=== PATIENT | female | born 1935 | race African-American/Black ===

== ENCOUNTER 2018-12-12 12:11 | Inpatient (IN) | payer MEDICARE, MEDICAID ==
[~2018-12-12] VITALS: Ht 162.6 cm; Wt 72.6 kg
[~2018-12-12 12:11] MED LIST: NKMED
[2018-12-12] MEDS ORDERED: AMLODIPINE BESY10 MG ORAL (12:45)
[2018-12-12] MEDS ORDERED: LEVETIRACE1000 MG/10 IV (12:45)
[2018-12-12] MEDS ORDERED: LEVOTHYROXINE100 MC1 IV (12:45)
[2018-12-12] MEDS ORDERED: PAPAYA ENZYME1 EACH PO (12:45)
[2018-12-12] MEDS ORDERED: ADULT WAL-100 MG/5 M ORAL (12:45)
[2018-12-12] MEDS ORDERED: FUROSEMIDE20 M1 ORAL (12:45)
[2018-12-12] MEDS ORDERED: SODIUM CARBONATE1 GM MC (12:45)
[2018-12-12] MEDS ORDERED: METOCLOPRA10 MG/10 M ORAL (12:45)
[2018-12-12] MEDS ORDERED: HEPARIN 51 UNIT/1 M IV (12:45)
[2018-12-12] MEDS ORDERED: FAMOTIDINE20 MG ORAL (12:45)
--- NOTE | 2018-12-12 12:49 | Emergency Room Report ---
History of Present Illness General Chief Complaint: Abnormal Labs Source: Medical Record Present Illness HPI 83-year-old female history of chronic respiratory failure, CHF hypertension, hypothyroidism, dementia trach, PEG, presents with anemia, last hemoglobin was 7.5 presenting to the ED for transfusion unknown start date, unknown aggravating alleviating factors unknown severity history is limited secondary to patient nonverbal Allergies: Coded Allergies: CODEINE (Verified Allergy, Unknown, HIVES, 09/15/09) Patient History Limited by: medical condition - nonverbal Past Medical History: see triage record Last Menstrual Period: n/a Reviewed Nursing Documentation: PMH: Agreed; PSxH: Agreed Nursing Documentation-PMH Past Medical History: No History, Except For Hx Cardiac Problems: Yes - CHF, HYPOTHYRDOISM, Hx Cancer: Yes Hx Gastrointestinal Problems: Yes - GERD, GASTROSTOMY, Hx Neurological Problems: Yes - alzheimer Hx Cerebrovascular Accident: Yes - HX OF CVA Hx Transient Ischemic Attacks: Yes - DR. Cori GALARZA STATED POSSIBLE TIA Hx Dementia: Yes Hx Alzheimer's Disease: Yes Hx Seizures: Yes - 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 Hx Memory Loss: Yes Hx Aphasia: Yes Review of Systems All Other Systems: limited - nonverbal Physical Exam Vital Signs Date Time Temp Pulse Resp B/P (MAP) Pulse Ox O2 Delivery O2 Flow Rate FiO2 12/12/18 12:16 98.2 81 18 132/79 (96) 100 Trach Collar 2.0 Sp02 EP Interpretation: reviewed, normal General Appearance: normal inspection, no apparent distress, non-toxic Head: normocephalic, atraumatic Eyes: bilateral eye PERRL, bilateral eye EOMI ENT: uvula midline, moist mucus membranes Neck: supple, thyroid normal, supple/symm/no masses Respiratory: lungs clear, no retraction, no accessory muscle use, rhonchi Cardiovascular #1: normal peripheral pulses, regular rate, rhythm, no edema, no gallop, no murmur Gastrointestinal: non tender, soft, no guarding, no rebound Rectal: heme negative stool - Rn Lactation Jose RN Musculoskeletal: normal inspection Neurologic: alert, responsive Psychiatric: mood/affect normal Skin: no rash, warm/dry Medical Decision Making Diagnostic Impression: Primary Impression: Anemia Qualified Codes: D64.9 - Anemia, unspecified Additional Impression: Interstitial edema Qualified Codes: R60.1 - Generalized edema ER Course 83-year-old female presents with drop in H&H, possibly iron deficiency anemia anemia of chronic disease, patient also found to have interstitial edema We will admit patient for possible transfusion versus serial H/H Will provide patient with a dose of Lasix here We will admit patient to telemetry floor Patient admitted to Dr. Willis at 1:36 PM Laboratory Tests Test 12/12/18 13:00 White Blood Count 10.4 K/UL (4.8-10.8) Red Blood Count 2.88 M/UL (4.20-5.40) L Hemoglobin 8.1 G/DL (12.0-16.0) L Hematocrit 25.8 % (37.0-47.0) L Mean Corpuscular Volume 90 FL (80-99) Mean Corpuscular Hemoglobin 28.0 PG (27.0-31.0) Mean Corpuscular Hemoglobin Concent 31.2 G/DL (32.0-36.0) L Red Cell Distribution Width 13.7 % (11.6-14.8) Platelet Count 317 K/UL (150-450) Mean Platelet Volume 5.4 FL (6.5-10.1) L Neutrophils (%) (Auto) 67.6 % (45.0-75.0) Lymphocytes (%) (Auto) 25.3 % (20.0-45.0) Monocytes (%) (Auto) 5.2 % (1.0-10.0) Eosinophils (%) (Auto) 1.3 % (0.0-3.0) Basophils (%) (Auto) 0.6 % (0.0-2.0) Prothrombin Time 9.6 SEC (9.30-11.50) Prothrombin Time INR 0.9 (0.9-1.1) PTT 30 SEC (23-33) Sodium Level 142 MMOL/L (136-145) Potassium Level 4.8 MMOL/L (3.5-5.1) Chloride Level 102 MMOL/L (98-107) Carbon Dioxide Level 32 MMOL/L (21-32) Anion Gap 8 mmol/L (5-15) Blood Urea Nitrogen 32 mg/dL (7-18) H Creatinine 1.1 MG/DL (0.55-1.30) Estimate Glomerular Filtration Rate mL/min (>60) Glucose Level 112 MG/DL (74-106) H Calcium Level 9.7 MG/DL (8.5-10.1) Total Bilirubin 0.3 MG/DL (0.2-1.0) Aspartate Amino Transferase (AST) 176 U/L (15-37) H Alanine Aminotransferase (ALT) 308 U/L (12-78) H Alkaline Phosphatase 488 U/L (46-116) H Total Protein 9.1 G/DL (6.4-8.2) H Albumin 2.7 G/DL (3.4-5.0) L Globulin 6.4 g/dL Albumin/Globulin Ratio 0.4 (1.0-2.7) L EKG Diagnostic Results EKG Time: 12:48 EP Interpretation: NSR, rate 88, QTc 416, no acute ST elevations, normal axis Rhythm Strip Diag. Results Rhythm Strip Time: 12:52 EP Interpretation: yes Rate: 98 Rhythm: NSR, no PVC's, no ectopy Chest X-Ray Diagnostic Results Chest X-Ray Diagnostic Results : Chest X-Ray Ordered: Yes # of Views/Limited/Complete: 1 View Indication: Other - preop EP Interpretation: Yes Interpretation: other - interstitial edema Impression: Other - interstitial edema Electronically Signed by: Kameron Graves MD Last Vital Signs Date Time Temp Pulse Resp B/P (MAP) Pulse Ox O2 Delivery O2 Flow Rate FiO2 12/12/18 12:16 98.2 81 18 132/79 (96) 100 Trach Collar 2.0 Disposition: ADMITTED INPATIENT Condition: Stable Kameron Graves MD Dec 12, 2018 12:49
--- NOTE | 2018-12-12 13:01 | Diagnostic Imaging Report ---
Indication: Shortness of breath Technique: One view of the chest Comparison: 01/30/2012 Findings: Patient's chin obscures the right lung apex. There is a tracheostomy. There is mild interstitial congestion bilaterally. The pleural spaces are grossly clear. The heart size is normal. Impression: Bilateral interstitial edema. Tracheostomy
[2018-12-12 13:19] LABS: BASOPHILS % (AUTO) 0.6 % (0.0-2.0); EOSINOPHILS % (AUTO) 1.3 % (0.0-3.0); HEMATOCRIT 25.8 % (37.0-47.0); HEMOGLOBIN 8.1 G/DL (12.0-16.0); LYMPHOCYTES % (AUTO) 25.3 % (20.0-45.0); MEAN CORPUSCULAR VOLUME 90 FL (80-99); MONOCYTES % (AUTO) 5.2 % (1.0-10.0); NEUTROPHILS % (AUTO) 67.6 % (45.0-75.0); PLATELET COUNT 317 K/UL (150-450); RED BLOOD COUNT 2.88 M/UL (4.20-5.40); RED CELL DISTRIBUTION WIDTH 13.7 % (11.6-14.8); WHITE BLOOD COUNT 10.4 K/UL (4.8-10.8)
[2018-12-12 13:25] LABS: ANION GAP 8 mmol/L (5-15); BLOOD UREA NITROGEN 32 mg/dL (7-18); CALCIUM 9.7 MG/DL (8.5-10.1); CARBON DIOXIDE 32 MMOL/L (21-32); CHLORIDE 102 MMOL/L (98-107); CREATININE 1.1 MG/DL (0.55-1.30); POTASSIUM 4.8 MMOL/L (3.5-5.1); SODIUM 142 MMOL/L (136-145)
[2018-12-12 13:29] LABS: ALANINE AMINOTRANSFERASE 308 U/L (12-78); ALBUMIN 2.7 G/DL (3.4-5.0); ALBUMIN/GLOBULIN RATIO 0.4 (1.0-2.7); ALKALINE PHOSPHATASE 488 U/L (46-116); ASPARTATE AMINO TRANSFERASE 176 U/L (15-37); BILIRUBIN,TOTAL 0.3 MG/DL (0.2-1.0); INR 0.9 (0.9-1.1)
[2018-12-12] MEDS ORDERED: Zolpidem 5mg tab ORAL PRN (14:00)
[2018-12-12] MEDS ORDERED: Miralax 17gm pkt ORAL PRN (14:00)
[2018-12-12] MEDS ORDERED: LORazepam Inj 2mg/ml 1ml IV PRN (14:00)
[2018-12-12 14:20] LABS: LACTATE DEHYDROGENASE 326 U/L (81-234)
[2018-12-12 14:31] VITALS: BP 117/52
[2018-12-12 14:53] LABS: % IRON SATURATION 28 % (15-50); IRON 54 ug/dL (50-175); TOTAL IRON BINDING CAPACITY 192 ug/dL (250-450)
[2018-12-12 15:07] VITALS: BP 116/58
[2018-12-12 16:00] VITALS: BP 122/61
[2018-12-12] MEDS ORDERED: HEPARIN SO5000 UNIT2 SUBQ (16:04)
[2018-12-12] MEDS ORDERED: LEVETIRACE100 MG/1 M GT (16:04)
[2018-12-12] MEDS ORDERED: LEVOTHYROXINE75 MCG GT (16:04)
[2018-12-12 21:00] VITALS: BP 130/70
[2018-12-13] VITALS: BP 127/63
[2018-12-13] MEDS ORDERED: Acetaminophen 650mg/20.3ml GT PRN (01:45)
[2018-12-13] MEDS ORDERED: Miralax 17gm pkt GT PRN (01:45)
[2018-12-13] MEDS ORDERED: Zolpidem 5mg tab GT PRN (01:45)
[2018-12-13 04:00] VITALS: BP 134/65
[2018-12-13 07:58] LABS: BASOPHILS % (AUTO) 0.7 % (0.0-2.0); EOSINOPHILS % (AUTO) 2.5 % (0.0-3.0); HEMOGLOBIN 9.4 G/DL (12.0-16.0); LYMPHOCYTES % (AUTO) 24.4 % (20.0-45.0); MEAN CORPUSCULAR VOLUME 90 FL (80-99); MONOCYTES % (AUTO) 5.5 % (1.0-10.0); NEUTROPHILS % (AUTO) 66.8 % (45.0-75.0); PLATELET COUNT 318 K/UL (150-450); RED BLOOD COUNT 3.33 M/UL (4.20-5.40); RED CELL DISTRIBUTION WIDTH 13.8 % (11.6-14.8); WHITE BLOOD COUNT 9.3 K/UL (4.8-10.8)
[2018-12-13 08:00] VITALS: BP 149/67
--- NOTE | 2018-12-13 08:09 | Consultation ---
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 Last hemoglobin at the facility was 7.5. Upon evaluation vital signs were stable. Oxygen 2 L provided via trach collar with pulse oximetry reaching 100%. Patient was afebrile. Laboratory work-up revealed no leukocytosis , hemoglobin 8.1 , hematocrit 25.8 with MCV of 90. Platelet count 317. Stable electrolytes. BUN 32 , creatinine 1.1. Glucose 112. AST 176 , ALT 308 , alkaline phosphatase 488. Total protein 9.1. Albumin 2.7 . EKG revealed sinus rhythm, no acute ischemic changes. CXR showed bilateral interstitial edema and tracheostomy. In emergency department patient received a dose of Lasix and admitted to telemetry floor for further management Allergies: Coded Allergies: CODEINE (Verified Allergy, Unknown, HIVES, 09/15/09) Medication History Scheduled Amlodipine Besylate* (Amlodipine Besylate*), 10 MG ORAL DAILY, (Reported) Famotidine (Famotidine), 20 MG ORAL DAILY, (Reported) Furosemide* (Lasix*), 20 MG ORAL DAILY, (Reported) Guaifenesin* (Adult Wal-Tussin*), 10 ML ORAL Q4H, (Reported) Heparin Sod (Porcine) (Heparin Sodium*), 5,000 UNITS SUBQ EVERY 12 HOURS, ( Reported) Levetiracetam* (Levetiracetam*), 1,000 MG GT BID, (Reported) Levothyroxine Sodium* (Levothyroxine Sodium*), 50 MCG GT DAILY, (Reported) Metoclopramide Hcl* (Metoclopramide Hcl*), 10 MG ORAL EVERY 6 HOURS, (Reported) Miscellaneous Medications No Known Medications (No Known Medications), (Reported) Papaya (Papaya Enzyme), 1 EACH PO, (Reported) Sodium Carbonate (Sodium Carbonate), 1 GM MC, (Reported) Discontinued Medications Heparin Sodium,Porcine/Pf (Heparin 5 Unit/5 ml (1/ml) Syr), 1 UNIT IV, (Reported ) Discontinued Reason: Pt stopped taking med Levetiracetam In Nacl (Iso-Os) (Levetiraceta-Nacl 1,000 Mg/100), 1,000 MG IV, ( Reported) Discontinued Reason: MD discontinued med Levothyroxine Sodium* (Levothyroxine Sodium*), 50 MCG IV DAILY, (Reported) Discontinued Reason: Pt stopped taking med Patient History History Provided By: Medical Record Healthcare decision maker Resuscitation status Full Code Advanced Directive on File Review of Systems ROS Narrative unable to obtain ROS due to patient mental status Physical Exam General Appearance: other - bedridden, chroncially ill looking,aphasic, poorly responsive female in NAD Lines, tubes and drains: peripheral HEENT: normocephalic, atraumatic Neck: normal alignment, trach - Shiley #6, secretions small, yellow, thin Respiratory/Chest: lungs clear, no respiratory distress, no accessory muscle use Cardiovascular/Chest: normal rate Abdomen: normal bowel sounds, non tender, soft, feeding tube - Gtube Extremities: no calf tenderness, no edema Skin Exam: warm/dry Neurologic: abnormal gait - bedridden , other - poorly responsive Musculoskeletal: atrophy - BLE Last 24 Hour Vital Signs Date Time Temp Pulse Resp B/P (MAP) Pulse Ox O2 Delivery O2 Flow Rate FiO2 12/13/18 07:54 98 T-Piece 6.0 28 12/13/18 04:00 98.2 81 20 134/65 (88) 100 12/13/18 04:00 6.0 28 12/13/18 04:00 92 12/13/18 00:01 99 T-Piece 6.0 28 12/13/18 00:00 78 12/13/18 00:00 97.9 84 20 127/63 (84) 98 12/13/18 00:00 6.0 28 12/12/18 21:00 Trach Collar 6.0 12/12/18 21:00 98.4 87 18 130/70 (90) 100 12/12/18 21:00 6.0 28 12/12/18 20:00 98 T-Piece 6.0 28 12/12/18 20:00 84 12/12/18 16:15 Trach Collar 2.0 12/12/18 16:00 81 12/12/18 16:00 97.8 81 18 122/61 (81) 98 12/12/18 15:39 98.2 65 18 116/58 100 Trach Collar 2.0 12/12/18 15:07 98.2 65 18 116/58 100 Trach Collar 2.0 12/12/18 14:31 61 24 117/52 95 Trach Collar 2.0 12/12/18 12:16 98.2 81 18 132/79 (96) 100 Trach Collar 2.0 Intake and Output 12/12/18 12/13/18 18:59 06:59 Intake Total 320 ml Output Total 400 ml Balance -80 ml Intake Free Water 80 ml Tube Feeding 240 ml Output Urine Total 400 ml # Bowel Movements 3 1 Laboratory Tests Test 12/12/18 13:00 12/12/18 13:38 12/12/18 17:50 12/13/18 06:02 White Blood Count 10.4 K/UL (4.8-10.8) Pending Red Blood Count 2.88 M/UL (4.20-5.40) L Pending Hemoglobin 8.1 G/DL (12.0-16.0) L Pending Hematocrit 25.8 % (37.0-47.0) L Pending Mean Corpuscular Volume 90 FL (80-99) Pending Mean Corpuscular Hemoglobin 28.0 PG (27.0-31.0) Pending Mean Corpuscular Hemoglobin Concent 31.2 G/DL (32.0-36.0) L Pending Red Cell Distribution Width 13.7 % (11.6-14.8) Pending Platelet Count 317 K/UL (150-450) Pending Mean Platelet Volume 5.4 FL (6.5-10.1) L Pending Neutrophils (%) (Auto) 67.6 % (45.0-75.0) Pending Lymphocytes (%) (Auto) 25.3 % (20.0-45.0) Pending Monocytes (%) (Auto) 5.2 % (1.0-10.0) Pending Eosinophils (%) (Auto) 1.3 % (0.0-3.0) Pending Basophils (%) (Auto) 0.6 % (0.0-2.0) Pending Differential Total Cells Counted 100 Neutrophils % (Manual) 71 % (45-75) Lymphocytes % (Manual) 22 % (20-45) Monocytes % (Manual) 6 % (1-10) Eosinophils % (Manual) 0 % (0-3) Basophils % (Manual) 0 % (0-2) Band Neutrophils 1 % (0-8) Platelet Estimate Adequate Platelet Morphology Normal Hypochromasia 1+ Erythrocyte Sedimentation Rate 130 MM/HR (0-30) H Reticulocyte Count 1.9 % (0.5-2.0) Prothrombin Time 9.6 SEC (9.30-11.50) Prothromb Time International Ratio 0.9 (0.9-1.1) Activated Partial Thromboplast Time 30 SEC (23-33) Sodium Level 142 MMOL/L (136-145) Pending Potassium Level 4.8 MMOL/L (3.5-5.1) Pending Chloride Level 102 MMOL/L (98-107) Pending Carbon Dioxide Level 32 MMOL/L (21-32) Pending Anion Gap 8 mmol/L (5-15) Blood Urea Nitrogen 32 mg/dL (7-18) H Pending Creatinine 1.1 MG/DL (0.55-1.30) Pending Estimat Glomerular Filtration Rate mL/min (>60) Pending Glucose Level 112 MG/DL (74-106) H Pending Calcium Level 9.7 MG/DL (8.5-10.1) Pending Iron Level 54 ug/dL (50-175) Total Iron Binding Capacity 192 ug/dL (250-450) L Percent Iron Saturation 28 % (15-50) Unsaturated Iron Binding 138 ug/dL (112-346) Total Bilirubin 0.3 MG/DL (0.2-1.0) Pending Aspartate Amino Transf (AST/SGOT) 176 U/L (15-37) H Pending Alanine Aminotransferase (ALT/SGPT) 308 U/L (12-78) H Pending Alkaline Phosphatase 488 U/L (46-116) H Pending Lactate Dehydrogenase 326 U/L (81-234) H Total Protein 9.1 G/DL (6.4-8.2) H Pending Albumin 2.7 G/DL (3.4-5.0) L Pending Globulin 6.4 g/dL Pending Albumin/Globulin Ratio 0.4 (1.0-2.7) L Pending Carcinoembryonic Antigen Pending Vitamin B12 Level 1860 PG/ML (193-986) H Folate 61.7 NG/ML (8.6-58.9) H Lactic Acid Level 0.70 mmol/L (0.4-2.0) Total Protein (PEP) Pending Albumin (PEP) Pending Globulin (PEP) Pending [id number] Pending [id number] Pending Beta Globulins Pending Beta Gamma Globulin Pending PEP Abnormal Protein Bands Pending Protein Electrophoresis Interpret Pending Triglycerides Level Pending Cholesterol Level Pending LDL Cholesterol Pending HDL Cholesterol Pending Cholesterol/HDL Ratio Pending Thyroid Stimulating Hormone (TSH) Pending Height (Feet): 5 Height (Inches): 4.00 Weight (Pounds): 150 Medications Current Medications Medications (Trade) Dose Ordered Sig/Maicol Route PRN Reason Start Time Stop Time Status Last Admin Dose Admin Acetaminophen (Tylenol) 650 mg Q4H PRN GT fever 12/13/18 01:45 01/12/19 01:44 Dextrose (Dextrose 50%) 25 ml Q30MIN PRN IV Hypoglycemia 12/12/18 14:00 01/11/19 13:59 Dextrose (Dextrose 50%) 50 ml Q30MIN PRN IV Hypoglycemia 12/12/18 14:00 01/11/19 13:59 Famotidine (Pepcid) 20 mg DAILY GT 12/13/18 09:00 01/12/19 08:59 Levetiracetam (Keppra) 1,000 mg BID GT 12/13/18 09:00 01/12/19 08:59 Lorazepam (Ativan 2mg/ml 1ml) 0.5 mg Q4H PRN IV For Anxiety 12/12/18 14:00 12/19/18 13:59 Ondansetron HCl (Zofran) 4 mg Q6H PRN IVP Nausea & Vomiting 12/12/18 14:00 01/11/19 13:59 Polyethylene Glycol (Miralax) 17 gm HSPRN PRN GT Constipation 12/13/18 01:45 01/11/19 13:59 Sodium Chloride 1,000 ml @ 10 mls/hr Q24H ONCE IV 12/12/18 13:08 12/13/18 13:07 Zolpidem Tartrate (Ambien) 5 mg HSPRN PRN GT Insomnia 12/13/18 01:45 12/19/18 13:59 Assessment/Plan Assessment/Plan: ASSESSMENT anemia chronic resp failure with trach status hx of CVA with aphasia CHF HTN HLD dysphagia, PEG elevated LFT mild pulmonary HTN hypothyroidism seizure disorder , 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 high serum protein low albumin, probably protein calorie malnutrition PLAN OF CARE tele anemia w/up c/w ACD, check CEA , stool OB( first done in ED -negative) monitor HH with goal to keep Hgb above 7, Hgb up to 9.4 this am trach care , pulm toilet CXR - bilateral interstitial edema ECHO preliminary results : with pEF 60%, mild PNH and evidence of mild pum HTN- RVSP of 45 pro BNP 129 s/p Lasix x 1 in ED strict asp precautions, GT feeding Venous Duplex BLE BP management with CCB hepatitis panel, abd US, trend LFT -slightly down continue SNF meds, concerning elevated ESR, elevated protein, check SPEP seizure precautions, continue Keppra TSH WNL, cont current dose of levothyroxine lipid panel with elevated TC and LDL, add statin GI prophylaxis asp precautions, GT feeding dietary eval supportive care case discussed and evaluated by supervising physician Nenita Stewart NP Dec 13, 2018 08:09
[2018-12-13] MEDS: levETIRAcetam 500mg/5ml Liquid GT SCH ×2 (08:37→17:51)
[2018-12-13 09:10] LABS: ALANINE AMINOTRANSFERASE 275 U/L (12-78); ALBUMIN 2.9 G/DL (3.4-5.0); ALBUMIN/GLOBULIN RATIO 0.4 (1.0-2.7); ALKALINE PHOSPHATASE 492 U/L (46-116); ANION GAP 12 mmol/L (5-15); ASPARTATE AMINO TRANSFERASE 122 U/L (15-37); BILIRUBIN,TOTAL 0.3 MG/DL (0.2-1.0); BLOOD UREA NITROGEN 32 mg/dL (7-18); CALCIUM 10.6 MG/DL (8.5-10.1); CARBON DIOXIDE 30 MMOL/L (21-32); CHLORIDE 100 MMOL/L (98-107); CHOLESTEROL 207 MG/DL (< 200); CREATININE 1.1 MG/DL (0.55-1.30); HDL CHOLESTEROL 54 MG/DL (40-60); POTASSIUM 4.9 MMOL/L (3.5-5.1); SODIUM 141 MMOL/L (136-145); TRIGLYCERIDES 166 MG/DL (30-150)
[2018-12-13 12:00] VITALS: BP 133/63
--- NOTE | 2018-12-13 13:22 | Cardiology Report ---
APPROVED REPORT EKG Measurement Heart [id number] Normal sinus rhythm Cannot rule out Anterior infarct, age undetermined Abnormal ECG
[2018-12-13] MEDS: Vancomycin 1gm in D5W 275ml IVPB SCH (15:23)
[2018-12-13 16:00] VITALS: BP 116/75
[2018-12-13 20:00] VITALS: BP 124/76
[2018-12-14] VITALS: BP 121/51
--- NOTE | 2018-12-14 01:30 | History and Physical Report ---
DATE OF ADMISSION: 12/12/2018 TIME: 3 p.m. CONSULTANTS: 1. Alexa Phipps M.D. 2. Dr. Orantes. CHIEF COMPLAINT: Anemia. BRIEF HISTORY: This is an 83-year-old female from [facility], presented with anemia, found to have 7.5, repeat 8.1 in the ER. The patient was admitted to telemetry for further care. Currently, trach aerosol, lethargy, and nonverbal. REVIEW OF SYSTEMS: Unavailable. PAST MEDICAL HISTORY: Includes respiratory failure, anemia, and hypertension. PAST SURGICAL HISTORY: Trach. MEDICATIONS: Include vancomycin, amlodipine, polyethylene glycol, zolpidem, Zofran, and lorazepam. ALLERGIES: Codeine. SOCIAL HISTORY: No smoking. No alcohol. No intravenous drug abuse. FAMILY HISTORY: Noncontributory. PHYSICAL EXAMINATION: GENERAL: Lethargic in bed, trach aerosol, and nonverbal. VITAL SIGNS: Temperature is 98 degrees, pulse 80, respirations 20, and blood pressure 132/63. CARDIOVASCULAR: No murmurs. LUNGS: Poor air exchange. ABDOMEN: Bowel sounds positive. Nontender. Nondistended. EXTREMITIES: No cyanosis, clubbing, or edema NEUROLOGIC: The patient is flaccid in bed, not following directions. LABORATORY AND DIAGNOSTIC DATA: Labs at this time show initially hemoglobin 8.1, now to 9.4; otherwise CBC is normal. BMP show BUN 32. AST 132, ALT 275, and alkaline phosphatase 439. BNP is 129. Albumin 2.9. INR is 0.9. PTT is 30. ASSESSMENT: Respiratory failure, trach aerosol, anemia, and hypertension. PLAN: 1. PT. 2. Dietary evaluation. 3. O2 and pulmonary treatment. 4. Trach care. 5. Antibiotics p.r.n. 6. CBC and BMP in the morning. Dustin Willis D.O. DR: IASBEL JOB#: [id number] CC:
[2018-12-14 04:00] VITALS: BP 131/59
[2018-12-14 07:49] LABS: BASOPHILS % (AUTO) 0.6 % (0.0-2.0); EOSINOPHILS % (AUTO) 3.3 % (0.0-3.0); HEMATOCRIT 25.6 % (37.0-47.0); HEMOGLOBIN 8.1 G/DL (12.0-16.0); LYMPHOCYTES % (AUTO) 26.6 % (20.0-45.0); MEAN CORPUSCULAR VOLUME 90 FL (80-99); NEUTROPHILS % (AUTO) 64.5 % (45.0-75.0); PLATELET COUNT 358 K/UL (150-450); RED BLOOD COUNT 2.86 M/UL (4.20-5.40); RED CELL DISTRIBUTION WIDTH 13.4 % (11.6-14.8); WHITE BLOOD COUNT 12.2 K/UL (4.8-10.8)
[2018-12-14 08:00] VITALS: BP 116/57
[2018-12-14 08:16] LABS: ALANINE AMINOTRANSFERASE 188 U/L (12-78); ALBUMIN 2.7 G/DL (3.4-5.0); ALBUMIN/GLOBULIN RATIO 0.4 (1.0-2.7); ALKALINE PHOSPHATASE 455 U/L (46-116); ANION GAP 10 mmol/L (5-15); ASPARTATE AMINO TRANSFERASE 54 U/L (15-37); BILIRUBIN,TOTAL 0.2 MG/DL (0.2-1.0); BLOOD UREA NITROGEN 37 mg/dL (7-18); CALCIUM 10.2 MG/DL (8.5-10.1); CARBON DIOXIDE 31 MMOL/L (21-32); CHLORIDE 100 MMOL/L (98-107); CREATININE 1.3 MG/DL (0.55-1.30); POTASSIUM 4.5 MMOL/L (3.5-5.1); SODIUM 141 MMOL/L (136-145)
[2018-12-14] MEDS: Albuterol/Ipratropium 3ml neb HHN SCH ×3 (08:33→20:08)
[2018-12-14] MEDS: levETIRAcetam 500mg/5ml Liquid GT SCH ×2 (08:46→17:22)
[2018-12-14] MEDS ORDERED: Albuterol/Ipratropium 3ml neb HHN PRN (09:45)
--- NOTE | 2018-12-14 09:47 | Pulmonology Progress Note ---
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 high serum protein low albumin, probably protein calorie malnutrition PLAN OF CARE tele empiric abx/Vanco ID follows HHN ATC and prn CXR this am with possible PNA, add Cefepime sputum cx trach care , suctioned prn initial CXR - bilateral interstitial edema ECHO preliminary results : with pEF 60% and evidence of mild pulm HTN- RVSP of 45 pro BNP 129 s/p Lasix x 1 in ED strict asp precautions, GT feeding Venous Duplex BLE BP management with CCB lipid panel with elevated TC and LDL, add statin anemia w/up c/w ACD, check CEA , stool OB( first done in ED -negative) monitor HH with goal to keep Hgb above 7, hepatitis panel, abd US, trend LFT - trending down continue SNF meds, concerning elevated ESR, elevated protein, check SPEP seizure precautions, continue Keppra TSH WNL, cont current dose of levothyroxine GI prophylaxis asp precautions, GT feeding dietary eval supportive care daughter at the bedside, discussed goals of care. patient with DNR/DNI status - not wants chest compression if heart stops , but otherwise wants full treatment case discussed and evaluated by supervising physician Subjective Allergies: Coded Allergies: CODEINE (Verified Allergy, Unknown, HIVES, 09/15/09) Subjective this am congested, low grade fever and leukocytosis, HHN done and suctioned by RT daughter at the bedside Objective Last 24 Hour Vital Signs Date Time Temp Pulse Resp B/P (MAP) Pulse Ox O2 Delivery O2 Flow Rate FiO2 12/14/18 08:40 88 116/57 12/14/18 08:29 101 20 96 T-Piece 10.0 35 100 20 93 12/14/18 08:00 97.7 88 25 116/57 (76) 99 12/14/18 07:15 95 T-Piece 8.0 30 12/14/18 04:00 99.5 72 21 131/59 (83) 99 12/14/18 04:00 89 12/14/18 04:00 6.0 28 12/14/18 00:36 96 T-Piece 8.0 30 12/14/18 00:00 98.5 88 20 121/51 (74) 92 12/14/18 00:00 89 12/14/18 00:00 6.0 28 12/13/18 21:00 Trach Collar 6.0 12/13/18 20:00 6.0 28 12/13/18 20:00 80 12/13/18 20:00 98.2 94 21 124/76 (92) 96 12/13/18 19:59 98 T-Piece 6.0 28 12/13/18 16:00 97.4 89 22 116/75 (89) 96 12/13/18 16:00 84 12/13/18 16:00 6.0 28 12/13/18 13:45 97 T-Piece 6.0 28 12/13/18 12:00 81 12/13/18 12:00 6.0 28 12/13/18 12:00 98.1 80 22 133/63 (86) 97 12/13/18 11:01 85 150/67 Intake and Output 12/13/18 12/14/18 19:00 07:00 Intake Total 25 ml 675 ml Output Total 100 ml Balance 25 ml 575 ml Intake Free Water 300 ml Tube Feeding 25 ml 375 ml Output Urine Total 100 ml # Voids 2 # Bowel Movements 1 Objective General Appearance: bedridden, chronically ill looking,aphasic, poorly responsive, congested female in NAD Lines, tubes and drains: peripheral HEENT: normocephalic, atraumatic Neck: normal alignment, trach - Shiley #6, secretions small, yellow, thin Respiratory/Chest: rhonchi bilaterally Cardiovascular/Chest: normal rate, occasionally tachy Abdomen: normal bowel sounds, non tender, soft, feeding tube - G tube Extremities: no calf tenderness, no edema Skin Exam: warm/dry Neurologic: abnormal gait - bedridden , poorly responsive Musculoskeletal: atrophy BLE Microbiology Date/Time Source Procedure Growth Status 12/12/18 13:30 Blood Blood Culture - Preliminary Staphylococcus Sp Coag Neg Resulted 12/12/18 13:15 Blood Blood Culture - Preliminary Staphylococcus Sp Coag Neg Resulted Laboratory Tests 12/14/18 05:50: White Blood Count 12.2H, Red Blood Count 2.86L, Hemoglobin 8.1L, Hematocrit 25.6L, Mean Corpuscular Volume 90, Mean Corpuscular Hemoglobin 28.2, Mean Corpuscular Hemoglobin Concent 31.4L, Red Cell Distribution Width 13.4, Platelet Count 358, Mean Platelet Volume 4.8L, Neutrophils (%) (Auto) 64.5, Lymphocytes (%) (Auto) 26.6, Monocytes (%) (Auto) 5.0, Eosinophils (%) (Auto) 3.3H, Basophils (%) (Auto) 0.6, Sodium Level 141, Potassium Level 4.5, Chloride Level 100, Carbon Dioxide Level 31, Anion Gap 10, Blood Urea Nitrogen 37H, Creatinine 1.3, Estimat Glomerular Filtration Rate , Glucose Level 150H, Calcium Level 10.2H, Total Bilirubin 0.2, Aspartate Amino Transf (AST/SGOT) 54H , Alanine Aminotransferase (ALT/SGPT) 188H, Alkaline Phosphatase 455H, Total Protein 9.1H, Albumin 2.7L, Globulin 6.4, Albumin/Globulin Ratio 0.4L, Hepatitis A IgM Antibody [Pending], Hepatitis B Surface Antigen [Pending], Hepatitis B Core IgM Antibody [Pending], Hepatitis C Antibody [Pending] Current Medications Medications (Trade) Dose Ordered Sig/Maicol Route PRN Reason Start Time Stop Time Status Last Admin Dose Admin Acetaminophen (Tylenol) 650 mg Q4H PRN GT fever 12/13/18 01:45 01/12/19 01:44 Albuterol/ Ipratropium (Albuterol/ Ipratropium) 3 ml TIDRT HHN 12/14/18 08:00 12/19/18 07:59 12/14/18 08:33 Amlodipine Besylate (Norvasc) 5 mg DAILY ORAL 12/13/18 11:00 01/12/19 10:59 12/13/18 11:01 Dextrose (Dextrose 50%) 25 ml Q30MIN PRN IV Hypoglycemia 12/12/18 14:00 01/11/19 13:59 Dextrose (Dextrose 50%) 50 ml Q30MIN PRN IV Hypoglycemia 12/12/18 14:00 01/11/19 13:59 Famotidine (Pepcid) 20 mg DAILY GT 12/13/18 09:00 01/12/19 08:59 12/14/18 08:35 Levetiracetam (Keppra) 1,000 mg BID GT 12/13/18 09:00 01/12/19 08:59 12/14/18 08:46 Lorazepam (Ativan 2mg/ml 1ml) 0.5 mg Q4H PRN IV For Anxiety 12/12/18 14:00 12/19/18 13:59 Ondansetron HCl (Zofran) 4 mg Q6H PRN IVP Nausea & Vomiting 12/12/18 14:00 01/11/19 13:59 Polyethylene Glycol (Miralax) 17 gm HSPRN PRN GT Constipation 12/13/18 01:45 01/11/19 13:59 Vancomycin HCl (Vanco rx to dose) 1 ea DAILY PRN MISC Per rx protocol 12/13/18 14:45 01/12/19 14:44 Vancomycin HCl 1 gm/Dextrose 275 ml @ 183.708 mls/hr Q24H IVPB 12/13/18 16:00 12/18/18 15:59 12/13/18 15:23 Zolpidem Tartrate (Ambien) 5 mg HSPRN PRN GT Insomnia 12/13/18 01:45 12/19/18 13:59 Nenita Stewart [employer] Dec 14, 2018 09:47
--- NOTE | 2018-12-14 09:52 | General Progress Note ---
Assessment/Plan Problem List: (1) Respiratory failure ICD Codes: J96.90 - Respiratory failure, unspecified, unspecified whether with hypoxia or hypercapnia SNOMED: 533838638 (2) HTN (hypertension) ICD Codes: I10 - Essential (primary) hypertension SNOMED: 48766090 (3) Leukocytosis ICD Codes: D72.829 - Elevated white blood cell count, unspecified SNOMED: 998718456, 945664108 (4) Anemia ICD Codes: D64.9 - Anemia, unspecified SNOMED: 617268145, 771639532 Qualifiers: Qualified Codes: D64.9 - Anemia, unspecified Status: stable, progressing Assessment/Plan: o2 pulm tx abx prn transfuse prn cbc bmp am Subjective Constitutional: Reports: weakness Allergies: Coded Allergies: CODEINE (Verified Allergy, Unknown, HIVES, 09/15/09) All Systems: reviewed and negative except above Subjective trach aerosol asleep Objective Last 24 Hour Vital Signs Date Time Temp Pulse Resp B/P (MAP) Pulse Ox O2 Delivery O2 Flow Rate FiO2 12/14/18 08:40 88 116/57 12/14/18 08:29 101 20 96 T-Piece 10.0 35 100 20 93 12/14/18 08:00 97.7 88 25 116/57 (76) 99 12/14/18 07:15 95 T-Piece 8.0 30 12/14/18 04:00 99.5 72 21 131/59 (83) 99 12/14/18 04:00 89 12/14/18 04:00 6.0 28 12/14/18 00:36 96 T-Piece 8.0 30 12/14/18 00:00 98.5 88 20 121/51 (74) 92 12/14/18 00:00 89 12/14/18 00:00 6.0 28 12/13/18 21:00 Trach Collar 6.0 12/13/18 20:00 6.0 28 12/13/18 20:00 80 12/13/18 20:00 98.2 94 21 124/76 (92) 96 12/13/18 19:59 98 T-Piece 6.0 28 12/13/18 16:00 97.4 89 22 116/75 (89) 96 12/13/18 16:00 84 12/13/18 16:00 6.0 28 12/13/18 13:45 97 T-Piece 6.0 28 12/13/18 12:00 81 12/13/18 12:00 6.0 28 12/13/18 12:00 98.1 80 22 133/63 (86) 97 12/13/18 11:01 85 150/67 Intake and Output 12/13/18 12/14/18 19:00 07:00 Intake Total 25 ml 675 ml Output Total 100 ml Balance 25 ml 575 ml Intake Free Water 300 ml Tube Feeding 25 ml 375 ml Output Urine Total 100 ml # Voids 2 # Bowel Movements 1 Laboratory Tests 12/14/18 05:50: White Blood Count 12.2H, Red Blood Count 2.86L, Hemoglobin 8.1L, Hematocrit 25.6L, Mean Corpuscular Volume 90, Mean Corpuscular Hemoglobin 28.2, Mean Corpuscular Hemoglobin Concent 31.4L, Red Cell Distribution Width 13.4, Platelet Count 358, Mean Platelet Volume 4.8L, Neutrophils (%) (Auto) 64.5, Lymphocytes (%) (Auto) 26.6, Monocytes (%) (Auto) 5.0, Eosinophils (%) (Auto) 3.3H, Basophils (%) (Auto) 0.6, Sodium Level 141, Potassium Level 4.5, Chloride Level 100, Carbon Dioxide Level 31, Anion Gap 10, Blood Urea Nitrogen 37H, Creatinine 1.3, Estimat Glomerular Filtration Rate , Glucose Level 150H, Calcium Level 10.2H, Total Bilirubin 0.2, Aspartate Amino Transf (AST/SGOT) 54H , Alanine Aminotransferase (ALT/SGPT) 188H, Alkaline Phosphatase 455H, Total Protein 9.1H, Albumin 2.7L, Globulin 6.4, Albumin/Globulin Ratio 0.4L, Hepatitis A IgM Antibody [Pending], Hepatitis B Surface Antigen [Pending], Hepatitis B Core IgM Antibody [Pending], Hepatitis C Antibody [Pending] Height (Feet): 5 Height (Inches): 4.00 Weight (Pounds): 150 General Appearance: lethargic EENT: normal ENT inspection Neck: normal alignment Cardiovascular: normal peripheral pulses, normal rate, regular rhythm Respiratory/Chest: chest wall non-tender, lungs clear, normal breath sounds Abdomen: normal bowel sounds, non tender, soft Extremities: normal inspection Edema: no edema noted Arm (L), no edema noted Arm (R), no edema noted Leg (L), no edema noted Leg (R), no edema noted Pedal (L), no edema noted Pedal (R), no edema noted Generalized Neurologic: motor weakness Skin: normal pigmentation, warm/dry Dustin Willis DO Dec 14, 2018 09:52
--- NOTE | 2018-12-14 10:14 | Diagnostic Imaging Report ---
EXAM: XR Chest, 1 View CLINICAL HISTORY: COUGH TECHNIQUE: Frontal view of the chest. COMPARISON: No relevant prior studies available. FINDINGS: Lungs: Reduced lung volumes and interstitial pulmonary opacities. Pleural space: Unremarkable. No pneumothorax. Heart: Mild cardiomegaly. Mediastinum: Unremarkable. Bones joints: No acute fracture. Tubes, lines and devices: Tracheostomy. IMPRESSION: Reduced lung volumes and interstitial pulmonary opacities. Could be from interstitial edema and or pneumonia. There is a broader differential
--- NOTE | 2018-12-14 10:16 | Hematology/Onc Progress Note ---
Assessment/Plan Assessment/Plan Assessment and Recs: # Anemia of chronic disease due to underlying chronic medical issues, multifactorial --> Anemia workup has been reviewed and elev ferritin and low sat % --> No evidence of hemolysis is noted, peripheral smear has been reviewed. --> Hgb goal >7. Transfuse prn. --> Epogen or iron at this time is not particularly indicated --> Medications have been reviewed --> low threshold for gi evaluation in case has occult + --> bone marrow biopsy is not indicated given the other more likely causes # HYpercalcemia with elev Ca++ on admission 01-09 --> give ivf have been started --> potentially due to dehydration --> pamidronate if doesn't correct # Transaminitis - may be related to meds v fluid overload --> diuresis as needed, lasix given --> ast/alt better # Bilateral interstitial edema --> diuresis and abx prn # Respiratory failure s/p trach --> per pilm # Dyshpagia s/p gtube --> per gi # Dvt ppx scds The timing of this note does not necessarily reflect the time of the patient was seen. Greatly appreciate consultation. Subjective Constitutional: Denies: no symptoms, chills, fever, malaise, weakness, other HEENT: Denies: no symptoms, eye pain, blurred vision, tearing, double vision, ear pain, ear discharge, nose pain, nose congestion, throat pain, throat swelling, mouth pain, mouth swelling, other Respiratory: Denies: no symptoms, cough, shortness of breath, SOB with excertion, SOB at rest, sputum, wheezing, other Endocrine: Denies: no symptoms, excessive sweating, flushing, intolerance to cold, intolerance to heat, increased hunger, increased thirst, increased urine, unexplained weight gain, unexplained weight loss, other Hematologic/Lymphatic: Denies: no symptoms, anemia, easy bleeding, easy bruising, adenopathy, other Allergies: Coded Allergies: CODEINE (Verified Allergy, Unknown, HIVES, 09/15/09) Subjective 12/14: nonverbal, daughter by bedside, anemia panel reviewed, no bleeding chills Objective Objective Current Medications Medications (Trade) Dose Ordered Sig/Maicol Route PRN Reason Start Time Stop Time Status Last Admin Dose Admin Acetaminophen (Tylenol) 650 mg Q4H PRN GT fever 12/13/18 01:45 01/12/19 01:44 Albuterol/ Ipratropium (Albuterol/ Ipratropium) 3 ml Q4H PRN HHN Shortness of Breath 12/14/18 09:45 12/19/18 09:44 Albuterol/ Ipratropium (Albuterol/ Ipratropium) 3 ml TIDRT HHN 12/14/18 08:00 12/19/18 07:59 12/14/18 08:33 Amlodipine Besylate (Norvasc) 5 mg DAILY ORAL 12/13/18 11:00 01/12/19 10:59 12/13/18 11:01 Dextrose (Dextrose 50%) 25 ml Q30MIN PRN IV Hypoglycemia 12/12/18 14:00 01/11/19 13:59 Dextrose (Dextrose 50%) 50 ml Q30MIN PRN IV Hypoglycemia 12/12/18 14:00 01/11/19 13:59 Famotidine (Pepcid) 20 mg DAILY GT 12/13/18 09:00 01/12/19 08:59 12/14/18 08:35 Levetiracetam (Keppra) 1,000 mg BID GT 12/13/18 09:00 01/12/19 08:59 12/14/18 08:46 Lorazepam (Ativan 2mg/ml 1ml) 0.5 mg Q4H PRN IV For Anxiety 12/12/18 14:00 12/19/18 13:59 Ondansetron HCl (Zofran) 4 mg Q6H PRN IVP Nausea & Vomiting 12/12/18 14:00 01/11/19 13:59 Polyethylene Glycol (Miralax) 17 gm HSPRN PRN GT Constipation 12/13/18 01:45 01/11/19 13:59 Vancomycin HCl (Vanco rx to dose) 1 ea DAILY PRN MISC Per rx protocol 12/13/18 14:45 01/12/19 14:44 Vancomycin HCl 1 gm/Dextrose 275 ml @ 183.708 mls/hr Q24H IVPB 12/13/18 16:00 12/18/18 15:59 12/13/18 15:23 Zolpidem Tartrate (Ambien) 5 mg HSPRN PRN GT Insomnia 12/13/18 01:45 12/19/18 13:59 Last 24 Hour Vital Signs Date Time Temp Pulse Resp B/P (MAP) Pulse Ox O2 Delivery O2 Flow Rate FiO2 12/14/18 08:40 88 116/57 12/14/18 08:29 101 20 96 T-Piece 10.0 35 100 20 93 12/14/18 08:00 97.7 88 25 116/57 (76) 99 12/14/18 07:15 95 T-Piece 8.0 30 12/14/18 04:00 99.5 72 21 131/59 (83) 99 12/14/18 04:00 89 12/14/18 04:00 6.0 28 12/14/18 00:36 96 T-Piece 8.0 30 12/14/18 00:00 98.5 88 20 121/51 (74) 92 12/14/18 00:00 89 12/14/18 00:00 6.0 28 12/13/18 21:00 Trach Collar 6.0 12/13/18 20:00 6.0 28 12/13/18 20:00 80 12/13/18 20:00 98.2 94 21 124/76 (92) 96 12/13/18 19:59 98 T-Piece 6.0 28 12/13/18 16:00 97.4 89 22 116/75 (89) 96 12/13/18 16:00 84 12/13/18 16:00 6.0 28 12/13/18 13:45 97 T-Piece 6.0 28 12/13/18 12:00 81 12/13/18 12:00 6.0 28 12/13/18 12:00 98.1 80 22 133/63 (86) 97 12/13/18 11:01 85 150/67 12/13/18 09:00 Trach Collar 6.0 12/13/18 08:00 85 12/13/18 08:00 6.0 28 12/13/18 08:00 98.2 87 24 149/67 (94) 98 12/13/18 07:54 98 T-Piece 6.0 28 12/13/18 04:00 98.2 81 20 134/65 (88) 100 12/13/18 04:00 6.0 28 12/13/18 04:00 92 12/13/18 00:01 99 T-Piece 6.0 28 12/13/18 00:00 78 12/13/18 00:00 97.9 84 20 127/63 (84) 98 12/13/18 00:00 6.0 28 12/12/18 21:00 Trach Collar 6.0 12/12/18 21:00 98.4 87 18 130/70 (90) 100 12/12/18 21:00 6.0 28 12/12/18 20:00 98 T-Piece 6.0 28 12/12/18 20:00 84 12/12/18 16:15 Trach Collar 2.0 12/12/18 16:00 81 12/12/18 16:00 97.8 81 18 122/61 (81) 98 12/12/18 15:39 98.2 65 18 116/58 100 Trach Collar 2.0 12/12/18 15:07 98.2 65 18 116/58 100 Trach Collar 2.0 12/12/18 14:31 61 24 117/52 95 Trach Collar 2.0 12/12/18 12:16 98.2 81 18 132/79 (96) 100 Trach Collar 2.0 Intake and Output 12/13/18 12/14/18 19:00 07:00 Intake Total 25 ml 675 ml Output Total 100 ml Balance 25 ml 575 ml Intake Free Water 300 ml Tube Feeding 25 ml 375 ml Output Urine Total 100 ml # Voids 2 # Bowel Movements 1 Labs Test 12/12/18 13:00 12/12/18 13:38 12/12/18 17:50 12/13/18 06:02 White Blood Count 10.4 K/UL (4.8-10.8) 9.3 K/UL (4.8-10.8) Red Blood Count 2.88 M/UL (4.20-5.40) 3.33 M/UL (4.20-5.40) Hemoglobin 8.1 G/DL (12.0-16.0) 9.4 G/DL (12.0-16.0) Hematocrit 25.8 % (37.0-47.0) 30.0 % (37.0-47.0) Mean Corpuscular Volume 90 FL (80-99) 90 FL (80-99) Mean Corpuscular Hemoglobin 28.0 PG (27.0-31.0) 28.2 PG (27.0-31.0) Mean Corpuscular Hemoglobin Concent 31.2 G/DL (32.0-36.0) 31.3 G/DL (32.0-36.0) Red Cell Distribution Width 13.7 % (11.6-14.8) 13.8 % (11.6-14.8) Platelet Count 317 K/UL (150-450) 318 K/UL (150-450) Mean Platelet Volume 5.4 FL (6.5-10.1) 5.2 FL (6.5-10.1) Neutrophils (%) (Auto) 67.6 % (45.0-75.0) 66.8 % (45.0-75.0) Lymphocytes (%) (Auto) 25.3 % (20.0-45.0) 24.4 % (20.0-45.0) Monocytes (%) (Auto) 5.2 % (1.0-10.0) 5.5 % (1.0-10.0) Eosinophils (%) (Auto) 1.3 % (0.0-3.0) 2.5 % (0.0-3.0) Basophils (%) (Auto) 0.6 % (0.0-2.0) 0.7 % (0.0-2.0) Differential Total Cells Counted 100 Neutrophils % (Manual) 71 % (45-75) Lymphocytes % (Manual) 22 % (20-45) Monocytes % (Manual) 6 % (1-10) Eosinophils % (Manual) 0 % (0-3) Basophils % (Manual) 0 % (0-2) Band Neutrophils 1 % (0-8) Platelet Estimate Adequate Platelet Morphology Normal Hypochromasia 1+ Erythrocyte Sedimentation Rate 130 MM/HR (0-30) Reticulocyte Count 1.9 % (0.5-2.0) Prothrombin Time 9.6 SEC (9.30-11.50) Prothromb Time International Ratio 0.9 (0.9-1.1) Activated Partial Thromboplast Time 30 SEC (23-33) Sodium Level 142 MMOL/L (136-145) 141 MMOL/L (136-145) Potassium Level 4.8 MMOL/L (3.5-5.1) 4.9 MMOL/L (3.5-5.1) Chloride Level 102 MMOL/L (98-107) 100 MMOL/L (98-107) Carbon Dioxide Level 32 MMOL/L (21-32) 30 MMOL/L (21-32) Anion Gap 8 mmol/L (5-15) 12 mmol/L (5-15) Blood Urea Nitrogen 32 mg/dL (7-18) 32 mg/dL (7-18) Creatinine 1.1 MG/DL (0.55-1.30) 1.1 MG/DL (0.55-1.30) Estimat Glomerular Filtration Rate mL/min (>60) mL/min (>60) Glucose Level 112 MG/DL (74-106) 93 MG/DL (74-106) Calcium Level 9.7 MG/DL (8.5-10.1) 10.6 MG/DL (8.5-10.1) Iron Level 54 ug/dL (50-175) Total Iron Binding Capacity 192 ug/dL (250-450) Percent Iron Saturation 28 % (15-50) Unsaturated Iron Binding 138 ug/dL (112-346) Total Bilirubin 0.3 MG/DL (0.2-1.0) 0.3 MG/DL (0.2-1.0) Aspartate Amino Transf (AST/SGOT) 176 U/L (15-37) 122 U/L (15-37) Alanine Aminotransferase (ALT/SGPT) 308 U/L (12-78) 275 U/L (12-78) Alkaline Phosphatase 488 U/L (46-116) 492 U/L (46-116) Lactate Dehydrogenase 326 U/L (81-234) Total Protein 9.1 G/DL (6.4-8.2) 9.8 G/DL (6.4-8.2) Albumin 2.7 G/DL (3.4-5.0) 2.9 G/DL (3.4-5.0) Globulin 6.4 g/dL 6.9 g/dL Albumin/Globulin Ratio 0.4 (1.0-2.7) 0.4 (1.0-2.7) Carcinoembryonic Antigen 4.8 ng/mL (0.0-4.7) Vitamin B12 Level 1860 PG/ML (193-986) Folate 61.7 NG/ML (8.6-58.9) Lactic Acid Level 0.70 mmol/L (0.4-2.0) Pro-B-Type Natriuretic Peptide 129 pg/mL (0-125) Triglycerides Level 166 MG/DL (30-150) Cholesterol Level 207 MG/DL (< 200) LDL Cholesterol 102 mg/dL (<100) HDL Cholesterol 54 MG/DL (40-60) Cholesterol/HDL Ratio 3.8 (3.3-4.4) Thyroid Stimulating Hormone (TSH) 2.905 uiU/mL (0.358-3.740) Test 12/14/18 05:50 White Blood Count 12.2 K/UL (4.8-10.8) Red Blood Count 2.86 M/UL (4.20-5.40) Hemoglobin 8.1 G/DL (12.0-16.0) Hematocrit 25.6 % (37.0-47.0) Mean Corpuscular Volume 90 FL (80-99) Mean Corpuscular Hemoglobin 28.2 PG (27.0-31.0) Mean Corpuscular Hemoglobin Concent 31.4 G/DL (32.0-36.0) Red Cell Distribution Width 13.4 % (11.6-14.8) Platelet Count 358 K/UL (150-450) Mean Platelet Volume 4.8 FL (6.5-10.1) Neutrophils (%) (Auto) 64.5 % (45.0-75.0) Lymphocytes (%) (Auto) 26.6 % (20.0-45.0) Monocytes (%) (Auto) 5.0 % (1.0-10.0) Eosinophils (%) (Auto) 3.3 % (0.0-3.0) Basophils (%) (Auto) 0.6 % (0.0-2.0) Sodium Level 141 MMOL/L (136-145) Potassium Level 4.5 MMOL/L (3.5-5.1) Chloride Level 100 MMOL/L (98-107) Carbon Dioxide Level 31 MMOL/L (21-32) Anion Gap 10 mmol/L (5-15) Blood Urea Nitrogen 37 mg/dL (7-18) Creatinine 1.3 MG/DL (0.55-1.30) Estimat Glomerular Filtration Rate mL/min (>60) Glucose Level 150 MG/DL (74-106) Calcium Level 10.2 MG/DL (8.5-10.1) Total Bilirubin 0.2 MG/DL (0.2-1.0) Aspartate Amino Transf (AST/SGOT) 54 U/L (15-37) Alanine Aminotransferase (ALT/SGPT) 188 U/L (12-78) Alkaline Phosphatase 455 U/L (46-116) Total Protein 9.1 G/DL (6.4-8.2) Albumin 2.7 G/DL (3.4-5.0) Globulin 6.4 g/dL Albumin/Globulin Ratio 0.4 (1.0-2.7) Height (Feet): 5 Height (Inches): 4.00 Weight (Pounds): 150 Objective Physical Exam: Vitals: reviewed General Appearance: NAD HEENT: normocephalic, atraumatic ++ trach 6l Neck: non-tender, normal alignment Respiratory/Chest: normal breath sounds bilaterally Cardiovascular/Chest: normal peripheral pulses, normal rate Abdomen: normal bowel sounds, soft, nontender Extremities: normal range of motion Chris Orantes MD Dec 14, 2018 10:16
[2018-12-14] MEDS: Cefepime HCl 1 GM in D5W 55 ML IVPB SCH (11:51)
[2018-12-14 12:00] VITALS: BP 125/65
[2018-12-14] MEDS ORDERED: Piperacillin/Tazobactam 3.375 GM in NS 110 ML IVPB SCH (14:00)
[2018-12-14] MEDS: Vancomycin 1gm in D5W 275ml IVPB SCH (15:53)
[2018-12-14 16:00] VITALS: BP 133/62
[2018-12-14 20:00] VITALS: BP 148/72
[2018-12-14] MEDS ORDERED: Tubing IV Secondary IV ONE (20:30)
[2018-12-14] MEDS ORDERED: NS 275ml ONE (20:30)
[2018-12-15] VITALS: BP 140/70
--- NOTE | 2018-12-15 00:50 | Diagnostic Imaging Report ---
Indication: Dyspnea Comparison: 12/14/2018 A single view chest radiograph was obtained. Findings: Accounting for differences in technique there is probably little to no change. There is prominence of the interstitium within the lungs bilaterally. Heart size remains normal. Tracheostomy noted. IMPRESSION: No change advisor the last day. Mild interstitial edema not excluded
[2018-12-15 04:00] VITALS: BP 113/58
--- NOTE | 2018-12-15 06:28 | Hematology/Onc Progress Note ---
Assessment/Plan Assessment/Plan Assessment and Recs: # Anemia of chronic disease due to underlying chronic medical issues, multifactorial --> Anemia workup has been reviewed and elev ferritin and low sat % --> No evidence of hemolysis is noted, peripheral smear has been reviewed. --> Hgb goal >7. Transfuse prn. --> Epogen or iron at this time is not particularly indicated --> Medications have been reviewed --> low threshold for gi evaluation in case has occult + --> bone marrow biopsy is not indicated given the other more likely causes # HYpercalcemia with elev Ca++ on admission 01-09 --> give ivf have been started --> potentially due to dehydration --> pamidronate if doesn't correct --> trend 10.6-->10.2 # Transaminitis - may be related to meds v fluid overload --> diuresis as needed, lasix given --> ast/alt better # GP bacteremia, bilateral interstitial edema --> diuresis and abx prn --> cefepime/vanc # Respiratory failure s/p trach --> per pilm # Dyshpagia s/p gtube --> per gi # Dvt ppx scds The timing of this note does not necessarily reflect the time of the patient was seen. Greatly appreciate consultation. Subjective Constitutional: Denies: no symptoms, chills, fever, malaise, weakness, other HEENT: Denies: no symptoms, eye pain, blurred vision, tearing, double vision, ear pain, ear discharge, nose pain, nose congestion, throat pain, throat swelling, mouth pain, mouth swelling, other Respiratory: Denies: no symptoms, cough, shortness of breath, SOB with excertion, SOB at rest, sputum, wheezing, other Genitourinary: Denies: no symptoms, burning, discharge, frequency, flank pain, hematuria, incontinence, pain, urgency, other Neurologic/Psychiatric: Denies: no symptoms, anxiety, depressed, emotional problems, headache, numbness, paresthesia, pre-existing deficit, seizure, tingling, tremors, weakness, other Endocrine: Denies: no symptoms, excessive sweating, flushing, intolerance to cold, intolerance to heat, increased hunger, increased thirst, increased urine, unexplained weight gain, unexplained weight loss, other Hematologic/Lymphatic: Denies: no symptoms, anemia, easy bleeding, easy bruising, adenopathy, other Allergies: Coded Allergies: CODEINE (Verified Allergy, Unknown, HIVES, 09/15/09) Subjective 12/14: nonverbal, daughter by bedside, anemia panel reviewed, no bleeding chills 12/15: some emesis noted overnight, ojse rn, have orderd occult blood Objective Objective Current Medications Medications (Trade) Dose Ordered Sig/Maicol Route PRN Reason Start Time Stop Time Status Last Admin Dose Admin Acetaminophen (Tylenol) 650 mg Q4H PRN GT fever 12/13/18 01:45 01/12/19 01:44 Albuterol/ Ipratropium (Albuterol/ Ipratropium) 3 ml Q4H PRN HHN Shortness of Breath 12/14/18 09:45 12/19/18 09:44 12/14/18 23:56 Albuterol/ Ipratropium (Albuterol/ Ipratropium) 3 ml TIDRT HHN 12/14/18 08:00 12/19/18 07:59 12/14/18 20:08 Amlodipine Besylate (Norvasc) 5 mg DAILY GT 12/15/18 09:00 01/12/19 10:59 Cefepime HCl 1 gm/ Dextrose 55 ml @ 110 mls/hr Q24H IVPB 12/14/18 12:00 12/21/18 11:59 12/14/18 11:51 Dextrose (Dextrose 50%) 25 ml Q30MIN PRN IV Hypoglycemia 12/12/18 14:00 01/11/19 13:59 Dextrose (Dextrose 50%) 50 ml Q30MIN PRN IV Hypoglycemia 12/12/18 14:00 01/11/19 13:59 Famotidine (Pepcid) 20 mg DAILY GT 12/13/18 09:00 01/12/19 08:59 12/14/18 08:35 Levetiracetam (Keppra) 1,000 mg BID GT 12/13/18 09:00 01/12/19 08:59 12/14/18 17:22 Lorazepam (Ativan 2mg/ml 1ml) 0.5 mg Q4H PRN IV For Anxiety 12/12/18 14:00 12/19/18 13:59 Ondansetron HCl (Zofran) 4 mg Q6H PRN IVP Nausea & Vomiting 12/12/18 14:00 01/11/19 13:59 12/14/18 23:26 Polyethylene Glycol (Miralax) 17 gm HSPRN PRN GT Constipation 12/13/18 01:45 01/11/19 13:59 Vancomycin HCl (Vanco rx to dose) 1 ea DAILY PRN MISC Per rx protocol 12/13/18 14:45 01/12/19 14:44 Vancomycin HCl 1 gm/Dextrose 275 ml @ 183.708 mls/hr Q24H IVPB 12/13/18 16:00 12/18/18 15:59 12/14/18 15:53 Zolpidem Tartrate (Ambien) 5 mg HSPRN PRN GT Insomnia 12/13/18 01:45 12/19/18 13:59 Last 24 Hour Vital Signs Date Time Temp Pulse Resp B/P (MAP) Pulse Ox O2 Delivery O2 Flow Rate FiO2 12/15/18 04:00 6.0 28 12/15/18 04:00 97.3 80 18 113/58 (76) 98 12/15/18 04:00 78 12/15/18 01:30 100 T-Piece 8.0 30 12/15/18 00:00 101 12/15/18 00:00 98.2 89 18 140/70 (93) 97 12/14/18 21:00 Trach Collar 6.0 12/14/18 20:08 100 T-Piece 8.0 30 12/14/18 20:08 97 20 100 T-Piece 92 20 100 12/14/18 20:00 97.9 96 18 148/72 (97) 100 12/14/18 20:00 6.0 28 12/14/18 20:00 95 12/14/18 16:00 97.8 98 25 133/62 (85) 99 12/14/18 16:00 6.0 28 12/14/18 16:00 99 12/14/18 13:23 96 T-Piece 8.0 30 12/14/18 13:23 84 20 98 T-Piece 10.0 35 80 20 97 12/14/18 12:00 6.0 28 12/14/18 12:00 88 12/14/18 12:00 97.9 97 25 125/65 (85) 100 12/14/18 09:00 Trach Collar 6.0 12/14/18 08:40 88 116/57 12/14/18 08:29 101 20 96 T-Piece 10.0 35 100 20 93 12/14/18 08:00 97.7 88 25 116/57 (76) 99 12/14/18 08:00 89 12/14/18 08:00 6.0 28 12/14/18 07:15 95 T-Piece 8.0 30 12/14/18 04:00 99.5 72 21 131/59 (83) 99 12/14/18 04:00 89 12/14/18 04:00 6.0 28 12/14/18 00:36 96 T-Piece 8.0 30 12/14/18 00:00 98.5 88 20 121/51 (74) 92 12/14/18 00:00 89 12/14/18 00:00 6.0 28 12/13/18 21:00 Trach Collar 6.0 12/13/18 20:00 6.0 28 12/13/18 20:00 80 12/13/18 20:00 98.2 94 21 124/76 (92) 96 12/13/18 19:59 98 T-Piece 6.0 28 12/13/18 16:00 97.4 89 22 116/75 (89) 96 12/13/18 16:00 84 12/13/18 16:00 6.0 28 12/13/18 13:45 97 T-Piece 6.0 28 12/13/18 12:00 81 12/13/18 12:00 6.0 28 12/13/18 12:00 98.1 80 22 133/63 (86) 97 12/13/18 11:01 85 150/67 12/13/18 09:00 Trach Collar 6.0 12/13/18 08:00 85 12/13/18 08:00 6.0 28 12/13/18 08:00 98.2 87 24 149/67 (94) 98 12/13/18 07:54 98 T-Piece 6.0 28 Intake and Output 12/14/18 12/15/18 19:00 07:00 Intake Total 30 ml 240 ml Output Total 300 ml Balance 30 ml -60 ml Intake Free Water 100 ml Tube Feeding 30 ml 140 ml Output Urine Total 300 ml # Voids 1 # Bowel Movements 2 1 Labs Test 12/12/18 13:00 12/12/18 13:38 12/12/18 17:50 12/13/18 06:02 White Blood Count 10.4 K/UL (4.8-10.8) 9.3 K/UL (4.8-10.8) Red Blood Count 2.88 M/UL (4.20-5.40) 3.33 M/UL (4.20-5.40) Hemoglobin 8.1 G/DL (12.0-16.0) 9.4 G/DL (12.0-16.0) Hematocrit 25.8 % (37.0-47.0) 30.0 % (37.0-47.0) Mean Corpuscular Volume 90 FL (80-99) 90 FL (80-99) Mean Corpuscular Hemoglobin 28.0 PG (27.0-31.0) 28.2 PG (27.0-31.0) Mean Corpuscular Hemoglobin Concent 31.2 G/DL (32.0-36.0) 31.3 G/DL (32.0-36.0) Red Cell Distribution Width 13.7 % (11.6-14.8) 13.8 % (11.6-14.8) Platelet Count 317 K/UL (150-450) 318 K/UL (150-450) Mean Platelet Volume 5.4 FL (6.5-10.1) 5.2 FL (6.5-10.1) Neutrophils (%) (Auto) 67.6 % (45.0-75.0) 66.8 % (45.0-75.0) Lymphocytes (%) (Auto) 25.3 % (20.0-45.0) 24.4 % (20.0-45.0) Monocytes (%) (Auto) 5.2 % (1.0-10.0) 5.5 % (1.0-10.0) Eosinophils (%) (Auto) 1.3 % (0.0-3.0) 2.5 % (0.0-3.0) Basophils (%) (Auto) 0.6 % (0.0-2.0) 0.7 % (0.0-2.0) Differential Total Cells Counted 100 Neutrophils % (Manual) 71 % (45-75) Lymphocytes % (Manual) 22 % (20-45) Monocytes % (Manual) 6 % (1-10) Eosinophils % (Manual) 0 % (0-3) Basophils % (Manual) 0 % (0-2) Band Neutrophils 1 % (0-8) Platelet Estimate Adequate Platelet Morphology Normal Hypochromasia 1+ Erythrocyte Sedimentation Rate 130 MM/HR (0-30) Reticulocyte Count 1.9 % (0.5-2.0) Prothrombin Time 9.6 SEC (9.30-11.50) Prothromb Time International Ratio 0.9 (0.9-1.1) Activated Partial Thromboplast Time 30 SEC (23-33) Sodium Level 142 MMOL/L (136-145) 141 MMOL/L (136-145) Potassium Level 4.8 MMOL/L (3.5-5.1) 4.9 MMOL/L (3.5-5.1) Chloride Level 102 MMOL/L (98-107) 100 MMOL/L (98-107) Carbon Dioxide Level 32 MMOL/L (21-32) 30 MMOL/L (21-32) Anion Gap 8 mmol/L (5-15) 12 mmol/L (5-15) Blood Urea Nitrogen 32 mg/dL (7-18) 32 mg/dL (7-18) Creatinine 1.1 MG/DL (0.55-1.30) 1.1 MG/DL (0.55-1.30) Estimat Glomerular Filtration Rate mL/min (>60) mL/min (>60) Glucose Level 112 MG/DL (74-106) 93 MG/DL (74-106) Calcium Level 9.7 MG/DL (8.5-10.1) 10.6 MG/DL (8.5-10.1) Iron Level 54 ug/dL (50-175) Total Iron Binding Capacity 192 ug/dL (250-450) Percent Iron Saturation 28 % (15-50) Unsaturated Iron Binding 138 ug/dL (112-346) Total Bilirubin 0.3 MG/DL (0.2-1.0) 0.3 MG/DL (0.2-1.0) Aspartate Amino Transf (AST/SGOT) 176 U/L (15-37) 122 U/L (15-37) Alanine Aminotransferase (ALT/SGPT) 308 U/L (12-78) 275 U/L (12-78) Alkaline Phosphatase 488 U/L (46-116) 492 U/L (46-116) Lactate Dehydrogenase 326 U/L (81-234) Total Protein 9.1 G/DL (6.4-8.2) 9.8 G/DL (6.4-8.2) Albumin 2.7 G/DL (3.4-5.0) 2.9 G/DL (3.4-5.0) Globulin 6.4 g/dL 6.9 g/dL Albumin/Globulin Ratio 0.4 (1.0-2.7) 0.4 (1.0-2.7) Carcinoembryonic Antigen 4.8 ng/mL (0.0-4.7) Vitamin B12 Level 1860 PG/ML (193-986) Folate 61.7 NG/ML (8.6-58.9) Lactic Acid Level 0.70 mmol/L (0.4-2.0) Pro-B-Type Natriuretic Peptide 129 pg/mL (0-125) Triglycerides Level 166 MG/DL (30-150) Cholesterol Level 207 MG/DL (< 200) LDL Cholesterol 102 mg/dL (<100) HDL Cholesterol 54 MG/DL (40-60) Cholesterol/HDL Ratio 3.8 (3.3-4.4) Thyroid Stimulating Hormone (TSH) 2.905 uiU/mL (0.358-3.740) Test 12/14/18 05:50 12/14/18 06:00 White Blood Count 12.2 K/UL (4.8-10.8) Red Blood Count 2.86 M/UL (4.20-5.40) Hemoglobin 8.1 G/DL (12.0-16.0) Hematocrit 25.6 % (37.0-47.0) Mean Corpuscular Volume 90 FL (80-99) Mean Corpuscular Hemoglobin 28.2 PG (27.0-31.0) Mean Corpuscular Hemoglobin Concent 31.4 G/DL (32.0-36.0) Red Cell Distribution Width 13.4 % (11.6-14.8) Platelet Count 358 K/UL (150-450) Mean Platelet Volume 4.8 FL (6.5-10.1) Neutrophils (%) (Auto) 64.5 % (45.0-75.0) Lymphocytes (%) (Auto) 26.6 % (20.0-45.0) Monocytes (%) (Auto) 5.0 % (1.0-10.0) Eosinophils (%) (Auto) 3.3 % (0.0-3.0) Basophils (%) (Auto) 0.6 % (0.0-2.0) Sodium Level 141 MMOL/L (136-145) Potassium Level 4.5 MMOL/L (3.5-5.1) Chloride Level 100 MMOL/L (98-107) Carbon Dioxide Level 31 MMOL/L (21-32) Anion Gap 10 mmol/L (5-15) Blood Urea Nitrogen 37 mg/dL (7-18) Creatinine 1.3 MG/DL (0.55-1.30) Estimat Glomerular Filtration Rate mL/min (>60) Glucose Level 150 MG/DL (74-106) Calcium Level 10.2 MG/DL (8.5-10.1) Total Bilirubin 0.2 MG/DL (0.2-1.0) Aspartate Amino Transf (AST/SGOT) 54 U/L (15-37) Alanine Aminotransferase (ALT/SGPT) 188 U/L (12-78) Alkaline Phosphatase 455 U/L (46-116) Total Protein 9.1 G/DL (6.4-8.2) Albumin 2.7 G/DL (3.4-5.0) Globulin 6.4 g/dL Albumin/Globulin Ratio 0.4 (1.0-2.7) Micro Microbiology Date/Time Source Procedure Growth Status 12/14/18 20:11 Sputum Gram Stain - Final Resulted 12/14/18 20:11 Sputum Sputum Culture Pending Resulted Height (Feet): 5 Height (Inches): 4.00 Weight (Pounds): 150 Objective Physical Exam: Vitals: reviewed General Appearance: NAD HEENT: normocephalic, atraumatic ++ trach 6l Neck: non-tender, normal alignment Respiratory/Chest: normal breath sounds bilaterally Cardiovascular/Chest: normal peripheral pulses, normal rate Abdomen: normal bowel sounds, soft, nontender + peg Extremities: normal range of motion Chris Orantes MD Dec 15, 2018 06:28
[2018-12-15 07:25] LABS: BLOOD UREA NITROGEN 39 mg/dL (7-18); CALCIUM 9.8 MG/DL (8.5-10.1); CHLORIDE 101 MMOL/L (98-107); CREATININE 1.3 MG/DL (0.55-1.30); POTASSIUM 4.4 MMOL/L (3.5-5.1); SODIUM 140 MMOL/L (136-145)
[2018-12-15 07:28] LABS: BASOPHILS % (AUTO) 0.7 % (0.0-2.0); EOSINOPHILS % (AUTO) 2.5 % (0.0-3.0); HEMATOCRIT 26.1 % (37.0-47.0); HEMOGLOBIN 8.3 G/DL (12.0-16.0); LYMPHOCYTES % (AUTO) 29.8 % (20.0-45.0); MEAN CORPUSCULAR VOLUME 89 FL (80-99); MONOCYTES % (AUTO) 6.9 % (1.0-10.0); NEUTROPHILS % (AUTO) 60.1 % (45.0-75.0); PLATELET COUNT 315 K/UL (150-450); RED BLOOD COUNT 2.92 M/UL (4.20-5.40); RED CELL DISTRIBUTION WIDTH 13.2 % (11.6-14.8); WHITE BLOOD COUNT 10.6 K/UL (4.8-10.8)
[2018-12-15 07:43] LABS: CARBON DIOXIDE 32 MMOL/L (21-32)
[2018-12-15 08:00] VITALS: BP_SYST 122; BP_SYST 93; BP_DIAS 47; BP_DIAS 64
--- NOTE | 2018-12-15 08:44 | Cardiology Report ---
APPROVED REPORT EXAM: Two-dimensional and M-mode echocardiogram with Doppler and color Doppler. INDICATION Left ventricular function M-Mode DIMENSIONS IVSd1.4 (0.7-1.1cm)Left Atrium (MM)3.4 (1.6-4.0cm) LVDd4.0 (3.5-5.6cm)Aortic Root2.7 (2.0-3.7cm) PWd0.9 (0.7-1.1cm)Aortic Cusp Exc.1.5 (1.5-2.0cm) LVDs2.0 (2.5-4.0cm) PWs1.4 cm Technically difficult study due to contracted patient. Study quality precludes accurate assessment of regional wall motion. Normal left ventricular chamber size, systolic function and wall motion. Left ventricular ejection fraction estimated to be 60 %. Mild left ventricular hypertrophy. Anterior Echo-free space, may be due to pericardial fat or effusion. All other cardiac chamber sizes are within normal limits. Focal aortic valve sclerosis with adequate cusp excursion. Thickened mitral valve leaflets with normal excursion. Mild mitral annulus and aortic root calcification. Pulmonic valve not well visualized. Normal tricuspid valve structure. Subcostal views not obtainable. A color flow and spectral Doppler study was performed and revealed: No aortic regurgitation. No mitral regurgitation. Mitral diastolic velocities suggest mild left ventricular diastolic dysfunction (Grade I). Trace tricuspid regurgitation. Tricuspid systolic velocities suggests peak right ventricular systolic pressure of 37 mmHg, consistent with mild pulmonary hypertension. Trace pulmonic regurgitation present.
[2018-12-15] MEDS: levETIRAcetam 500mg/5ml Liquid GT SCH ×2 (09:05→17:06)
--- NOTE | 2018-12-15 09:58 | General Progress Note ---
Assessment/Plan Problem List: (1) Respiratory failure ICD Codes: J96.90 - Respiratory failure, unspecified, unspecified whether with hypoxia or hypercapnia SNOMED: 192007651 (2) HTN (hypertension) ICD Codes: I10 - Essential (primary) hypertension SNOMED: 41325311 (3) Leukocytosis ICD Codes: D72.829 - Elevated white blood cell count, unspecified SNOMED: 420041781, 568597917 (4) Anemia ICD Codes: D64.9 - Anemia, unspecified SNOMED: 594464182, 166924334 Qualifiers: Qualified Codes: D64.9 - Anemia, unspecified Status: stable, progressing Assessment/Plan: o2 pulm tx abx prn transfuse prn cbc bmp am dc plan if clear by heme and id Subjective Constitutional: Reports: weakness Allergies: Coded Allergies: CODEINE (Verified Allergy, Unknown, HIVES, 09/15/09) All Systems: reviewed and negative except above Subjective trach aerosol asleep Objective Last 24 Hour Vital Signs Date Time Temp Pulse Resp B/P (MAP) Pulse Ox O2 Delivery O2 Flow Rate FiO2 12/15/18 09:50 84 122/64 12/15/18 08:06 87 20 98 T-Piece 8.0 30 83 20 97 12/15/18 08:06 97 T-Piece 8.0 30 12/15/18 08:00 97.2 84 20 122/64 (83) 97 12/15/18 08:00 79 12/15/18 04:00 6.0 28 12/15/18 04:00 97.3 80 18 113/58 (76) 98 12/15/18 04:00 78 12/15/18 01:30 100 T-Piece 8.0 30 12/15/18 00:00 101 12/15/18 00:00 98.2 89 18 140/70 (93) 97 12/14/18 21:00 Trach Collar 6.0 12/14/18 20:08 100 T-Piece 8.0 30 12/14/18 20:08 97 20 100 T-Piece 92 20 100 12/14/18 20:00 97.9 96 18 148/72 (97) 100 12/14/18 20:00 6.0 28 12/14/18 20:00 95 12/14/18 16:00 97.8 98 25 133/62 (85) 99 12/14/18 16:00 6.0 28 12/14/18 16:00 99 12/14/18 13:23 96 T-Piece 8.0 30 12/14/18 13:23 84 20 98 T-Piece 10.0 35 80 20 97 12/14/18 12:00 6.0 28 12/14/18 12:00 88 12/14/18 12:00 97.9 97 25 125/65 (85) 100 Intake and Output 12/14/18 12/15/18 19:00 07:00 Intake Total 30 ml 240 ml Output Total 300 ml Balance 30 ml -60 ml Intake Free Water 100 ml Tube Feeding 30 ml 140 ml Output Urine Total 300 ml # Voids 1 # Bowel Movements 2 1 Laboratory Tests 12/15/18 06:20: White Blood Count 10.6, Red Blood Count 2.92L, Hemoglobin 8.3L, Hematocrit 26.1L , Mean Corpuscular Volume 89, Mean Corpuscular Hemoglobin 28.4, Mean Corpuscular Hemoglobin Concent 31.9L, Red Cell Distribution Width 13.2, Platelet Count 315, Mean Platelet Volume 5.2L, Neutrophils (%) (Auto) 60.1, Lymphocytes (%) (Auto) 29.8, Monocytes (%) (Auto) 6.9, Eosinophils (%) (Auto) 2.5, Basophils (%) (Auto) 0.7, Sodium Level 140, Potassium Level 4.4, Chloride Level 101, Carbon Dioxide Level 32, Blood Urea Nitrogen 39H, Creatinine 1.3, Estimat Glomerular Filtration Rate , Glucose Level 99, Calcium Level 9.8 Height (Feet): 5 Height (Inches): 4.00 Weight (Pounds): 150 General Appearance: lethargic EENT: normal ENT inspection Neck: normal alignment Cardiovascular: normal peripheral pulses, normal rate, regular rhythm Respiratory/Chest: chest wall non-tender, lungs clear, normal breath sounds Abdomen: normal bowel sounds, non tender, soft Extremities: normal inspection Edema: no edema noted Arm (L), no edema noted Arm (R), no edema noted Leg (L), no edema noted Leg (R), no edema noted Pedal (L), no edema noted Pedal (R), no edema noted Generalized Neurologic: responsive, motor weakness Skin: normal pigmentation, warm/dry Willis,Dustin Chi-Keysha DO Dec 15, 2018 09:58
--- NOTE | 2018-12-15 10:41 | Diagnostic Imaging Report ---
Indication: Abdominal pain Technique: Grayscale and duplex Doppler imaging of the abdomen performed. Comparison: None Findings: Evaluation is limited somewhat by body habitus. The liver is unremarkable. Doppler interrogation of the main portal vein shows patency with hepatopedal, monophasic flow. There is no biliary ductal dilatation identified. Gallbladder is unremarkable. There demonstrated part of the pancreas, aorta and IVC show no definite abnormalities. There are bilateral renal cysts. The left kidney there is a 3.4 cm cyst. On the right there is a 1 cm cyst. There is no hydronephrosis. IMPRESSION: No acute findings identified. Bilateral renal cysts
--- NOTE | 2018-12-15 11:28 | Consultation ---
History of Present Illness General Date patient seen: Dec 15, 2018 Chief Complaint: Abnormal Labs Referring physician: Dr Willis Reason for Consultation: chronic respiratory failure, tracheostomy status Present Illness HPI Ms. Horton is an 83 yo female PHMx CVA s/p Trach and Peg, Not verbal, CHF, HTN, Hypothyroid, Alzheimer dementia and Seizures who was sent to the ED from her nursing facility for Anemia. In the ED she was afebrile with no leukcoytosis. In the ED she had blood cultures drawn which grew staph epi. Repeat blood Cx neg. She did have a increase in the WBCs yesteray but thsi has resolved. CXR yesterday showed Reduced lung volumes and interstitial pulmonary opacities. Edema vs pneumonia. But the CXR from today did not show any opacities. She is note to have increased O2 requirement from 2 to 6 L via trach mask. ID was consulted for Possible Sepsis PMHx/PSHx CVA s/p Trach and Peg Not verbal CHF HTN Hypothyroid Alzheimer dementia Seizures SocHx No E/T/D FamHx Unable to obtain as patient trached with Alzheimer dementia Allergies: Coded Allergies: CODEINE (Verified Allergy, Unknown, HIVES, 09/15/09) Medication History Scheduled Amlodipine Besylate* (Amlodipine Besylate*), 10 MG ORAL DAILY, (Reported) Famotidine (Famotidine), 20 MG ORAL DAILY, (Reported) Furosemide* (Lasix*), 20 MG ORAL DAILY, (Reported) Guaifenesin* (Adult Wal-Tussin*), 10 ML ORAL Q4H, (Reported) Heparin Sod (Porcine) (Heparin Sodium*), 5,000 UNITS SUBQ EVERY 12 HOURS, ( Reported) Levetiracetam* (Levetiracetam*), 1,000 MG GT BID, (Reported) Levothyroxine Sodium* (Levothyroxine Sodium*), 50 MCG GT DAILY, (Reported) Metoclopramide Hcl* (Metoclopramide Hcl*), 10 MG ORAL EVERY 6 HOURS, (Reported) Miscellaneous Medications No Known Medications (No Known Medications), (Reported) Papaya (Papaya Enzyme), 1 EACH PO, (Reported) Sodium Carbonate (Sodium Carbonate), 1 GM MC, (Reported) Discontinued Medications Heparin Sodium,Porcine/Pf (Heparin 5 Unit/5 ml (1/ml) Syr), 1 UNIT IV, (Reported ) Discontinued Reason: Pt stopped taking med Levetiracetam In Nacl (Iso-Os) (Levetiraceta-Nacl 1,000 Mg/100), 1,000 MG IV, ( Reported) Discontinued Reason: MD discontinued med Levothyroxine Sodium* (Levothyroxine Sodium*), 50 MCG IV DAILY, (Reported) Discontinued Reason: Pt stopped taking med Patient History Healthcare decision maker Resuscitation status Full Code Advanced Directive on File Review of Systems ROS Narrative Unable to obtain as patient trached with Alzheimer dementia Physical Exam Last 24 Hour Vital Signs Date Time Temp Pulse Resp B/P (MAP) Pulse Ox O2 Delivery O2 Flow Rate FiO2 12/15/18 09:50 84 122/64 12/15/18 09:00 Trach Collar 6.0 12/15/18 08:06 87 20 98 T-Piece 8.0 30 83 20 97 12/15/18 08:06 97 T-Piece 8.0 30 12/15/18 08:00 97.2 84 20 122/64 (83) 97 12/15/18 08:00 6.0 28 12/15/18 08:00 79 12/15/18 04:00 6.0 28 12/15/18 04:00 97.3 80 18 113/58 (76) 98 12/15/18 04:00 78 12/15/18 01:30 100 T-Piece 8.0 30 12/15/18 00:00 101 12/15/18 00:00 98.2 89 18 140/70 (93) 97 12/14/18 21:00 Trach Collar 6.0 12/14/18 20:08 100 T-Piece 8.0 30 12/14/18 20:08 97 20 100 T-Piece 92 20 100 12/14/18 20:00 97.9 96 18 148/72 (97) 100 12/14/18 20:00 6.0 28 12/14/18 20:00 95 12/14/18 16:00 97.8 98 25 133/62 (85) 99 12/14/18 16:00 6.0 28 12/14/18 16:00 99 12/14/18 13:23 96 T-Piece 8.0 30 12/14/18 13:23 84 20 98 T-Piece 10.0 35 80 20 97 12/14/18 12:00 6.0 28 12/14/18 12:00 88 12/14/18 12:00 97.9 97 25 125/65 (85) 100 Intake and Output 12/14/18 12/15/18 19:00 07:00 Intake Total 30 ml 240 ml Output Total 300 ml Balance 30 ml -60 ml Intake Free Water 100 ml Tube Feeding 30 ml 140 ml Output Urine Total 300 ml # Voids 1 # Bowel Movements 2 1 Laboratory Tests Test 12/15/18 06:20 White Blood Count 10.6 K/UL (4.8-10.8) Red Blood Count 2.92 M/UL (4.20-5.40) L Hemoglobin 8.3 G/DL (12.0-16.0) L Hematocrit 26.1 % (37.0-47.0) L Mean Corpuscular Volume 89 FL (80-99) Mean Corpuscular Hemoglobin 28.4 PG (27.0-31.0) Mean Corpuscular Hemoglobin Concent 31.9 G/DL (32.0-36.0) L Red Cell Distribution Width 13.2 % (11.6-14.8) Platelet Count 315 K/UL (150-450) Mean Platelet Volume 5.2 FL (6.5-10.1) L Neutrophils (%) (Auto) 60.1 % (45.0-75.0) Lymphocytes (%) (Auto) 29.8 % (20.0-45.0) Monocytes (%) (Auto) 6.9 % (1.0-10.0) Eosinophils (%) (Auto) 2.5 % (0.0-3.0) Basophils (%) (Auto) 0.7 % (0.0-2.0) Sodium Level 140 MMOL/L (136-145) Potassium Level 4.4 MMOL/L (3.5-5.1) Chloride Level 101 MMOL/L (98-107) Carbon Dioxide Level 32 MMOL/L (21-32) Blood Urea Nitrogen 39 mg/dL (7-18) H Creatinine 1.3 MG/DL (0.55-1.30) Estimat Glomerular Filtration Rate mL/min (>60) Glucose Level 99 MG/DL (74-106) Calcium Level 9.8 MG/DL (8.5-10.1) Microbiology Date/Time Source Procedure Growth Status 12/14/18 20:11 Sputum Gram Stain - Final Resulted 12/14/18 20:11 Sputum Sputum Culture Pending Resulted Height (Feet): 5 Height (Inches): 4.00 Weight (Pounds): 150 Medications Current Medications Medications (Trade) Dose Ordered Sig/Maicol Route PRN Reason Start Time Stop Time Status Last Admin Dose Admin Acetaminophen (Tylenol) 650 mg Q4H PRN GT fever 12/13/18 01:45 01/12/19 01:44 Albuterol/ Ipratropium (Albuterol/ Ipratropium) 3 ml Q4H PRN HHN Shortness of Breath 12/14/18 09:45 12/19/18 09:44 12/14/18 23:56 Albuterol/ Ipratropium (Albuterol/ Ipratropium) 3 ml TIDRT HHN 12/14/18 08:00 12/19/18 07:59 12/14/18 20:08 Amlodipine Besylate (Norvasc) 5 mg DAILY GT 12/15/18 09:00 01/12/19 10:59 12/15/18 09:50 Cefepime HCl 1 gm/ Dextrose 55 ml @ 110 mls/hr Q24H IVPB 12/14/18 12:00 12/21/18 11:59 12/14/18 11:51 Dextrose (Dextrose 50%) 25 ml Q30MIN PRN IV Hypoglycemia 12/12/18 14:00 01/11/19 13:59 Dextrose (Dextrose 50%) 50 ml Q30MIN PRN IV Hypoglycemia 12/12/18 14:00 01/11/19 13:59 Famotidine (Pepcid) 20 mg DAILY GT 12/13/18 09:00 01/12/19 08:59 12/15/18 09:05 Levetiracetam (Keppra) 1,000 mg BID GT 12/13/18 09:00 01/12/19 08:59 12/15/18 09:05 Lorazepam (Ativan 2mg/ml 1ml) 0.5 mg Q4H PRN IV For Anxiety 12/12/18 14:00 12/19/18 13:59 Ondansetron HCl (Zofran) 4 mg Q6H PRN IVP Nausea & Vomiting 12/12/18 14:00 01/11/19 13:59 12/14/18 23:26 Polyethylene Glycol (Miralax) 17 gm HSPRN PRN GT Constipation 12/13/18 01:45 01/11/19 13:59 Vancomycin HCl (Vanco rx to dose) 1 ea DAILY PRN MISC Per rx protocol 12/13/18 14:45 01/12/19 14:44 Vancomycin HCl 1 gm/Dextrose 275 ml @ 183.708 mls/hr Q24H IVPB 12/13/18 16:00 12/18/18 15:59 12/14/18 15:53 Zolpidem Tartrate (Ambien) 5 mg HSPRN PRN GT Insomnia 12/13/18 01:45 12/19/18 13:59 Objective Narrative Gen: NAD, Trached, Not talking or following HEENT: NCAT, MMM, PERRL, No Oral lesion, no scleral icterus NECK: Supple, No LAD, No JVD LUNGS: CTAB, No W/C, No Accessory muscle use CARDS: RRR, S1, S2, No M/R/G, ABD: Soft, NT, ND, No R/G, + BS, No HSM, No Masses : Deferred Ext: C/C/E, Pulses 2+ B/L (DP, Rad): NEURO: A/O x 0, Not verbal SKIN: Warm/dry, No rashes Assessment/Plan Assessment/Plan: 83 yo female PHMx CVA s/p Trach and Peg, Not verbal, CHF, HTN, Hypothyroid, Alzheimer dementia and Seizures who was sent to the ED from her nursing facility for Anemia. Mild Leukocytosis - Resolved Unclear source increased o2 so PNA? Mucus plug vs less likely infection CXR 12/14/18 showed Reduced lung volumes and interstitial pulmonary opacities. Edema vs pneumonia. CXR 12/15/18 did not show any opacities Positive Blood Cx Most likely contaminant Blood Cx 12/12/18 - 2/2 Staph. Epi Blood Cx 12/13/18 - Neg Anemia CVA s/p Trach and Peg Not verbal CHF HTN Hypothyroid Alzheimer dementia Seizures PLAN: - Continue Zosyn #1 - f/u Sputum Cx - Monitor CBC and Temps Thank you for this consult. We will continue to follow the patient during this hospitalization. Constable ,Bg MD Dec 15, 2018 11:28
--- NOTE | 2018-12-15 11:40 | Pulmonology Progress Note ---
Assessment/Plan Problems: (1) Chronic respiratory failure (2) Anemia (3) Intractable nausea and vomiting (4) Leukocytosis (5) Chronic vegetative state (6) Feeding by G-tube (7) Feeding by G-tube (8) HTN (hypertension) (9) Limited mobility Assessment/Plan iv fluids anemia w/u in progress respiratory treatment f/u GI recommendations check sputum awaiting ID recommendations regarding abx Subjective ROS Limited/Unobtainable: No Constitutional: Reports: no symptoms Respiratory: Reports: no symptoms Cardiovascular: Reports: no symptoms Gastrointestinal/Abdominal: Reports: no symptoms Allergies: Coded Allergies: CODEINE (Verified Allergy, Unknown, HIVES, 09/15/09) Objective Last 24 Hour Vital Signs Date Time Temp Pulse Resp B/P (MAP) Pulse Ox O2 Delivery O2 Flow Rate FiO2 12/15/18 09:50 84 122/64 12/15/18 09:00 Trach Collar 6.0 12/15/18 08:06 87 20 98 T-Piece 8.0 30 83 20 97 12/15/18 08:06 97 T-Piece 8.0 30 12/15/18 08:00 97.2 84 20 122/64 (83) 97 12/15/18 08:00 6.0 28 12/15/18 08:00 79 12/15/18 04:00 6.0 28 12/15/18 04:00 97.3 80 18 113/58 (76) 98 12/15/18 04:00 78 12/15/18 01:30 100 T-Piece 8.0 30 12/15/18 00:00 101 12/15/18 00:00 98.2 89 18 140/70 (93) 97 12/14/18 21:00 Trach Collar 6.0 12/14/18 20:08 100 T-Piece 8.0 30 12/14/18 20:08 97 20 100 T-Piece 92 20 100 12/14/18 20:00 97.9 96 18 148/72 (97) 100 12/14/18 20:00 6.0 28 12/14/18 20:00 95 12/14/18 16:00 97.8 98 25 133/62 (85) 99 12/14/18 16:00 6.0 28 12/14/18 16:00 99 12/14/18 13:23 96 T-Piece 8.0 30 12/14/18 13:23 84 20 98 T-Piece 10.0 35 80 20 97 12/14/18 12:00 6.0 28 12/14/18 12:00 88 12/14/18 12:00 97.9 97 25 125/65 (85) 100 Intake and Output 12/14/18 12/15/18 19:00 07:00 Intake Total 30 ml 240 ml Output Total 300 ml Balance 30 ml -60 ml Intake Free Water 100 ml Tube Feeding 30 ml 140 ml Output Urine Total 300 ml # Voids 1 # Bowel Movements 2 1 General Appearance: WD/WN HEENT: normocephalic, atraumatic Respiratory/Chest: chest wall non-tender, lungs clear Breasts: no masses Cardiovascular: normal peripheral pulses Abdomen: normal bowel sounds, soft, non tender Genitourinary: normal external genitalia Microbiology Date/Time Source Procedure Growth Status 12/13/18 16:35 Blood Blood Culture - Preliminary NO GROWTH AFTER 24 HOURS Resulted 12/13/18 16:30 Blood Blood Culture - Preliminary NO GROWTH AFTER 24 HOURS Resulted 12/12/18 13:30 Blood Blood Culture - Final Staphylococcus Epidermidis Complete 12/12/18 13:15 Blood Blood Culture - Final Staphylococcus Epidermidis Complete 12/14/18 20:11 Sputum Gram Stain - Final Resulted 12/14/18 20:11 Sputum Sputum Culture Pending Resulted 12/12/18 13:20 Rectum VRE Culture - Final Enterococcus Faecalis - Vre Complete 12/12/18 13:20 Rectum - Final NO CARBAPENEM-RESISTANT ENTEROBACTERI... Complete Laboratory Tests 12/15/18 06:20: White Blood Count 10.6, Red Blood Count 2.92L, Hemoglobin 8.3L, Hematocrit 26.1L , Mean Corpuscular Volume 89, Mean Corpuscular Hemoglobin 28.4, Mean Corpuscular Hemoglobin Concent 31.9L, Red Cell Distribution Width 13.2, Platelet Count 315, Mean Platelet Volume 5.2L, Neutrophils (%) (Auto) 60.1, Lymphocytes (%) (Auto) 29.8, Monocytes (%) (Auto) 6.9, Eosinophils (%) (Auto) 2.5, Basophils (%) (Auto) 0.7, Sodium Level 140, Potassium Level 4.4, Chloride Level 101, Carbon Dioxide Level 32, Blood Urea Nitrogen 39H, Creatinine 1.3, Estimat Glomerular Filtration Rate , Glucose Level 99, Calcium Level 9.8 Current Medications Medications (Trade) Dose Ordered Sig/Maicol Route PRN Reason Start Time Stop Time Status Last Admin Dose Admin Acetaminophen (Tylenol) 650 mg Q4H PRN GT fever 12/13/18 01:45 01/12/19 01:44 Albuterol/ Ipratropium (Albuterol/ Ipratropium) 3 ml Q4H PRN HHN Shortness of Breath 12/14/18 09:45 12/19/18 09:44 12/14/18 23:56 Albuterol/ Ipratropium (Albuterol/ Ipratropium) 3 ml TIDRT HHN 12/14/18 08:00 12/19/18 07:59 12/14/18 20:08 Amlodipine Besylate (Norvasc) 5 mg DAILY GT 12/15/18 09:00 01/12/19 10:59 12/15/18 09:50 Cefepime HCl 1 gm/ Dextrose 55 ml @ 110 mls/hr Q24H IVPB 12/14/18 12:00 12/21/18 11:59 12/14/18 11:51 Dextrose (Dextrose 50%) 25 ml Q30MIN PRN IV Hypoglycemia 12/12/18 14:00 01/11/19 13:59 Dextrose (Dextrose 50%) 50 ml Q30MIN PRN IV Hypoglycemia 12/12/18 14:00 01/11/19 13:59 Famotidine (Pepcid) 20 mg DAILY GT 12/13/18 09:00 01/12/19 08:59 12/15/18 09:05 Levetiracetam (Keppra) 1,000 mg BID GT 12/13/18 09:00 01/12/19 08:59 12/15/18 09:05 Lorazepam (Ativan 2mg/ml 1ml) 0.5 mg Q4H PRN IV For Anxiety 12/12/18 14:00 12/19/18 13:59 Ondansetron HCl (Zofran) 4 mg Q6H PRN IVP Nausea & Vomiting 12/12/18 14:00 01/11/19 13:59 12/14/18 23:26 Polyethylene Glycol (Miralax) 17 gm HSPRN PRN GT Constipation 12/13/18 01:45 01/11/19 13:59 Vancomycin HCl (Vanco rx to dose) 1 ea DAILY PRN MISC Per rx protocol 12/13/18 14:45 01/12/19 14:44 Vancomycin HCl 1 gm/Dextrose 275 ml @ 183.708 mls/hr Q24H IVPB 12/13/18 16:00 12/18/18 15:59 12/14/18 15:53 Zolpidem Tartrate (Ambien) 5 mg HSPRN PRN GT Insomnia 12/13/18 01:45 12/19/18 13:59 Alexa Phipps MD Dec 15, 2018 11:40
[2018-12-15] MEDS: Cefepime HCl 1 GM in D5W 55 ML IVPB SCH (11:57)
[2018-12-15 12:00] VITALS: BP 106/53
[2018-12-15] MEDS: Albuterol/Ipratropium 3ml neb HHN SCH ×2 (13:53→19:33)
[2018-12-15 16:00] VITALS: BP 107/57
[2018-12-15] MEDS: Vancomycin 1gm in D5W 275ml IVPB SCH (16:14)
[2018-12-15] MEDS ORDERED: VANCOMYCIN1 GM/200 M IV (18:49)
[2018-12-15] MEDS ORDERED: CEFEPIME-D1 GM/50 ML IVPB (18:49)
[2018-12-15 20:00] VITALS: BP 131/65
--- NOTE | 2018-12-15 23:18 | Diagnostic Imaging Report ---
APPROVED REPORT CPT Code: 47695 Present Symptoms Comments: Pain BILATERAL: Imaging reveals a patent deep venous system bilaterally. There is no evidence of thrombus within the common femoral, superficial femoral, popliteal or tibial segments. The greater saphenous veins are within normal limits. Doppler indicates normal spontaneous flow within these segments.
[2018-12-16] VITALS: BP 132/62
[2018-12-16 04:00] VITALS: BP 120/69
[2018-12-16 06:46] LABS: ANION GAP 7 mmol/L (5-15); BLOOD UREA NITROGEN 36 mg/dL (7-18); CALCIUM 9.7 MG/DL (8.5-10.1); CARBON DIOXIDE 33 MMOL/L (21-32); CHLORIDE 99 MMOL/L (98-107); CREATININE 1.2 MG/DL (0.55-1.30); POTASSIUM 4.1 MMOL/L (3.5-5.1); SODIUM 139 MMOL/L (136-145)
[2018-12-16 07:24] LABS: EOSINOPHILS % (AUTO) 3.8 % (0.0-3.0); HEMOGLOBIN 9.2 G/DL (12.0-16.0); LYMPHOCYTES % (AUTO) 34.4 % (20.0-45.0); MEAN CORPUSCULAR VOLUME 90 FL (80-99); MONOCYTES % (AUTO) 6.7 % (1.0-10.0); NEUTROPHILS % (AUTO) 54.1 % (45.0-75.0); PLATELET COUNT 312 K/UL (150-450); RED BLOOD COUNT 3.11 M/UL (4.20-5.40); RED CELL DISTRIBUTION WIDTH 12.2 % (11.6-14.8); WHITE BLOOD COUNT 9.2 K/UL (4.8-10.8)
[2018-12-16] MEDS: Albuterol/Ipratropium 3ml neb HHN SCH ×3 (07:32→20:34)
[2018-12-16 08:00] VITALS: BP 113/61
--- NOTE | 2018-12-16 08:40 | Hematology/Onc Progress Note ---
Assessment/Plan Assessment/Plan Assessment and Recs: # Anemia of chronic disease due to underlying chronic medical issues, multifactorial --> Anemia workup has been reviewed and elev ferritin and low sat % --> No evidence of hemolysis is noted, peripheral smear has been reviewed. --> Hgb goal >7. Transfuse prn. --> Epogen or iron at this time is not particularly indicated --> Medications have been reviewed --> low threshold for gi evaluation in case has occult + --> bone marrow biopsy is not indicated given the other more likely causes --> trend 8.1-->8.3-->9.1 # HYpercalcemia with elev Ca++ on admission 01-09 --> give ivf have been started --> potentially due to dehydration --> pamidronate if doesn't correct --> trend 10.6-->10.2 # Transaminitis - may be related to meds v fluid overload --> diuresis as needed, lasix given --> ast/alt better # GP bacteremia, bilateral interstitial edema --> diuresis and abx prn --> cefepime/vanc # Respiratory failure s/p trach --> per pilm # Dyshpagia s/p gtube --> per gi # Dvt ppx scds The timing of this note does not necessarily reflect the time of the patient was seen. Greatly appreciate consultation. Subjective Cardiovascular: Denies: no symptoms, chest pain, edema, irregular heart rate, lightheadedness, palpitations, syncope, other Respiratory: Denies: no symptoms, cough, shortness of breath, SOB with excertion, SOB at rest, sputum, wheezing, other Genitourinary: Denies: no symptoms, burning, discharge, frequency, flank pain, hematuria, incontinence, pain, urgency, other Neurologic/Psychiatric: Denies: no symptoms, anxiety, depressed, emotional problems, headache, numbness, paresthesia, pre-existing deficit, seizure, tingling, tremors, weakness, other Allergies: Coded Allergies: CODEINE (Verified Allergy, Unknown, HIVES, 09/15/09) Subjective 12/14: nonverbal, daughter by bedside, anemia panel reviewed, no bleeding chills 12/15: some emesis noted overnight, jose rn, have orderd occult blood 12/16: on tpiece at this time, labs have been reviewed, hgb stable today, n/v overnight Objective Objective Current Medications Medications (Trade) Dose Ordered Sig/Maicol Route PRN Reason Start Time Stop Time Status Last Admin Dose Admin Acetaminophen (Tylenol) 650 mg Q4H PRN GT fever 12/13/18 01:45 01/12/19 01:44 Albuterol/ Ipratropium (Albuterol/ Ipratropium) 3 ml Q4H PRN HHN Shortness of Breath 12/14/18 09:45 12/19/18 09:44 12/14/18 23:56 Albuterol/ Ipratropium (Albuterol/ Ipratropium) 3 ml TIDRT HHN 12/14/18 08:00 12/19/18 07:59 12/16/18 07:32 Amlodipine Besylate (Norvasc) 5 mg DAILY GT 12/15/18 09:00 01/12/19 10:59 12/15/18 09:50 Cefepime HCl 1 gm/ Dextrose 55 ml @ 110 mls/hr Q24H IVPB 12/14/18 12:00 12/21/18 11:59 12/15/18 11:57 Dextrose (Dextrose 50%) 25 ml Q30MIN PRN IV Hypoglycemia 12/12/18 14:00 01/11/19 13:59 Dextrose (Dextrose 50%) 50 ml Q30MIN PRN IV Hypoglycemia 12/12/18 14:00 01/11/19 13:59 Famotidine (Pepcid) 20 mg DAILY GT 12/13/18 09:00 01/12/19 08:59 12/15/18 09:05 Levetiracetam (Keppra) 1,000 mg BID GT 12/13/18 09:00 01/12/19 08:59 12/15/18 17:06 Lorazepam (Ativan 2mg/ml 1ml) 0.5 mg Q4H PRN IV For Anxiety 12/12/18 14:00 12/19/18 13:59 Ondansetron HCl (Zofran) 4 mg Q6H PRN IVP Nausea & Vomiting 12/12/18 14:00 01/11/19 13:59 12/14/18 23:26 Polyethylene Glycol (Miralax) 17 gm HSPRN PRN GT Constipation 12/13/18 01:45 01/11/19 13:59 Vancomycin HCl (Vanco rx to dose) 1 ea DAILY PRN MISC Per rx protocol 12/13/18 14:45 01/12/19 14:44 Vancomycin HCl 1 gm/Dextrose 275 ml @ 183.708 mls/hr Q24H IVPB 12/13/18 16:00 12/18/18 15:59 12/15/18 16:14 Zolpidem Tartrate (Ambien) 5 mg HSPRN PRN GT Insomnia 12/13/18 01:45 12/19/18 13:59 Last 24 Hour Vital Signs Date Time Temp Pulse Resp B/P (MAP) Pulse Ox O2 Delivery O2 Flow Rate FiO2 12/16/18 07:32 74 20 100 T-Piece 8.0 30 77 20 100 12/16/18 07:32 100 T-Piece 8.0 30 12/16/18 04:00 97.2 74 18 120/69 (86) 100 12/16/18 04:00 6.0 30 12/16/18 04:00 79 12/16/18 01:45 98 T-Piece 8.0 30 12/16/18 00:00 98.4 84 16 132/62 (85) 98 12/16/18 00:00 87 12/16/18 00:00 6.0 30 12/15/18 21:00 Trach Collar 6.0 12/15/18 20:00 80 12/15/18 20:00 6.0 30 12/15/18 20:00 98.4 79 20 131/65 (87) 97 12/15/18 19:35 97 T-Piece 8.0 30 12/15/18 19:34 82 20 99 T-Piece 8.0 30 81 20 97 12/15/18 16:00 6.0 28 12/15/18 16:00 97.9 79 20 107/57 (74) 97 12/15/18 16:00 79 12/15/18 13:51 80 20 99 T-Piece 8.0 30 77 20 97 12/15/18 13:50 97 T-Piece 8.0 30 12/15/18 12:00 6.0 28 12/15/18 12:00 97.5 78 18 106/53 (70) 97 12/15/18 12:00 81 12/15/18 09:50 84 122/64 12/15/18 09:00 Trach Collar 6.0 12/15/18 08:06 87 20 98 T-Piece 8.0 30 83 20 97 12/15/18 08:06 97 T-Piece 8.0 30 12/15/18 08:00 97.2 84 20 122/64 (83) 97 12/15/18 08:00 6.0 28 12/15/18 08:00 79 12/15/18 04:00 6.0 28 12/15/18 04:00 97.3 80 18 113/58 (76) 98 12/15/18 04:00 78 12/15/18 01:30 100 T-Piece 8.0 30 12/15/18 00:00 101 12/15/18 00:00 98.2 89 18 140/70 (93) 97 12/14/18 21:00 Trach Collar 6.0 12/14/18 20:08 100 T-Piece 8.0 30 12/14/18 20:08 97 20 100 T-Piece 92 20 100 12/14/18 20:00 97.9 96 18 148/72 (97) 100 12/14/18 20:00 6.0 28 12/14/18 20:00 95 12/14/18 16:00 97.8 98 25 133/62 (85) 99 12/14/18 16:00 6.0 28 12/14/18 16:00 99 12/14/18 13:23 96 T-Piece 8.0 30 12/14/18 13:23 84 20 98 T-Piece 10.0 35 80 20 97 12/14/18 12:00 6.0 28 12/14/18 12:00 88 12/14/18 12:00 97.9 97 25 125/65 (85) 100 12/14/18 09:00 Trach Collar 6.0 12/14/18 08:40 88 116/57 Intake and Output 12/15/18 12/16/18 19:00 07:00 Intake Total 80 ml 240 ml Output Total 300 ml Balance -220 ml 240 ml Intake Free Water 60 ml Tube Feeding 20 ml 240 ml Output Urine Total 300 ml Labs Test 12/14/18 05:50 12/14/18 06:00 12/15/18 06:20 12/15/18 15:30 White Blood Count 12.2 K/UL (4.8-10.8) 10.6 K/UL (4.8-10.8) Red Blood Count 2.86 M/UL (4.20-5.40) 2.92 M/UL (4.20-5.40) Hemoglobin 8.1 G/DL (12.0-16.0) 8.3 G/DL (12.0-16.0) Hematocrit 25.6 % (37.0-47.0) 26.1 % (37.0-47.0) Mean Corpuscular Volume 90 FL (80-99) 89 FL (80-99) Mean Corpuscular Hemoglobin 28.2 PG (27.0-31.0) 28.4 PG (27.0-31.0) Mean Corpuscular Hemoglobin Concent 31.4 G/DL (32.0-36.0) 31.9 G/DL (32.0-36.0) Red Cell Distribution Width 13.4 % (11.6-14.8) 13.2 % (11.6-14.8) Platelet Count 358 K/UL (150-450) 315 K/UL (150-450) Mean Platelet Volume 4.8 FL (6.5-10.1) 5.2 FL (6.5-10.1) Neutrophils (%) (Auto) 64.5 % (45.0-75.0) 60.1 % (45.0-75.0) Lymphocytes (%) (Auto) 26.6 % (20.0-45.0) 29.8 % (20.0-45.0) Monocytes (%) (Auto) 5.0 % (1.0-10.0) 6.9 % (1.0-10.0) Eosinophils (%) (Auto) 3.3 % (0.0-3.0) 2.5 % (0.0-3.0) Basophils (%) (Auto) 0.6 % (0.0-2.0) 0.7 % (0.0-2.0) Sodium Level 141 MMOL/L (136-145) 140 MMOL/L (136-145) Potassium Level 4.5 MMOL/L (3.5-5.1) 4.4 MMOL/L (3.5-5.1) Chloride Level 100 MMOL/L (98-107) 101 MMOL/L (98-107) Carbon Dioxide Level 31 MMOL/L (21-32) 32 MMOL/L (21-32) Anion Gap 10 mmol/L (5-15) Blood Urea Nitrogen 37 mg/dL (7-18) 39 mg/dL (7-18) Creatinine 1.3 MG/DL (0.55-1.30) 1.3 MG/DL (0.55-1.30) Estimat Glomerular Filtration Rate mL/min (>60) mL/min (>60) Glucose Level 150 MG/DL (74-106) 99 MG/DL (74-106) Calcium Level 10.2 MG/DL (8.5-10.1) 9.8 MG/DL (8.5-10.1) Total Bilirubin 0.2 MG/DL (0.2-1.0) Aspartate Amino Transf (AST/SGOT) 54 U/L (15-37) Alanine Aminotransferase (ALT/SGPT) 188 U/L (12-78) Alkaline Phosphatase 455 U/L (46-116) Total Protein 9.1 G/DL (6.4-8.2) Albumin 2.7 G/DL (3.4-5.0) Globulin 6.4 g/dL Albumin/Globulin Ratio 0.4 (1.0-2.7) 0.5 (0.7-1.7) Hepatitis A IgM Antibody Negative (Negative) Hepatitis B Surface Antigen Negative (Negative) Hepatitis B Core IgM Antibody Negative (Negative) Hepatitis C Antibody <0.1 s/co ratio Total Protein (PEP) 7.7 g/dL (6.0-8.5) Albumin (PEP) 2.7 g/dL (2.9-4.4) Globulin (PEP) 5.0 g/dL (2.2-3.9) Xzlcc-9-Yqgetsrla 0.5 g/dL (0.0-0.4) Edqxv-1-Qksgnlioa 1.4 g/dL (0.4-1.0) Beta Globulins 1.2 g/dL (0.7-1.3) Beta Gamma Globulin 1.9 g/dL (0.4-1.8) PEP Abnormal Protein Bands Not observed g/dL (Not Protein Electrophoresis Interpret Comment (.) Vancomycin Level Trough 17.0 ug/mL (5.0-12.0) Test 12/16/18 06:10 White Blood Count 9.2 K/UL (4.8-10.8) Red Blood Count 3.11 M/UL (4.20-5.40) Hemoglobin 9.2 G/DL (12.0-16.0) Hematocrit 28.0 % (37.0-47.0) Mean Corpuscular Volume 90 FL (80-99) Mean Corpuscular Hemoglobin 29.4 PG (27.0-31.0) Mean Corpuscular Hemoglobin Concent 32.7 G/DL (32.0-36.0) Red Cell Distribution Width 12.2 % (11.6-14.8) Platelet Count 312 K/UL (150-450) Mean Platelet Volume 5.6 FL (6.5-10.1) Neutrophils (%) (Auto) 54.1 % (45.0-75.0) Lymphocytes (%) (Auto) 34.4 % (20.0-45.0) Monocytes (%) (Auto) 6.7 % (1.0-10.0) Eosinophils (%) (Auto) 3.8 % (0.0-3.0) Basophils (%) (Auto) 1.0 % (0.0-2.0) Sodium Level 139 MMOL/L (136-145) Potassium Level 4.1 MMOL/L (3.5-5.1) Chloride Level 99 MMOL/L (98-107) Carbon Dioxide Level 33 MMOL/L (21-32) Anion Gap 7 mmol/L (5-15) Blood Urea Nitrogen 36 mg/dL (7-18) Creatinine 1.2 MG/DL (0.55-1.30) Estimat Glomerular Filtration Rate mL/min (>60) Glucose Level 113 MG/DL (74-106) Calcium Level 9.7 MG/DL (8.5-10.1) Height (Feet): 5 Height (Inches): 4.00 Weight (Pounds): 150 Objective Physical Exam: Vitals: reviewed General Appearance: NAD HEENT: normocephalic, atraumatic ++ trach 6l Tpiece Neck: non-tender, normal alignment Respiratory/Chest: normal breath sounds bilaterally Cardiovascular/Chest: normal peripheral pulses, normal rate Abdomen: normal bowel sounds, soft, nontender + peg Extremities: normal range of motion Chris Orantes MD Dec 16, 2018 08:40
[2018-12-16] MEDS: levETIRAcetam 500mg/5ml Liquid GT SCH ×2 (09:19→20:28)
[2018-12-16] MEDS ORDERED: Metoclopramide 10mg/2ml Inj IVP SCH (10:30)
--- NOTE | 2018-12-16 10:34 | GI Initial Consult Note ---
History of Present Illness General Date patient seen: Dec 16, 2018 Time patient seen: 10:29 Reason for Hospitalization: Abnormal Labs Referring physician: Dr Willis Reason for Consultation: DECREASED GASTROMOTILITY Present Illness HPI 83-year-old female history of chronic respiratory failure, CHF hypertension, hypothyroidism, dementia trach, PEG, presents with anemia, last hemoglobin was 7.5 presenting to the ED for transfusion unknown start date, unknown aggravating alleviating factors unknown severity history is limited secondary to patient nonverbal GI consulted for reported high residuals from GT feeding. ROS limited, patient is non verbal. Discussed with RN noted that when the feeding was increased, patient would end up vomiting. Presents with anemia and abnormal LFTs. Home Meds Reported Medications Cefepime Hcl/D5w (CEFEPIME-DEXTROSE 1 GM/50 ML) 1 Gm/50 Ml Piggyback, 1 GM IVPB Q24H for 4 Days, BAG 12/15/18 Vancomycin Hcl/D5w (VANCOMYCIN HCL 1G/200 ML BAG) 1 Gm/200 Ml Froz.piggy, 1 GM IV DAILY for 4 Days, BAG 12/15/18 Levetiracetam* (LEVETIRACETAM*) 100 Mg/1 Ml Solution, 1000 MG GT BID 12/12/18 Levothyroxine Sodium* (LEVOTHYROXINE SODIUM*) 75 Mcg Tablet, 50 MCG GT DAILY, TAB Take in the morning on an empty stomach, at least 30 minutes before food. 12/12/18 Heparin Sod (Porcine) (HEPARIN SODIUM*) 5 000/1 Ml Vial, 5000 UNITS SUBQ EVERY 12 HOURS, VIAL 12/12/18 Furosemide* (LASIX*) 20 Mg Tablet, 20 MG ORAL DAILY, TAB 12/12/18 Guaifenesin* (ADULT WAL-TUSSIN*) 100 Mg/5 Ml Liquid, 10 ML ORAL Q4H, ML 12/12/18 Metoclopramide Hcl* (METOCLOPRAMIDE HCL*) 10 Mg/10 Ml Solution, 10 MG ORAL EVERY 6 HOURS, ML 12/12/18 Famotidine (FAMOTIDINE) 20 Mg Tablet, 20 MG ORAL DAILY, #30 TAB 0 Refills 12/12/18 Sodium Carbonate (SODIUM CARBONATE) 1 Gm Powder, 1 GM MC, GM 12/12/18 Papaya (PAPAYA ENZYME) 1 Each Tablet, 1 EACH PO, TAB 12/12/18 Amlodipine Besylate* (AMLODIPINE BESYLATE*) 10 Mg Tablet, 10 MG ORAL DAILY, TAB 12/12/18 No Known Medications (NO KNOWN MEDICATIONS) 1 Ea Ea 01/16/12 Discontinued Reported Medications Levothyroxine Sodium* (LEVOTHYROXINE SODIUM*) 100 Mcg Vial, 50 MCG IV DAILY, VIAL 12/12/18 Levetiracetam In Nacl (Iso-Os) (LEVETIRACETA-NACL 1,000 MG/100) 1,000 Mg/100 Ml Piggyback, 1000 MG IV, BAG 12/12/18 Heparin Sodium,Porcine/Pf (Heparin 5 Unit/5 ml (1/ml) Syr) 1 Unit/1 Ml Syringe, 1 UNIT IV, EA 12/12/18 Med list reviewed/reconciled: Yes Allergies: Coded Allergies: CODEINE (Verified Allergy, Unknown, HIVES, 09/15/09) Patient History Limited by: medical condition History Provided By: Medical Record PMH Narrative Limited by: medical condition - nonverbal Past Medical History: see triage record Last Menstrual Period: n/a Reviewed Nursing Documentation: PMH: Agreed; PSxH: Agreed Nursing Documentation-PMH Past Medical History: No History, Except For Hx Cardiac Problems: Yes - CHF, HYPOTHYRDOISM, Hx Cancer: Yes Hx Gastrointestinal Problems: Yes - GERD, GASTROSTOMY, Hx Neurological Problems: Yes - alzheimer Hx Cerebrovascular Accident: Yes - HX OF CVA Hx Transient Ischemic Attacks: Yes - DR. Cori GALARZA STATED POSSIBLE TIA Hx Dementia: Yes Hx Alzheimer's Disease: Yes Hx Seizures: Yes - 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 Hx Memory Loss: Yes Hx Aphasia: Yes Review of Systems All Other Systems: negative except mentioned in HPI Physical Exam Vital Signs Date Time Temp Pulse Resp B/P (MAP) Pulse Ox O2 Delivery O2 Flow Rate FiO2 12/12/18 12:16 98.2 81 18 132/79 (96) 100 Trach Collar 2.0 12/12/18 20:00 28 Sp02 EP Interpretation: reviewed Labs Laboratory Tests Test 12/15/18 15:30 12/16/18 06:10 Vancomycin Level Trough 17.0 ug/mL (5.0-12.0) H White Blood Count 9.2 K/UL (4.8-10.8) Red Blood Count 3.11 M/UL (4.20-5.40) L Hemoglobin 9.2 G/DL (12.0-16.0) L Hematocrit 28.0 % (37.0-47.0) L Mean Corpuscular Volume 90 FL (80-99) Mean Corpuscular Hemoglobin 29.4 PG (27.0-31.0) Mean Corpuscular Hemoglobin Concent 32.7 G/DL (32.0-36.0) Red Cell Distribution Width 12.2 % (11.6-14.8) Platelet Count 312 K/UL (150-450) Mean Platelet Volume 5.6 FL (6.5-10.1) L Neutrophils (%) (Auto) 54.1 % (45.0-75.0) Lymphocytes (%) (Auto) 34.4 % (20.0-45.0) Monocytes (%) (Auto) 6.7 % (1.0-10.0) Eosinophils (%) (Auto) 3.8 % (0.0-3.0) H Basophils (%) (Auto) 1.0 % (0.0-2.0) Sodium Level 139 MMOL/L (136-145) Potassium Level 4.1 MMOL/L (3.5-5.1) Chloride Level 99 MMOL/L (98-107) Carbon Dioxide Level 33 MMOL/L (21-32) H Anion Gap 7 mmol/L (5-15) Blood Urea Nitrogen 36 mg/dL (7-18) H Creatinine 1.2 MG/DL (0.55-1.30) Estimat Glomerular Filtration Rate mL/min (>60) Glucose Level 113 MG/DL (74-106) H Calcium Level 9.7 MG/DL (8.5-10.1) General Appearance: alert EENT: PERRL/EOMI Neck: supple Gastrointestinal: gt Neurologic: alert Current Medications Current Medications Medications (Trade) Dose Ordered Sig/Maicol Route PRN Reason Start Time Stop Time Status Last Admin Dose Admin Acetaminophen (Tylenol) 650 mg Q4H PRN GT fever 12/13/18 01:45 01/12/19 01:44 Albuterol/ Ipratropium (Albuterol/ Ipratropium) 3 ml Q4H PRN HHN Shortness of Breath 12/14/18 09:45 12/19/18 09:44 12/14/18 23:56 Albuterol/ Ipratropium (Albuterol/ Ipratropium) 3 ml TIDRT HHN 12/14/18 08:00 12/19/18 07:59 12/16/18 07:32 Amlodipine Besylate (Norvasc) 5 mg DAILY GT 12/15/18 09:00 01/12/19 10:59 12/15/18 09:50 Cefepime HCl 1 gm/ Dextrose 55 ml @ 110 mls/hr Q24H IVPB 12/14/18 12:00 12/21/18 11:59 12/15/18 11:57 Dextrose (Dextrose 50%) 25 ml Q30MIN PRN IV Hypoglycemia 12/12/18 14:00 01/11/19 13:59 Dextrose (Dextrose 50%) 50 ml Q30MIN PRN IV Hypoglycemia 12/12/18 14:00 01/11/19 13:59 Famotidine (Pepcid) 20 mg DAILY GT 12/13/18 09:00 01/12/19 08:59 12/16/18 09:19 Levetiracetam (Keppra) 1,000 mg Q12HR GT 12/16/18 21:00 01/12/19 08:59 Lorazepam (Ativan 2mg/ml 1ml) 0.5 mg Q4H PRN IV For Anxiety 12/12/18 14:00 12/19/18 13:59 Metoclopramide HCl (Reglan) 10 mg Q8H IVP 12/16/18 10:30 01/15/19 10:29 Ondansetron HCl (Zofran) 4 mg Q6H PRN IVP Nausea & Vomiting 12/12/18 14:00 01/11/19 13:59 12/14/18 23:26 Polyethylene Glycol (Miralax) 17 gm HSPRN PRN GT Constipation 12/13/18 01:45 01/11/19 13:59 Vancomycin HCl (Vanco rx to dose) 1 ea DAILY PRN MISC Per rx protocol 12/13/18 14:45 01/12/19 14:44 Vancomycin HCl 1 gm/Dextrose 275 ml @ 183.708 mls/hr Q24H IVPB 12/13/18 16:00 12/18/18 15:59 12/15/18 16:14 Zolpidem Tartrate (Ambien) 5 mg HSPRN PRN GT Insomnia 12/13/18 01:45 12/19/18 13:59 GI: Plan Problems: (1) Gastroparesis (2) Feeding by G-tube (3) Limited mobility (4) Feeding by G-tube Plan add reglan 10mg IV ATC to increase GI motility cont GTF's per RD to goal anemia work up OB stool r/o GI bleed ppi prn transfusions will follow with additional recommendations Discussed with Dr. Guzman. Thank you for this patient referral, we will follow. The patient was seen and examined at bedside and all new and available data was reviewed in the patients chart. I agree with the above findings, impression and plan. (Patient seen earlier today. Signature stamp does not reflect patient encounter time.). - MD Peyton Cano AnhAshley FERGUSON Dec 16, 2018 10:34
--- NOTE | 2018-12-16 10:36 | Infectious Diseases Prog Note ---
Assessment/Plan Assessment/Plan 83 yo female PHMx CVA s/p Trach and Peg, Not verbal, CHF, HTN, Hypothyroid, Alzheimer dementia and Seizures who was sent to the ED from her nursing facility for Anemia. Mild Leukocytosis - Resolved Unclear source increased 02 vs PNA? Mucus plug vs less likely infection CXR 12/14/18 showed Reduced lung volumes and interstitial pulmonary opacities. Edema vs pneumonia. CXR 12/15/18 did not show any opacities Positive Blood Cx Most likely contaminant Blood Cx 12/12/18 - 2/2 Staph. Epi Blood Cx 12/13/18 - Neg Anemia CVA s/p Trach and Peg Not verbal CHF HTN Hypothyroid Alzheimer dementia Seizures PLAN: - Continue Cefepime and Vancomycin #2/6 for PNA - 12/14/18 Zosyn #1 - f/u Sputum Cx - Monitor CBC and Temps Thank you for this consult. We will continue to follow the patient during this hospitalization. Subjective Allergies: Coded Allergies: CODEINE (Verified Allergy, Unknown, HIVES, 09/15/09) Subjective Afebrile No Leukocytosis Objective Vital Signs Last 24 Hour Vital Signs Date Time Temp Pulse Resp B/P (MAP) Pulse Ox O2 Delivery O2 Flow Rate FiO2 12/16/18 09:00 74 113/61 12/16/18 08:00 96.6 74 18 113/61 (78) 100 12/16/18 08:00 6.0 30 12/16/18 07:32 74 20 100 T-Piece 8.0 30 77 20 100 12/16/18 07:32 100 T-Piece 8.0 30 12/16/18 04:00 97.2 74 18 120/69 (86) 100 12/16/18 04:00 6.0 30 12/16/18 04:00 79 12/16/18 01:45 98 T-Piece 8.0 30 12/16/18 00:00 98.4 84 16 132/62 (85) 98 12/16/18 00:00 87 12/16/18 00:00 6.0 30 12/15/18 21:00 Trach Collar 6.0 12/15/18 20:00 80 12/15/18 20:00 6.0 30 12/15/18 20:00 98.4 79 20 131/65 (87) 97 12/15/18 19:35 97 T-Piece 8.0 30 12/15/18 19:34 82 20 99 T-Piece 8.0 30 81 20 97 12/15/18 16:00 6.0 28 12/15/18 16:00 97.9 79 20 107/57 (74) 97 12/15/18 16:00 79 12/15/18 13:51 80 20 99 T-Piece 8.0 30 77 20 97 12/15/18 13:50 97 T-Piece 8.0 30 12/15/18 12:00 6.0 28 12/15/18 12:00 97.5 78 18 106/53 (70) 97 12/15/18 12:00 81 Height (Feet): 5 Height (Inches): 4.00 Weight (Pounds): 150 Objective Gen: NAD, Trached, Not talking or following HEENT: NCAT, MMM, PERRL LUNGS: CTAB, No W/C, No Accessory muscle use CARDS: RRR, S1, S2, No M/R/G, ABD: Soft, NT, ND, No R/G, + BS, No HSM, No Masses Microbiology Date/Time Source Procedure Growth Status 12/13/18 16:35 Blood Blood Culture - Preliminary NO GROWTH AFTER 48 HOURS Resulted 12/13/18 16:30 Blood Blood Culture - Preliminary NO GROWTH AFTER 48 HOURS Resulted 12/14/18 20:11 Sputum Gram Stain - Final Resulted 12/14/18 20:11 Sputum Sputum Culture Pending Resulted Laboratory Tests Test 12/15/18 15:30 12/16/18 06:10 Vancomycin Level Trough 17.0 ug/mL (5.0-12.0) H White Blood Count 9.2 K/UL (4.8-10.8) Red Blood Count 3.11 M/UL (4.20-5.40) L Hemoglobin 9.2 G/DL (12.0-16.0) L Hematocrit 28.0 % (37.0-47.0) L Mean Corpuscular Volume 90 FL (80-99) Mean Corpuscular Hemoglobin 29.4 PG (27.0-31.0) Mean Corpuscular Hemoglobin Concent 32.7 G/DL (32.0-36.0) Red Cell Distribution Width 12.2 % (11.6-14.8) Platelet Count 312 K/UL (150-450) Mean Platelet Volume 5.6 FL (6.5-10.1) L Neutrophils (%) (Auto) 54.1 % (45.0-75.0) Lymphocytes (%) (Auto) 34.4 % (20.0-45.0) Monocytes (%) (Auto) 6.7 % (1.0-10.0) Eosinophils (%) (Auto) 3.8 % (0.0-3.0) H Basophils (%) (Auto) 1.0 % (0.0-2.0) Sodium Level 139 MMOL/L (136-145) Potassium Level 4.1 MMOL/L (3.5-5.1) Chloride Level 99 MMOL/L (98-107) Carbon Dioxide Level 33 MMOL/L (21-32) H Anion Gap 7 mmol/L (5-15) Blood Urea Nitrogen 36 mg/dL (7-18) H Creatinine 1.2 MG/DL (0.55-1.30) Estimat Glomerular Filtration Rate mL/min (>60) Glucose Level 113 MG/DL (74-106) H Calcium Level 9.7 MG/DL (8.5-10.1) Current Medications Medications (Trade) Dose Ordered Sig/Maicol Route PRN Reason Start Time Stop Time Status Last Admin Dose Admin Acetaminophen (Tylenol) 650 mg Q4H PRN GT fever 12/13/18 01:45 01/12/19 01:44 Albuterol/ Ipratropium (Albuterol/ Ipratropium) 3 ml Q4H PRN HHN Shortness of Breath 12/14/18 09:45 12/19/18 09:44 12/14/18 23:56 Albuterol/ Ipratropium (Albuterol/ Ipratropium) 3 ml TIDRT HHN 12/14/18 08:00 12/19/18 07:59 12/16/18 07:32 Amlodipine Besylate (Norvasc) 5 mg DAILY GT 12/15/18 09:00 01/12/19 10:59 12/15/18 09:50 Cefepime HCl 1 gm/ Dextrose 55 ml @ 110 mls/hr Q24H IVPB 12/14/18 12:00 12/21/18 11:59 12/15/18 11:57 Dextrose (Dextrose 50%) 25 ml Q30MIN PRN IV Hypoglycemia 12/12/18 14:00 01/11/19 13:59 Dextrose (Dextrose 50%) 50 ml Q30MIN PRN IV Hypoglycemia 12/12/18 14:00 01/11/19 13:59 Famotidine (Pepcid) 20 mg DAILY GT 12/13/18 09:00 01/12/19 08:59 12/16/18 09:19 Levetiracetam (Keppra) 1,000 mg Q12HR GT 12/16/18 21:00 01/12/19 08:59 Lorazepam (Ativan 2mg/ml 1ml) 0.5 mg Q4H PRN IV For Anxiety 12/12/18 14:00 12/19/18 13:59 Metoclopramide HCl (Reglan) 10 mg Q8H IVP 12/16/18 10:30 01/15/19 10:29 Ondansetron HCl (Zofran) 4 mg Q6H PRN IVP Nausea & Vomiting 12/12/18 14:00 01/11/19 13:59 12/14/18 23:26 Polyethylene Glycol (Miralax) 17 gm HSPRN PRN GT Constipation 12/13/18 01:45 01/11/19 13:59 Vancomycin HCl (Vanco rx to dose) 1 ea DAILY PRN MISC Per rx protocol 12/13/18 14:45 01/12/19 14:44 Vancomycin HCl 1 gm/Dextrose 275 ml @ 183.708 mls/hr Q24H IVPB 12/13/18 16:00 12/18/18 15:59 12/15/18 16:14 Zolpidem Tartrate (Ambien) 5 mg HSPRN PRN GT Insomnia 12/13/18 01:45 12/19/18 13:59 Bg Padilla MD Dec 16, 2018 10:36
--- NOTE | 2018-12-16 11:06 | Pulmonology Progress Note ---
Assessment/Plan Problems: (1) Chronic respiratory failure (2) Anemia (3) Intractable nausea and vomiting (4) Leukocytosis (5) Chronic vegetative state (6) Feeding by G-tube (7) Feeding by G-tube (8) HTN (hypertension) (9) Limited mobility Assessment/Plan no more vomiting iv fluids anemia w/u in progress respiratory treatment f/u GI recommendations check sputum Subjective ROS Limited/Unobtainable: No Constitutional: Reports: no symptoms HEENT: Repors: no symptoms Respiratory: Reports: no symptoms Allergies: Coded Allergies: CODEINE (Verified Allergy, Unknown, HIVES, 09/15/09) Objective Last 24 Hour Vital Signs Date Time Temp Pulse Resp B/P (MAP) Pulse Ox O2 Delivery O2 Flow Rate FiO2 12/16/18 09:00 74 113/61 12/16/18 08:00 96.6 74 18 113/61 (78) 100 12/16/18 08:00 6.0 30 12/16/18 07:32 74 20 100 T-Piece 8.0 30 77 20 100 12/16/18 07:32 100 T-Piece 8.0 30 12/16/18 04:00 97.2 74 18 120/69 (86) 100 12/16/18 04:00 6.0 30 12/16/18 04:00 79 12/16/18 01:45 98 T-Piece 8.0 30 12/16/18 00:00 98.4 84 16 132/62 (85) 98 12/16/18 00:00 87 12/16/18 00:00 6.0 30 12/15/18 21:00 Trach Collar 6.0 12/15/18 20:00 80 12/15/18 20:00 6.0 30 12/15/18 20:00 98.4 79 20 131/65 (87) 97 12/15/18 19:35 97 T-Piece 8.0 30 12/15/18 19:34 82 20 99 T-Piece 8.0 30 81 20 97 12/15/18 16:00 6.0 28 12/15/18 16:00 97.9 79 20 107/57 (74) 97 12/15/18 16:00 79 12/15/18 13:51 80 20 99 T-Piece 8.0 30 77 20 97 12/15/18 13:50 97 T-Piece 8.0 30 12/15/18 12:00 6.0 28 12/15/18 12:00 97.5 78 18 106/53 (70) 97 12/15/18 12:00 81 Intake and Output 12/15/18 12/16/18 19:00 07:00 Intake Total 80 ml 240 ml Output Total 300 ml Balance -220 ml 240 ml Intake Free Water 60 ml Tube Feeding 20 ml 240 ml Output Urine Total 300 ml HEENT: normocephalic, atraumatic, status post trach Respiratory/Chest: chest wall non-tender, crackles/rales Cardiovascular: normal rate Abdomen: normal bowel sounds, soft, non tender Genitourinary: normal external genitalia Neurologic/Psychiatric: brake repairer bus II-XII grossly normal Microbiology Date/Time Source Procedure Growth Status 12/13/18 16:35 Blood Blood Culture - Preliminary NO GROWTH AFTER 48 HOURS Resulted 12/13/18 16:30 Blood Blood Culture - Preliminary NO GROWTH AFTER 48 HOURS Resulted 12/14/18 20:11 Sputum Gram Stain - Final Resulted 12/14/18 20:11 Sputum Sputum Culture Pending Resulted Laboratory Tests 12/15/18 15:30: Vancomycin Level Trough 17.0H 12/16/18 06:10: White Blood Count 9.2, Red Blood Count 3.11L, Hemoglobin 9.2L, Hematocrit 28.0L , Mean Corpuscular Volume 90, Mean Corpuscular Hemoglobin 29.4, Mean Corpuscular Hemoglobin Concent 32.7, Red Cell Distribution Width 12.2, Platelet Count 312, Mean Platelet Volume 5.6L, Neutrophils (%) (Auto) 54.1, Lymphocytes ( %) (Auto) 34.4, Monocytes (%) (Auto) 6.7, Eosinophils (%) (Auto) 3.8H, Basophils (%) (Auto) 1.0, Sodium Level 139, Potassium Level 4.1, Chloride Level 99, Carbon Dioxide Level 33H, Anion Gap 7, Blood Urea Nitrogen 36H, Creatinine 1.2, Estimat Glomerular Filtration Rate , Glucose Level 113H, Calcium Level 9.7 Current Medications Medications (Trade) Dose Ordered Sig/Maicol Route PRN Reason Start Time Stop Time Status Last Admin Dose Admin Acetaminophen (Tylenol) 650 mg Q4H PRN GT fever 12/13/18 01:45 01/12/19 01:44 Albuterol/ Ipratropium (Albuterol/ Ipratropium) 3 ml Q4H PRN HHN Shortness of Breath 12/14/18 09:45 12/19/18 09:44 12/14/18 23:56 Albuterol/ Ipratropium (Albuterol/ Ipratropium) 3 ml TIDRT HHN 12/14/18 08:00 12/19/18 07:59 12/16/18 07:32 Amlodipine Besylate (Norvasc) 5 mg DAILY GT 12/15/18 09:00 01/12/19 10:59 12/15/18 09:50 Cefepime HCl 1 gm/ Dextrose 55 ml @ 110 mls/hr Q24H IVPB 12/14/18 12:00 12/21/18 11:59 12/15/18 11:57 Dextrose (Dextrose 50%) 25 ml Q30MIN PRN IV Hypoglycemia 12/12/18 14:00 01/11/19 13:59 Dextrose (Dextrose 50%) 50 ml Q30MIN PRN IV Hypoglycemia 12/12/18 14:00 01/11/19 13:59 Famotidine (Pepcid) 20 mg DAILY GT 12/13/18 09:00 01/12/19 08:59 12/16/18 09:19 Levetiracetam (Keppra) 1,000 mg Q12HR GT 12/16/18 21:00 01/12/19 08:59 Lorazepam (Ativan 2mg/ml 1ml) 0.5 mg Q4H PRN IV For Anxiety 12/12/18 14:00 12/19/18 13:59 Metoclopramide HCl (Reglan) 10 mg Q8H IVP 12/16/18 10:30 01/15/19 10:29 12/16/18 10:51 Ondansetron HCl (Zofran) 4 mg Q6H PRN IVP Nausea & Vomiting 12/12/18 14:00 01/11/19 13:59 12/14/18 23:26 Polyethylene Glycol (Miralax) 17 gm HSPRN PRN GT Constipation 12/13/18 01:45 01/11/19 13:59 Vancomycin HCl (Vanco rx to dose) 1 ea DAILY PRN MISC Per rx protocol 12/13/18 14:45 10/14/19 14:44 Vancomycin HCl 1 gm/Dextrose 275 ml @ 183.708 mls/hr Q24H IVPB 12/13/18 16:00 12/18/18 15:59 12/15/18 16:14 Zolpidem Tartrate (Ambien) 5 mg HSPRN PRN GT Insomnia 12/13/18 01:45 12/19/18 13:59 Alexa Phipps MD Dec 16, 2018 11:06
[2018-12-16 12:00] VITALS: BP 115/63
[2018-12-16] MEDS: Cefepime HCl 1 GM in D5W 55 ML IVPB SCH (12:06)
--- NOTE | 2018-12-16 12:33 | CDS Physician Query ---
Clarification is required for compliance, coding accuracy, and to reflect severity of illness for this patient Dear gB Toure MD Date: 12/16/2018 CDS: Boni Ruiz A diagnosis of "Pneumonia" is documented, and the patient is on: Please specify the underlying etiology: [] Gram +Positive Organism(s) [] Anaerobes [X] Gram -Negative Organism(s) [] Aspiration [] Pseudomonas [] Mycoplasma [] MRSA [] Not Applicable [] Other organism(s). Please specify: Present on Admission: [] Yes [] No [] Clinically Undetermined Physician signature Date Please also document in your Progress Notes and/or Discharge Summary and indicate if the condition was present on admission. TERED
--- NOTE | 2018-12-16 13:32 | General Progress Note ---
Assessment/Plan Problem List: (1) Respiratory failure ICD Codes: J96.90 - Respiratory failure, unspecified, unspecified whether with hypoxia or hypercapnia SNOMED: 305073477 (2) HTN (hypertension) ICD Codes: I10 - Essential (primary) hypertension SNOMED: 12423608 (3) Leukocytosis ICD Codes: D72.829 - Elevated white blood cell count, unspecified SNOMED: 520182131, 050068460 (4) Anemia ICD Codes: D64.9 - Anemia, unspecified SNOMED: 787709835, 190200816 Qualifiers: Qualified Codes: D64.9 - Anemia, unspecified Status: stable, progressing Assessment/Plan: o2 pulm tx abx prn transfuse prn cbc bmp am dc plan if clear by heme and id Subjective Constitutional: Reports: weakness Allergies: Coded Allergies: CODEINE (Verified Allergy, Unknown, HIVES, 09/15/09) All Systems: reviewed and negative except above Subjective trach aerosol asleep Objective Last 24 Hour Vital Signs Date Time Temp Pulse Resp B/P (MAP) Pulse Ox O2 Delivery O2 Flow Rate FiO2 12/16/18 13:14 77 20 100 T-Piece 8.0 30 71 20 99 12/16/18 13:14 100 T-Piece 8.0 30 12/16/18 12:00 77 12/16/18 12:00 6.0 30 12/16/18 12:00 96.6 79 18 115/63 (80) 99 12/16/18 09:00 Trach Collar 6.0 12/16/18 09:00 74 113/61 12/16/18 08:00 96.6 74 18 113/61 (78) 100 12/16/18 08:00 87 12/16/18 08:00 6.0 30 12/16/18 07:32 74 20 100 T-Piece 8.0 30 77 20 100 12/16/18 07:32 100 T-Piece 8.0 30 12/16/18 04:00 97.2 74 18 120/69 (86) 100 12/16/18 04:00 6.0 30 12/16/18 04:00 79 12/16/18 01:45 98 T-Piece 8.0 30 12/16/18 00:00 98.4 84 16 132/62 (85) 98 12/16/18 00:00 87 12/16/18 00:00 6.0 30 12/15/18 21:00 Trach Collar 6.0 12/15/18 20:00 80 12/15/18 20:00 6.0 30 12/15/18 20:00 98.4 79 20 131/65 (87) 97 12/15/18 19:35 97 T-Piece 8.0 30 12/15/18 19:34 82 20 99 T-Piece 8.0 30 81 20 97 12/15/18 16:00 6.0 28 12/15/18 16:00 97.9 79 20 107/57 (74) 97 12/15/18 16:00 79 12/15/18 13:51 80 20 99 T-Piece 8.0 30 77 20 97 12/15/18 13:50 97 T-Piece 8.0 30 Intake and Output 12/15/18 12/16/18 19:00 07:00 Intake Total 80 ml 240 ml Output Total 300 ml Balance -220 ml 240 ml Intake Free Water 60 ml Tube Feeding 20 ml 240 ml Output Urine Total 300 ml Laboratory Tests 12/15/18 15:30: Vancomycin Level Trough 17.0H 12/16/18 06:10: White Blood Count 9.2, Red Blood Count 3.11L, Hemoglobin 9.2L, Hematocrit 28.0L , Mean Corpuscular Volume 90, Mean Corpuscular Hemoglobin 29.4, Mean Corpuscular Hemoglobin Concent 32.7, Red Cell Distribution Width 12.2, Platelet Count 312, Mean Platelet Volume 5.6L, Neutrophils (%) (Auto) 54.1, Lymphocytes ( %) (Auto) 34.4, Monocytes (%) (Auto) 6.7, Eosinophils (%) (Auto) 3.8H, Basophils (%) (Auto) 1.0, Sodium Level 139, Potassium Level 4.1, Chloride Level 99, Carbon Dioxide Level 33H, Anion Gap 7, Blood Urea Nitrogen 36H, Creatinine 1.2, Estimat Glomerular Filtration Rate , Glucose Level 113H, Calcium Level 9.7 Height (Feet): 5 Height (Inches): 4.00 Weight (Pounds): 150 General Appearance: lethargic EENT: normal ENT inspection Neck: normal alignment Cardiovascular: normal peripheral pulses, normal rate, regular rhythm Respiratory/Chest: chest wall non-tender, lungs clear, normal breath sounds Abdomen: normal bowel sounds, non tender, soft Extremities: normal inspection Edema: no edema noted Arm (L), no edema noted Arm (R), no edema noted Leg (L), no edema noted Leg (R), no edema noted Pedal (L), no edema noted Pedal (R), no edema noted Generalized Neurologic: motor weakness Skin: normal pigmentation, warm/dry Dustin Willis DO Dec 16, 2018 13:32
[2018-12-16 16:00] VITALS: BP 112/79
[2018-12-16] MEDS: Vancomycin 1gm in D5W 275ml IVPB SCH (16:14)
[2018-12-16] MEDS ORDERED: LORazepam Inj 2mg/ml 1ml IV PRN (18:30)
[2018-12-16] MEDS ORDERED: Acetaminophen 650mg/20.3ml GT PRN (18:30)
[2018-12-16] MEDS ORDERED: Albuterol/Ipratropium 3ml neb HHN PRN (18:30)
[2018-12-16] MEDS: Metoclopramide 10mg/2ml Inj IVP SCH (18:58)
[2018-12-16 20:12] VITALS: BP 129/71
[2018-12-16] MEDS ORDERED: levETIRAcetam 500mg/5ml Liquid GT SCH (21:00)
[2018-12-16] MEDS ORDERED: Zolpidem 5mg tab GT PRN (21:00)
[2018-12-16] MEDS ORDERED: Miralax 17gm pkt GT PRN (21:00)
[2018-12-17 00:36] VITALS: BP 109/53
[2018-12-17] MEDS: Metoclopramide 10mg/2ml Inj IVP SCH ×2 (03:12→12:37)
[2018-12-17 04:27] VITALS: BP 103/64
[2018-12-17 05:43] LABS: BASOPHILS % (AUTO) 0.6 % (0.0-2.0); EOSINOPHILS % (AUTO) 3.9 % (0.0-3.0); HEMATOCRIT 27.6 % (37.0-47.0); HEMOGLOBIN 8.8 G/DL (12.0-16.0); LYMPHOCYTES % (AUTO) 35.9 % (20.0-45.0); MEAN CORPUSCULAR VOLUME 88 FL (80-99); MONOCYTES % (AUTO) 7.9 % (1.0-10.0); NEUTROPHILS % (AUTO) 51.8 % (45.0-75.0); PLATELET COUNT 345 K/UL (150-450); RED BLOOD COUNT 3.13 M/UL (4.20-5.40); RED CELL DISTRIBUTION WIDTH 13.6 % (11.6-14.8); WHITE BLOOD COUNT 9.6 K/UL (4.8-10.8)
[2018-12-17 06:02] LABS: ALANINE AMINOTRANSFERASE 83 U/L (12-78); ALBUMIN 2.8 G/DL (3.4-5.0); ALBUMIN/GLOBULIN RATIO 0.5 (1.0-2.7); ALKALINE PHOSPHATASE 317 U/L (46-116); ANION GAP 5 mmol/L (5-15); ASPARTATE AMINO TRANSFERASE 28 U/L (15-37); BILIRUBIN,TOTAL 0.2 MG/DL (0.2-1.0); BLOOD UREA NITROGEN 31 mg/dL (7-18); CALCIUM 9.7 MG/DL (8.5-10.1); CARBON DIOXIDE 33 MMOL/L (21-32); CHLORIDE 101 MMOL/L (98-107); CREATININE 1.1 MG/DL (0.55-1.30); PHOSPHORUS 3.9 MG/DL (2.5-4.9); POTASSIUM 4.1 MMOL/L (3.5-5.1); SODIUM 139 MMOL/L (136-145)
--- NOTE | 2018-12-17 06:25 | Hematology/Onc Progress Note ---
Assessment/Plan Assessment/Plan Assessment and Recs: # Anemia of chronic disease due to underlying chronic medical issues, multifactorial --> Anemia workup has been reviewed and elev ferritin and low sat % --> No evidence of hemolysis is noted, peripheral smear has been reviewed. --> Hgb goal >7. Transfuse prn. --> Epogen or iron at this time is not particularly indicated --> Medications have been reviewed --> low threshold for gi evaluation in case has occult + --> bone marrow biopsy is not indicated given the other more likely causes --> trend 8.1-->8.3-->9.1-->8.8 # HYpercalcemia with elev Ca++ on admission 01-09 --> give ivf have been started --> potentially due to dehydration --> pamidronate if doesn't correct --> trend 10.6-->10.2-->9.7 # Transaminitis - may be related to meds v fluid overload --> diuresis as needed, lasix given --> ast/alt better # GP bacteremia, bilateral interstitial edema --> diuresis and abx prn --> cefepime/vanc # Respiratory failure s/p trach --> per pilm # Dyshpagia s/p gtube --> per gi # Dvt ppx scds The timing of this note does not necessarily reflect the time of the patient was seen. Greatly appreciate consultation. Subjective Constitutional: Denies: no symptoms, chills, fever, malaise, weakness, other Respiratory: Denies: no symptoms, cough, shortness of breath, SOB with excertion, SOB at rest, sputum, wheezing, other Gastrointestinal/Abdominal: Denies: no symptoms, abdomen distended, abdominal pain, black stools, tarry stools, blood in stool, constipated, diarrhea, difficulty swallowing, nausea, poor appetite, poor fluid intake, rectal bleeding , vomiting, other Genitourinary: Denies: no symptoms, burning, discharge, frequency, flank pain, hematuria, incontinence, pain, urgency, other Neurologic/Psychiatric: Denies: no symptoms, anxiety, depressed, emotional problems, headache, numbness, paresthesia, pre-existing deficit, seizure, tingling, tremors, weakness, other Allergies: Coded Allergies: CODEINE (Verified Allergy, Unknown, HIVES, 09/15/09) Subjective 12/14: nonverbal, daughter by bedside, anemia panel reviewed, no bleeding chills 12/15: some emesis noted overnight, jose rn, have orderd occult blood 12/16: on tpiece at this time, labs have been reviewed, hgb stable today, n/v overnight 12/17: no events, discussed care with rn, no bleeding noted, on trach Objective Objective Current Medications Medications (Trade) Dose Ordered Sig/Maicol Route PRN Reason Start Time Stop Time Status Last Admin Dose Admin Acetaminophen (Tylenol) 650 mg Q4H PRN GT fever 12/16/18 18:30 01/12/19 18:29 Albuterol/ Ipratropium (Albuterol/ Ipratropium) 3 ml Q4H PRN HHN Shortness of Breath 12/16/18 18:30 12/19/18 18:29 Albuterol/ Ipratropium (Albuterol/ Ipratropium) 3 ml TIDRT HHN 12/16/18 19:00 12/19/18 07:59 12/16/18 20:34 Amlodipine Besylate (Norvasc) 5 mg DAILY GT 12/16/18 20:00 01/15/19 19:59 12/16/18 20:27 Cefepime HCl 1 gm/ Dextrose 55 ml @ 110 mls/hr Q24H IVPB 12/17/18 12:00 12/21/18 11:59 Dextrose (Dextrose 50%) 25 ml Q30M PRN IV Hypoglycemia 12/16/18 18:30 01/15/19 18:29 Dextrose (Dextrose 50%) 50 ml Q30M PRN IV Hypoglycemia 12/16/18 18:30 01/15/19 18:29 Famotidine (Pepcid) 20 mg DAILY GT 12/17/18 09:00 01/12/19 08:59 Levetiracetam (Keppra) 1,000 mg Q12HR GT 12/16/18 21:00 01/12/19 08:59 12/16/18 20:28 Lorazepam (Ativan 2mg/ml 1ml) 0.5 mg Q4H PRN IV For Anxiety 12/16/18 18:30 12/19/18 18:29 Metoclopramide HCl (Reglan) 10 mg Q8H IVP 12/16/18 19:00 01/15/19 18:59 12/17/18 03:12 Ondansetron HCl (Zofran) 4 mg Q6H PRN IVP Nausea & Vomiting 12/16/18 18:30 01/11/19 18:29 Polyethylene Glycol (Miralax) 17 gm HSPRN PRN GT Constipation 12/16/18 21:00 01/15/19 20:59 Vancomycin HCl (Vanco rx to dose) 1 ea DAILY PRN MISC Per rx protocol 12/16/18 18:30 01/15/19 18:29 Vancomycin HCl 1 gm/Dextrose 275 ml @ 183.708 mls/hr Q24H IVPB 12/17/18 16:00 12/18/18 15:59 Zolpidem Tartrate (Ambien) 5 mg HSPRN PRN GT Insomnia 12/16/18 21:00 12/23/18 20:59 Last 24 Hour Vital Signs Date Time Temp Pulse Resp B/P (MAP) Pulse Ox O2 Delivery O2 Flow Rate FiO2 12/17/18 04:27 98.0 79 20 103/64 (77) 97 12/17/18 01:15 97 T-Piece 8.0 30 12/17/18 00:36 98.1 85 20 109/53 (71) 98 12/16/18 21:52 Trach Collar 6.0 12/16/18 20:27 79 129/71 12/16/18 20:12 97.7 79 20 129/71 (90) 100 12/16/18 20:00 80 18 98 T-Piece 8.0 30 78 18 96 12/16/18 20:00 96 T-Piece 8.0 30 12/16/18 16:00 6.0 30 12/16/18 16:00 96.9 74 20 112/79 (90) 97 12/16/18 16:00 74 12/16/18 13:14 77 20 100 T-Piece 8.0 30 71 20 99 12/16/18 13:14 100 T-Piece 8.0 30 12/16/18 12:00 77 12/16/18 12:00 6.0 30 12/16/18 12:00 96.6 79 18 115/63 (80) 99 12/16/18 09:00 Trach Collar 6.0 12/16/18 09:00 74 113/61 12/16/18 08:00 96.6 74 18 113/61 (78) 100 12/16/18 08:00 87 12/16/18 08:00 6.0 30 12/16/18 07:32 74 20 100 T-Piece 8.0 30 77 20 100 12/16/18 07:32 100 T-Piece 8.0 30 12/16/18 04:00 97.2 74 18 120/69 (86) 100 12/16/18 04:00 6.0 30 12/16/18 04:00 79 12/16/18 01:45 98 T-Piece 8.0 30 12/16/18 00:00 98.4 84 16 132/62 (85) 98 12/16/18 00:00 87 12/16/18 00:00 6.0 30 12/15/18 21:00 Trach Collar 6.0 12/15/18 20:00 80 12/15/18 20:00 6.0 30 12/15/18 20:00 98.4 79 20 131/65 (87) 97 12/15/18 19:35 97 T-Piece 8.0 30 12/15/18 19:34 82 20 99 T-Piece 8.0 30 81 20 97 12/15/18 16:00 6.0 28 12/15/18 16:00 97.9 79 20 107/57 (74) 97 12/15/18 16:00 79 12/15/18 13:51 80 20 99 T-Piece 8.0 30 77 20 97 12/15/18 13:50 97 T-Piece 8.0 30 12/15/18 12:00 6.0 28 12/15/18 12:00 97.5 78 18 106/53 (70) 97 12/15/18 12:00 81 12/15/18 09:50 84 122/64 12/15/18 09:00 Trach Collar 6.0 12/15/18 08:06 87 20 98 T-Piece 8.0 30 83 20 97 12/15/18 08:06 97 T-Piece 8.0 30 12/15/18 08:00 97.2 84 20 122/64 (83) 97 12/15/18 08:00 6.0 28 12/15/18 08:00 79 Intake and Output 12/16/18 12/17/18 19:00 07:00 Intake Total 50 ml 215 ml Output Total 550 ml Balance -500 ml 215 ml Tube Feeding 50 ml 215 ml Output Urine Total 550 ml Labs Test 12/15/18 06:20 12/15/18 15:30 12/16/18 06:10 12/17/18 04:47 White Blood Count 10.6 K/UL (4.8-10.8) 9.2 K/UL (4.8-10.8) 9.6 K/UL (4.8-10.8) Red Blood Count 2.92 M/UL (4.20-5.40) 3.11 M/UL (4.20-5.40) 3.13 M/UL (4.20-5.40) Hemoglobin 8.3 G/DL (12.0-16.0) 9.2 G/DL (12.0-16.0) 8.8 G/DL (12.0-16.0) Hematocrit 26.1 % (37.0-47.0) 28.0 % (37.0-47.0) 27.6 % (37.0-47.0) Mean Corpuscular Volume 89 FL (80-99) 90 FL (80-99) 88 FL (80-99) Mean Corpuscular Hemoglobin 28.4 PG (27.0-31.0) 29.4 PG (27.0-31.0) 28.2 PG (27.0-31.0) Mean Corpuscular Hemoglobin Concent 31.9 G/DL (32.0-36.0) 32.7 G/DL (32.0-36.0) 32.0 G/DL (32.0-36.0) Red Cell Distribution Width 13.2 % (11.6-14.8) 12.2 % (11.6-14.8) 13.6 % (11.6-14.8) Platelet Count 315 K/UL (150-450) 312 K/UL (150-450) 345 K/UL (150-450) Mean Platelet Volume 5.2 FL (6.5-10.1) 5.6 FL (6.5-10.1) 4.2 FL (6.5-10.1) Neutrophils (%) (Auto) 60.1 % (45.0-75.0) 54.1 % (45.0-75.0) 51.8 % (45.0-75.0) Lymphocytes (%) (Auto) 29.8 % (20.0-45.0) 34.4 % (20.0-45.0) 35.9 % (20.0-45.0) Monocytes (%) (Auto) 6.9 % (1.0-10.0) 6.7 % (1.0-10.0) 7.9 % (1.0-10.0) Eosinophils (%) (Auto) 2.5 % (0.0-3.0) 3.8 % (0.0-3.0) 3.9 % (0.0-3.0) Basophils (%) (Auto) 0.7 % (0.0-2.0) 1.0 % (0.0-2.0) 0.6 % (0.0-2.0) Sodium Level 140 MMOL/L (136-145) 139 MMOL/L (136-145) 139 MMOL/L (136-145) Potassium Level 4.4 MMOL/L (3.5-5.1) 4.1 MMOL/L (3.5-5.1) 4.1 MMOL/L (3.5-5.1) Chloride Level 101 MMOL/L (98-107) 99 MMOL/L (98-107) 101 MMOL/L (98-107) Carbon Dioxide Level 32 MMOL/L (21-32) 33 MMOL/L (21-32) 33 MMOL/L (21-32) Blood Urea Nitrogen 39 mg/dL (7-18) 36 mg/dL (7-18) 31 mg/dL (7-18) Creatinine 1.3 MG/DL (0.55-1.30) 1.2 MG/DL (0.55-1.30) 1.1 MG/DL (0.55-1.30) Estimat Glomerular Filtration Rate mL/min (>60) mL/min (>60) mL/min (>60) Glucose Level 99 MG/DL (74-106) 113 MG/DL (74-106) 132 MG/DL (74-106) Calcium Level 9.8 MG/DL (8.5-10.1) 9.7 MG/DL (8.5-10.1) 9.7 MG/DL (8.5-10.1) Vancomycin Level Trough 17.0 ug/mL (5.0-12.0) Anion Gap 7 mmol/L (5-15) 5 mmol/L (5-15) Phosphorus Level 3.9 MG/DL (2.5-4.9) Magnesium Level 2.8 MG/DL (1.8-2.4) Total Bilirubin 0.2 MG/DL (0.2-1.0) Aspartate Amino Transf (AST/SGOT) 28 U/L (15-37) Alanine Aminotransferase (ALT/SGPT) 83 U/L (12-78) Alkaline Phosphatase 317 U/L (46-116) Total Protein 9.0 G/DL (6.4-8.2) Albumin 2.8 G/DL (3.4-5.0) Globulin 6.2 g/dL Albumin/Globulin Ratio 0.5 (1.0-2.7) Height (Feet): 5 Height (Inches): 4.00 Weight (Pounds): 160 Objective Physical Exam: Vitals: reviewed General Appearance: NAD HEENT: normocephalic, atraumatic ++ trach 6l Tpiece Neck: non-tender, normal alignment Respiratory/Chest: normal breath sounds bilaterally Cardiovascular/Chest: normal peripheral pulses, normal rate Abdomen: normal bowel sounds, soft, nontender + peg Extremities: normal range of motion Chris Orantes MD Dec 17, 2018 06:25
[2018-12-17] MEDS: Albuterol/Ipratropium 3ml neb HHN SCH ×2 (07:52→12:11)
[2018-12-17 08:00] VITALS: BP 113/64
[2018-12-17] MEDS: levETIRAcetam 500mg/5ml Liquid GT SCH (08:57)
--- NOTE | 2018-12-17 10:28 | Infectious Diseases Prog Note ---
Assessment/Plan Assessment/Plan 83 yo female PHMx CVA s/p Trach and Peg, Not verbal, CHF, HTN, Hypothyroid, Alzheimer dementia and Seizures who was sent to the ED from her nursing facility for Anemia. Mild Leukocytosis - Resolved Unclear source increased 02 vs PNA? Mucus plug vs less likely infection CXR 12/14/18 showed Reduced lung volumes and interstitial pulmonary opacities. Edema vs pneumonia. CXR 12/15/18 did not show any opacities Sputum Cx 12/14/18 - GNR Positive Blood Cx Most likely contaminant Blood Cx 12/12/18 - 2/2 Staph. Epi Blood Cx 12/13/18 - Neg Anemia CVA s/p Trach and Peg Not verbal CHF HTN Hypothyroid Alzheimer dementia Seizures PLAN: - Continue Cefepime #3/6 for PNA - 12/17/18 SP Vancomycin #3 - 12/14/18 SP Zosyn #1 - f/u Sputum Cx - Monitor CBC and Temps Thank you for this consult. We will continue to follow the patient during this hospitalization. Subjective Allergies: Coded Allergies: CODEINE (Verified Allergy, Unknown, HIVES, 09/15/09) Subjective Afebrile No Leukocytosis Satting well Objective Vital Signs Last 24 Hour Vital Signs Date Time Temp Pulse Resp B/P (MAP) Pulse Ox O2 Delivery O2 Flow Rate FiO2 12/17/18 09:00 Trach Collar 8.0 12/17/18 08:58 83 113/64 12/17/18 08:02 T-Piece 8.0 30 12/17/18 08:00 97.3 83 18 113/64 (80) 6 12/17/18 07:56 98 T-Piece 8.0 30 12/17/18 07:52 82 20 97 12/17/18 04:27 98.0 79 20 103/64 (77) 97 12/17/18 01:15 97 T-Piece 8.0 30 12/17/18 00:36 98.1 85 20 109/53 (71) 98 12/16/18 21:52 Trach Collar 6.0 12/16/18 20:27 79 129/71 12/16/18 20:12 97.7 79 20 129/71 (90) 100 12/16/18 20:00 80 18 98 T-Piece 8.0 30 78 18 96 12/16/18 20:00 96 T-Piece 8.0 30 9/17/19 16:00 6.0 30 12/16/18 16:00 96.9 74 20 112/79 (90) 97 12/16/18 16:00 74 12/16/18 13:14 77 20 100 T-Piece 8.0 30 71 20 99 12/16/18 13:14 100 T-Piece 8.0 30 12/16/18 12:00 77 12/16/18 12:00 6.0 30 12/16/18 12:00 96.6 79 18 115/63 (80) 99 Height (Feet): 5 Height (Inches): 4.00 Weight (Pounds): 160 Objective Gen: NAD, Trached, Not following HEENT: NCAT, MMM, PERRL LUNGS: CTAB, No W/C, No Accessory muscle use CARDS: RRR, S1, S2, No M/R/G, ABD: Soft, NT, ND, No R/G, + BS, No HSM, No Masses Microbiology Date/Time Source Procedure Growth Status 12/14/18 20:11 Sputum Gram Stain - Final Resulted 12/14/18 20:11 Sputum Culture - Preliminary Gram Negative Bacillus 1 Gram Negative Bacillus 2 Resulted Laboratory Tests Test 12/17/18 04:47 White Blood Count 9.6 K/UL (4.8-10.8) Red Blood Count 3.13 M/UL (4.20-5.40) L Hemoglobin 8.8 G/DL (12.0-16.0) L Hematocrit 27.6 % (37.0-47.0) L Mean Corpuscular Volume 88 FL (80-99) Mean Corpuscular Hemoglobin 28.2 PG (27.0-31.0) Mean Corpuscular Hemoglobin Concent 32.0 G/DL (32.0-36.0) Red Cell Distribution Width 13.6 % (11.6-14.8) Platelet Count 345 K/UL (150-450) Mean Platelet Volume 4.2 FL (6.5-10.1) L Neutrophils (%) (Auto) 51.8 % (45.0-75.0) Lymphocytes (%) (Auto) 35.9 % (20.0-45.0) Monocytes (%) (Auto) 7.9 % (1.0-10.0) Eosinophils (%) (Auto) 3.9 % (0.0-3.0) H Basophils (%) (Auto) 0.6 % (0.0-2.0) Sodium Level 139 MMOL/L (136-145) Potassium Level 4.1 MMOL/L (3.5-5.1) Chloride Level 101 MMOL/L (98-107) Carbon Dioxide Level 33 MMOL/L (21-32) H Anion Gap 5 mmol/L (5-15) Blood Urea Nitrogen 31 mg/dL (7-18) H Creatinine 1.1 MG/DL (0.55-1.30) Estimat Glomerular Filtration Rate mL/min (>60) Glucose Level 132 MG/DL (74-106) H Calcium Level 9.7 MG/DL (8.5-10.1) Phosphorus Level 3.9 MG/DL (2.5-4.9) Magnesium Level 2.8 MG/DL (1.8-2.4) H Total Bilirubin 0.2 MG/DL (0.2-1.0) Aspartate Amino Transf (AST/SGOT) 28 U/L (15-37) Alanine Aminotransferase (ALT/SGPT) 83 U/L (12-78) H Alkaline Phosphatase 317 U/L (46-116) H Total Protein 9.0 G/DL (6.4-8.2) H Albumin 2.8 G/DL (3.4-5.0) L Globulin 6.2 g/dL Albumin/Globulin Ratio 0.5 (1.0-2.7) L Current Medications Medications (Trade) Dose Ordered Sig/Maicol Route PRN Reason Start Time Stop Time Status Last Admin Dose Admin Acetaminophen (Tylenol) 650 mg Q4H PRN GT fever 12/16/18 18:30 01/12/19 18:29 Albuterol/ Ipratropium (Albuterol/ Ipratropium) 3 ml Q4H PRN HHN Shortness of Breath 12/16/18 18:30 12/19/18 18:29 Albuterol/ Ipratropium (Albuterol/ Ipratropium) 3 ml TIDRT HHN 12/16/18 19:00 12/19/18 07:59 12/17/18 07:52 Amlodipine Besylate (Norvasc) 5 mg DAILY GT 12/16/18 20:00 01/15/19 19:59 12/16/18 20:27 Cefepime HCl 1 gm/ Dextrose 55 ml @ 110 mls/hr Q24H IVPB 12/17/18 12:00 12/21/18 11:59 Dextrose (Dextrose 50%) 25 ml Q30M PRN IV Hypoglycemia 12/16/18 18:30 01/15/19 18:29 Dextrose (Dextrose 50%) 50 ml Q30M PRN IV Hypoglycemia 12/16/18 18:30 01/15/19 18:29 Famotidine (Pepcid) 20 mg DAILY GT 12/17/18 09:00 01/12/19 08:59 12/17/18 08:58 Levetiracetam (Keppra) 1,000 mg Q12HR GT 12/16/18 21:00 01/12/19 08:59 12/17/18 08:57 Lorazepam (Ativan 2mg/ml 1ml) 0.5 mg Q4H PRN IV For Anxiety 12/16/18 18:30 12/19/18 18:29 Metoclopramide HCl (Reglan) 10 mg Q8H IVP 12/16/18 19:00 01/15/19 18:59 12/17/18 03:12 Ondansetron HCl (Zofran) 4 mg Q6H PRN IVP Nausea & Vomiting 12/16/18 18:30 01/11/19 18:29 Polyethylene Glycol (Miralax) 17 gm HSPRN PRN GT Constipation 12/16/18 21:00 01/15/19 20:59 Vancomycin HCl (Vanco rx to dose) 1 ea DAILY PRN MISC Per rx protocol 12/16/18 18:30 01/15/19 18:29 Vancomycin HCl 1 gm/Dextrose 275 ml @ 183.708 mls/hr Q24H IVPB 12/17/18 16:00 12/18/18 15:59 Zolpidem Tartrate (Ambien) 5 mg HSPRN PRN GT Insomnia 12/16/18 21:00 12/23/18 20:59 Bg Padilla MD Dec 17, 2018 10:28
[2018-12-17 12:00] VITALS: BP 119/64
[2018-12-17] MEDS ORDERED: Cefepime HCl 1 GM in D5W 55 ML IVPB SCH (12:00)
--- NOTE | 2018-12-17 12:16 | GI Progress Note ---
Assessment/Plan Problems: (1) Feeding by G-tube ICD Codes: Z93.1 - Gastrostomy status SNOMED: 322980527, 076353764, [id number] (2) Anemia ICD Codes: D64.9 - Anemia, unspecified SNOMED: 096274826, 314027947 Qualifiers: Qualified Codes: D64.9 - Anemia, unspecified (3) Gastroparesis ICD Codes: K31.84 - Gastroparesis SNOMED: 081510231 (4) Limited mobility ICD Codes: Z74.09 - Other reduced mobility SNOMED: 7334513 (5) Intractable nausea and vomiting ICD Codes: R11.2 - Nausea with vomiting, unspecified SNOMED: 903058511 Status: stable, progressing Status Narrative Discussed with Dr. Guzman. Assessment/Plan cont reglan 10mg IV ATC to increase GI motility, ok to dc medication once goal reached cont GTF's per RD to goal, patient tolerating with minimal residuals dc planning anemia work up OB stool r/o GI bleed ppi prn transfusions will follow with additional recommendations follow labs The patient was seen and examined at bedside and all new and available data was reviewed in the patients chart. I agree with the above findings, impression and plan. (Patient seen earlier today. Signature stamp does not reflect patient encounter time.). - Gary Guzman MD Subjective Subjective limited Objective Last 24 Hour Vital Signs Date Time Temp Pulse Resp B/P (MAP) Pulse Ox O2 Delivery O2 Flow Rate FiO2 12/17/18 09:00 Trach Collar 8.0 12/17/18 08:58 83 113/64 12/17/18 08:02 T-Piece 8.0 30 12/17/18 08:00 97.3 83 18 113/64 (80) 6 12/17/18 07:56 98 T-Piece 8.0 30 12/17/18 07:52 82 20 97 12/17/18 04:27 98.0 79 20 103/64 (77) 97 12/17/18 01:15 97 T-Piece 8.0 30 12/17/18 00:36 98.1 85 20 109/53 (71) 98 12/16/18 21:52 Trach Collar 6.0 12/16/18 20:27 79 129/71 12/16/18 20:12 97.7 79 20 129/71 (90) 100 12/16/18 20:00 80 18 98 T-Piece 8.0 30 78 18 96 12/16/18 20:00 96 T-Piece 8.0 30 12/16/18 16:00 6.0 30 12/16/18 16:00 96.9 74 20 112/79 (90) 97 12/16/18 16:00 74 12/16/18 13:14 77 20 100 T-Piece 8.0 30 71 20 99 12/16/18 13:14 100 T-Piece 8.0 30 Intake and Output 12/16/18 12/17/18 19:00 07:00 Intake Total 50 ml 310 ml Output Total 550 ml Balance -500 ml 310 ml Tube Feeding 50 ml 310 ml Output Urine Total 550 ml Laboratory Tests Test 12/17/18 04:47 White Blood Count 9.6 K/UL (4.8-10.8) Red Blood Count 3.13 M/UL (4.20-5.40) L Hemoglobin 8.8 G/DL (12.0-16.0) L Hematocrit 27.6 % (37.0-47.0) L Mean Corpuscular Volume 88 FL (80-99) Mean Corpuscular Hemoglobin 28.2 PG (27.0-31.0) Mean Corpuscular Hemoglobin Concent 32.0 G/DL (32.0-36.0) Red Cell Distribution Width 13.6 % (11.6-14.8) Platelet Count 345 K/UL (150-450) Mean Platelet Volume 4.2 FL (6.5-10.1) L Neutrophils (%) (Auto) 51.8 % (45.0-75.0) Lymphocytes (%) (Auto) 35.9 % (20.0-45.0) Monocytes (%) (Auto) 7.9 % (1.0-10.0) Eosinophils (%) (Auto) 3.9 % (0.0-3.0) H Basophils (%) (Auto) 0.6 % (0.0-2.0) Sodium Level 139 MMOL/L (136-145) Potassium Level 4.1 MMOL/L (3.5-5.1) Chloride Level 101 MMOL/L (98-107) Carbon Dioxide Level 33 MMOL/L (21-32) H Anion Gap 5 mmol/L (5-15) Blood Urea Nitrogen 31 mg/dL (7-18) H Creatinine 1.1 MG/DL (0.55-1.30) Estimat Glomerular Filtration Rate mL/min (>60) Glucose Level 132 MG/DL (74-106) H Calcium Level 9.7 MG/DL (8.5-10.1) Phosphorus Level 3.9 MG/DL (2.5-4.9) Magnesium Level 2.8 MG/DL (1.8-2.4) H Total Bilirubin 0.2 MG/DL (0.2-1.0) Aspartate Amino Transf (AST/SGOT) 28 U/L (15-37) Alanine Aminotransferase (ALT/SGPT) 83 U/L (12-78) H Alkaline Phosphatase 317 U/L (46-116) H Total Protein 9.0 G/DL (6.4-8.2) H Albumin 2.8 G/DL (3.4-5.0) L Globulin 6.2 g/dL Albumin/Globulin Ratio 0.5 (1.0-2.7) L Height (Feet): 5 Height (Inches): 4.00 Weight (Pounds): 160 General Appearance: alert Cardiovascular: normal rate Abdominal Exam: site Michelle Todd NP Dec 17, 2018 12:16
--- NOTE | 2018-12-17 12:47 | Pulmonology Progress Note ---
Assessment/Plan Problems: (1) Chronic respiratory failure (2) Anemia (3) Intractable nausea and vomiting (4) Leukocytosis (5) Chronic vegetative state (6) Feeding by G-tube (7) Feeding by G-tube (8) HTN (hypertension) (9) Limited mobility Assessment/Plan looks comfortable no more vomiting iv fluids anemia w/u in progress respiratory treatment f/u GI recommendations check sputum consider palliative and end of life care Subjective ROS Limited/Unobtainable: No Constitutional: Reports: no symptoms HEENT: Repors: no symptoms Allergies: Coded Allergies: CODEINE (Verified Allergy, Unknown, HIVES, 09/15/09) Objective Last 24 Hour Vital Signs Date Time Temp Pulse Resp B/P (MAP) Pulse Ox O2 Delivery O2 Flow Rate FiO2 12/17/18 09:00 Trach Collar 8.0 12/17/18 08:58 83 113/64 12/17/18 08:02 T-Piece 8.0 30 12/17/18 08:00 97.3 83 18 113/64 (80) 6 12/17/18 07:56 98 T-Piece 8.0 30 12/17/18 07:52 82 20 97 12/17/18 04:27 98.0 79 20 103/64 (77) 97 12/17/18 01:15 97 T-Piece 8.0 30 12/17/18 00:36 98.1 85 20 109/53 (71) 98 12/16/18 21:52 Trach Collar 6.0 12/16/18 20:27 79 129/71 12/16/18 20:12 97.7 79 20 129/71 (90) 100 12/16/18 20:00 80 18 98 T-Piece 8.0 30 78 18 96 12/16/18 20:00 96 T-Piece 8.0 30 12/16/18 16:00 6.0 30 12/16/18 16:00 96.9 74 20 112/79 (90) 97 12/16/18 16:00 74 12/16/18 13:14 77 20 100 T-Piece 8.0 30 71 20 99 12/16/18 13:14 100 T-Piece 8.0 30 Intake and Output 12/16/18 12/17/18 19:00 07:00 Intake Total 50 ml 310 ml Output Total 550 ml Balance -500 ml 310 ml Tube Feeding 50 ml 310 ml Output Urine Total 550 ml General Appearance: WD/WN HEENT: normocephalic, anicteric, status post trach Breasts: no masses Cardiovascular: regular rhythm Abdomen: soft, non tender, no mass Extremities: no cyanosis, no clubbing Microbiology Date/Time Source Procedure Growth Status 12/14/18 20:11 Sputum Gram Stain - Final Resulted 12/14/18 20:11 Sputum Culture - Preliminary Gram Negative Bacillus 1 Gram Negative Bacillus 2 Resulted Laboratory Tests 12/17/18 04:47: White Blood Count 9.6, Red Blood Count 3.13L, Hemoglobin 8.8L, Hematocrit 27.6L , Mean Corpuscular Volume 88, Mean Corpuscular Hemoglobin 28.2, Mean Corpuscular Hemoglobin Concent 32.0, Red Cell Distribution Width 13.6, Platelet Count 345, Mean Platelet Volume 4.2L, Neutrophils (%) (Auto) 51.8, Lymphocytes ( %) (Auto) 35.9, Monocytes (%) (Auto) 7.9, Eosinophils (%) (Auto) 3.9H, Basophils (%) (Auto) 0.6, Sodium Level 139, Potassium Level 4.1, Chloride Level 101, Carbon Dioxide Level 33H, Anion Gap 5, Blood Urea Nitrogen 31H, Creatinine 1.1, Estimat Glomerular Filtration Rate , Glucose Level 132H, Calcium Level 9.7 , Phosphorus Level 3.9, Magnesium Level 2.8H, Total Bilirubin 0.2, Aspartate Amino Transf (AST/SGOT) 28, Alanine Aminotransferase (ALT/SGPT) 83H, Alkaline Phosphatase 317H, Total Protein 9.0H, Albumin 2.8L, Globulin 6.2, Albumin/ Globulin Ratio 0.5L Current Medications Medications (Trade) Dose Ordered Sig/Maicol Route PRN Reason Start Time Stop Time Status Last Admin Dose Admin Acetaminophen (Tylenol) 650 mg Q4H PRN GT fever 12/16/18 18:30 01/12/19 18:29 Albuterol/ Ipratropium (Albuterol/ Ipratropium) 3 ml Q4H PRN HHN Shortness of Breath 12/16/18 18:30 12/19/18 18:29 Albuterol/ Ipratropium (Albuterol/ Ipratropium) 3 ml TIDRT HHN 12/16/18 19:00 12/19/18 07:59 12/17/18 12:11 Amlodipine Besylate (Norvasc) 5 mg DAILY GT 12/16/18 20:00 01/15/19 19:59 12/16/18 20:27 Cefepime HCl 1 gm/ Dextrose 55 ml @ 110 mls/hr Q24H IVPB 12/17/18 12:00 12/21/18 11:59 12/17/18 12:37 Dextrose (Dextrose 50%) 25 ml Q30M PRN IV Hypoglycemia 12/16/18 18:30 01/15/19 18:29 Dextrose (Dextrose 50%) 50 ml Q30M PRN IV Hypoglycemia 12/16/18 18:30 01/15/19 18:29 Famotidine (Pepcid) 20 mg DAILY GT 12/17/18 09:00 01/12/19 08:59 12/17/18 08:58 Levetiracetam (Keppra) 1,000 mg Q12HR GT 12/16/18 21:00 01/12/19 08:59 12/17/18 08:57 Lorazepam (Ativan 2mg/ml 1ml) 0.5 mg Q4H PRN IV For Anxiety 12/16/18 18:30 12/19/18 18:29 Metoclopramide HCl (Reglan) 10 mg Q8H IVP 12/16/18 19:00 01/15/19 18:59 12/17/18 12:37 Ondansetron HCl (Zofran) 4 mg Q6H PRN IVP Nausea & Vomiting 12/16/18 18:30 01/11/19 18:29 Polyethylene Glycol (Miralax) 17 gm HSPRN PRN GT Constipation 12/16/18 21:00 01/15/19 20:59 Zolpidem Tartrate (Ambien) 5 mg HSPRN PRN GT Insomnia 12/16/18 21:00 12/23/18 20:59 Alexa Phipps MD Dec 17, 2018 12:47
--- NOTE | 2018-12-17 14:07 | General Progress Note ---
Assessment/Plan Problem List: (1) Respiratory failure ICD Codes: J96.90 - Respiratory failure, unspecified, unspecified whether with hypoxia or hypercapnia SNOMED: 957295298 (2) HTN (hypertension) ICD Codes: I10 - Essential (primary) hypertension SNOMED: 83990882 (3) Leukocytosis ICD Codes: D72.829 - Elevated white blood cell count, unspecified SNOMED: 261146791, 971312357 (4) Anemia ICD Codes: D64.9 - Anemia, unspecified SNOMED: 871552287, 815038143 Qualifiers: Qualified Codes: D64.9 - Anemia, unspecified Status: stable, progressing Assessment/Plan: o2 pulm tx abx prn transfuse prn dc if clear by heme and id Subjective Constitutional: Reports: weakness Allergies: Coded Allergies: CODEINE (Verified Allergy, Unknown, HIVES, 09/15/09) All Systems: reviewed and negative except above Subjective trach aerosol asleep Objective Last 24 Hour Vital Signs Date Time Temp Pulse Resp B/P (MAP) Pulse Ox O2 Delivery O2 Flow Rate FiO2 12/17/18 12:00 97.0 80 20 119/64 (82) 98 12/17/18 09:00 Trach Collar 8.0 12/17/18 08:58 83 113/64 12/17/18 08:02 T-Piece 8.0 30 12/17/18 08:00 97.3 83 18 113/64 (80) 96 12/17/18 07:56 98 T-Piece 8.0 30 12/17/18 07:52 82 20 97 12/17/18 04:27 98.0 79 20 103/64 (77) 97 12/17/18 01:15 97 T-Piece 8.0 30 12/17/18 00:36 98.1 85 20 109/53 (71) 98 12/16/18 21:52 Trach Collar 6.0 12/16/18 20:27 79 129/71 12/16/18 20:12 97.7 79 20 129/71 (90) 100 12/16/18 20:00 80 18 98 T-Piece 8.0 30 78 18 96 12/16/18 20:00 96 T-Piece 8.0 30 12/16/18 16:00 6.0 30 12/16/18 16:00 96.9 74 20 112/79 (90) 97 12/16/18 16:00 74 Intake and Output 12/16/18 12/17/18 19:00 07:00 Intake Total 50 ml 310 ml Output Total 550 ml Balance -500 ml 310 ml Tube Feeding 50 ml 310 ml Output Urine Total 550 ml Laboratory Tests 12/17/18 04:47: White Blood Count 9.6, Red Blood Count 3.13L, Hemoglobin 8.8L, Hematocrit 27.6L , Mean Corpuscular Volume 88, Mean Corpuscular Hemoglobin 28.2, Mean Corpuscular Hemoglobin Concent 32.0, Red Cell Distribution Width 13.6, Platelet Count 345, Mean Platelet Volume 4.2L, Neutrophils (%) (Auto) 51.8, Lymphocytes ( %) (Auto) 35.9, Monocytes (%) (Auto) 7.9, Eosinophils (%) (Auto) 3.9H, Basophils (%) (Auto) 0.6, Sodium Level 139, Potassium Level 4.1, Chloride Level 101, Carbon Dioxide Level 33H, Anion Gap 5, Blood Urea Nitrogen 31H, Creatinine 1.1, Estimat Glomerular Filtration Rate , Glucose Level 132H, Calcium Level 9.7 , Phosphorus Level 3.9, Magnesium Level 2.8H, Total Bilirubin 0.2, Aspartate Amino Transf (AST/SGOT) 28, Alanine Aminotransferase (ALT/SGPT) 83H, Alkaline Phosphatase 317H, Total Protein 9.0H, Albumin 2.8L, Globulin 6.2, Albumin/ Globulin Ratio 0.5L Height (Feet): 5 Height (Inches): 4.00 Weight (Pounds): 160 General Appearance: lethargic EENT: normal ENT inspection Neck: normal alignment Cardiovascular: normal peripheral pulses, normal rate, regular rhythm Respiratory/Chest: chest wall non-tender, lungs clear, normal breath sounds Abdomen: normal bowel sounds, non tender, soft Extremities: normal inspection Edema: no edema noted Arm (L), no edema noted Arm (R), no edema noted Leg (L), no edema noted Leg (R), no edema noted Pedal (L), no edema noted Pedal (R), no edema noted Generalized Neurologic: motor weakness Skin: normal pigmentation, warm/dry Dustin Willis DO Dec 17, 2018 14:07
[2018-12-17] MEDS ORDERED: AMBIEN5 MG ORAL (15:31)
[2018-12-17] MEDS ORDERED: DUONEB 0.5-3(2.53 ML HHN (15:31)
[2018-12-17] MEDS ORDERED: MIRALAX17 G2 ORAL (15:31)
[2018-12-17 16:00] VITALS: BP 119/62
[2018-12-17] MEDS ORDERED: Vancomycin 1 GM in D5W 275 ML IVPB SCH (16:00)
--- NOTE | 2018-12-17 19:58 | Discharge Summary ---
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 Last hemoglobin at the facility was 7.5. Upon evaluation vital signs were stable. Oxygen 2 L provided via tracheal collar with pulse oximetry reading 100% patient was afebrile. Laboratory work-up revealed no leukocytosis hemoglobin 8.1 hematocrit 25.8 with MCV of 90 platelet count 317. Stable electrolytes. BUN 22, creatinine 1.1. Glucose 112. AST 176 ALT 308, alkaline phosphatase 488. Total protein 9.1. Albumin 2.7. EKG reveals sinus rhythm no acute ischemic changes. Chest x-ray revealed bilateral interstitial edema and tracheostomy. In emergency department patient received a dose of Lasix and admitted to telemetry floor for further management. CONSULTANTS: pulmonary Dr. Phipps ID specialist Dr. Padilla GI specialist Dr. Guzman sanitation technician/oncologist Dr. Orantes [facility] COURSE: [] Patient admitted to telemetry floor. Patient started on the IV fluids. Anemia work-up was consistent with anemia of chronic disease. First will be done in the emergency room was negative. Hemoglobin hematocrit for closely monitor with goal to keep hemoglobin above 7. Pulmonary toilet via with bronchodilator provided. Tracheostomy care provided. Echocardiogram revealed preserved ejection fraction of 60% with mild pulmonary hypertension and evident right ventricular systolic pressure of 45. proBNP 129. Patient received Lasix in emergency department. Strict aspiration precautions were maintained. G-tube feeding instituted.. SNF medication were continued. Venous duplex bilateral lower extremity revealed no evidence of acute DVT. Blood pressure was managed with calcium channel martha LFT were trending down. Hepatitis panel was Abdominal ultrasound revealed no acute findings. LFT trending down prior to discharge AST from 176 down to 28 and ALT from 308 down to 83. Alkaline phosphatase from 488 down to 317. Hepatitis panel was negative. Concerning elevated ESR and elevated protein serum protein electrophoresis was checked. Seizure precaution maintain Keppra continued. No evidence of seizure activity while in the hospital. TSH was within normal limits. Current dose of levothyroxine continued. Lipid panel revealed elevated total cholesterol and LDL. Consider to add statin when LFTs stabilized. GI prophylaxis provided. Supportive care provided. Dietary evaluation requested. The next day patient was congested with low-grade fever and leukocytosis. Daughter was in the bedside. Daughter confirms DNR status but all other but wants all other cleared to be done. Patient started on empiric antibiotics. Blood culture revealed staph epidermidis. Repeated blood culture on the next day were negative. Sputum culture revealed gram-negative bacilli 2 different species. Patient was follow-up with a chest x-ray which revealed reduced lung volumes and interstitial pulmonary opacities which could be from interstitial edema or pneumonia. Antibiotics provided as per ID recommendation for pneumonia. Initially positive blood culture were most likely contaminant repeated blood culture were negative. Leukocytosis resolved patient remained afebrile meticulous pulmonary toilet provided patient was suction as needed. GI specialist followed. Antiemetic provided [id number] to increase GI motility. Tube feeding provided as per tube feeding formula provided as per registered dietitian recommendation at goal rate. Patient tolerated tube feeding with minimal residual. GI prophylaxis provided. No need for transfusion. Prior to discharge hemoglobin 8.8 hematocrit 27.6. Anemia work- up was consistent with anemia of chronic disease. Stable B12 and folate. Serum protein electrophoresis revealed no evidence of abnormal protein bands. Nutritional protein supplements implemented with plan of care as per registered dietitian recommendation. Data Review Specialist followed. Patient had anemia of chronic disease due to underlying chronic medical issue was multifactorial. Anemia work-up was consistent with anemia of chronic disease. No evidence of hemolysis noted.. Per peripheral smear has been reviewed. Initial hypercalcemia on admission was potentially due to dehydration and resolved trending down patient clinically stabilized. Leukocytosis and fever resolved hemoglobin hematocrit stable patient was discharged on antibiotic to complete the course at the facility as per ID specialist recommendation. TSH was within normal limits current dose of levothyroxine continued. FINAL DIAGNOSES: Anemia of chronic disease Pneumonia possibly aspiration Chronic respiratory failure tracheostomy status History of CVA with aphasia Congestive heart failure Hypertension Hyperlipidemia Dysphagia PEG Elevated LFT improved Mild pulmonary hypertension Hypothyroidism Seizure disorder Protein calorie malnutrition DISCHARGE MEDICATIONS: See Medication Reconciliation list. DISCHARGE INSTRUCTIONS: Patient was discharged to the residential facility. Follow up with medical doctor at the facility. I have been assigned to dictate discharge summary for this account. I was not involved in the patient's management. Nenita Stewart NP Dec 17, 2018 19:58
== END 2018-12-17 17:35 | DRG 178 ==
LOC: EDBD 12:11 → EMR 12:50 → 2E 13:03 → EDBEDREQSVC 13:07 → EDBEDREQ 13:07 → 2E 12-14 17:03 → 4E 12-16 17:24
DX: J15.6 Pneumonia due to other Gram-negative bacteria (principal); Z43.1 Encounter for attention to gastrostomy; J96.10 Chronic respiratory failure, unspecified whether with hypoxia or hypercapnia; E46 Unspecified protein-calorie malnutrition; R40.3 Persistent vegetative state; J69.0 Pneumonitis due to inhalation of food and vomit; I50.9 Heart failure, unspecified; I69.320 Aphasia following cerebral infarction; I69.391 Dysphagia following cerebral infarction; R13.10 Dysphagia, unspecified; Z43.0 Encounter for attention to tracheostomy; G30.9 Alzheimer's disease, unspecified; F02.80 Dementia in other diseases classified elsewhere, unspecified severity, without behavioral disturbance, psychotic disturbance, mood disturbance, and anxiety; I11.0 Hypertensive heart disease with heart failure; Z88.6 Allergy status to analgesic agent; E03.9 Hypothyroidism, unspecified; D63.8 Anemia in other chronic diseases classified elsewhere; Z66 Do not resuscitate; E78.5 Hyperlipidemia, unspecified; I27.20 Pulmonary hypertension, unspecified; G40.909 Epilepsy, unspecified, not intractable, without status epilepticus; K31.84 Gastroparesis; E83.52 Hypercalcemia
CPT/HCPCS: 36415; 71045; 76700; 80048; 80053; 80061; 80202; 82378; 82607; 82746; 82962; 83540; 83550; 83605; 83615; 83735; 83880; 84100; 84165; 84443; 85007; 85025; 85044; 85060; 85610; 85651; 85730; 86705; 86709; 86803; 86850; 86900; 86901; 86920; 87040; 87070; 87081; 87181; 87205; 87340; 93005; 93306; 93970; 94640; 96374; 97802; 99285; J2405; J2765; J7620

== ENCOUNTER 2018-12-22 21:08 | Inpatient (IN) | payer MEDICARE, MEDICAID ==
[~2018-12-22] VITALS: Ht 144.8 cm; Wt 71.2 kg
[~2018-12-22 21:08] MED LIST changes: +ADULT WAL-100 MG/5 M ORAL; +AMBIEN5 MG ORAL; +AMLODIPINE BESY10 MG ORAL; +CEFEPIME-D1 GM/50 ML IVPB; +DUONEB 0.5-3(2.53 ML HHN; +FAMOTIDINE20 MG ORAL; +FUROSEMIDE20 M1 ORAL; +HEPARIN 51 UNIT/1 M IV; +HEPARIN SO5000 UNIT2 SUBQ; +LEVETIRACE100 MG/1 M GT; +LEVETIRACE1000 MG/10 IV; +LEVOTHYROXINE100 MC1 IV; +LEVOTHYROXINE75 MCG GT; +METOCLOPRA10 MG/10 M ORAL; +MIRALAX17 G2 ORAL; +PAPAYA ENZYME1 EACH PO; +SODIUM CARBONATE1 GM MC; +VANCOMYCIN1 GM/200 M IV
[2018-12-22 21:21] VITALS: BP 121/76
--- NOTE | 2018-12-22 21:28 | Emergency Room Report ---
History of Present Illness General Chief Complaint: Malfunctioning Gastric Tube Source: Family Member Present Illness HPI Patient is an 83-year-old female sent in from nursing facility for malfunctioning jejunostomy tube. Patient had prior history of being G and J- tube dependent. She reportedly had multiple changes in the past. She is tracheostomy dependent and is chronically debilitated. Patient's nursing facility sent the patient because his J-tube had become completely clogged. Allergies: Coded Allergies: CODEINE (Verified Allergy, Unknown, HIVES, 09/15/09) Patient History Past Medical History: see triage record Last Menstrual Period: na Reviewed Nursing Documentation: PMH: Agreed; PSxH: Agreed Nursing Documentation-PMH Hx Cardiac Problems: Yes - CHF, HYPOTHYRDOISM, Hx Cancer: Yes Hx Gastrointestinal Problems: Yes - GERD, GASTROSTOMY, Hx Neurological Problems: Yes - alzheimer Hx Cerebrovascular Accident: Yes - HX OF CVA Hx Transient Ischemic Attacks: Yes - DR. Coir GALARZA STATED POSSIBLE TIA Hx Dementia: Yes Hx Alzheimer's Disease: Yes Hx Seizures: Yes - 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 Hx Memory Loss: Yes Hx Aphasia: Yes Review of Systems All Other Systems: limited - by poor historian and altered mental status Physical Exam Vital Signs Date Time Temp Pulse Resp B/P (MAP) Pulse Ox O2 Delivery O2 Flow Rate FiO2 12/22/18 21:09 97.5 88 24 160/79 (106) 100 Trach Collar 3.0 Sp02 EP Interpretation: reviewed, normal General Appearance: mild distress, Chronically Ill Head: atraumatic ENT: normal ENT inspection, normal voice Neck: supple, no bony tend, limited range of motion Respiratory: normal inspection, no respiratory distress, no retraction Cardiovascular #1: regular rate, rhythm, no edema Gastrointestinal: normal inspection, soft, no guarding, no hernia, other - leaking from stoma Genitourinary: no CVA tenderness Musculoskeletal: decreased range of motion Neurologic: alert, other - contracted Psychiatric: normal inspection, judgement/insight normal, mood/affect normal Skin: other Medical Decision Making Diagnostic Impression: Primary Impression: Malfunction of jejunostomy tube Additional Impressions: Anemia Chronic vegetative state Tracheostomy status ER Course Patient presented for jejunostomy malfunction. Differential diagnosis include was not limited to malposition, clogging, leaking among others. Per staff at patient's facility gastric tube had been functioning normally. The jejunostomy tube had become obstructed. Laboratory was ordered and patient's was discussed with Dr. Chan for inpatient management due to primary care physician. Patient will likely need further work-up for gastroparesis if patient is to only have G-tube placement. Labs Test 12/22/18 22:30 White Blood Count 11.7 K/UL (4.8-10.8) Red Blood Count 2.89 M/UL (4.20-5.40) Hemoglobin 8.3 G/DL (12.0-16.0) Hematocrit 25.8 % (37.0-47.0) Mean Corpuscular Volume 89 FL (80-99) Mean Corpuscular Hemoglobin 28.5 PG (27.0-31.0) Mean Corpuscular Hemoglobin Concent 32.0 G/DL (32.0-36.0) Red Cell Distribution Width 12.8 % (11.6-14.8) Platelet Count 236 K/UL (150-450) Mean Platelet Volume 4.4 FL (6.5-10.1) Neutrophils (%) (Auto) 65.6 % (45.0-75.0) Lymphocytes (%) (Auto) 27.2 % (20.0-45.0) Monocytes (%) (Auto) 4.4 % (1.0-10.0) Eosinophils (%) (Auto) 2.3 % (0.0-3.0) Basophils (%) (Auto) 0.6 % (0.0-2.0) Prothrombin Time 10.1 SEC (9.30-11.50) Prothromb Time International Ratio 0.9 (0.9-1.1) Activated Partial Thromboplast Time 28 SEC (23-33) Sodium Level 142 MMOL/L (136-145) Potassium Level 4.0 MMOL/L (3.5-5.1) Chloride Level 103 MMOL/L (98-107) Carbon Dioxide Level 35 MMOL/L (21-32) Anion Gap 5 mmol/L (5-15) Blood Urea Nitrogen 38 mg/dL (7-18) Creatinine 1.0 MG/DL (0.55-1.30) Estimat Glomerular Filtration Rate mL/min (>60) Glucose Level 92 MG/DL (74-106) Calcium Level 9.6 MG/DL (8.5-10.1) Total Bilirubin 0.3 MG/DL (0.2-1.0) Aspartate Amino Transf (AST/SGOT) 32 U/L (15-37) Alanine Aminotransferase (ALT/SGPT) 57 U/L (12-78) Alkaline Phosphatase 234 U/L (46-116) Total Protein 8.6 G/DL (6.4-8.2) Albumin 2.8 G/DL (3.4-5.0) Globulin 5.8 g/dL Albumin/Globulin Ratio 0.5 (1.0-2.7) Last Vital Signs Date Time Temp Pulse Resp B/P (MAP) Pulse Ox O2 Delivery O2 Flow Rate FiO2 12/22/18 21:09 97.5 88 24 160/79 (106) 100 Trach Collar 3.0 Status: unchanged Disposition: ADMITTED INPATIENT Condition: Stable Lokesh Maria MD Dec 22, 2018 21:28
--- NOTE | 2018-12-22 21:39 | NUR ---
ED Nurse Note: brought in by ELLE [facility] for clogged [facility]. Pt is on T piece with 3Liter oxygen. sp02 100%. pt is non verabl. openes eyes sponyaneously. VSS
--- NOTE | 2018-12-22 22:34 | NUR ---
ED Nurse Note: unable to draw blood. called range technician. label designer is currently at bedside
--- NOTE | 2018-12-22 22:41 | NUR ---
ED Nurse Note: Blood sample sent down to lab
[2018-12-22 23:03] LABS: BASOPHILS % (AUTO) 0.6 % (0.0-2.0); EOSINOPHILS % (AUTO) 2.3 % (0.0-3.0); HEMATOCRIT 25.8 % (37.0-47.0); HEMOGLOBIN 8.3 G/DL (12.0-16.0); LYMPHOCYTES % (AUTO) 27.2 % (20.0-45.0); MEAN CORPUSCULAR VOLUME 89 FL (80-99); MONOCYTES % (AUTO) 4.4 % (1.0-10.0); NEUTROPHILS % (AUTO) 65.6 % (45.0-75.0); PLATELET COUNT 236 K/UL (150-450); RED BLOOD COUNT 2.89 M/UL (4.20-5.40); RED CELL DISTRIBUTION WIDTH 12.8 % (11.6-14.8); WHITE BLOOD COUNT 11.7 K/UL (4.8-10.8)
[2018-12-22 23:15] LABS: ALANINE AMINOTRANSFERASE 57 U/L (12-78); ALBUMIN 2.8 G/DL (3.4-5.0); ALBUMIN/GLOBULIN RATIO 0.5 (1.0-2.7); ALKALINE PHOSPHATASE 234 U/L (46-116); ANION GAP 5 mmol/L (5-15); ASPARTATE AMINO TRANSFERASE 32 U/L (15-37); BILIRUBIN,TOTAL 0.3 MG/DL (0.2-1.0); CALCIUM 9.6 MG/DL (8.5-10.1); CARBON DIOXIDE 35 MMOL/L (21-32); CHLORIDE 103 MMOL/L (98-107); SODIUM 142 MMOL/L (136-145)
[2018-12-22 23:18] LABS: INR 0.9 (0.9-1.1)
[2018-12-22 23:30] LABS: BLOOD UREA NITROGEN 38 mg/dL (7-18)
[2018-12-22] MEDS ORDERED: FOLIC ACID0.4 MG GT (23:43)
[2018-12-22] MEDS ORDERED: ZOFRAN4 M1 GT (23:43)
--- NOTE | 2018-12-22 23:43 | NUR ---
ED Nurse Note: pt brought up to room 236-2 accomapnied by RN and LEATHER WORKER via jairo in stable condition. monitor box is on. IV site to right FA 20g intact. Report given to JEANNINE Britt. Pt has no belongings.
--- NOTE | 2018-12-22 23:50 | NUR ---
NURSE NOTES: Pt admitted fro Er. Given report from JEANNINE Brandon. Pt is obtunded and awake and confused. Non-verbal. On T-piece with O2 3L and SaO2 100% noted. Given tracheal suction and whitish thick secretion suctioned. Provided oral care. IV site intact and no sign of infiltration. Pt has JG tube but malfunctioning. Pt has old scar on sacral and both buttock area. Changed position. Noted brown color soft BM. Cleaned Pt and applied lotion and cream. Given admission instruction to family. Applied Tele monitor. Left message to Dr. Chan for admission order. Placed fall precaution. Will continue to care plan.
[2018-12-23] VITALS: BP 132/68
[2018-12-23] MEDS ORDERED: FAMOTIDINE20 MG GT (00:57)
[2018-12-23] MEDS ORDERED: ZOLPIDEM TARTRAT5 MG GT (00:57)
[2018-12-23] MEDS ORDERED: FOLIC ACID1 MG GT (00:57)
[2018-12-23] MEDS ORDERED: MIRALAX17 G2 GT (00:57)
[2018-12-23] MEDS ORDERED: AMLODIPINE BESY10 MG GT (00:57)
[2018-12-23] MEDS ORDERED: KEPPRA750 MG GT (00:57)
[2018-12-23] MEDS ORDERED: PROMOD946 ML GT (00:57)
[2018-12-23] MEDS ORDERED: FERROUS SU220 MG/51 GT (00:57)
[2018-12-23] MEDS ORDERED: Zolpidem 5mg tab GT PRN ×2 (03:30→21:00)
--- NOTE | 2018-12-23 03:35 | NUR ---
NURSE NOTES: Get call back from Dr. Chan and new order received. Will continue to care plan.
[2018-12-23 04:00] VITALS: BP 146/90
--- NOTE | 2018-12-23 07:46 | NUR ---
HAND-OFF: Report given to JEANNINE Shaw. Pt is resting on the bed and no sign of acute cardio/respiratory distress noted. Dr. Vaughan visited assessed Pt and he will do bedside G-tube replacement today or tomorrow. Endorsed incoming nurse.
[2018-12-23 08:00] VITALS: BP 138/69
--- NOTE | 2018-12-23 08:00 | NUR ---
NURSE NOTES: Patients transferred to Floor From [facility]. Received report from Casimiro Santacruz. Patient is awake in bed. Doesnt follow command. Tracks occasionally. Withdraws to pain. Continuous telemetry monitoring SR. #6 tach, Cuffed deflated connected to T piece with Fi02 50%. Scattered ronchi. White sputum. O2 Sat 100 %. No s/s of distress will follow.
[2018-12-23] MEDS ORDERED: levETIRAcetam 500mg/5ml Liquid GT SCH (09:00)
[2018-12-23] MEDS ORDERED: Miralax 17gm pkt GT SCH (09:00)
--- NOTE | 2018-12-23 09:42 | NUR ---
NURSE NOTES: Dr. Chan on the floor for rounds. Seen and examined patient . Received order to transfer patient to [facility]. noted and carried out. will follow.
--- NOTE | 2018-12-23 10:22 | NUR ---
TRANSFER TO FLOOR: Patient transferred to Room 237 bed 2, per Dr. Chan's order. Report given to Casimiro Stiles. Plan of care endorsed.
--- NOTE | 2018-12-23 10:30 | NUR ---
NURSE NOTES: Received report from Ronn Munguia RN. Patient awake in bed, nonverbal. Receiving O2 via T-piece @ 8L/min, FiO2 35%, no s/s of respiratory distress noted. GJ tube in place, patient remains NPO. Right forearm 20g IV site infusing NS @ 100 cc/hr, asymptomatic. Skin intact. Bed locked in lowest position with side rails up x 3. All needs attended to. Call light within reach. Will continue to monitor.
--- NOTE | 2018-12-23 11:10 | NUR ---
CASE MANAGEMENT:REVIEW 83 YR OLD MALE BIBA FROM [facility] CC: MALFUNCTIONING GASTRIC TUBE SI: MALFX JEJUNOSTOMY TUBE. ANEMIA 97.6 88 24 160/79 100% ON TRACH COLLAR WBC+11.7 H/H-8.3/25.8 BUN+38 IS: 1L NS BOLUS CXR : TO STEP DOWN UNIT
--- NOTE | 2018-12-23 11:43 | Diagnostic Imaging Report ---
Indication: Dyspnea Comparison: 12/15/2018 A single view chest radiograph was obtained. Findings: Pulmonary vascular congestion may be present. Tracheostomy noted. Heart size is normal. The findings are stable and unchanged. IMPRESSION: No change from the prior examination. Some degree of pulmonary vascular congestion may be present. Correlate clinically
[2018-12-23 12:00] VITALS: BP 125/78
--- NOTE | 2018-12-23 13:27 | NUR ---
RD ASSESSMENT & RECOMMENDATIONS SEE CARE ACTIVITY FOR COMPLETE ASSESSMENT DAILY ESTIMATED NEEDS: Needs based on Pulmonary 59.8kg adj 25-30 kcals/kg 0947-0817 total kcals 1-1.5 g protein/kg 60-90 g total protein 25-30 mL/kg 9489-6570 total fluid mLs NUTRITION DIAGNOSIS: Swallowing difficulty r/t respiratory status as evidenced by pt on t-piece, GJ tube dependent, currently NPO for malfunctioning Jtube. CURRENT TF:NPO ENTERAL NUTRITION RECOMMENDATIONS: Jevity 1.2 @ 55ml/hr x 24 hrs to provide 1320ml, 1584kcal, 73g prot, 1060ml free water - When medically appropriate, initiate Jevity 1.2 @ 25ml/hr x 6hrs - Advance 10ml q 4-6 hrs as tolerated to goal rate. - Flush per MD/ HOB over 30 degrees ADDITIONAL RECOMMENDATIONS: 1) SNF wt: 151 lbs / 68.6kg (12/08/18), HT per dtr=5'5" -> re-calibrate bedscale 2) Monitor lytes, replete as needed . . .
[2018-12-23 16:00] VITALS: BP 146/79
--- NOTE | 2018-12-23 16:00 | History and Physical Report ---
DATE OF ADMISSION: 12/22/2018 REASON FOR ADMISSION: Malfunctioning J-tube. HISTORY OF PRESENT ILLNESS: This is an 83-year-old female, recently transferred over [facility]. The patient was noted to have a malfunctioning J-tube. The patient with history of G-tube and J-tube placement. The patient is ventilator dependent, tracheostomy dependent, chronically debilitated, chronically bed-bound. History obtained and chart reviewed. The patient's care discussed and reviewed. The patient admitted to [facility]. GI has been contacted. The patient unable to give much in the way of history. The history is obtained through chart review and discussion with the ER physician, [facility] chart. PAST MEDICAL HISTORY: Notable for congestive heart failure, hypothyroidism, reflux, G-tube, dementia, CVA, history of seizures, functional quadriplegic, anemia. MEDICATIONS: Reviewed. ALLERGIES: Reviewed. REVIEW OF SYSTEMS: Unobtainable due to the patient's present state. PHYSICAL EXAMINATION: GENERAL: The patient is chronically ill female. VITAL SIGNS: Pulse 90 to 95, respirations 20, blood pressure 132/68, sats 100%. HEENT: Overall negative. NECK: Supple. Tracheostomy is midline. Carotids 2+. LUNGS: With scattered rhonchi. Moderate air entry. No wheezes. CARDIAC: S1, S2. Regular rate and rhythm without murmurs, rubs, gallops. ABDOMEN: Soft, nondistended. There is leaking from the stoma site. EXTREMITIES: No cyanosis or clubbing. The patient is contracted. NEUROLOGICAL: Poor level of consciousness. Difficult to assess. Poor response to pain. LABORATORY DATA: Reviewed. Sodium 142, bicarbonate 35, BUN 38, creatinine 1, albumin is 2.8. White cell count 11.7, hemoglobin 8.3, hematocrit 25.8. IMPRESSION: Malfunctioning J-tube, chronic vegetative state, respiratory failure, tracheostomy, minimal leukocytosis, anemia, mild azotemia, moderate protein-calorie malnutrition, chronic encephalopathy, hypothyroidism. RECOMMENDATIONS: Supportive care. GI evaluation to assist with J-tube. Resume [facility] medications. Resume seizure medications. Protein supplementation. Resume feedings when cleared by GI. IV hydration for now and monitor clinically for further changes and interventions. Amaury Chan M.D. DR: SUMA JOB#: [id number] CC: LITA
--- NOTE | 2018-12-23 16:53 | NUR ---
NURSE NOTES: G-tube replacement procedure explained to patient's daughter Floresita Horton by Dr. Vaughan. Floresita agrees to the bedside procedure and consent was signed and witnessed.
--- NOTE | 2018-12-23 19:00 | History and Physical Report ---
DATE OF ADMISSION: 12/22/2018 DATE AND TIME SEEN: 12/23/2018 at 1 p.m. CONSULTANTS: 1. Amaury Chan M.D. 2. Gary Guzman M.D. CHIEF COMPLAINT: Respiratory failure, tube malfunction. BRIEF HISTORY: This is an 83-year-old female from [facility], presented with above-mentioned diagnoses, seen in the ER, admitted to step-down for further treatment. Currently, trach, vent, altered, lethargic in bed, nonverbal. REVIEW OF SYSTEMS: Unavailable. PAST MEDICAL HISTORY: Includes respiratory failure, CHF, GERD, Alzheimer's, CVA. PAST SURGICAL HISTORY: G-tube and trach. ALLERGIES: Codeine. SOCIAL HISTORY: No smoking. No alcohol. No intravenous drug abuse. FAMILY HISTORY: Noncontributory. PHYSICAL EXAMINATION: GENERAL: Trach, vent, altered, lethargic in bed, nonverbal. VITAL SIGNS: Temperature 97 degrees, pulse 92, respirations 17, blood pressure 125/78. CARDIOVASCULAR: No murmur. LUNGS: Distant and clear. ABDOMEN: Positive bowel sounds. Nontender. Nondistended. EXTREMITIES: No cyanosis, clubbing, or edema. NEUROLOGIC: The patient is flaccid in bed, not following directions. LABORATORY AND DIAGNOSTIC DATA: Labs at this time show white count 11.7, hemoglobin and hematocrit 8/25. BMP shows CO2 35, BUN 38. INR is 0.9, PTT 28. MEDICATIONS: Include amlodipine, famotidine, folate, Lotensin, zolpidem, Zofran. ASSESSMENT: Respiratory failure, hypertension, tube malfunction, anemia, CHF, GERD, Alzheimer's, CVA. PLAN: 1. O2 and pulmonary treatment. 2. Antibiotic per Infectious Disease. 3. Blood pressure control. 4. Dietary followup. 5. GI followup. 6. CBC, BMP in the morning. 7. Dietary eval. Dustin Willis D.O. DR: EVERTON JOB#: [id number] CC:
--- NOTE | 2018-12-23 19:09 | NUR ---
HAND-OFF: Report given to Ronn Wadsworth RN.
--- NOTE | 2018-12-23 19:10 | NUR ---
NURSE NOTES: Received patient from JEANNINE David. patient is observed resting in bed, nonverbal, no s/sx of pain noted at this time. patient has T-piece: Shiley: 6, FiO2: 35%, 8 L/min. no s/sx of respiratory distress noted at this time. GJ tube is patent and intact, patient is currently NPO. IV site is patent and intact, running fluids at prescribed rate. bed in lowest position and locked, siderails up X3, call light within reach. will continue to monitor.
[2018-12-23 20:00] VITALS: BP 142/64
[2018-12-23] MEDS: Albuterol ud Inhalation HHN SCH ×2 (20:03→23:23)
[2018-12-23] MEDS: levETIRAcetam 500mg/5ml Liquid GT SCH (21:31)
--- NOTE | 2018-12-23 21:52 | General Progress Note ---
Assessment/Plan Assessment/Plan: Assessment - dysphagia, s/p GT - s/p G to J conversion at outside hospital - Resp failure, s/p trach - anemia - OBS Recommendations - Gastrostomy feeding trial - use G port - change to basic G tube in am - monitor residuals - elevate HOB - can consider G to J conversion if fails G port feeds Thank you Celio Vaughan MD Subjective Allergies: Coded Allergies: CODEINE (Verified Allergy, Unknown, HIVES, 09/15/09) Objective Last 24 Hour Vital Signs Date Time Temp Pulse Resp B/P (MAP) Pulse Ox O2 Delivery O2 Flow Rate FiO2 12/23/18 20:04 98 T-Piece 10.0 35 12/23/18 20:04 75 18 100 T-Piece 6.0 35 78 18 100 12/23/18 20:00 97.5 78 20 142/64 (90) 98 12/23/18 20:00 8.0 35 12/23/18 16:00 97.7 78 18 146/79 (101) 100 12/23/18 16:00 6.0 35 12/23/18 15:45 77 12/23/18 14:01 98 T-Piece 10.0 35 12/23/18 12:00 6.0 35 12/23/18 12:00 97.5 82 17 125/78 (94) 100 12/23/18 11:32 73 12/23/18 09:00 99 138/69 12/23/18 09:00 T-piece 10.0 12/23/18 08:41 98 T-Piece 10.0 35 12/23/18 08:00 97.7 99 20 138/69 (92) 97 12/23/18 08:00 90 12/23/18 08:00 10.0 35 12/23/18 04:00 78 12/23/18 04:00 98.2 98 20 146/90 (108) 100 12/23/18 00:38 98 Cool Aerosol 10.0 35 12/23/18 00:30 T-piece 12/23/18 00:00 98.2 95 20 132/68 (89) 100 12/23/18 00:00 10.0 35 12/22/18 23:52 96 12/22/18 23:43 98.4 79 20 128/71 99 T-piece 3.0 Intake and Output 12/22/18 12/23/18 19:00 07:00 Intake Total 325 ml Output Total 2 ml Balance 323 ml Intake Oral 0 ml IV Total 325 ml Output Urine Total 1 ml Stool Total 1 ml # Bowel Movements 1 Laboratory Tests 12/22/18 22:30: White Blood Count 11.7H, Red Blood Count 2.89L, Hemoglobin 8.3L, Hematocrit 25.8L, Mean Corpuscular Volume 89, Mean Corpuscular Hemoglobin 28.5, Mean Corpuscular Hemoglobin Concent 32.0, Red Cell Distribution Width 12.8, Platelet Count 236, Mean Platelet Volume 4.4L, Neutrophils (%) (Auto) 65.6, Lymphocytes ( %) (Auto) 27.2, Monocytes (%) (Auto) 4.4, Eosinophils (%) (Auto) 2.3, Basophils (%) (Auto) 0.6, Prothrombin Time 10.1, Prothromb Time International Ratio 0.9, Activated Partial Thromboplast Time 28, Sodium Level 142, Potassium Level 4.0, Chloride Level 103, Carbon Dioxide Level 35H, Anion Gap 5, Blood Urea Nitrogen 38H, Creatinine 1.0, Estimat Glomerular Filtration Rate , Glucose Level 92, Calcium Level 9.6, Total Bilirubin 0.3, Aspartate Amino Transf (AST/SGOT) 32, Alanine Aminotransferase (ALT/SGPT) 57, Alkaline Phosphatase 234H, Total Protein 8.6H, Albumin 2.8L, Globulin 5.8, Albumin/Globulin Ratio 0.5L Height (Feet): 4 Height (Inches): 9.00 Weight (Pounds): 150 Celio Vaughan MD Dec 23, 2018 21:52
[2018-12-24] VITALS: BP 142/78
[2018-12-24] MEDS: Albuterol ud Inhalation HHN SCH ×6 (03:06→23:30)
[2018-12-24 04:00] VITALS: BP 139/61
--- NOTE | 2018-12-24 05:00 | Consultation ---
DATE OF CONSULTATION: 12/23/2018 NOTE: UNCLEAR AUDIO GASTROENTEROLOGY CONSULTATION CONSULTING PHYSICIAN: Celio Vaughan M.D. REFERRING PHYSICIAN: Amaury Chan M.D. CHIEF COMPLAINT: I was asked to see this patient by Dr. Amaury Chan and Dr. Dustin Willis for jejunostomy dysfunction. HISTORY OF PRESENT ILLNESS: The patient is an unfortunate 83-year-old woman from a custodial, who was brought in due to jejunostomy occlusion. The patient is unable to provide much history and therefore most of the information is only available from the chart and also discussion with the patient's family. The patient apparently has had some difficulty with gastrostomy feeding and therefore gastrostomy feeding was converted to jejunostomy. Although having discussion with the patient's family, it is unclear whether she actually had aspiration. Eventually, the patient has chronic respiratory failure and has undergone tracheostomy placement. She is bedbound and contracted. Most of the remaining medical information is gathered from the chart. PAST MEDICAL HISTORY: History of congestive heart failure, hypothyroidism, gastroesophageal reflux, status post gastrostomy tube/gastrostomy to jejunostomy conversion, dementia, stroke, history of seizures, functional quadriplegia, anemia, and bedbound state. FAMILY HISTORY: Noncontributory. SOCIAL HISTORY: The patient resides in a custodial. ALLERGIES: None. REVIEW OF SYSTEMS: Unobtainable. PHYSICAL EXAMINATION: GENERAL: Debilitated woman, seen in her room. HEENT: Normocephalic and atraumatic. NECK: Shows tracheostomy catheter. CHEST: Revealed coarse breath sounds. CARDIOVASCULAR: Revealed regular rate. ABDOMEN: Soft, obese with good bowel sounds. Gastrojejunostomy catheter was examined. The jejunostomy port was indeed completely occluded. The gastrostomy port was patent. EXTREMITIES: Revealed some contractures. LABORATORY DATA: Noted. ASSESSMENT: This patient presents with a jejunostomy port conversion, although the gastrostomy port is functional. I discussed the patient's care with her child, Chika, who was concerned about the multiple replacements done for the past few months. The patient apparently has had four jejunostomy catheter replacements due to occlusion ever since this was placed in August. I am not certain if the patient had any clear evidence of aspiration from the description that daughter gives me. I have offered the daughter evaluation where the patient can be feed with her gastrostomy port and the residuals monitored closely. Should she tolerate feeding tube gastrostomy port and the gastrostomy may be sufficient. The possibility of Reglan was raised with the daughter who was concerned about the possible side effects. RECOMMENDATIONS: 1. Resume tube feedings through the gastrostomy port. 2. gastrostomy catheter care. 3. Monitor residuals. 4. Elevate head of the bed. 5. If tube feeding intolerance noted then the patient is to undergo another jejunostomy conversion. Thank you for asking me to participate in the care of this patient. Celio Vaughan M.D. DR: CHARANJIT JOB#: [id number] CC: LITA
[2018-12-24 05:08] LABS: HEMATOCRIT 22.6 % (37.0-47.0); HEMOGLOBIN 7.2 G/DL (12.0-16.0); MEAN CORPUSCULAR VOLUME 89 FL (80-99); PLATELET COUNT 241 K/UL (150-450); RED BLOOD COUNT 2.55 M/UL (4.20-5.40); RED CELL DISTRIBUTION WIDTH 14.1 % (11.6-14.8); WHITE BLOOD COUNT 12.9 K/UL (4.8-10.8)
[2018-12-24 06:05] LABS: ANION GAP 12 mmol/L (5-15); BLOOD UREA NITROGEN 23 mg/dL (7-18); CALCIUM 9.1 MG/DL (8.5-10.1); CARBON DIOXIDE 24 MMOL/L (21-32); CHLORIDE 109 MMOL/L (98-107); CREATININE 0.8 MG/DL (0.55-1.30); POTASSIUM 4.1 MMOL/L (3.5-5.1); SODIUM 145 MMOL/L (136-145)
--- NOTE | 2018-12-24 07:27 | NUR ---
NURSE NOTES: Received report JEANNINE narvaez,patient being suctioned Addendum: 12/24/18 at 0906 by Aileen KAMARA RN on trache collar,with thick secretions,head 30 degrees,incontinent on purewick
--- NOTE | 2018-12-24 07:39 | NUR ---
HAND-OFF: Report given to JEANNINE Vieira. patient is in stable condition.
[2018-12-24 08:00] VITALS: BP 151/75
--- NOTE | 2018-12-24 08:48 | NUR ---
NURSE NOTES: Dr. Chan notified hgb 7.2/22.6,WBC- 12.9 patient observation,with orders 2 units PRBC-blood bank called will order in [facility] Dr. Vaughan notified patient for discharge after G tube placement,patient has medications Thru g tube
--- NOTE | 2018-12-24 09:30 | General Progress Note ---
Assessment/Plan Problem List: (1) Malfunction of jejunostomy tube ICD Codes: K94.13 - Enterostomy malfunction SNOMED: 726533268, 476888403 (2) Leukocytosis ICD Codes: D72.829 - Elevated white blood cell count, unspecified SNOMED: 858113013, 914394710 (3) Respiratory failure ICD Codes: J96.90 - Respiratory failure, unspecified, unspecified whether with hypoxia or hypercapnia SNOMED: 845577518 (4) HTN (hypertension) ICD Codes: I10 - Essential (primary) hypertension SNOMED: 25308371 (5) Feeding by G-tube ICD Codes: Z93.1 - Gastrostomy status SNOMED: 385320456, 601199563, 240683800 (6) Chronic respiratory failure ICD Codes: J96.10 - Chronic respiratory failure, unspecified whether with hypoxia or hypercapnia SNOMED: 54500718 (7) Feeding by G-tube ICD Codes: Z93.1 - Gastrostomy status SNOMED: 414663154, 445154831, 336173259 Status: stable, progressing Assessment/Plan: o2 pulm tx trach care gi f/u cbc bmp am Subjective Constitutional: Reports: weakness Allergies: Coded Allergies: CODEINE (Verified Allergy, Unknown, HIVES, 09/15/09) All Systems: reviewed and negative except above Subjective trach aerosol asleep Objective Last 24 Hour Vital Signs Date Time Temp Pulse Resp B/P (MAP) Pulse Ox O2 Delivery O2 Flow Rate FiO2 12/24/18 08:58 T-piece 8.0 12/24/18 08:00 98.6 84 20 151/75 (100) 100 12/24/18 08:00 10.0 35 12/24/18 07:28 85 12/24/18 07:20 84 18 100 T-Piece 6.0 35 80 18 100 12/24/18 07:20 100 T-Piece 10.0 35 12/24/18 04:00 88 12/24/18 04:00 98.1 89 24 139/61 (87) 98 12/24/18 04:00 8.0 35 12/24/18 03:07 89 18 100 T-Piece 6.0 35 87 18 100 12/24/18 01:26 98 T-Piece 10.0 35 12/24/18 00:00 98.1 87 24 142/78 (99) 100 12/24/18 00:00 80 12/24/18 00:00 8.0 35 12/24/18 00:00 T-piece 8.0 12/23/18 23:27 84 18 100 T-Piece 6.0 35 81 18 100 12/23/18 23:23 81 18 100 Cool Aerosol 35 12/23/18 21:00 T-piece 8.0 12/23/18 20:04 98 T-Piece 10.0 35 12/23/18 20:04 75 18 100 T-Piece 6.0 35 78 18 100 12/23/18 20:00 97.5 78 20 142/64 (90) 98 12/23/18 20:00 76 12/23/18 20:00 8.0 35 12/23/18 16:00 97.7 78 18 146/79 (101) 100 12/23/18 16:00 6.0 35 12/23/18 15:45 77 12/23/18 14:01 98 T-Piece 10.0 35 12/23/18 12:00 6.0 35 12/23/18 12:00 97.5 82 17 125/78 (94) 100 12/23/18 11:32 73 Intake and Output 12/23/18 12/24/18 19:00 07:00 Intake Total 820 ml 976 ml Output Total 2 ml Balance 820 ml 974 ml IV Total 820 ml 976 ml Tube Feeding 0 ml Output Urine Total 1 ml Stool Total 1 ml # Voids 3 # Bowel Movements 1 Laboratory Tests 12/24/18 03:35: White Blood Count 12.9H, Red Blood Count 2.55L, Hemoglobin 7.2L, Hematocrit 22.6L, Mean Corpuscular Volume 89, Mean Corpuscular Hemoglobin 28.4, Mean Corpuscular Hemoglobin Concent 32.1, Red Cell Distribution Width 14.1, Platelet Count 241, Mean Platelet Volume 5.1L, Neutrophils (%) (Auto) , Lymphocytes (%) ( Auto) , Monocytes (%) (Auto) , Eosinophils (%) (Auto) , Basophils (%) (Auto) , Differential Total Cells Counted 100, Neutrophils % (Manual) 62, Lymphocytes % ( Manual) 29, Monocytes % (Manual) 7, Eosinophils % (Manual) 2, Basophils % ( Manual) 0, Band Neutrophils 0, Platelet Estimate Adequate, Platelet Morphology Normal, Hypochromasia 1+, Sodium Level 145, Potassium Level 4.1, Chloride Level 109H, Carbon Dioxide Level 24, Anion Gap 12, Blood Urea Nitrogen 23H, Creatinine 0.8, Estimat Glomerular Filtration Rate , Glucose Level 72L, Calcium Level 9.1 Height (Feet): 4 Height (Inches): 9.00 Weight (Pounds): 157 General Appearance: lethargic EENT: normal ENT inspection Neck: normal alignment Cardiovascular: normal peripheral pulses, normal rate, regular rhythm Respiratory/Chest: chest wall non-tender, lungs clear, normal breath sounds Abdomen: normal bowel sounds, non tender, soft Extremities: normal inspection Edema: no edema noted Arm (L), no edema noted Arm (R), no edema noted Leg (L), no edema noted Leg (R), no edema noted Pedal (L), no edema noted Pedal (R), no edema noted Generalized Neurologic: motor weakness Skin: normal pigmentation, warm/dry Dustin Willis DO Dec 24, 2018 09:30
--- NOTE | 2018-12-24 10:37 | NUR ---
NURSE NOTES: Notified Chika-Daughter,to get consent for blood [id number],Chika refuse blood transfusion at this time,wants to see level in AM,no active bleeding noted ,notified Dr. Dustin Vaughan changed G/J tube to G tube-ordered to start feeding
--- NOTE | 2018-12-24 11:15 | NUR ---
NURSE NOTES: Started Jevity 1.2 Tenzin at rate of 55ml/hr per Khorrami order at 1115. Pt appears to be tolerating feeding well, no signs or symptoms of distress noted at this time. Will continue to monitor closely.
--- NOTE | 2018-12-24 11:43 | NUR ---
*-* NO INSURANCE INFORMATION IN THE BAR UNABLE SEND CLINICALS OR REVIEWS *-*
[2018-12-24 11:58] VITALS: BP_SYST 138; BP_SYST 151; BP_DIAS 74; BP_DIAS 80
[2018-12-24] MEDS ORDERED: Epoetin Alfa-EPBX (NON ESRD)10,000 unit/ml vial SUBQ SCH ×2 (12:00→21:00)
[2018-12-24] MEDS ORDERED: Iron Sucrose 100 MG in NS 55 ML IV SCH (12:00)
[2018-12-24] MEDS: levETIRAcetam 500mg/5ml Liquid GT SCH ×2 (12:40→21:32)
[2018-12-24] MEDS: Miralax 17gm pkt GT SCH (12:41)
--- NOTE | 2018-12-24 14:18 | NUR ---
RADIOLOGY DEPT., CHEST X-RAY DONE.-P.DYE
--- NOTE | 2018-12-24 14:27 | NUR ---
NURSE NOTES: Has been suctioned orally ans tracheostomy copious amount white/boles thick secretions Tolerated venofe-IV site good blood return before and after infusion,IV to john briggs head elevated,oral care done frequently
--- NOTE | 2018-12-24 15:05 | Cardiology Report ---
APPROVED REPORT EKG Measurement Heart [id number] HI [id number] [id number] Normal sinus rhythm Cannot rule out Anterior infarct, age undetermined Abnormal ECG
--- NOTE | 2018-12-24 15:08 | NUR ---
NURSE NOTES: Patient G tube residual checked at 1500. Scant amount of gastric contents aspirated at this time. Appears to be tolerating feeding well, no signs or symptoms of distress noted. Pt appears to be resting comfortably at this time. Will continue to monitor closely.
[2018-12-24 16:00] VITALS: BP 139/66
--- NOTE | 2018-12-24 16:09 | Pulmonology Progress Note ---
Assessment/Plan Assessment/Plan Pulmonary Progress Note HPI: Patient is an 83-year-old female, recently transferred from half-way facility. The patient was noted to have a malfunctioning J-tube. The patient with history of G-tube and J-tube placement. The patient is ventilator dependent, tracheostomy dependent, chronically debilitated, chronically bed-bound. History obtained and chart reviewed. The patient's care discussed and reviewed. The patient admitted to [facility]. GI following. The patient unable to give much in the way of history. The history is obtained through chart review. PAST MEDICAL HISTORY: Notable for congestive heart failure, hypothyroidism, reflux, G-tube, dementia, CVA, history of seizures, functional quadriplegic, anemia. MEDICATIONS: Reviewed. ALLERGIES: Codeine PHYSICAL EXAMINATION: GENERAL: The patient is chronically ill female. VITAL SIGNS NOTED: HEENT: Overall negative. NECK: Supple. Tracheostomy is midline. Moist mm LUNGS: With scattered rhonchi. Moderate air entry. No wheezes. CARDIAC: S1, S2. Regular rate and rhythm without murmurs, rubs, gallops. ABDOMEN: Soft, nondistended. There is leaking from the stoma site. EXTREMITIES: No cyanosis or clubbing. The patient is contracted. NEUROLOGICAL: Poor level of consciousness. Difficult to assess. Poor response to pain. LABORATORY DATA NOTED: Sodium 142, bicarbonate 35, BUN 38, creatinine 1, albumin is 2.8. White cell count 11.7, hemoglobin 8.3, hematocrit 25.8. IMPRESSION: Malfunctioning J-tube, chronic vegetative state, respiratory failure, tracheostomy, minimal leukocytosis, anemia, mild azotemia, moderate protein-calorie malnutrition, chronic encephalopathy, hypothyroidism. RECOMMENDATIONS: Supportive care. Advance tube feeds per GI reccs, possible J- tube if intolerant. Resume half-way medications. Resume seizure medications. Protein supplementation. Monitor clinically for further changes and interventions. Subjective ROS Limited/Unobtainable: No Allergies: Coded Allergies: CODEINE (Verified Allergy, Unknown, HIVES, 09/15/09) Objective Last 24 Hour Vital Signs Date Time Temp Pulse Resp B/P (MAP) Pulse Ox O2 Delivery O2 Flow Rate FiO2 12/24/18 16:00 6.0 35 12/24/18 15:00 82 18 100 T-Piece 6.0 35 78 18 100 12/24/18 12:41 84 138/74 12/24/18 12:32 99 T-Piece 10.0 35 12/24/18 12:01 6.0 35 12/24/18 11:58 98.6 90 20 151/80 (103) 100 12/24/18 11:49 99 12/24/18 10:37 87 18 100 T-Piece 6.0 35 80 18 100 12/24/18 08:58 T-piece 8.0 12/24/18 08:00 98.6 84 20 151/75 (100) 100 12/24/18 08:00 10.0 35 12/24/18 07:28 85 12/24/18 07:20 84 18 100 T-Piece 6.0 35 80 18 100 12/24/18 07:20 100 T-Piece 10.0 35 12/24/18 04:00 88 12/24/18 04:00 98.1 89 24 139/61 (87) 98 12/24/18 04:00 8.0 35 12/24/18 03:07 89 18 100 T-Piece 6.0 35 87 18 100 12/24/18 01:26 98 T-Piece 10.0 35 12/24/18 00:00 98.1 87 24 142/78 (99) 100 12/24/18 00:00 80 12/24/18 00:00 8.0 35 12/24/18 00:00 T-piece 8.0 12/23/18 23:27 84 18 100 T-Piece 6.0 35 81 18 100 12/23/18 23:23 81 18 100 Cool Aerosol 35 12/23/18 21:00 T-piece 8.0 12/23/18 20:04 98 T-Piece 10.0 35 12/23/18 20:04 75 18 100 T-Piece 6.0 35 78 18 100 12/23/18 20:00 97.5 78 20 142/64 (90) 98 12/23/18 20:00 76 12/23/18 20:00 8.0 35 Intake and Output 12/23/18 12/24/18 19:00 07:00 Intake Total 820 ml 975 ml Output Total 2 ml Balance 820 ml 973 ml IV Total 820 ml 975 ml Tube Feeding 0 ml Output Urine Total 1 ml Stool Total 1 ml # Voids 3 # Bowel Movements 1 Microbiology Date/Time Source Procedure Growth Status 12/22/18 23:40 Rectum Received Laboratory Tests 12/24/18 03:35: White Blood Count 12.9H, Red Blood Count 2.55L, Hemoglobin 7.2L, Hematocrit 22.6L, Mean Corpuscular Volume 89, Mean Corpuscular Hemoglobin 28.4, Mean Corpuscular Hemoglobin Concent 32.1, Red Cell Distribution Width 14.1, Platelet Count 241, Mean Platelet Volume 5.1L, Neutrophils (%) (Auto) , Lymphocytes (%) ( Auto) , Monocytes (%) (Auto) , Eosinophils (%) (Auto) , Basophils (%) (Auto) , Differential Total Cells Counted 100, Neutrophils % (Manual) 62, Lymphocytes % ( Manual) 29, Monocytes % (Manual) 7, Eosinophils % (Manual) 2, Basophils % ( Manual) 0, Band Neutrophils 0, Platelet Estimate Adequate, Platelet Morphology Normal, Hypochromasia 1+, Sodium Level 145, Potassium Level 4.1, Chloride Level 109H, Carbon Dioxide Level 24, Anion Gap 12, Blood Urea Nitrogen 23H, Creatinine 0.8, Estimat Glomerular Filtration Rate , Glucose Level 72L, Calcium Level 9.1 Current Medications Medications (Trade) Dose Ordered Sig/Maicol Route PRN Reason Start Time Stop Time Status Last Admin Dose Admin Albuterol Sulfate (Proventil) 2.5 mg Q4HRT HHN 12/23/18 19:00 12/28/18 18:59 12/24/18 15:00 Amlodipine Besylate (Norvasc) 10 mg DAILY GT 12/24/18 09:00 01/22/19 08:59 12/24/18 12:41 Epoetin Errol (Epoetin Errol-EPBX(NON ESRD)) 10,000 unit ONCE SUBQ 12/24/18 21:00 12/24/18 23:59 Famotidine (Pepcid) 20 mg DAILY GT 12/24/18 09:00 01/22/19 08:59 12/24/18 12:41 Folic Acid (Folate) 1 mg DAILY GT 12/24/18 09:00 01/22/19 08:59 12/24/18 12:39 Levetiracetam (Keppra) 750 mg Q12HR GT 12/23/18 21:00 01/22/19 08:59 12/24/18 12:40 Ondansetron HCl (Zofran) 4 mg Q6H PRN GT Nausea & Vomiting 12/23/18 10:30 01/22/19 10:29 Polyethylene Glycol (Miralax) 17 gm DAILY GT 12/24/18 09:00 01/22/19 08:59 12/24/18 12:41 Zolpidem Tartrate (Ambien) 5 mg BEDTIME PRN GT Insomnia 12/23/18 21:00 12/30/18 03:29 Bg Moffett MD Dec 24, 2018 16:09
--- NOTE | 2018-12-24 16:39 | NUR ---
CASE MANAGEMENT:REVIEW 12/24/18 SI: H/H-7.2/22.6 IS: TRANSFUSE 2 UNITS PRBC'S : STEP DOWN UNIT
--- NOTE | 2018-12-24 17:06 | Consultation ---
Consult Note Consult Note Present Illness HPI Ms. Hroton is an 83 yo female PHMx CVA s/p Trach and Peg, Not verbal, CHF, HTN, Hypothyroid, Alzheimer dementia and Seizures who was sent to the ED from her nursing facility for PEG malfunction. In the ED she was afebrile , but has mild leukcoytosis. pt has thick resp, secretions ID was consulted for Possible Sepsis and Pneum PMHx/PSHx CVA s/p Trach and Peg Not verbal CHF HTN Hypothyroid Alzheimer dementia Seizures SocHx No E/T/D FamHx Unable to obtain as patient trached with Alzheimer dementia Allergies: Coded Allergies: CODEINE (Verified Allergy, Unknown, HIVES, 09/15/09) Medication: off of AB Rx Lab reviewed Objective Narrative Gen: NAD, Trached, Not talking or following HEENT: NCAT, MMM, PERRL, No Oral lesion, no scleral icterus NECK: Supple, No LAD, No JVD, trach + LUNGS: CTAB, No W/C, No Accessory muscle use CARDS: RRR, S1, S2, No M/R/G, ABD: Soft, NT, ND, No R/G, + BS, No HSM, No Masses, PDG + : Deferred Ext: C/C/E, Pulses 2+ B/L (DP, Rad): NEURO: A/O x 0, Not verbal SKIN: Warm/dry, No rashes Assessment/Plan A: 83 yo female w Mild Leukocytosis Probable Trachitis (pt has thick Resp. secretions) CXR 923 : Pulmonary vascular congestion may be present. Tracheostomy noted. Heart size is normal. The findings are stable and unchanged. CXR 12/14/18 showed Reduced lung volumes and interstitial pulmonary opacities. Edema vs pneumonia. CXR 12/15/18 did not show any opacities 12/14 Scx: ACB Anemia CVA s/p Trach and Peg Not verbal CHF HTN Hypothyroid Alzheimer dementia Seizures PLAN: - Continue Colistin INH #1 - f/u Sputum / Blood Cx - Monitor CBC and Temps - Monitor CXR Thank you for this consult. We will continue to follow the patient during this hospitalization. Vikas Ovalles MD Dec 24, 2018 17:06
--- NOTE | 2018-12-24 17:56 | Diagnostic Imaging Report ---
. Indication: Cough, dyspnea Technique: One view of the chest Comparison: 12/22/2018 Findings: Tracheostomy is again demonstrated. Streaky interstitial opacities are seen in the right lung apex. The remainder of the lungs pleural spaces are clear. Heart size is normal Impression: Right apical interstitial opacities could represent an early infiltrate. Correlate with clinical findings
--- NOTE | 2018-12-24 18:28 | NUR ---
NURSE NOTES: sputum sent,collected by respiratory therapist,chest X ray result reported to Dr. Chan and Dr. Ovalles
--- NOTE | 2018-12-24 19:06 | NUR ---
HAND-OFF: Report given to RN Yodit Saravia,patient awake ,non verbal on T piece,lab drawing blood culture,need urine for culture.
--- NOTE | 2018-12-24 19:07 | NUR ---
NURSE NOTES: pt is awake, with T piece intact. pt is nonverbal. Right FA 20 G is intact, patent, and clean. G tube is intact running well with feeding. bed is lowest position, alarmed, and locked. call light within reach. will continue plan of care.
[2018-12-24 20:00] VITALS: BP 142/69
--- NOTE | 2018-12-24 21:24 | General Progress Note ---
Assessment/Plan Status: stable, progressing Assessment/Plan: Assessment - dysphagia, s/p GT - s/p G to J conversion at outside hospital - Resp failure, s/p trach - anemia - Daughter does not want any GI w/u - OBS Recommendations - Gastrostomy feeding trial - use G port - monitor residuals - elevate HOB - can consider G to J conversion if fails G port feeds - monitor CBC - transfuse PRN Subjective Allergies: Coded Allergies: CODEINE (Verified Allergy, Unknown, HIVES, 09/15/09) Subjective Above noted d/w daughter RE GJ tube problem and anemia Re GJ tube, she agreed to downgrading back to basic G tube will re-discuss if patient unable to tolerate GT feeds Re anemia, DTR did not wish to have any GI w/u, given patient poor health agreed with transfusion will re-discuss if acute GI bleeding noted Objective Last 24 Hour Vital Signs Date Time Temp Pulse Resp B/P (MAP) Pulse Ox O2 Delivery O2 Flow Rate FiO2 12/24/18 19:44 100 T-Piece 10.0 35 12/24/18 19:44 76 16 100 T-Piece 6.0 35 79 16 100 12/24/18 16:00 97.7 81 21 139/66 (90) 100 12/24/18 16:00 6.0 35 12/24/18 15:23 74 12/24/18 15:00 82 18 100 T-Piece 6.0 35 78 18 100 12/24/18 12:41 84 138/74 12/24/18 12:32 99 T-Piece 10.0 35 12/24/18 12:01 6.0 35 12/24/18 11:58 98.6 90 20 151/80 (103) 100 12/24/18 11:49 99 12/24/18 10:37 87 18 100 T-Piece 6.0 35 80 18 100 12/24/18 08:58 T-piece 8.0 12/24/18 08:00 98.6 84 20 151/75 (100) 100 12/24/18 08:00 10.0 35 12/24/18 07:28 85 12/24/18 07:20 84 18 100 T-Piece 6.0 35 80 18 100 12/24/18 07:20 100 T-Piece 10.0 35 12/24/18 04:00 88 12/24/18 04:00 98.1 89 24 139/61 (87) 98 12/24/18 04:00 8.0 35 12/24/18 03:07 89 18 100 T-Piece 6.0 35 87 18 100 12/24/18 01:26 98 T-Piece 10.0 35 12/24/18 00:00 98.1 87 24 142/78 (99) 100 12/24/18 00:00 80 12/24/18 00:00 8.0 35 12/24/18 00:00 T-piece 8.0 12/23/18 23:27 84 18 100 T-Piece 6.0 35 81 18 100 12/23/18 23:23 81 18 100 Cool Aerosol 35 Intake and Output 12/23/18 12/24/18 19:00 07:00 Intake Total 820 ml 975 ml Output Total 2 ml Balance 820 ml 973 ml IV Total 820 ml 975 ml Tube Feeding 0 ml Output Urine Total 1 ml Stool Total 1 ml # Voids 3 # Bowel Movements 1 Laboratory Tests 12/24/18 03:35: White Blood Count 12.9H, Red Blood Count 2.55L, Hemoglobin 7.2L, Hematocrit 22.6L, Mean Corpuscular Volume 89, Mean Corpuscular Hemoglobin 28.4, Mean Corpuscular Hemoglobin Concent 32.1, Red Cell Distribution Width 14.1, Platelet Count 241, Mean Platelet Volume 5.1L, Neutrophils (%) (Auto) , Lymphocytes (%) ( Auto) , Monocytes (%) (Auto) , Eosinophils (%) (Auto) , Basophils (%) (Auto) , Differential Total Cells Counted 100, Neutrophils % (Manual) 62, Lymphocytes % ( Manual) 29, Monocytes % (Manual) 7, Eosinophils % (Manual) 2, Basophils % ( Manual) 0, Band Neutrophils 0, Platelet Estimate Adequate, Platelet Morphology Normal, Hypochromasia 1+, Sodium Level 145, Potassium Level 4.1, Chloride Level 109H, Carbon Dioxide Level 24, Anion Gap 12, Blood Urea Nitrogen 23H, Creatinine 0.8, Estimat Glomerular Filtration Rate , Glucose Level 72L, Calcium Level 9.1 Height (Feet): 4 Height (Inches): 9.00 Weight (Pounds): 157 Objective Debilitated AA woman NCAT (+) trachestomy CTA RR abd soft NT ND , GJ tube removed and replaced with 20 Fr G tube (+) contracted OBS Celio Vaughan MD Dec 24, 2018 21:24
[2018-12-24] MEDS: Colistin for inhalation INH SCH (22:00)
[2018-12-25] VITALS: BP 149/80
[2018-12-25] MEDS: Albuterol ud Inhalation HHN SCH ×5 (02:40→23:08)
--- NOTE | 2018-12-25 03:46 | Diagnostic Imaging Report ---
Indication: Dyspnea Comparison: 12/24/2018 A single view chest radiograph was obtained. Findings: Primarily interstitial appearing opacities present bilaterally. Evaluation is limited due to rotation and soft tissue attenuation. There is probably little to no change compared to the prior study. Tracheostomy is present. Heart size is stable. IMPRESSION: Limited evaluation. Probable mild pulmonary vascular congestion.
[2018-12-25 04:00] VITALS: BP 154/87
[2018-12-25 05:11] LABS: HEMATOCRIT 23.7 % (37.0-47.0); HEMOGLOBIN 7.6 G/DL (12.0-16.0); MEAN CORPUSCULAR VOLUME 88 FL (80-99); PLATELET COUNT 231 K/UL (150-450); RED BLOOD COUNT 2.69 M/UL (4.20-5.40); RED CELL DISTRIBUTION WIDTH 14.1 % (11.6-14.8); WHITE BLOOD COUNT 10.5 K/UL (4.8-10.8)
[2018-12-25 05:31] LABS: ANION GAP 7 mmol/L (5-15); BLOOD UREA NITROGEN 19 mg/dL (7-18); CALCIUM 9.3 MG/DL (8.5-10.1); CARBON DIOXIDE 29 MMOL/L (21-32); CHLORIDE 105 MMOL/L (98-107); CREATININE 0.7 MG/DL (0.55-1.30); POTASSIUM 4.2 MMOL/L (3.5-5.1); SODIUM 141 MMOL/L (136-145)
--- NOTE | 2018-12-25 07:10 | NUR ---
NURSE NOTES: Received pt from JEANNINE Barrett. Patient is A/Ox0; NV. No signs of distress. BUE contracted. Patient has a Shiley 8.0 connected to T-piece, on cool aerosol fio2 35%. SPo2 100%. Patient has a G-tube running Jevity 1.2@55ml/hr, 0ml residual noted, hob 35 degrees. Abdomen is non-distended. Incontinent and connected to purwick. RFA 20G TKO, patent and asymptomatic. Bed locked, alarmed and in lowest position.
--- NOTE | 2018-12-25 07:58 | NUR ---
HAND-OFF: Report given to Gisselle PAEZ. pt is on T piece , stable. Right FA IV is intact, patent, and clean. call light within reach.
[2018-12-25 08:00] VITALS: BP 121/82
--- NOTE | 2018-12-25 08:22 | Pulmonology Progress Note ---
Assessment/Plan Assessment/Plan IMPRESSION: Malfunctioning J-tube, chronic vegetative state, respiratory failure, tracheostomy, minimal leukocytosis, anemia, mild azotemia, moderate protein-calorie malnutrition, chronic encephalopathy, hypothyroidism. PLAN daughter does not want transfusion ID for antibiotics respiratory care monitor use of feeding tube supportive care aspiration precautions dc planning to snf pending clearance impression, plan, and exam edited and reviewed in detail care discussed with RN Subjective ROS Limited/Unobtainable: Yes Allergies: Coded Allergies: CODEINE (Verified Allergy, Unknown, HIVES, 09/15/09) Subjective care noted d/w gi daughter does not want transfusion ID noted imaging reviewed Objective Last 24 Hour Vital Signs Date Time Temp Pulse Resp B/P (MAP) Pulse Ox O2 Delivery O2 Flow Rate FiO2 12/25/18 08:00 96.6 90 22 121/82 (95) 100 12/25/18 08:00 8.0 35 12/25/18 07:33 100 T-Piece 10.0 35 12/25/18 07:29 74 20 100 T-Piece 10.0 35 71 20 100 12/25/18 04:00 88 12/25/18 04:00 8.0 35 12/25/18 04:00 97.8 89 24 154/87 (109) 100 12/25/18 02:31 87 16 100 T-Piece 6.0 35 81 16 100 12/25/18 00:40 100 T-Piece 10.0 35 12/25/18 00:00 8.0 35 12/25/18 00:00 97.7 78 24 149/80 (103) 100 12/24/18 23:31 79 16 100 T-Piece 6.0 35 75 16 100 12/24/18 23:27 85 12/24/18 21:00 T-piece 8.0 12/24/18 20:00 98.6 78 20 142/69 (93) 100 12/24/18 20:00 8.0 35 12/24/18 19:44 100 T-Piece 10.0 35 12/24/18 19:44 76 16 100 T-Piece 6.0 35 79 16 100 12/24/18 19:04 75 12/24/18 16:00 97.7 81 21 139/66 (90) 100 12/24/18 16:00 6.0 35 12/24/18 15:23 74 12/24/18 15:00 82 18 100 T-Piece 6.0 35 78 18 100 12/24/18 12:41 84 138/74 12/24/18 12:32 99 T-Piece 10.0 35 12/24/18 12:01 6.0 35 12/24/18 11:58 98.6 90 20 151/80 (103) 100 12/24/18 11:49 99 12/24/18 10:37 87 18 100 T-Piece 6.0 35 80 18 100 12/24/18 08:58 T-piece 8.0 Intake and Output 12/24/18 12/25/18 18:59 06:59 Intake Total 1070 ml 710 ml Output Total 1 ml 550 ml Balance 1069 ml 160 ml Free Water 120 ml 50 ml IV Total 565 ml Tube Feeding 385 ml 660 ml Output Urine Total 550 ml Stool Total 1 ml # Bowel Movements 1 2 Objective GENERAL: The patient is chronically ill female. resting HEENT: Overall negative. NECK: Supple. Tracheostomy is midline. Carotids 2+. LUNGS: some rhonchi. Moderate air entry. No wheezes. CARDIAC: S1, S2. Regular rate and rhythm without murmurs, rubs, gallops. ABDOMEN: Soft, nondistended. There is leaking from the stoma site. EXTREMITIES: No cyanosis or clubbing. The patient is contracted. NEUROLOGICAL: reduced level of consciousness. Microbiology Date/Time Source Procedure Growth Status 12/22/18 23:40 Nasal Nares MRSA Culture - Final NO METHICILLIN RESISTANT STAPH AUREUS... Complete 12/22/18 23:40 Rectum VRE Culture - Final Enterococcus Faecalis - Vre Complete Laboratory Tests 12/25/18 03:10: White Blood Count 10.5, Red Blood Count 2.69L, Hemoglobin 7.6L, Hematocrit 23.7L , Mean Corpuscular Volume 88, Mean Corpuscular Hemoglobin 28.2, Mean Corpuscular Hemoglobin Concent 32.0, Red Cell Distribution Width 14.1, Platelet Count 231, Mean Platelet Volume 5.1L, Neutrophils (%) (Auto) , Lymphocytes (%) ( Auto) , Monocytes (%) (Auto) , Eosinophils (%) (Auto) , Basophils (%) (Auto) , Differential Total Cells Counted 100, Neutrophils % (Manual) 65, Lymphocytes % ( Manual) 26, Monocytes % (Manual) 5, Eosinophils % (Manual) 4H, Basophils % ( Manual) 0, Band Neutrophils 0, Platelet Estimate Adequate, Platelet Morphology Normal, Hypochromasia 1+, Anisocytosis 1+, Sodium Level 141, Potassium Level 4.2 , Chloride Level 105, Carbon Dioxide Level 29, Anion Gap 7, Blood Urea Nitrogen 19H, Creatinine 0.7, Estimat Glomerular Filtration Rate , Glucose Level 134H, Calcium Level 9.3 Current Medications Medications (Trade) Dose Ordered Sig/Maicol Route PRN Reason Start Time Stop Time Status Last Admin Dose Admin Albuterol Sulfate (Proventil) 2.5 mg Q4HRT HHN 12/23/18 19:00 12/28/18 18:59 12/25/18 07:34 Amlodipine Besylate (Norvasc) 10 mg DAILY GT 12/24/18 09:00 01/22/19 08:59 12/24/18 12:41 Colistimethate Sodium (Colistin *inhalation use only*) 150 mg Q12HR@ INH 12/24/18 22:00 12/31/18 21:59 Famotidine (Pepcid) 20 mg DAILY GT 12/24/18 09:00 01/22/19 08:59 12/24/18 12:41 Folic Acid (Folate) 1 mg DAILY GT 12/24/18 09:00 01/22/19 08:59 12/24/18 12:39 Levetiracetam (Keppra) 750 mg Q12HR GT 12/23/18 21:00 01/22/19 08:59 12/24/18 21:32 Ondansetron HCl (Zofran) 4 mg Q6H PRN GT Nausea & Vomiting 12/23/18 10:30 01/22/19 10:29 Polyethylene Glycol (Miralax) 17 gm DAILY GT 12/24/18 09:00 01/22/19 08:59 12/24/18 12:41 Zolpidem Tartrate (Ambien) 5 mg BEDTIME PRN GT Insomnia 12/23/18 21:00 12/30/18 03:29 Amaury Chan MD Dec 25, 2018 08:22
--- NOTE | 2018-12-25 09:04 | NUR ---
NURSE NOTES: Clarified with Dr. Chan regarding code status. Confirmed patient is DNR, only chem code.
[2018-12-25] MEDS: levETIRAcetam 500mg/5ml Liquid GT SCH ×2 (09:14→21:09)
[2018-12-25] MEDS: Miralax 17gm pkt GT SCH (09:15)
[2018-12-25] MEDS: Colistin for inhalation INH SCH ×2 (11:48→22:11)
[2018-12-25 12:00] VITALS: BP 120/66
--- NOTE | 2018-12-25 14:03 | NUR ---
NURSE NOTES: Report received RN Gisselle Steiner,patient with tracheostomy,on T piece 35 %-10L O2,head 30 degrees aspiration precaution,suctioned orally and via tracheostomy-white/light boles,moderate amount,incontinent urine,with external female device to collect urine,turned and repositioned,with skin care,oral care done,continue care
--- NOTE | 2018-12-25 14:03 | NUR ---
HAND-OFF: Report given to JEANNINE Vieira.
--- NOTE | 2018-12-25 14:42 | Infectious Diseases Prog Note ---
Assessment/Plan Assessment/Plan A: 83 yo female w Mild Leukocytosis, Sp Probable Trachitis (pt has thick Resp. secretions) CXR:12/25 Limited evaluation. Probable mild pulmonary vascular congestion. CXR 12/22 : Pulmonary vascular congestion may be present. Tracheostomy noted. Heart size is normal. The findings are stable and unchanged. CXR 12/14/18 showed Reduced lung volumes and interstitial pulmonary opacities. Edema vs pneumonia. CXR 12/15/18 did not show any opacities 12/14 Scx: ACB Anemia CVA s/p Trach and Peg Not verbal CHF HTN Hypothyroid Alzheimer dementia Seizures PLAN: - Continue Colistin INH # 2 - f/u Sputum / Blood / urine Cx - Monitor CBC and Temps - Monitor CXR Subjective Allergies: Coded Allergies: CODEINE (Verified Allergy, Unknown, HIVES, 09/15/09) Objective Vital Signs Last 24 Hour Vital Signs Date Time Temp Pulse Resp B/P (MAP) Pulse Ox O2 Delivery O2 Flow Rate FiO2 12/25/18 13:21 95 T-Piece 10.0 35 12/25/18 12:00 97.7 76 18 120/66 (84) 100 12/25/18 12:00 8.0 35 12/25/18 12:00 98 12/25/18 11:41 88 20 97 T-Piece 10.0 35 91 20 93 12/25/18 09:14 90 121/82 12/25/18 09:00 T-piece 8.0 12/25/18 08:00 96.6 90 22 121/82 (95) 100 12/25/18 08:00 8.0 35 12/25/18 07:40 74 12/25/18 07:33 100 T-Piece 10.0 35 12/25/18 07:29 74 20 100 T-Piece 10.0 35 71 20 100 12/25/18 04:00 88 12/25/18 04:00 8.0 35 12/25/18 04:00 97.8 89 24 154/87 (109) 100 12/25/18 02:31 87 16 100 T-Piece 6.0 35 81 16 100 12/25/18 00:40 100 T-Piece 10.0 35 12/25/18 00:00 8.0 35 12/25/18 00:00 97.7 78 24 149/80 (103) 100 12/24/18 23:31 79 16 100 T-Piece 6.0 35 75 16 100 12/24/18 23:27 85 12/24/18 21:00 T-piece 8.0 12/24/18 20:00 98.6 78 20 142/69 (93) 100 12/24/18 20:00 8.0 35 12/24/18 19:44 100 T-Piece 10.0 35 12/24/18 19:44 76 16 100 T-Piece 6.0 35 79 16 100 12/24/18 19:04 75 12/24/18 16:00 97.7 81 21 139/66 (90) 100 12/24/18 16:00 6.0 35 12/24/18 15:23 74 12/24/18 15:00 82 18 100 T-Piece 6.0 35 78 18 100 Height (Feet): 4 Height (Inches): 9.00 Weight (Pounds): 157 Microbiology Date/Time Source Procedure Growth Status 12/22/18 23:40 Nasal Nares MRSA Culture - Final NO METHICILLIN RESISTANT STAPH AUREUS... Complete 12/22/18 23:40 Rectum VRE Culture - Final Enterococcus Faecalis - Vre Complete Laboratory Tests Test 12/25/18 03:10 White Blood Count 10.5 K/UL (4.8-10.8) Red Blood Count 2.69 M/UL (4.20-5.40) L Hemoglobin 7.6 G/DL (12.0-16.0) L Hematocrit 23.7 % (37.0-47.0) L Mean Corpuscular Volume 88 FL (80-99) Mean Corpuscular Hemoglobin 28.2 PG (27.0-31.0) Mean Corpuscular Hemoglobin Concent 32.0 G/DL (32.0-36.0) Red Cell Distribution Width 14.1 % (11.6-14.8) Platelet Count 231 K/UL (150-450) Mean Platelet Volume 5.1 FL (6.5-10.1) L Neutrophils (%) (Auto) % (45.0-75.0) Lymphocytes (%) (Auto) % (20.0-45.0) Monocytes (%) (Auto) % (1.0-10.0) Eosinophils (%) (Auto) % (0.0-3.0) Basophils (%) (Auto) % (0.0-2.0) Differential Total Cells Counted 100 Neutrophils % (Manual) 65 % (45-75) Lymphocytes % (Manual) 26 % (20-45) Monocytes % (Manual) 5 % (1-10) Eosinophils % (Manual) 4 % (0-3) H Basophils % (Manual) 0 % (0-2) Band Neutrophils 0 % (0-8) Platelet Estimate Adequate Platelet Morphology Normal Hypochromasia 1+ Anisocytosis 1+ Sodium Level 141 MMOL/L (136-145) Potassium Level 4.2 MMOL/L (3.5-5.1) Chloride Level 105 MMOL/L (98-107) Carbon Dioxide Level 29 MMOL/L (21-32) Anion Gap 7 mmol/L (5-15) Blood Urea Nitrogen 19 mg/dL (7-18) H Creatinine 0.7 MG/DL (0.55-1.30) Estimat Glomerular Filtration Rate mL/min (>60) Glucose Level 134 MG/DL (74-106) H Calcium Level 9.3 MG/DL (8.5-10.1) Current Medications Medications (Trade) Dose Ordered Sig/Maicol Route PRN Reason Start Time Stop Time Status Last Admin Dose Admin Albuterol Sulfate (Proventil) 2.5 mg Q4HRT HHN 12/23/18 19:00 12/28/18 18:59 12/25/18 11:48 Amlodipine Besylate (Norvasc) 10 mg DAILY GT 12/24/18 09:00 01/22/19 08:59 12/25/18 09:14 Colistimethate Sodium (Colistin *inhalation use only*) 150 mg Q12HR@10,22 INH 12/24/18 22:00 12/31/18 21:59 12/25/18 11:48 Famotidine (Pepcid) 20 mg DAILY GT 12/24/18 09:00 01/22/19 08:59 12/25/18 09:15 Folic Acid (Folate) 1 mg DAILY GT 12/24/18 09:00 01/22/19 08:59 12/25/18 09:14 Levetiracetam (Keppra) 750 mg Q12HR GT 12/23/18 21:00 01/22/19 08:59 12/25/18 09:14 Ondansetron HCl (Zofran) 4 mg Q6H PRN GT Nausea & Vomiting 12/23/18 10:30 01/22/19 10:29 Polyethylene Glycol (Miralax) 17 gm DAILY GT 12/24/18 09:00 01/22/19 08:59 12/25/18 09:15 Zolpidem Tartrate (Ambien) 5 mg BEDTIME PRN GT Insomnia 12/23/18 21:00 12/30/18 03:29 Vikas Ovalles MD Dec 25, 2018 14:42
--- NOTE | 2018-12-25 14:55 | General Progress Note ---
Assessment/Plan Problem List: (1) Malfunction of jejunostomy tube ICD Codes: K94.13 - Enterostomy malfunction SNOMED: 090836130, 195181801 (2) Leukocytosis ICD Codes: D72.829 - Elevated white blood cell count, unspecified SNOMED: 354901047, 850324882 (3) Respiratory failure ICD Codes: J96.90 - Respiratory failure, unspecified, unspecified whether with hypoxia or hypercapnia SNOMED: 568184817 (4) HTN (hypertension) ICD Codes: I10 - Essential (primary) hypertension SNOMED: 10977105 (5) Feeding by G-tube ICD Codes: Z93.1 - Gastrostomy status SNOMED: 054295943, 317887011, 459421960 (6) Chronic respiratory failure ICD Codes: J96.10 - Chronic respiratory failure, unspecified whether with hypoxia or hypercapnia SNOMED: 39347868 (7) Feeding by G-tube ICD Codes: Z93.1 - Gastrostomy status SNOMED: 899284007, 289557457, 149942580 Status: stable, progressing Assessment/Plan: o2 pulm tx trach care gi f/u transfuse prn cbc bmp am Subjective Constitutional: Reports: weakness Allergies: Coded Allergies: CODEINE (Verified Allergy, Unknown, HIVES, 09/15/09) All Systems: reviewed and negative except above Subjective trach aerosol asleep Objective Last 24 Hour Vital Signs Date Time Temp Pulse Resp B/P (MAP) Pulse Ox O2 Delivery O2 Flow Rate FiO2 12/25/18 13:21 95 T-Piece 10.0 35 12/25/18 12:00 97.7 76 18 120/66 (84) 100 12/25/18 12:00 8.0 35 12/25/18 12:00 98 12/25/18 11:41 88 20 97 T-Piece 10.0 35 91 20 93 12/25/18 09:14 90 121/82 12/25/18 09:00 T-piece 8.0 12/25/18 08:00 96.6 90 22 121/82 (95) 100 12/25/18 08:00 8.0 35 12/25/18 07:40 74 12/25/18 07:33 100 T-Piece 10.0 35 12/25/18 07:29 74 20 100 T-Piece 10.0 35 71 20 100 12/25/18 04:00 88 12/25/18 04:00 8.0 35 12/25/18 04:00 97.8 89 24 154/87 (109) 100 12/25/18 02:31 87 16 100 T-Piece 6.0 35 81 16 100 12/25/18 00:40 100 T-Piece 10.0 35 12/25/18 00:00 8.0 35 12/25/18 00:00 97.7 78 24 149/80 (103) 100 12/24/18 23:31 79 16 100 T-Piece 6.0 35 75 16 100 12/24/18 23:27 85 12/24/18 21:00 T-piece 8.0 12/24/18 20:00 98.6 78 20 142/69 (93) 100 12/24/18 20:00 8.0 35 12/24/18 19:44 100 T-Piece 10.0 35 12/24/18 19:44 76 16 100 T-Piece 6.0 35 79 16 100 12/24/18 19:04 75 12/24/18 16:00 97.7 81 21 139/66 (90) 100 12/24/18 16:00 6.0 35 12/24/18 15:23 74 12/24/18 15:00 82 18 100 T-Piece 6.0 35 78 18 100 Intake and Output 12/24/18 12/25/18 19:00 07:00 Intake Total 1100 ml 655 ml Output Total 1 ml 550 ml Balance 1099 ml 105 ml Free Water 120 ml 50 ml IV Total 540 ml Tube Feeding 440 ml 605 ml Output Urine Total 550 ml Stool Total 1 ml # Bowel Movements 1 2 Laboratory Tests 12/25/18 03:10: White Blood Count 10.5, Red Blood Count 2.69L, Hemoglobin 7.6L, Hematocrit 23.7L , Mean Corpuscular Volume 88, Mean Corpuscular Hemoglobin 28.2, Mean Corpuscular Hemoglobin Concent 32.0, Red Cell Distribution Width 14.1, Platelet Count 231, Mean Platelet Volume 5.1L, Neutrophils (%) (Auto) , Lymphocytes (%) ( Auto) , Monocytes (%) (Auto) , Eosinophils (%) (Auto) , Basophils (%) (Auto) , Differential Total Cells Counted 100, Neutrophils % (Manual) 65, Lymphocytes % ( Manual) 26, Monocytes % (Manual) 5, Eosinophils % (Manual) 4H, Basophils % ( Manual) 0, Band Neutrophils 0, Platelet Estimate Adequate, Platelet Morphology Normal, Hypochromasia 1+, Anisocytosis 1+, Sodium Level 141, Potassium Level 4.2 , Chloride Level 105, Carbon Dioxide Level 29, Anion Gap 7, Blood Urea Nitrogen 19H, Creatinine 0.7, Estimat Glomerular Filtration Rate , Glucose Level 134H, Calcium Level 9.3 Height (Feet): 4 Height (Inches): 9.00 Weight (Pounds): 157 General Appearance: lethargic EENT: normal ENT inspection Neck: normal alignment Cardiovascular: normal peripheral pulses, normal rate, regular rhythm Respiratory/Chest: chest wall non-tender, lungs clear, normal breath sounds Abdomen: normal bowel sounds, non tender, soft Extremities: normal inspection Edema: no edema noted Arm (L), no edema noted Arm (R), no edema noted Leg (L), no edema noted Leg (R), no edema noted Pedal (L), no edema noted Pedal (R), no edema noted Generalized Neurologic: motor weakness Skin: normal pigmentation, warm/dry Dustin Willis DO Dec 25, 2018 14:55
[2018-12-25 16:15] VITALS: BP 124/68
--- NOTE | 2018-12-25 19:35 | NUR ---
HAND-OFF: Report given to JEANNINE HOPE De Anda,patient on T -piece 35 %,incontinent,needs frequent suctioning,large amount white thick sputum from mouth,and mouth Addendum: 12/25/18 at 1946 by Aileen KAMARA RN from mouth and tracheostomy
--- NOTE | 2018-12-25 19:36 | NUR ---
NURSE NOTES: received pt from Isha PAEZ,. pt is awake and resting on the bed, T-piece 35. no dysrhythmia reported from last shift. easy to arouse pt with touch. bed at the lowest position, alarmed, and locked. call light within reach. will continue plan of care.
[2018-12-25 20:00] VITALS: BP 140/62
--- NOTE | 2018-12-25 21:01 | General Progress Note ---
Assessment/Plan Status: stable, progressing Assessment/Plan: Assessment - dysphagia, s/p GT - s/p G to J conversion at outside hospital, now back to G tube - Resp failure, s/p trach - anemia - Daughter does not want any GI w/u - OBS Recommendations - Gastrostomy feeding - monitor residuals - elevate HOB - can consider G to J conversion if fails G port feeds - monitor CBC - transfuse PRN Subjective Allergies: Coded Allergies: CODEINE (Verified Allergy, Unknown, HIVES, 09/15/09) Subjective Above noted d/w event staff tolerating TF Objective Last 24 Hour Vital Signs Date Time Temp Pulse Resp B/P (MAP) Pulse Ox O2 Delivery O2 Flow Rate FiO2 12/25/18 19:29 99 T-Piece 10.0 35 12/25/18 19:27 87 20 99 T-Piece 10.0 35 85 20 99 12/25/18 16:15 98.0 86 19 124/68 (86) 100 12/25/18 16:00 8.0 35 12/25/18 15:14 76 12/25/18 15:01 79 20 99 T-Piece 10.0 35 80 20 96 12/25/18 13:21 95 T-Piece 10.0 35 12/25/18 12:00 97.7 76 18 120/66 (84) 100 12/25/18 12:00 8.0 35 12/25/18 12:00 98 12/25/18 11:41 88 20 97 T-Piece 10.0 35 91 20 93 12/25/18 09:14 90 121/82 12/25/18 09:00 T-piece 8.0 12/25/18 08:00 96.6 90 22 121/82 (95) 100 12/25/18 08:00 8.0 35 12/25/18 07:40 74 12/25/18 07:33 100 T-Piece 10.0 35 12/25/18 07:29 74 20 100 T-Piece 10.0 35 71 20 100 12/25/18 04:00 88 12/25/18 04:00 8.0 35 12/25/18 04:00 97.8 89 24 154/87 (109) 100 12/25/18 02:31 87 16 100 T-Piece 6.0 35 81 16 100 12/25/18 00:40 100 T-Piece 10.0 35 12/25/18 00:00 8.0 35 12/25/18 00:00 97.7 78 24 149/80 (103) 100 12/24/18 23:31 79 16 100 T-Piece 6.0 35 75 16 100 12/24/18 23:27 85 12/24/18 21:00 T-piece 8.0 Intake and Output 12/24/18 12/25/18 19:00 07:00 Intake Total 1100 ml 655 ml Output Total 1 ml 550 ml Balance 1099 ml 105 ml Free Water 120 ml 50 ml IV Total 540 ml Tube Feeding 440 ml 605 ml Output Urine Total 550 ml Stool Total 1 ml # Bowel Movements 1 2 Laboratory Tests 12/25/18 03:10: White Blood Count 10.5, Red Blood Count 2.69L, Hemoglobin 7.6L, Hematocrit 23.7L , Mean Corpuscular Volume 88, Mean Corpuscular Hemoglobin 28.2, Mean Corpuscular Hemoglobin Concent 32.0, Red Cell Distribution Width 14.1, Platelet Count 231, Mean Platelet Volume 5.1L, Neutrophils (%) (Auto) , Lymphocytes (%) ( Auto) , Monocytes (%) (Auto) , Eosinophils (%) (Auto) , Basophils (%) (Auto) , Differential Total Cells Counted 100, Neutrophils % (Manual) 65, Lymphocytes % ( Manual) 26, Monocytes % (Manual) 5, Eosinophils % (Manual) 4H, Basophils % ( Manual) 0, Band Neutrophils 0, Platelet Estimate Adequate, Platelet Morphology Normal, Hypochromasia 1+, Anisocytosis 1+, Sodium Level 141, Potassium Level 4.2 , Chloride Level 105, Carbon Dioxide Level 29, Anion Gap 7, Blood Urea Nitrogen 19H, Creatinine 0.7, Estimat Glomerular Filtration Rate , Glucose Level 134H, Calcium Level 9.3 Height (Feet): 4 Height (Inches): 9.00 Weight (Pounds): 157 Objective Debilitated AA woman NCAT (+) trachestomy CTA RR abd soft NT ND , GT noted (+) contracted OBS Celio Vaughan MD Dec 25, 2018 21:01
[2018-12-25] MEDS ORDERED: LEVETIRACE100 MG/1 M GT (21:06)
--- NOTE | 2018-12-25 21:07 | NUR ---
NURSE NOTES: pt's daugther at the bedside. no residual noted, pt is sleeping. stable. bed at the lowest position, alarmed, and locked. call light within reach.
[2018-12-26] VITALS: BP 142/68
--- NOTE | 2018-12-26 00:45 | NUR ---
NURSE NOTES: urine collected and sent to lab.
[2018-12-26] MEDS: Albuterol ud Inhalation HHN SCH ×4 (03:40→14:47)
[2018-12-26 04:00] VITALS: BP 128/70
[2018-12-26 05:24] LABS: HEMATOCRIT 23.6 % (37.0-47.0); HEMOGLOBIN 7.6 G/DL (12.0-16.0); MEAN CORPUSCULAR VOLUME 88 FL (80-99); PLATELET COUNT 223 K/UL (150-450); RED BLOOD COUNT 2.67 M/UL (4.20-5.40); RED CELL DISTRIBUTION WIDTH 14.5 % (11.6-14.8); WHITE BLOOD COUNT 11.9 K/UL (4.8-10.8)
[2018-12-26 05:34] LABS: ANION GAP 5 mmol/L (5-15); BLOOD UREA NITROGEN 18 mg/dL (7-18); CALCIUM 9.4 MG/DL (8.5-10.1); CARBON DIOXIDE 33 MMOL/L (21-32); CHLORIDE 104 MMOL/L (98-107); CREATININE 0.9 MG/DL (0.55-1.30); POTASSIUM 4.3 MMOL/L (3.5-5.1); SODIUM 142 MMOL/L (136-145)
--- NOTE | 2018-12-26 07:33 | NUR ---
NURSE NOTES: Received report from JEANNINE Barrett. Patient in bed, non verbal. responsive to shaking. opens eyes spontaneous. puplis sluggish at 2mm. SR noted on hospital monitor. Bilateral peripheral radial and pedal pulses weak. cap refill<3 sec. lungs on auscultation diminished. moderate oral/tracheo secretions, mild yellow and white. pt trach shiley6, T-piece, FIo2 35%. Abdomen round, non tender. no bm at this time. pt GT connected to Jevity 1.2 at 55ml/hr. no residuals. pure wick, incontinent, bladder flat. iv access Right FA 20G, dressing intact, TKO. skin-Optifoam placed at sacral area. Bed in lowest position, locked, side rails upx3. contact precautions in place. Bed alarm on. Call light within reach. Will continue to monitor.
--- NOTE | 2018-12-26 07:50 | NUR ---
HAND-OFF: Report given to Angela PAEZ. pt is resting on the bed. stable vital signs.
[2018-12-26 08:00] VITALS: BP 143/98
[2018-12-26] MEDS: Miralax 17gm pkt GT SCH (08:42)
[2018-12-26] MEDS: levETIRAcetam 500mg/5ml Liquid GT SCH (08:42)
--- NOTE | 2018-12-26 08:47 | General Progress Note ---
Assessment/Plan Problem List: (1) Malfunction of jejunostomy tube ICD Codes: K94.13 - Enterostomy malfunction SNOMED: 388553801, 622439397 (2) Leukocytosis ICD Codes: D72.829 - Elevated white blood cell count, unspecified SNOMED: 283667249, 145910646 (3) Respiratory failure ICD Codes: J96.90 - Respiratory failure, unspecified, unspecified whether with hypoxia or hypercapnia SNOMED: 567995016 (4) HTN (hypertension) ICD Codes: I10 - Essential (primary) hypertension SNOMED: 72157580 (5) Feeding by G-tube ICD Codes: Z93.1 - Gastrostomy status SNOMED: 326015294, 897074901, 989745633 (6) Chronic respiratory failure ICD Codes: J96.10 - Chronic respiratory failure, unspecified whether with hypoxia or hypercapnia SNOMED: 11993216 (7) Feeding by G-tube ICD Codes: Z93.1 - Gastrostomy status SNOMED: 263111879, 367618281, 789468088 Status: stable, progressing Assessment/Plan: o2 pulm tx trach care gi f/u transfuse prn cbc bmp am Subjective Constitutional: Reports: weakness Allergies: Coded Allergies: CODEINE (Verified Allergy, Unknown, HIVES, 09/15/09) All Systems: reviewed and negative except above Subjective trach aerosol asleep Objective Last 24 Hour Vital Signs Date Time Temp Pulse Resp B/P (MAP) Pulse Ox O2 Delivery O2 Flow Rate FiO2 12/26/18 08:45 85 143/98 12/26/18 08:00 8.0 35 12/26/18 07:35 82 21 100 T-Piece 10.0 35 77 20 100 12/26/18 07:25 100 T-Piece 10.0 35 12/26/18 04:00 98.1 86 20 128/70 (89) 100 12/26/18 04:00 8.0 35 12/26/18 04:00 84 12/26/18 03:41 87 18 99 T-Piece 10.0 35 89 18 99 12/26/18 03:34 84 12/26/18 01:10 98 T-Piece 10.0 35 12/26/18 00:00 98.0 83 20 142/68 (92) 100 12/26/18 00:00 8.0 35 12/25/18 23:32 86 12/25/18 23:08 86 18 99 T-Piece 10.0 35 87 20 99 12/25/18 22:12 83 20 99 T-Piece 10.0 35 79 20 99 12/25/18 21:00 T-piece 8.0 12/25/18 20:00 97.9 85 20 140/62 (88) 100 12/25/18 20:00 8.0 35 12/25/18 19:29 99 T-Piece 10.0 35 12/25/18 19:27 87 20 99 T-Piece 10.0 35 85 20 99 12/25/18 19:11 91 12/25/18 16:15 98.0 86 19 124/68 (86) 100 12/25/18 16:00 8.0 35 12/25/18 15:14 76 12/25/18 15:01 79 20 99 T-Piece 10.0 35 80 20 96 12/25/18 13:21 95 T-Piece 10.0 35 12/25/18 12:00 97.7 76 18 120/66 (84) 100 12/25/18 12:00 8.0 35 12/25/18 12:00 98 12/25/18 11:41 88 20 97 T-Piece 10.0 35 91 20 93 12/25/18 09:14 90 121/82 12/25/18 09:00 T-piece 8.0 Intake and Output 12/25/18 12/26/18 18:59 06:59 Intake Total 820 ml 760 ml Output Total 200 ml 385 ml Balance 620 ml 375 ml Free Water 160 ml 100 ml Tube Feeding 660 ml 660 ml Output Urine Total 200 ml 385 ml # Voids 1 # Bowel Movements 1 Laboratory Tests 12/26/18 03:53: White Blood Count 11.9H, Red Blood Count 2.67L, Hemoglobin 7.6L, Hematocrit 23.6L, Mean Corpuscular Volume 88, Mean Corpuscular Hemoglobin 28.3, Mean Corpuscular Hemoglobin Concent 32.1, Red Cell Distribution Width 14.5, Platelet Count 223, Mean Platelet Volume 5.1L, Neutrophils (%) (Auto) , Lymphocytes (%) ( Auto) , Monocytes (%) (Auto) , Eosinophils (%) (Auto) , Basophils (%) (Auto) , Sodium Level 142, Potassium Level 4.3, Chloride Level 104, Carbon Dioxide Level 33H, Anion Gap 5, Blood Urea Nitrogen 18, Creatinine 0.9, Estimat Glomerular Filtration Rate , Glucose Level 113H, Calcium Level 9.4 Height (Feet): 4 Height (Inches): 9.00 Weight (Pounds): 157 General Appearance: lethargic EENT: normal ENT inspection Neck: normal alignment Cardiovascular: normal peripheral pulses, normal rate, regular rhythm Respiratory/Chest: chest wall non-tender, lungs clear, normal breath sounds Abdomen: normal bowel sounds, non tender, soft Extremities: normal inspection Edema: no edema noted Arm (L), no edema noted Arm (R), no edema noted Leg (L), no edema noted Leg (R), no edema noted Pedal (L), no edema noted Pedal (R), no edema noted Generalized Neurologic: motor weakness Skin: normal pigmentation, warm/dry Dustin Willis DO Dec 26, 2018 08:47
[2018-12-26] MEDS: Colistin for inhalation INH SCH (10:22)
[2018-12-26 12:00] VITALS: BP 108/52
--- NOTE | 2018-12-26 12:00 | NUR ---
NURSE NOTES: Patient in bed, non verbal. opens eyes spontaneous. 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 Bilateral peripheral radial and pedal pulses weak. lungs on auscultation diminished. moderate oral/tracheo secretions, mild yellow and white. pt trach shiley6, T-piece, FIo2 35%. Abdomen round, non tender. 1 medium , brownish-green, loose, bm. pt cleaned and reposition. pt GT connected to Jevity 1.2 at 55ml/hr. no residuals 100ml flush. pure wick,draining yellow urine, bladder flat. iv access Right FA 20G, dressing intact, TKO. Bed in lowest position, locked, side rails upx3. contact precautions in place. Will continue to monitor.
--- NOTE | 2018-12-26 12:11 | NUR ---
*-* DISCHARGE PLANNING *-* PATIENT HAS BEEN REFERRED BACK TO: [facility] P: [phone] F: [phone]
--- NOTE | 2018-12-26 12:12 | NUR ---
NURSE NOTES: CALLED [facility] REGARDING PT VRE STATUS FOR POSSIBLE RESULT OF COLONIZATION, AND CORRECT MED REC. SPOKE WITH XAVIER. CALLS TO INFORM ON HIS WAY TO SEE PT. OK TO PROCEED WITH D/C.
--- NOTE | 2018-12-26 12:38 | Pulmonology Progress Note ---
Assessment/Plan Assessment/Plan IMPRESSION: Malfunctioning J-tube, chronic vegetative state, respiratory failure, tracheostomy, minimal leukocytosis, anemia, mild azotemia, moderate protein-calorie malnutrition, chronic encephalopathy, hypothyroidism. PLAN daughter does not want transfusion ID for antibiotics- noted respiratory care monitor use of feeding tube supportive care as is aspiration precautions dc planning to snf today impression, plan, and exam edited and reviewed in detail care discussed with RN Subjective ROS Limited/Unobtainable: Yes Allergies: Coded Allergies: CODEINE (Verified Allergy, Unknown, HIVES, 09/15/09) Subjective care noted d/w gi daughter does not want transfusion ID noted on inhaled colisting imaging reviewed Objective Last 24 Hour Vital Signs Date Time Temp Pulse Resp B/P (MAP) Pulse Ox O2 Delivery O2 Flow Rate FiO2 12/26/18 10:42 77 20 100 T-Piece 10.0 35 77 20 100 12/26/18 10:30 76 20 100 T-Piece 10.0 35 77 20 99 12/26/18 08:45 85 143/98 12/26/18 08:00 8.0 35 12/26/18 08:00 97.9 85 20 143/98 (113) 100 12/26/18 07:35 82 21 100 T-Piece 10.0 35 77 20 100 12/26/18 07:25 100 T-Piece 10.0 35 12/26/18 04:00 98.1 86 20 128/70 (89) 100 12/26/18 04:00 8.0 35 12/26/18 04:00 84 12/26/18 03:41 87 18 99 T-Piece 10.0 35 89 18 99 12/26/18 03:34 84 12/26/18 01:10 98 T-Piece 10.0 35 12/26/18 00:00 98.0 83 20 142/68 (92) 100 12/26/18 00:00 8.0 35 12/25/18 23:32 86 12/25/18 23:08 86 18 99 T-Piece 10.0 35 87 20 99 12/25/18 22:12 83 20 99 T-Piece 10.0 35 79 20 99 12/25/18 21:00 T-piece 8.0 12/25/18 20:00 97.9 85 20 140/62 (88) 100 12/25/18 20:00 8.0 35 12/25/18 19:29 99 T-Piece 10.0 35 12/25/18 19:27 87 20 99 T-Piece 10.0 35 85 20 99 12/25/18 19:11 91 12/25/18 16:15 98.0 86 19 124/68 (86) 100 12/25/18 16:00 8.0 35 12/25/18 15:14 76 12/25/18 15:01 79 20 99 T-Piece 10.0 35 80 20 96 12/25/18 13:21 95 T-Piece 10.0 35 Intake and Output 12/25/18 12/26/18 18:59 06:59 Intake Total 820 ml 760 ml Output Total 200 ml 385 ml Balance 620 ml 375 ml Free Water 160 ml 100 ml Tube Feeding 660 ml 660 ml Output Urine Total 200 ml 385 ml # Voids 1 # Bowel Movements 1 Objective GENERAL: The patient is chronically ill female. resting HEENT: Overall negative. NECK: Supple. Tracheostomy is midline. Carotids 2+. LUNGS: scattered rhonchi. Moderate air entry. No wheezes. CARDIAC: S1, S2. Regular rate and rhythm without murmurs, rubs, gallops. ABDOMEN: Soft, nondistended. There is leaking from the stoma site. EXTREMITIES: No cyanosis or clubbing. The patient is contracted. NEUROLOGICAL: reduced level of consciousness. Microbiology Date/Time Source Procedure Growth Status 12/24/18 22:35 Blood Blood Culture - Preliminary NO GROWTH AFTER 24 HOURS Resulted 12/24/18 22:31 Blood Blood Culture - Preliminary NO GROWTH AFTER 24 HOURS Resulted 12/24/18 20:30 Sputum Gram Stain - Final Resulted 12/24/18 20:30 Sputum Sputum Culture Pending Resulted Laboratory Tests 12/26/18 03:53: White Blood Count 11.9H, Red Blood Count 2.67L, Hemoglobin 7.6L, Hematocrit 23.6L, Mean Corpuscular Volume 88, Mean Corpuscular Hemoglobin 28.3, Mean Corpuscular Hemoglobin Concent 32.1, Red Cell Distribution Width 14.5, Platelet Count 223, Mean Platelet Volume 5.1L, Neutrophils (%) (Auto) , Lymphocytes (%) ( Auto) , Monocytes (%) (Auto) , Eosinophils (%) (Auto) , Basophils (%) (Auto) , Sodium Level 142, Potassium Level 4.3, Chloride Level 104, Carbon Dioxide Level 33H, Anion Gap 5, Blood Urea Nitrogen 18, Creatinine 0.9, Estimat Glomerular Filtration Rate , Glucose Level 113H, Calcium Level 9.4 Current Medications Medications (Trade) Dose Ordered Sig/Maicol Route PRN Reason Start Time Stop Time Status Last Admin Dose Admin Albuterol Sulfate (Proventil) 2.5 mg Q4HRT HHN 12/23/18 19:00 12/28/18 18:59 12/26/18 10:32 Amlodipine Besylate (Norvasc) 10 mg DAILY GT 12/24/18 09:00 01/22/19 08:59 12/26/18 08:45 Colistimethate Sodium (Colistin *inhalation use only*) 150 mg Q12HR@ INH 12/24/18 22:00 12/31/18 21:59 12/26/18 10:22 Famotidine (Pepcid) 20 mg DAILY GT 12/24/18 09:00 01/22/19 08:59 12/26/18 08:39 Folic Acid (Folate) 1 mg DAILY GT 12/24/18 09:00 01/22/19 08:59 12/26/18 08:39 Levetiracetam (Keppra) 750 mg Q12HR GT 12/23/18 21:00 01/22/19 08:59 12/26/18 08:42 Ondansetron HCl (Zofran) 4 mg Q6H PRN GT Nausea & Vomiting 12/23/18 10:30 01/22/19 10:29 Polyethylene Glycol (Miralax) 17 gm DAILY GT 12/24/18 09:00 01/22/19 08:59 12/26/18 08:42 Zolpidem Tartrate (Ambien) 5 mg BEDTIME PRN GT Insomnia 12/23/18 21:00 12/30/18 03:29 Amaury Chan MD Dec 26, 2018 12:38
--- NOTE | 2018-12-26 12:42 | NUR ---
NURSE NOTES: CALLED MD SMITH TO CLARIFY VERBAL ORDER FOR D/C, STATES WILL PLACE OWN D/C FOR PT. EDITOR GREETING CARD INFORMED
--- NOTE | 2018-12-26 14:03 | NUR ---
NURSE NOTES: Dr. Vaughan cleared patient for discharge,Daughter notified patient discharge back to [facility],thankful for call
--- NOTE | 2018-12-26 14:35 | Infectious Diseases Prog Note ---
Assessment/Plan Assessment/Plan A: 83 yo female w Mild Leukocytosis, Sp Probable Trachitis (pt has thick Resp. secretions) CXR:12/25 Limited evaluation. Probable mild pulmonary vascular congestion. CXR 12/22 : Pulmonary vascular congestion may be present. Tracheostomy noted. Heart size is normal. The findings are stable and unchanged. CXR 12/14/18 showed Reduced lung volumes and interstitial pulmonary opacities. Edema vs pneumonia. CXR 12/15/18 did not show any opacities 12/14 Scx: ACB Anemia CVA s/p Trach and Peg Not verbal CHF HTN Hypothyroid Alzheimer dementia Seizures PLAN: - Continue Colistin INH # 3/, ok to DC pt on INH colistin - f/u Sputum / Blood / urine Cx - Monitor CBC and Temps - Monitor CXR Subjective Allergies: Coded Allergies: CODEINE (Verified Allergy, Unknown, HIVES, 09/15/09) Subjective DC today Objective Vital Signs Last 24 Hour Vital Signs Date Time Temp Pulse Resp B/P (MAP) Pulse Ox O2 Delivery O2 Flow Rate FiO2 12/26/18 12:40 100 T-Piece 10.0 35 12/26/18 12:00 8.0 35 12/26/18 12:00 98.2 75 22 108/52 (70) 100 12/26/18 12:00 T-piece 8.0 12/26/18 12:00 82 12/26/18 10:42 77 20 100 T-Piece 10.0 35 77 20 100 12/26/18 10:30 76 20 100 T-Piece 10.0 35 77 20 99 12/26/18 09:00 T-piece 8.0 12/26/18 08:45 85 143/98 12/26/18 08:00 8.0 35 12/26/18 08:00 97.9 85 20 143/98 (113) 100 12/26/18 08:00 76 12/26/18 07:35 82 21 100 T-Piece 10.0 35 77 20 100 12/26/18 07:25 100 T-Piece 10.0 35 12/26/18 04:00 98.1 86 20 128/70 (89) 100 12/26/18 04:00 8.0 35 12/26/18 04:00 84 12/26/18 03:41 87 18 99 T-Piece 10.0 35 89 18 99 12/26/18 03:34 84 12/26/18 01:10 98 T-Piece 10.0 35 12/26/18 00:00 98.0 83 20 142/68 (92) 100 12/26/18 00:00 8.0 35 12/25/18 23:32 86 12/25/18 23:08 86 18 99 T-Piece 10.0 35 87 20 99 12/25/18 22:12 83 20 99 T-Piece 10.0 35 79 20 99 12/25/18 21:00 T-piece 8.0 12/25/18 20:00 97.9 85 20 140/62 (88) 100 12/25/18 20:00 8.0 35 12/25/18 19:29 99 T-Piece 10.0 35 12/25/18 19:27 87 20 99 T-Piece 10.0 35 85 20 99 12/25/18 19:11 91 12/25/18 16:15 98.0 86 19 124/68 (86) 100 12/25/18 16:00 8.0 35 12/25/18 15:14 76 12/25/18 15:01 79 20 99 T-Piece 10.0 35 80 20 96 Height (Feet): 4 Height (Inches): 9.00 Weight (Pounds): 157 HEENT: anicteric Respiratory/Chest: normal breath sounds Cardiovascular: regular rhythm Abdomen: no organomegaly Microbiology Date/Time Source Procedure Growth Status 12/24/18 22:35 Blood Blood Culture - Preliminary NO GROWTH AFTER 24 HOURS Resulted 12/24/18 22:31 Blood Blood Culture - Preliminary NO GROWTH AFTER 24 HOURS Resulted 12/24/18 20:30 Sputum Gram Stain - Final Resulted 12/24/18 20:30 Sputum Sputum Culture Pending Resulted Laboratory Tests Test 12/26/18 03:53 White Blood Count 11.9 K/UL (4.8-10.8) H Red Blood Count 2.67 M/UL (4.20-5.40) L Hemoglobin 7.6 G/DL (12.0-16.0) L Hematocrit 23.6 % (37.0-47.0) L Mean Corpuscular Volume 88 FL (80-99) Mean Corpuscular Hemoglobin 28.3 PG (27.0-31.0) Mean Corpuscular Hemoglobin Concent 32.1 G/DL (32.0-36.0) Red Cell Distribution Width 14.5 % (11.6-14.8) Platelet Count 223 K/UL (150-450) Mean Platelet Volume 5.1 FL (6.5-10.1) L Neutrophils (%) (Auto) % (45.0-75.0) Lymphocytes (%) (Auto) % (20.0-45.0) Monocytes (%) (Auto) % (1.0-10.0) Eosinophils (%) (Auto) % (0.0-3.0) Basophils (%) (Auto) % (0.0-2.0) Sodium Level 142 MMOL/L (136-145) Potassium Level 4.3 MMOL/L (3.5-5.1) Chloride Level 104 MMOL/L (98-107) Carbon Dioxide Level 33 MMOL/L (21-32) H Anion Gap 5 mmol/L (5-15) Blood Urea Nitrogen 18 mg/dL (7-18) Creatinine 0.9 MG/DL (0.55-1.30) Estimat Glomerular Filtration Rate mL/min (>60) Glucose Level 113 MG/DL (74-106) H Calcium Level 9.4 MG/DL (8.5-10.1) Current Medications Medications (Trade) Dose Ordered Sig/Maicol Route PRN Reason Start Time Stop Time Status Last Admin Dose Admin Albuterol Sulfate (Proventil) 2.5 mg Q4HRT HHN 12/23/18 19:00 12/28/18 18:59 12/26/18 10:32 Amlodipine Besylate (Norvasc) 10 mg DAILY GT 12/24/18 09:00 01/22/19 08:59 12/26/18 08:45 Colistimethate Sodium (Colistin *inhalation use only*) 150 mg Q12HR@10,22 INH 12/24/18 22:00 12/31/18 23:00 12/26/18 10:22 Famotidine (Pepcid) 20 mg DAILY GT 12/24/18 09:00 01/22/19 08:59 12/26/18 08:39 Folic Acid (Folate) 1 mg DAILY GT 12/24/18 09:00 01/22/19 08:59 12/26/18 08:39 Levetiracetam (Keppra) 750 mg Q12HR GT 12/23/18 21:00 01/22/19 08:59 12/26/18 08:42 Ondansetron HCl (Zofran) 4 mg Q6H PRN GT Nausea & Vomiting 12/23/18 10:30 01/22/19 10:29 Polyethylene Glycol (Miralax) 17 gm DAILY GT 12/24/18 09:00 01/22/19 08:59 12/26/18 08:42 Zolpidem Tartrate (Ambien) 5 mg BEDTIME PRN GT Insomnia 12/23/18 21:00 12/30/18 03:29 Vikas Ovalles MD Dec 26, 2018 14:35
--- NOTE | 2018-12-26 14:57 | NUR ---
NURSE NOTES: CALLED [facility], SPOKE WITH ESTEBAN PAEZ. USING SBAR, PT GOING TO ROOM 210-A. ALL QUESTIONS ANSWERED. ETA [id number]
--- NOTE | 2018-12-26 16:08 | General Progress Note ---
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 tolerating TF d/c planning noted Objective Last 24 Hour Vital Signs Date Time Temp Pulse Resp B/P (MAP) Pulse Ox O2 Delivery O2 Flow Rate FiO2 12/26/18 14:57 83 20 100 T-Piece 10.0 35 81 21 100 12/26/18 12:40 100 T-Piece 10.0 35 12/26/18 12:00 8.0 35 12/26/18 12:00 98.2 75 22 108/52 (70) 100 12/26/18 12:00 T-piece 8.0 12/26/18 12:00 82 12/26/18 10:42 77 20 100 T-Piece 10.0 35 77 20 100 12/26/18 10:30 76 20 100 T-Piece 10.0 35 77 20 99 12/26/18 09:00 T-piece 8.0 12/26/18 08:45 85 143/98 12/26/18 08:00 8.0 35 12/26/18 08:00 97.9 85 20 143/98 (113) 100 12/26/18 08:00 76 12/26/18 07:35 82 21 100 T-Piece 10.0 35 77 20 100 12/26/18 07:25 100 T-Piece 10.0 35 12/26/18 04:00 98.1 86 20 128/70 (89) 100 12/26/18 04:00 8.0 35 12/26/18 04:00 84 12/26/18 03:41 87 18 99 T-Piece 10.0 35 89 18 99 12/26/18 03:34 84 12/26/18 01:10 98 T-Piece 10.0 35 12/26/18 00:00 98.0 83 20 142/68 (92) 100 12/26/18 00:00 8.0 35 12/25/18 23:32 86 12/25/18 23:08 86 18 99 T-Piece 10.0 35 87 20 99 12/25/18 22:12 83 20 99 T-Piece 10.0 35 79 20 99 12/25/18 21:00 T-piece 8.0 12/25/18 20:00 97.9 85 20 140/62 (88) 100 12/25/18 20:00 8.0 35 12/25/18 19:29 99 T-Piece 10.0 35 12/25/18 19:27 87 20 99 T-Piece 10.0 35 85 20 99 12/25/18 19:11 91 12/25/18 16:15 98.0 86 19 124/68 (86) 100 Intake and Output 12/25/18 12/26/18 19:00 07:00 Intake Total 875 ml 705 ml Output Total 200 ml 385 ml Balance 675 ml 320 ml Free Water 160 ml 100 ml Tube Feeding 715 ml 605 ml Output Urine Total 200 ml 385 ml # Voids 1 # Bowel Movements 1 Laboratory Tests 12/26/18 03:53: White Blood Count 11.9H, Red Blood Count 2.67L, Hemoglobin 7.6L, Hematocrit 23.6L, Mean Corpuscular Volume 88, Mean Corpuscular Hemoglobin 28.3, Mean Corpuscular Hemoglobin Concent 32.1, Red Cell Distribution Width 14.5, Platelet Count 223, Mean Platelet Volume 5.1L, Neutrophils (%) (Auto) , Lymphocytes (%) ( Auto) , Monocytes (%) (Auto) , Eosinophils (%) (Auto) , Basophils (%) (Auto) , Sodium Level 142, Potassium Level 4.3, Chloride Level 104, Carbon Dioxide Level 33H, Anion Gap 5, Blood Urea Nitrogen 18, Creatinine 0.9, Estimat Glomerular Filtration Rate , Glucose Level 113H, Calcium Level 9.4 Height (Feet): 4 Height (Inches): 9.00 Weight (Pounds): 157 Objective Debilitated AA woman NCAT (+) trachestomy CTA RR abd soft NT ND , GT noted (+) contracted OBS Celio Vaughan MD Dec 26, 2018 16:07
[2018-12-26] MEDS ORDERED: Sterile Water For Irrig 2000ml IRRIG ONE (18:32)
--- NOTE | 2018-12-26 19:53 | NUR ---
NURSE NOTES: [facility] HERE TO TRANSPORT PT TO FACILITY. VSS. D/C IV, REPORT GIVEN USING SBAR. NO BELONGINGS.
--- NOTE | 2018-12-28 10:00 | Discharge Summary ---
Discharge Summary Discharge Summary _ DATE OF ADMISSION: 12/24/2018 DATE OF DISCHARGE: 12/26/2018 DISCHARGED BY: Dr. Prasanna Chan CONSULTANTS: Dr. Celio Ovalles BRIEF HOSPITAL COURSE: Patient is an 83-year-old female, from [facility], presented to ED for G-tube malfunction. Patient has a history of G-tube and G- tube placement. Patient is ventilator dependent, tracheostomy dependent, chronically debilitated, chronically bedbound. She has medical history notable for congestive heart failure, hypothyroidism, dementia, CVA, history of seizures , functional quadriplegia and anemia. Upon evaluation at the ED, blood work showed WBC 11.7. Hemoglobin 8, hematocrit 26. Electrolytes were normal. Kidney function normal. Patient was admitted for evaluation of obstructed J-tube. She was admitted to stepdown unit. He was given IV hydration. GI was consulted. Patient had difficulty with gastrostomy tube feeding, and feeding was converted to jejunostomy. She presented with a jejunostomy port conversion, although gastrostomy port was functional. Unclear if patient had aspiration. Patient was given trial of gastrostomy tube feeding, with close monitoring of residual. She was placed on strict aspiration precautions. Head of bed elevated at all times. If patient unable to tolerate gastrostomy feeding, then would undergo jejunostomy conversion. She was given supportive care. She was resumed usp medications. Resumed seizure medications. Patient has very thick respiratory secretions. Probable tracheitis. Sputum culture showed growth of E. coli and Providentia. ID was consulted. She was given inhaled colistin. Patient daughter agreed to downgrading back to basic G-tube. Patient not wish to have any further GI work-up regarding anemia given patient's poor health. Daughter did not want blood transfusion. Patient was tolerating G-tube feeding well. Blood culture did not isolate any growth. Urine culture with Proteus. She was eventually cleared for discharge back to [facility]. To continue G-tube feeding. FINAL DIAGNOSES: Dysphagia status post G-tube Status post G-tube to J-tube conversion, now back to GT PriorProb bald tracheitisable tracheitis Anemia Respiratory failure, trach dependent Organic brain syndrome, Alzheimer's dementia Seizures Hypertension Hypothyroidism CHF Chronic vegetative state, Mild azotemia Moderate protein calorie malnutrition Chronic encephalopathy DISPOSITION: Patient was discharged back to SNF I have been assigned to complete a discharge summary on this account, I was not involved with the patient's management.--PHYLLIS Bobby Jacqueline Robles NP Dec 28, 2018 10:00
== END 2018-12-26 18:33 | DRG 394 ==
LOC: EDBD 21:08 → EMR 21:41 → 2W 22:44 → INTOOBSV 22:44 → EDBEDREQ 23:03 → 2E 12-23 08:16 → 2W 12-23 10:25 → OBSVTOIN 12-24 18:59
DX: K94.13 Enterostomy malfunction (principal); E44.0 Moderate protein-calorie malnutrition; R40.3 Persistent vegetative state; J96.10 Chronic respiratory failure, unspecified whether with hypoxia or hypercapnia; G93.40 Encephalopathy, unspecified; Z99.11 Dependence on respirator [ventilator] status; Y83.3 Surgical operation with formation of external stoma as the cause of abnormal reaction of the patient, or of later complication, without mention of misadventure at the time of the procedure; E03.9 Hypothyroidism, unspecified; Z43.0 Encounter for attention to tracheostomy; K21.9 Gastro-esophageal reflux disease without esophagitis; I11.0 Hypertensive heart disease with heart failure; G30.9 Alzheimer's disease, unspecified; F02.80 Dementia in other diseases classified elsewhere, unspecified severity, without behavioral disturbance, psychotic disturbance, mood disturbance, and anxiety; J04.10 Acute tracheitis without obstruction; Z88.6 Allergy status to analgesic agent; Z86.73 Personal history of transient ischemic attack (TIA), and cerebral infarction without residual deficits; R13.10 Dysphagia, unspecified; D64.9 Anemia, unspecified; F09 Unspecified mental disorder due to known physiological condition; R56.9 Unspecified convulsions
CPT/HCPCS: 36415; 71045; 80048; 80053; 85007; 85025; 85610; 85730; 86850; 86900; 86901; 86920; 87040; 87070; 87081; 87086; 87181; 87205; 93005; 94640; 94664; 96360; 96361; 99285

== ENCOUNTER 2019-01-23 22:07 | Inpatient (IN) | payer MEDICARE, MEDICAID ==
[~2019-01-23] VITALS: Ht 160 cm; Wt 60.3 kg
[~2019-01-23 22:07] MED LIST changes: +AMLODIPINE BESY10 MG GT; +FAMOTIDINE20 MG GT; +FERROUS SU220 MG/51 GT; +FOLIC ACID0.4 MG GT; +FOLIC ACID1 MG GT; +KEPPRA750 MG GT; +MIRALAX17 G2 GT; +PROMOD946 ML GT; +ZOFRAN4 M1 GT; +ZOLPIDEM TARTRAT5 MG GT
[2019-01-23] MEDS ORDERED: Albuterol ud Inhalation HHN ONE (22:15)
[2019-01-23 22:20] VITALS: BP 135/72
--- NOTE | 2019-01-23 22:20 | NUR ---
ED Nurse Note: Pt nonveval, no sign of distress. Family at bedside. VSS pulse is 97. Pt brought in by ambulance [address] [facility] c/o shortness of breath. Per EMS, pt had HR greater than 120, "junky lung sounds". Pt on a vent and newly placed trach Shiely size 6 cuffed; was bagged at triage. Pt baseline , unable to assess mental status.
--- NOTE | 2019-01-23 22:27 | Emergency Room Report ---
History of Present Illness General Chief Complaint: Dyspnea/Respdistress Source: Medical Record, EMS Present Illness HPI This an 83-year-old female with multiple medical problem. She also has a history of tracheostomy feeding tube. She has a history of vent dependent respiratory failure. She presents with complaint of respiratory distress. Onset for the last few days but today had been placed back on the ventilator. She has increasing work of breathing. Lungs sound rhonchorous. No reported fever chills but no nausea or vomiting. Similar symptom in the past. History is limited on this patient because she is nonverbal. Allergies: Coded Allergies: CODEINE (Verified Allergy, Unknown, HIVES, 09/15/09) Patient History Past Medical History: see triage record, old chart reviewed Past Surgical History: other Pertinent Family History: none Social History: Denies: smoking Now: No Immunizations: other Reviewed Nursing Documentation: PMH: Agreed; PSxH: Agreed Nursing Documentation-PMH Hx Cardiac Problems: Yes Hx Hypertension: Yes Hx Cancer: Yes Hx Gastrointestinal Problems: Yes - GASTROSTOMY, Hx Neurological Problems: Yes - Alzheimer Hx Cerebrovascular Accident: Yes - HX OF CVA Hx Transient Ischemic Attacks: Yes - DR. Cori GALARZA STATED POSSIBLE TIA Hx Dementia: Yes Hx Alzheimer's Disease: Yes Hx Seizures: Yes - 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 Hx Epilepsy: Yes Hx Memory Loss: Yes Hx Aphasia: Yes Review of Systems Eye: Denies: eye pain, blurred vision ENT: Denies: ear pain, nose congestion, throat swelling Respiratory: Reports: cough, shortness of breath Cardiovascular: Denies: chest pain, palpitations Gastrointestinal: Denies: abdominal pain, diarrhea, nausea, vomiting Musculoskeletal: Denies: back pain, joint pain Skin: Denies: rash Neurological: Denies: headache, numbness Endocrine: Denies: increased thirst, increased urine Hematologic/Lymphatic: Denies: easy bruising All Other Systems: negative except mentioned in HPI Physical Exam Vital Signs Date Time Temp Pulse Resp B/P (MAP) Pulse Ox O2 Delivery O2 Flow Rate FiO2 01/23/19 22:12 97 Trach Collar Vitals with hypoxia Sp02 EP Interpretation: reviewed, abnormal General Appearance: alert, moderate distress, obese, Chronically Ill Head: normocephalic, atraumatic Eyes: bilateral eye PERRL, bilateral eye EOMI ENT: hearing grossly normal, normal pharynx Neck: no meningismus, other - Neck is very stiff., tracheotomy Respiratory: chest non-tender, respiratory distress, decreased breath sounds, accessory muscle use, crackles, rhonchi Cardiovascular #1: regular rate, rhythm, no murmur Gastrointestinal: normal bowel sounds, non tender, no mass, no organomegaly, no bruit, non-distended, other - G-Tube Rectal: other - large amount of black stool Musculoskeletal: other - Contracted, decubital ulcers Neurologic: alert Skin: Decubitus/Ulcer Lymphatic: normal inspection Procedures Critical Care Time Critical Care Time Critical care is mandated in this patient who presented with secondary to pneumonia. Patient require my urgent intervention to attenuate the risks of metabolic collapse which may lead to cardiovascular collapse and . Critical care time is 35 minutes excluding any reportable procedure. Critical care time included evaluation, multiple reevaluation, looking at old charts, interpreting laboratory and diagnostic data, discussing case with patient and family and consultants, and charting. Medical Decision Making Diagnostic Impression: Primary Impression: Sepsis Qualified Codes: A41.9 - Sepsis, unspecified organism Additional Impressions: HCAP (healthcare-associated pneumonia) Respiratory failure with hypoxia Qualified Codes: J96.21 - Acute and chronic respiratory failure with hypoxia Anemia Qualified Codes: D64.9 - Anemia, unspecified ER Course Patient presents with respiratory distress secondary to pneumonia. She has sepsis. She is also very dry since there is only a couple of drops of urine with Camp insertion. She has a very large black stool. No severe strong malodorous smell like melena. Daughter states she does have anemia and given iron at the [facility]. Vitals improved after IV hydration. Last month she grew out E. coli and poor denture on the sputum culture. She also grew out Klebsiella and Proteus on the urine culture. Zosyn and Levaquin given based on cultures results. Patient will be admitted for IV antibiotics and IV hydration. I discussed the CODE STATUS with her daughter who has power of workers compensation attorney. Patient is a DNR. No CPR. Okay for medication. Daughters are equivocal on central line and pressors. They said that they will discuss the case if it gets to that point. I contacted Dr. hCan for admission. EKG Diagnostic Results Rate: normal Rhythm: NSR ST Segments: no acute changes Rhythm Strip Diag. Results EP Interpretation: yes Rate: 93 Rhythm: NSR, no PVC's, no ectopy Chest X-Ray Diagnostic Results Chest X-Ray Diagnostic Results : Chest X-Ray Ordered: Yes # of Views/Limited/Complete: 1 View Indication: Shortness of Breath EP Interpretation: Yes Interpretation: no effusion, no pneumothorax, other - Bibasilar infiltrates. Impression: Other - bibasilar infiltrates Electronically Signed by: Jonas Todd MD Last Vital Signs Date Time Temp Pulse Resp B/P (MAP) Pulse Ox O2 Delivery O2 Flow Rate FiO2 01/23/19 22:12 97 Trach Collar Status: improved Disposition: ADMITTED INPATIENT Condition: Serious Jonas Todd MD Jan 23, 2019 22:27
[2019-01-23] MEDS ORDERED: ACETAMINOPHEN120 MG GT (22:28)
[2019-01-23] MEDS ORDERED: SENNA8.6 M2 GT (22:28)
[2019-01-23] MEDS ORDERED: ALBUTEROL2.5 MG/0.1 IH (22:28)
[2019-01-23] MEDS ORDERED: BISACODYL5 MG RECTAL (22:28)
[2019-01-23] MEDS ORDERED: COLACE100 MG GT (22:28)
[2019-01-23] MEDS ORDERED: [UNRECOGNIZED DRUG - OTHER] TP (22:28)
[2019-01-23] MEDS ORDERED: COLISTIN150 MG INH (22:28)
[2019-01-23 22:48] LABS: EOSINOPHILS % (AUTO) 1.3 % (0.0-3.0); HEMATOCRIT 30.5 % (37.0-47.0); HEMOGLOBIN 9.6 G/DL (12.0-16.0); LYMPHOCYTES % (AUTO) 15.6 % (20.0-45.0); MEAN CORPUSCULAR VOLUME 87 FL (80-99); MONOCYTES % (AUTO) 4.5 % (1.0-10.0); NEUTROPHILS % (AUTO) 77.6 % (45.0-75.0); PLATELET COUNT 237 K/UL (150-450); RED BLOOD COUNT 3.52 M/UL (4.20-5.40); RED CELL DISTRIBUTION WIDTH 16.2 % (11.6-14.8); WHITE BLOOD COUNT 11.6 K/UL (4.8-10.8)
--- NOTE | 2019-01-23 22:50 | NUR ---
ED Nurse Note: Blood work sent to lab.
[2019-01-23 22:54] LABS: ANION GAP 5 mmol/L (5-15); BLOOD UREA NITROGEN 28 mg/dL (7-18); CALCIUM 10.1 MG/DL (8.5-10.1); CARBON DIOXIDE 36 MMOL/L (21-32); CHLORIDE 99 MMOL/L (98-107); CREATININE 1.2 MG/DL (0.55-1.30); POTASSIUM 4.4 MMOL/L (3.5-5.1); SODIUM 140 MMOL/L (136-145)
[2019-01-23] MEDS ORDERED: Piperacillin/Tazobactam 3.375 GM in NS 110 ML IVPB ONE (23:00)
--- NOTE | 2019-01-23 23:00 | NUR ---
ED Nurse Note: Haveing trouble with IV access. MD notified.
[2019-01-23 23:08] LABS: ALANINE AMINOTRANSFERASE 38 U/L (12-78); ALBUMIN 2.9 G/DL (3.4-5.0); ALBUMIN/GLOBULIN RATIO 0.5 (1.0-2.7); ALKALINE PHOSPHATASE 177 U/L (46-116); ASPARTATE AMINO TRANSFERASE 25 U/L (15-37); BILIRUBIN,TOTAL 0.2 MG/DL (0.2-1.0); CKMB 0.8 NG/ML (0.0-3.6); CREATINE KINASE 68 U/L (26-308)
[2019-01-23 23:40] VITALS: BP 150/80
--- NOTE | 2019-01-24 01:20 | NUR ---
ED Nurse Note: Family was contacted and consent for cental line was given. Family stated that they will come back to ED.
[2019-01-24 01:30] VITALS: BP 171/72
--- NOTE | 2019-01-24 01:32 | Emergency Room Report ---
History of Present Illness General Chief Complaint: Dyspnea/Respdistress Source: Medical Record, EMS Present Illness Allergies: Coded Allergies: CODEINE (Verified Allergy, Unknown, HIVES, 09/15/09) Patient History Now: No Nursing Documentation-PMH Hx Cardiac Problems: Yes Hx Hypertension: Yes Hx Cancer: Yes Hx Gastrointestinal Problems: Yes - GASTROSTOMY, Hx Neurological Problems: Yes - Alzheimer Hx Cerebrovascular Accident: Yes - HX OF CVA Hx Transient Ischemic Attacks: Yes - DR. Cori GALARZA STATED POSSIBLE TIA Hx Dementia: Yes Hx Alzheimer's Disease: Yes Hx Seizures: Yes - 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 Hx Epilepsy: Yes Hx Memory Loss: Yes Hx Aphasia: Yes Physical Exam Vital Signs Date Time Temp Pulse Resp B/P (MAP) Pulse Ox O2 Delivery O2 Flow Rate FiO2 01/23/19 22:12 98.4 98 13 131/68 (89) 97 Trach Collar 01/23/19 22:20 35 01/23/19 22:20 50.0 Procedures Central Line Central Line : Consent: Written Central Line Lumen: triple Maximal Sterile Barrier Tech: yes cap, yes mask, yes sterile gown, yes sterile gloves, yes large sterile sheet, yes hand hygiene, yes chlorhexidine prep Central Line Postion: femoral (R) Anesthesia: Lidocaine cc's of anesthesia: 10 Complications: none Central Line Post Position: sutured, good blood return Attempts: One Patient Tolerated: Well Complications: None Medical Decision Making Diagnostic Impression: Primary Impression: Sepsis Qualified Codes: A41.9 - Sepsis, unspecified organism Additional Impressions: Respiratory failure with hypoxia Qualified Codes: J96.21 - Acute and chronic respiratory failure with hypoxia HCAP (healthcare-associated pneumonia) Anemia Qualified Codes: D64.9 - Anemia, unspecified ER Course Patient is a very poor IV access. I placed to EJ's but eventually they infiltrated. Patient needed IV fluid and IV antibiotics. I was unable to get any IV access on her extremity even using ultrasound. I placed a right femoral triple-lumen under sterile condition. Last Vital Signs Date Time Temp Pulse Resp B/P (MAP) Pulse Ox O2 Delivery O2 Flow Rate FiO2 01/24/19 01:18 80 14 35 01/23/19 23:35 100 Mechanical Ventilator 50.0 100 01/23/19 22:12 98.4 131/68 (89) Disposition: ADMITTED INPATIENT Condition: Serious Referrals: Amaury Chan MD (PCP) Jonas Todd MD Jan 24, 2019 01:32
--- NOTE | 2019-01-24 01:51 | NUR ---
ED Nurse Note: Urine sent to lab.
[2019-01-24 02:03] LABS: APPEARANCE,URINE CLEAR; BILIRUBIN, URINE NEGATIVE (NEGATIVE); COLOR,URINE PALE YELLOW; GLUCOSE, URINE (UA) NEGATIVE (NEGATIVE); KETONES,URINE NEGATIVE (NEGATIVE); LEUKOCYTE ESTERASE ,URINE NEGATIVE (NEGATIVE); NITRITE,URINE NEGATIVE (NEGATIVE); PH,URINE 9 (4.5-8.0); PROTEIN,URINE 2+ (NEGATIVE); UROBILINOGEN,URINE NORMAL MG/DL (0.0-1.0)
--- NOTE | 2019-01-24 02:10 | NUR ---
Musa mccabe in EDM - 01/24/19 at 0534 by [facility]RAY ED Nurse Note: Dr. Todd informed me to report to the receiving nurse not to call the admitting MD until the morning due to bridging orders being in place. I reported to JEANNINE Elaine this information.
--- NOTE | 2019-01-24 02:15 | NUR ---
ED Nurse Note: Report given to JEANNINE Rehman.
--- NOTE | 2019-01-24 02:19 | NUR ---
NURSE NOTES: Fabiano Morgan RN called and gave report on Pt. awaiting pt to arrive to unit.
--- NOTE | 2019-01-24 02:40 | NUR ---
TRANSFER TO FLOOR: Patient transferred to as ordered, per MD Jerel. Report given to JEANNINE Almonte. No Belonging. Family informed of transfer.
--- NOTE | 2019-01-24 03:00 | NUR ---
NURSE NOTES: Pt arrived on unit with Enoc PAEZ and Lokesh al. pt appears stable. Vital signs stable. pt is obtunded. pt is on laboratory monitor showing NSR, no distress noted. pt on a trach to vent satting at 100%, no distress noted. pt bed is low, locked, armed, bed rails up times 3, call light within reach. will establish plan of care.
--- NOTE | 2019-01-24 03:30 | NUR ---
NURSE NOTES: Spoke with MD Beltrán in regards to admitting orders. reported pt vitals, status, labs, code status and admitting diagnosis. pt stated to continue all reconciled and home/ correction meds. additionally, stated to start Pt on Heparin Sub Q ever 12 hrs, Zosyn 3.375 GM IV Q8, Vanco Pharm to dose, and to adjust ERMD order of G tube feeding Glucerna 1.5 from 100cc adjusted to 30cc/hr. will follow orders.
--- NOTE | 2019-01-24 03:30 | NUR ---
NURSE NOTES: previous (healed) pressure ulcers noted on R buttock (near ischium), and previous (healed) pressure ulcer noted on sacral area. previous (healed) pressure ulcer noted on L buttock (near ischium), however appears reopened. Optifoam in place until further ordered. special agent in chargeJEANNINE correa. endorsed to MD Beltrán. will follow wound protocol.
[2019-01-24 04:00] VITALS: BP 122/78
[2019-01-24] MEDS ORDERED: FERROUS SULFAT325 MG ORAL (05:21)
[2019-01-24] MEDS ORDERED: KEPPRA750 MG ORAL (05:21)
[2019-01-24] MEDS ORDERED: Colistin for inhalation INH PRN (05:30)
[2019-01-24] MEDS ORDERED: Docusate 100mg/10ml Liq ORAL PRN (05:30)
[2019-01-24] MEDS ORDERED: Zolpidem 5mg tab GT PRN (05:30)
[2019-01-24] MEDS ORDERED: Docusate 100mg/10ml Liq GT PRN (05:45)
[2019-01-24] MEDS: Piperacillin/Tazobactam 3.375 GM in NS 110 ML IVPB SCH ×3 (06:14→21:44)
--- NOTE | 2019-01-24 07:00 | NUR ---
HAND-OFF: Report given to Ivy PAEZ ICU GEOVANY. Pt remains stable.
--- NOTE | 2019-01-24 07:15 | NUR ---
NURSE NOTES: Received report from JEANNINE Almonte. Pt is non verbal, obtunded, opens eyes spontaneously; however not able to track, not able to follow commands. pt is on mold swabber showing NSR. Trach to vent, Shiley #6, AC 14, TV 500, FiO2 35%, O2Sat 100%, no distress noted. Rt femoral triple lumen catheter intact, patent, and asymptomatic- TKO @ 5mL/hr. GTube noted and patent, running Glucerna 1.5 @ 30mL/hr. LT buttock wound noted, wound consult initiated. Pt bed is low, locked, armed, bed rails up times 3, call light within reach. Will resume plan of care.
[2019-01-24 08:00] VITALS: BP 146/74
[2019-01-24] MEDS: levETIRAcetam 500mg/5ml Liquid GT SCH ×2 (09:59→17:05)
[2019-01-24] MEDS: Ferrous Sulfate 300 MG/5 ML UDC GT SCH ×2 (10:00→17:05)
[2019-01-24] MEDS: Miralax 17gm pkt GT SCH (10:00)
[2019-01-24] MEDS: Heparin 5000 units/ml inj SUBQ SCH ×2 (10:05→21:47)
[2019-01-24] MEDS: Vancomycin 1gm in D5W 275ml IVPB SCH (10:05)
--- NOTE | 2019-01-24 10:07 | Pulmonology Progress Note ---
Assessment/Plan Assessment/Plan Pulmonary Consultation HPI This an 83-year-old female with history of tracheostomy, VDRF, feeding tube, admitted with Pneumonia, respiratory distress. She had increased work of breathing and had to be placed back on the ventilator. No reported fever chills but no nausea or vomiting. History is limited on this patient because she is nonverbal. S/p central line in ED Allergies: CODEINE Past Medical History: VDRF, Trach, G tube, Hypertension, Cardiac disease, Dementia, Previous CVA, TIA, Seizure disorder, previous cancer Pertinent Family History: none Social History: No smoking All Other Systems: negative except mentioned in HPI Physical Exam Vital Signs Noted Sp02 EP Interpretation: reviewed, abnormal General Appearance: alert, moderate distress, obese, Chronically Ill Head: normocephalic, atraumatic Eyes: bilateral eye PERRL, bilateral eye EOMI ENT: hearing grossly normal, normal pharynx, no LN, Trach CDI Neck: no meningismus, other - Neck is very stiff., tracheotomy Respiratory: chest non-tender, respiratory distress, decreased breath sounds, accessory muscle use, crackles, rhonchi Cardiovascular: regular rate, rhythm, no murmur, HS1, HS2, RRR Gastrointestinal: normal bowel sounds, non tender, no mass, no organomegaly, no bruit, non-distended, G-Tube Musculoskeletal: other - Contracted, decubital ulcers Neurologic: awake, generally weak, no seizures Skin: Decubitus/Ulcer Procedures Impression: Sepsis Pneumonia VDRF, Trach, G tube, Hypertension, Cardiac disease, Dementia, Previous CVA, TIA , Seizure disorder, previous cancer Respiratory failure with hypoxia Anemia Plan IV Antibiotics IVF DETECTIVE HOMICIDE SQUAD medications ACV as required HHN O2 adjust as neccessary Monitor labs PPX Patient is a DNR. No CPR. EKG: Rate: normal Rhythm: NSR ST Segments: no acute changes Chest X-Ray: no effusion, no pneumothorax, other - Bibasilar infiltrates. Subjective ROS Limited/Unobtainable: No Allergies: Coded Allergies: CODEINE (Verified Allergy, Unknown, HIVES, 09/15/09) Objective Last 24 Hour Vital Signs Date Time Temp Pulse Resp B/P (MAP) Pulse Ox O2 Delivery O2 Flow Rate FiO2 01/24/19 09:41 75 01/24/19 08:08 35 01/24/19 08:00 Mechanical Ventilator 01/24/19 07:15 86 14 35 01/24/19 05:27 84 18 35 01/24/19 04:09 Mechanical Ventilator 01/24/19 04:00 35 01/24/19 04:00 98.6 78 20 122/78 (93) 100 01/24/19 04:00 Mechanical Ventilator 01/24/19 04:00 78 01/24/19 03:02 88 16 35 01/24/19 03:00 Mechanical Ventilator 01/24/19 02:40 98.2 89 22 168/70 97 Mechanical Ventilator 50.0 35 01/24/19 01:30 98.0 89 25 171/72 97 Mechanical Ventilator 50.0 35 01/24/19 01:18 80 14 35 01/23/19 23:40 98.7 89 20 150/80 100 Mechanical Ventilator 50.0 35 01/23/19 23:35 80 20 100 Mechanical Ventilator 50.0 35 80 20 100 01/23/19 22:50 98 14 35 01/23/19 22:20 98.8 90 14 135/72 97 Mechanical Ventilator 50.0 21 01/23/19 22:20 117 14 97 Mechanical Ventilator 50.0 21 01/23/19 22:20 98 19 Mechanical Ventilator 50.0 21 01/23/19 22:20 117 14 35 01/23/19 22:12 98.4 98 13 131/68 (89) 97 Trach Collar Intake and Output 01/23/19 01/24/19 19:00 07:00 Intake Total 2335.416 ml Balance 2335.416 ml Intake Oral 0 ml IV Total 2245.416 ml Tube Feeding 90 ml # Bowel Movements 3 Microbiology Date/Time Source Procedure Growth Status 01/24/19 02:26 Rectum Received Laboratory Tests 01/23/19 22:18: White Blood Count 11.6H, Red Blood Count 3.52L, Hemoglobin 9.6L, Hematocrit 30.5L, Mean Corpuscular Volume 87, Mean Corpuscular Hemoglobin 27.2, Mean Corpuscular Hemoglobin Concent 31.4L, Red Cell Distribution Width 16.2H, Platelet Count 237, Mean Platelet Volume 4.7L, Neutrophils (%) (Auto) 77.6H, Lymphocytes (%) (Auto) 15.6L, Monocytes (%) (Auto) 4.5, Eosinophils (%) (Auto) 1.3, Basophils (%) (Auto) 1.0, Prothrombin Time 10.6, Prothromb Time International Ratio 1.0, Activated Partial Thromboplast Time 25, Sodium Level 140, Potassium Level 4.4, Chloride Level 99, Carbon Dioxide Level 36H, Anion Gap 5, Blood Urea Nitrogen 28H, Creatinine 1.2, Estimat Glomerular Filtration Rate , Glucose Level 119H, Lactic Acid Level 1.50, Calcium Level 10.1, Total Bilirubin 0.2, Aspartate Amino Transf (AST/SGOT) 25, Alanine Aminotransferase ( ALT/SGPT) 38, Alkaline Phosphatase 177H, Total Creatine Kinase 68, Creatine Kinase MB 0.8, Creatine Kinase MB Relative Index 1.1, Troponin I 0.000, Total Protein 8.9H, Albumin 2.9L, Globulin 6.0, Albumin/Globulin Ratio 0.5L 01/24/19 01:30: Urine Color Pale yellow, Urine Appearance Clear, Urine pH 9, Urine Specific Chester 1.015, Urine Protein 2+H, Urine Glucose (UA) Negative, Urine Ketones Negative, Urine Blood 2+H, Urine Nitrite Negative, Urine Bilirubin Negative, Urine Urobilinogen Normal, Urine Leukocyte Esterase Negative, Urine RBC 2-4H, Urine WBC 0-2, Urine Squamous Epithelial Cells Occasional, Urine Bacteria Occasional Current Medications Medications (Trade) Dose Ordered Sig/Maicol Route PRN Reason Start Time Stop Time Status Last Admin Dose Admin Amlodipine Besylate (Norvasc) 10 mg DAILY GT 01/24/19 09:00 02/23/19 08:59 Bisacodyl (Dulcolax) 10 mg PRN PRN ORAL Constipation 01/24/19 05:30 02/23/19 05:29 UNV Colistimethate Sodium (Colistin *inhalation use only*) 150 mg Q12H PRN INH Shortness of breath 01/24/19 05:30 01/31/19 05:29 Docusate Sodium (Colace) 100 mg DAILY PRN GT Constipation 01/24/19 05:45 02/23/19 05:29 Famotidine (Pepcid) 20 mg DAILY GT 01/24/19 09:00 02/23/19 08:59 Ferrous Sulfate (Feosol) 300 mg BID GT 01/24/19 09:00 02/23/19 08:59 Folic Acid (Folate) 1 mg DAILY GT 01/24/19 09:00 02/23/19 08:59 Heparin Sodium (Porcine) (Heparin 5000 units/ml) 5,000 units EVERY 12 HOURS SUBQ 01/24/19 09:00 02/23/19 08:59 Levetiracetam (Keppra) 750 mg BID GT 01/24/19 09:00 02/23/19 08:59 Ondansetron HCl (Zofran) 4 mg Q6H PRN GT Nausea & Vomiting 01/24/19 05:30 02/23/19 05:29 Piperacillin Sod/ Tazobactam Sod 3.375 gm/Sodium Chloride 110 ml @ 27.5 mls/hr EVERY 8 HOURS IVPB 01/24/19 06:00 01/29/19 05:59 01/24/19 06:14 Polyethylene Glycol (Miralax) 17 gm DAILY GT 01/24/19 09:00 02/23/19 08:59 Vancomycin HCl (Vanco rx to dose) 1 ea DAILY MISC 01/24/19 09:00 02/23/19 08:59 Vancomycin HCl 1 gm/Dextrose 275 ml @ 183.708 mls/hr Q24H IVPB 01/24/19 10:00 01/29/19 09:59 Zolpidem Tartrate (Ambien) 5 mg BEDTIME PRN GT Insomnia 01/24/19 05:30 01/31/19 05:29 Bg Moffett MD Jan 24, 2019 10:07
--- NOTE | 2019-01-24 10:30 | NUR ---
RD ASSESSMENT & RECOMMENDATIONS SEE CARE ACTIVITY FOR COMPLETE ASSESSMENT DAILY ESTIMATED NEEDS: Needs based on Critical care, wounds/ 60kg adj 22-28 kcals/kg 5869-7791 total kcals 1.25-2 g protein/kg 75-120 g total protein 25-30 mL/kg 4052-8240 total fluid mLs NUTRITION DIAGNOSIS: * Swallowing difficulty R/T respiratory status as evidenced by trach/vent dep, PEG dep. * Increased kcal/prot needs R/T wound healing as evidenced by BL buttocks and sacral wound photos, pending evaluation. CURRENT TF:Glucerna 1.5 @ 30ml/hr x 24 hrs ENTERAL NUTRITION RECOMMENDATIONS: Jevity 1.2 @ 55ml/hr x 24 hrs + Prosource 1pkt QD to provide 1320ml, 1584kcal, 73g +11g prot, 1060ml free water - Rec to continue PROPERTY INSURANCE CLAIMS EXAMINER TF of Jevity 1.2 - Rec Jevity 1.2 @ goal rate of 55ml/hr x 24 hrs - Add Prosource 1pkt daily to meet protein needs - Flush per MD/ HOB over 30 degrees ADDITIONAL RECOMMENDATIONS: 1) Re-calibrated bedscale wt for accurate CBW 2) Wound healing: Add Vit C 250mg QD + Cristian 1pkt BID : f/up w/ WC eval 3) Monitor lytes, replete as needed . .
--- NOTE | 2019-01-24 10:45 | History and Physical Report ---
DATE OF ADMISSION: 01/23/2019 CHIEF COMPLAINT: Sepsis, pneumonia. HISTORY OF PRESENT ILLNESS: The patient is an unfortunate 83-year-old female. She has a history of chronic respiratory failure and is trach dependent. She has had increasing cough, congestion, and shortness of breath. At the subacute, she was placed on the ventilator and because of continue respiratory distress, she was sent to the emergency room. On evaluation there, she had evidence of bilateral pneumonia. She has been started on broad-spectrum IV antibiotics. She has been placed on full ventilatory support. She is now admitted for further evaluation and care. The patient is poorly responsive and is unable provide any additional history. PAST MEDICAL HISTORY: Significant for history of chronic respiratory failure, pneumonia, anemia, history of hypertensive heart disease, hypothyroidism, history of Alzheimer's disease, persistent vegetative state, seizure disorder, stroke, and dysphagia. PAST SURGICAL HISTORY: Includes trach and a G-tube. CURRENT MEDICATIONS: Reconciled and reviewed. ALLERGIES: Include codeine. FAMILY HISTORY: Noncontributory. SOCIAL HISTORY: There is no known history of tobacco, ethanol, or drugs. REVIEW OF SYSTEMS: From the patient is unobtainable as she is nonverbal. PHYSICAL EXAMINATION: VITAL SIGNS: Temperature 98, pulse 117, respirations 14, blood pressure 135/72. GENERAL: The patient is a chronic ill-appearing female, in no apparent distress. She is poorly responsive. Currently on the ventilator. Trach site was midline and clean. HEART: Regular rate and rhythm. LUNGS: Significant for scattered rhonchi. ABDOMEN: Soft, nontender, nondistended. EXTREMITIES: Without clubbing, cyanosis, or edema. There is a small 2 cm clean-based ulcer on the left buttocks noted. LABORATORY DATA: Labs show white count of 11, hemoglobin 9, hematocrit 30, platelets of 237. Sodium 140, potassium 4.4, chloride 99, bicarb 36, BUN 28, creatinine 1.2. ASSESSMENT: This is an unfortunate 83-year-old female with a history of stroke, encephalopathy, dementia, and chronic respiratory failure, admitted with complaints of pneumonia. PROBLEM LIST: 1. Pneumonia. 2. Sepsis. 3. Encephalopathy. 4. History of stroke. 5. Alzheimer's disease. 6. Seizure disorder. 7. Dysphagia. PLAN: IV antibiotics. Continue G-tube feeds. IV hydration as needed. We will follow up pending cultures. Monitor chest x-ray. ID, Pulmonary, and Cardiology evaluation has been obtained. Irvin Beltrán M.D. DR: HOLLI JOB#: [id number] CC:
--- NOTE | 2019-01-24 11:18 | NUR ---
CASE MANAGEMENT: REVIEW 83Y/FEMALE BIBA FROM [facility] CC: RESP DISTRESS SI: SEPSIS . PNA T 98.8 HR 117 RR 13 BP 131/68 SAT 97% TRACH COLLAR FLOW RATE 50% WBC 11.6 H/H 9.6/30.5 IS: ALBUTEROL HHN X1 NS IVF BOLUS X1 LEVOFLOXACIN IV X1 ZOSYN IV X1 PATIENT ADMITTED TO STEP DOWN UNIT 01/23/2019 DCP: PATIENT IS FROM [facility]
[2019-01-24 12:00] VITALS: BP 145/72
--- NOTE | 2019-01-24 13:12 | NUR ---
RESPIRATORY NOTE: Received pt on AC 14-500ml-35%FiO2- peep 5. Pt is trach dependent with Trach cuffed, ShileyXLT 6, secured with trach ties. Pt is obtunded, unable to follow commands. No SOB or resp distress noted at this time. Alarms are set and audible, vent is plugged into the red outlet, ambu bag and spare trach kit are at bedside. Will continue to monitor pt.
--- NOTE | 2019-01-24 13:31 | NUR ---
NURSE NOTES: Pt seen by Dr. Madera, as consulted by Dr. Beltrán. Checked Pt's skin. Noted Lt ischium closed and healed wound, Sacral closed and healed, and Rt ischium stage 4 open wound. Wound was cleaned, therahoney and gauze applied, and covered with optifoam.
--- NOTE | 2019-01-24 13:52 | Consultation ---
History of Present Illness General Date patient seen: Jan 24, 2019 Reason for Hospitalization: Dyspnea/Respdistress Present Illness HPI 83-year-old female with multiple medical problem. She also has a history of tracheostomy feeding tube. She has a history of vent dependent respiratory failure. She presents with complaint of respiratory distress. Onset for the last few days but today had been placed back on the ventilator. She has increasing work of breathing. Lungs sound rhonchorous. No reported fever chills but no nausea or vomiting. Similar symptom in the past. History is limited on this patient because she is nonverbal. On admission identified to have multiple decubitus ulcers at different stages. Has received prior care for these and has been healing well. Surgery called to evaluate and assist with patient's care and management. Patient seen, patient evaluated, chart reviewed. Head to toe examination completed. Allergies: Coded Allergies: CODEINE (Verified Allergy, Unknown, HIVES, 09/15/09) Medication History Scheduled Albuterol Sulfate (Albuterol Sulfate), 2.5 MG IH EVERY 6 HOURS, (Reported) Amlodipine Besylate* (Amlodipine Besylate*), 10 MG GT DAILY, (Reported) Famotidine (Famotidine), 20 MG GT DAILY, (Reported) Ferrous Sulfate (Ferrous Sulfate), 330 MG GT BID, (Reported) Ferrous Sulfate* (Ferrous Sulfate*), 325 MG ORAL TWICE A DAY, (Reported) Folic Acid* (Folic Acid*), 1 MG GT DAILY, (Reported) Levetiracetam (Keppra), 750 MG ORAL EVERY 12 HOURS, (Reported) Levetiracetam* (Levetiracetam*), 750 MG GT BID, (Reported) Polyethylene Glycol 3350* (Miralax*), 17 GM GT DAILY, (Reported) Protein Supplement (Promod), 30 ML GT BID, (Reported) Scheduled PRN Acetaminophen* (Tylenol*), 640 MG GT DAILY PRN for For Pain, (Reported) Bisacodyl* (Dulcolax*), 10 MG RECTAL PRN PRN for Constipation, (Reported) Colistimethate Sodium (Colistin), 150 MG INH EVERY 12 HOURS PRN for Shortness of breath, (Reported) Docusate Sodium* (Colace*), 100 MG GT DAILY PRN for Constipation, (Reported) Ondansetron (Zofran), 4 MG GT Q6H PRN for Nausea & Vomiting, (Reported) Sennosides (Senna), 8.6 MG GT for Constipation, (Reported) Zolpidem Tartrate* (Zolpidem Tartrate*), 5 MG GT BEDTIME PRN for Insomnia, ( Reported) Miscellaneous Medications Mometasone Furoat/Ammonium Lac (Quinosone Combo Pack), 270 GM TP, (Reported) Patient History Limited by: medical condition History Provided By: Medical Record, PMD Healthcare decision maker STEPHANIE NAIK Resuscitation status Do Not Resuscitate Advanced Directive on File No Past Medical/Surgical History Past Medical/Surgical History: (1) Gastroparesis (2) Malfunction of jejunostomy tube (3) Anemia (4) Respiratory failure with hypoxia (5) Sepsis (6) HCAP (healthcare-associated pneumonia) (7) Leukocytosis (8) Respiratory failure (9) HTN (hypertension) (10) Feeding by G-tube (11) Intractable nausea and vomiting (12) Chronic vegetative state (13) Chronic respiratory failure (14) Feeding by G-tube (15) Limited mobility Review of Systems Review of Symptoms Cannot obtain given patient's medical condition patient nonverbal Physical Exam Physical Exam General appearance: alert, no distress, appears stated age Head: Normocephalic, without obvious abnormality, atraumatic Eyes: conjunctivae/corneas clear. PERRL, EOM's intact. Fundi benign Throat: Lips, mucosa, and tongue normal. Teeth and gums normal Neck: supple, symmetrical, trachea midline, no adenopathy, thyroid: not enlarged, symmetric, no tenderness/mass/nodules, no carotid bruit and no JVD trach on vent support Lungs: clear to auscultation bilaterally Heart: regular rate and rhythm, S1, S2 normal, no murmur, click, rub or gallop Abdomen: soft, non-tender. Bowel sounds normal. No masses, no organomegaly feeding tube Extremities: extremities normal, atraumatic, no cyanosis or edema Pulses: 2+ and symmetric Skin: See below Neurologic: Grossly normal Last 24 Hour Vital Signs Date Time Temp Pulse Resp B/P (MAP) Pulse Ox O2 Delivery O2 Flow Rate FiO2 01/24/19 13:12 75 15 35 01/24/19 12:00 Mechanical Ventilator 01/24/19 12:00 98.2 88 14 145/72 (96) 99 01/24/19 12:00 35 01/24/19 11:43 74 01/24/19 10:55 75 14 35 01/24/19 09:59 74 146/74 01/24/19 09:41 75 01/24/19 09:05 69 14 35 01/24/19 08:08 35 01/24/19 08:00 98.1 74 15 146/74 (98) 100 01/24/19 08:00 Mechanical Ventilator 01/24/19 07:15 86 14 35 01/24/19 05:27 84 18 35 01/24/19 04:09 Mechanical Ventilator 01/24/19 04:00 35 01/24/19 04:00 98.6 78 20 122/78 (93) 100 01/24/19 04:00 Mechanical Ventilator 01/24/19 04:00 78 01/24/19 03:02 88 16 35 01/24/19 03:00 Mechanical Ventilator 01/24/19 02:40 98.2 89 22 168/70 97 Mechanical Ventilator 50.0 35 01/24/19 01:30 98.0 89 25 171/72 97 Mechanical Ventilator 50.0 35 01/24/19 01:18 80 14 35 01/23/19 23:40 98.7 89 20 150/80 100 Mechanical Ventilator 50.0 35 01/23/19 23:35 80 20 100 Mechanical Ventilator 50.0 35 80 20 100 01/23/19 22:50 98 14 35 01/23/19 22:20 98.8 90 14 135/72 97 Mechanical Ventilator 50.0 21 01/23/19 22:20 117 14 97 Mechanical Ventilator 50.0 21 01/23/19 22:20 98 19 Mechanical Ventilator 50.0 21 01/23/19 22:20 117 14 35 01/23/19 22:12 98.4 98 13 131/68 (89) 97 Trach Collar Intake and Output 01/23/19 01/24/19 19:00 07:00 Intake Total 2365.416 ml Balance 2365.416 ml Intake Oral 0 ml IV Total 2245.416 ml Tube Feeding 120 ml # Bowel Movements 3 Laboratory Tests Test 01/23/19 22:18 01/24/19 01:30 White Blood Count 11.6 K/UL (4.8-10.8) H Red Blood Count 3.52 M/UL (4.20-5.40) L Hemoglobin 9.6 G/DL (12.0-16.0) L Hematocrit 30.5 % (37.0-47.0) L Mean Corpuscular Volume 87 FL (80-99) Mean Corpuscular Hemoglobin 27.2 PG (27.0-31.0) Mean Corpuscular Hemoglobin Concent 31.4 G/DL (32.0-36.0) L Red Cell Distribution Width 16.2 % (11.6-14.8) H Platelet Count 237 K/UL (150-450) Mean Platelet Volume 4.7 FL (6.5-10.1) L Neutrophils (%) (Auto) 77.6 % (45.0-75.0) H Lymphocytes (%) (Auto) 15.6 % (20.0-45.0) L Monocytes (%) (Auto) 4.5 % (1.0-10.0) Eosinophils (%) (Auto) 1.3 % (0.0-3.0) Basophils (%) (Auto) 1.0 % (0.0-2.0) Prothrombin Time 10.6 SEC (9.30-11.50) Prothromb Time International Ratio 1.0 (0.9-1.1) Activated Partial Thromboplast Time 25 SEC (23-33) Sodium Level 140 MMOL/L (136-145) Potassium Level 4.4 MMOL/L (3.5-5.1) Chloride Level 99 MMOL/L (98-107) Carbon Dioxide Level 36 MMOL/L (21-32) H Anion Gap 5 mmol/L (5-15) Blood Urea Nitrogen 28 mg/dL (7-18) H Creatinine 1.2 MG/DL (0.55-1.30) Estimat Glomerular Filtration Rate mL/min (>60) Glucose Level 119 MG/DL (74-106) H Lactic Acid Level 1.50 mmol/L (0.4-2.0) Calcium Level 10.1 MG/DL (8.5-10.1) Total Bilirubin 0.2 MG/DL (0.2-1.0) Aspartate Amino Transf (AST/SGOT) 25 U/L (15-37) Alanine Aminotransferase (ALT/SGPT) 38 U/L (12-78) Alkaline Phosphatase 177 U/L (46-116) H Total Creatine Kinase 68 U/L (26-308) Creatine Kinase MB 0.8 NG/ML (0.0-3.6) Creatine Kinase MB Relative Index 1.1 Troponin I 0.000 ng/mL (0.000-0.056) Total Protein 8.9 G/DL (6.4-8.2) H Albumin 2.9 G/DL (3.4-5.0) L Globulin 6.0 g/dL Albumin/Globulin Ratio 0.5 (1.0-2.7) L Urine Color Pale yellow Urine Appearance Clear Urine pH 9 (4.5-8.0) Urine Specific [place] 1.015 (1.005-1.035) Urine Protein 2+ (NEGATIVE) H Urine Glucose (UA) Negative (NEGATIVE) Urine Ketones Negative (NEGATIVE) Urine Blood 2+ (NEGATIVE) H Urine Nitrite Negative (NEGATIVE) Urine Bilirubin Negative (NEGATIVE) Urine Urobilinogen Normal MG/DL (0.0-1.0) Urine Leukocyte Esterase Negative (NEGATIVE) Urine RBC 2-4 /HPF (0 - 2) H Urine WBC 0-2 /HPF (0 - 2) Urine Squamous Epithelial Cells Occasional /LPF Urine Bacteria Occasional /HPF (NONE) Microbiology Date/Time Source Procedure Growth Status 01/24/19 02:26 Rectum Received Height (Feet): 5 Height (Inches): 5.00 Weight (Pounds): 150 Medications Current Medications Medications (Trade) Dose Ordered Sig/Maicol Route PRN Reason Start Time Stop Time Status Last Admin Dose Admin Amlodipine Besylate (Norvasc) 10 mg DAILY GT 01/24/19 09:00 02/23/19 08:59 01/24/19 09:59 Bisacodyl (Dulcolax) 10 mg PRN PRN ORAL Constipation 01/24/19 05:30 02/23/19 05:29 UNV Colistimethate Sodium (Colistin *inhalation use only*) 150 mg Q12H PRN INH Shortness of breath 01/24/19 05:30 01/31/19 05:29 Docusate Sodium (Colace) 100 mg DAILY PRN GT Constipation 01/24/19 05:45 02/23/19 05:29 Famotidine (Pepcid) 20 mg DAILY GT 01/24/19 09:00 02/23/19 08:59 01/24/19 09:59 Ferrous Sulfate (Feosol) 300 mg BID GT 01/24/19 09:00 02/23/19 08:59 01/24/19 10:00 Folic Acid (Folate) 1 mg DAILY GT 01/24/19 09:00 02/23/19 08:59 01/24/19 09:58 Heparin Sodium (Porcine) (Heparin 5000 units/ml) 5,000 units EVERY 12 HOURS SUBQ 01/24/19 09:00 02/23/19 08:59 01/24/19 10:05 Levetiracetam (Keppra) 750 mg BID GT 01/24/19 09:00 02/23/19 08:59 01/24/19 09:59 Ondansetron HCl (Zofran) 4 mg Q6H PRN GT Nausea & Vomiting 01/24/19 05:30 02/23/19 05:29 Piperacillin Sod/ Tazobactam Sod 3.375 gm/Sodium Chloride 110 ml @ 27.5 mls/hr EVERY 8 HOURS IVPB 01/24/19 06:00 01/29/19 05:59 01/24/19 06:14 Polyethylene Glycol (Miralax) 17 gm DAILY GT 01/24/19 09:00 02/23/19 08:59 01/24/19 10:00 Vancomycin HCl (Vanco rx to dose) 1 ea DAILY MISC 01/24/19 09:00 02/23/19 08:59 Vancomycin HCl 1 gm/Dextrose 275 ml @ 183.708 mls/hr Q24H IVPB 01/24/19 10:00 01/29/19 09:59 01/24/19 10:05 Zolpidem Tartrate (Ambien) 5 mg BEDTIME PRN GT Insomnia 01/24/19 05:30 01/31/19 05:29 Assessment/Plan Problem List: (1) Sacral decubitus ulcer Assessment & Plan: This is a 83-year-old female with multiple medical committees that is currently admitted for medical care and management and identified to have multiple wounds requiring care. On admission patient noted to have a resolved sacral decubitus ulcer. Has had prior care and is well-healed at this time. Will ensure it does not open up again. Patient has a right ischial decubitus ulcer that is resolved. Scar intact and well formed. Will monitor to ensure it does not open up again. Patient has a left ischial decubitus ulcer that can be identified to be stage IV with palpable bone that has been resolving as noted by the periwound tissue and scar but open area approximately 1 cm x 1.5 cm few millimeters deep to bone identified. Unsure if this is been to be completely healed prior and has since opened or if has been healing at this level. No foul odor no drainage was unsure local wound care until healed Bilateral heels soft without signs of injury Treatment plan: Please apply skin protectant and optifoam to sacral area. Change every 3 days Please apply skin protectant and optifoam to right ischial area. Change every 3 days Please apply Thera honey infused gauze to small opening in the left ischial wound bed followed by skin protectant in the periwound and up to foam. Change daily as needed saturation Offload pressure from heels with pillow Air soft mattress Turn every 2 hours Nutritional optimization We will monitor follow with recommendations ICD Codes: L89.159 - Pressure ulcer of sacral region, unspecified stage SNOMED: 952863358 (2) Sepsis Assessment & Plan: IV abx as per ID trend labs wounds unlikely etiology likely respiratory DAILY ESTIMATED NEEDS: Needs based on Critical care, wounds/ 60kg adj 22-28 kcals/kg 5013-0025 total kcals 1.25-2 g protein/kg 75-120 g total protein 25-30 mL/kg 2131-0198 total fluid mLs NUTRITION DIAGNOSIS: * Swallowing difficulty R/T respiratory status as evidenced by trach/vent dep, PEG dep. * Increased kcal/prot needs R/T wound healing as evidenced by BL buttocks and sacral wound photos, pending evaluation. CURRENT TF:Glucerna 1.5 @ 30ml/hr x 24 hrs ENTERAL NUTRITION RECOMMENDATIONS: Jevity 1.2 @ 55ml/hr x 24 hrs + Prosource 1pkt QD to provide 1320ml, 1584kcal, 73g +11g prot, 1060ml free water - Rec to continue [employer] REPRESENTATIVE TF of Jevity 1.2 - Rec Jevity 1.2 @ goal rate of 55ml/hr x 24 hrs - Add Prosource 1pkt daily to meet protein needs - Flush per MD/ HOB over 30 degrees ADDITIONAL RECOMMENDATIONS: 1) Re-calibrated bedscale wt for accurate CBW 2) Wound healing: Add Vit C 250mg QD + Cristian 1pkt BID : f/up w/ WC eval 3) Monitor lytes, replete as needed ICD Codes: A41.9 - Sepsis, unspecified organism SNOMED: 00904614, 260638269 Qualifiers: Qualified Codes: A41.9 - Sepsis, unspecified organism (3) Feeding by G-tube Assessment & Plan: cont tube feeds as tolerated ICD Codes: Z93.1 - Gastrostomy status SNOMED: 235225773, 057962130, 442087946 (4) Chronic vegetative state ICD Codes: R40.3 - Persistent vegetative state SNOMED: 38609736 (5) Leukocytosis ICD Codes: D72.829 - Elevated white blood cell count, unspecified SNOMED: 438021988, 693676934 Walter Madera Jan 24, 2019 13:52
[2019-01-24] MEDS: Albuterol/Ipratropium 3ml neb HHN SCH ×3 (14:27→22:56)
[2019-01-24 16:00] VITALS: BP 143/69
[2019-01-24] MEDS ORDERED: Tubing IV Secondary IV ONE (16:27)
--- NOTE | 2019-01-24 19:15 | NUR ---
HAND-OFF: Report given to JEANNINE Marion.
--- NOTE | 2019-01-24 19:20 | NUR ---
NURSE NOTES: received patient from JEANNINE Haynes. patient is observed resting in bed, nonverbal, unable to make needs known. no s/sx of pain noted at this time. vent to trach settings are as follows: Shiley: 6, AC: 14, TV: 450, FiO2: 30%, PEEP: 5. no s/sx of respiratory distress noted at this time. G-tube site is patent and intact, running Glucerna 1.5 at 30 cc/hr. HOB elevated, no residual noted. Purewick applied on patient, draining fernando urine. Right femoral central line noted, dressing dry and intact. bed in lowest position and locked, padded siderails up X3, call light within reach. will continue to monitor.
[2019-01-24 20:00] VITALS: BP 129/67
[2019-01-25] VITALS: BP 108/61
[2019-01-25] MEDS: Albuterol/Ipratropium 3ml neb HHN SCH ×6 (02:54→23:02)
[2019-01-25 04:00] VITALS: BP 126/58
[2019-01-25] MEDS: Piperacillin/Tazobactam 3.375 GM in NS 110 ML IVPB SCH ×3 (06:06→22:13)
[2019-01-25 06:52] LABS: BASOPHILS % (AUTO) 0.5 % (0.0-2.0); EOSINOPHILS % (AUTO) 3.3 % (0.0-3.0); HEMATOCRIT 30.7 % (37.0-47.0); HEMOGLOBIN 9.6 G/DL (12.0-16.0); LYMPHOCYTES % (AUTO) 29.1 % (20.0-45.0); MEAN CORPUSCULAR VOLUME 87 FL (80-99); MONOCYTES % (AUTO) 5.6 % (1.0-10.0); NEUTROPHILS % (AUTO) 61.4 % (45.0-75.0); PLATELET COUNT 250 K/UL (150-450); RED BLOOD COUNT 3.51 M/UL (4.20-5.40); RED CELL DISTRIBUTION WIDTH 17.6 % (11.6-14.8); WHITE BLOOD COUNT 7.5 K/UL (4.8-10.8)
--- NOTE | 2019-01-25 07:10 | NUR ---
NURSE NOTES: received patient report from brice mann. patient is on bed asleep. patient is noted to be obtunded. on vent at prescribed rate. gtube running. on contact precaution. wound care per order. will follow plan of care.
[2019-01-25 07:18] LABS: ALANINE AMINOTRANSFERASE 47 U/L (12-78); ALBUMIN 2.8 G/DL (3.4-5.0); ALBUMIN/GLOBULIN RATIO 0.5 (1.0-2.7); ALKALINE PHOSPHATASE 177 U/L (46-116); ANION GAP 11 mmol/L (5-15); ASPARTATE AMINO TRANSFERASE 40 U/L (15-37); BILIRUBIN,TOTAL 0.3 MG/DL (0.2-1.0); BLOOD UREA NITROGEN 21 mg/dL (7-18); CALCIUM 9.4 MG/DL (8.5-10.1); CARBON DIOXIDE 28 MMOL/L (21-32); CHLORIDE 104 MMOL/L (98-107); CREATININE 1.2 MG/DL (0.55-1.30); SODIUM 143 MMOL/L (136-145)
--- NOTE | 2019-01-25 07:48 | NUR ---
HAND-OFF: Report given to JEANNINE Ly. patient is in stable condition.
[2019-01-25 08:00] VITALS: BP 122/75
[2019-01-25] MEDS: Miralax 17gm pkt GT SCH (08:57)
[2019-01-25] MEDS: Ascorbic Acid 500mg tab ORAL SCH (08:57)
[2019-01-25] MEDS: Ferrous Sulfate 300 MG/5 ML UDC GT SCH ×2 (08:57→17:02)
[2019-01-25] MEDS: Heparin 5000 units/ml inj SUBQ SCH ×2 (08:59→20:25)
[2019-01-25] MEDS: levETIRAcetam 500mg/5ml Liquid GT SCH ×2 (09:06→17:02)
--- NOTE | 2019-01-25 09:23 | Diagnostic Imaging Report ---
EXAM: XR Chest, 1 View CLINICAL HISTORY: INFECT TECHNIQUE: Frontal view of the chest. COMPARISON: Chest x-ray dated 01 23 19 FINDINGS: Lungs: Interval improved appearance of the previously noted prominent interstitial markings, likely related to improved inspiratory effort on this exam. Lungs are otherwise clear. Pleural space: Unremarkable. The costophrenic angles are sharp. No visible pneumothorax. Heart: Unremarkable. No cardiomegaly. Mediastinum: Unremarkable. Bones joints: Unremarkable. Tubes, lines and devices: Stable positioning of a tracheostomy tube. IMPRESSION: Interval improved appearance of the previously noted prominent interstitial markings, likely related to improved inspiratory effort on this exam. Lungs are otherwise clear.
--- NOTE | 2019-01-25 09:54 | General Progress Note ---
Assessment/Plan Problem List: (1) Seizure ICD Codes: R56.9 - Unspecified convulsions SNOMED: 55912496 (2) Anemia ICD Codes: D64.9 - Anemia, unspecified SNOMED: 950885138 Qualifiers: Qualified Codes: D64.9 - Anemia, unspecified (3) Sepsis ICD Codes: A41.9 - Sepsis, unspecified organism SNOMED: 24463060, 270182305 Qualifiers: Qualified Codes: A41.9 - Sepsis, unspecified organism (4) Respiratory failure with hypoxia ICD Codes: J96.91 - Respiratory failure, unspecified with hypoxia SNOMED: 60618383143548984 Qualifiers: Qualified Codes: J96.21 - Acute and chronic respiratory failure with hypoxia (5) HCAP (healthcare-associated pneumonia) ICD Codes: J18.9 - Pneumonia, unspecified organism SNOMED: 194532142, 837471025 (6) Sacral decubitus ulcer ICD Codes: L89.159 - Pressure ulcer of sacral region, unspecified stage SNOMED: 274599253 (7) HTN (hypertension) ICD Codes: I10 - Essential (primary) hypertension SNOMED: 62243298 (8) Chronic vegetative state ICD Codes: R40.3 - Persistent vegetative state SNOMED: 16320354 (9) Chronic respiratory failure ICD Codes: J96.10 - Chronic respiratory failure, unspecified whether with hypoxia or hypercapnia SNOMED: 42840409 (10) Limited mobility ICD Codes: Z74.09 - Other reduced mobility SNOMED: 9043362 Status: stable Assessment/Plan: cont vent support resp rx suctioning as needed gt feeds monitor for aspiration iv abx follow up cultures id eval Subjective ROS Limited/Unobtainable: Yes HEENT: Reports: no symptoms Cardiovascular: Reports: no symptoms Respiratory: Reports: cough, sputum Gastrointestinal/Abdominal: Reports: difficulty swallowing Genitourinary: Reports: no symptoms Neurologic/Psychiatric: Reports: pre-existing deficit Endocrine: Reports: no symptoms Hematologic/Lymphatic: Reports: no symptoms Allergies: Coded Allergies: CODEINE (Verified Allergy, Unknown, HIVES, 09/15/09) All Systems: reviewed and negative except above Subjective no events. on the vent. poorly responsive. tolerating feeds. remains congested. on iv abx. no vomiting Objective Last 24 Hour Vital Signs Date Time Temp Pulse Resp B/P (MAP) Pulse Ox O2 Delivery O2 Flow Rate FiO2 10/27/19 09:13 84 20 30 01/25/19 08:57 89 122/75 01/25/19 08:00 Mechanical Ventilator 01/25/19 08:00 98.0 89 17 122/75 (91) 100 01/25/19 08:00 30 01/25/19 06:35 78 22 98 Mechanical Ventilator 50.0 30 78 22 30 01/25/19 05:03 77 15 30 01/25/19 04:00 82 01/25/19 04:00 30 01/25/19 04:00 Mechanical Ventilator 01/25/19 04:00 98.1 69 16 126/58 (80) 99 01/25/19 03:00 74 15 100 Mechanical Ventilator 30 01/25/19 02:50 72 14 98 Mechanical Ventilator 30 72 14 30 01/25/19 00:13 75 14 30 01/25/19 00:00 30 01/25/19 00:00 98.4 76 14 108/61 (77) 99 01/25/19 00:00 Mechanical Ventilator 01/25/19 00:00 74 01/24/19 23:06 75 14 100 Mechanical Ventilator 30 76 14 30 01/24/19 20:50 73 14 30 01/24/19 20:00 30 01/24/19 20:00 98.1 80 14 129/67 (87) 99 01/24/19 20:00 91 01/24/19 20:00 Mechanical Ventilator 01/24/19 18:43 79 14 100 Mechanical Ventilator 30 78 14 30 01/24/19 17:13 84 15 30 01/24/19 16:00 35 01/24/19 16:00 Mechanical Ventilator 01/24/19 16:00 98.8 81 15 143/69 (93) 100 01/24/19 15:23 79 01/24/19 14:38 74 14 100 Mechanical Ventilator 35 76 15 35 01/24/19 13:12 75 15 35 01/24/19 12:00 Mechanical Ventilator 01/24/19 12:00 98.2 88 14 145/72 (96) 99 01/24/19 12:00 35 01/24/19 11:43 74 01/24/19 10:55 75 14 35 01/24/19 09:59 74 146/74 Intake and Output 01/24/19 01/25/19 19:00 07:00 Intake Total 1145.000 ml 530.0 ml Output Total 250 ml 100 ml Balance 895.000 ml 430.0 ml Free Water 60 ml IV Total 495.000 ml 110.0 ml Tube Feeding 570 ml 360 ml Other 80 ml Output Urine Total 250 ml 100 ml # Bowel Movements 2 Laboratory Tests 01/24/19 14:28: Arterial Blood pH 7.449, Arterial Blood Partial Pressure CO2 42.1, Arterial Blood Partial Pressure O2 121.0H, Arterial Blood HCO3 28.5H, Arterial Blood Oxygen Saturation 98.7, Arterial Blood Base Excess 4.1H, Murphy Test Positive 01/25/19 05:00: White Blood Count 7.5, Red Blood Count 3.51L, Hemoglobin 9.6L, Hematocrit 30.7L , Mean Corpuscular Volume 87, Mean Corpuscular Hemoglobin 27.3, Mean Corpuscular Hemoglobin Concent 31.2L, Red Cell Distribution Width 17.6H, Platelet Count 250, Mean Platelet Volume 5.9L, Neutrophils (%) (Auto) 61.4, Lymphocytes (%) (Auto) 29.1, Monocytes (%) (Auto) 5.6, Eosinophils (%) (Auto) 3.3H, Basophils (%) (Auto) 0.5, Erythrocyte Sedimentation Rate 117H, Sodium Level 143, Potassium Level 4.0, Chloride Level 104, Carbon Dioxide Level 28, Anion Gap 11, Blood Urea Nitrogen 21H, Creatinine 1.2, Estimat Glomerular Filtration Rate , Glucose Level 88, Calcium Level 9.4, Total Bilirubin 0.3, Aspartate Amino Transf (AST/SGOT) 40H, Alanine Aminotransferase (ALT/SGPT) 47, Alkaline Phosphatase 177H, C-Reactive Protein, Quantitative 3.2H, Total Protein 8.3H, Albumin 2.8L, Globulin 5.5, Albumin/Globulin Ratio 0.5L 01/25/19 07:49: Arterial Blood pH 7.423, Arterial Blood Partial Pressure CO2 40.5, Arterial Blood Partial Pressure O2 129.7H, Arterial Blood HCO3 25.9, Arterial Blood Oxygen Saturation 98.0, Arterial Blood Base Excess 1.3, Murphy Test Positive Height (Feet): 5 Height (Inches): 5.00 Weight (Pounds): 150 General Appearance: WD/WN, confused Neck: supple Cardiovascular: normal rate, regular rhythm Respiratory/Chest: chest wall non-tender, rhonchi - bilaterally Abdomen: normal bowel sounds, non tender, soft, no organomegaly Edema: no edema noted Arm (L), no edema noted Arm (R), no edema noted Leg (L), no edema noted Leg (R), no edema noted Pedal (L), no edema noted Pedal (R), no edema noted Generalized Neurologic: disoriented, unresponsive, aphasia Irvin Beltrán MD Jan 25, 2019 09:54
[2019-01-25] MEDS: Vancomycin 1gm in D5W 275ml IVPB SCH (10:05)
[2019-01-25 12:00] VITALS: BP 115/57
--- NOTE | 2019-01-25 12:44 | Surgery Progress Note ---
Surgery Progress Note Subjective Additional Comments Leukocytosis resolved. ESR and CRP noted. Exam unchanged. Objective Last 24 Hour Vital Signs Date Time Temp Pulse Resp B/P (MAP) Pulse Ox O2 Delivery O2 Flow Rate FiO2 01/25/19 12:00 30 01/25/19 12:00 99.0 81 14 115/57 (76) 99 01/25/19 12:00 Mechanical Ventilator 01/25/19 11:12 78 14 98 Mechanical Ventilator 50.0 30 78 14 30 01/25/19 09:13 84 20 30 01/25/19 08:57 89 122/75 01/25/19 08:00 Mechanical Ventilator 01/25/19 08:00 98.0 89 17 122/75 (91) 100 01/25/19 08:00 30 01/25/19 08:00 83 01/25/19 06:35 78 22 98 Mechanical Ventilator 50.0 30 78 22 30 01/25/19 05:03 77 15 30 01/25/19 04:00 82 01/25/19 04:00 30 01/25/19 04:00 Mechanical Ventilator 01/25/19 04:00 98.1 69 16 126/58 (80) 99 01/25/19 03:00 74 15 100 Mechanical Ventilator 30 01/25/19 02:50 72 14 98 Mechanical Ventilator 30 72 14 30 01/25/19 00:13 75 14 30 01/25/19 00:00 30 01/25/19 00:00 98.4 76 14 108/61 (77) 99 01/25/19 00:00 Mechanical Ventilator 01/25/19 00:00 74 01/24/19 23:06 75 14 100 Mechanical Ventilator 30 76 14 30 01/24/19 20:50 73 14 30 01/24/19 20:00 30 01/24/19 20:00 98.1 80 14 129/67 (87) 99 01/24/19 20:00 91 01/24/19 20:00 Mechanical Ventilator 01/24/19 18:43 79 14 100 Mechanical Ventilator 30 78 14 30 01/24/19 17:13 84 15 30 01/24/19 16:00 35 01/24/19 16:00 Mechanical Ventilator 01/24/19 16:00 98.8 81 15 143/69 (93) 100 01/24/19 15:23 79 01/24/19 14:38 74 14 100 Mechanical Ventilator 35 76 15 35 01/24/19 13:12 75 15 35 I&O Intake and Output 01/24/19 01/25/19 19:00 07:00 Intake Total 1145.000 ml 530.0 ml Output Total 250 ml 100 ml Balance 895.000 ml 430.0 ml Free Water 60 ml IV Total 495.000 ml 110.0 ml Tube Feeding 570 ml 360 ml Other 80 ml Output Urine Total 250 ml 100 ml # Bowel Movements 2 Dressing: dry Wound: clean, dry Cardiovascular: RSR Respiratory: clear Abdomen: soft, non-tender, present bowel sounds Extremities: no cyanosis, other Laboratory Tests Test 01/24/19 14:28 01/25/19 05:00 01/25/19 07:49 Arterial Blood pH 7.449 (7.350-7.450) 7.423 (7.350-7.450) Arterial Blood Partial Pressure CO2 42.1 mmHg (35.0-45.0) 40.5 mmHg (35.0-45.0) Arterial Blood Partial Pressure O2 121.0 mmHg (75.0-100.0) H 129.7 mmHg (75.0-100.0) H Arterial Blood HCO3 28.5 mmol/L (22.0-26.0) H 25.9 mmol/L (22.0-26.0) Arterial Blood Oxygen Saturation 98.7 % (95-100) 98.0 % (95-100) Arterial Blood Base Excess 4.1 (-2-2) H 1.3 (-2-2) Murphy Test Positive Positive White Blood Count 7.5 K/UL (4.8-10.8) Red Blood Count 3.51 M/UL (4.20-5.40) L Hemoglobin 9.6 G/DL (12.0-16.0) L Hematocrit 30.7 % (37.0-47.0) L Mean Corpuscular Volume 87 FL (80-99) Mean Corpuscular Hemoglobin 27.3 PG (27.0-31.0) Mean Corpuscular Hemoglobin Concent 31.2 G/DL (32.0-36.0) L Red Cell Distribution Width 17.6 % (11.6-14.8) H Platelet Count 250 K/UL (150-450) Mean Platelet Volume 5.9 FL (6.5-10.1) L Neutrophils (%) (Auto) 61.4 % (45.0-75.0) Lymphocytes (%) (Auto) 29.1 % (20.0-45.0) Monocytes (%) (Auto) 5.6 % (1.0-10.0) Eosinophils (%) (Auto) 3.3 % (0.0-3.0) H Basophils (%) (Auto) 0.5 % (0.0-2.0) Erythrocyte Sedimentation Rate 117 MM/HR (0-30) H Sodium Level 143 MMOL/L (136-145) Potassium Level 4.0 MMOL/L (3.5-5.1) Chloride Level 104 MMOL/L (98-107) Carbon Dioxide Level 28 MMOL/L (21-32) Anion Gap 11 mmol/L (5-15) Blood Urea Nitrogen 21 mg/dL (7-18) H Creatinine 1.2 MG/DL (0.55-1.30) Estimat Glomerular Filtration Rate mL/min (>60) Glucose Level 88 MG/DL (74-106) Calcium Level 9.4 MG/DL (8.5-10.1) Total Bilirubin 0.3 MG/DL (0.2-1.0) Aspartate Amino Transf (AST/SGOT) 40 U/L (15-37) H Alanine Aminotransferase (ALT/SGPT) 47 U/L (12-78) Alkaline Phosphatase 177 U/L (46-116) H Troponin I 0.012 ng/mL (0.000-0.056) C-Reactive Protein, Quantitative 3.2 mg/dL (0.00-0.90) H Pro-B-Type Natriuretic Peptide 131 pg/mL (0-125) H Total Protein 8.3 G/DL (6.4-8.2) H Albumin 2.8 G/DL (3.4-5.0) L Globulin 5.5 g/dL Albumin/Globulin Ratio 0.5 (1.0-2.7) L Plan Problems: (1) Sacral decubitus ulcer Assessment & Plan: This is a 83-year-old female with multiple medical committees that is currently admitted for medical care and management and identified to have multiple wounds requiring care. On admission patient noted to have a resolved sacral decubitus ulcer. Has had prior care and is well-healed at this time. Will ensure it does not open up again. Patient has a right ischial decubitus ulcer that is resolved. Scar intact and well formed. Will monitor to ensure it does not open up again. Patient has a left ischial decubitus ulcer that can be identified to be stage IV with palpable bone that has been resolving as noted by the periwound tissue and scar but open area approximately 1 cm x 1.5 cm few millimeters deep to bone identified. Unsure if this is been to be completely healed prior and has since opened or if has been healing at this level. No foul odor no drainage was unsure local wound care until healed Bilateral heels soft without signs of injury Treatment plan: Please apply skin protectant and optifoam to sacral area. Change every 3 days Please apply skin protectant and optifoam to right ischial area. Change every 3 days Please apply Thera honey infused gauze to small opening in the left ischial wound bed followed by skin protectant in the periwound and up to foam. Change daily as needed saturation Offload pressure from heels with pillow Air soft mattress Turn every 2 hours Nutritional optimization We will monitor follow with recommendations (2) Sepsis Assessment & Plan: IV abx as per ID trend labs wounds unlikely etiology likely respiratory DAILY ESTIMATED NEEDS: Needs based on Critical care, wounds/ 60kg adj 22-28 kcals/kg 8074-5988 total kcals 1.25-2 g protein/kg 75-120 g total protein 25-30 mL/kg 6899-8914 total fluid mLs NUTRITION DIAGNOSIS: * Swallowing difficulty R/T respiratory status as evidenced by trach/vent dep, PEG dep. * Increased kcal/prot needs R/T wound healing as evidenced by BL buttocks and sacral wound photos, pending evaluation. CURRENT TF:Glucerna 1.5 @ 30ml/hr x 24 hrs ENTERAL NUTRITION RECOMMENDATIONS: Jevity 1.2 @ 55ml/hr x 24 hrs + Prosource 1pkt QD to provide 1320ml, 1584kcal, 73g +11g prot, 1060ml free water - Rec to continue COLLAR TAILOR TF of Jevity 1.2 - Rec Jevity 1.2 @ goal rate of 55ml/hr x 24 hrs - Add Prosource 1pkt daily to meet protein needs - Flush per MD/ HOB over 30 degrees ADDITIONAL RECOMMENDATIONS: 1) Re-calibrated bedscale wt for accurate CBW 2) Wound healing: Add Vit C 250mg QD + Cristian 1pkt BID : f/up w/ WC eval 3) Monitor lytes, replete as needed (3) Feeding by G-tube Assessment & Plan: cont tube feeds as tolerated (4) Chronic vegetative state (5) Leukocytosis Walter Madera Jan 25, 2019 12:44
--- NOTE | 2019-01-25 14:08 | Pulmonology Progress Note ---
Assessment/Plan Assessment/Plan Pulmonary Progress Note HPI This an 83-year-old female with history of tracheostomy, VDRF, feeding tube, admitted with Pneumonia, respiratory distress. She had increased work of breathing and had to be placed back on the ventilator. No reported fever chills but no nausea or vomiting. History is limited on this patient because she is nonverbal. S/p central line in ED Allergies: CODEINE Past Medical History: VDRF, Trach, G tube, Hypertension, Cardiac disease, Dementia, Previous CVA, TIA, Seizure disorder, previous cancer Less SOB Physical Exam Vital Signs Noted General Appearance: alert, moderate distress, obese, Chronically Ill Head: normocephalic, atraumatic Eyes: bilateral eye PERRL, bilateral eye EOMI ENT: hearing grossly normal, normal pharynx, no LN, Trach CDI Neck: NCAT, moist mm, tracheotomy Respiratory: chest non-tender, respiratory distress, decreased breath sounds Cardiovascular: regular rate, rhythm, no murmur, HS1, HS2, RRR Gastrointestinal: normal bowel sounds, non tender, no mass, no organomegaly, no bruit, non-distended, G-Tube Musculoskeletal: other - Contracted, decubital ulcers Neurologic: awake, generally weak, no seizures Skin: Decubitus/Ulcer Procedures Impression: Sepsis Pneumonia VDRF, Trach, G tube, Hypertension, Cardiac disease, Dementia, Previous CVA, TIA , Seizure disorder, previous cancer Respiratory failure with hypoxia Anemia Plan IV Antibiotics IVF SKIN SPECIALIST medications Continue ACV HHN O2 adjust as neccessary Monitor labs PPX Patient is a DNR. No CPR. EKG: Rate: normal Rhythm: NSR ST Segments: no acute changes Chest X-Ray: no effusion, no pneumothorax, other - Bibasilar infiltrates. Subjective ROS Limited/Unobtainable: No Allergies: Coded Allergies: CODEINE (Verified Allergy, Unknown, HIVES, 09/15/09) Objective Last 24 Hour Vital Signs Date Time Temp Pulse Resp B/P (MAP) Pulse Ox O2 Delivery O2 Flow Rate FiO2 01/25/19 12:49 80 14 30 01/25/19 12:00 30 01/25/19 12:00 99.0 81 14 115/57 (76) 99 01/25/19 12:00 Mechanical Ventilator 01/25/19 11:43 76 01/25/19 11:12 78 14 98 Mechanical Ventilator 50.0 30 78 14 30 01/25/19 09:13 84 20 30 01/25/19 08:57 89 122/75 01/25/19 08:00 Mechanical Ventilator 01/25/19 08:00 98.0 89 17 122/75 (91) 100 01/25/19 08:00 30 01/25/19 08:00 83 01/25/19 06:35 78 22 98 Mechanical Ventilator 50.0 30 78 22 30 01/25/19 05:03 77 15 30 01/25/19 04:00 82 01/25/19 04:00 30 01/25/19 04:00 Mechanical Ventilator 01/25/19 04:00 98.1 69 16 126/58 (80) 99 01/25/19 03:00 74 15 100 Mechanical Ventilator 30 01/25/19 02:50 72 14 98 Mechanical Ventilator 30 72 14 30 01/25/19 00:13 75 14 30 01/25/19 00:00 30 01/25/19 00:00 98.4 76 14 108/61 (77) 99 01/25/19 00:00 Mechanical Ventilator 01/25/19 00:00 74 01/24/19 23:06 75 14 100 Mechanical Ventilator 30 76 14 30 01/24/19 20:50 73 14 30 01/24/19 20:00 30 01/24/19 20:00 98.1 80 14 129/67 (87) 99 01/24/19 20:00 91 01/24/19 20:00 Mechanical Ventilator 01/24/19 18:43 79 14 100 Mechanical Ventilator 30 78 14 30 01/24/19 17:13 84 15 30 01/24/19 16:00 35 01/24/19 16:00 Mechanical Ventilator 01/24/19 16:00 98.8 81 15 143/69 (93) 100 01/24/19 15:23 79 01/24/19 14:38 74 14 100 Mechanical Ventilator 35 76 15 35 Intake and Output 01/24/19 01/25/19 19:00 07:00 Intake Total 1145.000 ml 530.0 ml Output Total 250 ml 100 ml Balance 895.000 ml 430.0 ml Free Water 60 ml IV Total 495.000 ml 110.0 ml Tube Feeding 570 ml 360 ml Other 80 ml Output Urine Total 250 ml 100 ml # Bowel Movements 2 Microbiology Date/Time Source Procedure Growth Status 01/23/19 22:30 Blood Blood Culture - Preliminary NO GROWTH AFTER 24 HOURS Resulted 01/23/19 22:18 Blood Blood Culture - Preliminary NO GROWTH AFTER 24 HOURS Resulted 01/24/19 02:26 Rectum Received Laboratory Tests 01/24/19 14:28: Arterial Blood pH 7.449, Arterial Blood Partial Pressure CO2 42.1, Arterial Blood Partial Pressure O2 121.0H, Arterial Blood HCO3 28.5H, Arterial Blood Oxygen Saturation 98.7, Arterial Blood Base Excess 4.1H, Murphy Test Positive 01/25/19 05:00: White Blood Count 7.5, Red Blood Count 3.51L, Hemoglobin 9.6L, Hematocrit 30.7L , Mean Corpuscular Volume 87, Mean Corpuscular Hemoglobin 27.3, Mean Corpuscular Hemoglobin Concent 31.2L, Red Cell Distribution Width 17.6H, Platelet Count 250, Mean Platelet Volume 5.9L, Neutrophils (%) (Auto) 61.4, Lymphocytes (%) (Auto) 29.1, Monocytes (%) (Auto) 5.6, Eosinophils (%) (Auto) 3.3H, Basophils (%) (Auto) 0.5, Erythrocyte Sedimentation Rate 117H, Sodium Level 143, Potassium Level 4.0, Chloride Level 104, Carbon Dioxide Level 28, Anion Gap 11, Blood Urea Nitrogen 21H, Creatinine 1.2, Estimat Glomerular Filtration Rate , Glucose Level 88, Calcium Level 9.4, Total Bilirubin 0.3, Aspartate Amino Transf (AST/SGOT) 40H, Alanine Aminotransferase (ALT/SGPT) 47, Alkaline Phosphatase 177H, Troponin I 0.012, C-Reactive Protein, Quantitative 3.2H, Pro-B-Type Natriuretic Peptide 131H, Total Protein 8.3H, Albumin 2.8L, Globulin 5.5, Albumin/Globulin Ratio 0.5L 01/25/19 07:49: Arterial Blood pH 7.423, Arterial Blood Partial Pressure CO2 40.5, Arterial Blood Partial Pressure O2 129.7H, Arterial Blood HCO3 25.9, Arterial Blood Oxygen Saturation 98.0, Arterial Blood Base Excess 1.3, Murphy Test Positive Current Medications Medications (Trade) Dose Ordered Sig/Maicol Route PRN Reason Start Time Stop Time Status Last Admin Dose Admin Albuterol/ Ipratropium (Albuterol/ Ipratropium) 3 ml Q4HRT HHN 01/24/19 15:00 01/29/19 14:59 01/25/19 11:12 Amlodipine Besylate (Norvasc) 10 mg DAILY GT 01/24/19 09:00 02/23/19 08:59 01/25/19 08:57 Ascorbic Acid (Vitamin C) 250 mg DAILY ORAL 01/25/19 09:00 02/24/19 08:59 01/25/19 08:57 Bisacodyl (Dulcolax) 10 mg PRN PRN RECTAL Constipation 01/24/19 05:30 02/23/19 05:29 Chlorhexidine Gluconate (Cesilia-Hex 2%) 1 applic DAILY@2000 TOPIC 01/25/19 20:00 02/24/19 19:59 Colistimethate Sodium (Colistin *inhalation use only*) 150 mg Q12H PRN INH Shortness of breath 01/24/19 05:30 01/31/19 05:29 Docusate Sodium (Colace) 100 mg DAILY PRN GT Constipation 01/24/19 05:45 02/23/19 05:29 Famotidine (Pepcid) 20 mg DAILY GT 01/24/19 09:00 02/23/19 08:59 01/25/19 08:57 Ferrous Sulfate (Feosol) 300 mg BID GT 01/24/19 09:00 02/23/19 08:59 01/25/19 08:57 Folic Acid (Folate) 1 mg DAILY GT 01/24/19 09:00 02/23/19 08:59 01/25/19 08:57 Heparin Sodium (Porcine) (Heparin 5000 units/ml) 5,000 units EVERY 12 HOURS SUBQ 01/24/19 09:00 02/23/19 08:59 01/25/19 08:59 Levetiracetam (Keppra) 750 mg BID GT 01/24/19 09:00 02/23/19 08:59 01/25/19 09:06 Ondansetron HCl (Zofran) 4 mg Q6H PRN GT Nausea & Vomiting 01/24/19 05:30 02/23/19 05:29 Piperacillin Sod/ Tazobactam Sod 3.375 gm/Sodium Chloride 110 ml @ 27.5 mls/hr EVERY 8 HOURS IVPB 01/24/19 06:00 01/29/19 05:59 01/25/19 13:20 Polyethylene Glycol (Miralax) 17 gm DAILY GT 01/24/19 09:00 02/23/19 08:59 01/25/19 08:57 Vancomycin HCl (Vanco rx to dose) 1 ea DAILY MISC 01/24/19 09:00 02/23/19 08:59 01/25/19 09:00 Vancomycin HCl 1 gm/Dextrose 275 ml @ 183.708 mls/hr Q24H IVPB 01/24/19 10:00 01/29/19 09:59 01/25/19 10:05 Zolpidem Tartrate (Ambien) 5 mg BEDTIME PRN GT Insomnia 01/24/19 05:30 01/31/19 05:29 Bg Moffett MD Jan 25, 2019 14:08
--- NOTE | 2019-01-25 15:00 | NUR ---
RESPIRATORY NOTE: 1500 Duoneb nebulized tx not given due to higher level of triage in ER. Aliyah Kirkpatrick made aware.
[2019-01-25 16:00] VITALS: BP 119/78
[2019-01-25] MEDS ORDERED: Sterile Water Irrig 1000ml IRRIG ONE (16:18)
--- NOTE | 2019-01-25 19:03 | NUR ---
HAND-OFF: Report given to brice mann.
--- NOTE | 2019-01-25 19:04 | NUR ---
RESPIRATORY NOTE: Received pt on AC 14, 450VT, 30%, PEEP +5. Pt is trach-dependent w/ a cuffed, Shiley 6 XLT tube. Pt flat effect, responds to stimuli. b/S flory. rhonchi, sxn small to moderate amounts of thick/thin/frothy, pale-yellow secretions. Vent plugged into red outlet, ambubag at bedside. Pt in no apparent distress at this time. Will continue plan of care.
--- NOTE | 2019-01-25 19:33 | NUR ---
NURSE NOTES: received patient from JEANNINE Ly. patient is observed in bed, obtunded, unable to make needs known. no s/sx of pain noted at this time. vent to trach settings are as follows: Shiley: 6, AC: 14, TV: 450, FiO2: 30%, PEEP: 5. tolerating well, saturating at 99%, no s/sx of respiratory distress noted at this time. ekg monitor tech shows NSR with current HR of 79, no acute cardiac distress noted at this time. G-tube site is patent and intact, running Glucerna 1.5 at 30 cc/hr. HOB elevated, no residual noted. Right femoral central line noted, dressing dry and intact; running fluids TKO. bed in lowest position and locked, padded siderails up X3, call light within reach. will continue to monitor.
[2019-01-25 20:00] VITALS: BP 134/69
[2019-01-25] MEDS: Dyna-Hex 2% Top Sol 2oz TOPIC SCH (20:22)
[2019-01-26] VITALS: BP 124/66
--- NOTE | 2019-01-26 01:45 | Consultation ---
DATE OF CONSULTATION: 01/25/2019 CARDIOLOGY CONSULTATION CONSULTING PHYSICIAN: Bg Hagen M.D. REFERRING PHYSICIAN: Irvin Beltrán M.D. REASON FOR CONSULTATION: Evaluate for congestive heart failure in the setting of acute on chronic respiratory failure. HISTORY OF PRESENT ILLNESS: This is an 83-year-old female with ventilator dependent respiratory failure and tracheostomy. She was admitted to the hospital early yesterday morning with respiratory distress due to healthcare-acquired pneumonia requiring her to be placed back on ventilator support. Central venous access was obtained in the emergency room. I have been asked to assist with cardiovascular care addressing the possible contribution of congestive heart failure. The patient is unable to give any historical data. Chart is reviewed. PAST MEDICAL HISTORY: Includes cerebrovascular disease with history of cerebrovascular accident, seizure disorder, respiratory failure with tracheostomy, dysphagia with G-tube, hypertensive heart disease, hypothyroidism, and anemia of chronic disease. ALLERGIES: Include codeine. MEDICATIONS: Reviewed and reconciled. FAMILY HISTORY: Not known. SOCIAL HISTORY: Not known. REVIEW OF SYSTEMS: Cannot obtain further review of systems, however, pertinent data from prior hospitalization is reviewed and outlined above. PHYSICAL EXAMINATION: GENERAL: Comatose and unresponsive on full ventilator support via tracheostomy. VITAL SIGNS: Blood pressure 115/57, pulse 81, respirations 14, and temperature 99. HEENT: Temporal wasting. NECK: Thick trach secretions. LUNGS: Bilateral rhonchi. HEART: Regular rhythm and rate. Normal S1, S2 with no appreciable murmur. ABDOMEN: Soft. G-tube intact. EXTREMITIES: With trace dependent edema. SKIN: As outlined by nursing staff. NEUROLOGIC: She is unresponsive. LABORATORY AND DIAGNOSTIC DATA: Chest x-ray on 01/24/2019 revealed interstitial infiltrates and possible pulmonary venous congestion. Natriuretic peptide 131. Troponin negative. Sodium 143, potassium 4, bicarb 28, BUN 21, and creatinine 1.2. Albumin 2.8. ABG, 7.42, 40, 129. White count 7.5, hemoglobin 9.6. EKG reveals marked sinus rhythm at 93 beats per minute, nonspecific ST change. IMPRESSION: 1. Respiratory failure, ventilator dependent at this time. 2. Healthcare-acquired pneumonia. 3. Probable sepsis. 4. Hypertensive heart disease. 5. Chronic diastolic congestive heart failure. 6. Hypoxia due to pneumonia. 7. Cerebrovascular disease with advanced dementia. 8. Anemia of chronic disease. 9. Moderate protein-calorie malnutrition. PLAN: 1. Ventilator support. 2. Antimicrobials. 3. Respiratory hygiene. 4. Bronchodilators. 5. Await culture results. 6. Maintenance hydration. 7. No role for diuretics at this time. 8. Consider echocardiogram if not recently done. 9. Trend natriuretic peptide assay to assist with cardiovascular management. Bg Hagen M.D. DR: PHUONG JOB#: [id number] CC:
[2019-01-26] MEDS: Albuterol/Ipratropium 3ml neb HHN SCH ×5 (02:58→23:42)
[2019-01-26 04:00] VITALS: BP 139/67
[2019-01-26] MEDS: Piperacillin/Tazobactam 3.375 GM in NS 110 ML IVPB SCH ×3 (05:38→22:07)
[2019-01-26 06:08] LABS: ALANINE AMINOTRANSFERASE 53 U/L (12-78); ALBUMIN 2.4 G/DL (3.4-5.0); ALBUMIN/GLOBULIN RATIO 0.5 (1.0-2.7); ALKALINE PHOSPHATASE 162 U/L (46-116); ANION GAP 7 mmol/L (5-15); ASPARTATE AMINO TRANSFERASE 35 U/L (15-37); BILIRUBIN,TOTAL 0.3 MG/DL (0.2-1.0); BLOOD UREA NITROGEN 19 mg/dL (7-18); CALCIUM 8.7 MG/DL (8.5-10.1); CARBON DIOXIDE 28 MMOL/L (21-32); CHLORIDE 107 MMOL/L (98-107); CREATININE 1.1 MG/DL (0.55-1.30); POTASSIUM 3.7 MMOL/L (3.5-5.1); SODIUM 142 MMOL/L (136-145)
--- NOTE | 2019-01-26 06:27 | General Progress Note ---
Assessment/Plan Problem List: (1) Seizure ICD Codes: R56.9 - Unspecified convulsions SNOMED: 35858205 (2) Anemia ICD Codes: D64.9 - Anemia, unspecified SNOMED: 217555187 Qualifiers: Qualified Codes: D64.9 - Anemia, unspecified (3) Sepsis ICD Codes: A41.9 - Sepsis, unspecified organism SNOMED: 56953313, 498348473 Qualifiers: Qualified Codes: A41.9 - Sepsis, unspecified organism (4) Respiratory failure with hypoxia ICD Codes: J96.91 - Respiratory failure, unspecified with hypoxia SNOMED: 87836603419503489 Qualifiers: Qualified Codes: J96.21 - Acute and chronic respiratory failure with hypoxia (5) HCAP (healthcare-associated pneumonia) ICD Codes: J18.9 - Pneumonia, unspecified organism SNOMED: 335870165, 212975510 (6) Sacral decubitus ulcer ICD Codes: L89.159 - Pressure ulcer of sacral region, unspecified stage SNOMED: 943794860 (7) HTN (hypertension) ICD Codes: I10 - Essential (primary) hypertension SNOMED: 05094267 (8) Chronic vegetative state ICD Codes: R40.3 - Persistent vegetative state SNOMED: 56760582 (9) Chronic respiratory failure ICD Codes: J96.10 - Chronic respiratory failure, unspecified whether with hypoxia or hypercapnia SNOMED: 68607261 (10) Limited mobility ICD Codes: Z74.09 - Other reduced mobility SNOMED: 4847163 Status: stable Assessment/Plan: cont vent support resp rx suctioning as needed gt feeds monitor for aspiration iv abx follow up cultures monitor cxr id eval pending Subjective ROS Limited/Unobtainable: No Constitutional: Reports: malaise, weakness HEENT: Reports: no symptoms Cardiovascular: Reports: no symptoms Respiratory: Reports: cough, sputum Gastrointestinal/Abdominal: Reports: difficulty swallowing Genitourinary: Reports: no symptoms Neurologic/Psychiatric: Reports: pre-existing deficit Endocrine: Reports: no symptoms Hematologic/Lymphatic: Reports: no symptoms Allergies: Coded Allergies: CODEINE (Verified Allergy, Unknown, HIVES, 09/15/09) All Systems: reviewed and negative except above Subjective no events. on the vent. poorly responsive. tolerating feeds. remains congested. on iv abx. no vomiting Objective Last 24 Hour Vital Signs Date Time Temp Pulse Resp B/P (MAP) Pulse Ox O2 Delivery O2 Flow Rate FiO2 01/26/19 05:13 86 17 30 01/26/19 04:00 78 01/26/19 04:00 30 01/26/19 04:00 Mechanical Ventilator 01/26/19 03:08 82 14 100 Mechanical Ventilator 30 01/26/19 02:58 85 16 100 Mechanical Ventilator 30 85 16 30 01/26/19 01:08 75 14 30 01/26/19 00:00 Mechanical Ventilator 01/26/19 00:00 30 01/26/19 00:00 102 01/26/19 00:00 98.2 82 14 124/66 (85) 99 01/25/19 23:13 65 14 100 Mechanical Ventilator 30 01/25/19 23:02 70 14 100 Mechanical Ventilator 30 70 14 30 01/25/19 20:55 74 15 30 01/25/19 20:00 Mechanical Ventilator 01/25/19 20:00 98.4 77 14 134/69 (90) 100 01/25/19 20:00 84 01/25/19 20:00 30 01/25/19 19:08 81 14 100 Mechanical Ventilator 30 01/25/19 18:58 79 14 100 Mechanical Ventilator 30 79 14 30 01/25/19 17:09 78 14 30 01/25/19 16:00 99.0 79 14 119/78 (92) 100 01/25/19 16:00 30 01/25/19 16:00 Mechanical Ventilator 01/25/19 15:29 74 14 30 01/25/19 15:26 65 01/25/19 12:49 80 14 30 01/25/19 12:00 30 01/25/19 12:00 99.0 81 14 115/57 (76) 99 01/25/19 12:00 Mechanical Ventilator 01/25/19 11:43 76 01/25/19 11:12 78 14 98 Mechanical Ventilator 50.0 30 78 14 30 01/25/19 09:13 84 20 30 01/25/19 08:57 89 122/75 01/25/19 08:00 Mechanical Ventilator 01/25/19 08:00 98.0 89 17 122/75 (91) 100 01/25/19 08:00 30 01/25/19 08:00 83 01/25/19 06:35 78 22 98 Mechanical Ventilator 50.0 30 78 22 30 Intake and Output 01/25/19 01/26/19 19:00 07:00 Intake Total 427.5 ml 364.041 ml Output Total 250 ml Balance 177.5 ml 364.041 ml Free Water 100 ml 50 ml IV Total 27.5 ml 104.041 ml Tube Feeding 300 ml 210 ml Output Urine Total 250 ml # Voids 1 # Bowel Movements 4 1 Laboratory Tests 01/25/19 07:49: Arterial Blood pH 7.423, Arterial Blood Partial Pressure CO2 40.5, Arterial Blood Partial Pressure O2 129.7H, Arterial Blood HCO3 25.9, Arterial Blood Oxygen Saturation 98.0, Arterial Blood Base Excess 1.3, Murphy Test Positive 01/26/19 04:00: Sodium Level 142, Potassium Level 3.7, Chloride Level 107, Carbon Dioxide Level 28, Anion Gap 7, Blood Urea Nitrogen 19H, Creatinine 1.1, Estimat Glomerular Filtration Rate , Glucose Level 97, Calcium Level 8.7, Total Bilirubin 0.3, Aspartate Amino Transf (AST/SGOT) 35, Alanine Aminotransferase (ALT/SGPT) 53, Alkaline Phosphatase 162H, Total Protein 7.3, Albumin 2.4L, Globulin 4.9, Albumin/Globulin Ratio 0.5L Height (Feet): 5 Height (Inches): 5.00 Weight (Pounds): 150 Objective General Appearance: WD/WN, confused Neck: supple Cardiovascular: normal rate, regular rhythm Respiratory/Chest: chest wall non-tender, rhonchi - bilaterally Abdomen: normal bowel sounds, non tender, soft, no organomegaly Edema: no edema noted Arm (L), no edema noted Arm (R), no edema noted Leg (L), no edema noted Leg (R), no edema noted Pedal (L), no edema noted Pedal (R), no edema noted Generalized Neurologic: disoriented, unresponsive, aphasia Irvin Beltrán MD Jan 26, 2019 06:27
--- NOTE | 2019-01-26 07:05 | NUR ---
NURSE NOTES: received patient report from brice mann. patient is on bed asleep. on vent at prescribed settings. no arrythmias reported during the night. sr on the monitor. afebrile. will follow plan of care.
--- NOTE | 2019-01-26 07:09 | NUR ---
HAND-OFF: Report given to JEANNINE Ly. patient is in stable condition.
--- NOTE | 2019-01-26 07:54 | Pulmonology Progress Note ---
Assessment/Plan Assessment/Plan Impression: Sepsis syncrome Pneumonia VDRF, Trach, G tube, Hypertension, Cardiac disease, Dementia, Previous CVA, Seizure disorder, Respiratory failure with hypoxia Anemia Sacral ulcer Plan IV Antibiotics IVF maintain SNF meds vent support HHN O2 RX Monitor labs PUD and DVT prophylaxis Patient is a DNR. No CPR. impression, plan, and exam edited and reviewed in detail care discussed with RN Subjective ROS Limited/Unobtainable: Yes Allergies: Coded Allergies: CODEINE (Verified Allergy, Unknown, HIVES, 09/15/09) Subjective currently on the ventilator some congestion supportive care noted Objective Last 24 Hour Vital Signs Date Time Temp Pulse Resp B/P (MAP) Pulse Ox O2 Delivery O2 Flow Rate FiO2 01/26/19 07:39 30 01/26/19 07:38 Mechanical Ventilator 01/26/19 07:00 74 14 98 Mechanical Ventilator 30 78 14 30 01/26/19 05:13 86 17 30 01/26/19 04:00 98.2 81 14 139/67 (91) 99 01/26/19 04:00 78 01/26/19 04:00 30 01/26/19 04:00 Mechanical Ventilator 01/26/19 03:08 82 14 100 Mechanical Ventilator 30 01/26/19 02:58 85 16 100 Mechanical Ventilator 30 85 16 30 01/26/19 01:08 75 14 30 01/26/19 00:00 Mechanical Ventilator 01/26/19 00:00 30 01/26/19 00:00 102 01/26/19 00:00 98.2 82 14 124/66 (85) 99 01/25/19 23:13 65 14 100 Mechanical Ventilator 30 01/25/19 23:02 70 14 100 Mechanical Ventilator 30 70 14 30 01/25/19 20:55 74 15 30 01/25/19 20:00 Mechanical Ventilator 01/25/19 20:00 98.4 77 14 134/69 (90) 100 01/25/19 20:00 84 01/25/19 20:00 30 01/25/19 19:08 81 14 100 Mechanical Ventilator 30 01/25/19 18:58 79 14 100 Mechanical Ventilator 30 79 14 30 01/25/19 17:09 78 14 30 01/25/19 16:00 99.0 79 14 119/78 (92) 100 01/25/19 16:00 30 01/25/19 16:00 Mechanical Ventilator 01/25/19 15:29 74 14 30 01/25/19 15:26 65 01/25/19 12:49 80 14 30 01/25/19 12:00 30 01/25/19 12:00 99.0 81 14 115/57 (76) 99 01/25/19 12:00 Mechanical Ventilator 01/25/19 11:43 76 01/25/19 11:12 78 14 98 Mechanical Ventilator 50.0 30 78 14 30 01/25/19 09:13 84 20 30 01/25/19 08:57 89 122/75 01/25/19 08:00 Mechanical Ventilator 01/25/19 08:00 98.0 89 17 122/75 (91) 100 01/25/19 08:00 30 01/25/19 08:00 83 Intake and Output 01/25/19 01/26/19 19:00 07:00 Intake Total 427.5 ml 607.583 ml Output Total 250 ml 25 ml Balance 177.5 ml 582.583 ml Free Water 100 ml 100 ml IV Total 27.5 ml 147.583 ml Tube Feeding 300 ml 360 ml Output Urine Total 250 ml 25 ml # Voids 1 # Bowel Movements 4 2 Objective WDWN NAD contracted on vent reduced breath sounds bilaterally without rhonchi or wheeze [id number] without MRG NABS nontender no HSM no CC minimal nonfocal nonverbal trach and gt Microbiology Date/Time Source Procedure Growth Status 01/23/19 22:30 Blood Blood Culture - Preliminary NO GROWTH AFTER 48 HOURS Resulted 01/23/19 22:18 Blood Blood Culture - Preliminary NO GROWTH AFTER 48 HOURS Resulted 01/24/19 02:26 Rectum VRE Culture - Final Enterococcus Faecalis - Vre Complete Laboratory Tests 01/26/19 04:00: Sodium Level 142, Potassium Level 3.7, Chloride Level 107, Carbon Dioxide Level 28, Anion Gap 7, Blood Urea Nitrogen 19H, Creatinine 1.1, Estimat Glomerular Filtration Rate , Glucose Level 97, Calcium Level 8.7, Total Bilirubin 0.3, Aspartate Amino Transf (AST/SGOT) 35, Alanine Aminotransferase (ALT/SGPT) 53, Alkaline Phosphatase 162H, Total Protein 7.3, Albumin 2.4L, Globulin 4.9, Albumin/Globulin Ratio 0.5L Current Medications Medications (Trade) Dose Ordered Sig/Maicol Route PRN Reason Start Time Stop Time Status Last Admin Dose Admin Albuterol/ Ipratropium (Albuterol/ Ipratropium) 3 ml Q4HRT HHN 01/24/19 15:00 01/29/19 14:59 01/26/19 07:10 Amlodipine Besylate (Norvasc) 10 mg DAILY GT 01/24/19 09:00 02/23/19 08:59 01/25/19 08:57 Ascorbic Acid (Vitamin C) 250 mg DAILY ORAL 01/25/19 09:00 02/24/19 08:59 01/25/19 08:57 Bisacodyl (Dulcolax) 10 mg PRN PRN RECTAL Constipation 01/24/19 05:30 02/23/19 05:29 Chlorhexidine Gluconate (Cesilia-Hex 2%) 1 applic DAILY@2000 TOPIC 01/25/19 20:00 02/24/19 19:59 01/25/19 20:22 Colistimethate Sodium (Colistin *inhalation use only*) 150 mg Q12H PRN INH Shortness of breath 01/24/19 05:30 01/31/19 05:29 Docusate Sodium (Colace) 100 mg DAILY PRN GT Constipation 01/24/19 05:45 02/23/19 05:29 Famotidine (Pepcid) 20 mg DAILY GT 01/24/19 09:00 02/23/19 08:59 01/25/19 08:57 Ferrous Sulfate (Feosol) 300 mg BID GT 01/24/19 09:00 02/23/19 08:59 01/25/19 17:02 Folic Acid (Folate) 1 mg DAILY GT 01/24/19 09:00 02/23/19 08:59 01/25/19 08:57 Heparin Sodium (Porcine) (Heparin 5000 units/ml) 5,000 units EVERY 12 HOURS SUBQ 01/24/19 09:00 02/23/19 08:59 01/25/19 20:25 Levetiracetam (Keppra) 750 mg BID GT 01/24/19 09:00 02/23/19 08:59 01/25/19 17:02 Ondansetron HCl (Zofran) 4 mg Q6H PRN GT Nausea & Vomiting 01/24/19 05:30 02/23/19 05:29 Piperacillin Sod/ Tazobactam Sod 3.375 gm/Sodium Chloride 110 ml @ 27.5 mls/hr EVERY 8 HOURS IVPB 01/24/19 06:00 01/29/19 05:59 01/26/19 05:38 Polyethylene Glycol (Miralax) 17 gm DAILY GT 01/24/19 09:00 02/23/19 08:59 01/25/19 08:57 Vancomycin HCl (Vanco rx to dose) 1 ea DAILY MISC 01/24/19 09:00 02/23/19 08:59 01/25/19 09:00 Vancomycin HCl 1 gm/Dextrose 275 ml @ 183.708 mls/hr Q24H IVPB 01/24/19 10:00 01/29/19 09:59 01/25/19 10:05 Zolpidem Tartrate (Ambien) 5 mg BEDTIME PRN GT Insomnia 01/24/19 05:30 01/31/19 05:29 Amaury Chan MD Jan 26, 2019 07:54
[2019-01-26 07:56] VITALS: BP 129/65
[2019-01-26] MEDS: Ferrous Sulfate 300 MG/5 ML UDC GT SCH ×2 (08:14→17:12)
[2019-01-26] MEDS: levETIRAcetam 500mg/5ml Liquid GT SCH ×2 (08:15→17:12)
[2019-01-26] MEDS: Ascorbic Acid 500mg tab ORAL SCH (08:15)
[2019-01-26] MEDS: Miralax 17gm pkt GT SCH (08:15)
[2019-01-26] MEDS: Heparin 5000 units/ml inj SUBQ SCH ×2 (08:18→20:26)
[2019-01-26] MEDS: Vancomycin 1gm in D5W 275ml IVPB SCH (09:06)
--- NOTE | 2019-01-26 10:44 | NUR ---
RADIOLOGY DEPT., CHEST X-RAY DONE.-P.DYE
[2019-01-26 12:00] VITALS: BP 111/44
--- NOTE | 2019-01-26 14:44 | Diagnostic Imaging Report ---
Indication: Dyspnea Comparison: 01/25/2019 A single view chest radiograph was obtained. Findings: Increasing density at the left lung base with signs of volume loss noted and silhouetting of the left hemidiaphragm. Tracheostomy again demonstrated. Lung volumes are low bilaterally. IMPRESSION: Left basal atelectasis. Superimposed pneumonia not excluded
--- NOTE | 2019-01-26 15:13 | NUR ---
NURSE NOTES:WOUND CARE NOTES: Pt presented on admission with resolving full thickness pressure injury L ischium. Base of wound is moist, erythematous with small amt biofilm. Edges are macerated with surrounding hyperpigmentation.(L)2cm x (W)1cm x (D)0.3cm. Hyperpigmentations from previous wound noted to R ischium. Small areas of shearing with surrounding hyperpigmentation noted to R and L sacrum. R and L heels are soft but blanchable. Bilat foot drop noted. Tx.Plan: Cleanse L Ischial wound with Saline. Apply Therahoney. Apply Moisture Barrier Paste periwound. Cover with Optifoam drsg every 3 days and prn. Apply Moisture Barrier Paste to sacrum and R ischium. Cover each site with Optifoam drsg. Change every 3 days and PRN. Apply Cavilon Skin Barrier to both heels. Cover each heel with Optifoam drsg. Change every 7 days and Prn. Reposition aty least every 2hours or as tolerated. Off-load heels with pillow.
--- NOTE | 2019-01-26 15:29 | Surgery Progress Note ---
Surgery Progress Note Subjective Additional Comments No acute events. Exam stable. Wound stable. Labs noted. Objective Last 24 Hour Vital Signs Date Time Temp Pulse Resp B/P (MAP) Pulse Ox O2 Delivery O2 Flow Rate FiO2 01/26/19 13:10 70 15 30 01/26/19 12:00 Mechanical Ventilator 01/26/19 12:00 30 01/26/19 12:00 97.5 67 14 111/44 (66) 99 01/26/19 11:33 65 01/26/19 11:25 72 14 100 Mechanical Ventilator 40.0 30 72 14 100 01/26/19 11:21 69 14 30 01/26/19 09:32 78 14 30 01/26/19 08:15 74 129/65 01/26/19 07:56 79 01/26/19 07:56 99.0 74 14 129/65 (86) 99 01/26/19 07:39 30 01/26/19 07:38 Mechanical Ventilator 01/26/19 07:00 74 14 98 Mechanical Ventilator 30 78 14 30 01/26/19 05:13 86 17 30 01/26/19 04:00 98.2 81 14 139/67 (91) 99 01/26/19 04:00 78 01/26/19 04:00 30 01/26/19 04:00 Mechanical Ventilator 01/26/19 03:08 82 14 100 Mechanical Ventilator 30 01/26/19 02:58 85 16 100 Mechanical Ventilator 30 85 16 30 01/26/19 01:08 75 14 30 01/26/19 00:00 Mechanical Ventilator 01/26/19 00:00 30 01/26/19 00:00 102 01/26/19 00:00 98.2 82 14 124/66 (85) 99 01/25/19 23:13 65 14 100 Mechanical Ventilator 30 01/25/19 23:02 70 14 100 Mechanical Ventilator 30 70 14 30 01/25/19 20:55 74 15 30 01/25/19 20:00 Mechanical Ventilator 01/25/19 20:00 98.4 77 14 134/69 (90) 100 01/25/19 20:00 84 01/25/19 20:00 30 01/25/19 19:08 81 14 100 Mechanical Ventilator 30 01/25/19 18:58 79 14 100 Mechanical Ventilator 30 79 14 30 01/25/19 17:09 78 14 30 01/25/19 16:00 99.0 79 14 119/78 (92) 100 01/25/19 16:00 30 01/25/19 16:00 Mechanical Ventilator 01/25/19 15:29 74 14 30 I&O Intake and Output 01/25/19 01/26/19 19:00 07:00 Intake Total 427.5 ml 607.583 ml Output Total 250 ml 25 ml Balance 177.5 ml 582.583 ml Free Water 100 ml 100 ml IV Total 27.5 ml 147.583 ml Tube Feeding 300 ml 360 ml Output Urine Total 250 ml 25 ml # Voids 1 # Bowel Movements 4 2 Dressing: saturated Wound: other Drains: other Cardiovascular: RSR Respiratory: decreased breath sounds Abdomen: soft, present bowel sounds, non-distended Extremities: no tenderness, no cyanosis, other Laboratory Tests Test 01/26/19 04:00 Sodium Level 142 MMOL/L (136-145) Potassium Level 3.7 MMOL/L (3.5-5.1) Chloride Level 107 MMOL/L (98-107) Carbon Dioxide Level 28 MMOL/L (21-32) Anion Gap 7 mmol/L (5-15) Blood Urea Nitrogen 19 mg/dL (7-18) H Creatinine 1.1 MG/DL (0.55-1.30) Estimat Glomerular Filtration Rate mL/min (>60) Glucose Level 97 MG/DL (74-106) Calcium Level 8.7 MG/DL (8.5-10.1) Total Bilirubin 0.3 MG/DL (0.2-1.0) Aspartate Amino Transf (AST/SGOT) 35 U/L (15-37) Alanine Aminotransferase (ALT/SGPT) 53 U/L (12-78) Alkaline Phosphatase 162 U/L (46-116) H Total Protein 7.3 G/DL (6.4-8.2) Albumin 2.4 G/DL (3.4-5.0) L Globulin 4.9 g/dL Albumin/Globulin Ratio 0.5 (1.0-2.7) L Plan Problems: (1) Sacral decubitus ulcer Assessment & Plan: This is a 83-year-old female with multiple medical committees that is currently admitted for medical care and management and identified to have multiple wounds requiring care. On admission patient noted to have a resolved sacral decubitus ulcer. Has had prior care and is well-healed at this time. Will ensure it does not open up again. Patient has a right ischial decubitus ulcer that is resolved. Scar intact and well formed. Will monitor to ensure it does not open up again. Patient has a left ischial decubitus ulcer that can be identified to be stage IV with palpable bone that has been resolving as noted by the periwound tissue and scar but open area approximately 1 cm x 1.5 cm few millimeters deep to bone identified. Unsure if this is been to be completely healed prior and has since opened or if has been healing at this level. No foul odor no drainage was unsure local wound care until healed Bilateral heels soft without signs of injury Treatment plan: Please apply skin protectant and optifoam to sacral area. Change every 3 days Please apply skin protectant and optifoam to right ischial area. Change every 3 days Please apply Thera honey infused gauze to small opening in the left ischial wound bed followed by skin protectant in the periwound and up to foam. Change daily as needed saturation Offload pressure from heels with pillow Air soft mattress Turn every 2 hours Nutritional optimization We will monitor follow with recommendations (2) Sepsis Assessment & Plan: IV abx as per ID trend labs wounds unlikely etiology likely respiratory DAILY ESTIMATED NEEDS: Needs based on Critical care, wounds/ 60kg adj 22-28 kcals/kg 0915-2986 total kcals 1.25-2 g protein/kg 75-120 g total protein 25-30 mL/kg 2745-6369 total fluid mLs NUTRITION DIAGNOSIS: * Swallowing difficulty R/T respiratory status as evidenced by trach/vent dep, PEG dep. * Increased kcal/prot needs R/T wound healing as evidenced by BL buttocks and sacral wound photos, pending evaluation. 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
[2019-01-26 16:00] VITALS: BP 115/95
--- NOTE | 2019-01-26 17:45 | Consultation ---
DATE OF CONSULTATION: 01/26/2019 INFECTIOUS DISEASES CONSULTATION CONSULTING PHYSICIAN: Geovany Yang M.D. REFERRING PHYSICIAN: Irvin Beltrán M.D. REASON FOR CONSULTATION: Pneumonia. HISTORY OF PRESENT ILLNESS: This is an 83-year-old lady with history of respiratory failure status post tracheostomy, pneumonia, hypertension, hypothyroidism, dementia, seizures who comes in with increasing cough and congestion. She was found to have bilateral pneumonia and an Infectious Diseases consultation has been obtained for antibiotics. PAST MEDICAL HISTORY: 1. History of respiratory failure. 2. Pneumonia. 3. Hypertension. 4. Hypothyroidism. 5. Dementia. 6. Seizures. 7. Stroke. 8. Status post G-tube placement. SOCIAL HISTORY: No history of smoking, alcohol, or drug use. FAMILY HISTORY: Noncontributory. REVIEW OF SYSTEMS: Unable to obtain currently. MEDICATIONS: As an inpatient, the patient is on chlorhexidine gluconate, ascorbic acid, albuterol ipratropium, vancomycin, subcutaneous heparin, amlodipine, famotidine, ferrous sulfate, folic acid, Keppra, MiraLAX, Zosyn, docusate, Dulcolax, inhaled colistin, Zofran, Ambien. ALLERGIES: Codeine. PHYSICAL EXAMINATION: VITAL SIGNS: Temperature of 99, T-max of 99, pulse of 69, respiratory rate of 14, blood pressure of 129/65, O2 saturation of 100%. HEENT: Pupils equally reactive to light and accommodation. Mouth appears clean without thrush. NECK: Supple. No adenopathy. No JVD. Tracheostomy site appears clean. CARDIOVASCULAR: Regular rate and rhythm. No murmurs. LUNGS: Clear to auscultation bilaterally. No crackles. No wheezes. ABDOMEN: Soft and nontender. G-tube site appears clean. EXTREMITIES: No cyanosis, no clubbing, no edema. LABORATORY AND DIAGNOSTIC DATA: White count 7.5, hemoglobin 9.6, hematocrit 30.7, MCV 87, platelet count of 250 with neutrophils of 61%. Sodium 142, potassium 3.7, chloride 107, bicarb 28, BUN 19, creatinine 1.1, glucose 97, calcium 8.7, total bilirubin 0.3. AST 35, ALT 53, alkaline phosphatase 162, total protein 7.3, albumin 2.4. UA showing 0 to 2 white cells. Blood cultures are negative. Nasal swab was negative for MRSA. Rectal swab was positive for VRE. Chest x-ray showing improved appearance. cultures from prior admission 12/24/2018. Sputum culture grew E. coli and Proteus. ASSESSMENT: This 83-year-old lady with history of respiratory failure, status post tracheostomy who comes in now with cough and congestion and is found to have bilateral pneumonia. 1. Seizure disorder. 2. CVA. 3. Dementia. 4. Hypertension. PLAN: 1. Continue Zosyn and inhaled colistin. 2. We will order sputum for Gram stain and culture. 3. We will follow up cultures and adjust antibiotics accordingly. I would like to thank, Dr. Beltrán, for this consultation. Geovany Yang M.D. DR: Ale JOB#: [id number] CC: Irvin Beltrán M.D.
--- NOTE | 2019-01-26 19:08 | NUR ---
RESPIRATORY NOTE: Received pt on AC 14, 450VT, 30%, PEEP +5. Pt is trach-dependent w/ a cuffed, Shiley 6 XLT tube. Pt flat effect, responds to stimuli. b/S flory. rhonchi, sxn small amounts of thick/thin/frothy, pale-yellow secretions. Vent plugged into red outlet, ambubag at bedside. Pt in no apparent distress at this time. Will continue plan of care.
--- NOTE | 2019-01-26 19:20 | NUR ---
HAND-OFF: Report given to amy mann.
[2019-01-26] MEDS ORDERED: DULCOLAX10 MG RC (19:41)
[2019-01-26] MEDS ORDERED: VITAMIN C500 M1 GT (19:41)
[2019-01-26] MEDS ORDERED: ALBUTEROL2.5 MG/3 M INH (19:41)
[2019-01-26] MEDS ORDERED: EPOGEN10000 UNIT SUBQ (19:41)
[2019-01-26] MEDS ORDERED: ACETAMINOP160 MG/52 ORAL (19:41)
[2019-01-26] MEDS ORDERED: FLEET ENEMA133 ML RECTAL (19:41)
[2019-01-26] MEDS ORDERED: LEVAQUIN500 MG GT (19:41)
[2019-01-26] MEDS ORDERED: LEVETIRACE100 MG/1 M GT (19:41)
[2019-01-26] MEDS ORDERED: MULTI-DELYN237 ML GT (19:41)
--- NOTE | 2019-01-26 19:41 | NUR ---
NURSE NOTES: received patient from JEANNINE Britt. patient is observed in bed, obtunded, unable to make needs known. no s/sx of pain noted at this time. vent to trach settings are as follows: Shiley: 6, AC: 14, TV: 450, FiO2: 30%, PEEP: 5. tolerating well, saturating at 98%, no s/sx of respiratory distress noted at this time. G-tube site is patent and intact, running Glucerna 1.5 at 30 cc/hr. HOB elevated, no residual noted. Purewick applied, draining fernando urine to suction. skin alterations noted. Right femoral central line noted, running fluids TKO; dressing dry and intact. bed in lowest position and locked, padded siderails X3, call light within reach. will continue to monitor.
[2019-01-26 20:00] VITALS: BP 138/61
[2019-01-26] MEDS: Dyna-Hex 2% Top Sol 2oz TOPIC SCH (20:25)
[2019-01-27] VITALS: BP 131/62
[2019-01-27] MEDS: Albuterol/Ipratropium 3ml neb HHN SCH ×5 (02:50→19:04)
--- NOTE | 2019-01-27 03:45 | Progress Note ---
DATE: 01/26/2019 CARDIOLOGY PROGRESS NOTE SUBJECTIVE: The patient remains on ventilator support. Continues with suctioning and respiratory therapy around the clock. Tolerating G-tube feedings. OBJECTIVE: VITAL SIGNS: Blood pressure 138/61, pulse 79, and respirations 15. Afebrile. LUNGS: Clear. HEART: Regular rhythm and rate. Normal S1, S2 with no new murmur. ABDOMEN: Soft. G-tube site intact. EXTREMITIES: No edema. LABORATORY DATA: Sodium 142, potassium 3.7, bicarb 28, BUN 19, and creatinine 1.1. Albumin 2.4. IMPRESSION: 1. Respiratory failure. 2. Sepsis. 3. Healthcare-acquired pneumonia. 4. Chronic diastolic congestive heart failure. 5. Severe protein-calorie malnutrition. 6. Anemia of chronic disease. 7. Chronic respiratory failure. PLAN: 1. Respiratory hygiene. 2. Antimicrobials. 3. DVT and stress ulcer prophylaxis. 4. Monitor volume status, cardiorenal function, and trend natriuretic peptide assay to guide long-term cardiovascular regimen. Presently, no indication for additional for diuretic therapy. Bg Hagen M.D. DR: DAMEON JOB#: [id number] CC:
[2019-01-27 04:00] VITALS: BP 123/58
[2019-01-27 05:00] LABS: BASOPHILS % (AUTO) 0.8 % (0.0-2.0); HEMATOCRIT 27.4 % (37.0-47.0); HEMOGLOBIN 8.7 G/DL (12.0-16.0); MEAN CORPUSCULAR VOLUME 86 FL (80-99); MONOCYTES % (AUTO) 6.5 % (1.0-10.0); NEUTROPHILS % (AUTO) 54.6 % (45.0-75.0); PLATELET COUNT 220 K/UL (150-450); RED BLOOD COUNT 3.17 M/UL (4.20-5.40); RED CELL DISTRIBUTION WIDTH 16.9 % (11.6-14.8); WHITE BLOOD COUNT 8.3 K/UL (4.8-10.8)
[2019-01-27 05:18] LABS: ALANINE AMINOTRANSFERASE 54 U/L (12-78); ALBUMIN 2.6 G/DL (3.4-5.0); ALBUMIN/GLOBULIN RATIO 0.5 (1.0-2.7); ALKALINE PHOSPHATASE 155 U/L (46-116); ANION GAP 8 mmol/L (5-15); ASPARTATE AMINO TRANSFERASE 35 U/L (15-37); BILIRUBIN,TOTAL 0.3 MG/DL (0.2-1.0); BLOOD UREA NITROGEN 14 mg/dL (7-18); CALCIUM 8.8 MG/DL (8.5-10.1); CARBON DIOXIDE 30 MMOL/L (21-32); CHLORIDE 107 MMOL/L (98-107); CREATININE 1.1 MG/DL (0.55-1.30); POTASSIUM 3.7 MMOL/L (3.5-5.1); SODIUM 144 MMOL/L (136-145)
[2019-01-27] MEDS: Piperacillin/Tazobactam 3.375 GM in NS 110 ML IVPB SCH ×3 (05:51→22:16)
--- NOTE | 2019-01-27 07:13 | NUR ---
RESPIRATORY NOTE: Received pt on AC 14-500ml-30%FiO2- peep 5. Pt is trach dependent with Trach cuffed, ShileyXLT 6, secured with trach ties. Pt is obtunded, unable to follow commands. Breathing TX Duoneb given without any adverse reactions. No SOB or resp distress noted at this time. Alarms are set and audible, vent is plugged into the red outlet, ambu bag and spare trach kit are at bedside. Will continue to monitor pt.
--- NOTE | 2019-01-27 07:25 | NUR ---
NURSE NOTES: RECEIVED BED SIDE REPORT FROM [employer]. RECEIVED PT WITH HOB ELEVATED 45DEGREE, OBTUNDED ,DNR STATUS, TRACH TO VENT. PT TOLERATING WELL WELL CURRENTS VENT SETTINGS,O2 SAT 100%.RENDERED TRACH CARE AND ORAL HYGIENE,SX,D MOD AMT OF WHITE TICK SECRETIONS NOTED.PT WITH GT RECEIVING GLUCERNA 1.5 @ 30CC/HRS TOLERATING WELL,NO RESIDUAL NOTED AT THIS TIME.PT REPOSITIONED IN BED Q2HRS TO PROVIDE COMFORT AND TO PREVENT FURTHER SKIN BREAK DOWN.PT WITH TLC ON RT FEMORAL AREA DSG DRY AND INTACT.NO ACUTE DISTRESS NOTED AT THIS TIME. WILL CONT TO MONITOR.
--- NOTE | 2019-01-27 07:26 | General Progress Note ---
Assessment/Plan Problem List: (1) Seizure ICD Codes: R56.9 - Unspecified convulsions SNOMED: 96813499 (2) Anemia ICD Codes: D64.9 - Anemia, unspecified SNOMED: 144452351 Qualifiers: Qualified Codes: D64.9 - Anemia, unspecified (3) Sepsis ICD Codes: A41.9 - Sepsis, unspecified organism SNOMED: 77642025, 304224941 Qualifiers: Qualified Codes: A41.9 - Sepsis, unspecified organism (4) Respiratory failure with hypoxia ICD Codes: J96.91 - Respiratory failure, unspecified with hypoxia SNOMED: 21370548705778407 Qualifiers: Qualified Codes: J96.21 - Acute and chronic respiratory failure with hypoxia (5) HCAP (healthcare-associated pneumonia) ICD Codes: J18.9 - Pneumonia, unspecified organism SNOMED: 581640576, 568382419 (6) Sacral decubitus ulcer ICD Codes: L89.159 - Pressure ulcer of sacral region, unspecified stage SNOMED: 025235026 (7) HTN (hypertension) ICD Codes: I10 - Essential (primary) hypertension SNOMED: 67332113 (8) Chronic vegetative state ICD Codes: R40.3 - Persistent vegetative state SNOMED: 95522899 (9) Chronic respiratory failure ICD Codes: J96.10 - Chronic respiratory failure, unspecified whether with hypoxia or hypercapnia SNOMED: 61361195 (10) Limited mobility ICD Codes: Z74.09 - Other reduced mobility SNOMED: 9852609 Status: stable Assessment/Plan: cont vent support resp rx suctioning as needed gt feeds monitor for aspiration iv abx per id follow up cultures monitor cxr- not improved check iron panel/stool ob repeat cbc may need transfusion Subjective ROS Limited/Unobtainable: No Constitutional: Reports: malaise, weakness HEENT: Reports: no symptoms Cardiovascular: Reports: no symptoms Respiratory: Reports: shortness of breath, sputum Gastrointestinal/Abdominal: Reports: difficulty swallowing Genitourinary: Reports: no symptoms Neurologic/Psychiatric: Reports: pre-existing deficit, seizure Endocrine: Reports: no symptoms Hematologic/Lymphatic: Reports: anemia Allergies: Coded Allergies: CODEINE (Verified Allergy, Unknown, HIVES, 09/15/09) All Systems: reviewed and negative except above Subjective no events. on the vent. poorly responsive. tolerating feeds. remains congested. on iv abx. no vomiting ID appreciated. Objective Last 24 Hour Vital Signs Date Time Temp Pulse Resp B/P (MAP) Pulse Ox O2 Delivery O2 Flow Rate FiO2 01/27/19 04:49 69 17 30 01/27/19 04:00 30 01/27/19 04:00 Mechanical Ventilator 01/27/19 04:00 61 01/27/19 04:00 98.2 61 14 123/58 (79) 100 01/27/19 03:00 78 23 100 Mechanical Ventilator 30 01/27/19 02:50 70 14 100 Mechanical Ventilator 30 70 14 30 01/27/19 01:08 79 15 30 01/27/19 00:00 98.2 68 15 131/62 (85) 100 01/27/19 00:00 Mechanical Ventilator 01/27/19 00:00 88 01/26/19 23:53 68 14 100 Mechanical Ventilator 30 01/26/19 23:42 73 16 100 Mechanical Ventilator 30 73 16 30 01/26/19 21:19 63 14 30 01/26/19 20:00 30 01/26/19 20:00 71 01/26/19 20:00 98.1 79 15 138/61 (86) 99 01/26/19 20:00 Mechanical Ventilator 01/26/19 19:15 81 15 100 Mechanical Ventilator 30 01/26/19 19:05 74 16 99 Mechanical Ventilator 30 01/26/19 18:42 67 15 30 01/26/19 17:06 78 15 30 01/26/19 16:00 98.8 73 14 115/95 (102) 100 01/26/19 16:00 Mechanical Ventilator 01/26/19 16:00 30 01/26/19 15:48 68 01/26/19 15:29 68 14 30 01/26/19 13:10 70 15 30 01/26/19 12:00 Mechanical Ventilator 01/26/19 12:00 30 01/26/19 12:00 97.5 67 14 111/44 (66) 99 01/26/19 11:33 65 01/26/19 11:25 72 14 100 Mechanical Ventilator 40.0 30 72 14 100 01/26/19 11:21 69 14 30 01/26/19 09:32 78 14 30 01/26/19 08:15 74 129/65 01/26/19 07:56 79 01/26/19 07:56 99.0 74 14 129/65 (86) 99 01/26/19 07:39 30 01/26/19 07:38 Mechanical Ventilator Intake and Output 01/26/19 01/27/19 18:59 06:59 Intake Total 1029.916 ml 490.0 ml Output Total 100 ml 150 ml Balance 929.916 ml 340.0 ml Free Water 110 ml 50 ml IV Total 559.916 ml 110.0 ml Tube Feeding 360 ml 330 ml Output Urine Total 100 ml 150 ml # Voids 1 # Bowel Movements 3 4 Laboratory Tests 01/27/19 03:45: White Blood Count 8.3, Red Blood Count 3.17L, Hemoglobin 8.7L, Hematocrit 27.4L , Mean Corpuscular Volume 86, Mean Corpuscular Hemoglobin 27.6, Mean Corpuscular Hemoglobin Concent 31.9L, Red Cell Distribution Width 16.9H, Platelet Count 220, Mean Platelet Volume 5.6L, Neutrophils (%) (Auto) 54.6, Lymphocytes (%) (Auto) 33.0, Monocytes (%) (Auto) 6.5, Eosinophils (%) (Auto) 5.0H, Basophils (%) (Auto) 0.8, Sodium Level 144, Potassium Level 3.7, Chloride Level 107, Carbon Dioxide Level 30, Anion Gap 8, Blood Urea Nitrogen 14, Creatinine 1.1, Estimat Glomerular Filtration Rate , Glucose Level 96, Calcium Level 8.8, Total Bilirubin 0.3, Aspartate Amino Transf (AST/SGOT) 35, Alanine Aminotransferase (ALT/SGPT) 54, Alkaline Phosphatase 155H, Total Protein 7.7, Albumin 2.6L, Globulin 5.1, Albumin/Globulin Ratio 0.5L Height (Feet): 5 Height (Inches): 5.00 Weight (Pounds): 150 Objective General Appearance: WD/WN, confused Neck: supple Cardiovascular: normal rate, regular rhythm Respiratory/Chest: chest wall non-tender, rhonchi - bilaterally Abdomen: normal bowel sounds, non tender, soft, no organomegaly Edema: no edema noted Arm (L), no edema noted Arm (R), no edema noted Leg (L), no edema noted Leg (R), no edema noted Pedal (L), no edema noted Pedal (R), no edema noted Generalized Neurologic: disoriented, unresponsive, aphasia Irvin Beltrán MD Jan 27, 2019 07:26
--- NOTE | 2019-01-27 07:43 | NUR ---
HAND-OFF: Report given to JEANNINE Hahn. patient is in stable condition.
[2019-01-27 08:01] VITALS: BP 116/62
--- NOTE | 2019-01-27 09:11 | Pulmonology Progress Note ---
Assessment/Plan Assessment/Plan Impression: Sepsis syncrome Pneumonia VDRF, Trach, G tube, Hypertension, Cardiac disease, Dementia, Previous CVA, Seizure disorder, Respiratory failure with hypoxia Anemia Sacral ulcer Plan IV Antibiotics IVF maintain SNF meds vent support as is and try to wean HHN O2 RX Monitor labs PUD and DVT prophylaxis Patient is a DNR. No CPR. agree with transfusion impression, plan, and exam edited and reviewed in detail care discussed with RN Subjective ROS Limited/Unobtainable: Yes Allergies: Coded Allergies: CODEINE (Verified Allergy, Unknown, HIVES, 09/15/09) Subjective currently on the ventilator some congestion supportive care noted Objective Last 24 Hour Vital Signs Date Time Temp Pulse Resp B/P (MAP) Pulse Ox O2 Delivery O2 Flow Rate FiO2 01/27/19 08:01 97.9 70 16 116/62 (80) 100 01/27/19 08:00 30 01/27/19 08:00 Mechanical Ventilator 01/27/19 07:13 68 14 100 Mechanical Ventilator 30 69 16 30 01/27/19 04:49 69 17 30 01/27/19 04:00 30 01/27/19 04:00 Mechanical Ventilator 01/27/19 04:00 61 01/27/19 04:00 98.2 61 14 123/58 (79) 100 01/27/19 03:00 78 23 100 Mechanical Ventilator 30 01/27/19 02:50 70 14 100 Mechanical Ventilator 30 70 14 30 01/27/19 01:08 79 15 30 01/27/19 00:00 98.2 68 15 131/62 (85) 100 01/27/19 00:00 Mechanical Ventilator 01/27/19 00:00 88 01/26/19 23:53 68 14 100 Mechanical Ventilator 30 01/26/19 23:42 73 16 100 Mechanical Ventilator 30 73 16 30 01/26/19 21:19 63 14 30 01/26/19 20:00 30 01/26/19 20:00 71 01/26/19 20:00 98.1 79 15 138/61 (86) 99 01/26/19 20:00 Mechanical Ventilator 01/26/19 19:15 81 15 100 Mechanical Ventilator 30 01/26/19 19:05 74 16 99 Mechanical Ventilator 30 01/26/19 18:42 67 15 30 01/26/19 17:06 78 15 30 01/26/19 16:00 98.8 73 14 115/95 (102) 100 01/26/19 16:00 Mechanical Ventilator 01/26/19 16:00 30 01/26/19 15:48 68 01/26/19 15:29 68 14 30 01/26/19 13:10 70 15 30 01/26/19 12:00 Mechanical Ventilator 01/26/19 12:00 30 01/26/19 12:00 97.5 67 14 111/44 (66) 99 01/26/19 11:33 65 01/26/19 11:25 72 14 100 Mechanical Ventilator 40.0 30 72 14 100 01/26/19 11:21 69 14 30 01/26/19 09:32 78 14 30 Intake and Output 01/26/19 01/27/19 18:59 06:59 Intake Total 1029.916 ml 517.5 ml Output Total 100 ml 150 ml Balance 929.916 ml 367.5 ml Free Water 110 ml 50 ml IV Total 559.916 ml 137.5 ml Tube Feeding 360 ml 330 ml Output Urine Total 100 ml 150 ml # Voids 1 # Bowel Movements 3 4 Objective WDWN NAD contracted on vent reduced breath sounds bilaterally without rhonchi or wheeze [id number] without MRG NABS nontender no HSM no CC minimal nonfocal nonverbal trach and gt Laboratory Tests 01/27/19 03:45: White Blood Count 8.3, Red Blood Count 3.17L, Hemoglobin 8.7L, Hematocrit 27.4L , Mean Corpuscular Volume 86, Mean Corpuscular Hemoglobin 27.6, Mean Corpuscular Hemoglobin Concent 31.9L, Red Cell Distribution Width 16.9H, Platelet Count 220, Mean Platelet Volume 5.6L, Neutrophils (%) (Auto) 54.6, Lymphocytes (%) (Auto) 33.0, Monocytes (%) (Auto) 6.5, Eosinophils (%) (Auto) 5.0H, Basophils (%) (Auto) 0.8, Sodium Level 144, Potassium Level 3.7, Chloride Level 107, Carbon Dioxide Level 30, Anion Gap 8, Blood Urea Nitrogen 14, Creatinine 1.1, Estimat Glomerular Filtration Rate , Glucose Level 96, Calcium Level 8.8, Total Bilirubin 0.3, Aspartate Amino Transf (AST/SGOT) 35, Alanine Aminotransferase (ALT/SGPT) 54, Alkaline Phosphatase 155H, Total Protein 7.7, Albumin 2.6L, Globulin 5.1, Albumin/Globulin Ratio 0.5L 01/27/19 09:00: Iron Level [Pending], Vancomycin Level Trough [Pending] Current Medications Medications (Trade) Dose Ordered Sig/Maicol Route PRN Reason Start Time Stop Time Status Last Admin Dose Admin Albuterol/ Ipratropium (Albuterol/ Ipratropium) 3 ml Q4HRT HHN 01/24/19 15:00 01/29/19 14:59 01/27/19 07:05 Amlodipine Besylate (Norvasc) 10 mg DAILY GT 01/24/19 09:00 02/23/19 08:59 01/26/19 08:15 Ascorbic Acid (Vitamin C) 250 mg DAILY ORAL 01/25/19 09:00 02/24/19 08:59 01/26/19 08:15 Bisacodyl (Dulcolax) 10 mg PRN PRN RECTAL Constipation 01/24/19 05:30 02/23/19 05:29 Chlorhexidine Gluconate (Cesilia-Hex 2%) 1 applic DAILY@2000 TOPIC 01/25/19 20:00 02/24/19 19:59 01/26/19 20:25 Colistimethate Sodium (Colistin *inhalation use only*) 150 mg Q12H PRN INH Shortness of breath 01/24/19 05:30 01/31/19 05:29 Docusate Sodium (Colace) 100 mg DAILY PRN GT Constipation 01/24/19 05:45 02/23/19 05:29 Famotidine (Pepcid) 20 mg DAILY GT 01/24/19 09:00 02/23/19 08:59 01/26/19 08:15 Ferrous Sulfate (Feosol) 300 mg BID GT 01/24/19 09:00 02/23/19 08:59 01/26/19 17:12 Folic Acid (Folate) 1 mg DAILY GT 01/24/19 09:00 02/23/19 08:59 01/26/19 08:15 Heparin Sodium (Porcine) (Heparin 5000 units/ml) 5,000 units EVERY 12 HOURS SUBQ 01/24/19 09:00 02/23/19 08:59 01/26/19 20:26 Levetiracetam (Keppra) 750 mg BID GT 01/24/19 09:00 02/23/19 08:59 01/26/19 17:12 Ondansetron HCl (Zofran) 4 mg Q6H PRN GT Nausea & Vomiting 01/24/19 05:30 02/23/19 05:29 Piperacillin Sod/ Tazobactam Sod 3.375 gm/Sodium Chloride 110 ml @ 27.5 mls/hr EVERY 8 HOURS IVPB 01/24/19 06:00 01/29/19 05:59 01/27/19 05:51 Polyethylene Glycol (Miralax) 17 gm DAILY GT 01/24/19 09:00 02/23/19 08:59 01/25/19 08:57 Vancomycin HCl (Vanco rx to dose) 1 ea DAILY MISC 01/24/19 09:00 02/23/19 08:59 01/26/19 09:06 Vancomycin HCl 1 gm/Dextrose 275 ml @ 183.708 mls/hr Q24H IVPB 01/24/19 10:00 01/29/19 09:59 01/26/19 09:06 Zolpidem Tartrate (Ambien) 5 mg BEDTIME PRN GT Insomnia 01/24/19 05:30 01/31/19 05:29 Amaury Chan MD Jan 27, 2019 09:11
[2019-01-27] MEDS: Miralax 17gm pkt GT SCH (10:03)
[2019-01-27] MEDS: Ascorbic Acid 500mg tab ORAL SCH (10:04)
[2019-01-27] MEDS: levETIRAcetam 500mg/5ml Liquid GT SCH ×2 (10:04→18:28)
[2019-01-27] MEDS: Ferrous Sulfate 300 MG/5 ML UDC GT SCH ×2 (10:04→18:28)
[2019-01-27] MEDS: Heparin 5000 units/ml inj SUBQ SCH ×2 (10:10→21:19)
[2019-01-27] MEDS: Vancomycin 1gm in D5W 275ml IVPB SCH (10:20)
--- NOTE | 2019-01-27 10:30 | NUR ---
NURSE NOTES: RENDERED TOTAL AM NURSING CARE DONE AND WOUND CARE. DR RICE CAME TO SEE PT WOUNDS. PT TOLERATING WELL WOUND CARE . NO ACUTE DISTRESS NOTED AT THIS TIME. WILL CONT TO MONITOR.
--- NOTE | 2019-01-27 10:53 | Infectious Diseases Prog Note ---
Assessment/Plan Assessment/Plan antibiotics : vancomycin iv, zosyn, inhaled colistin A 1. pneumonia 2. respiratory failure 3. hypertension 4. CVA 5. dementia 6. sacral decubitus ulcer 7. rectal VRE colonization P 1. continue vancomycin iv, zosyn, inhaled colistin 2. will follow up cultures Subjective ROS Limited/Unobtainable: Yes Allergies: Coded Allergies: CODEINE (Verified Allergy, Unknown, HIVES, 09/15/09) Objective Vital Signs Last 24 Hour Vital Signs Date Time Temp Pulse Resp B/P (MAP) Pulse Ox O2 Delivery O2 Flow Rate FiO2 01/27/19 10:04 69 116/62 01/27/19 09:04 69 14 30 01/27/19 08:01 97.9 70 16 116/62 (80) 100 01/27/19 08:00 30 01/27/19 08:00 Mechanical Ventilator 01/27/19 07:13 68 14 100 Mechanical Ventilator 30 69 16 30 01/27/19 04:49 69 17 30 01/27/19 04:00 30 01/27/19 04:00 Mechanical Ventilator 01/27/19 04:00 61 01/27/19 04:00 98.2 61 14 123/58 (79) 100 01/27/19 03:00 78 23 100 Mechanical Ventilator 30 01/27/19 02:50 70 14 100 Mechanical Ventilator 30 70 14 30 01/27/19 01:08 79 15 30 01/27/19 00:00 98.2 68 15 131/62 (85) 100 01/27/19 00:00 Mechanical Ventilator 01/27/19 00:00 88 01/26/19 23:53 68 14 100 Mechanical Ventilator 30 01/26/19 23:42 73 16 100 Mechanical Ventilator 30 73 16 30 01/26/19 21:19 63 14 30 01/26/19 20:00 30 01/26/19 20:00 71 01/26/19 20:00 98.1 79 15 138/61 (86) 99 01/26/19 20:00 Mechanical Ventilator 01/26/19 19:15 81 15 100 Mechanical Ventilator 30 01/26/19 19:05 74 16 99 Mechanical Ventilator 30 01/26/19 18:42 67 15 30 01/26/19 17:06 78 15 30 01/26/19 16:00 98.8 73 14 115/95 (102) 100 01/26/19 16:00 Mechanical Ventilator 01/26/19 16:00 30 01/26/19 15:48 68 01/26/19 15:29 68 14 30 01/26/19 13:10 70 15 30 01/26/19 12:00 Mechanical Ventilator 01/26/19 12:00 30 01/26/19 12:00 97.5 67 14 111/44 (66) 99 01/26/19 11:33 65 01/26/19 11:25 72 14 100 Mechanical Ventilator 40.0 30 72 14 100 01/26/19 11:21 69 14 30 Height (Feet): 5 Height (Inches): 5.00 Weight (Pounds): 150 HEENT: status post trach Respiratory/Chest: lungs clear Cardiovascular: normal rate, regular rhythm, no gallop/murmur Abdomen: soft, non tender, other - GT Extremities: no edema Laboratory Tests Test 01/27/19 03:45 01/27/19 09:00 White Blood Count 8.3 K/UL (4.8-10.8) Red Blood Count 3.17 M/UL (4.20-5.40) L Hemoglobin 8.7 G/DL (12.0-16.0) L Hematocrit 27.4 % (37.0-47.0) L Mean Corpuscular Volume 86 FL (80-99) Mean Corpuscular Hemoglobin 27.6 PG (27.0-31.0) Mean Corpuscular Hemoglobin Concent 31.9 G/DL (32.0-36.0) L Red Cell Distribution Width 16.9 % (11.6-14.8) H Platelet Count 220 K/UL (150-450) Mean Platelet Volume 5.6 FL (6.5-10.1) L Neutrophils (%) (Auto) 54.6 % (45.0-75.0) Lymphocytes (%) (Auto) 33.0 % (20.0-45.0) Monocytes (%) (Auto) 6.5 % (1.0-10.0) Eosinophils (%) (Auto) 5.0 % (0.0-3.0) H Basophils (%) (Auto) 0.8 % (0.0-2.0) Sodium Level 144 MMOL/L (136-145) Potassium Level 3.7 MMOL/L (3.5-5.1) Chloride Level 107 MMOL/L (98-107) Carbon Dioxide Level 30 MMOL/L (21-32) Anion Gap 8 mmol/L (5-15) Blood Urea Nitrogen 14 mg/dL (7-18) Creatinine 1.1 MG/DL (0.55-1.30) Estimat Glomerular Filtration Rate mL/min (>60) Glucose Level 96 MG/DL (74-106) Calcium Level 8.8 MG/DL (8.5-10.1) Total Bilirubin 0.3 MG/DL (0.2-1.0) Aspartate Amino Transf (AST/SGOT) 35 U/L (15-37) Alanine Aminotransferase (ALT/SGPT) 54 U/L (12-78) Alkaline Phosphatase 155 U/L (46-116) H Total Protein 7.7 G/DL (6.4-8.2) Albumin 2.6 G/DL (3.4-5.0) L Globulin 5.1 g/dL Albumin/Globulin Ratio 0.5 (1.0-2.7) L Iron Level 34 ug/dL (50-175) L Vancomycin Level Trough 17.4 ug/mL (5.0-12.0) H Current Medications Medications (Trade) Dose Ordered Sig/Maicol Route PRN Reason Start Time Stop Time Status Last Admin Dose Admin Albuterol/ Ipratropium (Albuterol/ Ipratropium) 3 ml Q4HRT HHN 01/24/19 15:00 01/29/19 14:59 01/27/19 07:05 Amlodipine Besylate (Norvasc) 10 mg DAILY GT 01/24/19 09:00 02/23/19 08:59 01/27/19 10:04 Ascorbic Acid (Vitamin C) 250 mg DAILY ORAL 01/25/19 09:00 02/24/19 08:59 01/27/19 10:04 Bisacodyl (Dulcolax) 10 mg PRN PRN RECTAL Constipation 01/24/19 05:30 02/23/19 05:29 Chlorhexidine Gluconate (Cesilia-Hex 2%) 1 applic DAILY@2000 TOPIC 01/25/19 20:00 02/24/19 19:59 01/26/19 20:25 Colistimethate Sodium (Colistin *inhalation use only*) 150 mg Q12H PRN INH Shortness of breath 01/24/19 05:30 01/31/19 05:29 Docusate Sodium (Colace) 100 mg DAILY PRN GT Constipation 01/24/19 05:45 02/23/19 05:29 Famotidine (Pepcid) 20 mg DAILY GT 01/24/19 09:00 02/23/19 08:59 01/27/19 10:05 Ferrous Sulfate (Feosol) 300 mg BID GT 01/24/19 09:00 02/23/19 08:59 01/27/19 10:04 Folic Acid (Folate) 1 mg DAILY GT 01/24/19 09:00 02/23/19 08:59 01/27/19 10:20 Heparin Sodium (Porcine) (Heparin 5000 units/ml) 5,000 units EVERY 12 HOURS SUBQ 01/24/19 09:00 02/23/19 08:59 01/27/19 10:10 Levetiracetam (Keppra) 750 mg BID GT 01/24/19 09:00 02/23/19 08:59 01/27/19 10:04 Ondansetron HCl (Zofran) 4 mg Q6H PRN GT Nausea & Vomiting 01/24/19 05:30 02/23/19 05:29 Piperacillin Sod/ Tazobactam Sod 3.375 gm/Sodium Chloride 110 ml @ 27.5 mls/hr EVERY 8 HOURS IVPB 01/24/19 06:00 01/29/19 05:59 01/27/19 05:51 Polyethylene Glycol (Miralax) 17 gm DAILY GT 01/24/19 09:00 02/23/19 08:59 01/27/19 10:03 Vancomycin HCl (Vanco rx to dose) 1 ea DAILY MISC 01/24/19 09:00 02/23/19 08:59 01/27/19 09:00 Vancomycin HCl 1 gm/Dextrose 275 ml @ 183.708 mls/hr Q24H IVPB 01/24/19 10:00 01/29/19 09:59 01/27/19 10:20 Zolpidem Tartrate (Ambien) 5 mg BEDTIME PRN GT Insomnia 01/24/19 05:30 01/31/19 05:29 Geovany Yang MD Jan 27, 2019 10:53
[2019-01-27 12:00] VITALS: BP 130/61
--- NOTE | 2019-01-27 12:33 | NUR ---
CASE MANAGEMENT:REVIEW 01/27/19 SI: SEPSIS. PNA. RESPIRATORY FAILURE CAME W/TRACH COLLAR-->VENT 98.1 85 18 130/61 100% ON VENT SUPPORT @ 30% FIO2 H/H-8.7/27.4 IS: IV VANCOMYCIN Q24 IV ZOSYN Q8HRS DUONEB INH Q4HRS RTC : STEP DOWN UNIT
--- NOTE | 2019-01-27 13:01 | Surgery Progress Note ---
Surgery Progress Note Subjective Additional Comments no acute events comfortable appearing exam stable labs noted and improved dressings changed slowly healing still with incontinence of stool and urine which can interrupt wound healing Objective Last 24 Hour Vital Signs Date Time Temp Pulse Resp B/P (MAP) Pulse Ox O2 Delivery O2 Flow Rate FiO2 01/27/19 12:00 Mechanical Ventilator 01/27/19 12:00 98.1 85 18 130/61 (84) 100 01/27/19 12:00 30 01/27/19 11:42 79 14 100 Mechanical Ventilator 30 75 14 30 01/27/19 10:04 69 116/62 01/27/19 09:04 69 14 30 01/27/19 08:01 97.9 70 16 116/62 (80) 100 01/27/19 08:00 30 01/27/19 08:00 Mechanical Ventilator 01/27/19 07:13 68 14 100 Mechanical Ventilator 30 69 16 30 01/27/19 04:49 69 17 30 01/27/19 04:00 30 01/27/19 04:00 Mechanical Ventilator 01/27/19 04:00 61 01/27/19 04:00 98.2 61 14 123/58 (79) 100 01/27/19 03:00 78 23 100 Mechanical Ventilator 30 01/27/19 02:50 70 14 100 Mechanical Ventilator 30 70 14 30 01/27/19 01:08 79 15 30 01/27/19 00:00 98.2 68 15 131/62 (85) 100 01/27/19 00:00 Mechanical Ventilator 01/27/19 00:00 88 01/26/19 23:53 68 14 100 Mechanical Ventilator 30 01/26/19 23:42 73 16 100 Mechanical Ventilator 30 73 16 30 01/26/19 21:19 63 14 30 01/26/19 20:00 30 01/26/19 20:00 71 01/26/19 20:00 98.1 79 15 138/61 (86) 99 01/26/19 20:00 Mechanical Ventilator 01/26/19 19:15 81 15 100 Mechanical Ventilator 30 01/26/19 19:05 74 16 99 Mechanical Ventilator 30 01/26/19 18:42 67 15 30 01/26/19 17:06 78 15 30 01/26/19 16:00 98.8 73 14 115/95 (102) 100 10/28/19 16:00 Mechanical Ventilator 01/26/19 16:00 30 01/26/19 15:48 68 01/26/19 15:29 68 14 30 01/26/19 13:10 70 15 30 I&O Intake and Output 01/26/19 01/27/19 19:00 07:00 Intake Total 972.416 ml 517.5 ml Output Total 100 ml 150 ml Balance 872.416 ml 367.5 ml Free Water 110 ml 50 ml IV Total 532.416 ml 137.5 ml Tube Feeding 330 ml 330 ml Output Urine Total 100 ml 150 ml # Voids 1 # Bowel Movements 3 4 Dressing: saturated Wound: other Drains: other Cardiovascular: RSR Respiratory: clear, decreased breath sounds Abdomen: soft, present bowel sounds, non-distended Extremities: no cyanosis, other Laboratory Tests Test 01/27/19 03:45 01/27/19 09:00 White Blood Count 8.3 K/UL (4.8-10.8) Red Blood Count 3.17 M/UL (4.20-5.40) L Hemoglobin 8.7 G/DL (12.0-16.0) L Hematocrit 27.4 % (37.0-47.0) L Mean Corpuscular Volume 86 FL (80-99) Mean Corpuscular Hemoglobin 27.6 PG (27.0-31.0) Mean Corpuscular Hemoglobin Concent 31.9 G/DL (32.0-36.0) L Red Cell Distribution Width 16.9 % (11.6-14.8) H Platelet Count 220 K/UL (150-450) Mean Platelet Volume 5.6 FL (6.5-10.1) L Neutrophils (%) (Auto) 54.6 % (45.0-75.0) Lymphocytes (%) (Auto) 33.0 % (20.0-45.0) Monocytes (%) (Auto) 6.5 % (1.0-10.0) Eosinophils (%) (Auto) 5.0 % (0.0-3.0) H Basophils (%) (Auto) 0.8 % (0.0-2.0) Sodium Level 144 MMOL/L (136-145) Potassium Level 3.7 MMOL/L (3.5-5.1) Chloride Level 107 MMOL/L (98-107) Carbon Dioxide Level 30 MMOL/L (21-32) Anion Gap 8 mmol/L (5-15) Blood Urea Nitrogen 14 mg/dL (7-18) Creatinine 1.1 MG/DL (0.55-1.30) Estimat Glomerular Filtration Rate mL/min (>60) Glucose Level 96 MG/DL (74-106) Calcium Level 8.8 MG/DL (8.5-10.1) Total Bilirubin 0.3 MG/DL (0.2-1.0) Aspartate Amino Transf (AST/SGOT) 35 U/L (15-37) Alanine Aminotransferase (ALT/SGPT) 54 U/L (12-78) Alkaline Phosphatase 155 U/L (46-116) H Total Protein 7.7 G/DL (6.4-8.2) Albumin 2.6 G/DL (3.4-5.0) L Globulin 5.1 g/dL Albumin/Globulin Ratio 0.5 (1.0-2.7) L Iron Level 34 ug/dL (50-175) L Vancomycin Level Trough 17.4 ug/mL (5.0-12.0) H Plan Problems: (1) Sacral decubitus ulcer Assessment & Plan: This is a 83-year-old female with multiple medical committees that is currently admitted for medical care and management and identified to have multiple wounds requiring care. On admission patient noted to have a resolved sacral decubitus ulcer. Has had prior care and is well-healed at this time. Will ensure it does not open up again. Patient has a right ischial decubitus ulcer that is resolved. Scar intact and well formed. Will monitor to ensure it does not open up again. Patient has a left ischial decubitus ulcer that can be identified to be stage IV with palpable bone that has been resolving as noted by the periwound tissue and scar but open area approximately 1 cm x 1.5 cm few millimeters deep to bone identified. Unsure if this is been to be completely healed prior and has since opened or if has been healing at this level. No foul odor no drainage was unsure local wound care until healed Bilateral heels soft without signs of injury Treatment plan: Please apply skin protectant and optifoam to sacral area. Change every 3 days Please apply skin protectant and optifoam to right ischial area. Change every 3 days Please apply Thera honey infused gauze to small opening in the left ischial wound bed followed by skin protectant in the periwound and up to foam. Change daily as needed saturation Offload pressure from heels with pillow Air soft mattress Turn every 2 hours Nutritional optimization We will monitor follow with recommendations (2) Sepsis Assessment & Plan: IV abx as per ID trend labs wounds unlikely etiology likely respiratory DAILY ESTIMATED NEEDS: Needs based on Critical care, wounds/ 60kg adj 22-28 kcals/kg 5603-8562 total kcals 1.25-2 g protein/kg 75-120 g total protein 25-30 mL/kg 7198-3853 total fluid mLs NUTRITION DIAGNOSIS: * Swallowing difficulty R/T respiratory status as evidenced by trach/vent dep, PEG dep. * Increased kcal/prot needs R/T wound healing as evidenced by BL buttocks and sacral wound photos, pending evaluation. CURRENT TF:Glucerna 1.5 @ 30ml/hr x 24 hrs ENTERAL NUTRITION RECOMMENDATIONS: Jevity 1.2 @ 55ml/hr x 24 hrs + Prosource 1pkt QD to provide 1320ml, 1584kcal, 73g +11g prot, 1060ml free water - Rec to continue DIRECTOR OF SECURITY TF of Jevity 1.2 - Rec Jevity 1.2 @ goal rate of 55ml/hr x 24 hrs - Add Prosource 1pkt daily to meet protein needs - Flush per MD/ HOB over 30 degrees ADDITIONAL RECOMMENDATIONS: 1) Re-calibrated bedscale wt for accurate CBW 2) Wound healing: Add Vit C 250mg QD + Cristian 1pkt BID : f/up w/ WC eval 3) Monitor lytes, replete as needed (3) Feeding by G-tube Assessment & Plan: cont tube feeds as tolerated (4) Chronic vegetative state Assessment & Plan: incontinence of urine and stool. can soil dressings. nurses doing great job with monitoring and changing prn (5) Leukocytosis Walter Madera Jan 27, 2019 13:01
--- NOTE | 2019-01-27 14:37 | NUR ---
RD ASSESSMENT & RECOMMENDATIONS SEE CARE ACTIVITY FOR COMPLETE ASSESSMENT DAILY ESTIMATED NEEDS: Needs based on Critical care, wounds/ 60kg adj 22-28 kcals/kg 9210-2187 total kcals 1.25-2 g protein/kg 75-120 g total protein 25-30 mL/kg 2536-6881 total fluid mLs NUTRITION DIAGNOSIS: * Swallowing difficulty R/T respiratory status as evidenced by trach/vent dep, PEG dep. * Increased kcal/prot needs R/T wound healing as evidenced by BL buttocks and sacral wound photos, refer to WC eval. (CURRENT TF: Glucerna 1.5 @ 30ml/hr x 24 hrs) ENTERAL NUTRITION RECOMMENDATIONS: Jevity 1.2 @ 55ml/hr x 24 hrs + Prosource 1pkt QD to provide 1320ml, 1584kcal, 73g +11g prot, 1060ml free water - Rec to continue RESERVATIONS AND TICKETING AGENT TF of Jevity 1.2 - Rec Jevity 1.2 @ goal rate of 55ml/hr x 24 hrs - Add Prosource 1pkt daily to meet protein needs - Flush per MD/ HOB over 30 degrees ADDITIONAL RECOMMENDATIONS: 1) Re-calibrated bedscale wt for accurate CBW 2) Wound healing: Add Vit C 250mg BID + Cristian 1pkt BID F/up w/ WC eval-> Pt w/ full thickness resolving wound TF rec at goal provides 100% RDI's 3) Monitor lytes, replete as needed .
[2019-01-27] MEDS ORDERED: NS 275ml ONE (15:14)
[2019-01-27 16:00] VITALS: BP 118/57
--- NOTE | 2019-01-27 16:59 | Cardiology Report ---
APPROVED REPORT EKG Measurement Heart [id number] Normal sinus rhythm with sinus arrhythmia Normal ECG
--- NOTE | 2019-01-27 19:25 | NUR ---
HAND-OFF: Report given to .MATTHEW PAEZ.
--- NOTE | 2019-01-27 19:30 | NUR ---
NURSE NOTES: Received report from Jovani Marcano RN. Pt is stable, SR, obtunded. Daughter Chika at bedside. G tube is patent, no residuals noted, flushed with water, tolerated well. G tube running glucerna 1.5 Tenzin @30 ml/hr. Trach settings checked: Shiley 6,AC 14, TV 400, FiO2 40%, and PEEP 5. Call light within reach, bed in lowest position, bed alarm armed. Pt has TLC in right femoral, PIV right Forearm 22g, L hand 20g all patent, asymptomatic, and intact, flushed with NS per MD order. Pt appears to be resting comfortably at this time, no signs or symptoms pain or distress noted. Will continue to monitor closely.
[2019-01-27 20:00] VITALS: BP 117/58
[2019-01-27] MEDS: Dyna-Hex 2% Top Sol 2oz TOPIC SCH (21:10)
[2019-01-28] VITALS: BP 123/59
[2019-01-28] MEDS: Albuterol/Ipratropium 3ml neb HHN SCH ×7 (00:07→23:17)
--- NOTE | 2019-01-28 02:20 | NUR ---
NURSE NOTES: Pt appears to be resting comfortably, no signs or symptoms of pain or distress noted at this time. Pt is stable, SR, and obtunded. Will continue to monitor closely.
--- NOTE | 2019-01-28 02:30 | Progress Note ---
DATE: 01/27/2019 CARDIOLOGY PROGRESS NOTE SUBJECTIVE: The patient remains on ventilator support. Monitored rhythm, sinus. OBJECTIVE: VITAL SIGNS: Blood pressure 117/58, heart rate 92, and respiratory rate 26. HEENT: With thin secretions. LUNGS: Bilateral breath sounds. HEART: Regular rhythm and rate. Normal S1, S2. ABDOMEN: Soft. G-tube intact. EXTREMITIES: No edema. LABORATORY DATA: White count 8.3 and hemoglobin 8.7. Potassium 3.7. BUN 14 and creatinine 1.1. Albumin 2.6. IMPRESSION: 1. No signs of acute congestive heart failure. 2. Respiratory failure on ventilator support via trach. 3. Stable cardiac rhythm. 4. Healthcare-acquired pneumonia. PLAN: 1. Respiratory support. 2. Antimicrobials. 3. Monitor volume status and cardiorenal function. 4. DVT and stress ulcer prophylaxis. 5. No additional anti-failure therapy or diuresis is presently required. Bg Hagen M.D. DR: DAMEON JOB#: [id number] CC:
[2019-01-28 04:00] VITALS: BP 106/61
[2019-01-28 04:41] LABS: BASOPHILS % (AUTO) 0.6 % (0.0-2.0); EOSINOPHILS % (AUTO) 4.9 % (0.0-3.0); HEMATOCRIT 27.3 % (37.0-47.0); HEMOGLOBIN 8.5 G/DL (12.0-16.0); LYMPHOCYTES % (AUTO) 25.5 % (20.0-45.0); MEAN CORPUSCULAR VOLUME 86 FL (80-99); MONOCYTES % (AUTO) 5.9 % (1.0-10.0); NEUTROPHILS % (AUTO) 63.1 % (45.0-75.0); PLATELET COUNT 215 K/UL (150-450); RED BLOOD COUNT 3.18 M/UL (4.20-5.40); RED CELL DISTRIBUTION WIDTH 17.6 % (11.6-14.8); WHITE BLOOD COUNT 7.9 K/UL (4.8-10.8)
[2019-01-28 04:51] LABS: ANION GAP 9 mmol/L (5-15); BLOOD UREA NITROGEN 12 mg/dL (7-18); CALCIUM 9.1 MG/DL (8.5-10.1); CARBON DIOXIDE 26 MMOL/L (21-32); CHLORIDE 107 MMOL/L (98-107); POTASSIUM 3.8 MMOL/L (3.5-5.1); SODIUM 142 MMOL/L (136-145)
[2019-01-28] MEDS: Piperacillin/Tazobactam 3.375 GM in NS 110 ML IVPB SCH ×3 (05:29→22:05)
--- NOTE | 2019-01-28 07:08 | NUR ---
HAND-OFF: Report given to Radha Sánchez RN. Pt is stable, SR, and appears to be resting comfortably. No signs or symptoms of pain or distress at this time.
--- NOTE | 2019-01-28 07:09 | NUR ---
NURSE NOTES: Report received from JEANNINE Lopez. Pt is sleeping in bed. Pt opens eyes to light touch. Extremities contacted. Not able to follow commands and non-verbal. 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 Trach to vent. AC 14, Tv 450, FiO2 40%, P5. O2 sat 98-100%. Moderate amount of oral secretion noted and suctioned pt. G-tube in place receiving Glucerna 1.5 at 30cc/hr. No residual noted. IV to right FA 22 left hand 20 and right femoral TLC patent and asymptomatic. Bed in lowest position. Side rails up x3. Turned and repositioned pt. Oral care done. Will resume plan of care.
[2019-01-28 08:01] VITALS: BP 126/65
--- NOTE | 2019-01-28 08:33 | General Progress Note ---
Assessment/Plan Problem List: (1) Seizure ICD Codes: R56.9 - Unspecified convulsions SNOMED: 76525550 (2) Anemia ICD Codes: D64.9 - Anemia, unspecified SNOMED: 792746544 Qualifiers: Qualified Codes: D64.9 - Anemia, unspecified (3) Sepsis ICD Codes: A41.9 - Sepsis, unspecified organism SNOMED: 96205409, 413946201 Qualifiers: Qualified Codes: A41.9 - Sepsis, unspecified organism (4) Respiratory failure with hypoxia ICD Codes: J96.91 - Respiratory failure, unspecified with hypoxia SNOMED: 74234163651370953 Qualifiers: Qualified Codes: J96.21 - Acute and chronic respiratory failure with hypoxia (5) HCAP (healthcare-associated pneumonia) ICD Codes: J18.9 - Pneumonia, unspecified organism SNOMED: 622744997, 411327276 (6) Sacral decubitus ulcer ICD Codes: L89.159 - Pressure ulcer of sacral region, unspecified stage SNOMED: 219269625 (7) HTN (hypertension) ICD Codes: I10 - Essential (primary) hypertension SNOMED: 40763668 (8) Chronic vegetative state ICD Codes: R40.3 - Persistent vegetative state SNOMED: 91018746 (9) Chronic respiratory failure ICD Codes: J96.10 - Chronic respiratory failure, unspecified whether with hypoxia or hypercapnia SNOMED: 62911790 (10) Limited mobility ICD Codes: Z74.09 - Other reduced mobility SNOMED: 2014899 Status: stable, progressing Assessment/Plan: cont vent support resp rx suctioning as needed wean per pulm gt feeds monitor for aspiration iv abx per id follow up cultures monitor cxr- not improved(still with infiltrate) check iron panel/stool ob repeat cbc may need transfusion Subjective ROS Limited/Unobtainable: No Constitutional: Reports: malaise, weakness Allergies: Coded Allergies: CODEINE (Verified Allergy, Unknown, HIVES, 09/15/09) All Systems: reviewed and negative except above Subjective no events. on the vent. poorly responsive. tolerating feeds. less congested. on 2 iv abx and inhaled colistin. still with left sided infiltrate. sputum cultures pending. no vomiting ID appreciated. Objective Last 24 Hour Vital Signs Date Time Temp Pulse Resp B/P (MAP) Pulse Ox O2 Delivery O2 Flow Rate FiO2 01/28/19 08:01 98.1 82 20 126/65 (85) 100 01/28/19 07:09 72 15 100 Mechanical Ventilator 30 66 14 30 01/28/19 05:39 73 15 30 01/28/19 04:00 74 01/28/19 04:00 30 01/28/19 04:00 Mechanical Ventilator 01/28/19 04:00 98.7 74 23 106/61 (76) 100 01/28/19 03:23 75 14 100 Mechanical Ventilator 30 76 14 30 01/28/19 01:15 73 14 30 01/28/19 00:07 73 14 100 Mechanical Ventilator 30 76 14 30 01/28/19 00:00 98.5 72 24 123/59 (80) 100 01/28/19 00:00 30 01/28/19 00:00 79 01/28/19 00:00 Mechanical Ventilator 01/27/19 20:49 88 16 30 01/27/19 20:00 97 01/27/19 20:00 Mechanical Ventilator 01/27/19 20:00 30 01/27/19 20:00 98.2 82 26 117/58 (77) 100 01/27/19 19:04 80 16 100 Mechanical Ventilator 30 81 16 30 01/27/19 17:27 87 21 30 01/27/19 16:00 Mechanical Ventilator 01/27/19 16:00 30 01/27/19 16:00 97.7 86 18 118/57 (77) 99 01/27/19 16:00 70 01/27/19 15:26 68 14 100 Mechanical Ventilator 30 68 14 30 01/27/19 13:16 77 16 30 01/27/19 12:00 Mechanical Ventilator 01/27/19 12:00 87 01/27/19 12:00 98.1 85 18 130/61 (84) 100 01/27/19 12:00 30 01/27/19 11:42 79 14 100 Mechanical Ventilator 30 75 14 30 01/27/19 10:04 69 116/62 01/27/19 09:04 69 14 30 Intake and Output 01/27/19 01/28/19 18:59 06:59 Intake Total 1169.916 ml 604.50 ml Output Total 150 ml 300 ml Balance 1019.916 ml 304.50 ml Free Water 250 ml 100 ml IV Total 559.916 ml 144.50 ml Tube Feeding 360 ml 360 ml Output Urine Total 150 ml 300 ml # Voids 3 # Bowel Movements 3 3 Laboratory Tests 01/27/19 09:00: Iron Level 34L, Vancomycin Level Trough 17.4H 01/28/19 03:25: White Blood Count 7.9, Red Blood Count 3.18L, Hemoglobin 8.5L, Hematocrit 27.3L , Mean Corpuscular Volume 86, Mean Corpuscular Hemoglobin 26.7L, Mean Corpuscular Hemoglobin Concent 31.1L, Red Cell Distribution Width 17.6H, Platelet Count 215, Mean Platelet Volume 5.5L, Neutrophils (%) (Auto) 63.1, Lymphocytes (%) (Auto) 25.5, Monocytes (%) (Auto) 5.9, Eosinophils (%) (Auto) 4.9H, Basophils (%) (Auto) 0.6, Sodium Level 142, Potassium Level 3.8, Chloride Level 107, Carbon Dioxide Level 26, Anion Gap 9, Blood Urea Nitrogen 12, Creatinine 1.0, Estimat Glomerular Filtration Rate , Glucose Level 99, Calcium Level 9.1 Height (Feet): 5 Height (Inches): 5.00 Weight (Pounds): 180 Objective General Appearance: WD/WN, confused Neck: supple Cardiovascular: normal rate, regular rhythm Respiratory/Chest: chest wall non-tender, rhonchi - bilaterally Abdomen: normal bowel sounds, non tender, soft, no organomegaly Edema: no edema noted Arm (L), no edema noted Arm (R), no edema noted Leg (L), no edema noted Leg (R), no edema noted Pedal (L), no edema noted Pedal (R), no edema noted Generalized Neurologic: disoriented, unresponsive, aphasia Irvin Beltrán MD Jan 28, 2019 08:33
[2019-01-28] MEDS: Ferrous Sulfate 300 MG/5 ML UDC GT SCH ×2 (08:38→17:15)
[2019-01-28] MEDS: levETIRAcetam 500mg/5ml Liquid GT SCH ×2 (08:39→20:59)
[2019-01-28] MEDS: Miralax 17gm pkt GT SCH (08:39)
[2019-01-28] MEDS: Ascorbic Acid 500mg tab ORAL SCH (08:39)
[2019-01-28] MEDS: Heparin 5000 units/ml inj SUBQ SCH ×2 (08:41→21:00)
--- NOTE | 2019-01-28 09:26 | NUR ---
NURSE NOTES: Asked Dr Beltrán to call daughter regarding ventilator. Dr Beltrán left a message to the daughter Chika.
[2019-01-28] MEDS: Vancomycin 1gm in D5W 275ml IVPB SCH (10:01)
--- NOTE | 2019-01-28 10:42 | NUR ---
NURSE NOTES: Camille reported that pt is positive for KPC A. Notified Dr Yang. No new orders.
--- NOTE | 2019-01-28 10:43 | Infectious Diseases Prog Note ---
Assessment/Plan Assessment/Plan antibiotics : vancomycin iv, zosyn, inhaled colistin A 1. gram negative pneumonia 2. respiratory failure 3. hypertension 4. CVA 5. dementia 6. sacral decubitus ulcer 7. rectal VRE colonization P 1. d/c vancomycin iv, inhaled colistin 2. continue zosyn 3. will follow up cultures Subjective ROS Limited/Unobtainable: Yes Allergies: Coded Allergies: CODEINE (Verified Allergy, Unknown, HIVES, 09/15/09) Objective Vital Signs Last 24 Hour Vital Signs Date Time Temp Pulse Resp B/P (MAP) Pulse Ox O2 Delivery O2 Flow Rate FiO2 01/28/19 10:35 80 15 100 Mechanical Ventilator 30 84 15 30 01/28/19 09:22 75 14 30 01/28/19 08:39 82 126/65 01/28/19 08:01 98.1 82 20 126/65 (85) 100 01/28/19 07:09 72 15 100 Mechanical Ventilator 30 66 14 30 01/28/19 05:39 73 15 30 01/28/19 04:00 74 01/28/19 04:00 30 01/28/19 04:00 Mechanical Ventilator 01/28/19 04:00 98.7 74 23 106/61 (76) 100 01/28/19 03:23 75 14 100 Mechanical Ventilator 30 76 14 30 01/28/19 01:15 73 14 30 01/28/19 00:07 73 14 100 Mechanical Ventilator 30 76 14 30 01/28/19 00:00 98.5 72 24 123/59 (80) 100 01/28/19 00:00 30 01/28/19 00:00 79 01/28/19 00:00 Mechanical Ventilator 01/27/19 20:49 88 16 30 01/27/19 20:00 97 01/27/19 20:00 Mechanical Ventilator 01/27/19 20:00 30 01/27/19 20:00 98.2 82 26 117/58 (77) 100 01/27/19 19:04 80 16 100 Mechanical Ventilator 30 81 16 30 01/27/19 17:27 87 21 30 01/27/19 16:00 Mechanical Ventilator 01/27/19 16:00 30 01/27/19 16:00 97.7 86 18 118/57 (77) 99 01/27/19 16:00 70 01/27/19 15:26 68 14 100 Mechanical Ventilator 30 68 14 30 01/27/19 13:16 77 16 30 01/27/19 12:00 Mechanical Ventilator 01/27/19 12:00 87 01/27/19 12:00 98.1 85 18 130/61 (84) 100 01/27/19 12:00 30 01/27/19 11:42 79 14 100 Mechanical Ventilator 30 75 14 30 Height (Feet): 5 Height (Inches): 5.00 Weight (Pounds): 180 HEENT: status post trach Respiratory/Chest: lungs clear Cardiovascular: normal rate, regular rhythm, no gallop/murmur Abdomen: soft, non tender, other - GT Extremities: no edema Microbiology Date/Time Source Procedure Growth Status 01/26/19 12:49 Sputum Gram Stain - Final Resulted 01/26/19 12:49 Sputum Culture - Preliminary Gram Negative Bacillus 1 Resulted Laboratory Tests Test 01/28/19 03:25 White Blood Count 7.9 K/UL (4.8-10.8) Red Blood Count 3.18 M/UL (4.20-5.40) L Hemoglobin 8.5 G/DL (12.0-16.0) L Hematocrit 27.3 % (37.0-47.0) L Mean Corpuscular Volume 86 FL (80-99) Mean Corpuscular Hemoglobin 26.7 PG (27.0-31.0) L Mean Corpuscular Hemoglobin Concent 31.1 G/DL (32.0-36.0) L Red Cell Distribution Width 17.6 % (11.6-14.8) H Platelet Count 215 K/UL (150-450) Mean Platelet Volume 5.5 FL (6.5-10.1) L Neutrophils (%) (Auto) 63.1 % (45.0-75.0) Lymphocytes (%) (Auto) 25.5 % (20.0-45.0) Monocytes (%) (Auto) 5.9 % (1.0-10.0) Eosinophils (%) (Auto) 4.9 % (0.0-3.0) H Basophils (%) (Auto) 0.6 % (0.0-2.0) Sodium Level 142 MMOL/L (136-145) Potassium Level 3.8 MMOL/L (3.5-5.1) Chloride Level 107 MMOL/L (98-107) Carbon Dioxide Level 26 MMOL/L (21-32) Anion Gap 9 mmol/L (5-15) Blood Urea Nitrogen 12 mg/dL (7-18) Creatinine 1.0 MG/DL (0.55-1.30) Estimat Glomerular Filtration Rate mL/min (>60) Glucose Level 99 MG/DL (74-106) Calcium Level 9.1 MG/DL (8.5-10.1) Current Medications Medications (Trade) Dose Ordered Sig/Maicol Route PRN Reason Start Time Stop Time Status Last Admin Dose Admin Albuterol/ Ipratropium (Albuterol/ Ipratropium) 3 ml Q4HRT HHN 01/24/19 15:00 01/29/19 14:59 01/28/19 10:35 Amlodipine Besylate (Norvasc) 10 mg DAILY GT 01/24/19 09:00 02/23/19 08:59 01/28/19 08:39 Ascorbic Acid (Vitamin C) 250 mg DAILY ORAL 01/25/19 09:00 02/24/19 08:59 01/28/19 08:39 Bisacodyl (Dulcolax) 10 mg PRN PRN RECTAL Constipation 01/24/19 05:30 02/23/19 05:29 Chlorhexidine Gluconate (Cesilia-Hex 2%) 1 applic DAILY@2000 TOPIC 01/25/19 20:00 02/24/19 19:59 01/27/19 21:10 Docusate Sodium (Colace) 100 mg DAILY PRN GT Constipation 01/24/19 05:45 02/23/19 05:29 Famotidine (Pepcid) 20 mg DAILY GT 01/24/19 09:00 02/23/19 08:59 01/28/19 08:39 Ferrous Sulfate (Feosol) 300 mg BID GT 01/24/19 09:00 02/23/19 08:59 01/28/19 08:38 Folic Acid (Folate) 1 mg DAILY GT 01/24/19 09:00 02/23/19 08:59 01/28/19 08:40 Heparin Sodium (Porcine) (Heparin 5000 units/ml) 5,000 units EVERY 12 HOURS SUBQ 01/24/19 09:00 02/23/19 08:59 01/28/19 08:41 Iron Sucrose 100 mg/Sodium Chloride 60 ml @ 240 mls/hr BEDTIME IV 01/28/19 21:00 02/01/19 21:14 Levetiracetam (Keppra) 750 mg Q12HR GT 01/28/19 21:00 02/23/19 08:59 Ondansetron HCl (Zofran) 4 mg Q6H PRN GT Nausea & Vomiting 01/24/19 05:30 02/23/19 05:29 Piperacillin Sod/ Tazobactam Sod 3.375 gm/Sodium Chloride 110 ml @ 27.5 mls/hr EVERY 8 HOURS IVPB 01/24/19 06:00 01/31/19 05:59 01/28/19 05:29 Polyethylene Glycol (Miralax) 17 gm DAILY GT 01/24/19 09:00 02/23/19 08:59 01/28/19 08:39 Vancomycin HCl (Vanco rx to dose) 1 ea DAILY MISC 01/24/19 09:00 02/23/19 08:59 01/28/19 08:41 Vancomycin HCl 1 gm/Dextrose 275 ml @ 183.708 mls/hr Q24H IVPB 01/24/19 10:00 01/30/19 09:59 01/28/19 10:01 Zolpidem Tartrate (Ambien) 5 mg BEDTIME PRN GT Insomnia 01/24/19 05:30 01/31/19 05:29 Geovany Yang MD Jan 28, 2019 10:43
[2019-01-28 12:00] VITALS: BP 103/54
--- NOTE | 2019-01-28 14:52 | NUR ---
NURSE NOTES: Cleaned pt for 1 moderate amount of brown BM and repositioned pt. No acute distress noted. VSS. Will continue to monitor.
[2019-01-28 15:24] VITALS: BP 105/76
--- NOTE | 2019-01-28 15:56 | Pulmonology Progress Note ---
Assessment/Plan Assessment/Plan Pulmonary Progress Note HPI This an 83-year-old female with history of tracheostomy, VDRF, feeding tube, admitted with Pneumonia, respiratory distress. She had increased work of breathing and had to be placed back on the ventilator. No reported fever chills but no nausea or vomiting. History is limited on this patient because she is nonverbal. Past Medical History: VDRF, Trach, G tube, Hypertension, Cardiac disease, Dementia, Previous CVA, TIA, Seizure disorder, previous cancer No new issues Impression: Sepsis syncrome Pneumonia VDRF, Trach, G tube, Hypertension, Cardiac disease, Dementia, Previous CVA, Seizure disorder, Respiratory failure with hypoxia Anemia Sacral ulcer Plan IV Antibiotics IVF maintain SNF meds vent support as is and try to wean HHN O2 RX Monitor labs PUD and DVT prophylaxis Patient is a DNR. No CPR. agree with transfusion impression, plan, and exam edited and reviewed in detail care discussed with RN Subjective ROS Limited/Unobtainable: Yes Allergies: Coded Allergies: CODEINE (Verified Allergy, Unknown, HIVES, 09/15/09) Subjective currently on the ventilator some congestion supportive care noted Objective Vital Signs Noted Objective WDWN NAD contracted on vent reduced breath sounds bilaterally without rhonchi or wheeze [id number] without MRG NABS nontender no HSM no CC minimal nonfocal nonverbal trach and gt Laboratory Tests 01/27/19 03:45: White Blood Count 8.3, Red Blood Count 3.17L, Hemoglobin 8.7L, Hematocrit 27.4L , Mean Corpuscular Volume 86, Mean Corpuscular Hemoglobin 27.6, Mean Corpuscular Hemoglobin Concent 31.9L, Red Cell Distribution Width 16.9H, Platelet Count 220, Mean Platelet Volume 5.6L, Neutrophils (%) (Auto) 54.6, Lymphocytes (%) (Auto) 33.0, Monocytes (%) (Auto) 6.5, Eosinophils (%) (Auto) 5.0H, Basophils (%) (Auto) 0.8, Sodium Level 144, Potassium Level 3.7, Chloride Level 107, Carbon Dioxide Level 30, Anion Gap 8, Blood Urea Nitrogen 14, Creatinine 1.1, Estimat Glomerular Filtration Rate , Glucose Level 96, Calcium Level 8.8, Total Bilirubin 0.3, Aspartate Amino Transf (AST/SGOT) 35, Alanine Aminotransferase (ALT/SGPT) 54, Alkaline Phosphatase 155H, Total Protein 7.7, Albumin 2.6L, Globulin 5.1, Albumin/Globulin Ratio 0.5L 01/27/19 09:00: Iron Level [Pending], Vancomycin Level Trough [Pending] Current Medications Medications (Trade) Dose Ordered Sig/Maicol Route PRN Reason Start Time Stop Time Status Last Admin Dose Admin Albuterol/ Ipratropium (Albuterol/ Ipratropium) 3 ml Q4HRT HHN 01/24/19 15:00 01/29/19 14:59 01/27/19 07:05 Amlodipine Besylate (Norvasc) 10 mg DAILY GT 01/24/19 09:00 02/23/19 08:59 01/26/19 08:15 Ascorbic Acid (Vitamin C) 250 mg DAILY ORAL 01/25/19 09:00 02/24/19 08:59 01/26/19 08:15 Bisacodyl (Dulcolax) 10 mg PRN PRN RECTAL Constipation 01/24/19 05:30 02/23/19 05:29 Chlorhexidine Gluconate (Cesilia-Hex 2%) 1 applic DAILY@2000 TOPIC 01/25/19 20:00 02/24/19 19:59 01/26/19 20:25 Colistimethate Sodium (Colistin *inhalation use only*) 150 mg Q12H PRN INH Shortness of breath 01/24/19 05:30 01/31/19 05:29 Docusate Sodium (Colace) 100 mg DAILY PRN GT Constipation 01/24/19 05:45 02/23/19 05:29 Famotidine (Pepcid) 20 mg DAILY GT 01/24/19 09:00 02/23/19 08:59 01/26/19 08:15 Ferrous Sulfate (Feosol) 300 mg BID GT 01/24/19 09:00 02/23/19 08:59 01/26/19 17:12 Folic Acid (Folate) 1 mg DAILY GT 01/24/19 09:00 02/23/19 08:59 01/26/19 08:15 Heparin Sodium (Porcine) (Heparin 5000 units/ml) 5,000 units EVERY 12 HOURS SUBQ 01/24/19 09:00 02/23/19 08:59 01/26/19 20:26 Levetiracetam (Keppra) 750 mg BID GT 01/24/19 09:00 02/23/19 08:59 01/26/19 17:12 Ondansetron HCl (Zofran) 4 mg Q6H PRN GT Nausea & Vomiting 01/24/19 05:30 02/23/19 05:29 Piperacillin Sod/ Tazobactam Sod 3.375 gm/Sodium Chloride 110 ml @ 27.5 mls/hr EVERY 8 HOURS IVPB 01/24/19 06:00 01/29/19 05:59 01/27/19 05:51 Polyethylene Glycol (Miralax) 17 gm DAILY GT 01/24/19 09:00 02/23/19 08:59 01/25/19 08:57 Vancomycin HCl (Vanco rx to dose) 1 ea DAILY MISC 01/24/19 09:00 02/23/19 08:59 01/26/19 09:06 Vancomycin HCl 1 gm/Dextrose 275 ml @ 183.708 mls/hr Q24H IVPB 01/24/19 10:00 01/29/19 09:59 01/26/19 09:06 Zolpidem Tartrate (Ambien) 5 mg BEDTIME PRN GT Insomnia 01/24/19 05:30 01/31/19 05:29 Subjective ROS Limited/Unobtainable: No Allergies: Coded Allergies: CODEINE (Verified Allergy, Unknown, HIVES, 09/15/09) Objective Last 24 Hour Vital Signs Date Time Temp Pulse Resp B/P (MAP) Pulse Ox O2 Delivery O2 Flow Rate FiO2 01/28/19 15:24 98.6 77 14 105/76 (86) 100 01/28/19 14:57 78 16 100 Mechanical Ventilator 30 76 15 30 01/28/19 13:25 72 17 100 Mechanical Ventilator 30 84 15 30 01/28/19 12:00 97.5 77 15 103/54 (70) 100 01/28/19 12:00 Mechanical Ventilator 01/28/19 12:00 30 01/28/19 11:43 77 01/28/19 10:35 80 15 100 Mechanical Ventilator 30 84 15 30 01/28/19 09:22 75 14 30 01/28/19 08:39 82 126/65 01/28/19 08:01 98.1 82 20 126/65 (85) 100 01/28/19 08:00 30 01/28/19 08:00 Mechanical Ventilator 01/28/19 07:45 73 01/28/19 07:09 72 15 100 Mechanical Ventilator 30 66 14 30 01/28/19 05:39 73 15 30 01/28/19 04:00 74 01/28/19 04:00 30 01/28/19 04:00 Mechanical Ventilator 01/28/19 04:00 98.7 74 23 106/61 (76) 100 01/28/19 03:23 75 14 100 Mechanical Ventilator 30 76 14 30 01/28/19 01:15 73 14 30 01/28/19 00:07 73 14 100 Mechanical Ventilator 30 76 14 30 01/28/19 00:00 98.5 72 24 123/59 (80) 100 01/28/19 00:00 30 01/28/19 00:00 79 01/28/19 00:00 Mechanical Ventilator 01/27/19 20:49 88 16 30 01/27/19 20:00 97 01/27/19 20:00 Mechanical Ventilator 01/27/19 20:00 30 01/27/19 20:00 98.2 82 26 117/58 (77) 100 01/27/19 19:04 80 16 100 Mechanical Ventilator 30 81 16 30 01/27/19 17:27 87 21 30 01/27/19 16:00 Mechanical Ventilator 01/27/19 16:00 30 01/27/19 16:00 97.7 86 18 118/57 (77) 99 01/27/19 16:00 70 Intake and Output 01/27/19 01/28/19 19:00 07:00 Intake Total 1142.416 ml 602.00 ml Output Total 150 ml 300 ml Balance 992.416 ml 302.00 ml Free Water 250 ml 100 ml IV Total 532.416 ml 172.00 ml Tube Feeding 360 ml 330 ml Output Urine Total 150 ml 300 ml # Voids 3 # Bowel Movements 3 3 Microbiology Date/Time Source Procedure Growth Status 01/26/19 12:49 Sputum Gram Stain - Final Resulted 01/26/19 12:49 Sputum Culture - Preliminary Gram Negative Bacillus 1 Resulted Laboratory Tests 01/28/19 03:25: White Blood Count 7.9, Red Blood Count 3.18L, Hemoglobin 8.5L, Hematocrit 27.3L , Mean Corpuscular Volume 86, Mean Corpuscular Hemoglobin 26.7L, Mean Corpuscular Hemoglobin Concent 31.1L, Red Cell Distribution Width 17.6H, Platelet Count 215, Mean Platelet Volume 5.5L, Neutrophils (%) (Auto) 63.1, Lymphocytes (%) (Auto) 25.5, Monocytes (%) (Auto) 5.9, Eosinophils (%) (Auto) 4.9H, Basophils (%) (Auto) 0.6, Sodium Level 142, Potassium Level 3.8, Chloride Level 107, Carbon Dioxide Level 26, Anion Gap 9, Blood Urea Nitrogen 12, Creatinine 1.0, Estimat Glomerular Filtration Rate , Glucose Level 99, Calcium Level 9.1 Current Medications Medications (Trade) Dose Ordered Sig/Maicol Route PRN Reason Start Time Stop Time Status Last Admin Dose Admin Albuterol/ Ipratropium (Albuterol/ Ipratropium) 3 ml Q4HRT HHN 01/24/19 15:00 01/29/19 14:59 01/28/19 14:57 Amlodipine Besylate (Norvasc) 10 mg DAILY GT 01/24/19 09:00 02/23/19 08:59 01/28/19 08:39 Ascorbic Acid (Vitamin C) 250 mg DAILY ORAL 01/25/19 09:00 02/24/19 08:59 01/28/19 08:39 Bisacodyl (Dulcolax) 10 mg PRN PRN RECTAL Constipation 01/24/19 05:30 02/23/19 05:29 Chlorhexidine Gluconate (Cesilia-Hex 2%) 1 applic DAILY@2000 TOPIC 01/25/19 20:00 02/24/19 19:59 01/27/19 21:10 Docusate Sodium (Colace) 100 mg DAILY PRN GT Constipation 01/24/19 05:45 02/23/19 05:29 Famotidine (Pepcid) 20 mg DAILY GT 01/24/19 09:00 02/23/19 08:59 01/28/19 08:39 Ferrous Sulfate (Feosol) 300 mg BID GT 01/24/19 09:00 02/23/19 08:59 01/28/19 08:38 Folic Acid (Folate) 1 mg DAILY GT 01/24/19 09:00 02/23/19 08:59 01/28/19 08:40 Heparin Sodium (Porcine) (Heparin 5000 units/ml) 5,000 units EVERY 12 HOURS SUBQ 01/24/19 09:00 02/23/19 08:59 01/28/19 08:41 Iron Sucrose 100 mg/Sodium Chloride 60 ml @ 240 mls/hr BEDTIME IV 01/28/19 21:00 02/01/19 21:14 Levetiracetam (Keppra) 750 mg Q12HR GT 01/28/19 21:00 02/23/19 08:59 Ondansetron HCl (Zofran) 4 mg Q6H PRN GT Nausea & Vomiting 01/24/19 05:30 02/23/19 05:29 Piperacillin Sod/ Tazobactam Sod 3.375 gm/Sodium Chloride 110 ml @ 27.5 mls/hr EVERY 8 HOURS IVPB 01/24/19 06:00 01/31/19 05:59 01/28/19 15:00 Polyethylene Glycol (Miralax) 17 gm DAILY GT 01/24/19 09:00 02/23/19 08:59 01/28/19 08:39 Zolpidem Tartrate (Ambien) 5 mg BEDTIME PRN GT Insomnia 01/24/19 05:30 01/31/19 05:29 Bg Moffett MD Jan 28, 2019 15:56
--- NOTE | 2019-01-28 19:17 | NUR ---
HAND-OFF: Report given to JEANNINE Haro.
--- NOTE | 2019-01-28 19:23 | NUR ---
NURSE NOTES: Report received from Radha Sánchez RN. Pt is resting in bed. Extremities contacted. Not able to follow commands and non-verbal. Sinus rhythm on swabber. Trach to vent. AC 14, Tv 450, FiO2 40%, P5. O2 sat 98-100%. Moderate amount of oral secretion noted, suction present at bedside. pt. G-tube in place receiving Glucerna 1.5 at 30cc/hr. IV to right FA 22 left hand 20 patent, asymptomatic and dressing in tact. Bed in lowest position, side rails up x3, call light within reach, bed alarm activated and side rails padded per protocol. Will continue plan of care.
[2019-01-28 20:00] VITALS: BP 133/67
--- NOTE | 2019-01-28 20:23 | Surgery Progress Note ---
Surgery Progress Note Subjective Additional Comments Patient seen and examined bedside. Labs improving. H&H trending down. Repeat CBC pending. Overall ill-appearing. Objective Last 24 Hour Vital Signs Date Time Temp Pulse Resp B/P (MAP) Pulse Ox O2 Delivery O2 Flow Rate FiO2 01/28/19 20:00 98.4 78 14 133/67 (89) 100 01/28/19 19:09 82 16 100 Mechanical Ventilator 30 84 16 30 01/28/19 17:02 75 14 100 Mechanical Ventilator 30 76 15 30 01/28/19 16:00 Mechanical Ventilator 01/28/19 16:00 30 01/28/19 15:51 76 01/28/19 15:24 98.6 77 14 105/76 (86) 100 01/28/19 14:57 78 16 100 Mechanical Ventilator 30 76 15 30 01/28/19 13:25 72 17 100 Mechanical Ventilator 30 84 15 30 01/28/19 12:00 97.5 77 15 103/54 (70) 100 01/28/19 12:00 Mechanical Ventilator 01/28/19 12:00 30 01/28/19 11:43 77 01/28/19 10:35 80 15 100 Mechanical Ventilator 30 84 15 30 01/28/19 09:22 75 14 30 01/28/19 08:39 82 126/65 01/28/19 08:01 98.1 82 20 126/65 (85) 100 01/28/19 08:00 30 01/28/19 08:00 Mechanical Ventilator 01/28/19 07:45 73 01/28/19 07:09 72 15 100 Mechanical Ventilator 30 66 14 30 01/28/19 05:39 73 15 30 01/28/19 04:00 74 01/28/19 04:00 30 01/28/19 04:00 Mechanical Ventilator 01/28/19 04:00 98.7 74 23 106/61 (76) 100 01/28/19 03:23 75 14 100 Mechanical Ventilator 30 76 14 30 01/28/19 01:15 73 14 30 01/28/19 00:07 73 14 100 Mechanical Ventilator 30 76 14 30 01/28/19 00:00 98.5 72 24 123/59 (80) 100 01/28/19 00:00 30 01/28/19 00:00 79 01/28/19 00:00 Mechanical Ventilator 01/27/19 20:49 88 16 30 I&O Intake and Output 01/27/19 01/28/19 19:00 07:00 Intake Total 1142.416 ml 632.00 ml Output Total 150 ml 300 ml Balance 992.416 ml 332.00 ml Free Water 250 ml 100 ml IV Total 532.416 ml 172.00 ml Tube Feeding 360 ml 360 ml Output Urine Total 150 ml 300 ml # Voids 3 # Bowel Movements 3 3 Dressing: saturated Wound: other Drains: other Cardiovascular: RSR Respiratory: decreased breath sounds Abdomen: soft, present bowel sounds, non-distended Extremities: no tenderness, no cyanosis, other Laboratory Tests Test 01/28/19 03:25 White Blood Count 7.9 K/UL (4.8-10.8) Red Blood Count 3.18 M/UL (4.20-5.40) L Hemoglobin 8.5 G/DL (12.0-16.0) L Hematocrit 27.3 % (37.0-47.0) L Mean Corpuscular Volume 86 FL (80-99) Mean Corpuscular Hemoglobin 26.7 PG (27.0-31.0) L Mean Corpuscular Hemoglobin Concent 31.1 G/DL (32.0-36.0) L Red Cell Distribution Width 17.6 % (11.6-14.8) H Platelet Count 215 K/UL (150-450) Mean Platelet Volume 5.5 FL (6.5-10.1) L Neutrophils (%) (Auto) 63.1 % (45.0-75.0) Lymphocytes (%) (Auto) 25.5 % (20.0-45.0) Monocytes (%) (Auto) 5.9 % (1.0-10.0) Eosinophils (%) (Auto) 4.9 % (0.0-3.0) H Basophils (%) (Auto) 0.6 % (0.0-2.0) Sodium Level 142 MMOL/L (136-145) Potassium Level 3.8 MMOL/L (3.5-5.1) Chloride Level 107 MMOL/L (98-107) Carbon Dioxide Level 26 MMOL/L (21-32) Anion Gap 9 mmol/L (5-15) Blood Urea Nitrogen 12 mg/dL (7-18) Creatinine 1.0 MG/DL (0.55-1.30) Estimat Glomerular Filtration Rate mL/min (>60) Glucose Level 99 MG/DL (74-106) Calcium Level 9.1 MG/DL (8.5-10.1) Plan Problems: (1) Sacral decubitus ulcer Assessment & Plan: This is a 83-year-old female with multiple medical committees that is currently admitted for medical care and management and identified to have multiple wounds requiring care. On admission patient noted to have a resolved sacral decubitus ulcer. Has had prior care and is well-healed at this time. Will ensure it does not open up again. Patient has a right ischial decubitus ulcer that is resolved. Scar intact and well formed. Will monitor to ensure it does not open up again. Patient has a left ischial decubitus ulcer that can be identified to be stage IV with palpable bone that has been resolving as noted by the periwound tissue and scar but open area approximately 1 cm x 1.5 cm few millimeters deep to bone identified. Unsure if this is been to be completely healed prior and has since opened or if has been healing at this level. No foul odor no drainage was unsure local wound care until healed Bilateral heels soft without signs of injury Treatment plan: Please apply skin protectant and optifoam to sacral area. Change every 3 days Please apply skin protectant and optifoam to right ischial area. Change every 3 days Please apply Thera honey infused gauze to small opening in the left ischial wound bed followed by skin protectant in the periwound and up to foam. Change daily as needed saturation Offload pressure from heels with pillow Air soft mattress Turn every 2 hours Nutritional optimization We will monitor follow with recommendations (2) Sepsis Assessment & Plan: IV abx as per ID trend labs wounds unlikely etiology likely respiratory DAILY ESTIMATED NEEDS: Needs based on Critical care, wounds/ 60kg adj 22-28 kcals/kg 5472-6296 total kcals 1.25-2 g protein/kg 75-120 g total protein 25-30 mL/kg 2236-9431 total fluid mLs NUTRITION DIAGNOSIS: * Swallowing difficulty R/T respiratory status as evidenced by trach/vent dep, PEG dep. * Increased kcal/prot needs R/T wound healing as evidenced by BL buttocks and sacral wound photos, pending evaluation. CURRENT TF:Glucerna 1.5 @ 30ml/hr x 24 hrs ENTERAL NUTRITION RECOMMENDATIONS: Jevity 1.2 @ 55ml/hr x 24 hrs + Prosource 1pkt QD to provide 1320ml, 1584kcal, 73g +11g prot, 1060ml free water - Rec to continue [employer] TF of Jevity 1.2 - Rec Jevity 1.2 @ goal rate of 55ml/hr x 24 hrs - Add Prosource 1pkt daily to meet protein needs - Flush per MD/ HOB over 30 degrees ADDITIONAL RECOMMENDATIONS: 1) Re-calibrated bedscale wt for accurate CBW 2) Wound healing: Add Vit C 250mg QD + Cristian 1pkt BID : f/up w/ WC eval 3) Monitor lytes, replete as needed (3) Feeding by G-tube Assessment & Plan: cont tube feeds as tolerated (4) Chronic vegetative state Assessment & Plan: incontinence of urine and stool. can soil dressings. nurses doing great job with monitoring and changing prn (5) Leukocytosis Walter Madera Jan 28, 2019 20:23
[2019-01-28] MEDS: Iron Sucrose 100 MG in NS 55 ML IV SCH (21:00)
--- NOTE | 2019-01-28 21:00 | NUR ---
NURSE NOTES: Patient provided with oral care and suctioning for excess secretions. Patient tolerated care well O2 sats continue to remain between 98-100% VS remain stable. Right femoral triple lumen catheter removed during AM shift. Site was assessed for bleeding, no signs of bleeding noted. Patient remains resting in bed. Bed is in lowest position, safety wheels engaged, side rails up x3 and padded per seizure protocol, bed alarm activated and call light within reach. Family visiting with patient at bedside. Will continue to monitor.
[2019-01-29] VITALS: BP 115/75
--- NOTE | 2019-01-29 01:10 | NUR ---
NURSE NOTES: Patient provided with bed bath and PM care. Patient provided with oral care. Patient tolerated care well O2 sats continue to remain between 98-100% VS remain stable. Right femoral triple lumen catheter removed during AM shift. Site was assessed for bleeding again, no signs of bleeding noted. Patient remains resting in bed. Bed is in lowest position, safety wheels engaged, side rails up x3 and padded per seizure protocol, bed alarm activated and call light within reach. Family visiting with patient at bedside. Will continue to monitor.
--- NOTE | 2019-01-29 01:15 | NUR ---
NURSE NOTES: Patient's BM was a smear and not enough to collect for diagnostics Will continue to monitor
--- NOTE | 2019-01-29 01:15 | Progress Note ---
DATE: 01/28/2019 CARDIOLOGY PROGRESS NOTE SUBJECTIVE: The patient remains on ventilator support. Poorly responsive. Less congestion. OBJECTIVE: VITAL SIGNS: Blood pressure 105/76, pulse 77, and respirations 14. HEENT: Thin trach secretions. LUNGS: Bilateral rhonchi. HEART: Regular rhythm and rate. Normal S1, S2. ABDOMEN: Soft. G-tube intact. EXTREMITIES: No edema. LABORATORY DATA: Cultures with gram-negative bacillus in the sputum. White count 7.9, hemoglobin 8.5, potassium 3.8, BUN 12, and creatinine 1. IMPRESSION: 1. Healthcare-acquired pneumonia. 2. Ventilator-dependent respiratory failure. 3. Advanced dementia. 4. No signs of acute congestive heart failure. 5. Stable cardiac rhythm. 6. Hypertensive heart disease with controlled blood pressure. PLAN: 1. Antimicrobials. 2. Respiratory hygiene. 3. Ventilator support. 4. Nutrition by G-tube feeding site. 5. Consider transfusion for hemoglobin less than 7.5 grams. 6. DVT and stress ulcer prophylaxis. Bg Hagen M.D. DR: DAMEON JOB#: [id number] CC:
[2019-01-29] MEDS: Albuterol/Ipratropium 3ml neb HHN SCH ×3 (02:50→11:00)
[2019-01-29 04:00] VITALS: BP 126/58
[2019-01-29] MEDS: Piperacillin/Tazobactam 3.375 GM in NS 110 ML IVPB SCH ×3 (05:05→22:09)
[2019-01-29 05:16] LABS: EOSINOPHILS % (AUTO) 5.5 % (0.0-3.0); HEMATOCRIT 30.4 % (37.0-47.0); HEMOGLOBIN 9.5 G/DL (12.0-16.0); MEAN CORPUSCULAR VOLUME 86 FL (80-99); MONOCYTES % (AUTO) 6.5 % (1.0-10.0); PLATELET COUNT 199 K/UL (150-450); RED BLOOD COUNT 3.51 M/UL (4.20-5.40); RED CELL DISTRIBUTION WIDTH 17.7 % (11.6-14.8); WHITE BLOOD COUNT 7.7 K/UL (4.8-10.8)
--- NOTE | 2019-01-29 07:00 | NUR ---
HAND-OFF: Report given to JEANNINE Delgado. Pt is sleeping in bed. Extremities contacted. Not able to follow commands and non-verbal. Sinus rhythm on test bore helper. Trach to vent. AC 14, Tv 450, FiO2 40%, P5. O2 sat 98-100%. Moderate amount of oral secretion noted, suction present at bedside. pt. G-tube in place receiving Glucerna 1.5 at 30cc/hr. IV to right FA 22 left hand 20 patent, asymptomatic and dressing in tact. Bed in lowest position, side rails up x3, call light within reach, bed alarm activated and side rails padded per protocol.
--- NOTE | 2019-01-29 07:08 | NUR ---
NURSE NOTES: Received pt from JEANNINE Haro in stable condition with no cardiopulmonary distress noted. Pt is awake in bed, non-verbal, trache to vent Shiley 6, AC 14 TV 450 FiO2 40% Peep 5. GT noted running Glucerna 1.5 at 30cc/hr. Purewick noted draining yellow urine. Skin alterations noted. Pt has a RFA 22g and LH 20g IV. Bed in lowest position, alarm on, side rails up x2 and padded per seizure precaution, call light within reach. Will continue to monitor.
[2019-01-29 08:00] VITALS: BP 131/63
[2019-01-29] MEDS: Ferrous Sulfate 300 MG/5 ML UDC GT SCH ×2 (08:04→17:30)
[2019-01-29] MEDS: levETIRAcetam 500mg/5ml Liquid GT SCH ×2 (08:04→20:05)
[2019-01-29] MEDS: Ascorbic Acid 500mg tab ORAL SCH (08:04)
[2019-01-29] MEDS: Heparin 5000 units/ml inj SUBQ SCH ×2 (08:05→20:05)
[2019-01-29] MEDS: Miralax 17gm pkt GT SCH (08:05)
--- NOTE | 2019-01-29 08:07 | NUR ---
NURSE NOTES: Black loose stool noted. Heparin and polyethylene glycol held this morning. OBS collected and will be sent down to lab.
--- NOTE | 2019-01-29 08:39 | Pulmonology Progress Note ---
Assessment/Plan Assessment/Plan Impression: Sepsis syndrome Pneumonia VDRF, Trach, G tube, Hypertension, Cardiac disease, Dementia, Previous CVA, Seizure disorder, Respiratory failure with hypoxia Anemia Sacral ulcer Plan IV Antibiotics reviewed maintain SNF meds vent support as is and try to wean - trach collar trial HHN O2 RX Monitor labs PUD and DVT prophylaxis Patient is a DNR. No CPR. agree with transfusion impression, plan, and exam edited and reviewed in detail care discussed with RN Subjective ROS Limited/Unobtainable: Yes Allergies: Coded Allergies: CODEINE (Verified Allergy, Unknown, HIVES, 09/15/09) Subjective currently on the ventilator some congestion difficulty weaning supportive care noted Objective Last 24 Hour Vital Signs Date Time Temp Pulse Resp B/P (MAP) Pulse Ox O2 Delivery O2 Flow Rate FiO2 01/29/19 08:05 78 131/63 01/29/19 08:00 30 01/29/19 08:00 Mechanical Ventilator 01/29/19 08:00 97.9 78 15 131/63 (85) 98 01/29/19 07:06 77 15 Mechanical Ventilator 30 30 01/29/19 04:30 76 16 30 01/29/19 04:00 Mechanical Ventilator 01/29/19 04:00 97.7 85 14 126/58 (80) 98 01/29/19 04:00 30 01/29/19 03:40 74 01/29/19 02:50 76 15 100 Mechanical Ventilator 30 78 16 30 01/29/19 00:57 66 14 30 01/29/19 00:00 97.9 74 14 115/75 (88) 100 01/29/19 00:00 30 01/29/19 00:00 Mechanical Ventilator 01/28/19 23:26 66 01/28/19 23:21 65 16 100 Mechanical Ventilator 30 01/28/19 23:17 69 14 100 Mechanical Ventilator 30 74 16 30 01/28/19 21:20 79 14 30 01/28/19 20:00 Mechanical Ventilator 01/28/19 20:00 30 01/28/19 20:00 98.4 78 14 133/67 (89) 100 01/28/19 19:30 80 01/28/19 19:09 82 16 100 Mechanical Ventilator 30 84 16 30 01/28/19 17:02 75 14 100 Mechanical Ventilator 30 76 15 30 01/28/19 16:00 Mechanical Ventilator 01/28/19 16:00 30 01/28/19 15:51 76 01/28/19 15:24 98.6 77 14 105/76 (86) 100 01/28/19 14:57 78 16 100 Mechanical Ventilator 30 76 15 30 01/28/19 13:25 72 17 100 Mechanical Ventilator 30 84 15 30 01/28/19 12:00 97.5 77 15 103/54 (70) 100 01/28/19 12:00 Mechanical Ventilator 01/28/19 12:00 30 01/28/19 11:43 77 01/28/19 10:35 80 15 100 Mechanical Ventilator 30 84 15 30 01/28/19 09:22 75 14 30 01/28/19 08:39 82 126/65 Intake and Output 01/28/19 01/29/19 19:00 07:00 Intake Total 1016.208 ml 787.5 ml Output Total 400 ml 150 ml Balance 616.208 ml 637.5 ml Free Water 150 ml 50 ml IV Total 376.208 ml 377.5 ml Tube Feeding 390 ml 360 ml Other 100 ml Output Urine Total 400 ml 150 ml # Bowel Movements 1 1 Objective WDWN NAD contracted on vent reduced breath sounds bilaterally without rhonchi or wheeze [id number] without MRG NABS nontender no HSM no CC minimal nonfocal nonverbal trach and gt Microbiology Date/Time Source Procedure Growth Status 01/26/19 12:49 Sputum Gram Stain - Final Resulted 01/26/19 12:49 Sputum Culture - Preliminary Gram Negative Bacillus 1 Resulted Laboratory Tests 01/29/19 03:15: White Blood Count 7.7, Red Blood Count 3.51L, Hemoglobin 9.5L, Hematocrit 30.4L , Mean Corpuscular Volume 86, Mean Corpuscular Hemoglobin 27.2, Mean Corpuscular Hemoglobin Concent 31.4L, Red Cell Distribution Width 17.7H, Platelet Count 199, Mean Platelet Volume 4.8L, Neutrophils (%) (Auto) 56.0, Lymphocytes (%) (Auto) 31.0, Monocytes (%) (Auto) 6.5, Eosinophils (%) (Auto) 5.5H, Basophils (%) (Auto) 1.0 Current Medications Medications (Trade) Dose Ordered Sig/Maicol Route PRN Reason Start Time Stop Time Status Last Admin Dose Admin Albuterol/ Ipratropium (Albuterol/ Ipratropium) 3 ml Q4HRT HHN 01/24/19 15:00 01/29/19 14:59 01/29/19 07:06 Amlodipine Besylate (Norvasc) 10 mg DAILY GT 01/24/19 09:00 02/23/19 08:59 01/29/19 08:05 Ascorbic Acid (Vitamin C) 250 mg DAILY ORAL 01/25/19 09:00 02/24/19 08:59 01/29/19 08:04 Bisacodyl (Dulcolax) 10 mg PRN PRN RECTAL Constipation 01/24/19 05:30 02/23/19 05:29 Docusate Sodium (Colace) 100 mg DAILY PRN GT Constipation 01/24/19 05:45 02/23/19 05:29 Famotidine (Pepcid) 20 mg DAILY GT 01/24/19 09:00 02/23/19 08:59 01/29/19 08:04 Ferrous Sulfate (Feosol) 300 mg BID GT 01/24/19 09:00 02/23/19 08:59 01/29/19 08:04 Folic Acid (Folate) 1 mg DAILY GT 01/24/19 09:00 02/23/19 08:59 01/29/19 08:05 Heparin Sodium (Porcine) (Heparin 5000 units/ml) 5,000 units EVERY 12 HOURS SUBQ 01/24/19 09:00 02/23/19 08:59 01/28/19 21:00 Iron Sucrose 100 mg/Sodium Chloride 60 ml @ 240 mls/hr BEDTIME IV 01/28/19 21:00 02/01/19 21:14 01/28/19 21:00 Levetiracetam (Keppra) 750 mg Q12HR GT 01/28/19 21:00 02/23/19 08:59 01/29/19 08:04 Ondansetron HCl (Zofran) 4 mg Q6H PRN GT Nausea & Vomiting 01/24/19 05:30 02/23/19 05:29 Piperacillin Sod/ Tazobactam Sod 3.375 gm/Sodium Chloride 110 ml @ 27.5 mls/hr EVERY 8 HOURS IVPB 01/24/19 06:00 01/31/19 05:59 01/29/19 05:05 Polyethylene Glycol (Miralax) 17 gm DAILY GT 01/24/19 09:00 02/23/19 08:59 01/28/19 08:39 Zolpidem Tartrate (Ambien) 5 mg BEDTIME PRN GT Insomnia 01/24/19 05:30 01/31/19 05:29 Amuary Chan MD Jan 29, 2019 08:39
--- NOTE | 2019-01-29 10:16 | General Progress Note ---
Assessment/Plan Problem List: (1) Seizure ICD Codes: R56.9 - Unspecified convulsions SNOMED: 49128135 (2) Anemia ICD Codes: D64.9 - Anemia, unspecified SNOMED: 456457005 Qualifiers: Qualified Codes: D64.9 - Anemia, unspecified (3) Sepsis ICD Codes: A41.9 - Sepsis, unspecified organism SNOMED: 44275934, 923805669 Qualifiers: Qualified Codes: A41.9 - Sepsis, unspecified organism (4) Respiratory failure with hypoxia ICD Codes: J96.91 - Respiratory failure, unspecified with hypoxia SNOMED: 94138170149398569 Qualifiers: Qualified Codes: J96.21 - Acute and chronic respiratory failure with hypoxia (5) HCAP (healthcare-associated pneumonia) ICD Codes: J18.9 - Pneumonia, unspecified organism SNOMED: 250460747, 673585731 (6) Sacral decubitus ulcer ICD Codes: L89.159 - Pressure ulcer of sacral region, unspecified stage SNOMED: 812772858 (7) HTN (hypertension) ICD Codes: I10 - Essential (primary) hypertension SNOMED: 37016739 (8) Chronic vegetative state ICD Codes: R40.3 - Persistent vegetative state SNOMED: 93605148 (9) Chronic respiratory failure ICD Codes: J96.10 - Chronic respiratory failure, unspecified whether with hypoxia or hypercapnia SNOMED: 13738314 (10) Limited mobility ICD Codes: Z74.09 - Other reduced mobility SNOMED: 3185387 Status: stable, progressing Assessment/Plan: cont vent support resp rx suctioning as needed wean per pulm gt feeds monitor for aspiration iv abx per id follow up cultures monitor cxr- not improved(still with infiltrate) check iron panel/stool ob repeat cbc may need transfusion Subjective ROS Limited/Unobtainable: No Constitutional: Reports: malaise, weakness HEENT: Reports: no symptoms Cardiovascular: Reports: no symptoms Respiratory: Reports: cough, shortness of breath, sputum Gastrointestinal/Abdominal: Reports: difficulty swallowing Genitourinary: Reports: no symptoms Neurologic/Psychiatric: Reports: pre-existing deficit Endocrine: Reports: no symptoms Hematologic/Lymphatic: Reports: no symptoms Allergies: Coded Allergies: CODEINE (Verified Allergy, Unknown, HIVES, 09/15/09) All Systems: reviewed and negative except above Subjective no events. on the vent. poorly responsive. tolerating feeds. less congested. on 2 iv abx and inhaled colistin. still with left sided infiltrate. sputum cultures pending. no vomiting ID appreciated. Objective Last 24 Hour Vital Signs Date Time Temp Pulse Resp B/P (MAP) Pulse Ox O2 Delivery O2 Flow Rate FiO2 01/29/19 10:12 83 24 Mechanical Ventilator 30 30 01/29/19 08:05 78 131/63 01/29/19 08:00 30 01/29/19 08:00 Mechanical Ventilator 01/29/19 08:00 97.9 78 15 131/63 (85) 98 01/29/19 07:06 77 15 Mechanical Ventilator 30 30 01/29/19 04:30 76 16 30 01/29/19 04:00 Mechanical Ventilator 01/29/19 04:00 97.7 85 14 126/58 (80) 98 01/29/19 04:00 30 01/29/19 03:40 74 01/29/19 02:50 76 15 100 Mechanical Ventilator 30 78 16 30 01/29/19 00:57 66 14 30 01/29/19 00:00 97.9 74 14 115/75 (88) 100 01/29/19 00:00 30 01/29/19 00:00 Mechanical Ventilator 01/28/19 23:26 66 01/28/19 23:21 65 16 100 Mechanical Ventilator 30 01/28/19 23:17 69 14 100 Mechanical Ventilator 30 74 16 30 01/28/19 21:20 79 14 30 01/28/19 20:00 Mechanical Ventilator 01/28/19 20:00 30 01/28/19 20:00 98.4 78 14 133/67 (89) 100 01/28/19 19:30 80 01/28/19 19:09 82 16 100 Mechanical Ventilator 30 84 16 30 01/28/19 17:02 75 14 100 Mechanical Ventilator 30 76 15 30 01/28/19 16:00 Mechanical Ventilator 01/28/19 16:00 30 01/28/19 15:51 76 01/28/19 15:24 98.6 77 14 105/76 (86) 100 01/28/19 14:57 78 16 100 Mechanical Ventilator 30 76 15 30 01/28/19 13:25 72 17 100 Mechanical Ventilator 30 84 15 30 01/28/19 12:00 97.5 77 15 103/54 (70) 100 10/30/19 12:00 Mechanical Ventilator 01/28/19 12:00 30 01/28/19 11:43 77 01/28/19 10:35 80 15 100 Mechanical Ventilator 30 84 15 30 Intake and Output 01/28/19 01/29/19 18:59 06:59 Intake Total 1016.208 ml 815.0 ml Output Total 400 ml 150 ml Balance 616.208 ml 665.0 ml Free Water 150 ml 50 ml IV Total 376.208 ml 405.0 ml Tube Feeding 390 ml 360 ml Other 100 ml Output Urine Total 400 ml 150 ml # Bowel Movements 1 1 Laboratory Tests 01/29/19 03:15: White Blood Count 7.7, Red Blood Count 3.51L, Hemoglobin 9.5L, Hematocrit 30.4L , Mean Corpuscular Volume 86, Mean Corpuscular Hemoglobin 27.2, Mean Corpuscular Hemoglobin Concent 31.4L, Red Cell Distribution Width 17.7H, Platelet Count 199, Mean Platelet Volume 4.8L, Neutrophils (%) (Auto) 56.0, Lymphocytes (%) (Auto) 31.0, Monocytes (%) (Auto) 6.5, Eosinophils (%) (Auto) 5.5H, Basophils (%) (Auto) 1.0 Height (Feet): 5 Height (Inches): 5.00 Weight (Pounds): 180 Objective General Appearance: WD/WN, confused Neck: supple Cardiovascular: normal rate, regular rhythm Respiratory/Chest: chest wall non-tender, rhonchi - bilaterally Abdomen: normal bowel sounds, non tender, soft, no organomegaly Edema: no edema noted Arm (L), no edema noted Arm (R), no edema noted Leg (L), no edema noted Leg (R), no edema noted Pedal (L), no edema noted Pedal (R), no edema noted Generalized Neurologic: disoriented, unresponsive, aphasia Irvin Beltrán MD Jan 29, 2019 10:16
--- NOTE | 2019-01-29 10:17 | Infectious Diseases Prog Note ---
Assessment/Plan Assessment/Plan A 1. gram negative pneumonia 2. respiratory failure 3. hypertension 4. CVA 5. dementia 6. sacral decubitus ulcer 7. rectal VRE colonization 8. Anemia P 1. . continue Zosyn 2. will follow up cultures Subjective ROS Limited/Unobtainable: Yes Constitutional: Denies: fever Allergies: Coded Allergies: CODEINE (Verified Allergy, Unknown, HIVES, 09/15/09) Objective Vital Signs Last 24 Hour Vital Signs Date Time Temp Pulse Resp B/P (MAP) Pulse Ox O2 Delivery O2 Flow Rate FiO2 01/29/19 08:05 78 131/63 01/29/19 08:00 30 01/29/19 08:00 Mechanical Ventilator 01/29/19 08:00 97.9 78 15 131/63 (85) 98 01/29/19 07:06 77 15 Mechanical Ventilator 30 30 01/29/19 04:30 76 16 30 01/29/19 04:00 Mechanical Ventilator 01/29/19 04:00 97.7 85 14 126/58 (80) 98 01/29/19 04:00 30 01/29/19 03:40 74 01/29/19 02:50 76 15 100 Mechanical Ventilator 30 78 16 30 01/29/19 00:57 66 14 30 01/29/19 00:00 97.9 74 14 115/75 (88) 100 01/29/19 00:00 30 01/29/19 00:00 Mechanical Ventilator 01/28/19 23:26 66 01/28/19 23:21 65 16 100 Mechanical Ventilator 30 01/28/19 23:17 69 14 100 Mechanical Ventilator 30 74 16 30 01/28/19 21:20 79 14 30 01/28/19 20:00 Mechanical Ventilator 01/28/19 20:00 30 01/28/19 20:00 98.4 78 14 133/67 (89) 100 01/28/19 19:30 80 01/28/19 19:09 82 16 100 Mechanical Ventilator 30 84 16 30 01/28/19 17:02 75 14 100 Mechanical Ventilator 30 76 15 30 01/28/19 16:00 Mechanical Ventilator 01/28/19 16:00 30 01/28/19 15:51 76 01/28/19 15:24 98.6 77 14 105/76 (86) 100 01/28/19 14:57 78 16 100 Mechanical Ventilator 30 76 15 30 01/28/19 13:25 72 17 100 Mechanical Ventilator 30 84 15 30 01/28/19 12:00 97.5 77 15 103/54 (70) 100 01/28/19 12:00 Mechanical Ventilator 01/28/19 12:00 30 01/28/19 11:43 77 01/28/19 10:35 80 15 100 Mechanical Ventilator 30 84 15 30 Height (Feet): 5 Height (Inches): 5.00 Weight (Pounds): 180 HEENT: status post trach Respiratory/Chest: lungs clear, other - on ventilator Cardiovascular: normal rate Abdomen: soft, non tender, other - GT feeding Extremities: other - trace edema Neurologic/Psychiatric: aphasia, other - opens eyes Musculoskeletal: atrophy Microbiology Date/Time Source Procedure Growth Status 01/26/19 12:49 Sputum Gram Stain - Final Resulted 01/26/19 12:49 Sputum Culture - Preliminary Gram Negative Bacillus 1 Resulted Laboratory Tests Test 01/29/19 03:15 White Blood Count 7.7 K/UL (4.8-10.8) Red Blood Count 3.51 M/UL (4.20-5.40) L Hemoglobin 9.5 G/DL (12.0-16.0) L Hematocrit 30.4 % (37.0-47.0) L Mean Corpuscular Volume 86 FL (80-99) Mean Corpuscular Hemoglobin 27.2 PG (27.0-31.0) Mean Corpuscular Hemoglobin Concent 31.4 G/DL (32.0-36.0) L Red Cell Distribution Width 17.7 % (11.6-14.8) H Platelet Count 199 K/UL (150-450) Mean Platelet Volume 4.8 FL (6.5-10.1) L Neutrophils (%) (Auto) 56.0 % (45.0-75.0) Lymphocytes (%) (Auto) 31.0 % (20.0-45.0) Monocytes (%) (Auto) 6.5 % (1.0-10.0) Eosinophils (%) (Auto) 5.5 % (0.0-3.0) H Basophils (%) (Auto) 1.0 % (0.0-2.0) Current Medications Medications (Trade) Dose Ordered Sig/Maicol Route PRN Reason Start Time Stop Time Status Last Admin Dose Admin Albuterol/ Ipratropium (Albuterol/ Ipratropium) 3 ml Q4HRT HHN 01/24/19 15:00 01/29/19 14:59 01/29/19 07:06 Amlodipine Besylate (Norvasc) 10 mg DAILY GT 01/24/19 09:00 02/23/19 08:59 01/29/19 08:05 Ascorbic Acid (Vitamin C) 250 mg DAILY ORAL 01/25/19 09:00 02/24/19 08:59 01/29/19 08:04 Bisacodyl (Dulcolax) 10 mg PRN PRN RECTAL Constipation 01/24/19 05:30 02/23/19 05:29 Docusate Sodium (Colace) 100 mg DAILY PRN GT Constipation 01/24/19 05:45 02/23/19 05:29 Famotidine (Pepcid) 20 mg DAILY GT 01/24/19 09:00 02/23/19 08:59 01/29/19 08:04 Ferrous Sulfate (Feosol) 300 mg BID GT 01/24/19 09:00 02/23/19 08:59 01/29/19 08:04 Folic Acid (Folate) 1 mg DAILY GT 01/24/19 09:00 02/23/19 08:59 01/29/19 08:05 Heparin Sodium (Porcine) (Heparin 5000 units/ml) 5,000 units EVERY 12 HOURS SUBQ 01/24/19 09:00 02/23/19 08:59 01/28/19 21:00 Iron Sucrose 100 mg/Sodium Chloride 60 ml @ 240 mls/hr BEDTIME IV 01/28/19 21:00 02/01/19 21:14 01/28/19 21:00 Levetiracetam (Keppra) 750 mg Q12HR GT 01/28/19 21:00 02/23/19 08:59 01/29/19 08:04 Ondansetron HCl (Zofran) 4 mg Q6H PRN GT Nausea & Vomiting 01/24/19 05:30 02/23/19 05:29 Piperacillin Sod/ Tazobactam Sod 3.375 gm/Sodium Chloride 110 ml @ 27.5 mls/hr EVERY 8 HOURS IVPB 01/24/19 06:00 01/31/19 05:59 01/29/19 05:05 Polyethylene Glycol (Miralax) 17 gm DAILY GT 01/24/19 09:00 02/23/19 08:59 01/28/19 08:39 Zolpidem Tartrate (Ambien) 5 mg BEDTIME PRN GT Insomnia 01/24/19 05:30 01/31/19 05:29 Chauncey Liriano MD Jan 29, 2019 10:16
--- NOTE | 2019-01-29 10:35 | NUR ---
NURSE NOTES: Pt placed on cool aerosol at 30%. SpO2 100%. Will continue to monitor.
--- NOTE | 2019-01-29 10:35 | NUR ---
Per Dr. Chan's order, pt placed on CA 30%. SaO2 100. Will continue to monitor.
[2019-01-29 12:00] VITALS: BP 137/57
[2019-01-29 16:00] VITALS: BP 126/75
--- NOTE | 2019-01-29 16:20 | Surgery Progress Note ---
Surgery Progress Note Subjective Additional Comments On T-piece trach with nebulized air. Tube feeds at 30 tolerating. Labs noted. Exam unchanged. Objective Last 24 Hour Vital Signs Date Time Temp Pulse Resp B/P (MAP) Pulse Ox O2 Delivery O2 Flow Rate FiO2 01/29/19 16:00 Mechanical Ventilator 01/29/19 16:00 30 01/29/19 12:45 100 Trach Collar 10.0 30 01/29/19 12:00 Mechanical Ventilator 01/29/19 12:00 77 01/29/19 12:00 30 01/29/19 12:00 98.4 84 24 137/57 (83) 94 01/29/19 11:36 77 01/29/19 10:35 30 01/29/19 10:35 77 01/29/19 08:39 83 24 Mechanical Ventilator 30 30 01/29/19 08:05 78 131/63 01/29/19 08:00 30 01/29/19 08:00 Mechanical Ventilator 01/29/19 08:00 97.9 78 15 131/63 (85) 98 01/29/19 08:00 72 01/29/19 07:06 77 15 Mechanical Ventilator 30 30 01/29/19 04:30 76 16 30 01/29/19 04:00 Mechanical Ventilator 01/29/19 04:00 97.7 85 14 126/58 (80) 98 01/29/19 04:00 30 01/29/19 03:40 74 01/29/19 02:50 76 15 100 Mechanical Ventilator 30 78 16 30 01/29/19 00:57 66 14 30 01/29/19 00:00 97.9 74 14 115/75 (88) 100 01/29/19 00:00 30 01/29/19 00:00 Mechanical Ventilator 01/28/19 23:26 66 01/28/19 23:21 65 16 100 Mechanical Ventilator 30 01/28/19 23:17 69 14 100 Mechanical Ventilator 30 74 16 30 01/28/19 21:20 79 14 30 01/28/19 20:00 Mechanical Ventilator 01/28/19 20:00 30 01/28/19 20:00 98.4 78 14 133/67 (89) 100 01/28/19 19:30 80 01/28/19 19:09 82 16 100 Mechanical Ventilator 30 84 16 30 01/28/19 17:02 75 14 30 I&O Intake and Output 01/28/19 01/29/19 19:00 07:00 Intake Total 1016.208 ml 787.5 ml Output Total 400 ml 150 ml Balance 616.208 ml 637.5 ml Free Water 150 ml 50 ml IV Total 376.208 ml 377.5 ml Tube Feeding 390 ml 360 ml Other 100 ml Output Urine Total 400 ml 150 ml # Bowel Movements 1 1 Dressing: saturated Wound: other Drains: other Cardiovascular: RSR Respiratory: clear, decreased breath sounds Abdomen: soft, present bowel sounds, non-distended Extremities: no tenderness, no cyanosis Laboratory Tests Test 01/29/19 03:15 01/29/19 12:05 White Blood Count 7.7 K/UL (4.8-10.8) Red Blood Count 3.51 M/UL (4.20-5.40) L Hemoglobin 9.5 G/DL (12.0-16.0) L Hematocrit 30.4 % (37.0-47.0) L Mean Corpuscular Volume 86 FL (80-99) Mean Corpuscular Hemoglobin 27.2 PG (27.0-31.0) Mean Corpuscular Hemoglobin Concent 31.4 G/DL (32.0-36.0) L Red Cell Distribution Width 17.7 % (11.6-14.8) H Platelet Count 199 K/UL (150-450) Mean Platelet Volume 4.8 FL (6.5-10.1) L Neutrophils (%) (Auto) 56.0 % (45.0-75.0) Lymphocytes (%) (Auto) 31.0 % (20.0-45.0) Monocytes (%) (Auto) 6.5 % (1.0-10.0) Eosinophils (%) (Auto) 5.5 % (0.0-3.0) H Basophils (%) (Auto) 1.0 % (0.0-2.0) Arterial Blood pH 7.387 (7.350-7.450) Arterial Blood Partial Pressure CO2 41.8 mmHg (35.0-45.0) Arterial Blood Partial Pressure O2 83.2 mmHg (75.0-100.0) Arterial Blood HCO3 24.6 mmol/L (22.0-26.0) Arterial Blood Oxygen Saturation 95.0 % (95-100) Arterial Blood Base Excess -0.4 (-2-2) Murphy Test Positive Plan Problems: (1) Sacral decubitus ulcer Assessment & Plan: This is a 83-year-old female with multiple medical committees that is currently admitted for medical care and management and identified to have multiple wounds requiring care. On admission patient noted to have a resolved sacral decubitus ulcer. Has had prior care and is well-healed at this time. Will ensure it does not open up again. Patient has a right ischial decubitus ulcer that is resolved. Scar intact and well formed. Will monitor to ensure it does not open up again. Patient has a left ischial decubitus ulcer that can be identified to be stage IV with palpable bone that has been resolving as noted by the periwound tissue and scar but open area approximately 1 cm x 1.5 cm few millimeters deep to bone identified. Unsure if this is been to be completely healed prior and has since opened or if has been healing at this level. No foul odor no drainage was unsure local wound care until healed Bilateral heels soft without signs of injury Treatment plan: Please apply skin protectant and optifoam to sacral area. Change every 3 days Please apply skin protectant and optifoam to right ischial area. Change every 3 days Please apply Thera honey infused gauze to small opening in the left ischial wound bed followed by skin protectant in the periwound and up to foam. Change daily as needed saturation Offload pressure from heels with pillow Air soft mattress Turn every 2 hours Nutritional optimization We will monitor follow with recommendations (2) Sepsis Assessment & Plan: IV abx as per ID trend labs wounds unlikely etiology likely respiratory DAILY ESTIMATED NEEDS: Needs based on Critical care, wounds/ 60kg adj 22-28 kcals/kg [id number] total kcals 1.25-2 g protein/kg 75-120 g total protein 25-30 mL/kg 2646-0127 total fluid mLs NUTRITION DIAGNOSIS: * Swallowing difficulty R/T respiratory status as evidenced by trach/vent dep, PEG dep. * Increased kcal/prot needs R/T wound healing as evidenced by BL buttocks and sacral wound photos, pending evaluation. 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 can soil dressings. nurses doing great job with monitoring and changing prn (5) Leukocytosis Walter Madera Jan 29, 2019 16:19
--- NOTE | 2019-01-29 19:11 | NUR ---
NURSE NOTES: Received pt from JEANNINE Delgado in stable condition with no cardiopulmonary distress noted. Pt is awake in bed, non-verbal, Patient is receiving oxygen 8L at 30% FiO2 PRN Vent order remains active Shiley 6, AC 14 TV 450 FiO2 40% Peep 5. GT noted running Glucerna 1.5 at 30cc/hr. Purewick noted draining yellow urine. Skin alterations noted. Pt has a RFA 22g. Patients daughter is at bedside. Bed is in the lowest position, bed alarm on, side rails up x2 and padded per seizure precaution, safety wheels engaged and call light within reach. Will continue to monitor.
--- NOTE | 2019-01-29 19:11 | NUR ---
HAND-OFF: Report given to JEANNINE Haro. Pt in stable condition.
[2019-01-29 20:00] VITALS: BP 133/80
[2019-01-29] MEDS: Iron Sucrose 100 MG in NS 55 ML IV SCH (20:05)
--- NOTE | 2019-01-29 21:00 | NUR ---
NURSE NOTES: AM nurse endorsed that patient had two BM 01/29/19 both of which were black. Heparin held pending OB stool results. Will continue to monitor.
--- NOTE | 2019-01-29 22:28 | NUR ---
NURSE NOTES: Provided patient with bed bath, oral care and complete linen change. Patient tolerated care well. Patient remains in resting in bed. Bed is in lowest position, safety wheels engaged, bed alarm activated, side rails padded per protocol and up x3. Will continue to monitor.
--- NOTE | 2019-01-29 23:45 | Progress Note ---
DATE: 01/29/2019 CARDIOLOGY PROGRESS NOTE SUBJECTIVE: The patient is noncommunicative. On ventilator support. Still with secretions. Tolerating G-tube feedings. PHYSICAL EXAMINATION: VITAL SIGNS: Blood pressure 126/75, heart rate 82, and respiratory rate 18. Monitored rhythm, sinus. LUNGS: Bilateral breath sounds and rhonchi. Thin secretions. HEART: Regular rhythm and rate. Normal S1, S2. G-tube intact. EXTREMITIES: Trace edema. LABORATORY DATA: Sputum is gram-negative bacillus. Final results pending. White count 7.7 and hemoglobin 9.5. ABG, pH 7.39, pCO2 42, and pO2 83. IMPRESSION: 1. Respiratory failure. 2. Advanced dementia. 3. Healthcare-acquired pneumonia. 4. Dysphagia with G-tube. 5. Hypertensive heart disease. 6. Chronic diastolic congestive heart failure. PLAN: 1. No new cardiovascular intervention is planned. 2. Continue current therapy and plan transfer to a lower level of care once cleared by Infectious Disease hematology oncology consultant. 3. We will follow up hemoglobin and consider transfusion if less than 7.5 g[address] Bg Hagen M.D. DR: DAMEON JOB#: [id number] CC:
[2019-01-30] VITALS: BP 152/79
--- NOTE | 2019-01-30 02:00 | NUR ---
NURSE NOTES: Patient provided with a bed bath and oral care. Patient tolerated care well. Patient continues resting in bed. Bed in lowest position, safety wheels engaged, HOB elevated, call light within reach, bed alarm activated and side rails up x3 and padded per protocol. Will continue to monitor.
[2019-01-30 04:00] VITALS: BP 124/65
--- NOTE | 2019-01-30 04:00 | NUR ---
NURSE NOTES: Patient provided with oral care partial linen change. Patient tolerated care well. Patient continues resting in bed. Bed in lowest position, safety wheels engaged, HOB elevated, call light within reach, bed alarm activated and side rails up x3 and padded per protocol. Will continue to monitor.
[2019-01-30] MEDS: Piperacillin/Tazobactam 3.375 GM in NS 110 ML IVPB SCH ×3 (05:26→21:45)
--- NOTE | 2019-01-30 07:15 | NUR ---
NURSE NOTES: Received patient from JEANNINE Haro. Patient is obtunded, opens eyes upon light shaking but pt is unable to track. Contracture noted all extremities. Patient has a tracheostomy, currently on cool aerosol 8L, FIo2 30%. Tolerating well. Oxygen saturation at 98%, non-labored and even breathing noted. Rhonchi heard bilateral b/s. NSR on pvc monitor. PEG running Glucerna 1.5@30ml/hr, no residual, HOB 35 degrees. Pt is incontinent, purwick draining well. Siderails are padded for seizure precautions; sxn and O2 at bedside. RFA 22G connected to TKO. Per PM shift, patient x2 tarry stools during the night. Will hold Heparin. Bed locked, alarmed and in lowest position. Will continue plan of care.
--- NOTE | 2019-01-30 07:15 | NUR ---
HAND-OFF: Report given to Gisselle Steiner RN. Patient is in stable condition with no cardiopulmonary distress noted. Pt is awake in bed, non-verbal, Patient is receiving oxygen 8L at 30% FiO2 PRN Vent order remains active Shiley 6, AC 14 TV 450 FiO2 40% Peep 5. GT patenet with no residual and currently running Glucerna 1.5 at 30cc/hr. Purewick noted draining yellow urine. Skin alterations noted. Pt has a RFA 22g. Bed is in the lowest position, bed alarm on, side rails up x2 and padded per seizure precaution, safety wheels engaged and call light within reach.
[2019-01-30 08:00] VITALS: BP 141/80
[2019-01-30] MEDS: Ferrous Sulfate 300 MG/5 ML UDC GT SCH ×2 (08:36→17:42)
[2019-01-30] MEDS: levETIRAcetam 500mg/5ml Liquid GT SCH ×2 (08:36→20:45)
[2019-01-30] MEDS: Ascorbic Acid 500mg tab ORAL SCH (08:36)
[2019-01-30] MEDS: Miralax 17gm pkt GT SCH (08:36)
[2019-01-30] MEDS: Heparin 5000 units/ml inj SUBQ SCH ×2 (08:37→20:46)
--- NOTE | 2019-01-30 09:02 | Pulmonology Progress Note ---
Assessment/Plan Assessment/Plan Impression: Sepsis syndrome Pneumonia VDRF, Trach, G tube, Hypertension, Cardiac disease, Dementia, Previous CVA, Seizure disorder, Respiratory failure with hypoxia Anemia Sacral ulcer Plan IV Antibiotics reviewed maintain SNF meds off vent as able trach collar now HHN O2 RX Monitor labs PUD and DVT prophylaxis Patient is a DNR. No CPR. agree with transfusion impression, plan, and exam edited and reviewed in detail care discussed with RN Subjective ROS Limited/Unobtainable: Yes Allergies: Coded Allergies: CODEINE (Verified Allergy, Unknown, HIVES, 09/15/09) Subjective currently on the ventilator some congestion off vent as able difficulty weaning supportive care noted Objective Last 24 Hour Vital Signs Date Time Temp Pulse Resp B/P (MAP) Pulse Ox O2 Delivery O2 Flow Rate FiO2 01/30/19 08:36 73 141/80 01/30/19 08:03 100 T-Piece 10.0 30 01/30/19 08:00 Mechanical Ventilator 01/30/19 08:00 97.5 73 24 141/80 (100) 100 01/30/19 08:00 8.0 30 01/30/19 04:00 98.0 75 20 124/65 (84) 96 01/30/19 04:00 Mechanical Ventilator 01/30/19 04:00 8.0 30 01/30/19 03:35 73 01/30/19 01:00 98 Trach Collar 10.0 30 01/30/19 00:00 Mechanical Ventilator 01/30/19 00:00 98.1 85 20 152/79 (103) 98 01/30/19 00:00 8.0 30 01/29/19 23:35 81 01/29/19 23:19 81 19 01/29/19 21:32 85 18 01/29/19 20:00 Mechanical Ventilator 01/29/19 20:00 98.1 88 20 133/80 (97) 100 01/29/19 19:51 80 01/29/19 19:00 87 18 01/29/19 19:00 99 Trach Collar 10.0 30 01/29/19 18:09 8.0 30 01/29/19 16:00 Mechanical Ventilator 01/29/19 16:00 82 01/29/19 16:00 97.9 82 23 126/75 (92) 98 01/29/19 16:00 30 01/29/19 12:45 100 Trach Collar 10.0 30 01/29/19 12:00 Mechanical Ventilator 01/29/19 12:00 77 01/29/19 12:00 30 01/29/19 12:00 98.4 84 24 137/57 (83) 94 01/29/19 11:36 77 01/29/19 10:35 30 01/29/19 10:35 77 Intake and Output 01/29/19 01/30/19 19:00 07:00 Intake Total 702.5 ml 657.5 ml Output Total 600 ml 250 ml Balance 102.5 ml 407.5 ml Free Water 0 ml 100 ml IV Total 192.5 ml 197.5 ml Tube Feeding 360 ml 360 ml Blood Product 150 ml Output Urine Total 600 ml 250 ml # Voids 1 3 # Bowel Movements 3 Objective WDWN NAD contracted on vent reduced breath sounds bilaterally without rhonchi or wheeze [id number] without MRG NABS nontender no HSM no CC minimal nonfocal nonverbal trach and gt Laboratory Tests 01/29/19 12:05: Arterial Blood pH 7.387, Arterial Blood Partial Pressure CO2 41.8, Arterial Blood Partial Pressure O2 83.2, Arterial Blood HCO3 24.6, Arterial Blood Oxygen Saturation 95.0, Arterial Blood Base Excess -0.4, Murphy Test Positive Current Medications Medications (Trade) Dose Ordered Sig/Maicol Route PRN Reason Start Time Stop Time Status Last Admin Dose Admin Amlodipine Besylate (Norvasc) 10 mg DAILY GT 01/24/19 09:00 02/23/19 08:59 01/30/19 08:36 Ascorbic Acid (Vitamin C) 250 mg DAILY ORAL 01/25/19 09:00 02/24/19 08:59 01/30/19 08:36 Bisacodyl (Dulcolax) 10 mg PRN PRN RECTAL Constipation 01/24/19 05:30 02/23/19 05:29 Docusate Sodium (Colace) 100 mg DAILY PRN GT Constipation 01/24/19 05:45 02/23/19 05:29 Famotidine (Pepcid) 20 mg DAILY GT 01/24/19 09:00 02/23/19 08:59 01/30/19 08:36 Ferrous Sulfate (Feosol) 300 mg BID GT 01/24/19 09:00 02/23/19 08:59 01/30/19 08:36 Folic Acid (Folate) 1 mg DAILY GT 01/24/19 09:00 02/23/19 08:59 01/30/19 08:36 Heparin Sodium (Porcine) (Heparin 5000 units/ml) 5,000 units EVERY 12 HOURS SUBQ 01/24/19 09:00 02/23/19 08:59 01/30/19 08:37 Iron Sucrose 100 mg/Sodium Chloride 60 ml @ 240 mls/hr BEDTIME IV 01/28/19 21:00 02/01/19 21:14 01/29/19 20:05 Levetiracetam (Keppra) 750 mg Q12HR GT 01/28/19 21:00 02/23/19 08:59 01/30/19 08:36 Ondansetron HCl (Zofran) 4 mg Q6H PRN GT Nausea & Vomiting 01/24/19 05:30 02/23/19 05:29 Piperacillin Sod/ Tazobactam Sod 3.375 gm/Sodium Chloride 110 ml @ 27.5 mls/hr EVERY 8 HOURS IVPB 01/24/19 06:00 01/31/19 05:59 01/30/19 05:26 Polyethylene Glycol (Miralax) 17 gm DAILY GT 01/24/19 09:00 02/23/19 08:59 01/30/19 08:36 Zolpidem Tartrate (Ambien) 5 mg BEDTIME PRN GT Insomnia 01/24/19 05:30 01/31/19 05:29 Amaury Chan MD Jan 30, 2019 09:02
--- NOTE | 2019-01-30 09:13 | General Progress Note ---
Assessment/Plan Problem List: (1) Seizure ICD Codes: R56.9 - Unspecified convulsions SNOMED: 48849022 (2) Anemia ICD Codes: D64.9 - Anemia, unspecified SNOMED: 833751727 Qualifiers: Qualified Codes: D64.9 - Anemia, unspecified (3) Sepsis ICD Codes: A41.9 - Sepsis, unspecified organism SNOMED: 78443561, 225165290 Qualifiers: Qualified Codes: A41.9 - Sepsis, unspecified organism (4) Respiratory failure with hypoxia ICD Codes: J96.91 - Respiratory failure, unspecified with hypoxia SNOMED: 46735599963455264 Qualifiers: Qualified Codes: J96.21 - Acute and chronic respiratory failure with hypoxia (5) HCAP (healthcare-associated pneumonia) ICD Codes: J18.9 - Pneumonia, unspecified organism SNOMED: 284430729, 775126956 (6) Sacral decubitus ulcer ICD Codes: L89.159 - Pressure ulcer of sacral region, unspecified stage SNOMED: 155576650 (7) HTN (hypertension) ICD Codes: I10 - Essential (primary) hypertension SNOMED: 15064470 (8) Chronic vegetative state ICD Codes: R40.3 - Persistent vegetative state SNOMED: 43559506 (9) Chronic respiratory failure ICD Codes: J96.10 - Chronic respiratory failure, unspecified whether with hypoxia or hypercapnia SNOMED: 30543331 (10) Limited mobility ICD Codes: Z74.09 - Other reduced mobility SNOMED: 7953631 Status: stable, progressing Assessment/Plan: cont vent support resp rx suctioning as needed wean per pulm gt feeds monitor for aspiration iv abx per id follow up cultures monitor cxr Subjective ROS Limited/Unobtainable: Yes Constitutional: Reports: malaise, weakness HEENT: Reports: no symptoms Cardiovascular: Reports: no symptoms Respiratory: Reports: cough, sputum Gastrointestinal/Abdominal: Reports: difficulty swallowing Genitourinary: Reports: no symptoms Neurologic/Psychiatric: Reports: pre-existing deficit Endocrine: Reports: no symptoms Hematologic/Lymphatic: Reports: no symptoms Allergies: Coded Allergies: CODEINE (Verified Allergy, Unknown, HIVES, 09/15/09) All Systems: reviewed and negative except above Subjective no events. off the vent. poorly responsive. tolerating feeds. less congested. Objective Last 24 Hour Vital Signs Date Time Temp Pulse Resp B/P (MAP) Pulse Ox O2 Delivery O2 Flow Rate FiO2 01/30/19 08:36 73 141/80 01/30/19 08:03 100 T-Piece 10.0 30 01/30/19 08:00 Mechanical Ventilator 01/30/19 08:00 97.5 73 24 141/80 (100) 100 01/30/19 08:00 8.0 30 01/30/19 04:00 98.0 75 20 124/65 (84) 96 01/30/19 04:00 Mechanical Ventilator 01/30/19 04:00 8.0 30 01/30/19 03:35 73 01/30/19 01:00 98 Trach Collar 10.0 30 01/30/19 00:00 Mechanical Ventilator 01/30/19 00:00 98.1 85 20 152/79 (103) 98 01/30/19 00:00 8.0 30 01/29/19 23:35 81 01/29/19 23:19 81 19 01/29/19 21:32 85 18 01/29/19 20:00 Mechanical Ventilator 01/29/19 20:00 98.1 88 20 133/80 (97) 100 01/29/19 19:51 80 01/29/19 19:00 87 18 01/29/19 19:00 99 Trach Collar 10.0 30 01/29/19 18:09 8.0 30 01/29/19 16:00 Mechanical Ventilator 01/29/19 16:00 82 01/29/19 16:00 97.9 82 23 126/75 (92) 98 01/29/19 16:00 30 01/29/19 12:45 100 Trach Collar 10.0 30 01/29/19 12:00 Mechanical Ventilator 01/29/19 12:00 77 01/29/19 12:00 30 01/29/19 12:00 98.4 84 24 137/57 (83) 94 01/29/19 11:36 77 01/29/19 10:35 30 01/29/19 10:35 77 Intake and Output 01/29/19 01/30/19 19:00 07:00 Intake Total 702.5 ml 657.5 ml Output Total 600 ml 250 ml Balance 102.5 ml 407.5 ml Free Water 0 ml 100 ml IV Total 192.5 ml 197.5 ml Tube Feeding 360 ml 360 ml Blood Product 150 ml Output Urine Total 600 ml 250 ml # Voids 1 3 # Bowel Movements 3 Laboratory Tests 01/29/19 12:05: Arterial Blood pH 7.387, Arterial Blood Partial Pressure CO2 41.8, Arterial Blood Partial Pressure O2 83.2, Arterial Blood HCO3 24.6, Arterial Blood Oxygen Saturation 95.0, Arterial Blood Base Excess -0.4, Murphy Test Positive Height (Feet): 5 Height (Inches): 5.00 Weight (Pounds): 180 Objective General Appearance: WD/WN, confused Neck: supple Cardiovascular: normal rate, regular rhythm Respiratory/Chest: chest wall non-tender, rhonchi - bilaterally Abdomen: normal bowel sounds, non tender, soft, no organomegaly Edema: no edema noted Arm (L), no edema noted Arm (R), no edema noted Leg (L), no edema noted Leg (R), no edema noted Pedal (L), no edema noted Pedal (R), no edema noted Generalized Neurologic: disoriented, unresponsive, aphasia Irvin Beltrán MD Jan 30, 2019 09:13
[2019-01-30 12:00] VITALS: BP 122/71
--- NOTE | 2019-01-30 12:08 | NUR ---
CASE MANAGEMENT:REVIEW 01/30/19 SI: SEPSIS. PNA. RESPIRATORY FAILURE CAME W/TRACH COLLAR-->VENT--> T-PIECE 97.5 73 24 1141/80 100% ON T-PIECE 10L/30% FIO2 H/H-9.5/30.4 IS: IV ZOSYN Q8HRS KEPPRA GT Q12 HEPARIN SQ Q12 NORVASC GT QD DUONEB INH Q4HRS RTC : STEP DOWN UNIT DCP; WESTERN CONV PLAN: WEAN TO T-PIECE VENT PRN SOB
--- NOTE | 2019-01-30 12:12 | Infectious Diseases Prog Note ---
Assessment/Plan Assessment/Plan A 1. Acinetobacter, pseudomonas & Klebsiella pneumonia 2. respiratory failure 3. hypertension 4. CVA 5. dementia 6. sacral decubitus ulcer 7. rectal VRE colonization 8. Anemia P 1. . continue Zosyn, Add Bactrim 2. will follow up cultures Subjective ROS Limited/Unobtainable: Yes Constitutional: Denies: fever Allergies: Coded Allergies: CODEINE (Verified Allergy, Unknown, HIVES, 09/15/09) Objective Vital Signs Last 24 Hour Vital Signs Date Time Temp Pulse Resp B/P (MAP) Pulse Ox O2 Delivery O2 Flow Rate FiO2 01/30/19 08:36 73 141/80 01/30/19 08:03 100 T-Piece 10.0 30 01/30/19 08:00 94 01/30/19 08:00 Mechanical Ventilator 01/30/19 08:00 97.5 73 24 141/80 (100) 100 01/30/19 08:00 8.0 30 01/30/19 04:00 98.0 75 20 124/65 (84) 96 01/30/19 04:00 Mechanical Ventilator 01/30/19 04:00 8.0 30 01/30/19 03:35 73 01/30/19 01:00 98 Trach Collar 10.0 30 01/30/19 00:00 Mechanical Ventilator 01/30/19 00:00 98.1 85 20 152/79 (103) 98 01/30/19 00:00 8.0 30 01/29/19 23:35 81 01/29/19 23:19 81 19 01/29/19 21:32 85 18 01/29/19 20:00 Mechanical Ventilator 01/29/19 20:00 98.1 88 20 133/80 (97) 100 01/29/19 19:51 80 01/29/19 19:00 87 18 01/29/19 19:00 99 Trach Collar 10.0 30 01/29/19 18:09 8.0 30 01/29/19 16:00 Mechanical Ventilator 01/29/19 16:00 82 01/29/19 16:00 97.9 82 23 126/75 (92) 98 01/29/19 16:00 30 01/29/19 12:45 100 Trach Collar 10.0 30 Height (Feet): 5 Height (Inches): 5.00 Weight (Pounds): 180 HEENT: status post trach Respiratory/Chest: lungs clear, other - on T bar Cardiovascular: normal rate Abdomen: soft, non tender, other - GT feeding Extremities: no edema Neurologic/Psychiatric: unresponsiveness, aphasia Musculoskeletal: atrophy Current Medications Medications (Trade) Dose Ordered Sig/Maicol Route PRN Reason Start Time Stop Time Status Last Admin Dose Admin Amlodipine Besylate (Norvasc) 10 mg DAILY GT 01/24/19 09:00 02/23/19 08:59 01/30/19 08:36 Ascorbic Acid (Vitamin C) 250 mg DAILY ORAL 01/25/19 09:00 02/24/19 08:59 01/30/19 08:36 Bisacodyl (Dulcolax) 10 mg PRN PRN RECTAL Constipation 01/24/19 05:30 02/23/19 05:29 Docusate Sodium (Colace) 100 mg DAILY PRN GT Constipation 01/24/19 05:45 02/23/19 05:29 Famotidine (Pepcid) 20 mg DAILY GT 01/24/19 09:00 02/23/19 08:59 01/30/19 08:36 Ferrous Sulfate (Feosol) 300 mg BID GT 01/24/19 09:00 02/23/19 08:59 01/30/19 08:36 Folic Acid (Folate) 1 mg DAILY GT 01/24/19 09:00 02/23/19 08:59 01/30/19 08:36 Heparin Sodium (Porcine) (Heparin 5000 units/ml) 5,000 units EVERY 12 HOURS SUBQ 01/24/19 09:00 02/23/19 08:59 01/30/19 08:37 Iron Sucrose 100 mg/Sodium Chloride 60 ml @ 240 mls/hr BEDTIME IV 01/28/19 21:00 02/01/19 21:14 01/29/19 20:05 Levetiracetam (Keppra) 750 mg Q12HR GT 01/28/19 21:00 02/23/19 08:59 01/30/19 08:36 Ondansetron HCl (Zofran) 4 mg Q6H PRN GT Nausea & Vomiting 01/24/19 05:30 02/23/19 05:29 Piperacillin Sod/ Tazobactam Sod 3.375 gm/Sodium Chloride 110 ml @ 27.5 mls/hr EVERY 8 HOURS IVPB 01/24/19 06:00 01/31/19 05:59 01/30/19 05:26 Polyethylene Glycol (Miralax) 17 gm DAILY GT 01/24/19 09:00 02/23/19 08:59 01/30/19 08:36 Zolpidem Tartrate (Ambien) 5 mg BEDTIME PRN GT Insomnia 01/24/19 05:30 01/31/19 05:29 Chauncey Liriano MD Jan 30, 2019 12:12
--- NOTE | 2019-01-30 12:20 | NUR ---
HAND-OFF: Report given to JEANNINE Vieira. No change in condition. Patient had x1 BM during shift.
--- NOTE | 2019-01-30 12:45 | NUR ---
NURSE NOTES: report received from Isha PAEZ.Pt sleeping quietly in bed ,no resp distress presented,with Trach collar 30% FIO2,no signs of pain or discomfort SR on the monitor,GTF Glucerna 1.5 at 30 ml/hr no residual,Pure wick in placed draining yellow urine,pt contracted to upper extremities,skin warm and dry with IV helock to RT/LT hand.SR up x2 HOB elevated,bed lock in lowest position will continue with plans of care.
--- NOTE | 2019-01-30 13:12 | NUR ---
RD ASSESSMENT & RECOMMENDATIONS SEE CARE ACTIVITY FOR COMPLETE ASSESSMENT DAILY ESTIMATED NEEDS: Needs based on Critical care, wounds/ 60kg adj 22-28 kcals/kg 7557-2961 total kcals 1.25-2 g protein/kg 75-120 g total protein 25-30 mL/kg 5983-1054 total fluid mLs NUTRITION DIAGNOSIS: * Swallowing difficulty R/T respiratory status as evidenced by trach/vent dep, PEG dep. * Increased kcal/prot needs R/T wound healing as evidenced by BL buttocks and sacral wound photos, refer to WC eval. (CURRENT TF: Glucerna 1.5 @ 30ml/hr x 24 hrs) ENTERAL NUTRITION RECOMMENDATIONS: Jevity 1.2 @ 55ml/hr x 24 hrs + Prosource 1pkt QD to provide 1320ml, 1584kcal, 73g +11g prot, 1060ml free water - Rec to continue [employer] P[employer] TF of Jevity 1.2 - Rec Jevity 1.2 @ goal rate of 55ml/hr x 24 hrs - Add Prosource 1pkt daily to meet protein needs - Flush per MD/ HOB over 30 degrees ADDITIONAL RECOMMENDATIONS: 1) Re-calibrated bedscale wt for accurate CBW 2) Wound healing: Add Vit C 250mg BID + Cristian 1pkt BID Pt w/ full thickness resolving wound TF rec at goal provides 100% RDI's 3) Monitor lytes, replete as needed .
[2019-01-30] MEDS: Bactrim Susp 20ml NG SCH (14:22)
--- NOTE | 2019-01-30 15:35 | Surgery Progress Note ---
Surgery Progress Note Subjective Additional Comments tolerating t piece trach exam stable dressings going well Objective Last 24 Hour Vital Signs Date Time Temp Pulse Resp B/P (MAP) Pulse Ox O2 Delivery O2 Flow Rate FiO2 01/30/19 13:11 100 T-Piece 10.0 30 01/30/19 11:34 73 01/30/19 08:36 73 141/80 01/30/19 08:03 100 T-Piece 10.0 30 01/30/19 08:00 94 01/30/19 08:00 Mechanical Ventilator 01/30/19 08:00 97.5 73 24 141/80 (100) 100 01/30/19 08:00 8.0 30 01/30/19 07:57 71 01/30/19 04:00 98.0 75 20 124/65 (84) 96 01/30/19 04:00 Mechanical Ventilator 01/30/19 04:00 8.0 30 01/30/19 03:35 73 01/30/19 01:00 98 Trach Collar 10.0 30 01/30/19 00:00 Mechanical Ventilator 01/30/19 00:00 98.1 85 20 152/79 (103) 98 01/30/19 00:00 8.0 30 01/29/19 23:35 81 01/29/19 23:19 81 19 01/29/19 21:32 85 18 01/29/19 20:00 Mechanical Ventilator 01/29/19 20:00 98.1 88 20 133/80 (97) 100 01/29/19 19:51 80 01/29/19 19:00 87 18 01/29/19 19:00 99 Trach Collar 10.0 30 01/29/19 18:09 8.0 30 01/29/19 16:00 Mechanical Ventilator 01/29/19 16:00 82 01/29/19 16:00 97.9 82 23 126/75 (92) 98 01/29/19 16:00 30 I&O Intake and Output 01/29/19 01/30/19 18:59 06:59 Intake Total 702.5 ml 657.5 ml Output Total 600 ml 250 ml Balance 102.5 ml 407.5 ml Free Water 0 ml 100 ml IV Total 192.5 ml 197.5 ml Tube Feeding 360 ml 360 ml Blood Product 150 ml Output Urine Total 600 ml 250 ml # Voids 1 3 # Bowel Movements 3 Dressing: dry Wound: clean, other Drains: other Cardiovascular: RSR Respiratory: decreased breath sounds Abdomen: soft, present bowel sounds, non-distended Extremities: no cyanosis, other Plan Problems: (1) Sacral decubitus ulcer Assessment & Plan: This is a 83-year-old female with multiple medical committees that is currently admitted for medical care and management and identified to have multiple wounds requiring care. On admission patient noted to have a resolved sacral decubitus ulcer. Has had prior care and is well-healed at this time. Will ensure it does not open up again. Patient has a right ischial decubitus ulcer that is resolved. Scar intact and well formed. Will monitor to ensure it does not open up again. Patient has a left ischial decubitus ulcer that can be identified to be stage IV with palpable bone that has been resolving as noted by the periwound tissue and scar but open area approximately 1 cm x 1.5 cm few millimeters deep to bone identified. Unsure if this is been to be completely healed prior and has since opened or if has been healing at this level. No foul odor no drainage was unsure local wound care until healed Bilateral heels soft without signs of injury Treatment plan: Please apply skin protectant and optifoam to sacral area. Change every 3 days Please apply skin protectant and optifoam to right ischial area. Change every 3 days Please apply Thera honey infused gauze to small opening in the left ischial wound bed followed by skin protectant in the periwound and up to foam. Change daily as needed saturation Offload pressure from heels with pillow Air soft mattress Turn every 2 hours Nutritional optimization We will monitor follow with recommendations (2) Sepsis Assessment & Plan: IV abx as per ID trend labs wounds unlikely etiology likely respiratory DAILY ESTIMATED NEEDS: Needs based on Critical care, wounds/ 60kg adj 22-28 kcals/kg 7378-2074 total kcals 1.25-2 g protein/kg 75-120 g total protein 25-30 mL/kg 7255-9141 total fluid mLs NUTRITION DIAGNOSIS: * Swallowing difficulty R/T respiratory status as evidenced by trach/vent dep, PEG dep. * Increased kcal/prot needs R/T wound healing as evidenced by BL buttocks and sacral wound photos, pending evaluation. CURRENT TF:Glucerna 1.5 @ 30ml/hr x 24 hrs ENTERAL NUTRITION RECOMMENDATIONS: Jevity 1.2 @ 55ml/hr x 24 hrs + Prosource 1pkt QD to provide 1320ml, 1584kcal, 73g +11g prot, 1060ml free water - Rec to continue HOT DIP GALVANIZER TF of Jevity 1.2 - Rec Jevity 1.2 @ goal rate of 55ml/hr x 24 hrs - Add Prosource 1pkt daily to meet protein needs - Flush per MD/ HOB over 30 degrees ADDITIONAL RECOMMENDATIONS: 1) Re-calibrated bedscale wt for accurate CBW 2) Wound healing: Add Vit C 250mg QD + Cristian 1pkt BID : f/up w/ WC eval 3) Monitor lytes, replete as needed (3) Feeding by G-tube Assessment & Plan: cont tube feeds as tolerated (4) Chronic vegetative state Assessment & Plan: incontinence of urine and stool. can soil dressings. nurses doing great job with monitoring and changing prn (5) Leukocytosis Walter Madera Jan 30, 2019 15:35
[2019-01-30 16:00] VITALS: BP 141/82
--- NOTE | 2019-01-30 16:00 | NUR ---
NURSE NOTES: Oral /tracheal secretions suctioned PRN,oral care done turned and repositioned.
--- NOTE | 2019-01-30 18:00 | NUR ---
NURSE NOTES: Pt stable no resp distress presented during the shift.
--- NOTE | 2019-01-30 19:30 | NUR ---
HAND-OFF: Report given to Lorenza Nuñez RN..
--- NOTE | 2019-01-30 19:40 | NUR ---
NURSE NOTES: Received report from JEANNINE Shaw. Pt is resting on the bed and obtunded. On Trach collar with O2 8L FiO2 30%5 and SaO2 100% noted. Given tracheal and oral suction. Whitish thick secretion suctioned. Provided oral care. IV site intact and no sign of infiltration noted. On g-tube feeding with Glucerna 1.5 @ 30cc/hr and no residual noted. No sign of pain by FLACC scale. On Purewicks in placed. Dressing is clean and dry on wounds area. Changed potion. Placed fall and seizure precaution. Will continue to care plan.
[2019-01-30 20:00] VITALS: BP 147/78
[2019-01-30] MEDS: Iron Sucrose 100 MG in NS 55 ML IV SCH (20:45)
[2019-01-30] MEDS ORDERED: NS 275ml ONE (21:10)
[2019-01-30] MEDS ORDERED: Tubing IV Secondary IV ONE (21:10)
--- NOTE | 2019-01-30 22:01 | Progress Note ---
DATE: 01/30/2019 CARDIOLOGY PROGRESS NOTE SUBJECTIVE: Status relatively unchanged. Noncommunicative. On ventilator support. Less congestion and secretions. OBJECTIVE: VITAL SIGNS: Blood pressure 141/80, pulse 73, and respirations 24. Monitored rhythm, sinus with rare ectopic. HEENT: Thin trach secretions. Moderate in quantity. LUNGS: Bilateral rhonchi. HEART: Regular rhythm and rate. Normal S1, S2. ABDOMEN: Soft. G-tube intact. EXTREMITIES: Trace dependent edema. LABORATORY DATA: Latest laboratories from January 29, 2019 were noted. IMPRESSION: 1. Respiratory failure. 2. Healthcare-acquired pneumonia. 3. Recovering sepsis. 4. Chronic diastolic congestive heart failure. 5. Hypertensive heart disease. 6. Anemia of chronic disease. PLAN: 1. No change in cardiovascular regimen. 2. Continue current support. Bg Hagen M.D. DR: DAMEON JOB#: [id number] CC:
[2019-01-31] VITALS: BP 140/80
[2019-01-31 04:00] VITALS: BP 133/65
[2019-01-31] MEDS: Piperacillin/Tazobactam 3.375 GM in NS 110 ML IVPB SCH ×3 (05:36→21:43)
[2019-01-31 05:55] LABS: BASOPHILS % (AUTO) 0.8 % (0.0-2.0); HEMATOCRIT 35.2 % (37.0-47.0); HEMOGLOBIN 10.9 G/DL (12.0-16.0); LYMPHOCYTES % (AUTO) 28.6 % (20.0-45.0); MEAN CORPUSCULAR VOLUME 86 FL (80-99); MONOCYTES % (AUTO) 7.6 % (1.0-10.0); PLATELET COUNT 217 K/UL (150-450); WHITE BLOOD COUNT 9.1 K/UL (4.8-10.8)
[2019-01-31 06:08] LABS: ALANINE AMINOTRANSFERASE 66 U/L (12-78); ALBUMIN 2.9 G/DL (3.4-5.0); ALBUMIN/GLOBULIN RATIO 0.5 (1.0-2.7); ALKALINE PHOSPHATASE 176 U/L (46-116); ANION GAP 9 mmol/L (5-15); ASPARTATE AMINO TRANSFERASE 42 U/L (15-37); BILIRUBIN,TOTAL 0.4 MG/DL (0.2-1.0); BLOOD UREA NITROGEN 14 mg/dL (7-18); CALCIUM 9.7 MG/DL (8.5-10.1); CARBON DIOXIDE 28 MMOL/L (21-32); CHLORIDE 106 MMOL/L (98-107); CREATININE 1.1 MG/DL (0.55-1.30); POTASSIUM 4.4 MMOL/L (3.5-5.1); SODIUM 143 MMOL/L (136-145)
--- NOTE | 2019-01-31 06:58 | NUR ---
RESPIRATORY NOTE: pt has been off vent and on CA since 01/29. came and ordered pt back on vent. vent settings are as followed but with an fio2 of 28%. pt in no resp distress, spo2 has been 100 and HR WNL. pt is productive with small amounts of white/think frothy secretions. alarms has been set and are audible. ambu bag and back up trach at bedside. will cont to monitor.
--- NOTE | 2019-01-31 07:15 | NUR ---
NURSE NOTES: Report received from Lorenza PAEZ. Pt obtunded, non verbal and responsive to pain. Pt SR on monitoring manager. Copious secretions suctioned orally and from trache. Pt currently trache to vent AC 14, TV 400, 35%, PEEP 5. GTF glucerna 1.5 @ 30 cc/hr. Purewick noted and intact draining urine. RFA 22 G noted and intact. Safety measures in place with bed locked and in lowest position, side rails x3 up and bed alarm on. Will continue to monitor and continue plan of care.
[2019-01-31 08:00] VITALS: BP 123/72
--- NOTE | 2019-01-31 08:18 | NUR ---
RESPIRATORY NOTE: removed pt off vent and again placed on CA-30%. no resp distress noted. small amount of secretions when sxn'd. current spo2 99%. will cont to monitor.
[2019-01-31] MEDS: levETIRAcetam 500mg/5ml Liquid GT SCH ×2 (08:52→21:16)
[2019-01-31] MEDS: Bactrim Susp 20ml NG SCH ×2 (08:53→21:16)
[2019-01-31] MEDS: Ferrous Sulfate 300 MG/5 ML UDC GT SCH ×2 (08:53→17:44)
[2019-01-31] MEDS: Miralax 17gm pkt GT SCH (08:54)
[2019-01-31] MEDS: Ascorbic Acid 500mg tab ORAL SCH (08:55)
[2019-01-31] MEDS: Heparin 5000 units/ml inj SUBQ SCH ×2 (08:56→21:17)
--- NOTE | 2019-01-31 10:33 | General Progress Note ---
Assessment/Plan Problem List: (1) Seizure ICD Codes: R56.9 - Unspecified convulsions SNOMED: 34364574 (2) Anemia ICD Codes: D64.9 - Anemia, unspecified SNOMED: 074600968 Qualifiers: Qualified Codes: D64.9 - Anemia, unspecified (3) Sepsis ICD Codes: A41.9 - Sepsis, unspecified organism SNOMED: 04477751, 644854348 Qualifiers: Qualified Codes: A41.9 - Sepsis, unspecified organism (4) Respiratory failure with hypoxia ICD Codes: J96.91 - Respiratory failure, unspecified with hypoxia SNOMED: 39877142618190919 Qualifiers: Qualified Codes: J96.21 - Acute and chronic respiratory failure with hypoxia (5) HCAP (healthcare-associated pneumonia) ICD Codes: J18.9 - Pneumonia, unspecified organism SNOMED: 345620140, 528952509 (6) Sacral decubitus ulcer ICD Codes: L89.159 - Pressure ulcer of sacral region, unspecified stage SNOMED: 762989961 (7) HTN (hypertension) ICD Codes: I10 - Essential (primary) hypertension SNOMED: 34763198 (8) Chronic vegetative state ICD Codes: R40.3 - Persistent vegetative state SNOMED: 76212389 (9) Chronic respiratory failure ICD Codes: J96.10 - Chronic respiratory failure, unspecified whether with hypoxia or hypercapnia SNOMED: 24113793 (10) Limited mobility ICD Codes: Z74.09 - Other reduced mobility SNOMED: 0955552 Status: stable, progressing Assessment/Plan: wean vent resp rx suctioning as needed wean per pulm gt feeds monitor for aspiration iv abx per id follow up cultures monitor cxr Subjective ROS Limited/Unobtainable: No Constitutional: Reports: malaise, weakness HEENT: Reports: no symptoms Cardiovascular: Reports: no symptoms Respiratory: Reports: shortness of breath, sputum Gastrointestinal/Abdominal: Reports: difficulty swallowing Genitourinary: Reports: no symptoms Neurologic/Psychiatric: Reports: pre-existing deficit Endocrine: Reports: no symptoms Hematologic/Lymphatic: Reports: anemia Allergies: Coded Allergies: CODEINE (Verified Allergy, Unknown, HIVES, 09/15/09) All Systems: reviewed and negative except above Subjective no events. off the vent. poorly responsive. tolerating feeds. less congested. currently back on the vent. Objective Last 24 Hour Vital Signs Date Time Temp Pulse Resp B/P (MAP) Pulse Ox O2 Delivery O2 Flow Rate FiO2 01/31/19 08:54 78 123/72 01/31/19 08:00 8.0 30 01/31/19 08:00 97.0 78 19 123/72 (89) 100 01/31/19 08:00 Mechanical Ventilator 01/31/19 08:00 68 01/31/19 07:01 79 14 28 01/31/19 06:57 100 Mechanical Ventilator 28 01/31/19 04:00 8.0 30 01/31/19 04:00 Mechanical Ventilator 01/31/19 04:00 98.8 90 22 133/65 (87) 100 01/31/19 03:40 74 01/31/19 01:06 100 T-Piece 10.0 30 01/31/19 00:00 Mechanical Ventilator 01/31/19 00:00 8.0 30 01/31/19 00:00 97.9 93 22 140/80 (100) 100 01/31/19 00:00 78 01/30/19 20:00 Mechanical Ventilator 01/30/19 20:00 8.0 30 01/30/19 20:00 81 01/30/19 20:00 98.4 85 24 147/78 (101) 100 01/30/19 19:53 100 T-Piece 10.0 30 01/30/19 16:08 8.0 30 01/30/19 16:01 Mechanical Ventilator 01/30/19 16:00 73 01/30/19 16:00 98.0 72 24 141/82 (101) 100 01/30/19 13:11 100 T-Piece 10.0 30 01/30/19 12:00 8.0 30 01/30/19 12:00 Mechanical Ventilator 01/30/19 12:00 97.5 70 25 122/71 (88) 100 01/30/19 11:34 73 Intake and Output 01/30/19 01/31/19 19:00 07:00 Intake Total 587.5 ml 557.5 ml Output Total 400 ml Balance 187.5 ml 557.5 ml Free Water 60 ml IV Total 137.5 ml 197.5 ml Tube Feeding 390 ml 360 ml Output Urine Total 400 ml # Voids 3 # Bowel Movements 2 2 Laboratory Tests 01/31/19 03:55: White Blood Count 9.1, Red Blood Count 4.10L, Hemoglobin 10.9L, Hematocrit 35.2L , Mean Corpuscular Volume 86, Mean Corpuscular Hemoglobin 26.5L, Mean Corpuscular Hemoglobin Concent 30.9L, Red Cell Distribution Width 18.0H, Platelet Count 217, Mean Platelet Volume 5.9L, Neutrophils (%) (Auto) 59.0, Lymphocytes (%) (Auto) 28.6, Monocytes (%) (Auto) 7.6, Eosinophils (%) (Auto) 4.0H, Basophils (%) (Auto) 0.8, Sodium Level 143, Potassium Level 4.4, Chloride Level 106, Carbon Dioxide Level 28, Anion Gap 9, Blood Urea Nitrogen 14, Creatinine 1.1, Estimat Glomerular Filtration Rate , Glucose Level 71L, Calcium Level 9.7, Magnesium Level 2.1, Total Bilirubin 0.4, Aspartate Amino Transf (AST /SGOT) 42H, Alanine Aminotransferase (ALT/SGPT) 66, Alkaline Phosphatase 176H, Pro-B-Type Natriuretic Peptide 200H, Total Protein 8.7H, Albumin 2.9L, Globulin 5.8, Albumin/Globulin Ratio 0.5L Height (Feet): 5 Height (Inches): 5.00 Weight (Pounds): 180 Objective General Appearance: WD/WN, confused Neck: supple Cardiovascular: normal rate, regular rhythm Respiratory/Chest: chest wall non-tender, rhonchi - bilaterally Abdomen: normal bowel sounds, non tender, soft, no organomegaly Edema: no edema noted Arm (L), no edema noted Arm (R), no edema noted Leg (L), no edema noted Leg (R), no edema noted Pedal (L), no edema noted Pedal (R), no edema noted Generalized Neurologic: disoriented, unresponsive, aphasia Irvin Beltrán MD Jan 31, 2019 10:33
--- NOTE | 2019-01-31 10:37 | General Progress Note ---
Assessment/Plan Problem List: (1) Seizure ICD Codes: R56.9 - Unspecified convulsions SNOMED: 90864795 (2) Anemia ICD Codes: D64.9 - Anemia, unspecified SNOMED: 033004173 Qualifiers: Qualified Codes: D64.9 - Anemia, unspecified (3) Sepsis ICD Codes: A41.9 - Sepsis, unspecified organism SNOMED: 05176671, 311057767 Qualifiers: Qualified Codes: A41.9 - Sepsis, unspecified organism (4) Respiratory failure with hypoxia ICD Codes: J96.91 - Respiratory failure, unspecified with hypoxia SNOMED: 54959240598509835 Qualifiers: Qualified Codes: J96.21 - Acute and chronic respiratory failure with hypoxia (5) HCAP (healthcare-associated pneumonia) ICD Codes: J18.9 - Pneumonia, unspecified organism SNOMED: 324057263, 191233534 (6) Sacral decubitus ulcer ICD Codes: L89.159 - Pressure ulcer of sacral region, unspecified stage SNOMED: 295175391 (7) HTN (hypertension) ICD Codes: I10 - Essential (primary) hypertension SNOMED: 88338186 (8) Chronic vegetative state ICD Codes: R40.3 - Persistent vegetative state SNOMED: 99646622 (9) Chronic respiratory failure ICD Codes: J96.10 - Chronic respiratory failure, unspecified whether with hypoxia or hypercapnia SNOMED: 25838523 (10) Limited mobility ICD Codes: Z74.09 - Other reduced mobility SNOMED: 8073027 Status: stable, progressing Assessment/Plan: wean vent resp rx suctioning as needed wean per pulm gt feeds monitor for aspiration iv abx per id follow up cultures monitor cxr Subjective ROS Limited/Unobtainable: No Constitutional: Reports: malaise, weakness HEENT: Reports: no symptoms Cardiovascular: Reports: no symptoms Respiratory: Reports: no symptoms Gastrointestinal/Abdominal: Reports: no symptoms Genitourinary: Reports: no symptoms Neurologic/Psychiatric: Reports: no symptoms Endocrine: Reports: no symptoms Hematologic/Lymphatic: Reports: no symptoms Allergies: Coded Allergies: CODEINE (Verified Allergy, Unknown, HIVES, 09/15/09) Subjective no events. poorly responsive. tolerating feeds. less congested. currently back on the vent. Objective Last 24 Hour Vital Signs Date Time Temp Pulse Resp B/P (MAP) Pulse Ox O2 Delivery O2 Flow Rate FiO2 01/31/19 08:54 78 123/72 01/31/19 08:00 8.0 30 01/31/19 08:00 97.0 78 19 123/72 (89) 100 01/31/19 08:00 Mechanical Ventilator 01/31/19 08:00 68 01/31/19 07:01 79 14 28 01/31/19 06:57 100 Mechanical Ventilator 28 01/31/19 04:00 8.0 30 01/31/19 04:00 Mechanical Ventilator 01/31/19 04:00 98.8 90 22 133/65 (87) 100 01/31/19 03:40 74 01/31/19 01:06 100 T-Piece 10.0 30 01/31/19 00:00 Mechanical Ventilator 01/31/19 00:00 8.0 30 01/31/19 00:00 97.9 93 22 140/80 (100) 100 01/31/19 00:00 78 01/30/19 20:00 Mechanical Ventilator 01/30/19 20:00 8.0 30 01/30/19 20:00 81 01/30/19 20:00 98.4 85 24 147/78 (101) 100 01/30/19 19:53 100 T-Piece 10.0 30 01/30/19 16:08 8.0 30 01/30/19 16:01 Mechanical Ventilator 01/30/19 16:00 73 01/30/19 16:00 98.0 72 24 141/82 (101) 100 01/30/19 13:11 100 T-Piece 10.0 30 01/30/19 12:00 8.0 30 01/30/19 12:00 Mechanical Ventilator 01/30/19 12:00 97.5 70 25 122/71 (88) 100 01/30/19 11:34 73 Intake and Output 01/30/19 01/31/19 19:00 07:00 Intake Total 587.5 ml 557.5 ml Output Total 400 ml Balance 187.5 ml 557.5 ml Free Water 60 ml IV Total 137.5 ml 197.5 ml Tube Feeding 390 ml 360 ml Output Urine Total 400 ml # Voids 3 # Bowel Movements 2 2 Laboratory Tests 01/31/19 03:55: White Blood Count 9.1, Red Blood Count 4.10L, Hemoglobin 10.9L, Hematocrit 35.2L , Mean Corpuscular Volume 86, Mean Corpuscular Hemoglobin 26.5L, Mean Corpuscular Hemoglobin Concent 30.9L, Red Cell Distribution Width 18.0H, Platelet Count 217, Mean Platelet Volume 5.9L, Neutrophils (%) (Auto) 59.0, Lymphocytes (%) (Auto) 28.6, Monocytes (%) (Auto) 7.6, Eosinophils (%) (Auto) 4.0H, Basophils (%) (Auto) 0.8, Sodium Level 143, Potassium Level 4.4, Chloride Level 106, Carbon Dioxide Level 28, Anion Gap 9, Blood Urea Nitrogen 14, Creatinine 1.1, Estimat Glomerular Filtration Rate , Glucose Level 71L, Calcium Level 9.7, Magnesium Level 2.1, Total Bilirubin 0.4, Aspartate Amino Transf (AST /SGOT) 42H, Alanine Aminotransferase (ALT/SGPT) 66, Alkaline Phosphatase 176H, Pro-B-Type Natriuretic Peptide 200H, Total Protein 8.7H, Albumin 2.9L, Globulin 5.8, Albumin/Globulin Ratio 0.5L Height (Feet): 5 Height (Inches): 5.00 Weight (Pounds): 180 Objective General Appearance: WD/WN, confused Neck: supple Cardiovascular: normal rate, regular rhythm Respiratory/Chest: chest wall non-tender, rhonchi - bilaterally Abdomen: normal bowel sounds, non tender, soft, no organomegaly Edema: no edema noted Arm (L), no edema noted Arm (R), no edema noted Leg (L), no edema noted Leg (R), no edema noted Pedal (L), no edema noted Pedal (R), no edema noted Generalized Neurologic: disoriented, unresponsive, aphasia Irvin Beltrán MD Jan 31, 2019 10:37
--- NOTE | 2019-01-31 11:22 | Surgery Progress Note ---
Surgery Progress Note Subjective Additional Comments no acute events labs stable micro noted sputum dressings being changed Objective Last 24 Hour Vital Signs Date Time Temp Pulse Resp B/P (MAP) Pulse Ox O2 Delivery O2 Flow Rate FiO2 01/31/19 08:54 78 123/72 01/31/19 08:00 8.0 30 01/31/19 08:00 97.0 78 19 123/72 (89) 100 01/31/19 08:00 Mechanical Ventilator 01/31/19 08:00 68 01/31/19 07:01 79 14 28 01/31/19 06:57 100 Mechanical Ventilator 28 01/31/19 04:00 8.0 30 01/31/19 04:00 Mechanical Ventilator 01/31/19 04:00 98.8 90 22 133/65 (87) 100 01/31/19 03:40 74 01/31/19 01:06 100 T-Piece 10.0 30 01/31/19 00:00 Mechanical Ventilator 01/31/19 00:00 8.0 30 01/31/19 00:00 97.9 93 22 140/80 (100) 100 01/31/19 00:00 78 01/30/19 20:00 Mechanical Ventilator 01/30/19 20:00 8.0 30 01/30/19 20:00 81 01/30/19 20:00 98.4 85 24 147/78 (101) 100 01/30/19 19:53 100 T-Piece 10.0 30 01/30/19 16:08 8.0 30 01/30/19 16:01 Mechanical Ventilator 01/30/19 16:00 73 01/30/19 16:00 98.0 72 24 141/82 (101) 100 01/30/19 13:11 100 T-Piece 10.0 30 01/30/19 12:00 8.0 30 01/30/19 12:00 Mechanical Ventilator 01/30/19 12:00 97.5 70 25 122/71 (88) 100 01/30/19 11:34 73 I&O Intake and Output 01/30/19 01/31/19 19:00 07:00 Intake Total 587.5 ml 570.5 ml Output Total 400 ml Balance 187.5 ml 570.5 ml Free Water 60 ml IV Total 137.5 ml 210.5 ml Tube Feeding 390 ml 360 ml Output Urine Total 400 ml # Voids 3 # Bowel Movements 2 2 Dressing: saturated Wound: clean, other Drains: other Cardiovascular: RSR Respiratory: clear, decreased breath sounds Abdomen: soft, present bowel sounds, non-distended Extremities: no tenderness, no cyanosis Laboratory Tests Test 01/31/19 03:55 White Blood Count 9.1 K/UL (4.8-10.8) Red Blood Count 4.10 M/UL (4.20-5.40) L Hemoglobin 10.9 G/DL (12.0-16.0) L Hematocrit 35.2 % (37.0-47.0) L Mean Corpuscular Volume 86 FL (80-99) Mean Corpuscular Hemoglobin 26.5 PG (27.0-31.0) L Mean Corpuscular Hemoglobin Concent 30.9 G/DL (32.0-36.0) L Red Cell Distribution Width 18.0 % (11.6-14.8) H Platelet Count 217 K/UL (150-450) Mean Platelet Volume 5.9 FL (6.5-10.1) L Neutrophils (%) (Auto) 59.0 % (45.0-75.0) Lymphocytes (%) (Auto) 28.6 % (20.0-45.0) Monocytes (%) (Auto) 7.6 % (1.0-10.0) Eosinophils (%) (Auto) 4.0 % (0.0-3.0) H Basophils (%) (Auto) 0.8 % (0.0-2.0) Sodium Level 143 MMOL/L (136-145) Potassium Level 4.4 MMOL/L (3.5-5.1) Chloride Level 106 MMOL/L (98-107) Carbon Dioxide Level 28 MMOL/L (21-32) Anion Gap 9 mmol/L (5-15) Blood Urea Nitrogen 14 mg/dL (7-18) Creatinine 1.1 MG/DL (0.55-1.30) Estimat Glomerular Filtration Rate mL/min (>60) Glucose Level 71 MG/DL (74-106) L Calcium Level 9.7 MG/DL (8.5-10.1) Magnesium Level 2.1 MG/DL (1.8-2.4) Total Bilirubin 0.4 MG/DL (0.2-1.0) Aspartate Amino Transf (AST/SGOT) 42 U/L (15-37) H Alanine Aminotransferase (ALT/SGPT) 66 U/L (12-78) Alkaline Phosphatase 176 U/L (46-116) H Pro-B-Type Natriuretic Peptide 200 pg/mL (0-125) H Total Protein 8.7 G/DL (6.4-8.2) H Albumin 2.9 G/DL (3.4-5.0) L Globulin 5.8 g/dL Albumin/Globulin Ratio 0.5 (1.0-2.7) L Plan Problems: (1) Sacral decubitus ulcer Assessment & Plan: This is a 83-year-old female with multiple medical committees that is currently admitted for medical care and management and identified to have multiple wounds requiring care. On admission patient noted to have a resolved sacral decubitus ulcer. Has had prior care and is well-healed at this time. Will ensure it does not open up again. Patient has a right ischial decubitus ulcer that is resolved. Scar intact and well formed. Will monitor to ensure it does not open up again. Patient has a left ischial decubitus ulcer that can be identified to be stage IV with palpable bone that has been resolving as noted by the periwound tissue and scar but open area approximately 1 cm x 1.5 cm few millimeters deep to bone identified. Unsure if this is been to be completely healed prior and has since opened or if has been healing at this level. No foul odor no drainage was unsure local wound care until healed Bilateral heels soft without signs of injury Treatment plan: Please apply skin protectant and optifoam to sacral area. Change every 3 days Please apply skin protectant and optifoam to right ischial area. Change every 3 days Please apply Thera honey infused gauze to small opening in the left ischial wound bed followed by skin protectant in the periwound and up to foam. Change daily as needed saturation Offload pressure from heels with pillow Air soft mattress Turn every 2 hours Nutritional optimization We will monitor follow with recommendations (2) Sepsis Assessment & Plan: IV abx as per ID trend labs wounds unlikely etiology likely respiratory DAILY ESTIMATED NEEDS: Needs based on Critical care, wounds/ 60kg adj 22-28 kcals/kg 4415-1862 total kcals 1.25-2 g protein/kg 75-120 g total protein 25-30 mL/kg 0052-8459 total fluid mLs NUTRITION DIAGNOSIS: * Swallowing difficulty R/T respiratory status as evidenced by trach/vent dep, PEG dep. * Increased kcal/prot needs R/T wound healing as evidenced by BL buttocks and sacral wound photos, pending evaluation. CURRENT TF:Glucerna 1.5 @ 30ml/hr x 24 hrs ENTERAL NUTRITION RECOMMENDATIONS: Jevity 1.2 @ 55ml/hr x 24 hrs + Prosource 1pkt QD to provide 1320ml, 1584kcal, 73g +11g prot, 1060ml free water - Rec to continue FURNITURE CRATER TF of Jevity 1.2 - Rec Jevity 1.2 @ goal rate of 55ml/hr x 24 hrs - Add Prosource 1pkt daily to meet protein needs - Flush per MD/ HOB over 30 degrees ADDITIONAL RECOMMENDATIONS: 1) Re-calibrated bedscale wt for accurate CBW 2) Wound healing: Add Vit C 250mg QD + Cristian 1pkt BID : f/up w/ WC eval 3) Monitor lytes, replete as needed (3) Feeding by G-tube Assessment & Plan: cont tube feeds as tolerated (4) Chronic vegetative state Assessment & Plan: incontinence of urine and stool. can soil dressings. nurses doing great job with monitoring and changing prn (5) Leukocytosis Walter Madera Jan 31, 2019 11:22
[2019-01-31 12:00] VITALS: BP 128/64
[2019-01-31 16:00] VITALS: BP 117/66
[2019-01-31] MEDS ORDERED: NS 275ml ONE (16:22)
--- NOTE | 2019-01-31 17:00 | NUR ---
received pt from RADHA HEATON ,LYING ON BED ON O2 35% TRACH COLLAR TOLERATE WELL POX 100% NO RESP DISTRESS, SR ON SCOPE ,H/C ON RT. F/A AND SITE IS CLEAR
--- NOTE | 2019-01-31 17:20 | Pulmonology Progress Note ---
Assessment/Plan Assessment/Plan Pulmonary Progress Note HPI This an 83-year-old female with history of tracheostomy, VDRF, feeding tube, admitted with Pneumonia, respiratory distress. She had increased work of breathing and had to be placed back on the ventilator. No reported fever chills but no nausea or vomiting. History is limited on this patient because she is nonverbal. Past Medical History: VDRF, Trach, G tube, Hypertension, Cardiac disease, Dementia, Previous CVA, TIA, Seizure disorder, previous cancer Not tolerating trach collar today - back on ACVC Impression: Sepsis syndrome previously Pneumonia VDRF, Trach, G tube, Hypertension, Cardiac disease, Dementia, Previous CVA, Seizure disorder, Respiratory failure with hypoxia Anemia Sacral ulcer Plan IV Antibiotics IVF maintain SNF meds vent support as is and try to wean as tolerated HHN O2 RX Monitor labs PUD and DVT prophylaxis Patient is a DNR. No CPR. agree with transfusion impression, plan, and exam edited and reviewed in detail care discussed with RN Subjective ROS Limited/Unobtainable: Yes Allergies: Coded Allergies: CODEINE (Verified Allergy, Unknown, HIVES, 09/15/09) Subjective currently on the ventilator some congestion supportive care noted Objective Vital Signs Noted Objective WDWN NAD contracted on vent reduced breath sounds bilaterally without rhonchi or wheeze [id number] without MRG NABS nontender no HSM no CC minimal nonfocal nonverbal trach and gt Laboratory Tests Noted Subjective ROS Limited/Unobtainable: No Allergies: Coded Allergies: CODEINE (Verified Allergy, Unknown, HIVES, 09/15/09) Objective Last 24 Hour Vital Signs Date Time Temp Pulse Resp B/P (MAP) Pulse Ox O2 Delivery O2 Flow Rate FiO2 01/31/19 16:00 74 01/31/19 16:00 8.0 30 01/31/19 16:00 Mechanical Ventilator 01/31/19 16:00 97.9 79 19 117/66 (83) 97 01/31/19 13:28 98 T-Piece 10.0 30 01/31/19 12:00 97.7 77 19 128/64 (85) 100 01/31/19 12:00 77 01/31/19 12:00 Mechanical Ventilator 01/31/19 12:00 8.0 30 01/31/19 08:54 78 123/72 01/31/19 08:00 8.0 30 01/31/19 08:00 97.0 78 19 123/72 (89) 100 01/31/19 08:00 Mechanical Ventilator 01/31/19 08:00 68 01/31/19 07:01 79 14 28 01/31/19 06:57 100 Mechanical Ventilator 28 01/31/19 04:00 8.0 30 01/31/19 04:00 Mechanical Ventilator 01/31/19 04:00 98.8 90 22 133/65 (87) 100 01/31/19 03:40 74 01/31/19 01:06 100 T-Piece 10.0 30 01/31/19 00:00 Mechanical Ventilator 01/31/19 00:00 8.0 30 01/31/19 00:00 97.9 93 22 140/80 (100) 100 01/31/19 00:00 78 01/30/19 20:00 Mechanical Ventilator 01/30/19 20:00 8.0 30 01/30/19 20:00 81 01/30/19 20:00 98.4 85 24 147/78 (101) 100 01/30/19 19:53 100 T-Piece 10.0 30 Intake and Output 01/30/19 01/31/19 19:00 07:00 Intake Total 587.5 ml 570.5 ml Output Total 400 ml Balance 187.5 ml 570.5 ml Free Water 60 ml IV Total 137.5 ml 210.5 ml Tube Feeding 390 ml 360 ml Output Urine Total 400 ml # Voids 3 # Bowel Movements 2 2 Laboratory Tests 01/31/19 03:55: White Blood Count 9.1, Red Blood Count 4.10L, Hemoglobin 10.9L, Hematocrit 35.2L , Mean Corpuscular Volume 86, Mean Corpuscular Hemoglobin 26.5L, Mean Corpuscular Hemoglobin Concent 30.9L, Red Cell Distribution Width 18.0H, Platelet Count 217, Mean Platelet Volume 5.9L, Neutrophils (%) (Auto) 59.0, Lymphocytes (%) (Auto) 28.6, Monocytes (%) (Auto) 7.6, Eosinophils (%) (Auto) 4.0H, Basophils (%) (Auto) 0.8, Sodium Level 143, Potassium Level 4.4, Chloride Level 106, Carbon Dioxide Level 28, Anion Gap 9, Blood Urea Nitrogen 14, Creatinine 1.1, Estimat Glomerular Filtration Rate , Glucose Level 71L, Calcium Level 9.7, Magnesium Level 2.1, Total Bilirubin 0.4, Aspartate Amino Transf (AST /SGOT) 42H, Alanine Aminotransferase (ALT/SGPT) 66, Alkaline Phosphatase 176H, Pro-B-Type Natriuretic Peptide 200H, Total Protein 8.7H, Albumin 2.9L, Globulin 5.8, Albumin/Globulin Ratio 0.5L Current Medications Medications (Trade) Dose Ordered Sig/Maicol Route PRN Reason Start Time Stop Time Status Last Admin Dose Admin Amlodipine Besylate (Norvasc) 10 mg DAILY GT 01/24/19 09:00 02/23/19 08:59 01/31/19 08:54 Ascorbic Acid (Vitamin C) 250 mg DAILY ORAL 01/25/19 09:00 02/24/19 08:59 01/31/19 08:55 Bisacodyl (Dulcolax) 10 mg PRN PRN RECTAL Constipation 01/24/19 05:30 02/23/19 05:29 Docusate Sodium (Colace) 100 mg DAILY PRN GT Constipation 01/24/19 05:45 02/23/19 05:29 Famotidine (Pepcid) 20 mg DAILY GT 01/24/19 09:00 02/23/19 08:59 01/31/19 08:53 Ferrous Sulfate (Feosol) 300 mg BID GT 01/24/19 09:00 02/23/19 08:59 01/31/19 08:53 Folic Acid (Folate) 1 mg DAILY GT 01/24/19 09:00 02/23/19 08:59 01/31/19 08:54 Heparin Sodium (Porcine) (Heparin 5000 units/ml) 5,000 units EVERY 12 HOURS SUBQ 01/24/19 09:00 02/23/19 08:59 01/31/19 08:56 Iron Sucrose 100 mg/Sodium Chloride 60 ml @ 240 mls/hr BEDTIME IV 01/28/19 21:00 02/01/19 21:14 01/30/19 20:45 Levetiracetam (Keppra) 750 mg Q12HR GT 01/28/19 21:00 02/23/19 08:59 01/31/19 08:52 Ondansetron HCl (Zofran) 4 mg Q6H PRN GT Nausea & Vomiting 01/24/19 05:30 02/23/19 05:29 Piperacillin Sod/ Tazobactam Sod 3.375 gm/Sodium Chloride 110 ml @ 27.5 mls/hr EVERY 8 HOURS IVPB 01/24/19 06:00 02/04/19 23:59 01/31/19 14:29 Polyethylene Glycol (Miralax) 17 gm DAILY GT 01/24/19 09:00 02/23/19 08:59 01/30/19 08:36 Trimethoprim/ Sulfamethoxazole (Bactrim-DS) 20 ml Q12HR NG 01/31/19 21:00 02/06/19 13:59 Bg Moffett MD Jan 31, 2019 17:20
--- NOTE | 2019-01-31 19:00 | NUR ---
REPORT GIVEN TO SHAQUILLE GALICIA
--- NOTE | 2019-01-31 19:05 | NUR ---
NURSE NOTES: Received patient from JEANNINE Noguera. Will continue plan of care.
[2019-01-31 20:00] VITALS: BP 121/69
[2019-01-31] MEDS: Iron Sucrose 100 MG in NS 55 ML IV SCH (21:16)
[2019-02-01] VITALS: BP 135/69
[2019-02-01 04:00] VITALS: BP 126/65
[2019-02-01] MEDS: Piperacillin/Tazobactam 3.375 GM in NS 110 ML IVPB SCH (05:26)
--- NOTE | 2019-02-01 07:26 | NUR ---
HAND-OFF: Report given to JEANNINE Suggs.
--- NOTE | 2019-02-01 07:27 | NUR ---
NURSE NOTES: Late entry: PT and report received from JEANNINE Elaine, PT received obtunded, no tracking of eyes, responds to pain, received with trach collar shiley 6; 8L; 35%, saturating at 100% no S/S of respiratory distress during morning rounds, VS stable. PT is running Jevity 1.2 @ 40cc, goal 55cc, will increase during shift, PT has purewick patent, collecting urine, lmft shows SR. PT has R-forearm 22g running TKO. Endorsed to report abnormal ABG results to MD Betina, and collect sputum sample for culturing. Will continue to monitor PT throughout shift.
[2019-02-01 08:00] VITALS: BP 136/75
--- NOTE | 2019-02-01 08:40 | NUR ---
NURSE NOTES: Sputum sample collected, will send to lab.
[2019-02-01] MEDS: Miralax 17gm pkt GT SCH (09:00)
--- NOTE | 2019-02-01 09:09 | General Progress Note ---
Assessment/Plan Problem List: (1) Seizure ICD Codes: R56.9 - Unspecified convulsions SNOMED: 94977453 (2) Anemia ICD Codes: D64.9 - Anemia, unspecified SNOMED: 269730011 Qualifiers: Qualified Codes: D64.9 - Anemia, unspecified (3) Sepsis ICD Codes: A41.9 - Sepsis, unspecified organism SNOMED: 90080280, 550368121 Qualifiers: Qualified Codes: A41.9 - Sepsis, unspecified organism (4) Respiratory failure with hypoxia ICD Codes: J96.91 - Respiratory failure, unspecified with hypoxia SNOMED: 82930891429913852 Qualifiers: Qualified Codes: J96.21 - Acute and chronic respiratory failure with hypoxia (5) HCAP (healthcare-associated pneumonia) ICD Codes: J18.9 - Pneumonia, unspecified organism SNOMED: 800217630, 614136135 (6) Sacral decubitus ulcer ICD Codes: L89.159 - Pressure ulcer of sacral region, unspecified stage SNOMED: 443044327 (7) HTN (hypertension) ICD Codes: I10 - Essential (primary) hypertension SNOMED: 66185805 (8) Chronic vegetative state ICD Codes: R40.3 - Persistent vegetative state SNOMED: 45165178 (9) Chronic respiratory failure ICD Codes: J96.10 - Chronic respiratory failure, unspecified whether with hypoxia or hypercapnia SNOMED: 72788413 (10) Limited mobility ICD Codes: Z74.09 - Other reduced mobility SNOMED: 4478849 Status: stable, progressing Assessment/Plan: wean vent resp rx suctioning as needed wean per pulm gt feeds monitor for aspiration iv abx per id follow up cultures monitor cxr Subjective ROS Limited/Unobtainable: No Constitutional: Reports: malaise, weakness HEENT: Reports: no symptoms Cardiovascular: Reports: no symptoms Respiratory: Reports: no symptoms Gastrointestinal/Abdominal: Reports: difficulty swallowing Genitourinary: Reports: no symptoms Neurologic/Psychiatric: Reports: pre-existing deficit Endocrine: Reports: no symptoms Hematologic/Lymphatic: Reports: no symptoms Allergies: Coded Allergies: CODEINE (Verified Allergy, Unknown, HIVES, 09/15/09) All Systems: reviewed and negative except above Subjective no events. poorly responsive. tolerating feeds. less congested. Objective Last 24 Hour Vital Signs Date Time Temp Pulse Resp B/P (MAP) Pulse Ox O2 Delivery O2 Flow Rate FiO2 02/01/19 08:00 8.0 35 02/01/19 08:00 97.7 96 28 136/75 (95) 100 02/01/19 07:20 99 T-Piece 10.0 30 02/01/19 04:00 8.0 30 02/01/19 04:00 Trach Collar 02/01/19 04:00 97.7 75 20 126/65 (85) 100 02/01/19 03:36 69 02/01/19 00:50 100 T-Piece 10.0 30 02/01/19 00:00 97.7 72 20 135/69 (91) 100 02/01/19 00:00 Trach Collar 01/31/19 23:37 85 01/31/19 20:00 98.7 79 18 121/69 (86) 98 01/31/19 20:00 8.0 30 01/31/19 20:00 Trach Collar 01/31/19 19:34 71 01/31/19 19:00 100 T-Piece 10.0 30 01/31/19 16:00 74 01/31/19 16:00 8.0 30 01/31/19 16:00 Mechanical Ventilator 01/31/19 16:00 97.9 79 19 117/66 (83) 97 01/31/19 13:28 98 T-Piece 10.0 30 01/31/19 12:00 97.7 77 19 128/64 (85) 100 01/31/19 12:00 77 01/31/19 12:00 Mechanical Ventilator 01/31/19 12:00 8.0 30 Intake and Output 01/31/19 02/01/19 19:00 07:00 Intake Total 579.5 ml 633.46 ml Output Total 600 ml 500 ml Balance -20.5 ml 133.46 ml Free Water 150 ml IV Total 69.5 ml 193.46 ml Tube Feeding 360 ml 340 ml Other 100 ml Output Urine Total 600 ml 500 ml # Voids 4 Height (Feet): 5 Height (Inches): 5.00 Weight (Pounds): 180 Objective General Appearance: WD/WN, confused Neck: supple Cardiovascular: normal rate, regular rhythm Respiratory/Chest: chest wall non-tender, rhonchi - bilaterally Abdomen: normal bowel sounds, non tender, soft, no organomegaly Edema: no edema noted Arm (L), no edema noted Arm (R), no edema noted Leg (L), no edema noted Leg (R), no edema noted Pedal (L), no edema noted Pedal (R), no edema noted Generalized Neurologic: disoriented, unresponsive, aphasia Irvin Beltrán MD Feb 01, 2019 09:09
[2019-02-01] MEDS: Bactrim Susp 20ml NG SCH (09:21)
[2019-02-01] MEDS: levETIRAcetam 500mg/5ml Liquid GT SCH ×2 (09:21→20:25)
[2019-02-01] MEDS: Heparin 5000 units/ml inj SUBQ SCH ×2 (09:21→20:26)
[2019-02-01] MEDS: Ferrous Sulfate 300 MG/5 ML UDC GT SCH ×2 (09:22→17:50)
[2019-02-01] MEDS: Ascorbic Acid 500mg tab ORAL SCH (09:22)
[2019-02-01] MEDS ORDERED: NS 275ml ONE (09:57)
[2019-02-01] MEDS ORDERED: Tubing IV Secondary IV ONE (09:57)
--- NOTE | 2019-02-01 10:14 | NUR ---
NURSE NOTES: ABG results are WNL. Sputum culture collected and sent. Will continue with plan of care for PT.
[2019-02-01] MEDS ORDERED: Albuterol/Ipratropium 3ml neb HHN SCH (11:00)
--- NOTE | 2019-02-01 11:07 | Infectious Diseases Prog Note ---
Assessment/Plan Assessment/Plan A 1. Acinetobacter, pseudomonas & Klebsiella pneumonia 2. respiratory failure 3. hypertension 4. CVA 5. dementia 6. sacral decubitus ulcer 7. rectal VRE colonization 8. Anemia P 1. Discontinue Zosyn, Add Bactrim 2. Start on Polymyxin B Subjective ROS Limited/Unobtainable: Yes Constitutional: Denies: fever Allergies: Coded Allergies: CODEINE (Verified Allergy, Unknown, HIVES, 09/15/09) Objective Vital Signs Last 24 Hour Vital Signs Date Time Temp Pulse Resp B/P (MAP) Pulse Ox O2 Delivery O2 Flow Rate FiO2 02/01/19 09:22 96 136/75 02/01/19 08:00 8.0 35 02/01/19 08:00 97.7 96 28 136/75 (95) 100 02/01/19 07:53 91 02/01/19 07:20 99 T-Piece 10.0 30 02/01/19 04:00 8.0 30 02/01/19 04:00 Trach Collar 02/01/19 04:00 97.7 75 20 126/65 (85) 100 02/01/19 03:36 69 02/01/19 00:50 100 T-Piece 10.0 30 02/01/19 00:00 97.7 72 20 135/69 (91) 100 02/01/19 00:00 Trach Collar 01/31/19 23:37 85 01/31/19 20:00 98.7 79 18 121/69 (86) 98 01/31/19 20:00 8.0 30 01/31/19 20:00 Trach Collar 01/31/19 19:34 71 01/31/19 19:00 100 T-Piece 10.0 30 01/31/19 16:00 74 01/31/19 16:00 8.0 30 01/31/19 16:00 Mechanical Ventilator 01/31/19 16:00 97.9 79 19 117/66 (83) 97 01/31/19 13:28 98 T-Piece 10.0 30 01/31/19 12:00 97.7 77 19 128/64 (85) 100 01/31/19 12:00 77 01/31/19 12:00 Mechanical Ventilator 01/31/19 12:00 8.0 30 Height (Feet): 5 Height (Inches): 5.00 Weight (Pounds): 180 HEENT: status post trach Respiratory/Chest: crackles/rales, other - on T bar, secretions in tracheostomy tube Cardiovascular: normal rate Abdomen: soft, non tender, other - GT feeding Extremities: no edema Neurologic/Psychiatric: unresponsiveness Laboratory Tests Test 02/01/19 06:54 Arterial Blood pH 7.383 (7.350-7.450) Arterial Blood Partial Pressure CO2 44.7 mmHg (35.0-45.0) Arterial Blood Partial Pressure O2 103.3 mmHg (75.0-100.0) H Arterial Blood HCO3 26.0 mmol/L (22.0-26.0) Arterial Blood Oxygen Saturation 97.4 % (95-100) Arterial Blood Base Excess 0.7 (-2-2) Murphy Test Positive Current Medications Medications (Trade) Dose Ordered Sig/Maicol Route PRN Reason Start Time Stop Time Status Last Admin Dose Admin Acetylcysteine (Mucomyst) 100 mg Q6HRT [facility] 02/01/19 13:00 03/03/19 12:59 Albuterol/ Ipratropium (Albuterol/ Ipratropium) 3 ml Q4HRT [facility] 02/01/19 11:00 02/06/19 10:59 Amlodipine Besylate (Norvasc) 10 mg DAILY GT 01/24/19 09:00 02/23/19 08:59 02/01/19 09:22 Ascorbic Acid (Vitamin C) 250 mg DAILY ORAL 01/25/19 09:00 02/24/19 08:59 02/01/19 09:22 Bisacodyl (Dulcolax) 10 mg PRN PRN RECTAL Constipation 01/24/19 05:30 02/23/19 05:29 Docusate Sodium (Colace) 100 mg DAILY PRN GT Constipation 01/24/19 05:45 02/23/19 05:29 Famotidine (Pepcid) 20 mg DAILY GT 01/24/19 09:00 02/23/19 08:59 02/01/19 09:21 Ferrous Sulfate (Feosol) 300 mg BID GT 01/24/19 09:00 02/23/19 08:59 02/01/19 09:22 Folic Acid (Folate) 1 mg DAILY GT 01/24/19 09:00 02/23/19 08:59 02/01/19 09:22 Heparin Sodium (Porcine) (Heparin 5000 units/ml) 5,000 units EVERY 12 HOURS SUBQ 01/24/19 09:00 02/23/19 08:59 02/01/19 09:21 Iron Sucrose 100 mg/Sodium Chloride 60 ml @ 240 mls/hr BEDTIME IV 01/28/19 21:00 02/01/19 21:14 01/31/19 21:16 Levetiracetam (Keppra) 750 mg Q12HR GT 01/28/19 21:00 02/23/19 08:59 02/01/19 09:21 Ondansetron HCl (Zofran) 4 mg Q6H PRN GT Nausea & Vomiting 01/24/19 05:30 02/23/19 05:29 Piperacillin Sod/ Tazobactam Sod 3.375 gm/Sodium Chloride 110 ml @ 27.5 mls/hr EVERY 8 HOURS IVPB 01/24/19 06:00 02/04/19 23:59 02/01/19 05:26 Polyethylene Glycol (Miralax) 17 gm DAILY GT 01/24/19 09:00 02/23/19 08:59 01/30/19 08:36 Trimethoprim/ Sulfamethoxazole (Bactrim-DS) 20 ml Q12HR NG 01/31/19 21:00 02/06/19 13:59 02/01/19 09:21 Chauncey Liriano MD Feb 01, 2019 11:07
[2019-02-01 12:00] VITALS: BP 112/60
[2019-02-01] MEDS ORDERED: Polymyxin B Sulfate 500,000 UNITS in D5W 500ml 550 ML IV SCH (12:00)
--- NOTE | 2019-02-01 12:55 | NUR ---
NURSE NOTES: MD Santy made rounds while PT was being cleaned, updated and showed wounds on PT, was told to Love/C Summer.
--- NOTE | 2019-02-01 13:22 | Surgery Progress Note ---
Surgery Progress Note Subjective Additional Comments no acute events large bm wounds saturated incontinence on wounds dressings changed wounds cared for Objective Last 24 Hour Vital Signs Date Time Temp Pulse Resp B/P (MAP) Pulse Ox O2 Delivery O2 Flow Rate FiO2 02/01/19 12:06 95 02/01/19 12:00 Trach Collar 02/01/19 12:00 99.7 90 24 112/60 (77) 100 02/01/19 12:00 8.0 35 02/01/19 09:22 96 136/75 02/01/19 08:00 8.0 35 02/01/19 08:00 97.7 96 28 136/75 (95) 100 02/01/19 08:00 Trach Collar 02/01/19 07:53 91 02/01/19 07:20 99 T-Piece 10.0 30 02/01/19 04:00 8.0 30 02/01/19 04:00 Trach Collar 02/01/19 04:00 97.7 75 20 126/65 (85) 100 02/01/19 03:36 69 02/01/19 00:50 100 T-Piece 10.0 30 02/01/19 00:00 97.7 72 20 135/69 (91) 100 02/01/19 00:00 Trach Collar 01/31/19 23:37 85 01/31/19 20:00 98.7 79 18 121/69 (86) 98 01/31/19 20:00 8.0 30 01/31/19 20:00 Trach Collar 01/31/19 19:34 71 01/31/19 19:00 100 T-Piece 10.0 30 01/31/19 16:00 74 01/31/19 16:00 8.0 30 01/31/19 16:00 Mechanical Ventilator 01/31/19 16:00 97.9 79 19 117/66 (83) 97 01/31/19 13:28 98 T-Piece 10.0 30 I&O Intake and Output 01/31/19 02/01/19 19:00 07:00 Intake Total 579.5 ml 633.46 ml Output Total 600 ml 500 ml Balance -20.5 ml 133.46 ml Free Water 150 ml IV Total 69.5 ml 193.46 ml Tube Feeding 360 ml 340 ml Other 100 ml Output Urine Total 600 ml 500 ml # Voids 4 Dressing: saturated Wound: other Drains: other Cardiovascular: RSR Respiratory: decreased breath sounds Abdomen: soft, present bowel sounds, non-distended Extremities: no tenderness, no cyanosis Laboratory Tests Test 02/01/19 06:54 Arterial Blood pH 7.383 (7.350-7.450) Arterial Blood Partial Pressure CO2 44.7 mmHg (35.0-45.0) Arterial Blood Partial Pressure O2 103.3 mmHg (75.0-100.0) H Arterial Blood HCO3 26.0 mmol/L (22.0-26.0) Arterial Blood Oxygen Saturation 97.4 % (95-100) Arterial Blood Base Excess 0.7 (-2-2) Murphy Test Positive Plan Problems: (1) Sacral decubitus ulcer Assessment & Plan: This is a 83-year-old female with multiple medical committees that is currently admitted for medical care and management and identified to have multiple wounds requiring care. On admission patient noted to have a resolved sacral decubitus ulcer. Has had prior care and is well-healed at this time. Will ensure it does not open up again. Patient has a right ischial decubitus ulcer that is resolved. Scar intact and well formed. Will monitor to ensure it does not open up again. Patient has a left ischial decubitus ulcer that can be identified to be stage IV with palpable bone that has been resolving as noted by the periwound tissue and scar but open area approximately 1 cm x 1.5 cm few millimeters deep to bone identified. Unsure if this is been to be completely healed prior and has since opened or if has been healing at this level. No foul odor no drainage was unsure local wound care until healed Bilateral heels soft without signs of injury Treatment plan: Please apply skin protectant and optifoam to sacral area. Change every 3 days Please apply skin protectant and optifoam to right ischial area. Change every 3 days Please apply Thera honey infused gauze to small opening in the left ischial wound bed followed by skin protectant in the periwound and up to foam. Change daily as needed saturation Offload pressure from heels with pillow Air soft mattress Turn every 2 hours Nutritional optimization We will monitor follow with recommendations (2) Sepsis Assessment & Plan: IV abx as per ID trend labs wounds unlikely etiology likely respiratory DAILY ESTIMATED NEEDS: Needs based on Critical care, wounds/ 60kg adj 22-28 kcals/kg 0061-6008 total kcals 1.25-2 g protein/kg 75-120 g total protein 25-30 mL/kg 0210-0202 total fluid mLs NUTRITION DIAGNOSIS: * Swallowing difficulty R/T respiratory status as evidenced by trach/vent dep, PEG dep. * Increased kcal/prot needs R/T wound healing as evidenced by BL buttocks and sacral wound photos, pending evaluation. CURRENT TF:Glucerna 1.5 @ 30ml/hr x 24 hrs ENTERAL NUTRITION RECOMMENDATIONS: Jevity 1.2 @ 55ml/hr x 24 hrs + Prosource 1pkt QD to provide 1320ml, 1584kcal, 73g +11g prot, 1060ml free water - Rec to continue [employer] TF of Jevity 1.2 - Rec Jevity 1.2 @ goal rate of 55ml/hr x 24 hrs - Add Prosource 1pkt daily to meet protein needs - Flush per MD/ HOB over 30 degrees ADDITIONAL RECOMMENDATIONS: 1) Re-calibrated bedscale wt for accurate CBW 2) Wound healing: Add Vit C 250mg QD + Cristian 1pkt BID : f/up w/ WC eval 3) Monitor lytes, replete as needed (3) Feeding by G-tube Assessment & Plan: cont tube feeds as tolerated (4) Chronic vegetative state Assessment & Plan: incontinence of urine and stool. can soil dressings. nurses doing great job with monitoring and changing prn (5) Leukocytosis Walter Madera Feb 01, 2019 13:22
--- NOTE | 2019-02-01 15:24 | Pulmonology Progress Note ---
Assessment/Plan Assessment/Plan Pulmonary Progress Note HPI This an 83-year-old female with history of tracheostomy, VDRF, feeding tube, admitted with Pneumonia, respiratory distress. She had increased work of breathing and had to be placed back on the ventilator. No reported fever chills but no nausea or vomiting. History is limited on this patient because she is nonverbal. Past Medical History: VDRF, Trach, G tube, Hypertension, Cardiac disease, Dementia, Previous CVA, TIA, Seizure disorder, previous cancer Not tolerating trach collar today - back on ACVC Impression: Sepsis syndrome previously Pneumonia VDRF, Trach, G tube, Hypertension, Cardiac disease, Dementia, Previous CVA, Seizure disorder, Respiratory failure with hypoxia Anemia Sacral ulcer Plan IV Antibiotics IVF maintain SNF meds TC as tolerated, ABG adequate on TC today HHN O2 RX Monitor labs PUD and DVT prophylaxis Patient is a DNR. No CPR. agree with transfusion impression, plan, and exam edited and reviewed in detail care discussed with RN Subjective ROS Limited/Unobtainable: Yes Allergies: Coded Allergies: CODEINE (Verified Allergy, Unknown, HIVES, 09/15/09) Subjective currently on the ventilator some congestion supportive care noted Objective Vital Signs Noted Objective WDWN NAD contracted on vent reduced breath sounds bilaterally without rhonchi or wheeze [id number] without MRG NABS nontender no HSM no CC minimal nonfocal nonverbal trach and gt Laboratory Tests Noted Subjective ROS Limited/Unobtainable: No Allergies: Coded Allergies: CODEINE (Verified Allergy, Unknown, HIVES, 09/15/09) Objective Last 24 Hour Vital Signs Date Time Temp Pulse Resp B/P (MAP) Pulse Ox O2 Delivery O2 Flow Rate FiO2 02/01/19 13:43 100 T-Piece 10.0 30 02/01/19 12:06 95 02/01/19 12:00 Trach Collar 02/01/19 12:00 99.7 90 24 112/60 (77) 100 02/01/19 12:00 8.0 35 02/01/19 09:22 96 136/75 02/01/19 08:00 8.0 35 02/01/19 08:00 97.7 96 28 136/75 (95) 100 02/01/19 08:00 Trach Collar 02/01/19 07:53 91 02/01/19 07:20 99 T-Piece 10.0 30 02/01/19 04:00 8.0 30 02/01/19 04:00 Trach Collar 02/01/19 04:00 97.7 75 20 126/65 (85) 100 02/01/19 03:36 69 02/01/19 00:50 100 T-Piece 10.0 30 02/01/19 00:00 97.7 72 20 135/69 (91) 100 02/01/19 00:00 Trach Collar 01/31/19 23:37 85 01/31/19 20:00 98.7 79 18 121/69 (86) 98 01/31/19 20:00 8.0 30 01/31/19 20:00 Trach Collar 01/31/19 19:34 71 01/31/19 19:00 100 T-Piece 10.0 30 01/31/19 16:00 74 01/31/19 16:00 8.0 30 01/31/19 16:00 Mechanical Ventilator 01/31/19 16:00 97.9 79 19 117/66 (83) 97 Intake and Output 01/31/19 02/01/19 19:00 07:00 Intake Total 579.5 ml 633.46 ml Output Total 600 ml 500 ml Balance -20.5 ml 133.46 ml Free Water 150 ml IV Total 69.5 ml 193.46 ml Tube Feeding 360 ml 340 ml Other 100 ml Output Urine Total 600 ml 500 ml # Voids 4 Laboratory Tests 02/01/19 06:54: Arterial Blood pH 7.383, Arterial Blood Partial Pressure CO2 44.7, Arterial Blood Partial Pressure O2 103.3H, Arterial Blood HCO3 26.0, Arterial Blood Oxygen Saturation 97.4, Arterial Blood Base Excess 0.7, Murphy Test Positive Current Medications Medications (Trade) Dose Ordered Sig/Maicol Route PRN Reason Start Time Stop Time Status Last Admin Dose Admin Acetylcysteine (Mucomyst) 100 mg Q4HRT [facility] 02/01/19 15:00 03/03/19 12:59 Albuterol/ Ipratropium (Albuterol/ Ipratropium) 3 ml Q4HRT [facility] 02/01/19 15:00 02/06/19 14:59 Amlodipine Besylate (Norvasc) 10 mg DAILY GT 01/24/19 09:00 02/23/19 08:59 02/01/19 09:22 Ascorbic Acid (Vitamin C) 250 mg DAILY ORAL 01/25/19 09:00 02/24/19 08:59 02/01/19 09:22 Bisacodyl (Dulcolax) 10 mg PRN PRN RECTAL Constipation 01/24/19 05:30 02/23/19 05:29 Docusate Sodium (Colace) 100 mg DAILY PRN GT Constipation 01/24/19 05:45 02/23/19 05:29 Famotidine (Pepcid) 20 mg DAILY GT 01/24/19 09:00 02/23/19 08:59 02/01/19 09:21 Ferrous Sulfate (Feosol) 300 mg BID GT 01/24/19 09:00 02/23/19 08:59 02/01/19 09:22 Folic Acid (Folate) 1 mg DAILY GT 01/24/19 09:00 02/23/19 08:59 02/01/19 09:22 Heparin Sodium (Porcine) (Heparin 5000 units/ml) 5,000 units EVERY 12 HOURS SUBQ 01/24/19 09:00 02/23/19 08:59 02/01/19 09:21 Iron Sucrose 100 mg/Sodium Chloride 60 ml @ 240 mls/hr BEDTIME IV 01/28/19 21:00 02/01/19 21:14 01/31/19 21:16 Levetiracetam (Keppra) 750 mg Q12HR GT 01/28/19 21:00 02/23/19 08:59 02/01/19 09:21 Ondansetron HCl (Zofran) 4 mg Q6H PRN GT Nausea & Vomiting 01/24/19 05:30 02/23/19 05:29 Polymyxin B Sulfate 081982 units/Dextrose 550 ml @ 550 mls/hr EVERY 12 HOURS IV 02/01/19 12:00 02/08/19 11:59 02/01/19 12:03 Bg Moffett MD Feb 01, 2019 15:24
[2019-02-01] MEDS: Albuterol/Ipratropium 3ml neb HHN SCH ×3 (15:48→23:43)
[2019-02-01 16:00] VITALS: BP 143/97
[2019-02-01] MEDS: POLYMYXIN B SULFATE IV SCH (16:45)
[2019-02-01] MEDS: D5W IV SCH (16:45)
--- NOTE | 2019-02-01 18:32 | NUR ---
NURSE NOTES: Feeding stopped as she spitted up clear mucous, oral suctioning done. Will continue to monitor PT.
--- NOTE | 2019-02-01 19:02 | NUR ---
HAND-OFF: Report and PT given to JEANNINE Elaine.
--- NOTE | 2019-02-01 19:05 | NUR ---
NURSE NOTES: Received patient from JEANNINE Suggs. Will continue plan of care.
[2019-02-01 20:00] VITALS: BP 123/66
[2019-02-01] MEDS: Iron Sucrose 100 MG in NS 55 ML IV SCH (20:26)
--- NOTE | 2019-02-01 20:30 | Progress Note ---
DATE: 01/31/2019 CARDIOLOGY PROGRESS NOTE Late entry for 01/31/2019. SUBJECTIVE: The patient remains on ventilator support. No new distress. Monitored sinus, rare ectopics. OBJECTIVE: VITAL SIGNS: Blood pressure 128/64, pulse 77, respirations 19, and afebrile. LUNGS: Bilateral breath sounds. HEART: Regular rhythm and rate. Normal S1 and S2 with no murmur. ABDOMEN: Soft. G-tube site intact. EXTREMITIES: Trace edema. LABORATORY DATA: White count 9 and hemoglobin 10.9. Sodium 143, potassium 4.4, bicarb 28, BUN 14, and creatinine 1.1. Natriuretic peptide is 200. ABG, pH 7.38, pCO2 45, and pO2 103. IMPRESSION: 1. Acute on chronic diastolic congestive heart failure is clinically compensated. 2. Ventilator-dependent respiratory failure. 3. Healthcare-acquired pneumonia. 4. Advanced dementia. 5. Recovering sepsis. 6. Hypertensive heart disease. PLAN: 1. Continue same cardiovascular regimen. 2. Antimicrobials per Infectious Disease loan consultant. 3. Monitor volume status and cardiorenal parameters. 4. Periodic diuresis based on clinical parameters. Bg Hagen M.D. DR: Shaquille JOB#: [id number] CC:
--- NOTE | 2019-02-01 20:45 | Progress Note ---
DATE: 02/01/2019 CARDIOLOGY PROGRESS NOTE SUBJECTIVE: No new distress. Remains on ventilator support. Continues with antimicrobials, was placed on trach collar late last night. OBJECTIVE: VITAL SIGNS: T-max is 99.7 degrees. HEENT: Thin secretions. LUNGS: Bilateral breath sounds. HEART: Regular rhythm and rate. Normal S1 and S2. ABDOMEN: Soft. G-tube intact. EXTREMITIES: No edema. IMPRESSION: Overall improving, remains high risk and tenuous. PLAN: 1. We will continue monitoring cardiovascular parameters. 2. Adjust antifailure regimen and antihypertensives as needed. 3. Antimicrobials per Infectious Disease oracle database consultant. 4. We will follow. Bg Hagen M.D. DR: Shaquille JOB#: [id number] CC:
[2019-02-02] VITALS: BP 137/70
[2019-02-02] MEDS: Albuterol/Ipratropium 3ml neb HHN SCH ×6 (03:10→23:54)
[2019-02-02 04:00] VITALS: BP 156/74
[2019-02-02 05:04] LABS: BASOPHILS % (AUTO) 0.7 % (0.0-2.0); HEMOGLOBIN 10.7 G/DL (12.0-16.0); MEAN CORPUSCULAR VOLUME 86 FL (80-99); MONOCYTES % (AUTO) 6.7 % (1.0-10.0); NEUTROPHILS % (AUTO) 73.7 % (45.0-75.0); PLATELET COUNT 226 K/UL (150-450); RED BLOOD COUNT 3.98 M/UL (4.20-5.40); RED CELL DISTRIBUTION WIDTH 17.8 % (11.6-14.8); WHITE BLOOD COUNT 15.8 K/UL (4.8-10.8)
[2019-02-02 05:28] LABS: ALANINE AMINOTRANSFERASE 47 U/L (12-78); ALBUMIN 2.5 G/DL (3.4-5.0); ALBUMIN/GLOBULIN RATIO 0.5 (1.0-2.7); ALKALINE PHOSPHATASE 140 U/L (46-116); ANION GAP 9 mmol/L (5-15); ASPARTATE AMINO TRANSFERASE 45 U/L (15-37); BILIRUBIN,TOTAL 0.2 MG/DL (0.2-1.0); BLOOD UREA NITROGEN 23 mg/dL (7-18); CALCIUM 8.6 MG/DL (8.5-10.1); CARBON DIOXIDE 26 MMOL/L (21-32); CHLORIDE 102 MMOL/L (98-107); CREATININE 1.2 MG/DL (0.55-1.30); POTASSIUM 4.1 MMOL/L (3.5-5.1); SODIUM 136 MMOL/L (136-145)
--- NOTE | 2019-02-02 06:47 | NUR ---
NURSE NOTES: Left message for Dr. Liriano regarding patient's WBC resulting this AM of 15.8 which increased from 9.1 as of 01/31. Left call back number.
--- NOTE | 2019-02-02 07:20 | NUR ---
HAND-OFF: Report given to JEANNINE Schneider.
--- NOTE | 2019-02-02 07:21 | NUR ---
NURSE NOTES: Received patient in bed. In no apparent distress. On Tpiece at Fio2 30%. No respiratory distress. On continuous GTF. Contact isolation observed. Will continue plan of care.
[2019-02-02 08:00] VITALS: BP 134/65
--- NOTE | 2019-02-02 08:04 | Pulmonology Progress Note ---
Assessment/Plan Assessment/Plan Impression: Sepsis syndrome Pneumonia VDRF, Trach, G tube, Hypertension, Cardiac disease, Dementia, Previous CVA, Seizure disorder, Respiratory failure with hypoxia Anemia Sacral ulcer Plan ID noted SNF meds off vent as able; currently on AC neb therapy suction and keep clear O2 RX Monitor labs PUD and DVT prophylaxis Patient is a DNR. No CPR. dc to snf soon impression, plan, and exam edited and reviewed in detail care discussed with RN Subjective ROS Limited/Unobtainable: Yes Allergies: Coded Allergies: CODEINE (Verified Allergy, Unknown, HIVES, 09/15/09) Subjective currently on the ventilator some congestion difficulty weaning supportive care noted orders in place 72 hour stay reviewed Objective Last 24 Hour Vital Signs Date Time Temp Pulse Resp B/P (MAP) Pulse Ox O2 Delivery O2 Flow Rate FiO2 02/02/19 06:56 102 20 100 T-Piece 10.0 30 99 20 96 02/02/19 06:56 96 T-Piece 10.0 30 02/02/19 04:00 8.0 35 02/02/19 04:00 97.2 113 22 156/74 (101) 94 02/02/19 04:00 T-piece 02/02/19 03:42 96 02/02/19 03:10 91 20 100 T-Piece 10.0 30 88 20 98 02/02/19 01:15 100 T-Piece 10.0 30 02/02/19 00:00 T-piece 02/02/19 00:00 97.5 95 20 137/70 (92) 100 02/02/19 00:00 98 02/01/19 23:43 90 20 100 T-Piece 10.0 30 84 18 99 02/01/19 20:00 87 02/01/19 20:00 8.0 35 02/01/19 20:00 97.7 88 20 123/66 (85) 100 02/01/19 20:00 T-piece 02/01/19 19:17 89 20 100 T-Piece 10.0 30 88 20 100 02/01/19 19:17 100 T-Piece 10.0 30 02/01/19 16:00 97.3 89 24 143/97 (112) 100 02/01/19 16:00 8.0 35 02/01/19 16:00 T-piece 02/01/19 16:00 87 02/01/19 15:49 87 24 100 T-Piece 10.0 30 88 24 100 02/01/19 13:43 100 T-Piece 10.0 30 02/01/19 12:06 95 02/01/19 12:00 T-piece 02/01/19 12:00 99.7 90 24 112/60 (77) 100 02/01/19 12:00 8.0 35 02/01/19 09:22 96 136/75 Intake and Output 02/01/19 02/02/19 19:00 07:00 Intake Total 1666.860 ml 320 ml Output Total 100 ml 300 ml Balance 1566.860 ml 20 ml Free Water 60 ml IV Total 1166.860 ml 60 ml Tube Feeding 500 ml 200 ml Output Urine Total 100 ml 300 ml # Bowel Movements 2 2 Objective WDWN NAD contracted on vent reduced breath sounds bilaterally without rhonchi or wheeze [id number] without MRG NABS nontender no HSM no CC minimal nonfocal nonverbal trach and gt Laboratory Tests 02/02/19 03:05: White Blood Count 15.8H, Red Blood Count 3.98L, Hemoglobin 10.7L, Hematocrit 34.0L, Mean Corpuscular Volume 86, Mean Corpuscular Hemoglobin 26.8L, Mean Corpuscular Hemoglobin Concent 31.3L, Red Cell Distribution Width 17.8H, Platelet Count 226, Mean Platelet Volume 5.4L, Neutrophils (%) (Auto) 73.7, Lymphocytes (%) (Auto) 17.0L, Monocytes (%) (Auto) 6.7, Eosinophils (%) (Auto) 2.0, Basophils (%) (Auto) 0.7, Sodium Level 136, Potassium Level 4.1, Chloride Level 102, Carbon Dioxide Level 26, Anion Gap 9, Blood Urea Nitrogen 23H, Creatinine 1.2, Estimat Glomerular Filtration Rate , Glucose Level 113H, Calcium Level 8.6, Total Bilirubin 0.2, Aspartate Amino Transf (AST/SGOT) 45H, Alanine Aminotransferase (ALT/SGPT) 47, Alkaline Phosphatase 140H, Total Protein 7.6, Albumin 2.5L, Globulin 5.1, Albumin/Globulin Ratio 0.5L Current Medications Medications (Trade) Dose Ordered Sig/Maicol Route PRN Reason Start Time Stop Time Status Last Admin Dose Admin Acetylcysteine (Mucomyst) 100 mg Q4HRT [facility] 02/01/19 15:00 03/03/19 12:59 02/02/19 06:56 Albuterol/ Ipratropium (Albuterol/ Ipratropium) 3 ml Q4HRT [facility] 02/01/19 15:00 02/06/19 14:59 02/02/19 06:56 Amlodipine Besylate (Norvasc) 10 mg DAILY GT 01/24/19 09:00 02/23/19 08:59 02/01/19 09:22 Ascorbic Acid (Vitamin C) 250 mg DAILY ORAL 01/25/19 09:00 02/24/19 08:59 02/01/19 09:22 Bisacodyl (Dulcolax) 10 mg PRN PRN RECTAL Constipation 01/24/19 05:30 02/23/19 05:29 Docusate Sodium (Colace) 100 mg DAILY PRN GT Constipation 01/24/19 05:45 02/23/19 05:29 Famotidine (Pepcid) 20 mg DAILY GT 01/24/19 09:00 02/23/19 08:59 02/01/19 09:21 Ferrous Sulfate (Feosol) 300 mg BID GT 01/24/19 09:00 02/23/19 08:59 02/01/19 17:50 Folic Acid (Folate) 1 mg DAILY GT 01/24/19 09:00 02/23/19 08:59 02/01/19 09:22 Heparin Sodium (Porcine) (Heparin 5000 units/ml) 5,000 units EVERY 12 HOURS SUBQ 01/24/19 09:00 02/23/19 08:59 02/01/19 20:26 Levetiracetam (Keppra) 750 mg Q12HR GT 01/28/19 21:00 02/23/19 08:59 02/01/19 20:25 Ondansetron HCl (Zofran) 4 mg Q6H PRN GT Nausea & Vomiting 01/24/19 05:30 02/23/19 05:29 Polymyxin B Sulfate 3296798 units/Dextrose 550 ml @ 366.667 mls/hr EVERY 12 HOURS IV 02/01/19 17:00 02/08/19 16:59 02/01/19 16:45 Amaury Chan MD Feb 02, 2019 08:04
[2019-02-02] MEDS: D5W IV SCH ×2 (08:49→21:09)
[2019-02-02] MEDS: POLYMYXIN B SULFATE IV SCH ×2 (08:49→21:09)
[2019-02-02] MEDS: Ferrous Sulfate 300 MG/5 ML UDC GT SCH ×2 (08:53→17:35)
[2019-02-02] MEDS: levETIRAcetam 500mg/5ml Liquid GT SCH ×2 (08:53→20:32)
[2019-02-02] MEDS: Ascorbic Acid 500mg tab ORAL SCH (08:54)
[2019-02-02] MEDS: Heparin 5000 units/ml inj SUBQ SCH ×2 (08:54→20:34)
--- NOTE | 2019-02-02 10:38 | General Progress Note ---
Assessment/Plan Problem List: (1) Seizure ICD Codes: R56.9 - Unspecified convulsions SNOMED: 54958528 (2) Anemia ICD Codes: D64.9 - Anemia, unspecified SNOMED: 554510054 Qualifiers: Qualified Codes: D64.9 - Anemia, unspecified (3) Sepsis ICD Codes: A41.9 - Sepsis, unspecified organism SNOMED: 34656232, 936314274 Qualifiers: Qualified Codes: A41.9 - Sepsis, unspecified organism (4) Respiratory failure with hypoxia ICD Codes: J96.91 - Respiratory failure, unspecified with hypoxia SNOMED: 64982643070010173 Qualifiers: Qualified Codes: J96.21 - Acute and chronic respiratory failure with hypoxia (5) HCAP (healthcare-associated pneumonia) ICD Codes: J18.9 - Pneumonia, unspecified organism SNOMED: 169381088, 112372430 (6) Sacral decubitus ulcer ICD Codes: L89.159 - Pressure ulcer of sacral region, unspecified stage SNOMED: 560600997 (7) HTN (hypertension) ICD Codes: I10 - Essential (primary) hypertension SNOMED: 67963110 (8) Chronic vegetative state ICD Codes: R40.3 - Persistent vegetative state SNOMED: 75861134 (9) Chronic respiratory failure ICD Codes: J96.10 - Chronic respiratory failure, unspecified whether with hypoxia or hypercapnia SNOMED: 83750082 (10) Limited mobility ICD Codes: Z74.09 - Other reduced mobility SNOMED: 6065710 Status: stable, progressing Assessment/Plan: wean vent resp rx suctioning as needed wean per pulm gt feeds monitor for aspiration iv abx per id follow up cultures check cxr and urine studies Subjective ROS Limited/Unobtainable: No Constitutional: Reports: malaise, weakness HEENT: Reports: no symptoms Cardiovascular: Reports: no symptoms Respiratory: Reports: shortness of breath Gastrointestinal/Abdominal: Reports: no symptoms Genitourinary: Reports: no symptoms Neurologic/Psychiatric: Reports: pre-existing deficit Endocrine: Reports: no symptoms Hematologic/Lymphatic: Reports: no symptoms Allergies: Coded Allergies: CODEINE (Verified Allergy, Unknown, HIVES, 09/15/09) All Systems: reviewed and negative except above Subjective no events. poorly responsive. tolerating feeds. less congested. wbc elevated. on abx. Objective Last 24 Hour Vital Signs Date Time Temp Pulse Resp B/P (MAP) Pulse Ox O2 Delivery O2 Flow Rate FiO2 02/02/19 08:53 109 134/65 02/02/19 08:00 T-piece 02/02/19 08:00 8.0 30 02/02/19 08:00 98.1 109 24 134/65 (88) 100 02/02/19 07:50 105 02/02/19 06:56 102 20 100 T-Piece 10.0 30 99 20 96 02/02/19 06:56 96 T-Piece 10.0 30 02/02/19 04:00 8.0 35 02/02/19 04:00 97.2 113 22 156/74 (101) 94 02/02/19 04:00 T-piece 02/02/19 03:42 96 02/02/19 03:10 91 20 100 T-Piece 10.0 30 88 20 98 02/02/19 01:15 100 T-Piece 10.0 30 02/02/19 00:00 T-piece 02/02/19 00:00 97.5 95 20 137/70 (92) 100 02/02/19 00:00 98 02/01/19 23:43 90 20 100 T-Piece 10.0 30 84 18 99 02/01/19 20:00 87 02/01/19 20:00 8.0 35 02/01/19 20:00 97.7 88 20 123/66 (85) 100 02/01/19 20:00 T-piece 02/01/19 19:17 89 20 100 T-Piece 10.0 30 88 20 100 02/01/19 19:17 100 T-Piece 10.0 30 02/01/19 16:00 97.3 89 24 143/97 (112) 100 02/01/19 16:00 8.0 35 02/01/19 16:00 T-piece 02/01/19 16:00 87 02/01/19 15:49 87 24 100 T-Piece 10.0 30 88 24 100 02/01/19 13:43 100 T-Piece 10.0 30 02/01/19 12:06 95 02/01/19 12:00 T-piece 02/01/19 12:00 99.7 90 24 112/60 (77) 100 02/01/19 12:00 8.0 35 Intake and Output 02/01/19 02/02/19 19:00 07:00 Intake Total 1666.860 ml 320 ml Output Total 100 ml 300 ml Balance 1566.860 ml 20 ml Free Water 60 ml IV Total 1166.860 ml 60 ml Tube Feeding 500 ml 200 ml Output Urine Total 100 ml 300 ml # Bowel Movements 2 2 Laboratory Tests 02/02/19 03:05: White Blood Count 15.8H, Red Blood Count 3.98L, Hemoglobin 10.7L, Hematocrit 34.0L, Mean Corpuscular Volume 86, Mean Corpuscular Hemoglobin 26.8L, Mean Corpuscular Hemoglobin Concent 31.3L, Red Cell Distribution Width 17.8H, Platelet Count 226, Mean Platelet Volume 5.4L, Neutrophils (%) (Auto) 73.7, Lymphocytes (%) (Auto) 17.0L, Monocytes (%) (Auto) 6.7, Eosinophils (%) (Auto) 2.0, Basophils (%) (Auto) 0.7, Sodium Level 136, Potassium Level 4.1, Chloride Level 102, Carbon Dioxide Level 26, Anion Gap 9, Blood Urea Nitrogen 23H, Creatinine 1.2, Estimat Glomerular Filtration Rate , Glucose Level 113H, Calcium Level 8.6, Total Bilirubin 0.2, Aspartate Amino Transf (AST/SGOT) 45H, Alanine Aminotransferase (ALT/SGPT) 47, Alkaline Phosphatase 140H, Total Protein 7.6, Albumin 2.5L, Globulin 5.1, Albumin/Globulin Ratio 0.5L Height (Feet): 5 Height (Inches): 5.00 Weight (Pounds): 180 Objective General Appearance: WD/WN, confused Neck: supple Cardiovascular: normal rate, regular rhythm Respiratory/Chest: chest wall non-tender, rhonchi - bilaterally Abdomen: normal bowel sounds, non tender, soft, no organomegaly Edema: no edema noted Arm (L), no edema noted Arm (R), no edema noted Leg (L), no edema noted Leg (R), no edema noted Pedal (L), no edema noted Pedal (R), no edema noted Generalized Neurologic: disoriented, unresponsive, aphasia Irvin Beltrán MD Feb 02, 2019 10:38
--- NOTE | 2019-02-02 10:48 | Surgery Progress Note ---
Surgery Progress Note Subjective Additional Comments wbc 15k exam unchanged respiratory stable wounds stable micro noted Objective Last 24 Hour Vital Signs Date Time Temp Pulse Resp B/P (MAP) Pulse Ox O2 Delivery O2 Flow Rate FiO2 02/02/19 08:53 109 134/65 02/02/19 08:00 T-piece 02/02/19 08:00 8.0 30 02/02/19 08:00 98.1 109 24 134/65 (88) 100 02/02/19 07:50 105 02/02/19 06:56 102 20 100 T-Piece 10.0 30 99 20 96 02/02/19 06:56 96 T-Piece 10.0 30 02/02/19 04:00 8.0 35 02/02/19 04:00 97.2 113 22 156/74 (101) 94 02/02/19 04:00 T-piece 02/02/19 03:42 96 02/02/19 03:10 91 20 100 T-Piece 10.0 30 88 20 98 02/02/19 01:15 100 T-Piece 10.0 30 02/02/19 00:00 T-piece 02/02/19 00:00 97.5 95 20 137/70 (92) 100 02/02/19 00:00 98 02/01/19 23:43 90 20 100 T-Piece 10.0 30 84 18 99 02/01/19 20:00 87 02/01/19 20:00 8.0 35 02/01/19 20:00 97.7 88 20 123/66 (85) 100 02/01/19 20:00 T-piece 02/01/19 19:17 89 20 100 T-Piece 10.0 30 88 20 100 02/01/19 19:17 100 T-Piece 10.0 30 02/01/19 16:00 97.3 89 24 143/97 (112) 100 02/01/19 16:00 8.0 35 02/01/19 16:00 T-piece 02/01/19 16:00 87 02/01/19 15:49 87 24 100 T-Piece 10.0 30 88 24 100 02/01/19 13:43 100 T-Piece 10.0 30 02/01/19 12:06 95 02/01/19 12:00 T-piece 02/01/19 12:00 99.7 90 24 112/60 (77) 100 02/01/19 12:00 8.0 35 I&O Intake and Output 02/01/19 02/02/19 19:00 07:00 Intake Total 1666.860 ml 320 ml Output Total 100 ml 300 ml Balance 1566.860 ml 20 ml Free Water 60 ml IV Total 1166.860 ml 60 ml Tube Feeding 500 ml 200 ml Output Urine Total 100 ml 300 ml # Bowel Movements 2 2 Dressing: other Wound: other Drains: other Cardiovascular: RSR Respiratory: decreased breath sounds Abdomen: soft, non-tender, present bowel sounds Extremities: no cyanosis, other Laboratory Tests Test 02/02/19 03:05 White Blood Count 15.8 K/UL (4.8-10.8) H Red Blood Count 3.98 M/UL (4.20-5.40) L Hemoglobin 10.7 G/DL (12.0-16.0) L Hematocrit 34.0 % (37.0-47.0) L Mean Corpuscular Volume 86 FL (80-99) Mean Corpuscular Hemoglobin 26.8 PG (27.0-31.0) L Mean Corpuscular Hemoglobin Concent 31.3 G/DL (32.0-36.0) L Red Cell Distribution Width 17.8 % (11.6-14.8) H Platelet Count 226 K/UL (150-450) Mean Platelet Volume 5.4 FL (6.5-10.1) L Neutrophils (%) (Auto) 73.7 % (45.0-75.0) Lymphocytes (%) (Auto) 17.0 % (20.0-45.0) L Monocytes (%) (Auto) 6.7 % (1.0-10.0) Eosinophils (%) (Auto) 2.0 % (0.0-3.0) Basophils (%) (Auto) 0.7 % (0.0-2.0) Sodium Level 136 MMOL/L (136-145) Potassium Level 4.1 MMOL/L (3.5-5.1) Chloride Level 102 MMOL/L (98-107) Carbon Dioxide Level 26 MMOL/L (21-32) Anion Gap 9 mmol/L (5-15) Blood Urea Nitrogen 23 mg/dL (7-18) H Creatinine 1.2 MG/DL (0.55-1.30) Estimat Glomerular Filtration Rate mL/min (>60) Glucose Level 113 MG/DL (74-106) H Calcium Level 8.6 MG/DL (8.5-10.1) Total Bilirubin 0.2 MG/DL (0.2-1.0) Aspartate Amino Transf (AST/SGOT) 45 U/L (15-37) H Alanine Aminotransferase (ALT/SGPT) 47 U/L (12-78) Alkaline Phosphatase 140 U/L (46-116) H Total Protein 7.6 G/DL (6.4-8.2) Albumin 2.5 G/DL (3.4-5.0) L Globulin 5.1 g/dL Albumin/Globulin Ratio 0.5 (1.0-2.7) L Plan Problems: (1) Sacral decubitus ulcer Assessment & Plan: This is a 83-year-old female with multiple medical committees that is currently admitted for medical care and management and identified to have multiple wounds requiring care. On admission patient noted to have a resolved sacral decubitus ulcer. Has had prior care and is well-healed at this time. Will ensure it does not open up again. Patient has a right ischial decubitus ulcer that is resolved. Scar intact and well formed. Will monitor to ensure it does not open up again. Patient has a left ischial decubitus ulcer that can be identified to be stage IV with palpable bone that has been resolving as noted by the periwound tissue and scar but open area approximately 1 cm x 1.5 cm few millimeters deep to bone identified. Unsure if this is been to be completely healed prior and has since opened or if has been healing at this level. No foul odor no drainage was unsure local wound care until healed Bilateral heels soft without signs of injury Treatment plan: Please apply skin protectant and optifoam to sacral area. Change every 3 days Please apply skin protectant and optifoam to right ischial area. Change every 3 days Please apply Thera honey infused gauze to small opening in the left ischial wound bed followed by skin protectant in the periwound and up to foam. Change daily as needed saturation Offload pressure from heels with pillow Air soft mattress Turn every 2 hours Nutritional optimization We will monitor follow with recommendations (2) Sepsis Assessment & Plan: IV abx as per ID trend labs wounds unlikely etiology likely respiratory improving labs noted DAILY ESTIMATED NEEDS: Needs based on Critical care, wounds/ 60kg adj 22-28 kcals/kg 9498-1140 total kcals 1.25-2 g protein/kg 75-120 g total protein 25-30 mL/kg 6930-1826 total fluid mLs NUTRITION DIAGNOSIS: * Swallowing difficulty R/T respiratory status as evidenced by trach/vent dep, PEG dep. * Increased kcal/prot needs R/T wound healing as evidenced by BL buttocks and sacral wound photos, pending evaluation. CURRENT TF:Glucerna 1.5 @ 30ml/hr x 24 hrs ENTERAL NUTRITION RECOMMENDATIONS: Jevity 1.2 @ 55ml/hr x 24 hrs + Prosource 1pkt QD to provide 1320ml, 1584kcal, 73g +11g prot, 1060ml free water - Rec to continue [employer] TF of Jevity 1.2 - Rec Jevity 1.2 @ goal rate of 55ml/hr x 24 hrs - Add Prosource 1pkt daily to meet protein needs - Flush per MD/ HOB over 30 degrees ADDITIONAL RECOMMENDATIONS: 1) Re-calibrated bedscale wt for accurate CBW 2) Wound healing: Add Vit C 250mg QD + Cristian 1pkt BID : f/up w/ WC eval 3) Monitor lytes, replete as needed (3) Feeding by G-tube Assessment & Plan: cont tube feeds as tolerated (4) Chronic vegetative state Assessment & Plan: incontinence of urine and stool. can soil dressings. nurses doing great job with monitoring and changing prn (5) Leukocytosis Walter Madera Feb 02, 2019 10:48
--- NOTE | 2019-02-02 11:21 | Infectious Diseases Prog Note ---
"Assessment/Plan Assessment/Plan antibiotics : polymyxin A 1. acenitobacter | klebsiella | pseudomonas pneumonia 2. respiratory failure 3. hypertension 4. CVA 5. dementia 6. sacral decubitus ulcer 7. rectal VRE colonization 8. leucocytosis increased P 1. continue polymyxin 2 more days 2. will follow up cultures Subjective ROS Limited/Unobtainable: Yes Allergies: Coded Allergies: CODEINE (Verified Allergy, Unknown, HIVES, 09/15/09) Objective Vital Signs Last 24 Hour Vital Signs Date Time Temp Pulse Resp B/P (MAP) Pulse Ox O2 Delivery O2 Flow Rate FiO2 02/02/19 08:53 109 134/65 02/02/19 08:00 T-piece 02/02/19 08:00 8.0 30 02/02/19 08:00 98.1 109 24 134/65 (88) 100 02/02/19 07:50 105 02/02/19 06:56 102 20 100 T-Piece 10.0 30 99 20 96 02/02/19 06:56 96 T-Piece 10.0 30 02/02/19 04:00 8.0 35 02/02/19 04:00 97.2 113 22 156/74 (101) 94 02/02/19 04:00 T-piece 02/02/19 03:42 96 02/02/19 03:10 91 20 100 T-Piece 10.0 30 88 20 98 02/02/19 01:15 100 T-Piece 10.0 30 02/02/19 00:00 T-piece 02/02/19 00:00 97.5 95 20 137/70 (92) 100 02/02/19 00:00 98 02/01/19 23:43 90 20 100 T-Piece 10.0 30 84 18 99 02/01/19 20:00 87 02/01/19 20:00 8.0 35 02/01/19 20:00 97.7 88 20 123/66 (85) 100 02/01/19 20:00 T-piece 02/01/19 19:17 89 20 100 T-Piece 10.0 30 88 20 100 02/01/19 19:17 100 T-Piece 10.0 30 02/01/19 16:00 97.3 89 24 143/97 (112) 100 02/01/19 16:00 8.0 35 02/01/19 16:00 T-piece 02/01/19 16:00 87 02/01/19 15:49 87 24 100 T-Piece 10.0 30 88 24 100 02/01/19 13:43 100 T-Piece 10.0 30 02/01/19 12:06 95 02/01/19 12:00 T-piece 02/01/19 12:00 99.7 90 24 112/60 (77) 100 02/01/19 12:00 8.0 35 Height (Feet): 5 Height (Inches): 5.00 Weight (Pounds): 180 HEENT: status post trach Respiratory/Chest: lungs clear Cardiovascular: normal rate, regular rhythm, no gallop/murmur Abdomen: soft, non tender, other - GT Extremities: no edema Microbiology Date/Time Source Procedure Growth Status 02/01/19 08:40 Sputum Gram Stain Pending Resulted 02/01/19 08:40 Sputum Culture - Preliminary Gram Negative Bacillus 1 Resulted Laboratory Tests Test 02/02/19 03:05 White Blood Count 15.8 K/UL (4.8-10.8) H Red Blood Count 3.98 M/UL (4.20-5.40) L Hemoglobin 10.7 G/DL (12.0-16.0) L Hematocrit 34.0 % (37.0-47.0) L Mean Corpuscular Volume 86 FL (80-99) Mean Corpuscular Hemoglobin 26.8 PG (27.0-31.0) L Mean Corpuscular Hemoglobin Concent 31.3 G/DL (32.0-36.0) L Red Cell Distribution Width 17.8 % (11.6-14.8) H Platelet Count 226 K/UL (150-450) Mean Platelet Volume 5.4 FL (6.5-10.1) L Neutrophils (%) (Auto) 73.7 % (45.0-75.0) Lymphocytes (%) (Auto) 17.0 % (20.0-45.0) L Monocytes (%) (Auto) 6.7 % (1.0-10.0) Eosinophils (%) (Auto) 2.0 % (0.0-3.0) Basophils (%) (Auto) 0.7 % (0.0-2.0) Sodium Level 136 MMOL/L (136-145) Potassium Level 4.1 MMOL/L (3.5-5.1) Chloride Level 102 MMOL/L (98-107) Carbon Dioxide Level 26 MMOL/L (21-32) Anion Gap 9 mmol/L (5-15) Blood Urea Nitrogen 23 mg/dL (7-18) H Creatinine 1.2 MG/DL (0.55-1.30) Estimat Glomerular Filtration Rate mL/min (>60) Glucose Level 113 MG/DL (74-106) H Calcium Level 8.6 MG/DL (8.5-10.1) Total Bilirubin 0.2 MG/DL (0.2-1.0) Aspartate Amino Transf (AST/SGOT) 45 U/L (15-37) H Alanine Aminotransferase (ALT/SGPT) 47 U/L (12-78) Alkaline Phosphatase 140 U/L (46-116) H Total Protein 7.6 G/DL (6.4-8.2) Albumin 2.5 G/DL (3.4-5.0) L Globulin 5.1 g/dL Albumin/Globulin Ratio 0.5 (1.0-2.7) L Current Medications Medications (Trade) Dose Ordered Sig/Maicol Route PRN Reason Start Time Stop Time Status Last Admin Dose Admin Acetylcysteine (Mucomyst) 100 mg Q4HRT [facility] 02/01/19 15:00 03/03/19 12:59 02/02/19 06:56 Albuterol/ Ipratropium (Albuterol/ Ipratropium) 3 ml Q4HRT [facility] 02/01/19 15:00 02/06/19 14:59 02/02/19 06:56 Amlodipine Besylate (Norvasc) 10 mg DAILY GT 01/24/19 09:00 02/23/19 08:59 02/02/19 08:53 Ascorbic Acid (Vitamin C) 250 mg DAILY ORAL 01/25/19 09:00 02/24/19 08:59 02/02/19 08:54 Bisacodyl (Dulcolax) 10 mg PRN PRN RECTAL Constipation 01/24/19 05:30 02/23/19 05:29 Docusate Sodium (Colace) 100 mg DAILY PRN GT Constipation 01/24/19 05:45 02/23/19 05:29 Famotidine (Pepcid) 20 mg DAILY GT 01/24/19 09:00 02/23/19 08:59 02/02/19 08:54 Ferrous Sulfate (Feosol) 300 mg BID GT 01/24/19 09:00 02/23/19 08:59 02/02/19 08:53 Folic Acid (Folate) 1 mg DAILY GT 01/24/19 09:00 02/23/19 08:59 02/02/19 08:54 Heparin Sodium (Porcine) (Heparin 5000 units/ml) 5,000 units EVERY 12 HOURS SUBQ 01/24/19 09:00 02/23/19 08:59 02/02/19 08:54 Levetiracetam (Keppra) 750 mg Q12HR GT 01/28/19 21:00 02/23/19 08:59 02/02/19 08:53 Ondansetron HCl (Zofran) 4 mg Q6H PRN GT Nausea & Vomiting 01/24/19 05:30 02/23/19 05:29 Polymyxin B Sulfate [id number] units/Dextrose 550 ml @ 366.667 mls/hr EVERY 12 HOURS IV 02/01/19 17:00 02/08/19 16:59 02/02/19 08:49 Geovany Yang MD Feb 02, 2019 11:21"
[2019-02-02 12:00] VITALS: BP 126/57
--- NOTE | 2019-02-02 12:50 | NUR ---
RADIOLOGY DEPT., CXR DONE. JOSE LUIS
--- NOTE | 2019-02-02 14:27 | Diagnostic Imaging Report ---
Indication: Dyspnea Comparison: 01/18/2019 A single view chest radiograph was obtained. Findings: There is interstitial prominence within the lungs. This is nonspecific and the to be chronic. Tracheostomy is noted. Heart size is probably normal cardiac of the low lung volumes. Bones are osteopenic. IMPRESSION: No change from the prior study. Prominence of the pulmonary interstitial nonspecific
[2019-02-02 16:00] VITALS: BP 135/73
--- NOTE | 2019-02-02 17:00 | NUR ---
NURSE NOTES: Bedbath provided. Remains Tpiece at 35%. No respiratory distress.
--- NOTE | 2019-02-02 18:52 | NUR ---
NURSE NOTES: Informed Dr. Beltrán that patient's daughter is concerned about the TF rate of 55ml/hour. Patient's daughter is requesting to have the rate to be lowered. Dr. Beltrán ordered to lower the rate to 40ml/hour. Same TF formula.
--- NOTE | 2019-02-02 19:15 | NUR ---
HAND-OFF: Report given to Fan Greene RN.
--- NOTE | 2019-02-02 19:15 | NUR ---
NURSE NOTES: Report received from JEANNINE Schneider. Pt is resting in bed. Extremities contacted. Not able to follow commands and non-verbal. Sinus rhythm on campus monitor. Patient receiving 35% FiO2 via t piece and has PRN Trach to vent order- AC 14, Tv 450, FiO2 40%, P5. O2 sat 98-100%. Moderate amount of oral secretion noted, suction present at bedside. pt. G-tube in place receiving Glucerna 1.5 at 30cc/hr. IV to right FA 22 left hand 20 patent, asymptomatic and dressing in tact. Bed in lowest position, side rails up x3, call light within reach, bed alarm activated and side rails padded per protocol. Will continue plan of care.
--- NOTE | 2019-02-02 19:25 | NUR ---
CASE MANAGEMENT: REVIEW SI: SEPSIS . PNA T 98.7 HR 104 RR 24 BP 126/57 SAT 97% T-PIECE FIO2 30 WBC 15.8 H/H 10.7/34.0 IS: POLYMYXIN B IV Q12HR MUCOMYST GT Q4HR PRN GEOVANY NEB HHN Q4HR KEPPRA GT Q12HR GT FEEDING STEP DOWN UNIT STATUS DCP: PATIENT IS FROM [facility]
[2019-02-02 20:00] VITALS: BP 128/57
--- NOTE | 2019-02-02 21:00 | NUR ---
NURSE NOTES: Patient provided with oral care and suctioning for excess secretions. Patient tolerated care well and continues to show O2 saturation between 97-100% Family is present at bedside and request RT. Called RT as requested. Will continue to monitor.
--- NOTE | 2019-02-02 22:00 | NUR ---
NURSE NOTES: Patient provided with oral care and suctioning for excess secretions. Patient tolerated care well and continues to show O2 saturation between 97-100% Family is present at bedside and request RT. Called RT as requested. Tenacious secretions noted. Patient/Family declines administration of Keppra and denies history of seizures. Family requests to speak with primary MD tomorrow regarding patient hx. Family/Patient concerned about GT feeding. Daughter states that with higher rates patient has excess secretions and nausea. Will endorse. Will continue to monitor.
--- NOTE | 2019-02-02 22:50 | NUR ---
NURSE NOTES: Patient had 1 episode of vomiting. Vomit was brown in color (same color as tube feed) and liquid in consistency. Provided patient with oral care and suctioning. No signs of aspiration noted. HOB of bed was elevated and nursing staff at bedside to provide oral care when episode occurred. Patient tolerated care well and continues to show O2 saturation between 98-99% Family is present at bedside and request RT. Called RT as requested. Trach care performed. Zofran administered as prescribed. IV catheter infiltrated and removed. Will replace. Will continue to monitor.
[2019-02-03] VITALS: BP 151/86
--- NOTE | 2019-02-03 | Progress Note ---
DATE: 02/02/2019 CARDIOLOGY PROGRESS NOTE SUBJECTIVE: The patient remains on vent. Weaning efforts to T-collar successful. Less congestion and tolerating feeding. Noncommunicative. Monitored rhythm sinus. Rare ectopic. OBJECTIVE: VITAL SIGNS: Blood pressure 126/57, pulse 96, respirations 23. Afebrile. LUNGS: Coarse breath sounds. HEART: Regular rhythm and rate. Normal S1, S2. ABDOMEN: Soft. EXTREMITIES: No edema. LABORATORY DATA: Sodium 136, potassium 4.1, bicarbonate 26, BUN 23, and creatinine 1.2. Albumin 2.5. Pro-natriuretic peptide yesterday was only 200. White count up to 15.8 and hemoglobin 10.7. Sputum is now revealing a gram-negative bacillus. IMPRESSION: 1. Gram-negative healthcare-acquired pneumonia. 2. Respiratory failure. 3. Acute and chronic diastolic congestive heart failure, clinically compensated. 4. Hypertensive heart disease with controlled blood pressure. 5. Worsening leukocytosis. 6. [id number] protein-calorie malnutrition. PLAN: 1. Recheck urine studies. 2. Antimicrobials per Infectious Disease bridal consultant. 3. Periodic diuresis based on clinical parameters. 4. Titrate cardiovascular regimen as needed for optimal blood pressure control. Bg Hagen M.D. DR: DAMEON JOB#: [id number] CC:
--- NOTE | 2019-02-03 01:00 | NUR ---
NURSE NOTES: Unable to place new IVC with vein viewer. Charge, Gage Guerrero RN unable to palce IV catheter. Will notify MD. Will continue to monitor.
[2019-02-03 04:00] VITALS: BP 154/86
--- NOTE | 2019-02-03 04:00 | NUR ---
NURSE NOTES: Patient provided with oral care and suctioning for excess secretions. Patient tolerated care well and continues to show O2 saturation between 98-100% Will continue to monitor.
[2019-02-03] MEDS: Albuterol/Ipratropium 3ml neb HHN SCH ×6 (04:01→22:46)
[2019-02-03 05:25] LABS: BASOPHILS % (AUTO) 0.8 % (0.0-2.0); EOSINOPHILS % (AUTO) 2.1 % (0.0-3.0); HEMATOCRIT 30.4 % (37.0-47.0); HEMOGLOBIN 9.8 G/DL (12.0-16.0); LYMPHOCYTES % (AUTO) 15.4 % (20.0-45.0); MEAN CORPUSCULAR VOLUME 85 FL (80-99); NEUTROPHILS % (AUTO) 75.7 % (45.0-75.0); PLATELET COUNT 227 K/UL (150-450); RED BLOOD COUNT 3.58 M/UL (4.20-5.40); RED CELL DISTRIBUTION WIDTH 17.8 % (11.6-14.8); WHITE BLOOD COUNT 15.1 K/UL (4.8-10.8)
--- NOTE | 2019-02-03 05:35 | NUR ---
NURSE NOTES: Spoke with Dr Beltrán regarding vomiting incident, tube feeding, and requested approval for chest x-ray. Dr Beltrán to call daughter as requested. Chest x-ray approved, will follow through with order. Will continue to monitor.
--- NOTE | 2019-02-03 05:36 | NUR ---
NURSE NOTES: Discussed GT feeding running at 20 mL/hr with Dr Beltrán r/t patient not tolerating feeding well. No further incidences of vomiting. Will continue to monitor.
[2019-02-03 06:00] LABS: BILIRUBIN, URINE NEGATIVE (NEGATIVE); GLUCOSE, URINE (UA) 2+ (NEGATIVE); KETONES,URINE NEGATIVE (NEGATIVE); LEUKOCYTE ESTERASE ,URINE 2+ (NEGATIVE); NITRITE,URINE NEGATIVE (NEGATIVE); PH,URINE 6 (4.5-8.0); PROTEIN,URINE 3+ (NEGATIVE); UROBILINOGEN,URINE NORMAL MG/DL (0.0-1.0)
[2019-02-03 06:18] LABS: APPEARANCE,URINE CLOUDY; COLOR,URINE YELLOW
--- NOTE | 2019-02-03 07:05 | NUR ---
NURSE NOTES: received patient report from katina mann. patient is on bed, noted to be obtunded. rt at bedside doing care. on tpiece at prescribed rate. will follow plan of care.
--- NOTE | 2019-02-03 07:05 | NUR ---
HAND-OFF: Report given to JEANNINE Ly. Pt is resting in bed. Extremities contacted. Not able to follow commands and non-verbal. Sinus Tach (102) on compliance monitor. Patient receiving 35% FiO2 via t piece and has PRN Trach to vent order- AC 14, Tv 450, FiO2 40%, P5. O2 sat 98-100%. Copious amount of oral secretion noted, suction present at bedside. pt. G-tube in place receiving Jevity 1.2 at 30cc/hr. Dr Beltrán aware pt is not tolerating feeding well. Endorsed to oncoming shift that BUN resulted elevated today (20) and that CXR is pending. Bed in lowest position, side rails up x3, call light within reach, bed alarm activated and side rails padded per protocol.
[2019-02-03 08:00] VITALS: BP 127/65
--- NOTE | 2019-02-03 08:00 | Pulmonology Progress Note ---
Assessment/Plan Assessment/Plan Impression: Sepsis syndrome Pneumonia VDRF, Trach, G tube, Hypertension, Cardiac disease, Dementia, Previous CVA, Seizure disorder, Respiratory failure with hypoxia Anemia Sacral ulcer Plan ID noted SNF meds as is off vent as able; monitor for distress neb therapy and suction Oxygen as needed Monitor labs PUD and DVT prophylaxis Patient is a DNR. No CPR. dc to snf soon will discuss impression, plan, and exam edited and reviewed in detail care discussed with RN Subjective ROS Limited/Unobtainable: Yes Allergies: Coded Allergies: CODEINE (Verified Allergy, Unknown, HIVES, 09/15/09) Subjective currently off the ventilator noted congestion supportive care noted orders in place Objective Last 24 Hour Vital Signs Date Time Temp Pulse Resp B/P (MAP) Pulse Ox O2 Delivery O2 Flow Rate FiO2 02/03/19 07:01 100 T-Piece 10.0 30 02/03/19 04:00 8.0 35 02/03/19 04:00 T-piece 02/03/19 04:00 98.2 99 24 154/86 (108) 99 02/03/19 03:58 101 18 100 T-Piece 10.0 30 104 19 100 02/03/19 03:35 105 02/03/19 01:13 100 T-Piece 10.0 30 02/03/19 00:00 T-piece 02/03/19 00:00 98.6 104 26 151/86 (107) 96 02/03/19 00:00 8.0 35 02/02/19 23:54 103 18 100 T-Piece 10.0 30 102 19 100 02/02/19 23:54 102 18 100 T-Piece 10.0 30 02/02/19 23:29 104 02/02/19 20:00 98.8 95 26 128/57 (80) 99 02/02/19 20:00 T-piece 02/02/19 19:24 98 18 99 T-Piece 10.0 30 95 20 95 02/02/19 19:24 95 T-Piece 10.0 30 02/02/19 19:11 96 02/02/19 17:00 35 02/02/19 16:00 8.0 30 02/02/19 16:00 T-piece 02/02/19 16:00 98.7 99 24 135/73 (93) 98 11/4/19 15:33 97 T-Piece 10.0 30 02/02/19 15:33 94 20 100 T-Piece 10.0 30 99 20 97 02/02/19 15:12 96 02/02/19 12:00 98.9 96 23 126/57 (80) 100 02/02/19 12:00 8.0 30 02/02/19 12:00 T-piece 02/02/19 11:44 104 02/02/19 08:53 109 134/65 02/02/19 08:00 T-piece 02/02/19 08:00 8.0 30 02/02/19 08:00 98.1 109 24 134/65 (88) 100 Intake and Output 02/02/19 02/03/19 19:00 07:00 Intake Total 1080.000 ml 420 ml Output Total 100 ml Balance 1080.000 ml 320 ml Free Water 100 ml IV Total 550.000 ml Tube Feeding 530 ml 320 ml Output Urine Total 100 ml # Voids 2 2 Objective WDWN NAD contracted off vent reduced breath sounds bilaterally with some rhonchi [id number] without MRG NABS nontender no HSM no CC minimal nonfocal nonverbal trach and gt reviewed and edited Microbiology Date/Time Source Procedure Growth Status 02/01/19 08:40 Sputum Gram Stain - Final Resulted 02/01/19 08:40 Sputum Culture - Preliminary Gram Negative Bacillus 1 Resulted Laboratory Tests 02/03/19 02:20: Urine Color Yellow, Urine Appearance Cloudy, Urine pH 6, Urine Specific [place] 1.015, Urine Protein 3+H, Urine Glucose (UA) 2+H, Urine Ketones Negative, Urine Blood 2+H, Urine Nitrite Negative, Urine Bilirubin Negative, Urine Urobilinogen Normal, Urine Leukocyte Esterase 2+H, Urine RBC 5-10H, Urine WBC 15-20H, Urine Squamous Epithelial Cells ManyH, Urine Bacteria ManyH, Urine Yeast ManyH 02/03/19 03:45: White Blood Count 15.1H, Red Blood Count 3.58L, Hemoglobin 9.8L, Hematocrit 30.4L, Mean Corpuscular Volume 85, Mean Corpuscular Hemoglobin 27.4, Mean Corpuscular Hemoglobin Concent 32.2, Red Cell Distribution Width 17.8H, Platelet Count 227, Mean Platelet Volume 5.7L, Neutrophils (%) (Auto) 75.7H, Lymphocytes (%) (Auto) 15.4L, Monocytes (%) (Auto) 6.0, Eosinophils (%) (Auto) 2.1, Basophils (%) (Auto) 0.8 Current Medications Medications (Trade) Dose Ordered Sig/Maicol Route PRN Reason Start Time Stop Time Status Last Admin Dose Admin Acetylcysteine (Mucomyst) 100 mg Q4HRT [facility] 02/01/19 15:00 03/03/19 12:59 02/03/19 07:04 Albuterol/ Ipratropium (Albuterol/ Ipratropium) 3 ml Q4HRT [facility] 02/01/19 15:00 02/06/19 14:59 02/03/19 07:04 Amlodipine Besylate (Norvasc) 10 mg DAILY GT 01/24/19 09:00 02/23/19 08:59 02/02/19 08:53 Ascorbic Acid (Vitamin C) 250 mg DAILY ORAL 01/25/19 09:00 02/24/19 08:59 02/02/19 08:54 Bisacodyl (Dulcolax) 10 mg PRN PRN RECTAL Constipation 01/24/19 05:30 02/23/19 05:29 Docusate Sodium (Colace) 100 mg DAILY PRN GT Constipation 01/24/19 05:45 02/23/19 05:29 Famotidine (Pepcid) 20 mg DAILY GT 01/24/19 09:00 02/23/19 08:59 02/02/19 08:54 Ferrous Sulfate (Feosol) 300 mg BID GT 01/24/19 09:00 02/23/19 08:59 02/02/19 17:35 Folic Acid (Folate) 1 mg DAILY GT 01/24/19 09:00 02/23/19 08:59 02/02/19 08:54 Heparin Sodium (Porcine) (Heparin 5000 units/ml) 5,000 units EVERY 12 HOURS SUBQ 01/24/19 09:00 02/23/19 08:59 02/02/19 20:34 Levetiracetam (Keppra) 750 mg Q12HR GT 01/28/19 21:00 02/23/19 08:59 02/02/19 08:53 Ondansetron HCl (Zofran) 4 mg Q6H PRN GT Nausea & Vomiting 01/24/19 05:30 02/23/19 05:29 02/02/19 23:13 Polymyxin B Sulfate [id number] units/Dextrose 550 ml @ 366.667 mls/hr EVERY 12 HOURS IV 02/01/19 17:00 02/08/19 16:59 02/02/19 21:09 Amaury Chan MD Feb 03, 2019 08:00
[2019-02-03] MEDS: Ferrous Sulfate 300 MG/5 ML UDC GT SCH ×2 (08:10→17:04)
[2019-02-03] MEDS: Ascorbic Acid 500mg tab ORAL SCH (08:11)
[2019-02-03] MEDS: levETIRAcetam 500mg/5ml Liquid GT SCH ×2 (08:11→21:39)
[2019-02-03] MEDS: Heparin 5000 units/ml inj SUBQ SCH ×2 (08:11→21:13)
[2019-02-03] MEDS: D5W IV SCH ×2 (08:22→21:12)
[2019-02-03] MEDS: POLYMYXIN B SULFATE IV SCH ×2 (08:22→21:12)
--- NOTE | 2019-02-03 08:43 | NUR ---
RADIOLOGY DEPT., CHEST X-RAY DONE.-P.DYE
--- NOTE | 2019-02-03 08:55 | General Progress Note ---
Assessment/Plan Problem List: (1) Seizure ICD Codes: R56.9 - Unspecified convulsions SNOMED: 19351325 (2) Anemia ICD Codes: D64.9 - Anemia, unspecified SNOMED: 518594897 Qualifiers: Qualified Codes: D64.9 - Anemia, unspecified (3) Sepsis ICD Codes: A41.9 - Sepsis, unspecified organism SNOMED: 82621029, 483869513 Qualifiers: Qualified Codes: A41.9 - Sepsis, unspecified organism (4) Respiratory failure with hypoxia ICD Codes: J96.91 - Respiratory failure, unspecified with hypoxia SNOMED: 55816701987854455 Qualifiers: Qualified Codes: J96.21 - Acute and chronic respiratory failure with hypoxia (5) HCAP (healthcare-associated pneumonia) ICD Codes: J18.9 - Pneumonia, unspecified organism SNOMED: 595062933, 293620509 (6) Sacral decubitus ulcer ICD Codes: L89.159 - Pressure ulcer of sacral region, unspecified stage SNOMED: 955821325 (7) HTN (hypertension) ICD Codes: I10 - Essential (primary) hypertension SNOMED: 53053772 (8) Chronic vegetative state ICD Codes: R40.3 - Persistent vegetative state SNOMED: 39413242 (9) Chronic respiratory failure ICD Codes: J96.10 - Chronic respiratory failure, unspecified whether with hypoxia or hypercapnia SNOMED: 33340965 (10) Limited mobility ICD Codes: Z74.09 - Other reduced mobility SNOMED: 3425871 Status: stable, progressing Assessment/Plan: vent prn resp rx suctioning as needed wean per pulm gt feeds bowel regime check kub add reglan iv abx per id follow up cultures Subjective ROS Limited/Unobtainable: Yes Constitutional: Reports: malaise HEENT: Reports: no symptoms Cardiovascular: Reports: no symptoms Respiratory: Reports: shortness of breath, sputum Gastrointestinal/Abdominal: Reports: difficulty swallowing Genitourinary: Reports: no symptoms Neurologic/Psychiatric: Reports: pre-existing deficit, seizure Endocrine: Reports: no symptoms Hematologic/Lymphatic: Reports: anemia Allergies: Coded Allergies: CODEINE (Verified Allergy, Unknown, HIVES, 09/15/09) All Systems: reviewed and negative except above Subjective vomited x 1. not tolerating feeds. rate decreased but still with increased residuals. poorly responsive. more congested. wbc elevated. on abx. cxr neg yesterday Objective Last 24 Hour Vital Signs Date Time Temp Pulse Resp B/P (MAP) Pulse Ox O2 Delivery O2 Flow Rate FiO2 02/03/19 08:11 99 154/86 02/03/19 07:22 102 20 100 T-Piece 10.0 30 100 20 100 02/03/19 07:01 100 T-Piece 10.0 30 02/03/19 04:00 8.0 35 02/03/19 04:00 T-piece 02/03/19 04:00 98.2 99 24 154/86 (108) 99 02/03/19 03:58 101 18 100 T-Piece 10.0 30 104 19 100 02/03/19 03:35 105 02/03/19 01:13 100 T-Piece 10.0 30 02/03/19 00:00 T-piece 02/03/19 00:00 98.6 104 26 151/86 (107) 96 02/03/19 00:00 8.0 35 02/02/19 23:54 103 18 100 T-Piece 10.0 30 102 19 100 02/02/19 23:54 102 18 100 T-Piece 10.0 30 02/02/19 23:29 104 02/02/19 20:00 98.8 95 26 128/57 (80) 99 02/02/19 20:00 T-piece 02/02/19 19:24 98 18 99 T-Piece 10.0 30 95 20 95 02/02/19 19:24 95 T-Piece 10.0 30 02/02/19 19:11 96 02/02/19 17:00 35 02/02/19 16:00 8.0 30 02/02/19 16:00 T-piece 02/02/19 16:00 98.7 99 24 135/73 (93) 98 02/02/19 15:33 97 T-Piece 10.0 30 02/02/19 15:33 94 20 100 T-Piece 10.0 30 99 20 97 02/02/19 15:12 96 02/02/19 12:00 98.9 96 23 126/57 (80) 100 02/02/19 12:00 8.0 30 02/02/19 12:00 T-piece 02/02/19 11:44 104 Intake and Output 02/02/19 02/03/19 19:00 07:00 Intake Total 1080.000 ml 420 ml Output Total 100 ml Balance 1080.000 ml 320 ml Free Water 100 ml IV Total 550.000 ml Tube Feeding 530 ml 320 ml Output Urine Total 100 ml # Voids 2 2 Laboratory Tests 02/03/19 02:20: Urine Color Yellow, Urine Appearance Cloudy, Urine pH 6, Urine Specific [place] 1.015, Urine Protein 3+H, Urine Glucose (UA) 2+H, Urine Ketones Negative, Urine Blood 2+H, Urine Nitrite Negative, Urine Bilirubin Negative, Urine Urobilinogen Normal, Urine Leukocyte Esterase 2+H, Urine RBC 5-10H, Urine WBC 15-20H, Urine Squamous Epithelial Cells ManyH, Urine Bacteria ManyH, Urine Yeast ManyH 02/03/19 03:45: White Blood Count 15.1H, Red Blood Count 3.58L, Hemoglobin 9.8L, Hematocrit 30.4L, Mean Corpuscular Volume 85, Mean Corpuscular Hemoglobin 27.4, Mean Corpuscular Hemoglobin Concent 32.2, Red Cell Distribution Width 17.8H, Platelet Count 227, Mean Platelet Volume 5.7L, Neutrophils (%) (Auto) 75.7H, Lymphocytes (%) (Auto) 15.4L, Monocytes (%) (Auto) 6.0, Eosinophils (%) (Auto) 2.1, Basophils (%) (Auto) 0.8 Height (Feet): 5 Height (Inches): 5.00 Weight (Pounds): 180 Objective General Appearance: WD/WN, confused Neck: supple Cardiovascular: normal rate, regular rhythm Respiratory/Chest: chest wall non-tender, rhonchi - bilaterally Abdomen: normal bowel sounds, non tender, soft, no organomegaly Edema: no edema noted Arm (L), no edema noted Arm (R), no edema noted Leg (L), no edema noted Leg (R), no edema noted Pedal (L), no edema noted Pedal (R), no edema noted Generalized Neurologic: disoriented, unresponsive, aphasia Irvin Beltrán MD Feb 03, 2019 08:55
[2019-02-03] MEDS ORDERED: Fleet's Enema 133ml RECTAL SCH (09:00)
--- NOTE | 2019-02-03 09:00 | Diagnostic Imaging Report ---
Indication: Dyspnea Technique: One view of the chest Comparison: 02/02/2019 Findings: Bilateral interstitial disease is unchanged. Tracheostomy is unchanged. Impression: Unchanged, over one day, findings as above.
[2019-02-03] MEDS: Docusate 100mg/10ml Liq GT SCH ×2 (09:33→17:04)
--- NOTE | 2019-02-03 10:18 | NUR ---
RADIOLOGY DEPT., ABDOMEN X-RAY COMPLETED.-P.DYE
--- NOTE | 2019-02-03 10:53 | Infectious Diseases Prog Note ---
"Assessment/Plan Assessment/Plan antibiotics : polymyxin A 1. acenitobacter | klebsiella | pseudomonas pneumonia 2. respiratory failure 3. hypertension 4. CVA 5. dementia 6. sacral decubitus ulcer 7. rectal VRE colonization 8. leucocytosis increased P 1. continue polymyxin 4 more days 2. will follow up cultures Subjective ROS Limited/Unobtainable: Yes Allergies: Coded Allergies: CODEINE (Verified Allergy, Unknown, HIVES, 09/15/09) Objective Vital Signs Last 24 Hour Vital Signs Date Time Temp Pulse Resp B/P (MAP) Pulse Ox O2 Delivery O2 Flow Rate FiO2 02/03/19 08:11 99 154/86 02/03/19 08:00 T-piece 02/03/19 08:00 8.0 35 02/03/19 08:00 99.2 102 20 127/65 (85) 99 02/03/19 07:44 100 02/03/19 07:22 102 20 100 T-Piece 10.0 30 100 20 100 02/03/19 07:01 100 T-Piece 10.0 30 02/03/19 04:00 8.0 35 02/03/19 04:00 T-piece 02/03/19 04:00 98.2 99 24 154/86 (108) 99 02/03/19 03:58 101 18 100 T-Piece 10.0 30 104 19 100 02/03/19 03:35 105 02/03/19 01:13 100 T-Piece 10.0 30 02/03/19 00:00 T-piece 02/03/19 00:00 98.6 104 26 151/86 (107) 96 02/03/19 00:00 8.0 35 02/02/19 23:54 103 18 100 T-Piece 10.0 30 102 19 100 02/02/19 23:54 102 18 100 T-Piece 10.0 30 02/02/19 23:29 104 02/02/19 20:00 98.8 95 26 128/57 (80) 99 02/02/19 20:00 T-piece 02/02/19 19:24 98 18 99 T-Piece 10.0 30 95 20 95 02/02/19 19:24 95 T-Piece 10.0 30 02/02/19 19:11 96 02/02/19 17:00 35 02/02/19 16:00 8.0 30 02/02/19 16:00 T-piece 02/02/19 16:00 98.7 99 24 135/73 (93) 98 02/02/19 15:33 97 T-Piece 10.0 30 02/02/19 15:33 94 20 100 T-Piece 10.0 30 99 20 97 02/02/19 15:12 96 02/02/19 12:00 98.9 96 23 126/57 (80) 100 02/02/19 12:00 8.0 30 02/02/19 12:00 T-piece 02/02/19 11:44 104 Height (Feet): 5 Height (Inches): 5.00 Weight (Pounds): 180 HEENT: status post trach Respiratory/Chest: lungs clear Cardiovascular: normal rate, regular rhythm, no gallop/murmur Abdomen: soft, non tender, other - GT Extremities: no edema Microbiology Date/Time Source Procedure Growth Status 02/01/19 08:40 Sputum Gram Stain - Final Resulted 02/01/19 08:40 Sputum Culture - Preliminary K.pneumoniae Carbapenem Resist Resulted Laboratory Tests Test 02/03/19 02:20 02/03/19 03:45 Urine Color Yellow Urine Appearance Cloudy Urine pH 6 (4.5-8.0) Urine Specific [place] 1.015 (1.005-1.035) Urine Protein 3+ (NEGATIVE) H Urine Glucose (UA) 2+ (NEGATIVE) H Urine Ketones Negative (NEGATIVE) Urine Blood 2+ (NEGATIVE) H Urine Nitrite Negative (NEGATIVE) Urine Bilirubin Negative (NEGATIVE) Urine Urobilinogen Normal MG/DL (0.0-1.0) Urine Leukocyte Esterase 2+ (NEGATIVE) H Urine RBC 5-10 /HPF (0 - 2) H Urine WBC 15-20 /HPF (0 - 2) H Urine Squamous Epithelial Cells Many /LPF (NONE/OCC) H Urine Bacteria Many /HPF (NONE) H Urine Yeast Many /HPF (NONE) H White Blood Count 15.1 K/UL (4.8-10.8) H Red Blood Count 3.58 M/UL (4.20-5.40) L Hemoglobin 9.8 G/DL (12.0-16.0) L Hematocrit 30.4 % (37.0-47.0) L Mean Corpuscular Volume 85 FL (80-99) Mean Corpuscular Hemoglobin 27.4 PG (27.0-31.0) Mean Corpuscular Hemoglobin Concent 32.2 G/DL (32.0-36.0) Red Cell Distribution Width 17.8 % (11.6-14.8) H Platelet Count 227 K/UL (150-450) Mean Platelet Volume 5.7 FL (6.5-10.1) L Neutrophils (%) (Auto) 75.7 % (45.0-75.0) H Lymphocytes (%) (Auto) 15.4 % (20.0-45.0) L Monocytes (%) (Auto) 6.0 % (1.0-10.0) Eosinophils (%) (Auto) 2.1 % (0.0-3.0) Basophils (%) (Auto) 0.8 % (0.0-2.0) Current Medications Medications (Trade) Dose Ordered Sig/Maicol Route PRN Reason Start Time Stop Time Status Last Admin Dose Admin Acetylcysteine (Mucomyst) 100 mg Q4HRT [facility] 02/01/19 15:00 03/03/19 12:59 02/03/19 07:04 Albuterol/ Ipratropium (Albuterol/ Ipratropium) 3 ml Q4HRT [facility] 02/01/19 15:00 02/06/19 14:59 02/03/19 07:04 Amlodipine Besylate (Norvasc) 10 mg DAILY GT 01/24/19 09:00 02/23/19 08:59 02/03/19 08:11 Ascorbic Acid (Vitamin C) 250 mg DAILY ORAL 01/25/19 09:00 02/24/19 08:59 02/03/19 08:11 Bisacodyl (Dulcolax) 10 mg PRN PRN RECTAL Constipation 01/24/19 05:30 02/23/19 05:29 Docusate Sodium (Colace) 100 mg DAILY PRN GT Constipation 01/24/19 05:45 02/23/19 05:29 Docusate Sodium (Colace) 100 mg TWICE A DAY GT 02/03/19 09:00 03/05/19 08:59 02/03/19 09:33 Famotidine (Pepcid) 20 mg DAILY GT 01/24/19 09:00 02/23/19 08:59 02/03/19 08:11 Ferrous Sulfate (Feosol) 300 mg BID GT 01/24/19 09:00 02/23/19 08:59 02/03/19 08:10 Folic Acid (Folate) 1 mg DAILY GT 01/24/19 09:00 02/23/19 08:59 02/03/19 08:11 Heparin Sodium (Porcine) (Heparin 5000 units/ml) 5,000 units EVERY 12 HOURS SUBQ 01/24/19 09:00 02/23/19 08:59 02/02/19 20:34 Levetiracetam (Keppra) 750 mg Q12HR GT 01/28/19 21:00 02/23/19 08:59 02/03/19 08:11 Metoclopramide HCl (Reglan) 10 mg Q8H PRN IVP Nausea & Vomiting 02/03/19 09:00 03/05/19 08:59 Ondansetron HCl (Zofran) 4 mg Q6H PRN GT Nausea & Vomiting 01/24/19 05:30 02/23/19 05:29 02/02/19 23:13 Polymyxin B Sulfate [id number] units/Dextrose 550 ml @ 366.667 mls/hr EVERY 12 HOURS IV 02/01/19 17:00 02/08/19 16:59 02/03/19 08:22 Geovany Yang MD Feb 03, 2019 10:53"
--- NOTE | 2019-02-03 11:56 | NUR ---
RD ASSESSMENT & RECOMMENDATIONS SEE CARE ACTIVITY FOR COMPLETE ASSESSMENT DAILY ESTIMATED NEEDS: Needs based on Pulmonary, wounds, bedbound/ 60kg adj 25-28 kcals/kg 0496-8307 total kcals 1.25-2 g protein/kg 75-120 g total protein 25-30 mL/kg 5036-8964 total fluid mLs NUTRITION DIAGNOSIS: * Swallowing difficulty R/T respiratory status as evidenced by pt on T-collar, now off the vent, PEG dep. * Increased kcal/prot needs R/T wound healing as evidenced by BL buttocks and sacral wound photos, refer to eval. CURRENT TF:Jevity 1.2 @ 40ml/hr x 24 hrs ENTERAL NUTRITION RECOMMENDATIONS: Jevity 1.2 @ 55ml/hr x 24 hrs + Prosource 1pkt QD to provide 1320ml, 1584kcal, 73g +11g prot, 1060ml free water - Rec goal rate of 55ml/hr x 24 hrs to meet est needs - Add Prosource 1pkt daily to meet protein needs - Flush per MD/ HOB over 30 degrees ADDITIONAL RECOMMENDATIONS: 1) Re-calibrated bedscale wt for accurate CBW 2) Wound healing: Add Cristian 1pkt BID + MVI x 1 Pt w/ full thickness resolving wound 3) Monitor lytes, replete as needed 4) Monitor TF tolerance : s/p vomiting x 1 on 02/02 .
[2019-02-03 12:00] VITALS: BP 123/58
--- NOTE | 2019-02-03 12:01 | Diagnostic Imaging Report ---
Indication: Vomiting, abdominal distention Technique: Supine view of the abdomen Comparison: none Findings: There is a gastrostomy. The bowel gas pattern is unremarkable. No masses or unusual calcifications Impression: No definite acute process
--- NOTE | 2019-02-03 12:51 | NUR ---
DISCHARGE PLANNING NO DISCHARGE ORDER YET HOWEVER, IN PREPARATION FOR DISCHARGE CLINICALS FAXED TO [facility] T: [phone] F: [phone]
--- NOTE | 2019-02-03 13:00 | Surgery Progress Note ---
Surgery Progress Note Subjective Additional Comments TF at 20cc/hr need to adv to goal exam stable labs noted Objective Last 24 Hour Vital Signs Date Time Temp Pulse Resp B/P (MAP) Pulse Ox O2 Delivery O2 Flow Rate FiO2 02/03/19 12:00 8.0 35 02/03/19 12:00 T-piece 02/03/19 12:00 97.8 98 20 123/58 (79) 98 02/03/19 11:29 93 02/03/19 11:25 100 20 100 T-Piece 10.0 30 97 22 100 02/03/19 08:11 99 154/86 02/03/19 08:00 T-piece 02/03/19 08:00 8.0 35 02/03/19 08:00 99.2 102 20 127/65 (85) 99 02/03/19 07:44 100 02/03/19 07:22 102 20 100 T-Piece 10.0 30 100 20 100 02/03/19 07:01 100 T-Piece 10.0 30 02/03/19 04:00 8.0 35 02/03/19 04:00 T-piece 02/03/19 04:00 98.2 99 24 154/86 (108) 99 02/03/19 03:58 101 18 100 T-Piece 10.0 30 104 19 100 02/03/19 03:35 105 02/03/19 01:13 100 T-Piece 10.0 30 02/03/19 00:00 T-piece 02/03/19 00:00 98.6 104 26 151/86 (107) 96 02/03/19 00:00 8.0 35 02/02/19 23:54 103 18 100 T-Piece 10.0 30 102 19 100 02/02/19 23:54 102 18 100 T-Piece 10.0 30 02/02/19 23:29 104 02/02/19 20:00 98.8 95 26 128/57 (80) 99 02/02/19 20:00 T-piece 02/02/19 19:24 98 18 99 T-Piece 10.0 30 95 20 95 02/02/19 19:24 95 T-Piece 10.0 30 02/02/19 19:11 96 02/02/19 17:00 35 02/02/19 16:00 8.0 30 02/02/19 16:00 T-piece 02/02/19 16:00 98.7 99 24 135/73 (93) 98 02/02/19 15:33 97 T-Piece 10.0 30 02/02/19 15:33 94 20 100 T-Piece 10.0 30 99 20 97 02/02/19 15:12 96 I&O Intake and Output 02/02/19 02/03/19 19:00 07:00 Intake Total 1080.000 ml 420 ml Output Total 100 ml Balance 1080.000 ml 320 ml Free Water 100 ml IV Total 550.000 ml Tube Feeding 530 ml 320 ml Output Urine Total 100 ml # Voids 2 2 Dressing: saturated Wound: other Drains: other Cardiovascular: RSR Respiratory: decreased breath sounds Abdomen: soft, present bowel sounds, non-distended Extremities: no tenderness, no cyanosis Laboratory Tests Test 02/03/19 02:20 02/03/19 03:45 Urine Color Yellow Urine Appearance Cloudy Urine pH 6 (4.5-8.0) Urine Specific [place] 1.015 (1.005-1.035) Urine Protein 3+ (NEGATIVE) H Urine Glucose (UA) 2+ (NEGATIVE) H Urine Ketones Negative (NEGATIVE) Urine Blood 2+ (NEGATIVE) H Urine Nitrite Negative (NEGATIVE) Urine Bilirubin Negative (NEGATIVE) Urine Urobilinogen Normal MG/DL (0.0-1.0) Urine Leukocyte Esterase 2+ (NEGATIVE) H Urine RBC 5-10 /HPF (0 - 2) H Urine WBC 15-20 /HPF (0 - 2) H Urine Squamous Epithelial Cells Many /LPF (NONE/OCC) H Urine Bacteria Many /HPF (NONE) H Urine Yeast Many /HPF (NONE) H White Blood Count 15.1 K/UL (4.8-10.8) H Red Blood Count 3.58 M/UL (4.20-5.40) L Hemoglobin 9.8 G/DL (12.0-16.0) L Hematocrit 30.4 % (37.0-47.0) L Mean Corpuscular Volume 85 FL (80-99) Mean Corpuscular Hemoglobin 27.4 PG (27.0-31.0) Mean Corpuscular Hemoglobin Concent 32.2 G/DL (32.0-36.0) Red Cell Distribution Width 17.8 % (11.6-14.8) H Platelet Count 227 K/UL (150-450) Mean Platelet Volume 5.7 FL (6.5-10.1) L Neutrophils (%) (Auto) 75.7 % (45.0-75.0) H Lymphocytes (%) (Auto) 15.4 % (20.0-45.0) L Monocytes (%) (Auto) 6.0 % (1.0-10.0) Eosinophils (%) (Auto) 2.1 % (0.0-3.0) Basophils (%) (Auto) 0.8 % (0.0-2.0) Plan Problems: (1) Sacral decubitus ulcer Assessment & Plan: This is a 83-year-old female with multiple medical committees that is currently admitted for medical care and management and identified to have multiple wounds requiring care. On admission patient noted to have a resolved sacral decubitus ulcer. Has had prior care and is well-healed at this time. Will ensure it does not open up again. Patient has a right ischial decubitus ulcer that is resolved. Scar intact and well formed. Will monitor to ensure it does not open up again. Patient has a left ischial decubitus ulcer that can be identified to be stage IV with palpable bone that has been resolving as noted by the periwound tissue and scar but open area approximately 1 cm x 1.5 cm few millimeters deep to bone identified. Unsure if this is been to be completely healed prior and has since opened or if has been healing at this level. No foul odor no drainage was unsure local wound care until healed Bilateral heels soft without signs of injury Treatment plan: Please apply skin protectant and optifoam to sacral area. Change every 3 days Please apply skin protectant and optifoam to right ischial area. Change every 3 days Please apply Thera honey infused gauze to small opening in the left ischial wound bed followed by skin protectant in the periwound and up to foam. Change daily as needed saturation Offload pressure from heels with pillow Air soft mattress Turn every 2 hours Nutritional optimization We will monitor follow with recommendations (2) Sepsis Assessment & Plan: IV abx as per ID trend labs wounds unlikely etiology likely respiratory improving labs noted DAILY ESTIMATED NEEDS: Needs based on Critical care, wounds/ 60kg adj 22-28 kcals/kg 9128-5913 total kcals 1.25-2 g protein/kg 75-120 g total protein 25-30 mL/kg 8079-1818 total fluid mLs NUTRITION DIAGNOSIS: * Swallowing difficulty R/T respiratory status as evidenced by trach/vent dep, PEG dep. * Increased kcal/prot needs R/T wound healing as evidenced by BL buttocks and sacral wound photos, pending evaluation. CURRENT TF:Glucerna 1.5 @ 30ml/hr x 24 hrs ENTERAL NUTRITION RECOMMENDATIONS: Jevity 1.2 @ 55ml/hr x 24 hrs + Prosource 1pkt QD to provide 1320ml, 1584kcal, 73g +11g prot, 1060ml free water - Rec to continue [employer] TF of Jevity 1.2 - Rec Jevity 1.2 @ goal rate of 55ml/hr x 24 hrs - Add Prosource 1pkt daily to meet protein needs - Flush per MD/ HOB over 30 degrees ADDITIONAL RECOMMENDATIONS: 1) Re-calibrated bedscale wt for accurate CBW 2) Wound healing: Add Vit C 250mg QD + Cristian 1pkt BID : f/up w/ WC eval 3) Monitor lytes, replete as needed (3) Feeding by G-tube Assessment & Plan: cont tube feeds as tolerated (4) Chronic vegetative state Assessment & Plan: incontinence of urine and stool. can soil dressings. nurses doing great job with monitoring and changing prn (5) Leukocytosis Walter Madera Feb 03, 2019 13:00
[2019-02-03 16:00] VITALS: BP 142/60
--- NOTE | 2019-02-03 18:51 | NUR ---
NURSE NOTES: left a message to dr meredith regarding this patient. that family member would like to speak with her. awaits callback and new order.
--- NOTE | 2019-02-03 19:19 | NUR ---
HAND-OFF: Report given to amy mann.
[2019-02-03] MEDS: Acetaminophen 650mg/20.3ml GT PRN (19:37)
--- NOTE | 2019-02-03 19:40 | NUR ---
NURSE NOTES: Received report from JEANNINE Ly. Pt is resting on the bed and no sign of acute distress noted. IV site intact and no sign of infiltration noted. On Tele monitor with ST with HR; 103's. On T-piece and FiO2 35% and SaO2 99% noted. On G-tube feeding with Jevity 1.2@ 40cc/hr and no residual noted. Dressing is clean and dy on wounds area. On P-200 mattress of wound management. Placed fall and seizure precaution. Will continue to care plan.
[2019-02-03 20:00] VITALS: BP 129/62
[2019-02-04] VITALS: BP 117/54
--- NOTE | 2019-02-04 01:04 | NUR ---
HAND-OFF: Report given to JEANNINE Barrett. Pt is sleeping on the bed and no sign of acute distress noted.
--- NOTE | 2019-02-04 01:05 | NUR ---
NURSE NOTES: received pt from Lorenza PAEZ., pt is resting and awake on the bed. Gtube site intact, clean, and patent. no residual noted from Gtube. obtunded. Left Hand 24G Iv site is intact, patent, and clean. Purewick is on, T-piece in place. call light within reach. bed at the lowest position, alarmed, and locked. will continue to monitor pt.
--- NOTE | 2019-02-04 01:45 | Progress Note ---
DATE: 02/03/2019 CARDIOLOGY PROGRESS NOTE SUBJECTIVE: The patient has vomiting. Not tolerating feedings by G-tube. Increased residuals noted. Poorly responsive. More congestion. Monitor, sinus rhythm and sinus tachycardia. OBJECTIVE: VITAL SIGNS: Afebrile, blood pressure 154/86, pulse 101, respirations 18 to 24. NECK: Thick trach secretions. LUNGS: Bilateral rhonchi. CARDIAC: Regular rhythm. Rapid rate. Normal S1, S2. ABDOMEN: Soft, slightly distended. No guarding. No rebound. G-tube intact. EXTREMITIES: Trace dependent edema. LABORATORY DATA: White count 15, hemoglobin 9.8. Urinalysis with 15 to 20 white cells and many yeast and bacteria. IMPRESSION: 1. Cystitis. 2. Sepsis. 3. Aspiration. 4. Gastroparesis. 5. Secondary sinus tachycardia. 6. Chronic diastolic congestive heart failure. 7. Respiratory failure with tracheostomy. 8. Hypertensive heart disease. PLAN: 1. Feedings decreased. 2. Motility agents on board. 3. Antimicrobials. 4. Respiratory hygiene. 5. Await final cultures. 6. Hold diuresis. 7. Titrate antihypertensives. 8. Adjust volume support based on clinical parameters. Bg Hagen M.D. DR: IOANA JOB#: [id number] CC:
[2019-02-04] MEDS: Albuterol/Ipratropium 3ml neb HHN SCH ×6 (02:35→23:17)
[2019-02-04 04:00] VITALS: BP 133/56
[2019-02-04 05:34] LABS: ANION GAP 9 mmol/L (5-15); BASOPHILS % (AUTO) 0.8 % (0.0-2.0); BLOOD UREA NITROGEN 23 mg/dL (7-18); CALCIUM 9.1 MG/DL (8.5-10.1); CARBON DIOXIDE 25 MMOL/L (21-32); CHLORIDE 102 MMOL/L (98-107); CREATININE 1.1 MG/DL (0.55-1.30); EOSINOPHILS % (AUTO) 3.7 % (0.0-3.0); HEMATOCRIT 30.2 % (37.0-47.0); HEMOGLOBIN 9.6 G/DL (12.0-16.0); LYMPHOCYTES % (AUTO) 25.1 % (20.0-45.0); MEAN CORPUSCULAR VOLUME 86 FL (80-99); MONOCYTES % (AUTO) 6.3 % (1.0-10.0); NEUTROPHILS % (AUTO) 64.2 % (45.0-75.0); PLATELET COUNT 218 K/UL (150-450); POTASSIUM 4.7 MMOL/L (3.5-5.1); RED CELL DISTRIBUTION WIDTH 17.8 % (11.6-14.8); SODIUM 136 MMOL/L (136-145); WHITE BLOOD COUNT 11.5 K/UL (4.8-10.8)
--- NOTE | 2019-02-04 06:49 | NUR ---
NURSE NOTES: received pt from Lorenza PAEZ., pt is resting and awake on the bed. Gtube site intact, clean, and patent. no residual noted from Gtube. obtunded. Purewick is on, T-piece in place. call light within reach. bed at the lowest position, alarmed, and locked. will continue to monitor pt. Addendum: 02/04/19 at 0651 by SYDNEY DAVIES RN wrong time
--- NOTE | 2019-02-04 07:49 | NUR ---
NURSE NOTES: unable to weight pt due to bed scale was 0. endorsed Neeta Nurse to weigh the pt.
--- NOTE | 2019-02-04 07:50 | NUR ---
HAND-OFF: Report given to Neeta PAEZ., pt is in stable condition.
--- NOTE | 2019-02-04 07:52 | General Progress Note ---
Assessment/Plan Problem List: (1) Seizure ICD Codes: R56.9 - Unspecified convulsions SNOMED: 03694326 (2) Anemia ICD Codes: D64.9 - Anemia, unspecified SNOMED: 398444102 Qualifiers: Qualified Codes: D64.9 - Anemia, unspecified (3) Sepsis ICD Codes: A41.9 - Sepsis, unspecified organism SNOMED: 65643075, 601027437 Qualifiers: Qualified Codes: A41.9 - Sepsis, unspecified organism (4) Respiratory failure with hypoxia ICD Codes: J96.91 - Respiratory failure, unspecified with hypoxia SNOMED: 03643312567981629 Qualifiers: Qualified Codes: J96.21 - Acute and chronic respiratory failure with hypoxia (5) HCAP (healthcare-associated pneumonia) ICD Codes: J18.9 - Pneumonia, unspecified organism SNOMED: 934179297, 064382547 (6) Sacral decubitus ulcer ICD Codes: L89.159 - Pressure ulcer of sacral region, unspecified stage SNOMED: 321826617 (7) HTN (hypertension) ICD Codes: I10 - Essential (primary) hypertension SNOMED: 31784167 (8) Chronic vegetative state ICD Codes: R40.3 - Persistent vegetative state SNOMED: 92830880 (9) Chronic respiratory failure ICD Codes: J96.10 - Chronic respiratory failure, unspecified whether with hypoxia or hypercapnia SNOMED: 27003806 (10) Limited mobility ICD Codes: Z74.09 - Other reduced mobility SNOMED: 7803774 Status: stable, progressing Assessment/Plan: vent prn resp rx suctioning as needed wean per pulm gt feeds bowel regime reglan monitor residuals dc keppra check eeg iv abx per id follow up cultures Subjective ROS Limited/Unobtainable: Yes Constitutional: Reports: malaise, weakness HEENT: Reports: no symptoms Cardiovascular: Reports: no symptoms Respiratory: Reports: cough, sputum Gastrointestinal/Abdominal: Reports: vomiting Genitourinary: Reports: no symptoms Neurologic/Psychiatric: Reports: pre-existing deficit Endocrine: Reports: no symptoms Hematologic/Lymphatic: Reports: no symptoms Allergies: Coded Allergies: CODEINE (Verified Allergy, Unknown, HIVES, 09/15/09) All Systems: reviewed and negative except above Subjective intermittent vomiting. per family pt has had similar problems in the past. previously had J tube but pt was converted to a g tube because of problems with recurrent clotting. Per dtr pt does not have history of szs, still with copious secretions. suctioned every hour Objective Last 24 Hour Vital Signs Date Time Temp Pulse Resp B/P (MAP) Pulse Ox O2 Delivery O2 Flow Rate FiO2 02/04/19 06:46 97 T-Piece 10.0 30 02/04/19 06:44 94 20 99 T-Piece 8.0 30 93 20 97 02/04/19 04:00 98.9 100 19 133/56 (81) 99 02/04/19 04:00 8.0 35 02/04/19 04:00 108 02/04/19 04:00 T-piece 02/04/19 02:36 98 20 100 T-Piece 8.0 30 100 20 97 02/04/19 01:29 100 T-Piece 10.0 30 02/04/19 00:00 98.2 96 20 117/54 (75) 99 02/04/19 00:00 T-piece 02/04/19 00:00 95 02/03/19 22:47 99 20 100 T-Piece 8.0 30 96 20 99 02/03/19 20:00 102 02/03/19 20:00 8.0 35 02/03/19 20:00 98.8 103 20 129/62 (84) 98 02/03/19 20:00 T-piece 02/03/19 19:15 101 20 100 T-Piece 8.0 30 104 20 100 02/03/19 19:15 100 T-Piece 10.0 30 02/03/19 16:00 8.0 35 02/03/19 16:00 98.7 102 20 142/60 (87) 99 02/03/19 16:00 T-piece 02/03/19 15:30 101 02/03/19 14:54 99 20 100 T-Piece 10.0 30 101 20 100 02/03/19 12:48 100 T-Piece 10.0 30 02/03/19 12:00 8.0 35 02/03/19 12:00 T-piece 02/03/19 12:00 97.8 98 20 123/58 (79) 98 02/03/19 11:29 93 02/03/19 11:25 100 20 100 T-Piece 10.0 30 97 22 100 02/03/19 08:11 99 154/86 02/03/19 08:00 T-piece 02/03/19 08:00 8.0 35 02/03/19 08:00 99.2 102 20 127/65 (85) 99 Intake and Output 02/03/19 02/04/19 18:59 06:59 Intake Total 1133.334 ml 1060.000 ml Output Total 640 ml 1100 ml Balance 493.334 ml -40.000 ml Free Water 30 ml 30 ml IV Total 733.334 ml 550.000 ml Tube Feeding 370 ml 480 ml Output Urine Total 640 ml 1100 ml # Voids 2 # Bowel Movements 2 Laboratory Tests 02/04/19 03:25: White Blood Count 11.5H, Red Blood Count 3.50L, Hemoglobin 9.6L, Hematocrit 30.2L, Mean Corpuscular Volume 86, Mean Corpuscular Hemoglobin 27.5, Mean Corpuscular Hemoglobin Concent 31.9L, Red Cell Distribution Width 17.8H, Platelet Count 218, Mean Platelet Volume 6.3L, Neutrophils (%) (Auto) 64.2, Lymphocytes (%) (Auto) 25.1, Monocytes (%) (Auto) 6.3, Eosinophils (%) (Auto) 3.7H, Basophils (%) (Auto) 0.8, Sodium Level 136, Potassium Level 4.7, Chloride Level 102, Carbon Dioxide Level 25, Anion Gap 9, Blood Urea Nitrogen 23H, Creatinine 1.1, Estimat Glomerular Filtration Rate , Glucose Level 110H, Calcium Level 9.1 Height (Feet): 5 Height (Inches): 5.00 Weight (Pounds): 180 Objective General Appearance: WD/WN, confused Neck: supple Cardiovascular: normal rate, regular rhythm Respiratory/Chest: chest wall non-tender, rhonchi - bilaterally Abdomen: normal bowel sounds, non tender, soft, no organomegaly Edema: no edema noted Arm (L), no edema noted Arm (R), no edema noted Leg (L), no edema noted Leg (R), no edema noted Pedal (L), no edema noted Pedal (R), no edema noted Generalized Neurologic: disoriented, unresponsive, aphasia Irvin Beltrán MD Feb 04, 2019 07:52
--- NOTE | 2019-02-04 07:55 | NUR ---
NURSE NOTES: Report received from Derrell PAEZ.Pt resting in bed asleep noted no resp distress on T-Piece at 40%,pt with large amount of tracheal secretions,suctioned frequently,no signs of pain or discomfort SR on the monitor GTF Jevity at 40 ml/hr no residual noted, ,pt incontinent of urine with pure wick in placed, skin warm and dry with pressure wounds to sacral,on P200 mattress,SR up x2 HOB elevated,will continue with plans of care.
[2019-02-04 08:00] VITALS: BP 126/60
[2019-02-04] MEDS: levETIRAcetam 500mg/5ml Liquid GT SCH ×2 (08:40→20:47)
[2019-02-04] MEDS: Pantoprazole Inj IVP SCH (08:41)
[2019-02-04] MEDS: Docusate 100mg/10ml Liq GT SCH ×2 (08:41→18:19)
[2019-02-04] MEDS: Ascorbic Acid 500mg tab ORAL SCH (08:41)
[2019-02-04] MEDS: Heparin 5000 units/ml inj SUBQ SCH ×2 (08:43→20:48)
[2019-02-04] MEDS: D5W IV SCH ×2 (09:54→20:47)
[2019-02-04] MEDS: POLYMYXIN B SULFATE IV SCH ×2 (09:54→20:47)
--- NOTE | 2019-02-04 10:34 | Infectious Diseases Prog Note ---
"Assessment/Plan Assessment/Plan antibiotics : polymyxin A 1. acenitobacter | klebsiella | pseudomonas pneumonia 2. respiratory failure 3. hypertension 4. CVA 5. dementia 6. sacral decubitus ulcer 7. rectal VRE colonization 8. leucocytosis improving 9. gram negative UTI P 1. continue polymyxin 3 more days 2. will follow up cultures Subjective ROS Limited/Unobtainable: Yes Allergies: Coded Allergies: CODEINE (Verified Allergy, Unknown, HIVES, 09/15/09) Objective Vital Signs Last 24 Hour Vital Signs Date Time Temp Pulse Resp B/P (MAP) Pulse Ox O2 Delivery O2 Flow Rate FiO2 02/04/19 08:41 102 126/60 02/04/19 08:00 97.3 102 19 126/60 (82) 100 02/04/19 08:00 8.0 35 02/04/19 06:46 97 T-Piece 10.0 30 02/04/19 06:44 94 20 99 T-Piece 8.0 30 93 20 97 02/04/19 04:00 98.9 100 19 133/56 (81) 99 02/04/19 04:00 8.0 35 02/04/19 04:00 108 02/04/19 04:00 T-piece 02/04/19 02:36 98 20 100 T-Piece 8.0 30 100 20 97 02/04/19 01:29 100 T-Piece 10.0 30 02/04/19 00:00 98.2 96 20 117/54 (75) 99 02/04/19 00:00 T-piece 02/04/19 00:00 95 02/03/19 22:47 99 20 100 T-Piece 8.0 30 96 20 99 02/03/19 20:00 102 02/03/19 20:00 8.0 35 02/03/19 20:00 98.8 103 20 129/62 (84) 98 02/03/19 20:00 T-piece 02/03/19 19:15 101 20 100 T-Piece 8.0 30 104 20 100 02/03/19 19:15 100 T-Piece 10.0 30 02/03/19 16:00 8.0 35 02/03/19 16:00 98.7 102 20 142/60 (87) 99 02/03/19 16:00 T-piece 02/03/19 15:30 101 02/03/19 14:54 99 20 100 T-Piece 10.0 30 101 20 100 02/03/19 12:48 100 T-Piece 10.0 30 02/03/19 12:00 8.0 35 02/03/19 12:00 T-piece 02/03/19 12:00 97.8 98 20 123/58 (79) 98 02/03/19 11:29 93 02/03/19 11:25 100 20 100 T-Piece 10.0 30 97 22 100 Height (Feet): 5 Height (Inches): 5.00 Weight (Pounds): 180 HEENT: status post trach Respiratory/Chest: lungs clear Cardiovascular: normal rate, regular rhythm, no gallop/murmur Abdomen: soft, non tender, other - GT Extremities: no edema Microbiology Date/Time Source Procedure Growth Status 02/03/19 02:20 Indwelling Cath Urine Culture - Preliminary Gram Negative Bacillus 1 Resulted Laboratory Tests Test 02/04/19 03:25 White Blood Count 11.5 K/UL (4.8-10.8) H Red Blood Count 3.50 M/UL (4.20-5.40) L Hemoglobin 9.6 G/DL (12.0-16.0) L Hematocrit 30.2 % (37.0-47.0) L Mean Corpuscular Volume 86 FL (80-99) Mean Corpuscular Hemoglobin 27.5 PG (27.0-31.0) Mean Corpuscular Hemoglobin Concent 31.9 G/DL (32.0-36.0) L Red Cell Distribution Width 17.8 % (11.6-14.8) H Platelet Count 218 K/UL (150-450) Mean Platelet Volume 6.3 FL (6.5-10.1) L Neutrophils (%) (Auto) 64.2 % (45.0-75.0) Lymphocytes (%) (Auto) 25.1 % (20.0-45.0) Monocytes (%) (Auto) 6.3 % (1.0-10.0) Eosinophils (%) (Auto) 3.7 % (0.0-3.0) H Basophils (%) (Auto) 0.8 % (0.0-2.0) Sodium Level 136 MMOL/L (136-145) Potassium Level 4.7 MMOL/L (3.5-5.1) Chloride Level 102 MMOL/L (98-107) Carbon Dioxide Level 25 MMOL/L (21-32) Anion Gap 9 mmol/L (5-15) Blood Urea Nitrogen 23 mg/dL (7-18) H Creatinine 1.1 MG/DL (0.55-1.30) Estimat Glomerular Filtration Rate mL/min (>60) Glucose Level 110 MG/DL (74-106) H Calcium Level 9.1 MG/DL (8.5-10.1) Current Medications Medications (Trade) Dose Ordered Sig/Maicol Route PRN Reason Start Time Stop Time Status Last Admin Dose Admin Acetaminophen (Tylenol) 650 mg Q4H PRN GT Mild Pain/Temp > 100.5 02/03/19 19:30 03/05/19 19:29 02/03/19 19:37 Acetylcysteine (Mucomyst) 100 mg Q4HRT N 02/01/19 15:00 03/03/19 12:59 02/04/19 06:44 Albuterol/ Ipratropium (Albuterol/ Ipratropium) 3 ml Q4HRT [facility] 02/01/19 15:00 02/06/19 14:59 02/04/19 06:44 Amlodipine Besylate (Norvasc) 10 mg DAILY GT 01/24/19 09:00 02/23/19 08:59 02/04/19 08:41 Ascorbic Acid (Vitamin C) 250 mg DAILY ORAL 01/25/19 09:00 02/24/19 08:59 02/04/19 08:41 Bisacodyl (Dulcolax) 10 mg PRN PRN RECTAL Constipation 01/24/19 05:30 02/23/19 05:29 Docusate Sodium (Colace) 100 mg DAILY PRN GT Constipation 01/24/19 05:45 02/23/19 05:29 Docusate Sodium (Colace) 100 mg TWICE A DAY GT 02/03/19 09:00 03/05/19 08:59 02/04/19 08:41 Famotidine (Pepcid) 20 mg DAILY GT 01/24/19 09:00 02/23/19 08:59 02/04/19 08:41 Folic Acid (Folate) 1 mg DAILY GT 01/24/19 09:00 02/23/19 08:59 02/04/19 08:41 Heparin Sodium (Porcine) (Heparin 5000 units/ml) 5,000 units EVERY 12 HOURS SUBQ 01/24/19 09:00 02/23/19 08:59 02/04/19 08:43 Levetiracetam (Keppra) 750 mg Q12HR GT 01/28/19 21:00 02/23/19 08:59 02/04/19 08:40 Metoclopramide HCl (Reglan) 10 mg Q8H PRN IVP Nausea & Vomiting 02/03/19 09:00 03/05/19 08:59 Ondansetron HCl (Zofran) 4 mg Q6H PRN GT Nausea & Vomiting 01/24/19 05:30 02/23/19 05:29 02/02/19 23:13 Pantoprazole (Protonix) 40 mg DAILY IVP 02/04/19 09:00 03/06/19 08:59 02/04/19 08:41 Polymyxin B Sulfate [id number] units/Dextrose 550 ml @ 366.667 mls/hr EVERY 12 HOURS IV 02/01/19 17:00 02/08/19 16:59 02/04/19 09:54 Geovany Yang MD Feb 04, 2019 10:34"
--- NOTE | 2019-02-04 11:00 | NUR ---
NURSE NOTES: Pt turned and repositioned,oral care done,tracheal secretions suctioned frequently.WOCN Violet assessed sacral wounds drsg change done.
[2019-02-04 12:00] VITALS: BP 135/68
--- NOTE | 2019-02-04 13:03 | NUR ---
CASE MANAGEMENT:REVIEW 02/04/19 SI: SEPSIS. KPC PNA SACRAL DECUB. CHRONIC RESP FAILURE 97.3 102 19 126/60 100% ON T-PIECE 10L 35% FIO2 WBC+11.5 IS: IV POLYMYXIN Q12 IV PROTONIX QD MUCOMYST INH Q4HRS DUONEB INH Q4HRS KEPPRA GT Q12 NORVASC GT QD HEPARIN SQ Q12 FOLATE GT QD : STEP DOWN UNIT DCP: FROM [facility]
--- NOTE | 2019-02-04 13:10 | NUR ---
DISCHARGE PLANNING CALLED AND SPOKE WITH PATIENT'S DAUGHTER, STEPHANIE. SHE DOES NOT WANT HER MOTHER TO RETURN TO [facility] D/T FOREST DAUGHTER REQUESTED HER MOTHER BE REFERRED TO 1)[facility] 2)[facility]IVER[facility]
--- NOTE | 2019-02-04 15:18 | NUR ---
NURSE NOTES:WOUND CARE FOLLOW-UP NOTES:Resolving pressure injury L ischium(L)1.8cm x (W)1cm.Scattered biofilm at base of wound. Edges flat and adherent with surrounding hyperpigmentation. No odor or exudate noted. Sacrum is pale pink with surrounding hyperpigmentation. Hyperpigmentation R ischium with small sheared area centrally.No areas of erythema or exudate noted. Both heels are soft but blanchable. Skin Assessed under collar of trach and no evidence of skin breakdown noted. All wound Tx. are effective and continued as ordered. Pt ahs an APM/Belén mattress overlay and is being repositioned per protocols and per tolerance.No new skin concerns noted.
[2019-02-04 16:45] VITALS: BP 132/67
--- NOTE | 2019-02-04 17:00 | NUR ---
NURSE NOTES: Pt stable,no distress presented,kept dry and clean,
--- NOTE | 2019-02-04 17:06 | Surgery Progress Note ---
Surgery Progress Note Subjective Additional Comments no acute events exam stable doing okay labs noted dressings changed TF tolerated Objective Last 24 Hour Vital Signs Date Time Temp Pulse Resp B/P (MAP) Pulse Ox O2 Delivery O2 Flow Rate FiO2 02/04/19 16:00 T-piece 10.0 02/04/19 16:00 8.0 35 02/04/19 14:50 103 20 100 T-Piece 8.0 30 100 20 97 02/04/19 12:49 100 T-Piece 10.0 30 02/04/19 12:07 8.0 35 02/04/19 12:00 98 02/04/19 12:00 T-piece 10.0 02/04/19 12:00 97.9 95 24 135/68 (90) 100 02/04/19 10:40 101 20 100 T-Piece 8.0 30 99 20 100 02/04/19 08:41 102 126/60 02/04/19 08:00 97.3 102 19 126/60 (82) 100 02/04/19 08:00 8.0 35 02/04/19 08:00 T-piece 10.0 02/04/19 08:00 98 02/04/19 06:46 97 T-Piece 10.0 30 02/04/19 06:44 94 20 99 T-Piece 8.0 30 93 20 97 02/04/19 04:00 98.9 100 19 133/56 (81) 99 02/04/19 04:00 8.0 35 02/04/19 04:00 108 02/04/19 04:00 T-piece 02/04/19 02:36 98 20 100 T-Piece 8.0 30 100 20 97 02/04/19 01:29 100 T-Piece 10.0 30 02/04/19 00:00 98.2 96 20 117/54 (75) 99 02/04/19 00:00 T-piece 02/04/19 00:00 95 02/03/19 22:47 99 20 100 T-Piece 8.0 30 96 20 99 02/03/19 20:00 102 02/03/19 20:00 8.0 35 02/03/19 20:00 98.8 103 20 129/62 (84) 98 02/03/19 20:00 T-piece 02/03/19 19:15 101 20 100 T-Piece 8.0 30 104 20 100 02/03/19 19:15 100 T-Piece 10.0 30 I&O Intake and Output 02/03/19 02/04/19 19:00 07:00 Intake Total 1153.334 ml 1060.000 ml Output Total 540 ml 1100 ml Balance 613.334 ml -40.000 ml Free Water 30 ml 30 ml IV Total 733.334 ml 550.000 ml Tube Feeding 390 ml 480 ml Output Urine Total 540 ml 1100 ml # Bowel Movements 2 Dressing: other Wound: other Drains: other Cardiovascular: RSR Respiratory: decreased breath sounds Abdomen: soft, present bowel sounds, non-distended Extremities: no cyanosis Laboratory Tests Test 02/04/19 03:25 White Blood Count 11.5 K/UL (4.8-10.8) H Red Blood Count 3.50 M/UL (4.20-5.40) L Hemoglobin 9.6 G/DL (12.0-16.0) L Hematocrit 30.2 % (37.0-47.0) L Mean Corpuscular Volume 86 FL (80-99) Mean Corpuscular Hemoglobin 27.5 PG (27.0-31.0) Mean Corpuscular Hemoglobin Concent 31.9 G/DL (32.0-36.0) L Red Cell Distribution Width 17.8 % (11.6-14.8) H Platelet Count 218 K/UL (150-450) Mean Platelet Volume 6.3 FL (6.5-10.1) L Neutrophils (%) (Auto) 64.2 % (45.0-75.0) Lymphocytes (%) (Auto) 25.1 % (20.0-45.0) Monocytes (%) (Auto) 6.3 % (1.0-10.0) Eosinophils (%) (Auto) 3.7 % (0.0-3.0) H Basophils (%) (Auto) 0.8 % (0.0-2.0) Sodium Level 136 MMOL/L (136-145) Potassium Level 4.7 MMOL/L (3.5-5.1) Chloride Level 102 MMOL/L (98-107) Carbon Dioxide Level 25 MMOL/L (21-32) Anion Gap 9 mmol/L (5-15) Blood Urea Nitrogen 23 mg/dL (7-18) H Creatinine 1.1 MG/DL (0.55-1.30) Estimat Glomerular Filtration Rate mL/min (>60) Glucose Level 110 MG/DL (74-106) H Calcium Level 9.1 MG/DL (8.5-10.1) Plan Problems: (1) Sacral decubitus ulcer Assessment & Plan: This is a 83-year-old female with multiple medical committees that is currently admitted for medical care and management and identified to have multiple wounds requiring care. On admission patient noted to have a resolved sacral decubitus ulcer. Has had prior care and is well-healed at this time. Will ensure it does not open up again. Patient has a right ischial decubitus ulcer that is resolved. Scar intact and well formed. Will monitor to ensure it does not open up again. Patient has a left ischial decubitus ulcer that can be identified to be stage IV with palpable bone that has been resolving as noted by the periwound tissue and scar but open area approximately 1 cm x 1.5 cm few millimeters deep to bone identified. Unsure if this is been to be completely healed prior and has since opened or if has been healing at this level. No foul odor no drainage was unsure local wound care until healed Bilateral heels soft without signs of injury Treatment plan: Please apply skin protectant and optifoam to sacral area. Change every 3 days Please apply skin protectant and optifoam to right ischial area. Change every 3 days Please apply Thera honey infused gauze to small opening in the left ischial wound bed followed by skin protectant in the periwound and up to foam. Change daily as needed saturation Offload pressure from heels with pillow Air soft mattress Turn every 2 hours Nutritional optimization We will monitor follow with recommendations (2) Sepsis Assessment & Plan: IV abx as per ID trend labs wounds unlikely etiology likely respiratory improving labs noted DAILY ESTIMATED NEEDS: Needs based on Critical care, wounds/ 60kg adj 22-28 kcals/kg 0296-6936 total kcals 1.25-2 g protein/kg 75-120 g total protein 25-30 mL/kg 2571-6773 total fluid mLs NUTRITION DIAGNOSIS: * Swallowing difficulty R/T respiratory status as evidenced by trach/vent dep, PEG dep. * Increased kcal/prot needs R/T wound healing as evidenced by BL buttocks and sacral wound photos, pending evaluation. CURRENT TF:Glucerna 1.5 @ 30ml/hr x 24 hrs ENTERAL NUTRITION RECOMMENDATIONS: Jevity 1.2 @ 55ml/hr x 24 hrs + Prosource 1pkt QD to provide 1320ml, 1584kcal, 73g +11g prot, 1060ml free water - Rec to continue [employer] TF of Jevity 1.2 - Rec Jevity 1.2 @ goal rate of 55ml/hr x 24 hrs - Add Prosource 1pkt daily to meet protein needs - Flush per MD/ HOB over 30 degrees ADDITIONAL RECOMMENDATIONS: 1) Re-calibrated bedscale wt for accurate CBW 2) Wound healing: Add Vit C 250mg QD + Cristian 1pkt BID : f/up w/ WC eval 3) Monitor lytes, replete as needed (3) Feeding by G-tube Assessment & Plan: cont tube feeds as tolerated (4) Chronic vegetative state Assessment & Plan: incontinence of urine and stool. can soil dressings. nurses doing great job with monitoring and changing prn (5) Leukocytosis Walter Madera Feb 04, 2019 17:06
--- NOTE | 2019-02-04 19:15 | NUR ---
:HAND-OFF: Report given to Bette Greene RN..
--- NOTE | 2019-02-04 19:22 | NUR ---
NURSE NOTES: Patient received from Neeta Brody RN. Pt is resting in bed. Extremities contacted. Not able to follow commands and non-verbal. Sinus Tach (102) on cardiac technician. Patient receiving 35% FiO2 via t piece and has PRN Trach to vent order- AC 14, Tv 450, FiO2 40%, P5. O2 sat 98-100%. Copious amount of oral secretion noted, suction present at bedside. pt. G-tube in place receiving Jevity 1.2 at 40cc/hr and no residual noted. Bed in lowest position, side rails up x3, call light within reach, bed alarm activated and side rails padded per protocol. Will continue to monitor. Will continue plan of care.
[2019-02-04 20:00] VITALS: BP 142/76
--- NOTE | 2019-02-04 20:14 | NUR ---
NURSE NOTES: Patient provided with oral care and suctioning for excess secretions. Patient tolerated care well and continues to show O2 saturation between 98-100% Tenacious secretions noted. GT flushed and remains intact and patent. Patient remains resting in bed; bed is in lowest position, side rails up x3 and padded per protocol, safety wheels engaged and bed alarm activated. HOB elevated per protocol. Will continue to monitor.
--- NOTE | 2019-02-04 21:35 | Pulmonology Progress Note ---
Assessment/Plan Assessment/Plan Pulmonary Progress Note HPI This an 83-year-old female with history of tracheostomy, VDRF, feeding tube, admitted with Pneumonia, respiratory distress. No reported fever chills but no nausea or vomiting. History is limited on this patient because she is nonverbal. 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 No CPR. agree with transfusion impression, plan, and exam edited and reviewed in detail care discussed with RN Subjective ROS Limited/Unobtainable: Yes Allergies: Coded Allergies: CODEINE (Verified Allergy, Unknown, HIVES, 09/15/09) Subjective currently on the ventilator some congestion supportive care noted Objective Vital Signs Noted Objective WDWN NAD contracted on vent reduced breath sounds bilaterally without rhonchi or wheeze [id number] without MRG NABS nontender no HSM no CC minimal nonfocal nonverbal trach and gt Laboratory Tests Noted Subjective ROS Limited/Unobtainable: No Allergies: Coded Allergies: CODEINE (Verified Allergy, Unknown, HIVES, 09/15/09) Objective Last 24 Hour Vital Signs Date Time Temp Pulse Resp B/P (MAP) Pulse Ox O2 Delivery O2 Flow Rate FiO2 02/04/19 20:00 99.5 107 22 142/76 (98) 100 02/04/19 20:00 T-piece 8.0 02/04/19 20:00 8.0 35 02/04/19 19:02 103 20 100 T-Piece 8.0 30 105 20 98 02/04/19 19:01 98 T-Piece 10.0 30 02/04/19 16:45 97.8 109 24 132/67 (88) 100 02/04/19 16:00 T-piece 10.0 02/04/19 16:00 102 02/04/19 16:00 8.0 35 02/04/19 14:50 103 20 100 T-Piece 8.0 30 100 20 97 02/04/19 12:49 100 T-Piece 10.0 30 02/04/19 12:07 8.0 35 02/04/19 12:00 98 02/04/19 12:00 T-piece 10.0 02/04/19 12:00 97.9 95 24 135/68 (90) 100 02/04/19 10:40 101 20 100 T-Piece 8.0 30 99 20 100 02/04/19 08:41 102 126/60 02/04/19 08:00 97.3 102 19 126/60 (82) 100 02/04/19 08:00 8.0 35 02/04/19 08:00 T-piece 10.0 02/04/19 08:00 98 02/04/19 06:46 97 T-Piece 10.0 30 02/04/19 06:44 94 20 99 T-Piece 8.0 30 93 20 97 02/04/19 04:00 98.9 100 19 133/56 (81) 99 02/04/19 04:00 8.0 35 02/04/19 04:00 108 02/04/19 04:00 T-piece 02/04/19 02:36 98 20 100 T-Piece 8.0 30 100 20 97 02/04/19 01:29 100 T-Piece 10.0 30 02/04/19 00:00 98.2 96 20 117/54 (75) 99 02/04/19 00:00 T-piece 02/04/19 00:00 95 02/03/19 22:47 99 20 100 T-Piece 8.0 30 96 20 99 Intake and Output 02/03/19 02/04/19 19:00 07:00 Intake Total 1153.334 ml 1060.000 ml Output Total 540 ml 1100 ml Balance 613.334 ml -40.000 ml Free Water 30 ml 30 ml IV Total 733.334 ml 550.000 ml Tube Feeding 390 ml 480 ml Output Urine Total 540 ml 1100 ml # Bowel Movements 2 Microbiology Date/Time Source Procedure Growth Status 02/03/19 02:20 Indwelling Cath Urine Culture - Preliminary Gram Negative Bacillus 1 Resulted Laboratory Tests 02/04/19 03:25: White Blood Count 11.5H, Red Blood Count 3.50L, Hemoglobin 9.6L, Hematocrit 30.2L, Mean Corpuscular Volume 86, Mean Corpuscular Hemoglobin 27.5, Mean Corpuscular Hemoglobin Concent 31.9L, Red Cell Distribution Width 17.8H, Platelet Count 218, Mean Platelet Volume 6.3L, Neutrophils (%) (Auto) 64.2, Lymphocytes (%) (Auto) 25.1, Monocytes (%) (Auto) 6.3, Eosinophils (%) (Auto) 3.7H, Basophils (%) (Auto) 0.8, Sodium Level 136, Potassium Level 4.7, Chloride Level 102, Carbon Dioxide Level 25, Anion Gap 9, Blood Urea Nitrogen 23H, Creatinine 1.1, Estimat Glomerular Filtration Rate , Glucose Level 110H, Calcium Level 9.1 Current Medications Medications (Trade) Dose Ordered Sig/Maicol Route PRN Reason Start Time Stop Time Status Last Admin Dose Admin Acetaminophen (Tylenol) 650 mg Q4H PRN GT Mild Pain/Temp > 100.5 02/03/19 19:30 03/05/19 19:29 02/03/19 19:37 Acetylcysteine (Mucomyst) 100 mg Q4HRT [facility] 02/01/19 15:00 03/03/19 12:59 02/04/19 19:01 Albuterol/ Ipratropium (Albuterol/ Ipratropium) 3 ml Q4HRT [facility] 02/01/19 15:00 02/06/19 14:59 02/04/19 19:01 Amlodipine Besylate (Norvasc) 10 mg DAILY GT 01/24/19 09:00 02/23/19 08:59 02/04/19 08:41 Ascorbic Acid (Vitamin C) 250 mg DAILY ORAL 01/25/19 09:00 02/24/19 08:59 02/04/19 08:41 Bisacodyl (Dulcolax) 10 mg PRN PRN RECTAL Constipation 01/24/19 05:30 02/23/19 05:29 Docusate Sodium (Colace) 100 mg DAILY PRN GT Constipation 01/24/19 05:45 02/23/19 05:29 Docusate Sodium (Colace) 100 mg TWICE A DAY GT 02/03/19 09:00 03/05/19 08:59 02/04/19 18:19 Famotidine (Pepcid) 20 mg DAILY GT 01/24/19 09:00 02/23/19 08:59 02/04/19 08:41 Folic Acid (Folate) 1 mg DAILY GT 01/24/19 09:00 02/23/19 08:59 02/04/19 08:41 Heparin Sodium (Porcine) (Heparin 5000 units/ml) 5,000 units EVERY 12 HOURS SUBQ 01/24/19 09:00 02/23/19 08:59 02/04/19 20:48 Levetiracetam (Keppra) 750 mg Q12HR GT 01/28/19 21:00 02/23/19 08:59 02/04/19 20:47 Metoclopramide HCl (Reglan) 10 mg Q8H PRN IVP Nausea & Vomiting 02/03/19 09:00 03/05/19 08:59 Ondansetron HCl (Zofran) 4 mg Q6H PRN GT Nausea & Vomiting 01/24/19 05:30 02/23/19 05:29 02/02/19 23:13 Pantoprazole (Protonix) 40 mg DAILY IVP 02/04/19 09:00 03/06/19 08:59 02/04/19 08:41 Polymyxin B Sulfate [id number] units/Dextrose 550 ml @ 366.667 mls/hr EVERY 12 HOURS IV 02/01/19 17:00 02/08/19 16:59 02/04/19 20:47 Bg Moffett MD Feb 04, 2019 21:35
--- NOTE | 2019-02-04 22:37 | NUR ---
NURSE NOTES: Back Up Worker present at bedside to perform EEG. Patient tolerating diagnostics well so far. Will continue to monitor.
[2019-02-05] VITALS: BP 141/75
--- NOTE | 2019-02-05 | NUR ---
NURSE NOTES: Patient provided with oral care and suctioning for excess secretions. Patient tolerated care well and continues to show O2 saturation between 98-100% Tenacious secretions noted. GT flushed and remains intact and patent. Patient remains resting in bed; bed is in lowest position, side rails up x3 and padded per protocol, safety wheels engaged and bed alarm activated. HOB elevated per protocol. EEG complete. Seizure noted during EEG with only physical manifestation being facial twitching. Patient currently on Keppra and no active seizures noted. EEG report placed in chart. Will continue to monitor.
--- NOTE | 2019-02-05 01:45 | Progress Note ---
DATE: 02/04/2019 CARDIOLOGY PROGRESS NOTE SUBJECTIVE: Recurring vomiting noted. No seizures. History of gastroparesis. Has problems with G-tube. Previously, had a J-tube. OBJECTIVE: VITAL SIGNS: Blood pressure 133/56, pulse 100, and respirations 19. Afebrile. Monitor, sinus tachycardia. LUNGS: Diminished breath sounds. Thin trach secretions. HEART: Regular rhythm and rate. Normal S1, S2 with a fourth heart sound. ABDOMEN: Distended, but soft. EXTREMITIES: No edema. LABORATORY DATA: White count 11.5 and hemoglobin 9.6. Urine culture with new gram-negative bacillus. Final results pending. Sodium 136, potassium 4.7, BUN 23, and creatinine 1.1. IMPRESSION: 1. Compensated diastolic congestive heart failure. 2. Moderate protein-calorie malnutrition. 3. Healthcare-acquired urinary tract infection with indwelling catheter. 4. Tracheostomy and respiratory failure. 5. Gastroparesis. 6. Healthcare-acquired pneumonia. 7. Hypertensive heart disease. 8. Secondary sinus tachycardia. PLAN: 1. Consider G-tube to J-tube replacement. 2. Await cultures of the urine. 3. Antimicrobials per Infectious Disease skin care consultant. 4. No current diuretic therapy indicated. 5. Titrate antihypertensive and anti-failure regimen based on clinical parameters. 6. DVT prophylaxis and respiratory hygiene. Bg Hagen M.D. DR: DAMEON JOB#: [id number] CC:
--- NOTE | 2019-02-05 02:00 | NUR ---
NURSE NOTES: Patient provided with oral care and suctioning for excess secretions, bed bath and linen change. Patient tolerated care well and continues to show O2 saturation between 98-100% Tenacious secretions noted. GT flushed and remains intact and patent. Patient remains resting in bed; bed is in lowest position, side rails up x3 and padded per protocol, safety wheels engaged and bed alarm activated. HOB elevated per protocol. Will continue to monitor.
[2019-02-05] MEDS: Albuterol/Ipratropium 3ml neb HHN SCH ×6 (03:02→22:52)
[2019-02-05 04:00] VITALS: BP 128/63
--- NOTE | 2019-02-05 07:15 | NUR ---
NURSE NOTES: Report received from Fan Greene RN. Patient awake, nonverbal, unable to follow commands and make needs known. Receiving O2 via T-piece @ 8L/min, FiO2 35%, no s/s of respiratory distress noted. GT feeding of Jevity 1.2 running at 40 cc/hr, no residual noted. HoB elevated. Female external catheter in place and attached to low, continuous suction. Left hand 24g IV site patent and asymptomatic. Bed locked in lowest position with padded side rails up x 3. All needs attended to. Will continue to monitor.
--- NOTE | 2019-02-05 07:21 | NUR ---
HAND-OFF: Report given to JEANNINE David. Pt is resting in bed. Extremities contacted. Not able to follow commands and non-verbal. Sinus Tach (107) on equipment monitor phototypesetting. Patient receiving 35% FiO2 via t piece and has PRN Trach to vent order- AC 14, Tv 450, FiO2 40%, P5. O2 sat 98-100%. Copious amount of oral secretion noted, suction present at bedside. pt. G-tube in place receiving Jevity 1.2 at 40cc/hr and no residual noted. Bed in lowest position, side rails up x3, call light within reach, bed alarm activated and side rails padded per protocol.
--- NOTE | 2019-02-05 07:29 | General Progress Note ---
Assessment/Plan Problem List: (1) Seizure ICD Codes: R56.9 - Unspecified convulsions SNOMED: 97939124 (2) Anemia ICD Codes: D64.9 - Anemia, unspecified SNOMED: 827297089 Qualifiers: Qualified Codes: D64.9 - Anemia, unspecified (3) Sepsis ICD Codes: A41.9 - Sepsis, unspecified organism SNOMED: 18793985, 618082687 Qualifiers: Qualified Codes: A41.9 - Sepsis, unspecified organism (4) Respiratory failure with hypoxia ICD Codes: J96.91 - Respiratory failure, unspecified with hypoxia SNOMED: 27276335077626162 Qualifiers: Qualified Codes: J96.21 - Acute and chronic respiratory failure with hypoxia (5) HCAP (healthcare-associated pneumonia) ICD Codes: J18.9 - Pneumonia, unspecified organism SNOMED: 563744299, 007937681 (6) Sacral decubitus ulcer ICD Codes: L89.159 - Pressure ulcer of sacral region, unspecified stage SNOMED: 670637518 (7) HTN (hypertension) ICD Codes: I10 - Essential (primary) hypertension SNOMED: 55560561 (8) Chronic vegetative state ICD Codes: R40.3 - Persistent vegetative state SNOMED: 16666514 (9) Chronic respiratory failure ICD Codes: J96.10 - Chronic respiratory failure, unspecified whether with hypoxia or hypercapnia SNOMED: 89410623 (10) Limited mobility ICD Codes: Z74.09 - Other reduced mobility SNOMED: 6611191 Status: stable, progressing Assessment/Plan: vent prn resp rx suctioning as needed wean per pulm gt feeds bowel regime reglan monitor residuals cont keppra for szs iv abx per id follow up cultures dc planning Subjective ROS Limited/Unobtainable: No Constitutional: Reports: malaise, weakness HEENT: Reports: no symptoms Cardiovascular: Reports: no symptoms Respiratory: Reports: no symptoms Genitourinary: Reports: no symptoms Neurologic/Psychiatric: Reports: pre-existing deficit, seizure Endocrine: Reports: no symptoms Hematologic/Lymphatic: Reports: no symptoms Allergies: Coded Allergies: CODEINE (Verified Allergy, Unknown, HIVES, 09/15/09) All Systems: reviewed and negative except above Subjective no events. less congested. +sz on eeg- brief. Objective Last 24 Hour Vital Signs Date Time Temp Pulse Resp B/P (MAP) Pulse Ox O2 Delivery O2 Flow Rate FiO2 02/05/19 04:00 8.0 35 02/05/19 04:00 98.4 107 24 128/63 (84) 99 02/05/19 04:00 T-piece 8.0 02/05/19 03:42 106 02/05/19 03:02 103 20 100 T-Piece 8.0 30 104 20 99 02/05/19 00:45 100 T-Piece 10.0 30 02/05/19 00:00 T-piece 8.0 02/05/19 00:00 99.1 107 22 141/75 (97) 100 02/04/19 23:28 99 02/04/19 23:17 101 20 100 T-Piece 8.0 30 100 20 99 02/04/19 20:00 99.5 107 22 142/76 (98) 100 02/04/19 20:00 88 02/04/19 20:00 T-piece 8.0 02/04/19 20:00 8.0 35 02/04/19 19:02 103 20 100 T-Piece 8.0 30 105 20 98 02/04/19 19:01 98 T-Piece 10.0 30 02/04/19 16:45 97.8 109 24 132/67 (88) 100 02/04/19 16:00 T-piece 10.0 02/04/19 16:00 102 02/04/19 16:00 8.0 35 02/04/19 14:50 103 20 100 T-Piece 8.0 30 100 20 97 02/04/19 12:49 100 T-Piece 10.0 30 02/04/19 12:07 8.0 35 02/04/19 12:00 98 02/04/19 12:00 T-piece 10.0 02/04/19 12:00 97.9 95 24 135/68 (90) 100 02/04/19 10:40 101 20 100 T-Piece 8.0 30 99 20 100 02/04/19 08:41 102 126/60 02/04/19 08:00 97.3 102 19 126/60 (82) 100 02/04/19 08:00 8.0 35 02/04/19 08:00 T-piece 10.0 02/04/19 08:00 98 Intake and Output 02/04/19 02/05/19 18:59 06:59 Intake Total 900 ml 1130.000 ml Output Total 450 ml Balance 450 ml 1130.000 ml Free Water 200 ml 100 ml IV Total 550.000 ml Tube Feeding 480 ml 480 ml Other 220 ml Output Urine Total 450 ml # Voids 1 2 Height (Feet): 5 Height (Inches): 5.00 Weight (Pounds): 180 Objective General Appearance: WD/WN, confused Neck: supple Cardiovascular: normal rate, regular rhythm Respiratory/Chest: chest wall non-tender, rhonchi - bilaterally Abdomen: normal bowel sounds, non tender, soft, no organomegaly Edema: no edema noted Arm (L), no edema noted Arm (R), no edema noted Leg (L), no edema noted Leg (R), no edema noted Pedal (L), no edema noted Pedal (R), no edema noted Generalized Neurologic: disoriented, unresponsive, aphasia Irvin Beltrán MD Feb 05, 2019 07:29
[2019-02-05 08:00] VITALS: BP 136/64
[2019-02-05] MEDS: Docusate 100mg/10ml Liq GT SCH ×2 (08:50→17:05)
[2019-02-05] MEDS: Pantoprazole Inj IVP SCH (08:51)
[2019-02-05] MEDS: levETIRAcetam 500mg/5ml Liquid GT SCH ×2 (08:51→20:11)
[2019-02-05] MEDS: Ascorbic Acid 500mg tab ORAL SCH (08:51)
[2019-02-05] MEDS: POLYMYXIN B SULFATE IV SCH ×2 (08:52→20:11)
[2019-02-05] MEDS: D5W IV SCH ×2 (08:52→20:11)
[2019-02-05] MEDS: Heparin 5000 units/ml inj SUBQ SCH ×2 (08:52→20:12)
--- NOTE | 2019-02-05 10:31 | Infectious Diseases Prog Note ---
Assessment/Plan Assessment/Plan A 1. Acinetobacter, pseudomonas & Klebsiella pneumonia 2. respiratory failure 3. hypertension 4. CVA 5. dementia 6. sacral decubitus ulcer 7. rectal VRE colonization 8. Anemia 9. KPC UTI P 1. continue Polymyxin B X 2 days Subjective ROS Limited/Unobtainable: Yes Constitutional: Denies: fever Allergies: Coded Allergies: CODEINE (Verified Allergy, Unknown, HIVES, 09/15/09) Objective Vital Signs Last 24 Hour Vital Signs Date Time Temp Pulse Resp B/P (MAP) Pulse Ox O2 Delivery O2 Flow Rate FiO2 02/05/19 08:51 102 136/64 02/05/19 08:00 98.2 102 22 136/64 (88) 100 02/05/19 08:00 8.0 35 02/05/19 07:44 99 02/05/19 07:40 104 20 100 T-Piece 8.0 30 109 20 100 02/05/19 07:40 100 T-Piece 10.0 30 02/05/19 04:00 8.0 35 02/05/19 04:00 98.4 107 24 128/63 (84) 99 02/05/19 04:00 T-piece 8.0 02/05/19 03:42 106 02/05/19 03:02 103 20 100 T-Piece 8.0 30 104 20 99 02/05/19 00:45 100 T-Piece 10.0 30 02/05/19 00:00 T-piece 8.0 02/05/19 00:00 99.1 107 22 141/75 (97) 100 02/04/19 23:28 99 02/04/19 23:17 101 20 100 T-Piece 8.0 30 100 20 99 02/04/19 20:00 99.5 107 22 142/76 (98) 100 02/04/19 20:00 88 02/04/19 20:00 T-piece 8.0 02/04/19 20:00 8.0 35 02/04/19 19:02 103 20 100 T-Piece 8.0 30 105 20 98 02/04/19 19:01 98 T-Piece 10.0 30 02/04/19 16:45 97.8 109 24 132/67 (88) 100 02/04/19 16:00 T-piece 10.0 02/04/19 16:00 102 02/04/19 16:00 8.0 35 02/04/19 14:50 103 20 100 T-Piece 8.0 30 100 20 97 02/04/19 12:49 100 T-Piece 10.0 30 02/04/19 12:07 8.0 35 02/04/19 12:00 98 02/04/19 12:00 T-piece 10.0 02/04/19 12:00 97.9 95 24 135/68 (90) 100 02/04/19 10:40 101 20 100 T-Piece 8.0 30 99 20 100 Height (Feet): 5 Height (Inches): 5.00 Weight (Pounds): 180 HEENT: status post trach Respiratory/Chest: decreased breath sounds, other - on T bar Cardiovascular: tachycardia Abdomen: soft, non tender, other - GT feeding Extremities: other - left hand edema Neurologic/Psychiatric: unresponsiveness, aphasia Microbiology Date/Time Source Procedure Growth Status 02/03/19 02:20 Indwelling Cath Urine Culture - Preliminary K.pneumoniae Carbapenem Resist Resulted Laboratory Tests Test 02/05/19 09:15 Levetiracetam (Keppra) Level Pending Current Medications Medications (Trade) Dose Ordered Sig/Maicol Route PRN Reason Start Time Stop Time Status Last Admin Dose Admin Acetaminophen (Tylenol) 650 mg Q4H PRN GT Mild Pain/Temp > 100.5 02/03/19 19:30 03/05/19 19:29 02/03/19 19:37 Acetylcysteine (Mucomyst) 100 mg Q4HRT N 02/01/19 15:00 03/03/19 12:59 02/05/19 08:10 Albuterol/ Ipratropium (Albuterol/ Ipratropium) 3 ml Q4HRT [facility] 02/01/19 15:00 02/06/19 14:59 02/05/19 08:10 Amlodipine Besylate (Norvasc) 10 mg DAILY GT 01/24/19 09:00 02/23/19 08:59 02/05/19 08:51 Ascorbic Acid (Vitamin C) 250 mg DAILY ORAL 01/25/19 09:00 02/24/19 08:59 02/05/19 08:51 Bisacodyl (Dulcolax) 10 mg PRN PRN RECTAL Constipation 01/24/19 05:30 02/23/19 05:29 Docusate Sodium (Colace) 100 mg DAILY PRN GT Constipation 01/24/19 05:45 02/23/19 05:29 Docusate Sodium (Colace) 100 mg TWICE A DAY GT 02/03/19 09:00 03/05/19 08:59 02/05/19 08:50 Famotidine (Pepcid) 20 mg DAILY GT 01/24/19 09:00 02/23/19 08:59 02/05/19 08:51 Folic Acid (Folate) 1 mg DAILY GT 01/24/19 09:00 02/23/19 08:59 02/05/19 08:51 Heparin Sodium (Porcine) (Heparin 5000 units/ml) 5,000 units EVERY 12 HOURS SUBQ 01/24/19 09:00 02/23/19 08:59 02/05/19 08:52 Levetiracetam (Keppra) 750 mg Q12HR GT 01/28/19 21:00 02/23/19 08:59 02/05/19 08:51 Metoclopramide HCl (Reglan) 10 mg Q8H PRN IVP Nausea & Vomiting 02/03/19 09:00 03/05/19 08:59 Ondansetron HCl (Zofran) 4 mg Q6H PRN GT Nausea & Vomiting 01/24/19 05:30 02/23/19 05:29 02/02/19 23:13 Pantoprazole (Protonix) 40 mg DAILY IVP 02/04/19 09:00 03/06/19 08:59 02/05/19 08:51 Polymyxin B Sulfate [id number] units/Dextrose 550 ml @ 366.667 mls/hr EVERY 12 HOURS IV 02/01/19 17:00 02/08/19 16:59 02/05/19 08:52 Chauncey Liriano MD Feb 05, 2019 10:31
[2019-02-05 12:00] VITALS: BP 129/74
--- NOTE | 2019-02-05 12:44 | NUR ---
DISCHARGE PLANNING PER DAUGHTERS REQUEST PATIENT WAS REFERRED TO [facility] DECLINED ACCEPTANCE D/T [facility] PNEUMONIA [facility] SUB-ACUTE DECLINED TO ACCEPT ~ NO BEDS AVAILABLE RETURNING TO [place] OR ANY OTHER FACILITY WILL BE DIFFICULT WITH [facility]
[2019-02-05 16:00] VITALS: BP 153/70
--- NOTE | 2019-02-05 16:10 | Surgery Progress Note ---
Surgery Progress Note Subjective Additional Comments ill appearing exam unchanged labs stable Objective Last 24 Hour Vital Signs Date Time Temp Pulse Resp B/P (MAP) Pulse Ox O2 Delivery O2 Flow Rate FiO2 02/05/19 14:45 110 20 100 T-Piece 8.0 30 104 20 100 02/05/19 13:00 100 T-Piece 10.0 30 02/05/19 12:00 98.6 101 24 129/74 (92) 100 02/05/19 12:00 8.0 35 02/05/19 12:00 T-piece 8.0 02/05/19 11:45 102 02/05/19 11:00 98 20 100 T-Piece 8.0 30 97 20 100 02/05/19 08:51 102 136/64 02/05/19 08:00 98.2 102 22 136/64 (88) 100 02/05/19 08:00 T-piece 8.0 02/05/19 08:00 8.0 35 02/05/19 07:44 99 02/05/19 07:40 104 20 100 T-Piece 8.0 30 109 20 100 02/05/19 07:40 100 T-Piece 10.0 30 02/05/19 04:00 8.0 35 02/05/19 04:00 98.4 107 24 128/63 (84) 99 02/05/19 04:00 T-piece 8.0 02/05/19 03:42 106 02/05/19 03:02 103 20 100 T-Piece 8.0 30 104 20 99 02/05/19 00:45 100 T-Piece 10.0 30 02/05/19 00:00 T-piece 8.0 02/05/19 00:00 99.1 107 22 141/75 (97) 100 02/04/19 23:28 99 02/04/19 23:17 101 20 100 T-Piece 8.0 30 100 20 99 02/04/19 20:00 99.5 107 22 142/76 (98) 100 02/04/19 20:00 88 02/04/19 20:00 T-piece 8.0 02/04/19 20:00 8.0 35 02/04/19 19:02 103 20 100 T-Piece 8.0 30 105 20 98 02/04/19 19:01 98 T-Piece 10.0 30 02/04/19 16:45 97.8 109 24 132/67 (88) 100 I&O Intake and Output 02/04/19 02/05/19 19:00 07:00 Intake Total 900 ml 1180.000 ml Output Total 450 ml Balance 450 ml 1180.000 ml Free Water 200 ml 150 ml IV Total 550.000 ml Tube Feeding 480 ml 480 ml Other 220 ml Output Urine Total 450 ml # Voids 1 2 Dressing: saturated Wound: other Drains: other Cardiovascular: RSR Respiratory: decreased breath sounds Abdomen: soft, non-tender, present bowel sounds Extremities: no tenderness, no cyanosis Laboratory Tests Test 02/05/19 09:15 Levetiracetam (Keppra) Level Pending Plan Problems: (1) Sacral decubitus ulcer Assessment & Plan: This is a 83-year-old female with multiple medical committees that is currently admitted for medical care and management and identified to have multiple wounds requiring care. On admission patient noted to have a resolved sacral decubitus ulcer. Has had prior care and is well-healed at this time. Will ensure it does not open up again. Patient has a right ischial decubitus ulcer that is resolved. Scar intact and well formed. Will monitor to ensure it does not open up again. Patient has a left ischial decubitus ulcer that can be identified to be stage IV with palpable bone that has been resolving as noted by the periwound tissue and scar but open area approximately 1 cm x 1.5 cm few millimeters deep to bone identified. Unsure if this is been to be completely healed prior and has since opened or if has been healing at this level. No foul odor no drainage was unsure local wound care until healed Bilateral heels soft without signs of injury Resolving pressure injury L ischium(L)1.8cm x (W)1cm.Scattered biofilm at base of wound. Edges flat and adherent with surrounding hyperpigmentation. No odor or exudate noted. Sacrum is pale pink with surrounding hyperpigmentation. Hyperpigmentation R ischium with small sheared area centrally.No areas of erythema or exudate noted. Both heels are soft but blanchable. Skin Assessed under collar of trach and no evidence of skin breakdown noted. All wound Tx. are effective and continued as ordered. Pt ahs an APM/Belén mattress overlay and is being repositioned per protocols and per tolerance.No new skin concerns noted. Treatment plan: Please apply skin protectant and optifoam to sacral area. Change every 3 days Please apply skin protectant and optifoam to right ischial area. Change every 3 days Please apply Thera honey infused gauze to small opening in the left ischial wound bed followed by skin protectant in the periwound and up to foam. Change daily as needed saturation Offload pressure from heels with pillow Air soft mattress Turn every 2 hours Nutritional optimization We will monitor follow with recommendations (2) Sepsis Assessment & Plan: IV abx as per ID trend labs wounds unlikely etiology likely respiratory improving labs noted DAILY ESTIMATED NEEDS: Needs based on Critical care, wounds/ 60kg adj 22-28 kcals/kg 2739-7998 total kcals 1.25-2 g protein/kg 75-120 g total protein 25-30 mL/kg 9496-5108 total fluid mLs NUTRITION DIAGNOSIS: * Swallowing difficulty R/T respiratory status as evidenced by trach/vent dep, PEG dep. * Increased kcal/prot needs R/T wound healing as evidenced by BL buttocks and sacral wound photos, pending evaluation. CURRENT TF:Glucerna 1.5 @ 30ml/hr x 24 hrs ENTERAL NUTRITION RECOMMENDATIONS: Jevity 1.2 @ 55ml/hr x 24 hrs + Prosource 1pkt QD to provide 1320ml, 1584kcal, 73g +11g prot, 1060ml free water - Rec to continue [employer] TF of Jevity 1.2 - Rec Jevity 1.2 @ goal rate of 55ml/hr x 24 hrs - Add Prosource 1pkt daily to meet protein needs - Flush per MD/ HOB over 30 degrees ADDITIONAL RECOMMENDATIONS: 1) Re-calibrated bedscale wt for accurate CBW 2) Wound healing: Add Vit C 250mg QD + Cristian 1pkt BID : f/up w/ WC eval 3) Monitor lytes, replete as needed (3) Feeding by G-tube Assessment & Plan: cont tube feeds as tolerated (4) Chronic vegetative state Assessment & Plan: incontinence of urine and stool. can soil dressings. nurses doing great job with monitoring and changing prn (5) Leukocytosis Walter Madera Feb 05, 2019 16:10
[2019-02-05] MEDS: Acetaminophen 650mg/20.3ml GT PRN (17:06)
--- NOTE | 2019-02-05 17:22 | Pulmonology Progress Note ---
Assessment/Plan Assessment/Plan Impression: Sepsis syndrome Pneumonia VDRF, Trach, G tube, Hypertension, Cardiac disease, Dementia, Previous CVA, Seizure disorder, Respiratory failure with hypoxia Anemia Sacral ulcer Plan ID noted SNF meds as is off vent as able; monitor for distress and PRN vent for now neb therapy and suction Oxygen as needed Monitor labs PUD and DVT prophylaxis Patient is a DNR. No CPR. dc to snf soon will discuss with all other MDs impression, plan, and exam edited and reviewed in detail care discussed with RN Subjective ROS Limited/Unobtainable: Yes Allergies: Coded Allergies: CODEINE (Verified Allergy, Unknown, HIVES, 09/15/09) Subjective currently off the ventilator noted congestion and tachypnea supportive care noted orders in place Objective Last 24 Hour Vital Signs Date Time Temp Pulse Resp B/P (MAP) Pulse Ox O2 Delivery O2 Flow Rate FiO2 02/05/19 16:00 T-piece 8.0 02/05/19 16:00 8.0 35 02/05/19 15:30 111 02/05/19 14:45 110 20 100 T-Piece 8.0 30 104 20 100 02/05/19 13:00 100 T-Piece 10.0 30 02/05/19 12:00 98.6 101 24 129/74 (92) 100 02/05/19 12:00 8.0 35 02/05/19 12:00 T-piece 8.0 02/05/19 11:45 102 02/05/19 11:00 98 20 100 T-Piece 8.0 30 97 20 100 02/05/19 08:51 102 136/64 02/05/19 08:00 98.2 102 22 136/64 (88) 100 02/05/19 08:00 T-piece 8.0 02/05/19 08:00 8.0 35 02/05/19 07:44 99 02/05/19 07:40 104 20 100 T-Piece 8.0 30 109 20 100 02/05/19 07:40 100 T-Piece 10.0 30 02/05/19 04:00 8.0 35 02/05/19 04:00 98.4 107 24 128/63 (84) 99 02/05/19 04:00 T-piece 8.0 02/05/19 03:42 106 02/05/19 03:02 103 20 100 T-Piece 8.0 30 104 20 99 02/05/19 00:45 100 T-Piece 10.0 30 02/05/19 00:00 T-piece 8.0 02/05/19 00:00 99.1 107 22 141/75 (97) 100 02/04/19 23:28 99 02/04/19 23:17 101 20 100 T-Piece 8.0 30 100 20 99 02/04/19 20:00 99.5 107 22 142/76 (98) 100 02/04/19 20:00 88 02/04/19 20:00 T-piece 8.0 02/04/19 20:00 8.0 35 02/04/19 19:02 103 20 100 T-Piece 8.0 30 105 20 98 02/04/19 19:01 98 T-Piece 10.0 30 Intake and Output 02/04/19 02/05/19 19:00 07:00 Intake Total 900 ml 1180.000 ml Output Total 450 ml Balance 450 ml 1180.000 ml Free Water 200 ml 150 ml IV Total 550.000 ml Tube Feeding 480 ml 480 ml Other 220 ml Output Urine Total 450 ml # Voids 1 2 Objective WDWN NAD contracted off vent reduced breath sounds bilaterally with some rhonchi [id number] without MRG NABS nontender no HSM no CC minimal nonfocal nonverbal trach and gt reviewed and edited Microbiology Date/Time Source Procedure Growth Status 02/03/19 02:20 Indwelling Cath Urine Culture - Preliminary K.pneumoniae Carbapenem Resist Resulted Laboratory Tests 02/05/19 09:15: Levetiracetam (Keppra) Level [Pending] Current Medications Medications (Trade) Dose Ordered Sig/Maicol Route PRN Reason Start Time Stop Time Status Last Admin Dose Admin Acetaminophen (Tylenol) 650 mg Q4H PRN GT Mild Pain/Temp > 100.5 02/03/19 19:30 03/05/19 19:29 02/05/19 17:06 Acetylcysteine (Mucomyst) 100 mg Q4HRT [facility] 02/01/19 15:00 03/03/19 12:59 02/05/19 14:44 Albuterol/ Ipratropium (Albuterol/ Ipratropium) 3 ml Q4HRT N 02/01/19 15:00 02/06/19 14:59 02/05/19 14:44 Amlodipine Besylate (Norvasc) 10 mg DAILY GT 01/24/19 09:00 02/23/19 08:59 02/05/19 08:51 Ascorbic Acid (Vitamin C) 250 mg DAILY ORAL 01/25/19 09:00 02/24/19 08:59 02/05/19 08:51 Bisacodyl (Dulcolax) 10 mg PRN PRN RECTAL Constipation 01/24/19 05:30 02/23/19 05:29 Docusate Sodium (Colace) 100 mg DAILY PRN GT Constipation 01/24/19 05:45 02/23/19 05:29 Docusate Sodium (Colace) 100 mg TWICE A DAY GT 02/03/19 09:00 03/05/19 08:59 02/05/19 17:05 Famotidine (Pepcid) 20 mg DAILY GT 01/24/19 09:00 02/23/19 08:59 02/05/19 08:51 Folic Acid (Folate) 1 mg DAILY GT 01/24/19 09:00 02/23/19 08:59 02/05/19 08:51 Heparin Sodium (Porcine) (Heparin 5000 units/ml) 5,000 units EVERY 12 HOURS SUBQ 01/24/19 09:00 02/23/19 08:59 02/05/19 08:52 Levetiracetam (Keppra) 750 mg Q12HR GT 01/28/19 21:00 02/23/19 08:59 02/05/19 08:51 Metoclopramide HCl (Reglan) 10 mg Q8H PRN IVP Nausea & Vomiting 02/03/19 09:00 03/05/19 08:59 Ondansetron HCl (Zofran) 4 mg Q6H PRN GT Nausea & Vomiting 01/24/19 05:30 02/23/19 05:29 02/05/19 17:05 Pantoprazole (Protonix) 40 mg DAILY IVP 02/04/19 09:00 03/06/19 08:59 02/05/19 08:51 Polymyxin B Sulfate [id number] units/Dextrose 550 ml @ 366.667 mls/hr EVERY 12 HOURS IV 02/01/19 17:00 02/08/19 16:59 02/05/19 08:52 Amaury Chan MD Feb 05, 2019 17:22
--- NOTE | 2019-02-05 19:18 | NUR ---
HAND-OFF: Report given to Elen Padilla RN. Patient in stable condition. Sinus rhythm on ict teacher
--- NOTE | 2019-02-05 19:25 | NUR ---
NURSE NOTES: Report received from JEANNINE David. Patient awake in bed w/ eyes open- nonverbal, unable to follow commands and make needs known. Receiving O2 via T-piece @ 8L/min, FiO2 35%, no s/s of respiratory or cardiac distress noted. GT feeding of Jevity 1.2 running at 40 cc/hr, no residual noted. HOB elevated. Female external catheter in place and attached to low, continuous suction. bed in lowest position and call light within easy reach, bed alarm on, side rails up x's3 and safety brakes engaged, Left hand 24g IV site patent and asymptomatic. Side rails padded side rails for seizure precautions- no seizure activity noted, All needs attended to. Will continue to monitor pt. and with plan of care.
--- NOTE | 2019-02-05 19:30 | NUR ---
RESPIRATORY NOTE: Received Pt on cool aerosol of 30%. suctioned the patient got thick yellow-white secretions. B/S bilateral rhonchi. Vent in room for standby.
[2019-02-05 20:00] VITALS: BP 123/67
--- NOTE | 2019-02-05 20:20 | NUR ---
NURSE NOTES: pt. noted having vomiting-small amount- suctioned, pt. and feeding held- charge nurse made aware. Will continue to monitor pt. and with plan of care.
--- NOTE | 2019-02-05 21:43 | NUR ---
NURSE NOTES: pulled out Zofran early unable to administer- pharmacy made aware. Wasted medication with charge nurse Cici as it was already crushed and unable to return.
--- NOTE | 2019-02-05 22:07 | NUR ---
NURSE NOTES: left message for DR. Beltrán- daughter concerned regarding pt. vomiting- made daughter aware that DR. Beltrán was notified of vomiting - but daughter wishes to notify doctor again- message left, awaiting for call back from doctor.
--- NOTE | 2019-02-05 23:15 | NUR ---
NURSE NOTES: pt. noted having vomiting- moderate amount noted- Will administer Zofran. No distress noted- pt. sating at 97%- will continue to monitor patient and with plan of care.
--- NOTE | 2019-02-05 23:30 | NUR ---
RESPIRATORY NOTE: Placed pt back on vent with previous vent settings of AC 14, Vt: 450, 30%, Peep of 5 due to SOB, vomiting, and family request. Pt tolerated well. Bedside RN aware, MD aware. Pt starting to calm down. Will continue to monitor patient.
--- NOTE | 2019-02-05 23:45 | Progress Note ---
DATE: 02/05/2019 CARDIOLOGY PROGRESS NOTE SUBJECTIVE: The patient continues to have episodes of sinus tachycardia. EEG revealed some seizure activity. The patient is on ventilator support. OBJECTIVE: VITAL SIGNS: Blood pressure is 128/63, pulse 107, respirations 24, afebrile, T-max 99.5. NECK: Thin trach secretions. LUNGS: Bilateral rhonchi. CARDIAC: Regular rhythm. Rapid rate. Normal S1, S2. ABDOMEN: Soft. G-tube intact. EXTREMITIES: Trace dependent edema. LABORATORY DATA: Urine culture as well as culture positive for K. pneumonia with carbapenem resistance and sputum is also positive for MDR Pseudomonas. IMPRESSION: 1. Respiratory failure. 2. Sepsis. 3. Healthcare-acquired pneumonia. 4. Healthcare-acquired urinary tract infection. 5. Secondary sinus tachycardia. 6. Hypertensive heart disease. 7. Chronic diastolic congestive heart failure. 8. Seizure disorder. PLAN: 1. Ventilator support. 2. Antimicrobials per Infectious Disease cognos consultant. 3. Nutrition by feeding tube. 4. Maintenance hydration. 5. No diuresis presently indicated. 6. Antiseizure therapy. 7. DVT prophylaxis. Bg Hagen M.D. DR: IOANA JOB#: [id number] CC:
[2019-02-06] VITALS: BP 135/72
--- NOTE | 2019-02-06 00:31 | Electroencephalogram ---
DATE OF PROCEDURE: 02/04/2019 REQUESTING PHYSICIAN: Irvin Beltrán M.D. READING PHYSICIAN: Bk Fitzgerald M.D. PROCEDURE PERFORMED: Electroencephalogram. HISTORY: This EEG was performed on an 83-year-old lady with a history of multiple medical problems including a seizure disorder and a vegetative state. The purpose of this EEG was to evaluate the patient for ongoing ictal or interictal phenomena. TECHNICAL NOTE: This EEG was performed on a [employer] with electrodes placed on the scalp according to the International 10-20 system. Purbf-mt-iztor and brkir-du-xpw montages were used. The EEG was technically satisfactory and was performed while the patient was in an unresponsive state. OBSERVATIONS: In the unresponsive state, low amplitude theta and delta activity lasting 2-3 seconds was seen followed by higher amplitude activity predominantly in the theta range lasting for 0.5-1 second at a time. An episode of coughing was noted and this was followed by myoclonic jerks and faster frequencies of a more continuous type in the theta range. No definite focal abnormalities or epileptiform discharges were seen. IMPRESSION: This is an abnormal EEG characterized by slowing of the background in the theta and delta range with low amplitude activity lasting for 2 to 3 seconds punctuated by higher amplitude activity lasting 0.5 to 1 seconds; and then a single episode of coughing associated with myoclonic jerks and continuous faster frequencies. COMMENT: This study is consistent with an encephalopathy of severe degree. Clinical correlation is recommended. Bk Fitzgerald M.D., M.S.P.H. DR: CLARITA JOB#: [id number] [facility]
[2019-02-06] MEDS: Acetaminophen 650mg/20.3ml GT PRN (01:56)
--- NOTE | 2019-02-06 02:03 | NUR ---
NURSE NOTES: pt. assessed for signs of vomiting- no vomiting noted- since feeding was started at low rate- will continue to monitor pt. and with plan of care.
--- NOTE | 2019-02-06 02:12 | NUR ---
NURSE NOTES: pt. noted having mucus with vomit with cough- feeding held- will continue to monitor pt. and with plan of care.
[2019-02-06] MEDS: Albuterol/Ipratropium 3ml neb HHN SCH ×4 (02:51→14:54)
--- NOTE | 2019-02-06 03:04 | NUR ---
NURSE NOTES: no vomiting noted- pt. appears to be doing well- will continue to hold feeding and continue to reassess pt.
[2019-02-06] MEDS: Metoclopramide 10mg/2ml Inj IVP PRN ×2 (03:12→11:21)
--- NOTE | 2019-02-06 03:15 | NUR ---
NURSE NOTES: pt. noted having nausea symptoms - Reglan given to pt. as Zofran not effective- will continue to monitor pt. and with plan of care.
--- NOTE | 2019-02-06 03:43 | NUR ---
NURSE NOTES: pt report received from Estrellita PAEZ. pt remains stable, pt vital signs are stable. pt is on a monitor worker showing NRS to ST, no further distress noted. pt is on trach to vent satting at 100%, no distress noted. pt bed is low, locked, armed, call light within reach, bed rails up times 3. will follow plan of care. family member by bed side.
--- NOTE | 2019-02-06 03:46 | NUR ---
HAND-OFF: Report given to RN, pt. remains stable and no signs of distress noted. Rt. hand IV discontinued- swelling reduced with application of ice.
[2019-02-06 04:00] VITALS: BP 130/67
--- NOTE | 2019-02-06 05:00 | NUR ---
NURSE NOTES: pt 0400 vital signs showed oral temp of 100.2. blanket off and ice pack given for cooling measures. will reassess pt vital signs to consider Tylenol to be given.
[2019-02-06 05:33] LABS: BASOPHILS % (AUTO) 0.7 % (0.0-2.0); EOSINOPHILS % (AUTO) 2.9 % (0.0-3.0); HEMATOCRIT 29.4 % (37.0-47.0); HEMOGLOBIN 9.4 G/DL (12.0-16.0); LYMPHOCYTES % (AUTO) 17.8 % (20.0-45.0); MEAN CORPUSCULAR VOLUME 85 FL (80-99); MONOCYTES % (AUTO) 8.1 % (1.0-10.0); NEUTROPHILS % (AUTO) 70.5 % (45.0-75.0); PLATELET COUNT 242 K/UL (150-450); RED BLOOD COUNT 3.45 M/UL (4.20-5.40)
[2019-02-06 05:44] LABS: ANION GAP 9 mmol/L (5-15); BLOOD UREA NITROGEN 18 mg/dL (7-18); CALCIUM 9.3 MG/DL (8.5-10.1); CARBON DIOXIDE 26 MMOL/L (21-32); CHLORIDE 95 MMOL/L (98-107); CREATININE 1.4 MG/DL (0.55-1.30); POTASSIUM 4.9 MMOL/L (3.5-5.1); SODIUM 130 MMOL/L (136-145)
--- NOTE | 2019-02-06 06:30 | NUR ---
NURSE NOTES: Pt oral temp now at 100.0F. ice packs replaced and placed on auxiliary. blanket is still off.
--- NOTE | 2019-02-06 06:37 | NUR ---
NURSE NOTES: Colace 100MG G tube PRN returned to Pyxis initial bin.
--- NOTE | 2019-02-06 06:47 | NUR ---
NURSE NOTES: spoke with MD Beltrán. stated that family member Chika wanted to speak with him. Additionally, i reported pt has been having episodes of vomiting on shift. pt has not vomited since 0300. MD Beltrán stated he will follow up with Pt and family member Chika.
--- NOTE | 2019-02-06 07:00 | NUR ---
NURSE NOTES: MD meredith saw pt this morning. reported that pt has malena having episode of vomiting, Zofran and Reglan were given. pt has not had an episode of vomiting since 0300. reported to MD Meredith that pt is now on vent as per PRN order, MD is "ok" with vent. reported to MD that the feeding is on hold due to episodes of vomiting, MD Meredith is aware, no further orders. additionally, reported to MD Meredith that family member Chika wanted to speak to him. MD Meredith stated he added MD Mckinnon on the case due to Pt having vomiting episodes.
--- NOTE | 2019-02-06 07:30 | NUR ---
HAND-OFF: Report given to PIA PAEZ. PT remains stable.
--- NOTE | 2019-02-06 07:31 | NUR ---
NURSE NOTES: Patient received lying in bed, eyes open spontaneously, non-verbal. On trach to vent, AC-14, TV-450, FiO2- 35%, PEEP-5, Oxygen saturation 100%. No respiratory distress. Scant amount of drool noted from mouth, yellow colored. Tube feeding per MD order, residual noted to be 110ml. Abdomen soft, non-tender, distended. Pure wick catheter in place. Extremities elevated, heels offloaded. Sinus tachycardia on the monitor rate of 110s-120s. Head of bed elevated. Daughter at bedside, updated on patient's plan of care. Will continue to monitor. Addendum: 02/06/19 at 1240 by Tom Gonzalez RN tube feeding held per MD order
--- NOTE | 2019-02-06 07:43 | General Progress Note ---
Assessment/Plan Problem List: (1) Seizure ICD Codes: R56.9 - Unspecified convulsions SNOMED: 18826584 (2) Anemia ICD Codes: D64.9 - Anemia, unspecified SNOMED: 047783931 Qualifiers: Qualified Codes: D64.9 - Anemia, unspecified (3) Sepsis ICD Codes: A41.9 - Sepsis, unspecified organism SNOMED: 39166433, 059861733 Qualifiers: Qualified Codes: A41.9 - Sepsis, unspecified organism (4) Respiratory failure with hypoxia ICD Codes: J96.91 - Respiratory failure, unspecified with hypoxia SNOMED: 68249057579718796 Qualifiers: Qualified Codes: J96.21 - Acute and chronic respiratory failure with hypoxia (5) HCAP (healthcare-associated pneumonia) ICD Codes: J18.9 - Pneumonia, unspecified organism SNOMED: 185681935, 859691799 (6) Sacral decubitus ulcer ICD Codes: L89.159 - Pressure ulcer of sacral region, unspecified stage SNOMED: 203002976 (7) HTN (hypertension) ICD Codes: I10 - Essential (primary) hypertension SNOMED: 97278472 (8) Chronic vegetative state ICD Codes: R40.3 - Persistent vegetative state SNOMED: 99802444 (9) Chronic respiratory failure ICD Codes: J96.10 - Chronic respiratory failure, unspecified whether with hypoxia or hypercapnia SNOMED: 11563106 (10) Limited mobility ICD Codes: Z74.09 - Other reduced mobility SNOMED: 4671790 Status: stable, progressing Assessment/Plan: vent prn resp rx suctioning as needed wean per pulm hold feeds CT abd GI eval bowel regime reglan monitor residuals cont keppra for szs iv abx per id follow up cultures dc planning on hold Subjective ROS Limited/Unobtainable: Yes Constitutional: Reports: malaise, weakness HEENT: Reports: no symptoms Cardiovascular: Reports: no symptoms Respiratory: Reports: cough, shortness of breath, sputum Gastrointestinal/Abdominal: Reports: difficulty swallowing, vomiting Genitourinary: Reports: no symptoms Neurologic/Psychiatric: Reports: pre-existing deficit, seizure Endocrine: Reports: no symptoms Hematologic/Lymphatic: Reports: anemia Allergies: Coded Allergies: CODEINE (Verified Allergy, Unknown, HIVES, 09/15/09) All Systems: reviewed and negative except above Subjective multiple episodes of vomiting last night, ?aspiration. more congested. feeds on hold. no residuals. per staff no BM x 3 days. on the vent, Objective Last 24 Hour Vital Signs Date Time Temp Pulse Resp B/P (MAP) Pulse Ox O2 Delivery O2 Flow Rate FiO2 02/06/19 06:56 121 14 30 02/06/19 06:55 99 Mechanical Ventilator 30 02/06/19 05:10 116 14 30 02/06/19 04:00 125 02/06/19 04:00 T-piece 8.0 02/06/19 04:00 100.2 119 22 130/67 (88) 99 02/06/19 04:00 35 02/06/19 03:18 122 22 30 02/06/19 02:55 115 14 100 Mechanical Ventilator 8.0 30 116 14 98 02/06/19 02:26 98.6 02/06/19 01:14 118 21 30 02/06/19 01:14 100 Mechanical Ventilator 30 02/06/19 00:00 122 02/06/19 00:00 35 02/06/19 00:00 T-piece 8.0 02/06/19 00:00 97.8 112 22 135/72 (93) 97 02/05/19 23:28 117 27 30 02/05/19 23:27 122 02/05/19 23:26 35 02/05/19 22:53 115 22 100 T-Piece 8.0 30 114 22 95 02/05/19 20:00 98.1 108 20 123/67 (85) 100 02/05/19 20:00 T-piece 8.0 02/05/19 20:00 8.0 35 02/05/19 19:36 112 02/05/19 19:24 100 T-Piece 10.0 30 02/05/19 19:24 113 20 100 T-Piece 8.0 30 114 18 100 02/05/19 16:00 T-piece 8.0 02/05/19 16:00 8.0 35 02/05/19 16:00 99.1 114 24 153/70 (97) 100 02/05/19 15:30 111 02/05/19 14:45 110 20 100 T-Piece 8.0 30 104 20 100 02/05/19 13:00 100 T-Piece 10.0 30 02/05/19 12:00 98.6 101 24 129/74 (92) 100 02/05/19 12:00 8.0 35 02/05/19 12:00 T-piece 8.0 02/05/19 11:45 102 02/05/19 11:00 98 20 100 T-Piece 8.0 30 97 20 100 02/05/19 08:51 102 136/64 02/05/19 08:00 98.2 102 22 136/64 (88) 100 02/05/19 08:00 T-piece 8.0 02/05/19 08:00 8.0 35 02/05/19 07:44 99 Intake and Output 02/05/19 02/06/19 19:00 07:00 Intake Total 1140.000 ml 630 ml Output Total 600 ml 475 ml Balance 540.000 ml 155 ml Free Water 50 ml IV Total 550.000 ml 550 ml Tube Feeding 480 ml 80 ml Other 60 ml Output Urine Total 600 ml 475 ml Laboratory Tests 02/05/19 09:15: Levetiracetam (Keppra) Level [Pending] 02/06/19 03:30: White Blood Count 12.0H, Red Blood Count 3.45L, Hemoglobin 9.4L, Hematocrit 29.4L, Mean Corpuscular Volume 85, Mean Corpuscular Hemoglobin 27.1, Mean Corpuscular Hemoglobin Concent 31.8L, Red Cell Distribution Width 17.0H, Platelet Count 242, Mean Platelet Volume 5.3L, Neutrophils (%) (Auto) 70.5, Lymphocytes (%) (Auto) 17.8L, Monocytes (%) (Auto) 8.1, Eosinophils (%) (Auto) 2.9, Basophils (%) (Auto) 0.7, Sodium Level 130L, Potassium Level 4.9, Chloride Level 95L, Carbon Dioxide Level 26, Anion Gap 9, Blood Urea Nitrogen 18, Creatinine 1.4H, Estimat Glomerular Filtration Rate , Glucose Level 121H, Calcium Level 9.3 Height (Feet): 5 Height (Inches): 5.00 Weight (Pounds): 180 Objective General Appearance: WD/WN, confused Neck: supple Cardiovascular: normal rate, regular rhythm Respiratory/Chest: chest wall non-tender, rhonchi - bilaterally Abdomen: normal bowel sounds, non tender, soft, no organomegaly Edema: no edema noted Arm (L), no edema noted Arm (R), no edema noted Leg (L), no edema noted Leg (R), no edema noted Pedal (L), no edema noted Pedal (R), no edema noted Generalized Neurologic: disoriented, unresponsive, aphasia Irvin Beltrán MD Feb 06, 2019 07:43
[2019-02-06 08:00] VITALS: BP 147/76
[2019-02-06] MEDS: Docusate 100mg/10ml Liq GT SCH ×2 (08:11→18:27)
[2019-02-06] MEDS: levETIRAcetam 500mg/5ml Liquid GT SCH ×2 (08:11→20:04)
[2019-02-06] MEDS: Lactulose 20gm/30ml UDC ORAL SCH ×3 (08:11→18:27)
[2019-02-06] MEDS: Pantoprazole Inj IVP SCH (08:12)
[2019-02-06] MEDS: Heparin 5000 units/ml inj SUBQ SCH ×2 (08:14→20:05)
--- NOTE | 2019-02-06 08:55 | Pulmonology Progress Note ---
Assessment/Plan Assessment/Plan Impression: Sepsis syndrome Pneumonia VDRF, Trach, G tube, Hypertension, Cardiac disease, Dementia, Previous CVA, Seizure disorder, Respiratory failure with hypoxia Anemia Sacral ulcer Plan cultures reviewed SNF meds as is off vent as able; monitor for distress and PRN vent for now- still difficulty to keep off neb therapy and suction Oxygen as needed Monitor labs CT abdomen PUD and DVT prophylaxis Patient is a DNR. No CPR. dc on hold will discuss with all other MDs impression, plan, and exam edited and reviewed in detail care discussed with RN Subjective ROS Limited/Unobtainable: Yes Allergies: Coded Allergies: CODEINE (Verified Allergy, Unknown, HIVES, 09/15/09) Subjective currently back on the ventilator noted congestion and tachypnea supportive care noted orders in place gi issues reviewed Objective Last 24 Hour Vital Signs Date Time Temp Pulse Resp B/P (MAP) Pulse Ox O2 Delivery O2 Flow Rate FiO2 02/06/19 08:12 111 147/76 02/06/19 08:00 97.9 111 14 147/76 (99) 98 02/06/19 06:56 121 14 30 02/06/19 06:55 99 Mechanical Ventilator 30 02/06/19 05:10 116 14 30 02/06/19 04:00 125 02/06/19 04:00 T-piece 8.0 02/06/19 04:00 100.2 119 22 130/67 (88) 99 02/06/19 04:00 35 02/06/19 03:18 122 22 30 02/06/19 02:55 115 14 100 Mechanical Ventilator 8.0 30 116 14 98 02/06/19 02:26 98.6 02/06/19 01:14 118 21 30 02/06/19 01:14 100 Mechanical Ventilator 30 02/06/19 00:00 122 02/06/19 00:00 35 02/06/19 00:00 T-piece 8.0 02/06/19 00:00 97.8 112 22 135/72 (93) 97 02/05/19 23:28 117 27 30 02/05/19 23:27 122 02/05/19 23:26 35 02/05/19 22:53 115 22 100 T-Piece 8.0 30 114 22 95 02/05/19 20:00 98.1 108 20 123/67 (85) 100 02/05/19 20:00 T-piece 8.0 02/05/19 20:00 8.0 35 02/05/19 19:36 112 02/05/19 19:24 100 T-Piece 10.0 30 02/05/19 19:24 113 20 100 T-Piece 8.0 30 114 18 100 02/05/19 16:00 T-piece 8.0 02/05/19 16:00 8.0 35 02/05/19 16:00 99.1 114 24 153/70 (97) 100 02/05/19 15:30 111 02/05/19 14:45 110 20 100 T-Piece 8.0 30 104 20 100 02/05/19 13:00 100 T-Piece 10.0 30 02/05/19 12:00 98.6 101 24 129/74 (92) 100 02/05/19 12:00 8.0 35 02/05/19 12:00 T-piece 8.0 02/05/19 11:45 102 02/05/19 11:00 98 20 100 T-Piece 8.0 30 97 20 100 Intake and Output 02/05/19 02/06/19 19:00 07:00 Intake Total 1140.000 ml 630 ml Output Total 600 ml 475 ml Balance 540.000 ml 155 ml Free Water 50 ml IV Total 550.000 ml 550 ml Tube Feeding 480 ml 80 ml Other 60 ml Output Urine Total 600 ml 475 ml Objective WDWN NAD contracted on vent reduced breath sounds bilaterally with scattered rhonchi [id number] without MRG NABS nontender no HSM no CC minimal nonfocal nonverbal trach and gt reviewed and edited Laboratory Tests 02/05/19 09:15: Levetiracetam (Keppra) Level [Pending] 02/06/19 03:30: White Blood Count 12.0H, Red Blood Count 3.45L, Hemoglobin 9.4L, Hematocrit 29.4L, Mean Corpuscular Volume 85, Mean Corpuscular Hemoglobin 27.1, Mean Corpuscular Hemoglobin Concent 31.8L, Red Cell Distribution Width 17.0H, Platelet Count 242, Mean Platelet Volume 5.3L, Neutrophils (%) (Auto) 70.5, Lymphocytes (%) (Auto) 17.8L, Monocytes (%) (Auto) 8.1, Eosinophils (%) (Auto) 2.9, Basophils (%) (Auto) 0.7, Sodium Level 130L, Potassium Level 4.9, Chloride Level 95L, Carbon Dioxide Level 26, Anion Gap 9, Blood Urea Nitrogen 18, Creatinine 1.4H, Estimat Glomerular Filtration Rate , Glucose Level 121H, Calcium Level 9.3 Current Medications Medications (Trade) Dose Ordered Sig/Maicol Route PRN Reason Start Time Stop Time Status Last Admin Dose Admin Acetaminophen (Tylenol) 650 mg Q4H PRN GT Mild Pain/Temp > 100.5 02/03/19 19:30 03/05/19 19:29 02/06/19 01:56 Acetylcysteine (Mucomyst) 100 mg Q4HRT N 02/01/19 15:00 03/03/19 12:59 02/06/19 02:51 Albuterol/ Ipratropium (Albuterol/ Ipratropium) 3 ml Q4HRT [facility] 02/01/19 15:00 02/06/19 14:59 02/06/19 02:51 Amlodipine Besylate (Norvasc) 10 mg DAILY GT 01/24/19 09:00 02/23/19 08:59 02/06/19 08:12 Ascorbic Acid (Vitamin C) 250 mg DAILY ORAL 01/25/19 09:00 02/24/19 08:59 02/05/19 08:51 Barium Sulfate (Readi-Cat 2) 450 ml NOW PRN ORAL Radiology Procedure 02/06/19 07:45 02/08/19 07:40 Bisacodyl (Dulcolax) 10 mg PRN PRN RECTAL Constipation 01/24/19 05:30 02/23/19 05:29 Dextrose/Sodium Chloride 1,000 ml @ 75 mls/hr [id number] IV 02/06/19 07:45 03/08/19 07:44 Docusate Sodium (Colace) 100 mg DAILY PRN GT Constipation 01/24/19 05:45 02/23/19 05:29 Docusate Sodium (Colace) 100 mg TWICE A DAY GT 02/03/19 09:00 03/05/19 08:59 02/06/19 08:11 Famotidine (Pepcid) 20 mg DAILY GT 01/24/19 09:00 02/23/19 08:59 02/05/19 08:51 Folic Acid (Folate) 1 mg DAILY GT 01/24/19 09:00 02/23/19 08:59 02/06/19 08:12 Heparin Sodium (Porcine) (Heparin 5000 units/ml) 5,000 units EVERY 12 HOURS SUBQ 01/24/19 09:00 02/23/19 08:59 02/06/19 08:14 Lactulose (Cephulac) 30 gm THREE TIMES A DAY ORAL 02/06/19 09:00 03/08/19 08:59 02/06/19 08:11 Levetiracetam (Keppra) 750 mg Q12HR GT 01/28/19 21:00 02/23/19 08:59 02/06/19 08:11 Metoclopramide HCl (Reglan) 10 mg Q8H PRN IVP Nausea & Vomiting 02/03/19 09:00 03/05/19 08:59 02/06/19 03:12 Ondansetron HCl (Zofran) 4 mg Q6H PRN GT Nausea & Vomiting 01/24/19 05:30 02/23/19 05:29 02/05/19 23:22 Pantoprazole (Protonix) 40 mg DAILY IVP 02/04/19 09:00 03/06/19 08:59 02/06/19 08:12 Polymyxin B Sulfate [id number] units/Dextrose 550 ml @ 366.667 mls/hr EVERY 12 HOURS IV 02/01/19 17:00 02/08/19 16:59 02/05/19 20:11 Amaury Chan MD Feb 06, 2019 08:55
[2019-02-06] MEDS: Ascorbic Acid 500mg tab ORAL SCH (09:07)
[2019-02-06] MEDS: D5W IV SCH ×2 (09:07→20:09)
[2019-02-06] MEDS: POLYMYXIN B SULFATE IV SCH ×2 (09:07→20:09)
[2019-02-06] MEDS: D5NS 1,000 ML IV SCH ×2 (09:07→20:05)
--- NOTE | 2019-02-06 11:15 | NUR ---
NURSE NOTES: Last half on contrast given to patient, tolerated well. No vomiting noted.
--- NOTE | 2019-02-06 11:18 | Infectious Diseases Prog Note ---
Assessment/Plan Assessment/Plan A 1. Acinetobacter, pseudomonas & Klebsiella pneumonia 2. respiratory failure 3. hypertension 4. CVA 5. dementia 6. sacral decubitus ulcer 7. rectal VRE colonization 8. Anemia 9. KPC UTI P 1. continue Polymyxin B X 1 day 2. CXR to rule out new aspiration Subjective ROS Limited/Unobtainable: Yes Constitutional: Reports: fever, other - Ivfd=133.2 Respiratory: Reports: other - was put on ventilator Gastrointestinal/Abdominal: Reports: vomiting Allergies: Coded Allergies: CODEINE (Verified Allergy, Unknown, HIVES, 09/15/09) Objective Vital Signs Last 24 Hour Vital Signs Date Time Temp Pulse Resp B/P (MAP) Pulse Ox O2 Delivery O2 Flow Rate FiO2 02/06/19 09:13 111 17 30 02/06/19 08:12 111 147/76 02/06/19 08:00 110 02/06/19 08:00 35 02/06/19 08:00 97.9 111 14 147/76 (99) 98 02/06/19 08:00 Mechanical Ventilator 02/06/19 06:56 121 14 30 02/06/19 06:55 99 Mechanical Ventilator 30 02/06/19 05:10 116 14 30 02/06/19 04:00 125 02/06/19 04:00 T-piece 8.0 02/06/19 04:00 100.2 119 22 130/67 (88) 99 02/06/19 04:00 35 02/06/19 03:18 122 22 30 02/06/19 02:55 115 14 100 Mechanical Ventilator 8.0 30 116 14 98 02/06/19 02:26 98.6 02/06/19 01:14 118 21 30 02/06/19 01:14 100 Mechanical Ventilator 30 02/06/19 00:00 122 02/06/19 00:00 35 02/06/19 00:00 T-piece 8.0 02/06/19 00:00 97.8 112 22 135/72 (93) 97 02/05/19 23:28 117 27 30 02/05/19 23:27 122 02/05/19 23:26 35 02/05/19 22:53 115 22 100 T-Piece 8.0 30 114 22 95 02/05/19 20:00 98.1 108 20 123/67 (85) 100 02/05/19 20:00 T-piece 8.0 02/05/19 20:00 8.0 35 02/05/19 19:36 112 02/05/19 19:24 100 T-Piece 10.0 30 02/05/19 19:24 113 20 100 T-Piece 8.0 30 114 18 100 02/05/19 16:00 T-piece 8.0 02/05/19 16:00 8.0 35 02/05/19 16:00 99.1 114 24 153/70 (97) 100 02/05/19 15:30 111 02/05/19 14:45 110 20 100 T-Piece 8.0 30 104 20 100 02/05/19 13:00 100 T-Piece 10.0 30 02/05/19 12:00 98.6 101 24 129/74 (92) 100 02/05/19 12:00 8.0 35 02/05/19 12:00 T-piece 8.0 02/05/19 11:45 102 Height (Feet): 5 Height (Inches): 5.00 Weight (Pounds): 180 HEENT: status post trach Respiratory/Chest: lungs clear, other - on ventilator Cardiovascular: tachycardia Abdomen: soft, non tender, other - GT in place Extremities: other - hand's edema Neurologic/Psychiatric: unresponsiveness, aphasia Musculoskeletal: atrophy Laboratory Tests Test 02/06/19 03:30 White Blood Count 12.0 K/UL (4.8-10.8) H Red Blood Count 3.45 M/UL (4.20-5.40) L Hemoglobin 9.4 G/DL (12.0-16.0) L Hematocrit 29.4 % (37.0-47.0) L Mean Corpuscular Volume 85 FL (80-99) Mean Corpuscular Hemoglobin 27.1 PG (27.0-31.0) Mean Corpuscular Hemoglobin Concent 31.8 G/DL (32.0-36.0) L Red Cell Distribution Width 17.0 % (11.6-14.8) H Platelet Count 242 K/UL (150-450) Mean Platelet Volume 5.3 FL (6.5-10.1) L Neutrophils (%) (Auto) 70.5 % (45.0-75.0) Lymphocytes (%) (Auto) 17.8 % (20.0-45.0) L Monocytes (%) (Auto) 8.1 % (1.0-10.0) Eosinophils (%) (Auto) 2.9 % (0.0-3.0) Basophils (%) (Auto) 0.7 % (0.0-2.0) Sodium Level 130 MMOL/L (136-145) L Potassium Level 4.9 MMOL/L (3.5-5.1) Chloride Level 95 MMOL/L (98-107) L Carbon Dioxide Level 26 MMOL/L (21-32) Anion Gap 9 mmol/L (5-15) Blood Urea Nitrogen 18 mg/dL (7-18) Creatinine 1.4 MG/DL (0.55-1.30) H Estimat Glomerular Filtration Rate mL/min (>60) Glucose Level 121 MG/DL (74-106) H Calcium Level 9.3 MG/DL (8.5-10.1) Current Medications Medications (Trade) Dose Ordered Sig/Maicol Route PRN Reason Start Time Stop Time Status Last Admin Dose Admin Acetaminophen (Tylenol) 650 mg Q4H PRN GT Mild Pain/Temp > 100.5 02/03/19 19:30 03/05/19 19:29 02/06/19 01:56 Acetylcysteine (Mucomyst) 100 mg Q4HRT N 02/01/19 15:00 03/03/19 12:59 02/06/19 11:10 Albuterol/ Ipratropium (Albuterol/ Ipratropium) 3 ml Q4HRT [facility] 02/01/19 15:00 02/06/19 14:59 02/06/19 11:10 Amlodipine Besylate (Norvasc) 10 mg DAILY GT 01/24/19 09:00 02/23/19 08:59 02/06/19 08:12 Ascorbic Acid (Vitamin C) 250 mg DAILY ORAL 01/25/19 09:00 02/24/19 08:59 02/06/19 09:07 Barium Sulfate (Readi-Cat 2) 450 ml NOW PRN ORAL Radiology Procedure 02/06/19 07:45 02/08/19 07:40 Bisacodyl (Dulcolax) 10 mg PRN PRN RECTAL Constipation 01/24/19 05:30 02/23/19 05:29 Dextrose/Sodium Chloride 1,000 ml @ 75 mls/hr [id number] IV 02/06/19 07:45 03/08/19 07:44 02/06/19 09:07 Docusate Sodium (Colace) 100 mg DAILY PRN GT Constipation 01/24/19 05:45 02/23/19 05:29 Docusate Sodium (Colace) 100 mg TWICE A DAY GT 02/03/19 09:00 03/05/19 08:59 02/06/19 08:11 Famotidine (Pepcid) 20 mg DAILY GT 01/24/19 09:00 02/23/19 08:59 02/06/19 09:07 Folic Acid (Folate) 1 mg DAILY GT 01/24/19 09:00 02/23/19 08:59 02/06/19 08:12 Heparin Sodium (Porcine) (Heparin 5000 units/ml) 5,000 units EVERY 12 HOURS SUBQ 01/24/19 09:00 02/23/19 08:59 02/06/19 08:14 Lactulose (Cephulac) 30 gm THREE TIMES A DAY ORAL 02/06/19 09:00 03/08/19 08:59 02/06/19 08:11 Levetiracetam (Keppra) 750 mg Q12HR GT 01/28/19 21:00 02/23/19 08:59 02/06/19 08:11 Metoclopramide HCl (Reglan) 10 mg Q8H PRN IVP Nausea & Vomiting 02/03/19 09:00 03/05/19 08:59 02/06/19 03:12 Ondansetron HCl (Zofran) 4 mg Q6H PRN GT Nausea & Vomiting 01/24/19 05:30 02/23/19 05:29 02/06/19 10:30 Pantoprazole (Protonix) 40 mg DAILY IVP 02/04/19 09:00 03/06/19 08:59 02/06/19 08:12 Polymyxin B Sulfate [id number] units/Dextrose 550 ml @ 366.667 mls/hr EVERY 12 HOURS IV 02/01/19 17:00 02/08/19 16:59 02/06/19 09:07 Chauncey Liriano MD Feb 06, 2019 11:18
[2019-02-06 12:00] VITALS: BP 119/66
--- NOTE | 2019-02-06 13:00 | NUR ---
NURSE NOTES: Patient transported to CT scan accompanied by RN, RT and transporters, no vomiting noted before, during and after scan. Tolerated procedure well. Will continue to monitor.
--- NOTE | 2019-02-06 13:18 | NUR ---
RD ASSESSMENT & RECOMMENDATIONS SEE CARE ACTIVITY FOR COMPLETE ASSESSMENT DAILY ESTIMATED NEEDS: Needs based on Pulmonary, wounds, bedbound/ 60kg adj 25-28 kcals/kg 2307-7111 total kcals 1.25-2 g protein/kg 75-120 g total protein 25-30 mL/kg 1956-6846 total fluid mLs NUTRITION DIAGNOSIS: * Swallowing difficulty R/T respiratory status as evidenced by pt on T-collar, now back the vent, PEG dep, TF held at this time due to episodes of vomiting. * Increased kcal/prot needs R/T wound healing as evidenced by BL buttocks and sacral wound photos, refer to eval. CURRENT TF:Jevity 1.2 @ 40ml/hr x 24 hrs -> TF ORDER DC'ED THIS AM ENTERAL NUTRITION RECOMMENDATIONS: Osmolite 1.2 @ 55ml/hr x 24 hrs + Prosource 1pkt QD to provide 1320ml, 1584kcal, 73g +11g prot, 1060ml free water - Once medically appropriate to resume TF, rec to initiate isotonic formula of Osmolite 1.2 for possible improved tolerance - Initiate Osmolite 1.2 @ 25ml/hr x 6hrs, advance 10ml q 4-6 hrs as tolerated to goal rate - W/ good TF tolerance at goal, add Prosource 1pkt daily to meet protein needs - Flush per MD/ HOB over 30 degrees ADDITIONAL RECOMMENDATIONS: 1) Re-calibrated bedscale wt for accurate CBW 2) Wound healing: Add Cristian 1pkt BID + MVI x 1 Pt w/ full thickness resolving wound 3) Monitor lytes, replete as needed 4) Monitor NPO status, ability to resume TF. -> held on and off due to vomitting since 02/02, TF dc'ed on 02/06.
--- NOTE | 2019-02-06 13:37 | NUR ---
CASE MANAGEMENT:REVIEW 02/06/19 SI: SEPSIS. KPC PNA SACRAL DECUB. CHRONIC RESP FAILURE 100.2 119 24 119/66 100% ON VENT SUPPORT WBC+12.0 NA-130 CR+1.4 IS: IV POLYMYXIN Q12 IV PROTONIX QD MUCOMYST INH Q4HRS DUONEB INH Q4HRS KEPPRA GT Q12 NORVASC GT QD HEPARIN SQ Q12 FOLATE GT QD : STEP DOWN UNIT DCP: FROM [facility] Addendum: 02/06/19 at 1350 by STANISLAV TAYLORN PLAN: RE-CULTURE
--- NOTE | 2019-02-06 14:28 | Diagnostic Imaging Report ---
Indication: Dyspnea Comparison: None A single view chest radiograph was obtained. Findings: Interstitial vascular prominence demonstrated within the lungs are low in volume. Heart size is probably normal. Bones are osteopenic. IMPRESSION: Suspected interstitial edema.
--- NOTE | 2019-02-06 15:00 | NUR ---
NURSE NOTES: No vomiting noted, HOB kept elevated for aspiration precaution. Will continue to monitor. Family member at bedside.
--- NOTE | 2019-02-06 15:36 | Diagnostic Imaging Report ---
Indication: Abdominal pain Technique: Continuous helical transaxial imaging of the abdomen and pelvis was obtained from the lung bases to the pubic symphysis. No intravenous contrast was administered. Coronal 2-D reformats were also obtained. Automatic Exposure Control was utilized. Total Dose length Product (DLP): 1016.[address] Dose Index Volume (CTDIvol): 18.3 mGy Comparison: none Findings: There is ill-defined density at the left lung base which may be pneumonia. Correlate clinically. There is extensive artifact limiting evaluation on top of a large body habitus related to beam starvation artifact. Hiatal hernia is present. Gastrostomy tube is noted and appears to be in good position. There is a broad-based hernia involving the ventral abdominal wall. There is no evidence of bowel obstruction and no free fluid identified. There is a left inguinal hernia containing fat. The appendix is seen and appears normal. Mild aortoiliac calcifications are present. There is a suggestion of a left renal mass which may be cystic but not evaluated adequately on this exam with an area of prominence measuring about 3.5 cm. Ultrasound done previously 12/15/2018 indicates this is likely a cyst. There is a suggestion of a midline sacral decubitus ulcer as well as a dependent ulcer in the right side posterior to the ischium. Please correlate clinically. There is no evidence of abscess. IMPRESSION: Limited evaluation as discussed above. Left basal infiltrate suspected. Correlate for pneumonia. Suggestion of a left renal cyst measuring 3.5 cm. Corresponding cyst likely demonstrated on previous ultrasound performed 12/15/2018. Gastrostomy Atherosclerotic disease Normal appendix Left inguinal hernia containing fat Sacral decubitus ulceration suspected. No evidence of abscess. Correlate clinically. The CT scanner at [facility] is accredited by the [employer] and the scans are performed using dose optimization techniques as appropriate to a performed exam including Automatic Exposure control.
[2019-02-06 16:00] VITALS: BP 145/70
--- NOTE | 2019-02-06 18:00 | NUR ---
NURSE'S NOTES: Patient with loose BM, patient is on lactulose for encephalopathy and docusate. BM noted to be dark green colored, perineal care provided. Patient repositioned and provided with oral care. No vomiting episode noted. Daughter remains at bedside.
--- NOTE | 2019-02-06 19:10 | General Progress Note ---
Assessment/Plan Status: stable, progressing Assessment/Plan: Assessment - N/V overnight, ? etiology, CT negative for obtruction - Anemia with OB (-) stools - Resp failure, s/p Trach - dysphagia, s/p PWG - OBS Recommendations - hold feeds overnight - laxative - retry TF in am, slowly - PPI - Elevate HOB Subjective Allergies: Coded Allergies: CODEINE (Verified Allergy, Unknown, HIVES, 09/15/09) Objective Last 24 Hour Vital Signs Date Time Temp Pulse Resp B/P (MAP) Pulse Ox O2 Delivery O2 Flow Rate FiO2 02/06/19 17:20 121 15 30 02/06/19 16:00 113 02/06/19 16:00 99.0 116 14 145/70 (95) 100 02/06/19 16:00 35 02/06/19 16:00 Mechanical Ventilator 02/06/19 14:55 107 14 100 Mechanical Ventilator 30 111 15 30 02/06/19 13:29 100 Mechanical Ventilator 30 02/06/19 13:25 102 17 30 02/06/19 12:00 110 02/06/19 12:00 99.3 111 24 119/66 (83) 100 02/06/19 12:00 35 02/06/19 12:00 Mechanical Ventilator 02/06/19 11:10 103 14 100 Mechanical Ventilator 30 105 14 30 02/06/19 09:13 111 17 30 02/06/19 08:12 111 147/76 02/06/19 08:00 110 02/06/19 08:00 35 02/06/19 08:00 97.9 111 14 147/76 (99) 98 02/06/19 08:00 Mechanical Ventilator 02/06/19 06:56 121 14 30 02/06/19 06:55 99 Mechanical Ventilator 30 02/06/19 05:10 116 14 30 02/06/19 04:00 125 02/06/19 04:00 T-piece 8.0 02/06/19 04:00 100.2 119 22 130/67 (88) 99 02/06/19 04:00 35 02/06/19 03:18 122 22 30 02/06/19 02:55 115 14 100 Mechanical Ventilator 8.0 30 116 14 98 02/06/19 02:26 98.6 02/06/19 01:14 118 21 30 02/06/19 01:14 100 Mechanical Ventilator 30 02/06/19 00:00 122 02/06/19 00:00 35 02/06/19 00:00 T-piece 8.0 02/06/19 00:00 97.8 112 22 135/72 (93) 97 02/05/19 23:28 117 27 30 02/05/19 23:27 122 02/05/19 23:26 35 02/05/19 22:53 115 22 100 T-Piece 8.0 30 114 22 95 02/05/19 20:00 98.1 108 20 123/67 (85) 100 02/05/19 20:00 T-piece 8.0 02/05/19 20:00 8.0 35 02/05/19 19:36 112 02/05/19 19:24 100 T-Piece 10.0 30 02/05/19 19:24 113 20 100 T-Piece 8.0 30 114 18 100 Intake and Output 02/05/19 02/06/19 19:00 07:00 Intake Total 1140.000 ml 630 ml Output Total 600 ml 475 ml Balance 540.000 ml 155 ml Free Water 50 ml IV Total 550.000 ml 550 ml Tube Feeding 480 ml 80 ml Other 60 ml Output Urine Total 600 ml 475 ml Laboratory Tests 02/06/19 03:30: White Blood Count 12.0H, Red Blood Count 3.45L, Hemoglobin 9.4L, Hematocrit 29.4L, Mean Corpuscular Volume 85, Mean Corpuscular Hemoglobin 27.1, Mean Corpuscular Hemoglobin Concent 31.8L, Red Cell Distribution Width 17.0H, Platelet Count 242, Mean Platelet Volume 5.3L, Neutrophils (%) (Auto) 70.5, Lymphocytes (%) (Auto) 17.8L, Monocytes (%) (Auto) 8.1, Eosinophils (%) (Auto) 2.9, Basophils (%) (Auto) 0.7, Sodium Level 130L, Potassium Level 4.9, Chloride Level 95L, Carbon Dioxide Level 26, Anion Gap 9, Blood Urea Nitrogen 18, Creatinine 1.4H, Estimat Glomerular Filtration Rate , Glucose Level 121H, Calcium Level 9.3 Height (Feet): 5 Height (Inches): 5.00 Weight (Pounds): 180 Celio Vaughan MD Feb 06, 2019 19:10
--- NOTE | 2019-02-06 19:30 | NUR ---
HAND-OFF: Report given to JEANNINE Robertson.
[2019-02-06 20:00] VITALS: BP 111/58
--- NOTE | 2019-02-06 20:00 | NUR ---
NURSE NOTES: Patient's temperature on assessment was 100.2 Degrees Fahrenheit, placed ice packs on patient for fever. Will continue to monitor.
--- NOTE | 2019-02-06 22:23 | Surgery Progress Note ---
Surgery Progress Note Subjective Symptoms: other Additional Comments no acute events Objective Last 24 Hour Vital Signs Date Time Temp Pulse Resp B/P (MAP) Pulse Ox O2 Delivery O2 Flow Rate FiO2 02/06/19 20:00 124 02/06/19 19:35 125 23 30 02/06/19 19:34 98 Mechanical Ventilator 30 02/06/19 17:20 121 15 30 02/06/19 16:00 113 02/06/19 16:00 99.0 116 14 145/70 (95) 100 02/06/19 16:00 35 02/06/19 16:00 Mechanical Ventilator 02/06/19 14:55 107 14 100 Mechanical Ventilator 30 111 15 30 02/06/19 13:29 100 Mechanical Ventilator 30 02/06/19 13:25 102 17 30 02/06/19 12:00 110 02/06/19 12:00 99.3 111 24 119/66 (83) 100 02/06/19 12:00 35 02/06/19 12:00 Mechanical Ventilator 02/06/19 11:10 103 14 100 Mechanical Ventilator 30 105 14 30 02/06/19 09:13 111 17 30 02/06/19 08:12 111 147/76 02/06/19 08:00 110 02/06/19 08:00 35 02/06/19 08:00 97.9 111 14 147/76 (99) 98 02/06/19 08:00 Mechanical Ventilator 02/06/19 06:56 121 14 30 02/06/19 06:55 99 Mechanical Ventilator 30 02/06/19 05:10 116 14 30 02/06/19 04:00 125 02/06/19 04:00 T-piece 8.0 02/06/19 04:00 100.2 119 22 130/67 (88) 99 02/06/19 04:00 35 02/06/19 03:18 122 22 30 02/06/19 02:55 115 14 100 Mechanical Ventilator 8.0 30 116 14 98 02/06/19 02:26 98.6 02/06/19 01:14 118 21 30 02/06/19 01:14 100 Mechanical Ventilator 30 02/06/19 00:00 122 02/06/19 00:00 35 02/06/19 00:00 T-piece 8.0 02/06/19 00:00 97.8 112 22 135/72 (93) 97 02/05/19 23:28 117 27 30 02/05/19 23:27 122 02/05/19 23:26 35 02/05/19 22:53 115 22 100 T-Piece 8.0 30 114 22 95 I&O Intake and Output 02/05/19 02/06/19 19:00 07:00 Intake Total 1140.000 ml 630 ml Output Total 600 ml 475 ml Balance 540.000 ml 155 ml Free Water 50 ml IV Total 550.000 ml 550 ml Tube Feeding 480 ml 80 ml Other 60 ml Output Urine Total 600 ml 475 ml Dressing: saturated Wound: other Drains: other Cardiovascular: RSR Respiratory: decreased breath sounds Abdomen: soft, present bowel sounds, non-distended Extremities: no cyanosis, other Laboratory Tests Test 02/06/19 03:30 White Blood Count 12.0 K/UL (4.8-10.8) H Red Blood Count 3.45 M/UL (4.20-5.40) L Hemoglobin 9.4 G/DL (12.0-16.0) L Hematocrit 29.4 % (37.0-47.0) L Mean Corpuscular Volume 85 FL (80-99) Mean Corpuscular Hemoglobin 27.1 PG (27.0-31.0) Mean Corpuscular Hemoglobin Concent 31.8 G/DL (32.0-36.0) L Red Cell Distribution Width 17.0 % (11.6-14.8) H Platelet Count 242 K/UL (150-450) Mean Platelet Volume 5.3 FL (6.5-10.1) L Neutrophils (%) (Auto) 70.5 % (45.0-75.0) Lymphocytes (%) (Auto) 17.8 % (20.0-45.0) L Monocytes (%) (Auto) 8.1 % (1.0-10.0) Eosinophils (%) (Auto) 2.9 % (0.0-3.0) Basophils (%) (Auto) 0.7 % (0.0-2.0) Sodium Level 130 MMOL/L (136-145) L Potassium Level 4.9 MMOL/L (3.5-5.1) Chloride Level 95 MMOL/L (98-107) L Carbon Dioxide Level 26 MMOL/L (21-32) Anion Gap 9 mmol/L (5-15) Blood Urea Nitrogen 18 mg/dL (7-18) Creatinine 1.4 MG/DL (0.55-1.30) H Estimat Glomerular Filtration Rate mL/min (>60) Glucose Level 121 MG/DL (74-106) H Calcium Level 9.3 MG/DL (8.5-10.1) Plan Problems: (1) Sacral decubitus ulcer Assessment & Plan: This is a 83-year-old female with multiple medical committees that is currently admitted for medical care and management and identified to have multiple wounds requiring care. On admission patient noted to have a resolved sacral decubitus ulcer. Has had prior care and is well-healed at this time. Will ensure it does not open up again. Patient has a right ischial decubitus ulcer that is resolved. Scar intact and well formed. Will monitor to ensure it does not open up again. Patient has a left ischial decubitus ulcer that can be identified to be stage IV with palpable bone that has been resolving as noted by the periwound tissue and scar but open area approximately 1 cm x 1.5 cm few millimeters deep to bone identified. Unsure if this is been to be completely healed prior and has since opened or if has been healing at this level. No foul odor no drainage was unsure local wound care until healed Bilateral heels soft without signs of injury Resolving pressure injury L ischium(L)1.8cm x (W)1cm.Scattered biofilm at base of wound. Edges flat and adherent with surrounding hyperpigmentation. No odor or exudate noted. Sacrum is pale pink with surrounding hyperpigmentation. Hyperpigmentation R ischium with small sheared area centrally.No areas of erythema or exudate noted. Both heels are soft but blanchable. Skin Assessed under collar of trach and no evidence of skin breakdown noted. All wound Tx. are effective and continued as ordered. Pt ahs an APM/Belén mattress overlay and is being repositioned per protocols and per tolerance.No new skin concerns noted. Treatment plan: Please apply skin protectant and optifoam to sacral area. Change every 3 days Please apply skin protectant and optifoam to right ischial area. Change every 3 days Please apply Thera honey infused gauze to small opening in the left ischial wound bed followed by skin protectant in the periwound and up to foam. Change daily as needed saturation Offload pressure from heels with pillow Air soft mattress Turn every 2 hours Nutritional optimization We will monitor follow with recommendations (2) Sepsis Assessment & Plan: IV abx as per ID trend labs wounds unlikely etiology likely respiratory improving labs noted DAILY ESTIMATED NEEDS: Needs based on Critical care, wounds/ 60kg adj 22-28 kcals/kg 5182-5988 total kcals 1.25-2 g protein/kg 75-120 g total protein 25-30 mL/kg 8094-2453 total fluid mLs NUTRITION DIAGNOSIS: * Swallowing difficulty R/T respiratory status as evidenced by trach/vent dep, PEG dep. * Increased kcal/prot needs R/T wound healing as evidenced by BL buttocks and sacral wound photos, pending evaluation. CURRENT TF:Glucerna 1.5 @ 30ml/hr x 24 hrs ENTERAL NUTRITION RECOMMENDATIONS: Jevity 1.2 @ 55ml/hr x 24 hrs + Prosource 1pkt QD to provide 1320ml, 1584kcal, 73g +11g prot, 1060ml free water - Rec to continue FORESTRY AID TF of Jevity 1.2 - Rec Jevity 1.2 @ goal rate of 55ml/hr x 24 hrs - Add Prosource 1pkt daily to meet protein needs - Flush per MD/ HOB over 30 degrees ADDITIONAL RECOMMENDATIONS: 1) Re-calibrated bedscale wt for accurate CBW 2) Wound healing: Add Vit C 250mg QD + Cristian 1pkt BID : f/up w/ WC eval 3) Monitor lytes, replete as needed (3) Feeding by G-tube Assessment & Plan: cont tube feeds as tolerated (4) Chronic vegetative state Assessment & Plan: incontinence of urine and stool. can soil dressings. nurses doing great job with monitoring and changing prn (5) Leukocytosis Walter Madera Feb 06, 2019 22:23
[2019-02-07] VITALS: BP 129/65
[2019-02-07] MEDS: Acetaminophen 650mg/20.3ml GT PRN (00:13)
--- NOTE | 2019-02-07 02:30 | Progress Note ---
DATE: 02/06/2019 CARDIOLOGY PROGRESS NOTE SUBJECTIVE: The patient's condition is deteriorating. She continues to have positive cultures of multiple pathogens. She is on broad-spectrum antimicrobials. She is unresponsive on ventilator support. She continues to have worsening sinus tachycardia. OBJECTIVE: VITAL SIGNS: Blood pressure parameters are in stable range. NECK: Thick secretions. LUNGS: Bilateral rhonchi. HEART: Regular rhythm. Rapid rate. Normal S1 and S2. ABDOMEN: Soft. G-tube intact. EXTREMITIES: Trace edema. LABORATORY DATA: Labs reviewed. Sodium 130, potassium 4.9, chloride 95, bicarb 26, BUN 18, and creatinine 1.4. White count 12 and hemoglobin 9.4. IMPRESSION: 1. Klebsiella pneumoniae. 2. Pseudomonas pneumonia. 3. Sepsis. 4. Anemia. 5. Secondary sinus tachycardia. 6. Respiratory failure. 7. Hyponatremia. 8. Hypertensive heart disease. 9. Acute on chronic diastolic congestive heart failure. PLAN: 1. Reviewed chest x-ray. 2. Saline hydration with caution until feedings resumed. 3. Antimicrobials per Infectious Disease product safety consultant. 4. Add beta-martha. Lower dose of amlodipine with hold parameter in place. Bg Hagen M.D. DR: CHARLEE JOB#: [id number] CC:
[2019-02-07 04:00] VITALS: BP 108/62
[2019-02-07 05:25] LABS: ALANINE AMINOTRANSFERASE 55 U/L (12-78); ALBUMIN/GLOBULIN RATIO 0.4 (1.0-2.7); ALKALINE PHOSPHATASE 215 U/L (46-116); ANION GAP 14 mmol/L (5-15); ASPARTATE AMINO TRANSFERASE 44 U/L (15-37); BILIRUBIN,TOTAL 0.4 MG/DL (0.2-1.0); BLOOD UREA NITROGEN 19 mg/dL (7-18); CALCIUM 8.6 MG/DL (8.5-10.1); CARBON DIOXIDE 21 MMOL/L (21-32); CHLORIDE 95 MMOL/L (98-107); CREATININE 1.8 MG/DL (0.55-1.30); SODIUM 130 MMOL/L (136-145)
--- NOTE | 2019-02-07 07:00 | NUR ---
RESPIRATORY NOTE: Mucomyst not given due to Duoneb not available. Waiting for Doctor's order.
--- NOTE | 2019-02-07 07:20 | NUR ---
HAND-OFF: Report given to Jennifer PAEZ. Patient in stable condition.
[2019-02-07 08:00] VITALS: BP 103/49
--- NOTE | 2019-02-07 08:00 | NUR ---
NURSE NOTES: Received change of shift report from Marcelo RN. Pt is lethargic, obtunded, withdraws to pain only and opens eyes to pain, however does not follow with eyes. Pt is on trach to vent, Shiley 6.0 with vent settings AC 14, VT450, Peep 5.0, FIO2 30% with 100% O2Sat with bilateral diminished and left upper lobe rhonchi on auscultation. Heart rate is now in the 80's. Temp 99.5F axillary. Pt has one peripheral IV access on right hand #24G infusing IV fluid D5 NS at 75ml/hour. Pt has GT in place, currently clamped, feeding on hold. Current residual now is 60ml greenish watery output. Skin has sacral, bilateral hips and left buttocks wounds, covered with optifoam dressings, dry/intact. Pt is on pressure releasing mattress, with head of bed at 30degrees, in lowest position, three side rails up, side rails padded, and call light within reach. Will continue to monitor pt and follow plan of care.
[2019-02-07] MEDS: Docusate 100mg/10ml Liq GT SCH (08:30)
[2019-02-07] MEDS: Lactulose 20gm/30ml UDC ORAL SCH (08:32)
[2019-02-07] MEDS: levETIRAcetam 500mg/5ml Liquid GT SCH ×2 (08:32→20:51)
[2019-02-07] MEDS: Pantoprazole Inj IVP SCH (08:32)
[2019-02-07] MEDS: Ascorbic Acid 500mg tab ORAL SCH (08:33)
[2019-02-07] MEDS: Heparin 5000 units/ml inj SUBQ SCH ×2 (08:34→20:52)
--- NOTE | 2019-02-07 08:53 | General Progress Note ---
Assessment/Plan Status: stable, progressing Assessment/Plan: Assessment/Plan Status: stable, progressing Assessment/Plan: Assessment - N/V overnight, ? etiology, CT negative for obstruction - Anemia with OB (-) stools - Resp failure, s/p Trach - dysphagia, s/p PWG - OBS Recommendations - hold feeds - laxative - retry TF in am, slowly - PPI - Elevate HOB -dc all laxatives -add reglan Subjective ROS Limited/Unobtainable: No Allergies: Coded Allergies: CODEINE (Verified Allergy, Unknown, HIVES, 09/15/09) Objective Last 24 Hour Vital Signs Date Time Temp Pulse Resp B/P (MAP) Pulse Ox O2 Delivery O2 Flow Rate FiO2 02/07/19 08:33 90 108/62 02/07/19 07:04 90 14 30 02/07/19 07:03 99 Mechanical Ventilator 30 02/07/19 05:29 95 15 30 02/07/19 04:00 Mechanical Ventilator 02/07/19 04:00 35 02/07/19 04:00 98.1 102 22 108/62 (77) 98 02/07/19 03:58 99 02/07/19 03:20 103 20 30 02/07/19 02:28 111 112/59 02/07/19 01:37 100 Mechanical Ventilator 30 02/07/19 01:36 114 25 30 02/07/19 00:43 100.0 02/07/19 00:00 120 02/07/19 00:00 100.5 120 20 129/65 (86) 99 02/07/19 00:00 Mechanical Ventilator 02/06/19 23:08 122 16 30 02/06/19 21:23 123 20 30 02/06/19 20:00 35 02/06/19 20:00 Mechanical Ventilator 02/06/19 20:00 100.2 126 21 111/58 (75) 99 02/06/19 20:00 124 02/06/19 19:35 125 23 30 02/06/19 19:34 98 Mechanical Ventilator 30 02/06/19 17:20 121 15 30 02/06/19 16:00 113 02/06/19 16:00 99.0 116 14 145/70 (95) 100 02/06/19 16:00 35 02/06/19 16:00 Mechanical Ventilator 02/06/19 14:55 107 14 100 Mechanical Ventilator 30 111 15 30 02/06/19 13:29 100 Mechanical Ventilator 30 02/06/19 13:25 102 17 30 02/06/19 12:00 110 02/06/19 12:00 99.3 111 24 119/66 (83) 100 02/06/19 12:00 35 02/06/19 12:00 Mechanical Ventilator 02/06/19 11:10 103 14 100 Mechanical Ventilator 30 105 14 30 02/06/19 09:13 111 17 30 Intake and Output 02/06/19 02/07/19 19:00 07:00 Intake Total 1607.500 ml 768.750 ml Balance 1607.500 ml 768.750 ml IV Total 1037.500 ml 768.750 ml Other 570 ml # Bowel Movements 4 4 Laboratory Tests 02/07/19 03:45: Sodium Level 130L, Potassium Level 4.0, Chloride Level 95L, Carbon Dioxide Level 21, Anion Gap 14, Blood Urea Nitrogen 19H, Creatinine 1.8H, Estimat Glomerular Filtration Rate , Glucose Level 107H, Calcium Level 8.6, Total Bilirubin 0.4, Aspartate Amino Transf (AST/SGOT) 44H, Alanine Aminotransferase ( ALT/SGPT) 55, Alkaline Phosphatase 215H, Total Protein 7.4, Albumin 2.0L, Globulin 5.4, Albumin/Globulin Ratio 0.4L Height (Feet): 5 Height (Inches): 5.00 Weight (Pounds): 180 General Appearance: lethargic EENT: normal ENT inspection Neck: supple Cardiovascular: normal rate Respiratory/Chest: decreased breath sounds Abdomen: normal bowel sounds, non tender, soft Extremities: non-tender Gary Guzman MD Feb 07, 2019 08:53
[2019-02-07] MEDS ORDERED: Metoclopramide 10mg/2ml Inj IVP PRN (09:00)
[2019-02-07] MEDS: POLYMYXIN B SULFATE IV SCH ×2 (09:09→20:52)
[2019-02-07] MEDS: D5W IV SCH ×2 (09:09→20:52)
[2019-02-07] MEDS: D5NS 1,000 ML IV SCH ×2 (09:09→23:47)
--- NOTE | 2019-02-07 09:45 | Consultation ---
DATE OF CONSULTATION: 02/06/2019 GASTROENTEROLOGY CONSULTATION CONSULTING PHYSICIAN: Celio Vaughan M.D. CHIEF COMPLAINT: I was asked to see this patient by Dr. Irvin Beltrán for evaluation of vomiting. HISTORY OF PRESENT ILLNESS: The patient is an 83-year-old woman with multiple medical problems including gastrostomy and tracheostomy who was brought to the hospital due to respiratory distress. The patient herself is unable to provide any history and most of the information is only available from the chart. The patient reportedly was brought in for respiratory congestion and increased work of breathing. In the hospital, she also was found to have several bouts of vomiting and therefore her tube feeding has been held. The patient has had no diarrhea or hematochezia. She was given lactulose for chronic constipation. She had a CT scan of the abdomen and pelvis, which did not show any obstructive pattern. She has been seen by colorectal surgery service for her sacral decubitus ulceration as well as other consultants for other ailments. PAST MEDICAL HISTORY: History of respiratory failure status post tracheostomy tube placement, history of gastroparesis, dysphagia status post gastrostomy tube placement, anemia, decubitus ulceration, hypertension, chronic vegetative state, immobility, history of gastrostomy to jejunostomy conversion in the past although she has been currently feeding with regular gastrostomy tube for many months. FAMILY HISTORY: Noncontributory. SOCIAL HISTORY: The patient is a long-term half-way resident. She requires around the clock care. The patient's daughter looks after her affairs. REVIEW OF SYSTEMS: Otherwise negative. PHYSICAL EXAMINATION: GENERAL: Debilitated, nonverbal woman, seen in her room with the nurse at bedside. HEENT: Normocephalic, atraumatic. NECK: Tracheostomy. CHEST: Revealed scattered rhonchi. CARDIOVASCULAR: Revealed regular rate. ABDOMEN: Soft and flat with gastrostomy tube in good position. EXTREMITIES: Revealed contracture deformities. LABORATORY DATA: Noted. IMAGING STUDIES: Reviewed. ASSESSMENT: This patient presents with several bouts of nausea, vomiting requiring discontinuation of her gastrostomy tube feeding. There no findings on the physical exam or radiographic evaluation to suggest the cause of the vomiting. However, the patient's feeding should be held for tonight and re-evaluate tomorrow. Typical gastroesophageal reflux or peptic ulcer disease can be treated with proton-pump inhibitor. Histamine 2 martha will be an acceptable alternative. Reglan can be given as needed at least on a short-term basis. I would also elevate head of bed to promote sensing. Once the tube feedings are restarted, then should be given slower residuals frequently. Should there be persistent motility issues, then the patient may require endoscopy and possibly even jejunostomy conversion. RECOMMENDATIONS: 1. Hold feeding overnight. 2. Observe for gastric residuals. 3. Proton pump inhibitor. 4. Elevate head of bed. 5. We will consider resuming tube feedings tomorrow slowly. Thank you for asking me to participate in the care of this patient. Celio Vaughan M.D. DR: SUKHJINDER JOB#: [id number] CC: LITA
--- NOTE | 2019-02-07 10:15 | NUR ---
NURSE NOTES: AM meds were administered. Oral care was done. Pt was cleaned and repositioned. BP meds were held due to low BP/HR. Addendum: 02/07/19 at 1748 by JOSELYN ALVARENGA RN Only Norvasc was held.
--- NOTE | 2019-02-07 10:32 | General Progress Note ---
Assessment/Plan Problem List: (1) Seizure ICD Codes: R56.9 - Unspecified convulsions SNOMED: 33955132 (2) Anemia ICD Codes: D64.9 - Anemia, unspecified SNOMED: 941500301 Qualifiers: Qualified Codes: D64.9 - Anemia, unspecified (3) Sepsis ICD Codes: A41.9 - Sepsis, unspecified organism SNOMED: 40402173, 309994092 Qualifiers: Qualified Codes: A41.9 - Sepsis, unspecified organism (4) Respiratory failure with hypoxia ICD Codes: J96.91 - Respiratory failure, unspecified with hypoxia SNOMED: 23786018368306328 Qualifiers: Qualified Codes: J96.21 - Acute and chronic respiratory failure with hypoxia (5) HCAP (healthcare-associated pneumonia) ICD Codes: J18.9 - Pneumonia, unspecified organism SNOMED: 684293430, 630149396 (6) Sacral decubitus ulcer ICD Codes: L89.159 - Pressure ulcer of sacral region, unspecified stage SNOMED: 052814474 (7) HTN (hypertension) ICD Codes: I10 - Essential (primary) hypertension SNOMED: 73641526 (8) Chronic vegetative state ICD Codes: R40.3 - Persistent vegetative state SNOMED: 54198023 (9) Chronic respiratory failure ICD Codes: J96.10 - Chronic respiratory failure, unspecified whether with hypoxia or hypercapnia SNOMED: 36119016 (10) Limited mobility ICD Codes: Z74.09 - Other reduced mobility SNOMED: 3342414 Status: stable, progressing Assessment/Plan: vent prn resp rx suctioning as needed wean per pulm retry feeds CT abd noted GI eval appreciated bowel regime reglan monitor residuals cont keppra for szs iv abx per id ivf renal us dc planning on hold Subjective ROS Limited/Unobtainable: Yes Constitutional: Reports: malaise, weakness HEENT: Reports: no symptoms Cardiovascular: Reports: no symptoms Respiratory: Reports: shortness of breath, sputum Gastrointestinal/Abdominal: Reports: difficulty swallowing Genitourinary: Reports: no symptoms Neurologic/Psychiatric: Reports: pre-existing deficit, seizure Endocrine: Reports: no symptoms Hematologic/Lymphatic: Reports: anemia Allergies: Coded Allergies: CODEINE (Verified Allergy, Unknown, HIVES, 09/15/09) All Systems: reviewed and negative except above Subjective no events. no vomiting. on ivf. feeds on hold. ct negative for obstruction. renal fxn worse. Objective Last 24 Hour Vital Signs Date Time Temp Pulse Resp B/P (MAP) Pulse Ox O2 Delivery O2 Flow Rate FiO2 02/07/19 08:33 90 108/62 02/07/19 07:04 90 14 30 02/07/19 07:03 99 Mechanical Ventilator 30 02/07/19 05:29 95 15 30 02/07/19 04:00 Mechanical Ventilator 02/07/19 04:00 35 02/07/19 04:00 98.1 102 22 108/62 (77) 98 02/07/19 03:58 99 02/07/19 03:20 103 20 30 02/07/19 02:28 111 112/59 02/07/19 01:37 100 Mechanical Ventilator 30 02/07/19 01:36 114 25 30 02/07/19 00:43 100.0 02/07/19 00:00 120 02/07/19 00:00 100.5 120 20 129/65 (86) 99 02/07/19 00:00 Mechanical Ventilator 02/06/19 23:08 122 16 30 02/06/19 21:23 123 20 30 02/06/19 20:00 35 02/06/19 20:00 Mechanical Ventilator 02/06/19 20:00 100.2 126 21 111/58 (75) 99 02/06/19 20:00 124 02/06/19 19:35 125 23 30 02/06/19 19:34 98 Mechanical Ventilator 30 02/06/19 17:20 121 15 30 02/06/19 16:00 113 02/06/19 16:00 99.0 116 14 145/70 (95) 100 02/06/19 16:00 35 02/06/19 16:00 Mechanical Ventilator 02/06/19 14:55 107 14 100 Mechanical Ventilator 30 111 15 30 02/06/19 13:29 100 Mechanical Ventilator 30 02/06/19 13:25 102 17 30 02/06/19 12:00 110 02/06/19 12:00 99.3 111 24 119/66 (83) 100 02/06/19 12:00 35 02/06/19 12:00 Mechanical Ventilator 02/06/19 11:10 103 14 100 Mechanical Ventilator 30 105 14 30 Intake and Output 02/06/19 02/07/19 18:59 06:59 Intake Total 1607.500 ml 768.750 ml Balance 1607.500 ml 768.750 ml IV Total 1037.500 ml 768.750 ml Other 570 ml # Bowel Movements 4 4 Laboratory Tests 02/07/19 03:45: Sodium Level 130L, Potassium Level 4.0, Chloride Level 95L, Carbon Dioxide Level 21, Anion Gap 14, Blood Urea Nitrogen 19H, Creatinine 1.8H, Estimat Glomerular Filtration Rate , Glucose Level 107H, Calcium Level 8.6, Total Bilirubin 0.4, Aspartate Amino Transf (AST/SGOT) 44H, Alanine Aminotransferase ( ALT/SGPT) 55, Alkaline Phosphatase 215H, Total Protein 7.4, Albumin 2.0L, Globulin 5.4, Albumin/Globulin Ratio 0.4L Height (Feet): 5 Height (Inches): 5.00 Weight (Pounds): 180 Objective General Appearance: WD/WN, confused Neck: supple Cardiovascular: normal rate, regular rhythm Respiratory/Chest: chest wall non-tender, rhonchi - bilaterally Abdomen: normal bowel sounds, non tender, soft, no organomegaly Edema: no edema noted Arm (L), no edema noted Arm (R), no edema noted Leg (L), no edema noted Leg (R), no edema noted Pedal (L), no edema noted Pedal (R), no edema noted Generalized Neurologic: disoriented, unresponsive, aphasia Irvin Beltrán MD Feb 07, 2019 10:32
--- NOTE | 2019-02-07 11:46 | Pulmonology Progress Note ---
Assessment/Plan Assessment/Plan Impression: Sepsis syndrome Pneumonia VDRF, Trach, G tube, Hypertension, Cardiac disease, Dementia, Previous CVA, Seizure disorder, Respiratory failure with hypoxia Anemia Sacral ulcer renal cyst Plan cultures reviewed mucomyst and duoneb SNF meds as is off vent as able; monitor for distress and PRN vent for now- still difficulty to keep off neb therapy and suction Oxygen as needed Monitor labs CT abdomen PUD and DVT prophylaxis Patient is a DNR. No CPR. dc on hold pending final clearance will discuss with all other MDs impression, plan, and exam edited and reviewed in detail care discussed with RN Subjective ROS Limited/Unobtainable: Yes Allergies: Coded Allergies: CODEINE (Verified Allergy, Unknown, HIVES, 09/15/09) Subjective on mucomyst noted congestion and tachypnea supportive care noted orders in place RT care reviewed Objective Last 24 Hour Vital Signs Date Time Temp Pulse Resp B/P (MAP) Pulse Ox O2 Delivery O2 Flow Rate FiO2 02/07/19 11:05 82 14 30 02/07/19 09:05 90 22 30 02/07/19 08:33 90 108/62 02/07/19 08:00 90 02/07/19 07:04 90 14 30 02/07/19 07:03 99 Mechanical Ventilator 30 02/07/19 05:29 95 15 30 02/07/19 04:00 Mechanical Ventilator 02/07/19 04:00 35 02/07/19 04:00 98.1 102 22 108/62 (77) 98 02/07/19 03:58 99 02/07/19 03:20 103 20 30 02/07/19 02:28 111 112/59 02/07/19 01:37 100 Mechanical Ventilator 30 02/07/19 01:36 114 25 30 02/07/19 00:43 100.0 02/07/19 00:00 120 02/07/19 00:00 100.5 120 20 129/65 (86) 99 02/07/19 00:00 Mechanical Ventilator 02/06/19 23:08 122 16 30 02/06/19 21:23 123 20 30 02/06/19 20:00 35 02/06/19 20:00 Mechanical Ventilator 02/06/19 20:00 100.2 126 21 111/58 (75) 99 02/06/19 20:00 124 02/06/19 19:35 125 23 30 02/06/19 19:34 98 Mechanical Ventilator 30 02/06/19 17:20 121 15 30 02/06/19 16:00 113 02/06/19 16:00 99.0 116 14 145/70 (95) 100 02/06/19 16:00 35 02/06/19 16:00 Mechanical Ventilator 02/06/19 14:55 107 14 100 Mechanical Ventilator 30 111 15 30 02/06/19 13:29 100 Mechanical Ventilator 30 02/06/19 13:25 102 17 30 02/06/19 12:00 110 02/06/19 12:00 99.3 111 24 119/66 (83) 100 02/06/19 12:00 35 02/06/19 12:00 Mechanical Ventilator Intake and Output 02/06/19 02/07/19 19:00 07:00 Intake Total 1607.500 ml 768.750 ml Balance 1607.500 ml 768.750 ml IV Total 1037.500 ml 768.750 ml Other 570 ml # Bowel Movements 4 4 Objective WDWN NAD contracted on vent reduced breath sounds bilaterally with scattered rhonchi same [id number] without MRG NABS nontender no HSM no CC minimal nonfocal nonverbal trach and gt reviewed and edited Laboratory Tests 02/07/19 03:45: Sodium Level 130L, Potassium Level 4.0, Chloride Level 95L, Carbon Dioxide Level 21, Anion Gap 14, Blood Urea Nitrogen 19H, Creatinine 1.8H, Estimat Glomerular Filtration Rate , Glucose Level 107H, Calcium Level 8.6, Total Bilirubin 0.4, Aspartate Amino Transf (AST/SGOT) 44H, Alanine Aminotransferase ( ALT/SGPT) 55, Alkaline Phosphatase 215H, Total Protein 7.4, Albumin 2.0L, Globulin 5.4, Albumin/Globulin Ratio 0.4L Current Medications Medications (Trade) Dose Ordered Sig/Maicol Route PRN Reason Start Time Stop Time Status Last Admin Dose Admin Acetaminophen (Tylenol) 650 mg Q4H PRN GT Mild Pain/Temp > 100.5 02/03/19 19:30 03/05/19 19:29 02/07/19 00:13 Acetylcysteine (Mucomyst) 100 mg Q4HRT HHN 02/01/19 15:00 03/03/19 12:59 02/06/19 14:54 Amlodipine Besylate (Norvasc) 5 mg DAILY GT 02/07/19 09:00 03/09/19 08:59 Ascorbic Acid (Vitamin C) 250 mg DAILY ORAL 01/25/19 09:00 02/24/19 08:59 02/07/19 08:33 Barium Sulfate (Readi-Cat 2) 450 ml NOW PRN ORAL Radiology Procedure 02/06/19 07:45 02/08/19 07:40 Bisacodyl (Dulcolax) 10 mg PRN PRN RECTAL Constipation 01/24/19 05:30 02/23/19 05:29 Dextrose/Sodium Chloride 1,000 ml @ 75 mls/hr [id number] IV 02/06/19 07:45 03/08/19 07:44 02/07/19 09:09 Docusate Sodium (Colace) 100 mg DAILY PRN GT Constipation 01/24/19 05:45 02/23/19 05:29 Famotidine (Pepcid) 20 mg DAILY GT 01/24/19 09:00 02/23/19 08:59 02/07/19 08:33 Folic Acid (Folate) 1 mg DAILY GT 01/24/19 09:00 02/23/19 08:59 02/07/19 08:33 Heparin Sodium (Porcine) (Heparin 5000 units/ml) 5,000 units EVERY 12 HOURS SUBQ 01/24/19 09:00 02/23/19 08:59 02/07/19 08:34 Levetiracetam (Keppra) 750 mg Q12HR GT 01/28/19 21:00 02/23/19 08:59 02/07/19 08:32 Metoclopramide HCl (Reglan) 10 mg Q6H PRN IVP Nausea & Vomiting 02/07/19 09:00 03/09/19 08:59 Metoprolol Tartrate (Lopressor) 25 mg Q12HR GT 02/07/19 01:45 03/09/19 01:44 02/07/19 08:33 Ondansetron HCl (Zofran) 4 mg Q6H PRN GT Nausea & Vomiting 01/24/19 05:30 02/23/19 05:29 02/06/19 10:30 Pantoprazole (Protonix) 40 mg DAILY IVP 02/04/19 09:00 03/06/19 08:59 02/07/19 08:32 Polymyxin B Sulfate 1724402 units/Dextrose 550 ml @ 366.667 mls/hr EVERY 12 HOURS IV 02/01/19 17:00 02/08/19 16:59 02/07/19 09:09 Amaury Chan MD Feb 07, 2019 11:46
[2019-02-07 12:00] VITALS: BP 90/44
--- NOTE | 2019-02-07 12:21 | Diagnostic Imaging Report ---
EXAM: US Retroperitoneal Complete, Renal CLINICAL HISTORY: RENAL-A TECHNIQUE: Real-time complete ultrasound of the retroperitoneum with image documentation. COMPARISON: CT abdomen and pelvis 02 06 19, abdominal ultrasound 12 15 18 FINDINGS: Right kidney: Right kidney measures 9.9 x 4.8 x 4.8 cm. Slightly echogenic renal cortex. 1.2 x 0.98 x 1.07 cm anechoic right renal cyst. No stones. No hydronephrosis. Left kidney: Left kidney measures 11.1 x 6 x 5.6 cm. Slightly echogenic renal cortex. 3.39 x 3.27 x 3.84 cm anechoic left renal cyst. No stones. No hydronephrosis. Bladder: Unremarkable as visualized. IMPRESSION: 1. No hydronephrosis. Slightly echogenic bilateral renal cortex may be medical renal disease. 2. 1.2 x 0.98 x 1.07 cm anechoic right renal cyst. 3. 3.39 x 3.27 x 3.84 cm anechoic left renal cyst.
--- NOTE | 2019-02-07 12:30 | NUR ---
NURSE NOTES: Renal ultrasound was done at bedside. Sputum specimen was collected and sent to lab for culture. Pt was seen by Dr Guzman. Per MD, continue to hold feeding for now due to episode of vomiting from previous shift. MD aware of today's residual at 60ml. Colace and Lactulose were DC'd.
--- NOTE | 2019-02-07 14:00 | NUR ---
NURSE NOTES: VS remain stable. Pt has no sign/symptoms of distress. Pt was repositioned. Oral care was done.
--- NOTE | 2019-02-07 14:37 | Surgery Progress Note ---
Surgery Progress Note Subjective Additional Comments no acute events Objective Last 24 Hour Vital Signs Date Time Temp Pulse Resp B/P (MAP) Pulse Ox O2 Delivery O2 Flow Rate FiO2 02/07/19 12:00 99.3 81 14 90/44 (59) 99 02/07/19 12:00 30 02/07/19 12:00 Mechanical Ventilator 02/07/19 12:00 81 02/07/19 11:05 82 14 30 02/07/19 09:05 90 22 30 02/07/19 08:33 90 108/62 02/07/19 08:00 30 02/07/19 08:00 99.5 88 22 103/49 (67) 100 02/07/19 08:00 90 02/07/19 08:00 Mechanical Ventilator 02/07/19 07:04 90 14 30 02/07/19 07:03 99 Mechanical Ventilator 30 02/07/19 05:29 95 15 30 02/07/19 04:00 Mechanical Ventilator 02/07/19 04:00 35 02/07/19 04:00 98.1 102 22 108/62 (77) 98 02/07/19 03:58 99 02/07/19 03:20 103 20 30 02/07/19 02:28 111 112/59 02/07/19 01:37 100 Mechanical Ventilator 30 02/07/19 01:36 114 25 30 02/07/19 00:43 100.0 02/07/19 00:00 120 02/07/19 00:00 100.5 120 20 129/65 (86) 99 02/07/19 00:00 Mechanical Ventilator 02/06/19 23:08 122 16 30 02/06/19 21:23 123 20 30 02/06/19 20:00 35 02/06/19 20:00 Mechanical Ventilator 02/06/19 20:00 100.2 126 21 111/58 (75) 99 02/06/19 20:00 124 02/06/19 19:35 125 23 30 02/06/19 19:34 98 Mechanical Ventilator 30 02/06/19 17:20 121 15 30 02/06/19 16:00 113 02/06/19 16:00 99.0 116 14 145/70 (95) 100 02/06/19 16:00 35 02/06/19 16:00 Mechanical Ventilator 02/06/19 14:55 107 14 100 Mechanical Ventilator 30 111 15 30 I&O Intake and Output 02/06/19 02/07/19 18:59 06:59 Intake Total 1607.500 ml 768.750 ml Balance 1607.500 ml 768.750 ml IV Total 1037.500 ml 768.750 ml Other 570 ml # Bowel Movements 4 4 Dressing: other Wound: other Drains: other Cardiovascular: RSR Respiratory: decreased breath sounds Abdomen: soft, present bowel sounds, non-distended Extremities: no cyanosis Laboratory Tests Test 02/07/19 03:45 Sodium Level 130 MMOL/L (136-145) L Potassium Level 4.0 MMOL/L (3.5-5.1) Chloride Level 95 MMOL/L (98-107) L Carbon Dioxide Level 21 MMOL/L (21-32) Anion Gap 14 mmol/L (5-15) Blood Urea Nitrogen 19 mg/dL (7-18) H Creatinine 1.8 MG/DL (0.55-1.30) H Estimat Glomerular Filtration Rate mL/min (>60) Glucose Level 107 MG/DL (74-106) H Calcium Level 8.6 MG/DL (8.5-10.1) Total Bilirubin 0.4 MG/DL (0.2-1.0) Aspartate Amino Transf (AST/SGOT) 44 U/L (15-37) H Alanine Aminotransferase (ALT/SGPT) 55 U/L (12-78) Alkaline Phosphatase 215 U/L (46-116) H Total Protein 7.4 G/DL (6.4-8.2) Albumin 2.0 G/DL (3.4-5.0) L Globulin 5.4 g/dL Albumin/Globulin Ratio 0.4 (1.0-2.7) L Plan Problems: (1) Sacral decubitus ulcer Assessment & Plan: This is a 83-year-old female with multiple medical committees that is currently admitted for medical care and management and identified to have multiple wounds requiring care. On admission patient noted to have a resolved sacral decubitus ulcer. Has had prior care and is well-healed at this time. Will ensure it does not open up again. Patient has a right ischial decubitus ulcer that is resolved. Scar intact and well formed. Will monitor to ensure it does not open up again. Patient has a left ischial decubitus ulcer that can be identified to be stage IV with palpable bone that has been resolving as noted by the periwound tissue and scar but open area approximately 1 cm x 1.5 cm few millimeters deep to bone identified. Unsure if this is been to be completely healed prior and has since opened or if has been healing at this level. No foul odor no drainage was unsure local wound care until healed Bilateral heels soft without signs of injury Resolving pressure injury L ischium(L)1.8cm x (W)1cm.Scattered biofilm at base of wound. Edges flat and adherent with surrounding hyperpigmentation. No odor or exudate noted. Sacrum is pale pink with surrounding hyperpigmentation. Hyperpigmentation R ischium with small sheared area centrally.No areas of erythema or exudate noted. Both heels are soft but blanchable. Skin Assessed under collar of trach and no evidence of skin breakdown noted. All wound Tx. are effective and continued as ordered. Pt ahs an APM/Belén mattress overlay and is being repositioned per protocols and per tolerance.No new skin concerns noted. Treatment plan: Please apply skin protectant and optifoam to sacral area. Change every 3 days Please apply skin protectant and optifoam to right ischial area. Change every 3 days Please apply Thera honey infused gauze to small opening in the left ischial wound bed followed by skin protectant in the periwound and up to foam. Change daily as needed saturation Offload pressure from heels with pillow Air soft mattress Turn every 2 hours Nutritional optimization We will monitor follow with recommendations (2) Sepsis Assessment & Plan: IV abx as per ID trend labs wounds unlikely etiology likely respiratory improving labs noted DAILY ESTIMATED NEEDS: Needs based on Critical care, wounds/ 60kg adj 22-28 kcals/kg 8914-0709 total kcals 1.25-2 g protein/kg 75-120 g total protein 25-30 mL/kg 9725-1298 total fluid mLs NUTRITION DIAGNOSIS: * Swallowing difficulty R/T respiratory status as evidenced by trach/vent dep, PEG dep. * Increased kcal/prot needs R/T wound healing as evidenced by BL buttocks and sacral wound photos, pending evaluation. CURRENT TF:Glucerna 1.5 @ 30ml/hr x 24 hrs ENTERAL NUTRITION RECOMMENDATIONS: Jevity 1.2 @ 55ml/hr x 24 hrs + Prosource 1pkt QD to provide 1320ml, 1584kcal, 73g +11g prot, 1060ml free water - Rec to continue PLASTIC TOOL MAKER TF of Jevity 1.2 - Rec Jevity 1.2 @ goal rate of 55ml/hr x 24 hrs - Add Prosource 1pkt daily to meet protein needs - Flush per MD/ HOB over 30 degrees ADDITIONAL RECOMMENDATIONS: 1) Re-calibrated bedscale wt for accurate CBW 2) Wound healing: Add Vit C 250mg QD + Cristian 1pkt BID : f/up w/ WC eval 3) Monitor lytes, replete as needed (3) Feeding by G-tube Assessment & Plan: cont tube feeds as tolerated (4) Chronic vegetative state Assessment & Plan: incontinence of urine and stool. can soil dressings. nurses doing great job with monitoring and changing prn (5) Leukocytosis Walter Madera Feb 07, 2019 14:36
[2019-02-07] MEDS: Albuterol/Ipratropium 3ml neb HHN PRN ×3 (15:26→23:27)
[2019-02-07 16:00] VITALS: BP 125/61
[2019-02-07] MEDS ORDERED: HydrALAZINE 25mg tab GT PRN (16:30)
--- NOTE | 2019-02-07 18:15 | NUR ---
NURSE NOTES: Pt was cleaned, wound photos were taken and uploaded, dressings were changed, gown/bed linens were changed. Oral care was done, and pt suctioned. Pt was repositioned with bilateral extremities elevated on pillows. VS remain stable with no signs/symptoms of any distress.
--- NOTE | 2019-02-07 19:12 | NUR ---
HAND-OFF: Report given to Marcelo RN. VS stable. Endorsed plan of care.
--- NOTE | 2019-02-07 19:13 | NUR ---
NURSE NOTES: Received patient from Jennifer PAEZ. Patient is obtunded, receiving oxygen via trach to vent: Shiley 6, AC 14, TV 450, FiO2 35%, PEEP 5. G-tube is patent, patient is currently NPO. IV site is right hand 24g receiving D5NS at 75cc/hr. Bed is locked, placed in lowest position, side rails up x3, bed alarm on, head of bed elevated, call light within reach. Will continue to monitor.
[2019-02-07 20:00] VITALS: BP 132/64
--- NOTE | 2019-02-07 22:30 | Progress Note ---
DATE: 02/07/2019 CARDIOLOGY PROGRESS NOTE SUBJECTIVE: The patient remains on ventilator support. Periodically on trach collar. Continues to have tenuous blood pressure parameters at times in sinus rhythm with sinus tachycardia. OBJECTIVE: VITAL SIGNS: Blood pressure 90/44, heart rate 81, respiratory rate 14, and temperature 99.3. HEENT: Thick secretions. CARDIAC: Regular rhythm and rate. Normal S1 and S2. LUNGS: Rhonchi bilaterally. ABDOMEN: G-tube intact. EXTREMITIES: Trace dependent edema. DIAGNOSTIC DATA: Chest x-ray yesterday revealed interstitial edema and bilateral infiltrates. Renal ultrasound revealed no hydronephrosis. IMPRESSION: 1. Sepsis. 2. Healthcare-acquired pneumonia. 3. Healthcare-acquired urinary tract infection. 4. Tenuous cardiovascular parameters. 5. Shock due to sepsis. 6. Acute on chronic renal failure. 7. Anemia, multifactorial. PLAN: 1. Antimicrobials. 2. Ventilator support. 3. Discontinue antihypertensives in view of decreasing blood pressure parameters. 4. No plan for diuresis at this time. 5. Cautious hydration with saline. 6. Prognosis remains poor. 7. Condition remains serious. Kathy Christiansen JOB#: [id number] CC:
[2019-02-08] VITALS: BP 119/61
[2019-02-08] MEDS: Albuterol/Ipratropium 3ml neb HHN PRN ×6 (03:19→23:16)
[2019-02-08 04:00] VITALS: BP 112/77
[2019-02-08 06:22] LABS: ALANINE AMINOTRANSFERASE 49 U/L (12-78); ALBUMIN 2.1 G/DL (3.4-5.0); ALBUMIN/GLOBULIN RATIO 0.4 (1.0-2.7); ALKALINE PHOSPHATASE 202 U/L (46-116); ANION GAP 13 mmol/L (5-15); ASPARTATE AMINO TRANSFERASE 37 U/L (15-37); BILIRUBIN,TOTAL 0.3 MG/DL (0.2-1.0); BLOOD UREA NITROGEN 15 mg/dL (7-18); CARBON DIOXIDE 22 MMOL/L (21-32); CHLORIDE 101 MMOL/L (98-107); CREATININE 1.8 MG/DL (0.55-1.30); POTASSIUM 3.7 MMOL/L (3.5-5.1); SODIUM 136 MMOL/L (136-145)
--- NOTE | 2019-02-08 07:00 | NUR ---
NURSE NOTES: Dr. Guzman saw patient.
--- NOTE | 2019-02-08 07:10 | General Progress Note ---
Assessment/Plan Status: stable, progressing Assessment/Plan: Assessment/Plan Status: stable, progressing Assessment/Plan: Assessment - N/V overnight, ? etiology, CT negative for obstruction - Anemia with OB (-) stools - Resp failure, s/p Trach - dysphagia, s/p PWG - OBS Recommendations - hold feeds - laxative - retry TF in am, slowly - PPI - Elevate HOB -dc all laxatives -on reglan Subjective ROS Limited/Unobtainable: No Allergies: Coded Allergies: CODEINE (Verified Allergy, Unknown, HIVES, 09/15/09) Objective Last 24 Hour Vital Signs Date Time Temp Pulse Resp B/P (MAP) Pulse Ox O2 Delivery O2 Flow Rate FiO2 02/08/19 06:52 88 14 100 Mechanical Ventilator 45.0 30 84 14 100 02/08/19 06:44 92 16 30 02/08/19 06:43 100 Mechanical Ventilator 30 02/08/19 04:49 98 15 30 02/08/19 04:00 30 02/08/19 04:00 Mechanical Ventilator 02/08/19 04:00 97.9 97 19 112/77 (89) 100 02/08/19 03:52 95 02/08/19 03:15 92 16 100 Mechanical Ventilator 30 94 15 30 02/08/19 01:30 99 16 30 02/08/19 00:00 85 02/08/19 00:00 Mechanical Ventilator 02/08/19 00:00 98.2 83 14 119/61 (80) 100 02/07/19 23:28 85 15 100 Mechanical Ventilator 30 85 15 30 02/07/19 23:27 102 18 100 Mechanical Ventilator 30 02/07/19 21:25 91 15 30 02/07/19 20:53 93 122/58 02/07/19 20:00 30 02/07/19 20:00 Mechanical Ventilator 02/07/19 20:00 98.8 89 15 132/64 (86) 100 02/07/19 19:23 87 15 100 Mechanical Ventilator 30 89 15 30 02/07/19 19:22 100 Mechanical Ventilator 30 02/07/19 19:16 86 02/07/19 17:30 85 14 30 02/07/19 17:29 83 02/07/19 16:00 30 02/07/19 16:00 Mechanical Ventilator 02/07/19 16:00 99.0 89 16 125/61 (82) 100 02/07/19 15:26 89 19 100 Mechanical Ventilator 30 84 15 30 02/07/19 13:20 100 Mechanical Ventilator 30 02/07/19 13:20 84 15 30 02/07/19 12:00 99.3 81 14 90/44 (59) 99 02/07/19 12:00 30 02/07/19 12:00 Mechanical Ventilator 02/07/19 12:00 81 02/07/19 11:05 82 14 30 02/07/19 09:05 90 22 30 02/07/19 08:33 90 108/62 02/07/19 08:00 30 02/07/19 08:00 99.5 88 22 103/49 (67) 100 02/07/19 08:00 90 02/07/19 08:00 Mechanical Ventilator Intake and Output 02/07/19 02/08/19 19:00 07:00 Intake Total 1693.334 ml 100 ml Output Total 500 ml Balance 1193.334 ml 100 ml IV Total 1633.334 ml Other 60 ml 100 ml Output Urine Total 500 ml # Bowel Movements 1 1 Laboratory Tests 02/08/19 03:28: Sodium Level 136, Potassium Level 3.7, Chloride Level 101, Carbon Dioxide Level 22, Anion Gap 13, Blood Urea Nitrogen 15, Creatinine 1.8H, Estimat Glomerular Filtration Rate , Glucose Level 67L, Calcium Level 9.0, Total Bilirubin 0.3, Aspartate Amino Transf (AST/SGOT) 37, Alanine Aminotransferase (ALT/SGPT) 49, Alkaline Phosphatase 202H, Total Protein 7.8, Albumin 2.1L, Globulin 5.7, Albumin/Globulin Ratio 0.4L Height (Feet): 5 Height (Inches): 5.00 Weight (Pounds): 180 General Appearance: lethargic EENT: normal ENT inspection Neck: supple Cardiovascular: tachycardia Respiratory/Chest: decreased breath sounds Abdomen: normal bowel sounds, non tender, soft Extremities: non-tender Gary Guzman MD Feb 08, 2019 07:10
--- NOTE | 2019-02-08 07:14 | NUR ---
HAND-OFF: Report given to Gage PAEZ.
--- NOTE | 2019-02-08 07:30 | NUR ---
NURSE NOTES: Received report form JEANNINE Baig. Patient is resting in bed, in stable condition. No s/sx of SOB, breathing is even and unlabored, vent settings are as ordered. Observed no presence of pain or discomfort at this time. Bed is in lowest position, brakes engaged. Call light is kept within easy reach. Will continue to monitor patient.
[2019-02-08 08:00] VITALS: BP 135/64
[2019-02-08] MEDS: Pantoprazole Inj IVP SCH ×2 (08:48→20:10)
[2019-02-08] MEDS: D5W IV SCH (08:48)
[2019-02-08] MEDS: Ascorbic Acid 500mg tab ORAL SCH (08:48)
[2019-02-08] MEDS: POLYMYXIN B SULFATE IV SCH (08:48)
[2019-02-08] MEDS: levETIRAcetam 500mg/5ml Liquid GT SCH ×2 (08:48→20:09)
[2019-02-08] MEDS: Heparin 5000 units/ml inj SUBQ SCH ×2 (08:51→20:12)
--- NOTE | 2019-02-08 09:22 | General Progress Note ---
Assessment/Plan Problem List: (1) Seizure ICD Codes: R56.9 - Unspecified convulsions SNOMED: 38527534 (2) Anemia ICD Codes: D64.9 - Anemia, unspecified SNOMED: 640570801 Qualifiers: Qualified Codes: D64.9 - Anemia, unspecified (3) Sepsis ICD Codes: A41.9 - Sepsis, unspecified organism SNOMED: 98837871, 377811649 Qualifiers: Qualified Codes: A41.9 - Sepsis, unspecified organism (4) Respiratory failure with hypoxia ICD Codes: J96.91 - Respiratory failure, unspecified with hypoxia SNOMED: 93858876276077636 Qualifiers: Qualified Codes: J96.21 - Acute and chronic respiratory failure with hypoxia (5) HCAP (healthcare-associated pneumonia) ICD Codes: J18.9 - Pneumonia, unspecified organism SNOMED: 161207254, 242301153 (6) Sacral decubitus ulcer ICD Codes: L89.159 - Pressure ulcer of sacral region, unspecified stage SNOMED: 550471713 (7) HTN (hypertension) ICD Codes: I10 - Essential (primary) hypertension SNOMED: 14072401 (8) Chronic vegetative state ICD Codes: R40.3 - Persistent vegetative state SNOMED: 84973319 (9) Chronic respiratory failure ICD Codes: J96.10 - Chronic respiratory failure, unspecified whether with hypoxia or hypercapnia SNOMED: 17266606 (10) Limited mobility ICD Codes: Z74.09 - Other reduced mobility SNOMED: 6990385 Status: stable, progressing Assessment/Plan: vent prn resp rx suctioning as needed wean per pulm retry feeds GI eval appreciated bowel regime reglan monitor residuals cont keppra for szs iv abx per id ivf renal eval dc planning on hold Subjective ROS Limited/Unobtainable: Yes Constitutional: Reports: malaise, weakness HEENT: Reports: no symptoms Cardiovascular: Reports: no symptoms Respiratory: Reports: cough, shortness of breath, sputum Gastrointestinal/Abdominal: Reports: difficulty swallowing Genitourinary: Reports: no symptoms Neurologic/Psychiatric: Reports: pre-existing deficit, seizure Endocrine: Reports: no symptoms Hematologic/Lymphatic: Reports: anemia Allergies: Coded Allergies: CODEINE (Verified Allergy, Unknown, HIVES, 09/15/09) All Systems: reviewed and negative except above Subjective no events. no vomiting. on ivf. feeds on hold. ct negative for obstruction. renal fxn worse. renal us with no hydro. multiple positive cultures. Objective Last 24 Hour Vital Signs Date Time Temp Pulse Resp B/P (MAP) Pulse Ox O2 Delivery O2 Flow Rate FiO2 02/08/19 08:48 79 135/64 02/08/19 08:39 79 14 30 02/08/19 08:00 Mechanical Ventilator 02/08/19 08:00 98.1 88 19 135/64 (87) 100 02/08/19 08:00 30 02/08/19 06:52 88 14 100 Mechanical Ventilator 45.0 30 84 14 100 02/08/19 06:44 92 16 30 02/08/19 06:43 100 Mechanical Ventilator 30 02/08/19 04:49 98 15 30 02/08/19 04:00 30 02/08/19 04:00 Mechanical Ventilator 02/08/19 04:00 97.9 97 19 112/77 (89) 100 02/08/19 03:52 95 02/08/19 03:15 92 16 100 Mechanical Ventilator 30 94 15 30 02/08/19 01:30 99 16 30 02/08/19 00:00 85 02/08/19 00:00 Mechanical Ventilator 02/08/19 00:00 98.2 83 14 119/61 (80) 100 02/07/19 23:28 85 15 100 Mechanical Ventilator 30 85 15 30 02/07/19 23:27 102 18 100 Mechanical Ventilator 30 02/07/19 21:25 91 15 30 02/07/19 20:53 93 122/58 02/07/19 20:00 30 02/07/19 20:00 Mechanical Ventilator 02/07/19 20:00 98.8 89 15 132/64 (86) 100 02/07/19 19:23 87 15 100 Mechanical Ventilator 30 89 15 30 02/07/19 19:22 100 Mechanical Ventilator 30 02/07/19 19:16 86 02/07/19 17:30 85 14 30 02/07/19 17:29 83 02/07/19 16:00 30 02/07/19 16:00 Mechanical Ventilator 02/07/19 16:00 99.0 89 16 125/61 (82) 100 02/07/19 15:26 89 19 100 Mechanical Ventilator 30 84 15 30 11/9/19 13:20 100 Mechanical Ventilator 30 02/07/19 13:20 84 15 30 02/07/19 12:00 99.3 81 14 90/44 (59) 99 02/07/19 12:00 30 02/07/19 12:00 Mechanical Ventilator 02/07/19 12:00 81 02/07/19 11:05 82 14 30 Intake and Output 02/07/19 02/08/19 19:00 07:00 Intake Total 1693.334 ml 625 ml Output Total 500 ml Balance 1193.334 ml 625 ml IV Total 1633.334 ml 525 ml Other 60 ml 100 ml Output Urine Total 500 ml # Bowel Movements 1 1 Laboratory Tests 02/08/19 03:28: Sodium Level 136, Potassium Level 3.7, Chloride Level 101, Carbon Dioxide Level 22, Anion Gap 13, Blood Urea Nitrogen 15, Creatinine 1.8H, Estimat Glomerular Filtration Rate , Glucose Level 67L, Calcium Level 9.0, Total Bilirubin 0.3, Aspartate Amino Transf (AST/SGOT) 37, Alanine Aminotransferase (ALT/SGPT) 49, Alkaline Phosphatase 202H, Total Protein 7.8, Albumin 2.1L, Globulin 5.7, Albumin/Globulin Ratio 0.4L Height (Feet): 5 Height (Inches): 5.00 Weight (Pounds): 180 Objective General Appearance: WD/WN, confused Neck: supple Cardiovascular: normal rate, regular rhythm Respiratory/Chest: chest wall non-tender, rhonchi - bilaterally Abdomen: normal bowel sounds, non tender, soft, no organomegaly Edema: no edema noted Arm (L), no edema noted Arm (R), no edema noted Leg (L), no edema noted Leg (R), no edema noted Pedal (L), no edema noted Pedal (R), no edema noted Generalized Neurologic: disoriented, unresponsive, aphasia Irvin Beltrán MD Feb 08, 2019 09:22
[2019-02-08 10:32] LABS: ANION GAP 6 mmol/L (5-15); BLOOD UREA NITROGEN 14 mg/dL (7-18); CALCIUM 8.3 MG/DL (8.5-10.1); CARBON DIOXIDE 27 MMOL/L (21-32); CHLORIDE 100 MMOL/L (98-107); CREATININE 1.8 MG/DL (0.55-1.30); SODIUM 133 MMOL/L (136-145)
--- NOTE | 2019-02-08 10:38 | NUR ---
NURSE NOTES: Bladder scan performed per Dr. Cortez instructions x 3. All scans revealed 0 ml in bladder. Charge nurse also performed scan with this nurse at bedside. No distention of bladder noted, no pain upon palpation, patient is noted on purwick external catheter and noted voiding yellow clear urine. Noted. Will continue to monitor patient.
[2019-02-08 10:49] LABS: CHOLESTEROL 155 MG/DL (< 200); FERRITIN 834 NG/ML (8-388); HDL CHOLESTEROL 21 MG/DL (40-60); PHOSPHORUS 4.2 MG/DL (2.5-4.9); TRIGLYCERIDES 157 MG/DL (30-150)
--- NOTE | 2019-02-08 10:50 | Infectious Diseases Prog Note ---
Assessment/Plan Assessment/Plan A 1. Acinetobacter, pseudomonas & Klebsiella pneumonia 2. respiratory failure 3. hypertension 4. CVA 5. dementia 6. sacral decubitus ulcer 7. rectal VRE colonization 8. Anemia 9. KPC UTI 10. Acute renal failure P 1. continue Polymyxin B until tonight Subjective ROS Limited/Unobtainable: Yes Constitutional: Denies: fever Gastrointestinal/Abdominal: Reports: vomiting Allergies: Coded Allergies: CODEINE (Verified Allergy, Unknown, HIVES, 09/15/09) Objective Vital Signs Last 24 Hour Vital Signs Date Time Temp Pulse Resp B/P (MAP) Pulse Ox O2 Delivery O2 Flow Rate FiO2 02/08/19 09:24 84 02/08/19 08:48 79 135/64 02/08/19 08:39 79 14 30 02/08/19 08:00 Mechanical Ventilator 02/08/19 08:00 98.1 88 19 135/64 (87) 100 02/08/19 08:00 30 02/08/19 06:52 88 14 100 Mechanical Ventilator 45.0 30 84 14 100 02/08/19 06:44 92 16 30 02/08/19 06:43 100 Mechanical Ventilator 30 02/08/19 04:49 98 15 30 02/08/19 04:00 30 02/08/19 04:00 Mechanical Ventilator 02/08/19 04:00 97.9 97 19 112/77 (89) 100 02/08/19 03:52 95 02/08/19 03:15 92 16 100 Mechanical Ventilator 30 94 15 30 02/08/19 01:30 99 16 30 02/08/19 00:00 85 02/08/19 00:00 Mechanical Ventilator 02/08/19 00:00 98.2 83 14 119/61 (80) 100 02/07/19 23:28 85 15 100 Mechanical Ventilator 30 85 15 30 02/07/19 23:27 102 18 100 Mechanical Ventilator 30 02/07/19 21:25 91 15 30 02/07/19 20:53 93 122/58 02/07/19 20:00 30 02/07/19 20:00 Mechanical Ventilator 02/07/19 20:00 98.8 89 15 132/64 (86) 100 02/07/19 19:23 87 15 100 Mechanical Ventilator 30 89 15 30 02/07/19 19:22 100 Mechanical Ventilator 30 02/07/19 19:16 86 02/07/19 17:30 85 14 30 02/07/19 17:29 83 02/07/19 16:00 30 02/07/19 16:00 Mechanical Ventilator 02/07/19 16:00 99.0 89 16 125/61 (82) 100 02/07/19 15:26 89 19 100 Mechanical Ventilator 30 84 15 30 02/07/19 13:20 100 Mechanical Ventilator 30 02/07/19 13:20 84 15 30 02/07/19 12:00 99.3 81 14 90/44 (59) 99 02/07/19 12:00 30 02/07/19 12:00 Mechanical Ventilator 02/07/19 12:00 81 02/07/19 11:05 82 14 30 Height (Feet): 5 Height (Inches): 5.00 Weight (Pounds): 180 HEENT: status post trach Respiratory/Chest: lungs clear, other - on ventilator Cardiovascular: normal rate Abdomen: soft, non tender, other - GT feeding Extremities: other - left hand edema Neurologic/Psychiatric: unresponsiveness Microbiology Date/Time Source Procedure Growth Status 02/07/19 09:20 Sputum Gram Stain - Final Resulted 02/07/19 09:20 Sputum Culture - Preliminary Gram Negative Denzel Resulted Laboratory Tests Test 02/08/19 03:28 02/08/19 10:05 Sodium Level 136 MMOL/L (136-145) 133 MMOL/L (136-145) L Potassium Level 3.7 MMOL/L (3.5-5.1) 3.0 MMOL/L (3.5-5.1) L Chloride Level 101 MMOL/L (98-107) 100 MMOL/L (98-107) Carbon Dioxide Level 22 MMOL/L (21-32) 27 MMOL/L (21-32) Anion Gap 13 mmol/L (5-15) 6 mmol/L (5-15) Blood Urea Nitrogen 15 mg/dL (7-18) 14 mg/dL (7-18) Creatinine 1.8 MG/DL (0.55-1.30) H 1.8 MG/DL (0.55-1.30) H Estimat Glomerular Filtration Rate mL/min (>60) mL/min (>60) Glucose Level 67 MG/DL (74-106) L 160 MG/DL (74-106) H Calcium Level 9.0 MG/DL (8.5-10.1) 8.3 MG/DL (8.5-10.1) L Total Bilirubin 0.3 MG/DL (0.2-1.0) Aspartate Amino Transf (AST/SGOT) 37 U/L (15-37) Alanine Aminotransferase (ALT/SGPT) 49 U/L (12-78) Alkaline Phosphatase 202 U/L (46-116) H Total Protein 7.8 G/DL (6.4-8.2) Albumin 2.1 G/DL (3.4-5.0) L Globulin 5.7 g/dL Albumin/Globulin Ratio 0.4 (1.0-2.7) L Uric Acid Pending Phosphorus Level Pending Magnesium Level Pending Iron Level Pending Unsaturated Iron Binding Pending Ferritin Pending C-Reactive Protein, Quantitative Pending Triglycerides Level Pending Cholesterol Level Pending LDL Cholesterol Pending HDL Cholesterol Pending Cholesterol/HDL Ratio Pending Vitamin B12 Level Pending Folate Pending Thyroid Stimulating Hormone (TSH) Pending Current Medications Medications (Trade) Dose Ordered Sig/Maicol Route PRN Reason Start Time Stop Time Status Last Admin Dose Admin Acetaminophen (Tylenol) 650 mg Q4H PRN GT Mild Pain/Temp > 100.5 02/03/19 19:30 03/05/19 19:29 02/07/19 00:13 Acetylcysteine (Mucomyst) 100 mg Q4HRT HHN 02/01/19 15:00 03/03/19 12:59 02/08/19 06:52 Albuterol/ Ipratropium (Albuterol/ Ipratropium) 3 ml Q4H PRN HHN Shortness of Breath 02/07/19 15:00 02/12/19 14:59 02/08/19 06:52 Ascorbic Acid (Vitamin C) 250 mg DAILY ORAL 01/25/19 09:00 02/24/19 08:59 02/08/19 08:48 Bisacodyl (Dulcolax) 10 mg PRN PRN RECTAL Constipation 01/24/19 05:30 02/23/19 05:29 Dextrose/Sodium Chloride 1,000 ml @ 75 mls/hr [id number] IV 02/06/19 07:45 03/08/19 07:44 02/07/19 23:47 Docusate Sodium (Colace) 100 mg DAILY PRN GT Constipation 01/24/19 05:45 02/23/19 05:29 Famotidine (Pepcid) 20 mg DAILY GT 01/24/19 09:00 02/23/19 08:59 02/08/19 08:48 Folic Acid (Folate) 1 mg DAILY GT 01/24/19 09:00 02/23/19 08:59 02/08/19 08:48 Heparin Sodium (Porcine) (Heparin 5000 units/ml) 5,000 units EVERY 12 HOURS SUBQ 01/24/19 09:00 02/23/19 08:59 02/08/19 08:51 Hydralazine HCl (Apresoline) 25 mg Q6H PRN GT SBP above 160 02/07/19 16:30 03/09/19 16:29 Levetiracetam (Keppra) 750 mg Q12HR GT 01/28/19 21:00 02/23/19 08:59 02/08/19 08:48 Metoclopramide HCl (Reglan) 10 mg Q6H PRN IVP Nausea & Vomiting 02/07/19 09:00 03/09/19 08:59 Metoprolol Tartrate (Lopressor) 25 mg Q12HR GT 02/07/19 01:45 03/09/19 01:44 02/08/19 08:48 Ondansetron HCl (Zofran) 4 mg Q6H PRN GT Nausea & Vomiting 01/24/19 05:30 02/23/19 05:29 02/06/19 10:30 Pantoprazole (Protonix) 40 mg DAILY IVP 02/04/19 09:00 03/06/19 08:59 02/08/19 08:48 Polymyxin B Sulfate [id number] units/Dextrose 550 ml @ 366.667 mls/hr EVERY 12 HOURS IV 02/01/19 17:00 02/08/19 16:59 02/08/19 08:48 Chauncey Liriano MD Feb 08, 2019 10:50
--- NOTE | 2019-02-08 11:16 | Pulmonology Progress Note ---
Assessment/Plan Assessment/Plan Impression: Sepsis syndrome Pneumonia VDRF, Trach, G tube, Hypertension, Cardiac disease, Dementia, Previous CVA, Seizure disorder, Respiratory failure with hypoxia Anemia Sacral ulcer renal cyst Plan cultures reviewed mucomyst and duoneb SNF meds as is unable to wean back on AC Oxygen as needed Monitor labs for change renal US noted Patient is a DNR. No CPR. dc planning for subacute care impression, plan, and exam edited and reviewed in detail care discussed with RN Subjective ROS Limited/Unobtainable: Yes Allergies: Coded Allergies: CODEINE (Verified Allergy, Unknown, HIVES, 09/15/09) Subjective on mucomyst noted congestion supportive care noted orders in place RT care reviewed on vent support at present Objective Last 24 Hour Vital Signs Date Time Temp Pulse Resp B/P (MAP) Pulse Ox O2 Delivery O2 Flow Rate FiO2 02/08/19 10:47 82 16 100 Mechanical Ventilator 45.0 30 80 16 100 02/08/19 10:46 80 16 30 02/08/19 09:24 84 02/08/19 08:48 79 135/64 02/08/19 08:39 79 14 30 02/08/19 08:00 Mechanical Ventilator 02/08/19 08:00 98.1 88 19 135/64 (87) 100 02/08/19 08:00 30 02/08/19 06:52 88 14 100 Mechanical Ventilator 45.0 30 84 14 100 02/08/19 06:44 92 16 30 02/08/19 06:43 100 Mechanical Ventilator 30 02/08/19 04:49 98 15 30 02/08/19 04:00 30 02/08/19 04:00 Mechanical Ventilator 02/08/19 04:00 97.9 97 19 112/77 (89) 100 02/08/19 03:52 95 02/08/19 03:15 92 16 100 Mechanical Ventilator 30 94 15 30 02/08/19 01:30 99 16 30 02/08/19 00:00 85 02/08/19 00:00 Mechanical Ventilator 02/08/19 00:00 98.2 83 14 119/61 (80) 100 02/07/19 23:28 85 15 100 Mechanical Ventilator 30 85 15 30 02/07/19 23:27 102 18 100 Mechanical Ventilator 30 02/07/19 21:25 91 15 30 02/07/19 20:53 93 122/58 02/07/19 20:00 30 02/07/19 20:00 Mechanical Ventilator 02/07/19 20:00 98.8 89 15 132/64 (86) 100 02/07/19 19:23 87 15 100 Mechanical Ventilator 30 89 15 30 02/07/19 19:22 100 Mechanical Ventilator 30 02/07/19 19:16 86 02/07/19 17:30 85 14 30 02/07/19 17:29 83 02/07/19 16:00 30 02/07/19 16:00 Mechanical Ventilator 02/07/19 16:00 99.0 89 16 125/61 (82) 100 02/07/19 15:26 89 19 100 Mechanical Ventilator 30 84 15 30 02/07/19 13:20 100 Mechanical Ventilator 30 02/07/19 13:20 84 15 30 02/07/19 12:00 99.3 81 14 90/44 (59) 99 02/07/19 12:00 30 02/07/19 12:00 Mechanical Ventilator 02/07/19 12:00 81 Intake and Output 02/07/19 02/08/19 19:00 07:00 Intake Total 1693.334 ml 625 ml Output Total 500 ml Balance 1193.334 ml 625 ml IV Total 1633.334 ml 525 ml Other 60 ml 100 ml Output Urine Total 500 ml # Bowel Movements 1 1 Objective WDWN NAD contracted on vent reduced breath sounds bilaterally with scattered rhonchi same [id number] without MRG NABS nontender no HSM no CC minimal nonfocal nonverbal trach and gt reviewed and edited Microbiology Date/Time Source Procedure Growth Status 02/07/19 09:20 Sputum Gram Stain - Final Resulted 02/07/19 09:20 Sputum Culture - Preliminary Gram Negative Denzel Resulted Laboratory Tests 02/08/19 03:28: Sodium Level 136, Potassium Level 3.7, Chloride Level 101, Carbon Dioxide Level 22, Anion Gap 13, Blood Urea Nitrogen 15, Creatinine 1.8H, Estimat Glomerular Filtration Rate , Glucose Level 67L, Calcium Level 9.0, Total Bilirubin 0.3, Aspartate Amino Transf (AST/SGOT) 37, Alanine Aminotransferase (ALT/SGPT) 49, Alkaline Phosphatase 202H, Total Protein 7.8, Albumin 2.1L, Globulin 5.7, Albumin/Globulin Ratio 0.4L 02/08/19 10:05: Sodium Level 133L, Potassium Level 3.0L, Chloride Level 100, Carbon Dioxide Level 27, Anion Gap 6, Blood Urea Nitrogen 14, Creatinine 1.8H, Estimat Glomerular Filtration Rate , Glucose Level 160H, Calcium Level 8.3L, Uric Acid 9.3H, Phosphorus Level 4.2, Magnesium Level 1.2L, Iron Level [Pending], Unsaturated Iron Binding [Pending], Ferritin 834H, C-Reactive Protein, Quantitative > 70.0H, Triglycerides Level 157H, Cholesterol Level 155, LDL Cholesterol 91, HDL Cholesterol 21L, Cholesterol/HDL Ratio 7.4H, Vitamin B12 Level [Pending], Folate [Pending], Thyroid Stimulating Hormone (TSH) 2.680 Current Medications Medications (Trade) Dose Ordered Sig/Maicol Route PRN Reason Start Time Stop Time Status Last Admin Dose Admin Acetaminophen (Tylenol) 650 mg Q4H PRN GT Mild Pain/Temp > 100.5 02/03/19 19:30 03/05/19 19:29 02/07/19 00:13 Acetylcysteine (Mucomyst) 100 mg Q4HRT HHN 02/01/19 15:00 03/03/19 12:59 02/08/19 10:45 Albuterol/ Ipratropium (Albuterol/ Ipratropium) 3 ml Q4H PRN HHN Shortness of Breath 02/07/19 15:00 02/12/19 14:59 02/08/19 10:45 Ascorbic Acid (Vitamin C) 250 mg DAILY ORAL 01/25/19 09:00 02/24/19 08:59 02/08/19 08:48 Bisacodyl (Dulcolax) 10 mg PRN PRN RECTAL Constipation 01/24/19 05:30 02/23/19 05:29 Dextrose/Sodium Chloride 1,000 ml @ 75 mls/hr [id number] IV 02/06/19 07:45 03/08/19 07:44 02/07/19 23:47 Docusate Sodium (Colace) 100 mg DAILY PRN GT Constipation 01/24/19 05:45 02/23/19 05:29 Famotidine (Pepcid) 20 mg DAILY GT 01/24/19 09:00 02/23/19 08:59 02/08/19 08:48 Folic Acid (Folate) 1 mg DAILY GT 01/24/19 09:00 02/23/19 08:59 02/08/19 08:48 Heparin Sodium (Porcine) (Heparin 5000 units/ml) 5,000 units EVERY 12 HOURS SUBQ 01/24/19 09:00 02/23/19 08:59 02/08/19 08:51 Hydralazine HCl (Apresoline) 25 mg Q6H PRN GT SBP above 160 02/07/19 16:30 03/09/19 16:29 Levetiracetam (Keppra) 750 mg Q12HR GT 01/28/19 21:00 02/23/19 08:59 02/08/19 08:48 Metoclopramide HCl (Reglan) 10 mg Q6H PRN IVP Nausea & Vomiting 02/07/19 09:00 03/09/19 08:59 Metoprolol Tartrate (Lopressor) 25 mg Q12HR GT 02/07/19 01:45 03/09/19 01:44 02/08/19 08:48 Ondansetron HCl (Zofran) 4 mg Q6H PRN GT Nausea & Vomiting 01/24/19 05:30 02/23/19 05:29 02/06/19 10:30 Pantoprazole (Protonix) 40 mg DAILY IVP 02/04/19 09:00 03/06/19 08:59 02/08/19 08:48 Polymyxin B Sulfate [id number] units/Dextrose 550 ml @ 366.667 mls/hr EVERY 12 HOURS IV 02/01/19 17:00 02/08/19 16:59 02/08/19 08:48 Amaury Chan MD Feb 08, 2019 11:16
[2019-02-08 11:35] LABS: % IRON SATURATION 33 % (15-50); IRON 39 ug/dL (50-175); TOTAL IRON BINDING CAPACITY 119 ug/dL (250-450)
[2019-02-08 12:00] VITALS: BP 123/57
[2019-02-08] MEDS: D5NS 1,000 ML IV SCH (12:29)
--- NOTE | 2019-02-08 12:48 | Surgery Progress Note ---
Surgery Progress Note Subjective Additional Comments no acute events overall stable Objective Last 24 Hour Vital Signs Date Time Temp Pulse Resp B/P (MAP) Pulse Ox O2 Delivery O2 Flow Rate FiO2 02/08/19 12:00 30 02/08/19 12:00 Mechanical Ventilator 02/08/19 10:47 82 16 100 Mechanical Ventilator 45.0 30 80 16 100 02/08/19 10:46 80 16 30 02/08/19 09:24 84 02/08/19 08:48 79 135/64 02/08/19 08:39 79 14 30 02/08/19 08:00 Mechanical Ventilator 02/08/19 08:00 98.1 88 19 135/64 (87) 100 02/08/19 08:00 30 02/08/19 06:52 88 14 100 Mechanical Ventilator 45.0 30 84 14 100 02/08/19 06:44 92 16 30 02/08/19 06:43 100 Mechanical Ventilator 30 02/08/19 04:49 98 15 30 02/08/19 04:00 30 02/08/19 04:00 Mechanical Ventilator 02/08/19 04:00 97.9 97 19 112/77 (89) 100 02/08/19 03:52 95 02/08/19 03:15 92 16 100 Mechanical Ventilator 30 94 15 30 02/08/19 01:30 99 16 30 02/08/19 00:00 85 02/08/19 00:00 Mechanical Ventilator 02/08/19 00:00 98.2 83 14 119/61 (80) 100 02/07/19 23:28 85 15 100 Mechanical Ventilator 30 85 15 30 02/07/19 23:27 102 18 100 Mechanical Ventilator 30 02/07/19 21:25 91 15 30 02/07/19 20:53 93 122/58 02/07/19 20:00 30 02/07/19 20:00 Mechanical Ventilator 02/07/19 20:00 98.8 89 15 132/64 (86) 100 02/07/19 19:23 87 15 100 Mechanical Ventilator 30 89 15 30 02/07/19 19:22 100 Mechanical Ventilator 30 02/07/19 19:16 86 02/07/19 17:30 85 14 30 02/07/19 17:29 83 02/07/19 16:00 30 02/07/19 16:00 Mechanical Ventilator 02/07/19 16:00 99.0 89 16 125/61 (82) 100 02/07/19 15:26 89 19 100 Mechanical Ventilator 30 84 15 30 02/07/19 13:20 100 Mechanical Ventilator 30 02/07/19 13:20 84 15 30 I&O Intake and Output 02/07/19 02/08/19 18:59 06:59 Intake Total 1693.334 ml 625 ml Output Total 500 ml Balance 1193.334 ml 625 ml IV Total 1633.334 ml 525 ml Other 60 ml 100 ml Output Urine Total 500 ml # Bowel Movements 1 1 Dressing: other Wound: other Drains: other Cardiovascular: RSR Respiratory: decreased breath sounds Abdomen: soft, present bowel sounds Extremities: no cyanosis Laboratory Tests Test 02/08/19 03:28 02/08/19 10:05 Sodium Level 136 MMOL/L (136-145) 133 MMOL/L (136-145) L Potassium Level 3.7 MMOL/L (3.5-5.1) 3.0 MMOL/L (3.5-5.1) L Chloride Level 101 MMOL/L (98-107) 100 MMOL/L (98-107) Carbon Dioxide Level 22 MMOL/L (21-32) 27 MMOL/L (21-32) Anion Gap 13 mmol/L (5-15) 6 mmol/L (5-15) Blood Urea Nitrogen 15 mg/dL (7-18) 14 mg/dL (7-18) Creatinine 1.8 MG/DL (0.55-1.30) H 1.8 MG/DL (0.55-1.30) H Estimat Glomerular Filtration Rate mL/min (>60) mL/min (>60) Glucose Level 67 MG/DL (74-106) L 160 MG/DL (74-106) H Calcium Level 9.0 MG/DL (8.5-10.1) 8.3 MG/DL (8.5-10.1) L Total Bilirubin 0.3 MG/DL (0.2-1.0) Aspartate Amino Transf (AST/SGOT) 37 U/L (15-37) Alanine Aminotransferase (ALT/SGPT) 49 U/L (12-78) Alkaline Phosphatase 202 U/L (46-116) H Total Protein 7.8 G/DL (6.4-8.2) Albumin 2.1 G/DL (3.4-5.0) L Globulin 5.7 g/dL Albumin/Globulin Ratio 0.4 (1.0-2.7) L Uric Acid 9.3 MG/DL (2.6-7.2) H Phosphorus Level 4.2 MG/DL (2.5-4.9) Magnesium Level 1.2 MG/DL (1.8-2.4) L Iron Level 39 ug/dL (50-175) L Total Iron Binding Capacity 119 ug/dL (250-450) L Percent Iron Saturation 33 % (15-50) Unsaturated Iron Binding 80 ug/dL (112-346) L Ferritin 834 NG/ML (8-388) H C-Reactive Protein, Quantitative > 70.0 mg/dL (0.00-0.90) H Triglycerides Level 157 MG/DL (30-150) H Cholesterol Level 155 MG/DL (< 200) LDL Cholesterol 91 mg/dL (<100) HDL Cholesterol 21 MG/DL (40-60) L Cholesterol/HDL Ratio 7.4 (3.3-4.4) H Vitamin B12 Level > 2000 PG/ML (193-986) H Folate 81.8 NG/ML (8.6-58.9) H Thyroid Stimulating Hormone (TSH) 2.680 uiU/mL (0.358-3.740) Plan Problems: (1) Sacral decubitus ulcer Assessment & Plan: This is a 83-year-old female with multiple medical committees that is currently admitted for medical care and management and identified to have multiple wounds requiring care. On admission patient noted to have a resolved sacral decubitus ulcer. Has had prior care and is well-healed at this time. Will ensure it does not open up again. Patient has a right ischial decubitus ulcer that is resolved. Scar intact and well formed. Will monitor to ensure it does not open up again. Patient has a left ischial decubitus ulcer that can be identified to be stage IV with palpable bone that has been resolving as noted by the periwound tissue and scar but open area approximately 1 cm x 1.5 cm few millimeters deep to bone identified. Unsure if this is been to be completely healed prior and has since opened or if has been healing at this level. No foul odor no drainage was unsure local wound care until healed Bilateral heels soft without signs of injury Resolving pressure injury L ischium(L)1.8cm x (W)1cm.Scattered biofilm at base of wound. Edges flat and adherent with surrounding hyperpigmentation. No odor or exudate noted. Sacrum is pale pink with surrounding hyperpigmentation. Hyperpigmentation R ischium with small sheared area centrally.No areas of erythema or exudate noted. Both heels are soft but blanchable. Skin Assessed under collar of trach and no evidence of skin breakdown noted. All wound Tx. are effective and continued as ordered. Pt ahs an APM/Belén mattress overlay and is being repositioned per protocols and per tolerance.No new skin concerns noted. Treatment plan: Please apply skin protectant and optifoam to sacral area. Change every 3 days Please apply skin protectant and optifoam to right ischial area. Change every 3 days Please apply Thera honey infused gauze to small opening in the left ischial wound bed followed by skin protectant in the periwound and up to foam. Change daily as needed saturation Offload pressure from heels with pillow Air soft mattress Turn every 2 hours Nutritional optimization We will monitor follow with recommendations (2) Sepsis Assessment & Plan: IV abx as per ID trend labs wounds unlikely etiology likely respiratory improving labs noted DAILY ESTIMATED NEEDS: Needs based on Critical care, wounds/ 60kg adj 22-28 kcals/kg 1752-1217 total kcals 1.25-2 g protein/kg 75-120 g total protein 25-30 mL/kg 8399-2965 total fluid mLs NUTRITION DIAGNOSIS: * Swallowing difficulty R/T respiratory status as evidenced by trach/vent dep, PEG dep. * Increased kcal/prot needs R/T wound healing as evidenced by BL buttocks and sacral wound photos, pending evaluation. CURRENT TF:Glucerna 1.5 @ 30ml/hr x 24 hrs ENTERAL NUTRITION RECOMMENDATIONS: Jevity 1.2 @ 55ml/hr x 24 hrs + Prosource 1pkt QD to provide 1320ml, 1584kcal, 73g +11g prot, 1060ml free water - Rec to continue HAND TWISTER TF of Jevity 1.2 - Rec Jevity 1.2 @ goal rate of 55ml/hr x 24 hrs - Add Prosource 1pkt daily to meet protein needs - Flush per MD/ HOB over 30 degrees ADDITIONAL RECOMMENDATIONS: 1) Re-calibrated bedscale wt for accurate CBW 2) Wound healing: Add Vit C 250mg QD + Cristian 1pkt BID : f/up w/ WC eval 3) Monitor lytes, replete as needed (3) Feeding by G-tube Assessment & Plan: cont tube feeds as tolerated (4) Chronic vegetative state Assessment & Plan: incontinence of urine and stool. can soil dressings. nurses doing great job with monitoring and changing prn (5) Leukocytosis Walter Madera Feb 08, 2019 12:48
--- NOTE | 2019-02-08 15:12 | Consultation ---
Consult Note Consult Note asked to eval for rising Cr admitted 16 days ago patient examined non historian data reviewed multiple medical problems . Assessment/Plan Acute renal failure Respiratory failure - Trach Low Mag- Low k , Low Na Anemia UTI / Sepsis Proteinuria / HypoAlbuminemia high Trigs Sz decubs bed bound DNR Hydrate Urine studies avoid Nephrotoxics mag K Phos supplements as needed monitor renal parameters Eric Cortez MD Feb 08, 2019 15:12
[2019-02-08] MEDS ORDERED: HydrALAZINE 25mg tab GT PRN (15:15)
[2019-02-08 16:00] VITALS: BP 134/77
--- NOTE | 2019-02-08 16:00 | NUR ---
NURSE NOTES: Called and left message with Dr. Cortez on urgent telephone number, regarding order clarifications, per Dr. Cortez notes states magnesium, potassium, phosphates replacement as needed. Patient's potassium level is noted at 3.0 today, noted with no potassium replacement at this time. Awaiting call back from Dr. Cortez regarding clarifications. Charge nurse made aware. Patient BP 129/76, HR 83 bpm, sinus rhythm. Will continue to monitor patient.
[2019-02-08] MEDS ORDERED: NS 275ml ONE ×2 (16:10→16:24)
[2019-02-08] MEDS ORDERED: D5NS 1000ml IV ONE ×2 (16:12→16:24)
[2019-02-08] MEDS ORDERED: Sterile Water Irrig 1000ml IRRIG ONE (16:24)
[2019-02-08] MEDS: Docusate 100mg/10ml Liq GT SCH (17:08)
--- NOTE | 2019-02-08 18:29 | NUR ---
NURSE NOTES: Patient is noted with a 5.5 cm x 3 cm discoloration of denuded blister on left hand. Contacted and informed Dr. Madera of situation. Dr. Madera acknowledged and ordered to cover with xeroform and wrap with kerlix and MD will see tomorrow. Noted. Order entered, noted, and carried out. Will continue to monitor patient.
--- NOTE | 2019-02-08 19:12 | NUR ---
HAND-OFF: Report given to JEANNINE Diallo.
[2019-02-08 20:00] VITALS: BP 134/74
[2019-02-09] VITALS: BP 137/66
--- NOTE | 2019-02-09 02:00 | Progress Note ---
DATE: 02/08/2019 CARDIOLOGY PROGRESS NOTE SUBJECTIVE: Condition remains serious with guarded prognosis. Renal function deteriorating. Blood pressure parameters stable, 135/64; pulse 79; respiratory rate 14; and afebrile. Monitor sinus rhythm. Still on ventilator as needed requiring suctioning. Feedings have not been tolerated due to residuals. Multiple cultures are positive. OBJECTIVE: GENERAL: Noncommunicative. LUNGS: Coarse rhonchi. CARDIAC: Regular rhythm and rate. Normal S1 and S2. ABDOMEN: Soft. G-tube intact. EXTREMITIES: Trace dependent edema. LABORATORY DATA: Reviewed. Notable for potassium of 3. Magnesium of 1.2. IMPRESSION: 1. Sepsis. 2. Renal failure. 3. Hypokalemia. 4. Hypomagnesemia. 5. Severe protein-calorie malnutrition. 6. Acute on chronic renal failure. 7. Hypertensive heart disease. 8. Chronic diastolic congestive heart failure. 9. Gastroparesis. PLAN: 1. Cautious hydration. 2. Replacement of magnesium and potassium. 3. Antimicrobials. 4. Monitor volume status and cardiorenal function. 5. PRN antihypertensive. 6. Avoid tight blood pressure control. Bg Hagen M.D. DR: CHARLEE JOB#: [id number] CC:
[2019-02-09] MEDS: D5NS 1,000 ML IV SCH ×2 (02:54→11:13)
[2019-02-09 04:00] VITALS: BP 112/55
[2019-02-09] MEDS: Albuterol/Ipratropium 3ml neb HHN PRN ×6 (04:08→23:33)
[2019-02-09 05:18] LABS: HEMATOCRIT 25.2 % (37.0-47.0); HEMOGLOBIN 7.9 G/DL (12.0-16.0); MEAN CORPUSCULAR VOLUME 83 FL (80-99); PLATELET COUNT 257 K/UL (150-450); RED BLOOD COUNT 3.01 M/UL (4.20-5.40); RED CELL DISTRIBUTION WIDTH 16.5 % (11.6-14.8); WHITE BLOOD COUNT 10.7 K/UL (4.8-10.8)
[2019-02-09 05:39] LABS: ALANINE AMINOTRANSFERASE 34 U/L (12-78); ALBUMIN 1.7 G/DL (3.4-5.0); ALBUMIN/GLOBULIN RATIO 0.3 (1.0-2.7); ALKALINE PHOSPHATASE 156 U/L (46-116); ANION GAP 6 mmol/L (5-15); ASPARTATE AMINO TRANSFERASE 26 U/L (15-37); BILIRUBIN,TOTAL 0.3 MG/DL (0.2-1.0); BLOOD UREA NITROGEN 12 mg/dL (7-18); CALCIUM 8.3 MG/DL (8.5-10.1); CARBON DIOXIDE 26 MMOL/L (21-32); CHLORIDE 104 MMOL/L (98-107); CREATININE 1.8 MG/DL (0.55-1.30); POTASSIUM 2.8 MMOL/L (3.5-5.1); SODIUM 136 MMOL/L (136-145)
--- NOTE | 2019-02-09 07:25 | NUR ---
HAND-OFF: Report given to Vianey PAEZ. Pt remains stable.
[2019-02-09 08:00] VITALS: BP 141/82
--- NOTE | 2019-02-09 08:05 | NUR ---
NURSE NOTES: Report received from JEANNINE Almonte. Patient asleep when received,easily arousal to tactile stimuli.On Trach and vent Anita 6, AC 14, VT 450, FiO2 30% and Peep 5 with no apparent acute distress. Patient noted with large amount of clear oral secretion.Suctioned as tolerated and mouth care done.Afebrile at this time and GT clamped.GT placement checked and intact. No residual at this time.Patient NPO at this time. Patient noted with right hand 24 gauge saline lock with apparent sign of infiltration.Will monitor, and TKO stopped at this time. Left hand 22 gauge Abdomen soft and non distended with bowel sounds present in all 4 quadrants.HOB elevated at 45 degree to prevent aspiration.Right ischium noted with healing full thickness pressure injurie (skin is intact). Left ischium also healing full thickness pressure injury with 1" x 1" circular area of skin opening. Sacrum noted with healing pressure injury with intact skin. Bilateral heels are blanchable. All areas are covered with skin barrier cream abd optifoam. All dressing changed and protocol treatment applied as ordered. Turned and repositioned for skibn management and comfort.Bed locked in low position.3/4 side rails up for safety and repositioned.Will continue close monitoring.Call light within easy reach.Seen by Dr Beltrán and made aware of potassium level 2.8 and hgb 7.9. Will follow up with new order, as stated monitor Hgb for one more day and no transfusion at this time.
--- NOTE | 2019-02-09 08:26 | Pulmonology Progress Note ---
Assessment/Plan Assessment/Plan Impression: Sepsis syndrome Pneumonia VDRF, Trach, G tube, Hypertension, Cardiac disease, Dementia, Previous CVA, Seizure disorder, Respiratory failure with hypoxia Anemia Sacral ulcer renal cyst Plan maintain same mucomyst and duoneb SNF meds as is unable to wean at present back on AC Oxygen as needed Monitor labs for change changes noted Patient is a DNR. No CPR. dc planning for subacute care impression, plan, and exam edited and reviewed in detail care discussed with RN Subjective ROS Limited/Unobtainable: Yes Allergies: Coded Allergies: CODEINE (Verified Allergy, Unknown, HIVES, 09/15/09) Subjective on mucomyst persistent congestion supportive care noted orders in place RT care reviewed overnight care reviewed Objective Last 24 Hour Vital Signs Date Time Temp Pulse Resp B/P (MAP) Pulse Ox O2 Delivery O2 Flow Rate FiO2 02/09/19 06:47 82 14 100 Mechanical Ventilator 45.0 30 80 14 100 02/09/19 06:40 100 Mechanical Ventilator 30 02/09/19 06:39 80 14 30 02/09/19 05:30 94 14 30 02/09/19 04:08 78 14 100 Mechanical Ventilator 30 81 14 30 02/09/19 04:00 75 02/09/19 04:00 Mechanical Ventilator 02/09/19 04:00 97.8 77 17 112/55 (74) 100 02/09/19 04:00 30 02/09/19 01:20 84 14 30 02/09/19 00:00 Mechanical Ventilator 02/09/19 00:00 98.4 80 20 137/66 (89) 100 02/09/19 00:00 30 02/09/19 00:00 84 02/08/19 23:38 83 14 100 Mechanical Ventilator 30 86 14 30 02/08/19 21:56 86 16 30 02/08/19 20:10 80 134/57 02/08/19 20:00 97.4 74 22 134/74 (94) 100 02/08/19 20:00 Mechanical Ventilator 02/08/19 20:00 77 02/08/19 20:00 30 02/08/19 19:07 87 14 100 Mechanical Ventilator 30 92 14 30 02/08/19 19:07 100 Mechanical Ventilator 30 02/08/19 16:40 82 14 30 02/08/19 16:00 Mechanical Ventilator 11/10/19 16:00 80 02/08/19 16:00 98.6 80 19 134/77 (96) 100 02/08/19 16:00 30 02/08/19 15:29 80 14 30 02/08/19 15:29 80 14 99 Mechanical Ventilator 45.0 30 80 14 98 02/08/19 13:25 78 14 30 02/08/19 13:05 78 02/08/19 12:00 98.4 80 19 123/57 (79) 99 02/08/19 12:00 30 02/08/19 12:00 Mechanical Ventilator 02/08/19 10:47 82 16 100 Mechanical Ventilator 45.0 30 80 16 100 02/08/19 10:46 80 16 30 02/08/19 09:24 84 02/08/19 08:48 79 135/64 02/08/19 08:39 79 14 30 Intake and Output 02/08/19 02/09/19 19:00 07:00 Intake Total 1208.334 ml 850 ml Output Total 900 ml 800 ml Balance 308.334 ml 50 ml Free Water 100 ml IV Total 1108.334 ml 750 ml Other 100 ml Output Urine Total 900 ml 800 ml Objective WDWN NAD contracted on vent reduced breath sounds bilaterally with scattered rhonchi same [id number] without MRG NABS nontender no HSM no CC minimal nonfocal nonverbal trach and gt reviewed and edited Microbiology Date/Time Source Procedure Growth Status 02/07/19 09:20 Sputum Gram Stain - Final Resulted 02/07/19 09:20 Sputum Culture - Preliminary Gram Negative Denzel Gram Negative Bacillus 2 Resulted Laboratory Tests 02/08/19 10:05: Sodium Level 133L, Potassium Level 3.0L, Chloride Level 100, Carbon Dioxide Level 27, Anion Gap 6, Blood Urea Nitrogen 14, Creatinine 1.8H, Estimat Glomerular Filtration Rate , Glucose Level 160H, Uric Acid 9.3H, Calcium Level 8.3L, Phosphorus Level 4.2, Magnesium Level 1.2L, Iron Level 39L, Total Iron Binding Capacity 119L, Percent Iron Saturation 33, Unsaturated Iron Binding 80L , Ferritin 834H, C-Reactive Protein, Quantitative > 70.0H, Triglycerides Level 157H, Cholesterol Level 155, LDL Cholesterol 91, HDL Cholesterol 21L, Cholesterol/HDL Ratio 7.4H, Vitamin B12 Level > 2000H, Folate 81.8H, Thyroid Stimulating Hormone (TSH) 2.680 02/08/19 15:55: Urine Random Sodium 57 02/09/19 03:40: Sodium Level 136, Potassium Level 2.8L, Chloride Level 104, Carbon Dioxide Level 26, Anion Gap 6, Blood Urea Nitrogen 12, Creatinine 1.8H, Estimat Glomerular Filtration Rate , Glucose Level 102, Calcium Level 8.3L, Magnesium Level 2.3, White Blood Count 10.7, Red Blood Count 3.01L, Hemoglobin 7.9L, Hematocrit 25.2L, Mean Corpuscular Volume 83, Mean Corpuscular Hemoglobin 26.4L , Mean Corpuscular Hemoglobin Concent 31.6L, Red Cell Distribution Width 16.5H, Platelet Count 257, Mean Platelet Volume 4.7L, Neutrophils (%) (Auto) , Lymphocytes (%) (Auto) , Monocytes (%) (Auto) , Eosinophils (%) (Auto) , Basophils (%) (Auto) , Total Bilirubin 0.3, Aspartate Amino Transf (AST/SGOT) 26 , Alanine Aminotransferase (ALT/SGPT) 34, Alkaline Phosphatase 156H, Pro-B-Type Natriuretic Peptide 577H, Total Protein 6.7, Albumin 1.7L, Globulin 5.0, Albumin /Globulin Ratio 0.3L Current Medications Medications (Trade) Dose Ordered Sig/Maicol Route PRN Reason Start Time Stop Time Status Last Admin Dose Admin Acetaminophen (Tylenol) 650 mg Q4H PRN GT Mild Pain/Temp > 100.5 02/03/19 19:30 03/05/19 19:29 02/07/19 00:13 Acetylcysteine (Mucomyst) 100 mg Q4HRT HHN 02/01/19 15:00 03/03/19 12:59 02/09/19 06:46 Albuterol/ Ipratropium (Albuterol/ Ipratropium) 3 ml Q4H PRN HHN Shortness of Breath 02/07/19 15:00 02/12/19 14:59 02/09/19 06:46 Ascorbic Acid (Vitamin C) 250 mg DAILY GT 02/09/19 09:00 02/24/19 08:59 Bisacodyl (Dulcolax) 10 mg PRN PRN RECTAL Constipation 01/24/19 05:30 02/23/19 05:29 Dextrose/Sodium Chloride 1,000 ml @ 75 mls/hr [id number] IV 02/06/19 07:45 03/08/19 07:44 02/09/19 02:54 Docusate Sodium (Colace) 100 mg TID GT 02/08/19 18:00 02/23/19 05:29 02/08/19 17:08 Heparin Sodium (Porcine) (Heparin 5000 units/ml) 5,000 units EVERY 12 HOURS SUBQ 01/24/19 09:00 02/23/19 08:59 02/08/19 20:12 Hydralazine HCl (Apresoline) 25 mg Q4H PRN GT SBP above 160 02/08/19 15:15 03/09/19 16:29 Levetiracetam (Keppra) 750 mg Q12HR GT 01/28/19 21:00 02/23/19 08:59 02/08/19 20:09 Metoclopramide HCl (Reglan) 10 mg Q6H PRN IVP Nausea & Vomiting 02/07/19 09:00 03/09/19 08:59 Metoprolol Tartrate (Lopressor) 25 mg Q12HR GT 02/07/19 01:45 03/09/19 01:44 02/08/19 20:10 Ondansetron HCl (Zofran) 4 mg Q6H PRN GT Nausea & Vomiting 01/24/19 05:30 02/23/19 05:29 02/06/19 10:30 Pantoprazole (Protonix) 40 mg Q12HR IVP 02/08/19 21:00 03/06/19 08:59 02/08/19 20:10 Potassium Chloride (K-Dur) 40 meq ONCE ORAL 02/09/19 08:06 02/09/19 09:30 Amaury Chan MD Feb 09, 2019 08:26
[2019-02-09] MEDS: levETIRAcetam 500mg/5ml Liquid GT SCH ×2 (08:36→20:08)
[2019-02-09] MEDS: Pantoprazole Inj IVP SCH ×2 (08:36→20:08)
[2019-02-09] MEDS: Docusate 100mg/10ml Liq GT SCH ×3 (08:37→18:02)
[2019-02-09] MEDS: Ascorbic Acid 500mg tab GT SCH (08:37)
[2019-02-09] MEDS: Heparin 5000 units/ml inj SUBQ SCH ×2 (08:43→20:09)
--- NOTE | 2019-02-09 09:43 | NUR ---
CASE MANAGEMENT:REVIEW 02/09/19 SI: SEPSIS. [facility] PNA SACRAL DECUB. CHRONIC RESP FAILURE 97.8 77 17 112/55 100% ON VENT SUPPORT 30% FIO2 H/H-7.9/25.2 K-2.8 CR+1.8 IS: IV KCL Q1HRS X4 IV PROTONIX Q12 LOPRESSOR GT Q12 IVF@75/HR MUCOMYST HHN Q4HRS KEPPRA GT Q12 HEPARIN SQ Q12 : STEP DOWN UNIT DCP: FROM [facility] PL[facility]: DAUGHTER DOESN'T WANT PATIENT TO RETURN TO [facility] REFERRED TO [facility] ~ NEITHER ACCEPTED RE CULTURE FOR [facility]
--- NOTE | 2019-02-09 10:14 | NUR ---
NURSE NOTES: Patient turned and repositioned for comfort and skin management.No significant change in condition at this time.Call light within easy reach.Will continue to monitor.Daughter at bedside and update given.GT feeding started Glucerna 1.5 at 20cc/hr and tolerated well at this time.
--- NOTE | 2019-02-09 11:00 | Infectious Diseases Prog Note ---
"Assessment/Plan Assessment/Plan antibiotics : none A 1. acenitobacter | klebsiella | pseudomonas pneumonia s/p rx 2. respiratory failure 3. hypertension 4. CVA 5. dementia 6. sacral decubitus ulcer 7. rectal VRE colonization 8. leucocytosis improving 9. klebsiella UTI s/p rx 10. renal failure P 1. continue off antibiotics 2. will follow up cultures Subjective ROS Limited/Unobtainable: Yes Allergies: Coded Allergies: CODEINE (Verified Allergy, Unknown, HIVES, 09/15/09) Objective Vital Signs Last 24 Hour Vital Signs Date Time Temp Pulse Resp B/P (MAP) Pulse Ox O2 Delivery O2 Flow Rate FiO2 02/09/19 08:47 87 14 30 02/09/19 08:37 88 141/82 02/09/19 08:00 80 02/09/19 06:47 82 14 100 Mechanical Ventilator 45.0 30 80 14 100 02/09/19 06:40 100 Mechanical Ventilator 30 02/09/19 06:39 80 14 30 02/09/19 05:30 94 14 30 02/09/19 04:08 78 14 100 Mechanical Ventilator 30 81 14 30 02/09/19 04:00 75 02/09/19 04:00 Mechanical Ventilator 02/09/19 04:00 97.8 77 17 112/55 (74) 100 02/09/19 04:00 30 02/09/19 01:20 84 14 30 02/09/19 00:00 Mechanical Ventilator 02/09/19 00:00 98.4 80 20 137/66 (89) 100 02/09/19 00:00 30 02/09/19 00:00 84 02/08/19 23:38 83 14 100 Mechanical Ventilator 30 86 14 30 02/08/19 21:56 86 16 30 02/08/19 20:10 80 134/57 02/08/19 20:00 97.4 74 22 134/74 (94) 100 02/08/19 20:00 Mechanical Ventilator 02/08/19 20:00 77 02/08/19 20:00 30 02/08/19 19:07 87 14 100 Mechanical Ventilator 30 92 14 30 02/08/19 19:07 100 Mechanical Ventilator 30 02/08/19 16:40 82 14 30 02/08/19 16:00 Mechanical Ventilator 02/08/19 16:00 80 02/08/19 16:00 98.6 80 19 134/77 (96) 100 02/08/19 16:00 30 02/08/19 15:29 80 14 30 02/08/19 15:29 80 14 99 Mechanical Ventilator 45.0 30 80 14 98 02/08/19 13:25 78 14 30 02/08/19 13:05 78 02/08/19 12:00 98.4 80 19 123/57 (79) 99 02/08/19 12:00 30 02/08/19 12:00 Mechanical Ventilator Height (Feet): 5 Height (Inches): 5.00 Weight (Pounds): 180 HEENT: status post trach Respiratory/Chest: lungs clear Cardiovascular: normal rate, regular rhythm, no gallop/murmur Abdomen: soft, non tender, other - GT Extremities: no edema Microbiology Date/Time Source Procedure Growth Status 02/07/19 09:20 Sputum Gram Stain - Final Resulted 02/07/19 09:20 Sputum Culture - Preliminary Gram Negative Denzel Gram Negative Bacillus 2 Resulted Laboratory Tests Test 02/08/19 15:55 02/09/19 03:40 Urine Random Sodium 57 mmol/L (20-110) White Blood Count 10.7 K/UL (4.8-10.8) Red Blood Count 3.01 M/UL (4.20-5.40) L Hemoglobin 7.9 G/DL (12.0-16.0) L Hematocrit 25.2 % (37.0-47.0) L Mean Corpuscular Volume 83 FL (80-99) Mean Corpuscular Hemoglobin 26.4 PG (27.0-31.0) L Mean Corpuscular Hemoglobin Concent 31.6 G/DL (32.0-36.0) L Red Cell Distribution Width 16.5 % (11.6-14.8) H Platelet Count 257 K/UL (150-450) Mean Platelet Volume 4.7 FL (6.5-10.1) L Neutrophils (%) (Auto) % (45.0-75.0) Lymphocytes (%) (Auto) % (20.0-45.0) Monocytes (%) (Auto) % (1.0-10.0) Eosinophils (%) (Auto) % (0.0-3.0) Basophils (%) (Auto) % (0.0-2.0) Sodium Level 136 MMOL/L (136-145) Potassium Level 2.8 MMOL/L (3.5-5.1) L Chloride Level 104 MMOL/L (98-107) Carbon Dioxide Level 26 MMOL/L (21-32) Anion Gap 6 mmol/L (5-15) Blood Urea Nitrogen 12 mg/dL (7-18) Creatinine 1.8 MG/DL (0.55-1.30) H Estimat Glomerular Filtration Rate mL/min (>60) Glucose Level 102 MG/DL (74-106) Calcium Level 8.3 MG/DL (8.5-10.1) L Phosphorus Level 4.3 MG/DL (2.5-4.9) Magnesium Level 2.3 MG/DL (1.8-2.4) Total Bilirubin 0.3 MG/DL (0.2-1.0) Aspartate Amino Transf (AST/SGOT) 26 U/L (15-37) Alanine Aminotransferase (ALT/SGPT) 34 U/L (12-78) Alkaline Phosphatase 156 U/L (46-116) H Pro-B-Type Natriuretic Peptide 577 pg/mL (0-125) H Total Protein 6.7 G/DL (6.4-8.2) Albumin 1.7 G/DL (3.4-5.0) L Globulin 5.0 g/dL Albumin/Globulin Ratio 0.3 (1.0-2.7) L Current Medications Medications (Trade) Dose Ordered Sig/Maicol Route PRN Reason Start Time Stop Time Status Last Admin Dose Admin Acetaminophen (Tylenol) 650 mg Q4H PRN GT Mild Pain/Temp > 100.5 02/03/19 19:30 03/05/19 19:29 02/07/19 00:13 Acetylcysteine (Mucomyst) 100 mg Q4HRT HHN 02/01/19 15:00 03/03/19 12:59 02/09/19 06:46 Albuterol/ Ipratropium (Albuterol/ Ipratropium) 3 ml Q4H PRN HHN Shortness of Breath 02/07/19 15:00 02/12/19 14:59 02/09/19 06:46 Ascorbic Acid (Vitamin C) 250 mg DAILY GT 02/09/19 09:00 02/24/19 08:59 02/09/19 08:37 Bisacodyl (Dulcolax) 10 mg PRN PRN RECTAL Constipation 01/24/19 05:30 02/23/19 05:29 Dextrose/Sodium Chloride 1,000 ml @ 75 mls/hr [id number] IV 02/06/19 07:45 03/08/19 07:44 02/09/19 02:54 Docusate Sodium (Colace) 100 mg TID GT 02/08/19 18:00 02/23/19 05:29 02/09/19 08:37 Heparin Sodium (Porcine) (Heparin 5000 units/ml) 5,000 units EVERY 12 HOURS SUBQ 01/24/19 09:00 02/23/19 08:59 02/09/19 08:43 Hydralazine HCl (Apresoline) 25 mg Q4H PRN GT SBP above 160 02/08/19 15:15 03/09/19 16:29 Levetiracetam (Keppra) 750 mg Q12HR GT 01/28/19 21:00 02/23/19 08:59 02/09/19 08:36 Metoclopramide HCl (Reglan) 10 mg Q6H PRN IVP Nausea & Vomiting 02/07/19 09:00 03/09/19 08:59 Metoprolol Tartrate (Lopressor) 25 mg Q12HR GT 02/07/19 01:45 03/09/19 01:44 02/09/19 08:37 Ondansetron HCl (Zofran) 4 mg Q6H PRN GT Nausea & Vomiting 01/24/19 05:30 02/23/19 05:29 02/06/19 10:30 Pantoprazole (Protonix) 40 mg Q12HR IVP 02/08/19 21:00 03/06/19 08:59 02/09/19 08:36 Potassium Chloride 100 ml @ 100 mls/hr Q1HR IVPB 02/09/19 09:00 02/09/19 12:59 02/09/19 10:32 Geovany Yang MD Feb 09, 2019 11:00"
[2019-02-09 12:00] VITALS: BP 145/76
--- NOTE | 2019-02-09 12:06 | General Progress Note ---
Assessment/Plan Problem List: (1) Seizure ICD Codes: R56.9 - Unspecified convulsions SNOMED: 73192800 (2) Anemia ICD Codes: D64.9 - Anemia, unspecified SNOMED: 846380381 Qualifiers: Qualified Codes: D64.9 - Anemia, unspecified (3) Sepsis ICD Codes: A41.9 - Sepsis, unspecified organism SNOMED: 42563510, 775060720 Qualifiers: Qualified Codes: A41.9 - Sepsis, unspecified organism (4) Respiratory failure with hypoxia ICD Codes: J96.91 - Respiratory failure, unspecified with hypoxia SNOMED: 47266754889695951 Qualifiers: Qualified Codes: J96.21 - Acute and chronic respiratory failure with hypoxia (5) HCAP (healthcare-associated pneumonia) ICD Codes: J18.9 - Pneumonia, unspecified organism SNOMED: 570218408, 948193871 (6) Sacral decubitus ulcer ICD Codes: L89.159 - Pressure ulcer of sacral region, unspecified stage SNOMED: 430112095 (7) HTN (hypertension) ICD Codes: I10 - Essential (primary) hypertension SNOMED: 56448475 (8) Chronic vegetative state ICD Codes: R40.3 - Persistent vegetative state SNOMED: 35682809 (9) Chronic respiratory failure ICD Codes: J96.10 - Chronic respiratory failure, unspecified whether with hypoxia or hypercapnia SNOMED: 18747851 (10) Limited mobility ICD Codes: Z74.09 - Other reduced mobility SNOMED: 5558576 Status: stable, progressing Assessment/Plan: vent prn resp rx suctioning as needed wean per pulm retry feeds GI eval appreciated bowel regime reglan monitor residuals cont keppra for szs iv abx dcd ivf renal eval dc planning on hold Subjective ROS Limited/Unobtainable: Yes Constitutional: Reports: malaise, weakness HEENT: Reports: no symptoms Cardiovascular: Reports: no symptoms Respiratory: Reports: cough, shortness of breath, sputum Gastrointestinal/Abdominal: Reports: difficulty swallowing, vomiting Genitourinary: Reports: no symptoms Neurologic/Psychiatric: Reports: pre-existing deficit Endocrine: Reports: no symptoms Hematologic/Lymphatic: Reports: anemia Allergies: Coded Allergies: CODEINE (Verified Allergy, Unknown, HIVES, 09/15/09) All Systems: reviewed and negative except above Subjective no events. no vomiting. on ivf. feeds on hold. ct negative for obstruction. renal fxn unchanged. no szs. Objective Last 24 Hour Vital Signs Date Time Temp Pulse Resp B/P (MAP) Pulse Ox O2 Delivery O2 Flow Rate FiO2 02/09/19 12:00 30 02/09/19 12:00 97.7 78 14 145/76 (99) 100 02/09/19 12:00 Mechanical Ventilator 02/09/19 08:47 87 14 30 02/09/19 08:37 88 141/82 02/09/19 08:00 Mechanical Ventilator 02/09/19 08:00 30 02/09/19 08:00 80 02/09/19 08:00 97.8 88 14 141/82 (101) 100 02/09/19 06:47 82 14 100 Mechanical Ventilator 45.0 30 80 14 100 02/09/19 06:40 100 Mechanical Ventilator 30 02/09/19 06:39 80 14 30 02/09/19 05:30 94 14 30 02/09/19 04:08 78 14 100 Mechanical Ventilator 30 81 14 30 02/09/19 04:00 75 02/09/19 04:00 Mechanical Ventilator 02/09/19 04:00 97.8 77 17 112/55 (74) 100 02/09/19 04:00 30 02/09/19 01:20 84 14 30 02/09/19 00:00 Mechanical Ventilator 02/09/19 00:00 98.4 80 20 137/66 (89) 100 02/09/19 00:00 30 02/09/19 00:00 84 02/08/19 23:38 83 14 100 Mechanical Ventilator 30 86 14 30 02/08/19 21:56 86 16 30 02/08/19 20:10 80 134/57 02/08/19 20:00 97.4 74 22 134/74 (94) 100 02/08/19 20:00 Mechanical Ventilator 02/08/19 20:00 77 02/08/19 20:00 30 02/08/19 19:07 87 14 100 Mechanical Ventilator 30 92 14 30 02/08/19 19:07 100 Mechanical Ventilator 30 02/08/19 16:40 82 14 30 02/08/19 16:00 Mechanical Ventilator 02/08/19 16:00 80 02/08/19 16:00 98.6 80 19 134/77 (96) 100 02/08/19 16:00 30 02/08/19 15:29 80 14 30 02/08/19 15:29 80 14 99 Mechanical Ventilator 45.0 30 80 14 98 02/08/19 13:25 78 14 30 02/08/19 13:05 78 Intake and Output 02/08/19 02/09/19 19:00 07:00 Intake Total 1208.334 ml 925 ml Output Total 900 ml 800 ml Balance 308.334 ml 125 ml Free Water 100 ml IV Total 1108.334 ml 825 ml Other 100 ml Output Urine Total 900 ml 800 ml Laboratory Tests 02/08/19 15:55: Urine Random Sodium 57 02/09/19 03:40: White Blood Count 10.7, Red Blood Count 3.01L, Hemoglobin 7.9L, Hematocrit 25.2L , Mean Corpuscular Volume 83, Mean Corpuscular Hemoglobin 26.4L, Mean Corpuscular Hemoglobin Concent 31.6L, Red Cell Distribution Width 16.5H, Platelet Count 257, Mean Platelet Volume 4.7L, Neutrophils (%) (Auto) , Lymphocytes (%) (Auto) , Monocytes (%) (Auto) , Eosinophils (%) (Auto) , Basophils (%) (Auto) , Sodium Level 136, Potassium Level 2.8L, Chloride Level 104, Carbon Dioxide Level 26, Anion Gap 6, Blood Urea Nitrogen 12, Creatinine 1.8H, Estimat Glomerular Filtration Rate , Glucose Level 102, Calcium Level 8.3L , Phosphorus Level 4.3, Magnesium Level 2.3, Total Bilirubin 0.3, Aspartate Amino Transf (AST/SGOT) 26, Alanine Aminotransferase (ALT/SGPT) 34, Alkaline Phosphatase 156H, Pro-B-Type Natriuretic Peptide 577H, Total Protein 6.7, Albumin 1.7L, Globulin 5.0, Albumin/Globulin Ratio 0.3L Height (Feet): 5 Height (Inches): 5.00 Weight (Pounds): 180 Objective General Appearance: WD/WN, confused Neck: supple Cardiovascular: normal rate, regular rhythm Respiratory/Chest: chest wall non-tender, rhonchi - bilaterally Abdomen: normal bowel sounds, non tender, soft, no organomegaly Edema: no edema noted Arm (L), no edema noted Arm (R), no edema noted Leg (L), no edema noted Leg (R), no edema noted Pedal (L), no edema noted Pedal (R), no edema noted Generalized Neurologic: disoriented, unresponsive, aphasia Irvin Beltrán MD Feb 09, 2019 12:06
--- NOTE | 2019-02-09 12:11 | NUR ---
NURSE NOTES: No significant change in condition.Turned and repositioned for skin management and comfort.Call light within easy reach , will continue to monitor.HOB elevated to prevent aspiration, will continue same care plan
--- NOTE | 2019-02-09 13:53 | Nephrology Progress Note ---
Assessment/Plan Problem List: (1) Acute renal failure (ARF) (2) Chronic respiratory failure (3) Anemia (4) Sepsis Assessment Acute renal failure Respiratory failure - Trach Low Mag- Low k , Low Na Anemia UTI / Sepsis Proteinuria / HypoAlbuminemia high Trigs Sz decubs bed bound DNR Plan K supplement Hydrate Urine studies avoid Nephrotoxics mag K Phos supplements as needed monitor renal parameters Objective Objective Last 24 Hour Vital Signs Date Time Temp Pulse Resp B/P (MAP) Pulse Ox O2 Delivery O2 Flow Rate FiO2 02/09/19 12:54 79 14 30 02/09/19 12:00 30 02/09/19 12:00 97.7 78 14 145/76 (99) 100 02/09/19 12:00 Mechanical Ventilator 02/09/19 12:00 79 02/09/19 11:00 78 14 100 Mechanical Ventilator 45.0 30 78 14 30 02/09/19 08:47 87 14 30 02/09/19 08:37 88 141/82 02/09/19 08:00 Mechanical Ventilator 02/09/19 08:00 30 02/09/19 08:00 80 02/09/19 08:00 97.8 88 14 141/82 (101) 100 02/09/19 06:47 82 14 100 Mechanical Ventilator 45.0 30 80 14 100 02/09/19 06:40 100 Mechanical Ventilator 30 02/09/19 06:39 80 14 30 02/09/19 05:30 94 14 30 02/09/19 04:08 78 14 100 Mechanical Ventilator 30 81 14 30 02/09/19 04:00 75 02/09/19 04:00 Mechanical Ventilator 02/09/19 04:00 97.8 77 17 112/55 (74) 100 02/09/19 04:00 30 02/09/19 01:20 84 14 30 02/09/19 00:00 Mechanical Ventilator 02/09/19 00:00 98.4 80 20 137/66 (89) 100 02/09/19 00:00 30 02/09/19 00:00 84 02/08/19 23:38 83 14 100 Mechanical Ventilator 30 86 14 30 02/08/19 21:56 86 16 30 02/08/19 20:10 80 134/57 02/08/19 20:00 97.4 74 22 134/74 (94) 100 02/08/19 20:00 Mechanical Ventilator 02/08/19 20:00 77 02/08/19 20:00 30 02/08/19 19:07 87 14 100 Mechanical Ventilator 30 92 14 30 02/08/19 19:07 100 Mechanical Ventilator 30 02/08/19 16:40 82 14 30 02/08/19 16:00 Mechanical Ventilator 02/08/19 16:00 80 02/08/19 16:00 98.6 80 19 134/77 (96) 100 02/08/19 16:00 30 02/08/19 15:29 80 14 30 02/08/19 15:29 80 14 99 Mechanical Ventilator 45.0 30 80 14 98 Intake and Output 02/08/19 02/09/19 19:00 07:00 Intake Total 1208.334 ml 925 ml Output Total 900 ml 800 ml Balance 308.334 ml 125 ml Free Water 100 ml IV Total 1108.334 ml 825 ml Other 100 ml Output Urine Total 900 ml 800 ml Laboratory Tests 02/08/19 15:55: Urine Random Sodium 57 02/09/19 03:40: White Blood Count 10.7, Red Blood Count 3.01L, Hemoglobin 7.9L, Hematocrit 25.2L , Mean Corpuscular Volume 83, Mean Corpuscular Hemoglobin 26.4L, Mean Corpuscular Hemoglobin Concent 31.6L, Red Cell Distribution Width 16.5H, Platelet Count 257, Mean Platelet Volume 4.7L, Neutrophils (%) (Auto) , Lymphocytes (%) (Auto) , Monocytes (%) (Auto) , Eosinophils (%) (Auto) , Basophils (%) (Auto) , Sodium Level 136, Potassium Level 2.8L, Chloride Level 104, Carbon Dioxide Level 26, Anion Gap 6, Blood Urea Nitrogen 12, Creatinine 1.8H, Estimat Glomerular Filtration Rate , Glucose Level 102, Calcium Level 8.3L , Phosphorus Level 4.3, Magnesium Level 2.3, Total Bilirubin 0.3, Aspartate Amino Transf (AST/SGOT) 26, Alanine Aminotransferase (ALT/SGPT) 34, Alkaline Phosphatase 156H, Pro-B-Type Natriuretic Peptide 577H, Total Protein 6.7, Albumin 1.7L, Globulin 5.0, Albumin/Globulin Ratio 0.3L Height (Feet): 5 Height (Inches): 5.00 Weight (Pounds): 180 Fouladian,Eric MD Feb 09, 2019 13:53
--- NOTE | 2019-02-09 14:02 | NUR ---
NURSE NOTES: Patient asleep, easily arousal to tactile stimuli.No apparent signs of discomfort. Turned and repositioned for skin management. Call light within easy reach.Will continue close monitoring
--- NOTE | 2019-02-09 15:34 | Surgery Progress Note ---
Surgery Progress Note Subjective Additional Comments Patient developed a blister on her left hand from a infiltrated IV. Currently stable. Dressings being applied as instructed. Some necrosis of the epidermis but dermis looks currently intact thus far. Since blister has drained. Labs noted exam stable otherwise Objective Last 24 Hour Vital Signs Date Time Temp Pulse Resp B/P (MAP) Pulse Ox O2 Delivery O2 Flow Rate FiO2 02/09/19 14:41 83 14 100 Mechanical Ventilator 45.0 30 83 14 30 02/09/19 12:54 79 14 30 02/09/19 12:00 30 02/09/19 12:00 97.7 78 14 145/76 (99) 100 02/09/19 12:00 Mechanical Ventilator 02/09/19 12:00 79 02/09/19 11:00 78 14 100 Mechanical Ventilator 45.0 30 78 14 30 02/09/19 08:47 87 14 30 02/09/19 08:37 88 141/82 02/09/19 08:00 Mechanical Ventilator 02/09/19 08:00 30 02/09/19 08:00 80 02/09/19 08:00 97.8 88 14 141/82 (101) 100 02/09/19 06:47 82 14 100 Mechanical Ventilator 45.0 30 80 14 100 02/09/19 06:40 100 Mechanical Ventilator 30 02/09/19 06:39 80 14 30 02/09/19 05:30 94 14 30 02/09/19 04:08 78 14 100 Mechanical Ventilator 30 81 14 30 02/09/19 04:00 75 02/09/19 04:00 Mechanical Ventilator 02/09/19 04:00 97.8 77 17 112/55 (74) 100 02/09/19 04:00 30 02/09/19 01:20 84 14 30 02/09/19 00:00 Mechanical Ventilator 02/09/19 00:00 98.4 80 20 137/66 (89) 100 02/09/19 00:00 30 02/09/19 00:00 84 02/08/19 23:38 83 14 100 Mechanical Ventilator 30 86 14 30 02/08/19 21:56 86 16 30 02/08/19 20:10 80 134/57 02/08/19 20:00 97.4 74 22 134/74 (94) 100 02/08/19 20:00 Mechanical Ventilator 02/08/19 20:00 77 02/08/19 20:00 30 02/08/19 19:07 87 14 100 Mechanical Ventilator 30 92 14 30 02/08/19 19:07 100 Mechanical Ventilator 30 02/08/19 16:40 82 14 30 02/08/19 16:00 Mechanical Ventilator 02/08/19 16:00 80 02/08/19 16:00 98.6 80 19 134/77 (96) 100 02/08/19 16:00 30 I&O Intake and Output 02/08/19 02/09/19 19:00 07:00 Intake Total 1208.334 ml 925 ml Output Total 900 ml 800 ml Balance 308.334 ml 125 ml Free Water 100 ml IV Total 1108.334 ml 825 ml Other 100 ml Output Urine Total 900 ml 800 ml Dressing: saturated Wound: other Drains: other Cardiovascular: RSR Respiratory: decreased breath sounds Abdomen: soft, present bowel sounds, non-distended Extremities: edema, no cyanosis, other Laboratory Tests Test 02/08/19 15:55 02/09/19 03:40 02/09/19 14:05 Urine Random Sodium 57 mmol/L (20-110) White Blood Count 10.7 K/UL (4.8-10.8) Red Blood Count 3.01 M/UL (4.20-5.40) L Hemoglobin 7.9 G/DL (12.0-16.0) L Hematocrit 25.2 % (37.0-47.0) L Mean Corpuscular Volume 83 FL (80-99) Mean Corpuscular Hemoglobin 26.4 PG (27.0-31.0) L Mean Corpuscular Hemoglobin Concent 31.6 G/DL (32.0-36.0) L Red Cell Distribution Width 16.5 % (11.6-14.8) H Platelet Count 257 K/UL (150-450) Mean Platelet Volume 4.7 FL (6.5-10.1) L Neutrophils (%) (Auto) % (45.0-75.0) Lymphocytes (%) (Auto) % (20.0-45.0) Monocytes (%) (Auto) % (1.0-10.0) Eosinophils (%) (Auto) % (0.0-3.0) Basophils (%) (Auto) % (0.0-2.0) Sodium Level 136 MMOL/L (136-145) Potassium Level 2.8 MMOL/L (3.5-5.1) L Chloride Level 104 MMOL/L (98-107) Carbon Dioxide Level 26 MMOL/L (21-32) Anion Gap 6 mmol/L (5-15) Blood Urea Nitrogen 12 mg/dL (7-18) Creatinine 1.8 MG/DL (0.55-1.30) H Estimat Glomerular Filtration Rate mL/min (>60) Glucose Level 102 MG/DL (74-106) Calcium Level 8.3 MG/DL (8.5-10.1) L Phosphorus Level 4.3 MG/DL (2.5-4.9) Magnesium Level 2.3 MG/DL (1.8-2.4) Total Bilirubin 0.3 MG/DL (0.2-1.0) Aspartate Amino Transf (AST/SGOT) 26 U/L (15-37) Alanine Aminotransferase (ALT/SGPT) 34 U/L (12-78) Alkaline Phosphatase 156 U/L (46-116) H Pro-B-Type Natriuretic Peptide 577 pg/mL (0-125) H Total Protein 6.7 G/DL (6.4-8.2) Albumin 1.7 G/DL (3.4-5.0) L Globulin 5.0 g/dL Albumin/Globulin Ratio 0.3 (1.0-2.7) L Urine Eosinophils Pending Plan Problems: (1) Sacral decubitus ulcer Assessment & Plan: This is a 83-year-old female with multiple medical committees that is currently admitted for medical care and management and identified to have multiple wounds requiring care. On admission patient noted to have a resolved sacral decubitus ulcer. Has had prior care and is well-healed at this time. Will ensure it does not open up again. Patient has a right ischial decubitus ulcer that is resolved. Scar intact and well formed. Will monitor to ensure it does not open up again. Patient has a left ischial decubitus ulcer that can be identified to be stage IV with palpable bone that has been resolving as noted by the periwound tissue and scar but open area approximately 1 cm x 1.5 cm few millimeters deep to bone identified. Unsure if this is been to be completely healed prior and has since opened or if has been healing at this level. No foul odor no drainage was unsure local wound care until healed Bilateral heels soft without signs of injury Resolving pressure injury L ischium(L)1.8cm x (W)1cm.Scattered biofilm at base of wound. Edges flat and adherent with surrounding hyperpigmentation. No odor or exudate noted. Sacrum is pale pink with surrounding hyperpigmentation. Hyperpigmentation R ischium with small sheared area centrally.No areas of erythema or exudate noted. Both heels are soft but blanchable. Skin Assessed under collar of trach and no evidence of skin breakdown noted. All wound Tx. are effective and continued as ordered. Pt ahs an APM/Belén mattress overlay and is being repositioned per protocols and per tolerance.No new skin concerns noted. Treatment plan: Please apply skin protectant and optifoam to sacral area. Change every 3 days Please apply skin protectant and optifoam to right ischial area. Change every 3 days Please apply Thera honey infused gauze to small opening in the left ischial wound bed followed by skin protectant in the periwound and up to foam. Change daily as needed saturation Apply Xeroform and dressing over left hand blister. Offload pressure from heels with pillow Air soft mattress Turn every 2 hours Nutritional optimization We will monitor follow with recommendations (2) Sepsis Assessment & Plan: IV abx as per ID trend labs wounds unlikely etiology likely respiratory improving labs noted DAILY ESTIMATED NEEDS: Needs based on Critical care, wounds/ 60kg adj 22-28 kcals/kg 9045-8270 total kcals 1.25-2 g protein/kg 75-120 g total protein 25-30 mL/kg 6474-5774 total fluid mLs NUTRITION DIAGNOSIS: * Swallowing difficulty R/T respiratory status as evidenced by trach/vent dep, PEG dep. * Increased kcal/prot needs R/T wound healing as evidenced by BL buttocks and sacral wound photos, pending evaluation. CURRENT TF:Glucerna 1.5 @ 30ml/hr x 24 hrs ENTERAL NUTRITION RECOMMENDATIONS: Jevity 1.2 @ 55ml/hr x 24 hrs + Prosource 1pkt QD to provide 1320ml, 1584kcal, 73g +11g prot, 1060ml free water - Rec to continue [employer] TF of Jevity 1.2 - Rec Jevity 1.2 @ goal rate of 55ml/hr x 24 hrs - Add Prosource 1pkt daily to meet protein needs - Flush per MD/ HOB over 30 degrees ADDITIONAL RECOMMENDATIONS: 1) Re-calibrated bedscale wt for accurate CBW 2) Wound healing: Add Vit C 250mg QD + Cristian 1pkt BID : f/up w/ WC eval 3) Monitor lytes, replete as needed (3) Feeding by G-tube Assessment & Plan: DAILY ESTIMATED NEEDS: Needs based on Pulmonary, wounds, bedbound/ 60kg adj 25-28 kcals/kg 2174-6237 total kcals 1.25-2 g protein/kg 75-120 g total protein 25-30 mL/kg 1428-4012 total fluid mLs NUTRITION DIAGNOSIS: * Swallowing difficulty R/T respiratory status as evidenced by pt on T-collar, now back the vent, PEG dep, TF held at this time due to episodes of vomiting. * Increased kcal/prot needs R/T wound healing as evidenced by BL buttocks and sacral wound photos, refer to eval. CURRENT TF:Jevity 1.2 @ 40ml/hr x 24 hrs -> TF ORDER DC'ED THIS AM ENTERAL NUTRITION RECOMMENDATIONS: Osmolite 1.2 @ 55ml/hr x 24 hrs + Prosource 1pkt QD to provide 1320ml, 1584kcal , 73g +11g prot, 1060ml free water - Once medically appropriate to resume TF, rec to initiate isotonic formula of Osmolite 1.2 for possible improved tolerance - Initiate Osmolite 1.2 @ 25ml/hr x 6hrs, advance 10ml q 4-6 hrs as tolerated to goal rate - W/ good TF tolerance at goal, add Prosource 1pkt daily to meet protein needs - Flush per MD/ HOB over 30 degrees ADDITIONAL RECOMMENDATIONS: 1) Re-calibrated bedscale wt for accurate CBW 2) Wound healing: Add Cristian 1pkt BID + MVI x 1 Pt w/ full thickness resolving wound 3) Monitor lytes, replete as needed 4) Monitor NPO status, ability to resume TF. -> held on and off due to vomitting since 02/02, TF dc'ed on 02/06. (4) Chronic vegetative state Assessment & Plan: incontinence of urine and stool. can soil dressings. nurses doing great job with monitoring and changing prn (5) Leukocytosis Walter Madera Feb 09, 2019 15:34
[2019-02-09 16:00] VITALS: BP 125/71
[2019-02-09] MEDS ORDERED: D5NS 1000ml IV ONE (16:22)
[2019-02-09] MEDS ORDERED: NS 500ML ONE (16:22)
--- NOTE | 2019-02-09 16:25 | NUR ---
NURSE NOTES: Patient turned and repositioned.Mouth care done and suctioned as tolerated.HOB elevated to prevent aspiration.Tolerate well feeding at this time and no significant change in condition.Daughter at bedside and update given.Will continue with same care plan
--- NOTE | 2019-02-09 18:05 | NUR ---
NURSE NOTES: ADLs done, patient turned and repositioned for comfort and skin management. Mouth care done and HOB elevated at 45 degree to prevent aspiration.Tolerate well feeding.No significant change in condition. Will continue same care plan.
--- NOTE | 2019-02-09 19:05 | NUR ---
HAND-OFF: Report given to JEANNINE Bravo.
--- NOTE | 2019-02-09 19:07 | NUR ---
NURSE NOTES: Report received from JEANNINE Bautista. Patient asleep when received,easily arousal to tactile stimuli. Pt Trach to Vent Shiley 6, AC 14, VT 450, FiO2 30% and Peep. Pt tolerating current vent settings well. No signs of distress noted at this time. Patient noted with large amount of clear oral secretion. Pt suctioned as tolerated and oral care provided to patient. GT placement checked and intact, no residual noted. GT feeding running as prescribed. Patient noted with right hand 24 gauge saline lock with apparent sign of infiltration.Will monitor, and TKO stopped at this time. Left hand 22 gauge patent and intact. Abdomen soft and non distended with bowel sounds present in all 4 quadrants. HOB elevated at 45 degree to prevent aspiration.Turned and repositioned for skin management and comfort. Bed locked in low position.3/4 side rails up for safety and repositioned.Will continue close monitoring. Call light within easy reach. Will continue to monitor.
[2019-02-09 20:00] VITALS: BP 136/70
--- NOTE | 2019-02-09 22:20 | General Progress Note ---
Assessment/Plan Status: stable, progressing Assessment/Plan: Assessment - N/V overnight, ? etiology, CT negative for obstruction - Anemia with OB (-) stools - Resp failure, s/p Trach - dysphagia, s/p PWG - OBS Recommendations - laxative - retry TF - PPI - Elevate HOB Subjective Allergies: Coded Allergies: CODEINE (Verified Allergy, Unknown, HIVES, 09/15/09) Subjective above noted NAD tolerating feeds Objective Last 24 Hour Vital Signs Date Time Temp Pulse Resp B/P (MAP) Pulse Ox O2 Delivery O2 Flow Rate FiO2 02/09/19 21:36 91 20 30 02/09/19 20:08 101 136/70 02/09/19 20:00 Mechanical Ventilator 02/09/19 20:00 98.2 101 16 136/70 (92) 100 02/09/19 20:00 30 02/09/19 19:11 95 25 100 Mechanical Ventilator 30 95 26 30 02/09/19 19:08 100 Mechanical Ventilator 30 02/09/19 19:05 91 02/09/19 17:00 87 14 30 02/09/19 16:00 87 02/09/19 16:00 30 02/09/19 16:00 Mechanical Ventilator 02/09/19 16:00 98.6 87 16 125/71 (89) 100 02/09/19 14:41 83 14 100 Mechanical Ventilator 45.0 30 83 14 30 02/09/19 12:54 79 14 30 02/09/19 12:00 30 02/09/19 12:00 97.7 78 14 145/76 (99) 100 02/09/19 12:00 Mechanical Ventilator 02/09/19 12:00 79 02/09/19 11:00 78 14 100 Mechanical Ventilator 45.0 30 78 14 30 02/09/19 08:47 87 14 30 02/09/19 08:37 88 141/82 02/09/19 08:00 Mechanical Ventilator 02/09/19 08:00 30 02/09/19 08:00 80 02/09/19 08:00 97.8 88 14 141/82 (101) 100 02/09/19 06:47 82 14 100 Mechanical Ventilator 45.0 30 80 14 100 02/09/19 06:40 100 Mechanical Ventilator 30 02/09/19 06:39 80 14 30 02/09/19 05:30 94 14 30 02/09/19 04:08 78 14 100 Mechanical Ventilator 30 81 14 30 02/09/19 04:00 75 02/09/19 04:00 Mechanical Ventilator 02/09/19 04:00 97.8 77 17 112/55 (74) 100 02/09/19 04:00 30 02/09/19 01:20 84 14 30 02/09/19 00:00 Mechanical Ventilator 02/09/19 00:00 98.4 80 20 137/66 (89) 100 02/09/19 00:00 30 02/09/19 00:00 84 02/08/19 23:38 83 14 100 Mechanical Ventilator 30 86 14 30 Intake and Output 02/08/19 02/09/19 18:59 06:59 Intake Total 1208.334 ml 925 ml Output Total 900 ml 800 ml Balance 308.334 ml 125 ml Free Water 100 ml IV Total 1108.334 ml 825 ml Other 100 ml Output Urine Total 900 ml 800 ml Laboratory Tests 02/09/19 03:40: White Blood Count 10.7, Red Blood Count 3.01L, Hemoglobin 7.9L, Hematocrit 25.2L , Mean Corpuscular Volume 83, Mean Corpuscular Hemoglobin 26.4L, Mean Corpuscular Hemoglobin Concent 31.6L, Red Cell Distribution Width 16.5H, Platelet Count 257, Mean Platelet Volume 4.7L, Neutrophils (%) (Auto) , Lymphocytes (%) (Auto) , Monocytes (%) (Auto) , Eosinophils (%) (Auto) , Basophils (%) (Auto) , Sodium Level 136, Potassium Level 2.8L, Chloride Level 104, Carbon Dioxide Level 26, Anion Gap 6, Blood Urea Nitrogen 12, Creatinine 1.8H, Estimat Glomerular Filtration Rate , Glucose Level 102, Calcium Level 8.3L , Phosphorus Level 4.3, Magnesium Level 2.3, Total Bilirubin 0.3, Aspartate Amino Transf (AST/SGOT) 26, Alanine Aminotransferase (ALT/SGPT) 34, Alkaline Phosphatase 156H, Pro-B-Type Natriuretic Peptide 577H, Total Protein 6.7, Albumin 1.7L, Globulin 5.0, Albumin/Globulin Ratio 0.3L 02/09/19 14:05: Urine Eosinophils None seen Height (Feet): 5 Height (Inches): 5.00 Weight (Pounds): 180 Objective Debilitated AA woman NCAT (+) trach coarse karissa RR obese abd Celio Vaughan MD Feb 09, 2019 22:20
[2019-02-10] VITALS: BP 120/61
--- NOTE | 2019-02-10 | NUR ---
NURSE NOTES: Patient provided with oral care, bed bath and complete linen change. Patient tolerated care well and continues to show O2 saturation between 98-100% GT flushed and remains intact and patent. Patient remains resting in bed; bed is in lowest position, side rails up x3 and padded per protocol, safety wheels engaged and bed alarm activated. HOB elevated per protocol. Will continue to monitor.
[2019-02-10] MEDS: D5NS 1,000 ML IV SCH ×2 (01:32→18:29)
[2019-02-10] MEDS: Albuterol/Ipratropium 3ml neb HHN PRN ×6 (03:13→23:18)
[2019-02-10 04:00] VITALS: BP 127/62
[2019-02-10 05:10] LABS: BASOPHILS % (AUTO) 0.6 % (0.0-2.0); EOSINOPHILS % (AUTO) 6.2 % (0.0-3.0); HEMATOCRIT 28.2 % (37.0-47.0); HEMOGLOBIN 8.9 G/DL (12.0-16.0); LYMPHOCYTES % (AUTO) 26.2 % (20.0-45.0); MEAN CORPUSCULAR VOLUME 85 FL (80-99); MONOCYTES % (AUTO) 5.4 % (1.0-10.0); NEUTROPHILS % (AUTO) 61.6 % (45.0-75.0); PLATELET COUNT 306 K/UL (150-450); RED BLOOD COUNT 3.32 M/UL (4.20-5.40); RED CELL DISTRIBUTION WIDTH 16.3 % (11.6-14.8); WHITE BLOOD COUNT 11.1 K/UL (4.8-10.8)
[2019-02-10 05:41] LABS: ALANINE AMINOTRANSFERASE 58 U/L (12-78); ALBUMIN/GLOBULIN RATIO 0.4 (1.0-2.7); ALKALINE PHOSPHATASE 407 U/L (46-116); ANION GAP 6 mmol/L (5-15); ASPARTATE AMINO TRANSFERASE 71 U/L (15-37); BILIRUBIN,TOTAL 0.5 MG/DL (0.2-1.0); BLOOD UREA NITROGEN 11 mg/dL (7-18); CALCIUM 8.6 MG/DL (8.5-10.1); CARBON DIOXIDE 25 MMOL/L (21-32); CHLORIDE 106 MMOL/L (98-107); CREATININE 1.8 MG/DL (0.55-1.30); POTASSIUM 3.9 MMOL/L (3.5-5.1); SODIUM 137 MMOL/L (136-145)
[2019-02-10 05:48] LABS: PHOSPHORUS 3.8 MG/DL (2.5-4.9)
--- NOTE | 2019-02-10 06:00 | NUR ---
NURSE NOTES: Dr Beltrán at bedside; discussed IV site infiltrated and unable to obtain a new IV catheter despite use of vein finder. Dr Beltrán ordered a PICC line to be placed. Daughter will be present at bedside within the next two hours consent to be obtained at that time. Will follow through orders.
--- NOTE | 2019-02-10 06:15 | Progress Note ---
DATE: 02/09/2019 CARDIOLOGY PROGRESS NOTE SUBJECTIVE: The patient has no vomiting. She remains on IV fluids. Feedings are not being tolerated. Discharge is held. OBJECTIVE: VITAL SIGNS: Blood pressure 145/76, pulse 72, respirations 18, afebrile. LUNGS: Bilateral rhonchi. CARDIAC: Regular rhythm and rate. Normal S1, S2. ABDOMEN: Soft. No tenderness or distention. G-tube intact. EXTREMITIES: Trace dependent edema. LABORATORY DATA: Sputum has a gram-negative robbi and bacillus. We are awaiting identification. White count 10.7, hemoglobin 7.9. Sodium 136, potassium , magnesium 2.2, BUN 12, creatinine 1.8. Pro-natriuretic peptide 577. Albumin 1.7. IMPRESSION: 1. Hypokalemia. 2. Ventilator-dependent respiratory failure. 3. Polymicrobial sepsis. 4. Healthcare-acquired pneumonia. 5. Acute renal failure. 6. Acute on chronic diastolic congestive heart failure. PLAN: 1. Potassium replacement. 2. Recheck electrolytes. 3. Antimicrobials. 4. Await final culture results. 5. Cautious hydration. 6. Pending resumption of feeding. 7. Promotility agents. 8. Ventilator support. 9. Continue beta-martha and p.r.n. hydralazine for blood pressure spikes. Bg Hagen M.D. DR: SHIRA JOB#: [id number] CC:
[2019-02-10] MEDS ORDERED: Lidocaine 1% Plain 30 ml INJ SCH (06:30)
[2019-02-10] MEDS ORDERED: Heparin1,000 units/500ml Premix(Conc:2 units/ml) IV PRN (06:30)
[2019-02-10] MEDS ORDERED: Heparin1,000 units/500ml Premix(Conc:2 units/ml) IV SCH (06:30)
[2019-02-10] MEDS ORDERED: Lidocaine 1% Plain 30 ml INJ PRN (06:30)
--- NOTE | 2019-02-10 06:54 | NUR ---
NURSE NOTES: Paged Dr Beltrán regarding: Mag level 1.7 today and with each Mucomyst treatment pt has started to cough and become restless. RT is currently at bedside working with patient
--- NOTE | 2019-02-10 07:20 | NUR ---
NURSE NOTES: Report received from Fan Greene RN. Patient asleep, responsive to verbal and tactile stimuli, nonverbal, unable to follow commands and make needs known. Trach to vent with settings of AC 14, TV 450, FiO2 30%, PEEP 5, no s/s of respiratory distress noted. GT feeding of Glucerna 1.5 running at 20 cc/hr, no residual noted. HoB elevated. Female external catheter in place and attached to low, continuous suction. Left hand 22g and right hand 22g IV sites patent and asymptomatic. Bed locked in lowest position with padded side rails up x 3. All needs attended to. Will continue to monitor.
--- NOTE | 2019-02-10 07:21 | NUR ---
HAND-OFF: Report given to JEANNINE David. Patient asleep when received,easily arousal to tactile stimuli. Pt Trach to Vent Shiley 6, AC 14, VT 450, FiO2 30% and Peep. No signs of distress noted at this time. Patient noted with large amount of clear oral secretion. Pt suctioned as tolerated. GT feeding running as prescribed. Abdomen soft and non distended with bowel sounds present in all 4 quadrants. HOB elevated at 45 degree to prevent aspiration. Turned and repositioned for skin management and comfort. Bed locked in low position.3/4 side rails up for safety and repositioned.Will continue close monitoring. Call light within easy reach. Endorsed to AM shift PICC line consent needed, Mag level 1.7 and aware of need to follow up.
[2019-02-10 08:00] VITALS: BP 94/56
--- NOTE | 2019-02-10 08:05 | NUR ---
NURSE NOTES: Dr. Beltrán made aware of magnesium level 1.7 and copious amount of oral secretions, white/clear colored. Received order for magnesium sulfate 2g IV and atropine drops sublingual TID. Orders noted and carried out. Will continue to monitor.
[2019-02-10] MEDS: Pantoprazole Inj IVP SCH ×2 (09:01→20:05)
[2019-02-10] MEDS: Ascorbic Acid 500mg tab GT SCH (09:02)
[2019-02-10] MEDS: levETIRAcetam 500mg/5ml Liquid GT SCH ×2 (09:02→20:05)
[2019-02-10] MEDS: Docusate 100mg/10ml Liq GT SCH ×3 (09:02→18:29)
[2019-02-10] MEDS: Heparin 5000 units/ml inj SUBQ SCH ×2 (09:07→20:07)
--- NOTE | 2019-02-10 09:09 | Pulmonology Progress Note ---
Assessment/Plan Assessment/Plan Impression: Sepsis syndrome Pneumonia VDRF, Trach, G tube, Hypertension, Cardiac disease, Dementia, Previous CVA, Seizure disorder, Respiratory failure with hypoxia Anemia Sacral ulcer renal cyst Plan maintain same mucomyst and duoneb SNF meds as is unable to wean at present back on AC Oxygen as needed Monitor labs for change changes noted Patient is a DNR. No CPR. dc planning for subacute care impression, plan, and exam edited and reviewed in detail care discussed with RN Subjective Allergies: Coded Allergies: CODEINE (Verified Allergy, Unknown, HIVES, 09/15/09) Subjective on mucomyst and duoneb noted congestion supportive care noted RT care reviewed overnight care reviewed Objective Last 24 Hour Vital Signs Date Time Temp Pulse Resp B/P (MAP) Pulse Ox O2 Delivery O2 Flow Rate FiO2 02/10/19 08:57 103 94/56 02/10/19 08:50 103 18 30 02/10/19 08:00 98.8 105 23 94/56 (69) 94 02/10/19 07:09 100 Mechanical Ventilator 30 02/10/19 07:05 98 24 100 Mechanical Ventilator 30 94 28 30 02/10/19 05:32 96 20 30 02/10/19 04:00 Mechanical Ventilator 02/10/19 04:00 30 02/10/19 04:00 99.9 99 14 127/62 (83) 100 02/10/19 03:38 97 02/10/19 03:14 99 18 100 Mechanical Ventilator 30 99 18 30 02/10/19 01:25 89 14 30 02/10/19 00:00 98.4 90 18 120/61 (80) 99 02/10/19 00:00 30 02/10/19 00:00 Mechanical Ventilator 02/09/19 23:34 91 18 100 Mechanical Ventilator 30 92 18 30 02/09/19 23:31 89 02/09/19 21:36 91 20 30 02/09/19 20:08 101 136/70 02/09/19 20:00 Mechanical Ventilator 02/09/19 20:00 98.2 101 16 136/70 (92) 100 02/09/19 20:00 30 02/09/19 19:11 95 25 100 Mechanical Ventilator 30 95 26 30 02/09/19 19:08 100 Mechanical Ventilator 30 02/09/19 19:05 91 02/09/19 17:00 87 14 30 02/09/19 16:00 87 02/09/19 16:00 30 02/09/19 16:00 Mechanical Ventilator 02/09/19 16:00 98.6 87 16 125/71 (89) 100 02/09/19 14:41 83 14 100 Mechanical Ventilator 45.0 30 83 14 30 02/09/19 12:54 79 14 30 02/09/19 12:00 30 02/09/19 12:00 97.7 78 14 145/76 (99) 100 02/09/19 12:00 Mechanical Ventilator 02/09/19 12:00 79 02/09/19 11:00 78 14 100 Mechanical Ventilator 45.0 30 78 14 30 Intake and Output 02/09/19 02/10/19 19:00 07:00 Intake Total 1650 ml 1122.5 ml Output Total 850 ml 700 ml Balance 800 ml 422.5 ml Free Water 150 ml 100 ml IV Total 1300 ml 782.5 ml Tube Feeding 200 ml 240 ml Output Urine Total 850 ml 700 ml # Voids 1 # Bowel Movements 2 Objective WDWN NAD contracted on vent reduced breath sounds bilaterally with scattered rhonchi same [id number] without MRG NABS nontender no HSM no CC minimal nonfocal nonverbal trach and gt reviewed and edited Microbiology Date/Time Source Procedure Growth Status 02/07/19 09:20 Sputum Gram Stain - Final Resulted 02/07/19 09:20 Sputum Culture - Preliminary Klebsiella Pneumoniae Providencia Stuartii Resulted 02/09/19 14:05 Indwelling Cath Urine Culture - Preliminary Gram Negative Bacillus 1 Resulted Laboratory Tests 02/09/19 14:05: Urine Eosinophils None seen 02/10/19 04:09: White Blood Count 11.1H, Red Blood Count 3.32L, Hemoglobin 8.9L, Hematocrit 28.2L, Mean Corpuscular Volume 85, Mean Corpuscular Hemoglobin 26.7L, Mean Corpuscular Hemoglobin Concent 31.4L, Red Cell Distribution Width 16.3H, Platelet Count 306, Mean Platelet Volume 5.0L, Neutrophils (%) (Auto) 61.6, Lymphocytes (%) (Auto) 26.2, Monocytes (%) (Auto) 5.4, Eosinophils (%) (Auto) 6.2H, Basophils (%) (Auto) 0.6, Sodium Level 137, Potassium Level 3.9, Chloride Level 106, Carbon Dioxide Level 25, Anion Gap 6, Blood Urea Nitrogen 11, Creatinine 1.8H, Estimat Glomerular Filtration Rate , Glucose Level 93, Calcium Level 8.6, Phosphorus Level 3.8, Magnesium Level 1.7L, Total Bilirubin 0.5, Aspartate Amino Transf (AST/SGOT) 71H, Alanine Aminotransferase (ALT/SGPT) 58, Alkaline Phosphatase 407H, C-Reactive Protein, Quantitative 18.7H, Pro-B-Type Natriuretic Peptide 562H, Total Protein 7.6, Albumin 2.0L, Globulin 5.6, Albumin /Globulin Ratio 0.4L Current Medications Medications (Trade) Dose Ordered Sig/Maicol Route PRN Reason Start Time Stop Time Status Last Admin Dose Admin Acetaminophen (Tylenol) 650 mg Q4H PRN GT Mild Pain/Temp > 100.5 02/03/19 19:30 03/05/19 19:29 02/07/19 00:13 Acetylcysteine (Mucomyst) 100 mg Q4HRT HHN 02/01/19 15:00 03/03/19 12:59 02/10/19 07:11 Albuterol/ Ipratropium (Albuterol/ Ipratropium) 3 ml Q4H PRN HHN Shortness of Breath 02/07/19 15:00 02/12/19 14:59 02/10/19 07:11 Ascorbic Acid (Vitamin C) 250 mg DAILY GT 02/09/19 09:00 02/24/19 08:59 02/09/19 08:37 Atropine Sulfate (Atropine Opth Adriana) 1 drop TID SL 02/10/19 09:30 03/12/19 09:29 Bisacodyl (Dulcolax) 10 mg PRN PRN RECTAL Constipation 01/24/19 05:30 02/23/19 05:29 Chlorhexidine Gluconate (Cesilia-Hex 2%) 1 applic DAILY@2000 TOPIC 02/10/19 20:00 03/12/19 19:59 Dextrose/Sodium Chloride 1,000 ml @ 75 mls/hr [id number] IV 02/06/19 07:45 03/08/19 07:44 02/10/19 01:32 Docusate Sodium (Colace) 100 mg TID GT 02/08/19 18:00 02/23/19 05:29 02/09/19 18:02 Heparin Sodium (Porcine) (Heparin 5000 units/ml) 5,000 units EVERY 12 HOURS SUBQ 01/24/19 09:00 02/23/19 08:59 02/09/19 20:09 Heparin Sodium/ Sodium Chloride (Heparin 1000 units/500ml Premix) 1,000 unit ONCE PRN IV PICC PLACEMENT 02/10/19 06:30 02/11/19 23:59 Hydralazine HCl (Apresoline) 25 mg Q4H PRN GT SBP above 160 02/08/19 15:15 03/09/19 16:29 Levetiracetam (Keppra) 750 mg Q12HR GT 01/28/19 21:00 02/23/19 08:59 02/09/19 20:08 Lidocaine HCl (Xylocaine 1% 30ml) 30 ml ONCE PRN INJ PICC PLACEMENT 02/10/19 06:30 02/11/19 23:59 Magnesium Sulfate 100 ml @ 100 mls/hr Q1H IVPB 02/10/19 09:00 02/10/19 10:59 Metoclopramide HCl (Reglan) 10 mg Q6H PRN IVP Nausea & Vomiting 02/07/19 09:00 03/09/19 08:59 Metoprolol Tartrate (Lopressor) 25 mg Q12HR GT 02/07/19 01:45 03/09/19 01:44 02/09/19 20:08 Ondansetron HCl (Zofran) 4 mg Q6H PRN GT Nausea & Vomiting 01/24/19 05:30 02/23/19 05:29 02/06/19 10:30 Pantoprazole (Protonix) 40 mg Q12HR IVP 02/08/19 21:00 03/06/19 08:59 02/09/19 20:08 Amaury Chan MD Feb 10, 2019 09:09
--- NOTE | 2019-02-10 11:01 | NUR ---
RD ASSESSMENT & RECOMMENDATIONS SEE CARE ACTIVITY FOR COMPLETE ASSESSMENT DAILY ESTIMATED NEEDS: Needs based on Pulmonary, wounds, bedbound/ 60kg adj 25-28 kcals/kg 5292-6376 total kcals 1.25-2 g protein/kg 75-120 g total protein 25-30 mL/kg 2879-2918 total fluid mLs NUTRITION DIAGNOSIS: * Swallowing difficulty R/T respiratory status as evidenced by pt on T-collar, now back the vent, PEG dep, TF changed to low rate at this time due to episodes of vomiting + residuals. * Increased kcal/prot needs R/T wound healing as evidenced by BL buttocks and sacral wound photos, refer to eval. CURRENT TF:Glucerna 1.5 @20ml ENTERAL NUTRITION RECOMMENDATIONS: Osmolite 1.2 @ 55ml/hr x 24 hrs + Prosource 1pkt QD to provide 1320ml, 1584kcal, 73g +11g prot, 1060ml free water - Once medically appropriate to resume TF, rec to initiate isotonic formula of Osmolite 1.2 for possible improved tolerance - Initiate Osmolite 1.2 @ 25ml/hr x 6hrs, advance 10ml q 4-6 hrs as tolerated to goal rate - W/ good TF tolerance at goal, add Prosource 1pkt daily to meet protein needs - Flush per MD/ HOB over 30 degrees ADDITIONAL RECOMMENDATIONS: 1) Re-calibrated bedscale wt for accurate CBW 2) Wound healing: Add Cristian 1pkt BID w/ improved Tf tolerace + MVI x 1 (full thickness resolving wound) 3) Monitor lytes, replete as needed (low Mg) 4) Monitor NPO status, ability to resume TF. -> held on and off due to vomiting since 02/02, now resumed
[2019-02-10 12:00] VITALS: BP 116/56
--- NOTE | 2019-02-10 12:05 | Infectious Diseases Prog Note ---
Assessment/Plan Assessment/Plan antibiotics : none A 1. UTI with gram negative rods 2. respiratory failure 3. hypertension 4. CVA 5. dementia 6. sacral decubitus ulcer 7. rectal VRE colonization 8. leucocytosis improving 9. UTI 10. renal failure P 1. start zosyn 2. will follow up cultures Subjective ROS Limited/Unobtainable: Yes Allergies: Coded Allergies: CODEINE (Verified Allergy, Unknown, HIVES, 09/15/09) Objective Vital Signs Last 24 Hour Vital Signs Date Time Temp Pulse Resp B/P (MAP) Pulse Ox O2 Delivery O2 Flow Rate FiO2 02/10/19 10:49 94 14 100 Mechanical Ventilator 30 94 14 30 02/10/19 08:57 103 94/56 02/10/19 08:50 103 18 30 02/10/19 08:00 Mechanical Ventilator 02/10/19 08:00 30 02/10/19 08:00 98.8 105 23 94/56 (69) 94 02/10/19 07:44 99 02/10/19 07:09 100 Mechanical Ventilator 30 02/10/19 07:05 98 24 100 Mechanical Ventilator 30 94 28 30 02/10/19 05:32 96 20 30 02/10/19 04:00 Mechanical Ventilator 02/10/19 04:00 30 02/10/19 04:00 99.9 99 14 127/62 (83) 100 02/10/19 03:38 97 02/10/19 03:14 99 18 100 Mechanical Ventilator 30 99 18 30 02/10/19 01:25 89 14 30 02/10/19 00:00 98.4 90 18 120/61 (80) 99 02/10/19 00:00 30 02/10/19 00:00 Mechanical Ventilator 02/09/19 23:34 91 18 100 Mechanical Ventilator 30 92 18 30 02/09/19 23:31 89 02/09/19 21:36 91 20 30 02/09/19 20:08 101 136/70 02/09/19 20:00 Mechanical Ventilator 02/09/19 20:00 98.2 101 16 136/70 (92) 100 02/09/19 20:00 30 02/09/19 19:11 95 25 100 Mechanical Ventilator 30 95 26 30 02/09/19 19:08 100 Mechanical Ventilator 30 02/09/19 19:05 91 02/09/19 17:00 87 14 30 11/11/19 16:00 87 02/09/19 16:00 30 02/09/19 16:00 Mechanical Ventilator 02/09/19 16:00 98.6 87 16 125/71 (89) 100 02/09/19 14:41 83 14 100 Mechanical Ventilator 45.0 30 83 14 30 02/09/19 12:54 79 14 30 Height (Feet): 5 Height (Inches): 5.00 Weight (Pounds): 180 HEENT: status post trach Respiratory/Chest: lungs clear Cardiovascular: normal rate, regular rhythm, no gallop/murmur Abdomen: soft, non tender, other - GT Extremities: no edema Microbiology Date/Time Source Procedure Growth Status 02/09/19 14:05 Indwelling Cath Urine Culture - Preliminary Gram Negative Bacillus 1 Resulted Laboratory Tests Test 02/09/19 14:05 02/10/19 04:09 Urine Eosinophils None seen (NONE SEEN) White Blood Count 11.1 K/UL (4.8-10.8) H Red Blood Count 3.32 M/UL (4.20-5.40) L Hemoglobin 8.9 G/DL (12.0-16.0) L Hematocrit 28.2 % (37.0-47.0) L Mean Corpuscular Volume 85 FL (80-99) Mean Corpuscular Hemoglobin 26.7 PG (27.0-31.0) L Mean Corpuscular Hemoglobin Concent 31.4 G/DL (32.0-36.0) L Red Cell Distribution Width 16.3 % (11.6-14.8) H Platelet Count 306 K/UL (150-450) Mean Platelet Volume 5.0 FL (6.5-10.1) L Neutrophils (%) (Auto) 61.6 % (45.0-75.0) Lymphocytes (%) (Auto) 26.2 % (20.0-45.0) Monocytes (%) (Auto) 5.4 % (1.0-10.0) Eosinophils (%) (Auto) 6.2 % (0.0-3.0) H Basophils (%) (Auto) 0.6 % (0.0-2.0) Sodium Level 137 MMOL/L (136-145) Potassium Level 3.9 MMOL/L (3.5-5.1) Chloride Level 106 MMOL/L (98-107) Carbon Dioxide Level 25 MMOL/L (21-32) Anion Gap 6 mmol/L (5-15) Blood Urea Nitrogen 11 mg/dL (7-18) Creatinine 1.8 MG/DL (0.55-1.30) H Estimat Glomerular Filtration Rate mL/min (>60) Glucose Level 93 MG/DL (74-106) Calcium Level 8.6 MG/DL (8.5-10.1) Phosphorus Level 3.8 MG/DL (2.5-4.9) Magnesium Level 1.7 MG/DL (1.8-2.4) L Total Bilirubin 0.5 MG/DL (0.2-1.0) Aspartate Amino Transf (AST/SGOT) 71 U/L (15-37) H Alanine Aminotransferase (ALT/SGPT) 58 U/L (12-78) Alkaline Phosphatase 407 U/L (46-116) H C-Reactive Protein, Quantitative 18.7 mg/dL (0.00-0.90) H Pro-B-Type Natriuretic Peptide 562 pg/mL (0-125) H Total Protein 7.6 G/DL (6.4-8.2) Albumin 2.0 G/DL (3.4-5.0) L Globulin 5.6 g/dL Albumin/Globulin Ratio 0.4 (1.0-2.7) L Current Medications Medications (Trade) Dose Ordered Sig/Maicol Route PRN Reason Start Time Stop Time Status Last Admin Dose Admin Acetaminophen (Tylenol) 650 mg Q4H PRN GT Mild Pain/Temp > 100.5 02/03/19 19:30 03/05/19 19:29 02/07/19 00:13 Acetylcysteine (Mucomyst) 100 mg Q4HRT HHN 02/01/19 15:00 03/03/19 12:59 02/10/19 10:52 Albuterol/ Ipratropium (Albuterol/ Ipratropium) 3 ml Q4H PRN HHN Shortness of Breath 02/07/19 15:00 02/12/19 14:59 02/10/19 10:52 Ascorbic Acid (Vitamin C) 250 mg DAILY GT 02/09/19 09:00 02/24/19 08:59 02/10/19 09:02 Atropine Sulfate (Atropine Opth Adriana) 1 drop TID SL 02/10/19 09:30 03/12/19 09:29 02/10/19 09:02 Bisacodyl (Dulcolax) 10 mg PRN PRN RECTAL Constipation 01/24/19 05:30 02/23/19 05:29 Chlorhexidine Gluconate (Cesilia-Hex 2%) 1 applic DAILY@2000 TOPIC 02/10/19 20:00 03/12/19 19:59 Dextrose/Sodium Chloride 1,000 ml @ 75 mls/hr [id number] IV 02/06/19 07:45 03/08/19 07:44 02/10/19 01:32 Docusate Sodium (Colace) 100 mg TID GT 02/08/19 18:00 02/23/19 05:29 02/10/19 09:02 Heparin Sodium (Porcine) (Heparin 5000 units/ml) 5,000 units EVERY 12 HOURS SUBQ 01/24/19 09:00 02/23/19 08:59 02/10/19 09:07 Heparin Sodium/ Sodium Chloride (Heparin 1000 units/500ml Premix) 1,000 unit ONCE PRN IV PICC PLACEMENT 02/10/19 06:30 02/11/19 23:59 Hydralazine HCl (Apresoline) 25 mg Q4H PRN GT SBP above 160 02/08/19 15:15 03/09/19 16:29 Levetiracetam (Keppra) 750 mg Q12HR GT 01/28/19 21:00 02/23/19 08:59 02/10/19 09:02 Lidocaine HCl (Xylocaine 1% 30ml) 30 ml ONCE PRN INJ PICC PLACEMENT 02/10/19 06:30 02/11/19 23:59 Metoclopramide HCl (Reglan) 10 mg Q6H PRN IVP Nausea & Vomiting 02/07/19 09:00 03/09/19 08:59 Metoprolol Tartrate (Lopressor) 25 mg Q12HR GT 02/07/19 01:45 03/09/19 01:44 02/09/19 20:08 Ondansetron HCl (Zofran) 4 mg Q6H PRN GT Nausea & Vomiting 01/24/19 05:30 02/23/19 05:29 11/8/19 10:30 Pantoprazole (Protonix) 40 mg Q12HR IVP 02/08/19 21:00 03/06/19 08:59 02/10/19 09:01 Geovany Yang MD Feb 10, 2019 12:05
[2019-02-10] MEDS: Piperacillin/Tazobactam 3.375 GM in NS 110 ML IVPB SCH ×2 (13:19→20:07)
--- NOTE | 2019-02-10 14:33 | Surgery Progress Note ---
Surgery Progress Note Subjective Additional Comments no acute events exam stable labs noted Objective Last 24 Hour Vital Signs Date Time Temp Pulse Resp B/P (MAP) Pulse Ox O2 Delivery O2 Flow Rate FiO2 02/10/19 13:14 86 14 30 02/10/19 12:00 30 02/10/19 12:00 Mechanical Ventilator 02/10/19 12:00 99.0 94 14 116/56 (76) 100 02/10/19 11:27 96 02/10/19 10:49 94 14 100 Mechanical Ventilator 30 94 14 30 02/10/19 08:57 103 94/56 02/10/19 08:50 103 18 30 02/10/19 08:00 Mechanical Ventilator 02/10/19 08:00 30 02/10/19 08:00 98.8 105 23 94/56 (69) 94 02/10/19 07:44 99 02/10/19 07:09 100 Mechanical Ventilator 30 02/10/19 07:05 98 24 100 Mechanical Ventilator 30 94 28 30 02/10/19 05:32 96 20 30 02/10/19 04:00 Mechanical Ventilator 02/10/19 04:00 30 02/10/19 04:00 99.9 99 14 127/62 (83) 100 02/10/19 03:38 97 02/10/19 03:14 99 18 100 Mechanical Ventilator 30 99 18 30 02/10/19 01:25 89 14 30 02/10/19 00:00 98.4 90 18 120/61 (80) 99 02/10/19 00:00 30 02/10/19 00:00 Mechanical Ventilator 02/09/19 23:34 91 18 100 Mechanical Ventilator 30 92 18 30 02/09/19 23:31 89 02/09/19 21:36 91 20 30 02/09/19 20:08 101 136/70 02/09/19 20:00 Mechanical Ventilator 02/09/19 20:00 98.2 101 16 136/70 (92) 100 02/09/19 20:00 30 02/09/19 19:11 95 25 100 Mechanical Ventilator 30 95 26 30 02/09/19 19:08 100 Mechanical Ventilator 30 02/09/19 19:05 91 02/09/19 17:00 87 14 30 02/09/19 16:00 87 02/09/19 16:00 30 11/11/19 16:00 Mechanical Ventilator 02/09/19 16:00 98.6 87 16 125/71 (89) 100 02/09/19 14:41 83 14 100 Mechanical Ventilator 45.0 30 83 14 30 I&O Intake and Output 02/09/19 02/10/19 19:00 07:00 Intake Total 1650 ml 1122.5 ml Output Total 850 ml 700 ml Balance 800 ml 422.5 ml Free Water 150 ml 100 ml IV Total 1300 ml 782.5 ml Tube Feeding 200 ml 240 ml Output Urine Total 850 ml 700 ml # Voids 1 # Bowel Movements 2 Dressing: other Wound: other Drains: other Cardiovascular: RSR Respiratory: decreased breath sounds Abdomen: soft, present bowel sounds Extremities: no edema, no cyanosis Laboratory Tests Test 02/10/19 04:09 White Blood Count 11.1 K/UL (4.8-10.8) H Red Blood Count 3.32 M/UL (4.20-5.40) L Hemoglobin 8.9 G/DL (12.0-16.0) L Hematocrit 28.2 % (37.0-47.0) L Mean Corpuscular Volume 85 FL (80-99) Mean Corpuscular Hemoglobin 26.7 PG (27.0-31.0) L Mean Corpuscular Hemoglobin Concent 31.4 G/DL (32.0-36.0) L Red Cell Distribution Width 16.3 % (11.6-14.8) H Platelet Count 306 K/UL (150-450) Mean Platelet Volume 5.0 FL (6.5-10.1) L Neutrophils (%) (Auto) 61.6 % (45.0-75.0) Lymphocytes (%) (Auto) 26.2 % (20.0-45.0) Monocytes (%) (Auto) 5.4 % (1.0-10.0) Eosinophils (%) (Auto) 6.2 % (0.0-3.0) H Basophils (%) (Auto) 0.6 % (0.0-2.0) Sodium Level 137 MMOL/L (136-145) Potassium Level 3.9 MMOL/L (3.5-5.1) Chloride Level 106 MMOL/L (98-107) Carbon Dioxide Level 25 MMOL/L (21-32) Anion Gap 6 mmol/L (5-15) Blood Urea Nitrogen 11 mg/dL (7-18) Creatinine 1.8 MG/DL (0.55-1.30) H Estimat Glomerular Filtration Rate mL/min (>60) Glucose Level 93 MG/DL (74-106) Calcium Level 8.6 MG/DL (8.5-10.1) Phosphorus Level 3.8 MG/DL (2.5-4.9) Magnesium Level 1.7 MG/DL (1.8-2.4) L Total Bilirubin 0.5 MG/DL (0.2-1.0) Aspartate Amino Transf (AST/SGOT) 71 U/L (15-37) H Alanine Aminotransferase (ALT/SGPT) 58 U/L (12-78) Alkaline Phosphatase 407 U/L (46-116) H C-Reactive Protein, Quantitative 18.7 mg/dL (0.00-0.90) H Pro-B-Type Natriuretic Peptide 562 pg/mL (0-125) H Total Protein 7.6 G/DL (6.4-8.2) Albumin 2.0 G/DL (3.4-5.0) L Globulin 5.6 g/dL Albumin/Globulin Ratio 0.4 (1.0-2.7) L Plan Problems: (1) Sacral decubitus ulcer Assessment & Plan: This is a 83-year-old female with multiple medical committees that is currently admitted for medical care and management and identified to have multiple wounds requiring care. On admission patient noted to have a resolved sacral decubitus ulcer. Has had prior care and is well-healed at this time. Will ensure it does not open up again. Patient has a right ischial decubitus ulcer that is resolved. Scar intact and well formed. Will monitor to ensure it does not open up again. Patient has a left ischial decubitus ulcer that can be identified to be stage IV with palpable bone that has been resolving as noted by the periwound tissue and scar but open area approximately 1 cm x 1.5 cm few millimeters deep to bone identified. Unsure if this is been to be completely healed prior and has since opened or if has been healing at this level. No foul odor no drainage was unsure local wound care until healed Bilateral heels soft without signs of injury Resolving pressure injury L ischium(L)1.8cm x (W)1cm.Scattered biofilm at base of wound. Edges flat and adherent with surrounding hyperpigmentation. No odor or exudate noted. Sacrum is pale pink with surrounding hyperpigmentation. Hyperpigmentation R ischium with small sheared area centrally.No areas of erythema or exudate noted. Both heels are soft but blanchable. Skin Assessed under collar of trach and no evidence of skin breakdown noted. All wound Tx. are effective and continued as ordered. Pt ahs an APM/Belén mattress overlay and is being repositioned per protocols and per tolerance.No new skin concerns noted. Treatment plan: Please apply skin protectant and optifoam to sacral area. Change every 3 days Please apply skin protectant and optifoam to right ischial area. Change every 3 days Please apply Thera honey infused gauze to small opening in the left ischial wound bed followed by skin protectant in the periwound and up to foam. Change daily as needed saturation Apply Xeroform and dressing over left hand blister. Offload pressure from heels with pillow Air soft mattress Turn every 2 hours Nutritional optimization We will monitor follow with recommendations (2) Sepsis Assessment & Plan: IV abx as per ID trend labs wounds unlikely etiology likely respiratory improved (3) Feeding by G-tube Assessment & Plan: DAILY ESTIMATED NEEDS: Needs based on Pulmonary, wounds, bedbound/ 60kg adj 25-28 kcals/kg 1050-6439 total kcals 1.25-2 g protein/kg 75-120 g total protein 25-30 mL/kg 4553-8840 total fluid mLs NUTRITION DIAGNOSIS: * Swallowing difficulty R/T respiratory status as evidenced by pt on T-collar, now back the vent, PEG dep, TF held at this time due to episodes of vomiting. * Increased kcal/prot needs R/T wound healing as evidenced by BL buttocks and sacral wound photos, refer to eval. CURRENT TF:Jevity 1.2 @ 40ml/hr x 24 hrs -> TF ORDER DC'ED THIS AM ENTERAL NUTRITION RECOMMENDATIONS: Osmolite 1.2 @ 55ml/hr x 24 hrs + Prosource 1pkt QD to provide 1320ml, 1584kcal , 73g +11g prot, 1060ml free water - Once medically appropriate to resume TF, rec to initiate isotonic formula of Osmolite 1.2 for possible improved tolerance - Initiate Osmolite 1.2 @ 25ml/hr x 6hrs, advance 10ml q 4-6 hrs as tolerated to goal rate - W/ good TF tolerance at goal, add Prosource 1pkt daily to meet protein needs - Flush per MD/ HOB over 30 degrees ADDITIONAL RECOMMENDATIONS: 1) Re-calibrated bedscale wt for accurate CBW 2) Wound healing: Add Cristian 1pkt BID + MVI x 1 Pt w/ full thickness resolving wound 3) Monitor lytes, replete as needed 4) Monitor NPO status, ability to resume TF. -> held on and off due to vomitting since 02/02, TF dc'ed on 02/06. (4) Chronic vegetative state Assessment & Plan: incontinence of urine and stool. can soil dressings. nurses doing great job with monitoring and changing prn (5) Leukocytosis Walter [place] Feb 10, 2019 14:33
--- NOTE | 2019-02-10 14:46 | Nephrology Progress Note ---
Assessment/Plan Problem List: (1) Acute renal failure (ARF) (2) Chronic respiratory failure (3) Anemia (4) Sepsis Assessment Acute renal failure Respiratory failure - Trach Low Mag- Low k , Low Na Anemia UTI / Sepsis Proteinuria / HypoAlbuminemia high Trigs Sz decubs bed bound DNR Plan K supplement Hydrate Urine studies avoid Nephrotoxics mag K Phos supplements as needed monitor renal parameters Subjective ROS Limited/Unobtainable: Yes Objective Objective Last 24 Hour Vital Signs Date Time Temp Pulse Resp B/P (MAP) Pulse Ox O2 Delivery O2 Flow Rate FiO2 02/10/19 13:14 86 14 30 02/10/19 12:00 30 02/10/19 12:00 Mechanical Ventilator 02/10/19 12:00 99.0 94 14 116/56 (76) 100 02/10/19 11:27 96 02/10/19 10:49 94 14 100 Mechanical Ventilator 30 94 14 30 02/10/19 08:57 103 94/56 02/10/19 08:50 103 18 30 02/10/19 08:00 Mechanical Ventilator 02/10/19 08:00 30 02/10/19 08:00 98.8 105 23 94/56 (69) 94 02/10/19 07:44 99 02/10/19 07:09 100 Mechanical Ventilator 30 02/10/19 07:05 98 24 100 Mechanical Ventilator 30 94 28 30 02/10/19 05:32 96 20 30 02/10/19 04:00 Mechanical Ventilator 02/10/19 04:00 30 02/10/19 04:00 99.9 99 14 127/62 (83) 100 02/10/19 03:38 97 02/10/19 03:14 99 18 100 Mechanical Ventilator 30 99 18 30 02/10/19 01:25 89 14 30 02/10/19 00:00 98.4 90 18 120/61 (80) 99 02/10/19 00:00 30 02/10/19 00:00 Mechanical Ventilator 02/09/19 23:34 91 18 100 Mechanical Ventilator 30 92 18 30 02/09/19 23:31 89 02/09/19 21:36 91 20 30 02/09/19 20:08 101 136/70 02/09/19 20:00 Mechanical Ventilator 02/09/19 20:00 98.2 101 16 136/70 (92) 100 02/09/19 20:00 30 02/09/19 19:11 95 25 100 Mechanical Ventilator 30 95 26 30 02/09/19 19:08 100 Mechanical Ventilator 30 02/09/19 19:05 91 02/09/19 17:00 87 14 30 02/09/19 16:00 87 02/09/19 16:00 30 02/09/19 16:00 Mechanical Ventilator 02/09/19 16:00 98.6 87 16 125/71 (89) 100 Intake and Output 02/09/19 02/10/19 19:00 07:00 Intake Total 1650 ml 1122.5 ml Output Total 850 ml 700 ml Balance 800 ml 422.5 ml Free Water 150 ml 100 ml IV Total 1300 ml 782.5 ml Tube Feeding 200 ml 240 ml Output Urine Total 850 ml 700 ml # Voids 1 # Bowel Movements 2 Laboratory Tests 02/10/19 04:09: White Blood Count 11.1H, Red Blood Count 3.32L, Hemoglobin 8.9L, Hematocrit 28.2L, Mean Corpuscular Volume 85, Mean Corpuscular Hemoglobin 26.7L, Mean Corpuscular Hemoglobin Concent 31.4L, Red Cell Distribution Width 16.3H, Platelet Count 306, Mean Platelet Volume 5.0L, Neutrophils (%) (Auto) 61.6, Lymphocytes (%) (Auto) 26.2, Monocytes (%) (Auto) 5.4, Eosinophils (%) (Auto) 6.2H, Basophils (%) (Auto) 0.6, Sodium Level 137, Potassium Level 3.9, Chloride Level 106, Carbon Dioxide Level 25, Anion Gap 6, Blood Urea Nitrogen 11, Creatinine 1.8H, Estimat Glomerular Filtration Rate , Glucose Level 93, Calcium Level 8.6, Phosphorus Level 3.8, Magnesium Level 1.7L, Total Bilirubin 0.5, Aspartate Amino Transf (AST/SGOT) 71H, Alanine Aminotransferase (ALT/SGPT) 58, Alkaline Phosphatase 407H, C-Reactive Protein, Quantitative 18.7H, Pro-B-Type Natriuretic Peptide 562H, Total Protein 7.6, Albumin 2.0L, Globulin 5.6, Albumin /Globulin Ratio 0.4L Height (Feet): 5 Height (Inches): 5.00 Weight (Pounds): 180 General Appearance: no apparent distress EENT: other - trach - vent Cardiovascular: tachycardia Respiratory/Chest: decreased breath sounds Abdomen: distended Eric Cortez MD Feb 10, 2019 14:46
--- NOTE | 2019-02-10 15:25 | General Progress Note ---
Assessment/Plan Problem List: (1) Seizure ICD Codes: R56.9 - Unspecified convulsions SNOMED: 24809564 (2) Anemia ICD Codes: D64.9 - Anemia, unspecified SNOMED: 043917346 Qualifiers: Qualified Codes: D64.9 - Anemia, unspecified (3) Sepsis ICD Codes: A41.9 - Sepsis, unspecified organism SNOMED: 23654107, 855681059 Qualifiers: Qualified Codes: A41.9 - Sepsis, unspecified organism (4) Respiratory failure with hypoxia ICD Codes: J96.91 - Respiratory failure, unspecified with hypoxia SNOMED: 30340904926649138 Qualifiers: Qualified Codes: J96.21 - Acute and chronic respiratory failure with hypoxia (5) HCAP (healthcare-associated pneumonia) ICD Codes: J18.9 - Pneumonia, unspecified organism SNOMED: 711786224, 639102618 (6) Sacral decubitus ulcer ICD Codes: L89.159 - Pressure ulcer of sacral region, unspecified stage SNOMED: 873835832 (7) HTN (hypertension) ICD Codes: I10 - Essential (primary) hypertension SNOMED: 53860452 (8) Chronic vegetative state ICD Codes: R40.3 - Persistent vegetative state SNOMED: 46150343 (9) Chronic respiratory failure ICD Codes: J96.10 - Chronic respiratory failure, unspecified whether with hypoxia or hypercapnia SNOMED: 74837720 (10) Limited mobility ICD Codes: Z74.09 - Other reduced mobility SNOMED: 6032743 Status: stable, progressing Assessment/Plan: vent prn resp rx suctioning as needed wean per pulm retry feeds GI eval appreciated bowel regime reglan monitor residuals cont keppra for szs iv abx dcd ivf renal eval dc planning on hold Subjective ROS Limited/Unobtainable: No Constitutional: Reports: malaise, weakness HEENT: Reports: no symptoms Cardiovascular: Reports: no symptoms Respiratory: Reports: cough Gastrointestinal/Abdominal: Reports: difficulty swallowing Genitourinary: Reports: no symptoms Neurologic/Psychiatric: Reports: pre-existing deficit, seizure Endocrine: Reports: no symptoms Hematologic/Lymphatic: Reports: anemia Allergies: Coded Allergies: CODEINE (Verified Allergy, Unknown, HIVES, 09/15/09) All Systems: reviewed and negative except above Subjective no events. no vomiting. on ivf. tolerating feeds at low rate. on iv abx for uti. on the vent. +secertions. poorly responsive Objective Last 24 Hour Vital Signs Date Time Temp Pulse Resp B/P (MAP) Pulse Ox O2 Delivery O2 Flow Rate FiO2 02/10/19 14:58 89 15 100 Mechanical Ventilator 30 92 14 30 02/10/19 13:14 86 14 30 02/10/19 12:00 30 02/10/19 12:00 Mechanical Ventilator 02/10/19 12:00 99.0 94 14 116/56 (76) 100 02/10/19 11:27 96 02/10/19 10:49 94 14 100 Mechanical Ventilator 30 94 14 30 02/10/19 08:57 103 94/56 02/10/19 08:50 103 18 30 02/10/19 08:00 Mechanical Ventilator 02/10/19 08:00 30 02/10/19 08:00 98.8 105 23 94/56 (69) 94 02/10/19 07:44 99 02/10/19 07:09 100 Mechanical Ventilator 30 02/10/19 07:05 98 24 100 Mechanical Ventilator 30 94 28 30 02/10/19 05:32 96 20 30 02/10/19 04:00 Mechanical Ventilator 02/10/19 04:00 30 02/10/19 04:00 99.9 99 14 127/62 (83) 100 02/10/19 03:38 97 02/10/19 03:14 99 18 100 Mechanical Ventilator 30 99 18 30 02/10/19 01:25 89 14 30 02/10/19 00:00 98.4 90 18 120/61 (80) 99 02/10/19 00:00 30 02/10/19 00:00 Mechanical Ventilator 02/09/19 23:34 91 18 100 Mechanical Ventilator 30 92 18 30 02/09/19 23:31 89 02/09/19 21:36 91 20 30 02/09/19 20:08 101 136/70 02/09/19 20:00 Mechanical Ventilator 02/09/19 20:00 98.2 101 16 136/70 (92) 100 02/09/19 20:00 30 02/09/19 19:11 95 25 100 Mechanical Ventilator 30 95 26 30 02/09/19 19:08 100 Mechanical Ventilator 30 02/09/19 19:05 91 02/09/19 17:00 87 14 30 02/09/19 16:00 87 02/09/19 16:00 30 02/09/19 16:00 Mechanical Ventilator 02/09/19 16:00 98.6 87 16 125/71 (89) 100 Intake and Output 02/09/19 02/10/19 19:00 07:00 Intake Total 1650 ml 1122.5 ml Output Total 850 ml 700 ml Balance 800 ml 422.5 ml Free Water 150 ml 100 ml IV Total 1300 ml 782.5 ml Tube Feeding 200 ml 240 ml Output Urine Total 850 ml 700 ml # Voids 1 # Bowel Movements 2 Laboratory Tests 02/10/19 04:09: White Blood Count 11.1H, Red Blood Count 3.32L, Hemoglobin 8.9L, Hematocrit 28.2L, Mean Corpuscular Volume 85, Mean Corpuscular Hemoglobin 26.7L, Mean Corpuscular Hemoglobin Concent 31.4L, Red Cell Distribution Width 16.3H, Platelet Count 306, Mean Platelet Volume 5.0L, Neutrophils (%) (Auto) 61.6, Lymphocytes (%) (Auto) 26.2, Monocytes (%) (Auto) 5.4, Eosinophils (%) (Auto) 6.2H, Basophils (%) (Auto) 0.6, Sodium Level 137, Potassium Level 3.9, Chloride Level 106, Carbon Dioxide Level 25, Anion Gap 6, Blood Urea Nitrogen 11, Creatinine 1.8H, Estimat Glomerular Filtration Rate , Glucose Level 93, Calcium Level 8.6, Phosphorus Level 3.8, Magnesium Level 1.7L, Total Bilirubin 0.5, Aspartate Amino Transf (AST/SGOT) 71H, Alanine Aminotransferase (ALT/SGPT) 58, Alkaline Phosphatase 407H, C-Reactive Protein, Quantitative 18.7H, Pro-B-Type Natriuretic Peptide 562H, Total Protein 7.6, Albumin 2.0L, Globulin 5.6, Albumin /Globulin Ratio 0.4L Height (Feet): 5 Height (Inches): 5.00 Weight (Pounds): 180 Objective General Appearance: WD/WN, confused Neck: supple Cardiovascular: normal rate, regular rhythm Respiratory/Chest: chest wall non-tender, rhonchi - bilaterally Abdomen: normal bowel sounds, non tender, soft, no organomegaly Edema: no edema noted Arm (L), no edema noted Arm (R), no edema noted Leg (L), no edema noted Leg (R), no edema noted Pedal (L), no edema noted Pedal (R), no edema noted Generalized Neurologic: disoriented, unresponsive, aphasia Irvin Beltrán MD Feb 10, 2019 15:25
[2019-02-10 16:00] VITALS: BP 117/57
--- NOTE | 2019-02-10 17:16 | NUR ---
RESPIRATORY NOTE: Trach care done, dressing changed. Pt vomitted again. Suspected pt aspirated. Tracheal suctioned large amounts of thick and thin milky yellow secretions (like tube feeding color) Casimiro David made aware.
--- NOTE | 2019-02-10 18:30 | NUR ---
HAND-OFF: Report given to Regina Martinez RN.
--- NOTE | 2019-02-10 19:15 | NUR ---
RESPIRATORY NOTE:RESPIRATORY NOTE: Received patient on vent settings of AC RR:14, Vt:450, FiO2: 30%, Peep of 5. patient is trach with a shileyxlt 6 secured with trach ties. Alarms are audible. suctioned large thick white secretions. Will continue to monitor throughout the day.
--- NOTE | 2019-02-10 19:29 | NUR ---
NURSE NOTES: Received patient from Joann PAEZ. Patient is obtunded, receiving oxygen via trach to vent: Shiley 6, AC 14, TV 450, FiO2 35%, PEEP 5. G-tube is patent and receiving Glucerna 1.5 @20cc/hr. IV site is Right Forearm 22g receiving D5NS at 75cc/hr. Bed is locked, placed in lowest position, side rails up x3, bed alarm on, head of bed elevated, call light within reach. Will continue to monitor.
[2019-02-10 20:00] VITALS: BP 126/57
[2019-02-10] MEDS: Dyna-Hex 2% Top Sol 2oz TOPIC SCH (20:00)
--- NOTE | 2019-02-10 21:35 | General Progress Note ---
Assessment/Plan Status: stable, progressing Assessment/Plan: Assessment - N/V- resolved - Anemia with OB (-) stools - Resp failure, s/p Trach - dysphagia, s/p PEG - OBS Recommendations - laxative PRN - continue TF - PPI - Elevate HOB Subjective Allergies: Coded Allergies: CODEINE (Verified Allergy, Unknown, HIVES, 09/15/09) Subjective above noted NAD tolerating feeds Objective Last 24 Hour Vital Signs Date Time Temp Pulse Resp B/P (MAP) Pulse Ox O2 Delivery O2 Flow Rate FiO2 02/10/19 21:24 88 19 30 02/10/19 20:05 89 126/57 02/10/19 19:13 100 Mechanical Ventilator 30 02/10/19 19:13 91 16 30 02/10/19 17:16 84 14 30 02/10/19 16:00 Mechanical Ventilator 02/10/19 16:00 94 02/10/19 16:00 98.2 96 15 117/57 (77) 100 02/10/19 16:00 30 02/10/19 14:58 89 15 100 Mechanical Ventilator 30 92 14 30 02/10/19 13:14 86 14 30 02/10/19 12:00 30 02/10/19 12:00 Mechanical Ventilator 02/10/19 12:00 99.0 94 14 116/56 (76) 100 02/10/19 11:27 96 02/10/19 10:49 94 14 100 Mechanical Ventilator 30 94 14 30 02/10/19 08:57 103 94/56 02/10/19 08:50 103 18 30 02/10/19 08:00 Mechanical Ventilator 02/10/19 08:00 30 02/10/19 08:00 98.8 105 23 94/56 (69) 94 02/10/19 07:44 99 02/10/19 07:09 100 Mechanical Ventilator 30 02/10/19 07:05 98 24 100 Mechanical Ventilator 30 94 28 30 02/10/19 05:32 96 20 30 02/10/19 04:00 Mechanical Ventilator 02/10/19 04:00 30 02/10/19 04:00 99.9 99 14 127/62 (83) 100 02/10/19 03:38 97 02/10/19 03:14 99 18 100 Mechanical Ventilator 30 99 18 30 02/10/19 01:25 89 14 30 02/10/19 00:00 98.4 90 18 120/61 (80) 99 02/10/19 00:00 30 02/10/19 00:00 Mechanical Ventilator 02/09/19 23:34 91 18 100 Mechanical Ventilator 30 92 18 30 02/09/19 23:31 89 02/09/19 21:36 91 20 30 Intake and Output 02/09/19 02/10/19 19:00 07:00 Intake Total 1650 ml 1122.5 ml Output Total 850 ml 700 ml Balance 800 ml 422.5 ml Free Water 150 ml 100 ml IV Total 1300 ml 782.5 ml Tube Feeding 200 ml 240 ml Output Urine Total 850 ml 700 ml # Voids 1 # Bowel Movements 2 Laboratory Tests 02/10/19 04:09: White Blood Count 11.1H, Red Blood Count 3.32L, Hemoglobin 8.9L, Hematocrit 28.2L, Mean Corpuscular Volume 85, Mean Corpuscular Hemoglobin 26.7L, Mean Corpuscular Hemoglobin Concent 31.4L, Red Cell Distribution Width 16.3H, Platelet Count 306, Mean Platelet Volume 5.0L, Neutrophils (%) (Auto) 61.6, Lymphocytes (%) (Auto) 26.2, Monocytes (%) (Auto) 5.4, Eosinophils (%) (Auto) 6.2H, Basophils (%) (Auto) 0.6, Sodium Level 137, Potassium Level 3.9, Chloride Level 106, Carbon Dioxide Level 25, Anion Gap 6, Blood Urea Nitrogen 11, Creatinine 1.8H, Estimat Glomerular Filtration Rate , Glucose Level 93, Calcium Level 8.6, Phosphorus Level 3.8, Magnesium Level 1.7L, Total Bilirubin 0.5, Aspartate Amino Transf (AST/SGOT) 71H, Alanine Aminotransferase (ALT/SGPT) 58, Alkaline Phosphatase 407H, C-Reactive Protein, Quantitative 18.7H, Pro-B-Type Natriuretic Peptide 562H, Total Protein 7.6, Albumin 2.0L, Globulin 5.6, Albumin /Globulin Ratio 0.4L Height (Feet): 5 Height (Inches): 5.00 Weight (Pounds): 180 Objective Debilitated AA woman NCAT (+) trach coarse ronchi RR obese abd Celio Vaughan MD Feb 10, 2019 21:35
--- NOTE | 2019-02-10 22:34 | NUR ---
NURSE NOTES: Turned and repositioned patient, oral care given. Patient tolerated well, no signs of distress. Will continue to monitor.
[2019-02-11] VITALS: BP 132/58
[2019-02-11] MEDS: Albuterol/Ipratropium 3ml neb HHN PRN ×4 (02:49→15:14)
[2019-02-11 04:00] VITALS: BP 109/64
[2019-02-11 04:50] LABS: ALANINE AMINOTRANSFERASE 52 U/L (12-78); ALBUMIN 1.8 G/DL (3.4-5.0); ALBUMIN/GLOBULIN RATIO 0.4 (1.0-2.7); ALKALINE PHOSPHATASE 391 U/L (46-116); ANION GAP 10 mmol/L (5-15); ASPARTATE AMINO TRANSFERASE 63 U/L (15-37); BILIRUBIN,TOTAL 0.4 MG/DL (0.2-1.0); BLOOD UREA NITROGEN 12 mg/dL (7-18); CALCIUM 8.5 MG/DL (8.5-10.1); CARBON DIOXIDE 23 MMOL/L (21-32); CHLORIDE 108 MMOL/L (98-107); CREATININE 1.8 MG/DL (0.55-1.30); POTASSIUM 3.5 MMOL/L (3.5-5.1); SODIUM 141 MMOL/L (136-145)
--- NOTE | 2019-02-11 06:45 | Progress Note ---
DATE: 02/10/2019 CARDIOLOGY PROGRESS NOTE SUBJECTIVE: Condition largely unchanged. No vomiting. On IV fluids. Tolerating low rate of feedings due to residuals. Remains on antimicrobials. Full ventilator support. Monitor, sinus rhythm. OBJECTIVE: VITAL SIGNS: Blood pressure 116/56, pulse 94, respirations 14, and temperature 99.9 max. LUNGS: Bilateral breath sounds. Rhonchi. Thin secretions, moderate quantity. CARDIAC: Regular rhythm and rate. Normal S1, S2. ABDOMEN: Soft. EXTREMITIES: Trace edema. LABORATORY DATA: Natriuretic peptide 562. Creatinine 1.8, BUN 11, potassium 3.9. Hemoglobin 8.9, white count 11.1. IMPRESSION: 1. Sepsis. 2. Respiratory failure. 3. Recovered shock. 4. Acute on chronic renal failure. 5. Acute on chronic diastolic congestive heart failure. 6. Advanced dementia. PLAN: 1. Continue current medication regimen. 2. No diuretics yet monitoring renal function. 3. Medication regimen reviewed and reconciled. 4. Discussed with consultants in detail. 5. Remains serious condition with poor prognosis and high risk for deterioration due to comorbidities. Bg Hagen M.D. DR: IOANA JOB#: [id number] CC:
--- NOTE | 2019-02-11 07:00 | NUR ---
RESPIRATORY NOTES: Received Patient on Vent settings ACVC RR 14, VT 450, Fio2 30% PEEP +5. Patient is tracheostomy dependent with a Shiley 6, secured by trache ties. Bilateral rhonchi heard throughout both lung man. Suctioned a moderate amount of yellow boles and white thick secretions. Patient lying in bed obtundent. Vent plugged into red outlet. Alarms are on and audible. Will continue to monitor patient throughout the day.
--- NOTE | 2019-02-11 07:29 | NUR ---
HAND-OFF: Report given to Jovani PAEZ.
[2019-02-11 08:00] VITALS: BP 139/75
[2019-02-11] MEDS: D5NS 1,000 ML IV SCH ×2 (09:29→20:45)
[2019-02-11] MEDS: Pantoprazole Inj IVP SCH ×2 (10:01→20:34)
[2019-02-11] MEDS: Docusate 100mg/10ml Liq GT SCH ×3 (10:02→17:49)
[2019-02-11] MEDS: Ascorbic Acid 500mg tab GT SCH (10:07)
[2019-02-11] MEDS: levETIRAcetam 500mg/5ml Liquid GT SCH ×2 (10:07→20:34)
[2019-02-11] MEDS: Heparin 5000 units/ml inj SUBQ SCH ×2 (10:12→20:35)
[2019-02-11] MEDS: Piperacillin/Tazobactam 3.375 GM in NS 110 ML IVPB SCH (10:26)
--- NOTE | 2019-02-11 10:58 | Infectious Diseases Prog Note ---
Assessment/Plan Assessment/Plan antibiotics : zosyn A 1. UTI with proteus 2. respiratory failure 3. hypertension 4. CVA 5. dementia 6. sacral decubitus ulcer 7. rectal VRE colonization 8. leucocytosis improving 9. renal failure P 1. d/c zosyn 2. start and continue ceftriaxone 5 more days 3. will follow up cultures Subjective ROS Limited/Unobtainable: Yes Gastrointestinal/Abdominal: Reports: vomiting Allergies: Coded Allergies: CODEINE (Verified Allergy, Unknown, HIVES, 09/15/09) Objective Vital Signs Last 24 Hour Vital Signs Date Time Temp Pulse Resp B/P (MAP) Pulse Ox O2 Delivery O2 Flow Rate FiO2 02/11/19 10:30 81 14 100 Mechanical Ventilator 30 84 14 30 02/11/19 10:06 91 139/75 02/11/19 09:08 92 25 30 02/11/19 07:28 85 02/11/19 07:03 80 14 100 Mechanical Ventilator 30 79 14 30 02/11/19 07:03 100 Mechanical Ventilator 30 02/11/19 05:15 94 25 Mechanical Ventilator 30 02/11/19 04:11 82 02/11/19 04:00 30 02/11/19 04:00 98.1 84 14 109/64 (79) 100 02/11/19 04:00 Mechanical Ventilator 02/11/19 02:53 93 20 100 Mechanical Ventilator 30 94 22 30 02/11/19 00:56 81 14 30 02/11/19 00:03 90 02/11/19 00:00 98.2 88 16 132/58 (82) 100 02/11/19 00:00 Mechanical Ventilator 02/11/19 00:00 30 02/10/19 23:16 83 14 100 Mechanical Ventilator 30 85 16 30 02/10/19 21:24 88 19 30 02/10/19 20:05 89 126/57 02/10/19 20:00 30 02/10/19 20:00 Mechanical Ventilator 02/10/19 20:00 98.2 84 16 126/57 (80) 100 02/10/19 19:50 93 02/10/19 19:13 100 Mechanical Ventilator 30 02/10/19 19:13 91 16 100 Mechanical Ventilator 30 91 16 30 02/10/19 17:16 84 14 30 02/10/19 16:00 Mechanical Ventilator 02/10/19 16:00 94 02/10/19 16:00 98.2 96 15 117/57 (77) 100 02/10/19 16:00 30 02/10/19 14:58 89 15 100 Mechanical Ventilator 30 92 14 30 02/10/19 13:14 86 14 30 02/10/19 12:00 30 02/10/19 12:00 Mechanical Ventilator 02/10/19 12:00 99.0 94 14 116/56 (76) 100 02/10/19 11:27 96 Height (Feet): 5 Height (Inches): 5.00 Weight (Pounds): 180 HEENT: status post trach Respiratory/Chest: lungs clear Cardiovascular: normal rate, regular rhythm, no gallop/murmur Abdomen: soft, non tender, other - GT Extremities: other - left arm edema Microbiology Date/Time Source Procedure Growth Status 02/09/19 14:05 Indwelling Cath Urine Culture - Final Proteus Mirabilis Complete Laboratory Tests Test 02/11/19 03:15 Sodium Level 141 MMOL/L (136-145) Potassium Level 3.5 MMOL/L (3.5-5.1) Chloride Level 108 MMOL/L (98-107) H Carbon Dioxide Level 23 MMOL/L (21-32) Anion Gap 10 mmol/L (5-15) Blood Urea Nitrogen 12 mg/dL (7-18) Creatinine 1.8 MG/DL (0.55-1.30) H Estimat Glomerular Filtration Rate mL/min (>60) Glucose Level 94 MG/DL (74-106) Calcium Level 8.5 MG/DL (8.5-10.1) Total Bilirubin 0.4 MG/DL (0.2-1.0) Aspartate Amino Transf (AST/SGOT) 63 U/L (15-37) H Alanine Aminotransferase (ALT/SGPT) 52 U/L (12-78) Alkaline Phosphatase 391 U/L (46-116) H Total Protein 6.9 G/DL (6.4-8.2) Albumin 1.8 G/DL (3.4-5.0) L Globulin 5.1 g/dL Albumin/Globulin Ratio 0.4 (1.0-2.7) L Current Medications Medications (Trade) Dose Ordered Sig/Maicol Route PRN Reason Start Time Stop Time Status Last Admin Dose Admin Acetaminophen (Tylenol) 650 mg Q4H PRN GT Mild Pain/Temp > 100.5 02/03/19 19:30 03/05/19 19:29 02/07/19 00:13 Acetylcysteine (Mucomyst) 100 mg Q4HRT HHN 02/01/19 15:00 03/03/19 12:59 02/11/19 10:30 Albuterol/ Ipratropium (Albuterol/ Ipratropium) 3 ml Q4H PRN HHN Shortness of Breath 02/07/19 15:00 02/12/19 14:59 02/11/19 10:30 Ascorbic Acid (Vitamin C) 250 mg DAILY GT 02/09/19 09:00 02/24/19 08:59 02/11/19 10:07 Atropine Sulfate (Atropine Opth Adriana) 1 drop TID SL 02/10/19 09:30 03/12/19 09:29 02/11/19 09:27 Bisacodyl (Dulcolax) 10 mg PRN PRN RECTAL Constipation 01/24/19 05:30 02/23/19 05:29 Chlorhexidine Gluconate (Cesilia-Hex 2%) 1 applic DAILY@2000 TOPIC 02/10/19 20:00 03/12/19 19:59 Dextrose/Sodium Chloride 1,000 ml @ 75 mls/hr [id number] IV 02/06/19 07:45 03/08/19 07:44 02/11/19 09:29 Docusate Sodium (Colace) 100 mg TID GT 02/08/19 18:00 02/23/19 05:29 02/11/19 10:02 Heparin Sodium (Porcine) (Heparin 5000 units/ml) 5,000 units EVERY 12 HOURS SUBQ 01/24/19 09:00 02/23/19 08:59 02/11/19 10:12 Heparin Sodium/ Sodium Chloride (Heparin 1000 units/500ml Premix) 1,000 unit ONCE PRN IV PICC PLACEMENT 02/10/19 06:30 02/11/19 23:59 Hydralazine HCl (Apresoline) 25 mg Q4H PRN GT SBP above 160 02/08/19 15:15 03/09/19 16:29 Levetiracetam (Keppra) 750 mg Q12HR GT 01/28/19 21:00 02/23/19 08:59 02/11/19 10:07 Lidocaine HCl (Xylocaine 1% 30ml) 30 ml ONCE PRN INJ PICC PLACEMENT 02/10/19 06:30 02/11/19 23:59 Metoclopramide HCl (Reglan) 10 mg Q6H PRN IVP Nausea & Vomiting 02/07/19 09:00 03/09/19 08:59 Metoprolol Tartrate (Lopressor) 25 mg Q12HR GT 02/07/19 01:45 03/09/19 01:44 02/11/19 10:06 Ondansetron HCl (Zofran) 4 mg Q6H PRN GT Nausea & Vomiting 01/24/19 05:30 02/23/19 05:29 02/06/19 10:30 Pantoprazole (Protonix) 40 mg Q12HR IVP 02/08/19 21:00 03/06/19 08:59 02/11/19 10:01 Piperacillin Sod/ Tazobactam Sod 3.375 gm/Sodium Chloride 110 ml @ 27.5 mls/hr EVERY 12 HOURS IVPB 02/10/19 13:00 02/15/19 12:59 02/11/19 10:26 Geovany Yang MD Feb 11, 2019 10:58
[2019-02-11 12:00] VITALS: BP 138/68
--- NOTE | 2019-02-11 12:55 | Nephrology Progress Note ---
Assessment/Plan Problem List: (1) Acute renal failure (ARF) Assessment: Cr 1.8 stable (2) Chronic respiratory failure (3) Anemia (4) Sepsis Assessment Acute renal failure Respiratory failure - Trach Low Mag- Low k , Low Na Anemia UTI / Sepsis Proteinuria / HypoAlbuminemia high Trigs Sz decubs bed bound DNR Plan K supplement Hydrate Urine studies avoid Nephrotoxics mag K Phos supplements as needed monitor renal parameters Subjective ROS Limited/Unobtainable: Yes Objective Objective Last 24 Hour Vital Signs Date Time Temp Pulse Resp B/P (MAP) Pulse Ox O2 Delivery O2 Flow Rate FiO2 02/11/19 10:30 81 14 100 Mechanical Ventilator 30 84 14 30 02/11/19 10:06 91 139/75 02/11/19 09:08 92 25 30 02/11/19 07:28 85 02/11/19 07:03 80 14 100 Mechanical Ventilator 30 79 14 30 02/11/19 07:03 100 Mechanical Ventilator 30 02/11/19 05:15 94 25 Mechanical Ventilator 30 02/11/19 04:11 82 02/11/19 04:00 30 02/11/19 04:00 98.1 84 14 109/64 (79) 100 02/11/19 04:00 Mechanical Ventilator 02/11/19 02:53 93 20 100 Mechanical Ventilator 30 94 22 30 02/11/19 00:56 81 14 30 02/11/19 00:03 90 02/11/19 00:00 98.2 88 16 132/58 (82) 100 02/11/19 00:00 Mechanical Ventilator 02/11/19 00:00 30 02/10/19 23:16 83 14 100 Mechanical Ventilator 30 85 16 30 02/10/19 21:24 88 19 30 02/10/19 20:05 89 126/57 02/10/19 20:00 30 02/10/19 20:00 Mechanical Ventilator 02/10/19 20:00 98.2 84 16 126/57 (80) 100 02/10/19 19:50 93 02/10/19 19:13 100 Mechanical Ventilator 30 02/10/19 19:13 91 16 100 Mechanical Ventilator 30 91 16 30 02/10/19 17:16 84 14 30 02/10/19 16:00 Mechanical Ventilator 02/10/19 16:00 94 02/10/19 16:00 98.2 96 15 117/57 (77) 100 02/10/19 16:00 30 02/10/19 14:58 89 15 100 Mechanical Ventilator 30 92 14 30 02/10/19 13:14 86 14 30 Intake and Output 02/10/19 02/11/19 19:00 07:00 Intake Total 1372.542 ml 1144.29 ml Output Total 750 ml 300 ml Balance 622.542 ml 844.29 ml IV Total 952.542 ml 904.29 ml Tube Feeding 240 ml 240 ml Other 180 ml Output Urine Total 750 ml 300 ml # Bowel Movements 2 Laboratory Tests 02/11/19 03:15: Sodium Level 141, Potassium Level 3.5, Chloride Level 108H, Carbon Dioxide Level 23, Anion Gap 10, Blood Urea Nitrogen 12, Creatinine 1.8H, Estimat Glomerular Filtration Rate , Glucose Level 94, Calcium Level 8.5, Total Bilirubin 0.4, Aspartate Amino Transf (AST/SGOT) 63H, Alanine Aminotransferase ( ALT/SGPT) 52, Alkaline Phosphatase 391H, Total Protein 6.9, Albumin 1.8L, Globulin 5.1, Albumin/Globulin Ratio 0.4L Height (Feet): 5 Height (Inches): 5.00 Weight (Pounds): 180 General Appearance: no apparent distress EENT: other - trach Cardiovascular: tachycardia Respiratory/Chest: decreased breath sounds Abdomen: distended Eric Cortez MD Feb 11, 2019 12:55
--- NOTE | 2019-02-11 13:15 | NUR ---
NURSE NOTES: BLADDER SCAN DONE PER M.D ORDERS ,RESIDUAL 43ML ,M.D FAULODIAN MADE AWARE & NOTIFIED.NO NEW ORDERS NOTED AT THIS TIME . WILL CONT TO MONITOR.
--- NOTE | 2019-02-11 14:18 | Pulmonology Progress Note ---
Assessment/Plan Assessment/Plan Pulmonary Progress Note HPI This an 83-year-old female with history of tracheostomy, VDRF, feeding tube, admitted with Pneumonia, respiratory distress. Past Medical History: VDRF, Trach, G tube, Hypertension, Cardiac disease, Dementia, Previous CVA, TIA, Seizure disorder, previous cancer Impression: Sepsis syndrome Pneumonia VDRF, Trach, G tube, Hypertension, Cardiac disease, Dementia, Previous CVA, Seizure disorder, Respiratory failure with hypoxia Anemia Sacral ulcer renal cyst Plan maintain same mucomyst and duoneb SNF meds as is unable to wean at present back on AC Oxygen as needed Monitor labs for change changes noted Patient is a DNR. No CPR. dc planning for subacute care impression, plan, and exam edited and reviewed in detail care discussed with RN Subjective Allergies: Coded Allergies: CODEINE (Verified Allergy, Unknown, HIVES, 09/15/09) Subjective on AC on mucomyst and duoneb noted congestion supportive care noted RT care reviewed overnight care reviewed Objective Vital Signs Noted Objective WDWN NAD contracted on vent reduced breath sounds bilaterally with scattered rhonchi same [id number] without MRG NABS nontender no HSM no CC minimal nonfocal nonverbal trach and gt reviewed and edited Microbiology Date/Time Source Procedure Growth Status 02/07/19 09:20 Sputum Gram Stain - Final Resulted 02/07/19 09:20 Sputum Culture - Preliminary Klebsiella Pneumoniae Providencia Stuartii Resulted 02/09/19 14:05 Indwelling Cath Urine Culture - Preliminary Gram Negative Bacillus 1 Resulted Laboratory Tests Noted 02/09/19 14:05: Urine Eosinophils None seen 02/10/19 04:09: White Blood Count 11.1H, Red Blood Count 3.32L, Hemoglobin 8.9L, Hematocrit 28.2L, Mean Corpuscular Volume 85, Mean Corpuscular Hemoglobin 26.7L, Mean Corpuscular Hemoglobin Concent 31.4L, Red Cell Distribution Width 16.3H, Platelet Count 306, Mean Platelet Volume 5.0L, Neutrophils (%) (Auto) 61.6, Lymphocytes (%) (Auto) 26.2, Monocytes (%) (Auto) 5.4, Eosinophils (%) (Auto) 6.2H, Basophils (%) (Auto) 0.6, Sodium Level 137, Potassium Level 3.9, Chloride Level 106, Carbon Dioxide Level 25, Anion Gap 6, Blood Urea Nitrogen 11, Creatinine 1.8H, Estimat Glomerular Filtration Rate , Glucose Level 93, Calcium Level 8.6, Phosphorus Level 3.8, Magnesium Level 1.7L, Total Bilirubin 0.5, Aspartate Amino Transf (AST/SGOT) 71H, Alanine Aminotransferase (ALT/SGPT) 58, Alkaline Phosphatase 407H, C-Reactive Protein, Quantitative 18.7H, Pro-B-Type Natriuretic Peptide 562H, Total Protein 7.6, Albumin 2.0L, Globulin 5.6, Albumin /Globulin Ratio 0.4L Current Medications Medications (Trade) Dose Ordered Sig/Maicol Route PRN Reason Start Time Stop Time Status Last Admin Dose Admin Acetaminophen (Tylenol) 650 mg Q4H PRN GT Mild Pain/Temp > 100.5 02/03/19 19:30 03/05/19 19:29 02/07/19 00:13 Acetylcysteine (Mucomyst) 100 mg Q4HRT HHN 02/01/19 15:00 03/03/19 12:59 02/10/19 07:11 Albuterol/ Ipratropium (Albuterol/ Ipratropium) 3 ml Q4H PRN HHN Shortness of Breath 02/07/19 15:00 02/12/19 14:59 02/10/19 07:11 Ascorbic Acid (Vitamin C) 250 mg DAILY GT 02/09/19 09:00 02/24/19 08:59 02/09/19 08:37 Atropine Sulfate (Atropine Opth Adriana) 1 drop TID SL 02/10/19 09:30 03/12/19 09:29 Bisacodyl (Dulcolax) 10 mg PRN PRN RECTAL Constipation 01/24/19 05:30 02/23/19 05:29 Chlorhexidine Gluconate (Cesilia-Hex 2%) 1 applic DAILY@2000 TOPIC 02/10/19 20:00 03/12/19 19:59 Dextrose/Sodium Chloride 1,000 ml @ 75 mls/hr [id number] IV 02/06/19 07:45 03/08/19 07:44 02/10/19 01:32 Docusate Sodium (Colace) 100 mg TID GT 02/08/19 18:00 02/23/19 05:29 02/09/19 18:02 Heparin Sodium (Porcine) (Heparin 5000 units/ml) 5,000 units EVERY 12 HOURS SUBQ 01/24/19 09:00 02/23/19 08:59 02/09/19 20:09 Heparin Sodium/ Sodium Chloride (Heparin 1000 units/500ml Premix) 1,000 unit ONCE PRN IV PICC PLACEMENT 02/10/19 06:30 02/11/19 23:59 Hydralazine HCl (Apresoline) 25 mg Q4H PRN GT SBP above 160 02/08/19 15:15 03/09/19 16:29 Levetiracetam (Keppra) 750 mg Q12HR GT 01/28/19 21:00 02/23/19 08:59 02/09/19 20:08 Lidocaine HCl (Xylocaine 1% 30ml) 30 ml ONCE PRN INJ PICC PLACEMENT 02/10/19 06:30 02/11/19 23:59 Magnesium Sulfate 100 ml @ 100 mls/hr Q1H IVPB 02/10/19 09:00 02/10/19 10:59 Metoclopramide HCl (Reglan) 10 mg Q6H PRN IVP Nausea & Vomiting 02/07/19 09:00 03/09/19 08:59 Metoprolol Tartrate (Lopressor) 25 mg Q12HR GT 02/07/19 01:45 03/09/19 01:44 02/09/19 20:08 Ondansetron HCl (Zofran) 4 mg Q6H PRN GT Nausea & Vomiting 01/24/19 05:30 02/23/19 05:29 02/06/19 10:30 Pantoprazole (Protonix) 40 mg Q12HR IVP 02/08/19 21:00 03/06/19 08:59 02/09/19 20:08 Subjective ROS Limited/Unobtainable: No Allergies: Coded Allergies: CODEINE (Verified Allergy, Unknown, HIVES, 09/15/09) Objective Last 24 Hour Vital Signs Date Time Temp Pulse Resp B/P (MAP) Pulse Ox O2 Delivery O2 Flow Rate FiO2 02/11/19 12:41 81 14 30 02/11/19 10:30 81 14 100 Mechanical Ventilator 30 84 14 30 02/11/19 10:06 91 139/75 02/11/19 09:08 92 25 30 02/11/19 07:28 85 02/11/19 07:03 80 14 100 Mechanical Ventilator 30 79 14 30 02/11/19 07:03 100 Mechanical Ventilator 30 02/11/19 05:15 94 25 Mechanical Ventilator 30 02/11/19 04:11 82 02/11/19 04:00 30 02/11/19 04:00 98.1 84 14 109/64 (79) 100 02/11/19 04:00 Mechanical Ventilator 02/11/19 02:53 93 20 100 Mechanical Ventilator 30 94 22 30 02/11/19 00:56 81 14 30 02/11/19 00:03 90 02/11/19 00:00 98.2 88 16 132/58 (82) 100 02/11/19 00:00 Mechanical Ventilator 02/11/19 00:00 30 02/10/19 23:16 83 14 100 Mechanical Ventilator 30 85 16 30 02/10/19 21:24 88 19 30 02/10/19 20:05 89 126/57 02/10/19 20:00 30 02/10/19 20:00 Mechanical Ventilator 02/10/19 20:00 98.2 84 16 126/57 (80) 100 02/10/19 19:50 93 02/10/19 19:13 100 Mechanical Ventilator 30 02/10/19 19:13 91 16 100 Mechanical Ventilator 30 91 16 30 02/10/19 17:16 84 14 30 02/10/19 16:00 Mechanical Ventilator 02/10/19 16:00 94 02/10/19 16:00 98.2 96 15 117/57 (77) 100 02/10/19 16:00 30 02/10/19 14:58 89 15 100 Mechanical Ventilator 30 92 14 30 Intake and Output 02/10/19 02/11/19 19:00 07:00 Intake Total 1372.542 ml 1144.29 ml Output Total 750 ml 300 ml Balance 622.542 ml 844.29 ml IV Total 952.542 ml 904.29 ml Tube Feeding 240 ml 240 ml Other 180 ml Output Urine Total 750 ml 300 ml # Bowel Movements 2 Microbiology Date/Time Source Procedure Growth Status 02/09/19 14:05 Indwelling Cath Urine Culture - Final Proteus Mirabilis Complete Laboratory Tests 02/11/19 03:15: Sodium Level 141, Potassium Level 3.5, Chloride Level 108H, Carbon Dioxide Level 23, Anion Gap 10, Blood Urea Nitrogen 12, Creatinine 1.8H, Estimat Glomerular Filtration Rate , Glucose Level 94, Calcium Level 8.5, Total Bilirubin 0.4, Aspartate Amino Transf (AST/SGOT) 63H, Alanine Aminotransferase ( ALT/SGPT) 52, Alkaline Phosphatase 391H, Total Protein 6.9, Albumin 1.8L, Globulin 5.1, Albumin/Globulin Ratio 0.4L Current Medications Medications (Trade) Dose Ordered Sig/Maicol Route PRN Reason Start Time Stop Time Status Last Admin Dose Admin Acetaminophen (Tylenol) 650 mg Q4H PRN GT Mild Pain/Temp > 100.5 02/03/19 19:30 03/05/19 19:29 02/07/19 00:13 Acetylcysteine (Mucomyst) 100 mg Q4HRT HHN 02/01/19 15:00 03/03/19 12:59 02/11/19 10:30 Albuterol/ Ipratropium (Albuterol/ Ipratropium) 3 ml Q4H PRN HHN Shortness of Breath 02/07/19 15:00 02/12/19 14:59 02/11/19 10:30 Ascorbic Acid (Vitamin C) 250 mg DAILY GT 02/09/19 09:00 02/24/19 08:59 02/11/19 10:07 Atropine Sulfate (Atropine Opth Adriana) 1 drop TID SL 02/10/19 09:30 03/12/19 09:29 02/11/19 09:27 Bisacodyl (Dulcolax) 10 mg PRN PRN RECTAL Constipation 01/24/19 05:30 02/23/19 05:29 Ceftriaxone Sodium 1 gm/ Dextrose 55 ml @ 110 mls/hr Q24H IVPB 02/11/19 14:00 02/18/19 13:59 Chlorhexidine Gluconate (Cesilia-Hex 2%) 1 applic DAILY@2000 TOPIC 02/10/19 20:00 03/12/19 19:59 Dextrose/Sodium Chloride 1,000 ml @ 75 mls/hr [id number] IV 02/06/19 07:45 03/08/19 07:44 02/11/19 09:29 Docusate Sodium (Colace) 100 mg TID GT 02/08/19 18:00 02/23/19 05:29 02/11/19 10:02 Heparin Sodium (Porcine) (Heparin 5000 units/ml) 5,000 units EVERY 12 HOURS SUBQ 01/24/19 09:00 02/23/19 08:59 02/11/19 10:12 Heparin Sodium/ Sodium Chloride (Heparin 1000 units/500ml Premix) 1,000 unit ONCE PRN IV PICC PLACEMENT 02/10/19 06:30 02/11/19 23:59 Hydralazine HCl (Apresoline) 25 mg Q4H PRN GT SBP above 160 02/08/19 15:15 03/09/19 16:29 Levetiracetam (Keppra) 750 mg Q12HR GT 01/28/19 21:00 02/23/19 08:59 02/11/19 10:07 Lidocaine HCl (Xylocaine 1% 30ml) 30 ml ONCE PRN INJ PICC PLACEMENT 02/10/19 06:30 02/11/19 23:59 Metoclopramide HCl (Reglan) 10 mg Q6H PRN IVP Nausea & Vomiting 02/07/19 09:00 03/09/19 08:59 Metoprolol Tartrate (Lopressor) 25 mg Q12HR GT 02/07/19 01:45 03/09/19 01:44 02/11/19 10:06 Ondansetron HCl (Zofran) 4 mg Q6H PRN GT Nausea & Vomiting 01/24/19 05:30 02/23/19 05:29 02/06/19 10:30 Pantoprazole (Protonix) 40 mg Q12HR IVP 02/08/19 21:00 03/06/19 08:59 02/11/19 10:01 Bg Moffett MD Feb 11, 2019 14:18
[2019-02-11] MEDS: cefTRIAXone 1 GM in D5W 55 ML IVPB SCH (14:42)
--- NOTE | 2019-02-11 15:38 | General Progress Note ---
Assessment/Plan Problem List: (1) Seizure ICD Codes: R56.9 - Unspecified convulsions SNOMED: 96854135 (2) Anemia ICD Codes: D64.9 - Anemia, unspecified SNOMED: 621400235 Qualifiers: Qualified Codes: D64.9 - Anemia, unspecified (3) Sepsis ICD Codes: A41.9 - Sepsis, unspecified organism SNOMED: 33735280, 840991097 Qualifiers: Qualified Codes: A41.9 - Sepsis, unspecified organism (4) Respiratory failure with hypoxia ICD Codes: J96.91 - Respiratory failure, unspecified with hypoxia SNOMED: 20533165329389864 Qualifiers: Qualified Codes: J96.21 - Acute and chronic respiratory failure with hypoxia (5) HCAP (healthcare-associated pneumonia) ICD Codes: J18.9 - Pneumonia, unspecified organism SNOMED: 550336498, 846890358 (6) Sacral decubitus ulcer ICD Codes: L89.159 - Pressure ulcer of sacral region, unspecified stage SNOMED: 696519961 (7) HTN (hypertension) ICD Codes: I10 - Essential (primary) hypertension SNOMED: 36285501 (8) Chronic vegetative state ICD Codes: R40.3 - Persistent vegetative state SNOMED: 98225777 (9) Chronic respiratory failure ICD Codes: J96.10 - Chronic respiratory failure, unspecified whether with hypoxia or hypercapnia SNOMED: 48360193 (10) Limited mobility ICD Codes: Z74.09 - Other reduced mobility SNOMED: 3440822 Status: stable, progressing Assessment/Plan: vent prn resp rx suctioning as needed wean per pulm retry feeds GI follow up. ?j tube bowel regime reglan monitor residuals cont keppra for szs iv abx per ID ivf renal eval dc planning on hold Subjective ROS Limited/Unobtainable: Yes Constitutional: Reports: malaise, weakness HEENT: Reports: no symptoms Cardiovascular: Reports: no symptoms Respiratory: Reports: cough, shortness of breath, sputum Gastrointestinal/Abdominal: Reports: vomiting Genitourinary: Reports: no symptoms Neurologic/Psychiatric: Reports: pre-existing deficit, seizure Endocrine: Reports: no symptoms Hematologic/Lymphatic: Reports: anemia Allergies: Coded Allergies: CODEINE (Verified Allergy, Unknown, HIVES, 09/15/09) All Systems: reviewed and negative except above Subjective no events. no vomiting. on ivf. tolerating feeds at low rate but still having some vomiting. on iv abx for uti. on the vent. +secertions. poorly responsive Objective Last 24 Hour Vital Signs Date Time Temp Pulse Resp B/P (MAP) Pulse Ox O2 Delivery O2 Flow Rate FiO2 02/11/19 15:15 89 14 100 Mechanical Ventilator 30 86 14 30 02/11/19 12:41 81 14 30 02/11/19 10:30 81 14 100 Mechanical Ventilator 30 84 14 30 02/11/19 10:06 91 139/75 02/11/19 09:08 92 25 30 02/11/19 07:28 85 02/11/19 07:03 80 14 100 Mechanical Ventilator 30 79 14 30 02/11/19 07:03 100 Mechanical Ventilator 30 02/11/19 05:15 94 25 Mechanical Ventilator 30 02/11/19 04:11 82 02/11/19 04:00 30 02/11/19 04:00 98.1 84 14 109/64 (79) 100 02/11/19 04:00 Mechanical Ventilator 02/11/19 02:53 93 20 100 Mechanical Ventilator 30 94 22 30 02/11/19 00:56 81 14 30 02/11/19 00:03 90 02/11/19 00:00 98.2 88 16 132/58 (82) 100 02/11/19 00:00 Mechanical Ventilator 02/11/19 00:00 30 02/10/19 23:16 83 14 100 Mechanical Ventilator 30 85 16 30 02/10/19 21:24 88 19 30 02/10/19 20:05 89 126/57 02/10/19 20:00 30 02/10/19 20:00 Mechanical Ventilator 02/10/19 20:00 98.2 84 16 126/57 (80) 100 02/10/19 19:50 93 02/10/19 19:13 100 Mechanical Ventilator 30 02/10/19 19:13 91 16 100 Mechanical Ventilator 30 91 16 30 02/10/19 17:16 84 14 30 02/10/19 16:00 Mechanical Ventilator 02/10/19 16:00 94 02/10/19 16:00 98.2 96 15 117/57 (77) 100 02/10/19 16:00 30 Intake and Output 02/10/19 02/11/19 19:00 07:00 Intake Total 1372.542 ml 1144.29 ml Output Total 750 ml 300 ml Balance 622.542 ml 844.29 ml IV Total 952.542 ml 904.29 ml Tube Feeding 240 ml 240 ml Other 180 ml Output Urine Total 750 ml 300 ml # Bowel Movements 2 Laboratory Tests 02/11/19 03:15: Sodium Level 141, Potassium Level 3.5, Chloride Level 108H, Carbon Dioxide Level 23, Anion Gap 10, Blood Urea Nitrogen 12, Creatinine 1.8H, Estimat Glomerular Filtration Rate , Glucose Level 94, Calcium Level 8.5, Total Bilirubin 0.4, Aspartate Amino Transf (AST/SGOT) 63H, Alanine Aminotransferase ( ALT/SGPT) 52, Alkaline Phosphatase 391H, Total Protein 6.9, Albumin 1.8L, Globulin 5.1, Albumin/Globulin Ratio 0.4L Height (Feet): 5 Height (Inches): 5.00 Weight (Pounds): 180 Objective General Appearance: WD/WN, confused Neck: supple Cardiovascular: normal rate, regular rhythm Respiratory/Chest: chest wall non-tender, rhonchi - bilaterally Abdomen: normal bowel sounds, non tender, soft, no organomegaly Edema: no edema noted Arm (L), no edema noted Arm (R), no edema noted Leg (L), no edema noted Leg (R), no edema noted Pedal (L), no edema noted Pedal (R), no edema noted Generalized Neurologic: disoriented, unresponsive, aphasia Irvin Beltrán MD Feb 11, 2019 15:38
--- NOTE | 2019-02-11 15:44 | Surgery Progress Note ---
Surgery Progress Note Subjective Symptoms: improved Objective Last 24 Hour Vital Signs Date Time Temp Pulse Resp B/P (MAP) Pulse Ox O2 Delivery O2 Flow Rate FiO2 02/11/19 15:15 89 14 100 Mechanical Ventilator 30 86 14 30 02/11/19 12:41 81 14 30 02/11/19 10:30 81 14 100 Mechanical Ventilator 30 84 14 30 02/11/19 10:06 91 139/75 02/11/19 09:08 92 25 30 02/11/19 07:28 85 02/11/19 07:03 80 14 100 Mechanical Ventilator 30 79 14 30 02/11/19 07:03 100 Mechanical Ventilator 30 02/11/19 05:15 94 25 Mechanical Ventilator 30 02/11/19 04:11 82 02/11/19 04:00 30 02/11/19 04:00 98.1 84 14 109/64 (79) 100 02/11/19 04:00 Mechanical Ventilator 02/11/19 02:53 93 20 100 Mechanical Ventilator 30 94 22 30 02/11/19 00:56 81 14 30 02/11/19 00:03 90 02/11/19 00:00 98.2 88 16 132/58 (82) 100 02/11/19 00:00 Mechanical Ventilator 02/11/19 00:00 30 02/10/19 23:16 83 14 100 Mechanical Ventilator 30 85 16 30 02/10/19 21:24 88 19 30 02/10/19 20:05 89 126/57 02/10/19 20:00 30 02/10/19 20:00 Mechanical Ventilator 02/10/19 20:00 98.2 84 16 126/57 (80) 100 02/10/19 19:50 93 02/10/19 19:13 100 Mechanical Ventilator 30 02/10/19 19:13 91 16 100 Mechanical Ventilator 30 91 16 30 02/10/19 17:16 84 14 30 02/10/19 16:00 Mechanical Ventilator 02/10/19 16:00 94 02/10/19 16:00 98.2 96 15 117/57 (77) 100 02/10/19 16:00 30 I&O Intake and Output 02/10/19 02/11/19 19:00 07:00 Intake Total 1372.542 ml 1144.29 ml Output Total 750 ml 300 ml Balance 622.542 ml 844.29 ml IV Total 952.542 ml 904.29 ml Tube Feeding 240 ml 240 ml Other 180 ml Output Urine Total 750 ml 300 ml # Bowel Movements 2 Dressing: saturated Wound: other Drains: other Cardiovascular: RSR Respiratory: decreased breath sounds Abdomen: soft, present bowel sounds, non-distended Extremities: no cyanosis Laboratory Tests Test 02/11/19 03:15 Sodium Level 141 MMOL/L (136-145) Potassium Level 3.5 MMOL/L (3.5-5.1) Chloride Level 108 MMOL/L (98-107) H Carbon Dioxide Level 23 MMOL/L (21-32) Anion Gap 10 mmol/L (5-15) Blood Urea Nitrogen 12 mg/dL (7-18) Creatinine 1.8 MG/DL (0.55-1.30) H Estimat Glomerular Filtration Rate mL/min (>60) Glucose Level 94 MG/DL (74-106) Calcium Level 8.5 MG/DL (8.5-10.1) Total Bilirubin 0.4 MG/DL (0.2-1.0) Aspartate Amino Transf (AST/SGOT) 63 U/L (15-37) H Alanine Aminotransferase (ALT/SGPT) 52 U/L (12-78) Alkaline Phosphatase 391 U/L (46-116) H Total Protein 6.9 G/DL (6.4-8.2) Albumin 1.8 G/DL (3.4-5.0) L Globulin 5.1 g/dL Albumin/Globulin Ratio 0.4 (1.0-2.7) L Plan Problems: (1) Sacral decubitus ulcer Assessment & Plan: This is a 83-year-old female with multiple medical committees that is currently admitted for medical care and management and identified to have multiple wounds requiring care. On admission patient noted to have a resolved sacral decubitus ulcer. Has had prior care and is well-healed at this time. Will ensure it does not open up again. Patient has a right ischial decubitus ulcer that is resolved. Scar intact and well formed. Will monitor to ensure it does not open up again. Patient has a left ischial decubitus ulcer that can be identified to be stage IV with palpable bone that has been resolving as noted by the periwound tissue and scar but open area approximately 1 cm x 1.5 cm few millimeters deep to bone identified. Unsure if this is been to be completely healed prior and has since opened or if has been healing at this level. No foul odor no drainage was unsure local wound care until healed Bilateral heels soft without signs of injury Resolving pressure injury L ischium(L)1.8cm x (W)1cm.Scattered biofilm at base of wound. Edges flat and adherent with surrounding hyperpigmentation. No odor or exudate noted. Sacrum is pale pink with surrounding hyperpigmentation. Hyperpigmentation R ischium with small sheared area centrally.No areas of erythema or exudate noted. Both heels are soft but blanchable. Skin Assessed under collar of trach and no evidence of skin breakdown noted. All wound Tx. are effective and continued as ordered. Pt ahs an APM/Belén mattress overlay and is being repositioned per protocols and per tolerance.No new skin concerns noted. Treatment plan: Please apply skin protectant and optifoam to sacral area. Change every 3 days Please apply skin protectant and optifoam to right ischial area. Change every 3 days Please apply Thera honey infused gauze to small opening in the left ischial wound bed followed by skin protectant in the periwound and up to foam. Change daily as needed saturation Apply Xeroform and dressing over left hand blister. Offload pressure from heels with pillow Air soft mattress Turn every 2 hours Nutritional optimization We will monitor follow with recommendations (2) Sepsis Assessment & Plan: IV abx as per ID trend labs wounds unlikely etiology likely respiratory improved (3) Feeding by G-tube Assessment & Plan: DAILY ESTIMATED NEEDS: Needs based on Pulmonary, wounds, bedbound/ 60kg adj 25-28 kcals/kg 6727-1850 total kcals 1.25-2 g protein/kg 75-120 g total protein 25-30 mL/kg 1622-1341 total fluid mLs NUTRITION DIAGNOSIS: * Swallowing difficulty R/T respiratory status as evidenced by pt on T-collar, now back the vent, PEG dep, TF held at this time due to episodes of vomiting. * Increased kcal/prot needs R/T wound healing as evidenced by BL buttocks and sacral wound photos, refer to reynaldo. CURRENT TF:Jevity 1.2 @ 40ml/hr x 24 hrs -> TF ORDER DC'ED THIS AM ENTERAL NUTRITION RECOMMENDATIONS: Osmolite 1.2 @ 55ml/hr x 24 hrs + Prosource 1pkt QD to provide 1320ml, 1584kcal , 73g +11g prot, 1060ml free water - Once medically appropriate to resume TF, rec to initiate isotonic formula of Osmolite 1.2 for possible improved tolerance - Initiate Osmolite 1.2 @ 25ml/hr x 6hrs, advance 10ml q 4-6 hrs as tolerated to goal rate - W/ good TF tolerance at goal, add Prosource 1pkt daily to meet protein needs - Flush per MD/ HOB over 30 degrees ADDITIONAL RECOMMENDATIONS: 1) Re-calibrated bedscale wt for accurate CBW 2) Wound healing: Add Cristian 1pkt BID + MVI x 1 Pt w/ full thickness resolving wound 3) Monitor lytes, replete as needed 4) Monitor NPO status, ability to resume TF. -> held on and off due to vomitting since 02/02, TF dc'ed on 02/06. (4) Chronic vegetative state Assessment & Plan: incontinence of urine and stool. can soil dressings. nurses doing great job with monitoring and changing prn (5) Leukocytosis Walter Madera Feb 11, 2019 15:44
[2019-02-11 16:00] VITALS: BP 141/76
--- NOTE | 2019-02-11 16:20 | NUR ---
HAND-OFF: Report given to BENJI PAEZ.. Addendum: 02/11/19 at 2020 by MALIK MENDOZA RN WRONG CHARTING.
--- NOTE | 2019-02-11 16:20 | NUR ---
NURSE NOTES: [facility] INSERT PICC-LINE ON RT UPPER ARM. PT TOLERATED WELL PROCEDURE . CHEST X-RAY DONE . A WAITING FOR CONFIRMATION FROM [facility] TO USE THE PICC-LINE. WILL CONT TO MONITOR.
--- NOTE | 2019-02-11 16:25 | NUR ---
RADIOLOGY NOTE: RIGHT UPPER EXTREMITY PICC PLACED.
--- NOTE | 2019-02-11 16:45 | NUR ---
NURSE NOTES:VIC RN IN CHARGE RECEIVED A T.O FROM DR HERNÁNDEZ THAT PICC-LINE OK TO USE. PT PICC-LINE PATENT AND INTACT NOTED. WILL CONT TO MONITOR.
--- NOTE | 2019-02-11 17:08 | Diagnostic Imaging Report ---
Indication: long term care pharmacist venous access Findings: After the indications, procedure, risks, complications, and alternatives of the procedure were explained, written informed consent was obtained. The right upper extremity was prepped with alcohol. All elements of maximal sterile barrier technique were followed including usage of a cap, mask, sterile gown, sterile gloves, hand hygiene and a large sterile sheet. Sonographic evaluation of the upper extremity was performed demonstrating a patent and compressible brachial vein. Access was obtained under real-time ultrasound guidance (with utilization of sterile gel and sterile probe cover) and digital image was saved and archived. An .018 wire was introduced. Needle exchanged for a 5 Welsh peel-away sheath. Measurements were obtained. A 5 Welsh dual-lumen Power PICC line catheter was cut to 35 cm and introduced over the wire. Peel-away sheath and wire were removed.Catheter was secured to the skin using 2-0 Prolene suture. Both ports aspirate and flush easily. Post procedure chest x-ray demonstrates good position of the PICC line catheter within the SVC. Impression: Successful placement of an upper extremity PICC line catheter
--- NOTE | 2019-02-11 19:35 | NUR ---
NURSE NOTES: Received patient from JEANNINE Hahn. patient is observed in bed, obtunded, unable to make needs known. no s/sx of pain noted at this time. Vent to trach settings: Shiley: 6, AC: 14, TV: 450, FiO2: 35%, PEEP: 5. tolerating well, saturating at 100%, no s/sx of respiratory distress noted. G-tube site is patent and intact, running Glucerna 1.5 at 20 cc/hr. HOB elevated, no residual noted. Purewick to suction, draining yellow urine. skin alterations noted. JOSY PICC noted, patent and intact, running D5NS at 75 cc/hr. dressing dry and intact. bed in lowest position and locked, padded siderails x3, call light within reach. will continue to monitor.
[2019-02-11 20:00] VITALS: BP 154/73
--- NOTE | 2019-02-11 20:24 | NUR ---
NURSE NOTES: spoke with Dr. Vaughan regarding possible procedure tomorrow. per Dr. Vaughan, okay to continue feeding and administer heparin as scheduled.
[2019-02-11] MEDS: Dyna-Hex 2% Top Sol 2oz TOPIC SCH (20:34)
--- NOTE | 2019-02-11 21:48 | General Progress Note ---
Assessment/Plan Status: stable, progressing Assessment/Plan: Assessment - N/V - recurrent - suspect gastroparesis - will hold off on G to J conversion - Elevated Alk phos / LFT - CT negative - but alk phons higher past two days - will order abd ultrasound - may need contrast CT or MRI to better evaluate - Anemia with OB (-) stools - Resp failure, s/p Trach - dysphagia, s/p PEG - OBS - poor Px Recommendations - laxative PRN - continue TF - aspiration precautions - elevate HOB - Check abd ultrasound - may need contrast CT or MRI (latter difficult on vent and in MRI trailer) - PPI - Elevate HOB Subjective Allergies: Coded Allergies: CODEINE (Verified Allergy, Unknown, HIVES, 09/15/09) Subjective d/w RN and PMD had some N/V yesterday d/w pt daughter at length patient previously with GJ tube at [facility] advised DTR pt should get GJ tube again all options, including surgical J tube explained advised DTR re risks of recurrent N/V advised DTR re patient's poor overall prognosis (trach, PEG, OBS, Decub, bed bound) regardless of intensity of medical care DTR initially agreed to Endoscopic G --> j conversion in am Subsequently she called Jovani the RN and stated she wants to hold off on G - J conversion Objective Last 24 Hour Vital Signs Date Time Temp Pulse Resp B/P (MAP) Pulse Ox O2 Delivery O2 Flow Rate FiO2 02/11/19 20:34 84 154/73 02/11/19 17:56 83 18 30 02/11/19 16:00 98.0 83 14 141/76 (97) 100 02/11/19 16:00 83 02/11/19 16:00 Mechanical Ventilator 02/11/19 16:00 30 02/11/19 15:15 89 14 100 Mechanical Ventilator 30 86 14 30 02/11/19 12:41 81 14 30 02/11/19 12:00 98.2 88 17 138/68 (91) 100 02/11/19 12:00 Mechanical Ventilator 02/11/19 12:00 30 02/11/19 11:30 84 02/11/19 10:30 81 14 100 Mechanical Ventilator 30 84 14 30 02/11/19 10:06 91 139/75 02/11/19 09:08 92 25 30 02/11/19 08:00 Mechanical Ventilator 02/11/19 08:00 98.2 91 14 139/75 (96) 100 02/11/19 08:00 30 02/11/19 07:28 85 02/11/19 07:03 80 14 100 Mechanical Ventilator 30 79 14 30 02/11/19 07:03 100 Mechanical Ventilator 30 02/11/19 05:15 94 25 Mechanical Ventilator 30 02/11/19 04:11 82 02/11/19 04:00 30 02/11/19 04:00 98.1 84 14 109/64 (79) 100 02/11/19 04:00 Mechanical Ventilator 02/11/19 02:53 93 20 100 Mechanical Ventilator 30 94 22 30 02/11/19 00:56 81 14 30 02/11/19 00:03 90 02/11/19 00:00 98.2 88 16 132/58 (82) 100 02/11/19 00:00 Mechanical Ventilator 02/11/19 00:00 30 02/10/19 23:16 83 14 100 Mechanical Ventilator 30 85 16 30 Intake and Output 02/10/19 02/11/19 19:00 07:00 Intake Total 1372.542 ml 1144.29 ml Output Total 750 ml 300 ml Balance 622.542 ml 844.29 ml IV Total 952.542 ml 904.29 ml Tube Feeding 240 ml 240 ml Other 180 ml Output Urine Total 750 ml 300 ml # Bowel Movements 2 Laboratory Tests 02/11/19 03:15: Sodium Level 141, Potassium Level 3.5, Chloride Level 108H, Carbon Dioxide Level 23, Anion Gap 10, Blood Urea Nitrogen 12, Creatinine 1.8H, Estimat Glomerular Filtration Rate , Glucose Level 94, Calcium Level 8.5, Total Bilirubin 0.4, Aspartate Amino Transf (AST/SGOT) 63H, Alanine Aminotransferase ( ALT/SGPT) 52, Alkaline Phosphatase 391H, Total Protein 6.9, Albumin 1.8L, Globulin 5.1, Albumin/Globulin Ratio 0.4L Height (Feet): 5 Height (Inches): 5.00 Weight (Pounds): 180 Objective Debilitated AA woman NCAT (+) trach coarse ronchi RR obese abd Celio Vaughan MD Feb 11, 2019 21:48
--- NOTE | 2019-02-11 23:05 | NUR ---
NURSE NOTES: patient noted to vomited slightly. suctioned patient's mouth; residual checked, none noted. will stop feeding at this time, reassess patient, and will restart feeding if no vomiting noted.
[2019-02-12] VITALS: BP 113/77
[2019-02-12] MEDS: Albuterol/Ipratropium 3ml neb HHN PRN ×6 (00:01→23:27)
--- NOTE | 2019-02-12 02:15 | NUR ---
NURSE NOTES: no episodes of vomiting noted. no residual noted. will resume feeding at 20 cc/hr. will continue to monitor patient.
--- NOTE | 2019-02-12 02:15 | Progress Note ---
DATE: 02/11/2019 CARDIOLOGY PROGRESS NOTE SUBJECTIVE: The patient is not tolerating feedings at low rate due to residuals. She remains on ventilator support. Secretions are moderate and thick. Monitored rhythm sinus. OBJECTIVE: VITAL SIGNS: Blood pressure 139/75, pulse 92, respiratory rate 25, and afebrile. Moderate secretions. LUNGS: Scattered rhonchi. CARDIAC: Regular rhythm and rate. Normal S1 and S2. No new murmur. ABDOMEN: Soft. G-tube intact. EXTREMITIES: 1+ dependent edema. LABORATORY DATA: Sodium 141, potassium 3.5, BUN 12, creatinine 1.8, bicarb 23, and albumin 1.8. IMPRESSION: 1. Respiratory failure. 2. Acute on chronic diastolic congestive heart failure. 3. Acute on chronic renal failure. 4. Profound polymicrobial sepsis. 5. Recovered shock. 6. Advanced dementia. 7. Anemia of chronic disease and chronic kidney disease. 8. prophylaxis, status post PICC line insertion. PLAN: 1. GI followup. 2. May need G to J conversion. 3. Replace electrolytes. 4. Recheck magnesium level. 5. Hold diuresis. 6. stabilization of renal function. 7. Ventilator support. Bg Hagen M.D. DR: CHARLEE JOB#: [id number] CC:
--- NOTE | 2019-02-12 02:25 | NUR ---
NURSE NOTES: patient is npo now d/t scheduled abd u/s in am. no episodes of vomiting. will continue to monitor.
[2019-02-12 04:00] VITALS: BP 131/62
[2019-02-12 05:56] LABS: HEMATOCRIT 24.2 % (37.0-47.0); HEMOGLOBIN 7.5 G/DL (12.0-16.0); MEAN CORPUSCULAR VOLUME 85 FL (80-99); PLATELET COUNT 282 K/UL (150-450); RED BLOOD COUNT 2.86 M/UL (4.20-5.40); RED CELL DISTRIBUTION WIDTH 16.4 % (11.6-14.8); WHITE BLOOD COUNT 8.2 K/UL (4.8-10.8)
[2019-02-12 06:23] LABS: ALANINE AMINOTRANSFERASE 45 U/L (12-78); ALBUMIN 1.8 G/DL (3.4-5.0); ALBUMIN/GLOBULIN RATIO 0.3 (1.0-2.7); ALKALINE PHOSPHATASE 328 U/L (46-116); ANION GAP 11 mmol/L (5-15); ASPARTATE AMINO TRANSFERASE 58 U/L (15-37); BILIRUBIN,TOTAL 0.3 MG/DL (0.2-1.0); BLOOD UREA NITROGEN 10 mg/dL (7-18); CALCIUM 8.3 MG/DL (8.5-10.1); CARBON DIOXIDE 24 MMOL/L (21-32); CHLORIDE 103 MMOL/L (98-107); CREATININE 1.7 MG/DL (0.55-1.30); POTASSIUM 3.1 MMOL/L (3.5-5.1); SODIUM 138 MMOL/L (136-145)
--- NOTE | 2019-02-12 06:46 | NUR ---
NURSE NOTES: left message for Dr. Beltrán regarding patient's hemoglobin, potassium, and magnesium levels. awaiting call back.
--- NOTE | 2019-02-12 06:59 | NUR ---
NURSE NOTES: received orders from Dr. Beltrán. will carry out.
--- NOTE | 2019-02-12 07:01 | NUR ---
NURSE NOTES: left message for patient's daughter to obtain consent for blood transfusion. awaiting call back.
--- NOTE | 2019-02-12 07:48 | NUR ---
HAND-OFF: Report given to JEANNINE Santos. patient is in stable condition. endorsed to RN to f/u in regards to consent for blood transfusion.
--- NOTE | 2019-02-12 07:50 | NUR ---
NURSE NOTE: Patient received lying in bed, eyes open spontaneously, non-verbal. On trach to vent, AC-14, TV-450, FiO2- 35%, PEEP-5, Oxygen saturation 100%. No respiratory distress. Patient with g-tube, feeding held for Abdominal US pending. No residual noted. No vomiting noted. Abdomen soft, non-tender, distended. Pure wick catheter in place. Extremities elevated, heels offloaded. Sinus Rhythm on on the monitor rate of 70s. Head of bed elevated. Pending blood transfusion and electrolyte replacement for magnesium and potassium. Will continue to monitor.
[2019-02-12 08:00] VITALS: BP 128/71
[2019-02-12] MEDS: levETIRAcetam 500mg/5ml Liquid GT SCH ×2 (08:10→20:50)
[2019-02-12] MEDS: Pantoprazole Inj IVP SCH ×2 (08:10→20:50)
[2019-02-12] MEDS: Docusate 100mg/10ml Liq GT SCH ×3 (08:11→17:03)
[2019-02-12] MEDS: Ascorbic Acid 500mg tab GT SCH (08:11)
[2019-02-12] MEDS: Heparin 5000 units/ml inj SUBQ SCH ×2 (08:13→20:50)
--- NOTE | 2019-02-12 08:38 | Pulmonology Progress Note ---
Assessment/Plan Assessment/Plan Impression: Sepsis syndrome Pneumonia VDRF, Trach, G tube, Hypertension, Cardiac disease, Dementia, Previous CVA, Seizure disorder, Respiratory failure with hypoxia Anemia Sacral ulcer renal cyst Plan maintain same for now mucomyst and duoneb SNF meds as is unable to wean at present full vent support as needed Oxygen as needed Monitor labs for change changes noted Patient is a DNR. No CPR. dc planning per family and primary impression, plan, and exam edited and reviewed in detail care discussed with RN Subjective ROS Limited/Unobtainable: Yes Allergies: Coded Allergies: CODEINE (Verified Allergy, Unknown, HIVES, 09/15/09) Subjective respiratory care reviewed noted congestion supportive care noted RT care reviewed overnight care reviewed placement pending Objective Last 24 Hour Vital Signs Date Time Temp Pulse Resp B/P (MAP) Pulse Ox O2 Delivery O2 Flow Rate FiO2 02/12/19 08:11 79 128/71 02/12/19 07:23 75 14 100 Mechanical Ventilator 30 76 14 30 02/12/19 07:22 100 Mechanical Ventilator 30 02/12/19 05:26 76 16 30 02/12/19 04:00 98.3 74 14 131/62 (85) 100 02/12/19 04:00 30 02/12/19 04:00 Mechanical Ventilator 02/12/19 03:48 78 02/12/19 03:07 71 16 100 Mechanical Ventilator 30 79 14 30 02/12/19 01:00 74 16 Mechanical Ventilator 30 02/12/19 00:01 76 14 100 Mechanical Ventilator 30 76 14 30 02/12/19 00:00 30 02/12/19 00:00 97.7 84 23 113/77 (89) 99 02/12/19 00:00 Mechanical Ventilator 02/11/19 23:42 80 02/11/19 21:00 76 16 Mechanical Ventilator 30 02/11/19 20:34 84 154/73 02/11/19 20:00 Mechanical Ventilator 02/11/19 20:00 30 02/11/19 20:00 97.9 84 18 154/73 (100) 100 02/11/19 19:07 82 02/11/19 19:00 77 18 100 Mechanical Ventilator 30 77 18 30 02/11/19 19:00 100 Mechanical Ventilator 30 02/11/19 17:56 83 18 30 02/11/19 16:00 98.0 83 14 141/76 (97) 100 02/11/19 16:00 83 02/11/19 16:00 Mechanical Ventilator 02/11/19 16:00 30 02/11/19 15:15 89 14 100 Mechanical Ventilator 30 86 14 30 02/11/19 12:41 81 14 30 02/11/19 12:00 98.2 88 17 138/68 (91) 100 02/11/19 12:00 Mechanical Ventilator 02/11/19 12:00 30 02/11/19 11:30 84 02/11/19 10:30 81 14 100 Mechanical Ventilator 30 84 14 30 02/11/19 10:06 91 139/75 02/11/19 09:08 92 25 30 Intake and Output 02/11/19 02/12/19 19:00 07:00 Intake Total 470 ml 898.75 ml Output Total 400 ml Balance 470 ml 498.75 ml Free Water 250 ml 50 ml IV Total 768.75 ml Tube Feeding 220 ml 80 ml Output Urine Total 400 ml # Voids 3 3 # Bowel Movements 4 1 Objective WDWN NAD contracted on vent reduced breath sounds bilaterally with scattered rhonchi same [id number] without MRG NABS nontender no HSM no CC minimal nonfocal nonverbal trach and gt reviewed and edited Microbiology Date/Time Source Procedure Growth Status 02/09/19 14:05 Indwelling Cath Urine Culture - Final Proteus Mirabilis Complete Laboratory Tests 02/12/19 04:20: White Blood Count 8.2, Red Blood Count 2.86L, Hemoglobin 7.5L, Hematocrit 24.2L , Mean Corpuscular Volume 85, Mean Corpuscular Hemoglobin 26.3L, Mean Corpuscular Hemoglobin Concent 31.0L, Red Cell Distribution Width 16.4H, Platelet Count 282, Mean Platelet Volume 4.9L, Neutrophils (%) (Auto) , Lymphocytes (%) (Auto) , Monocytes (%) (Auto) , Eosinophils (%) (Auto) , Basophils (%) (Auto) , Neutrophils % (Manual) [Pending], Lymphocytes % (Manual) [Pending], Platelet Estimate [Pending], Platelet Morphology [Pending], Sodium Level 138, Potassium Level 3.1L, Chloride Level 103, Carbon Dioxide Level 24, Anion Gap 11, Blood Urea Nitrogen 10, Creatinine 1.7H, Estimat Glomerular Filtration Rate , Glucose Level 76, Calcium Level 8.3L, Phosphorus Level [ Pending], Magnesium Level 1.5L, Total Bilirubin 0.3, Aspartate Amino Transf (AST /SGOT) 58H, Alanine Aminotransferase (ALT/SGPT) 45, Alkaline Phosphatase 328H, Pro-B-Type Natriuretic Peptide 956H, Total Protein 7.0, Albumin 1.8L, Globulin 5.2, Albumin/Globulin Ratio 0.3L Current Medications Medications (Trade) Dose Ordered Sig/Maicol Route PRN Reason Start Time Stop Time Status Last Admin Dose Admin Acetaminophen (Tylenol) 650 mg Q4H PRN GT Mild Pain/Temp > 100.5 02/03/19 19:30 03/05/19 19:29 02/07/19 00:13 Acetylcysteine (Mucomyst) 100 mg Q4HRT HHN 02/01/19 15:00 03/03/19 12:59 02/12/19 07:22 Albuterol/ Ipratropium (Albuterol/ Ipratropium) 3 ml Q4H PRN HHN Shortness of Breath 02/07/19 15:00 02/12/19 14:59 02/12/19 07:22 Ascorbic Acid (Vitamin C) 250 mg DAILY GT 02/09/19 09:00 02/24/19 08:59 02/12/19 08:11 Atropine Sulfate (Atropine Opth Adriana) 1 drop TID SL 02/10/19 09:30 03/12/19 09:29 02/12/19 08:11 Bisacodyl (Dulcolax) 10 mg PRN PRN RECTAL Constipation 01/24/19 05:30 02/23/19 05:29 Ceftriaxone Sodium 1 gm/ Dextrose 55 ml @ 110 mls/hr Q24H IVPB 02/11/19 14:00 02/18/19 13:59 02/11/19 14:42 Chlorhexidine Gluconate (Cesilia-Hex 2%) 1 applic DAILY@2000 TOPIC 02/10/19 20:00 03/12/19 19:59 02/11/19 20:34 Dextrose/Sodium Chloride 1,000 ml @ 75 mls/hr [id number] IV 02/06/19 07:45 03/08/19 07:44 02/11/19 20:45 Docusate Sodium (Colace) 100 mg TID GT 02/08/19 18:00 02/23/19 05:29 02/12/19 08:11 Heparin Sodium (Porcine) (Heparin 5000 units/ml) 5,000 units EVERY 12 HOURS SUBQ 01/24/19 09:00 02/23/19 08:59 02/12/19 08:13 Hydralazine HCl (Apresoline) 25 mg Q4H PRN GT SBP above 160 02/08/19 15:15 03/09/19 16:29 Levetiracetam (Keppra) 750 mg Q12HR GT 01/28/19 21:00 02/23/19 08:59 02/12/19 08:10 Magnesium Sulfate 100 ml @ 100 mls/hr Q1H IVPB 02/12/19 07:00 02/12/19 08:59 02/12/19 08:28 Magnesium Sulfate 100 ml @ 100 mls/hr Q1H IVPB 02/12/19 08:30 02/12/19 12:29 UNV Metoclopramide HCl (Reglan) 10 mg Q6H PRN IVP Nausea & Vomiting 02/07/19 09:00 03/09/19 08:59 Metoprolol Tartrate (Lopressor) 25 mg Q12HR GT 02/07/19 01:45 03/09/19 01:44 02/12/19 08:11 Ondansetron HCl (Zofran) 4 mg Q6H PRN GT Nausea & Vomiting 01/24/19 05:30 02/23/19 05:29 02/06/19 10:30 Pantoprazole (Protonix) 40 mg Q12HR IVP 02/08/19 21:00 03/06/19 08:59 02/12/19 08:10 Potassium Chloride 100 ml @ 100 mls/hr Q1HR IVPB 02/12/19 07:00 02/12/19 10:59 02/12/19 08:28 Amaury Chan MD Feb 12, 2019 08:38
--- NOTE | 2019-02-12 09:18 | NUR ---
DISCHARGE PLANNING PATIENT HAS BEEN REFERRED TO [facility] ([facility]) PROFILER OPERATOR IS CINDY T: [phone] F: [phone]
--- NOTE | 2019-02-12 10:18 | NUR ---
RD ASSESSMENT & RECOMMENDATIONS SEE CARE ACTIVITY FOR COMPLETE ASSESSMENT DAILY ESTIMATED NEEDS: Needs based on Pulmonary, wounds, bedbound/ 60kg adj 25-28 kcals/kg 8045-8545 total kcals 1.25-2 g protein/kg 75-120 g total protein 25-30 mL/kg 6995-2739 total fluid mLs NUTRITION DIAGNOSIS: * Swallowing difficulty R/T respiratory status as evidenced by pt on T-collar, now back the vent, PEG dep, TF changed to low rate at this time due to episodes of vomiting + residuals. * Increased kcal/prot needs R/T wound healing as evidenced by BL buttocks and sacral wound photos, refer to eval. (CURRENT TF:Glucerna 1.5 @35ml) ENTERAL NUTRITION RECOMMENDATIONS: VITAL AF 1.2 @ 55ml/hr x 24 hrs to provide 1320ml, 1584kcal, 99g prot, 1060ml free water - Once medically appropriate to resume TF, rec to initiate elemental and carb control formula of Vital 1.2 for possible improved tolerance - Initiate VITAL 1.2 @ 25ml/hr x 6hrs, advance 10ml q 4-6 hrs as tolerated to goal rate - Flush per MD/ HOB over 30 degrees ADDITIONAL RECOMMENDATIONS: 1) Re-calibrated bedscale wt for accurate CBW 2) Wound healing: Add Cristian 1pkt BID w/ improved Tf tolerace + MVI x1 daily 3) Monitor lytes, replete as needed (low Mg, K) 4) Monitor NPO status, ability to resume TF. -> held on and off due to vomiting since 02/02 5) SSI prn
--- NOTE | 2019-02-12 10:28 | Nephrology Progress Note ---
Assessment/Plan Problem List: (1) Acute renal failure (ARF) Assessment: Cr stable (2) Chronic respiratory failure (3) Anemia (4) Sepsis Assessment Acute renal failure Respiratory failure - Trach Low Mag- Low k , Low Na Anemia UTI / Sepsis Proteinuria / HypoAlbuminemia high Trigs Sz decubs bed bound DNR Plan K supplement Hydrate Urine studies avoid Nephrotoxics mag K Phos supplements as needed monitor renal parameters Subjective ROS Limited/Unobtainable: Yes Objective Objective Last 24 Hour Vital Signs Date Time Temp Pulse Resp B/P (MAP) Pulse Ox O2 Delivery O2 Flow Rate FiO2 02/12/19 09:00 78 14 30 02/12/19 08:11 79 128/71 02/12/19 08:00 97.7 79 14 128/71 (90) 100 02/12/19 07:23 75 14 100 Mechanical Ventilator 30 76 14 30 02/12/19 07:22 100 Mechanical Ventilator 30 02/12/19 05:26 76 16 30 02/12/19 04:00 98.3 74 14 131/62 (85) 100 02/12/19 04:00 30 02/12/19 04:00 Mechanical Ventilator 02/12/19 03:48 78 02/12/19 03:07 71 16 100 Mechanical Ventilator 30 79 14 30 02/12/19 01:00 74 16 Mechanical Ventilator 30 02/12/19 00:01 76 14 100 Mechanical Ventilator 30 76 14 30 02/12/19 00:00 30 02/12/19 00:00 97.7 84 23 113/77 (89) 99 02/12/19 00:00 Mechanical Ventilator 02/11/19 23:42 80 02/11/19 21:00 76 16 Mechanical Ventilator 30 02/11/19 20:34 84 154/73 02/11/19 20:00 Mechanical Ventilator 02/11/19 20:00 30 02/11/19 20:00 97.9 84 18 154/73 (100) 100 02/11/19 19:07 82 02/11/19 19:00 77 18 100 Mechanical Ventilator 30 77 18 30 02/11/19 19:00 100 Mechanical Ventilator 30 02/11/19 17:56 83 18 30 02/11/19 16:00 98.0 83 14 141/76 (97) 100 02/11/19 16:00 83 02/11/19 16:00 Mechanical Ventilator 02/11/19 16:00 30 02/11/19 15:15 89 14 100 Mechanical Ventilator 30 86 14 30 02/11/19 12:41 81 14 30 02/11/19 12:00 98.2 88 17 138/68 (91) 100 02/11/19 12:00 Mechanical Ventilator 02/11/19 12:00 30 02/11/19 11:30 84 02/11/19 10:30 81 14 100 Mechanical Ventilator 30 84 14 30 Intake and Output 02/11/19 02/12/19 19:00 07:00 Intake Total 470 ml 898.75 ml Output Total 400 ml Balance 470 ml 498.75 ml Free Water 250 ml 50 ml IV Total 768.75 ml Tube Feeding 220 ml 80 ml Output Urine Total 400 ml # Voids 3 3 # Bowel Movements 4 1 Laboratory Tests 02/12/19 04:20: White Blood Count 8.2, Red Blood Count 2.86L, Hemoglobin 7.5L, Hematocrit 24.2L , Mean Corpuscular Volume 85, Mean Corpuscular Hemoglobin 26.3L, Mean Corpuscular Hemoglobin Concent 31.0L, Red Cell Distribution Width 16.4H, Platelet Count 282, Mean Platelet Volume 4.9L, Neutrophils (%) (Auto) , Lymphocytes (%) (Auto) , Monocytes (%) (Auto) , Eosinophils (%) (Auto) , Basophils (%) (Auto) , Differential Total Cells Counted 100, Neutrophils % ( Manual) 69, Lymphocytes % (Manual) 16L, Monocytes % (Manual) 4, Eosinophils % ( Manual) 11H, Basophils % (Manual) 0, Band Neutrophils 0, Platelet Estimate Adequate, Platelet Morphology Normal, Sodium Level 138, Potassium Level 3.1L, Chloride Level 103, Carbon Dioxide Level 24, Anion Gap 11, Blood Urea Nitrogen 10, Creatinine 1.7H, Estimat Glomerular Filtration Rate , Glucose Level 76, Calcium Level 8.3L, Phosphorus Level 4.3, Magnesium Level 1.5L, Total Bilirubin 0.3, Aspartate Amino Transf (AST/SGOT) 58H, Alanine Aminotransferase (ALT/SGPT) 45, Alkaline Phosphatase 328H, Pro-B-Type Natriuretic Peptide 956H, Total Protein 7.0, Albumin 1.8L, Globulin 5.2, Albumin/Globulin Ratio 0.3L Height (Feet): 5 Height (Inches): 5.00 Weight (Pounds): 180 General Appearance: no apparent distress EENT: other - trach Cardiovascular: normal rate Respiratory/Chest: decreased breath sounds Abdomen: distended Eric Cortez MD Feb 12, 2019 10:28
--- NOTE | 2019-02-12 10:39 | Infectious Diseases Prog Note ---
Assessment/Plan Assessment/Plan A 1. Acinetobacter, pseudomonas & Klebsiella pneumonia treated 2. respiratory failure 3. hypertension 4. CVA 5. dementia 6. sacral decubitus ulcer 7. rectal VRE colonization 8. Anemia 9. Proteus UTI 10. Acute renal failure P 1. continue Rocephin X 4 days Subjective ROS Limited/Unobtainable: Yes Constitutional: Denies: fever Allergies: Coded Allergies: CODEINE (Verified Allergy, Unknown, HIVES, 09/15/09) Objective Vital Signs Last 24 Hour Vital Signs Date Time Temp Pulse Resp B/P (MAP) Pulse Ox O2 Delivery O2 Flow Rate FiO2 02/12/19 09:00 78 14 30 02/12/19 08:11 79 128/71 02/12/19 08:00 97.7 79 14 128/71 (90) 100 02/12/19 07:23 75 14 100 Mechanical Ventilator 30 76 14 30 02/12/19 07:22 100 Mechanical Ventilator 30 02/12/19 05:26 76 16 30 02/12/19 04:00 98.3 74 14 131/62 (85) 100 02/12/19 04:00 30 02/12/19 04:00 Mechanical Ventilator 02/12/19 03:48 78 02/12/19 03:07 71 16 100 Mechanical Ventilator 30 79 14 30 02/12/19 01:00 74 16 Mechanical Ventilator 30 02/12/19 00:01 76 14 100 Mechanical Ventilator 30 76 14 30 02/12/19 00:00 30 02/12/19 00:00 97.7 84 23 113/77 (89) 99 02/12/19 00:00 Mechanical Ventilator 02/11/19 23:42 80 02/11/19 21:00 76 16 Mechanical Ventilator 30 02/11/19 20:34 84 154/73 02/11/19 20:00 Mechanical Ventilator 02/11/19 20:00 30 02/11/19 20:00 97.9 84 18 154/73 (100) 100 02/11/19 19:07 82 02/11/19 19:00 77 18 100 Mechanical Ventilator 30 77 18 30 02/11/19 19:00 100 Mechanical Ventilator 30 02/11/19 17:56 83 18 30 02/11/19 16:00 98.0 83 14 141/76 (97) 100 02/11/19 16:00 83 02/11/19 16:00 Mechanical Ventilator 02/11/19 16:00 30 02/11/19 15:15 89 14 100 Mechanical Ventilator 30 86 14 30 02/11/19 12:41 81 14 30 02/11/19 12:00 98.2 88 17 138/68 (91) 100 02/11/19 12:00 Mechanical Ventilator 02/11/19 12:00 30 02/11/19 11:30 84 Height (Feet): 5 Height (Inches): 5.00 Weight (Pounds): 180 HEENT: status post trach Respiratory/Chest: rhonchi - bilaterally, other - on ventilator Cardiovascular: normal rate, other - PICC line Abdomen: soft, non tender, other - GT feeding Extremities: other - generalized edema Skin: ulcers Neurologic/Psychiatric: unresponsiveness, aphasia Microbiology Date/Time Source Procedure Growth Status 02/09/19 14:05 Indwelling Cath Urine Culture - Final Proteus Mirabilis Complete Laboratory Tests Test 02/12/19 04:20 White Blood Count 8.2 K/UL (4.8-10.8) Red Blood Count 2.86 M/UL (4.20-5.40) L Hemoglobin 7.5 G/DL (12.0-16.0) L Hematocrit 24.2 % (37.0-47.0) L Mean Corpuscular Volume 85 FL (80-99) Mean Corpuscular Hemoglobin 26.3 PG (27.0-31.0) L Mean Corpuscular Hemoglobin Concent 31.0 G/DL (32.0-36.0) L Red Cell Distribution Width 16.4 % (11.6-14.8) H Platelet Count 282 K/UL (150-450) Mean Platelet Volume 4.9 FL (6.5-10.1) L Neutrophils (%) (Auto) % (45.0-75.0) Lymphocytes (%) (Auto) % (20.0-45.0) Monocytes (%) (Auto) % (1.0-10.0) Eosinophils (%) (Auto) % (0.0-3.0) Basophils (%) (Auto) % (0.0-2.0) Differential Total Cells Counted 100 Neutrophils % (Manual) 69 % (45-75) Lymphocytes % (Manual) 16 % (20-45) L Monocytes % (Manual) 4 % (1-10) Eosinophils % (Manual) 11 % (0-3) H Basophils % (Manual) 0 % (0-2) Band Neutrophils 0 % (0-8) Platelet Estimate Adequate Platelet Morphology Normal Sodium Level 138 MMOL/L (136-145) Potassium Level 3.1 MMOL/L (3.5-5.1) L Chloride Level 103 MMOL/L (98-107) Carbon Dioxide Level 24 MMOL/L (21-32) Anion Gap 11 mmol/L (5-15) Blood Urea Nitrogen 10 mg/dL (7-18) Creatinine 1.7 MG/DL (0.55-1.30) H Estimat Glomerular Filtration Rate mL/min (>60) Glucose Level 76 MG/DL (74-106) Calcium Level 8.3 MG/DL (8.5-10.1) L Phosphorus Level 4.3 MG/DL (2.5-4.9) Magnesium Level 1.5 MG/DL (1.8-2.4) L Total Bilirubin 0.3 MG/DL (0.2-1.0) Aspartate Amino Transf (AST/SGOT) 58 U/L (15-37) H Alanine Aminotransferase (ALT/SGPT) 45 U/L (12-78) Alkaline Phosphatase 328 U/L (46-116) H Pro-B-Type Natriuretic Peptide 956 pg/mL (0-125) H Total Protein 7.0 G/DL (6.4-8.2) Albumin 1.8 G/DL (3.4-5.0) L Globulin 5.2 g/dL Albumin/Globulin Ratio 0.3 (1.0-2.7) L Current Medications Medications (Trade) Dose Ordered Sig/Maicol Route PRN Reason Start Time Stop Time Status Last Admin Dose Admin Acetaminophen (Tylenol) 650 mg Q4H PRN GT Mild Pain/Temp > 100.5 02/03/19 19:30 03/05/19 19:29 02/07/19 00:13 Acetylcysteine (Mucomyst) 100 mg Q4HRT HHN 02/01/19 15:00 03/03/19 12:59 02/12/19 07:22 Albuterol/ Ipratropium (Albuterol/ Ipratropium) 3 ml Q4H PRN HHN Shortness of Breath 02/07/19 15:00 02/12/19 14:59 02/12/19 07:22 Ascorbic Acid (Vitamin C) 250 mg DAILY GT 02/09/19 09:00 02/24/19 08:59 02/12/19 08:11 Atropine Sulfate (Atropine Opth Adriana) 1 drop TID SL 02/10/19 09:30 03/12/19 09:29 02/12/19 08:11 Bisacodyl (Dulcolax) 10 mg PRN PRN RECTAL Constipation 01/24/19 05:30 02/23/19 05:29 Ceftriaxone Sodium 1 gm/ Dextrose 55 ml @ 110 mls/hr Q24H IVPB 02/11/19 14:00 02/18/19 13:59 02/11/19 14:42 Chlorhexidine Gluconate (Cesilia-Hex 2%) 1 applic DAILY@2000 TOPIC 02/10/19 20:00 03/12/19 19:59 02/11/19 20:34 Dextrose/Sodium Chloride 1,000 ml @ 75 mls/hr [id number] IV 02/06/19 07:45 03/08/19 07:44 02/11/19 20:45 Docusate Sodium (Colace) 100 mg TID GT 02/08/19 18:00 02/23/19 05:29 02/12/19 08:11 Heparin Sodium (Porcine) (Heparin 5000 units/ml) 5,000 units EVERY 12 HOURS SUBQ 01/24/19 09:00 02/23/19 08:59 02/12/19 08:13 Hydralazine HCl (Apresoline) 25 mg Q4H PRN GT SBP above 160 02/08/19 15:15 03/09/19 16:29 Levetiracetam (Keppra) 750 mg Q12HR GT 01/28/19 21:00 02/23/19 08:59 02/12/19 08:10 Magnesium Sulfate 100 ml @ 100 mls/hr Q1H IVPB 02/12/19 10:00 02/12/19 11:59 Metoclopramide HCl (Reglan) 10 mg Q6H PRN IVP Nausea & Vomiting 02/07/19 09:00 03/09/19 08:59 Metoprolol Tartrate (Lopressor) 25 mg Q12HR GT 02/07/19 01:45 03/09/19 01:44 02/12/19 08:11 Ondansetron HCl (Zofran) 4 mg Q6H PRN GT Nausea & Vomiting 01/24/19 05:30 02/23/19 05:29 02/06/19 10:30 Pantoprazole (Protonix) 40 mg Q12HR IVP 02/08/19 21:00 03/06/19 08:59 02/12/19 08:10 Potassium Chloride 100 ml @ 100 mls/hr Q1HR IVPB 02/12/19 07:00 02/12/19 10:59 02/12/19 08:28 Chauncey Liriano MD Feb 12, 2019 10:39
[2019-02-12] MEDS: D5NS 1,000 ML IV SCH ×2 (11:08→23:59)
--- NOTE | 2019-02-12 11:08 | Surgery Progress Note ---
Surgery Progress Note Subjective Additional Comments labs improving picc line npo for Abd US today lfts stable Objective Last 24 Hour Vital Signs Date Time Temp Pulse Resp B/P (MAP) Pulse Ox O2 Delivery O2 Flow Rate FiO2 02/12/19 10:49 77 14 99 Mechanical Ventilator 30 77 14 30 02/12/19 09:00 78 14 30 02/12/19 08:11 79 128/71 02/12/19 08:00 77 02/12/19 08:00 30 02/12/19 08:00 97.7 79 14 128/71 (90) 100 02/12/19 07:23 75 14 100 Mechanical Ventilator 30 76 14 30 02/12/19 07:22 100 Mechanical Ventilator 30 02/12/19 05:26 76 16 30 02/12/19 04:00 98.3 74 14 131/62 (85) 100 02/12/19 04:00 30 02/12/19 04:00 Mechanical Ventilator 02/12/19 03:48 78 02/12/19 03:07 71 16 100 Mechanical Ventilator 30 79 14 30 02/12/19 01:00 74 16 Mechanical Ventilator 30 02/12/19 00:01 76 14 100 Mechanical Ventilator 30 76 14 30 02/12/19 00:00 30 02/12/19 00:00 97.7 84 23 113/77 (89) 99 02/12/19 00:00 Mechanical Ventilator 02/11/19 23:42 80 02/11/19 21:00 76 16 Mechanical Ventilator 30 02/11/19 20:34 84 154/73 02/11/19 20:00 Mechanical Ventilator 02/11/19 20:00 30 02/11/19 20:00 97.9 84 18 154/73 (100) 100 02/11/19 19:07 82 02/11/19 19:00 77 18 100 Mechanical Ventilator 30 77 18 30 02/11/19 19:00 100 Mechanical Ventilator 30 02/11/19 17:56 83 18 30 02/11/19 16:00 98.0 83 14 141/76 (97) 100 02/11/19 16:00 83 02/11/19 16:00 Mechanical Ventilator 02/11/19 16:00 30 02/11/19 15:15 89 14 100 Mechanical Ventilator 30 86 14 30 02/11/19 12:41 81 14 30 02/11/19 12:00 98.2 88 17 138/68 (91) 100 02/11/19 12:00 Mechanical Ventilator 02/11/19 12:00 30 02/11/19 11:30 84 I&O Intake and Output 02/11/19 02/12/19 19:00 07:00 Intake Total 470 ml 898.75 ml Output Total 400 ml Balance 470 ml 498.75 ml Free Water 250 ml 50 ml IV Total 768.75 ml Tube Feeding 220 ml 80 ml Output Urine Total 400 ml # Voids 3 3 # Bowel Movements 4 1 Dressing: saturated Wound: other Drains: other Cardiovascular: RSR Respiratory: decreased breath sounds Abdomen: soft, present bowel sounds, non-distended Extremities: no cyanosis, other Laboratory Tests Test 02/12/19 04:20 White Blood Count 8.2 K/UL (4.8-10.8) Red Blood Count 2.86 M/UL (4.20-5.40) L Hemoglobin 7.5 G/DL (12.0-16.0) L Hematocrit 24.2 % (37.0-47.0) L Mean Corpuscular Volume 85 FL (80-99) Mean Corpuscular Hemoglobin 26.3 PG (27.0-31.0) L Mean Corpuscular Hemoglobin Concent 31.0 G/DL (32.0-36.0) L Red Cell Distribution Width 16.4 % (11.6-14.8) H Platelet Count 282 K/UL (150-450) Mean Platelet Volume 4.9 FL (6.5-10.1) L Neutrophils (%) (Auto) % (45.0-75.0) Lymphocytes (%) (Auto) % (20.0-45.0) Monocytes (%) (Auto) % (1.0-10.0) Eosinophils (%) (Auto) % (0.0-3.0) Basophils (%) (Auto) % (0.0-2.0) Differential Total Cells Counted 100 Neutrophils % (Manual) 69 % (45-75) Lymphocytes % (Manual) 16 % (20-45) L Monocytes % (Manual) 4 % (1-10) Eosinophils % (Manual) 11 % (0-3) H Basophils % (Manual) 0 % (0-2) Band Neutrophils 0 % (0-8) Platelet Estimate Adequate Platelet Morphology Normal Sodium Level 138 MMOL/L (136-145) Potassium Level 3.1 MMOL/L (3.5-5.1) L Chloride Level 103 MMOL/L (98-107) Carbon Dioxide Level 24 MMOL/L (21-32) Anion Gap 11 mmol/L (5-15) Blood Urea Nitrogen 10 mg/dL (7-18) Creatinine 1.7 MG/DL (0.55-1.30) H Estimat Glomerular Filtration Rate mL/min (>60) Glucose Level 76 MG/DL (74-106) Calcium Level 8.3 MG/DL (8.5-10.1) L Phosphorus Level 4.3 MG/DL (2.5-4.9) Magnesium Level 1.5 MG/DL (1.8-2.4) L Total Bilirubin 0.3 MG/DL (0.2-1.0) Aspartate Amino Transf (AST/SGOT) 58 U/L (15-37) H Alanine Aminotransferase (ALT/SGPT) 45 U/L (12-78) Alkaline Phosphatase 328 U/L (46-116) H Pro-B-Type Natriuretic Peptide 956 pg/mL (0-125) H Total Protein 7.0 G/DL (6.4-8.2) Albumin 1.8 G/DL (3.4-5.0) L Globulin 5.2 g/dL Albumin/Globulin Ratio 0.3 (1.0-2.7) L Plan Problems: (1) Sacral decubitus ulcer Assessment & Plan: This is a 83-year-old female with multiple medical committees that is currently admitted for medical care and management and identified to have multiple wounds requiring care. On admission patient noted to have a resolved sacral decubitus ulcer. Has had prior care and is well-healed at this time. Will ensure it does not open up again. Patient has a right ischial decubitus ulcer that is resolved. Scar intact and well formed. Will monitor to ensure it does not open up again. Patient has a left ischial decubitus ulcer that can be identified to be stage IV with palpable bone that has been resolving as noted by the periwound tissue and scar but open area approximately 1 cm x 1.5 cm few millimeters deep to bone identified. Unsure if this is been to be completely healed prior and has since opened or if has been healing at this level. No foul odor no drainage was unsure local wound care until healed Bilateral heels soft without signs of injury Resolving pressure injury L ischium(L)1.8cm x (W)1cm.Scattered biofilm at base of wound. Edges flat and adherent with surrounding hyperpigmentation. No odor or exudate noted. Sacrum is pale pink with surrounding hyperpigmentation. Hyperpigmentation R ischium with small sheared area centrally.No areas of erythema or exudate noted. Both heels are soft but blanchable. Skin Assessed under collar of trach and no evidence of skin breakdown noted. All wound Tx. are effective and continued as ordered. Pt ahs an APM/Belén mattress overlay and is being repositioned per protocols and per tolerance.No new skin concerns noted. Treatment plan: Please apply skin protectant and optifoam to sacral area. Change every 3 days Please apply skin protectant and optifoam to right ischial area. Change every 3 days Please apply Thera honey infused gauze to small opening in the left ischial wound bed followed by skin protectant in the periwound and up to foam. Change daily as needed saturation Apply Xeroform and dressing over left hand blister. Offload pressure from heels with pillow Air soft mattress Turn every 2 hours Nutritional optimization We will monitor follow with recommendations (2) Sepsis Assessment & Plan: IV abx as per ID trend labs wounds unlikely etiology likely respiratory US pending abnormal lft's stable PICC on Abx improved (3) Feeding by G-tube Assessment & Plan: DAILY ESTIMATED NEEDS: Needs based on Pulmonary, wounds, bedbound/ 60kg adj 25-28 kcals/kg 1638-3747 total kcals 1.25-2 g protein/kg 75-120 g total protein 25-30 mL/kg 9314-9001 total fluid mLs NUTRITION DIAGNOSIS: * Swallowing difficulty R/T respiratory status as evidenced by pt on T-collar, now back the vent, PEG dep, TF held at this time due to episodes of vomiting. * Increased kcal/prot needs R/T wound healing as evidenced by BL buttocks and sacral wound photos, refer to reynaldo. CURRENT TF:Jevity 1.2 @ 40ml/hr x 24 hrs -> TF ORDER DC'ED THIS AM ENTERAL NUTRITION RECOMMENDATIONS: Osmolite 1.2 @ 55ml/hr x 24 hrs + Prosource 1pkt QD to provide 1320ml, 1584kcal , 73g +11g prot, 1060ml free water - Once medically appropriate to resume TF, rec to initiate isotonic formula of Osmolite 1.2 for possible improved tolerance - Initiate Osmolite 1.2 @ 25ml/hr x 6hrs, advance 10ml q 4-6 hrs as tolerated to goal rate - W/ good TF tolerance at goal, add Prosource 1pkt daily to meet protein needs - Flush per MD/ HOB over 30 degrees ADDITIONAL RECOMMENDATIONS: 1) Re-calibrated bedscale wt for accurate CBW 2) Wound healing: Add Cristian 1pkt BID + MVI x 1 Pt w/ full thickness resolving wound 3) Monitor lytes, replete as needed 4) Monitor NPO status, ability to resume TF. -> held on and off due to vomitting since 02/02, TF dc'ed on 02/06. (4) Chronic vegetative state Assessment & Plan: incontinence of urine and stool. can soil dressings. nurses doing great job with monitoring and changing prn (5) Leukocytosis Walter Madera Feb 12, 2019 11:07
--- NOTE | 2019-02-12 11:27 | Diagnostic Imaging Report ---
Indication: Abdominal pain Technique: Grayscale and duplex Doppler imaging of the abdomen performed. Comparison: None Findings: The liver is unremarkable. Doppler interrogation of the main portal vein shows patency with hepatopedal, monophasic flow. There is no biliary ductal dilatation identified. Gallbladder is unremarkable. CBD is 4.8 mm. There demonstrated part of the pancreas, aorta and IVC show no definite abnormalities. There is a 3.6 cm cyst within the left kidney. Renal cortex appears increased in echogenicity bilaterally. There is a 8 mm cyst in the right kidney. There is no hydronephrosis. IMPRESSION: Suspected medical renal disease. Bilateral renal cysts.
[2019-02-12 12:00] VITALS: BP 137/71
--- NOTE | 2019-02-12 12:00 | NUR ---
NURSE NOTES: Patient remains in stable condition. Respirations even and unlabored. Tube feeding initiated, no vomiting episode noted.
--- NOTE | 2019-02-12 12:01 | General Progress Note ---
Assessment/Plan Problem List: (1) Seizure ICD Codes: R56.9 - Unspecified convulsions SNOMED: 20909910 (2) Anemia ICD Codes: D64.9 - Anemia, unspecified SNOMED: 905139982 Qualifiers: Qualified Codes: D64.9 - Anemia, unspecified (3) Sepsis ICD Codes: A41.9 - Sepsis, unspecified organism SNOMED: 79592709, 566806303 Qualifiers: Qualified Codes: A41.9 - Sepsis, unspecified organism (4) Respiratory failure with hypoxia ICD Codes: J96.91 - Respiratory failure, unspecified with hypoxia SNOMED: 53549825345057447 Qualifiers: Qualified Codes: J96.21 - Acute and chronic respiratory failure with hypoxia (5) HCAP (healthcare-associated pneumonia) ICD Codes: J18.9 - Pneumonia, unspecified organism SNOMED: 088486965, 778676408 (6) Sacral decubitus ulcer ICD Codes: L89.159 - Pressure ulcer of sacral region, unspecified stage SNOMED: 667697185 (7) HTN (hypertension) ICD Codes: I10 - Essential (primary) hypertension SNOMED: 77342988 (8) Chronic vegetative state ICD Codes: R40.3 - Persistent vegetative state SNOMED: 25676200 (9) Chronic respiratory failure ICD Codes: J96.10 - Chronic respiratory failure, unspecified whether with hypoxia or hypercapnia SNOMED: 09856355 (10) Limited mobility ICD Codes: Z74.09 - Other reduced mobility SNOMED: 7268943 Status: stable, progressing Assessment/Plan: vent prn resp rx suctioning as needed wean per pulm gt feeds monitor for vomiting bowel regime reglan monitor residuals cont keppra for szs iv abx per ID ivf per renal transfuse- message left with dtr to call me for update dc planning on hold Subjective ROS Limited/Unobtainable: No Constitutional: Reports: malaise, weakness HEENT: Reports: no symptoms Cardiovascular: Reports: no symptoms Respiratory: Reports: no symptoms Gastrointestinal/Abdominal: Reports: nausea, vomiting Genitourinary: Reports: no symptoms Neurologic/Psychiatric: Reports: pre-existing deficit, seizure Endocrine: Reports: no symptoms Hematologic/Lymphatic: Reports: no symptoms Allergies: Coded Allergies: CODEINE (Verified Allergy, Unknown, HIVES, 09/15/09) All Systems: reviewed and negative except above Subjective no events. no vomiting. on ivf. tolerating feeds. currently npo for abd US. decrease h/h noted. on iv abx for uti/pna. on the vent. decrease h/h noted. no bleeding Objective Last 24 Hour Vital Signs Date Time Temp Pulse Resp B/P (MAP) Pulse Ox O2 Delivery O2 Flow Rate FiO2 02/12/19 10:49 77 14 99 Mechanical Ventilator 30 77 14 30 02/12/19 09:00 78 14 30 02/12/19 08:11 79 128/71 02/12/19 08:00 77 02/12/19 08:00 30 02/12/19 08:00 97.7 79 14 128/71 (90) 100 02/12/19 08:00 Mechanical Ventilator 02/12/19 07:23 75 14 100 Mechanical Ventilator 30 76 14 30 02/12/19 07:22 100 Mechanical Ventilator 30 02/12/19 05:26 76 16 30 02/12/19 04:00 98.3 74 14 131/62 (85) 100 02/12/19 04:00 30 02/12/19 04:00 Mechanical Ventilator 02/12/19 03:48 78 02/12/19 03:07 71 16 100 Mechanical Ventilator 30 79 14 30 02/12/19 01:00 74 16 Mechanical Ventilator 30 02/12/19 00:01 76 14 100 Mechanical Ventilator 30 76 14 30 02/12/19 00:00 30 02/12/19 00:00 97.7 84 23 113/77 (89) 99 02/12/19 00:00 Mechanical Ventilator 02/11/19 23:42 80 02/11/19 21:00 76 16 Mechanical Ventilator 30 02/11/19 20:34 84 154/73 02/11/19 20:00 Mechanical Ventilator 02/11/19 20:00 30 02/11/19 20:00 97.9 84 18 154/73 (100) 100 02/11/19 19:07 82 02/11/19 19:00 77 18 100 Mechanical Ventilator 30 77 18 30 02/11/19 19:00 100 Mechanical Ventilator 30 02/11/19 17:56 83 18 30 02/11/19 16:00 98.0 83 14 141/76 (97) 100 02/11/19 16:00 83 02/11/19 16:00 Mechanical Ventilator 02/11/19 16:00 30 02/11/19 15:15 89 14 100 Mechanical Ventilator 30 86 14 30 02/11/19 12:41 81 14 30 02/11/19 12:00 98.2 88 17 138/68 (91) 100 02/11/19 12:00 Mechanical Ventilator 02/11/19 12:00 30 Intake and Output 02/11/19 02/12/19 19:00 07:00 Intake Total 470 ml 898.75 ml Output Total 400 ml Balance 470 ml 498.75 ml Free Water 250 ml 50 ml IV Total 768.75 ml Tube Feeding 220 ml 80 ml Output Urine Total 400 ml # Voids 3 3 # Bowel Movements 4 1 Laboratory Tests 02/12/19 04:20: White Blood Count 8.2, Red Blood Count 2.86L, Hemoglobin 7.5L, Hematocrit 24.2L , Mean Corpuscular Volume 85, Mean Corpuscular Hemoglobin 26.3L, Mean Corpuscular Hemoglobin Concent 31.0L, Red Cell Distribution Width 16.4H, Platelet Count 282, Mean Platelet Volume 4.9L, Neutrophils (%) (Auto) , Lymphocytes (%) (Auto) , Monocytes (%) (Auto) , Eosinophils (%) (Auto) , Basophils (%) (Auto) , Differential Total Cells Counted 100, Neutrophils % ( Manual) 69, Lymphocytes % (Manual) 16L, Monocytes % (Manual) 4, Eosinophils % ( Manual) 11H, Basophils % (Manual) 0, Band Neutrophils 0, Platelet Estimate Adequate, Platelet Morphology Normal, Sodium Level 138, Potassium Level 3.1L, Chloride Level 103, Carbon Dioxide Level 24, Anion Gap 11, Blood Urea Nitrogen 10, Creatinine 1.7H, Estimat Glomerular Filtration Rate , Glucose Level 76, Calcium Level 8.3L, Phosphorus Level 4.3, Magnesium Level 1.5L, Total Bilirubin 0.3, Aspartate Amino Transf (AST/SGOT) 58H, Alanine Aminotransferase (ALT/SGPT) 45, Alkaline Phosphatase 328H, Pro-B-Type Natriuretic Peptide 956H, Total Protein 7.0, Albumin 1.8L, Globulin 5.2, Albumin/Globulin Ratio 0.3L Height (Feet): 5 Height (Inches): 5.00 Weight (Pounds): 180 Objective General Appearance: WD/WN, confused Neck: supple Cardiovascular: normal rate, regular rhythm Respiratory/Chest: chest wall non-tender, rhonchi - bilaterally Abdomen: normal bowel sounds, non tender, soft, no organomegaly Edema: no edema noted Arm (L), no edema noted Arm (R), no edema noted Leg (L), no edema noted Leg (R), no edema noted Pedal (L), no edema noted Pedal (R), no edema noted Generalized Neurologic: disoriented, unresponsive, aphasia Irvin Beltrán MD Feb 12, 2019 12:01
--- NOTE | 2019-02-12 12:49 | NUR ---
NURSE NOTES: Daughter of patient, Cici, called to unit, spoke with monorail charger operator. Per daughter, she spoke with Dr. Beltrán, will hold giving blood transfusion at the mean time. had ordered repeat CBC at 1800.
--- NOTE | 2019-02-12 13:15 | NUR ---
CASE MANAGEMENT:REVIEW 02/12/19 SI: SEPSIS. [facility] PNA SACRAL DECUB. CHRONIC RESP FAILURE 98.0 81 14 137/71 100% ON VENT SUPPORT 30% FIO2 H/H-7.5/24.2 K-3.1 CR+1.7 IS: IV MAG SULFATE Q1HRS X4 IV KCL Q1HRS X4 IV ROCEPHIN Q24 IV PROTONIX Q12 LOPRESSOR GT Q12 IVF@75/HR MUCOMYST HHN Q4HRS KEPPRA GT Q12 HEPARIN SQ Q12 : STEP DOWN UNIT DCP: FROM [facility]: DAUGHTER DOESN'T WANT PATIENT TO RETURN TO [place] REFERRED TO [facility] ~ NEITHER ACCEPTED
--- NOTE | 2019-02-12 13:27 | NUR ---
DISCHARGE PLANNING [facility] STILL NOT WILLING TO ACCEPT THIS PATIENT D/T [facility] ~ COLONIZED OR NOT [facility] DOES NOT HAVE ANY BEDS AVAILABLE [facility] ACCEPTED PATIENT BUT DAUGHTER DECLINED SINCE PATIENT'S AT THERE REFERRED TO [facility]" FOR POSSIBLE CONGREGATE OPTION
[2019-02-12] MEDS: cefTRIAXone 1 GM in D5W 55 ML IVPB SCH (14:13)
[2019-02-12 16:00] VITALS: BP 124/64
[2019-02-12 19:04] LABS: HEMATOCRIT 24.1 % (37.0-47.0); HEMOGLOBIN 7.8 G/DL (12.0-16.0); MEAN CORPUSCULAR VOLUME 82 FL (80-99); PLATELET COUNT 244 K/UL (150-450); RED BLOOD COUNT 2.92 M/UL (4.20-5.40); RED CELL DISTRIBUTION WIDTH 14.4 % (11.6-14.8); WHITE BLOOD COUNT 7.1 K/UL (4.8-10.8)
--- NOTE | 2019-02-12 19:23 | NUR ---
HAND-OFF: Report given to JEANNINE Marion.
--- NOTE | 2019-02-12 19:35 | NUR ---
NURSE NOTES: received patient from JEANNINE Santos. patient is observed in bed, obtunded, unable to make needs known. no s/sx of pain noted at this time. vent to trach settings are as follows: Shiley: 6, AC:14, TV: 450, FiO2: 35%, PEEP: 5. tolerating well; no s/sx of respiratory distress at this time. monitoring coordinator shows NSR at this time, current heart rate of 80 noted; no acute cardiac distress noted. Purewick draining light fernando urine. G-tube site is patent and intact, running Glucerna 1.5 @ 20 cc/hr. HOB elevated, no residual noted. JOSY PICC noted, patent and running D5NS at 75cc/hr. dressing dry and intact. bed in lowest position and locked, padded siderails up X3, call light within reach. will continue to monitor.
[2019-02-12 20:00] VITALS: BP 141/71
--- NOTE | 2019-02-12 20:00 | Progress Note ---
DATE: 02/12/2019 CARDIOLOGY PROGRESS NOTE SUBJECTIVE: No new events. Tolerating feedings, but is NPO for ultrasound. Remains on antimicrobials and full ventilator support. No signs of bleeding. Monitored rhythm, sinus. OBJECTIVE: VITAL SIGNS: Blood pressure 128/71, pulse 79, respirations 14, and afebrile. NECK: Thin trach secretions. LUNGS: Few rhonchi. CARDIAC: Regular rhythm and rate. Normal S1, S2 with a fourth heart sound. ABDOMEN: Soft. G-tube intact. EXTREMITIES: No edema. LABORATORY DATA: White count 8.2, hemoglobin 7.5. Potassium 3.1, BUN 10, creatinine 1.7. Magnesium 1.5. Pro-natriuretic peptide 956. Albumin 1.8. IMPRESSION: 1. Respiratory failure. 2. Anemia. 3. Hypokalemia. 4. Hypomagnesemia. 5. Hypertensive heart disease. 6. Acute on chronic diastolic congestive heart failure. 7. Acute on chronic renal failure, improved. PLAN: 1. Replace potassium and magnesium. 2. Follow up ultrasound results. 3. Resume feedings subsequently. 4. Promotility agents as needed. 5. Ventilator support. 6. Respiratory hygiene. 7. Hold diuresis for now, but consideration for packed red blood cell transfusion. Bg Hagen M.D. DR: IOANA JOB#: [id number] CC:
--- NOTE | 2019-02-12 20:18 | NUR ---
NURSE NOTES: left message for Dr. Beltrán regarding patient's hemoglobin of 7.8. awaiting call back.
[2019-02-12] MEDS: Dyna-Hex 2% Top Sol 2oz TOPIC SCH (20:49)
--- NOTE | 2019-02-12 22:38 | General Progress Note ---
Assessment/Plan Status: stable, progressing Assessment/Plan: Assessment - N/V - suspect due to gastroparesis - will hold off on G to J conversion per daughter request - Elevated Alk phos / LFT - CT negative - abd U/S negative - may need contrast CT or MRI to better evaluate - Anemia with OB (-) stools - Resp failure, s/p Trach - dysphagia, s/p PEG - OBS - poor Px Recommendations - laxative PRN - continue TF - aspiration precautions - elevate HOB - may need contrast CT or MRI (latter difficult on vent and in MRI trailer) - PPI - Elevate HOB Subjective Allergies: Coded Allergies: CODEINE (Verified Allergy, Unknown, HIVES, 09/15/09) Subjective Seen earlier today was NPO for Ultrasound Objective Last 24 Hour Vital Signs Date Time Temp Pulse Resp B/P (MAP) Pulse Ox O2 Delivery O2 Flow Rate FiO2 02/12/19 21:13 81 24 30 02/12/19 20:50 76 141/71 02/12/19 20:00 98.2 79 14 141/71 (94) 100 02/12/19 19:21 92 27 30 02/12/19 19:21 100 Mechanical Ventilator 30 02/12/19 17:00 74 14 30 02/12/19 16:00 Mechanical Ventilator 02/12/19 16:00 97.9 79 14 124/64 (84) 100 02/12/19 16:00 80 02/12/19 16:00 30 02/12/19 15:23 78 14 99 Mechanical Ventilator 30 82 14 30 02/12/19 14:08 75 14 30 02/12/19 12:00 98.0 81 14 137/71 (93) 100 02/12/19 12:00 Mechanical Ventilator 02/12/19 12:00 30 02/12/19 11:43 77 02/12/19 10:49 77 14 99 Mechanical Ventilator 30 77 14 30 02/12/19 09:00 78 14 30 02/12/19 08:11 79 128/71 02/12/19 08:00 77 02/12/19 08:00 30 02/12/19 08:00 97.7 79 14 128/71 (90) 100 02/12/19 08:00 Mechanical Ventilator 02/12/19 07:23 75 14 100 Mechanical Ventilator 30 76 14 30 02/12/19 07:22 100 Mechanical Ventilator 30 02/12/19 05:26 76 16 30 02/12/19 04:00 98.3 74 14 131/62 (85) 100 02/12/19 04:00 30 02/12/19 04:00 Mechanical Ventilator 02/12/19 03:48 78 02/12/19 03:07 71 16 100 Mechanical Ventilator 30 79 14 30 02/12/19 01:00 74 16 Mechanical Ventilator 30 02/12/19 00:01 76 14 100 Mechanical Ventilator 30 76 14 30 02/12/19 00:00 30 02/12/19 00:00 97.7 84 23 113/77 (89) 99 02/12/19 00:00 Mechanical Ventilator 02/11/19 23:42 80 Intake and Output 02/11/19 02/12/19 19:00 07:00 Intake Total 470 ml 898.75 ml Output Total 400 ml Balance 470 ml 498.75 ml Free Water 250 ml 50 ml IV Total 768.75 ml Tube Feeding 220 ml 80 ml Output Urine Total 400 ml # Voids 3 3 # Bowel Movements 4 1 Laboratory Tests 02/12/19 04:20: White Blood Count 8.2, Red Blood Count 2.86L, Hemoglobin 7.5L, Hematocrit 24.2L , Mean Corpuscular Volume 85, Mean Corpuscular Hemoglobin 26.3L, Mean Corpuscular Hemoglobin Concent 31.0L, Red Cell Distribution Width 16.4H, Platelet Count 282, Mean Platelet Volume 4.9L, Neutrophils (%) (Auto) , Lymphocytes (%) (Auto) , Monocytes (%) (Auto) , Eosinophils (%) (Auto) , Basophils (%) (Auto) , Differential Total Cells Counted 100, Neutrophils % ( Manual) 69, Lymphocytes % (Manual) 16L, Monocytes % (Manual) 4, Eosinophils % ( Manual) 11H, Basophils % (Manual) 0, Band Neutrophils 0, Platelet Estimate Adequate, Platelet Morphology Normal, Sodium Level 138, Potassium Level 3.1L, Chloride Level 103, Carbon Dioxide Level 24, Anion Gap 11, Blood Urea Nitrogen 10, Creatinine 1.7H, Estimat Glomerular Filtration Rate , Glucose Level 76, Calcium Level 8.3L, Phosphorus Level 4.3, Magnesium Level 1.5L, Total Bilirubin 0.3, Aspartate Amino Transf (AST/SGOT) 58H, Alanine Aminotransferase (ALT/SGPT) 45, Alkaline Phosphatase 328H, Pro-B-Type Natriuretic Peptide 956H, Total Protein 7.0, Albumin 1.8L, Globulin 5.2, Albumin/Globulin Ratio 0.3L 02/12/19 18:40: White Blood Count 7.1, Red Blood Count 2.92L, Hemoglobin 7.8L, Hematocrit 24.1L , Mean Corpuscular Volume 82, Mean Corpuscular Hemoglobin 26.7L, Mean Corpuscular Hemoglobin Concent 32.3, Red Cell Distribution Width 14.4, Platelet Count 244, Mean Platelet Volume 4.7L, Neutrophils (%) (Auto) , Lymphocytes (%) ( Auto) , Monocytes (%) (Auto) , Eosinophils (%) (Auto) , Basophils (%) (Auto) , Differential Total Cells Counted 100, Neutrophils % (Manual) 68, Lymphocytes % ( Manual) 23, Monocytes % (Manual) 2, Eosinophils % (Manual) 6H, Basophils % ( Manual) 1, Band Neutrophils 0, Platelet Estimate Adequate, Platelet Morphology Normal, Hypochromasia 1+, Anisocytosis 1+ Height (Feet): 5 Height (Inches): 5.00 Weight (Pounds): 180 Objective Debilitated AA woman NCAT (+) trach coarse ronchi RR obese abd Celio Vaughan MD Feb 12, 2019 22:38
[2019-02-13] VITALS (7 sets, daily range): BP systolic 125–156; BP diastolic 63–74
[2019-02-13] MEDS: Albuterol/Ipratropium 3ml neb HHN PRN ×6 (02:40→23:08)
[2019-02-13 04:20] LABS: HEMATOCRIT 23.7 % (37.0-47.0); HEMOGLOBIN 7.4 G/DL (12.0-16.0); MEAN CORPUSCULAR VOLUME 84 FL (80-99); PLATELET COUNT 288 K/UL (150-450); RED BLOOD COUNT 2.81 M/UL (4.20-5.40); RED CELL DISTRIBUTION WIDTH 16.9 % (11.6-14.8); WHITE BLOOD COUNT 7.7 K/UL (4.8-10.8)
[2019-02-13 04:45] LABS: ALANINE AMINOTRANSFERASE 39 U/L (12-78); ALBUMIN 1.8 G/DL (3.4-5.0); ALBUMIN/GLOBULIN RATIO 0.4 (1.0-2.7); ALKALINE PHOSPHATASE 308 U/L (46-116); ANION GAP 9 mmol/L (5-15); ASPARTATE AMINO TRANSFERASE 41 U/L (15-37); BILIRUBIN,TOTAL 0.2 MG/DL (0.2-1.0); BLOOD UREA NITROGEN 10 mg/dL (7-18); CALCIUM 8.6 MG/DL (8.5-10.1); CARBON DIOXIDE 25 MMOL/L (21-32); CHLORIDE 109 MMOL/L (98-107); CREATININE 1.5 MG/DL (0.55-1.30); POTASSIUM 3.7 MMOL/L (3.5-5.1); SODIUM 142 MMOL/L (136-145)
--- NOTE | 2019-02-13 05:44 | NUR ---
NURSE NOTES: Dr. Beltrán saw patient this morning. informed him of patient's hemoglobin level of 7.4. per Dr. Beltrán, he will discuss plan of care with patient's daughter.
--- NOTE | 2019-02-13 07:26 | NUR ---
NURSE NOTES: Received report from JEANNINE Marion. Patient is resting in bed, in stable condition. No s/sx of SOB, breathing is even and unlabored, vent settings are as ordered. Per night nurse, Dr. Beltrán made rounds this morning and made aware of Hgb of 7.4, per Dr. Beltrán will still need to discuss with daughter regarding transfusion. Noted. Observed no presence of pain or discomfort at this time. Bed is in lowest position, brakes engaged. Call light is kept within easy reach. Will continue to monitor patient.
--- NOTE | 2019-02-13 07:28 | NUR ---
RESPIRATORY NOTE: Received pt on vent: AC 14-450ml-30%-peep 5. Pt is trach dependent with Shiley, cuffed size 6.0, secured by trach tie/guard. Pt is obtunded, unable to follow commands. No SOB or resp distress noted at this time. Man rhonchi heard upon auscultation, suctioned moderate amounts of thick boles white secretions without incidents. Breathing tx given without any adverse reactions. Alarms are set and audible, vent is plugged into the red outlet, ambu bag is at bedside. Will continue to monitor and suction q2h and as needed.
--- NOTE | 2019-02-13 08:02 | NUR ---
HAND-OFF: Report given to Ronn Anderson RN. patient is in stable condition.
[2019-02-13] MEDS: Docusate 100mg/10ml Liq GT SCH ×3 (08:33→18:18)
[2019-02-13] MEDS: Pantoprazole Inj IVP SCH ×2 (08:33→20:34)
[2019-02-13] MEDS: Ascorbic Acid 500mg tab GT SCH (08:33)
[2019-02-13] MEDS: levETIRAcetam 500mg/5ml Liquid GT SCH ×2 (08:33→20:33)
[2019-02-13] MEDS: Heparin 5000 units/ml inj SUBQ SCH ×2 (08:34→20:26)
--- NOTE | 2019-02-13 09:15 | Infectious Diseases Prog Note ---
Assessment/Plan Assessment/Plan A 1. Acinetobacter, pseudomonas & Klebsiella pneumonia treated 2. respiratory failure 3. hypertension 4. CVA 5. dementia 6. sacral decubitus ulcer 7. rectal VRE colonization 8. Anemia 9. Proteus UTI 10. Acute renal failure P 1. continue Rocephin X 3 days Subjective ROS Limited/Unobtainable: Yes Constitutional: Denies: fever Allergies: Coded Allergies: CODEINE (Verified Allergy, Unknown, HIVES, 09/15/09) Objective Vital Signs Last 24 Hour Vital Signs Date Time Temp Pulse Resp B/P (MAP) Pulse Ox O2 Delivery O2 Flow Rate FiO2 02/13/19 08:45 85 16 30 02/13/19 08:33 83 141/67 02/13/19 08:00 Mechanical Ventilator 02/13/19 08:00 98.1 83 15 141/67 (91) 100 02/13/19 08:00 30 02/13/19 07:28 79 14 100 Mechanical Ventilator 30 86 15 30 02/13/19 05:14 87 22 30 02/13/19 04:00 Mechanical Ventilator 02/13/19 04:00 30 02/13/19 04:00 77 02/13/19 04:00 99.0 90 15 156/72 (100) 99 02/13/19 02:41 78 18 100 Mechanical Ventilator 30 78 18 30 02/13/19 01:05 77 14 30 02/13/19 00:00 77 02/13/19 00:00 99.2 77 14 125/63 (83) 100 02/13/19 00:00 Mechanical Ventilator 02/12/19 23:29 74 14 100 Mechanical Ventilator 30 02/12/19 23:27 74 14 100 Mechanical Ventilator 30 74 14 30 02/12/19 21:13 81 24 30 02/12/19 20:50 76 141/71 02/12/19 20:00 30 02/12/19 20:00 80 02/12/19 20:00 98.2 79 14 141/71 (94) 100 02/12/19 20:00 Mechanical Ventilator 02/12/19 19:21 92 27 30 02/12/19 19:21 100 Mechanical Ventilator 30 02/12/19 17:00 74 14 30 02/12/19 16:00 Mechanical Ventilator 02/12/19 16:00 97.9 79 14 124/64 (84) 100 02/12/19 16:00 80 02/12/19 16:00 30 02/12/19 15:23 78 14 99 Mechanical Ventilator 30 82 14 30 02/12/19 14:08 75 14 30 02/12/19 12:00 98.0 81 14 137/71 (93) 100 02/12/19 12:00 Mechanical Ventilator 02/12/19 12:00 30 02/12/19 11:43 77 02/12/19 10:49 77 14 99 Mechanical Ventilator 30 77 14 30 Height (Feet): 5 Height (Inches): 5.00 Weight (Pounds): 180 General Appearance: no acute distress HEENT: status post trach Respiratory/Chest: lungs clear, other - on ventilator Cardiovascular: normal rate, other - R arm PICC line Abdomen: soft, non tender, other - GT feeding Extremities: no edema Neurologic/Psychiatric: aphasia Laboratory Tests Test 02/12/19 18:40 02/13/19 02:45 White Blood Count 7.1 K/UL (4.8-10.8) 7.7 K/UL (4.8-10.8) Red Blood Count 2.92 M/UL (4.20-5.40) L 2.81 M/UL (4.20-5.40) L Hemoglobin 7.8 G/DL (12.0-16.0) L 7.4 G/DL (12.0-16.0) L Hematocrit 24.1 % (37.0-47.0) L 23.7 % (37.0-47.0) L Mean Corpuscular Volume 82 FL (80-99) 84 FL (80-99) Mean Corpuscular Hemoglobin 26.7 PG (27.0-31.0) L 26.3 PG (27.0-31.0) L Mean Corpuscular Hemoglobin Concent 32.3 G/DL (32.0-36.0) 31.1 G/DL (32.0-36.0) L Red Cell Distribution Width 14.4 % (11.6-14.8) 16.9 % (11.6-14.8) H Platelet Count 244 K/UL (150-450) 288 K/UL (150-450) Mean Platelet Volume 4.7 FL (6.5-10.1) L 5.0 FL (6.5-10.1) L Neutrophils (%) (Auto) % (45.0-75.0) % (45.0-75.0) Lymphocytes (%) (Auto) % (20.0-45.0) % (20.0-45.0) Monocytes (%) (Auto) % (1.0-10.0) % (1.0-10.0) Eosinophils (%) (Auto) % (0.0-3.0) % (0.0-3.0) Basophils (%) (Auto) % (0.0-2.0) % (0.0-2.0) Differential Total Cells Counted 100 100 Neutrophils % (Manual) 68 % (45-75) 71 % (45-75) Lymphocytes % (Manual) 23 % (20-45) 20 % (20-45) Monocytes % (Manual) 2 % (1-10) 4 % (1-10) Eosinophils % (Manual) 6 % (0-3) H 5 % (0-3) H Basophils % (Manual) 1 % (0-2) 0 % (0-2) Band Neutrophils 0 % (0-8) 0 % (0-8) Platelet Estimate Adequate Adequate Platelet Morphology Normal Normal Hypochromasia 1+ Anisocytosis 1+ Sodium Level 142 MMOL/L (136-145) Potassium Level 3.7 MMOL/L (3.5-5.1) Chloride Level 109 MMOL/L (98-107) H Carbon Dioxide Level 25 MMOL/L (21-32) Anion Gap 9 mmol/L (5-15) Blood Urea Nitrogen 10 mg/dL (7-18) Creatinine 1.5 MG/DL (0.55-1.30) H Estimat Glomerular Filtration Rate mL/min (>60) Glucose Level 86 MG/DL (74-106) Calcium Level 8.6 MG/DL (8.5-10.1) Magnesium Level 2.2 MG/DL (1.8-2.4) Total Bilirubin 0.2 MG/DL (0.2-1.0) Aspartate Amino Transf (AST/SGOT) 41 U/L (15-37) H Alanine Aminotransferase (ALT/SGPT) 39 U/L (12-78) Alkaline Phosphatase 308 U/L (46-116) H Total Protein 6.9 G/DL (6.4-8.2) Albumin 1.8 G/DL (3.4-5.0) L Globulin 5.1 g/dL Albumin/Globulin Ratio 0.4 (1.0-2.7) L Current Medications Medications (Trade) Dose Ordered Sig/Maicol Route PRN Reason Start Time Stop Time Status Last Admin Dose Admin Acetaminophen (Tylenol) 650 mg Q4H PRN GT Mild Pain/Temp > 100.5 02/03/19 19:30 03/05/19 19:29 02/07/19 00:13 Acetylcysteine (Mucomyst) 100 mg Q4HRT HHN 02/01/19 15:00 03/03/19 12:59 02/13/19 07:13 Albuterol/ Ipratropium (Albuterol/ Ipratropium) 3 ml Q4H PRN HHN Shortness of Breath 02/12/19 20:30 02/17/19 20:29 02/13/19 07:13 Ascorbic Acid (Vitamin C) 250 mg DAILY GT 02/09/19 09:00 02/24/19 08:59 02/13/19 08:33 Atropine Sulfate (Atropine Opth Adriana) 1 drop TID SL 02/10/19 09:30 03/12/19 09:29 02/13/19 08:33 Bisacodyl (Dulcolax) 10 mg PRN PRN RECTAL Constipation 01/24/19 05:30 02/23/19 05:29 Ceftriaxone Sodium 1 gm/ Dextrose 55 ml @ 110 mls/hr Q24H IVPB 02/11/19 14:00 02/18/19 13:59 02/12/19 14:13 Chlorhexidine Gluconate (Cesilia-Hex 2%) 1 applic DAILY@2000 TOPIC 02/10/19 20:00 03/12/19 19:59 02/12/19 20:49 Dextrose/Sodium Chloride 1,000 ml @ 75 mls/hr [id number] IV 02/06/19 07:45 03/08/19 07:44 02/12/19 23:59 Docusate Sodium (Colace) 100 mg TID GT 02/08/19 18:00 02/23/19 05:29 02/13/19 08:33 Heparin Sodium (Porcine) (Heparin 5000 units/ml) 5,000 units EVERY 12 HOURS SUBQ 01/24/19 09:00 02/23/19 08:59 02/12/19 08:13 Hydralazine HCl (Apresoline) 25 mg Q4H PRN GT SBP above 160 02/08/19 15:15 03/09/19 16:29 Levetiracetam (Keppra) 750 mg Q12HR GT 01/28/19 21:00 02/23/19 08:59 02/13/19 08:33 Metoclopramide HCl (Reglan) 10 mg Q6H PRN IVP Nausea & Vomiting 02/07/19 09:00 03/09/19 08:59 Metoprolol Tartrate (Lopressor) 25 mg Q12HR GT 02/07/19 01:45 03/09/19 01:44 02/13/19 08:33 Ondansetron HCl (Zofran) 4 mg Q6H PRN GT Nausea & Vomiting 01/24/19 05:30 02/23/19 05:29 02/06/19 10:30 Pantoprazole (Protonix) 40 mg Q12HR IVP 02/08/19 21:00 03/06/19 08:59 02/13/19 08:33 Chauncey Liriano MD Feb 13, 2019 09:15
--- NOTE | 2019-02-13 11:24 | Nephrology Progress Note ---
Assessment/Plan Problem List: (1) Acute renal failure (ARF) Assessment: Cr stable (2) Chronic respiratory failure (3) Anemia (4) Sepsis Assessment Acute renal failure Respiratory failure - Trach Low Mag- Low k , Low Na Anemia UTI / Sepsis Proteinuria / HypoAlbuminemia high Trigs Sz decubs bed bound DNR Plan K supplement Hydrate Urine studies avoid Nephrotoxics mag K Phos supplements as needed monitor renal parameters Subjective ROS Limited/Unobtainable: Yes Objective Objective Last 24 Hour Vital Signs Date Time Temp Pulse Resp B/P (MAP) Pulse Ox O2 Delivery O2 Flow Rate FiO2 02/13/19 10:55 76 14 100 Mechanical Ventilator 30 75 14 30 02/13/19 08:45 85 16 30 02/13/19 08:33 83 141/67 02/13/19 08:00 Mechanical Ventilator 02/13/19 08:00 80 02/13/19 08:00 98.1 83 15 141/67 (91) 100 02/13/19 08:00 30 02/13/19 07:28 79 14 100 Mechanical Ventilator 30 86 15 30 02/13/19 05:14 87 22 30 02/13/19 04:00 Mechanical Ventilator 02/13/19 04:00 30 02/13/19 04:00 77 02/13/19 04:00 99.0 90 15 156/72 (100) 99 02/13/19 02:41 78 18 100 Mechanical Ventilator 30 78 18 30 02/13/19 01:05 77 14 30 02/13/19 00:00 77 02/13/19 00:00 99.2 77 14 125/63 (83) 100 02/13/19 00:00 Mechanical Ventilator 02/12/19 23:29 74 14 100 Mechanical Ventilator 30 02/12/19 23:27 74 14 100 Mechanical Ventilator 30 74 14 30 02/12/19 21:13 81 24 30 02/12/19 20:50 76 141/71 02/12/19 20:00 30 02/12/19 20:00 80 02/12/19 20:00 98.2 79 14 141/71 (94) 100 02/12/19 20:00 Mechanical Ventilator 02/12/19 19:21 92 27 30 02/12/19 19:21 100 Mechanical Ventilator 30 02/12/19 17:00 74 14 30 02/12/19 16:00 Mechanical Ventilator 02/12/19 16:00 97.9 79 14 124/64 (84) 100 02/12/19 16:00 80 02/12/19 16:00 30 02/12/19 15:23 78 14 99 Mechanical Ventilator 30 82 14 30 02/12/19 14:08 75 14 30 02/12/19 12:00 98.0 81 14 137/71 (93) 100 02/12/19 12:00 Mechanical Ventilator 02/12/19 12:00 30 02/12/19 11:43 77 Intake and Output 02/12/19 02/13/19 19:00 07:00 Intake Total 1585 ml 1200 ml Output Total 900 ml 600 ml Balance 685 ml 600 ml Free Water 180 ml 100 ml IV Total 1285 ml 825 ml Tube Feeding 120 ml 275 ml Output Urine Total 900 ml 600 ml # Voids 1 1 Laboratory Tests 02/12/19 18:40: White Blood Count 7.1, Red Blood Count 2.92L, Hemoglobin 7.8L, Hematocrit 24.1L , Mean Corpuscular Volume 82, Mean Corpuscular Hemoglobin 26.7L, Mean Corpuscular Hemoglobin Concent 32.3, Red Cell Distribution Width 14.4, Platelet Count 244, Mean Platelet Volume 4.7L, Neutrophils (%) (Auto) , Lymphocytes (%) ( Auto) , Monocytes (%) (Auto) , Eosinophils (%) (Auto) , Basophils (%) (Auto) , Differential Total Cells Counted 100, Neutrophils % (Manual) 68, Lymphocytes % ( Manual) 23, Monocytes % (Manual) 2, Eosinophils % (Manual) 6H, Basophils % ( Manual) 1, Band Neutrophils 0, Platelet Estimate Adequate, Platelet Morphology Normal, Hypochromasia 1+, Anisocytosis 1+ 02/13/19 02:45: White Blood Count 7.7, Red Blood Count 2.81L, Hemoglobin 7.4L, Hematocrit 23.7L , Mean Corpuscular Volume 84, Mean Corpuscular Hemoglobin 26.3L, Mean Corpuscular Hemoglobin Concent 31.1L, Red Cell Distribution Width 16.9H, Platelet Count 288, Mean Platelet Volume 5.0L, Neutrophils (%) (Auto) , Lymphocytes (%) (Auto) , Monocytes (%) (Auto) , Eosinophils (%) (Auto) , Basophils (%) (Auto) , Differential Total Cells Counted 100, Neutrophils % ( Manual) 71, Lymphocytes % (Manual) 20, Monocytes % (Manual) 4, Eosinophils % ( Manual) 5H, Basophils % (Manual) 0, Band Neutrophils 0, Platelet Estimate Adequate, Platelet Morphology Normal, Sodium Level 142, Potassium Level 3.7, Chloride Level 109H, Carbon Dioxide Level 25, Anion Gap 9, Blood Urea Nitrogen 10, Creatinine 1.5H, Estimat Glomerular Filtration Rate , Glucose Level 86, Calcium Level 8.6, Magnesium Level 2.2, Total Bilirubin 0.2, Aspartate Amino Transf (AST/SGOT) 41H, Alanine Aminotransferase (ALT/SGPT) 39, Alkaline Phosphatase 308H, Total Protein 6.9, Albumin 1.8L, Globulin 5.1, Albumin/ Globulin Ratio 0.4L Height (Feet): 5 Height (Inches): 5.00 Weight (Pounds): 180 General Appearance: no apparent distress EENT: other - trach Respiratory/Chest: decreased breath sounds Abdomen: distended Eric Cortez MD Feb 13, 2019 11:24
[2019-02-13] MEDS: D5NS 1,000 ML IV SCH (12:35)
[2019-02-13] MEDS: cefTRIAXone 1 GM in D5W 55 ML IVPB SCH (14:21)
--- NOTE | 2019-02-13 14:33 | Pulmonology Progress Note ---
Assessment/Plan Assessment/Plan Pulmonary Progress Note HPI This an 83-year-old female with history of tracheostomy, VDRF, feeding tube, admitted with Pneumonia, respiratory distress. Past Medical History: VDRF, Trach, G tube, Hypertension, Cardiac disease, Dementia, Previous CVA, TIA, Seizure disorder, previous cancer Impression: Sepsis syndrome Pneumonia VDRF, Trach, G tube, Hypertension, Cardiac disease, Dementia, Previous CVA, Seizure disorder, Respiratory failure with hypoxia Anemia Sacral ulcer renal cyst Plan maintain same for now mucomyst and duoneb SNF meds as is unable to wean at present full vent support as needed Oxygen as needed Monitor labs for change changes noted Patient is a DNR. No CPR. dc planning per family and primary impression, plan, and exam edited and reviewed in detail care discussed with RN Subjective Allergies: Coded Allergies: CODEINE (Verified Allergy, Unknown, HIVES, 09/15/09) Subjective on AC on mucomyst and duoneb noted congestion supportive care noted RT care reviewed overnight care reviewed Objective Vital Signs Noted Objective WDWN NAD contracted on vent reduced breath sounds bilaterally with scattered rhonchi same [id number] without MRG NABS nontender no HSM no CC minimal nonfocal nonverbal trach and gt reviewed and edited Laboratory Tests Noted Subjective ROS Limited/Unobtainable: No Allergies: Coded Allergies: CODEINE (Verified Allergy, Unknown, HIVES, 09/15/09) Objective Last 24 Hour Vital Signs Date Time Temp Pulse Resp B/P (MAP) Pulse Ox O2 Delivery O2 Flow Rate FiO2 02/13/19 12:59 78 17 30 02/13/19 12:00 Mechanical Ventilator 02/13/19 12:00 78 02/13/19 12:00 97.5 78 16 142/74 (96) 100 02/13/19 12:00 30 02/13/19 10:55 76 14 100 Mechanical Ventilator 30 75 14 30 02/13/19 08:45 85 16 30 02/13/19 08:33 83 141/67 02/13/19 08:00 Mechanical Ventilator 02/13/19 08:00 80 02/13/19 08:00 98.1 83 15 141/67 (91) 100 02/13/19 08:00 30 02/13/19 07:28 79 14 100 Mechanical Ventilator 30 86 15 30 02/13/19 05:14 87 22 30 02/13/19 04:00 Mechanical Ventilator 02/13/19 04:00 30 02/13/19 04:00 77 02/13/19 04:00 99.0 90 15 156/72 (100) 99 02/13/19 02:41 78 18 100 Mechanical Ventilator 30 78 18 30 02/13/19 01:05 77 14 30 02/13/19 00:00 77 02/13/19 00:00 99.2 77 14 125/63 (83) 100 02/13/19 00:00 Mechanical Ventilator 02/12/19 23:29 74 14 100 Mechanical Ventilator 30 02/12/19 23:27 74 14 100 Mechanical Ventilator 30 74 14 30 02/12/19 21:13 81 24 30 02/12/19 20:50 76 141/71 02/12/19 20:00 30 02/12/19 20:00 80 02/12/19 20:00 98.2 79 14 141/71 (94) 100 02/12/19 20:00 Mechanical Ventilator 02/12/19 19:21 92 27 30 02/12/19 19:21 100 Mechanical Ventilator 30 02/12/19 17:00 74 14 30 02/12/19 16:00 Mechanical Ventilator 02/12/19 16:00 97.9 79 14 124/64 (84) 100 02/12/19 16:00 80 02/12/19 16:00 30 02/12/19 15:23 78 14 99 Mechanical Ventilator 30 82 14 30 Intake and Output 02/12/19 02/13/19 19:00 07:00 Intake Total 1585 ml 1200 ml Output Total 900 ml 600 ml Balance 685 ml 600 ml Free Water 180 ml 100 ml IV Total 1285 ml 825 ml Tube Feeding 120 ml 275 ml Output Urine Total 900 ml 600 ml # Voids 1 1 Laboratory Tests 02/12/19 18:40: White Blood Count 7.1, Red Blood Count 2.92L, Hemoglobin 7.8L, Hematocrit 24.1L , Mean Corpuscular Volume 82, Mean Corpuscular Hemoglobin 26.7L, Mean Corpuscular Hemoglobin Concent 32.3, Red Cell Distribution Width 14.4, Platelet Count 244, Mean Platelet Volume 4.7L, Neutrophils (%) (Auto) , Lymphocytes (%) ( Auto) , Monocytes (%) (Auto) , Eosinophils (%) (Auto) , Basophils (%) (Auto) , Differential Total Cells Counted 100, Neutrophils % (Manual) 68, Lymphocytes % ( Manual) 23, Monocytes % (Manual) 2, Eosinophils % (Manual) 6H, Basophils % ( Manual) 1, Band Neutrophils 0, Platelet Estimate Adequate, Platelet Morphology Normal, Hypochromasia 1+, Anisocytosis 1+ 02/13/19 02:45: White Blood Count 7.7, Red Blood Count 2.81L, Hemoglobin 7.4L, Hematocrit 23.7L , Mean Corpuscular Volume 84, Mean Corpuscular Hemoglobin 26.3L, Mean Corpuscular Hemoglobin Concent 31.1L, Red Cell Distribution Width 16.9H, Platelet Count 288, Mean Platelet Volume 5.0L, Neutrophils (%) (Auto) , Lymphocytes (%) (Auto) , Monocytes (%) (Auto) , Eosinophils (%) (Auto) , Basophils (%) (Auto) , Differential Total Cells Counted 100, Neutrophils % ( Manual) 71, Lymphocytes % (Manual) 20, Monocytes % (Manual) 4, Eosinophils % ( Manual) 5H, Basophils % (Manual) 0, Band Neutrophils 0, Platelet Estimate Adequate, Platelet Morphology Normal, Sodium Level 142, Potassium Level 3.7, Chloride Level 109H, Carbon Dioxide Level 25, Anion Gap 9, Blood Urea Nitrogen 10, Creatinine 1.5H, Estimat Glomerular Filtration Rate , Glucose Level 86, Calcium Level 8.6, Magnesium Level 2.2, Total Bilirubin 0.2, Aspartate Amino Transf (AST/SGOT) 41H, Alanine Aminotransferase (ALT/SGPT) 39, Alkaline Phosphatase 308H, Total Protein 6.9, Albumin 1.8L, Globulin 5.1, Albumin/ Globulin Ratio 0.4L Current Medications Medications (Trade) Dose Ordered Sig/Maicol Route PRN Reason Start Time Stop Time Status Last Admin Dose Admin Acetaminophen (Tylenol) 650 mg Q4H PRN GT Mild Pain/Temp > 100.5 02/03/19 19:30 03/05/19 19:29 02/07/19 00:13 Acetylcysteine (Mucomyst) 100 mg Q4HRT HHN 02/01/19 15:00 03/03/19 12:59 02/13/19 10:39 Albuterol/ Ipratropium (Albuterol/ Ipratropium) 3 ml Q4H PRN HHN Shortness of Breath 02/12/19 20:30 02/17/19 20:29 02/13/19 10:39 Ascorbic Acid (Vitamin C) 250 mg DAILY GT 02/09/19 09:00 02/24/19 08:59 02/13/19 08:33 Atropine Sulfate (Atropine Opth Adriana) 1 drop TID SL 02/10/19 09:30 03/12/19 09:29 02/13/19 12:35 Bisacodyl (Dulcolax) 10 mg PRN PRN RECTAL Constipation 01/24/19 05:30 02/23/19 05:29 Ceftriaxone Sodium 1 gm/ Dextrose 55 ml @ 110 mls/hr Q24H IVPB 02/11/19 14:00 02/18/19 13:59 02/13/19 14:21 Chlorhexidine Gluconate (Cesilia-Hex 2%) 1 applic DAILY@2000 TOPIC 02/10/19 20:00 03/12/19 19:59 02/12/19 20:49 Dextrose/Sodium Chloride 1,000 ml @ 75 mls/hr [id number] IV 02/06/19 07:45 03/08/19 07:44 02/13/19 12:35 Docusate Sodium (Colace) 100 mg TID GT 02/08/19 18:00 02/23/19 05:29 02/13/19 12:41 Heparin Sodium (Porcine) (Heparin 5000 units/ml) 5,000 units EVERY 12 HOURS SUBQ 01/24/19 09:00 02/23/19 08:59 02/12/19 08:13 Hydralazine HCl (Apresoline) 25 mg Q4H PRN GT SBP above 160 02/08/19 15:15 03/09/19 16:29 Levetiracetam (Keppra) 750 mg Q12HR GT 01/28/19 21:00 02/23/19 08:59 02/13/19 08:33 Metoclopramide HCl (Reglan) 10 mg Q6H PRN IVP Nausea & Vomiting 02/07/19 09:00 03/09/19 08:59 Metoprolol Tartrate (Lopressor) 25 mg Q12HR GT 02/07/19 01:45 03/09/19 01:44 02/13/19 08:33 Ondansetron HCl (Zofran) 4 mg Q6H PRN GT Nausea & Vomiting 01/24/19 05:30 02/23/19 05:29 02/06/19 10:30 Pantoprazole (Protonix) 40 mg Q12HR IVP 02/08/19 21:00 03/06/19 08:59 02/13/19 08:33 Bg Moffett MD Feb 13, 2019 14:33
--- NOTE | 2019-02-13 14:39 | NUR ---
CASE MANAGEMENT:REVIEW 02/13/19 SI: SEPSIS. [facility] PNA SACRAL DECUB. CHRONIC RESP FAILURE 97.5 78 16 142/74 100% ON VENT SUPPORT 30% FIO2 H/H-7.4/23.7 CR+1.5 ALB-1.8 IS: IV ROCEPHIN Q24 ATROPINE SL TID IV PROTONIX Q12 LOPRESSOR GT Q12 IVF@75/HR MUCOMYST HHN Q4HRS KEPPRA GT Q12 HEPARIN SQ Q12 : STEP DOWN UNIT DCP: FROM [facility]: DAUGHTER DOESN'T WANT PATIENT TO RETURN TO [facility] REFERRED TO [facility] ~ NEITHER ACCEPTED NEEDS TRANSFUSION TODAY
--- NOTE | 2019-02-13 15:07 | General Progress Note ---
Assessment/Plan Problem List: (1) Seizure ICD Codes: R56.9 - Unspecified convulsions SNOMED: 75945964 (2) Anemia ICD Codes: D64.9 - Anemia, unspecified SNOMED: 431046980 Qualifiers: Qualified Codes: D64.9 - Anemia, unspecified (3) Sepsis ICD Codes: A41.9 - Sepsis, unspecified organism SNOMED: 59601536, 145229032 Qualifiers: Qualified Codes: A41.9 - Sepsis, unspecified organism (4) Respiratory failure with hypoxia ICD Codes: J96.91 - Respiratory failure, unspecified with hypoxia SNOMED: 59975694003066538 Qualifiers: Qualified Codes: J96.21 - Acute and chronic respiratory failure with hypoxia (5) HCAP (healthcare-associated pneumonia) ICD Codes: J18.9 - Pneumonia, unspecified organism SNOMED: 059302421, 754299484 (6) Sacral decubitus ulcer ICD Codes: L89.159 - Pressure ulcer of sacral region, unspecified stage SNOMED: 200163818 (7) HTN (hypertension) ICD Codes: I10 - Essential (primary) hypertension SNOMED: 17995025 (8) Chronic vegetative state ICD Codes: R40.3 - Persistent vegetative state SNOMED: 91353862 (9) Chronic respiratory failure ICD Codes: J96.10 - Chronic respiratory failure, unspecified whether with hypoxia or hypercapnia SNOMED: 29591679 (10) Limited mobility ICD Codes: Z74.09 - Other reduced mobility SNOMED: 0132275 Status: stable, progressing Assessment/Plan: vent prn resp rx suctioning as needed wean per pulm gt feeds monitor for vomiting bowel regime reglan monitor residuals cont keppra for szs iv abx per ID ivf per renal transfuse- message left with dtr to call me for update dc planning on hold Subjective Allergies: Coded Allergies: CODEINE (Verified Allergy, Unknown, HIVES, 09/15/09) Subjective no events. no vomiting. on ivf. tolerating feeds. decrease h/h noted. on iv abx for uti/pna. on the vent. decrease h/h noted. no bleeding us with chronic disease. Cr improving Objective Last 24 Hour Vital Signs Date Time Temp Pulse Resp B/P (MAP) Pulse Ox O2 Delivery O2 Flow Rate FiO2 02/13/19 12:59 78 17 30 02/13/19 12:00 Mechanical Ventilator 11/15/19 12:00 78 02/13/19 12:00 97.5 78 16 142/74 (96) 100 02/13/19 12:00 30 02/13/19 10:55 76 14 100 Mechanical Ventilator 30 75 14 30 02/13/19 08:45 85 16 30 02/13/19 08:33 83 141/67 02/13/19 08:00 Mechanical Ventilator 02/13/19 08:00 80 02/13/19 08:00 98.1 83 15 141/67 (91) 100 02/13/19 08:00 30 02/13/19 07:28 79 14 100 Mechanical Ventilator 30 86 15 30 02/13/19 05:14 87 22 30 02/13/19 04:00 Mechanical Ventilator 02/13/19 04:00 30 02/13/19 04:00 77 02/13/19 04:00 99.0 90 15 156/72 (100) 99 02/13/19 02:41 78 18 100 Mechanical Ventilator 30 78 18 30 02/13/19 01:05 77 14 30 02/13/19 00:00 77 02/13/19 00:00 99.2 77 14 125/63 (83) 100 02/13/19 00:00 Mechanical Ventilator 02/12/19 23:29 74 14 100 Mechanical Ventilator 30 02/12/19 23:27 74 14 100 Mechanical Ventilator 30 74 14 30 02/12/19 21:13 81 24 30 02/12/19 20:50 76 141/71 02/12/19 20:00 30 02/12/19 20:00 80 02/12/19 20:00 98.2 79 14 141/71 (94) 100 02/12/19 20:00 Mechanical Ventilator 02/12/19 19:21 92 27 30 02/12/19 19:21 100 Mechanical Ventilator 30 02/12/19 17:00 74 14 30 02/12/19 16:00 Mechanical Ventilator 02/12/19 16:00 97.9 79 14 124/64 (84) 100 02/12/19 16:00 80 02/12/19 16:00 30 02/12/19 15:23 78 14 99 Mechanical Ventilator 30 82 14 30 Intake and Output 02/12/19 02/13/19 19:00 07:00 Intake Total 1585 ml 1200 ml Output Total 900 ml 600 ml Balance 685 ml 600 ml Free Water 180 ml 100 ml IV Total 1285 ml 825 ml Tube Feeding 120 ml 275 ml Output Urine Total 900 ml 600 ml # Voids 1 1 Laboratory Tests 02/12/19 18:40: White Blood Count 7.1, Red Blood Count 2.92L, Hemoglobin 7.8L, Hematocrit 24.1L , Mean Corpuscular Volume 82, Mean Corpuscular Hemoglobin 26.7L, Mean Corpuscular Hemoglobin Concent 32.3, Red Cell Distribution Width 14.4, Platelet Count 244, Mean Platelet Volume 4.7L, Neutrophils (%) (Auto) , Lymphocytes (%) ( Auto) , Monocytes (%) (Auto) , Eosinophils (%) (Auto) , Basophils (%) (Auto) , Differential Total Cells Counted 100, Neutrophils % (Manual) 68, Lymphocytes % ( Manual) 23, Monocytes % (Manual) 2, Eosinophils % (Manual) 6H, Basophils % ( Manual) 1, Band Neutrophils 0, Platelet Estimate Adequate, Platelet Morphology Normal, Hypochromasia 1+, Anisocytosis 1+ 02/13/19 02:45: White Blood Count 7.7, Red Blood Count 2.81L, Hemoglobin 7.4L, Hematocrit 23.7L , Mean Corpuscular Volume 84, Mean Corpuscular Hemoglobin 26.3L, Mean Corpuscular Hemoglobin Concent 31.1L, Red Cell Distribution Width 16.9H, Platelet Count 288, Mean Platelet Volume 5.0L, Neutrophils (%) (Auto) , Lymphocytes (%) (Auto) , Monocytes (%) (Auto) , Eosinophils (%) (Auto) , Basophils (%) (Auto) , Differential Total Cells Counted 100, Neutrophils % ( Manual) 71, Lymphocytes % (Manual) 20, Monocytes % (Manual) 4, Eosinophils % ( Manual) 5H, Basophils % (Manual) 0, Band Neutrophils 0, Platelet Estimate Adequate, Platelet Morphology Normal, Sodium Level 142, Potassium Level 3.7, Chloride Level 109H, Carbon Dioxide Level 25, Anion Gap 9, Blood Urea Nitrogen 10, Creatinine 1.5H, Estimat Glomerular Filtration Rate , Glucose Level 86, Calcium Level 8.6, Magnesium Level 2.2, Total Bilirubin 0.2, Aspartate Amino Transf (AST/SGOT) 41H, Alanine Aminotransferase (ALT/SGPT) 39, Alkaline Phosphatase 308H, Total Protein 6.9, Albumin 1.8L, Globulin 5.1, Albumin/ Globulin Ratio 0.4L Height (Feet): 5 Height (Inches): 5.00 Weight (Pounds): 180 Objective General Appearance: WD/WN, confused Neck: supple Cardiovascular: normal rate, regular rhythm Respiratory/Chest: chest wall non-tender, rhonchi - bilaterally Abdomen: normal bowel sounds, non tender, soft, no organomegaly Edema: no edema noted Arm (L), no edema noted Arm (R), no edema noted Leg (L), no edema noted Leg (R), no edema noted Pedal (L), no edema noted Pedal (R), no edema noted Generalized Neurologic: disoriented, unresponsive, aphasia Irvin Beltrán MD Feb 13, 2019 15:07
--- NOTE | 2019-02-13 15:28 | Surgery Progress Note ---
Surgery Progress Note Subjective Additional Comments no acute events comfortable stable Objective Last 24 Hour Vital Signs Date Time Temp Pulse Resp B/P (MAP) Pulse Ox O2 Delivery O2 Flow Rate FiO2 02/13/19 14:48 78 14 100 Mechanical Ventilator 30 76 14 30 02/13/19 12:59 78 17 30 02/13/19 12:00 Mechanical Ventilator 02/13/19 12:00 78 02/13/19 12:00 97.5 78 16 142/74 (96) 100 02/13/19 12:00 30 02/13/19 10:55 76 14 100 Mechanical Ventilator 30 75 14 30 02/13/19 08:45 85 16 30 02/13/19 08:33 83 141/67 02/13/19 08:00 Mechanical Ventilator 02/13/19 08:00 80 02/13/19 08:00 98.1 83 15 141/67 (91) 100 02/13/19 08:00 30 02/13/19 07:28 79 14 100 Mechanical Ventilator 30 86 15 30 02/13/19 05:14 87 22 30 02/13/19 04:00 Mechanical Ventilator 02/13/19 04:00 30 02/13/19 04:00 77 02/13/19 04:00 99.0 90 15 156/72 (100) 99 02/13/19 02:41 78 18 100 Mechanical Ventilator 30 78 18 30 02/13/19 01:05 77 14 30 02/13/19 00:00 77 02/13/19 00:00 99.2 77 14 125/63 (83) 100 02/13/19 00:00 Mechanical Ventilator 02/12/19 23:29 74 14 100 Mechanical Ventilator 30 02/12/19 23:27 74 14 100 Mechanical Ventilator 30 74 14 30 02/12/19 21:13 81 24 30 02/12/19 20:50 76 141/71 02/12/19 20:00 30 02/12/19 20:00 80 02/12/19 20:00 98.2 79 14 141/71 (94) 100 02/12/19 20:00 Mechanical Ventilator 02/12/19 19:21 92 27 30 02/12/19 19:21 100 Mechanical Ventilator 30 02/12/19 17:00 74 14 30 02/12/19 16:00 Mechanical Ventilator 02/12/19 16:00 97.9 79 14 124/64 (84) 100 02/12/19 16:00 80 02/12/19 16:00 30 I&O Intake and Output 02/12/19 02/13/19 19:00 07:00 Intake Total 1585 ml 1200 ml Output Total 900 ml 600 ml Balance 685 ml 600 ml Free Water 180 ml 100 ml IV Total 1285 ml 825 ml Tube Feeding 120 ml 275 ml Output Urine Total 900 ml 600 ml # Voids 1 1 Dressing: saturated Wound: other Drains: other Cardiovascular: RSR Respiratory: decreased breath sounds Abdomen: soft, present bowel sounds, non-distended Extremities: no cyanosis, other Laboratory Tests Test 02/12/19 18:40 02/13/19 02:45 White Blood Count 7.1 K/UL (4.8-10.8) 7.7 K/UL (4.8-10.8) Red Blood Count 2.92 M/UL (4.20-5.40) L 2.81 M/UL (4.20-5.40) L Hemoglobin 7.8 G/DL (12.0-16.0) L 7.4 G/DL (12.0-16.0) L Hematocrit 24.1 % (37.0-47.0) L 23.7 % (37.0-47.0) L Mean Corpuscular Volume 82 FL (80-99) 84 FL (80-99) Mean Corpuscular Hemoglobin 26.7 PG (27.0-31.0) L 26.3 PG (27.0-31.0) L Mean Corpuscular Hemoglobin Concent 32.3 G/DL (32.0-36.0) 31.1 G/DL (32.0-36.0) L Red Cell Distribution Width 14.4 % (11.6-14.8) 16.9 % (11.6-14.8) H Platelet Count 244 K/UL (150-450) 288 K/UL (150-450) Mean Platelet Volume 4.7 FL (6.5-10.1) L 5.0 FL (6.5-10.1) L Neutrophils (%) (Auto) % (45.0-75.0) % (45.0-75.0) Lymphocytes (%) (Auto) % (20.0-45.0) % (20.0-45.0) Monocytes (%) (Auto) % (1.0-10.0) % (1.0-10.0) Eosinophils (%) (Auto) % (0.0-3.0) % (0.0-3.0) Basophils (%) (Auto) % (0.0-2.0) % (0.0-2.0) Differential Total Cells Counted 100 100 Neutrophils % (Manual) 68 % (45-75) 71 % (45-75) Lymphocytes % (Manual) 23 % (20-45) 20 % (20-45) Monocytes % (Manual) 2 % (1-10) 4 % (1-10) Eosinophils % (Manual) 6 % (0-3) H 5 % (0-3) H Basophils % (Manual) 1 % (0-2) 0 % (0-2) Band Neutrophils 0 % (0-8) 0 % (0-8) Platelet Estimate Adequate Adequate Platelet Morphology Normal Normal Hypochromasia 1+ Anisocytosis 1+ Sodium Level 142 MMOL/L (136-145) Potassium Level 3.7 MMOL/L (3.5-5.1) Chloride Level 109 MMOL/L (98-107) H Carbon Dioxide Level 25 MMOL/L (21-32) Anion Gap 9 mmol/L (5-15) Blood Urea Nitrogen 10 mg/dL (7-18) Creatinine 1.5 MG/DL (0.55-1.30) H Estimat Glomerular Filtration Rate mL/min (>60) Glucose Level 86 MG/DL (74-106) Calcium Level 8.6 MG/DL (8.5-10.1) Magnesium Level 2.2 MG/DL (1.8-2.4) Total Bilirubin 0.2 MG/DL (0.2-1.0) Aspartate Amino Transf (AST/SGOT) 41 U/L (15-37) H Alanine Aminotransferase (ALT/SGPT) 39 U/L (12-78) Alkaline Phosphatase 308 U/L (46-116) H Total Protein 6.9 G/DL (6.4-8.2) Albumin 1.8 G/DL (3.4-5.0) L Globulin 5.1 g/dL Albumin/Globulin Ratio 0.4 (1.0-2.7) L Plan Problems: (1) Sacral decubitus ulcer Assessment & Plan: This is a 83-year-old female with multiple medical committees that is currently admitted for medical care and management and identified to have multiple wounds requiring care. On admission patient noted to have a resolved sacral decubitus ulcer. Has had prior care and is well-healed at this time. Will ensure it does not open up again. Patient has a right ischial decubitus ulcer that is resolved. Scar intact and well formed. Will monitor to ensure it does not open up again. Patient has a left ischial decubitus ulcer that can be identified to be stage IV with palpable bone that has been resolving as noted by the periwound tissue and scar but open area approximately 1 cm x 1.5 cm few millimeters deep to bone identified. Unsure if this is been to be completely healed prior and has since opened or if has been healing at this level. No foul odor no drainage was unsure local wound care until healed Bilateral heels soft without signs of injury Resolving pressure injury L ischium(L)1.8cm x (W)1cm.Scattered biofilm at base of wound. Edges flat and adherent with surrounding hyperpigmentation. No odor or exudate noted. Sacrum is pale pink with surrounding hyperpigmentation. Hyperpigmentation R ischium with small sheared area centrally.No areas of erythema or exudate noted. Both heels are soft but blanchable. Skin Assessed under collar of trach and no evidence of skin breakdown noted. All wound Tx. are effective and continued as ordered. Pt ahs an APM/Belén mattress overlay and is being repositioned per protocols and per tolerance.No new skin concerns noted. Treatment plan: Please apply skin protectant and optifoam to sacral area. Change every 3 days Please apply skin protectant and optifoam to right ischial area. Change every 3 days Please apply Thera honey infused gauze to small opening in the left ischial wound bed followed by skin protectant in the periwound and up to foam. Change daily as needed saturation Apply Xeroform and dressing over left hand blister. Offload pressure from heels with pillow Air soft mattress Turn every 2 hours Nutritional optimization We will monitor follow with recommendations (2) Sepsis Assessment & Plan: IV abx as per ID trend labs improving wounds unlikely etiology likely respiratory imaging noted and okay abnormal lft's stable PICC on Abx improved (3) Feeding by G-tube Assessment & Plan: DAILY ESTIMATED NEEDS: Needs based on Pulmonary, wounds, bedbound/ 60kg adj 25-28 kcals/kg 1505-5905 total kcals 1.25-2 g protein/kg 75-120 g total protein 25-30 mL/kg 0319-7414 total fluid mLs NUTRITION DIAGNOSIS: * Swallowing difficulty R/T respiratory status as evidenced by pt on T-collar, now back the vent, PEG dep, TF held at this time due to episodes of vomiting. * Increased kcal/prot needs R/T wound healing as evidenced by BL buttocks and sacral wound photos, refer to eval. CURRENT TF:Jevity 1.2 @ 40ml/hr x 24 hrs -> TF ORDER DC'ED THIS AM ENTERAL NUTRITION RECOMMENDATIONS: Osmolite 1.2 @ 55ml/hr x 24 hrs + Prosource 1pkt QD to provide 1320ml, 1584kcal , 73g +11g prot, 1060ml free water - Once medically appropriate to resume TF, rec to initiate isotonic formula of Osmolite 1.2 for possible improved tolerance - Initiate Osmolite 1.2 @ 25ml/hr x 6hrs, advance 10ml q 4-6 hrs as tolerated to goal rate - W/ good TF tolerance at goal, add Prosource 1pkt daily to meet protein needs - Flush per MD/ HOB over 30 degrees ADDITIONAL RECOMMENDATIONS: 1) Re-calibrated bedscale wt for accurate CBW 2) Wound healing: Add Cristian 1pkt BID + MVI x 1 Pt w/ full thickness resolving wound 3) Monitor lytes, replete as needed 4) Monitor NPO status, ability to resume TF. -> held on and off due to vomitting since 02/02, TF dc'ed on 02/06. (4) Chronic vegetative state Assessment & Plan: incontinence of urine and stool. can soil dressings. nurses doing great job with monitoring and changing prn (5) Leukocytosis Walter Madera Feb 13, 2019 15:28
--- NOTE | 2019-02-13 19:20 | NUR ---
NURSE NOTES: Pt report received from Gage Olson day shift RN SDU. pt remains stable. pt is obtunded neuro [place]. pt is on tank farm gauger showing NSR, no distress noted. pt is a trach to vent satting at 100% no distress noted. bed is low, locked, armed, bed rails up times 3, bed rails padded, call light within easy reach. will continue plan of care.
--- NOTE | 2019-02-13 19:29 | NUR ---
HAND-OFF: Report given to Yodit Nichols RN.
[2019-02-13] MEDS: Dyna-Hex 2% Top Sol 2oz TOPIC SCH (20:33)
--- NOTE | 2019-02-13 23:27 | General Progress Note ---
Assessment/Plan Status: stable, progressing Assessment/Plan: Assessment - N/V - suspect due to gastroparesis - better today - will hold off on G to J conversion per daughter request - Elevated Alk phos / LFT - CT negative - abd U/S negative - may need contrast CT or MRI to better evaluate - Anemia with OB (-) stools - Resp failure, s/p Trach - dysphagia, s/p PEG - OBS - poor Px Recommendations - laxative PRN - continue TF - aspiration precautions - elevate HOB - may need contrast CT or MRI (latter difficult on vent and in MRI trailer) - PPI - Elevate HOB Subjective Allergies: Coded Allergies: CODEINE (Verified Allergy, Unknown, HIVES, 09/15/09) Subjective Seen earlier today tolerating TF Objective Last 24 Hour Vital Signs Date Time Temp Pulse Resp B/P (MAP) Pulse Ox O2 Delivery O2 Flow Rate FiO2 02/13/19 23:08 77 15 100 Mechanical Ventilator 45.0 30 80 16 30 02/13/19 20:42 77 16 30 02/13/19 20:34 98 161/78 02/13/19 20:00 Mechanical Ventilator 02/13/19 20:00 97.9 83 15 154/70 (98) 100 02/13/19 20:00 30 02/13/19 20:00 74 02/13/19 19:00 77 14 100 Mechanical Ventilator 45.0 30 80 14 30 02/13/19 16:58 80 14 100 Mechanical Ventilator 30 76 14 30 02/13/19 16:00 77 02/13/19 16:00 30 02/13/19 16:00 Mechanical Ventilator 02/13/19 15:47 97.9 80 16 136/66 (89) 100 02/13/19 14:48 78 14 100 Mechanical Ventilator 30 76 14 30 02/13/19 12:59 78 17 30 02/13/19 12:00 Mechanical Ventilator 02/13/19 12:00 78 02/13/19 12:00 97.5 78 16 142/74 (96) 100 02/13/19 12:00 30 02/13/19 10:55 76 14 100 Mechanical Ventilator 30 75 14 30 02/13/19 08:45 85 16 30 02/13/19 08:33 83 141/67 02/13/19 08:00 Mechanical Ventilator 02/13/19 08:00 80 02/13/19 08:00 98.1 83 15 141/67 (91) 100 02/13/19 08:00 30 02/13/19 07:28 79 14 100 Mechanical Ventilator 30 86 15 30 02/13/19 05:14 87 22 30 02/13/19 04:00 Mechanical Ventilator 02/13/19 04:00 30 02/13/19 04:00 77 02/13/19 04:00 99.0 90 15 156/72 (100) 99 02/13/19 02:41 78 18 100 Mechanical Ventilator 30 78 18 30 02/13/19 01:05 77 14 30 02/13/19 00:00 77 02/13/19 00:00 99.2 77 14 125/63 (83) 100 02/13/19 00:00 Mechanical Ventilator 02/12/19 23:29 74 14 100 Mechanical Ventilator 30 02/12/19 23:27 74 14 100 Mechanical Ventilator 30 74 14 30 Intake and Output 02/12/19 02/13/19 19:00 07:00 Intake Total 1585 ml 1230 ml Output Total 900 ml 600 ml Balance 685 ml 630 ml Free Water 180 ml 100 ml IV Total 1285 ml 825 ml Tube Feeding 120 ml 305 ml Output Urine Total 900 ml 600 ml # Voids 1 1 Laboratory Tests 02/13/19 02:45: White Blood Count 7.7, Red Blood Count 2.81L, Hemoglobin 7.4L, Hematocrit 23.7L , Mean Corpuscular Volume 84, Mean Corpuscular Hemoglobin 26.3L, Mean Corpuscular Hemoglobin Concent 31.1L, Red Cell Distribution Width 16.9H, Platelet Count 288, Mean Platelet Volume 5.0L, Neutrophils (%) (Auto) , Lymphocytes (%) (Auto) , Monocytes (%) (Auto) , Eosinophils (%) (Auto) , Basophils (%) (Auto) , Differential Total Cells Counted 100, Neutrophils % ( Manual) 71, Lymphocytes % (Manual) 20, Monocytes % (Manual) 4, Eosinophils % ( Manual) 5H, Basophils % (Manual) 0, Band Neutrophils 0, Platelet Estimate Adequate, Platelet Morphology Normal, Sodium Level 142, Potassium Level 3.7, Chloride Level 109H, Carbon Dioxide Level 25, Anion Gap 9, Blood Urea Nitrogen 10, Creatinine 1.5H, Estimat Glomerular Filtration Rate , Glucose Level 86, Calcium Level 8.6, Magnesium Level 2.2, Total Bilirubin 0.2, Aspartate Amino Transf (AST/SGOT) 41H, Alanine Aminotransferase (ALT/SGPT) 39, Alkaline Phosphatase 308H, Total Protein 6.9, Albumin 1.8L, Globulin 5.1, Albumin/ Globulin Ratio 0.4L Height (Feet): 5 Height (Inches): 5.00 Weight (Pounds): 180 Objective Debilitated AA woman NCAT (+) trach coarse ronchi RR obese abd Celio Vaughan MD Feb 13, 2019 23:27
[2019-02-14] VITALS: BP 147/77
[2019-02-14] MEDS: D5NS 1,000 ML IV SCH ×2 (02:36→15:03)
[2019-02-14] MEDS: Albuterol/Ipratropium 3ml neb HHN PRN ×6 (02:44→23:04)
--- NOTE | 2019-02-14 03:45 | Progress Note ---
DATE: 02/13/2019 CARDIOLOGY PROGRESS NOTE SUBJECTIVE: The patient has required another packed red blood cell transfusion today. No new events otherwise. She is tolerating feedings. No vomiting. She remains on ventilator support. Monitored rhythm, sinus. OBJECTIVE: VITAL SIGNS: Blood pressure 142/74, pulse 78, respiratory rate 16, and afebrile. GENERAL: Thin trach secretions. LUNGS: Bilateral breath sounds with rhonchi. CARDIAC: Regular rhythm and rate. Normal S1 and S2. No new murmur. ABDOMEN: Soft with G-tube. EXTREMITIES: There is trace dependent edema. LABORATORY DATA: White count is 11.7 and hemoglobin 7.4. Magnesium 2.2, potassium 3.7, BUN 10, and creatinine 1.5. IMPRESSION: 1. Respiratory failure. 2. Acute kidney injury. 3. Severe anemia. 4. Severe protein-calorie malnutrition. 5. Acute on chronic diastolic congestive heart failure. 6. Advanced dementia. 7. Polymicrobial sepsis with recovered shock. PLAN: 1. Transfusion of packed red blood cells. 2. Ventilator support. 3. Antimicrobials. 4. Respiratory hygiene. 5. Periodic diuresis based on clinical parameters. Bg Hagen M.D. DR: GRACE JOB#: [id number] CC:
[2019-02-14 04:00] VITALS: BP 140/71
[2019-02-14 06:16] LABS: HEMATOCRIT 24.3 % (37.0-47.0); HEMOGLOBIN 7.7 G/DL (12.0-16.0); MEAN CORPUSCULAR VOLUME 84 FL (80-99); PLATELET COUNT 306 K/UL (150-450); RED BLOOD COUNT 2.87 M/UL (4.20-5.40); RED CELL DISTRIBUTION WIDTH 16.5 % (11.6-14.8); WHITE BLOOD COUNT 8.4 K/UL (4.8-10.8)
--- NOTE | 2019-02-14 07:18 | NUR ---
RESPIRATORY NOTE: received pt on vent with current settings in place. no resp distress noted. pt is trached with [id number] in place, secured via trach tie/guard. no redness or skin wounds visible. removed pt from vent at 0710 per order; vent prn. pt now on tpiece at 30% fio2. will cont to monitor.
[2019-02-14 07:20] LABS: ALANINE AMINOTRANSFERASE 30 U/L (12-78); ALBUMIN 1.9 G/DL (3.4-5.0); ALBUMIN/GLOBULIN RATIO 0.4 (1.0-2.7); ALKALINE PHOSPHATASE 291 U/L (46-116); ANION GAP 10 mmol/L (5-15); ASPARTATE AMINO TRANSFERASE 27 U/L (15-37); BILIRUBIN,TOTAL 0.2 MG/DL (0.2-1.0); BLOOD UREA NITROGEN 12 mg/dL (7-18); CALCIUM 8.3 MG/DL (8.5-10.1); CARBON DIOXIDE 24 MMOL/L (21-32); CHLORIDE 108 MMOL/L (98-107); CREATININE 1.3 MG/DL (0.55-1.30); POTASSIUM 3.6 MMOL/L (3.5-5.1); SODIUM 142 MMOL/L (136-145)
--- NOTE | 2019-02-14 07:20 | NUR ---
HAND-OFF: Report given to Joann PAEZ SDU. Pt remains stable.
--- NOTE | 2019-02-14 07:30 | NUR ---
NURSE NOTES: Report received from Fan Greene RN. Patient asleep, responsive to verbal and tactile stimuli, nonverbal, unable to follow commands and make needs known. Receiving O2 via T-piece @ 8L/min, FiO2 30%, no s/s of respiratory distress noted. GT feeding of Glucerna 1.5 running at 35 cc/hr, no residual noted. HoB elevated. Female external catheter in place and attached to low, continuous suction. Right upper arm PICC infusing D5NS @ 75 cc/hr, asymptomatic. Bed locked in lowest position with padded side rails up x 3. All needs attended to. Will continue to monitor.
[2019-02-14 08:00] VITALS: BP 125/66
--- NOTE | 2019-02-14 08:50 | NUR ---
NURSE NOTES: Hgb 7.[address] Beltrán at bedside.
[2019-02-14] MEDS: Ascorbic Acid 500mg tab GT SCH (08:58)
[2019-02-14] MEDS: Docusate 100mg/10ml Liq GT SCH ×3 (08:58→18:00)
[2019-02-14] MEDS: Pantoprazole Inj IVP SCH ×2 (08:59→23:35)
[2019-02-14] MEDS: levETIRAcetam 500mg/5ml Liquid GT SCH ×2 (08:59→23:35)
[2019-02-14] MEDS: Heparin 5000 units/ml inj SUBQ SCH ×2 (09:00→23:37)
--- NOTE | 2019-02-14 09:55 | General Progress Note ---
Assessment/Plan Problem List: (1) Seizure ICD Codes: R56.9 - Unspecified convulsions SNOMED: 05631206 (2) Anemia ICD Codes: D64.9 - Anemia, unspecified SNOMED: 966781728 Qualifiers: Qualified Codes: D64.9 - Anemia, unspecified (3) Sepsis ICD Codes: A41.9 - Sepsis, unspecified organism SNOMED: 64246980, 211785702 Qualifiers: Qualified Codes: A41.9 - Sepsis, unspecified organism (4) Respiratory failure with hypoxia ICD Codes: J96.91 - Respiratory failure, unspecified with hypoxia SNOMED: 05289581954464866 Qualifiers: Qualified Codes: J96.21 - Acute and chronic respiratory failure with hypoxia (5) HCAP (healthcare-associated pneumonia) ICD Codes: J18.9 - Pneumonia, unspecified organism SNOMED: 434121295, 266699226 (6) Sacral decubitus ulcer ICD Codes: L89.159 - Pressure ulcer of sacral region, unspecified stage SNOMED: 680614071 (7) HTN (hypertension) ICD Codes: I10 - Essential (primary) hypertension SNOMED: 68550069 (8) Chronic vegetative state ICD Codes: R40.3 - Persistent vegetative state SNOMED: 42290424 (9) Chronic respiratory failure ICD Codes: J96.10 - Chronic respiratory failure, unspecified whether with hypoxia or hypercapnia SNOMED: 37192404 (10) Limited mobility ICD Codes: Z74.09 - Other reduced mobility SNOMED: 4426367 Status: stable, progressing Assessment/Plan: vent prn as needed resp rx suctioning as needed wean per pulm gt feeds monitor for vomiting bowel regime reglan monitor residuals cont keppra for szs iv abx per ID ivf per renal transfuse dc planning Subjective ROS Limited/Unobtainable: Yes Constitutional: Reports: malaise, weakness HEENT: Reports: no symptoms Cardiovascular: Reports: no symptoms Respiratory: Reports: cough, shortness of breath, sputum Gastrointestinal/Abdominal: Reports: difficulty swallowing Genitourinary: Reports: no symptoms Neurologic/Psychiatric: Reports: pre-existing deficit, seizure Endocrine: Reports: no symptoms Hematologic/Lymphatic: Reports: anemia Allergies: Coded Allergies: CODEINE (Verified Allergy, Unknown, HIVES, 09/15/09) All Systems: reviewed and negative except above Subjective no events. on the vent on tbar. no bleeding. h/h not improved. d/w dtr- ok with transfusion Objective Last 24 Hour Vital Signs Date Time Temp Pulse Resp B/P (MAP) Pulse Ox O2 Delivery O2 Flow Rate FiO2 02/14/19 08:59 80 125/66 02/14/19 08:56 99 T-Piece 8.0 30 02/14/19 08:00 98.0 80 24 125/66 (85) 97 02/14/19 08:00 T-piece 8.0 02/14/19 08:00 8.0 30 02/14/19 07:01 68 14 100 Mechanical Ventilator 30 69 14 30 02/14/19 05:03 80 14 30 02/14/19 04:00 30 02/14/19 04:00 Mechanical Ventilator 02/14/19 04:00 97.5 80 16 140/71 (94) 99 02/14/19 04:00 77 02/14/19 02:45 75 16 100 Mechanical Ventilator 45.0 30 74 16 30 02/14/19 01:13 81 18 30 02/14/19 00:00 76 02/14/19 00:00 Mechanical Ventilator 02/14/19 00:00 30 02/14/19 00:00 97.9 79 16 147/77 (100) 100 02/13/19 23:08 77 15 100 Mechanical Ventilator 45.0 30 80 16 30 02/13/19 20:42 77 16 30 02/13/19 20:34 98 161/78 02/13/19 20:00 Mechanical Ventilator 02/13/19 20:00 97.9 83 15 154/70 (98) 100 02/13/19 20:00 30 02/13/19 20:00 74 02/13/19 19:00 77 14 100 Mechanical Ventilator 45.0 30 80 14 30 02/13/19 16:58 80 14 100 Mechanical Ventilator 30 76 14 30 02/13/19 16:00 77 02/13/19 16:00 30 02/13/19 16:00 Mechanical Ventilator 02/13/19 15:47 97.9 80 16 136/66 (89) 100 02/13/19 14:48 78 14 100 Mechanical Ventilator 30 76 14 30 02/13/19 12:59 78 17 30 02/13/19 12:00 Mechanical Ventilator 02/13/19 12:00 78 02/13/19 12:00 97.5 78 16 142/74 (96) 100 02/13/19 12:00 30 02/13/19 10:55 76 14 100 Mechanical Ventilator 30 75 14 30 Intake and Output 02/13/19 02/14/19 18:59 06:59 Intake Total 735 ml 1520 ml Output Total 550 ml 1000 ml Balance 185 ml 520 ml Free Water 300 ml 300 ml IV Total 75 ml 825 ml Tube Feeding 360 ml 395 ml Output Urine Total 550 ml 1000 ml # Bowel Movements 2 Laboratory Tests 02/14/19 04:00: White Blood Count 8.4, Red Blood Count 2.87L, Hemoglobin 7.7L, Hematocrit 24.3L , Mean Corpuscular Volume 84, Mean Corpuscular Hemoglobin 26.9L, Mean Corpuscular Hemoglobin Concent 31.9L, Red Cell Distribution Width 16.5H, Platelet Count 306, Mean Platelet Volume 5.2L, Neutrophils (%) (Auto) , Lymphocytes (%) (Auto) , Monocytes (%) (Auto) , Eosinophils (%) (Auto) , Basophils (%) (Auto) , Neutrophils % (Manual) [Pending], Lymphocytes % (Manual) [Pending], Platelet Estimate [Pending], Platelet Morphology [Pending], Sodium Level 142, Potassium Level 3.6, Chloride Level 108H, Carbon Dioxide Level 24, Anion Gap 10, Blood Urea Nitrogen 12, Creatinine 1.3, Estimat Glomerular Filtration Rate , Glucose Level 86, Calcium Level 8.3L, Total Bilirubin 0.2, Aspartate Amino Transf (AST/SGOT) 27, Alanine Aminotransferase (ALT/SGPT) 30, Alkaline Phosphatase 291H, Total Protein 7.2, Albumin 1.9L, Globulin 5.3, Albumin/Globulin Ratio 0.4L Height (Feet): 5 Height (Inches): 5.00 Weight (Pounds): 180 Objective General Appearance: WD/WN, confused Neck: supple Cardiovascular: normal rate, regular rhythm Respiratory/Chest: chest wall non-tender, rhonchi - bilaterally Abdomen: normal bowel sounds, non tender, soft, no organomegaly Edema: no edema noted Arm (L), no edema noted Arm (R), no edema noted Leg (L), no edema noted Leg (R), no edema noted Pedal (L), no edema noted Pedal (R), no edema noted Generalized Neurologic: disoriented, unresponsive, aphasia Irvin Beltrán MD Feb 14, 2019 09:55
--- NOTE | 2019-02-14 10:02 | NUR ---
NURSE NOTES: Telephone consent received from patient's daughter Krista Horton for blood transfusion.
--- NOTE | 2019-02-14 10:09 | NUR ---
NURSE NOTES: Received phone call from Verna from blood bank. Patient's blood type is O- and was ordered from [facility] for delivery [facility]. Estimated delivery is 5-6 hours.
[2019-02-14 12:00] VITALS: BP 138/79
--- NOTE | 2019-02-14 12:01 | NUR ---
NURSE NOTES: Patient noted with large BM. Krystina-care and wound care done. Turned and repositioned.
--- NOTE | 2019-02-14 12:53 | Nephrology Progress Note ---
Assessment/Plan Problem List: (1) Acute renal failure (ARF) Assessment: Cr stable (2) Chronic respiratory failure (3) Anemia (4) Sepsis Assessment Acute renal failure Respiratory failure - Trach Low Mag- Low k , Low Na Anemia UTI / Sepsis Proteinuria / HypoAlbuminemia high Trigs Sz decubs bed bound DNR Plan K supplement Hydrate Urine studies avoid Nephrotoxics mag K Phos supplements as needed monitor renal parameters Subjective ROS Limited/Unobtainable: Yes Objective Objective Last 24 Hour Vital Signs Date Time Temp Pulse Resp B/P (MAP) Pulse Ox O2 Delivery O2 Flow Rate FiO2 02/14/19 12:50 100 T-Piece 8.0 30 02/14/19 12:00 T-piece 8.0 02/14/19 12:00 98.0 79 24 138/79 (98) 100 02/14/19 12:00 8.0 30 02/14/19 11:33 84 02/14/19 10:45 84 20 100 T-Piece 8.0 30 77 16 99 02/14/19 08:59 80 125/66 02/14/19 08:56 99 T-Piece 8.0 30 02/14/19 08:00 98.0 80 24 125/66 (85) 97 02/14/19 08:00 T-piece 8.0 02/14/19 08:00 8.0 30 02/14/19 07:30 87 02/14/19 07:01 68 14 100 Mechanical Ventilator 30 69 14 30 02/14/19 05:03 80 14 30 02/14/19 04:00 30 02/14/19 04:00 Mechanical Ventilator 02/14/19 04:00 97.5 80 16 140/71 (94) 99 02/14/19 04:00 77 02/14/19 02:45 75 16 100 Mechanical Ventilator 45.0 30 74 16 30 02/14/19 01:13 81 18 30 02/14/19 00:00 76 02/14/19 00:00 Mechanical Ventilator 02/14/19 00:00 30 02/14/19 00:00 97.9 79 16 147/77 (100) 100 02/13/19 23:08 77 15 100 Mechanical Ventilator 45.0 30 80 16 30 02/13/19 20:42 77 16 30 02/13/19 20:34 98 161/78 02/13/19 20:00 Mechanical Ventilator 02/13/19 20:00 97.9 83 15 154/70 (98) 100 02/13/19 20:00 30 02/13/19 20:00 74 02/13/19 19:00 77 14 100 Mechanical Ventilator 45.0 30 80 14 30 02/13/19 16:58 80 14 100 Mechanical Ventilator 30 76 14 30 02/13/19 16:00 77 02/13/19 16:00 30 02/13/19 16:00 Mechanical Ventilator 02/13/19 15:47 97.9 80 16 136/66 (89) 100 02/13/19 14:48 78 14 100 Mechanical Ventilator 30 76 14 30 02/13/19 12:59 78 17 30 Intake and Output 02/13/19 02/14/19 18:59 06:59 Intake Total 735 ml 1520 ml Output Total 550 ml 1000 ml Balance 185 ml 520 ml Free Water 300 ml 300 ml IV Total 75 ml 825 ml Tube Feeding 360 ml 395 ml Output Urine Total 550 ml 1000 ml # Bowel Movements 2 Laboratory Tests 02/14/19 04:00: White Blood Count 8.4, Red Blood Count 2.87L, Hemoglobin 7.7L, Hematocrit 24.3L , Mean Corpuscular Volume 84, Mean Corpuscular Hemoglobin 26.9L, Mean Corpuscular Hemoglobin Concent 31.9L, Red Cell Distribution Width 16.5H, Platelet Count 306, Mean Platelet Volume 5.2L, Neutrophils (%) (Auto) , Lymphocytes (%) (Auto) , Monocytes (%) (Auto) , Eosinophils (%) (Auto) , Basophils (%) (Auto) , Differential Total Cells Counted 100, Neutrophils % ( Manual) 67, Lymphocytes % (Manual) 29, Monocytes % (Manual) 1, Eosinophils % ( Manual) 3, Basophils % (Manual) 0, Band Neutrophils 0, Platelet Estimate Adequate, Platelet Morphology Normal, Anisocytosis 1+, Sodium Level 142, Potassium Level 3.6, Chloride Level 108H, Carbon Dioxide Level 24, Anion Gap 10 , Blood Urea Nitrogen 12, Creatinine 1.3, Estimat Glomerular Filtration Rate , Glucose Level 86, Calcium Level 8.3L, Total Bilirubin 0.2, Aspartate Amino Transf (AST/SGOT) 27, Alanine Aminotransferase (ALT/SGPT) 30, Alkaline Phosphatase 291H, Total Protein 7.2, Albumin 1.9L, Globulin 5.3, Albumin/ Globulin Ratio 0.4L Height (Feet): 5 Height (Inches): 5.00 Weight (Pounds): 180 General Appearance: no apparent distress EENT: other - vented Cardiovascular: tachycardia Respiratory/Chest: decreased breath sounds Abdomen: distended Eric Cortez MD Feb 14, 2019 12:53
[2019-02-14] MEDS: cefTRIAXone 1 GM in D5W 55 ML IVPB SCH (13:38)
--- NOTE | 2019-02-14 14:22 | Surgery Progress Note ---
Surgery Progress Note Subjective Additional Comments no acute events Objective Last 24 Hour Vital Signs Date Time Temp Pulse Resp B/P (MAP) Pulse Ox O2 Delivery O2 Flow Rate FiO2 02/14/19 12:50 100 T-Piece 8.0 30 02/14/19 12:00 T-piece 8.0 02/14/19 12:00 98.0 79 24 138/79 (98) 100 02/14/19 12:00 8.0 30 02/14/19 11:33 84 02/14/19 10:45 84 20 100 T-Piece 8.0 30 77 16 99 02/14/19 08:59 80 125/66 02/14/19 08:56 99 T-Piece 8.0 30 02/14/19 08:00 98.0 80 24 125/66 (85) 97 02/14/19 08:00 T-piece 8.0 02/14/19 08:00 8.0 30 02/14/19 07:30 87 02/14/19 07:01 68 14 100 Mechanical Ventilator 30 69 14 30 02/14/19 05:03 80 14 30 02/14/19 04:00 30 02/14/19 04:00 Mechanical Ventilator 02/14/19 04:00 97.5 80 16 140/71 (94) 99 02/14/19 04:00 77 02/14/19 02:45 75 16 100 Mechanical Ventilator 45.0 30 74 16 30 02/14/19 01:13 81 18 30 02/14/19 00:00 76 02/14/19 00:00 Mechanical Ventilator 02/14/19 00:00 30 02/14/19 00:00 97.9 79 16 147/77 (100) 100 02/13/19 23:08 77 15 100 Mechanical Ventilator 45.0 30 80 16 30 02/13/19 20:42 77 16 30 02/13/19 20:34 98 161/78 02/13/19 20:00 Mechanical Ventilator 02/13/19 20:00 97.9 83 15 154/70 (98) 100 02/13/19 20:00 30 02/13/19 20:00 74 02/13/19 19:00 77 14 100 Mechanical Ventilator 45.0 30 80 14 30 02/13/19 16:58 80 14 100 Mechanical Ventilator 30 76 14 30 02/13/19 16:00 77 02/13/19 16:00 30 02/13/19 16:00 Mechanical Ventilator 02/13/19 15:47 97.9 80 16 136/66 (89) 100 02/13/19 14:48 78 14 100 Mechanical Ventilator 30 76 14 30 I&O Intake and Output 02/13/19 02/14/19 19:00 07:00 Intake Total 735 ml 1480 ml Output Total 550 ml 1000 ml Balance 185 ml 480 ml Free Water 300 ml 300 ml IV Total 75 ml 780 ml Tube Feeding 360 ml 400 ml Output Urine Total 550 ml 1000 ml # Bowel Movements 2 Dressing: other Wound: other Drains: other Cardiovascular: RSR Respiratory: decreased breath sounds Abdomen: soft, present bowel sounds, non-distended Extremities: no cyanosis Laboratory Tests Test 02/14/19 04:00 White Blood Count 8.4 K/UL (4.8-10.8) Red Blood Count 2.87 M/UL (4.20-5.40) L Hemoglobin 7.7 G/DL (12.0-16.0) L Hematocrit 24.3 % (37.0-47.0) L Mean Corpuscular Volume 84 FL (80-99) Mean Corpuscular Hemoglobin 26.9 PG (27.0-31.0) L Mean Corpuscular Hemoglobin Concent 31.9 G/DL (32.0-36.0) L Red Cell Distribution Width 16.5 % (11.6-14.8) H Platelet Count 306 K/UL (150-450) Mean Platelet Volume 5.2 FL (6.5-10.1) L Neutrophils (%) (Auto) % (45.0-75.0) Lymphocytes (%) (Auto) % (20.0-45.0) Monocytes (%) (Auto) % (1.0-10.0) Eosinophils (%) (Auto) % (0.0-3.0) Basophils (%) (Auto) % (0.0-2.0) Differential Total Cells Counted 100 Neutrophils % (Manual) 67 % (45-75) Lymphocytes % (Manual) 29 % (20-45) Monocytes % (Manual) 1 % (1-10) Eosinophils % (Manual) 3 % (0-3) Basophils % (Manual) 0 % (0-2) Band Neutrophils 0 % (0-8) Platelet Estimate Adequate Platelet Morphology Normal Anisocytosis 1+ Sodium Level 142 MMOL/L (136-145) Potassium Level 3.6 MMOL/L (3.5-5.1) Chloride Level 108 MMOL/L (98-107) H Carbon Dioxide Level 24 MMOL/L (21-32) Anion Gap 10 mmol/L (5-15) Blood Urea Nitrogen 12 mg/dL (7-18) Creatinine 1.3 MG/DL (0.55-1.30) Estimat Glomerular Filtration Rate mL/min (>60) Glucose Level 86 MG/DL (74-106) Calcium Level 8.3 MG/DL (8.5-10.1) L Total Bilirubin 0.2 MG/DL (0.2-1.0) Aspartate Amino Transf (AST/SGOT) 27 U/L (15-37) Alanine Aminotransferase (ALT/SGPT) 30 U/L (12-78) Alkaline Phosphatase 291 U/L (46-116) H Total Protein 7.2 G/DL (6.4-8.2) Albumin 1.9 G/DL (3.4-5.0) L Globulin 5.3 g/dL Albumin/Globulin Ratio 0.4 (1.0-2.7) L Plan Problems: (1) Sacral decubitus ulcer Assessment & Plan: This is a 83-year-old female with multiple medical committees that is currently admitted for medical care and management and identified to have multiple wounds requiring care. On admission patient noted to have a resolved sacral decubitus ulcer. Has had prior care and is well-healed at this time. Will ensure it does not open up again. Patient has a right ischial decubitus ulcer that is resolved. Scar intact and well formed. Will monitor to ensure it does not open up again. Patient has a left ischial decubitus ulcer that can be identified to be stage IV with palpable bone that has been resolving as noted by the periwound tissue and scar but open area approximately 1 cm x 1.5 cm few millimeters deep to bone identified. Unsure if this is been to be completely healed prior and has since opened or if has been healing at this level. No foul odor no drainage was unsure local wound care until healed Bilateral heels soft without signs of injury Resolving pressure injury L ischium(L)1.8cm x (W)1cm.Scattered biofilm at base of wound. Edges flat and adherent with surrounding hyperpigmentation. No odor or exudate noted. Sacrum is pale pink with surrounding hyperpigmentation. Hyperpigmentation R ischium with small sheared area centrally.No areas of erythema or exudate noted. Both heels are soft but blanchable. Skin Assessed under collar of trach and no evidence of skin breakdown noted. All wound Tx. are effective and continued as ordered. Pt ahs an APM/Belén mattress overlay and is being repositioned per protocols and per tolerance.No new skin concerns noted. Treatment plan: Please apply skin protectant and optifoam to sacral area. Change every 3 days Please apply skin protectant and optifoam to right ischial area. Change every 3 days Please apply Thera honey infused gauze to small opening in the left ischial wound bed followed by skin protectant in the periwound and up to foam. Change daily as needed saturation Apply Xeroform and dressing over left hand blister. Offload pressure from heels with pillow Air soft mattress Turn every 2 hours Nutritional optimization We will monitor follow with recommendations (2) Sepsis Assessment & Plan: IV abx as per ID trend labs improving wounds unlikely etiology likely respiratory imaging noted and okay abnormal lft's stable PICC on Abx improved (3) Feeding by G-tube Assessment & Plan: DAILY ESTIMATED NEEDS: Needs based on Pulmonary, wounds, bedbound/ 60kg adj 25-28 kcals/kg [id number] total kcals 1.25-2 g protein/kg 75-120 g total protein 25-30 mL/kg [id number] total fluid mLs NUTRITION DIAGNOSIS: * Swallowing difficulty R/T respiratory status as evidenced by pt on T-collar, now back the vent, PEG dep, TF held at this time due to episodes of vomiting. * Increased kcal/prot needs R/T wound healing as evidenced by BL buttocks and sacral wound photos, refer to WC reynaldo. CURRENT TF:Jevity 1.2 @ 40ml/hr x 24 hrs -> TF ORDER DC'ED THIS AM ENTERAL NUTRITION RECOMMENDATIONS: Osmolite 1.2 @ 55ml/hr x 24 hrs + Prosource 1pkt QD to provide 1320ml, 1584kcal , 73g +11g prot, 1060ml free water - Once medically appropriate to resume TF, rec to initiate isotonic formula of Osmolite 1.2 for possible improved tolerance - Initiate Osmolite 1.2 @ 25ml/hr x 6hrs, advance 10ml q 4-6 hrs as tolerated to goal rate - W/ good TF tolerance at goal, add Prosource 1pkt daily to meet protein needs - Flush per MD/ HOB over 30 degrees ADDITIONAL RECOMMENDATIONS: 1) Re-calibrated bedscale wt for accurate CBW 2) Wound healing: Add Cristian 1pkt BID + MVI x 1 Pt w/ full thickness resolving wound 3) Monitor lytes, replete as needed 4) Monitor NPO status, ability to resume TF. -> held on and off due to vomitting since 02/02, TF dc'ed on 02/06. (4) Chronic vegetative state Assessment & Plan: incontinence of urine and stool. can soil dressings. nurses doing great job with monitoring and changing prn (5) Leukocytosis Walter Madera Feb 14, 2019 14:22
--- NOTE | 2019-02-14 15:23 | Pulmonology Progress Note ---
Assessment/Plan Assessment/Plan Pulmonary Progress Note HPI This an 83-year-old female with history of tracheostomy, VDRF, feeding tube, admitted with Pneumonia, respiratory distress. Past Medical History: VDRF, Trach, G tube, Hypertension, Cardiac disease, Dementia, Previous CVA, TIA, Seizure disorder, previous cancer Impression: Sepsis syndrome Pneumonia VDRF, Trach, G tube, Hypertension, Cardiac disease, Dementia, Previous CVA, Seizure disorder, Respiratory failure with hypoxia Anemia Sacral ulcer renal cyst Plan maintain same for now mucomyst and duoneb SNF meds as is unable to wean at present full vent support as needed Oxygen as needed Monitor labs for change changes noted Patient is a DNR. No CPR. dc planning per family and primary impression, plan, and exam edited and reviewed in detail care discussed with RN Subjective Allergies: Coded Allergies: CODEINE (Verified Allergy, Unknown, HIVES, 09/15/09) Subjective on AC on mucomyst and duoneb noted congestion supportive care noted RT care reviewed overnight care reviewed Objective Vital Signs Noted Objective WDWN NAD contracted on vent reduced breath sounds bilaterally with scattered rhonchi same [id number] without MRG NABS nontender no HSM no CC minimal nonfocal nonverbal trach and gt reviewed and edited Laboratory Tests Noted Subjective ROS Limited/Unobtainable: No Allergies: Coded Allergies: CODEINE (Verified Allergy, Unknown, HIVES, 09/15/09) Objective Last 24 Hour Vital Signs Date Time Temp Pulse Resp B/P (MAP) Pulse Ox O2 Delivery O2 Flow Rate FiO2 02/14/19 12:50 100 T-Piece 8.0 30 02/14/19 12:00 T-piece 8.0 02/14/19 12:00 98.0 79 24 138/79 (98) 100 02/14/19 12:00 8.0 30 02/14/19 11:33 84 02/14/19 10:45 84 20 100 T-Piece 8.0 30 77 16 99 02/14/19 08:59 80 125/66 02/14/19 08:56 99 T-Piece 8.0 30 02/14/19 08:00 98.0 80 24 125/66 (85) 97 02/14/19 08:00 T-piece 8.0 02/14/19 08:00 8.0 30 02/14/19 07:30 87 02/14/19 07:01 68 14 100 Mechanical Ventilator 30 69 14 30 02/14/19 05:03 80 14 30 02/14/19 04:00 30 02/14/19 04:00 Mechanical Ventilator 02/14/19 04:00 97.5 80 16 140/71 (94) 99 02/14/19 04:00 77 02/14/19 02:45 75 16 100 Mechanical Ventilator 45.0 30 74 16 30 02/14/19 01:13 81 18 30 02/14/19 00:00 76 02/14/19 00:00 Mechanical Ventilator 02/14/19 00:00 30 02/14/19 00:00 97.9 79 16 147/77 (100) 100 02/13/19 23:08 77 15 100 Mechanical Ventilator 45.0 30 80 16 30 02/13/19 20:42 77 16 30 02/13/19 20:34 98 161/78 02/13/19 20:00 Mechanical Ventilator 02/13/19 20:00 97.9 83 15 154/70 (98) 100 02/13/19 20:00 30 02/13/19 20:00 74 02/13/19 19:00 77 14 100 Mechanical Ventilator 45.0 30 80 14 30 02/13/19 16:58 80 14 100 Mechanical Ventilator 30 76 14 30 02/13/19 16:00 77 02/13/19 16:00 30 02/13/19 16:00 Mechanical Ventilator 02/13/19 15:47 97.9 80 16 136/66 (89) 100 Intake and Output 02/13/19 02/14/19 19:00 07:00 Intake Total 735 ml 1480 ml Output Total 550 ml 1000 ml Balance 185 ml 480 ml Free Water 300 ml 300 ml IV Total 75 ml 780 ml Tube Feeding 360 ml 400 ml Output Urine Total 550 ml 1000 ml # Bowel Movements 2 Laboratory Tests 02/14/19 04:00: White Blood Count 8.4, Red Blood Count 2.87L, Hemoglobin 7.7L, Hematocrit 24.3L , Mean Corpuscular Volume 84, Mean Corpuscular Hemoglobin 26.9L, Mean Corpuscular Hemoglobin Concent 31.9L, Red Cell Distribution Width 16.5H, Platelet Count 306, Mean Platelet Volume 5.2L, Neutrophils (%) (Auto) , Lymphocytes (%) (Auto) , Monocytes (%) (Auto) , Eosinophils (%) (Auto) , Basophils (%) (Auto) , Differential Total Cells Counted 100, Neutrophils % ( Manual) 67, Lymphocytes % (Manual) 29, Monocytes % (Manual) 1, Eosinophils % ( Manual) 3, Basophils % (Manual) 0, Band Neutrophils 0, Platelet Estimate Adequate, Platelet Morphology Normal, Anisocytosis 1+, Sodium Level 142, Potassium Level 3.6, Chloride Level 108H, Carbon Dioxide Level 24, Anion Gap 10 , Blood Urea Nitrogen 12, Creatinine 1.3, Estimat Glomerular Filtration Rate , Glucose Level 86, Calcium Level 8.3L, Total Bilirubin 0.2, Aspartate Amino Transf (AST/SGOT) 27, Alanine Aminotransferase (ALT/SGPT) 30, Alkaline Phosphatase 291H, Total Protein 7.2, Albumin 1.9L, Globulin 5.3, Albumin/ Globulin Ratio 0.4L Current Medications Medications (Trade) Dose Ordered Sig/Maicol Route PRN Reason Start Time Stop Time Status Last Admin Dose Admin Acetaminophen (Tylenol) 650 mg Q4H PRN GT Mild Pain/Temp > 100.5 02/03/19 19:30 03/05/19 19:29 02/07/19 00:13 Acetylcysteine (Mucomyst) 100 mg Q4HRT HHN 02/01/19 15:00 03/03/19 12:59 02/14/19 15:12 Albuterol/ Ipratropium (Albuterol/ Ipratropium) 3 ml Q4H PRN HHN Shortness of Breath 02/12/19 20:30 02/17/19 20:29 02/14/19 15:12 Ascorbic Acid (Vitamin C) 250 mg DAILY GT 02/09/19 09:00 02/24/19 08:59 02/14/19 08:58 Atropine Sulfate (Atropine Opth Adriana) 1 drop TID SL 02/10/19 09:30 03/12/19 09:29 02/14/19 12:59 Bisacodyl (Dulcolax) 10 mg PRN PRN RECTAL Constipation 01/24/19 05:30 02/23/19 05:29 Ceftriaxone Sodium 1 gm/ Dextrose 55 ml @ 110 mls/hr Q24H IVPB 02/11/19 14:00 02/18/19 13:59 02/14/19 13:38 Chlorhexidine Gluconate (Cesilia-Hex 2%) 1 applic DAILY@2000 TOPIC 02/10/19 20:00 03/12/19 19:59 02/13/19 20:33 Dextrose/Sodium Chloride 1,000 ml @ 75 mls/hr [id number] IV 02/06/19 07:45 03/08/19 07:44 02/14/19 15:03 Docusate Sodium (Colace) 100 mg TID GT 02/08/19 18:00 02/23/19 05:29 02/14/19 08:58 Heparin Sodium (Porcine) (Heparin 5000 units/ml) 5,000 units EVERY 12 HOURS SUBQ 01/24/19 09:00 02/23/19 08:59 02/12/19 08:13 Hydralazine HCl (Apresoline) 25 mg Q4H PRN GT SBP above 160 02/08/19 15:15 03/09/19 16:29 Levetiracetam (Keppra) 750 mg Q12HR GT 01/28/19 21:00 02/23/19 08:59 02/14/19 08:59 Metoclopramide HCl (Reglan) 10 mg Q6H PRN IVP Nausea & Vomiting 02/07/19 09:00 03/09/19 08:59 Metoprolol Tartrate (Lopressor) 25 mg Q12HR GT 02/07/19 01:45 03/09/19 01:44 02/14/19 08:59 Ondansetron HCl (Zofran) 4 mg Q6H PRN GT Nausea & Vomiting 01/24/19 05:30 02/23/19 05:29 02/06/19 10:30 Pantoprazole (Protonix) 40 mg Q12HR IVP 02/08/19 21:00 03/06/19 08:59 02/14/19 08:59 Bg Moffett MD Feb 14, 2019 15:23
--- NOTE | 2019-02-14 15:39 | NUR ---
NURSE NOTES: Patient's blood transfusion started at 15:24 via right upper arm PICC. Vital signs stable, afebrile. No s/s of transfusion reaction noted after 15 minutes.
--- NOTE | 2019-02-14 15:44 | NUR ---
HAND-OFF: Report given to Regina Acevedo RN. Blood transfusion ongoing, patient in stable condition.
[2019-02-14 16:00] VITALS: BP 115/64
--- NOTE | 2019-02-14 17:49 | General Progress Note ---
Assessment/Plan Status: stable, progressing Assessment/Plan: Assessment - N/V - suspect due to gastroparesis - better today - will hold off on G to J conversion per daughter request - Elevated Alk phos / LFT - CT negative - abd U/S negative - may need contrast CT or MRI to better evaluate - Anemia with OB (-) stools - Resp failure, s/p Trach - dysphagia, s/p PEG - OBS - poor Px Recommendations - laxative PRN - continue TF - aspiration precautions - elevate HOB - may need contrast CT or MRI (latter difficult on vent and in MRI trailer) - PPI - Elevate HOB Subjective Allergies: Coded Allergies: CODEINE (Verified Allergy, Unknown, HIVES, 09/15/09) Subjective Seen earlier today tolerating TF Objective Last 24 Hour Vital Signs Date Time Temp Pulse Resp B/P (MAP) Pulse Ox O2 Delivery O2 Flow Rate FiO2 02/14/19 16:00 75 02/14/19 16:00 T-piece 8.0 02/14/19 16:00 98.2 81 24 115/64 (81) 100 02/14/19 16:00 8.0 30 02/14/19 15:30 83 20 100 T-Piece 8.0 30 79 20 99 02/14/19 12:50 100 T-Piece 8.0 30 02/14/19 12:00 T-piece 8.0 02/14/19 12:00 98.0 79 24 138/79 (98) 100 02/14/19 12:00 8.0 30 02/14/19 11:33 84 02/14/19 10:45 84 20 100 T-Piece 8.0 30 77 16 99 02/14/19 08:59 80 125/66 02/14/19 08:56 99 T-Piece 8.0 30 02/14/19 08:00 98.0 80 24 125/66 (85) 97 02/14/19 08:00 T-piece 8.0 02/14/19 08:00 8.0 30 02/14/19 07:30 87 02/14/19 07:01 68 14 100 Mechanical Ventilator 30 69 14 30 02/14/19 05:03 80 14 30 02/14/19 04:00 30 02/14/19 04:00 Mechanical Ventilator 02/14/19 04:00 97.5 80 16 140/71 (94) 99 02/14/19 04:00 77 02/14/19 02:45 75 16 100 Mechanical Ventilator 45.0 30 74 16 30 02/14/19 01:13 81 18 30 02/14/19 00:00 76 02/14/19 00:00 Mechanical Ventilator 02/14/19 00:00 30 02/14/19 00:00 97.9 79 16 147/77 (100) 100 02/13/19 23:08 77 15 100 Mechanical Ventilator 45.0 30 80 16 30 02/13/19 20:42 77 16 30 02/13/19 20:34 98 161/78 02/13/19 20:00 Mechanical Ventilator 02/13/19 20:00 97.9 83 15 154/70 (98) 100 02/13/19 20:00 30 02/13/19 20:00 74 02/13/19 19:00 77 14 100 Mechanical Ventilator 45.0 30 80 14 30 Intake and Output 02/13/19 02/14/19 19:00 07:00 Intake Total 735 ml 1480 ml Output Total 550 ml 1000 ml Balance 185 ml 480 ml Free Water 300 ml 300 ml IV Total 75 ml 780 ml Tube Feeding 360 ml 400 ml Output Urine Total 550 ml 1000 ml # Bowel Movements 2 Laboratory Tests 02/14/19 04:00: White Blood Count 8.4, Red Blood Count 2.87L, Hemoglobin 7.7L, Hematocrit 24.3L , Mean Corpuscular Volume 84, Mean Corpuscular Hemoglobin 26.9L, Mean Corpuscular Hemoglobin Concent 31.9L, Red Cell Distribution Width 16.5H, Platelet Count 306, Mean Platelet Volume 5.2L, Neutrophils (%) (Auto) , Lymphocytes (%) (Auto) , Monocytes (%) (Auto) , Eosinophils (%) (Auto) , Basophils (%) (Auto) , Differential Total Cells Counted 100, Neutrophils % ( Manual) 67, Lymphocytes % (Manual) 29, Monocytes % (Manual) 1, Eosinophils % ( Manual) 3, Basophils % (Manual) 0, Band Neutrophils 0, Platelet Estimate Adequate, Platelet Morphology Normal, Anisocytosis 1+, Sodium Level 142, Potassium Level 3.6, Chloride Level 108H, Carbon Dioxide Level 24, Anion Gap 10 , Blood Urea Nitrogen 12, Creatinine 1.3, Estimat Glomerular Filtration Rate , Glucose Level 86, Calcium Level 8.3L, Total Bilirubin 0.2, Aspartate Amino Transf (AST/SGOT) 27, Alanine Aminotransferase (ALT/SGPT) 30, Alkaline Phosphatase 291H, Total Protein 7.2, Albumin 1.9L, Globulin 5.3, Albumin/ Globulin Ratio 0.4L Height (Feet): 5 Height (Inches): 5.00 Weight (Pounds): 180 Objective Debilitated AA woman NCAT (+) trach coarse ronchi RR obese abd Celio Vaughan MD Feb 14, 2019 17:49
--- NOTE | 2019-02-14 19:30 | NUR ---
NURSE NOTES: Received from Rn Regina Acevedo ,83 y.o trache pt obtunded, on 30% t piece via trache,02 sat >95%. with multiple pressure sores pls see pictures, pt extremities flaccid, SR On the monitor. Bp stable afebrile. 1 unit pRBC been finished tolerating well. No untoward reaction noted. Will continue to monitor.VSS.
--- NOTE | 2019-02-14 19:33 | NUR ---
HAND-OFF: Report given to NIKITA PAEZ,blood transfusion completed,vital signs stable, condition stable.
[2019-02-14 20:00] VITALS: BP 156/83
[2019-02-14] MEDS: Dyna-Hex 2% Top Sol 2oz TOPIC SCH (20:21)
--- NOTE | 2019-02-14 21:00 | NUR ---
NURSE NOTES: Pt had xi lg soft bowel movement , cleaned up pt.
--- NOTE | 2019-02-14 23:00 | NUR ---
NURSE NOTES: Daughter at bedside- updated with pts condition- verbalized understanding
[2019-02-15] VITALS: BP 157/77
[2019-02-15] MEDS: Albuterol/Ipratropium 3ml neb HHN PRN ×6 (03:32→23:12)
[2019-02-15 04:00] VITALS: BP 157/77
[2019-02-15 04:51] LABS: BASOPHILS % (AUTO) 0.5 % (0.0-2.0); EOSINOPHILS % (AUTO) 4.1 % (0.0-3.0); HEMATOCRIT 30.1 % (37.0-47.0); HEMOGLOBIN 9.6 G/DL (12.0-16.0); LYMPHOCYTES % (AUTO) 22.1 % (20.0-45.0); MEAN CORPUSCULAR VOLUME 84 FL (80-99); MONOCYTES % (AUTO) 3.3 % (1.0-10.0); NEUTROPHILS % (AUTO) 70.1 % (45.0-75.0); PLATELET COUNT 332 K/UL (150-450); RED BLOOD COUNT 3.57 M/UL (4.20-5.40); RED CELL DISTRIBUTION WIDTH 15.6 % (11.6-14.8); WHITE BLOOD COUNT 12.7 K/UL (4.8-10.8)
--- NOTE | 2019-02-15 06:00 | NUR ---
NURSE NOTES: No resp. distress noted. vss
[2019-02-15] MEDS: D5NS 1,000 ML IV SCH ×2 (07:27→17:56)
--- NOTE | 2019-02-15 07:28 | NUR ---
HAND-OFF: Report given to Regina Shaw RN.
--- NOTE | 2019-02-15 07:30 | NUR ---
NURSE NOTES: Report received from Wilfrido RN,Pt resting in bed asleep noted no resp distress with trach tube on T-Piece 30%,tracheal/ orally secretions suctioned frequently and PRN,GTF Glucerna 1.5 at 35ml/hr no residual noted,with Pure wick draining yellow urine,IVF D5NS at 75 ml/hr infusing to JOSY PICC line<IV site intact,pt on P200 mattress,with sacral pressure wound noted,skin warm and dry,SR upx2 HOB elevated bed lock in lowest position will continue with plans of care.
[2019-02-15 08:00] VITALS: BP 119/60
[2019-02-15] MEDS: Docusate 100mg/10ml Liq GT SCH ×3 (08:58→17:54)
[2019-02-15] MEDS: Pantoprazole Inj IVP SCH ×2 (08:58→20:44)
[2019-02-15] MEDS: levETIRAcetam 500mg/5ml Liquid GT SCH ×2 (08:59→20:43)
[2019-02-15] MEDS: Ascorbic Acid 500mg tab GT SCH (08:59)
[2019-02-15] MEDS: Heparin 5000 units/ml inj SUBQ SCH ×2 (09:01→20:46)
--- NOTE | 2019-02-15 09:28 | General Progress Note ---
Assessment/Plan Problem List: (1) Seizure ICD Codes: R56.9 - Unspecified convulsions SNOMED: 53004096 (2) Anemia ICD Codes: D64.9 - Anemia, unspecified SNOMED: 747847935 Qualifiers: Qualified Codes: D64.9 - Anemia, unspecified (3) Sepsis ICD Codes: A41.9 - Sepsis, unspecified organism SNOMED: 48232550, 761265123 Qualifiers: Qualified Codes: A41.9 - Sepsis, unspecified organism (4) Respiratory failure with hypoxia ICD Codes: J96.91 - Respiratory failure, unspecified with hypoxia SNOMED: 10685361295119652 Qualifiers: Qualified Codes: J96.21 - Acute and chronic respiratory failure with hypoxia (5) HCAP (healthcare-associated pneumonia) ICD Codes: J18.9 - Pneumonia, unspecified organism SNOMED: 723596397, 705162299 (6) Sacral decubitus ulcer ICD Codes: L89.159 - Pressure ulcer of sacral region, unspecified stage SNOMED: 024915548 (7) HTN (hypertension) ICD Codes: I10 - Essential (primary) hypertension SNOMED: 70135730 (8) Chronic vegetative state ICD Codes: R40.3 - Persistent vegetative state SNOMED: 75335470 (9) Chronic respiratory failure ICD Codes: J96.10 - Chronic respiratory failure, unspecified whether with hypoxia or hypercapnia SNOMED: 09326317 (10) Limited mobility ICD Codes: Z74.09 - Other reduced mobility SNOMED: 1108803 Status: stable, progressing Assessment/Plan: vent prn as needed resp rx suctioning as needed gt feeds monitor for vomiting bowel regime monitor residuals cont keppra for szs iv abx per ID transfuse prn dc planning Subjective ROS Limited/Unobtainable: Yes Constitutional: Reports: malaise, weakness HEENT: Reports: no symptoms Cardiovascular: Reports: no symptoms Respiratory: Reports: shortness of breath, sputum Gastrointestinal/Abdominal: Reports: difficulty swallowing Genitourinary: Reports: no symptoms Neurologic/Psychiatric: Reports: pre-existing deficit, seizure Endocrine: Reports: no symptoms Hematologic/Lymphatic: Reports: anemia Allergies: Coded Allergies: CODEINE (Verified Allergy, Unknown, HIVES, 09/15/09) All Systems: reviewed and negative except above Subjective no events. off the vent on tbar. no bleeding. h/h better after transfusion. Objective Last 24 Hour Vital Signs Date Time Temp Pulse Resp B/P (MAP) Pulse Ox O2 Delivery O2 Flow Rate FiO2 02/15/19 08:59 82 119/60 02/15/19 08:00 98.4 82 25 119/60 (79) 98 02/15/19 07:41 99 T-Piece 30 02/15/19 07:34 20 18 99 T-Piece 30 78 18 99 02/15/19 04:00 98.0 83 20 157/77 (103) 100 02/15/19 04:00 T-piece 8.0 02/15/19 04:00 79 02/15/19 04:00 8.0 30 02/15/19 03:32 78 20 100 T-Piece 8.0 30 76 18 99 02/15/19 01:45 100 Cool Aerosol 8.0 30 02/15/19 00:00 98.0 83 20 157/77 (103) 100 02/15/19 00:00 T-piece 8.0 02/15/19 00:00 8.0 30 02/14/19 23:35 81 155/83 02/14/19 23:05 82 20 100 T-Piece 8.0 30 78 18 99 02/14/19 20:00 T-piece 8.0 02/14/19 20:00 79 02/14/19 20:00 96.1 87 20 156/83 (107) 100 02/14/19 19:35 92 20 100 T-Piece 8.0 30 85 18 99 02/14/19 19:30 100 Cool Aerosol 8.0 30 02/14/19 16:00 75 02/14/19 16:00 T-piece 8.0 02/14/19 16:00 98.2 81 24 115/64 (81) 100 02/14/19 16:00 8.0 30 02/14/19 15:30 83 20 100 T-Piece 8.0 30 79 20 99 02/14/19 12:50 100 T-Piece 8.0 30 02/14/19 12:00 T-piece 8.0 02/14/19 12:00 98.0 79 24 138/79 (98) 100 02/14/19 12:00 8.0 30 02/14/19 11:33 84 02/14/19 10:45 84 20 100 T-Piece 8.0 30 77 16 99 Intake and Output 02/14/19 02/15/19 18:59 06:59 Intake Total 1282.5 ml 1750 ml Output Total 1000 ml 680 ml Balance 282.5 ml 1070 ml Free Water 50 ml 300 ml IV Total 712.5 ml 825 ml Tube Feeding 420 ml 385 ml Blood Product 240 ml Other 100 ml Output Urine Total 1000 ml 680 ml # Voids 1 # Bowel Movements 3 5 Laboratory Tests 02/15/19 04:00: White Blood Count 12.7#H, Red Blood Count 3.57L, Hemoglobin 9.6L, Hematocrit 30.1L, Mean Corpuscular Volume 84, Mean Corpuscular Hemoglobin 27.0, Mean Corpuscular Hemoglobin Concent 32.0, Red Cell Distribution Width 15.6H, Platelet Count 332, Mean Platelet Volume 4.7L, Neutrophils (%) (Auto) 70.1, Lymphocytes (%) (Auto) 22.1, Monocytes (%) (Auto) 3.3, Eosinophils (%) (Auto) 4.1H, Basophils (%) (Auto) 0.5 Height (Feet): 5 Height (Inches): 5.00 Weight (Pounds): 180 Objective General Appearance: WD/WN, confused Neck: supple Cardiovascular: normal rate, regular rhythm Respiratory/Chest: chest wall non-tender, rhonchi - bilaterally Abdomen: normal bowel sounds, non tender, soft, no organomegaly Edema: no edema noted Arm (L), no edema noted Arm (R), no edema noted Leg (L), no edema noted Leg (R), no edema noted Pedal (L), no edema noted Pedal (R), no edema noted Generalized Neurologic: disoriented, unresponsive, aphasia Irvin Beltrán MD Feb 15, 2019 09:28
[2019-02-15] MEDS ORDERED: Tubing Blood Filter IV ONE (10:02)
[2019-02-15] MEDS ORDERED: D5NS 1000ml IV ONE ×2 (10:02→10:23)
[2019-02-15] MEDS ORDERED: NS 275ml ONE ×2 (10:02→10:23)
[2019-02-15] MEDS ORDERED: Tubing IV Secondary IV ONE (10:23)
--- NOTE | 2019-02-15 10:53 | Surgery Progress Note ---
Surgery Progress Note Subjective Additional Comments no acute events wbc 12k Objective Last 24 Hour Vital Signs Date Time Temp Pulse Resp B/P (MAP) Pulse Ox O2 Delivery O2 Flow Rate FiO2 02/15/19 08:59 82 119/60 02/15/19 08:00 8.0 30 02/15/19 08:00 105 02/15/19 08:00 98.4 82 25 119/60 (79) 98 02/15/19 07:41 99 T-Piece 30 02/15/19 07:34 20 18 99 T-Piece 30 78 18 99 02/15/19 04:00 98.0 83 20 157/77 (103) 100 02/15/19 04:00 T-piece 8.0 02/15/19 04:00 79 02/15/19 04:00 8.0 30 02/15/19 03:32 78 20 100 T-Piece 8.0 30 76 18 99 02/15/19 01:45 100 Cool Aerosol 8.0 30 02/15/19 00:00 98.0 83 20 157/77 (103) 100 02/15/19 00:00 T-piece 8.0 02/15/19 00:00 8.0 30 02/14/19 23:35 81 155/83 02/14/19 23:05 82 20 100 T-Piece 8.0 30 78 18 99 02/14/19 20:00 T-piece 8.0 02/14/19 20:00 79 02/14/19 20:00 96.1 87 20 156/83 (107) 100 02/14/19 19:35 92 20 100 T-Piece 8.0 30 85 18 99 02/14/19 19:30 100 Cool Aerosol 8.0 30 02/14/19 16:00 75 02/14/19 16:00 T-piece 8.0 02/14/19 16:00 98.2 81 24 115/64 (81) 100 02/14/19 16:00 8.0 30 02/14/19 15:30 83 20 100 T-Piece 8.0 30 79 20 99 02/14/19 12:50 100 T-Piece 8.0 30 02/14/19 12:00 T-piece 8.0 02/14/19 12:00 98.0 79 24 138/79 (98) 100 02/14/19 12:00 8.0 30 11/16/19 11:33 84 I&O Intake and Output 02/14/19 02/15/19 18:59 06:59 Intake Total 1282.5 ml 1750 ml Output Total 1000 ml 680 ml Balance 282.5 ml 1070 ml Free Water 50 ml 300 ml IV Total 712.5 ml 825 ml Tube Feeding 420 ml 385 ml Blood Product 240 ml Other 100 ml Output Urine Total 1000 ml 680 ml # Voids 1 # Bowel Movements 3 5 Dressing: other Wound: other Drains: other Cardiovascular: RSR Respiratory: clear Abdomen: soft, non-tender, present bowel sounds Extremities: no cyanosis, other Laboratory Tests Test 02/15/19 04:00 White Blood Count 12.7 K/UL (4.8-10.8) #H Red Blood Count 3.57 M/UL (4.20-5.40) L Hemoglobin 9.6 G/DL (12.0-16.0) L Hematocrit 30.1 % (37.0-47.0) L Mean Corpuscular Volume 84 FL (80-99) Mean Corpuscular Hemoglobin 27.0 PG (27.0-31.0) Mean Corpuscular Hemoglobin Concent 32.0 G/DL (32.0-36.0) Red Cell Distribution Width 15.6 % (11.6-14.8) H Platelet Count 332 K/UL (150-450) Mean Platelet Volume 4.7 FL (6.5-10.1) L Neutrophils (%) (Auto) 70.1 % (45.0-75.0) Lymphocytes (%) (Auto) 22.1 % (20.0-45.0) Monocytes (%) (Auto) 3.3 % (1.0-10.0) Eosinophils (%) (Auto) 4.1 % (0.0-3.0) H Basophils (%) (Auto) 0.5 % (0.0-2.0) Plan Problems: (1) Sacral decubitus ulcer Assessment & Plan: This is a 83-year-old female with multiple medical committees that is currently admitted for medical care and management and identified to have multiple wounds requiring care. On admission patient noted to have a resolved sacral decubitus ulcer. Has had prior care and is well-healed at this time. Will ensure it does not open up again. Patient has a right ischial decubitus ulcer that is resolved. Scar intact and well formed. Will monitor to ensure it does not open up again. Patient has a left ischial decubitus ulcer that can be identified to be stage IV with palpable bone that has been resolving as noted by the periwound tissue and scar but open area approximately 1 cm x 1.5 cm few millimeters deep to bone identified. Unsure if this is been to be completely healed prior and has since opened or if has been healing at this level. No foul odor no drainage was unsure local wound care until healed Bilateral heels soft without signs of injury Resolving pressure injury L ischium(L)1.8cm x (W)1cm.Scattered biofilm at base of wound. Edges flat and adherent with surrounding hyperpigmentation. No odor or exudate noted. Sacrum is pale pink with surrounding hyperpigmentation. Hyperpigmentation R ischium with small sheared area centrally.No areas of erythema or exudate noted. Both heels are soft but blanchable. Skin Assessed under collar of trach and no evidence of skin breakdown noted. All wound Tx. are effective and continued as ordered. Pt ahs an APM/Belén mattress overlay and is being repositioned per protocols and per tolerance.No new skin concerns noted. Treatment plan: Please apply skin protectant and optifoam to sacral area. Change every 3 days Please apply skin protectant and optifoam to right ischial area. Change every 3 days Please apply Thera honey infused gauze to small opening in the left ischial wound bed followed by skin protectant in the periwound and up to foam. Change daily as needed saturation Apply Xeroform and dressing over left hand blister. Offload pressure from heels with pillow Air soft mattress Turn every 2 hours Nutritional optimization We will monitor follow with recommendations (2) Sepsis Assessment & Plan: IV abx as per ID trend labs improving wounds unlikely etiology likely respiratory imaging noted and okay abnormal lft's stable PICC on Abx improved (3) Feeding by G-tube Assessment & Plan: DAILY ESTIMATED NEEDS: Needs based on Pulmonary, wounds, bedbound/ 60kg adj 25-28 kcals/kg 8914-1022 total kcals 1.25-2 g protein/kg 75-120 g total protein 25-30 mL/kg 2251-9003 total fluid mLs NUTRITION DIAGNOSIS: * Swallowing difficulty R/T respiratory status as evidenced by pt on T-collar, now back the vent, PEG dep, TF held at this time due to episodes of vomiting. * Increased kcal/prot needs R/T wound healing as evidenced by BL buttocks and sacral wound photos, refer to eval. CURRENT TF:Jevity 1.2 @ 40ml/hr x 24 hrs -> TF ORDER DC'ED THIS AM ENTERAL NUTRITION RECOMMENDATIONS: Osmolite 1.2 @ 55ml/hr x 24 hrs + Prosource 1pkt QD to provide 1320ml, 1584kcal , 73g +11g prot, 1060ml free water - Once medically appropriate to resume TF, rec to initiate isotonic formula of Osmolite 1.2 for possible improved tolerance - Initiate Osmolite 1.2 @ 25ml/hr x 6hrs, advance 10ml q 4-6 hrs as tolerated to goal rate - W/ good TF tolerance at goal, add Prosource 1pkt daily to meet protein needs - Flush per MD/ HOB over 30 degrees ADDITIONAL RECOMMENDATIONS: 1) Re-calibrated bedscale wt for accurate CBW 2) Wound healing: Add Cristian 1pkt BID + MVI x 1 Pt w/ full thickness resolving wound 3) Monitor lytes, replete as needed 4) Monitor NPO status, ability to resume TF. -> held on and off due to vomitting since 02/02, TF dc'ed on 02/06. (4) Chronic vegetative state Assessment & Plan: incontinence of urine and stool. can soil dressings. nurses doing great job with monitoring and changing prn (5) Leukocytosis Walter Madera Feb 15, 2019 10:53
--- NOTE | 2019-02-15 11:06 | Nephrology Progress Note ---
Assessment/Plan Problem List: (1) Acute renal failure (ARF) Assessment: Cr stable (2) Chronic respiratory failure (3) Anemia (4) Sepsis Assessment Acute renal failure Respiratory failure - Trach Low Mag- Low k , Low Na Anemia UTI / Sepsis Proteinuria / HypoAlbuminemia high Trigs Sz decubs bed bound DNR Plan K supplement Hydrate Urine studies avoid Nephrotoxics mag K Phos supplements as needed monitor renal parameters Subjective ROS Limited/Unobtainable: Yes Objective Objective Last 24 Hour Vital Signs Date Time Temp Pulse Resp B/P (MAP) Pulse Ox O2 Delivery O2 Flow Rate FiO2 02/15/19 08:59 82 119/60 02/15/19 08:00 8.0 30 02/15/19 08:00 105 02/15/19 08:00 98.4 82 25 119/60 (79) 98 02/15/19 07:41 99 T-Piece 30 02/15/19 07:34 20 18 99 T-Piece 30 78 18 99 02/15/19 04:00 98.0 83 20 157/77 (103) 100 02/15/19 04:00 T-piece 8.0 02/15/19 04:00 79 02/15/19 04:00 8.0 30 02/15/19 03:32 78 20 100 T-Piece 8.0 30 76 18 99 02/15/19 01:45 100 Cool Aerosol 8.0 30 02/15/19 00:00 98.0 83 20 157/77 (103) 100 02/15/19 00:00 T-piece 8.0 02/15/19 00:00 8.0 30 02/14/19 23:35 81 155/83 02/14/19 23:05 82 20 100 T-Piece 8.0 30 78 18 99 02/14/19 20:00 T-piece 8.0 02/14/19 20:00 79 02/14/19 20:00 96.1 87 20 156/83 (107) 100 02/14/19 19:35 92 20 100 T-Piece 8.0 30 85 18 99 02/14/19 19:30 100 Cool Aerosol 8.0 30 02/14/19 16:00 75 02/14/19 16:00 T-piece 8.0 02/14/19 16:00 98.2 81 24 115/64 (81) 100 02/14/19 16:00 8.0 30 02/14/19 15:30 83 20 100 T-Piece 8.0 30 79 20 99 02/14/19 12:50 100 T-Piece 8.0 30 02/14/19 12:00 T-piece 8.0 02/14/19 12:00 98.0 79 24 138/79 (98) 100 02/14/19 12:00 8.0 30 02/14/19 11:33 84 Intake and Output 02/14/19 02/15/19 18:59 06:59 Intake Total 1282.5 ml 1750 ml Output Total 1000 ml 680 ml Balance 282.5 ml 1070 ml Free Water 50 ml 300 ml IV Total 712.5 ml 825 ml Tube Feeding 420 ml 385 ml Blood Product 240 ml Other 100 ml Output Urine Total 1000 ml 680 ml # Voids 1 # Bowel Movements 3 5 Laboratory Tests 02/15/19 04:00: White Blood Count 12.7#H, Red Blood Count 3.57L, Hemoglobin 9.6L, Hematocrit 30.1L, Mean Corpuscular Volume 84, Mean Corpuscular Hemoglobin 27.0, Mean Corpuscular Hemoglobin Concent 32.0, Red Cell Distribution Width 15.6H, Platelet Count 332, Mean Platelet Volume 4.7L, Neutrophils (%) (Auto) 70.1, Lymphocytes (%) (Auto) 22.1, Monocytes (%) (Auto) 3.3, Eosinophils (%) (Auto) 4.1H, Basophils (%) (Auto) 0.5 Height (Feet): 5 Height (Inches): 5.00 Weight (Pounds): 180 General Appearance: no apparent distress EENT: other - trach Cardiovascular: normal rate Respiratory/Chest: decreased breath sounds Eric Cortez MD Feb 15, 2019 11:06
[2019-02-15 12:00] VITALS: BP 108/75
--- NOTE | 2019-02-15 12:00 | NUR ---
NURSE NOTES: Pt resting in bed stable,tracheal and oral secretions noted in large amount,tracheal suctioning done frequently,turned and repositoned .
--- NOTE | 2019-02-15 12:09 | Infectious Diseases Prog Note ---
Assessment/Plan Assessment/Plan A 1. Acinetobacter, pseudomonas & Klebsiella pneumonia treated 2. respiratory failure 3. hypertension 4. CVA 5. dementia 6. sacral decubitus ulcer 7. rectal VRE colonization 8. Anemia 9. Proteus UTI 10. Acute renal failure 11. Leukocytosis P 1. continue Rocephin X 1 day Subjective ROS Limited/Unobtainable: Yes Constitutional: Denies: fever Respiratory: Reports: other - off of ventilator Allergies: Coded Allergies: CODEINE (Verified Allergy, Unknown, HIVES, 09/15/09) Objective Vital Signs Last 24 Hour Vital Signs Date Time Temp Pulse Resp B/P (MAP) Pulse Ox O2 Delivery O2 Flow Rate FiO2 02/15/19 12:05 8.0 30 02/15/19 12:00 T-piece 8.0 02/15/19 11:15 84 18 99 T-Piece 8.0 30 83 18 99 02/15/19 08:59 82 119/60 02/15/19 08:00 T-piece 8.0 02/15/19 08:00 8.0 30 02/15/19 08:00 105 02/15/19 08:00 98.4 82 25 119/60 (79) 98 02/15/19 07:41 99 T-Piece 30 02/15/19 07:34 20 18 99 T-Piece 30 78 18 99 02/15/19 04:00 98.0 83 20 157/77 (103) 100 02/15/19 04:00 T-piece 8.0 02/15/19 04:00 79 02/15/19 04:00 8.0 30 02/15/19 03:32 78 20 100 T-Piece 8.0 30 76 18 99 02/15/19 01:45 100 Cool Aerosol 8.0 30 02/15/19 00:00 98.0 83 20 157/77 (103) 100 02/15/19 00:00 T-piece 8.0 02/15/19 00:00 8.0 30 02/14/19 23:35 81 155/83 02/14/19 23:05 82 20 100 T-Piece 8.0 30 78 18 99 02/14/19 20:00 T-piece 8.0 02/14/19 20:00 79 02/14/19 20:00 96.1 87 20 156/83 (107) 100 02/14/19 19:35 92 20 100 T-Piece 8.0 30 85 18 99 02/14/19 19:30 100 Cool Aerosol 8.0 30 02/14/19 16:00 75 02/14/19 16:00 T-piece 8.0 02/14/19 16:00 98.2 81 24 115/64 (81) 100 02/14/19 16:00 8.0 30 02/14/19 15:30 83 20 100 T-Piece 8.0 30 79 20 99 02/14/19 12:50 100 T-Piece 8.0 30 Height (Feet): 5 Height (Inches): 5.00 Weight (Pounds): 180 General Appearance: no acute distress HEENT: status post trach Respiratory/Chest: lungs clear, other - on T bar Cardiovascular: normal rate, other - R arm PICC line Abdomen: soft, non tender, other - GT feeding Extremities: no edema Neurologic/Psychiatric: aphasia Laboratory Tests Test 02/15/19 04:00 White Blood Count 12.7 K/UL (4.8-10.8) #H Red Blood Count 3.57 M/UL (4.20-5.40) L Hemoglobin 9.6 G/DL (12.0-16.0) L Hematocrit 30.1 % (37.0-47.0) L Mean Corpuscular Volume 84 FL (80-99) Mean Corpuscular Hemoglobin 27.0 PG (27.0-31.0) Mean Corpuscular Hemoglobin Concent 32.0 G/DL (32.0-36.0) Red Cell Distribution Width 15.6 % (11.6-14.8) H Platelet Count 332 K/UL (150-450) Mean Platelet Volume 4.7 FL (6.5-10.1) L Neutrophils (%) (Auto) 70.1 % (45.0-75.0) Lymphocytes (%) (Auto) 22.1 % (20.0-45.0) Monocytes (%) (Auto) 3.3 % (1.0-10.0) Eosinophils (%) (Auto) 4.1 % (0.0-3.0) H Basophils (%) (Auto) 0.5 % (0.0-2.0) Current Medications Medications (Trade) Dose Ordered Sig/Maicol Route PRN Reason Start Time Stop Time Status Last Admin Dose Admin Acetaminophen (Tylenol) 650 mg Q4H PRN GT Mild Pain/Temp > 100.5 02/03/19 19:30 03/05/19 19:29 02/07/19 00:13 Acetylcysteine (Mucomyst) 100 mg Q4HRT HHN 02/01/19 15:00 03/03/19 12:59 02/15/19 11:11 Albuterol/ Ipratropium (Albuterol/ Ipratropium) 3 ml Q4H PRN HHN Shortness of Breath 02/12/19 20:30 02/17/19 20:29 02/15/19 11:12 Ascorbic Acid (Vitamin C) 250 mg DAILY GT 02/09/19 09:00 02/24/19 08:59 02/15/19 08:59 Atropine Sulfate (Atropine Opth Adriana) 1 drop TID SL 02/10/19 09:30 03/12/19 09:29 02/15/19 08:59 Bisacodyl (Dulcolax) 10 mg PRN PRN RECTAL Constipation 01/24/19 05:30 02/23/19 05:29 Ceftriaxone Sodium 1 gm/ Dextrose 55 ml @ 110 mls/hr Q24H IVPB 02/11/19 14:00 02/18/19 13:59 02/14/19 13:38 Chlorhexidine Gluconate (Cesilia-Hex 2%) 1 applic DAILY@2000 TOPIC 02/10/19 20:00 03/12/19 19:59 02/14/19 20:21 Dextrose/Sodium Chloride 1,000 ml @ 75 mls/hr [id number] IV 02/06/19 07:45 03/08/19 07:44 02/15/19 07:27 Docusate Sodium (Colace) 100 mg TID GT 02/08/19 18:00 02/23/19 05:29 02/15/19 08:58 Heparin Sodium (Porcine) (Heparin 5000 units/ml) 5,000 units EVERY 12 HOURS SUBQ 02/14/19 23:15 03/16/19 23:14 02/15/19 09:01 Hydralazine HCl (Apresoline) 25 mg Q4H PRN GT SBP above 160 02/08/19 15:15 03/09/19 16:29 Levetiracetam (Keppra) 750 mg Q12HR GT 02/14/19 23:30 03/16/19 23:29 02/15/19 08:59 Metoclopramide HCl (Reglan) 10 mg Q6H PRN IVP Nausea & Vomiting 02/07/19 09:00 03/09/19 08:59 Metoprolol Tartrate (Lopressor) 25 mg Q12HR GT 02/14/19 23:30 03/16/19 23:29 02/15/19 08:59 Ondansetron HCl (Zofran) 4 mg Q6H PRN GT Nausea & Vomiting 01/24/19 05:30 02/23/19 05:29 02/06/19 10:30 Pantoprazole (Protonix) 40 mg Q12HR IVP 02/14/19 23:30 03/16/19 23:29 02/15/19 08:58 Chauncey Liriano MD Feb 15, 2019 12:09
--- NOTE | 2019-02-15 13:05 | General Progress Note ---
Assessment/Plan Status: stable, progressing Assessment/Plan: Assessment - N/V - suspect due to gastroparesis - better today - will hold off on G to J conversion per daughter request - Elevated Alk phos / LFT - CT negative - abd U/S negative - may need contrast CT or MRI to better evaluate - Anemia with OB (-) stools - Resp failure, s/p Trach - dysphagia, s/p PEG - OBS - poor Px Recommendations - laxative PRN - continue TF - aspiration precautions - elevate HOB - may need contrast CT or MRI (latter difficult on vent and in MRI trailer) - PPI - Elevate HOB Subjective Allergies: Coded Allergies: CODEINE (Verified Allergy, Unknown, HIVES, 09/15/09) Subjective Seen earlier today tolerating TF Objective Last 24 Hour Vital Signs Date Time Temp Pulse Resp B/P (MAP) Pulse Ox O2 Delivery O2 Flow Rate FiO2 02/15/19 12:05 8.0 30 02/15/19 12:00 T-piece 8.0 02/15/19 12:00 97.9 75 24 108/75 (86) 100 02/15/19 11:15 84 18 99 T-Piece 8.0 30 83 18 99 02/15/19 08:59 82 119/60 02/15/19 08:00 T-piece 8.0 02/15/19 08:00 8.0 30 02/15/19 08:00 105 02/15/19 08:00 98.4 82 25 119/60 (79) 98 02/15/19 07:41 99 T-Piece 30 02/15/19 07:34 20 18 99 T-Piece 30 78 18 99 02/15/19 04:00 98.0 83 20 157/77 (103) 100 02/15/19 04:00 T-piece 8.0 02/15/19 04:00 79 02/15/19 04:00 8.0 30 02/15/19 03:32 78 20 100 T-Piece 8.0 30 76 18 99 02/15/19 01:45 100 Cool Aerosol 8.0 30 02/15/19 00:00 98.0 83 20 157/77 (103) 100 02/15/19 00:00 T-piece 8.0 02/15/19 00:00 8.0 30 02/14/19 23:35 81 155/83 02/14/19 23:05 82 20 100 T-Piece 8.0 30 78 18 99 02/14/19 20:00 T-piece 8.0 02/14/19 20:00 79 02/14/19 20:00 96.1 87 20 156/83 (107) 100 02/14/19 19:35 92 20 100 T-Piece 8.0 30 85 18 99 02/14/19 19:30 100 Cool Aerosol 8.0 30 02/14/19 16:00 75 02/14/19 16:00 T-piece 8.0 02/14/19 16:00 98.2 81 24 115/64 (81) 100 02/14/19 16:00 8.0 30 02/14/19 15:30 83 20 100 T-Piece 8.0 30 79 20 99 Intake and Output 02/14/19 02/15/19 18:59 06:59 Intake Total 1282.5 ml 1750 ml Output Total 1000 ml 680 ml Balance 282.5 ml 1070 ml Free Water 50 ml 300 ml IV Total 712.5 ml 825 ml Tube Feeding 420 ml 385 ml Blood Product 240 ml Other 100 ml Output Urine Total 1000 ml 680 ml # Voids 1 # Bowel Movements 3 5 Laboratory Tests 02/15/19 04:00: White Blood Count 12.7#H, Red Blood Count 3.57L, Hemoglobin 9.6L, Hematocrit 30.1L, Mean Corpuscular Volume 84, Mean Corpuscular Hemoglobin 27.0, Mean Corpuscular Hemoglobin Concent 32.0, Red Cell Distribution Width 15.6H, Platelet Count 332, Mean Platelet Volume 4.7L, Neutrophils (%) (Auto) 70.1, Lymphocytes (%) (Auto) 22.1, Monocytes (%) (Auto) 3.3, Eosinophils (%) (Auto) 4.1H, Basophils (%) (Auto) 0.5 Height (Feet): 5 Height (Inches): 5.00 Weight (Pounds): 180 Objective Debilitated AA woman NCAT (+) trach coarse ronchi RR obese Celio Haney MD Feb 15, 2019 13:05
[2019-02-15] MEDS: cefTRIAXone 1 GM in D5W 55 ML IVPB SCH (13:34)
[2019-02-15 16:00] VITALS: BP 122/80
--- NOTE | 2019-02-15 16:22 | Pulmonology Progress Note ---
Assessment/Plan Assessment/Plan Pulmonary Progress Note HPI This an 83-year-old female with history of tracheostomy, VDRF, feeding tube, admitted with Pneumonia, respiratory distress. Past Medical History: VDRF, Trach, G tube, Hypertension, Cardiac disease, Dementia, Previous CVA, TIA, Seizure disorder, previous cancer Impression: Sepsis syndrome Pneumonia VDRF, Trach, G tube, Hypertension, Cardiac disease, Dementia, Previous CVA, Seizure disorder, Respiratory failure with hypoxia Anemia Sacral ulcer renal cyst Plan continue current AB mucomyst and duoneb SNF meds as is unable to wean at present full vent support as needed Adjust oxygen as needed Monitor labs for change changes noted Patient is a DNR. No CPR. dc planning per family and primary impression, plan, and exam edited and reviewed in detail care discussed with RN Subjective Allergies: Coded Allergies: CODEINE (Verified Allergy, Unknown, HIVES, 09/15/09) Subjective on AC on mucomyst and duoneb noted congestion supportive care noted RT care reviewed overnight care reviewed Objective Vital Signs Noted Objective WDWN NAD contracted on vent reduced breath sounds bilaterally with scattered rhonchi same [id number] without MRG NABS nontender no HSM no CC minimal nonfocal nonverbal trach and gt reviewed and edited Laboratory Tests Noted Subjective ROS Limited/Unobtainable: No Allergies: Coded Allergies: CODEINE (Verified Allergy, Unknown, HIVES, 09/15/09) Objective Last 24 Hour Vital Signs Date Time Temp Pulse Resp B/P (MAP) Pulse Ox O2 Delivery O2 Flow Rate FiO2 02/15/19 15:26 98 T-Piece 8.0 30 02/15/19 15:22 93 18 98 T-Piece 8.0 92 18 97 02/15/19 12:05 8.0 30 02/15/19 12:00 T-piece 8.0 02/15/19 12:00 75 02/15/19 12:00 97.9 75 24 108/75 (86) 100 02/15/19 11:15 84 18 99 T-Piece 8.0 30 83 18 99 02/15/19 08:59 82 119/60 02/15/19 08:00 T-piece 8.0 02/15/19 08:00 8.0 30 02/15/19 08:00 105 02/15/19 08:00 98.4 82 25 119/60 (79) 98 02/15/19 07:41 99 T-Piece 30 02/15/19 07:34 20 18 99 T-Piece 30 78 18 99 02/15/19 04:00 98.0 83 20 157/77 (103) 100 02/15/19 04:00 T-piece 8.0 02/15/19 04:00 79 02/15/19 04:00 8.0 30 02/15/19 03:32 78 20 100 T-Piece 8.0 30 76 18 99 02/15/19 01:45 100 Cool Aerosol 8.0 30 02/15/19 00:00 98.0 83 20 157/77 (103) 100 02/15/19 00:00 T-piece 8.0 02/15/19 00:00 8.0 30 02/14/19 23:35 81 155/83 02/14/19 23:05 82 20 100 T-Piece 8.0 30 78 18 99 02/14/19 20:00 T-piece 8.0 02/14/19 20:00 79 02/14/19 20:00 96.1 87 20 156/83 (107) 100 02/14/19 19:35 92 20 100 T-Piece 8.0 30 85 18 99 02/14/19 19:30 100 Cool Aerosol 8.0 30 Intake and Output 02/14/19 02/15/19 18:59 06:59 Intake Total 1282.5 ml 1750 ml Output Total 1000 ml 680 ml Balance 282.5 ml 1070 ml Free Water 50 ml 300 ml IV Total 712.5 ml 825 ml Tube Feeding 420 ml 385 ml Blood Product 240 ml Other 100 ml Output Urine Total 1000 ml 680 ml # Voids 1 # Bowel Movements 3 5 Laboratory Tests 02/15/19 04:00: White Blood Count 12.7#H, Red Blood Count 3.57L, Hemoglobin 9.6L, Hematocrit 30.1L, Mean Corpuscular Volume 84, Mean Corpuscular Hemoglobin 27.0, Mean Corpuscular Hemoglobin Concent 32.0, Red Cell Distribution Width 15.6H, Platelet Count 332, Mean Platelet Volume 4.7L, Neutrophils (%) (Auto) 70.1, Lymphocytes (%) (Auto) 22.1, Monocytes (%) (Auto) 3.3, Eosinophils (%) (Auto) 4.1H, Basophils (%) (Auto) 0.5 Current Medications Medications (Trade) Dose Ordered Sig/Maicol Route PRN Reason Start Time Stop Time Status Last Admin Dose Admin Acetaminophen (Tylenol) 650 mg Q4H PRN GT Mild Pain/Temp > 100.5 02/03/19 19:30 03/05/19 19:29 02/07/19 00:13 Acetylcysteine (Mucomyst) 100 mg Q4HRT HHN 02/01/19 15:00 03/03/19 12:59 02/15/19 15:18 Albuterol/ Ipratropium (Albuterol/ Ipratropium) 3 ml Q4H PRN HHN Shortness of Breath 02/12/19 20:30 02/17/19 20:29 02/15/19 15:18 Ascorbic Acid (Vitamin C) 250 mg DAILY GT 02/09/19 09:00 02/24/19 08:59 02/15/19 08:59 Atropine Sulfate (Atropine Opth Adriana) 1 drop TID SL 02/10/19 09:30 03/12/19 09:29 02/15/19 13:34 Bisacodyl (Dulcolax) 10 mg PRN PRN RECTAL Constipation 01/24/19 05:30 02/23/19 05:29 Ceftriaxone Sodium 1 gm/ Dextrose 55 ml @ 110 mls/hr Q24H IVPB 02/11/19 14:00 02/18/19 13:59 02/15/19 13:34 Chlorhexidine Gluconate (Cesilia-Hex 2%) 1 applic DAILY@2000 TOPIC 02/10/19 20:00 03/12/19 19:59 02/14/19 20:21 Dextrose/Sodium Chloride 1,000 ml @ 75 mls/hr [id number] IV 02/06/19 07:45 03/08/19 07:44 02/15/19 07:27 Docusate Sodium (Colace) 100 mg TID GT 02/08/19 18:00 02/23/19 05:29 02/15/19 13:33 Heparin Sodium (Porcine) (Heparin 5000 units/ml) 5,000 units EVERY 12 HOURS SUBQ 02/14/19 23:15 03/16/19 23:14 02/15/19 09:01 Hydralazine HCl (Apresoline) 25 mg Q4H PRN GT SBP above 160 02/08/19 15:15 03/09/19 16:29 Levetiracetam (Keppra) 750 mg Q12HR GT 02/14/19 23:30 03/16/19 23:29 02/15/19 08:59 Metoclopramide HCl (Reglan) 10 mg Q6H PRN IVP Nausea & Vomiting 02/07/19 09:00 03/09/19 08:59 Metoprolol Tartrate (Lopressor) 25 mg Q12HR GT 02/14/19 23:30 03/16/19 23:29 02/15/19 08:59 Ondansetron HCl (Zofran) 4 mg Q6H PRN GT Nausea & Vomiting 01/24/19 05:30 02/23/19 05:29 02/06/19 10:30 Pantoprazole (Protonix) 40 mg Q12HR IVP 02/14/19 23:30 03/16/19 23:29 02/15/19 08:58 Bg Moffett MD Feb 15, 2019 16:22
--- NOTE | 2019-02-15 19:00 | NUR ---
NURSE NOTES: Pt stable no resp distress presented during the shift,family member at bedside.
--- NOTE | 2019-02-15 19:20 | NUR ---
HAND-OFF: Report given to Gage Diallo RN.
--- NOTE | 2019-02-15 19:30 | NUR ---
NURSE NOTES: Pt report received from Neeta Olson RN. pt remains stable pt is obtunded neuro [place]. pt is on cardiac specialist showing NSR, no abnormalities noted. pt is on T piece satting at 100%, no resp distress noted. pt bed is low, locked, armed, bed rails up times 3 and padded, call light within easy reach. will continue plan of care.
[2019-02-15 20:00] VITALS: BP 156/72
[2019-02-15] MEDS: Dyna-Hex 2% Top Sol 2oz TOPIC SCH (20:44)
[2019-02-16] VITALS: BP 136/60
--- NOTE | 2019-02-16 02:45 | Progress Note ---
DATE: 02/15/2019 CARDIOLOGY PROGRESS NOTE SUBJECTIVE: Remains on ventilator support. Thin secretions. Tolerating feedings. Status post packed red blood cell transfusion yesterday. Occasional taper to T-tube trial. OBJECTIVE: LUNGS: Bilateral breath sounds with rhonchi. CARDIAC: Regular rhythm and rate. Normal S1, S2. ABDOMEN: Soft with G-tube. EXTREMITIES: Trace edema. LABORATORY DATA: White count 12.7, hemoglobin 9.6, post transfusion. IMPRESSION: Multiple medical problems, comorbidities, and high risk for decompensation, but overall improved over the past several days. PLAN: 1. Observe off vent. 2. Diuresis. 3. Monitor hemoglobin. 4. Antiseizure therapy. 5. Respiratory hygiene. 6. DVT prophylaxis. 7. Discharge planning. Bg Hagen M.D. DR: IOANA JOB#: [id number] CC:
--- NOTE | 2019-02-16 03:15 | Progress Note ---
DATE: 02/14/2019 CARDIOLOGY PROGRESS NOTE SUBJECTIVE: The patient remains with tenuous condition, ventilator dependent, noncommunicative, and requiring transfusions of packed red blood cells. No signs of active bleeding noted. OBJECTIVE: VITAL SIGNS: Blood pressure 125/66, pulse 80, respiratory rate 24, and afebrile. Monitored rhythm sinus. NECK: Thin trach secretions. LUNGS: Diminished breath sounds. Few rhonchi. HEART: Regular rhythm and rate. Normal S1 and S2. ABDOMEN: Soft. G-tube intact. EXTREMITIES: There is dependent edema noted. LABORATORY DATA: White count 8.4 and hemoglobin 7.7. Potassium 3.6, BUN 12, and creatinine 1.3. Albumin 1.9. IMPRESSION: 1. Anemia of chronic disease. 2. Hypomagnesemia, corrected. 3. Hypokalemia, corrected. 4. Severe protein-calorie malnutrition. 5. Acute on chronic diastolic congestive heart failure. 6. Advanced dementia. 7. Chronic respiratory failure with tracheostomy. 8. Hypertensive heart disease. PLAN: 1. Replace electrolytes as needed. 2. Antimicrobials. 3. Ventilator support. 4. Respiratory hygiene. 5. Nutrition by feeding tube. 6. Packed red blood cell transfusion. 7. . 8. Periodic diuresis based on clinical parameters. Bg Hagen M.D. DR: CHARLEE JOB#: [id number] CC:
[2019-02-16] MEDS: Albuterol/Ipratropium 3ml neb HHN PRN ×6 (03:42→23:32)
[2019-02-16 04:00] VITALS: BP 155/55
[2019-02-16 05:14] LABS: BASOPHILS % (AUTO) 0.6 % (0.0-2.0); EOSINOPHILS % (AUTO) 4.1 % (0.0-3.0); HEMOGLOBIN 8.4 G/DL (12.0-16.0); MEAN CORPUSCULAR VOLUME 84 FL (80-99); MONOCYTES % (AUTO) 3.1 % (1.0-10.0); NEUTROPHILS % (AUTO) 69.1 % (45.0-75.0); PLATELET COUNT 255 K/UL (150-450); RED BLOOD COUNT 3.08 M/UL (4.20-5.40); RED CELL DISTRIBUTION WIDTH 14.4 % (11.6-14.8); WHITE BLOOD COUNT 12.5 K/UL (4.8-10.8)
[2019-02-16 05:39] LABS: ALANINE AMINOTRANSFERASE 18 U/L (12-78); ALBUMIN 1.8 G/DL (3.4-5.0); ALBUMIN/GLOBULIN RATIO 0.4 (1.0-2.7); ALKALINE PHOSPHATASE 207 U/L (46-116); ANION GAP 9 mmol/L (5-15); ASPARTATE AMINO TRANSFERASE 17 U/L (15-37); BILIRUBIN,TOTAL 0.1 MG/DL (0.2-1.0); BLOOD UREA NITROGEN 13 mg/dL (7-18); CARBON DIOXIDE 25 MMOL/L (21-32); CHLORIDE 111 MMOL/L (98-107); CREATININE 1.2 MG/DL (0.55-1.30); POTASSIUM 3.3 MMOL/L (3.5-5.1); SODIUM 145 MMOL/L (136-145)
--- NOTE | 2019-02-16 06:30 | NUR ---
NURSE NOTES: Finger stick glucose shows BS of 101. pt remains stable, no change in condition. will continue to monitor.
--- NOTE | 2019-02-16 07:00 | NUR ---
NURSE NOTES: Spoke with MD Beltrán regarding Pt Tube feeding and pt IV fluids. pt is aware of both and stated he "will adjust them."
--- NOTE | 2019-02-16 07:13 | NUR ---
HAND-OFF: Report given to Gage Olson day shift RN. Pt remains stable.
[2019-02-16 08:00] VITALS: BP 146/77
[2019-02-16] MEDS: levETIRAcetam 500mg/5ml Liquid GT SCH ×2 (08:51→20:36)
[2019-02-16] MEDS: Ascorbic Acid 500mg tab GT SCH (08:51)
[2019-02-16 08:52] LABS: ALANINE AMINOTRANSFERASE 24 U/L (12-78); ALBUMIN 2.1 G/DL (3.4-5.0); ALBUMIN/GLOBULIN RATIO 0.4 (1.0-2.7); ALKALINE PHOSPHATASE 231 U/L (46-116); ANION GAP 8 mmol/L (5-15); ASPARTATE AMINO TRANSFERASE 21 U/L (15-37); BILIRUBIN,TOTAL 0.2 MG/DL (0.2-1.0); BLOOD UREA NITROGEN 16 mg/dL (7-18); CALCIUM 8.4 MG/DL (8.5-10.1); CARBON DIOXIDE 29 MMOL/L (21-32); CHLORIDE 106 MMOL/L (98-107); CREATININE 1.2 MG/DL (0.55-1.30); POTASSIUM 3.8 MMOL/L (3.5-5.1); SODIUM 143 MMOL/L (136-145)
[2019-02-16] MEDS: Pantoprazole Inj IVP SCH ×2 (08:52→20:35)
[2019-02-16] MEDS: Docusate 100mg/10ml Liq GT SCH (08:52)
[2019-02-16] MEDS: D5NS 1,000 ML IV SCH (08:53)
[2019-02-16] MEDS: Heparin 5000 units/ml inj SUBQ SCH ×2 (08:58→20:37)
--- NOTE | 2019-02-16 09:11 | General Progress Note ---
Assessment/Plan Problem List: (1) Seizure ICD Codes: R56.9 - Unspecified convulsions SNOMED: 53299329 (2) Anemia ICD Codes: D64.9 - Anemia, unspecified SNOMED: 322303757 Qualifiers: Qualified Codes: D64.9 - Anemia, unspecified (3) Sepsis ICD Codes: A41.9 - Sepsis, unspecified organism SNOMED: 14540299, 787764944 Qualifiers: Qualified Codes: A41.9 - Sepsis, unspecified organism (4) Respiratory failure with hypoxia ICD Codes: J96.91 - Respiratory failure, unspecified with hypoxia SNOMED: 52618559114128621 Qualifiers: Qualified Codes: J96.21 - Acute and chronic respiratory failure with hypoxia (5) HCAP (healthcare-associated pneumonia) ICD Codes: J18.9 - Pneumonia, unspecified organism SNOMED: 993838218, 611675972 (6) Sacral decubitus ulcer ICD Codes: L89.159 - Pressure ulcer of sacral region, unspecified stage SNOMED: 826083032 (7) HTN (hypertension) ICD Codes: I10 - Essential (primary) hypertension SNOMED: 42157123 (8) Chronic vegetative state ICD Codes: R40.3 - Persistent vegetative state SNOMED: 86696776 (9) Chronic respiratory failure ICD Codes: J96.10 - Chronic respiratory failure, unspecified whether with hypoxia or hypercapnia SNOMED: 70554565 (10) Limited mobility ICD Codes: Z74.09 - Other reduced mobility SNOMED: 8237360 Status: stable, progressing Assessment/Plan: vent prn as needed resp rx suctioning as needed gt feeds monitor for vomiting bowel regime monitor residuals cont keppra for szs iv abx per ID transfuse prn dc planning Subjective ROS Limited/Unobtainable: Yes Constitutional: Reports: no symptoms HEENT: Reports: no symptoms Cardiovascular: Reports: no symptoms Respiratory: Reports: shortness of breath, sputum Gastrointestinal/Abdominal: Reports: difficulty swallowing Genitourinary: Reports: no symptoms Neurologic/Psychiatric: Reports: pre-existing deficit, seizure Endocrine: Reports: no symptoms Hematologic/Lymphatic: Reports: anemia Allergies: Coded Allergies: CODEINE (Verified Allergy, Unknown, HIVES, 09/15/09) All Systems: reviewed and negative except above Subjective no events. off the vent on tbar. no bleeding. h/h better after transfusion. Objective Last 24 Hour Vital Signs Date Time Temp Pulse Resp B/P (MAP) Pulse Ox O2 Delivery O2 Flow Rate FiO2 02/16/19 08:52 97 146/77 02/16/19 07:12 86 18 100 T-Piece 8.0 30 84 18 100 02/16/19 07:08 100 T-Piece 8.0 30 02/16/19 04:00 8.0 30 02/16/19 04:00 98.2 82 20 155/55 (88) 100 02/16/19 04:00 T-piece 8.0 02/16/19 03:42 89 18 100 T-Piece 8.0 30 89 18 98 02/16/19 03:28 94 02/16/19 01:38 100 T-Piece 8.0 30 02/16/19 00:00 98.4 80 20 136/60 (85) 99 02/16/19 00:00 8.0 30 02/16/19 00:00 85 02/16/19 00:00 T-piece 8.0 02/15/19 23:13 80 18 100 T-Piece 8.0 30 81 18 98 02/15/19 20:44 89 156/72 02/15/19 20:00 98.3 89 22 156/72 (100) 100 02/15/19 20:00 T-piece 8.0 02/15/19 20:00 8.0 30 02/15/19 19:25 100 T-Piece 8.0 30 02/15/19 19:25 91 18 100 T-Piece 8.0 30 88 18 100 02/15/19 19:24 88 02/15/19 18:19 99 T-Piece 8.0 30 02/15/19 16:00 T-piece 8.0 02/15/19 16:00 98.2 85 24 122/80 (94) 100 02/15/19 16:00 8.0 30 02/15/19 16:00 90 02/15/19 15:26 98 T-Piece 8.0 30 02/15/19 15:22 93 18 98 T-Piece 8.0 92 18 97 02/15/19 12:05 8.0 30 02/15/19 12:00 T-piece 8.0 02/15/19 12:00 75 02/15/19 12:00 97.9 75 24 108/75 (86) 100 02/15/19 11:15 84 18 99 T-Piece 8.0 30 83 18 99 Intake and Output 02/15/19 02/16/19 19:00 07:00 Intake Total 1625 ml 1620 ml Output Total 501 ml 801 ml Balance 1124 ml 819 ml Free Water 200 ml 300 ml IV Total 825 ml 900 ml Tube Feeding 420 ml 420 ml Other 180 ml Output Urine Total 500 ml 800 ml Stool Total 1 ml 1 ml # Bowel Movements 3 3 Laboratory Tests 02/16/19 04:10: White Blood Count 12.5H, Red Blood Count 3.08L, Hemoglobin 8.4L, Hematocrit 26.0L, Mean Corpuscular Volume 84, Mean Corpuscular Hemoglobin 27.4, Mean Corpuscular Hemoglobin Concent 32.4, Red Cell Distribution Width 14.4, Platelet Count 255, Mean Platelet Volume 4.8L, Neutrophils (%) (Auto) 69.1, Lymphocytes ( %) (Auto) 23.0, Monocytes (%) (Auto) 3.1, Eosinophils (%) (Auto) 4.1H, Basophils (%) (Auto) 0.6, Sodium Level 145, Potassium Level 3.3L, Chloride Level 111H, Carbon Dioxide Level 25, Anion Gap 9, Blood Urea Nitrogen 13, Creatinine 1.2, Estimat Glomerular Filtration Rate , Glucose Level 689*H, Calcium Level 7.0L, Magnesium Level 1.0L, Total Bilirubin 0.1L, Aspartate Amino Transf (AST/SGOT) 17, Alanine Aminotransferase (ALT/SGPT) 18, Alkaline Phosphatase 207H, Pro-B-Type Natriuretic Peptide 1001H, Total Protein 6.5, Albumin 1.8L, Globulin 4.7, Albumin/Globulin Ratio 0.4L 02/16/19 08:00: Sodium Level 143, Potassium Level 3.8, Chloride Level 106, Carbon Dioxide Level 29, Anion Gap 8, Blood Urea Nitrogen 16, Creatinine 1.2, Estimat Glomerular Filtration Rate , Glucose Level 108#H, Calcium Level 8.4L, Magnesium Level 1.2L , Total Bilirubin 0.2, Aspartate Amino Transf (AST/SGOT) 21, Alanine Aminotransferase (ALT/SGPT) 24, Alkaline Phosphatase 231H, Total Protein 7.6, Albumin 2.1L, Globulin 5.5, Albumin/Globulin Ratio 0.4L Height (Feet): 5 Height (Inches): 5.00 Weight (Pounds): 180 Objective General Appearance: WD/WN, confused Neck: supple Cardiovascular: normal rate, regular rhythm Respiratory/Chest: chest wall non-tender, rhonchi - bilaterally Abdomen: normal bowel sounds, non tender, soft, no organomegaly Edema: no edema noted Arm (L), no edema noted Arm (R), no edema noted Leg (L), no edema noted Leg (R), no edema noted Pedal (L), no edema noted Pedal (R), no edema noted Generalized Neurologic: disoriented, unresponsive, aphasia Irvin Beltrán MD Feb 16, 2019 09:11
--- NOTE | 2019-02-16 09:30 | NUR ---
NURSE NOTES: Dr. Cortez seen and examined patient at bedside. Made MD aware of low magnesium level today. Dr. Cortez acknowledged, no new orders given at this time. Noted. Will continue to monitor patient.
--- NOTE | 2019-02-16 10:02 | NUR ---
NURSE NOTES: Dr. Vaughan seen and examined patient at bedside. Informed Dr. Vaughan that patient had x [address] Vaughan acknowledged and ordered to discontinue Colace 100 mg GT QD at this time and collect C. Diff sample. Order entered, noted, and carried out. Will continue to monitor patient.
--- NOTE | 2019-02-16 10:12 | Surgery Progress Note ---
Surgery Progress Note Subjective Additional Comments on t piece fi02 40% comfortable tolerating tf at 35cc/hr pending placement Objective Last 24 Hour Vital Signs Date Time Temp Pulse Resp B/P (MAP) Pulse Ox O2 Delivery O2 Flow Rate FiO2 02/16/19 08:52 97 146/77 02/16/19 08:00 T-piece 8.0 02/16/19 08:00 97.9 97 20 146/77 (100) 98 02/16/19 08:00 85 02/16/19 08:00 8.0 30 02/16/19 07:12 86 18 100 T-Piece 8.0 30 84 18 100 02/16/19 07:08 100 T-Piece 8.0 30 02/16/19 04:00 8.0 30 02/16/19 04:00 98.2 82 20 155/55 (88) 100 02/16/19 04:00 T-piece 8.0 02/16/19 03:42 89 18 100 T-Piece 8.0 30 89 18 98 02/16/19 03:28 94 02/16/19 01:38 100 T-Piece 8.0 30 02/16/19 00:00 98.4 80 20 136/60 (85) 99 02/16/19 00:00 8.0 30 02/16/19 00:00 85 02/16/19 00:00 T-piece 8.0 02/15/19 23:13 80 18 100 T-Piece 8.0 30 81 18 98 02/15/19 20:44 89 156/72 02/15/19 20:00 98.3 89 22 156/72 (100) 100 02/15/19 20:00 T-piece 8.0 02/15/19 20:00 8.0 30 02/15/19 19:25 100 T-Piece 8.0 30 02/15/19 19:25 91 18 100 T-Piece 8.0 30 88 18 100 02/15/19 19:24 88 02/15/19 18:19 99 T-Piece 8.0 30 02/15/19 16:00 T-piece 8.0 02/15/19 16:00 98.2 85 24 122/80 (94) 100 02/15/19 16:00 8.0 30 02/15/19 16:00 90 02/15/19 15:26 98 T-Piece 8.0 30 02/15/19 15:22 93 18 98 T-Piece 8.0 92 18 97 02/15/19 12:05 8.0 30 02/15/19 12:00 T-piece 8.0 02/15/19 12:00 75 02/15/19 12:00 97.9 75 24 108/75 (86) 100 02/15/19 11:15 84 18 99 T-Piece 8.0 30 83 18 99 I&O Intake and Output 02/15/19 02/16/19 19:00 07:00 Intake Total 1625 ml 1620 ml Output Total 501 ml 801 ml Balance 1124 ml 819 ml Free Water 200 ml 300 ml IV Total 825 ml 900 ml Tube Feeding 420 ml 420 ml Other 180 ml Output Urine Total 500 ml 800 ml Stool Total 1 ml 1 ml # Bowel Movements 3 3 Dressing: saturated Wound: clean Drains: other Cardiovascular: RSR Respiratory: decreased breath sounds Abdomen: soft, present bowel sounds, non-distended Extremities: no cyanosis, other Laboratory Tests Test 02/16/19 04:10 02/16/19 08:00 White Blood Count 12.5 K/UL (4.8-10.8) H Red Blood Count 3.08 M/UL (4.20-5.40) L Hemoglobin 8.4 G/DL (12.0-16.0) L Hematocrit 26.0 % (37.0-47.0) L Mean Corpuscular Volume 84 FL (80-99) Mean Corpuscular Hemoglobin 27.4 PG (27.0-31.0) Mean Corpuscular Hemoglobin Concent 32.4 G/DL (32.0-36.0) Red Cell Distribution Width 14.4 % (11.6-14.8) Platelet Count 255 K/UL (150-450) Mean Platelet Volume 4.8 FL (6.5-10.1) L Neutrophils (%) (Auto) 69.1 % (45.0-75.0) Lymphocytes (%) (Auto) 23.0 % (20.0-45.0) Monocytes (%) (Auto) 3.1 % (1.0-10.0) Eosinophils (%) (Auto) 4.1 % (0.0-3.0) H Basophils (%) (Auto) 0.6 % (0.0-2.0) Sodium Level 145 MMOL/L (136-145) 143 MMOL/L (136-145) Potassium Level 3.3 MMOL/L (3.5-5.1) L 3.8 MMOL/L (3.5-5.1) Chloride Level 111 MMOL/L (98-107) H 106 MMOL/L (98-107) Carbon Dioxide Level 25 MMOL/L (21-32) 29 MMOL/L (21-32) Anion Gap 9 mmol/L (5-15) 8 mmol/L (5-15) Blood Urea Nitrogen 13 mg/dL (7-18) 16 mg/dL (7-18) Creatinine 1.2 MG/DL (0.55-1.30) 1.2 MG/DL (0.55-1.30) Estimat Glomerular Filtration Rate mL/min (>60) mL/min (>60) Glucose Level 689 MG/DL (74-106) *H 108 MG/DL (74-106) #H Calcium Level 7.0 MG/DL (8.5-10.1) L 8.4 MG/DL (8.5-10.1) L Magnesium Level 1.0 MG/DL (1.8-2.4) L 1.2 MG/DL (1.8-2.4) L Total Bilirubin 0.1 MG/DL (0.2-1.0) L 0.2 MG/DL (0.2-1.0) Aspartate Amino Transf (AST/SGOT) 17 U/L (15-37) 21 U/L (15-37) Alanine Aminotransferase (ALT/SGPT) 18 U/L (12-78) 24 U/L (12-78) Alkaline Phosphatase 207 U/L (46-116) H 231 U/L (46-116) H Pro-B-Type Natriuretic Peptide 1001 pg/mL (0-125) H Total Protein 6.5 G/DL (6.4-8.2) 7.6 G/DL (6.4-8.2) Albumin 1.8 G/DL (3.4-5.0) L 2.1 G/DL (3.4-5.0) L Globulin 4.7 g/dL 5.5 g/dL Albumin/Globulin Ratio 0.4 (1.0-2.7) L 0.4 (1.0-2.7) L Plan Problems: (1) Sacral decubitus ulcer Assessment & Plan: This is a 83-year-old female with multiple medical committees that is currently admitted for medical care and management and identified to have multiple wounds requiring care. On admission patient noted to have a resolved sacral decubitus ulcer. Has had prior care and is well-healed at this time. Will ensure it does not open up again. Patient has a right ischial decubitus ulcer that is resolved. Scar intact and well formed. Will monitor to ensure it does not open up again. Patient has a left ischial decubitus ulcer that can be identified to be stage IV with palpable bone that has been resolving as noted by the periwound tissue and scar but open area approximately 1 cm x 1.5 cm few millimeters deep to bone identified. Unsure if this is been to be completely healed prior and has since opened or if has been healing at this level. No foul odor no drainage was unsure local wound care until healed Bilateral heels soft without signs of injury Resolving pressure injury L ischium(L)1.8cm x (W)1cm.Scattered biofilm at base of wound. Edges flat and adherent with surrounding hyperpigmentation. No odor or exudate noted. Sacrum is pale pink with surrounding hyperpigmentation. Hyperpigmentation R ischium with small sheared area centrally.No areas of erythema or exudate noted. Both heels are soft but blanchable. Skin Assessed under collar of trach and no evidence of skin breakdown noted. All wound Tx. are effective and continued as ordered. Pt ahs an APM/Belén mattress overlay and is being repositioned per protocols and per tolerance.No new skin concerns noted. Treatment plan: Please apply skin protectant and optifoam to sacral area. Change every 3 days Please apply skin protectant and optifoam to right ischial area. Change every 3 days Please apply Thera honey infused gauze to small opening in the left ischial wound bed followed by skin protectant in the periwound and up to foam. Change daily as needed saturation Apply Xeroform and dressing over left hand blister. Offload pressure from heels with pillow Air soft mattress Turn every 2 hours Nutritional optimization We will monitor follow with recommendations (2) Sepsis Assessment & Plan: IV abx as per ID trend labs improving wounds unlikely etiology likely respiratory imaging noted and okay abnormal lft's stable PICC on Abx improved d/c (3) Feeding by G-tube Assessment & Plan: DAILY ESTIMATED NEEDS: Needs based on Pulmonary, wounds, bedbound/ 60kg adj 25-28 kcals/kg 7070-1213 total kcals 1.25-2 g protein/kg 75-120 g total protein 25-30 mL/kg 6685-8214 total fluid mLs NUTRITION DIAGNOSIS: * Swallowing difficulty R/T respiratory status as evidenced by pt on T-collar, now back the vent, PEG dep, TF held at this time due to episodes of vomiting. * Increased kcal/prot needs R/T wound healing as evidenced by BL buttocks and sacral wound photos, refer to eval. CURRENT TF:Jevity 1.2 @ 40ml/hr x 24 hrs -> TF ORDER DC'ED THIS AM ENTERAL NUTRITION RECOMMENDATIONS: Osmolite 1.2 @ 55ml/hr x 24 hrs + Prosource 1pkt QD to provide 1320ml, 1584kcal , 73g +11g prot, 1060ml free water - Once medically appropriate to resume TF, rec to initiate isotonic formula of Osmolite 1.2 for possible improved tolerance - Initiate Osmolite 1.2 @ 25ml/hr x 6hrs, advance 10ml q 4-6 hrs as tolerated to goal rate - W/ good TF tolerance at goal, add Prosource 1pkt daily to meet protein needs - Flush per MD/ HOB over 30 degrees ADDITIONAL RECOMMENDATIONS: 1) Re-calibrated bedscale wt for accurate CBW 2) Wound healing: Add Cristian 1pkt BID + MVI x 1 Pt w/ full thickness resolving wound 3) Monitor lytes, replete as needed 4) Monitor NPO status, ability to resume TF. -> held on and off due to vomitting since 02/02, TF dc'ed on 02/06. (4) Chronic vegetative state Assessment & Plan: incontinence of urine and stool. can soil dressings. nurses doing great job with monitoring and changing prn (5) Leukocytosis Walter Madera Feb 16, 2019 10:12
--- NOTE | 2019-02-16 10:37 | Nephrology Progress Note ---
Assessment/Plan Problem List: (1) Acute renal failure (ARF) Assessment: Cr stable (2) Chronic respiratory failure (3) Anemia (4) Sepsis Assessment Acute renal failure Respiratory failure - Trach Low Mag- Low k , Low Na Anemia UTI / Sepsis Proteinuria / HypoAlbuminemia high Trigs Sz decubs bed bound DNR Plan K and Mag and Phos supplement as needed Hydrate Urine studies avoid Nephrotoxics mag K Phos supplements as needed monitor renal parameters Subjective ROS Limited/Unobtainable: Yes Objective Objective Last 24 Hour Vital Signs Date Time Temp Pulse Resp B/P (MAP) Pulse Ox O2 Delivery O2 Flow Rate FiO2 02/16/19 08:52 97 146/77 02/16/19 08:00 T-piece 8.0 02/16/19 08:00 97.9 97 20 146/77 (100) 98 02/16/19 08:00 85 02/16/19 08:00 8.0 30 02/16/19 07:12 86 18 100 T-Piece 8.0 30 84 18 100 02/16/19 07:08 100 T-Piece 8.0 30 02/16/19 04:00 8.0 30 02/16/19 04:00 98.2 82 20 155/55 (88) 100 02/16/19 04:00 T-piece 8.0 02/16/19 03:42 89 18 100 T-Piece 8.0 30 89 18 98 02/16/19 03:28 94 02/16/19 01:38 100 T-Piece 8.0 30 02/16/19 00:00 98.4 80 20 136/60 (85) 99 02/16/19 00:00 8.0 30 02/16/19 00:00 85 02/16/19 00:00 T-piece 8.0 02/15/19 23:13 80 18 100 T-Piece 8.0 30 81 18 98 02/15/19 20:44 89 156/72 02/15/19 20:00 98.3 89 22 156/72 (100) 100 02/15/19 20:00 T-piece 8.0 02/15/19 20:00 8.0 30 02/15/19 19:25 100 T-Piece 8.0 30 02/15/19 19:25 91 18 100 T-Piece 8.0 30 88 18 100 02/15/19 19:24 88 11/17/19 18:19 99 T-Piece 8.0 30 02/15/19 16:00 T-piece 8.0 02/15/19 16:00 98.2 85 24 122/80 (94) 100 02/15/19 16:00 8.0 30 02/15/19 16:00 90 02/15/19 15:26 98 T-Piece 8.0 30 02/15/19 15:22 93 18 98 T-Piece 8.0 92 18 97 02/15/19 12:05 8.0 30 02/15/19 12:00 T-piece 8.0 02/15/19 12:00 75 02/15/19 12:00 97.9 75 24 108/75 (86) 100 02/15/19 11:15 84 18 99 T-Piece 8.0 30 83 18 99 Intake and Output 02/15/19 02/16/19 19:00 07:00 Intake Total 1625 ml 1620 ml Output Total 501 ml 801 ml Balance 1124 ml 819 ml Free Water 200 ml 300 ml IV Total 825 ml 900 ml Tube Feeding 420 ml 420 ml Other 180 ml Output Urine Total 500 ml 800 ml Stool Total 1 ml 1 ml # Bowel Movements 3 3 Laboratory Tests 02/16/19 04:10: White Blood Count 12.5H, Red Blood Count 3.08L, Hemoglobin 8.4L, Hematocrit 26.0L, Mean Corpuscular Volume 84, Mean Corpuscular Hemoglobin 27.4, Mean Corpuscular Hemoglobin Concent 32.4, Red Cell Distribution Width 14.4, Platelet Count 255, Mean Platelet Volume 4.8L, Neutrophils (%) (Auto) 69.1, Lymphocytes ( %) (Auto) 23.0, Monocytes (%) (Auto) 3.1, Eosinophils (%) (Auto) 4.1H, Basophils (%) (Auto) 0.6, Sodium Level 145, Potassium Level 3.3L, Chloride Level 111H, Carbon Dioxide Level 25, Anion Gap 9, Blood Urea Nitrogen 13, Creatinine 1.2, Estimat Glomerular Filtration Rate , Glucose Level 689*H, Calcium Level 7.0L, Magnesium Level 1.0L, Total Bilirubin 0.1L, Aspartate Amino Transf (AST/SGOT) 17, Alanine Aminotransferase (ALT/SGPT) 18, Alkaline Phosphatase 207H, Pro-B-Type Natriuretic Peptide 1001H, Total Protein 6.5, Albumin 1.8L, Globulin 4.7, Albumin/Globulin Ratio 0.4L 02/16/19 08:00: Sodium Level 143, Potassium Level 3.8, Chloride Level 106, Carbon Dioxide Level 29, Anion Gap 8, Blood Urea Nitrogen 16, Creatinine 1.2, Estimat Glomerular Filtration Rate , Glucose Level 108#H, Calcium Level 8.4L, Magnesium Level 1.2L , Total Bilirubin 0.2, Aspartate Amino Transf (AST/SGOT) 21, Alanine Aminotransferase (ALT/SGPT) 24, Alkaline Phosphatase 231H, Total Protein 7.6, Albumin 2.1L, Globulin 5.5, Albumin/Globulin Ratio 0.4L Height (Feet): 5 Height (Inches): 5.00 Weight (Pounds): 180 General Appearance: no apparent distress Cardiovascular: tachycardia Respiratory/Chest: decreased breath sounds Abdomen: distended Eric Cortez MD Feb 16, 2019 10:37
--- NOTE | 2019-02-16 11:32 | Infectious Diseases Prog Note ---
Assessment/Plan Assessment/Plan antibiotics : ceftriaxone A 1. UTI with proteus s/p rx 2. respiratory failure 3. hypertension 4. CVA 5. dementia 6. sacral decubitus ulcer 7. rectal VRE colonization 8. leucocytosis improving 9. renal failure P 1. d/c ceftriaxone 2. observe off antibiotics 3. will follow up cultures Subjective ROS Limited/Unobtainable: Yes Allergies: Coded Allergies: CODEINE (Verified Allergy, Unknown, HIVES, 09/15/09) Objective Vital Signs Last 24 Hour Vital Signs Date Time Temp Pulse Resp B/P (MAP) Pulse Ox O2 Delivery O2 Flow Rate FiO2 02/16/19 10:51 83 18 100 T-Piece 8.0 30 81 18 100 02/16/19 08:52 97 146/77 02/16/19 08:00 T-piece 8.0 02/16/19 08:00 97.9 97 20 146/77 (100) 98 02/16/19 08:00 85 02/16/19 08:00 8.0 30 02/16/19 07:12 86 18 100 T-Piece 8.0 30 84 18 100 02/16/19 07:08 100 T-Piece 8.0 30 02/16/19 04:00 8.0 30 02/16/19 04:00 98.2 82 20 155/55 (88) 100 02/16/19 04:00 T-piece 8.0 02/16/19 03:42 89 18 100 T-Piece 8.0 30 89 18 98 02/16/19 03:28 94 02/16/19 01:38 100 T-Piece 8.0 30 02/16/19 00:00 98.4 80 20 136/60 (85) 99 02/16/19 00:00 8.0 30 02/16/19 00:00 85 02/16/19 00:00 T-piece 8.0 02/15/19 23:13 80 18 100 T-Piece 8.0 30 81 18 98 02/15/19 20:44 89 156/72 02/15/19 20:00 98.3 89 22 156/72 (100) 100 02/15/19 20:00 T-piece 8.0 02/15/19 20:00 8.0 30 02/15/19 19:25 100 T-Piece 8.0 30 02/15/19 19:25 91 18 100 T-Piece 8.0 30 88 18 100 02/15/19 19:24 88 02/15/19 18:19 99 T-Piece 8.0 30 02/15/19 16:00 T-piece 8.0 02/15/19 16:00 98.2 85 24 122/80 (94) 100 02/15/19 16:00 8.0 30 02/15/19 16:00 90 02/15/19 15:26 98 T-Piece 8.0 30 02/15/19 15:22 93 18 98 T-Piece 8.0 92 18 97 02/15/19 12:05 8.0 30 02/15/19 12:00 T-piece 8.0 02/15/19 12:00 75 02/15/19 12:00 97.9 75 24 108/75 (86) 100 Height (Feet): 5 Height (Inches): 5.00 Weight (Pounds): 180 HEENT: status post trach Respiratory/Chest: lungs clear Cardiovascular: normal rate, regular rhythm, no gallop/murmur Abdomen: soft, non tender, other - GT Extremities: no edema Laboratory Tests Test 02/16/19 04:10 02/16/19 08:00 White Blood Count 12.5 K/UL (4.8-10.8) H Red Blood Count 3.08 M/UL (4.20-5.40) L Hemoglobin 8.4 G/DL (12.0-16.0) L Hematocrit 26.0 % (37.0-47.0) L Mean Corpuscular Volume 84 FL (80-99) Mean Corpuscular Hemoglobin 27.4 PG (27.0-31.0) Mean Corpuscular Hemoglobin Concent 32.4 G/DL (32.0-36.0) Red Cell Distribution Width 14.4 % (11.6-14.8) Platelet Count 255 K/UL (150-450) Mean Platelet Volume 4.8 FL (6.5-10.1) L Neutrophils (%) (Auto) 69.1 % (45.0-75.0) Lymphocytes (%) (Auto) 23.0 % (20.0-45.0) Monocytes (%) (Auto) 3.1 % (1.0-10.0) Eosinophils (%) (Auto) 4.1 % (0.0-3.0) H Basophils (%) (Auto) 0.6 % (0.0-2.0) Sodium Level 145 MMOL/L (136-145) 143 MMOL/L (136-145) Potassium Level 3.3 MMOL/L (3.5-5.1) L 3.8 MMOL/L (3.5-5.1) Chloride Level 111 MMOL/L (98-107) H 106 MMOL/L (98-107) Carbon Dioxide Level 25 MMOL/L (21-32) 29 MMOL/L (21-32) Anion Gap 9 mmol/L (5-15) 8 mmol/L (5-15) Blood Urea Nitrogen 13 mg/dL (7-18) 16 mg/dL (7-18) Creatinine 1.2 MG/DL (0.55-1.30) 1.2 MG/DL (0.55-1.30) Estimat Glomerular Filtration Rate mL/min (>60) mL/min (>60) Glucose Level 689 MG/DL (74-106) *H 108 MG/DL (74-106) #H Calcium Level 7.0 MG/DL (8.5-10.1) L 8.4 MG/DL (8.5-10.1) L Magnesium Level 1.0 MG/DL (1.8-2.4) L 1.2 MG/DL (1.8-2.4) L Total Bilirubin 0.1 MG/DL (0.2-1.0) L 0.2 MG/DL (0.2-1.0) Aspartate Amino Transf (AST/SGOT) 17 U/L (15-37) 21 U/L (15-37) Alanine Aminotransferase (ALT/SGPT) 18 U/L (12-78) 24 U/L (12-78) Alkaline Phosphatase 207 U/L (46-116) H 231 U/L (46-116) H Pro-B-Type Natriuretic Peptide 1001 pg/mL (0-125) H Total Protein 6.5 G/DL (6.4-8.2) 7.6 G/DL (6.4-8.2) Albumin 1.8 G/DL (3.4-5.0) L 2.1 G/DL (3.4-5.0) L Globulin 4.7 g/dL 5.5 g/dL Albumin/Globulin Ratio 0.4 (1.0-2.7) L 0.4 (1.0-2.7) L Current Medications Medications (Trade) Dose Ordered Sig/Maicol Route PRN Reason Start Time Stop Time Status Last Admin Dose Admin Acetaminophen (Tylenol) 650 mg Q4H PRN GT Mild Pain/Temp > 100.5 02/03/19 19:30 03/05/19 19:29 02/07/19 00:13 Acetylcysteine (Mucomyst) 100 mg Q4HRT HHN 02/01/19 15:00 03/03/19 12:59 02/16/19 10:51 Albuterol/ Ipratropium (Albuterol/ Ipratropium) 3 ml Q4H PRN HHN Shortness of Breath 02/12/19 20:30 02/17/19 20:29 02/16/19 10:51 Ascorbic Acid (Vitamin C) 250 mg DAILY GT 02/09/19 09:00 02/24/19 08:59 02/16/19 08:51 Atropine Sulfate (Atropine Opth Adriana) 1 drop TID SL 02/10/19 09:30 03/12/19 09:29 02/16/19 08:50 Bisacodyl (Dulcolax) 10 mg PRN PRN RECTAL Constipation 01/24/19 05:30 02/23/19 05:29 Ceftriaxone Sodium 1 gm/ Dextrose 55 ml @ 110 mls/hr Q24H IVPB 02/11/19 14:00 02/18/19 13:59 02/15/19 13:34 Chlorhexidine Gluconate (Cesilia-Hex 2%) 1 applic DAILY@2000 TOPIC 02/10/19 20:00 03/12/19 19:59 02/15/19 20:44 Heparin Sodium (Porcine) (Heparin 5000 units/ml) 5,000 units EVERY 12 HOURS SUBQ 02/14/19 23:15 03/16/19 23:14 02/16/19 08:58 Hydralazine HCl (Apresoline) 25 mg Q4H PRN GT SBP above 160 02/08/19 15:15 03/09/19 16:29 Levetiracetam (Keppra) 750 mg Q12HR GT 02/14/19 23:30 03/16/19 23:29 02/16/19 08:51 Magnesium Sulfate 100 ml @ 100 mls/hr Q1H IVPB 02/16/19 11:00 02/16/19 16:59 Metoclopramide HCl (Reglan) 10 mg Q6H PRN IVP Nausea & Vomiting 02/07/19 09:00 03/09/19 08:59 Metoprolol Tartrate (Lopressor) 25 mg Q12HR GT 02/14/19 23:30 03/16/19 23:29 02/16/19 08:52 Ondansetron HCl (Zofran) 4 mg Q6H PRN GT Nausea & Vomiting 01/24/19 05:30 02/23/19 05:29 02/06/19 10:30 Pantoprazole (Protonix) 40 mg Q12HR IVP 02/14/19 23:30 03/16/19 23:29 02/16/19 08:52 Geovany Yang MD Feb 16, 2019 11:32
[2019-02-16 12:00] VITALS: BP 141/62
--- NOTE | 2019-02-16 12:08 | Pulmonology Progress Note ---
Assessment/Plan Assessment/Plan Impression: Sepsis syndrome Pneumonia VDRF, Trach, G tube, Hypertension, Cardiac disease, Dementia, Previous CVA, Seizure disorder, Respiratory failure with hypoxia Anemia Sacral ulcer renal cyst Plan respiratory care mucomyst and duoneb SNF meds as is still needs respiratory support full vent support as needed Oxygen as needed Monitor labs for change changes noted Patient is a DNR. No CPR. dc planning per family and primary impression, plan, and exam edited and reviewed in detail care discussed with RN Subjective ROS Limited/Unobtainable: Yes Allergies: Coded Allergies: CODEINE (Verified Allergy, Unknown, HIVES, 09/15/09) Subjective respiratory care noted noted congestion- persistent supportive care noted RT care reviewed overnight care noted placement pending Objective Last 24 Hour Vital Signs Date Time Temp Pulse Resp B/P (MAP) Pulse Ox O2 Delivery O2 Flow Rate FiO2 02/16/19 10:51 83 18 100 T-Piece 8.0 30 81 18 100 02/16/19 08:52 97 146/77 02/16/19 08:00 T-piece 8.0 02/16/19 08:00 97.9 97 20 146/77 (100) 98 02/16/19 08:00 85 02/16/19 08:00 8.0 30 02/16/19 07:12 86 18 100 T-Piece 8.0 30 84 18 100 02/16/19 07:08 100 T-Piece 8.0 30 02/16/19 04:00 8.0 30 02/16/19 04:00 98.2 82 20 155/55 (88) 100 02/16/19 04:00 T-piece 8.0 02/16/19 03:42 89 18 100 T-Piece 8.0 30 89 18 98 02/16/19 03:28 94 02/16/19 01:38 100 T-Piece 8.0 30 02/16/19 00:00 98.4 80 20 136/60 (85) 99 02/16/19 00:00 8.0 30 02/16/19 00:00 85 02/16/19 00:00 T-piece 8.0 02/15/19 23:13 80 18 100 T-Piece 8.0 30 81 18 98 02/15/19 20:44 89 156/72 02/15/19 20:00 98.3 89 22 156/72 (100) 100 02/15/19 20:00 T-piece 8.0 02/15/19 20:00 8.0 30 02/15/19 19:25 100 T-Piece 8.0 30 02/15/19 19:25 91 18 100 T-Piece 8.0 30 88 18 100 02/15/19 19:24 88 02/15/19 18:19 99 T-Piece 8.0 30 02/15/19 16:00 T-piece 8.0 02/15/19 16:00 98.2 85 24 122/80 (94) 100 02/15/19 16:00 8.0 30 02/15/19 16:00 90 02/15/19 15:26 98 T-Piece 8.0 30 02/15/19 15:22 93 18 98 T-Piece 8.0 92 18 97 Intake and Output 02/15/19 02/16/19 19:00 07:00 Intake Total 1625 ml 1620 ml Output Total 501 ml 801 ml Balance 1124 ml 819 ml Free Water 200 ml 300 ml IV Total 825 ml 900 ml Tube Feeding 420 ml 420 ml Other 180 ml Output Urine Total 500 ml 800 ml Stool Total 1 ml 1 ml # Bowel Movements 3 3 Objective WDWN NAD contracted on vent reduced breath sounds bilaterally with scattered rhonchi same [id number] without MRG NABS nontender no HSM no CC minimal nonfocal nonverbal trach and gt reviewed and edited Laboratory Tests 02/16/19 04:10: White Blood Count 12.5H, Red Blood Count 3.08L, Hemoglobin 8.4L, Hematocrit 26.0L, Mean Corpuscular Volume 84, Mean Corpuscular Hemoglobin 27.4, Mean Corpuscular Hemoglobin Concent 32.4, Red Cell Distribution Width 14.4, Platelet Count 255, Mean Platelet Volume 4.8L, Neutrophils (%) (Auto) 69.1, Lymphocytes ( %) (Auto) 23.0, Monocytes (%) (Auto) 3.1, Eosinophils (%) (Auto) 4.1H, Basophils (%) (Auto) 0.6, Sodium Level 145, Potassium Level 3.3L, Chloride Level 111H, Carbon Dioxide Level 25, Anion Gap 9, Blood Urea Nitrogen 13, Creatinine 1.2, Estimat Glomerular Filtration Rate , Glucose Level 689*H, Calcium Level 7.0L, Magnesium Level 1.0L, Total Bilirubin 0.1L, Aspartate Amino Transf (AST/SGOT) 17, Alanine Aminotransferase (ALT/SGPT) 18, Alkaline Phosphatase 207H, Pro-B-Type Natriuretic Peptide 1001H, Total Protein 6.5, Albumin 1.8L, Globulin 4.7, Albumin/Globulin Ratio 0.4L 02/16/19 08:00: Sodium Level 143, Potassium Level 3.8, Chloride Level 106, Carbon Dioxide Level 29, Anion Gap 8, Blood Urea Nitrogen 16, Creatinine 1.2, Estimat Glomerular Filtration Rate , Glucose Level 108#H, Calcium Level 8.4L, Magnesium Level 1.2L , Total Bilirubin 0.2, Aspartate Amino Transf (AST/SGOT) 21, Alanine Aminotransferase (ALT/SGPT) 24, Alkaline Phosphatase 231H, Total Protein 7.6, Albumin 2.1L, Globulin 5.5, Albumin/Globulin Ratio 0.4L Current Medications Medications (Trade) Dose Ordered Sig/Maicol Route PRN Reason Start Time Stop Time Status Last Admin Dose Admin Acetaminophen (Tylenol) 650 mg Q4H PRN GT Mild Pain/Temp > 100.5 02/03/19 19:30 03/05/19 19:29 02/07/19 00:13 Acetylcysteine (Mucomyst) 100 mg Q4HRT HHN 02/01/19 15:00 03/03/19 12:59 02/16/19 10:51 Albuterol/ Ipratropium (Albuterol/ Ipratropium) 3 ml Q4H PRN HHN Shortness of Breath 02/12/19 20:30 02/17/19 20:29 02/16/19 10:51 Ascorbic Acid (Vitamin C) 250 mg DAILY GT 02/09/19 09:00 02/24/19 08:59 02/16/19 08:51 Atropine Sulfate (Atropine Opth Adriana) 1 drop TID SL 02/10/19 09:30 03/12/19 09:29 02/16/19 11:53 Bisacodyl (Dulcolax) 10 mg PRN PRN RECTAL Constipation 01/24/19 05:30 02/23/19 05:29 Chlorhexidine Gluconate (Cesilia-Hex 2%) 1 applic DAILY@1999 TOPIC 02/10/19 20:00 03/12/19 19:59 02/15/19 20:44 Heparin Sodium (Porcine) (Heparin 5000 units/ml) 5,000 units EVERY 12 HOURS SUBQ 02/14/19 23:15 03/16/19 23:14 02/16/19 08:58 Hydralazine HCl (Apresoline) 25 mg Q4H PRN GT SBP above 160 02/08/19 15:15 03/09/19 16:29 Levetiracetam (Keppra) 750 mg Q12HR GT 02/14/19 23:30 03/16/19 23:29 02/16/19 08:51 Magnesium Sulfate 100 ml @ 100 mls/hr Q1H IVPB 02/16/19 11:00 02/16/19 16:59 02/16/19 11:53 Metoclopramide HCl (Reglan) 10 mg Q6H PRN IVP Nausea & Vomiting 02/07/19 09:00 03/09/19 08:59 Metoprolol Tartrate (Lopressor) 25 mg Q12HR GT 02/14/19 23:30 03/16/19 23:29 02/16/19 08:52 Ondansetron HCl (Zofran) 4 mg Q6H PRN GT Nausea & Vomiting 01/24/19 05:30 02/23/19 05:29 02/06/19 10:30 Pantoprazole (Protonix) 40 mg Q12HR IVP 02/14/19 23:30 03/16/19 23:29 02/16/19 08:52 Amaury Chan MD Feb 16, 2019 12:08
--- NOTE | 2019-02-16 13:35 | NUR ---
NURSE NOTES: C. Diff sample taken to lab. Noted.
--- NOTE | 2019-02-16 15:45 | Progress Note ---
DATE: 02/16/2019 CARDIOLOGY PROGRESS NOTE SUBJECTIVE: The patient remains on ventilator support at times and G-tube mostly over the past two days with no distress. Packed red blood cell transfusion was given on February 14. She has not had any seizures. Monitored rhythm remains sinus with rare nonsustained ectopic. OBJECTIVE: VITAL SIGNS: Blood pressure 146/77, pulse 85, respirations 20. NECK: Thin secretions. LUNGS: Bilateral rhonchi. CARDIOVASCULAR: Regular rhythm and rate. Normal S1, S2. No murmur appreciated due to loud respiratory sounds. ABDOMEN: Soft. G-tube intact. EXTREMITIES: Trace dependent edema. LABORATORY DATA: White count 12.5, hemoglobin 8.4. Potassium 3.8, BUN 16, creatinine 1.2. Magnesium is 1.2. Pro-natriuretic peptide is 1000. IMPRESSION: 1. Hypomagnesemia. 2. Severe protein-calorie malnutrition. 3. Acute on chronic diastolic congestive heart failure. 4. Hypokalemia. 5. Respiratory failure with sepsis. 6. Polymicrobial healthcare-acquired pneumonia. PLAN: 1. Additional diuresis. 2. Additional IV magnesium. 3. Monitor and replace potassium as needed. 4. Antimicrobials per Infectious Disease cisco consultant. 5. Respiratory hygiene. 6. Trach care. 7. Nutrition by feeding tube. 8. Titrate antihypertensives based on clinical parameters. Bg Hagen M.D. DR: SHIRA JOB#: [id number] CC:
[2019-02-16 16:00] VITALS: BP 145/74
--- NOTE | 2019-02-16 19:28 | NUR ---
HAND-OFF: Report given to JEANNINE Marion.
--- NOTE | 2019-02-16 19:42 | NUR ---
NURSE NOTES: Received patient from Ronn Anderson RN. patient is observed in bed, obtunded, unable to make needs known. no s/sx of pain noted at this time. daughter is at bedside. patient is on T-piece, FiO2: 30%, tolerating well, saturating at 100%. no s/sx of respiratory distress noted at this time. cardiac cath technologist shows NSR with current HR of 79; no acute cardiac distress noted. G-tube site is patent and intact, running Glucerna 1.5 at 35 cc/hr. HOB elevated, no residual noted. Purewick to suction, pale fernanod urine noted in canister. skin alterations noted. JOSY PICC noted, running fluids TKO, dressing dry and intact. bed in lowest position and locked, padded siderails up X3, call light within reach. will continue to monitor.
[2019-02-16 20:00] VITALS: BP 138/55
[2019-02-16] MEDS: Dyna-Hex 2% Top Sol 2oz TOPIC SCH (20:35)
--- NOTE | 2019-02-16 20:37 | General Progress Note ---
Assessment/Plan Status: stable, progressing Assessment/Plan: Assessment - N/V - suspect due to gastroparesis - better today - will hold off on G to J conversion per daughter request - Elevated Alk phos / LFT - CT negative - abd U/S negative - will check non-contrast CT of liver in am - check hepatitis serologies - Anemia with OB (-) stools - Resp failure, s/p Trach - dysphagia, s/p PEG - OBS - poor Px Recommendations - laxative PRN - continue TF - aspiration precautions - elevate HOB - may need contrast CT or MRI (latter difficult on vent and in MRI trailer) - PPI - Elevate HOB Subjective Allergies: Coded Allergies: CODEINE (Verified Allergy, Unknown, HIVES, 09/15/09) Subjective Seen earlier today tolerating TF Objective Last 24 Hour Vital Signs Date Time Temp Pulse Resp B/P (MAP) Pulse Ox O2 Delivery O2 Flow Rate FiO2 02/16/19 20:00 8.0 30 02/16/19 20:00 98.4 81 20 138/55 (82) 98 02/16/19 20:00 T-piece 8.0 02/16/19 19:16 91 18 100 T-Piece 8.0 30 88 18 97 02/16/19 19:16 98 T-Piece 8.0 30 02/16/19 16:00 76 02/16/19 16:00 97.7 93 20 145/74 (97) 100 02/16/19 16:00 8.0 30 02/16/19 16:00 T-piece 8.0 02/16/19 15:16 82 18 100 T-Piece 8.0 30 78 18 100 02/16/19 13:22 99 T-Piece 8.0 30 02/16/19 12:00 98.1 79 20 141/62 (88) 99 02/16/19 12:00 8.0 30 02/16/19 12:00 77 02/16/19 12:00 T-piece 8.0 02/16/19 10:51 83 18 100 T-Piece 8.0 30 81 18 100 02/16/19 08:52 97 146/77 02/16/19 08:00 T-piece 8.0 02/16/19 08:00 97.9 97 20 146/77 (100) 98 02/16/19 08:00 85 02/16/19 08:00 8.0 30 02/16/19 07:12 86 18 100 T-Piece 8.0 30 84 18 100 02/16/19 07:08 100 T-Piece 8.0 30 02/16/19 04:00 8.0 30 02/16/19 04:00 98.2 82 20 155/55 (88) 100 02/16/19 04:00 T-piece 8.0 02/16/19 03:42 89 18 100 T-Piece 8.0 30 89 18 98 02/16/19 03:28 94 02/16/19 01:38 100 T-Piece 8.0 30 02/16/19 00:00 98.4 80 20 136/60 (85) 99 02/16/19 00:00 8.0 30 02/16/19 00:00 85 02/16/19 00:00 T-piece 8.0 02/15/19 23:13 80 18 100 T-Piece 8.0 30 81 18 98 02/15/19 20:44 89 156/72 Intake and Output 02/15/19 02/16/19 19:00 07:00 Intake Total 1625 ml 1620 ml Output Total 501 ml 801 ml Balance 1124 ml 819 ml Free Water 200 ml 300 ml IV Total 825 ml 900 ml Tube Feeding 420 ml 420 ml Other 180 ml Output Urine Total 500 ml 800 ml Stool Total 1 ml 1 ml # Bowel Movements 3 3 Laboratory Tests 02/16/19 04:10: White Blood Count 12.5H, Red Blood Count 3.08L, Hemoglobin 8.4L, Hematocrit 26.0L, Mean Corpuscular Volume 84, Mean Corpuscular Hemoglobin 27.4, Mean Corpuscular Hemoglobin Concent 32.4, Red Cell Distribution Width 14.4, Platelet Count 255, Mean Platelet Volume 4.8L, Neutrophils (%) (Auto) 69.1, Lymphocytes ( %) (Auto) 23.0, Monocytes (%) (Auto) 3.1, Eosinophils (%) (Auto) 4.1H, Basophils (%) (Auto) 0.6, Sodium Level 145, Potassium Level 3.3L, Chloride Level 111H, Carbon Dioxide Level 25, Anion Gap 9, Blood Urea Nitrogen 13, Creatinine 1.2, Estimat Glomerular Filtration Rate , Glucose Level 689*H, Calcium Level 7.0L, Magnesium Level 1.0L, Total Bilirubin 0.1L, Aspartate Amino Transf (AST/SGOT) 17, Alanine Aminotransferase (ALT/SGPT) 18, Alkaline Phosphatase 207H, Pro-B-Type Natriuretic Peptide 1001H, Total Protein 6.5, Albumin 1.8L, Globulin 4.7, Albumin/Globulin Ratio 0.4L 02/16/19 08:00: Sodium Level 143, Potassium Level 3.8, Chloride Level 106, Carbon Dioxide Level 29, Anion Gap 8, Blood Urea Nitrogen 16, Creatinine 1.2, Estimat Glomerular Filtration Rate , Glucose Level 108#H, Calcium Level 8.4L, Magnesium Level 1.2L , Total Bilirubin 0.2, Aspartate Amino Transf (AST/SGOT) 21, Alanine Aminotransferase (ALT/SGPT) 24, Alkaline Phosphatase 231H, Total Protein 7.6, Albumin 2.1L, Globulin 5.5, Albumin/Globulin Ratio 0.4L Height (Feet): 5 Height (Inches): 5.00 Weight (Pounds): 180 Objective Debilitated AA woman NCAT (+) trach coarse ronchi RR obese abd Celio Vaughan MD Feb 16, 2019 20:36
[2019-02-17] VITALS (7 sets, daily range): BP systolic 110–140; BP diastolic 52–72
[2019-02-17] MEDS: Albuterol/Ipratropium 3ml neb HHN PRN ×4 (03:12→14:56)
[2019-02-17 05:15] LABS: BASOPHILS % (AUTO) 0.7 % (0.0-2.0); EOSINOPHILS % (AUTO) 3.5 % (0.0-3.0); HEMATOCRIT 29.2 % (37.0-47.0); HEMOGLOBIN 9.8 G/DL (12.0-16.0); LYMPHOCYTES % (AUTO) 24.2 % (20.0-45.0); MEAN CORPUSCULAR VOLUME 82 FL (80-99); MONOCYTES % (AUTO) 3.4 % (1.0-10.0); NEUTROPHILS % (AUTO) 68.3 % (45.0-75.0); PLATELET COUNT 270 K/UL (150-450); RED BLOOD COUNT 3.56 M/UL (4.20-5.40); RED CELL DISTRIBUTION WIDTH 14.1 % (11.6-14.8); WHITE BLOOD COUNT 12.6 K/UL (4.8-10.8)
[2019-02-17 05:34] LABS: PHOSPHORUS 3.9 MG/DL (2.5-4.9)
[2019-02-17 05:37] LABS: ALANINE AMINOTRANSFERASE 23 U/L (12-78); ALBUMIN 2.3 G/DL (3.4-5.0); ALBUMIN/GLOBULIN RATIO 0.4 (1.0-2.7); ALKALINE PHOSPHATASE 214 U/L (46-116); ANION GAP 5 mmol/L (5-15); ASPARTATE AMINO TRANSFERASE 20 U/L (15-37); BILIRUBIN,TOTAL 0.2 MG/DL (0.2-1.0); BLOOD UREA NITROGEN 16 mg/dL (7-18); CALCIUM 8.7 MG/DL (8.5-10.1); CARBON DIOXIDE 32 MMOL/L (21-32); CHLORIDE 103 MMOL/L (98-107); CREATININE 1.1 MG/DL (0.55-1.30); POTASSIUM 3.9 MMOL/L (3.5-5.1); SODIUM 140 MMOL/L (136-145)
--- NOTE | 2019-02-17 07:12 | NUR ---
HAND-OFF: Report given to Ronn Anderson RN. patient is in stable condition.
--- NOTE | 2019-02-17 07:27 | NUR ---
NURSE NOTES: Received report from JEANNINE Marion. Patient is resting in bed, in stable condition. No s/sx of SOB, breathing is even and unlabored, patient is on T-piece with SpO2 of 100%. Observed no presence of pain or discomfort at this time. Bed is in lowest position, brakes engaged. Call light is kept within easy reach. Will continue to monitor patient.
--- NOTE | 2019-02-17 08:24 | Pulmonology Progress Note ---
Assessment/Plan Assessment/Plan Impression: Sepsis syndrome Pneumonia VDRF, Trach, G tube, Hypertension, Cardiac disease, Dementia, Previous CVA, Seizure disorder, Respiratory failure with hypoxia Anemia Sacral ulcer renal cyst Plan respiratory care mucomyst and duoneb SNF meds as is still needs respiratory support full vent support as needed Oxygen as needed Monitor labs for change changes noted Patient is a DNR. No CPR. dc planning per family and primary impression, plan, and exam edited and reviewed in detail care discussed with RN Subjective ROS Limited/Unobtainable: Yes Allergies: Coded Allergies: CODEINE (Verified Allergy, Unknown, HIVES, 09/15/09) Subjective respiratory care noted congestion- persistent supportive care noted and reviewed RT care reviewed overnight care noted placement pending Objective Last 24 Hour Vital Signs Date Time Temp Pulse Resp B/P (MAP) Pulse Ox O2 Delivery O2 Flow Rate FiO2 02/17/19 07:28 96 T-Piece 8.0 30 02/17/19 07:28 77 18 99 T-Piece 8.0 30 75 18 96 02/17/19 04:00 8.0 30 02/17/19 04:00 T-piece 8.0 02/17/19 04:00 97.9 76 18 123/64 (83) 96 02/17/19 03:48 75 02/17/19 03:13 74 18 100 T-Piece 8.0 30 73 18 97 02/17/19 01:17 99 T-Piece 8.0 30 02/17/19 00:00 98.0 75 20 124/52 (76) 100 02/17/19 00:00 T-piece 8.0 02/16/19 23:32 89 18 100 T-Piece 8.0 30 86 18 98 02/16/19 23:24 69 02/16/19 20:35 81 138/55 02/16/19 20:00 8.0 30 02/16/19 20:00 98.4 81 20 138/55 (82) 98 02/16/19 20:00 T-piece 8.0 02/16/19 20:00 77 02/16/19 19:16 91 18 100 T-Piece 8.0 30 88 18 97 02/16/19 19:16 98 T-Piece 8.0 30 02/16/19 16:00 76 02/16/19 16:00 97.7 93 20 145/74 (97) 100 02/16/19 16:00 8.0 30 02/16/19 16:00 T-piece 8.0 02/16/19 15:16 82 18 100 T-Piece 8.0 30 78 18 100 02/16/19 13:22 99 T-Piece 8.0 30 02/16/19 12:00 98.1 79 20 141/62 (88) 99 02/16/19 12:00 8.0 30 02/16/19 12:00 77 02/16/19 12:00 T-piece 8.0 02/16/19 10:51 83 18 100 T-Piece 8.0 30 81 18 100 02/16/19 08:52 97 146/77 Intake and Output 02/16/19 02/17/19 19:00 07:00 Intake Total 1220 ml 240 ml Output Total 1150 ml 800 ml Balance 70 ml -560 ml Free Water 300 ml 100 ml IV Total 500 ml Tube Feeding 420 ml 140 ml Output Urine Total 1150 ml 800 ml # Bowel Movements 9 2 Objective WDWN NAD contracted on vent reduced breath sounds bilaterally with scattered rhonchi same [id number] without MRG NABS nontender no HSM no CC minimal nonfocal nonverbal trach and gt reviewed and edited Laboratory Tests 02/17/19 04:30: White Blood Count 12.6H, Red Blood Count 3.56L, Hemoglobin 9.8L, Hematocrit 29.2L, Mean Corpuscular Volume 82, Mean Corpuscular Hemoglobin 27.5, Mean Corpuscular Hemoglobin Concent 33.5, Red Cell Distribution Width 14.1, Platelet Count 270, Mean Platelet Volume 4.8L, Neutrophils (%) (Auto) 68.3, Lymphocytes ( %) (Auto) 24.2, Monocytes (%) (Auto) 3.4, Eosinophils (%) (Auto) 3.5H, Basophils (%) (Auto) 0.7, Sodium Level 140, Potassium Level 3.9, Chloride Level 103, Carbon Dioxide Level 32, Anion Gap 5, Blood Urea Nitrogen 16, Creatinine 1.1, Estimat Glomerular Filtration Rate , Glucose Level 88, Calcium Level 8.7, Phosphorus Level 3.9, Magnesium Level 3.1H, Total Bilirubin 0.2, Aspartate Amino Transf (AST/SGOT) 20, Alanine Aminotransferase (ALT/SGPT) 23, Alkaline Phosphatase 214H, Pro-B-Type Natriuretic Peptide 810H, Total Protein 8.1, Albumin 2.3L, Globulin 5.8, Albumin/Globulin Ratio 0.4L, Hepatitis A IgM Antibody [Pending], Hepatitis B Surface Antigen [Pending], Hepatitis B Core IgM Antibody [Pending], Hepatitis C Antibody [Pending] Current Medications Medications (Trade) Dose Ordered Sig/Maicol Route PRN Reason Start Time Stop Time Status Last Admin Dose Admin Acetaminophen (Tylenol) 650 mg Q4H PRN GT Mild Pain/Temp > 100.5 02/03/19 19:30 03/05/19 19:29 02/07/19 00:13 Acetylcysteine (Mucomyst) 100 mg Q4HRT HHN 02/01/19 15:00 03/03/19 12:59 02/17/19 07:28 Albuterol/ Ipratropium (Albuterol/ Ipratropium) 3 ml Q4H PRN HHN Shortness of Breath 02/12/19 20:30 02/17/19 20:29 02/17/19 07:28 Ascorbic Acid (Vitamin C) 250 mg DAILY GT 02/09/19 09:00 02/24/19 08:59 02/16/19 08:51 Atropine Sulfate (Atropine Opth Adriana) 1 drop TID SL 02/10/19 09:30 03/12/19 09:29 02/16/19 17:00 Barium Sulfate (Readi-Cat 2) 450 ml NOW PRN ORAL Radiology Procedure 02/16/19 20:45 02/18/19 20:36 Bisacodyl (Dulcolax) 10 mg PRN PRN RECTAL Constipation 01/24/19 05:30 02/23/19 05:29 Chlorhexidine Gluconate (Cesilia-Hex 2%) 1 applic DAILY@2000 TOPIC 02/10/19 20:00 03/12/19 19:59 02/16/19 20:35 Heparin Sodium (Porcine) (Heparin 5000 units/ml) 5,000 units EVERY 12 HOURS SUBQ 02/14/19 23:15 03/16/19 23:14 02/16/19 20:37 Hydralazine HCl (Apresoline) 25 mg Q4H PRN GT SBP above 160 02/08/19 15:15 03/09/19 16:29 Levetiracetam (Keppra) 750 mg Q12HR GT 02/14/19 23:30 03/16/19 23:29 02/16/19 20:36 Metoclopramide HCl (Reglan) 10 mg Q6H PRN IVP Nausea & Vomiting 02/07/19 09:00 03/09/19 08:59 Metoprolol Tartrate (Lopressor) 25 mg Q12HR GT 02/14/19 23:30 03/16/19 23:29 02/16/19 20:35 Ondansetron HCl (Zofran) 4 mg Q6H PRN GT Nausea & Vomiting 01/24/19 05:30 02/23/19 05:29 02/06/19 10:30 Pantoprazole (Protonix) 40 mg Q12HR IVP 02/14/19 23:30 03/16/19 23:29 02/16/19 20:35 Amaury Chan MD Feb 17, 2019 08:24
[2019-02-17] MEDS: levETIRAcetam 500mg/5ml Liquid GT SCH ×2 (08:30→21:09)
[2019-02-17] MEDS: Ascorbic Acid 500mg tab GT SCH (08:32)
[2019-02-17] MEDS: Heparin 5000 units/ml inj SUBQ SCH ×2 (08:32→21:12)
[2019-02-17] MEDS: Pantoprazole Inj IVP SCH ×2 (08:32→21:10)
--- NOTE | 2019-02-17 10:00 | General Progress Note ---
Assessment/Plan Problem List: (1) Seizure ICD Codes: R56.9 - Unspecified convulsions SNOMED: 02685957 (2) Anemia ICD Codes: D64.9 - Anemia, unspecified SNOMED: 537447458 Qualifiers: Qualified Codes: D64.9 - Anemia, unspecified (3) Sepsis ICD Codes: A41.9 - Sepsis, unspecified organism SNOMED: 69933478, 825537664 Qualifiers: Qualified Codes: A41.9 - Sepsis, unspecified organism (4) Respiratory failure with hypoxia ICD Codes: J96.91 - Respiratory failure, unspecified with hypoxia SNOMED: 25636298685737812 Qualifiers: Qualified Codes: J96.21 - Acute and chronic respiratory failure with hypoxia (5) HCAP (healthcare-associated pneumonia) ICD Codes: J18.9 - Pneumonia, unspecified organism SNOMED: 068853777, 662443912 (6) Sacral decubitus ulcer ICD Codes: L89.159 - Pressure ulcer of sacral region, unspecified stage SNOMED: 825605382 (7) HTN (hypertension) ICD Codes: I10 - Essential (primary) hypertension SNOMED: 12517945 (8) Chronic vegetative state ICD Codes: R40.3 - Persistent vegetative state SNOMED: 87663136 (9) Chronic respiratory failure ICD Codes: J96.10 - Chronic respiratory failure, unspecified whether with hypoxia or hypercapnia SNOMED: 40756581 (10) Limited mobility ICD Codes: Z74.09 - Other reduced mobility SNOMED: 6871246 Status: stable, progressing Assessment/Plan: vent prn as needed resp rx suctioning as needed gt feeds monitor for vomiting bowel regime monitor residuals cont keppra for szs repeat sputum culture transfuse prn dc planning Subjective ROS Limited/Unobtainable: No Constitutional: Reports: malaise, weakness HEENT: Reports: no symptoms Cardiovascular: Reports: no symptoms Respiratory: Reports: no symptoms Gastrointestinal/Abdominal: Reports: difficulty swallowing Genitourinary: Reports: no symptoms Neurologic/Psychiatric: Reports: pre-existing deficit, seizure Endocrine: Reports: no symptoms Hematologic/Lymphatic: Reports: anemia Allergies: Coded Allergies: CODEINE (Verified Allergy, Unknown, HIVES, 09/15/09) All Systems: reviewed and negative except above Subjective no events. off the vent on tbar. no bleeding. tolerating feeds. no report of szs. Objective Last 24 Hour Vital Signs Date Time Temp Pulse Resp B/P (MAP) Pulse Ox O2 Delivery O2 Flow Rate FiO2 02/17/19 08:32 76 125/65 02/17/19 08:00 T-piece 8.0 02/17/19 07:28 96 T-Piece 8.0 30 02/17/19 07:28 77 18 99 T-Piece 8.0 30 75 18 96 02/17/19 04:00 8.0 30 02/17/19 04:00 T-piece 8.0 02/17/19 04:00 97.9 76 18 123/64 (83) 96 02/17/19 03:48 75 02/17/19 03:13 74 18 100 T-Piece 8.0 30 73 18 97 02/17/19 01:17 99 T-Piece 8.0 30 02/17/19 00:00 98.0 75 20 124/52 (76) 100 02/17/19 00:00 T-piece 8.0 02/16/19 23:32 89 18 100 T-Piece 8.0 30 86 18 98 02/16/19 23:24 69 02/16/19 20:35 81 138/55 02/16/19 20:00 8.0 30 02/16/19 20:00 98.4 81 20 138/55 (82) 98 02/16/19 20:00 T-piece 8.0 02/16/19 20:00 77 02/16/19 19:16 91 18 100 T-Piece 8.0 30 88 18 97 02/16/19 19:16 98 T-Piece 8.0 30 02/16/19 16:00 76 02/16/19 16:00 97.7 93 20 145/74 (97) 100 02/16/19 16:00 8.0 30 02/16/19 16:00 T-piece 8.0 02/16/19 15:16 82 18 100 T-Piece 8.0 30 78 18 100 02/16/19 13:22 99 T-Piece 8.0 30 02/16/19 12:00 98.1 79 20 141/62 (88) 99 02/16/19 12:00 8.0 30 02/16/19 12:00 77 02/16/19 12:00 T-piece 8.0 02/16/19 10:51 83 18 100 T-Piece 8.0 30 81 18 100 Intake and Output 02/16/19 02/17/19 19:00 07:00 Intake Total 1220 ml 240 ml Output Total 1150 ml 800 ml Balance 70 ml -560 ml Free Water 300 ml 100 ml IV Total 500 ml Tube Feeding 420 ml 140 ml Output Urine Total 1150 ml 800 ml # Bowel Movements 9 2 Laboratory Tests 02/17/19 04:30: White Blood Count 12.6H, Red Blood Count 3.56L, Hemoglobin 9.8L, Hematocrit 29.2L, Mean Corpuscular Volume 82, Mean Corpuscular Hemoglobin 27.5, Mean Corpuscular Hemoglobin Concent 33.5, Red Cell Distribution Width 14.1, Platelet Count 270, Mean Platelet Volume 4.8L, Neutrophils (%) (Auto) 68.3, Lymphocytes ( %) (Auto) 24.2, Monocytes (%) (Auto) 3.4, Eosinophils (%) (Auto) 3.5H, Basophils (%) (Auto) 0.7, Sodium Level 140, Potassium Level 3.9, Chloride Level 103, Carbon Dioxide Level 32, Anion Gap 5, Blood Urea Nitrogen 16, Creatinine 1.1, Estimat Glomerular Filtration Rate , Glucose Level 88, Calcium Level 8.7, Phosphorus Level 3.9, Magnesium Level 3.1H, Total Bilirubin 0.2, Aspartate Amino Transf (AST/SGOT) 20, Alanine Aminotransferase (ALT/SGPT) 23, Alkaline Phosphatase 214H, Pro-B-Type Natriuretic Peptide 810H, Total Protein 8.1, Albumin 2.3L, Globulin 5.8, Albumin/Globulin Ratio 0.4L, Hepatitis A IgM Antibody [Pending], Hepatitis B Surface Antigen [Pending], Hepatitis B Core IgM Antibody [Pending], Hepatitis C Antibody [Pending] Height (Feet): 5 Height (Inches): 5.00 Weight (Pounds): 180 Objective General Appearance: WD/WN, confused Neck: supple Cardiovascular: normal rate, regular rhythm Respiratory/Chest: chest wall non-tender, rhonchi - bilaterally Abdomen: normal bowel sounds, non tender, soft, no organomegaly Edema: no edema noted Arm (L), no edema noted Arm (R), no edema noted Leg (L), no edema noted Leg (R), no edema noted Pedal (L), no edema noted Pedal (R), no edema noted Generalized Neurologic: disoriented, unresponsive, aphasia Irvin Beltrán MD Feb 17, 2019 10:00
--- NOTE | 2019-02-17 10:19 | Infectious Diseases Prog Note ---
Assessment/Plan Assessment/Plan antibiotics : none A 1. UTI with proteus s/p rx 2. respiratory failure 3. hypertension 4. CVA 5. dementia 6. sacral decubitus ulcer 7. rectal VRE colonization 8. leucocytosis improving 9. renal failure P 1. observe off antibiotics Subjective ROS Limited/Unobtainable: Yes Allergies: Coded Allergies: CODEINE (Verified Allergy, Unknown, HIVES, 09/15/09) Objective Vital Signs Last 24 Hour Vital Signs Date Time Temp Pulse Resp B/P (MAP) Pulse Ox O2 Delivery O2 Flow Rate FiO2 02/17/19 08:32 76 125/65 02/17/19 08:00 8.0 30 02/17/19 08:00 97.5 78 20 125/61 (82) 97 02/17/19 08:00 T-piece 8.0 02/17/19 07:28 96 T-Piece 8.0 30 02/17/19 07:28 77 18 99 T-Piece 8.0 30 75 18 96 02/17/19 04:00 8.0 30 02/17/19 04:00 T-piece 8.0 02/17/19 04:00 97.9 76 18 123/64 (83) 96 02/17/19 03:48 75 02/17/19 03:13 74 18 100 T-Piece 8.0 30 73 18 97 02/17/19 01:17 99 T-Piece 8.0 30 02/17/19 00:00 98.0 75 20 124/52 (76) 100 02/17/19 00:00 T-piece 8.0 02/16/19 23:32 89 18 100 T-Piece 8.0 30 86 18 98 02/16/19 23:24 69 02/16/19 20:35 81 138/55 02/16/19 20:00 8.0 30 02/16/19 20:00 98.4 81 20 138/55 (82) 98 02/16/19 20:00 T-piece 8.0 02/16/19 20:00 77 02/16/19 19:16 91 18 100 T-Piece 8.0 30 88 18 97 02/16/19 19:16 98 T-Piece 8.0 30 02/16/19 16:00 76 02/16/19 16:00 97.7 93 20 145/74 (97) 100 02/16/19 16:00 8.0 30 02/16/19 16:00 T-piece 8.0 02/16/19 15:16 82 18 100 T-Piece 8.0 30 78 18 100 02/16/19 13:22 99 T-Piece 8.0 30 02/16/19 12:00 98.1 79 20 141/62 (88) 99 02/16/19 12:00 8.0 30 02/16/19 12:00 77 02/16/19 12:00 T-piece 8.0 02/16/19 10:51 83 18 100 T-Piece 8.0 30 81 18 100 Height (Feet): 5 Height (Inches): 5.00 Weight (Pounds): 180 HEENT: status post trach Respiratory/Chest: lungs clear Cardiovascular: normal rate, regular rhythm, no gallop/murmur Abdomen: soft, non tender, other - GT Extremities: no edema Microbiology Date/Time Source Procedure Growth Status 02/16/19 13:35 Stool Clostridium difficile Toxin Assay - Final Complete Laboratory Tests Test 02/17/19 04:30 White Blood Count 12.6 K/UL (4.8-10.8) H Red Blood Count 3.56 M/UL (4.20-5.40) L Hemoglobin 9.8 G/DL (12.0-16.0) L Hematocrit 29.2 % (37.0-47.0) L Mean Corpuscular Volume 82 FL (80-99) Mean Corpuscular Hemoglobin 27.5 PG (27.0-31.0) Mean Corpuscular Hemoglobin Concent 33.5 G/DL (32.0-36.0) Red Cell Distribution Width 14.1 % (11.6-14.8) Platelet Count 270 K/UL (150-450) Mean Platelet Volume 4.8 FL (6.5-10.1) L Neutrophils (%) (Auto) 68.3 % (45.0-75.0) Lymphocytes (%) (Auto) 24.2 % (20.0-45.0) Monocytes (%) (Auto) 3.4 % (1.0-10.0) Eosinophils (%) (Auto) 3.5 % (0.0-3.0) H Basophils (%) (Auto) 0.7 % (0.0-2.0) Sodium Level 140 MMOL/L (136-145) Potassium Level 3.9 MMOL/L (3.5-5.1) Chloride Level 103 MMOL/L (98-107) Carbon Dioxide Level 32 MMOL/L (21-32) Anion Gap 5 mmol/L (5-15) Blood Urea Nitrogen 16 mg/dL (7-18) Creatinine 1.1 MG/DL (0.55-1.30) Estimat Glomerular Filtration Rate mL/min (>60) Glucose Level 88 MG/DL (74-106) Calcium Level 8.7 MG/DL (8.5-10.1) Phosphorus Level 3.9 MG/DL (2.5-4.9) Magnesium Level 3.1 MG/DL (1.8-2.4) H Total Bilirubin 0.2 MG/DL (0.2-1.0) Aspartate Amino Transf (AST/SGOT) 20 U/L (15-37) Alanine Aminotransferase (ALT/SGPT) 23 U/L (12-78) Alkaline Phosphatase 214 U/L (46-116) H Pro-B-Type Natriuretic Peptide 810 pg/mL (0-125) H Total Protein 8.1 G/DL (6.4-8.2) Albumin 2.3 G/DL (3.4-5.0) L Globulin 5.8 g/dL Albumin/Globulin Ratio 0.4 (1.0-2.7) L Hepatitis A IgM Antibody Pending Hepatitis B Surface Antigen Pending Hepatitis B Core IgM Antibody Pending Hepatitis C Antibody Pending Current Medications Medications (Trade) Dose Ordered Sig/Maicol Route PRN Reason Start Time Stop Time Status Last Admin Dose Admin Acetaminophen (Tylenol) 650 mg Q4H PRN GT Mild Pain/Temp > 100.5 02/03/19 19:30 03/05/19 19:29 02/07/19 00:13 Acetylcysteine (Mucomyst) 100 mg Q4HRT HHN 02/01/19 15:00 03/03/19 12:59 02/17/19 07:28 Albuterol/ Ipratropium (Albuterol/ Ipratropium) 3 ml Q4H PRN HHN Shortness of Breath 02/12/19 20:30 02/17/19 20:29 02/17/19 07:28 Ascorbic Acid (Vitamin C) 250 mg DAILY GT 02/09/19 09:00 02/24/19 08:59 02/17/19 08:32 Atropine Sulfate (Atropine Opth Adriana) 1 drop TID SL 02/10/19 09:30 03/12/19 09:29 02/17/19 08:32 Barium Sulfate (Readi-Cat 2) 450 ml NOW PRN ORAL Radiology Procedure 02/16/19 20:45 02/18/19 20:36 Bisacodyl (Dulcolax) 10 mg PRN PRN RECTAL Constipation 01/24/19 05:30 02/23/19 05:29 Chlorhexidine Gluconate (Cesilia-Hex 2%) 1 applic DAILY@1999 TOPIC 02/10/19 20:00 03/12/19 19:59 02/16/19 20:35 Heparin Sodium (Porcine) (Heparin 5000 units/ml) 5,000 units EVERY 12 HOURS SUBQ 02/14/19 23:15 03/16/19 23:14 02/17/19 08:32 Hydralazine HCl (Apresoline) 25 mg Q4H PRN GT SBP above 160 02/08/19 15:15 03/09/19 16:29 Levetiracetam (Keppra) 750 mg Q12HR GT 02/14/19 23:30 03/16/19 23:29 02/17/19 08:30 Metoclopramide HCl (Reglan) 10 mg Q6H PRN IVP Nausea & Vomiting 02/07/19 09:00 03/09/19 08:59 Metoprolol Tartrate (Lopressor) 25 mg Q12HR GT 02/14/19 23:30 03/16/19 23:29 02/17/19 08:32 Ondansetron HCl (Zofran) 4 mg Q6H PRN GT Nausea & Vomiting 01/24/19 05:30 02/23/19 05:29 02/06/19 10:30 Pantoprazole (Protonix) 40 mg Q12HR IVP 02/14/19 23:30 03/16/19 23:29 02/17/19 08:32 Geovany Yang MD Feb 17, 2019 10:19
--- NOTE | 2019-02-17 10:24 | Surgery Progress Note ---
Surgery Progress Note Subjective Additional Comments wbc 12k h/h stable exam unchanged comfortable pending placement Objective Last 24 Hour Vital Signs Date Time Temp Pulse Resp B/P (MAP) Pulse Ox O2 Delivery O2 Flow Rate FiO2 02/17/19 08:32 76 125/65 02/17/19 08:00 8.0 30 02/17/19 08:00 97.5 78 20 125/61 (82) 97 02/17/19 08:00 T-piece 8.0 02/17/19 07:28 96 T-Piece 8.0 30 02/17/19 07:28 77 18 99 T-Piece 8.0 30 75 18 96 02/17/19 04:00 8.0 30 02/17/19 04:00 T-piece 8.0 02/17/19 04:00 97.9 76 18 123/64 (83) 96 02/17/19 03:48 75 02/17/19 03:13 74 18 100 T-Piece 8.0 30 73 18 97 02/17/19 01:17 99 T-Piece 8.0 30 02/17/19 00:00 98.0 75 20 124/52 (76) 100 02/17/19 00:00 T-piece 8.0 02/16/19 23:32 89 18 100 T-Piece 8.0 30 86 18 98 02/16/19 23:24 69 02/16/19 20:35 81 138/55 02/16/19 20:00 8.0 30 02/16/19 20:00 98.4 81 20 138/55 (82) 98 02/16/19 20:00 T-piece 8.0 02/16/19 20:00 77 02/16/19 19:16 91 18 100 T-Piece 8.0 30 88 18 97 02/16/19 19:16 98 T-Piece 8.0 30 02/16/19 16:00 76 02/16/19 16:00 97.7 93 20 145/74 (97) 100 02/16/19 16:00 8.0 30 02/16/19 16:00 T-piece 8.0 02/16/19 15:16 82 18 100 T-Piece 8.0 30 78 18 100 02/16/19 13:22 99 T-Piece 8.0 30 02/16/19 12:00 98.1 79 20 141/62 (88) 99 02/16/19 12:00 8.0 30 02/16/19 12:00 77 02/16/19 12:00 T-piece 8.0 02/16/19 10:51 83 18 100 T-Piece 8.0 30 81 18 100 I&O Intake and Output 02/16/19 02/17/19 19:00 07:00 Intake Total 1220 ml 240 ml Output Total 1150 ml 800 ml Balance 70 ml -560 ml Free Water 300 ml 100 ml IV Total 500 ml Tube Feeding 420 ml 140 ml Output Urine Total 1150 ml 800 ml # Bowel Movements 9 2 Dressing: other Wound: other Drains: other Cardiovascular: RSR Respiratory: decreased breath sounds Abdomen: soft, present bowel sounds, non-distended Extremities: no cyanosis, other Laboratory Tests Test 02/17/19 04:30 White Blood Count 12.6 K/UL (4.8-10.8) H Red Blood Count 3.56 M/UL (4.20-5.40) L Hemoglobin 9.8 G/DL (12.0-16.0) L Hematocrit 29.2 % (37.0-47.0) L Mean Corpuscular Volume 82 FL (80-99) Mean Corpuscular Hemoglobin 27.5 PG (27.0-31.0) Mean Corpuscular Hemoglobin Concent 33.5 G/DL (32.0-36.0) Red Cell Distribution Width 14.1 % (11.6-14.8) Platelet Count 270 K/UL (150-450) Mean Platelet Volume 4.8 FL (6.5-10.1) L Neutrophils (%) (Auto) 68.3 % (45.0-75.0) Lymphocytes (%) (Auto) 24.2 % (20.0-45.0) Monocytes (%) (Auto) 3.4 % (1.0-10.0) Eosinophils (%) (Auto) 3.5 % (0.0-3.0) H Basophils (%) (Auto) 0.7 % (0.0-2.0) Sodium Level 140 MMOL/L (136-145) Potassium Level 3.9 MMOL/L (3.5-5.1) Chloride Level 103 MMOL/L (98-107) Carbon Dioxide Level 32 MMOL/L (21-32) Anion Gap 5 mmol/L (5-15) Blood Urea Nitrogen 16 mg/dL (7-18) Creatinine 1.1 MG/DL (0.55-1.30) Estimat Glomerular Filtration Rate mL/min (>60) Glucose Level 88 MG/DL (74-106) Calcium Level 8.7 MG/DL (8.5-10.1) Phosphorus Level 3.9 MG/DL (2.5-4.9) Magnesium Level 3.1 MG/DL (1.8-2.4) H Total Bilirubin 0.2 MG/DL (0.2-1.0) Aspartate Amino Transf (AST/SGOT) 20 U/L (15-37) Alanine Aminotransferase (ALT/SGPT) 23 U/L (12-78) Alkaline Phosphatase 214 U/L (46-116) H Pro-B-Type Natriuretic Peptide 810 pg/mL (0-125) H Total Protein 8.1 G/DL (6.4-8.2) Albumin 2.3 G/DL (3.4-5.0) L Globulin 5.8 g/dL Albumin/Globulin Ratio 0.4 (1.0-2.7) L Hepatitis A IgM Antibody Pending Hepatitis B Surface Antigen Pending Hepatitis B Core IgM Antibody Pending Hepatitis C Antibody Pending Plan Problems: (1) Sacral decubitus ulcer Assessment & Plan: This is a 83-year-old female with multiple medical committees that is currently admitted for medical care and management and identified to have multiple wounds requiring care. On admission patient noted to have a resolved sacral decubitus ulcer. Has had prior care and is well-healed at this time. Will ensure it does not open up again. Patient has a right ischial decubitus ulcer that is resolved. Scar intact and well formed. Will monitor to ensure it does not open up again. Patient has a left ischial decubitus ulcer that can be identified to be stage IV with palpable bone that has been resolving as noted by the periwound tissue and scar but open area approximately 1 cm x 1.5 cm few millimeters deep to bone identified. Unsure if this is been to be completely healed prior and has since opened or if has been healing at this level. No foul odor no drainage was unsure local wound care until healed Bilateral heels soft without signs of injury Resolving pressure injury L ischium(L)1.8cm x (W)1cm.Scattered biofilm at base of wound. Edges flat and adherent with surrounding hyperpigmentation. No odor or exudate noted. Sacrum is pale pink with surrounding hyperpigmentation. Hyperpigmentation R ischium with small sheared area centrally.No areas of erythema or exudate noted. Both heels are soft but blanchable. Skin Assessed under collar of trach and no evidence of skin breakdown noted. All wound Tx. are effective and continued as ordered. Pt ahs an APM/Belén mattress overlay and is being repositioned per protocols and per tolerance.No new skin concerns noted. Treatment plan: Please apply skin protectant and optifoam to sacral area. Change every 3 days Please apply skin protectant and optifoam to right ischial area. Change every 3 days Please apply Thera honey infused gauze to small opening in the left ischial wound bed followed by skin protectant in the periwound and up to foam. Change daily as needed saturation Apply Xeroform and dressing over left hand blister. Offload pressure from heels with pillow Air soft mattress Turn every 2 hours Nutritional optimization We will monitor follow with recommendations (2) Sepsis Assessment & Plan: IV abx as per ID trend labs improving wounds unlikely etiology likely respiratory imaging noted and okay abnormal lft's stable PICC on Abx improved d/c (3) Feeding by G-tube Assessment & Plan: DAILY ESTIMATED NEEDS: Needs based on Pulmonary, wounds, bedbound/ 60kg adj 25-28 kcals/kg 2547-0817 total kcals 1.25-2 g protein/kg 75-120 g total protein 25-30 mL/kg 9342-3689 total fluid mLs NUTRITION DIAGNOSIS: * Swallowing difficulty R/T respiratory status as evidenced by pt on T-collar, now back the vent, PEG dep, TF changed to low rate at this time due to episodes of vomiting + residuals. * Increased kcal/prot needs R/T wound healing as evidenced by BL buttocks and sacral wound photos, refer to eval. (CURRENT TF:Glucerna 1.5 @35ml) ENTERAL NUTRITION RECOMMENDATIONS: VITAL AF 1.2 @ 55ml/hr x 24 hrs to provide 1320ml, 1584kcal, 99g prot, 1060ml free water - Once medically appropriate to resume TF, rec to initiate elemental and carb control formula of Vital 1.2 for possible improved tolerance - Initiate VITAL 1.2 @ 25ml/hr x 6hrs, advance 10ml q 4-6 hrs as tolerated to goal rate - Flush per MD/ HOB over 30 degrees ADDITIONAL RECOMMENDATIONS: 1) Re-calibrated bedscale wt for accurate CBW 2) Wound healing: Add Cristian 1pkt BID w/ improved Tf tolerace + MVI x1 daily 3) Monitor lytes, replete as needed (low Mg, K) 4) Monitor NPO status, ability to resume TF. -> held on and off due to vomiting since 02/02 5) SSI prn resume tube feeds (4) Chronic vegetative state Assessment & Plan: incontinence of urine and stool. can soil dressings. nurses doing great job with monitoring and changing prn (5) Leukocytosis Walter [place]era Feb 17, 2019 10:23
--- NOTE | 2019-02-17 11:20 | Nephrology Progress Note ---
Assessment/Plan Problem List: (1) Acute renal failure (ARF) Assessment: Cr stable (2) Chronic respiratory failure (3) Anemia (4) Sepsis Assessment Acute renal failure Respiratory failure - Trach Low Mag- Low k , Low Na Anemia UTI / Sepsis Proteinuria / HypoAlbuminemia high Trigs Sz decubs bed bound DNR Plan K and Mag and Phos supplement as needed Hydrate Urine studies avoid Nephrotoxics mag K Phos supplements as needed monitor renal parameters Subjective ROS Limited/Unobtainable: Yes Objective Objective Last 24 Hour Vital Signs Date Time Temp Pulse Resp B/P (MAP) Pulse Ox O2 Delivery O2 Flow Rate FiO2 02/17/19 08:32 76 125/65 02/17/19 08:00 8.0 30 02/17/19 08:00 97.5 78 20 125/61 (82) 97 02/17/19 08:00 72 02/17/19 08:00 T-piece 8.0 02/17/19 07:28 96 T-Piece 8.0 30 02/17/19 07:28 77 18 99 T-Piece 8.0 30 75 18 96 02/17/19 04:00 8.0 30 02/17/19 04:00 T-piece 8.0 02/17/19 04:00 97.9 76 18 123/64 (83) 96 02/17/19 03:48 75 02/17/19 03:13 74 18 100 T-Piece 8.0 30 73 18 97 02/17/19 01:17 99 T-Piece 8.0 30 02/17/19 00:00 98.0 75 20 124/52 (76) 100 02/17/19 00:00 T-piece 8.0 02/16/19 23:32 89 18 100 T-Piece 8.0 30 86 18 98 02/16/19 23:24 69 02/16/19 20:35 81 138/55 02/16/19 20:00 8.0 30 02/16/19 20:00 98.4 81 20 138/55 (82) 98 02/16/19 20:00 T-piece 8.0 02/16/19 20:00 77 02/16/19 19:16 91 18 100 T-Piece 8.0 30 88 18 97 02/16/19 19:16 98 T-Piece 8.0 30 11/18/19 16:00 76 02/16/19 16:00 97.7 93 20 145/74 (97) 100 02/16/19 16:00 8.0 30 02/16/19 16:00 T-piece 8.0 02/16/19 15:16 82 18 100 T-Piece 8.0 30 78 18 100 02/16/19 13:22 99 T-Piece 8.0 30 02/16/19 12:00 98.1 79 20 141/62 (88) 99 02/16/19 12:00 8.0 30 02/16/19 12:00 77 02/16/19 12:00 T-piece 8.0 Intake and Output 02/16/19 02/17/19 19:00 07:00 Intake Total 1220 ml 240 ml Output Total 1150 ml 800 ml Balance 70 ml -560 ml Free Water 300 ml 100 ml IV Total 500 ml Tube Feeding 420 ml 140 ml Output Urine Total 1150 ml 800 ml # Bowel Movements 9 2 Laboratory Tests 02/17/19 04:30: White Blood Count 12.6H, Red Blood Count 3.56L, Hemoglobin 9.8L, Hematocrit 29.2L, Mean Corpuscular Volume 82, Mean Corpuscular Hemoglobin 27.5, Mean Corpuscular Hemoglobin Concent 33.5, Red Cell Distribution Width 14.1, Platelet Count 270, Mean Platelet Volume 4.8L, Neutrophils (%) (Auto) 68.3, Lymphocytes ( %) (Auto) 24.2, Monocytes (%) (Auto) 3.4, Eosinophils (%) (Auto) 3.5H, Basophils (%) (Auto) 0.7, Sodium Level 140, Potassium Level 3.9, Chloride Level 103, Carbon Dioxide Level 32, Anion Gap 5, Blood Urea Nitrogen 16, Creatinine 1.1, Estimat Glomerular Filtration Rate , Glucose Level 88, Calcium Level 8.7, Phosphorus Level 3.9, Magnesium Level 3.1H, Total Bilirubin 0.2, Aspartate Amino Transf (AST/SGOT) 20, Alanine Aminotransferase (ALT/SGPT) 23, Alkaline Phosphatase 214H, Pro-B-Type Natriuretic Peptide 810H, Total Protein 8.1, Albumin 2.3L, Globulin 5.8, Albumin/Globulin Ratio 0.4L, Hepatitis A IgM Antibody [Pending], Hepatitis B Surface Antigen [Pending], Hepatitis B Core IgM Antibody [Pending], Hepatitis C Antibody [Pending] Height (Feet): 5 Height (Inches): 5.00 Weight (Pounds): 180 General Appearance: no apparent distress EENT: other - trach Respiratory/Chest: decreased breath sounds Abdomen: distended Eric Cortez MD Feb 17, 2019 11:20
--- NOTE | 2019-02-17 11:42 | NUR ---
RD ASSESSMENT & RECOMMENDATIONS SEE CARE ACTIVITY FOR COMPLETE ASSESSMENT DAILY ESTIMATED NEEDS: Needs based on Pulmonary, wounds, bedbound/ 60kg adj 25-28 kcals/kg 2462-2607 total kcals 1.25-2 g protein/kg 75-120 g total protein 25-30 mL/kg 9129-6287 total fluid mLs NUTRITION DIAGNOSIS: * Swallowing difficulty R/T respiratory status as evidenced by pt on T-collar, now back the vent, PEG dep, TF changed to low rate at this time due to episodes of vomiting + residuals. * Increased kcal/prot needs R/T wound healing as evidenced by BL buttocks and sacral wound photos, refer to eval. CURRENT TF:Glucerna 1.5 @35ml ENTERAL NUTRITION RECOMMENDATIONS: Glucerna 1.5 @ 45ml/hr x 24 hrs to provide 1080ml, 1620kcal, 89g prot, 820ml free water - W/ continued good TF tolerance, rec to increase goal rate to 45ml/hr x 24 hrs to meet 100% est kcal/prot needs - HOB over 30 degrees - Water flush of 170ml q 6 hrs * W/ any further TF intolerances, rec TF change to elemental and carb controlled formula of Vital AF 1.2 for possible improved tolerance -> Rec VITAL AF 1.2 @ 55ml/hr x 24 hrs to provide 1320ml, 1584kcal, 99g prot, 1060ml free water ADDITIONAL RECOMMENDATIONS: 1) Re-calibrated bedscale wt for accurate CBW 2) Wound healing: Add Cristian 1pkt BID w/ improved TF tolerance + MVI x1 daily 3) Monitor lytes, replete as needed 4) SSI prn 5) Monitor TF tolerance: GJ conversion held at this time rec to increase TF as above w/ continued good TF tolerance
--- NOTE | 2019-02-17 14:03 | NUR ---
CASE MANAGEMENT:REVIEW 02/17/19 SI: SEPSIS. KPC PNA SACRAL DECUB. CHRONIC RESP FAILURE 97.7 73 20 140/64 99% ON T-PIECE 8L FIO2 30% WBC+12.6 H/H-9.8/29.2 IS: KEPPRA GT Q12 LOPRESSOR GT IV PROTONIX Q12 HEPARIN SQ Q12 ATROPINE SL TID MUCOMYST HHN Q4HRS RTC : STEP DOWN UNIT PLAN: PATIENT HAS BEEN REFERRED TO MINDI FLOREZ
--- NOTE | 2019-02-17 14:33 | Diagnostic Imaging Report ---
Indication: Abdominal pain, abnormal liver function, nausea and vomiting Technique: Spiral acquisitions obtained through the abdomen only. Patient ingested oral contrast. No IV contrast utilized, per referring physician request.. Multiplanar reconstructions were generated. Total dose length product 838 mGycm. CTDIvol(s) 18 mGy. Dose reduction achieved using automated exposure control Comparison: 02/06/2019 Findings: There is some image degradation due to image noise related to the patient's arms being within the [id number]. Again demonstrated is a gastrostomy, position of which appears satisfactory. There is evidence of a small hiatal hernia and evidence of trace gastroesophageal reflux. The distal esophagus is otherwise unremarkable. The duodenum is unremarkable. Contrast has traversed the entirety of the small bowel. Visualized small bowel appears normal in caliber without evidence of wall thickening. The appendix is normal. The visualized colon is unremarkable. There is mild diastasis of the rectus abdominis musculature again demonstrated. No free or loculated intraperitoneal gas or fluid is evident. Lack of IV contrast limits assessment of solid organs. The liver, gallbladder, bile ducts, pancreas, spleen, adrenals are grossly unremarkable. The interpolar region cyst described on prior sonograms is barely visible in the interpolar region of the left kidney on the current exam due to the image noise. There is some infiltration of the fat of the left flank. No renal or ureteral calculi are demonstrated. The most cephalad aspect of the previously described retrosacral decubitus changes is noted on the lowest cuts Again demonstrated is extensive consolidation in the left lower lobe. The bones are unremarkable. Findings are essentially unchanged Impression: Limited exam, as described Evidence of left lower lobe pneumonia, also previously demonstrated Gastrostomy in good position Mild diastasis of the rectus abdominis musculature again demonstrated Retrosacral decubitus changes, better depicted on prior exam which included the pelvis Small hiatal hernia with evidence of trace gastroesophageal reflux Other findings as noted, including left renal cyst The CT scanner at [facility] is accredited by the [employer] and the scans are performed using protocols designed to limit radiation exposure to as low as reasonably achievable to attain images of sufficient resolution adequate for diagnostic evaluation.
--- NOTE | 2019-02-17 19:23 | NUR ---
HAND-OFF: Report given to JEANNINE Marion.
--- NOTE | 2019-02-17 19:39 | NUR ---
NURSE NOTES: Received patient from Ronn Anderson RN. patient is observed resting in bed, obtunded, unable to make needs known. no s/sx of pain noted at this time. patient is on T-piece, FiO2: 30%, 7L/min, tolerating well, saturating at 98%, no s/sx of respiratory distress noted at this time. G-tube site is patent and intact, running Glucerna 1.5 at 35 cc/hr. HOB elevated, no residual noted. Purewick connected to suction, draining yellow urine. skin alterations noted. JOSY PICC noted, dressing dry and intact, fluids running TKO. bed in lowest position and locked, padded siderails up X3, call light within reach. will continue to monitor.
--- NOTE | 2019-02-17 19:45 | NUR ---
NURSE NOTES: vital signs taken. BP: 130/72, HR: 75, RR: 18, saturation: 98%, Temp: 97.9. NSR on hall monitor. no s/sx of acute cardiac distress noted. oral care given. pt tolerated well. suctioned patient via T-piece and orally. large amounts of thick secretions noted. pt tolerated suctioning well, sat: 98%. no acute respiratory distress noted at this time. will continue to monitor.
--- NOTE | 2019-02-17 20:20 | NUR ---
NURSE NOTES: repositioned patient to left side; bilateral heels floating. wound dressings dry and intact. suctioned patient via T-piece and orally. moderate amounts of thick secretions noted through trach and oral cavity. pt tolerated suctioning well, sat: 97%. no acute respiratory distress noted at this time. will continue to monitor.
[2019-02-17] MEDS: Dyna-Hex 2% Top Sol 2oz TOPIC SCH (21:09)
--- NOTE | 2019-02-17 21:15 | NUR ---
NURSE NOTES: all due meds given. no residual noted via G-tube. G-tube dressing remains dry and intact. HOB elevated to 45 degrees. suctioned patient via trach and orally. moderate amount of secretions noted via trach. pt tolerated well, sat: 99%, no s/sx of respiratory distress noted at this time. will continue to monitor.
--- NOTE | 2019-02-17 21:55 | NUR ---
NURSE NOTES: Son in -law called to check patient,patient coughing with copious foamy secretions in the mouth with head of bed at 45 degrees.Suctioned patient thoroughly thru her mouth and tracheostomy spo2 87% on the bedside monitor heart rate 95/min.RT was called and did suctioning thru trach and orally spo2 still 87%.Activated FIELD HEALTH OFFICER.Family at bedside.
--- NOTE | 2019-02-17 21:57 | NUR ---
RAPID RESPONSE: See Rapid Response sheet which remains on paper.
--- NOTE | 2019-02-17 22:01 | Progress Note ---
DATE: 02/17/2019 CARDIOLOGY PROGRESS NOTE SUBJECTIVE: The patient remains on T-tube via trach. Monitor sinus. OBJECTIVE: VITAL SIGNS: Blood pressure 123/64, heart rate 76, respirations 18. LUNGS: Bilateral breath sounds. Thin secretions. CARDIAC: Regular rhythm, rate. Normal S1, S2. ABDOMEN: Soft. G-tube intact. EXTREMITIES: Trace edema. LABORATORY DATA: White count 12.6, hemoglobin 9.8. Sodium 140, potassium 3.9, bicarb 32, BUN 16, creatinine 1.1. Pro-natriuretic peptide down to 810. IMPRESSION: Improved. PLAN: 1. Additional diuresis. 2. Respiratory hygiene. 3. Antimicrobials per Infectious Disease custom decorating consultant. 4. Nutrition by feeding tube. 5. Continue beta-martha without change. Bg Hagen M.D. DR: ALEXANDER JOB#: [id number] CC:
[2019-02-17] MEDS ORDERED: Albuterol ud Inhalation ONE (22:03)
--- NOTE | 2019-02-17 22:03 | NUR ---
NURSE NOTES: left message for Dr. Beltrán informing him that RECREATION FACILITY MANAGER was activated d/t pt in respiratory distress. pt desatting to 87% on T-piece, 30% FiO2. RT increased FiO2 to 50% and placed patient on vent.
--- NOTE | 2019-02-17 22:09 | NUR ---
NURSE NOTES: Dr. Beltrán called back with orders. will carry out.
--- NOTE | 2019-02-17 22:10 | NUR ---
NURSE NOTES: Stat ABG ordered. O2 sat: 95% at this time.
--- NOTE | 2019-02-17 22:20 | NUR ---
NURSE NOTES: Received from Caleb s/p PAINTER SET 83 y.o female with Dx Sepsis PNA , pt fond in Caleb drooling some whitish tk secretions lg in amt. o2 sat was 87%, income tax investigator was called,resuscitate th pt and brought to ICU,, connected to C monitor which showed NSR bp118/60, 02 sat >95% afebrile. pt on vent right now with vent setting Fi02 30% PSV 14 fi02 30% tv450. Dr Beltrán called -with orders given. Pls see orders.
--- NOTE | 2019-02-17 22:28 | NUR ---
NURSE NOTES: informed Dr. Beltrán of patient's ABG results. see results in chart. BP: 128/96, HR: 89, NSR noted on campus monitor. transfer to ICU on vent per Dr. Beltrán.
[2019-02-17] MEDS ORDERED: D5NS 1,000 ML IV SCH (22:45)
--- NOTE | 2019-02-17 22:58 | NUR ---
NURSE NOTES: Called and left message for MD Beltrán at this time. Message left with GEAR CUTTING MACHINE OPERATOR results. Patient also noted to be coughing up copious amount of secretions. awaiting call back
--- NOTE | 2019-02-17 23:00 | NUR ---
NURSe notes. Fi02 were readjusted by RT now down to 30%. Pt been frequently suctioned with whitish to beige secretions moderate in amt. Daughter at bedside -updated with pts condition= verbalized understanding,
--- NOTE | 2019-02-17 23:04 | General Progress Note ---
Assessment/Plan Status: stable, progressing Assessment/Plan: Assessment - N/V - suspect due to gastroparesis - better today - will hold off on G to J conversion per daughter request - Elevated Alk phos / LFT - CT negative - abd U/S negative - check hepatitis serologies - Anemia with OB (-) stools - Resp failure, s/p Trach - dysphagia, s/p PEG - OBS - poor Px Recommendations - laxative PRN - continue TF - aspiration precautions - elevate HOB - PPI - Elevate HOB Subjective Allergies: Coded Allergies: CODEINE (Verified Allergy, Unknown, HIVES, 09/15/09) Subjective Seen earlier today TF held for CT scan Objective Last 24 Hour Vital Signs Date Time Temp Pulse Resp B/P (MAP) Pulse Ox O2 Delivery O2 Flow Rate FiO2 02/17/19 21:10 76 130/72 02/17/19 20:58 99 T-Piece 8.0 30 02/17/19 20:00 8.0 30 02/17/19 20:00 97.9 75 18 130/72 (91) 98 02/17/19 16:00 T-piece 8.0 02/17/19 16:00 8.0 30 02/17/19 16:00 97.7 73 20 110/54 (72) 96 02/17/19 15:36 70 02/17/19 14:57 73 18 100 T-Piece 8.0 30 77 18 100 02/17/19 13:30 100 T-Piece 8.0 30 02/17/19 13:28 66 02/17/19 12:00 8.0 30 02/17/19 12:00 97.7 73 20 140/64 (89) 99 02/17/19 12:00 T-piece 8.0 02/17/19 11:24 87 18 100 T-Piece 8.0 30 88 18 99 02/17/19 08:32 76 125/65 02/17/19 08:00 8.0 30 02/17/19 08:00 97.5 78 20 125/61 (82) 97 02/17/19 08:00 72 02/17/19 08:00 T-piece 8.0 02/17/19 07:28 96 T-Piece 8.0 30 02/17/19 07:28 77 18 99 T-Piece 8.0 30 75 18 96 02/17/19 04:00 8.0 30 02/17/19 04:00 T-piece 8.0 02/17/19 04:00 97.9 76 18 123/64 (83) 96 02/17/19 03:48 75 02/17/19 03:13 74 18 100 T-Piece 8.0 30 73 18 97 02/17/19 01:17 99 T-Piece 8.0 30 02/17/19 00:00 98.0 75 20 124/52 (76) 100 02/17/19 00:00 T-piece 8.0 02/16/19 23:32 89 18 100 T-Piece 8.0 30 86 18 98 02/16/19 23:24 69 Intake and Output 02/16/19 02/17/19 18:59 06:59 Intake Total 1295 ml 275 ml Output Total 1150 ml 800 ml Balance 145 ml -525 ml Free Water 300 ml 100 ml IV Total 575 ml Tube Feeding 420 ml 175 ml Output Urine Total 1150 ml 800 ml # Bowel Movements 9 2 Laboratory Tests 02/17/19 04:30: White Blood Count 12.6H, Red Blood Count 3.56L, Hemoglobin 9.8L, Hematocrit 29.2L, Mean Corpuscular Volume 82, Mean Corpuscular Hemoglobin 27.5, Mean Corpuscular Hemoglobin Concent 33.5, Red Cell Distribution Width 14.1, Platelet Count 270, Mean Platelet Volume 4.8L, Neutrophils (%) (Auto) 68.3, Lymphocytes ( %) (Auto) 24.2, Monocytes (%) (Auto) 3.4, Eosinophils (%) (Auto) 3.5H, Basophils (%) (Auto) 0.7, Sodium Level 140, Potassium Level 3.9, Chloride Level 103, Carbon Dioxide Level 32, Anion Gap 5, Blood Urea Nitrogen 16, Creatinine 1.1, Estimat Glomerular Filtration Rate , Glucose Level 88, Calcium Level 8.7, Phosphorus Level 3.9, Magnesium Level 3.1H, Total Bilirubin 0.2, Aspartate Amino Transf (AST/SGOT) 20, Alanine Aminotransferase (ALT/SGPT) 23, Alkaline Phosphatase 214H, Pro-B-Type Natriuretic Peptide 810H, Total Protein 8.1, Albumin 2.3L, Globulin 5.8, Albumin/Globulin Ratio 0.4L, Hepatitis A IgM Antibody [Pending], Hepatitis B Surface Antigen [Pending], Hepatitis B Core IgM Antibody [Pending], Hepatitis C Antibody [Pending] Height (Feet): 5 Height (Inches): 5.00 Weight (Pounds): 180 Objective Debilitated AA woman NCAT (+) trach coarse ronchi RR obese abd Celio Vaughan MD Feb 17, 2019 23:04
--- NOTE | 2019-02-17 23:17 | Diagnostic Imaging Report ---
Indication: Chest pain Technique: One view of the chest Comparison: 02/11/2019 post PICC radiograph Findings: Tracheostomy again demonstrated. Patient is rotated to the left. Body habitus limits evaluation. There is a right arm PICC. Questionable mild interstitial prominence is again demonstrated in the left lung. Lungs and pleural spaces are otherwise clear. The heart size is upper limits of normal. Impression: Questionable mild left lung interstitial prominence, not significantly changed over 6 days if real. No acute process otherwise
[2019-02-17 23:25] LABS: BASOPHILS % (AUTO) 0.6 % (0.0-2.0); EOSINOPHILS % (AUTO) 2.7 % (0.0-3.0); HEMATOCRIT 31.1 % (37.0-47.0); HEMOGLOBIN 10.2 G/DL (12.0-16.0); LYMPHOCYTES % (AUTO) 26.2 % (20.0-45.0); MEAN CORPUSCULAR VOLUME 84 FL (80-99); NEUTROPHILS % (AUTO) 66.5 % (45.0-75.0); PLATELET COUNT 409 K/UL (150-450); RED BLOOD COUNT 3.71 M/UL (4.20-5.40); RED CELL DISTRIBUTION WIDTH 15.6 % (11.6-14.8); WHITE BLOOD COUNT 14.5 K/UL (4.8-10.8)
[2019-02-17] MEDS ORDERED: Albuterol/Ipratropium 3ml neb HHN PRN (23:30)
[2019-02-17 23:42] LABS: ALANINE AMINOTRANSFERASE 21 U/L (12-78); ALBUMIN 2.5 G/DL (3.4-5.0); ALBUMIN/GLOBULIN RATIO 0.4 (1.0-2.7); ALKALINE PHOSPHATASE 194 U/L (46-116); ANION GAP 2 mmol/L (5-15); ASPARTATE AMINO TRANSFERASE 24 U/L (15-37); BILIRUBIN,TOTAL 0.2 MG/DL (0.2-1.0); BLOOD UREA NITROGEN 16 mg/dL (7-18); CALCIUM 8.8 MG/DL (8.5-10.1); CARBON DIOXIDE 33 MMOL/L (21-32); CHLORIDE 103 MMOL/L (98-107); CREATININE 1.3 MG/DL (0.55-1.30); POTASSIUM 4.1 MMOL/L (3.5-5.1); SODIUM 138 MMOL/L (136-145)
[2019-02-18] VITALS (24 sets, daily range): BP systolic 95–148; BP diastolic 29–90
--- NOTE | 2019-02-18 01:00 | NUR ---
NURSE NOTES: RECEIVED REPORT ER [place] rn on t-piece via trach schiely 6 o2 sat 100 o/o suction suction and reposition no acute rep distress noted iv infusing well rt upper arm picc dressing dry and intact urinary output good with extrenal cath
--- NOTE | 2019-02-18 01:00 | NUR ---
NURSE NOTES: pt frequently suctioned with whitish tk secretions lg in amt.02 sat 100%.
--- NOTE | 2019-02-18 03:00 | NUR ---
NURSE NOTES: Complete bath given. pt had lg soft yellow bowel movement,
--- NOTE | 2019-02-18 04:00 | NUR ---
NURSE NOTES: Picture taken with pts pressure sore and new drsg was applied. Wound appeared healing.
[2019-02-18] MEDS ORDERED: Acetaminophen 650mg/20.3ml GT PRN (05:44)
[2019-02-18] MEDS: D5NS 1,000 ML IV SCH (05:53)
--- NOTE | 2019-02-18 06:00 | NUR ---
NURSE NOTES: No resp. distress noted. vss.
--- NOTE | 2019-02-18 06:50 | NUR ---
RESPIRATORY NOTE: Received pt on vent with current settings in place. no resp distress noted. pt is trached with [id number] in place, secured via trach tie/guard. no redness or skin wounds visible. removed pt from vent at aprx 1000 per order; vent prn. pt now on tpiece at 30% fio2. Vitals WNL. RnDeirdre at bedside and fully aware. Will cont to closely monitor.
--- NOTE | 2019-02-18 07:29 | NUR ---
HAND-OFF: Report given to Deirdre PAEZ.
--- NOTE | 2019-02-18 07:30 | NUR ---
NURSE NOTES: RECEIVED PATIENT FROM Esequiel SHELTON RN. PATIENT IS LYING IN BED, OPEN EYES BUT DOESN'TTRACK, NONVERBAL. HOOKED TO NATURAL SCIENCE CURATOR. HR OF 67. TRACH TO VENT, ON CPAP VT 450, PS 14, FiO2 30, PEEP 5. SATING AT 100%. NO SIGNS OF DISTRESS OF THE MOMENT. NOTED PUREWICK. SKIN ALTERATION NOTED. ON P200 MATTRESS. R UA PICC, DRESSING DRY AND INTACT. WITH VF RUNNING AT D5NS AT 50ML/HR. CALL LIGHT WITHIN REACH. BED AT LOWEST POSITION. SIDE RAILS PADDED. WILL CONTINUE TO MONITOR.
--- NOTE | 2019-02-18 07:53 | General Progress Note ---
Assessment/Plan Problem List: (1) Seizure ICD Codes: R56.9 - Unspecified convulsions SNOMED: 43845340 (2) Anemia ICD Codes: D64.9 - Anemia, unspecified SNOMED: 156390991 Qualifiers: Qualified Codes: D64.9 - Anemia, unspecified (3) Sepsis ICD Codes: A41.9 - Sepsis, unspecified organism SNOMED: 73363674, 822417838 Qualifiers: Qualified Codes: A41.9 - Sepsis, unspecified organism (4) Respiratory failure with hypoxia ICD Codes: J96.91 - Respiratory failure, unspecified with hypoxia SNOMED: 77022002688877116 Qualifiers: Qualified Codes: J96.21 - Acute and chronic respiratory failure with hypoxia (5) HCAP (healthcare-associated pneumonia) ICD Codes: J18.9 - Pneumonia, unspecified organism SNOMED: 713413141, 142469529 (6) Sacral decubitus ulcer ICD Codes: L89.159 - Pressure ulcer of sacral region, unspecified stage SNOMED: 093474813 (7) HTN (hypertension) ICD Codes: I10 - Essential (primary) hypertension SNOMED: 83296228 (8) Chronic vegetative state ICD Codes: R40.3 - Persistent vegetative state SNOMED: 58687273 (9) Chronic respiratory failure ICD Codes: J96.10 - Chronic respiratory failure, unspecified whether with hypoxia or hypercapnia SNOMED: 89498402 (10) Limited mobility ICD Codes: Z74.09 - Other reduced mobility SNOMED: 5381862 Status: stable, progressing Assessment/Plan: vent prn as needed resp rx suctioning as needed gt feeds monitor for vomiting bowel regime monitor residuals cont keppra for szs repeat sputum culture transfuse prn dc planning Subjective ROS Limited/Unobtainable: Yes Constitutional: Reports: malaise, weakness HEENT: Reports: no symptoms Cardiovascular: Reports: no symptoms Respiratory: Reports: cough, shortness of breath, sputum Gastrointestinal/Abdominal: Reports: difficulty swallowing Genitourinary: Reports: no symptoms Neurologic/Psychiatric: Reports: pre-existing deficit Endocrine: Reports: no symptoms Hematologic/Lymphatic: Reports: anemia Allergies: Coded Allergies: CODEINE (Verified Allergy, Unknown, HIVES, 09/15/09) All Systems: reviewed and negative except above Subjective s/p [employer] ENG[employer] for resp distress from copious secretion.placed back on the vent. feeds held. cxr clear but CT shows left lower lobe infiltrate Objective Last 24 Hour Vital Signs Date Time Temp Pulse Resp B/P (MAP) Pulse Ox O2 Delivery O2 Flow Rate FiO2 02/18/19 07:08 78 22 30 02/18/19 06:00 76 24 124/52 (76) 99 02/18/19 05:28 80 23 30 02/18/19 05:00 81 25 122/90 (101) 98 02/18/19 04:00 79 02/18/19 04:00 98.6 82 17 114/29 (57) 98 02/18/19 04:00 30 02/18/19 04:00 97 02/18/19 04:00 Mechanical Ventilator 02/18/19 03:26 77 28 98 Mechanical Ventilator 30 77 28 30 02/18/19 03:00 87 15 122/50 (74) 98 02/18/19 02:00 78 29 120/56 (77) 98 02/18/19 01:24 82 28 30 02/18/19 01:00 81 28 108/50 (69) 98 02/18/19 00:00 85 26 109/44 (65) 99 02/18/19 00:00 30 02/18/19 00:00 87 02/18/19 00:00 98.2 87 24 108/50 (69) 98 02/18/19 00:00 Mechanical Ventilator 02/17/19 23:18 89 20 30 02/17/19 23:16 87 18 100 T-Piece 8.0 30 89 18 99 02/17/19 22:30 90 02/17/19 22:30 97.9 75 18 118/60 (79) 98 02/17/19 21:59 97 02/17/19 21:57 89 18 30 02/17/19 21:57 89 18 100 Mechanical Ventilator 02/17/19 21:10 76 130/72 02/17/19 20:58 99 T-Piece 8.0 30 02/17/19 20:00 T-piece 8.0 02/17/19 20:00 8.0 30 02/17/19 20:00 97.9 75 18 130/72 (91) 98 02/17/19 20:00 74 02/17/19 16:00 T-piece 8.0 02/17/19 16:00 8.0 30 02/17/19 16:00 97.7 73 20 110/54 (72) 96 02/17/19 15:36 70 02/17/19 14:57 73 18 100 T-Piece 8.0 30 77 18 100 02/17/19 13:30 100 T-Piece 8.0 30 02/17/19 13:28 66 02/17/19 12:00 8.0 30 02/17/19 12:00 97.7 73 20 140/64 (89) 99 02/17/19 12:00 T-piece 8.0 02/17/19 11:24 87 18 100 T-Piece 8.0 30 88 18 99 02/17/19 08:32 76 125/65 02/17/19 08:00 8.0 30 02/17/19 08:00 97.5 78 20 125/61 (82) 97 02/17/19 08:00 72 02/17/19 08:00 T-piece 8.0 Intake and Output 02/17/19 02/18/19 19:00 07:00 Intake Total 220 ml 1015 ml Output Total 700 ml 680 ml Balance -480 ml 335 ml Free Water 150 ml 280 ml IV Total 350 ml Tube Feeding 70 ml 385 ml Output Urine Total 700 ml 680 ml # Bowel Movements 4 2 Laboratory Tests 02/17/19 22:05: Arterial Blood pH 7.393, Arterial Blood Partial Pressure CO2 49.9H, Arterial Blood Partial Pressure O2 494.6H, Arterial Blood HCO3 29.7H, Arterial Blood Oxygen Saturation 99.7, Arterial Blood Base Excess 4.0H, Murphy Test Positive 02/17/19 22:52: White Blood Count 14.5H, Red Blood Count 3.71L, Hemoglobin 10.2L, Hematocrit 31.1L, Mean Corpuscular Volume 84, Mean Corpuscular Hemoglobin 27.4, Mean Corpuscular Hemoglobin Concent 32.6, Red Cell Distribution Width 15.6H, Platelet Count 409#, Mean Platelet Volume 5.1L, Neutrophils (%) (Auto) 66.5, Lymphocytes (%) (Auto) 26.2, Monocytes (%) (Auto) 4.0, Eosinophils (%) (Auto) 2.7, Basophils (%) (Auto) 0.6, Sodium Level 138, Potassium Level 4.1, Chloride Level 103, Carbon Dioxide Level 33H, Anion Gap 2L, Blood Urea Nitrogen 16, Creatinine 1.3, Estimat Glomerular Filtration Rate , Glucose Level 95, Calcium Level 8.8, Total Bilirubin 0.2, Aspartate Amino Transf (AST/SGOT) 24, Alanine Aminotransferase (ALT/SGPT) 21, Alkaline Phosphatase 194H, Total Protein 8.6H, Albumin 2.5L, Globulin 6.1, Albumin/Globulin Ratio 0.4L Height (Feet): 5 Height (Inches): 5.00 Weight (Pounds): 180 Objective General Appearance: WD/WN, confused Neck: supple Cardiovascular: normal rate, regular rhythm Respiratory/Chest: chest wall non-tender, rhonchi - bilaterally(minimal) Abdomen: normal bowel sounds, non tender, soft, no organomegaly Edema: no edema noted Arm (L), no edema noted Arm (R), no edema noted Leg (L), no edema noted Leg (R), no edema noted Pedal (L), no edema noted Pedal (R), no edema noted Generalized Neurologic: disoriented, unresponsive, aphasia Irvin Beltrán MD Feb 18, 2019 07:53
--- NOTE | 2019-02-18 08:08 | NUR ---
NURSE NOTES: SEEN AND EXAMINED BY DR CABA WITH NEW ORDERS MADE. OK TO RESTART TUBE FEEDING. WILL CONTINUE TO MONITOR.
--- NOTE | 2019-02-18 09:00 | NUR ---
NURSE NOTES: PATIENT SUCTIONED AND REPOSITIONED. ORAL CARE DONE.
--- NOTE | 2019-02-18 09:01 | NUR ---
CASE MANAGEMENT:REVIEW 02/18/19 SI: SEPSIS. [facility] PNA SACRAL DECUB. CHRONIC RESP FAILURE RAPID RESPONSE CALLED LAST NIGHT 98.6 81 18 131/47 100% BACK ON VENT FIO2 30% WBC+14.5 H/H-10.2/31.1 IS: KEPPRA GT Q12 LOPRESSOR GT IV PROTONIX Q12 HEPARIN SQ Q12 ATROPINE SL TID MUCOMYST HHN Q4HRS RTC IVF@50/HR : NOW IN ICU PLAN: PATIENT HAS BEEN REFERRED TO [facility] PATIENT HAS ALSO BEEN REFERRED TO [facility]
--- NOTE | 2019-02-18 09:06 | NUR ---
TRANSFER UPDATE TRANSFER ORDER NOTED CALLED [facility] AND SPOKE WITH JAQUELIN WHO STATED PATIENT HAS NOT BEEN PLACED ON THE LIST FOR TRANSFER. MESSAGE LEFT FOR DR CABA FAXED FACE SHEET TO TRANSFER CTR [facility] T: [phone] F: [phone]
[2019-02-18] MEDS: Ascorbic Acid 500mg tab GT SCH (09:08)
[2019-02-18] MEDS: Pantoprazole Inj IVP SCH ×2 (09:08→20:53)
[2019-02-18] MEDS: levETIRAcetam 500mg/5ml Liquid GT SCH ×2 (09:08→20:52)
[2019-02-18] MEDS: Heparin 5000 units/ml inj SUBQ SCH ×2 (09:12→21:01)
--- NOTE | 2019-02-18 09:28 | NUR ---
RD ASSESSMENT & RECOMMENDATIONS SEE CARE ACTIVITY FOR COMPLETE ASSESSMENT DAILY ESTIMATED NEEDS: Needs based on Pulmonary, wounds, bedbound/ 60kg adj 25-28 kcals/kg 7138-9242 total kcals 1.25-2 g protein/kg 75-120 g total protein 25-30 mL/kg 0701-9467 total fluid mLs NUTRITION DIAGNOSIS: * Swallowing difficulty R/T respiratory status as evidenced by pt on T-collar, now back the vent, PEG dep, TF changed to low rate at this time due to episodes of vomiting + residuals. * Increased kcal/prot needs R/T wound healing as evidenced by BL buttocks and sacral wound photos, refer to eval. (CURRENT TF:Glucerna 1.5 @35ml) ENTERAL NUTRITION RECOMMENDATIONS: Glucerna 1.5 @ 45ml/hr x 24 hrs to provide 1080ml, 1620kcal, 89g prot, 820ml free water - W/ continued good TF tolerance, rec to increase goal rate to 45ml/hr x 24 hrs to meet 100% est kcal/prot needs - HOB over 30 degrees - Water flush of 170ml q 6 hrs * W/ any further TF intolerances, rec TF change to elemental and carb controlled formula of Vital AF 1.2 for possible improved tolerance -> Rec VITAL AF 1.2 @ 55ml/hr x 24 hrs to provide 1320ml, 1584kcal, 99g prot, 1060ml free water ADDITIONAL RECOMMENDATIONS: 1) Re-calibrated bedscale wt for accurate CBW 2) Wound healing: Add Cristian 1pkt BID w/ improved Tf tolerance + MVI x1 daily 3) Monitor lytes, replete as needed 4) SSI prn - good glycemic control 5) Monitor TF tolerance: GJ conversion held at this time rec to increase TF as above w/ continued good TF tolerance
[2019-02-18 09:34] LABS: PHOSPHORUS 4.6 MG/DL (2.5-4.9)
--- NOTE | 2019-02-18 09:52 | Infectious Diseases Prog Note ---
Assessment/Plan Assessment/Plan A 1. Acinetobacter, pseudomonas & Klebsiella pneumonia treated 2. respiratory failure 3. hypertension 4. CVA 5. dementia 6. sacral decubitus ulcer 7. rectal VRE colonization 8. Anemia 9. Proteus UTI 10. Acute renal failure 11. Leukocytosis P 1. Observe off antibiotic 2. Frequent suctioning Subjective ROS Limited/Unobtainable: Yes Constitutional: Reports: other - transferred to ICU; Denies: fever Respiratory: Reports: other - was put back on ventilator, thick respiratory secretions Allergies: Coded Allergies: CODEINE (Verified Allergy, Unknown, HIVES, 09/15/09) Objective Vital Signs Last 24 Hour Vital Signs Date Time Temp Pulse Resp B/P (MAP) Pulse Ox O2 Delivery O2 Flow Rate FiO2 02/18/19 09:00 76 23 108/79 (89) 100 02/18/19 09:00 56 132/51 02/18/19 08:38 66 18 30 02/18/19 08:00 30 02/18/19 08:00 98.6 81 131/47 (75) 100 02/18/19 08:00 82 02/18/19 07:08 78 22 30 02/18/19 07:00 71 148/55 (86) 100 02/18/19 06:00 76 24 124/52 (76) 99 02/18/19 05:28 80 23 30 02/18/19 05:00 81 25 122/90 (101) 98 02/18/19 04:00 79 02/18/19 04:00 98.6 82 17 114/29 (57) 98 02/18/19 04:00 30 02/18/19 04:00 97 02/18/19 04:00 Mechanical Ventilator 02/18/19 03:26 77 28 98 Mechanical Ventilator 30 77 28 30 02/18/19 03:00 87 15 122/50 (74) 98 02/18/19 02:00 78 29 120/56 (77) 98 02/18/19 01:24 82 28 30 02/18/19 01:00 81 28 108/50 (69) 98 02/18/19 00:00 85 26 109/44 (65) 99 02/18/19 00:00 30 02/18/19 00:00 87 02/18/19 00:00 98.2 87 24 108/50 (69) 98 02/18/19 00:00 Mechanical Ventilator 02/17/19 23:18 89 20 30 02/17/19 23:16 87 18 100 T-Piece 8.0 30 89 18 99 02/17/19 22:30 90 02/17/19 22:30 97.9 75 18 118/60 (79) 98 02/17/19 21:59 97 02/17/19 21:57 89 18 30 02/17/19 21:57 89 18 100 Mechanical Ventilator 02/17/19 21:10 76 130/72 02/17/19 20:58 99 T-Piece 8.0 30 02/17/19 20:00 T-piece 8.0 02/17/19 20:00 8.0 30 02/17/19 20:00 97.9 75 18 130/72 (91) 98 02/17/19 20:00 74 02/17/19 16:00 T-piece 8.0 02/17/19 16:00 8.0 30 02/17/19 16:00 97.7 73 20 110/54 (72) 96 02/17/19 15:36 70 02/17/19 14:57 73 18 100 T-Piece 8.0 30 77 18 100 02/17/19 13:30 100 T-Piece 8.0 30 02/17/19 13:28 66 02/17/19 12:00 8.0 30 02/17/19 12:00 97.7 73 20 140/64 (89) 99 02/17/19 12:00 T-piece 8.0 02/17/19 11:24 87 18 100 T-Piece 8.0 30 88 18 99 Height (Feet): 5 Height (Inches): 5.00 Weight (Pounds): 180 General Appearance: no acute distress HEENT: status post trach Respiratory/Chest: decreased breath sounds, other - on ventilator Cardiovascular: normal rate, other - R arm PICC line Abdomen: soft, non tender, other - GT status Extremities: no edema Neurologic/Psychiatric: aphasia Microbiology Date/Time Source Procedure Growth Status 02/16/19 13:35 Stool Clostridium difficile Toxin Assay - Final Complete Laboratory Tests Test 02/17/19 22:05 02/17/19 22:52 02/18/19 08:40 Arterial Blood pH 7.393 (7.350-7.450) Arterial Blood Partial Pressure CO2 49.9 mmHg (35.0-45.0) H Arterial Blood Partial Pressure O2 494.6 mmHg (75.0-100.0) H Arterial Blood HCO3 29.7 mmol/L (22.0-26.0) H Arterial Blood Oxygen Saturation 99.7 % (95-100) Arterial Blood Base Excess 4.0 (-2-2) H Murphy Test Positive White Blood Count 14.5 K/UL (4.8-10.8) H Red Blood Count 3.71 M/UL (4.20-5.40) L Hemoglobin 10.2 G/DL (12.0-16.0) L Hematocrit 31.1 % (37.0-47.0) L Mean Corpuscular Volume 84 FL (80-99) Mean Corpuscular Hemoglobin 27.4 PG (27.0-31.0) Mean Corpuscular Hemoglobin Concent 32.6 G/DL (32.0-36.0) Red Cell Distribution Width 15.6 % (11.6-14.8) H Platelet Count 409 K/UL (150-450) # Mean Platelet Volume 5.1 FL (6.5-10.1) L Neutrophils (%) (Auto) 66.5 % (45.0-75.0) Lymphocytes (%) (Auto) 26.2 % (20.0-45.0) Monocytes (%) (Auto) 4.0 % (1.0-10.0) Eosinophils (%) (Auto) 2.7 % (0.0-3.0) Basophils (%) (Auto) 0.6 % (0.0-2.0) Sodium Level 138 MMOL/L (136-145) Potassium Level 4.1 MMOL/L (3.5-5.1) Chloride Level 103 MMOL/L (98-107) Carbon Dioxide Level 33 MMOL/L (21-32) H Anion Gap 2 mmol/L (5-15) L Blood Urea Nitrogen 16 mg/dL (7-18) Creatinine 1.3 MG/DL (0.55-1.30) Estimat Glomerular Filtration Rate mL/min (>60) Glucose Level 95 MG/DL (74-106) Calcium Level 8.8 MG/DL (8.5-10.1) Total Bilirubin 0.2 MG/DL (0.2-1.0) Aspartate Amino Transf (AST/SGOT) 24 U/L (15-37) Alanine Aminotransferase (ALT/SGPT) 21 U/L (12-78) Alkaline Phosphatase 194 U/L (46-116) H Total Protein 8.6 G/DL (6.4-8.2) H Albumin 2.5 G/DL (3.4-5.0) L Globulin 6.1 g/dL Albumin/Globulin Ratio 0.4 (1.0-2.7) L Phosphorus Level 4.6 MG/DL (2.5-4.9) Magnesium Level 2.4 MG/DL (1.8-2.4) Current Medications Medications (Trade) Dose Ordered Sig/Maicol Route PRN Reason Start Time Stop Time Status Last Admin Dose Admin Acetaminophen (Tylenol) 650 mg Q4H PRN GT Mild Pain/Temp > 100.5 02/18/19 05:44 03/05/19 05:43 Acetylcysteine (Mucomyst) 100 mg Q4HRT HHN 02/18/19 07:00 03/03/19 12:59 Albuterol/ Ipratropium (Albuterol/ Ipratropium) 3 ml Q4H PRN HHN Shortness of Breath 02/18/19 05:45 02/22/19 05:44 Ascorbic Acid (Vitamin C) 250 mg DAILY GT 02/18/19 09:00 02/24/19 08:59 02/18/19 09:08 Atropine Sulfate (Atropine Opth Adriana) 1 drop TID SL 02/18/19 09:00 03/12/19 09:29 02/18/19 09:09 Bisacodyl (Dulcolax) 10 mg PRN PRN RECTAL Constipation 02/18/19 05:30 02/23/19 05:29 Chlorhexidine Gluconate (Cesilia-Hex 2%) 1 applic DAILY@2000 TOPIC 02/18/19 20:00 03/12/19 19:59 Dextrose/Sodium Chloride 1,000 ml @ 50 mls/hr Q20H IV 02/18/19 06:00 03/19/19 05:59 02/18/19 05:53 Heparin Sodium (Porcine) (Heparin 5000 units/ml) 5,000 units EVERY 12 HOURS SUBQ 02/18/19 09:00 03/16/19 23:14 02/18/19 09:12 Hydralazine HCl (Apresoline) 25 mg Q4H PRN GT SBP above 160 02/18/19 05:46 03/09/19 05:45 Levetiracetam (Keppra) 750 mg Q12HR GT 02/18/19 09:00 03/16/19 23:29 02/18/19 09:08 Metoclopramide HCl (Reglan) 10 mg Q6H PRN IVP Nausea & Vomiting 02/18/19 05:46 03/09/19 05:45 Metoprolol Tartrate (Lopressor) 25 mg Q12HR GT 02/18/19 09:00 03/16/19 23:29 Ondansetron HCl (Zofran) 4 mg Q6H PRN GT Nausea & Vomiting 02/18/19 05:46 02/23/19 05:45 Pantoprazole (Protonix) 40 mg Q12HR IVP 02/18/19 09:00 03/16/19 23:29 02/18/19 09:08 Chauncey Liriano MD Feb 18, 2019 09:52
--- NOTE | 2019-02-18 10:30 | NUR ---
NURSE NOTES: RESTARTED FEEDING AND TOLERATING. PLACED THE PATIENT BACK ON TPIECE ON FiO2 30%, 8L. SATING AT 100%. WILL CONTINUE TO MONITOR.
--- NOTE | 2019-02-18 10:38 | Nephrology Progress Note ---
Assessment/Plan Problem List: (1) Acute renal failure (ARF) Assessment: Cr stable (2) Chronic respiratory failure (3) Anemia (4) Sepsis Assessment Acute renal failure Respiratory failure - Trach Low Mag- Low k , Low Na Anemia UTI / Sepsis Proteinuria / HypoAlbuminemia high Trigs Sz decubs bed bound DNR Plan K and Mag and Phos supplement as needed Hydrate Urine studies avoid Nephrotoxics mag K Phos supplements as needed monitor renal parameters Subjective ROS Limited/Unobtainable: Yes Objective Objective Last 24 Hour Vital Signs Date Time Temp Pulse Resp B/P (MAP) Pulse Ox O2 Delivery O2 Flow Rate FiO2 02/18/19 10:10 8.0 30 02/18/19 10:00 67 125/66 (85) 100 02/18/19 09:00 76 23 108/79 (89) 100 02/18/19 09:00 56 132/51 02/18/19 08:38 66 18 30 02/18/19 08:00 30 02/18/19 08:00 Mechanical Ventilator 02/18/19 08:00 98.6 81 131/47 (75) 100 02/18/19 08:00 82 02/18/19 07:08 78 22 30 02/18/19 07:00 71 148/55 (86) 100 02/18/19 06:00 76 24 124/52 (76) 99 02/18/19 05:28 80 23 30 02/18/19 05:00 81 25 122/90 (101) 98 02/18/19 04:00 79 02/18/19 04:00 98.6 82 17 114/29 (57) 98 02/18/19 04:00 30 02/18/19 04:00 97 02/18/19 04:00 Mechanical Ventilator 02/18/19 03:26 77 28 98 Mechanical Ventilator 30 77 28 30 02/18/19 03:00 87 15 122/50 (74) 98 02/18/19 02:00 78 29 120/56 (77) 98 02/18/19 01:24 82 28 30 02/18/19 01:00 81 28 108/50 (69) 98 02/18/19 00:00 85 26 109/44 (65) 99 02/18/19 00:00 30 02/18/19 00:00 87 02/18/19 00:00 98.2 87 24 108/50 (69) 98 02/18/19 00:00 Mechanical Ventilator 02/17/19 23:18 89 20 30 02/17/19 23:16 87 18 100 T-Piece 8.0 30 89 18 99 02/17/19 22:30 90 02/17/19 22:30 97.9 75 18 118/60 (79) 98 02/17/19 21:59 97 02/17/19 21:57 89 18 30 02/17/19 21:57 89 18 100 Mechanical Ventilator 02/17/19 21:10 76 130/72 02/17/19 20:58 99 T-Piece 8.0 30 02/17/19 20:00 T-piece 8.0 02/17/19 20:00 8.0 30 02/17/19 20:00 97.9 75 18 130/72 (91) 98 02/17/19 20:00 74 02/17/19 16:00 T-piece 8.0 02/17/19 16:00 8.0 30 02/17/19 16:00 97.7 73 20 110/54 (72) 96 02/17/19 15:36 70 02/17/19 14:57 73 18 100 T-Piece 8.0 30 77 18 100 02/17/19 13:30 100 T-Piece 8.0 30 02/17/19 13:28 66 02/17/19 12:00 8.0 30 02/17/19 12:00 97.7 73 20 140/64 (89) 99 02/17/19 12:00 T-piece 8.0 02/17/19 11:24 87 18 100 T-Piece 8.0 30 88 18 99 Intake and Output 02/17/19 02/18/19 19:00 07:00 Intake Total 220 ml 1065 ml Output Total 700 ml 680 ml Balance -480 ml 385 ml Free Water 150 ml 280 ml IV Total 400 ml Tube Feeding 70 ml 385 ml Output Urine Total 700 ml 680 ml # Bowel Movements 4 2 Laboratory Tests 02/17/19 22:05: Arterial Blood pH 7.393, Arterial Blood Partial Pressure CO2 49.9H, Arterial Blood Partial Pressure O2 494.6H, Arterial Blood HCO3 29.7H, Arterial Blood Oxygen Saturation 99.7, Arterial Blood Base Excess 4.0H, Murphy Test Positive 02/17/19 22:52: White Blood Count 14.5H, Red Blood Count 3.71L, Hemoglobin 10.2L, Hematocrit 31.1L, Mean Corpuscular Volume 84, Mean Corpuscular Hemoglobin 27.4, Mean Corpuscular Hemoglobin Concent 32.6, Red Cell Distribution Width 15.6H, Platelet Count 409#, Mean Platelet Volume 5.1L, Neutrophils (%) (Auto) 66.5, Lymphocytes (%) (Auto) 26.2, Monocytes (%) (Auto) 4.0, Eosinophils (%) (Auto) 2.7, Basophils (%) (Auto) 0.6, Sodium Level 138, Potassium Level 4.1, Chloride Level 103, Carbon Dioxide Level 33H, Anion Gap 2L, Blood Urea Nitrogen 16, Creatinine 1.3, Estimat Glomerular Filtration Rate , Glucose Level 95, Calcium Level 8.8, Total Bilirubin 0.2, Aspartate Amino Transf (AST/SGOT) 24, Alanine Aminotransferase (ALT/SGPT) 21, Alkaline Phosphatase 194H, Total Protein 8.6H, Albumin 2.5L, Globulin 6.1, Albumin/Globulin Ratio 0.4L 02/18/19 08:40: Phosphorus Level 4.6, Magnesium Level 2.4 Height (Feet): 5 Height (Inches): 5.00 Weight (Pounds): 180 General Appearance: no apparent distress EENT: other - vented Cardiovascular: normal rate Respiratory/Chest: decreased breath sounds Abdomen: soft Eric Cortez MD Feb 18, 2019 10:38
--- NOTE | 2019-02-18 11:10 | NUR ---
NURSE NOTES: SEEN AND EXAMINED BY DR Jm AMARO AND DR HER. AGREED TO RESTART TUBE FEEDING. NNO. WILL CONTINUE TO MONITOR.
[2019-02-18] MEDS: Albuterol/Ipratropium 3ml neb HHN PRN ×4 (12:58→22:55)
--- NOTE | 2019-02-18 13:30 | NUR ---
NURSE NOTES: SEEN AND EXAMINED BY DR LI AND ORDERED FOR STAT ABG. TOLERATING TPIECE AND TUBE FEEDING. WILL CONTINUE TO MONITOR.
--- NOTE | 2019-02-18 15:05 | NUR ---
NURSE NOTES: PATIENT KEPT CLEAN AND DRY. NO SIGSN OF DISTRESS. WILL CONTINUE TO MONITOR.
--- NOTE | 2019-02-18 16:15 | Pulmonology Progress Note ---
Assessment/Plan Assessment/Plan Pulmonary Progress Note HPI This an 83-year-old female with history of tracheostomy, VDRF, feeding tube, admitted with Pneumonia, respiratory distress. Tolerating TC Past Medical History: VDRF, Trach, G tube, Hypertension, Cardiac disease, Dementia, Previous CVA, TIA, Seizure disorder, previous cancer Impression: Sepsis syndrome Pneumonia VDRF, Trach, G tube, Hypertension, Cardiac disease, Dementia, Previous CVA, Seizure disorder, Respiratory failure with hypoxia Anemia Sacral ulcer renal cyst Plan continue current AB TC as tolerated mucomyst and duoneb SNF meds as is Adjust oxygen as needed Monitor labs for change changes noted Patient is a DNR. No CPR. dc planning per family and primary impression, plan, and exam edited and reviewed in detail care discussed with RN Subjective Allergies: Coded Allergies: CODEINE (Verified Allergy, Unknown, HIVES, 09/15/09) Subjective on AC on mucomyst and duoneb noted congestion supportive care noted RT care reviewed overnight care reviewed Objective Vital Signs Noted Objective WDWN NAD contracted on vent reduced breath sounds bilaterally with scattered rhonchi same [id number] without MRG NABS nontender no HSM no CC minimal nonfocal nonverbal trach and gt reviewed and edited Laboratory Tests Noted Subjective ROS Limited/Unobtainable: No Allergies: Coded Allergies: CODEINE (Verified Allergy, Unknown, HIVES, 09/15/09) Objective Last 24 Hour Vital Signs Date Time Temp Pulse Resp B/P (MAP) Pulse Ox O2 Delivery O2 Flow Rate FiO2 02/18/19 16:00 8.0 30 02/18/19 16:00 Mechanical Ventilator 02/18/19 15:00 73 23 144/58 (86) 100 02/18/19 14:52 72 18 100 T-Piece 8.0 30 70 18 100 02/18/19 14:00 68 18 100/40 (60) 97 02/18/19 13:00 66 24 109/50 (69) 100 02/18/19 12:04 73 02/18/19 12:03 98.6 76 15 118/46 (70) 99 02/18/19 12:00 Mechanical Ventilator 02/18/19 11:00 75 21 128/50 (76) 98 02/18/19 11:00 70 18 100 T-Piece 8.0 30 68 18 100 02/18/19 10:10 8.0 30 02/18/19 10:00 67 125/66 (85) 100 02/18/19 09:00 76 23 108/79 (89) 100 02/18/19 09:00 56 132/51 02/18/19 08:38 66 18 30 02/18/19 08:00 30 02/18/19 08:00 Mechanical Ventilator 02/18/19 08:00 98.6 81 131/47 (75) 100 02/18/19 08:00 82 02/18/19 07:08 78 22 30 02/18/19 07:00 71 148/55 (86) 100 02/18/19 06:00 76 24 124/52 (76) 99 02/18/19 05:28 80 23 30 02/18/19 05:00 81 25 122/90 (101) 98 02/18/19 04:00 79 02/18/19 04:00 98.6 82 17 114/29 (57) 98 02/18/19 04:00 30 02/18/19 04:00 97 02/18/19 04:00 Mechanical Ventilator 02/18/19 03:26 77 28 98 Mechanical Ventilator 30 77 28 30 02/18/19 03:00 87 15 122/50 (74) 98 02/18/19 02:00 78 29 120/56 (77) 98 02/18/19 01:24 82 28 30 02/18/19 01:00 81 28 108/50 (69) 98 02/18/19 00:00 85 26 109/44 (65) 99 02/18/19 00:00 30 02/18/19 00:00 87 02/18/19 00:00 98.2 87 24 108/50 (69) 98 02/18/19 00:00 Mechanical Ventilator 02/17/19 23:18 89 20 30 02/17/19 23:16 87 18 100 T-Piece 8.0 30 89 18 99 02/17/19 22:30 90 02/17/19 22:30 97.9 75 18 118/60 (79) 98 02/17/19 21:59 97 02/17/19 21:57 89 18 30 02/17/19 21:57 89 18 100 Mechanical Ventilator 02/17/19 21:10 76 130/72 02/17/19 20:58 99 T-Piece 8.0 30 02/17/19 20:00 T-piece 8.0 02/17/19 20:00 8.0 30 02/17/19 20:00 97.9 75 18 130/72 (91) 98 02/17/19 20:00 74 Intake and Output 02/17/19 02/18/19 19:00 07:00 Intake Total 220 ml 1065 ml Output Total 700 ml 680 ml Balance -480 ml 385 ml Free Water 150 ml 280 ml IV Total 400 ml Tube Feeding 70 ml 385 ml Output Urine Total 700 ml 680 ml # Bowel Movements 4 2 Microbiology Date/Time Source Procedure Growth Status 02/16/19 13:35 Stool Clostridium difficile Toxin Assay - Final Complete Laboratory Tests 02/17/19 22:05: Arterial Blood pH 7.393, Arterial Blood Partial Pressure CO2 49.9H, Arterial Blood Partial Pressure O2 494.6H, Arterial Blood HCO3 29.7H, Arterial Blood Oxygen Saturation 99.7, Arterial Blood Base Excess 4.0H, Murphy Test Positive 02/17/19 22:52: White Blood Count 14.5H, Red Blood Count 3.71L, Hemoglobin 10.2L, Hematocrit 31.1L, Mean Corpuscular Volume 84, Mean Corpuscular Hemoglobin 27.4, Mean Corpuscular Hemoglobin Concent 32.6, Red Cell Distribution Width 15.6H, Platelet Count 409#, Mean Platelet Volume 5.1L, Neutrophils (%) (Auto) 66.5, Lymphocytes (%) (Auto) 26.2, Monocytes (%) (Auto) 4.0, Eosinophils (%) (Auto) 2.7, Basophils (%) (Auto) 0.6, Sodium Level 138, Potassium Level 4.1, Chloride Level 103, Carbon Dioxide Level 33H, Anion Gap 2L, Blood Urea Nitrogen 16, Creatinine 1.3, Estimat Glomerular Filtration Rate , Glucose Level 95, Calcium Level 8.8, Total Bilirubin 0.2, Aspartate Amino Transf (AST/SGOT) 24, Alanine Aminotransferase (ALT/SGPT) 21, Alkaline Phosphatase 194H, Total Protein 8.6H, Albumin 2.5L, Globulin 6.1, Albumin/Globulin Ratio 0.4L 02/18/19 08:40: Phosphorus Level 4.6, Magnesium Level 2.4 02/18/19 13:27: Arterial Blood pH 7.410, Arterial Blood Partial Pressure CO2 45.4H, Arterial Blood Partial Pressure O2 78.3, Arterial Blood HCO3 28.1H, Arterial Blood Oxygen Saturation 94.7L, Arterial Blood Base Excess 3.1H, Murphy Test Positive Current Medications Medications (Trade) Dose Ordered Sig/Maicol Route PRN Reason Start Time Stop Time Status Last Admin Dose Admin Acetaminophen (Tylenol) 650 mg Q4H PRN GT Mild Pain/Temp > 100.5 02/18/19 05:44 03/05/19 05:43 Acetylcysteine (Mucomyst) 100 mg Q4HRT HHN 02/18/19 07:00 03/03/19 12:59 02/18/19 14:52 Albuterol/ Ipratropium (Albuterol/ Ipratropium) 3 ml Q4H PRN HHN Shortness of Breath 02/18/19 05:45 02/22/19 05:44 02/18/19 14:52 Ascorbic Acid (Vitamin C) 250 mg DAILY GT 02/18/19 09:00 02/24/19 08:59 02/18/19 09:08 Atropine Sulfate (Atropine Opth Adriana) 1 drop TID SL 02/18/19 09:00 03/12/19 09:29 02/18/19 15:02 Bisacodyl (Dulcolax) 10 mg PRN PRN RECTAL Constipation 02/18/19 05:30 02/23/19 05:29 Chlorhexidine Gluconate (Cesilia-Hex 2%) 1 applic DAILY@2000 TOPIC 02/18/19 20:00 03/12/19 19:59 Dextrose/Sodium Chloride 1,000 ml @ 50 mls/hr Q20H IV 02/18/19 06:00 03/19/19 05:59 02/18/19 05:53 Heparin Sodium (Porcine) (Heparin 5000 units/ml) 5,000 units EVERY 12 HOURS SUBQ 02/18/19 09:00 03/16/19 23:14 02/18/19 09:12 Hydralazine HCl (Apresoline) 25 mg Q4H PRN GT SBP above 160 02/18/19 05:46 03/09/19 05:45 Levetiracetam (Keppra) 750 mg Q12HR GT 02/18/19 09:00 03/16/19 23:29 02/18/19 09:08 Metoclopramide HCl (Reglan) 10 mg Q6H PRN IVP Nausea & Vomiting 02/18/19 05:46 03/09/19 05:45 Metoprolol Tartrate (Lopressor) 25 mg Q12HR GT 02/18/19 09:00 03/16/19 23:29 Ondansetron HCl (Zofran) 4 mg Q6H PRN GT Nausea & Vomiting 02/18/19 05:46 02/23/19 05:45 Pantoprazole (Protonix) 40 mg Q12HR IVP 02/18/19 09:00 03/16/19 23:29 02/18/19 09:08 Bg Moffett MD Feb 18, 2019 16:15
--- NOTE | 2019-02-18 17:00 | NUR ---
NURSE NOTES: TURNED AND REPOSITIONED PATIENT. WILL CONTINUE TO MONITOR.
--- NOTE | 2019-02-18 17:31 | Surgery Progress Note ---
Surgery Progress Note Subjective Additional Comments desaturated and transferred to ICU leukocytosis films noted exam stable Objective Last 24 Hour Vital Signs Date Time Temp Pulse Resp B/P (MAP) Pulse Ox O2 Delivery O2 Flow Rate FiO2 02/18/19 17:00 98.7 72 23 95/41 (59) 98 02/18/19 16:00 71 24 131/50 (77) 100 02/18/19 16:00 8.0 30 02/18/19 16:00 72 02/18/19 16:00 Mechanical Ventilator 02/18/19 15:00 73 23 144/58 (86) 100 02/18/19 14:52 72 18 100 T-Piece 8.0 30 70 18 100 02/18/19 14:00 68 18 100/40 (60) 97 02/18/19 13:00 66 24 109/50 (69) 100 02/18/19 12:04 73 02/18/19 12:03 98.6 76 15 118/46 (70) 99 02/18/19 12:00 Mechanical Ventilator 02/18/19 11:00 75 21 128/50 (76) 98 02/18/19 11:00 70 18 100 T-Piece 8.0 30 68 18 100 02/18/19 10:10 8.0 30 02/18/19 10:00 67 125/66 (85) 100 02/18/19 09:00 76 23 108/79 (89) 100 02/18/19 09:00 56 132/51 02/18/19 08:38 66 18 30 02/18/19 08:00 30 02/18/19 08:00 Mechanical Ventilator 02/18/19 08:00 98.6 81 131/47 (75) 100 02/18/19 08:00 82 02/18/19 07:08 78 22 30 02/18/19 07:00 71 148/55 (86) 100 02/18/19 06:00 76 24 124/52 (76) 99 02/18/19 05:28 80 23 30 02/18/19 05:00 81 25 122/90 (101) 98 02/18/19 04:00 79 02/18/19 04:00 98.6 82 17 114/29 (57) 98 02/18/19 04:00 30 02/18/19 04:00 97 02/18/19 04:00 Mechanical Ventilator 02/18/19 03:26 77 28 98 Mechanical Ventilator 30 77 28 30 02/18/19 03:00 87 15 122/50 (74) 98 02/18/19 02:00 78 29 120/56 (77) 98 02/18/19 01:24 82 28 30 02/18/19 01:00 81 28 108/50 (69) 98 02/18/19 00:00 85 26 109/44 (65) 99 02/18/19 00:00 30 02/18/19 00:00 87 02/18/19 00:00 98.2 87 24 108/50 (69) 98 02/18/19 00:00 Mechanical Ventilator 02/17/19 23:18 89 20 30 02/17/19 23:16 87 18 100 T-Piece 8.0 30 89 18 99 02/17/19 22:30 90 02/17/19 22:30 97.9 75 18 118/60 (79) 98 02/17/19 21:59 97 02/17/19 21:57 89 18 30 02/17/19 21:57 89 18 100 Mechanical Ventilator 02/17/19 21:10 76 130/72 02/17/19 20:58 99 T-Piece 8.0 30 02/17/19 20:00 T-piece 8.0 02/17/19 20:00 8.0 30 02/17/19 20:00 97.9 75 18 130/72 (91) 98 02/17/19 20:00 74 I&O Intake and Output 02/17/19 02/18/19 19:00 07:00 Intake Total 220 ml 1065 ml Output Total 700 ml 680 ml Balance -480 ml 385 ml Free Water 150 ml 280 ml IV Total 400 ml Tube Feeding 70 ml 385 ml Output Urine Total 700 ml 680 ml # Bowel Movements 4 2 Dressing: other Wound: other Drains: other Cardiovascular: RSR Respiratory: decreased breath sounds Abdomen: soft, present bowel sounds, non-distended Extremities: no cyanosis, other Laboratory Tests Test 02/17/19 22:05 02/17/19 22:52 02/18/19 08:40 02/18/19 13:27 Arterial Blood pH 7.393 (7.350-7.450) 7.410 (7.350-7.450) Arterial Blood Partial Pressure CO2 49.9 mmHg (35.0-45.0) H 45.4 mmHg (35.0-45.0) H Arterial Blood Partial Pressure O2 494.6 mmHg (75.0-100.0) H 78.3 mmHg (75.0-100.0) Arterial Blood HCO3 29.7 mmol/L (22.0-26.0) H 28.1 mmol/L (22.0-26.0) H Arterial Blood Oxygen Saturation 99.7 % (95-100) 94.7 % (95-100) L Arterial Blood Base Excess 4.0 (-2-2) H 3.1 (-2-2) H Murphy Test Positive Positive White Blood Count 14.5 K/UL (4.8-10.8) H Red Blood Count 3.71 M/UL (4.20-5.40) L Hemoglobin 10.2 G/DL (12.0-16.0) L Hematocrit 31.1 % (37.0-47.0) L Mean Corpuscular Volume 84 FL (80-99) Mean Corpuscular Hemoglobin 27.4 PG (27.0-31.0) Mean Corpuscular Hemoglobin Concent 32.6 G/DL (32.0-36.0) Red Cell Distribution Width 15.6 % (11.6-14.8) H Platelet Count 409 K/UL (150-450) # Mean Platelet Volume 5.1 FL (6.5-10.1) L Neutrophils (%) (Auto) 66.5 % (45.0-75.0) Lymphocytes (%) (Auto) 26.2 % (20.0-45.0) Monocytes (%) (Auto) 4.0 % (1.0-10.0) Eosinophils (%) (Auto) 2.7 % (0.0-3.0) Basophils (%) (Auto) 0.6 % (0.0-2.0) Sodium Level 138 MMOL/L (136-145) Potassium Level 4.1 MMOL/L (3.5-5.1) Chloride Level 103 MMOL/L (98-107) Carbon Dioxide Level 33 MMOL/L (21-32) H Anion Gap 2 mmol/L (5-15) L Blood Urea Nitrogen 16 mg/dL (7-18) Creatinine 1.3 MG/DL (0.55-1.30) Estimat Glomerular Filtration Rate mL/min (>60) Glucose Level 95 MG/DL (74-106) Calcium Level 8.8 MG/DL (8.5-10.1) Total Bilirubin 0.2 MG/DL (0.2-1.0) Aspartate Amino Transf (AST/SGOT) 24 U/L (15-37) Alanine Aminotransferase (ALT/SGPT) 21 U/L (12-78) Alkaline Phosphatase 194 U/L (46-116) H Total Protein 8.6 G/DL (6.4-8.2) H Albumin 2.5 G/DL (3.4-5.0) L Globulin 6.1 g/dL Albumin/Globulin Ratio 0.4 (1.0-2.7) L Phosphorus Level 4.6 MG/DL (2.5-4.9) Magnesium Level 2.4 MG/DL (1.8-2.4) Plan Problems: (1) Sacral decubitus ulcer Assessment & Plan: This is a 83-year-old female with multiple medical committees that is currently admitted for medical care and management and identified to have multiple wounds requiring care. On admission patient noted to have a resolved sacral decubitus ulcer. Has had prior care and is well-healed at this time. Will ensure it does not open up again. Patient has a right ischial decubitus ulcer that is resolved. Scar intact and well formed. Will monitor to ensure it does not open up again. Patient has a left ischial decubitus ulcer that can be identified to be stage IV with palpable bone that has been resolving as noted by the periwound tissue and scar but open area approximately 1 cm x 1.5 cm few millimeters deep to bone identified. Unsure if this is been to be completely healed prior and has since opened or if has been healing at this level. No foul odor no drainage was unsure local wound care until healed Bilateral heels soft without signs of injury Resolving pressure injury L ischium(L)1.8cm x (W)1cm.Scattered biofilm at base of wound. Edges flat and adherent with surrounding hyperpigmentation. No odor or exudate noted. Sacrum is pale pink with surrounding hyperpigmentation. Hyperpigmentation R ischium with small sheared area centrally.No areas of erythema or exudate noted. Both heels are soft but blanchable. Skin Assessed under collar of trach and no evidence of skin breakdown noted. All wound Tx. are effective and continued as ordered. Pt ahs an APM/Belén mattress overlay and is being repositioned per protocols and per tolerance.No new skin concerns noted. Treatment plan: Please apply skin protectant and optifoam to sacral area. Change every 3 days Please apply skin protectant and optifoam to right ischial area. Change every 3 days Please apply Thera honey infused gauze to small opening in the left ischial wound bed followed by skin protectant in the periwound and up to foam. Change daily as needed saturation Apply Xeroform and dressing over left hand blister. Offload pressure from heels with pillow Air soft mattress Turn every 2 hours Nutritional optimization We will monitor follow with recommendations (2) Sepsis Assessment & Plan: IV abx as per ID trend labs improving wounds unlikely etiology likely respiratory imaging noted and okay abnormal lft's stable PICC on Abx in ICU for desaturation CXR with consolidation Evidence of left lower lobe pneumonia, also previously demonstrated Gastrostomy in good position Mild diastasis of the rectus abdominis musculature again demonstrated Retrosacral decubitus changes, better depicted on prior exam which included the pelvis Small hiatal hernia with evidence of trace gastroesophageal reflux (3) Feeding by G-tube Assessment & Plan: DAILY ESTIMATED NEEDS: Needs based on Pulmonary, wounds, bedbound/ 60kg adj 25-28 kcals/kg 3956-5839 total kcals 1.25-2 g protein/kg 75-120 g total protein 25-30 mL/kg 4209-3552 total fluid mLs NUTRITION DIAGNOSIS: * Swallowing difficulty R/T respiratory status as evidenced by pt on T-collar, now back the vent, PEG dep, TF changed to low rate at this time due to episodes of vomiting + residuals. * Increased kcal/prot needs R/T wound healing as evidenced by BL buttocks and sacral wound photos, refer to reynaldo. (CURRENT TF:Glucerna 1.5 @35ml) ENTERAL NUTRITION RECOMMENDATIONS: VITAL AF 1.2 @ 55ml/hr x 24 hrs to provide 1320ml, 1584kcal, 99g prot, 1060ml free water - Once medically appropriate to resume TF, rec to initiate elemental and carb control formula of Vital 1.2 for possible improved tolerance - Initiate VITAL 1.2 @ 25ml/hr x 6hrs, advance 10ml q 4-6 hrs as tolerated to goal rate - Flush per MD/ HOB over 30 degrees ADDITIONAL RECOMMENDATIONS: 1) Re-calibrated bedscale wt for accurate CBW 2) Wound healing: Add Cristian 1pkt BID w/ improved Tf tolerace + MVI x1 daily 3) Monitor lytes, replete as needed (low Mg, K) 4) Monitor NPO status, ability to resume TF. -> held on and off due to vomiting since 02/02 5) SSI prn resume tube feeds (4) Chronic vegetative state Assessment & Plan: incontinence of urine and stool. can soil dressings. nurses doing great job with monitoring and changing prn (5) Leukocytosis Walter Madera Feb 18, 2019 17:31
--- NOTE | 2019-02-18 19:48 | NUR ---
HAND-OFF: Report given to Carlton Sorenson RN.
[2019-02-18] MEDS: Dyna-Hex 2% Top Sol 2oz TOPIC SCH (20:00)
--- NOTE | 2019-02-18 20:00 | NUR ---
NURSE NOTES: pt leah johnson 6 -[id number] o/o fio2 02 [id number] o/o suction and reposition urinary output good oral care done iv infusing well dressing dry and intact
--- NOTE | 2019-02-18 22:00 | NUR ---
NURSE NOTES: reposition and suction family at bedside
--- NOTE | 2019-02-18 22:42 | General Progress Note ---
Assessment/Plan Status: stable, progressing Assessment/Plan: Assessment - N/V - suspect due to gastroparesis - better today - will hold off on G to J conversion per daughter request - Elevated Alk phos / LFT - CT negative - abd U/S negative - check hepatitis serologies - Anemia with OB (-) stools - Resp failure, s/p Trach - dysphagia, s/p PEG - OBS - poor Px Recommendations - laxative PRN - continue TF - aspiration precautions - elevate HOB - PPI - Elevate HOB Subjective Allergies: Coded Allergies: CODEINE (Verified Allergy, Unknown, HIVES, 09/15/09) Subjective Seen earlier today TF held for CT scan Objective Last 24 Hour Vital Signs Date Time Temp Pulse Resp B/P (MAP) Pulse Ox O2 Delivery O2 Flow Rate FiO2 02/18/19 22:00 81 22 125/63 (83) 98 02/18/19 21:02 88 147/56 02/18/19 21:00 109 47 147/56 (86) 98 02/18/19 20:00 Mechanical Ventilator 02/18/19 20:00 97.8 78 27 126/64 (84) 100 02/18/19 20:00 82 02/18/19 20:00 8.0 30 02/18/19 19:31 79 21 100 T-Piece 8.0 30 02/18/19 19:16 70 22 99 T-Piece 8.0 30 02/18/19 19:15 93 23 99 T-Piece 8.0 30 02/18/19 19:15 99 T-Piece 8.0 30 02/18/19 19:00 73 22 101/37 (58) 93 02/18/19 18:00 71 24 101/33 (55) 100 02/18/19 17:00 98.7 72 23 95/41 (59) 98 02/18/19 16:00 71 24 131/50 (77) 100 02/18/19 16:00 8.0 30 02/18/19 16:00 72 02/18/19 16:00 Mechanical Ventilator 02/18/19 15:00 73 23 144/58 (86) 100 02/18/19 14:52 72 18 100 T-Piece 8.0 30 70 18 100 02/18/19 14:00 68 18 100/40 (60) 97 02/18/19 13:00 66 24 109/50 (69) 100 11/20/19 12:04 73 02/18/19 12:03 98.6 76 15 118/46 (70) 99 02/18/19 12:00 Mechanical Ventilator 02/18/19 11:00 75 21 128/50 (76) 98 02/18/19 11:00 70 18 100 T-Piece 8.0 30 68 18 100 02/18/19 10:10 8.0 30 02/18/19 10:00 67 125/66 (85) 100 02/18/19 09:00 76 23 108/79 (89) 100 02/18/19 09:00 56 132/51 02/18/19 08:38 66 18 30 02/18/19 08:00 30 02/18/19 08:00 Mechanical Ventilator 02/18/19 08:00 98.6 81 131/47 (75) 100 02/18/19 08:00 82 02/18/19 07:08 78 22 30 02/18/19 07:00 71 148/55 (86) 100 02/18/19 06:00 76 24 124/52 (76) 99 02/18/19 05:28 80 23 30 02/18/19 05:00 81 25 122/90 (101) 98 02/18/19 04:00 79 02/18/19 04:00 98.6 82 17 114/29 (57) 98 02/18/19 04:00 30 02/18/19 04:00 97 02/18/19 04:00 Mechanical Ventilator 02/18/19 03:26 77 28 98 Mechanical Ventilator 30 77 28 30 02/18/19 03:00 87 15 122/50 (74) 98 02/18/19 02:00 78 29 120/56 (77) 98 02/18/19 01:24 82 28 30 02/18/19 01:00 81 28 108/50 (69) 98 02/18/19 00:00 85 26 109/44 (65) 99 02/18/19 00:00 30 02/18/19 00:00 87 02/18/19 00:00 98.2 87 24 108/50 (69) 98 02/18/19 00:00 Mechanical Ventilator 02/17/19 23:18 89 20 30 02/17/19 23:16 87 18 100 T-Piece 8.0 30 89 18 99 Intake and Output 11/19/19 11/20/19 18:59 06:59 Intake Total 185 ml 1050 ml Output Total 700 ml 680 ml Balance -515 ml 370 ml Free Water 150 ml 280 ml IV Total 350 ml Tube Feeding 35 ml 420 ml Output Urine Total 700 ml 680 ml # Bowel Movements 4 2 Laboratory Tests 02/17/19 22:52: White Blood Count 14.5H, Red Blood Count 3.71L, Hemoglobin 10.2L, Hematocrit 31.1L, Mean Corpuscular Volume 84, Mean Corpuscular Hemoglobin 27.4, Mean Corpuscular Hemoglobin Concent 32.6, Red Cell Distribution Width 15.6H, Platelet Count 409#, Mean Platelet Volume 5.1L, Neutrophils (%) (Auto) 66.5, Lymphocytes (%) (Auto) 26.2, Monocytes (%) (Auto) 4.0, Eosinophils (%) (Auto) 2.7, Basophils (%) (Auto) 0.6, Sodium Level 138, Potassium Level 4.1, Chloride Level 103, Carbon Dioxide Level 33H, Anion Gap 2L, Blood Urea Nitrogen 16, Creatinine 1.3, Estimat Glomerular Filtration Rate , Glucose Level 95, Calcium Level 8.8, Total Bilirubin 0.2, Aspartate Amino Transf (AST/SGOT) 24, Alanine Aminotransferase (ALT/SGPT) 21, Alkaline Phosphatase 194H, Total Protein 8.6H, Albumin 2.5L, Globulin 6.1, Albumin/Globulin Ratio 0.4L 02/18/19 08:40: Phosphorus Level 4.6, Magnesium Level 2.4 02/18/19 13:27: Arterial Blood pH 7.410, Arterial Blood Partial Pressure CO2 45.4H, Arterial Blood Partial Pressure O2 78.3, Arterial Blood HCO3 28.1H, Arterial Blood Oxygen Saturation 94.7L, Arterial Blood Base Excess 3.1H, Murphy Test Positive Height (Feet): 5 Height (Inches): 5.00 Weight (Pounds): 180 Objective Debilitated AA woman NCAT (+) trach coarse ronchi RR obese abd Celio Vaughan MD Feb 18, 2019 22:42
[2019-02-19] VITALS (24 sets, daily range): BP systolic 96–154; BP diastolic 39–114
--- NOTE | 2019-02-19 | NUR ---
NURSE NOTES: no acute distress noted
[2019-02-19] MEDS: D5NS 1,000 ML IV SCH ×2 (00:50→20:58)
--- NOTE | 2019-02-19 02:00 | NUR ---
NURSE NOTES: orally care done done reposition and suction
[2019-02-19] MEDS: Albuterol/Ipratropium 3ml neb HHN PRN ×6 (03:02→22:25)
--- NOTE | 2019-02-19 04:00 | NUR ---
NURSE NOTES: complete bed bath wound care done reposition and suction
--- NOTE | 2019-02-19 05:45 | Progress Note ---
DATE: 02/18/2019 CARDIOLOGY PROGRESS NOTE SUBJECTIVE: The patient's condition deteriorated. She is in the intensive care unit. She is back on ventilator support. She was increasingly congested with respiratory distress and associated copious secretions. OBJECTIVE: VITAL SIGNS: Blood pressure 124/52, pulse ___, respiratory rate 24. LUNGS: Rales bilaterally, left greater than right. Thick trach secretions. HEART: Regular rhythm and rate. Normal S1 and S2 with no murmur. ABDOMEN: Soft. G-tube intact. EXTREMITIES: 1+ dependent edema. LABORATORY DATA: White count 14.5 and hemoglobin 10.2. Potassium 4.1, BUN 16, creatinine 1.3, magnesium 2.4, and albumin 2.5. IMPRESSION: 1. Respiratory failure. 2. Healthcare-acquired pneumonia. 3. Acute on chronic diastolic congestive heart failure. 4. Severe protein-calorie malnutrition. 5. Advanced dementia. PLAN: 1. Antimicrobials. 2. Respiratory hygiene. 3. Ventilator support. 4. Reassess for diuresis. 5. Trend natriuretic peptide assay. 6. DVT and stress ulcer prophylaxis. 7. Protein supplement by feeding tube. Bg Hagen M.D. DR: GRACE JOB#: [id number] CC:
--- NOTE | 2019-02-19 06:00 | NUR ---
NURSE NOTES: REPOSITION AND SUCTION LEVO DRIP AT 6MCG/MIN
--- NOTE | 2019-02-19 07:00 | NUR ---
HAND-OFF: Report given to STAN PAEZ USING SBAR.
--- NOTE | 2019-02-19 07:15 | NUR ---
RESPIRATORY NOTE: received pt on CA-30% via t-piece. no signs of resp distress when walking into the room. vent is on stand-by, prn. bilateral rhonchi breath sounds upon auscultation. small amounts of thick/frothy secretions when suctioned. pt is trach with shiley 6 XLT with no visible redness or skin wounds. backup trach and ambu bag at bedside. will cont to monitor throughout the day.
--- NOTE | 2019-02-19 07:27 | NUR ---
NURSE NOTES: Report received from Patti PAEZ. Pt sleeping, opens eyes with no tracking. Bilateral upper extremities contracted. Pt SR on gambling monitor. Pt on T piece at 30%. Glucerna GTF running at 35 cc/hr. Purewick noted and intact. JOSY PICC noted and intact. Safety measures in place with bed locked and in lowest position, side rails x3 up and bed alarm on. Will continue to monitor and continue plan of care.
--- NOTE | 2019-02-19 07:49 | General Progress Note ---
Assessment/Plan Problem List: (1) Seizure ICD Codes: R56.9 - Unspecified convulsions SNOMED: 62049629 (2) Anemia ICD Codes: D64.9 - Anemia, unspecified SNOMED: 838577564 Qualifiers: Qualified Codes: D64.9 - Anemia, unspecified (3) Sepsis ICD Codes: A41.9 - Sepsis, unspecified organism SNOMED: 37154616, 683328634 Qualifiers: Qualified Codes: A41.9 - Sepsis, unspecified organism (4) Respiratory failure with hypoxia ICD Codes: J96.91 - Respiratory failure, unspecified with hypoxia SNOMED: 70440341705870067 Qualifiers: Qualified Codes: J96.21 - Acute and chronic respiratory failure with hypoxia (5) HCAP (healthcare-associated pneumonia) ICD Codes: J18.9 - Pneumonia, unspecified organism SNOMED: 065160963, 052108983 (6) Sacral decubitus ulcer ICD Codes: L89.159 - Pressure ulcer of sacral region, unspecified stage SNOMED: 855988174 (7) HTN (hypertension) ICD Codes: I10 - Essential (primary) hypertension SNOMED: 46862167 (8) Chronic vegetative state ICD Codes: R40.3 - Persistent vegetative state SNOMED: 17289834 (9) Chronic respiratory failure ICD Codes: J96.10 - Chronic respiratory failure, unspecified whether with hypoxia or hypercapnia SNOMED: 30193473 (10) Limited mobility ICD Codes: Z74.09 - Other reduced mobility SNOMED: 2993959 Status: stable, progressing Assessment/Plan: vent prn as needed resp rx suctioning as needed gt feeds monitor for vomiting bowel regime monitor residuals cont keppra for szs repeat sputum culture transfuse prn dc planning Subjective ROS Limited/Unobtainable: Yes Constitutional: Reports: malaise, weakness HEENT: Reports: no symptoms Cardiovascular: Reports: no symptoms Respiratory: Reports: cough, shortness of breath, sputum Gastrointestinal/Abdominal: Reports: difficulty swallowing Genitourinary: Reports: no symptoms Neurologic/Psychiatric: Reports: pre-existing deficit Endocrine: Reports: no symptoms Hematologic/Lymphatic: Reports: anemia Allergies: Coded Allergies: CODEINE (Verified Allergy, Unknown, HIVES, 09/15/09) All Systems: reviewed and negative except above Subjective better today. less congested. still having alot of secretions. Objective Last 24 Hour Vital Signs Date Time Temp Pulse Resp B/P (MAP) Pulse Ox O2 Delivery O2 Flow Rate FiO2 02/19/19 07:21 89 20 100 T-Piece 8.0 30 82 22 97 02/19/19 07:14 99 T-Piece 8.0 30 02/19/19 07:11 82 22 98 T-Piece 8.0 30 02/19/19 07:00 79 8 130/47 (74) 99 02/19/19 06:00 78 14 126/45 (72) 98 02/19/19 05:00 83 25 126/55 (78) 99 02/19/19 04:00 82 02/19/19 04:00 8.0 30 02/19/19 04:00 97.8 87 26 117/52 (73) 99 02/19/19 04:00 Mechanical Ventilator 02/19/19 03:12 84 19 100 T-Piece 8.0 30 02/19/19 03:02 80 19 100 T-Piece 8.0 30 02/19/19 03:00 83 43 130/59 (82) 100 02/19/19 02:00 74 18 96/39 (58) 97 02/19/19 01:09 99 T-Piece 8.0 30 02/19/19 01:00 75 24 114/62 (79) 97 02/19/19 01:00 75 24 114/62 (79) 97 02/19/19 00:00 74 02/19/19 00:00 Mechanical Ventilator 02/19/19 00:00 98.0 75 16 99/41 (60) 95 02/19/19 00:00 8.0 30 02/18/19 23:11 81 20 99 T-Piece 8.0 30 02/18/19 23:00 78 12 126/53 (77) 100 02/18/19 22:56 77 17 100 T-Piece 8.0 30 02/18/19 22:00 81 22 125/63 (83) 98 02/18/19 21:02 88 147/56 02/18/19 21:00 109 47 147/56 (86) 98 02/18/19 20:00 Mechanical Ventilator 02/18/19 20:00 97.8 78 27 126/64 (84) 100 02/18/19 20:00 82 02/18/19 20:00 8.0 30 02/18/19 19:31 79 21 100 T-Piece 8.0 30 02/18/19 19:16 70 22 99 T-Piece 8.0 30 02/18/19 19:15 93 23 99 T-Piece 8.0 30 02/18/19 19:15 99 T-Piece 8.0 30 02/18/19 19:00 73 22 101/37 (58) 93 02/18/19 18:00 71 24 101/33 (55) 100 02/18/19 17:00 98.7 72 23 95/41 (59) 98 02/18/19 16:00 71 24 131/50 (77) 100 02/18/19 16:00 8.0 30 02/18/19 16:00 72 02/18/19 16:00 Mechanical Ventilator 02/18/19 15:00 73 23 144/58 (86) 100 02/18/19 14:52 72 18 100 T-Piece 8.0 30 70 18 100 02/18/19 14:00 68 18 100/40 (60) 97 02/18/19 13:00 66 24 109/50 (69) 100 02/18/19 12:04 73 02/18/19 12:03 98.6 76 15 118/46 (70) 99 02/18/19 12:00 Mechanical Ventilator 02/18/19 11:00 75 21 128/50 (76) 98 02/18/19 11:00 70 18 100 T-Piece 8.0 30 68 18 100 02/18/19 10:10 8.0 30 02/18/19 10:00 67 125/66 (85) 100 02/18/19 09:00 76 23 108/79 (89) 100 02/18/19 09:00 56 132/51 02/18/19 08:38 66 18 30 02/18/19 08:00 30 02/18/19 08:00 Mechanical Ventilator 02/18/19 08:00 98.6 81 131/47 (75) 100 02/18/19 08:00 82 Intake and Output 02/18/19 02/19/19 19:00 07:00 Intake Total 925 ml 1020 ml Output Total 250 ml 550 ml Balance 675 ml 470 ml Free Water 80 ml IV Total 600 ml 600 ml Tube Feeding 245 ml 420 ml Output Urine Total 250 ml 550 ml Laboratory Tests 02/18/19 08:40: Phosphorus Level 4.6, Magnesium Level 2.4 02/18/19 13:27: Arterial Blood pH 7.410, Arterial Blood Partial Pressure CO2 45.4H, Arterial Blood Partial Pressure O2 78.3, Arterial Blood HCO3 28.1H, Arterial Blood Oxygen Saturation 94.7L, Arterial Blood Base Excess 3.1H, Murphy Test Positive Height (Feet): 5 Height (Inches): 5.00 Weight (Pounds): 180 Objective General Appearance: WD/WN, confused Neck: supple Cardiovascular: normal rate, regular rhythm Respiratory/Chest: chest wall non-tender, rhonchi - bilaterally(minimal) Abdomen: normal bowel sounds, non tender, soft, no organomegaly Edema: no edema noted Arm (L), no edema noted Arm (R), no edema noted Leg (L), no edema noted Leg (R), no edema noted Pedal (L), no edema noted Pedal (R), no edema noted Generalized Neurologic: disoriented, unresponsive, aphasia Irvin Beltrán MD Feb 19, 2019 07:49
[2019-02-19] MEDS: levETIRAcetam 500mg/5ml Liquid GT SCH ×2 (08:17→20:55)
[2019-02-19] MEDS: Pantoprazole Inj IVP SCH ×2 (08:18→20:56)
[2019-02-19] MEDS: Ascorbic Acid 500mg tab GT SCH (08:18)
[2019-02-19] MEDS: Heparin 5000 units/ml inj SUBQ SCH ×2 (08:19→20:57)
--- NOTE | 2019-02-19 08:26 | Pulmonology Progress Note ---
Assessment/Plan Assessment/Plan Impression: Sepsis syndrome Pneumonia VDRF, Trach, G tube, Hypertension, Cardiac disease, Dementia, Previous CVA, Seizure disorder, Respiratory failure with hypoxia Anemia Sacral ulcer renal cyst pulmonary congestion Plan respiratory care noted mucomyst and duoneb SNF meds as is still needs respiratory support full vent support as needed Oxygen as needed Monitor labs for change changes noted Patient is a DNR. No CPR. ICU care reviewed medications/laboratory data/nursing notes/ICU care reviewed in detail note reviewed and edited care discussed with RN and RT ICU time spent 40 minutes Subjective ROS Limited/Unobtainable: Yes Allergies: Coded Allergies: CODEINE (Verified Allergy, Unknown, HIVES, 09/15/09) Subjective respiratory care noted congestion- persistent and worsened ICU care reviewed supportive care noted and reviewed RT care reviewed overnight care noted placement pending Objective Last 24 Hour Vital Signs Date Time Temp Pulse Resp B/P (MAP) Pulse Ox O2 Delivery O2 Flow Rate FiO2 02/19/19 08:17 89 130/47 02/19/19 07:21 89 20 100 T-Piece 8.0 30 82 22 97 02/19/19 07:14 99 T-Piece 8.0 30 02/19/19 07:11 82 22 98 T-Piece 8.0 30 02/19/19 07:00 79 8 130/47 (74) 99 02/19/19 06:00 78 14 126/45 (72) 98 02/19/19 05:00 83 25 126/55 (78) 99 02/19/19 04:00 82 02/19/19 04:00 8.0 30 02/19/19 04:00 97.8 87 26 117/52 (73) 99 02/19/19 04:00 Mechanical Ventilator 02/19/19 03:12 84 19 100 T-Piece 8.0 30 02/19/19 03:02 80 19 100 T-Piece 8.0 30 02/19/19 03:00 83 43 130/59 (82) 100 02/19/19 02:00 74 18 96/39 (58) 97 02/19/19 01:09 99 T-Piece 8.0 30 02/19/19 01:00 75 24 114/62 (79) 97 02/19/19 01:00 75 24 114/62 (79) 97 02/19/19 00:00 74 02/19/19 00:00 Mechanical Ventilator 02/19/19 00:00 98.0 75 16 99/41 (60) 95 02/19/19 00:00 8.0 30 02/18/19 23:11 81 20 99 T-Piece 8.0 30 02/18/19 23:00 78 12 126/53 (77) 100 02/18/19 22:56 77 17 100 T-Piece 8.0 30 02/18/19 22:00 81 22 125/63 (83) 98 02/18/19 21:02 88 147/56 02/18/19 21:00 109 47 147/56 (86) 98 02/18/19 20:00 Mechanical Ventilator 02/18/19 20:00 97.8 78 27 126/64 (84) 100 02/18/19 20:00 82 02/18/19 20:00 8.0 30 02/18/19 19:31 79 21 100 T-Piece 8.0 30 02/18/19 19:16 70 22 99 T-Piece 8.0 30 02/18/19 19:15 93 23 99 T-Piece 8.0 30 02/18/19 19:15 99 T-Piece 8.0 30 02/18/19 19:00 73 22 101/37 (58) 93 02/18/19 18:00 71 24 101/33 (55) 100 02/18/19 17:00 98.7 72 23 95/41 (59) 98 02/18/19 16:00 71 24 131/50 (77) 100 02/18/19 16:00 8.0 30 02/18/19 16:00 72 02/18/19 16:00 Mechanical Ventilator 02/18/19 15:00 73 23 144/58 (86) 100 02/18/19 14:52 72 18 100 T-Piece 8.0 30 70 18 100 02/18/19 14:00 68 18 100/40 (60) 97 02/18/19 13:00 66 24 109/50 (69) 100 02/18/19 12:04 73 02/18/19 12:03 98.6 76 15 118/46 (70) 99 02/18/19 12:00 Mechanical Ventilator 02/18/19 11:00 75 21 128/50 (76) 98 02/18/19 11:00 70 18 100 T-Piece 8.0 30 68 18 100 02/18/19 10:10 8.0 30 02/18/19 10:00 67 125/66 (85) 100 02/18/19 09:00 76 23 108/79 (89) 100 02/18/19 09:00 56 132/51 02/18/19 08:38 66 18 30 Intake and Output 02/18/19 02/19/19 19:00 07:00 Intake Total 925 ml 1020 ml Output Total 250 ml 550 ml Balance 675 ml 470 ml Free Water 80 ml IV Total 600 ml 600 ml Tube Feeding 245 ml 420 ml Output Urine Total 250 ml 550 ml Objective WDWN NAD contracted on vent reduced breath sounds bilaterally with noted rhonchi overall [id number] without MRG NABS nontender no HSM no CC minimal nonfocal nonverbal trach and gt reviewed and edited Microbiology Date/Time Source Procedure Growth Status 02/17/19 11:30 Sputum Gram Stain - Final Resulted 02/17/19 11:30 Sputum Sputum Culture Pending Resulted 02/16/19 13:35 Stool Clostridium difficile Toxin Assay - Final Complete Laboratory Tests 02/18/19 08:40: Phosphorus Level 4.6, Magnesium Level 2.4 02/18/19 13:27: Arterial Blood pH 7.410, Arterial Blood Partial Pressure CO2 45.4H, Arterial Blood Partial Pressure O2 78.3, Arterial Blood HCO3 28.1H, Arterial Blood Oxygen Saturation 94.7L, Arterial Blood Base Excess 3.1H, Murphy Test Positive Current Medications Medications (Trade) Dose Ordered Sig/Maicol Route PRN Reason Start Time Stop Time Status Last Admin Dose Admin Acetaminophen (Tylenol) 650 mg Q4H PRN GT Mild Pain/Temp > 100.5 02/18/19 05:44 03/05/19 05:43 Acetylcysteine (Mucomyst) 100 mg Q4HRT HHN 02/18/19 07:00 03/03/19 12:59 02/19/19 07:10 Albuterol/ Ipratropium (Albuterol/ Ipratropium) 3 ml Q4H PRN HHN Shortness of Breath 02/18/19 05:45 02/22/19 05:44 02/19/19 07:10 Ascorbic Acid (Vitamin C) 250 mg DAILY GT 02/18/19 09:00 02/24/19 08:59 02/19/19 08:18 Atropine Sulfate (Atropine Opth Adriana) 1 drop TID SL 02/18/19 09:00 03/12/19 09:29 02/18/19 18:24 Bisacodyl (Dulcolax) 10 mg PRN PRN RECTAL Constipation 02/18/19 05:30 02/23/19 05:29 Chlorhexidine Gluconate (Cesilia-Hex 2%) 1 applic DAILY@2000 TOPIC 02/18/19 20:00 03/12/19 19:59 02/18/19 20:00 Dextrose/Sodium Chloride 1,000 ml @ 50 mls/hr Q20H IV 02/18/19 06:00 03/19/19 05:59 02/19/19 00:50 Heparin Sodium (Porcine) (Heparin 5000 units/ml) 5,000 units EVERY 12 HOURS SUBQ 02/18/19 09:00 03/16/19 23:14 02/19/19 08:19 Hydralazine HCl (Apresoline) 25 mg Q4H PRN GT SBP above 160 02/18/19 05:46 03/09/19 05:45 Levetiracetam (Keppra) 750 mg Q12HR GT 02/18/19 09:00 03/16/19 23:29 02/19/19 08:17 Metoclopramide HCl (Reglan) 10 mg Q6H PRN IVP Nausea & Vomiting 02/18/19 05:46 03/09/19 05:45 Metoprolol Tartrate (Lopressor) 25 mg Q12HR GT 02/18/19 09:00 03/16/19 23:29 02/19/19 08:17 Ondansetron HCl (Zofran) 4 mg Q6H PRN GT Nausea & Vomiting 02/18/19 05:46 02/23/19 05:45 Pantoprazole (Protonix) 40 mg Q12HR IVP 02/18/19 09:00 03/16/19 23:29 02/19/19 08:18 Amaury Chan MD Feb 19, 2019 08:26
[2019-02-19 09:03] LABS: BASOPHILS % (AUTO) 0.8 % (0.0-2.0); HEMATOCRIT 25.7 % (37.0-47.0); HEMOGLOBIN 8.1 G/DL (12.0-16.0); LYMPHOCYTES % (AUTO) 27.8 % (20.0-45.0); MEAN CORPUSCULAR VOLUME 86 FL (80-99); MONOCYTES % (AUTO) 5.1 % (1.0-10.0); NEUTROPHILS % (AUTO) 63.3 % (45.0-75.0); PLATELET COUNT 320 K/UL (150-450); RED BLOOD COUNT 2.97 M/UL (4.20-5.40); RED CELL DISTRIBUTION WIDTH 16.3 % (11.6-14.8); WHITE BLOOD COUNT 9.5 K/UL (4.8-10.8)
[2019-02-19 09:12] LABS: ANION GAP 0 mmol/L (5-15); BLOOD UREA NITROGEN 14 mg/dL (7-18); CALCIUM 7.4 MG/DL (8.5-10.1); CARBON DIOXIDE 33 MMOL/L (21-32); CHLORIDE 111 MMOL/L (98-107); CREATININE 1.2 MG/DL (0.55-1.30); POTASSIUM 3.5 MMOL/L (3.5-5.1); SODIUM 144 MMOL/L (136-145)
[2019-02-19 09:17] LABS: ALANINE AMINOTRANSFERASE 15 U/L (12-78); ALBUMIN 1.9 G/DL (3.4-5.0); ALBUMIN/GLOBULIN RATIO 0.4 (1.0-2.7); ALKALINE PHOSPHATASE 147 U/L (46-116); ASPARTATE AMINO TRANSFERASE 17 U/L (15-37); BILIRUBIN,TOTAL 0.1 MG/DL (0.2-1.0)
--- NOTE | 2019-02-19 09:31 | NUR ---
NURSE NOTES: Dr Vaughan here to see pt, no new orders. Pt suctioned, oral care done. VSS. Will continue to monitor.
--- NOTE | 2019-02-19 10:55 | Infectious Diseases Prog Note ---
Assessment/Plan Assessment/Plan A 1. Acinetobacter, pseudomonas & Klebsiella pneumonia treated 2. respiratory failure 3. hypertension 4. CVA 5. dementia 6. sacral decubitus ulcer 7. rectal VRE colonization 8. Anemia 9. Proteus UTI 10. Acute renal failure 11. Leukocytosis P 1. Observe off antibiotic 2. Frequent suctioning Subjective ROS Limited/Unobtainable: Yes Constitutional: Denies: fever Respiratory: Reports: other - off of ventilator Allergies: Coded Allergies: CODEINE (Verified Allergy, Unknown, HIVES, 09/15/09) Objective Vital Signs Last 24 Hour Vital Signs Date Time Temp Pulse Resp B/P (MAP) Pulse Ox O2 Delivery O2 Flow Rate FiO2 02/19/19 10:48 84 20 100 T-Piece 8.0 30 77 20 100 02/19/19 10:00 75 6 121/45 (70) 100 02/19/19 09:00 77 19 128/47 (74) 100 02/19/19 08:17 89 130/47 02/19/19 08:00 Mechanical Ventilator 02/19/19 08:00 8.0 30 02/19/19 08:00 98.5 90 5 131/52 (78) 99 02/19/19 08:00 80 02/19/19 07:21 89 20 100 T-Piece 8.0 30 82 22 97 02/19/19 07:14 99 T-Piece 8.0 30 02/19/19 07:11 82 22 98 T-Piece 8.0 30 02/19/19 07:00 79 8 130/47 (74) 99 02/19/19 06:00 78 14 126/45 (72) 98 02/19/19 05:00 83 25 126/55 (78) 99 02/19/19 04:00 82 02/19/19 04:00 8.0 30 02/19/19 04:00 97.8 87 26 117/52 (73) 99 02/19/19 04:00 Mechanical Ventilator 02/19/19 03:12 84 19 100 T-Piece 8.0 30 02/19/19 03:02 80 19 100 T-Piece 8.0 30 02/19/19 03:00 83 43 130/59 (82) 100 02/19/19 02:00 74 18 96/39 (58) 97 02/19/19 01:09 99 T-Piece 8.0 30 02/19/19 01:00 75 24 114/62 (79) 97 02/19/19 01:00 75 24 114/62 (79) 97 02/19/19 00:00 74 02/19/19 00:00 Mechanical Ventilator 02/19/19 00:00 98.0 75 16 99/41 (60) 95 02/19/19 00:00 8.0 30 02/18/19 23:11 81 20 99 T-Piece 8.0 30 02/18/19 23:00 78 12 126/53 (77) 100 02/18/19 22:56 77 17 100 T-Piece 8.0 30 02/18/19 22:00 81 22 125/63 (83) 98 02/18/19 21:02 88 147/56 02/18/19 21:00 109 47 147/56 (86) 98 02/18/19 20:00 Mechanical Ventilator 02/18/19 20:00 97.8 78 27 126/64 (84) 100 02/18/19 20:00 82 02/18/19 20:00 8.0 30 02/18/19 19:31 79 21 100 T-Piece 8.0 30 02/18/19 19:16 70 22 99 T-Piece 8.0 30 02/18/19 19:15 93 23 99 T-Piece 8.0 30 02/18/19 19:15 99 T-Piece 8.0 30 02/18/19 19:00 73 22 101/37 (58) 93 02/18/19 18:00 71 24 101/33 (55) 100 02/18/19 17:00 98.7 72 23 95/41 (59) 98 02/18/19 16:00 71 24 131/50 (77) 100 02/18/19 16:00 8.0 30 02/18/19 16:00 72 02/18/19 16:00 Mechanical Ventilator 02/18/19 15:00 73 23 144/58 (86) 100 02/18/19 14:52 72 18 100 T-Piece 8.0 30 70 18 100 02/18/19 14:00 68 18 100/40 (60) 97 02/18/19 13:00 66 24 109/50 (69) 100 02/18/19 12:04 73 11/20/19 12:03 98.6 76 15 118/46 (70) 99 02/18/19 12:00 Mechanical Ventilator 02/18/19 11:00 75 21 128/50 (76) 98 02/18/19 11:00 70 18 100 T-Piece 8.0 30 68 18 100 Height (Feet): 5 Height (Inches): 5.00 Weight (Pounds): 180 HEENT: status post trach Respiratory/Chest: lungs clear, other - on T bar Cardiovascular: normal rate, other - R arm PICC line Abdomen: soft, non tender, other - GT feeding Extremities: no edema Skin: ulcers Neurologic/Psychiatric: aphasia Microbiology Date/Time Source Procedure Growth Status 02/17/19 11:30 Sputum Gram Stain - Final Resulted 02/17/19 11:30 Sputum Culture - Preliminary Gram Negative Bacillus 1 Gram Negative Bacillus 2 Resulted 02/16/19 13:35 Stool Clostridium difficile Toxin Assay - Final Complete Laboratory Tests Test 02/18/19 13:27 02/19/19 08:25 Arterial Blood pH 7.410 (7.350-7.450) Arterial Blood Partial Pressure CO2 45.4 mmHg (35.0-45.0) H Arterial Blood Partial Pressure O2 78.3 mmHg (75.0-100.0) Arterial Blood HCO3 28.1 mmol/L (22.0-26.0) H Arterial Blood Oxygen Saturation 94.7 % (95-100) L Arterial Blood Base Excess 3.1 (-2-2) H Murphy Test Positive White Blood Count 9.5 K/UL (4.8-10.8) Red Blood Count 2.97 M/UL (4.20-5.40) L Hemoglobin 8.1 G/DL (12.0-16.0) L Hematocrit 25.7 % (37.0-47.0) L Mean Corpuscular Volume 86 FL (80-99) Mean Corpuscular Hemoglobin 27.1 PG (27.0-31.0) Mean Corpuscular Hemoglobin Concent 31.4 G/DL (32.0-36.0) L Red Cell Distribution Width 16.3 % (11.6-14.8) H Platelet Count 320 K/UL (150-450) Mean Platelet Volume 6.1 FL (6.5-10.1) L Neutrophils (%) (Auto) 63.3 % (45.0-75.0) Lymphocytes (%) (Auto) 27.8 % (20.0-45.0) Monocytes (%) (Auto) 5.1 % (1.0-10.0) Eosinophils (%) (Auto) 3.0 % (0.0-3.0) Basophils (%) (Auto) 0.8 % (0.0-2.0) Sodium Level 144 MMOL/L (136-145) Potassium Level 3.5 MMOL/L (3.5-5.1) Chloride Level 111 MMOL/L (98-107) H Carbon Dioxide Level 33 MMOL/L (21-32) H Anion Gap 0 mmol/L (5-15) L Blood Urea Nitrogen 14 mg/dL (7-18) Creatinine 1.2 MG/DL (0.55-1.30) Estimat Glomerular Filtration Rate mL/min (>60) Glucose Level 411 MG/DL (74-106) #H Calcium Level 7.4 MG/DL (8.5-10.1) L Phosphorus Level 3.0 MG/DL (2.5-4.9) Magnesium Level 1.8 MG/DL (1.8-2.4) Total Bilirubin 0.1 MG/DL (0.2-1.0) L Aspartate Amino Transf (AST/SGOT) 17 U/L (15-37) Alanine Aminotransferase (ALT/SGPT) 15 U/L (12-78) Alkaline Phosphatase 147 U/L (46-116) H Total Protein 6.8 G/DL (6.4-8.2) Albumin 1.9 G/DL (3.4-5.0) L Globulin 4.9 g/dL Albumin/Globulin Ratio 0.4 (1.0-2.7) L Current Medications Medications (Trade) Dose Ordered Sig/Maicol Route PRN Reason Start Time Stop Time Status Last Admin Dose Admin Acetaminophen (Tylenol) 650 mg Q4H PRN GT Mild Pain/Temp > 100.5 02/18/19 05:44 03/05/19 05:43 Acetylcysteine (Mucomyst) 100 mg Q4HRT HHN 02/18/19 07:00 03/03/19 12:59 02/19/19 10:44 Albuterol/ Ipratropium (Albuterol/ Ipratropium) 3 ml Q4H PRN HHN Shortness of Breath 02/18/19 05:45 02/22/19 05:44 02/19/19 10:45 Ascorbic Acid (Vitamin C) 250 mg DAILY GT 02/18/19 09:00 02/24/19 08:59 02/19/19 08:18 Atropine Sulfate (Atropine Opth Adriana) 1 drop TID SL 02/18/19 09:00 03/12/19 09:29 02/19/19 09:43 Bisacodyl (Dulcolax) 10 mg PRN PRN RECTAL Constipation 02/18/19 05:30 02/23/19 05:29 Chlorhexidine Gluconate (Cesilia-Hex 2%) 1 applic DAILY@2000 TOPIC 02/18/19 20:00 03/12/19 19:59 02/18/19 20:00 Dextrose/Sodium Chloride 1,000 ml @ 50 mls/hr Q20H IV 02/18/19 06:00 03/19/19 05:59 02/19/19 00:50 Heparin Sodium (Porcine) (Heparin 5000 units/ml) 5,000 units EVERY 12 HOURS SUBQ 02/18/19 09:00 03/16/19 23:14 02/19/19 08:19 Hydralazine HCl (Apresoline) 25 mg Q4H PRN GT SBP above 160 02/18/19 05:46 03/09/19 05:45 Levetiracetam (Keppra) 750 mg Q12HR GT 02/18/19 09:00 03/16/19 23:29 02/19/19 08:17 Metoclopramide HCl (Reglan) 10 mg Q6H PRN IVP Nausea & Vomiting 02/18/19 05:46 03/09/19 05:45 Metoprolol Tartrate (Lopressor) 25 mg Q12HR GT 02/18/19 09:00 03/16/19 23:29 02/19/19 08:17 Ondansetron HCl (Zofran) 4 mg Q6H PRN GT Nausea & Vomiting 02/18/19 05:46 02/23/19 05:45 Pantoprazole (Protonix) 40 mg Q12HR IVP 02/18/19 09:00 03/16/19 23:29 02/19/19 08:18 Chauncey Liriano MD Feb 19, 2019 10:55
--- NOTE | 2019-02-19 11:37 | General Progress Note ---
Assessment/Plan Status: stable, progressing Assessment/Plan: Assessment - N/V - suspect due to gastroparesis - better today - will hold off on G to J conversion per daughter request - Elevated Alk phos / LFT - CT negative - abd U/S negative - check hepatitis serologies - negative - Anemia with OB (-) stools - Resp failure, s/p Trach - dysphagia, s/p PEG - OBS - poor Px Recommendations - laxative PRN - continue TF - aspiration precautions - elevate HOB - PPI - Elevate HOB Subjective Allergies: Coded Allergies: CODEINE (Verified Allergy, Unknown, HIVES, 09/15/09) Subjective Seen earlier today in ICU d/w RN tolerating TF no vomiting Objective Last 24 Hour Vital Signs Date Time Temp Pulse Resp B/P (MAP) Pulse Ox O2 Delivery O2 Flow Rate FiO2 02/19/19 10:48 84 20 100 T-Piece 8.0 30 77 20 100 02/19/19 10:00 75 6 121/45 (70) 100 02/19/19 09:00 77 19 128/47 (74) 100 02/19/19 08:17 89 130/47 02/19/19 08:00 Mechanical Ventilator 02/19/19 08:00 8.0 30 02/19/19 08:00 98.5 90 5 131/52 (78) 99 02/19/19 08:00 80 02/19/19 07:21 89 20 100 T-Piece 8.0 30 82 22 97 02/19/19 07:14 99 T-Piece 8.0 30 02/19/19 07:11 82 22 98 T-Piece 8.0 30 02/19/19 07:00 79 8 130/47 (74) 99 02/19/19 06:00 78 14 126/45 (72) 98 02/19/19 05:00 83 25 126/55 (78) 99 02/19/19 04:00 82 02/19/19 04:00 8.0 30 02/19/19 04:00 97.8 87 26 117/52 (73) 99 02/19/19 04:00 Mechanical Ventilator 02/19/19 03:12 84 19 100 T-Piece 8.0 30 02/19/19 03:02 80 19 100 T-Piece 8.0 30 02/19/19 03:00 83 43 130/59 (82) 100 02/19/19 02:00 74 18 96/39 (58) 97 02/19/19 01:09 99 T-Piece 8.0 30 02/19/19 01:00 75 24 114/62 (79) 97 02/19/19 01:00 75 24 114/62 (79) 97 02/19/19 00:00 74 02/19/19 00:00 Mechanical Ventilator 02/19/19 00:00 98.0 75 16 99/41 (60) 95 02/19/19 00:00 8.0 30 02/18/19 23:11 81 20 99 T-Piece 8.0 30 02/18/19 23:00 78 12 126/53 (77) 100 02/18/19 22:56 77 17 100 T-Piece 8.0 30 02/18/19 22:00 81 22 125/63 (83) 98 02/18/19 21:02 88 147/56 02/18/19 21:00 109 47 147/56 (86) 98 02/18/19 20:00 Mechanical Ventilator 02/18/19 20:00 97.8 78 27 126/64 (84) 100 02/18/19 20:00 82 02/18/19 20:00 8.0 30 02/18/19 19:31 79 21 100 T-Piece 8.0 30 02/18/19 19:16 70 22 99 T-Piece 8.0 30 02/18/19 19:15 93 23 99 T-Piece 8.0 30 02/18/19 19:15 99 T-Piece 8.0 30 02/18/19 19:00 73 22 101/37 (58) 93 02/18/19 18:00 71 24 101/33 (55) 100 02/18/19 17:00 98.7 72 23 95/41 (59) 98 02/18/19 16:00 71 24 131/50 (77) 100 02/18/19 16:00 8.0 30 02/18/19 16:00 72 02/18/19 16:00 Mechanical Ventilator 02/18/19 15:00 73 23 144/58 (86) 100 02/18/19 14:52 72 18 100 T-Piece 8.0 30 70 18 100 02/18/19 14:00 68 18 100/40 (60) 97 02/18/19 13:00 66 24 109/50 (69) 100 02/18/19 12:04 73 02/18/19 12:03 98.6 76 15 118/46 (70) 99 02/18/19 12:00 Mechanical Ventilator Intake and Output 02/18/19 02/19/19 19:00 07:00 Intake Total 925 ml 1020 ml Output Total 250 ml 550 ml Balance 675 ml 470 ml Free Water 80 ml IV Total 600 ml 600 ml Tube Feeding 245 ml 420 ml Output Urine Total 250 ml 550 ml Laboratory Tests 02/18/19 13:27: Arterial Blood pH 7.410, Arterial Blood Partial Pressure CO2 45.4H, Arterial Blood Partial Pressure O2 78.3, Arterial Blood HCO3 28.1H, Arterial Blood Oxygen Saturation 94.7L, Arterial Blood Base Excess 3.1H, Murphy Test Positive 02/19/19 08:25: White Blood Count 9.5, Red Blood Count 2.97L, Hemoglobin 8.1L, Hematocrit 25.7L , Mean Corpuscular Volume 86, Mean Corpuscular Hemoglobin 27.1, Mean Corpuscular Hemoglobin Concent 31.4L, Red Cell Distribution Width 16.3H, Platelet Count 320, Mean Platelet Volume 6.1L, Neutrophils (%) (Auto) 63.3, Lymphocytes (%) (Auto) 27.8, Monocytes (%) (Auto) 5.1, Eosinophils (%) (Auto) 3.0, Basophils (%) (Auto) 0.8, Sodium Level 144, Potassium Level 3.5, Chloride Level 111H, Carbon Dioxide Level 33H, Anion Gap 0L, Blood Urea Nitrogen 14, Creatinine 1.2, Estimat Glomerular Filtration Rate , Glucose Level 411#H, Calcium Level 7.4L, Phosphorus Level 3.0, Magnesium Level 1.8, Total Bilirubin 0.1L, Aspartate Amino Transf (AST/SGOT) 17, Alanine Aminotransferase (ALT/SGPT) 15, Alkaline Phosphatase 147H, Total Protein 6.8, Albumin 1.9L, Globulin 4.9, Albumin/Globulin Ratio 0.4L Height (Feet): 5 Height (Inches): 5.00 Weight (Pounds): 180 Objective Debilitated AA woman NCAT (+) trach coarse ronchi RR obese abd, (+) GT no edema Celio Vaughan MD Feb 19, 2019 11:37
--- NOTE | 2019-02-19 11:38 | NUR ---
NURSE NOTES: Pt turned and repositioned. Pt suctioned. Will continue to monitor.
--- NOTE | 2019-02-19 13:23 | NUR ---
NURSE NOTES: Pt resting comfortably. No acute distress. Will continue to monitor.
--- NOTE | 2019-02-19 14:43 | Nephrology Progress Note ---
Assessment/Plan Problem List: (1) Acute renal failure (ARF) Assessment: Cr stable (2) Chronic respiratory failure (3) Anemia (4) Sepsis Assessment Acute renal failure Respiratory failure - Trach Low Mag- Low k , Low Na Anemia UTI / Sepsis Proteinuria / HypoAlbuminemia high Trigs Sz decubs bed bound DNR Plan K and Mag and Phos supplement as needed Hydrate Urine studies avoid Nephrotoxics mag K Phos supplements as needed monitor renal parameters Subjective ROS Limited/Unobtainable: Yes Objective Objective Last 24 Hour Vital Signs Date Time Temp Pulse Resp B/P (MAP) Pulse Ox O2 Delivery O2 Flow Rate FiO2 02/19/19 14:00 76 4 135/55 (81) 99 02/19/19 13:00 78 0 140/57 (84) 100 02/19/19 12:34 100 T-Piece 8.0 30 02/19/19 12:00 83 02/19/19 12:00 Mechanical Ventilator 02/19/19 12:00 98.7 75 0 112/41 (64) 99 02/19/19 12:00 8.0 30 02/19/19 11:00 87 21 130/54 (79) 100 02/19/19 10:48 84 20 100 T-Piece 8.0 30 77 20 100 02/19/19 10:00 75 6 121/45 (70) 100 02/19/19 09:00 77 19 128/47 (74) 100 02/19/19 08:17 89 130/47 02/19/19 08:00 Mechanical Ventilator 02/19/19 08:00 8.0 30 02/19/19 08:00 98.5 90 5 131/52 (78) 99 02/19/19 08:00 80 02/19/19 07:21 89 20 100 T-Piece 8.0 30 82 22 97 02/19/19 07:14 99 T-Piece 8.0 30 02/19/19 07:11 82 22 98 T-Piece 8.0 30 02/19/19 07:00 79 8 130/47 (74) 99 02/19/19 06:00 78 14 126/45 (72) 98 02/19/19 05:00 83 25 126/55 (78) 99 02/19/19 04:00 82 02/19/19 04:00 8.0 30 02/19/19 04:00 97.8 87 26 117/52 (73) 99 02/19/19 04:00 Mechanical Ventilator 02/19/19 03:12 84 19 100 T-Piece 8.0 30 02/19/19 03:02 80 19 100 T-Piece 8.0 30 02/19/19 03:00 83 43 130/59 (82) 100 02/19/19 02:00 74 18 96/39 (58) 97 02/19/19 01:09 99 T-Piece 8.0 30 02/19/19 01:00 75 24 114/62 (79) 97 02/19/19 01:00 75 24 114/62 (79) 97 02/19/19 00:00 74 02/19/19 00:00 Mechanical Ventilator 02/19/19 00:00 98.0 75 16 99/41 (60) 95 02/19/19 00:00 8.0 30 02/18/19 23:11 81 20 99 T-Piece 8.0 30 02/18/19 23:00 78 12 126/53 (77) 100 02/18/19 22:56 77 17 100 T-Piece 8.0 30 02/18/19 22:00 81 22 125/63 (83) 98 02/18/19 21:02 88 147/56 02/18/19 21:00 109 47 147/56 (86) 98 02/18/19 20:00 Mechanical Ventilator 02/18/19 20:00 97.8 78 27 126/64 (84) 100 02/18/19 20:00 82 02/18/19 20:00 8.0 30 02/18/19 19:31 79 21 100 T-Piece 8.0 30 02/18/19 19:16 70 22 99 T-Piece 8.0 30 02/18/19 19:15 93 23 99 T-Piece 8.0 30 02/18/19 19:15 99 T-Piece 8.0 30 02/18/19 19:00 73 22 101/37 (58) 93 02/18/19 18:00 71 24 101/33 (55) 100 02/18/19 17:00 98.7 72 23 95/41 (59) 98 02/18/19 16:00 71 24 131/50 (77) 100 02/18/19 16:00 8.0 30 02/18/19 16:00 72 11/20/19 16:00 Mechanical Ventilator 02/18/19 15:00 73 23 144/58 (86) 100 02/18/19 14:52 72 18 100 T-Piece 8.0 30 70 18 100 Intake and Output 02/18/19 02/19/19 19:00 07:00 Intake Total 925 ml 1020 ml Output Total 250 ml 550 ml Balance 675 ml 470 ml Free Water 80 ml IV Total 600 ml 600 ml Tube Feeding 245 ml 420 ml Output Urine Total 250 ml 550 ml Laboratory Tests 02/19/19 08:25: White Blood Count 9.5, Red Blood Count 2.97L, Hemoglobin 8.1L, Hematocrit 25.7L , Mean Corpuscular Volume 86, Mean Corpuscular Hemoglobin 27.1, Mean Corpuscular Hemoglobin Concent 31.4L, Red Cell Distribution Width 16.3H, Platelet Count 320, Mean Platelet Volume 6.1L, Neutrophils (%) (Auto) 63.3, Lymphocytes (%) (Auto) 27.8, Monocytes (%) (Auto) 5.1, Eosinophils (%) (Auto) 3.0, Basophils (%) (Auto) 0.8, Sodium Level 144, Potassium Level 3.5, Chloride Level 111H, Carbon Dioxide Level 33H, Anion Gap 0L, Blood Urea Nitrogen 14, Creatinine 1.2, Estimat Glomerular Filtration Rate , Glucose Level 411#H, Calcium Level 7.4L, Phosphorus Level 3.0, Magnesium Level 1.8, Total Bilirubin 0.1L, Aspartate Amino Transf (AST/SGOT) 17, Alanine Aminotransferase (ALT/SGPT) 15, Alkaline Phosphatase 147H, Total Protein 6.8, Albumin 1.9L, Globulin 4.9, Albumin/Globulin Ratio 0.4L Height (Feet): 5 Height (Inches): 5.00 Weight (Pounds): 180 General Appearance: no apparent distress Neck: other - trached Respiratory/Chest: decreased breath sounds Abdomen: soft Eric Cortez MD Feb 19, 2019 14:43
--- NOTE | 2019-02-19 15:55 | NUR ---
NURSE NOTES: Daughter here to visit with pt. Pt turned and repositioned. Pt suctioned. Will continue to monitor.
--- NOTE | 2019-02-19 17:04 | NUR ---
RESPIRATORY NOTE: pt's stoma has been cleaned, gauzed changed and sxn'd as needed.
--- NOTE | 2019-02-19 17:52 | Surgery Progress Note ---
Surgery Progress Note Subjective Additional Comments Patient seen and examined bedside. Family members at bedside. Had a long discussion with them and reviewed their concerns and goals plans and patient's current medical condition and plans. They are very understanding and have a full plan for her goals of care and noted well. Otherwise patient stable. On T -piece. Objective Last 24 Hour Vital Signs Date Time Temp Pulse Resp B/P (MAP) Pulse Ox O2 Delivery O2 Flow Rate FiO2 02/19/19 17:00 95 24 133/114 (120) 99 02/19/19 16:00 73 02/19/19 16:00 8.0 30 02/19/19 16:00 98.6 74 6 134/47 (76) 100 02/19/19 16:00 Mechanical Ventilator 02/19/19 15:00 87 20 100 T-Piece 8.0 30 77 20 100 02/19/19 15:00 91 35 140/54 (82) 92 02/19/19 14:00 76 4 135/55 (81) 99 02/19/19 13:00 78 0 140/57 (84) 100 02/19/19 12:34 100 T-Piece 8.0 30 02/19/19 12:00 83 02/19/19 12:00 Mechanical Ventilator 02/19/19 12:00 98.7 75 0 112/41 (64) 99 02/19/19 12:00 8.0 30 02/19/19 11:00 87 21 130/54 (79) 100 02/19/19 10:48 84 20 100 T-Piece 8.0 30 77 20 100 02/19/19 10:00 75 6 121/45 (70) 100 02/19/19 09:00 77 19 128/47 (74) 100 02/19/19 08:17 89 130/47 02/19/19 08:00 Mechanical Ventilator 02/19/19 08:00 8.0 30 02/19/19 08:00 98.5 90 5 131/52 (78) 99 02/19/19 08:00 80 02/19/19 07:21 89 20 100 T-Piece 8.0 30 82 22 97 02/19/19 07:14 99 T-Piece 8.0 30 02/19/19 07:11 82 22 98 T-Piece 8.0 30 02/19/19 07:00 79 8 130/47 (74) 99 02/19/19 06:00 78 14 126/45 (72) 98 02/19/19 05:00 83 25 126/55 (78) 99 02/19/19 04:00 82 02/19/19 04:00 8.0 30 02/19/19 04:00 97.8 87 26 117/52 (73) 99 02/19/19 04:00 Mechanical Ventilator 02/19/19 03:12 84 19 100 T-Piece 8.0 30 02/19/19 03:02 80 19 100 T-Piece 8.0 30 02/19/19 03:00 83 43 130/59 (82) 100 02/19/19 02:00 74 18 96/39 (58) 97 02/19/19 01:09 99 T-Piece 8.0 30 02/19/19 01:00 75 24 114/62 (79) 97 02/19/19 01:00 75 24 114/62 (79) 97 02/19/19 00:00 74 02/19/19 00:00 Mechanical Ventilator 02/19/19 00:00 98.0 75 16 99/41 (60) 95 02/19/19 00:00 8.0 30 02/18/19 23:11 81 20 99 T-Piece 8.0 30 02/18/19 23:00 78 12 126/53 (77) 100 02/18/19 22:56 77 17 100 T-Piece 8.0 30 02/18/19 22:00 81 22 125/63 (83) 98 02/18/19 21:02 88 147/56 02/18/19 21:00 109 47 147/56 (86) 98 02/18/19 20:00 Mechanical Ventilator 02/18/19 20:00 97.8 78 27 126/64 (84) 100 02/18/19 20:00 82 02/18/19 20:00 8.0 30 02/18/19 19:31 79 21 100 T-Piece 8.0 30 02/18/19 19:16 70 22 99 T-Piece 8.0 30 02/18/19 19:15 93 23 99 T-Piece 8.0 30 02/18/19 19:15 99 T-Piece 8.0 30 02/18/19 19:00 73 22 101/37 (58) 93 02/18/19 18:00 71 24 101/33 (55) 100 I&O Intake and Output 02/18/19 02/19/19 19:00 07:00 Intake Total 925 ml 1020 ml Output Total 250 ml 550 ml Balance 675 ml 470 ml Free Water 80 ml IV Total 600 ml 600 ml Tube Feeding 245 ml 420 ml Output Urine Total 250 ml 550 ml Dressing: saturated Wound: clean Cardiovascular: RSR Respiratory: clear, decreased breath sounds Abdomen: soft, present bowel sounds, non-distended Extremities: no tenderness, no cyanosis, other Laboratory Tests Test 02/19/19 08:25 White Blood Count 9.5 K/UL (4.8-10.8) Red Blood Count 2.97 M/UL (4.20-5.40) L Hemoglobin 8.1 G/DL (12.0-16.0) L Hematocrit 25.7 % (37.0-47.0) L Mean Corpuscular Volume 86 FL (80-99) Mean Corpuscular Hemoglobin 27.1 PG (27.0-31.0) Mean Corpuscular Hemoglobin Concent 31.4 G/DL (32.0-36.0) L Red Cell Distribution Width 16.3 % (11.6-14.8) H Platelet Count 320 K/UL (150-450) Mean Platelet Volume 6.1 FL (6.5-10.1) L Neutrophils (%) (Auto) 63.3 % (45.0-75.0) Lymphocytes (%) (Auto) 27.8 % (20.0-45.0) Monocytes (%) (Auto) 5.1 % (1.0-10.0) Eosinophils (%) (Auto) 3.0 % (0.0-3.0) Basophils (%) (Auto) 0.8 % (0.0-2.0) Sodium Level 144 MMOL/L (136-145) Potassium Level 3.5 MMOL/L (3.5-5.1) Chloride Level 111 MMOL/L (98-107) H Carbon Dioxide Level 33 MMOL/L (21-32) H Anion Gap 0 mmol/L (5-15) L Blood Urea Nitrogen 14 mg/dL (7-18) Creatinine 1.2 MG/DL (0.55-1.30) Estimat Glomerular Filtration Rate mL/min (>60) Glucose Level 411 MG/DL (74-106) #H Calcium Level 7.4 MG/DL (8.5-10.1) L Phosphorus Level 3.0 MG/DL (2.5-4.9) Magnesium Level 1.8 MG/DL (1.8-2.4) Total Bilirubin 0.1 MG/DL (0.2-1.0) L Aspartate Amino Transf (AST/SGOT) 17 U/L (15-37) Alanine Aminotransferase (ALT/SGPT) 15 U/L (12-78) Alkaline Phosphatase 147 U/L (46-116) H Total Protein 6.8 G/DL (6.4-8.2) Albumin 1.9 G/DL (3.4-5.0) L Globulin 4.9 g/dL Albumin/Globulin Ratio 0.4 (1.0-2.7) L Plan Problems: (1) Sacral decubitus ulcer Assessment & Plan: This is a 83-year-old female with multiple medical committees that is currently admitted for medical care and management and identified to have multiple wounds requiring care. On admission patient noted to have a resolved sacral decubitus ulcer. Has had prior care and is well-healed at this time. Will ensure it does not open up again. Patient has a right ischial decubitus ulcer that is resolved. Scar intact and well formed. Will monitor to ensure it does not open up again. Patient has a left ischial decubitus ulcer that can be identified to be stage IV with palpable bone that has been resolving as noted by the periwound tissue and scar but open area approximately 1 cm x 1.5 cm few millimeters deep to bone identified. Unsure if this is been to be completely healed prior and has since opened or if has been healing at this level. No foul odor no drainage was unsure local wound care until healed Bilateral heels soft without signs of injury Resolving pressure injury L ischium(L)1.8cm x (W)1cm.Scattered biofilm at base of wound. Edges flat and adherent with surrounding hyperpigmentation. No odor or exudate noted. Sacrum is pale pink with surrounding hyperpigmentation. Hyperpigmentation R ischium with small sheared area centrally.No areas of erythema or exudate noted. Both heels are soft but blanchable. Skin Assessed under collar of trach and no evidence of skin breakdown noted. All wound Tx. are effective and continued as ordered. Pt ahs an APM/Belén mattress overlay and is being repositioned per protocols and per tolerance.No new skin concerns noted. Treatment plan: Please apply skin protectant and optifoam to sacral area. Change every 3 days Please apply skin protectant and optifoam to right ischial area. Change every 3 days Please apply Thera honey infused gauze to small opening in the left ischial wound bed followed by skin protectant in the periwound and up to foam. Change daily as needed saturation Apply Xeroform and dressing over left hand blister. Offload pressure from heels with pillow Air soft mattress Turn every 2 hours Nutritional optimization We will monitor follow with recommendations (2) Sepsis Assessment & Plan: IV abx as per ID trend labs improving wounds unlikely etiology likely respiratory imaging noted and okay abnormal lft's stable PICC on Abx in ICU for desaturation CXR with consolidation Evidence of left lower lobe pneumonia, also previously demonstrated Gastrostomy in good position Mild diastasis of the rectus abdominis musculature again demonstrated Retrosacral decubitus changes, better depicted on prior exam which included the pelvis Small hiatal hernia with evidence of trace gastroesophageal reflux (3) Feeding by G-tube Assessment & Plan: DAILY ESTIMATED NEEDS: Needs based on Pulmonary, wounds, bedbound/ 60kg adj 25-28 kcals/kg 7663-5161 total kcals 1.25-2 g protein/kg 75-120 g total protein 25-30 mL/kg 8680-3005 total fluid mLs NUTRITION DIAGNOSIS: * Swallowing difficulty R/T respiratory status as evidenced by pt on T-collar, now back the vent, PEG dep, TF changed to low rate at this time due to episodes of vomiting + residuals. * Increased kcal/prot needs R/T wound healing as evidenced by BL buttocks and sacral wound photos, refer to WC reynaldo. (CURRENT TF:Glucerna 1.5 @35ml) ENTERAL NUTRITION RECOMMENDATIONS: VITAL AF 1.2 @ 55ml/hr x 24 hrs to provide 1320ml, 1584kcal, 99g prot, 1060ml free water - Once medically appropriate to resume TF, rec to initiate elemental and carb control formula of Vital 1.2 for possible improved tolerance - Initiate VITAL 1.2 @ 25ml/hr x 6hrs, advance 10ml q 4-6 hrs as tolerated to goal rate - Flush per MD/ HOB over 30 degrees ADDITIONAL RECOMMENDATIONS: 1) Re-calibrated bedscale wt for accurate CBW 2) Wound healing: Add Cristian 1pkt BID w/ improved Tf tolerace + MVI x1 daily 3) Monitor lytes, replete as needed (low Mg, K) 4) Monitor NPO status, ability to resume TF. -> held on and off due to vomiting since 02/02 5) SSI prn resume tube feeds (4) Chronic vegetative state Assessment & Plan: incontinence of urine and stool. can soil dressings. nurses doing great job with monitoring and changing prn (5) Leukocytosis Walter Madera Feb 19, 2019 17:52
--- NOTE | 2019-02-19 18:12 | NUR ---
NURSE NOTES: Dr Madera here to assess pt and talk with daughter. No new orders. No acute distress. Will continue to monitor.
--- NOTE | 2019-02-19 19:26 | NUR ---
HAND-OFF: Report given to Markel PAEZ.
--- NOTE | 2019-02-19 19:30 | NUR ---
NURSE NOTES: Received pt in no acute distress. Awake, alert but non verbal secondary to trach. No evidence of pain or discomfort. Doesn't follow commands. BUE stiff. On 30% T-piece and saturating 98-99%. Secretions copious, thin, white via tracheal suction. Chest sounds with scattered rhonchi. Afebrile, NSR, BP stable. Pt has generalized edema.PICC on JOSY intact with IVF of D5NS infusing at 50ml/h. GT intact; patent; GTF with Glucerna 1.5 running at 35ml/h with 0 residuals. No BM at this time. Wound dressings intact. Purewick in place; UOP dark fernando, good amount. Will continue to coordinate with RT for frequent suctioning and pulmonary toilet. Continue to monitor vitals signs and for any signs of respiratory distress.
[2019-02-19] MEDS: Dyna-Hex 2% Top Sol 2oz TOPIC SCH (20:54)
--- NOTE | 2019-02-19 22:00 | NUR ---
NURSE NOTES: Calm, passive, no distress. Suctioned orally and via tracheally. Oral care rendered. HOB elevated. Tolerating GTF.
[2019-02-20] VITALS (24 sets, daily range): BP systolic 114–167; BP diastolic 42–76
--- NOTE | 2019-02-20 | NUR ---
NURSE NOTES: Family at the bedside. Updated on pt's status. Pt asleep, calm. Skin warm. Afebrile BP stable. Repositioned. No seizure activity noted.
--- NOTE | 2019-02-20 02:00 | NUR ---
NURSE NOTES: Sleeping, no distress. VSS
[2019-02-20] MEDS: Albuterol/Ipratropium 3ml neb HHN PRN ×6 (02:11→23:07)
--- NOTE | 2019-02-20 04:00 | NUR ---
NURSE NOTES: Incontinent of large soft stool. Wound dressing on sacral area changed. Wrappped Left hand wound with adaptic and kerlix.Redressed GT site and Reji valve changed. Complete bed bath done. Afebrile. No distress.
--- NOTE | 2019-02-20 05:15 | Progress Note ---
DATE: 02/19/2019 CARDIOLOGY PROGRESS NOTE SUBJECTIVE: The patient remains on ventilator support. Secretions are still in large quantities. Sinus rhythm noted. The patient is being tapered to T-tube at times. OBJECTIVE: VITAL SIGNS: Blood pressure 130/47, heart rate 79, respirations 14, respiratory rate ranging from 8 to 25. No fevers. LUNGS: Coarse breath sounds. Scattered rhonchi. Increased secretions from trach. Bilateral rhonchi. HEART: Regular rhythm and rate. Normal S1, S2. No murmur. ABDOMEN: Soft. G-tube intact. EXTREMITIES: No edema. The patient is noncommunicative. LABORATORY DATA: White count 9.5, hemoglobin 8.1. Sodium 144, potassium 3.5, bicarb 33, BUN 14, creatinine 1.2. Albumin 1.9. Magnesium is 1.8. Phosphorus is 3. New sputum culture is positive for gram-negative bacillus x2. IMPRESSION: 1. Healthcare-acquired pneumonia. 2. Respiratory failure. 3. Sepsis. 4. Recovered shock. 5. Secondary sinus tachycardia. 6. Severe protein-calorie malnutrition. 7. Acute on chronic diastolic congestive heart failure. 8. Hypertensive heart disease. PLAN: 1. Antimicrobials. 2. Respiratory hygiene. 3. Weaning efforts. 4. No IV fluids. 5. Periodic diuresis. 6. Maintain current antihypertensive and anti-failure drugs. 7. Nutrition by feeding tube. Bg Hagen M.D. DR: ALEXANDER JOB#: [id number] CC:
--- NOTE | 2019-02-20 06:00 | NUR ---
NURSE NOTES: Calm, passive, asleep. Suctioned for copious amts of thin secretions. VSS
--- NOTE | 2019-02-20 07:05 | NUR ---
HAND-OFF: Report given to Mason Shaw RN.
--- NOTE | 2019-02-20 07:10 | NUR ---
NURSE NOTES: Report received from Mason Greene Rn.Pt resting quietly in bed asleep noted no resp distress with trach tube ,on T-Piece 30%,S-R on the monitor,GTF Glucerna 1.5 at 35 ml/hr,no residual noted,with Pure wick in placed,draining yellow urine,skin warm and dry ,with stage pressure sore to sacral,on P200 mattress,SR up x2 HOB elevated ,bed lck in lowest position,will continue with plans of care.
--- NOTE | 2019-02-20 07:12 | General Progress Note ---
Assessment/Plan Problem List: (1) Seizure ICD Codes: R56.9 - Unspecified convulsions SNOMED: 91300630 (2) Anemia ICD Codes: D64.9 - Anemia, unspecified SNOMED: 240292558 Qualifiers: Qualified Codes: D64.9 - Anemia, unspecified (3) Sepsis ICD Codes: A41.9 - Sepsis, unspecified organism SNOMED: 02967192, 274179296 Qualifiers: Qualified Codes: A41.9 - Sepsis, unspecified organism (4) Respiratory failure with hypoxia ICD Codes: J96.91 - Respiratory failure, unspecified with hypoxia SNOMED: 50655683137991322 Qualifiers: Qualified Codes: J96.21 - Acute and chronic respiratory failure with hypoxia (5) HCAP (healthcare-associated pneumonia) ICD Codes: J18.9 - Pneumonia, unspecified organism SNOMED: 300126941, 724653074 (6) Sacral decubitus ulcer ICD Codes: L89.159 - Pressure ulcer of sacral region, unspecified stage SNOMED: 572645440 (7) HTN (hypertension) ICD Codes: I10 - Essential (primary) hypertension SNOMED: 56347789 (8) Chronic vegetative state ICD Codes: R40.3 - Persistent vegetative state SNOMED: 08457182 (9) Chronic respiratory failure ICD Codes: J96.10 - Chronic respiratory failure, unspecified whether with hypoxia or hypercapnia SNOMED: 57009227 (10) Limited mobility ICD Codes: Z74.09 - Other reduced mobility SNOMED: 5064962 Status: stable, progressing Assessment/Plan: vent prn as needed resp rx suctioning as needed gt feeds monitor for vomiting bowel regime monitor residuals cont keppra for szs repeat sputum culture follow uplabs transfuse prn dc planning Subjective ROS Limited/Unobtainable: Yes Constitutional: Reports: malaise, weakness HEENT: Reports: no symptoms Cardiovascular: Reports: no symptoms Respiratory: Reports: cough, sputum Gastrointestinal/Abdominal: Reports: difficulty swallowing Genitourinary: Reports: no symptoms Neurologic/Psychiatric: Reports: pre-existing deficit, seizure Endocrine: Reports: no symptoms Hematologic/Lymphatic: Reports: no symptoms Allergies: Coded Allergies: CODEINE (Verified Allergy, Unknown, HIVES, 09/15/09) All Systems: reviewed and negative except above Subjective better today. less congested. still having alot of secretions. labs pending. no bleeding, cxr unchanged. Objective Last 24 Hour Vital Signs Date Time Temp Pulse Resp B/P (MAP) Pulse Ox O2 Delivery O2 Flow Rate FiO2 02/20/19 06:00 77 26 132/56 (81) 97 02/20/19 05:00 81 26 152/73 (99) 100 02/20/19 04:00 98.4 86 24 159/75 (103) 100 02/20/19 04:00 T-piece 10.0 02/20/19 04:00 10.0 30 02/20/19 04:00 82 02/20/19 03:00 73 16 117/42 (67) 95 02/20/19 02:13 78 20 100 T-Piece 8.0 30 76 20 100 02/20/19 02:00 76 28 135/57 (83) 99 02/20/19 01:21 100 T-Piece 8.0 30 02/20/19 01:00 80 13 151/64 (93) 98 02/20/19 00:00 10.0 30 02/20/19 00:00 80 02/20/19 00:00 99.0 79 9 146/60 (88) 97 02/20/19 00:00 T-piece 10.0 02/19/19 23:00 80 22 134/48 (76) 97 02/19/19 22:26 79 20 100 T-Piece 8.0 30 77 20 100 02/19/19 22:00 79 2 140/50 (80) 99 02/19/19 21:00 80 33 140/51 (80) 98 02/19/19 20:55 81 139/53 02/19/19 20:00 8.0 30 02/19/19 20:00 80 02/19/19 20:00 98.7 73 18 139/53 (81) 99 02/19/19 20:00 T-piece 10.0 02/19/19 19:30 100 T-Piece 8.0 30 02/19/19 19:28 78 20 100 T-Piece 8.0 30 75 20 99 02/19/19 19:26 78 20 99 T-Piece 8.0 30 02/19/19 19:00 89 26 154/58 (90) 98 02/19/19 18:00 72 5 140/53 (82) 100 02/19/19 17:00 95 24 133/114 (120) 99 02/19/19 16:00 73 02/19/19 16:00 8.0 30 02/19/19 16:00 98.6 74 6 134/47 (76) 100 02/19/19 16:00 Mechanical Ventilator 02/19/19 15:00 87 20 100 T-Piece 8.0 30 77 20 100 02/19/19 15:00 91 35 140/54 (82) 92 02/19/19 14:00 76 4 135/55 (81) 99 02/19/19 13:00 78 0 140/57 (84) 100 02/19/19 12:34 100 T-Piece 8.0 30 02/19/19 12:00 83 02/19/19 12:00 Mechanical Ventilator 02/19/19 12:00 98.7 75 0 112/41 (64) 99 02/19/19 12:00 8.0 30 02/19/19 11:00 87 21 130/54 (79) 100 02/19/19 10:48 84 20 100 T-Piece 8.0 30 77 20 100 02/19/19 10:00 75 6 121/45 (70) 100 02/19/19 09:00 77 19 128/47 (74) 100 02/19/19 08:17 89 130/47 02/19/19 08:00 Mechanical Ventilator 02/19/19 08:00 8.0 30 02/19/19 08:00 98.5 90 5 131/52 (78) 99 02/19/19 08:00 80 02/19/19 07:21 89 20 100 T-Piece 8.0 30 82 22 97 02/19/19 07:14 99 T-Piece 8.0 30 02/19/19 07:11 82 22 98 T-Piece 8.0 30 Intake and Output 02/19/19 02/20/19 19:00 07:00 Intake Total 970 ml 900 ml Output Total 210 ml 600 ml Balance 760 ml 300 ml IV Total 550 ml 550 ml Tube Feeding 420 ml 350 ml Output Urine Total 210 ml 600 ml # Bowel Movements 2 Laboratory Tests 02/19/19 08:25: White Blood Count 9.5, Red Blood Count 2.97L, Hemoglobin 8.1L, Hematocrit 25.7L , Mean Corpuscular Volume 86, Mean Corpuscular Hemoglobin 27.1, Mean Corpuscular Hemoglobin Concent 31.4L, Red Cell Distribution Width 16.3H, Platelet Count 320, Mean Platelet Volume 6.1L, Neutrophils (%) (Auto) 63.3, Lymphocytes (%) (Auto) 27.8, Monocytes (%) (Auto) 5.1, Eosinophils (%) (Auto) 3.0, Basophils (%) (Auto) 0.8, Sodium Level 144, Potassium Level 3.5, Chloride Level 111H, Carbon Dioxide Level 33H, Anion Gap 0L, Blood Urea Nitrogen 14, Creatinine 1.2, Estimat Glomerular Filtration Rate , Glucose Level 411#H, Calcium Level 7.4L, Phosphorus Level 3.0, Magnesium Level 1.8, Total Bilirubin 0.1L, Aspartate Amino Transf (AST/SGOT) 17, Alanine Aminotransferase (ALT/SGPT) 15, Alkaline Phosphatase 147H, Total Protein 6.8, Albumin 1.9L, Globulin 4.9, Albumin/Globulin Ratio 0.4L Height (Feet): 5 Height (Inches): 5.00 Weight (Pounds): 180 Objective General Appearance: WD/WN, confused. on trach collar Neck: supple Cardiovascular: normal rate, regular rhythm Respiratory/Chest: chest wall non-tender, rhonchi - bilaterally(minimal) Abdomen: normal bowel sounds, non tender, soft, no organomegaly Edema: no edema noted Arm (L), no edema noted Arm (R), no edema noted Leg (L), no edema noted Leg (R), no edema noted Pedal (L), no edema noted Pedal (R), no edema noted Generalized Neurologic: disoriented, unresponsive, aphasia Irvin Beltrán MD Feb 20, 2019 07:12
--- NOTE | 2019-02-20 07:33 | NUR ---
RESPIRATORY NOTE: Received pt on cool aerosol 30% 8L with trach Shiley XLT size 6.0 secured by trach guard/ trach tie. Pt is resting in the bed, no SOB or resp distress noted. Breathing TX Duoned prn and Mucomyst 10% given without any adverse reactions. Man rhonchi breath sounds heard upon auscultation, suctioned moderate amounts of thin frothy clear white secretions without incidents. Oral care done, trach dressing changed, stoma site cleaned. Vent stands by, ambu bag and trach spare kit at bedside. Will continue to monitor pt closely.
[2019-02-20 08:49] LABS: ALANINE AMINOTRANSFERASE 16 U/L (12-78); ALBUMIN 2.1 G/DL (3.4-5.0); ALBUMIN/GLOBULIN RATIO 0.4 (1.0-2.7); ALKALINE PHOSPHATASE 146 U/L (46-116); ANION GAP -2 mmol/L (5-15); ASPARTATE AMINO TRANSFERASE 19 U/L (15-37); BILIRUBIN,TOTAL 0.2 MG/DL (0.2-1.0); BLOOD UREA NITROGEN 16 mg/dL (7-18); CALCIUM 8.1 MG/DL (8.5-10.1); CARBON DIOXIDE 35 MMOL/L (21-32); CHLORIDE 109 MMOL/L (98-107); CREATININE 1.1 MG/DL (0.55-1.30); SODIUM 142 MMOL/L (136-145)
[2019-02-20] MEDS: Pantoprazole Inj IVP SCH ×2 (08:52→20:13)
[2019-02-20] MEDS: levETIRAcetam 500mg/5ml Liquid GT SCH ×2 (08:52→20:13)
[2019-02-20] MEDS: Ascorbic Acid 500mg tab GT SCH (08:53)
[2019-02-20] MEDS: Heparin 5000 units/ml inj SUBQ SCH ×2 (08:55→20:14)
[2019-02-20 09:03] LABS: BASOPHILS % (AUTO) 0.8 % (0.0-2.0); EOSINOPHILS % (AUTO) 4.1 % (0.0-3.0); HEMATOCRIT 26.9 % (37.0-47.0); HEMOGLOBIN 8.5 G/DL (12.0-16.0); LYMPHOCYTES % (AUTO) 25.9 % (20.0-45.0); MEAN CORPUSCULAR VOLUME 85 FL (80-99); MONOCYTES % (AUTO) 6.4 % (1.0-10.0); NEUTROPHILS % (AUTO) 62.7 % (45.0-75.0); PLATELET COUNT 324 K/UL (150-450); RED BLOOD COUNT 3.17 M/UL (4.20-5.40); RED CELL DISTRIBUTION WIDTH 16.2 % (11.6-14.8); WHITE BLOOD COUNT 8.7 K/UL (4.8-10.8)
--- NOTE | 2019-02-20 09:49 | NUR ---
RD ASSESSMENT & RECOMMENDATIONS SEE CARE ACTIVITY FOR COMPLETE ASSESSMENT DAILY ESTIMATED NEEDS: Needs based on Pulmonary, wounds, bedbound/ 60kg adj 25-28 kcals/kg 8844-6793 total kcals 1.25-2 g protein/kg 75-120 g total protein 25-30 mL/kg 9042-0931 total fluid mLs NUTRITION DIAGNOSIS: * Swallowing difficulty R/T respiratory status as evidenced by pt on T-collar, now back the vent, PEG dep, TF changed to low rate at this time due to episodes of vomiting + residuals. * Increased kcal/prot needs R/T wound healing as evidenced by BL buttocks and sacral wound photos, refer to eval. CURRENT TF:Glucerna 1.5 @35ml ENTERAL NUTRITION RECOMMENDATIONS: Glucerna 1.5 @ 45ml/hr x 24 hrs to provide 1080ml, 1620kcal, 89g prot, 820ml free water - W/ continued good TF tolerance, rec to increase goal rate to 45ml/hr x 24 hrs to meet 100% est kcal/prot needs - HOB over 30 degrees - Water flush of 170ml q 6 hrs * W/ any further TF intolerances, rec TF change to elemental and carb controlled formula of Vital AF 1.2 for possible improved tolerance -> Rec VITAL AF 1.2 @ 55ml/hr x 24 hrs to provide 1320ml, 1584kcal, 99g prot, 1060ml free water ADDITIONAL RECOMMENDATIONS: 1) Re-calibrated bedscale wt for accurate CBW 2) Wound healing: Add Cristian 1pkt BID w/ improved Tf tolerance + MVI x1 daily 3) Monitor lytes, replete as needed 4) SSI prn + Accuchecks/ POC for improved BG control 5) Monitor TF tolerance: GJ conversion held at this time rec to increase TF as above w/ continued good TF tolerance
--- NOTE | 2019-02-20 10:00 | NUR ---
NURSE NOTES: Tracheal/oral secretions suctioned frequently and PRNby RN and RT alternately,pt with large amount of whitish sticky phlegm.
--- NOTE | 2019-02-20 10:34 | Infectious Diseases Prog Note ---
"Assessment/Plan Assessment/Plan antibiotics : none A 1. UTI with proteus s/p rx 2. respiratory failure 3. hypertension 4. CVA 5. dementia 6. sacral decubitus ulcer 7. rectal VRE colonization 8. klebsiella | providencia pneumonia 9. renal failure resolved P 1. start inhaled amikacin 2. will follow up cultures Subjective ROS Limited/Unobtainable: Yes Allergies: Coded Allergies: CODEINE (Verified Allergy, Unknown, HIVES, 09/15/09) Objective Vital Signs Last 24 Hour Vital Signs Date Time Temp Pulse Resp B/P (MAP) Pulse Ox O2 Delivery O2 Flow Rate FiO2 02/20/19 08:53 78 152/73 02/20/19 08:00 98.2 78 24 152/73 (99) 100 02/20/19 08:00 10.0 30 02/20/19 07:33 78 23 100 T-Piece 8.0 30 77 25 99 02/20/19 07:18 99 T-Piece 8.0 30 02/20/19 07:00 78 25 159/75 (103) 99 02/20/19 06:00 77 26 132/56 (81) 97 02/20/19 05:00 81 26 152/73 (99) 100 02/20/19 04:00 98.4 86 24 159/75 (103) 100 02/20/19 04:00 T-piece 10.0 02/20/19 04:00 10.0 30 02/20/19 04:00 82 02/20/19 03:00 73 16 117/42 (67) 95 02/20/19 02:13 78 20 100 T-Piece 8.0 30 76 20 100 02/20/19 02:00 76 28 135/57 (83) 99 02/20/19 01:21 100 T-Piece 8.0 30 02/20/19 01:00 80 13 151/64 (93) 98 02/20/19 00:00 10.0 30 02/20/19 00:00 80 02/20/19 00:00 99.0 79 9 146/60 (88) 97 02/20/19 00:00 T-piece 10.0 02/19/19 23:00 80 22 134/48 (76) 97 02/19/19 22:26 79 20 100 T-Piece 8.0 30 77 20 100 02/19/19 22:00 79 2 140/50 (80) 99 02/19/19 21:00 80 33 140/51 (80) 98 02/19/19 20:55 81 139/53 02/19/19 20:00 8.0 30 02/19/19 20:00 80 02/19/19 20:00 98.7 73 18 139/53 (81) 99 02/19/19 20:00 T-piece 10.0 02/19/19 19:30 100 T-Piece 8.0 30 02/19/19 19:28 78 20 100 T-Piece 8.0 30 75 20 99 02/19/19 19:26 78 20 99 T-Piece 8.0 30 02/19/19 19:00 89 26 154/58 (90) 98 02/19/19 18:00 72 5 140/53 (82) 100 02/19/19 17:00 95 24 133/114 (120) 99 02/19/19 16:00 73 02/19/19 16:00 8.0 30 02/19/19 16:00 98.6 74 6 134/47 (76) 100 02/19/19 16:00 Mechanical Ventilator 02/19/19 15:00 87 20 100 T-Piece 8.0 30 77 20 100 02/19/19 15:00 91 35 140/54 (82) 92 02/19/19 14:00 76 4 135/55 (81) 99 02/19/19 13:00 78 0 140/57 (84) 100 02/19/19 12:34 100 T-Piece 8.0 30 02/19/19 12:00 83 02/19/19 12:00 Mechanical Ventilator 02/19/19 12:00 98.7 75 0 112/41 (64) 99 02/19/19 12:00 8.0 30 02/19/19 11:00 87 21 130/54 (79) 100 02/19/19 10:48 84 20 100 T-Piece 8.0 30 77 20 100 Height (Feet): 5 Height (Inches): 5.00 Weight (Pounds): 180 HEENT: status post trach Respiratory/Chest: lungs clear Cardiovascular: normal rate, regular rhythm, no gallop/murmur Abdomen: soft, non tender, other - GT Extremities: no edema, other Microbiology Date/Time Source Procedure Growth Status 02/17/19 11:30 Sputum Gram Stain - Final Complete 02/17/19 11:30 Sputum Culture - Final K.pneumoniae Carbapenem Resist Providencia Stuartii Complete Laboratory Tests Test 02/20/19 08:01 White Blood Count 8.7 K/UL (4.8-10.8) Red Blood Count 3.17 M/UL (4.20-5.40) L Hemoglobin 8.5 G/DL (12.0-16.0) L Hematocrit 26.9 % (37.0-47.0) L Mean Corpuscular Volume 85 FL (80-99) Mean Corpuscular Hemoglobin 26.9 PG (27.0-31.0) L Mean Corpuscular Hemoglobin Concent 31.7 G/DL (32.0-36.0) L Red Cell Distribution Width 16.2 % (11.6-14.8) H Platelet Count 324 K/UL (150-450) Mean Platelet Volume 4.5 FL (6.5-10.1) L Neutrophils (%) (Auto) 62.7 % (45.0-75.0) Lymphocytes (%) (Auto) 25.9 % (20.0-45.0) Monocytes (%) (Auto) 6.4 % (1.0-10.0) Eosinophils (%) (Auto) 4.1 % (0.0-3.0) H Basophils (%) (Auto) 0.8 % (0.0-2.0) Sodium Level 142 MMOL/L (136-145) Potassium Level 4.0 MMOL/L (3.5-5.1) Chloride Level 109 MMOL/L (98-107) H Carbon Dioxide Level 35 MMOL/L (21-32) H Anion Gap -2 mmol/L (5-15) L Blood Urea Nitrogen 16 mg/dL (7-18) Creatinine 1.1 MG/DL (0.55-1.30) Estimat Glomerular Filtration Rate mL/min (>60) Glucose Level 108 MG/DL (74-106) #H Calcium Level 8.1 MG/DL (8.5-10.1) L Total Bilirubin 0.2 MG/DL (0.2-1.0) Aspartate Amino Transf (AST/SGOT) 19 U/L (15-37) Alanine Aminotransferase (ALT/SGPT) 16 U/L (12-78) Alkaline Phosphatase 146 U/L (46-116) H Total Protein 7.4 G/DL (6.4-8.2) Albumin 2.1 G/DL (3.4-5.0) L Globulin 5.3 g/dL Albumin/Globulin Ratio 0.4 (1.0-2.7) L Current Medications Medications (Trade) Dose Ordered Sig/Maicol Route PRN Reason Start Time Stop Time Status Last Admin Dose Admin Acetaminophen (Tylenol) 650 mg Q4H PRN GT Mild Pain/Temp > 100.5 02/18/19 05:44 03/05/19 05:43 Acetylcysteine (Mucomyst) 100 mg Q4HRT HHN 02/18/19 07:00 03/03/19 12:59 02/20/19 07:18 Albuterol/ Ipratropium (Albuterol/ Ipratropium) 3 ml Q4H PRN HHN Shortness of Breath 02/18/19 05:45 02/22/19 05:44 02/20/19 07:18 Ascorbic Acid (Vitamin C) 250 mg DAILY GT 02/18/19 09:00 02/24/19 08:59 02/20/19 08:53 Atropine Sulfate (Atropine Opth Adriana) 1 drop TID SL 02/18/19 09:00 03/12/19 09:29 02/19/19 17:50 Bisacodyl (Dulcolax) 10 mg PRN PRN RECTAL Constipation 02/18/19 05:30 02/23/19 05:29 Chlorhexidine Gluconate (Cesilia-Hex 2%) 1 applic DAILY@2000 TOPIC 02/18/19 20:00 03/12/19 19:59 02/19/19 20:54 Dextrose/Sodium Chloride 1,000 ml @ 50 mls/hr Q20H IV 02/18/19 06:00 03/19/19 05:59 02/19/19 20:58 Heparin Sodium (Porcine) (Heparin 5000 units/ml) 5,000 units EVERY 12 HOURS SUBQ 02/18/19 09:00 03/16/19 23:14 02/20/19 08:55 Hydralazine HCl (Apresoline) 25 mg Q4H PRN GT SBP above 160 02/18/19 05:46 03/09/19 05:45 Levetiracetam (Keppra) 750 mg Q12HR GT 02/18/19 09:00 03/16/19 23:29 02/20/19 08:52 Metoclopramide HCl (Reglan) 10 mg Q6H PRN IVP Nausea & Vomiting 02/18/19 05:46 03/09/19 05:45 Metoprolol Tartrate (Lopressor) 25 mg Q12HR GT 02/18/19 09:00 03/16/19 23:29 02/20/19 08:53 Ondansetron HCl (Zofran) 4 mg Q6H PRN GT Nausea & Vomiting 02/18/19 05:46 02/23/19 05:45 Pantoprazole (Protonix) 40 mg Q12HR IVP 02/18/19 09:00 03/16/19 23:29 02/20/19 08:52 Geovany Yang MD Feb 20, 2019 10:34"
--- NOTE | 2019-02-20 13:11 | Nephrology Progress Note ---
Assessment/Plan Problem List: (1) Acute renal failure (ARF) Assessment: Cr stable (2) Chronic respiratory failure (3) Anemia (4) Sepsis Assessment Acute renal failure Respiratory failure - Trach Low Mag- Low k , Low Na Anemia UTI / Sepsis Proteinuria / HypoAlbuminemia high Trigs Sz decubs bed bound DNR Plan K and Mag and Phos supplement as needed Hydrate Urine studies avoid Nephrotoxics mag K Phos supplements as needed monitor renal parameters Subjective ROS Limited/Unobtainable: Yes Objective Objective Last 24 Hour Vital Signs Date Time Temp Pulse Resp B/P (MAP) Pulse Ox O2 Delivery O2 Flow Rate FiO2 02/20/19 13:00 69 25 140/52 (81) 100 02/20/19 12:00 10.0 30 02/20/19 12:00 89 26 114/48 (70) 100 02/20/19 12:00 70 02/20/19 11:10 71 23 100 T-Piece 8.0 30 72 24 98 02/20/19 11:00 73 24 146/76 (99) 100 02/20/19 10:00 75 24 133/56 (81) 97 02/20/19 09:00 76 24 143/58 (86) 100 02/20/19 08:53 78 152/73 02/20/19 08:00 73 02/20/19 08:00 98.2 78 24 152/73 (99) 100 02/20/19 08:00 10.0 30 02/20/19 07:33 78 23 100 T-Piece 8.0 30 77 25 99 02/20/19 07:18 99 T-Piece 8.0 30 02/20/19 07:00 78 25 159/75 (103) 99 02/20/19 06:00 77 26 132/56 (81) 97 02/20/19 05:00 81 26 152/73 (99) 100 02/20/19 04:00 98.4 86 24 159/75 (103) 100 02/20/19 04:00 T-piece 10.0 02/20/19 04:00 10.0 30 02/20/19 04:00 82 02/20/19 03:00 73 16 117/42 (67) 95 02/20/19 02:13 78 20 100 T-Piece 8.0 30 76 20 100 02/20/19 02:00 76 28 135/57 (83) 99 02/20/19 01:21 100 T-Piece 8.0 30 02/20/19 01:00 80 13 151/64 (93) 98 02/20/19 00:00 10.0 30 02/20/19 00:00 80 02/20/19 00:00 99.0 79 9 146/60 (88) 97 02/20/19 00:00 T-piece 10.0 02/19/19 23:00 80 22 134/48 (76) 97 02/19/19 22:26 79 20 100 T-Piece 8.0 30 77 20 100 02/19/19 22:00 79 2 140/50 (80) 99 02/19/19 21:00 80 33 140/51 (80) 98 02/19/19 20:55 81 139/53 02/19/19 20:00 8.0 30 02/19/19 20:00 80 02/19/19 20:00 98.7 73 18 139/53 (81) 99 02/19/19 20:00 T-piece 10.0 02/19/19 19:30 100 T-Piece 8.0 30 02/19/19 19:28 78 20 100 T-Piece 8.0 30 75 20 99 02/19/19 19:26 78 20 99 T-Piece 8.0 30 02/19/19 19:00 89 26 154/58 (90) 98 02/19/19 18:00 72 5 140/53 (82) 100 02/19/19 17:00 95 24 133/114 (120) 99 02/19/19 16:00 73 02/19/19 16:00 8.0 30 02/19/19 16:00 98.6 74 6 134/47 (76) 100 02/19/19 16:00 Mechanical Ventilator 02/19/19 15:00 87 20 100 T-Piece 8.0 30 77 20 100 02/19/19 15:00 91 35 140/54 (82) 92 02/19/19 14:00 76 4 135/55 (81) 99 Intake and Output 02/19/19 02/20/19 19:00 07:00 Intake Total 970 ml 985 ml Output Total 210 ml 600 ml Balance 760 ml 385 ml IV Total 550 ml 600 ml Tube Feeding 420 ml 385 ml Output Urine Total 210 ml 600 ml # Bowel Movements 2 Laboratory Tests 02/20/19 08:01: White Blood Count 8.7, Red Blood Count 3.17L, Hemoglobin 8.5L, Hematocrit 26.9L , Mean Corpuscular Volume 85, Mean Corpuscular Hemoglobin 26.9L, Mean Corpuscular Hemoglobin Concent 31.7L, Red Cell Distribution Width 16.2H, Platelet Count 324, Mean Platelet Volume 4.5L, Neutrophils (%) (Auto) 62.7, Lymphocytes (%) (Auto) 25.9, Monocytes (%) (Auto) 6.4, Eosinophils (%) (Auto) 4.1H, Basophils (%) (Auto) 0.8, Sodium Level 142, Potassium Level 4.0, Chloride Level 109H, Carbon Dioxide Level 35H, Anion Gap -2L, Blood Urea Nitrogen 16, Creatinine 1.1, Estimat Glomerular Filtration Rate , Glucose Level 108#H, Calcium Level 8.1L, Total Bilirubin 0.2, Aspartate Amino Transf (AST/SGOT) 19, Alanine Aminotransferase (ALT/SGPT) 16, Alkaline Phosphatase 146H, Total Protein 7.4, Albumin 2.1L, Globulin 5.3, Albumin/Globulin Ratio 0.4L Height (Feet): 5 Height (Inches): 5.00 Weight (Pounds): 180 General Appearance: no apparent distress EENT: other - Trach to O2 Cardiovascular: normal rate Respiratory/Chest: decreased breath sounds Abdomen: distended Eric Cortez MD Feb 20, 2019 13:11
--- NOTE | 2019-02-20 14:00 | NUR ---
NURSE NOTES: Pt stable,turned an repositioned,no resp distress presented,pt quiet in bed.
--- NOTE | 2019-02-20 15:38 | Surgery Progress Note ---
Surgery Progress Note Subjective Additional Comments in icu exam unchanged comfortable appearing off vent and on t piece Objective Last 24 Hour Vital Signs Date Time Temp Pulse Resp B/P (MAP) Pulse Ox O2 Delivery O2 Flow Rate FiO2 02/20/19 15:28 68 21 100 T-Piece 8.0 30 69 23 100 02/20/19 14:00 72 23 140/57 (84) 100 02/20/19 13:05 98 T-Piece 8.0 30 02/20/19 13:00 69 25 140/52 (81) 100 02/20/19 12:00 97.8 89 26 114/48 (70) 100 02/20/19 12:00 10.0 30 02/20/19 12:00 89 26 114/48 (70) 100 02/20/19 12:00 70 02/20/19 11:10 71 23 100 T-Piece 8.0 30 72 24 98 02/20/19 11:00 73 24 146/76 (99) 100 02/20/19 10:00 75 24 133/56 (81) 97 02/20/19 09:00 76 24 143/58 (86) 100 02/20/19 08:53 78 152/73 02/20/19 08:00 73 02/20/19 08:00 98.2 78 24 152/73 (99) 100 02/20/19 08:00 10.0 30 02/20/19 07:33 78 23 100 T-Piece 8.0 30 77 25 99 02/20/19 07:18 99 T-Piece 8.0 30 02/20/19 07:00 78 25 159/75 (103) 99 02/20/19 06:00 77 26 132/56 (81) 97 02/20/19 05:00 81 26 152/73 (99) 100 02/20/19 04:00 98.4 86 24 159/75 (103) 100 02/20/19 04:00 T-piece 10.0 02/20/19 04:00 10.0 30 02/20/19 04:00 82 02/20/19 03:00 73 16 117/42 (67) 95 02/20/19 02:13 78 20 100 T-Piece 8.0 30 76 20 100 02/20/19 02:00 76 28 135/57 (83) 99 02/20/19 01:21 100 T-Piece 8.0 30 02/20/19 01:00 80 13 151/64 (93) 98 02/20/19 00:00 10.0 30 02/20/19 00:00 80 02/20/19 00:00 99.0 79 9 146/60 (88) 97 02/20/19 00:00 T-piece 10.0 02/19/19 23:00 80 22 134/48 (76) 97 02/19/19 22:26 79 20 100 T-Piece 8.0 30 77 20 100 02/19/19 22:00 79 2 140/50 (80) 99 02/19/19 21:00 80 33 140/51 (80) 98 02/19/19 20:55 81 139/53 02/19/19 20:00 8.0 30 02/19/19 20:00 80 02/19/19 20:00 98.7 73 18 139/53 (81) 99 02/19/19 20:00 T-piece 10.0 02/19/19 19:30 100 T-Piece 8.0 30 02/19/19 19:28 78 20 100 T-Piece 8.0 30 75 20 99 02/19/19 19:26 78 20 99 T-Piece 8.0 30 02/19/19 19:00 89 26 154/58 (90) 98 02/19/19 18:00 72 5 140/53 (82) 100 02/19/19 17:00 95 24 133/114 (120) 99 02/19/19 16:00 73 02/19/19 16:00 8.0 30 02/19/19 16:00 98.6 74 6 134/47 (76) 100 02/19/19 16:00 Mechanical Ventilator I&O Intake and Output 02/19/19 02/20/19 19:00 07:00 Intake Total 970 ml 985 ml Output Total 210 ml 600 ml Balance 760 ml 385 ml IV Total 550 ml 600 ml Tube Feeding 420 ml 385 ml Output Urine Total 210 ml 600 ml # Bowel Movements 2 Dressing: dry Wound: clean Cardiovascular: RSR Respiratory: clear, decreased breath sounds Abdomen: soft, present bowel sounds Extremities: no cyanosis, other Laboratory Tests Test 02/20/19 08:01 White Blood Count 8.7 K/UL (4.8-10.8) Red Blood Count 3.17 M/UL (4.20-5.40) L Hemoglobin 8.5 G/DL (12.0-16.0) L Hematocrit 26.9 % (37.0-47.0) L Mean Corpuscular Volume 85 FL (80-99) Mean Corpuscular Hemoglobin 26.9 PG (27.0-31.0) L Mean Corpuscular Hemoglobin Concent 31.7 G/DL (32.0-36.0) L Red Cell Distribution Width 16.2 % (11.6-14.8) H Platelet Count 324 K/UL (150-450) Mean Platelet Volume 4.5 FL (6.5-10.1) L Neutrophils (%) (Auto) 62.7 % (45.0-75.0) Lymphocytes (%) (Auto) 25.9 % (20.0-45.0) Monocytes (%) (Auto) 6.4 % (1.0-10.0) Eosinophils (%) (Auto) 4.1 % (0.0-3.0) H Basophils (%) (Auto) 0.8 % (0.0-2.0) Sodium Level 142 MMOL/L (136-145) Potassium Level 4.0 MMOL/L (3.5-5.1) Chloride Level 109 MMOL/L (98-107) H Carbon Dioxide Level 35 MMOL/L (21-32) H Anion Gap -2 mmol/L (5-15) L Blood Urea Nitrogen 16 mg/dL (7-18) Creatinine 1.1 MG/DL (0.55-1.30) Estimat Glomerular Filtration Rate mL/min (>60) Glucose Level 108 MG/DL (74-106) #H Calcium Level 8.1 MG/DL (8.5-10.1) L Total Bilirubin 0.2 MG/DL (0.2-1.0) Aspartate Amino Transf (AST/SGOT) 19 U/L (15-37) Alanine Aminotransferase (ALT/SGPT) 16 U/L (12-78) Alkaline Phosphatase 146 U/L (46-116) H Total Protein 7.4 G/DL (6.4-8.2) Albumin 2.1 G/DL (3.4-5.0) L Globulin 5.3 g/dL Albumin/Globulin Ratio 0.4 (1.0-2.7) L Plan Problems: (1) Sacral decubitus ulcer Assessment & Plan: This is a 83-year-old female with multiple medical committees that is currently admitted for medical care and management and identified to have multiple wounds requiring care. On admission patient noted to have a resolved sacral decubitus ulcer. Has had prior care and is well-healed at this time. Will ensure it does not open up again. Patient has a right ischial decubitus ulcer that is resolved. Scar intact and well formed. Will monitor to ensure it does not open up again. Patient has a left ischial decubitus ulcer that can be identified to be stage IV with palpable bone that has been resolving as noted by the periwound tissue and scar but open area approximately 1 cm x 1.5 cm few millimeters deep to bone identified. Unsure if this is been to be completely healed prior and has since opened or if has been healing at this level. No foul odor no drainage was unsure local wound care until healed Bilateral heels soft without signs of injury Resolving pressure injury L ischium(L)1.8cm x (W)1cm.Scattered biofilm at base of wound. Edges flat and adherent with surrounding hyperpigmentation. No odor or exudate noted. Sacrum is pale pink with surrounding hyperpigmentation. Hyperpigmentation R ischium with small sheared area centrally.No areas of erythema or exudate noted. Both heels are soft but blanchable. Skin Assessed under collar of trach and no evidence of skin breakdown noted. All wound Tx. are effective and continued as ordered. Pt ahs an APM/Belén mattress overlay and is being repositioned per protocols and per tolerance.No new skin concerns noted. Treatment plan: Please apply skin protectant and optifoam to sacral area. Change every 3 days Please apply skin protectant and optifoam to right ischial area. Change every 3 days Please apply Thera honey infused gauze to small opening in the left ischial wound bed followed by skin protectant in the periwound and up to foam. Change daily as needed saturation Apply Xeroform and dressing over left hand blister. Offload pressure from heels with pillow Air soft mattress Turn every 2 hours Nutritional optimization We will monitor follow with recommendations (2) Sepsis Assessment & Plan: IV abx as per ID trend labs improving wounds unlikely etiology likely respiratory imaging noted and okay abnormal lft's stable PICC on Abx in ICU for desaturation CXR with consolidation Evidence of left lower lobe pneumonia, also previously demonstrated Gastrostomy in good position Mild diastasis of the rectus abdominis musculature again demonstrated Retrosacral decubitus changes, better depicted on prior exam which included the pelvis Small hiatal hernia with evidence of trace gastroesophageal reflux (3) Feeding by G-tube Assessment & Plan: DAILY ESTIMATED NEEDS: Needs based on Pulmonary, wounds, bedbound/ 60kg adj 25-28 kcals/kg 5773-5026 total kcals 1.25-2 g protein/kg 75-120 g total protein 25-30 mL/kg 8741-2827 total fluid mLs NUTRITION DIAGNOSIS: * Swallowing difficulty R/T respiratory status as evidenced by pt on T-collar, now back the vent, PEG dep, TF changed to low rate at this time due to episodes of vomiting + residuals. * Increased kcal/prot needs R/T wound healing as evidenced by BL buttocks and sacral wound photos, refer to eval. (CURRENT TF:Glucerna 1.5 @35ml) ENTERAL NUTRITION RECOMMENDATIONS: VITAL AF 1.2 @ 55ml/hr x 24 hrs to provide 1320ml, 1584kcal, 99g prot, 1060ml free water - Once medically appropriate to resume TF, rec to initiate elemental and carb control formula of Vital 1.2 for possible improved tolerance - Initiate VITAL 1.2 @ 25ml/hr x 6hrs, advance 10ml q 4-6 hrs as tolerated to goal rate - Flush per MD/ HOB over 30 degrees ADDITIONAL RECOMMENDATIONS: 1) Re-calibrated bedscale wt for accurate CBW 2) Wound healing: Add Cristian 1pkt BID w/ improved Tf tolerace + MVI x1 daily 3) Monitor lytes, replete as needed (low Mg, K) 4) Monitor NPO status, ability to resume TF. -> held on and off due to vomiting since 02/02 5) SSI prn resume tube feeds (4) Chronic vegetative state Assessment & Plan: incontinence of urine and stool. can soil dressings. nurses doing great job with monitoring and changing prn (5) Leukocytosis Walter Madera Feb 20, 2019 15:38
--- NOTE | 2019-02-20 16:00 | NUR ---
NURSE NOTES: No change in pt's condition,stable during the shift,tracheal secretions suctioned frequently ,remains congested.
[2019-02-20] MEDS: D5NS 1,000 ML IV SCH (17:46)
--- NOTE | 2019-02-20 19:09 | NUR ---
HAND-OFF: Report given Darian Marcano RN .
--- NOTE | 2019-02-20 19:10 | NUR ---
NURSE NOTES: Received patient from Neeta Shaw RN. Will continue plan of care.
[2019-02-20] MEDS: Dyna-Hex 2% Top Sol 2oz TOPIC SCH (20:12)
--- NOTE | 2019-02-20 20:30 | NUR ---
NURSE NOTES: Patient is stable. On T-piece Shiley 6 xlt on 30% and saturating well at 100%. G-Tube flushed and patent running Glucerna 1.5 @ 35ml/hr. Purewick is suction well. Turned and repositioned. Daughter was at bedside.
--- NOTE | 2019-02-20 20:59 | Pulmonology Progress Note ---
Assessment/Plan Assessment/Plan Impression: Sepsis syndrome Pneumonia VDRF, Trach, G tube, Hypertension, Cardiac disease, Dementia, Previous CVA, Seizure disorder, Respiratory failure with hypoxia Anemia Sacral ulcer renal cyst pulmonary congestion Plan respiratory care noted mucomyst and duoneb SNF meds as is off vent and support as needed Oxygen as needed Monitor labs for change and recommend changes noted and reviewed feeds elevate head aspiration precautions Patient is a DNR. No CPR. ICU care reviewed medications/laboratory data/nursing notes/ICU care reviewed in detail note reviewed and edited care discussed with RN and RT ICU time spent 40 minutes Subjective ROS Limited/Unobtainable: Yes Allergies: Coded Allergies: CODEINE (Verified Allergy, Unknown, HIVES, 09/15/09) Subjective respiratory care noted congestion- persistent and worsened ICU care reviewed supportive care noted and reviewed RT care reviewed overnight care noted findings reviewed and discussed in detail Objective Last 24 Hour Vital Signs Date Time Temp Pulse Resp B/P (MAP) Pulse Ox O2 Delivery O2 Flow Rate FiO2 02/20/19 20:12 82 155/61 02/20/19 20:00 10.0 30 02/20/19 19:06 77 24 167/67 (100) 100 02/20/19 18:47 76 20 100 T-Piece 8.0 30 77 20 100 02/20/19 18:46 100 T-Piece 8.0 30 02/20/19 18:00 98.0 79 23 148/66 (93) 100 02/20/19 17:00 77 25 148/60 (89) 100 02/20/19 16:00 69 02/20/19 16:00 10.0 30 02/20/19 16:00 68 23 141/64 (89) 99 02/20/19 15:28 68 21 100 T-Piece 8.0 30 69 23 100 02/20/19 15:00 85 24 149/60 (89) 99 02/20/19 14:00 72 23 140/57 (84) 100 02/20/19 13:05 98 T-Piece 8.0 30 02/20/19 13:00 69 25 140/52 (81) 100 02/20/19 12:00 97.8 89 26 114/48 (70) 100 02/20/19 12:00 10.0 30 02/20/19 12:00 89 26 114/48 (70) 100 02/20/19 12:00 70 02/20/19 11:10 71 23 100 T-Piece 8.0 30 72 24 98 02/20/19 11:00 73 24 146/76 (99) 100 02/20/19 10:00 75 24 133/56 (81) 97 02/20/19 09:00 76 24 143/58 (86) 100 02/20/19 08:53 78 152/73 02/20/19 08:00 73 02/20/19 08:00 98.2 78 24 152/73 (99) 100 02/20/19 08:00 10.0 30 02/20/19 07:33 78 23 100 T-Piece 8.0 30 77 25 99 02/20/19 07:18 99 T-Piece 8.0 30 02/20/19 07:00 78 25 159/75 (103) 99 02/20/19 06:00 77 26 132/56 (81) 97 02/20/19 05:00 81 26 152/73 (99) 100 02/20/19 04:00 98.4 86 24 159/75 (103) 100 02/20/19 04:00 T-piece 10.0 02/20/19 04:00 10.0 30 02/20/19 04:00 82 02/20/19 03:00 73 16 117/42 (67) 95 02/20/19 02:13 78 20 100 T-Piece 8.0 30 76 20 100 02/20/19 02:00 76 28 135/57 (83) 99 02/20/19 01:21 100 T-Piece 8.0 30 02/20/19 01:00 80 13 151/64 (93) 98 02/20/19 00:00 10.0 30 02/20/19 00:00 80 02/20/19 00:00 99.0 79 9 146/60 (88) 97 02/20/19 00:00 T-piece 10.0 02/19/19 23:00 80 22 134/48 (76) 97 02/19/19 22:26 79 20 100 T-Piece 8.0 30 77 20 100 02/19/19 22:00 79 2 140/50 (80) 99 02/19/19 21:00 80 33 140/51 (80) 98 Intake and Output 02/19/19 02/20/19 19:00 07:00 Intake Total 970 ml 985 ml Output Total 210 ml 600 ml Balance 760 ml 385 ml IV Total 550 ml 600 ml Tube Feeding 420 ml 385 ml Output Urine Total 210 ml 600 ml # Bowel Movements 2 Objective WDWN NAD contracted off vent reduced breath sounds bilaterally with some rhonchi overall; no wheeze [id number] without MRG NABS nontender no HSM no CC minimal nonfocal nonverbal trach and gt reviewed and edited Laboratory Tests 02/20/19 08:01: White Blood Count 8.7, Red Blood Count 3.17L, Hemoglobin 8.5L, Hematocrit 26.9L , Mean Corpuscular Volume 85, Mean Corpuscular Hemoglobin 26.9L, Mean Corpuscular Hemoglobin Concent 31.7L, Red Cell Distribution Width 16.2H, Platelet Count 324, Mean Platelet Volume 4.5L, Neutrophils (%) (Auto) 62.7, Lymphocytes (%) (Auto) 25.9, Monocytes (%) (Auto) 6.4, Eosinophils (%) (Auto) 4.1H, Basophils (%) (Auto) 0.8, Sodium Level 142, Potassium Level 4.0, Chloride Level 109H, Carbon Dioxide Level 35H, Anion Gap -2L, Blood Urea Nitrogen 16, Creatinine 1.1, Estimat Glomerular Filtration Rate , Glucose Level 108#H, Calcium Level 8.1L, Total Bilirubin 0.2, Aspartate Amino Transf (AST/SGOT) 19, Alanine Aminotransferase (ALT/SGPT) 16, Alkaline Phosphatase 146H, Total Protein 7.4, Albumin 2.1L, Globulin 5.3, Albumin/Globulin Ratio 0.4L Current Medications Medications (Trade) Dose Ordered Sig/Maicol Route PRN Reason Start Time Stop Time Status Last Admin Dose Admin Acetaminophen (Tylenol) 650 mg Q4H PRN GT Mild Pain/Temp > 100.5 02/18/19 05:44 03/05/19 05:43 Acetylcysteine (Mucomyst) 100 mg Q4HRT HHN 02/18/19 07:00 03/03/19 12:59 02/20/19 18:44 Albuterol/ Ipratropium (Albuterol/ Ipratropium) 3 ml Q4H PRN HHN Shortness of Breath 02/18/19 05:45 02/22/19 05:44 02/20/19 18:44 Amikacin Sulfate (Amikin) 500 mg Q12HR@10,22 INH 02/20/19 22:00 02/27/19 21:59 Ascorbic Acid (Vitamin C) 250 mg DAILY GT 02/18/19 09:00 02/24/19 08:59 02/20/19 08:53 Atropine Sulfate (Atropine Opth Adriana) 1 drop TID SL 02/18/19 09:00 03/12/19 09:29 02/20/19 17:49 Bisacodyl (Dulcolax) 10 mg PRN PRN RECTAL Constipation 02/18/19 05:30 02/23/19 05:29 Chlorhexidine Gluconate (Cesilia-Hex 2%) 1 applic DAILY@1999 TOPIC 02/18/19 20:00 03/12/19 19:59 02/20/19 20:12 Dextrose/Sodium Chloride 1,000 ml @ 50 mls/hr Q20H IV 02/18/19 06:00 03/19/19 05:59 02/20/19 17:46 Heparin Sodium (Porcine) (Heparin 5000 units/ml) 5,000 units EVERY 12 HOURS SUBQ 02/18/19 09:00 03/16/19 23:14 02/20/19 20:14 Hydralazine HCl (Apresoline) 25 mg Q4H PRN GT SBP above 160 02/18/19 05:46 03/09/19 05:45 Levetiracetam (Keppra) 750 mg Q12HR GT 02/18/19 09:00 03/16/19 23:29 02/20/19 20:13 Metoclopramide HCl (Reglan) 10 mg Q6H PRN IVP Nausea & Vomiting 02/18/19 05:46 03/09/19 05:45 Metoprolol Tartrate (Lopressor) 25 mg Q12HR GT 02/18/19 09:00 03/16/19 23:29 02/20/19 20:12 Ondansetron HCl (Zofran) 4 mg Q6H PRN GT Nausea & Vomiting 02/18/19 05:46 02/23/19 05:45 Pantoprazole (Protonix) 40 mg Q12HR IVP 02/18/19 09:00 03/16/19 23:29 02/20/19 20:13 Amaury Chan MD Feb 20, 2019 20:59
--- NOTE | 2019-02-20 21:07 | General Progress Note ---
Assessment/Plan Status: stable, progressing Assessment/Plan: Assessment - N/V, periodic - suspect due to gastroparesis - will hold off on G to J conversion per daughter request - Elevated Alk phos / LFT - CT negative - abd U/S negative - check hepatitis serologies - negative - Anemia with OB (-) stools - Resp failure, s/p Trach - dysphagia, s/p PEG - OBS - poor Px Recommendations - laxative PRN - continue TF - aspiration precautions - elevate HOB - PPI - Elevate HOB Subjective Allergies: Coded Allergies: CODEINE (Verified Allergy, Unknown, HIVES, 09/15/09) Subjective Seen earlier today in ICU d/w RN tolerating TF no vomiting on T-piece for breathing Objective Last 24 Hour Vital Signs Date Time Temp Pulse Resp B/P (MAP) Pulse Ox O2 Delivery O2 Flow Rate FiO2 02/20/19 20:12 82 155/61 02/20/19 20:00 10.0 30 02/20/19 19:06 77 24 167/67 (100) 100 02/20/19 18:47 76 20 100 T-Piece 8.0 30 77 20 100 02/20/19 18:46 100 T-Piece 8.0 30 02/20/19 18:00 98.0 79 23 148/66 (93) 100 02/20/19 17:00 77 25 148/60 (89) 100 02/20/19 16:00 69 02/20/19 16:00 10.0 30 02/20/19 16:00 68 23 141/64 (89) 99 02/20/19 15:28 68 21 100 T-Piece 8.0 30 69 23 100 02/20/19 15:00 85 24 149/60 (89) 99 02/20/19 14:00 72 23 140/57 (84) 100 02/20/19 13:05 98 T-Piece 8.0 30 02/20/19 13:00 69 25 140/52 (81) 100 02/20/19 12:00 97.8 89 26 114/48 (70) 100 02/20/19 12:00 10.0 30 02/20/19 12:00 89 26 114/48 (70) 100 02/20/19 12:00 70 02/20/19 11:10 71 23 100 T-Piece 8.0 30 72 24 98 02/20/19 11:00 73 24 146/76 (99) 100 02/20/19 10:00 75 24 133/56 (81) 97 02/20/19 09:00 76 24 143/58 (86) 100 02/20/19 08:53 78 152/73 02/20/19 08:00 73 02/20/19 08:00 98.2 78 24 152/73 (99) 100 02/20/19 08:00 10.0 30 02/20/19 07:33 78 23 100 T-Piece 8.0 30 77 25 99 02/20/19 07:18 99 T-Piece 8.0 30 02/20/19 07:00 78 25 159/75 (103) 99 02/20/19 06:00 77 26 132/56 (81) 97 02/20/19 05:00 81 26 152/73 (99) 100 02/20/19 04:00 98.4 86 24 159/75 (103) 100 02/20/19 04:00 T-piece 10.0 02/20/19 04:00 10.0 30 02/20/19 04:00 82 02/20/19 03:00 73 16 117/42 (67) 95 02/20/19 02:13 78 20 100 T-Piece 8.0 30 76 20 100 02/20/19 02:00 76 28 135/57 (83) 99 02/20/19 01:21 100 T-Piece 8.0 30 02/20/19 01:00 80 13 151/64 (93) 98 02/20/19 00:00 10.0 30 02/20/19 00:00 80 02/20/19 00:00 99.0 79 9 146/60 (88) 97 02/20/19 00:00 T-piece 10.0 02/19/19 23:00 80 22 134/48 (76) 97 02/19/19 22:26 79 20 100 T-Piece 8.0 30 77 20 100 02/19/19 22:00 79 2 140/50 (80) 99 Intake and Output 02/19/19 02/20/19 19:00 07:00 Intake Total 970 ml 985 ml Output Total 210 ml 600 ml Balance 760 ml 385 ml IV Total 550 ml 600 ml Tube Feeding 420 ml 385 ml Output Urine Total 210 ml 600 ml # Bowel Movements 2 Laboratory Tests 11/22/19 08:01: White Blood Count 8.7, Red Blood Count 3.17L, Hemoglobin 8.5L, Hematocrit 26.9L , Mean Corpuscular Volume 85, Mean Corpuscular Hemoglobin 26.9L, Mean Corpuscular Hemoglobin Concent 31.7L, Red Cell Distribution Width 16.2H, Platelet Count 324, Mean Platelet Volume 4.5L, Neutrophils (%) (Auto) 62.7, Lymphocytes (%) (Auto) 25.9, Monocytes (%) (Auto) 6.4, Eosinophils (%) (Auto) 4.1H, Basophils (%) (Auto) 0.8, Sodium Level 142, Potassium Level 4.0, Chloride Level 109H, Carbon Dioxide Level 35H, Anion Gap -2L, Blood Urea Nitrogen 16, Creatinine 1.1, Estimat Glomerular Filtration Rate , Glucose Level 108#H, Calcium Level 8.1L, Total Bilirubin 0.2, Aspartate Amino Transf (AST/SGOT) 19, Alanine Aminotransferase (ALT/SGPT) 16, Alkaline Phosphatase 146H, Total Protein 7.4, Albumin 2.1L, Globulin 5.3, Albumin/Globulin Ratio 0.4L Height (Feet): 5 Height (Inches): 5.00 Weight (Pounds): 180 Objective Debilitated AA woman NCAT (+) trach coarse ronchi RR obese abd, (+) GT no edema Celio Vaughan MD Feb 20, 2019 21:07
--- NOTE | 2019-02-20 22:00 | NUR ---
NURSE NOTES: Patient if sleeping comfortably. Suctioning provided. Turned and repositioned.
[2019-02-20] MEDS: Amikacin for Inhalation 2ML INH SCH (22:58)
--- NOTE | 2019-02-20 23:01 | Progress Note ---
DATE: 02/20/2019 CARDIOLOGY PROGRESS NOTE SUBJECTIVE: The patient continues on episodic ventilator support by normal T-tube, less congestion, moderate secretions noted, tolerating G-tube feedings. OBJECTIVE: VITAL SIGNS: Blood pressure 152/73, pulse 81, respirations 26, sinus rhythm. LUNGS: Bilateral rhonchi. CARDIAC: Regular rhythm and rate. Normal S1, S2. ABDOMEN: Soft. G-tube intact. EXTREMITIES: Dependent edema. LABORATORY DATA: Sputum culture is notable for carbapenem-resistant pneumonia. White count 8.7, hemoglobin 8.5. Potassium 4, BUN 16, creatinine 1.1. Albumin 2.1. IMPRESSION: 1. Respiratory failure. 2. Healthcare-acquired pneumonia. 3. Sepsis. 4. Acute on chronic diastolic congestive heart failure. 5. Advanced dementia. PLAN: 1. Antimicrobials. 2. Respiratory hygiene. 3. Periodic diuresis. 4. Skin care. 5. DVT and stress ulcer prophylaxis. 6. Nutrition by feeding tube. 7. Trend natriuretic peptide. Bg Hagen M.D. DR: SHIRA JOB#: [id number] CC:
[2019-02-21] VITALS (24 sets, daily range): BP systolic 108–180; BP diastolic 51–80
--- NOTE | 2019-02-21 | NUR ---
NURSE NOTES: Patient is stable. Suctioning provided. RT at bedside for treatments, daughter is present.
--- NOTE | 2019-02-21 02:00 | NUR ---
NURSE NOTES: Frequent suctioning provided. Patient is stable. GTube aspirated with no residual and flushed with 30ml h2o; is patent.
[2019-02-21] MEDS: Albuterol/Ipratropium 3ml neb HHN PRN ×6 (03:34→23:22)
--- NOTE | 2019-02-21 04:00 | NUR ---
NURSE NOTES: Patient is stable. Bed bath, oral care, suctioning, wound care/dressing change, linens changed, PICC dressing change provided. Turned and repositioned.
[2019-02-21 05:50] LABS: BASOPHILS % (AUTO) 0.9 % (0.0-2.0); EOSINOPHILS % (AUTO) 4.2 % (0.0-3.0); HEMOGLOBIN 9.2 G/DL (12.0-16.0); LYMPHOCYTES % (AUTO) 29.4 % (20.0-45.0); MEAN CORPUSCULAR VOLUME 85 FL (80-99); MONOCYTES % (AUTO) 4.9 % (1.0-10.0); NEUTROPHILS % (AUTO) 60.5 % (45.0-75.0); PLATELET COUNT 333 K/UL (150-450); RED BLOOD COUNT 3.42 M/UL (4.20-5.40); RED CELL DISTRIBUTION WIDTH 16.2 % (11.6-14.8); WHITE BLOOD COUNT 9.1 K/UL (4.8-10.8)
--- NOTE | 2019-02-21 06:00 | NUR ---
NURSE NOTES: Patient is stable. Suctioning provided frequently. Turned and repositioned.
[2019-02-21 06:19] LABS: ALANINE AMINOTRANSFERASE 18 U/L (12-78); ALBUMIN 2.2 G/DL (3.4-5.0); ALBUMIN/GLOBULIN RATIO 0.4 (1.0-2.7); ALKALINE PHOSPHATASE 145 U/L (46-116); ANION GAP 1 mmol/L (5-15); ASPARTATE AMINO TRANSFERASE 21 U/L (15-37); BILIRUBIN,TOTAL 0.2 MG/DL (0.2-1.0); BLOOD UREA NITROGEN 15 mg/dL (7-18); CALCIUM 8.4 MG/DL (8.5-10.1); CARBON DIOXIDE 33 MMOL/L (21-32); CHLORIDE 107 MMOL/L (98-107); POTASSIUM 4.4 MMOL/L (3.5-5.1); SODIUM 141 MMOL/L (136-145)
--- NOTE | 2019-02-21 07:16 | NUR ---
HAND-OFF: Report given to JEANNINE Rodriguez.
--- NOTE | 2019-02-21 07:36 | General Progress Note ---
Assessment/Plan Status: stable, progressing Assessment/Plan: Assessment/Plan Status: stable, progressing Assessment/Plan: Assessment - N/V, periodic - suspect due to gastroparesis - will hold off on G to J conversion per daughter request - Elevated Alk phos / LFT - CT negative - abd U/S negative - check hepatitis serologies - negative - Anemia with OB (-) stools - Resp failure, s/p Trach - dysphagia, s/p PEG - OBS - poor Px Recommendations - laxative PRN - continue TF - aspiration precautions - elevate HOB - PPI - Elevate HOB Subjective ROS Limited/Unobtainable: No Allergies: Coded Allergies: CODEINE (Verified Allergy, Unknown, HIVES, 09/15/09) Objective Last 24 Hour Vital Signs Date Time Temp Pulse Resp B/P (MAP) Pulse Ox O2 Delivery O2 Flow Rate FiO2 02/21/19 07:05 100 T-Piece 8.0 30 02/21/19 07:05 76 22 100 T-Piece 8.0 30 70 18 100 02/21/19 07:00 69 21 152/71 (98) 100 02/21/19 06:00 76 24 117/51 (73) 99 02/21/19 05:00 77 22 149/69 (95) 100 02/21/19 04:00 10.0 30 02/21/19 04:00 98.2 74 22 153/71 (98) 100 02/21/19 04:00 T-piece 10.0 02/21/19 03:35 71 20 100 T-Piece 8.0 30 69 20 100 02/21/19 03:02 78 02/21/19 03:00 74 22 180/68 (105) 100 02/21/19 02:00 73 24 137/58 (84) 100 02/21/19 01:04 100 T-Piece 8.0 30 02/21/19 01:00 74 28 141/51 (81) 100 02/21/19 00:00 T-piece 10.0 02/21/19 00:00 98.5 74 28 108/68 (81) 100 02/20/19 23:28 74 20 100 T-Piece 8.0 30 02/20/19 23:10 77 20 100 T-Piece 8.0 30 02/20/19 23:00 72 144/60 (88) 100 02/20/19 22:59 72 20 100 T-Piece 8.0 30 72 20 100 02/20/19 22:57 72 02/20/19 22:00 77 147/56 (86) 100 02/20/19 21:00 78 142/53 (82) 100 02/20/19 20:12 82 155/61 02/20/19 20:00 T-piece 10.0 02/20/19 20:00 10.0 30 02/20/19 20:00 98.2 78 155/61 (92) 100 02/20/19 19:44 79 02/20/19 19:06 77 24 167/67 (100) 100 02/20/19 18:47 76 20 100 T-Piece 8.0 30 77 20 100 02/20/19 18:46 100 T-Piece 8.0 30 02/20/19 18:00 98.0 79 23 148/66 (93) 100 02/20/19 17:00 77 25 148/60 (89) 100 02/20/19 16:00 69 02/20/19 16:00 10.0 30 02/20/19 16:00 68 23 141/64 (89) 99 02/20/19 15:28 68 21 100 T-Piece 8.0 30 69 23 100 02/20/19 15:00 85 24 149/60 (89) 99 02/20/19 14:00 72 23 140/57 (84) 100 02/20/19 13:05 98 T-Piece 8.0 30 02/20/19 13:00 69 25 140/52 (81) 100 02/20/19 12:00 97.8 89 26 114/48 (70) 100 02/20/19 12:00 10.0 30 02/20/19 12:00 89 26 114/48 (70) 100 02/20/19 12:00 70 02/20/19 11:10 71 23 100 T-Piece 8.0 30 72 24 98 02/20/19 11:00 73 24 146/76 (99) 100 02/20/19 10:00 75 24 133/56 (81) 97 02/20/19 09:00 76 24 143/58 (86) 100 02/20/19 08:53 78 152/73 02/20/19 08:00 73 02/20/19 08:00 98.2 78 24 152/73 (99) 100 02/20/19 08:00 10.0 30 Intake and Output 02/20/19 02/21/19 18:59 06:59 Intake Total 1205 ml 1140 ml Output Total 3 ml 750 ml Balance 1202 ml 390 ml Free Water 200 ml 30 ml IV Total 450 ml 600 ml Tube Feeding 455 ml 420 ml Blood Product 30 ml Other 100 ml 60 ml Output Urine Total 2 ml 750 ml Stool Total 1 ml # Bowel Movements 2 Laboratory Tests 02/20/19 08:01: White Blood Count 8.7, Red Blood Count 3.17L, Hemoglobin 8.5L, Hematocrit 26.9L , Mean Corpuscular Volume 85, Mean Corpuscular Hemoglobin 26.9L, Mean Corpuscular Hemoglobin Concent 31.7L, Red Cell Distribution Width 16.2H, Platelet Count 324, Mean Platelet Volume 4.5L, Neutrophils (%) (Auto) 62.7, Lymphocytes (%) (Auto) 25.9, Monocytes (%) (Auto) 6.4, Eosinophils (%) (Auto) 4.1H, Basophils (%) (Auto) 0.8, Sodium Level 142, Potassium Level 4.0, Chloride Level 109H, Carbon Dioxide Level 35H, Anion Gap -2L, Blood Urea Nitrogen 16, Creatinine 1.1, Estimat Glomerular Filtration Rate , Glucose Level 108#H, Calcium Level 8.1L, Total Bilirubin 0.2, Aspartate Amino Transf (AST/SGOT) 19, Alanine Aminotransferase (ALT/SGPT) 16, Alkaline Phosphatase 146H, Total Protein 7.4, Albumin 2.1L, Globulin 5.3, Albumin/Globulin Ratio 0.4L 02/21/19 04:00: White Blood Count 9.1, Red Blood Count 3.42L, Hemoglobin 9.2L, Hematocrit 29.0L , Mean Corpuscular Volume 85, Mean Corpuscular Hemoglobin 27.0, Mean Corpuscular Hemoglobin Concent 31.8L, Red Cell Distribution Width 16.2H, Platelet Count 333, Mean Platelet Volume 4.6L, Neutrophils (%) (Auto) 60.5, Lymphocytes (%) (Auto) 29.4, Monocytes (%) (Auto) 4.9, Eosinophils (%) (Auto) 4.2H, Basophils (%) (Auto) 0.9, Sodium Level 141, Potassium Level 4.4, Chloride Level 107, Carbon Dioxide Level 33H, Anion Gap 1L, Blood Urea Nitrogen 15, Creatinine 1.0, Estimat Glomerular Filtration Rate , Glucose Level 83, Calcium Level 8.4L, Total Bilirubin 0.2, Aspartate Amino Transf (AST/SGOT) 21, Alanine Aminotransferase (ALT/SGPT) 18, Alkaline Phosphatase 145H, Total Protein 7.8, Albumin 2.2L, Globulin 5.6, Albumin/Globulin Ratio 0.4L, Magnesium Level 1.6L, Pro-B-Type Natriuretic Peptide 1082H Height (Feet): 5 Height (Inches): 5.00 Weight (Pounds): 180 General Appearance: no apparent distress EENT: normal ENT inspection Neck: supple Cardiovascular: normal rate Respiratory/Chest: decreased breath sounds Abdomen: normal bowel sounds, non tender, soft Extremities: non-tender Gary Guzman MD Feb 21, 2019 07:36
--- NOTE | 2019-02-21 08:00 | NUR ---
NURSE NOTES: Received change of shift report from [place] PAEZ. Pt has eyes closed, does not response to name/voice or light touch, however is responsive to pain. Pt has trach, Shiley 6 XLT attached to T-piece with FIO2 30%, at 100% FIO2. Bilateral inspiratory/expiratory rales/rhonchi is heard on auscultation. playground monitor displays NSR with heart rate currently in the 70's with weak peripheral pulses on palpation, and generalized/peripheral edema noted. Pt has right upper arm double lumen PICC, intact/patent, with IV fluid D5NS infusing at 50ml/hour. Abdomen is large, round, soft, nontender to touch with hypoactive bowel sounds. Pt has GT with feeding Glucerna 1.5 infusing at goal rate of 35ml/hour with no residual. External/female catheter is in place, draining mildly cloudy/yellow urine. Pt has bilateral extremity contractures. Skin has sacral/buttocks pressure wound, and left hand opened/blister, areas covered with optifoam and sterlix/gauze dressings. Pt is on pressure releasing mattress. Head of bed is at 30 degrees, with three side rails up, bed in lowest position/locked, and call light within reach. Will continue to monitor and follow plan of care.
[2019-02-21] MEDS: levETIRAcetam 500mg/5ml Liquid GT SCH ×2 (08:45→20:32)
[2019-02-21] MEDS: Ascorbic Acid 500mg tab GT SCH (08:46)
[2019-02-21] MEDS: Pantoprazole Inj IVP SCH ×2 (08:46→20:32)
[2019-02-21] MEDS: Heparin 5000 units/ml inj SUBQ SCH ×2 (08:48→20:34)
--- NOTE | 2019-02-21 09:00 | NUR ---
NURSE NOTES: AM meds are administered. Oral care is done and pt suctioned. Pt has large amounts of white/clear secretions via ET/oral route when suctioned. T-piece is connected to oxygen with cool aerosol mist, O2sat remains at 98-100%. Pt was repositioned with extremities elevated on pillows.
[2019-02-21] MEDS: D5NS 1,000 ML IV SCH (09:04)
--- NOTE | 2019-02-21 09:07 | Pulmonology Progress Note ---
Assessment/Plan Assessment/Plan Impression: Sepsis syndrome Pneumonia VDRF, Trach, G tube, Hypertension, Cardiac disease, Dementia, Previous CVA, Seizure disorder, Respiratory failure with hypoxia Anemia Sacral ulcer renal cyst pulmonary congestion Plan respiratory care to continue neb therapy SNF meds as is off vent as able Oxygen as needed Monitor labs daily changes noted and reviewed feeds as tolerated monitor albumin levels elevate head aspiration precautions Patient is a DNR. No CPR. ICU care reviewed medications/laboratory data/nursing notes/ICU care reviewed in detail note reviewed and edited care discussed with RN and RT ICU time spent 38 minutes Subjective ROS Limited/Unobtainable: Yes Allergies: Coded Allergies: CODEINE (Verified Allergy, Unknown, HIVES, 09/15/09) Subjective respiratory care noted congestion- still requires active suctioning ICU care reviewed supportive care noted and reviewed RT care reviewed overnight care noted findings reviewed and discussed in detail Objective Last 24 Hour Vital Signs Date Time Temp Pulse Resp B/P (MAP) Pulse Ox O2 Delivery O2 Flow Rate FiO2 02/21/19 08:47 76 152/71 02/21/19 07:05 100 T-Piece 8.0 30 02/21/19 07:05 76 22 100 T-Piece 8.0 30 70 18 100 02/21/19 07:00 69 21 152/71 (98) 100 02/21/19 06:00 76 24 117/51 (73) 99 02/21/19 05:00 77 22 149/69 (95) 100 02/21/19 04:00 10.0 30 02/21/19 04:00 98.2 74 22 153/71 (98) 100 02/21/19 04:00 T-piece 10.0 02/21/19 03:35 71 20 100 T-Piece 8.0 30 69 20 100 02/21/19 03:02 78 02/21/19 03:00 74 22 180/68 (105) 100 02/21/19 02:00 73 24 137/58 (84) 100 02/21/19 01:04 100 T-Piece 8.0 30 02/21/19 01:00 74 28 141/51 (81) 100 02/21/19 00:00 T-piece 10.0 02/21/19 00:00 98.5 74 28 108/68 (81) 100 02/20/19 23:28 74 20 100 T-Piece 8.0 30 02/20/19 23:10 77 20 100 T-Piece 8.0 30 02/20/19 23:00 72 144/60 (88) 100 02/20/19 22:59 72 20 100 T-Piece 8.0 30 72 20 100 02/20/19 22:57 72 02/20/19 22:00 77 147/56 (86) 100 02/20/19 21:00 78 142/53 (82) 100 02/20/19 20:12 82 155/61 02/20/19 20:00 T-piece 10.0 02/20/19 20:00 10.0 30 02/20/19 20:00 98.2 78 155/61 (92) 100 02/20/19 19:44 79 02/20/19 19:06 77 24 167/67 (100) 100 02/20/19 18:47 76 20 100 T-Piece 8.0 30 77 20 100 02/20/19 18:46 100 T-Piece 8.0 30 02/20/19 18:00 98.0 79 23 148/66 (93) 100 02/20/19 17:00 77 25 148/60 (89) 100 02/20/19 16:00 69 02/20/19 16:00 10.0 30 02/20/19 16:00 68 23 141/64 (89) 99 02/20/19 15:28 68 21 100 T-Piece 8.0 30 69 23 100 02/20/19 15:00 85 24 149/60 (89) 99 02/20/19 14:00 72 23 140/57 (84) 100 02/20/19 13:05 98 T-Piece 8.0 30 02/20/19 13:00 69 25 140/52 (81) 100 02/20/19 12:00 97.8 89 26 114/48 (70) 100 02/20/19 12:00 10.0 30 02/20/19 12:00 89 26 114/48 (70) 100 02/20/19 12:00 70 02/20/19 11:10 71 23 100 T-Piece 8.0 30 72 24 98 02/20/19 11:00 73 24 146/76 (99) 100 02/20/19 10:00 75 24 133/56 (81) 97 11/22/19 09:00 76 24 143/58 (86) 100 Intake and Output 02/20/19 02/21/19 18:59 06:59 Intake Total 1205 ml 1140 ml Output Total 3 ml 750 ml Balance 1202 ml 390 ml Free Water 200 ml 30 ml IV Total 450 ml 600 ml Tube Feeding 455 ml 420 ml Blood Product 30 ml Other 100 ml 60 ml Output Urine Total 2 ml 750 ml Stool Total 1 ml # Bowel Movements 2 Objective WDWN NAD contracted off vent reduced breath sounds bilaterally with some rhonchi overall; no wheeze [id number] without MRG NABS nontender no HSM no CC minimal nonfocal nonverbal trach and gt reviewed and edited Laboratory Tests 02/21/19 04:00: White Blood Count 9.1, Red Blood Count 3.42L, Hemoglobin 9.2L, Hematocrit 29.0L , Mean Corpuscular Volume 85, Mean Corpuscular Hemoglobin 27.0, Mean Corpuscular Hemoglobin Concent 31.8L, Red Cell Distribution Width 16.2H, Platelet Count 333, Mean Platelet Volume 4.6L, Neutrophils (%) (Auto) 60.5, Lymphocytes (%) (Auto) 29.4, Monocytes (%) (Auto) 4.9, Eosinophils (%) (Auto) 4.2H, Basophils (%) (Auto) 0.9, Sodium Level 141, Potassium Level 4.4, Chloride Level 107, Carbon Dioxide Level 33H, Anion Gap 1L, Blood Urea Nitrogen 15, Creatinine 1.0, Estimat Glomerular Filtration Rate , Glucose Level 83, Calcium Level 8.4L, Magnesium Level 1.6L, Total Bilirubin 0.2, Aspartate Amino Transf ( AST/SGOT) 21, Alanine Aminotransferase (ALT/SGPT) 18, Alkaline Phosphatase 145H , Pro-B-Type Natriuretic Peptide 1082H, Total Protein 7.8, Albumin 2.2L, Globulin 5.6, Albumin/Globulin Ratio 0.4L Current Medications Medications (Trade) Dose Ordered Sig/Maiocl Route PRN Reason Start Time Stop Time Status Last Admin Dose Admin Acetaminophen (Tylenol) 650 mg Q4H PRN GT Mild Pain/Temp > 100.5 02/18/19 05:44 03/05/19 05:43 Acetylcysteine (Mucomyst) 100 mg Q4HRT HHN 02/18/19 07:00 03/03/19 12:59 02/21/19 07:05 Albuterol/ Ipratropium (Albuterol/ Ipratropium) 3 ml Q4H PRN HHN Shortness of Breath 02/18/19 05:45 02/22/19 05:44 02/21/19 07:02 Amikacin Sulfate (Amikin) 500 mg Q12HR@10,22 INH 02/20/19 22:00 02/27/19 21:59 02/20/19 22:58 Ascorbic Acid (Vitamin C) 250 mg DAILY GT 02/18/19 09:00 02/24/19 08:59 02/21/19 08:46 Atropine Sulfate (Atropine Opth Adriana) 1 drop TID SL 02/18/19 09:00 03/12/19 09:29 02/20/19 17:49 Bisacodyl (Dulcolax) 10 mg PRN PRN RECTAL Constipation 02/18/19 05:30 02/23/19 05:29 Chlorhexidine Gluconate (Cesilia-Hex 2%) 1 applic DAILY@1999 TOPIC 02/18/19 20:00 03/12/19 19:59 02/20/19 20:12 Dextrose/Sodium Chloride 1,000 ml @ 50 mls/hr Q20H IV 02/18/19 06:00 03/19/19 05:59 02/20/19 17:46 Heparin Sodium (Porcine) (Heparin 5000 units/ml) 5,000 units EVERY 12 HOURS SUBQ 02/18/19 09:00 03/16/19 23:14 02/21/19 08:48 Hydralazine HCl (Apresoline) 25 mg Q4H PRN GT SBP above 160 02/18/19 05:46 03/09/19 05:45 Levetiracetam (Keppra) 750 mg Q12HR GT 02/18/19 09:00 03/16/19 23:29 02/21/19 08:45 Magnesium Sulfate 100 ml @ 100 mls/hr Q1H IVPB 02/21/19 08:00 02/21/19 11:59 02/21/19 08:45 Metoclopramide HCl (Reglan) 10 mg Q6H PRN IVP Nausea & Vomiting 02/18/19 05:46 03/09/19 05:45 Metoprolol Tartrate (Lopressor) 25 mg Q12HR GT 02/18/19 09:00 03/16/19 23:29 02/21/19 08:47 Ondansetron HCl (Zofran) 4 mg Q6H PRN GT Nausea & Vomiting 02/18/19 05:46 02/23/19 05:45 Pantoprazole (Protonix) 40 mg Q12HR IVP 02/18/19 09:00 03/16/19 23:29 02/21/19 08:46 Amaury Chan MD Feb 21, 2019 09:07
[2019-02-21] MEDS: Amikacin for Inhalation 2ML INH SCH ×2 (09:34→21:28)
--- NOTE | 2019-02-21 10:00 | NUR ---
NURSE NOTES: Pt is being administered Mag IV total 4gm per MD order to replace Mag level of 1.6. VS remain stable. Pt was suctioned via trach/and orally, with output of moderate amount of white/clear thin secretions. No signs/symptoms of pain or discomfort is noted at this time.
[2019-02-21] MEDS ORDERED: Sterile Water Irrig 1000ml IRRIG ONE ×2 (10:02→10:24)
[2019-02-21] MEDS ORDERED: D5NS 1000ml IV ONE ×2 (10:02→10:24)
--- NOTE | 2019-02-21 10:49 | Infectious Diseases Prog Note ---
"Assessment/Plan Assessment/Plan antibiotics : inhaled amikacin A 1. UTI with proteus s/p rx 2. respiratory failure 3. hypertension 4. CVA 5. dementia 6. sacral decubitus ulcer 7. rectal VRE colonization 8. klebsiella | providencia pneumonia 9. renal failure resolved P 1. continue inhaled amikacin 5 more days 2. will follow up cultures Subjective ROS Limited/Unobtainable: Yes Allergies: Coded Allergies: CODEINE (Verified Allergy, Unknown, HIVES, 09/15/09) Objective Vital Signs Last 24 Hour Vital Signs Date Time Temp Pulse Resp B/P (MAP) Pulse Ox O2 Delivery O2 Flow Rate FiO2 02/21/19 10:00 76 22 138/59 (85) 100 02/21/19 09:35 73 20 100 T-Piece 8.0 30 76 24 100 02/21/19 09:00 84 20 155/70 (98) 97 02/21/19 08:47 76 152/71 02/21/19 08:00 T-piece 10.0 02/21/19 08:00 10.0 30 02/21/19 08:00 98.2 74 23 150/52 (84) 100 02/21/19 08:00 77 02/21/19 07:05 100 T-Piece 8.0 30 02/21/19 07:05 76 22 100 T-Piece 8.0 30 70 18 100 02/21/19 07:00 69 21 152/71 (98) 100 02/21/19 06:00 76 24 117/51 (73) 99 02/21/19 05:00 77 22 149/69 (95) 100 02/21/19 04:00 10.0 30 02/21/19 04:00 98.2 74 22 153/71 (98) 100 02/21/19 04:00 T-piece 10.0 02/21/19 03:35 71 20 100 T-Piece 8.0 30 69 20 100 02/21/19 03:02 78 02/21/19 03:00 74 22 180/68 (105) 100 02/21/19 02:00 73 24 137/58 (84) 100 02/21/19 01:04 100 T-Piece 8.0 30 02/21/19 01:00 74 28 141/51 (81) 100 02/21/19 00:00 T-piece 10.0 02/21/19 00:00 98.5 74 28 108/68 (81) 100 02/20/19 23:28 74 20 100 T-Piece 8.0 30 02/20/19 23:10 77 20 100 T-Piece 8.0 30 02/20/19 23:00 72 144/60 (88) 100 02/20/19 22:59 72 20 100 T-Piece 8.0 30 72 20 100 02/20/19 22:57 72 02/20/19 22:00 77 147/56 (86) 100 02/20/19 21:00 78 142/53 (82) 100 02/20/19 20:12 82 155/61 02/20/19 20:00 T-piece 10.0 02/20/19 20:00 10.0 30 02/20/19 20:00 98.2 78 155/61 (92) 100 02/20/19 19:44 79 02/20/19 19:06 77 24 167/67 (100) 100 02/20/19 18:47 76 20 100 T-Piece 8.0 30 77 20 100 02/20/19 18:46 100 T-Piece 8.0 30 02/20/19 18:00 98.0 79 23 148/66 (93) 100 02/20/19 17:00 77 25 148/60 (89) 100 02/20/19 16:00 69 02/20/19 16:00 10.0 30 02/20/19 16:00 68 23 141/64 (89) 99 02/20/19 15:28 68 21 100 T-Piece 8.0 30 69 23 100 02/20/19 15:00 85 24 149/60 (89) 99 02/20/19 14:00 72 23 140/57 (84) 100 02/20/19 13:05 98 T-Piece 8.0 30 02/20/19 13:00 69 25 140/52 (81) 100 02/20/19 12:00 97.8 89 26 114/48 (70) 100 02/20/19 12:00 10.0 30 02/20/19 12:00 89 26 114/48 (70) 100 02/20/19 12:00 70 02/20/19 11:10 71 23 100 T-Piece 8.0 30 72 24 98 02/20/19 11:00 73 24 146/76 (99) 100 Height (Feet): 5 Height (Inches): 5.00 Weight (Pounds): 180 HEENT: status post trach Respiratory/Chest: lungs clear Cardiovascular: normal rate, regular rhythm, no gallop/murmur Abdomen: soft, non tender Extremities: no edema, other - right arm PICC Laboratory Tests Test 02/21/19 04:00 White Blood Count 9.1 K/UL (4.8-10.8) Red Blood Count 3.42 M/UL (4.20-5.40) L Hemoglobin 9.2 G/DL (12.0-16.0) L Hematocrit 29.0 % (37.0-47.0) L Mean Corpuscular Volume 85 FL (80-99) Mean Corpuscular Hemoglobin 27.0 PG (27.0-31.0) Mean Corpuscular Hemoglobin Concent 31.8 G/DL (32.0-36.0) L Red Cell Distribution Width 16.2 % (11.6-14.8) H Platelet Count 333 K/UL (150-450) Mean Platelet Volume 4.6 FL (6.5-10.1) L Neutrophils (%) (Auto) 60.5 % (45.0-75.0) Lymphocytes (%) (Auto) 29.4 % (20.0-45.0) Monocytes (%) (Auto) 4.9 % (1.0-10.0) Eosinophils (%) (Auto) 4.2 % (0.0-3.0) H Basophils (%) (Auto) 0.9 % (0.0-2.0) Sodium Level 141 MMOL/L (136-145) Potassium Level 4.4 MMOL/L (3.5-5.1) Chloride Level 107 MMOL/L (98-107) Carbon Dioxide Level 33 MMOL/L (21-32) H Anion Gap 1 mmol/L (5-15) L Blood Urea Nitrogen 15 mg/dL (7-18) Creatinine 1.0 MG/DL (0.55-1.30) Estimat Glomerular Filtration Rate mL/min (>60) Glucose Level 83 MG/DL (74-106) Calcium Level 8.4 MG/DL (8.5-10.1) L Magnesium Level 1.6 MG/DL (1.8-2.4) L Total Bilirubin 0.2 MG/DL (0.2-1.0) Aspartate Amino Transf (AST/SGOT) 21 U/L (15-37) Alanine Aminotransferase (ALT/SGPT) 18 U/L (12-78) Alkaline Phosphatase 145 U/L (46-116) H Pro-B-Type Natriuretic Peptide 1082 pg/mL (0-125) H Total Protein 7.8 G/DL (6.4-8.2) Albumin 2.2 G/DL (3.4-5.0) L Globulin 5.6 g/dL Albumin/Globulin Ratio 0.4 (1.0-2.7) L Current Medications Medications (Trade) Dose Ordered Sig/Maicol Route PRN Reason Start Time Stop Time Status Last Admin Dose Admin Acetaminophen (Tylenol) 650 mg Q4H PRN GT Mild Pain/Temp > 100.5 02/18/19 05:44 03/05/19 05:43 Acetylcysteine (Mucomyst) 100 mg Q4HRT HHN 02/18/19 07:00 03/03/19 12:59 02/21/19 07:05 Albuterol/ Ipratropium (Albuterol/ Ipratropium) 3 ml Q4H PRN HHN Shortness of Breath 02/18/19 05:45 02/22/19 05:44 02/21/19 07:02 Amikacin Sulfate (Amikin) 500 mg Q12HR@, INH 02/20/19 22:00 02/27/19 21:59 02/21/19 09:34 Ascorbic Acid (Vitamin C) 250 mg DAILY GT 02/18/19 09:00 02/24/19 08:59 02/21/19 08:46 Atropine Sulfate (Atropine Opth Adriana) 1 drop TID SL 02/18/19 09:00 03/12/19 09:29 02/21/19 09:21 Bisacodyl (Dulcolax) 10 mg PRN PRN RECTAL Constipation 02/18/19 05:30 02/23/19 05:29 Chlorhexidine Gluconate (Cesilia-Hex 2%) 1 applic DAILY@1999 TOPIC 02/18/19 20:00 03/12/19 19:59 02/20/19 20:12 Dextrose/Sodium Chloride 1,000 ml @ 50 mls/hr Q20H IV 02/18/19 06:00 03/19/19 05:59 02/21/19 09:04 Heparin Sodium (Porcine) (Heparin 5000 units/ml) 5,000 units EVERY 12 HOURS SUBQ 02/18/19 09:00 03/16/19 23:14 02/21/19 08:48 Hydralazine HCl (Apresoline) 25 mg Q4H PRN GT SBP above 160 02/18/19 05:46 03/09/19 05:45 Levetiracetam (Keppra) 750 mg Q12HR GT 02/18/19 09:00 03/16/19 23:29 02/21/19 08:45 Magnesium Sulfate 100 ml @ 100 mls/hr Q1H IVPB 02/21/19 08:00 02/21/19 11:59 02/21/19 10:00 Metoclopramide HCl (Reglan) 10 mg Q6H PRN IVP Nausea & Vomiting 02/18/19 05:46 03/09/19 05:45 Metoprolol Tartrate (Lopressor) 25 mg Q12HR GT 02/18/19 09:00 03/16/19 23:29 02/21/19 08:47 Ondansetron HCl (Zofran) 4 mg Q6H PRN GT Nausea & Vomiting 02/18/19 05:46 02/23/19 05:45 Pantoprazole (Protonix) 40 mg Q12HR IVP 02/18/19 09:00 03/16/19 23:29 02/21/19 08:46 Geovany Yang MD Feb 21, 2019 10:49"
--- NOTE | 2019-02-21 11:33 | General Progress Note ---
Assessment/Plan Problem List: (1) Seizure ICD Codes: R56.9 - Unspecified convulsions SNOMED: 08063878 (2) Anemia ICD Codes: D64.9 - Anemia, unspecified SNOMED: 024156444 Qualifiers: Qualified Codes: D64.9 - Anemia, unspecified (3) Sepsis ICD Codes: A41.9 - Sepsis, unspecified organism SNOMED: 60668760, 065909645 Qualifiers: Qualified Codes: A41.9 - Sepsis, unspecified organism (4) Respiratory failure with hypoxia ICD Codes: J96.91 - Respiratory failure, unspecified with hypoxia SNOMED: 68432415468506296 Qualifiers: Qualified Codes: J96.21 - Acute and chronic respiratory failure with hypoxia (5) HCAP (healthcare-associated pneumonia) ICD Codes: J18.9 - Pneumonia, unspecified organism SNOMED: 437437193, 364607155 (6) Sacral decubitus ulcer ICD Codes: L89.159 - Pressure ulcer of sacral region, unspecified stage SNOMED: 695058953 (7) HTN (hypertension) ICD Codes: I10 - Essential (primary) hypertension SNOMED: 13101235 (8) Chronic vegetative state ICD Codes: R40.3 - Persistent vegetative state SNOMED: 83902555 (9) Chronic respiratory failure ICD Codes: J96.10 - Chronic respiratory failure, unspecified whether with hypoxia or hypercapnia SNOMED: 74976717 (10) Limited mobility ICD Codes: Z74.09 - Other reduced mobility SNOMED: 3721765 Status: stable, progressing Assessment/Plan: vent prn as needed resp rx suctioning as needed gt feeds monitor for vomiting bowel regime monitor residuals sx rx repeat sputum culture transfuse prn dc planning Subjective ROS Limited/Unobtainable: Yes Constitutional: Reports: malaise, weakness HEENT: Reports: no symptoms Cardiovascular: Reports: no symptoms Respiratory: Reports: shortness of breath, sputum Gastrointestinal/Abdominal: Reports: difficulty swallowing Genitourinary: Reports: no symptoms Neurologic/Psychiatric: Reports: pre-existing deficit, seizure Endocrine: Reports: no symptoms Hematologic/Lymphatic: Reports: anemia Allergies: Coded Allergies: CODEINE (Verified Allergy, Unknown, HIVES, 09/15/09) All Systems: reviewed and negative except above Subjective better today. less congestion. less secretions. labs reviewed. no bleeding, cxr unchanged. Objective Last 24 Hour Vital Signs Date Time Temp Pulse Resp B/P (MAP) Pulse Ox O2 Delivery O2 Flow Rate FiO2 02/21/19 10:55 79 23 100 T-Piece 8.0 30 70 25 100 02/21/19 10:00 76 22 138/59 (85) 100 02/21/19 09:35 73 20 100 T-Piece 8.0 30 76 24 100 02/21/19 09:00 84 20 155/70 (98) 97 02/21/19 08:47 76 152/71 02/21/19 08:00 T-piece 10.0 02/21/19 08:00 10.0 30 02/21/19 08:00 98.2 74 23 150/52 (84) 100 02/21/19 08:00 77 02/21/19 07:05 100 T-Piece 8.0 30 02/21/19 07:05 76 22 100 T-Piece 8.0 30 70 18 100 02/21/19 07:00 69 21 152/71 (98) 100 02/21/19 06:00 76 24 117/51 (73) 99 02/21/19 05:00 77 22 149/69 (95) 100 02/21/19 04:00 10.0 30 02/21/19 04:00 98.2 74 22 153/71 (98) 100 02/21/19 04:00 T-piece 10.0 02/21/19 03:35 71 20 100 T-Piece 8.0 30 69 20 100 02/21/19 03:02 78 02/21/19 03:00 74 22 180/68 (105) 100 02/21/19 02:00 73 24 137/58 (84) 100 02/21/19 01:04 100 T-Piece 8.0 30 02/21/19 01:00 74 28 141/51 (81) 100 02/21/19 00:00 T-piece 10.0 02/21/19 00:00 98.5 74 28 108/68 (81) 100 02/20/19 23:28 74 20 100 T-Piece 8.0 30 02/20/19 23:10 77 20 100 T-Piece 8.0 30 02/20/19 23:00 72 144/60 (88) 100 02/20/19 22:59 72 20 100 T-Piece 8.0 30 72 20 100 11/22/19 22:57 72 02/20/19 22:00 77 147/56 (86) 100 02/20/19 21:00 78 142/53 (82) 100 02/20/19 20:12 82 155/61 02/20/19 20:00 T-piece 10.0 02/20/19 20:00 10.0 30 02/20/19 20:00 98.2 78 155/61 (92) 100 02/20/19 19:44 79 02/20/19 19:06 77 24 167/67 (100) 100 02/20/19 18:47 76 20 100 T-Piece 8.0 30 77 20 100 02/20/19 18:46 100 T-Piece 8.0 30 02/20/19 18:00 98.0 79 23 148/66 (93) 100 02/20/19 17:00 77 25 148/60 (89) 100 02/20/19 16:00 69 02/20/19 16:00 10.0 30 02/20/19 16:00 68 23 141/64 (89) 99 02/20/19 15:28 68 21 100 T-Piece 8.0 30 69 23 100 02/20/19 15:00 85 24 149/60 (89) 99 02/20/19 14:00 72 23 140/57 (84) 100 02/20/19 13:05 98 T-Piece 8.0 30 02/20/19 13:00 69 25 140/52 (81) 100 02/20/19 12:00 97.8 89 26 114/48 (70) 100 02/20/19 12:00 10.0 30 02/20/19 12:00 89 26 114/48 (70) 100 02/20/19 12:00 70 Intake and Output 02/20/19 02/21/19 19:00 07:00 Intake Total 1170 ml 1175 ml Output Total 3 ml 800 ml Balance 1167 ml 375 ml Free Water 200 ml 30 ml IV Total 450 ml 600 ml Tube Feeding 420 ml 455 ml Blood Product 30 ml Other 100 ml 60 ml Output Urine Total 2 ml 800 ml Stool Total 1 ml # Bowel Movements 2 Laboratory Tests 02/21/19 04:00: White Blood Count 9.1, Red Blood Count 3.42L, Hemoglobin 9.2L, Hematocrit 29.0L , Mean Corpuscular Volume 85, Mean Corpuscular Hemoglobin 27.0, Mean Corpuscular Hemoglobin Concent 31.8L, Red Cell Distribution Width 16.2H, Platelet Count 333, Mean Platelet Volume 4.6L, Neutrophils (%) (Auto) 60.5, Lymphocytes (%) (Auto) 29.4, Monocytes (%) (Auto) 4.9, Eosinophils (%) (Auto) 4.2H, Basophils (%) (Auto) 0.9, Sodium Level 141, Potassium Level 4.4, Chloride Level 107, Carbon Dioxide Level 33H, Anion Gap 1L, Blood Urea Nitrogen 15, Creatinine 1.0, Estimat Glomerular Filtration Rate , Glucose Level 83, Calcium Level 8.4L, Magnesium Level 1.6L, Total Bilirubin 0.2, Aspartate Amino Transf ( AST/SGOT) 21, Alanine Aminotransferase (ALT/SGPT) 18, Alkaline Phosphatase 145H , Pro-B-Type Natriuretic Peptide 1082H, Total Protein 7.8, Albumin 2.2L, Globulin 5.6, Albumin/Globulin Ratio 0.4L Height (Feet): 5 Height (Inches): 5.00 Weight (Pounds): 180 Objective General Appearance: WD/WN, confused. on trach collar Neck: supple Cardiovascular: normal rate, regular rhythm Respiratory/Chest: chest wall non-tender, rhonchi - bilaterally(minimal) Abdomen: normal bowel sounds, non tender, soft, no organomegaly Edema: no edema noted Arm (L), no edema noted Arm (R), no edema noted Leg (L), no edema noted Leg (R), no edema noted Pedal (L), no edema noted Pedal (R), no edema noted Generalized Neurologic: disoriented, unresponsive, aphasia Irvin Beltrán MD Feb 21, 2019 11:33
--- NOTE | 2019-02-21 12:00 | NUR ---
NURSE NOTES: Pt is resting with no signs/symptoms of pain or discomfort noted. VS remain stable. Pt remains afebrile. O2Sat is 100% while pt remains on FIO2 30% via trach Shiley connected to T-piece on cool aerosol. cardiac monitor technician displays NSR with heart rate in the 70's-80's. IV fluid is maintained D5NS at 50ml/hour per MD order. Pt is tolerating GT feeding well with no noted residual. External urinary catheter continues to drain yellow urine.
--- NOTE | 2019-02-21 14:00 | NUR ---
NURSE NOTES: Pt remains with stable VS and no signs/symptoms of pain or discomfort noted. Oral/trach secretion output has lessened after administration of Atropine sublingual per order.
--- NOTE | 2019-02-21 15:00 | Nephrology Progress Note ---
Assessment/Plan Problem List: (1) Acute renal failure (ARF) Assessment: Cr stable (2) Chronic respiratory failure (3) Anemia (4) Sepsis Assessment Acute renal failure Respiratory failure - Trach Low Mag- Low k , Low Na Anemia UTI / Sepsis Proteinuria / HypoAlbuminemia high Trigs Sz decubs bed bound DNR Plan K and Mag and Phos supplement as needed Hydrate Urine studies avoid Nephrotoxics mag K Phos supplements as needed monitor renal parameters Subjective ROS Limited/Unobtainable: Yes Objective Objective Last 24 Hour Vital Signs Date Time Temp Pulse Resp B/P (MAP) Pulse Ox O2 Delivery O2 Flow Rate FiO2 02/21/19 14:00 76 19 139/58 (85) 100 02/21/19 13:44 99 T-Piece 8.0 30 02/21/19 13:00 72 23 143/65 (91) 100 02/21/19 12:00 97.7 70 20 115/80 (92) 100 02/21/19 12:00 10.0 30 02/21/19 12:00 71 02/21/19 11:00 76 22 152/63 (92) 100 02/21/19 10:55 79 23 100 T-Piece 8.0 30 70 25 100 02/21/19 10:00 76 22 138/59 (85) 100 02/21/19 09:35 73 20 100 T-Piece 8.0 30 76 24 100 02/21/19 09:00 84 20 155/70 (98) 97 02/21/19 08:47 76 152/71 02/21/19 08:00 T-piece 10.0 02/21/19 08:00 10.0 30 02/21/19 08:00 98.2 74 23 150/52 (84) 100 02/21/19 08:00 77 02/21/19 07:05 100 T-Piece 8.0 30 02/21/19 07:05 76 22 100 T-Piece 8.0 30 70 18 100 02/21/19 07:00 69 21 152/71 (98) 100 02/21/19 06:00 76 24 117/51 (73) 99 02/21/19 05:00 77 22 149/69 (95) 100 02/21/19 04:00 10.0 30 02/21/19 04:00 98.2 74 22 153/71 (98) 100 02/21/19 04:00 T-piece 10.0 02/21/19 03:35 71 20 100 T-Piece 8.0 30 69 20 100 02/21/19 03:02 78 02/21/19 03:00 74 22 180/68 (105) 100 02/21/19 02:00 73 24 137/58 (84) 100 02/21/19 01:04 100 T-Piece 8.0 30 02/21/19 01:00 74 28 141/51 (81) 100 02/21/19 00:00 T-piece 10.0 02/21/19 00:00 98.5 74 28 108/68 (81) 100 02/20/19 23:28 74 20 100 T-Piece 8.0 30 02/20/19 23:10 77 20 100 T-Piece 8.0 30 02/20/19 23:00 72 144/60 (88) 100 02/20/19 22:59 72 20 100 T-Piece 8.0 30 72 20 100 02/20/19 22:57 72 02/20/19 22:00 77 147/56 (86) 100 02/20/19 21:00 78 142/53 (82) 100 02/20/19 20:12 82 155/61 02/20/19 20:00 T-piece 10.0 02/20/19 20:00 10.0 30 02/20/19 20:00 98.2 78 155/61 (92) 100 02/20/19 19:44 79 02/20/19 19:06 77 24 167/67 (100) 100 02/20/19 18:47 76 20 100 T-Piece 8.0 30 77 20 100 02/20/19 18:46 100 T-Piece 8.0 30 02/20/19 18:00 98.0 79 23 148/66 (93) 100 02/20/19 17:00 77 25 148/60 (89) 100 02/20/19 16:00 69 02/20/19 16:00 10.0 30 02/20/19 16:00 68 23 141/64 (89) 99 02/20/19 15:28 68 21 100 T-Piece 8.0 30 69 23 100 02/20/19 15:00 85 24 149/60 (89) 99 Intake and Output 02/20/19 02/21/19 19:00 07:00 Intake Total 1170 ml 1175 ml Output Total 3 ml 800 ml Balance 1167 ml 375 ml Free Water 200 ml 30 ml IV Total 450 ml 600 ml Tube Feeding 420 ml 455 ml Blood Product 30 ml Other 100 ml 60 ml Output Urine Total 2 ml 800 ml Stool Total 1 ml # Bowel Movements 2 Laboratory Tests 02/21/19 04:00: White Blood Count 9.1, Red Blood Count 3.42L, Hemoglobin 9.2L, Hematocrit 29.0L , Mean Corpuscular Volume 85, Mean Corpuscular Hemoglobin 27.0, Mean Corpuscular Hemoglobin Concent 31.8L, Red Cell Distribution Width 16.2H, Platelet Count 333, Mean Platelet Volume 4.6L, Neutrophils (%) (Auto) 60.5, Lymphocytes (%) (Auto) 29.4, Monocytes (%) (Auto) 4.9, Eosinophils (%) (Auto) 4.2H, Basophils (%) (Auto) 0.9, Sodium Level 141, Potassium Level 4.4, Chloride Level 107, Carbon Dioxide Level 33H, Anion Gap 1L, Blood Urea Nitrogen 15, Creatinine 1.0, Estimat Glomerular Filtration Rate , Glucose Level 83, Calcium Level 8.4L, Magnesium Level 1.6L, Total Bilirubin 0.2, Aspartate Amino Transf ( AST/SGOT) 21, Alanine Aminotransferase (ALT/SGPT) 18, Alkaline Phosphatase 145H , Pro-B-Type Natriuretic Peptide 1082H, Total Protein 7.8, Albumin 2.2L, Globulin 5.6, Albumin/Globulin Ratio 0.4L Height (Feet): 5 Height (Inches): 5.00 Weight (Pounds): 180 General Appearance: no apparent distress EENT: other - trach to O2 Cardiovascular: normal rate Respiratory/Chest: decreased breath sounds Abdomen: distended Eric Cortez MD Feb 21, 2019 15:00
--- NOTE | 2019-02-21 16:30 | NUR ---
NURSE NOTES: Wound photos were taken and uploaded. Dressings were changed. Pt had BM x1, formed/soft/brown. Pt was cleaned, gown/bed linens were changed. Pt was repositioned with bilateral lower extremities elevated on pillows. VS remain stable. Pt is resting with no s/s of pain or discomfort noted.
--- NOTE | 2019-02-21 18:40 | NUR ---
NURSE NOTES: Pt was repositioned. Oral care was done. External urinary canister was changed. Order noted to DC IV fluid, and order carried out. VS remain stable.
--- NOTE | 2019-02-21 19:00 | Progress Note ---
DATE: 02/21/2019 CARDIOLOGY PROGRESS NOTE SUBJECTIVE: The patient's condition remains critical with guarded prognosis, although there is slight improvement today. She is not on pressor support. Remains on ventilator support. OBJECTIVE: VITAL SIGNS: Blood pressure 138/59, pulse 76, respirations 22, no fevers. Still with moderate secretions, although decreased. LUNGS: With rhonchi. CARDIAC: Regular rhythm and rate. Normal S1, S2. No murmur appreciated. ABDOMEN: Soft. G-tube intact. EXTREMITIES: There is dependent edema noted. LABORATORY AND DIAGNOSTIC DATA: White count 9.1, hemoglobin 9.2. Potassium 4.4, BUN 15, creatinine 1, magnesium 1.6. Pro-natriuretic peptide has increased to 1000. IMPRESSION: 1. Respiratory failure. 2. Hypomagnesemia. 3. Acute on chronic diastolic congestive heart failure. 4. Severe sepsis with recovered shock. 5. Poor peripheral access requiring central venous access. 6. Hypertensive heart disease. PLAN: 1. Ventilator and tube support as needed with trach care. 2. Antimicrobials per Infectious Disease building performance consultant. 3. Avoid positive fluid balance. 4. Periodic diuresis. 5. Respiratory hygiene. 6. DVT prophylaxis. 7. IV magnesium. 8. Nutrition by feeding tube. 9. Titration of antihypertensives based on clinical parameters. Bg Hagen M.D. DR: IOANA JOB#: [id number] CC:
--- NOTE | 2019-02-21 19:26 | Surgery Progress Note ---
Surgery Progress Note Subjective Additional Comments comfortable labs stable exam unchanged Objective Last 24 Hour Vital Signs Date Time Temp Pulse Resp B/P (MAP) Pulse Ox O2 Delivery O2 Flow Rate FiO2 02/21/19 19:03 100 T-Piece 8.0 30 02/21/19 19:02 72 19 100 T-Piece 8.0 30 74 21 100 02/21/19 18:00 71 24 137/61 (86) 100 02/21/19 17:00 72 21 138/60 (86) 100 02/21/19 16:00 10.0 30 02/21/19 16:00 67 02/21/19 16:00 97.6 70 22 131/77 (95) 100 02/21/19 16:00 T-piece 10.0 02/21/19 15:12 69 20 100 T-Piece 8.0 30 67 19 100 02/21/19 15:00 80 19 114/56 (75) 100 02/21/19 14:00 76 19 139/58 (85) 100 02/21/19 13:44 99 T-Piece 8.0 30 02/21/19 13:00 72 23 143/65 (91) 100 02/21/19 12:00 97.7 70 20 115/80 (92) 100 02/21/19 12:00 10.0 30 02/21/19 12:00 T-piece 10.0 02/21/19 12:00 71 02/21/19 11:00 76 22 152/63 (92) 100 02/21/19 10:55 79 23 100 T-Piece 8.0 30 70 25 100 02/21/19 10:00 76 22 138/59 (85) 100 02/21/19 09:35 73 20 100 T-Piece 8.0 30 76 24 100 02/21/19 09:00 84 20 155/70 (98) 97 02/21/19 08:47 76 152/71 02/21/19 08:00 T-piece 10.0 02/21/19 08:00 10.0 30 02/21/19 08:00 98.2 74 23 150/52 (84) 100 02/21/19 08:00 77 02/21/19 07:05 100 T-Piece 8.0 30 02/21/19 07:05 76 22 100 T-Piece 8.0 30 70 18 100 02/21/19 07:00 69 21 152/71 (98) 100 02/21/19 06:00 76 24 117/51 (73) 99 02/21/19 05:00 77 22 149/69 (95) 100 02/21/19 04:00 10.0 30 02/21/19 04:00 98.2 74 22 153/71 (98) 100 02/21/19 04:00 T-piece 10.0 02/21/19 03:35 71 20 100 T-Piece 8.0 30 69 20 100 02/21/19 03:02 78 02/21/19 03:00 74 22 180/68 (105) 100 02/21/19 02:00 73 24 137/58 (84) 100 02/21/19 01:04 100 T-Piece 8.0 30 02/21/19 01:00 74 28 141/51 (81) 100 02/21/19 00:00 T-piece 10.0 02/21/19 00:00 98.5 74 28 108/68 (81) 100 02/20/19 23:28 74 20 100 T-Piece 8.0 30 02/20/19 23:10 77 20 100 T-Piece 8.0 30 02/20/19 23:00 72 144/60 (88) 100 02/20/19 22:59 72 20 100 T-Piece 8.0 30 72 20 100 02/20/19 22:57 72 02/20/19 22:00 77 147/56 (86) 100 02/20/19 21:00 78 142/53 (82) 100 02/20/19 20:12 82 155/61 02/20/19 20:00 T-piece 10.0 02/20/19 20:00 10.0 30 02/20/19 20:00 98.2 78 155/61 (92) 100 02/20/19 19:44 79 I&O Intake and Output 02/20/19 02/21/19 19:00 07:00 Intake Total 1170 ml 1175 ml Output Total 3 ml 800 ml Balance 1167 ml 375 ml Free Water 200 ml 30 ml IV Total 450 ml 600 ml Tube Feeding 420 ml 455 ml Blood Product 30 ml Other 100 ml 60 ml Output Urine Total 2 ml 800 ml Stool Total 1 ml # Bowel Movements 2 Dressing: other Wound: other Drains: other Cardiovascular: RSR Respiratory: decreased breath sounds Abdomen: soft, present bowel sounds Extremities: no cyanosis Laboratory Tests Test 02/21/19 04:00 White Blood Count 9.1 K/UL (4.8-10.8) Red Blood Count 3.42 M/UL (4.20-5.40) L Hemoglobin 9.2 G/DL (12.0-16.0) L Hematocrit 29.0 % (37.0-47.0) L Mean Corpuscular Volume 85 FL (80-99) Mean Corpuscular Hemoglobin 27.0 PG (27.0-31.0) Mean Corpuscular Hemoglobin Concent 31.8 G/DL (32.0-36.0) L Red Cell Distribution Width 16.2 % (11.6-14.8) H Platelet Count 333 K/UL (150-450) Mean Platelet Volume 4.6 FL (6.5-10.1) L Neutrophils (%) (Auto) 60.5 % (45.0-75.0) Lymphocytes (%) (Auto) 29.4 % (20.0-45.0) Monocytes (%) (Auto) 4.9 % (1.0-10.0) Eosinophils (%) (Auto) 4.2 % (0.0-3.0) H Basophils (%) (Auto) 0.9 % (0.0-2.0) Sodium Level 141 MMOL/L (136-145) Potassium Level 4.4 MMOL/L (3.5-5.1) Chloride Level 107 MMOL/L (98-107) Carbon Dioxide Level 33 MMOL/L (21-32) H Anion Gap 1 mmol/L (5-15) L Blood Urea Nitrogen 15 mg/dL (7-18) Creatinine 1.0 MG/DL (0.55-1.30) Estimat Glomerular Filtration Rate mL/min (>60) Glucose Level 83 MG/DL (74-106) Calcium Level 8.4 MG/DL (8.5-10.1) L Magnesium Level 1.6 MG/DL (1.8-2.4) L Total Bilirubin 0.2 MG/DL (0.2-1.0) Aspartate Amino Transf (AST/SGOT) 21 U/L (15-37) Alanine Aminotransferase (ALT/SGPT) 18 U/L (12-78) Alkaline Phosphatase 145 U/L (46-116) H Pro-B-Type Natriuretic Peptide 1082 pg/mL (0-125) H Total Protein 7.8 G/DL (6.4-8.2) Albumin 2.2 G/DL (3.4-5.0) L Globulin 5.6 g/dL Albumin/Globulin Ratio 0.4 (1.0-2.7) L Plan Problems: (1) Sacral decubitus ulcer Assessment & Plan: This is a 83-year-old female with multiple medical committees that is currently admitted for medical care and management and identified to have multiple wounds requiring care. On admission patient noted to have a resolved sacral decubitus ulcer. Has had prior care and is well-healed at this time. Will ensure it does not open up again. Patient has a right ischial decubitus ulcer that is resolved. Scar intact and well formed. Will monitor to ensure it does not open up again. Patient has a left ischial decubitus ulcer that can be identified to be stage IV with palpable bone that has been resolving as noted by the periwound tissue and scar but open area approximately 1 cm x 1.5 cm few millimeters deep to bone identified. Unsure if this is been to be completely healed prior and has since opened or if has been healing at this level. No foul odor no drainage was unsure local wound care until healed Bilateral heels soft without signs of injury Resolving pressure injury L ischium(L)1.8cm x (W)1cm.Scattered biofilm at base of wound. Edges flat and adherent with surrounding hyperpigmentation. No odor or exudate noted. Sacrum is pale pink with surrounding hyperpigmentation. Hyperpigmentation R ischium with small sheared area centrally.No areas of erythema or exudate noted. Both heels are soft but blanchable. Skin Assessed under collar of trach and no evidence of skin breakdown noted. All wound Tx. are effective and continued as ordered. Pt ahs an APM/Belén mattress overlay and is being repositioned per protocols and per tolerance.No new skin concerns noted. Treatment plan: Please apply skin protectant and optifoam to sacral area. Change every 3 days Please apply skin protectant and optifoam to right ischial area. Change every 3 days Please apply Thera honey infused gauze to small opening in the left ischial wound bed followed by skin protectant in the periwound and up to foam. Change daily as needed saturation Apply Xeroform and dressing over left hand blister. Offload pressure from heels with pillow Air soft mattress Turn every 2 hours Nutritional optimization We will monitor follow with recommendations (2) Sepsis Assessment & Plan: IV abx as per ID trend labs improving wounds unlikely etiology likely respiratory imaging noted and okay abnormal lft's stable PICC on Abx in ICU for desaturation CXR with consolidation Evidence of left lower lobe pneumonia, also previously demonstrated Gastrostomy in good position Mild diastasis of the rectus abdominis musculature again demonstrated Retrosacral decubitus changes, better depicted on prior exam which included the pelvis Small hiatal hernia with evidence of trace gastroesophageal reflux (3) Feeding by G-tube Assessment & Plan: DAILY ESTIMATED NEEDS: Needs based on Pulmonary, wounds, bedbound/ 60kg adj 25-28 kcals/kg 1561-5751 total kcals 1.25-2 g protein/kg 75-120 g total protein 25-30 mL/kg 3447-1582 total fluid mLs NUTRITION DIAGNOSIS: * Swallowing difficulty R/T respiratory status as evidenced by pt on T-collar, now back the vent, PEG dep, TF changed to low rate at this time due to episodes of vomiting + residuals. * Increased kcal/prot needs R/T wound healing as evidenced by BL buttocks and sacral wound photos, refer to eval. (CURRENT TF:Glucerna 1.5 @35ml) ENTERAL NUTRITION RECOMMENDATIONS: VITAL AF 1.2 @ 55ml/hr x 24 hrs to provide 1320ml, 1584kcal, 99g prot, 1060ml free water - Once medically appropriate to resume TF, rec to initiate elemental and carb control formula of Vital 1.2 for possible improved tolerance - Initiate VITAL 1.2 @ 25ml/hr x 6hrs, advance 10ml q 4-6 hrs as tolerated to goal rate - Flush per MD/ HOB over 30 degrees ADDITIONAL RECOMMENDATIONS: 1) Re-calibrated bedscale wt for accurate CBW 2) Wound healing: Add Cristian 1pkt BID w/ improved Tf tolerace + MVI x1 daily 3) Monitor lytes, replete as needed (low Mg, K) 4) Monitor NPO status, ability to resume TF. -> held on and off due to vomiting since 02/02 5) SSI prn resume tube feeds (4) Chronic vegetative state Assessment & Plan: incontinence of urine and stool. can soil dressings. nurses doing great job with monitoring and changing prn (5) Leukocytosis Walter Madera Feb 21, 2019 19:26
--- NOTE | 2019-02-21 19:30 | NUR ---
NURSE NOTES: Received report from JEANNINE Rodriguez. Pt is sleeping on the bed and obtunded. able to response to pain stimuli. Pt has trach, Shiley 6 XLT attached to T-piece with FIO2 30%, O2 8L and FiO2 100% noted. Given oral and tracheal suction and provided oral care. On Tele monitor with SR. Noted generalized/peripheral edema. Pt has right upper arm PICC and dressing is cleaned and dry and on sign of infiltration noted. On G-tube feeding Glucerna 1.5 @ 35ml/hour and no residual noted. Keep HOB. Pt has purewicks and in placed. with no residual. Dressing is clean and dry on wound area. Pt applied kerlix sheridan dressing on Lt. hand area. Pt is on pressure releasing mattress. Placed fall precaution. Will continue to care plan.
--- NOTE | 2019-02-21 19:34 | NUR ---
HAND-OFF: Report given to Lorenza PAEZ. VS stable. Endorsed plan of care.
[2019-02-21] MEDS: Dyna-Hex 2% Top Sol 2oz TOPIC SCH (19:58)
--- NOTE | 2019-02-21 22:00 | NUR ---
NURSE NOTES: Pt is sleeping on the bed and no sign of acute distress noted. Provide oral care and suction. Repositioned. Placed fall precaution. Will continue to care plan.
[2019-02-22] VITALS (24 sets, daily range): BP systolic 107–155; BP diastolic 43–99
--- NOTE | 2019-02-22 | NUR ---
NURSE NOTES: Pt is sleeping on the bed and V/S stable. Changed position. Given oral care and suction. SaO2 100% noted. On G-tube feeding and tolerated well and no residual noted. Will continue to monitor any change of condition.
--- NOTE | 2019-02-22 02:00 | NUR ---
NURSE NOTES: Given tracheal and oral suction. Provided oral care. Pt sleeping on the bed. Changed position. No sign of pain by FLACC pain scale. Placed and fall and seizure precaution. Will continue to care plan.
[2019-02-22] MEDS: Albuterol/Ipratropium 3ml neb HHN PRN ×5 (03:44→23:14)
--- NOTE | 2019-02-22 04:00 | NUR ---
NURSE NOTES: Morning care was done. Cleaned Pt and applied lotion and cream. Changed wound dressing and G-tube site dressing. Suction was done. Repositioned. Placed fall precaution. Will continue to change of condition.
--- NOTE | 2019-02-22 06:00 | NUR ---
NURSE NOTES: No sign of acute distress noted. Repositioned. Given suction and oral care.
--- NOTE | 2019-02-22 07:33 | NUR ---
HAND-OFF: Report given to JEANNINE Suggs. Pt is resting on the bed and no sign of acute distress noted.
--- NOTE | 2019-02-22 07:34 | NUR ---
NURSE NOTES: Late entry: PT and report received from JEANNINE Britt; received on T-piece cool aerosol, 30% on 8L, saturating at 98%, suctioning done during morning rounds no excess secretions noted from mouth. PT has eyes closed upon morning rounds, no response to name or touch, responsive to pain. Gtube feeding running glucerna 1.5 @ 35cc/hr, no residual noted, flushes well remains patent, purewick connected to wall suction, PT has DEBBIE double lumen PICC, flushes well remains patent. PT has generalized edema. behavioral services tech shows SR @ 75bmp, weak peripheral pulses on palpation bilaterally, PT has pending transfer orders to another facility, reported CM has to be notified on Saturday. Will continue with plan of care for PT.
[2019-02-22] MEDS: Amikacin for Inhalation 2ML INH SCH ×2 (09:04→21:03)
--- NOTE | 2019-02-22 09:13 | General Progress Note ---
Assessment/Plan Status: stable, progressing Assessment/Plan: Assessment/Plan Status: stable, progressing Assessment/Plan: Assessment - N/V, periodic - suspect due to gastroparesis - will hold off on G to J conversion per daughter request - Elevated Alk phos / LFT - CT negative - abd U/S negative - check hepatitis serologies - negative - Anemia with OB (-) stools - Resp failure, s/p Trach - dysphagia, s/p PEG - OBS - poor Px Recommendations - laxative PRN - continue TF - aspiration precautions - elevate HOB - PPI - Elevate HOB Subjective ROS Limited/Unobtainable: No Allergies: Coded Allergies: CODEINE (Verified Allergy, Unknown, HIVES, 09/15/09) Objective Last 24 Hour Vital Signs Date Time Temp Pulse Resp B/P (MAP) Pulse Ox O2 Delivery O2 Flow Rate FiO2 02/22/19 09:05 82 20 99 T-Piece 8.0 30 83 25 99 02/22/19 08:00 8.0 30 02/22/19 07:00 80 22 122/52 (75) 99 02/22/19 06:55 99 T-Piece 8.0 30 02/22/19 06:00 76 22 128/50 (76) 99 02/22/19 05:00 77 22 125/48 (73) 99 02/22/19 04:00 81 02/22/19 04:00 8.0 30 02/22/19 04:00 98.1 81 22 155/52 (86) 100 02/22/19 03:45 76 24 100 T-Piece 8.0 30 74 23 100 02/22/19 03:00 81 22 137/99 (112) 99 02/22/19 02:00 77 23 113/50 (71) 99 02/22/19 01:14 100 T-Piece 8.0 30 02/22/19 01:00 76 23 119/49 (72) 99 02/22/19 00:00 98.0 79 22 120/52 (74) 100 02/22/19 00:00 73 02/22/19 00:00 8.0 30 02/21/19 23:23 78 22 100 T-Piece 8.0 30 76 26 100 02/21/19 23:00 75 24 158/69 (98) 100 02/21/19 22:00 71 22 112/51 (71) 100 02/21/19 21:29 74 22 100 T-Piece 8.0 30 75 23 100 02/21/19 21:00 74 24 144/61 (88) 100 02/21/19 20:32 79 135/55 02/21/19 20:00 8.0 30 02/21/19 20:00 74 02/21/19 20:00 98.5 79 22 135/55 (81) 99 02/21/19 19:03 100 T-Piece 8.0 30 02/21/19 19:02 72 19 100 T-Piece 8.0 30 74 21 100 02/21/19 19:00 74 24 142/54 (83) 100 71 02/21/19 18:00 71 24 137/61 (86) 100 02/21/19 17:00 72 21 138/60 (86) 100 02/21/19 16:00 10.0 30 02/21/19 16:00 67 02/21/19 16:00 97.6 70 22 131/77 (95) 100 02/21/19 16:00 T-piece 10.0 02/21/19 15:12 69 20 100 T-Piece 8.0 30 67 19 100 02/21/19 15:00 80 19 114/56 (75) 100 02/21/19 14:00 76 19 139/58 (85) 100 02/21/19 13:44 99 T-Piece 8.0 30 02/21/19 13:00 72 23 143/65 (91) 100 02/21/19 12:00 97.7 70 20 115/80 (92) 100 02/21/19 12:00 10.0 30 02/21/19 12:00 T-piece 10.0 02/21/19 12:00 71 02/21/19 11:00 76 22 152/63 (92) 100 02/21/19 10:55 79 23 100 T-Piece 8.0 30 70 25 100 02/21/19 10:00 76 22 138/59 (85) 100 02/21/19 09:35 73 20 100 T-Piece 8.0 30 76 24 100 Intake and Output 02/21/19 02/22/19 18:59 06:59 Intake Total 1590 ml 420 ml Output Total 540 ml 540 ml Balance 1050 ml -120 ml Free Water 120 ml IV Total 1050 ml Tube Feeding 420 ml 420 ml Output Urine Total 540 ml 540 ml # Bowel Movements 1 Height (Feet): 5 Height (Inches): 5.00 Weight (Pounds): 180 General Appearance: alert EENT: PERRL/EOMI Neck: supple Cardiovascular: normal rate Respiratory/Chest: decreased breath sounds Abdomen: normal bowel sounds, non tender, soft Extremities: non-tender Gary Guzman MD Feb 22, 2019 09:13
[2019-02-22] MEDS: levETIRAcetam 500mg/5ml Liquid GT SCH ×2 (09:42→20:44)
[2019-02-22] MEDS: Ascorbic Acid 500mg tab GT SCH (09:42)
[2019-02-22] MEDS: Pantoprazole Inj IVP SCH ×2 (09:42→20:43)
[2019-02-22] MEDS: Heparin 5000 units/ml inj SUBQ SCH ×2 (09:44→20:46)
--- NOTE | 2019-02-22 10:11 | Pulmonology Progress Note ---
Assessment/Plan Assessment/Plan Impression: Sepsis syndrome Pneumonia VDRF, Trach, G tube, Hypertension, Cardiac disease, Dementia, Previous CVA, Seizure disorder, Respiratory failure with hypoxia Anemia Sacral ulcer renal cyst pulmonary congestion Plan respiratory care to continue neb therapy SNF meds as is off vent as able Oxygen as needed Monitor labs daily changes noted and reviewed feeds as tolerated monitor albumin levels elevate head aspiration precautions Patient is a DNR. No CPR. ICU care reviewed medications/laboratory data/nursing notes/ICU care reviewed in detail note reviewed and edited care discussed with RN and RT ICU time spent 38 minutes Subjective ROS Limited/Unobtainable: Yes Allergies: Coded Allergies: CODEINE (Verified Allergy, Unknown, HIVES, 09/15/09) Subjective respiratory care noted congestion- still requires active suctioning ICU care reviewed supportive care noted and reviewed RT care reviewed overnight care noted findings reviewed and discussed in detail Objective Last 24 Hour Vital Signs Date Time Temp Pulse Resp B/P (MAP) Pulse Ox O2 Delivery O2 Flow Rate FiO2 02/22/19 09:05 82 20 99 T-Piece 8.0 30 83 25 99 02/22/19 09:00 82 120/55 02/22/19 09:00 78 25 120/55 (76) 99 78 02/22/19 08:00 79 02/22/19 08:00 8.0 30 02/22/19 08:00 98.6 74 0 107/43 (64) 98 74 02/22/19 07:00 80 22 122/52 (75) 99 02/22/19 06:55 99 T-Piece 8.0 30 02/22/19 06:00 76 22 128/50 (76) 99 02/22/19 05:00 77 22 125/48 (73) 99 02/22/19 04:00 81 02/22/19 04:00 8.0 30 02/22/19 04:00 98.1 81 22 155/52 (86) 100 02/22/19 03:45 76 24 100 T-Piece 8.0 30 74 23 100 02/22/19 03:00 81 22 137/99 (112) 99 02/22/19 02:00 77 23 113/50 (71) 99 02/22/19 01:14 100 T-Piece 8.0 30 02/22/19 01:00 76 23 119/49 (72) 99 02/22/19 00:00 98.0 79 22 120/52 (74) 100 02/22/19 00:00 73 02/22/19 00:00 8.0 30 02/21/19 23:23 78 22 100 T-Piece 8.0 30 76 26 100 02/21/19 23:00 75 24 158/69 (98) 100 02/21/19 22:00 71 22 112/51 (71) 100 02/21/19 21:29 74 22 100 T-Piece 8.0 30 75 23 100 02/21/19 21:00 74 24 144/61 (88) 100 02/21/19 20:32 79 135/55 02/21/19 20:00 8.0 30 02/21/19 20:00 74 02/21/19 20:00 98.5 79 22 135/55 (81) 99 02/21/19 19:03 100 T-Piece 8.0 30 02/21/19 19:02 72 19 100 T-Piece 8.0 30 74 21 100 02/21/19 19:00 74 24 142/54 (83) 100 71 02/21/19 18:00 71 24 137/61 (86) 100 02/21/19 17:00 72 21 138/60 (86) 100 02/21/19 16:00 10.0 30 02/21/19 16:00 67 02/21/19 16:00 97.6 70 22 131/77 (95) 100 02/21/19 16:00 T-piece 10.0 02/21/19 15:12 69 20 100 T-Piece 8.0 30 67 19 100 02/21/19 15:00 80 19 114/56 (75) 100 02/21/19 14:00 76 19 139/58 (85) 100 02/21/19 13:44 99 T-Piece 8.0 30 02/21/19 13:00 72 23 143/65 (91) 100 02/21/19 12:00 97.7 70 20 115/80 (92) 100 02/21/19 12:00 10.0 30 02/21/19 12:00 T-piece 10.0 02/21/19 12:00 71 02/21/19 11:00 76 22 152/63 (92) 100 02/21/19 10:55 79 23 100 T-Piece 8.0 30 70 25 100 Intake and Output 02/21/19 02/22/19 18:59 06:59 Intake Total 1590 ml 420 ml Output Total 540 ml 540 ml Balance 1050 ml -120 ml Free Water 120 ml IV Total 1050 ml Tube Feeding 420 ml 420 ml Output Urine Total 540 ml 540 ml # Bowel Movements 1 Objective WDWN NAD contracted off vent reduced breath sounds bilaterally with some rhonchi overall; no wheeze [id number] without MRG NABS nontender no HSM no CC minimal nonfocal nonverbal trach and gt reviewed and edited Current Medications Medications (Trade) Dose Ordered Sig/Maicol Route PRN Reason Start Time Stop Time Status Last Admin Dose Admin Acetaminophen (Tylenol) 650 mg Q4H PRN GT Mild Pain/Temp > 100.5 02/18/19 05:44 03/05/19 05:43 Acetylcysteine (Mucomyst) 100 mg Q4HRT HHN 02/18/19 07:00 03/03/19 12:59 02/22/19 03:00 Albuterol/ Ipratropium (Albuterol/ Ipratropium) 3 ml Q4H PRN HHN Shortness of Breath 02/22/19 07:07 02/27/19 07:06 Amikacin Sulfate (Amikin) 500 mg Q12HR@ INH 02/20/19 22:00 02/27/19 21:59 02/22/19 09:04 Ascorbic Acid (Vitamin C) 250 mg DAILY GT 02/18/19 09:00 02/24/19 08:59 02/22/19 09:42 Atropine Sulfate (Atropine Opth Adriana) 1 drop TID SL 02/18/19 09:00 03/12/19 09:29 02/22/19 09:49 Bisacodyl (Dulcolax) 10 mg PRN PRN RECTAL Constipation 02/18/19 05:30 02/23/19 05:29 Chlorhexidine Gluconate (Cesilia-Hex 2%) 1 applic DAILY@1999 TOPIC 02/18/19 20:00 03/12/19 19:59 02/21/19 19:58 Heparin Sodium (Porcine) (Heparin 5000 units/ml) 5,000 units EVERY 12 HOURS SUBQ 02/18/19 09:00 03/16/19 23:14 02/22/19 09:44 Hydralazine HCl (Apresoline) 25 mg Q4H PRN GT SBP above 160 02/18/19 05:46 03/09/19 05:45 Levetiracetam (Keppra) 750 mg Q12HR GT 02/18/19 09:00 03/16/19 23:29 02/22/19 09:42 Metoclopramide HCl (Reglan) 10 mg Q6H PRN IVP Nausea & Vomiting 02/18/19 05:46 03/09/19 05:45 Metoprolol Tartrate (Lopressor) 25 mg Q12HR GT 02/18/19 09:00 03/16/19 23:29 02/21/19 20:32 Ondansetron HCl (Zofran) 4 mg Q6H PRN GT Nausea & Vomiting 02/18/19 05:46 02/23/19 05:45 Pantoprazole (Protonix) 40 mg Q12HR IVP 02/18/19 09:00 03/16/19 23:29 02/22/19 09:42 Amaury Chan MD Feb 22, 2019 10:11
--- NOTE | 2019-02-22 10:22 | NUR ---
HAND-OFF: Report and PT given to JEANNINE Rodriguez.
--- NOTE | 2019-02-22 10:34 | General Progress Note ---
Assessment/Plan Problem List: (1) Seizure ICD Codes: R56.9 - Unspecified convulsions SNOMED: 63537919 (2) Anemia ICD Codes: D64.9 - Anemia, unspecified SNOMED: 257578854 Qualifiers: Qualified Codes: D64.9 - Anemia, unspecified (3) Sepsis ICD Codes: A41.9 - Sepsis, unspecified organism SNOMED: 52111753, 697130552 Qualifiers: Qualified Codes: A41.9 - Sepsis, unspecified organism (4) Respiratory failure with hypoxia ICD Codes: J96.91 - Respiratory failure, unspecified with hypoxia SNOMED: 75666515377563235 Qualifiers: Qualified Codes: J96.21 - Acute and chronic respiratory failure with hypoxia (5) HCAP (healthcare-associated pneumonia) ICD Codes: J18.9 - Pneumonia, unspecified organism SNOMED: 140635305, 844516028 (6) Sacral decubitus ulcer ICD Codes: L89.159 - Pressure ulcer of sacral region, unspecified stage SNOMED: 827659943 (7) HTN (hypertension) ICD Codes: I10 - Essential (primary) hypertension SNOMED: 96145317 (8) Chronic vegetative state ICD Codes: R40.3 - Persistent vegetative state SNOMED: 26192309 (9) Chronic respiratory failure ICD Codes: J96.10 - Chronic respiratory failure, unspecified whether with hypoxia or hypercapnia SNOMED: 73296415 (10) Limited mobility ICD Codes: Z74.09 - Other reduced mobility SNOMED: 3891886 Status: stable, progressing Assessment/Plan: vent prn as needed resp rx suctioning as needed gt feeds monitor for vomiting bowel regime monitor residuals sx rx repeat sputum culture transfuse prn dc planning Subjective ROS Limited/Unobtainable: Yes Constitutional: Reports: malaise, weakness HEENT: Reports: no symptoms Cardiovascular: Reports: no symptoms Respiratory: Reports: cough, shortness of breath Gastrointestinal/Abdominal: Reports: difficulty swallowing Genitourinary: Reports: no symptoms Neurologic/Psychiatric: Reports: pre-existing deficit, seizure Endocrine: Reports: no symptoms Hematologic/Lymphatic: Reports: no symptoms Allergies: Coded Allergies: CODEINE (Verified Allergy, Unknown, HIVES, 09/15/09) All Systems: reviewed and negative except above Subjective better today. less congestion. less secretions. labs reviewed. no bleeding, cxr unchanged. Objective Last 24 Hour Vital Signs Date Time Temp Pulse Resp B/P (MAP) Pulse Ox O2 Delivery O2 Flow Rate FiO2 02/22/19 10:28 78 20 98 T-Piece 8.0 30 76 22 96 02/22/19 10:00 77 25 114/43 (66) 99 77 02/22/19 09:05 82 20 99 T-Piece 8.0 30 83 25 99 02/22/19 09:00 82 120/55 02/22/19 09:00 78 25 120/55 (76) 99 78 02/22/19 08:00 79 02/22/19 08:00 8.0 30 02/22/19 08:00 98.6 74 0 107/43 (64) 98 74 02/22/19 07:00 80 22 122/52 (75) 99 02/22/19 06:55 99 T-Piece 8.0 30 02/22/19 06:00 76 22 128/50 (76) 99 02/22/19 05:00 77 22 125/48 (73) 99 02/22/19 04:00 81 02/22/19 04:00 8.0 30 02/22/19 04:00 98.1 81 22 155/52 (86) 100 02/22/19 03:45 76 24 100 T-Piece 8.0 30 74 23 100 02/22/19 03:00 81 22 137/99 (112) 99 02/22/19 02:00 77 23 113/50 (71) 99 02/22/19 01:14 100 T-Piece 8.0 30 02/22/19 01:00 76 23 119/49 (72) 99 02/22/19 00:00 98.0 79 22 120/52 (74) 100 02/22/19 00:00 73 02/22/19 00:00 8.0 30 02/21/19 23:23 78 22 100 T-Piece 8.0 30 76 26 100 02/21/19 23:00 75 24 158/69 (98) 100 02/21/19 22:00 71 22 112/51 (71) 100 02/21/19 21:29 74 22 100 T-Piece 8.0 30 75 23 100 02/21/19 21:00 74 24 144/61 (88) 100 02/21/19 20:32 79 135/55 02/21/19 20:00 8.0 30 02/21/19 20:00 74 02/21/19 20:00 98.5 79 22 135/55 (81) 99 02/21/19 19:03 100 T-Piece 8.0 30 02/21/19 19:02 72 19 100 T-Piece 8.0 30 74 21 100 02/21/19 19:00 74 24 142/54 (83) 100 71 02/21/19 18:00 71 24 137/61 (86) 100 02/21/19 17:00 72 21 138/60 (86) 100 02/21/19 16:00 10.0 30 02/21/19 16:00 67 02/21/19 16:00 97.6 70 22 131/77 (95) 100 02/21/19 16:00 T-piece 10.0 02/21/19 15:12 69 20 100 T-Piece 8.0 30 67 19 100 02/21/19 15:00 80 19 114/56 (75) 100 02/21/19 14:00 76 19 139/58 (85) 100 02/21/19 13:44 99 T-Piece 8.0 30 02/21/19 13:00 72 23 143/65 (91) 100 02/21/19 12:00 97.7 70 20 115/80 (92) 100 02/21/19 12:00 10.0 30 02/21/19 12:00 T-piece 10.0 02/21/19 12:00 71 02/21/19 11:00 76 22 152/63 (92) 100 02/21/19 10:55 79 23 100 T-Piece 8.0 30 70 25 100 Intake and Output 02/21/19 02/22/19 18:59 06:59 Intake Total 1590 ml 420 ml Output Total 540 ml 540 ml Balance 1050 ml -120 ml Free Water 120 ml IV Total 1050 ml Tube Feeding 420 ml 420 ml Output Urine Total 540 ml 540 ml # Bowel Movements 1 Height (Feet): 5 Height (Inches): 5.00 Weight (Pounds): 180 Objective General Appearance: WD/WN, confused. on trach collar Neck: supple Cardiovascular: normal rate, regular rhythm Respiratory/Chest: chest wall non-tender, rhonchi - bilaterally(minimal) Abdomen: normal bowel sounds, non tender, soft, no organomegaly Edema: no edema noted Arm (L), no edema noted Arm (R), no edema noted Leg (L), no edema noted Leg (R), no edema noted Pedal (L), no edema noted Pedal (R), no edema noted Generalized Neurologic: disoriented, unresponsive, aphasia Irvin Beltrán MD Feb 22, 2019 10:34
--- NOTE | 2019-02-22 10:40 | Infectious Diseases Prog Note ---
Assessment/Plan Assessment/Plan A 1. Providencia & Klebsiella pneumonia 2. respiratory failure 3. hypertension 4. CVA 5. dementia 6. sacral decubitus ulcer 7. rectal VRE colonization 8. Anemia 9. Proteus UTI 10. Acute renal failure 11. Leukocytosis P 1. Continue Amikacin inhaler X 4 days 2. Frequent suctioning Subjective ROS Limited/Unobtainable: Yes Constitutional: Denies: fever Allergies: Coded Allergies: CODEINE (Verified Allergy, Unknown, HIVES, 09/15/09) Objective Vital Signs Last 24 Hour Vital Signs Date Time Temp Pulse Resp B/P (MAP) Pulse Ox O2 Delivery O2 Flow Rate FiO2 02/22/19 10:28 78 20 98 T-Piece 8.0 30 76 22 96 02/22/19 10:00 77 25 114/43 (66) 99 77 02/22/19 09:05 82 20 99 T-Piece 8.0 30 83 25 99 02/22/19 09:00 82 120/55 02/22/19 09:00 78 25 120/55 (76) 99 78 02/22/19 08:00 79 02/22/19 08:00 8.0 30 02/22/19 08:00 98.6 74 0 107/43 (64) 98 74 02/22/19 07:00 80 22 122/52 (75) 99 02/22/19 06:55 99 T-Piece 8.0 30 02/22/19 06:00 76 22 128/50 (76) 99 02/22/19 05:00 77 22 125/48 (73) 99 02/22/19 04:00 81 02/22/19 04:00 8.0 30 02/22/19 04:00 98.1 81 22 155/52 (86) 100 02/22/19 03:45 76 24 100 T-Piece 8.0 30 74 23 100 02/22/19 03:00 81 22 137/99 (112) 99 02/22/19 02:00 77 23 113/50 (71) 99 02/22/19 01:14 100 T-Piece 8.0 30 02/22/19 01:00 76 23 119/49 (72) 99 02/22/19 00:00 98.0 79 22 120/52 (74) 100 02/22/19 00:00 73 02/22/19 00:00 8.0 30 02/21/19 23:23 78 22 100 T-Piece 8.0 30 76 26 100 02/21/19 23:00 75 24 158/69 (98) 100 02/21/19 22:00 71 22 112/51 (71) 100 02/21/19 21:29 74 22 100 T-Piece 8.0 30 75 23 100 02/21/19 21:00 74 24 144/61 (88) 100 02/21/19 20:32 79 135/55 02/21/19 20:00 8.0 30 02/21/19 20:00 74 02/21/19 20:00 98.5 79 22 135/55 (81) 99 02/21/19 19:03 100 T-Piece 8.0 30 02/21/19 19:02 72 19 100 T-Piece 8.0 30 74 21 100 02/21/19 19:00 74 24 142/54 (83) 100 71 02/21/19 18:00 71 24 137/61 (86) 100 02/21/19 17:00 72 21 138/60 (86) 100 02/21/19 16:00 10.0 30 02/21/19 16:00 67 02/21/19 16:00 97.6 70 22 131/77 (95) 100 02/21/19 16:00 T-piece 10.0 02/21/19 15:12 69 20 100 T-Piece 8.0 30 67 19 100 02/21/19 15:00 80 19 114/56 (75) 100 02/21/19 14:00 76 19 139/58 (85) 100 02/21/19 13:44 99 T-Piece 8.0 30 02/21/19 13:00 72 23 143/65 (91) 100 02/21/19 12:00 97.7 70 20 115/80 (92) 100 02/21/19 12:00 10.0 30 02/21/19 12:00 T-piece 10.0 02/21/19 12:00 71 02/21/19 11:00 76 22 152/63 (92) 100 02/21/19 10:55 79 23 100 T-Piece 8.0 30 70 25 100 Height (Feet): 5 Height (Inches): 5.00 Weight (Pounds): 180 General Appearance: no acute distress HEENT: status post trach Respiratory/Chest: lungs clear, other - on T bar Cardiovascular: normal rate, other - R arm PICC line Abdomen: soft, non tender, other - GT feeding Extremities: no edema Neurologic/Psychiatric: aphasia Musculoskeletal: atrophy Current Medications Medications (Trade) Dose Ordered Sig/Maicol Route PRN Reason Start Time Stop Time Status Last Admin Dose Admin Acetaminophen (Tylenol) 650 mg Q4H PRN GT Mild Pain/Temp > 100.5 02/18/19 05:44 03/05/19 05:43 Acetylcysteine (Mucomyst) 100 mg Q4HRT HHN 02/18/19 07:00 03/03/19 12:59 02/22/19 10:27 Albuterol/ Ipratropium (Albuterol/ Ipratropium) 3 ml Q4H PRN HHN Shortness of Breath 02/22/19 07:07 02/27/19 07:06 02/22/19 10:27 Amikacin Sulfate (Amikin) 500 mg Q12HR@ INH 02/20/19 22:00 02/27/19 21:59 02/22/19 09:04 Ascorbic Acid (Vitamin C) 250 mg DAILY GT 02/18/19 09:00 02/24/19 08:59 02/22/19 09:42 Atropine Sulfate (Atropine Opth Adriana) 1 drop TID SL 02/18/19 09:00 03/12/19 09:29 02/22/19 09:49 Bisacodyl (Dulcolax) 10 mg PRN PRN RECTAL Constipation 02/18/19 05:30 02/23/19 05:29 Chlorhexidine Gluconate (Cesilia-Hex 2%) 1 applic DAILY@1999 TOPIC 02/18/19 20:00 03/12/19 19:59 02/21/19 19:58 Heparin Sodium (Porcine) (Heparin 5000 units/ml) 5,000 units EVERY 12 HOURS SUBQ 02/18/19 09:00 03/16/19 23:14 02/22/19 09:44 Hydralazine HCl (Apresoline) 25 mg Q4H PRN GT SBP above 160 02/18/19 05:46 03/09/19 05:45 Levetiracetam (Keppra) 750 mg Q12HR GT 02/18/19 09:00 03/16/19 23:29 02/22/19 09:42 Metoclopramide HCl (Reglan) 10 mg Q6H PRN IVP Nausea & Vomiting 02/18/19 05:46 03/09/19 05:45 Metoprolol Tartrate (Lopressor) 25 mg Q12HR GT 02/18/19 09:00 03/16/19 23:29 02/21/19 20:32 Ondansetron HCl (Zofran) 4 mg Q6H PRN GT Nausea & Vomiting 02/18/19 05:46 02/23/19 05:45 Pantoprazole (Protonix) 40 mg Q12HR IVP 02/18/19 09:00 03/16/19 23:29 02/22/19 09:42 Chauncey Liriano MD Feb 22, 2019 10:40
--- NOTE | 2019-02-22 11:00 | NUR ---
NURSE NOTES: Received hand-off report from Ifeanyi PAEZ. Pt has eyes closed and is only responsive to pain. Pt has trach Shiley 6 XLT connected to T-piece on cool aerosol on 30% FIO2 with 100% O2sat. Bilateral rales are noted on auscultation. burglar alarm mechanic displays NSR, heart rate 86. Temp 98.8F axillary. Pt has GT with feeding Glucerna 1.5 infusing at goal rate of 35ml/hour with zero residual. Abdomen is large, round, soft, nontender to touch with hypoactive bowel sounds. Right upper arm double lumen PICC is present, patent, intact, currently on TKO. External female catheter is present, draining cloudy/yellow urine. Skin has sacral and bilateral hip/buttock wounds, bilateral heel DTI, left hand blister, all covered with optifoam dressings, dry/intact. Pt is on pressure releasing mattress, with bilateral extremities elevated on pillows. Bed is locked, head of bed at 30 degrees, three side rails up, in lowest position and call light within easy reach. Will continue to monitor pt and follow plan of care per MD orders and protocol.
--- NOTE | 2019-02-22 11:35 | Nephrology Progress Note ---
Assessment/Plan Problem List: (1) Acute renal failure (ARF) Assessment: Cr stable (2) Chronic respiratory failure (3) Anemia (4) Sepsis Assessment Acute renal failure Respiratory failure - Trach Low Mag- Low k , Low Na Anemia UTI / Sepsis Proteinuria / HypoAlbuminemia high Trigs Sz decubs bed bound DNR Plan K and Mag and Phos supplement as needed Hydrate Urine studies avoid Nephrotoxics mag K Phos supplements as needed monitor renal parameters Subjective ROS Limited/Unobtainable: Yes Constitutional: Reports: malaise Objective Objective Last 24 Hour Vital Signs Date Time Temp Pulse Resp B/P (MAP) Pulse Ox O2 Delivery O2 Flow Rate FiO2 02/22/19 11:00 84 26 124/45 (71) 98 77 02/22/19 10:28 78 20 98 T-Piece 8.0 30 76 22 96 02/22/19 10:00 77 25 114/43 (66) 99 77 02/22/19 09:05 82 20 99 T-Piece 8.0 30 83 25 99 02/22/19 09:00 82 120/55 02/22/19 09:00 78 25 120/55 (76) 99 78 02/22/19 08:00 79 02/22/19 08:00 8.0 30 02/22/19 08:00 98.6 74 0 107/43 (64) 98 74 02/22/19 07:00 80 22 122/52 (75) 99 02/22/19 06:55 99 T-Piece 8.0 30 02/22/19 06:00 76 22 128/50 (76) 99 02/22/19 05:00 77 22 125/48 (73) 99 02/22/19 04:00 81 02/22/19 04:00 8.0 30 02/22/19 04:00 98.1 81 22 155/52 (86) 100 02/22/19 03:45 76 24 100 T-Piece 8.0 30 74 23 100 02/22/19 03:00 81 22 137/99 (112) 99 02/22/19 02:00 77 23 113/50 (71) 99 02/22/19 01:14 100 T-Piece 8.0 30 02/22/19 01:00 76 23 119/49 (72) 99 02/22/19 00:00 98.0 79 22 120/52 (74) 100 02/22/19 00:00 73 02/22/19 00:00 8.0 30 02/21/19 23:23 78 22 100 T-Piece 8.0 30 76 26 100 02/21/19 23:00 75 24 158/69 (98) 100 02/21/19 22:00 71 22 112/51 (71) 100 02/21/19 21:29 74 22 100 T-Piece 8.0 30 75 23 100 02/21/19 21:00 74 24 144/61 (88) 100 02/21/19 20:32 79 135/55 02/21/19 20:00 8.0 30 02/21/19 20:00 74 02/21/19 20:00 98.5 79 22 135/55 (81) 99 02/21/19 19:03 100 T-Piece 8.0 30 02/21/19 19:02 72 19 100 T-Piece 8.0 30 74 21 100 02/21/19 19:00 74 24 142/54 (83) 100 71 02/21/19 18:00 71 24 137/61 (86) 100 02/21/19 17:00 72 21 138/60 (86) 100 02/21/19 16:00 10.0 30 02/21/19 16:00 67 02/21/19 16:00 97.6 70 22 131/77 (95) 100 02/21/19 16:00 T-piece 10.0 02/21/19 15:12 69 20 100 T-Piece 8.0 30 67 19 100 02/21/19 15:00 80 19 114/56 (75) 100 02/21/19 14:00 76 19 139/58 (85) 100 02/21/19 13:44 99 T-Piece 8.0 30 02/21/19 13:00 72 23 143/65 (91) 100 02/21/19 12:00 97.7 70 20 115/80 (92) 100 02/21/19 12:00 10.0 30 02/21/19 12:00 T-piece 10.0 02/21/19 12:00 71 Intake and Output 02/21/19 02/22/19 18:59 06:59 Intake Total 1590 ml 420 ml Output Total 540 ml 540 ml Balance 1050 ml -120 ml Free Water 120 ml IV Total 1050 ml Tube Feeding 420 ml 420 ml Output Urine Total 540 ml 540 ml # Bowel Movements 1 Height (Feet): 5 Height (Inches): 5.00 Weight (Pounds): 180 Neck: other - trach Cardiovascular: normal rate Respiratory/Chest: decreased breath sounds Abdomen: distended Eric Cortez MD Feb 22, 2019 11:35
--- NOTE | 2019-02-22 12:40 | Surgery Progress Note ---
Surgery Progress Note Subjective Additional Comments no acute events Objective Last 24 Hour Vital Signs Date Time Temp Pulse Resp B/P (MAP) Pulse Ox O2 Delivery O2 Flow Rate FiO2 02/22/19 11:00 84 26 124/45 (71) 98 77 02/22/19 10:28 78 20 98 T-Piece 8.0 30 76 22 96 02/22/19 10:00 77 25 114/43 (66) 99 77 02/22/19 09:05 82 20 99 T-Piece 8.0 30 83 25 99 02/22/19 09:00 82 120/55 02/22/19 09:00 78 25 120/55 (76) 99 78 02/22/19 08:00 79 02/22/19 08:00 8.0 30 02/22/19 08:00 98.6 74 0 107/43 (64) 98 74 02/22/19 07:00 80 22 122/52 (75) 99 02/22/19 06:55 99 T-Piece 8.0 30 02/22/19 06:00 76 22 128/50 (76) 99 02/22/19 05:00 77 22 125/48 (73) 99 02/22/19 04:00 81 02/22/19 04:00 8.0 30 02/22/19 04:00 98.1 81 22 155/52 (86) 100 02/22/19 03:45 76 24 100 T-Piece 8.0 30 74 23 100 02/22/19 03:00 81 22 137/99 (112) 99 02/22/19 02:00 77 23 113/50 (71) 99 02/22/19 01:14 100 T-Piece 8.0 30 02/22/19 01:00 76 23 119/49 (72) 99 02/22/19 00:00 98.0 79 22 120/52 (74) 100 02/22/19 00:00 73 02/22/19 00:00 8.0 30 02/21/19 23:23 78 22 100 T-Piece 8.0 30 76 26 100 02/21/19 23:00 75 24 158/69 (98) 100 02/21/19 22:00 71 22 112/51 (71) 100 02/21/19 21:29 74 22 100 T-Piece 8.0 30 75 23 100 02/21/19 21:00 74 24 144/61 (88) 100 02/21/19 20:32 79 135/55 02/21/19 20:00 8.0 30 02/21/19 20:00 74 02/21/19 20:00 98.5 79 22 135/55 (81) 99 02/21/19 19:03 100 T-Piece 8.0 30 02/21/19 19:02 72 19 100 T-Piece 8.0 30 74 21 100 02/21/19 19:00 74 24 142/54 (83) 100 71 02/21/19 18:00 71 24 137/61 (86) 100 02/21/19 17:00 72 21 138/60 (86) 100 02/21/19 16:00 10.0 30 02/21/19 16:00 67 02/21/19 16:00 97.6 70 22 131/77 (95) 100 02/21/19 16:00 T-piece 10.0 02/21/19 15:12 69 20 100 T-Piece 8.0 30 67 19 100 02/21/19 15:00 80 19 114/56 (75) 100 02/21/19 14:00 76 19 139/58 (85) 100 02/21/19 13:44 99 T-Piece 8.0 30 02/21/19 13:00 72 23 143/65 (91) 100 I&O Intake and Output 02/21/19 02/22/19 18:59 06:59 Intake Total 1590 ml 420 ml Output Total 540 ml 540 ml Balance 1050 ml -120 ml Free Water 120 ml IV Total 1050 ml Tube Feeding 420 ml 420 ml Output Urine Total 540 ml 540 ml # Bowel Movements 1 Dressing: other Wound: other Drains: other Cardiovascular: RSR Respiratory: decreased breath sounds Abdomen: soft, present bowel sounds Extremities: no cyanosis Plan Problems: (1) Sacral decubitus ulcer Assessment & Plan: This is a 83-year-old female with multiple medical committees that is currently admitted for medical care and management and identified to have multiple wounds requiring care. On admission patient noted to have a resolved sacral decubitus ulcer. Has had prior care and is well-healed at this time. Will ensure it does not open up again. Patient has a right ischial decubitus ulcer that is resolved. Scar intact and well formed. Will monitor to ensure it does not open up again. Patient has a left ischial decubitus ulcer that can be identified to be stage IV with palpable bone that has been resolving as noted by the periwound tissue and scar but open area approximately 1 cm x 1.5 cm few millimeters deep to bone identified. Unsure if this is been to be completely healed prior and has since opened or if has been healing at this level. No foul odor no drainage was unsure local wound care until healed Bilateral heels soft without signs of injury Resolving pressure injury L ischium(L)1.8cm x (W)1cm.Scattered biofilm at base of wound. Edges flat and adherent with surrounding hyperpigmentation. No odor or exudate noted. Sacrum is pale pink with surrounding hyperpigmentation. Hyperpigmentation R ischium with small sheared area centrally.No areas of erythema or exudate noted. Both heels are soft but blanchable. Skin Assessed under collar of trach and no evidence of skin breakdown noted. All wound Tx. are effective and continued as ordered. Pt ahs an APM/Belén mattress overlay and is being repositioned per protocols and per tolerance.No new skin concerns noted. Treatment plan: Please apply skin protectant and optifoam to sacral area. Change every 3 days Please apply skin protectant and optifoam to right ischial area. Change every 3 days Please apply Thera honey infused gauze to small opening in the left ischial wound bed followed by skin protectant in the periwound and up to foam. Change daily as needed saturation Apply Xeroform and dressing over left hand blister. Offload pressure from heels with pillow Air soft mattress Turn every 2 hours Nutritional optimization We will monitor follow with recommendations (2) Sepsis Assessment & Plan: IV abx as per ID trend labs improving wounds unlikely etiology likely respiratory imaging noted and okay abnormal lft's stable PICC on Abx in ICU for desaturation CXR with consolidation Evidence of left lower lobe pneumonia, also previously demonstrated Gastrostomy in good position Mild diastasis of the rectus abdominis musculature again demonstrated Retrosacral decubitus changes, better depicted on prior exam which included the pelvis Small hiatal hernia with evidence of trace gastroesophageal reflux (3) Feeding by G-tube Assessment & Plan: DAILY ESTIMATED NEEDS: Needs based on Pulmonary, wounds, bedbound/ 60kg adj 25-28 kcals/kg 2370-6152 total kcals 1.25-2 g protein/kg 75-120 g total protein 25-30 mL/kg 1581-6948 total fluid mLs NUTRITION DIAGNOSIS: * Swallowing difficulty R/T respiratory status as evidenced by pt on T-collar, now back the vent, PEG dep, TF changed to low rate at this time due to episodes of vomiting + residuals. * Increased kcal/prot needs R/T wound healing as evidenced by BL buttocks and sacral wound photos, refer to WC eval. (CURRENT TF:Glucerna 1.5 @35ml) ENTERAL NUTRITION RECOMMENDATIONS: VITAL AF 1.2 @ 55ml/hr x 24 hrs to provide 1320ml, 1584kcal, 99g prot, 1060ml free water - Once medically appropriate to resume TF, rec to initiate elemental and carb control formula of Vital 1.2 for possible improved tolerance - Initiate VITAL 1.2 @ 25ml/hr x 6hrs, advance 10ml q 4-6 hrs as tolerated to goal rate - Flush per MD/ HOB over 30 degrees ADDITIONAL RECOMMENDATIONS: 1) Re-calibrated bedscale wt for accurate CBW 2) Wound healing: Add Cristian 1pkt BID w/ improved Tf tolerace + MVI x1 daily 3) Monitor lytes, replete as needed (low Mg, K) 4) Monitor NPO status, ability to resume TF. -> held on and off due to vomiting since 02/02 5) SSI prn resume tube feeds (4) Chronic vegetative state Assessment & Plan: incontinence of urine and stool. can soil dressings. nurses doing great job with monitoring and changing prn (5) Leukocytosis Walter Madera Feb 22, 2019 12:40
--- NOTE | 2019-02-22 13:00 | NUR ---
NURSE NOTES: VS remain stable. Oral care was done and pt suctioned. Pt was repositioned. Pt is tolerating GT feeding well with no residual. Purewhick external female catheter is draining cloudy/yellow urine. Pt remains afebrile.
--- NOTE | 2019-02-22 15:00 | NUR ---
NURSE NOTES: Pt was cleaned, gown/bed linens were changed. Oral care was done and pt suctioned. Pt has moderate amount of clear/white secretions. VS remains stable. Wound dressings were changed and pt repositioned with bilateral extremities elevated on pillows. Pt is resting with no signs/symptoms of any distress noted.
--- NOTE | 2019-02-22 18:20 | NUR ---
NURSE NOTES: Pt was cleaned and repositioned. Oral care was done and pt suctioned. VS remain stable. Pt is resting in no apparent distress.
--- NOTE | 2019-02-22 19:30 | NUR ---
NURSE NOTES: Received report from JEANNINE Rodriguez. Pt is sleeping on the bed and obtunded and able to response to pain stimuli. No sign of acute cardio/respiratory distress note. Pt has trach, Shiley 6 XLT attached to T-piece with FIO2 30%, O2 8L and SaO2 100% noted. Given oral and tracheal suction and provided oral care. quality assurance monitor final with SR with HR: 93's. Noted generalized/peripheral edema. Pt has right upper arm PICC and dressing is cleaned and dry and on sign of infiltration noted. On G-tube feeding Glucerna 1.5 @ 35ml/hour and no residual noted. Keep HOB. Pt has purewicks and in placed. Dressing is clean and dry on wound area. On Placed fall and seizure precaution. Will continue to care plan.
--- NOTE | 2019-02-22 19:35 | NUR ---
HAND-OFF: Report given to Lorenza PAEZ. VS remain stable. Endorsed plan of care.
[2019-02-22] MEDS: Dyna-Hex 2% Top Sol 2oz TOPIC SCH (20:02)
--- NOTE | 2019-02-22 20:45 | Progress Note ---
DATE: 02/22/2019 CARDIOLOGY PROGRESS NOTE SUBJECTIVE: The patient's condition remains serious with guarded prognosis. She is somewhat less congested with less secretions. She remains on T-tube. OBJECTIVE: VITAL SIGNS: Blood pressure 114/43, pulse 77, respirations 25. LUNGS: Bilateral breath sounds. Rhonchi. CARDIAC: Regular rhythm and rate. Normal S1, S2. ABDOMEN: Soft. G-tube intact. EXTREMITIES: Trace edema. LABORATORY DATA: Labs from 02/21/2019 were noted. IMPRESSION: 1. Acute on chronic diastolic congestive heart failure. 2. Hypomagnesemia. 3. Respiratory failure. 4. Sepsis with shock, recovering. 5. Advanced dementia. 6. Severe protein-calorie malnutrition. PLAN: 1. Replace electrolytes including magnesium and phosphorus as needed. 2. Periodic diuresis. 3. Nutritional support by feeding tube. 4. Respiratory hygiene. 5. Antimicrobials per Infectious Disease organization development consultant. 6. DVT and stress ulcer prophylaxes. 7. Cautious use of beta-martha at this time. Bg Hagen M.D. DR: IOANA JOB#: [id number] CC:
--- NOTE | 2019-02-22 22:00 | NUR ---
NURSE NOTES: Given bed bath. Cleaned Pt and applied lotion and cream. Changed position. Provided oral and tracheal suction. Placed fall and seizure precaution. Will continue to monitor any change of condition.
[2019-02-23] VITALS (25 sets, daily range): BP systolic 96–146; BP diastolic 38–80
--- NOTE | 2019-02-23 | NUR ---
NURSE NOTES: Pt is resting on the bed and no sign of acute distress noted. Family; daughter stays at bedside and talking with somebody by phone. V/S stable. No fever. Tolerated well with O2 8L, FiO2 30% via T-Piece. No sign of pain by FLACC scale. Given tracheal and oral suction. Provided oral care. Changed position. On G-tube feeding with Glucerna 1.5@ 35cc/hr and no residual noted. Placed fall and seizure precaution. Will continue to monitor any change of condition.
--- NOTE | 2019-02-23 02:00 | NUR ---
NURSE NOTES: Pt is sleeping on the bed and family; daughter stays at bedside. V/S stable. Given oral care and suction. On G-tube feeding and tolerated well and no residual noted. Will continue to monitor any change of condition.
[2019-02-23] MEDS: Albuterol/Ipratropium 3ml neb HHN PRN ×6 (02:55→23:37)
--- NOTE | 2019-02-23 04:00 | NUR ---
NURSE NOTES: Morning care was done. Cleaned Pt and applied lotion and cream. Given oral care. Changed position. V/S stable. Will continue to monitor any change of condition.
[2019-02-23 04:55] LABS: BASOPHILS % (AUTO) 0.7 % (0.0-2.0); EOSINOPHILS % (AUTO) 3.1 % (0.0-3.0); HEMATOCRIT 26.2 % (37.0-47.0); HEMOGLOBIN 8.5 G/DL (12.0-16.0); LYMPHOCYTES % (AUTO) 26.6 % (20.0-45.0); MEAN CORPUSCULAR VOLUME 85 FL (80-99); MONOCYTES % (AUTO) 6.1 % (1.0-10.0); NEUTROPHILS % (AUTO) 63.5 % (45.0-75.0); PLATELET COUNT 276 K/UL (150-450); RED BLOOD COUNT 3.08 M/UL (4.20-5.40); RED CELL DISTRIBUTION WIDTH 16.5 % (11.6-14.8); WHITE BLOOD COUNT 11.3 K/UL (4.8-10.8)
[2019-02-23 05:20] LABS: ALANINE AMINOTRANSFERASE 16 U/L (12-78); ALBUMIN 2.3 G/DL (3.4-5.0); ALBUMIN/GLOBULIN RATIO 0.4 (1.0-2.7); ALKALINE PHOSPHATASE 132 U/L (46-116); ANION GAP 2 mmol/L (5-15); ASPARTATE AMINO TRANSFERASE 18 U/L (15-37); BILIRUBIN,TOTAL 0.2 MG/DL (0.2-1.0); BLOOD UREA NITROGEN 25 mg/dL (7-18); CALCIUM 8.4 MG/DL (8.5-10.1); CARBON DIOXIDE 34 MMOL/L (21-32); CHLORIDE 107 MMOL/L (98-107); CREATININE 1.2 MG/DL (0.55-1.30); PHOSPHORUS 3.3 MG/DL (2.5-4.9); POTASSIUM 4.9 MMOL/L (3.5-5.1); SODIUM 143 MMOL/L (136-145)
--- NOTE | 2019-02-23 06:00 | NUR ---
NURSE NOTES: No sign of acute distress noted. Cleaned Pt. Repositioned. Given suction and oral care. Will continue to monitor any change of condition.
--- NOTE | 2019-02-23 07:21 | NUR ---
HAND-OFF: Report given to JEANNINE Howard. Pt is resting on the bed and no sign of acute distress noted.
--- NOTE | 2019-02-23 07:26 | NUR ---
NURSE NOTES: Received report from JEANNINE Britt. Patient is obtunded. Anita 6 XLT with FiO2 30%. Gtube intact, clean and running with Glucerna 1.5 @35ml/hr. Purewick intact and suctioning to canister with yellow color urine. Left upper arm PICC intact and clean with TKO. On P200 mattress for wound management. Kept dry, clean, comfortable and HOB>30. Will continue plan of care.
--- NOTE | 2019-02-23 08:07 | General Progress Note ---
Assessment/Plan Problem List: (1) Seizure ICD Codes: R56.9 - Unspecified convulsions SNOMED: 82371366 (2) Anemia ICD Codes: D64.9 - Anemia, unspecified SNOMED: 057983460 Qualifiers: Qualified Codes: D64.9 - Anemia, unspecified (3) Sepsis ICD Codes: A41.9 - Sepsis, unspecified organism SNOMED: 30275693, 942540443 Qualifiers: Qualified Codes: A41.9 - Sepsis, unspecified organism (4) Respiratory failure with hypoxia ICD Codes: J96.91 - Respiratory failure, unspecified with hypoxia SNOMED: 67363003600471134 Qualifiers: Qualified Codes: J96.21 - Acute and chronic respiratory failure with hypoxia (5) HCAP (healthcare-associated pneumonia) ICD Codes: J18.9 - Pneumonia, unspecified organism SNOMED: 165370058, 889436672 (6) Sacral decubitus ulcer ICD Codes: L89.159 - Pressure ulcer of sacral region, unspecified stage SNOMED: 857183976 (7) HTN (hypertension) ICD Codes: I10 - Essential (primary) hypertension SNOMED: 26630728 (8) Chronic vegetative state ICD Codes: R40.3 - Persistent vegetative state SNOMED: 09781403 (9) Chronic respiratory failure ICD Codes: J96.10 - Chronic respiratory failure, unspecified whether with hypoxia or hypercapnia SNOMED: 51076118 (10) Limited mobility ICD Codes: Z74.09 - Other reduced mobility SNOMED: 5829259 Status: stable, progressing Assessment/Plan: vent prn as needed resp rx suctioning as needed gt feeds monitor for vomiting bowel regime monitor residuals sx rx repeat sputum culture transfuse prn dc planning Subjective ROS Limited/Unobtainable: Yes Constitutional: Reports: malaise, weakness HEENT: Reports: no symptoms Cardiovascular: Reports: no symptoms Respiratory: Reports: cough, shortness of breath Gastrointestinal/Abdominal: Reports: difficulty swallowing Genitourinary: Reports: no symptoms Neurologic/Psychiatric: Reports: pre-existing deficit, seizure Endocrine: Reports: no symptoms Hematologic/Lymphatic: Reports: anemia Allergies: Coded Allergies: CODEINE (Verified Allergy, Unknown, HIVES, 09/15/09) All Systems: reviewed and negative except above Subjective no events. remains on the vent. congested. no fever or chills. D/w RT. no new concerns Objective Last 24 Hour Vital Signs Date Time Temp Pulse Resp B/P (MAP) Pulse Ox O2 Delivery O2 Flow Rate FiO2 02/23/19 07:10 98 T-Piece 8.0 30 02/23/19 07:09 80 22 99 T-Piece 8.0 30 76 28 98 02/23/19 07:00 76 24 135/71 (92) 98 02/23/19 06:00 79 26 125/53 (77) 99 02/23/19 05:00 77 28 107/41 (63) 97 02/23/19 04:00 81 02/23/19 04:00 8.0 30 02/23/19 04:00 98.1 76 27 104/42 (62) 98 02/23/19 03:00 81 24 109/45 (66) 98 02/23/19 02:56 77 25 100 T-Piece 8.0 30 75 24 100 02/23/19 02:00 80 20 146/80 (102) 97 02/23/19 01:03 100 T-Piece 8.0 30 02/23/19 01:00 79 22 110/38 (62) 97 02/23/19 00:00 T-piece 8.0 02/23/19 00:00 98.2 86 24 135/56 (82) 99 02/23/19 00:00 8.0 30 02/23/19 00:00 87 02/22/19 23:11 85 24 100 T-Piece 8.0 30 85 25 100 02/22/19 23:00 82 25 137/55 (82) 98 02/22/19 22:00 83 22 139/60 (86) 97 02/22/19 21:04 85 24 100 T-Piece 8.0 30 87 22 100 02/22/19 21:00 89 20 125/51 (75) 97 02/22/19 20:44 91 120/57 02/22/19 20:00 92 02/22/19 20:00 98.1 90 22 120/57 (78) 99 02/22/19 20:00 8.0 30 02/22/19 20:00 T-piece 8.0 02/22/19 19:00 92 20 126/57 (80) 95 02/22/19 18:47 98 T-Piece 10.0 35 02/22/19 18:46 104 21 100 T-Piece 8.0 30 103 23 98 02/22/19 18:00 90 25 131/63 (85) 95 02/22/19 17:00 96 21 152/78 (102) 96 02/22/19 17:00 1 21 152/78 (102) 96 02/22/19 16:00 98.9 100 28 139/90 (106) 97 02/22/19 16:00 111 02/22/19 16:00 8.0 40 02/22/19 16:00 113 22 139/99 (112) 96 02/22/19 16:00 T-piece 10.0 02/22/19 15:24 106 28 100 T-Piece 8.0 30 100 18 100 02/22/19 15:00 80 26 112/89 (97) 98 02/22/19 14:00 86 26 119/62 (81) 99 02/22/19 13:11 95 T-Piece 12.0 40 02/22/19 13:00 95 21 119/62 (81) 97 02/22/19 12:00 87 02/22/19 12:00 8.0 30 02/22/19 12:00 T-piece 10.0 02/22/19 12:00 95 21 120/50 (73) 97 02/22/19 11:00 98.7 84 26 124/45 (71) 98 77 02/22/19 10:28 78 20 98 T-Piece 8.0 30 76 22 96 02/22/19 10:00 77 25 114/43 (66) 99 77 02/22/19 09:05 82 20 99 T-Piece 8.0 30 83 25 99 02/22/19 09:00 82 120/55 02/22/19 09:00 78 25 120/55 (76) 99 78 Intake and Output 02/22/19 02/23/19 19:00 07:00 Intake Total 540 ml 420 ml Output Total 470 ml 601 ml Balance 70 ml -181 ml Free Water 120 ml Tube Feeding 420 ml 420 ml Output Urine Total 470 ml 600 ml Stool Total 1 ml # Bowel Movements 3 1 Laboratory Tests 02/23/19 04:00: White Blood Count 11.3H, Red Blood Count 3.08L, Hemoglobin 8.5L, Hematocrit 26.2L, Mean Corpuscular Volume 85, Mean Corpuscular Hemoglobin 27.4, Mean Corpuscular Hemoglobin Concent 32.3, Red Cell Distribution Width 16.5H, Platelet Count 276, Mean Platelet Volume 4.9L, Neutrophils (%) (Auto) 63.5, Lymphocytes (%) (Auto) 26.6, Monocytes (%) (Auto) 6.1, Eosinophils (%) (Auto) 3.1H, Basophils (%) (Auto) 0.7, Sodium Level 143, Potassium Level 4.9, Chloride Level 107, Carbon Dioxide Level 34H, Anion Gap 2L, Blood Urea Nitrogen 25H, Creatinine 1.2, Estimat Glomerular Filtration Rate , Glucose Level 99, Calcium Level 8.4L, Phosphorus Level 3.3, Magnesium Level 2.4, Total Bilirubin 0.2, Aspartate Amino Transf (AST/SGOT) 18, Alanine Aminotransferase (ALT/SGPT) 16, Alkaline Phosphatase 132H, Pro-B-Type Natriuretic Peptide 469H, Total Protein 7.5, Albumin 2.3L, Globulin 5.2, Albumin/Globulin Ratio 0.4L Height (Feet): 5 Height (Inches): 5.00 Weight (Pounds): 180 Objective General Appearance: WD/WN, confused. on trach collar Neck: supple Cardiovascular: normal rate, regular rhythm Respiratory/Chest: chest wall non-tender, rhonchi - bilaterally(minimal) Abdomen: normal bowel sounds, non tender, soft, no organomegaly Edema: no edema noted Arm (L), no edema noted Arm (R), no edema noted Leg (L), no edema noted Leg (R), no edema noted Pedal (L), no edema noted Pedal (R), no edema noted Generalized Neurologic: disoriented, unresponsive, aphasia Irvin Beltrán MD Feb 23, 2019 08:07
[2019-02-23] MEDS: Heparin 5000 units/ml inj SUBQ SCH ×2 (08:23→20:41)
[2019-02-23] MEDS: Pantoprazole Inj IVP SCH ×2 (08:23→20:39)
[2019-02-23] MEDS: Ascorbic Acid 500mg tab GT SCH (08:23)
[2019-02-23] MEDS: levETIRAcetam 500mg/5ml Liquid GT SCH ×2 (08:24→20:39)
--- NOTE | 2019-02-23 08:40 | NUR ---
NURSE NOTES: Gtube placement done and no residual noted. All due medication given as ordered. Oral care and trach suction given.
[2019-02-23] MEDS: Amikacin for Inhalation 2ML INH SCH ×2 (09:20→22:18)
--- NOTE | 2019-02-23 09:24 | Infectious Diseases Prog Note ---
Assessment/Plan Assessment/Plan A 1. Providencia & Klebsiella pneumonia 2. respiratory failure 3. hypertension 4. CVA 5. dementia 6. sacral decubitus ulcer 7. rectal VRE colonization 8. Anemia 9. Proteus UTI 10. Acute renal failure 11. Leukocytosis P 1. Continue Amikacin inhaler X 3 days 2. Frequent suctioning 3. Remove PICC line before discharge Subjective ROS Limited/Unobtainable: Yes Constitutional: Denies: fever Allergies: Coded Allergies: CODEINE (Verified Allergy, Unknown, HIVES, 09/15/09) Objective Vital Signs Last 24 Hour Vital Signs Date Time Temp Pulse Resp B/P (MAP) Pulse Ox O2 Delivery O2 Flow Rate FiO2 02/23/19 09:16 95 31 99 T-Piece 8.0 30 91 24 96 02/23/19 08:23 77 129/57 02/23/19 07:10 98 T-Piece 8.0 30 02/23/19 07:09 80 22 99 T-Piece 8.0 30 76 28 98 02/23/19 07:00 76 24 135/71 (92) 98 02/23/19 06:00 79 26 125/53 (77) 99 02/23/19 05:00 77 28 107/41 (63) 97 02/23/19 04:00 81 02/23/19 04:00 8.0 30 02/23/19 04:00 98.1 76 27 104/42 (62) 98 02/23/19 03:00 81 24 109/45 (66) 98 02/23/19 02:56 77 25 100 T-Piece 8.0 30 75 24 100 02/23/19 02:00 80 20 146/80 (102) 97 02/23/19 01:03 100 T-Piece 8.0 30 02/23/19 01:00 79 22 110/38 (62) 97 02/23/19 00:00 T-piece 8.0 02/23/19 00:00 98.2 86 24 135/56 (82) 99 02/23/19 00:00 8.0 30 02/23/19 00:00 87 02/22/19 23:11 85 24 100 T-Piece 8.0 30 85 25 100 02/22/19 23:00 82 25 137/55 (82) 98 02/22/19 22:00 83 22 139/60 (86) 97 02/22/19 21:04 85 24 100 T-Piece 8.0 30 87 22 100 02/22/19 21:00 89 20 125/51 (75) 97 02/22/19 20:44 91 120/57 02/22/19 20:00 92 02/22/19 20:00 98.1 90 22 120/57 (78) 99 02/22/19 20:00 8.0 30 02/22/19 20:00 T-piece 8.0 02/22/19 19:00 92 20 126/57 (80) 95 02/22/19 18:47 98 T-Piece 10.0 35 02/22/19 18:46 104 21 100 T-Piece 8.0 30 103 23 98 02/22/19 18:00 90 25 131/63 (85) 95 02/22/19 17:00 96 21 152/78 (102) 96 02/22/19 17:00 1 21 152/78 (102) 96 02/22/19 16:00 98.9 100 28 139/90 (106) 97 02/22/19 16:00 111 02/22/19 16:00 8.0 40 02/22/19 16:00 113 22 139/99 (112) 96 02/22/19 16:00 T-piece 10.0 02/22/19 15:24 106 28 100 T-Piece 8.0 30 100 18 100 02/22/19 15:00 80 26 112/89 (97) 98 02/22/19 14:00 86 26 119/62 (81) 99 02/22/19 13:11 95 T-Piece 12.0 40 02/22/19 13:00 95 21 119/62 (81) 97 02/22/19 12:00 87 02/22/19 12:00 8.0 30 02/22/19 12:00 T-piece 10.0 02/22/19 12:00 95 21 120/50 (73) 97 02/22/19 11:00 98.7 84 26 124/45 (71) 98 77 02/22/19 10:28 78 20 98 T-Piece 8.0 30 76 22 96 02/22/19 10:00 77 25 114/43 (66) 99 77 Height (Feet): 5 Height (Inches): 5.00 Weight (Pounds): 180 General Appearance: no acute distress HEENT: status post trach Respiratory/Chest: lungs clear, other - on T bar Cardiovascular: normal rate, other - R arm PICC line Abdomen: soft, non tender, other - GT feeding Extremities: no edema Neurologic/Psychiatric: unresponsiveness, aphasia Laboratory Tests Test 02/23/19 04:00 White Blood Count 11.3 K/UL (4.8-10.8) H Red Blood Count 3.08 M/UL (4.20-5.40) L Hemoglobin 8.5 G/DL (12.0-16.0) L Hematocrit 26.2 % (37.0-47.0) L Mean Corpuscular Volume 85 FL (80-99) Mean Corpuscular Hemoglobin 27.4 PG (27.0-31.0) Mean Corpuscular Hemoglobin Concent 32.3 G/DL (32.0-36.0) Red Cell Distribution Width 16.5 % (11.6-14.8) H Platelet Count 276 K/UL (150-450) Mean Platelet Volume 4.9 FL (6.5-10.1) L Neutrophils (%) (Auto) 63.5 % (45.0-75.0) Lymphocytes (%) (Auto) 26.6 % (20.0-45.0) Monocytes (%) (Auto) 6.1 % (1.0-10.0) Eosinophils (%) (Auto) 3.1 % (0.0-3.0) H Basophils (%) (Auto) 0.7 % (0.0-2.0) Sodium Level 143 MMOL/L (136-145) Potassium Level 4.9 MMOL/L (3.5-5.1) Chloride Level 107 MMOL/L (98-107) Carbon Dioxide Level 34 MMOL/L (21-32) H Anion Gap 2 mmol/L (5-15) L Blood Urea Nitrogen 25 mg/dL (7-18) H Creatinine 1.2 MG/DL (0.55-1.30) Estimat Glomerular Filtration Rate mL/min (>60) Glucose Level 99 MG/DL (74-106) Calcium Level 8.4 MG/DL (8.5-10.1) L Phosphorus Level 3.3 MG/DL (2.5-4.9) Magnesium Level 2.4 MG/DL (1.8-2.4) Total Bilirubin 0.2 MG/DL (0.2-1.0) Aspartate Amino Transf (AST/SGOT) 18 U/L (15-37) Alanine Aminotransferase (ALT/SGPT) 16 U/L (12-78) Alkaline Phosphatase 132 U/L (46-116) H Pro-B-Type Natriuretic Peptide 469 pg/mL (0-125) H Total Protein 7.5 G/DL (6.4-8.2) Albumin 2.3 G/DL (3.4-5.0) L Globulin 5.2 g/dL Albumin/Globulin Ratio 0.4 (1.0-2.7) L Current Medications Medications (Trade) Dose Ordered Sig/Maicol Route PRN Reason Start Time Stop Time Status Last Admin Dose Admin Acetaminophen (Tylenol) 650 mg Q4H PRN GT Mild Pain/Temp > 100.5 02/18/19 05:44 03/05/19 05:43 Acetylcysteine (Mucomyst) 100 mg Q4HRT HHN 02/18/19 07:00 03/03/19 12:59 02/23/19 07:16 Albuterol/ Ipratropium (Albuterol/ Ipratropium) 3 ml Q4H PRN HHN Shortness of Breath 02/22/19 07:07 02/27/19 07:06 02/23/19 07:15 Amikacin Sulfate (Amikin) 500 mg Q12HR@10,22 INH 02/20/19 22:00 02/27/19 21:59 02/23/19 09:20 Ascorbic Acid (Vitamin C) 250 mg DAILY GT 02/18/19 09:00 02/24/19 08:59 02/23/19 08:23 Atropine Sulfate (Atropine Opth Adriana) 1 drop TID SL 02/18/19 09:00 03/12/19 09:29 02/23/19 08:33 Chlorhexidine Gluconate (Cesilia-Hex 2%) 1 applic DAILY@1999 TOPIC 02/18/19 20:00 03/12/19 19:59 02/22/19 20:02 Heparin Sodium (Porcine) (Heparin 5000 units/ml) 5,000 units EVERY 12 HOURS SUBQ 02/18/19 09:00 03/16/19 23:14 02/23/19 08:23 Hydralazine HCl (Apresoline) 25 mg Q4H PRN GT SBP above 160 02/18/19 05:46 03/09/19 05:45 Levetiracetam (Keppra) 750 mg Q12HR GT 02/18/19 09:00 03/16/19 23:29 02/23/19 08:24 Metoclopramide HCl (Reglan) 10 mg Q6H PRN IVP Nausea & Vomiting 02/18/19 05:46 03/09/19 05:45 Metoprolol Tartrate (Lopressor) 25 mg Q12HR GT 02/18/19 09:00 03/16/19 23:29 02/23/19 08:23 Pantoprazole (Protonix) 40 mg Q12HR IVP 02/18/19 09:00 03/16/19 23:29 02/23/19 08:23 Chauncey Liriano MD Feb 23, 2019 09:24
--- NOTE | 2019-02-23 09:29 | NUR ---
NURSE NOTES: Seen by Dr. Jm Liriano and assessed patient.
--- NOTE | 2019-02-23 10:12 | NUR ---
NURSE NOTES: Repositioned patient and Trach suction given.
--- NOTE | 2019-02-23 11:02 | NUR ---
DISCHARGE PLANNING FACED CLINCALS TO [facility] T: [phone] F: [phone] WAITING TO HEAR FROM MARIANNE OR LEE Addendum: 02/23/19 at 1301 by JODI TONY LVN LVN F/U CALL PLACED AND SPOKE WITH LEE AT [facility] SHE SAID SHE HAS NOT YET REVIEWED THE CLINICALS BUT SHE WILL.
--- NOTE | 2019-02-23 12:01 | NUR ---
NURSE NOTES: Provided oral care and repositioned patient.
--- NOTE | 2019-02-23 12:26 | NUR ---
NURSE NOTES: Seen by Dr. Vaughan and assessed. No new orders at this time.
--- NOTE | 2019-02-23 12:35 | Nephrology Progress Note ---
Assessment/Plan Problem List: (1) Acute renal failure (ARF) Assessment: Cr stable (2) Chronic respiratory failure (3) Anemia (4) Sepsis Assessment Acute renal failure Respiratory failure - Trach Low Mag- Low k , Low Na Anemia UTI / Sepsis Proteinuria / HypoAlbuminemia high Trigs Sz decubs bed bound DNR Plan K and Mag and Phos supplement as needed Hydrate Urine studies avoid Nephrotoxics mag K Phos supplements as needed monitor renal parameters Subjective ROS Limited/Unobtainable: Yes Objective Objective Last 24 Hour Vital Signs Date Time Temp Pulse Resp B/P (MAP) Pulse Ox O2 Delivery O2 Flow Rate FiO2 02/23/19 12:00 98.3 81 12 146/54 (84) 94 02/23/19 12:00 8.0 30 02/23/19 12:00 78 02/23/19 11:00 72 23 117/44 (68) 99 02/23/19 10:53 75 25 100 T-Piece 8.0 30 72 28 100 02/23/19 10:00 72 21 126/53 (77) 100 02/23/19 09:16 95 31 99 T-Piece 8.0 30 91 24 96 02/23/19 09:00 91 26 96/46 (63) 96 02/23/19 08:23 77 129/57 02/23/19 08:00 98.9 81 21 129/57 (81) 98 02/23/19 08:00 8.0 30 02/23/19 08:00 79 02/23/19 07:10 98 T-Piece 8.0 30 02/23/19 07:09 80 22 99 T-Piece 8.0 30 76 28 98 02/23/19 07:00 76 24 135/71 (92) 98 02/23/19 06:00 79 26 125/53 (77) 99 02/23/19 05:00 77 28 107/41 (63) 97 02/23/19 04:00 81 02/23/19 04:00 8.0 30 02/23/19 04:00 98.1 76 27 104/42 (62) 98 02/23/19 03:00 81 24 109/45 (66) 98 02/23/19 02:56 77 25 100 T-Piece 8.0 30 75 24 100 02/23/19 02:00 80 20 146/80 (102) 97 02/23/19 01:03 100 T-Piece 8.0 30 02/23/19 01:00 79 22 110/38 (62) 97 02/23/19 00:00 T-piece 8.0 02/23/19 00:00 98.2 86 24 135/56 (82) 99 02/23/19 00:00 8.0 30 02/23/19 00:00 87 02/22/19 23:11 85 24 100 T-Piece 8.0 30 85 25 100 02/22/19 23:00 82 25 137/55 (82) 98 02/22/19 22:00 83 22 139/60 (86) 97 02/22/19 21:04 85 24 100 T-Piece 8.0 30 87 22 100 02/22/19 21:00 89 20 125/51 (75) 97 02/22/19 20:44 91 120/57 02/22/19 20:00 92 02/22/19 20:00 98.1 90 22 120/57 (78) 99 02/22/19 20:00 8.0 30 02/22/19 20:00 T-piece 8.0 02/22/19 19:00 92 20 126/57 (80) 95 02/22/19 18:47 98 T-Piece 10.0 35 02/22/19 18:46 104 21 100 T-Piece 8.0 30 103 23 98 02/22/19 18:00 90 25 131/63 (85) 95 02/22/19 17:00 96 21 152/78 (102) 96 02/22/19 17:00 1 21 152/78 (102) 96 02/22/19 16:00 98.9 100 28 139/90 (106) 97 02/22/19 16:00 111 02/22/19 16:00 8.0 40 02/22/19 16:00 113 22 139/99 (112) 96 02/22/19 16:00 T-piece 10.0 02/22/19 15:24 106 28 100 T-Piece 8.0 30 100 18 100 02/22/19 15:00 80 26 112/89 (97) 98 02/22/19 14:00 86 26 119/62 (81) 99 02/22/19 13:11 95 T-Piece 12.0 40 02/22/19 13:00 95 21 119/62 (81) 97 Intake and Output 02/22/19 02/23/19 18:59 06:59 Intake Total 540 ml 420 ml Output Total 470 ml 581 ml Balance 70 ml -161 ml Free Water 120 ml Tube Feeding 420 ml 420 ml Output Urine Total 470 ml 580 ml Stool Total 1 ml # Bowel Movements 3 1 Laboratory Tests 02/23/19 04:00: White Blood Count 11.3H, Red Blood Count 3.08L, Hemoglobin 8.5L, Hematocrit 26.2L, Mean Corpuscular Volume 85, Mean Corpuscular Hemoglobin 27.4, Mean Corpuscular Hemoglobin Concent 32.3, Red Cell Distribution Width 16.5H, Platelet Count 276, Mean Platelet Volume 4.9L, Neutrophils (%) (Auto) 63.5, Lymphocytes (%) (Auto) 26.6, Monocytes (%) (Auto) 6.1, Eosinophils (%) (Auto) 3.1H, Basophils (%) (Auto) 0.7, Sodium Level 143, Potassium Level 4.9, Chloride Level 107, Carbon Dioxide Level 34H, Anion Gap 2L, Blood Urea Nitrogen 25H, Creatinine 1.2, Estimat Glomerular Filtration Rate , Glucose Level 99, Calcium Level 8.4L, Phosphorus Level 3.3, Magnesium Level 2.4, Total Bilirubin 0.2, Aspartate Amino Transf (AST/SGOT) 18, Alanine Aminotransferase (ALT/SGPT) 16, Alkaline Phosphatase 132H, Pro-B-Type Natriuretic Peptide 469H, Total Protein 7.5, Albumin 2.3L, Globulin 5.2, Albumin/Globulin Ratio 0.4L Height (Feet): 5 Height (Inches): 5.00 Weight (Pounds): 180 General Appearance: no apparent distress EENT: other - trach Respiratory/Chest: decreased breath sounds Abdomen: distended Eric Cortez MD Feb 23, 2019 12:35
--- NOTE | 2019-02-23 13:01 | NUR ---
CASE MANAGEMENT:REVIEW 02/23/19 SI: SEPSIS. KPC PNA SACRAL DECUB. CHRONIC RESP FAILURE 98.3 81 12 146/54 94% ON T-PIECE 8L/30% FIO2 WBC+11.3 H/H-8.5/26.2 BUN+25 IS: AMIKACIN INH Q12HRS KEPPRA GT Q12 LOPRESSOR GT IV PROTONIX Q12 HEPARIN SQ Q12 ATROPINE SL TID MUCOMYST HHN Q4HRS RTC IVF@50/HR : NOW IN ICU PLAN: REFERRED TO PENDING SALE TO [facility] ~ SPOKE WITH CLINICAL LABORATORY DIRECTOR, LEE
--- NOTE | 2019-02-23 14:20 | NUR ---
NURSE NOTES: Repositioned patient. VSS.
--- NOTE | 2019-02-23 14:48 | NUR ---
RD ASSESSMENT & RECOMMENDATIONS SEE CARE ACTIVITY FOR COMPLETE ASSESSMENT DAILY ESTIMATED NEEDS: Needs based on Pulmonary, wounds, bedbound/ 60kg adj 25-28 kcals/kg 6514-2818 total kcals 1.25-2 g protein/kg 75-120 g total protein 25-30 mL/kg 3040-5438 total fluid mLs NUTRITION DIAGNOSIS: * Swallowing difficulty R/T respiratory status as evidenced by pt on T-collar, now back the vent, PEG dep, TF changed to low rate at this time due to episodes of vomitting + residuals. * Increased kcal/prot needs R/T wound healing as evidenced by BL buttocks and sacral wound photos, refer to eval. CURRENT TF:Glucerna 1.5 @35ml ENTERAL NUTRITION RECOMMENDATIONS: Glucerna 1.5 @ 45ml/hr x 24 hrs to provide 1080ml, 1620kcal, 89g prot, 820ml free water - W/ continued good TF tolerance, rec to increase goal rate to 45ml/hr x 24 hrs to meet 100% est kcal/prot needs - HOB over 30 degrees - Water flush of 170ml q 6 hrs * W/ any further TF intolerances, rec TF change to elemental and carb controlled formula of Vital AF 1.2 for possible improved tolerance -> Rec VITAL AF 1.2 @ 55ml/hr x 24 hrs to provide 1320ml, 1584kcal, 99g prot, 1060ml free water ADDITIONAL RECOMMENDATIONS: 1) Re-calibrated bedscale wt for accurate CBW 2) Wound healing: Add Cristian 1pkt BID w/ good TF tolerance + MVI x1 daily 3) Monitor lytes, replete as needed 4) SSI prn + Accuchecks/ POC for improved BG control 5) Monitor TF tolerance: GJ conversion held at this time rec to increase TF as above w/ continued good TF tolerance
--- NOTE | 2019-02-23 16:20 | NUR ---
NURSE NOTES: Bed bath given and changed wound dressing. Oral care provided. Kept clean and comfortable. Will continue plan of care.
--- NOTE | 2019-02-23 17:40 | NUR ---
NURSE NOTES: Daughter is at the bedside. Update given for her.
--- NOTE | 2019-02-23 18:51 | Surgery Progress Note ---
Surgery Progress Note Subjective Additional Comments no acute events Objective Last 24 Hour Vital Signs Date Time Temp Pulse Resp B/P (MAP) Pulse Ox O2 Delivery O2 Flow Rate FiO2 02/23/19 18:00 78 24 116/51 (72) 97 02/23/19 17:00 99.3 85 23 141/54 (83) 99 02/23/19 16:00 8.0 30 02/23/19 16:00 80 18 111/47 (68) 47 02/23/19 16:00 80 02/23/19 15:11 76 27 99 T-Piece 8.0 30 77 23 97 02/23/19 15:00 76 17 116/54 (74) 96 02/23/19 14:00 77 24 118/46 (70) 97 02/23/19 13:08 98 T-Piece 8.0 30 02/23/19 13:00 77 16 97/48 (64) 96 02/23/19 12:00 98.3 81 12 146/54 (84) 94 02/23/19 12:00 8.0 30 02/23/19 12:00 78 02/23/19 11:00 72 23 117/44 (68) 99 02/23/19 10:53 75 25 100 T-Piece 8.0 30 72 28 100 02/23/19 10:00 72 21 126/53 (77) 100 02/23/19 09:16 95 31 99 T-Piece 8.0 30 91 24 96 02/23/19 09:00 91 26 96/46 (63) 96 02/23/19 08:23 77 129/57 02/23/19 08:00 98.9 81 21 129/57 (81) 98 02/23/19 08:00 8.0 30 02/23/19 08:00 79 02/23/19 07:10 98 T-Piece 8.0 30 02/23/19 07:09 80 22 99 T-Piece 8.0 30 76 28 98 02/23/19 07:00 76 24 135/71 (92) 98 02/23/19 06:00 79 26 125/53 (77) 99 02/23/19 05:00 77 28 107/41 (63) 97 02/23/19 04:00 81 02/23/19 04:00 8.0 30 02/23/19 04:00 98.1 76 27 104/42 (62) 98 02/23/19 03:00 81 24 109/45 (66) 98 02/23/19 02:56 77 25 100 T-Piece 8.0 30 75 24 100 02/23/19 02:00 80 20 146/80 (102) 97 02/23/19 01:03 100 T-Piece 8.0 30 02/23/19 01:00 79 22 110/38 (62) 97 02/23/19 00:00 T-piece 8.0 02/23/19 00:00 98.2 86 24 135/56 (82) 99 02/23/19 00:00 8.0 30 02/23/19 00:00 87 02/22/19 23:11 85 24 100 T-Piece 8.0 30 85 25 100 02/22/19 23:00 82 25 137/55 (82) 98 02/22/19 22:00 83 22 139/60 (86) 97 02/22/19 21:04 85 24 100 T-Piece 8.0 30 87 22 100 02/22/19 21:00 89 20 125/51 (75) 97 02/22/19 20:44 91 120/57 02/22/19 20:00 92 02/22/19 20:00 98.1 90 22 120/57 (78) 99 02/22/19 20:00 8.0 30 02/22/19 20:00 T-piece 8.0 02/22/19 19:00 92 20 126/57 (80) 95 I&O Intake and Output 02/22/19 02/23/19 19:00 07:00 Intake Total 540 ml 420 ml Output Total 470 ml 601 ml Balance 70 ml -181 ml Free Water 120 ml Tube Feeding 420 ml 420 ml Output Urine Total 470 ml 600 ml Stool Total 1 ml # Bowel Movements 3 1 Dressing: other Wound: other Drains: other Cardiovascular: RSR Respiratory: decreased breath sounds Abdomen: soft, present bowel sounds Extremities: no cyanosis Laboratory Tests Test 02/23/19 04:00 White Blood Count 11.3 K/UL (4.8-10.8) H Red Blood Count 3.08 M/UL (4.20-5.40) L Hemoglobin 8.5 G/DL (12.0-16.0) L Hematocrit 26.2 % (37.0-47.0) L Mean Corpuscular Volume 85 FL (80-99) Mean Corpuscular Hemoglobin 27.4 PG (27.0-31.0) Mean Corpuscular Hemoglobin Concent 32.3 G/DL (32.0-36.0) Red Cell Distribution Width 16.5 % (11.6-14.8) H Platelet Count 276 K/UL (150-450) Mean Platelet Volume 4.9 FL (6.5-10.1) L Neutrophils (%) (Auto) 63.5 % (45.0-75.0) Lymphocytes (%) (Auto) 26.6 % (20.0-45.0) Monocytes (%) (Auto) 6.1 % (1.0-10.0) Eosinophils (%) (Auto) 3.1 % (0.0-3.0) H Basophils (%) (Auto) 0.7 % (0.0-2.0) Sodium Level 143 MMOL/L (136-145) Potassium Level 4.9 MMOL/L (3.5-5.1) Chloride Level 107 MMOL/L (98-107) Carbon Dioxide Level 34 MMOL/L (21-32) H Anion Gap 2 mmol/L (5-15) L Blood Urea Nitrogen 25 mg/dL (7-18) H Creatinine 1.2 MG/DL (0.55-1.30) Estimat Glomerular Filtration Rate mL/min (>60) Glucose Level 99 MG/DL (74-106) Calcium Level 8.4 MG/DL (8.5-10.1) L Phosphorus Level 3.3 MG/DL (2.5-4.9) Magnesium Level 2.4 MG/DL (1.8-2.4) Total Bilirubin 0.2 MG/DL (0.2-1.0) Aspartate Amino Transf (AST/SGOT) 18 U/L (15-37) Alanine Aminotransferase (ALT/SGPT) 16 U/L (12-78) Alkaline Phosphatase 132 U/L (46-116) H Pro-B-Type Natriuretic Peptide 469 pg/mL (0-125) H Total Protein 7.5 G/DL (6.4-8.2) Albumin 2.3 G/DL (3.4-5.0) L Globulin 5.2 g/dL Albumin/Globulin Ratio 0.4 (1.0-2.7) L Plan Problems: (1) Sacral decubitus ulcer Assessment & Plan: This is a 83-year-old female with multiple medical committees that is currently admitted for medical care and management and identified to have multiple wounds requiring care. On admission patient noted to have a resolved sacral decubitus ulcer. Has had prior care and is well-healed at this time. Will ensure it does not open up again. Patient has a right ischial decubitus ulcer that is resolved. Scar intact and well formed. Will monitor to ensure it does not open up again. Patient has a left ischial decubitus ulcer that can be identified to be stage IV with palpable bone that has been resolving as noted by the periwound tissue and scar but open area approximately 1 cm x 1.5 cm few millimeters deep to bone identified. Unsure if this is been to be completely healed prior and has since opened or if has been healing at this level. No foul odor no drainage was unsure local wound care until healed Bilateral heels soft without signs of injury Resolving pressure injury L ischium(L)1.8cm x (W)1cm.Scattered biofilm at base of wound. Edges flat and adherent with surrounding hyperpigmentation. No odor or exudate noted. Sacrum is pale pink with surrounding hyperpigmentation. Hyperpigmentation R ischium with small sheared area centrally.No areas of erythema or exudate noted. Both heels are soft but blanchable. Skin Assessed under collar of trach and no evidence of skin breakdown noted. All wound Tx. are effective and continued as ordered. Pt ahs an APM/Belén mattress overlay and is being repositioned per protocols and per tolerance.No new skin concerns noted. Treatment plan: Please apply skin protectant and optifoam to sacral area. Change every 3 days Please apply skin protectant and optifoam to right ischial area. Change every 3 days Please apply Thera honey infused gauze to small opening in the left ischial wound bed followed by skin protectant in the periwound and up to foam. Change daily as needed saturation Apply Xeroform and dressing over left hand blister. Offload pressure from heels with pillow Air soft mattress Turn every 2 hours Nutritional optimization We will monitor follow with recommendations (2) Sepsis Assessment & Plan: IV abx as per ID trend labs improving wounds unlikely etiology likely respiratory imaging noted and okay abnormal lft's stable PICC on Abx in ICU for desaturation CXR with consolidation Evidence of left lower lobe pneumonia, also previously demonstrated Gastrostomy in good position Mild diastasis of the rectus abdominis musculature again demonstrated Retrosacral decubitus changes, better depicted on prior exam which included the pelvis Small hiatal hernia with evidence of trace gastroesophageal reflux (3) Feeding by G-tube Assessment & Plan: DAILY ESTIMATED NEEDS: Needs based on Pulmonary, wounds, bedbound/ 60kg adj 25-28 kcals/kg 1313-3605 total kcals 1.25-2 g protein/kg 75-120 g total protein 25-30 mL/kg 5359-8732 total fluid mLs NUTRITION DIAGNOSIS: * Swallowing difficulty R/T respiratory status as evidenced by pt on T-collar, now back the vent, PEG dep, TF changed to low rate at this time due to episodes of vomiting + residuals. * Increased kcal/prot needs R/T wound healing as evidenced by BL buttocks and sacral wound photos, refer to eval. (CURRENT TF:Glucerna 1.5 @35ml) ENTERAL NUTRITION RECOMMENDATIONS: VITAL AF 1.2 @ 55ml/hr x 24 hrs to provide 1320ml, 1584kcal, 99g prot, 1060ml free water - Once medically appropriate to resume TF, rec to initiate elemental and carb control formula of Vital 1.2 for possible improved tolerance - Initiate VITAL 1.2 @ 25ml/hr x 6hrs, advance 10ml q 4-6 hrs as tolerated to goal rate - Flush per MD/ HOB over 30 degrees ADDITIONAL RECOMMENDATIONS: 1) Re-calibrated bedscale wt for accurate CBW 2) Wound healing: Add Cristian 1pkt BID w/ improved Tf tolerace + MVI x1 daily 3) Monitor lytes, replete as needed (low Mg, K) 4) Monitor NPO status, ability to resume TF. -> held on and off due to vomiting since 02/02 5) SSI prn resume tube feeds (4) Chronic vegetative state Assessment & Plan: incontinence of urine and stool. can soil dressings. nurses doing great job with monitoring and changing prn (5) Leukocytosis Watler [place] Feb 23, 2019 18:51
--- NOTE | 2019-02-23 19:12 | NUR ---
HAND-OFF: Report given to JEANNINE Britt. Endorsed plan of care.
--- NOTE | 2019-02-23 19:30 | NUR ---
NURSE NOTES: Received report from JEANNINE Howard. Pt is resting on the bed and obtunded and able to response to pain stimuli. Pt has T-piece with cool aerosol with FIO2 30%, O2 8L and SaO2 100% noted. Given oral and tracheal suction and provided oral care. Noted large amount of whitish secretion suctioned. monitor car operator with SR. Pt has right upper arm PICC and dressing is cleaned and dry and on sign of infiltration noted. On G-tube feeding Glucerna 1.5 @ 35ml/hour and no residual noted. Keep HOB. Pt has purewicks and in placed. Dressing is clean and dry on wound area. On P200 mattress for wound management. Placed fall and seizure precaution. Will continue to care plan.
[2019-02-23] MEDS: Dyna-Hex 2% Top Sol 2oz TOPIC SCH (20:09)
--- NOTE | 2019-02-23 20:49 | Pulmonology Progress Note ---
Assessment/Plan Assessment/Plan Impression: Sepsis syndrome Pneumonia VDRF, Trach, G tube, Hypertension, Cardiac disease, Dementia, Previous CVA, Seizure disorder, Respiratory failure with hypoxia Anemia Sacral ulcer renal cyst pulmonary congestion Plan respiratory care to continue as is atropine neb therapy SNF meds as is off vent as able and has been off for several day Oxygen as needed Monitor labs daily changes noted and reviewed feeds as tolerated monitor albumin levels and provide protein and nutrition elevate head aspiration precautions Patient is a DNR. No CPR. ICU care reviewed medications/laboratory data/nursing notes/ICU care reviewed in detail note reviewed and edited care discussed with RN and RT ICU time spent 38 minutes Subjective ROS Limited/Unobtainable: Yes Allergies: Coded Allergies: CODEINE (Verified Allergy, Unknown, HIVES, 09/15/09) Subjective respiratory care noted congestion- improved with atropine ICU care reviewed supportive care noted and reviewed RT care reviewed overnight care noted findings reviewed and discussed in detail with nursing and RT seen earlier this am Objective Last 24 Hour Vital Signs Date Time Temp Pulse Resp B/P (MAP) Pulse Ox O2 Delivery O2 Flow Rate FiO2 02/23/19 20:39 76 137/54 02/23/19 20:00 8.0 30 02/23/19 19:21 98 T-Piece 8.0 30 02/23/19 19:16 83 21 100 T-Piece 8.0 30 81 22 98 02/23/19 19:00 80 28 115/51 (72) 96 02/23/19 18:00 78 24 116/51 (72) 97 02/23/19 17:00 99.3 85 23 141/54 (83) 99 02/23/19 16:00 8.0 30 02/23/19 16:00 80 18 111/47 (68) 47 02/23/19 16:00 80 02/23/19 15:11 76 27 99 T-Piece 8.0 30 77 23 97 02/23/19 15:00 76 17 116/54 (74) 96 02/23/19 14:00 77 24 118/46 (70) 97 02/23/19 13:08 98 T-Piece 8.0 30 02/23/19 13:00 77 16 97/48 (64) 96 02/23/19 12:00 98.3 81 12 146/54 (84) 94 02/23/19 12:00 8.0 30 02/23/19 12:00 78 02/23/19 11:00 72 23 117/44 (68) 99 02/23/19 10:53 75 25 100 T-Piece 8.0 30 72 28 100 02/23/19 10:00 72 21 126/53 (77) 100 02/23/19 09:16 95 31 99 T-Piece 8.0 30 91 24 96 02/23/19 09:00 91 26 96/46 (63) 96 02/23/19 08:23 77 129/57 02/23/19 08:00 98.9 81 21 129/57 (81) 98 02/23/19 08:00 8.0 30 02/23/19 08:00 79 02/23/19 07:10 98 T-Piece 8.0 30 02/23/19 07:09 80 22 99 T-Piece 8.0 30 76 28 98 02/23/19 07:00 76 24 135/71 (92) 98 02/23/19 06:00 79 26 125/53 (77) 99 02/23/19 05:00 77 28 107/41 (63) 97 02/23/19 04:00 81 02/23/19 04:00 8.0 30 02/23/19 04:00 98.1 76 27 104/42 (62) 98 02/23/19 03:00 81 24 109/45 (66) 98 02/23/19 02:56 77 25 100 T-Piece 8.0 30 75 24 100 02/23/19 02:00 80 20 146/80 (102) 97 02/23/19 01:03 100 T-Piece 8.0 30 02/23/19 01:00 79 22 110/38 (62) 97 02/23/19 00:00 T-piece 8.0 02/23/19 00:00 98.2 86 24 135/56 (82) 99 02/23/19 00:00 8.0 30 02/23/19 00:00 87 02/22/19 23:11 85 24 100 T-Piece 8.0 30 85 25 100 02/22/19 23:00 82 25 137/55 (82) 98 02/22/19 22:00 83 22 139/60 (86) 97 02/22/19 21:04 85 24 100 T-Piece 8.0 30 87 22 100 02/22/19 21:00 89 20 125/51 (75) 97 Intake and Output 02/22/19 02/23/19 19:00 07:00 Intake Total 540 ml 420 ml Output Total 470 ml 601 ml Balance 70 ml -181 ml Free Water 120 ml Tube Feeding 420 ml 420 ml Output Urine Total 470 ml 600 ml Stool Total 1 ml # Bowel Movements 3 1 Objective WDWN NAD contracted off vent reduced breath sounds bilaterally with some rhonchi overall; no wheeze [id number] without MRG NABS nontender no HSM no CC minimal nonfocal nonverbal trach and gt reviewed and edited Laboratory Tests 02/23/19 04:00: White Blood Count 11.3H, Red Blood Count 3.08L, Hemoglobin 8.5L, Hematocrit 26.2L, Mean Corpuscular Volume 85, Mean Corpuscular Hemoglobin 27.4, Mean Corpuscular Hemoglobin Concent 32.3, Red Cell Distribution Width 16.5H, Platelet Count 276, Mean Platelet Volume 4.9L, Neutrophils (%) (Auto) 63.5, Lymphocytes (%) (Auto) 26.6, Monocytes (%) (Auto) 6.1, Eosinophils (%) (Auto) 3.1H, Basophils (%) (Auto) 0.7, Sodium Level 143, Potassium Level 4.9, Chloride Level 107, Carbon Dioxide Level 34H, Anion Gap 2L, Blood Urea Nitrogen 25H, Creatinine 1.2, Estimat Glomerular Filtration Rate , Glucose Level 99, Calcium Level 8.4L, Phosphorus Level 3.3, Magnesium Level 2.4, Total Bilirubin 0.2, Aspartate Amino Transf (AST/SGOT) 18, Alanine Aminotransferase (ALT/SGPT) 16, Alkaline Phosphatase 132H, Pro-B-Type Natriuretic Peptide 469H, Total Protein 7.5, Albumin 2.3L, Globulin 5.2, Albumin/Globulin Ratio 0.4L Current Medications Medications (Trade) Dose Ordered Sig/Maiocl Route PRN Reason Start Time Stop Time Status Last Admin Dose Admin Acetaminophen (Tylenol) 650 mg Q4H PRN GT Mild Pain/Temp > 100.5 02/18/19 05:44 03/05/19 05:43 Acetylcysteine (Mucomyst) 100 mg Q4HRT HHN 02/18/19 07:00 03/03/19 12:59 11/25/19 19:19 Albuterol/ Ipratropium (Albuterol/ Ipratropium) 3 ml Q4H PRN HHN Shortness of Breath 02/22/19 07:07 02/27/19 07:06 02/23/19 19:16 Amikacin Sulfate (Amikin) 500 mg Q12HR@10,22 INH 02/20/19 22:00 02/27/19 21:59 02/23/19 09:20 Ascorbic Acid (Vitamin C) 250 mg DAILY GT 02/18/19 09:00 02/24/19 08:59 02/23/19 08:23 Atropine Sulfate (Atropine Opth Adriana) 1 drop TID SL 02/18/19 09:00 03/12/19 09:29 02/23/19 17:24 Chlorhexidine Gluconate (Cesilia-Hex 2%) 1 applic DAILY@2000 TOPIC 02/18/19 20:00 03/12/19 19:59 02/23/19 20:09 Heparin Sodium (Porcine) (Heparin 5000 units/ml) 5,000 units EVERY 12 HOURS SUBQ 02/18/19 09:00 03/16/19 23:14 02/23/19 20:41 Hydralazine HCl (Apresoline) 25 mg Q4H PRN GT SBP above 160 02/18/19 05:46 03/09/19 05:45 Levetiracetam (Keppra) 750 mg Q12HR GT 02/18/19 09:00 03/16/19 23:29 02/23/19 20:39 Metoclopramide HCl (Reglan) 10 mg Q6H PRN IVP Nausea & Vomiting 02/18/19 05:46 03/09/19 05:45 Metoprolol Tartrate (Lopressor) 25 mg Q12HR GT 02/18/19 09:00 03/16/19 23:29 02/23/19 20:39 Pantoprazole (Protonix) 40 mg Q12HR IVP 02/18/19 09:00 03/16/19 23:29 02/23/19 20:39 Amaury Chan MD Feb 23, 2019 20:49
--- NOTE | 2019-02-23 21:00 | NUR ---
NURSE NOTES: Noted small amount soft BM. Cleaned Pt and applied lotion and cream. Given tracheal and oral suction. Will continue to care plan.
--- NOTE | 2019-02-23 22:00 | NUR ---
NURSE NOTES: Pt is sleeping on the bed and provide oral care and suction was done. Repositioned. Will continue to care plan.
--- NOTE | 2019-02-23 22:31 | General Progress Note ---
Assessment/Plan Status: stable, progressing Assessment/Plan: Assessment - N/V, periodic - suspect due to gastroparesis - will hold off on G to J conversion per daughter request - Elevated Alk phos / LFT - CT negative - abd U/S negative - check hepatitis serologies - negative - Anemia with OB (-) stools - Resp failure, s/p Trach - dysphagia, s/p PEG - OBS - poor Px Recommendations - laxative PRN - continue TF - aspiration precautions - elevate HOB - PPI - Elevate HOB Subjective Allergies: Coded Allergies: CODEINE (Verified Allergy, Unknown, HIVES, 09/15/09) Subjective Seen earlier today in ICU d/w RN tolerating TF no vomiting on T-piece for breathing Objective Last 24 Hour Vital Signs Date Time Temp Pulse Resp B/P (MAP) Pulse Ox O2 Delivery O2 Flow Rate FiO2 02/23/19 22:18 72 23 100 T-Piece 8.0 30 69 25 98 02/23/19 21:00 84 22 127/50 (75) 99 02/23/19 20:39 76 137/54 02/23/19 20:00 8.0 30 02/23/19 20:00 80 02/23/19 20:00 80 23 137/54 (81) 97 02/23/19 19:21 98 T-Piece 8.0 30 02/23/19 19:16 83 21 100 T-Piece 8.0 30 81 22 98 02/23/19 19:00 80 28 115/51 (72) 96 02/23/19 18:00 78 24 116/51 (72) 97 02/23/19 17:00 99.3 85 23 141/54 (83) 99 02/23/19 16:00 8.0 30 02/23/19 16:00 80 18 111/47 (68) 47 02/23/19 16:00 80 02/23/19 15:11 76 27 99 T-Piece 8.0 30 77 23 97 02/23/19 15:00 76 17 116/54 (74) 96 02/23/19 14:00 77 24 118/46 (70) 97 02/23/19 13:08 98 T-Piece 8.0 30 02/23/19 13:00 77 16 97/48 (64) 96 02/23/19 12:00 98.3 81 12 146/54 (84) 94 02/23/19 12:00 8.0 30 02/23/19 12:00 78 02/23/19 11:00 72 23 117/44 (68) 99 02/23/19 10:53 75 25 100 T-Piece 8.0 30 72 28 100 02/23/19 10:00 72 21 126/53 (77) 100 02/23/19 09:16 95 31 99 T-Piece 8.0 30 91 24 96 02/23/19 09:00 91 26 96/46 (63) 96 02/23/19 08:23 77 129/57 02/23/19 08:00 98.9 81 21 129/57 (81) 98 02/23/19 08:00 8.0 30 02/23/19 08:00 79 02/23/19 07:10 98 T-Piece 8.0 30 02/23/19 07:09 80 22 99 T-Piece 8.0 30 76 28 98 02/23/19 07:00 76 24 135/71 (92) 98 02/23/19 06:00 79 26 125/53 (77) 99 02/23/19 05:00 77 28 107/41 (63) 97 02/23/19 04:00 81 02/23/19 04:00 8.0 30 02/23/19 04:00 98.1 76 27 104/42 (62) 98 02/23/19 03:00 81 24 109/45 (66) 98 02/23/19 02:56 77 25 100 T-Piece 8.0 30 75 24 100 02/23/19 02:00 80 20 146/80 (102) 97 02/23/19 01:03 100 T-Piece 8.0 30 02/23/19 01:00 79 22 110/38 (62) 97 02/23/19 00:00 T-piece 8.0 02/23/19 00:00 98.2 86 24 135/56 (82) 99 02/23/19 00:00 8.0 30 02/23/19 00:00 87 02/22/19 23:11 85 24 100 T-Piece 8.0 30 85 25 100 02/22/19 23:00 82 25 137/55 (82) 98 Intake and Output 02/22/19 02/23/19 19:00 07:00 Intake Total 540 ml 420 ml Output Total 470 ml 601 ml Balance 70 ml -181 ml Free Water 120 ml Tube Feeding 420 ml 420 ml Output Urine Total 470 ml 600 ml Stool Total 1 ml # Bowel Movements 3 1 Laboratory Tests 02/23/19 04:00: White Blood Count 11.3H, Red Blood Count 3.08L, Hemoglobin 8.5L, Hematocrit 26.2L, Mean Corpuscular Volume 85, Mean Corpuscular Hemoglobin 27.4, Mean Corpuscular Hemoglobin Concent 32.3, Red Cell Distribution Width 16.5H, Platelet Count 276, Mean Platelet Volume 4.9L, Neutrophils (%) (Auto) 63.5, Lymphocytes (%) (Auto) 26.6, Monocytes (%) (Auto) 6.1, Eosinophils (%) (Auto) 3.1H, Basophils (%) (Auto) 0.7, Sodium Level 143, Potassium Level 4.9, Chloride Level 107, Carbon Dioxide Level 34H, Anion Gap 2L, Blood Urea Nitrogen 25H, Creatinine 1.2, Estimat Glomerular Filtration Rate , Glucose Level 99, Calcium Level 8.4L, Phosphorus Level 3.3, Magnesium Level 2.4, Total Bilirubin 0.2, Aspartate Amino Transf (AST/SGOT) 18, Alanine Aminotransferase (ALT/SGPT) 16, Alkaline Phosphatase 132H, Pro-B-Type Natriuretic Peptide 469H, Total Protein 7.5, Albumin 2.3L, Globulin 5.2, Albumin/Globulin Ratio 0.4L Height (Feet): 5 Height (Inches): 5.00 Weight (Pounds): 180 Objective Debilitated AA woman NCAT (+) trach coarse ronchi RR obese abd, (+) GT no edema Celio Vaughan MD Feb 23, 2019 22:31
[2019-02-24] VITALS (24 sets, daily range): BP systolic 105–157; BP diastolic 45–85
--- NOTE | 2019-02-24 | NUR ---
NURSE NOTES: Pt is sleeping on the bed and family;daughter stays at bedside. On T- piece and SaO2 30% and SaO2 99% noted. Suction and oral care was done. Family refused reposition at this time. Will continue to care plan.
--- NOTE | 2019-02-24 04:00 | NUR ---
NURSE NOTES: Morning care was done. Noted large amount of soft BM. Cleaned Pt and applied lotion and cream. Changed wound dressing. Given oral care. Changed position. V/S stable. Will continue to monitor any change of condition.
--- NOTE | 2019-02-24 06:00 | NUR ---
NURSE NOTES: Pt is sleeping on the bed and no sign of acute distress noted. Dr. Beltrán visited and assessed Pt. Still noted large amount of secretion. Given suction. Repositioned. Will continue to monitor any change of condition.
[2019-02-24 06:52] LABS: BASOPHILS % (AUTO) 0.9 % (0.0-2.0); EOSINOPHILS % (AUTO) 4.7 % (0.0-3.0); HEMATOCRIT 27.7 % (37.0-47.0); HEMOGLOBIN 8.7 G/DL (12.0-16.0); LYMPHOCYTES % (AUTO) 34.1 % (20.0-45.0); MEAN CORPUSCULAR VOLUME 85 FL (80-99); MONOCYTES % (AUTO) 6.7 % (1.0-10.0); NEUTROPHILS % (AUTO) 53.6 % (45.0-75.0); PLATELET COUNT 244 K/UL (150-450); RED BLOOD COUNT 3.25 M/UL (4.20-5.40); RED CELL DISTRIBUTION WIDTH 17.1 % (11.6-14.8); WHITE BLOOD COUNT 7.7 K/UL (4.8-10.8)
[2019-02-24 06:58] LABS: ALANINE AMINOTRANSFERASE 18 U/L (12-78); ALBUMIN 2.4 G/DL (3.4-5.0); ALBUMIN/GLOBULIN RATIO 0.4 (1.0-2.7); ALKALINE PHOSPHATASE 126 U/L (46-116); ANION GAP 5 mmol/L (5-15); ASPARTATE AMINO TRANSFERASE 18 U/L (15-37); BILIRUBIN,TOTAL 0.2 MG/DL (0.2-1.0); BLOOD UREA NITROGEN 26 mg/dL (7-18); CALCIUM 8.7 MG/DL (8.5-10.1); CARBON DIOXIDE 31 MMOL/L (21-32); CHLORIDE 107 MMOL/L (98-107); CREATININE 1.1 MG/DL (0.55-1.30); POTASSIUM 4.6 MMOL/L (3.5-5.1); SODIUM 143 MMOL/L (136-145)
--- NOTE | 2019-02-24 07:11 | NUR ---
NURSE NOTES: Received report from JEANNINE Britt. Patient is obtunded. ST on the monitor. Anita 6 XLT with FiO2 30%. O2 Sat 99% on the monitor. Gtube intact, clean and running with Glucerna 1.5 @35ml/hr. On purewick and P200 mattress for wound management. Right upper arm PICC intact and clean with TKO. No acute distress/SOB noted. Trach suction given. Kept dry, clean, comfortable and HOB>30. Will continue plan of care.
--- NOTE | 2019-02-24 07:16 | NUR ---
HAND-OFF: Report given to JEANNINE Howard. Pt is sleeping on the bed. On T-piece and tolerated with current O2 setting. Still noted large amount secretion. Given tracheal and oral suction.
--- NOTE | 2019-02-24 08:31 | General Progress Note ---
Assessment/Plan Problem List: (1) Seizure ICD Codes: R56.9 - Unspecified convulsions SNOMED: 93876893 (2) Anemia ICD Codes: D64.9 - Anemia, unspecified SNOMED: 822887032 Qualifiers: Qualified Codes: D64.9 - Anemia, unspecified (3) Sepsis ICD Codes: A41.9 - Sepsis, unspecified organism SNOMED: 48861276, 262099060 Qualifiers: Qualified Codes: A41.9 - Sepsis, unspecified organism (4) Respiratory failure with hypoxia ICD Codes: J96.91 - Respiratory failure, unspecified with hypoxia SNOMED: 04154755106471428 Qualifiers: Qualified Codes: J96.21 - Acute and chronic respiratory failure with hypoxia (5) HCAP (healthcare-associated pneumonia) ICD Codes: J18.9 - Pneumonia, unspecified organism SNOMED: 087804900, 328954809 (6) Sacral decubitus ulcer ICD Codes: L89.159 - Pressure ulcer of sacral region, unspecified stage SNOMED: 776768512 (7) HTN (hypertension) ICD Codes: I10 - Essential (primary) hypertension SNOMED: 19648716 (8) Chronic vegetative state ICD Codes: R40.3 - Persistent vegetative state SNOMED: 06156411 (9) Chronic respiratory failure ICD Codes: J96.10 - Chronic respiratory failure, unspecified whether with hypoxia or hypercapnia SNOMED: 40260263 (10) Limited mobility ICD Codes: Z74.09 - Other reduced mobility SNOMED: 3445219 Status: stable, progressing Assessment/Plan: vent prn as needed resp rx suctioning as needed gt feeds monitor for vomiting bowel regime monitor residuals sx rx repeat sputum culture transfuse prn dc planning Subjective ROS Limited/Unobtainable: Yes Constitutional: Reports: malaise, weakness HEENT: Reports: no symptoms Cardiovascular: Reports: no symptoms Respiratory: Reports: cough, sputum Gastrointestinal/Abdominal: Reports: difficulty swallowing Genitourinary: Reports: no symptoms Neurologic/Psychiatric: Reports: pre-existing deficit, seizure Endocrine: Reports: no symptoms Hematologic/Lymphatic: Reports: no symptoms Allergies: Coded Allergies: CODEINE (Verified Allergy, Unknown, HIVES, 09/15/09) All Systems: reviewed and negative except above Subjective no events. remains on the vent. intermittently congested. no fever or chills. D/ w RT. no new concerns Objective Last 24 Hour Vital Signs Date Time Temp Pulse Resp B/P (MAP) Pulse Ox O2 Delivery O2 Flow Rate FiO2 02/24/19 07:40 73 23 100 T-Piece 8.0 30 02/24/19 07:40 100 T-Piece 8.0 30 02/24/19 07:00 74 23 149/64 (92) 99 02/24/19 06:00 73 22 143/58 (86) 99 02/24/19 05:00 73 23 141/59 (86) 99 02/24/19 04:00 8.0 30 02/24/19 04:00 98.3 76 21 128/51 (76) 99 02/24/19 04:00 69 02/24/19 04:00 T-piece 8.0 02/24/19 03:12 76 20 100 T-Piece 8.0 30 77 22 97 02/24/19 03:11 97 T-Piece 8.0 30 02/24/19 03:00 69 23 111/45 (67) 98 02/24/19 02:00 66 23 117/50 (72) 98 02/24/19 01:00 68 24 137/81 (99) 97 02/24/19 00:00 70 02/24/19 00:00 98.7 71 21 124/75 (91) 99 02/24/19 00:00 T-piece 8.0 02/24/19 00:00 8.0 30 02/23/19 23:37 70 23 100 T-Piece 8.0 30 69 22 100 02/23/19 23:00 69 24 129/45 (73) 98 02/23/19 22:18 72 23 100 T-Piece 8.0 30 69 25 98 02/23/19 22:00 70 26 127/46 (73) 99 02/23/19 21:00 84 22 127/50 (75) 99 02/23/19 20:39 76 137/54 02/23/19 20:00 T-piece 8.0 02/23/19 20:00 8.0 30 02/23/19 20:00 80 02/23/19 20:00 99.0 80 23 137/54 (81) 97 02/23/19 19:21 98 T-Piece 8.0 30 02/23/19 19:16 83 21 100 T-Piece 8.0 30 81 22 98 02/23/19 19:00 80 28 115/51 (72) 96 02/23/19 18:00 78 24 116/51 (72) 97 02/23/19 17:00 99.3 85 23 141/54 (83) 99 02/23/19 16:00 T-piece 8.0 02/23/19 16:00 8.0 30 02/23/19 16:00 80 18 111/47 (68) 47 02/23/19 16:00 80 02/23/19 15:11 76 27 99 T-Piece 8.0 30 77 23 97 02/23/19 15:00 76 17 116/54 (74) 96 02/23/19 14:00 77 24 118/46 (70) 97 02/23/19 13:08 98 T-Piece 8.0 30 02/23/19 13:00 77 16 97/48 (64) 96 02/23/19 12:00 98.3 81 12 146/54 (84) 94 02/23/19 12:00 T-piece 8.0 02/23/19 12:00 8.0 30 02/23/19 12:00 78 02/23/19 11:00 72 23 117/44 (68) 99 02/23/19 10:53 75 25 100 T-Piece 8.0 30 72 28 100 02/23/19 10:00 72 21 126/53 (77) 100 02/23/19 09:16 95 31 99 T-Piece 8.0 30 91 24 96 02/23/19 09:00 91 26 96/46 (63) 96 Intake and Output 02/23/19 02/24/19 19:00 07:00 Intake Total 570 ml 420 ml Output Total 600 ml 600 ml Balance -30 ml -180 ml Free Water 150 ml Tube Feeding 420 ml 420 ml Output Urine Total 600 ml 600 ml # Bowel Movements 4 Laboratory Tests 02/24/19 06:20: White Blood Count 7.7, Red Blood Count 3.25L, Hemoglobin 8.7L, Hematocrit 27.7L , Mean Corpuscular Volume 85, Mean Corpuscular Hemoglobin 26.8L, Mean Corpuscular Hemoglobin Concent 31.4L, Red Cell Distribution Width 17.1H, Platelet Count 244, Mean Platelet Volume 5.0L, Neutrophils (%) (Auto) 53.6, Lymphocytes (%) (Auto) 34.1, Monocytes (%) (Auto) 6.7, Eosinophils (%) (Auto) 4.7H, Basophils (%) (Auto) 0.9, Sodium Level 143, Potassium Level 4.6, Chloride Level 107, Carbon Dioxide Level 31, Anion Gap 5, Blood Urea Nitrogen 26H, Creatinine 1.1, Estimat Glomerular Filtration Rate , Glucose Level 98, Calcium Level 8.7, Total Bilirubin 0.2, Aspartate Amino Transf (AST/SGOT) 18, Alanine Aminotransferase (ALT/SGPT) 18, Alkaline Phosphatase 126H, Total Protein 8.0, Albumin 2.4L, Globulin 5.6, Albumin/Globulin Ratio 0.4L Height (Feet): 5 Height (Inches): 5.00 Weight (Pounds): 180 Objective General Appearance: WD/WN, confused. on trach collar Neck: supple Cardiovascular: normal rate, regular rhythm Respiratory/Chest: chest wall non-tender, rhonchi - bilaterally(minimal) Abdomen: normal bowel sounds, non tender, soft, no organomegaly Edema: no edema noted Arm (L), no edema noted Arm (R), no edema noted Leg (L), no edema noted Leg (R), no edema noted Pedal (L), no edema noted Pedal (R), no edema noted Generalized Neurologic: disoriented, unresponsive, aphasia Irvin Beltrán MD Feb 24, 2019 08:31
--- NOTE | 2019-02-24 08:32 | Pulmonology Progress Note ---
Assessment/Plan Assessment/Plan Impression: Sepsis syndrome Pneumonia VDRF, Trach, G tube, Hypertension, Cardiac disease, Dementia, Previous CVA, Seizure disorder, Respiratory failure with hypoxia Anemia Sacral ulcer renal cyst pulmonary congestion Plan respiratory care to continue as is atropine neb therapy SNF meds as is off vent as able and has been off for several day Oxygen as needed Monitor labs daily changes noted and reviewed feeds as tolerated monitor albumin levels and provide protein and nutrition elevate head aspiration precautions Patient is a DNR. No CPR. ICU care reviewed medications/laboratory data/nursing notes/ICU care reviewed in detail note reviewed and edited care discussed with RN and RT ICU time spent 38 minutes Subjective Allergies: Coded Allergies: CODEINE (Verified Allergy, Unknown, HIVES, 09/15/09) Subjective respiratory care noted congestion- improved with atropine ICU care reviewed supportive care noted and reviewed RT care reviewed overnight care noted findings reviewed and discussed in detail with nursing and RT seen earlier this am Objective Last 24 Hour Vital Signs Date Time Temp Pulse Resp B/P (MAP) Pulse Ox O2 Delivery O2 Flow Rate FiO2 02/24/19 07:40 73 23 100 T-Piece 8.0 30 02/24/19 07:40 100 T-Piece 8.0 30 02/24/19 07:00 74 23 149/64 (92) 99 02/24/19 06:00 73 22 143/58 (86) 99 02/24/19 05:00 73 23 141/59 (86) 99 02/24/19 04:00 8.0 30 02/24/19 04:00 98.3 76 21 128/51 (76) 99 02/24/19 04:00 69 02/24/19 04:00 T-piece 8.0 02/24/19 03:12 76 20 100 T-Piece 8.0 30 77 22 97 02/24/19 03:11 97 T-Piece 8.0 30 02/24/19 03:00 69 23 111/45 (67) 98 02/24/19 02:00 66 23 117/50 (72) 98 02/24/19 01:00 68 24 137/81 (99) 97 02/24/19 00:00 70 02/24/19 00:00 98.7 71 21 124/75 (91) 99 02/24/19 00:00 T-piece 8.0 02/24/19 00:00 8.0 30 02/23/19 23:37 70 23 100 T-Piece 8.0 30 69 22 100 02/23/19 23:00 69 24 129/45 (73) 98 02/23/19 22:18 72 23 100 T-Piece 8.0 30 69 25 98 02/23/19 22:00 70 26 127/46 (73) 99 02/23/19 21:00 84 22 127/50 (75) 99 02/23/19 20:39 76 137/54 02/23/19 20:00 T-piece 8.0 02/23/19 20:00 8.0 30 02/23/19 20:00 80 02/23/19 20:00 99.0 80 23 137/54 (81) 97 02/23/19 19:21 98 T-Piece 8.0 30 02/23/19 19:16 83 21 100 T-Piece 8.0 30 81 22 98 02/23/19 19:00 80 28 115/51 (72) 96 02/23/19 18:00 78 24 116/51 (72) 97 02/23/19 17:00 99.3 85 23 141/54 (83) 99 02/23/19 16:00 T-piece 8.0 02/23/19 16:00 8.0 30 02/23/19 16:00 80 18 111/47 (68) 47 02/23/19 16:00 80 02/23/19 15:11 76 27 99 T-Piece 8.0 30 77 23 97 02/23/19 15:00 76 17 116/54 (74) 96 02/23/19 14:00 77 24 118/46 (70) 97 02/23/19 13:08 98 T-Piece 8.0 30 02/23/19 13:00 77 16 97/48 (64) 96 02/23/19 12:00 98.3 81 12 146/54 (84) 94 02/23/19 12:00 T-piece 8.0 02/23/19 12:00 8.0 30 02/23/19 12:00 78 02/23/19 11:00 72 23 117/44 (68) 99 02/23/19 10:53 75 25 100 T-Piece 8.0 30 72 28 100 02/23/19 10:00 72 21 126/53 (77) 100 02/23/19 09:16 95 31 99 T-Piece 8.0 30 91 24 96 02/23/19 09:00 91 26 96/46 (63) 96 Intake and Output 02/23/19 02/24/19 19:00 07:00 Intake Total 570 ml 420 ml Output Total 600 ml 600 ml Balance -30 ml -180 ml Free Water 150 ml Tube Feeding 420 ml 420 ml Output Urine Total 600 ml 600 ml # Bowel Movements 4 Objective WDWN NAD contracted off vent reduced breath sounds bilaterally with some rhonchi overall; no wheeze [id number] without MRG NABS nontender no HSM no CC minimal nonfocal nonverbal trach and gt reviewed and edited Laboratory Tests 02/24/19 06:20: White Blood Count 7.7, Red Blood Count 3.25L, Hemoglobin 8.7L, Hematocrit 27.7L , Mean Corpuscular Volume 85, Mean Corpuscular Hemoglobin 26.8L, Mean Corpuscular Hemoglobin Concent 31.4L, Red Cell Distribution Width 17.1H, Platelet Count 244, Mean Platelet Volume 5.0L, Neutrophils (%) (Auto) 53.6, Lymphocytes (%) (Auto) 34.1, Monocytes (%) (Auto) 6.7, Eosinophils (%) (Auto) 4.7H, Basophils (%) (Auto) 0.9, Sodium Level 143, Potassium Level 4.6, Chloride Level 107, Carbon Dioxide Level 31, Anion Gap 5, Blood Urea Nitrogen 26H, Creatinine 1.1, Estimat Glomerular Filtration Rate , Glucose Level 98, Calcium Level 8.7, Total Bilirubin 0.2, Aspartate Amino Transf (AST/SGOT) 18, Alanine Aminotransferase (ALT/SGPT) 18, Alkaline Phosphatase 126H, Total Protein 8.0, Albumin 2.4L, Globulin 5.6, Albumin/Globulin Ratio 0.4L Current Medications Medications (Trade) Dose Ordered Sig/Maicol Route PRN Reason Start Time Stop Time Status Last Admin Dose Admin Acetaminophen (Tylenol) 650 mg Q4H PRN GT Mild Pain/Temp > 100.5 02/18/19 05:44 03/05/19 05:43 02/23/19 21:33 Albuterol/ Ipratropium (Albuterol/ Ipratropium) 3 ml Q4H PRN HHN Shortness of Breath 02/22/19 07:07 02/27/19 07:06 02/23/19 23:37 Amikacin Sulfate (Amikin) 500 mg Q12HR@10,22 INH 02/20/19 22:00 02/27/19 21:59 02/23/19 22:18 Ascorbic Acid (Vitamin C) 250 mg DAILY GT 02/18/19 09:00 02/24/19 08:59 02/23/19 08:23 Atropine Sulfate (Atropine Opth Adriana) 1 drop TID SL 02/18/19 09:00 03/12/19 09:29 02/23/19 17:24 Chlorhexidine Gluconate (Cesilia-Hex 2%) 1 applic DAILY@1999 TOPIC 02/18/19 20:00 03/12/19 19:59 02/23/19 20:09 Heparin Sodium (Porcine) (Heparin 5000 units/ml) 5,000 units EVERY 12 HOURS SUBQ 02/18/19 09:00 03/16/19 23:14 02/23/19 20:41 Hydralazine HCl (Apresoline) 25 mg Q4H PRN GT SBP above 160 02/18/19 05:46 03/09/19 05:45 Levetiracetam (Keppra) 750 mg Q12HR GT 02/18/19 09:00 03/16/19 23:29 02/23/19 20:39 Metoclopramide HCl (Reglan) 10 mg Q6H PRN IVP Nausea & Vomiting 02/18/19 05:46 03/09/19 05:45 Metoprolol Tartrate (Lopressor) 25 mg Q12HR GT 02/18/19 09:00 03/16/19 23:29 02/23/19 20:39 Pantoprazole (Protonix) 40 mg Q12HR IVP 02/18/19 09:00 03/16/19 23:29 02/23/19 20:39 Amaury Chan MD Feb 24, 2019 08:32
--- NOTE | 2019-02-24 08:40 | NUR ---
NURSE NOTES: Seen by Dr. Chan and assessed patient. No new order at this time.
[2019-02-24] MEDS: Pantoprazole Inj IVP SCH ×2 (09:03→20:18)
[2019-02-24] MEDS: levETIRAcetam 500mg/5ml Liquid GT SCH ×2 (09:03→20:18)
[2019-02-24] MEDS: Heparin 5000 units/ml inj SUBQ SCH ×2 (09:06→20:19)
--- NOTE | 2019-02-24 09:23 | NUR ---
NURSE NOTES: All due medication given as ordered and provided oral care and suction.
[2019-02-24] MEDS: Amikacin for Inhalation 2ML INH SCH ×2 (10:20→22:10)
--- NOTE | 2019-02-24 10:30 | NUR ---
NURSE NOTES: Collected sputum and sent to the lab.
--- NOTE | 2019-02-24 10:55 | NUR ---
DISCHARGE PLANNING F/U CALL PLACED TO [facility] AND SPOKE WITH NATALIE WHO REQUESTED UPDATED CLINICALS AND LABS CLINICALS FAXED PER TEIY THEY HAVE SPOKEN TO DR CABA AND ARE TRYING TO MAKE A BED FOR THIS PATIENT NATALIE SAID SHE WOULD CALL THIS [employer] BACK LATER
[2019-02-24] MEDS ORDERED: NS 275ml ONE ×2 (11:02→11:04)
[2019-02-24] MEDS ORDERED: D5NS 1000ml IV ONE (11:02)
[2019-02-24] MEDS ORDERED: Sterile Water Irrig 2000ml IRRIG ONE (11:04)
--- NOTE | 2019-02-24 11:20 | Infectious Diseases Prog Note ---
"Assessment/Plan Assessment/Plan antibiotics : inhaled amikacin A 1. UTI with proteus s/p rx 2. respiratory failure 3. hypertension 4. CVA 5. dementia 6. sacral decubitus ulcer 7. rectal VRE colonization 8. klebsiella | providencia pneumonia 9. renal failure resolved P 1. continue inhaled amikacin 2 more days 2. will follow up cultures Subjective ROS Limited/Unobtainable: Yes Allergies: Coded Allergies: CODEINE (Verified Allergy, Unknown, HIVES, 09/15/09) Objective Vital Signs Last 24 Hour Vital Signs Date Time Temp Pulse Resp B/P (MAP) Pulse Ox O2 Delivery O2 Flow Rate FiO2 02/24/19 11:00 62 22 114/49 (70) 97 02/24/19 11:00 78 23 134/63 (86) 98 02/24/19 10:30 71 23 98 T-Piece 8.0 30 68 22 98 02/24/19 10:00 62 22 114/49 (70) 97 02/24/19 09:04 70 156/75 02/24/19 09:00 78 22 156/75 (102) 97 02/24/19 08:00 8.0 30 02/24/19 08:00 68 02/24/19 08:00 98.3 69 22 126/48 (74) 97 02/24/19 08:00 T-piece 8.0 02/24/19 07:40 73 23 100 T-Piece 8.0 30 02/24/19 07:40 100 T-Piece 8.0 30 02/24/19 07:00 74 23 149/64 (92) 99 02/24/19 06:00 73 22 143/58 (86) 99 02/24/19 05:00 73 23 141/59 (86) 99 02/24/19 04:00 8.0 30 02/24/19 04:00 98.3 76 21 128/51 (76) 99 02/24/19 04:00 69 02/24/19 04:00 T-piece 8.0 02/24/19 03:12 76 20 100 T-Piece 8.0 30 77 22 97 02/24/19 03:11 97 T-Piece 8.0 30 02/24/19 03:00 69 23 111/45 (67) 98 02/24/19 02:00 66 23 117/50 (72) 98 02/24/19 01:00 68 24 137/81 (99) 97 02/24/19 00:00 70 02/24/19 00:00 98.7 71 21 124/75 (91) 99 02/24/19 00:00 T-piece 8.0 02/24/19 00:00 8.0 30 02/23/19 23:37 70 23 100 T-Piece 8.0 30 69 22 100 02/23/19 23:00 69 24 129/45 (73) 98 02/23/19 22:18 72 23 100 T-Piece 8.0 30 69 25 98 02/23/19 22:00 70 26 127/46 (73) 99 02/23/19 21:00 84 22 127/50 (75) 99 02/23/19 20:39 76 137/54 02/23/19 20:00 T-piece 8.0 02/23/19 20:00 8.0 30 02/23/19 20:00 80 02/23/19 20:00 99.0 80 23 137/54 (81) 97 02/23/19 19:21 98 T-Piece 8.0 30 02/23/19 19:16 83 21 100 T-Piece 8.0 30 81 22 98 02/23/19 19:00 80 28 115/51 (72) 96 02/23/19 18:00 78 24 116/51 (72) 97 02/23/19 17:00 99.3 85 23 141/54 (83) 99 02/23/19 16:00 T-piece 8.0 02/23/19 16:00 8.0 30 02/23/19 16:00 80 18 111/47 (68) 47 02/23/19 16:00 80 02/23/19 15:11 76 27 99 T-Piece 8.0 30 77 23 97 02/23/19 15:00 76 17 116/54 (74) 96 02/23/19 14:00 77 24 118/46 (70) 97 02/23/19 13:08 98 T-Piece 8.0 30 02/23/19 13:00 77 16 97/48 (64) 96 02/23/19 12:00 98.3 81 12 146/54 (84) 94 02/23/19 12:00 T-piece 8.0 02/23/19 12:00 8.0 30 02/23/19 12:00 78 Height (Feet): 5 Height (Inches): 5.00 Weight (Pounds): 180 HEENT: status post trach Respiratory/Chest: lungs clear, rhonchi - bilaterally Cardiovascular: normal rate, regular rhythm, no gallop/murmur Abdomen: soft, non tender, other - Gt Extremities: no edema, other - right arm PICC Laboratory Tests Test 02/24/19 06:20 White Blood Count 7.7 K/UL (4.8-10.8) Red Blood Count 3.25 M/UL (4.20-5.40) L Hemoglobin 8.7 G/DL (12.0-16.0) L Hematocrit 27.7 % (37.0-47.0) L Mean Corpuscular Volume 85 FL (80-99) Mean Corpuscular Hemoglobin 26.8 PG (27.0-31.0) L Mean Corpuscular Hemoglobin Concent 31.4 G/DL (32.0-36.0) L Red Cell Distribution Width 17.1 % (11.6-14.8) H Platelet Count 244 K/UL (150-450) Mean Platelet Volume 5.0 FL (6.5-10.1) L Neutrophils (%) (Auto) 53.6 % (45.0-75.0) Lymphocytes (%) (Auto) 34.1 % (20.0-45.0) Monocytes (%) (Auto) 6.7 % (1.0-10.0) Eosinophils (%) (Auto) 4.7 % (0.0-3.0) H Basophils (%) (Auto) 0.9 % (0.0-2.0) Sodium Level 143 MMOL/L (136-145) Potassium Level 4.6 MMOL/L (3.5-5.1) Chloride Level 107 MMOL/L (98-107) Carbon Dioxide Level 31 MMOL/L (21-32) Anion Gap 5 mmol/L (5-15) Blood Urea Nitrogen 26 mg/dL (7-18) H Creatinine 1.1 MG/DL (0.55-1.30) Estimat Glomerular Filtration Rate mL/min (>60) Glucose Level 98 MG/DL (74-106) Calcium Level 8.7 MG/DL (8.5-10.1) Total Bilirubin 0.2 MG/DL (0.2-1.0) Aspartate Amino Transf (AST/SGOT) 18 U/L (15-37) Alanine Aminotransferase (ALT/SGPT) 18 U/L (12-78) Alkaline Phosphatase 126 U/L (46-116) H Total Protein 8.0 G/DL (6.4-8.2) Albumin 2.4 G/DL (3.4-5.0) L Globulin 5.6 g/dL Albumin/Globulin Ratio 0.4 (1.0-2.7) L Current Medications Medications (Trade) Dose Ordered Sig/Maicol Route PRN Reason Start Time Stop Time Status Last Admin Dose Admin Acetaminophen (Tylenol) 650 mg Q4H PRN GT Mild Pain/Temp > 100.5 02/18/19 05:44 03/05/19 05:43 02/23/19 21:33 Albuterol/ Ipratropium (Albuterol/ Ipratropium) 3 ml Q4H PRN HHN Shortness of Breath 02/22/19 07:07 02/27/19 07:06 02/23/19 23:37 Amikacin Sulfate (Amikin) 500 mg Q12HR@10,22 INH 02/20/19 22:00 02/27/19 21:59 02/24/19 10:20 Atropine Sulfate (Atropine Opth Adriana) 1 drop TID SL 02/18/19 09:00 03/12/19 09:29 02/24/19 09:11 Chlorhexidine Gluconate (Cesilia-Hex 2%) 1 applic DAILY@1999 TOPIC 02/18/19 20:00 03/12/19 19:59 02/23/19 20:09 Heparin Sodium (Porcine) (Heparin 5000 units/ml) 5,000 units EVERY 12 HOURS SUBQ 02/18/19 09:00 03/16/19 23:14 02/24/19 09:06 Hydralazine HCl (Apresoline) 25 mg Q4H PRN GT SBP above 160 02/18/19 05:46 03/09/19 05:45 Levetiracetam (Keppra) 750 mg Q12HR GT 02/18/19 09:00 03/16/19 23:29 02/24/19 09:03 Metoclopramide HCl (Reglan) 10 mg Q6H PRN IVP Nausea & Vomiting 02/18/19 05:46 03/09/19 05:45 Metoprolol Tartrate (Lopressor) 25 mg Q12HR GT 02/18/19 09:00 03/16/19 23:29 02/24/19 09:04 Pantoprazole (Protonix) 40 mg Q12HR IVP 02/18/19 09:00 03/16/19 23:29 02/24/19 09:03 Geovany Yang MD Feb 24, 2019 11:20"
--- NOTE | 2019-02-24 11:39 | Surgery Progress Note ---
Surgery Progress Note Subjective Additional Comments stable pending placement Objective Last 24 Hour Vital Signs Date Time Temp Pulse Resp B/P (MAP) Pulse Ox O2 Delivery O2 Flow Rate FiO2 02/24/19 11:00 62 22 114/49 (70) 97 02/24/19 11:00 78 23 134/63 (86) 98 02/24/19 10:30 71 23 98 T-Piece 8.0 30 68 22 98 02/24/19 10:00 62 22 114/49 (70) 97 02/24/19 09:04 70 156/75 02/24/19 09:00 78 22 156/75 (102) 97 02/24/19 08:00 8.0 30 02/24/19 08:00 68 02/24/19 08:00 98.3 69 22 126/48 (74) 97 02/24/19 08:00 T-piece 8.0 02/24/19 07:40 73 23 100 T-Piece 8.0 30 02/24/19 07:40 100 T-Piece 8.0 30 02/24/19 07:00 74 23 149/64 (92) 99 02/24/19 06:00 73 22 143/58 (86) 99 02/24/19 05:00 73 23 141/59 (86) 99 02/24/19 04:00 8.0 30 02/24/19 04:00 98.3 76 21 128/51 (76) 99 02/24/19 04:00 69 02/24/19 04:00 T-piece 8.0 02/24/19 03:12 76 20 100 T-Piece 8.0 30 77 22 97 02/24/19 03:11 97 T-Piece 8.0 30 02/24/19 03:00 69 23 111/45 (67) 98 02/24/19 02:00 66 23 117/50 (72) 98 02/24/19 01:00 68 24 137/81 (99) 97 02/24/19 00:00 70 02/24/19 00:00 98.7 71 21 124/75 (91) 99 02/24/19 00:00 T-piece 8.0 02/24/19 00:00 8.0 30 02/23/19 23:37 70 23 100 T-Piece 8.0 30 69 22 100 11/25/19 23:00 69 24 129/45 (73) 98 02/23/19 22:18 72 23 100 T-Piece 8.0 30 69 25 98 02/23/19 22:00 70 26 127/46 (73) 99 02/23/19 21:00 84 22 127/50 (75) 99 02/23/19 20:39 76 137/54 02/23/19 20:00 T-piece 8.0 02/23/19 20:00 8.0 30 02/23/19 20:00 80 02/23/19 20:00 99.0 80 23 137/54 (81) 97 02/23/19 19:21 98 T-Piece 8.0 30 02/23/19 19:16 83 21 100 T-Piece 8.0 30 81 22 98 02/23/19 19:00 80 28 115/51 (72) 96 02/23/19 18:00 78 24 116/51 (72) 97 02/23/19 17:00 99.3 85 23 141/54 (83) 99 02/23/19 16:00 T-piece 8.0 02/23/19 16:00 8.0 30 02/23/19 16:00 80 18 111/47 (68) 47 02/23/19 16:00 80 02/23/19 15:11 76 27 99 T-Piece 8.0 30 77 23 97 02/23/19 15:00 76 17 116/54 (74) 96 02/23/19 14:00 77 24 118/46 (70) 97 02/23/19 13:08 98 T-Piece 8.0 30 02/23/19 13:00 77 16 97/48 (64) 96 02/23/19 12:00 98.3 81 12 146/54 (84) 94 02/23/19 12:00 T-piece 8.0 02/23/19 12:00 8.0 30 02/23/19 12:00 78 I&O Intake and Output 02/23/19 02/24/19 18:59 06:59 Intake Total 570 ml 420 ml Output Total 600 ml 600 ml Balance -30 ml -180 ml Free Water 150 ml Tube Feeding 420 ml 420 ml Output Urine Total 600 ml 600 ml # Bowel Movements 4 Dressing: other Wound: other Drains: other Cardiovascular: RSR Respiratory: decreased breath sounds Abdomen: soft, present bowel sounds, non-distended Extremities: no cyanosis Laboratory Tests Test 02/24/19 06:20 White Blood Count 7.7 K/UL (4.8-10.8) Red Blood Count 3.25 M/UL (4.20-5.40) L Hemoglobin 8.7 G/DL (12.0-16.0) L Hematocrit 27.7 % (37.0-47.0) L Mean Corpuscular Volume 85 FL (80-99) Mean Corpuscular Hemoglobin 26.8 PG (27.0-31.0) L Mean Corpuscular Hemoglobin Concent 31.4 G/DL (32.0-36.0) L Red Cell Distribution Width 17.1 % (11.6-14.8) H Platelet Count 244 K/UL (150-450) Mean Platelet Volume 5.0 FL (6.5-10.1) L Neutrophils (%) (Auto) 53.6 % (45.0-75.0) Lymphocytes (%) (Auto) 34.1 % (20.0-45.0) Monocytes (%) (Auto) 6.7 % (1.0-10.0) Eosinophils (%) (Auto) 4.7 % (0.0-3.0) H Basophils (%) (Auto) 0.9 % (0.0-2.0) Sodium Level 143 MMOL/L (136-145) Potassium Level 4.6 MMOL/L (3.5-5.1) Chloride Level 107 MMOL/L (98-107) Carbon Dioxide Level 31 MMOL/L (21-32) Anion Gap 5 mmol/L (5-15) Blood Urea Nitrogen 26 mg/dL (7-18) H Creatinine 1.1 MG/DL (0.55-1.30) Estimat Glomerular Filtration Rate mL/min (>60) Glucose Level 98 MG/DL (74-106) Calcium Level 8.7 MG/DL (8.5-10.1) Total Bilirubin 0.2 MG/DL (0.2-1.0) Aspartate Amino Transf (AST/SGOT) 18 U/L (15-37) Alanine Aminotransferase (ALT/SGPT) 18 U/L (12-78) Alkaline Phosphatase 126 U/L (46-116) H Total Protein 8.0 G/DL (6.4-8.2) Albumin 2.4 G/DL (3.4-5.0) L Globulin 5.6 g/dL Albumin/Globulin Ratio 0.4 (1.0-2.7) L Plan Problems: (1) Sacral decubitus ulcer Assessment & Plan: This is a 83-year-old female with multiple medical committees that is currently admitted for medical care and management and identified to have multiple wounds requiring care. On admission patient noted to have a resolved sacral decubitus ulcer. Has had prior care and is well-healed at this time. Will ensure it does not open up again. Patient has a right ischial decubitus ulcer that is resolved. Scar intact and well formed. Will monitor to ensure it does not open up again. Patient has a left ischial decubitus ulcer that can be identified to be stage IV with palpable bone that has been resolving as noted by the periwound tissue and scar but open area approximately 1 cm x 1.5 cm few millimeters deep to bone identified. Unsure if this is been to be completely healed prior and has since opened or if has been healing at this level. No foul odor no drainage was unsure local wound care until healed Bilateral heels soft without signs of injury Resolving pressure injury L ischium(L)1.8cm x (W)1cm.Scattered biofilm at base of wound. Edges flat and adherent with surrounding hyperpigmentation. No odor or exudate noted. Sacrum is pale pink with surrounding hyperpigmentation. Hyperpigmentation R ischium with small sheared area centrally.No areas of erythema or exudate noted. Both heels are soft but blanchable. Skin Assessed under collar of trach and no evidence of skin breakdown noted. All wound Tx. are effective and continued as ordered. Pt ahs an APM/Belén mattress overlay and is being repositioned per protocols and per tolerance.No new skin concerns noted. Treatment plan: Please apply skin protectant and optifoam to sacral area. Change every 3 days Please apply skin protectant and optifoam to right ischial area. Change every 3 days Please apply Thera honey infused gauze to small opening in the left ischial wound bed followed by skin protectant in the periwound and up to foam. Change daily as needed saturation Apply Xeroform and dressing over left hand blister. Offload pressure from heels with pillow Air soft mattress Turn every 2 hours Nutritional optimization We will monitor follow with recommendations (2) Sepsis Assessment & Plan: IV abx as per ID trend labs improving wounds unlikely etiology likely respiratory imaging noted and okay abnormal lft's stable PICC on Abx in ICU for desaturation CXR with consolidation Evidence of left lower lobe pneumonia, also previously demonstrated Gastrostomy in good position Mild diastasis of the rectus abdominis musculature again demonstrated Retrosacral decubitus changes, better depicted on prior exam which included the pelvis Small hiatal hernia with evidence of trace gastroesophageal reflux (3) Feeding by G-tube Assessment & Plan: DAILY ESTIMATED NEEDS: Needs based on Pulmonary, wounds, bedbound/ 60kg adj 25-28 kcals/kg 6684-9614 total kcals 1.25-2 g protein/kg 75-120 g total protein 25-30 mL/kg 4299-2580 total fluid mLs NUTRITION DIAGNOSIS: * Swallowing difficulty R/T respiratory status as evidenced by pt on T-collar, now back the vent, PEG dep, TF changed to low rate at this time due to episodes of vomiting + residuals. * Increased kcal/prot needs R/T wound healing as evidenced by BL buttocks and sacral wound photos, refer to eval. (CURRENT TF:Glucerna 1.5 @35ml) ENTERAL NUTRITION RECOMMENDATIONS: VITAL AF 1.2 @ 55ml/hr x 24 hrs to provide 1320ml, 1584kcal, 99g prot, 1060ml free water - Once medically appropriate to resume TF, rec to initiate elemental and carb control formula of Vital 1.2 for possible improved tolerance - Initiate VITAL 1.2 @ 25ml/hr x 6hrs, advance 10ml q 4-6 hrs as tolerated to goal rate - Flush per MD/ HOB over 30 degrees ADDITIONAL RECOMMENDATIONS: 1) Re-calibrated bedscale wt for accurate CBW 2) Wound healing: Add Cristian 1pkt BID w/ improved Tf tolerace + MVI x1 daily 3) Monitor lytes, replete as needed (low Mg, K) 4) Monitor NPO status, ability to resume TF. -> held on and off due to vomiting since 02/02 5) SSI prn resume tube feeds (4) Chronic vegetative state Assessment & Plan: incontinence of urine and stool. can soil dressings. nurses doing great job with monitoring and changing prn (5) Leukocytosis Walter Madera Feb 24, 2019 11:39
--- NOTE | 2019-02-24 12:09 | Nephrology Progress Note ---
Assessment/Plan Problem List: (1) Acute renal failure (ARF) Assessment: Cr stable (2) Chronic respiratory failure (3) Anemia (4) Sepsis Assessment Acute renal failure Respiratory failure - Trach Low Mag- Low k , Low Na Anemia UTI / Sepsis Proteinuria / HypoAlbuminemia high Trigs Sz decubs bed bound DNR Plan K and Mag and Phos supplement as needed Hydrate Urine studies avoid Nephrotoxics mag K Phos supplements as needed monitor renal parameters Subjective ROS Limited/Unobtainable: No Objective Objective Last 24 Hour Vital Signs Date Time Temp Pulse Resp B/P (MAP) Pulse Ox O2 Delivery O2 Flow Rate FiO2 02/24/19 11:00 62 22 114/49 (70) 97 02/24/19 11:00 78 23 134/63 (86) 98 02/24/19 10:30 71 23 98 T-Piece 8.0 30 68 22 98 02/24/19 10:00 62 22 114/49 (70) 97 02/24/19 09:04 70 156/75 02/24/19 09:00 78 22 156/75 (102) 97 02/24/19 08:00 8.0 30 02/24/19 08:00 68 02/24/19 08:00 98.3 69 22 126/48 (74) 97 02/24/19 08:00 T-piece 8.0 02/24/19 07:40 73 23 100 T-Piece 8.0 30 02/24/19 07:40 100 T-Piece 8.0 30 02/24/19 07:00 74 23 149/64 (92) 99 02/24/19 06:00 73 22 143/58 (86) 99 02/24/19 05:00 73 23 141/59 (86) 99 02/24/19 04:00 8.0 30 02/24/19 04:00 98.3 76 21 128/51 (76) 99 02/24/19 04:00 69 02/24/19 04:00 T-piece 8.0 02/24/19 03:12 76 20 100 T-Piece 8.0 30 77 22 97 02/24/19 03:11 97 T-Piece 8.0 30 02/24/19 03:00 69 23 111/45 (67) 98 02/24/19 02:00 66 23 117/50 (72) 98 02/24/19 01:00 68 24 137/81 (99) 97 02/24/19 00:00 70 02/24/19 00:00 98.7 71 21 124/75 (91) 99 02/24/19 00:00 T-piece 8.0 02/24/19 00:00 8.0 30 02/23/19 23:37 70 23 100 T-Piece 8.0 30 69 22 100 02/23/19 23:00 69 24 129/45 (73) 98 02/23/19 22:18 72 23 100 T-Piece 8.0 30 69 25 98 02/23/19 22:00 70 26 127/46 (73) 99 02/23/19 21:00 84 22 127/50 (75) 99 02/23/19 20:39 76 137/54 02/23/19 20:00 T-piece 8.0 02/23/19 20:00 8.0 30 02/23/19 20:00 80 02/23/19 20:00 99.0 80 23 137/54 (81) 97 02/23/19 19:21 98 T-Piece 8.0 30 02/23/19 19:16 83 21 100 T-Piece 8.0 30 81 22 98 02/23/19 19:00 80 28 115/51 (72) 96 02/23/19 18:00 78 24 116/51 (72) 97 02/23/19 17:00 99.3 85 23 141/54 (83) 99 02/23/19 16:00 T-piece 8.0 02/23/19 16:00 8.0 30 02/23/19 16:00 80 18 111/47 (68) 47 02/23/19 16:00 80 02/23/19 15:11 76 27 99 T-Piece 8.0 30 77 23 97 02/23/19 15:00 76 17 116/54 (74) 96 02/23/19 14:00 77 24 118/46 (70) 97 02/23/19 13:08 98 T-Piece 8.0 30 02/23/19 13:00 77 16 97/48 (64) 96 Intake and Output 02/23/19 02/24/19 18:59 06:59 Intake Total 570 ml 420 ml Output Total 600 ml 600 ml Balance -30 ml -180 ml Free Water 150 ml Tube Feeding 420 ml 420 ml Output Urine Total 600 ml 600 ml # Bowel Movements 4 Laboratory Tests 02/24/19 06:20: White Blood Count 7.7, Red Blood Count 3.25L, Hemoglobin 8.7L, Hematocrit 27.7L , Mean Corpuscular Volume 85, Mean Corpuscular Hemoglobin 26.8L, Mean Corpuscular Hemoglobin Concent 31.4L, Red Cell Distribution Width 17.1H, Platelet Count 244, Mean Platelet Volume 5.0L, Neutrophils (%) (Auto) 53.6, Lymphocytes (%) (Auto) 34.1, Monocytes (%) (Auto) 6.7, Eosinophils (%) (Auto) 4.7H, Basophils (%) (Auto) 0.9, Sodium Level 143, Potassium Level 4.6, Chloride Level 107, Carbon Dioxide Level 31, Anion Gap 5, Blood Urea Nitrogen 26H, Creatinine 1.1, Estimat Glomerular Filtration Rate , Glucose Level 98, Calcium Level 8.7, Total Bilirubin 0.2, Aspartate Amino Transf (AST/SGOT) 18, Alanine Aminotransferase (ALT/SGPT) 18, Alkaline Phosphatase 126H, Total Protein 8.0, Albumin 2.4L, Globulin 5.6, Albumin/Globulin Ratio 0.4L Height (Feet): 5 Height (Inches): 5.00 Weight (Pounds): 180 General Appearance: no apparent distress Cardiovascular: normal rate Respiratory/Chest: decreased breath sounds Abdomen: distended Objective no change Eric Cortez MD Feb 24, 2019 12:09
--- NOTE | 2019-02-24 12:20 | NUR ---
NURSE NOTES: Oral care and suction given, Reposition patient. No acute distress/SOB.
--- NOTE | 2019-02-24 15:20 | NUR ---
NURSE NOTES: Bed bath given. Small soft brown color BM noted. Changed wound dressing. Provided oral care as well. Kept dry, clean, comfortable and HOB>30. Will continue plan of care.
--- NOTE | 2019-02-24 17:06 | NUR ---
NURSE NOTES: Repositioned patient. Kept comfortable.
--- NOTE | 2019-02-24 17:49 | NUR ---
NURSE NOTES: Seen by Dr. Vaughan and assessed.
--- NOTE | 2019-02-24 17:53 | General Progress Note ---
Assessment/Plan Status: stable, progressing Assessment/Plan: Assessment - N/V, periodic - suspect due to gastroparesis - will hold off on G to J conversion per daughter request - Elevated Alk phos / LFT - CT negative - abd U/S negative - check hepatitis serologies - negative - Anemia with OB (-) stools - Resp failure, s/p Trach - dysphagia, s/p PEG - OBS - poor Px Recommendations - laxative PRN - continue TF - aspiration precautions - elevate HOB - PPI - Elevate HOB Subjective Allergies: Coded Allergies: CODEINE (Verified Allergy, Unknown, HIVES, 09/15/09) Subjective Seen in ICU d/w RN tolerating TF no vomiting on T-piece for breathing Objective Last 24 Hour Vital Signs Date Time Temp Pulse Resp B/P (MAP) Pulse Ox O2 Delivery O2 Flow Rate FiO2 02/24/19 16:00 68 02/24/19 16:00 8.0 30 02/24/19 16:00 T-piece 8.0 02/24/19 16:00 97.5 67 23 144/63 (90) 100 02/24/19 15:00 64 23 131/54 (79) 97 02/24/19 15:00 74 23 149/77 (101) 100 02/24/19 14:00 64 23 131/54 (79) 97 02/24/19 13:00 64 23 133/55 (81) 97 02/24/19 12:51 98 T-Piece 8.0 30 02/24/19 12:00 8.0 30 02/24/19 12:00 98.3 63 23 105/50 (68) 96 02/24/19 12:00 64 02/24/19 12:00 T-piece 8.0 02/24/19 11:00 62 22 114/49 (70) 97 02/24/19 11:00 78 23 134/63 (86) 98 02/24/19 10:30 71 23 98 T-Piece 8.0 30 68 22 98 02/24/19 10:00 62 22 114/49 (70) 97 02/24/19 09:04 70 156/75 02/24/19 09:00 78 22 156/75 (102) 97 02/24/19 08:00 8.0 30 02/24/19 08:00 68 02/24/19 08:00 98.3 69 22 126/48 (74) 97 02/24/19 08:00 T-piece 8.0 02/24/19 07:40 73 23 100 T-Piece 8.0 30 02/24/19 07:40 100 T-Piece 8.0 30 02/24/19 07:00 74 23 149/64 (92) 99 02/24/19 06:00 73 22 143/58 (86) 99 02/24/19 05:00 73 23 141/59 (86) 99 02/24/19 04:00 8.0 30 02/24/19 04:00 98.3 76 21 128/51 (76) 99 02/24/19 04:00 69 02/24/19 04:00 T-piece 8.0 02/24/19 03:12 76 20 100 T-Piece 8.0 30 77 22 97 02/24/19 03:11 97 T-Piece 8.0 30 02/24/19 03:00 69 23 111/45 (67) 98 02/24/19 02:00 66 23 117/50 (72) 98 02/24/19 01:00 68 24 137/81 (99) 97 02/24/19 00:00 70 02/24/19 00:00 98.7 71 21 124/75 (91) 99 02/24/19 00:00 T-piece 8.0 02/24/19 00:00 8.0 30 02/23/19 23:37 70 23 100 T-Piece 8.0 30 69 22 100 02/23/19 23:00 69 24 129/45 (73) 98 02/23/19 22:18 72 23 100 T-Piece 8.0 30 69 25 98 02/23/19 22:00 70 26 127/46 (73) 99 02/23/19 21:00 84 22 127/50 (75) 99 02/23/19 20:39 76 137/54 02/23/19 20:00 T-piece 8.0 02/23/19 20:00 8.0 30 02/23/19 20:00 80 02/23/19 20:00 99.0 80 23 137/54 (81) 97 02/23/19 19:21 98 T-Piece 8.0 30 02/23/19 19:16 83 21 100 T-Piece 8.0 30 81 22 98 11/25/19 19:00 80 28 115/51 (72) 96 02/23/19 18:00 78 24 116/51 (72) 97 Intake and Output 02/23/19 02/24/19 18:59 06:59 Intake Total 570 ml 420 ml Output Total 600 ml 600 ml Balance -30 ml -180 ml Free Water 150 ml Tube Feeding 420 ml 420 ml Output Urine Total 600 ml 600 ml # Bowel Movements 4 Laboratory Tests 02/24/19 06:20: White Blood Count 7.7, Red Blood Count 3.25L, Hemoglobin 8.7L, Hematocrit 27.7L , Mean Corpuscular Volume 85, Mean Corpuscular Hemoglobin 26.8L, Mean Corpuscular Hemoglobin Concent 31.4L, Red Cell Distribution Width 17.1H, Platelet Count 244, Mean Platelet Volume 5.0L, Neutrophils (%) (Auto) 53.6, Lymphocytes (%) (Auto) 34.1, Monocytes (%) (Auto) 6.7, Eosinophils (%) (Auto) 4.7H, Basophils (%) (Auto) 0.9, Sodium Level 143, Potassium Level 4.6, Chloride Level 107, Carbon Dioxide Level 31, Anion Gap 5, Blood Urea Nitrogen 26H, Creatinine 1.1, Estimat Glomerular Filtration Rate , Glucose Level 98, Calcium Level 8.7, Total Bilirubin 0.2, Aspartate Amino Transf (AST/SGOT) 18, Alanine Aminotransferase (ALT/SGPT) 18, Alkaline Phosphatase 126H, Total Protein 8.0, Albumin 2.4L, Globulin 5.6, Albumin/Globulin Ratio 0.4L Height (Feet): 5 Height (Inches): 5.00 Weight (Pounds): 180 Objective Debilitated AA woman NCAT (+) trach coarse ronchi RR obese abd, (+) GT no edema Celio Vaughan MD Feb 24, 2019 17:52
--- NOTE | 2019-02-24 19:09 | NUR ---
HAND-OFF: Report given to JEANNINE Shields. Endorsed plan of care.
--- NOTE | 2019-02-24 19:10 | NUR ---
NURSE NOTES: Received patient from JEANNINE Ruiz. Will continue plan of care.
--- NOTE | 2019-02-24 20:00 | NUR ---
NURSE NOTES: Patient is obtunded, eyes open but does not track. Patient responds to pain and suctioning. Has T-Piece Shiley 6 XLT 30%. O2 saturating at 100%. On GT feeding of Glucerna 1.5 @ 35ml/hr. GT is flushed and patent. Purewick is suctioning. Bed low and lock- pt does not try to get out of bed.
[2019-02-24] MEDS: Dyna-Hex 2% Top Sol 2oz TOPIC SCH (20:18)
--- NOTE | 2019-02-24 22:00 | NUR ---
NURSE NOTES: Vital signs are stable. Patient turned and repositioned. Frequent suctioning provided. No change in condition.
[2019-02-25] VITALS (25 sets, daily range): BP systolic 110–171; BP diastolic 52–83
--- NOTE | 2019-02-25 02:00 | NUR ---
NURSE NOTES: Patient is stable. Bed bath, linen change, oral care, wound care/dressing change, frequent suctioning and turn-reposition provided. IV lines and NS bags are changed. GTube flushed and patent. Bed low, locked and alarm is on.
[2019-02-25] MEDS: HydrALAZINE 25mg tab GT PRN (02:45)
--- NOTE | 2019-02-25 04:00 | NUR ---
NURSE NOTES: 25mg hydralazine was given via GT for BP 172/66 @0300. Patient vital signs are now stable. Will continue to monitor.
--- NOTE | 2019-02-25 05:00 | Progress Note ---
DATE: 02/23/2019 CARDIOLOGY PROGRESS NOTE SUBJECTIVE: The patient remains on T-tube with standby vent support. OBJECTIVE: VITAL SIGNS: Blood pressure 135/71, pulse 76, respirations 24. Sinus rhythm. Baseline comatose. LUNGS: Bilateral rhonchi. Thin trach secretions. CARDIAC: Regular rhythm and rate. Normal S1, S2. ABDOMEN: Soft. G-tube in place. EXTREMITIES: Trace dependent edema. LABORATORY DATA: White count 11.3, hemoglobin 8.5. Sodium is 143, potassium 4.9, bicarb 34, BUN 25, and creatinine 1.2. Albumin 2.3. Pro-natriuretic peptide 469. IMPRESSION: 1. Respiratory failure. 2. Tracheostomy. 3. Chronic encephalopathy. 4. Recovered shock due to sepsis. 5. Healthcare-acquired pneumonia. 6. Acute on chronic diastolic congestive heart failure, now compensated. 7. Severe protein-calorie malnutrition. PLAN: Stable from a cardiovascular standpoint for transfer to a subacute facility. Cardiovascular regimen to be maintained without change including beta-martha at current dosing. No plan for chronic diuretic therapy, but mobilization of edema as colloid osmotic pressure improves. May require episodic furosemide. Bg Hagen M.D. DR: PHUONG JOB#: [id number] CC:
--- NOTE | 2019-02-25 05:30 | Progress Note ---
DATE: 02/24/2019 CARDIOLOGY PROGRESS NOTE SUBJECTIVE: Condition largely unchanged. Remains on ventilator support. Awaiting transfer to long subacute facility. OBJECTIVE: VITAL SIGNS: Blood pressure parameters stable. Sinus rhythm. LUNGS: With few rhonchi. Thin trach secretions on G-tube on standby. CARDIAC: Regular rhythm and rate. Normal S1 and S2. ABDOMEN: Soft. G-tube intact. EXTREMITIES: Trace edema. NEUROLOGIC: Comatose at baseline. IMPRESSION: Stable from cardiovascular standpoint. PLAN: 1. Continue beta-martha. 2. Continue monitoring volume status and cardiorenal function. 3. Periodic diuresis based on clinical parameters. 4. DVT prophylaxis and skin care. 5. Monitor laboratories and replace electrolytes as needed. 6. Protein supplement by feeding tube. Bg Hagen M.D. DR: GRACE JOB#: [id number] CC:
--- NOTE | 2019-02-25 06:00 | NUR ---
NURSE NOTES: Patient turned and repositioned. Frequent suctioning provided. GT flushed and patent. Purewick in place and suctioning well.
--- NOTE | 2019-02-25 07:19 | NUR ---
HAND-OFF: Report given to JEANNINE Schneider.
--- NOTE | 2019-02-25 07:20 | NUR ---
NURSE NOTES: Received patient in bed. Asleep, on continuous Tpiece oxygen therapy, with Fio2 of 30%. Tolerating gastrostomy tube feeding. Contact isolation observed. Will continue plan of care.
--- NOTE | 2019-02-25 07:45 | NUR ---
NURSE NOTES: Dr. Chauncey Liriano at bedside.
--- NOTE | 2019-02-25 07:56 | Infectious Diseases Prog Note ---
Assessment/Plan Assessment/Plan A 1. Providencia & Klebsiella pneumonia 2. respiratory failure 3. hypertension 4. CVA 5. dementia 6. sacral decubitus ulcer 7. rectal VRE colonization 8. Anemia 9. Proteus UTI 10. Acute renal failure 11. Leukocytosis P 1. Continue Amikacin inhaler X 1 day 2. Frequent suctioning 3. Remove PICC line before discharge Subjective ROS Limited/Unobtainable: Yes Constitutional: Denies: fever Respiratory: Reports: other - lots of respiratory secretions Allergies: Coded Allergies: CODEINE (Verified Allergy, Unknown, HIVES, 09/15/09) Objective Vital Signs Last 24 Hour Vital Signs Date Time Temp Pulse Resp B/P (MAP) Pulse Ox O2 Delivery O2 Flow Rate FiO2 02/25/19 07:04 79 22 97 T-Piece 8.0 30 02/25/19 07:04 100 T-Piece 8.0 30 02/25/19 07:00 66 23 128/83 (98) 98 02/25/19 06:00 67 17 110/60 (77) 96 02/25/19 05:00 64 23 151/55 (87) 98 02/25/19 04:00 8.0 30 02/25/19 04:00 98.5 65 23 138/52 (80) 98 02/25/19 04:00 T-piece 8.0 02/25/19 03:32 83 02/25/19 03:00 71 21 141/55 (83) 99 02/25/19 02:45 172/66 02/25/19 02:00 69 20 171/70 (103) 100 02/25/19 01:22 100 T-Piece 8.0 30 02/25/19 01:00 66 23 156/63 (94) 99 02/25/19 00:00 T-piece 8.0 02/25/19 00:00 97.9 64 23 165/67 (99) 100 02/25/19 00:00 8.0 30 02/24/19 23:29 63 02/24/19 23:00 63 21 156/63 (94) 100 02/24/19 22:10 66 20 100 T-Piece 8.0 30 63 21 100 02/24/19 22:00 64 22 157/66 (96) 100 02/24/19 21:00 68 22 150/63 (92) 100 02/24/19 20:20 68 157/85 02/24/19 20:00 T-piece 8.0 02/24/19 20:00 8.0 30 02/24/19 20:00 97.8 66 22 157/85 (109) 100 02/24/19 19:31 67 02/24/19 19:20 64 21 100 T-Piece 8.0 30 02/24/19 19:20 100 T-Piece 8.0 30 02/24/19 19:00 65 23 147/63 (91) 100 02/24/19 18:00 61 23 121/60 (80) 97 02/24/19 17:00 64 23 148/54 (85) 100 02/24/19 16:00 68 02/24/19 16:00 8.0 30 02/24/19 16:00 T-piece 8.0 02/24/19 16:00 97.5 67 23 144/63 (90) 100 02/24/19 15:00 64 23 131/54 (79) 97 02/24/19 15:00 74 23 149/77 (101) 100 02/24/19 14:00 64 23 131/54 (79) 97 02/24/19 13:00 64 23 133/55 (81) 97 02/24/19 12:51 98 T-Piece 8.0 30 02/24/19 12:00 8.0 30 02/24/19 12:00 98.3 63 23 105/50 (68) 96 02/24/19 12:00 64 02/24/19 12:00 T-piece 8.0 02/24/19 11:00 62 22 114/49 (70) 97 02/24/19 11:00 78 23 134/63 (86) 98 02/24/19 10:30 71 23 98 T-Piece 8.0 30 68 22 98 02/24/19 10:00 62 22 114/49 (70) 97 02/24/19 09:04 70 156/75 02/24/19 09:00 78 22 156/75 (102) 97 02/24/19 08:00 8.0 30 02/24/19 08:00 68 02/24/19 08:00 98.3 69 22 126/48 (74) 97 02/24/19 08:00 T-piece 8.0 Height (Feet): 5 Height (Inches): 5.00 Weight (Pounds): 180 General Appearance: no acute distress HEENT: status post trach Respiratory/Chest: lungs clear, other - on T bar Cardiovascular: normal rate, other - R arm PICC line Abdomen: soft, non tender, other - GT feeding Extremities: other - trace edema Neurologic/Psychiatric: aphasia Current Medications Medications (Trade) Dose Ordered Sig/Maicol Route PRN Reason Start Time Stop Time Status Last Admin Dose Admin Acetaminophen (Tylenol) 650 mg Q4H PRN GT Mild Pain/Temp > 100.5 02/18/19 05:44 03/05/19 05:43 02/23/19 21:33 Albuterol/ Ipratropium (Albuterol/ Ipratropium) 3 ml Q4H PRN HHN Shortness of Breath 02/22/19 07:07 02/27/19 07:06 02/23/19 23:37 Amikacin Sulfate (Amikin) 500 mg Q12HR@ INH 02/20/19 22:00 02/27/19 21:59 02/24/19 22:10 Atropine Sulfate (Atropine Opth Adriana) 1 drop TID SL 02/18/19 09:00 03/12/19 09:29 02/24/19 17:23 Chlorhexidine Gluconate (Cesilia-Hex 2%) 1 applic DAILY@1999 TOPIC 02/18/19 20:00 03/12/19 19:59 02/24/19 20:18 Heparin Sodium (Porcine) (Heparin 5000 units/ml) 5,000 units EVERY 12 HOURS SUBQ 02/18/19 09:00 03/16/19 23:14 02/24/19 20:19 Hydralazine HCl (Apresoline) 25 mg Q4H PRN GT SBP above 160 02/18/19 05:46 03/09/19 05:45 02/25/19 02:45 Levetiracetam (Keppra) 750 mg Q12HR GT 02/18/19 09:00 03/16/19 23:29 02/24/19 20:18 Metoclopramide HCl (Reglan) 10 mg Q6H PRN IVP Nausea & Vomiting 02/18/19 05:46 12/9/19 05:45 Metoprolol Tartrate (Lopressor) 25 mg Q12HR GT 02/18/19 09:00 03/16/19 23:29 02/24/19 20:20 Pantoprazole (Protonix) 40 mg Q12HR IVP 02/18/19 09:00 03/16/19 23:29 02/24/19 20:18 Chauncey Liriano MD Feb 25, 2019 07:56
--- NOTE | 2019-02-25 07:59 | NUR ---
NURSE NOTES: Dr. Vaughan at bedside.
--- NOTE | 2019-02-25 08:05 | NUR ---
NURSE NOTES: Dr. Beltrán at bedside.
--- NOTE | 2019-02-25 08:19 | General Progress Note ---
Assessment/Plan Problem List: (1) Seizure ICD Codes: R56.9 - Unspecified convulsions SNOMED: 45022974 (2) Anemia ICD Codes: D64.9 - Anemia, unspecified SNOMED: 824350846 Qualifiers: Qualified Codes: D64.9 - Anemia, unspecified (3) Sepsis ICD Codes: A41.9 - Sepsis, unspecified organism SNOMED: 04808239, 697003534 Qualifiers: Qualified Codes: A41.9 - Sepsis, unspecified organism (4) Respiratory failure with hypoxia ICD Codes: J96.91 - Respiratory failure, unspecified with hypoxia SNOMED: 95668759874182361 Qualifiers: Qualified Codes: J96.21 - Acute and chronic respiratory failure with hypoxia (5) HCAP (healthcare-associated pneumonia) ICD Codes: J18.9 - Pneumonia, unspecified organism SNOMED: 034124326, 446983492 (6) Sacral decubitus ulcer ICD Codes: L89.159 - Pressure ulcer of sacral region, unspecified stage SNOMED: 220349256 (7) HTN (hypertension) ICD Codes: I10 - Essential (primary) hypertension SNOMED: 70791656 (8) Chronic vegetative state ICD Codes: R40.3 - Persistent vegetative state SNOMED: 87886261 (9) Chronic respiratory failure ICD Codes: J96.10 - Chronic respiratory failure, unspecified whether with hypoxia or hypercapnia SNOMED: 74424974 (10) Limited mobility ICD Codes: Z74.09 - Other reduced mobility SNOMED: 7004039 Status: stable, progressing Assessment/Plan: vent prn as needed resp rx suctioning as needed gt feeds monitor for vomiting bowel regime monitor residuals sx rx repeat sputum culture transfuse prn dc planning Subjective ROS Limited/Unobtainable: No Constitutional: Reports: malaise, weakness HEENT: Reports: no symptoms Cardiovascular: Reports: no symptoms Respiratory: Reports: cough, shortness of breath, sputum Gastrointestinal/Abdominal: Reports: difficulty swallowing Genitourinary: Reports: no symptoms Neurologic/Psychiatric: Reports: pre-existing deficit, seizure Endocrine: Reports: no symptoms Hematologic/Lymphatic: Reports: no symptoms Allergies: Coded Allergies: CODEINE (Verified Allergy, Unknown, HIVES, 09/15/09) All Systems: reviewed and negative except above Subjective no events. remains on the vent. intermittently congested. no fever or chills. overall the same Objective Last 24 Hour Vital Signs Date Time Temp Pulse Resp B/P (MAP) Pulse Ox O2 Delivery O2 Flow Rate FiO2 02/25/19 07:04 79 22 97 T-Piece 8.0 30 02/25/19 07:04 100 T-Piece 8.0 30 02/25/19 07:00 66 23 128/83 (98) 98 02/25/19 06:00 67 17 110/60 (77) 96 02/25/19 05:00 64 23 151/55 (87) 98 02/25/19 04:00 8.0 30 02/25/19 04:00 98.5 65 23 138/52 (80) 98 02/25/19 04:00 T-piece 8.0 02/25/19 03:32 83 02/25/19 03:00 71 21 141/55 (83) 99 02/25/19 02:45 172/66 02/25/19 02:00 69 20 171/70 (103) 100 02/25/19 01:22 100 T-Piece 8.0 30 02/25/19 01:00 66 23 156/63 (94) 99 02/25/19 00:00 T-piece 8.0 02/25/19 00:00 97.9 64 23 165/67 (99) 100 02/25/19 00:00 8.0 30 02/24/19 23:29 63 02/24/19 23:00 63 21 156/63 (94) 100 02/24/19 22:10 66 20 100 T-Piece 8.0 30 63 21 100 02/24/19 22:00 64 22 157/66 (96) 100 02/24/19 21:00 68 22 150/63 (92) 100 02/24/19 20:20 68 157/85 02/24/19 20:00 T-piece 8.0 02/24/19 20:00 8.0 30 02/24/19 20:00 97.8 66 22 157/85 (109) 100 02/24/19 19:31 67 02/24/19 19:20 64 21 100 T-Piece 8.0 30 02/24/19 19:20 100 T-Piece 8.0 30 02/24/19 19:00 65 23 147/63 (91) 100 02/24/19 18:00 61 23 121/60 (80) 97 02/24/19 17:00 64 23 148/54 (85) 100 02/24/19 16:00 68 02/24/19 16:00 8.0 30 02/24/19 16:00 T-piece 8.0 02/24/19 16:00 97.5 67 23 144/63 (90) 100 02/24/19 15:00 64 23 131/54 (79) 97 02/24/19 15:00 74 23 149/77 (101) 100 02/24/19 14:00 64 23 131/54 (79) 97 02/24/19 13:00 64 23 133/55 (81) 97 02/24/19 12:51 98 T-Piece 8.0 30 02/24/19 12:00 8.0 30 02/24/19 12:00 98.3 63 23 105/50 (68) 96 02/24/19 12:00 64 02/24/19 12:00 T-piece 8.0 02/24/19 11:00 62 22 114/49 (70) 97 02/24/19 11:00 78 23 134/63 (86) 98 02/24/19 10:30 71 23 98 T-Piece 8.0 30 68 22 98 02/24/19 10:00 62 22 114/49 (70) 97 02/24/19 09:04 70 156/75 02/24/19 09:00 78 22 156/75 (102) 97 Intake and Output 02/24/19 02/25/19 19:00 07:00 Intake Total 470 ml 500 ml Output Total 600 ml 510 ml Balance -130 ml -10 ml Free Water 50 ml 30 ml Tube Feeding 420 ml 420 ml Other 50 ml Output Urine Total 600 ml 510 ml # Bowel Movements 2 4 Height (Feet): 5 Height (Inches): 5.00 Weight (Pounds): 180 Objective General Appearance: WD/WN, confused. on trach collar Neck: supple Cardiovascular: normal rate, regular rhythm Respiratory/Chest: chest wall non-tender, rhonchi - bilaterally(minimal) Abdomen: normal bowel sounds, non tender, soft, no organomegaly Edema: no edema noted Arm (L), no edema noted Arm (R), no edema noted Leg (L), no edema noted Leg (R), no edema noted Pedal (L), no edema noted Pedal (R), no edema noted Generalized Neurologic: disoriented, unresponsive, aphasia Irvin Beltrán MD Feb 25, 2019 08:19
[2019-02-25] MEDS: Amikacin for Inhalation 2ML INH SCH ×2 (08:43→22:28)
[2019-02-25] MEDS: Pantoprazole Inj IVP SCH ×2 (08:47→20:53)
[2019-02-25] MEDS: levETIRAcetam 500mg/5ml Liquid GT SCH ×2 (08:47→20:52)
[2019-02-25] MEDS: Heparin 5000 units/ml inj SUBQ SCH ×2 (08:49→20:58)
--- NOTE | 2019-02-25 09:20 | NUR ---
CASE MANAGEMENT:REVIEW 02/25/19 SI: SEPSIS. KPC PNA SACRAL DECUB. CHRONIC RESP FAILURE 98.2 77 23 122/55 97% ON T-PIECE 8L/30% FIO2 IS: AMIKACIN INH Q12HRS KEPPRA GT Q12 LOPRESSOR GT IV PROTONIX Q12 HEPARIN SQ Q12 ATROPINE SL TID MUCOMYST HHN Q4HRS RTC IVF@50/HR : NOW IN ICU PLAN: REFERRED TO [facility]
--- NOTE | 2019-02-25 09:27 | NUR ---
DISCHARGE PLANNING SEEKING SUB ACUTE PLACEMENT F/U ON REPEAT SPUTUM CULTURE
--- NOTE | 2019-02-25 10:42 | Nephrology Progress Note ---
Assessment/Plan Problem List: (1) Acute renal failure (ARF) Assessment: Cr stable (2) Chronic respiratory failure (3) Anemia (4) Sepsis Assessment Acute renal failure Respiratory failure - Trach Low Mag- Low k , Low Na Anemia UTI / Sepsis Proteinuria / HypoAlbuminemia high Trigs Sz decubs bed bound DNR Plan K and Mag and Phos supplement as needed Hydrate Urine studies avoid Nephrotoxics mag K Phos supplements as needed monitor renal parameters Subjective ROS Limited/Unobtainable: Yes Objective Objective Last 24 Hour Vital Signs Date Time Temp Pulse Resp B/P (MAP) Pulse Ox O2 Delivery O2 Flow Rate FiO2 02/25/19 10:00 67 20 134/58 (83) 100 02/25/19 09:00 71 24 137/70 (92) 98 02/25/19 08:47 77 122/55 02/25/19 08:43 85 22 99 T-Piece 8.0 30 78 20 100 02/25/19 08:00 98.2 77 23 122/55 (77) 97 02/25/19 08:00 30 02/25/19 08:00 T-piece 8.0 02/25/19 07:21 66 02/25/19 07:04 79 22 97 T-Piece 8.0 30 02/25/19 07:04 100 T-Piece 8.0 30 02/25/19 07:00 66 23 128/83 (98) 98 02/25/19 06:00 67 17 110/60 (77) 96 02/25/19 05:00 64 23 151/55 (87) 98 02/25/19 04:00 8.0 30 02/25/19 04:00 98.5 65 23 138/52 (80) 98 02/25/19 04:00 T-piece 8.0 02/25/19 03:32 83 02/25/19 03:00 71 21 141/55 (83) 99 02/25/19 02:45 172/66 02/25/19 02:00 69 20 171/70 (103) 100 02/25/19 01:22 100 T-Piece 8.0 30 02/25/19 01:00 66 23 156/63 (94) 99 02/25/19 00:00 T-piece 8.0 02/25/19 00:00 97.9 64 23 165/67 (99) 100 02/25/19 00:00 8.0 30 02/24/19 23:29 63 02/24/19 23:00 63 21 156/63 (94) 100 02/24/19 22:10 66 20 100 T-Piece 8.0 30 63 21 100 02/24/19 22:00 64 22 157/66 (96) 100 02/24/19 21:00 68 22 150/63 (92) 100 02/24/19 20:20 68 157/85 02/24/19 20:00 T-piece 8.0 02/24/19 20:00 8.0 30 02/24/19 20:00 97.8 66 22 157/85 (109) 100 02/24/19 19:31 67 02/24/19 19:20 64 21 100 T-Piece 8.0 30 02/24/19 19:20 100 T-Piece 8.0 30 02/24/19 19:00 65 23 147/63 (91) 100 02/24/19 18:00 61 23 121/60 (80) 97 02/24/19 17:00 64 23 148/54 (85) 100 02/24/19 16:00 68 02/24/19 16:00 8.0 30 02/24/19 16:00 T-piece 8.0 02/24/19 16:00 97.5 67 23 144/63 (90) 100 02/24/19 15:00 64 23 131/54 (79) 97 02/24/19 15:00 74 23 149/77 (101) 100 02/24/19 14:00 64 23 131/54 (79) 97 02/24/19 13:00 64 23 133/55 (81) 97 02/24/19 12:51 98 T-Piece 8.0 30 02/24/19 12:00 8.0 30 02/24/19 12:00 98.3 63 23 105/50 (68) 96 02/24/19 12:00 64 02/24/19 12:00 T-piece 8.0 02/24/19 11:00 62 22 114/49 (70) 97 02/24/19 11:00 78 23 134/63 (86) 98 Intake and Output 02/24/19 02/25/19 19:00 07:00 Intake Total 470 ml 500 ml Output Total 600 ml 510 ml Balance -130 ml -10 ml Free Water 50 ml 30 ml Tube Feeding 420 ml 420 ml Other 50 ml Output Urine Total 600 ml 510 ml # Bowel Movements 2 4 Height (Feet): 5 Height (Inches): 5.00 Weight (Pounds): 180 General Appearance: no apparent distress EENT: other - trach Cardiovascular: normal rate Respiratory/Chest: decreased breath sounds Abdomen: distended Objective no change Eric Cortez MD Feb 25, 2019 10:42
--- NOTE | 2019-02-25 12:00 | NUR ---
NURSE NOTES: Bedbath provided. Patient tolerated well.
--- NOTE | 2019-02-25 14:59 | NUR ---
RD ASSESSMENT & RECOMMENDATIONS SEE CARE ACTIVITY FOR COMPLETE ASSESSMENT DAILY ESTIMATED NEEDS: Needs based on Pulmonary, wounds, bedbound/ 60kg adj 25-28 kcals/kg 1559-9593 total kcals 1.25-2 g protein/kg 75-120 g total protein 25-30 mL/kg 6026-2585 total fluid mLs NUTRITION DIAGNOSIS: * Swallowing difficulty R/T respiratory status as evidenced by pt on T-collar, now back the vent, PEG dep, TF changed to low rate at this time due to episodes of vomiting + residuals. * Increased kcal/prot needs R/T wound healing as evidenced by BL buttocks and sacral wound photos, refer to eval. CURRENT TF:Glucerna 1.5 @ 35ml/hr x 24 hrs (per family request per RN) ENTERAL NUTRITION RECOMMENDATIONS: Glucerna 1.5 @ 45ml/hr x 24 hrs to provide 1080ml, 1620kcal, 89g prot, 820ml free water - W/ continued good TF tolerance, rec to increase goal rate to 45ml/hr x 24 hrs to meet 100% est kcal/prot needs - HOB over 30 degrees - Water flush of 170ml q 6 hrs * W/ any further TF intolerances, rec TF change to elemental and carb controlled formula of Vital AF 1.2 for possible improved tolerance -> Rec VITAL AF 1.2 @ 55ml/hr x 24 hrs to provide 1320ml, 1584kcal, 99g prot, 1060ml free water ADDITIONAL RECOMMENDATIONS: 1) Re-calibrated bedscale wt for accurate CBW 2) Wound healing: Add Cristian 1pkt BID w/ continued good TF tolerance + MVI x1 daily 3) Monitor lytes, replete as needed 4) Monitor BGs closely, need for NISS 5) Monitor TF tolerance: rec to increase TF as above w/ continued good TF tolerance (pt on low rate of 35ml/hr per family request per RN)
--- NOTE | 2019-02-25 16:22 | NUR ---
DISCHARGE PLANNING SPOKE TO OUR ICU'S CHARGE NURSE, MELVIN REQUESTED BEDSIDE NURSE CALL [facility] TOMORROW AND SEE IF A BED HAS BECOME AVAILABLE FOR THIS PATIENT [facility] T: [phone] OR [phone]
--- NOTE | 2019-02-25 18:59 | Pulmonolgy Critical Care Note ---
Critical Care - Asmt/Plan Assessment/Plan: Pulmonary CCM Progress Note Assessment/Plan Impression: Sepsis syndrome Pneumonia VDRF, Trach, G tube, Hypertension, Cardiac disease, Dementia, Previous CVA, Seizure disorder, Respiratory failure with hypoxia Anemia Sacral ulcer renal cyst pulmonary congestion Plan respiratory care to continue as is atropine neb therapy SNF meds as is off vent as able and has been off for several day Oxygen as needed Monitor labs daily changes noted and reviewed feeds as tolerated monitor albumin levels and provide protein and nutrition elevate head aspiration precautions Patient is a DNR. No CPR. ICU care reviewed medications/laboratory data/nursing notes/ICU care reviewed in detail note reviewed and edited care discussed with RN and RT ICU time spent 45 minutes Subjective Allergies: Coded Allergies: CODEINE (Verified Allergy, Unknown, HIVES, 09/15/09) Subjective respiratory care noted congestion- improved with atropine ICU care reviewed supportive care noted and reviewed RT care reviewed overnight care noted findings reviewed and discussed in detail with nursing and RT seen earlier this am Objective Vital Signs Noted Objective WDWN NAD contracted off vent reduced breath sounds bilaterally with some rhonchi overall; no wheeze [id number] without MRG NABS nontender no HSM no CC minimal nonfocal nonverbal trach and gt reviewed and edited Laboratory Tests Noted 02/24/19 06:20: White Blood Count 7.7, Red Blood Count 3.25L, Hemoglobin 8.7L, Hematocrit 27.7L , Mean Corpuscular Volume 85, Mean Corpuscular Hemoglobin 26.8L, Mean Corpuscular Hemoglobin Concent 31.4L, Red Cell Distribution Width 17.1H, Platelet Count 244, Mean Platelet Volume 5.0L, Neutrophils (%) (Auto) 53.6, Lymphocytes (%) (Auto) 34.1, Monocytes (%) (Auto) 6.7, Eosinophils (%) (Auto) 4.7H, Basophils (%) (Auto) 0.9, Sodium Level 143, Potassium Level 4.6, Chloride Level 107, Carbon Dioxide Level 31, Anion Gap 5, Blood Urea Nitrogen 26H, Creatinine 1.1, Estimat Glomerular Filtration Rate , Glucose Level 98, Calcium Level 8.7, Total Bilirubin 0.2, Aspartate Amino Transf (AST/SGOT) 18, Alanine Aminotransferase (ALT/SGPT) 18, Alkaline Phosphatase 126H, Total Protein 8.0, Albumin 2.4L, Globulin 5.6, Albumin/Globulin Ratio 0.4L Current Medications Medications (Trade) Dose Ordered Sig/Maicol Route PRN Reason Start Time Stop Time Status Last Admin Dose Admin Acetaminophen (Tylenol) 650 mg Q4H PRN GT Mild Pain/Temp > 100.5 02/18/19 05:44 03/05/19 05:43 02/23/19 21:33 Albuterol/ Ipratropium (Albuterol/ Ipratropium) 3 ml Q4H PRN HHN Shortness of Breath 02/22/19 07:07 02/27/19 07:06 02/23/19 23:37 Amikacin Sulfate (Amikin) 500 mg Q12HR@ INH 02/20/19 22:00 02/27/19 21:59 02/23/19 22:18 Ascorbic Acid (Vitamin C) 250 mg DAILY GT 02/18/19 09:00 02/24/19 08:59 02/23/19 08:23 Atropine Sulfate (Atropine Opth Adriana) 1 drop TID SL 02/18/19 09:00 03/12/19 09:29 02/23/19 17:24 Chlorhexidine Gluconate (Cesilia-Hex 2%) 1 applic DAILY@1999 TOPIC 02/18/19 20:00 03/12/19 19:59 02/23/19 20:09 Heparin Sodium (Porcine) (Heparin 5000 units/ml) 5,000 units EVERY 12 HOURS SUBQ 02/18/19 09:00 03/16/19 23:14 02/23/19 20:41 Hydralazine HCl (Apresoline) 25 mg Q4H PRN GT SBP above 160 02/18/19 05:46 03/09/19 05:45 Levetiracetam (Keppra) 750 mg Q12HR GT 02/18/19 09:00 03/16/19 23:29 02/23/19 20:39 Metoclopramide HCl (Reglan) 10 mg Q6H PRN IVP Nausea & Vomiting 02/18/19 05:46 03/09/19 05:45 Metoprolol Tartrate (Lopressor) 25 mg Q12HR GT 02/18/19 09:00 03/16/19 23:29 02/23/19 20:39 Pantoprazole (Protonix) 40 mg Q12HR IVP 02/18/19 09:00 03/16/19 23:29 02/23/19 20:39 Critical Care - Objective Last 24 Hour Vital Signs Date Time Temp Pulse Resp B/P (MAP) Pulse Ox O2 Delivery O2 Flow Rate FiO2 02/25/19 18:00 69 29 136/62 (86) 100 02/25/19 17:00 67 22 117/55 (75) 100 02/25/19 16:00 30 02/25/19 16:00 T-piece 8.0 02/25/19 16:00 98.3 68 22 141/59 (86) 100 02/25/19 15:24 70 02/25/19 15:00 75 22 156/69 (98) 100 02/25/19 14:00 73 22 139/57 (84) 99 02/25/19 13:11 99 T-Piece 8.0 30 02/25/19 13:00 65 21 146/58 (87) 100 02/25/19 12:00 98.3 69 22 136/72 (93) 100 02/25/19 12:00 30 02/25/19 12:00 T-piece 8.0 02/25/19 11:44 71 02/25/19 11:00 68 20 152/65 (94) 100 02/25/19 10:00 67 20 134/58 (83) 100 02/25/19 09:00 71 24 137/70 (92) 98 02/25/19 08:47 77 122/55 02/25/19 08:43 85 22 99 T-Piece 8.0 30 78 20 100 02/25/19 08:00 98.2 77 23 122/55 (77) 97 02/25/19 08:00 30 02/25/19 08:00 T-piece 8.0 02/25/19 07:21 66 02/25/19 07:04 79 22 97 T-Piece 8.0 30 02/25/19 07:04 100 T-Piece 8.0 30 02/25/19 07:00 66 23 128/83 (98) 98 02/25/19 06:00 67 17 110/60 (77) 96 02/25/19 05:00 64 23 151/55 (87) 98 02/25/19 04:00 8.0 30 02/25/19 04:00 98.5 65 23 138/52 (80) 98 02/25/19 04:00 T-piece 8.0 02/25/19 03:32 83 02/25/19 03:00 71 21 141/55 (83) 99 02/25/19 02:45 172/66 02/25/19 02:00 69 20 171/70 (103) 100 02/25/19 01:22 100 T-Piece 8.0 30 02/25/19 01:00 66 23 156/63 (94) 99 02/25/19 00:00 T-piece 8.0 02/25/19 00:00 97.9 64 23 165/67 (99) 100 02/25/19 00:00 8.0 30 02/24/19 23:29 63 02/24/19 23:00 63 21 156/63 (94) 100 02/24/19 22:10 66 20 100 T-Piece 8.0 30 63 21 100 02/24/19 22:00 64 22 157/66 (96) 100 02/24/19 21:00 68 22 150/63 (92) 100 02/24/19 20:20 68 157/85 02/24/19 20:00 T-piece 8.0 02/24/19 20:00 8.0 30 02/24/19 20:00 97.8 66 22 157/85 (109) 100 02/24/19 19:31 67 02/24/19 19:20 64 21 100 T-Piece 8.0 30 02/24/19 19:20 100 T-Piece 8.0 30 02/24/19 19:00 65 23 147/63 (91) 100 Micro: Microbiology Date/Time Source Procedure Growth Status 02/24/19 10:35 Sputum Gram Stain - Final Resulted 02/24/19 10:35 Sputum Sputum Culture Pending Resulted Critical Care - Subjective ROS Limited/Unobtainable: No FI02: 30 Vent Support Mode: CPAP Vent Tidal Volume: 450 Sputum Amount: Large PEEP: 5.0 PIP: 19 Tube Feeding Amount: 35 I&O: Intake and Output 02/24/19 02/25/19 18:59 06:59 Intake Total 470 ml 500 ml Output Total 600 ml 535 ml Balance -130 ml -35 ml Free Water 50 ml 30 ml Tube Feeding 420 ml 420 ml Other 50 ml Output Urine Total 600 ml 535 ml # Bowel Movements 2 4 ET-Tube: 6.0 Bg Moffett MD Feb 25, 2019 18:59
--- NOTE | 2019-02-25 19:18 | NUR ---
HAND-OFF: Report given to JEANNINE Ford.
--- NOTE | 2019-02-25 19:21 | Surgery Progress Note ---
Surgery Progress Note Subjective Additional Comments No acute events Objective Last 24 Hour Vital Signs Date Time Temp Pulse Resp B/P (MAP) Pulse Ox O2 Delivery O2 Flow Rate FiO2 02/25/19 19:00 66 25 149/57 (87) 100 02/25/19 18:00 69 29 136/62 (86) 100 02/25/19 17:00 67 22 117/55 (75) 100 02/25/19 16:00 30 02/25/19 16:00 T-piece 8.0 02/25/19 16:00 98.3 68 22 141/59 (86) 100 02/25/19 15:24 70 02/25/19 15:00 75 22 156/69 (98) 100 02/25/19 14:00 73 22 139/57 (84) 99 02/25/19 13:11 99 T-Piece 8.0 30 02/25/19 13:00 65 21 146/58 (87) 100 02/25/19 12:00 98.3 69 22 136/72 (93) 100 02/25/19 12:00 30 02/25/19 12:00 T-piece 8.0 02/25/19 11:44 71 02/25/19 11:00 68 20 152/65 (94) 100 02/25/19 10:00 67 20 134/58 (83) 100 02/25/19 09:00 71 24 137/70 (92) 98 02/25/19 08:47 77 122/55 02/25/19 08:43 85 22 99 T-Piece 8.0 30 78 20 100 02/25/19 08:00 98.2 77 23 122/55 (77) 97 02/25/19 08:00 30 02/25/19 08:00 T-piece 8.0 02/25/19 07:21 66 02/25/19 07:04 79 22 97 T-Piece 8.0 30 02/25/19 07:04 100 T-Piece 8.0 30 02/25/19 07:00 66 23 128/83 (98) 98 02/25/19 06:00 67 17 110/60 (77) 96 02/25/19 05:00 64 23 151/55 (87) 98 02/25/19 04:00 8.0 30 02/25/19 04:00 98.5 65 23 138/52 (80) 98 02/25/19 04:00 T-piece 8.0 02/25/19 03:32 83 02/25/19 03:00 71 21 141/55 (83) 99 02/25/19 02:45 172/66 02/25/19 02:00 69 20 171/70 (103) 100 02/25/19 01:22 100 T-Piece 8.0 30 02/25/19 01:00 66 23 156/63 (94) 99 02/25/19 00:00 T-piece 8.0 02/25/19 00:00 97.9 64 23 165/67 (99) 100 02/25/19 00:00 8.0 30 02/24/19 23:29 63 02/24/19 23:00 63 21 156/63 (94) 100 02/24/19 22:10 66 20 100 T-Piece 8.0 30 63 21 100 02/24/19 22:00 64 22 157/66 (96) 100 02/24/19 21:00 68 22 150/63 (92) 100 02/24/19 20:20 68 157/85 02/24/19 20:00 T-piece 8.0 02/24/19 20:00 8.0 30 02/24/19 20:00 97.8 66 22 157/85 (109) 100 02/24/19 19:31 67 I&O Intake and Output 02/24/19 02/25/19 18:59 06:59 Intake Total 470 ml 500 ml Output Total 600 ml 535 ml Balance -130 ml -35 ml Free Water 50 ml 30 ml Tube Feeding 420 ml 420 ml Other 50 ml Output Urine Total 600 ml 535 ml # Bowel Movements 2 4 Dressing: other Wound: other Drains: other Cardiovascular: RSR Respiratory: decreased breath sounds Abdomen: soft, present bowel sounds Extremities: no cyanosis, other Plan Problems: (1) Sacral decubitus ulcer Assessment & Plan: This is a 83-year-old female with multiple medical committees that is currently admitted for medical care and management and identified to have multiple wounds requiring care. On admission patient noted to have a resolved sacral decubitus ulcer. Has had prior care and is well-healed at this time. Will ensure it does not open up again. Patient has a right ischial decubitus ulcer that is resolved. Scar intact and well formed. Will monitor to ensure it does not open up again. Patient has a left ischial decubitus ulcer that can be identified to be stage IV with palpable bone that has been resolving as noted by the periwound tissue and scar but open area approximately 1 cm x 1.5 cm few millimeters deep to bone identified. Unsure if this is been to be completely healed prior and has since opened or if has been healing at this level. No foul odor no drainage was unsure local wound care until healed Bilateral heels soft without signs of injury Resolving pressure injury L ischium(L)1.8cm x (W)1cm.Scattered biofilm at base of wound. Edges flat and adherent with surrounding hyperpigmentation. No odor or exudate noted. Sacrum is pale pink with surrounding hyperpigmentation. Hyperpigmentation R ischium with small sheared area centrally.No areas of erythema or exudate noted. Both heels are soft but blanchable. Skin Assessed under collar of trach and no evidence of skin breakdown noted. All wound Tx. are effective and continued as ordered. Pt ahs an APM/Belén mattress overlay and is being repositioned per protocols and per tolerance.No new skin concerns noted. Treatment plan: Please apply skin protectant and optifoam to sacral area. Change every 3 days Please apply skin protectant and optifoam to right ischial area. Change every 3 days Please apply Thera honey infused gauze to small opening in the left ischial wound bed followed by skin protectant in the periwound and up to foam. Change daily as needed saturation Apply Xeroform and dressing over left hand blister. Offload pressure from heels with pillow Air soft mattress Turn every 2 hours Nutritional optimization We will monitor follow with recommendations (2) Sepsis Assessment & Plan: IV abx as per ID trend labs improving wounds unlikely etiology likely respiratory imaging noted and okay abnormal lft's stable PICC on Abx in ICU for desaturation CXR with consolidation Evidence of left lower lobe pneumonia, also previously demonstrated Gastrostomy in good position Mild diastasis of the rectus abdominis musculature again demonstrated Retrosacral decubitus changes, better depicted on prior exam which included the pelvis Small hiatal hernia with evidence of trace gastroesophageal reflux (3) Feeding by G-tube Assessment & Plan: DAILY ESTIMATED NEEDS: Needs based on Pulmonary, wounds, bedbound/ 60kg adj 25-28 kcals/kg 1360-9374 total kcals 1.25-2 g protein/kg 75-120 g total protein 25-30 mL/kg 1349-4065 total fluid mLs NUTRITION DIAGNOSIS: * Swallowing difficulty R/T respiratory status as evidenced by pt on T-collar, now back the vent, PEG dep, TF changed to low rate at this time due to episodes of vomiting + residuals. * Increased kcal/prot needs R/T wound healing as evidenced by BL buttocks and sacral wound photos, refer to WC eval. (CURRENT TF:Glucerna 1.5 @35ml) ENTERAL NUTRITION RECOMMENDATIONS: VITAL AF 1.2 @ 55ml/hr x 24 hrs to provide 1320ml, 1584kcal, 99g prot, 1060ml free water - Once medically appropriate to resume TF, rec to initiate elemental and carb control formula of Vital 1.2 for possible improved tolerance - Initiate VITAL 1.2 @ 25ml/hr x 6hrs, advance 10ml q 4-6 hrs as tolerated to goal rate - Flush per MD/ HOB over 30 degrees ADDITIONAL RECOMMENDATIONS: 1) Re-calibrated bedscale wt for accurate CBW 2) Wound healing: Add Cristian 1pkt BID w/ improved Tf tolerace + MVI x1 daily 3) Monitor lytes, replete as needed (low Mg, K) 4) Monitor NPO status, ability to resume TF. -> held on and off due to vomiting since 02/02 5) SSI prn resume tube feeds (4) Chronic vegetative state Assessment & Plan: incontinence of urine and stool. can soil dressings. nurses doing great job with monitoring and changing prn (5) Leukocytosis Walter Madera Feb 25, 2019 19:21
--- NOTE | 2019-02-25 20:00 | NUR ---
NURSE NOTES: received report fr berger rn obtunded open eyes to touch but no tracking upper extremities contracted no movement upper and lower extremities [id number] on 30 0/0 fio2 o2 sat 100 0/o tolerating tube feeding no residual reposition and suction
[2019-02-25] MEDS: Dyna-Hex 2% Top Sol 2oz TOPIC SCH (20:52)
--- NOTE | 2019-02-25 21:59 | General Progress Note ---
Assessment/Plan Status: stable, progressing Assessment/Plan: Assessment - N/V, periodic - suspect due to gastroparesis - will hold off on G to J conversion per daughter request - Elevated Alk phos / LFT - CT negative - abd U/S negative - check hepatitis serologies - negative - Anemia with OB (-) stools - Resp failure, s/p Trach - dysphagia, s/p PEG - OBS - poor Px Recommendations - laxative PRN - continue TF - aspiration precautions - elevate HOB - PPI Subjective Allergies: Coded Allergies: CODEINE (Verified Allergy, Unknown, HIVES, 09/15/09) Subjective Seen in ICU d/w RN tolerating TF no vomiting on T-piece for breathing Objective Last 24 Hour Vital Signs Date Time Temp Pulse Resp B/P (MAP) Pulse Ox O2 Delivery O2 Flow Rate FiO2 02/25/19 21:00 67 23 153/64 (93) 100 02/25/19 20:58 65 22 155/64 (94) 100 02/25/19 20:53 71 170/63 02/25/19 20:00 T-piece 8.0 02/25/19 20:00 65 02/25/19 20:00 97.8 65 22 170/63 (98) 100 02/25/19 20:00 30 02/25/19 19:26 100 T-Piece 8.0 30 02/25/19 19:26 77 24 100 T-Piece 8.0 30 02/25/19 19:00 66 25 149/57 (87) 100 02/25/19 18:00 69 29 136/62 (86) 100 02/25/19 17:00 67 22 117/55 (75) 100 02/25/19 16:00 30 02/25/19 16:00 T-piece 8.0 02/25/19 16:00 98.3 68 22 141/59 (86) 100 02/25/19 15:24 70 02/25/19 15:00 75 22 156/69 (98) 100 02/25/19 14:00 73 22 139/57 (84) 99 02/25/19 13:11 99 T-Piece 8.0 30 02/25/19 13:00 65 21 146/58 (87) 100 02/25/19 12:00 98.3 69 22 136/72 (93) 100 02/25/19 12:00 30 02/25/19 12:00 T-piece 8.0 02/25/19 11:44 71 02/25/19 11:00 68 20 152/65 (94) 100 02/25/19 10:00 67 20 134/58 (83) 100 02/25/19 09:00 71 24 137/70 (92) 98 02/25/19 08:47 77 122/55 02/25/19 08:43 85 22 99 T-Piece 8.0 30 78 20 100 02/25/19 08:00 98.2 77 23 122/55 (77) 97 02/25/19 08:00 30 02/25/19 08:00 T-piece 8.0 02/25/19 07:21 66 02/25/19 07:04 79 22 97 T-Piece 8.0 30 02/25/19 07:04 100 T-Piece 8.0 30 02/25/19 07:00 66 23 128/83 (98) 98 02/25/19 06:00 67 17 110/60 (77) 96 02/25/19 05:00 64 23 151/55 (87) 98 02/25/19 04:00 8.0 30 02/25/19 04:00 98.5 65 23 138/52 (80) 98 02/25/19 04:00 T-piece 8.0 02/25/19 03:32 83 02/25/19 03:00 71 21 141/55 (83) 99 02/25/19 02:45 172/66 02/25/19 02:00 69 20 171/70 (103) 100 02/25/19 01:22 100 T-Piece 8.0 30 02/25/19 01:00 66 23 156/63 (94) 99 02/25/19 00:00 T-piece 8.0 02/25/19 00:00 97.9 64 23 165/67 (99) 100 02/25/19 00:00 8.0 30 02/24/19 23:29 63 02/24/19 23:00 63 21 156/63 (94) 100 02/24/19 22:10 66 20 100 T-Piece 8.0 30 63 21 100 02/24/19 22:00 64 22 157/66 (96) 100 Intake and Output 02/24/19 02/25/19 18:59 06:59 Intake Total 470 ml 500 ml Output Total 600 ml 535 ml Balance -130 ml -35 ml Free Water 50 ml 30 ml Tube Feeding 420 ml 420 ml Other 50 ml Output Urine Total 600 ml 535 ml # Bowel Movements 2 4 Height (Feet): 5 Height (Inches): 5.00 Weight (Pounds): 180 Objective Debilitated AA woman NCAT (+) trach coarse ronchi RR obese abd, (+) GT no edema Celio Vaughan MD Feb 25, 2019 21:59
--- NOTE | 2019-02-25 22:00 | NUR ---
NURSE NOTES: reposition and suction no acute distress note
[2019-02-26] VITALS (24 sets, daily range): BP systolic 105–180; BP diastolic 47–98
--- NOTE | 2019-02-26 | NUR ---
NURSE NOTES: tolerating tube feeding no residual reposition and suction
--- NOTE | 2019-02-26 02:00 | NUR ---
NURSE NOTES: reposition and suction no acute resp distress noted
--- NOTE | 2019-02-26 03:45 | Progress Note ---
DATE: 02/25/2019 CARDIOLOGY PROGRESS NOTE SUBJECTIVE: The patient was congested and remains on ventilator support. Monitored rhythm sinus. OBJECTIVE: VITAL SIGNS: Blood pressure 128/83, pulse 66, and respiratory rate 23. Occasionally on T-tube. LUNGS: Bilateral breath sounds. CARDIAC: Regular rhythm and rate. Normal S1 and S2. ABDOMEN: Soft. G-tube intact. EXTREMITIES: Trace dependent edema. LABORATORY DATA: Labs reviewed. IMPRESSION AND PLAN: Stable for subacute level of care. Awaiting placement. Medications reviewed. Care plan discussed with staff. We will continue to monitor labs, cardiorenal parameters, and volume status and adjust therapy accordingly. Bg Hagen M.D. DR: CHARLEE JOB#: [id number] CC:
--- NOTE | 2019-02-26 04:00 | NUR ---
NURSE NOTES: complete bed bath oral care trach care and wound care done reposition and suction
[2019-02-26] MEDS: levETIRAcetam 500mg/5ml Liquid GT SCH ×2 (05:30→09:29)
--- NOTE | 2019-02-26 06:37 | NUR ---
NURSE NOTES: reposition and suction tolerating tube feeding no residual no acute distress noted
--- NOTE | 2019-02-26 07:26 | NUR ---
HAND-OFF: Report given to lin mann using sbar.
--- NOTE | 2019-02-26 07:27 | NUR ---
NURSE NOTES: Received patient from JEANNINE Armstrong. Patient sleeping at this time. Patient opens eyes to shaking and deep/light pain. Patient does not follow commands and does not track. Patient does not move arms or legs. Strength 0/5 bilateral arms and legs. Patient has tracheostomy Shiley size 6.0 that is patent, asymptomatic, and on T-piece with 30% FiO2. Patient has gastrostomy tube that is patent, asymptomatic, and running glucerna 1.5 at 35mL/hr at this time. Patient bilateral upper and lower extremities contracted. Sacral partial thickness pressure injury noted on sacral. Patient has a purewick in place for incontinence. Patient has right upper arm PICC that is patent, asymptomatic, and saline locked at this time. Patient has no labs ordered for this morning. Will ask Dr Beltrán if he would like to order labs for this patient when he rounds on the patine this morning. Patient bed in low position with bed alarm on and call light in reach at this time. Addendum: 02/26/19 at 0804 by Gisselle Perez RN Patient repositioned and oral care performed at this time.
--- NOTE | 2019-02-26 08:04 | General Progress Note ---
Assessment/Plan Problem List: (1) Seizure ICD Codes: R56.9 - Unspecified convulsions SNOMED: 63965080 (2) Anemia ICD Codes: D64.9 - Anemia, unspecified SNOMED: 219768793 Qualifiers: Qualified Codes: D64.9 - Anemia, unspecified (3) Sepsis ICD Codes: A41.9 - Sepsis, unspecified organism SNOMED: 33703839, 498501184 Qualifiers: Qualified Codes: A41.9 - Sepsis, unspecified organism (4) Respiratory failure with hypoxia ICD Codes: J96.91 - Respiratory failure, unspecified with hypoxia SNOMED: 88059119706770434 Qualifiers: Qualified Codes: J96.21 - Acute and chronic respiratory failure with hypoxia (5) HCAP (healthcare-associated pneumonia) ICD Codes: J18.9 - Pneumonia, unspecified organism SNOMED: 079863614, 214805800 (6) Sacral decubitus ulcer ICD Codes: L89.159 - Pressure ulcer of sacral region, unspecified stage SNOMED: 026883598 (7) HTN (hypertension) ICD Codes: I10 - Essential (primary) hypertension SNOMED: 56974226 (8) Chronic vegetative state ICD Codes: R40.3 - Persistent vegetative state SNOMED: 44139649 (9) Chronic respiratory failure ICD Codes: J96.10 - Chronic respiratory failure, unspecified whether with hypoxia or hypercapnia SNOMED: 07031979 (10) Limited mobility ICD Codes: Z74.09 - Other reduced mobility SNOMED: 1433511 Status: stable, progressing Assessment/Plan: vent prn as needed resp rx suctioning as needed gt feeds monitor for vomiting bowel regime monitor residuals sx rx repeat sputum culture transfuse prn dc planning Subjective ROS Limited/Unobtainable: Yes Constitutional: Reports: malaise, weakness HEENT: Reports: no symptoms Cardiovascular: Reports: no symptoms Respiratory: Reports: no symptoms Gastrointestinal/Abdominal: Reports: no symptoms, difficulty swallowing Genitourinary: Reports: no symptoms Neurologic/Psychiatric: Reports: pre-existing deficit, seizure Endocrine: Reports: no symptoms Hematologic/Lymphatic: Reports: no symptoms Allergies: Coded Allergies: CODEINE (Verified Allergy, Unknown, HIVES, 09/15/09) All Systems: reviewed and negative except above Subjective no events. remains on the vent. intermittently congested. no fever or chills. overall the same Objective Last 24 Hour Vital Signs Date Time Temp Pulse Resp B/P (MAP) Pulse Ox O2 Delivery O2 Flow Rate FiO2 02/26/19 06:00 71 24 150/63 (92) 99 71 02/26/19 05:00 71 21 142/67 (92) 100 71 02/26/19 04:00 98.6 64 21 114/54 (74) 99 64 02/26/19 04:00 30 02/26/19 04:00 T-piece 8.0 02/26/19 04:00 71 02/26/19 03:00 74 29 116/47 (70) 97 74 02/26/19 02:00 68 23 106/54 (71) 98 68 02/26/19 01:05 100 T-Piece 8.0 30 02/26/19 01:00 71 24 151/60 (90) 99 67 02/26/19 00:00 68 02/26/19 00:00 98.4 67 21 148/65 (92) 100 67 02/26/19 00:00 30 02/26/19 00:00 T-piece 8.0 02/25/19 23:00 66 25 156/72 (100) 100 66 02/25/19 22:29 64 22 100 T-Piece 8.0 30 61 21 100 02/25/19 22:00 78 18 158/69 (98) 100 76 02/25/19 21:00 67 23 153/64 (93) 100 02/25/19 20:58 65 22 155/64 (94) 100 02/25/19 20:53 71 170/63 02/25/19 20:00 T-piece 8.0 02/25/19 20:00 65 02/25/19 20:00 97.8 65 22 170/63 (98) 100 02/25/19 20:00 30 02/25/19 19:26 100 T-Piece 8.0 30 02/25/19 19:26 77 24 100 T-Piece 8.0 30 02/25/19 19:00 66 25 149/57 (87) 100 02/25/19 18:00 69 29 136/62 (86) 100 02/25/19 17:00 67 22 117/55 (75) 100 02/25/19 16:00 30 02/25/19 16:00 T-piece 8.0 02/25/19 16:00 98.3 68 22 141/59 (86) 100 02/25/19 15:24 70 02/25/19 15:00 75 22 156/69 (98) 100 02/25/19 14:00 73 22 139/57 (84) 99 02/25/19 13:11 99 T-Piece 8.0 30 02/25/19 13:00 65 21 146/58 (87) 100 02/25/19 12:00 98.3 69 22 136/72 (93) 100 02/25/19 12:00 30 02/25/19 12:00 T-piece 8.0 02/25/19 11:44 71 02/25/19 11:00 68 20 152/65 (94) 100 02/25/19 10:00 67 20 134/58 (83) 100 02/25/19 09:00 71 24 137/70 (92) 98 02/25/19 08:47 77 122/55 02/25/19 08:43 85 22 99 T-Piece 8.0 30 78 20 100 Intake and Output 02/25/19 02/26/19 19:00 07:00 Intake Total 480 ml 385 ml Output Total 325 ml 435 ml Balance 155 ml -50 ml Tube Feeding 420 ml 385 ml Other 60 ml Output Urine Total 325 ml 435 ml # Bowel Movements 2 3 Height (Feet): 5 Height (Inches): 5.00 Weight (Pounds): 180 Objective General Appearance: WD/WN, confused. on trach collar Neck: supple Cardiovascular: normal rate, regular rhythm Respiratory/Chest: chest wall non-tender, rhonchi - bilaterally(minimal) Abdomen: normal bowel sounds, non tender, soft, no organomegaly Edema: no edema noted Arm (L), no edema noted Arm (R), no edema noted Leg (L), no edema noted Leg (R), no edema noted Pedal (L), no edema noted Pedal (R), no edema noted Generalized Neurologic: disoriented, unresponsive, aphasia Irvin Beltrán MD Feb 26, 2019 08:04
--- NOTE | 2019-02-26 08:04 | NUR ---
NURSE NOTES: Asked Dr Beltrán if labs should be drawn when he rounded on the patient. He reported that no labs need be drawn.
--- NOTE | 2019-02-26 09:19 | Infectious Diseases Prog Note ---
Assessment/Plan Assessment/Plan A 1. Providencia & Klebsiella pneumonia 2. respiratory failure 3. hypertension 4. CVA 5. dementia 6. sacral decubitus ulcer 7. rectal VRE colonization 8. Anemia 9. Proteus UTI 10. Acute renal failure 11. Leukocytosis P 1. Discontinue Amikacin inhaler 2. Frequent suctioning 3. Remove PICC line before discharge Subjective ROS Limited/Unobtainable: Yes Constitutional: Denies: fever Allergies: Coded Allergies: CODEINE (Verified Allergy, Unknown, HIVES, 09/15/09) Objective Vital Signs Last 24 Hour Vital Signs Date Time Temp Pulse Resp B/P (MAP) Pulse Ox O2 Delivery O2 Flow Rate FiO2 02/26/19 09:00 66 22 133/56 (81) 99 02/26/19 08:00 T-piece 8.0 02/26/19 08:00 75 23 144/76 (98) 99 02/26/19 08:00 8.0 30 02/26/19 07:02 99 T-Piece 8.0 30 02/26/19 07:02 87 22 99 T-Piece 8.0 30 02/26/19 07:00 67 21 148/58 (88) 99 02/26/19 06:00 71 24 150/63 (92) 99 71 02/26/19 05:00 71 21 142/67 (92) 100 71 02/26/19 04:00 98.6 64 21 114/54 (74) 99 64 02/26/19 04:00 30 02/26/19 04:00 T-piece 8.0 02/26/19 04:00 71 02/26/19 03:00 74 29 116/47 (70) 97 74 02/26/19 02:00 68 23 106/54 (71) 98 68 02/26/19 01:05 100 T-Piece 8.0 30 02/26/19 01:00 71 24 151/60 (90) 99 67 02/26/19 00:00 68 02/26/19 00:00 98.4 67 21 148/65 (92) 100 67 02/26/19 00:00 30 02/26/19 00:00 T-piece 8.0 02/25/19 23:00 66 25 156/72 (100) 100 66 02/25/19 22:29 64 22 100 T-Piece 8.0 30 61 21 100 02/25/19 22:00 78 18 158/69 (98) 100 76 02/25/19 21:00 67 23 153/64 (93) 100 02/25/19 20:58 65 22 155/64 (94) 100 02/25/19 20:53 71 170/63 02/25/19 20:00 T-piece 8.0 02/25/19 20:00 65 02/25/19 20:00 97.8 65 22 170/63 (98) 100 02/25/19 20:00 30 02/25/19 19:26 100 T-Piece 8.0 30 02/25/19 19:26 77 24 100 T-Piece 8.0 30 02/25/19 19:00 66 25 149/57 (87) 100 02/25/19 18:00 69 29 136/62 (86) 100 02/25/19 17:00 67 22 117/55 (75) 100 02/25/19 16:00 30 02/25/19 16:00 T-piece 8.0 02/25/19 16:00 98.3 68 22 141/59 (86) 100 02/25/19 15:24 70 02/25/19 15:00 75 22 156/69 (98) 100 02/25/19 14:00 73 22 139/57 (84) 99 02/25/19 13:11 99 T-Piece 8.0 30 02/25/19 13:00 65 21 146/58 (87) 100 02/25/19 12:00 98.3 69 22 136/72 (93) 100 02/25/19 12:00 30 02/25/19 12:00 T-piece 8.0 02/25/19 11:44 71 02/25/19 11:00 68 20 152/65 (94) 100 02/25/19 10:00 67 20 134/58 (83) 100 Height (Feet): 5 Height (Inches): 5.00 Weight (Pounds): 180 General Appearance: no acute distress HEENT: mucous membranes moist, status post trach Respiratory/Chest: lungs clear, other - on T bar Cardiovascular: normal rate Abdomen: soft, non tender, other - GT feeding Extremities: no edema Neurologic/Psychiatric: unresponsiveness, aphasia Microbiology Date/Time Source Procedure Growth Status 02/24/19 10:35 Sputum Gram Stain - Final Resulted 02/24/19 10:35 Sputum Culture - Preliminary Gram Negative Bacillus 1 Gram Negative Bacillus 2 Resulted Current Medications Medications (Trade) Dose Ordered Sig/Maicol Route PRN Reason Start Time Stop Time Status Last Admin Dose Admin Acetaminophen (Tylenol) 650 mg Q4H PRN GT Mild Pain/Temp > 100.5 02/18/19 05:44 03/05/19 05:43 02/23/19 21:33 Albuterol/ Ipratropium (Albuterol/ Ipratropium) 3 ml Q4H PRN HHN Shortness of Breath 02/22/19 07:07 02/27/19 07:06 02/23/19 23:37 Amikacin Sulfate (Amikin) 500 mg Q12HR@ INH 02/20/19 22:00 02/27/19 21:59 02/25/19 22:28 Atropine Sulfate (Atropine Opth Adriana) 1 drop TID SL 02/18/19 09:00 03/12/19 09:29 02/25/19 17:44 Chlorhexidine Gluconate (Cesilia-Hex 2%) 1 applic DAILY@1999 TOPIC 02/18/19 20:00 03/12/19 19:59 02/25/19 20:52 Heparin Sodium (Porcine) (Heparin 5000 units/ml) 5,000 units EVERY 12 HOURS SUBQ 02/18/19 09:00 03/16/19 23:14 02/25/19 20:58 Hydralazine HCl (Apresoline) 25 mg Q4H PRN GT SBP above 160 02/18/19 05:46 03/09/19 05:45 02/25/19 02:45 Levetiracetam (Keppra) 750 mg Q12HR GT 02/18/19 09:00 03/16/19 23:29 02/26/19 05:30 Metoclopramide HCl (Reglan) 10 mg Q6H PRN IVP Nausea & Vomiting 02/18/19 05:46 03/09/19 05:45 Metoprolol Tartrate (Lopressor) 25 mg Q12HR GT 02/18/19 09:00 03/16/19 23:29 02/25/19 20:53 Pantoprazole (Protonix) 40 mg Q12HR IVP 02/18/19 09:00 03/16/19 23:29 02/25/19 20:53 Chauncey Liriano MD Feb 26, 2019 09:18
[2019-02-26] MEDS: Amikacin for Inhalation 2ML INH SCH (09:20)
[2019-02-26] MEDS: Pantoprazole Inj IVP SCH ×2 (09:31→20:18)
[2019-02-26] MEDS: Heparin 5000 units/ml inj SUBQ SCH ×2 (09:39→20:19)
--- NOTE | 2019-02-26 10:32 | Nephrology Progress Note ---
Assessment/Plan Problem List: (1) Acute renal failure (ARF) Assessment: Cr stable (2) Chronic respiratory failure (3) Anemia (4) Sepsis Assessment Acute renal failure Respiratory failure - Trach Low Mag- Low k , Low Na Anemia UTI / Sepsis Proteinuria / HypoAlbuminemia high Trigs Sz decubs bed bound DNR Plan K and Mag and Phos supplement as needed Hydrate Urine studies avoid Nephrotoxics mag K Phos supplements as needed monitor renal parameters Subjective ROS Limited/Unobtainable: No Objective Objective Last 24 Hour Vital Signs Date Time Temp Pulse Resp B/P (MAP) Pulse Ox O2 Delivery O2 Flow Rate FiO2 02/26/19 09:30 70 133/56 02/26/19 09:19 69 21 98 T-Piece 8.0 30 72 22 97 02/26/19 09:00 66 22 133/56 (81) 99 02/26/19 08:00 98.3 75 23 144/76 (98) 99 02/26/19 08:00 T-piece 8.0 02/26/19 08:00 75 23 144/76 (98) 99 02/26/19 08:00 8.0 30 02/26/19 07:02 99 T-Piece 8.0 30 02/26/19 07:02 87 22 99 T-Piece 8.0 30 02/26/19 07:00 67 21 148/58 (88) 99 02/26/19 06:00 71 24 150/63 (92) 99 71 02/26/19 05:00 71 21 142/67 (92) 100 71 02/26/19 04:00 98.6 64 21 114/54 (74) 99 64 02/26/19 04:00 30 02/26/19 04:00 T-piece 8.0 02/26/19 04:00 71 02/26/19 03:00 74 29 116/47 (70) 97 74 02/26/19 02:00 68 23 106/54 (71) 98 68 02/26/19 01:05 100 T-Piece 8.0 30 02/26/19 01:00 71 24 151/60 (90) 99 67 02/26/19 00:00 68 02/26/19 00:00 98.4 67 21 148/65 (92) 100 67 02/26/19 00:00 30 02/26/19 00:00 T-piece 8.0 02/25/19 23:00 66 25 156/72 (100) 100 66 02/25/19 22:29 64 22 100 T-Piece 8.0 30 61 21 100 02/25/19 22:00 78 18 158/69 (98) 100 76 02/25/19 21:00 67 23 153/64 (93) 100 02/25/19 20:58 65 22 155/64 (94) 100 02/25/19 20:53 71 170/63 02/25/19 20:00 T-piece 8.0 02/25/19 20:00 65 02/25/19 20:00 97.8 65 22 170/63 (98) 100 02/25/19 20:00 30 02/25/19 19:26 100 T-Piece 8.0 30 02/25/19 19:26 77 24 100 T-Piece 8.0 30 02/25/19 19:00 66 25 149/57 (87) 100 02/25/19 18:00 69 29 136/62 (86) 100 02/25/19 17:00 67 22 117/55 (75) 100 02/25/19 16:00 30 02/25/19 16:00 T-piece 8.0 02/25/19 16:00 98.3 68 22 141/59 (86) 100 02/25/19 15:24 70 02/25/19 15:00 75 22 156/69 (98) 100 02/25/19 14:00 73 22 139/57 (84) 99 02/25/19 13:11 99 T-Piece 8.0 30 02/25/19 13:00 65 21 146/58 (87) 100 02/25/19 12:00 98.3 69 22 136/72 (93) 100 02/25/19 12:00 30 02/25/19 12:00 T-piece 8.0 02/25/19 11:44 71 02/25/19 11:00 68 20 152/65 (94) 100 Intake and Output 02/25/19 02/26/19 19:00 07:00 Intake Total 480 ml 385 ml Output Total 325 ml 435 ml Balance 155 ml -50 ml Tube Feeding 420 ml 385 ml Other 60 ml Output Urine Total 325 ml 435 ml # Bowel Movements 2 3 Height (Feet): 5 Height (Inches): 5.00 Weight (Pounds): 180 General Appearance: no apparent distress EENT: other - trach Cardiovascular: normal rate Respiratory/Chest: decreased breath sounds Abdomen: soft Objective no change Eric Cortez MD Feb 26, 2019 10:32
--- NOTE | 2019-02-26 10:43 | Pulmonology Progress Note ---
Assessment/Plan Assessment/Plan Impression: Sepsis syndrome Pneumonia VDRF, Trach, G tube, Hypertension, Cardiac disease, Dementia, Previous CVA, Seizure disorder, Respiratory failure with hypoxia Anemia Sacral ulcer renal cyst pulmonary congestion Plan respiratory care to continue as is atropine neb therapy SNF meds as is off vent as able and has been off for several day Oxygen as needed Monitor labs daily changes noted and reviewed feeds as tolerated monitor albumin levels and provide protein and nutrition elevate head aspiration precautions Patient is a DNR. No CPR. ICU care reviewed medications/laboratory data/nursing notes/ICU care reviewed in detail note reviewed and edited care discussed with RN and RT ICU time spent 38 minutes Subjective ROS Limited/Unobtainable: Yes Allergies: Coded Allergies: CODEINE (Verified Allergy, Unknown, HIVES, 09/15/09) Subjective respiratory care noted congestion- reviewed ICU care reviewed supportive care noted and reviewed RT care reviewed overnight care noted findings reviewed and discussed in detail with nursing and RT seen earlier this am Objective Last 24 Hour Vital Signs Date Time Temp Pulse Resp B/P (MAP) Pulse Ox O2 Delivery O2 Flow Rate FiO2 02/26/19 09:30 70 133/56 02/26/19 09:19 69 21 98 T-Piece 8.0 30 72 22 97 02/26/19 09:00 66 22 133/56 (81) 99 02/26/19 08:00 98.3 75 23 144/76 (98) 99 02/26/19 08:00 T-piece 8.0 02/26/19 08:00 75 23 144/76 (98) 99 02/26/19 08:00 8.0 30 02/26/19 07:02 99 T-Piece 8.0 30 02/26/19 07:02 87 22 99 T-Piece 8.0 30 02/26/19 07:00 67 21 148/58 (88) 99 02/26/19 06:00 71 24 150/63 (92) 99 71 02/26/19 05:00 71 21 142/67 (92) 100 71 02/26/19 04:00 98.6 64 21 114/54 (74) 99 64 02/26/19 04:00 30 02/26/19 04:00 T-piece 8.0 02/26/19 04:00 71 02/26/19 03:00 74 29 116/47 (70) 97 74 02/26/19 02:00 68 23 106/54 (71) 98 68 02/26/19 01:05 100 T-Piece 8.0 30 02/26/19 01:00 71 24 151/60 (90) 99 67 02/26/19 00:00 68 02/26/19 00:00 98.4 67 21 148/65 (92) 100 67 02/26/19 00:00 30 02/26/19 00:00 T-piece 8.0 02/25/19 23:00 66 25 156/72 (100) 100 66 02/25/19 22:29 64 22 100 T-Piece 8.0 30 61 21 100 02/25/19 22:00 78 18 158/69 (98) 100 76 02/25/19 21:00 67 23 153/64 (93) 100 02/25/19 20:58 65 22 155/64 (94) 100 02/25/19 20:53 71 170/63 02/25/19 20:00 T-piece 8.0 02/25/19 20:00 65 02/25/19 20:00 97.8 65 22 170/63 (98) 100 02/25/19 20:00 30 02/25/19 19:26 100 T-Piece 8.0 30 02/25/19 19:26 77 24 100 T-Piece 8.0 30 02/25/19 19:00 66 25 149/57 (87) 100 02/25/19 18:00 69 29 136/62 (86) 100 02/25/19 17:00 67 22 117/55 (75) 100 02/25/19 16:00 30 02/25/19 16:00 T-piece 8.0 02/25/19 16:00 98.3 68 22 141/59 (86) 100 02/25/19 15:24 70 02/25/19 15:00 75 22 156/69 (98) 100 02/25/19 14:00 73 22 139/57 (84) 99 02/25/19 13:11 99 T-Piece 8.0 30 02/25/19 13:00 65 21 146/58 (87) 100 02/25/19 12:00 98.3 69 22 136/72 (93) 100 02/25/19 12:00 30 02/25/19 12:00 T-piece 8.0 02/25/19 11:44 71 02/25/19 11:00 68 20 152/65 (94) 100 Intake and Output 02/25/19 02/26/19 19:00 07:00 Intake Total 480 ml 385 ml Output Total 325 ml 435 ml Balance 155 ml -50 ml Tube Feeding 420 ml 385 ml Other 60 ml Output Urine Total 325 ml 435 ml # Bowel Movements 2 3 Objective WDWN NAD contracted off vent reduced breath sounds bilaterally with some rhonchi overall; no wheeze [id number] without MRG NABS nontender no HSM no CC minimal nonfocal nonverbal trach and gt reviewed and edited Microbiology Date/Time Source Procedure Growth Status 02/24/19 10:35 Sputum Gram Stain - Final Resulted 02/24/19 10:35 Sputum Culture - Preliminary Gram Negative Bacillus 1 Gram Negative Bacillus 2 Resulted Current Medications Medications (Trade) Dose Ordered Sig/Maicol Route PRN Reason Start Time Stop Time Status Last Admin Dose Admin Acetaminophen (Tylenol) 650 mg Q4H PRN GT Mild Pain/Temp > 100.5 02/18/19 05:44 03/05/19 05:43 02/23/19 21:33 Albuterol/ Ipratropium (Albuterol/ Ipratropium) 3 ml Q4H PRN HHN Shortness of Breath 02/22/19 07:07 02/27/19 07:06 02/23/19 23:37 Atropine Sulfate (Atropine Opth Adriana) 1 drop TID SL 02/18/19 09:00 03/12/19 09:29 02/26/19 09:29 Chlorhexidine Gluconate (Cesilia-Hex 2%) 1 applic DAILY@1999 TOPIC 02/18/19 20:00 03/12/19 19:59 02/25/19 20:52 Heparin Sodium (Porcine) (Heparin 5000 units/ml) 5,000 units EVERY 12 HOURS SUBQ 02/18/19 09:00 03/16/19 23:14 02/26/19 09:39 Hydralazine HCl (Apresoline) 25 mg Q4H PRN GT SBP above 160 02/18/19 05:46 03/09/19 05:45 02/25/19 02:45 Levetiracetam (Keppra) 750 mg Q12HR GT 02/18/19 09:00 03/16/19 23:29 02/26/19 09:29 Metoclopramide HCl (Reglan) 10 mg Q6H PRN IVP Nausea & Vomiting 02/18/19 05:46 03/09/19 05:45 Metoprolol Tartrate (Lopressor) 25 mg Q12HR GT 02/18/19 09:00 03/16/19 23:29 02/26/19 09:30 Pantoprazole (Protonix) 40 mg Q12HR IVP 02/18/19 09:00 03/16/19 23:29 02/26/19 09:31 Amaury Chan MD Feb 26, 2019 10:43
--- NOTE | 2019-02-26 11:04 | NUR ---
NURSE NOTES: Called [facility] and inquired if there is a bed available for this patient at this time. Spoke with admissions office and was informed that there is still no bed available at this time.
--- NOTE | 2019-02-26 12:30 | NUR ---
NURSE NOTES: Patient's eyes open at this time but she does not track or make eye contact. Patient remains on trach to T-piece with 30% FiO2, RR 16, and FiO2 98%. Patient coughs frequently but when tracheal suctioned, very small amount of thin, white secretions noted. Will continue to monitor and suction as needed. Gastrostomy tube remains patent, asymptomatic, and running Glucerna 1.5 at 35mL/hr at this time with no residual noted. Purewick remains in place for incontinence. Right upper arm PICC remains patent, asymptomatic, and saline locked at this time. Patient bed in low position with bed alarm on and call light in reach at this time. Patient repositioned, bed bath performed, and oral care performed at this time.
--- NOTE | 2019-02-26 13:14 | General Progress Note ---
Assessment/Plan Status: stable, progressing Assessment/Plan: Assessment - N/V, periodic - suspect due to gastroparesis - will hold off on G to J conversion per daughter request - Elevated Alk phos / LFT - CT negative - abd U/S negative - check hepatitis serologies - negative - Anemia with OB (-) stools - Resp failure, s/p Trach - dysphagia, s/p PEG - OBS - poor Px Recommendations - laxative PRN - continue TF - aspiration precautions - elevate HOB - PPI Subjective Allergies: Coded Allergies: CODEINE (Verified Allergy, Unknown, HIVES, 09/15/09) Subjective Seen in ICU d/w RN tolerating TF no vomiting on T-piece for breathing awaiting bed at outside facility Objective Last 24 Hour Vital Signs Date Time Temp Pulse Resp B/P (MAP) Pulse Ox O2 Delivery O2 Flow Rate FiO2 02/26/19 13:00 72 159/70 (99) 99 02/26/19 12:00 74 02/26/19 12:00 8.0 30 02/26/19 12:00 T-piece 8.0 02/26/19 12:00 98.2 66 20 146/53 (84) 100 02/26/19 11:00 69 21 105/51 (69) 96 02/26/19 10:00 71 19 156/66 (96) 99 02/26/19 09:30 70 133/56 02/26/19 09:19 69 21 98 T-Piece 8.0 30 72 22 97 02/26/19 09:00 66 22 133/56 (81) 99 02/26/19 08:00 98.3 75 23 144/76 (98) 99 02/26/19 08:00 T-piece 8.0 02/26/19 08:00 75 23 144/76 (98) 99 02/26/19 08:00 8.0 30 02/26/19 08:00 71 02/26/19 07:02 99 T-Piece 8.0 30 02/26/19 07:02 87 22 99 T-Piece 8.0 30 02/26/19 07:00 67 21 148/58 (88) 99 02/26/19 06:00 71 24 150/63 (92) 99 71 02/26/19 05:00 71 21 142/67 (92) 100 71 11/28/19 04:00 98.6 64 21 114/54 (74) 99 64 02/26/19 04:00 30 02/26/19 04:00 T-piece 8.0 02/26/19 04:00 71 02/26/19 03:00 74 29 116/47 (70) 97 74 02/26/19 02:00 68 23 106/54 (71) 98 68 02/26/19 01:05 100 T-Piece 8.0 30 02/26/19 01:00 71 24 151/60 (90) 99 67 02/26/19 00:00 68 02/26/19 00:00 98.4 67 21 148/65 (92) 100 67 02/26/19 00:00 30 02/26/19 00:00 T-piece 8.0 02/25/19 23:00 66 25 156/72 (100) 100 66 02/25/19 22:29 64 22 100 T-Piece 8.0 30 61 21 100 02/25/19 22:00 78 18 158/69 (98) 100 76 02/25/19 21:00 67 23 153/64 (93) 100 02/25/19 20:58 65 22 155/64 (94) 100 02/25/19 20:53 71 170/63 02/25/19 20:00 T-piece 8.0 02/25/19 20:00 65 02/25/19 20:00 97.8 65 22 170/63 (98) 100 02/25/19 20:00 30 02/25/19 19:26 100 T-Piece 8.0 30 02/25/19 19:26 77 24 100 T-Piece 8.0 30 02/25/19 19:00 66 25 149/57 (87) 100 02/25/19 18:00 69 29 136/62 (86) 100 02/25/19 17:00 67 22 117/55 (75) 100 02/25/19 16:00 30 02/25/19 16:00 T-piece 8.0 02/25/19 16:00 98.3 68 22 141/59 (86) 100 02/25/19 15:24 70 02/25/19 15:00 75 22 156/69 (98) 100 02/25/19 14:00 73 22 139/57 (84) 99 Intake and Output 02/25/19 02/26/19 19:00 07:00 Intake Total 480 ml 420 ml Output Total 325 ml 435 ml Balance 155 ml -15 ml Tube Feeding 420 ml 420 ml Other 60 ml Output Urine Total 325 ml 435 ml # Bowel Movements 2 3 Height (Feet): 5 Height (Inches): 5.00 Weight (Pounds): 180 Objective Debilitated AA woman NCAT (+) trach coarse ronchi RR obese abd, (+) GT no edema Celio Vaughan MD Feb 26, 2019 13:14
--- NOTE | 2019-02-26 13:19 | Surgery Progress Note ---
Surgery Progress Note Subjective Symptoms: other Objective Last 24 Hour Vital Signs Date Time Temp Pulse Resp B/P (MAP) Pulse Ox O2 Delivery O2 Flow Rate FiO2 02/26/19 13:00 72 159/70 (99) 99 02/26/19 12:00 74 02/26/19 12:00 8.0 30 02/26/19 12:00 T-piece 8.0 02/26/19 12:00 98.2 66 20 146/53 (84) 100 02/26/19 11:00 69 21 105/51 (69) 96 02/26/19 10:00 71 19 156/66 (96) 99 02/26/19 09:30 70 133/56 02/26/19 09:19 69 21 98 T-Piece 8.0 30 72 22 97 02/26/19 09:00 66 22 133/56 (81) 99 02/26/19 08:00 98.3 75 23 144/76 (98) 99 02/26/19 08:00 T-piece 8.0 02/26/19 08:00 75 23 144/76 (98) 99 02/26/19 08:00 8.0 30 02/26/19 08:00 71 02/26/19 07:02 99 T-Piece 8.0 30 02/26/19 07:02 87 22 99 T-Piece 8.0 30 02/26/19 07:00 67 21 148/58 (88) 99 02/26/19 06:00 71 24 150/63 (92) 99 71 02/26/19 05:00 71 21 142/67 (92) 100 71 02/26/19 04:00 98.6 64 21 114/54 (74) 99 64 02/26/19 04:00 30 02/26/19 04:00 T-piece 8.0 02/26/19 04:00 71 02/26/19 03:00 74 29 116/47 (70) 97 74 02/26/19 02:00 68 23 106/54 (71) 98 68 02/26/19 01:05 100 T-Piece 8.0 30 02/26/19 01:00 71 24 151/60 (90) 99 67 02/26/19 00:00 68 02/26/19 00:00 98.4 67 21 148/65 (92) 100 67 02/26/19 00:00 30 11/28/19 00:00 T-piece 8.0 02/25/19 23:00 66 25 156/72 (100) 100 66 02/25/19 22:29 64 22 100 T-Piece 8.0 30 61 21 100 02/25/19 22:00 78 18 158/69 (98) 100 76 02/25/19 21:00 67 23 153/64 (93) 100 02/25/19 20:58 65 22 155/64 (94) 100 02/25/19 20:53 71 170/63 02/25/19 20:00 T-piece 8.0 02/25/19 20:00 65 02/25/19 20:00 97.8 65 22 170/63 (98) 100 02/25/19 20:00 30 02/25/19 19:26 100 T-Piece 8.0 30 02/25/19 19:26 77 24 100 T-Piece 8.0 30 02/25/19 19:00 66 25 149/57 (87) 100 02/25/19 18:00 69 29 136/62 (86) 100 02/25/19 17:00 67 22 117/55 (75) 100 02/25/19 16:00 30 02/25/19 16:00 T-piece 8.0 02/25/19 16:00 98.3 68 22 141/59 (86) 100 02/25/19 15:24 70 02/25/19 15:00 75 22 156/69 (98) 100 02/25/19 14:00 73 22 139/57 (84) 99 I&O Intake and Output 02/25/19 02/26/19 19:00 07:00 Intake Total 480 ml 420 ml Output Total 325 ml 435 ml Balance 155 ml -15 ml Tube Feeding 420 ml 420 ml Other 60 ml Output Urine Total 325 ml 435 ml # Bowel Movements 2 3 Dressing: other Wound: other Drains: other Cardiovascular: RSR Respiratory: decreased breath sounds Abdomen: soft, present bowel sounds Extremities: no cyanosis Plan Problems: (1) Sacral decubitus ulcer Assessment & Plan: This is a 83-year-old female with multiple medical committees that is currently admitted for medical care and management and identified to have multiple wounds requiring care. On admission patient noted to have a resolved sacral decubitus ulcer. Has had prior care and is well-healed at this time. Will ensure it does not open up again. Patient has a right ischial decubitus ulcer that is resolved. Scar intact and well formed. Will monitor to ensure it does not open up again. Patient has a left ischial decubitus ulcer that can be identified to be stage IV with palpable bone that has been resolving as noted by the periwound tissue and scar but open area approximately 1 cm x 1.5 cm few millimeters deep to bone identified. Unsure if this is been to be completely healed prior and has since opened or if has been healing at this level. No foul odor no drainage was unsure local wound care until healed Bilateral heels soft without signs of injury Resolving pressure injury L ischium(L)1.8cm x (W)1cm.Scattered biofilm at base of wound. Edges flat and adherent with surrounding hyperpigmentation. No odor or exudate noted. Sacrum is pale pink with surrounding hyperpigmentation. Hyperpigmentation R ischium with small sheared area centrally.No areas of erythema or exudate noted. Both heels are soft but blanchable. Skin Assessed under collar of trach and no evidence of skin breakdown noted. All wound Tx. are effective and continued as ordered. Pt ahs an APM/Belén mattress overlay and is being repositioned per protocols and per tolerance.No new skin concerns noted. Treatment plan: Please apply skin protectant and optifoam to sacral area. Change every 3 days Please apply skin protectant and optifoam to right ischial area. Change every 3 days Please apply Thera honey infused gauze to small opening in the left ischial wound bed followed by skin protectant in the periwound and up to foam. Change daily as needed saturation Apply Xeroform and dressing over left hand blister. Offload pressure from heels with pillow Air soft mattress Turn every 2 hours Nutritional optimization We will monitor follow with recommendations (2) Sepsis Assessment & Plan: IV abx as per ID trend labs improving wounds unlikely etiology likely respiratory imaging noted and okay abnormal lft's stable PICC on Abx in ICU for desaturation CXR with consolidation Evidence of left lower lobe pneumonia, also previously demonstrated Gastrostomy in good position Mild diastasis of the rectus abdominis musculature again demonstrated Retrosacral decubitus changes, better depicted on prior exam which included the pelvis Small hiatal hernia with evidence of trace gastroesophageal reflux (3) Feeding by G-tube Assessment & Plan: DAILY ESTIMATED NEEDS: Needs based on Pulmonary, wounds, bedbound/ 60kg adj 25-28 kcals/kg 7448-6146 total kcals 1.25-2 g protein/kg 75-120 g total protein 25-30 mL/kg 8659-2604 total fluid mLs NUTRITION DIAGNOSIS: * Swallowing difficulty R/T respiratory status as evidenced by pt on T-collar, now back the vent, PEG dep, TF changed to low rate at this time due to episodes of vomiting + residuals. * Increased kcal/prot needs R/T wound healing as evidenced by BL buttocks and sacral wound photos, refer to WC eval. (CURRENT TF:Glucerna 1.5 @35ml) ENTERAL NUTRITION RECOMMENDATIONS: VITAL AF 1.2 @ 55ml/hr x 24 hrs to provide 1320ml, 1584kcal, 99g prot, 1060ml free water - Once medically appropriate to resume TF, rec to initiate elemental and carb control formula of Vital 1.2 for possible improved tolerance - Initiate VITAL 1.2 @ 25ml/hr x 6hrs, advance 10ml q 4-6 hrs as tolerated to goal rate - Flush per MD/ HOB over 30 degrees ADDITIONAL RECOMMENDATIONS: 1) Re-calibrated bedscale wt for accurate CBW 2) Wound healing: Add Cristian 1pkt BID w/ improved Tf tolerace + MVI x1 daily 3) Monitor lytes, replete as needed (low Mg, K) 4) Monitor NPO status, ability to resume TF. -> held on and off due to vomiting since 02/02 5) SSI prn resume tube feeds (4) Chronic vegetative state Assessment & Plan: incontinence of urine and stool. can soil dressings. nurses doing great job with monitoring and changing prn (5) Leukocytosis Walter Madera Feb 26, 2019 13:19
--- NOTE | 2019-02-26 14:00 | NUR ---
NURSE NOTES: Vital signs stable at this time. Patient remains on trach to T-piece with moderate amount tracheal secretions. Patient suctioned frequently. Patient showing sinus rhythm with rate of 68 on the phototypesetting equipment monitor. Patient repositioned at this time. Bed in low position with bed alarm on and call light in reach at this time.
--- NOTE | 2019-02-26 16:00 | NUR ---
NURSE NOTES: Patient's mentation remains the same. Patient remains on trach to T-piece with 30% FiO2, RR 16, and FiO2 98%. Patient has copious tracheal secretions that are white and thin. Frequent suctioning provided. Will continue to monitor and suction as needed. Gastrostomy tube remains patent, asymptomatic, and running Glucerna 1.5 at 35mL/hr at this time with no residual noted. Purewick remains in place for incontinence. Right upper arm PICC remains patent, asymptomatic, and saline locked at this time. Patient bed in low position with bed alarm on and call light in reach at this time. Patient repositioned, bed bath performed, and oral care performed at this time.
--- NOTE | 2019-02-26 18:00 | NUR ---
NURSE NOTES: Patient tracheal suctioned at this time. No sign of acute distress. Bed in low position. Vital signs stable. Patient repositioned. Will continue to monitor.
--- NOTE | 2019-02-26 19:24 | NUR ---
HAND-OFF: Report given to JEANNINE Kraus. Patient vital signs stable. Endorsed to follow up.
--- NOTE | 2019-02-26 19:25 | NUR ---
NURSE NOTES: Endorsement received from Gisselle Felipe RN. Patient obtunded. With Trache, Shiley 6.0, on oxygen 28% per T piece. GT present, receiving Glucerna 1.5 at 35ml/hr. No residual. Purewick in place. Right upper arm PICC, patent and intact. On P200 mattress. Head of bed elevated. Bed locked and in low position. Call light within reach.
[2019-02-26] MEDS: Dyna-Hex 2% Top Sol 2oz TOPIC SCH (20:16)
--- NOTE | 2019-02-26 21:00 | NUR ---
NURSE NOTES: Patient's daughter at bedside.
--- NOTE | 2019-02-26 23:00 | NUR ---
NURSE NOTES: Secretions suctioned.
[2019-02-27] VITALS (24 sets, daily range): BP systolic 102–162; BP diastolic 53–105
--- NOTE | 2019-02-27 01:00 | NUR ---
NURSE NOTES: Patient asleep. Tolerating feeding.
--- NOTE | 2019-02-27 03:00 | NUR ---
NURSE NOTES: Patient repositioned. No shortness of breath. No signs of pain or discomfort.
--- NOTE | 2019-02-27 05:00 | NUR ---
NURSE NOTES: Bed bth, oral care, change of linens done
--- NOTE | 2019-02-27 07:28 | NUR ---
HAND-OFF: Report given to Gisselle Wilder RN.
--- NOTE | 2019-02-27 07:29 | NUR ---
NURSE NOTES: Received patient from JEANNINE Kraus. Patient sleeping at this time. Patient opens eyes spontaneously but does not make eye contact. Patient does not follow commands and does not track. Patient does not move arms or legs. Arms contracted. Strength 0/5 bilateral arms and legs. Patient has tracheostomy Shiley size 6.0 that is patent, asymptomatic, and on T-piece with 30% FiO2. Patient has copious tracheal secretions with foamy white sputum. Will continue to monitor and tracheal suction as needed. Patient has gastrostomy tube that is patent, asymptomatic, and running glucerna 1.5 at 35mL/hr at this time with no residual noted. Bilateral lower extremities contracted. Partial thickness pressure injury noted on sacral and bilateral hip healed pressure wounds. Patient on low air loss mattress for skin protection. Will turn every two hours and as needed. Patient has a purewick in place for incontinence. Patient has right upper arm PICC that is patent, asymptomatic, and saline locked at this time. Patient has no labs ordered for this morning. Will ask Dr Meredith if he would like to order labs for this patient when he rounds on the patine this morning. Patient bed in low position with bed alarm on and call light in reach at this time. Addendum: 02/27/19 at 1728 by Gisselle Perez RN Spoke with Dr meredith regarding no labs this morning. He reported that no labs need be drawn this morning.
--- NOTE | 2019-02-27 09:00 | NUR ---
NURSE NOTES: Received call from lab regarding STAT lab draw. Notified warehouse laborer that I would draw lab STAT but was not able to bring the labs down at this time.
--- NOTE | 2019-02-27 09:13 | NUR ---
NURSE NOTES: Called [facility] this morning to follow up on results of sputum cx per Dr Beltrán. Results are currently still pending since 02/24/19. Awaiting finalized result to determine LTAC placement for patient. Will follow up again to confirm final result.
[2019-02-27] MEDS: levETIRAcetam 500mg/5ml Liquid GT SCH ×2 (09:29→21:02)
[2019-02-27] MEDS: Pantoprazole Inj IVP SCH ×2 (09:29→21:00)
[2019-02-27] MEDS: Heparin 5000 units/ml inj SUBQ SCH ×2 (09:35→21:00)
--- NOTE | 2019-02-27 09:47 | General Progress Note ---
Assessment/Plan Problem List: (1) Seizure ICD Codes: R56.9 - Unspecified convulsions SNOMED: 24794497 (2) Anemia ICD Codes: D64.9 - Anemia, unspecified SNOMED: 371852623 Qualifiers: Qualified Codes: D64.9 - Anemia, unspecified (3) Sepsis ICD Codes: A41.9 - Sepsis, unspecified organism SNOMED: 03295029, 570448526 Qualifiers: Qualified Codes: A41.9 - Sepsis, unspecified organism (4) Respiratory failure with hypoxia ICD Codes: J96.91 - Respiratory failure, unspecified with hypoxia SNOMED: 64085597264441002 Qualifiers: Qualified Codes: J96.21 - Acute and chronic respiratory failure with hypoxia (5) HCAP (healthcare-associated pneumonia) ICD Codes: J18.9 - Pneumonia, unspecified organism SNOMED: 251224429, 748963163 (6) Sacral decubitus ulcer ICD Codes: L89.159 - Pressure ulcer of sacral region, unspecified stage SNOMED: 391367870 (7) HTN (hypertension) ICD Codes: I10 - Essential (primary) hypertension SNOMED: 52822897 (8) Chronic vegetative state ICD Codes: R40.3 - Persistent vegetative state SNOMED: 06327423 (9) Chronic respiratory failure ICD Codes: J96.10 - Chronic respiratory failure, unspecified whether with hypoxia or hypercapnia SNOMED: 62621206 (10) Limited mobility ICD Codes: Z74.09 - Other reduced mobility SNOMED: 7078132 Status: stable, progressing Assessment/Plan: vent prn as needed resp rx suctioning as needed gt feeds monitor for vomiting bowel regime monitor residuals sx rx repeat sputum culture transfuse prn dc planning Subjective ROS Limited/Unobtainable: No Constitutional: Reports: malaise, weakness HEENT: Reports: no symptoms Cardiovascular: Reports: no symptoms Respiratory: Reports: cough, shortness of breath, sputum Gastrointestinal/Abdominal: Reports: difficulty swallowing Genitourinary: Reports: no symptoms Neurologic/Psychiatric: Reports: pre-existing deficit, seizure Endocrine: Reports: no symptoms Hematologic/Lymphatic: Reports: anemia Allergies: Coded Allergies: CODEINE (Verified Allergy, Unknown, HIVES, 09/15/09) All Systems: reviewed and negative except above Subjective no events. remains on the vent. intermittently congested. no fever or chills. overall the same Objective Last 24 Hour Vital Signs Date Time Temp Pulse Resp B/P (MAP) Pulse Ox O2 Delivery O2 Flow Rate FiO2 02/27/19 09:30 71 127/96 02/27/19 07:10 99 T-Piece 8.0 30 02/27/19 07:10 87 22 99 T-Piece 8.0 30 02/27/19 07:00 78 23 148/67 (94) 99 02/27/19 06:00 78 23 147/62 (90) 98 02/27/19 05:00 71 23 160/72 (101) 100 02/27/19 04:00 98.3 75 21 162/74 (103) 100 02/27/19 04:00 69 02/27/19 04:00 6.0 28 02/27/19 04:00 T-piece 6.0 02/27/19 03:00 84 23 144/68 (93) 97 02/27/19 02:00 71 22 102/55 (71) 97 02/27/19 01:00 71 22 147/61 (89) 100 02/27/19 01:00 99 T-Piece 8.0 30 02/27/19 00:00 T-piece 6.0 02/27/19 00:00 6.0 28 02/27/19 00:00 74 02/27/19 00:00 98.2 67 22 144/62 (89) 100 02/26/19 23:00 66 20 141/62 (88) 100 02/26/19 22:00 62 21 131/55 (80) 100 02/26/19 21:00 68 21 149/67 (94) 100 02/26/19 20:17 68 151/66 02/26/19 20:00 98.5 69 21 151/66 (94) 100 02/26/19 20:00 72 02/26/19 20:00 6.0 28 02/26/19 20:00 T-piece 6.0 02/26/19 19:46 100 T-Piece 8.0 30 02/26/19 19:45 72 23 100 T-Piece 8.0 30 02/26/19 19:00 64 20 158/73 (101) 100 02/26/19 18:00 63 19 158/66 (96) 100 02/26/19 17:00 75 22 148/71 (96) 100 02/26/19 16:00 71 02/26/19 16:00 T-piece 8.0 02/26/19 16:00 98.1 78 20 180/75 (110) 100 02/26/19 16:00 8.0 30 02/26/19 15:00 71 123/98 (106) 99 02/26/19 14:00 80 144/57 (86) 97 02/26/19 13:00 98 T-Piece 8.0 30 02/26/19 13:00 72 159/70 (99) 99 02/26/19 12:00 74 02/26/19 12:00 8.0 30 02/26/19 12:00 T-piece 8.0 02/26/19 12:00 98.2 66 20 146/53 (84) 100 02/26/19 11:00 69 21 105/51 (69) 96 02/26/19 10:00 71 19 156/66 (96) 99 Intake and Output 02/26/19 02/27/19 19:00 07:00 Intake Total 470 ml 445 ml Output Total 80 ml 200 ml Balance 390 ml 245 ml Free Water 50 ml Tube Feeding 420 ml 385 ml Other 60 ml Output Urine Total 80 ml 200 ml # Voids 3 # Bowel Movements 2 1 Height (Feet): 5 Height (Inches): 5.00 Weight (Pounds): 180 Objective General Appearance: WD/WN, confused. on trach collar Neck: supple Cardiovascular: normal rate, regular rhythm Respiratory/Chest: chest wall non-tender, rhonchi - bilaterally(minimal) Abdomen: normal bowel sounds, non tender, soft, no organomegaly Edema: no edema noted Arm (L), no edema noted Arm (R), no edema noted Leg (L), no edema noted Leg (R), no edema noted Pedal (L), no edema noted Pedal (R), no edema noted Generalized Neurologic: disoriented, unresponsive, aphasia Irvin Beltrán MD Feb 27, 2019 09:47
--- NOTE | 2019-02-27 10:00 | NUR ---
NURSE NOTES: STAT morning labs drawn and awaiting transport to lab. RN and charge gang weigher unable to leave the unit at this time. Lab is aware.
--- NOTE | 2019-02-27 10:23 | Infectious Diseases Prog Note ---
"Assessment/Plan Assessment/Plan antibiotics : none A 1. UTI with proteus s/p rx 2. respiratory failure 3. hypertension 4. CVA 5. dementia 6. sacral decubitus ulcer 7. rectal VRE colonization 8. acenitobacter | enterobacter pneumonia 9. renal failure resolved P 1. start meropenem, inhaled amikacin 2. will follow up cultures Subjective ROS Limited/Unobtainable: Yes Allergies: Coded Allergies: CODEINE (Verified Allergy, Unknown, HIVES, 09/15/09) Objective Vital Signs Last 24 Hour Vital Signs Date Time Temp Pulse Resp B/P (MAP) Pulse Ox O2 Delivery O2 Flow Rate FiO2 02/27/19 09:30 71 127/96 02/27/19 07:10 99 T-Piece 8.0 30 02/27/19 07:10 87 22 99 T-Piece 8.0 30 02/27/19 07:00 78 23 148/67 (94) 99 02/27/19 06:00 78 23 147/62 (90) 98 02/27/19 05:00 71 23 160/72 (101) 100 02/27/19 04:00 98.3 75 21 162/74 (103) 100 02/27/19 04:00 69 02/27/19 04:00 6.0 28 02/27/19 04:00 T-piece 6.0 02/27/19 03:00 84 23 144/68 (93) 97 02/27/19 02:00 71 22 102/55 (71) 97 02/27/19 01:00 71 22 147/61 (89) 100 02/27/19 01:00 99 T-Piece 8.0 30 02/27/19 00:00 T-piece 6.0 02/27/19 00:00 6.0 28 02/27/19 00:00 74 02/27/19 00:00 98.2 67 22 144/62 (89) 100 02/26/19 23:00 66 20 141/62 (88) 100 02/26/19 22:00 62 21 131/55 (80) 100 02/26/19 21:00 68 21 149/67 (94) 100 02/26/19 20:17 68 151/66 02/26/19 20:00 98.5 69 21 151/66 (94) 100 02/26/19 20:00 72 02/26/19 20:00 6.0 28 02/26/19 20:00 T-piece 6.0 02/26/19 19:46 100 T-Piece 8.0 30 02/26/19 19:45 72 23 100 T-Piece 8.0 30 02/26/19 19:00 64 20 158/73 (101) 100 02/26/19 18:00 63 19 158/66 (96) 100 02/26/19 17:00 75 22 148/71 (96) 100 02/26/19 16:00 71 02/26/19 16:00 T-piece 8.0 02/26/19 16:00 98.1 78 20 180/75 (110) 100 02/26/19 16:00 8.0 30 02/26/19 15:00 71 123/98 (106) 99 02/26/19 14:00 80 144/57 (86) 97 02/26/19 13:00 98 T-Piece 8.0 30 02/26/19 13:00 72 159/70 (99) 99 02/26/19 12:00 74 02/26/19 12:00 8.0 30 02/26/19 12:00 T-piece 8.0 02/26/19 12:00 98.2 66 20 146/53 (84) 100 02/26/19 11:00 69 21 105/51 (69) 96 Height (Feet): 5 Height (Inches): 5.00 Weight (Pounds): 180 HEENT: status post trach Respiratory/Chest: lungs clear Cardiovascular: normal rate, regular rhythm, no gallop/murmur Abdomen: soft, non tender, other - GT Extremities: no edema Microbiology Date/Time Source Procedure Growth Status 02/24/19 10:35 Sputum Gram Stain - Final Resulted 02/24/19 10:35 Sputum Culture - Preliminary Acinetobacter Baumannii Complx Enterobacter Cloacae Complex Resulted Current Medications Medications (Trade) Dose Ordered Sig/Maicol Route PRN Reason Start Time Stop Time Status Last Admin Dose Admin Acetaminophen (Tylenol) 650 mg Q4H PRN GT Mild Pain/Temp > 100.5 02/18/19 05:44 03/05/19 05:43 02/23/19 21:33 Atropine Sulfate (Atropine Opth Adriana) 1 drop TID SL 02/18/19 09:00 03/12/19 09:29 02/27/19 09:29 Chlorhexidine Gluconate (Cesilia-Hex 2%) 1 applic DAILY@2000 TOPIC 02/18/19 20:00 03/12/19 19:59 02/26/19 20:16 Heparin Sodium (Porcine) (Heparin 5000 units/ml) 5,000 units EVERY 12 HOURS SUBQ 02/18/19 09:00 03/16/19 23:14 02/27/19 09:35 Hydralazine HCl (Apresoline) 25 mg Q4H PRN GT SBP above 160 02/18/19 05:46 03/09/19 05:45 02/25/19 02:45 Levetiracetam (Keppra) 750 mg Q12HR GT 02/18/19 09:00 03/16/19 23:29 02/27/19 09:29 Metoclopramide HCl (Reglan) 10 mg Q6H PRN IVP Nausea & Vomiting 02/18/19 05:46 03/09/19 05:45 Metoprolol Tartrate (Lopressor) 25 mg Q12HR GT 02/18/19 09:00 03/16/19 23:29 02/27/19 09:30 Pantoprazole (Protonix) 40 mg Q12HR IVP 02/18/19 09:00 03/16/19 23:29 02/27/19 09:29 Geovany Yang MD Feb 27, 2019 10:23"
--- NOTE | 2019-02-27 10:31 | NUR ---
DISCHARGE PLANNING CLINICALS FAXED TO [facility] T: [phone] F: [phone] Addendum: 02/27/19 at 1036 by JODI TONY LVN LVN CALLED [facility] AND WAS TOLD...NO ONE IS IN ADMISSIONS TODAY Addendum: 02/27/19 at 1059 by JODI TONY LVN LVN CALLED [facility] AND SPOKE WITH MARIOY STILL NO BEDS AVAILABLE
--- NOTE | 2019-02-27 10:40 | Nephrology Progress Note ---
Assessment/Plan Problem List: (1) Acute renal failure (ARF) Assessment: Cr stable (2) Chronic respiratory failure (3) Anemia (4) Sepsis Assessment Acute renal failure Respiratory failure - Trach Low Mag- Low k , Low Na Anemia UTI / Sepsis Proteinuria / HypoAlbuminemia high Trigs Sz decubs bed bound DNR Plan no labs today K and Mag and Phos supplement as needed Hydrate Urine studies avoid Nephrotoxics mag K Phos supplements as needed monitor renal parameters Subjective ROS Limited/Unobtainable: Yes Objective Objective Last 24 Hour Vital Signs Date Time Temp Pulse Resp B/P (MAP) Pulse Ox O2 Delivery O2 Flow Rate FiO2 02/27/19 09:30 71 127/96 02/27/19 07:10 99 T-Piece 8.0 30 02/27/19 07:10 87 22 99 T-Piece 8.0 30 02/27/19 07:00 78 23 148/67 (94) 99 02/27/19 06:00 78 23 147/62 (90) 98 02/27/19 05:00 71 23 160/72 (101) 100 02/27/19 04:00 98.3 75 21 162/74 (103) 100 02/27/19 04:00 69 02/27/19 04:00 6.0 28 02/27/19 04:00 T-piece 6.0 02/27/19 03:00 84 23 144/68 (93) 97 02/27/19 02:00 71 22 102/55 (71) 97 02/27/19 01:00 71 22 147/61 (89) 100 02/27/19 01:00 99 T-Piece 8.0 30 02/27/19 00:00 T-piece 6.0 02/27/19 00:00 6.0 28 02/27/19 00:00 74 02/27/19 00:00 98.2 67 22 144/62 (89) 100 02/26/19 23:00 66 20 141/62 (88) 100 02/26/19 22:00 62 21 131/55 (80) 100 02/26/19 21:00 68 21 149/67 (94) 100 02/26/19 20:17 68 151/66 02/26/19 20:00 98.5 69 21 151/66 (94) 100 02/26/19 20:00 72 02/26/19 20:00 6.0 28 02/26/19 20:00 T-piece 6.0 02/26/19 19:46 100 T-Piece 8.0 30 02/26/19 19:45 72 23 100 T-Piece 8.0 30 02/26/19 19:00 64 20 158/73 (101) 100 02/26/19 18:00 63 19 158/66 (96) 100 02/26/19 17:00 75 22 148/71 (96) 100 02/26/19 16:00 71 02/26/19 16:00 T-piece 8.0 02/26/19 16:00 98.1 78 20 180/75 (110) 100 02/26/19 16:00 8.0 30 02/26/19 15:00 71 123/98 (106) 99 02/26/19 14:00 80 144/57 (86) 97 02/26/19 13:00 98 T-Piece 8.0 30 02/26/19 13:00 72 159/70 (99) 99 02/26/19 12:00 74 02/26/19 12:00 8.0 30 02/26/19 12:00 T-piece 8.0 02/26/19 12:00 98.2 66 20 146/53 (84) 100 02/26/19 11:00 69 21 105/51 (69) 96 Intake and Output 02/26/19 02/27/19 19:00 07:00 Intake Total 470 ml 445 ml Output Total 80 ml 200 ml Balance 390 ml 245 ml Free Water 50 ml Tube Feeding 420 ml 385 ml Other 60 ml Output Urine Total 80 ml 200 ml # Voids 3 # Bowel Movements 2 1 Height (Feet): 5 Height (Inches): 5.00 Weight (Pounds): 180 General Appearance: no apparent distress EENT: other - trach Cardiovascular: normal rate Respiratory/Chest: decreased breath sounds Abdomen: soft Objective no change Eric Cortez MD Feb 27, 2019 10:40
[2019-02-27] MEDS ORDERED: NS 275ml ONE (10:47)
--- NOTE | 2019-02-27 10:47 | NUR ---
CASE MANAGEMENT:REVIEW 02/27/19 SI: SEPSIS. PNA SACRAL DECUB. CHRONIC RESP FAILURE 98.3 87 22 148/67 99% ON T-PIECE IS: AMIKACIN INH Q12HRS IV MEROPENEM Q12 KEPPRA GT Q12 LOPRESSOR GT IV PROTONIX Q12 HEPARIN SQ Q12 ATROPINE SL TID MUCOMYST HHN Q4HRS RTC IVF@50/HR : ICU STATUS PLAN: REFERRED TO [facility]...NO ONE IN ADMISSIONS TODAY
--- NOTE | 2019-02-27 12:00 | NUR ---
NURSE NOTES: Patient eyes open but does not track at this time. Patient still does not follow command or communicate. Patient remains on T-piece with 28% FiO2. Patient continues to copious tracheal secretions with foamy white sputum. Will ensure pulmonary MD aware. Will continue to monitor and tracheal suction as needed. Gastrostomy tube remains patent, asymptomatic, and running glucerna 1.5 at 35mL/hr with no residual noted. All wounds cleaned, redressed, and assessed by wound care nurse. All dressings clean, dry, and intact. Will continue to turn every two hours and as needed. Purewick remains in place. Patient linens dry and clean. Right upper arm PICC remains patent, asymptomatic, and saline locked at this time. Patient bed in low position with bed alarm on and call light in reach at this time. Bed bath and oral care done at this time.
--- NOTE | 2019-02-27 12:11 | Pulmonology Progress Note ---
Assessment/Plan Assessment/Plan Pulmonary Progress Note HPI This an 83-year-old female with history of tracheostomy, VDRF, feeding tube, admitted with Pneumonia, respiratory distress. Tolerating TC Past Medical History: VDRF, Trach, G tube, Hypertension, Cardiac disease, Dementia, Previous CVA, TIA, Seizure disorder, previous cancer Impression: Sepsis syndrome Pneumonia VDRF, Trach, G tube, Hypertension, Cardiac disease, Dementia, Previous CVA, Seizure disorder, Respiratory failure with hypoxia Anemia Sacral ulcer renal cyst Plan continue current AB TC as tolerated mucomyst and duoneb SNF meds as is Adjust oxygen as needed Monitor labs for change changes noted Patient is a DNR. No CPR. dc planning per family and primary impression, plan, and exam edited and reviewed in detail care discussed with RN Subjective Allergies: Coded Allergies: CODEINE (Verified Allergy, Unknown, HIVES, 09/15/09) Subjective on AC on mucomyst and duoneb noted congestion supportive care noted RT care reviewed overnight care reviewed Objective Vital Signs Noted Objective WDWN NAD contracted on vent reduced breath sounds bilaterally with scattered rhonchi same [id number] without MRG NABS nontender no HSM no CC minimal nonfocal nonverbal trach and gt reviewed and edited Laboratory Tests Noted Subjective ROS Limited/Unobtainable: No Allergies: Coded Allergies: CODEINE (Verified Allergy, Unknown, HIVES, 09/15/09) Objective Last 24 Hour Vital Signs Date Time Temp Pulse Resp B/P (MAP) Pulse Ox O2 Delivery O2 Flow Rate FiO2 02/27/19 09:30 71 127/96 02/27/19 07:10 99 T-Piece 8.0 30 02/27/19 07:10 87 22 99 T-Piece 8.0 30 02/27/19 07:00 78 23 148/67 (94) 99 02/27/19 06:00 78 23 147/62 (90) 98 02/27/19 05:00 71 23 160/72 (101) 100 02/27/19 04:00 98.3 75 21 162/74 (103) 100 02/27/19 04:00 69 02/27/19 04:00 6.0 28 02/27/19 04:00 T-piece 6.0 02/27/19 03:00 84 23 144/68 (93) 97 02/27/19 02:00 71 22 102/55 (71) 97 02/27/19 01:00 71 22 147/61 (89) 100 02/27/19 01:00 99 T-Piece 8.0 30 02/27/19 00:00 T-piece 6.0 02/27/19 00:00 6.0 28 02/27/19 00:00 74 02/27/19 00:00 98.2 67 22 144/62 (89) 100 02/26/19 23:00 66 20 141/62 (88) 100 02/26/19 22:00 62 21 131/55 (80) 100 02/26/19 21:00 68 21 149/67 (94) 100 02/26/19 20:17 68 151/66 02/26/19 20:00 98.5 69 21 151/66 (94) 100 02/26/19 20:00 72 02/26/19 20:00 6.0 28 02/26/19 20:00 T-piece 6.0 02/26/19 19:46 100 T-Piece 8.0 30 02/26/19 19:45 72 23 100 T-Piece 8.0 30 02/26/19 19:00 64 20 158/73 (101) 100 02/26/19 18:00 63 19 158/66 (96) 100 02/26/19 17:00 75 22 148/71 (96) 100 02/26/19 16:00 71 02/26/19 16:00 T-piece 8.0 02/26/19 16:00 98.1 78 20 180/75 (110) 100 02/26/19 16:00 8.0 30 02/26/19 15:00 71 123/98 (106) 99 02/26/19 14:00 80 144/57 (86) 97 02/26/19 13:00 98 T-Piece 8.0 30 02/26/19 13:00 72 159/70 (99) 99 Intake and Output 02/26/19 02/27/19 19:00 07:00 Intake Total 470 ml 445 ml Output Total 80 ml 200 ml Balance 390 ml 245 ml Free Water 50 ml Tube Feeding 420 ml 385 ml Other 60 ml Output Urine Total 80 ml 200 ml # Voids 3 # Bowel Movements 2 1 Current Medications Medications (Trade) Dose Ordered Sig/Maicol Route PRN Reason Start Time Stop Time Status Last Admin Dose Admin Acetaminophen (Tylenol) 650 mg Q4H PRN GT Mild Pain/Temp > 100.5 02/18/19 05:44 03/05/19 05:43 02/23/19 21:33 Amikacin Sulfate (Amikin) 500 mg Q12HR@10,22 INH 02/27/19 22:00 03/06/19 21:59 Atropine Sulfate (Atropine Opth Adriana) 1 drop TID SL 02/18/19 09:00 03/12/19 09:29 02/27/19 09:29 Chlorhexidine Gluconate (Cesilia-Hex 2%) 1 applic DAILY@1999 TOPIC 02/18/19 20:00 03/12/19 19:59 02/26/19 20:16 Heparin Sodium (Porcine) (Heparin 5000 units/ml) 5,000 units EVERY 12 HOURS SUBQ 02/18/19 09:00 03/16/19 23:14 02/27/19 09:35 Hydralazine HCl (Apresoline) 25 mg Q4H PRN GT SBP above 160 02/18/19 05:46 03/09/19 05:45 02/25/19 02:45 Levetiracetam (Keppra) 750 mg Q12HR GT 02/18/19 09:00 03/16/19 23:29 02/27/19 09:29 Meropenem 1 gm/ Sodium Chloride 55 ml @ 110 mls/hr Q12HR IVPB 02/27/19 11:00 03/04/19 10:59 Metoclopramide HCl (Reglan) 10 mg Q6H PRN IVP Nausea & Vomiting 02/18/19 05:46 03/09/19 05:45 Metoprolol Tartrate (Lopressor) 25 mg Q12HR GT 02/18/19 09:00 03/16/19 23:29 02/27/19 09:30 Pantoprazole (Protonix) 40 mg Q12HR IVP 02/18/19 09:00 03/16/19 23:29 02/27/19 09:29 Bg Moffett MD Feb 27, 2019 12:11
[2019-02-27] MEDS: Meropenem 1 GM in NS 55 ML IVPB SCH ×2 (12:25→20:58)
[2019-02-27 12:49] LABS: BASOPHILS % (AUTO) 0.9 % (0.0-2.0); EOSINOPHILS % (AUTO) 5.3 % (0.0-3.0); HEMATOCRIT 30.4 % (37.0-47.0); HEMOGLOBIN 9.7 G/DL (12.0-16.0); MEAN CORPUSCULAR VOLUME 86 FL (80-99); MONOCYTES % (AUTO) 6.2 % (1.0-10.0); NEUTROPHILS % (AUTO) 53.5 % (45.0-75.0); PLATELET COUNT 224 K/UL (150-450); RED BLOOD COUNT 3.53 M/UL (4.20-5.40); RED CELL DISTRIBUTION WIDTH 17.2 % (11.6-14.8); WHITE BLOOD COUNT 7.3 K/UL (4.8-10.8)
[2019-02-27 12:58] LABS: ANION GAP 4 mmol/L (5-15); BLOOD UREA NITROGEN 29 mg/dL (7-18); CALCIUM 8.7 MG/DL (8.5-10.1); CARBON DIOXIDE 36 MMOL/L (21-32); CHLORIDE 104 MMOL/L (98-107); CREATININE 1.1 MG/DL (0.55-1.30); POTASSIUM 4.6 MMOL/L (3.5-5.1); SODIUM 144 MMOL/L (136-145)
[2019-02-27 13:03] LABS: ALANINE AMINOTRANSFERASE 22 U/L (12-78); ALBUMIN 2.8 G/DL (3.4-5.0); ALBUMIN/GLOBULIN RATIO 0.5 (1.0-2.7); ALKALINE PHOSPHATASE 121 U/L (46-116); ASPARTATE AMINO TRANSFERASE 23 U/L (15-37); BILIRUBIN,TOTAL 0.2 MG/DL (0.2-1.0); PHOSPHORUS 3.5 MG/DL (2.5-4.9)
--- NOTE | 2019-02-27 14:00 | NUR ---
NURSE NOTES: Patient sleeping at this time. Patient showing no sign of acute distress. patient vital signs stable. Will continue to monitor. Patient repositioned.
--- NOTE | 2019-02-27 14:26 | NUR ---
DISCHARGE PLANNING RECEIVED A MESSAGE FROM UZAIR AT [facility] STATING THAT THEIR ENTRY LEVEL ACCOUNT EXECUTIVE (NICOLE) IS STILL DECLINING ACCEPTANCE OF THIS PATIENT EVEN THOUGH SHE IS NO LONGER POSITIVE FOR [facility] (REPORT WAS FAXED). REFUSED AT [facility] CONFIRMED NO AVAILABLE BEDS AT [facility] THIS MACADAM RAKER LEFT VMM FOR PATIENT'S DAUGHTER REGARDING OPTION [facility] WHICH IS [place] OTHER THAN THE ONE IN [place] AWAIT RETURN CALL
--- NOTE | 2019-02-27 14:52 | NUR ---
SS note Chart reviewed and met with patient who is currently in the ICU, Trach, peg dependent and requires subacute care upon discharge (pending bed at this time). Daughter, Chika Horton ([phone]) is the decision maker and requesting DNR at this time. This Sw left a message with daughter to provide support and address any concerns (awaiting call return at this time).
[2019-02-27] MEDS: Albuterol/Ipratropium 3ml neb HHN SCH ×3 (15:00→22:48)
--- NOTE | 2019-02-27 15:18 | NUR ---
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 Surrounding pink hyperpigmentation. No odor or exudate noted. Headrick hyperpigmentation from previous wound noted to sacrum. Pt also noted to have Cat 2 Skin Tear dorsal L hand, L 5th metatarsal extending into palm of hand. 80% skin flap in situ.Both heels are dry firm and blanchable. No other skin concerns noted. Tx.Plan: Cleanse Blister Dorsal and palm of L hand with saline. Versatel One Silicone Contact Layer(Applied). Apply Silvasorb Gel. Wrap with Kerlix Gauze.Change every 7 days and prn. Apply Moisture Barrier to sacrum. Cover with Optifoam drsg. Change every 3 days and prn. Cleanse L ischial wound with saline. Apply Therahoney. Apply Moisture Barrier Paste periwound. Cover with Optifoam drsg. Change every 3 days and prn. Apply Cavilon Skin Barrier to both heels. Cover each heel with Optifoam drsg. Change every 7 days and prn. APM/LAURITA Mattress overlay. Reposition at least every 2hours or as tolerated. Off-load heels with pillow.
--- NOTE | 2019-02-27 16:00 | NUR ---
NURSE NOTES: Patient sleeping with no sign of acute distress. Patient still does not follow command or communicate. Patient remains on T-piece with 28% FiO2. Patient continues to have copious tracheal secretions with foamy white sputum. Will ensure pulmonary MD aware. Will continue to monitor and tracheal suction as needed. Gastrostomy tube remains patent, asymptomatic, and running Glucerna 1.5 at 35mL/hr with no residual noted. All dressings clean, dry, and intact. Will continue to turn every two hours and as needed. Purewick remains in place. Patient linens dry and clean. Right upper arm PICC remains patent, asymptomatic, and saline locked at this time. Patient bed in low position with bed alarm on and call light in reach at this time. Oral care done at this time.
--- NOTE | 2019-02-27 16:36 | NUR ---
HAND-OFF: Report given to JEANNINE Delgado. Vital signs stable.
--- NOTE | 2019-02-27 16:37 | NUR ---
NURSE NOTES: Received pt from Gisselle Perez RN in stable condition without cardiopulmonary distress. Pt is awake in bed, obtunded, opens eyes spontaneously, trache to T-piece FiO2 28% 6L O2. Skin alterations are noted. Pt has a JOSY PICC line with NS running at 5cc/hr TKO. Purewick noted draining yellow urine. GT noted running Glucerna 1.5 at 35cc/hr. Bed is in lowest position, alarm on, side rails up x 2 and padded per seizure precaution, call light within reach. Will continue to monitor.
[2019-02-27] MEDS: Acetylcysteine 20% Soln 4ml HHN SCH ×2 (17:00→21:00)
--- NOTE | 2019-02-27 17:16 | Surgery Progress Note ---
Surgery Progress Note Subjective Additional Comments discharge planning Objective Last 24 Hour Vital Signs Date Time Temp Pulse Resp B/P (MAP) Pulse Ox O2 Delivery O2 Flow Rate FiO2 02/27/19 17:00 68 19 133/60 (84) 100 02/27/19 16:00 6.0 28 02/27/19 16:00 97.8 68 21 145/78 (100) 100 02/27/19 16:00 T-piece 8.0 02/27/19 16:00 67 02/27/19 15:00 65 20 103/53 (70) 100 02/27/19 14:00 66 22 148/62 (90) 100 02/27/19 13:00 69 22 150/68 (95) 100 02/27/19 12:46 98 T-Piece 8.0 30 02/27/19 12:00 98.4 71 21 158/78 (104) 100 02/27/19 12:00 6.0 28 02/27/19 12:00 70 02/27/19 12:00 T-piece 8.0 02/27/19 11:00 70 21 137/54 (81) 100 02/27/19 10:00 69 21 148/65 (92) 99 02/27/19 09:30 71 127/96 02/27/19 09:00 75 19 127/96 (106) 97 02/27/19 08:00 98.2 72 20 127/59 (81) 99 02/27/19 08:00 71 02/27/19 08:00 T-piece 8.0 02/27/19 08:00 6.0 28 02/27/19 07:10 99 T-Piece 8.0 30 02/27/19 07:10 87 22 99 T-Piece 8.0 30 02/27/19 07:00 78 23 148/67 (94) 99 02/27/19 06:00 78 23 147/62 (90) 98 02/27/19 05:00 71 23 160/72 (101) 100 02/27/19 04:00 98.3 75 21 162/74 (103) 100 02/27/19 04:00 69 02/27/19 04:00 6.0 28 02/27/19 04:00 T-piece 6.0 02/27/19 03:00 84 23 144/68 (93) 97 02/27/19 02:00 71 22 102/55 (71) 97 02/27/19 01:00 71 22 147/61 (89) 100 02/27/19 01:00 99 T-Piece 8.0 30 02/27/19 00:00 T-piece 6.0 02/27/19 00:00 6.0 28 02/27/19 00:00 74 02/27/19 00:00 98.2 67 22 144/62 (89) 100 02/26/19 23:00 66 20 141/62 (88) 100 02/26/19 22:00 62 21 131/55 (80) 100 02/26/19 21:00 68 21 149/67 (94) 100 02/26/19 20:17 68 151/66 02/26/19 20:00 98.5 69 21 151/66 (94) 100 02/26/19 20:00 72 02/26/19 20:00 6.0 28 02/26/19 20:00 T-piece 6.0 02/26/19 19:46 100 T-Piece 8.0 30 02/26/19 19:45 72 23 100 T-Piece 8.0 30 02/26/19 19:00 64 20 158/73 (101) 100 02/26/19 18:00 63 19 158/66 (96) 100 I&O Intake and Output 02/26/19 02/27/19 19:00 07:00 Intake Total 470 ml 480 ml Output Total 80 ml 200 ml Balance 390 ml 280 ml Free Water 50 ml Tube Feeding 420 ml 420 ml Other 60 ml Output Urine Total 80 ml 200 ml # Voids 3 # Bowel Movements 2 1 Dressing: other Wound: other Drains: other Cardiovascular: RSR Respiratory: decreased breath sounds Abdomen: soft, present bowel sounds Extremities: no cyanosis, other Laboratory Tests Test 02/27/19 09:26 White Blood Count 7.3 K/UL (4.8-10.8) Red Blood Count 3.53 M/UL (4.20-5.40) L Hemoglobin 9.7 G/DL (12.0-16.0) L Hematocrit 30.4 % (37.0-47.0) L Mean Corpuscular Volume 86 FL (80-99) Mean Corpuscular Hemoglobin 27.5 PG (27.0-31.0) Mean Corpuscular Hemoglobin Concent 32.0 G/DL (32.0-36.0) Red Cell Distribution Width 17.2 % (11.6-14.8) H Platelet Count 224 K/UL (150-450) Mean Platelet Volume 5.3 FL (6.5-10.1) L Neutrophils (%) (Auto) 53.5 % (45.0-75.0) Lymphocytes (%) (Auto) 34.0 % (20.0-45.0) Monocytes (%) (Auto) 6.2 % (1.0-10.0) Eosinophils (%) (Auto) 5.3 % (0.0-3.0) H Basophils (%) (Auto) 0.9 % (0.0-2.0) Sodium Level 144 MMOL/L (136-145) Potassium Level 4.6 MMOL/L (3.5-5.1) Chloride Level 104 MMOL/L (98-107) Carbon Dioxide Level 36 MMOL/L (21-32) H Anion Gap 4 mmol/L (5-15) L Blood Urea Nitrogen 29 mg/dL (7-18) H Creatinine 1.1 MG/DL (0.55-1.30) Estimat Glomerular Filtration Rate mL/min (>60) Glucose Level 104 MG/DL (74-106) Calcium Level 8.7 MG/DL (8.5-10.1) Phosphorus Level 3.5 MG/DL (2.5-4.9) Magnesium Level 1.9 MG/DL (1.8-2.4) Total Bilirubin 0.2 MG/DL (0.2-1.0) Aspartate Amino Transf (AST/SGOT) 23 U/L (15-37) Alanine Aminotransferase (ALT/SGPT) 22 U/L (12-78) Alkaline Phosphatase 121 U/L (46-116) H Total Protein 8.6 G/DL (6.4-8.2) H Albumin 2.8 G/DL (3.4-5.0) L Globulin 5.8 g/dL Albumin/Globulin Ratio 0.5 (1.0-2.7) L Plan Problems: (1) Sacral decubitus ulcer Assessment & Plan: This is a 83-year-old female with multiple medical committees that is currently admitted for medical care and management and identified to have multiple wounds requiring care. On admission patient noted to have a resolved sacral decubitus ulcer. Has had prior care and is well-healed at this time. Will ensure it does not open up again. Patient has a right ischial decubitus ulcer that is resolved. Scar intact and well formed. Will monitor to ensure it does not open up again. Patient has a left ischial decubitus ulcer that can be identified to be stage IV with palpable bone that has been resolving as noted by the periwound tissue and scar but open area approximately 1 cm x 1.5 cm few millimeters deep to bone identified. Unsure if this is been to be completely healed prior and has since opened or if has been healing at this level. No foul odor no drainage was unsure local wound care until healed Bilateral heels soft without signs of injury Resolving pressure injury L ischium(L)1.8cm x (W)1cm.Scattered biofilm at base of wound. Edges flat and adherent with surrounding hyperpigmentation. No odor or exudate noted. Sacrum is pale pink with surrounding hyperpigmentation. Hyperpigmentation R ischium with small sheared area centrally.No areas of erythema or exudate noted. Both heels are soft but blanchable. Skin Assessed under collar of trach and no evidence of skin breakdown noted. All wound Tx. are effective and continued as ordered. Pt ahs an APM/Belén mattress overlay and is being repositioned per protocols and per tolerance.No new skin concerns noted. Full thickness pressure injury L Ischium with small amt biofilm (L)1.8cm x (W) 1cm. Surrounding pink hyperpigmentation. No odor or exudate noted. [place] hyperpigmentation from previous wound noted to sacrum. Pt also noted to have Cat 2 Skin Tear dorsal L hand, L 5th metatarsal extending into palm of hand. 80% skin flap in situ.Both heels are dry firm and blanchable. No other skin concerns noted. Cleanse Blister Dorsal and palm of L hand with saline. Versatel One Silicone Contact Layer(Applied). Apply Silvasorb Gel. Wrap with Kerlix Gauze.Change every 7 days and prn. Apply Moisture Barrier to sacrum. Cover with Optifoam drsg. Change every 3 days and prn. Cleanse L ischial wound with saline. Apply Therahoney. Apply Moisture Barrier Paste periwound. Cover with Optifoam drsg. Change every 3 days and prn. Apply Cavilon Skin Barrier to both heels. Cover each heel with Optifoam drsg. Change every 7 days and prn. APM/BELÉN Mattress overlay. Reposition at least every 2hours or as tolerated. Off-load heels with pillow. Nutritional optimization We will monitor follow with recommendations cont with above upon d/c (2) Sepsis Assessment & Plan: IV abx as per ID trend labs improving wounds unlikely etiology likely respiratory imaging noted and okay abnormal lft's stable PICC on Abx in ICU for desaturation CXR with consolidation Evidence of left lower lobe pneumonia, also previously demonstrated Gastrostomy in good position Mild diastasis of the rectus abdominis musculature again demonstrated Retrosacral decubitus changes, better depicted on prior exam which included the pelvis Small hiatal hernia with evidence of trace gastroesophageal reflux (3) Feeding by G-tube Assessment & Plan: DAILY ESTIMATED NEEDS: Needs based on Pulmonary, wounds, bedbound/ 60kg adj 25-28 kcals/kg 8227-2085 total kcals 1.25-2 g protein/kg 75-120 g total protein 25-30 mL/kg 7045-1656 total fluid mLs NUTRITION DIAGNOSIS: * Swallowing difficulty R/T respiratory status as evidenced by pt on T-collar, now back the vent, PEG dep, TF changed to low rate at this time due to episodes of vomiting + residuals. * Increased kcal/prot needs R/T wound healing as evidenced by BL buttocks and sacral wound photos, refer to reynaldo. (CURRENT TF:Glucerna 1.5 @35ml) ENTERAL NUTRITION RECOMMENDATIONS: VITAL AF 1.2 @ 55ml/hr x 24 hrs to provide 1320ml, 1584kcal, 99g prot, 1060ml free water - Once medically appropriate to resume TF, rec to initiate elemental and carb control formula of Vital 1.2 for possible improved tolerance - Initiate VITAL 1.2 @ 25ml/hr x 6hrs, advance 10ml q 4-6 hrs as tolerated to goal rate - Flush per MD/ HOB over 30 degrees ADDITIONAL RECOMMENDATIONS: 1) Re-calibrated bedscale wt for accurate CBW 2) Wound healing: Add Cristian 1pkt BID w/ improved Tf tolerace + MVI x1 daily 3) Monitor lytes, replete as needed (low Mg, K) 4) Monitor NPO status, ability to resume TF. -> held on and off due to vomiting since 02/02 5) SSI prn resume tube feeds (4) Chronic vegetative state Assessment & Plan: incontinence of urine and stool. can soil dressings. nurses doing great job with monitoring and changing prn (5) Leukocytosis Walter Madera Feb 27, 2019 17:16
--- NOTE | 2019-02-27 17:30 | NUR ---
NURSE NOTES: Oral care performed, pt suctioned and repositioned. Pt in no acute distress. Will continue to monitor.
--- NOTE | 2019-02-27 19:08 | General Progress Note ---
Assessment/Plan Status: stable, progressing Assessment/Plan: Assessment - N/V, periodic - suspect due to gastroparesis - will hold off on G to J conversion per daughter request - Elevated Alk phos / LFT - CT negative - abd U/S negative - check hepatitis serologies - negative - Anemia with OB (-) stools - Resp failure, s/p Trach - dysphagia, s/p PEG - OBS - poor Px Recommendations - laxative PRN - continue TF - aspiration precautions - elevate HOB - PPI Subjective Allergies: Coded Allergies: CODEINE (Verified Allergy, Unknown, HIVES, 09/15/09) Subjective Seen in ICU tolerating TF no vomiting on T-piece for breathing awaiting bed at outside facility Objective Last 24 Hour Vital Signs Date Time Temp Pulse Resp B/P (MAP) Pulse Ox O2 Delivery O2 Flow Rate FiO2 02/27/19 19:00 81 20 138/69 (92) 100 02/27/19 18:41 95 20 100 T-Piece 8.0 30 92 20 100 02/27/19 18:40 100 T-Piece 8.0 30 02/27/19 18:40 92 20 100 T-Piece 8.0 30 02/27/19 18:00 77 22 137/60 (85) 99 02/27/19 17:00 68 19 133/60 (84) 100 02/27/19 16:00 6.0 28 02/27/19 16:00 97.8 68 21 145/78 (100) 100 02/27/19 16:00 T-piece 8.0 02/27/19 16:00 67 02/27/19 15:00 65 20 103/53 (70) 100 02/27/19 14:00 66 22 148/62 (90) 100 02/27/19 13:00 69 22 150/68 (95) 100 02/27/19 12:46 98 T-Piece 8.0 30 02/27/19 12:00 98.4 71 21 158/78 (104) 100 02/27/19 12:00 6.0 28 02/27/19 12:00 70 02/27/19 12:00 T-piece 8.0 02/27/19 11:00 70 21 137/54 (81) 100 02/27/19 10:00 69 21 148/65 (92) 99 02/27/19 09:30 71 127/96 02/27/19 09:00 75 19 127/96 (106) 97 02/27/19 08:00 98.2 72 20 127/59 (81) 99 02/27/19 08:00 71 02/27/19 08:00 T-piece 8.0 02/27/19 08:00 6.0 28 02/27/19 07:10 99 T-Piece 8.0 30 02/27/19 07:10 87 22 99 T-Piece 8.0 30 02/27/19 07:00 78 23 148/67 (94) 99 02/27/19 06:00 78 23 147/62 (90) 98 02/27/19 05:00 71 23 160/72 (101) 100 02/27/19 04:00 98.3 75 21 162/74 (103) 100 02/27/19 04:00 69 02/27/19 04:00 6.0 28 02/27/19 04:00 T-piece 6.0 02/27/19 03:00 84 23 144/68 (93) 97 02/27/19 02:00 71 22 102/55 (71) 97 02/27/19 01:00 71 22 147/61 (89) 100 02/27/19 01:00 99 T-Piece 8.0 30 02/27/19 00:00 T-piece 6.0 02/27/19 00:00 6.0 28 02/27/19 00:00 74 02/27/19 00:00 98.2 67 22 144/62 (89) 100 02/26/19 23:00 66 20 141/62 (88) 100 02/26/19 22:00 62 21 131/55 (80) 100 02/26/19 21:00 68 21 149/67 (94) 100 02/26/19 20:17 68 151/66 02/26/19 20:00 98.5 69 21 151/66 (94) 100 02/26/19 20:00 72 02/26/19 20:00 6.0 28 02/26/19 20:00 T-piece 6.0 02/26/19 19:46 100 T-Piece 8.0 30 02/26/19 19:45 72 23 100 T-Piece 8.0 30 Intake and Output 02/26/19 02/27/19 19:00 07:00 Intake Total 470 ml 480 ml Output Total 80 ml 200 ml Balance 390 ml 280 ml Free Water 50 ml Tube Feeding 420 ml 420 ml Other 60 ml Output Urine Total 80 ml 200 ml # Voids 3 # Bowel Movements 2 1 Laboratory Tests 02/27/19 09:26: White Blood Count 7.3, Red Blood Count 3.53L, Hemoglobin 9.7L, Hematocrit 30.4L , Mean Corpuscular Volume 86, Mean Corpuscular Hemoglobin 27.5, Mean Corpuscular Hemoglobin Concent 32.0, Red Cell Distribution Width 17.2H, Platelet Count 224, Mean Platelet Volume 5.3L, Neutrophils (%) (Auto) 53.5, Lymphocytes (%) (Auto) 34.0, Monocytes (%) (Auto) 6.2, Eosinophils (%) (Auto) 5.3H, Basophils (%) (Auto) 0.9, Sodium Level 144, Potassium Level 4.6, Chloride Level 104, Carbon Dioxide Level 36H, Anion Gap 4L, Blood Urea Nitrogen 29H, Creatinine 1.1, Estimat Glomerular Filtration Rate , Glucose Level 104, Calcium Level 8.7, Phosphorus Level 3.5, Magnesium Level 1.9, Total Bilirubin 0.2, Aspartate Amino Transf (AST/SGOT) 23, Alanine Aminotransferase (ALT/SGPT) 22, Alkaline Phosphatase 121H, Total Protein 8.6H, Albumin 2.8L, Globulin 5.8, Albumin/Globulin Ratio 0.5L Height (Feet): 5 Height (Inches): 5.00 Weight (Pounds): 180 Objective Debilitated AA woman NCAT (+) trach coarse ronchi RR obese abd, (+) GT no edema Celio Vaughan MD Feb 27, 2019 19:08
--- NOTE | 2019-02-27 19:21 | NUR ---
HAND-OFF: Report given to JEANNINE Church. Pt in stable condition.
--- NOTE | 2019-02-27 19:22 | NUR ---
NURSE NOTES: Endorsement received from JEANNINE Delgado. Patient opens eyes spontaneously, does not track. With Trache, Shiley 6.0, on oxygen 28% per T piece. GT present, patent and intact. Receiving Glucerna 1.5 at 35ml/hr. No residual. Purewick in place. Right upper arm PICC, patent and intact. On P200 mattress. On seizure precautions. Head of bed elevated. Bed locked and in low position. Call light within reach.
[2019-02-27] MEDS: Dyna-Hex 2% Top Sol 2oz TOPIC SCH (19:48)
--- NOTE | 2019-02-27 21:00 | NUR ---
RESPIRATORY NOTE: Missd rx admin due to higher level of triage for other pt. Will resume as scheduled.
--- NOTE | 2019-02-27 21:00 | NUR ---
NURSE NOTES: Patient asleep. No signs of pain or discomfort. Repositioned. Secretions suctioned. Noted with copious amount of thick white secretion.
[2019-02-27] MEDS: Amikacin for Inhalation 2ML INH SCH (22:48)
--- NOTE | 2019-02-27 23:00 | NUR ---
NURSE NOTES: Patient passed soft brown stool. Krystina care done.
[2019-02-28] VITALS (24 sets, daily range): BP systolic 101–160; BP diastolic 44–77
--- NOTE | 2019-02-28 01:00 | NUR ---
NURSE NOTES: Patient asleep at this time. Vital signs stable
[2019-02-28] MEDS: Albuterol/Ipratropium 3ml neb HHN SCH ×6 (02:32→22:19)
[2019-02-28] MEDS: Acetylcysteine 20% Soln 4ml HHN SCH ×6 (02:32→22:19)
--- NOTE | 2019-02-28 03:00 | NUR ---
NURSE NOTES: Repositioned. Secretion suctioned. Still with copious amount of thick white secretion.
--- NOTE | 2019-02-28 05:00 | NUR ---
NURSE NOTES: Bed bath, oral care, change of linens and dressings done
--- NOTE | 2019-02-28 07:13 | General Progress Note ---
Assessment/Plan Problem List: (1) Seizure ICD Codes: R56.9 - Unspecified convulsions SNOMED: 40060026 (2) Anemia ICD Codes: D64.9 - Anemia, unspecified SNOMED: 750150980 Qualifiers: Qualified Codes: D64.9 - Anemia, unspecified (3) Sepsis ICD Codes: A41.9 - Sepsis, unspecified organism SNOMED: 77808586, 821923776 Qualifiers: Qualified Codes: A41.9 - Sepsis, unspecified organism (4) Respiratory failure with hypoxia ICD Codes: J96.91 - Respiratory failure, unspecified with hypoxia SNOMED: 04407588151300194 Qualifiers: Qualified Codes: J96.21 - Acute and chronic respiratory failure with hypoxia (5) HCAP (healthcare-associated pneumonia) ICD Codes: J18.9 - Pneumonia, unspecified organism SNOMED: 089032264, 457726550 (6) Sacral decubitus ulcer ICD Codes: L89.159 - Pressure ulcer of sacral region, unspecified stage SNOMED: 097166213 (7) HTN (hypertension) ICD Codes: I10 - Essential (primary) hypertension SNOMED: 49753158 (8) Chronic vegetative state ICD Codes: R40.3 - Persistent vegetative state SNOMED: 19195881 (9) Chronic respiratory failure ICD Codes: J96.10 - Chronic respiratory failure, unspecified whether with hypoxia or hypercapnia SNOMED: 28174634 (10) Limited mobility ICD Codes: Z74.09 - Other reduced mobility SNOMED: 9403688 Status: stable, progressing Assessment/Plan: vent prn as needed resp rx suctioning as needed gt feeds monitor for vomiting bowel regime monitor residuals sx rx repeat sputum culture transfuse prn dc planning Subjective ROS Limited/Unobtainable: No Constitutional: Reports: malaise, weakness HEENT: Reports: no symptoms Cardiovascular: Reports: no symptoms Respiratory: Reports: cough, sputum Gastrointestinal/Abdominal: Reports: difficulty swallowing Genitourinary: Reports: no symptoms Neurologic/Psychiatric: Reports: pre-existing deficit, seizure Endocrine: Reports: no symptoms Hematologic/Lymphatic: Reports: anemia Allergies: Coded Allergies: CODEINE (Verified Allergy, Unknown, HIVES, 09/15/09) All Systems: reviewed and negative except above Subjective no events. remains on the vent. intermittently congested. no fever or chills. overall the same Objective Last 24 Hour Vital Signs Date Time Temp Pulse Resp B/P (MAP) Pulse Ox O2 Delivery O2 Flow Rate FiO2 02/28/19 07:05 67 20 97 T-Piece 8.0 30 02/28/19 07:05 97 T-Piece 8.0 30 02/28/19 06:00 75 20 138/52 (80) 100 02/28/19 05:00 81 23 151/64 (93) 99 02/28/19 04:00 T-piece 8.0 02/28/19 04:00 6.0 28 02/28/19 04:00 97.6 77 18 151/66 (94) 98 02/28/19 04:00 74 02/28/19 03:00 83 16 158/60 (92) 99 02/28/19 02:33 82 20 100 T-Piece 8.0 30 80 20 100 02/28/19 02:00 70 19 139/64 (89) 100 02/28/19 01:00 72 23 160/64 (96) 97 02/28/19 00:18 100 T-Piece 8.0 30 02/28/19 00:00 T-piece 8.0 02/28/19 00:00 97.7 75 24 158/72 (100) 100 02/28/19 00:00 6.0 28 02/28/19 00:00 78 02/27/19 23:00 87 18 156/75 (102) 100 02/27/19 22:50 80 20 100 T-Piece 8.0 30 75 20 100 02/27/19 22:00 74 17 154/105 (121) 100 02/27/19 21:00 95 18 125/103 (110) 100 02/27/19 20:59 93 154/64 02/27/19 20:00 73 02/27/19 20:00 6.0 28 02/27/19 20:00 T-piece 8.0 02/27/19 20:00 97.9 71 18 154/64 (94) 99 02/27/19 19:00 81 20 138/69 (92) 100 02/27/19 18:41 95 20 100 T-Piece 8.0 30 92 20 100 02/27/19 18:40 100 T-Piece 8.0 30 02/27/19 18:40 92 20 100 T-Piece 8.0 30 02/27/19 18:00 77 22 137/60 (85) 99 02/27/19 17:00 68 19 133/60 (84) 100 02/27/19 16:00 6.0 28 02/27/19 16:00 97.8 68 21 145/78 (100) 100 02/27/19 16:00 T-piece 8.0 02/27/19 16:00 67 02/27/19 15:00 65 20 103/53 (70) 100 02/27/19 14:00 66 22 148/62 (90) 100 02/27/19 13:00 69 22 150/68 (95) 100 02/27/19 12:46 98 T-Piece 8.0 30 02/27/19 12:00 98.4 71 21 158/78 (104) 100 02/27/19 12:00 6.0 28 02/27/19 12:00 70 02/27/19 12:00 T-piece 8.0 02/27/19 11:00 70 21 137/54 (81) 100 02/27/19 10:00 69 21 148/65 (92) 99 02/27/19 09:30 71 127/96 02/27/19 09:00 75 19 127/96 (106) 97 02/27/19 08:00 98.2 72 20 127/59 (81) 99 02/27/19 08:00 71 02/27/19 08:00 T-piece 8.0 02/27/19 08:00 6.0 28 Intake and Output 02/27/19 02/28/19 19:00 07:00 Intake Total 520 ml 500 ml Output Total 250 ml 250 ml Balance 270 ml 250 ml Free Water 80 ml IV Total 55 ml 55 ml Tube Feeding 385 ml 385 ml Other 60 ml Output Urine Total 250 ml 250 ml # Voids 2 # Bowel Movements 2 Laboratory Tests 02/27/19 09:26: White Blood Count 7.3, Red Blood Count 3.53L, Hemoglobin 9.7L, Hematocrit 30.4L , Mean Corpuscular Volume 86, Mean Corpuscular Hemoglobin 27.5, Mean Corpuscular Hemoglobin Concent 32.0, Red Cell Distribution Width 17.2H, Platelet Count 224, Mean Platelet Volume 5.3L, Neutrophils (%) (Auto) 53.5, Lymphocytes (%) (Auto) 34.0, Monocytes (%) (Auto) 6.2, Eosinophils (%) (Auto) 5.3H, Basophils (%) (Auto) 0.9, Sodium Level 144, Potassium Level 4.6, Chloride Level 104, Carbon Dioxide Level 36H, Anion Gap 4L, Blood Urea Nitrogen 29H, Creatinine 1.1, Estimat Glomerular Filtration Rate , Glucose Level 104, Calcium Level 8.7, Phosphorus Level 3.5, Magnesium Level 1.9, Total Bilirubin 0.2, Aspartate Amino Transf (AST/SGOT) 23, Alanine Aminotransferase (ALT/SGPT) 22, Alkaline Phosphatase 121H, Total Protein 8.6H, Albumin 2.8L, Globulin 5.8, Albumin/Globulin Ratio 0.5L Height (Feet): 5 Height (Inches): 5.00 Weight (Pounds): 180 Objective General Appearance: WD/WN, confused. on trach collar Neck: supple Cardiovascular: normal rate, regular rhythm Respiratory/Chest: chest wall non-tender, rhonchi - bilaterally(minimal) Abdomen: normal bowel sounds, non tender, soft, no organomegaly Edema: no edema noted Arm (L), no edema noted Arm (R), no edema noted Leg (L), no edema noted Leg (R), no edema noted Pedal (L), no edema noted Pedal (R), no edema noted Generalized Neurologic: disoriented, unresponsive, aphasia Irvin Beltrán MD Feb 28, 2019 07:13
--- NOTE | 2019-02-28 07:25 | NUR ---
HAND-OFF: Report given to JEANNINE Gilmore.
--- NOTE | 2019-02-28 07:26 | NUR ---
NURSE NOTES: RECEIVED PATIENT FROM Sajan GARDNER RN. PATIENT IS LYING IN BED ASLEEP, ABLE TO OPEN EYES BUT DOESN'T TRACK. HOOKED TO PRODUCTION OPERATIONS ENGINEER. ON TPIECE AT 28%, 6L, SHILEY 6. NO SIGNS OF DISTRESS OF THE MOMENT. NOTED COPIOUS AMOUNT OF WHITE THICK SECRETION. SUCTIONED SECRETIONS. GT TUBE NOTED AND SKIN BREAKDOWN AROUND GTUBE SITE WITH YELLOWISH DISCHARGE. RUNNING GTF GLUCERNA 1.5 AT 35ML/HR. PUREWICK NOTED. SKIN ALTERATION NOTED. ON OVERLAY MATTRESS. WITH R UA PICC LINE, DRESSING DRY AND INTACT. CALL LIGHT WITHIN REACH. BED AT LOWEST POSITION. SIRE RAILS UP. WILL CONTINUE TO MONITOR.
--- NOTE | 2019-02-28 08:20 | NUR ---
NURSE NOTES: CALLED AND LEFT A MESSAGE FOR THE [facility] OF [facility] FOR BED AVAILABILITY. AWAITING FOR CALL BACK.
[2019-02-28] MEDS: Meropenem 1 GM in NS 55 ML IVPB SCH ×2 (08:48→20:53)
[2019-02-28] MEDS: levETIRAcetam 500mg/5ml Liquid GT SCH ×2 (08:48→20:54)
[2019-02-28] MEDS: Heparin 5000 units/ml inj SUBQ SCH ×2 (08:50→20:57)
[2019-02-28] MEDS: Pantoprazole Inj IVP SCH ×2 (08:51→20:55)
--- NOTE | 2019-02-28 09:00 | NUR ---
NURSE NOTES: SEEN AND EXAMINED BY DR HER. INFORMED OF THE YELLOWISH DISCHARGE FROM THR GTUBE SITE. NO SIGNS FOF RESPI DISTRESS OF THE MOMENT. WILL CONTINUE TO MONITOR.
[2019-02-28] MEDS ORDERED: NS 275ml ONE (09:42)
[2019-02-28] MEDS ORDERED: Tubing IV Secondary IV ONE (09:42)
[2019-02-28] MEDS: Amikacin for Inhalation 2ML INH SCH ×2 (09:49→22:18)
--- NOTE | 2019-02-28 11:40 | NUR ---
NURSE NOTES: SUCTIONED SECRETION FREQUENTLY. NOTED COPIOUS AMT OF WHITE THIN/THICK SECRETION FROM THE MOUTH AND ETT. WILL CONTINUE TO MONITOR.
--- NOTE | 2019-02-28 13:29 | NUR ---
NURSE NOTES: SEEN AND EXAMINED BY DR LI WITH NEW ORDERS MADE. WILL CONTINUE TO MONITOR.
--- NOTE | 2019-02-28 14:44 | Surgery Progress Note ---
Surgery Progress Note Subjective Additional Comments pending placement Objective Last 24 Hour Vital Signs Date Time Temp Pulse Resp B/P (MAP) Pulse Ox O2 Delivery O2 Flow Rate FiO2 02/28/19 14:43 69 20 100 T-Piece 8.0 30 68 20 99 02/28/19 14:00 62 21 140/54 (82) 100 02/28/19 13:00 69 21 143/61 (88) 100 02/28/19 12:41 100 T-Piece 8.0 30 02/28/19 12:00 6.0 28 02/28/19 12:00 83 02/28/19 12:00 T-piece 8.0 02/28/19 12:00 98.5 80 22 145/64 (91) 100 02/28/19 11:22 64 20 100 T-Piece 8.0 30 60 20 100 02/28/19 11:00 61 21 109/57 (74) 100 02/28/19 10:00 63 22 115/50 (71) 100 02/28/19 09:52 64 20 100 T-Piece 8.0 30 64 20 100 02/28/19 09:00 74 24 146/73 (97) 100 02/28/19 08:49 76 117/77 02/28/19 08:00 T-piece 8.0 02/28/19 08:00 66 02/28/19 08:00 98.5 76 23 117/77 (90) 100 02/28/19 08:00 6.0 28 02/28/19 07:19 64 20 100 T-Piece 8.0 30 67 20 97 02/28/19 07:05 67 20 97 T-Piece 8.0 30 02/28/19 07:05 97 T-Piece 8.0 30 02/28/19 07:00 72 11 102/44 (63) 96 02/28/19 06:00 75 20 138/52 (80) 100 02/28/19 05:00 81 23 151/64 (93) 99 02/28/19 04:00 T-piece 8.0 02/28/19 04:00 6.0 28 02/28/19 04:00 97.6 77 18 151/66 (94) 98 02/28/19 04:00 74 02/28/19 03:00 83 16 158/60 (92) 99 02/28/19 02:33 82 20 100 T-Piece 8.0 30 80 20 100 02/28/19 02:00 70 19 139/64 (89) 100 02/28/19 01:00 72 23 160/64 (96) 97 02/28/19 00:18 100 T-Piece 8.0 30 02/28/19 00:00 T-piece 8.0 02/28/19 00:00 97.7 75 24 158/72 (100) 100 02/28/19 00:00 6.0 28 02/28/19 00:00 78 02/27/19 23:00 87 18 156/75 (102) 100 02/27/19 22:50 80 20 100 T-Piece 8.0 30 75 20 100 02/27/19 22:00 74 17 154/105 (121) 100 02/27/19 21:00 95 18 125/103 (110) 100 02/27/19 20:59 93 154/64 02/27/19 20:00 73 02/27/19 20:00 6.0 28 02/27/19 20:00 T-piece 8.0 02/27/19 20:00 97.9 71 18 154/64 (94) 99 02/27/19 19:00 81 20 138/69 (92) 100 02/27/19 18:41 95 20 100 T-Piece 8.0 30 92 20 100 02/27/19 18:40 100 T-Piece 8.0 30 02/27/19 18:40 92 20 100 T-Piece 8.0 30 02/27/19 18:00 77 22 137/60 (85) 99 02/27/19 17:00 68 19 133/60 (84) 100 02/27/19 16:00 6.0 28 02/27/19 16:00 97.8 68 21 145/78 (100) 100 02/27/19 16:00 T-piece 8.0 02/27/19 16:00 67 02/27/19 15:00 65 20 103/53 (70) 100 I&O Intake and Output 02/27/19 02/28/19 19:00 07:00 Intake Total 520 ml 535 ml Output Total 250 ml 250 ml Balance 270 ml 285 ml Free Water 80 ml IV Total 55 ml 55 ml Tube Feeding 385 ml 420 ml Other 60 ml Output Urine Total 250 ml 250 ml # Voids 2 # Bowel Movements 2 Dressing: other Wound: other Drains: other Cardiovascular: RSR Respiratory: decreased breath sounds Abdomen: soft, present bowel sounds Extremities: no cyanosis Plan Problems: (1) Sacral decubitus ulcer Assessment & Plan: This is a 83-year-old female with multiple medical committees that is currently admitted for medical care and management and identified to have multiple wounds requiring care. On admission patient noted to have a resolved sacral decubitus ulcer. Has had prior care and is well-healed at this time. Will ensure it does not open up again. Patient has a right ischial decubitus ulcer that is resolved. Scar intact and well formed. Will monitor to ensure it does not open up again. Patient has a left ischial decubitus ulcer that can be identified to be stage IV with palpable bone that has been resolving as noted by the periwound tissue and scar but open area approximately 1 cm x 1.5 cm few millimeters deep to bone identified. Unsure if this is been to be completely healed prior and has since opened or if has been healing at this level. No foul odor no drainage was unsure local wound care until healed Bilateral heels soft without signs of injury Resolving pressure injury L ischium(L)1.8cm x (W)1cm.Scattered biofilm at base of wound. Edges flat and adherent with surrounding hyperpigmentation. No odor or exudate noted. Sacrum is pale pink with surrounding hyperpigmentation. Hyperpigmentation R ischium with small sheared area centrally.No areas of erythema or exudate noted. Both heels are soft but blanchable. Skin Assessed under collar of trach and no evidence of skin breakdown noted. All wound Tx. are effective and continued as ordered. Pt ahs an APM/Belén mattress overlay and is being repositioned per protocols and per tolerance.No new skin concerns noted. Full thickness pressure injury L Ischium with small amt biofilm (L)1.8cm x (W) 1cm. Surrounding pink hyperpigmentation. No odor or exudate noted. [place] hyperpigmentation from previous wound noted to sacrum. Pt also noted to have Cat 2 Skin Tear dorsal L hand, L 5th metatarsal extending into palm of hand. 80% skin flap in situ.Both heels are dry firm and blanchable. No other skin concerns noted. Cleanse Blister Dorsal and palm of L hand with saline. Versatel One Silicone Contact Layer(Applied). Apply Silvasorb Gel. Wrap with Kerlix Gauze.Change every 7 days and prn. Apply Moisture Barrier to sacrum. Cover with Optifoam drsg. Change every 3 days and prn. Cleanse L ischial wound with saline. Apply Therahoney. Apply Moisture Barrier Paste periwound. Cover with Optifoam drsg. Change every 3 days and prn. Apply Cavilon Skin Barrier to both heels. Cover each heel with Optifoam drsg. Change every 7 days and prn. APM/BELÉN Mattress overlay. Reposition at least every 2hours or as tolerated. Off-load heels with pillow. Nutritional optimization We will monitor follow with recommendations cont with above upon d/c (2) Sepsis Assessment & Plan: IV abx as per ID trend labs improving wounds unlikely etiology likely respiratory imaging noted and okay abnormal lft's stable PICC on Abx in ICU for desaturation CXR with consolidation Evidence of left lower lobe pneumonia, also previously demonstrated Gastrostomy in good position Mild diastasis of the rectus abdominis musculature again demonstrated Retrosacral decubitus changes, better depicted on prior exam which included the pelvis Small hiatal hernia with evidence of trace gastroesophageal reflux (3) Feeding by G-tube Assessment & Plan: DAILY ESTIMATED NEEDS: Needs based on Pulmonary, wounds, bedbound/ 60kg adj 25-28 kcals/kg 4354-8204 total kcals 1.25-2 g protein/kg 75-120 g total protein 25-30 mL/kg 4191-7248 total fluid mLs NUTRITION DIAGNOSIS: * Swallowing difficulty R/T respiratory status as evidenced by pt on T-collar, now back the vent, PEG dep, TF changed to low rate at this time due to episodes of vomiting + residuals. * Increased kcal/prot needs R/T wound healing as evidenced by BL buttocks and sacral wound photos, refer to WC reynaldo. (CURRENT TF:Glucerna 1.5 @35ml) ENTERAL NUTRITION RECOMMENDATIONS: VITAL AF 1.2 @ 55ml/hr x 24 hrs to provide 1320ml, 1584kcal, 99g prot, 1060ml free water - Once medically appropriate to resume TF, rec to initiate elemental and carb control formula of Vital 1.2 for possible improved tolerance - Initiate VITAL 1.2 @ 25ml/hr x 6hrs, advance 10ml q 4-6 hrs as tolerated to goal rate - Flush per MD/ HOB over 30 degrees ADDITIONAL RECOMMENDATIONS: 1) Re-calibrated bedscale wt for accurate CBW 2) Wound healing: Add Cristian 1pkt BID w/ improved Tf tolerace + MVI x1 daily 3) Monitor lytes, replete as needed (low Mg, K) 4) Monitor NPO status, ability to resume TF. -> held on and off due to vomiting since 02/02 5) SSI prn resume tube feeds (4) Chronic vegetative state Assessment & Plan: incontinence of urine and stool. can soil dressings. nurses doing great job with monitoring and changing prn (5) Leukocytosis Walter Madera Feb 28, 2019 14:44
--- NOTE | 2019-02-28 15:30 | NUR ---
NURSE NOTES: SUCTIONED SECRETIONS AD REPOSITIONED PATIENT. WILL CONTINUE TO MONITOR.
--- NOTE | 2019-02-28 17:00 | NUR ---
NURSE NOTES: STILL NOTED COPIOUS AMOUNT OF SECRETIONS FROM THE MOUTH AND TRACH. WILL CONTINUE TO MONITOR.
--- NOTE | 2019-02-28 17:01 | Pulmonolgy Critical Care Note ---
Critical Care - Asmt/Plan Assessment/Plan: Pulmonary CCM Progress Note Assessment/Plan Impression: Sepsis syndrome Pneumonia VDRF, Trach, G tube, Hypertension, Cardiac disease, Dementia, Previous CVA, Seizure disorder, Respiratory failure with hypoxia Anemia Sacral ulcer renal cyst pulmonary congestion Plan respiratory care to continue as is atropine neb therapy SNF meds as is off vent as able and has been off for several day Oxygen as needed Monitor labs daily changes noted and reviewed feeds as tolerated monitor albumin levels and provide protein and nutrition elevate head aspiration precautions Patient is a DNR. No CPR. ICU care reviewed medications/laboratory data/nursing notes/ICU care reviewed in detail note reviewed and edited care discussed with RN and RT ICU time spent 45 minutes Subjective Allergies: Coded Allergies: CODEINE (Verified Allergy, Unknown, HIVES, 09/15/09) Subjective respiratory care noted congestion- improved with atropine ICU care reviewed supportive care noted and reviewed RT care reviewed overnight care noted findings reviewed and discussed in detail with nursing and RT seen earlier this am Objective Vital Signs Noted Objective WDWN NAD contracted off vent reduced breath sounds bilaterally with some rhonchi overall; no wheeze [id number] without MRG NABS nontender no HSM no CC minimal nonfocal nonverbal trach and gt reviewed and edited Laboratory Tests Noted 02/24/19 06:20: White Blood Count 7.7, Red Blood Count 3.25L, Hemoglobin 8.7L, Hematocrit 27.7L , Mean Corpuscular Volume 85, Mean Corpuscular Hemoglobin 26.8L, Mean Corpuscular Hemoglobin Concent 31.4L, Red Cell Distribution Width 17.1H, Platelet Count 244, Mean Platelet Volume 5.0L, Neutrophils (%) (Auto) 53.6, Lymphocytes (%) (Auto) 34.1, Monocytes (%) (Auto) 6.7, Eosinophils (%) (Auto) 4.7H, Basophils (%) (Auto) 0.9, Sodium Level 143, Potassium Level 4.6, Chloride Level 107, Carbon Dioxide Level 31, Anion Gap 5, Blood Urea Nitrogen 26H, Creatinine 1.1, Estimat Glomerular Filtration Rate , Glucose Level 98, Calcium Level 8.7, Total Bilirubin 0.2, Aspartate Amino Transf (AST/SGOT) 18, Alanine Aminotransferase (ALT/SGPT) 18, Alkaline Phosphatase 126H, Total Protein 8.0, Albumin 2.4L, Globulin 5.6, Albumin/Globulin Ratio 0.4L Current Medications Medications (Trade) Dose Ordered Sig/Maicol Route PRN Reason Start Time Stop Time Status Last Admin Dose Admin Acetaminophen (Tylenol) 650 mg Q4H PRN GT Mild Pain/Temp > 100.5 02/18/19 05:44 03/05/19 05:43 02/23/19 21:33 Albuterol/ Ipratropium (Albuterol/ Ipratropium) 3 ml Q4H PRN HHN Shortness of Breath 02/22/19 07:07 02/27/19 07:06 02/23/19 23:37 Amikacin Sulfate (Amikin) 500 mg Q12HR@ INH 02/20/19 22:00 02/27/19 21:59 02/23/19 22:18 Ascorbic Acid (Vitamin C) 250 mg DAILY GT 02/18/19 09:00 02/24/19 08:59 02/23/19 08:23 Atropine Sulfate (Atropine Opth Adriana) 1 drop TID SL 02/18/19 09:00 03/12/19 09:29 02/23/19 17:24 Chlorhexidine Gluconate (Cesilia-Hex 2%) 1 applic DAILY@1999 TOPIC 02/18/19 20:00 03/12/19 19:59 02/23/19 20:09 Heparin Sodium (Porcine) (Heparin 5000 units/ml) 5,000 units EVERY 12 HOURS SUBQ 02/18/19 09:00 03/16/19 23:14 02/23/19 20:41 Hydralazine HCl (Apresoline) 25 mg Q4H PRN GT SBP above 160 02/18/19 05:46 03/09/19 05:45 Levetiracetam (Keppra) 750 mg Q12HR GT 02/18/19 09:00 03/16/19 23:29 02/23/19 20:39 Metoclopramide HCl (Reglan) 10 mg Q6H PRN IVP Nausea & Vomiting 02/18/19 05:46 03/09/19 05:45 Metoprolol Tartrate (Lopressor) 25 mg Q12HR GT 02/18/19 09:00 03/16/19 23:29 02/23/19 20:39 Pantoprazole (Protonix) 40 mg Q12HR IVP 02/18/19 09:00 03/16/19 23:29 02/23/19 20:39 Critical Care - Objective Last 24 Hour Vital Signs Date Time Temp Pulse Resp B/P (MAP) Pulse Ox O2 Delivery O2 Flow Rate FiO2 02/28/19 16:00 T-piece 8.0 02/28/19 16:00 6.0 28 02/28/19 16:00 69 19 104/45 (64) 100 02/28/19 15:00 65 21 101/49 (66) 100 02/28/19 14:43 69 20 100 T-Piece 8.0 30 68 20 99 02/28/19 14:00 62 21 140/54 (82) 100 02/28/19 13:00 69 21 143/61 (88) 100 02/28/19 12:41 100 T-Piece 8.0 30 02/28/19 12:00 6.0 28 02/28/19 12:00 83 02/28/19 12:00 T-piece 8.0 02/28/19 12:00 98.5 80 22 145/64 (91) 100 02/28/19 11:22 64 20 100 T-Piece 8.0 30 60 20 100 02/28/19 11:00 61 21 109/57 (74) 100 02/28/19 10:00 63 22 115/50 (71) 100 02/28/19 09:52 64 20 100 T-Piece 8.0 30 64 20 100 02/28/19 09:00 74 24 146/73 (97) 100 02/28/19 08:49 76 117/77 02/28/19 08:00 T-piece 8.0 02/28/19 08:00 66 02/28/19 08:00 98.5 76 23 117/77 (90) 100 02/28/19 08:00 6.0 28 02/28/19 07:19 64 20 100 T-Piece 8.0 30 67 20 97 02/28/19 07:05 67 20 97 T-Piece 8.0 30 02/28/19 07:05 97 T-Piece 8.0 30 02/28/19 07:00 72 11 102/44 (63) 96 02/28/19 06:00 75 20 138/52 (80) 100 02/28/19 05:00 81 23 151/64 (93) 99 02/28/19 04:00 T-piece 8.0 02/28/19 04:00 6.0 28 02/28/19 04:00 97.6 77 18 151/66 (94) 98 02/28/19 04:00 74 02/28/19 03:00 83 16 158/60 (92) 99 02/28/19 02:33 82 20 100 T-Piece 8.0 30 80 20 100 02/28/19 02:00 70 19 139/64 (89) 100 02/28/19 01:00 72 23 160/64 (96) 97 02/28/19 00:18 100 T-Piece 8.0 30 02/28/19 00:00 T-piece 8.0 02/28/19 00:00 97.7 75 24 158/72 (100) 100 02/28/19 00:00 6.0 28 02/28/19 00:00 78 02/27/19 23:00 87 18 156/75 (102) 100 02/27/19 22:50 80 20 100 T-Piece 8.0 30 75 20 100 02/27/19 22:00 74 17 154/105 (121) 100 02/27/19 21:00 95 18 125/103 (110) 100 02/27/19 20:59 93 154/64 02/27/19 20:00 73 02/27/19 20:00 6.0 28 02/27/19 20:00 T-piece 8.0 02/27/19 20:00 97.9 71 18 154/64 (94) 99 02/27/19 19:00 81 20 138/69 (92) 100 02/27/19 18:41 95 20 100 T-Piece 8.0 30 92 20 100 02/27/19 18:40 100 T-Piece 8.0 30 02/27/19 18:40 92 20 100 T-Piece 8.0 30 02/27/19 18:00 77 22 137/60 (85) 99 Critical Care - Subjective ROS Limited/Unobtainable: No FI02: 28 Vent Support Mode: CPAP Vent Tidal Volume: 450 Sputum Amount: Small PEEP: 5.0 PIP: 19 Tube Feeding Amount: 35 I&O: Intake and Output 02/27/19 02/28/19 19:00 07:00 Intake Total 520 ml 535 ml Output Total 250 ml 250 ml Balance 270 ml 285 ml Free Water 80 ml IV Total 55 ml 55 ml Tube Feeding 385 ml 420 ml Other 60 ml Output Urine Total 250 ml 250 ml # Voids 2 # Bowel Movements 2 ET-Tube: 6.0 Bg Moffett MD Feb 28, 2019 17:01
--- NOTE | 2019-02-28 17:11 | General Progress Note ---
Assessment/Plan Status: stable, progressing Assessment/Plan: Assessment - N/V, periodic - suspect due to gastroparesis - will hold off on G to J conversion per daughter request - Elevated Alk phos / LFT - CT negative - abd U/S negative - check hepatitis serologies - negative - Anemia with OB (-) stools - Resp failure, s/p Trach - dysphagia, s/p PEG - OBS - minor GT tract inflammation / infection - poor Px Recommendations - laxative PRN - antibiotic ointment to GT site - continue TF - aspiration precautions - elevate HOB - PPI Subjective Allergies: Coded Allergies: CODEINE (Verified Allergy, Unknown, HIVES, 09/15/09) Subjective Seen in ICU tolerating TF d/w RN - reports a minor amount of GT site discharge Objective Last 24 Hour Vital Signs Date Time Temp Pulse Resp B/P (MAP) Pulse Ox O2 Delivery O2 Flow Rate FiO2 02/28/19 16:00 T-piece 8.0 02/28/19 16:00 6.0 28 02/28/19 16:00 69 19 104/45 (64) 100 02/28/19 15:00 65 21 101/49 (66) 100 02/28/19 14:43 69 20 100 T-Piece 8.0 30 68 20 99 02/28/19 14:00 62 21 140/54 (82) 100 02/28/19 13:00 69 21 143/61 (88) 100 02/28/19 12:41 100 T-Piece 8.0 30 02/28/19 12:00 6.0 28 02/28/19 12:00 83 02/28/19 12:00 T-piece 8.0 02/28/19 12:00 98.5 80 22 145/64 (91) 100 02/28/19 11:22 64 20 100 T-Piece 8.0 30 60 20 100 02/28/19 11:00 61 21 109/57 (74) 100 02/28/19 10:00 63 22 115/50 (71) 100 02/28/19 09:52 64 20 100 T-Piece 8.0 30 64 20 100 02/28/19 09:00 74 24 146/73 (97) 100 02/28/19 08:49 76 117/77 02/28/19 08:00 T-piece 8.0 02/28/19 08:00 66 02/28/19 08:00 98.5 76 23 117/77 (90) 100 02/28/19 08:00 6.0 28 02/28/19 07:19 64 20 100 T-Piece 8.0 30 67 20 97 02/28/19 07:05 67 20 97 T-Piece 8.0 30 02/28/19 07:05 97 T-Piece 8.0 30 02/28/19 07:00 72 11 102/44 (63) 96 02/28/19 06:00 75 20 138/52 (80) 100 02/28/19 05:00 81 23 151/64 (93) 99 02/28/19 04:00 T-piece 8.0 02/28/19 04:00 6.0 28 02/28/19 04:00 97.6 77 18 151/66 (94) 98 02/28/19 04:00 74 02/28/19 03:00 83 16 158/60 (92) 99 02/28/19 02:33 82 20 100 T-Piece 8.0 30 80 20 100 02/28/19 02:00 70 19 139/64 (89) 100 02/28/19 01:00 72 23 160/64 (96) 97 02/28/19 00:18 100 T-Piece 8.0 30 02/28/19 00:00 T-piece 8.0 02/28/19 00:00 97.7 75 24 158/72 (100) 100 02/28/19 00:00 6.0 28 02/28/19 00:00 78 02/27/19 23:00 87 18 156/75 (102) 100 02/27/19 22:50 80 20 100 T-Piece 8.0 30 75 20 100 02/27/19 22:00 74 17 154/105 (121) 100 02/27/19 21:00 95 18 125/103 (110) 100 02/27/19 20:59 93 154/64 02/27/19 20:00 73 02/27/19 20:00 6.0 28 02/27/19 20:00 T-piece 8.0 02/27/19 20:00 97.9 71 18 154/64 (94) 99 02/27/19 19:00 81 20 138/69 (92) 100 02/27/19 18:41 95 20 100 T-Piece 8.0 30 92 20 100 02/27/19 18:40 100 T-Piece 8.0 30 02/27/19 18:40 92 20 100 T-Piece 8.0 30 02/27/19 18:00 77 22 137/60 (85) 99 Intake and Output 02/27/19 02/28/19 19:00 07:00 Intake Total 520 ml 535 ml Output Total 250 ml 250 ml Balance 270 ml 285 ml Free Water 80 ml IV Total 55 ml 55 ml Tube Feeding 385 ml 420 ml Other 60 ml Output Urine Total 250 ml 250 ml # Voids 2 # Bowel Movements 2 Height (Feet): 5 Height (Inches): 5.00 Weight (Pounds): 180 Objective Debilitated AA woman NCAT (+) trach coarse ronchi RR obese abd, (+) GT - minimal mucoid d/c at GT site no edema Celio Vaughan MD Feb 28, 2019 17:11
--- NOTE | 2019-02-28 17:58 | Nephrology Progress Note ---
Assessment/Plan Problem List: (1) Acute renal failure (ARF) Assessment: Cr stable (2) Chronic respiratory failure (3) Anemia (4) Sepsis Assessment Acute renal failure Respiratory failure - Trach Low Mag- Low k , Low Na Anemia UTI / Sepsis Proteinuria / HypoAlbuminemia high Trigs Sz decubs bed bound DNR Plan no labs today K and Mag and Phos supplement as needed Hydrate Urine studies avoid Nephrotoxics mag K Phos supplements as needed monitor renal parameters Subjective ROS Limited/Unobtainable: Yes Objective Objective Last 24 Hour Vital Signs Date Time Temp Pulse Resp B/P (MAP) Pulse Ox O2 Delivery O2 Flow Rate FiO2 02/28/19 16:00 T-piece 8.0 02/28/19 16:00 6.0 28 02/28/19 16:00 69 19 104/45 (64) 100 02/28/19 16:00 69 02/28/19 15:00 65 21 101/49 (66) 100 02/28/19 14:43 69 20 100 T-Piece 8.0 30 68 20 99 02/28/19 14:00 62 21 140/54 (82) 100 02/28/19 13:00 69 21 143/61 (88) 100 02/28/19 12:41 100 T-Piece 8.0 30 02/28/19 12:00 6.0 28 02/28/19 12:00 83 02/28/19 12:00 T-piece 8.0 02/28/19 12:00 98.5 80 22 145/64 (91) 100 02/28/19 11:22 64 20 100 T-Piece 8.0 30 60 20 100 02/28/19 11:00 61 21 109/57 (74) 100 02/28/19 10:00 63 22 115/50 (71) 100 02/28/19 09:52 64 20 100 T-Piece 8.0 30 64 20 100 02/28/19 09:00 74 24 146/73 (97) 100 02/28/19 08:49 76 117/77 02/28/19 08:00 T-piece 8.0 02/28/19 08:00 66 02/28/19 08:00 98.5 76 23 117/77 (90) 100 02/28/19 08:00 6.0 28 02/28/19 07:19 64 20 100 T-Piece 8.0 30 67 20 97 02/28/19 07:05 67 20 97 T-Piece 8.0 30 02/28/19 07:05 97 T-Piece 8.0 30 02/28/19 07:00 72 11 102/44 (63) 96 02/28/19 06:00 75 20 138/52 (80) 100 02/28/19 05:00 81 23 151/64 (93) 99 02/28/19 04:00 T-piece 8.0 02/28/19 04:00 6.0 28 02/28/19 04:00 97.6 77 18 151/66 (94) 98 02/28/19 04:00 74 02/28/19 03:00 83 16 158/60 (92) 99 02/28/19 02:33 82 20 100 T-Piece 8.0 30 80 20 100 02/28/19 02:00 70 19 139/64 (89) 100 02/28/19 01:00 72 23 160/64 (96) 97 02/28/19 00:18 100 T-Piece 8.0 30 02/28/19 00:00 T-piece 8.0 02/28/19 00:00 97.7 75 24 158/72 (100) 100 02/28/19 00:00 6.0 28 02/28/19 00:00 78 02/27/19 23:00 87 18 156/75 (102) 100 02/27/19 22:50 80 20 100 T-Piece 8.0 30 75 20 100 02/27/19 22:00 74 17 154/105 (121) 100 02/27/19 21:00 95 18 125/103 (110) 100 02/27/19 20:59 93 154/64 02/27/19 20:00 73 02/27/19 20:00 6.0 28 02/27/19 20:00 T-piece 8.0 02/27/19 20:00 97.9 71 18 154/64 (94) 99 02/27/19 19:00 81 20 138/69 (92) 100 02/27/19 18:41 95 20 100 T-Piece 8.0 30 92 20 100 02/27/19 18:40 100 T-Piece 8.0 30 02/27/19 18:40 92 20 100 T-Piece 8.0 30 02/27/19 18:00 77 22 137/60 (85) 99 Intake and Output 02/27/19 02/28/19 19:00 07:00 Intake Total 520 ml 535 ml Output Total 250 ml 250 ml Balance 270 ml 285 ml Free Water 80 ml IV Total 55 ml 55 ml Tube Feeding 385 ml 420 ml Other 60 ml Output Urine Total 250 ml 250 ml # Voids 2 # Bowel Movements 2 Height (Feet): 5 Height (Inches): 5.00 Weight (Pounds): 180 General Appearance: no apparent distress EENT: other - trach Respiratory/Chest: decreased breath sounds Abdomen: distended Objective no change Eric Cortez MD Feb 28, 2019 17:58
[2019-02-28] MEDS: Bacitracin Oint 15gm Tube TOPIC SCH (18:32)
--- NOTE | 2019-02-28 19:26 | NUR ---
HAND-OFF: Report given to Sajan Riley RN.
[2019-02-28] MEDS: Dyna-Hex 2% Top Sol 2oz TOPIC SCH (20:00)
--- NOTE | 2019-02-28 20:00 | NUR ---
NURSE NOTES: received pt obtunded does not follows command upper extremities contracted both upper and lower extremities no movement trach shiley 6-t-piece 28 o/0 o2 sat 100 0/o HAD BM LARGE COMPLETE BED BATH REPOSITION suction
--- NOTE | 2019-02-28 22:00 | NUR ---
NURSE NOTES: tolerating tube feeding no acute distress noted
[2019-03-01] VITALS (24 sets, daily range): BP systolic 90–149; BP diastolic 38–82
--- NOTE | 2019-03-01 | NUR ---
NURSE NOTES: complete bed bath reposition AND SUCTION
--- NOTE | 2019-03-01 02:00 | NUR ---
NURSE NOTES: NO ACUTE RESP DISTRESS SUCTION AND REPOSITION
[2019-03-01] MEDS: Acetylcysteine 20% Soln 4ml HHN SCH ×6 (03:00→22:34)
[2019-03-01] MEDS: Albuterol/Ipratropium 3ml neb HHN SCH ×6 (03:42→22:34)
--- NOTE | 2019-03-01 04:00 | NUR ---
NURSE NOTES: reposition and suction
--- NOTE | 2019-03-01 06:53 | NUR ---
Report given to [].
--- NOTE | 2019-03-01 06:55 | NUR ---
HAND-OFF: Report given to ELADIO. USING SBAR
--- NOTE | 2019-03-01 06:59 | NUR ---
NURSE NOTES: RECEIVED PATIENT FROM Carlton ANGELES RN. PATIENT IS LYING IN BED ASLEEP. HOOKED TO PROJECT DEVELOPMENT ENGINEER. TRACH ON SHILEY 6, TPIECE AT 28%, 6L. NO SIGNS OF DISTRESS OF THE MOMENT. NOTED COPIOUS AMOUNT OF WHITE THICK SECRETION. RUNNING GTF GLUCERNA 1.5 AT 35ML/HR. PUREWICK NOTED. SKIN ALTERATION NOTED. ON OVERLAY MATTRESS. WITH R UA PICC LINE, DRESSING DRY AND INTACT. CALL LIGHT WITHIN REACH. BED AT LOWEST POSITION. SIRE RAILS UP. WILL CONTINUE TO MONITOR.
[2019-03-01] MEDS: Meropenem 1 GM in NS 55 ML IVPB SCH ×2 (08:24→20:53)
[2019-03-01] MEDS: levETIRAcetam 500mg/5ml Liquid GT SCH ×2 (08:24→20:52)
[2019-03-01] MEDS: Pantoprazole Inj IVP SCH ×2 (08:24→20:53)
[2019-03-01] MEDS: Bacitracin Oint 15gm Tube TOPIC SCH ×3 (08:25→17:17)
[2019-03-01] MEDS: Heparin 5000 units/ml inj SUBQ SCH ×2 (08:27→20:56)
--- NOTE | 2019-03-01 08:51 | General Progress Note ---
Assessment/Plan Problem List: (1) Seizure ICD Codes: R56.9 - Unspecified convulsions SNOMED: 28364926 (2) Anemia ICD Codes: D64.9 - Anemia, unspecified SNOMED: 131660548 Qualifiers: Qualified Codes: D64.9 - Anemia, unspecified (3) Sepsis ICD Codes: A41.9 - Sepsis, unspecified organism SNOMED: 82140631, 680800203 Qualifiers: Qualified Codes: A41.9 - Sepsis, unspecified organism (4) Respiratory failure with hypoxia ICD Codes: J96.91 - Respiratory failure, unspecified with hypoxia SNOMED: 39327433981753920 Qualifiers: Qualified Codes: J96.21 - Acute and chronic respiratory failure with hypoxia (5) HCAP (healthcare-associated pneumonia) ICD Codes: J18.9 - Pneumonia, unspecified organism SNOMED: 170856268, 095115727 (6) Sacral decubitus ulcer ICD Codes: L89.159 - Pressure ulcer of sacral region, unspecified stage SNOMED: 266951068 (7) HTN (hypertension) ICD Codes: I10 - Essential (primary) hypertension SNOMED: 96554249 (8) Chronic vegetative state ICD Codes: R40.3 - Persistent vegetative state SNOMED: 05229196 (9) Chronic respiratory failure ICD Codes: J96.10 - Chronic respiratory failure, unspecified whether with hypoxia or hypercapnia SNOMED: 87781597 (10) Limited mobility ICD Codes: Z74.09 - Other reduced mobility SNOMED: 3876362 Status: stable, progressing Assessment/Plan: vent prn as needed resp rx suctioning as needed gt feeds monitor for vomiting bowel regime monitor residuals sx rx monitor bp may need to decrease bp meds transfuse prn dc planning Subjective ROS Limited/Unobtainable: No Constitutional: Reports: malaise, weakness HEENT: Reports: no symptoms Cardiovascular: Reports: no symptoms Respiratory: Reports: no symptoms, shortness of breath, sputum Gastrointestinal/Abdominal: Reports: difficulty swallowing Genitourinary: Reports: no symptoms Neurologic/Psychiatric: Reports: paresthesia, pre-existing deficit Endocrine: Reports: no symptoms Hematologic/Lymphatic: Reports: no symptoms Allergies: Coded Allergies: CODEINE (Verified Allergy, Unknown, HIVES, 09/15/09) All Systems: reviewed and negative except above Subjective no events. remains on the vent. intermittently congested. no fever or chills. overall the same sputum neg for kpc. bp on the low side Objective Last 24 Hour Vital Signs Date Time Temp Pulse Resp B/P (MAP) Pulse Ox O2 Delivery O2 Flow Rate FiO2 03/01/19 08:24 78 90/45 03/01/19 08:00 6.0 28 03/01/19 08:00 98.3 80 22 90/45 (60) 96 03/01/19 07:14 100 T-Piece 8.0 30 03/01/19 07:13 82 22 100 T-Piece 8.0 30 88 22 97 03/01/19 07:11 75 22 97 T-Piece 8.0 30 03/01/19 07:00 73 20 133/45 (74) 97 03/01/19 06:00 69 21 112/46 (68) 99 03/01/19 05:00 77 22 140/54 (82) 100 03/01/19 04:00 6.0 28 03/01/19 04:00 98.3 70 20 136/50 (78) 100 03/01/19 04:00 T-piece 8.0 03/01/19 04:00 74 03/01/19 03:43 68 20 100 T-Piece 8.0 30 71 21 99 03/01/19 03:00 69 19 145/49 (81) 100 03/01/19 02:00 68 21 143/56 (85) 100 03/01/19 01:25 100 T-Piece 8.0 30 03/01/19 01:00 67 20 135/46 (75) 100 03/01/19 00:00 6.0 28 03/01/19 00:00 T-piece 8.0 03/01/19 00:00 98.4 67 17 139/61 (87) 100 67 03/01/19 00:00 65 03/01/19 00:00 88 22 142/71 (94) 99 88 02/28/19 23:00 88 22 142/71 (94) 99 88 02/28/19 22:30 64 19 100 T-Piece 8.0 30 69 20 99 02/28/19 22:20 69 18 100 T-Piece 8.0 30 65 20 100 02/28/19 22:00 67 16 125/64 (84) 100 75 02/28/19 21:00 73 21 134/55 (81) 100 73 02/28/19 20:54 73 134/55 02/28/19 20:00 T-piece 8.0 02/28/19 20:00 75 02/28/19 20:00 6.0 28 02/28/19 20:00 98.4 69 134/55 (81) 100 75 02/28/19 19:05 64 21 99 T-Piece 8.0 30 02/28/19 19:05 99 T-Piece 8.0 30 02/28/19 19:04 78 20 100 T-Piece 8.0 30 64 21 99 02/28/19 19:00 67 21 126/57 (80) 99 02/28/19 18:00 64 22 114/51 (72) 100 02/28/19 17:00 88 17 146/66 (92) 98 02/28/19 16:00 T-piece 8.0 02/28/19 16:00 98.0 02/28/19 16:00 6.0 28 02/28/19 16:00 69 19 104/45 (64) 100 02/28/19 16:00 69 02/28/19 15:00 65 21 101/49 (66) 100 02/28/19 14:43 69 20 100 T-Piece 8.0 30 68 20 99 02/28/19 14:00 62 21 140/54 (82) 100 02/28/19 13:00 69 21 143/61 (88) 100 02/28/19 12:41 100 T-Piece 8.0 30 02/28/19 12:00 6.0 28 02/28/19 12:00 83 02/28/19 12:00 T-piece 8.0 02/28/19 12:00 98.5 80 22 145/64 (91) 100 02/28/19 11:22 64 20 100 T-Piece 8.0 30 60 20 100 02/28/19 11:00 61 21 109/57 (74) 100 02/28/19 10:00 63 22 115/50 (71) 100 02/28/19 09:52 64 20 100 T-Piece 8.0 30 64 20 100 02/28/19 09:00 74 24 146/73 (97) 100 Intake and Output 02/28/19 03/01/19 19:00 07:00 Intake Total 630 ml 490 ml Output Total 300 ml 750 ml Balance 330 ml -260 ml Free Water 100 ml 50 ml IV Total 110 ml 55 ml Tube Feeding 420 ml 385 ml Output Urine Total 300 ml 750 ml # Bowel Movements 2 Height (Feet): 5 Height (Inches): 5.00 Weight (Pounds): 180 Objective General Appearance: WD/WN, confused. on trach collar Neck: supple Cardiovascular: normal rate, regular rhythm Respiratory/Chest: chest wall non-tender, rhonchi - bilaterally(minimal) Abdomen: normal bowel sounds, non tender, soft, no organomegaly Edema: no edema noted Arm (L), no edema noted Arm (R), no edema noted Leg (L), no edema noted Leg (R), no edema noted Pedal (L), no edema noted Pedal (R), no edema noted Generalized Neurologic: disoriented, unresponsive, aphasia Irvin Beltrán MD Mar 01, 2019 08:51
--- NOTE | 2019-03-01 09:14 | Nephrology Progress Note ---
Assessment/Plan Problem List: (1) Acute renal failure (ARF) Assessment: Cr stable (2) Chronic respiratory failure (3) Anemia (4) Sepsis Assessment Acute renal failure Respiratory failure - Trach Low Mag- Low k , Low Na Anemia UTI / Sepsis Proteinuria / HypoAlbuminemia high Trigs Sz decubs bed bound DNR Plan no labs today K and Mag and Phos supplement as needed Hydrate Urine studies avoid Nephrotoxics mag K Phos supplements as needed monitor renal parameters Subjective ROS Limited/Unobtainable: Yes Objective Objective Last 24 Hour Vital Signs Date Time Temp Pulse Resp B/P (MAP) Pulse Ox O2 Delivery O2 Flow Rate FiO2 03/01/19 08:24 78 90/45 03/01/19 08:00 6.0 28 03/01/19 08:00 98.3 80 22 90/45 (60) 96 03/01/19 07:14 100 T-Piece 8.0 30 03/01/19 07:13 82 22 100 T-Piece 8.0 30 88 22 97 03/01/19 07:11 75 22 97 T-Piece 8.0 30 03/01/19 07:00 73 20 133/45 (74) 97 03/01/19 06:00 69 21 112/46 (68) 99 03/01/19 05:00 77 22 140/54 (82) 100 03/01/19 04:00 6.0 28 03/01/19 04:00 98.3 70 20 136/50 (78) 100 03/01/19 04:00 T-piece 8.0 03/01/19 04:00 74 03/01/19 03:43 68 20 100 T-Piece 8.0 30 71 21 99 03/01/19 03:00 69 19 145/49 (81) 100 03/01/19 02:00 68 21 143/56 (85) 100 03/01/19 01:25 100 T-Piece 8.0 30 03/01/19 01:00 67 20 135/46 (75) 100 03/01/19 00:00 6.0 28 03/01/19 00:00 T-piece 8.0 03/01/19 00:00 98.4 67 17 139/61 (87) 100 67 03/01/19 00:00 65 03/01/19 00:00 88 22 142/71 (94) 99 88 02/28/19 23:00 88 22 142/71 (94) 99 88 02/28/19 22:30 64 19 100 T-Piece 8.0 30 69 20 99 02/28/19 22:20 69 18 100 T-Piece 8.0 30 65 20 100 02/28/19 22:00 67 16 125/64 (84) 100 75 02/28/19 21:00 73 21 134/55 (81) 100 73 02/28/19 20:54 73 134/55 02/28/19 20:00 T-piece 8.0 02/28/19 20:00 75 02/28/19 20:00 6.0 28 02/28/19 20:00 98.4 69 134/55 (81) 100 75 02/28/19 19:05 64 21 99 T-Piece 8.0 30 02/28/19 19:05 99 T-Piece 8.0 30 02/28/19 19:04 78 20 100 T-Piece 8.0 30 64 21 99 02/28/19 19:00 67 21 126/57 (80) 99 02/28/19 18:00 64 22 114/51 (72) 100 02/28/19 17:00 88 17 146/66 (92) 98 02/28/19 16:00 T-piece 8.0 02/28/19 16:00 98.0 02/28/19 16:00 6.0 28 02/28/19 16:00 69 19 104/45 (64) 100 02/28/19 16:00 69 02/28/19 15:00 65 21 101/49 (66) 100 02/28/19 14:43 69 20 100 T-Piece 8.0 30 68 20 99 02/28/19 14:00 62 21 140/54 (82) 100 02/28/19 13:00 69 21 143/61 (88) 100 02/28/19 12:41 100 T-Piece 8.0 30 02/28/19 12:00 6.0 28 02/28/19 12:00 83 02/28/19 12:00 T-piece 8.0 02/28/19 12:00 98.5 80 22 145/64 (91) 100 02/28/19 11:22 64 20 100 T-Piece 8.0 30 60 20 100 02/28/19 11:00 61 21 109/57 (74) 100 02/28/19 10:00 63 22 115/50 (71) 100 02/28/19 09:52 64 20 100 T-Piece 8.0 30 64 20 100 Intake and Output 02/28/19 03/01/19 19:00 07:00 Intake Total 630 ml 490 ml Output Total 300 ml 750 ml Balance 330 ml -260 ml Free Water 100 ml 50 ml IV Total 110 ml 55 ml Tube Feeding 420 ml 385 ml Output Urine Total 300 ml 750 ml # Bowel Movements 2 Height (Feet): 5 Height (Inches): 5.00 Weight (Pounds): 180 General Appearance: no apparent distress EENT: other - trach Cardiovascular: normal rate Respiratory/Chest: decreased breath sounds Abdomen: soft Objective no change Eric Cortez MD Mar 01, 2019 09:14
[2019-03-01] MEDS: Amikacin for Inhalation 2ML INH SCH ×2 (09:17→22:34)
--- NOTE | 2019-03-01 09:17 | General Progress Note ---
Assessment/Plan Status: stable, progressing Assessment/Plan: Assessment - N/V, periodic - suspect due to gastroparesis - will hold off on G to J conversion per daughter request - Elevated Alk phos / LFT - CT negative - abd U/S negative - check hepatitis serologies - negative - Anemia with OB (-) stools - Resp failure, s/p Trach - dysphagia, s/p PEG - OBS - minor GT tract inflammation / infection - poor Px Recommendations - laxative PRN - antibiotic ointment to GT site - continue TF - aspiration precautions - elevate HOB - PPI Subjective Allergies: Coded Allergies: CODEINE (Verified Allergy, Unknown, HIVES, 09/15/09) Subjective Seen in ICU tolerating TF d/w RN Objective Last 24 Hour Vital Signs Date Time Temp Pulse Resp B/P (MAP) Pulse Ox O2 Delivery O2 Flow Rate FiO2 03/01/19 09:13 77 22 99 T-Piece 8.0 30 79 22 96 03/01/19 08:24 78 90/45 03/01/19 08:00 6.0 28 03/01/19 08:00 98.3 80 22 90/45 (60) 96 03/01/19 07:14 100 T-Piece 8.0 30 03/01/19 07:13 82 22 100 T-Piece 8.0 30 88 22 97 03/01/19 07:11 75 22 97 T-Piece 8.0 30 03/01/19 07:00 73 20 133/45 (74) 97 03/01/19 06:00 69 21 112/46 (68) 99 03/01/19 05:00 77 22 140/54 (82) 100 03/01/19 04:00 6.0 28 03/01/19 04:00 98.3 70 20 136/50 (78) 100 03/01/19 04:00 T-piece 8.0 03/01/19 04:00 74 03/01/19 03:43 68 20 100 T-Piece 8.0 30 71 21 99 03/01/19 03:00 69 19 145/49 (81) 100 03/01/19 02:00 68 21 143/56 (85) 100 03/01/19 01:25 100 T-Piece 8.0 30 03/01/19 01:00 67 20 135/46 (75) 100 03/01/19 00:00 6.0 28 03/01/19 00:00 T-piece 8.0 03/01/19 00:00 98.4 67 17 139/61 (87) 100 67 03/01/19 00:00 65 03/01/19 00:00 88 22 142/71 (94) 99 88 02/28/19 23:00 88 22 142/71 (94) 99 88 02/28/19 22:30 64 19 100 T-Piece 8.0 30 69 20 99 02/28/19 22:20 69 18 100 T-Piece 8.0 30 65 20 100 02/28/19 22:00 67 16 125/64 (84) 100 75 02/28/19 21:00 73 21 134/55 (81) 100 73 02/28/19 20:54 73 134/55 02/28/19 20:00 T-piece 8.0 02/28/19 20:00 75 02/28/19 20:00 6.0 28 02/28/19 20:00 98.4 69 134/55 (81) 100 75 02/28/19 19:05 64 21 99 T-Piece 8.0 30 02/28/19 19:05 99 T-Piece 8.0 30 02/28/19 19:04 78 20 100 T-Piece 8.0 30 64 21 99 02/28/19 19:00 67 21 126/57 (80) 99 02/28/19 18:00 64 22 114/51 (72) 100 02/28/19 17:00 88 17 146/66 (92) 98 02/28/19 16:00 T-piece 8.0 02/28/19 16:00 98.0 02/28/19 16:00 6.0 28 02/28/19 16:00 69 19 104/45 (64) 100 02/28/19 16:00 69 02/28/19 15:00 65 21 101/49 (66) 100 02/28/19 14:43 69 20 100 T-Piece 8.0 30 68 20 99 02/28/19 14:00 62 21 140/54 (82) 100 02/28/19 13:00 69 21 143/61 (88) 100 02/28/19 12:41 100 T-Piece 8.0 30 02/28/19 12:00 6.0 28 02/28/19 12:00 83 02/28/19 12:00 T-piece 8.0 02/28/19 12:00 98.5 80 22 145/64 (91) 100 02/28/19 11:22 64 20 100 T-Piece 8.0 30 60 20 100 02/28/19 11:00 61 21 109/57 (74) 100 02/28/19 10:00 63 22 115/50 (71) 100 02/28/19 09:52 64 20 100 T-Piece 8.0 30 64 20 100 Intake and Output 02/28/19 03/01/19 19:00 07:00 Intake Total 630 ml 490 ml Output Total 300 ml 750 ml Balance 330 ml -260 ml Free Water 100 ml 50 ml IV Total 110 ml 55 ml Tube Feeding 420 ml 385 ml Output Urine Total 300 ml 750 ml # Bowel Movements 2 Height (Feet): 5 Height (Inches): 5.00 Weight (Pounds): 180 Objective Debilitated AA woman NCAT (+) trach coarse ronchi RR obese abd, (+) GT - minimal mucoid d/c at GT site no edema Celio Vaughan MD Mar 01, 2019 09:17
--- NOTE | 2019-03-01 09:30 | NUR ---
NURSE NOTES: SEEN AND EXAMINED BY DR HER. NNO. WILL CONTINUE TO MONITOR.
[2019-03-01 10:00] LABS: BASOPHILS % (AUTO) 0.9 % (0.0-2.0); EOSINOPHILS % (AUTO) 4.5 % (0.0-3.0); HEMATOCRIT 29.9 % (37.0-47.0); HEMOGLOBIN 9.5 G/DL (12.0-16.0); MEAN CORPUSCULAR VOLUME 86 FL (80-99); MONOCYTES % (AUTO) 7.1 % (1.0-10.0); NEUTROPHILS % (AUTO) 55.6 % (45.0-75.0); PLATELET COUNT 205 K/UL (150-450); RED BLOOD COUNT 3.45 M/UL (4.20-5.40); WHITE BLOOD COUNT 8.5 K/UL (4.8-10.8)
--- NOTE | 2019-03-01 10:12 | NUR ---
NURSE NOTES: Called [facility] to inquire regarding the bed situation for Ms. Horton. Patient is currently still waiting for a female bed for subacute. No beds available at this time. Called daughter as well. Daughter stated that she would also try to speak to Director of the facility. She did go see [facility] however, this is not suitable for subacute for her mother. She will attempt [facility] and [facility] next week to request SNF transfer rather than later. Will endorse to PM charge. Informed Flooring Grader.
[2019-03-01 10:24] LABS: ALANINE AMINOTRANSFERASE 23 U/L (12-78); ALBUMIN 2.7 G/DL (3.4-5.0); ALBUMIN/GLOBULIN RATIO 0.5 (1.0-2.7); ALKALINE PHOSPHATASE 116 U/L (46-116); ANION GAP 5 mmol/L (5-15); ASPARTATE AMINO TRANSFERASE 24 U/L (15-37); BILIRUBIN,TOTAL 0.2 MG/DL (0.2-1.0); BLOOD UREA NITROGEN 32 mg/dL (7-18); CALCIUM 8.9 MG/DL (8.5-10.1); CARBON DIOXIDE 30 MMOL/L (21-32); CHLORIDE 109 MMOL/L (98-107); CREATININE 1.1 MG/DL (0.55-1.30); POTASSIUM 5.1 MMOL/L (3.5-5.1); SODIUM 144 MMOL/L (136-145)
--- NOTE | 2019-03-01 11:13 | Infectious Diseases Prog Note ---
Assessment/Plan Assessment/Plan A 1. Acinetobacter, Enterobacter, pseudomonas & Klebsiella pneumonia 2. respiratory failure 3. hypertension 4. CVA 5. dementia 6. sacral decubitus ulcer 7. rectal VRE colonization 8. Anemia 9. Proteus UTI 10. Acute renal failure 11. Leukocytosis P 1.continue Meropenem & Amikacin inhaler 2. Frequent suctioning Subjective ROS Limited/Unobtainable: Yes Constitutional: Denies: fever Allergies: Coded Allergies: CODEINE (Verified Allergy, Unknown, HIVES, 09/15/09) Objective Vital Signs Last 24 Hour Vital Signs Date Time Temp Pulse Resp B/P (MAP) Pulse Ox O2 Delivery O2 Flow Rate FiO2 03/01/19 10:57 74 23 99 T-Piece 8.0 30 72 23 99 03/01/19 10:00 76 21 97/44 (61) 97 03/01/19 10:00 76 21 97/44 (61) 97 03/01/19 09:13 77 22 99 T-Piece 8.0 30 79 22 96 03/01/19 09:00 78 22 97/45 (62) 95 03/01/19 08:24 78 90/45 03/01/19 08:00 6.0 28 03/01/19 08:00 98.3 80 22 90/45 (60) 96 03/01/19 08:00 T-piece 8.0 03/01/19 07:14 100 T-Piece 8.0 30 03/01/19 07:13 82 22 100 T-Piece 8.0 30 88 22 97 03/01/19 07:11 75 22 97 T-Piece 8.0 30 03/01/19 07:00 73 20 133/45 (74) 97 03/01/19 06:00 69 21 112/46 (68) 99 03/01/19 05:00 77 22 140/54 (82) 100 03/01/19 04:00 6.0 28 03/01/19 04:00 98.3 70 20 136/50 (78) 100 03/01/19 04:00 T-piece 8.0 03/01/19 04:00 74 03/01/19 03:43 68 20 100 T-Piece 8.0 30 71 21 99 03/01/19 03:00 69 19 145/49 (81) 100 12/1/19 02:00 68 21 143/56 (85) 100 03/01/19 01:25 100 T-Piece 8.0 30 03/01/19 01:00 67 20 135/46 (75) 100 03/01/19 00:00 6.0 28 03/01/19 00:00 T-piece 8.0 03/01/19 00:00 98.4 67 17 139/61 (87) 100 67 03/01/19 00:00 65 03/01/19 00:00 88 22 142/71 (94) 99 88 02/28/19 23:00 88 22 142/71 (94) 99 88 02/28/19 22:30 64 19 100 T-Piece 8.0 30 69 20 99 02/28/19 22:20 69 18 100 T-Piece 8.0 30 65 20 100 02/28/19 22:00 67 16 125/64 (84) 100 75 02/28/19 21:00 73 21 134/55 (81) 100 73 02/28/19 20:54 73 134/55 02/28/19 20:00 T-piece 8.0 02/28/19 20:00 75 02/28/19 20:00 6.0 28 02/28/19 20:00 98.4 69 134/55 (81) 100 75 02/28/19 19:05 64 21 99 T-Piece 8.0 30 02/28/19 19:05 99 T-Piece 8.0 30 02/28/19 19:04 78 20 100 T-Piece 8.0 30 64 21 99 02/28/19 19:00 67 21 126/57 (80) 99 02/28/19 18:00 64 22 114/51 (72) 100 02/28/19 17:00 88 17 146/66 (92) 98 02/28/19 16:00 T-piece 8.0 02/28/19 16:00 98.0 02/28/19 16:00 6.0 28 02/28/19 16:00 69 19 104/45 (64) 100 02/28/19 16:00 69 02/28/19 15:00 65 21 101/49 (66) 100 02/28/19 14:43 69 20 100 T-Piece 8.0 30 68 20 99 02/28/19 14:00 62 21 140/54 (82) 100 02/28/19 13:00 69 21 143/61 (88) 100 02/28/19 12:41 100 T-Piece 8.0 30 02/28/19 12:00 6.0 28 02/28/19 12:00 83 02/28/19 12:00 T-piece 8.0 02/28/19 12:00 98.5 80 22 145/64 (91) 100 02/28/19 11:22 64 20 100 T-Piece 8.0 30 60 20 100 Height (Feet): 5 Height (Inches): 5.00 Weight (Pounds): 180 HEENT: status post trach Respiratory/Chest: rhonchi - bilaterally, other - on T bar Cardiovascular: normal rate Abdomen: soft, non tender, other - disharge around GT Extremities: no edema, other - bilateral foot drop Skin: ulcers, other - sacral Neurologic/Psychiatric: aphasia Laboratory Tests Test 03/01/19 09:35 White Blood Count 8.5 K/UL (4.8-10.8) Red Blood Count 3.45 M/UL (4.20-5.40) L Hemoglobin 9.5 G/DL (12.0-16.0) L Hematocrit 29.9 % (37.0-47.0) L Mean Corpuscular Volume 86 FL (80-99) Mean Corpuscular Hemoglobin 27.4 PG (27.0-31.0) Mean Corpuscular Hemoglobin Concent 31.7 G/DL (32.0-36.0) L Red Cell Distribution Width 17.0 % (11.6-14.8) H Platelet Count 205 K/UL (150-450) Mean Platelet Volume 5.8 FL (6.5-10.1) L Neutrophils (%) (Auto) 55.6 % (45.0-75.0) Lymphocytes (%) (Auto) 32.0 % (20.0-45.0) Monocytes (%) (Auto) 7.1 % (1.0-10.0) Eosinophils (%) (Auto) 4.5 % (0.0-3.0) H Basophils (%) (Auto) 0.9 % (0.0-2.0) Sodium Level 144 MMOL/L (136-145) Potassium Level 5.1 MMOL/L (3.5-5.1) Chloride Level 109 MMOL/L (98-107) H Carbon Dioxide Level 30 MMOL/L (21-32) Anion Gap 5 mmol/L (5-15) Blood Urea Nitrogen 32 mg/dL (7-18) H Creatinine 1.1 MG/DL (0.55-1.30) Estimat Glomerular Filtration Rate mL/min (>60) Glucose Level 118 MG/DL (74-106) H Calcium Level 8.9 MG/DL (8.5-10.1) Total Bilirubin 0.2 MG/DL (0.2-1.0) Aspartate Amino Transf (AST/SGOT) 24 U/L (15-37) Alanine Aminotransferase (ALT/SGPT) 23 U/L (12-78) Alkaline Phosphatase 116 U/L (46-116) Total Protein 8.3 G/DL (6.4-8.2) H Albumin 2.7 G/DL (3.4-5.0) L Globulin 5.6 g/dL Albumin/Globulin Ratio 0.5 (1.0-2.7) L Current Medications Medications (Trade) Dose Ordered Sig/Maicol Route PRN Reason Start Time Stop Time Status Last Admin Dose Admin Acetaminophen (Tylenol) 650 mg Q4H PRN GT Mild Pain/Temp > 100.5 02/18/19 05:44 03/05/19 05:43 02/23/19 21:33 Acetylcysteine (Mucomyst) 200 mg Q4HRT [facility] 02/28/19 03:00 03/29/19 16:59 03/01/19 10:59 Albuterol/ Ipratropium (Albuterol/ Ipratropium) 3 ml Q4HRT [facility] 02/27/19 15:00 03/04/19 14:59 03/01/19 10:59 Amikacin Sulfate (Amikin) 500 mg Q12HR@10, INH 02/27/19 22:00 03/06/19 21:59 03/01/19 09:17 Atropine Sulfate (Atropine Opth Adriana) 1 drop TID SL 02/18/19 09:00 03/12/19 09:29 03/01/19 08:26 Bacitracin (Bacitracin 15gm tube) 1 applic THREE TIMES A DAY TOPIC 02/28/19 18:30 03/30/19 18:29 03/01/19 08:25 Chlorhexidine Gluconate (Cesilia-Hex 2%) 1 applic DAILY@2000 TOPIC 02/18/19 20:00 03/12/19 19:59 02/28/19 20:00 Heparin Sodium (Porcine) (Heparin 5000 units/ml) 5,000 units EVERY 12 HOURS SUBQ 02/18/19 09:00 03/16/19 23:14 03/01/19 08:27 Hydralazine HCl (Apresoline) 25 mg Q4H PRN GT SBP above 160 02/18/19 05:46 03/09/19 05:45 02/25/19 02:45 Levetiracetam (Keppra) 750 mg Q12HR GT 02/18/19 09:00 03/16/19 23:29 03/01/19 08:24 Meropenem 1 gm/ Sodium Chloride 55 ml @ 110 mls/hr Q12HR IVPB 02/27/19 11:00 03/04/19 10:59 03/01/19 08:24 Metoclopramide HCl (Reglan) 10 mg Q6H PRN IVP Nausea & Vomiting 02/18/19 05:46 03/09/19 05:45 Metoprolol Tartrate (Lopressor) 25 mg Q12HR GT 02/18/19 09:00 03/16/19 23:29 02/28/19 20:54 Pantoprazole (Protonix) 40 mg Q12HR IVP 02/18/19 09:00 03/16/19 23:29 03/01/19 08:24 Chauncey Liriano MD Mar 01, 2019 11:13
--- NOTE | 2019-03-01 11:30 | NUR ---
NURSE NOTES: SEEN AND EXAMINED BY DR Jm AMARO.
--- NOTE | 2019-03-01 12:54 | NUR ---
NURSE NOTES: TOLERATING GTF AND TPIECE. SATING AT 100%. NO SIGNS OF DISTRESS. WILL CONTINUE TO MONITOR.
--- NOTE | 2019-03-01 13:50 | Surgery Progress Note ---
Surgery Progress Note Subjective Additional Comments No acute events. Pending placement Objective Last 24 Hour Vital Signs Date Time Temp Pulse Resp B/P (MAP) Pulse Ox O2 Delivery O2 Flow Rate FiO2 03/01/19 13:18 98 T-Piece 8.0 30 03/01/19 13:00 74 21 117/50 (72) 100 03/01/19 12:00 6.0 28 03/01/19 12:00 98.7 76 21 130/50 (76) 100 03/01/19 12:00 T-piece 8.0 03/01/19 11:00 73 24 141/68 (92) 99 03/01/19 10:57 74 23 99 T-Piece 8.0 30 72 23 99 03/01/19 10:00 76 21 97/44 (61) 97 03/01/19 09:13 77 22 99 T-Piece 8.0 30 79 22 96 03/01/19 09:00 78 22 97/45 (62) 95 03/01/19 08:24 78 90/45 03/01/19 08:00 6.0 28 03/01/19 08:00 98.3 80 22 90/45 (60) 96 03/01/19 08:00 T-piece 8.0 03/01/19 08:00 78 03/01/19 07:14 100 T-Piece 8.0 30 03/01/19 07:13 82 22 100 T-Piece 8.0 30 88 22 97 03/01/19 07:11 75 22 97 T-Piece 8.0 30 03/01/19 07:00 73 20 133/45 (74) 97 03/01/19 06:00 69 21 112/46 (68) 99 03/01/19 05:00 77 22 140/54 (82) 100 03/01/19 04:00 6.0 28 03/01/19 04:00 98.3 70 20 136/50 (78) 100 03/01/19 04:00 T-piece 8.0 03/01/19 04:00 74 03/01/19 03:43 68 20 100 T-Piece 8.0 30 71 21 99 03/01/19 03:00 69 19 145/49 (81) 100 03/01/19 02:00 68 21 143/56 (85) 100 03/01/19 01:25 100 T-Piece 8.0 30 03/01/19 01:00 67 20 135/46 (75) 100 03/01/19 00:00 6.0 28 03/01/19 00:00 T-piece 8.0 03/01/19 00:00 98.4 67 17 139/61 (87) 100 67 03/01/19 00:00 65 03/01/19 00:00 88 22 142/71 (94) 99 88 02/28/19 23:00 88 22 142/71 (94) 99 88 02/28/19 22:30 64 19 100 T-Piece 8.0 30 69 20 99 02/28/19 22:20 69 18 100 T-Piece 8.0 30 65 20 100 02/28/19 22:00 67 16 125/64 (84) 100 75 02/28/19 21:00 73 21 134/55 (81) 100 73 02/28/19 20:54 73 134/55 02/28/19 20:00 T-piece 8.0 02/28/19 20:00 75 02/28/19 20:00 6.0 28 02/28/19 20:00 98.4 69 134/55 (81) 100 75 02/28/19 19:05 64 21 99 T-Piece 8.0 30 02/28/19 19:05 99 T-Piece 8.0 30 02/28/19 19:04 78 20 100 T-Piece 8.0 30 64 21 99 02/28/19 19:00 67 21 126/57 (80) 99 02/28/19 18:00 64 22 114/51 (72) 100 02/28/19 17:00 88 17 146/66 (92) 98 02/28/19 16:00 T-piece 8.0 02/28/19 16:00 98.0 02/28/19 16:00 6.0 28 02/28/19 16:00 69 19 104/45 (64) 100 02/28/19 16:00 69 02/28/19 15:00 65 21 101/49 (66) 100 02/28/19 14:43 69 20 100 T-Piece 8.0 30 68 20 99 02/28/19 14:00 62 21 140/54 (82) 100 I&O Intake and Output 02/28/19 03/01/19 19:00 07:00 Intake Total 630 ml 490 ml Output Total 300 ml 750 ml Balance 330 ml -260 ml Free Water 100 ml 50 ml IV Total 110 ml 55 ml Tube Feeding 420 ml 385 ml Output Urine Total 300 ml 750 ml # Bowel Movements 2 Dressing: other Wound: other Drains: other Cardiovascular: RSR Respiratory: decreased breath sounds Abdomen: soft, present bowel sounds Extremities: no cyanosis, other Laboratory Tests Test 03/01/19 09:35 White Blood Count 8.5 K/UL (4.8-10.8) Red Blood Count 3.45 M/UL (4.20-5.40) L Hemoglobin 9.5 G/DL (12.0-16.0) L Hematocrit 29.9 % (37.0-47.0) L Mean Corpuscular Volume 86 FL (80-99) Mean Corpuscular Hemoglobin 27.4 PG (27.0-31.0) Mean Corpuscular Hemoglobin Concent 31.7 G/DL (32.0-36.0) L Red Cell Distribution Width 17.0 % (11.6-14.8) H Platelet Count 205 K/UL (150-450) Mean Platelet Volume 5.8 FL (6.5-10.1) L Neutrophils (%) (Auto) 55.6 % (45.0-75.0) Lymphocytes (%) (Auto) 32.0 % (20.0-45.0) Monocytes (%) (Auto) 7.1 % (1.0-10.0) Eosinophils (%) (Auto) 4.5 % (0.0-3.0) H Basophils (%) (Auto) 0.9 % (0.0-2.0) Sodium Level 144 MMOL/L (136-145) Potassium Level 5.1 MMOL/L (3.5-5.1) Chloride Level 109 MMOL/L (98-107) H Carbon Dioxide Level 30 MMOL/L (21-32) Anion Gap 5 mmol/L (5-15) Blood Urea Nitrogen 32 mg/dL (7-18) H Creatinine 1.1 MG/DL (0.55-1.30) Estimat Glomerular Filtration Rate mL/min (>60) Glucose Level 118 MG/DL (74-106) H Calcium Level 8.9 MG/DL (8.5-10.1) Total Bilirubin 0.2 MG/DL (0.2-1.0) Aspartate Amino Transf (AST/SGOT) 24 U/L (15-37) Alanine Aminotransferase (ALT/SGPT) 23 U/L (12-78) Alkaline Phosphatase 116 U/L (46-116) Total Protein 8.3 G/DL (6.4-8.2) H Albumin 2.7 G/DL (3.4-5.0) L Globulin 5.6 g/dL Albumin/Globulin Ratio 0.5 (1.0-2.7) L Plan Problems: (1) Sacral decubitus ulcer Assessment & Plan: This is a 83-year-old female with multiple medical committees that is currently admitted for medical care and management and identified to have multiple wounds requiring care. On admission patient noted to have a resolved sacral decubitus ulcer. Has had prior care and is well-healed at this time. Will ensure it does not open up again. Patient has a right ischial decubitus ulcer that is resolved. Scar intact and well formed. Will monitor to ensure it does not open up again. Patient has a left ischial decubitus ulcer that can be identified to be stage IV with palpable bone that has been resolving as noted by the periwound tissue and scar but open area approximately 1 cm x 1.5 cm few millimeters deep to bone identified. Unsure if this is been to be completely healed prior and has since opened or if has been healing at this level. No foul odor no drainage was unsure local wound care until healed Bilateral heels soft without signs of injury Resolving pressure injury L ischium(L)1.8cm x (W)1cm.Scattered biofilm at base of wound. Edges flat and adherent with surrounding hyperpigmentation. No odor or exudate noted. Sacrum is pale pink with surrounding hyperpigmentation. Hyperpigmentation R ischium with small sheared area centrally.No areas of erythema or exudate noted. Both heels are soft but blanchable. Skin Assessed under collar of trach and no evidence of skin breakdown noted. All wound Tx. are effective and continued as ordered. Pt ahs an APM/Belén mattress overlay and is being repositioned per protocols and per tolerance.No new skin concerns noted. Full thickness pressure injury L Ischium with small amt biofilm (L)1.8cm x (W) 1cm. Surrounding pink hyperpigmentation. No odor or exudate noted. [address] hyperpigmentation from previous wound noted to sacrum. Pt also noted to have Cat 2 Skin Tear dorsal L hand, L 5th metatarsal extending into palm of hand. 80% skin flap in situ.Both heels are dry firm and blanchable. No other skin concerns noted. Cleanse Blister Dorsal and palm of L hand with saline. Versatel One Silicone Contact Layer(Applied). Apply Silvasorb Gel. Wrap with Kerlix Gauze.Change every 7 days and prn. Apply Moisture Barrier to sacrum. Cover with Optifoam drsg. Change every 3 days and prn. Cleanse L ischial wound with saline. Apply Therahoney. Apply Moisture Barrier Paste periwound. Cover with Optifoam drsg. Change every 3 days and prn. Apply Cavilon Skin Barrier to both heels. Cover each heel with Optifoam drsg. Change every 7 days and prn. APM/BELÉN Mattress overlay. Reposition at least every 2hours or as tolerated. Off-load heels with pillow. Nutritional optimization We will monitor follow with recommendations cont with above upon d/c (2) Sepsis Assessment & Plan: IV abx as per ID trend labs improving wounds unlikely etiology likely respiratory imaging noted and okay abnormal lft's stable PICC on Abx in ICU for desaturation CXR with consolidation Evidence of left lower lobe pneumonia, also previously demonstrated Gastrostomy in good position Mild diastasis of the rectus abdominis musculature again demonstrated Retrosacral decubitus changes, better depicted on prior exam which included the pelvis Small hiatal hernia with evidence of trace gastroesophageal reflux (3) Feeding by G-tube Assessment & Plan: DAILY ESTIMATED NEEDS: Needs based on Pulmonary, wounds, bedbound/ 60kg adj 25-28 kcals/kg 7700-9408 total kcals 1.25-2 g protein/kg 75-120 g total protein 25-30 mL/kg 3740-4118 total fluid mLs NUTRITION DIAGNOSIS: * Swallowing difficulty R/T respiratory status as evidenced by pt on T-collar, now back the vent, PEG dep, TF changed to low rate at this time due to episodes of vomiting + residuals. * Increased kcal/prot needs R/T wound healing as evidenced by BL buttocks and sacral wound photos, refer to reynaldo. (CURRENT TF:Glucerna 1.5 @35ml) ENTERAL NUTRITION RECOMMENDATIONS: VITAL AF 1.2 @ 55ml/hr x 24 hrs to provide 1320ml, 1584kcal, 99g prot, 1060ml free water - Once medically appropriate to resume TF, rec to initiate elemental and carb control formula of Vital 1.2 for possible improved tolerance - Initiate VITAL 1.2 @ 25ml/hr x 6hrs, advance 10ml q 4-6 hrs as tolerated to goal rate - Flush per MD/ HOB over 30 degrees ADDITIONAL RECOMMENDATIONS: 1) Re-calibrated bedscale wt for accurate CBW 2) Wound healing: Add Cristian 1pkt BID w/ improved Tf tolerace + MVI x1 daily 3) Monitor lytes, replete as needed (low Mg, K) 4) Monitor NPO status, ability to resume TF. -> held on and off due to vomiting since 02/02 5) SSI prn resume tube feeds (4) Chronic vegetative state Assessment & Plan: incontinence of urine and stool. can soil dressings. nurses doing great job with monitoring and changing prn (5) Leukocytosis Walter Madera Mar 01, 2019 13:50
--- NOTE | 2019-03-01 14:30 | NUR ---
NURSE NOTES: SUCTIONED AND REPOSITIONED PATIENT.
--- NOTE | 2019-03-01 14:38 | Pulmonolgy Critical Care Note ---
Critical Care - Asmt/Plan Assessment/Plan: Pulmonary CCM Progress Note Assessment/Plan Impression: Sepsis syndrome Pneumonia VDRF, Trach, G tube, Hypertension, Cardiac disease, Dementia, Previous CVA, Seizure disorder, Respiratory failure with hypoxia Anemia Sacral ulcer renal cyst pulmonary congestion Plan respiratory care to continue as is, TC as tolerated atropine neb therapy SNF meds as is off vent as able and has been off for several day Oxygen as needed Monitor labs daily changes noted and reviewed feeds as tolerated monitor albumin levels and provide protein and nutrition elevate head aspiration precautions Patient is a DNR. No CPR. ICU care reviewed medications/laboratory data/nursing notes/ICU care reviewed in detail note reviewed and edited care discussed with RN and RT ICU time spent 45 minutes Subjective Allergies: Coded Allergies: CODEINE (Verified Allergy, Unknown, HIVES, 09/15/09) Subjective respiratory care noted congestion- improved with atropine ICU care reviewed supportive care noted and reviewed RT care reviewed overnight care noted findings reviewed and discussed in detail with nursing and RT seen earlier this am Objective Vital Signs Noted Objective WDWN NAD contracted off vent reduced breath sounds bilaterally with some rhonchi overall; no wheeze [id number] without MRG NABS nontender no HSM no CC minimal nonfocal nonverbal trach and gt reviewed and edited Laboratory Tests Noted Critical Care - Objective Last 24 Hour Vital Signs Date Time Temp Pulse Resp B/P (MAP) Pulse Ox O2 Delivery O2 Flow Rate FiO2 03/01/19 14:00 75 22 122/82 (95) 96 03/01/19 14:00 77 24 99/38 (58) 98 03/01/19 13:18 98 T-Piece 8.0 30 03/01/19 13:00 74 21 117/50 (72) 100 03/01/19 12:00 6.0 28 03/01/19 12:00 77 03/01/19 12:00 98.7 76 21 130/50 (76) 100 03/01/19 12:00 T-piece 8.0 03/01/19 11:00 73 24 141/68 (92) 99 03/01/19 10:57 74 23 99 T-Piece 8.0 30 72 23 99 03/01/19 10:00 76 21 97/44 (61) 97 03/01/19 09:13 77 22 99 T-Piece 8.0 30 79 22 96 03/01/19 09:00 78 22 97/45 (62) 95 03/01/19 08:24 78 90/45 03/01/19 08:00 6.0 28 03/01/19 08:00 98.3 80 22 90/45 (60) 96 03/01/19 08:00 T-piece 8.0 03/01/19 08:00 78 03/01/19 07:14 100 T-Piece 8.0 30 03/01/19 07:13 82 22 100 T-Piece 8.0 30 88 22 97 03/01/19 07:11 75 22 97 T-Piece 8.0 30 03/01/19 07:00 73 20 133/45 (74) 97 03/01/19 06:00 69 21 112/46 (68) 99 03/01/19 05:00 77 22 140/54 (82) 100 03/01/19 04:00 6.0 28 03/01/19 04:00 98.3 70 20 136/50 (78) 100 03/01/19 04:00 T-piece 8.0 03/01/19 04:00 74 03/01/19 03:43 68 20 100 T-Piece 8.0 30 71 21 99 03/01/19 03:00 69 19 145/49 (81) 100 03/01/19 02:00 68 21 143/56 (85) 100 03/01/19 01:25 100 T-Piece 8.0 30 03/01/19 01:00 67 20 135/46 (75) 100 03/01/19 00:00 6.0 28 03/01/19 00:00 T-piece 8.0 03/01/19 00:00 98.4 67 17 139/61 (87) 100 67 03/01/19 00:00 65 03/01/19 00:00 88 22 142/71 (94) 99 88 02/28/19 23:00 88 22 142/71 (94) 99 88 02/28/19 22:30 64 19 100 T-Piece 8.0 30 69 20 99 02/28/19 22:20 69 18 100 T-Piece 8.0 30 65 20 100 02/28/19 22:00 67 16 125/64 (84) 100 75 02/28/19 21:00 73 21 134/55 (81) 100 73 02/28/19 20:54 73 134/55 11/30/19 20:00 T-piece 8.0 02/28/19 20:00 75 02/28/19 20:00 6.0 28 02/28/19 20:00 98.4 69 134/55 (81) 100 75 02/28/19 19:05 64 21 99 T-Piece 8.0 30 02/28/19 19:05 99 T-Piece 8.0 30 02/28/19 19:04 78 20 100 T-Piece 8.0 30 64 21 99 02/28/19 19:00 67 21 126/57 (80) 99 02/28/19 18:00 64 22 114/51 (72) 100 02/28/19 17:00 88 17 146/66 (92) 98 02/28/19 16:00 T-piece 8.0 02/28/19 16:00 98.0 02/28/19 16:00 6.0 28 02/28/19 16:00 69 19 104/45 (64) 100 02/28/19 16:00 69 02/28/19 15:00 65 21 101/49 (66) 100 02/28/19 14:43 69 20 100 T-Piece 8.0 30 68 20 99 Critical Care - Subjective ROS Limited/Unobtainable: No FI02: 30 Vent Support Mode: CPAP Vent Tidal Volume: 450 Sputum Amount: Small PEEP: 5.0 PIP: 19 Tube Feeding Amount: 35 I&O: Intake and Output 02/28/19 03/01/19 19:00 07:00 Intake Total 630 ml 490 ml Output Total 300 ml 750 ml Balance 330 ml -260 ml Free Water 100 ml 50 ml IV Total 110 ml 55 ml Tube Feeding 420 ml 385 ml Output Urine Total 300 ml 750 ml # Bowel Movements 2 ET-Tube: 6.0 Bg Moffett MD Mar 01, 2019 14:38
--- NOTE | 2019-03-01 16:45 | NUR ---
HAND-OFF: Report given to Jm Mccarty RN.
--- NOTE | 2019-03-01 17:30 | NUR ---
NURSE NOTES: TF was changed to include the tubing. Patient was given a 30 ml flush. A new bottle of Gluc 1.5 was hung @ 35 ml/hr. Oral care was performed. Linens were changed. Patient does not appear in any acute distress. VSS. Patient on cool mist with T-pience.
--- NOTE | 2019-03-01 17:45 | NUR ---
HAND-OFF: Report given to Jm Mccarty RN. Addendum: 03/01/19 at 1843 by BARBARA MONROY RN wrong entry
--- NOTE | 2019-03-01 19:30 | NUR ---
NURSE NOTES: Received report from JEANNINE Khan. Pt is resting on the bed and obtunded. On Trach collar with O2 8L and FiO2 30% and SaO2 100% noted. Given tracheal and oral suction. Whitish thick secretion suctioned. Provided oral care. Rt. upper arm PICC site dressing is clean and dry and no sign of infiltration noted. On G-tube feeding with Glucerna 1.5 @ 35cc/hr and no residual noted. No sign of pain by FLACC scale. On Purewicks in placed. Dressing is clean and dry on wounds area. Changed potion. Placed fall and seizure precaution. Will continue to care plan.
--- NOTE | 2019-03-01 20:00 | NUR ---
NURSE NOTES: Cleaned Pt and changed chux. Applied lotion and cream. Placed new purewicks. Changed position. Suction was done. Will continue to monitor any change of condition.
[2019-03-01] MEDS: Dyna-Hex 2% Top Sol 2oz TOPIC SCH (20:07)
--- NOTE | 2019-03-01 22:00 | NUR ---
NURSE NOTES: Pt is sleeping on the bed and family stays at bedside. Changed position. Given tracheal and oral suction. Stable V/S. Will continue to monitor any change of condition.
[2019-03-02] VITALS (24 sets, daily range): BP systolic 102–161; BP diastolic 48–75
--- NOTE | 2019-03-02 | NUR ---
NURSE NOTES: Pt is sleeping on the bed and no sign of acute distress noted. Suction was done. Repositioned.
[2019-03-02] MEDS: Acetylcysteine 20% Soln 4ml HHN SCH ×5 (03:01→19:27)
[2019-03-02] MEDS: Albuterol/Ipratropium 3ml neb HHN SCH ×5 (03:01→19:27)
[2019-03-02] MEDS: HydrALAZINE 25mg tab GT PRN (04:02)
--- NOTE | 2019-03-02 04:02 | NUR ---
NURSE NOTES: Pt is sleeping on the bed and checked BP 161/59mmHg, HR: 66's. Given PRN hydralazine 25mg GT as ordered. Repositioned. Given oral and tracheal suction. PICC line patent and N/S flushed well but no blood return noted. Provided oral care. Placed fall and seizure precaution. Will continue to monitor any change of condition.
[2019-03-02 05:15] LABS: BASOPHILS % (AUTO) 1.2 % (0.0-2.0); EOSINOPHILS % (AUTO) 5.1 % (0.0-3.0); HEMATOCRIT 33.8 % (37.0-47.0); LYMPHOCYTES % (AUTO) 36.8 % (20.0-45.0); MEAN CORPUSCULAR VOLUME 86 FL (80-99); MONOCYTES % (AUTO) 6.3 % (1.0-10.0); NEUTROPHILS % (AUTO) 50.5 % (45.0-75.0); PLATELET COUNT 199 K/UL (150-450); RED BLOOD COUNT 3.95 M/UL (4.20-5.40); WHITE BLOOD COUNT 7.7 K/UL (4.8-10.8)
[2019-03-02 05:53] LABS: ANION GAP 4 mmol/L (5-15); BLOOD UREA NITROGEN 31 mg/dL (7-18); CALCIUM 9.2 MG/DL (8.5-10.1); CARBON DIOXIDE 30 MMOL/L (21-32); CHLORIDE 109 MMOL/L (98-107); CREATININE 1.1 MG/DL (0.55-1.30); POTASSIUM 5.4 MMOL/L (3.5-5.1); SODIUM 143 MMOL/L (136-145)
--- NOTE | 2019-03-02 06:00 | NUR ---
NURSE NOTES: Morning care was done. Noted large amount soft BM. Cleaned Pt and applied lotion and cream. Changed wound dressing. repositioned. Given suction and oral care. Placed fall and seizure precaution. Will continue to monitor any change of condition.
--- NOTE | 2019-03-02 07:00 | NUR ---
NURSE NOTES: Noted potassium level is 5.4 today. Left message to Dr. Beltrán and awaiting call back.
--- NOTE | 2019-03-02 07:14 | General Progress Note ---
Assessment/Plan Problem List: (1) Seizure ICD Codes: R56.9 - Unspecified convulsions SNOMED: 07163216 (2) Anemia ICD Codes: D64.9 - Anemia, unspecified SNOMED: 384554938 Qualifiers: Qualified Codes: D64.9 - Anemia, unspecified (3) Sepsis ICD Codes: A41.9 - Sepsis, unspecified organism SNOMED: 29650567, 324958412 Qualifiers: Qualified Codes: A41.9 - Sepsis, unspecified organism (4) Respiratory failure with hypoxia ICD Codes: J96.91 - Respiratory failure, unspecified with hypoxia SNOMED: 26890841895411903 Qualifiers: Qualified Codes: J96.21 - Acute and chronic respiratory failure with hypoxia (5) HCAP (healthcare-associated pneumonia) ICD Codes: J18.9 - Pneumonia, unspecified organism SNOMED: 928031438, 069834993 (6) Sacral decubitus ulcer ICD Codes: L89.159 - Pressure ulcer of sacral region, unspecified stage SNOMED: 523938834 (7) HTN (hypertension) ICD Codes: I10 - Essential (primary) hypertension SNOMED: 89774996 (8) Chronic vegetative state ICD Codes: R40.3 - Persistent vegetative state SNOMED: 64602861 (9) Chronic respiratory failure ICD Codes: J96.10 - Chronic respiratory failure, unspecified whether with hypoxia or hypercapnia SNOMED: 45717934 (10) Limited mobility ICD Codes: Z74.09 - Other reduced mobility SNOMED: 9685230 Status: stable, progressing Assessment/Plan: vent prn as needed resp rx suctioning as needed gt feeds monitor for vomiting bowel regime monitor residuals sx rx monitor bp kayexylate x 1 repeat labs dc planning Subjective ROS Limited/Unobtainable: Yes Constitutional: Reports: malaise, weakness HEENT: Reports: no symptoms Cardiovascular: Reports: no symptoms Respiratory: Reports: cough Gastrointestinal/Abdominal: Reports: difficulty swallowing Genitourinary: Reports: no symptoms Neurologic/Psychiatric: Reports: pre-existing deficit, seizure Endocrine: Reports: no symptoms Hematologic/Lymphatic: Reports: anemia Allergies: Coded Allergies: CODEINE (Verified Allergy, Unknown, HIVES, 09/15/09) All Systems: reviewed and negative except above Subjective no events. remains on the vent. intermittently congested. no fever or chills. overall the same sputum neg for kpc. bp higher. high k noted Objective Last 24 Hour Vital Signs Date Time Temp Pulse Resp B/P (MAP) Pulse Ox O2 Delivery O2 Flow Rate FiO2 03/02/19 06:00 85 25 154/59 (90) 99 03/02/19 05:00 71 21 150/67 (94) 100 03/02/19 04:02 161/59 03/02/19 04:00 64 03/02/19 04:00 8.0 30 03/02/19 04:00 98.5 66 20 161/59 (93) 100 03/02/19 04:00 T-piece 8.0 03/02/19 03:01 66 20 100 T-Piece 8.0 30 64 20 99 03/02/19 03:00 72 19 158/59 (92) 100 03/02/19 02:00 66 25 144/60 (88) 100 03/02/19 01:26 100 T-Piece 8.0 30 03/02/19 01:00 65 22 142/63 (89) 100 03/02/19 00:00 8.0 30 03/02/19 00:00 T-piece 8.0 03/02/19 00:00 65 03/02/19 00:00 98.5 64 22 147/57 (87) 100 03/01/19 23:00 69 20 149/57 (87) 100 03/01/19 22:53 88 20 100 T-Piece 8.0 30 85 20 99 03/01/19 22:00 70 20 100 T-Piece 8.0 30 66 20 99 03/01/19 22:00 66 21 142/61 (88) 100 03/01/19 21:00 70 20 137/58 (84) 100 03/01/19 20:53 71 129/58 03/01/19 20:00 8.0 30 03/01/19 20:00 98.3 71 19 129/58 (81) 100 03/01/19 20:00 74 03/01/19 20:00 T-piece 8.0 03/01/19 19:48 72 20 100 T-Piece 8.0 30 70 20 98 03/01/19 19:47 100 T-Piece 8.0 30 03/01/19 19:46 80 20 100 T-Piece 8.0 30 03/01/19 19:00 68 22 107/49 (68) 99 03/01/19 18:00 73 21 124/58 (80) 100 03/01/19 17:00 76 23 99/44 (62) 100 03/01/19 16:00 T-piece 8.0 03/01/19 16:00 77 03/01/19 16:00 74 23 117/45 (69) 100 03/01/19 16:00 6.0 28 03/01/19 15:11 75 16 100 T-Piece 8.0 30 76 17 100 03/01/19 15:00 74 20 108/47 (67) 98 03/01/19 14:00 75 22 122/82 (95) 96 03/01/19 14:00 77 24 99/38 (58) 98 03/01/19 13:18 98 T-Piece 8.0 30 03/01/19 13:00 74 21 117/50 (72) 100 03/01/19 12:00 6.0 28 03/01/19 12:00 77 03/01/19 12:00 98.7 76 21 130/50 (76) 100 03/01/19 12:00 T-piece 8.0 03/01/19 11:00 73 24 141/68 (92) 99 03/01/19 10:57 74 23 99 T-Piece 8.0 30 72 23 99 03/01/19 10:00 76 21 97/44 (61) 97 03/01/19 09:13 77 22 99 T-Piece 8.0 30 79 22 96 03/01/19 09:00 78 22 97/45 (62) 95 03/01/19 08:24 78 90/45 03/01/19 08:00 6.0 28 03/01/19 08:00 98.3 80 22 90/45 (60) 96 03/01/19 08:00 T-piece 8.0 03/01/19 08:00 78 03/01/19 07:14 100 T-Piece 8.0 30 Intake and Output 03/01/19 03/02/19 18:59 06:59 Intake Total 610 ml 475 ml Output Total 800 ml Balance 610 ml -325 ml Free Water 50 ml IV Total 110 ml 55 ml Tube Feeding 420 ml 420 ml Other 30 ml Output Urine Total 800 ml # Bowel Movements 1 Laboratory Tests 03/01/19 09:35: White Blood Count 8.5, Red Blood Count 3.45L, Hemoglobin 9.5L, Hematocrit 29.9L , Mean Corpuscular Volume 86, Mean Corpuscular Hemoglobin 27.4, Mean Corpuscular Hemoglobin Concent 31.7L, Red Cell Distribution Width 17.0H, Platelet Count 205, Mean Platelet Volume 5.8L, Neutrophils (%) (Auto) 55.6, Lymphocytes (%) (Auto) 32.0, Monocytes (%) (Auto) 7.1, Eosinophils (%) (Auto) 4.5H, Basophils (%) (Auto) 0.9, Sodium Level 144, Potassium Level 5.1, Chloride Level 109H, Carbon Dioxide Level 30, Anion Gap 5, Blood Urea Nitrogen 32H, Creatinine 1.1, Estimat Glomerular Filtration Rate , Glucose Level 118H, Calcium Level 8.9, Total Bilirubin 0.2, Aspartate Amino Transf (AST/SGOT) 24, Alanine Aminotransferase (ALT/SGPT) 23, Alkaline Phosphatase 116, Total Protein 8.3H, Albumin 2.7L, Globulin 5.6, Albumin/Globulin Ratio 0.5L 03/02/19 03:00: White Blood Count 7.7, Red Blood Count 3.95L, Hemoglobin 11.0L, Hematocrit 33.8L , Mean Corpuscular Volume 86, Mean Corpuscular Hemoglobin 27.7, Mean Corpuscular Hemoglobin Concent 32.4, Red Cell Distribution Width 17.0H, Platelet Count 199, Mean Platelet Volume 6.0L, Neutrophils (%) (Auto) 50.5, Lymphocytes (%) (Auto) 36.8, Monocytes (%) (Auto) 6.3, Eosinophils (%) (Auto) 5.1H, Basophils (%) (Auto) 1.2, Sodium Level 143, Potassium Level 5.4H, Chloride Level 109H, Carbon Dioxide Level 30, Anion Gap 4L, Blood Urea Nitrogen 31H, Creatinine 1.1, Estimat Glomerular Filtration Rate , Glucose Level 91, Calcium Level 9.2 Height (Feet): 5 Height (Inches): 5.00 Weight (Pounds): 180 Objective General Appearance: WD/WN, confused. on trach collar Neck: supple Cardiovascular: normal rate, regular rhythm Respiratory/Chest: chest wall non-tender, rhonchi - bilaterally(minimal) Abdomen: normal bowel sounds, non tender, soft, no organomegaly Edema: no edema noted Arm (L), no edema noted Arm (R), no edema noted Leg (L), no edema noted Leg (R), no edema noted Pedal (L), no edema noted Pedal (R), no edema noted Generalized Neurologic: disoriented, unresponsive, aphasia Irvin Beltrán MD Mar 02, 2019 07:14
[2019-03-02] MEDS ORDERED: Sodium Polystyrene Sulfonate 15gm Powder ORAL SCH (07:15)
--- NOTE | 2019-03-02 07:19 | NUR ---
HAND-OFF: Report given to JEANNINE Haynes. Pt is sleeping on the bed and no sign of acute distress noted.
--- NOTE | 2019-03-02 07:20 | NUR ---
NURSE NOTES: Received report from JEANNINE Britt. Pt is observed laying in bed and obtunded, spontaneously opens eyes, however, doesn't track. No signs of pain or distress noted. On Trach collar with O2 8L and FiO2 30%; SaO2 currently 100%. B/P: 139/57, HR: 67. Rt upper arm PICC site dressing is clean and dry. Feeding with Glucerna 1.5 @ 35mL/hr via G Tube. Purewick in place and draining yellow urine. Wound dressings clean, dry, and in tact. Pt maintained on seizure precautions. Bed locked and lowest position with call light within reach. Will resume plan of care.
[2019-03-02] MEDS: Meropenem 1 GM in NS 55 ML IVPB SCH ×2 (08:17→21:40)
[2019-03-02] MEDS: Bacitracin Oint 15gm Tube TOPIC SCH ×3 (08:17→17:29)
[2019-03-02] MEDS: Pantoprazole Inj IVP SCH (08:17)
[2019-03-02] MEDS: levETIRAcetam 500mg/5ml Liquid GT SCH ×2 (08:18→21:38)
[2019-03-02] MEDS: Heparin 5000 units/ml inj SUBQ SCH ×2 (08:19→21:47)
--- NOTE | 2019-03-02 09:11 | Pulmonology Progress Note ---
Assessment/Plan Assessment/Plan Impression: Sepsis syndrome Pneumonia VDRF, Trach, G tube, Hypertension, Cardiac disease, Dementia, Previous CVA, Seizure disorder, Respiratory failure with hypoxia Anemia Sacral ulcer renal cyst pulmonary congestion Plan respiratory care to continue as is atropine as needed neb therapy as is SNF meds as is off vent as able Oxygen as needed Monitor labs for change monitor imaging feeds as tolerated monitor albumin levels aspiration precautions Patient is a DNR. No CPR. ICU care reviewed medications/laboratory data/nursing notes/ICU care reviewed in detail note reviewed and edited care discussed with RN and RT ICU time spent 37 minutes Subjective ROS Limited/Unobtainable: Yes Allergies: Coded Allergies: CODEINE (Verified Allergy, Unknown, HIVES, 09/15/09) Subjective respiratory care noted congestion- reviewed ICU care reviewed supportive care and weekend events reviewed RT care reviewed overnight care noted findings reviewed and discussed seen earlier this am Objective Last 24 Hour Vital Signs Date Time Temp Pulse Resp B/P (MAP) Pulse Ox O2 Delivery O2 Flow Rate FiO2 03/02/19 08:18 68 142/59 03/02/19 08:00 T-piece 8.0 03/02/19 08:00 8.0 30 03/02/19 08:00 98.7 65 19 142/59 (86) 100 03/02/19 07:08 66 22 100 T-Piece 8.0 30 65 23 100 03/02/19 07:08 65 23 100 T-Piece 8.0 30 03/02/19 07:08 100 T-Piece 8.0 30 03/02/19 07:00 64 21 139/57 (84) 99 03/02/19 06:00 85 25 154/59 (90) 99 03/02/19 05:00 71 21 150/67 (94) 100 03/02/19 04:02 161/59 03/02/19 04:00 64 03/02/19 04:00 8.0 30 03/02/19 04:00 98.5 66 20 161/59 (93) 100 03/02/19 04:00 T-piece 8.0 03/02/19 03:01 66 20 100 T-Piece 8.0 30 64 20 99 03/02/19 03:00 72 19 158/59 (92) 100 03/02/19 02:00 66 25 144/60 (88) 100 03/02/19 01:26 100 T-Piece 8.0 30 03/02/19 01:00 65 22 142/63 (89) 100 03/02/19 00:00 8.0 30 03/02/19 00:00 T-piece 8.0 03/02/19 00:00 65 03/02/19 00:00 98.5 64 22 147/57 (87) 100 03/01/19 23:00 69 20 149/57 (87) 100 03/01/19 22:53 88 20 100 T-Piece 8.0 30 85 20 99 03/01/19 22:00 70 20 100 T-Piece 8.0 30 66 20 99 03/01/19 22:00 66 21 142/61 (88) 100 03/01/19 21:00 70 20 137/58 (84) 100 03/01/19 20:53 71 129/58 03/01/19 20:00 8.0 30 03/01/19 20:00 98.3 71 19 129/58 (81) 100 03/01/19 20:00 74 03/01/19 20:00 T-piece 8.0 03/01/19 19:48 72 20 100 T-Piece 8.0 30 70 20 98 03/01/19 19:47 100 T-Piece 8.0 30 03/01/19 19:46 80 20 100 T-Piece 8.0 30 03/01/19 19:00 68 22 107/49 (68) 99 03/01/19 18:00 73 21 124/58 (80) 100 03/01/19 17:00 76 23 99/44 (62) 100 03/01/19 16:00 T-piece 8.0 03/01/19 16:00 77 03/01/19 16:00 74 23 117/45 (69) 100 03/01/19 16:00 6.0 28 03/01/19 15:11 75 16 100 T-Piece 8.0 30 76 17 100 03/01/19 15:00 74 20 108/47 (67) 98 03/01/19 14:00 75 22 122/82 (95) 96 03/01/19 14:00 77 24 99/38 (58) 98 03/01/19 13:18 98 T-Piece 8.0 30 03/01/19 13:00 74 21 117/50 (72) 100 03/01/19 12:00 6.0 28 03/01/19 12:00 77 03/01/19 12:00 98.7 76 21 130/50 (76) 100 03/01/19 12:00 T-piece 8.0 03/01/19 11:00 73 24 141/68 (92) 99 03/01/19 10:57 74 23 99 T-Piece 8.0 30 72 23 99 03/01/19 10:00 76 21 97/44 (61) 97 03/01/19 09:13 77 22 99 T-Piece 8.0 30 79 22 96 Intake and Output 03/01/19 03/02/19 18:59 06:59 Intake Total 610 ml 475 ml Output Total 800 ml Balance 610 ml -325 ml Free Water 50 ml IV Total 110 ml 55 ml Tube Feeding 420 ml 420 ml Other 30 ml Output Urine Total 800 ml # Bowel Movements 1 Objective WDWN NAD contracted off vent reduced breath sounds bilaterally with some rhonchi overall; no wheeze [id number] without MRG NABS nontender no HSM no CC minimal nonfocal nonverbal trach and gt reviewed and edited Laboratory Tests 03/01/19 09:35: White Blood Count 8.5, Red Blood Count 3.45L, Hemoglobin 9.5L, Hematocrit 29.9L , Mean Corpuscular Volume 86, Mean Corpuscular Hemoglobin 27.4, Mean Corpuscular Hemoglobin Concent 31.7L, Red Cell Distribution Width 17.0H, Platelet Count 205, Mean Platelet Volume 5.8L, Neutrophils (%) (Auto) 55.6, Lymphocytes (%) (Auto) 32.0, Monocytes (%) (Auto) 7.1, Eosinophils (%) (Auto) 4.5H, Basophils (%) (Auto) 0.9, Sodium Level 144, Potassium Level 5.1, Chloride Level 109H, Carbon Dioxide Level 30, Anion Gap 5, Blood Urea Nitrogen 32H, Creatinine 1.1, Estimat Glomerular Filtration Rate , Glucose Level 118H, Calcium Level 8.9, Total Bilirubin 0.2, Aspartate Amino Transf (AST/SGOT) 24, Alanine Aminotransferase (ALT/SGPT) 23, Alkaline Phosphatase 116, Total Protein 8.3H, Albumin 2.7L, Globulin 5.6, Albumin/Globulin Ratio 0.5L 03/02/19 03:00: White Blood Count 7.7, Red Blood Count 3.95L, Hemoglobin 11.0L, Hematocrit 33.8L , Mean Corpuscular Volume 86, Mean Corpuscular Hemoglobin 27.7, Mean Corpuscular Hemoglobin Concent 32.4, Red Cell Distribution Width 17.0H, Platelet Count 199, Mean Platelet Volume 6.0L, Neutrophils (%) (Auto) 50.5, Lymphocytes (%) (Auto) 36.8, Monocytes (%) (Auto) 6.3, Eosinophils (%) (Auto) 5.1H, Basophils (%) (Auto) 1.2, Sodium Level 143, Potassium Level 5.4H, Chloride Level 109H, Carbon Dioxide Level 30, Anion Gap 4L, Blood Urea Nitrogen 31H, Creatinine 1.1, Estimat Glomerular Filtration Rate , Glucose Level 91, Calcium Level 9.2 Current Medications Medications (Trade) Dose Ordered Sig/Maicol Route PRN Reason Start Time Stop Time Status Last Admin Dose Admin Acetaminophen (Tylenol) 650 mg Q4H PRN GT Mild Pain/Temp > 100.5 02/18/19 05:44 03/05/19 05:43 02/23/19 21:33 Acetylcysteine (Mucomyst) 200 mg Q4HRT [facility] 02/28/19 03:00 03/29/19 16:59 03/02/19 07:08 Albuterol/ Ipratropium (Albuterol/ Ipratropium) 3 ml Q4HRT [facility] 02/27/19 15:00 03/04/19 14:59 03/02/19 07:08 Amikacin Sulfate (Amikin) 500 mg Q12HR@10,22 INH 02/27/19 22:00 03/06/19 21:59 03/01/19 22:34 Atropine Sulfate (Atropine Opth Adriana) 1 drop TID SL 02/18/19 09:00 03/12/19 09:29 03/02/19 08:16 Bacitracin (Bacitracin 15gm tube) 1 applic THREE TIMES A DAY TOPIC 02/28/19 18:30 03/30/19 18:29 03/02/19 08:17 Chlorhexidine Gluconate (Cesilia-Hex 2%) 1 applic DAILY@1999 TOPIC 02/18/19 20:00 03/12/19 19:59 03/01/19 20:07 Heparin Sodium (Porcine) (Heparin 5000 units/ml) 5,000 units EVERY 12 HOURS SUBQ 02/18/19 09:00 03/16/19 23:14 03/02/19 08:19 Hydralazine HCl (Apresoline) 25 mg Q4H PRN GT SBP above 160 02/18/19 05:46 03/09/19 05:45 03/02/19 04:02 Levetiracetam (Keppra) 750 mg Q12HR GT 02/18/19 09:00 03/16/19 23:29 03/02/19 08:18 Meropenem 1 gm/ Sodium Chloride 55 ml @ 110 mls/hr Q12HR IVPB 02/27/19 11:00 03/04/19 10:59 03/02/19 08:17 Metoclopramide HCl (Reglan) 10 mg Q6H PRN IVP Nausea & Vomiting 02/18/19 05:46 03/09/19 05:45 Metoprolol Tartrate (Lopressor) 25 mg Q12HR GT 02/18/19 09:00 03/16/19 23:29 03/02/19 08:18 Pantoprazole (Protonix) 40 mg Q12HR IVP 02/18/19 09:00 03/16/19 23:29 03/02/19 08:17 Amaury Chan MD Mar 02, 2019 09:11
--- NOTE | 2019-03-02 10:00 | NUR ---
NURSE NOTES: Pt suctioned, oral care performed and repositioned. No distress noted at this time. Will continue to monitor.
[2019-03-02] MEDS: Amikacin for Inhalation 2ML INH SCH ×2 (10:01→22:36)
--- NOTE | 2019-03-02 10:33 | General Progress Note ---
Assessment/Plan Status: stable, progressing Assessment/Plan: Assessment - N/V, periodic - suspect due to gastroparesis - will hold off on G to J conversion per daughter request - Elevated Alk phos / LFT - CT negative - abd U/S negative - check hepatitis serologies - negative - Anemia with OB (-) stools - Resp failure, s/p Trach - dysphagia, s/p PEG - OBS - minor GT tract inflammation / infection - poor Px Recommendations - laxative PRN - antibiotic ointment to GT site - continue TF - aspiration precautions - elevate HOB - PPI Subjective Allergies: Coded Allergies: CODEINE (Verified Allergy, Unknown, HIVES, 09/15/09) Subjective Seen in ICU tolerating TF d/w RN Objective Last 24 Hour Vital Signs Date Time Temp Pulse Resp B/P (MAP) Pulse Ox O2 Delivery O2 Flow Rate FiO2 03/02/19 10:02 78 18 100 T-Piece 8.0 30 81 22 97 03/02/19 10:00 72 22 129/62 (84) 99 03/02/19 09:00 69 23 152/57 (88) 100 03/02/19 08:18 68 142/59 03/02/19 08:17 66 03/02/19 08:00 T-piece 8.0 03/02/19 08:00 8.0 30 03/02/19 08:00 98.7 65 19 142/59 (86) 100 03/02/19 07:08 66 22 100 T-Piece 8.0 30 65 23 100 03/02/19 07:08 65 23 100 T-Piece 8.0 30 03/02/19 07:08 100 T-Piece 8.0 30 03/02/19 07:00 64 21 139/57 (84) 99 03/02/19 06:00 85 25 154/59 (90) 99 03/02/19 05:00 71 21 150/67 (94) 100 03/02/19 04:02 161/59 03/02/19 04:00 64 03/02/19 04:00 8.0 30 03/02/19 04:00 98.5 66 20 161/59 (93) 100 03/02/19 04:00 T-piece 8.0 03/02/19 03:01 66 20 100 T-Piece 8.0 30 64 20 99 03/02/19 03:00 72 19 158/59 (92) 100 03/02/19 02:00 66 25 144/60 (88) 100 03/02/19 01:26 100 T-Piece 8.0 30 03/02/19 01:00 65 22 142/63 (89) 100 03/02/19 00:00 8.0 30 03/02/19 00:00 T-piece 8.0 03/02/19 00:00 65 03/02/19 00:00 98.5 64 22 147/57 (87) 100 03/01/19 23:00 69 20 149/57 (87) 100 03/01/19 22:53 88 20 100 T-Piece 8.0 30 85 20 99 03/01/19 22:00 70 20 100 T-Piece 8.0 30 66 20 99 03/01/19 22:00 66 21 142/61 (88) 100 03/01/19 21:00 70 20 137/58 (84) 100 03/01/19 20:53 71 129/58 03/01/19 20:00 8.0 30 03/01/19 20:00 98.3 71 19 129/58 (81) 100 03/01/19 20:00 74 03/01/19 20:00 T-piece 8.0 03/01/19 19:48 72 20 100 T-Piece 8.0 30 70 20 98 03/01/19 19:47 100 T-Piece 8.0 30 03/01/19 19:46 80 20 100 T-Piece 8.0 30 03/01/19 19:00 68 22 107/49 (68) 99 03/01/19 18:00 73 21 124/58 (80) 100 03/01/19 17:00 76 23 99/44 (62) 100 03/01/19 16:00 T-piece 8.0 03/01/19 16:00 77 03/01/19 16:00 74 23 117/45 (69) 100 03/01/19 16:00 6.0 28 03/01/19 15:11 75 16 100 T-Piece 8.0 30 76 17 100 03/01/19 15:00 74 20 108/47 (67) 98 03/01/19 14:00 75 22 122/82 (95) 96 03/01/19 14:00 77 24 99/38 (58) 98 03/01/19 13:18 98 T-Piece 8.0 30 03/01/19 13:00 74 21 117/50 (72) 100 03/01/19 12:00 6.0 28 03/01/19 12:00 77 03/01/19 12:00 98.7 76 21 130/50 (76) 100 03/01/19 12:00 T-piece 8.0 03/01/19 11:00 73 24 141/68 (92) 99 03/01/19 10:57 74 23 99 T-Piece 8.0 30 72 23 99 Intake and Output 03/01/19 03/02/19 18:59 06:59 Intake Total 610 ml 475 ml Output Total 800 ml Balance 610 ml -325 ml Free Water 50 ml IV Total 110 ml 55 ml Tube Feeding 420 ml 420 ml Other 30 ml Output Urine Total 800 ml # Bowel Movements 1 Laboratory Tests 03/02/19 03:00: White Blood Count 7.7, Red Blood Count 3.95L, Hemoglobin 11.0L, Hematocrit 33.8L , Mean Corpuscular Volume 86, Mean Corpuscular Hemoglobin 27.7, Mean Corpuscular Hemoglobin Concent 32.4, Red Cell Distribution Width 17.0H, Platelet Count 199, Mean Platelet Volume 6.0L, Neutrophils (%) (Auto) 50.5, Lymphocytes (%) (Auto) 36.8, Monocytes (%) (Auto) 6.3, Eosinophils (%) (Auto) 5.1H, Basophils (%) (Auto) 1.2, Sodium Level 143, Potassium Level 5.4H, Chloride Level 109H, Carbon Dioxide Level 30, Anion Gap 4L, Blood Urea Nitrogen 31H, Creatinine 1.1, Estimat Glomerular Filtration Rate , Glucose Level 91, Calcium Level 9.2 Height (Feet): 5 Height (Inches): 5.00 Weight (Pounds): 180 Objective Debilitated AA woman NCAT (+) trach coarse ronchi RR obese abd, (+) GT - minimal mucoid d/c at GT site no edema Celio Vaughan MD Mar 02, 2019 10:33
--- NOTE | 2019-03-02 11:07 | NUR ---
DISCHARGE PLANNING SEEKING SUB ACUTE THAT WILL ACCEPT PATIENT WITH [facility] REFERRED TO [facility] DAUGHTER IS REFUSING [facility] HAS DENIED ACCEPTANCE [facility] ~ NO BEDS AVAILABLE
--- NOTE | 2019-03-02 11:16 | Infectious Diseases Prog Note ---
"Assessment/Plan Assessment/Plan antibiotics : none A 1. UTI with proteus s/p rx 2. respiratory failure 3. hypertension 4. CVA 5. dementia 6. sacral decubitus ulcer 7. rectal VRE colonization 8. acenitobacter | enterobacter | klebsiella | pseudomonas pneumonia 9. renal failure resolved P 1. continue meropenem, inhaled amikacin 3 more days 2. will follow up cultures Subjective ROS Limited/Unobtainable: Yes Allergies: Coded Allergies: CODEINE (Verified Allergy, Unknown, HIVES, 09/15/09) Objective Vital Signs Last 24 Hour Vital Signs Date Time Temp Pulse Resp B/P (MAP) Pulse Ox O2 Delivery O2 Flow Rate FiO2 03/02/19 10:02 78 18 100 T-Piece 8.0 30 81 22 97 03/02/19 10:00 72 22 129/62 (84) 99 03/02/19 09:00 69 23 152/57 (88) 100 03/02/19 08:18 68 142/59 03/02/19 08:17 66 03/02/19 08:00 T-piece 8.0 03/02/19 08:00 8.0 30 03/02/19 08:00 98.7 65 19 142/59 (86) 100 03/02/19 07:08 66 22 100 T-Piece 8.0 30 65 23 100 03/02/19 07:08 65 23 100 T-Piece 8.0 30 03/02/19 07:08 100 T-Piece 8.0 30 03/02/19 07:00 64 21 139/57 (84) 99 03/02/19 06:00 85 25 154/59 (90) 99 03/02/19 05:00 71 21 150/67 (94) 100 03/02/19 04:02 161/59 03/02/19 04:00 64 03/02/19 04:00 8.0 30 03/02/19 04:00 98.5 66 20 161/59 (93) 100 03/02/19 04:00 T-piece 8.0 03/02/19 03:01 66 20 100 T-Piece 8.0 30 64 20 99 03/02/19 03:00 72 19 158/59 (92) 100 03/02/19 02:00 66 25 144/60 (88) 100 03/02/19 01:26 100 T-Piece 8.0 30 03/02/19 01:00 65 22 142/63 (89) 100 03/02/19 00:00 8.0 30 03/02/19 00:00 T-piece 8.0 03/02/19 00:00 65 03/02/19 00:00 98.5 64 22 147/57 (87) 100 03/01/19 23:00 69 20 149/57 (87) 100 03/01/19 22:53 88 20 100 T-Piece 8.0 30 85 20 99 03/01/19 22:00 70 20 100 T-Piece 8.0 30 66 20 99 03/01/19 22:00 66 21 142/61 (88) 100 03/01/19 21:00 70 20 137/58 (84) 100 03/01/19 20:53 71 129/58 03/01/19 20:00 8.0 30 03/01/19 20:00 98.3 71 19 129/58 (81) 100 03/01/19 20:00 74 03/01/19 20:00 T-piece 8.0 03/01/19 19:48 72 20 100 T-Piece 8.0 30 70 20 98 03/01/19 19:47 100 T-Piece 8.0 30 03/01/19 19:46 80 20 100 T-Piece 8.0 30 03/01/19 19:00 68 22 107/49 (68) 99 03/01/19 18:00 73 21 124/58 (80) 100 03/01/19 17:00 76 23 99/44 (62) 100 03/01/19 16:00 T-piece 8.0 03/01/19 16:00 77 03/01/19 16:00 74 23 117/45 (69) 100 03/01/19 16:00 6.0 28 03/01/19 15:11 75 16 100 T-Piece 8.0 30 76 17 100 03/01/19 15:00 74 20 108/47 (67) 98 03/01/19 14:00 75 22 122/82 (95) 96 03/01/19 14:00 77 24 99/38 (58) 98 03/01/19 13:18 98 T-Piece 8.0 30 03/01/19 13:00 74 21 117/50 (72) 100 03/01/19 12:00 6.0 28 03/01/19 12:00 77 03/01/19 12:00 98.7 76 21 130/50 (76) 100 03/01/19 12:00 T-piece 8.0 Height (Feet): 5 Height (Inches): 5.00 Weight (Pounds): 180 HEENT: status post trach Respiratory/Chest: lungs clear Cardiovascular: normal rate, regular rhythm, no gallop/murmur Abdomen: soft, non tender, other - GT Extremities: no edema, other - right arm PICC Laboratory Tests Test 03/02/19 03:00 White Blood Count 7.7 K/UL (4.8-10.8) Red Blood Count 3.95 M/UL (4.20-5.40) L Hemoglobin 11.0 G/DL (12.0-16.0) L Hematocrit 33.8 % (37.0-47.0) L Mean Corpuscular Volume 86 FL (80-99) Mean Corpuscular Hemoglobin 27.7 PG (27.0-31.0) Mean Corpuscular Hemoglobin Concent 32.4 G/DL (32.0-36.0) Red Cell Distribution Width 17.0 % (11.6-14.8) H Platelet Count 199 K/UL (150-450) Mean Platelet Volume 6.0 FL (6.5-10.1) L Neutrophils (%) (Auto) 50.5 % (45.0-75.0) Lymphocytes (%) (Auto) 36.8 % (20.0-45.0) Monocytes (%) (Auto) 6.3 % (1.0-10.0) Eosinophils (%) (Auto) 5.1 % (0.0-3.0) H Basophils (%) (Auto) 1.2 % (0.0-2.0) Sodium Level 143 MMOL/L (136-145) Potassium Level 5.4 MMOL/L (3.5-5.1) H Chloride Level 109 MMOL/L (98-107) H Carbon Dioxide Level 30 MMOL/L (21-32) Anion Gap 4 mmol/L (5-15) L Blood Urea Nitrogen 31 mg/dL (7-18) H Creatinine 1.1 MG/DL (0.55-1.30) Estimat Glomerular Filtration Rate mL/min (>60) Glucose Level 91 MG/DL (74-106) Calcium Level 9.2 MG/DL (8.5-10.1) Current Medications Medications (Trade) Dose Ordered Sig/Maicol Route PRN Reason Start Time Stop Time Status Last Admin Dose Admin Acetaminophen (Tylenol) 650 mg Q4H PRN GT Mild Pain/Temp > 100.5 02/18/19 05:44 03/05/19 05:43 02/23/19 21:33 Acetylcysteine (Mucomyst) 200 mg Q4HRT N 02/28/19 03:00 03/29/19 16:59 03/02/19 07:08 Albuterol/ Ipratropium (Albuterol/ Ipratropium) 3 ml Q4HRT [facility] 02/27/19 15:00 03/04/19 14:59 03/02/19 07:08 Amikacin Sulfate (Amikin) 500 mg Q12HR@ INH 02/27/19 22:00 03/06/19 21:59 03/02/19 10:01 Atropine Sulfate (Atropine Opth Adriana) 1 drop TID SL 02/18/19 09:00 03/12/19 09:29 03/02/19 08:16 Bacitracin (Bacitracin 15gm tube) 1 applic THREE TIMES A DAY TOPIC 02/28/19 18:30 03/30/19 18:29 03/02/19 08:17 Chlorhexidine Gluconate (Cesilia-Hex 2%) 1 applic DAILY@1999 TOPIC 02/18/19 20:00 03/12/19 19:59 03/01/19 20:07 Heparin Sodium (Porcine) (Heparin 5000 units/ml) 5,000 units EVERY 12 HOURS SUBQ 02/18/19 09:00 03/16/19 23:14 03/02/19 08:19 Hydralazine HCl (Apresoline) 25 mg Q4H PRN GT SBP above 160 02/18/19 05:46 03/09/19 05:45 03/02/19 04:02 Levetiracetam (Keppra) 750 mg Q12HR GT 02/18/19 09:00 03/16/19 23:29 03/02/19 08:18 Meropenem 1 gm/ Sodium Chloride 55 ml @ 110 mls/hr Q12HR IVPB 02/27/19 11:00 03/04/19 10:59 03/02/19 08:17 Metoclopramide HCl (Reglan) 10 mg Q6H PRN IVP Nausea & Vomiting 02/18/19 05:46 03/09/19 05:45 Metoprolol Tartrate (Lopressor) 25 mg Q12HR GT 02/18/19 09:00 03/16/19 23:29 03/02/19 08:18 Pantoprazole (Protonix) 40 mg Q12HR IVP 02/18/19 09:00 03/16/19 23:29 03/02/19 08:17 Geovany Yang MD Mar 02, 2019 11:16"
--- NOTE | 2019-03-02 12:30 | NUR ---
NURSE NOTES: Pt suctioned and oral care performed. Pt is clean, with purewick draining well. No distress noted at this time.
--- NOTE | 2019-03-02 12:50 | NUR ---
CASE MANAGEMENT:REVIEW 03/02/19 SI: SEPSIS. PNA SACRAL DECUB. CHRONIC RESP FAILURE 98.6 64 22 113/49 98% ON 8L VIA T-PIECE K+5.4 IS: AMIKACIN INH Q12HRS IV MEROPENEM Q12 KEPPRA GT Q12 LOPRESSOR GT IV PROTONIX Q12 HEPARIN SQ Q12 ATROPINE SL TID MUCOMYST HHN Q4HRS RTC IVF@50/HR : ICU STATUS PLAN: SEEKING SUBACUTE THAT WILL ACCEPT PATIENT
--- NOTE | 2019-03-02 13:36 | Nephrology Progress Note ---
Assessment/Plan Problem List: (1) Acute renal failure (ARF) Assessment: Cr stable (2) Chronic respiratory failure (3) Anemia (4) Sepsis Assessment Acute renal failure Respiratory failure - Trach Low Mag- Low k , Low Na Anemia UTI / Sepsis Proteinuria / HypoAlbuminemia high Trigs Sz decubs bed bound DNR Plan high K likely hemolysis K and Mag and Phos supplement as needed Hydrate Urine studies avoid Nephrotoxics mag K Phos supplements as needed monitor renal parameters Subjective ROS Limited/Unobtainable: Yes Objective Objective Last 24 Hour Vital Signs Date Time Temp Pulse Resp B/P (MAP) Pulse Ox O2 Delivery O2 Flow Rate FiO2 03/02/19 13:14 100 T-Piece 8.0 30 03/02/19 12:00 8.0 30 03/02/19 12:00 98.6 64 22 113/49 (70) 98 03/02/19 12:00 T-piece 8.0 03/02/19 11:32 68 18 100 T-Piece 8.0 30 67 22 98 03/02/19 11:00 67 22 128/58 (81) 99 03/02/19 10:02 78 18 100 T-Piece 8.0 30 81 22 97 03/02/19 10:00 72 22 129/62 (84) 99 03/02/19 09:00 69 23 152/57 (88) 100 03/02/19 08:18 68 142/59 03/02/19 08:17 66 03/02/19 08:00 T-piece 8.0 03/02/19 08:00 8.0 30 03/02/19 08:00 98.7 65 19 142/59 (86) 100 03/02/19 07:08 66 22 100 T-Piece 8.0 30 65 23 100 03/02/19 07:08 65 23 100 T-Piece 8.0 30 03/02/19 07:08 100 T-Piece 8.0 30 03/02/19 07:00 64 21 139/57 (84) 99 03/02/19 06:00 85 25 154/59 (90) 99 03/02/19 05:00 71 21 150/67 (94) 100 03/02/19 04:02 161/59 03/02/19 04:00 64 03/02/19 04:00 8.0 30 03/02/19 04:00 98.5 66 20 161/59 (93) 100 03/02/19 04:00 T-piece 8.0 03/02/19 03:01 66 20 100 T-Piece 8.0 30 64 20 99 03/02/19 03:00 72 19 158/59 (92) 100 03/02/19 02:00 66 25 144/60 (88) 100 03/02/19 01:26 100 T-Piece 8.0 30 03/02/19 01:00 65 22 142/63 (89) 100 03/02/19 00:00 8.0 30 03/02/19 00:00 T-piece 8.0 03/02/19 00:00 65 03/02/19 00:00 98.5 64 22 147/57 (87) 100 03/01/19 23:00 69 20 149/57 (87) 100 03/01/19 22:53 88 20 100 T-Piece 8.0 30 85 20 99 03/01/19 22:00 70 20 100 T-Piece 8.0 30 66 20 99 03/01/19 22:00 66 21 142/61 (88) 100 03/01/19 21:00 70 20 137/58 (84) 100 03/01/19 20:53 71 129/58 03/01/19 20:00 8.0 30 03/01/19 20:00 98.3 71 19 129/58 (81) 100 03/01/19 20:00 74 03/01/19 20:00 T-piece 8.0 03/01/19 19:48 72 20 100 T-Piece 8.0 30 70 20 98 03/01/19 19:47 100 T-Piece 8.0 30 03/01/19 19:46 80 20 100 T-Piece 8.0 30 03/01/19 19:00 68 22 107/49 (68) 99 03/01/19 18:00 73 21 124/58 (80) 100 03/01/19 17:00 76 23 99/44 (62) 100 03/01/19 16:00 T-piece 8.0 03/01/19 16:00 77 03/01/19 16:00 74 23 117/45 (69) 100 03/01/19 16:00 6.0 28 03/01/19 15:11 75 16 100 T-Piece 8.0 30 76 17 100 03/01/19 15:00 74 20 108/47 (67) 98 03/01/19 14:00 75 22 122/82 (95) 96 03/01/19 14:00 77 24 99/38 (58) 98 Intake and Output 03/01/19 03/02/19 19:00 07:00 Intake Total 610 ml 475 ml Output Total 800 ml Balance 610 ml -325 ml Free Water 50 ml IV Total 110 ml 55 ml Tube Feeding 420 ml 420 ml Other 30 ml Output Urine Total 800 ml # Bowel Movements 1 Laboratory Tests 03/02/19 03:00: White Blood Count 7.7, Red Blood Count 3.95L, Hemoglobin 11.0L, Hematocrit 33.8L , Mean Corpuscular Volume 86, Mean Corpuscular Hemoglobin 27.7, Mean Corpuscular Hemoglobin Concent 32.4, Red Cell Distribution Width 17.0H, Platelet Count 199, Mean Platelet Volume 6.0L, Neutrophils (%) (Auto) 50.5, Lymphocytes (%) (Auto) 36.8, Monocytes (%) (Auto) 6.3, Eosinophils (%) (Auto) 5.1H, Basophils (%) (Auto) 1.2, Sodium Level 143, Potassium Level 5.4H, Chloride Level 109H, Carbon Dioxide Level 30, Anion Gap 4L, Blood Urea Nitrogen 31H, Creatinine 1.1, Estimat Glomerular Filtration Rate , Glucose Level 91, Calcium Level 9.2 Height (Feet): 5 Height (Inches): 5.00 Weight (Pounds): 180 General Appearance: no apparent distress EENT: other - trach Cardiovascular: normal rate Respiratory/Chest: decreased breath sounds Abdomen: soft Objective no change Eric Cortez MD Mar 02, 2019 13:36
--- NOTE | 2019-03-02 13:41 | NUR ---
RD ASSESSMENT & RECOMMENDATIONS SEE CARE ACTIVITY FOR COMPLETE ASSESSMENT DAILY ESTIMATED NEEDS: Needs based on Pulmonary, wounds, bedbound/ 60kg adj 25-28 kcals/kg 7927-6919 total kcals 1.25-2 g protein/kg 75-120 g total protein 25-30 mL/kg 8574-5413 total fluid mLs NUTRITION DIAGNOSIS: * Increased kcal/prot needs R/T wound healing as evidenced by BL buttocks and sacral wound photos, refer to WC eval. * Swallowing difficulty R/T respiratory status as evidenced by pt on T-collar, now back the vent, PEG dep, TF changed to low rate at this time due to episodes of vomiting + residuals. CURRENT TF: Glucerna 1.5 @ 35ml/hr x 24 hrs (per family request per RN) ENTERAL NUTRITION RECOMMENDATIONS: Glucerna 1.5 @ 45ml/hr x 24 hrs to provide 1080ml, 1620kcal, 89g prot, 820ml free water - W/ continued good TF tolerance, rec to increase goal rate to 45ml/hr x 24 hrs to meet 100% est kcal/prot needs - HOB over 30 degrees - Water flush of 170ml q 6 hrs W/ continued up trend in potassium (5.1-> 5.4), rec TF change to NEPRO. Goal of 35ml/hr x24 hrs to provide 840ml, 1512 kcal, 68g pro, 611ml free H2O. Rec to add PROSOURCE 1 pack daily (11g pro) to better meet pro needs. Flush per MD. ADDITIONAL RECOMMENDATIONS: 1) Re-calibrated bedscale wt for accurate CBW 2) Wound healing: Add Cristian 1pkt BID w/ continued good TF tolerace + MVI x1 daily 3) Monitor lytes, replete as needed 4) Monitor BGs closely, need for NISS 5) Monitor TF tolerance: rec to increase TF as above w/ continued good TF tolerance (pt on low rate of 35ml/hr per family request per RN)
--- NOTE | 2019-03-02 16:00 | NUR ---
NURSE NOTES: Dr. Madera at bedside assessing pt. Updated him on pt's current condition. No new orders at this time.
--- NOTE | 2019-03-02 18:39 | Surgery Progress Note ---
Surgery Progress Note Subjective Additional Comments pending d/c exam stable labs noted Objective Last 24 Hour Vital Signs Date Time Temp Pulse Resp B/P (MAP) Pulse Ox O2 Delivery O2 Flow Rate FiO2 03/02/19 18:00 67 18 155/75 (101) 100 03/02/19 17:00 63 20 102/48 (66) 100 03/02/19 16:00 98.6 66 20 144/66 (92) 100 03/02/19 16:00 T-piece 8.0 03/02/19 16:00 63 03/02/19 16:00 8.0 30 03/02/19 15:02 72 23 100 T-Piece 8.0 30 71 19 100 03/02/19 15:00 70 18 141/59 (86) 100 03/02/19 14:00 66 20 146/64 (91) 100 03/02/19 13:14 100 T-Piece 8.0 30 03/02/19 13:00 63 21 122/58 (79) 98 03/02/19 12:00 8.0 30 03/02/19 12:00 98.6 64 22 113/49 (70) 98 03/02/19 12:00 T-piece 8.0 03/02/19 12:00 69 03/02/19 11:32 68 18 100 T-Piece 8.0 30 67 22 98 03/02/19 11:00 67 22 128/58 (81) 99 03/02/19 10:02 78 18 100 T-Piece 8.0 30 81 22 97 03/02/19 10:00 72 22 129/62 (84) 99 03/02/19 09:00 69 23 152/57 (88) 100 03/02/19 08:18 68 142/59 03/02/19 08:17 66 03/02/19 08:00 T-piece 8.0 03/02/19 08:00 8.0 30 03/02/19 08:00 98.7 65 19 142/59 (86) 100 03/02/19 07:08 66 22 100 T-Piece 8.0 30 65 23 100 03/02/19 07:08 65 23 100 T-Piece 8.0 30 03/02/19 07:08 100 T-Piece 8.0 30 03/02/19 07:00 64 21 139/57 (84) 99 03/02/19 06:00 85 25 154/59 (90) 99 03/02/19 05:00 71 21 150/67 (94) 100 03/02/19 04:02 161/59 03/02/19 04:00 64 03/02/19 04:00 8.0 30 03/02/19 04:00 98.5 66 20 161/59 (93) 100 03/02/19 04:00 T-piece 8.0 03/02/19 03:01 66 20 100 T-Piece 8.0 30 64 20 99 03/02/19 03:00 72 19 158/59 (92) 100 03/02/19 02:00 66 25 144/60 (88) 100 03/02/19 01:26 100 T-Piece 8.0 30 03/02/19 01:00 65 22 142/63 (89) 100 03/02/19 00:00 8.0 30 03/02/19 00:00 T-piece 8.0 03/02/19 00:00 65 03/02/19 00:00 98.5 64 22 147/57 (87) 100 03/01/19 23:00 69 20 149/57 (87) 100 03/01/19 22:53 88 20 100 T-Piece 8.0 30 85 20 99 03/01/19 22:00 70 20 100 T-Piece 8.0 30 66 20 99 03/01/19 22:00 66 21 142/61 (88) 100 03/01/19 21:00 70 20 137/58 (84) 100 03/01/19 20:53 71 129/58 03/01/19 20:00 8.0 30 03/01/19 20:00 98.3 71 19 129/58 (81) 100 03/01/19 20:00 74 03/01/19 20:00 T-piece 8.0 03/01/19 19:48 72 20 100 T-Piece 8.0 30 70 20 98 03/01/19 19:47 100 T-Piece 8.0 30 03/01/19 19:46 80 20 100 T-Piece 8.0 30 03/01/19 19:00 68 22 107/49 (68) 99 I&O Intake and Output 03/01/19 03/02/19 19:00 07:00 Intake Total 610 ml 475 ml Output Total 800 ml Balance 610 ml -325 ml Free Water 50 ml IV Total 110 ml 55 ml Tube Feeding 420 ml 420 ml Other 30 ml Output Urine Total 800 ml # Bowel Movements 1 Dressing: other Wound: other Drains: other Cardiovascular: RSR Respiratory: decreased breath sounds Abdomen: soft, present bowel sounds Extremities: no cyanosis Laboratory Tests Test 03/02/19 03:00 White Blood Count 7.7 K/UL (4.8-10.8) Red Blood Count 3.95 M/UL (4.20-5.40) L Hemoglobin 11.0 G/DL (12.0-16.0) L Hematocrit 33.8 % (37.0-47.0) L Mean Corpuscular Volume 86 FL (80-99) Mean Corpuscular Hemoglobin 27.7 PG (27.0-31.0) Mean Corpuscular Hemoglobin Concent 32.4 G/DL (32.0-36.0) Red Cell Distribution Width 17.0 % (11.6-14.8) H Platelet Count 199 K/UL (150-450) Mean Platelet Volume 6.0 FL (6.5-10.1) L Neutrophils (%) (Auto) 50.5 % (45.0-75.0) Lymphocytes (%) (Auto) 36.8 % (20.0-45.0) Monocytes (%) (Auto) 6.3 % (1.0-10.0) Eosinophils (%) (Auto) 5.1 % (0.0-3.0) H Basophils (%) (Auto) 1.2 % (0.0-2.0) Sodium Level 143 MMOL/L (136-145) Potassium Level 5.4 MMOL/L (3.5-5.1) H Chloride Level 109 MMOL/L (98-107) H Carbon Dioxide Level 30 MMOL/L (21-32) Anion Gap 4 mmol/L (5-15) L Blood Urea Nitrogen 31 mg/dL (7-18) H Creatinine 1.1 MG/DL (0.55-1.30) Estimat Glomerular Filtration Rate mL/min (>60) Glucose Level 91 MG/DL (74-106) Calcium Level 9.2 MG/DL (8.5-10.1) Plan Problems: (1) Sacral decubitus ulcer Assessment & Plan: This is a 83-year-old female with multiple medical committees that is currently admitted for medical care and management and identified to have multiple wounds requiring care. On admission patient noted to have a resolved sacral decubitus ulcer. Has had prior care and is well-healed at this time. Will ensure it does not open up again. Patient has a right ischial decubitus ulcer that is resolved. Scar intact and well formed. Will monitor to ensure it does not open up again. Patient has a left ischial decubitus ulcer that can be identified to be stage IV with palpable bone that has been resolving as noted by the periwound tissue and scar but open area approximately 1 cm x 1.5 cm few millimeters deep to bone identified. Unsure if this is been to be completely healed prior and has since opened or if has been healing at this level. No foul odor no drainage was unsure local wound care until healed Bilateral heels soft without signs of injury Resolving pressure injury L ischium(L)1.8cm x (W)1cm.Scattered biofilm at base of wound. Edges flat and adherent with surrounding hyperpigmentation. No odor or exudate noted. Sacrum is pale pink with surrounding hyperpigmentation. Hyperpigmentation R ischium with small sheared area centrally.No areas of erythema or exudate noted. Both heels are soft but blanchable. Skin Assessed under collar of trach and no evidence of skin breakdown noted. All wound Tx. are effective and continued as ordered. Pt ahs an APM/Belén mattress overlay and is being repositioned per protocols and per tolerance.No new skin concerns noted. Full thickness pressure injury L Ischium with small amt biofilm (L)1.8cm x (W) 1cm. Surrounding pink hyperpigmentation. No odor or exudate noted. [place] hyperpigmentation from previous wound noted to sacrum. Pt also noted to have Cat 2 Skin Tear dorsal L hand, L 5th metatarsal extending into palm of hand. 80% skin flap in situ.Both heels are dry firm and blanchable. No other skin concerns noted. Cleanse Blister Dorsal and palm of L hand with saline. Versatel One Silicone Contact Layer(Applied). Apply Silvasorb Gel. Wrap with Kerlix Gauze.Change every 7 days and prn. Apply Moisture Barrier to sacrum. Cover with Optifoam drsg. Change every 3 days and prn. Cleanse L ischial wound with saline. Apply Therahoney. Apply Moisture Barrier Paste periwound. Cover with Optifoam drsg. Change every 3 days and prn. Apply Cavilon Skin Barrier to both heels. Cover each heel with Optifoam drsg. Change every 7 days and prn. APM/BELÉN Mattress overlay. Reposition at least every 2hours or as tolerated. Off-load heels with pillow. Nutritional optimization We will monitor follow with recommendations cont with above upon d/c (2) Sepsis Assessment & Plan: IV abx as per ID trend labs improving wounds unlikely etiology likely respiratory imaging noted and okay abnormal lft's stable PICC on Abx in ICU for desaturation CXR with consolidation Evidence of left lower lobe pneumonia, also previously demonstrated Gastrostomy in good position Mild diastasis of the rectus abdominis musculature again demonstrated Retrosacral decubitus changes, better depicted on prior exam which included the pelvis Small hiatal hernia with evidence of trace gastroesophageal reflux (3) Feeding by G-tube Assessment & Plan: DAILY ESTIMATED NEEDS: Needs based on Pulmonary, wounds, bedbound/ 60kg adj 25-28 kcals/kg 9623-2983 total kcals 1.25-2 g protein/kg 75-120 g total protein 25-30 mL/kg 3460-4378 total fluid mLs NUTRITION DIAGNOSIS: * Swallowing difficulty R/T respiratory status as evidenced by pt on T-collar, now back the vent, PEG dep, TF changed to low rate at this time due to episodes of vomiting + residuals. * Increased kcal/prot needs R/T wound healing as evidenced by BL buttocks and sacral wound photos, refer to eval. (CURRENT TF:Glucerna 1.5 @35ml) ENTERAL NUTRITION RECOMMENDATIONS: VITAL AF 1.2 @ 55ml/hr x 24 hrs to provide 1320ml, 1584kcal, 99g prot, 1060ml free water - Once medically appropriate to resume TF, rec to initiate elemental and carb control formula of Vital 1.2 for possible improved tolerance - Initiate VITAL 1.2 @ 25ml/hr x 6hrs, advance 10ml q 4-6 hrs as tolerated to goal rate - Flush per MD/ HOB over 30 degrees ADDITIONAL RECOMMENDATIONS: 1) Re-calibrated bedscale wt for accurate CBW 2) Wound healing: Add Critsian 1pkt BID w/ improved Tf tolerace + MVI x1 daily 3) Monitor lytes, replete as needed (low Mg, K) 4) Monitor NPO status, ability to resume TF. -> held on and off due to vomiting since 02/02 5) SSI prn resume tube feeds (4) Chronic vegetative state Assessment & Plan: incontinence of urine and stool. can soil dressings. nurses doing great job with monitoring and changing prn (5) Leukocytosis Walter [place] Mar 02, 2019 18:39
--- NOTE | 2019-03-02 19:20 | NUR ---
HAND-OFF: Report given to JEANNINE Armstrong.
--- NOTE | 2019-03-02 20:08 | NUR ---
NURSE NOTES: RECEIVED REPORT ARELI RN PT OPEN TO TOUCH BUT DOES NOT FOLLOWS COMMAND TRACH SHILLY 6 -T-PIECE 30 O/O NO ACUTE RESP DISTRESS NOTEDREPOSITION AND SUCTION
[2019-03-02] MEDS: Dyna-Hex 2% Top Sol 2oz TOPIC SCH (21:37)
--- NOTE | 2019-03-02 22:00 | NUR ---
NURSE NOTES: reposition and suction tolerating tube feeding
[2019-03-03] VITALS (24 sets, daily range): BP systolic 96–166; BP diastolic 44–90
--- NOTE | 2019-03-03 | NUR ---
NURSE NOTES: vs stable reposition and suction
--- NOTE | 2019-03-03 | NUR ---
NURSE NOTES: no acute respiratory distress
[2019-03-03] MEDS: Acetylcysteine 20% Soln 4ml HHN SCH ×7 (00:02→23:33)
[2019-03-03] MEDS: Albuterol/Ipratropium 3ml neb HHN SCH ×7 (00:03→23:33)
--- NOTE | 2019-03-03 01:45 | Progress Note ---
DATE: 02/26/2019 CARDIOLOGY PROGRESS NOTE Late entry for 02/26/2019. SUBJECTIVE: Condition largely unchanged. Still on ventilator support. Congested with secretions by trach site. She is on a T-tube. OBJECTIVE: VITAL SIGNS: Blood pressure 150/63, pulse 71, and respiratory rate 24. Sinus rhythm. Exam unchanged. PLAN: 1. Requires antimicrobials. 2. Respiratory hygiene and is not weanable. 3. Awaiting placement presently with no signs of pulmonary venous congestion and does not require any diuresis or change in current cardiovascular regimen. Bg Hagen M.D. DR: CHARLEE JOB#: [id number] CC:
--- NOTE | 2019-03-03 02:00 | Progress Note ---
DATE: 03/01/2019 CARDIOLOGY PROGRESS NOTE Late entry for 03/01/2019. SUBJECTIVE: Blood pressure parameters low this morning, otherwise have been stable on T-tube. Thin moderate secretions. OBJECTIVE: LUNGS: Bilateral rhonchi. CARDIAC: Regular rhythm and rate. Normal S1 and S2. ABDOMEN: Soft. G-tube intact. EXTREMITIES: Trace edema. NEUROLOGIC: Unresponsive. LABORATORY DATA: White count is 8.5 and hemoglobin 9.5. BUN 32 and creatinine 1.1. IMPRESSION: 1. Dropping blood pressure trend, watch for deterioration which may suggest the new infection. 2. Hypovolemia. PLAN: 1. Trach care. 2. Antimicrobials p.r.n. 3. Antihypertensives only other than beta-martha, which should be held for further drop in blood pressure. 4. Volume challenge for persistently low blood pressure. Bg Hagen M.D. DR: CHARLEE JOB#: [id number] CC:
--- NOTE | 2019-03-03 02:00 | NUR ---
NURSE NOTES: reposition and suction tolerating tube feeding no residual
--- NOTE | 2019-03-03 04:00 | NUR ---
NURSE NOTES: complete bed bath oral care fatou and mota care wound care done had small bm reposition and suction
--- NOTE | 2019-03-03 04:45 | Progress Note ---
DATE: 03/02/2019 CARDIOLOGY PROGRESS NOTE SUBJECTIVE: The patient's potassium is elevated. Kayexalate was given. Blood pressure parameters are now stable. No recurring hypotensive episodes since yesterday morning. OBJECTIVE: NECK: Thin trach secretions. Trach collar. LUNGS: Bilateral rhonchi. CARDIAC: Regular rhythm and rate. Normal S1, S2. ABDOMEN: Soft with G-tube. EXTREMITIES: No edema. LABORATORY AND DIAGNOSTIC DATA: Potassium 5.4, BUN 31, creatinine 1.1. White count 7.7, hemoglobin 11. IMPRESSION: 1. Sepsis. 2. Healthcare-acquired pneumonia. 3. Chronic diastolic congestive heart failure. 4. Advanced dementia. 5. Hypertensive heart disease. 6. Acute on chronic kidney disease, improved. 7. Hyperkalemia, corrected. PLAN: 1. Continue current regimen. 2. No change in medications. 3. Avoid tighter blood pressure control for now. 4. PRN hydralazine for blood pressure spikes. 5. Trend natriuretic peptide assay. Bg Hagen M.D. DR: IOANA JOB#: [id number] CC:
--- NOTE | 2019-03-03 06:00 | NUR ---
NURSE NOTES: tolerating tube feeding reposition and suction vs stable
[2019-03-03 07:05] LABS: BASOPHILS % (AUTO) 1.1 % (0.0-2.0); EOSINOPHILS % (AUTO) 6.5 % (0.0-3.0); HEMOGLOBIN 9.8 G/DL (12.0-16.0); LYMPHOCYTES % (AUTO) 34.9 % (20.0-45.0); MEAN CORPUSCULAR VOLUME 86 FL (80-99); NEUTROPHILS % (AUTO) 51.4 % (45.0-75.0); PLATELET COUNT 213 K/UL (150-450); RED BLOOD COUNT 3.61 M/UL (4.20-5.40); RED CELL DISTRIBUTION WIDTH 17.3 % (11.6-14.8); WHITE BLOOD COUNT 7.8 K/UL (4.8-10.8)
[2019-03-03 07:11] LABS: ALANINE AMINOTRANSFERASE 26 U/L (12-78); ALBUMIN 2.8 G/DL (3.4-5.0); ALBUMIN/GLOBULIN RATIO 0.5 (1.0-2.7); ALKALINE PHOSPHATASE 107 U/L (46-116); ANION GAP 6 mmol/L (5-15); ASPARTATE AMINO TRANSFERASE 25 U/L (15-37); BILIRUBIN,TOTAL 0.3 MG/DL (0.2-1.0); BLOOD UREA NITROGEN 28 mg/dL (7-18); CALCIUM 8.9 MG/DL (8.5-10.1); CARBON DIOXIDE 32 MMOL/L (21-32); CHLORIDE 107 MMOL/L (98-107); CREATININE 0.9 MG/DL (0.55-1.30); SODIUM 145 MMOL/L (136-145)
[2019-03-03 07:22] LABS: PHOSPHORUS 3.6 MG/DL (2.5-4.9)
--- NOTE | 2019-03-03 07:38 | NUR ---
HAND-OFF: Report given to annmarie mann using sbar.
--- NOTE | 2019-03-03 07:55 | NUR ---
NURSE NOTES: Report received from JEANNINE Armstrong. Patient open eyes, afebrile and no s/s acute distress.On trac/vent Shiley 6, T-Piece at 35%.GT in place running Glucerna at 35cc/hr.Placement checked and intact, HOB elevate to prevent aspiration.External catheter in place draining clear yellow straw urine with apparent sediment.Elevated HOB to prevent aspiration.DEBBIE PICC TLC,dressing clean dry and intact.Noted with large amount white secretion suctioned as tolerated and mouth care done.Turn and reposition for skin management.Call light within easy reach, bed in low position,3/4 siderails up for safety. Will continue close monitoring.
[2019-03-03] MEDS: Meropenem 1 GM in NS 55 ML IVPB SCH ×2 (08:29→20:36)
[2019-03-03] MEDS: levETIRAcetam 500mg/5ml Liquid GT SCH ×2 (08:30→20:26)
[2019-03-03] MEDS: Heparin 5000 units/ml inj SUBQ SCH ×2 (08:30→20:29)
[2019-03-03] MEDS: Bacitracin Oint 15gm Tube TOPIC SCH ×3 (08:30→17:20)
--- NOTE | 2019-03-03 09:37 | Pulmonology Progress Note ---
Assessment/Plan Assessment/Plan Impression: Sepsis syndrome Pneumonia VDRF, Trach, G tube, Hypertension, Cardiac disease, Dementia, Previous CVA, Seizure disorder, Respiratory failure with hypoxia Anemia Sacral ulcer renal cyst pulmonary congestion Plan respiratory care to continue as is atropine as needed neb therapy as is SNF meds as is off vent as able Oxygen as needed Monitor labs for change monitor imaging feeds as tolerated monitor albumin levels aspiration precautions Patient is a DNR. No CPR. ICU care reviewed medications/laboratory data/nursing notes/ICU care reviewed in detail note reviewed and edited care discussed with RN and RT ICU time spent 37 minutes Subjective ROS Limited/Unobtainable: Yes Allergies: Coded Allergies: CODEINE (Verified Allergy, Unknown, HIVES, 09/15/09) Subjective respiratory care noted congestion- noted ICU care reviewed supportive care and weekend events reviewed RT care reviewed overnight care noted findings reviewed and discussed seen earlier this am Objective Last 24 Hour Vital Signs Date Time Temp Pulse Resp B/P (MAP) Pulse Ox O2 Delivery O2 Flow Rate FiO2 03/03/19 09:00 61 15 149/53 (85) 98 03/03/19 08:28 60 134/90 03/03/19 08:00 8.0 30 03/03/19 08:00 T-piece 8.0 03/03/19 08:00 98.4 56 20 134/90 (105) 100 03/03/19 07:23 54 20 100 T-Piece 8.0 30 03/03/19 07:23 100 T-Piece 8.0 30 03/03/19 07:22 49 20 100 T-Piece 8.0 30 55 21 99 03/03/19 07:00 72 17 159/51 (87) 99 03/03/19 06:00 72 17 159/51 (87) 99 03/03/19 05:00 61 21 160/49 (86) 100 03/03/19 04:00 63 03/03/19 04:00 8.0 30 03/03/19 04:00 T-piece 8.0 03/03/19 04:00 98.4 58 19 166/63 (97) 100 03/03/19 03:19 56 24 100 T-Piece 8.0 30 57 22 100 03/03/19 03:00 59 22 141/54 (83) 100 03/03/19 02:00 58 21 148/54 (85) 100 03/03/19 01:10 100 T-Piece 8.0 30 03/03/19 01:00 57 22 122/44 (70) 100 03/03/19 00:00 T-piece 8.0 03/03/19 00:00 8.0 30 03/03/19 00:00 76 03/03/19 00:00 98.6 58 23 148/58 (88) 100 03/02/19 23:59 56 24 100 T-Piece 8.0 30 60 23 100 03/02/19 23:00 81 20 134/66 (88) 100 03/02/19 22:37 63 24 100 T-Piece 8.0 30 68 20 100 03/02/19 22:00 67 22 129/56 (80) 100 03/02/19 21:39 55 151/54 03/02/19 21:00 69 19 151/54 (86) 99 03/02/19 20:00 62 03/02/19 20:00 8.0 30 03/02/19 20:00 98.5 60 19 132/50 (77) 100 03/02/19 20:00 T-piece 8.0 03/02/19 19:26 67 21 100 T-Piece 8.0 30 63 20 100 03/02/19 19:26 63 20 100 T-Piece 8.0 30 03/02/19 19:26 100 T-Piece 8.0 30 03/02/19 19:00 70 19 156/62 (93) 100 03/02/19 18:00 67 18 155/75 (101) 100 03/02/19 17:00 63 20 102/48 (66) 100 03/02/19 16:00 98.6 66 20 144/66 (92) 100 03/02/19 16:00 T-piece 8.0 03/02/19 16:00 63 03/02/19 16:00 8.0 30 03/02/19 15:02 72 23 100 T-Piece 8.0 30 71 19 100 03/02/19 15:00 70 18 141/59 (86) 100 03/02/19 14:00 66 20 146/64 (91) 100 03/02/19 13:14 100 T-Piece 8.0 30 03/02/19 13:00 63 21 122/58 (79) 98 03/02/19 12:00 8.0 30 03/02/19 12:00 98.6 64 22 113/49 (70) 98 03/02/19 12:00 T-piece 8.0 03/02/19 12:00 69 03/02/19 11:32 68 18 100 T-Piece 8.0 30 67 22 98 03/02/19 11:00 67 22 128/58 (81) 99 03/02/19 10:02 78 18 100 T-Piece 8.0 30 81 22 97 03/02/19 10:00 72 22 129/62 (84) 99 Intake and Output 03/02/19 03/03/19 18:59 06:59 Intake Total 715 ml 525 ml Output Total 350 ml 550 ml Balance 365 ml -25 ml Free Water 50 ml IV Total 55 ml 55 ml Tube Feeding 420 ml 420 ml Other 240 ml Output Urine Total 350 ml 550 ml Objective WDWN NAD contracted off vent reduced breath sounds bilaterally with some rhonchi overall; no wheeze [id number] without MRG NABS nontender no HSM no CC minimal nonfocal nonverbal trach and gt reviewed and edited Laboratory Tests 03/03/19 06:30: White Blood Count 7.8, Red Blood Count 3.61L, Hemoglobin 9.8L, Hematocrit 31.0L , Mean Corpuscular Volume 86, Mean Corpuscular Hemoglobin 27.0, Mean Corpuscular Hemoglobin Concent 31.5L, Red Cell Distribution Width 17.3H, Platelet Count 213, Mean Platelet Volume 5.8L, Neutrophils (%) (Auto) 51.4, Lymphocytes (%) (Auto) 34.9, Monocytes (%) (Auto) 6.0, Eosinophils (%) (Auto) 6.5H, Basophils (%) (Auto) 1.1, Sodium Level 145, Potassium Level 4.0, Chloride Level 107, Carbon Dioxide Level 32, Anion Gap 6, Blood Urea Nitrogen 28H, Creatinine 0.9, Estimat Glomerular Filtration Rate , Glucose Level 83, Calcium Level 8.9, Phosphorus Level 3.6, Magnesium Level 2.0, Total Bilirubin 0.3, Aspartate Amino Transf (AST/SGOT) 25, Alanine Aminotransferase (ALT/SGPT) 26, Alkaline Phosphatase 107, C-Reactive Protein, Quantitative 0.8, Pro-B-Type Natriuretic Peptide 189H, Total Protein 8.5H, Albumin 2.8L, Globulin 5.7, Albumin/Globulin Ratio 0.5L Current Medications Medications (Trade) Dose Ordered Sig/Maicol Route PRN Reason Start Time Stop Time Status Last Admin Dose Admin Acetaminophen (Tylenol) 650 mg Q4H PRN GT Mild Pain/Temp > 100.5 02/18/19 05:44 03/05/19 05:43 02/23/19 21:33 Acetylcysteine (Mucomyst) 200 mg Q4HRT [facility] 02/28/19 03:00 03/29/19 16:59 03/03/19 07:22 Albuterol/ Ipratropium (Albuterol/ Ipratropium) 3 ml Q4HRT [facility] 02/27/19 15:00 03/04/19 14:59 03/03/19 07:22 Amikacin Sulfate (Amikin) 500 mg Q12HR@10,22 IN[facility] 02/27/19 22:00 03/06/19 21:59 03/02/19 22:36 Atropine Sulfate (Atropine Opth Adriana) 1 drop TID SL 02/18/19 09:00 03/12/19 09:29 03/03/19 08:30 Bacitracin (Bacitracin 15gm tube) 1 applic THREE TIMES A DAY TOPIC 02/28/19 18:30 03/30/19 18:29 03/03/19 08:30 Chlorhexidine Gluconate (Cesilia-Hex 2%) 1 applic DAILY@1999 TOPIC 02/18/19 20:00 03/12/19 19:59 03/02/19 21:37 Famotidine (Pepcid) 20 mg BID GT 03/02/19 18:00 04/01/19 17:59 03/03/19 08:28 Heparin Sodium (Porcine) (Heparin 5000 units/ml) 5,000 units EVERY 12 HOURS SUBQ 02/18/19 09:00 03/16/19 23:14 03/03/19 08:30 Hydralazine HCl (Apresoline) 25 mg Q4H PRN GT SBP above 160 02/18/19 05:46 03/09/19 05:45 03/02/19 04:02 Levetiracetam (Keppra) 750 mg Q12HR GT 02/18/19 09:00 03/16/19 23:29 12/3/19 08:30 Meropenem 1 gm/ Sodium Chloride 55 ml @ 110 mls/hr Q12HR IVPB 02/27/19 11:00 03/04/19 10:59 03/03/19 08:29 Metoclopramide HCl (Reglan) 10 mg Q6H PRN IVP Nausea & Vomiting 02/18/19 05:46 03/09/19 05:45 Metoprolol Tartrate (Lopressor) 25 mg Q12HR GT 02/18/19 09:00 03/16/19 23:29 03/03/19 08:28 Amaury Chan MD Mar 03, 2019 09:37
[2019-03-03] MEDS: Amikacin for Inhalation 2ML INH SCH ×2 (09:45→21:15)
--- NOTE | 2019-03-03 10:05 | NUR ---
NURSE NOTES: Patient turned and repositioned,mouth care done.HOB elevated to prevent aspiration with no significant change of condition.Will continue same care plan
--- NOTE | 2019-03-03 10:14 | General Progress Note ---
Assessment/Plan Problem List: (1) Seizure ICD Codes: R56.9 - Unspecified convulsions SNOMED: 02923763 (2) Anemia ICD Codes: D64.9 - Anemia, unspecified SNOMED: 939905166 Qualifiers: Qualified Codes: D64.9 - Anemia, unspecified (3) Sepsis ICD Codes: A41.9 - Sepsis, unspecified organism SNOMED: 48680691, 238612694 Qualifiers: Qualified Codes: A41.9 - Sepsis, unspecified organism (4) Respiratory failure with hypoxia ICD Codes: J96.91 - Respiratory failure, unspecified with hypoxia SNOMED: 31034212762278998 Qualifiers: Qualified Codes: J96.21 - Acute and chronic respiratory failure with hypoxia (5) HCAP (healthcare-associated pneumonia) ICD Codes: J18.9 - Pneumonia, unspecified organism SNOMED: 457547858, 298097140 (6) Sacral decubitus ulcer ICD Codes: L89.159 - Pressure ulcer of sacral region, unspecified stage SNOMED: 566751282 (7) HTN (hypertension) ICD Codes: I10 - Essential (primary) hypertension SNOMED: 81968756 (8) Chronic vegetative state ICD Codes: R40.3 - Persistent vegetative state SNOMED: 74503073 (9) Chronic respiratory failure ICD Codes: J96.10 - Chronic respiratory failure, unspecified whether with hypoxia or hypercapnia SNOMED: 14202518 (10) Limited mobility ICD Codes: Z74.09 - Other reduced mobility SNOMED: 2098211 Status: stable, progressing Assessment/Plan: vent prn as needed resp rx suctioning as needed gt feeds monitor for vomiting bowel regime monitor residuals sx rx monitor bp kayexylate x 1 repeat labs dc planning Subjective ROS Limited/Unobtainable: Yes Constitutional: Reports: malaise, weakness HEENT: Reports: no symptoms Cardiovascular: Reports: no symptoms Respiratory: Reports: shortness of breath, sputum Gastrointestinal/Abdominal: Reports: no symptoms Genitourinary: Reports: no symptoms Neurologic/Psychiatric: Reports: pre-existing deficit, seizure Endocrine: Reports: no symptoms Hematologic/Lymphatic: Reports: anemia Allergies: Coded Allergies: CODEINE (Verified Allergy, Unknown, HIVES, 09/15/09) All Systems: reviewed and negative except above Subjective no events. remains on the vent. intermittently congested. no fever or chills. overall the same sputum neg for kpc. Objective Last 24 Hour Vital Signs Date Time Temp Pulse Resp B/P (MAP) Pulse Ox O2 Delivery O2 Flow Rate FiO2 03/03/19 09:45 66 20 100 T-Piece 8.0 30 60 19 100 03/03/19 09:00 61 15 149/53 (85) 98 03/03/19 08:28 60 134/90 03/03/19 08:00 8.0 30 03/03/19 08:00 T-piece 8.0 03/03/19 08:00 98.4 56 20 134/90 (105) 100 03/03/19 07:23 54 20 100 T-Piece 8.0 30 03/03/19 07:23 100 T-Piece 8.0 30 03/03/19 07:22 49 20 100 T-Piece 8.0 30 55 21 99 03/03/19 07:00 72 17 159/51 (87) 99 03/03/19 06:00 72 17 159/51 (87) 99 03/03/19 05:00 61 21 160/49 (86) 100 03/03/19 04:00 63 03/03/19 04:00 8.0 30 03/03/19 04:00 T-piece 8.0 03/03/19 04:00 98.4 58 19 166/63 (97) 100 03/03/19 03:19 56 24 100 T-Piece 8.0 30 57 22 100 03/03/19 03:00 59 22 141/54 (83) 100 03/03/19 02:00 58 21 148/54 (85) 100 03/03/19 01:10 100 T-Piece 8.0 30 03/03/19 01:00 57 22 122/44 (70) 100 03/03/19 00:00 T-piece 8.0 03/03/19 00:00 8.0 30 03/03/19 00:00 76 03/03/19 00:00 98.6 58 23 148/58 (88) 100 03/02/19 23:59 56 24 100 T-Piece 8.0 30 60 23 100 03/02/19 23:00 81 20 134/66 (88) 100 03/02/19 22:37 63 24 100 T-Piece 8.0 30 68 20 100 03/02/19 22:00 67 22 129/56 (80) 100 03/02/19 21:39 55 151/54 03/02/19 21:00 69 19 151/54 (86) 99 03/02/19 20:00 62 03/02/19 20:00 8.0 30 03/02/19 20:00 98.5 60 19 132/50 (77) 100 03/02/19 20:00 T-piece 8.0 03/02/19 19:26 67 21 100 T-Piece 8.0 30 63 20 100 03/02/19 19:26 63 20 100 T-Piece 8.0 30 03/02/19 19:26 100 T-Piece 8.0 30 03/02/19 19:00 70 19 156/62 (93) 100 03/02/19 18:00 67 18 155/75 (101) 100 03/02/19 17:00 63 20 102/48 (66) 100 03/02/19 16:00 98.6 66 20 144/66 (92) 100 03/02/19 16:00 T-piece 8.0 03/02/19 16:00 63 03/02/19 16:00 8.0 30 03/02/19 15:02 72 23 100 T-Piece 8.0 30 71 19 100 03/02/19 15:00 70 18 141/59 (86) 100 03/02/19 14:00 66 20 146/64 (91) 100 03/02/19 13:14 100 T-Piece 8.0 30 03/02/19 13:00 63 21 122/58 (79) 98 03/02/19 12:00 8.0 30 03/02/19 12:00 98.6 64 22 113/49 (70) 98 03/02/19 12:00 T-piece 8.0 03/02/19 12:00 69 03/02/19 11:32 68 18 100 T-Piece 8.0 30 67 22 98 03/02/19 11:00 67 22 128/58 (81) 99 Intake and Output 03/02/19 03/03/19 18:59 06:59 Intake Total 715 ml 525 ml Output Total 350 ml 550 ml Balance 365 ml -25 ml Free Water 50 ml IV Total 55 ml 55 ml Tube Feeding 420 ml 420 ml Other 240 ml Output Urine Total 350 ml 550 ml Laboratory Tests 03/03/19 06:30: White Blood Count 7.8, Red Blood Count 3.61L, Hemoglobin 9.8L, Hematocrit 31.0L , Mean Corpuscular Volume 86, Mean Corpuscular Hemoglobin 27.0, Mean Corpuscular Hemoglobin Concent 31.5L, Red Cell Distribution Width 17.3H, Platelet Count 213, Mean Platelet Volume 5.8L, Neutrophils (%) (Auto) 51.4, Lymphocytes (%) (Auto) 34.9, Monocytes (%) (Auto) 6.0, Eosinophils (%) (Auto) 6.5H, Basophils (%) (Auto) 1.1, Sodium Level 145, Potassium Level 4.0, Chloride Level 107, Carbon Dioxide Level 32, Anion Gap 6, Blood Urea Nitrogen 28H, Creatinine 0.9, Estimat Glomerular Filtration Rate , Glucose Level 83, Calcium Level 8.9, Phosphorus Level 3.6, Magnesium Level 2.0, Total Bilirubin 0.3, Aspartate Amino Transf (AST/SGOT) 25, Alanine Aminotransferase (ALT/SGPT) 26, Alkaline Phosphatase 107, C-Reactive Protein, Quantitative 0.8, Pro-B-Type Natriuretic Peptide 189H, Total Protein 8.5H, Albumin 2.8L, Globulin 5.7, Albumin/Globulin Ratio 0.5L Height (Feet): 5 Height (Inches): 5.00 Weight (Pounds): 180 Objective General Appearance: WD/WN, confused. on trach collar Neck: supple Cardiovascular: normal rate, regular rhythm Respiratory/Chest: chest wall non-tender, rhonchi - bilaterally(minimal) Abdomen: normal bowel sounds, non tender, soft, no organomegaly Edema: no edema noted Arm (L), no edema noted Arm (R), no edema noted Leg (L), no edema noted Leg (R), no edema noted Pedal (L), no edema noted Pedal (R), no edema noted Generalized Neurologic: disoriented, unresponsive, aphasia Irvin Beltrán MD Mar 03, 2019 10:14
--- NOTE | 2019-03-03 11:16 | Infectious Diseases Prog Note ---
"Assessment/Plan Assessment/Plan antibiotics : meropenem, inhaled amikacin A 1. UTI with proteus s/p rx 2. respiratory failure 3. hypertension 4. CVA 5. dementia 6. sacral decubitus ulcer 7. rectal VRE colonization 8. acenitobacter | enterobacter | klebsiella | pseudomonas pneumonia 9. renal failure resolved P 1. continue meropenem, inhaled amikacin 2 more days 2. will follow up cultures Subjective ROS Limited/Unobtainable: Yes Allergies: Coded Allergies: CODEINE (Verified Allergy, Unknown, HIVES, 09/15/09) Objective Vital Signs Last 24 Hour Vital Signs Date Time Temp Pulse Resp B/P (MAP) Pulse Ox O2 Delivery O2 Flow Rate FiO2 03/03/19 09:45 66 20 100 T-Piece 8.0 30 60 19 100 03/03/19 09:00 61 15 149/53 (85) 98 03/03/19 08:28 60 134/90 03/03/19 08:00 8.0 30 03/03/19 08:00 T-piece 8.0 03/03/19 08:00 98.4 56 20 134/90 (105) 100 03/03/19 07:23 54 20 100 T-Piece 8.0 30 03/03/19 07:23 100 T-Piece 8.0 30 03/03/19 07:22 49 20 100 T-Piece 8.0 30 55 21 99 03/03/19 07:00 72 17 159/51 (87) 99 03/03/19 06:00 72 17 159/51 (87) 99 03/03/19 05:00 61 21 160/49 (86) 100 03/03/19 04:00 63 03/03/19 04:00 8.0 30 03/03/19 04:00 T-piece 8.0 03/03/19 04:00 98.4 58 19 166/63 (97) 100 03/03/19 03:19 56 24 100 T-Piece 8.0 30 57 22 100 03/03/19 03:00 59 22 141/54 (83) 100 03/03/19 02:00 58 21 148/54 (85) 100 03/03/19 01:10 100 T-Piece 8.0 30 03/03/19 01:00 57 22 122/44 (70) 100 03/03/19 00:00 T-piece 8.0 03/03/19 00:00 8.0 30 03/03/19 00:00 76 03/03/19 00:00 98.6 58 23 148/58 (88) 100 03/02/19 23:59 56 24 100 T-Piece 8.0 30 60 23 100 03/02/19 23:00 81 20 134/66 (88) 100 03/02/19 22:37 63 24 100 T-Piece 8.0 30 68 20 100 03/02/19 22:00 67 22 129/56 (80) 100 03/02/19 21:39 55 151/54 03/02/19 21:00 69 19 151/54 (86) 99 03/02/19 20:00 62 03/02/19 20:00 8.0 30 03/02/19 20:00 98.5 60 19 132/50 (77) 100 03/02/19 20:00 T-piece 8.0 03/02/19 19:26 67 21 100 T-Piece 8.0 30 63 20 100 03/02/19 19:26 63 20 100 T-Piece 8.0 30 03/02/19 19:26 100 T-Piece 8.0 30 03/02/19 19:00 70 19 156/62 (93) 100 03/02/19 18:00 67 18 155/75 (101) 100 03/02/19 17:00 63 20 102/48 (66) 100 03/02/19 16:00 98.6 66 20 144/66 (92) 100 03/02/19 16:00 T-piece 8.0 03/02/19 16:00 63 03/02/19 16:00 8.0 30 03/02/19 15:02 72 23 100 T-Piece 8.0 30 71 19 100 03/02/19 15:00 70 18 141/59 (86) 100 03/02/19 14:00 66 20 146/64 (91) 100 03/02/19 13:14 100 T-Piece 8.0 30 03/02/19 13:00 63 21 122/58 (79) 98 03/02/19 12:00 8.0 30 03/02/19 12:00 98.6 64 22 113/49 (70) 98 12/2/19 12:00 T-piece 8.0 03/02/19 12:00 69 03/02/19 11:32 68 18 100 T-Piece 8.0 30 67 22 98 Height (Feet): 5 Height (Inches): 5.00 Weight (Pounds): 180 HEENT: status post trach Respiratory/Chest: lungs clear Cardiovascular: normal rate, regular rhythm, no gallop/murmur Abdomen: soft, non tender, other - GT Extremities: no edema, other - right artm PICC Laboratory Tests Test 03/03/19 06:30 White Blood Count 7.8 K/UL (4.8-10.8) Red Blood Count 3.61 M/UL (4.20-5.40) L Hemoglobin 9.8 G/DL (12.0-16.0) L Hematocrit 31.0 % (37.0-47.0) L Mean Corpuscular Volume 86 FL (80-99) Mean Corpuscular Hemoglobin 27.0 PG (27.0-31.0) Mean Corpuscular Hemoglobin Concent 31.5 G/DL (32.0-36.0) L Red Cell Distribution Width 17.3 % (11.6-14.8) H Platelet Count 213 K/UL (150-450) Mean Platelet Volume 5.8 FL (6.5-10.1) L Neutrophils (%) (Auto) 51.4 % (45.0-75.0) Lymphocytes (%) (Auto) 34.9 % (20.0-45.0) Monocytes (%) (Auto) 6.0 % (1.0-10.0) Eosinophils (%) (Auto) 6.5 % (0.0-3.0) H Basophils (%) (Auto) 1.1 % (0.0-2.0) Sodium Level 145 MMOL/L (136-145) Potassium Level 4.0 MMOL/L (3.5-5.1) Chloride Level 107 MMOL/L (98-107) Carbon Dioxide Level 32 MMOL/L (21-32) Anion Gap 6 mmol/L (5-15) Blood Urea Nitrogen 28 mg/dL (7-18) H Creatinine 0.9 MG/DL (0.55-1.30) Estimat Glomerular Filtration Rate mL/min (>60) Glucose Level 83 MG/DL (74-106) Calcium Level 8.9 MG/DL (8.5-10.1) Phosphorus Level 3.6 MG/DL (2.5-4.9) Magnesium Level 2.0 MG/DL (1.8-2.4) Total Bilirubin 0.3 MG/DL (0.2-1.0) Aspartate Amino Transf (AST/SGOT) 25 U/L (15-37) Alanine Aminotransferase (ALT/SGPT) 26 U/L (12-78) Alkaline Phosphatase 107 U/L (46-116) C-Reactive Protein, Quantitative 0.8 mg/dL (0.00-0.90) Pro-B-Type Natriuretic Peptide 189 pg/mL (0-125) H Total Protein 8.5 G/DL (6.4-8.2) H Albumin 2.8 G/DL (3.4-5.0) L Globulin 5.7 g/dL Albumin/Globulin Ratio 0.5 (1.0-2.7) L Current Medications Medications (Trade) Dose Ordered Sig/Maicol Route PRN Reason Start Time Stop Time Status Last Admin Dose Admin Acetaminophen (Tylenol) 650 mg Q4H PRN GT Mild Pain/Temp > 100.5 02/18/19 05:44 03/05/19 05:43 02/23/19 21:33 Acetylcysteine (Mucomyst) 200 mg Q4HRT [facility] 02/28/19 03:00 03/29/19 16:59 03/03/19 07:22 Albuterol/ Ipratropium (Albuterol/ Ipratropium) 3 ml Q4HRT [facility] 02/27/19 15:00 03/04/19 14:59 03/03/19 07:22 Amikacin Sulfate (Amikin) 500 mg Q12HR@10,22 INH 02/27/19 22:00 03/06/19 21:59 03/03/19 09:45 Atropine Sulfate (Atropine Opth Adriana) 1 drop TID SL 02/18/19 09:00 03/12/19 09:29 03/03/19 08:30 Bacitracin (Bacitracin 15gm tube) 1 applic THREE TIMES A DAY TOPIC 02/28/19 18:30 03/30/19 18:29 03/03/19 08:30 Chlorhexidine Gluconate (Cesilia-Hex 2%) 1 applic DAILY@2000 TOPIC 02/18/19 20:00 03/12/19 19:59 03/02/19 21:37 Famotidine (Pepcid) 20 mg BID GT 03/02/19 18:00 04/01/19 17:59 03/03/19 08:28 Heparin Sodium (Porcine) (Heparin 5000 units/ml) 5,000 units EVERY 12 HOURS SUBQ 02/18/19 09:00 03/16/19 23:14 03/03/19 08:30 Hydralazine HCl (Apresoline) 25 mg Q4H PRN GT SBP above 160 02/18/19 05:46 03/09/19 05:45 03/02/19 04:02 Levetiracetam (Keppra) 750 mg Q12HR GT 02/18/19 09:00 03/16/19 23:29 03/03/19 08:30 Meropenem 1 gm/ Sodium Chloride 55 ml @ 110 mls/hr Q12HR IVPB 02/27/19 11:00 03/04/19 10:59 03/03/19 08:29 Metoclopramide HCl (Reglan) 10 mg Q6H PRN IVP Nausea & Vomiting 02/18/19 05:46 03/09/19 05:45 Metoprolol Tartrate (Lopressor) 25 mg Q12HR GT 02/18/19 09:00 03/16/19 23:29 03/03/19 08:28 Geovany Yang MD Mar 03, 2019 11:16"
--- NOTE | 2019-03-03 12:28 | NUR ---
NURSE NOTES: Turned and repositioned for skin management and comfort.Suction as tolerated and mouth care done.HOB elevated to prevent aspiration.No significant change in condition at this time.Will continue to monitor
--- NOTE | 2019-03-03 13:45 | Nephrology Progress Note ---
Assessment/Plan Problem List: (1) Acute renal failure (ARF) Assessment: Cr stable (2) Chronic respiratory failure (3) Anemia (4) Sepsis Assessment Acute renal failure Respiratory failure - Trach Low Mag- Low k , Low Na Anemia UTI / Sepsis Proteinuria / HypoAlbuminemia high Trigs Sz decubs bed bound DNR Plan high K likely hemolysis K and Mag and Phos supplement as needed Hydrate Urine studies avoid Nephrotoxics mag K Phos supplements as needed monitor renal parameters Subjective ROS Limited/Unobtainable: Yes Objective Objective Last 24 Hour Vital Signs Date Time Temp Pulse Resp B/P (MAP) Pulse Ox O2 Delivery O2 Flow Rate FiO2 03/03/19 13:13 97 T-Piece 8.0 30 03/03/19 12:00 98.4 57 20 153/60 (91) 100 03/03/19 12:00 T-piece 8.0 03/03/19 12:00 8.0 30 03/03/19 11:00 55 21 136/65 (88) 100 03/03/19 10:00 59 20 125/58 (80) 100 03/03/19 09:45 66 20 100 T-Piece 8.0 30 60 19 100 03/03/19 09:00 61 15 149/53 (85) 98 03/03/19 08:28 60 134/90 03/03/19 08:00 8.0 30 03/03/19 08:00 62 03/03/19 08:00 T-piece 8.0 03/03/19 08:00 98.4 56 20 134/90 (105) 100 03/03/19 07:23 54 20 100 T-Piece 8.0 30 03/03/19 07:23 100 T-Piece 8.0 30 03/03/19 07:22 49 20 100 T-Piece 8.0 30 55 21 99 03/03/19 07:00 72 17 159/51 (87) 99 03/03/19 06:00 72 17 159/51 (87) 99 03/03/19 05:00 61 21 160/49 (86) 100 03/03/19 04:00 63 03/03/19 04:00 8.0 30 03/03/19 04:00 T-piece 8.0 03/03/19 04:00 98.4 58 19 166/63 (97) 100 03/03/19 03:19 56 24 100 T-Piece 8.0 30 57 22 100 03/03/19 03:00 59 22 141/54 (83) 100 03/03/19 02:00 58 21 148/54 (85) 100 03/03/19 01:10 100 T-Piece 8.0 30 03/03/19 01:00 57 22 122/44 (70) 100 03/03/19 00:00 T-piece 8.0 03/03/19 00:00 8.0 30 03/03/19 00:00 76 03/03/19 00:00 98.6 58 23 148/58 (88) 100 03/02/19 23:59 56 24 100 T-Piece 8.0 30 60 23 100 03/02/19 23:00 81 20 134/66 (88) 100 03/02/19 22:37 63 24 100 T-Piece 8.0 30 68 20 100 03/02/19 22:00 67 22 129/56 (80) 100 03/02/19 21:39 55 151/54 03/02/19 21:00 69 19 151/54 (86) 99 03/02/19 20:00 62 03/02/19 20:00 8.0 30 03/02/19 20:00 98.5 60 19 132/50 (77) 100 03/02/19 20:00 T-piece 8.0 03/02/19 19:26 67 21 100 T-Piece 8.0 30 63 20 100 03/02/19 19:26 63 20 100 T-Piece 8.0 30 03/02/19 19:26 100 T-Piece 8.0 30 03/02/19 19:00 70 19 156/62 (93) 100 03/02/19 18:00 67 18 155/75 (101) 100 03/02/19 17:00 63 20 102/48 (66) 100 03/02/19 16:00 98.6 66 20 144/66 (92) 100 03/02/19 16:00 T-piece 8.0 03/02/19 16:00 63 03/02/19 16:00 8.0 30 03/02/19 15:02 72 23 100 T-Piece 8.0 30 71 19 100 03/02/19 15:00 70 18 141/59 (86) 100 03/02/19 14:00 66 20 146/64 (91) 100 Intake and Output 03/02/19 03/03/19 18:59 06:59 Intake Total 715 ml 525 ml Output Total 350 ml 550 ml Balance 365 ml -25 ml Free Water 50 ml IV Total 55 ml 55 ml Tube Feeding 420 ml 420 ml Other 240 ml Output Urine Total 350 ml 550 ml Laboratory Tests 03/03/19 06:30: White Blood Count 7.8, Red Blood Count 3.61L, Hemoglobin 9.8L, Hematocrit 31.0L , Mean Corpuscular Volume 86, Mean Corpuscular Hemoglobin 27.0, Mean Corpuscular Hemoglobin Concent 31.5L, Red Cell Distribution Width 17.3H, Platelet Count 213, Mean Platelet Volume 5.8L, Neutrophils (%) (Auto) 51.4, Lymphocytes (%) (Auto) 34.9, Monocytes (%) (Auto) 6.0, Eosinophils (%) (Auto) 6.5H, Basophils (%) (Auto) 1.1, Sodium Level 145, Potassium Level 4.0, Chloride Level 107, Carbon Dioxide Level 32, Anion Gap 6, Blood Urea Nitrogen 28H, Creatinine 0.9, Estimat Glomerular Filtration Rate , Glucose Level 83, Calcium Level 8.9, Phosphorus Level 3.6, Magnesium Level 2.0, Total Bilirubin 0.3, Aspartate Amino Transf (AST/SGOT) 25, Alanine Aminotransferase (ALT/SGPT) 26, Alkaline Phosphatase 107, C-Reactive Protein, Quantitative 0.8, Pro-B-Type Natriuretic Peptide 189H, Total Protein 8.5H, Albumin 2.8L, Globulin 5.7, Albumin/Globulin Ratio 0.5L Height (Feet): 5 Height (Inches): 5.00 Weight (Pounds): 180 General Appearance: no apparent distress EENT: other - trach Cardiovascular: bradycardia Respiratory/Chest: decreased breath sounds Abdomen: distended Objective no change Eric Cortez MD Mar 03, 2019 13:45
--- NOTE | 2019-03-03 14:10 | NUR ---
NURSE NOTES: Patient turned and repositioned,mouth care done.HOB elevated to prevent aspiration.Remains hemodynamically stable with no significant change of condition.Will continue same care plan
--- NOTE | 2019-03-03 14:47 | Surgery Progress Note ---
Surgery Progress Note Subjective Additional Comments no acute events exam stable d/c pending Objective Last 24 Hour Vital Signs Date Time Temp Pulse Resp B/P (MAP) Pulse Ox O2 Delivery O2 Flow Rate FiO2 03/03/19 14:00 61 19 106/55 (72) 99 03/03/19 13:13 97 T-Piece 8.0 30 03/03/19 13:00 78 18 137/72 (93) 97 03/03/19 12:00 98.4 57 20 153/60 (91) 100 03/03/19 12:00 T-piece 8.0 03/03/19 12:00 77 03/03/19 12:00 8.0 30 03/03/19 11:00 55 21 136/65 (88) 100 03/03/19 10:00 59 20 125/58 (80) 100 03/03/19 09:45 66 20 100 T-Piece 8.0 30 60 19 100 03/03/19 09:00 61 15 149/53 (85) 98 03/03/19 08:28 60 134/90 03/03/19 08:00 8.0 30 03/03/19 08:00 62 03/03/19 08:00 T-piece 8.0 03/03/19 08:00 98.4 56 20 134/90 (105) 100 03/03/19 07:23 54 20 100 T-Piece 8.0 30 03/03/19 07:23 100 T-Piece 8.0 30 03/03/19 07:22 49 20 100 T-Piece 8.0 30 55 21 99 03/03/19 07:00 72 17 159/51 (87) 99 03/03/19 06:00 72 17 159/51 (87) 99 03/03/19 05:00 61 21 160/49 (86) 100 03/03/19 04:00 63 03/03/19 04:00 8.0 30 03/03/19 04:00 T-piece 8.0 03/03/19 04:00 98.4 58 19 166/63 (97) 100 03/03/19 03:19 56 24 100 T-Piece 8.0 30 57 22 100 03/03/19 03:00 59 22 141/54 (83) 100 03/03/19 02:00 58 21 148/54 (85) 100 03/03/19 01:10 100 T-Piece 8.0 30 03/03/19 01:00 57 22 122/44 (70) 100 03/03/19 00:00 T-piece 8.0 03/03/19 00:00 8.0 30 03/03/19 00:00 76 03/03/19 00:00 98.6 58 23 148/58 (88) 100 03/02/19 23:59 56 24 100 T-Piece 8.0 30 60 23 100 03/02/19 23:00 81 20 134/66 (88) 100 03/02/19 22:37 63 24 100 T-Piece 8.0 30 68 20 100 03/02/19 22:00 67 22 129/56 (80) 100 03/02/19 21:39 55 151/54 03/02/19 21:00 69 19 151/54 (86) 99 03/02/19 20:00 62 03/02/19 20:00 8.0 30 03/02/19 20:00 98.5 60 19 132/50 (77) 100 03/02/19 20:00 T-piece 8.0 03/02/19 19:26 67 21 100 T-Piece 8.0 30 63 20 100 03/02/19 19:26 63 20 100 T-Piece 8.0 30 03/02/19 19:26 100 T-Piece 8.0 30 03/02/19 19:00 70 19 156/62 (93) 100 03/02/19 18:00 67 18 155/75 (101) 100 03/02/19 17:00 63 20 102/48 (66) 100 03/02/19 16:00 98.6 66 20 144/66 (92) 100 03/02/19 16:00 T-piece 8.0 03/02/19 16:00 63 03/02/19 16:00 8.0 30 03/02/19 15:02 72 23 100 T-Piece 8.0 30 71 19 100 03/02/19 15:00 70 18 141/59 (86) 100 I&O Intake and Output 03/02/19 03/03/19 18:59 06:59 Intake Total 715 ml 525 ml Output Total 350 ml 550 ml Balance 365 ml -25 ml Free Water 50 ml IV Total 55 ml 55 ml Tube Feeding 420 ml 420 ml Other 240 ml Output Urine Total 350 ml 550 ml Dressing: saturated, other Wound: other Drains: other Cardiovascular: RSR Respiratory: clear Abdomen: soft, present bowel sounds Extremities: no cyanosis, other Laboratory Tests Test 03/03/19 06:30 White Blood Count 7.8 K/UL (4.8-10.8) Red Blood Count 3.61 M/UL (4.20-5.40) L Hemoglobin 9.8 G/DL (12.0-16.0) L Hematocrit 31.0 % (37.0-47.0) L Mean Corpuscular Volume 86 FL (80-99) Mean Corpuscular Hemoglobin 27.0 PG (27.0-31.0) Mean Corpuscular Hemoglobin Concent 31.5 G/DL (32.0-36.0) L Red Cell Distribution Width 17.3 % (11.6-14.8) H Platelet Count 213 K/UL (150-450) Mean Platelet Volume 5.8 FL (6.5-10.1) L Neutrophils (%) (Auto) 51.4 % (45.0-75.0) Lymphocytes (%) (Auto) 34.9 % (20.0-45.0) Monocytes (%) (Auto) 6.0 % (1.0-10.0) Eosinophils (%) (Auto) 6.5 % (0.0-3.0) H Basophils (%) (Auto) 1.1 % (0.0-2.0) Sodium Level 145 MMOL/L (136-145) Potassium Level 4.0 MMOL/L (3.5-5.1) Chloride Level 107 MMOL/L (98-107) Carbon Dioxide Level 32 MMOL/L (21-32) Anion Gap 6 mmol/L (5-15) Blood Urea Nitrogen 28 mg/dL (7-18) H Creatinine 0.9 MG/DL (0.55-1.30) Estimat Glomerular Filtration Rate mL/min (>60) Glucose Level 83 MG/DL (74-106) Calcium Level 8.9 MG/DL (8.5-10.1) Phosphorus Level 3.6 MG/DL (2.5-4.9) Magnesium Level 2.0 MG/DL (1.8-2.4) Total Bilirubin 0.3 MG/DL (0.2-1.0) Aspartate Amino Transf (AST/SGOT) 25 U/L (15-37) Alanine Aminotransferase (ALT/SGPT) 26 U/L (12-78) Alkaline Phosphatase 107 U/L (46-116) C-Reactive Protein, Quantitative 0.8 mg/dL (0.00-0.90) Pro-B-Type Natriuretic Peptide 189 pg/mL (0-125) H Total Protein 8.5 G/DL (6.4-8.2) H Albumin 2.8 G/DL (3.4-5.0) L Globulin 5.7 g/dL Albumin/Globulin Ratio 0.5 (1.0-2.7) L Plan Problems: (1) Sacral decubitus ulcer Assessment & Plan: This is a 83-year-old female with multiple medical committees that is currently admitted for medical care and management and identified to have multiple wounds requiring care. On admission patient noted to have a resolved sacral decubitus ulcer. Has had prior care and is well-healed at this time. Will ensure it does not open up again. Patient has a right ischial decubitus ulcer that is resolved. Scar intact and well formed. Will monitor to ensure it does not open up again. Patient has a left ischial decubitus ulcer that can be identified to be stage IV with palpable bone that has been resolving as noted by the periwound tissue and scar but open area approximately 1 cm x 1.5 cm few millimeters deep to bone identified. Unsure if this is been to be completely healed prior and has since opened or if has been healing at this level. No foul odor no drainage was unsure local wound care until healed Bilateral heels soft without signs of injury Resolving pressure injury L ischium(L)1.8cm x (W)1cm.Scattered biofilm at base of wound. Edges flat and adherent with surrounding hyperpigmentation. No odor or exudate noted. Sacrum is pale pink with surrounding hyperpigmentation. Hyperpigmentation R ischium with small sheared area centrally.No areas of erythema or exudate noted. Both heels are soft but blanchable. Skin Assessed under collar of trach and no evidence of skin breakdown noted. All wound Tx. are effective and continued as ordered. Pt ahs an APM/Belén mattress overlay and is being repositioned per protocols and per tolerance.No new skin concerns noted. Full thickness pressure injury L Ischium with small amt biofilm (L)1.8cm x (W) 1cm. Surrounding pink hyperpigmentation. No odor or exudate noted. [place] hyperpigmentation from previous wound noted to sacrum. Pt also noted to have Cat 2 Skin Tear dorsal L hand, L 5th metatarsal extending into palm of hand. 80% skin flap in situ.Both heels are dry firm and blanchable. No other skin concerns noted. Cleanse Blister Dorsal and palm of L hand with saline. Versatel One Silicone Contact Layer(Applied). Apply Silvasorb Gel. Wrap with Kerlix Gauze.Change every 7 days and prn. Apply Moisture Barrier to sacrum. Cover with Optifoam drsg. Change every 3 days and prn. Cleanse L ischial wound with saline. Apply Therahoney. Apply Moisture Barrier Paste periwound. Cover with Optifoam drsg. Change every 3 days and prn. Apply Cavilon Skin Barrier to both heels. Cover each heel with Optifoam drsg. Change every 7 days and prn. APM/BELÉN Mattress overlay. Reposition at least every 2hours or as tolerated. Off-load heels with pillow. Nutritional optimization We will monitor follow with recommendations cont with above upon d/c (2) Sepsis Assessment & Plan: IV abx as per ID trend labs improving wounds unlikely etiology likely respiratory imaging noted and okay abnormal lft's stable PICC on Abx in ICU for desaturation CXR with consolidation Evidence of left lower lobe pneumonia, also previously demonstrated Gastrostomy in good position Mild diastasis of the rectus abdominis musculature again demonstrated Retrosacral decubitus changes, better depicted on prior exam which included the pelvis Small hiatal hernia with evidence of trace gastroesophageal reflux (3) Feeding by G-tube Assessment & Plan: DAILY ESTIMATED NEEDS: Needs based on Pulmonary, wounds, bedbound/ 60kg adj 25-28 kcals/kg 0805-5881 total kcals 1.25-2 g protein/kg 75-120 g total protein 25-30 mL/kg 2915-5326 total fluid mLs NUTRITION DIAGNOSIS: * Swallowing difficulty R/T respiratory status as evidenced by pt on T-collar, now back the vent, PEG dep, TF changed to low rate at this time due to episodes of vomiting + residuals. * Increased kcal/prot needs R/T wound healing as evidenced by BL buttocks and sacral wound photos, refer to WC surial. (CURRENT TF:Glucerna 1.5 @35ml) ENTERAL NUTRITION RECOMMENDATIONS: VITAL AF 1.2 @ 55ml/hr x 24 hrs to provide 1320ml, 1584kcal, 99g prot, 1060ml free water - Once medically appropriate to resume TF, rec to initiate elemental and carb control formula of Vital 1.2 for possible improved tolerance - Initiate VITAL 1.2 @ 25ml/hr x 6hrs, advance 10ml q 4-6 hrs as tolerated to goal rate - Flush per MD/ HOB over 30 degrees ADDITIONAL RECOMMENDATIONS: 1) Re-calibrated bedscale wt for accurate CBW 2) Wound healing: Add Cristian 1pkt BID w/ improved Tf tolerace + MVI x1 daily 3) Monitor lytes, replete as needed (low Mg, K) 4) Monitor NPO status, ability to resume TF. -> held on and off due to vomiting since 02/02 5) SSI prn resume tube feeds (4) Chronic vegetative state Assessment & Plan: incontinence of urine and stool. can soil dressings. nurses doing great job with monitoring and changing prn (5) Leukocytosis Walter Madera Mar 03, 2019 14:47
--- NOTE | 2019-03-03 16:36 | NUR ---
NURSE NOTES: Patient remains hemodynamically stable, turned and repositioned, suction as tolerated and mouth care done. HOB elevated to prevent aspiration.Will continue same care plan
--- NOTE | 2019-03-03 17:00 | NUR ---
NURSE NOTES: Report received from JEANNINE Bautista. Patient is awake, opens eyes spontaneously, unable to follow commands. SR noted on freight router. Trach, Shiley 6, T-piece FIO2 35%, 8L. O2 sat 100%. No acute distress noted. G-tube intact, running Glucerna 1.5 at 35ml/hr. HOB kept elevated. Right upper arm PICC line intact, dressing intact, clean and dry. Patient on female external catheter, yellow urine noted. wound dressings intact, clean and dry. Patient on P200 mattress. Bed in lowest position, locked, side rails upx3. Bed alarm on. Call light within reach. pt's daughter and family members at bedside. Will continue to monitor.
--- NOTE | 2019-03-03 17:05 | NUR ---
HAND-OFF: Report given to Yodit Beaulieu RN.
--- NOTE | 2019-03-03 18:00 | NUR ---
NURSE NOTES: Patient was turned and repositioned. Oral care provided. Patient voided x1. Patient kept clean and dry.
--- NOTE | 2019-03-03 19:04 | NUR ---
HAND-OFF: Report given to JEANNINE Armstrong.
--- NOTE | 2019-03-03 19:44 | NUR ---
NURSE NOTES: received report fr jauregui rn pt open eyes to touch but does not follows command upper extremities contracted all extremities no movement tube feeding with glusirna at 30 cc/hr per gt no residual reposition and suction
[2019-03-03] MEDS: Dyna-Hex 2% Top Sol 2oz TOPIC SCH (20:25)
--- NOTE | 2019-03-03 22:00 | NUR ---
NURSE NOTES: family at bed side reposition and suction
--- NOTE | 2019-03-03 23:15 | Progress Note ---
DATE: 03/03/2019 CARDIOLOGY PROGRESS NOTE SUBJECTIVE: The patient remains in the intensive care unit. Ventilator support at times, otherwise trach collar, remains at baseline, comatose state, thin secretions. PHYSICAL EXAMINATION: VITAL SIGNS: Blood pressure 125/52, heart rate 61, respiratory rate 19. LUNGS: Bilateral breath sounds. HEART: Regular rhythm rate. Normal S1 and S2. Monitored rhythm sinus. ABDOMEN: Soft with G-tube. EXTREMITIES: Trace dependent edema. LABORATORY DATA: Notable for potassium 4, BUN 28, creatinine 0.9. Pro-natriuretic peptide of 189 and magnesium of 2 with albumin 2.8. White count 7.8, hemoglobin 9.8. IMPRESSION: 1. No signs of acute congestive heart failure. 2. Respiratory failure. 3. Recovered shock due to sepsis. 4. Advanced dementia. 5. Controlled hypertension. 6. Mild dehydration and prerenal azotemia. PLAN: 1. Maintain current cardiovascular regimen. 2. May need additional volume support by G-tube. 3. As such we will add free water. Bg Hagen M.D. DR: Stephanie JOB#: [id number] CC:
--- NOTE | 2019-03-03 23:16 | General Progress Note ---
Assessment/Plan Status: stable, progressing Assessment/Plan: Assessment - N/V, periodic - suspect due to gastroparesis - will hold off on G to J conversion per daughter request - Elevated Alk phos / LFT - CT negative - abd U/S negative - check hepatitis serologies - negative - Anemia with OB (-) stools - Resp failure, s/p Trach - dysphagia, s/p PEG - OBS - minor GT tract inflammation / infection - poor Px Recommendations - laxative PRN - antibiotic ointment to GT site - continue TF - aspiration precautions - elevate HOB - PPI Subjective Allergies: Coded Allergies: CODEINE (Verified Allergy, Unknown, HIVES, 09/15/09) Subjective Out of ICU tolerating TF d/w RN Objective Last 24 Hour Vital Signs Date Time Temp Pulse Resp B/P (MAP) Pulse Ox O2 Delivery O2 Flow Rate FiO2 03/03/19 22:00 68 20 136/57 (83) 100 03/03/19 21:16 69 18 100 T-Piece 8.0 30 73 20 100 03/03/19 21:00 66 18 121/74 (90) 100 03/03/19 20:00 98.6 64 19 102/45 (64) 98 03/03/19 20:00 68 03/03/19 20:00 T-piece 8.0 03/03/19 20:00 8.0 30 03/03/19 19:00 61 19 125/52 (76) 100 03/03/19 18:58 100 T-Piece 8.0 30 03/03/19 18:58 72 20 100 T-Piece 8.0 30 03/03/19 18:58 68 18 100 T-Piece 8.0 30 72 20 100 03/03/19 18:00 80 20 144/58 (86) 100 03/03/19 17:00 64 17 140/81 (100) 100 03/03/19 16:00 55 18 112/57 (75) 99 03/03/19 16:00 8.0 30 03/03/19 16:00 T-piece 8.0 03/03/19 16:00 58 03/03/19 15:21 78 18 100 T-Piece 8.0 30 82 22 99 03/03/19 15:00 67 20 141/85 (103) 100 03/03/19 14:00 61 19 106/55 (72) 99 03/03/19 13:13 97 T-Piece 8.0 30 03/03/19 13:00 78 18 137/72 (93) 97 03/03/19 12:00 98.4 57 20 153/60 (91) 100 03/03/19 12:00 T-piece 8.0 03/03/19 12:00 77 03/03/19 12:00 8.0 30 03/03/19 11:00 55 21 136/65 (88) 100 03/03/19 10:00 59 20 125/58 (80) 100 03/03/19 09:45 66 20 100 T-Piece 8.0 30 60 19 100 03/03/19 09:00 61 15 149/53 (85) 98 03/03/19 08:28 60 134/90 03/03/19 08:00 8.0 30 03/03/19 08:00 62 03/03/19 08:00 T-piece 8.0 03/03/19 08:00 98.4 56 20 134/90 (105) 100 03/03/19 07:23 54 20 100 T-Piece 8.0 30 03/03/19 07:23 100 T-Piece 8.0 30 03/03/19 07:22 49 20 100 T-Piece 8.0 30 55 21 99 03/03/19 07:00 72 17 159/51 (87) 99 03/03/19 06:00 72 17 159/51 (87) 99 03/03/19 05:00 61 21 160/49 (86) 100 03/03/19 04:00 63 03/03/19 04:00 8.0 30 03/03/19 04:00 T-piece 8.0 03/03/19 04:00 98.4 58 19 166/63 (97) 100 03/03/19 03:19 56 24 100 T-Piece 8.0 30 57 22 100 03/03/19 03:00 59 22 141/54 (83) 100 03/03/19 02:00 58 21 148/54 (85) 100 03/03/19 01:10 100 T-Piece 8.0 30 03/03/19 01:00 57 22 122/44 (70) 100 03/03/19 00:00 T-piece 8.0 12/3/19 00:00 8.0 30 03/03/19 00:00 76 03/03/19 00:00 98.6 58 23 148/58 (88) 100 03/02/19 23:59 56 24 100 T-Piece 8.0 30 60 23 100 Intake and Output 03/02/19 03/03/19 19:00 07:00 Intake Total 715 ml 525 ml Output Total 350 ml 550 ml Balance 365 ml -25 ml Free Water 50 ml IV Total 55 ml 55 ml Tube Feeding 420 ml 420 ml Other 240 ml Output Urine Total 350 ml 550 ml Laboratory Tests 03/03/19 06:30: White Blood Count 7.8, Red Blood Count 3.61L, Hemoglobin 9.8L, Hematocrit 31.0L , Mean Corpuscular Volume 86, Mean Corpuscular Hemoglobin 27.0, Mean Corpuscular Hemoglobin Concent 31.5L, Red Cell Distribution Width 17.3H, Platelet Count 213, Mean Platelet Volume 5.8L, Neutrophils (%) (Auto) 51.4, Lymphocytes (%) (Auto) 34.9, Monocytes (%) (Auto) 6.0, Eosinophils (%) (Auto) 6.5H, Basophils (%) (Auto) 1.1, Sodium Level 145, Potassium Level 4.0, Chloride Level 107, Carbon Dioxide Level 32, Anion Gap 6, Blood Urea Nitrogen 28H, Creatinine 0.9, Estimat Glomerular Filtration Rate , Glucose Level 83, Calcium Level 8.9, Phosphorus Level 3.6, Magnesium Level 2.0, Total Bilirubin 0.3, Aspartate Amino Transf (AST/SGOT) 25, Alanine Aminotransferase (ALT/SGPT) 26, Alkaline Phosphatase 107, C-Reactive Protein, Quantitative 0.8, Pro-B-Type Natriuretic Peptide 189H, Total Protein 8.5H, Albumin 2.8L, Globulin 5.7, Albumin/Globulin Ratio 0.5L Height (Feet): 5 Height (Inches): 5.00 Weight (Pounds): 180 Objective Debilitated AA woman NCAT (+) trach coarse ronchi RR obese abd, (+) GT no edema Celio Vaughan MD Mar 03, 2019 23:16
[2019-03-04] VITALS (24 sets, daily range): BP systolic 98–164; BP diastolic 48–88
--- NOTE | 2019-03-04 | NUR ---
NURSE NOTES: tolerating tube feeding no residual
--- NOTE | 2019-03-04 02:00 | NUR ---
NURSE NOTES: no acute resp distress noted
[2019-03-04] MEDS: Albuterol/Ipratropium 3ml neb HHN SCH ×4 (03:44→14:43)
[2019-03-04] MEDS: Acetylcysteine 20% Soln 4ml HHN SCH ×6 (03:44→23:00)
--- NOTE | 2019-03-04 04:00 | NUR ---
NURSE NOTES: complete bed bath reposition and suction wound care done
[2019-03-04 05:46] LABS: BASOPHILS % (AUTO) 0.8 % (0.0-2.0); EOSINOPHILS % (AUTO) 6.2 % (0.0-3.0); HEMATOCRIT 30.6 % (37.0-47.0); HEMOGLOBIN 9.7 G/DL (12.0-16.0); MEAN CORPUSCULAR VOLUME 86 FL (80-99); MONOCYTES % (AUTO) 4.7 % (1.0-10.0); NEUTROPHILS % (AUTO) 51.3 % (45.0-75.0); PLATELET COUNT 226 K/UL (150-450); RED BLOOD COUNT 3.55 M/UL (4.20-5.40); RED CELL DISTRIBUTION WIDTH 16.7 % (11.6-14.8); WHITE BLOOD COUNT 7.5 K/UL (4.8-10.8)
--- NOTE | 2019-03-04 06:00 | NUR ---
NURSE NOTES: asleep reposition and suction pt on flory soft wrest restraint nan complaints Addendum: 03/04/19 at 0646 by CINDY ANGELES RN not this pt
--- NOTE | 2019-03-04 06:00 | NUR ---
NURSE NOTES: asleep reposition vs stable dr meredith in seen pt
--- NOTE | 2019-03-04 06:57 | General Progress Note ---
Assessment/Plan Problem List: (1) Seizure ICD Codes: R56.9 - Unspecified convulsions SNOMED: 34941768 (2) Anemia ICD Codes: D64.9 - Anemia, unspecified SNOMED: 710930252 Qualifiers: Qualified Codes: D64.9 - Anemia, unspecified (3) Sepsis ICD Codes: A41.9 - Sepsis, unspecified organism SNOMED: 59570653, 464700999 Qualifiers: Qualified Codes: A41.9 - Sepsis, unspecified organism (4) Respiratory failure with hypoxia ICD Codes: J96.91 - Respiratory failure, unspecified with hypoxia SNOMED: 42621333875957460 Qualifiers: Qualified Codes: J96.21 - Acute and chronic respiratory failure with hypoxia (5) HCAP (healthcare-associated pneumonia) ICD Codes: J18.9 - Pneumonia, unspecified organism SNOMED: 349677618, 166589968 (6) Sacral decubitus ulcer ICD Codes: L89.159 - Pressure ulcer of sacral region, unspecified stage SNOMED: 309955864 (7) HTN (hypertension) ICD Codes: I10 - Essential (primary) hypertension SNOMED: 53221840 (8) Chronic vegetative state ICD Codes: R40.3 - Persistent vegetative state SNOMED: 54720693 (9) Chronic respiratory failure ICD Codes: J96.10 - Chronic respiratory failure, unspecified whether with hypoxia or hypercapnia SNOMED: 12788870 (10) Limited mobility ICD Codes: Z74.09 - Other reduced mobility SNOMED: 9634941 Status: stable, progressing Assessment/Plan: vent prn as needed resp rx suctioning as needed gt feeds monitor for vomiting bowel regime monitor residuals sx rx monitor bp dc planning d/w dtr julio césar x 15 mins Subjective ROS Limited/Unobtainable: No Constitutional: Reports: malaise, weakness HEENT: Reports: no symptoms Cardiovascular: Reports: no symptoms Respiratory: Reports: cough, shortness of breath, sputum Gastrointestinal/Abdominal: Reports: difficulty swallowing Genitourinary: Reports: no symptoms Neurologic/Psychiatric: Reports: pre-existing deficit, seizure Endocrine: Reports: no symptoms Hematologic/Lymphatic: Reports: anemia Allergies: Coded Allergies: CODEINE (Verified Allergy, Unknown, HIVES, 09/15/09) All Systems: reviewed and negative except above Subjective bradycardic. b-martha dcd. still with some secretions and congestion. tolerating feeds. no szs. on t-bar Objective Last 24 Hour Vital Signs Date Time Temp Pulse Resp B/P (MAP) Pulse Ox O2 Delivery O2 Flow Rate FiO2 03/04/19 06:00 68 22 142/53 (82) 100 03/04/19 05:00 118 16 164/67 (99) 99 03/04/19 04:00 62 03/04/19 04:00 8.0 30 03/04/19 04:00 T-piece 8.0 03/04/19 04:00 98.8 62 19 156/59 (91) 100 03/04/19 03:44 67 17 100 T-Piece 8.0 30 66 20 100 03/04/19 03:00 68 22 152/61 (91) 100 03/04/19 02:00 73 21 132/61 (84) 100 03/04/19 01:49 100 T-Piece 8.0 30 03/04/19 01:00 65 21 135/52 (79) 100 03/04/19 00:00 87 03/04/19 00:00 T-piece 8.0 03/04/19 00:00 8.0 30 03/04/19 00:00 98.4 63 19 137/58 (84) 100 03/03/19 23:34 71 19 100 T-Piece 8.0 30 67 17 100 03/03/19 23:00 66 20 96/54 (68) 98 03/03/19 22:00 68 20 136/57 (83) 100 03/03/19 21:16 69 18 100 T-Piece 8.0 30 73 20 100 03/03/19 21:00 66 18 121/74 (90) 100 03/03/19 20:00 98.6 64 19 102/45 (64) 98 03/03/19 20:00 68 03/03/19 20:00 T-piece 8.0 03/03/19 20:00 8.0 30 03/03/19 19:00 61 19 125/52 (76) 100 03/03/19 18:58 100 T-Piece 8.0 30 03/03/19 18:58 72 20 100 T-Piece 8.0 30 03/03/19 18:58 68 18 100 T-Piece 8.0 30 72 20 100 03/03/19 18:00 80 20 144/58 (86) 100 03/03/19 17:00 64 17 140/81 (100) 100 03/03/19 16:00 55 18 112/57 (75) 99 03/03/19 16:00 8.0 30 03/03/19 16:00 T-piece 8.0 03/03/19 16:00 58 03/03/19 15:21 78 18 100 T-Piece 8.0 30 82 22 99 03/03/19 15:00 67 20 141/85 (103) 100 03/03/19 14:00 61 19 106/55 (72) 99 03/03/19 13:13 97 T-Piece 8.0 30 03/03/19 13:00 78 18 137/72 (93) 97 03/03/19 12:00 98.4 57 20 153/60 (91) 100 03/03/19 12:00 T-piece 8.0 03/03/19 12:00 77 03/03/19 12:00 8.0 30 03/03/19 11:00 55 21 136/65 (88) 100 03/03/19 10:00 59 20 125/58 (80) 100 03/03/19 09:45 66 20 100 T-Piece 8.0 30 60 19 100 03/03/19 09:00 61 15 149/53 (85) 98 03/03/19 08:28 60 134/90 03/03/19 08:00 8.0 30 03/03/19 08:00 62 03/03/19 08:00 T-piece 8.0 03/03/19 08:00 98.4 56 20 134/90 (105) 100 03/03/19 07:23 54 20 100 T-Piece 8.0 30 03/03/19 07:23 100 T-Piece 8.0 30 03/03/19 07:22 49 20 100 T-Piece 8.0 30 55 21 99 03/03/19 07:00 72 17 159/51 (87) 99 Intake and Output 03/03/19 03/04/19 19:00 07:00 Intake Total 655 ml 470 ml Output Total 300 ml 350 ml Balance 355 ml 120 ml Free Water 180 ml 100 ml IV Total 55 ml 55 ml Tube Feeding 420 ml 315 ml Output Urine Total 300 ml 350 ml # Voids 1 # Bowel Movements 1 Laboratory Tests 03/04/19 04:00: White Blood Count 7.5, Red Blood Count 3.55L, Hemoglobin 9.7L, Hematocrit 30.6L , Mean Corpuscular Volume 86, Mean Corpuscular Hemoglobin 27.4, Mean Corpuscular Hemoglobin Concent 31.8L, Red Cell Distribution Width 16.7H, Platelet Count 226, Mean Platelet Volume 7.2, Neutrophils (%) (Auto) 51.3, Lymphocytes (%) (Auto) 37.0, Monocytes (%) (Auto) 4.7, Eosinophils (%) (Auto) 6.2H, Basophils (%) (Auto) 0.8 Height (Feet): 5 Height (Inches): 5.00 Weight (Pounds): 180 Objective General Appearance: WD/WN, confused. on trach collar Neck: supple Cardiovascular: normal rate, regular rhythm Respiratory/Chest: chest wall non-tender, rhonchi - bilaterally(minimal) Abdomen: normal bowel sounds, non tender, soft, no organomegaly Edema: no edema noted Arm (L), no edema noted Arm (R), no edema noted Leg (L), no edema noted Leg (R), no edema noted Pedal (L), no edema noted Pedal (R), no edema noted Generalized Neurologic: disoriented, unresponsive, aphasia Irvin Beltrán MD Mar 04, 2019 06:56
--- NOTE | 2019-03-04 07:27 | NUR ---
HAND-OFF: Report given to annmarie mann using s bar.
--- NOTE | 2019-03-04 07:30 | NUR ---
NURSE NOTES: Report received from JEANNINE Armstrong
--- NOTE | 2019-03-04 08:02 | NUR ---
NURSE NOTES: Patient asleep with no s/s acute distress.Responsive to deep pain. On trac/vent Shiley 6, T-Piece at 35%.Patient on GT feeding glucerna 1.5 at 35cc/hr , placement checked and intact, no residual at this time and tolerate well feeding, no diarrhea noted.Elevated HOB at 35 degree to prevent aspiration.DEBBIE PICC TLC,dressing clean dry and intact.Noted with large amount thick yellowish secretion, suctioned as tolerated and mouth care done.TFoley catheter in place and no urine output noted, Dr Cortez made aware.Turn and reposition for skin management.Call light within easy reach. Will continue same care plan
[2019-03-04] MEDS: Bacitracin Oint 15gm Tube TOPIC SCH ×3 (08:15→18:09)
[2019-03-04] MEDS: Meropenem 1 GM in NS 55 ML IVPB SCH ×2 (08:16→20:24)
[2019-03-04] MEDS: levETIRAcetam 500mg/5ml Liquid GT SCH ×2 (08:17→20:24)
[2019-03-04] MEDS: Heparin 5000 units/ml inj SUBQ SCH ×2 (08:19→20:27)
--- NOTE | 2019-03-04 09:05 | Nephrology Progress Note ---
Assessment/Plan Problem List: (1) Acute renal failure (ARF) Assessment: Cr stable (2) Chronic respiratory failure (3) Anemia (4) Sepsis Assessment Acute renal failure Respiratory failure - Trach Low Mag- Low k , Low Na Anemia UTI / Sepsis Proteinuria / HypoAlbuminemia high Trigs Sz decubs bed bound DNR Plan bolus Albumin high K likely hemolysis K and Mag and Phos supplement as needed Hydrate Urine studies avoid Nephrotoxics mag K Phos supplements as needed monitor renal parameters Subjective ROS Limited/Unobtainable: Yes Objective Objective Last 24 Hour Vital Signs Date Time Temp Pulse Resp B/P (MAP) Pulse Ox O2 Delivery O2 Flow Rate FiO2 03/04/19 07:31 62 20 100 T-Piece 6.0 28 03/04/19 07:28 60 20 100 T-Piece 6.0 28 62 20 100 03/04/19 07:27 100 T-Piece 6.0 28 03/04/19 07:00 66 20 98/48 (65) 96 03/04/19 06:00 68 22 142/53 (82) 100 03/04/19 05:00 118 16 164/67 (99) 99 03/04/19 04:00 62 03/04/19 04:00 8.0 30 03/04/19 04:00 T-piece 8.0 03/04/19 04:00 98.8 62 19 156/59 (91) 100 03/04/19 03:44 67 17 100 T-Piece 8.0 30 66 20 100 03/04/19 03:00 68 22 152/61 (91) 100 03/04/19 02:00 73 21 132/61 (84) 100 03/04/19 01:49 100 T-Piece 8.0 30 03/04/19 01:00 65 21 135/52 (79) 100 03/04/19 00:00 87 03/04/19 00:00 T-piece 8.0 03/04/19 00:00 8.0 30 03/04/19 00:00 98.4 63 19 137/58 (84) 100 03/03/19 23:34 71 19 100 T-Piece 8.0 30 67 17 100 03/03/19 23:00 66 20 96/54 (68) 98 03/03/19 22:00 68 20 136/57 (83) 100 03/03/19 21:16 69 18 100 T-Piece 8.0 30 73 20 100 03/03/19 21:00 66 18 121/74 (90) 100 03/03/19 20:00 98.6 64 19 102/45 (64) 98 03/03/19 20:00 68 03/03/19 20:00 T-piece 8.0 03/03/19 20:00 8.0 30 03/03/19 19:00 61 19 125/52 (76) 100 03/03/19 18:58 100 T-Piece 8.0 30 03/03/19 18:58 72 20 100 T-Piece 8.0 30 03/03/19 18:58 68 18 100 T-Piece 8.0 30 72 20 100 03/03/19 18:00 80 20 144/58 (86) 100 03/03/19 17:00 64 17 140/81 (100) 100 03/03/19 16:00 55 18 112/57 (75) 99 03/03/19 16:00 8.0 30 03/03/19 16:00 T-piece 8.0 03/03/19 16:00 58 03/03/19 15:21 78 18 100 T-Piece 8.0 30 82 22 99 03/03/19 15:00 67 20 141/85 (103) 100 03/03/19 14:00 61 19 106/55 (72) 99 03/03/19 13:13 97 T-Piece 8.0 30 03/03/19 13:00 78 18 137/72 (93) 97 03/03/19 12:00 98.4 57 20 153/60 (91) 100 03/03/19 12:00 T-piece 8.0 03/03/19 12:00 77 03/03/19 12:00 8.0 30 03/03/19 11:00 55 21 136/65 (88) 100 03/03/19 10:00 59 20 125/58 (80) 100 03/03/19 09:45 66 20 100 T-Piece 8.0 30 60 19 100 Intake and Output 03/03/19 03/04/19 19:00 07:00 Intake Total 655 ml 505 ml Output Total 300 ml 350 ml Balance 355 ml 155 ml Free Water 180 ml 100 ml IV Total 55 ml 55 ml Tube Feeding 420 ml 350 ml Output Urine Total 300 ml 350 ml # Voids 1 # Bowel Movements 1 Laboratory Tests 03/04/19 04:00: White Blood Count 7.5, Red Blood Count 3.55L, Hemoglobin 9.7L, Hematocrit 30.6L , Mean Corpuscular Volume 86, Mean Corpuscular Hemoglobin 27.4, Mean Corpuscular Hemoglobin Concent 31.8L, Red Cell Distribution Width 16.7H, Platelet Count 226, Mean Platelet Volume 7.2, Neutrophils (%) (Auto) 51.3, Lymphocytes (%) (Auto) 37.0, Monocytes (%) (Auto) 4.7, Eosinophils (%) (Auto) 6.2H, Basophils (%) (Auto) 0.8 Height (Feet): 5 Height (Inches): 5.00 Weight (Pounds): 180 General Appearance: no apparent distress EENT: other - trach Cardiovascular: normal rate Respiratory/Chest: decreased breath sounds Abdomen: soft Objective no change Eric Cortez MD Mar 04, 2019 09:05
[2019-03-04] MEDS: Amikacin for Inhalation 2ML INH SCH ×2 (09:11→23:47)
--- NOTE | 2019-03-04 10:27 | NUR ---
NURSE NOTES: No significant change of a condition noted at this time.Turned and repositioned for skin management. Will continue to monitor.
--- NOTE | 2019-03-04 11:03 | Infectious Diseases Prog Note ---
"Assessment/Plan Assessment/Plan antibiotics : meropenem, inhaled amikacin A 1. UTI with proteus s/p rx 2. respiratory failure 3. hypertension 4. CVA 5. dementia 6. sacral decubitus ulcer 7. rectal VRE colonization 8. acenitobacter | enterobacter | klebsiella | pseudomonas pneumonia 9. renal failure resolved P 1. continue meropenem, inhaled amikacin 1 more day 2. will follow up cultures Subjective ROS Limited/Unobtainable: Yes Allergies: Coded Allergies: CODEINE (Verified Allergy, Unknown, HIVES, 09/15/09) Objective Vital Signs Last 24 Hour Vital Signs Date Time Temp Pulse Resp B/P (MAP) Pulse Ox O2 Delivery O2 Flow Rate FiO2 03/04/19 10:49 60 20 100 T-Piece 6.0 28 88 20 100 03/04/19 10:00 82 20 136/64 (88) 100 03/04/19 09:11 69 18 100 T-Piece 6.0 28 85 20 100 03/04/19 09:00 85 19 141/58 (85) 100 03/04/19 08:00 61 03/04/19 08:00 8.0 30 03/04/19 08:00 98.6 59 18 153/54 (87) 100 03/04/19 08:00 T-piece 8.0 03/04/19 07:31 62 20 100 T-Piece 6.0 28 03/04/19 07:28 60 20 100 T-Piece 6.0 28 62 20 100 03/04/19 07:27 100 T-Piece 6.0 28 03/04/19 07:00 66 20 98/48 (65) 96 03/04/19 06:00 68 22 142/53 (82) 100 03/04/19 05:00 118 16 164/67 (99) 99 03/04/19 04:00 62 03/04/19 04:00 8.0 30 03/04/19 04:00 T-piece 8.0 03/04/19 04:00 98.8 62 19 156/59 (91) 100 03/04/19 03:44 67 17 100 T-Piece 8.0 30 66 20 100 03/04/19 03:00 68 22 152/61 (91) 100 03/04/19 02:00 73 21 132/61 (84) 100 03/04/19 01:49 100 T-Piece 8.0 30 03/04/19 01:00 65 21 135/52 (79) 100 03/04/19 00:00 87 03/04/19 00:00 T-piece 8.0 03/04/19 00:00 8.0 30 03/04/19 00:00 98.4 63 19 137/58 (84) 100 03/03/19 23:34 71 19 100 T-Piece 8.0 30 67 17 100 03/03/19 23:00 66 20 96/54 (68) 98 03/03/19 22:00 68 20 136/57 (83) 100 03/03/19 21:16 69 18 100 T-Piece 8.0 30 73 20 100 03/03/19 21:00 66 18 121/74 (90) 100 03/03/19 20:00 98.6 64 19 102/45 (64) 98 03/03/19 20:00 68 03/03/19 20:00 T-piece 8.0 03/03/19 20:00 8.0 30 03/03/19 19:00 61 19 125/52 (76) 100 03/03/19 18:58 100 T-Piece 8.0 30 03/03/19 18:58 72 20 100 T-Piece 8.0 30 03/03/19 18:58 68 18 100 T-Piece 8.0 30 72 20 100 03/03/19 18:00 80 20 144/58 (86) 100 03/03/19 17:00 64 17 140/81 (100) 100 03/03/19 16:00 55 18 112/57 (75) 99 03/03/19 16:00 8.0 30 03/03/19 16:00 T-piece 8.0 03/03/19 16:00 58 03/03/19 15:21 78 18 100 T-Piece 8.0 30 82 22 99 03/03/19 15:00 67 20 141/85 (103) 100 03/03/19 14:00 61 19 106/55 (72) 99 03/03/19 13:13 97 T-Piece 8.0 30 03/03/19 13:00 78 18 137/72 (93) 97 03/03/19 12:00 98.4 57 20 153/60 (91) 100 03/03/19 12:00 T-piece 8.0 03/03/19 12:00 77 03/03/19 12:00 8.0 30 Height (Feet): 5 Height (Inches): 5.00 Weight (Pounds): 180 HEENT: status post trach Respiratory/Chest: lungs clear Cardiovascular: normal rate, regular rhythm, no gallop/murmur Abdomen: soft, non tender, other - GT Extremities: no edema, other - right arm PICC Laboratory Tests Test 03/04/19 04:00 White Blood Count 7.5 K/UL (4.8-10.8) Red Blood Count 3.55 M/UL (4.20-5.40) L Hemoglobin 9.7 G/DL (12.0-16.0) L Hematocrit 30.6 % (37.0-47.0) L Mean Corpuscular Volume 86 FL (80-99) Mean Corpuscular Hemoglobin 27.4 PG (27.0-31.0) Mean Corpuscular Hemoglobin Concent 31.8 G/DL (32.0-36.0) L Red Cell Distribution Width 16.7 % (11.6-14.8) H Platelet Count 226 K/UL (150-450) Mean Platelet Volume 7.2 FL (6.5-10.1) Neutrophils (%) (Auto) 51.3 % (45.0-75.0) Lymphocytes (%) (Auto) 37.0 % (20.0-45.0) Monocytes (%) (Auto) 4.7 % (1.0-10.0) Eosinophils (%) (Auto) 6.2 % (0.0-3.0) H Basophils (%) (Auto) 0.8 % (0.0-2.0) Current Medications Medications (Trade) Dose Ordered Sig/Maicol Route PRN Reason Start Time Stop Time Status Last Admin Dose Admin Acetaminophen (Tylenol) 650 mg Q4H PRN GT Mild Pain/Temp > 100.5 02/18/19 05:44 03/05/19 05:43 02/23/19 21:33 Acetylcysteine (Mucomyst) 200 mg Q4HRT HHN 02/28/19 03:00 03/29/19 16:59 03/04/19 10:48 Albuterol/ Ipratropium (Albuterol/ Ipratropium) 3 ml Q4HRT HHN 02/27/19 15:00 03/04/19 14:59 03/04/19 10:48 Amikacin Sulfate (Amikin) 500 mg Q12HR@10,22 INH 02/27/19 22:00 03/06/19 21:59 03/04/19 09:11 Atropine Sulfate (Atropine Opth Adriana) 1 drop TID SL 02/18/19 09:00 03/12/19 09:29 03/04/19 08:15 Bacitracin (Bacitracin 15gm tube) 1 applic THREE TIMES A DAY TOPIC 02/28/19 18:30 03/30/19 18:29 03/04/19 08:15 Chlorhexidine Gluconate (Cesilia-Hex 2%) 1 applic DAILY@1999 TOPIC 02/18/19 20:00 03/12/19 19:59 03/03/19 20:25 Famotidine (Pepcid) 20 mg BID GT 03/02/19 18:00 04/01/19 17:59 03/04/19 08:17 Heparin Sodium (Porcine) (Heparin 5000 units/ml) 5,000 units EVERY 12 HOURS SUBQ 02/18/19 09:00 03/16/19 23:14 03/04/19 08:19 Hydralazine HCl (Apresoline) 25 mg Q4H PRN GT SBP above 160 02/18/19 05:46 03/09/19 05:45 03/02/19 04:02 Levetiracetam (Keppra) 750 mg Q12HR GT 02/18/19 09:00 03/16/19 23:29 03/04/19 08:17 Meropenem 1 gm/ Sodium Chloride 55 ml @ 110 mls/hr Q12HR IVPB 03/03/19 21:00 03/08/19 20:59 03/04/19 08:16 Metoclopramide HCl (Reglan) 10 mg Q6H PRN IVP Nausea & Vomiting 02/18/19 05:46 03/09/19 05:45 Geovany Yang MD Mar 04, 2019 11:03"
--- NOTE | 2019-03-04 12:11 | NUR ---
NURSE NOTES: Patient suctioned as tolerated, mouth care done.HOB elevated to prevent aspiration.Turned and repositioned for skin management and comfort.No significant change in condition at this time.Will continue to monitor
--- NOTE | 2019-03-04 12:52 | NUR ---
CASE MANAGEMENT:REVIEW 03/04/19 SI: SEPSIS. PNA SACRAL DECUB. CHRONIC RESP FAILURE 97.8 59 18 153/54 100% ON T-PIECE VIA TRACH IS: AMIKACIN INH Q12HRS IV MEROPENEM Q12 KEPPRA GT Q12 LOPRESSOR GT IV PROTONIX Q12 HEPARIN SQ Q12 ATROPINE SL TID MUCOMYST HHN Q4HRS RTC IVF@50/HR : ICU STATUS PLAN: SEEKING [facility] THAT WILL ACCEPT PATIENT
--- NOTE | 2019-03-04 12:58 | NUR ---
DISCHARGE PLANNING DISCHARGE DISCUSSED WITH DR CABA THIS MORNING. HE SAID HE WILL BE VISITING BOTH [facility] AND [facility] TODAY AND WILL VERIFY BED AVAILABILITY
--- NOTE | 2019-03-04 14:02 | NUR ---
NURSE NOTES: Patient turned and repositioned, all wounds dressing changed.Kept clean and dry , no significant change in condition at this time.Will continue to monitor
--- NOTE | 2019-03-04 15:07 | NUR ---
NURSE NOTES:WOUND CARE FOLLOW-UP NOTES:Reabsorbed blood blister web space of index and thumb of L hand extending into palm of L hand. dry necrotic cap with loosening borders noted.L hand is edematous but no erythema or odor noted. Full thickness pressure injury L ischium. [place] granulation at base of wound with surrounding hyperpigmentation.No odor or exudate noted (L)0.6cmx (W)1.4cm. Small area of shearing within base of previous wound R ischium . Base of wound is moist and viable with surrounding hyperpigmentation with scarring.(L)1.5cm x (W)1cm..Areas of hyperpigmentation R and L sacrum with dry peeling skin .No erythema or induration noted. Bilat heels are soft but easily blanchable. Bilat foot drop noted. Wound tx are effective and continued as ordered. All wound prevention protocols continued as care-planned.
--- NOTE | 2019-03-04 15:44 | Surgery Progress Note ---
Surgery Progress Note Subjective Additional Comments pending placement comortable appearing stable Objective Last 24 Hour Vital Signs Date Time Temp Pulse Resp B/P (MAP) Pulse Ox O2 Delivery O2 Flow Rate FiO2 03/04/19 14:43 74 20 100 T-Piece 6.0 28 72 20 100 03/04/19 14:00 83 23 141/54 (83) 100 03/04/19 13:00 82 20 144/60 (88) 100 03/04/19 12:46 100 T-Piece 6.0 28 03/04/19 12:00 8.0 30 03/04/19 12:00 83 03/04/19 12:00 T-piece 8.0 03/04/19 12:00 97.8 59 18 153/54 (87) 100 03/04/19 11:00 96 24 148/62 (90) 100 03/04/19 10:49 60 20 100 T-Piece 6.0 28 88 20 100 03/04/19 10:00 82 20 136/64 (88) 100 03/04/19 09:11 69 18 100 T-Piece 6.0 28 85 20 100 03/04/19 09:00 85 19 141/58 (85) 100 03/04/19 08:00 61 03/04/19 08:00 8.0 30 03/04/19 08:00 98.6 59 18 153/54 (87) 100 03/04/19 08:00 T-piece 8.0 03/04/19 07:31 62 20 100 T-Piece 6.0 28 03/04/19 07:28 60 20 100 T-Piece 6.0 28 62 20 100 03/04/19 07:27 100 T-Piece 6.0 28 03/04/19 07:00 66 20 98/48 (65) 96 03/04/19 06:00 68 22 142/53 (82) 100 03/04/19 05:00 118 16 164/67 (99) 99 03/04/19 04:00 62 03/04/19 04:00 8.0 30 03/04/19 04:00 T-piece 8.0 03/04/19 04:00 98.8 62 19 156/59 (91) 100 03/04/19 03:44 67 17 100 T-Piece 8.0 30 66 20 100 12/4/19 03:00 68 22 152/61 (91) 100 03/04/19 02:00 73 21 132/61 (84) 100 03/04/19 01:49 100 T-Piece 8.0 30 03/04/19 01:00 65 21 135/52 (79) 100 03/04/19 00:00 87 03/04/19 00:00 T-piece 8.0 03/04/19 00:00 8.0 30 03/04/19 00:00 98.4 63 19 137/58 (84) 100 03/03/19 23:34 71 19 100 T-Piece 8.0 30 67 17 100 03/03/19 23:00 66 20 96/54 (68) 98 03/03/19 22:00 68 20 136/57 (83) 100 03/03/19 21:16 69 18 100 T-Piece 8.0 30 73 20 100 03/03/19 21:00 66 18 121/74 (90) 100 03/03/19 20:00 98.6 64 19 102/45 (64) 98 03/03/19 20:00 68 03/03/19 20:00 T-piece 8.0 03/03/19 20:00 8.0 30 03/03/19 19:00 61 19 125/52 (76) 100 03/03/19 18:58 100 T-Piece 8.0 30 03/03/19 18:58 72 20 100 T-Piece 8.0 30 03/03/19 18:58 68 18 100 T-Piece 8.0 30 72 20 100 03/03/19 18:00 80 20 144/58 (86) 100 03/03/19 17:00 64 17 140/81 (100) 100 03/03/19 16:00 55 18 112/57 (75) 99 03/03/19 16:00 8.0 30 03/03/19 16:00 T-piece 8.0 03/03/19 16:00 58 I&O Intake and Output 03/03/19 03/04/19 18:59 06:59 Intake Total 655 ml 505 ml Output Total 300 ml 350 ml Balance 355 ml 155 ml Free Water 180 ml 100 ml IV Total 55 ml 55 ml Tube Feeding 420 ml 350 ml Output Urine Total 300 ml 350 ml # Voids 1 # Bowel Movements 1 Dressing: other Wound: other Drains: other Cardiovascular: RSR Respiratory: decreased breath sounds Abdomen: soft, present bowel sounds Extremities: no cyanosis, other Laboratory Tests Test 03/04/19 04:00 White Blood Count 7.5 K/UL (4.8-10.8) Red Blood Count 3.55 M/UL (4.20-5.40) L Hemoglobin 9.7 G/DL (12.0-16.0) L Hematocrit 30.6 % (37.0-47.0) L Mean Corpuscular Volume 86 FL (80-99) Mean Corpuscular Hemoglobin 27.4 PG (27.0-31.0) Mean Corpuscular Hemoglobin Concent 31.8 G/DL (32.0-36.0) L Red Cell Distribution Width 16.7 % (11.6-14.8) H Platelet Count 226 K/UL (150-450) Mean Platelet Volume 7.2 FL (6.5-10.1) Neutrophils (%) (Auto) 51.3 % (45.0-75.0) Lymphocytes (%) (Auto) 37.0 % (20.0-45.0) Monocytes (%) (Auto) 4.7 % (1.0-10.0) Eosinophils (%) (Auto) 6.2 % (0.0-3.0) H Basophils (%) (Auto) 0.8 % (0.0-2.0) Plan Problems: (1) Sacral decubitus ulcer Assessment & Plan: This is a 83-year-old female with multiple medical committees that is currently admitted for medical care and management and identified to have multiple wounds requiring care. On admission patient noted to have a resolved sacral decubitus ulcer. Has had prior care and is well-healed at this time. Will ensure it does not open up again. Patient has a right ischial decubitus ulcer that is resolved. Scar intact and well formed. Will monitor to ensure it does not open up again. Patient has a left ischial decubitus ulcer that can be identified to be stage IV with palpable bone that has been resolving as noted by the periwound tissue and scar but open area approximately 1 cm x 1.5 cm few millimeters deep to bone identified. Unsure if this is been to be completely healed prior and has since opened or if has been healing at this level. No foul odor no drainage was unsure local wound care until healed Bilateral heels soft without signs of injury Resolving pressure injury L ischium(L)1.8cm x (W)1cm.Scattered biofilm at base of wound. Edges flat and adherent with surrounding hyperpigmentation. No odor or exudate noted. Sacrum is pale pink with surrounding hyperpigmentation. Hyperpigmentation R ischium with small sheared area centrally.No areas of erythema or exudate noted. Both heels are soft but blanchable. Skin Assessed under collar of trach and no evidence of skin breakdown noted. All wound Tx. are effective and continued as ordered. Pt ahs an APM/Belén mattress overlay and is being repositioned per protocols and per tolerance.No new skin concerns noted. Full thickness pressure injury L Ischium with small amt biofilm (L)1.8cm x (W) 1cm. Surrounding pink hyperpigmentation. No odor or exudate noted. [place] hyperpigmentation from previous wound noted to sacrum. Pt also noted to have Cat 2 Skin Tear dorsal L hand, L 5th metatarsal extending into palm of hand. 80% skin flap in situ.Both heels are dry firm and blanchable. No other skin concerns noted. Cleanse Blister Dorsal and palm of L hand with saline. Versatel One Silicone Contact Layer(Applied). Apply Silvasorb Gel. Wrap with Kerlix Gauze.Change every 7 days and prn. Apply Moisture Barrier to sacrum. Cover with Optifoam drsg. Change every 3 days and prn. Cleanse L ischial wound with saline. Apply Therahoney. Apply Moisture Barrier Paste periwound. Cover with Optifoam drsg. Change every 3 days and prn. Apply Cavilon Skin Barrier to both heels. Cover each heel with Optifoam drsg. Change every 7 days and prn. APM/BELÉN Mattress overlay. Reposition at least every 2hours or as tolerated. Off-load heels with pillow. Nutritional optimization We will monitor follow with recommendations cont with above upon d/c (2) Sepsis Assessment & Plan: IV abx as per ID trend labs improving wounds unlikely etiology likely respiratory imaging noted and okay abnormal lft's stable PICC on Abx in ICU for desaturation CXR with consolidation Evidence of left lower lobe pneumonia, also previously demonstrated Gastrostomy in good position Mild diastasis of the rectus abdominis musculature again demonstrated Retrosacral decubitus changes, better depicted on prior exam which included the pelvis Small hiatal hernia with evidence of trace gastroesophageal reflux (3) Feeding by G-tube Assessment & Plan: DAILY ESTIMATED NEEDS: Needs based on Pulmonary, wounds, bedbound/ 60kg adj 25-28 kcals/kg 3627-8006 total kcals 1.25-2 g protein/kg 75-120 g total protein 25-30 mL/kg 9059-6906 total fluid mLs NUTRITION DIAGNOSIS: * Swallowing difficulty R/T respiratory status as evidenced by pt on T-collar, now back the vent, PEG dep, TF changed to low rate at this time due to episodes of vomiting + residuals. * Increased kcal/prot needs R/T wound healing as evidenced by BL buttocks and sacral wound photos, refer to eval. (CURRENT TF:Glucerna 1.5 @35ml) ENTERAL NUTRITION RECOMMENDATIONS: VITAL AF 1.2 @ 55ml/hr x 24 hrs to provide 1320ml, 1584kcal, 99g prot, 1060ml free water - Once medically appropriate to resume TF, rec to initiate elemental and carb control formula of Vital 1.2 for possible improved tolerance - Initiate VITAL 1.2 @ 25ml/hr x 6hrs, advance 10ml q 4-6 hrs as tolerated to goal rate - Flush per MD/ HOB over 30 degrees ADDITIONAL RECOMMENDATIONS: 1) Re-calibrated bedscale wt for accurate CBW 2) Wound healing: Add Cristian 1pkt BID w/ improved Tf tolerace + MVI x1 daily 3) Monitor lytes, replete as needed (low Mg, K) 4) Monitor NPO status, ability to resume TF. -> held on and off due to vomiting since 02/02 5) SSI prn resume tube feeds (4) Chronic vegetative state Assessment & Plan: incontinence of urine and stool. can soil dressings. nurses doing great job with monitoring and changing prn (5) Leukocytosis Walter Madera Mar 04, 2019 15:44
--- NOTE | 2019-03-04 15:52 | Pulmonolgy Critical Care Note ---
Critical Care - Asmt/Plan Assessment/Plan: Pulmonary CCM Progress Note Assessment/Plan Impression: Sepsis syndrome Pneumonia VDRF, Trach, G tube, Hypertension, Cardiac disease, Dementia, Previous CVA, Seizure disorder, Respiratory failure with hypoxia Anemia Sacral ulcer renal cyst pulmonary congestion Plan respiratory care to continue as is, TC as tolerated atropine neb therapy SNF meds as is off vent as able and has been off for several day Oxygen as needed Monitor labs daily changes noted and reviewed feeds as tolerated monitor albumin levels and provide protein and nutrition elevate head aspiration precautions Patient is a DNR. No CPR. ICU care reviewed medications/laboratory data/nursing notes/ICU care reviewed in detail note reviewed and edited care discussed with RN and RT ICU time spent 45 minutes Subjective Allergies: Coded Allergies: CODEINE (Verified Allergy, Unknown, HIVES, 09/15/09) Subjective respiratory care noted congestion- improved with atropine ICU care reviewed supportive care noted and reviewed RT care reviewed overnight care noted findings reviewed and discussed in detail with nursing and RT seen earlier this am Objective Vital Signs Noted Objective WDWN NAD contracted off vent reduced breath sounds bilaterally with some rhonchi overall; no wheeze [id number] without MRG NABS nontender no HSM no CC minimal nonfocal nonverbal trach and gt reviewed and edited Laboratory Tests Noted Critical Care - Objective Last 24 Hour Vital Signs Date Time Temp Pulse Resp B/P (MAP) Pulse Ox O2 Delivery O2 Flow Rate FiO2 03/04/19 14:43 74 20 100 T-Piece 6.0 28 72 20 100 03/04/19 14:00 83 23 141/54 (83) 100 03/04/19 13:00 82 20 144/60 (88) 100 03/04/19 12:46 100 T-Piece 6.0 28 03/04/19 12:00 8.0 30 03/04/19 12:00 83 03/04/19 12:00 T-piece 8.0 03/04/19 12:00 97.8 59 18 153/54 (87) 100 03/04/19 11:00 96 24 148/62 (90) 100 03/04/19 10:49 60 20 100 T-Piece 6.0 28 88 20 100 03/04/19 10:00 82 20 136/64 (88) 100 03/04/19 09:11 69 18 100 T-Piece 6.0 28 85 20 100 03/04/19 09:00 85 19 141/58 (85) 100 03/04/19 08:00 61 03/04/19 08:00 8.0 30 03/04/19 08:00 98.6 59 18 153/54 (87) 100 03/04/19 08:00 T-piece 8.0 03/04/19 07:31 62 20 100 T-Piece 6.0 28 03/04/19 07:28 60 20 100 T-Piece 6.0 28 62 20 100 03/04/19 07:27 100 T-Piece 6.0 28 03/04/19 07:00 66 20 98/48 (65) 96 03/04/19 06:00 68 22 142/53 (82) 100 03/04/19 05:00 118 16 164/67 (99) 99 03/04/19 04:00 62 03/04/19 04:00 8.0 30 03/04/19 04:00 T-piece 8.0 03/04/19 04:00 98.8 62 19 156/59 (91) 100 03/04/19 03:44 67 17 100 T-Piece 8.0 30 66 20 100 03/04/19 03:00 68 22 152/61 (91) 100 03/04/19 02:00 73 21 132/61 (84) 100 03/04/19 01:49 100 T-Piece 8.0 30 03/04/19 01:00 65 21 135/52 (79) 100 03/04/19 00:00 87 03/04/19 00:00 T-piece 8.0 03/04/19 00:00 8.0 30 03/04/19 00:00 98.4 63 19 137/58 (84) 100 03/03/19 23:34 71 19 100 T-Piece 8.0 30 67 17 100 03/03/19 23:00 66 20 96/54 (68) 98 03/03/19 22:00 68 20 136/57 (83) 100 03/03/19 21:16 69 18 100 T-Piece 8.0 30 73 20 100 03/03/19 21:00 66 18 121/74 (90) 100 03/03/19 20:00 98.6 64 19 102/45 (64) 98 03/03/19 20:00 68 12/3/19 20:00 T-piece 8.0 03/03/19 20:00 8.0 30 03/03/19 19:00 61 19 125/52 (76) 100 03/03/19 18:58 100 T-Piece 8.0 30 03/03/19 18:58 72 20 100 T-Piece 8.0 30 03/03/19 18:58 68 18 100 T-Piece 8.0 30 72 20 100 03/03/19 18:00 80 20 144/58 (86) 100 03/03/19 17:00 64 17 140/81 (100) 100 03/03/19 16:00 55 18 112/57 (75) 99 03/03/19 16:00 8.0 30 03/03/19 16:00 T-piece 8.0 03/03/19 16:00 58 Critical Care - Subjective ROS Limited/Unobtainable: No FI02: 28 Vent Support Mode: CPAP Vent Tidal Volume: 450 Sputum Amount: Small PEEP: 5.0 PIP: 19 Tube Feeding Amount: 35 I&O: Intake and Output 03/03/19 03/04/19 18:59 06:59 Intake Total 655 ml 505 ml Output Total 300 ml 350 ml Balance 355 ml 155 ml Free Water 180 ml 100 ml IV Total 55 ml 55 ml Tube Feeding 420 ml 350 ml Output Urine Total 300 ml 350 ml # Voids 1 # Bowel Movements 1 ET-Tube: 6.0 Bg Moffett MD Mar 04, 2019 15:52
--- NOTE | 2019-03-04 16:09 | NUR ---
NURSE NOTES: ADLs done, mouth care provided and suctioned as tolerated.Turned and repositioned for comfort and skin management, HOB elevated to prevent aspiration.No significant change in condition. Will continue to monitor
--- NOTE | 2019-03-04 18:10 | NUR ---
NURSE NOTES: Patient remains hemodynamically stable, no apparent s/s acute distress or significant change in condition.Adls done,turned and repositioned for comfort and skin management.Will continue to monitor.HOB elevated to prevent aspiration and mouth care done.Call light within easy reach.
--- NOTE | 2019-03-04 19:12 | NUR ---
HAND-OFF: Report given to Casimiro Armstrong.
--- NOTE | 2019-03-04 20:00 | NUR ---
NURSE NOTES: received awake does not follows command upper extremities and lower extremities no move moment trach shiley 6 -t-piece 30 o/ofio2 o2 sat 100 gt with glucerna at 30 cc/hr infusing no residualand water [id number] per 4hr had incont urine bed bath done
[2019-03-04] MEDS: Dyna-Hex 2% Top Sol 2oz TOPIC SCH (20:23)
--- NOTE | 2019-03-04 21:45 | Progress Note ---
DATE: 02/28/2019 CARDIOLOGY PROGRESS NOTE Late entry. SUBJECTIVE: Remains on trach, congested, moderate secretions at times. Sinus rhythm. PHYSICAL EXAMINATION: VITAL SIGNS: Blood pressure 138/52, heart rate 75, respiratory rate 20. GENERAL: Unresponsive at baseline. LUNGS: Bilateral breath sounds. Few rhonchi. CARDIAC: Regular rhythm and rate. Normal S1 and S2. ABDOMEN: Soft, nontender. G-tube intact. EXTREMITIES: Trace dependent edema. IMPRESSION: 1. Healthcare-acquired pneumonia. 2. Parapneumonic effusion. 3. Acute on chronic diastolic congestive heart failure. 4. Anemia, multifactorial status post transfusions. PLAN: 1. Respiratory hygiene. 2. Bronchodilators. 3. Antimicrobials per staff. 4. Beta-martha and anti-platelet therapy with aspirin. Bg Hagen M.D. DR: Stephanie JOB#: [id number] CC:
--- NOTE | 2019-03-04 22:00 | Progress Note ---
DATE: 02/27/2019 CARDIOLOGY PROGRESS NOTE This is a late entry. SUBJECTIVE: Case was discussed with consulting staff. The patient remains on ventilator support and still has intermittent congestion with moderate secretions. Monitored rhythm remains sinus. OBJECTIVE: VITAL SIGNS: Blood pressure 127/96, pulse 71, respirations 22. Afebrile. LUNGS: Coarse breath sounds. Bilateral rhonchi. CARDIAC: Regular rhythm and rate. Normal S1, S2. ABDOMEN: Soft. G-tube intact. EXTREMITIES: Trace dependent edema. SKIN: T-tube in place. LABORATORY DATA: White count 7.3, hemoglobin 9.7. Sodium 144, potassium 4.6, bicarb 36, BUN 29, creatinine 1.1. Albumin 2.8. IMPRESSION: 1. Acute on chronic respiratory acidosis. 2. Compensatory metabolic alkalosis. 3. Prerenal azotemia. 4. Chronic diastolic congestive heart failure. 5. Hypertensive heart disease. 6. Healthcare-acquired pneumonia. 7. Respiratory failure. 8. Advanced dementia. 9. Moderate protein-calorie malnutrition. PLAN: 1. Still awaiting placement. 2. No current indication for diuresis. 3. May need additional hydration with water by G-tube or hypotonic IV fluids. 4. Respiratory hygiene. 5. DVT and stress ulcer prophylaxes. Bg Hagen M.D. : PHUONG JOB#: [id number] CC:
--- NOTE | 2019-03-04 22:00 | NUR ---
NURSE NOTES: reposition and suction restless at interval
--- NOTE | 2019-03-04 22:31 | Progress Note ---
DATE: 03/04/2019 CARDIOLOGY PROGRESS NOTE SUBJECTIVE: The patient has some slow heart rate. Beta-martha was discontinued. She still has secretion. Coarse breath sounds. Few rhonchi. PHYSICAL EXAMINATION: CARDIAC: Regular rhythm and rate. Normal S1, S2. ABDOMEN: Soft. EXTREMITIES: Trace edema. LABORATORY AND DIAGNOSTIC DATA: Yesterdays labs were reviewed. IMPRESSION: 1. Healthcare-acquired pneumonia. 2. Respiratory failure. 3. Advanced dementia. 4. Chronic diastolic congestive heart failure. 5. Seizure disorder. 6. Gastroparesis. 7. Dysphagia. 8. Severe protein-calorie malnutrition. 9. Sinus bradycardia previously on beta-martha. PLAN: 1. Antimicrobials. 2. Respiratory hygiene. 3. Trach collar care. 4. Nutrition by feeding tube. 5. Respiratory hygiene. 6. Observe off beta-martha for now. 7. Monitor for secondary tachyarrhythmias. Bg Hagen M.D. DR: Stephanie JOB#: [id number] CC:
--- NOTE | 2019-03-04 23:24 | General Progress Note ---
Assessment/Plan Status: stable, progressing Assessment/Plan: Assessment - N/V, periodic - suspect due to gastroparesis - will hold off on G to J conversion per daughter request - Elevated Alk phos / LFT - CT negative - abd U/S negative - check hepatitis serologies - negative - Anemia with OB (-) stools - Resp failure, s/p Trach - dysphagia, s/p PEG - OBS - minor GT tract inflammation / infection - poor Px Recommendations - laxative PRN - antibiotic ointment to GT site PRN - continue TF - aspiration precautions - elevate HOB - PPI Subjective Allergies: Coded Allergies: CODEINE (Verified Allergy, Unknown, HIVES, 09/15/09) Subjective tolerating TF d/w RN Objective Last 24 Hour Vital Signs Date Time Temp Pulse Resp B/P (MAP) Pulse Ox O2 Delivery O2 Flow Rate FiO2 03/04/19 22:00 60 16 137/61 (86) 100 03/04/19 21:00 63 12 116/54 (74) 100 03/04/19 20:00 68 03/04/19 20:00 8.0 30 03/04/19 20:00 T-piece 8.0 03/04/19 20:00 97.5 69 19 110/88 (95) 100 03/04/19 20:00 100 T-Piece 6.0 28 03/04/19 20:00 67 20 100 T-Piece 6.0 28 03/04/19 19:00 87 20 150/61 (90) 100 03/04/19 18:00 65 20 108/49 (68) 99 03/04/19 17:00 77 17 142/62 (88) 100 03/04/19 16:00 98.5 94 27 146/68 (94) 100 03/04/19 16:00 8.0 30 03/04/19 16:00 T-piece 8.0 03/04/19 16:00 74 03/04/19 15:00 76 21 127/52 (77) 100 03/04/19 14:43 74 20 100 T-Piece 6.0 28 72 20 100 03/04/19 14:00 83 23 141/54 (83) 100 03/04/19 13:00 82 20 144/60 (88) 100 03/04/19 12:46 100 T-Piece 6.0 28 03/04/19 12:00 8.0 30 03/04/19 12:00 83 03/04/19 12:00 T-piece 8.0 03/04/19 12:00 97.8 59 18 153/54 (87) 100 03/04/19 11:00 96 24 148/62 (90) 100 03/04/19 10:49 60 20 100 T-Piece 6.0 28 88 20 100 03/04/19 10:00 82 20 136/64 (88) 100 03/04/19 09:11 69 18 100 T-Piece 6.0 28 85 20 100 03/04/19 09:00 85 19 141/58 (85) 100 03/04/19 08:00 61 03/04/19 08:00 8.0 30 03/04/19 08:00 98.6 59 18 153/54 (87) 100 03/04/19 08:00 T-piece 8.0 03/04/19 07:31 62 20 100 T-Piece 6.0 28 03/04/19 07:28 60 20 100 T-Piece 6.0 28 62 20 100 03/04/19 07:27 100 T-Piece 6.0 28 03/04/19 07:00 66 20 98/48 (65) 96 03/04/19 06:00 68 22 142/53 (82) 100 03/04/19 05:00 118 16 164/67 (99) 99 03/04/19 04:00 62 03/04/19 04:00 8.0 30 03/04/19 04:00 T-piece 8.0 03/04/19 04:00 98.8 62 19 156/59 (91) 100 03/04/19 03:44 67 17 100 T-Piece 8.0 30 66 20 100 03/04/19 03:00 68 22 152/61 (91) 100 03/04/19 02:00 73 21 132/61 (84) 100 03/04/19 01:49 100 T-Piece 8.0 30 03/04/19 01:00 65 21 135/52 (79) 100 03/04/19 00:00 87 03/04/19 00:00 T-piece 8.0 03/04/19 00:00 8.0 30 03/04/19 00:00 98.4 63 19 137/58 (84) 100 03/03/19 23:34 71 19 100 T-Piece 8.0 30 67 17 100 Intake and Output 03/03/19 03/04/19 19:00 07:00 Intake Total 655 ml 505 ml Output Total 300 ml 350 ml Balance 355 ml 155 ml Free Water 180 ml 100 ml IV Total 55 ml 55 ml Tube Feeding 420 ml 350 ml Output Urine Total 300 ml 350 ml # Voids 1 # Bowel Movements 1 Laboratory Tests 03/04/19 04:00: White Blood Count 7.5, Red Blood Count 3.55L, Hemoglobin 9.7L, Hematocrit 30.6L , Mean Corpuscular Volume 86, Mean Corpuscular Hemoglobin 27.4, Mean Corpuscular Hemoglobin Concent 31.8L, Red Cell Distribution Width 16.7H, Platelet Count 226, Mean Platelet Volume 7.2, Neutrophils (%) (Auto) 51.3, Lymphocytes (%) (Auto) 37.0, Monocytes (%) (Auto) 4.7, Eosinophils (%) (Auto) 6.2H, Basophils (%) (Auto) 0.8 Height (Feet): 5 Height (Inches): 5.00 Weight (Pounds): 180 Objective Debilitated AA woman NCAT (+) trach coarse ronchi RR obese abd, (+) GT no edema Celio Vaughan MD Mar 04, 2019 23:24
[2019-03-05] VITALS (24 sets, daily range): BP systolic 102–171; BP diastolic 46–108
--- NOTE | 2019-03-05 | NUR ---
NURSE NOTES: pt pull out her ngt out even with restraint on ngt reinserted and kub done
--- NOTE | 2019-03-05 02:00 | NUR ---
NURSE NOTES: reposition and suctions
--- NOTE | 2019-03-05 04:00 | NUR ---
NURSE NOTES: complete bed bath and wound care done tube feeding off gt tube leking
[2019-03-05] MEDS: Acetylcysteine 20% Soln 4ml HHN SCH ×6 (04:25→23:48)
[2019-03-05] MEDS: Albuterol/Ipratropium 3ml neb HHN PRN ×6 (04:25→23:48)
[2019-03-05 04:34] LABS: HEMATOCRIT 18.6 % (37.0-47.0); MEAN CORPUSCULAR VOLUME 86 FL (80-99); PLATELET COUNT 232 K/UL (150-450); RED BLOOD COUNT 2.17 M/UL (4.20-5.40); RED CELL DISTRIBUTION WIDTH 16.7 % (11.6-14.8); WHITE BLOOD COUNT 7.5 K/UL (4.8-10.8)
--- NOTE | 2019-03-05 06:00 | NUR ---
NURSE NOTES: dr meredith in and seen pt was inform regarding cbc result and gt tube
--- NOTE | 2019-03-05 06:54 | General Progress Note ---
Assessment/Plan Problem List: (1) Seizure ICD Codes: R56.9 - Unspecified convulsions SNOMED: 66058157 (2) Anemia ICD Codes: D64.9 - Anemia, unspecified SNOMED: 391099753 Qualifiers: Qualified Codes: D64.9 - Anemia, unspecified (3) Sepsis ICD Codes: A41.9 - Sepsis, unspecified organism SNOMED: 64949671, 411279661 Qualifiers: Qualified Codes: A41.9 - Sepsis, unspecified organism (4) Respiratory failure with hypoxia ICD Codes: J96.91 - Respiratory failure, unspecified with hypoxia SNOMED: 40483190425458038 Qualifiers: Qualified Codes: J96.21 - Acute and chronic respiratory failure with hypoxia (5) HCAP (healthcare-associated pneumonia) ICD Codes: J18.9 - Pneumonia, unspecified organism SNOMED: 089810842, 328647461 (6) Sacral decubitus ulcer ICD Codes: L89.159 - Pressure ulcer of sacral region, unspecified stage SNOMED: 475950310 (7) HTN (hypertension) ICD Codes: I10 - Essential (primary) hypertension SNOMED: 53468705 (8) Chronic vegetative state ICD Codes: R40.3 - Persistent vegetative state SNOMED: 39299653 (9) Chronic respiratory failure ICD Codes: J96.10 - Chronic respiratory failure, unspecified whether with hypoxia or hypercapnia SNOMED: 99296677 (10) Limited mobility ICD Codes: Z74.09 - Other reduced mobility SNOMED: 0432321 Status: stable, progressing Assessment/Plan: vent prn as needed resp rx suctioning as needed gt feeds monitor for vomiting bowel regime monitor residuals sx rx monitor bp repeat cbc may need transfusion gi follow up regarding leaking gt Subjective ROS Limited/Unobtainable: Yes Constitutional: Reports: malaise, weakness HEENT: Reports: no symptoms Cardiovascular: Reports: no symptoms Respiratory: Reports: cough Gastrointestinal/Abdominal: Reports: difficulty swallowing Genitourinary: Reports: no symptoms Neurologic/Psychiatric: Reports: pre-existing deficit, seizure Endocrine: Reports: no symptoms Hematologic/Lymphatic: Reports: anemia Allergies: Coded Allergies: CODEINE (Verified Allergy, Unknown, HIVES, 09/15/09) All Systems: reviewed and negative except above Subjective no events, labs noted. decreased h/h. no reports of bleeding. GT has leak Objective Last 24 Hour Vital Signs Date Time Temp Pulse Resp B/P (MAP) Pulse Ox O2 Delivery O2 Flow Rate FiO2 03/05/19 06:00 64 20 167/60 (95) 100 03/05/19 05:00 97.8 69 21 171/65 (100) 100 03/05/19 04:00 68 03/05/19 04:00 71 20 100 T-Piece 6.0 28 70 20 100 03/05/19 04:00 8.0 30 03/05/19 04:00 70 21 159/61 (93) 100 03/05/19 04:00 T-piece 8.0 03/05/19 03:00 69 21 160/58 (92) 100 03/05/19 02:00 67 21 158/57 (90) 100 03/05/19 01:30 100 T-Piece 6.0 28 03/05/19 01:00 62 21 141/59 (86) 100 03/05/19 01:00 62 21 141/59 (86) 100 03/05/19 00:00 63 19 100 03/05/19 00:00 98.4 63 19 147/62 (90) 100 03/05/19 00:00 8.0 30 03/05/19 00:00 T-piece 8.0 03/05/19 00:00 63 19 147/62 (90) 100 03/05/19 00:00 65 03/04/19 23:00 60 16 153/61 (91) 100 03/04/19 22:00 60 16 137/61 (86) 100 03/04/19 22:00 78 20 100 T-Piece 6.0 28 74 20 99 03/04/19 21:00 63 12 116/54 (74) 100 03/04/19 20:00 68 03/04/19 20:00 8.0 30 03/04/19 20:00 T-piece 8.0 03/04/19 20:00 97.5 69 19 110/88 (95) 100 03/04/19 20:00 100 T-Piece 6.0 28 03/04/19 20:00 67 20 100 T-Piece 6.0 28 03/04/19 19:00 87 20 150/61 (90) 100 03/04/19 18:00 65 20 108/49 (68) 99 03/04/19 17:00 77 17 142/62 (88) 100 03/04/19 16:00 98.5 94 27 146/68 (94) 100 03/04/19 16:00 8.0 30 03/04/19 16:00 T-piece 8.0 03/04/19 16:00 74 03/04/19 15:00 76 21 127/52 (77) 100 03/04/19 14:43 74 20 100 T-Piece 6.0 28 72 20 100 03/04/19 14:00 83 23 141/54 (83) 100 03/04/19 13:00 82 20 144/60 (88) 100 03/04/19 12:46 100 T-Piece 6.0 28 03/04/19 12:00 8.0 30 03/04/19 12:00 83 03/04/19 12:00 T-piece 8.0 03/04/19 12:00 97.8 59 18 153/54 (87) 100 03/04/19 11:00 96 24 148/62 (90) 100 03/04/19 10:49 60 20 100 T-Piece 6.0 28 88 20 100 03/04/19 10:00 82 20 136/64 (88) 100 03/04/19 09:11 69 18 100 T-Piece 6.0 28 85 20 100 03/04/19 09:00 85 19 141/58 (85) 100 03/04/19 08:00 61 03/04/19 08:00 8.0 30 03/04/19 08:00 98.6 59 18 153/54 (87) 100 03/04/19 08:00 T-piece 8.0 03/04/19 07:31 62 20 100 T-Piece 6.0 28 03/04/19 07:28 60 20 100 T-Piece 6.0 28 62 20 100 03/04/19 07:27 100 T-Piece 6.0 28 03/04/19 07:00 66 20 98/48 (65) 96 Intake and Output 03/04/19 03/05/19 19:00 07:00 Intake Total 985 ml 670 ml Output Total 70 ml Balance 985 ml 600 ml Free Water 510 ml 300 ml IV Total 55 ml 55 ml Tube Feeding 420 ml 315 ml Output Urine Total 70 ml # Voids 2 Laboratory Tests 03/05/19 03:50: White Blood Count 7.5, Red Blood Count 2.17L, Hemoglobin 6.0#*L, Hematocrit 18.6 #L, Mean Corpuscular Volume 86, Mean Corpuscular Hemoglobin 27.8, Mean Corpuscular Hemoglobin Concent 32.4, Red Cell Distribution Width 16.7H, Platelet Count 232, Mean Platelet Volume 5.1L, Neutrophils (%) (Auto) , Lymphocytes (%) (Auto) , Monocytes (%) (Auto) , Eosinophils (%) (Auto) , Basophils (%) (Auto) , Neutrophils % (Manual) [Pending], Lymphocytes % (Manual) [Pending], Platelet Estimate [Pending], Platelet Morphology [Pending] Height (Feet): 5 Height (Inches): 5.00 Weight (Pounds): 180 Objective General Appearance: WD/WN, confused. on trach collar Neck: supple Cardiovascular: normal rate, regular rhythm Respiratory/Chest: chest wall non-tender, rhonchi - bilaterally(minimal) Abdomen: normal bowel sounds, non tender, soft, no organomegaly Edema: no edema noted Arm (L), no edema noted Arm (R), no edema noted Leg (L), no edema noted Leg (R), no edema noted Pedal (L), no edema noted Pedal (R), no edema noted Generalized Neurologic: disoriented, unresponsive, aphasia Irvin Beltrán MD Mar 05, 2019 06:54
[2019-03-05] MEDS: levETIRAcetam 500mg/5ml Liquid GT SCH ×2 (08:34→20:12)
[2019-03-05] MEDS: Heparin 5000 units/ml inj SUBQ SCH ×2 (08:35→20:13)
--- NOTE | 2019-03-05 08:35 | Pulmonology Progress Note ---
Assessment/Plan Assessment/Plan Impression: Sepsis syndrome Pneumonia VDRF, Trach, G tube, Hypertension, Cardiac disease, Dementia, Previous CVA, Seizure disorder, Respiratory failure with hypoxia Anemia, worsened ? gib Sacral ulcer renal cyst pulmonary congestion Plan respiratory care to continue as is atropine as needed neb therapy as is transfusion today SNF meds as is off vent as able Oxygen as needed Monitor labs for change monitor imaging feeds as tolerated monitor albumin levels aspiration precautions difficult to place Patient is a DNR. No CPR. ICU care reviewed medications/laboratory data/nursing notes/ICU care reviewed in detail note reviewed and edited care discussed with RN and RT ICU time spent 37 minutes Subjective ROS Limited/Unobtainable: Yes Allergies: Coded Allergies: CODEINE (Verified Allergy, Unknown, HIVES, 09/15/09) Subjective respiratory care noted congestion- noted low HH noted and transfusion written ICU care reviewed supportive care and weekend events reviewed RT care reviewed overnight care noted findings reviewed and discussed seen earlier this am Objective Last 24 Hour Vital Signs Date Time Temp Pulse Resp B/P (MAP) Pulse Ox O2 Delivery O2 Flow Rate FiO2 03/05/19 08:00 69 03/05/19 08:00 T-piece 8.0 03/05/19 08:00 65 20 164/60 (94) 100 03/05/19 07:09 64 20 167/60 (95) 100 03/05/19 06:00 64 20 167/60 (95) 100 03/05/19 05:00 97.8 69 21 171/65 (100) 100 03/05/19 04:00 68 03/05/19 04:00 71 20 100 T-Piece 6.0 28 70 20 100 03/05/19 04:00 8.0 30 03/05/19 04:00 70 21 159/61 (93) 100 03/05/19 04:00 T-piece 8.0 03/05/19 03:00 69 21 160/58 (92) 100 03/05/19 02:00 67 21 158/57 (90) 100 03/05/19 01:30 100 T-Piece 6.0 28 03/05/19 01:00 62 21 141/59 (86) 100 03/05/19 01:00 62 21 141/59 (86) 100 03/05/19 00:00 63 19 100 03/05/19 00:00 98.4 63 19 147/62 (90) 100 03/05/19 00:00 8.0 30 03/05/19 00:00 T-piece 8.0 03/05/19 00:00 63 19 147/62 (90) 100 03/05/19 00:00 65 03/04/19 23:00 60 16 153/61 (91) 100 03/04/19 22:00 60 16 137/61 (86) 100 03/04/19 22:00 78 20 100 T-Piece 6.0 28 74 20 99 03/04/19 21:00 63 12 116/54 (74) 100 03/04/19 20:00 68 03/04/19 20:00 8.0 30 03/04/19 20:00 T-piece 8.0 03/04/19 20:00 97.5 69 19 110/88 (95) 100 03/04/19 20:00 100 T-Piece 6.0 28 03/04/19 20:00 67 20 100 T-Piece 6.0 28 03/04/19 19:00 87 20 150/61 (90) 100 03/04/19 18:00 65 20 108/49 (68) 99 03/04/19 17:00 77 17 142/62 (88) 100 03/04/19 16:00 98.5 94 27 146/68 (94) 100 03/04/19 16:00 8.0 30 03/04/19 16:00 T-piece 8.0 03/04/19 16:00 74 03/04/19 15:00 76 21 127/52 (77) 100 03/04/19 14:43 74 20 100 T-Piece 6.0 28 72 20 100 03/04/19 14:00 83 23 141/54 (83) 100 03/04/19 13:00 82 20 144/60 (88) 100 03/04/19 12:46 100 T-Piece 6.0 28 03/04/19 12:00 8.0 30 03/04/19 12:00 83 03/04/19 12:00 T-piece 8.0 03/04/19 12:00 97.8 59 18 153/54 (87) 100 03/04/19 11:00 96 24 148/62 (90) 100 03/04/19 10:49 60 20 100 T-Piece 6.0 28 88 20 100 12/4/19 10:00 82 20 136/64 (88) 100 03/04/19 09:11 69 18 100 T-Piece 6.0 28 85 20 100 03/04/19 09:00 85 19 141/58 (85) 100 Intake and Output 03/04/19 03/05/19 19:00 07:00 Intake Total 985 ml 670 ml Output Total 70 ml Balance 985 ml 600 ml Free Water 510 ml 300 ml IV Total 55 ml 55 ml Tube Feeding 420 ml 315 ml Output Urine Total 70 ml # Voids 2 Objective WDWN NAD contracted off vent reduced breath sounds bilaterally with some rhonchi overall; no wheeze [id number] without MRG NABS nontender no HSM no CC minimal nonfocal nonverbal trach and gt reviewed and edited Laboratory Tests 03/05/19 03:50: White Blood Count 7.5, Red Blood Count 2.17L, Hemoglobin 6.0#*L, Hematocrit 18.6 #L, Mean Corpuscular Volume 86, Mean Corpuscular Hemoglobin 27.8, Mean Corpuscular Hemoglobin Concent 32.4, Red Cell Distribution Width 16.7H, Platelet Count 232, Mean Platelet Volume 5.1L, Neutrophils (%) (Auto) , Lymphocytes (%) (Auto) , Monocytes (%) (Auto) , Eosinophils (%) (Auto) , Basophils (%) (Auto) , Neutrophils % (Manual) [Pending], Lymphocytes % (Manual) [Pending], Platelet Estimate [Pending], Platelet Morphology [Pending] Current Medications Medications (Trade) Dose Ordered Sig/Maicol Route PRN Reason Start Time Stop Time Status Last Admin Dose Admin Acetylcysteine (Mucomyst) 200 mg Q4HRT HHN 02/28/19 03:00 03/29/19 16:59 03/05/19 07:32 Albuterol/ Ipratropium (Albuterol/ Ipratropium) 3 ml Q4H PRN HHN Shortness of Breath 03/04/19 23:30 03/09/19 23:29 03/05/19 07:32 Amikacin Sulfate (Amikin) 500 mg Q12HR@10,22 INH 02/27/19 22:00 03/06/19 21:59 03/04/19 23:47 Atropine Sulfate (Atropine Opth Adriana) 1 drop TID SL 02/18/19 09:00 03/12/19 09:29 03/04/19 18:09 Bacitracin (Bacitracin 15gm tube) 1 applic THREE TIMES A DAY TOPIC 02/28/19 18:30 03/30/19 18:29 03/04/19 18:09 Chlorhexidine Gluconate (Cesilia-Hex 2%) 1 applic DAILY@1999 TOPIC 02/18/19 20:00 03/12/19 19:59 03/04/19 20:23 Famotidine (Pepcid) 20 mg BID GT 03/02/19 18:00 04/01/19 17:59 03/04/19 18:09 Heparin Sodium (Porcine) (Heparin 5000 units/ml) 5,000 units EVERY 12 HOURS SUBQ 02/18/19 09:00 03/16/19 23:14 03/04/19 20:27 Hydralazine HCl (Apresoline) 25 mg Q4H PRN GT SBP above 160 02/18/19 05:46 03/09/19 05:45 03/02/19 04:02 Levetiracetam (Keppra) 750 mg Q12HR GT 02/18/19 09:00 03/16/19 23:29 03/04/19 20:24 Meropenem 1 gm/ Sodium Chloride 55 ml @ 110 mls/hr Q12HR IVPB 03/03/19 21:00 03/08/19 20:59 03/04/19 20:24 Metoclopramide HCl (Reglan) 10 mg Q6H PRN IVP Nausea & Vomiting 02/18/19 05:46 03/09/19 05:45 Amaury Chan MD Mar 05, 2019 08:35
--- NOTE | 2019-03-05 08:38 | NUR ---
LOCALIZED DEEP STIMULATION NOT OPEENS EYES@THISTIME RECEIVED PT ON T/COLLAR SUCTIONED TK/MOD, SPUTUM HOB UP/LAB, REPEATED BY LAB, DRAW NPO FOR NOW DUE TO G/TUBE SLIGHTLY OUT OF SPACE DURING NIGHT YARA JEWELL NOTIFEID/AND AWARE WILL FOLLOW UNLESOTHERWISE V/S CONDITION STABLE
[2019-03-05 08:53] LABS: BASOPHILS % (AUTO) 0.8 % (0.0-2.0); EOSINOPHILS % (AUTO) 4.5 % (0.0-3.0); HEMATOCRIT 34.8 % (37.0-47.0); HEMOGLOBIN 10.8 G/DL (12.0-16.0); LYMPHOCYTES % (AUTO) 41.4 % (20.0-45.0); MEAN CORPUSCULAR VOLUME 85 FL (80-99); MONOCYTES % (AUTO) 6.6 % (1.0-10.0); NEUTROPHILS % (AUTO) 46.7 % (45.0-75.0); PLATELET COUNT 200 K/UL (150-450); RED CELL DISTRIBUTION WIDTH 16.4 % (11.6-14.8); WHITE BLOOD COUNT 7.8 K/UL (4.8-10.8)
[2019-03-05 09:10] LABS: ALANINE AMINOTRANSFERASE 28 U/L (12-78); ALBUMIN/GLOBULIN RATIO 0.5 (1.0-2.7); ALKALINE PHOSPHATASE 103 U/L (46-116); ANION GAP 6 mmol/L (5-15); ASPARTATE AMINO TRANSFERASE 27 U/L (15-37); BILIRUBIN,TOTAL 0.4 MG/DL (0.2-1.0); BLOOD UREA NITROGEN 24 mg/dL (7-18); CALCIUM 9.6 MG/DL (8.5-10.1); CARBON DIOXIDE 30 MMOL/L (21-32); CHLORIDE 107 MMOL/L (98-107); CREATININE 0.9 MG/DL (0.55-1.30); POTASSIUM 4.1 MMOL/L (3.5-5.1); SODIUM 143 MMOL/L (136-145)
--- NOTE | 2019-03-05 10:15 | NUR ---
1015 NO MAICO V/S CONDITION
[2019-03-05] MEDS: Meropenem 1 GM in NS 55 ML IVPB SCH (10:26)
[2019-03-05] MEDS: Bacitracin Oint 15gm Tube TOPIC SCH ×3 (10:26→17:22)
[2019-03-05] MEDS: Amikacin for Inhalation 2ML INH SCH (10:28)
--- NOTE | 2019-03-05 12:30 | NUR ---
1230 PT SEEN BY YARA JEWELL REINSERTED #20 G/TUBE KUB ORDERED WILL FOLLOW
--- NOTE | 2019-03-05 13:38 | Nephrology Progress Note ---
Assessment/Plan Problem List: (1) Acute renal failure (ARF) Assessment: Cr stable (2) Chronic respiratory failure (3) Anemia (4) Sepsis Assessment Acute renal failure Respiratory failure - Trach Low Mag- Low k , Low Na Anemia UTI / Sepsis Proteinuria / HypoAlbuminemia high Trigs Sz decubs bed bound DNR Plan repeat H&H is wnl bolus Albumin high K likely hemolysis K and Mag and Phos supplement as needed Hydrate Urine studies avoid Nephrotoxics mag K Phos supplements as needed monitor renal parameters Subjective ROS Limited/Unobtainable: Yes Objective Objective Last 24 Hour Vital Signs Date Time Temp Pulse Resp B/P (MAP) Pulse Ox O2 Delivery O2 Flow Rate FiO2 03/05/19 12:30 100 T-Piece 6.0 28 03/05/19 12:00 73 03/05/19 12:00 T-piece 8.0 03/05/19 12:00 97.4 76 21 154/46 (82) 97 03/05/19 12:00 8.0 30 03/05/19 11:00 67 21 146/50 (82) 100 03/05/19 10:56 69 19 100 T-Piece 6.0 28 67 26 100 03/05/19 10:00 73 20 156/59 (91) 100 03/05/19 09:00 97.3 66 16 147/63 (91) 100 03/05/19 08:00 69 03/05/19 08:00 T-piece 8.0 03/05/19 08:00 8.0 30 03/05/19 08:00 65 20 164/60 (94) 100 03/05/19 07:47 68 19 100 T-Piece 6.0 28 69 21 100 03/05/19 07:32 100 T-Piece 6.0 28 03/05/19 07:09 64 20 167/60 (95) 100 03/05/19 06:00 64 20 167/60 (95) 100 03/05/19 05:00 97.8 69 21 171/65 (100) 100 03/05/19 04:00 68 03/05/19 04:00 71 20 100 T-Piece 6.0 28 70 20 100 03/05/19 04:00 8.0 30 03/05/19 04:00 70 21 159/61 (93) 100 03/05/19 04:00 T-piece 8.0 03/05/19 03:00 69 21 160/58 (92) 100 03/05/19 02:00 67 21 158/57 (90) 100 03/05/19 01:30 100 T-Piece 6.0 28 03/05/19 01:00 62 21 141/59 (86) 100 03/05/19 01:00 62 21 141/59 (86) 100 03/05/19 00:00 63 19 100 03/05/19 00:00 98.4 63 19 147/62 (90) 100 03/05/19 00:00 8.0 30 03/05/19 00:00 T-piece 8.0 03/05/19 00:00 63 19 147/62 (90) 100 03/05/19 00:00 65 03/04/19 23:00 60 16 153/61 (91) 100 03/04/19 22:00 60 16 137/61 (86) 100 03/04/19 22:00 78 20 100 T-Piece 6.0 28 74 20 99 03/04/19 21:00 63 12 116/54 (74) 100 03/04/19 20:00 68 03/04/19 20:00 8.0 30 03/04/19 20:00 T-piece 8.0 03/04/19 20:00 97.5 69 19 110/88 (95) 100 03/04/19 20:00 100 T-Piece 6.0 28 03/04/19 20:00 67 20 100 T-Piece 6.0 28 03/04/19 19:00 87 20 150/61 (90) 100 03/04/19 18:00 65 20 108/49 (68) 99 03/04/19 17:00 77 17 142/62 (88) 100 03/04/19 16:00 98.5 94 27 146/68 (94) 100 03/04/19 16:00 8.0 30 03/04/19 16:00 T-piece 8.0 03/04/19 16:00 74 03/04/19 15:00 76 21 127/52 (77) 100 03/04/19 14:43 74 20 100 T-Piece 6.0 28 72 20 100 03/04/19 14:00 83 23 141/54 (83) 100 Intake and Output 03/04/19 03/05/19 19:00 07:00 Intake Total 985 ml 670 ml Output Total 70 ml Balance 985 ml 600 ml Free Water 510 ml 300 ml IV Total 55 ml 55 ml Tube Feeding 420 ml 315 ml Output Urine Total 70 ml # Voids 2 Laboratory Tests 03/05/19 03:50: White Blood Count 7.5, Red Blood Count 2.17L, Hemoglobin 6.0#*L, Hematocrit 18.6 #L, Mean Corpuscular Volume 86, Mean Corpuscular Hemoglobin 27.8, Mean Corpuscular Hemoglobin Concent 32.4, Red Cell Distribution Width 16.7H, Platelet Count 232, Mean Platelet Volume 5.1L, Neutrophils (%) (Auto) , Lymphocytes (%) (Auto) , Monocytes (%) (Auto) , Eosinophils (%) (Auto) , Basophils (%) (Auto) , Differential Total Cells Counted 100, Neutrophils % ( Manual) 56, Lymphocytes % (Manual) 30, Monocytes % (Manual) 6, Eosinophils % ( Manual) 7H, Basophils % (Manual) 1, Band Neutrophils 0, Platelet Estimate Adequate, Platelet Morphology Normal, Hypochromasia 4+, Anisocytosis 1+, Spherocytes 2+ 03/05/19 08:25: White Blood Count 7.8, Red Blood Count 4.10L, Hemoglobin 10.8#L, Hematocrit 34.8 #L, Mean Corpuscular Volume 85, Mean Corpuscular Hemoglobin 26.4L, Mean Corpuscular Hemoglobin Concent 31.1L, Red Cell Distribution Width 16.4H, Platelet Count 200, Mean Platelet Volume 6.5, Neutrophils (%) (Auto) 46.7, Lymphocytes (%) (Auto) 41.4, Monocytes (%) (Auto) 6.6, Eosinophils (%) (Auto) 4.5H, Basophils (%) (Auto) 0.8, Sodium Level 143, Potassium Level 4.1, Chloride Level 107, Carbon Dioxide Level 30, Anion Gap 6, Blood Urea Nitrogen 24H, Creatinine 0.9, Estimat Glomerular Filtration Rate , Glucose Level 86, Calcium Level 9.6, Total Bilirubin 0.4, Aspartate Amino Transf (AST/SGOT) 27, Alanine Aminotransferase (ALT/SGPT) 28, Alkaline Phosphatase 103, Total Protein 8.5H, Albumin 3.0L, Globulin 5.5, Albumin/Globulin Ratio 0.5L Height (Feet): 5 Height (Inches): 5.00 Weight (Pounds): 180 General Appearance: no apparent distress EENT: other - trach Cardiovascular: normal rate Respiratory/Chest: decreased breath sounds Abdomen: soft Objective no change Eric Cortez MD Mar 05, 2019 13:38
--- NOTE | 2019-03-05 14:36 | Infectious Diseases Prog Note ---
Assessment/Plan Assessment/Plan A 1. Acinetobacter, Enterobacter, pseudomonas & Klebsiella pneumonia treated 2. respiratory failure 3. hypertension 4. CVA 5. dementia 6. sacral decubitus ulcer 7. rectal VRE colonization 8. Anemia 9. Proteus UTI 10. Acute renal failure 11. Leukocytosis P 1.Discontinue Meropenem & Amikacin inhaler 2. Frequent suctioning Subjective ROS Limited/Unobtainable: Yes Constitutional: Denies: fever Allergies: Coded Allergies: CODEINE (Verified Allergy, Unknown, HIVES, 09/15/09) Objective Vital Signs Last 24 Hour Vital Signs Date Time Temp Pulse Resp B/P (MAP) Pulse Ox O2 Delivery O2 Flow Rate FiO2 03/05/19 12:30 100 T-Piece 6.0 28 03/05/19 12:00 73 03/05/19 12:00 T-piece 8.0 03/05/19 12:00 97.4 76 21 154/46 (82) 97 03/05/19 12:00 8.0 30 03/05/19 11:00 67 21 146/50 (82) 100 03/05/19 10:56 69 19 100 T-Piece 6.0 28 67 26 100 03/05/19 10:00 73 20 156/59 (91) 100 03/05/19 09:00 97.3 66 16 147/63 (91) 100 03/05/19 08:00 69 03/05/19 08:00 T-piece 8.0 03/05/19 08:00 8.0 30 03/05/19 08:00 65 20 164/60 (94) 100 03/05/19 07:47 68 19 100 T-Piece 6.0 28 69 21 100 03/05/19 07:32 100 T-Piece 6.0 28 03/05/19 07:09 64 20 167/60 (95) 100 03/05/19 06:00 64 20 167/60 (95) 100 03/05/19 05:00 97.8 69 21 171/65 (100) 100 03/05/19 04:00 68 03/05/19 04:00 71 20 100 T-Piece 6.0 28 70 20 100 03/05/19 04:00 8.0 30 03/05/19 04:00 70 21 159/61 (93) 100 03/05/19 04:00 T-piece 8.0 03/05/19 03:00 69 21 160/58 (92) 100 03/05/19 02:00 67 21 158/57 (90) 100 03/05/19 01:30 100 T-Piece 6.0 28 03/05/19 01:00 62 21 141/59 (86) 100 03/05/19 01:00 62 21 141/59 (86) 100 03/05/19 00:00 63 19 100 03/05/19 00:00 98.4 63 19 147/62 (90) 100 03/05/19 00:00 8.0 30 03/05/19 00:00 T-piece 8.0 03/05/19 00:00 63 19 147/62 (90) 100 03/05/19 00:00 65 03/04/19 23:00 60 16 153/61 (91) 100 03/04/19 22:00 60 16 137/61 (86) 100 03/04/19 22:00 78 20 100 T-Piece 6.0 28 74 20 99 03/04/19 21:00 63 12 116/54 (74) 100 03/04/19 20:00 68 03/04/19 20:00 8.0 30 03/04/19 20:00 T-piece 8.0 03/04/19 20:00 97.5 69 19 110/88 (95) 100 03/04/19 20:00 100 T-Piece 6.0 28 03/04/19 20:00 67 20 100 T-Piece 6.0 28 03/04/19 19:00 87 20 150/61 (90) 100 03/04/19 18:00 65 20 108/49 (68) 99 03/04/19 17:00 77 17 142/62 (88) 100 03/04/19 16:00 98.5 94 27 146/68 (94) 100 03/04/19 16:00 8.0 30 03/04/19 16:00 T-piece 8.0 03/04/19 16:00 74 03/04/19 15:00 76 21 127/52 (77) 100 03/04/19 14:43 74 20 100 T-Piece 6.0 28 72 20 100 Height (Feet): 5 Height (Inches): 5.00 Weight (Pounds): 180 General Appearance: no acute distress HEENT: mucous membranes moist, status post trach Respiratory/Chest: rhonchi - bilaterally, other - on T bar Cardiovascular: normal rate, other - R arm PICC line Abdomen: soft, non tender, other - GT feeding Extremities: no edema Neurologic/Psychiatric: aphasia, other - opens eyes Laboratory Tests Test 03/05/19 03:50 03/05/19 08:25 White Blood Count 7.5 K/UL (4.8-10.8) 7.8 K/UL (4.8-10.8) Red Blood Count 2.17 M/UL (4.20-5.40) L 4.10 M/UL (4.20-5.40) L Hemoglobin 6.0 G/DL (12.0-16.0) 10.8 G/DL (12.0-16.0) #L Hematocrit 18.6 % (37.0-47.0) #L 34.8 % (37.0-47.0) #L Mean Corpuscular Volume 86 FL (80-99) 85 FL (80-99) Mean Corpuscular Hemoglobin 27.8 PG (27.0-31.0) 26.4 PG (27.0-31.0) L Mean Corpuscular Hemoglobin Concent 32.4 G/DL (32.0-36.0) 31.1 G/DL (32.0-36.0) L Red Cell Distribution Width 16.7 % (11.6-14.8) H 16.4 % (11.6-14.8) H Platelet Count 232 K/UL (150-450) 200 K/UL (150-450) Mean Platelet Volume 5.1 FL (6.5-10.1) L 6.5 FL (6.5-10.1) Neutrophils (%) (Auto) % (45.0-75.0) 46.7 % (45.0-75.0) Lymphocytes (%) (Auto) % (20.0-45.0) 41.4 % (20.0-45.0) Monocytes (%) (Auto) % (1.0-10.0) 6.6 % (1.0-10.0) Eosinophils (%) (Auto) % (0.0-3.0) 4.5 % (0.0-3.0) H Basophils (%) (Auto) % (0.0-2.0) 0.8 % (0.0-2.0) Differential Total Cells Counted 100 Neutrophils % (Manual) 56 % (45-75) Lymphocytes % (Manual) 30 % (20-45) Monocytes % (Manual) 6 % (1-10) Eosinophils % (Manual) 7 % (0-3) H Basophils % (Manual) 1 % (0-2) Band Neutrophils 0 % (0-8) Platelet Estimate Adequate Platelet Morphology Normal Hypochromasia 4+ Anisocytosis 1+ Spherocytes 2+ Sodium Level 143 MMOL/L (136-145) Potassium Level 4.1 MMOL/L (3.5-5.1) Chloride Level 107 MMOL/L (98-107) Carbon Dioxide Level 30 MMOL/L (21-32) Anion Gap 6 mmol/L (5-15) Blood Urea Nitrogen 24 mg/dL (7-18) H Creatinine 0.9 MG/DL (0.55-1.30) Estimat Glomerular Filtration Rate mL/min (>60) Glucose Level 86 MG/DL (74-106) Calcium Level 9.6 MG/DL (8.5-10.1) Total Bilirubin 0.4 MG/DL (0.2-1.0) Aspartate Amino Transf (AST/SGOT) 27 U/L (15-37) Alanine Aminotransferase (ALT/SGPT) 28 U/L (12-78) Alkaline Phosphatase 103 U/L (46-116) Total Protein 8.5 G/DL (6.4-8.2) H Albumin 3.0 G/DL (3.4-5.0) L Globulin 5.5 g/dL Albumin/Globulin Ratio 0.5 (1.0-2.7) L Current Medications Medications (Trade) Dose Ordered Sig/Maicol Route PRN Reason Start Time Stop Time Status Last Admin Dose Admin Acetylcysteine (Mucomyst) 200 mg Q4HRT HHN 02/28/19 03:00 03/29/19 16:59 03/05/19 10:41 Albuterol/ Ipratropium (Albuterol/ Ipratropium) 3 ml Q4H PRN HHN Shortness of Breath 03/04/19 23:30 03/09/19 23:29 03/05/19 10:41 Amikacin Sulfate (Amikin) 500 mg Q12HR@10,22 INH 02/27/19 22:00 03/06/19 21:59 03/05/19 10:28 Atropine Sulfate (Atropine Opth Adriana) 1 drop TID SL 02/18/19 09:00 03/12/19 09:29 03/05/19 10:26 Bacitracin (Bacitracin 15gm tube) 1 applic THREE TIMES A DAY TOPIC 02/28/19 18:30 03/30/19 18:29 03/05/19 10:26 Chlorhexidine Gluconate (Cesilia-Hex 2%) 1 applic DAILY@1999 TOPIC 02/18/19 20:00 03/12/19 19:59 03/04/19 20:23 Famotidine (Pepcid) 20 mg BID GT 03/02/19 18:00 04/01/19 17:59 03/04/19 18:09 Heparin Sodium (Porcine) (Heparin 5000 units/ml) 5,000 units EVERY 12 HOURS SUBQ 02/18/19 09:00 03/16/19 23:14 03/04/19 20:27 Hydralazine HCl (Apresoline) 25 mg Q4H PRN GT SBP above 160 02/18/19 05:46 03/09/19 05:45 03/02/19 04:02 Levetiracetam (Keppra) 750 mg Q12HR GT 02/18/19 09:00 03/16/19 23:29 03/04/19 20:24 Meropenem 1 gm/ Sodium Chloride 55 ml @ 110 mls/hr Q12HR IVPB 03/03/19 21:00 03/08/19 20:59 03/05/19 10:26 Metoclopramide HCl (Reglan) 10 mg Q6H PRN IVP Nausea & Vomiting 02/18/19 05:46 03/09/19 05:45 Chauncey Liriano MD Mar 05, 2019 14:35
--- NOTE | 2019-03-05 15:39 | Surgery Progress Note ---
Surgery Progress Note Subjective Additional Comments no acute events pending placement Objective Last 24 Hour Vital Signs Date Time Temp Pulse Resp B/P (MAP) Pulse Ox O2 Delivery O2 Flow Rate FiO2 03/05/19 12:30 100 T-Piece 6.0 28 03/05/19 12:00 73 03/05/19 12:00 T-piece 8.0 03/05/19 12:00 97.4 76 21 154/46 (82) 97 03/05/19 12:00 8.0 30 03/05/19 11:00 67 21 146/50 (82) 100 03/05/19 10:56 69 19 100 T-Piece 6.0 28 67 26 100 03/05/19 10:00 73 20 156/59 (91) 100 03/05/19 09:00 97.3 66 16 147/63 (91) 100 03/05/19 08:00 69 03/05/19 08:00 T-piece 8.0 03/05/19 08:00 8.0 30 03/05/19 08:00 65 20 164/60 (94) 100 03/05/19 07:47 68 19 100 T-Piece 6.0 28 69 21 100 03/05/19 07:32 100 T-Piece 6.0 28 03/05/19 07:09 64 20 167/60 (95) 100 03/05/19 06:00 64 20 167/60 (95) 100 03/05/19 05:00 97.8 69 21 171/65 (100) 100 03/05/19 04:00 68 03/05/19 04:00 71 20 100 T-Piece 6.0 28 70 20 100 03/05/19 04:00 8.0 30 03/05/19 04:00 70 21 159/61 (93) 100 03/05/19 04:00 T-piece 8.0 03/05/19 03:00 69 21 160/58 (92) 100 03/05/19 02:00 67 21 158/57 (90) 100 03/05/19 01:30 100 T-Piece 6.0 28 03/05/19 01:00 62 21 141/59 (86) 100 03/05/19 01:00 62 21 141/59 (86) 100 03/05/19 00:00 63 19 100 03/05/19 00:00 98.4 63 19 147/62 (90) 100 03/05/19 00:00 8.0 30 03/05/19 00:00 T-piece 8.0 03/05/19 00:00 63 19 147/62 (90) 100 03/05/19 00:00 65 03/04/19 23:00 60 16 153/61 (91) 100 03/04/19 22:00 60 16 137/61 (86) 100 03/04/19 22:00 78 20 100 T-Piece 6.0 28 74 20 99 03/04/19 21:00 63 12 116/54 (74) 100 03/04/19 20:00 68 03/04/19 20:00 8.0 30 03/04/19 20:00 T-piece 8.0 03/04/19 20:00 97.5 69 19 110/88 (95) 100 03/04/19 20:00 100 T-Piece 6.0 28 03/04/19 20:00 67 20 100 T-Piece 6.0 28 03/04/19 19:00 87 20 150/61 (90) 100 03/04/19 18:00 65 20 108/49 (68) 99 03/04/19 17:00 77 17 142/62 (88) 100 03/04/19 16:00 98.5 94 27 146/68 (94) 100 03/04/19 16:00 8.0 30 03/04/19 16:00 T-piece 8.0 03/04/19 16:00 74 I&O Intake and Output 03/04/19 03/05/19 18:59 06:59 Intake Total 985 ml 705 ml Output Total 70 ml Balance 985 ml 635 ml Free Water 510 ml 300 ml IV Total 55 ml 55 ml Tube Feeding 420 ml 350 ml Output Urine Total 70 ml # Voids 2 Dressing: other Wound: other Drains: other Cardiovascular: RSR Respiratory: decreased breath sounds Abdomen: soft, present bowel sounds Extremities: no cyanosis, other Laboratory Tests Test 03/05/19 03:50 03/05/19 08:25 White Blood Count 7.5 K/UL (4.8-10.8) 7.8 K/UL (4.8-10.8) Red Blood Count 2.17 M/UL (4.20-5.40) L 4.10 M/UL (4.20-5.40) L Hemoglobin 6.0 G/DL (12.0-16.0) 10.8 G/DL (12.0-16.0) #L Hematocrit 18.6 % (37.0-47.0) #L 34.8 % (37.0-47.0) #L Mean Corpuscular Volume 86 FL (80-99) 85 FL (80-99) Mean Corpuscular Hemoglobin 27.8 PG (27.0-31.0) 26.4 PG (27.0-31.0) L Mean Corpuscular Hemoglobin Concent 32.4 G/DL (32.0-36.0) 31.1 G/DL (32.0-36.0) L Red Cell Distribution Width 16.7 % (11.6-14.8) H 16.4 % (11.6-14.8) H Platelet Count 232 K/UL (150-450) 200 K/UL (150-450) Mean Platelet Volume 5.1 FL (6.5-10.1) L 6.5 FL (6.5-10.1) Neutrophils (%) (Auto) % (45.0-75.0) 46.7 % (45.0-75.0) Lymphocytes (%) (Auto) % (20.0-45.0) 41.4 % (20.0-45.0) Monocytes (%) (Auto) % (1.0-10.0) 6.6 % (1.0-10.0) Eosinophils (%) (Auto) % (0.0-3.0) 4.5 % (0.0-3.0) H Basophils (%) (Auto) % (0.0-2.0) 0.8 % (0.0-2.0) Differential Total Cells Counted 100 Neutrophils % (Manual) 56 % (45-75) Lymphocytes % (Manual) 30 % (20-45) Monocytes % (Manual) 6 % (1-10) Eosinophils % (Manual) 7 % (0-3) H Basophils % (Manual) 1 % (0-2) Band Neutrophils 0 % (0-8) Platelet Estimate Adequate Platelet Morphology Normal Hypochromasia 4+ Anisocytosis 1+ Spherocytes 2+ Sodium Level 143 MMOL/L (136-145) Potassium Level 4.1 MMOL/L (3.5-5.1) Chloride Level 107 MMOL/L (98-107) Carbon Dioxide Level 30 MMOL/L (21-32) Anion Gap 6 mmol/L (5-15) Blood Urea Nitrogen 24 mg/dL (7-18) H Creatinine 0.9 MG/DL (0.55-1.30) Estimat Glomerular Filtration Rate mL/min (>60) Glucose Level 86 MG/DL (74-106) Calcium Level 9.6 MG/DL (8.5-10.1) Total Bilirubin 0.4 MG/DL (0.2-1.0) Aspartate Amino Transf (AST/SGOT) 27 U/L (15-37) Alanine Aminotransferase (ALT/SGPT) 28 U/L (12-78) Alkaline Phosphatase 103 U/L (46-116) Total Protein 8.5 G/DL (6.4-8.2) H Albumin 3.0 G/DL (3.4-5.0) L Globulin 5.5 g/dL Albumin/Globulin Ratio 0.5 (1.0-2.7) L Plan Problems: (1) Sacral decubitus ulcer Assessment & Plan: This is a 83-year-old female with multiple medical committees that is currently admitted for medical care and management and identified to have multiple wounds requiring care. On admission patient noted to have a resolved sacral decubitus ulcer. Has had prior care and is well-healed at this time. Will ensure it does not open up again. Patient has a right ischial decubitus ulcer that is resolved. Scar intact and well formed. Will monitor to ensure it does not open up again. Patient has a left ischial decubitus ulcer that can be identified to be stage IV with palpable bone that has been resolving as noted by the periwound tissue and scar but open area approximately 1 cm x 1.5 cm few millimeters deep to bone identified. Unsure if this is been to be completely healed prior and has since opened or if has been healing at this level. No foul odor no drainage was unsure local wound care until healed Bilateral heels soft without signs of injury Resolving pressure injury L ischium(L)1.8cm x (W)1cm.Scattered biofilm at base of wound. Edges flat and adherent with surrounding hyperpigmentation. No odor or exudate noted. Sacrum is pale pink with surrounding hyperpigmentation. Hyperpigmentation R ischium with small sheared area centrally.No areas of erythema or exudate noted. Both heels are soft but blanchable. Skin Assessed under collar of trach and no evidence of skin breakdown noted. All wound Tx. are effective and continued as ordered. Pt ahs an APM/Belén mattress overlay and is being repositioned per protocols and per tolerance.No new skin concerns noted. Full thickness pressure injury L Ischium with small amt biofilm (L)1.8cm x (W) 1cm. Surrounding pink hyperpigmentation. No odor or exudate noted. [place] hyperpigmentation from previous wound noted to sacrum. Pt also noted to have Cat 2 Skin Tear dorsal L hand, L 5th metatarsal extending into palm of hand. 80% skin flap in situ.Both heels are dry firm and blanchable. No other skin concerns noted. Cleanse Blister Dorsal and palm of L hand with saline. Versatel One Silicone Contact Layer(Applied). Apply Silvasorb Gel. Wrap with Kerlix Gauze.Change every 7 days and prn. Apply Moisture Barrier to sacrum. Cover with Optifoam drsg. Change every 3 days and prn. Cleanse L ischial wound with saline. Apply Therahoney. Apply Moisture Barrier Paste periwound. Cover with Optifoam drsg. Change every 3 days and prn. Apply Cavilon Skin Barrier to both heels. Cover each heel with Optifoam drsg. Change every 7 days and prn. APM/BELÉN Mattress overlay. Reposition at least every 2hours or as tolerated. Off-load heels with pillow. Nutritional optimization We will monitor follow with recommendations cont with above upon d/c (2) Sepsis Assessment & Plan: IV abx as per ID trend labs improving wounds unlikely etiology likely respiratory imaging noted and okay abnormal lft's stable PICC on Abx in ICU for desaturation CXR with consolidation Evidence of left lower lobe pneumonia, also previously demonstrated Gastrostomy in good position Mild diastasis of the rectus abdominis musculature again demonstrated Retrosacral decubitus changes, better depicted on prior exam which included the pelvis Small hiatal hernia with evidence of trace gastroesophageal reflux (3) Feeding by G-tube Assessment & Plan: DAILY ESTIMATED NEEDS: Needs based on Pulmonary, wounds, bedbound/ 60kg adj 25-28 kcals/kg 8617-7948 total kcals 1.25-2 g protein/kg 75-120 g total protein 25-30 mL/kg 2680-5262 total fluid mLs NUTRITION DIAGNOSIS: * Swallowing difficulty R/T respiratory status as evidenced by pt on T-collar, now back the vent, PEG dep, TF changed to low rate at this time due to episodes of vomiting + residuals. * Increased kcal/prot needs R/T wound healing as evidenced by BL buttocks and sacral wound photos, refer to WC eval. (CURRENT TF:Glucerna 1.5 @35ml) ENTERAL NUTRITION RECOMMENDATIONS: VITAL AF 1.2 @ 55ml/hr x 24 hrs to provide 1320ml, 1584kcal, 99g prot, 1060ml free water - Once medically appropriate to resume TF, rec to initiate elemental and carb control formula of Vital 1.2 for possible improved tolerance - Initiate VITAL 1.2 @ 25ml/hr x 6hrs, advance 10ml q 4-6 hrs as tolerated to goal rate - Flush per MD/ HOB over 30 degrees ADDITIONAL RECOMMENDATIONS: 1) Re-calibrated bedscale wt for accurate CBW 2) Wound healing: Add Cristian 1pkt BID w/ improved Tf tolerace + MVI x1 daily 3) Monitor lytes, replete as needed (low Mg, K) 4) Monitor NPO status, ability to resume TF. -> held on and off due to vomiting since 02/02 5) SSI prn resume tube feeds (4) Chronic vegetative state Assessment & Plan: incontinence of urine and stool. can soil dressings. nurses doing great job with monitoring and changing prn (5) Leukocytosis Walter Madera Mar 05, 2019 15:39
--- NOTE | 2019-03-05 17:02 | NUR ---
NURSE NOTES: Received report from JEANNINE Warner. Replaced GILLESube by Dr. Vaughan and awaiting for KUB. Will follow up.
--- NOTE | 2019-03-05 18:02 | NUR ---
NURSE NOTES: BASHIR done. Will follow up.
--- NOTE | 2019-03-05 18:23 | Diagnostic Imaging Report ---
Indication: Post gastrostomy placement Technique: Supine view of the abdomen after injection of water-soluble contrast into gastrostomy Comparison: Radiograph of 02/03/2019 done without contrast injection Findings: Contrast opacifies the stomach. No contrast extravasation is demonstrated. The bowel gas pattern is unremarkable. Impression: Satisfactory position of gastrostomy tube
--- NOTE | 2019-03-05 19:14 | NUR ---
HAND-OFF: Report given to JEANNINE Kraus and JEANNINE Shields. Endorsed plan of care.
--- NOTE | 2019-03-05 19:20 | NUR ---
NURSE NOTES: Received patient from JEANNINE Ruiz. Will continue plan of care.
--- NOTE | 2019-03-05 20:00 | NUR ---
NURSE NOTES: Patient is obtunded. On trach Shiley 6xlt @ 30%. GTube flushed and patent; started feeding of Glucerna 1.2 @ 20ml/hr and will increase to goal as tolerated. Purewick in place and suctioning well. Vital signs are stable, will continue care.
[2019-03-05] MEDS: Dyna-Hex 2% Top Sol 2oz TOPIC SCH (20:12)
--- NOTE | 2019-03-05 22:00 | NUR ---
NURSE NOTES: Vital signs are stable, no change in condition. Will continue to monitor.
--- NOTE | 2019-03-05 22:46 | General Progress Note ---
Assessment/Plan Status: stable, progressing Assessment/Plan: Assessment - N/V, periodic - suspect due to gastroparesis - will hold off on G to J conversion per daughter request - Elevated Alk phos / LFT - CT negative - abd U/S negative - check hepatitis serologies - negative - Anemia with OB (-) stools - Resp failure, s/p Trach - dysphagia, s/p PEG --> s/p GT change - OBS - minor GT tract inflammation / infection - poor Px Recommendations - laxative PRN - antibiotic ointment to GT site PRN - continue TF - aspiration precautions - elevate HOB - PPI Subjective Allergies: Coded Allergies: CODEINE (Verified Allergy, Unknown, HIVES, 09/15/09) Subjective seen early am d/w RN GT torn --> TF held GT replaced at bedside with a 20 Fr GT replacement catheter Objective Last 24 Hour Vital Signs Date Time Temp Pulse Resp B/P (MAP) Pulse Ox O2 Delivery O2 Flow Rate FiO2 03/05/19 22:00 91 21 143/63 (89) 99 03/05/19 21:00 110 18 141/108 (119) 99 03/05/19 20:00 97.9 65 21 134/53 (80) 99 03/05/19 20:00 8.0 30 03/05/19 20:00 T-piece 8.0 03/05/19 19:37 100 T-Piece 6.0 28 03/05/19 19:36 74 20 100 T-Piece 6.0 28 71 20 99 03/05/19 19:00 76 25 144/61 (88) 99 03/05/19 18:00 70 22 136/66 (89) 99 03/05/19 17:00 66 21 106/46 (66) 97 03/05/19 16:00 T-piece 8.0 03/05/19 16:00 64 03/05/19 16:00 8.0 30 03/05/19 16:00 97.8 69 14 127/58 (81) 99 03/05/19 15:08 68 17 100 T-Piece 6.0 28 70 16 100 03/05/19 15:00 65 20 122/61 (81) 100 03/05/19 14:00 66 20 108/58 (75) 98 03/05/19 13:00 68 20 102/50 (67) 99 03/05/19 12:30 100 T-Piece 6.0 28 03/05/19 12:00 73 03/05/19 12:00 T-piece 8.0 03/05/19 12:00 97.4 76 21 154/46 (82) 97 03/05/19 12:00 8.0 30 03/05/19 11:00 67 21 146/50 (82) 100 03/05/19 10:56 69 19 100 T-Piece 6.0 28 67 26 100 03/05/19 10:38 68 19 100 T-Piece 6.0 28 67 20 97 03/05/19 10:00 73 20 156/59 (91) 100 03/05/19 09:00 97.3 66 16 147/63 (91) 100 03/05/19 08:00 69 03/05/19 08:00 T-piece 8.0 03/05/19 08:00 8.0 30 03/05/19 08:00 65 20 164/60 (94) 100 03/05/19 07:47 68 19 100 T-Piece 6.0 28 69 21 100 03/05/19 07:32 100 T-Piece 6.0 28 03/05/19 07:09 64 20 167/60 (95) 100 03/05/19 06:00 64 20 167/60 (95) 100 03/05/19 05:00 97.8 69 21 171/65 (100) 100 03/05/19 04:00 68 03/05/19 04:00 71 20 100 T-Piece 6.0 28 70 20 100 03/05/19 04:00 8.0 30 03/05/19 04:00 70 21 159/61 (93) 100 03/05/19 04:00 T-piece 8.0 03/05/19 03:00 69 21 160/58 (92) 100 03/05/19 02:00 67 21 158/57 (90) 100 03/05/19 01:30 100 T-Piece 6.0 28 03/05/19 01:00 62 21 141/59 (86) 100 03/05/19 01:00 62 21 141/59 (86) 100 03/05/19 00:00 63 19 100 03/05/19 00:00 98.4 63 19 147/62 (90) 100 03/05/19 00:00 8.0 30 03/05/19 00:00 T-piece 8.0 03/05/19 00:00 63 19 147/62 (90) 100 03/05/19 00:00 65 03/04/19 23:00 60 16 153/61 (91) 100 Intake and Output 03/04/19 03/05/19 19:00 07:00 Intake Total 985 ml 670 ml Output Total 70 ml Balance 985 ml 600 ml Free Water 510 ml 300 ml IV Total 55 ml 55 ml Tube Feeding 420 ml 315 ml Output Urine Total 70 ml # Voids 2 Laboratory Tests 03/05/19 03:50: White Blood Count 7.5, Red Blood Count 2.17L, Hemoglobin 6.0#*L, Hematocrit 18.6 #L, Mean Corpuscular Volume 86, Mean Corpuscular Hemoglobin 27.8, Mean Corpuscular Hemoglobin Concent 32.4, Red Cell Distribution Width 16.7H, Platelet Count 232, Mean Platelet Volume 5.1L, Neutrophils (%) (Auto) , Lymphocytes (%) (Auto) , Monocytes (%) (Auto) , Eosinophils (%) (Auto) , Basophils (%) (Auto) , Differential Total Cells Counted 100, Neutrophils % ( Manual) 56, Lymphocytes % (Manual) 30, Monocytes % (Manual) 6, Eosinophils % ( Manual) 7H, Basophils % (Manual) 1, Band Neutrophils 0, Platelet Estimate Adequate, Platelet Morphology Normal, Hypochromasia 4+, Anisocytosis 1+, Spherocytes 2+ 03/05/19 08:25: White Blood Count 7.8, Red Blood Count 4.10L, Hemoglobin 10.8#L, Hematocrit 34.8 #L, Mean Corpuscular Volume 85, Mean Corpuscular Hemoglobin 26.4L, Mean Corpuscular Hemoglobin Concent 31.1L, Red Cell Distribution Width 16.4H, Platelet Count 200, Mean Platelet Volume 6.5, Neutrophils (%) (Auto) 46.7, Lymphocytes (%) (Auto) 41.4, Monocytes (%) (Auto) 6.6, Eosinophils (%) (Auto) 4.5H, Basophils (%) (Auto) 0.8, Sodium Level 143, Potassium Level 4.1, Chloride Level 107, Carbon Dioxide Level 30, Anion Gap 6, Blood Urea Nitrogen 24H, Creatinine 0.9, Estimat Glomerular Filtration Rate , Glucose Level 86, Calcium Level 9.6, Total Bilirubin 0.4, Aspartate Amino Transf (AST/SGOT) 27, Alanine Aminotransferase (ALT/SGPT) 28, Alkaline Phosphatase 103, Total Protein 8.5H, Albumin 3.0L, Globulin 5.5, Albumin/Globulin Ratio 0.5L Height (Feet): 5 Height (Inches): 5.00 Weight (Pounds): 180 Objective Debilitated AA woman NCAT (+) trach coarse ronchi RR obese abd, (+) GT no edema Celio Vaughan MD Mar 05, 2019 22:46
[2019-03-06] VITALS (24 sets, daily range): BP systolic 111–154; BP diastolic 52–108
--- NOTE | 2019-03-06 | NUR ---
NURSE NOTES: Patient is stable. Bed bath and linen change provided. Turned and repositioned. Bed low, locked and alarm is on.
--- NOTE | 2019-03-06 02:00 | NUR ---
NURSE NOTES: Vital signs stable. No change in condition. TKO and lines are checked and are updated. Suctioning provided. Will continue to monitor.
[2019-03-06] MEDS: Albuterol/Ipratropium 3ml neb HHN PRN ×6 (02:43→22:46)
[2019-03-06] MEDS: Acetylcysteine 20% Soln 4ml HHN SCH ×6 (02:43→22:46)
--- NOTE | 2019-03-06 04:00 | NUR ---
NURSE NOTES: Patient is stable, no changes. Turned and repositioned. Frequent suction provided. Will continue to monitor.
--- NOTE | 2019-03-06 06:00 | Progress Note ---
DATE: 03/05/2019 CARDIOLOGY PROGRESS NOTE SUBJECTIVE: The patient remains with leaking G-tube. Blood pressure parameters are increasing. Monitored rhythm sinus. She still has congestion. OBJECTIVE: VITAL SIGNS: Blood pressure 167/60, pulse 64, and respiratory rate 20. LUNGS: Bilateral breath sounds. Rhonchi. CARDIAC: Regular rhythm and rate. Normal S1 and S2. ABDOMEN: Soft. G-tube site dressing in place. EXTREMITIES: Trace edema. LABORATORY DATA: White count 7.5 and hemoglobin 6. Sodium 143, potassium 4.1, bicarb 30, BUN 24, creatinine 0.9, albumin 3. IMPRESSION: 1. Severe anemia. 2. Leaking G-tube. 3. Rising blood pressure trend with underlying hypertensive heart disease. 4. Chronic diastolic congestive heart failure. 5. Respiratory failure with trach. PLAN: 1. Packed red blood cell transfusion. 2. Titrate antihypertensives. 3. Consider diuresis following transfusion. 4. with respiratory support. 5. Gastrointestinal to address leaking G-tube. 6. Remains high risk. Bg Hagen M.D. DR: GRACE JOB#: [id number] CC:
--- NOTE | 2019-03-06 06:00 | NUR ---
NURSE NOTES: Vital signs are stable. No change in condition with patient. GTube flushed and patient; feeding remains running Glucerna 1.5 @ 35ml/hr. Purewick is suctioning well and canister is changed. Suctioning provided and canister is also changed. Will continue to monitor.
--- NOTE | 2019-03-06 07:05 | NUR ---
HAND-OFF: Report given to JEANNINE Suggs.
--- NOTE | 2019-03-06 07:19 | NUR ---
NURSE NOTES: Late entry. Received report and PT from [place] RN & Nayana RN. PT obtunded, no tracking, VS on pvc monitor shows HR 91, BP 145/77; 02 sat 97 on t-piece Shiley 6 XLT @ 30%; oral care given during rounds, suctioned small amount of drainage from t-piece, G-tube feeding Glucerna 1.5 @ 35cc goal flushes well patent no residual noted flushed with 5cc water, PT connected to purewick to wall suction patent to collect urine 10cc urine noted in canister, PT has JOSY-PICC double lumens flushes with 10cc saline each, bilateral upper extremities contracted, bilateral lower extremities elevated, HOB raised for aspiration precautions, side rails padded for seizure precautions, code status of PT DNR w/ chemical code. PT has plans to be transferred but reported difficulty in finding placement. Will continue to monitor PT and follow through with plan of care.
--- NOTE | 2019-03-06 07:20 | NUR ---
NURSE NOTES: MD Clement made rounds, updates given 1 BM during shift boss, gtube feeding at goal, VS stable.
--- NOTE | 2019-03-06 07:38 | NUR ---
NURSE NOTES: MD Jerel made rounds, updates given on PT status, reported that PM shift nurse reported no abnormalities, PT stable over night, 1 BM, Gtube feeding at goal. Regards to transfer, MD still seeking placement.
--- NOTE | 2019-03-06 08:19 | NUR ---
NURSE NOTES: R-axillary temp 99.0; took top sheet off PT; frothy white sputum noted from oral and T-piece, suctioning done.
[2019-03-06] MEDS: levETIRAcetam 500mg/5ml Liquid GT SCH ×2 (08:36→20:21)
[2019-03-06] MEDS: Bacitracin Oint 15gm Tube TOPIC SCH ×3 (08:37→18:25)
[2019-03-06] MEDS: Heparin 5000 units/ml inj SUBQ SCH ×2 (08:38→20:24)
--- NOTE | 2019-03-06 08:48 | NUR ---
NURSE NOTES: G-tube dressing changed with new gauze, applied Bacitracin as prescribed, previous dressing is dry. No signs of bleeding from gtube site noted during change. Axillary temperature remains unchanged. Will continue to monitor.
--- NOTE | 2019-03-06 08:52 | Nephrology Progress Note ---
Assessment/Plan Problem List: (1) Acute renal failure (ARF) Assessment: Cr stable (2) Chronic respiratory failure (3) Anemia (4) Sepsis Assessment Acute renal failure Respiratory failure - Trach Low Mag- Low k , Low Na Anemia UTI / Sepsis Proteinuria / HypoAlbuminemia high Trigs Sz decubs bed bound DNR Plan repeat H&H is wnl bolus Albumin high K likely hemolysis K and Mag and Phos supplement as needed Hydrate Urine studies avoid Nephrotoxics mag K Phos supplements as needed monitor renal parameters Subjective ROS Limited/Unobtainable: Yes Objective Objective Last 24 Hour Vital Signs Date Time Temp Pulse Resp B/P (MAP) Pulse Ox O2 Delivery O2 Flow Rate FiO2 03/06/19 08:37 88 146/74 03/06/19 08:00 T-piece 8.0 03/06/19 08:00 88 03/06/19 08:00 99.0 97 26 146/74 (98) 95 03/06/19 08:00 8.0 30 03/06/19 07:00 87 22 145/77 (99) 98 03/06/19 06:51 98 T-Piece 6.0 28 03/06/19 06:51 96 20 98 T-Piece 6.0 28 98 22 97 03/06/19 06:00 84 24 145/65 (91) 98 03/06/19 05:00 97.7 82 18 154/69 (97) 98 03/06/19 04:00 T-piece 8.0 03/06/19 04:00 8.0 30 03/06/19 04:00 97.7 77 20 143/68 (93) 100 03/06/19 03:10 72 03/06/19 03:00 70 22 148/60 (89) 100 03/06/19 02:43 74 20 100 T-Piece 6.0 28 71 20 99 03/06/19 02:00 78 19 143/67 (92) 100 03/06/19 01:00 70 22 112/53 (72) 98 03/06/19 00:54 100 T-Piece 6.0 28 03/06/19 00:00 T-piece 8.0 03/06/19 00:00 97.8 67 20 131/58 (82) 100 03/05/19 23:49 70 20 100 T-Piece 6.0 28 69 20 99 03/05/19 23:18 66 03/05/19 23:00 71 22 145/56 (85) 100 03/05/19 22:00 91 21 143/63 (89) 99 03/05/19 21:00 110 18 141/108 (119) 99 03/05/19 20:00 97.9 65 21 134/53 (80) 99 03/05/19 20:00 8.0 30 03/05/19 20:00 T-piece 8.0 03/05/19 19:37 100 T-Piece 6.0 28 03/05/19 19:36 74 20 100 T-Piece 6.0 28 71 20 99 03/05/19 19:04 75 03/05/19 19:00 76 25 144/61 (88) 99 03/05/19 18:00 70 22 136/66 (89) 99 03/05/19 17:00 66 21 106/46 (66) 97 03/05/19 16:00 T-piece 8.0 03/05/19 16:00 64 03/05/19 16:00 8.0 30 03/05/19 16:00 97.8 69 14 127/58 (81) 99 03/05/19 15:08 68 17 100 T-Piece 6.0 28 70 16 100 03/05/19 15:00 65 20 122/61 (81) 100 03/05/19 14:00 66 20 108/58 (75) 98 03/05/19 13:00 68 20 102/50 (67) 99 03/05/19 12:30 100 T-Piece 6.0 28 03/05/19 12:00 73 03/05/19 12:00 T-piece 8.0 03/05/19 12:00 97.4 76 21 154/46 (82) 97 03/05/19 12:00 8.0 30 03/05/19 11:00 67 21 146/50 (82) 100 03/05/19 10:56 69 19 100 T-Piece 6.0 28 67 26 100 03/05/19 10:38 68 19 100 T-Piece 6.0 28 67 20 97 03/05/19 10:00 73 20 156/59 (91) 100 03/05/19 09:00 97.3 66 16 147/63 (91) 100 Intake and Output 03/05/19 03/06/19 19:00 07:00 Intake Total 0 ml 365 ml Output Total 495 ml 700 ml Balance -495 ml -335 ml Free Water 5 ml Tube Feeding 0 ml 360 ml Output Urine Total 495 ml 700 ml # Bowel Movements 1 Height (Feet): 5 Height (Inches): 5.00 Weight (Pounds): 180 General Appearance: no apparent distress Objective no change Eric Cortez MD Mar 06, 2019 08:52
--- NOTE | 2019-03-06 08:57 | General Progress Note ---
Assessment/Plan Problem List: (1) Seizure ICD Codes: R56.9 - Unspecified convulsions SNOMED: 76134159 (2) Anemia ICD Codes: D64.9 - Anemia, unspecified SNOMED: 332915155 Qualifiers: Qualified Codes: D64.9 - Anemia, unspecified (3) Sepsis ICD Codes: A41.9 - Sepsis, unspecified organism SNOMED: 27899710, 827283114 Qualifiers: Qualified Codes: A41.9 - Sepsis, unspecified organism (4) Respiratory failure with hypoxia ICD Codes: J96.91 - Respiratory failure, unspecified with hypoxia SNOMED: 82428342623798548 Qualifiers: Qualified Codes: J96.21 - Acute and chronic respiratory failure with hypoxia (5) HCAP (healthcare-associated pneumonia) ICD Codes: J18.9 - Pneumonia, unspecified organism SNOMED: 459369101, 736138109 (6) Sacral decubitus ulcer ICD Codes: L89.159 - Pressure ulcer of sacral region, unspecified stage SNOMED: 939630365 (7) HTN (hypertension) ICD Codes: I10 - Essential (primary) hypertension SNOMED: 14578229 (8) Chronic vegetative state ICD Codes: R40.3 - Persistent vegetative state SNOMED: 24365068 (9) Chronic respiratory failure ICD Codes: J96.10 - Chronic respiratory failure, unspecified whether with hypoxia or hypercapnia SNOMED: 14771084 (10) Limited mobility ICD Codes: Z74.09 - Other reduced mobility SNOMED: 5512830 Status: stable, progressing Assessment/Plan: vent prn as needed resp rx suctioning as needed gt feeds monitor for vomiting bowel regime monitor residuals sx rx monitor bp monitor cbc monitor for bleeding gi follow up regarding leaking gt Subjective ROS Limited/Unobtainable: No Constitutional: Reports: malaise, weakness HEENT: Reports: no symptoms Cardiovascular: Reports: no symptoms Respiratory: Reports: cough, sputum Gastrointestinal/Abdominal: Reports: difficulty swallowing Genitourinary: Reports: no symptoms Neurologic/Psychiatric: Reports: pre-existing deficit, seizure Endocrine: Reports: no symptoms Hematologic/Lymphatic: Reports: anemia Allergies: Coded Allergies: CODEINE (Verified Allergy, Unknown, HIVES, 09/15/09) All Systems: reviewed and negative except above Subjective no events, labs noted. s/p transfusion. no fever or chills. no congestion. no reports of bleeding Objective Last 24 Hour Vital Signs Date Time Temp Pulse Resp B/P (MAP) Pulse Ox O2 Delivery O2 Flow Rate FiO2 03/06/19 08:37 88 146/74 03/06/19 08:00 T-piece 8.0 03/06/19 08:00 88 03/06/19 08:00 99.0 97 26 146/74 (98) 95 03/06/19 08:00 8.0 30 03/06/19 07:00 87 22 145/77 (99) 98 03/06/19 06:51 98 T-Piece 6.0 28 03/06/19 06:51 96 20 98 T-Piece 6.0 28 98 22 97 03/06/19 06:00 84 24 145/65 (91) 98 03/06/19 05:00 97.7 82 18 154/69 (97) 98 03/06/19 04:00 T-piece 8.0 03/06/19 04:00 8.0 30 03/06/19 04:00 97.7 77 20 143/68 (93) 100 03/06/19 03:10 72 03/06/19 03:00 70 22 148/60 (89) 100 03/06/19 02:43 74 20 100 T-Piece 6.0 28 71 20 99 03/06/19 02:00 78 19 143/67 (92) 100 03/06/19 01:00 70 22 112/53 (72) 98 03/06/19 00:54 100 T-Piece 6.0 28 03/06/19 00:00 T-piece 8.0 03/06/19 00:00 97.8 67 20 131/58 (82) 100 03/05/19 23:49 70 20 100 T-Piece 6.0 28 69 20 99 03/05/19 23:18 66 03/05/19 23:00 71 22 145/56 (85) 100 03/05/19 22:00 91 21 143/63 (89) 99 03/05/19 21:00 110 18 141/108 (119) 99 03/05/19 20:00 97.9 65 21 134/53 (80) 99 03/05/19 20:00 8.0 30 03/05/19 20:00 T-piece 8.0 03/05/19 19:37 100 T-Piece 6.0 28 03/05/19 19:36 74 20 100 T-Piece 6.0 28 71 20 99 03/05/19 19:04 75 03/05/19 19:00 76 25 144/61 (88) 99 03/05/19 18:00 70 22 136/66 (89) 99 03/05/19 17:00 66 21 106/46 (66) 97 03/05/19 16:00 T-piece 8.0 03/05/19 16:00 64 03/05/19 16:00 8.0 30 03/05/19 16:00 97.8 69 14 127/58 (81) 99 03/05/19 15:08 68 17 100 T-Piece 6.0 28 70 16 100 03/05/19 15:00 65 20 122/61 (81) 100 03/05/19 14:00 66 20 108/58 (75) 98 03/05/19 13:00 68 20 102/50 (67) 99 03/05/19 12:30 100 T-Piece 6.0 28 03/05/19 12:00 73 03/05/19 12:00 T-piece 8.0 03/05/19 12:00 97.4 76 21 154/46 (82) 97 03/05/19 12:00 8.0 30 03/05/19 11:00 67 21 146/50 (82) 100 03/05/19 10:56 69 19 100 T-Piece 6.0 28 67 26 100 03/05/19 10:38 68 19 100 T-Piece 6.0 28 67 20 97 03/05/19 10:00 73 20 156/59 (91) 100 03/05/19 09:00 97.3 66 16 147/63 (91) 100 Intake and Output 03/05/19 03/06/19 19:00 07:00 Intake Total 0 ml 365 ml Output Total 495 ml 700 ml Balance -495 ml -335 ml Free Water 5 ml Tube Feeding 0 ml 360 ml Output Urine Total 495 ml 700 ml # Bowel Movements 1 Height (Feet): 5 Height (Inches): 5.00 Weight (Pounds): 180 Objective General Appearance: WD/WN, confused. on trach collar Neck: supple Cardiovascular: normal rate, regular rhythm Respiratory/Chest: chest wall non-tender, rhonchi - bilaterally(minimal) Abdomen: normal bowel sounds, non tender, soft, no organomegaly Edema: no edema noted Arm (L), no edema noted Arm (R), no edema noted Leg (L), no edema noted Leg (R), no edema noted Pedal (L), no edema noted Pedal (R), no edema noted Generalized Neurologic: disoriented, unresponsive, aphasia Irvin Beltrán MD Mar 06, 2019 08:57
--- NOTE | 2019-03-06 10:56 | NUR ---
DISCHARGE PLANNING [facility] HAS REPEATEDLY DECLINED TO ACCEPT THIS PATIENT PER DAUGHTER'S REQUEST YESTERDAY THIS LIVE SOURCE OPERATOR LEFT [facility] FOR DR AGNES CHEEMA T: [phone] TO REQUEST ASSISTANCE WILL PLACING PATIENT AT [facility]....NO RESPONSE OF YET [facility] [address] [place] [address] T: [phone] SPOKE WITH MEHDI ...THEY ARE WILLING TO ACCEPT [facility] [address] [place] Tl [phone] SPOKE WITH STANLEY...THEY ARE WILLING TO ACCEPT [facility] ~ DAUGHTER IS REFUSING [facility] ~ DECLINED TO ACCEPT [facility] ~ NO BEDS Addendum: 03/06/19 at 1124 by JODI TONY LVN LVN ATTEMPTED TO CONTACT DAUGHTER STEPHANIE NAIK T: [phone].....MAIL BOX FULL...UNABLE TO LEAVE MESSAGE Addendum: 03/06/19 at 1130 by JODI TONY LVN LVN CALLED AGAIN AND WAS ABLE TO LEAVE [facility]MM REGARDING NAMES AND PHONE NUMBERS OF THE ONLY 2 ACCEPTING SUB-ACUTES Addendum: 03/06/19 at 1719 by JODI TONY LVN LVN RECEIVED CALL BACK FROM PATIENT'S DAUGHTER STATING SHE WAS GOING TO TOUR THE 2 ABOVE FACILITIES TOMORROW AND ALSO GO TO [facility] TO SEE HOW SHE FEELS ABOUT HER MOTHER BEING PLACED THERE. DAUGHTER SAID SHE WOULD F/U WITH OUR ICY CHARGE NURSE LEON TOMORROW(SATURDAY) DAUGHTER MUST MAKE A DECISION ABOUT ONE OF THE FACILITIES OR FILE A MEDICARE APPEAL
--- NOTE | 2019-03-06 11:32 | NUR ---
RD ASSESSMENT & RECOMMENDATIONS SEE CARE ACTIVITY FOR COMPLETE ASSESSMENT DAILY ESTIMATED NEEDS: Needs based on Pulmonary, wounds, bedbound/ 60kg adj 25-28 kcals/kg 6366-6736 total kcals 1.25-2 g protein/kg 75-120 g total protein 25-30 mL/kg 0651-6090 total fluid mLs NUTRITION DIAGNOSIS: * Increased kcal/prot needs R/T wound healing as evidenced by BL buttocks and sacral wound photos, refer to WC eval. * Swallowing difficulty R/T respiratory status as evidenced by pt on T-collar, now back the vent, PEG dep, TF changed to low rate at this time due to episodes of vomiting + residuals. CURRENT TF: Glucerna 1.5 @ 35ml/hr x 24 hrs (per family request per RN) ENTERAL NUTRITION RECOMMENDATIONS: Glucerna 1.5 @ 45ml/hr x 24 hrs to provide 1080ml, 1620kcal, 89g prot, 820ml free water - W/ continued good TF tolerance, rec to increase goal rate to 45ml/hr x 24 hrs to meet 100% est kcal/prot needs - HOB over 30 degrees - Water flush of 170ml q 6 hrs * W/ continued uptrend in potassium (5.1-> 5.4-> now wnl), rec TF change to NEPRO. Goal of 35ml/hr x24 hrs to provide 840ml, 1512 kcal, 68g pro, 611ml free H2O. Rec to add PROSOURCE 1 pack daily (11g pro) to better meet pro needs. Flush per MD. ADDITIONAL RECOMMENDATIONS: 1) Re-calibrated bedscale wt for accurate CBW 2) Wound healing: Add Cristian 1pkt BID w/ continued good TF tolerace + MVI x1 daily 3) Monitor lytes, replete as needed 4) Monitor BGs closely, need for NISS 5) Monitor TF tolerance: rec to increase TF as above w/ continued good TF tolerance (pt on low rate of 35ml/hr per family request per RN)
[2019-03-06] MEDS: Metoclopramide 10mg/2ml Inj IVP PRN (11:40)
--- NOTE | 2019-03-06 11:44 | NUR ---
NURSE NOTES: PT t-piece drainage dark brown onto towel, oral suctioning done but no secretions noted, trach suctioning done no secretions noted. Agnes, RT called, oral and trach suctioning performed. G-tube feeding Glucerna 35cc stopped, PRN Reglan given. CN Tom made aware, will continue to monitor.
--- NOTE | 2019-03-06 12:20 | Infectious Diseases Prog Note ---
Assessment/Plan Assessment/Plan A 1. Acinetobacter, Enterobacter, pseudomonas & Klebsiella pneumonia treated 2. respiratory failure 3. hypertension 4. CVA 5. dementia 6. sacral decubitus ulcer 7. rectal VRE colonization 8. Anemia 9. Proteus UTI 10. Acute renal failure 11. Leukocytosis P 1.Observe off antibiotic 2. Frequent suctioning 3. Remove PICC line before discharge Subjective ROS Limited/Unobtainable: Yes Constitutional: Denies: fever Respiratory: Reports: productive cough Allergies: Coded Allergies: CODEINE (Verified Allergy, Unknown, HIVES, 09/15/09) Objective Vital Signs Last 24 Hour Vital Signs Date Time Temp Pulse Resp B/P (MAP) Pulse Ox O2 Delivery O2 Flow Rate FiO2 03/06/19 12:00 98.8 83 19 132/108 (116) 94 03/06/19 12:00 8.0 30 03/06/19 12:00 T-piece 8.0 03/06/19 11:00 75 25 133/66 (88) 98 03/06/19 10:43 80 18 100 T-Piece 6.0 28 79 20 100 03/06/19 10:00 80 18 111/62 (78) 96 03/06/19 09:00 86 23 142/64 (90) 96 03/06/19 08:37 88 146/74 03/06/19 08:00 T-piece 8.0 03/06/19 08:00 88 03/06/19 08:00 99.0 97 26 146/74 (98) 95 03/06/19 08:00 8.0 30 03/06/19 07:00 87 22 145/77 (99) 98 03/06/19 06:51 98 T-Piece 6.0 28 03/06/19 06:51 96 20 98 T-Piece 6.0 28 98 22 97 03/06/19 06:00 84 24 145/65 (91) 98 03/06/19 05:00 97.7 82 18 154/69 (97) 98 03/06/19 04:00 T-piece 8.0 03/06/19 04:00 8.0 30 03/06/19 04:00 97.7 77 20 143/68 (93) 100 03/06/19 03:10 72 03/06/19 03:00 70 22 148/60 (89) 100 03/06/19 02:43 74 20 100 T-Piece 6.0 28 71 20 99 03/06/19 02:00 78 19 143/67 (92) 100 03/06/19 01:00 70 22 112/53 (72) 98 03/06/19 00:54 100 T-Piece 6.0 28 03/06/19 00:00 T-piece 8.0 03/06/19 00:00 97.8 67 20 131/58 (82) 100 03/05/19 23:49 70 20 100 T-Piece 6.0 28 69 20 99 03/05/19 23:18 66 03/05/19 23:00 71 22 145/56 (85) 100 03/05/19 22:00 91 21 143/63 (89) 99 03/05/19 21:00 110 18 141/108 (119) 99 03/05/19 20:00 97.9 65 21 134/53 (80) 99 03/05/19 20:00 8.0 30 03/05/19 20:00 T-piece 8.0 03/05/19 19:37 100 T-Piece 6.0 28 03/05/19 19:36 74 20 100 T-Piece 6.0 28 71 20 99 03/05/19 19:04 75 03/05/19 19:00 76 25 144/61 (88) 99 03/05/19 18:00 70 22 136/66 (89) 99 03/05/19 17:00 66 21 106/46 (66) 97 03/05/19 16:00 T-piece 8.0 03/05/19 16:00 64 03/05/19 16:00 8.0 30 03/05/19 16:00 97.8 69 14 127/58 (81) 99 03/05/19 15:08 68 17 100 T-Piece 6.0 28 70 16 100 03/05/19 15:00 65 20 122/61 (81) 100 03/05/19 14:00 66 20 108/58 (75) 98 03/05/19 13:00 68 20 102/50 (67) 99 03/05/19 12:30 100 T-Piece 6.0 28 Height (Feet): 5 Height (Inches): 5.00 Weight (Pounds): 180 HEENT: status post trach Respiratory/Chest: crackles/rales, rhonchi - bilaterally, other - on T bar Cardiovascular: normal rate, other - R arm PICC line Abdomen: soft, non tender, other - Gt in place Extremities: no edema Neurologic/Psychiatric: aphasia Current Medications Medications (Trade) Dose Ordered Sig/Maicol Route PRN Reason Start Time Stop Time Status Last Admin Dose Admin Acetylcysteine (Mucomyst) 200 mg Q4HRT HHN 02/28/19 03:00 03/29/19 16:59 03/06/19 10:43 Albuterol/ Ipratropium (Albuterol/ Ipratropium) 3 ml Q4H PRN HHN Shortness of Breath 03/04/19 23:30 03/09/19 23:29 03/06/19 10:43 Atropine Sulfate (Atropine Opth Adriana) 1 drop TID SL 02/18/19 09:00 03/12/19 09:29 03/06/19 08:37 Bacitracin (Bacitracin 15gm tube) 1 applic THREE TIMES A DAY TOPIC 02/28/19 18:30 03/30/19 18:29 03/06/19 08:37 Chlorhexidine Gluconate (Cesilia-Hex 2%) 1 applic DAILY@1999 TOPIC 02/18/19 20:00 03/12/19 19:59 03/05/19 20:12 Famotidine (Pepcid) 20 mg BID GT 03/02/19 18:00 04/01/19 17:59 03/06/19 08:36 Heparin Sodium (Porcine) (Heparin 5000 units/ml) 5,000 units EVERY 12 HOURS SUBQ 02/18/19 09:00 03/16/19 23:14 03/06/19 08:38 Hydralazine HCl (Apresoline) 25 mg Q4H PRN GT SBP above 160 02/18/19 05:46 03/09/19 05:45 03/02/19 04:02 Levetiracetam (Keppra) 750 mg Q12HR GT 02/18/19 09:00 03/16/19 23:29 03/06/19 08:36 Metoclopramide HCl (Reglan) 10 mg Q6H PRN IVP Nausea & Vomiting 02/18/19 05:46 03/09/19 05:45 03/06/19 11:40 Metoprolol Tartrate (Lopressor) 25 mg Q12HR GT 03/06/19 09:00 04/05/19 08:59 03/06/19 08:37 Chauncey Liriano MD Mar 06, 2019 12:20
--- NOTE | 2019-03-06 13:22 | NUR ---
NURSE NOTES: Prescribed atropine and bacitracin given, no S/S of N/V; minimal oral secretions noted white frothy in color, trach secretions are white in color also. Will continue to monitor PT.
--- NOTE | 2019-03-06 15:13 | NUR ---
NURSE NOTES: PT had no episode of brown secretions, remains stable, caddie supervisor shows BP 152/52; HR 79, o2 sat @ 100%, no S/S of respiratory distress, no secretions noted from trach collar or oral secretions. Gtube feeding of Glucerna 1.5 restarted at 20cc, no residual noted on aspiration. Will continue to monitor PT.
--- NOTE | 2019-03-06 16:16 | NUR ---
NURSE NOTES: PT had BM, wound care done, changed dressings, total linen changed, repositioned HOB up. Will continue to monitor PT.
--- NOTE | 2019-03-06 17:42 | Pulmonolgy Critical Care Note ---
Critical Care - Asmt/Plan Assessment/Plan: Pulmonary CCM Progress Note Assessment/Plan Impression: Sepsis syndrome Pneumonia VDRF, Trach, G tube, Hypertension, Cardiac disease, Dementia, Previous CVA, Seizure disorder, Respiratory failure with hypoxia Anemia Sacral ulcer renal cyst pulmonary congestion Plan respiratory care to continue as is, TC as tolerated atropine neb therapy SNF meds as is off vent as able and has been off for several day Oxygen as needed Monitor labs daily changes noted and reviewed feeds as tolerated monitor albumin levels and provide protein and nutrition elevate head aspiration precautions Patient is a DNR. No CPR. ICU care reviewed medications/laboratory data/nursing notes/ICU care reviewed in detail note reviewed and edited care discussed with RN and RT ICU time spent 45 minutes Subjective Allergies: Coded Allergies: CODEINE (Verified Allergy, Unknown, HIVES, 09/15/09) Subjective respiratory care noted congestion- improved with atropine ICU care reviewed supportive care noted and reviewed RT care reviewed overnight care noted findings reviewed and discussed in detail with nursing and RT seen earlier this am Objective Vital Signs Noted Objective WDWN NAD contracted off vent reduced breath sounds bilaterally with some rhonchi overall; no wheeze [id number] without MRG NABS nontender no HSM no CC minimal nonfocal nonverbal trach and gt reviewed and edited Laboratory Tests Noted Critical Care - Objective Last 24 Hour Vital Signs Date Time Temp Pulse Resp B/P (MAP) Pulse Ox O2 Delivery O2 Flow Rate FiO2 03/06/19 16:00 T-piece 8.0 03/06/19 16:00 88 03/06/19 16:00 8.0 30 03/06/19 16:00 98.0 77 19 135/63 (87) 100 03/06/19 15:50 78 18 100 T-Piece 6.0 28 82 22 100 03/06/19 15:00 80 23 152/52 (85) 99 03/06/19 14:00 82 23 126/67 (86) 98 03/06/19 13:45 100 T-Piece 6.0 28 03/06/19 13:00 78 22 125/67 (86) 97 03/06/19 12:00 98.8 83 19 132/108 (116) 94 03/06/19 12:00 8.0 30 03/06/19 12:00 T-piece 8.0 03/06/19 12:00 95 03/06/19 11:00 75 25 133/66 (88) 98 03/06/19 10:43 80 18 100 T-Piece 6.0 28 79 20 100 03/06/19 10:00 80 18 111/62 (78) 96 03/06/19 09:00 86 23 142/64 (90) 96 03/06/19 08:37 88 146/74 03/06/19 08:00 T-piece 8.0 03/06/19 08:00 88 03/06/19 08:00 99.0 97 26 146/74 (98) 95 03/06/19 08:00 8.0 30 03/06/19 07:00 87 22 145/77 (99) 98 03/06/19 06:51 98 T-Piece 6.0 28 03/06/19 06:51 96 20 98 T-Piece 6.0 28 98 22 97 03/06/19 06:00 84 24 145/65 (91) 98 03/06/19 05:00 97.7 82 18 154/69 (97) 98 03/06/19 04:00 T-piece 8.0 03/06/19 04:00 8.0 30 03/06/19 04:00 97.7 77 20 143/68 (93) 100 03/06/19 03:10 72 03/06/19 03:00 70 22 148/60 (89) 100 03/06/19 02:43 74 20 100 T-Piece 6.0 28 71 20 99 03/06/19 02:00 78 19 143/67 (92) 100 03/06/19 01:00 70 22 112/53 (72) 98 03/06/19 00:54 100 T-Piece 6.0 28 03/06/19 00:00 T-piece 8.0 03/06/19 00:00 97.8 67 20 131/58 (82) 100 03/05/19 23:49 70 20 100 T-Piece 6.0 28 69 20 99 03/05/19 23:18 66 03/05/19 23:00 71 22 145/56 (85) 100 03/05/19 22:00 91 21 143/63 (89) 99 03/05/19 21:00 110 18 141/108 (119) 99 03/05/19 20:00 97.9 65 21 134/53 (80) 99 03/05/19 20:00 8.0 30 03/05/19 20:00 T-piece 8.0 03/05/19 19:37 100 T-Piece 6.0 28 03/05/19 19:36 74 20 100 T-Piece 6.0 28 71 20 99 03/05/19 19:04 75 03/05/19 19:00 76 25 144/61 (88) 99 03/05/19 18:00 70 22 136/66 (89) 99 Critical Care - Subjective ROS Limited/Unobtainable: No FI02: 30 Vent Support Mode: CPAP Vent Tidal Volume: 450 Sputum Amount: Small PEEP: 5.0 PIP: 19 Tube Feeding Amount: 20 I&O: Intake and Output 03/05/19 03/06/19 19:00 07:00 Intake Total 0 ml 365 ml Output Total 495 ml 700 ml Balance -495 ml -335 ml Free Water 5 ml Tube Feeding 0 ml 360 ml Output Urine Total 495 ml 700 ml # Bowel Movements 1 ET-Tube: 6.0 Bg Moffett MD Mar 06, 2019 17:42
--- NOTE | 2019-03-06 18:53 | General Progress Note ---
Assessment/Plan Status: stable, progressing Assessment/Plan: Assessment - N/V, periodic - suspect due to gastroparesis - will hold off on G to J conversion per daughter request - Elevated Alk phos / LFT - CT negative - abd U/S negative - check hepatitis serologies - negative - Anemia with OB (-) stools - Resp failure, s/p Trach - dysphagia, s/p PEG --> s/p GT change - OBS - minor GT tract inflammation / infection - poor Px Recommendations - laxative PRN - antibiotic ointment to GT site PRN - continue TF - aspiration precautions - elevate HOB - PPI Subjective Allergies: Coded Allergies: CODEINE (Verified Allergy, Unknown, HIVES, 09/15/09) Subjective seen early am d/w RN tolerating TF (+) BM Objective Last 24 Hour Vital Signs Date Time Temp Pulse Resp B/P (MAP) Pulse Ox O2 Delivery O2 Flow Rate FiO2 03/06/19 18:00 80 20 119/64 (82) 99 03/06/19 17:00 75 20 137/64 (88) 100 03/06/19 16:00 T-piece 8.0 03/06/19 16:00 88 03/06/19 16:00 8.0 30 03/06/19 16:00 98.0 77 19 135/63 (87) 100 03/06/19 15:50 78 18 100 T-Piece 6.0 28 82 22 100 03/06/19 15:00 80 23 152/52 (85) 99 03/06/19 14:00 82 23 126/67 (86) 98 03/06/19 13:45 100 T-Piece 6.0 28 03/06/19 13:00 78 22 125/67 (86) 97 03/06/19 12:00 98.8 83 19 132/108 (116) 94 03/06/19 12:00 8.0 30 03/06/19 12:00 T-piece 8.0 03/06/19 12:00 95 03/06/19 11:00 75 25 133/66 (88) 98 03/06/19 10:43 80 18 100 T-Piece 6.0 28 79 20 100 03/06/19 10:00 80 18 111/62 (78) 96 03/06/19 09:00 86 23 142/64 (90) 96 03/06/19 08:37 88 146/74 03/06/19 08:00 T-piece 8.0 03/06/19 08:00 88 03/06/19 08:00 99.0 97 26 146/74 (98) 95 03/06/19 08:00 8.0 30 03/06/19 07:00 87 22 145/77 (99) 98 03/06/19 06:51 98 T-Piece 6.0 28 03/06/19 06:51 96 20 98 T-Piece 6.0 28 98 22 97 03/06/19 06:00 84 24 145/65 (91) 98 03/06/19 05:00 97.7 82 18 154/69 (97) 98 03/06/19 04:00 T-piece 8.0 03/06/19 04:00 8.0 30 03/06/19 04:00 97.7 77 20 143/68 (93) 100 03/06/19 03:10 72 03/06/19 03:00 70 22 148/60 (89) 100 03/06/19 02:43 74 20 100 T-Piece 6.0 28 71 20 99 03/06/19 02:00 78 19 143/67 (92) 100 03/06/19 01:00 70 22 112/53 (72) 98 03/06/19 00:54 100 T-Piece 6.0 28 03/06/19 00:00 T-piece 8.0 03/06/19 00:00 97.8 67 20 131/58 (82) 100 03/05/19 23:49 70 20 100 T-Piece 6.0 28 69 20 99 03/05/19 23:18 66 03/05/19 23:00 71 22 145/56 (85) 100 03/05/19 22:00 91 21 143/63 (89) 99 03/05/19 21:00 110 18 141/108 (119) 99 03/05/19 20:00 97.9 65 21 134/53 (80) 99 03/05/19 20:00 8.0 30 03/05/19 20:00 T-piece 8.0 03/05/19 19:37 100 T-Piece 6.0 28 03/05/19 19:36 74 20 100 T-Piece 6.0 28 71 20 99 03/05/19 19:04 75 12/5/19 19:00 76 25 144/61 (88) 99 Intake and Output 03/05/19 03/06/19 19:00 07:00 Intake Total 0 ml 365 ml Output Total 495 ml 700 ml Balance -495 ml -335 ml Free Water 5 ml Tube Feeding 0 ml 360 ml Output Urine Total 495 ml 700 ml # Bowel Movements 1 Height (Feet): 5 Height (Inches): 5.00 Weight (Pounds): 180 Objective Debilitated AA woman NCAT (+) trach coarse ronchi RR obese abd, (+) GT no edema Celio Vaughan MD Mar 06, 2019 18:53
--- NOTE | 2019-03-06 19:35 | NUR ---
NURSE NOTES: Received report from Ifeanyi PAEZ. PT obtunded, no tracking, 02 sat 100% on t-piece Shiley 6 XLT @ 30%; oral care given during rounds, suctioned small amount of drainage from t-piece, G-tube feeding Glucerna 1.5 @ 35cc goal non residual. HOB elevated. Patient connected to Purewick PT has JOSY-PICC double lumens no s/s of infiltration. Bilateral upper extremities contracted, bilateral lower extremities elevated, HOB raised for aspiration precautions, side rails padded for seizure precautions, code status of PT DNR w/ chemical code. Contact isolation and seizure precaution maintained and observed. Bed alarm on. bed locked and in low position. Call light within easy reach. Dressing intact on sacral and buttock Pressure sore. On P200 mattress for wound management. will continue plan of care.
--- NOTE | 2019-03-06 19:46 | NUR ---
HAND-OFF: Report and PT given to JEANNINE Salomon.
[2019-03-06] MEDS: Dyna-Hex 2% Top Sol 2oz TOPIC SCH (20:21)
--- NOTE | 2019-03-06 21:35 | NUR ---
NURSE NOTES: Turned and repositioned patient. kept clean and dry. oral care and suctioned provided. HOB elevated. no s/s of acute distress noted frequent visual checks continued.
--- NOTE | 2019-03-06 22:35 | Surgery Progress Note ---
Surgery Progress Note Subjective Symptoms: improved Objective Last 24 Hour Vital Signs Date Time Temp Pulse Resp B/P (MAP) Pulse Ox O2 Delivery O2 Flow Rate FiO2 03/06/19 20:22 95 133/75 03/06/19 20:11 100 T-Piece 6.0 28 03/06/19 19:59 90 18 100 T-Piece 6.0 28 88 22 100 03/06/19 18:00 80 20 119/64 (82) 99 03/06/19 17:00 75 20 137/64 (88) 100 03/06/19 16:00 T-piece 8.0 03/06/19 16:00 88 03/06/19 16:00 8.0 30 03/06/19 16:00 98.0 77 19 135/63 (87) 100 03/06/19 15:50 78 18 100 T-Piece 6.0 28 82 22 100 03/06/19 15:00 80 23 152/52 (85) 99 03/06/19 14:00 82 23 126/67 (86) 98 03/06/19 13:45 100 T-Piece 6.0 28 03/06/19 13:00 78 22 125/67 (86) 97 03/06/19 12:00 98.8 83 19 132/108 (116) 94 03/06/19 12:00 8.0 30 03/06/19 12:00 T-piece 8.0 03/06/19 12:00 95 03/06/19 11:00 75 25 133/66 (88) 98 03/06/19 10:43 80 18 100 T-Piece 6.0 28 79 20 100 03/06/19 10:00 80 18 111/62 (78) 96 03/06/19 09:00 86 23 142/64 (90) 96 03/06/19 08:37 88 146/74 03/06/19 08:00 T-piece 8.0 03/06/19 08:00 88 03/06/19 08:00 99.0 97 26 146/74 (98) 95 03/06/19 08:00 8.0 30 03/06/19 07:00 87 22 145/77 (99) 98 03/06/19 06:51 98 T-Piece 6.0 28 03/06/19 06:51 96 20 98 T-Piece 6.0 28 98 22 97 03/06/19 06:00 84 24 145/65 (91) 98 03/06/19 05:00 97.7 82 18 154/69 (97) 98 03/06/19 04:00 T-piece 8.0 03/06/19 04:00 8.0 30 03/06/19 04:00 97.7 77 20 143/68 (93) 100 03/06/19 03:10 72 03/06/19 03:00 70 22 148/60 (89) 100 03/06/19 02:43 74 20 100 T-Piece 6.0 28 71 20 99 03/06/19 02:00 78 19 143/67 (92) 100 03/06/19 01:00 70 22 112/53 (72) 98 03/06/19 00:54 100 T-Piece 6.0 28 03/06/19 00:00 T-piece 8.0 03/06/19 00:00 97.8 67 20 131/58 (82) 100 03/05/19 23:49 70 20 100 T-Piece 6.0 28 69 20 99 03/05/19 23:18 66 03/05/19 23:00 71 22 145/56 (85) 100 I&O Intake and Output 03/05/19 03/06/19 18:59 06:59 Intake Total 0 ml 325 ml Output Total 445 ml 700 ml Balance -445 ml -375 ml Tube Feeding 0 ml 325 ml Output Urine Total 445 ml 700 ml # Bowel Movements 1 Dressing: other Wound: other Cardiovascular: RSR Respiratory: clear, decreased breath sounds Abdomen: soft, present bowel sounds Extremities: no cyanosis Plan Problems: (1) Sacral decubitus ulcer Assessment & Plan: This is a 83-year-old female with multiple medical committees that is currently admitted for medical care and management and identified to have multiple wounds requiring care. On admission patient noted to have a resolved sacral decubitus ulcer. Has had prior care and is well-healed at this time. Will ensure it does not open up again. Patient has a right ischial decubitus ulcer that is resolved. Scar intact and well formed. Will monitor to ensure it does not open up again. Patient has a left ischial decubitus ulcer that can be identified to be stage IV with palpable bone that has been resolving as noted by the periwound tissue and scar but open area approximately 1 cm x 1.5 cm few millimeters deep to bone identified. Unsure if this is been to be completely healed prior and has since opened or if has been healing at this level. No foul odor no drainage was unsure local wound care until healed Bilateral heels soft without signs of injury Resolving pressure injury L ischium(L)1.8cm x (W)1cm.Scattered biofilm at base of wound. Edges flat and adherent with surrounding hyperpigmentation. No odor or exudate noted. Sacrum is pale pink with surrounding hyperpigmentation. Hyperpigmentation R ischium with small sheared area centrally.No areas of erythema or exudate noted. Both heels are soft but blanchable. Skin Assessed under collar of trach and no evidence of skin breakdown noted. All wound Tx. are effective and continued as ordered. Pt ahs an APM/Belén mattress overlay and is being repositioned per protocols and per tolerance.No new skin concerns noted. Full thickness pressure injury L Ischium with small amt biofilm (L)1.8cm x (W) 1cm. Surrounding pink hyperpigmentation. No odor or exudate noted. Higgins hyperpigmentation from previous wound noted to sacrum. Pt also noted to have Cat 2 Skin Tear dorsal L hand, L 5th metatarsal extending into palm of hand. 80% skin flap in situ.Both heels are dry firm and blanchable. No other skin concerns noted. Cleanse Blister Dorsal and palm of L hand with saline. Versatel One Silicone Contact Layer(Applied). Apply Silvasorb Gel. Wrap with Kerlix Gauze.Change every 7 days and prn. Apply Moisture Barrier to sacrum. Cover with Optifoam drsg. Change every 3 days and prn. Cleanse L ischial wound with saline. Apply Therahoney. Apply Moisture Barrier Paste periwound. Cover with Optifoam drsg. Change every 3 days and prn. Apply Cavilon Skin Barrier to both heels. Cover each heel with Optifoam drsg. Change every 7 days and prn. APM/BELÉN Mattress overlay. Reposition at least every 2hours or as tolerated. Off-load heels with pillow. Nutritional optimization We will monitor follow with recommendations cont with above upon d/c (2) Sepsis Assessment & Plan: IV abx as per ID trend labs improving wounds unlikely etiology likely respiratory imaging noted and okay abnormal lft's stable PICC on Abx in ICU for desaturation CXR with consolidation Evidence of left lower lobe pneumonia, also previously demonstrated Gastrostomy in good position Mild diastasis of the rectus abdominis musculature again demonstrated Retrosacral decubitus changes, better depicted on prior exam which included the pelvis Small hiatal hernia with evidence of trace gastroesophageal reflux (3) Feeding by G-tube Assessment & Plan: DAILY ESTIMATED NEEDS: Needs based on Pulmonary, wounds, bedbound/ 60kg adj 25-28 kcals/kg 9615-6957 total kcals 1.25-2 g protein/kg 75-120 g total protein 25-30 mL/kg 2643-0573 total fluid mLs NUTRITION DIAGNOSIS: * Swallowing difficulty R/T respiratory status as evidenced by pt on T-collar, now back the vent, PEG dep, TF changed to low rate at this time due to episodes of vomiting + residuals. * Increased kcal/prot needs R/T wound healing as evidenced by BL buttocks and sacral wound photos, refer to eval. (CURRENT TF:Glucerna 1.5 @35ml) ENTERAL NUTRITION RECOMMENDATIONS: VITAL AF 1.2 @ 55ml/hr x 24 hrs to provide 1320ml, 1584kcal, 99g prot, 1060ml free water - Once medically appropriate to resume TF, rec to initiate elemental and carb control formula of Vital 1.2 for possible improved tolerance - Initiate VITAL 1.2 @ 25ml/hr x 6hrs, advance 10ml q 4-6 hrs as tolerated to goal rate - Flush per MD/ HOB over 30 degrees ADDITIONAL RECOMMENDATIONS: 1) Re-calibrated bedscale wt for accurate CBW 2) Wound healing: Add Cristian 1pkt BID w/ improved Tf tolerace + MVI x1 daily 3) Monitor lytes, replete as needed (low Mg, K) 4) Monitor NPO status, ability to resume TF. -> held on and off due to vomiting since 02/02 5) SSI prn resume tube feeds (4) Chronic vegetative state Assessment & Plan: incontinence of urine and stool. can soil dressings. nurses doing great job with monitoring and changing prn (5) Leukocytosis Walter Madera Mar 06, 2019 22:35
--- NOTE | 2019-03-06 23:35 | NUR ---
NURSE NOTES: Patient in bed resting. no moaning no facial grimaces. No s/s of cardiac and respiratory distress. no fever. no n/v. turned nad repositioned. bilateral upper and lower extremities elevated with pillows.
[2019-03-07] VITALS (24 sets, daily range): BP systolic 98–160; BP diastolic 48–78
--- NOTE | 2019-03-07 00:35 | NUR ---
NURSE NOTES: Patient in bed sleeping comfortably. no s/s of acute distress noted. no fever. no s/s of seizure. no moaning no facial grimaces. oral care and suctioned provided. HOB elevated. Turned and repositioned. Purewick draining connected to low intermittent suctioned. no BM. Right upper arm PICC line double lumen intact able to flush. Dressing dry and intact. will continue to monitor patient.
[2019-03-07] MEDS: Metoclopramide 10mg/2ml Inj IVP PRN (02:45)
--- NOTE | 2019-03-07 02:47 | NUR ---
NURSE NOTES: Noted patient with secretions on towel it looks like the gtfeeding checked Gt no residual.Held GTF for now, will inform MD in am. HOB elevated. Reglan PRN IVP given. oral crare n ad suctioned patient. will continue to monitor patient.
[2019-03-07] MEDS: Acetylcysteine 20% Soln 4ml HHN SCH ×6 (03:00→23:10)
--- NOTE | 2019-03-07 03:30 | Progress Note ---
DATE: 03/06/2019 CARDIOLOGY PROGRESS NOTE SUBJECTIVE: The patient remains on T-tube with respiratory treatments around the clock. Noncommunicative. Monitored rhythm sinus. T-max 99.1, blood pressure 146/74, pulse 97, and respiratory rate 26. She was transfused with packed red blood cells yesterday for hemoglobin of 6. No signs of bleeding noted today. PHYSICAL EXAMINATION: LUNGS: Bilateral breath sounds and rhonchi. CARDIAC: Regular rhythm and rate. Normal S1 and S2. ABDOMEN: Soft. G-tube intact. EXTREMITIES: No edema. LABORATORY DATA: Abdominal x-ray was obtained revealing satisfactory G-tube positioning. White count was 7.8 and hemoglobin 10.8 post transfusion. Chemistry panel notable for BUN 24, creatinine 0.9, and potassium 4.1. Albumin 3. IMPRESSION: 1. Status post packed red blood cell transfusions for significant anemia. 2. Respiratory failure. 3. Chronic diastolic congestive heart failure. 4. Moderate protein-calorie malnutrition, improving. 5. Recovered sepsis with shock. PLAN: 1. Plan of care in place. 2. Continue to monitor volume status and adjust cardiovascular regimen accordingly. We are avoiding tighter blood pressure control at this time. Observing closely for signs of blood loss. Bg Hagen M.D. DR: CHARLEE JOB#: [id number] CC:
--- NOTE | 2019-03-07 04:30 | NUR ---
NURSE NOTES: Bed bath given tolerated well. HOB elevated. suctioned orally and via ETT with moderate whitish frothy secretions. oral care provided. frequent visual checks continued. no fever. Temp 98.6 axillary. comfort measure provided. will continue to monitor patient.
--- NOTE | 2019-03-07 05:45 | NUR ---
NURSE NOTES: Temp 99.2 axillary, cooling measure provided Temp 98.6 axillary.
[2019-03-07] MEDS: Albuterol/Ipratropium 3ml neb HHN PRN ×5 (06:59→23:09)
--- NOTE | 2019-03-07 07:42 | NUR ---
HAND-OFF: Report given to Ifeanyi PAEZ. Dr. Beltrán came and made aware of patient with episode of regurgitation Reglan given and held feeding. per MD he will increase the Atropin drops. Ifeanyi PAEZ aware.
--- NOTE | 2019-03-07 07:43 | NUR ---
NURSE NOTES: Late entry. Received report from JEANNINE Salomon; PT received obtunded, responsive to light pain, no tracking with eyes; VS on cementer shows HR 84; BP 149/74; RR 22; o2 sat @ 100%; received on T-piece shiley 6XLT @ 30%; has PRN trach to vent orders of AC 14; TV 450; 30%; peep 5, received with Gtube feeding off due to regurgitation during PM shift, reported Reglan was given; Jerel VARGAS made aware during shift change/bedside report. PT connected to wall suctioned purewick, on p200 mattress; side rails x 2 padded for seizure precautions. T-piece during shift change/bedside report has thick frothy sputum, frequent suctioning will be required. Oral suctioning also given during rounds. mouth care performed. PT JOSY PICC w/ double lumens remains infusing TKO, flushes well, patent. Received PT with cooling measures in place. No updates on discharge placement given by MD Jerel; will continue to monitor PT.
--- NOTE | 2019-03-07 07:47 | General Progress Note ---
Assessment/Plan Problem List: (1) Seizure ICD Codes: R56.9 - Unspecified convulsions SNOMED: 26955790 (2) Anemia ICD Codes: D64.9 - Anemia, unspecified SNOMED: 541440782 Qualifiers: Qualified Codes: D64.9 - Anemia, unspecified (3) Sepsis ICD Codes: A41.9 - Sepsis, unspecified organism SNOMED: 40033858, 176965701 Qualifiers: Qualified Codes: A41.9 - Sepsis, unspecified organism (4) Respiratory failure with hypoxia ICD Codes: J96.91 - Respiratory failure, unspecified with hypoxia SNOMED: 05779859166132035 Qualifiers: Qualified Codes: J96.21 - Acute and chronic respiratory failure with hypoxia (5) HCAP (healthcare-associated pneumonia) ICD Codes: J18.9 - Pneumonia, unspecified organism SNOMED: 916025568, 344969509 (6) Sacral decubitus ulcer ICD Codes: L89.159 - Pressure ulcer of sacral region, unspecified stage SNOMED: 830483743 (7) HTN (hypertension) ICD Codes: I10 - Essential (primary) hypertension SNOMED: 86646882 (8) Chronic vegetative state ICD Codes: R40.3 - Persistent vegetative state SNOMED: 57938360 (9) Chronic respiratory failure ICD Codes: J96.10 - Chronic respiratory failure, unspecified whether with hypoxia or hypercapnia SNOMED: 69520627 (10) Limited mobility ICD Codes: Z74.09 - Other reduced mobility SNOMED: 4190568 Status: stable, progressing Assessment/Plan: vent prn as needed resp rx suctioning as needed gt feeds with caution- hold for vomiting bowel regime monitor residuals sx rx monitor bp monitor cbc monitor for bleeding gi follow up regarding leaking gt check cxr and kub increase atropine drops Subjective ROS Limited/Unobtainable: No Constitutional: Reports: malaise, weakness HEENT: Reports: no symptoms Cardiovascular: Reports: no symptoms Respiratory: Reports: cough, shortness of breath, sputum Gastrointestinal/Abdominal: Reports: vomiting Genitourinary: Reports: no symptoms Neurologic/Psychiatric: Reports: pre-existing deficit, seizure Endocrine: Reports: no symptoms Hematologic/Lymphatic: Reports: no symptoms Allergies: Coded Allergies: CODEINE (Verified Allergy, Unknown, HIVES, 09/15/09) All Systems: reviewed and negative except above Subjective vomiting and congested. noted to vomit feedings yesterday last night. no residuals. +bowel movements. more secretions- clear and brown Objective Last 24 Hour Vital Signs Date Time Temp Pulse Resp B/P (MAP) Pulse Ox O2 Delivery O2 Flow Rate FiO2 03/07/19 07:00 100 T-Piece 6.0 28 03/07/19 07:00 83 27 152/65 (94) 99 03/07/19 07:00 80 26 100 T-Piece 6.0 28 78 27 100 03/07/19 06:00 98.6 78 25 147/66 (93) 100 03/07/19 05:00 81 30 144/70 (94) 100 03/07/19 04:00 T-piece 8.0 03/07/19 04:00 75 03/07/19 04:00 98.8 84 25 136/66 (89) 99 03/07/19 04:00 8.0 30 03/07/19 03:00 92 17 126/67 (86) 99 03/07/19 02:00 92 14 142/62 (88) 99 03/07/19 01:18 99 T-Piece 6.0 28 03/07/19 01:00 79 22 106/60 (75) 99 03/07/19 00:00 T-piece 8.0 03/07/19 00:00 98.8 82 26 133/57 (82) 99 03/07/19 00:00 81 03/06/19 23:00 89 19 140/66 (90) 100 03/06/19 22:47 93 18 100 T-Piece 6.0 28 86 23 98 03/06/19 22:00 87 22 124/61 (82) 98 03/06/19 21:00 91 19 136/64 (88) 99 03/06/19 20:22 95 133/75 03/06/19 20:11 100 T-Piece 6.0 28 03/06/19 20:00 T-piece 8.0 03/06/19 20:00 8.0 30 03/06/19 20:00 98.9 105 19 133/73 (93) 99 03/06/19 20:00 79 03/06/19 19:59 90 18 100 T-Piece 6.0 28 88 22 100 03/06/19 19:00 89 20 124/70 (88) 100 03/06/19 18:00 80 20 119/64 (82) 99 03/06/19 17:00 75 20 137/64 (88) 100 03/06/19 16:00 T-piece 8.0 03/06/19 16:00 88 03/06/19 16:00 8.0 30 03/06/19 16:00 98.0 77 19 135/63 (87) 100 03/06/19 15:50 78 18 100 T-Piece 6.0 28 82 22 100 03/06/19 15:00 80 23 152/52 (85) 99 03/06/19 14:00 82 23 126/67 (86) 98 03/06/19 13:45 100 T-Piece 6.0 28 03/06/19 13:00 78 22 125/67 (86) 97 03/06/19 12:00 98.8 83 19 132/108 (116) 94 03/06/19 12:00 8.0 30 03/06/19 12:00 T-piece 8.0 03/06/19 12:00 95 03/06/19 11:00 75 25 133/66 (88) 98 03/06/19 10:43 80 18 100 T-Piece 6.0 28 79 20 100 03/06/19 10:00 80 18 111/62 (78) 96 03/06/19 09:00 86 23 142/64 (90) 96 03/06/19 08:37 88 146/74 03/06/19 08:00 T-piece 8.0 03/06/19 08:00 88 03/06/19 08:00 99.0 97 26 146/74 (98) 95 03/06/19 08:00 8.0 30 Intake and Output 03/06/19 03/07/19 19:00 07:00 Intake Total 260 ml 305 ml Output Total 50 ml 300 ml Balance 210 ml 5 ml Free Water 100 ml Tube Feeding 240 ml 175 ml Other 20 ml 30 ml Output Urine Total 50 ml 300 ml # Bowel Movements 2 2 Height (Feet): 5 Height (Inches): 5.00 Weight (Pounds): 180 Objective General Appearance: WD/WN, confused. on trach collar Neck: supple Cardiovascular: normal rate, regular rhythm Respiratory/Chest: chest wall non-tender, rhonchi - bilaterally(minimal) Abdomen: normal bowel sounds, non tender, soft, no organomegaly Edema: no edema noted Arm (L), no edema noted Arm (R), no edema noted Leg (L), no edema noted Leg (R), no edema noted Pedal (L), no edema noted Pedal (R), no edema noted Generalized Neurologic: disoriented, unresponsive, aphasia Irvin Beltrán MD Mar 07, 2019 07:47
--- NOTE | 2019-03-07 08:42 | Nephrology Progress Note ---
Assessment/Plan Problem List: (1) Acute renal failure (ARF) Assessment: Cr stable (2) Chronic respiratory failure (3) Anemia (4) Sepsis Assessment Acute renal failure Respiratory failure - Trach Low Mag- Low k , Low Na Anemia UTI / Sepsis Proteinuria / HypoAlbuminemia high Trigs Sz decubs bed bound DNR Plan no labs today bolus Albumin as needed K and Mag and Phos supplement as needed Hydrate as needed Urine studies avoid Nephrotoxics mag K Phos supplements as needed monitor renal parameters Subjective ROS Limited/Unobtainable: Yes Objective Objective Last 24 Hour Vital Signs Date Time Temp Pulse Resp B/P (MAP) Pulse Ox O2 Delivery O2 Flow Rate FiO2 03/07/19 08:00 T-piece 8.0 03/07/19 08:00 98.5 78 25 139/78 (98) 98 03/07/19 08:00 8.0 30 03/07/19 07:00 100 T-Piece 6.0 28 03/07/19 07:00 83 27 152/65 (94) 99 03/07/19 07:00 80 26 100 T-Piece 6.0 28 78 27 100 03/07/19 06:00 98.6 78 25 147/66 (93) 100 03/07/19 05:00 81 30 144/70 (94) 100 03/07/19 04:00 T-piece 8.0 03/07/19 04:00 75 03/07/19 04:00 98.8 84 25 136/66 (89) 99 03/07/19 04:00 8.0 30 03/07/19 03:00 92 17 126/67 (86) 99 03/07/19 02:00 92 14 142/62 (88) 99 03/07/19 01:18 99 T-Piece 6.0 28 03/07/19 01:00 79 22 106/60 (75) 99 03/07/19 00:00 T-piece 8.0 03/07/19 00:00 98.8 82 26 133/57 (82) 99 03/07/19 00:00 81 03/06/19 23:00 89 19 140/66 (90) 100 03/06/19 22:47 93 18 100 T-Piece 6.0 28 86 23 98 03/06/19 22:00 87 22 124/61 (82) 98 03/06/19 21:00 91 19 136/64 (88) 99 03/06/19 20:22 95 133/75 03/06/19 20:11 100 T-Piece 6.0 28 03/06/19 20:00 T-piece 8.0 03/06/19 20:00 8.0 30 03/06/19 20:00 98.9 105 19 133/73 (93) 99 03/06/19 20:00 79 03/06/19 19:59 90 18 100 T-Piece 6.0 28 88 22 100 03/06/19 19:00 89 20 124/70 (88) 100 03/06/19 18:00 80 20 119/64 (82) 99 03/06/19 17:00 75 20 137/64 (88) 100 03/06/19 16:00 T-piece 8.0 03/06/19 16:00 88 03/06/19 16:00 8.0 30 03/06/19 16:00 98.0 77 19 135/63 (87) 100 03/06/19 15:50 78 18 100 T-Piece 6.0 28 82 22 100 03/06/19 15:00 80 23 152/52 (85) 99 03/06/19 14:00 82 23 126/67 (86) 98 03/06/19 13:45 100 T-Piece 6.0 28 03/06/19 13:00 78 22 125/67 (86) 97 03/06/19 12:00 98.8 83 19 132/108 (116) 94 03/06/19 12:00 8.0 30 03/06/19 12:00 T-piece 8.0 03/06/19 12:00 95 03/06/19 11:00 75 25 133/66 (88) 98 03/06/19 10:43 80 18 100 T-Piece 6.0 28 79 20 100 03/06/19 10:00 80 18 111/62 (78) 96 03/06/19 09:00 86 23 142/64 (90) 96 Intake and Output 03/06/19 03/07/19 19:00 07:00 Intake Total 260 ml 305 ml Output Total 50 ml 300 ml Balance 210 ml 5 ml Free Water 100 ml Tube Feeding 240 ml 175 ml Other 20 ml 30 ml Output Urine Total 50 ml 300 ml # Bowel Movements 2 2 Height (Feet): 5 Height (Inches): 5.00 Weight (Pounds): 180 General Appearance: no apparent distress EENT: other - trach Cardiovascular: normal rate Respiratory/Chest: decreased breath sounds Abdomen: distended Objective no change Eric Cortez MD Mar 07, 2019 08:42
--- NOTE | 2019-03-07 08:53 | Diagnostic Imaging Report ---
EXAM: XR Abdomen, 2 Views CLINICAL HISTORY: COUGH TECHNIQUE: Frontal view of the abdomen/pelvis with upright view of the abdomen. COMPARISON: 03/05/19. FINDINGS: Intraperitoneal space: No free air. Gastrointestinal tract: Enterostomy tube again noted. Contrast within the colon. No dilation. Bones/joints: Unremarkable. IMPRESSION: No clear bowel obstruction. No free air.
--- NOTE | 2019-03-07 08:59 | Diagnostic Imaging Report ---
EXAM: XR Chest, 1 View CLINICAL HISTORY: COUGH TECHNIQUE: Frontal view of the chest. COMPARISON: 02/17/19. FINDINGS: Lungs: Left midlung opacity may reflect an infectious infiltrate. Pleural space: Unremarkable. No pneumothorax. Heart: Not grossly enlarged on this rotated view. Mediastinum: Calcified aorta. Bones/joints: Osteopenia. IMPRESSION: Left midlung opacity may reflect an infectious infiltrate.
[2019-03-07] MEDS: levETIRAcetam 500mg/5ml Liquid GT SCH ×2 (09:01→21:05)
[2019-03-07] MEDS: Bacitracin Oint 15gm Tube TOPIC SCH ×3 (09:01→17:51)
[2019-03-07] MEDS: Heparin 5000 units/ml inj SUBQ SCH ×2 (09:05→21:06)
--- NOTE | 2019-03-07 09:45 | Pulmonology Progress Note ---
Assessment/Plan Assessment/Plan Impression: Sepsis syndrome Pneumonia VDRF, Trach, G tube, Hypertension, Cardiac disease, Dementia, Previous CVA, Seizure disorder, Respiratory failure with hypoxia Anemia, worsened ? gib Sacral ulcer renal cyst pulmonary congestion Plan respiratory care reviewed and d/w R atropine as needed; increase neb therapy as is off vent as able Oxygen low flow Monitor labs for change monitor imaging for change feeds as tolerated monitor albumin levels aspiration precautions difficult to place Patient is a DNR. No CPR. ICU care reviewed medications/laboratory data/nursing notes/ICU care reviewed in detail note reviewed and edited care discussed with RN and RT ICU time spent 39 minutes Subjective ROS Limited/Unobtainable: Yes Allergies: Coded Allergies: CODEINE (Verified Allergy, Unknown, HIVES, 09/15/09) Subjective respiratory care noted congestion- need increase in atropine ICU care reviewed supportive care and ICU care reviewed RT care reviewed overnight care noted findings reviewed and discussed still pending transfer Objective Last 24 Hour Vital Signs Date Time Temp Pulse Resp B/P (MAP) Pulse Ox O2 Delivery O2 Flow Rate FiO2 03/07/19 09:01 78 139/78 03/07/19 08:00 T-piece 8.0 03/07/19 08:00 98.5 78 25 139/78 (98) 98 03/07/19 08:00 8.0 30 03/07/19 07:00 100 T-Piece 6.0 28 03/07/19 07:00 83 27 152/65 (94) 99 03/07/19 07:00 80 26 100 T-Piece 6.0 28 78 27 100 03/07/19 06:00 98.6 78 25 147/66 (93) 100 03/07/19 05:00 81 30 144/70 (94) 100 03/07/19 04:00 T-piece 8.0 03/07/19 04:00 75 03/07/19 04:00 98.8 84 25 136/66 (89) 99 03/07/19 04:00 8.0 30 03/07/19 03:00 92 17 126/67 (86) 99 03/07/19 02:00 92 14 142/62 (88) 99 03/07/19 01:18 99 T-Piece 6.0 28 03/07/19 01:00 79 22 106/60 (75) 99 03/07/19 00:00 T-piece 8.0 03/07/19 00:00 98.8 82 26 133/57 (82) 99 03/07/19 00:00 81 03/06/19 23:00 89 19 140/66 (90) 100 03/06/19 22:47 93 18 100 T-Piece 6.0 28 86 23 98 03/06/19 22:00 87 22 124/61 (82) 98 03/06/19 21:00 91 19 136/64 (88) 99 03/06/19 20:22 95 133/75 03/06/19 20:11 100 T-Piece 6.0 28 03/06/19 20:00 T-piece 8.0 03/06/19 20:00 8.0 30 03/06/19 20:00 98.9 105 19 133/73 (93) 99 03/06/19 20:00 79 03/06/19 19:59 90 18 100 T-Piece 6.0 28 88 22 100 03/06/19 19:00 89 20 124/70 (88) 100 03/06/19 18:00 80 20 119/64 (82) 99 03/06/19 17:00 75 20 137/64 (88) 100 03/06/19 16:00 T-piece 8.0 03/06/19 16:00 88 03/06/19 16:00 8.0 30 03/06/19 16:00 98.0 77 19 135/63 (87) 100 03/06/19 15:50 78 18 100 T-Piece 6.0 28 82 22 100 03/06/19 15:00 80 23 152/52 (85) 99 03/06/19 14:00 82 23 126/67 (86) 98 03/06/19 13:45 100 T-Piece 6.0 28 03/06/19 13:00 78 22 125/67 (86) 97 03/06/19 12:00 98.8 83 19 132/108 (116) 94 03/06/19 12:00 8.0 30 03/06/19 12:00 T-piece 8.0 03/06/19 12:00 95 03/06/19 11:00 75 25 133/66 (88) 98 03/06/19 10:43 80 18 100 T-Piece 6.0 28 79 20 100 03/06/19 10:00 80 18 111/62 (78) 96 Intake and Output 03/06/19 03/07/19 19:00 07:00 Intake Total 260 ml 305 ml Output Total 50 ml 300 ml Balance 210 ml 5 ml Free Water 100 ml Tube Feeding 240 ml 175 ml Other 20 ml 30 ml Output Urine Total 50 ml 300 ml # Bowel Movements 2 2 Objective WDWN NAD contracted off vent reduced breath sounds bilaterally with some scattered rhonchi overall; no wheeze [id number] without MRG NABS nontender no HSM no CC minimal edema nonfocal nonverbal trach and gt reviewed and edited Current Medications Medications (Trade) Dose Ordered Sig/Maicol Route PRN Reason Start Time Stop Time Status Last Admin Dose Admin Acetylcysteine (Mucomyst) 200 mg Q4HRT HHN 02/28/19 03:00 03/29/19 16:59 03/07/19 06:59 Albuterol/ Ipratropium (Albuterol/ Ipratropium) 3 ml Q4H PRN HHN Shortness of Breath 03/04/19 23:30 03/09/19 23:29 03/07/19 06:59 Atropine Sulfate (Atropine Opth Adriana) 2 drop TID SL 03/07/19 09:00 04/06/19 08:59 03/07/19 09:02 Bacitracin (Bacitracin 15gm tube) 1 applic THREE TIMES A DAY TOPIC 02/28/19 18:30 03/30/19 18:29 03/07/19 09:01 Chlorhexidine Gluconate (Cesilia-Hex 2%) 1 applic DAILY@1999 TOPIC 02/18/19 20:00 03/12/19 19:59 03/06/19 20:21 Famotidine (Pepcid) 20 mg BID GT 03/02/19 18:00 04/01/19 17:59 03/07/19 09:01 Heparin Sodium (Porcine) (Heparin 5000 units/ml) 5,000 units EVERY 12 HOURS SUBQ 02/18/19 09:00 03/16/19 23:14 03/07/19 09:05 Hydralazine HCl (Apresoline) 25 mg Q4H PRN GT SBP above 160 02/18/19 05:46 03/09/19 05:45 03/02/19 04:02 Levetiracetam (Keppra) 750 mg Q12HR GT 02/18/19 09:00 03/16/19 23:29 03/07/19 09:01 Metoclopramide HCl (Reglan) 10 mg Q6H PRN IVP Nausea & Vomiting 02/18/19 05:46 03/09/19 05:45 03/07/19 02:45 Metoprolol Tartrate (Lopressor) 25 mg Q12HR GT 03/06/19 09:00 04/05/19 08:59 03/07/19 09:01 Amaury Chan MD Mar 07, 2019 09:45
--- NOTE | 2019-03-07 10:46 | Infectious Diseases Prog Note ---
Assessment/Plan Assessment/Plan antibiotics : none A 1. pneumonia 2. respiratory failure 3. hypertension 4. CVA 5. dementia 6. sacral decubitus ulcer 7. rectal VRE colonization 8. r/o c.diff colitis P 1. start inhaled amikacin 2. sputum culture 3. stool for c.diff 4. will follow up cultures Subjective ROS Limited/Unobtainable: Yes Allergies: Coded Allergies: CODEINE (Verified Allergy, Unknown, HIVES, 09/15/09) Objective Vital Signs Last 24 Hour Vital Signs Date Time Temp Pulse Resp B/P (MAP) Pulse Ox O2 Delivery O2 Flow Rate FiO2 03/07/19 09:01 78 139/78 03/07/19 08:00 T-piece 8.0 03/07/19 08:00 98.5 78 25 139/78 (98) 98 03/07/19 08:00 8.0 30 03/07/19 07:00 100 T-Piece 6.0 28 03/07/19 07:00 83 27 152/65 (94) 99 03/07/19 07:00 80 26 100 T-Piece 6.0 28 78 27 100 03/07/19 06:00 98.6 78 25 147/66 (93) 100 03/07/19 05:00 81 30 144/70 (94) 100 03/07/19 04:00 T-piece 8.0 03/07/19 04:00 75 03/07/19 04:00 98.8 84 25 136/66 (89) 99 03/07/19 04:00 8.0 30 03/07/19 03:00 92 17 126/67 (86) 99 03/07/19 02:00 92 14 142/62 (88) 99 03/07/19 01:18 99 T-Piece 6.0 28 03/07/19 01:00 79 22 106/60 (75) 99 03/07/19 00:00 T-piece 8.0 03/07/19 00:00 98.8 82 26 133/57 (82) 99 03/07/19 00:00 81 03/06/19 23:00 89 19 140/66 (90) 100 03/06/19 22:47 93 18 100 T-Piece 6.0 28 86 23 98 03/06/19 22:00 87 22 124/61 (82) 98 03/06/19 21:00 91 19 136/64 (88) 99 03/06/19 20:22 95 133/75 03/06/19 20:11 100 T-Piece 6.0 28 03/06/19 20:00 T-piece 8.0 03/06/19 20:00 8.0 30 03/06/19 20:00 98.9 105 19 133/73 (93) 99 03/06/19 20:00 79 03/06/19 19:59 90 18 100 T-Piece 6.0 28 88 22 100 03/06/19 19:00 89 20 124/70 (88) 100 03/06/19 18:00 80 20 119/64 (82) 99 03/06/19 17:00 75 20 137/64 (88) 100 03/06/19 16:00 T-piece 8.0 03/06/19 16:00 88 03/06/19 16:00 8.0 30 03/06/19 16:00 98.0 77 19 135/63 (87) 100 03/06/19 15:50 78 18 100 T-Piece 6.0 28 82 22 100 03/06/19 15:00 80 23 152/52 (85) 99 03/06/19 14:00 82 23 126/67 (86) 98 03/06/19 13:45 100 T-Piece 6.0 28 03/06/19 13:00 78 22 125/67 (86) 97 03/06/19 12:00 98.8 83 19 132/108 (116) 94 03/06/19 12:00 8.0 30 03/06/19 12:00 T-piece 8.0 03/06/19 12:00 95 03/06/19 11:00 75 25 133/66 (88) 98 Height (Feet): 5 Height (Inches): 5.00 Weight (Pounds): 180 HEENT: status post trach Respiratory/Chest: rhonchi - bilaterally Cardiovascular: normal rate, regular rhythm, no gallop/murmur Abdomen: soft, non tender, other - GT Extremities: no edema Current Medications Medications (Trade) Dose Ordered Sig/Maicol Route PRN Reason Start Time Stop Time Status Last Admin Dose Admin Acetylcysteine (Mucomyst) 200 mg Q4HRT HHN 02/28/19 03:00 03/29/19 16:59 03/07/19 06:59 Albuterol/ Ipratropium (Albuterol/ Ipratropium) 3 ml Q4H PRN HHN Shortness of Breath 03/04/19 23:30 03/09/19 23:29 03/07/19 06:59 Atropine Sulfate (Atropine Opth Adriana) 2 drop TID SL 03/07/19 09:00 04/06/19 08:59 03/07/19 09:02 Bacitracin (Bacitracin 15gm tube) 1 applic THREE TIMES A DAY TOPIC 02/28/19 18:30 03/30/19 18:29 03/07/19 09:01 Chlorhexidine Gluconate (Cesilia-Hex 2%) 1 applic DAILY@1999 TOPIC 02/18/19 20:00 03/12/19 19:59 03/06/19 20:21 Famotidine (Pepcid) 20 mg BID GT 03/02/19 18:00 04/01/19 17:59 03/07/19 09:01 Heparin Sodium (Porcine) (Heparin 5000 units/ml) 5,000 units EVERY 12 HOURS SUBQ 02/18/19 09:00 03/16/19 23:14 03/07/19 09:05 Hydralazine HCl (Apresoline) 25 mg Q4H PRN GT SBP above 160 02/18/19 05:46 03/09/19 05:45 03/02/19 04:02 Levetiracetam (Keppra) 750 mg Q12HR GT 02/18/19 09:00 03/16/19 23:29 03/07/19 09:01 Metoclopramide HCl (Reglan) 10 mg Q6H PRN IVP Nausea & Vomiting 02/18/19 05:46 03/09/19 05:45 03/07/19 02:45 Metoprolol Tartrate (Lopressor) 25 mg Q12HR GT 03/06/19 09:00 04/05/19 08:59 03/07/19 09:01 Geovany Yang MD Mar 07, 2019 10:46
--- NOTE | 2019-03-07 11:20 | NUR ---
NURSE NOTES: MD Clement made rounds, updates given about 1 episode of regurgitation during AM shift, 1 episode of regurgitation PM shift, reglan given on both shifts, told to stop feeding, place orders for D5 1/2NS @ 75cc/hr. Will place orders for MD.
--- NOTE | 2019-03-07 11:22 | NUR ---
NURSE NOTES: MD Santy made rounds, updates given. No new orders given.
[2019-03-07] MEDS: D5 1/2NS 1,000 ML IV SCH (11:29)
--- NOTE | 2019-03-07 12:17 | Surgery Progress Note ---
Surgery Progress Note Subjective Additional Comments Transfuse. Labs noted. Still not tolerating tube feeds well. Exam otherwise stable. Still in ICU. Pending placement. Objective Last 24 Hour Vital Signs Date Time Temp Pulse Resp B/P (MAP) Pulse Ox O2 Delivery O2 Flow Rate FiO2 03/07/19 11:23 71 03/07/19 11:00 65 21 98/51 (67) 99 03/07/19 10:49 65 18 100 T-Piece 6.0 28 66 21 99 03/07/19 10:00 76 24 99/55 (70) 100 03/07/19 09:01 78 139/78 03/07/19 09:00 81 23 137/54 (81) 100 03/07/19 08:00 T-piece 8.0 03/07/19 08:00 98.5 78 25 139/78 (98) 98 03/07/19 08:00 76 03/07/19 08:00 8.0 30 03/07/19 07:00 100 T-Piece 6.0 28 03/07/19 07:00 83 27 152/65 (94) 99 03/07/19 07:00 80 26 100 T-Piece 6.0 28 78 27 100 03/07/19 06:00 98.6 78 25 147/66 (93) 100 03/07/19 05:00 81 30 144/70 (94) 100 03/07/19 04:00 T-piece 8.0 03/07/19 04:00 75 03/07/19 04:00 98.8 84 25 136/66 (89) 99 03/07/19 04:00 8.0 30 03/07/19 03:00 92 17 126/67 (86) 99 03/07/19 02:00 92 14 142/62 (88) 99 03/07/19 01:18 99 T-Piece 6.0 28 03/07/19 01:00 79 22 106/60 (75) 99 03/07/19 00:00 T-piece 8.0 03/07/19 00:00 98.8 82 26 133/57 (82) 99 03/07/19 00:00 81 03/06/19 23:00 89 19 140/66 (90) 100 03/06/19 22:47 93 18 100 T-Piece 6.0 28 86 23 98 03/06/19 22:00 87 22 124/61 (82) 98 03/06/19 21:00 91 19 136/64 (88) 99 03/06/19 20:22 95 133/75 03/06/19 20:11 100 T-Piece 6.0 28 03/06/19 20:00 T-piece 8.0 03/06/19 20:00 8.0 30 03/06/19 20:00 98.9 105 19 133/73 (93) 99 03/06/19 20:00 79 03/06/19 19:59 90 18 100 T-Piece 6.0 28 88 22 100 03/06/19 19:00 89 20 124/70 (88) 100 03/06/19 18:00 80 20 119/64 (82) 99 03/06/19 17:00 75 20 137/64 (88) 100 03/06/19 16:00 T-piece 8.0 03/06/19 16:00 88 03/06/19 16:00 8.0 30 03/06/19 16:00 98.0 77 19 135/63 (87) 100 03/06/19 15:50 78 18 100 T-Piece 6.0 28 82 22 100 03/06/19 15:00 80 23 152/52 (85) 99 03/06/19 14:00 82 23 126/67 (86) 98 03/06/19 13:45 100 T-Piece 6.0 28 03/06/19 13:00 78 22 125/67 (86) 97 I&O Intake and Output 03/06/19 03/07/19 19:00 07:00 Intake Total 260 ml 305 ml Output Total 50 ml 300 ml Balance 210 ml 5 ml Free Water 100 ml Tube Feeding 240 ml 175 ml Other 20 ml 30 ml Output Urine Total 50 ml 300 ml # Bowel Movements 2 2 Dressing: other Wound: other Drains: other Cardiovascular: RSR Respiratory: decreased breath sounds Abdomen: soft, non-tender, non-distended, decreased bowel sounds Extremities: edema, no tenderness, no cyanosis, other Plan Problems: (1) Sacral decubitus ulcer Assessment & Plan: This is a 83-year-old female with multiple medical committees that is currently admitted for medical care and management and identified to have multiple wounds requiring care. On admission patient noted to have a resolved sacral decubitus ulcer. Has had prior care and is well-healed at this time. Will ensure it does not open up again. Patient has a right ischial decubitus ulcer that is resolved. Scar intact and well formed. Will monitor to ensure it does not open up again. Patient has a left ischial decubitus ulcer that can be identified to be stage IV with palpable bone that has been resolving as noted by the periwound tissue and scar but open area approximately 1 cm x 1.5 cm few millimeters deep to bone identified. Unsure if this is been to be completely healed prior and has since opened or if has been healing at this level. No foul odor no drainage was unsure local wound care until healed Bilateral heels soft without signs of injury Resolving pressure injury L ischium(L)1.8cm x (W)1cm.Scattered biofilm at base of wound. Edges flat and adherent with surrounding hyperpigmentation. No odor or exudate noted. Sacrum is pale pink with surrounding hyperpigmentation. Hyperpigmentation R ischium with small sheared area centrally.No areas of erythema or exudate noted. Both heels are soft but blanchable. Skin Assessed under collar of trach and no evidence of skin breakdown noted. All wound Tx. are effective and continued as ordered. Pt ahs an APM/Belén mattress overlay and is being repositioned per protocols and per tolerance.No new skin concerns noted. Full thickness pressure injury L Ischium with small amt biofilm (L)1.8cm x (W) 1cm. Surrounding pink hyperpigmentation. No odor or exudate noted. [place] hyperpigmentation from previous wound noted to sacrum. Pt also noted to have Cat 2 Skin Tear dorsal L hand, L 5th metatarsal extending into palm of hand. 80% skin flap in situ.Both heels are dry firm and blanchable. No other skin concerns noted. Cleanse Blister Dorsal and palm of L hand with saline. Versatel One Silicone Contact Layer(Applied). Apply Silvasorb Gel. Wrap with Kerlix Gauze.Change every 7 days and prn. Apply Moisture Barrier to sacrum. Cover with Optifoam drsg. Change every 3 days and prn. Cleanse L ischial wound with saline. Apply Therahoney. Apply Moisture Barrier Paste periwound. Cover with Optifoam drsg. Change every 3 days and prn. Apply Cavilon Skin Barrier to both heels. Cover each heel with Optifoam drsg. Change every 7 days and prn. APM/BELÉN Mattress overlay. Reposition at least every 2hours or as tolerated. Off-load heels with pillow. Nutritional optimization We will monitor follow with recommendations cont with above upon d/c (2) Sepsis Assessment & Plan: IV abx as per ID trend labs improving wounds unlikely etiology likely respiratory imaging noted and okay abnormal lft's stable PICC on Abx in ICU for desaturation CXR with consolidation Evidence of left lower lobe pneumonia, also previously demonstrated Gastrostomy in good position Mild diastasis of the rectus abdominis musculature again demonstrated Retrosacral decubitus changes, better depicted on prior exam which included the pelvis Small hiatal hernia with evidence of trace gastroesophageal reflux (3) Feeding by G-tube Assessment & Plan: DAILY ESTIMATED NEEDS: Needs based on Pulmonary, wounds, bedbound/ 60kg adj 25-28 kcals/kg 8136-5300 total kcals 1.25-2 g protein/kg 75-120 g total protein 25-30 mL/kg 6101-2803 total fluid mLs NUTRITION DIAGNOSIS: * Swallowing difficulty R/T respiratory status as evidenced by pt on T-collar, now back the vent, PEG dep, TF changed to low rate at this time due to episodes of vomiting + residuals. * Increased kcal/prot needs R/T wound healing as evidenced by BL buttocks and sacral wound photos, refer to eval. (CURRENT TF:Glucerna 1.5 @35ml) ENTERAL NUTRITION RECOMMENDATIONS: VITAL AF 1.2 @ 55ml/hr x 24 hrs to provide 1320ml, 1584kcal, 99g prot, 1060ml free water - Once medically appropriate to resume TF, rec to initiate elemental and carb control formula of Vital 1.2 for possible improved tolerance - Initiate VITAL 1.2 @ 25ml/hr x 6hrs, advance 10ml q 4-6 hrs as tolerated to goal rate - Flush per MD/ HOB over 30 degrees ADDITIONAL RECOMMENDATIONS: 1) Re-calibrated bedscale wt for accurate CBW 2) Wound healing: Add Cristian 1pkt BID w/ improved Tf tolerace + MVI x1 daily 3) Monitor lytes, replete as needed (low Mg, K) 4) Monitor NPO status, ability to resume TF. -> held on and off due to vomiting since 02/02 5) SSI prn resume tube feeds (4) Chronic vegetative state Assessment & Plan: incontinence of urine and stool. can soil dressings. nurses doing great job with monitoring and changing prn (5) Leukocytosis Additional Comments Trend labs. Continue with current treatment plan. Imaging noted. Walter Madera Mar 07, 2019 12:17
--- NOTE | 2019-03-07 12:41 | NUR ---
NURSE NOTES: Sputum culture sent down to lab.
[2019-03-07] MEDS: Amikacin for Inhalation 2ML INH SCH ×2 (14:59→22:59)
--- NOTE | 2019-03-07 15:28 | NUR ---
NURSE NOTES: Krystina-care, total linens change, wound care done, no BM noted when trying to collect sample for stool culture per pending order. Will continue to monitor PT.
[2019-03-07] MEDS ORDERED: Sterile Water Irrig 1000ml IRRIG ONE (15:42)
[2019-03-07] MEDS ORDERED: NS 275ml ONE (15:42)
[2019-03-07] MEDS ORDERED: D5 1/2NS 1000ml IV ONE (15:42)
--- NOTE | 2019-03-07 17:21 | General Progress Note ---
Assessment/Plan Status: stable, progressing Assessment/Plan: Assessment - N/V, periodic, including suctioning of feeds from mouth - suspect due to gastroparesis - Have held off on G to J conversion per daughter request - message left with patient daughter to call to discuss - Elevated Alk phos / LFT - CT negative - abd U/S negative - check hepatitis serologies - negative - Anemia with OB (-) stools - Resp failure, s/p Trach - dysphagia, s/p PEG --> s/p GT change - OBS - minor GT tract inflammation / infection - poor Px Recommendations - laxative PRN - antibiotic ointment to GT site PRN - NPO/IVF - aspiration precautions - elevate HOB - PPI - d/w DTR Subjective Allergies: Coded Allergies: CODEINE (Verified Allergy, Unknown, HIVES, 09/15/09) Subjective seen in am d/w RN GT noted to be suctioned from patient mouth TF held I left a VM with daughter Chika to discuss this issue again Objective Last 24 Hour Vital Signs Date Time Temp Pulse Resp B/P (MAP) Pulse Ox O2 Delivery O2 Flow Rate FiO2 03/07/19 16:00 T-piece 8.0 03/07/19 16:00 8.0 30 03/07/19 16:00 71 03/07/19 16:00 97.2 75 19 159/65 (96) 100 03/07/19 15:28 73 22 100 T-Piece 6.0 28 77 26 100 03/07/19 15:00 78 21 144/64 (90) 100 03/07/19 14:59 89 17 100 T-Piece 6.0 28 78 17 100 03/07/19 14:00 71 19 139/63 (88) 100 03/07/19 13:30 100 T-Piece 6.0 28 03/07/19 13:00 66 19 125/48 (73) 100 03/07/19 12:00 8.0 30 03/07/19 12:00 97.8 81 24 155/62 (93) 100 03/07/19 12:00 T-piece 8.0 03/07/19 11:23 71 03/07/19 11:00 65 21 98/51 (67) 99 03/07/19 10:49 65 18 100 T-Piece 6.0 28 66 21 99 03/07/19 10:00 76 24 99/55 (70) 100 03/07/19 09:01 78 139/78 03/07/19 09:00 81 23 137/54 (81) 100 03/07/19 08:00 T-piece 8.0 03/07/19 08:00 98.5 78 25 139/78 (98) 98 03/07/19 08:00 76 03/07/19 08:00 8.0 30 03/07/19 07:00 100 T-Piece 6.0 28 03/07/19 07:00 83 27 152/65 (94) 99 03/07/19 07:00 80 26 100 T-Piece 6.0 28 78 27 100 03/07/19 06:00 98.6 78 25 147/66 (93) 100 03/07/19 05:00 81 30 144/70 (94) 100 03/07/19 04:00 T-piece 8.0 03/07/19 04:00 75 03/07/19 04:00 98.8 84 25 136/66 (89) 99 03/07/19 04:00 8.0 30 03/07/19 03:00 92 17 126/67 (86) 99 03/07/19 02:00 92 14 142/62 (88) 99 03/07/19 01:18 99 T-Piece 6.0 28 03/07/19 01:00 79 22 106/60 (75) 99 03/07/19 00:00 T-piece 8.0 03/07/19 00:00 98.8 82 26 133/57 (82) 99 03/07/19 00:00 81 03/06/19 23:00 89 19 140/66 (90) 100 03/06/19 22:47 93 18 100 T-Piece 6.0 28 86 23 98 03/06/19 22:00 87 22 124/61 (82) 98 03/06/19 21:00 91 19 136/64 (88) 99 03/06/19 20:22 95 133/75 03/06/19 20:11 100 T-Piece 6.0 28 03/06/19 20:00 T-piece 8.0 03/06/19 20:00 8.0 30 03/06/19 20:00 98.9 105 19 133/73 (93) 99 03/06/19 20:00 79 12/6/19 19:59 90 18 100 T-Piece 6.0 28 88 22 100 03/06/19 19:00 89 20 124/70 (88) 100 03/06/19 18:00 80 20 119/64 (82) 99 Intake and Output 03/06/19 03/07/19 19:00 07:00 Intake Total 260 ml 305 ml Output Total 50 ml 300 ml Balance 210 ml 5 ml Free Water 100 ml Tube Feeding 240 ml 175 ml Other 20 ml 30 ml Output Urine Total 50 ml 300 ml # Bowel Movements 2 2 Height (Feet): 5 Height (Inches): 5.00 Weight (Pounds): 180 Objective Debilitated AA woman NCAT (+) trach coarse ronchi RR obese abd, (+) GT no edema Celio Vaughan MD Mar 07, 2019 17:21
--- NOTE | 2019-03-07 19:30 | NUR ---
NURSE NOTES: Received report from Ifeanyi PAEZ. PT obtunded, no moaning no facial grimaces. 02 sat 100% on t-piece Shiley 6 XLT @ 30%. suctioned small amount of drainage from t-piece, G-tube feeding HOLD per MD. no residual. HOB elevated. Patient connected to [place]. PT has Right upper arm PICC double lumens no s/s of infiltration. Bilateral upper extremities contracted, bilateral lower extremities elevated, HOB raised for aspiration precautions, side rails padded for seizure precautions, code status of PT DNR w/ chemical code. Contact isolation and seizure precaution maintained and observed. Bed alarm on. bed locked and in low position. Call light within easy reach. Dressing intact on sacral and buttock Pressure sore. On P200 mattress for wound management. will continue plan of care.
--- NOTE | 2019-03-07 19:32 | NUR ---
HAND-OFF: Report and PT given to JEANNINE Salomon.
[2019-03-07] MEDS: Dyna-Hex 2% Top Sol 2oz TOPIC SCH (21:04)
--- NOTE | 2019-03-07 21:30 | NUR ---
NURSE NOTES: Medication given. Turned and repositioned patient. kept clean and dry. oral care and suctioned provided. HOB elevated. no s/s of acute distress noted frequent visual checks continued.
--- NOTE | 2019-03-07 23:30 | NUR ---
NURSE NOTES: Patient in bed no moaning no facial grimaces. No s/s of cardiac and respiratory distress. no fever. no n/v. turned and repositioned. bilateral upper and lower extremities elevated with pillows.
[2019-03-08] VITALS (24 sets, daily range): BP systolic 98–164; BP diastolic 43–95
[2019-03-08] MEDS: D5 1/2NS 1,000 ML IV SCH ×2 (00:58→12:17)
--- NOTE | 2019-03-08 01:30 | NUR ---
NURSE NOTES: Bed bath given tolerated well. no moaning no facial grimaces. No s/s of cardiac and respiratory distress. no fever. no n/v. turned and repositioned. bilateral upper and lower extremities elevated with pillows.
[2019-03-08] MEDS: Albuterol/Ipratropium 3ml neb HHN PRN ×6 (03:07→23:55)
[2019-03-08] MEDS: Acetylcysteine 20% Soln 4ml HHN SCH ×6 (03:07→23:55)
--- NOTE | 2019-03-08 03:30 | NUR ---
NURSE NOTES: Patient in bed sleeping comfortably. no moaning no facial grimaces. no s/s of acute distress noted. Oral care provided and suctioned patient orally. turned and reposition, no fever. no n/v. frequent visual checks continued.
--- NOTE | 2019-03-08 05:30 | NUR ---
NURSE NOTES: Patient in bed sleeping comfortably. oral care provided. patient with less secretions. frequent visual checks continued. no fever. Temp 98 axillary. comfort measure provided. will continue to monitor patient.
[2019-03-08 05:42] LABS: BASOPHILS % (AUTO) 0.8 % (0.0-2.0); EOSINOPHILS % (AUTO) 6.6 % (0.0-3.0); HEMOGLOBIN 9.8 G/DL (12.0-16.0); LYMPHOCYTES % (AUTO) 47.1 % (20.0-45.0); MEAN CORPUSCULAR VOLUME 86 FL (80-99); MONOCYTES % (AUTO) 6.2 % (1.0-10.0); NEUTROPHILS % (AUTO) 39.2 % (45.0-75.0); PLATELET COUNT 192 K/UL (150-450); RED BLOOD COUNT 3.62 M/UL (4.20-5.40); RED CELL DISTRIBUTION WIDTH 16.5 % (11.6-14.8); WHITE BLOOD COUNT 8.7 K/UL (4.8-10.8)
[2019-03-08 06:10] LABS: PHOSPHORUS 3.2 MG/DL (2.5-4.9)
[2019-03-08 06:46] LABS: ALANINE AMINOTRANSFERASE 39 U/L (12-78); ALBUMIN 2.9 G/DL (3.4-5.0); ALBUMIN/GLOBULIN RATIO 0.5 (1.0-2.7); ALKALINE PHOSPHATASE 96 U/L (46-116); ANION GAP 8 mmol/L (5-15); ASPARTATE AMINO TRANSFERASE 38 U/L (15-37); BILIRUBIN,TOTAL 0.3 MG/DL (0.2-1.0); BLOOD UREA NITROGEN 29 mg/dL (7-18); CALCIUM 9.2 MG/DL (8.5-10.1); CARBON DIOXIDE 28 MMOL/L (21-32); CHLORIDE 106 MMOL/L (98-107); CREATININE 0.9 MG/DL (0.55-1.30); SODIUM 142 MMOL/L (136-145)
--- NOTE | 2019-03-08 07:54 | NUR ---
HAND-OFF: Report given to Julia PAEZ.
--- NOTE | 2019-03-08 07:55 | NUR ---
NURSE NOTES: Received patient in bed. On Tpiece as tolerated. GT inplace, TF on hold. Osiris noted. No respiratory distress at this time. Contact isolation observed. Will continue plan of care.
--- NOTE | 2019-03-08 08:30 | NUR ---
NURSE NOTES: Dr. Vaughan at bedside.
[2019-03-08] MEDS: Bacitracin Oint 15gm Tube TOPIC SCH ×3 (09:12→18:11)
[2019-03-08] MEDS: levETIRAcetam 500mg/5ml Liquid GT SCH ×2 (09:12→21:19)
[2019-03-08] MEDS: Heparin 5000 units/ml inj SUBQ SCH ×2 (09:14→21:20)
--- NOTE | 2019-03-08 09:59 | Infectious Diseases Prog Note ---
Assessment/Plan Assessment/Plan A 1. Acinetobacter, Enterobacter, pseudomonas & Klebsiella pneumonia 2. respiratory failure 3. hypertension 4. CVA 5. dementia 6. sacral decubitus ulcer 7. rectal VRE colonization 8. Anemia 9. Proteus UTI 10. Acute renal failure 11. Leukocytosis P 1.Continue Amikacin inhaler 2. Frequent suctioning 3. Remove PICC line before discharge Subjective ROS Limited/Unobtainable: Yes Constitutional: Denies: fever Allergies: Coded Allergies: CODEINE (Verified Allergy, Unknown, HIVES, 09/15/09) Objective Vital Signs Last 24 Hour Vital Signs Date Time Temp Pulse Resp B/P (MAP) Pulse Ox O2 Delivery O2 Flow Rate FiO2 03/08/19 09:13 101 164/65 03/08/19 09:00 101 20 164/65 (98) 99 03/08/19 08:01 80 03/08/19 08:00 8.0 30 03/08/19 08:00 97.8 76 20 150/60 (90) 100 03/08/19 08:00 T-piece 8.0 03/08/19 07:00 103 18 154/76 (102) 98 03/08/19 06:52 76 24 100 T-Piece 6.0 28 78 23 100 03/08/19 06:52 100 T-Piece 6.0 28 03/08/19 06:00 76 18 154/59 (90) 100 03/08/19 05:00 67 19 149/54 (85) 100 03/08/19 04:00 8.0 30 03/08/19 04:00 68 03/08/19 04:00 T-piece 8.0 03/08/19 04:00 97.9 67 20 145/52 (83) 100 03/08/19 03:07 61 20 100 T-Piece 6.0 28 63 20 100 03/08/19 03:00 64 19 154/60 (91) 100 03/08/19 02:00 63 18 155/55 (88) 100 03/08/19 01:12 100 T-Piece 6.0 28 03/08/19 01:00 66 17 158/62 (94) 100 03/08/19 00:00 71 03/08/19 00:00 98.0 65 17 150/66 (94) 100 03/08/19 00:00 T-piece 8.0 03/07/19 23:05 69 17 100 T-Piece 6.0 28 68 17 100 03/07/19 23:00 70 18 159/65 (96) 100 03/07/19 22:59 72 19 100 T-Piece 6.0 28 70 18 100 03/07/19 22:00 67 20 146/55 (85) 100 03/07/19 21:05 71 160/64 03/07/19 21:00 84 28 160/64 (96) 100 03/07/19 20:00 T-piece 8.0 03/07/19 20:00 68 03/07/19 20:00 69 15 122/50 (74) 100 03/07/19 20:00 8.0 30 03/07/19 19:10 100 T-Piece 6.0 28 03/07/19 19:10 71 20 100 T-Piece 6.0 28 70 20 100 03/07/19 19:00 97.9 72 21 147/58 (87) 100 03/07/19 18:00 71 20 141/67 (91) 100 03/07/19 17:00 93 23 157/64 (95) 100 03/07/19 16:00 T-piece 8.0 03/07/19 16:00 8.0 30 03/07/19 16:00 71 03/07/19 16:00 97.2 75 19 159/65 (96) 100 03/07/19 15:28 73 22 100 T-Piece 6.0 28 77 26 100 03/07/19 15:00 78 21 144/64 (90) 100 03/07/19 14:59 89 17 100 T-Piece 6.0 28 78 17 100 03/07/19 14:00 71 19 139/63 (88) 100 03/07/19 13:30 100 T-Piece 6.0 28 03/07/19 13:00 66 19 125/48 (73) 100 03/07/19 12:00 8.0 30 03/07/19 12:00 97.8 81 24 155/62 (93) 100 03/07/19 12:00 T-piece 8.0 03/07/19 11:23 71 03/07/19 11:00 65 21 98/51 (67) 99 03/07/19 10:49 65 18 100 T-Piece 6.0 28 66 21 99 03/07/19 10:00 76 24 99/55 (70) 100 Height (Feet): 5 Height (Inches): 5.00 Weight (Pounds): 180 General Appearance: no acute distress HEENT: mucous membranes moist Respiratory/Chest: rhonchi - bilaterally, other - on T bar Cardiovascular: tachycardia Abdomen: soft, non tender Extremities: no edema Neurologic/Psychiatric: aphasia Microbiology Date/Time Source Procedure Growth Status 03/07/19 11:30 Sputum Gram Stain - Final Resulted 03/07/19 11:30 Sputum Sputum Culture Pending Resulted Laboratory Tests Test 03/08/19 04:00 White Blood Count 8.7 K/UL (4.8-10.8) Red Blood Count 3.62 M/UL (4.20-5.40) L Hemoglobin 9.8 G/DL (12.0-16.0) L Hematocrit 31.0 % (37.0-47.0) L Mean Corpuscular Volume 86 FL (80-99) Mean Corpuscular Hemoglobin 27.2 PG (27.0-31.0) Mean Corpuscular Hemoglobin Concent 31.7 G/DL (32.0-36.0) L Red Cell Distribution Width 16.5 % (11.6-14.8) H Platelet Count 192 K/UL (150-450) Mean Platelet Volume 6.5 FL (6.5-10.1) Neutrophils (%) (Auto) 39.2 % (45.0-75.0) L Lymphocytes (%) (Auto) 47.1 % (20.0-45.0) H Monocytes (%) (Auto) 6.2 % (1.0-10.0) Eosinophils (%) (Auto) 6.6 % (0.0-3.0) H Basophils (%) (Auto) 0.8 % (0.0-2.0) Sodium Level 142 MMOL/L (136-145) Potassium Level 4.0 MMOL/L (3.5-5.1) Chloride Level 106 MMOL/L (98-107) Carbon Dioxide Level 28 MMOL/L (21-32) Anion Gap 8 mmol/L (5-15) Blood Urea Nitrogen 29 mg/dL (7-18) H Creatinine 0.9 MG/DL (0.55-1.30) Estimat Glomerular Filtration Rate mL/min (>60) Glucose Level 91 MG/DL (74-106) Calcium Level 9.2 MG/DL (8.5-10.1) Phosphorus Level 3.2 MG/DL (2.5-4.9) Magnesium Level 1.9 MG/DL (1.8-2.4) Total Bilirubin 0.3 MG/DL (0.2-1.0) Aspartate Amino Transf (AST/SGOT) 38 U/L (15-37) H Alanine Aminotransferase (ALT/SGPT) 39 U/L (12-78) Alkaline Phosphatase 96 U/L (46-116) C-Reactive Protein, Quantitative 1.7 mg/dL (0.00-0.90) H Pro-B-Type Natriuretic Peptide 140 pg/mL (0-125) H Total Protein 8.4 G/DL (6.4-8.2) H Albumin 2.9 G/DL (3.4-5.0) L Globulin 5.5 g/dL Albumin/Globulin Ratio 0.5 (1.0-2.7) L Current Medications Medications (Trade) Dose Ordered Sig/Maicol Route PRN Reason Start Time Stop Time Status Last Admin Dose Admin Acetylcysteine (Mucomyst) 200 mg Q4HRT HHN 02/28/19 03:00 03/29/19 16:59 03/08/19 06:51 Albuterol/ Ipratropium (Albuterol/ Ipratropium) 3 ml Q4H PRN HHN Shortness of Breath 03/04/19 23:30 03/09/19 23:29 03/08/19 06:51 Amikacin Sulfate (Amikin) 500 mg Q12HR@ INH 03/07/19 11:00 03/14/19 10:59 03/07/19 22:59 Atropine Sulfate (Atropine Opth Adriana) 2 drop TID SL 03/07/19 09:00 04/06/19 08:59 03/08/19 09:12 Bacitracin (Bacitracin 15gm tube) 1 applic THREE TIMES A DAY TOPIC 02/28/19 18:30 03/30/19 18:29 03/08/19 09:12 Chlorhexidine Gluconate (Cesilia-Hex 2%) 1 applic DAILY@1999 TOPIC 02/18/19 20:00 03/12/19 19:59 03/07/19 21:04 Dextrose/Sodium Chloride 1,000 ml @ 75 mls/hr [id number] IV 03/07/19 11:15 04/06/19 11:14 03/08/19 00:58 Famotidine (Pepcid) 20 mg BID GT 03/02/19 18:00 04/01/19 17:59 03/08/19 09:13 Heparin Sodium (Porcine) (Heparin 5000 units/ml) 5,000 units EVERY 12 HOURS SUBQ 02/18/19 09:00 03/16/19 23:14 03/08/19 09:14 Hydralazine HCl (Apresoline) 25 mg Q4H PRN GT SBP above 160 02/18/19 05:46 03/09/19 05:45 03/02/19 04:02 Levetiracetam (Keppra) 750 mg Q12HR GT 02/18/19 09:00 03/16/19 23:29 03/08/19 09:12 Metoclopramide HCl (Reglan) 10 mg Q6H PRN IVP Nausea & Vomiting 02/18/19 05:46 03/09/19 05:45 03/07/19 02:45 Metoprolol Tartrate (Lopressor) 25 mg Q12HR GT 03/06/19 09:00 04/05/19 08:59 03/08/19 09:13 Chauncey Liriano MD Mar 08, 2019 09:59
[2019-03-08] MEDS: Amikacin for Inhalation 2ML INH SCH ×2 (10:23→22:00)
--- NOTE | 2019-03-08 10:52 | Nephrology Progress Note ---
Assessment/Plan Problem List: (1) Acute renal failure (ARF) Assessment: Cr stable (2) Chronic respiratory failure (3) Anemia (4) Sepsis Assessment Acute renal failure Respiratory failure - Trach Low Mag- Low k , Low Na Anemia UTI / Sepsis Proteinuria / HypoAlbuminemia high Trigs Sz decubs bed bound DNR Plan no labs today bolus Albumin as needed K and Mag and Phos supplement as needed Hydrate as needed Urine studies avoid Nephrotoxics mag K Phos supplements as needed monitor renal parameters Subjective ROS Limited/Unobtainable: Yes Objective Objective Last 24 Hour Vital Signs Date Time Temp Pulse Resp B/P (MAP) Pulse Ox O2 Delivery O2 Flow Rate FiO2 03/08/19 10:23 70 20 100 T-Piece 6.0 28 72 23 98 03/08/19 10:00 87 21 132/95 (107) 98 03/08/19 09:13 101 164/65 03/08/19 09:00 101 20 164/65 (98) 99 03/08/19 08:01 80 03/08/19 08:00 8.0 30 03/08/19 08:00 97.8 76 20 150/60 (90) 100 03/08/19 08:00 T-piece 8.0 03/08/19 07:00 103 18 154/76 (102) 98 03/08/19 06:52 76 24 100 T-Piece 6.0 28 78 23 100 03/08/19 06:52 100 T-Piece 6.0 28 03/08/19 06:00 76 18 154/59 (90) 100 03/08/19 05:00 67 19 149/54 (85) 100 03/08/19 04:00 8.0 30 03/08/19 04:00 68 03/08/19 04:00 T-piece 8.0 03/08/19 04:00 97.9 67 20 145/52 (83) 100 03/08/19 03:07 61 20 100 T-Piece 6.0 28 63 20 100 03/08/19 03:00 64 19 154/60 (91) 100 03/08/19 02:00 63 18 155/55 (88) 100 03/08/19 01:12 100 T-Piece 6.0 28 03/08/19 01:00 66 17 158/62 (94) 100 03/08/19 00:00 71 03/08/19 00:00 98.0 65 17 150/66 (94) 100 03/08/19 00:00 T-piece 8.0 03/07/19 23:05 69 17 100 T-Piece 6.0 28 68 17 100 03/07/19 23:00 70 18 159/65 (96) 100 03/07/19 22:59 72 19 100 T-Piece 6.0 28 70 18 100 03/07/19 22:00 67 20 146/55 (85) 100 03/07/19 21:05 71 160/64 03/07/19 21:00 84 28 160/64 (96) 100 03/07/19 20:00 T-piece 8.0 03/07/19 20:00 68 03/07/19 20:00 69 15 122/50 (74) 100 03/07/19 20:00 8.0 30 03/07/19 19:10 100 T-Piece 6.0 28 03/07/19 19:10 71 20 100 T-Piece 6.0 28 70 20 100 03/07/19 19:00 97.9 72 21 147/58 (87) 100 03/07/19 18:00 71 20 141/67 (91) 100 03/07/19 17:00 93 23 157/64 (95) 100 03/07/19 16:00 T-piece 8.0 03/07/19 16:00 8.0 30 03/07/19 16:00 71 03/07/19 16:00 97.2 75 19 159/65 (96) 100 03/07/19 15:28 73 22 100 T-Piece 6.0 28 77 26 100 03/07/19 15:00 78 21 144/64 (90) 100 03/07/19 14:59 89 17 100 T-Piece 6.0 28 78 17 100 03/07/19 14:00 71 19 139/63 (88) 100 03/07/19 13:30 100 T-Piece 6.0 28 03/07/19 13:00 66 19 125/48 (73) 100 03/07/19 12:00 8.0 30 03/07/19 12:00 97.8 81 24 155/62 (93) 100 03/07/19 12:00 T-piece 8.0 03/07/19 11:23 71 03/07/19 11:00 65 21 98/51 (69) 99 Intake and Output 03/07/19 03/08/19 19:00 07:00 Intake Total 563.75 ml 886.25 ml Output Total 200 ml Balance 563.75 ml 686.25 ml IV Total 563.75 ml 886.25 ml Output Urine Total 200 ml # Voids 2 Laboratory Tests 03/08/19 04:00: White Blood Count 8.7, Red Blood Count 3.62L, Hemoglobin 9.8L, Hematocrit 31.0L , Mean Corpuscular Volume 86, Mean Corpuscular Hemoglobin 27.2, Mean Corpuscular Hemoglobin Concent 31.7L, Red Cell Distribution Width 16.5H, Platelet Count 192, Mean Platelet Volume 6.5, Neutrophils (%) (Auto) 39.2L, Lymphocytes (%) (Auto) 47.1H, Monocytes (%) (Auto) 6.2, Eosinophils (%) (Auto) 6.6H, Basophils (%) (Auto) 0.8, Sodium Level 142, Potassium Level 4.0, Chloride Level 106, Carbon Dioxide Level 28, Anion Gap 8, Blood Urea Nitrogen 29H, Creatinine 0.9, Estimat Glomerular Filtration Rate , Glucose Level 91, Calcium Level 9.2, Phosphorus Level 3.2, Magnesium Level 1.9, Total Bilirubin 0.3, Aspartate Amino Transf (AST/SGOT) 38H, Alanine Aminotransferase (ALT/SGPT) 39, Alkaline Phosphatase 96, C-Reactive Protein, Quantitative 1.7H, Pro-B-Type Natriuretic Peptide 140H, Total Protein 8.4H, Albumin 2.9L, Globulin 5.5, Albumin/Globulin Ratio 0.5L Height (Feet): 5 Height (Inches): 5.00 Weight (Pounds): 180 General Appearance: no apparent distress EENT: other - trach- Vent Cardiovascular: normal rate Respiratory/Chest: decreased breath sounds Abdomen: soft Objective no change Eric Cortez MD Mar 08, 2019 10:52
--- NOTE | 2019-03-08 12:27 | General Progress Note ---
Assessment/Plan Problem List: (1) Seizure ICD Codes: R56.9 - Unspecified convulsions SNOMED: 10325511 (2) Anemia ICD Codes: D64.9 - Anemia, unspecified SNOMED: 821152768 Qualifiers: Qualified Codes: D64.9 - Anemia, unspecified (3) Sepsis ICD Codes: A41.9 - Sepsis, unspecified organism SNOMED: 75721238, 481693120 Qualifiers: Qualified Codes: A41.9 - Sepsis, unspecified organism (4) Respiratory failure with hypoxia ICD Codes: J96.91 - Respiratory failure, unspecified with hypoxia SNOMED: 60638020818847881 Qualifiers: Qualified Codes: J96.21 - Acute and chronic respiratory failure with hypoxia (5) HCAP (healthcare-associated pneumonia) ICD Codes: J18.9 - Pneumonia, unspecified organism SNOMED: 742709222, 539821197 (6) Sacral decubitus ulcer ICD Codes: L89.159 - Pressure ulcer of sacral region, unspecified stage SNOMED: 054057907 (7) HTN (hypertension) ICD Codes: I10 - Essential (primary) hypertension SNOMED: 69363024 (8) Chronic vegetative state ICD Codes: R40.3 - Persistent vegetative state SNOMED: 54648969 (9) Chronic respiratory failure ICD Codes: J96.10 - Chronic respiratory failure, unspecified whether with hypoxia or hypercapnia SNOMED: 50000216 (10) Limited mobility ICD Codes: Z74.09 - Other reduced mobility SNOMED: 0396972 Status: stable, progressing Assessment/Plan: vent prn as needed resp rx suctioning as needed gt feeds with caution bowel regime monitor residuals sx rx monitor bp monitor cbc monitor for bleeding Subjective ROS Limited/Unobtainable: Yes Constitutional: Reports: malaise, weakness HEENT: Reports: no symptoms Cardiovascular: Reports: no symptoms Respiratory: Reports: shortness of breath, sputum, wheezing Gastrointestinal/Abdominal: Reports: difficulty swallowing Genitourinary: Reports: no symptoms Neurologic/Psychiatric: Reports: pre-existing deficit, seizure Endocrine: Reports: no symptoms Hematologic/Lymphatic: Reports: anemia Allergies: Coded Allergies: CODEINE (Verified Allergy, Unknown, HIVES, 09/15/09) All Systems: reviewed and negative except above Subjective feeds on hold. no congestion or vomiting. still with secretions but less. labs noted. no fever or chills. poorly responsive at baseline on inhaled abx. Left lung opacity on cxr. ?old Objective Last 24 Hour Vital Signs Date Time Temp Pulse Resp B/P (MAP) Pulse Ox O2 Delivery O2 Flow Rate FiO2 03/08/19 11:49 59 18 100 T-Piece 6.0 28 63 23 100 03/08/19 11:00 82 21 140/67 (91) 98 03/08/19 10:23 70 20 100 T-Piece 6.0 28 72 23 98 03/08/19 10:00 87 21 132/95 (107) 98 03/08/19 09:13 101 164/65 03/08/19 09:00 101 20 164/65 (98) 99 03/08/19 08:01 80 03/08/19 08:00 8.0 30 03/08/19 08:00 97.8 76 20 150/60 (90) 100 03/08/19 08:00 T-piece 8.0 03/08/19 07:00 103 18 154/76 (102) 98 03/08/19 06:52 76 24 100 T-Piece 6.0 28 78 23 100 03/08/19 06:52 100 T-Piece 6.0 28 03/08/19 06:00 76 18 154/59 (90) 100 03/08/19 05:00 67 19 149/54 (85) 100 03/08/19 04:00 8.0 30 03/08/19 04:00 68 03/08/19 04:00 T-piece 8.0 03/08/19 04:00 97.9 67 20 145/52 (83) 100 03/08/19 03:07 61 20 100 T-Piece 6.0 28 63 20 100 03/08/19 03:00 64 19 154/60 (91) 100 03/08/19 02:00 63 18 155/55 (88) 100 03/08/19 01:12 100 T-Piece 6.0 28 03/08/19 01:00 66 17 158/62 (94) 100 03/08/19 00:00 71 03/08/19 00:00 98.0 65 17 150/66 (94) 100 03/08/19 00:00 T-piece 8.0 03/07/19 23:05 69 17 100 T-Piece 6.0 28 68 17 100 03/07/19 23:00 70 18 159/65 (96) 100 03/07/19 22:59 72 19 100 T-Piece 6.0 28 70 18 100 03/07/19 22:00 67 20 146/55 (85) 100 03/07/19 21:05 71 160/64 03/07/19 21:00 84 28 160/64 (96) 100 03/07/19 20:00 T-piece 8.0 03/07/19 20:00 68 03/07/19 20:00 69 15 122/50 (74) 100 03/07/19 20:00 8.0 30 03/07/19 19:10 100 T-Piece 6.0 28 03/07/19 19:10 71 20 100 T-Piece 6.0 28 70 20 100 03/07/19 19:00 97.9 72 21 147/58 (87) 100 03/07/19 18:00 71 20 141/67 (91) 100 03/07/19 17:00 93 23 157/64 (95) 100 03/07/19 16:00 T-piece 8.0 03/07/19 16:00 8.0 30 03/07/19 16:00 71 03/07/19 16:00 97.2 75 19 159/65 (96) 100 03/07/19 15:28 73 22 100 T-Piece 6.0 28 77 26 100 03/07/19 15:00 78 21 144/64 (90) 100 03/07/19 14:59 89 17 100 T-Piece 6.0 28 78 17 100 03/07/19 14:00 71 19 139/63 (88) 100 03/07/19 13:30 100 T-Piece 6.0 28 03/07/19 13:00 66 19 125/48 (73) 100 Intake and Output 03/07/19 03/08/19 19:00 07:00 Intake Total 563.75 ml 886.25 ml Output Total 200 ml Balance 563.75 ml 686.25 ml IV Total 563.75 ml 886.25 ml Output Urine Total 200 ml # Voids 2 Laboratory Tests 03/08/19 04:00: White Blood Count 8.7, Red Blood Count 3.62L, Hemoglobin 9.8L, Hematocrit 31.0L , Mean Corpuscular Volume 86, Mean Corpuscular Hemoglobin 27.2, Mean Corpuscular Hemoglobin Concent 31.7L, Red Cell Distribution Width 16.5H, Platelet Count 192, Mean Platelet Volume 6.5, Neutrophils (%) (Auto) 39.2L, Lymphocytes (%) (Auto) 47.1H, Monocytes (%) (Auto) 6.2, Eosinophils (%) (Auto) 6.6H, Basophils (%) (Auto) 0.8, Sodium Level 142, Potassium Level 4.0, Chloride Level 106, Carbon Dioxide Level 28, Anion Gap 8, Blood Urea Nitrogen 29H, Creatinine 0.9, Estimat Glomerular Filtration Rate , Glucose Level 91, Calcium Level 9.2, Phosphorus Level 3.2, Magnesium Level 1.9, Total Bilirubin 0.3, Aspartate Amino Transf (AST/SGOT) 38H, Alanine Aminotransferase (ALT/SGPT) 39, Alkaline Phosphatase 96, C-Reactive Protein, Quantitative 1.7H, Pro-B-Type Natriuretic Peptide 140H, Total Protein 8.4H, Albumin 2.9L, Globulin 5.5, Albumin/Globulin Ratio 0.5L Height (Feet): 5 Height (Inches): 5.00 Weight (Pounds): 180 Objective General Appearance: WD/WN, confused. on trach collar Neck: supple Cardiovascular: normal rate, regular rhythm Respiratory/Chest: chest wall non-tender, rhonchi - bilaterally(minimal) Abdomen: normal bowel sounds, non tender, soft, no organomegaly Edema: no edema noted Arm (L), no edema noted Arm (R), no edema noted Leg (L), no edema noted Leg (R), no edema noted Pedal (L), no edema noted Pedal (R), no edema noted Generalized Neurologic: disoriented, unresponsive, aphasia Irvin Beltrán MD Mar 08, 2019 12:27
--- NOTE | 2019-03-08 15:01 | Pulmonology Progress Note ---
Assessment/Plan Assessment/Plan Impression: Sepsis syndrome Pneumonia VDRF, Trach, G tube, Hypertension, Cardiac disease, Dementia, Previous CVA, Seizure disorder, Respiratory failure with hypoxia Anemia, worsened ? gib Sacral ulcer renal cyst pulmonary congestion Plan respiratory care reviewed imaging noted atropine as needed neb therapy as is off vent as able and use PRN Oxygen low flow Monitor labs for change monitor albumin levels aspiration precautions polymicrobial infection Patient is a DNR. No CPR. ICU care reviewed medications/laboratory data/nursing notes/ICU care reviewed in detail note reviewed and edited care discussed with RN and RT ICU time spent 39 minutes Subjective ROS Limited/Unobtainable: Yes Allergies: Coded Allergies: CODEINE (Verified Allergy, Unknown, HIVES, 09/15/09) Subjective respiratory care reviewed on atropine ICU care reviewed supportive care and ICU care reviewed RT care reviewed findings reviewed and discussed CXR noted Objective Last 24 Hour Vital Signs Date Time Temp Pulse Resp B/P (MAP) Pulse Ox O2 Delivery O2 Flow Rate FiO2 03/08/19 14:00 56 18 98/53 (68) 96 03/08/19 13:00 55 19 142/57 (85) 98 03/08/19 12:01 55 03/08/19 12:00 8.0 30 03/08/19 12:00 T-piece 8.0 03/08/19 12:00 97.7 60 20 129/44 (72) 100 03/08/19 11:49 59 18 100 T-Piece 6.0 28 63 23 100 03/08/19 11:00 82 21 140/67 (91) 98 03/08/19 10:23 70 20 100 T-Piece 6.0 28 72 23 98 03/08/19 10:00 87 21 132/95 (107) 98 03/08/19 09:13 101 164/65 03/08/19 09:00 101 20 164/65 (98) 99 03/08/19 08:01 80 03/08/19 08:00 8.0 30 03/08/19 08:00 97.8 76 20 150/60 (90) 100 03/08/19 08:00 T-piece 8.0 03/08/19 07:00 103 18 154/76 (102) 98 03/08/19 06:52 76 24 100 T-Piece 6.0 28 78 23 100 03/08/19 06:52 100 T-Piece 6.0 28 03/08/19 06:00 76 18 154/59 (90) 100 03/08/19 05:00 67 19 149/54 (85) 100 03/08/19 04:00 8.0 30 03/08/19 04:00 68 03/08/19 04:00 T-piece 8.0 03/08/19 04:00 97.9 67 20 145/52 (83) 100 03/08/19 03:07 61 20 100 T-Piece 6.0 28 63 20 100 03/08/19 03:00 64 19 154/60 (91) 100 03/08/19 02:00 63 18 155/55 (88) 100 03/08/19 01:12 100 T-Piece 6.0 28 03/08/19 01:00 66 17 158/62 (94) 100 03/08/19 00:00 71 03/08/19 00:00 98.0 65 17 150/66 (94) 100 03/08/19 00:00 T-piece 8.0 03/07/19 23:05 69 17 100 T-Piece 6.0 28 68 17 100 03/07/19 23:00 70 18 159/65 (96) 100 03/07/19 22:59 72 19 100 T-Piece 6.0 28 70 18 100 03/07/19 22:00 67 20 146/55 (85) 100 03/07/19 21:05 71 160/64 03/07/19 21:00 84 28 160/64 (96) 100 03/07/19 20:00 T-piece 8.0 03/07/19 20:00 68 03/07/19 20:00 69 15 122/50 (74) 100 03/07/19 20:00 8.0 30 03/07/19 19:10 100 T-Piece 6.0 28 03/07/19 19:10 71 20 100 T-Piece 6.0 28 70 20 100 03/07/19 19:00 97.9 72 21 147/58 (87) 100 03/07/19 18:00 71 20 141/67 (91) 100 03/07/19 17:00 93 23 157/64 (95) 100 03/07/19 16:00 T-piece 8.0 03/07/19 16:00 8.0 30 03/07/19 16:00 71 03/07/19 16:00 97.2 75 19 159/65 (96) 100 03/07/19 15:28 73 22 100 T-Piece 6.0 28 77 26 100 03/07/19 15:00 78 21 144/64 (90) 100 Intake and Output 03/07/19 03/08/19 19:00 07:00 Intake Total 563.75 ml 886.25 ml Output Total 200 ml Balance 563.75 ml 686.25 ml IV Total 563.75 ml 886.25 ml Output Urine Total 200 ml # Voids 2 Objective WDWN NAD contracted off vent reduced breath sounds bilaterally with occ rhonchi [id number] without MRG NABS nontender no HSM no CC minimal edema nonfocal nonverbal trach and gt reviewed and edited Microbiology Date/Time Source Procedure Growth Status 03/07/19 11:30 Sputum Gram Stain - Final Resulted 03/07/19 11:30 Sputum Sputum Culture Pending Resulted Laboratory Tests 03/08/19 04:00: White Blood Count 8.7, Red Blood Count 3.62L, Hemoglobin 9.8L, Hematocrit 31.0L , Mean Corpuscular Volume 86, Mean Corpuscular Hemoglobin 27.2, Mean Corpuscular Hemoglobin Concent 31.7L, Red Cell Distribution Width 16.5H, Platelet Count 192, Mean Platelet Volume 6.5, Neutrophils (%) (Auto) 39.2L, Lymphocytes (%) (Auto) 47.1H, Monocytes (%) (Auto) 6.2, Eosinophils (%) (Auto) 6.6H, Basophils (%) (Auto) 0.8, Sodium Level 142, Potassium Level 4.0, Chloride Level 106, Carbon Dioxide Level 28, Anion Gap 8, Blood Urea Nitrogen 29H, Creatinine 0.9, Estimat Glomerular Filtration Rate , Glucose Level 91, Calcium Level 9.2, Phosphorus Level 3.2, Magnesium Level 1.9, Total Bilirubin 0.3, Aspartate Amino Transf (AST/SGOT) 38H, Alanine Aminotransferase (ALT/SGPT) 39, Alkaline Phosphatase 96, C-Reactive Protein, Quantitative 1.7H, Pro-B-Type Natriuretic Peptide 140H, Total Protein 8.4H, Albumin 2.9L, Globulin 5.5, Albumin/Globulin Ratio 0.5L Current Medications Medications (Trade) Dose Ordered Sig/Maicol Route PRN Reason Start Time Stop Time Status Last Admin Dose Admin Acetylcysteine (Mucomyst) 200 mg Q4HRT HHN 02/28/19 03:00 03/29/19 16:59 03/08/19 11:49 Albuterol/ Ipratropium (Albuterol/ Ipratropium) 3 ml Q4H PRN HHN Shortness of Breath 03/04/19 23:30 03/09/19 23:29 03/08/19 11:49 Amikacin Sulfate (Amikin) 500 mg Q12HR@10,22 INH 03/07/19 11:00 03/14/19 10:59 03/08/19 10:23 Atropine Sulfate (Atropine Opth Adriana) 2 drop TID SL 03/07/19 09:00 04/06/19 08:59 03/08/19 12:17 Bacitracin (Bacitracin 15gm tube) 1 applic THREE TIMES A DAY TOPIC 02/28/19 18:30 03/30/19 18:29 03/08/19 12:17 Chlorhexidine Gluconate (Cesilia-Hex 2%) 1 applic DAILY@2000 TOPIC 02/18/19 20:00 03/12/19 19:59 03/07/19 21:04 Dextrose/Sodium Chloride 1,000 ml @ 75 mls/hr [id number] IV 03/07/19 11:15 04/06/19 11:14 03/08/19 12:17 Famotidine (Pepcid) 20 mg BID GT 03/02/19 18:00 04/01/19 17:59 03/08/19 09:13 Heparin Sodium (Porcine) (Heparin 5000 units/ml) 5,000 units EVERY 12 HOURS SUBQ 02/18/19 09:00 03/16/19 23:14 03/08/19 09:14 Hydralazine HCl (Apresoline) 25 mg Q4H PRN GT SBP above 160 02/18/19 05:46 03/09/19 05:45 03/02/19 04:02 Levetiracetam (Keppra) 750 mg Q12HR GT 02/18/19 09:00 03/16/19 23:29 03/08/19 09:12 Metoclopramide HCl (Reglan) 10 mg Q6H PRN IVP Nausea & Vomiting 02/18/19 05:46 03/09/19 05:45 03/07/19 02:45 Metoprolol Tartrate (Lopressor) 25 mg Q12HR GT 03/06/19 09:00 04/05/19 08:59 03/08/19 09:13 Amaury Chan MD Mar 08, 2019 15:01
--- NOTE | 2019-03-08 16:30 | Surgery Progress Note ---
Surgery Progress Note Subjective Additional Comments No acute events. Stable. Labs stable. Exam unchanged. Pending discharge placement Objective Last 24 Hour Vital Signs Date Time Temp Pulse Resp B/P (MAP) Pulse Ox O2 Delivery O2 Flow Rate FiO2 03/08/19 16:00 8.0 30 03/08/19 16:00 T-piece 8.0 03/08/19 16:00 97.7 54 19 141/72 (95) 100 03/08/19 15:05 64 18 100 T-Piece 6.0 28 63 23 98 03/08/19 15:00 61 21 99/53 (68) 100 03/08/19 14:00 56 18 98/53 (68) 96 03/08/19 13:15 100 T-Piece 6.0 28 03/08/19 13:00 55 19 142/57 (85) 98 03/08/19 12:01 55 03/08/19 12:00 8.0 30 03/08/19 12:00 T-piece 8.0 03/08/19 12:00 97.7 60 20 129/44 (72) 100 03/08/19 11:49 59 18 100 T-Piece 6.0 28 63 23 100 03/08/19 11:00 82 21 140/67 (91) 98 03/08/19 10:23 70 20 100 T-Piece 6.0 28 72 23 98 03/08/19 10:00 87 21 132/95 (107) 98 03/08/19 09:13 101 164/65 03/08/19 09:00 101 20 164/65 (98) 99 03/08/19 08:01 80 03/08/19 08:00 8.0 30 03/08/19 08:00 97.8 76 20 150/60 (90) 100 03/08/19 08:00 T-piece 8.0 03/08/19 07:00 103 18 154/76 (102) 98 03/08/19 06:52 76 24 100 T-Piece 6.0 28 78 23 100 03/08/19 06:52 100 T-Piece 6.0 28 03/08/19 06:00 76 18 154/59 (90) 100 03/08/19 05:00 67 19 149/54 (85) 100 03/08/19 04:00 8.0 30 03/08/19 04:00 68 03/08/19 04:00 T-piece 8.0 03/08/19 04:00 97.9 67 20 145/52 (83) 100 03/08/19 03:07 61 20 100 T-Piece 6.0 28 63 20 100 03/08/19 03:00 64 19 154/60 (91) 100 03/08/19 02:00 63 18 155/55 (88) 100 03/08/19 01:12 100 T-Piece 6.0 28 03/08/19 01:00 66 17 158/62 (94) 100 03/08/19 00:00 71 03/08/19 00:00 98.0 65 17 150/66 (94) 100 03/08/19 00:00 T-piece 8.0 03/07/19 23:05 69 17 100 T-Piece 6.0 28 68 17 100 03/07/19 23:00 70 18 159/65 (96) 100 03/07/19 22:59 72 19 100 T-Piece 6.0 28 70 18 100 03/07/19 22:00 67 20 146/55 (85) 100 03/07/19 21:05 71 160/64 03/07/19 21:00 84 28 160/64 (96) 100 03/07/19 20:00 T-piece 8.0 03/07/19 20:00 68 03/07/19 20:00 69 15 122/50 (74) 100 03/07/19 20:00 8.0 30 03/07/19 19:10 100 T-Piece 6.0 28 03/07/19 19:10 71 20 100 T-Piece 6.0 28 70 20 100 03/07/19 19:00 97.9 72 21 147/58 (87) 100 03/07/19 18:00 71 20 141/67 (91) 100 03/07/19 17:00 93 23 157/64 (95) 100 I&O Intake and Output 03/07/19 03/08/19 19:00 07:00 Intake Total 563.75 ml 886.25 ml Output Total 200 ml Balance 563.75 ml 686.25 ml IV Total 563.75 ml 886.25 ml Output Urine Total 200 ml # Voids 2 Dressing: other Wound: other Drains: other Cardiovascular: RSR Respiratory: decreased breath sounds Abdomen: soft, present bowel sounds, non-distended Extremities: edema, no cyanosis, other Laboratory Tests Test 03/08/19 04:00 White Blood Count 8.7 K/UL (4.8-10.8) Red Blood Count 3.62 M/UL (4.20-5.40) L Hemoglobin 9.8 G/DL (12.0-16.0) L Hematocrit 31.0 % (37.0-47.0) L Mean Corpuscular Volume 86 FL (80-99) Mean Corpuscular Hemoglobin 27.2 PG (27.0-31.0) Mean Corpuscular Hemoglobin Concent 31.7 G/DL (32.0-36.0) L Red Cell Distribution Width 16.5 % (11.6-14.8) H Platelet Count 192 K/UL (150-450) Mean Platelet Volume 6.5 FL (6.5-10.1) Neutrophils (%) (Auto) 39.2 % (45.0-75.0) L Lymphocytes (%) (Auto) 47.1 % (20.0-45.0) H Monocytes (%) (Auto) 6.2 % (1.0-10.0) Eosinophils (%) (Auto) 6.6 % (0.0-3.0) H Basophils (%) (Auto) 0.8 % (0.0-2.0) Sodium Level 142 MMOL/L (136-145) Potassium Level 4.0 MMOL/L (3.5-5.1) Chloride Level 106 MMOL/L (98-107) Carbon Dioxide Level 28 MMOL/L (21-32) Anion Gap 8 mmol/L (5-15) Blood Urea Nitrogen 29 mg/dL (7-18) H Creatinine 0.9 MG/DL (0.55-1.30) Estimat Glomerular Filtration Rate mL/min (>60) Glucose Level 91 MG/DL (74-106) Calcium Level 9.2 MG/DL (8.5-10.1) Phosphorus Level 3.2 MG/DL (2.5-4.9) Magnesium Level 1.9 MG/DL (1.8-2.4) Total Bilirubin 0.3 MG/DL (0.2-1.0) Aspartate Amino Transf (AST/SGOT) 38 U/L (15-37) H Alanine Aminotransferase (ALT/SGPT) 39 U/L (12-78) Alkaline Phosphatase 96 U/L (46-116) C-Reactive Protein, Quantitative 1.7 mg/dL (0.00-0.90) H Pro-B-Type Natriuretic Peptide 140 pg/mL (0-125) H Total Protein 8.4 G/DL (6.4-8.2) H Albumin 2.9 G/DL (3.4-5.0) L Globulin 5.5 g/dL Albumin/Globulin Ratio 0.5 (1.0-2.7) L Plan Problems: (1) Sacral decubitus ulcer Assessment & Plan: This is a 83-year-old female with multiple medical committees that is currently admitted for medical care and management and identified to have multiple wounds requiring care. On admission patient noted to have a resolved sacral decubitus ulcer. Has had prior care and is well-healed at this time. Will ensure it does not open up again. Patient has a right ischial decubitus ulcer that is resolved. Scar intact and well formed. Will monitor to ensure it does not open up again. Patient has a left ischial decubitus ulcer that can be identified to be stage IV with palpable bone that has been resolving as noted by the periwound tissue and scar but open area approximately 1 cm x 1.5 cm few millimeters deep to bone identified. Unsure if this is been to be completely healed prior and has since opened or if has been healing at this level. No foul odor no drainage was unsure local wound care until healed Bilateral heels soft without signs of injury Resolving pressure injury L ischium(L)1.8cm x (W)1cm.Scattered biofilm at base of wound. Edges flat and adherent with surrounding hyperpigmentation. No odor or exudate noted. Sacrum is pale pink with surrounding hyperpigmentation. Hyperpigmentation R ischium with small sheared area centrally.No areas of erythema or exudate noted. Both heels are soft but blanchable. Skin Assessed under collar of trach and no evidence of skin breakdown noted. All wound Tx. are effective and continued as ordered. Pt ahs an APM/Belén mattress overlay and is being repositioned per protocols and per tolerance.No new skin concerns noted. Full thickness pressure injury L Ischium with small amt biofilm (L)1.8cm x (W) 1cm. Surrounding pink hyperpigmentation. No odor or exudate noted. [place] hyperpigmentation from previous wound noted to sacrum. Pt also noted to have Cat 2 Skin Tear dorsal L hand, L 5th metatarsal extending into palm of hand. 80% skin flap in situ.Both heels are dry firm and blanchable. No other skin concerns noted. Cleanse Blister Dorsal and palm of L hand with saline. Versatel One Silicone Contact Layer(Applied). Apply Silvasorb Gel. Wrap with Kerlix Gauze.Change every 7 days and prn. Apply Moisture Barrier to sacrum. Cover with Optifoam drsg. Change every 3 days and prn. Cleanse L ischial wound with saline. Apply Therahoney. Apply Moisture Barrier Paste periwound. Cover with Optifoam drsg. Change every 3 days and prn. Apply Cavilon Skin Barrier to both heels. Cover each heel with Optifoam drsg. Change every 7 days and prn. APM/BELÉN Mattress overlay. Reposition at least every 2hours or as tolerated. Off-load heels with pillow. Nutritional optimization We will monitor follow with recommendations cont with above upon d/c (2) Sepsis Assessment & Plan: IV abx as per ID trend labs improving wounds unlikely etiology likely respiratory imaging noted and okay abnormal lft's stable PICC on Abx in ICU for desaturation CXR with consolidation Evidence of left lower lobe pneumonia, also previously demonstrated Gastrostomy in good position Mild diastasis of the rectus abdominis musculature again demonstrated Retrosacral decubitus changes, better depicted on prior exam which included the pelvis Small hiatal hernia with evidence of trace gastroesophageal reflux (3) Feeding by G-tube Assessment & Plan: DAILY ESTIMATED NEEDS: Needs based on Pulmonary, wounds, bedbound/ 60kg adj 25-28 kcals/kg 6545-8629 total kcals 1.25-2 g protein/kg 75-120 g total protein 25-30 mL/kg 5865-4291 total fluid mLs NUTRITION DIAGNOSIS: * Swallowing difficulty R/T respiratory status as evidenced by pt on T-collar, now back the vent, PEG dep, TF changed to low rate at this time due to episodes of vomiting + residuals. * Increased kcal/prot needs R/T wound healing as evidenced by BL buttocks and sacral wound photos, refer to WC reynaldo. (CURRENT TF:Glucerna 1.5 @35ml) ENTERAL NUTRITION RECOMMENDATIONS: VITAL AF 1.2 @ 55ml/hr x 24 hrs to provide 1320ml, 1584kcal, 99g prot, 1060ml free water - Once medically appropriate to resume TF, rec to initiate elemental and carb control formula of Vital 1.2 for possible improved tolerance - Initiate VITAL 1.2 @ 25ml/hr x 6hrs, advance 10ml q 4-6 hrs as tolerated to goal rate - Flush per MD/ HOB over 30 degrees ADDITIONAL RECOMMENDATIONS: 1) Re-calibrated bedscale wt for accurate CBW 2) Wound healing: Add Cristian 1pkt BID w/ improved Tf tolerace + MVI x1 daily 3) Monitor lytes, replete as needed (low Mg, K) 4) Monitor NPO status, ability to resume TF. -> held on and off due to vomiting since 02/02 5) SSI prn resume tube feeds (4) Chronic vegetative state Assessment & Plan: incontinence of urine and stool. can soil dressings. nurses doing great job with monitoring and changing prn (5) Leukocytosis Walter Madera Mar 08, 2019 16:30
--- NOTE | 2019-03-08 17:00 | NUR ---
NURSE NOTES: Bed bath provided by 2 staff.
--- NOTE | 2019-03-08 18:20 | NUR ---
NURSE NOTES: Stool specimen sent to lab. For stool culture and cdiff per order.
--- NOTE | 2019-03-08 18:46 | General Progress Note ---
Assessment/Plan Status: stable, progressing Assessment/Plan: Assessment - N/V, periodic, including suctioning of feeds from mouth - suspect due to gastroparesis - Have held off on G to J conversion per daughter request - message left with patient daughter to call to discuss - Elevated Alk phos / LFT - CT negative - abd U/S negative - check hepatitis serologies - negative - Anemia with OB (-) stools - Resp failure, s/p Trach - dysphagia, s/p PEG --> s/p GT change - OBS - minor GT tract inflammation / infection - poor Px Recommendations - laxative PRN - antibiotic ointment to GT site PRN - Resume feeds to prevent malnutrition - aspiration precautions - elevate HOB - PPI - d/w DTR Subjective Allergies: Coded Allergies: CODEINE (Verified Allergy, Unknown, HIVES, 09/15/09) Subjective seen in am d/w RN some secretions suctioned from trach no call back from DTR yet 2 messages left on her VM on different days Objective Last 24 Hour Vital Signs Date Time Temp Pulse Resp B/P (MAP) Pulse Ox O2 Delivery O2 Flow Rate FiO2 03/08/19 18:00 67 21 149/58 (88) 98 03/08/19 17:00 61 18 152/60 (90) 98 03/08/19 16:00 8.0 30 03/08/19 16:00 T-piece 8.0 03/08/19 16:00 97.7 54 19 141/72 (95) 100 03/08/19 15:59 59 03/08/19 15:05 64 18 100 T-Piece 6.0 28 63 23 98 03/08/19 15:00 61 21 99/53 (68) 100 03/08/19 14:00 56 18 98/53 (68) 96 03/08/19 13:15 100 T-Piece 6.0 28 03/08/19 13:00 55 19 142/57 (85) 98 03/08/19 12:01 55 03/08/19 12:00 8.0 30 03/08/19 12:00 T-piece 8.0 03/08/19 12:00 97.7 60 20 129/44 (72) 100 03/08/19 11:49 59 18 100 T-Piece 6.0 28 63 23 100 03/08/19 11:00 82 21 140/67 (91) 98 03/08/19 10:23 70 20 100 T-Piece 6.0 28 72 23 98 03/08/19 10:00 87 21 132/95 (107) 98 03/08/19 09:13 101 164/65 03/08/19 09:00 101 20 164/65 (98) 99 03/08/19 08:01 80 03/08/19 08:00 8.0 30 03/08/19 08:00 97.8 76 20 150/60 (90) 100 03/08/19 08:00 T-piece 8.0 03/08/19 07:00 103 18 154/76 (102) 98 03/08/19 06:52 76 24 100 T-Piece 6.0 28 78 23 100 03/08/19 06:52 100 T-Piece 6.0 28 03/08/19 06:00 76 18 154/59 (90) 100 03/08/19 05:00 67 19 149/54 (85) 100 03/08/19 04:00 8.0 30 03/08/19 04:00 68 03/08/19 04:00 T-piece 8.0 03/08/19 04:00 97.9 67 20 145/52 (83) 100 03/08/19 03:07 61 20 100 T-Piece 6.0 28 63 20 100 03/08/19 03:00 64 19 154/60 (91) 100 03/08/19 02:00 63 18 155/55 (88) 100 03/08/19 01:12 100 T-Piece 6.0 28 03/08/19 01:00 66 17 158/62 (94) 100 03/08/19 00:00 71 03/08/19 00:00 98.0 65 17 150/66 (94) 100 03/08/19 00:00 T-piece 8.0 03/07/19 23:05 69 17 100 T-Piece 6.0 28 68 17 100 03/07/19 23:00 70 18 159/65 (96) 100 03/07/19 22:59 72 19 100 T-Piece 6.0 28 70 18 100 03/07/19 22:00 67 20 146/55 (85) 100 03/07/19 21:05 71 160/64 03/07/19 21:00 84 28 160/64 (96) 100 03/07/19 20:00 T-piece 8.0 03/07/19 20:00 68 03/07/19 20:00 69 15 122/50 (74) 100 03/07/19 20:00 8.0 30 03/07/19 19:10 100 T-Piece 6.0 28 03/07/19 19:10 71 20 100 T-Piece 6.0 28 70 20 100 03/07/19 19:00 97.9 72 21 147/58 (87) 100 Intake and Output 03/07/19 03/08/19 19:00 07:00 Intake Total 563.75 ml 886.25 ml Output Total 200 ml Balance 563.75 ml 686.25 ml IV Total 563.75 ml 886.25 ml Output Urine Total 200 ml # Voids 2 Laboratory Tests 03/08/19 04:00: White Blood Count 8.7, Red Blood Count 3.62L, Hemoglobin 9.8L, Hematocrit 31.0L , Mean Corpuscular Volume 86, Mean Corpuscular Hemoglobin 27.2, Mean Corpuscular Hemoglobin Concent 31.7L, Red Cell Distribution Width 16.5H, Platelet Count 192, Mean Platelet Volume 6.5, Neutrophils (%) (Auto) 39.2L, Lymphocytes (%) (Auto) 47.1H, Monocytes (%) (Auto) 6.2, Eosinophils (%) (Auto) 6.6H, Basophils (%) (Auto) 0.8, Sodium Level 142, Potassium Level 4.0, Chloride Level 106, Carbon Dioxide Level 28, Anion Gap 8, Blood Urea Nitrogen 29H, Creatinine 0.9, Estimat Glomerular Filtration Rate , Glucose Level 91, Calcium Level 9.2, Phosphorus Level 3.2, Magnesium Level 1.9, Total Bilirubin 0.3, Aspartate Amino Transf (AST/SGOT) 38H, Alanine Aminotransferase (ALT/SGPT) 39, Alkaline Phosphatase 96, C-Reactive Protein, Quantitative 1.7H, Pro-B-Type Natriuretic Peptide 140H, Total Protein 8.4H, Albumin 2.9L, Globulin 5.5, Albumin/Globulin Ratio 0.5L Height (Feet): 5 Height (Inches): 5.00 Weight (Pounds): 180 Objective Debilitated AA woman NCAT (+) trach coarse ronchi RR obese abd, (+) GT no edema Celio Vaughan MD Mar 08, 2019 18:46
--- NOTE | 2019-03-08 19:20 | NUR ---
HAND-OFF: Report given to Umm Candelario RN.
--- NOTE | 2019-03-08 19:30 | NUR ---
LILY NOTES: Received report from Julia PAEZ. Patient obtunded, no moaning no facial grimaces. 02 sat 100% on t-piece Shiley 6 XLT @ 30%.G-tube feeding HOLD per MD. no residual. HOB elevated. Patient connected to [facility] [place]. PT has Right upper arm PICC double lumens no s/s of infiltration. Bilateral upper extremities contracted, bilateral lower extremities elevated, HOB raised for aspiration precautions, side rails padded for seizure precautions, code status of PT DNR w/ chemical code. Contact isolation and seizure precaution maintained and observed. Bed alarm on. bed locked and in low position. Call light within easy reach. Dressing intact on sacral and buttock Pressure sore. On P200 mattress for wound management. will continue plan of care.
--- NOTE | 2019-03-08 19:48 | NUR ---
NURSE NOTES: Daughter at bedside and updated regarding the patient condition
[2019-03-08] MEDS: Dyna-Hex 2% Top Sol 2oz TOPIC SCH (21:19)
--- NOTE | 2019-03-08 21:56 | NUR ---
NURSE NOTES: Dr. Hagen called back and made aware of patient daughter requesting to call MD to Discontinue medication due to episode of bradycardia on 03/06. Patients current HR 58. explained to daughter the importance v/s risk and benefits and side effect of medication metoprolol. Informed daughter that on 03/06 2022 patient HR was 95 BP 133/75 and on 03/07 2105 HR 71 BP 160/64 that why Metoprolol was given. Also informed patient daughter that the metoprolol have parameters to hold if HR is less than 60. per daughter it doesn't matter she still doesn't want the metoprolol given even the HR is 95. DR. Hagen D/C order per daughter request. CN made aware.
--- NOTE | 2019-03-08 23:00 | Progress Note ---
DATE: 03/07/2019 CARDIOLOGY PROGRESS NOTE Late entry for 03/07/2019 SUBJECTIVE: On trach collar. Frequent suctioning required. Monitor sinus. PHYSICAL EXAMINATION: VITAL SIGNS: Blood pressure 152/65, heart rate 82, and respiratory rate 27. LUNGS: Few rhonchi. CARDIAC: Regular. Normal S1 and S2. ABDOMEN: Soft. G-tube intact. EXTREMITIES: No edema. LABORATORY DATA: No new labs. IMPRESSION: 1. Respiratory failure. 2. Healthcare-acquired pneumonia. 3. Chronic diastolic congestive heart failure. 4. Cough. 5. Anemia, multifactorial, status post transfusion. PLAN: 1. Respiratory therapy. 2. Monitor hemoglobin. 3. Continue low-dose beta-martha. 4. No indication for diuretic therapy at this time. Bg Hagen M.D. DR: CHARLEE JOB#: [id number] CC:
[2019-03-09] VITALS (26 sets, daily range): BP systolic 102–168; BP diastolic 28–105
--- NOTE | 2019-03-09 | NUR ---
NURSE NOTES: Patient in bed no s/s of acute distress. daughter at bedside. turned and repositioned. Pt satting 100%. HOB elevated. GT clamped no residual. HR 58
--- NOTE | 2019-03-09 00:15 | Progress Note ---
DATE: 03/08/2019 CARDIOLOGY PROGRESS NOTE SUBJECTIVE: The patient had a single episode of slow heart rate several days ago. The patient's daughter has insisted that her beta-martha be discontinued. She was made aware that heart rates have been in the 70s and 80s and that the beta-martha is useful for heart failure management and suppression of atrial arrhythmias. However, she is not . PHYSICAL EXAMINATION: VITAL SIGNS: . NECK: Thin secretions. LUNGS: Coarse breath sounds. CARDIAC: Regular rhythm and rate. Normal S1, S2. ABDOMEN: Soft. G-tube intact. EXTREMITIES: Trace edema. IMPRESSION: 1. Chronic diastolic congestive heart failure. 2. Hypertensive heart disease. 3. Anemia, multifactorial. 4. symptomatic bradyarrhythmias noted. PLAN: 1. Continue current regimen. 2. No diuretic therapy. 3. Per family request, we will discontinue beta-martha. We will need to observe for rebound tachycardia and atrial arrhythmias. Bg Hagen M.D. DR: ALEXANDER JOB#: [id number] CC:
[2019-03-09] MEDS: D5 1/2NS 1,000 ML IV SCH ×2 (01:00→15:36)
--- NOTE | 2019-03-09 01:00 | NUR ---
NURSE NOTES: Bed bath given tolerated well. comfort measure provided. no fever. no n/v. will continue plan of care.
[2019-03-09] MEDS: HydrALAZINE 25mg tab GT PRN (02:58)
--- NOTE | 2019-03-09 02:58 | NUR ---
NURSE NOTES: Patient BP 168/51 HR 82 Hydralazine 25mg via GT given will continue to monitor patient.
[2019-03-09] MEDS: Acetylcysteine 20% Soln 4ml HHN SCH ×6 (03:13→23:18)
--- NOTE | 2019-03-09 04:00 | NUR ---
NURSE NOTES: Rechecked BP 119/28 HR 78. suctioned patient orally. turned and repositioned
--- NOTE | 2019-03-09 06:00 | NUR ---
NURSE NOTES: Patient in bed sleeping comfortably. oral care provided HOB elevated. Frequent visual checks continued.. frequent visual checks continued. no fever. Temp 98 axillary. comfort measure provided. will continue to monitor patient.
[2019-03-09] MEDS: Albuterol/Ipratropium 3ml neb HHN PRN ×5 (07:07→23:18)
--- NOTE | 2019-03-09 07:30 | NUR ---
NURSE NOTES: RECEIVED REPORT FROM TREVOR Ramos PT IN BED. VS: HR 82, BP 142/45, SP02 96, RR 24. PT NO S/S OF DISTRESS. NON VERBAL, OPENS EYES SPONTANEOUSLY, PUPILS 3MM, SLUGGISH. PT CONTRACTED UPPER EXTREMITIES. NSR ON MONITOR. MODERATE AMOUNT OF FROTHY WHITE TO [place] COLORED SECRETIONS. SUCTIONED PT AND T- PIECE. PT HAS WEAK COUGH. LUNG SOUNDS ON AUSCULTATION, RHONCHI BILATERAL, LEFT LOWER LOBE DIMINISHED. PUREWICK IN PLACE, DRAINING YELLOW URINE. ABDOMEN ROUND, FIRM ON LOWER QUADRANTS. G-TUBE IN PLACE. TUBE FEED ON HOLD UNTIL FURTHER NOTICE, DUE TO PT VOMITING EPISODE, ASPIRATION PRECAUTIONS, [id number]. NO BM AT THIS TIME. NON PITTING EDEMA OF UPPER EXTREMITIES. BILATERAL RADIAL AND PEDAL PULSES WEAK. CONTRACTED UPPER EXTREMITIES, FLACCID LOWER. CAP REFILL <3 SEC. SKIN-SEE ASSESSMENT. CONTACT AND SZ PRECAUTIONS IN PLACE. PT REPOSITIONED, ORAL CARE PROVIDED. EDUCATION ON PLAN OF CARE TODAY AND SIDE EFFECTS OF MEDICATION. WILL CONTINUE TO MONITOR PT.
--- NOTE | 2019-03-09 07:39 | NUR ---
NURSE NOTES: MD JIN HERE TO SEE PT. WAS INFORMED OF FAMILY CONCERN REGARDING LOPRESSOR, REFUSING MEDICATION. MADE AWARE. ORDER HAS ALREADY BEEN DISCONTINUED. PT HAS INCREASED SPUTUM PRODUCTION AND TUBE FEED HELD D/T VOMITING EPISODE PER PM RN. NO NEW ORDERS AT THIS TIME.
--- NOTE | 2019-03-09 07:39 | NUR ---
HAND-OFF: Report given to Yinka PAEZ.
--- NOTE | 2019-03-09 08:04 | Pulmonology Progress Note ---
Assessment/Plan Assessment/Plan Impression: Sepsis syndrome Pneumonia VDRF, Trach, G tube, Hypertension, Cardiac disease, Dementia, Previous CVA, Seizure disorder, Respiratory failure with hypoxia Anemia, worsened ? gib Sacral ulcer renal cyst pulmonary congestion Plan respiratory care reviewed imaging noted atropine as needed neb therapy as is inhaled amikacin bid off vent as able and use PRN Oxygen low flow Monitor labs and protein levels aspiration precautions polymicrobial infection noted presently without fevers Patient is a DNR. No CPR. ICU care reviewed medications/laboratory data/nursing notes/ICU care reviewed in detail note reviewed and edited care discussed with RN and RT ICU time spent 40 minutes Subjective ROS Limited/Unobtainable: Yes Allergies: Coded Allergies: CODEINE (Verified Allergy, Unknown, HIVES, 09/15/09) Subjective respiratory care reviewed on atropine and nebs ICU care reviewed inhaled amikacin RT care reviewed findings reviewed and discussed Objective Last 24 Hour Vital Signs Date Time Temp Pulse Resp B/P (MAP) Pulse Ox O2 Delivery O2 Flow Rate FiO2 03/09/19 07:03 98 T-Piece 6.0 28 03/09/19 07:02 95 22 99 T-Piece 6.0 28 97 19 97 03/09/19 07:00 87 22 136/36 (69) 97 03/09/19 06:00 82 27 151/37 (75) 100 03/09/19 05:00 101 18 140/59 (86) 96 03/09/19 04:00 78 21 119/28 (58) 98 03/09/19 04:00 T-piece 8.0 03/09/19 04:00 89 03/09/19 04:00 8.0 30 03/09/19 03:29 90 20 152/44 (80) 100 03/09/19 03:12 84 20 100 T-Piece 6.0 28 74 17 100 03/09/19 03:00 110 19 162/66 (98) 98 03/09/19 02:58 168/51 03/09/19 02:44 82 22 168/51 (90) 100 03/09/19 02:00 100 20 160/81 (107) 96 03/09/19 01:15 100 T-Piece 6.0 28 03/09/19 01:00 69 16 160/68 (98) 100 03/09/19 00:00 T-piece 8.0 03/09/19 00:00 8.0 30 03/09/19 00:00 57 03/09/19 00:00 98.0 60 19 151/62 (91) 100 03/08/19 23:50 57 20 100 T-Piece 6.0 28 61 22 100 03/08/19 23:00 67 20 149/59 (89) 100 03/08/19 22:37 70 20 100 T-Piece 6.0 28 64 20 100 03/08/19 22:00 61 18 105/43 (63) 99 03/08/19 21:59 61 03/08/19 21:00 60 19 138/61 (86) 100 03/08/19 20:00 8.0 30 03/08/19 20:00 97.8 66 20 145/56 (85) 100 03/08/19 20:00 T-piece 8.0 03/08/19 19:10 100 T-Piece 6.0 28 03/08/19 19:00 68 21 152/68 (96) 99 03/08/19 18:59 64 18 100 T-Piece 6.0 28 65 22 100 03/08/19 18:00 67 21 149/58 (88) 98 03/08/19 17:00 61 18 152/60 (90) 98 03/08/19 16:00 8.0 30 03/08/19 16:00 T-piece 8.0 03/08/19 16:00 97.7 54 19 141/72 (95) 100 03/08/19 15:59 59 03/08/19 15:05 64 18 100 T-Piece 6.0 28 63 23 98 03/08/19 15:00 61 21 99/53 (68) 100 03/08/19 14:00 56 18 98/53 (68) 96 03/08/19 13:15 100 T-Piece 6.0 28 03/08/19 13:00 55 19 142/57 (85) 98 03/08/19 12:01 55 03/08/19 12:00 8.0 30 03/08/19 12:00 T-piece 8.0 03/08/19 12:00 97.7 60 20 129/44 (72) 100 03/08/19 11:49 59 18 100 T-Piece 6.0 28 63 23 100 03/08/19 11:00 82 21 140/67 (91) 98 03/08/19 10:23 70 20 100 T-Piece 6.0 28 72 23 98 03/08/19 10:00 87 21 132/95 (107) 98 03/08/19 09:13 101 164/65 03/08/19 09:00 101 20 164/65 (98) 99 Intake and Output 03/08/19 03/09/19 18:59 06:59 Intake Total 878.75 ml 899 ml Output Total 250 ml 600 ml Balance 628.75 ml 299 ml IV Total 878.75 ml 899 ml Output Urine Total 250 ml 600 ml # Bowel Movements 1 Objective WDWN NAD contracted off vent reduced breath sounds bilaterally with occ rhonchi [id number] without MRG NABS nontender no HSM no CC minimal edema nonfocal nonverbal trach and gt reviewed and edited Microbiology Date/Time Source Procedure Growth Status 03/07/19 11:30 Sputum Gram Stain - Final Resulted 03/07/19 11:30 Sputum Culture - Preliminary Gram Negative Bacillus 1 Resulted Current Medications Medications (Trade) Dose Ordered Sig/Maicol Route PRN Reason Start Time Stop Time Status Last Admin Dose Admin Acetylcysteine (Mucomyst) 200 mg Q4HRT HHN 02/28/19 03:00 03/29/19 16:59 03/09/19 07:07 Albuterol/ Ipratropium (Albuterol/ Ipratropium) 3 ml Q4H PRN HHN Shortness of Breath 03/04/19 23:30 03/09/19 23:29 03/09/19 07:07 Amikacin Sulfate (Amikin) 500 mg Q12HR@, INH 03/07/19 11:00 03/14/19 10:59 03/08/19 22:00 Atropine Sulfate (Atropine Opth Adriana) 2 drop TID SL 03/07/19 09:00 04/06/19 08:59 03/08/19 18:11 Bacitracin (Bacitracin 15gm tube) 1 applic THREE TIMES A DAY TOPIC 02/28/19 18:30 03/30/19 18:29 03/08/19 18:11 Chlorhexidine Gluconate (Cesilia-Hex 2%) 1 applic DAILY@1999 TOPIC 02/18/19 20:00 03/12/19 19:59 03/08/19 21:19 Dextrose/Sodium Chloride 1,000 ml @ 75 mls/hr [id number] IV 03/07/19 11:15 04/06/19 11:14 03/09/19 01:00 Famotidine (Pepcid) 20 mg BID GT 03/02/19 18:00 04/01/19 17:59 03/08/19 18:11 Heparin Sodium (Porcine) (Heparin 5000 units/ml) 5,000 units EVERY 12 HOURS SUBQ 02/18/19 09:00 03/16/19 23:14 03/08/19 21:20 Levetiracetam (Keppra) 750 mg Q12HR GT 02/18/19 09:00 03/16/19 23:29 03/08/19 21:19 Amaury Chan MD Mar 09, 2019 08:04
[2019-03-09] MEDS: levETIRAcetam 500mg/5ml Liquid GT SCH ×2 (08:29→21:18)
[2019-03-09] MEDS: Bacitracin Oint 15gm Tube TOPIC SCH ×3 (08:30→17:49)
--- NOTE | 2019-03-09 08:34 | General Progress Note ---
Assessment/Plan Problem List: (1) Seizure ICD Codes: R56.9 - Unspecified convulsions SNOMED: 31000924 (2) Anemia ICD Codes: D64.9 - Anemia, unspecified SNOMED: 310907194 Qualifiers: Qualified Codes: D64.9 - Anemia, unspecified (3) Sepsis ICD Codes: A41.9 - Sepsis, unspecified organism SNOMED: 79552815, 083191239 Qualifiers: Qualified Codes: A41.9 - Sepsis, unspecified organism (4) Respiratory failure with hypoxia ICD Codes: J96.91 - Respiratory failure, unspecified with hypoxia SNOMED: 74681605602177654 Qualifiers: Qualified Codes: J96.21 - Acute and chronic respiratory failure with hypoxia (5) HCAP (healthcare-associated pneumonia) ICD Codes: J18.9 - Pneumonia, unspecified organism SNOMED: 498276288, 314829826 (6) Sacral decubitus ulcer ICD Codes: L89.159 - Pressure ulcer of sacral region, unspecified stage SNOMED: 279404928 (7) HTN (hypertension) ICD Codes: I10 - Essential (primary) hypertension SNOMED: 09544916 (8) Chronic vegetative state ICD Codes: R40.3 - Persistent vegetative state SNOMED: 00851303 (9) Chronic respiratory failure ICD Codes: J96.10 - Chronic respiratory failure, unspecified whether with hypoxia or hypercapnia SNOMED: 47123281 (10) Limited mobility ICD Codes: Z74.09 - Other reduced mobility SNOMED: 9244531 Status: stable, progressing Assessment/Plan: vent prn as needed resp rx suctioning as needed gt feeds with caution bowel regime monitor residuals sx rx monitor bp monitor cbc monitor for bleeding Subjective Allergies: Coded Allergies: CODEINE (Verified Allergy, Unknown, HIVES, 09/15/09) Subjective tolerating feeds. no congestion or vomiting. still with secretions but less. no fever or chills. poorly responsive at baseline on inhaled abx. dtr refusing b-martha Objective Last 24 Hour Vital Signs Date Time Temp Pulse Resp B/P (MAP) Pulse Ox O2 Delivery O2 Flow Rate FiO2 03/09/19 07:03 98 T-Piece 6.0 28 03/09/19 07:02 95 22 99 T-Piece 6.0 28 97 19 97 03/09/19 07:00 87 22 136/36 (69) 97 03/09/19 06:00 82 27 151/37 (75) 100 03/09/19 05:00 101 18 140/59 (86) 96 03/09/19 04:00 78 21 119/28 (58) 98 03/09/19 04:00 T-piece 8.0 03/09/19 04:00 89 03/09/19 04:00 8.0 30 03/09/19 03:29 90 20 152/44 (80) 100 03/09/19 03:12 84 20 100 T-Piece 6.0 28 74 17 100 03/09/19 03:00 110 19 162/66 (98) 98 03/09/19 02:58 168/51 03/09/19 02:44 82 22 168/51 (90) 100 03/09/19 02:00 100 20 160/81 (107) 96 03/09/19 01:15 100 T-Piece 6.0 28 03/09/19 01:00 69 16 160/68 (98) 100 03/09/19 00:00 T-piece 8.0 03/09/19 00:00 8.0 30 03/09/19 00:00 57 03/09/19 00:00 98.0 60 19 151/62 (91) 100 03/08/19 23:50 57 20 100 T-Piece 6.0 28 61 22 100 03/08/19 23:00 67 20 149/59 (89) 100 03/08/19 22:37 70 20 100 T-Piece 6.0 28 64 20 100 03/08/19 22:00 61 18 105/43 (63) 99 03/08/19 21:59 61 03/08/19 21:00 60 19 138/61 (86) 100 03/08/19 20:00 8.0 30 03/08/19 20:00 97.8 66 20 145/56 (85) 100 03/08/19 20:00 T-piece 8.0 03/08/19 19:10 100 T-Piece 6.0 28 03/08/19 19:00 68 21 152/68 (96) 99 03/08/19 18:59 64 18 100 T-Piece 6.0 28 65 22 100 03/08/19 18:00 67 21 149/58 (88) 98 03/08/19 17:00 61 18 152/60 (90) 98 03/08/19 16:00 8.0 30 03/08/19 16:00 T-piece 8.0 03/08/19 16:00 97.7 54 19 141/72 (95) 100 03/08/19 15:59 59 03/08/19 15:05 64 18 100 T-Piece 6.0 28 63 23 98 03/08/19 15:00 61 21 99/53 (68) 100 03/08/19 14:00 56 18 98/53 (68) 96 03/08/19 13:15 100 T-Piece 6.0 28 03/08/19 13:00 55 19 142/57 (85) 98 03/08/19 12:01 55 03/08/19 12:00 8.0 30 03/08/19 12:00 T-piece 8.0 03/08/19 12:00 97.7 60 20 129/44 (72) 100 03/08/19 11:49 59 18 100 T-Piece 6.0 28 63 23 100 03/08/19 11:00 82 21 140/67 (91) 98 03/08/19 10:23 70 20 100 T-Piece 6.0 28 72 23 98 03/08/19 10:00 87 21 132/95 (107) 98 03/08/19 09:13 101 164/65 03/08/19 09:00 101 20 164/65 (98) 99 Intake and Output 03/08/19 03/09/19 19:00 07:00 Intake Total 878.75 ml 899 ml Output Total 250 ml 600 ml Balance 628.75 ml 299 ml IV Total 878.75 ml 899 ml Output Urine Total 250 ml 600 ml # Bowel Movements 1 Height (Feet): 5 Height (Inches): 5.00 Weight (Pounds): 180 Objective General Appearance: WD/WN, confused. on trach collar Neck: supple Cardiovascular: normal rate, regular rhythm Respiratory/Chest: chest wall non-tender, rhonchi - bilaterally(minimal) Abdomen: normal bowel sounds, non tender, soft, no organomegaly Edema: no edema noted Arm (L), no edema noted Arm (R), no edema noted Leg (L), no edema noted Leg (R), no edema noted Pedal (L), no edema noted Pedal (R), no edema noted Generalized Neurologic: disoriented, unresponsive, aphasia Irvin Beltrán MD Mar 09, 2019 08:33
[2019-03-09] MEDS: Heparin 5000 units/ml inj SUBQ SCH ×2 (08:39→21:19)
[2019-03-09] MEDS: Amikacin for Inhalation 2ML INH SCH ×2 (09:18→21:17)
--- NOTE | 2019-03-09 10:42 | NUR ---
CASE MANAGEMENT:REVIEW 03/09/19 SI: SEPSIS. PNA SACRAL DECUB. CHRONIC RESP FAILURE 98.7 91 19 142/45 98% ON 8L/30% FIO2@ 100% ON T-PIECE VIA TRACH IS: IVF@75/HR AMIKACIN INH Q12HRS ATROPINE SL TID PEPCID GT BID MUCOMYST HHN Q4HRS HEPARIN SQ Q12 KEPPRA GT Q12 : ICU STATUS PLAN: MONITOR RESIDUAL ~ FEEDINGS ON HOLD FOR NOW
--- NOTE | 2019-03-09 10:51 | NUR ---
DISCHARGE PLANNING PATIENT HAS BEEN ACCEPTED BY THE FOLLOWING 2 SUB-ACUTE FACILITIES [facility]AC[facility] [address] [place] [id number] T: [phone] SPOKE WITH MEHDI ...THEY ARE WILLING TO ACCEPT [facility]AC[facility] [address] [phone] SPOKE WITH STANLEY...THEY ARE WILLING TO ACCEPT [facility] ~ DAUGHTER IS REFUSING [facility] ~ DECLINED TO ACCEPT [facility] ~ NO BEDS PER CONVERSATION ON SATURDAY ~ DAUGHTER WAS SUPPOSE TO GO VISIT THE ABOVE 2 FACILITIES AND ALSO RADHA SPOKE WITH PATIENT'S DAUGHTER THIS MORNING, STEPHANIE HEENA T: [phone]. ASKED IF SHE HAD DECIDED ON A FACILITY...DAUGHTER BECAME VERY UPSET WHEN THIS SUPERINTENDENT QUARRY EXPLAINED THAT EVEN THOUGH HER MOTHER MAY NOT BE TOLERATING FEEDING AT THIS TIME SHE STILL NEEDS TO DECIDE ON AN FACILITY FOR HER MOTHER TO DISCHARGE TO. DAUGHTER BECAME VERY UPSET AND ASKED TO SPEAK WITH MY [employer]OR...PROVIDED PHONE NUMBER DISCUSSED THE ABOVE WITH DR CABA
--- NOTE | 2019-03-09 11:00 | NUR ---
HAND-OFF: Report given to HALINA PAEZ. PT IN NO ACUTE DISTRESS.
--- NOTE | 2019-03-09 11:15 | NUR ---
NURSE NOTES: Pt received from JEANNINE Miller in stable condition without cardiopulmonary distress. Pt is awake in bed, opens eyes spontaneously but does not track or follow commands. Pt's pupils are both 3 mm in diameter and reactive to light. Pt is in SR on equipment processor with HR of 96 bpm. Skin alterations noted. GT noted clamped at this time, per Angela, Dr. Vaughan came to see pt today and is aware feedings are held, no residuals noted at this time. Pt has a purewick suctioning yellow, clear urine, 600 cc observed in drainage container. Pt has a trache connected to T-piece with 6L O2 at 25% FiO2. Pt's spO2 noted 100%. Lung sounds noted with crackles all lobes. Pt has copious thin secretions and suctioned. Pt has a JOSY PICC running D5 1/2 NS at 75cc/hr. Radial and dorsalis pedis pulses noted bounding. Bed is in lowest position, alarm on, side rails up x 2 and padded per seizure precaution, call light within reach. Will continue to monitor pt and follow care plan. Addendum: 03/09/19 at 1302 by Sandy Chi RN Amendment: 850 cc noted in urine drainage container.
--- NOTE | 2019-03-09 11:45 | NUR ---
NURSE NOTES: Wound care and dressing changes completed for today.
--- NOTE | 2019-03-09 12:00 | NUR ---
NURSE NOTES: Spoke with Dr. Vaughan regarding pt's NPO status. Per Dr. Vaughan, pt for possible G to J tube conversion.
--- NOTE | 2019-03-09 12:02 | Nephrology Progress Note ---
Assessment/Plan Problem List: (1) Acute renal failure (ARF) Assessment: Cr stable (2) Chronic respiratory failure (3) Anemia (4) Sepsis Assessment Acute renal failure Respiratory failure - Trach Low Mag- Low k , Low Na Anemia UTI / Sepsis Proteinuria / HypoAlbuminemia high Trigs Sz decubs bed bound DNR Plan no labs today bolus Albumin as needed K and Mag and Phos supplement as needed Hydrate as needed Urine studies avoid Nephrotoxics mag K Phos supplements as needed monitor renal parameters Subjective ROS Limited/Unobtainable: No Objective Objective Last 24 Hour Vital Signs Date Time Temp Pulse Resp B/P (MAP) Pulse Ox O2 Delivery O2 Flow Rate FiO2 03/09/19 11:44 81 28 100 T-Piece 6.0 28 80 27 97 03/09/19 11:00 78 22 139/69 (92) 99 03/09/19 10:00 87 23 133/52 (79) 100 03/09/19 09:17 88 19 100 T-Piece 6.0 28 87 22 100 03/09/19 09:00 84 25 135/46 (75) 99 03/09/19 08:00 T-piece 8.0 03/09/19 08:00 77 03/09/19 08:00 8.0 30 03/09/19 08:00 98.7 91 19 142/45 (77) 98 03/09/19 07:03 98 T-Piece 6.0 28 03/09/19 07:02 95 22 99 T-Piece 6.0 28 97 19 97 03/09/19 07:00 87 22 136/36 (69) 97 03/09/19 06:00 82 27 151/37 (75) 100 03/09/19 05:00 101 18 140/59 (86) 96 03/09/19 04:00 78 21 119/28 (58) 98 03/09/19 04:00 T-piece 8.0 03/09/19 04:00 89 03/09/19 04:00 8.0 30 03/09/19 03:29 90 20 152/44 (80) 100 03/09/19 03:12 84 20 100 T-Piece 6.0 28 74 17 100 03/09/19 03:00 110 19 162/66 (98) 98 03/09/19 02:58 168/51 03/09/19 02:44 82 22 168/51 (90) 100 03/09/19 02:00 100 20 160/81 (107) 96 03/09/19 01:15 100 T-Piece 6.0 28 03/09/19 01:00 69 16 160/68 (98) 100 03/09/19 00:00 T-piece 8.0 03/09/19 00:00 8.0 30 03/09/19 00:00 57 03/09/19 00:00 98.0 60 19 151/62 (91) 100 03/08/19 23:50 57 20 100 T-Piece 6.0 28 61 22 100 03/08/19 23:00 67 20 149/59 (89) 100 03/08/19 22:37 70 20 100 T-Piece 6.0 28 64 20 100 03/08/19 22:00 61 18 105/43 (63) 99 03/08/19 21:59 61 03/08/19 21:00 60 19 138/61 (86) 100 03/08/19 20:00 8.0 30 03/08/19 20:00 97.8 66 20 145/56 (85) 100 03/08/19 20:00 T-piece 8.0 03/08/19 19:10 100 T-Piece 6.0 28 03/08/19 19:00 68 21 152/68 (96) 99 03/08/19 18:59 64 18 100 T-Piece 6.0 28 65 22 100 03/08/19 18:00 67 21 149/58 (88) 98 03/08/19 17:00 61 18 152/60 (90) 98 03/08/19 16:00 8.0 30 03/08/19 16:00 T-piece 8.0 03/08/19 16:00 97.7 54 19 141/72 (95) 100 03/08/19 15:59 59 03/08/19 15:05 64 18 100 T-Piece 6.0 28 63 23 98 03/08/19 15:00 61 21 99/53 (68) 100 03/08/19 14:00 56 18 98/53 (68) 96 03/08/19 13:15 100 T-Piece 6.0 28 03/08/19 13:00 55 19 142/57 (85) 98 Intake and Output 03/08/19 03/09/19 19:00 07:00 Intake Total 878.75 ml 899 ml Output Total 250 ml 600 ml Balance 628.75 ml 299 ml IV Total 878.75 ml 899 ml Output Urine Total 250 ml 600 ml # Bowel Movements 1 Height (Feet): 5 Height (Inches): 5.00 Weight (Pounds): 180 General Appearance: no apparent distress EENT: other - trach Cardiovascular: normal rate Respiratory/Chest: decreased breath sounds Abdomen: soft Objective no change Eric oCrtez MD Mar 09, 2019 12:02
--- NOTE | 2019-03-09 12:58 | NUR ---
NURSE NOTES: Pt repositioned, oral care provided and pt suctioned. Pt in no cute distress at this time and is asleep. Will continue to monitor.
--- NOTE | 2019-03-09 13:00 | NUR ---
NURSE NOTES: Pt repositioned and in no acute distress at this time. Pt suctioned per RT. VS ntoed stable and charted. Will continue to monitor.
--- NOTE | 2019-03-09 14:41 | Surgery Progress Note ---
Surgery Progress Note Subjective Additional Comments pending placement exam stable comfortable appearing Objective Last 24 Hour Vital Signs Date Time Temp Pulse Resp B/P (MAP) Pulse Ox O2 Delivery O2 Flow Rate FiO2 03/09/19 13:00 83 21 102/51 (68) 99 03/09/19 12:45 100 T-Piece 6.0 28 03/09/19 12:00 T-piece 6.0 03/09/19 12:00 78 03/09/19 12:00 8.0 28 03/09/19 12:00 98.1 77 24 138/45 (76) 100 03/09/19 11:44 81 28 100 T-Piece 6.0 28 80 27 97 03/09/19 11:00 78 22 139/69 (92) 99 03/09/19 10:00 87 23 133/52 (79) 100 03/09/19 09:17 88 19 100 T-Piece 6.0 28 87 22 100 03/09/19 09:00 84 25 135/46 (75) 99 03/09/19 08:00 T-piece 8.0 03/09/19 08:00 77 03/09/19 08:00 8.0 30 03/09/19 08:00 98.7 91 19 142/45 (77) 98 03/09/19 07:03 98 T-Piece 6.0 28 03/09/19 07:02 95 22 99 T-Piece 6.0 28 97 19 97 03/09/19 07:00 87 22 136/36 (69) 97 03/09/19 06:00 82 27 151/37 (75) 100 03/09/19 05:00 101 18 140/59 (86) 96 03/09/19 04:00 78 21 119/28 (58) 98 03/09/19 04:00 T-piece 8.0 03/09/19 04:00 89 03/09/19 04:00 8.0 30 03/09/19 03:29 90 20 152/44 (80) 100 03/09/19 03:12 84 20 100 T-Piece 6.0 28 74 17 100 03/09/19 03:00 110 19 162/66 (98) 98 03/09/19 02:58 168/51 03/09/19 02:44 82 22 168/51 (90) 100 03/09/19 02:00 100 20 160/81 (107) 96 03/09/19 01:15 100 T-Piece 6.0 28 03/09/19 01:00 69 16 160/68 (98) 100 03/09/19 00:00 T-piece 8.0 03/09/19 00:00 8.0 30 03/09/19 00:00 57 03/09/19 00:00 98.0 60 19 151/62 (91) 100 03/08/19 23:50 57 20 100 T-Piece 6.0 28 61 22 100 03/08/19 23:00 67 20 149/59 (89) 100 03/08/19 22:37 70 20 100 T-Piece 6.0 28 64 20 100 03/08/19 22:00 61 18 105/43 (63) 99 03/08/19 21:59 61 03/08/19 21:00 60 19 138/61 (86) 100 03/08/19 20:00 8.0 30 03/08/19 20:00 97.8 66 20 145/56 (85) 100 03/08/19 20:00 T-piece 8.0 03/08/19 19:10 100 T-Piece 6.0 28 03/08/19 19:00 68 21 152/68 (96) 99 03/08/19 18:59 64 18 100 T-Piece 6.0 28 65 22 100 03/08/19 18:00 67 21 149/58 (88) 98 03/08/19 17:00 61 18 152/60 (90) 98 03/08/19 16:00 8.0 30 03/08/19 16:00 T-piece 8.0 03/08/19 16:00 97.7 54 19 141/72 (95) 100 03/08/19 15:59 59 03/08/19 15:05 64 18 100 T-Piece 6.0 28 63 23 98 03/08/19 15:00 61 21 99/53 (68) 100 I&O Intake and Output 03/08/19 03/09/19 19:00 07:00 Intake Total 878.75 ml 899 ml Output Total 250 ml 600 ml Balance 628.75 ml 299 ml IV Total 878.75 ml 899 ml Output Urine Total 250 ml 600 ml # Bowel Movements 1 Dressing: other Wound: clean, other Drains: other Cardiovascular: RSR Respiratory: decreased breath sounds Abdomen: soft, present bowel sounds Extremities: no cyanosis, other Plan Problems: (1) Sacral decubitus ulcer Assessment & Plan: This is a 83-year-old female with multiple medical committees that is currently admitted for medical care and management and identified to have multiple wounds requiring care. On admission patient noted to have a resolved sacral decubitus ulcer. Has had prior care and is well-healed at this time. Will ensure it does not open up again. Patient has a right ischial decubitus ulcer that is resolved. Scar intact and well formed. Will monitor to ensure it does not open up again. Patient has a left ischial decubitus ulcer that can be identified to be stage IV with palpable bone that has been resolving as noted by the periwound tissue and scar but open area approximately 1 cm x 1.5 cm few millimeters deep to bone identified. Unsure if this is been to be completely healed prior and has since opened or if has been healing at this level. No foul odor no drainage was unsure local wound care until healed Bilateral heels soft without signs of injury Resolving pressure injury L ischium(L)1.8cm x (W)1cm.Scattered biofilm at base of wound. Edges flat and adherent with surrounding hyperpigmentation. No odor or exudate noted. Sacrum is pale pink with surrounding hyperpigmentation. Hyperpigmentation R ischium with small sheared area centrally.No areas of erythema or exudate noted. Both heels are soft but blanchable. Skin Assessed under collar of trach and no evidence of skin breakdown noted. All wound Tx. are effective and continued as ordered. Pt ahs an APM/Belén mattress overlay and is being repositioned per protocols and per tolerance.No new skin concerns noted. Full thickness pressure injury L Ischium with small amt biofilm (L)1.8cm x (W) 1cm. Surrounding pink hyperpigmentation. No odor or exudate noted. Malo hyperpigmentation from previous wound noted to sacrum. Pt also noted to have Cat 2 Skin Tear dorsal L hand, L 5th metatarsal extending into palm of hand. 80% skin flap in situ.Both heels are dry firm and blanchable. No other skin concerns noted. Cleanse Blister Dorsal and palm of L hand with saline. Versatel One Silicone Contact Layer(Applied). Apply Silvasorb Gel. Wrap with Kerlix Gauze.Change every 7 days and prn. Apply Moisture Barrier to sacrum. Cover with Optifoam drsg. Change every 3 days and prn. Cleanse L ischial wound with saline. Apply Therahoney. Apply Moisture Barrier Paste periwound. Cover with Optifoam drsg. Change every 3 days and prn. Apply Cavilon Skin Barrier to both heels. Cover each heel with Optifoam drsg. Change every 7 days and prn. APM/BELÉN Mattress overlay. Reposition at least every 2hours or as tolerated. Off-load heels with pillow. Nutritional optimization We will monitor follow with recommendations cont with above upon d/c (2) Sepsis Assessment & Plan: IV abx as per ID trend labs improving wounds unlikely etiology likely respiratory imaging noted and okay abnormal lft's stable PICC on Abx in ICU for desaturation CXR with consolidation Evidence of left lower lobe pneumonia, also previously demonstrated Gastrostomy in good position Mild diastasis of the rectus abdominis musculature again demonstrated Retrosacral decubitus changes, better depicted on prior exam which included the pelvis Small hiatal hernia with evidence of trace gastroesophageal reflux (3) Feeding by G-tube Assessment & Plan: DAILY ESTIMATED NEEDS: Needs based on Pulmonary, wounds, bedbound/ 60kg adj 25-28 kcals/kg 5014-0553 total kcals 1.25-2 g protein/kg 75-120 g total protein 25-30 mL/kg 0774-6471 total fluid mLs NUTRITION DIAGNOSIS: * Swallowing difficulty R/T respiratory status as evidenced by pt on T-collar, now back the vent, PEG dep, TF changed to low rate at this time due to episodes of vomiting + residuals. * Increased kcal/prot needs R/T wound healing as evidenced by BL buttocks and sacral wound photos, refer to WC reynaldo. (CURRENT TF:Glucerna 1.5 @35ml) ENTERAL NUTRITION RECOMMENDATIONS: VITAL AF 1.2 @ 55ml/hr x 24 hrs to provide 1320ml, 1584kcal, 99g prot, 1060ml free water - Once medically appropriate to resume TF, rec to initiate elemental and carb control formula of Vital 1.2 for possible improved tolerance - Initiate VITAL 1.2 @ 25ml/hr x 6hrs, advance 10ml q 4-6 hrs as tolerated to goal rate - Flush per MD/ HOB over 30 degrees ADDITIONAL RECOMMENDATIONS: 1) Re-calibrated bedscale wt for accurate CBW 2) Wound healing: Add Cristian 1pkt BID w/ improved Tf tolerace + MVI x1 daily 3) Monitor lytes, replete as needed (low Mg, K) 4) Monitor NPO status, ability to resume TF. -> held on and off due to vomiting since 02/02 5) SSI prn resume tube feeds (4) Chronic vegetative state Assessment & Plan: incontinence of urine and stool. can soil dressings. nurses doing great job with monitoring and changing prn (5) Leukocytosis Walter [place]era Mar 09, 2019 14:41
--- NOTE | 2019-03-09 15:36 | NUR ---
NURSE NOTES: Oral care provided and D5 1/2NS IV bag replaced. Will continue to monitor.
--- NOTE | 2019-03-09 17:15 | NUR ---
NURSE NOTES: Pt cleaned and repositioned. 1 small smear of brown soft BM noted. Oral care provided. VS noted stable and charted. Pt in no acute distress. Will continue to monitor.
--- NOTE | 2019-03-09 19:23 | NUR ---
HAND-OFF: Report given to JEANNINE Panchal. Pt in stable condition and in no acute distress.
--- NOTE | 2019-03-09 19:25 | NUR ---
NURSE NOTES: Report received from JEANNINE Delgado. Observed pt lying in the bed. Obtunded. No signs of pain noted. SR on manager cardiac cath. On T-piec, FIO2 28%, saturating at 100%. GT intact, npo status noted. IV on R UA PICC running D5 1/2 NS at 75cc/hr. Bed in the lowest position. Side rails up and padded. Will continue to monitor.
--- NOTE | 2019-03-09 19:33 | NUR ---
RESPIRATORY NOTE: Received pt on 28% Cool Aerosol via T-Piece. Pt is trach-dependent w/ a cuffed, Shiley 6 XLT tube. Cuff currently deflated. Pt is asleep/flat effect, responds to stimuli. B/S flory. rhonchi/diminished, sxn small to moderate amounts of thick/thin/frothy, pale-yellow secretions. Vent on standby at bedside, plugged into red outlet. Ambubag at bedside. Pt resting comfortably, in no apparent distress at this time. Will continue to monitor pt.
[2019-03-09] MEDS: Dyna-Hex 2% Top Sol 2oz TOPIC SCH (21:18)
[2019-03-09] MEDS ORDERED: D5 1/2NS 1000ml IV ONE (21:44)
--- NOTE | 2019-03-09 22:01 | NUR ---
NURSE NOTES: No acute distress noted at this time. Pt lying in the bed. VS WNL. Tolerating well with Tpiece. Reposition done. Oral care given. Will continue to monitor.
[2019-03-10] VITALS (24 sets, daily range): BP systolic 86–161; BP diastolic 30–83
--- NOTE | 2019-03-10 | NUR ---
NURSE NOTES: No acute distress noted at this time. Pt sleeping calm and comfortable. Reposition done. Bed bath given. SR on telemetry monitor. Will continue to monitor.
--- NOTE | 2019-03-10 01:54 | General Progress Note ---
Assessment/Plan Status: stable, progressing Assessment/Plan: Assessment - N/V, periodic, including suctioning of feeds from mouth - suspect due to gastroparesis, possibly also from suctioning reflex - DTR declines GJ conversion. - will Rx with reglan, short term - suction gently - Elevated Alk phos / LFT - CT negative - abd U/S negative - check hepatitis serologies - negative - Anemia with OB (-) stools - Resp failure, s/p Trach - dysphagia, s/p PEG --> s/p GT change - OBS - minor GT tract inflammation / infection - poor Px Recommendations - laxative PRN - antibiotic ointment to GT site PRN - Resume feeds to prevent malnutrition - aspiration precautions - elevate HOB - PPI - d/w DTR Subjective Allergies: Coded Allergies: CODEINE (Verified Allergy, Unknown, HIVES, 09/15/09) Subjective seen in am d/w DTR late evening advised DTR recurrent TF regurgitation and suctioning of TF from mouth advised DTR re inability to feed consistently, risk for PNA, and malnutrition advised DTR re my recommendation to convert to GJ tube DTR declined GJ tube says it did not work at [facility] says patient vomits due to gagging with suctioning (and I reminded her that GJ should help in this case also) DTR requests that I continue TF and hold PRN emesis She will get back to me if she agrees to GJ tube (delayed entry note - patient seen 03/09/19) Objective Last 24 Hour Vital Signs Date Time Temp Pulse Resp B/P (MAP) Pulse Ox O2 Delivery O2 Flow Rate FiO2 03/10/19 00:56 99 T-Piece 6.0 28 03/10/19 00:00 T-piece 6.0 03/10/19 00:00 6.0 28 03/10/19 00:00 78 03/09/19 23:33 85 22 99 T-Piece 6.0 28 03/09/19 23:18 85 24 99 T-Piece 6.0 28 03/09/19 22:00 75 21 140/33 (68) 100 03/09/19 21:27 74 21 100 T-Piece 6.0 28 03/09/19 21:17 75 24 100 T-Piece 6.0 28 03/09/19 21:00 77 21 122/30 (60) 100 03/09/19 20:00 T-piece 6.0 03/09/19 20:00 6.0 28 03/09/19 20:00 75 03/09/19 20:00 97.8 74 18 137/47 (77) 100 03/09/19 19:45 84 21 100 T-Piece 6.0 28 03/09/19 19:30 100 T-Piece 6.0 28 03/09/19 19:30 78 17 100 T-Piece 6.0 28 03/09/19 19:00 83 19 131/48 (75) 100 03/09/19 18:00 83 19 159/42 (81) 100 03/09/19 17:00 81 17 118/54 (75) 100 03/09/19 16:00 T-piece 6.0 03/09/19 16:00 8.0 30 03/09/19 16:00 94 03/09/19 16:00 98.1 81 20 148/105 (119) 99 03/09/19 15:00 73 21 121/44 (69) 100 03/09/19 14:44 78 22 100 T-Piece 6.0 28 77 22 100 03/09/19 14:00 81 19 120/56 (77) 100 03/09/19 13:00 83 21 102/51 (68) 99 03/09/19 12:45 100 T-Piece 6.0 28 03/09/19 12:00 T-piece 6.0 03/09/19 12:00 78 03/09/19 12:00 8.0 28 03/09/19 12:00 98.1 77 24 138/45 (76) 100 03/09/19 11:44 81 28 100 T-Piece 6.0 28 80 27 97 03/09/19 11:00 78 22 139/69 (92) 99 03/09/19 10:00 87 23 133/52 (79) 100 03/09/19 09:17 88 19 100 T-Piece 6.0 28 87 22 100 03/09/19 09:00 84 25 135/46 (75) 99 03/09/19 08:00 T-piece 8.0 03/09/19 08:00 77 03/09/19 08:00 8.0 30 03/09/19 08:00 98.7 91 19 142/45 (77) 98 03/09/19 07:03 98 T-Piece 6.0 28 03/09/19 07:02 95 22 99 T-Piece 6.0 28 97 19 97 03/09/19 07:00 87 22 136/36 (69) 97 03/09/19 06:00 82 27 151/37 (75) 100 03/09/19 05:00 101 18 140/59 (86) 96 03/09/19 04:00 78 21 119/28 (58) 98 03/09/19 04:00 T-piece 8.0 03/09/19 04:00 89 03/09/19 04:00 8.0 30 03/09/19 03:29 90 20 152/44 (80) 100 03/09/19 03:12 84 20 100 T-Piece 6.0 28 74 17 100 03/09/19 03:00 110 19 162/66 (98) 98 03/09/19 02:58 168/51 03/09/19 02:44 82 22 168/51 (90) 100 03/09/19 02:00 100 20 160/81 (107) 96 Intake and Output 03/09/19 03/10/19 19:00 07:00 Intake Total 915 ml 360 ml Output Total 500 ml Balance 415 ml 360 ml Free Water 30 ml 60 ml IV Total 855 ml 300 ml Tube Feeding 0 ml Other 30 ml Output Urine Total 500 ml # Bowel Movements 1 Height (Feet): 5 Height (Inches): 5.00 Weight (Pounds): 180 Objective Debilitated AA woman NCAT (+) trach coarse ronchi RR obese abd, (+) GT no edema Celio Vaughan MD Mar 10, 2019 01:53
--- NOTE | 2019-03-10 02:14 | NUR ---
NURSE NOTES: Tube feeding started, glucerna 1.5 at 10cc/hr, no residual noted, no vomit noted. No distress noted at this time. Will continue to monitor.
--- NOTE | 2019-03-10 02:15 | Progress Note ---
DATE: 03/09/2019 CARDIOLOGY PROGRESS NOTE SUBJECTIVE: Per the patient's daughter's insistence, beta-martha was discontinued yesterday. The patient remains on trach collar. OBJECTIVE: VITAL SIGNS: Blood pressure 140/59, pulse 101, respirations 18. LUNGS: Bilateral breath sounds. Few rhonchi. CARDIAC: Regular rhythm and rate. Normal S1, S2 with no new murmur appreciated. ABDOMEN: Soft. G-tube intact. EXTREMITIES: Trace dependent edema. LABORATORY DATA: White count 8.7, hemoglobin 9.8. Magnesium 1.9 yesterday. IMPRESSION: 1. Respiratory failure. 2. Sepsis. 3. Healthcare-acquired pneumonia. 4. Chronic diastolic congestive heart failure. 5. Evme-pc-tttyiasb protein-calorie malnutrition. 6. Advanced dementia. 7. Hypertriglyceridemia. 8. Anemia, status post transfusions. 9. Hypomagnesemia, hypokalemia, and hyponatremia, corrected. PLAN: 1. Replace electrolytes as needed. 2. Nutritional support by feeding tube. 3. No role for albumin infusion at this time. 4. No role for diuretics at this time. 5. Observe for rebound tachyarrhythmias, beta blockade. Bg Hagen M.D. DR: SHIRA JOB#: [id number] CC:
[2019-03-10] MEDS: Metoclopramide 10mg/2ml Inj IVP SCH ×4 (02:27→20:17)
[2019-03-10] MEDS: Acetylcysteine 20% Soln 4ml HHN SCH ×6 (03:06→23:30)
[2019-03-10] MEDS: Albuterol/Ipratropium 3ml neb HHN SCH ×6 (03:06→23:30)
[2019-03-10] MEDS: D5 1/2NS 1,000 ML IV SCH ×2 (03:44→16:18)
--- NOTE | 2019-03-10 04:00 | NUR ---
NURSE NOTES: No distress noted at this time. VS WNL. GT intact and no residual noted, running Glucerna 1.5 at 10cc/hr. Goal is 35cc/hr. Will continue to monitor.
--- NOTE | 2019-03-10 06:22 | NUR ---
NURSE NOTES: Noted pt vomit x1. Feeding stopped per MD order.
--- NOTE | 2019-03-10 07:07 | NUR ---
DISCHARGE PLANNING PATIENT HAS BEEN ACCEPTED BY THE FOLLOWING 3 SUB-ACUTE FACILITIES 1) [facility] SUBACUTE [address] [place] [id number] T: [phone] SPOKE WITH MEHDI ...THEY ARE WILLING TO ACCEPT 2) [facility] SUBACUTE [address] T: [phone] SPOKE WITH STANLEY...THEY ARE WILLING TO ACCEPT [facility] ~ ACCEPTED PATIENT BUT DAUGHTER IS REFUSED BECAUSE HER FATHER AT [facility] OFFERED OTHER OSMANY LOCATIONS BUT [facility]UGH[facility]ID [facility]CLINED TO [facility]PT [facility] ~ NO BEDS [facility] ~ HAS REPEATEDLY DECLINED TO ACCEPT ...NO MATTER WHAT PER CONVERSATION ON SATURDAY ~ DAUGHTER WAS SUPPOSE TO GO VISIT THE ABOVE FACILITIES 1 & 2 AND ALSO [facility]....SHE DID NOT RECEIVED CALL YESTERDAY FROM TOSHIA AT DR SEQUEIRA'S OFFICE STATING THAT DR INGRAM CAN NOT HELP WITH PLACEMENT. [facility] PATIENT'S DAUGHTER IS STEPHANIE NAIK T: [phone]. REQUESTED DIRECTOR OF CASE MANAGEMENT CONTACT DAUGHTER SINCE SHE SEEMS TO BE RESISTENT TO DISCUSS ANY PLACEMENT FOR HER MOTHER. SHE ONLY WANTS [facility] OR [facility] PLEASE NOTE MRS NAIK WAS A PATIENT OF DR INGRAM THEN DR SHORE AND NOW DR CABA
--- NOTE | 2019-03-10 07:25 | NUR ---
HAND-OFF: Report given to JEANNINE Melchor.
--- NOTE | 2019-03-10 08:14 | NUR ---
NURSE NOTES: Patient report received from JEANNINE Augustine. Asleep easily arousal to tactile stimuli with no apparent acute distress.Large amount clear secretion , suctioned as tolerated and mouth care done.On trac/vent Shiley 6, T-Piece at 28% and saturate at 98%. Afebrile at this time and GT feeding Glucerna 1.5 on hold at 0600 due to episode of vomitting.Per order will be held for 4hrs and restart a goal rate of 35cc/hr. Placement checked and intact, no residual at this time .Elevated HOB at 35 degree to prevent aspiration.DEBBIE PICC TLC,dressing clean dry and intact.External mota catheter in place draining yellow clear urine with no apparent sediments.Reabsorbed blister on left hand between index and thumb and palm of hand. Area clean , pat dry anc cover with kerlix. No drainage noted nor smell or apparent signs of infection. Still noted with bilateral upper hand edema, elevated with pillow.Full thickness pressure injury on left ischium with granulation , no exudate nor smell .Also noted with R ischium pressure injury, moist with hyperpigmentation.Affected area clean and dry and protocol treatment applied as ordered and cover with new dressing. Sacral area noted with dry peeling skin and also bilateral heels soft and blanchable.New foam dressing applied for protection.Patient on also on special mattress P200 for skin protection and wound management. Will continued with same care plan and all wound prevention protocols.Patient turn and reposition for skin management and comfort.Bed in low position and siderails up and pads for safety and seizure precaution.Call light within easy reach. Will continue same care plan.
[2019-03-10] MEDS: Bacitracin Oint 15gm Tube TOPIC SCH ×3 (09:05→18:07)
[2019-03-10] MEDS: levETIRAcetam 500mg/5ml Liquid GT SCH ×2 (09:05→20:17)
[2019-03-10] MEDS: Heparin 5000 units/ml inj SUBQ SCH ×2 (09:08→20:18)
--- NOTE | 2019-03-10 10:05 | NUR ---
NURSE NOTES: Feeding started , no residual noted.HOB elevated at 35 degree to prevent aspiration. Turned and repositioned for skin management.No change in condition at this time.Will continue with same plan of care
[2019-03-10] MEDS: Amikacin for Inhalation 2ML INH SCH ×2 (10:20→21:39)
--- NOTE | 2019-03-10 10:29 | Infectious Diseases Prog Note ---
Assessment/Plan Assessment/Plan antibiotics : inhaled amikacin A 1. gram negative pneumonia 2. respiratory failure 3. hypertension 4. CVA 5. dementia 6. sacral decubitus ulcer 7. rectal VRE colonization P 1. continue inhaled amikacin 2. will follow up cultures Subjective ROS Limited/Unobtainable: Yes Allergies: Coded Allergies: CODEINE (Verified Allergy, Unknown, HIVES, 09/15/09) Objective Vital Signs Last 24 Hour Vital Signs Date Time Temp Pulse Resp B/P (MAP) Pulse Ox O2 Delivery O2 Flow Rate FiO2 03/10/19 09:00 102 20 160/45 (83) 99 03/10/19 08:00 T-piece 6.0 03/10/19 08:00 6.0 28 03/10/19 08:00 98.2 90 24 153/50 (84) 100 03/10/19 08:00 88 03/10/19 07:47 80 20 100 T-Piece 6.0 28 82 26 100 03/10/19 07:32 82 26 100 T-Piece 6.0 28 03/10/19 07:32 100 T-Piece 6.0 28 03/10/19 07:00 100 14 145/42 (76) 100 03/10/19 06:00 82 14 146/54 (84) 100 03/10/19 05:00 66 19 99/41 (60) 100 03/10/19 04:00 98.2 74 19 150/50 (83) 99 03/10/19 04:00 T-piece 6.0 03/10/19 04:00 71 03/10/19 04:00 6.0 28 03/10/19 03:22 73 21 100 T-Piece 6.0 28 03/10/19 03:06 70 19 100 T-Piece 6.0 28 03/10/19 03:00 67 18 103/30 (54) 100 03/10/19 02:00 76 20 141/44 (76) 100 03/10/19 01:00 78 20 146/59 (88) 100 03/10/19 00:56 99 T-Piece 6.0 28 03/10/19 00:00 T-piece 6.0 03/10/19 00:00 98.3 79 22 146/50 (82) 99 03/10/19 00:00 6.0 28 03/10/19 00:00 78 03/09/19 23:33 85 22 99 T-Piece 6.0 28 03/09/19 23:18 85 24 99 T-Piece 6.0 28 03/09/19 23:00 80 22 131/39 (69) 100 03/09/19 22:00 75 21 140/33 (68) 100 03/09/19 21:27 74 21 100 T-Piece 6.0 28 03/09/19 21:17 75 24 100 T-Piece 6.0 28 03/09/19 21:00 77 21 122/30 (60) 100 03/09/19 20:00 T-piece 6.0 03/09/19 20:00 6.0 28 03/09/19 20:00 75 03/09/19 20:00 97.8 74 18 137/47 (77) 100 03/09/19 19:45 84 21 100 T-Piece 6.0 28 03/09/19 19:30 100 T-Piece 6.0 28 03/09/19 19:30 78 17 100 T-Piece 6.0 28 03/09/19 19:00 83 19 131/48 (75) 100 03/09/19 18:00 83 19 159/42 (81) 100 03/09/19 17:00 81 17 118/54 (75) 100 03/09/19 16:00 T-piece 6.0 03/09/19 16:00 8.0 30 03/09/19 16:00 94 03/09/19 16:00 98.1 81 20 148/105 (119) 99 03/09/19 15:00 73 21 121/44 (69) 100 03/09/19 14:44 78 22 100 T-Piece 6.0 28 77 22 100 03/09/19 14:00 81 19 120/56 (77) 100 03/09/19 13:00 83 21 102/51 (68) 99 03/09/19 12:45 100 T-Piece 6.0 28 03/09/19 12:00 T-piece 6.0 03/09/19 12:00 78 03/09/19 12:00 8.0 28 03/09/19 12:00 98.1 77 24 138/45 (76) 100 03/09/19 11:44 81 28 100 T-Piece 6.0 28 80 27 97 03/09/19 11:00 78 22 139/69 (92) 99 Height (Feet): 5 Height (Inches): 5.00 Weight (Pounds): 180 HEENT: status post trach Respiratory/Chest: lungs clear Cardiovascular: normal rate, regular rhythm, no gallop/murmur Abdomen: soft, non tender, other - GT Extremities: no edema, other - right arm PICC Microbiology Date/Time Source Procedure Growth Status 03/07/19 11:30 Sputum Gram Stain - Final Resulted 03/07/19 11:30 Sputum Culture - Preliminary Gram Negative Bacillus 1 Resulted 03/08/19 20:00 Stool Clostridium difficile Toxin Assay - Final Complete Current Medications Medications (Trade) Dose Ordered Sig/Maicol Route PRN Reason Start Time Stop Time Status Last Admin Dose Admin Acetylcysteine (Mucomyst) 200 mg Q4HRT [facility] 02/28/19 03:00 03/29/19 16:59 03/10/19 07:32 Albuterol/ Ipratropium (Albuterol/ Ipratropium) 3 ml Q4HRT [facility] 03/10/19 03:00 03/15/19 02:59 03/10/19 07:32 Amikacin Sulfate (Amikin) 500 mg Q12HR@10,22 INH 03/07/19 11:00 03/14/19 10:59 03/10/19 10:20 Atropine Sulfate (Atropine Opth Adriana) 2 drop TID SL 03/07/19 09:00 04/06/19 08:59 03/10/19 09:05 Bacitracin (Bacitracin 15gm tube) 1 applic THREE TIMES A DAY TOPIC 02/28/19 18:30 03/30/19 18:29 03/10/19 09:05 Chlorhexidine Gluconate (Cesilia-Hex 2%) 1 applic DAILY@1999 TOPIC 02/18/19 20:00 03/12/19 19:59 03/09/19 21:18 Dextrose/Sodium Chloride 1,000 ml @ 75 mls/hr [id number] IV 03/07/19 11:15 04/06/19 11:14 03/10/19 03:44 Famotidine (Pepcid) 20 mg BID GT 03/02/19 18:00 04/01/19 17:59 03/10/19 09:05 Heparin Sodium (Porcine) (Heparin 5000 units/ml) 5,000 units EVERY 12 HOURS SUBQ 02/18/19 09:00 03/16/19 23:14 03/10/19 09:08 Levetiracetam (Keppra) 750 mg Q12HR GT 02/18/19 09:00 03/16/19 23:29 03/10/19 09:05 Metoclopramide HCl (Reglan) 5 mg Q6H IVP 03/10/19 02:00 03/24/19 01:59 03/10/19 09:05 Geovany Yang MD Mar 10, 2019 10:29
--- NOTE | 2019-03-10 11:06 | NUR ---
RD ASSESSMENT & RECOMMENDATIONS SEE CARE ACTIVITY FOR COMPLETE ASSESSMENT DAILY ESTIMATED NEEDS: Needs based on Pulmonary, wounds, bedbound/ 60kg adj 25-28 kcals/kg 3593-5595 total kcals 1.25-2 g protein/kg 75-120 g total protein 25-30 mL/kg 1422-3812 total fluid mLs NUTRITION DIAGNOSIS: * Increased kcal/prot needs R/T wound healing as evidenced by BL buttocks and sacral wound photos, refer to WC eval. * Swallowing difficulty R/T respiratory status as evidenced by pt on T-collar, now back the vent, PEG dep, TF held now d/t emesis. CURRENT TF: Glucerna 1.5 @ 35ml/hr x 24 hrs (per family request per RN) ENTERAL NUTRITION RECOMMENDATIONS: Glucerna 1.5 @ 45ml/hr x 24 hrs to provide 1080ml, 1620kcal, 89g prot, 820ml free water - W/ continued good TF tolerance, rec to increase goal rate to 45ml/hr x 24 hrs to meet 100% est kcal/prot needs - HOB over 30 degrees - Water flush of 170ml q 6 hrs * W/ continued uptrend in potassium (5.1-> 5.4-> now wnl), rec TF change to NEPRO. Goal of 35ml/hr x24 hrs to provide 840ml, 1512 kcal, 68g pro, 611ml free H2O. Rec to add PROSOURCE 1 pack daily (11g pro) to better meet pro needs. Flush per MD. ADDITIONAL RECOMMENDATIONS: 1) RE-CALIBRATED BEDSCALE WT FOR ACCURATE CBW 2) Wound healing: Add Cristian 1pkt BID w/ continued good TF tolerace + MVI x1 daily 3) Monitor lytes, replete as needed 4) Monitor BGs closely, need for NISS 5) Monitor TF tolerance: rec to increase TF as above w/ continued good TF tolerance (pt on low rate of 35ml/hr per family request per RN/ now on hold w/ emesis 03/10)
--- NOTE | 2019-03-10 12:11 | NUR ---
NURSE NOTES: Patient awake , tolerate well the feeding.Suctioned as tolerated.Mouth care done.Turned and repositioned for skin management. HOB elevated to prevent aspiration.Call light within easy reach.Will continue to monitor.No significant change in condition at this time
--- NOTE | 2019-03-10 13:54 | Nephrology Progress Note ---
Assessment/Plan Problem List: (1) Acute renal failure (ARF) Assessment: Cr stable (2) Chronic respiratory failure (3) Anemia (4) Sepsis Assessment Acute renal failure Respiratory failure - Trach Low Mag- Low k , Low Na Anemia UTI / Sepsis Proteinuria / HypoAlbuminemia high Trigs Sz decubs bed bound DNR Plan no labs today bolus Albumin as needed K and Mag and Phos supplement as needed Hydrate as needed Urine studies avoid Nephrotoxics mag K Phos supplements as needed monitor renal parameters Subjective ROS Limited/Unobtainable: No Constitutional: Reports: malaise, weakness Objective Objective Last 24 Hour Vital Signs Date Time Temp Pulse Resp B/P (MAP) Pulse Ox O2 Delivery O2 Flow Rate FiO2 03/10/19 13:00 71 21 107/32 (57) 100 03/10/19 12:30 98 T-Piece 6.0 28 03/10/19 12:00 92 03/10/19 12:00 98.0 83 22 133/33 (66) 98 03/10/19 12:00 T-piece 6.0 03/10/19 12:00 6.0 28 03/10/19 11:00 83 23 86/30 (48) 94 03/10/19 10:45 74 22 100 T-Piece 6.0 28 88 24 100 03/10/19 10:30 88 24 100 T-Piece 6.0 28 89 25 100 03/10/19 10:00 89 19 134/42 (72) 100 03/10/19 09:00 102 20 160/45 (83) 99 03/10/19 08:00 T-piece 6.0 03/10/19 08:00 6.0 28 03/10/19 08:00 98.2 90 24 153/50 (84) 100 03/10/19 08:00 88 03/10/19 07:47 80 20 100 T-Piece 6.0 28 82 26 100 03/10/19 07:32 82 26 100 T-Piece 6.0 28 03/10/19 07:32 100 T-Piece 6.0 28 03/10/19 07:00 100 14 145/42 (76) 100 03/10/19 06:00 82 14 146/54 (84) 100 03/10/19 05:00 66 19 99/41 (60) 100 03/10/19 04:00 98.2 74 19 150/50 (83) 99 03/10/19 04:00 T-piece 6.0 03/10/19 04:00 71 03/10/19 04:00 6.0 28 03/10/19 03:22 73 21 100 T-Piece 6.0 28 03/10/19 03:06 70 19 100 T-Piece 6.0 28 03/10/19 03:00 67 18 103/30 (54) 100 03/10/19 02:00 76 20 141/44 (76) 100 03/10/19 01:00 78 20 146/59 (88) 100 03/10/19 00:56 99 T-Piece 6.0 28 03/10/19 00:00 T-piece 6.0 03/10/19 00:00 98.3 79 22 146/50 (82) 99 03/10/19 00:00 6.0 28 03/10/19 00:00 78 03/09/19 23:33 85 22 99 T-Piece 6.0 28 03/09/19 23:18 85 24 99 T-Piece 6.0 28 03/09/19 23:00 80 22 131/39 (69) 100 03/09/19 22:00 75 21 140/33 (68) 100 03/09/19 21:27 74 21 100 T-Piece 6.0 28 03/09/19 21:17 75 24 100 T-Piece 6.0 28 03/09/19 21:00 77 21 122/30 (60) 100 03/09/19 20:00 T-piece 6.0 03/09/19 20:00 6.0 28 03/09/19 20:00 75 03/09/19 20:00 97.8 74 18 137/47 (77) 100 03/09/19 19:45 84 21 100 T-Piece 6.0 28 03/09/19 19:30 100 T-Piece 6.0 28 03/09/19 19:30 78 17 100 T-Piece 6.0 28 03/09/19 19:00 83 19 131/48 (75) 100 03/09/19 18:00 83 19 159/42 (81) 100 03/09/19 17:00 81 17 118/54 (75) 100 03/09/19 16:00 T-piece 6.0 03/09/19 16:00 8.0 30 03/09/19 16:00 94 03/09/19 16:00 98.1 81 20 148/105 (119) 99 03/09/19 15:00 73 21 121/44 (69) 100 03/09/19 14:44 78 22 100 T-Piece 6.0 28 77 22 100 03/09/19 14:00 81 19 120/56 (77) 100 Intake and Output 03/09/19 03/10/19 19:00 07:00 Intake Total 915 ml 1030 ml Output Total 500 ml 400 ml Balance 415 ml 630 ml Free Water 30 ml 90 ml IV Total 855 ml 900 ml Tube Feeding 0 ml 40 ml Other 30 ml Output Urine Total 500 ml 400 ml # Bowel Movements 1 Height (Feet): 5 Height (Inches): 5.00 Weight (Pounds): 180 General Appearance: no apparent distress EENT: other - trach Cardiovascular: normal rate Respiratory/Chest: decreased breath sounds Objective no change Eric Cortez MD Mar 10, 2019 13:54
--- NOTE | 2019-03-10 14:03 | NUR ---
NURSE NOTES: Patient remains hemodynamically stable.Turned and repositioned.HOB elevated to prevent aspiration.Will continue to monitor.Call light within easy reach
--- NOTE | 2019-03-10 16:03 | General Progress Note ---
Assessment/Plan Status: stable, progressing Assessment/Plan: Assessment - N/V, periodic, including suctioning of feeds from mouth - suspect due to gastroparesis, possibly also from suctioning reflex - DTR declines GJ conversion. - will Rx with reglan, short term - suction gently - Elevated Alk phos / LFT - CT negative - abd U/S negative - check hepatitis serologies - negative - Anemia with OB (-) stools - Resp failure, s/p Trach - dysphagia, s/p PEG --> s/p GT change - OBS - minor GT tract inflammation / infection - poor Px Recommendations - laxative PRN - antibiotic ointment to GT site PRN - Resume feeds to prevent malnutrition - aspiration precautions - elevate HOB - PPI - d/w DTR Subjective Allergies: Coded Allergies: CODEINE (Verified Allergy, Unknown, HIVES, 09/15/09) Subjective seen in am d/w DTR late evening yesterday: advised DTR recurrent TF regurgitation and suctioning of TF from mouth advised DTR re inability to feed consistently, risk for PNA, and malnutrition advised DTR re my recommendation to convert to GJ tube DTR declined GJ tube says it did not work at [facility] says patient vomits due to gagging with suctioning (and I reminded her that GJ should help in this case also) DTR requests that I continue TF and hold PRN emesis She will get back to me if she agrees to GJ tube Objective Last 24 Hour Vital Signs Date Time Temp Pulse Resp B/P (MAP) Pulse Ox O2 Delivery O2 Flow Rate FiO2 03/10/19 15:40 93 18 100 T-Piece 6.0 28 107 23 96 03/10/19 14:00 76 19 122/39 (66) 100 03/10/19 13:00 71 21 107/32 (57) 100 03/10/19 12:30 98 T-Piece 6.0 28 03/10/19 12:00 92 03/10/19 12:00 98.0 83 22 133/33 (66) 98 03/10/19 12:00 T-piece 6.0 03/10/19 12:00 6.0 28 03/10/19 11:00 83 23 86/30 (48) 94 03/10/19 10:45 74 22 100 T-Piece 6.0 28 88 24 100 03/10/19 10:30 88 24 100 T-Piece 6.0 28 89 25 100 03/10/19 10:00 89 19 134/42 (72) 100 03/10/19 09:00 102 20 160/45 (83) 99 03/10/19 08:00 T-piece 6.0 03/10/19 08:00 6.0 28 03/10/19 08:00 98.2 90 24 153/50 (84) 100 03/10/19 08:00 88 03/10/19 07:47 80 20 100 T-Piece 6.0 28 82 26 100 03/10/19 07:32 82 26 100 T-Piece 6.0 28 03/10/19 07:32 100 T-Piece 6.0 28 03/10/19 07:00 100 14 145/42 (76) 100 03/10/19 06:00 82 14 146/54 (84) 100 03/10/19 05:00 66 19 99/41 (60) 100 03/10/19 04:00 98.2 74 19 150/50 (83) 99 03/10/19 04:00 T-piece 6.0 03/10/19 04:00 71 03/10/19 04:00 6.0 28 03/10/19 03:22 73 21 100 T-Piece 6.0 28 03/10/19 03:06 70 19 100 T-Piece 6.0 28 03/10/19 03:00 67 18 103/30 (54) 100 03/10/19 02:00 76 20 141/44 (76) 100 03/10/19 01:00 78 20 146/59 (88) 100 03/10/19 00:56 99 T-Piece 6.0 28 03/10/19 00:00 T-piece 6.0 03/10/19 00:00 98.3 79 22 146/50 (82) 99 03/10/19 00:00 6.0 28 03/10/19 00:00 78 03/09/19 23:33 85 22 99 T-Piece 6.0 28 03/09/19 23:18 85 24 99 T-Piece 6.0 28 03/09/19 23:00 80 22 131/39 (69) 100 03/09/19 22:00 75 21 140/33 (68) 100 12/9/19 21:27 74 21 100 T-Piece 6.0 28 03/09/19 21:17 75 24 100 T-Piece 6.0 28 03/09/19 21:00 77 21 122/30 (60) 100 03/09/19 20:00 T-piece 6.0 03/09/19 20:00 6.0 28 03/09/19 20:00 75 03/09/19 20:00 97.8 74 18 137/47 (77) 100 03/09/19 19:45 84 21 100 T-Piece 6.0 28 03/09/19 19:30 100 T-Piece 6.0 28 03/09/19 19:30 78 17 100 T-Piece 6.0 28 03/09/19 19:00 83 19 131/48 (75) 100 03/09/19 18:00 83 19 159/42 (81) 100 03/09/19 17:00 81 17 118/54 (75) 100 Intake and Output 03/09/19 03/10/19 19:00 07:00 Intake Total 915 ml 1030 ml Output Total 500 ml 400 ml Balance 415 ml 630 ml Free Water 30 ml 90 ml IV Total 855 ml 900 ml Tube Feeding 0 ml 40 ml Other 30 ml Output Urine Total 500 ml 400 ml # Bowel Movements 1 Height (Feet): 5 Height (Inches): 5.00 Weight (Pounds): 62 Objective Debilitated AA woman NCAT (+) trach coarse ronchi RR obese abd, (+) GT no edema Celio Vaughan MD Mar 10, 2019 16:03
--- NOTE | 2019-03-10 16:07 | NUR ---
NURSE NOTES: Mouth care done, patient suctioned as tolerated.Still noted with large amount white secretion.HOB elevated at 35 degree to prevent aspiration.Turned and repositioned for skin management and comfort.Patient had a small episode of bowel movement. Good perineal care done. Will continue same care plan
--- NOTE | 2019-03-10 16:11 | General Progress Note ---
Assessment/Plan Problem List: (1) Seizure ICD Codes: R56.9 - Unspecified convulsions SNOMED: 71462762 (2) Anemia ICD Codes: D64.9 - Anemia, unspecified SNOMED: 150476985 Qualifiers: Qualified Codes: D64.9 - Anemia, unspecified (3) Sepsis ICD Codes: A41.9 - Sepsis, unspecified organism SNOMED: 62862669, 103741626 Qualifiers: Qualified Codes: A41.9 - Sepsis, unspecified organism (4) Respiratory failure with hypoxia ICD Codes: J96.91 - Respiratory failure, unspecified with hypoxia SNOMED: 05244370751778978 Qualifiers: Qualified Codes: J96.21 - Acute and chronic respiratory failure with hypoxia (5) HCAP (healthcare-associated pneumonia) ICD Codes: J18.9 - Pneumonia, unspecified organism SNOMED: 465728605, 394263826 (6) Sacral decubitus ulcer ICD Codes: L89.159 - Pressure ulcer of sacral region, unspecified stage SNOMED: 682686092 (7) HTN (hypertension) ICD Codes: I10 - Essential (primary) hypertension SNOMED: 87350803 (8) Chronic vegetative state ICD Codes: R40.3 - Persistent vegetative state SNOMED: 87425674 (9) Chronic respiratory failure ICD Codes: J96.10 - Chronic respiratory failure, unspecified whether with hypoxia or hypercapnia SNOMED: 14390865 (10) Limited mobility ICD Codes: Z74.09 - Other reduced mobility SNOMED: 6025483 Status: stable, progressing Assessment/Plan: vent prn as needed resp rx suctioning as needed gt feeds with caution bowel regime monitor residuals sx rx monitor bp monitor cbc monitor for bleeding Subjective ROS Limited/Unobtainable: Yes Constitutional: Reports: malaise, weakness HEENT: Reports: no symptoms Cardiovascular: Reports: no symptoms Respiratory: Reports: cough, shortness of breath, sputum Gastrointestinal/Abdominal: Reports: difficulty swallowing Genitourinary: Reports: no symptoms Neurologic/Psychiatric: Reports: pre-existing deficit, seizure Endocrine: Reports: no symptoms Hematologic/Lymphatic: Reports: anemia Allergies: Coded Allergies: CODEINE (Verified Allergy, Unknown, HIVES, 09/15/09) All Systems: reviewed and negative except above Subjective vomiting. no fever or chills. no sob. mild congestion. not tolerating feeds. no szs. Objective Last 24 Hour Vital Signs Date Time Temp Pulse Resp B/P (MAP) Pulse Ox O2 Delivery O2 Flow Rate FiO2 03/10/19 16:00 6.0 28 03/10/19 16:00 T-piece 6.0 03/10/19 16:00 90 20 136/47 (76) 98 03/10/19 15:40 93 18 100 T-Piece 6.0 28 107 23 96 03/10/19 15:00 97 18 161/83 (109) 100 03/10/19 14:00 76 19 122/39 (66) 100 03/10/19 13:00 71 21 107/32 (57) 100 03/10/19 12:30 98 T-Piece 6.0 28 03/10/19 12:00 92 03/10/19 12:00 98.0 83 22 133/33 (66) 98 03/10/19 12:00 T-piece 6.0 03/10/19 12:00 6.0 28 03/10/19 11:00 83 23 86/30 (48) 94 03/10/19 10:45 74 22 100 T-Piece 6.0 28 88 24 100 03/10/19 10:30 88 24 100 T-Piece 6.0 28 89 25 100 03/10/19 10:00 89 19 134/42 (72) 100 03/10/19 09:00 102 20 160/45 (83) 99 03/10/19 08:00 T-piece 6.0 03/10/19 08:00 6.0 28 03/10/19 08:00 98.2 90 24 153/50 (84) 100 03/10/19 08:00 88 03/10/19 07:47 80 20 100 T-Piece 6.0 28 82 26 100 03/10/19 07:32 82 26 100 T-Piece 6.0 28 03/10/19 07:32 100 T-Piece 6.0 28 03/10/19 07:00 100 14 145/42 (76) 100 03/10/19 06:00 82 14 146/54 (84) 100 03/10/19 05:00 66 19 99/41 (60) 100 03/10/19 04:00 98.2 74 19 150/50 (83) 99 03/10/19 04:00 T-piece 6.0 03/10/19 04:00 71 03/10/19 04:00 6.0 28 03/10/19 03:22 73 21 100 T-Piece 6.0 28 03/10/19 03:06 70 19 100 T-Piece 6.0 28 03/10/19 03:00 67 18 103/30 (54) 100 03/10/19 02:00 76 20 141/44 (76) 100 03/10/19 01:00 78 20 146/59 (88) 100 03/10/19 00:56 99 T-Piece 6.0 28 03/10/19 00:00 T-piece 6.0 03/10/19 00:00 98.3 79 22 146/50 (82) 99 03/10/19 00:00 6.0 28 03/10/19 00:00 78 03/09/19 23:33 85 22 99 T-Piece 6.0 28 03/09/19 23:18 85 24 99 T-Piece 6.0 28 03/09/19 23:00 80 22 131/39 (69) 100 03/09/19 22:00 75 21 140/33 (68) 100 03/09/19 21:27 74 21 100 T-Piece 6.0 28 03/09/19 21:17 75 24 100 T-Piece 6.0 28 03/09/19 21:00 77 21 122/30 (60) 100 03/09/19 20:00 T-piece 6.0 03/09/19 20:00 6.0 28 03/09/19 20:00 75 03/09/19 20:00 97.8 74 18 137/47 (77) 100 03/09/19 19:45 84 21 100 T-Piece 6.0 28 03/09/19 19:30 100 T-Piece 6.0 28 03/09/19 19:30 78 17 100 T-Piece 6.0 28 03/09/19 19:00 83 19 131/48 (75) 100 03/09/19 18:00 83 19 159/42 (81) 100 03/09/19 17:00 81 17 118/54 (75) 100 Intake and Output 03/09/19 03/10/19 19:00 07:00 Intake Total 915 ml 1030 ml Output Total 500 ml 400 ml Balance 415 ml 630 ml Free Water 30 ml 90 ml IV Total 855 ml 900 ml Tube Feeding 0 ml 40 ml Other 30 ml Output Urine Total 500 ml 400 ml # Bowel Movements 1 Height (Feet): 5 Height (Inches): 5.00 Weight (Pounds): 62 Objective General Appearance: WD/WN, confused. on trach collar Neck: supple Cardiovascular: normal rate, regular rhythm Respiratory/Chest: chest wall non-tender, rhonchi - bilaterally(minimal) Abdomen: normal bowel sounds, non tender, soft, no organomegaly Edema: no edema noted Arm (L), no edema noted Arm (R), no edema noted Leg (L), no edema noted Leg (R), no edema noted Pedal (L), no edema noted Pedal (R), no edema noted Generalized Neurologic: disoriented, unresponsive, aphasia Irvin Beltrán MD Mar 10, 2019 16:11
--- NOTE | 2019-03-10 17:38 | Pulmonology Progress Note ---
Assessment/Plan Assessment/Plan Impression: Sepsis syndrome Pneumonia VDRF, Trach, G tube, Hypertension, Cardiac disease, Dementia, Previous CVA, Seizure disorder, Respiratory failure with hypoxia Anemia, worsened ? gib Sacral ulcer renal cyst pulmonary congestion Plan respiratory care reviewed imaging noted atropine as needed neb therapy as is inhaled amikacin bid off vent as able and use PRN Oxygen low flow Monitor labs and protein levels aspiration precautions polymicrobial infection noted presently without fevers Patient is a DNR. No CPR. ICU care reviewed medications/laboratory data/nursing notes/ICU care reviewed in detail note reviewed and edited care discussed with RN and RT ICU time spent 40 minutes Subjective Allergies: Coded Allergies: CODEINE (Verified Allergy, Unknown, HIVES, 09/15/09) Subjective respiratory care reviewed on atropine and nebs ICU care reviewed inhaled amikacin RT care reviewed findings reviewed and discussed Objective Last 24 Hour Vital Signs Date Time Temp Pulse Resp B/P (MAP) Pulse Ox O2 Delivery O2 Flow Rate FiO2 03/10/19 17:00 82 22 116/43 (67) 99 03/10/19 16:00 80 03/10/19 16:00 6.0 28 03/10/19 16:00 T-piece 6.0 03/10/19 16:00 90 20 136/47 (76) 98 03/10/19 15:40 93 18 100 T-Piece 6.0 28 107 23 96 03/10/19 15:00 97 18 161/83 (109) 100 03/10/19 14:00 76 19 122/39 (66) 100 03/10/19 13:00 71 21 107/32 (57) 100 03/10/19 12:30 98 T-Piece 6.0 28 03/10/19 12:00 92 03/10/19 12:00 98.0 83 22 133/33 (66) 98 03/10/19 12:00 T-piece 6.0 03/10/19 12:00 6.0 28 03/10/19 11:00 83 23 86/30 (48) 94 03/10/19 10:45 74 22 100 T-Piece 6.0 28 88 24 100 03/10/19 10:30 88 24 100 T-Piece 6.0 28 89 25 100 03/10/19 10:00 89 19 134/42 (72) 100 03/10/19 09:00 102 20 160/45 (83) 99 03/10/19 08:00 T-piece 6.0 03/10/19 08:00 6.0 28 03/10/19 08:00 98.2 90 24 153/50 (84) 100 03/10/19 08:00 88 03/10/19 07:47 80 20 100 T-Piece 6.0 28 82 26 100 03/10/19 07:32 82 26 100 T-Piece 6.0 28 03/10/19 07:32 100 T-Piece 6.0 28 03/10/19 07:00 100 14 145/42 (76) 100 03/10/19 06:00 82 14 146/54 (84) 100 03/10/19 05:00 66 19 99/41 (60) 100 03/10/19 04:00 98.2 74 19 150/50 (83) 99 03/10/19 04:00 T-piece 6.0 03/10/19 04:00 71 03/10/19 04:00 6.0 28 03/10/19 03:22 73 21 100 T-Piece 6.0 28 03/10/19 03:06 70 19 100 T-Piece 6.0 28 03/10/19 03:00 67 18 103/30 (54) 100 03/10/19 02:00 76 20 141/44 (76) 100 03/10/19 01:00 78 20 146/59 (88) 100 03/10/19 00:56 99 T-Piece 6.0 28 03/10/19 00:00 T-piece 6.0 03/10/19 00:00 98.3 79 22 146/50 (82) 99 03/10/19 00:00 6.0 28 03/10/19 00:00 78 03/09/19 23:33 85 22 99 T-Piece 6.0 28 03/09/19 23:18 85 24 99 T-Piece 6.0 28 03/09/19 23:00 80 22 131/39 (69) 100 03/09/19 22:00 75 21 140/33 (68) 100 03/09/19 21:27 74 21 100 T-Piece 6.0 28 03/09/19 21:17 75 24 100 T-Piece 6.0 28 03/09/19 21:00 77 21 122/30 (60) 100 03/09/19 20:00 T-piece 6.0 03/09/19 20:00 6.0 28 03/09/19 20:00 75 03/09/19 20:00 97.8 74 18 137/47 (77) 100 03/09/19 19:45 84 21 100 T-Piece 6.0 28 03/09/19 19:30 100 T-Piece 6.0 28 03/09/19 19:30 78 17 100 T-Piece 6.0 28 03/09/19 19:00 83 19 131/48 (75) 100 03/09/19 18:00 83 19 159/42 (81) 100 Intake and Output 03/09/19 03/10/19 19:00 07:00 Intake Total 915 ml 1030 ml Output Total 500 ml 400 ml Balance 415 ml 630 ml Free Water 30 ml 90 ml IV Total 855 ml 900 ml Tube Feeding 0 ml 40 ml Other 30 ml Output Urine Total 500 ml 400 ml # Bowel Movements 1 Objective WDWN NAD contracted off vent reduced breath sounds bilaterally with occ rhonchi [id number] without MRG NABS nontender no HSM no CC minimal edema nonfocal nonverbal trach and gt reviewed and edited Microbiology Date/Time Source Procedure Growth Status 03/08/19 20:00 Stool Clostridium difficile Toxin Assay - Final Complete Current Medications Medications (Trade) Dose Ordered Sig/Maicol Route PRN Reason Start Time Stop Time Status Last Admin Dose Admin Acetylcysteine (Mucomyst) 200 mg Q4HRT [facility] 02/28/19 03:00 03/29/19 16:59 03/10/19 15:25 Albuterol/ Ipratropium (Albuterol/ Ipratropium) 3 ml Q4HRT [facility] 03/10/19 03:00 03/15/19 02:59 03/10/19 15:25 Amikacin Sulfate (Amikin) 500 mg Q12HR@, INH 03/07/19 11:00 03/14/19 10:59 03/10/19 10:20 Atropine Sulfate (Atropine Opth Adriana) 2 drop TID 03/07/19 09:00 04/06/19 08:59 03/10/19 14:11 Bacitracin (Bacitracin 15gm tube) 1 applic THREE TIMES A DAY TOPIC 02/28/19 18:30 03/30/19 18:29 03/10/19 14:11 Chlorhexidine Gluconate (Cesilia-Hex 2%) 1 applic DAILY@2000 TOPIC 02/18/19 20:00 03/12/19 19:59 03/09/19 21:18 Dextrose/Sodium Chloride 1,000 ml @ 75 mls/hr [id number] IV 03/07/19 11:15 04/06/19 11:14 03/10/19 16:18 Famotidine (Pepcid) 20 mg BID GT 03/02/19 18:00 04/01/19 17:59 03/10/19 09:05 Heparin Sodium (Porcine) (Heparin 5000 units/ml) 5,000 units EVERY 12 HOURS SUBQ 02/18/19 09:00 03/16/19 23:14 03/10/19 09:08 Levetiracetam (Keppra) 750 mg Q12HR GT 02/18/19 09:00 03/16/19 23:29 03/10/19 09:05 Metoclopramide HCl (Reglan) 5 mg Q6H IVP 03/10/19 02:00 03/24/19 01:59 03/10/19 14:12 Amaury Chan MD Mar 10, 2019 17:38
--- NOTE | 2019-03-10 18:27 | NUR ---
NURSE NOTES: Adls done, mouth care provided and patient suctioned as tolerated.Tolerate well feeding, residual checked and at 15cc/hr.No episode of vomiting.HOB elevated to prevent aspiration. Remains hemodynamically stable at this time.Will continue same plan of care.Call light within easy reach
--- NOTE | 2019-03-10 19:00 | NUR ---
NURSE NOTES: Pt report received from [facility]. Pt remains stable. pt is obtunded neuro [place]. pt is on a T piece able to sat at 99%, no resp distress noted. pt is on a campus monitor showing NSR, no distress noted. pt bed is low, locked, armed, bed rails up times 3, call light within reach. will follow plan of care.
--- NOTE | 2019-03-10 19:20 | NUR ---
HAND-OFF: Report given to JEANNINE Almonte.
[2019-03-10] MEDS: Dyna-Hex 2% Top Sol 2oz TOPIC SCH (20:17)
--- NOTE | 2019-03-10 21:00 | NUR ---
NURSE NOTES: Pt repositioned. experienced 1 normal bowl moment. pt has been cleaned with replacement on all dressings. all lines such as IVs, G tube feeding, pure wick, and 5 lead are in proper placement. all lines are on and working, such as G tube feeding is on, and vital sign lines are on (blood pressure cuff, 5 lead connected, pulse ox).
--- NOTE | 2019-03-10 21:05 | Surgery Progress Note ---
Surgery Progress Note Subjective Additional Comments Still with residuals Difficult placement Exam otherwise stable Comfortable appearing Pending family decision Pending placement Objective Last 24 Hour Vital Signs Date Time Temp Pulse Resp B/P (MAP) Pulse Ox O2 Delivery O2 Flow Rate FiO2 03/10/19 19:17 84 23 100 T-Piece 6.0 28 03/10/19 19:02 100 T-Piece 6.0 28 03/10/19 19:02 74 19 100 T-Piece 6.0 28 03/10/19 19:00 77 19 133/49 (77) 100 03/10/19 18:00 82 22 100/45 (63) 100 03/10/19 17:00 82 22 116/43 (67) 99 03/10/19 16:00 80 03/10/19 16:00 6.0 28 03/10/19 16:00 T-piece 6.0 03/10/19 16:00 97.8 90 20 136/47 (76) 98 03/10/19 15:40 93 18 100 T-Piece 6.0 28 107 23 96 03/10/19 15:00 97 18 161/83 (109) 100 03/10/19 14:00 76 19 122/39 (66) 100 03/10/19 13:00 71 21 107/32 (57) 100 03/10/19 12:30 98 T-Piece 6.0 28 03/10/19 12:00 92 03/10/19 12:00 98.0 83 22 133/33 (66) 98 03/10/19 12:00 T-piece 6.0 03/10/19 12:00 6.0 28 03/10/19 11:00 83 23 86/30 (48) 94 03/10/19 10:45 74 22 100 T-Piece 6.0 28 88 24 100 03/10/19 10:30 88 24 100 T-Piece 6.0 28 89 25 100 03/10/19 10:00 89 19 134/42 (72) 100 03/10/19 09:00 102 20 160/45 (83) 99 03/10/19 08:00 T-piece 6.0 03/10/19 08:00 6.0 28 03/10/19 08:00 98.2 90 24 153/50 (84) 100 03/10/19 08:00 88 03/10/19 07:47 80 20 100 T-Piece 6.0 28 82 26 100 03/10/19 07:32 82 26 100 T-Piece 6.0 28 03/10/19 07:32 100 T-Piece 6.0 28 03/10/19 07:00 100 14 145/42 (76) 100 03/10/19 06:00 82 14 146/54 (84) 100 03/10/19 05:00 66 19 99/41 (60) 100 03/10/19 04:00 98.2 74 19 150/50 (83) 99 03/10/19 04:00 T-piece 6.0 03/10/19 04:00 71 03/10/19 04:00 6.0 28 03/10/19 03:22 73 21 100 T-Piece 6.0 28 03/10/19 03:06 70 19 100 T-Piece 6.0 28 03/10/19 03:00 67 18 103/30 (54) 100 03/10/19 02:00 76 20 141/44 (76) 100 03/10/19 01:00 78 20 146/59 (88) 100 03/10/19 00:56 99 T-Piece 6.0 28 03/10/19 00:00 T-piece 6.0 03/10/19 00:00 98.3 79 22 146/50 (82) 99 03/10/19 00:00 6.0 28 03/10/19 00:00 78 03/09/19 23:33 85 22 99 T-Piece 6.0 28 03/09/19 23:18 85 24 99 T-Piece 6.0 28 03/09/19 23:00 80 22 131/39 (69) 100 03/09/19 22:00 75 21 140/33 (68) 100 03/09/19 21:27 74 21 100 T-Piece 6.0 28 03/09/19 21:17 75 24 100 T-Piece 6.0 28 I&O Intake and Output 03/09/19 03/10/19 19:00 07:00 Intake Total 915 ml 1030 ml Output Total 500 ml 400 ml Balance 415 ml 630 ml Free Water 30 ml 90 ml IV Total 855 ml 900 ml Tube Feeding 0 ml 40 ml Other 30 ml Output Urine Total 500 ml 400 ml # Bowel Movements 1 Dressing: other Wound: other Drains: other Cardiovascular: RSR Respiratory: decreased breath sounds Abdomen: soft, present bowel sounds, non-distended Extremities: no cyanosis, other Plan Problems: (1) Sacral decubitus ulcer Assessment & Plan: This is a 83-year-old female with multiple medical committees that is currently admitted for medical care and management and identified to have multiple wounds requiring care. On admission patient noted to have a resolved sacral decubitus ulcer. Has had prior care and is well-healed at this time. Will ensure it does not open up again. Patient has a right ischial decubitus ulcer that is resolved. Scar intact and well formed. Will monitor to ensure it does not open up again. Patient has a left ischial decubitus ulcer that can be identified to be stage IV with palpable bone that has been resolving as noted by the periwound tissue and scar but open area approximately 1 cm x 1.5 cm few millimeters deep to bone identified. Unsure if this is been to be completely healed prior and has since opened or if has been healing at this level. No foul odor no drainage was unsure local wound care until healed Bilateral heels soft without signs of injury Resolving pressure injury L ischium(L)1.8cm x (W)1cm.Scattered biofilm at base of wound. Edges flat and adherent with surrounding hyperpigmentation. No odor or exudate noted. Sacrum is pale pink with surrounding hyperpigmentation. Hyperpigmentation R ischium with small sheared area centrally.No areas of erythema or exudate noted. Both heels are soft but blanchable. Skin Assessed under collar of trach and no evidence of skin breakdown noted. All wound Tx. are effective and continued as ordered. Pt ahs an APM/Belén mattress overlay and is being repositioned per protocols and per tolerance.No new skin concerns noted. Full thickness pressure injury L Ischium with small amt biofilm (L)1.8cm x (W) 1cm. Surrounding pink hyperpigmentation. No odor or exudate noted. Rhome hyperpigmentation from previous wound noted to sacrum. Pt also noted to have Cat 2 Skin Tear dorsal L hand, L 5th metatarsal extending into palm of hand. 80% skin flap in situ.Both heels are dry firm and blanchable. No other skin concerns noted. Cleanse Blister Dorsal and palm of L hand with saline. Versatel One Silicone Contact Layer(Applied). Apply Silvasorb Gel. Wrap with Kerlix Gauze.Change every 7 days and prn. Apply Moisture Barrier to sacrum. Cover with Optifoam drsg. Change every 3 days and prn. Cleanse L ischial wound with saline. Apply Therahoney. Apply Moisture Barrier Paste periwound. Cover with Optifoam drsg. Change every 3 days and prn. Apply Cavilon Skin Barrier to both heels. Cover each heel with Optifoam drsg. Change every 7 days and prn. APM/BELÉN Mattress overlay. Reposition at least every 2hours or as tolerated. Off-load heels with pillow. Nutritional optimization We will monitor follow with recommendations cont with above upon d/c (2) Sepsis Assessment & Plan: IV abx as per ID trend labs improving wounds unlikely etiology likely respiratory imaging noted and okay abnormal lft's stable PICC on Abx in ICU for desaturation CXR with consolidation Evidence of left lower lobe pneumonia, also previously demonstrated Gastrostomy in good position Mild diastasis of the rectus abdominis musculature again demonstrated Retrosacral decubitus changes, better depicted on prior exam which included the pelvis Small hiatal hernia with evidence of trace gastroesophageal reflux Discussed with GI. Recommend GJ family still pending decision (3) Feeding by G-tube Assessment & Plan: DAILY ESTIMATED NEEDS: Needs based on Pulmonary, wounds, bedbound/ 60kg adj 25-28 kcals/kg 6216-6882 total kcals 1.25-2 g protein/kg 75-120 g total protein 25-30 mL/kg 4251-1671 total fluid mLs NUTRITION DIAGNOSIS: * Swallowing difficulty R/T respiratory status as evidenced by pt on T-collar, now back the vent, PEG dep, TF changed to low rate at this time due to episodes of vomiting + residuals. * Increased kcal/prot needs R/T wound healing as evidenced by BL buttocks and sacral wound photos, refer to WC reynaldo. (CURRENT TF:Glucerna 1.5 @35ml) ENTERAL NUTRITION RECOMMENDATIONS: VITAL AF 1.2 @ 55ml/hr x 24 hrs to provide 1320ml, 1584kcal, 99g prot, 1060ml free water - Once medically appropriate to resume TF, rec to initiate elemental and carb control formula of Vital 1.2 for possible improved tolerance - Initiate VITAL 1.2 @ 25ml/hr x 6hrs, advance 10ml q 4-6 hrs as tolerated to goal rate - Flush per MD/ HOB over 30 degrees ADDITIONAL RECOMMENDATIONS: 1) Re-calibrated bedscale wt for accurate CBW 2) Wound healing: Add Cristian 1pkt BID w/ improved Tf tolerace + MVI x1 daily 3) Monitor lytes, replete as needed (low Mg, K) 4) Monitor NPO status, ability to resume TF. -> held on and off due to vomiting since 02/02 5) SSI prn resume tube feeds (4) Chronic vegetative state Assessment & Plan: incontinence of urine and stool. can soil dressings. nurses doing great job with monitoring and changing prn (5) Leukocytosis Walter Madera Mar 10, 2019 21:05
--- NOTE | 2019-03-10 23:00 | NUR ---
NURSE NOTES: Floresita mcpherson, pts daughter stated she does not want pt repositioned at this time. she stated to return in an hr. pt remains stable. will reassess at 0000 (mid night.)
--- NOTE | 2019-03-10 23:15 | Progress Note ---
DATE: 03/10/2019 CARDIOLOGY PROGRESS NOTE SUBJECTIVE: The patient remains on T-collar, suctioning [id number] is required. No new signs. No signs of bleeding noted. Monitor sinus rhythm. OBJECTIVE: VITAL SIGNS: Blood pressure 107/32 to 161/83, heart rate 71 to 107, respiratory rate 18 to 23, afebrile. LUNGS: Bilateral rhonchi. No wheezing. CARDIAC: Regular rhythm and rate. Normal S1, S2. ABDOMEN: Soft. G-tube intact. EXTREMITIES: Trace dependent edema. IMPRESSION: 1. Respiratory failure. 2. Sepsis. 3. Hypertensive heart disease. 4. Chronic diastolic congestive heart failure. 5. Moderate protein-calorie malnutrition. 6. Healthcare-acquired pneumonia. 7. Anemia of chronic disease and chronic kidney disease. 8. Recovered shock due to sepsis. PLAN: 1. Skin care. 2. Nutritional support by feeding tube. 3. Respiratory hygiene. 4. P.r.n. antihypertensives for blood pressure spikes. 5. No role for diuretics at this time. 6. We will follow with you during this hospital stay. 7. We will continue to observe for rebound tachycardia since beta-blockers have been discontinued at family request. Bg Hagen M.D. DR: SHIRA JOB#: [id number] CC:
--- NOTE | 2019-03-10 23:59 | NUR ---
NURSE NOTES: pt is repositioned and reassessed with RN JESSICA and Rt Joann. pt remains stable.
[2019-03-11] VITALS (24 sets, daily range): BP systolic 111–169; BP diastolic 39–100
[2019-03-11] MEDS: Metoclopramide 10mg/2ml Inj IVP SCH ×4 (01:24→20:15)
[2019-03-11] MEDS: Albuterol/Ipratropium 3ml neb HHN SCH ×6 (02:55→23:06)
[2019-03-11] MEDS: Acetylcysteine 20% Soln 4ml HHN SCH ×4 (02:57→14:57)
--- NOTE | 2019-03-11 03:14 | NUR ---
NURSE NOTES: called MD CABA Primary line. stated pt is having excessive secretions and frothy sputum according to RT CLAUDIA. RT and retail shift supervisor Linnea requested Atropine for secretions PRN. awaiting call back/ awaiting new orders.
--- NOTE | 2019-03-11 03:59 | NUR ---
NURSE NOTES: called MD CABA Primary line. stated pt is having excessive secretions and frothy sputum according to RT CLAUDIA. RT and charge master coordinator Linnea requested Atropine and promethazine for secretions and excessive PRN. awaiting call back/ awaiting new orders.
--- NOTE | 2019-03-11 04:20 | NUR ---
NURSE NOTES: Spoke with RT Parish abrams RT, relief charge nurse Linnea. RT and relief charge nurse feel Mucomyst is not needed due to excessive secretions. additionally, Rt jose alberto and Rt Parish feel amikacin med is not working, they are requesting tobramycin instead. additionally, Rts feel thrombocytin should treat frothy sputum. will relay to morning RN. will relay to MD Beltrán during morning rounds.
[2019-03-11 05:41] LABS: BASOPHILS % (AUTO) 0.3 % (0.0-2.0); EOSINOPHILS % (AUTO) 3.4 % (0.0-3.0); HEMATOCRIT 27.7 % (37.0-47.0); HEMOGLOBIN 9.3 G/DL (12.0-16.0); LYMPHOCYTES % (AUTO) 27.1 % (20.0-45.0); MEAN CORPUSCULAR VOLUME 82 FL (80-99); MONOCYTES % (AUTO) 4.3 % (1.0-10.0); PLATELET COUNT 177 K/UL (150-450); RED BLOOD COUNT 3.37 M/UL (4.20-5.40); RED CELL DISTRIBUTION WIDTH 14.5 % (11.6-14.8); WHITE BLOOD COUNT 10.9 K/UL (4.8-10.8)
[2019-03-11 06:11] LABS: ALANINE AMINOTRANSFERASE 50 U/L (12-78); ALBUMIN 2.9 G/DL (3.4-5.0); ALBUMIN/GLOBULIN RATIO 0.5 (1.0-2.7); ALKALINE PHOSPHATASE 143 U/L (46-116); ANION GAP 5 mmol/L (5-15); ASPARTATE AMINO TRANSFERASE 38 U/L (15-37); BILIRUBIN,TOTAL 0.2 MG/DL (0.2-1.0); BLOOD UREA NITROGEN 14 mg/dL (7-18); CALCIUM 9.1 MG/DL (8.5-10.1); CARBON DIOXIDE 30 MMOL/L (21-32); CHLORIDE 108 MMOL/L (98-107); CREATININE 0.9 MG/DL (0.55-1.30); POTASSIUM 3.4 MMOL/L (3.5-5.1); SODIUM 143 MMOL/L (136-145)
--- NOTE | 2019-03-11 07:08 | NUR ---
NURSE NOTES: spoke with MD Vaughan about pt possibly having a small vomiting episode, and continuous cough with expensive secretions. reported to MD Vaughan that pt may not be tolerating G tube feeding. he stated he will be in talks with Chika (daughter) about J tube.
--- NOTE | 2019-03-11 07:10 | NUR ---
HAND-OFF: Report given to [facility]. Pt remains stable.
--- NOTE | 2019-03-11 07:15 | NUR ---
NURSE NOTES: Patient received lying in bed, eyes open spontaneously, non-verbal. On T-piece FiO2 28%, Oxygen saturation 100%. No respiratory distress. Patient provided with suctioning. Head of bed elevated. Patient with g-tube, feeding held per Dr. Vaughan's order. No residual noted. Abdomen soft, non-tender, distended. No vomiting noted. Right upper arm PICC running D5 1/2 NS at 75 ml/hr, asymptomatic. Pure wick catheter in place. Extremities elevated, heels offloaded. Sinus Tachycardia on the monitor rate of 110s. Will continue to monitor.
[2019-03-11] MEDS: Bacitracin Oint 15gm Tube TOPIC SCH ×3 (08:08→17:06)
[2019-03-11] MEDS: levETIRAcetam 500mg/5ml Liquid GT SCH ×2 (08:08→20:16)
[2019-03-11] MEDS: D5 1/2NS 1,000 ML IV SCH ×2 (08:09→21:55)
[2019-03-11] MEDS: Heparin 5000 units/ml inj SUBQ SCH ×2 (08:12→20:18)
[2019-03-11] MEDS: Amikacin for Inhalation 2ML INH SCH ×2 (08:23→22:00)
--- NOTE | 2019-03-11 09:00 | NUR ---
NURSE NOTES: Patient provided oral care, requires frequent suctioning, tolerated well. Repositioned patient. Bilateral heels offloaded. Patient on P200 mattress.
--- NOTE | 2019-03-11 09:03 | General Progress Note ---
Assessment/Plan Status: stable, progressing Assessment/Plan: Assessment - N/V, periodic, including suctioning of feeds from mouth - suspect due to gastroparesis, possibly also from suctioning reflex - DTR declines GJ conversion. - another message left on her VM - will Rx with reglan, short term - suction gently - Elevated Alk phos / LFT - CT negative - abd U/S negative - check hepatitis serologies - negative - Anemia with OB (-) stools - Resp failure, s/p Trach - dysphagia, s/p PEG --> s/p GT change - OBS - minor GT tract inflammation / infection - poor Px Recommendations - laxative PRN - antibiotic ointment to GT site PRN - Resume feeds to prevent malnutrition - aspiration precautions - elevate HOB - PPI - will d/w DTR again Subjective Allergies: Coded Allergies: CODEINE (Verified Allergy, Unknown, HIVES, 09/15/09) Subjective seen in am d/w staff rn - report difficulty with TF regurgitation TF held again message left with DTR this am to rediscuss GJ tube Objective Last 24 Hour Vital Signs Date Time Temp Pulse Resp B/P (MAP) Pulse Ox O2 Delivery O2 Flow Rate FiO2 03/11/19 08:00 6.0 28 03/11/19 08:00 98.8 91 23 135/52 (79) 98 03/11/19 07:11 100 T-Piece 6.0 28 03/11/19 07:10 93 22 100 T-Piece 6.0 28 107 20 100 03/11/19 07:00 94 19 145/67 (93) 99 03/11/19 06:00 96 20 161/59 (93) 99 03/11/19 05:00 98 20 137/51 (79) 98 03/11/19 04:00 97.8 105 19 139/48 (78) 99 03/11/19 04:00 6.0 28 03/11/19 04:00 98 03/11/19 04:00 T-piece 6.0 03/11/19 03:05 115 19 100 T-Piece 6.0 28 03/11/19 03:00 97 20 156/95 (115) 99 03/11/19 02:55 112 21 100 T-Piece 6.0 28 03/11/19 02:00 88 20 158/66 (96) 98 03/11/19 01:23 100 T-Piece 6.0 28 03/11/19 01:00 99 20 158/56 (90) 97 03/11/19 00:00 6.0 28 03/11/19 00:00 T-piece 6.0 03/11/19 00:00 78 03/11/19 00:00 98.1 103 20 122/93 (103) 99 03/10/19 23:45 97 18 100 T-Piece 6.0 28 03/10/19 23:30 102 18 100 T-Piece 6.0 28 03/10/19 23:00 77 20 130/43 (72) 99 03/10/19 22:00 84 20 155/61 (92) 98 03/10/19 21:49 95 22 100 T-Piece 6.0 28 03/10/19 21:39 90 21 100 T-Piece 6.0 28 03/10/19 21:00 90 20 154/54 (87) 99 03/10/19 20:00 75 03/10/19 20:00 97.9 86 19 123/57 (79) 99 03/10/19 20:00 6.0 28 03/10/19 20:00 T-piece 6.0 03/10/19 19:17 84 23 100 T-Piece 6.0 28 03/10/19 19:02 100 T-Piece 6.0 28 03/10/19 19:02 74 19 100 T-Piece 6.0 28 03/10/19 19:00 77 19 133/49 (77) 100 03/10/19 18:00 82 22 100/45 (63) 100 03/10/19 17:00 82 22 116/43 (67) 99 03/10/19 16:00 80 03/10/19 16:00 6.0 28 03/10/19 16:00 T-piece 6.0 03/10/19 16:00 97.8 90 20 136/47 (76) 98 03/10/19 15:40 93 18 100 T-Piece 6.0 28 107 23 96 03/10/19 15:00 97 18 161/83 (109) 100 03/10/19 14:00 76 19 122/39 (66) 100 03/10/19 13:00 71 21 107/32 (57) 100 03/10/19 12:30 98 T-Piece 6.0 28 03/10/19 12:00 92 03/10/19 12:00 98.0 83 22 133/33 (66) 98 03/10/19 12:00 T-piece 6.0 03/10/19 12:00 6.0 28 03/10/19 11:00 83 23 86/30 (48) 94 03/10/19 10:45 74 22 100 T-Piece 6.0 28 88 24 100 03/10/19 10:30 88 24 100 T-Piece 6.0 28 89 25 100 03/10/19 10:00 89 19 134/42 (72) 100 Intake and Output 03/10/19 03/11/19 19:00 07:00 Intake Total 1280 ml 1035 ml Output Total 350 ml 500 ml Balance 930 ml 535 ml Free Water 30 ml IV Total 900 ml 825 ml Tube Feeding 350 ml 210 ml Output Urine Total 350 ml 500 ml # Bowel Movements 1 4 Laboratory Tests 03/11/19 04:00: White Blood Count 10.9H, Red Blood Count 3.37L, Hemoglobin 9.3L, Hematocrit 27.7L, Mean Corpuscular Volume 82, Mean Corpuscular Hemoglobin 27.7, Mean Corpuscular Hemoglobin Concent 33.7, Red Cell Distribution Width 14.5, Platelet Count 177, Mean Platelet Volume 7.1, Neutrophils (%) (Auto) 65.0, Lymphocytes (% ) (Auto) 27.1, Monocytes (%) (Auto) 4.3, Eosinophils (%) (Auto) 3.4H, Basophils (%) (Auto) 0.3, Sodium Level 143, Potassium Level 3.4L, Chloride Level 108H, Carbon Dioxide Level 30, Anion Gap 5, Blood Urea Nitrogen 14, Creatinine 0.9, Estimat Glomerular Filtration Rate , Glucose Level 94, Calcium Level 9.1, Total Bilirubin 0.2, Aspartate Amino Transf (AST/SGOT) 38H, Alanine Aminotransferase ( ALT/SGPT) 50, Alkaline Phosphatase 143H, Total Protein 8.2, Albumin 2.9L, Globulin 5.3, Albumin/Globulin Ratio 0.5L Height (Feet): 5 Height (Inches): 5.00 Weight (Pounds): 135 Objective Debilitated AA woman NCAT (+) trach coarse ronchi RR obese abd, (+) GT no edema Khorrami,Payman MD Mar 11, 2019 09:02
--- NOTE | 2019-03-11 09:14 | General Progress Note ---
Assessment/Plan Problem List: (1) Seizure ICD Codes: R56.9 - Unspecified convulsions SNOMED: 31729699 (2) Anemia ICD Codes: D64.9 - Anemia, unspecified SNOMED: 626964265 Qualifiers: Qualified Codes: D64.9 - Anemia, unspecified (3) Sepsis ICD Codes: A41.9 - Sepsis, unspecified organism SNOMED: 61793932, 862622967 Qualifiers: Qualified Codes: A41.9 - Sepsis, unspecified organism (4) Respiratory failure with hypoxia ICD Codes: J96.91 - Respiratory failure, unspecified with hypoxia SNOMED: 78308220714897999 Qualifiers: Qualified Codes: J96.21 - Acute and chronic respiratory failure with hypoxia (5) HCAP (healthcare-associated pneumonia) ICD Codes: J18.9 - Pneumonia, unspecified organism SNOMED: 983824144, 892186723 (6) Sacral decubitus ulcer ICD Codes: L89.159 - Pressure ulcer of sacral region, unspecified stage SNOMED: 776448394 (7) HTN (hypertension) ICD Codes: I10 - Essential (primary) hypertension SNOMED: 05226468 (8) Chronic vegetative state ICD Codes: R40.3 - Persistent vegetative state SNOMED: 56919938 (9) Chronic respiratory failure ICD Codes: J96.10 - Chronic respiratory failure, unspecified whether with hypoxia or hypercapnia SNOMED: 18894264 (10) Limited mobility ICD Codes: Z74.09 - Other reduced mobility SNOMED: 3047842 Status: stable, progressing Assessment/Plan: vent prn as needed resp rx suctioning as needed gt feeds with caution/as tolerated bowel regime monitor residuals sx rx monitor bp monitor cbc monitor for bleeding ?j tube Subjective ROS Limited/Unobtainable: No Constitutional: Reports: malaise, weakness HEENT: Reports: no symptoms Cardiovascular: Reports: no symptoms Respiratory: Reports: cough, shortness of breath, sputum Gastrointestinal/Abdominal: Reports: difficulty swallowing Genitourinary: Reports: no symptoms Neurologic/Psychiatric: Reports: pre-existing deficit, seizure Endocrine: Reports: no symptoms Hematologic/Lymphatic: Reports: anemia Allergies: Coded Allergies: CODEINE (Verified Allergy, Unknown, HIVES, 09/15/09) All Systems: reviewed and negative except above Subjective still not tolerating feeds. increased congestion. feeds on hold. pt getting ivf. Dtr declined J tube conversion in the past Objective Last 24 Hour Vital Signs Date Time Temp Pulse Resp B/P (MAP) Pulse Ox O2 Delivery O2 Flow Rate FiO2 03/11/19 08:00 6.0 28 03/11/19 08:00 T-piece 6.0 03/11/19 08:00 98.8 91 23 135/52 (79) 98 03/11/19 07:11 100 T-Piece 6.0 28 03/11/19 07:10 93 22 100 T-Piece 6.0 28 107 20 100 03/11/19 07:00 94 19 145/67 (93) 99 03/11/19 06:00 96 20 161/59 (93) 99 03/11/19 05:00 98 20 137/51 (79) 98 03/11/19 04:00 97.8 105 19 139/48 (78) 99 03/11/19 04:00 6.0 28 03/11/19 04:00 98 03/11/19 04:00 T-piece 6.0 03/11/19 03:05 115 19 100 T-Piece 6.0 28 03/11/19 03:00 97 20 156/95 (115) 99 03/11/19 02:55 112 21 100 T-Piece 6.0 28 03/11/19 02:00 88 20 158/66 (96) 98 03/11/19 01:23 100 T-Piece 6.0 28 03/11/19 01:00 99 20 158/56 (90) 97 03/11/19 00:00 6.0 28 03/11/19 00:00 T-piece 6.0 03/11/19 00:00 78 03/11/19 00:00 98.1 103 20 122/93 (103) 99 03/10/19 23:45 97 18 100 T-Piece 6.0 28 03/10/19 23:30 102 18 100 T-Piece 6.0 28 03/10/19 23:00 77 20 130/43 (72) 99 03/10/19 22:00 84 20 155/61 (92) 98 03/10/19 21:49 95 22 100 T-Piece 6.0 28 03/10/19 21:39 90 21 100 T-Piece 6.0 28 03/10/19 21:00 90 20 154/54 (87) 99 03/10/19 20:00 75 03/10/19 20:00 97.9 86 19 123/57 (79) 99 03/10/19 20:00 6.0 28 03/10/19 20:00 T-piece 6.0 03/10/19 19:17 84 23 100 T-Piece 6.0 28 03/10/19 19:02 100 T-Piece 6.0 28 03/10/19 19:02 74 19 100 T-Piece 6.0 28 03/10/19 19:00 77 19 133/49 (77) 100 03/10/19 18:00 82 22 100/45 (63) 100 03/10/19 17:00 82 22 116/43 (67) 99 03/10/19 16:00 80 03/10/19 16:00 6.0 28 03/10/19 16:00 T-piece 6.0 03/10/19 16:00 97.8 90 20 136/47 (76) 98 03/10/19 15:40 93 18 100 T-Piece 6.0 28 107 23 96 03/10/19 15:00 97 18 161/83 (109) 100 03/10/19 14:00 76 19 122/39 (66) 100 03/10/19 13:00 71 21 107/32 (57) 100 03/10/19 12:30 98 T-Piece 6.0 28 03/10/19 12:00 92 03/10/19 12:00 98.0 83 22 133/33 (66) 98 03/10/19 12:00 T-piece 6.0 03/10/19 12:00 6.0 28 03/10/19 11:00 83 23 86/30 (48) 94 03/10/19 10:45 74 22 100 T-Piece 6.0 28 88 24 100 03/10/19 10:30 88 24 100 T-Piece 6.0 28 89 25 100 03/10/19 10:00 89 19 134/42 (72) 100 Intake and Output 03/10/19 03/11/19 18:59 06:59 Intake Total 1245 ml 1145 ml Output Total 350 ml 400 ml Balance 895 ml 745 ml Free Water 30 ml IV Total 900 ml 900 ml Tube Feeding 315 ml 245 ml Output Urine Total 350 ml 400 ml # Bowel Movements 1 4 Laboratory Tests 03/11/19 04:00: White Blood Count 10.9H, Red Blood Count 3.37L, Hemoglobin 9.3L, Hematocrit 27.7L, Mean Corpuscular Volume 82, Mean Corpuscular Hemoglobin 27.7, Mean Corpuscular Hemoglobin Concent 33.7, Red Cell Distribution Width 14.5, Platelet Count 177, Mean Platelet Volume 7.1, Neutrophils (%) (Auto) 65.0, Lymphocytes (% ) (Auto) 27.1, Monocytes (%) (Auto) 4.3, Eosinophils (%) (Auto) 3.4H, Basophils (%) (Auto) 0.3, Sodium Level 143, Potassium Level 3.4L, Chloride Level 108H, Carbon Dioxide Level 30, Anion Gap 5, Blood Urea Nitrogen 14, Creatinine 0.9, Estimat Glomerular Filtration Rate , Glucose Level 94, Calcium Level 9.1, Total Bilirubin 0.2, Aspartate Amino Transf (AST/SGOT) 38H, Alanine Aminotransferase ( ALT/SGPT) 50, Alkaline Phosphatase 143H, Total Protein 8.2, Albumin 2.9L, Globulin 5.3, Albumin/Globulin Ratio 0.5L Height (Feet): 5 Height (Inches): 5.00 Weight (Pounds): 135 Objective General Appearance: WD/WN, confused. on trach collar Neck: supple Cardiovascular: normal rate, regular rhythm Respiratory/Chest: chest wall non-tender, rhonchi - bilaterally(minimal) Abdomen: normal bowel sounds, non tender, soft, no organomegaly Edema: no edema noted Arm (L), no edema noted Arm (R), no edema noted Leg (L), no edema noted Leg (R), no edema noted Pedal (L), no edema noted Pedal (R), no edema noted Generalized Neurologic: disoriented, unresponsive, aphasia Irvin Beltrán MD Mar 11, 2019 09:14
--- NOTE | 2019-03-11 10:15 | NUR ---
NURSE NOTES: Spoke to Dr. Yang, unable to change Amikacin INH to Tobramycin at this time due to patient's infection.
--- NOTE | 2019-03-11 10:25 | Infectious Diseases Prog Note ---
"Assessment/Plan Assessment/Plan antibiotics : inhaled amikacin A 1. klebsiella | providencia pneumonia 2. respiratory failure 3. hypertension 4. CVA 5. dementia 6. sacral decubitus ulcer 7. rectal VRE colonization P 1. continue inhaled amikacin 5 more days 2. will follow up cultures Subjective ROS Limited/Unobtainable: Yes Allergies: Coded Allergies: CODEINE (Verified Allergy, Unknown, HIVES, 09/15/09) Objective Vital Signs Last 24 Hour Vital Signs Date Time Temp Pulse Resp B/P (MAP) Pulse Ox O2 Delivery O2 Flow Rate FiO2 03/11/19 08:00 6.0 28 03/11/19 08:00 T-piece 6.0 03/11/19 08:00 98.8 91 23 135/52 (79) 98 03/11/19 07:11 100 T-Piece 6.0 28 03/11/19 07:10 93 22 100 T-Piece 6.0 28 107 20 100 03/11/19 07:00 94 19 145/67 (93) 99 03/11/19 06:00 96 20 161/59 (93) 99 03/11/19 05:00 98 20 137/51 (79) 98 03/11/19 04:00 97.8 105 19 139/48 (78) 99 03/11/19 04:00 6.0 28 03/11/19 04:00 98 03/11/19 04:00 T-piece 6.0 03/11/19 03:05 115 19 100 T-Piece 6.0 28 03/11/19 03:00 97 20 156/95 (115) 99 03/11/19 02:55 112 21 100 T-Piece 6.0 03/11/19 02:00 88 20 158/66 (96) 98 03/11/19 01:23 100 T-Piece 6.0 28 03/11/19 01:00 99 20 158/56 (90) 97 03/11/19 00:00 6.0 28 03/11/19 00:00 T-piece 6.0 03/11/19 00:00 78 03/11/19 00:00 98.1 103 20 122/93 (103) 99 03/10/19 23:45 97 18 100 T-Piece 6.0 03/10/19 23:30 102 18 100 T-Piece 6.0 28 03/10/19 23:00 77 20 130/43 (72) 99 03/10/19 22:00 84 20 155/61 (92) 98 03/10/19 21:49 95 22 100 T-Piece 6.0 28 03/10/19 21:39 90 21 100 T-Piece 6.0 28 03/10/19 21:00 90 20 154/54 (87) 99 03/10/19 20:00 75 03/10/19 20:00 97.9 86 19 123/57 (79) 99 03/10/19 20:00 6.0 28 03/10/19 20:00 T-piece 6.0 03/10/19 19:17 84 23 100 T-Piece 6.0 28 03/10/19 19:02 100 T-Piece 6.0 28 03/10/19 19:02 74 19 100 T-Piece 6.0 28 03/10/19 19:00 77 19 133/49 (77) 100 03/10/19 18:00 82 22 100/45 (63) 100 03/10/19 17:00 82 22 116/43 (67) 99 03/10/19 16:00 80 03/10/19 16:00 6.0 28 03/10/19 16:00 T-piece 6.0 03/10/19 16:00 97.8 90 20 136/47 (76) 98 03/10/19 15:40 93 18 100 T-Piece 6.0 28 107 23 96 03/10/19 15:00 97 18 161/83 (109) 100 03/10/19 14:00 76 19 122/39 (66) 100 03/10/19 13:00 71 21 107/32 (57) 100 03/10/19 12:30 98 T-Piece 6.0 28 03/10/19 12:00 92 03/10/19 12:00 98.0 83 22 133/33 (66) 98 03/10/19 12:00 T-piece 6.0 03/10/19 12:00 6.0 28 03/10/19 11:00 83 23 86/30 (48) 94 03/10/19 10:45 74 22 100 T-Piece 6.0 28 88 24 100 03/10/19 10:30 88 24 100 T-Piece 6.0 28 89 25 100 Height (Feet): 5 Height (Inches): 5.00 Weight (Pounds): 135 HEENT: status post trach Respiratory/Chest: lungs clear Cardiovascular: normal rate, regular rhythm, no gallop/murmur Abdomen: soft, non tender, other - GT Extremities: no edema, other - right arm PICC Microbiology Date/Time Source Procedure Growth Status 03/08/19 20:00 Stool Clostridium difficile Toxin Assay - Final Complete Laboratory Tests Test 03/11/19 04:00 White Blood Count 10.9 K/UL (4.8-10.8) H Red Blood Count 3.37 M/UL (4.20-5.40) L Hemoglobin 9.3 G/DL (12.0-16.0) L Hematocrit 27.7 % (37.0-47.0) L Mean Corpuscular Volume 82 FL (80-99) Mean Corpuscular Hemoglobin 27.7 PG (27.0-31.0) Mean Corpuscular Hemoglobin Concent 33.7 G/DL (32.0-36.0) Red Cell Distribution Width 14.5 % (11.6-14.8) Platelet Count 177 K/UL (150-450) Mean Platelet Volume 7.1 FL (6.5-10.1) Neutrophils (%) (Auto) 65.0 % (45.0-75.0) Lymphocytes (%) (Auto) 27.1 % (20.0-45.0) Monocytes (%) (Auto) 4.3 % (1.0-10.0) Eosinophils (%) (Auto) 3.4 % (0.0-3.0) H Basophils (%) (Auto) 0.3 % (0.0-2.0) Sodium Level 143 MMOL/L (136-145) Potassium Level 3.4 MMOL/L (3.5-5.1) L Chloride Level 108 MMOL/L (98-107) H Carbon Dioxide Level 30 MMOL/L (21-32) Anion Gap 5 mmol/L (5-15) Blood Urea Nitrogen 14 mg/dL (7-18) Creatinine 0.9 MG/DL (0.55-1.30) Estimat Glomerular Filtration Rate mL/min (>60) Glucose Level 94 MG/DL (74-106) Calcium Level 9.1 MG/DL (8.5-10.1) Total Bilirubin 0.2 MG/DL (0.2-1.0) Aspartate Amino Transf (AST/SGOT) 38 U/L (15-37) H Alanine Aminotransferase (ALT/SGPT) 50 U/L (12-78) Alkaline Phosphatase 143 U/L (46-116) H Total Protein 8.2 G/DL (6.4-8.2) Albumin 2.9 G/DL (3.4-5.0) L Globulin 5.3 g/dL Albumin/Globulin Ratio 0.5 (1.0-2.7) L Current Medications Medications (Trade) Dose Ordered Sig/Maicol Route PRN Reason Start Time Stop Time Status Last Admin Dose Admin Acetylcysteine (Mucomyst) 200 mg Q4HRT [facility] 02/28/19 03:00 03/29/19 16:59 03/10/19 23:30 Albuterol/ Ipratropium (Albuterol/ Ipratropium) 3 ml Q4HRT [facility] 03/10/19 03:00 03/15/19 02:59 03/11/19 07:10 Amikacin Sulfate (Amikin) 500 mg Q12HR@10,22 INH 03/07/19 11:00 03/14/19 10:59 03/10/19 21:39 Atropine Sulfate (Atropine Opth Adriana) 2 drop TID SL 03/07/19 09:00 04/06/19 08:59 03/11/19 08:08 Bacitracin (Bacitracin 15gm tube) 1 applic THREE TIMES A DAY TOPIC 02/28/19 18:30 03/30/19 18:29 03/11/19 08:08 Chlorhexidine Gluconate (Cesilia-Hex 2%) 1 applic DAILY@2000 TOPIC 02/18/19 20:00 03/12/19 19:59 03/10/19 20:17 Dextrose/Sodium Chloride 1,000 ml @ 75 mls/hr [id number] IV 03/07/19 11:15 04/06/19 11:14 03/11/19 08:09 Famotidine (Pepcid) 20 mg BID GT 03/02/19 18:00 04/01/19 17:59 03/11/19 08:08 Heparin Sodium (Porcine) (Heparin 5000 units/ml) 5,000 units EVERY 12 HOURS SUBQ 02/18/19 09:00 03/16/19 23:14 03/11/19 08:12 Levetiracetam (Keppra) 750 mg Q12HR GT 02/18/19 09:00 03/16/19 23:29 03/11/19 08:08 Metoclopramide HCl (Reglan) 5 mg Q6H IVP 03/10/19 02:00 03/24/19 01:59 03/11/19 08:08 Potassium Chloride 100 ml @ 100 mls/hr Q1HR IVPB 03/11/19 09:00 03/11/19 11:59 03/11/19 09:27 Geovany Yang MD Mar 11, 2019 10:25"
--- NOTE | 2019-03-11 11:30 | Nephrology Progress Note ---
Assessment/Plan Problem List: (1) Acute renal failure (ARF) Assessment: Cr stable (2) Chronic respiratory failure (3) Anemia (4) Sepsis Assessment Acute renal failure Respiratory failure - Trach Low Mag- Low k , Low Na Anemia UTI / Sepsis Proteinuria / HypoAlbuminemia high Trigs Sz decubs bed bound DNR Plan lab reviewed bolus Albumin as needed K and Mag and Phos supplement as needed Hydrate as needed Urine studies avoid Nephrotoxics mag K Phos supplements as needed monitor renal parameters Subjective ROS Limited/Unobtainable: Yes Objective Objective Last 24 Hour Vital Signs Date Time Temp Pulse Resp B/P (MAP) Pulse Ox O2 Delivery O2 Flow Rate FiO2 03/11/19 11:00 94 24 129/100 (110) 100 03/11/19 10:45 90 20 100 T-Piece 6.0 28 93 24 100 03/11/19 10:00 96 21 152/58 (89) 100 03/11/19 09:00 92 22 135/72 (93) 100 03/11/19 08:00 98 03/11/19 08:00 6.0 28 03/11/19 08:00 T-piece 6.0 03/11/19 08:00 98.8 91 23 135/52 (79) 98 03/11/19 07:11 100 T-Piece 6.0 28 03/11/19 07:10 93 22 100 T-Piece 6.0 28 107 20 100 03/11/19 07:00 94 19 145/67 (93) 99 03/11/19 06:00 96 20 161/59 (93) 99 03/11/19 05:00 98 20 137/51 (79) 98 03/11/19 04:00 97.8 105 19 139/48 (78) 99 03/11/19 04:00 6.0 28 03/11/19 04:00 98 03/11/19 04:00 T-piece 6.0 03/11/19 03:05 115 19 100 T-Piece 6.0 28 03/11/19 03:00 97 20 156/95 (115) 99 03/11/19 02:55 112 21 100 T-Piece 6.0 28 03/11/19 02:00 88 20 158/66 (96) 98 03/11/19 01:23 100 T-Piece 6.0 28 12/11/19 01:00 99 20 158/56 (90) 97 03/11/19 00:00 6.0 28 03/11/19 00:00 T-piece 6.0 03/11/19 00:00 78 03/11/19 00:00 98.1 103 20 122/93 (103) 99 03/10/19 23:45 97 18 100 T-Piece 6.0 28 03/10/19 23:30 102 18 100 T-Piece 6.0 28 03/10/19 23:00 77 20 130/43 (72) 99 03/10/19 22:00 84 20 155/61 (92) 98 03/10/19 21:49 95 22 100 T-Piece 6.0 28 03/10/19 21:39 90 21 100 T-Piece 6.0 28 03/10/19 21:00 90 20 154/54 (87) 99 03/10/19 20:00 75 03/10/19 20:00 97.9 86 19 123/57 (79) 99 03/10/19 20:00 6.0 28 03/10/19 20:00 T-piece 6.0 03/10/19 19:17 84 23 100 T-Piece 6.0 28 03/10/19 19:02 100 T-Piece 6.0 28 03/10/19 19:02 74 19 100 T-Piece 6.0 28 03/10/19 19:00 77 19 133/49 (77) 100 03/10/19 18:00 82 22 100/45 (63) 100 03/10/19 17:00 82 22 116/43 (67) 99 03/10/19 16:00 80 03/10/19 16:00 6.0 28 03/10/19 16:00 T-piece 6.0 03/10/19 16:00 97.8 90 20 136/47 (76) 98 03/10/19 15:40 93 18 100 T-Piece 6.0 28 107 23 96 03/10/19 15:00 97 18 161/83 (109) 100 03/10/19 14:00 76 19 122/39 (66) 100 03/10/19 13:00 71 21 107/32 (57) 100 03/10/19 12:30 98 T-Piece 6.0 28 03/10/19 12:00 92 03/10/19 12:00 98.0 83 22 133/33 (66) 98 03/10/19 12:00 T-piece 6.0 03/10/19 12:00 6.0 28 Intake and Output 03/10/19 03/11/19 18:59 06:59 Intake Total 1245 ml 1145 ml Output Total 350 ml 400 ml Balance 895 ml 745 ml Free Water 30 ml IV Total 900 ml 900 ml Tube Feeding 315 ml 245 ml Output Urine Total 350 ml 400 ml # Bowel Movements 1 4 Laboratory Tests 03/11/19 04:00: White Blood Count 10.9H, Red Blood Count 3.37L, Hemoglobin 9.3L, Hematocrit 27.7L, Mean Corpuscular Volume 82, Mean Corpuscular Hemoglobin 27.7, Mean Corpuscular Hemoglobin Concent 33.7, Red Cell Distribution Width 14.5, Platelet Count 177, Mean Platelet Volume 7.1, Neutrophils (%) (Auto) 65.0, Lymphocytes (% ) (Auto) 27.1, Monocytes (%) (Auto) 4.3, Eosinophils (%) (Auto) 3.4H, Basophils (%) (Auto) 0.3, Sodium Level 143, Potassium Level 3.4L, Chloride Level 108H, Carbon Dioxide Level 30, Anion Gap 5, Blood Urea Nitrogen 14, Creatinine 0.9, Estimat Glomerular Filtration Rate , Glucose Level 94, Calcium Level 9.1, Total Bilirubin 0.2, Aspartate Amino Transf (AST/SGOT) 38H, Alanine Aminotransferase ( ALT/SGPT) 50, Alkaline Phosphatase 143H, Total Protein 8.2, Albumin 2.9L, Globulin 5.3, Albumin/Globulin Ratio 0.5L Height (Feet): 5 Height (Inches): 5.00 Weight (Pounds): 135 General Appearance: no apparent distress EENT: other - trach Cardiovascular: tachycardia Respiratory/Chest: decreased breath sounds Abdomen: distended Objective no change Eric Cortez MD Mar 11, 2019 11:30
--- NOTE | 2019-03-11 11:52 | NUR ---
NURSE NOTES: Dr. Beltrán made aware of producing excessive saliva and drooling. Patient unable to follow commands in opening mouth and lifting tongue for atropine drops. Suggested for scopolamine, MD ordered to add medication. Noted and carried out.
--- NOTE | 2019-03-11 13:00 | NUR ---
NURSE NOTES: Dr. Chan made aware of excessive sputum production, MD gave order to discontinue Mucomyst.
[2019-03-11] MEDS: TransDerm Scop 1.5mg/72HR Patch TDERMAL SCH (13:52)
--- NOTE | 2019-03-11 14:00 | NUR ---
NURSE NOTES: Patient noted with large amount of urine, voided, pure wick was out. Provided perineal care. Urine noted to have very strong smell. Pressure ulcer dressings changed to sacral, left and right ischial. Replaced pure wick. Patient repositioned with heels offloaded. Oral care provided along with frequent oral and tracheal suctioning for excessive sputum / saliva production. HOB elevated for aspiration precaution. Addendum: 03/11/19 at 1505 by Tom Gonzalez RN Also provided wound care to Left hand wound, cleansed with NS and applied dressing with kerlix.
--- NOTE | 2019-03-11 14:25 | NUR ---
CASE MANAGEMENT:REVIEW 03/11/19 SI: SEPSIS. PNA SACRAL DECUB. CHRONIC RESP FAILURE 98.7 91 19 142/45 99% ON 6L/28% FIO2@ 28% ON T-PIECE VIA TRACH WBC+10.9 IS: IVF@75/HR AMIKACIN INH Q12HRS ATROPINE SL TID PEPCID GT BID MUCOMYST HHN Q4HRS HEPARIN SQ Q12 KEPPRA GT Q12 : ICU STATUS PLAN: MONITOR RESIDUAL
--- NOTE | 2019-03-11 16:00 | NUR ---
NURSE NOTES: Patient provided with oral and tracheal suctioning. Patient producing large amount of frothy sputum mixed with saliva. HOB kept elevated. No acute distress noted. Oxygen saturation at 100%.
[2019-03-11] MEDS ORDERED: NS 275ml ONE (16:32)
[2019-03-11] MEDS ORDERED: D5 1/2NS 1000ml IV ONE (16:32)
[2019-03-11] MEDS ORDERED: Tubing IV Secondary IV ONE (16:40)
--- NOTE | 2019-03-11 17:32 | Surgery Progress Note ---
Surgery Progress Note Subjective Additional Comments Patient seen and examined bedside. Continues to have significant secretions requiring extensive suctioning. Tube feeds are held currently some regurgitation identified still. Labs noted. Exams otherwise stable. Objective Last 24 Hour Vital Signs Date Time Temp Pulse Resp B/P (MAP) Pulse Ox O2 Delivery O2 Flow Rate FiO2 03/11/19 16:00 T-piece 6.0 03/11/19 16:00 6.0 28 03/11/19 16:00 91 25 158/53 (88) 95 03/11/19 16:00 90 03/11/19 15:00 102 21 169/59 (95) 97 03/11/19 14:57 116 22 100 T-Piece 6.0 28 118 26 95 03/11/19 14:00 104 19 167/70 (102) 99 03/11/19 13:00 90 21 140/65 (90) 98 03/11/19 12:45 99 T-Piece 6.0 28 03/11/19 12:00 98.4 85 17 111/39 (63) 98 03/11/19 12:00 6.0 28 03/11/19 12:00 94 03/11/19 12:00 T-piece 6.0 03/11/19 11:00 94 24 129/100 (110) 100 03/11/19 10:45 90 20 100 T-Piece 6.0 28 93 24 100 03/11/19 10:00 96 21 152/58 (89) 100 03/11/19 09:00 92 22 135/72 (93) 100 03/11/19 08:00 98 03/11/19 08:00 6.0 28 03/11/19 08:00 T-piece 6.0 03/11/19 08:00 98.8 91 23 135/52 (79) 98 03/11/19 07:11 100 T-Piece 6.0 28 03/11/19 07:10 93 22 100 T-Piece 6.0 28 107 20 100 03/11/19 07:00 94 19 145/67 (93) 99 03/11/19 06:00 96 20 161/59 (93) 99 03/11/19 05:00 98 20 137/51 (79) 98 03/11/19 04:00 97.8 105 19 139/48 (78) 99 03/11/19 04:00 6.0 28 03/11/19 04:00 98 03/11/19 04:00 T-piece 6.0 03/11/19 03:05 115 19 100 T-Piece 6.0 28 03/11/19 03:00 97 20 156/95 (115) 99 03/11/19 02:55 112 21 100 T-Piece 6.0 28 03/11/19 02:00 88 20 158/66 (96) 98 03/11/19 01:23 100 T-Piece 6.0 28 03/11/19 01:00 99 20 158/56 (90) 97 03/11/19 00:00 6.0 28 03/11/19 00:00 T-piece 6.0 03/11/19 00:00 78 03/11/19 00:00 98.1 103 20 122/93 (103) 99 03/10/19 23:45 97 18 100 T-Piece 6.0 28 03/10/19 23:30 102 18 100 T-Piece 6.0 28 03/10/19 23:00 77 20 130/43 (72) 99 03/10/19 22:00 84 20 155/61 (92) 98 03/10/19 21:49 95 22 100 T-Piece 6.0 28 03/10/19 21:39 90 21 100 T-Piece 6.0 28 03/10/19 21:00 90 20 154/54 (87) 99 03/10/19 20:00 75 03/10/19 20:00 97.9 86 19 123/57 (79) 99 03/10/19 20:00 6.0 28 03/10/19 20:00 T-piece 6.0 03/10/19 19:17 84 23 100 T-Piece 6.0 28 03/10/19 19:02 100 T-Piece 6.0 28 03/10/19 19:02 74 19 100 T-Piece 6.0 28 03/10/19 19:00 77 19 133/49 (77) 100 03/10/19 18:00 82 22 100/45 (63) 100 I&O Intake and Output 03/10/19 03/11/19 19:00 07:00 Intake Total 1280 ml 1035 ml Output Total 350 ml 500 ml Balance 930 ml 535 ml Free Water 30 ml IV Total 900 ml 825 ml Tube Feeding 350 ml 210 ml Output Urine Total 350 ml 500 ml # Bowel Movements 1 4 Dressing: saturated Wound: other Drains: other Cardiovascular: RSR Respiratory: decreased breath sounds Abdomen: soft, present bowel sounds Extremities: no cyanosis, other Laboratory Tests Test 03/11/19 04:00 White Blood Count 10.9 K/UL (4.8-10.8) H Red Blood Count 3.37 M/UL (4.20-5.40) L Hemoglobin 9.3 G/DL (12.0-16.0) L Hematocrit 27.7 % (37.0-47.0) L Mean Corpuscular Volume 82 FL (80-99) Mean Corpuscular Hemoglobin 27.7 PG (27.0-31.0) Mean Corpuscular Hemoglobin Concent 33.7 G/DL (32.0-36.0) Red Cell Distribution Width 14.5 % (11.6-14.8) Platelet Count 177 K/UL (150-450) Mean Platelet Volume 7.1 FL (6.5-10.1) Neutrophils (%) (Auto) 65.0 % (45.0-75.0) Lymphocytes (%) (Auto) 27.1 % (20.0-45.0) Monocytes (%) (Auto) 4.3 % (1.0-10.0) Eosinophils (%) (Auto) 3.4 % (0.0-3.0) H Basophils (%) (Auto) 0.3 % (0.0-2.0) Sodium Level 143 MMOL/L (136-145) Potassium Level 3.4 MMOL/L (3.5-5.1) L Chloride Level 108 MMOL/L (98-107) H Carbon Dioxide Level 30 MMOL/L (21-32) Anion Gap 5 mmol/L (5-15) Blood Urea Nitrogen 14 mg/dL (7-18) Creatinine 0.9 MG/DL (0.55-1.30) Estimat Glomerular Filtration Rate mL/min (>60) Glucose Level 94 MG/DL (74-106) Calcium Level 9.1 MG/DL (8.5-10.1) Total Bilirubin 0.2 MG/DL (0.2-1.0) Aspartate Amino Transf (AST/SGOT) 38 U/L (15-37) H Alanine Aminotransferase (ALT/SGPT) 50 U/L (12-78) Alkaline Phosphatase 143 U/L (46-116) H Total Protein 8.2 G/DL (6.4-8.2) Albumin 2.9 G/DL (3.4-5.0) L Globulin 5.3 g/dL Albumin/Globulin Ratio 0.5 (1.0-2.7) L Plan Problems: (1) Sacral decubitus ulcer Assessment & Plan: This is a 83-year-old female with multiple medical committees that is currently admitted for medical care and management and identified to have multiple wounds requiring care. On admission patient noted to have a resolved sacral decubitus ulcer. Has had prior care and is well-healed at this time. Will ensure it does not open up again. Patient has a right ischial decubitus ulcer that is resolved. Scar intact and well formed. Will monitor to ensure it does not open up again. Patient has a left ischial decubitus ulcer that can be identified to be stage IV with palpable bone that has been resolving as noted by the periwound tissue and scar but open area approximately 1 cm x 1.5 cm few millimeters deep to bone identified. Unsure if this is been to be completely healed prior and has since opened or if has been healing at this level. No foul odor no drainage was unsure local wound care until healed Bilateral heels soft without signs of injury Resolving pressure injury L ischium(L)1.8cm x (W)1cm.Scattered biofilm at base of wound. Edges flat and adherent with surrounding hyperpigmentation. No odor or exudate noted. Sacrum is pale pink with surrounding hyperpigmentation. Hyperpigmentation R ischium with small sheared area centrally.No areas of erythema or exudate noted. Both heels are soft but blanchable. Skin Assessed under collar of trach and no evidence of skin breakdown noted. All wound Tx. are effective and continued as ordered. Pt ahs an APM/Belén mattress overlay and is being repositioned per protocols and per tolerance.No new skin concerns noted. Full thickness pressure injury L Ischium with small amt biofilm (L)1.8cm x (W) 1cm. Surrounding pink hyperpigmentation. No odor or exudate noted. [place] hyperpigmentation from previous wound noted to sacrum. Pt also noted to have Cat 2 Skin Tear dorsal L hand, L 5th metatarsal extending into palm of hand. 80% skin flap in situ.Both heels are dry firm and blanchable. No other skin concerns noted. Cleanse Blister Dorsal and palm of L hand with saline. Versatel One Silicone Contact Layer(Applied). Apply Silvasorb Gel. Wrap with Kerlix Gauze.Change every 7 days and prn. Apply Moisture Barrier to sacrum. Cover with Optifoam drsg. Change every 3 days and prn. Cleanse L ischial wound with saline. Apply Therahoney. Apply Moisture Barrier Paste periwound. Cover with Optifoam drsg. Change every 3 days and prn. Apply Cavilon Skin Barrier to both heels. Cover each heel with Optifoam drsg. Change every 7 days and prn. APM/BELÉN Mattress overlay. Reposition at least every 2hours or as tolerated. Off-load heels with pillow. Nutritional optimization We will monitor follow with recommendations cont with above upon d/c (2) Sepsis Assessment & Plan: IV abx as per ID trend labs improving wounds unlikely etiology likely respiratory imaging noted and okay abnormal lft's stable PICC on Abx in ICU for desaturation CXR with consolidation Evidence of left lower lobe pneumonia, also previously demonstrated Gastrostomy in good position Mild diastasis of the rectus abdominis musculature again demonstrated Retrosacral decubitus changes, better depicted on prior exam which included the pelvis Small hiatal hernia with evidence of trace gastroesophageal reflux Discussed with GI. Recommend GJ family still pending decision (3) Feeding by G-tube Assessment & Plan: DAILY ESTIMATED NEEDS: Needs based on Pulmonary, wounds, bedbound/ 60kg adj 25-28 kcals/kg 9716-8425 total kcals 1.25-2 g protein/kg 75-120 g total protein 25-30 mL/kg 5801-9253 total fluid mLs NUTRITION DIAGNOSIS: * Swallowing difficulty R/T respiratory status as evidenced by pt on T-collar, now back the vent, PEG dep, TF changed to low rate at this time due to episodes of vomiting + residuals. * Increased kcal/prot needs R/T wound healing as evidenced by BL buttocks and sacral wound photos, refer to NAVIN jacobs. (CURRENT TF:Glucerna 1.5 @35ml) ENTERAL NUTRITION RECOMMENDATIONS: VITAL AF 1.2 @ 55ml/hr x 24 hrs to provide 1320ml, 1584kcal, 99g prot, 1060ml free water - Once medically appropriate to resume TF, rec to initiate elemental and carb control formula of Vital 1.2 for possible improved tolerance - Initiate VITAL 1.2 @ 25ml/hr x 6hrs, advance 10ml q 4-6 hrs as tolerated to goal rate - Flush per MD/ HOB over 30 degrees ADDITIONAL RECOMMENDATIONS: 1) Re-calibrated bedscale wt for accurate CBW 2) Wound healing: Add Cristian 1pkt BID w/ improved Tf tolerace + MVI x1 daily 3) Monitor lytes, replete as needed (low Mg, K) 4) Monitor NPO status, ability to resume TF. -> held on and off due to vomiting since 02/02 5) SSI prn resume tube feeds (4) Chronic vegetative state Assessment & Plan: incontinence of urine and stool. can soil dressings. nurses doing great job with monitoring and changing prn (5) Leukocytosis Walter Madera Mar 11, 2019 17:32
--- NOTE | 2019-03-11 18:17 | Pulmonolgy Critical Care Note ---
Critical Care - Asmt/Plan Assessment/Plan: Pulmonary CCM Progress Note Assessment/Plan Impression: Sepsis syndrome Pneumonia, KPC VDRF, Trach, G tube, Hypertension, Cardiac disease, Dementia, Previous CVA, Seizure disorder, Respiratory failure with hypoxia, on TC Anemia Sacral ulcer renal cyst pulmonary congestion Plan respiratory care to continue as is, TC as tolerated atropine neb therapy SNF meds as is off vent as able and has been off for several day Oxygen as needed Monitor labs daily changes noted and reviewed feeds as tolerated monitor albumin levels and provide protein and nutrition elevate head aspiration precautions Patient is a DNR. No CPR. ICU care reviewed medications/laboratory data/nursing notes/ICU care reviewed in detail note reviewed and edited care discussed with RN and RT ICU time spent 45 minutes Subjective Allergies: Coded Allergies: CODEINE (Verified Allergy, Unknown, HIVES, 09/15/09) Subjective respiratory care noted congestion- improved with atropine ICU care reviewed supportive care noted and reviewed RT care reviewed overnight care noted findings reviewed and discussed in detail with nursing and RT seen earlier this am Objective Vital Signs Noted Objective WDWN NAD contracted off vent reduced breath sounds bilaterally with some rhonchi; no wheeze [id number] without MRG NABS nontender no HSM no CC minimal nonfocal nonverbal trach and gt reviewed and edited Laboratory Tests Noted Critical Care - Objective Last 24 Hour Vital Signs Date Time Temp Pulse Resp B/P (MAP) Pulse Ox O2 Delivery O2 Flow Rate FiO2 03/11/19 16:00 T-piece 6.0 03/11/19 16:00 6.0 28 03/11/19 16:00 91 25 158/53 (88) 95 03/11/19 16:00 90 03/11/19 15:00 102 21 169/59 (95) 97 03/11/19 14:57 116 22 100 T-Piece 6.0 28 118 26 95 03/11/19 14:00 104 19 167/70 (102) 99 03/11/19 13:00 90 21 140/65 (90) 98 03/11/19 12:45 99 T-Piece 6.0 28 03/11/19 12:00 98.4 85 17 111/39 (63) 98 03/11/19 12:00 6.0 28 03/11/19 12:00 94 03/11/19 12:00 T-piece 6.0 03/11/19 11:00 94 24 129/100 (110) 100 03/11/19 10:45 90 20 100 T-Piece 6.0 28 93 24 100 03/11/19 10:00 96 21 152/58 (89) 100 03/11/19 09:00 92 22 135/72 (93) 100 03/11/19 08:00 98 03/11/19 08:00 6.0 28 03/11/19 08:00 T-piece 6.0 03/11/19 08:00 98.8 91 23 135/52 (79) 98 03/11/19 07:11 100 T-Piece 6.0 28 03/11/19 07:10 93 22 100 T-Piece 6.0 28 107 20 100 03/11/19 07:00 94 19 145/67 (93) 99 03/11/19 06:00 96 20 161/59 (93) 99 03/11/19 05:00 98 20 137/51 (79) 98 03/11/19 04:00 97.8 105 19 139/48 (78) 99 03/11/19 04:00 6.0 28 03/11/19 04:00 98 03/11/19 04:00 T-piece 6.0 03/11/19 03:05 115 19 100 T-Piece 6.0 28 03/11/19 03:00 97 20 156/95 (115) 99 03/11/19 02:55 112 21 100 T-Piece 6.0 28 03/11/19 02:00 88 20 158/66 (96) 98 03/11/19 01:23 100 T-Piece 6.0 28 03/11/19 01:00 99 20 158/56 (90) 97 03/11/19 00:00 6.0 28 03/11/19 00:00 T-piece 6.0 03/11/19 00:00 78 03/11/19 00:00 98.1 103 20 122/93 (103) 99 03/10/19 23:45 97 18 100 T-Piece 6.0 28 03/10/19 23:30 102 18 100 T-Piece 6.0 28 03/10/19 23:00 77 20 130/43 (72) 99 03/10/19 22:00 84 20 155/61 (92) 98 03/10/19 21:49 95 22 100 T-Piece 6.0 28 03/10/19 21:39 90 21 100 T-Piece 6.0 28 03/10/19 21:00 90 20 154/54 (87) 99 03/10/19 20:00 75 03/10/19 20:00 97.9 86 19 123/57 (79) 99 03/10/19 20:00 6.0 28 03/10/19 20:00 T-piece 6.0 03/10/19 19:17 84 23 100 T-Piece 6.0 28 03/10/19 19:02 100 T-Piece 6.0 28 03/10/19 19:02 74 19 100 T-Piece 6.0 28 03/10/19 19:00 77 19 133/49 (77) 100 Micro: Microbiology Date/Time Source Procedure Growth Status 03/08/19 20:00 Stool Clostridium difficile Toxin Assay - Final Complete 03/08/19 20:00 Rectum Stool Culture - Preliminary NO SALMONELLA,SHIGELLA,OR CAMPYLOBACT... Resulted Critical Care - Subjective ROS Limited/Unobtainable: No FI02: 28 Vent Support Mode: CPAP Vent Tidal Volume: 450 Sputum Amount: Moderate PEEP: 5.0 PIP: 19 I&O: Intake and Output 03/10/19 03/11/19 19:00 07:00 Intake Total 1280 ml 1035 ml Output Total 350 ml 500 ml Balance 930 ml 535 ml Free Water 30 ml IV Total 900 ml 825 ml Tube Feeding 350 ml 210 ml Output Urine Total 350 ml 500 ml # Bowel Movements 1 4 ET-Tube: 6.0 Bg Moffett MD Mar 11, 2019 18:17
--- NOTE | 2019-03-11 19:21 | NUR ---
HAND-OFF: Report given to JEANNINE Anglin.
--- NOTE | 2019-03-11 19:25 | NUR ---
NURSE NOTES: received from katy rn pt awake does not follows command upper extremities contracted trach shilly 6 on t-piece 28 0/o o2 sat 100 0/o no acute distress noted gt-tube clamp pt npo abdomen soft iv infusing d5/45nsat 75cc/hr site good dressing dry intact reposition and suction
[2019-03-11] MEDS: Dyna-Hex 2% Top Sol 2oz TOPIC SCH (20:15)
--- NOTE | 2019-03-11 22:00 | NUR ---
NURSE NOTES: pt reposition and suction on external cath with good urinary output
[2019-03-12] VITALS (26 sets, daily range): BP systolic 61–178; BP diastolic 11–157
--- NOTE | 2019-03-12 | NUR ---
NURSE NOTES: reposition and suction oral care and back no back care done
--- NOTE | 2019-03-12 00:30 | Progress Note ---
DATE: 03/11/2019 CARDIOLOGY PROGRESS NOTE SUBJECTIVE: The patient remains in the intensive care unit on trach collar for support. Continues to have residuals with episodes of regurgitation and intolerance of food. Feedings are on hold again, IV fluids have been initiated. OBJECTIVE: VITAL SIGNS: Blood pressure 135/52, pulse 91, respirations 23. Monitored rhythm sinus with episodes of sinus tachycardia. LUNGS: Coarse breath sounds. Rhonchi. CARDIAC: Regular rhythm. Rapid rate. Normal S1, S2. ABDOMEN: Soft. G-tube intact. EXTREMITIES: Trace edema. IMPRESSION: 1. G-tube intolerance. 2. Gastroparesis. 3. Aspiration. 4. Anemia multifactorial. 5. Hypokalemia with potassium 3.4 today. 6. Increased heart rate due to respiratory status as well as discontinued beta-martha therapy requested by daughter. PLAN: 1. IV fluids. 2. Promotility agents. 3. Feedings on hold. 4. Respiratory hygiene. 5. Cardiac monitoring. 6. DVT prophylaxis. 7. Replace potassium. 8. Recheck magnesium. Bg Hagen M.D. DR: SHIRA JOB#: [id number] CC:
--- NOTE | 2019-03-12 02:00 | NUR ---
NURSE NOTES: pt has lots oral secretion and trach secretion
[2019-03-12] MEDS: Metoclopramide 10mg/2ml Inj IVP SCH ×4 (02:23→20:03)
[2019-03-12] MEDS: Albuterol/Ipratropium 3ml neb HHN SCH ×6 (03:06→23:41)
--- NOTE | 2019-03-12 04:00 | NUR ---
NURSE NOTES: bed bath oral done fatou-care done reposition and suction done
[2019-03-12 05:15] LABS: BASOPHILS % (AUTO) 0.6 % (0.0-2.0); EOSINOPHILS % (AUTO) 4.4 % (0.0-3.0); HEMATOCRIT 27.8 % (37.0-47.0); HEMOGLOBIN 8.9 G/DL (12.0-16.0); LYMPHOCYTES % (AUTO) 31.9 % (20.0-45.0); MEAN CORPUSCULAR VOLUME 85 FL (80-99); MONOCYTES % (AUTO) 5.3 % (1.0-10.0); NEUTROPHILS % (AUTO) 57.9 % (45.0-75.0); PLATELET COUNT 164 K/UL (150-450); RED BLOOD COUNT 3.27 M/UL (4.20-5.40); RED CELL DISTRIBUTION WIDTH 16.1 % (11.6-14.8); WHITE BLOOD COUNT 9.5 K/UL (4.8-10.8)
[2019-03-12 05:58] LABS: ANION GAP 6 mmol/L (5-15); BLOOD UREA NITROGEN 9 mg/dL (7-18); CALCIUM 9.2 MG/DL (8.5-10.1); CARBON DIOXIDE 30 MMOL/L (21-32); CHLORIDE 110 MMOL/L (98-107); CREATININE 0.9 MG/DL (0.55-1.30); POTASSIUM 3.4 MMOL/L (3.5-5.1); SODIUM 145 MMOL/L (136-145)
--- NOTE | 2019-03-12 06:48 | NUR ---
NURSE NOTES: asleep reposition and suction done wound care done
--- NOTE | 2019-03-12 07:30 | NUR ---
NURSE NOTES: PT and report received from JEANNINE Ford; PT has eyes open, no tracking of eyes, responsive to pain, non verbal, received on shiley 6 XLT on t-piece @ 28%; VS on staking engineer shows SR with BP 165/64; HR 71; o2 saturation at 100%; no S/S of respiratory distress; provided PT with oral care and suctioning during morning rounds; JOSY-PICC double lumens infusing infusing D5 1/2 NS @ 75cc, both lumens flushes, patent, intact; PT remains NPO feeding held cause of reported regurgitation / not tolerating; PT has purewick attached to wall suction intact patent; BUE contracted, BLE heels elevated floating, HOB raised; MD Jerel made rounds during and reported PT morning labs low K 3.[address] MD [address] place orders; n
--- NOTE | 2019-03-12 07:57 | NUR ---
HAND-OFF: Report given to matti mann using sbar.
[2019-03-12] MEDS: Heparin 5000 units/ml inj SUBQ SCH ×2 (08:48→20:44)
--- NOTE | 2019-03-12 08:48 | General Progress Note ---
Assessment/Plan Problem List: (1) Seizure ICD Codes: R56.9 - Unspecified convulsions SNOMED: 72490065 (2) Anemia ICD Codes: D64.9 - Anemia, unspecified SNOMED: 990278623 Qualifiers: Qualified Codes: D64.9 - Anemia, unspecified (3) Sepsis ICD Codes: A41.9 - Sepsis, unspecified organism SNOMED: 40745402, 074197153 Qualifiers: Qualified Codes: A41.9 - Sepsis, unspecified organism (4) Respiratory failure with hypoxia ICD Codes: J96.91 - Respiratory failure, unspecified with hypoxia SNOMED: 98157609612770615 Qualifiers: Qualified Codes: J96.21 - Acute and chronic respiratory failure with hypoxia (5) HCAP (healthcare-associated pneumonia) ICD Codes: J18.9 - Pneumonia, unspecified organism SNOMED: 729342142, 469082067 (6) Sacral decubitus ulcer ICD Codes: L89.159 - Pressure ulcer of sacral region, unspecified stage SNOMED: 394290404 (7) HTN (hypertension) ICD Codes: I10 - Essential (primary) hypertension SNOMED: 39263754 (8) Chronic vegetative state ICD Codes: R40.3 - Persistent vegetative state SNOMED: 41017190 (9) Chronic respiratory failure ICD Codes: J96.10 - Chronic respiratory failure, unspecified whether with hypoxia or hypercapnia SNOMED: 01315505 (10) Limited mobility ICD Codes: Z74.09 - Other reduced mobility SNOMED: 7856906 Status: stable, progressing Assessment/Plan: vent prn as needed resp rx suctioning as needed gt feeds with caution/as tolerated bowel regime monitor residuals sx rx monitor bp monitor cbc monitor for bleeding ?j tube replace lytes Subjective ROS Limited/Unobtainable: No Constitutional: Reports: malaise, weakness HEENT: Reports: no symptoms Cardiovascular: Reports: no symptoms Respiratory: Reports: cough, shortness of breath, sputum Gastrointestinal/Abdominal: Reports: difficulty swallowing, vomiting Genitourinary: Reports: no symptoms Neurologic/Psychiatric: Reports: pre-existing deficit, seizure Endocrine: Reports: no symptoms Hematologic/Lymphatic: Reports: anemia Allergies: Coded Allergies: CODEINE (Verified Allergy, Unknown, HIVES, 09/15/09) All Systems: reviewed and negative except above Subjective still not tolerating feeds. increased congestion. feeds on hold. pt getting ivf. Dtr declined J tube conversion in the past. labs reviewed Objective Last 24 Hour Vital Signs Date Time Temp Pulse Resp B/P (MAP) Pulse Ox O2 Delivery O2 Flow Rate FiO2 03/12/19 08:00 T-piece 6.0 03/12/19 08:00 98.5 73 21 121/43 (69) 98 03/12/19 08:00 6.0 28 03/12/19 08:00 78 03/12/19 07:08 100 T-Piece 6.0 28 03/12/19 07:07 72 20 100 T-Piece 6.0 28 76 25 100 03/12/19 07:00 80 25 165/64 (97) 100 03/12/19 06:00 86 30 158/67 (97) 100 03/12/19 05:00 94 21 160/69 (99) 97 03/12/19 04:00 97.4 101 16 163/87 (112) 98 03/12/19 04:00 T-piece 6.0 03/12/19 04:00 78 03/12/19 04:00 6.0 28 03/12/19 03:06 79 26 100 T-Piece 6.0 28 78 20 100 03/12/19 03:00 78 24 160/59 (92) 100 03/12/19 02:00 85 23 164/65 (98) 99 03/12/19 01:10 100 T-Piece 6.0 28 03/12/19 01:00 82 25 163/67 (99) 99 03/12/19 00:00 T-piece 6.0 03/12/19 00:00 6.0 28 03/12/19 00:00 76 03/12/19 00:00 98.0 71 24 161/68 (99) 100 03/11/19 23:07 69 20 100 T-Piece 6.0 28 70 23 100 03/11/19 23:00 72 19 146/61 (89) 98 03/11/19 22:00 70 21 137/98 (111) 100 03/11/19 21:00 77 23 145/54 (84) 100 03/11/19 20:00 80 24 146/58 (87) 100 03/11/19 20:00 6.0 28 03/11/19 20:00 T-piece 6.0 03/11/19 20:00 76 03/11/19 19:17 96 22 100 T-Piece 6.0 28 100 17 100 03/11/19 19:17 100 T-Piece 6.0 28 03/11/19 19:00 80 23 112/44 (66) 96 03/11/19 18:00 97 21 162/62 (95) 97 03/11/19 17:00 82 27 150/60 (90) 97 03/11/19 16:00 T-piece 6.0 03/11/19 16:00 6.0 28 03/11/19 16:00 97.6 91 25 158/53 (88) 95 03/11/19 16:00 90 03/11/19 15:00 102 21 169/59 (95) 97 03/11/19 14:57 116 22 100 T-Piece 6.0 28 118 26 95 03/11/19 14:00 104 19 167/70 (102) 99 03/11/19 13:00 90 21 140/65 (90) 98 03/11/19 12:45 99 T-Piece 6.0 28 03/11/19 12:00 98.4 85 17 111/39 (63) 98 03/11/19 12:00 6.0 28 03/11/19 12:00 94 03/11/19 12:00 T-piece 6.0 03/11/19 11:00 94 24 129/100 (110) 100 03/11/19 10:45 90 20 100 T-Piece 6.0 28 93 24 100 03/11/19 10:00 96 21 152/58 (89) 100 03/11/19 09:00 92 22 135/72 (93) 100 Intake and Output 03/11/19 03/12/19 19:00 07:00 Intake Total 1035 ml 825 ml Output Total 950 ml 820 ml Balance 85 ml 5 ml Free Water 60 ml IV Total 975 ml 825 ml Output Urine Total 950 ml 820 ml # Voids 1 # Bowel Movements 2 3 Laboratory Tests 03/12/19 04:05: White Blood Count 9.5, Red Blood Count 3.27L, Hemoglobin 8.9L, Hematocrit 27.8L , Mean Corpuscular Volume 85, Mean Corpuscular Hemoglobin 27.2, Mean Corpuscular Hemoglobin Concent 32.0, Red Cell Distribution Width 16.1H, Platelet Count 164, Mean Platelet Volume 6.5, Neutrophils (%) (Auto) 57.9, Lymphocytes (%) (Auto) 31.9, Monocytes (%) (Auto) 5.3, Eosinophils (%) (Auto) 4.4H, Basophils (%) (Auto) 0.6, Sodium Level 145, Potassium Level 3.4L, Chloride Level 110H, Carbon Dioxide Level 30, Anion Gap 6, Blood Urea Nitrogen 9 , Creatinine 0.9, Estimat Glomerular Filtration Rate , Glucose Level 98, Calcium Level 9.2, Magnesium Level 1.5L, Pro-B-Type Natriuretic Peptide 348H Height (Feet): 5 Height (Inches): 5.00 Weight (Pounds): 134 Objective General Appearance: WD/WN, confused. on trach collar Neck: supple Cardiovascular: normal rate, regular rhythm Respiratory/Chest: chest wall non-tender, rhonchi - bilaterally(minimal) Abdomen: normal bowel sounds, non tender, soft, no organomegaly Edema: no edema noted Arm (L), no edema noted Arm (R), no edema noted Leg (L), no edema noted Leg (R), no edema noted Pedal (L), no edema noted Pedal (R), no edema noted Generalized Neurologic: disoriented, unresponsive, aphasia Irvin Beltrán MD Mar 12, 2019 08:48
[2019-03-12] MEDS: levETIRAcetam 500mg/5ml Liquid GT SCH ×2 (08:50→20:44)
[2019-03-12] MEDS: Bacitracin Oint 15gm Tube TOPIC SCH ×3 (08:50→18:23)
--- NOTE | 2019-03-12 08:53 | Pulmonology Progress Note ---
Assessment/Plan Assessment/Plan Impression: Sepsis syndrome Pneumonia VDRF, Trach, G tube, Hypertension, Cardiac disease, Dementia, Previous CVA, Seizure disorder, Respiratory failure with hypoxia Anemia, worsened ? gib Sacral ulcer renal cyst pulmonary congestion Plan respiratory care as is atropine as needed neb therapy as is inhaled amikacin bid off vent and monitor Oxygen low flow Monitor labs and protein levels aspiration precautions polymicrobial infection noted presently without fevers Patient is a DNR. No CPR. ICU care reviewed family refusing dc medications/laboratory data/nursing notes/ICU care reviewed in detail note reviewed and edited care discussed with RN and RT ICU time spent 38 minutes Subjective ROS Limited/Unobtainable: Yes Allergies: Coded Allergies: CODEINE (Verified Allergy, Unknown, HIVES, 09/15/09) Subjective respiratory care reviewed on atropine and nebs ICU care reviewed inhaled amikacin RT care reviewed findings reviewed and discussed Objective Last 24 Hour Vital Signs Date Time Temp Pulse Resp B/P (MAP) Pulse Ox O2 Delivery O2 Flow Rate FiO2 03/12/19 08:00 T-piece 6.0 03/12/19 08:00 98.5 73 21 121/43 (69) 98 03/12/19 08:00 6.0 28 03/12/19 08:00 78 03/12/19 07:08 100 T-Piece 6.0 28 03/12/19 07:07 72 20 100 T-Piece 6.0 28 76 25 100 03/12/19 07:00 80 25 165/64 (97) 100 03/12/19 06:00 86 30 158/67 (97) 100 03/12/19 05:00 94 21 160/69 (99) 97 03/12/19 04:00 97.4 101 16 163/87 (112) 98 03/12/19 04:00 T-piece 6.0 03/12/19 04:00 78 03/12/19 04:00 6.0 28 03/12/19 03:06 79 26 100 T-Piece 6.0 28 78 20 100 03/12/19 03:00 78 24 160/59 (92) 100 03/12/19 02:00 85 23 164/65 (98) 99 03/12/19 01:10 100 T-Piece 6.0 28 03/12/19 01:00 82 25 163/67 (99) 99 03/12/19 00:00 T-piece 6.0 03/12/19 00:00 6.0 28 03/12/19 00:00 76 03/12/19 00:00 98.0 71 24 161/68 (99) 100 03/11/19 23:07 69 20 100 T-Piece 6.0 28 70 23 100 03/11/19 23:00 72 19 146/61 (89) 98 03/11/19 22:00 70 21 137/98 (111) 100 03/11/19 21:00 77 23 145/54 (84) 100 03/11/19 20:00 80 24 146/58 (87) 100 03/11/19 20:00 6.0 28 03/11/19 20:00 T-piece 6.0 03/11/19 20:00 76 03/11/19 19:17 96 22 100 T-Piece 6.0 28 100 17 100 03/11/19 19:17 100 T-Piece 6.0 28 03/11/19 19:00 80 23 112/44 (66) 96 03/11/19 18:00 97 21 162/62 (95) 97 03/11/19 17:00 82 27 150/60 (90) 97 03/11/19 16:00 T-piece 6.0 03/11/19 16:00 6.0 28 03/11/19 16:00 97.6 91 25 158/53 (88) 95 03/11/19 16:00 90 03/11/19 15:00 102 21 169/59 (95) 97 03/11/19 14:57 116 22 100 T-Piece 6.0 28 118 26 95 03/11/19 14:00 104 19 167/70 (102) 99 03/11/19 13:00 90 21 140/65 (90) 98 03/11/19 12:45 99 T-Piece 6.0 28 03/11/19 12:00 98.4 85 17 111/39 (63) 98 03/11/19 12:00 6.0 28 03/11/19 12:00 94 03/11/19 12:00 T-piece 6.0 03/11/19 11:00 94 24 129/100 (110) 100 03/11/19 10:45 90 20 100 T-Piece 6.0 28 93 24 100 03/11/19 10:00 96 21 152/58 (89) 100 03/11/19 09:00 92 22 135/72 (93) 100 Intake and Output 03/11/19 03/12/19 19:00 07:00 Intake Total 1035 ml 825 ml Output Total 950 ml 820 ml Balance 85 ml 5 ml Free Water 60 ml IV Total 975 ml 825 ml Output Urine Total 950 ml 820 ml # Voids 1 # Bowel Movements 2 3 Objective WDWN NAD contracted off vent reduced breath sounds bilaterally with occ rhonchi [id number] without MRG NABS nontender no HSM no CC minimal edema nonfocal nonverbal trach and gt reviewed and edited Laboratory Tests 03/12/19 04:05: White Blood Count 9.5, Red Blood Count 3.27L, Hemoglobin 8.9L, Hematocrit 27.8L , Mean Corpuscular Volume 85, Mean Corpuscular Hemoglobin 27.2, Mean Corpuscular Hemoglobin Concent 32.0, Red Cell Distribution Width 16.1H, Platelet Count 164, Mean Platelet Volume 6.5, Neutrophils (%) (Auto) 57.9, Lymphocytes (%) (Auto) 31.9, Monocytes (%) (Auto) 5.3, Eosinophils (%) (Auto) 4.4H, Basophils (%) (Auto) 0.6, Sodium Level 145, Potassium Level 3.4L, Chloride Level 110H, Carbon Dioxide Level 30, Anion Gap 6, Blood Urea Nitrogen 9 , Creatinine 0.9, Estimat Glomerular Filtration Rate , Glucose Level 98, Calcium Level 9.2, Magnesium Level 1.5L, Pro-B-Type Natriuretic Peptide 348H Current Medications Medications (Trade) Dose Ordered Sig/Maicol Route PRN Reason Start Time Stop Time Status Last Admin Dose Admin Albuterol/ Ipratropium (Albuterol/ Ipratropium) 3 ml Q4HRT HHN 03/10/19 03:00 03/15/19 02:59 03/12/19 07:07 Amikacin Sulfate (Amikin) 500 mg Q12HR@10,22 INH 03/07/19 11:00 03/14/19 10:59 03/10/19 21:39 Atropine Sulfate (Atropine Opth Adriana) 2 drop TID SL 03/07/19 09:00 04/06/19 08:59 03/12/19 08:50 Bacitracin (Bacitracin 15gm tube) 1 applic THREE TIMES A DAY TOPIC 02/28/19 18:30 03/30/19 18:29 03/12/19 08:50 Chlorhexidine Gluconate (Cesilia-Hex 2%) 1 applic DAILY@1999 TOPIC 02/18/19 20:00 03/12/19 19:59 03/11/19 20:15 Dextrose/Sodium Chloride 1,000 ml @ 75 mls/hr [id number] IV 03/07/19 11:15 04/06/19 11:14 03/11/19 21:55 Famotidine (Pepcid) 20 mg BID GT 03/02/19 18:00 04/01/19 17:59 03/12/19 08:50 Heparin Sodium (Porcine) (Heparin 5000 units/ml) 5,000 units EVERY 12 HOURS SUBQ 02/18/19 09:00 03/16/19 23:14 03/12/19 08:48 Hydralazine HCl (Apresoline) 10 mg Q4H PRN IV For High Blood Pressure 03/12/19 09:00 04/11/19 08:59 UNV Levetiracetam (Keppra) 750 mg Q12HR GT 02/18/19 09:00 03/16/19 23:29 03/12/19 08:50 Magnesium Sulfate 100 ml @ 100 mls/hr Q1H IVPB 03/12/19 08:30 03/12/19 12:29 03/12/19 08:49 Magnesium Sulfate 100 ml @ 100 mls/hr Q1H IVPB 03/12/19 09:00 03/12/19 10:59 UNV Metoclopramide HCl (Reglan) 5 mg Q6H IVP 03/10/19 02:00 03/24/19 01:59 03/12/19 08:49 Potassium Chloride 100 ml @ 100 mls/hr Q1HR IVPB 03/12/19 09:00 03/12/19 11:59 UNV Potassium Chloride (K-Dur) 20 meq TWICE A DAY GT 03/12/19 09:00 04/11/19 08:59 03/12/19 08:49 Scopolamine (TransDerm Scop 1.5mg/72HR Patch) 1.5 mg Q72H TDERMAL 03/11/19 13:00 04/10/19 12:59 03/11/19 13:52 Amaury Chan MD Mar 12, 2019 08:53
[2019-03-12] MEDS: Amikacin for Inhalation 2ML INH SCH ×2 (09:10→23:41)
--- NOTE | 2019-03-12 10:03 | Infectious Diseases Prog Note ---
Assessment/Plan Assessment/Plan A 1. Providencia & Klebsiella pneumonia 2. respiratory failure 3. hypertension 4. CVA 5. dementia 6. sacral decubitus ulcer 7. rectal VRE colonization 8. Anemia 9. Proteus UTI 10. Acute renal failure 11. Leukocytosis P 1.Continue Amikacin inhaler X 4 days 2. Frequent suctioning 3. Remove PICC line before discharge Subjective ROS Limited/Unobtainable: Yes Constitutional: Denies: fever Respiratory: Reports: productive cough, other - respiratory secretions Allergies: Coded Allergies: CODEINE (Verified Allergy, Unknown, HIVES, 09/15/09) Objective Vital Signs Last 24 Hour Vital Signs Date Time Temp Pulse Resp B/P (MAP) Pulse Ox O2 Delivery O2 Flow Rate FiO2 03/12/19 08:00 T-piece 6.0 03/12/19 08:00 98.5 73 21 121/43 (69) 98 03/12/19 08:00 6.0 28 03/12/19 08:00 78 03/12/19 07:08 100 T-Piece 6.0 28 03/12/19 07:07 72 20 100 T-Piece 6.0 28 76 25 100 03/12/19 07:00 80 25 165/64 (97) 100 03/12/19 06:00 86 30 158/67 (97) 100 03/12/19 05:00 94 21 160/69 (99) 97 03/12/19 04:00 97.4 101 16 163/87 (112) 98 03/12/19 04:00 T-piece 6.0 03/12/19 04:00 78 03/12/19 04:00 6.0 28 03/12/19 03:06 79 26 100 T-Piece 6.0 28 78 20 100 03/12/19 03:00 78 24 160/59 (92) 100 03/12/19 02:00 85 23 164/65 (98) 99 03/12/19 01:10 100 T-Piece 6.0 28 03/12/19 01:00 82 25 163/67 (99) 99 03/12/19 00:00 T-piece 6.0 03/12/19 00:00 6.0 28 03/12/19 00:00 76 03/12/19 00:00 98.0 71 24 161/68 (99) 100 03/11/19 23:07 69 20 100 T-Piece 6.0 28 70 23 100 03/11/19 23:00 72 19 146/61 (89) 98 03/11/19 22:00 70 21 137/98 (111) 100 03/11/19 21:00 77 23 145/54 (84) 100 03/11/19 20:00 80 24 146/58 (87) 100 03/11/19 20:00 6.0 28 03/11/19 20:00 T-piece 6.0 03/11/19 20:00 76 03/11/19 19:17 96 22 100 T-Piece 6.0 28 100 17 100 03/11/19 19:17 100 T-Piece 6.0 28 03/11/19 19:00 80 23 112/44 (66) 96 03/11/19 18:00 97 21 162/62 (95) 97 03/11/19 17:00 82 27 150/60 (90) 97 03/11/19 16:00 T-piece 6.0 03/11/19 16:00 6.0 28 03/11/19 16:00 97.6 91 25 158/53 (88) 95 03/11/19 16:00 90 03/11/19 15:00 102 21 169/59 (95) 97 03/11/19 14:57 116 22 100 T-Piece 6.0 28 118 26 95 03/11/19 14:00 104 19 167/70 (102) 99 03/11/19 13:00 90 21 140/65 (90) 98 03/11/19 12:45 99 T-Piece 6.0 28 03/11/19 12:00 98.4 85 17 111/39 (63) 98 03/11/19 12:00 6.0 28 03/11/19 12:00 94 03/11/19 12:00 T-piece 6.0 03/11/19 11:00 94 24 129/100 (110) 100 03/11/19 10:45 90 20 100 T-Piece 6.0 28 93 24 100 Height (Feet): 5 Height (Inches): 5.00 Weight (Pounds): 134 HEENT: status post trach Respiratory/Chest: other - on T bar, few rhonchi Cardiovascular: normal rate, other - R arm PICC line Abdomen: soft, non tender, other - GT feeding Extremities: no edema Neurologic/Psychiatric: aphasia, other - opens eyes Laboratory Tests Test 03/12/19 04:05 White Blood Count 9.5 K/UL (4.8-10.8) Red Blood Count 3.27 M/UL (4.20-5.40) L Hemoglobin 8.9 G/DL (12.0-16.0) L Hematocrit 27.8 % (37.0-47.0) L Mean Corpuscular Volume 85 FL (80-99) Mean Corpuscular Hemoglobin 27.2 PG (27.0-31.0) Mean Corpuscular Hemoglobin Concent 32.0 G/DL (32.0-36.0) Red Cell Distribution Width 16.1 % (11.6-14.8) H Platelet Count 164 K/UL (150-450) Mean Platelet Volume 6.5 FL (6.5-10.1) Neutrophils (%) (Auto) 57.9 % (45.0-75.0) Lymphocytes (%) (Auto) 31.9 % (20.0-45.0) Monocytes (%) (Auto) 5.3 % (1.0-10.0) Eosinophils (%) (Auto) 4.4 % (0.0-3.0) H Basophils (%) (Auto) 0.6 % (0.0-2.0) Sodium Level 145 MMOL/L (136-145) Potassium Level 3.4 MMOL/L (3.5-5.1) L Chloride Level 110 MMOL/L (98-107) H Carbon Dioxide Level 30 MMOL/L (21-32) Anion Gap 6 mmol/L (5-15) Blood Urea Nitrogen 9 mg/dL (7-18) Creatinine 0.9 MG/DL (0.55-1.30) Estimat Glomerular Filtration Rate mL/min (>60) Glucose Level 98 MG/DL (74-106) Calcium Level 9.2 MG/DL (8.5-10.1) Magnesium Level 1.5 MG/DL (1.8-2.4) L Pro-B-Type Natriuretic Peptide 348 pg/mL (0-125) H Current Medications Medications (Trade) Dose Ordered Sig/Maicol Route PRN Reason Start Time Stop Time Status Last Admin Dose Admin Albuterol/ Ipratropium (Albuterol/ Ipratropium) 3 ml Q4HRT HHN 03/10/19 03:00 03/15/19 02:59 03/12/19 07:07 Amikacin Sulfate (Amikin) 500 mg Q12HR@10,22 INH 03/07/19 11:00 03/14/19 10:59 03/10/19 21:39 Atropine Sulfate (Atropine Opth Adriana) 2 drop TID SL 03/07/19 09:00 04/06/19 08:59 03/12/19 08:50 Bacitracin (Bacitracin 15gm tube) 1 applic THREE TIMES A DAY TOPIC 02/28/19 18:30 03/30/19 18:29 03/12/19 08:50 Chlorhexidine Gluconate (Cesilia-Hex 2%) 1 applic DAILY@1999 TOPIC 02/18/19 20:00 03/12/19 19:59 03/11/19 20:15 Dextrose/Sodium Chloride 1,000 ml @ 75 mls/hr [id number] IV 03/07/19 11:15 04/06/19 11:14 03/11/19 21:55 Famotidine (Pepcid) 20 mg BID GT 03/02/19 18:00 04/01/19 17:59 03/12/19 08:50 Heparin Sodium (Porcine) (Heparin 5000 units/ml) 5,000 units EVERY 12 HOURS SUBQ 02/18/19 09:00 03/16/19 23:14 03/12/19 08:48 Hydralazine HCl (Apresoline) 10 mg Q4H PRN IV For High Blood Pressure 03/12/19 09:00 04/11/19 08:59 Levetiracetam (Keppra) 750 mg Q12HR GT 02/18/19 09:00 03/16/19 23:29 03/12/19 08:50 Magnesium Sulfate 100 ml @ 100 mls/hr Q1H IVPB 03/12/19 08:30 03/12/19 12:29 03/12/19 08:49 Metoclopramide HCl (Reglan) 5 mg Q6H IVP 03/10/19 02:00 03/24/19 01:59 03/12/19 08:49 Potassium Chloride 100 ml @ 100 mls/hr Q1HR IVPB 03/12/19 09:00 03/12/19 11:59 Potassium Chloride (K-Dur) 20 meq TWICE A DAY GT 03/12/19 09:00 04/11/19 08:59 03/12/19 08:49 Scopolamine (TransDerm Scop 1.5mg/72HR Patch) 1.5 mg Q72H TDERMAL 03/11/19 13:00 04/10/19 12:59 03/11/19 13:52 Chauncey Liriano MD Mar 12, 2019 10:03
--- NOTE | 2019-03-12 10:30 | NUR ---
NURSE NOTES: PT BP progressively going higher, PT is under no respiratory distress, saturating 100% on T-piece; will administer PRN Hydralazine as ordered by .
--- NOTE | 2019-03-12 10:43 | General Progress Note ---
Assessment/Plan Status: stable, progressing Assessment/Plan: Assessment - N/V, periodic, including suctioning of feeds from mouth - suspect due to gastroparesis, possibly also from suctioning reflex - DTR declines GJ conversion. - another message left on her VM - will Rx with reglan, short term - suction gently - Elevated Alk phos / LFT - CT negative - abd U/S negative - check hepatitis serologies - negative - Anemia with OB (-) stools - Resp failure, s/p Trach - dysphagia, s/p PEG --> s/p GT change - OBS - minor GT tract inflammation / infection - poor Px Recommendations - laxative PRN - antibiotic ointment to GT site PRN - aspiration precautions - elevate HOB - PPI -GTF on hold given vomiting last night Subjective ROS Limited/Unobtainable: No Allergies: Coded Allergies: CODEINE (Verified Allergy, Unknown, HIVES, 09/15/09) Objective Last 24 Hour Vital Signs Date Time Temp Pulse Resp B/P (MAP) Pulse Ox O2 Delivery O2 Flow Rate FiO2 03/12/19 08:00 T-piece 6.0 03/12/19 08:00 98.5 73 21 121/43 (69) 98 03/12/19 08:00 6.0 28 03/12/19 08:00 78 03/12/19 07:08 100 T-Piece 6.0 28 03/12/19 07:07 72 20 100 T-Piece 6.0 28 76 25 100 03/12/19 07:00 80 25 165/64 (97) 100 03/12/19 06:00 86 30 158/67 (97) 100 03/12/19 05:00 94 21 160/69 (99) 97 03/12/19 04:00 97.4 101 16 163/87 (112) 98 03/12/19 04:00 T-piece 6.0 03/12/19 04:00 78 03/12/19 04:00 6.0 28 03/12/19 03:06 79 26 100 T-Piece 6.0 28 78 20 100 03/12/19 03:00 78 24 160/59 (92) 100 03/12/19 02:00 85 23 164/65 (98) 99 03/12/19 01:10 100 T-Piece 6.0 28 03/12/19 01:00 82 25 163/67 (99) 99 03/12/19 00:00 T-piece 6.0 03/12/19 00:00 6.0 28 03/12/19 00:00 76 03/12/19 00:00 98.0 71 24 161/68 (99) 100 03/11/19 23:07 69 20 100 T-Piece 6.0 28 70 23 100 03/11/19 23:00 72 19 146/61 (89) 98 03/11/19 22:00 70 21 137/98 (111) 100 03/11/19 21:00 77 23 145/54 (84) 100 03/11/19 20:00 80 24 146/58 (87) 100 03/11/19 20:00 6.0 28 03/11/19 20:00 T-piece 6.0 03/11/19 20:00 76 03/11/19 19:17 96 22 100 T-Piece 6.0 28 100 17 100 03/11/19 19:17 100 T-Piece 6.0 28 03/11/19 19:00 80 23 112/44 (66) 96 03/11/19 18:00 97 21 162/62 (95) 97 03/11/19 17:00 82 27 150/60 (90) 97 03/11/19 16:00 T-piece 6.0 03/11/19 16:00 6.0 28 03/11/19 16:00 97.6 91 25 158/53 (88) 95 03/11/19 16:00 90 03/11/19 15:00 102 21 169/59 (95) 97 03/11/19 14:57 116 22 100 T-Piece 6.0 28 118 26 95 03/11/19 14:00 104 19 167/70 (102) 99 03/11/19 13:00 90 21 140/65 (90) 98 03/11/19 12:45 99 T-Piece 6.0 28 03/11/19 12:00 98.4 85 17 111/39 (63) 98 03/11/19 12:00 6.0 28 03/11/19 12:00 94 03/11/19 12:00 T-piece 6.0 03/11/19 11:00 94 24 129/100 (110) 100 03/11/19 10:45 90 20 100 T-Piece 6.0 28 93 24 100 Intake and Output 03/11/19 03/12/19 19:00 07:00 Intake Total 1035 ml 825 ml Output Total 950 ml 820 ml Balance 85 ml 5 ml Free Water 60 ml IV Total 975 ml 825 ml Output Urine Total 950 ml 820 ml # Voids 1 # Bowel Movements 2 3 Laboratory Tests 03/12/19 04:05: White Blood Count 9.5, Red Blood Count 3.27L, Hemoglobin 8.9L, Hematocrit 27.8L , Mean Corpuscular Volume 85, Mean Corpuscular Hemoglobin 27.2, Mean Corpuscular Hemoglobin Concent 32.0, Red Cell Distribution Width 16.1H, Platelet Count 164, Mean Platelet Volume 6.5, Neutrophils (%) (Auto) 57.9, Lymphocytes (%) (Auto) 31.9, Monocytes (%) (Auto) 5.3, Eosinophils (%) (Auto) 4.4H, Basophils (%) (Auto) 0.6, Sodium Level 145, Potassium Level 3.4L, Chloride Level 110H, Carbon Dioxide Level 30, Anion Gap 6, Blood Urea Nitrogen 9 , Creatinine 0.9, Estimat Glomerular Filtration Rate , Glucose Level 98, Calcium Level 9.2, Magnesium Level 1.5L, Pro-B-Type Natriuretic Peptide 348H Height (Feet): 5 Height (Inches): 5.00 Weight (Pounds): 134 General Appearance: lethargic EENT: normal ENT inspection Neck: supple Cardiovascular: tachycardia Respiratory/Chest: decreased breath sounds Abdomen: normal bowel sounds, non tender, soft Extremities: non-tender Gary Guzman MD Mar 12, 2019 10:43
[2019-03-12] MEDS: D5 1/2NS 1,000 ML IV SCH (11:32)
--- NOTE | 2019-03-12 13:52 | NUR ---
NURSE NOTES: Wound care done, PT provided complete bed bath, complete change of linens, PT kept clean and dry. Will continue to monitor PT.
--- NOTE | 2019-03-12 13:55 | NUR ---
NURSE NOTES: PT VS stable, sieve maker shows BP 119/69; HR 93; 02 saturation @ 100%. No episodes of regurgitation orally noted. Will continue to monitor PT.
--- NOTE | 2019-03-12 14:27 | NUR ---
RD ASSESSMENT & RECOMMENDATIONS SEE CARE ACTIVITY FOR COMPLETE ASSESSMENT DAILY ESTIMATED NEEDS: Needs based on Pulmonary, wounds, bedbound/ 60kg adj 25-30 kcals/kg 7024-1640 total kcals 1.25-2 g protein/kg 75-120 g total protein 25-30 mL/kg 0257-3794 total fluid mLs NUTRITION DIAGNOSIS: * Increased kcal/prot needs R/T wound healing as evidenced by BL buttocks and sacral wound photos, refer to WC eval. * Swallowing difficulty R/T respiratory status as evidenced by pt on T-collar, now back the vent, PEG dep, TF held now d/t emesis. CURRENT TF: Glucerna 1.5 @ 35ml/hr x 24 hrs (per family request per RN) HELD at this time for emesis ENTERAL NUTRITION RECOMMENDATIONS: Glucerna 1.5 @ 45ml/hr x 24 hrs to provide 1080ml, 1620kcal, 89g prot, 820ml free water - W/ continued good TF tolerance, rec to increase goal rate to 45ml/hr x 24 hrs to meet 100% est kcal/prot needs - HOB over 30 degrees - Water flush of 170ml q 6 hrs * W/ continued emesis, rec Osmolite 1.5 for GI tolerance. Rec goal of 45ml/hr to provide: 1080ml, 1620 kcal, 68g pro, 823ml free H20. * Add Prosource 1 pack daily to provide additional 11g pro. ADDITIONAL RECOMMENDATIONS: 1) Weekly weights 2) Wound healing: Add Cristian 1pkt BID w/ continued good TF tolerance + MVI x1 daily 3) Monitor lytes, replete as needed (K, mg low) 4) Monitor BGs closely, need for NISS (wnl) 5) Monitor TF tolerance: rec Tf change as above if not tolerating .
--- NOTE | 2019-03-12 15:12 | Nephrology Progress Note ---
Assessment/Plan Problem List: (1) Acute renal failure (ARF) Assessment: Cr stable (2) Chronic respiratory failure (3) Anemia (4) Sepsis Assessment Acute renal failure Respiratory failure - Trach Low Mag- Low k , Low Na Anemia UTI / Sepsis Proteinuria / HypoAlbuminemia high Trigs Sz decubs bed bound DNR Plan lab reviewed bolus Albumin as needed K and Mag and Phos supplement as needed Hydrate as needed Urine studies avoid Nephrotoxics mag K Phos supplements as needed monitor renal parameters Subjective ROS Limited/Unobtainable: Yes Objective Objective Last 24 Hour Vital Signs Date Time Temp Pulse Resp B/P (MAP) Pulse Ox O2 Delivery O2 Flow Rate FiO2 03/12/19 14:00 93 26 146/67 (93) 100 03/12/19 13:00 94 26 119/69 (86) 99 03/12/19 13:00 99 T-Piece 6.0 28 03/12/19 12:00 6.0 28 03/12/19 12:00 T-piece 6.0 03/12/19 12:00 98.8 93 25 142/52 (82) 100 03/12/19 12:00 94 03/12/19 11:10 159/93 03/12/19 11:02 76 18 100 T-Piece 6.0 28 70 20 99 03/12/19 11:00 77 17 178/157 (164) 99 03/12/19 10:00 113 22 159/93 (115) 96 03/12/19 09:00 78 23 144/74 (97) 100 03/12/19 08:00 T-piece 6.0 03/12/19 08:00 98.5 73 21 121/43 (69) 98 03/12/19 08:00 6.0 28 03/12/19 08:00 78 03/12/19 07:08 100 T-Piece 6.0 28 03/12/19 07:07 72 20 100 T-Piece 6.0 28 76 25 100 03/12/19 07:00 80 25 165/64 (97) 100 03/12/19 06:00 86 30 158/67 (97) 100 03/12/19 05:00 94 21 160/69 (99) 97 03/12/19 04:00 97.4 101 16 163/87 (112) 98 03/12/19 04:00 T-piece 6.0 03/12/19 04:00 78 03/12/19 04:00 6.0 28 03/12/19 03:06 79 26 100 T-Piece 6.0 28 78 20 100 03/12/19 03:00 78 24 160/59 (92) 100 03/12/19 02:00 85 23 164/65 (98) 99 03/12/19 01:10 100 T-Piece 6.0 28 03/12/19 01:00 82 25 163/67 (99) 99 03/12/19 00:00 T-piece 6.0 03/12/19 00:00 6.0 28 03/12/19 00:00 76 03/12/19 00:00 98.0 71 24 161/68 (99) 100 03/11/19 23:07 69 20 100 T-Piece 6.0 28 70 23 100 03/11/19 23:00 72 19 146/61 (89) 98 03/11/19 22:00 70 21 137/98 (111) 100 03/11/19 21:00 77 23 145/54 (84) 100 03/11/19 20:00 80 24 146/58 (87) 100 03/11/19 20:00 6.0 28 03/11/19 20:00 T-piece 6.0 03/11/19 20:00 76 03/11/19 19:17 96 22 100 T-Piece 6.0 28 100 17 100 03/11/19 19:17 100 T-Piece 6.0 28 03/11/19 19:00 80 23 112/44 (66) 96 03/11/19 18:00 97 21 162/62 (95) 97 03/11/19 17:00 82 27 150/60 (90) 97 03/11/19 16:00 T-piece 6.0 03/11/19 16:00 6.0 28 03/11/19 16:00 97.6 91 25 158/53 (88) 95 03/11/19 16:00 90 Intake and Output 03/11/19 03/12/19 18:59 06:59 Intake Total 960 ml 825 ml Output Total 1050 ml 790 ml Balance -90 ml 35 ml Free Water 60 ml IV Total 900 ml 825 ml Output Urine Total 1050 ml 790 ml # Voids 1 # Bowel Movements 2 3 Laboratory Tests 03/12/19 04:05: White Blood Count 9.5, Red Blood Count 3.27L, Hemoglobin 8.9L, Hematocrit 27.8L , Mean Corpuscular Volume 85, Mean Corpuscular Hemoglobin 27.2, Mean Corpuscular Hemoglobin Concent 32.0, Red Cell Distribution Width 16.1H, Platelet Count 164, Mean Platelet Volume 6.5, Neutrophils (%) (Auto) 57.9, Lymphocytes (%) (Auto) 31.9, Monocytes (%) (Auto) 5.3, Eosinophils (%) (Auto) 4.4H, Basophils (%) (Auto) 0.6, Sodium Level 145, Potassium Level 3.4L, Chloride Level 110H, Carbon Dioxide Level 30, Anion Gap 6, Blood Urea Nitrogen 9 , Creatinine 0.9, Estimat Glomerular Filtration Rate , Glucose Level 98, Calcium Level 9.2, Magnesium Level 1.5L, Pro-B-Type Natriuretic Peptide 348H Height (Feet): 5 Height (Inches): 5.00 Weight (Pounds): 134 General Appearance: no apparent distress EENT: other - trach Cardiovascular: normal rate Respiratory/Chest: decreased breath sounds Abdomen: distended Objective no change Eric Cortez MD Mar 12, 2019 15:11
--- NOTE | 2019-03-12 16:39 | NUR ---
NURSE NOTES:WOUND CARE FOLLOW-UP NOTES:R ischial wound has resolved. Juliette epithelial with surrounding hyperpigmentation. from historical wound. Full thickness pressure injury L ischium. Juliette granulation at base of wound. Borders are macerated with Surrounding hyperpigmentation.Small amt non-odorous serous exudate noted.(L)0.7cm x (W)0.8cm. Skin hyperpigmentation from historical wound noted to Sacrum. Small sheared area noted to sacrococcygeal area.(L)0.4cm x (W)0.3cm.Small amt sanguineous exudate noted. Reabsorbed blister with semi-detached dry necrotic cap noted to web space of L thumb and L index fingers extending into palm of L hand. No odor or exudate noted. Skin assessed under tracheal collar and no erythema or evidence of Skin Breakdown noted. NO new skin concerns noted . Good hand hygiene provided to both hands. R hand contracted and fisted. Fingernails trimmed. Wound care provided along with Primary nurse. Wound Tx continued as ordered. New order obtained from to apply Betadine to wound L hand Daily. Tx done as ordered. L hand wrapped with kerlix weaving kerlix between fingers to separate fingers. Moisture Barrier applied to sacrum ,R ischium. Each site covered with Optifoam drsg. Both lower ext washed and moisturized. Cavilon Skin Barrier applied to both heels.Each heel covered with Optifoam drsgs. Pt positioned with pillows and both heels off-loaded with pillow. Tx.Plan:Apply Betadine to wound L hand. Cover with Gauze and wrap with Kerlix Daily and prn. Cleanse L ischial wound with Saline. Apply Therahoney. Apply Moisture Barrier periwound. Cover with Optifoam drsg every 3 days and prn. Apply Moisture Barrier Paste to R ischium and Sacrum. Cover each area with Optifoam drsg. Change every 3 days and prn. Apply Cavilon Skin Barrier to both heels. Cover each heel with Optifoam drsg. Change every 7 days and prn. APM/LAURITA Mattress overlay. Reposition at least every 2hours or as tolerated. Off-load heels with pillow.
--- NOTE | 2019-03-12 19:21 | NUR ---
HAND-OFF: Report and PT given to JEANNINE Sykes.
--- NOTE | 2019-03-12 19:40 | Surgery Progress Note ---
Surgery Progress Note Subjective Additional Comments Stable labs improved exam unchanged pending DC Objective Last 24 Hour Vital Signs Date Time Temp Pulse Resp B/P (MAP) Pulse Ox O2 Delivery O2 Flow Rate FiO2 03/12/19 19:30 100 T-Piece 6.0 28 03/12/19 19:28 74 18 100 T-Piece 6.0 28 70 18 100 03/12/19 19:00 73 19 146/69 (94) 100 03/12/19 18:00 86 24 126/54 (78) 100 03/12/19 17:00 80 16 114/47 (69) 100 03/12/19 16:00 97.0 86 26 143/79 (100) 100 03/12/19 16:00 T-piece 6.0 03/12/19 16:00 84 03/12/19 16:00 6.0 28 03/12/19 15:08 89 18 100 T-Piece 6.0 28 72 18 99 03/12/19 15:00 90 26 132/62 (85) 99 03/12/19 14:00 93 26 146/67 (93) 100 03/12/19 13:00 94 26 119/69 (86) 99 03/12/19 13:00 99 T-Piece 6.0 28 03/12/19 12:00 6.0 28 03/12/19 12:00 T-piece 6.0 03/12/19 12:00 98.8 93 25 142/52 (82) 100 03/12/19 12:00 94 03/12/19 11:10 159/93 03/12/19 11:02 76 18 100 T-Piece 6.0 28 70 20 99 03/12/19 11:00 77 17 178/157 (164) 99 03/12/19 10:00 113 22 159/93 (115) 96 03/12/19 09:00 78 23 144/74 (97) 100 03/12/19 08:00 T-piece 6.0 03/12/19 08:00 98.5 73 21 121/43 (69) 98 03/12/19 08:00 6.0 28 03/12/19 08:00 78 03/12/19 07:08 100 T-Piece 6.0 28 03/12/19 07:07 72 20 100 T-Piece 6.0 28 76 25 100 03/12/19 07:00 80 25 165/64 (97) 100 03/12/19 06:00 86 30 158/67 (97) 100 03/12/19 05:00 94 21 160/69 (99) 97 03/12/19 04:00 97.4 101 16 163/87 (112) 98 03/12/19 04:00 T-piece 6.0 03/12/19 04:00 78 03/12/19 04:00 6.0 28 03/12/19 03:06 79 26 100 T-Piece 6.0 28 78 20 100 03/12/19 03:00 78 24 160/59 (92) 100 03/12/19 02:00 85 23 164/65 (98) 99 03/12/19 01:10 100 T-Piece 6.0 28 03/12/19 01:00 82 25 163/67 (99) 99 03/12/19 00:00 T-piece 6.0 03/12/19 00:00 6.0 28 03/12/19 00:00 76 03/12/19 00:00 98.0 71 24 161/68 (99) 100 03/11/19 23:07 69 20 100 T-Piece 6.0 28 70 23 100 03/11/19 23:00 72 19 146/61 (89) 98 03/11/19 22:00 70 21 137/98 (111) 100 03/11/19 21:00 77 23 145/54 (84) 100 03/11/19 20:00 80 24 146/58 (87) 100 03/11/19 20:00 6.0 28 03/11/19 20:00 T-piece 6.0 03/11/19 20:00 76 I&O Intake and Output 03/11/19 03/12/19 19:00 07:00 Intake Total 1035 ml 825 ml Output Total 950 ml 820 ml Balance 85 ml 5 ml Free Water 60 ml IV Total 975 ml 825 ml Output Urine Total 950 ml 820 ml # Voids 1 # Bowel Movements 2 3 Dressing: other Wound: other Drains: other Cardiovascular: RSR Respiratory: decreased breath sounds Abdomen: soft, present bowel sounds, non-distended Extremities: no cyanosis Laboratory Tests Test 03/12/19 04:05 White Blood Count 9.5 K/UL (4.8-10.8) Red Blood Count 3.27 M/UL (4.20-5.40) L Hemoglobin 8.9 G/DL (12.0-16.0) L Hematocrit 27.8 % (37.0-47.0) L Mean Corpuscular Volume 85 FL (80-99) Mean Corpuscular Hemoglobin 27.2 PG (27.0-31.0) Mean Corpuscular Hemoglobin Concent 32.0 G/DL (32.0-36.0) Red Cell Distribution Width 16.1 % (11.6-14.8) H Platelet Count 164 K/UL (150-450) Mean Platelet Volume 6.5 FL (6.5-10.1) Neutrophils (%) (Auto) 57.9 % (45.0-75.0) Lymphocytes (%) (Auto) 31.9 % (20.0-45.0) Monocytes (%) (Auto) 5.3 % (1.0-10.0) Eosinophils (%) (Auto) 4.4 % (0.0-3.0) H Basophils (%) (Auto) 0.6 % (0.0-2.0) Sodium Level 145 MMOL/L (136-145) Potassium Level 3.4 MMOL/L (3.5-5.1) L Chloride Level 110 MMOL/L (98-107) H Carbon Dioxide Level 30 MMOL/L (21-32) Anion Gap 6 mmol/L (5-15) Blood Urea Nitrogen 9 mg/dL (7-18) Creatinine 0.9 MG/DL (0.55-1.30) Estimat Glomerular Filtration Rate mL/min (>60) Glucose Level 98 MG/DL (74-106) Calcium Level 9.2 MG/DL (8.5-10.1) Magnesium Level 1.5 MG/DL (1.8-2.4) L Pro-B-Type Natriuretic Peptide 348 pg/mL (0-125) H Plan Problems: (1) Sacral decubitus ulcer Assessment & Plan: This is a 83-year-old female with multiple medical committees that is currently admitted for medical care and management and identified to have multiple wounds requiring care. On admission patient noted to have a resolved sacral decubitus ulcer. Has had prior care and is well-healed at this time. Will ensure it does not open up again. Patient has a right ischial decubitus ulcer that is resolved. Scar intact and well formed. Will monitor to ensure it does not open up again. Patient has a left ischial decubitus ulcer that can be identified to be stage IV with palpable bone that has been resolving as noted by the periwound tissue and scar but open area approximately 1 cm x 1.5 cm few millimeters deep to bone identified. Unsure if this is been to be completely healed prior and has since opened or if has been healing at this level. No foul odor no drainage was unsure local wound care until healed Bilateral heels soft without signs of injury Resolving pressure injury L ischium(L)1.8cm x (W)1cm.Scattered biofilm at base of wound. Edges flat and adherent with surrounding hyperpigmentation. No odor or exudate noted. Sacrum is pale pink with surrounding hyperpigmentation. Hyperpigmentation R ischium with small sheared area centrally.No areas of erythema or exudate noted. Both heels are soft but blanchable. Skin Assessed under collar of trach and no evidence of skin breakdown noted. All wound Tx. are effective and continued as ordered. Pt ahs an APM/Belén mattress overlay and is being repositioned per protocols and per tolerance.No new skin concerns noted. Full thickness pressure injury L Ischium with small amt biofilm (L)1.8cm x (W) 1cm. Surrounding pink hyperpigmentation. No odor or exudate noted. [place] hyperpigmentation from previous wound noted to sacrum. Pt also noted to have Cat 2 Skin Tear dorsal L hand, L 5th metatarsal extending into palm of hand. 80% skin flap in situ.Both heels are dry firm and blanchable. No other skin concerns noted. R ischial wound has resolved. [place] epithelial with surrounding hyperpigmentation. from historical wound. Full thickness pressure injury L ischium. [place] granulation at base of wound. Borders are macerated with Surrounding hyperpigmentation.Small amt non-odorous serous exudate noted.(L)0.7cm x (W)0.8cm. Skin hyperpigmentation from historical wound noted to Sacrum. Small sheared area noted to sacrococcygeal area.(L)0.4cm x (W)0.3cm.Small amt sanguineous exudate noted. Reabsorbed blister with semi-detached dry necrotic cap noted to web space of L thumb and L index fingers extending into palm of L hand. No odor or exudate noted. Skin assessed under tracheal collar and no erythema or evidence of Skin Breakdown noted. NO new skin concerns noted . Good hand hygiene provided to both hands. R hand contracted and fisted. Fingernails trimmed. Wound care provided along with Primary nurse. Wound Tx continued as ordered. New order obtained from to apply Betadine to wound L hand Daily. Tx done as ordered. L hand wrapped with kerlix weaving kerlix between fingers to separate fingers. Moisture Barrier applied to sacrum ,R ischium. Each site covered with Optifoam drsg. Both lower ext washed and moisturized. Cav[place] Skin Barrier applied to both heels.Each heel covered with Optifoam drsgs. Pt positioned with pillows and both heels off-loaded with pillow. Tx.Plan: Apply Betadine to wound L hand. Cover with Gauze and wrap with Kerlix Daily and prn. Cleanse L ischial wound with Saline. Apply Therahoney. Apply Moisture Barrier periwound. Cover with Optifoam drsgevery 3 days and prn. Apply Moisture Barrier Paste to R ischium and Sacrum. Cover each area with Optifoam drsg. Change every 3 days and prn. Apply Cavilon Skin Barrier to both heels. Cover each heel with Optifoam drsg. Change every 7 days and prn. APM/BELÉN Mattress overlay. Reposition at least every 2hours or as tolerated. Off-load heels with pillow. Cleanse Blister Dorsal and palm of L hand with saline. Versatel One Silicone Contact Layer(Applied). Apply Silvasorb Gel. Wrap with Kerlix Gauze.Change every 7 days and prn. Apply Moisture Barrier to sacrum. Cover with Optifoam drsg. Change every 3 days and prn. Cleanse L ischial wound with saline. Apply Therahoney. Apply Moisture Barrier Paste periwound. Cover with Optifoam drsg. Change every 3 days and prn. Apply Cavilon Skin Barrier to both heels. Cover each heel with Optifoam drsg. Change every 7 days and prn. APM/BELÉN Mattress overlay. Reposition at least every 2hours or as tolerated. Off-load heels with pillow. Nutritional optimization We will monitor follow with recommendations cont with above upon d/c (2) Sepsis Assessment & Plan: IV abx as per ID trend labs improving wounds unlikely etiology likely respiratory imaging noted and okay abnormal lft's stable PICC on Abx in ICU for desaturation CXR with consolidation Evidence of left lower lobe pneumonia, also previously demonstrated Gastrostomy in good position Mild diastasis of the rectus abdominis musculature again demonstrated Retrosacral decubitus changes, better depicted on prior exam which included the pelvis Small hiatal hernia with evidence of trace gastroesophageal reflux Discussed with GI. Recommend GJ family still pending decision (3) Feeding by G-tube Assessment & Plan: DAILY ESTIMATED NEEDS: Needs based on Pulmonary, wounds, bedbound/ 60kg adj 25-28 kcals/kg [id number] total kcals 1.25-2 g protein/kg 75-120 g total protein 25-30 mL/kg 1123-3973 total fluid mLs NUTRITION DIAGNOSIS: * Swallowing difficulty R/T respiratory status as evidenced by pt on T-collar, now back the vent, PEG dep, TF changed to low rate at this time due to episodes of vomiting + residuals. * Increased kcal/prot needs R/T wound healing as evidenced by BL buttocks and sacral wound photos, refer to reynaldo. (CURRENT TF:Glucerna 1.5 @35ml) ENTERAL NUTRITION RECOMMENDATIONS: VITAL AF 1.2 @ 55ml/hr x 24 hrs to provide 1320ml, 1584kcal, 99g prot, 1060ml free water - Once medically appropriate to resume TF, rec to initiate elemental and carb control formula of Vital 1.2 for possible improved tolerance - Initiate VITAL 1.2 @ 25ml/hr x 6hrs, advance 10ml q 4-6 hrs as tolerated to goal rate - Flush per MD/ HOB over 30 degrees ADDITIONAL RECOMMENDATIONS: 1) Re-calibrated bedscale wt for accurate CBW 2) Wound healing: Add Cristian 1pkt BID w/ improved Tf tolerace + MVI x1 daily 3) Monitor lytes, replete as needed (low Mg, K) 4) Monitor NPO status, ability to resume TF. -> held on and off due to vomiting since 02/02 5) SSI prn resume tube feeds (4) Chronic vegetative state Assessment & Plan: incontinence of urine and stool. can soil dressings. nurses doing great job with monitoring and changing prn (5) Leukocytosis Walter Madera Mar 12, 2019 19:40
--- NOTE | 2019-03-12 19:48 | NUR ---
NURSE NOTES: PATIENT OPEN EYES, DID NOT FOLLOW COMMANDS, RESPIRATION REGULAR ON TRACH, FIO2 28% T- PIECE, O2 SATURATION 100% NOTED, ABDOMEN SOFT, NO BM STATUS, G TUBE INTACT, NPO STATUS, KEPT HOB 30 DEGREES ND ASPIRATION PRECAUTION, VOID WITH PURE WICK, YELLOW URINE OUTED, PICC LINE TO RIGHT UPPER ARM, INTACT AND PATENT, ONGOING IV FLUID D5 1/2NS AT 75ML/HR VIA PICC LIE, ON P200 BED, KEPT SZ AND FLL PRECAUTION, MADE LOWER BED POSITION, ON BED ALARM AND LOCKED, PROVIDED CALL LIGHT WITHIN REACH BUT UNABLE TO USE STATUS, WILL CONTINUE TO MONITOR.
[2019-03-12] MEDS: Dyna-Hex 2% Top Sol 2oz TOPIC SCH (20:20)
--- NOTE | 2019-03-12 22:00 | NUR ---
NURSE NOTES: PATIENT ASLEEP STATUS, NO PAIN OR SOB NOTED AT THIS TIME.
[2019-03-13] VITALS (25 sets, daily range): BP systolic 90–178; BP diastolic 31–88
--- NOTE | 2019-03-13 00:14 | NUR ---
NURSE NOTES: REPOSITIONED, ORAL CARE WAS DONE, NO PAIN OR SOB NOTED, WILL CONTINUE TO MONITOR.
[2019-03-13] MEDS: D5 1/2NS 1,000 ML IV SCH ×2 (00:16→12:12)
[2019-03-13] MEDS: Metoclopramide 10mg/2ml Inj IVP SCH ×4 (01:37→19:34)
--- NOTE | 2019-03-13 02:51 | NUR ---
NURSE NOTES: SUCTIONED VIA TRACH AND ORAL CARE WAS DONE, WHITISH DISCHARGE OUTED, WILL CONTINUE PLAN OF CARE.
--- NOTE | 2019-03-13 03:30 | Progress Note ---
DATE: 03/12/2019 CARDIOLOGY PROGRESS NOTE SUBJECTIVE: The patient's condition largely unchanged. Still with G-tube feedings on hold due to gastroparesis and residuals. On trach collar with frequent suctioning required. Monitored rhythm sinus. OBJECTIVE: VITAL SIGNS: Blood pressure 121/43, pulse 73, respirations 21, and afebrile. LUNGS: Coarse breath sounds. Rhonchi. ABDOMEN: Slightly distended. G-tube intact. HEART: Regular rhythm and rate. Normal S1, S2 with no new murmur. EXTREMITIES: With dependent edema. LABORATORY DATA: White count 9.5, hemoglobin 8.9. Potassium 3.4. Magnesium 1.5. Pro-natriuretic peptide 348. IMPRESSION: Condition unchanged. PLAN: 1. IV magnesium and IV potassium. 2. Recheck laboratory studies. 3. As needed antihypertensive. 4. Intravenous fluids pending resumption of the G-tube feedings. Bg Hagen M.D. DR: IOANA JOB#: [id number] CC:
--- NOTE | 2019-03-13 03:50 | NUR ---
NURSE NOTES: MORNING CARE AND ORAL CARE WAS DONE, NO BOWEL MOVEMENT STATUS.
[2019-03-13] MEDS: Albuterol/Ipratropium 3ml neb HHN SCH ×6 (04:12→23:13)
--- NOTE | 2019-03-13 05:13 | NUR ---
NURSE NOTES: NOTED BP 178/76MMHG HR 97 SINUS RHYTHM, KEPT HOB OVER 30 DEGREES AT 0400AM. GIVEN APRESOLINE 10MG BY IVP FOR HIGH BP 163/59MMHG AT THIS TIME, WILL CONTINUE TO MONITOR.
--- NOTE | 2019-03-13 06:40 | NUR ---
NURSE NOTES: SEEN THE PATIENT BY DR. CABA, PATIENT ASLEEP STATUS, VSS, NO ACUTE DISTRESS NOTED AT THIS TIME.
--- NOTE | 2019-03-13 07:09 | Pulmonolgy Critical Care Note ---
Critical Care - Asmt/Plan Assessment/Plan: Pulmonary CCM Progress Note Assessment/Plan Impression: Sepsis syndrome Pneumonia, KPC VDRF, Trach, G tube, Hypertension, Cardiac disease, Dementia, Previous CVA, Seizure disorder, Respiratory failure with hypoxia, on TC Anemia Sacral ulcer renal cyst pulmonary congestion Plan respiratory care to continue as is, TC as tolerated atropine neb therapy SNF meds as is off vent as able and has been off for several day Oxygen as needed Monitor labs daily changes noted and reviewed feeds as tolerated monitor albumin levels and provide protein and nutrition elevate head aspiration precautions Patient is a DNR. No CPR. ICU care reviewed medications/laboratory data/nursing notes/ICU care reviewed in detail note reviewed and edited care discussed with RN and RT ICU time spent 45 minutes Subjective Allergies: Coded Allergies: CODEINE (Verified Allergy, Unknown, HIVES, 09/15/09) Subjective respiratory care noted congestion- improved with atropine ICU care reviewed supportive care noted and reviewed RT care reviewed overnight care noted findings reviewed and discussed in detail with nursing and RT seen earlier this am Objective Vital Signs Noted Objective WDWN NAD contracted off vent reduced breath sounds bilaterally with some rhonchi; no wheeze [id number] without MRG NABS nontender no HSM no CC minimal nonfocal nonverbal trach and gt reviewed and edited Laboratory Tests Noted Critical Care - Objective Last 24 Hour Vital Signs Date Time Temp Pulse Resp B/P (MAP) Pulse Ox O2 Delivery O2 Flow Rate FiO2 03/13/19 06:00 106 12 147/45 (79) 97 03/13/19 05:13 163/59 03/13/19 05:00 87 25 163/59 (93) 100 03/13/19 04:00 T-piece 6.0 03/13/19 04:00 6.0 28 03/13/19 04:00 98.2 97 22 178/76 (110) 99 03/13/19 03:40 88 18 100 T-Piece 6.0 28 85 18 100 03/13/19 03:01 104 03/13/19 03:00 108 16 148/88 (108) 95 03/13/19 02:00 78 20 160/67 (98) 100 03/13/19 01:00 100 T-Piece 6.0 28 03/13/19 01:00 78 19 150/65 (93) 100 03/13/19 00:00 T-piece 6.0 03/13/19 00:00 97.7 71 18 150/67 (94) 100 03/13/19 00:00 6.0 28 03/12/19 23:30 75 18 100 T-Piece 6.0 28 73 18 100 03/12/19 23:10 72 03/12/19 23:00 73 21 134/67 (89) 100 03/12/19 22:30 78 22 100 T-Piece 6.0 28 74 22 100 03/12/19 22:15 86 26 124/62 (82) 99 03/12/19 22:12 78 20 84/53 (63) 100 03/12/19 22:00 76 19 61/11 (28) 99 03/12/19 21:00 88 19 135/57 (83) 100 03/12/19 20:00 6.0 28 03/12/19 20:00 97.4 78 23 134/62 (86) 100 03/12/19 20:00 T-piece 6.0 03/12/19 19:30 100 T-Piece 6.0 28 03/12/19 19:29 75 03/12/19 19:28 74 18 100 T-Piece 6.0 28 70 18 100 03/12/19 19:00 73 19 146/69 (94) 100 03/12/19 18:00 86 24 126/54 (78) 100 03/12/19 17:00 80 16 114/47 (69) 100 03/12/19 16:00 97.0 86 26 143/79 (100) 100 03/12/19 16:00 T-piece 6.0 03/12/19 16:00 84 03/12/19 16:00 6.0 28 03/12/19 15:08 89 18 100 T-Piece 6.0 28 72 18 99 03/12/19 15:00 90 26 132/62 (85) 99 03/12/19 14:00 93 26 146/67 (93) 100 03/12/19 13:00 94 26 119/69 (86) 99 03/12/19 13:00 99 T-Piece 6.0 28 03/12/19 12:00 6.0 28 03/12/19 12:00 T-piece 6.0 03/12/19 12:00 98.8 93 25 142/52 (82) 100 03/12/19 12:00 94 03/12/19 11:10 159/93 03/12/19 11:02 76 18 100 T-Piece 6.0 28 70 20 99 03/12/19 11:00 77 17 178/157 (164) 99 03/12/19 10:00 113 22 159/93 (115) 96 03/12/19 09:00 78 23 144/74 (97) 100 03/12/19 08:00 T-piece 6.0 03/12/19 08:00 98.5 73 21 121/43 (69) 98 03/12/19 08:00 6.0 28 03/12/19 08:00 78 Critical Care - Subjective ROS Limited/Unobtainable: No FI02: 28 Vent Support Mode: CPAP Vent Tidal Volume: 450 Sputum Amount: Large PEEP: 5.0 PIP: 19 I&O: Intake and Output 03/12/19 03/13/19 19:00 07:00 Intake Total 1660 ml 990 ml Output Total 740 ml 880 ml Balance 920 ml 110 ml IV Total 1600 ml 900 ml Other 60 ml 90 ml Output Urine Total 740 ml 880 ml ET-Tube: 6.0 Bg Moffett MD Mar 13, 2019 07:09
--- NOTE | 2019-03-13 07:16 | NUR ---
HAND-OFF: Report given to JEANNINE JOHNSON.
--- NOTE | 2019-03-13 08:00 | NUR ---
NURSE NOTES: Received change of shift report from Onel RN. Pt is asleep, opens eyes to touch, does not follow with eyes, nonverbal. Pt has trach Shiley 6 XLT connected to T-piece at FIO2 28% with 100% O2Sat. Bilateral inspiratory/expiratory rhonchi/rales are heard on auscultation. monitoring specialist displays NSR with heart rate in the 80's. Pt has right upper arm double lumen PICC line IV access with IV fluid D5 0.45%NS infusing at 75ml/hour. Temp 98.3F axillary. Pt has GT with feeding Glucerna currently on hold. No residual noted when checked. Abdomen is large, round, soft, nontender to touch with hypoactive bowel sounds. External female catheter is noted, draining clear/yellow urine. Skin multiple wounds covered with dressing per MD order, currently dry/intact, pls refer to w[facility] notes. Pt is on pressure releasing mattress with bilateral lower extremities elevated on pillows/off heels. Bilateral upper extremity contractures on noted. Head of bed is at 30 degrees, bed in lowest position and locked, three side rails up and call light within reach. Will continue to monitor pt and follow plan of care per MD orders and protocol.
--- NOTE | 2019-03-13 09:00 | NUR ---
NURSE NOTES: AM meds were administered and oral care was done. Pt was suctioned, trach is dry, however oral clear moderate secretions are noted. Pt was repositioned. VS remain stable. Pt is resting with no signs/symptoms of any distress noted.
[2019-03-13] MEDS: levETIRAcetam 500mg/5ml Liquid GT SCH ×2 (09:09→20:35)
[2019-03-13] MEDS: Bacitracin Oint 15gm Tube TOPIC SCH ×3 (09:09→17:04)
[2019-03-13] MEDS: Heparin 5000 units/ml inj SUBQ SCH ×2 (09:11→20:36)
--- NOTE | 2019-03-13 09:27 | General Progress Note ---
Assessment/Plan Status: stable, progressing Assessment/Plan: Assessment - N/V, periodic, including suctioning of feeds from mouth - suspect due to gastroparesis, possibly also from suctioning reflex - DTR declines GJ conversion. - another message left on her VM - will Rx with reglan, short term - suction gently - Elevated Alk phos / LFT - CT negative - abd U/S negative - check hepatitis serologies - negative - Anemia with OB (-) stools - Resp failure, s/p Trach - dysphagia, s/p PEG --> s/p GT change - OBS - minor GT tract inflammation / infection - poor Px Recommendations - laxative PRN - antibiotic ointment to GT site PRN - aspiration precautions - elevate HOB - PPI -GTF will start low does today Subjective ROS Limited/Unobtainable: No Allergies: Coded Allergies: CODEINE (Verified Allergy, Unknown, HIVES, 09/15/09) Objective Last 24 Hour Vital Signs Date Time Temp Pulse Resp B/P (MAP) Pulse Ox O2 Delivery O2 Flow Rate FiO2 03/13/19 07:21 100 T-Piece 6.0 28 03/13/19 07:21 78 18 100 T-Piece 6.0 28 77 18 100 03/13/19 07:00 88 25 90/37 (54) 95 03/13/19 06:00 106 12 147/45 (79) 97 03/13/19 05:13 163/59 03/13/19 05:00 87 25 163/59 (93) 100 03/13/19 04:00 T-piece 6.0 03/13/19 04:00 6.0 28 03/13/19 04:00 98.2 97 22 178/76 (110) 99 03/13/19 03:40 88 18 100 T-Piece 6.0 28 85 18 100 03/13/19 03:01 104 03/13/19 03:00 108 16 148/88 (108) 95 03/13/19 02:00 78 20 160/67 (98) 100 03/13/19 01:00 100 T-Piece 6.0 28 03/13/19 01:00 78 19 150/65 (93) 100 03/13/19 00:00 T-piece 6.0 03/13/19 00:00 97.7 71 18 150/67 (94) 100 03/13/19 00:00 6.0 28 03/12/19 23:30 75 18 100 T-Piece 6.0 28 73 18 100 03/12/19 23:10 72 03/12/19 23:00 73 21 134/67 (89) 100 03/12/19 22:30 78 22 100 T-Piece 6.0 28 74 22 100 03/12/19 22:15 86 26 124/62 (82) 99 03/12/19 22:12 78 20 84/53 (63) 100 03/12/19 22:00 76 19 61/11 (28) 99 03/12/19 21:00 88 19 135/57 (83) 100 03/12/19 20:00 6.0 28 03/12/19 20:00 97.4 78 23 134/62 (86) 100 03/12/19 20:00 T-piece 6.0 03/12/19 19:30 100 T-Piece 6.0 28 03/12/19 19:29 75 03/12/19 19:28 74 18 100 T-Piece 6.0 28 70 18 100 03/12/19 19:00 73 19 146/69 (94) 100 03/12/19 18:00 86 24 126/54 (78) 100 03/12/19 17:00 80 16 114/47 (69) 100 03/12/19 16:00 97.0 86 26 143/79 (100) 100 03/12/19 16:00 T-piece 6.0 03/12/19 16:00 84 03/12/19 16:00 6.0 28 03/12/19 15:08 89 18 100 T-Piece 6.0 28 72 18 99 03/12/19 15:00 90 26 132/62 (85) 99 03/12/19 14:00 93 26 146/67 (93) 100 03/12/19 13:00 94 26 119/69 (86) 99 03/12/19 13:00 99 T-Piece 6.0 28 03/12/19 12:00 6.0 28 03/12/19 12:00 T-piece 6.0 03/12/19 12:00 98.8 93 25 142/52 (82) 100 03/12/19 12:00 94 03/12/19 11:10 159/93 03/12/19 11:02 76 18 100 T-Piece 6.0 28 70 20 99 03/12/19 11:00 77 17 178/157 (164) 99 03/12/19 10:00 113 22 159/93 (115) 96 Intake and Output 03/12/19 03/13/19 19:00 07:00 Intake Total 1660 ml 990 ml Output Total 740 ml 880 ml Balance 920 ml 110 ml IV Total 1600 ml 900 ml Other 60 ml 90 ml Output Urine Total 740 ml 880 ml Height (Feet): 5 Height (Inches): 5.00 Weight (Pounds): 133 General Appearance: lethargic EENT: normal ENT inspection Neck: supple Cardiovascular: normal rate Respiratory/Chest: decreased breath sounds Abdomen: normal bowel sounds, non tender, soft Extremities: non-tender Gary Guzman MD Mar 13, 2019 09:27
[2019-03-13] MEDS: Amikacin for Inhalation 2ML INH SCH ×2 (10:36→22:46)
--- NOTE | 2019-03-13 12:00 | NUR ---
NURSE NOTES: VS remains stable while pt is maintained on FIO2 28% via T-piece/Shiley trach. Pt is afebrile. Oral care was done. Pt was suctioned, output of moderate amount of clear/white secretions. Pt was repositioned, bilateral lower extremities elevated/off heels.
--- NOTE | 2019-03-13 14:00 | NUR ---
NURSE NOTES: Pt has moderate amount of clear/white oral secretions and was suctioned. VS remain stable. Pt is resting with no signs/symptoms of any distress noted.
--- NOTE | 2019-03-13 14:15 | Nephrology Progress Note ---
Assessment/Plan Problem List: (1) Acute renal failure (ARF) Assessment: Cr stable (2) Chronic respiratory failure (3) Anemia (4) Sepsis Assessment Acute renal failure Respiratory failure - Trach Low Mag- Low k , Low Na Anemia UTI / Sepsis Proteinuria / HypoAlbuminemia high Trigs Sz decubs bed bound DNR Plan lab reviewed bolus Albumin as needed K and Mag and Phos supplement as needed Hydrate as needed Urine studies avoid Nephrotoxics mag K Phos supplements as needed monitor renal parameters Subjective ROS Limited/Unobtainable: Yes Objective Objective Last 24 Hour Vital Signs Date Time Temp Pulse Resp B/P (MAP) Pulse Ox O2 Delivery O2 Flow Rate FiO2 03/13/19 12:23 100 T-Piece 6.0 28 03/13/19 12:00 T-piece 6.0 03/13/19 12:00 6.0 28 03/13/19 12:00 98.2 77 24 95/42 (59) 98 03/13/19 11:00 86 22 121/49 (73) 100 03/13/19 10:40 78 18 100 T-Piece 6.0 28 74 18 99 03/13/19 10:30 80 22 100 T-Piece 6.0 28 78 20 100 03/13/19 10:00 89 25 132/57 (82) 100 03/13/19 09:00 81 22 107/31 (56) 96 03/13/19 08:00 6.0 28 03/13/19 08:00 98.3 90 27 111/40 (63) 96 03/13/19 08:00 T-piece 6.0 03/13/19 08:00 88 03/13/19 07:21 100 T-Piece 6.0 28 03/13/19 07:21 78 18 100 T-Piece 6.0 28 77 18 100 03/13/19 07:00 88 25 90/37 (54) 95 03/13/19 06:00 106 12 147/45 (79) 97 03/13/19 05:13 163/59 03/13/19 05:00 87 25 163/59 (93) 100 03/13/19 04:00 T-piece 6.0 03/13/19 04:00 6.0 28 03/13/19 04:00 98.2 97 22 178/76 (110) 99 03/13/19 03:40 88 18 100 T-Piece 6.0 28 85 18 100 03/13/19 03:01 104 03/13/19 03:00 108 16 148/88 (108) 95 03/13/19 02:00 78 20 160/67 (98) 100 03/13/19 01:00 100 T-Piece 6.0 28 03/13/19 01:00 78 19 150/65 (93) 100 03/13/19 00:00 T-piece 6.0 03/13/19 00:00 97.7 71 18 150/67 (94) 100 03/13/19 00:00 6.0 28 03/12/19 23:30 75 18 100 T-Piece 6.0 28 73 18 100 03/12/19 23:10 72 03/12/19 23:00 73 21 134/67 (89) 100 03/12/19 22:30 78 22 100 T-Piece 6.0 28 74 22 100 03/12/19 22:15 86 26 124/62 (82) 99 03/12/19 22:12 78 20 84/53 (63) 100 03/12/19 22:00 76 19 61/11 (28) 99 03/12/19 21:00 88 19 135/57 (83) 100 03/12/19 20:00 6.0 28 03/12/19 20:00 97.4 78 23 134/62 (86) 100 03/12/19 20:00 T-piece 6.0 03/12/19 19:30 100 T-Piece 6.0 28 03/12/19 19:29 75 03/12/19 19:28 74 18 100 T-Piece 6.0 28 70 18 100 03/12/19 19:00 73 19 146/69 (94) 100 03/12/19 18:00 86 24 126/54 (78) 100 03/12/19 17:00 80 16 114/47 (69) 100 03/12/19 16:00 97.0 86 26 143/79 (100) 100 03/12/19 16:00 T-piece 6.0 03/12/19 16:00 84 03/12/19 16:00 6.0 28 03/12/19 15:08 89 18 100 T-Piece 6.0 28 72 18 99 03/12/19 15:00 90 26 132/62 (85) 99 Intake and Output 03/12/19 03/13/19 19:00 07:00 Intake Total 1660 ml 990 ml Output Total 740 ml 880 ml Balance 920 ml 110 ml IV Total 1600 ml 900 ml Other 60 ml 90 ml Output Urine Total 740 ml 880 ml Height (Feet): 5 Height (Inches): 5.00 Weight (Pounds): 133 General Appearance: no apparent distress Objective no change Eric Cortez MD Mar 13, 2019 14:15
--- NOTE | 2019-03-13 14:56 | Surgery Progress Note ---
Surgery Progress Note Subjective Additional Comments pending d/c Objective Last 24 Hour Vital Signs Date Time Temp Pulse Resp B/P (MAP) Pulse Ox O2 Delivery O2 Flow Rate FiO2 03/13/19 12:23 100 T-Piece 6.0 28 03/13/19 12:00 T-piece 6.0 03/13/19 12:00 6.0 28 03/13/19 12:00 98.2 77 24 95/42 (59) 98 03/13/19 11:00 86 22 121/49 (73) 100 03/13/19 10:40 78 18 100 T-Piece 6.0 28 74 18 99 03/13/19 10:30 80 22 100 T-Piece 6.0 28 78 20 100 03/13/19 10:00 89 25 132/57 (82) 100 03/13/19 09:00 81 22 107/31 (56) 96 03/13/19 08:00 6.0 28 03/13/19 08:00 98.3 90 27 111/40 (63) 96 03/13/19 08:00 T-piece 6.0 03/13/19 08:00 88 03/13/19 07:21 100 T-Piece 6.0 28 03/13/19 07:21 78 18 100 T-Piece 6.0 28 77 18 100 03/13/19 07:00 88 25 90/37 (54) 95 03/13/19 06:00 106 12 147/45 (79) 97 03/13/19 05:13 163/59 03/13/19 05:00 87 25 163/59 (93) 100 03/13/19 04:00 T-piece 6.0 03/13/19 04:00 6.0 28 03/13/19 04:00 98.2 97 22 178/76 (110) 99 03/13/19 03:40 88 18 100 T-Piece 6.0 28 85 18 100 03/13/19 03:01 104 03/13/19 03:00 108 16 148/88 (108) 95 03/13/19 02:00 78 20 160/67 (98) 100 03/13/19 01:00 100 T-Piece 6.0 28 03/13/19 01:00 78 19 150/65 (93) 100 03/13/19 00:00 T-piece 6.0 03/13/19 00:00 97.7 71 18 150/67 (94) 100 03/13/19 00:00 6.0 28 03/12/19 23:30 75 18 100 T-Piece 6.0 28 73 18 100 03/12/19 23:10 72 03/12/19 23:00 73 21 134/67 (89) 100 03/12/19 22:30 78 22 100 T-Piece 6.0 28 74 22 100 03/12/19 22:15 86 26 124/62 (82) 99 03/12/19 22:12 78 20 84/53 (63) 100 03/12/19 22:00 76 19 61/11 (28) 99 03/12/19 21:00 88 19 135/57 (83) 100 03/12/19 20:00 6.0 28 03/12/19 20:00 97.4 78 23 134/62 (86) 100 03/12/19 20:00 T-piece 6.0 03/12/19 19:30 100 T-Piece 6.0 28 03/12/19 19:29 75 03/12/19 19:28 74 18 100 T-Piece 6.0 28 70 18 100 03/12/19 19:00 73 19 146/69 (94) 100 03/12/19 18:00 86 24 126/54 (78) 100 03/12/19 17:00 80 16 114/47 (69) 100 03/12/19 16:00 97.0 86 26 143/79 (100) 100 03/12/19 16:00 T-piece 6.0 03/12/19 16:00 84 03/12/19 16:00 6.0 28 03/12/19 15:08 89 18 100 T-Piece 6.0 28 72 18 99 03/12/19 15:00 90 26 132/62 (85) 99 I&O Intake and Output 03/12/19 03/13/19 19:00 07:00 Intake Total 1660 ml 990 ml Output Total 740 ml 880 ml Balance 920 ml 110 ml IV Total 1600 ml 900 ml Other 60 ml 90 ml Output Urine Total 740 ml 880 ml Dressing: other Wound: other Drains: wound vac Cardiovascular: RSR Respiratory: decreased breath sounds Abdomen: soft, present bowel sounds, non-distended Extremities: no cyanosis, other Plan Problems: (1) Sacral decubitus ulcer Assessment & Plan: This is a 83-year-old female with multiple medical committees that is currently admitted for medical care and management and identified to have multiple wounds requiring care. On admission patient noted to have a resolved sacral decubitus ulcer. Has had prior care and is well-healed at this time. Will ensure it does not open up again. Patient has a right ischial decubitus ulcer that is resolved. Scar intact and well formed. Will monitor to ensure it does not open up again. Patient has a left ischial decubitus ulcer that can be identified to be stage IV with palpable bone that has been resolving as noted by the periwound tissue and scar but open area approximately 1 cm x 1.5 cm few millimeters deep to bone identified. Unsure if this is been to be completely healed prior and has since opened or if has been healing at this level. No foul odor no drainage was unsure local wound care until healed Bilateral heels soft without signs of injury Resolving pressure injury L ischium(L)1.8cm x (W)1cm.Scattered biofilm at base of wound. Edges flat and adherent with surrounding hyperpigmentation. No odor or exudate noted. Sacrum is pale pink with surrounding hyperpigmentation. Hyperpigmentation R ischium with small sheared area centrally.No areas of erythema or exudate noted. Both heels are soft but blanchable. Skin Assessed under collar of trach and no evidence of skin breakdown noted. All wound Tx. are effective and continued as ordered. Pt ahs an APM/Belén mattress overlay and is being repositioned per protocols and per tolerance.No new skin concerns noted. Full thickness pressure injury L Ischium with small amt biofilm (L)1.8cm x (W) 1cm. Surrounding pink hyperpigmentation. No odor or exudate noted. [place] hyperpigmentation from previous wound noted to sacrum. Pt also noted to have Cat 2 Skin Tear dorsal L hand, L 5th metatarsal extending into palm of hand. 80% skin flap in situ.Both heels are dry firm and blanchable. No other skin concerns noted. R ischial wound has resolved. [place] epithelial with surrounding hyperpigmentation. from historical wound. Full thickness pressure injury L ischium. [place] granulation at base of wound. Borders are macerated with Surrounding hyperpigmentation.Small amt non-odorous serous exudate noted.(L)0.7cm x (W)0.8cm. Skin hyperpigmentation from historical wound noted to Sacrum. Small sheared area noted to sacrococcygeal area.(L)0.4cm x (W)0.3cm.Small amt sanguineous exudate noted. Reabsorbed blister with semi-detached dry necrotic cap noted to web space of L thumb and L index fingers extending into palm of L hand. No odor or exudate noted. Skin assessed under tracheal collar and no erythema or evidence of Skin Breakdown noted. NO new skin concerns noted . Good hand hygiene provided to both hands. R hand contracted and fisted. Fingernails trimmed. Wound care provided along with Primary nurse. Wound Tx continued as ordered. New order obtained from to apply Betadine to wound L hand Daily. Tx done as ordered. L hand wrapped with kerlix weaving kerlix between fingers to separate fingers. Moisture Barrier applied to sacrum ,R ischium. Each site covered with Optifoam drsg. Both lower ext washed and moisturized. [place] Skin Barrier applied to both heels.Each heel covered with Optifoam drsgs. Pt positioned with pillows and both heels off-loaded with pillow. Tx.Plan: Apply Betadine to wound L hand. Cover with Gauze and wrap with Kerlix Daily and prn. Cleanse L ischial wound with Saline. Apply Therahoney. Apply Moisture Barrier periwound. Cover with Optifoam drsgevery 3 days and prn. Apply Moisture Barrier Paste to R ischium and Sacrum. Cover each area with Optifoam drsg. Change every 3 days and prn. Apply Cavilon Skin Barrier to both heels. Cover each heel with Optifoam drsg. Change every 7 days and prn. APM/BELÉN Mattress overlay. Reposition at least every 2hours or as tolerated. Off-load heels with pillow. Cleanse Blister Dorsal and palm of L hand with saline. Versatel One Silicone Contact Layer(Applied). Apply Silvasorb Gel. Wrap with Kerlix Gauze.Change every 7 days and prn. Apply Moisture Barrier to sacrum. Cover with Optifoam drsg. Change every 3 days and prn. Cleanse L ischial wound with saline. Apply Therahoney. Apply Moisture Barrier Paste periwound. Cover with Optifoam drsg. Change every 3 days and prn. Apply Cavilon Skin Barrier to both heels. Cover each heel with Optifoam drsg. Change every 7 days and prn. APM/BELÉN Mattress overlay. Reposition at least every 2hours or as tolerated. Off-load heels with pillow. Nutritional optimization We will monitor follow with recommendations cont with above upon d/c (2) Sepsis Assessment & Plan: IV abx as per ID trend labs improving wounds unlikely etiology likely respiratory imaging noted and okay abnormal lft's stable PICC on Abx in ICU for desaturation CXR with consolidation Evidence of left lower lobe pneumonia, also previously demonstrated Gastrostomy in good position Mild diastasis of the rectus abdominis musculature again demonstrated Retrosacral decubitus changes, better depicted on prior exam which included the pelvis Small hiatal hernia with evidence of trace gastroesophageal reflux Discussed with GI. Recommend GJ family still pending decision (3) Feeding by G-tube Assessment & Plan: DAILY ESTIMATED NEEDS: Needs based on Pulmonary, wounds, bedbound/ 60kg adj 25-28 kcals/kg 9128-3660 total kcals 1.25-2 g protein/kg 75-120 g total protein 25-30 mL/kg 5941-9929 total fluid mLs NUTRITION DIAGNOSIS: * Swallowing difficulty R/T respiratory status as evidenced by pt on T-collar, now back the vent, PEG dep, TF changed to low rate at this time due to episodes of vomiting + residuals. * Increased kcal/prot needs R/T wound healing as evidenced by BL buttocks and sacral wound photos, refer to eval. (CURRENT TF:Glucerna 1.5 @35ml) ENTERAL NUTRITION RECOMMENDATIONS: VITAL AF 1.2 @ 55ml/hr x 24 hrs to provide 1320ml, 1584kcal, 99g prot, 1060ml free water - Once medically appropriate to resume TF, rec to initiate elemental and carb control formula of Vital 1.2 for possible improved tolerance - Initiate VITAL 1.2 @ 25ml/hr x 6hrs, advance 10ml q 4-6 hrs as tolerated to goal rate - Flush per MD/ HOB over 30 degrees ADDITIONAL RECOMMENDATIONS: 1) Re-calibrated bedscale wt for accurate CBW 2) Wound healing: Add Cristian 1pkt BID w/ improved Tf tolerace + MVI x1 daily 3) Monitor lytes, replete as needed (low Mg, K) 4) Monitor NPO status, ability to resume TF. -> held on and off due to vomiting since 02/02 5) SSI prn resume tube feeds (4) Chronic vegetative state Assessment & Plan: incontinence of urine and stool. can soil dressings. nurses doing great job with monitoring and changing prn (5) Leukocytosis Walter Madera Mar 13, 2019 14:56
--- NOTE | 2019-03-13 15:01 | Infectious Diseases Prog Note ---
Assessment/Plan Assessment/Plan A 1. Providencia & Klebsiella pneumonia 2. respiratory failure 3. hypertension 4. CVA 5. dementia 6. sacral decubitus ulcer 7. rectal VRE colonization 8. Anemia 9. Proteus UTI 10. Acute renal failure 11. Leukocytosis resolved P 1.Continue Amikacin inhaler X 3 days 2. Frequent suctioning 3. Remove PICC line before discharge Subjective ROS Limited/Unobtainable: Yes Respiratory: Reports: productive cough Gastrointestinal/Abdominal: Reports: other - GT feeding on hold Allergies: Coded Allergies: CODEINE (Verified Allergy, Unknown, HIVES, 09/15/09) Objective Vital Signs Last 24 Hour Vital Signs Date Time Temp Pulse Resp B/P (MAP) Pulse Ox O2 Delivery O2 Flow Rate FiO2 03/13/19 12:23 100 T-Piece 6.0 28 03/13/19 12:00 T-piece 6.0 03/13/19 12:00 6.0 28 03/13/19 12:00 98.2 77 24 95/42 (59) 98 03/13/19 11:00 86 22 121/49 (73) 100 03/13/19 10:40 78 18 100 T-Piece 6.0 28 74 18 99 03/13/19 10:30 80 22 100 T-Piece 6.0 28 78 20 100 03/13/19 10:00 89 25 132/57 (82) 100 03/13/19 09:00 81 22 107/31 (56) 96 03/13/19 08:00 6.0 28 03/13/19 08:00 98.3 90 27 111/40 (63) 96 03/13/19 08:00 T-piece 6.0 03/13/19 08:00 88 03/13/19 07:21 100 T-Piece 6.0 28 03/13/19 07:21 78 18 100 T-Piece 6.0 28 77 18 100 03/13/19 07:00 88 25 90/37 (54) 95 03/13/19 06:00 106 12 147/45 (79) 97 03/13/19 05:13 163/59 03/13/19 05:00 87 25 163/59 (93) 100 03/13/19 04:00 T-piece 6.0 03/13/19 04:00 6.0 28 03/13/19 04:00 98.2 97 22 178/76 (110) 99 03/13/19 03:40 88 18 100 T-Piece 6.0 28 85 18 100 03/13/19 03:01 104 03/13/19 03:00 108 16 148/88 (108) 95 03/13/19 02:00 78 20 160/67 (98) 100 03/13/19 01:00 100 T-Piece 6.0 28 03/13/19 01:00 78 19 150/65 (93) 100 03/13/19 00:00 T-piece 6.0 03/13/19 00:00 97.7 71 18 150/67 (94) 100 03/13/19 00:00 6.0 28 03/12/19 23:30 75 18 100 T-Piece 6.0 28 73 18 100 03/12/19 23:10 72 03/12/19 23:00 73 21 134/67 (89) 100 03/12/19 22:30 78 22 100 T-Piece 6.0 28 74 22 100 03/12/19 22:15 86 26 124/62 (82) 99 03/12/19 22:12 78 20 84/53 (63) 100 03/12/19 22:00 76 19 61/11 (28) 99 03/12/19 21:00 88 19 135/57 (83) 100 03/12/19 20:00 6.0 28 03/12/19 20:00 97.4 78 23 134/62 (86) 100 03/12/19 20:00 T-piece 6.0 03/12/19 19:30 100 T-Piece 6.0 28 03/12/19 19:29 75 03/12/19 19:28 74 18 100 T-Piece 6.0 28 70 18 100 03/12/19 19:00 73 19 146/69 (94) 100 03/12/19 18:00 86 24 126/54 (78) 100 03/12/19 17:00 80 16 114/47 (69) 100 03/12/19 16:00 97.0 86 26 143/79 (100) 100 03/12/19 16:00 T-piece 6.0 03/12/19 16:00 84 03/12/19 16:00 6.0 28 03/12/19 15:08 89 18 100 T-Piece 6.0 28 72 18 99 03/12/19 15:00 90 26 132/62 (85) 99 Height (Feet): 5 Height (Inches): 5.00 Weight (Pounds): 133 HEENT: status post trach Respiratory/Chest: rhonchi - bilaterally, other - respiratory secretions, on T bar Cardiovascular: normal rate, other - R arm PICC line Abdomen: soft, non tender, other - Gt in place Extremities: no edema Neurologic/Psychiatric: aphasia Current Medications Medications (Trade) Dose Ordered Sig/Maicol Route PRN Reason Start Time Stop Time Status Last Admin Dose Admin Albuterol/ Ipratropium (Albuterol/ Ipratropium) 3 ml Q4HRT HHN 03/10/19 03:00 03/15/19 02:59 03/13/19 14:37 Amikacin Sulfate (Amikin) 500 mg Q12HR@10,22 INH 03/07/19 11:00 03/16/19 23:59 03/13/19 10:36 Atropine Sulfate (Atropine Opth Adriana) 2 drop TID SL 03/07/19 09:00 04/06/19 08:59 03/13/19 12:13 Bacitracin (Bacitracin 15gm tube) 1 applic THREE TIMES A DAY TOPIC 02/28/19 18:30 03/30/19 18:29 03/13/19 12:13 Chlorhexidine Gluconate (Cesilia-Hex 2%) 1 applic DAILY@2000 TOPIC 03/12/19 20:00 04/11/19 19:59 03/12/19 20:20 Dextrose/Sodium Chloride 1,000 ml @ 75 mls/hr [id number] IV 03/07/19 11:15 04/06/19 11:14 03/13/19 12:12 Famotidine (Pepcid) 20 mg BID GT 03/02/19 18:00 04/01/19 17:59 03/13/19 09:08 Heparin Sodium (Porcine) (Heparin 5000 units/ml) 5,000 units EVERY 12 HOURS SUBQ 02/18/19 09:00 03/16/19 23:14 03/13/19 09:11 Hydralazine HCl (Apresoline) 10 mg Q4H PRN IV For High Blood Pressure 03/12/19 09:00 04/11/19 08:59 03/13/19 05:13 Levetiracetam (Keppra) 750 mg Q12HR GT 02/18/19 09:00 03/16/19 23:29 03/13/19 09:09 Metoclopramide HCl (Reglan) 5 mg Q6H IVP 03/10/19 02:00 03/24/19 01:59 03/13/19 14:03 Potassium Chloride (K-Dur) 20 meq TWICE A DAY GT 03/12/19 09:00 04/11/19 08:59 03/13/19 09:08 Scopolamine (TransDerm Scop 1.5mg/72HR Patch) 1.5 mg Q72H TDERMAL 03/11/19 13:00 04/10/19 12:59 03/11/19 13:52 Chauncey Liriano MD Mar 13, 2019 15:01
--- NOTE | 2019-03-13 16:32 | NUR ---
NURSE NOTES: Pt has large amount of oral secretions and was suctioned. Oral care was done. Pt remains afebrile with stable VS. Pt was cleaned and repositioned.
--- NOTE | 2019-03-13 18:00 | NUR ---
NURSE NOTES: Pt was cleaned, wound dressings changed, gown/bed linens were changed, purewhick/external catheter was replaced. Oral care was done and pt suctioned. Pt was repositioned. VS remain stable. Pt is resting with no signs/symptoms of pain or distress noted. Addendum: 03/13/19 at 1926 by JOSELYN ALVARENGA RN GT feeding was placed back on per Dr Guzman's order, feeding remains the same Glucerna 1.5, with new rate of 25ml/hour. No residual is noted.
--- NOTE | 2019-03-13 19:22 | NUR ---
HAND-OFF: Report given to Onel PAEZ. Endorsed plan of care.
[2019-03-13] MEDS: Dyna-Hex 2% Top Sol 2oz TOPIC SCH (19:34)
--- NOTE | 2019-03-13 19:57 | NUR ---
NURSE NOTES: PATIENT ASLEEP, RESPONSE TO NAME, OPEN EYES, DID NOT FOLLOW COMMANDS, RESPIRATION REGULAR ON TRACH, FIO2 28% T- PIECE, O2 SATURATION 100% NOTED, ABDOMEN SOFT, NO BM STATUS, G TUBE INTACT, GLUCERNA 1.5 AT 25ML/HR, NO RESIDUE STATUS AND NO N/V NOTED, KEPT HOB 30 DEGREES AND ASPIRATION PRECAUTION, VOID WITH PURE WICK, YELLOW URINE OUTED, PICC LINE TO RIGHT UPPER ARM, INTACT AND PATENT, ONGOING IV FLUID D5 1/2NS AT 75ML/HR VIA PICC LIE, ON P200 BED, KEPT SZ AND FLL PRECAUTION, MADE LOWER BED POSITION, ON BED ALARM AND LOCKED, PROVIDED CALL LIGHT WITHIN REACH BUT UNABLE TO USE STATUS, WILL CONTINUE TO MONITOR.
--- NOTE | 2019-03-13 20:57 | NUR ---
NURSE NOTES: PT'S DAUGHTER STAYED AT BEDSIDE. PATIENT OPEN EYES, VSS, WILL CONTINUE TO MONITOR.
--- NOTE | 2019-03-13 22:31 | NUR ---
NURSE NOTES: PT'S DAUGHTER LEFT. PATIENT CALM, ASLEEP STATUS, WILL CONTINUE PLAN OF CARE.
[2019-03-14] VITALS (26 sets, daily range): BP systolic 107–190; BP diastolic 47–113
--- NOTE | 2019-03-14 00:11 | NUR ---
NURSE NOTES: REPOSITIONED, SUCTIONED AND ORAL CARE WAS DONE, NO PAIN OR SOB NOTED AT THIS TIME.
--- NOTE | 2019-03-14 01:00 | Progress Note ---
DATE: 03/13/2019 SUBJECTIVE: Now with episodes of low blood pressure. Remains on trach collar. Multiple electrolyte abnormalities noted. OBJECTIVE: VITAL SIGNS: Blood pressure 95/42 to 121/49, heart rate 70s, respiratory rate 20, and she is afebrile. Thin trach secretions. LUNGS: Bilateral rhonchi. CARDIAC: Regular rhythm and rate. Normal S1 and S2. ABDOMEN: Soft. G-tube intact. EXTREMITIES: Trace edema. IMPRESSION: Remains tenuous, respiratory failure electrolyte abnormality, chronic diastolic congestive heart failure, and history of hypertension now with low range of blood pressure ____ suggestive of no infection. PLAN: 1. Antimicrobials. 2. Respiratory hygiene. 3. Off beta blockers. 4. Recheck lab studies. 5. Nutrition by feeding tube. 6. Volume support as needed. Bg Hagen M.D. DR: CHARLEE JOB#: [id number] CC:
[2019-03-14] MEDS: Metoclopramide 10mg/2ml Inj IVP SCH ×4 (01:47→19:32)
[2019-03-14] MEDS: D5 1/2NS 1,000 ML IV SCH ×2 (01:48→17:10)
--- NOTE | 2019-03-14 02:16 | NUR ---
NURSE NOTES: BP 166/62mmhg noted, given Apresoline 10mg by ivp as prn order for high bp, kept hob over 30 degrees, will continue to monitor.
[2019-03-14] MEDS: Albuterol/Ipratropium 3ml neb HHN SCH ×6 (03:50→23:00)
--- NOTE | 2019-03-14 03:50 | NUR ---
NURSE NOTES: MORNING CARE AND ORAL CARE WAS DONE, PATIENT RESISTANCE TO CARE.
--- NOTE | 2019-03-14 05:08 | NUR ---
NURSE NOTES: HELD FEEDING STATUS DUE TO G TUBE SITE LEAKED, WILL CONTINUE TO MONITOR.
[2019-03-14 05:57] LABS: BASOPHILS % (AUTO) 0.4 % (0.0-2.0); EOSINOPHILS % (AUTO) 4.7 % (0.0-3.0); HEMATOCRIT 32.8 % (37.0-47.0); HEMOGLOBIN 10.3 G/DL (12.0-16.0); LYMPHOCYTES % (AUTO) 44.2 % (20.0-45.0); MEAN CORPUSCULAR VOLUME 86 FL (80-99); MONOCYTES % (AUTO) 4.7 % (1.0-10.0); NEUTROPHILS % (AUTO) 46.1 % (45.0-75.0); PLATELET COUNT 202 K/UL (150-450); RED BLOOD COUNT 3.81 M/UL (4.20-5.40); RED CELL DISTRIBUTION WIDTH 16.3 % (11.6-14.8); WHITE BLOOD COUNT 9.5 K/UL (4.8-10.8)
[2019-03-14 06:11] LABS: ALANINE AMINOTRANSFERASE 57 U/L (12-78); ALBUMIN/GLOBULIN RATIO 0.5 (1.0-2.7); ALKALINE PHOSPHATASE 136 U/L (46-116); ANION GAP 9 mmol/L (5-15); ASPARTATE AMINO TRANSFERASE 41 U/L (15-37); BILIRUBIN,TOTAL 0.2 MG/DL (0.2-1.0); BLOOD UREA NITROGEN 6 mg/dL (7-18); CALCIUM 9.2 MG/DL (8.5-10.1); CARBON DIOXIDE 24 MMOL/L (21-32); CHLORIDE 108 MMOL/L (98-107); CREATININE 1.1 MG/DL (0.55-1.30); PHOSPHORUS 2.8 MG/DL (2.5-4.9); POTASSIUM 4.7 MMOL/L (3.5-5.1); SODIUM 141 MMOL/L (136-145)
--- NOTE | 2019-03-14 06:35 | NUR ---
NURSE NOTES: PATIENT AGITATED, HR 110-120'S/MIN TACHYCARDIA NOTED THIS MORNING, SUCTIONED, ORAL CARE WAS DONE THAT WHITISH THICK DISCHARGE OUTED VIA TRACH, WILL CONTINUE TO MONITOR.
--- NOTE | 2019-03-14 07:05 | NUR ---
NURSE NOTES: NOTED QUESADA AND COFFEE GROUND COLOR DISCHARGE OUTED VIA TRACH AT THIS TIME. SEEN THE PATIENT BY DR. SNOWDEN THAT INFORMED MD REGARDING G TUBE SITE LEAKED AND HELD FEEDING STATUS.
--- NOTE | 2019-03-14 07:23 | General Progress Note ---
Assessment/Plan Status: stable, progressing Assessment/Plan: Assessment - N/V, periodic, including suctioning of feeds from mouth - suspect due to gastroparesis, possibly also from suctioning reflex - DTR declines GJ conversion. - - will Rx with reglan, short term - suction gently - Elevated Alk phos / LFT - CT negative - abd U/S negative - check hepatitis serologies - negative - Anemia with OB (-) stools - Resp failure, s/p Trach - dysphagia, s/p PEG --> s/p GT change - OBS - minor GT tract inflammation / infection - poor Px Recommendations - laxative PRN - antibiotic ointment to GT site PRN - aspiration precautions - elevate HOB - PPI -GTF on hold, will resume tomorrow Subjective ROS Limited/Unobtainable: No Allergies: Coded Allergies: CODEINE (Verified Allergy, Unknown, HIVES, 09/15/09) Objective Last 24 Hour Vital Signs Date Time Temp Pulse Resp B/P (MAP) Pulse Ox O2 Delivery O2 Flow Rate FiO2 03/14/19 07:10 100 T-Piece 6.0 28 03/14/19 07:09 110 24 100 T-Piece 6.0 28 109 24 100 03/14/19 07:03 127 27 190/71 (110) 100 03/14/19 07:00 111 19 100 03/14/19 06:28 111 27 161/66 (97) 100 03/14/19 06:23 123 21 169/69 (102) 100 03/14/19 06:00 132 19 185/79 (114) 99 03/14/19 05:00 112 19 147/113 (124) 97 03/14/19 04:00 T-piece 6.0 03/14/19 04:00 6.0 28 03/14/19 04:00 98.4 98 23 136/104 (115) 100 03/14/19 03:51 100 T-Piece 6.0 28 03/14/19 03:50 104 21 100 T-Piece 6.0 28 101 24 100 03/14/19 03:43 103 03/14/19 03:00 106 24 132/54 (80) 99 03/14/19 02:16 166/62 03/14/19 02:00 116 18 166/62 (96) 100 03/14/19 01:00 86 23 159/51 (87) 100 03/14/19 00:00 6.0 28 03/14/19 00:00 T-piece 6.0 03/14/19 00:00 98.3 98 25 140/57 (84) 99 03/13/19 23:18 111 03/13/19 23:13 102 19 100 T-Piece 6.0 28 103 18 98 03/13/19 23:00 82 22 168/74 (105) 100 03/13/19 22:46 91 13 100 T-Piece 6.0 28 93 14 100 03/13/19 22:11 89 20 149/70 (96) 100 03/13/19 22:00 111 23 163/71 (101) 99 03/13/19 21:00 93 22 137/53 (81) 99 03/13/19 20:00 T-piece 6.0 03/13/19 20:00 98.2 84 21 110/50 (70) 100 03/13/19 20:00 6.0 28 03/13/19 19:29 98 T-Piece 6.0 28 03/13/19 19:27 89 18 100 T-Piece 6.0 28 87 18 98 03/13/19 19:23 88 03/13/19 19:00 107 26 155/65 (95) 97 03/13/19 18:00 112 17 138/51 (80) 97 03/13/19 17:00 104 17 138/51 (80) 98 03/13/19 16:00 6.0 28 03/13/19 16:00 T-piece 6.0 03/13/19 16:00 98.3 90 22 153/61 (91) 100 03/13/19 16:00 85 03/13/19 15:00 78 23 148/66 (93) 100 03/13/19 14:35 78 18 100 T-Piece 6.0 28 76 18 100 03/13/19 14:00 72 22 142/54 (83) 98 03/13/19 13:00 74 23 97/40 (59) 98 03/13/19 12:23 100 T-Piece 6.0 28 03/13/19 12:00 T-piece 6.0 03/13/19 12:00 78 03/13/19 12:00 6.0 28 12/13/19 12:00 98.2 77 24 95/42 (59) 98 03/13/19 11:00 86 22 121/49 (73) 100 03/13/19 10:40 78 18 100 T-Piece 6.0 28 74 18 99 03/13/19 10:30 80 22 100 T-Piece 6.0 28 78 20 100 03/13/19 10:00 89 25 132/57 (82) 100 03/13/19 09:00 81 22 107/31 (56) 96 03/13/19 08:00 6.0 28 03/13/19 08:00 98.3 90 27 111/40 (63) 96 03/13/19 08:00 T-piece 6.0 03/13/19 08:00 88 Intake and Output 03/13/19 03/14/19 19:00 07:00 Intake Total 1070 ml 1000 ml Output Total 480 ml 630 ml Balance 590 ml 370 ml Free Water 30 ml IV Total 900 ml 825 ml Tube Feeding 50 ml 175 ml Other 90 ml Output Urine Total 480 ml 630 ml # Voids 1 # Bowel Movements 2 Laboratory Tests 03/14/19 05:03: White Blood Count 9.5, Red Blood Count 3.81L, Hemoglobin 10.3L, Hematocrit 32.8L , Mean Corpuscular Volume 86, Mean Corpuscular Hemoglobin 26.9L, Mean Corpuscular Hemoglobin Concent 31.3L, Red Cell Distribution Width 16.3H, Platelet Count 202, Mean Platelet Volume 5.8L, Neutrophils (%) (Auto) 46.1, Lymphocytes (%) (Auto) 44.2, Monocytes (%) (Auto) 4.7, Eosinophils (%) (Auto) 4.7H, Basophils (%) (Auto) 0.4, Sodium Level 141, Potassium Level 4.7, Chloride Level 108H, Carbon Dioxide Level 24, Anion Gap 9, Blood Urea Nitrogen 6L, Creatinine 1.1, Estimat Glomerular Filtration Rate , Glucose Level 99, Calcium Level 9.2, Phosphorus Level 2.8, Magnesium Level 2.0, Total Bilirubin 0.2, Aspartate Amino Transf (AST/SGOT) 41H, Alanine Aminotransferase (ALT/SGPT) 57, Alkaline Phosphatase 136H, Total Protein 8.7H, Albumin 3.0L, Globulin 5.7, Albumin/Globulin Ratio 0.5L Height (Feet): 5 Height (Inches): 5.00 Weight (Pounds): 123 General Appearance: lethargic EENT: normal ENT inspection Neck: supple Cardiovascular: tachycardia Respiratory/Chest: decreased breath sounds Abdomen: normal bowel sounds, non tender, soft Extremities: non-tender Gary Guzman MD Mar 14, 2019 07:23
--- NOTE | 2019-03-14 07:28 | NUR ---
HAND-OFF: Report given to JEANNINE BARNETT.
--- NOTE | 2019-03-14 07:30 | NUR ---
NURSE NOTES: LATE ENTRY: RECEIVED REPORT FROM Rachel AHUJA PT IN BED. VS: HR 112, BP 145/57, SP02 96, RR 23. PT NO S/S OF DISTRESS. NON VERBAL, OPENS EYES SPONTANEOUSLY, PUPILS 3MM, SLUGGISH. MODERATE AMOUNT OF FROTHY WHITE TO QUESADA COLORED SECRETIONS. PT REQUIRES FREQUENT SUCTIONING. PT HAS WEAK COUGH. LUNG SOUNDS ON AUSCULTATION, RHONCHI BILATERAL, LT GREATER THEN RIGHT. PUREWICK IN PLACE, DRAINING YELLOW URINE. ABDOMEN ROUND, FIRM ON LOWER QUADRANTS. G-TUBE IN PLACE. TUBE FEED HELD DUE TO VOMITING. ASPIRATION PRECAUTIONS, HOB40. NO BM AT THIS TIME. BILATERAL RADIAL AND PEDAL PULSES WEAK. CONTRACTED UPPER EXTREMITIES, FLACCID LOWER. CAP REFILL <3 SEC. SKIN-SEE ASSESSMENT. CONTACT AND SZ PRECAUTIONS IN PLACE. EDUCATION ON PLAN OF CARE TODAY AND SIDE EFFECTS OF MEDICATION. WILL CONTINUE TO MONITOR PT.
--- NOTE | 2019-03-14 08:24 | NUR ---
NURSE NOTES: MD CABA HERE TO SEE PT. INFORMED OF TRACH SECRETIONS COFFEE GROUND IN COLOR, ORAL SECRETIONS WHITE. TUBE FEED HOLDING FOR SEVERAL HOURS. RECOMMENDED CXR. MD WILL PLACE ORDER FO CXR.
--- NOTE | 2019-03-14 08:45 | General Progress Note ---
Assessment/Plan Problem List: (1) Seizure ICD Codes: R56.9 - Unspecified convulsions SNOMED: 93944419 (2) Anemia ICD Codes: D64.9 - Anemia, unspecified SNOMED: 691860183 Qualifiers: Qualified Codes: D64.9 - Anemia, unspecified (3) Sepsis ICD Codes: A41.9 - Sepsis, unspecified organism SNOMED: 02145196, 277144897 Qualifiers: Qualified Codes: A41.9 - Sepsis, unspecified organism (4) Respiratory failure with hypoxia ICD Codes: J96.91 - Respiratory failure, unspecified with hypoxia SNOMED: 58293096247005215 Qualifiers: Qualified Codes: J96.21 - Acute and chronic respiratory failure with hypoxia (5) HCAP (healthcare-associated pneumonia) ICD Codes: J18.9 - Pneumonia, unspecified organism SNOMED: 071551907, 929198268 (6) Sacral decubitus ulcer ICD Codes: L89.159 - Pressure ulcer of sacral region, unspecified stage SNOMED: 675216478 (7) HTN (hypertension) ICD Codes: I10 - Essential (primary) hypertension SNOMED: 17947787 (8) Chronic vegetative state ICD Codes: R40.3 - Persistent vegetative state SNOMED: 43839849 (9) Chronic respiratory failure ICD Codes: J96.10 - Chronic respiratory failure, unspecified whether with hypoxia or hypercapnia SNOMED: 38868725 (10) Limited mobility ICD Codes: Z74.09 - Other reduced mobility SNOMED: 4128807 Status: stable, progressing Assessment/Plan: vent prn as needed resp rx suctioning as needed gt feeds with caution/as tolerated bowel regime monitor residuals sx rx monitor bp monitor cbc monitor for bleeding replace lytes cxr Subjective ROS Limited/Unobtainable: No Constitutional: Reports: malaise, weakness HEENT: Reports: no symptoms Cardiovascular: Reports: no symptoms Respiratory: Reports: cough, shortness of breath Gastrointestinal/Abdominal: Reports: difficulty swallowing Genitourinary: Reports: no symptoms Neurologic/Psychiatric: Reports: pre-existing deficit, seizure Endocrine: Reports: no symptoms Hematologic/Lymphatic: Reports: no symptoms Allergies: Coded Allergies: CODEINE (Verified Allergy, Unknown, HIVES, 09/15/09) All Systems: reviewed and negative except above Subjective still not tolerating feeds. increased congestion. coffee ground emesis? h/h stable. feeds on hold. pt getting ivf. Dtr declined J tube conversion in the past. labs reviewed Objective Last 24 Hour Vital Signs Date Time Temp Pulse Resp B/P (MAP) Pulse Ox O2 Delivery O2 Flow Rate FiO2 03/14/19 08:00 6.0 28 03/14/19 08:00 108 24 145/57 (86) 98 03/14/19 07:10 100 T-Piece 6.0 28 03/14/19 07:09 110 24 100 T-Piece 6.0 28 109 24 100 03/14/19 07:03 127 27 190/71 (110) 100 03/14/19 07:00 111 19 100 03/14/19 06:28 111 27 161/66 (97) 100 03/14/19 06:23 123 21 169/69 (102) 100 03/14/19 06:00 132 19 185/79 (114) 99 03/14/19 05:00 112 19 147/113 (124) 97 03/14/19 04:00 T-piece 6.0 03/14/19 04:00 6.0 28 03/14/19 04:00 98.4 98 23 136/104 (115) 100 03/14/19 03:51 100 T-Piece 6.0 28 03/14/19 03:50 104 21 100 T-Piece 6.0 28 101 24 100 03/14/19 03:43 103 03/14/19 03:00 106 24 132/54 (80) 99 03/14/19 02:16 166/62 03/14/19 02:00 116 18 166/62 (96) 100 03/14/19 01:00 86 23 159/51 (87) 100 03/14/19 00:00 6.0 28 03/14/19 00:00 T-piece 6.0 03/14/19 00:00 98.3 98 25 140/57 (84) 99 03/13/19 23:18 111 03/13/19 23:13 102 19 100 T-Piece 6.0 28 103 18 98 03/13/19 23:00 82 22 168/74 (105) 100 03/13/19 22:46 91 13 100 T-Piece 6.0 28 93 14 100 03/13/19 22:11 89 20 149/70 (96) 100 03/13/19 22:00 111 23 163/71 (101) 99 03/13/19 21:00 93 22 137/53 (81) 99 03/13/19 20:00 T-piece 6.0 03/13/19 20:00 98.2 84 21 110/50 (70) 100 03/13/19 20:00 6.0 28 03/13/19 19:29 98 T-Piece 6.0 28 03/13/19 19:27 89 18 100 T-Piece 6.0 28 87 18 98 03/13/19 19:23 88 03/13/19 19:00 107 26 155/65 (95) 97 03/13/19 18:00 112 17 138/51 (80) 97 03/13/19 17:00 104 17 138/51 (80) 98 03/13/19 16:00 6.0 28 03/13/19 16:00 T-piece 6.0 03/13/19 16:00 98.3 90 22 153/61 (91) 100 03/13/19 16:00 85 03/13/19 15:00 78 23 148/66 (93) 100 03/13/19 14:35 78 18 100 T-Piece 6.0 28 76 18 100 03/13/19 14:00 72 22 142/54 (83) 98 03/13/19 13:00 74 23 97/40 (59) 98 03/13/19 12:23 100 T-Piece 6.0 28 03/13/19 12:00 T-piece 6.0 03/13/19 12:00 78 03/13/19 12:00 6.0 28 03/13/19 12:00 98.2 77 24 95/42 (59) 98 03/13/19 11:00 86 22 121/49 (73) 100 03/13/19 10:40 78 18 100 T-Piece 6.0 28 74 18 99 03/13/19 10:30 80 22 100 T-Piece 6.0 28 78 20 100 03/13/19 10:00 89 25 132/57 (82) 100 03/13/19 09:00 81 22 107/31 (56) 96 Intake and Output 03/13/19 03/14/19 19:00 07:00 Intake Total 1070 ml 1075 ml Output Total 480 ml 630 ml Balance 590 ml 445 ml Free Water 30 ml IV Total 900 ml 900 ml Tube Feeding 50 ml 175 ml Other 90 ml Output Urine Total 480 ml 630 ml # Voids 1 # Bowel Movements 2 Laboratory Tests 03/14/19 05:03: White Blood Count 9.5, Red Blood Count 3.81L, Hemoglobin 10.3L, Hematocrit 32.8L , Mean Corpuscular Volume 86, Mean Corpuscular Hemoglobin 26.9L, Mean Corpuscular Hemoglobin Concent 31.3L, Red Cell Distribution Width 16.3H, Platelet Count 202, Mean Platelet Volume 5.8L, Neutrophils (%) (Auto) 46.1, Lymphocytes (%) (Auto) 44.2, Monocytes (%) (Auto) 4.7, Eosinophils (%) (Auto) 4.7H, Basophils (%) (Auto) 0.4, Sodium Level 141, Potassium Level 4.7, Chloride Level 108H, Carbon Dioxide Level 24, Anion Gap 9, Blood Urea Nitrogen 6L, Creatinine 1.1, Estimat Glomerular Filtration Rate , Glucose Level 99, Calcium Level 9.2, Phosphorus Level 2.8, Magnesium Level 2.0, Total Bilirubin 0.2, Aspartate Amino Transf (AST/SGOT) 41H, Alanine Aminotransferase (ALT/SGPT) 57, Alkaline Phosphatase 136H, Total Protein 8.7H, Albumin 3.0L, Globulin 5.7, Albumin/Globulin Ratio 0.5L Height (Feet): 5 Height (Inches): 5.00 Weight (Pounds): 123 Objective General Appearance: WD/WN, confused. on trach collar Neck: supple Cardiovascular: normal rate, regular rhythm Respiratory/Chest: chest wall non-tender, rhonchi - bilaterally(minimal) Abdomen: normal bowel sounds, non tender, soft, no organomegaly Edema: no edema noted Arm (L), no edema noted Arm (R), no edema noted Leg (L), no edema noted Leg (R), no edema noted Pedal (L), no edema noted Pedal (R), no edema noted Generalized Neurologic: disoriented, unresponsive, aphasia Irvin Beltrán MD Mar 14, 2019 08:45
[2019-03-14] MEDS: Heparin 5000 units/ml inj SUBQ SCH ×2 (09:00→20:35)
[2019-03-14] MEDS: Amikacin for Inhalation 2ML INH SCH ×2 (10:00→21:14)
--- NOTE | 2019-03-14 10:00 | NUR ---
NURSE NOTES: PT REPOSITIONED, PT WT PER BED SCALE 68.2KG. PT SUCTIONED, ORAL CARE AND PARTIAL BATH GIVEN.
--- NOTE | 2019-03-14 10:03 | Infectious Diseases Prog Note ---
"Assessment/Plan Assessment/Plan antibiotics : inhaled amikacin A 1. klebsiella | providencia pneumonia 2. respiratory failure 3. hypertension 4. CVA 5. dementia 6. sacral decubitus ulcer 7. rectal VRE colonization P 1. continue inhaled amikacin 2 more days 2. will follow up cultures Subjective ROS Limited/Unobtainable: Yes Allergies: Coded Allergies: CODEINE (Verified Allergy, Unknown, HIVES, 09/15/09) Objective Vital Signs Last 24 Hour Vital Signs Date Time Temp Pulse Resp B/P (MAP) Pulse Ox O2 Delivery O2 Flow Rate FiO2 03/14/19 09:00 97 26 153/73 (99) 97 03/14/19 08:00 6.0 28 03/14/19 08:00 96 03/14/19 08:00 108 24 145/57 (86) 98 03/14/19 07:10 100 T-Piece 6.0 28 03/14/19 07:09 110 24 100 T-Piece 6.0 28 109 24 100 03/14/19 07:03 127 27 190/71 (110) 100 03/14/19 07:00 111 19 100 03/14/19 06:28 111 27 161/66 (97) 100 03/14/19 06:23 123 21 169/69 (102) 100 03/14/19 06:00 132 19 185/79 (114) 99 03/14/19 05:00 112 19 147/113 (124) 97 03/14/19 04:00 T-piece 6.0 03/14/19 04:00 6.0 28 03/14/19 04:00 98.4 98 23 136/104 (115) 100 03/14/19 03:51 100 T-Piece 6.0 28 03/14/19 03:50 104 21 100 T-Piece 6.0 28 101 24 100 03/14/19 03:43 103 03/14/19 03:00 106 24 132/54 (80) 99 03/14/19 02:16 166/62 03/14/19 02:00 116 18 166/62 (96) 100 03/14/19 01:00 86 23 159/51 (87) 100 03/14/19 00:00 6.0 28 03/14/19 00:00 T-piece 6.0 03/14/19 00:00 98.3 98 25 140/57 (84) 99 03/13/19 23:18 111 03/13/19 23:13 102 19 100 T-Piece 6.0 28 103 18 98 03/13/19 23:00 82 22 168/74 (105) 100 03/13/19 22:46 91 13 100 T-Piece 6.0 28 93 14 100 03/13/19 22:11 89 20 149/70 (96) 100 03/13/19 22:00 111 23 163/71 (101) 99 03/13/19 21:00 93 22 137/53 (81) 99 03/13/19 20:00 T-piece 6.0 03/13/19 20:00 98.2 84 21 110/50 (70) 100 03/13/19 20:00 6.0 28 03/13/19 19:29 98 T-Piece 6.0 28 03/13/19 19:27 89 18 100 T-Piece 6.0 28 87 18 98 03/13/19 19:23 88 03/13/19 19:00 107 26 155/65 (95) 97 03/13/19 18:00 112 17 138/51 (80) 97 03/13/19 17:00 104 17 138/51 (80) 98 03/13/19 16:00 6.0 28 03/13/19 16:00 T-piece 6.0 03/13/19 16:00 98.3 90 22 153/61 (91) 100 03/13/19 16:00 85 03/13/19 15:00 78 23 148/66 (93) 100 03/13/19 14:35 78 18 100 T-Piece 6.0 28 76 18 100 03/13/19 14:00 72 22 142/54 (83) 98 03/13/19 13:00 74 23 97/40 (59) 98 03/13/19 12:23 100 T-Piece 6.0 28 03/13/19 12:00 T-piece 6.0 03/13/19 12:00 78 03/13/19 12:00 6.0 28 03/13/19 12:00 98.2 77 24 95/42 (59) 98 03/13/19 11:00 86 22 121/49 (73) 100 03/13/19 10:40 78 18 100 T-Piece 6.0 28 74 18 99 03/13/19 10:30 80 22 100 T-Piece 6.0 28 78 20 100 Height (Feet): 5 Height (Inches): 5.00 Weight (Pounds): 123 HEENT: status post trach Respiratory/Chest: lungs clear Cardiovascular: normal rate, regular rhythm, no gallop/murmur Abdomen: soft, non tender, other - GT Extremities: no edema, other - right arm PICC Laboratory Tests Test 03/14/19 05:03 White Blood Count 9.5 K/UL (4.8-10.8) Red Blood Count 3.81 M/UL (4.20-5.40) L Hemoglobin 10.3 G/DL (12.0-16.0) L Hematocrit 32.8 % (37.0-47.0) L Mean Corpuscular Volume 86 FL (80-99) Mean Corpuscular Hemoglobin 26.9 PG (27.0-31.0) L Mean Corpuscular Hemoglobin Concent 31.3 G/DL (32.0-36.0) L Red Cell Distribution Width 16.3 % (11.6-14.8) H Platelet Count 202 K/UL (150-450) Mean Platelet Volume 5.8 FL (6.5-10.1) L Neutrophils (%) (Auto) 46.1 % (45.0-75.0) Lymphocytes (%) (Auto) 44.2 % (20.0-45.0) Monocytes (%) (Auto) 4.7 % (1.0-10.0) Eosinophils (%) (Auto) 4.7 % (0.0-3.0) H Basophils (%) (Auto) 0.4 % (0.0-2.0) Sodium Level 141 MMOL/L (136-145) Potassium Level 4.7 MMOL/L (3.5-5.1) Chloride Level 108 MMOL/L (98-107) H Carbon Dioxide Level 24 MMOL/L (21-32) Anion Gap 9 mmol/L (5-15) Blood Urea Nitrogen 6 mg/dL (7-18) L Creatinine 1.1 MG/DL (0.55-1.30) Estimat Glomerular Filtration Rate mL/min (>60) Glucose Level 99 MG/DL (74-106) Calcium Level 9.2 MG/DL (8.5-10.1) Phosphorus Level 2.8 MG/DL (2.5-4.9) Magnesium Level 2.0 MG/DL (1.8-2.4) Total Bilirubin 0.2 MG/DL (0.2-1.0) Aspartate Amino Transf (AST/SGOT) 41 U/L (15-37) H Alanine Aminotransferase (ALT/SGPT) 57 U/L (12-78) Alkaline Phosphatase 136 U/L (46-116) H Total Protein 8.7 G/DL (6.4-8.2) H Albumin 3.0 G/DL (3.4-5.0) L Globulin 5.7 g/dL Albumin/Globulin Ratio 0.5 (1.0-2.7) L Current Medications Medications (Trade) Dose Ordered Sig/Maicol Route PRN Reason Start Time Stop Time Status Last Admin Dose Admin Albuterol/ Ipratropium (Albuterol/ Ipratropium) 3 ml Q4HRT HHN 03/10/19 03:00 03/15/19 02:59 03/14/19 07:09 Amikacin Sulfate (Amikin) 500 mg Q12HR@10,22 INH 03/07/19 11:00 03/16/19 23:59 03/13/19 22:46 Atropine Sulfate (Atropine Opth Adriana) 2 drop TID SL 03/07/19 09:00 04/06/19 08:59 03/13/19 17:04 Bacitracin (Bacitracin 15gm tube) 1 applic THREE TIMES A DAY TOPIC 02/28/19 18:30 03/30/19 18:29 03/13/19 17:04 Chlorhexidine Gluconate (Cesilia-Hex 2%) 1 applic DAILY@2000 TOPIC 03/12/19 20:00 04/11/19 19:59 03/13/19 19:34 Dextrose/Sodium Chloride 1,000 ml @ 75 mls/hr [id number] IV 03/07/19 11:15 04/06/19 11:14 03/14/19 01:48 Famotidine (Pepcid) 20 mg BID GT 03/02/19 18:00 04/01/19 17:59 03/13/19 17:03 Heparin Sodium (Porcine) (Heparin 5000 units/ml) 5,000 units EVERY 12 HOURS SUBQ 02/18/19 09:00 03/16/19 23:14 03/13/19 20:36 Hydralazine HCl (Apresoline) 10 mg Q4H PRN IV For High Blood Pressure 03/12/19 09:00 04/11/19 08:59 03/14/19 02:16 Levetiracetam (Keppra) 750 mg Q12HR GT 02/18/19 09:00 03/16/19 23:29 03/13/19 20:35 Metoclopramide HCl (Reglan) 5 mg Q6H IVP 03/10/19 02:00 03/24/19 01:59 03/14/19 01:47 Potassium Chloride (K-Dur) 20 meq TWICE A DAY GT 03/12/19 09:00 04/11/19 08:59 03/13/19 17:03 Scopolamine (TransDerm Scop 1.5mg/72HR Patch) 1.5 mg Q72H TDERMAL 03/11/19 13:00 04/10/19 12:59 03/11/19 13:52 Geovany Yang MD Mar 14, 2019 10:03"
--- NOTE | 2019-03-14 10:27 | Pulmonology Progress Note ---
Assessment/Plan Assessment/Plan Impression: Sepsis syndrome Pneumonia VDRF, Trach, G tube, Hypertension, Cardiac disease, Dementia, Previous CVA, Seizure disorder, Respiratory failure with hypoxia Anemia, worsened ? gib Sacral ulcer renal cyst pulmonary congestion Plan respiratory care as is atropine as needed neb therapy as is inhaled amikacin bid off vent and monitor Oxygen low flow Monitor labs and protein levels aspiration precautions polymicrobial infection noted presently without fevers Patient is a DNR. No CPR. ICU care reviewed family refusing dc medications/laboratory data/nursing notes/ICU care reviewed in detail note reviewed and edited care discussed with RN and RT ICU time spent 40 minutes Subjective ROS Limited/Unobtainable: Yes Allergies: Coded Allergies: CODEINE (Verified Allergy, Unknown, HIVES, 09/15/09) Subjective respiratory care reviewed on atropine and nebs ICU care reviewed inhaled amikacin RT care reviewed findings reviewed and discussed Objective Last 24 Hour Vital Signs Date Time Temp Pulse Resp B/P (MAP) Pulse Ox O2 Delivery O2 Flow Rate FiO2 03/14/19 10:00 97 22 163/70 (101) 99 03/14/19 09:00 97 26 153/73 (99) 97 03/14/19 08:00 6.0 28 03/14/19 08:00 96 03/14/19 08:00 108 24 145/57 (86) 98 03/14/19 07:10 100 T-Piece 6.0 28 03/14/19 07:09 110 24 100 T-Piece 6.0 28 109 24 100 03/14/19 07:03 127 27 190/71 (110) 100 03/14/19 07:00 111 19 100 03/14/19 06:28 111 27 161/66 (97) 100 03/14/19 06:23 123 21 169/69 (102) 100 03/14/19 06:00 132 19 185/79 (114) 99 03/14/19 05:00 112 19 147/113 (124) 97 03/14/19 04:00 T-piece 6.0 03/14/19 04:00 6.0 28 03/14/19 04:00 98.4 98 23 136/104 (115) 100 03/14/19 03:51 100 T-Piece 6.0 28 03/14/19 03:50 104 21 100 T-Piece 6.0 28 101 24 100 03/14/19 03:43 103 03/14/19 03:00 106 24 132/54 (80) 99 03/14/19 02:16 166/62 03/14/19 02:00 116 18 166/62 (96) 100 03/14/19 01:00 86 23 159/51 (87) 100 03/14/19 00:00 6.0 28 03/14/19 00:00 T-piece 6.0 03/14/19 00:00 98.3 98 25 140/57 (84) 99 03/13/19 23:18 111 03/13/19 23:13 102 19 100 T-Piece 6.0 28 103 18 98 03/13/19 23:00 82 22 168/74 (105) 100 03/13/19 22:46 91 13 100 T-Piece 6.0 28 93 14 100 03/13/19 22:11 89 20 149/70 (96) 100 03/13/19 22:00 111 23 163/71 (101) 99 03/13/19 21:00 93 22 137/53 (81) 99 03/13/19 20:00 T-piece 6.0 03/13/19 20:00 98.2 84 21 110/50 (70) 100 03/13/19 20:00 6.0 28 03/13/19 19:29 98 T-Piece 6.0 28 03/13/19 19:27 89 18 100 T-Piece 6.0 28 87 18 98 03/13/19 19:23 88 03/13/19 19:00 107 26 155/65 (95) 97 03/13/19 18:00 112 17 138/51 (80) 97 03/13/19 17:00 104 17 138/51 (80) 98 03/13/19 16:00 6.0 28 03/13/19 16:00 T-piece 6.0 03/13/19 16:00 98.3 90 22 153/61 (91) 100 03/13/19 16:00 85 03/13/19 15:00 78 23 148/66 (93) 100 03/13/19 14:35 78 18 100 T-Piece 6.0 28 76 18 100 03/13/19 14:00 72 22 142/54 (83) 98 03/13/19 13:00 74 23 97/40 (59) 98 03/13/19 12:23 100 T-Piece 6.0 28 03/13/19 12:00 T-piece 6.0 03/13/19 12:00 78 03/13/19 12:00 6.0 28 03/13/19 12:00 98.2 77 24 95/42 (59) 98 03/13/19 11:00 86 22 121/49 (73) 100 03/13/19 10:40 78 18 100 T-Piece 6.0 28 74 18 99 03/13/19 10:30 80 22 100 T-Piece 6.0 28 78 20 100 Intake and Output 03/13/19 03/14/19 19:00 07:00 Intake Total 1070 ml 1075 ml Output Total 480 ml 630 ml Balance 590 ml 445 ml Free Water 30 ml IV Total 900 ml 900 ml Tube Feeding 50 ml 175 ml Other 90 ml Output Urine Total 480 ml 630 ml # Voids 1 # Bowel Movements 2 Objective WDWN NAD contracted off vent reduced breath sounds bilaterally with occ rhonchi [id number] without MRG NABS nontender no HSM no CC minimal edema nonfocal nonverbal trach and gt reviewed and edited Laboratory Tests 03/14/19 05:03: White Blood Count 9.5, Red Blood Count 3.81L, Hemoglobin 10.3L, Hematocrit 32.8L , Mean Corpuscular Volume 86, Mean Corpuscular Hemoglobin 26.9L, Mean Corpuscular Hemoglobin Concent 31.3L, Red Cell Distribution Width 16.3H, Platelet Count 202, Mean Platelet Volume 5.8L, Neutrophils (%) (Auto) 46.1, Lymphocytes (%) (Auto) 44.2, Monocytes (%) (Auto) 4.7, Eosinophils (%) (Auto) 4.7H, Basophils (%) (Auto) 0.4, Sodium Level 141, Potassium Level 4.7, Chloride Level 108H, Carbon Dioxide Level 24, Anion Gap 9, Blood Urea Nitrogen 6L, Creatinine 1.1, Estimat Glomerular Filtration Rate , Glucose Level 99, Calcium Level 9.2, Phosphorus Level 2.8, Magnesium Level 2.0, Total Bilirubin 0.2, Aspartate Amino Transf (AST/SGOT) 41H, Alanine Aminotransferase (ALT/SGPT) 57, Alkaline Phosphatase 136H, Total Protein 8.7H, Albumin 3.0L, Globulin 5.7, Albumin/Globulin Ratio 0.5L Current Medications Medications (Trade) Dose Ordered Sig/Maicol Route PRN Reason Start Time Stop Time Status Last Admin Dose Admin Albuterol/ Ipratropium (Albuterol/ Ipratropium) 3 ml Q4HRT HHN 03/10/19 03:00 03/15/19 02:59 03/14/19 07:09 Amikacin Sulfate (Amikin) 500 mg Q12HR@10,22 INH 03/07/19 11:00 03/16/19 23:59 03/13/19 22:46 Atropine Sulfate (Atropine Opth Adriana) 2 drop TID SL 03/07/19 09:00 04/06/19 08:59 03/13/19 17:04 Bacitracin (Bacitracin 15gm tube) 1 applic THREE TIMES A DAY TOPIC 02/28/19 18:30 03/30/19 18:29 03/13/19 17:04 Chlorhexidine Gluconate (Cesilia-Hex 2%) 1 applic DAILY@1999 TOPIC 03/12/19 20:00 04/11/19 19:59 03/13/19 19:34 Dextrose/Sodium Chloride 1,000 ml @ 75 mls/hr [id number] IV 03/07/19 11:15 04/06/19 11:14 03/14/19 01:48 Famotidine (Pepcid) 20 mg BID GT 03/02/19 18:00 04/01/19 17:59 03/13/19 17:03 Heparin Sodium (Porcine) (Heparin 5000 units/ml) 5,000 units EVERY 12 HOURS SUBQ 02/18/19 09:00 03/16/19 23:14 03/13/19 20:36 Hydralazine HCl (Apresoline) 10 mg Q4H PRN IV For High Blood Pressure 03/12/19 09:00 04/11/19 08:59 03/14/19 02:16 Levetiracetam (Keppra) 750 mg Q12HR GT 02/18/19 09:00 03/16/19 23:29 03/13/19 20:35 Metoclopramide HCl (Reglan) 5 mg Q6H IVP 03/10/19 02:00 03/24/19 01:59 03/14/19 01:47 Potassium Chloride (K-Dur) 20 meq TWICE A DAY GT 03/12/19 09:00 04/11/19 08:59 03/13/19 17:03 Scopolamine (TransDerm Scop 1.5mg/72HR Patch) 1.5 mg Q72H TDERMAL 03/11/19 13:00 04/10/19 12:59 03/11/19 13:52 Amaury Chan MD Mar 14, 2019 10:27
[2019-03-14] MEDS: levETIRAcetam 500mg/5ml Liquid GT SCH ×2 (10:41→20:35)
[2019-03-14] MEDS: Bacitracin Oint 15gm Tube TOPIC SCH ×3 (10:42→17:10)
--- NOTE | 2019-03-14 12:00 | NUR ---
NURSE NOTES: LATE ENTRY: PT COUGHING, SECRETIONS FROM MOUTH, SUCTION PROVIDED. VS: HR 97, BP 150/60, SP02 99, RR 25. OPENS EYES SPONTANEOUSLY, PUPILS 3MM, SLUGGISH. LUNG SOUNDS ON AUSCULTATION, RHONCHI BILATERAL, LT GREATER THEN RIGHT. PUREWICK IN PLACE, ABDOMEN ROUND, FIRM ON LOWER QUADRANTS. G-TUBE IN PLACE. TUBE FEED GLUCERNA 1.5 AT 25ML/HR . ASPIRATION PRECAUTIONS, HOB40. ONE BM, BROWN AND PASTY, MODERATE SIZE. BILATERAL RADIAL AND PEDAL PULSES WEAK. CONTRACTED UPPER EXTREMITIES, FLACCID LOWER. CAP REFILL <3 SEC. SKIN-SEE ASSESSMENT. CONTACT AND SZ PRECAUTIONS IN PLACE. WILL CONTINUE TO MONITOR PT.
--- NOTE | 2019-03-14 12:48 | Diagnostic Imaging Report ---
EXAM: XR Chest, 1 View CLINICAL HISTORY: COUGH TECHNIQUE: Frontal view of the chest. COMPARISON: Chest radiograph on 03/07/2019 FINDINGS: Hardware: Tracheostomy tube terminates in the region of the upper thoracic trachea. Lungs/pleura: Low lung volumes. Patchy opacities and left greater than right lungs. No pleural effusion or pneumothorax. Heart/mediastinum: Normal. No cardiomegaly. Soft tissues: Unremarkable. Bones: No acute fracture. Upper abdomen: Normal. IMPRESSION: Low lung volumes. Patchy opacities left greater than right lungs may represent atelectasis versus infectious/inflammatory process versus pulmonary edema.
[2019-03-14] MEDS ORDERED: D5 1/2NS 1000ml IV ONE ×4 (13:29→14:11)
[2019-03-14] MEDS ORDERED: NS 275ml ONE ×3 (13:29→14:11)
--- NOTE | 2019-03-14 13:50 | Nephrology Progress Note ---
Assessment/Plan Problem List: (1) Acute renal failure (ARF) Assessment: Cr stable (2) Chronic respiratory failure (3) Anemia (4) Sepsis Assessment Acute renal failure Respiratory failure - Trach Low Mag- Low k , Low Na Anemia UTI / Sepsis Proteinuria / HypoAlbuminemia high Trigs Sz decubs bed bound DNR Plan lab reviewed bolus Albumin as needed K and Mag and Phos supplement as needed Hydrate as needed Urine studies avoid Nephrotoxics mag K Phos supplements as needed monitor renal parameters Subjective ROS Limited/Unobtainable: No Constitutional: Reports: malaise Objective Objective Last 24 Hour Vital Signs Date Time Temp Pulse Resp B/P (MAP) Pulse Ox O2 Delivery O2 Flow Rate FiO2 03/14/19 13:30 100 T-Piece 6.0 28 03/14/19 11:30 96 22 100 T-Piece 6.0 28 92 23 100 03/14/19 11:00 96 25 168/66 (100) 100 03/14/19 10:30 109 23 100 T-Piece 6.0 28 108 23 98 03/14/19 10:00 97 22 163/70 (101) 99 03/14/19 09:00 97 26 153/73 (99) 97 03/14/19 08:00 6.0 28 03/14/19 08:00 96 03/14/19 08:00 108 24 145/57 (86) 98 03/14/19 07:10 100 T-Piece 6.0 28 03/14/19 07:09 110 24 100 T-Piece 6.0 28 109 24 100 03/14/19 07:03 127 27 190/71 (110) 100 03/14/19 07:00 111 19 100 03/14/19 06:28 111 27 161/66 (97) 100 03/14/19 06:23 123 21 169/69 (102) 100 03/14/19 06:00 132 19 185/79 (114) 99 03/14/19 05:00 112 19 147/113 (124) 97 03/14/19 04:00 T-piece 6.0 03/14/19 04:00 6.0 28 03/14/19 04:00 98.4 98 23 136/104 (115) 100 03/14/19 03:51 100 T-Piece 6.0 28 03/14/19 03:50 104 21 100 T-Piece 6.0 28 101 24 100 03/14/19 03:43 103 03/14/19 03:00 106 24 132/54 (80) 99 03/14/19 02:16 166/62 03/14/19 02:00 116 18 166/62 (96) 100 03/14/19 01:00 86 23 159/51 (87) 100 03/14/19 00:00 6.0 28 03/14/19 00:00 T-piece 6.0 03/14/19 00:00 98.3 98 25 140/57 (84) 99 03/13/19 23:18 111 03/13/19 23:13 102 19 100 T-Piece 6.0 28 103 18 98 03/13/19 23:00 82 22 168/74 (105) 100 03/13/19 22:46 91 13 100 T-Piece 6.0 28 93 14 100 03/13/19 22:11 89 20 149/70 (96) 100 03/13/19 22:00 111 23 163/71 (101) 99 03/13/19 21:00 93 22 137/53 (81) 99 03/13/19 20:00 T-piece 6.0 03/13/19 20:00 98.2 84 21 110/50 (70) 100 03/13/19 20:00 6.0 28 03/13/19 19:29 98 T-Piece 6.0 28 03/13/19 19:27 89 18 100 T-Piece 6.0 28 87 18 98 03/13/19 19:23 88 03/13/19 19:00 107 26 155/65 (95) 97 03/13/19 18:00 112 17 138/51 (80) 97 03/13/19 17:00 104 17 138/51 (80) 98 03/13/19 16:00 6.0 28 03/13/19 16:00 T-piece 6.0 03/13/19 16:00 98.3 90 22 153/61 (91) 100 03/13/19 16:00 85 03/13/19 15:00 78 23 148/66 (93) 100 03/13/19 14:35 78 18 100 T-Piece 6.0 28 76 18 100 03/13/19 14:00 72 22 142/54 (83) 98 Intake and Output 03/13/19 03/14/19 19:00 07:00 Intake Total 1070 ml 1075 ml Output Total 480 ml 630 ml Balance 590 ml 445 ml Free Water 30 ml IV Total 900 ml 900 ml Tube Feeding 50 ml 175 ml Other 90 ml Output Urine Total 480 ml 630 ml # Voids 1 # Bowel Movements 2 Laboratory Tests 03/14/19 05:03: White Blood Count 9.5, Red Blood Count 3.81L, Hemoglobin 10.3L, Hematocrit 32.8L , Mean Corpuscular Volume 86, Mean Corpuscular Hemoglobin 26.9L, Mean Corpuscular Hemoglobin Concent 31.3L, Red Cell Distribution Width 16.3H, Platelet Count 202, Mean Platelet Volume 5.8L, Neutrophils (%) (Auto) 46.1, Lymphocytes (%) (Auto) 44.2, Monocytes (%) (Auto) 4.7, Eosinophils (%) (Auto) 4.7H, Basophils (%) (Auto) 0.4, Sodium Level 141, Potassium Level 4.7, Chloride Level 108H, Carbon Dioxide Level 24, Anion Gap 9, Blood Urea Nitrogen 6L, Creatinine 1.1, Estimat Glomerular Filtration Rate , Glucose Level 99, Calcium Level 9.2, Phosphorus Level 2.8, Magnesium Level 2.0, Total Bilirubin 0.2, Aspartate Amino Transf (AST/SGOT) 41H, Alanine Aminotransferase (ALT/SGPT) 57, Alkaline Phosphatase 136H, Total Protein 8.7H, Albumin 3.0L, Globulin 5.7, Albumin/Globulin Ratio 0.5L Height (Feet): 5 Height (Inches): 5.00 Weight (Pounds): 123 General Appearance: no apparent distress EENT: other - trach to O2 Cardiovascular: tachycardia Abdomen: soft Objective no change Eric Cortez MD Mar 14, 2019 13:50
--- NOTE | 2019-03-14 13:54 | Surgery Progress Note ---
Surgery Progress Note Subjective Additional Comments patient with more and more secretions. congested labs stable requiring suctioning frequently Objective Last 24 Hour Vital Signs Date Time Temp Pulse Resp B/P (MAP) Pulse Ox O2 Delivery O2 Flow Rate FiO2 03/14/19 13:30 100 T-Piece 6.0 28 03/14/19 11:30 96 22 100 T-Piece 6.0 28 92 23 100 03/14/19 11:00 96 25 168/66 (100) 100 03/14/19 10:30 109 23 100 T-Piece 6.0 28 108 23 98 03/14/19 10:00 97 22 163/70 (101) 99 03/14/19 09:00 97 26 153/73 (99) 97 03/14/19 08:00 6.0 28 03/14/19 08:00 96 03/14/19 08:00 108 24 145/57 (86) 98 03/14/19 07:10 100 T-Piece 6.0 28 03/14/19 07:09 110 24 100 T-Piece 6.0 28 109 24 100 03/14/19 07:03 127 27 190/71 (110) 100 03/14/19 07:00 111 19 100 03/14/19 06:28 111 27 161/66 (97) 100 03/14/19 06:23 123 21 169/69 (102) 100 03/14/19 06:00 132 19 185/79 (114) 99 03/14/19 05:00 112 19 147/113 (124) 97 03/14/19 04:00 T-piece 6.0 03/14/19 04:00 6.0 28 03/14/19 04:00 98.4 98 23 136/104 (115) 100 03/14/19 03:51 100 T-Piece 6.0 28 03/14/19 03:50 104 21 100 T-Piece 6.0 28 101 24 100 03/14/19 03:43 103 03/14/19 03:00 106 24 132/54 (80) 99 03/14/19 02:16 166/62 03/14/19 02:00 116 18 166/62 (96) 100 03/14/19 01:00 86 23 159/51 (87) 100 03/14/19 00:00 6.0 28 03/14/19 00:00 T-piece 6.0 03/14/19 00:00 98.3 98 25 140/57 (84) 99 03/13/19 23:18 111 03/13/19 23:13 102 19 100 T-Piece 6.0 28 103 18 98 03/13/19 23:00 82 22 168/74 (105) 100 03/13/19 22:46 91 13 100 T-Piece 6.0 28 93 14 100 03/13/19 22:11 89 20 149/70 (96) 100 03/13/19 22:00 111 23 163/71 (101) 99 03/13/19 21:00 93 22 137/53 (81) 99 03/13/19 20:00 T-piece 6.0 03/13/19 20:00 98.2 84 21 110/50 (70) 100 03/13/19 20:00 6.0 28 03/13/19 19:29 98 T-Piece 6.0 28 03/13/19 19:27 89 18 100 T-Piece 6.0 28 87 18 98 03/13/19 19:23 88 03/13/19 19:00 107 26 155/65 (95) 97 03/13/19 18:00 112 17 138/51 (80) 97 03/13/19 17:00 104 17 138/51 (80) 98 03/13/19 16:00 6.0 28 03/13/19 16:00 T-piece 6.0 03/13/19 16:00 98.3 90 22 153/61 (91) 100 03/13/19 16:00 85 03/13/19 15:00 78 23 148/66 (93) 100 03/13/19 14:35 78 18 100 T-Piece 6.0 28 76 18 100 03/13/19 14:00 72 22 142/54 (83) 98 I&O Intake and Output 03/13/19 03/14/19 19:00 07:00 Intake Total 1070 ml 1075 ml Output Total 480 ml 630 ml Balance 590 ml 445 ml Free Water 30 ml IV Total 900 ml 900 ml Tube Feeding 50 ml 175 ml Other 90 ml Output Urine Total 480 ml 630 ml # Voids 1 # Bowel Movements 2 Dressing: other Wound: other Drains: other Cardiovascular: RSR Respiratory: decreased breath sounds, other Abdomen: soft, present bowel sounds, non-distended Extremities: no cyanosis, other Laboratory Tests Test 03/14/19 05:03 White Blood Count 9.5 K/UL (4.8-10.8) Red Blood Count 3.81 M/UL (4.20-5.40) L Hemoglobin 10.3 G/DL (12.0-16.0) L Hematocrit 32.8 % (37.0-47.0) L Mean Corpuscular Volume 86 FL (80-99) Mean Corpuscular Hemoglobin 26.9 PG (27.0-31.0) L Mean Corpuscular Hemoglobin Concent 31.3 G/DL (32.0-36.0) L Red Cell Distribution Width 16.3 % (11.6-14.8) H Platelet Count 202 K/UL (150-450) Mean Platelet Volume 5.8 FL (6.5-10.1) L Neutrophils (%) (Auto) 46.1 % (45.0-75.0) Lymphocytes (%) (Auto) 44.2 % (20.0-45.0) Monocytes (%) (Auto) 4.7 % (1.0-10.0) Eosinophils (%) (Auto) 4.7 % (0.0-3.0) H Basophils (%) (Auto) 0.4 % (0.0-2.0) Sodium Level 141 MMOL/L (136-145) Potassium Level 4.7 MMOL/L (3.5-5.1) Chloride Level 108 MMOL/L (98-107) H Carbon Dioxide Level 24 MMOL/L (21-32) Anion Gap 9 mmol/L (5-15) Blood Urea Nitrogen 6 mg/dL (7-18) L Creatinine 1.1 MG/DL (0.55-1.30) Estimat Glomerular Filtration Rate mL/min (>60) Glucose Level 99 MG/DL (74-106) Calcium Level 9.2 MG/DL (8.5-10.1) Phosphorus Level 2.8 MG/DL (2.5-4.9) Magnesium Level 2.0 MG/DL (1.8-2.4) Total Bilirubin 0.2 MG/DL (0.2-1.0) Aspartate Amino Transf (AST/SGOT) 41 U/L (15-37) H Alanine Aminotransferase (ALT/SGPT) 57 U/L (12-78) Alkaline Phosphatase 136 U/L (46-116) H Total Protein 8.7 G/DL (6.4-8.2) H Albumin 3.0 G/DL (3.4-5.0) L Globulin 5.7 g/dL Albumin/Globulin Ratio 0.5 (1.0-2.7) L Plan Problems: (1) Sacral decubitus ulcer Assessment & Plan: This is a 83-year-old female with multiple medical committees that is currently admitted for medical care and management and identified to have multiple wounds requiring care. On admission patient noted to have a resolved sacral decubitus ulcer. Has had prior care and is well-healed at this time. Will ensure it does not open up again. Patient has a right ischial decubitus ulcer that is resolved. Scar intact and well formed. Will monitor to ensure it does not open up again. Patient has a left ischial decubitus ulcer that can be identified to be stage IV with palpable bone that has been resolving as noted by the periwound tissue and scar but open area approximately 1 cm x 1.5 cm few millimeters deep to bone identified. Unsure if this is been to be completely healed prior and has since opened or if has been healing at this level. No foul odor no drainage was unsure local wound care until healed Bilateral heels soft without signs of injury Resolving pressure injury L ischium(L)1.8cm x (W)1cm.Scattered biofilm at base of wound. Edges flat and adherent with surrounding hyperpigmentation. No odor or exudate noted. Sacrum is pale pink with surrounding hyperpigmentation. Hyperpigmentation R ischium with small sheared area centrally.No areas of erythema or exudate noted. Both heels are soft but blanchable. Skin Assessed under collar of trach and no evidence of skin breakdown noted. All wound Tx. are effective and continued as ordered. Pt ahs an APM/Belén mattress overlay and is being repositioned per protocols and per tolerance.No new skin concerns noted. Full thickness pressure injury L Ischium with small amt biofilm (L)1.8cm x (W) 1cm. Surrounding pink hyperpigmentation. No odor or exudate noted. Omro hyperpigmentation from previous wound noted to sacrum. Pt also noted to have Cat 2 Skin Tear dorsal L hand, L 5th metatarsal extending into palm of hand. 80% skin flap in situ.Both heels are dry firm and blanchable. No other skin concerns noted. R ischial wound has resolved. Omro epithelial with surrounding hyperpigmentation. from historical wound. Full thickness pressure injury L ischium. Omro granulation at base of wound. Borders are macerated with Surrounding hyperpigmentation.Small amt non-odorous serous exudate noted.(L)0.7cm x (W)0.8cm. Skin hyperpigmentation from historical wound noted to Sacrum. Small sheared area noted to sacrococcygeal area.(L)0.4cm x (W)0.3cm.Small amt sanguineous exudate noted. Reabsorbed blister with semi-detached dry necrotic cap noted to web space of L thumb and L index fingers extending into palm of L hand. No odor or exudate noted. Skin assessed under tracheal collar and no erythema or evidence of Skin Breakdown noted. NO new skin concerns noted . Good hand hygiene provided to both hands. R hand contracted and fisted. Fingernails trimmed. Wound care provided along with Primary nurse. Wound Tx continued as ordered. New order obtained from to apply Betadine to wound L hand Daily. Tx done as ordered. L hand wrapped with kerlix weaving kerlix between fingers to separate fingers. Moisture Barrier applied to sacrum ,R ischium. Each site covered with Optifoam drsg. Both lower ext washed and moisturized. Cavilon Skin Barrier applied to both heels.Each heel covered with Optifoam drsgs. Pt positioned with pillows and both heels off-loaded with pillow. Tx.Plan: Apply Betadine to wound L hand. Cover with Gauze and wrap with Kerlix Daily and prn. Cleanse L ischial wound with Saline. Apply Therahoney. Apply Moisture Barrier periwound. Cover with Optifoam drsgevery 3 days and prn. Apply Moisture Barrier Paste to R ischium and Sacrum. Cover each area with Optifoam drsg. Change every 3 days and prn. Apply Cavilon Skin Barrier to both heels. Cover each heel with Optifoam drsg. Change every 7 days and prn. APM/BELÉN Mattress overlay. Reposition at least every 2hours or as tolerated. Off-load heels with pillow. Cleanse Blister Dorsal and palm of L hand with saline. Versatel One Silicone Contact Layer(Applied). Apply Silvasorb Gel. Wrap with Kerlix Gauze.Change every 7 days and prn. Apply Moisture Barrier to sacrum. Cover with Optifoam drsg. Change every 3 days and prn. Cleanse L ischial wound with saline. Apply Therahoney. Apply Moisture Barrier Paste periwound. Cover with Optifoam drsg. Change every 3 days and prn. Apply Cavilon Skin Barrier to both heels. Cover each heel with Optifoam drsg. Change every 7 days and prn. APM/BELÉN Mattress overlay. Reposition at least every 2hours or as tolerated. Off-load heels with pillow. Nutritional optimization We will monitor follow with recommendations cont with above upon d/c (2) Sepsis Assessment & Plan: IV abx as per ID trend labs improving wounds unlikely etiology likely respiratory imaging noted and okay abnormal lft's stable PICC on Abx in ICU for desaturation CXR with consolidation cont with frequent suctioning Evidence of left lower lobe pneumonia, also previously demonstrated Gastrostomy in good position Mild diastasis of the rectus abdominis musculature again demonstrated Retrosacral decubitus changes, better depicted on prior exam which included the pelvis Small hiatal hernia with evidence of trace gastroesophageal reflux Discussed with GI. Recommend GJ family still pending decision (3) Feeding by G-tube Assessment & Plan: DAILY ESTIMATED NEEDS: Needs based on Pulmonary, wounds, bedbound/ 60kg adj 25-28 kcals/kg [id number] total kcals 1.25-2 g protein/kg 75-120 g total protein 25-30 mL/kg 1158-2705 total fluid mLs NUTRITION DIAGNOSIS: * Swallowing difficulty R/T respiratory status as evidenced by pt on T-collar, now back the vent, PEG dep, TF changed to low rate at this time due to episodes of vomiting + residuals. * Increased kcal/prot needs R/T wound healing as evidenced by BL buttocks and sacral wound photos, refer to WC reynaldo. (CURRENT TF:Glucerna 1.5 @35ml) ENTERAL NUTRITION RECOMMENDATIONS: VITAL AF 1.2 @ 55ml/hr x 24 hrs to provide 1320ml, 1584kcal, 99g prot, 1060ml free water - Once medically appropriate to resume TF, rec to initiate elemental and carb control formula of Vital 1.2 for possible improved tolerance - Initiate VITAL 1.2 @ 25ml/hr x 6hrs, advance 10ml q 4-6 hrs as tolerated to goal rate - Flush per MD/ HOB over 30 degrees ADDITIONAL RECOMMENDATIONS: 1) Re-calibrated bedscale wt for accurate CBW 2) Wound healing: Add Cristian 1pkt BID w/ improved Tf tolerace + MVI x1 daily 3) Monitor lytes, replete as needed (low Mg, K) 4) Monitor NPO status, ability to resume TF. -> held on and off due to vomiting since 02/02 5) SSI prn resume tube feeds (4) Chronic vegetative state Assessment & Plan: incontinence of urine and stool. can soil dressings. nurses doing great job with monitoring and changing prn (5) Leukocytosis Walter Madera Mar 14, 2019 13:54
[2019-03-14] MEDS: TransDerm Scop 1.5mg/72HR Patch TDERMAL SCH (13:58)
[2019-03-14] MEDS ORDERED: Tubing IV Secondary IV ONE (14:04)
--- NOTE | 2019-03-14 14:30 | NUR ---
NURSE NOTES: LATE ENTRY: PT REPOSITIONED, SUCTIONED, ORAL CARE AND PARTIAL BATH GIVEN. PT IN NO DISTRESS. AFEBRILE, VSS.
--- NOTE | 2019-03-14 16:00 | NUR ---
NURSE NOTES: LATE ENTRY: PT CONTINUES TO COUGH, DEEP SUCTION PROVIDED BY R.T. VS: HR 84, BP 163/66, SP02 100, RR 21. OPENS EYES SPONTANEOUSLY, PUPILS 3MM, SLUGGISH. LUNG SOUNDS ON AUSCULTATION, RHONCHI BILATERAL PUREWICK CHANGED, ABDOMEN ROUND, FIRM ON LOWER QUADRANTS. G-TUBE IN PLACE. TUBE FEED GLUCERNA 1.5 AT 25ML/HR . ASPIRATION PRECAUTIONS, HOB40. ONE BM, BROWN AND PASTY, MODERATE SIZE. BILATERAL RADIAL AND PEDAL PULSES WEAK. CONTRACTED UPPER EXTREMITIES, FLACCID LOWER. CAP REFILL <3 SEC. SKIN-SEE ASSESSMENT. CONTACT AND SZ PRECAUTIONS IN PLACE. WILL CONTINUE TO MONITOR PT.
--- NOTE | 2019-03-14 19:29 | NUR ---
RESPIRATORY NOTE: Received pt on 28% Cool Aerosol via T-Piece. Pt trach-dependent w/ a cuffed, Shiley 6 XLT tube. Cuff currently deflated. Pt is awake/flat effect, responds to stimuli. B/S flory. rhonchi, sxn small to moderate amounts of thin/frothy, pale-yellow secretions. Vent on standby at bedside, plugged into red outlet. Ambubag at bedside. Pt resting comfortably, in no apparent distress at this time. Will continue to monitor pt.
[2019-03-14] MEDS: Dyna-Hex 2% Top Sol 2oz TOPIC SCH (19:32)
--- NOTE | 2019-03-14 19:56 | NUR ---
NURSE NOTES: PATIENT AWOKE, RESPONSE TO NAME, DID NOT FOLLOW COMMANDS, RESPIRATION REGULAR ON TRACH, FIO2 28% T- PIECE, O2 SATURATION 100% NOTED, ABDOMEN SOFT, NO BM STATUS, G TUBE INTACT, HELD FEEDING STATUS DUE TO G-TUBE SITE LEAKED, NO RESIDUE STATUS AND NO N/V NOTED, KEPT HOB 30 DEGREES AND ASPIRATION PRECAUTION, VOID WITH PURE WICK, YELLOW URINE OUTED, PICC LINE TO RIGHT UPPER ARM, INTACT AND PATENT, ONGOING IV FLUID D5 1/2NS AT 75ML/HR VIA PICC LINE, ON P200 BED, KEPT SZ AND FALL PRECAUTION, MADE LOWER BED POSITION, ON BED ALARM AND LOCKED, PROVIDED CALL LIGHT WITHIN REACH BUT UNABLE TO USE STATUS, WILL CONTINUE TO MONITOR.
--- NOTE | 2019-03-14 21:16 | NUR ---
NURSE NOTES: LE: GIVEN APRESOLINE 10MG BY IVP PRN ORDER FOR BP 166/64MMHG, KEPT HOB OVER 30 DEGREES.
--- NOTE | 2019-03-14 22:15 | NUR ---
NURSE NOTES: PT'S DAUGHTER STAYED AT BEDSIDE, INFORMED DAUGHTER REGARDING PT'S CONTACT ISOLATION STATUS, ENCOURAGED PPE AND HAND WASHING BEFORE LEAVING THAT DAUGHTER SAID, "I KNOW."
--- NOTE | 2019-03-14 23:57 | NUR ---
NURSE NOTES: PATIENT ASLEEP STATUS, NO COUGH SIGN NOTED, WILL CONTINUE PLAN OF CARE.
[2019-03-15] VITALS (24 sets, daily range): BP systolic 94–177; BP diastolic 39–115
[2019-03-15] MEDS: Metoclopramide 10mg/2ml Inj IVP SCH ×4 (01:30→20:07)
--- NOTE | 2019-03-15 02:14 | NUR ---
NURSE NOTES: NO PAIN OR DISTRESS NOTED AT THIS TIME.
[2019-03-15] MEDS: Albuterol/Ipratropium 3ml neb HHN SCH ×5 (02:59→19:25)
--- NOTE | 2019-03-15 03:03 | NUR ---
NURSE NOTES: SEEN THE PATIENT BY DR. VUONG, MADE NEW ORDER. WILL FOLLOW THE ORDER.
--- NOTE | 2019-03-15 03:30 | Progress Note ---
DATE: 03/14/2019 CARDIOLOGY PROGRESS NOTE SUBJECTIVE: Still with congestion. Some emesis. Not tolerating feedings. Remains on IV fluids. Developing now sinus tachycardia. OBJECTIVE: VITAL SIGNS: Blood pressure 145/57 to 169/69, heart rate 110 to 127, respiratory 19 to 27, and afebrile. LUNGS: Bilateral breath sounds. Rhonchi. HEART: Irregular rhythm. Rapid rate. Normal S1, S2. ABDOMEN: Distended, but soft. EXTREMITIES: A 1+ dependent edema. IMPRESSION: 1. Gastroparesis. 2. Possible ileus. 3. Secondary sinus tachycardia. 4. Possible component of rebound tachycardia off beta-martha which the patient's daughter insisted to discontinue. 5. Hypertension with hypertensive heart disease and increased blood pressure trend. 6. Chronic diastolic congestive heart failure. PLAN: 1. Bowel regimen. 2. IV fluids. 3. Consider clonidine patch. 4. Prognosis very poor. Bg Hagen M.D. DR: DAMEON JOB#: [id number] CC:
--- NOTE | 2019-03-15 04:10 | NUR ---
NURSE NOTES: MORNING CARE AND ORAL CARE WAS DONE, PATIENT RESISTANCE TO CARE.
[2019-03-15] MEDS: D5 1/2NS 1,000 ML IV SCH ×2 (05:53→19:21)
--- NOTE | 2019-03-15 06:39 | NUR ---
NURSE NOTES: NO LEAKED FROM G-TUBE SITE AT THIS TIME, NO PAIN OR DISTRESS NOTED AT THIS SHIFT.
[2019-03-15 07:04] LABS: BASOPHILS % (AUTO) 0.7 % (0.0-2.0); EOSINOPHILS % (AUTO) 5.6 % (0.0-3.0); HEMATOCRIT 30.9 % (37.0-47.0); HEMOGLOBIN 9.7 G/DL (12.0-16.0); LYMPHOCYTES % (AUTO) 33.8 % (20.0-45.0); MEAN CORPUSCULAR VOLUME 86 FL (80-99); MONOCYTES % (AUTO) 6.5 % (1.0-10.0); NEUTROPHILS % (AUTO) 53.4 % (45.0-75.0); PLATELET COUNT 201 K/UL (150-450); RED BLOOD COUNT 3.61 M/UL (4.20-5.40); RED CELL DISTRIBUTION WIDTH 15.9 % (11.6-14.8); WHITE BLOOD COUNT 8.2 K/UL (4.8-10.8)
[2019-03-15 07:07] LABS: ALANINE AMINOTRANSFERASE 41 U/L (12-78); ALBUMIN 2.9 G/DL (3.4-5.0); ALBUMIN/GLOBULIN RATIO 0.5 (1.0-2.7); ALKALINE PHOSPHATASE 116 U/L (46-116); ANION GAP 8 mmol/L (5-15); ASPARTATE AMINO TRANSFERASE 29 U/L (15-37); BILIRUBIN,TOTAL 0.3 MG/DL (0.2-1.0); BLOOD UREA NITROGEN 5 mg/dL (7-18); CALCIUM 9.5 MG/DL (8.5-10.1); CARBON DIOXIDE 27 MMOL/L (21-32); CHLORIDE 107 MMOL/L (98-107); CREATININE 0.9 MG/DL (0.55-1.30); POTASSIUM 3.9 MMOL/L (3.5-5.1); SODIUM 142 MMOL/L (136-145)
--- NOTE | 2019-03-15 07:14 | NUR ---
HAND-OFF: Report given to JEANNINE BARNETT.
--- NOTE | 2019-03-15 07:33 | NUR ---
NURSE NOTES: LATE ENTRY: RECEIVED REPORT FROM Rachel AHUJA PT IN BED. VS: HR 89, BP 144/59, SP02 100, RR 25. NON VERBAL, OPENS EYES SPONTANEOUSLY, DOES NOT FOLLOW COMMANDS. PUPILS 3MM, SLUGGISH. WHITE TO QUESADA COLORED SECRETIONS. PT REQUIRES FREQUENT SUCTIONING. PT HAS WEAK COUGH. LUNG SOUNDS ON AUSCULTATION, RHONCHI BILATERAL, LT GREATER THEN RIGHT. PUREWICK IN PLACE, DRAINING YELLOW URINE. ABDOMEN ROUND. G-TUBE IN PLACE. TUBE FEED HELD DUE TO VOMITING. NO BM AT THIS TIME. BILATERAL RADIAL AND PEDAL PULSES WEAK. CONTRACTED UPPER EXTREMITIES, FLACCID LOWER. CAP REFILL <3 SEC. SKIN-SEE ASSESSMENT. CONTACT AND SZ PRECAUTIONS IN PLACE. WILL CONTINUE TO MONITOR PT.
--- NOTE | 2019-03-15 07:57 | General Progress Note ---
Assessment/Plan Status: stable, progressing Assessment/Plan: Assessment - N/V, periodic, including suctioning of feeds from mouth - suspect due to gastroparesis, possibly also from suctioning reflex - DTR declines GJ conversion. - - will Rx with reglan, short term - suction gently - Elevated Alk phos / LFT - CT negative - abd U/S negative - check hepatitis serologies - negative - Anemia with OB (-) stools - Resp failure, s/p Trach - dysphagia, s/p PEG --> s/p GT change - OBS - minor GT tract inflammation / infection - poor Px Recommendations - laxative PRN - antibiotic ointment to GT site PRN - aspiration precautions - elevate HOB - PPI -GTF on hold, will resume tomorrow Subjective ROS Limited/Unobtainable: No Allergies: Coded Allergies: CODEINE (Verified Allergy, Unknown, HIVES, 09/15/09) Objective Last 24 Hour Vital Signs Date Time Temp Pulse Resp B/P (MAP) Pulse Ox O2 Delivery O2 Flow Rate FiO2 03/15/19 07:09 100 T-Piece 6.0 28 03/15/19 07:09 89 22 100 T-Piece 6.0 28 90 24 100 03/15/19 07:09 90 24 100 T-Piece 6.0 28 03/15/19 07:00 96 27 160/63 (95) 100 03/15/19 06:00 87 27 154/60 (91) 100 03/15/19 05:00 98.2 89 28 139/54 (82) 100 03/15/19 04:00 109 21 166/84 (111) 100 03/15/19 04:00 6.0 28 03/15/19 04:00 T-piece 6.0 03/15/19 03:09 100 22 100 T-Piece 6.0 28 03/15/19 03:09 89 03/15/19 03:00 87 21 157/70 (99) 100 03/15/19 02:59 103 17 100 T-Piece 6.0 28 03/15/19 02:00 83 26 144/61 (88) 100 03/15/19 01:03 100 T-Piece 6.0 28 03/15/19 01:00 93 20 144/64 (90) 100 03/15/19 00:00 T-piece 6.0 03/15/19 00:00 6.0 28 03/15/19 00:00 98.2 91 21 150/70 (96) 100 03/14/19 23:10 106 21 100 T-Piece 6.0 28 03/14/19 23:00 98 22 146/75 (98) 100 03/14/19 23:00 100 23 100 T-Piece 6.0 28 03/14/19 22:54 70 03/14/19 22:00 83 24 129/51 (77) 100 03/14/19 21:24 77 24 100 T-Piece 6.0 28 03/14/19 21:18 166/64 03/14/19 21:14 71 21 100 T-Piece 6.0 28 03/14/19 21:00 75 26 166/64 (98) 100 03/14/19 20:02 88 20 159/92 (114) 100 03/14/19 20:00 98.2 98 22 100 03/14/19 20:00 T-piece 6.0 03/14/19 20:00 6.0 28 03/14/19 19:39 93 03/14/19 19:35 99 23 100 T-Piece 6.0 28 03/14/19 19:25 97 20 100 T-Piece 6.0 28 03/14/19 19:25 100 T-Piece 6.0 28 03/14/19 19:00 79 25 154/66 (95) 100 03/14/19 18:00 85 26 156/88 (110) 96 03/14/19 17:00 78 19 107/47 (67) 96 03/14/19 16:00 6.0 28 03/14/19 16:00 88 03/14/19 16:00 98.5 88 23 163/66 (98) 100 03/14/19 16:00 T-piece 6.0 03/14/19 15:39 93 24 100 T-Piece 6.0 28 90 24 100 03/14/19 15:00 104 19 148/64 (92) 96 03/14/19 14:02 109 25 149/97 (114) 99 03/14/19 14:00 111 27 100 03/14/19 13:30 100 T-Piece 6.0 28 03/14/19 13:00 107 27 159/66 (97) 99 03/14/19 12:00 98.3 96 25 150/60 (90) 99 03/14/19 12:00 T-piece 6.0 03/14/19 12:00 6.0 28 03/14/19 12:00 81 03/14/19 11:30 96 22 100 T-Piece 6.0 28 92 23 100 03/14/19 11:00 96 25 168/66 (100) 100 03/14/19 10:30 109 23 100 T-Piece 6.0 28 108 23 98 03/14/19 10:00 97 22 163/70 (101) 99 03/14/19 09:00 97 26 153/73 (99) 97 03/14/19 08:00 96 03/14/19 08:00 6.0 28 03/14/19 08:00 T-piece 6.0 03/14/19 08:00 96 03/14/19 08:00 108 24 145/57 (86) 98 Intake and Output 03/14/19 03/15/19 19:00 07:00 Intake Total 800 ml 900 ml Output Total 530 ml 720 ml Balance 270 ml 180 ml IV Total 675 ml 900 ml Tube Feeding 125 ml 0 ml Output Urine Total 530 ml 720 ml # Bowel Movements 2 Laboratory Tests 03/15/19 05:37: White Blood Count 8.2, Red Blood Count 3.61L, Hemoglobin 9.7L, Hematocrit 30.9L , Mean Corpuscular Volume 86, Mean Corpuscular Hemoglobin 26.8L, Mean Corpuscular Hemoglobin Concent 31.3L, Red Cell Distribution Width 15.9H, Platelet Count 201, Mean Platelet Volume 6.0L, Neutrophils (%) (Auto) 53.4, Lymphocytes (%) (Auto) 33.8, Monocytes (%) (Auto) 6.5, Eosinophils (%) (Auto) 5.6H, Basophils (%) (Auto) 0.7, Sodium Level 142, Potassium Level 3.9, Chloride Level 107, Carbon Dioxide Level 27, Anion Gap 8, Blood Urea Nitrogen 5L, Creatinine 0.9, Estimat Glomerular Filtration Rate , Glucose Level 101, Calcium Level 9.5, Total Bilirubin 0.3, Aspartate Amino Transf (AST/SGOT) 29, Alanine Aminotransferase (ALT/SGPT) 41, Alkaline Phosphatase 116, Total Protein 8.3H, Albumin 2.9L, Globulin 5.4, Albumin/Globulin Ratio 0.5L Height (Feet): 5 Height (Inches): 5.00 Weight (Pounds): 114 General Appearance: lethargic EENT: normal ENT inspection Neck: supple Cardiovascular: normal rate Respiratory/Chest: decreased breath sounds Abdomen: normal bowel sounds, non tender, soft Extremities: non-tender Gary Guzman MD Mar 15, 2019 07:57
--- NOTE | 2019-03-15 08:00 | NUR ---
NURSE NOTES: MD SNOWDEN HERE TO SEE PT. RECEIVED ORDER TO RUN FEEDING SLOWER RATE 10ML/HR AND MONITOR G-TUBE SITE FOR LEAKAGE.
--- NOTE | 2019-03-15 08:24 | General Progress Note ---
Assessment/Plan Problem List: (1) Seizure ICD Codes: R56.9 - Unspecified convulsions SNOMED: 34250502 (2) Anemia ICD Codes: D64.9 - Anemia, unspecified SNOMED: 232432592 Qualifiers: Qualified Codes: D64.9 - Anemia, unspecified (3) Sepsis ICD Codes: A41.9 - Sepsis, unspecified organism SNOMED: 92362625, 857253101 Qualifiers: Qualified Codes: A41.9 - Sepsis, unspecified organism (4) Respiratory failure with hypoxia ICD Codes: J96.91 - Respiratory failure, unspecified with hypoxia SNOMED: 06422069656688488 Qualifiers: Qualified Codes: J96.21 - Acute and chronic respiratory failure with hypoxia (5) HCAP (healthcare-associated pneumonia) ICD Codes: J18.9 - Pneumonia, unspecified organism SNOMED: 569539475, 246779027 (6) Sacral decubitus ulcer ICD Codes: L89.159 - Pressure ulcer of sacral region, unspecified stage SNOMED: 371352535 (7) HTN (hypertension) ICD Codes: I10 - Essential (primary) hypertension SNOMED: 33702580 (8) Chronic vegetative state ICD Codes: R40.3 - Persistent vegetative state SNOMED: 41390131 (9) Chronic respiratory failure ICD Codes: J96.10 - Chronic respiratory failure, unspecified whether with hypoxia or hypercapnia SNOMED: 84271925 (10) Limited mobility ICD Codes: Z74.09 - Other reduced mobility SNOMED: 7075446 Status: stable, progressing Assessment/Plan: vent prn as needed resp rx suctioning as needed gt feeds with caution/as tolerated bowel regime monitor residuals sx rx monitor bp monitor cbc monitor for bleeding replace lytes cxr Subjective ROS Limited/Unobtainable: No Constitutional: Reports: malaise, weakness HEENT: Reports: no symptoms Cardiovascular: Reports: no symptoms Respiratory: Reports: cough, shortness of breath, sputum Gastrointestinal/Abdominal: Reports: difficulty swallowing Genitourinary: Reports: no symptoms Neurologic/Psychiatric: Reports: pre-existing deficit, seizure Endocrine: Reports: no symptoms Hematologic/Lymphatic: Reports: anemia Allergies: Coded Allergies: CODEINE (Verified Allergy, Unknown, HIVES, 09/15/09) All Systems: reviewed and negative except above Subjective still not tolerating feeds. less congestion. h/h stable. feeds on hold. pt getting ivf. Dtr declined J tube conversion in the past. labs reviewed Objective Last 24 Hour Vital Signs Date Time Temp Pulse Resp B/P (MAP) Pulse Ox O2 Delivery O2 Flow Rate FiO2 03/15/19 07:09 100 T-Piece 6.0 28 03/15/19 07:09 89 22 100 T-Piece 6.0 28 90 24 100 03/15/19 07:09 90 24 100 T-Piece 6.0 28 03/15/19 07:00 96 27 160/63 (95) 100 03/15/19 06:00 87 27 154/60 (91) 100 03/15/19 05:00 98.2 89 28 139/54 (82) 100 03/15/19 04:00 109 21 166/84 (111) 100 03/15/19 04:00 6.0 28 03/15/19 04:00 T-piece 6.0 03/15/19 03:09 100 22 100 T-Piece 6.0 28 03/15/19 03:09 89 03/15/19 03:00 87 21 157/70 (99) 100 03/15/19 02:59 103 17 100 T-Piece 6.0 03/15/19 02:00 83 26 144/61 (88) 100 03/15/19 01:03 100 T-Piece 6.0 03/15/19 01:00 93 20 144/64 (90) 100 03/15/19 00:00 T-piece 6.0 03/15/19 00:00 6.0 28 03/15/19 00:00 98.2 91 21 150/70 (96) 100 03/14/19 23:10 106 21 100 T-Piece 6.0 28 03/14/19 23:00 98 22 146/75 (98) 100 03/14/19 23:00 100 23 100 T-Piece 6.0 03/14/19 22:54 70 03/14/19 22:00 83 24 129/51 (77) 100 03/14/19 21:24 77 24 100 T-Piece 6.0 28 03/14/19 21:18 166/64 03/14/19 21:14 71 21 100 T-Piece 6.0 03/14/19 21:00 75 26 166/64 (98) 100 03/14/19 20:02 88 20 159/92 (114) 100 03/14/19 20:00 98.2 98 22 100 03/14/19 20:00 T-piece 6.0 03/14/19 20:00 6.0 28 03/14/19 19:39 93 03/14/19 19:35 99 23 100 T-Piece 6.0 28 03/14/19 19:25 97 20 100 T-Piece 6.0 28 03/14/19 19:25 100 T-Piece 6.0 28 03/14/19 19:00 79 25 154/66 (95) 100 03/14/19 18:00 85 26 156/88 (110) 96 03/14/19 17:00 78 19 107/47 (67) 96 03/14/19 16:00 6.0 28 03/14/19 16:00 88 03/14/19 16:00 98.5 88 23 163/66 (98) 100 03/14/19 16:00 T-piece 6.0 03/14/19 15:39 93 24 100 T-Piece 6.0 28 90 24 100 03/14/19 15:00 104 19 148/64 (92) 96 03/14/19 14:02 109 25 149/97 (114) 99 03/14/19 14:00 111 27 100 03/14/19 13:30 100 T-Piece 6.0 28 03/14/19 13:00 107 27 159/66 (97) 99 03/14/19 12:00 98.3 96 25 150/60 (90) 99 03/14/19 12:00 T-piece 6.0 03/14/19 12:00 6.0 28 03/14/19 12:00 81 03/14/19 11:30 96 22 100 T-Piece 6.0 28 92 23 100 03/14/19 11:00 96 25 168/66 (100) 100 03/14/19 10:30 109 23 100 T-Piece 6.0 28 108 23 98 03/14/19 10:00 97 22 163/70 (101) 99 03/14/19 09:00 97 26 153/73 (99) 97 Intake and Output 03/14/19 03/15/19 19:00 07:00 Intake Total 800 ml 900 ml Output Total 530 ml 720 ml Balance 270 ml 180 ml IV Total 675 ml 900 ml Tube Feeding 125 ml 0 ml Output Urine Total 530 ml 720 ml # Bowel Movements 2 Laboratory Tests 03/15/19 05:37: White Blood Count 8.2, Red Blood Count 3.61L, Hemoglobin 9.7L, Hematocrit 30.9L , Mean Corpuscular Volume 86, Mean Corpuscular Hemoglobin 26.8L, Mean Corpuscular Hemoglobin Concent 31.3L, Red Cell Distribution Width 15.9H, Platelet Count 201, Mean Platelet Volume 6.0L, Neutrophils (%) (Auto) 53.4, Lymphocytes (%) (Auto) 33.8, Monocytes (%) (Auto) 6.5, Eosinophils (%) (Auto) 5.6H, Basophils (%) (Auto) 0.7, Sodium Level 142, Potassium Level 3.9, Chloride Level 107, Carbon Dioxide Level 27, Anion Gap 8, Blood Urea Nitrogen 5L, Creatinine 0.9, Estimat Glomerular Filtration Rate , Glucose Level 101, Calcium Level 9.5, Total Bilirubin 0.3, Aspartate Amino Transf (AST/SGOT) 29, Alanine Aminotransferase (ALT/SGPT) 41, Alkaline Phosphatase 116, Total Protein 8.3H, Albumin 2.9L, Globulin 5.4, Albumin/Globulin Ratio 0.5L Height (Feet): 5 Height (Inches): 5.00 Weight (Pounds): 114 Objective General Appearance: WD/WN, confused. on trach collar Neck: supple Cardiovascular: normal rate, regular rhythm Respiratory/Chest: chest wall non-tender, rhonchi - bilaterally(minimal) Abdomen: normal bowel sounds, non tender, soft, no organomegaly Edema: no edema noted Arm (L), no edema noted Arm (R), no edema noted Leg (L), no edema noted Leg (R), no edema noted Pedal (L), no edema noted Pedal (R), no edema noted Generalized Neurologic: disoriented, unresponsive, aphasia Irvin Beltrán MD Mar 15, 2019 08:24
--- NOTE | 2019-03-15 09:04 | Nephrology Progress Note ---
Assessment/Plan Problem List: (1) Acute renal failure (ARF) Assessment: Cr stable (2) Chronic respiratory failure (3) Anemia (4) Sepsis Assessment Acute renal failure Respiratory failure - Trach Low Mag- Low k , Low Na Anemia UTI / Sepsis Proteinuria / HypoAlbuminemia high Trigs Sz decubs bed bound DNR Plan lab reviewed bolus Albumin as needed K and Mag and Phos supplement as needed Hydrate as needed Urine studies avoid Nephrotoxics mag K Phos supplements as needed monitor renal parameters Subjective ROS Limited/Unobtainable: Yes Objective Objective Last 24 Hour Vital Signs Date Time Temp Pulse Resp B/P (MAP) Pulse Ox O2 Delivery O2 Flow Rate FiO2 03/15/19 07:09 100 T-Piece 6.0 28 03/15/19 07:09 89 22 100 T-Piece 6.0 28 90 24 100 03/15/19 07:09 90 24 100 T-Piece 6.0 28 03/15/19 07:00 96 27 160/63 (95) 100 03/15/19 06:00 87 27 154/60 (91) 100 03/15/19 05:00 98.2 89 28 139/54 (82) 100 03/15/19 04:00 109 21 166/84 (111) 100 03/15/19 04:00 6.0 28 03/15/19 04:00 T-piece 6.0 03/15/19 03:09 100 22 100 T-Piece 6.0 28 03/15/19 03:09 89 03/15/19 03:00 87 21 157/70 (99) 100 03/15/19 02:59 103 17 100 T-Piece 6.0 03/15/19 02:00 83 26 144/61 (88) 100 03/15/19 01:03 100 T-Piece 6.0 28 03/15/19 01:00 93 20 144/64 (90) 100 03/15/19 00:00 T-piece 6.0 03/15/19 00:00 6.0 28 03/15/19 00:00 98.2 91 21 150/70 (96) 100 03/14/19 23:10 106 21 100 T-Piece 6.0 28 03/14/19 23:00 98 22 146/75 (98) 100 03/14/19 23:00 100 23 100 T-Piece 6.0 28 03/14/19 22:54 70 03/14/19 22:00 83 24 129/51 (77) 100 03/14/19 21:24 77 24 100 T-Piece 6.0 28 03/14/19 21:18 166/64 03/14/19 21:14 71 21 100 T-Piece 6.0 28 03/14/19 21:00 75 26 166/64 (98) 100 03/14/19 20:02 88 20 159/92 (114) 100 03/14/19 20:00 98.2 98 22 100 03/14/19 20:00 T-piece 6.0 03/14/19 20:00 6.0 28 03/14/19 19:39 93 03/14/19 19:35 99 23 100 T-Piece 6.0 28 03/14/19 19:25 97 20 100 T-Piece 6.0 28 03/14/19 19:25 100 T-Piece 6.0 28 03/14/19 19:00 79 25 154/66 (95) 100 03/14/19 18:00 85 26 156/88 (110) 96 03/14/19 17:00 78 19 107/47 (67) 96 03/14/19 16:00 6.0 28 03/14/19 16:00 88 03/14/19 16:00 98.5 88 23 163/66 (98) 100 03/14/19 16:00 T-piece 6.0 03/14/19 15:39 93 24 100 T-Piece 6.0 28 90 24 100 03/14/19 15:00 104 19 148/64 (92) 96 03/14/19 14:02 109 25 149/97 (114) 99 03/14/19 14:00 111 27 100 03/14/19 13:30 100 T-Piece 6.0 28 03/14/19 13:00 107 27 159/66 (97) 99 03/14/19 12:00 98.3 96 25 150/60 (90) 99 03/14/19 12:00 T-piece 6.0 03/14/19 12:00 6.0 28 03/14/19 12:00 81 03/14/19 11:30 96 22 100 T-Piece 6.0 28 92 23 100 03/14/19 11:00 96 25 168/66 (100) 100 12/14/19 10:30 109 23 100 T-Piece 6.0 28 108 23 98 03/14/19 10:00 97 22 163/70 (101) 99 Intake and Output 03/14/19 03/15/19 19:00 07:00 Intake Total 800 ml 900 ml Output Total 530 ml 720 ml Balance 270 ml 180 ml IV Total 675 ml 900 ml Tube Feeding 125 ml 0 ml Output Urine Total 530 ml 720 ml # Bowel Movements 2 Laboratory Tests 03/15/19 05:37: White Blood Count 8.2, Red Blood Count 3.61L, Hemoglobin 9.7L, Hematocrit 30.9L , Mean Corpuscular Volume 86, Mean Corpuscular Hemoglobin 26.8L, Mean Corpuscular Hemoglobin Concent 31.3L, Red Cell Distribution Width 15.9H, Platelet Count 201, Mean Platelet Volume 6.0L, Neutrophils (%) (Auto) 53.4, Lymphocytes (%) (Auto) 33.8, Monocytes (%) (Auto) 6.5, Eosinophils (%) (Auto) 5.6H, Basophils (%) (Auto) 0.7, Sodium Level 142, Potassium Level 3.9, Chloride Level 107, Carbon Dioxide Level 27, Anion Gap 8, Blood Urea Nitrogen 5L, Creatinine 0.9, Estimat Glomerular Filtration Rate , Glucose Level 101, Calcium Level 9.5, Total Bilirubin 0.3, Aspartate Amino Transf (AST/SGOT) 29, Alanine Aminotransferase (ALT/SGPT) 41, Alkaline Phosphatase 116, Total Protein 8.3H, Albumin 2.9L, Globulin 5.4, Albumin/Globulin Ratio 0.5L Height (Feet): 5 Height (Inches): 5.00 Weight (Pounds): 114 General Appearance: no apparent distress EENT: other - trach to O2 Respiratory/Chest: decreased breath sounds Abdomen: distended Objective no change Eric Cortez MD Mar 15, 2019 09:04
[2019-03-15] MEDS: levETIRAcetam 500mg/5ml Liquid GT SCH ×2 (09:38→20:07)
[2019-03-15] MEDS: Bacitracin Oint 15gm Tube TOPIC SCH ×3 (09:39→17:34)
[2019-03-15] MEDS: Heparin 5000 units/ml inj SUBQ SCH ×2 (09:40→20:09)
--- NOTE | 2019-03-15 10:00 | NUR ---
NURSE NOTES: CALLED PHARMACY REGARDING CATAPRES PATCH. WILL ADMINISTER WHEN AVAILABLE
[2019-03-15] MEDS: Amikacin for Inhalation 2ML INH SCH ×2 (10:33→21:40)
[2019-03-15] MEDS ORDERED: NS 275ml ONE (10:45)
--- NOTE | 2019-03-15 11:43 | Pulmonology Progress Note ---
Assessment/Plan Assessment/Plan Impression: Sepsis syndrome Pneumonia VDRF, Trach, G tube, Hypertension, Cardiac disease, Dementia, Previous CVA, Seizure disorder, Respiratory failure with hypoxia Anemia, worsened ? gib Sacral ulcer renal cyst pulmonary congestion Plan respiratory care as is atropine as needed neb therapy to continue; renew inhaled amikacin bid- dc soon off vent and monitor imaging stable Oxygen low flow Monitor labs and protein levels aspiration precautions polymicrobial infection noted Patient is a DNR. No CPR. ICU care reviewed family refusing dc medications/laboratory data/nursing notes/ICU care reviewed in detail note reviewed and edited care discussed with RN and RT ICU time spent 38 minutes Subjective ROS Limited/Unobtainable: Yes Allergies: Coded Allergies: CODEINE (Verified Allergy, Unknown, HIVES, 09/15/09) Subjective respiratory care noted on atropine and nebs- still requires suctioning ICU care reviewed inhaled amikacin RT care reviewed findings reviewed and discussed ; imaging noted Objective Last 24 Hour Vital Signs Date Time Temp Pulse Resp B/P (MAP) Pulse Ox O2 Delivery O2 Flow Rate FiO2 03/15/19 11:06 101/42 03/15/19 11:00 75 21 101/42 (61) 100 03/15/19 10:33 82 22 100 T-Piece 6.0 28 81 25 100 03/15/19 10:00 81 26 137/66 (89) 100 03/15/19 09:00 73 21 101/42 (61) 100 03/15/19 08:00 97.6 94 21 144/59 (87) 100 03/15/19 07:09 100 T-Piece 6.0 28 03/15/19 07:09 89 22 100 T-Piece 6.0 28 90 24 100 03/15/19 07:09 90 24 100 T-Piece 6.0 28 03/15/19 07:00 96 27 160/63 (95) 100 03/15/19 06:00 87 27 154/60 (91) 100 03/15/19 05:00 98.2 89 28 139/54 (82) 100 03/15/19 04:00 109 21 166/84 (111) 100 03/15/19 04:00 6.0 28 03/15/19 04:00 T-piece 6.0 03/15/19 03:09 100 22 100 T-Piece 6.0 28 03/15/19 03:09 89 03/15/19 03:00 87 21 157/70 (99) 100 03/15/19 02:59 103 17 100 T-Piece 6.0 28 03/15/19 02:00 83 26 144/61 (88) 100 03/15/19 01:03 100 T-Piece 6.0 28 03/15/19 01:00 93 20 144/64 (90) 100 03/15/19 00:00 T-piece 6.0 03/15/19 00:00 6.0 28 03/15/19 00:00 98.2 91 21 150/70 (96) 100 03/14/19 23:10 106 21 100 T-Piece 6.0 28 03/14/19 23:00 98 22 146/75 (98) 100 03/14/19 23:00 100 23 100 T-Piece 6.0 28 03/14/19 22:54 70 03/14/19 22:00 83 24 129/51 (77) 100 03/14/19 21:24 77 24 100 T-Piece 6.0 28 03/14/19 21:18 166/64 03/14/19 21:14 71 21 100 T-Piece 6.0 28 03/14/19 21:00 75 26 166/64 (98) 100 03/14/19 20:02 88 20 159/92 (114) 100 03/14/19 20:00 98.2 98 22 100 03/14/19 20:00 T-piece 6.0 03/14/19 20:00 6.0 28 03/14/19 19:39 93 03/14/19 19:35 99 23 100 T-Piece 6.0 03/14/19 19:25 97 20 100 T-Piece 6.0 28 03/14/19 19:25 100 T-Piece 6.0 28 03/14/19 19:00 79 25 154/66 (95) 100 03/14/19 18:00 85 26 156/88 (110) 96 03/14/19 17:00 78 19 107/47 (67) 96 03/14/19 16:00 6.0 28 03/14/19 16:00 88 03/14/19 16:00 98.5 88 23 163/66 (98) 100 03/14/19 16:00 T-piece 6.0 03/14/19 15:39 93 24 100 T-Piece 6.0 28 90 24 100 03/14/19 15:00 104 19 148/64 (92) 96 03/14/19 14:02 109 25 149/97 (114) 99 03/14/19 14:00 111 27 100 03/14/19 13:30 100 T-Piece 6.0 28 03/14/19 13:00 107 27 159/66 (97) 99 03/14/19 12:00 98.3 96 25 150/60 (90) 99 03/14/19 12:00 T-piece 6.0 03/14/19 12:00 6.0 28 03/14/19 12:00 81 Intake and Output 03/14/19 03/15/19 19:00 07:00 Intake Total 800 ml 900 ml Output Total 530 ml 720 ml Balance 270 ml 180 ml IV Total 675 ml 900 ml Tube Feeding 125 ml 0 ml Output Urine Total 530 ml 720 ml # Bowel Movements 2 Objective WDWN NAD contracted off vent reduced breath sounds bilaterally with occ rhonchi [id number] without MRG NABS nontender no HSM no CC minimal edema nonfocal nonverbal trach and gt reviewed and edited Laboratory Tests 03/15/19 05:37: White Blood Count 8.2, Red Blood Count 3.61L, Hemoglobin 9.7L, Hematocrit 30.9L , Mean Corpuscular Volume 86, Mean Corpuscular Hemoglobin 26.8L, Mean Corpuscular Hemoglobin Concent 31.3L, Red Cell Distribution Width 15.9H, Platelet Count 201, Mean Platelet Volume 6.0L, Neutrophils (%) (Auto) 53.4, Lymphocytes (%) (Auto) 33.8, Monocytes (%) (Auto) 6.5, Eosinophils (%) (Auto) 5.6H, Basophils (%) (Auto) 0.7, Sodium Level 142, Potassium Level 3.9, Chloride Level 107, Carbon Dioxide Level 27, Anion Gap 8, Blood Urea Nitrogen 5L, Creatinine 0.9, Estimat Glomerular Filtration Rate , Glucose Level 101, Calcium Level 9.5, Total Bilirubin 0.3, Aspartate Amino Transf (AST/SGOT) 29, Alanine Aminotransferase (ALT/SGPT) 41, Alkaline Phosphatase 116, Total Protein 8.3H, Albumin 2.9L, Globulin 5.4, Albumin/Globulin Ratio 0.5L Current Medications Medications (Trade) Dose Ordered Sig/Maicol Route PRN Reason Start Time Stop Time Status Last Admin Dose Admin Albuterol/ Ipratropium (Albuterol/ Ipratropium) 3 ml Q4HRT HHN 03/15/19 03:00 03/20/19 02:59 03/15/19 10:35 Amikacin Sulfate (Amikin) 500 mg Q12HR@10,22 INH 03/07/19 11:00 03/16/19 23:59 03/15/19 10:33 Atropine Sulfate (Atropine Opth Adriana) 2 drop TID SL 03/07/19 09:00 04/06/19 08:59 03/15/19 09:38 Bacitracin (Bacitracin 15gm tube) 1 applic THREE TIMES A DAY TOPIC 02/28/19 18:30 03/30/19 18:29 03/15/19 09:39 Chlorhexidine Gluconate (Cesilia-Hex 2%) 1 applic DAILY@1999 TOPIC 03/12/19 20:00 04/11/19 19:59 03/14/19 19:32 Clonidine HCl (Catapres TTS-1) 1 patch QWEEK TDERMAL 03/15/19 09:00 04/14/19 08:59 03/15/19 11:06 Dextrose/Sodium Chloride 1,000 ml @ 75 mls/hr [id number] IV 03/07/19 11:15 04/06/19 11:14 03/15/19 05:53 Famotidine (Pepcid) 20 mg BID GT 03/02/19 18:00 04/01/19 17:59 03/15/19 09:38 Heparin Sodium (Porcine) (Heparin 5000 units/ml) 5,000 units EVERY 12 HOURS SUBQ 02/18/19 09:00 03/16/19 23:14 03/15/19 09:40 Hydralazine HCl (Apresoline) 10 mg Q4H PRN IV For High Blood Pressure 03/12/19 09:00 04/11/19 08:59 03/14/19 21:18 Levetiracetam (Keppra) 750 mg Q12HR GT 02/18/19 09:00 03/16/19 23:29 03/15/19 09:38 Metoclopramide HCl (Reglan) 5 mg Q6H IVP 03/10/19 02:00 03/24/19 01:59 03/15/19 09:37 Potassium Chloride (K-Dur) 20 meq TWICE A DAY GT 03/12/19 09:00 04/11/19 08:59 03/15/19 09:37 Scopolamine (TransDerm Scop 1.5mg/72HR Patch) 1.5 mg Q72H TDERMAL 03/11/19 13:00 04/10/19 12:59 03/14/19 13:58 Amaury Chan MD Mar 15, 2019 11:43
--- NOTE | 2019-03-15 12:03 | NUR ---
NURSE NOTES: LATE ENTRY: PT CLEANED AND REPOSITIONED, ORAL CARE PROVIDED. PT AFEBRILE. VS: HR 77, BP 101/39, SP02 100, RR 20. NON VERBAL, OPENS EYES SPONTANEOUSLY, DOES NOT FOLLOW COMMANDS. PUPILS 3MM, SLUGGISH. SECRETIONS HAVE DECREASED IN AMOUNT. PT HAS WEAK COUGH. REPLACED PUREWICK, DRAINING YELLOW URINE. ABDOMEN ROUND. G-TUBE IN PLACE. TUBE FEED GLUCERNA 1.5 RUNNING AT 10ML/HR, NO LEAKING FROM G-TUBE SITE, NO RESIDUALS. ONE BM, SMALL, SOFT, BROWN. BILATERAL RADIAL AND PEDAL PULSES WEAK. CONTRACTED UPPER EXTREMITIES, FLACCID LOWER. SKIN-SEE ASSESSMENT. CONTACT AND SZ PRECAUTIONS IN PLACE. WILL CONTINUE TO MONITOR PT.
--- NOTE | 2019-03-15 14:00 | NUR ---
NURSE NOTES: ATROPINE DROPS ARE EFFECTIVE IN DECREASING SECRETIONS. PT COUGHING LESS. PT IN NO ACUTE DISTRESS. REPOSITIONED, UPPER AND LOWER EXTREMITIES ELEVATED ON PILLOWS. TOLERATING TUBE FEEDING, NO LEAKAGE OR VOMITING NOTED. BED LOCKED, IN LOW POSITION. HOB>30.
--- NOTE | 2019-03-15 15:08 | Surgery Progress Note ---
Surgery Progress Note Subjective Additional Comments no acute events seemingly comfortable Objective Last 24 Hour Vital Signs Date Time Temp Pulse Resp B/P (MAP) Pulse Ox O2 Delivery O2 Flow Rate FiO2 03/15/19 14:00 83 27 132/66 (88) 100 03/15/19 13:00 77 22 101/39 (59) 100 03/15/19 12:00 6.0 28 03/15/19 12:00 T-piece 6.0 03/15/19 12:00 98.3 80 23 94/39 (57) 100 03/15/19 11:06 101/42 03/15/19 11:00 75 21 101/42 (61) 100 03/15/19 10:45 86 21 100 T-Piece 6.0 28 83 22 100 03/15/19 10:33 82 22 100 T-Piece 6.0 28 81 25 100 03/15/19 10:00 81 26 137/66 (89) 100 03/15/19 09:00 73 21 101/42 (61) 100 03/15/19 08:00 T-piece 6.0 03/15/19 08:00 6.0 28 03/15/19 08:00 97.6 94 21 144/59 (87) 100 03/15/19 07:09 100 T-Piece 6.0 28 03/15/19 07:09 89 22 100 T-Piece 6.0 28 90 24 100 03/15/19 07:09 90 24 100 T-Piece 6.0 28 03/15/19 07:00 96 27 160/63 (95) 100 03/15/19 06:00 87 27 154/60 (91) 100 03/15/19 05:00 98.2 89 28 139/54 (82) 100 03/15/19 04:00 109 21 166/84 (111) 100 03/15/19 04:00 6.0 28 03/15/19 04:00 T-piece 6.0 03/15/19 03:09 100 22 100 T-Piece 6.0 28 03/15/19 03:09 89 03/15/19 03:00 87 21 157/70 (99) 100 03/15/19 02:59 103 17 100 T-Piece 6.0 28 03/15/19 02:00 83 26 144/61 (88) 100 03/15/19 01:03 100 T-Piece 6.0 28 03/15/19 01:00 93 20 144/64 (90) 100 03/15/19 00:00 T-piece 6.0 03/15/19 00:00 6.0 28 03/15/19 00:00 98.2 91 21 150/70 (96) 100 03/14/19 23:10 106 21 100 T-Piece 6.0 28 03/14/19 23:00 98 22 146/75 (98) 100 03/14/19 23:00 100 23 100 T-Piece 6.0 28 03/14/19 22:54 70 03/14/19 22:00 83 24 129/51 (77) 100 03/14/19 21:24 77 24 100 T-Piece 6.0 28 03/14/19 21:18 166/64 03/14/19 21:14 71 21 100 T-Piece 6.0 28 03/14/19 21:00 75 26 166/64 (98) 100 03/14/19 20:02 88 20 159/92 (114) 100 03/14/19 20:00 98.2 98 22 100 03/14/19 20:00 T-piece 6.0 03/14/19 20:00 6.0 28 03/14/19 19:39 93 03/14/19 19:35 99 23 100 T-Piece 6.0 28 03/14/19 19:25 97 20 100 T-Piece 6.0 28 03/14/19 19:25 100 T-Piece 6.0 28 03/14/19 19:00 79 25 154/66 (95) 100 03/14/19 18:00 85 26 156/88 (110) 96 03/14/19 17:00 78 19 107/47 (67) 96 03/14/19 16:00 6.0 28 03/14/19 16:00 88 03/14/19 16:00 98.5 88 23 163/66 (98) 100 03/14/19 16:00 T-piece 6.0 03/14/19 15:39 93 24 100 T-Piece 6.0 28 90 24 100 I&O Intake and Output 03/14/19 03/15/19 19:00 07:00 Intake Total 800 ml 900 ml Output Total 530 ml 720 ml Balance 270 ml 180 ml IV Total 675 ml 900 ml Tube Feeding 125 ml 0 ml Output Urine Total 530 ml 720 ml # Bowel Movements 2 Dressing: other Wound: other Drains: other Cardiovascular: RSR Respiratory: decreased breath sounds Abdomen: soft, present bowel sounds, non-distended Extremities: no cyanosis Laboratory Tests Test 03/15/19 05:37 White Blood Count 8.2 K/UL (4.8-10.8) Red Blood Count 3.61 M/UL (4.20-5.40) L Hemoglobin 9.7 G/DL (12.0-16.0) L Hematocrit 30.9 % (37.0-47.0) L Mean Corpuscular Volume 86 FL (80-99) Mean Corpuscular Hemoglobin 26.8 PG (27.0-31.0) L Mean Corpuscular Hemoglobin Concent 31.3 G/DL (32.0-36.0) L Red Cell Distribution Width 15.9 % (11.6-14.8) H Platelet Count 201 K/UL (150-450) Mean Platelet Volume 6.0 FL (6.5-10.1) L Neutrophils (%) (Auto) 53.4 % (45.0-75.0) Lymphocytes (%) (Auto) 33.8 % (20.0-45.0) Monocytes (%) (Auto) 6.5 % (1.0-10.0) Eosinophils (%) (Auto) 5.6 % (0.0-3.0) H Basophils (%) (Auto) 0.7 % (0.0-2.0) Sodium Level 142 MMOL/L (136-145) Potassium Level 3.9 MMOL/L (3.5-5.1) Chloride Level 107 MMOL/L (98-107) Carbon Dioxide Level 27 MMOL/L (21-32) Anion Gap 8 mmol/L (5-15) Blood Urea Nitrogen 5 mg/dL (7-18) L Creatinine 0.9 MG/DL (0.55-1.30) Estimat Glomerular Filtration Rate mL/min (>60) Glucose Level 101 MG/DL (74-106) Calcium Level 9.5 MG/DL (8.5-10.1) Total Bilirubin 0.3 MG/DL (0.2-1.0) Aspartate Amino Transf (AST/SGOT) 29 U/L (15-37) Alanine Aminotransferase (ALT/SGPT) 41 U/L (12-78) Alkaline Phosphatase 116 U/L (46-116) Total Protein 8.3 G/DL (6.4-8.2) H Albumin 2.9 G/DL (3.4-5.0) L Globulin 5.4 g/dL Albumin/Globulin Ratio 0.5 (1.0-2.7) L Plan Problems: (1) Sacral decubitus ulcer Assessment & Plan: This is a 83-year-old female with multiple medical committees that is currently admitted for medical care and management and identified to have multiple wounds requiring care. On admission patient noted to have a resolved sacral decubitus ulcer. Has had prior care and is well-healed at this time. Will ensure it does not open up again. Patient has a right ischial decubitus ulcer that is resolved. Scar intact and well formed. Will monitor to ensure it does not open up again. Patient has a left ischial decubitus ulcer that can be identified to be stage IV with palpable bone that has been resolving as noted by the periwound tissue and scar but open area approximately 1 cm x 1.5 cm few millimeters deep to bone identified. Unsure if this is been to be completely healed prior and has since opened or if has been healing at this level. No foul odor no drainage was unsure local wound care until healed Bilateral heels soft without signs of injury Resolving pressure injury L ischium(L)1.8cm x (W)1cm.Scattered biofilm at base of wound. Edges flat and adherent with surrounding hyperpigmentation. No odor or exudate noted. Sacrum is pale pink with surrounding hyperpigmentation. Hyperpigmentation R ischium with small sheared area centrally.No areas of erythema or exudate noted. Both heels are soft but blanchable. Skin Assessed under collar of trach and no evidence of skin breakdown noted. All wound Tx. are effective and continued as ordered. Pt ahs an APM/Belén mattress overlay and is being repositioned per protocols and per tolerance.No new skin concerns noted. Full thickness pressure injury L Ischium with small amt biofilm (L)1.8cm x (W) 1cm. Surrounding pink hyperpigmentation. No odor or exudate noted. Pike hyperpigmentation from previous wound noted to sacrum. Pt also noted to have Cat 2 Skin Tear dorsal L hand, L 5th metatarsal extending into palm of hand. 80% skin flap in situ.Both heels are dry firm and blanchable. No other skin concerns noted. R ischial wound has resolved. Pike epithelial with surrounding hyperpigmentation. from historical wound. Full thickness pressure injury L ischium. Pike granulation at base of wound. Borders are macerated with Surrounding hyperpigmentation.Small amt non-odorous serous exudate noted.(L)0.7cm x (W)0.8cm. Skin hyperpigmentation from historical wound noted to Sacrum. Small sheared area noted to sacrococcygeal area.(L)0.4cm x (W)0.3cm.Small amt sanguineous exudate noted. Reabsorbed blister with semi-detached dry necrotic cap noted to web space of L thumb and L index fingers extending into palm of L hand. No odor or exudate noted. Skin assessed under tracheal collar and no erythema or evidence of Skin Breakdown noted. NO new skin concerns noted . Good hand hygiene provided to both hands. R hand contracted and fisted. Fingernails trimmed. Wound care provided along with Primary nurse. Wound Tx continued as ordered. New order obtained from to apply Betadine to wound L hand Daily. Tx done as ordered. L hand wrapped with kerlix weaving kerlix between fingers to separate fingers. Moisture Barrier applied to sacrum ,R ischium. Each site covered with Optifoam drsg. Both lower ext washed and moisturized. Cavilon Skin Barrier applied to both heels.Each heel covered with Optifoam drsgs. Pt positioned with pillows and both heels off-loaded with pillow. Tx.Plan: Apply Betadine to wound L hand. Cover with Gauze and wrap with Kerlix Daily and prn. Cleanse L ischial wound with Saline. Apply Therahoney. Apply Moisture Barrier periwound. Cover with Optifoam drsgevery 3 days and prn. Apply Moisture Barrier Paste to R ischium and Sacrum. Cover each area with Optifoam drsg. Change every 3 days and prn. Apply Cavilon Skin Barrier to both heels. Cover each heel with Optifoam drsg. Change every 7 days and prn. APM/BELÉN Mattress overlay. Reposition at least every 2hours or as tolerated. Off-load heels with pillow. Cleanse Blister Dorsal and palm of L hand with saline. Versatel One Silicone Contact Layer(Applied). Apply Silvasorb Gel. Wrap with Kerlix Gauze.Change every 7 days and prn. Apply Moisture Barrier to sacrum. Cover with Optifoam drsg. Change every 3 days and prn. Cleanse L ischial wound with saline. Apply Therahoney. Apply Moisture Barrier Paste periwound. Cover with Optifoam drsg. Change every 3 days and prn. Apply Cavilon Skin Barrier to both heels. Cover each heel with Optifoam drsg. Change every 7 days and prn. APM/BELÉN Mattress overlay. Reposition at least every 2hours or as tolerated. Off-load heels with pillow. Nutritional optimization We will monitor follow with recommendations cont with above upon d/c (2) Sepsis Assessment & Plan: IV abx as per ID trend labs improving wounds unlikely etiology likely respiratory imaging noted and okay abnormal lft's stable PICC on Abx in ICU for desaturation CXR with consolidation cont with frequent suctioning Evidence of left lower lobe pneumonia, also previously demonstrated Gastrostomy in good position Mild diastasis of the rectus abdominis musculature again demonstrated Retrosacral decubitus changes, better depicted on prior exam which included the pelvis Small hiatal hernia with evidence of trace gastroesophageal reflux Discussed with GI. Recommend GJ family still pending decision (3) Feeding by G-tube Assessment & Plan: DAILY ESTIMATED NEEDS: Needs based on Pulmonary, wounds, bedbound/ 60kg adj 25-28 kcals/kg 0172-1566 total kcals 1.25-2 g protein/kg 75-120 g total protein 25-30 mL/kg 8077-0930 total fluid mLs NUTRITION DIAGNOSIS: * Swallowing difficulty R/T respiratory status as evidenced by pt on T-collar, now back the vent, PEG dep, TF changed to low rate at this time due to episodes of vomiting + residuals. * Increased kcal/prot needs R/T wound healing as evidenced by BL buttocks and sacral wound photos, refer to WC reynaldo. (CURRENT TF:Glucerna 1.5 @35ml) ENTERAL NUTRITION RECOMMENDATIONS: VITAL AF 1.2 @ 55ml/hr x 24 hrs to provide 1320ml, 1584kcal, 99g prot, 1060ml free water - Once medically appropriate to resume TF, rec to initiate elemental and carb control formula of Vital 1.2 for possible improved tolerance - Initiate VITAL 1.2 @ 25ml/hr x 6hrs, advance 10ml q 4-6 hrs as tolerated to goal rate - Flush per MD/ HOB over 30 degrees ADDITIONAL RECOMMENDATIONS: 1) Re-calibrated bedscale wt for accurate CBW 2) Wound healing: Add Cristian 1pkt BID w/ improved Tf tolerace + MVI x1 daily 3) Monitor lytes, replete as needed (low Mg, K) 4) Monitor NPO status, ability to resume TF. -> held on and off due to vomiting since 02/02 5) SSI prn resume tube feeds (4) Chronic vegetative state Assessment & Plan: incontinence of urine and stool. can soil dressings. nurses doing great job with monitoring and changing prn (5) Leukocytosis Walter Madera Mar 15, 2019 15:08
--- NOTE | 2019-03-15 16:00 | NUR ---
NURSE NOTES: LATE ENTRY: PT CLEANED AND REPOSITIONED, ORAL CARE PROVIDED. PT AFEBRILE. VS: HR 77, BP 165/63, SP02 100, RR 22. NON VERBAL, OPENS EYES SPONTANEOUSLY, DOES NOT FOLLOW COMMANDS. PUPILS 3MM, SLUGGISH. SECRETIONS HAVE DECREASED IN AMOUNT. G-TUBE IN PLACE. TUBE FEED GLUCERNA 1.5 RUNNING AT 10ML/HR, NO LEAKING FROM G-TUBE SITE, NO RESIDUALS. NO BM AT THIS TIME. CONTRACTED UPPER EXTREMITIES, FLACCID LOWER. SKIN-SEE ASSESSMENT. CONTACT AND SZ PRECAUTIONS IN PLACE. WILL CONTINUE TO MONITOR PT.
--- NOTE | 2019-03-15 19:00 | NUR ---
HAND-OFF: Report given to RUSTY PAEZ. PT IN NO ACUTE DISTRESS.
--- NOTE | 2019-03-15 19:10 | NUR ---
NURSE NOTES: Report received from JEANNINE Miller. Observed pt sleeping in the bed. Obtunded, open eyes, but does not tract. SR on athletic monitor. Trach to T-piece, 28%, 6L noted, no signs of SOB. GT intact, running Glucerna 1.5 at 10cc/hr, no vomit noted at this time. Purewick in placed. R UA PICC intact, running D5 1/2 NS at 75cc/hr. Bed in the lowest position. Side rails up x3 and padded. Will continue to monitor.
[2019-03-15] MEDS: Dyna-Hex 2% Top Sol 2oz TOPIC SCH (20:07)
--- NOTE | 2019-03-15 22:10 | NUR ---
NURSE NOTES: Observed pt lying in the bed. No acute change noted at this time. VS WNL. SR on monitoring tech. No signs of vomit noted. Suctioned x2. Breathing treatment given. Oral care and reposition done. Family member at bedside. Will continue to monitor.
[2019-03-16] VITALS (24 sets, daily range): BP systolic 92–164; BP diastolic 43–78
[2019-03-16] MEDS: Albuterol/Ipratropium 3ml neb HHN SCH ×7 (00:07→22:59)
--- NOTE | 2019-03-16 00:19 | NUR ---
NURSE NOTES: Pt sleeping in the bed. No acute distress noted at this time. VS WNL. Tolerating well with Tpiece. Reposition done. Will continue to monitor.
--- NOTE | 2019-03-16 02:00 | NUR ---
NURSE NOTES: Pt sleeping in the bed. No acute distress noted. Bed bath given. Central dressing changed, R UA. Reposition done. Oral care given. Will continue to monitor.
[2019-03-16] MEDS: Metoclopramide 10mg/2ml Inj IVP SCH ×4 (03:08→20:58)
--- NOTE | 2019-03-16 04:00 | NUR ---
NURSE NOTES: No acute distress noted at this time. Tolerating feeding at 10cc/hr, no signs of vomit. SR on cardiac technician. VS WNL. Will continue to monitor.
--- NOTE | 2019-03-16 06:00 | NUR ---
NURSE NOTES: Pt lying in the bed, no acute distress noted at this time. Moderate amount of secretion from mouth noted, suctioned x2. Will continue to monitor.
--- NOTE | 2019-03-16 07:25 | NUR ---
HAND-OFF: Report given to JEANNINE Rodriguez. No distress noted at this time.
--- NOTE | 2019-03-16 08:00 | NUR ---
NURSE NOTES: Received change of shift report from Davide PAEZ. Pt is asleep, head of bed at 30 degrees, opens eyes to touch, does not follow commands. Pt is on trach Shiley 6 XLT to Tpiece at 6L/FIO2 28% with O2Sat at 98%. Bilateral inspiratory and expiratory rhonchi/rales are heard on auscultation. SR on lunchroom monitor, HR in the 60's with weak peripheral pulses. PT has central line IV access on JOSY, double lumen PICC connected to IV fluid D5 0.45%NS at 75ml/hour infusing. Temp 97.5F axillary. GT intact connected to feeding Glucerna 1.5 at goal rate of 10ml/hour, no residual noted at this time. Purewhick/external catheter in place, draining mildly cloudy/yellow urine. Pt is pressure releasing mattress, bilateral lower extremities/off heels. Bed locked, in lowest position, three side rails up and call light within reach. Will continue with plan of care.
--- NOTE | 2019-03-16 08:33 | Pulmonology Progress Note ---
Assessment/Plan Assessment/Plan Impression: Sepsis syndrome Pneumonia VDRF, Trach, G tube, Hypertension, Cardiac disease, Dementia, Previous CVA, Seizure disorder, Respiratory failure with hypoxia Anemia, worsened ? gib Sacral ulcer renal cyst pulmonary congestion Plan respiratory care noted and reviewed neb therapy as is and suction ID noted off vent and monitor imaging stable Oxygen saturations adequate Monitor labs and protein levels aspiration precautions as is and elevate head polymicrobial infection noted Patient is a DNR. No CPR. ICU care reviewed family refusing dc medications/laboratory data/nursing notes/ICU care reviewed in detail note reviewed and edited care discussed with RN and RT ICU time spent 38 minutes Subjective ROS Limited/Unobtainable: Yes Allergies: Coded Allergies: CODEINE (Verified Allergy, Unknown, HIVES, 09/15/09) Subjective respiratory care noted on atropine and nebs- still requires suctioning ICU care reviewed still congested but able to remain off vent bed bound and obtunded findings reviewed and discussed ; imaging noted Objective Last 24 Hour Vital Signs Date Time Temp Pulse Resp B/P (MAP) Pulse Ox O2 Delivery O2 Flow Rate FiO2 03/16/19 07:03 100 T-Piece 6.0 28 03/16/19 07:03 68 20 100 T-Piece 6.0 28 70 24 100 03/16/19 07:00 68 23 147/65 (92) 100 03/16/19 06:00 70 24 154/56 (88) 100 03/16/19 05:00 71 24 164/59 (94) 100 03/16/19 04:00 94 03/16/19 04:00 T-piece 6.0 03/16/19 04:00 6.0 28 03/16/19 04:00 97.5 71 23 126/49 (74) 100 03/16/19 03:15 71 22 100 T-Piece 6.0 28 68 29 100 03/16/19 03:00 69 24 154/62 (92) 100 03/16/19 02:00 65 23 142/63 (89) 100 03/16/19 01:12 100 T-Piece 6.0 28 03/16/19 01:00 63 23 148/64 (92) 100 03/16/19 00:07 65 19 100 T-Piece 6.0 28 60 21 99 03/16/19 00:00 6.0 28 03/16/19 00:00 60 03/16/19 00:00 T-piece 6.0 03/16/19 00:00 97.5 61 22 94/49 (64) 99 03/15/19 23:00 62 20 128/51 (76) 100 03/15/19 22:00 65 22 137/70 (92) 100 03/15/19 21:40 67 19 100 T-Piece 6.0 28 64 20 100 03/15/19 21:00 70 21 129/56 (80) 100 03/15/19 20:00 T-piece 6.0 03/15/19 20:00 6.0 28 03/15/19 20:00 68 03/15/19 20:00 97.8 67 22 97/43 (61) 97 03/15/19 19:26 98 T-Piece 6.0 28 03/15/19 19:25 76 18 100 T-Piece 6.0 28 74 22 98 03/15/19 19:00 75 23 100/48 (65) 97 03/15/19 18:00 85 23 147/61 (89) 98 03/15/19 17:00 99 19 177/115 (135) 98 03/15/19 16:00 T-piece 6.0 03/15/19 16:00 98.0 76 22 159/68 (98) 100 03/15/19 16:00 110 03/15/19 16:00 6.0 28 03/15/19 15:49 85 21 100 T-Piece 6.0 28 93 22 100 03/15/19 15:00 81 25 147/67 (93) 99 03/15/19 14:00 83 27 132/66 (88) 100 03/15/19 13:05 100 T-Piece 6.0 28 03/15/19 13:00 77 22 101/39 (59) 100 03/15/19 12:00 81 03/15/19 12:00 6.0 28 03/15/19 12:00 T-piece 6.0 03/15/19 12:00 98.3 80 23 94/39 (57) 100 03/15/19 11:06 101/42 03/15/19 11:00 75 21 101/42 (61) 100 03/15/19 10:45 86 21 100 T-Piece 6.0 28 83 22 100 03/15/19 10:33 82 22 100 T-Piece 6.0 28 81 25 100 03/15/19 10:00 81 26 137/66 (89) 100 03/15/19 09:00 73 21 101/42 (61) 100 Intake and Output 03/15/19 03/16/19 19:00 07:00 Intake Total 945 ml 1025 ml Output Total 440 ml 200 ml Balance 505 ml 825 ml Free Water 80 ml IV Total 825 ml 825 ml Tube Feeding 120 ml 120 ml Output Urine Total 440 ml 200 ml # Bowel Movements 1 Objective WDWN NAD contracted off vent reduced breath sounds bilaterally with some rhonchi [id number] without MRG NABS nontender no HSM no CC trace edema nonfocal nonverbal trach and gt reviewed and edited Current Medications Medications (Trade) Dose Ordered Sig/Maicol Route PRN Reason Start Time Stop Time Status Last Admin Dose Admin Albuterol/ Ipratropium (Albuterol/ Ipratropium) 3 ml Q4HRT HHN 03/15/19 03:00 03/20/19 02:59 03/16/19 07:02 Amikacin Sulfate (Amikin) 500 mg Q12HR@10,22 INH 03/07/19 11:00 03/16/19 23:59 03/15/19 21:40 Atropine Sulfate (Atropine Opth Adriana) 2 drop TID SL 03/07/19 09:00 04/06/19 08:59 03/15/19 17:34 Bacitracin (Bacitracin 15gm tube) 1 applic THREE TIMES A DAY TOPIC 02/28/19 18:30 03/30/19 18:29 03/15/19 17:34 Chlorhexidine Gluconate (Cesilia-Hex 2%) 1 applic DAILY@1999 TOPIC 03/12/19 20:00 04/11/19 19:59 03/15/19 20:07 Clonidine HCl (Catapres TTS-1) 1 patch QWEEK TDERMAL 03/15/19 09:00 04/14/19 08:59 03/15/19 11:06 Dextrose/Sodium Chloride 1,000 ml @ 75 mls/hr [id number] IV 03/07/19 11:15 04/06/19 11:14 03/15/19 19:21 Famotidine (Pepcid) 20 mg BID GT 03/02/19 18:00 04/01/19 17:59 03/15/19 17:33 Heparin Sodium (Porcine) (Heparin 5000 units/ml) 5,000 units EVERY 12 HOURS SUBQ 03/15/19 21:00 03/23/19 23:14 03/15/19 20:09 Hydralazine HCl (Apresoline) 10 mg Q4H PRN IV For High Blood Pressure 03/12/19 09:00 04/11/19 08:59 03/14/19 21:18 Levetiracetam (Keppra) 750 mg Q12HR GT 03/15/19 21:00 03/23/19 23:29 03/15/19 20:07 Metoclopramide HCl (Reglan) 5 mg Q6H IVP 03/10/19 02:00 03/24/19 01:59 03/16/19 03:08 Potassium Chloride (K-Dur) 20 meq TWICE A DAY GT 03/12/19 09:00 04/11/19 08:59 03/15/19 17:33 Scopolamine (TransDerm Scop 1.5mg/72HR Patch) 1.5 mg Q72H TDERMAL 03/11/19 13:00 04/10/19 12:59 03/14/19 13:58 Amaury Chan MD Mar 16, 2019 08:33
[2019-03-16] MEDS: levETIRAcetam 500mg/5ml Liquid GT SCH ×2 (09:21→20:58)
[2019-03-16] MEDS: Amikacin for Inhalation 2ML INH SCH (09:23)
[2019-03-16] MEDS: D5 1/2NS 1,000 ML IV SCH ×2 (09:31→20:58)
[2019-03-16] MEDS: Bacitracin Oint 15gm Tube TOPIC SCH ×3 (09:31→16:46)
[2019-03-16] MEDS: Heparin 5000 units/ml inj SUBQ SCH ×2 (09:32→20:59)
--- NOTE | 2019-03-16 09:33 | Nephrology Progress Note ---
Assessment/Plan Problem List: (1) Acute renal failure (ARF) Assessment: Cr stable (2) Chronic respiratory failure (3) Anemia (4) Sepsis Assessment Acute renal failure Respiratory failure - Trach Low Mag- Low k , Low Na Anemia UTI / Sepsis Proteinuria / HypoAlbuminemia high Trigs Sz decubs bed bound DNR Plan lab reviewed bolus Albumin as needed K and Mag and Phos supplement as needed Hydrate as needed Urine studies avoid Nephrotoxics mag K Phos supplements as needed monitor renal parameters Subjective ROS Limited/Unobtainable: No Constitutional: Reports: malaise Objective Objective Last 24 Hour Vital Signs Date Time Temp Pulse Resp B/P (MAP) Pulse Ox O2 Delivery O2 Flow Rate FiO2 03/16/19 09:27 69 18 100 T-Piece 6.0 28 68 18 100 03/16/19 07:03 100 T-Piece 6.0 28 03/16/19 07:03 68 20 100 T-Piece 6.0 28 70 24 100 03/16/19 07:00 68 23 147/65 (92) 100 03/16/19 06:00 70 24 154/56 (88) 100 03/16/19 05:00 71 24 164/59 (94) 100 03/16/19 04:00 94 03/16/19 04:00 T-piece 6.0 03/16/19 04:00 6.0 28 03/16/19 04:00 97.5 71 23 126/49 (74) 100 03/16/19 03:15 71 22 100 T-Piece 6.0 28 68 29 100 03/16/19 03:00 69 24 154/62 (92) 100 03/16/19 02:00 65 23 142/63 (89) 100 03/16/19 01:12 100 T-Piece 6.0 28 03/16/19 01:00 63 23 148/64 (92) 100 03/16/19 00:07 65 19 100 T-Piece 6.0 28 60 21 99 03/16/19 00:00 6.0 28 03/16/19 00:00 60 03/16/19 00:00 T-piece 6.0 03/16/19 00:00 97.5 61 22 94/49 (64) 99 03/15/19 23:00 62 20 128/51 (76) 100 03/15/19 22:00 65 22 137/70 (92) 100 03/15/19 21:40 67 19 100 T-Piece 6.0 28 64 20 100 03/15/19 21:00 70 21 129/56 (80) 100 03/15/19 20:00 T-piece 6.0 03/15/19 20:00 6.0 28 03/15/19 20:00 68 03/15/19 20:00 97.8 67 22 97/43 (61) 97 03/15/19 19:26 98 T-Piece 6.0 28 03/15/19 19:25 76 18 100 T-Piece 6.0 28 74 22 98 03/15/19 19:00 75 23 100/48 (65) 97 03/15/19 18:00 85 23 147/61 (89) 98 03/15/19 17:00 99 19 177/115 (135) 98 03/15/19 16:00 T-piece 6.0 03/15/19 16:00 98.0 76 22 159/68 (98) 100 03/15/19 16:00 110 03/15/19 16:00 6.0 28 03/15/19 15:49 85 21 100 T-Piece 6.0 28 93 22 100 03/15/19 15:00 81 25 147/67 (93) 99 03/15/19 14:00 83 27 132/66 (88) 100 03/15/19 13:05 100 T-Piece 6.0 28 03/15/19 13:00 77 22 101/39 (59) 100 03/15/19 12:00 81 03/15/19 12:00 6.0 28 03/15/19 12:00 T-piece 6.0 03/15/19 12:00 98.3 80 23 94/39 (57) 100 03/15/19 11:06 101/42 03/15/19 11:00 75 21 101/42 (61) 100 03/15/19 10:45 86 21 100 T-Piece 6.0 28 83 22 100 03/15/19 10:33 82 22 100 T-Piece 6.0 28 81 25 100 03/15/19 10:00 81 26 137/66 (89) 100 Intake and Output 03/15/19 03/16/19 19:00 07:00 Intake Total 945 ml 1025 ml Output Total 440 ml 200 ml Balance 505 ml 825 ml Free Water 80 ml IV Total 825 ml 825 ml Tube Feeding 120 ml 120 ml Output Urine Total 440 ml 200 ml # Bowel Movements 1 Height (Feet): 5 Height (Inches): 5.00 Weight (Pounds): 132 General Appearance: no apparent distress, lethargic Neck: other - trach O2 tube Respiratory/Chest: decreased breath sounds Abdomen: distended, other - leaking GT food Objective no change Eric Cortez MD Mar 16, 2019 09:33
--- NOTE | 2019-03-16 09:39 | General Progress Note ---
Assessment/Plan Problem List: (1) Seizure ICD Codes: R56.9 - Unspecified convulsions SNOMED: 75494072 (2) Anemia ICD Codes: D64.9 - Anemia, unspecified SNOMED: 597180807 Qualifiers: Qualified Codes: D64.9 - Anemia, unspecified (3) Sepsis ICD Codes: A41.9 - Sepsis, unspecified organism SNOMED: 49176503, 862826300 Qualifiers: Qualified Codes: A41.9 - Sepsis, unspecified organism (4) Respiratory failure with hypoxia ICD Codes: J96.91 - Respiratory failure, unspecified with hypoxia SNOMED: [id number] Qualifiers: Qualified Codes: J96.21 - Acute and chronic respiratory failure with hypoxia (5) HCAP (healthcare-associated pneumonia) ICD Codes: J18.9 - Pneumonia, unspecified organism SNOMED: 824507635, 740140957 (6) Sacral decubitus ulcer ICD Codes: L89.159 - Pressure ulcer of sacral region, unspecified stage SNOMED: 256872086 (7) HTN (hypertension) ICD Codes: I10 - Essential (primary) hypertension SNOMED: 86592546 (8) Chronic vegetative state ICD Codes: R40.3 - Persistent vegetative state SNOMED: 74596435 (9) Chronic respiratory failure ICD Codes: J96.10 - Chronic respiratory failure, unspecified whether with hypoxia or hypercapnia SNOMED: 21059722 (10) Limited mobility ICD Codes: Z74.09 - Other reduced mobility SNOMED: 0508664 Status: stable, progressing Assessment/Plan: vent prn as needed resp rx suctioning as needed gt feeds with caution/as tolerated bowel regime monitor residuals sx rx monitor bp monitor cbc monitor for bleeding replace lytes cxr Subjective ROS Limited/Unobtainable: Yes Constitutional: Reports: malaise, weakness HEENT: Reports: no symptoms Cardiovascular: Reports: no symptoms Respiratory: Reports: cough, SOB with excertion, sputum Gastrointestinal/Abdominal: Reports: difficulty swallowing Genitourinary: Reports: no symptoms Neurologic/Psychiatric: Reports: pre-existing deficit, seizure Endocrine: Reports: no symptoms Hematologic/Lymphatic: Reports: anemia Allergies: Coded Allergies: CODEINE (Verified Allergy, Unknown, HIVES, 09/15/09) All Systems: reviewed and negative except above Subjective tolerating feeds at a low rate. less congestion. h/h stable. feeds on hold. pt getting ivf. Dtr declined J tube conversion in the past. labs reviewed Objective Last 24 Hour Vital Signs Date Time Temp Pulse Resp B/P (MAP) Pulse Ox O2 Delivery O2 Flow Rate FiO2 03/16/19 09:27 69 18 100 T-Piece 6.0 28 68 18 100 03/16/19 07:03 100 T-Piece 6.0 28 03/16/19 07:03 68 20 100 T-Piece 6.0 28 70 24 100 03/16/19 07:00 68 23 147/65 (92) 100 03/16/19 06:00 70 24 154/56 (88) 100 03/16/19 05:00 71 24 164/59 (94) 100 03/16/19 04:00 94 03/16/19 04:00 T-piece 6.0 03/16/19 04:00 6.0 28 03/16/19 04:00 97.5 71 23 126/49 (74) 100 03/16/19 03:15 71 22 100 T-Piece 6.0 28 68 29 100 03/16/19 03:00 69 24 154/62 (92) 100 03/16/19 02:00 65 23 142/63 (89) 100 03/16/19 01:12 100 T-Piece 6.0 28 03/16/19 01:00 63 23 148/64 (92) 100 03/16/19 00:07 65 19 100 T-Piece 6.0 28 60 21 99 03/16/19 00:00 6.0 28 03/16/19 00:00 60 03/16/19 00:00 T-piece 6.0 03/16/19 00:00 97.5 61 22 94/49 (64) 99 03/15/19 23:00 62 20 128/51 (76) 100 03/15/19 22:00 65 22 137/70 (92) 100 03/15/19 21:40 67 19 100 T-Piece 6.0 28 64 20 100 03/15/19 21:00 70 21 129/56 (80) 100 03/15/19 20:00 T-piece 6.0 03/15/19 20:00 6.0 28 03/15/19 20:00 68 03/15/19 20:00 97.8 67 22 97/43 (61) 97 03/15/19 19:26 98 T-Piece 6.0 28 03/15/19 19:25 76 18 100 T-Piece 6.0 28 74 22 98 03/15/19 19:00 75 23 100/48 (65) 97 03/15/19 18:00 85 23 147/61 (89) 98 03/15/19 17:00 99 19 177/115 (135) 98 03/15/19 16:00 T-piece 6.0 03/15/19 16:00 98.0 76 22 159/68 (98) 100 03/15/19 16:00 110 03/15/19 16:00 6.0 28 03/15/19 15:49 85 21 100 T-Piece 6.0 28 93 22 100 03/15/19 15:00 81 25 147/67 (93) 99 03/15/19 14:00 83 27 132/66 (88) 100 03/15/19 13:05 100 T-Piece 6.0 28 03/15/19 13:00 77 22 101/39 (59) 100 03/15/19 12:00 81 03/15/19 12:00 6.0 28 03/15/19 12:00 T-piece 6.0 03/15/19 12:00 98.3 80 23 94/39 (57) 100 03/15/19 11:06 101/42 03/15/19 11:00 75 21 101/42 (61) 100 03/15/19 10:45 86 21 100 T-Piece 6.0 28 83 22 100 03/15/19 10:33 82 22 100 T-Piece 6.0 28 81 25 100 03/15/19 10:00 81 26 137/66 (89) 100 Intake and Output 03/15/19 03/16/19 19:00 07:00 Intake Total 945 ml 1025 ml Output Total 440 ml 200 ml Balance 505 ml 825 ml Free Water 80 ml IV Total 825 ml 825 ml Tube Feeding 120 ml 120 ml Output Urine Total 440 ml 200 ml # Bowel Movements 1 Height (Feet): 5 Height (Inches): 5.00 Weight (Pounds): 132 Objective General Appearance: WD/WN, confused. on trach collar Neck: supple Cardiovascular: normal rate, regular rhythm Respiratory/Chest: chest wall non-tender, rhonchi - bilaterally(minimal) Abdomen: normal bowel sounds, non tender, soft, no organomegaly Edema: no edema noted Arm (L), no edema noted Arm (R), no edema noted Leg (L), no edema noted Leg (R), no edema noted Pedal (L), no edema noted Pedal (R), no edema noted Generalized Neurologic: disoriented, unresponsive, aphasia Irvin Beltrán MD Mar 16, 2019 09:39
--- NOTE | 2019-03-16 10:00 | NUR ---
NURSE NOTES: AM meds were administered. Pt was suctioned, output of moderate amount of clear/white secretion noted. Oral care was done. Pt was repositioned. VS remain stable. Pt is resting with no signs/symptoms of distress noted.
--- NOTE | 2019-03-16 10:04 | NUR ---
RD ASSESSMENT & RECOMMENDATIONS SEE CARE ACTIVITY FOR COMPLETE ASSESSMENT DAILY ESTIMATED NEEDS: Needs based on Pulmonary, wounds, bedbound/ 60kg adj 25-30 kcals/kg 9201-3621 total kcals 1.25-2 g protein/kg 75-120 g total protein 25-30 mL/kg 0302-7112 total fluid mLs NUTRITION DIAGNOSIS: * Increased kcal/prot needs R/T wound healing as evidenced by BL buttocks and sacral wound photos, refer to eval. * Swallowing difficulty R/T respiratory status as evidenced by pt on T-collar, now back the vent, PEG dep. CURRENT TF: Glucerna 1.5 @ 25ml/hr x 24 hrs - currently running @10 ENTERAL NUTRITION RECOMMENDATIONS: Glucerna 1.5 @ 45ml/hr x 24 hrs to provide 1080ml, 1620kcal, 89g prot, 820ml free water - W/ continued good TF tolerance, rec to increase goal rate to 45ml/hr x 24 hrs to meet 100% est kcal/prot needs - HOB over 30 degrees - Water flush of 170ml q 6 hrs * W/ continued regurgitation/ emesis, rec Osmolite 1.5 for GI tolerance. Rec goal of 45ml/hr to provide: 1080ml, 1620 kcal, 68g pro, 823ml free H20. * Add Prosource 1 pack daily to provide additional 11g pro. ADDITIONAL RECOMMENDATIONS: 1) Weekly weights 2) Wound healing: Add Cristian 1pkt BID w/ continued good TF tolerance + MVI x1 daily 3) Monitor lytes, replete as needed 4) Monitor BGs closely, need for NISS (wnl) 5) Monitor TF tolerance: rec Tf change as above if not .
--- NOTE | 2019-03-16 11:11 | Infectious Diseases Prog Note ---
"Assessment/Plan Assessment/Plan antibiotics : inhaled amikacin A 1. klebsiella | providencia pneumonia s/p rx 2. respiratory failure 3. hypertension 4. CVA 5. dementia 6. sacral decubitus ulcer 7. rectal VRE colonization P 1. d/c inhaled amikacin 2. observe off antibiotics Subjective ROS Limited/Unobtainable: Yes Allergies: Coded Allergies: CODEINE (Verified Allergy, Unknown, HIVES, 09/15/09) Objective Vital Signs Last 24 Hour Vital Signs Date Time Temp Pulse Resp B/P (MAP) Pulse Ox O2 Delivery O2 Flow Rate FiO2 03/16/19 11:00 62 19 99/48 (65) 98 03/16/19 10:00 64 18 113/49 (70) 99 03/16/19 09:27 69 18 100 T-Piece 6.0 28 68 18 100 03/16/19 09:00 70 21 102/47 (65) 98 03/16/19 09:00 69 22 102/47 (65) 98 03/16/19 08:00 68 03/16/19 08:00 6.0 28 03/16/19 08:00 T-piece 6.0 03/16/19 08:00 97.5 64 21 133/48 (76) 100 03/16/19 08:00 97.8 68 21 133/48 (76) 98 03/16/19 07:03 100 T-Piece 6.0 28 03/16/19 07:03 68 20 100 T-Piece 6.0 28 70 24 100 03/16/19 07:00 68 23 147/65 (92) 100 03/16/19 06:00 70 24 154/56 (88) 100 03/16/19 05:00 71 24 164/59 (94) 100 03/16/19 04:00 94 03/16/19 04:00 T-piece 6.0 03/16/19 04:00 6.0 28 03/16/19 04:00 97.5 71 23 126/49 (74) 100 03/16/19 03:15 71 22 100 T-Piece 6.0 28 68 29 100 03/16/19 03:00 69 24 154/62 (92) 100 03/16/19 02:00 65 23 142/63 (89) 100 03/16/19 01:12 100 T-Piece 6.0 28 03/16/19 01:00 63 23 148/64 (92) 100 03/16/19 00:07 65 19 100 T-Piece 6.0 28 60 21 99 03/16/19 00:00 6.0 28 03/16/19 00:00 60 03/16/19 00:00 T-piece 6.0 03/16/19 00:00 97.5 61 22 94/49 (64) 99 03/15/19 23:00 62 20 128/51 (76) 100 03/15/19 22:00 65 22 137/70 (92) 100 03/15/19 21:40 67 19 100 T-Piece 6.0 28 64 20 100 03/15/19 21:00 70 21 129/56 (80) 100 03/15/19 20:00 T-piece 6.0 03/15/19 20:00 6.0 28 03/15/19 20:00 68 03/15/19 20:00 97.8 67 22 97/43 (61) 97 03/15/19 19:26 98 T-Piece 6.0 28 03/15/19 19:25 76 18 100 T-Piece 6.0 28 74 22 98 03/15/19 19:00 75 23 100/48 (65) 97 03/15/19 18:00 85 23 147/61 (89) 98 03/15/19 17:00 99 19 177/115 (135) 98 03/15/19 16:00 T-piece 6.0 03/15/19 16:00 98.0 76 22 159/68 (98) 100 03/15/19 16:00 110 03/15/19 16:00 6.0 28 03/15/19 15:49 85 21 100 T-Piece 6.0 28 93 22 100 03/15/19 15:00 81 25 147/67 (93) 99 03/15/19 14:00 83 27 132/66 (88) 100 03/15/19 13:05 100 T-Piece 6.0 28 03/15/19 13:00 77 22 101/39 (59) 100 03/15/19 12:00 81 03/15/19 12:00 6.0 28 03/15/19 12:00 T-piece 6.0 03/15/19 12:00 98.3 80 23 94/39 (57) 100 Height (Feet): 5 Height (Inches): 5.00 Weight (Pounds): 132 HEENT: status post trach Respiratory/Chest: lungs clear Cardiovascular: normal rate, regular rhythm, no gallop/murmur Abdomen: soft, non tender, other - GT Extremities: no edema, other - right arm PICC Current Medications Medications (Trade) Dose Ordered Sig/Maicol Route PRN Reason Start Time Stop Time Status Last Admin Dose Admin Albuterol/ Ipratropium (Albuterol/ Ipratropium) 3 ml Q4HRT HHN 03/15/19 03:00 03/20/19 02:59 03/16/19 07:02 Amikacin Sulfate (Amikin) 500 mg Q12HR@10,22 INH 03/07/19 11:00 03/16/19 23:59 03/16/19 09:23 Atropine Sulfate (Atropine Opth Adriana) 2 drop TID SL 03/07/19 09:00 04/06/19 08:59 03/16/19 09:31 Bacitracin (Bacitracin 15gm tube) 1 applic THREE TIMES A DAY TOPIC 02/28/19 18:30 03/30/19 18:29 03/16/19 09:31 Chlorhexidine Gluconate (Cesilia-Hex 2%) 1 applic DAILY@1999 TOPIC 03/12/19 20:00 04/11/19 19:59 03/15/19 20:07 Clonidine HCl (Catapres TTS-1) 1 patch QWEEK TDERMAL 03/15/19 09:00 04/14/19 08:59 03/15/19 11:06 Dextrose/Sodium Chloride 1,000 ml @ 75 mls/hr [id number] IV 03/07/19 11:15 04/06/19 11:14 03/16/19 09:31 Famotidine (Pepcid) 20 mg BID GT 03/02/19 18:00 04/01/19 17:59 03/16/19 09:21 Heparin Sodium (Porcine) (Heparin 5000 units/ml) 5,000 units EVERY 12 HOURS SUBQ 03/15/19 21:00 03/23/19 23:14 03/16/19 09:32 Hydralazine HCl (Apresoline) 10 mg Q4H PRN IV For High Blood Pressure 03/12/19 09:00 04/11/19 08:59 03/14/19 21:18 Levetiracetam (Keppra) 750 mg Q12HR GT 03/15/19 21:00 03/23/19 23:29 03/16/19 09:21 Metoclopramide HCl (Reglan) 5 mg Q6H IVP 03/10/19 02:00 03/24/19 01:59 03/16/19 09:21 Potassium Chloride (K-Dur) 20 meq TWICE A DAY GT 03/12/19 09:00 04/11/19 08:59 03/16/19 09:21 Scopolamine (TransDerm Scop 1.5mg/72HR Patch) 1.5 mg Q72H TDERMAL 03/11/19 13:00 04/10/19 12:59 03/14/19 13:58 Geovany Yang MD Mar 16, 2019 11:11"
--- NOTE | 2019-03-16 12:00 | NUR ---
NURSE NOTES: Pt is asleep with stable VS. Remains afebrile. Pt was suctioned, output of moderate amount of clear/white secretions noted. NSR on physical geographer. Urine output remains average of 30ml/hourly cloudy/yellow urine with sediments.
--- NOTE | 2019-03-16 14:00 | NUR ---
NURSE NOTES: Pt was repositioned. Oral care done and pt suctioned. VS remains stable. Pt is resting in no apparent distress.
--- NOTE | 2019-03-16 16:24 | NUR ---
NURSE NOTES: Pt was cleaned, wound dressings changed, gown/bed linens were changed. Pt was suctioned and oral care done. Pt was repositioned with bilateral lower extremities elevated on pillows, off/heels. VS remain stable. Pt is afebrile.
--- NOTE | 2019-03-16 16:30 | Surgery Progress Note ---
Surgery Progress Note Subjective Additional Comments pending placement Objective Last 24 Hour Vital Signs Date Time Temp Pulse Resp B/P (MAP) Pulse Ox O2 Delivery O2 Flow Rate FiO2 03/16/19 15:00 60 20 105/49 (67) 96 03/16/19 14:52 62 18 100 T-Piece 6.0 28 65 16 99 03/16/19 14:00 62 21 92/44 (60) 96 03/16/19 13:43 100 T-Piece 6.0 28 03/16/19 13:00 61 20 110/47 (68) 99 03/16/19 12:00 61 03/16/19 12:00 T-piece 6.0 03/16/19 12:00 97.6 66 20 142/62 (88) 100 03/16/19 12:00 6.0 28 03/16/19 11:23 63 18 100 T-Piece 6.0 28 60 18 99 03/16/19 11:00 62 19 99/48 (65) 98 03/16/19 10:00 64 18 113/49 (70) 99 03/16/19 09:27 69 18 100 T-Piece 6.0 28 68 18 100 03/16/19 09:00 70 21 102/47 (65) 98 03/16/19 09:00 69 22 102/47 (65) 98 03/16/19 08:00 68 03/16/19 08:00 6.0 28 03/16/19 08:00 T-piece 6.0 03/16/19 08:00 97.5 64 21 133/48 (76) 100 03/16/19 08:00 97.8 68 21 133/48 (76) 98 03/16/19 07:03 100 T-Piece 6.0 28 03/16/19 07:03 68 20 100 T-Piece 6.0 28 70 24 100 03/16/19 07:00 68 23 147/65 (92) 100 03/16/19 06:00 70 24 154/56 (88) 100 03/16/19 05:00 71 24 164/59 (94) 100 03/16/19 04:00 94 03/16/19 04:00 T-piece 6.0 03/16/19 04:00 6.0 28 03/16/19 04:00 97.5 71 23 126/49 (74) 100 03/16/19 03:15 71 22 100 T-Piece 6.0 28 68 29 100 03/16/19 03:00 69 24 154/62 (92) 100 03/16/19 02:00 65 23 142/63 (89) 100 03/16/19 01:12 100 T-Piece 6.0 28 03/16/19 01:00 63 23 148/64 (92) 100 03/16/19 00:07 65 19 100 T-Piece 6.0 28 60 21 99 03/16/19 00:00 6.0 28 03/16/19 00:00 60 03/16/19 00:00 T-piece 6.0 03/16/19 00:00 97.5 61 22 94/49 (64) 99 03/15/19 23:00 62 20 128/51 (76) 100 03/15/19 22:00 65 22 137/70 (92) 100 03/15/19 21:40 67 19 100 T-Piece 6.0 28 64 20 100 03/15/19 21:00 70 21 129/56 (80) 100 03/15/19 20:00 T-piece 6.0 03/15/19 20:00 6.0 28 03/15/19 20:00 68 03/15/19 20:00 97.8 67 22 97/43 (61) 97 03/15/19 19:26 98 T-Piece 6.0 28 03/15/19 19:25 76 18 100 T-Piece 6.0 28 74 22 98 03/15/19 19:00 75 23 100/48 (65) 97 03/15/19 18:00 85 23 147/61 (89) 98 03/15/19 17:00 99 19 177/115 (135) 98 I&O Intake and Output 03/15/19 03/16/19 19:00 07:00 Intake Total 945 ml 1025 ml Output Total 440 ml 200 ml Balance 505 ml 825 ml Free Water 80 ml IV Total 825 ml 825 ml Tube Feeding 120 ml 120 ml Output Urine Total 440 ml 200 ml # Bowel Movements 1 Dressing: other Wound: other Drains: other Cardiovascular: RSR Respiratory: decreased breath sounds Abdomen: soft, present bowel sounds Extremities: no cyanosis Plan Problems: (1) Sacral decubitus ulcer Assessment & Plan: This is a 83-year-old female with multiple medical committees that is currently admitted for medical care and management and identified to have multiple wounds requiring care. On admission patient noted to have a resolved sacral decubitus ulcer. Has had prior care and is well-healed at this time. Will ensure it does not open up again. Patient has a right ischial decubitus ulcer that is resolved. Scar intact and well formed. Will monitor to ensure it does not open up again. Patient has a left ischial decubitus ulcer that can be identified to be stage IV with palpable bone that has been resolving as noted by the periwound tissue and scar but open area approximately 1 cm x 1.5 cm few millimeters deep to bone identified. Unsure if this is been to be completely healed prior and has since opened or if has been healing at this level. No foul odor no drainage was unsure local wound care until healed Bilateral heels soft without signs of injury Resolving pressure injury L ischium(L)1.8cm x (W)1cm.Scattered biofilm at base of wound. Edges flat and adherent with surrounding hyperpigmentation. No odor or exudate noted. Sacrum is pale pink with surrounding hyperpigmentation. Hyperpigmentation R ischium with small sheared area centrally.No areas of erythema or exudate noted. Both heels are soft but blanchable. Skin Assessed under collar of trach and no evidence of skin breakdown noted. All wound Tx. are effective and continued as ordered. Pt ahs an APM/Belén mattress overlay and is being repositioned per protocols and per tolerance.No new skin concerns noted. Full thickness pressure injury L Ischium with small amt biofilm (L)1.8cm x (W) 1cm. Surrounding pink hyperpigmentation. No odor or exudate noted. Argos hyperpigmentation from previous wound noted to sacrum. Pt also noted to have Cat 2 Skin Tear dorsal L hand, L 5th metatarsal extending into palm of hand. 80% skin flap in situ.Both heels are dry firm and blanchable. No other skin concerns noted. R ischial wound has resolved. Argos epithelial with surrounding hyperpigmentation. from historical wound. Full thickness pressure injury L ischium. Argos granulation at base of wound. Borders are macerated with Surrounding hyperpigmentation.Small amt non-odorous serous exudate noted.(L)0.7cm x (W)0.8cm. Skin hyperpigmentation from historical wound noted to Sacrum. Small sheared area noted to sacrococcygeal area.(L)0.4cm x (W)0.3cm.Small amt sanguineous exudate noted. Reabsorbed blister with semi-detached dry necrotic cap noted to web space of L thumb and L index fingers extending into palm of L hand. No odor or exudate noted. Skin assessed under tracheal collar and no erythema or evidence of Skin Breakdown noted. NO new skin concerns noted . Good hand hygiene provided to both hands. R hand contracted and fisted. Fingernails trimmed. Wound care provided along with Primary nurse. Wound Tx continued as ordered. New order obtained from to apply Betadine to wound L hand Daily. Tx done as ordered. L hand wrapped with kerlix weaving kerlix between fingers to separate fingers. Moisture Barrier applied to sacrum ,R ischium. Each site covered with Optifoam drsg. Both lower ext washed and moisturized. Cavilon Skin Barrier applied to both heels.Each heel covered with Optifoam drsgs. Pt positioned with pillows and both heels off-loaded with pillow. Tx.Plan: Apply Betadine to wound L hand. Cover with Gauze and wrap with Kerlix Daily and prn. Cleanse L ischial wound with Saline. Apply Therahoney. Apply Moisture Barrier periwound. Cover with Optifoam drsgevery 3 days and prn. Apply Moisture Barrier Paste to R ischium and Sacrum. Cover each area with Optifoam drsg. Change every 3 days and prn. Apply Cavilon Skin Barrier to both heels. Cover each heel with Optifoam drsg. Change every 7 days and prn. APM/BELÉN Mattress overlay. Reposition at least every 2hours or as tolerated. Off-load heels with pillow. Cleanse Blister Dorsal and palm of L hand with saline. Versatel One Silicone Contact Layer(Applied). Apply Silvasorb Gel. Wrap with Kerlix Gauze.Change every 7 days and prn. Apply Moisture Barrier to sacrum. Cover with Optifoam drsg. Change every 3 days and prn. Cleanse L ischial wound with saline. Apply Therahoney. Apply Moisture Barrier Paste periwound. Cover with Optifoam drsg. Change every 3 days and prn. Apply Cavilon Skin Barrier to both heels. Cover each heel with Optifoam drsg. Change every 7 days and prn. APM/BELÉN Mattress overlay. Reposition at least every 2hours or as tolerated. Off-load heels with pillow. Nutritional optimization We will monitor follow with recommendations cont with above upon d/c (2) Sepsis Assessment & Plan: IV abx as per ID trend labs improving wounds unlikely etiology likely respiratory imaging noted and okay abnormal lft's stable PICC on Abx in ICU for desaturation CXR with consolidation cont with frequent suctioning Evidence of left lower lobe pneumonia, also previously demonstrated Gastrostomy in good position Mild diastasis of the rectus abdominis musculature again demonstrated Retrosacral decubitus changes, better depicted on prior exam which included the pelvis Small hiatal hernia with evidence of trace gastroesophageal reflux Discussed with GI. Recommend GJ family still pending decision (3) Feeding by G-tube Assessment & Plan: DAILY ESTIMATED NEEDS: Needs based on Pulmonary, wounds, bedbound/ 60kg adj 25-28 kcals/kg 5294-3371 total kcals 1.25-2 g protein/kg 75-120 g total protein 25-30 mL/kg 0574-7437 total fluid mLs NUTRITION DIAGNOSIS: * Swallowing difficulty R/T respiratory status as evidenced by pt on T-collar, now back the vent, PEG dep, TF changed to low rate at this time due to episodes of vomiting + residuals. * Increased kcal/prot needs R/T wound healing as evidenced by BL buttocks and sacral wound photos, refer to reynaldo. (CURRENT TF:Glucerna 1.5 @35ml) ENTERAL NUTRITION RECOMMENDATIONS: VITAL AF 1.2 @ 55ml/hr x 24 hrs to provide 1320ml, 1584kcal, 99g prot, 1060ml free water - Once medically appropriate to resume TF, rec to initiate elemental and carb control formula of Vital 1.2 for possible improved tolerance - Initiate VITAL 1.2 @ 25ml/hr x 6hrs, advance 10ml q 4-6 hrs as tolerated to goal rate - Flush per MD/ HOB over 30 degrees ADDITIONAL RECOMMENDATIONS: 1) Re-calibrated bedscale wt for accurate CBW 2) Wound healing: Add Cristian 1pkt BID w/ improved Tf tolerace + MVI x1 daily 3) Monitor lytes, replete as needed (low Mg, K) 4) Monitor NPO status, ability to resume TF. -> held on and off due to vomiting since 02/02 5) SSI prn resume tube feeds (4) Chronic vegetative state Assessment & Plan: incontinence of urine and stool. can soil dressings. nurses doing great job with monitoring and changing prn (5) Leukocytosis Walter Madera Mar 16, 2019 16:30
--- NOTE | 2019-03-16 18:30 | NUR ---
NURSE NOTES: Pt was suctioned, output of moderate amount clear/white secretions. Pt as repositioned. VS remain stable. No signs/symptoms of any distress noted. Pt is tolerating GT feeding well at goal rate with no residual noted.
--- NOTE | 2019-03-16 18:31 | NUR ---
NURSE NOTES: Received report from JEANNINE Junior during midshift; PT received, responsive to light pain, no tracking with eyes; received on T-piece shiley 6XLT @ 28%, no S/S of respiratory distress noted; received with Gtube feeding Glucerna 1.5 @ 10cc due to regurgitation; all linens and complete bed bath, wound care done prior to midshift endorsement. PT connected to wall suctioned purewick, on p200 mattress; side rails x 2 padded for seizure precautions. PT JOSY PICC w/ double lumens remains infusing TKO, flushes well, patent. Will continue to monitor PT.
--- NOTE | 2019-03-16 19:22 | NUR ---
HAND-OFF: Report and PT given to JEANNINE Elaine.
--- NOTE | 2019-03-16 19:23 | NUR ---
NURSE NOTES: Received patient from JEANNINE Bautista. Will continue plan of care. Addendum: 03/16/19 at 2023 by Argentina Marcano RN Received patient from JEANNINE Suggs. Will continue plan of care.
--- NOTE | 2019-03-16 20:00 | NUR ---
NURSE NOTES: Patient is stable, non-verbal, eyes open to light stimulation. On t-piece Shiley 6 FiO2: 28% and O2 saturating at 94%. On GTube feeding of Glucerna 1.5@ 10ml/hr, no residual noted. GT flushed and patent. Patient shows no regurgitation and no secretions noted at this moment. IV fluids running D5 1/2 NS @ 75ml/hr via right upper arm PICC line. Will continue to monitor.
[2019-03-16] MEDS: Dyna-Hex 2% Top Sol 2oz TOPIC SCH (20:57)
--- NOTE | 2019-03-16 22:00 | NUR ---
NURSE NOTES: No change in condition. Patient turned and repositioned. Suctioning provided. Daughter at bedside.
--- NOTE | 2019-03-16 22:58 | General Progress Note ---
Assessment/Plan Status: stable, progressing Assessment/Plan: Assessment - N/V, periodic, including suctioning of feeds from mouth - suspect due to gastroparesis, possibly also from suctioning reflex - DTR declines GJ conversion. - another message left on her VM - will Rx with reglan, short term - suction gently - Elevated Alk phos / LFT - CT negative - abd U/S negative - check hepatitis serologies - negative - Anemia with OB (-) stools - Resp failure, s/p Trach - dysphagia, s/p PEG --> s/p GT change - OBS - minor GT tract inflammation / infection - poor Px Recommendations - laxative PRN - antibiotic ointment to GT site PRN - Resume feeds to prevent malnutrition - aspiration precautions - elevate HOB - PPI - will d/w DTR again Subjective Allergies: Coded Allergies: CODEINE (Verified Allergy, Unknown, HIVES, 09/15/09) Subjective seen in am d/w staff genetic counselor TF only at low rate another message left for DTR to call me Objective Last 24 Hour Vital Signs Date Time Temp Pulse Resp B/P (MAP) Pulse Ox O2 Delivery O2 Flow Rate FiO2 03/16/19 20:00 6.0 28 03/16/19 20:00 T-piece 6.0 03/16/19 20:00 97.0 59 20 93/43 (60) 96 03/16/19 19:12 62 18 100 T-Piece 6.0 28 65 16 100 03/16/19 19:12 100 T-Piece 6.0 28 03/16/19 19:00 58 14 102/43 (62) 99 03/16/19 18:00 68 20 127/60 (82) 100 03/16/19 17:00 63 23 147/57 (87) 100 03/16/19 16:00 6.0 28 03/16/19 16:00 67 03/16/19 16:00 T-piece 6.0 03/16/19 16:00 97.6 68 25 138/64 (88) 100 03/16/19 15:00 60 20 105/49 (67) 96 03/16/19 14:52 62 18 100 T-Piece 6.0 28 65 16 99 03/16/19 14:00 62 21 92/44 (60) 96 03/16/19 13:43 100 T-Piece 6.0 28 03/16/19 13:00 61 20 110/47 (68) 99 03/16/19 12:00 61 03/16/19 12:00 T-piece 6.0 03/16/19 12:00 97.6 66 20 142/62 (88) 100 03/16/19 12:00 6.0 28 03/16/19 11:23 63 18 100 T-Piece 6.0 28 60 18 99 03/16/19 11:00 62 19 99/48 (65) 98 03/16/19 10:00 64 18 113/49 (70) 99 03/16/19 09:27 69 18 100 T-Piece 6.0 28 68 18 100 03/16/19 09:00 70 21 102/47 (65) 98 03/16/19 09:00 69 22 102/47 (65) 98 03/16/19 08:00 68 03/16/19 08:00 6.0 28 03/16/19 08:00 T-piece 6.0 03/16/19 08:00 97.5 64 21 133/48 (76) 100 03/16/19 08:00 97.8 68 21 133/48 (76) 98 03/16/19 07:03 100 T-Piece 6.0 28 03/16/19 07:03 68 20 100 T-Piece 6.0 28 70 24 100 03/16/19 07:00 68 23 147/65 (92) 100 03/16/19 06:00 70 24 154/56 (88) 100 03/16/19 05:00 71 24 164/59 (94) 100 03/16/19 04:00 94 03/16/19 04:00 T-piece 6.0 03/16/19 04:00 6.0 28 03/16/19 04:00 97.5 71 23 126/49 (74) 100 03/16/19 03:15 71 22 100 T-Piece 6.0 28 68 29 100 03/16/19 03:00 69 24 154/62 (92) 100 03/16/19 02:00 65 23 142/63 (89) 100 03/16/19 01:12 100 T-Piece 6.0 28 03/16/19 01:00 63 23 148/64 (92) 100 03/16/19 00:07 65 19 100 T-Piece 6.0 28 60 21 99 03/16/19 00:00 6.0 28 03/16/19 00:00 60 03/16/19 00:00 T-piece 6.0 03/16/19 00:00 97.5 61 22 94/49 (64) 99 03/15/19 23:00 62 20 128/51 (76) 100 Intake and Output 03/15/19 03/16/19 19:00 07:00 Intake Total 945 ml 1025 ml Output Total 440 ml 200 ml Balance 505 ml 825 ml Free Water 80 ml IV Total 825 ml 825 ml Tube Feeding 120 ml 120 ml Output Urine Total 440 ml 200 ml # Bowel Movements 1 Height (Feet): 5 Height (Inches): 5.00 Weight (Pounds): 132 Objective Debilitated AA woman NCAT (+) trach coarse ronchi RR obese abd, (+) GT no edema Celio Vaughan MD Mar 16, 2019 22:58
[2019-03-17] VITALS (25 sets, daily range): BP systolic 83–161; BP diastolic 43–82
--- NOTE | 2019-03-17 | NUR ---
NURSE NOTES: Vital signs are stable. Patient is resting comfortably. Turned and repositioned. Trach and oral suctioning provided. Daughter at bedside. Will continue plan of care.
[2019-03-17] MEDS: Metoclopramide 10mg/2ml Inj IVP SCH ×4 (01:58→20:01)
--- NOTE | 2019-03-17 02:00 | NUR ---
NURSE NOTES: Vital signs are stable, no changes in patient's condition. IV lines and TKO updated.
[2019-03-17] MEDS: Albuterol/Ipratropium 3ml neb HHN SCH ×6 (03:05→23:58)
--- NOTE | 2019-03-17 04:00 | NUR ---
NURSE NOTES: Vital signs stable. Temp a bit low at 96.4F after bed bath, additional blankets given and will monitor. Bed bath, linen change, oral care and suctioning provided. Turned and repositioned. Bed low, locked and alarm is on.
--- NOTE | 2019-03-17 06:00 | NUR ---
NURSE NOTES: Patient is resting comfortably; showing no signs of pain or distress. No changes in condition at this time.
--- NOTE | 2019-03-17 07:19 | NUR ---
NURSE NOTES: Dr. Vaugahn came to see and assess patient. Patient tolerating GT feeding well and has no regurgitation. Ordered to increase feeding back to Glucerna 1.5 @ 25ml/hr.
--- NOTE | 2019-03-17 07:20 | NUR ---
HAND-OFF: Report given to JEANNINE Rodriguez.
--- NOTE | 2019-03-17 07:32 | Pulmonology Progress Note ---
Assessment/Plan Assessment/Plan Impression: Sepsis syndrome Pneumonia VDRF, Trach, G tube, Hypertension, Cardiac disease, Dementia, Previous CVA, Seizure disorder, Respiratory failure with hypoxia Anemia, worsened ? gib Sacral ulcer renal cyst pulmonary congestion Plan respiratory care as is neb therapy as is and suction ID noted off vent and monitor imaging stable Oxygen saturations adequate Monitor labs and protein levels aspiration precautions as is and elevate head polymicrobial infection noted Patient is a DNR. No CPR. ICU care reviewed medications/laboratory data/nursing notes/ICU care reviewed in detail note reviewed and edited care discussed with RN and RT ICU time spent 40 minutes Subjective ROS Limited/Unobtainable: Yes Allergies: Coded Allergies: CODEINE (Verified Allergy, Unknown, HIVES, 09/15/09) Subjective respiratory care reviewed on atropine and nebs- still requires suctioning ICU care reviewed still requires suctioning bed bound and obtunded findings reviewed and discussed ; imaging noted Objective Last 24 Hour Vital Signs Date Time Temp Pulse Resp B/P (MAP) Pulse Ox O2 Delivery O2 Flow Rate FiO2 03/17/19 06:00 77 25 137/59 (85) 99 03/17/19 05:17 162/63 03/17/19 05:00 69 23 161/69 (99) 100 03/17/19 04:00 6.0 28 03/17/19 04:00 96.4 70 19 160/61 (94) 100 03/17/19 04:00 T-piece 6.0 03/17/19 03:05 65 18 100 T-Piece 6.0 28 64 16 100 03/17/19 03:04 64 03/17/19 03:00 66 20 158/68 (98) 100 03/17/19 02:00 63 14 147/64 (91) 100 03/17/19 01:25 100 T-Piece 6.0 28 03/17/19 01:00 61 14 140/74 (96) 100 03/17/19 00:00 97.2 61 14 135/63 (87) 98 03/17/19 00:00 6.0 28 03/17/19 00:00 T-piece 6.0 03/16/19 23:06 61 03/16/19 23:00 57 18 100 T-Piece 6.0 28 60 16 100 03/16/19 23:00 60 18 117/55 (75) 100 03/16/19 22:00 69 17 127/78 (94) 100 03/16/19 21:00 58 19 119/60 (79) 98 03/16/19 20:00 6.0 28 03/16/19 20:00 T-piece 6.0 03/16/19 20:00 97.0 59 20 93/43 (60) 96 03/16/19 19:27 67 03/16/19 19:12 62 18 100 T-Piece 6.0 28 65 16 100 03/16/19 19:12 100 T-Piece 6.0 28 03/16/19 19:00 58 14 102/43 (62) 99 03/16/19 18:00 68 20 127/60 (82) 100 03/16/19 17:00 63 23 147/57 (87) 100 03/16/19 16:00 6.0 28 03/16/19 16:00 67 03/16/19 16:00 T-piece 6.0 03/16/19 16:00 97.6 68 25 138/64 (88) 100 03/16/19 15:00 60 20 105/49 (67) 96 03/16/19 14:52 62 18 100 T-Piece 6.0 28 65 16 99 03/16/19 14:00 62 21 92/44 (60) 96 03/16/19 13:43 100 T-Piece 6.0 28 03/16/19 13:00 61 20 110/47 (68) 99 03/16/19 12:00 61 03/16/19 12:00 T-piece 6.0 03/16/19 12:00 97.6 66 20 142/62 (88) 100 03/16/19 12:00 6.0 28 03/16/19 11:23 63 18 100 T-Piece 6.0 28 60 18 99 03/16/19 11:00 62 19 99/48 (65) 98 03/16/19 10:00 64 18 113/49 (70) 99 03/16/19 09:27 69 18 100 T-Piece 6.0 28 68 18 100 03/16/19 09:00 70 21 102/47 (65) 98 03/16/19 09:00 69 22 102/47 (65) 98 03/16/19 08:00 68 03/16/19 08:00 6.0 28 03/16/19 08:00 T-piece 6.0 03/16/19 08:00 97.5 64 21 133/48 (76) 100 03/16/19 08:00 97.8 68 21 133/48 (76) 98 Intake and Output 03/16/19 03/17/19 19:00 07:00 Intake Total 975 ml 930 ml Output Total 390 ml 405 ml Balance 585 ml 525 ml Free Water 30 ml 40 ml IV Total 825 ml 750 ml Tube Feeding 120 ml 110 ml Other 30 ml Output Urine Total 390 ml 405 ml # Bowel Movements 1 Objective WDWN NAD contracted off vent reduced breath sounds bilaterally with some rhonchi [id number] without MRG NABS nontender no HSM no CC trace edema nonfocal nonverbal trach and gt reviewed and edited Current Medications Medications (Trade) Dose Ordered Sig/Maicol Route PRN Reason Start Time Stop Time Status Last Admin Dose Admin Albuterol/ Ipratropium (Albuterol/ Ipratropium) 3 ml Q4HRT HHN 03/15/19 03:00 03/20/19 02:59 03/17/19 03:05 Atropine Sulfate (Atropine Opth Adriana) 2 drop TID SL 03/07/19 09:00 04/06/19 08:59 03/16/19 16:46 Bacitracin (Bacitracin 15gm tube) 1 applic THREE TIMES A DAY TOPIC 02/28/19 18:30 03/30/19 18:29 03/16/19 16:46 Chlorhexidine Gluconate (Cesilia-Hex 2%) 1 applic DAILY@1999 TOPIC 03/12/19 20:00 04/11/19 19:59 03/16/19 20:57 Clonidine HCl (Catapres TTS-1) 1 patch QWEEK TDERMAL 03/15/19 09:00 04/14/19 08:59 03/15/19 11:06 Dextrose/Sodium Chloride 1,000 ml @ 75 mls/hr [id number] IV 03/07/19 11:15 04/06/19 11:14 03/16/19 20:58 Famotidine (Pepcid) 20 mg BID GT 03/02/19 18:00 04/01/19 17:59 03/16/19 16:46 Heparin Sodium (Porcine) (Heparin 5000 units/ml) 5,000 units EVERY 12 HOURS SUBQ 03/15/19 21:00 03/23/19 23:14 03/16/19 20:59 Hydralazine HCl (Apresoline) 10 mg Q4H PRN IV For High Blood Pressure 03/12/19 09:00 04/11/19 08:59 03/17/19 05:17 Levetiracetam (Keppra) 750 mg Q12HR GT 03/15/19 21:00 03/23/19 23:29 03/16/19 20:58 Metoclopramide HCl (Reglan) 5 mg Q6H IVP 03/10/19 02:00 03/24/19 01:59 03/17/19 01:58 Potassium Chloride (K-Dur) 20 meq TWICE A DAY GT 03/12/19 09:00 04/11/19 08:59 03/16/19 16:46 Scopolamine (TransDerm Scop 1.5mg/72HR Patch) 1.5 mg Q72H TDERMAL 03/11/19 13:00 04/10/19 12:59 03/14/19 13:58 Amaury Chan MD Mar 17, 2019 07:32
--- NOTE | 2019-03-17 08:00 | NUR ---
NURSE NOTES: Received change of shift report from [place] PAEZ. Pt is awake, eyes open, does not follow commands. On trach, Shiley 6.0 XLT connected to Tpiece at 28%FIO2/6L at 100% O2Sat. NSR on monitoring specialist. IV fluid D5 0.45NS is infusing at 75ml/hour via right upper arm PICC line. GT feed-Glucerna 1.5 is infusing at 25ml/hour; rate was increased per Dr Vaughan's order this morning. No residual or regurgitation is noted. External female catheter is in place, draining cloudy/yellow urine with sediments. Pt is on P200 pressure releasing mattress, bilateral lower extremities elevated/off heels. Left hand, sacrum and bilateral hips/ischiums have dressings per wound-treatment orders, currently dry/intact. Bed is locked, HOB at 30 degrees, three side rails up.
--- NOTE | 2019-03-17 08:00 | General Progress Note ---
Assessment/Plan Problem List: (1) Seizure ICD Codes: R56.9 - Unspecified convulsions SNOMED: 71957773 (2) Anemia ICD Codes: D64.9 - Anemia, unspecified SNOMED: 011604912 Qualifiers: Qualified Codes: D64.9 - Anemia, unspecified (3) Sepsis ICD Codes: A41.9 - Sepsis, unspecified organism SNOMED: 74335099, 712242884 Qualifiers: Qualified Codes: A41.9 - Sepsis, unspecified organism (4) Respiratory failure with hypoxia ICD Codes: J96.91 - Respiratory failure, unspecified with hypoxia SNOMED: 91113154460229452 Qualifiers: Qualified Codes: J96.21 - Acute and chronic respiratory failure with hypoxia (5) HCAP (healthcare-associated pneumonia) ICD Codes: J18.9 - Pneumonia, unspecified organism SNOMED: 089148560, 781393162 (6) Sacral decubitus ulcer ICD Codes: L89.159 - Pressure ulcer of sacral region, unspecified stage SNOMED: 459496006 (7) HTN (hypertension) ICD Codes: I10 - Essential (primary) hypertension SNOMED: 53673100 (8) Chronic vegetative state ICD Codes: R40.3 - Persistent vegetative state SNOMED: 02660976 (9) Chronic respiratory failure ICD Codes: J96.10 - Chronic respiratory failure, unspecified whether with hypoxia or hypercapnia SNOMED: 51820752 (10) Limited mobility ICD Codes: Z74.09 - Other reduced mobility SNOMED: 0693884 Status: stable, progressing Assessment/Plan: vent as needed resp rx gt feeds dtr refusing j tube- aware of concerns about congestion/regurgitation cont sz meds dc planning once tolerating feeds at goal rate Subjective ROS Limited/Unobtainable: No Constitutional: Reports: malaise, weakness HEENT: Reports: no symptoms Cardiovascular: Reports: no symptoms Respiratory: Reports: cough, shortness of breath, sputum Gastrointestinal/Abdominal: Reports: difficulty swallowing Genitourinary: Reports: no symptoms Neurologic/Psychiatric: Reports: pre-existing deficit, seizure Endocrine: Reports: no symptoms Hematologic/Lymphatic: Reports: anemia Allergies: Coded Allergies: CODEINE (Verified Allergy, Unknown, HIVES, 09/15/09) All Systems: reviewed and negative except above Subjective tolerating feeds at a low rate. less congestion. h/h stable. feeds on hold. no residuals. Objective Last 24 Hour Vital Signs Date Time Temp Pulse Resp B/P (MAP) Pulse Ox O2 Delivery O2 Flow Rate FiO2 03/17/19 07:28 100 T-Piece 6.0 28 03/17/19 07:28 76 20 100 T-Piece 6.0 28 79 16 100 03/17/19 07:06 69 23 121/54 (76) 94 03/17/19 07:00 68 20 83/43 (56) 96 03/17/19 07:00 77 25 137/59 (85) 99 03/17/19 06:00 77 25 137/59 (85) 99 03/17/19 05:17 162/63 03/17/19 05:00 69 23 161/69 (99) 100 03/17/19 04:00 6.0 28 03/17/19 04:00 96.4 70 19 160/61 (94) 100 03/17/19 04:00 T-piece 6.0 03/17/19 03:05 65 18 100 T-Piece 6.0 28 64 16 100 03/17/19 03:04 64 03/17/19 03:00 66 20 158/68 (98) 100 03/17/19 02:00 63 14 147/64 (91) 100 03/17/19 01:25 100 T-Piece 6.0 28 03/17/19 01:00 61 14 140/74 (96) 100 03/17/19 00:00 97.2 61 14 135/63 (87) 98 03/17/19 00:00 6.0 28 03/17/19 00:00 T-piece 6.0 03/16/19 23:06 61 03/16/19 23:00 57 18 100 T-Piece 6.0 28 60 16 100 03/16/19 23:00 60 18 117/55 (75) 100 03/16/19 22:00 69 17 127/78 (94) 100 03/16/19 21:00 58 19 119/60 (79) 98 03/16/19 20:00 6.0 28 03/16/19 20:00 T-piece 6.0 03/16/19 20:00 97.0 59 20 93/43 (60) 96 03/16/19 19:27 67 03/16/19 19:12 62 18 100 T-Piece 6.0 28 65 16 100 03/16/19 19:12 100 T-Piece 6.0 28 03/16/19 19:00 58 14 102/43 (62) 99 03/16/19 18:00 68 20 127/60 (82) 100 03/16/19 17:00 63 23 147/57 (87) 100 03/16/19 16:00 6.0 28 03/16/19 16:00 67 03/16/19 16:00 T-piece 6.0 03/16/19 16:00 97.6 68 25 138/64 (88) 100 03/16/19 15:00 60 20 105/49 (67) 96 03/16/19 14:52 62 18 100 T-Piece 6.0 28 65 16 99 03/16/19 14:00 62 21 92/44 (60) 96 03/16/19 13:43 100 T-Piece 6.0 28 03/16/19 13:00 61 20 110/47 (68) 99 03/16/19 12:00 61 03/16/19 12:00 T-piece 6.0 03/16/19 12:00 97.6 66 20 142/62 (88) 100 03/16/19 12:00 6.0 28 03/16/19 11:23 63 18 100 T-Piece 6.0 28 60 18 99 03/16/19 11:00 62 19 99/48 (65) 98 03/16/19 10:00 64 18 113/49 (70) 99 03/16/19 09:27 69 18 100 T-Piece 6.0 28 68 18 100 03/16/19 09:00 70 21 102/47 (65) 98 03/16/19 09:00 69 22 102/47 (65) 98 03/16/19 08:00 68 03/16/19 08:00 6.0 28 03/16/19 08:00 T-piece 6.0 03/16/19 08:00 97.5 64 21 133/48 (76) 100 03/16/19 08:00 97.8 68 21 133/48 (76) 98 Intake and Output 03/16/19 03/17/19 19:00 07:00 Intake Total 975 ml 1015 ml Output Total 390 ml 430 ml Balance 585 ml 585 ml Free Water 30 ml 40 ml IV Total 825 ml 825 ml Tube Feeding 120 ml 120 ml Other 30 ml Output Urine Total 390 ml 430 ml # Bowel Movements 1 Height (Feet): 5 Height (Inches): 5.00 Weight (Pounds): 136 Objective General Appearance: WD/WN, confused. on trach collar Neck: supple Cardiovascular: normal rate, regular rhythm Respiratory/Chest: chest wall non-tender, rhonchi - bilaterally(minimal) Abdomen: normal bowel sounds, non tender, soft, no organomegaly Edema: no edema noted Arm (L), no edema noted Arm (R), no edema noted Leg (L), no edema noted Leg (R), no edema noted Pedal (L), no edema noted Pedal (R), no edema noted Generalized Neurologic: disoriented, unresponsive, aphasia Irvin Beltrán MD Mar 17, 2019 08:00
[2019-03-17] MEDS: levETIRAcetam 500mg/5ml Liquid GT SCH ×2 (08:55→20:51)
[2019-03-17] MEDS: Bacitracin Oint 15gm Tube TOPIC SCH ×3 (08:56→16:58)
[2019-03-17] MEDS: D5 1/2NS 1,000 ML IV SCH (08:57)
[2019-03-17] MEDS: Heparin 5000 units/ml inj SUBQ SCH ×2 (08:59→20:52)
--- NOTE | 2019-03-17 10:00 | NUR ---
NURSE NOTES: Pt was suctioned, output of moderate clear/white secretions. Oral care was done. Pt was repositioned. VS remain stable. GT feeding is infusing at 25ml/hour; no residual noted.
--- NOTE | 2019-03-17 10:33 | Infectious Diseases Prog Note ---
"Assessment/Plan Assessment/Plan antibiotics : none A 1. klebsiella | providencia pneumonia s/p rx 2. respiratory failure 3. hypertension 4. CVA 5. dementia 6. sacral decubitus ulcer 7. rectal VRE colonization P 1. observe off antibiotics 2. dc planned Subjective ROS Limited/Unobtainable: Yes Allergies: Coded Allergies: CODEINE (Verified Allergy, Unknown, HIVES, 09/15/09) Objective Vital Signs Last 24 Hour Vital Signs Date Time Temp Pulse Resp B/P (MAP) Pulse Ox O2 Delivery O2 Flow Rate FiO2 03/17/19 10:00 80 24 121/56 (77) 98 03/17/19 09:00 68 20 121/50 (73) 100 03/17/19 08:00 97.6 84 23 114/76 (89) 99 03/17/19 08:00 78 03/17/19 08:00 T-piece 6.0 03/17/19 08:00 6.0 28 03/17/19 07:28 100 T-Piece 6.0 28 03/17/19 07:28 76 20 100 T-Piece 6.0 28 79 16 100 03/17/19 07:06 69 23 121/54 (76) 94 03/17/19 07:00 68 20 83/43 (56) 96 03/17/19 07:00 77 25 137/59 (85) 99 03/17/19 06:00 77 25 137/59 (85) 99 03/17/19 05:17 162/63 03/17/19 05:00 69 23 161/69 (99) 100 03/17/19 04:00 6.0 28 03/17/19 04:00 96.4 70 19 160/61 (94) 100 03/17/19 04:00 T-piece 6.0 03/17/19 03:05 65 18 100 T-Piece 6.0 28 64 16 100 03/17/19 03:04 64 03/17/19 03:00 66 20 158/68 (98) 100 03/17/19 02:00 63 14 147/64 (91) 100 03/17/19 01:25 100 T-Piece 6.0 28 03/17/19 01:00 61 14 140/74 (96) 100 03/17/19 00:00 97.2 61 14 135/63 (87) 98 03/17/19 00:00 6.0 28 03/17/19 00:00 T-piece 6.0 03/16/19 23:06 61 03/16/19 23:00 57 18 100 T-Piece 6.0 28 60 16 100 03/16/19 23:00 60 18 117/55 (75) 100 03/16/19 22:00 69 17 127/78 (94) 100 03/16/19 21:00 58 19 119/60 (79) 98 03/16/19 20:00 6.0 28 03/16/19 20:00 T-piece 6.0 03/16/19 20:00 97.0 59 20 93/43 (60) 96 03/16/19 19:27 67 03/16/19 19:12 62 18 100 T-Piece 6.0 28 65 16 100 03/16/19 19:12 100 T-Piece 6.0 28 03/16/19 19:00 58 14 102/43 (62) 99 03/16/19 18:00 68 20 127/60 (82) 100 03/16/19 17:00 63 23 147/57 (87) 100 03/16/19 16:00 6.0 28 03/16/19 16:00 67 03/16/19 16:00 T-piece 6.0 03/16/19 16:00 97.6 68 25 138/64 (88) 100 03/16/19 15:00 60 20 105/49 (67) 96 03/16/19 14:52 62 18 100 T-Piece 6.0 28 65 16 99 03/16/19 14:00 62 21 92/44 (60) 96 03/16/19 13:43 100 T-Piece 6.0 28 03/16/19 13:00 61 20 110/47 (68) 99 03/16/19 12:00 61 03/16/19 12:00 T-piece 6.0 03/16/19 12:00 97.6 66 20 142/62 (88) 100 03/16/19 12:00 6.0 28 03/16/19 11:23 63 18 100 T-Piece 6.0 28 60 18 99 03/16/19 11:00 62 19 99/48 (65) 98 Height (Feet): 5 Height (Inches): 5.00 Weight (Pounds): 136 HEENT: status post trach Respiratory/Chest: lungs clear Cardiovascular: normal rate, regular rhythm, no gallop/murmur Abdomen: soft, non tender, other - GT Extremities: no edema, other - right arm PICC Current Medications Medications (Trade) Dose Ordered Sig/Maicol Route PRN Reason Start Time Stop Time Status Last Admin Dose Admin Albuterol/ Ipratropium (Albuterol/ Ipratropium) 3 ml Q4HRT HHN 03/15/19 03:00 03/20/19 02:59 03/17/19 07:27 Atropine Sulfate (Atropine Opth Adriana) 2 drop TID SL 03/07/19 09:00 04/06/19 08:59 03/17/19 08:56 Bacitracin (Bacitracin 15gm tube) 1 applic THREE TIMES A DAY TOPIC 02/28/19 18:30 03/30/19 18:29 03/17/19 08:56 Chlorhexidine Gluconate (Cesilia-Hex 2%) 1 applic DAILY@1999 TOPIC 03/12/19 20:00 04/11/19 19:59 03/16/19 20:57 Clonidine HCl (Catapres TTS-1) 1 patch QWEEK TDERMAL 03/15/19 09:00 04/14/19 08:59 03/15/19 11:06 Dextrose/Sodium Chloride 1,000 ml @ 50 mls/hr Q20H IV 03/17/19 08:30 04/16/19 08:29 03/17/19 08:57 Famotidine (Pepcid) 20 mg BID GT 03/02/19 18:00 04/01/19 17:59 03/17/19 08:55 Heparin Sodium (Porcine) (Heparin 5000 units/ml) 5,000 units EVERY 12 HOURS SUBQ 03/15/19 21:00 03/23/19 23:14 03/17/19 08:59 Hydralazine HCl (Apresoline) 10 mg Q4H PRN IV For High Blood Pressure 03/12/19 09:00 04/11/19 08:59 03/17/19 05:17 Levetiracetam (Keppra) 750 mg Q12HR GT 03/15/19 21:00 03/23/19 23:29 03/17/19 08:55 Metoclopramide HCl (Reglan) 5 mg Q6H IVP 03/10/19 02:00 03/24/19 01:59 03/17/19 08:55 Potassium Chloride (K-Dur) 20 meq TWICE A DAY GT 03/12/19 09:00 04/11/19 08:59 03/17/19 08:55 Scopolamine (TransDerm Scop 1.5mg/72HR Patch) 1.5 mg Q72H TDERMAL 03/11/19 13:00 04/10/19 12:59 03/14/19 13:58 Geovany Yang MD Mar 17, 2019 10:33"
[2019-03-17] MEDS ORDERED: NS 275ml ONE (11:06)
[2019-03-17] MEDS ORDERED: D5 1/2NS 1000ml IV ONE ×3 (11:06→16:27)
[2019-03-17] MEDS ORDERED: Sterile Water Irrig 1000ml IRRIG ONE ×2 (11:07→16:27)
--- NOTE | 2019-03-17 11:30 | Surgery Progress Note ---
Surgery Progress Note Subjective Additional Comments no acute events comfortable no n/v/f/c tolerating tube feeds. trying to get to goal so can d/c possible placement found Objective Last 24 Hour Vital Signs Date Time Temp Pulse Resp B/P (MAP) Pulse Ox O2 Delivery O2 Flow Rate FiO2 03/17/19 11:00 73 24 111/51 (71) 98 03/17/19 10:00 80 24 121/56 (77) 98 03/17/19 09:00 68 20 121/50 (73) 100 03/17/19 08:00 97.6 84 23 114/76 (89) 99 03/17/19 08:00 78 03/17/19 08:00 T-piece 6.0 03/17/19 08:00 6.0 28 03/17/19 07:28 100 T-Piece 6.0 28 03/17/19 07:28 76 20 100 T-Piece 6.0 28 79 16 100 03/17/19 07:06 69 23 121/54 (76) 94 03/17/19 07:00 68 20 83/43 (56) 96 03/17/19 07:00 77 25 137/59 (85) 99 03/17/19 06:00 77 25 137/59 (85) 99 03/17/19 05:17 162/63 03/17/19 05:00 69 23 161/69 (99) 100 03/17/19 04:00 6.0 28 03/17/19 04:00 96.4 70 19 160/61 (94) 100 03/17/19 04:00 T-piece 6.0 03/17/19 03:05 65 18 100 T-Piece 6.0 28 64 16 100 03/17/19 03:04 64 03/17/19 03:00 66 20 158/68 (98) 100 03/17/19 02:00 63 14 147/64 (91) 100 03/17/19 01:25 100 T-Piece 6.0 28 03/17/19 01:00 61 14 140/74 (96) 100 03/17/19 00:00 97.2 61 14 135/63 (87) 98 03/17/19 00:00 6.0 28 03/17/19 00:00 T-piece 6.0 03/16/19 23:06 61 03/16/19 23:00 57 18 100 T-Piece 6.0 28 60 16 100 03/16/19 23:00 60 18 117/55 (75) 100 03/16/19 22:00 69 17 127/78 (94) 100 03/16/19 21:00 58 19 119/60 (79) 98 03/16/19 20:00 6.0 28 03/16/19 20:00 T-piece 6.0 03/16/19 20:00 97.0 59 20 93/43 (60) 96 03/16/19 19:27 67 03/16/19 19:12 62 18 100 T-Piece 6.0 28 65 16 100 03/16/19 19:12 100 T-Piece 6.0 28 03/16/19 19:00 58 14 102/43 (62) 99 03/16/19 18:00 68 20 127/60 (82) 100 03/16/19 17:00 63 23 147/57 (87) 100 03/16/19 16:00 6.0 28 03/16/19 16:00 67 03/16/19 16:00 T-piece 6.0 03/16/19 16:00 97.6 68 25 138/64 (88) 100 03/16/19 15:00 60 20 105/49 (67) 96 03/16/19 14:52 62 18 100 T-Piece 6.0 28 65 16 99 03/16/19 14:00 62 21 92/44 (60) 96 03/16/19 13:43 100 T-Piece 6.0 28 03/16/19 13:00 61 20 110/47 (68) 99 03/16/19 12:00 61 03/16/19 12:00 T-piece 6.0 03/16/19 12:00 97.6 66 20 142/62 (88) 100 03/16/19 12:00 6.0 28 I&O Intake and Output 03/16/19 03/17/19 19:00 07:00 Intake Total 975 ml 1015 ml Output Total 390 ml 430 ml Balance 585 ml 585 ml Free Water 30 ml 40 ml IV Total 825 ml 825 ml Tube Feeding 120 ml 120 ml Other 30 ml Output Urine Total 390 ml 430 ml # Bowel Movements 1 Dressing: other Wound: other Drains: other Cardiovascular: RSR Respiratory: decreased breath sounds Abdomen: soft, present bowel sounds Extremities: no cyanosis, other Plan Problems: (1) Sacral decubitus ulcer Assessment & Plan: This is a 83-year-old female with multiple medical committees that is currently admitted for medical care and management and identified to have multiple wounds requiring care. On admission patient noted to have a resolved sacral decubitus ulcer. Has had prior care and is well-healed at this time. Will ensure it does not open up again. Patient has a right ischial decubitus ulcer that is resolved. Scar intact and well formed. Will monitor to ensure it does not open up again. Patient has a left ischial decubitus ulcer that can be identified to be stage IV with palpable bone that has been resolving as noted by the periwound tissue and scar but open area approximately 1 cm x 1.5 cm few millimeters deep to bone identified. Unsure if this is been to be completely healed prior and has since opened or if has been healing at this level. No foul odor no drainage was unsure local wound care until healed Bilateral heels soft without signs of injury Resolving pressure injury L ischium(L)1.8cm x (W)1cm.Scattered biofilm at base of wound. Edges flat and adherent with surrounding hyperpigmentation. No odor or exudate noted. Sacrum is pale pink with surrounding hyperpigmentation. Hyperpigmentation R ischium with small sheared area centrally.No areas of erythema or exudate noted. Both heels are soft but blanchable. Skin Assessed under collar of trach and no evidence of skin breakdown noted. All wound Tx. are effective and continued as ordered. Pt ahs an APM/Belén mattress overlay and is being repositioned per protocols and per tolerance.No new skin concerns noted. Full thickness pressure injury L Ischium with small amt biofilm (L)1.8cm x (W) 1cm. Surrounding pink hyperpigmentation. No odor or exudate noted. [place] hyperpigmentation from previous wound noted to sacrum. Pt also noted to have Cat 2 Skin Tear dorsal L hand, L 5th metatarsal extending into palm of hand. 80% skin flap in situ.Both heels are dry firm and blanchable. No other skin concerns noted. R ischial wound has resolved. [place] epithelial with surrounding hyperpigmentation. from historical wound. Full thickness pressure injury L ischium. [place] granulation at base of wound. Borders are macerated with Surrounding hyperpigmentation.Small amt non-odorous serous exudate noted.(L)0.7cm x (W)0.8cm. Skin hyperpigmentation from historical wound noted to Sacrum. Small sheared area noted to sacrococcygeal area.(L)0.4cm x (W)0.3cm.Small amt sanguineous exudate noted. Reabsorbed blister with semi-detached dry necrotic cap noted to web space of L thumb and L index fingers extending into palm of L hand. No odor or exudate noted. Skin assessed under tracheal collar and no erythema or evidence of Skin Breakdown noted. NO new skin concerns noted . Good hand hygiene provided to both hands. R hand contracted and fisted. Fingernails trimmed. Wound care provided along with Primary nurse. Wound Tx continued as ordered. New order obtained from to apply Betadine to wound L hand Daily. Tx done as ordered. L hand wrapped with kerlix weaving kerlix between fingers to separate fingers. Moisture Barrier applied to sacrum ,R ischium. Each site covered with Optifoam drsg. Both lower ext washed and moisturized. [place] Skin Barrier applied to both heels.Each heel covered with Optifoam drsgs. Pt positioned with pillows and both heels off-loaded with pillow. Tx.Plan: Apply Betadine to wound L hand. Cover with Gauze and wrap with Kerlix Daily and prn. Cleanse L ischial wound with Saline. Apply Therahoney. Apply Moisture Barrier periwound. Cover with Optifoam drsgevery 3 days and prn. Apply Moisture Barrier Paste to R ischium and Sacrum. Cover each area with Optifoam drsg. Change every 3 days and prn. Apply [place] Skin Barrier to both heels. Cover each heel with Optifoam drsg. Change every 7 days and prn. APM/BELÉN Mattress overlay. Reposition at least every 2hours or as tolerated. Off-load heels with pillow. Cleanse Blister Dorsal and palm of L hand with saline. Versatel One Silicone Contact Layer(Applied). Apply Silvasorb Gel. Wrap with Kerlix Gauze.Change every 7 days and prn. Apply Moisture Barrier to sacrum. Cover with Optifoam drsg. Change every 3 days and prn. Cleanse L ischial wound with saline. Apply Therahoney. Apply Moisture Barrier Paste periwound. Cover with Optifoam drsg. Change every 3 days and prn. Apply [place] Skin Barrier to both heels. Cover each heel with Optifoam drsg. Change every 7 days and prn. APM/BELÉN Mattress overlay. Reposition at least every 2hours or as tolerated. Off-load heels with pillow. Nutritional optimization We will monitor follow with recommendations cont with above upon d/c (2) Sepsis Assessment & Plan: IV abx as per ID trend labs improving wounds unlikely etiology likely respiratory imaging noted and okay abnormal lft's stable PICC on Abx in ICU for desaturation CXR with consolidation cont with frequent suctioning d/c planning possible placement found Evidence of left lower lobe pneumonia, also previously demonstrated Gastrostomy in good position Mild diastasis of the rectus abdominis musculature again demonstrated Retrosacral decubitus changes, better depicted on prior exam which included the pelvis Small hiatal hernia with evidence of trace gastroesophageal reflux Discussed with GI. Recommend GJ family still pending decision (3) Feeding by G-tube Assessment & Plan: DAILY ESTIMATED NEEDS: Needs based on Pulmonary, wounds, bedbound/ 60kg adj 25-28 kcals/kg 3230-7761 total kcals 1.25-2 g protein/kg 75-120 g total protein 25-30 mL/kg 7492-4559 total fluid mLs NUTRITION DIAGNOSIS: * Swallowing difficulty R/T respiratory status as evidenced by pt on T-collar, now back the vent, PEG dep, TF changed to low rate at this time due to episodes of vomiting + residuals. * Increased kcal/prot needs R/T wound healing as evidenced by BL buttocks and sacral wound photos, refer to eval. (CURRENT TF:Glucerna 1.5 @35ml) ENTERAL NUTRITION RECOMMENDATIONS: VITAL AF 1.2 @ 55ml/hr x 24 hrs to provide 1320ml, 1584kcal, 99g prot, 1060ml free water - Once medically appropriate to resume TF, rec to initiate elemental and carb control formula of Vital 1.2 for possible improved tolerance - Initiate VITAL 1.2 @ 25ml/hr x 6hrs, advance 10ml q 4-6 hrs as tolerated to goal rate - Flush per MD/ HOB over 30 degrees ADDITIONAL RECOMMENDATIONS: 1) Re-calibrated bedscale wt for accurate CBW 2) Wound healing: Add Cristian 1pkt BID w/ improved Tf tolerace + MVI x1 daily 3) Monitor lytes, replete as needed (low Mg, K) 4) Monitor NPO status, ability to resume TF. -> held on and off due to vomiting since 02/02 5) SSI prn resume tube feeds (4) Chronic vegetative state Assessment & Plan: incontinence of urine and stool. can soil dressings. nurses doing great job with monitoring and changing prn (5) Leukocytosis Walter Madera Mar 17, 2019 11:30
--- NOTE | 2019-03-17 12:00 | NUR ---
NURSE NOTES: Pt is tolerating GT feeding well, no residual noted. VS remain stable. NSR on satellite project site monitor. Pt is afebrile. Pt was suctioned. Oral care was done. Pt has been repositioned.
[2019-03-17] MEDS: TransDerm Scop 1.5mg/72HR Patch TDERMAL SCH (12:04)
--- NOTE | 2019-03-17 13:54 | Nephrology Progress Note ---
Assessment/Plan Problem List: (1) Acute renal failure (ARF) Assessment: Cr stable (2) Chronic respiratory failure (3) Anemia (4) Sepsis Assessment Acute renal failure Respiratory failure - Trach Low Mag- Low k , Low Na Anemia UTI / Sepsis Proteinuria / HypoAlbuminemia high Trigs Sz decubs bed bound DNR Plan lab reviewed bolus Albumin as needed K and Mag and Phos supplement as needed Hydrate as needed Urine studies avoid Nephrotoxics mag K Phos supplements as needed monitor renal parameters Subjective ROS Limited/Unobtainable: Yes Objective Objective Last 24 Hour Vital Signs Date Time Temp Pulse Resp B/P (MAP) Pulse Ox O2 Delivery O2 Flow Rate FiO2 03/17/19 13:44 98 T-Piece 6.0 28 03/17/19 13:00 64 20 90/47 (61) 100 03/17/19 12:00 6.0 28 03/17/19 12:00 67 21 118/50 (72) 100 03/17/19 12:00 T-piece 6.0 03/17/19 12:00 67 03/17/19 11:39 70 18 100 T-Piece 6.0 28 67 20 99 03/17/19 11:00 73 24 111/51 (71) 98 03/17/19 10:00 80 24 121/56 (77) 98 03/17/19 09:00 68 20 121/50 (73) 100 03/17/19 08:00 97.6 84 23 114/76 (89) 99 03/17/19 08:00 78 03/17/19 08:00 T-piece 6.0 03/17/19 08:00 6.0 28 03/17/19 07:28 100 T-Piece 6.0 28 03/17/19 07:28 76 20 100 T-Piece 6.0 28 79 16 100 03/17/19 07:06 69 23 121/54 (76) 94 03/17/19 07:00 68 20 83/43 (56) 96 03/17/19 07:00 77 25 137/59 (85) 99 03/17/19 06:00 77 25 137/59 (85) 99 03/17/19 05:17 162/63 03/17/19 05:00 69 23 161/69 (99) 100 03/17/19 04:00 6.0 28 03/17/19 04:00 96.4 70 19 160/61 (94) 100 03/17/19 04:00 T-piece 6.0 03/17/19 03:05 65 18 100 T-Piece 6.0 28 64 16 100 03/17/19 03:04 64 03/17/19 03:00 66 20 158/68 (98) 100 03/17/19 02:00 63 14 147/64 (91) 100 03/17/19 01:25 100 T-Piece 6.0 28 03/17/19 01:00 61 14 140/74 (96) 100 03/17/19 00:00 97.2 61 14 135/63 (87) 98 03/17/19 00:00 6.0 28 03/17/19 00:00 T-piece 6.0 03/16/19 23:06 61 03/16/19 23:00 57 18 100 T-Piece 6.0 28 60 16 100 03/16/19 23:00 60 18 117/55 (75) 100 03/16/19 22:00 69 17 127/78 (94) 100 03/16/19 21:00 58 19 119/60 (79) 98 03/16/19 20:00 6.0 28 03/16/19 20:00 T-piece 6.0 03/16/19 20:00 97.0 59 20 93/43 (60) 96 03/16/19 19:27 67 03/16/19 19:12 62 18 100 T-Piece 6.0 28 65 16 100 03/16/19 19:12 100 T-Piece 6.0 28 03/16/19 19:00 58 14 102/43 (62) 99 03/16/19 18:00 68 20 127/60 (82) 100 03/16/19 17:00 63 23 147/57 (87) 100 03/16/19 16:00 6.0 28 03/16/19 16:00 67 03/16/19 16:00 T-piece 6.0 03/16/19 16:00 97.6 68 25 138/64 (88) 100 03/16/19 15:00 60 20 105/49 (67) 96 03/16/19 14:52 62 18 100 T-Piece 6.0 28 65 16 99 03/16/19 14:00 62 21 92/44 (60) 96 Intake and Output 03/16/19 03/17/19 19:00 07:00 Intake Total 975 ml 1015 ml Output Total 390 ml 430 ml Balance 585 ml 585 ml Free Water 30 ml 40 ml IV Total 825 ml 825 ml Tube Feeding 120 ml 120 ml Other 30 ml Output Urine Total 390 ml 430 ml # Bowel Movements 1 Height (Feet): 5 Height (Inches): 5.00 Weight (Pounds): 136 General Appearance: no apparent distress EENT: other - trach Respiratory/Chest: decreased breath sounds Abdomen: distended Objective no change Eric Cortez MD Mar 17, 2019 13:54
--- NOTE | 2019-03-17 14:00 | NUR ---
NURSE NOTES: Pt is asleep in no apparent distress. Pt was suctioned, output of moderate amount of secretion. VS remain stable. Pt is tolerating GT feeding well, no residual or regurgitation noted.
--- NOTE | 2019-03-17 16:15 | NUR ---
NURSE NOTES: VS remain stable. Pt is afebrile. GT feeding is infusing at 25ml/hour goal rate, pt is tolerating well with no noted residual. Pt was suctioned, oral care done. Pt was repositioned.
--- NOTE | 2019-03-17 18:00 | NUR ---
NURSE NOTES: Pt was cleaned, wound dressing changed, BM x1 changed. Pt was suctioned, oral care done. VS remain stable. Pt was repositioned, bilateral extremities elevated/off heels.
--- NOTE | 2019-03-17 18:40 | General Progress Note ---
Assessment/Plan Status: stable, progressing Assessment/Plan: Assessment - N/V, periodic, including suctioning of feeds from mouth - suspect due to gastroparesis, possibly also from suctioning reflex - DTR declines GJ conversion. - another message left on her VM - will Rx with reglan, short term - suction gently - Elevated Alk phos / LFT - CT negative - abd U/S negative - check hepatitis serologies - negative - Anemia with OB (-) stools - Resp failure, s/p Trach - dysphagia, s/p PEG --> s/p GT change - OBS - minor GT tract inflammation / infection - poor Px Recommendations - laxative PRN - antibiotic ointment to GT site PRN - advance TF slowly - aspiration precautions - elevate HOB - PPI - will d/w DTR again Subjective Allergies: Coded Allergies: CODEINE (Verified Allergy, Unknown, HIVES, 09/15/09) Subjective seen in am d/w kennel staff member TF only at low rate message left for DTR last night to call me advised MANAGER INTEL to call me if daughter arrives Objective Last 24 Hour Vital Signs Date Time Temp Pulse Resp B/P (MAP) Pulse Ox O2 Delivery O2 Flow Rate FiO2 03/17/19 18:00 97.6 66 23 106/49 (68) 100 03/17/19 17:00 77 19 100/48 (65) 100 03/17/19 16:00 6.0 28 03/17/19 16:00 61 19 90/47 (61) 98 03/17/19 16:00 T-piece 6.0 03/17/19 16:00 62 03/17/19 15:58 66 16 100 T-Piece 6.0 28 61 19 98 03/17/19 15:00 82 25 146/82 (103) 99 03/17/19 14:00 97.6 75 13 121/65 (83) 98 03/17/19 13:44 98 T-Piece 6.0 28 03/17/19 13:00 64 20 90/47 (61) 100 03/17/19 12:00 6.0 28 03/17/19 12:00 67 21 118/50 (72) 100 03/17/19 12:00 T-piece 6.0 03/17/19 12:00 67 03/17/19 11:39 70 18 100 T-Piece 6.0 28 67 20 99 03/17/19 11:00 73 24 111/51 (71) 98 03/17/19 10:00 80 24 121/56 (77) 98 03/17/19 09:00 68 20 121/50 (73) 100 03/17/19 08:00 97.6 84 23 114/76 (89) 99 03/17/19 08:00 78 03/17/19 08:00 T-piece 6.0 03/17/19 08:00 6.0 28 03/17/19 07:28 100 T-Piece 6.0 28 03/17/19 07:28 76 20 100 T-Piece 6.0 28 79 16 100 03/17/19 07:06 69 23 121/54 (76) 94 03/17/19 07:00 68 20 83/43 (56) 96 03/17/19 07:00 77 25 137/59 (85) 99 03/17/19 06:00 77 25 137/59 (85) 99 03/17/19 05:17 162/63 03/17/19 05:00 69 23 161/69 (99) 100 03/17/19 04:00 6.0 28 03/17/19 04:00 96.4 70 19 160/61 (94) 100 03/17/19 04:00 T-piece 6.0 03/17/19 03:05 65 18 100 T-Piece 6.0 28 64 16 100 03/17/19 03:04 64 03/17/19 03:00 66 20 158/68 (98) 100 03/17/19 02:00 63 14 147/64 (91) 100 03/17/19 01:25 100 T-Piece 6.0 28 03/17/19 01:00 61 14 140/74 (96) 100 03/17/19 00:00 97.2 61 14 135/63 (87) 98 03/17/19 00:00 6.0 28 03/17/19 00:00 T-piece 6.0 03/16/19 23:06 61 03/16/19 23:00 57 18 100 T-Piece 6.0 28 60 16 100 03/16/19 23:00 60 18 117/55 (75) 100 03/16/19 22:00 69 17 127/78 (94) 100 03/16/19 21:00 58 19 119/60 (79) 98 03/16/19 20:00 6.0 28 03/16/19 20:00 T-piece 6.0 03/16/19 20:00 97.0 59 20 93/43 (60) 96 03/16/19 19:27 67 03/16/19 19:12 62 18 100 T-Piece 6.0 28 65 16 100 03/16/19 19:12 100 T-Piece 6.0 28 03/16/19 19:00 58 14 102/43 (62) 99 Intake and Output 03/16/19 03/17/19 19:00 07:00 Intake Total 975 ml 1015 ml Output Total 390 ml 430 ml Balance 585 ml 585 ml Free Water 30 ml 40 ml IV Total 825 ml 825 ml Tube Feeding 120 ml 120 ml Other 30 ml Output Urine Total 390 ml 430 ml # Bowel Movements 1 Height (Feet): 5 Height (Inches): 5.00 Weight (Pounds): 136 Objective Debilitated AA woman NCAT (+) trach coarse ronchi RR obese abd, (+) GT no edema Celio Vaughan MD Mar 17, 2019 18:40
--- NOTE | 2019-03-17 19:00 | NUR ---
NURSE NOTES: Spoke with pt's daughter at bedside and informed her regarding calling Dr Vaughan back per MD request. Pt's daughter stated "I haven't made a decision yet on J-Tube. I am waiting to see how my mother tolerates the current GT feeding at this new rate of 25m/hour". Pt's daughter was updated on pt's current condition, and plan for DC per Dr Beltrán once pt tolerated GT feeding at goal rate. Endorsed to Onel PAEZ.
--- NOTE | 2019-03-17 19:30 | NUR ---
HAND-OFF: Report given to Onel PAEZ. Endorsed plan of care.
[2019-03-17] MEDS: Dyna-Hex 2% Top Sol 2oz TOPIC SCH (20:01)
--- NOTE | 2019-03-17 20:24 | NUR ---
NURSE NOTES: PT'S DAUGHTER STAYED AT BED SIDE, PATIENT ASLEEP STATUS AT 1935PM. PATIENT RESPONSE TO NAME, OPEN EYES, DID NOT FOLLOW COMMANDS, RESPIRATION REGULAR, ON TRACH, FIO2 28% T- PIECE, O2 SATURATION OVER 98% NOTED, ABDOMEN SOFT, NO BM STATUS, G TUBE INTACT AND PATENT, NO LEAKED STATUS, ONGOING GLUCERNA 1.5 AT 25ML/HR, NO RESIDUE NOTED, NO N/V NOTED, KEPT HOB 30 DEGREES AND ASPIRATION PRECAUTION, VOID WITH PURE WICK, YELLOW URINE OUTED, PICC LINE TO RIGHT UPPER ARM, INTACT AND PATENT, ONGOING IV FLUID D5 1/2NS AT 50ML/HR VIA PICC LINE, ON P200 BED, KEPT SZ AND FALL PRECAUTION, MADE LOWER BED POSITION, ON BED ALARM AND LOCKED, PROVIDED CALL LIGHT WITHIN REACH BUT UNABLE TO USE STATUS, KEPT CONTINUE PLAN OF CARE AT 2000PM. APPLIED BARE HUGGER DUE TO TEMP 97.6F AND COLD SKIN, WILL CONTINUE TO MONITOR.
--- NOTE | 2019-03-17 22:09 | NUR ---
NURSE NOTES: PATIENT ASLEEP STATUS, REPOSITIONED AND ORAL CARE WAS DONE, NO PAIN OR DISTRESS NOTED.
--- NOTE | 2019-03-17 22:23 | NUR ---
NURSE NOTES: PT'S DAUGHTER LEFT.
[2019-03-18] VITALS (27 sets, daily range): BP systolic 81–137; BP diastolic 37–84
--- NOTE | 2019-03-18 00:37 | NUR ---
NURSE NOTES: NO PAIN OR DISTRESS NOTED AT THIS TIME, WILL CONTINUE PLAN OF CARE.
[2019-03-18] MEDS: Metoclopramide 10mg/2ml Inj IVP SCH ×4 (01:32→20:09)
--- NOTE | 2019-03-18 02:03 | NUR ---
NURSE NOTES: REPOSITIONED, ASLEEP STATUS.
[2019-03-18] MEDS: Albuterol/Ipratropium 3ml neb HHN SCH ×6 (03:59→22:36)
--- NOTE | 2019-03-18 04:20 | NUR ---
NURSE NOTES: MORNING CARE AND ORAL CARE WAS DONE, NO DISTRESS NOTED WHILE CARE.
[2019-03-18] MEDS: D5 1/2NS 1,000 ML IV SCH (04:25)
[2019-03-18 05:06] LABS: BASOPHILS % (AUTO) 0.8 % (0.0-2.0); EOSINOPHILS % (AUTO) 5.9 % (0.0-3.0); HEMATOCRIT 25.9 % (37.0-47.0); HEMOGLOBIN 8.3 G/DL (12.0-16.0); LYMPHOCYTES % (AUTO) 29.6 % (20.0-45.0); MEAN CORPUSCULAR VOLUME 85 FL (80-99); NEUTROPHILS % (AUTO) 56.7 % (45.0-75.0); PLATELET COUNT 177 K/UL (150-450); RED BLOOD COUNT 3.04 M/UL (4.20-5.40); RED CELL DISTRIBUTION WIDTH 16.2 % (11.6-14.8); WHITE BLOOD COUNT 5.7 K/UL (4.8-10.8)
[2019-03-18 05:36] LABS: ALANINE AMINOTRANSFERASE 30 U/L (12-78); ALBUMIN 2.4 G/DL (3.4-5.0); ALBUMIN/GLOBULIN RATIO 0.5 (1.0-2.7); ALKALINE PHOSPHATASE 112 U/L (46-116); ANION GAP 2 mmol/L (5-15); ASPARTATE AMINO TRANSFERASE 21 U/L (15-37); BILIRUBIN,TOTAL 0.2 MG/DL (0.2-1.0); BLOOD UREA NITROGEN 11 mg/dL (7-18); CALCIUM 8.9 MG/DL (8.5-10.1); CARBON DIOXIDE 31 MMOL/L (21-32); CHLORIDE 109 MMOL/L (98-107); CREATININE 0.9 MG/DL (0.55-1.30); POTASSIUM 4.5 MMOL/L (3.5-5.1); SODIUM 142 MMOL/L (136-145)
--- NOTE | 2019-03-18 06:48 | NUR ---
NURSE NOTES: SEEN THE PATIENT BY DR. HER AT 0645AM.
--- NOTE | 2019-03-18 06:54 | NUR ---
NURSE NOTES: SEEN THE PATIENT BY DR. CABA.
--- NOTE | 2019-03-18 07:04 | General Progress Note ---
Assessment/Plan Problem List: (1) Seizure ICD Codes: R56.9 - Unspecified convulsions SNOMED: 66217058 (2) Anemia ICD Codes: D64.9 - Anemia, unspecified SNOMED: 609760400 Qualifiers: Qualified Codes: D64.9 - Anemia, unspecified (3) Sepsis ICD Codes: A41.9 - Sepsis, unspecified organism SNOMED: 90580465, 371579742 Qualifiers: Qualified Codes: A41.9 - Sepsis, unspecified organism (4) Respiratory failure with hypoxia ICD Codes: J96.91 - Respiratory failure, unspecified with hypoxia SNOMED: 22634996100501867 Qualifiers: Qualified Codes: J96.21 - Acute and chronic respiratory failure with hypoxia (5) HCAP (healthcare-associated pneumonia) ICD Codes: J18.9 - Pneumonia, unspecified organism SNOMED: 885180384, 780846134 (6) Sacral decubitus ulcer ICD Codes: L89.159 - Pressure ulcer of sacral region, unspecified stage SNOMED: 369476916 (7) HTN (hypertension) ICD Codes: I10 - Essential (primary) hypertension SNOMED: 62651440 (8) Chronic vegetative state ICD Codes: R40.3 - Persistent vegetative state SNOMED: 42670967 (9) Chronic respiratory failure ICD Codes: J96.10 - Chronic respiratory failure, unspecified whether with hypoxia or hypercapnia SNOMED: 45593217 (10) Limited mobility ICD Codes: Z74.09 - Other reduced mobility SNOMED: 5155669 Status: stable, progressing Assessment/Plan: vent as needed resp rx gt feeds dtr refusing j tube- aware of concerns about congestion/regurgitation cont sz meds dc clonidine patch- bp low feeds to be increased to 50cc/hr this am dc planning once tolerating feeds at goal rate Subjective ROS Limited/Unobtainable: Yes Constitutional: Reports: malaise, weakness HEENT: Reports: no symptoms Cardiovascular: Reports: no symptoms Respiratory: Reports: cough, shortness of breath, sputum Gastrointestinal/Abdominal: Reports: difficulty swallowing Genitourinary: Reports: no symptoms Neurologic/Psychiatric: Reports: pre-existing deficit Endocrine: Reports: no symptoms Hematologic/Lymphatic: Reports: no symptoms Allergies: Coded Allergies: CODEINE (Verified Allergy, Unknown, HIVES, 09/15/09) All Systems: reviewed and negative except above Subjective tolerating feeds at a low rate(25cc/hr). less congestion. h/h stable. feeds on hold. no residuals. bp on the low side Objective Last 24 Hour Vital Signs Date Time Temp Pulse Resp B/P (MAP) Pulse Ox O2 Delivery O2 Flow Rate FiO2 03/18/19 06:03 74 25 86/43 (57) 99 03/18/19 06:00 74 25 84/39 (54) 99 03/18/19 05:00 88 21 124/60 (81) 99 03/18/19 04:00 6.0 28 03/18/19 04:00 T-piece 6.0 03/18/19 04:00 97.5 71 22 107/46 (66) 100 03/18/19 03:59 73 23 100 T-Piece 6.0 28 71 22 100 03/18/19 03:04 72 03/18/19 03:00 72 23 113/51 (71) 100 03/18/19 02:00 70 22 115/54 (74) 100 03/18/19 01:00 64 22 98/46 (63) 100 03/18/19 01:00 100 T-Piece 6.0 28 03/18/19 00:00 97.6 63 25 102/49 (66) 98 03/18/19 00:00 T-piece 6.0 03/18/19 00:00 6.0 28 03/17/19 23:58 68 19 100 T-Piece 6.0 28 66 26 97 03/17/19 23:17 63 03/17/19 23:00 64 21 91/45 (60) 100 03/17/19 22:00 61 21 113/52 (72) 99 03/17/19 21:00 63 19 95/50 (65) 100 03/17/19 20:00 6.0 28 03/17/19 20:00 T-piece 6.0 03/17/19 20:00 97.6 63 19 95/51 (66) 98 03/17/19 19:32 97 T-Piece 6.0 28 03/17/19 19:30 65 19 100 T-Piece 6.0 28 64 19 97 03/17/19 19:27 64 03/17/19 19:00 63 18 105/55 (72) 99 03/17/19 18:00 97.6 66 23 106/49 (68) 100 03/17/19 17:00 77 19 100/48 (65) 100 03/17/19 16:00 6.0 28 03/17/19 16:00 61 19 90/47 (61) 98 03/17/19 16:00 T-piece 6.0 03/17/19 16:00 62 03/17/19 15:58 66 16 100 T-Piece 6.0 28 61 19 98 03/17/19 15:00 82 25 146/82 (103) 99 03/17/19 14:00 97.6 75 13 121/65 (83) 98 03/17/19 13:44 98 T-Piece 6.0 28 03/17/19 13:00 64 20 90/47 (61) 100 03/17/19 12:00 6.0 28 03/17/19 12:00 67 21 118/50 (72) 100 03/17/19 12:00 T-piece 6.0 03/17/19 12:00 67 03/17/19 11:39 70 18 100 T-Piece 6.0 28 67 20 99 03/17/19 11:00 73 24 111/51 (71) 98 03/17/19 10:00 80 24 121/56 (77) 98 03/17/19 09:00 68 20 121/50 (73) 100 03/17/19 08:00 97.6 84 23 114/76 (89) 99 03/17/19 08:00 78 03/17/19 08:00 T-piece 6.0 03/17/19 08:00 6.0 28 03/17/19 07:28 100 T-Piece 6.0 28 03/17/19 07:28 76 20 100 T-Piece 6.0 28 79 16 100 03/17/19 07:06 69 23 121/54 (76) 94 Intake and Output 03/17/19 03/18/19 18:59 06:59 Intake Total 1050 ml 960 ml Output Total 335 ml 420 ml Balance 715 ml 540 ml Free Water 90 ml IV Total 675 ml 600 ml Tube Feeding 285 ml 300 ml Other 60 ml Output Urine Total 335 ml 420 ml # Bowel Movements 2 Laboratory Tests 03/18/19 03:48: White Blood Count 5.7, Red Blood Count 3.04L, Hemoglobin 8.3L, Hematocrit 25.9L , Mean Corpuscular Volume 85, Mean Corpuscular Hemoglobin 27.3, Mean Corpuscular Hemoglobin Concent 32.0, Red Cell Distribution Width 16.2H, Platelet Count 177, Mean Platelet Volume 5.9L, Neutrophils (%) (Auto) 56.7, Lymphocytes (%) (Auto) 29.6, Monocytes (%) (Auto) 7.0, Eosinophils (%) (Auto) 5.9H, Basophils (%) (Auto) 0.8, Sodium Level 142, Potassium Level 4.5, Chloride Level 109H, Carbon Dioxide Level 31, Anion Gap 2L, Blood Urea Nitrogen 11, Creatinine 0.9, Estimat Glomerular Filtration Rate , Glucose Level 83, Calcium Level 8.9, Total Bilirubin 0.2, Aspartate Amino Transf (AST/SGOT) 21, Alanine Aminotransferase (ALT/SGPT) 30, Alkaline Phosphatase 112, Total Protein 7.1, Albumin 2.4L, Globulin 4.7, Albumin/Globulin Ratio 0.5L Height (Feet): 5 Height (Inches): 5.00 Weight (Pounds): 125 Objective General Appearance: WD/WN, confused. on trach collar Neck: supple Cardiovascular: normal rate, regular rhythm Respiratory/Chest: chest wall non-tender, rhonchi - bilaterally(minimal) Abdomen: normal bowel sounds, non tender, soft, no organomegaly Edema: no edema noted Arm (L), no edema noted Arm (R), no edema noted Leg (L), no edema noted Leg (R), no edema noted Pedal (L), no edema noted Pedal (R), no edema noted Generalized Neurologic: disoriented, unresponsive, aphasia Irvin Beltrán MD Mar 18, 2019 07:04
--- NOTE | 2019-03-18 07:05 | NUR ---
NURSE NOTES: RECEIVED PATIENT FROM Renee LIRIANO RN. PATIENT IS LYING IN BED ASLEEP. HOOKED TO [employer] OFFICER. TRACH ON SHILEY 6 XLT, TPIECE AT 28%, 6L. NO SIGNS OF DISTRESS OF THE MOMENT. GT TUBE IN PLACE, DRY AND INTACT DRESSING. RUNNING GTF GLUCERNA 1.5 AT 35ML/HR GOAL AT 50ML/HR. PUREWICK NOTED. SKIN ALTERATION NOTED. ON OVERLAY MATTRESS. WITH R UA PICC LINE, DRESSING DRY AND INTACT. CALL LIGHT WITHIN REACH. BED AT LOWEST POSITION. SIRE RAILS UP AND PADDED. WILL CONTINUE TO MONITOR.
[2019-03-18] MEDS: levETIRAcetam 500mg/5ml Liquid GT SCH ×2 (08:25→20:09)
[2019-03-18] MEDS: Heparin 5000 units/ml inj SUBQ SCH ×2 (08:26→20:10)
[2019-03-18] MEDS: Bacitracin Oint 15gm Tube TOPIC SCH ×3 (08:27→17:16)
--- NOTE | 2019-03-18 09:45 | NUR ---
NURSE NOTES: SEEN AND EXAMINED BY DR RAYMOND. NNO. WILL CONTINUE TO MONITOR.
--- NOTE | 2019-03-18 10:30 | NUR ---
NURSE NOTES: Pt received from JEANNINE Gilmore without cardiopulmonary distress noted. Pt is asleep in bed, does not respond to voice or open eyes spontaneously, pupils are equal and round 4mm and sluggish to light reaction, pt does not respond to shaking or light pain but opens eyes and exhibits intact gag response when suctioned endotracheally. Discussed with Aneta from pharmacy side effects of scopolamine patch that the pt has been using including drowsiness d/t anticholinergic effects of this drug. Pt is SR to ice scraper. radial and dorsalis pedis pulses palpable bilaterally. cap refill less than 3 sec. Pt noted with T-piece on 6L O2 with FiO2 28%. lung sounds noted diminished in lower bilateral lobes and with mild crackles in bilateral upper lobes. No secretions noted in t-piece at this time. GT noted with dry and intact dressing running Glucerna 1.5 at 35 cc/hr with no residuals at this time and no nausea or vomiting. Purewick noted draining yellow urine. Skin alterations ntoed. Pt has a JOSY PICC with dry and intact dressing running D 5 1/2 NS at 50cc/hr. Bed in lowest position, alarm on, side rails up x 2 and padded per seizure precaution, call light within reach, will continue to monitor. Addendum: 03/18/19 at 1942 by Sandy Chi RN Late entry: T piece jn 6 XLT
--- NOTE | 2019-03-18 10:30 | NUR ---
HAND-OFF: Report given to Roldan Steiner RN.
--- NOTE | 2019-03-18 10:35 | NUR ---
NURSE NOTES: Left message for Dr Beltrán about pt's neuro status and let him know pt is wearing scopolamine patch at this time. No new orders at this time. Addendum: 03/18/19 at 1220 by Sandy Chi RN Amendment: awaiting call back for new orders
--- NOTE | 2019-03-18 11:36 | Pulmonolgy Critical Care Note ---
Critical Care - Asmt/Plan Assessment/Plan: Pulmonary CCM Progress Note Assessment/Plan Impression: Sepsis syndrome Pneumonia, KPC VDRF, Trach, G tube, Hypertension, Cardiac disease, Dementia, Previous CVA, Seizure disorder, Respiratory failure with hypoxia, on TC Anemia Sacral ulcer renal cyst pulmonary congestion Plan respiratory care to continue as is, TC as tolerated atropine neb therapy SNF meds as is off vent as able and has been off for several day Oxygen as needed Monitor labs daily changes noted and reviewed feeds as tolerated monitor albumin levels and provide protein and nutrition elevate head aspiration precautions Patient is a DNR. No CPR. ICU care reviewed medications/laboratory data/nursing notes/ICU care reviewed in detail note reviewed and edited care discussed with RN and RT ICU time spent 45 minutes Subjective Allergies: Coded Allergies: CODEINE (Verified Allergy, Unknown, HIVES, 09/15/09) Subjective respiratory care noted congestion- improved with atropine ICU care reviewed supportive care noted and reviewed RT care reviewed overnight care noted findings reviewed and discussed in detail with nursing and RT seen earlier this am Objective Vital Signs Noted Objective WDWN NAD contracted off vent reduced breath sounds bilaterally with some rhonchi; no wheeze [id number] without MRG NABS nontender no HSM no CC minimal nonfocal nonverbal trach and gt reviewed and edited Laboratory Tests Noted Critical Care - Objective Last 24 Hour Vital Signs Date Time Temp Pulse Resp B/P (MAP) Pulse Ox O2 Delivery O2 Flow Rate FiO2 03/18/19 11:00 81 23 81/37 (52) 100 03/18/19 10:39 78 22 100 T-Piece 6.0 28 80 22 100 03/18/19 10:00 83 27 122/52 (75) 100 03/18/19 09:00 96 28 124/58 (80) 100 03/18/19 08:00 T-piece 6.0 03/18/19 08:00 81 03/18/19 08:00 6.0 28 03/18/19 08:00 98.2 81 28 95/39 (57) 100 03/18/19 07:25 100 T-Piece 6.0 28 03/18/19 07:23 80 18 100 T-Piece 6.0 28 82 18 100 03/18/19 07:02 74 26 91/51 (64) 99 03/18/19 06:03 74 25 86/43 (57) 99 03/18/19 06:00 74 25 84/39 (54) 99 03/18/19 05:00 88 21 124/60 (81) 99 03/18/19 04:00 6.0 28 03/18/19 04:00 T-piece 6.0 03/18/19 04:00 97.5 71 22 107/46 (66) 100 03/18/19 03:59 73 23 100 T-Piece 6.0 28 71 22 100 03/18/19 03:04 72 03/18/19 03:00 72 23 113/51 (71) 100 03/18/19 02:00 70 22 115/54 (74) 100 03/18/19 01:00 64 22 98/46 (63) 100 03/18/19 01:00 100 T-Piece 6.0 28 03/18/19 00:00 97.6 63 25 102/49 (66) 98 03/18/19 00:00 T-piece 6.0 03/18/19 00:00 6.0 28 03/17/19 23:58 68 19 100 T-Piece 6.0 28 66 26 97 03/17/19 23:17 63 03/17/19 23:00 64 21 91/45 (60) 100 03/17/19 22:00 61 21 113/52 (72) 99 03/17/19 21:00 63 19 95/50 (65) 100 03/17/19 20:00 6.0 28 03/17/19 20:00 T-piece 6.0 03/17/19 20:00 97.6 63 19 95/51 (66) 98 03/17/19 19:32 97 T-Piece 6.0 28 03/17/19 19:30 65 19 100 T-Piece 6.0 28 64 19 97 03/17/19 19:27 64 03/17/19 19:00 63 18 105/55 (72) 99 03/17/19 18:00 97.6 66 23 106/49 (68) 100 03/17/19 17:00 77 19 100/48 (65) 100 03/17/19 16:00 6.0 28 03/17/19 16:00 61 19 90/47 (61) 98 03/17/19 16:00 T-piece 6.0 03/17/19 16:00 62 03/17/19 15:58 66 16 100 T-Piece 6.0 28 61 19 98 03/17/19 15:00 82 25 146/82 (103) 99 03/17/19 14:00 97.6 75 13 121/65 (83) 98 03/17/19 13:44 98 T-Piece 6.0 28 03/17/19 13:00 64 20 90/47 (61) 100 03/17/19 12:00 6.0 28 03/17/19 12:00 67 21 118/50 (72) 100 03/17/19 12:00 T-piece 6.0 03/17/19 12:00 67 03/17/19 11:39 70 18 100 T-Piece 6.0 28 67 20 99 Critical Care - Subjective FI02: 28 Vent Support Mode: CPAP Vent Tidal Volume: 450 Sputum Amount: Scant PEEP: 5.0 PIP: 19 Tube Feeding Amount: 35 I&O: Intake and Output 03/17/19 03/18/19 19:00 07:00 Intake Total 1040 ml 960 ml Output Total 340 ml 420 ml Balance 700 ml 540 ml Free Water 90 ml IV Total 650 ml 600 ml Tube Feeding 300 ml 300 ml Other 60 ml Output Urine Total 340 ml 420 ml # Bowel Movements 2 ET-Tube: 6.0 Bg Moffett MD Mar 18, 2019 11:36
--- NOTE | 2019-03-18 11:45 | NUR ---
ASE MANAGEMENT:REVIEW 03/18/19 SI: SEPSIS. PNA SACRAL DECUB. CHRONIC RESP FAILURE 98.2 81 28 95/39 100% ON 6L/28% VIA T-PIECE H/H-8.3/25.9 IS: IVF@50/HR HEPARIN SQ Q12 KEPPRA GT Q12 DUONEB HHN Q4HRS RTC IV REGLAN Q6HRS ATROPINE SL TID : ICU STATUS PLAN: TUBE FEEDING @ 35/HR
--- NOTE | 2019-03-18 12:04 | NUR ---
DISCHARGE PLANNING CLINICALS FAXED TO : [facility]
--- NOTE | 2019-03-18 12:20 | NUR ---
NURSE NOTES: Received call back from Dr meredith with new orders for STAT ABG and d/c scopolamine patch.
--- NOTE | 2019-03-18 12:22 | NUR ---
NURSE NOTES: scopolamine patch removed and RT Rayshawn notified of STAT ABG order.
--- NOTE | 2019-03-18 12:49 | NUR ---
NURSE NOTES: Spoke with Dr. Beltrán regarding ABG results, new orders placed for EEG.
--- NOTE | 2019-03-18 13:13 | Nephrology Progress Note ---
Assessment/Plan Problem List: (1) Acute renal failure (ARF) Assessment: Cr stable (2) Chronic respiratory failure (3) Anemia (4) Sepsis Assessment Acute renal failure Respiratory failure - Trach Low Mag- Low k , Low Na Anemia UTI / Sepsis Proteinuria / HypoAlbuminemia high Trigs Sz decubs bed bound DNR Plan lab reviewed GT feeding increased bolus Albumin as needed K and Mag and Phos supplement as needed Hydrate as needed Urine studies avoid Nephrotoxics mag K Phos supplements as needed monitor renal parameters Subjective ROS Limited/Unobtainable: Yes Constitutional: Reports: malaise Objective Objective Last 24 Hour Vital Signs Date Time Temp Pulse Resp B/P (MAP) Pulse Ox O2 Delivery O2 Flow Rate FiO2 03/18/19 12:28 99 T-Piece 6.0 28 03/18/19 12:00 98.1 78 24 90/39 (56) 99 03/18/19 12:00 T-piece 6.0 T-piece 6.0 03/18/19 12:00 74 03/18/19 12:00 6.0 28 03/18/19 11:05 82 26 94/39 (57) 100 03/18/19 11:00 81 23 81/37 (52) 100 03/18/19 10:39 78 22 100 T-Piece 6.0 28 80 22 100 03/18/19 10:00 83 27 122/52 (75) 100 03/18/19 09:00 96 28 124/58 (80) 100 03/18/19 08:00 T-piece 6.0 03/18/19 08:00 81 03/18/19 08:00 6.0 28 03/18/19 08:00 98.2 81 28 95/39 (57) 100 03/18/19 07:25 100 T-Piece 6.0 28 03/18/19 07:23 80 18 100 T-Piece 6.0 28 82 18 100 03/18/19 07:02 74 26 91/51 (64) 99 03/18/19 06:03 74 25 86/43 (57) 99 03/18/19 06:00 74 25 84/39 (54) 99 03/18/19 05:00 88 21 124/60 (81) 99 03/18/19 04:00 6.0 28 03/18/19 04:00 T-piece 6.0 03/18/19 04:00 97.5 71 22 107/46 (66) 100 03/18/19 03:59 73 23 100 T-Piece 6.0 28 71 22 100 03/18/19 03:04 72 03/18/19 03:00 72 23 113/51 (71) 100 03/18/19 02:00 70 22 115/54 (74) 100 03/18/19 01:00 64 22 98/46 (63) 100 03/18/19 01:00 100 T-Piece 6.0 28 03/18/19 00:00 97.6 63 25 102/49 (66) 98 03/18/19 00:00 T-piece 6.0 03/18/19 00:00 6.0 28 03/17/19 23:58 68 19 100 T-Piece 6.0 28 66 26 97 03/17/19 23:17 63 03/17/19 23:00 64 21 91/45 (60) 100 03/17/19 22:00 61 21 113/52 (72) 99 03/17/19 21:00 63 19 95/50 (65) 100 03/17/19 20:00 6.0 28 03/17/19 20:00 T-piece 6.0 03/17/19 20:00 97.6 63 19 95/51 (66) 98 03/17/19 19:32 97 T-Piece 6.0 28 03/17/19 19:30 65 19 100 T-Piece 6.0 28 64 19 97 03/17/19 19:27 64 03/17/19 19:00 63 18 105/55 (72) 99 03/17/19 18:00 97.6 66 23 106/49 (68) 100 03/17/19 17:00 77 19 100/48 (65) 100 03/17/19 16:00 6.0 28 03/17/19 16:00 61 19 90/47 (61) 98 03/17/19 16:00 T-piece 6.0 03/17/19 16:00 62 03/17/19 15:58 66 16 100 T-Piece 6.0 28 61 19 98 03/17/19 15:00 82 25 146/82 (103) 99 03/17/19 14:00 97.6 75 13 121/65 (83) 98 03/17/19 13:44 98 T-Piece 6.0 28 Intake and Output 03/17/19 03/18/19 19:00 07:00 Intake Total 1040 ml 960 ml Output Total 340 ml 420 ml Balance 700 ml 540 ml Free Water 90 ml IV Total 650 ml 600 ml Tube Feeding 300 ml 300 ml Other 60 ml Output Urine Total 340 ml 420 ml # Bowel Movements 2 Laboratory Tests 03/18/19 03:48: White Blood Count 5.7, Red Blood Count 3.04L, Hemoglobin 8.3L, Hematocrit 25.9L , Mean Corpuscular Volume 85, Mean Corpuscular Hemoglobin 27.3, Mean Corpuscular Hemoglobin Concent 32.0, Red Cell Distribution Width 16.2H, Platelet Count 177, Mean Platelet Volume 5.9L, Neutrophils (%) (Auto) 56.7, Lymphocytes (%) (Auto) 29.6, Monocytes (%) (Auto) 7.0, Eosinophils (%) (Auto) 5.9H, Basophils (%) (Auto) 0.8, Sodium Level 142, Potassium Level 4.5, Chloride Level 109H, Carbon Dioxide Level 31, Anion Gap 2L, Blood Urea Nitrogen 11, Creatinine 0.9, Estimat Glomerular Filtration Rate , Glucose Level 83, Calcium Level 8.9, Total Bilirubin 0.2, Aspartate Amino Transf (AST/SGOT) 21, Alanine Aminotransferase (ALT/SGPT) 30, Alkaline Phosphatase 112, Total Protein 7.1, Albumin 2.4L, Globulin 4.7, Albumin/Globulin Ratio 0.5L 03/18/19 12:27: Arterial Blood pH 7.392, Arterial Blood Partial Pressure CO2 44.6, Arterial Blood Partial Pressure O2 74.9L, Arterial Blood HCO3 26.5H, Arterial Blood Oxygen Saturation 93.5L, Arterial Blood Base Excess 1.4, Murphy Test Positive Height (Feet): 5 Height (Inches): 5.00 Weight (Pounds): 125 General Appearance: no apparent distress EENT: other - trach to O2 collar Cardiovascular: tachycardia Respiratory/Chest: decreased breath sounds Abdomen: distended Objective no change Eric Cortez MD Mar 18, 2019 13:13
--- NOTE | 2019-03-18 13:31 | NUR ---
NURSE NOTES: Medications administered, pt repositioned and in no acute distress, now opens eyes spontaneously. Pt suctioned. Relayed findings to Dr. Beltrán. Mental status improving. Will continue to monitor.
--- NOTE | 2019-03-18 14:03 | Infectious Diseases Prog Note ---
Assessment/Plan Assessment/Plan A 1. Providencia & Klebsiella pneumonia treated 2. respiratory failure 3. hypertension 4. CVA 5. dementia 6. sacral decubitus ulcer 7. rectal VRE colonization 8. Anemia 9. Proteus UTI 10. Acute renal failure 11. Leukocytosis resolved P 1.Observe off antibiotic 2. Frequent suctioning 3. Remove PICC line before discharge Subjective ROS Limited/Unobtainable: Yes Constitutional: Denies: fever Allergies: Coded Allergies: CODEINE (Verified Allergy, Unknown, HIVES, 09/15/09) Objective Vital Signs Last 24 Hour Vital Signs Date Time Temp Pulse Resp B/P (MAP) Pulse Ox O2 Delivery O2 Flow Rate FiO2 03/18/19 13:00 72 27 94/41 (58) 100 03/18/19 12:28 99 T-Piece 6.0 28 03/18/19 12:00 98.1 78 24 90/39 (56) 99 03/18/19 12:00 T-piece 6.0 T-piece 6.0 03/18/19 12:00 74 03/18/19 12:00 6.0 28 03/18/19 11:05 82 26 94/39 (57) 100 03/18/19 11:00 81 23 81/37 (52) 100 03/18/19 10:39 78 22 100 T-Piece 6.0 28 80 22 100 03/18/19 10:00 83 27 122/52 (75) 100 03/18/19 09:00 96 28 124/58 (80) 100 03/18/19 08:00 T-piece 6.0 03/18/19 08:00 81 03/18/19 08:00 6.0 28 03/18/19 08:00 98.2 81 28 95/39 (57) 100 03/18/19 07:25 100 T-Piece 6.0 28 03/18/19 07:23 80 18 100 T-Piece 6.0 28 82 18 100 03/18/19 07:02 74 26 91/51 (64) 99 03/18/19 06:03 74 25 86/43 (57) 99 03/18/19 06:00 74 25 84/39 (54) 99 03/18/19 05:00 88 21 124/60 (81) 99 03/18/19 04:00 6.0 28 03/18/19 04:00 T-piece 6.0 03/18/19 04:00 97.5 71 22 107/46 (66) 100 03/18/19 03:59 73 23 100 T-Piece 6.0 28 71 22 100 03/18/19 03:04 72 03/18/19 03:00 72 23 113/51 (71) 100 03/18/19 02:00 70 22 115/54 (74) 100 03/18/19 01:00 64 22 98/46 (63) 100 03/18/19 01:00 100 T-Piece 6.0 28 03/18/19 00:00 97.6 63 25 102/49 (66) 98 03/18/19 00:00 T-piece 6.0 03/18/19 00:00 6.0 28 03/17/19 23:58 68 19 100 T-Piece 6.0 28 66 26 97 03/17/19 23:17 63 03/17/19 23:00 64 21 91/45 (60) 100 03/17/19 22:00 61 21 113/52 (72) 99 03/17/19 21:00 63 19 95/50 (65) 100 03/17/19 20:00 6.0 28 03/17/19 20:00 T-piece 6.0 03/17/19 20:00 97.6 63 19 95/51 (66) 98 03/17/19 19:32 97 T-Piece 6.0 28 03/17/19 19:30 65 19 100 T-Piece 6.0 28 64 19 97 03/17/19 19:27 64 03/17/19 19:00 63 18 105/55 (72) 99 03/17/19 18:00 97.6 66 23 106/49 (68) 100 03/17/19 17:00 77 19 100/48 (65) 100 03/17/19 16:00 6.0 28 03/17/19 16:00 61 19 90/47 (61) 98 03/17/19 16:00 T-piece 6.0 03/17/19 16:00 62 03/17/19 15:58 66 16 100 T-Piece 6.0 28 61 19 98 03/17/19 15:00 82 25 146/82 (103) 99 Height (Feet): 5 Height (Inches): 5.00 Weight (Pounds): 125 General Appearance: no acute distress HEENT: mucous membranes moist, status post trach Respiratory/Chest: lungs clear, other - on T bar Cardiovascular: normal rate, other - R arm PICC line Abdomen: soft, non tender, other - GT feeding Extremities: no edema Neurologic/Psychiatric: aphasia Laboratory Tests Test 03/18/19 03:48 03/18/19 12:27 White Blood Count 5.7 K/UL (4.8-10.8) Red Blood Count 3.04 M/UL (4.20-5.40) L Hemoglobin 8.3 G/DL (12.0-16.0) L Hematocrit 25.9 % (37.0-47.0) L Mean Corpuscular Volume 85 FL (80-99) Mean Corpuscular Hemoglobin 27.3 PG (27.0-31.0) Mean Corpuscular Hemoglobin Concent 32.0 G/DL (32.0-36.0) Red Cell Distribution Width 16.2 % (11.6-14.8) H Platelet Count 177 K/UL (150-450) Mean Platelet Volume 5.9 FL (6.5-10.1) L Neutrophils (%) (Auto) 56.7 % (45.0-75.0) Lymphocytes (%) (Auto) 29.6 % (20.0-45.0) Monocytes (%) (Auto) 7.0 % (1.0-10.0) Eosinophils (%) (Auto) 5.9 % (0.0-3.0) H Basophils (%) (Auto) 0.8 % (0.0-2.0) Sodium Level 142 MMOL/L (136-145) Potassium Level 4.5 MMOL/L (3.5-5.1) Chloride Level 109 MMOL/L (98-107) H Carbon Dioxide Level 31 MMOL/L (21-32) Anion Gap 2 mmol/L (5-15) L Blood Urea Nitrogen 11 mg/dL (7-18) Creatinine 0.9 MG/DL (0.55-1.30) Estimat Glomerular Filtration Rate mL/min (>60) Glucose Level 83 MG/DL (74-106) Calcium Level 8.9 MG/DL (8.5-10.1) Total Bilirubin 0.2 MG/DL (0.2-1.0) Aspartate Amino Transf (AST/SGOT) 21 U/L (15-37) Alanine Aminotransferase (ALT/SGPT) 30 U/L (12-78) Alkaline Phosphatase 112 U/L (46-116) Total Protein 7.1 G/DL (6.4-8.2) Albumin 2.4 G/DL (3.4-5.0) L Globulin 4.7 g/dL Albumin/Globulin Ratio 0.5 (1.0-2.7) L Arterial Blood pH 7.392 (7.350-7.450) Arterial Blood Partial Pressure CO2 44.6 mmHg (35.0-45.0) Arterial Blood Partial Pressure O2 74.9 mmHg (75.0-100.0) L Arterial Blood HCO3 26.5 mmol/L (22.0-26.0) H Arterial Blood Oxygen Saturation 93.5 % (95-100) L Arterial Blood Base Excess 1.4 (-2-2) Murphy Test Positive Current Medications Medications (Trade) Dose Ordered Sig/Maicol Route PRN Reason Start Time Stop Time Status Last Admin Dose Admin Albuterol/ Ipratropium (Albuterol/ Ipratropium) 3 ml Q4HRT HHN 03/15/19 03:00 03/20/19 02:59 03/18/19 10:39 Atropine Sulfate (Atropine Opth Adriana) 2 drop TID SL 03/07/19 09:00 04/06/19 08:59 03/18/19 13:25 Bacitracin (Bacitracin 15gm tube) 1 applic THREE TIMES A DAY TOPIC 02/28/19 18:30 03/30/19 18:29 03/18/19 13:25 Chlorhexidine Gluconate (Cesilia-Hex 2%) 1 applic DAILY@2000 TOPIC 03/12/19 20:00 04/11/19 19:59 03/17/19 20:01 Dextrose/Sodium Chloride 1,000 ml @ 50 mls/hr Q20H IV 03/17/19 08:30 04/16/19 08:29 03/18/19 04:25 Famotidine (Pepcid) 20 mg BID GT 03/02/19 18:00 04/01/19 17:59 03/18/19 08:25 Heparin Sodium (Porcine) (Heparin 5000 units/ml) 5,000 units EVERY 12 HOURS SUBQ 03/15/19 21:00 03/23/19 23:14 03/18/19 08:26 Hydralazine HCl (Apresoline) 10 mg Q4H PRN IV For High Blood Pressure 03/12/19 09:00 04/11/19 08:59 03/17/19 05:17 Levetiracetam (Keppra) 750 mg Q12HR GT 03/15/19 21:00 03/23/19 23:29 03/18/19 08:25 Metoclopramide HCl (Reglan) 5 mg Q6H IVP 03/10/19 02:00 03/24/19 01:59 03/18/19 13:25 Potassium Chloride (K-Dur) 20 meq TWICE A DAY GT 03/12/19 09:00 04/11/19 08:59 03/18/19 08:25 Chauncey Liriano MD Mar 18, 2019 14:03
--- NOTE | 2019-03-18 14:59 | NUR ---
NURSE NOTES: Pt mentation improved, opens eyes spontaneously and makes eye contact when called by name, also responds to shaking. Per Dr. Beltrán, EEG to be cancelled.
--- NOTE | 2019-03-18 15:15 | NUR ---
NURSE NOTES: Dr Moffett at bedside, new orders placed for mucomyst 200mg INH Q4HR. RT notified.
--- NOTE | 2019-03-18 16:00 | NUR ---
NURSE NOTES: Pt repositioned, oral care provided. No s/s of distress. Will continue to monitor.
--- NOTE | 2019-03-18 17:58 | NUR ---
NURSE NOTES: Pt noted with small amount of emesis at bedside. Left message for Dr. Vaughan and Dr. Beltrán, requested zofran PRN. Awaiting call back. tube feeding held at this time. no residuals noted. HOB elevated to high graf.
--- NOTE | 2019-03-18 18:00 | NUR ---
NURSE NOTES: Call back received from Dr. Vaughan with order to hold TF for 4 hours. New orders also received from Dr. Beltrán to administer Zofran 4mg IVP PRN Q4hr for N/V.
--- NOTE | 2019-03-18 18:10 | NUR ---
NURSE NOTES: 4 mg zofran IVP given for emesis.
--- NOTE | 2019-03-18 18:39 | Surgery Progress Note ---
Surgery Progress Note Subjective Additional Comments no acute events pending d/c Objective Last 24 Hour Vital Signs Date Time Temp Pulse Resp B/P (MAP) Pulse Ox O2 Delivery O2 Flow Rate FiO2 03/18/19 18:22 101 20 124/75 (91) 98 03/18/19 18:17 173/147 03/18/19 18:00 109 19 124/75 (91) 100 03/18/19 17:00 93 20 137/84 (101) 100 03/18/19 16:00 91 03/18/19 16:00 98.0 86 24 123/52 (75) 100 03/18/19 16:00 6.0 28 03/18/19 16:00 T-piece 6.0 T-piece 6.0 03/18/19 15:07 80 20 100 T-Piece 6.0 28 82 20 100 03/18/19 15:00 84 26 122/68 (86) 100 03/18/19 14:00 72 15 107/49 (68) 100 03/18/19 13:00 72 27 94/41 (58) 100 03/18/19 12:28 99 T-Piece 6.0 28 03/18/19 12:00 98.1 78 24 90/39 (56) 99 03/18/19 12:00 T-piece 6.0 T-piece 6.0 03/18/19 12:00 74 03/18/19 12:00 6.0 28 03/18/19 11:05 82 26 94/39 (57) 100 03/18/19 11:00 81 23 81/37 (52) 100 03/18/19 10:39 78 22 100 T-Piece 6.0 28 80 22 100 03/18/19 10:00 83 27 122/52 (75) 100 03/18/19 09:00 96 28 124/58 (80) 100 03/18/19 08:00 T-piece 6.0 03/18/19 08:00 81 03/18/19 08:00 6.0 28 03/18/19 08:00 98.2 81 28 95/39 (57) 100 03/18/19 07:25 100 T-Piece 6.0 28 03/18/19 07:23 80 18 100 T-Piece 6.0 28 82 18 100 03/18/19 07:02 74 26 91/51 (64) 99 03/18/19 06:03 74 25 86/43 (57) 99 03/18/19 06:00 74 25 84/39 (54) 99 03/18/19 05:00 88 21 124/60 (81) 99 03/18/19 04:00 6.0 28 03/18/19 04:00 T-piece 6.0 03/18/19 04:00 97.5 71 22 107/46 (66) 100 03/18/19 03:59 73 23 100 T-Piece 6.0 28 71 22 100 03/18/19 03:04 72 03/18/19 03:00 72 23 113/51 (71) 100 03/18/19 02:00 70 22 115/54 (74) 100 03/18/19 01:00 64 22 98/46 (63) 100 03/18/19 01:00 100 T-Piece 6.0 28 03/18/19 00:00 97.6 63 25 102/49 (66) 98 03/18/19 00:00 T-piece 6.0 03/18/19 00:00 6.0 28 03/17/19 23:58 68 19 100 T-Piece 6.0 28 66 26 97 03/17/19 23:17 63 03/17/19 23:00 64 21 91/45 (60) 100 03/17/19 22:00 61 21 113/52 (72) 99 03/17/19 21:00 63 19 95/50 (65) 100 03/17/19 20:00 6.0 28 03/17/19 20:00 T-piece 6.0 03/17/19 20:00 97.6 63 19 95/51 (66) 98 03/17/19 19:32 97 T-Piece 6.0 28 03/17/19 19:30 65 19 100 T-Piece 6.0 28 64 19 97 03/17/19 19:27 64 03/17/19 19:00 63 18 105/55 (72) 99 I&O Intake and Output 03/17/19 03/18/19 19:00 07:00 Intake Total 1040 ml 960 ml Output Total 340 ml 420 ml Balance 700 ml 540 ml Free Water 90 ml IV Total 650 ml 600 ml Tube Feeding 300 ml 300 ml Other 60 ml Output Urine Total 340 ml 420 ml # Bowel Movements 2 Dressing: saturated Wound: clean Cardiovascular: RSR Respiratory: clear Abdomen: soft, non-tender, present bowel sounds Extremities: no edema, no tenderness, no cyanosis Laboratory Tests Test 03/18/19 03:48 03/18/19 12:27 White Blood Count 5.7 K/UL (4.8-10.8) Red Blood Count 3.04 M/UL (4.20-5.40) L Hemoglobin 8.3 G/DL (12.0-16.0) L Hematocrit 25.9 % (37.0-47.0) L Mean Corpuscular Volume 85 FL (80-99) Mean Corpuscular Hemoglobin 27.3 PG (27.0-31.0) Mean Corpuscular Hemoglobin Concent 32.0 G/DL (32.0-36.0) Red Cell Distribution Width 16.2 % (11.6-14.8) H Platelet Count 177 K/UL (150-450) Mean Platelet Volume 5.9 FL (6.5-10.1) L Neutrophils (%) (Auto) 56.7 % (45.0-75.0) Lymphocytes (%) (Auto) 29.6 % (20.0-45.0) Monocytes (%) (Auto) 7.0 % (1.0-10.0) Eosinophils (%) (Auto) 5.9 % (0.0-3.0) H Basophils (%) (Auto) 0.8 % (0.0-2.0) Sodium Level 142 MMOL/L (136-145) Potassium Level 4.5 MMOL/L (3.5-5.1) Chloride Level 109 MMOL/L (98-107) H Carbon Dioxide Level 31 MMOL/L (21-32) Anion Gap 2 mmol/L (5-15) L Blood Urea Nitrogen 11 mg/dL (7-18) Creatinine 0.9 MG/DL (0.55-1.30) Estimat Glomerular Filtration Rate mL/min (>60) Glucose Level 83 MG/DL (74-106) Calcium Level 8.9 MG/DL (8.5-10.1) Total Bilirubin 0.2 MG/DL (0.2-1.0) Aspartate Amino Transf (AST/SGOT) 21 U/L (15-37) Alanine Aminotransferase (ALT/SGPT) 30 U/L (12-78) Alkaline Phosphatase 112 U/L (46-116) Total Protein 7.1 G/DL (6.4-8.2) Albumin 2.4 G/DL (3.4-5.0) L Globulin 4.7 g/dL Albumin/Globulin Ratio 0.5 (1.0-2.7) L Arterial Blood pH 7.392 (7.350-7.450) Arterial Blood Partial Pressure CO2 44.6 mmHg (35.0-45.0) Arterial Blood Partial Pressure O2 74.9 mmHg (75.0-100.0) L Arterial Blood HCO3 26.5 mmol/L (22.0-26.0) H Arterial Blood Oxygen Saturation 93.5 % (95-100) L Arterial Blood Base Excess 1.4 (-2-2) Murphy Test Positive Plan Problems: (1) Sacral decubitus ulcer Assessment & Plan: This is a 83-year-old female with multiple medical committees that is currently admitted for medical care and management and identified to have multiple wounds requiring care. On admission patient noted to have a resolved sacral decubitus ulcer. Has had prior care and is well-healed at this time. Will ensure it does not open up again. Patient has a right ischial decubitus ulcer that is resolved. Scar intact and well formed. Will monitor to ensure it does not open up again. Patient has a left ischial decubitus ulcer that can be identified to be stage IV with palpable bone that has been resolving as noted by the periwound tissue and scar but open area approximately 1 cm x 1.5 cm few millimeters deep to bone identified. Unsure if this is been to be completely healed prior and has since opened or if has been healing at this level. No foul odor no drainage was unsure local wound care until healed Bilateral heels soft without signs of injury Resolving pressure injury L ischium(L)1.8cm x (W)1cm.Scattered biofilm at base of wound. Edges flat and adherent with surrounding hyperpigmentation. No odor or exudate noted. Sacrum is pale pink with surrounding hyperpigmentation. Hyperpigmentation R ischium with small sheared area centrally.No areas of erythema or exudate noted. Both heels are soft but blanchable. Skin Assessed under collar of trach and no evidence of skin breakdown noted. All wound Tx. are effective and continued as ordered. Pt ahs an APM/Belén mattress overlay and is being repositioned per protocols and per tolerance.No new skin concerns noted. Full thickness pressure injury L Ischium with small amt biofilm (L)1.8cm x (W) 1cm. Surrounding pink hyperpigmentation. No odor or exudate noted. [place] hyperpigmentation from previous wound noted to sacrum. Pt also noted to have Cat 2 Skin Tear dorsal L hand, L 5th metatarsal extending into palm of hand. 80% skin flap in situ.Both heels are dry firm and blanchable. No other skin concerns noted. R ischial wound has resolved. [place] epithelial with surrounding hyperpigmentation. from historical wound. Full thickness pressure injury L ischium. [place] granulation at base of wound. Borders are macerated with Surrounding hyperpigmentation.Small amt non-odorous serous exudate noted.(L)0.7cm x (W)0.8cm. Skin hyperpigmentation from historical wound noted to Sacrum. Small sheared area noted to sacrococcygeal area.(L)0.4cm x (W)0.3cm.Small amt sanguineous exudate noted. Reabsorbed blister with semi-detached dry necrotic cap noted to web space of L thumb and L index fingers extending into palm of L hand. No odor or exudate noted. Skin assessed under tracheal collar and no erythema or evidence of Skin Breakdown noted. NO new skin concerns noted . Good hand hygiene provided to both hands. R hand contracted and fisted. Fingernails trimmed. Wound care provided along with Primary nurse. Wound Tx continued as ordered. New order obtained from to apply Betadine to wound L hand Daily. Tx done as ordered. L hand wrapped with kerlix weaving kerlix between fingers to separate fingers. Moisture Barrier applied to sacrum ,R ischium. Each site covered with Optifoam drsg. Both lower ext washed and moisturized. Cavilon Skin Barrier applied to both heels.Each heel covered with Optifoam drsgs. Pt positioned with pillows and both heels off-loaded with pillow. Tx.Plan: Apply Betadine to wound L hand. Cover with Gauze and wrap with Kerlix Daily and prn. Cleanse L ischial wound with Saline. Apply Therahoney. Apply Moisture Barrier periwound. Cover with Optifoam drsgevery 3 days and prn. Apply Moisture Barrier Paste to R ischium and Sacrum. Cover each area with Optifoam drsg. Change every 3 days and prn. Apply Cavilon Skin Barrier to both heels. Cover each heel with Optifoam drsg. Change every 7 days and prn. APM/BELÉN Mattress overlay. Reposition at least every 2hours or as tolerated. Off-load heels with pillow. Cleanse Blister Dorsal and palm of L hand with saline. Versatel One Silicone Contact Layer(Applied). Apply Silvasorb Gel. Wrap with Kerlix Gauze.Change every 7 days and prn. Apply Moisture Barrier to sacrum. Cover with Optifoam drsg. Change every 3 days and prn. Cleanse L ischial wound with saline. Apply Therahoney. Apply Moisture Barrier Paste periwound. Cover with Optifoam drsg. Change every 3 days and prn. Apply Cavilon Skin Barrier to both heels. Cover each heel with Optifoam drsg. Change every 7 days and prn. APM/BELÉN Mattress overlay. Reposition at least every 2hours or as tolerated. Off-load heels with pillow. Nutritional optimization We will monitor follow with recommendations cont with above upon d/c (2) Sepsis Assessment & Plan: IV abx as per ID trend labs improving wounds unlikely etiology likely respiratory imaging noted and okay abnormal lft's stable PICC on Abx in ICU for desaturation CXR with consolidation cont with frequent suctioning d/c planning possible placement found Evidence of left lower lobe pneumonia, also previously demonstrated Gastrostomy in good position Mild diastasis of the rectus abdominis musculature again demonstrated Retrosacral decubitus changes, better depicted on prior exam which included the pelvis Small hiatal hernia with evidence of trace gastroesophageal reflux Discussed with GI. Recommend GJ family still pending decision (3) Feeding by G-tube Assessment & Plan: DAILY ESTIMATED NEEDS: Needs based on Pulmonary, wounds, bedbound/ 60kg adj 25-28 kcals/kg 4956-4670 total kcals 1.25-2 g protein/kg 75-120 g total protein 25-30 mL/kg 2120-0838 total fluid mLs NUTRITION DIAGNOSIS: * Swallowing difficulty R/T respiratory status as evidenced by pt on T-collar, now back the vent, PEG dep, TF changed to low rate at this time due to episodes of vomiting + residuals. * Increased kcal/prot needs R/T wound healing as evidenced by BL buttocks and sacral wound photos, refer to eval. (CURRENT TF:Glucerna 1.5 @35ml) ENTERAL NUTRITION RECOMMENDATIONS: VITAL AF 1.2 @ 55ml/hr x 24 hrs to provide 1320ml, 1584kcal, 99g prot, 1060ml free water - Once medically appropriate to resume TF, rec to initiate elemental and carb control formula of Vital 1.2 for possible improved tolerance - Initiate VITAL 1.2 @ 25ml/hr x 6hrs, advance 10ml q 4-6 hrs as tolerated to goal rate - Flush per MD/ HOB over 30 degrees ADDITIONAL RECOMMENDATIONS: 1) Re-calibrated bedscale wt for accurate CBW 2) Wound healing: Add Cristian 1pkt BID w/ improved Tf tolerace + MVI x1 daily 3) Monitor lytes, replete as needed (low Mg, K) 4) Monitor NPO status, ability to resume TF. -> held on and off due to vomiting since 02/02 5) SSI prn resume tube feeds (4) Chronic vegetative state Assessment & Plan: incontinence of urine and stool. can soil dressings. nurses doing great job with monitoring and changing prn (5) Leukocytosis Walter Madera Mar 18, 2019 18:39
[2019-03-18] MEDS: Acetylcysteine 20% Soln 4ml HHN SCH ×2 (18:48→22:37)
--- NOTE | 2019-03-18 19:00 | NUR ---
NURSE NOTES: Noted 1 small brown BM. pt cleaned and repositioned. No s/s of distress or Nause and vomiting at this time. Will continue to monitor.
--- NOTE | 2019-03-18 19:39 | NUR ---
HAND-OFF: Report given to JEANNINE Church. Pt's BP noted 126/50 at this time. No s/s of nausea or vomiting noted after zofran administration. Pt in bed in no distress at this time. Pt suctioned orally. Tube feeding remains off at this time.
--- NOTE | 2019-03-18 19:40 | NUR ---
NURSE NOTES: Endorsement received from JEANNINE Delgado. Patient opens eyes spontaneously, does not track. Withdraws to pain. Shiley 6.0 28% Tpiece. GT patent and intact. Feeding held at this time. Right upper arm PICC, on D5 1/2 NS 50ml/hr. Purewick in place. On seizure precaution. On P200 mattress. Bed locked and in low position. Head of bed elevated. Bed alarm on. Call light within reach.
[2019-03-18] MEDS: Dyna-Hex 2% Top Sol 2oz TOPIC SCH (20:09)
--- NOTE | 2019-03-18 21:30 | NUR ---
NURSE NOTES: Dr. Vaughan on the phone, spoke with patient's daughter.
--- NOTE | 2019-03-18 22:00 | NUR ---
NURSE NOTES: Patient passed soft stool. Perineal care done.
--- NOTE | 2019-03-18 22:15 | NUR ---
HAND-OFF: Report given to JEANNINE Elaine.
--- NOTE | 2019-03-18 22:15 | NUR ---
NURSE NOTES: Received patient from JEANNINE Kraus. Patient is awake, eyes are not tracking at the moment. On trach Shiley 6xlt @ 28% saturating at 98%. Purewick suctioning. GTube feeding of Glucerna 1.5 on hold for n/v and aspiration precautions. Daughter at bedside. Will continue plan of care.
--- NOTE | 2019-03-18 22:59 | General Progress Note ---
Assessment/Plan Status: stable, progressing Assessment/Plan: Assessment - N/V, periodic, including suctioning of feeds from mouth - suspect due to gastroparesis, possibly also from suctioning reflex - DTR now agrees with trialof G to J conversion - will arrange for Th or Fri - suction gently - Elevated Alk phos / LFT - CT negative - abd U/S negative - check hepatitis serologies - negative - Anemia with OB (-) stools - Resp failure, s/p Trach - dysphagia, s/p PEG --> s/p GT change - OBS - minor GT tract inflammation / infection - poor Px Recommendations - laxative PRN - antibiotic ointment to GT site PRN - aspiration precautions - elevate HOB - PPI - EGD with G to J either or SAT Subjective Allergies: Coded Allergies: CODEINE (Verified Allergy, Unknown, HIVES, 09/15/09) Subjective 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 noted to have recurrent vomiting of TF d/w DTR at length all explained agreed to trial of G --> J conversion Objective Last 24 Hour Vital Signs Date Time Temp Pulse Resp B/P (MAP) Pulse Ox O2 Delivery O2 Flow Rate FiO2 03/18/19 22:39 92 25 100 T-Piece 6.0 28 89 25 100 03/18/19 22:00 97 25 118/53 (74) 100 97 03/18/19 21:00 88 28 105/41 (62) 99 88 03/18/19 20:00 T-piece 6.0 T-piece 6.0 03/18/19 20:00 6.0 28 03/18/19 20:00 97.9 97 24 104/44 (64) 100 97 03/18/19 20:00 103 03/18/19 19:00 109 18 103/70 (81) 100 03/18/19 18:48 100 20 100 T-Piece 6.0 28 102 21 99 03/18/19 18:47 98 T-Piece 6.0 28 03/18/19 18:22 101 20 124/75 (91) 98 19 18:17 173/147 03/18/19 18:00 109 19 124/75 (91) 100 03/18/19 17:00 93 20 137/84 (101) 100 03/18/19 16:00 91 03/18/19 16:00 98.0 86 24 123/52 (75) 100 03/18/19 16:00 6.0 28 03/18/19 16:00 T-piece 6.0 T-piece 6.0 03/18/19 15:07 80 20 100 T-Piece 6.0 28 82 20 100 03/18/19 15:00 84 26 122/68 (86) 100 03/18/19 14:00 72 15 107/49 (68) 100 03/18/19 13:00 72 27 94/41 (58) 100 03/18/19 12:28 99 T-Piece 6.0 28 03/18/19 12:00 98.1 78 24 90/39 (56) 99 03/18/19 12:00 T-piece 6.0 T-piece 6.0 03/18/19 12:00 74 03/18/19 12:00 6.0 28 03/18/19 11:05 82 26 94/39 (57) 100 03/18/19 11:00 81 23 81/37 (52) 100 03/18/19 10:39 78 22 100 T-Piece 6.0 28 80 22 100 03/18/19 10:00 83 27 122/52 (75) 100 03/18/19 09:00 96 28 124/58 (80) 100 03/18/19 08:00 T-piece 6.0 03/18/19 08:00 81 03/18/19 08:00 6.0 28 03/18/19 08:00 98.2 81 28 95/39 (57) 100 03/18/19 07:25 100 T-Piece 6.0 28 03/18/19 07:23 80 18 100 T-Piece 6.0 28 82 18 100 03/18/19 07:02 74 26 91/51 (64) 99 03/18/19 06:03 74 25 86/43 (57) 99 03/18/19 06:00 74 25 84/39 (54) 99 03/18/19 05:00 88 21 124/60 (81) 99 03/18/19 04:00 6.0 28 03/18/19 04:00 T-piece 6.0 03/18/19 04:00 97.5 71 22 107/46 (66) 100 03/18/19 03:59 73 23 100 T-Piece 6.0 28 71 22 100 03/18/19 03:04 72 03/18/19 03:00 72 23 113/51 (71) 100 03/18/19 02:00 70 22 115/54 (74) 100 03/18/19 01:00 64 22 98/46 (63) 100 03/18/19 01:00 100 T-Piece 6.0 28 03/18/19 00:00 97.6 63 25 102/49 (66) 98 03/18/19 00:00 T-piece 6.0 03/18/19 00:00 6.0 28 03/17/19 23:58 68 19 100 T-Piece 6.0 28 66 26 97 03/17/19 23:17 63 03/17/19 23:00 64 21 91/45 (60) 100 Intake and Output 03/17/19 03/18/19 19:00 07:00 Intake Total 1040 ml 960 ml Output Total 340 ml 420 ml Balance 700 ml 540 ml Free Water 90 ml IV Total 650 ml 600 ml Tube Feeding 300 ml 300 ml Other 60 ml Output Urine Total 340 ml 420 ml # Bowel Movements 2 Laboratory Tests 03/18/19 03:48: White Blood Count 5.7, Red Blood Count 3.04L, Hemoglobin 8.3L, Hematocrit 25.9L , Mean Corpuscular Volume 85, Mean Corpuscular Hemoglobin 27.3, Mean Corpuscular Hemoglobin Concent 32.0, Red Cell Distribution Width 16.2H, Platelet Count 177, Mean Platelet Volume 5.9L, Neutrophils (%) (Auto) 56.7, Lymphocytes (%) (Auto) 29.6, Monocytes (%) (Auto) 7.0, Eosinophils (%) (Auto) 5.9H, Basophils (%) (Auto) 0.8, Sodium Level 142, Potassium Level 4.5, Chloride Level 109H, Carbon Dioxide Level 31, Anion Gap 2L, Blood Urea Nitrogen 11, Creatinine 0.9, Estimat Glomerular Filtration Rate , Glucose Level 83, Calcium Level 8.9, Total Bilirubin 0.2, Aspartate Amino Transf (AST/SGOT) 21, Alanine Aminotransferase (ALT/SGPT) 30, Alkaline Phosphatase 112, Total Protein 7.1, Albumin 2.4L, Globulin 4.7, Albumin/Globulin Ratio 0.5L 03/18/19 12:27: Arterial Blood pH 7.392, Arterial Blood Partial Pressure CO2 44.6, Arterial Blood Partial Pressure O2 74.9L, Arterial Blood HCO3 26.5H, Arterial Blood Oxygen Saturation 93.5L, Arterial Blood Base Excess 1.4, Murphy Test Positive Height (Feet): 5 Height (Inches): 5.00 Weight (Pounds): 125 Objective Debilitated AA woman NCAT (+) trach coarse ronchi RR obese abd, (+) GT no edema Celio Vaughan MD Mar 18, 2019 22:59
[2019-03-19] VITALS (25 sets, daily range): BP systolic 107–167; BP diastolic 31–92
--- NOTE | 2019-03-19 | NUR ---
NURSE NOTES: Vital signs are stable. Patient has a lot of secretions, frequent suctioning provided. NPO for J-Tube conversion.
[2019-03-19] MEDS: D5 1/2NS 1,000 ML IV SCH ×2 (00:46→20:48)
[2019-03-19] MEDS: Metoclopramide 10mg/2ml Inj IVP SCH ×4 (01:33→19:43)
--- NOTE | 2019-03-19 02:00 | NUR ---
NURSE NOTES: No change in patient's condition, still having alot of secretions. Frequent suctioning provided. Turned and repositioned with daughter at bedside.
[2019-03-19] MEDS: Albuterol/Ipratropium 3ml neb HHN SCH ×6 (03:12→22:28)
[2019-03-19] MEDS: Acetylcysteine 20% Soln 4ml HHN SCH ×6 (03:13→22:29)
--- NOTE | 2019-03-19 04:00 | NUR ---
NURSE NOTES: No change in patient's condition. Vital signs are stable. Bed bath, linen change and oral care provided. Patient very congested with alot of sputum- frequent oral and tracheal suction provided.
--- NOTE | 2019-03-19 06:00 | NUR ---
NURSE NOTES: Secretions decreased. no more signs of nausea and vomiting noted at the moment. Vital signs are stable.
--- NOTE | 2019-03-19 07:20 | NUR ---
NURSE NOTES: Received report from JEANNINE Vieira. Patient is obtunded. SR on the monitor. Anita 6 XLT with FiO2 28%, T-piece. 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 Purewick intact. Right upper arm PICC intact, clean and running with D5 1/2NS@50ml/hr. kept dry, clean, comfortable and HOB>30. Will continue plan of care.
--- NOTE | 2019-03-19 07:30 | NUR ---
HAND-OFF: Report given to JEANNINE Ruiz.
--- NOTE | 2019-03-19 07:32 | General Progress Note ---
Assessment/Plan Problem List: (1) Seizure ICD Codes: R56.9 - Unspecified convulsions SNOMED: 32148160 (2) Anemia ICD Codes: D64.9 - Anemia, unspecified SNOMED: 316169512 Qualifiers: Qualified Codes: D64.9 - Anemia, unspecified (3) Sepsis ICD Codes: A41.9 - Sepsis, unspecified organism SNOMED: 22968028, 406023121 Qualifiers: Qualified Codes: A41.9 - Sepsis, unspecified organism (4) Respiratory failure with hypoxia ICD Codes: J96.91 - Respiratory failure, unspecified with hypoxia SNOMED: 64853200219482445 Qualifiers: Qualified Codes: J96.21 - Acute and chronic respiratory failure with hypoxia (5) HCAP (healthcare-associated pneumonia) ICD Codes: J18.9 - Pneumonia, unspecified organism SNOMED: 719114810, 057979277 (6) Sacral decubitus ulcer ICD Codes: L89.159 - Pressure ulcer of sacral region, unspecified stage SNOMED: 755247233 (7) HTN (hypertension) ICD Codes: I10 - Essential (primary) hypertension SNOMED: 21309876 (8) Chronic vegetative state ICD Codes: R40.3 - Persistent vegetative state SNOMED: 91346029 (9) Chronic respiratory failure ICD Codes: J96.10 - Chronic respiratory failure, unspecified whether with hypoxia or hypercapnia SNOMED: 66858018 (10) Limited mobility ICD Codes: Z74.09 - Other reduced mobility SNOMED: 6411751 Status: stable, progressing Assessment/Plan: vent as needed resp rx abx per id ivf sz rx j tube placement Subjective ROS Limited/Unobtainable: No Constitutional: Reports: malaise, weakness HEENT: Reports: no symptoms Cardiovascular: Reports: no symptoms Respiratory: Reports: cough, shortness of breath Gastrointestinal/Abdominal: Reports: vomiting Genitourinary: Reports: no symptoms Neurologic/Psychiatric: Reports: pre-existing deficit, seizure Endocrine: Reports: no symptoms Hematologic/Lymphatic: Reports: no symptoms Allergies: Coded Allergies: CODEINE (Verified Allergy, Unknown, HIVES, 09/15/09) All Systems: reviewed and negative except above Subjective vomiting yesterday. not tolerating feeds. dtr agreed to j tube placement Objective Last 24 Hour Vital Signs Date Time Temp Pulse Resp B/P (MAP) Pulse Ox O2 Delivery O2 Flow Rate FiO2 12/19/19 07:17 86 27 144/59 (87) 100 86 03/19/19 07:01 100 T-Piece 5.0 28 03/19/19 07:00 95 27 167/77 (107) 99 95 03/19/19 06:00 95 23 146/54 (84) 98 95 03/19/19 05:00 88 30 133/63 (86) 99 88 03/19/19 04:00 T-piece 6.0 T-piece 6.0 03/19/19 04:00 6.0 28 03/19/19 04:00 98.4 94 17 131/61 (84) 98 94 03/19/19 03:13 90 19 100 T-Piece 6.0 28 85 19 100 03/19/19 03:09 87 03/19/19 03:00 85 23 132/59 (83) 100 85 03/19/19 02:00 92 19 135/58 (83) 100 92 03/19/19 01:28 98 T-Piece 6.0 28 03/19/19 01:00 97 131/92 (105) 100 97 03/19/19 00:00 T-piece 6.0 T-piece 6.0 03/19/19 00:00 97.8 87 23 127/52 (77) 98 87 03/18/19 23:32 89 03/18/19 23:00 86 25 118/49 (72) 100 86 03/18/19 22:39 92 25 100 T-Piece 6.0 28 89 25 100 03/18/19 22:00 97 25 118/53 (74) 100 97 03/18/19 21:00 88 28 105/41 (62) 99 88 03/18/19 20:00 T-piece 6.0 T-piece 6.0 03/18/19 20:00 6.0 28 03/18/19 20:00 97.9 97 24 104/44 (64) 100 97 03/18/19 20:00 103 03/18/19 19:00 109 18 103/70 (81) 100 03/18/19 18:48 100 20 100 T-Piece 6.0 28 102 21 99 03/18/19 18:47 98 T-Piece 6.0 28 03/18/19 18:22 101 20 124/75 (91) 98 19 18:17 173/147 03/18/19 18:00 109 19 124/75 (91) 100 03/18/19 17:00 93 20 137/84 (101) 100 03/18/19 16:00 91 03/18/19 16:00 98.0 86 24 123/52 (75) 100 03/18/19 16:00 6.0 28 03/18/19 16:00 T-piece 6.0 T-piece 6.0 03/18/19 15:07 80 20 100 T-Piece 6.0 28 82 20 100 03/18/19 15:00 84 26 122/68 (86) 100 03/18/19 14:00 72 15 107/49 (68) 100 03/18/19 13:00 72 27 94/41 (58) 100 03/18/19 12:28 99 T-Piece 6.0 28 03/18/19 12:00 98.1 78 24 90/39 (56) 99 03/18/19 12:00 T-piece 6.0 T-piece 6.0 03/18/19 12:00 74 03/18/19 12:00 6.0 28 03/18/19 11:05 82 26 94/39 (57) 100 03/18/19 11:00 81 23 81/37 (52) 100 03/18/19 10:39 78 22 100 T-Piece 6.0 28 80 22 100 03/18/19 10:00 83 27 122/52 (75) 100 03/18/19 09:00 96 28 124/58 (80) 100 03/18/19 08:00 T-piece 6.0 03/18/19 08:00 81 03/18/19 08:00 6.0 28 03/18/19 08:00 98.2 81 28 95/39 (57) 100 Intake and Output 03/18/19 03/19/19 19:00 07:00 Intake Total 1130 ml 511.62 ml Output Total 203 ml 400 ml Balance 927 ml 111.62 ml Free Water 90 ml IV Total 650 ml 511.62 ml Tube Feeding 390 ml Output Urine Total 203 ml 400 ml # Voids 2 # Bowel Movements 1 2 Laboratory Tests 03/18/19 12:27: Arterial Blood pH 7.392, Arterial Blood Partial Pressure CO2 44.6, Arterial Blood Partial Pressure O2 74.9L, Arterial Blood HCO3 26.5H, Arterial Blood Oxygen Saturation 93.5L, Arterial Blood Base Excess 1.4, Murphy Test Positive Height (Feet): 5 Height (Inches): 5.00 Weight (Pounds): 130 Objective General Appearance: WD/WN, confused. on trach collar Neck: supple Cardiovascular: normal rate, regular rhythm Respiratory/Chest: chest wall non-tender, rhonchi - bilaterally(minimal) Abdomen: normal bowel sounds, non tender, soft, no organomegaly Edema: no edema noted Arm (L), no edema noted Arm (R), no edema noted Leg (L), no edema noted Leg (R), no edema noted Pedal (L), no edema noted Pedal (R), no edema noted Generalized Neurologic: disoriented, unresponsive, aphasia Irvin Beltrán MD Mar 19, 2019 07:32
--- NOTE | 2019-03-19 07:35 | NUR ---
NURSE NOTES: Seen by Dr. Beltrán and assessed patient. Updated patient's status. No new orders at this time.
--- NOTE | 2019-03-19 08:20 | NUR ---
NURSE NOTES: Seen by Dr. Jm Liriano and assessed patient.
--- NOTE | 2019-03-19 08:22 | Infectious Diseases Prog Note ---
Assessment/Plan Assessment/Plan A 1. Providencia & Klebsiella pneumonia treated 2. respiratory failure 3. hypertension 4. CVA 5. dementia 6. sacral decubitus ulcer 7. rectal VRE colonization 8. Anemia 9. Proteus UTI 10. Acute renal failure 11. Leukocytosis resolved P 1.Observe off antibiotic 2. Frequent suctioning 3. Remove PICC line before discharge Subjective ROS Limited/Unobtainable: Yes Constitutional: Denies: fever Allergies: Coded Allergies: CODEINE (Verified Allergy, Unknown, HIVES, 09/15/09) Objective Vital Signs Last 24 Hour Vital Signs Date Time Temp Pulse Resp B/P (MAP) Pulse Ox O2 Delivery O2 Flow Rate FiO2 03/19/19 07:51 108 22 100 T-Piece 6.0 28 91 22 100 03/19/19 07:17 86 27 144/59 (87) 100 86 03/19/19 07:01 100 T-Piece 5.0 28 03/19/19 07:00 95 27 167/77 (107) 99 95 03/19/19 06:00 95 23 146/54 (84) 98 95 03/19/19 05:00 88 30 133/63 (86) 99 88 03/19/19 04:00 T-piece 6.0 T-piece 6.0 03/19/19 04:00 6.0 28 03/19/19 04:00 98.4 94 17 131/61 (84) 98 94 03/19/19 03:13 90 19 100 T-Piece 6.0 28 85 19 100 03/19/19 03:09 87 03/19/19 03:00 85 23 132/59 (83) 100 85 03/19/19 02:00 92 19 135/58 (83) 100 92 03/19/19 01:28 98 T-Piece 6.0 28 03/19/19 01:00 97 131/92 (105) 100 97 03/19/19 00:00 T-piece 6.0 T-piece 6.0 03/19/19 00:00 97.8 87 23 127/52 (77) 98 87 03/18/19 23:32 89 03/18/19 23:00 86 25 118/49 (72) 100 86 03/18/19 22:39 92 25 100 T-Piece 6.0 28 89 25 100 03/18/19 22:00 97 25 118/53 (74) 100 97 03/18/19 21:00 88 28 105/41 (62) 99 88 03/18/19 20:00 T-piece 6.0 T-piece 6.0 03/18/19 20:00 6.0 28 03/18/19 20:00 97.9 97 24 104/44 (64) 100 97 03/18/19 20:00 103 03/18/19 19:00 109 18 103/70 (81) 100 03/18/19 18:48 100 20 100 T-Piece 6.0 28 102 21 99 03/18/19 18:47 98 T-Piece 6.0 28 03/18/19 18:22 101 20 124/75 (91) 98 03/18/19 18:17 173/147 03/18/19 18:00 109 19 124/75 (91) 100 03/18/19 17:00 93 20 137/84 (101) 100 03/18/19 16:00 91 03/18/19 16:00 98.0 86 24 123/52 (75) 100 03/18/19 16:00 6.0 28 03/18/19 16:00 T-piece 6.0 T-piece 6.0 03/18/19 15:07 80 20 100 T-Piece 6.0 28 82 20 100 03/18/19 15:00 84 26 122/68 (86) 100 03/18/19 14:00 72 15 107/49 (68) 100 03/18/19 13:00 72 27 94/41 (58) 100 03/18/19 12:28 99 T-Piece 6.0 28 03/18/19 12:00 98.1 78 24 90/39 (56) 99 03/18/19 12:00 T-piece 6.0 T-piece 6.0 03/18/19 12:00 74 03/18/19 12:00 6.0 28 03/18/19 11:05 82 26 94/39 (57) 100 03/18/19 11:00 81 23 81/37 (52) 100 03/18/19 10:39 78 22 100 T-Piece 6.0 28 80 22 100 03/18/19 10:00 83 27 122/52 (75) 100 03/18/19 09:00 96 28 124/58 (80) 100 Height (Feet): 5 Height (Inches): 5.00 Weight (Pounds): 130 HEENT: status post trach Respiratory/Chest: other - on T bar, few rhochi, Cardiovascular: tachycardia, other - R arm PICC line Abdomen: soft, non tender, other - GT feeding Extremities: no edema Neurologic/Psychiatric: unresponsiveness, aphasia Laboratory Tests Test 03/18/19 12:27 Arterial Blood pH 7.392 (7.350-7.450) Arterial Blood Partial Pressure CO2 44.6 mmHg (35.0-45.0) Arterial Blood Partial Pressure O2 74.9 mmHg (75.0-100.0) L Arterial Blood HCO3 26.5 mmol/L (22.0-26.0) H Arterial Blood Oxygen Saturation 93.5 % (95-100) L Arterial Blood Base Excess 1.4 (-2-2) Murphy Test Positive Current Medications Medications (Trade) Dose Ordered Sig/Maicol Route PRN Reason Start Time Stop Time Status Last Admin Dose Admin Acetylcysteine (Mucomyst) 200 mg Q4HRT [facility] 03/18/19 19:00 04/17/19 18:59 03/19/19 07:00 Albuterol/ Ipratropium (Albuterol/ Ipratropium) 3 ml Q4HRT [facility] 03/15/19 03:00 03/20/19 02:59 03/19/19 07:00 Atropine Sulfate (Atropine Opth Adriana) 2 drop TID SL 03/07/19 09:00 04/06/19 08:59 03/18/19 17:16 Bacitracin (Bacitracin 15gm tube) 1 applic THREE TIMES A DAY TOPIC 02/28/19 18:30 03/30/19 18:29 03/18/19 17:16 Chlorhexidine Gluconate (Cesilia-Hex 2%) 1 applic DAILY@1999 TOPIC 03/12/19 20:00 04/11/19 19:59 03/18/19 20:09 Dextrose/Sodium Chloride 1,000 ml @ 50 mls/hr Q20H IV 03/17/19 08:30 04/16/19 08:29 03/19/19 00:46 Famotidine (Pepcid) 20 mg BID GT 03/02/19 18:00 04/01/19 17:59 03/18/19 17:15 Heparin Sodium (Porcine) (Heparin 5000 units/ml) 5,000 units EVERY 12 HOURS SUBQ 03/15/19 21:00 03/23/19 23:14 03/18/19 20:10 Hydralazine HCl (Apresoline) 10 mg Q4H PRN IV For High Blood Pressure 03/12/19 09:00 04/11/19 08:59 03/18/19 18:17 Levetiracetam (Keppra) 750 mg Q12HR GT 03/15/19 21:00 03/23/19 23:29 03/18/19 20:09 Metoclopramide HCl (Reglan) 5 mg Q6H IVP 03/10/19 02:00 03/24/19 01:59 03/19/19 01:33 Ondansetron HCl (Zofran) 4 mg Q4H PRN IVP Nausea & Vomiting 03/18/19 18:15 04/17/19 18:14 03/19/19 00:54 Potassium Chloride (K-Dur) 20 meq TWICE A DAY GT 03/12/19 09:00 04/11/19 08:59 03/18/19 17:16 Chauncey Liriano MD Mar 19, 2019 08:22
[2019-03-19] MEDS: levETIRAcetam 500mg/5ml Liquid GT SCH ×2 (08:23→21:02)
[2019-03-19] MEDS: Bacitracin Oint 15gm Tube TOPIC SCH ×3 (08:24→17:07)
[2019-03-19] MEDS: Heparin 5000 units/ml inj SUBQ SCH ×2 (08:24→20:56)
--- NOTE | 2019-03-19 08:42 | NUR ---
NURSE NOTES: Seen by Dr. Cortez. No new orders at this time.
--- NOTE | 2019-03-19 09:18 | NUR ---
NURSE NOTES:WOUND CARE FOLLOW-UP NOTES: Wound in web space L index and L thumb extending into palm of L hand with semi-detached necrotic cap,surrounding fibrinous slough. Borders are macerated. Wound is malodorous. Periwound without erythema or elevation in skin temp.(L)5.4cm x (W)3cm. R ischial wound resolved. Hyperpigmentation from previous injury noted. Full thickness pressure injury L ischium(L)0.7cm x (W)0.8. Base of wound is pink hypergranular with macerated borders.Hyperpigmentation periwound. Hyperpigmentation noted to sacrum with small area of shearing (L)0.4cm x (W)0.5cm. Both heels are dry but blanchable. Bilat foot drop noted. Good hand hygiene provided.L hand wound swabbed with Betadine and covered with Kerlix drsg. In addition Kerlix gauzed weaved between each finger to allow for air flow. Soft Kerlix roll placed in each palm to minimize hand contracture Wound Tx are effective and continued as ordered. All wound prevention protocols continued as care-planned.
--- NOTE | 2019-03-19 09:50 | NUR ---
NURSE NOTES: Seen by Dr. Vaughan and assessed patient. Updated patient's status. Possible Jtube placement tomorrow. He said he will put some orders. Will follow up.
--- NOTE | 2019-03-19 11:40 | NUR ---
NURSE NOTES: Seen by wound care nursed and assessed patient and changed dressing. Kept dry, clean, comfortable and HOB>30. Will continue plan of care.
--- NOTE | 2019-03-19 11:50 | NUR ---
RD ASSESSMENT & RECOMMENDATIONS SEE CARE ACTIVITY FOR COMPLETE ASSESSMENT DAILY ESTIMATED NEEDS: Needs based on Pulmonary, wounds, bedbound/ 61kg adj 25-30 kcals/kg 6453-0033 total kcals 1.25-2 g protein/kg 76-122 g total protein 25-30 mL/kg 7517-9267 total fluid mLs NUTRITION DIAGNOSIS: * Increased kcal/prot needs R/T wound healing as evidenced by BL buttocks and sacral wound photos, refer to WC eval. * Swallowing difficulty R/T respiratory status as evidenced by pt on T-collar, now back the vent, PEG dep. CURRENT TF:Glucerna 1.5 @ 25ml/hr x 24 hrs - currently HELD d/t emesis ENTERAL NUTRITION RECOMMENDATIONS: Glucerna 1.5 @ 45ml/hr x 24 hrs to provide 1080ml, 1620kcal, 89g prot, 820ml free water - As medically able, rec to increase goal rate to 45ml/hr x24 hrs to meet 100% est kcal/prot needs - HOB over 30 degrees - Water flush of 170ml q 6 hrs * W/ continued regurgitation/ emesis, rec Osmolite 1.5 for GI tolerance. Rec goal of 45ml/hr to provide: 1080ml, 1620 kcal, 68g pro, 823ml free H20. * Add Prosource 1 pack daily to provide additional 11g pro. ADDITIONAL RECOMMENDATIONS: 1) Weekly weights 2) Wound healing: Add Cristian 1pkt BID w/ good TF tolerance + MVI x1 daily 3) Monitor lytes, replete as needed 4) Monitor BGs closely, need for NISS (wnl) 5) Monitor TF tolerance: rec Tf change as above if not .
--- NOTE | 2019-03-19 12:30 | NUR ---
NURSE NOTES: Repositioned patient and Oral and trach suction provided.
--- NOTE | 2019-03-19 12:53 | Nephrology Progress Note ---
Assessment/Plan Problem List: (1) Acute renal failure (ARF) Assessment: Cr stable (2) Chronic respiratory failure (3) Anemia (4) Sepsis Assessment Acute renal failure Respiratory failure - Trach Low Mag- Low k , Low Na Anemia UTI / Sepsis Proteinuria / HypoAlbuminemia high Trigs Sz decubs bed bound DNR Plan lab reviewed GT feeding increased- NOT TOLERATING bolus Albumin as needed K and Mag and Phos supplement as needed Hydrate as needed Urine studies avoid Nephrotoxics mag K Phos supplements as needed monitor renal parameters Subjective ROS Limited/Unobtainable: Yes Objective Objective Last 24 Hour Vital Signs Date Time Temp Pulse Resp B/P (MAP) Pulse Ox O2 Delivery O2 Flow Rate FiO2 03/19/19 12:39 100 T-Piece 5.0 28 03/19/19 12:00 98.7 111 25 133/74 (93) 100 111 03/19/19 12:00 92 03/19/19 11:18 89 22 100 T-Piece 6.0 28 90 22 100 03/19/19 11:00 91 24 123/81 (95) 100 91 03/19/19 10:00 94 24 143/49 (80) 100 94 03/19/19 09:00 94 24 107/41 (63) 98 94 03/19/19 08:00 T-piece 6.0 T-piece 6.0 03/19/19 08:00 6.0 28 03/19/19 08:00 86 03/19/19 08:00 98.2 93 23 134/49 (77) 100 93 03/19/19 07:51 108 22 100 T-Piece 6.0 28 91 22 100 03/19/19 07:17 86 27 144/59 (87) 100 86 03/19/19 07:01 100 T-Piece 5.0 28 03/19/19 07:00 95 27 167/77 (107) 99 95 03/19/19 06:00 95 23 146/54 (84) 98 95 03/19/19 05:00 88 30 133/63 (86) 99 88 03/19/19 04:00 T-piece 6.0 T-piece 6.0 03/19/19 04:00 6.0 28 03/19/19 04:00 98.4 94 17 131/61 (84) 98 94 03/19/19 03:13 90 19 100 T-Piece 6.0 28 85 19 100 03/19/19 03:09 87 03/19/19 03:00 85 23 132/59 (83) 100 85 03/19/19 02:00 92 19 135/58 (83) 100 92 03/19/19 01:28 98 T-Piece 6.0 28 03/19/19 01:00 97 131/92 (105) 100 97 03/19/19 00:00 T-piece 6.0 T-piece 6.0 03/19/19 00:00 97.8 87 23 127/52 (77) 98 87 03/18/19 23:32 89 03/18/19 23:00 86 25 118/49 (72) 100 86 03/18/19 22:39 92 25 100 T-Piece 6.0 28 89 25 100 03/18/19 22:00 97 25 118/53 (74) 100 97 03/18/19 21:00 88 28 105/41 (62) 99 88 03/18/19 20:00 T-piece 6.0 T-piece 6.0 03/18/19 20:00 6.0 28 03/18/19 20:00 97.9 97 24 104/44 (64) 100 97 03/18/19 20:00 103 03/18/19 19:00 109 18 103/70 (81) 100 03/18/19 18:48 100 20 100 T-Piece 6.0 28 102 21 99 03/18/19 18:47 98 T-Piece 6.0 28 03/18/19 18:22 101 20 124/75 (91) 98 03/18/19 18:17 173/147 03/18/19 18:00 109 19 124/75 (91) 100 03/18/19 17:00 93 20 137/84 (101) 100 03/18/19 16:00 91 03/18/19 16:00 98.0 86 24 123/52 (75) 100 03/18/19 16:00 6.0 28 03/18/19 16:00 T-piece 6.0 T-piece 6.0 03/18/19 15:07 80 20 100 T-Piece 6.0 28 82 20 100 03/18/19 15:00 84 26 122/68 (86) 100 03/18/19 14:00 72 15 107/49 (68) 100 03/18/19 13:00 72 27 94/41 (58) 100 Intake and Output 03/18/19 03/19/19 18:59 06:59 Intake Total 1155 ml 511.62 ml Output Total 233 ml 350 ml Balance 922 ml 161.62 ml Free Water 90 ml IV Total 650 ml 511.62 ml Tube Feeding 415 ml Output Urine Total 233 ml 350 ml # Voids 2 # Bowel Movements 1 2 Height (Feet): 5 Height (Inches): 5.00 Weight (Pounds): 130 General Appearance: no apparent distress, lethargic EENT: other - trach to O2 Cardiovascular: tachycardia Respiratory/Chest: decreased breath sounds Abdomen: distended Objective no change Eric Cortez MD Mar 19, 2019 12:53
--- NOTE | 2019-03-19 14:02 | NUR ---
NURSE NOTES: Repositioned patient.
--- NOTE | 2019-03-19 15:44 | Surgery Progress Note ---
Surgery Progress Note Subjective Additional Comments further breakdown of hand wound. may consider debridement cont with Betadine to see if can get more dry Objective Last 24 Hour Vital Signs Date Time Temp Pulse Resp B/P (MAP) Pulse Ox O2 Delivery O2 Flow Rate FiO2 03/19/19 15:04 89 20 100 T-Piece 6.0 28 94 20 100 03/19/19 15:00 90 25 145/38 (73) 100 03/19/19 14:00 103 22 132/57 (82) 99 103 03/19/19 13:00 97 22 143/84 (103) 99 97 03/19/19 12:39 100 T-Piece 5.0 28 03/19/19 12:00 6.0 28 03/19/19 12:00 98.7 111 25 133/74 (93) 100 111 03/19/19 12:00 T-piece 6.0 T-piece 6.0 03/19/19 12:00 92 03/19/19 11:18 89 22 100 T-Piece 6.0 28 90 22 100 03/19/19 11:00 91 24 123/81 (95) 100 91 03/19/19 10:00 94 24 143/49 (80) 100 94 03/19/19 09:00 94 24 107/41 (63) 98 94 03/19/19 08:00 T-piece 6.0 T-piece 6.0 03/19/19 08:00 6.0 28 03/19/19 08:00 86 03/19/19 08:00 98.2 93 23 134/49 (77) 100 93 03/19/19 07:51 108 22 100 T-Piece 6.0 28 91 22 100 03/19/19 07:17 86 27 144/59 (87) 100 86 03/19/19 07:01 100 T-Piece 5.0 28 03/19/19 07:00 95 27 167/77 (107) 99 95 03/19/19 06:00 95 23 146/54 (84) 98 95 03/19/19 05:00 88 30 133/63 (86) 99 88 03/19/19 04:00 T-piece 6.0 T-piece 6.0 03/19/19 04:00 6.0 28 03/19/19 04:00 98.4 94 17 131/61 (84) 98 94 03/19/19 03:13 90 19 100 T-Piece 6.0 28 85 19 100 03/19/19 03:09 87 03/19/19 03:00 85 23 132/59 (83) 100 85 03/19/19 02:00 92 19 135/58 (83) 100 92 03/19/19 01:28 98 T-Piece 6.0 28 03/19/19 01:00 97 131/92 (105) 100 97 03/19/19 00:00 T-piece 6.0 T-piece 6.0 03/19/19 00:00 97.8 87 23 127/52 (77) 98 87 03/18/19 23:32 89 03/18/19 23:00 86 25 118/49 (72) 100 86 03/18/19 22:39 92 25 100 T-Piece 6.0 28 89 25 100 03/18/19 22:00 97 25 118/53 (74) 100 97 03/18/19 21:00 88 28 105/41 (62) 99 88 03/18/19 20:00 T-piece 6.0 T-piece 6.0 03/18/19 20:00 6.0 28 03/18/19 20:00 97.9 97 24 104/44 (64) 100 97 03/18/19 20:00 103 03/18/19 19:00 109 18 103/70 (81) 100 03/18/19 18:48 100 20 100 T-Piece 6.0 28 102 21 99 03/18/19 18:47 98 T-Piece 6.0 28 03/18/19 18:22 101 20 124/75 (91) 98 03/18/19 18:17 173/147 03/18/19 18:00 109 19 124/75 (91) 100 03/18/19 17:00 93 20 137/84 (101) 100 03/18/19 16:00 91 03/18/19 16:00 98.0 86 24 123/52 (75) 100 03/18/19 16:00 6.0 28 03/18/19 16:00 T-piece 6.0 T-piece 6.0 I&O Intake and Output 03/18/19 03/19/19 19:00 07:00 Intake Total 1130 ml 511.62 ml Output Total 203 ml 400 ml Balance 927 ml 111.62 ml Free Water 90 ml IV Total 650 ml 511.62 ml Tube Feeding 390 ml Output Urine Total 203 ml 400 ml # Voids 2 # Bowel Movements 1 2 Dressing: saturated Wound: other Drains: other Cardiovascular: RSR Respiratory: decreased breath sounds Abdomen: soft, present bowel sounds Extremities: no cyanosis, other Plan Problems: (1) Sacral decubitus ulcer Assessment & Plan: This is a 83-year-old female with multiple medical committees that is currently admitted for medical care and management and identified to have multiple wounds requiring care. On admission patient noted to have a resolved sacral decubitus ulcer. Has had prior care and is well-healed at this time. Will ensure it does not open up again. Patient has a right ischial decubitus ulcer that is resolved. Scar intact and well formed. Will monitor to ensure it does not open up again. Patient has a left ischial decubitus ulcer that can be identified to be stage IV with palpable bone that has been resolving as noted by the periwound tissue and scar but open area approximately 1 cm x 1.5 cm few millimeters deep to bone identified. Unsure if this is been to be completely healed prior and has since opened or if has been healing at this level. No foul odor no drainage was unsure local wound care until healed Bilateral heels soft without signs of injury Resolving pressure injury L ischium(L)1.8cm x (W)1cm.Scattered biofilm at base of wound. Edges flat and adherent with surrounding hyperpigmentation. No odor or exudate noted. Sacrum is pale pink with surrounding hyperpigmentation. Hyperpigmentation R ischium with small sheared area centrally.No areas of erythema or exudate noted. Both heels are soft but blanchable. Skin Assessed under collar of trach and no evidence of skin breakdown noted. All wound Tx. are effective and continued as ordered. Pt ahs an APM/Belén mattress overlay and is being repositioned per protocols and per tolerance.No new skin concerns noted. Full thickness pressure injury L Ischium with small amt biofilm (L)1.8cm x (W) 1cm. Surrounding pink hyperpigmentation. No odor or exudate noted. Berino hyperpigmentation from previous wound noted to sacrum. Pt also noted to have Cat 2 Skin Tear dorsal L hand, L 5th metatarsal extending into palm of hand. 80% skin flap in situ.Both heels are dry firm and blanchable. No other skin concerns noted. R ischial wound has resolved. Berino epithelial with surrounding hyperpigmentation. from historical wound. Full thickness pressure injury L ischium. Berino granulation at base of wound. Borders are macerated with Surrounding hyperpigmentation.Small amt non-odorous serous exudate noted.(L)0.7cm x (W)0.8cm. Skin hyperpigmentation from historical wound noted to Sacrum. Small sheared area noted to sacrococcygeal area.(L)0.4cm x (W)0.3cm.Small amt sanguineous exudate noted. Reabsorbed blister with semi-detached dry necrotic cap noted to web space of L thumb and L index fingers extending into palm of L hand. No odor or exudate noted. Skin assessed under tracheal collar and no erythema or evidence of Skin Breakdown noted. NO new skin concerns noted . Good hand hygiene provided to both hands. R hand contracted and fisted. Fingernails trimmed. Wound care provided along with Primary nurse. Wound Tx continued as ordered. New order obtained from to apply Betadine to wound L hand Daily. Tx done as ordered. L hand wrapped with kerlix weaving kerlix between fingers to separate fingers. Moisture Barrier applied to sacrum ,R ischium. Each site covered with Optifoam drsg. Both lower ext washed and moisturized. Cavilon Skin Barrier applied to both heels.Each heel covered with Optifoam drsgs. Pt positioned with pillows and both heels off-loaded with pillow. Tx.Plan: Apply Betadine to wound L hand. Cover with Gauze and wrap with Kerlix Daily and prn. Cleanse L ischial wound with Saline. Apply Therahoney. Apply Moisture Barrier periwound. Cover with Optifoam drsgevery 3 days and prn. Apply Moisture Barrier Paste to R ischium and Sacrum. Cover each area with Optifoam drsg. Change every 3 days and prn. Apply Cavilon Skin Barrier to both heels. Cover each heel with Optifoam drsg. Change every 7 days and prn. APM/BELÉN Mattress overlay. Reposition at least every 2hours or as tolerated. Off-load heels with pillow. Cleanse Blister Dorsal and palm of L hand with saline. Versatel One Silicone Contact Layer(Applied). Apply Silvasorb Gel. Wrap with Kerlix Gauze.Change every 7 days and prn. Apply Moisture Barrier to sacrum. Cover with Optifoam drsg. Change every 3 days and prn. Cleanse L ischial wound with saline. Apply Therahoney. Apply Moisture Barrier Paste periwound. Cover with Optifoam drsg. Change every 3 days and prn. Apply Cavilon Skin Barrier to both heels. Cover each heel with Optifoam drsg. Change every 7 days and prn. APM/BELÉN Mattress overlay. Reposition at least every 2hours or as tolerated. Off-load heels with pillow. Nutritional optimization We will monitor follow with recommendations cont with above upon d/c (2) Sepsis Assessment & Plan: IV abx as per ID trend labs improving wounds unlikely etiology likely respiratory imaging noted and okay abnormal lft's stable PICC on Abx in ICU for desaturation CXR with consolidation cont with frequent suctioning d/c planning possible placement found Evidence of left lower lobe pneumonia, also previously demonstrated Gastrostomy in good position Mild diastasis of the rectus abdominis musculature again demonstrated Retrosacral decubitus changes, better depicted on prior exam which included the pelvis Small hiatal hernia with evidence of trace gastroesophageal reflux Discussed with GI. Recommend GJ family still pending decision (3) Feeding by G-tube Assessment & Plan: DAILY ESTIMATED NEEDS: Needs based on Pulmonary, wounds, bedbound/ 61kg adj 25-30 kcals/kg 2163-0088 total kcals 1.25-2 g protein/kg 76-122 g total protein 25-30 mL/kg 1674-6541 total fluid mLs NUTRITION DIAGNOSIS: * Increased kcal/prot needs R/T wound healing as evidenced by BL buttocks and sacral wound photos, refer to eval. * Swallowing difficulty R/T respiratory status as evidenced by pt on T-collar, now back the vent, PEG dep. CURRENT TF:Glucerna 1.5 @ 25ml/hr x 24 hrs - currently HELD d/t emesis ENTERAL NUTRITION RECOMMENDATIONS: Glucerna 1.5 @ 45ml/hr x 24 hrs to provide 1080ml, 1620kcal, 89g prot, 820ml free water - As medically able, rec to increase goal rate to 45ml/hr x24 hrs to meet 100% est kcal/prot needs - HOB over 30 degrees - Water flush of 170ml q 6 hrs * W/ continued regurgitation/ emesis, rec Osmolite 1.5 for GI tolerance. Rec goal of 45ml/hr to provide: 1080ml, 1620 kcal, 68g pro, 823ml free H20. * Add Prosource 1 pack daily to provide additional 11g pro. ADDITIONAL RECOMMENDATIONS: 1) Weekly weights 2) Wound healing: Add Cristian 1pkt BID w/ good TF tolerance + MVI x1 daily 3) Monitor lytes, replete as needed 4) Monitor BGs closely, need for NISS (wnl) 5) Monitor TF tolerance: rec Tf change as above if not (4) Chronic vegetative state Assessment & Plan: incontinence of urine and stool. can soil dressings. nurses doing great job with monitoring and changing prn (5) Leukocytosis Walter Madera Mar 19, 2019 15:44
--- NOTE | 2019-03-19 15:52 | NUR ---
NURSE NOTES: Repositioned patient and oral care provided.
--- NOTE | 2019-03-19 16:50 | NUR ---
NURSE NOTES: Bed bath given and repositioned patient. Suction given.
--- NOTE | 2019-03-19 18:38 | Pulmonology Progress Note ---
Assessment/Plan Assessment/Plan Pulmonary Progress Note HPI This an 83-year-old female with history of tracheostomy, VDRF, feeding tube, admitted with Pneumonia, respiratory distress. Tolerating TC Past Medical History: VDRF, Trach, G tube, Hypertension, Cardiac disease, Dementia, Previous CVA, TIA, Seizure disorder, previous cancer Impression: Sepsis syndrome Pneumonia VDRF, Trach, G tube, Hypertension, Cardiac disease, Dementia, Previous CVA, Seizure disorder, Respiratory failure with hypoxia Anemia Sacral ulcer renal cyst Plan continue current AB TC as tolerated mucomyst and duoneb SNF meds as is Adjust oxygen as needed Monitor labs for change changes noted Patient is a DNR. No CPR. dc planning per family and primary impression, plan, and exam edited and reviewed in detail care discussed with RN Subjective Allergies: Coded Allergies: CODEINE (Verified Allergy, Unknown, HIVES, 09/15/09) Subjective on AC on mucomyst and duoneb noted congestion supportive care noted RT care reviewed overnight care reviewed Objective Vital Signs Noted Objective WDWN NAD contracted on vent reduced breath sounds bilaterally with scattered rhonchi same [id number] without MRG NABS nontender no HSM no CC minimal nonfocal nonverbal trach and gt reviewed and edited Laboratory Tests Noted Subjective ROS Limited/Unobtainable: No Allergies: Coded Allergies: CODEINE (Verified Allergy, Unknown, HIVES, 09/15/09) Objective Last 24 Hour Vital Signs Date Time Temp Pulse Resp B/P (MAP) Pulse Ox O2 Delivery O2 Flow Rate FiO2 03/19/19 18:00 100 21 138/37 (70) 100 03/19/19 17:00 94 24 151/31 (71) 100 03/19/19 16:00 T-piece 6.0 T-piece 6.0 03/19/19 16:00 97.1 103 18 165/51 (89) 98 03/19/19 16:00 96 03/19/19 16:00 6.0 28 03/19/19 15:04 89 20 100 T-Piece 6.0 28 94 20 100 03/19/19 15:00 90 25 145/38 (73) 100 03/19/19 14:00 103 22 132/57 (82) 99 103 03/19/19 13:00 97 22 143/84 (103) 99 97 03/19/19 12:39 100 T-Piece 5.0 28 03/19/19 12:00 6.0 28 03/19/19 12:00 98.7 111 25 133/74 (93) 100 111 03/19/19 12:00 T-piece 6.0 T-piece 6.0 03/19/19 12:00 92 03/19/19 11:18 89 22 100 T-Piece 6.0 28 90 22 100 03/19/19 11:00 91 24 123/81 (95) 100 91 03/19/19 10:00 94 24 143/49 (80) 100 94 03/19/19 09:00 94 24 107/41 (63) 98 94 03/19/19 08:00 T-piece 6.0 T-piece 6.0 03/19/19 08:00 6.0 28 03/19/19 08:00 86 03/19/19 08:00 98.2 93 23 134/49 (77) 100 93 03/19/19 07:51 108 22 100 T-Piece 6.0 28 91 22 100 03/19/19 07:17 86 27 144/59 (87) 100 86 03/19/19 07:01 100 T-Piece 5.0 28 03/19/19 07:00 95 27 167/77 (107) 99 95 03/19/19 06:00 95 23 146/54 (84) 98 95 03/19/19 05:00 88 30 133/63 (86) 99 88 03/19/19 04:00 T-piece 6.0 T-piece 6.0 03/19/19 04:00 6.0 28 03/19/19 04:00 98.4 94 17 131/61 (84) 98 94 03/19/19 03:13 90 19 100 T-Piece 6.0 28 85 19 100 03/19/19 03:09 87 03/19/19 03:00 85 23 132/59 (83) 100 85 03/19/19 02:00 92 19 135/58 (83) 100 92 03/19/19 01:28 98 T-Piece 6.0 28 03/19/19 01:00 97 131/92 (105) 100 97 03/19/19 00:00 T-piece 6.0 T-piece 6.0 03/19/19 00:00 97.8 87 23 127/52 (77) 98 87 03/18/19 23:32 89 03/18/19 23:00 86 25 118/49 (72) 100 86 03/18/19 22:39 92 25 100 T-Piece 6.0 28 89 25 100 03/18/19 22:00 97 25 118/53 (74) 100 97 03/18/19 21:00 88 28 105/41 (62) 99 88 03/18/19 20:00 T-piece 6.0 T-piece 6.0 03/18/19 20:00 6.0 28 03/18/19 20:00 97.9 97 24 104/44 (64) 100 97 03/18/19 20:00 103 03/18/19 19:00 109 18 103/70 (81) 100 03/18/19 18:48 100 20 100 T-Piece 6.0 28 102 21 99 03/18/19 18:47 98 T-Piece 6.0 28 Intake and Output 03/18/19 03/19/19 19:00 07:00 Intake Total 1130 ml 511.62 ml Output Total 203 ml 400 ml Balance 927 ml 111.62 ml Free Water 90 ml IV Total 650 ml 511.62 ml Tube Feeding 390 ml Output Urine Total 203 ml 400 ml # Voids 2 # Bowel Movements 1 2 Current Medications Medications (Trade) Dose Ordered Sig/Maicol Route PRN Reason Start Time Stop Time Status Last Admin Dose Admin Acetylcysteine (Mucomyst) 200 mg Q4HRT [facility] 03/18/19 19:00 04/17/19 18:59 03/19/19 14:43 Albuterol/ Ipratropium (Albuterol/ Ipratropium) 3 ml Q4HRT [facility] 03/15/19 03:00 03/20/19 02:59 03/19/19 14:43 Atropine Sulfate (Atropine Opth Adriana) 2 drop TID 03/07/19 09:00 04/06/19 08:59 03/19/19 17:07 Bacitracin (Bacitracin 15gm tube) 1 applic THREE TIMES A DAY TOPIC 02/28/19 18:30 03/30/19 18:29 03/19/19 17:07 Chlorhexidine Gluconate (Cesilia-Hex 2%) 1 applic DAILY@1999 TOPIC 03/12/19 20:00 04/11/19 19:59 03/18/19 20:09 Dextrose/Sodium Chloride 1,000 ml @ 50 mls/hr Q20H IV 03/17/19 08:30 04/16/19 08:29 03/19/19 00:46 Famotidine (Pepcid) 20 mg BID GT 03/02/19 18:00 04/01/19 17:59 03/19/19 17:07 Heparin Sodium (Porcine) (Heparin 5000 units/ml) 5,000 units EVERY 12 HOURS SUBQ 03/15/19 21:00 03/23/19 23:14 03/18/19 20:10 Hydralazine HCl (Apresoline) 10 mg Q4H PRN IV For High Blood Pressure 03/12/19 09:00 04/11/19 08:59 03/18/19 18:17 Levetiracetam (Keppra) 750 mg Q12HR GT 03/15/19 21:00 03/23/19 23:29 03/19/19 08:23 Metoclopramide HCl (Reglan) 5 mg Q6H IVP 03/10/19 02:00 03/24/19 01:59 03/19/19 13:06 Multivitamins (Multivitamins) 1 tab DAILY ORAL 03/20/19 09:00 04/19/19 08:59 Ondansetron HCl (Zofran) 4 mg Q4H PRN IVP Nausea & Vomiting 03/18/19 18:15 04/17/19 18:14 03/19/19 00:54 Potassium Chloride (K-Dur) 20 meq TWICE A DAY GT 03/12/19 09:00 04/11/19 08:59 03/19/19 17:06 Bg Moffett MD Mar 19, 2019 18:38
--- NOTE | 2019-03-19 19:21 | NUR ---
HAND-OFF: Report given to JEANNINE Sykes. Endorsed plan of care.
--- NOTE | 2019-03-19 19:30 | NUR ---
NURSE NOTES: Pt is contracted with sacral and ischial pressure sore covered with optifoam drsg dry and intact. On p 200 mattress. Turned q 2hrs prn with good skin care done.
--- NOTE | 2019-03-19 19:40 | NUR ---
NURSE NOTES: PATIENT RESPONSE TO NAME, OPEN EYES, DID NOT FOLLOW COMMANDS, RESPIRATION REGULAR, ON TRACH, FIO2 28% T- PIECE, O2 SATURATION OVER 98% NOTED, ABDOMEN SOFT, NO BM STATUS, G TUBE INTACT AND PATENT, NO N/V NOTED, KEPT HOB 30 DEGREES AND ASPIRATION PRECAUTION, VOID WITH PURE WICK, YELLOW URINE OUTED, PICC LINE TO RIGHT UPPER ARM, INTACT AND PATENT, ONGOING IV FLUID D5 1/2NS AT 50ML/HR VIA PICC LINE, ON P200 BED, KEPT SZ AND FALL PRECAUTION, MADE LOWER BED POSITION, ON BED ALARM AND LOCKED, PROVIDED CALL LIGHT WITHIN REACH BUT UNABLE TO USE STATUS, KEPT CONTINUE PLAN OF CARE.
[2019-03-19] MEDS: Dyna-Hex 2% Top Sol 2oz TOPIC SCH (19:43)
--- NOTE | 2019-03-19 20:00 | NUR ---
NURSE NOTES: Received pt with eyes open, respond to pain stimuli, SR on the monitor Bp stable, Pt on 28% T piece via trache, tolerating well, 02 sat 100 %, pt on and off drooling whitish saliva,suctioned via trache and by mouth, moderate amt of whitish tn tk secretions. HOB kept elevated watch for any resp. distress. Daughter at bedside, updated with pts condition, verbalized understanding. Will continue to monitor.
--- NOTE | 2019-03-19 20:30 | NUR ---
HAND-OFF: Report given to JEANNINE Howard.
--- NOTE | 2019-03-19 22:12 | NUR ---
NURSE NOTES: Zofran 4mg ivp was given due to pts constantly drooling some saliva, and daughter claimed that pt is threwing up.
--- NOTE | 2019-03-19 22:44 | General Progress Note ---
Assessment/Plan Status: stable, progressing Assessment/Plan: Assessment - N/V, periodic, including suctioning of feeds from mouth - suspect due to gastroparesis, possibly also from suctioning reflex - DTR now agrees with trialof G to J conversion - will arrange for or Sat - suction gently - Elevated Alk phos / LFT - CT negative - abd U/S negative - check hepatitis serologies - negative - Anemia with OB (-) stools - Resp failure, s/p Trach - dysphagia, s/p PEG --> s/p GT change - OBS - minor GT tract inflammation / infection - poor Px Recommendations - laxative PRN - antibiotic ointment to GT site PRN - aspiration precautions - elevate HOB - PPI - EGD with G to J in am at 0700 Subjective Allergies: Coded Allergies: CODEINE (Verified Allergy, Unknown, HIVES, 09/15/09) Subjective seen in am d/w staff pharmacist hospital for EGD with G to J at 0700 Objective Last 24 Hour Vital Signs Date Time Temp Pulse Resp B/P (MAP) Pulse Ox O2 Delivery O2 Flow Rate FiO2 03/19/19 22:30 94 20 100 T-Piece 5.0 28 81 20 100 03/19/19 20:00 T-piece 6.0 T-piece 6.0 03/19/19 20:00 98.2 88 22 114/49 (70) 100 03/19/19 20:00 6.0 28 03/19/19 20:00 86 03/19/19 19:27 100 T-Piece 5.0 28 03/19/19 19:24 91 20 100 T-Piece 5.0 28 85 20 100 03/19/19 19:00 94 24 135/54 (81) 100 03/19/19 18:00 100 21 138/37 (70) 100 03/19/19 17:00 94 24 151/31 (71) 100 03/19/19 16:00 T-piece 6.0 T-piece 6.0 03/19/19 16:00 97.1 103 18 165/51 (89) 98 03/19/19 16:00 96 03/19/19 16:00 6.0 28 03/19/19 15:04 89 20 100 T-Piece 6.0 28 94 20 100 03/19/19 15:00 90 25 145/38 (73) 100 03/19/19 14:00 103 22 132/57 (82) 99 103 03/19/19 13:00 97 22 143/84 (103) 99 97 03/19/19 12:39 100 T-Piece 5.0 28 03/19/19 12:00 6.0 28 03/19/19 12:00 98.7 111 25 133/74 (93) 100 111 03/19/19 12:00 T-piece 6.0 T-piece 6.0 03/19/19 12:00 92 03/19/19 11:18 89 22 100 T-Piece 6.0 28 90 22 100 03/19/19 11:00 91 24 123/81 (95) 100 91 03/19/19 10:00 94 24 143/49 (80) 100 94 03/19/19 09:00 94 24 107/41 (63) 98 94 03/19/19 08:00 T-piece 6.0 T-piece 6.0 03/19/19 08:00 6.0 28 03/19/19 08:00 86 03/19/19 08:00 98.2 93 23 134/49 (77) 100 93 03/19/19 07:51 108 22 100 T-Piece 6.0 28 91 22 100 03/19/19 07:17 86 27 144/59 (87) 100 86 03/19/19 07:01 100 T-Piece 5.0 28 03/19/19 07:00 95 27 167/77 (107) 99 95 03/19/19 06:00 95 23 146/54 (84) 98 95 03/19/19 05:00 88 30 133/63 (86) 99 88 03/19/19 04:00 T-piece 6.0 T-piece 6.0 03/19/19 04:00 6.0 28 03/19/19 04:00 98.4 94 17 131/61 (84) 98 94 03/19/19 03:13 90 19 100 T-Piece 6.0 28 85 19 100 03/19/19 03:09 87 03/19/19 03:00 85 23 132/59 (83) 100 85 03/19/19 02:00 92 19 135/58 (83) 100 92 03/19/19 01:28 98 T-Piece 6.0 28 03/19/19 01:00 97 131/92 (105) 100 97 03/19/19 00:00 T-piece 6.0 T-piece 6.0 03/19/19 00:00 97.8 87 23 127/52 (77) 98 87 03/18/19 23:32 89 03/18/19 23:00 86 25 118/49 (72) 100 86 Intake and Output 03/18/19 03/19/19 19:00 07:00 Intake Total 1130 ml 511.62 ml Output Total 203 ml 400 ml Balance 927 ml 111.62 ml Free Water 90 ml IV Total 650 ml 511.62 ml Tube Feeding 390 ml Output Urine Total 203 ml 400 ml # Voids 2 # Bowel Movements 1 2 Height (Feet): 5 Height (Inches): 5.00 Weight (Pounds): 130 Objective Debilitated AA woman NCAT (+) trach coarse ronchi RR obese abd, (+) GT no edema Celio Vaughan MD Mar 19, 2019 22:44
[2019-03-20] VITALS (22 sets, daily range): BP systolic 123–160; BP diastolic 47–97
--- NOTE | 2019-03-20 | NUR ---
NURSE NOTES: Suctioned tk lg frothy secretions . Oral care done.
--- NOTE | 2019-03-20 02:00 | NUR ---
NURSE NOTES: Sacral drsg changed . cleaned up pt.
[2019-03-20] MEDS: Metoclopramide 10mg/2ml Inj IVP SCH ×4 (02:09→20:40)
[2019-03-20] MEDS: Acetylcysteine 20% Soln 4ml HHN SCH ×6 (03:00→23:22)
--- NOTE | 2019-03-20 03:15 | Progress Note ---
DATE: 03/19/2019 CARDIOLOGY PROGRESS NOTE SUBJECTIVE: The patient continues to have difficulty with nutrition and is being recommended to undergo G to J-tube conversion. The patient has had over a week of ileus. OBJECTIVE: VITAL SIGNS: Blood pressure 114/49, pulse 88, respirations 22, afebrile. NECK: Trach site with thin secretions. LUNGS: Bilateral breath sounds with no wheezing. CARDIAC: Regular rhythm and rate. Normal S1, S2 with no new murmur. ABDOMEN: Slightly distended, but soft. EXTREMITIES: There is trace dependent edema. IMPRESSION: Stable from cardiovascular standpoint for GJ tube conversion. We will recheck laboratory studies prior to intervention. Current cardiovascular regimen appropriate. We will follow. Bg Hagen M.D. DR: IOANA JOB#: [id number] CC:
[2019-03-20 04:33] LABS: BASOPHILS % (AUTO) 0.9 % (0.0-2.0); EOSINOPHILS % (AUTO) 5.4 % (0.0-3.0); HEMATOCRIT 25.9 % (37.0-47.0); HEMOGLOBIN 8.2 G/DL (12.0-16.0); LYMPHOCYTES % (AUTO) 30.3 % (20.0-45.0); MEAN CORPUSCULAR VOLUME 85 FL (80-99); MONOCYTES % (AUTO) 5.3 % (1.0-10.0); NEUTROPHILS % (AUTO) 58.2 % (45.0-75.0); PLATELET COUNT 193 K/UL (150-450); RED BLOOD COUNT 3.05 M/UL (4.20-5.40); RED CELL DISTRIBUTION WIDTH 15.8 % (11.6-14.8); WHITE BLOOD COUNT 9.9 K/UL (4.8-10.8)
[2019-03-20 04:50] LABS: ALANINE AMINOTRANSFERASE 29 U/L (12-78); ALBUMIN 2.5 G/DL (3.4-5.0); ALBUMIN/GLOBULIN RATIO 0.5 (1.0-2.7); ALKALINE PHOSPHATASE 127 U/L (46-116); ANION GAP 5 mmol/L (5-15); ASPARTATE AMINO TRANSFERASE 25 U/L (15-37); BILIRUBIN,TOTAL 0.2 MG/DL (0.2-1.0); BLOOD UREA NITROGEN 11 mg/dL (7-18); CARBON DIOXIDE 29 MMOL/L (21-32); CHLORIDE 106 MMOL/L (98-107); CREATININE 1.1 MG/DL (0.55-1.30); POTASSIUM 4.3 MMOL/L (3.5-5.1); SODIUM 140 MMOL/L (136-145)
--- NOTE | 2019-03-20 05:26 | NUR ---
NURSE NOTES: Zofran 4mg ivp given due to pts threwing up saliva colored material.
--- NOTE | 2019-03-20 06:35 | NUR ---
NURSE NOTES: To GI lab via amna .With school bus monitor. VSS, report given to Jose PAEZ
[2019-03-20] MEDS ORDERED: fentaNYL 100 mcg/2 mL IV ONE (06:38)
[2019-03-20] MEDS ORDERED: NS 500ML IVPB ONE (07:00)
[2019-03-20] MEDS ORDERED: Propofol 200mg/20ml IV ONE (07:00)
--- NOTE | 2019-03-20 07:04 | Anethesia Preoperative Eval ---
Anesthesia Pre-op PMH/ROS General Date of Evaluation: Mar 20, 2019 Time of Evaluation: 06:50 Anesthesiologist: Juliana Flannery CRNA ASA Score: ASA 4 Mallampati Score Class I : Soft palate, uvula, fauces, pillars visible Class II: Soft palate, uvula, fauces visible Class III: Soft palate, base of uvula visible Class IV: Only hard plate visible Mallampati Classification: Class II Surgeon: Clement Diagnosis: vegetative state Surgical Procedure: EGD G-tube to J-tube Anesthesia History: none Family History: no anesthesia problems Allergies: Coded Allergies: CODEINE (Verified Allergy, Unknown, HIVES, 09/15/09) Medications: see eMAR Patient NPO?: Yes NPO Date: Mar 20, 2019 NPO Time: 00:00 Past Medical History Cardiovascular: Reports: HTN; Denies: CAD, [place], valve dz, arrhythmia, other Pulmonary: Reports: other - PNA, respiratory failure, trach; Denies: asthma, COPD, MALINA Gastrointestinal/Genitourinary: Reports: GERD, other - intractable vomiting; Denies: CRI, ESRD Neurologic/Psychiatric: Reports: dementia, TIA, other - seizures, vegetative state; Denies: CVA, depression/anxiety Endocrine: Denies: DM, hypothyroidism, steroids, other HEENT: Denies: cataract (L), cataract (R), glaucoma, [place] (L), [place] (R), other Hematology/Immune: Reports: anemia, other; Denies: DVT, bleeding disorder Musculoskeletal/Integumentary: Reports: OA, other - decubitus ulcer; Denies: RA, DJD, DDD, edema PMH Narrative: as noted above PSxH Narrative: see H & P Anesthesia Pre-op Phys. Exam Physician Exam Last Vital Signs Date Time Temp Pulse Resp B/P (MAP) Pulse Ox O2 Delivery O2 Flow Rate FiO2 03/20/19 04:00 T-piece 6.0 T-piece 6.0 03/20/19 04:00 86 03/20/19 04:00 97.8 23 158/80 (106) 100 03/20/19 04:00 28 Constitutional: NAD Neurologic: other - vegetative state Cardiovascular: RRR Respiratory: other - coarse rhonchi, copiuous trach secretions Gastrointestinal: S/NT/ND Airway Exam Mallampati Score: Class II Neck: Trach in situ TMD: > 3 FB ROM: limited Teeth: missing Dentures: no upper, no lower Anesthesia Pre-op A/P Labs Hematology Test 03/20/19 03:00 White Blood Count 9.9 K/UL (4.8-10.8) Red Blood Count 3.05 M/UL (4.20-5.40) L Hemoglobin 8.2 G/DL (12.0-16.0) L Hematocrit 25.9 % (37.0-47.0) L Mean Corpuscular Volume 85 FL (80-99) Mean Corpuscular Hemoglobin 27.0 PG (27.0-31.0) Mean Corpuscular Hemoglobin Concent 31.8 G/DL (32.0-36.0) L Red Cell Distribution Width 15.8 % (11.6-14.8) H Platelet Count 193 K/UL (150-450) Mean Platelet Volume 5.4 FL (6.5-10.1) L Neutrophils (%) (Auto) 58.2 % (45.0-75.0) Lymphocytes (%) (Auto) 30.3 % (20.0-45.0) Monocytes (%) (Auto) 5.3 % (1.0-10.0) Eosinophils (%) (Auto) 5.4 % (0.0-3.0) H Basophils (%) (Auto) 0.9 % (0.0-2.0) Chemistry Test 03/20/19 03:00 Sodium Level 140 MMOL/L (136-145) Potassium Level 4.3 MMOL/L (3.5-5.1) Chloride Level 106 MMOL/L (98-107) Carbon Dioxide Level 29 MMOL/L (21-32) Anion Gap 5 mmol/L (5-15) Blood Urea Nitrogen 11 mg/dL (7-18) Creatinine 1.1 MG/DL (0.55-1.30) Estimat Glomerular Filtration Rate mL/min (>60) Glucose Level 74 MG/DL (74-106) Calcium Level 9.0 MG/DL (8.5-10.1) Magnesium Level 1.5 MG/DL (1.8-2.4) L Total Bilirubin 0.2 MG/DL (0.2-1.0) Aspartate Amino Transf (AST/SGOT) 25 U/L (15-37) Alanine Aminotransferase (ALT/SGPT) 29 U/L (12-78) Alkaline Phosphatase 127 U/L (46-116) H Total Protein 7.6 G/DL (6.4-8.2) Albumin 2.5 G/DL (3.4-5.0) L Globulin 5.1 g/dL Albumin/Globulin Ratio 0.5 (1.0-2.7) L Studies Pre-op Studies: EKG - NSR with sinus arrhthmia Risk Assessment & Plan Assessment: ASA 4, ICU patient, stable to proceed Plan: MAC Status Change Before Surgery: No Pre-Antibiotics Given Within 1 Hr of Incision: No Juliana Flannery CRNA Mar 20, 2019 07:04
--- NOTE | 2019-03-20 07:08 | General Progress Note ---
Assessment/Plan Status: stable, progressing Assessment/Plan: Assessment - N/V, periodic, including suctioning of feeds from mouth - suspect due to gastroparesis, possibly also from suctioning reflex - DTR now agrees with trialof G to J conversion - suction gently - Elevated Alk phos / LFT - CT negative - abd U/S negative - check hepatitis serologies - negative - Anemia with OB (-) stools - Resp failure, s/p Trach - dysphagia, s/p PEG --> s/p GT change--> to get G--> J today - OBS, vegetative unresponsive state, bedbound state, contracted extremities, - minor GT tract inflammation / infection - treat locally - poor Prognosis Recommendations - laxative PRN - antibiotic ointment to GT site PRN - aspiration precautions - elevate HOB - PPI - EGD with G to J today POST PROCEDURE ADDENDUM EGD findings: - 3-4 cm hiatal hernia - severe Reflux esophagitis with circumferential ulceration of lower 1/2 of esophagus - retrograde propulsion of gastric contents into esophagus when patient strains or coughs - s/p G---> J conversion - Rec: BID IV PPI, GT to gravity or LIS, J tube feeds Subjective Allergies: Coded Allergies: CODEINE (Verified Allergy, Unknown, HIVES, 09/15/09) Subjective seen in am d/w DTR at length x 2 last night over the phone indications for G to J conversion explained DTR stated patient had multiple G to J conversions at [facility] Daughter encouraged to get [facility] records and bring to [facility] for MD review all DTR questions answered DTR agreed to proceed with EGD and G to J today Objective Last 24 Hour Vital Signs Date Time Temp Pulse Resp B/P (MAP) Pulse Ox O2 Delivery O2 Flow Rate FiO2 03/20/19 04:00 T-piece 6.0 T-piece 6.0 03/20/19 04:00 86 03/20/19 04:00 88 03/20/19 04:00 97.8 89 23 158/80 (106) 100 03/20/19 04:00 6.0 28 03/20/19 03:00 89 23 152/78 (102) 100 03/20/19 02:00 75 21 138/71 (93) 100 03/20/19 01:16 100 T-Piece 5.0 28 03/20/19 01:00 85 22 130/62 (84) 100 03/20/19 00:00 T-piece 6.0 T-piece 6.0 03/20/19 00:00 98.4 85 22 130/62 (84) 100 03/19/19 23:00 85 23 135/62 (86) 100 03/19/19 22:30 94 20 100 T-Piece 5.0 28 81 20 100 03/19/19 22:00 88 21 134/55 (81) 100 03/19/19 21:00 88 22 146/65 (92) 100 03/19/19 20:00 T-piece 6.0 T-piece 6.0 03/19/19 20:00 98.2 88 22 114/49 (70) 100 03/19/19 20:00 6.0 28 03/19/19 20:00 86 03/19/19 19:27 100 T-Piece 5.0 28 03/19/19 19:24 91 20 100 T-Piece 5.0 28 85 20 100 03/19/19 19:00 94 24 135/54 (81) 100 03/19/19 18:00 100 21 138/37 (70) 100 03/19/19 17:00 94 24 151/31 (71) 100 03/19/19 16:00 T-piece 6.0 T-piece 6.0 03/19/19 16:00 97.1 103 18 165/51 (89) 98 03/19/19 16:00 96 03/19/19 16:00 6.0 28 03/19/19 15:04 89 20 100 T-Piece 6.0 28 94 20 100 03/19/19 15:00 90 25 145/38 (73) 100 03/19/19 14:00 103 22 132/57 (82) 99 103 03/19/19 13:00 97 22 143/84 (103) 99 97 03/19/19 12:39 100 T-Piece 5.0 28 03/19/19 12:00 6.0 28 03/19/19 12:00 98.7 111 25 133/74 (93) 100 111 03/19/19 12:00 T-piece 6.0 T-piece 6.0 03/19/19 12:00 92 03/19/19 11:18 89 22 100 T-Piece 6.0 28 90 22 100 03/19/19 11:00 91 24 123/81 (95) 100 91 03/19/19 10:00 94 24 143/49 (80) 100 94 03/19/19 09:00 94 24 107/41 (63) 98 94 03/19/19 08:00 T-piece 6.0 T-piece 6.0 03/19/19 08:00 6.0 28 03/19/19 08:00 86 03/19/19 08:00 98.2 93 23 134/49 (77) 100 93 03/19/19 07:51 108 22 100 T-Piece 6.0 28 91 22 100 03/19/19 07:17 86 27 144/59 (87) 100 86 Intake and Output 03/19/19 03/20/19 19:00 07:00 Intake Total 600 ml 50 ml Output Total 435 ml 360 ml Balance 165 ml -310 ml IV Total 600 ml 50 ml Output Urine Total 435 ml 360 ml Laboratory Tests 03/20/19 03:00: White Blood Count 9.9, Red Blood Count 3.05L, Hemoglobin 8.2L, Hematocrit 25.9L , Mean Corpuscular Volume 85, Mean Corpuscular Hemoglobin 27.0, Mean Corpuscular Hemoglobin Concent 31.8L, Red Cell Distribution Width 15.8H, Platelet Count 193, Mean Platelet Volume 5.4L, Neutrophils (%) (Auto) 58.2, Lymphocytes (%) (Auto) 30.3, Monocytes (%) (Auto) 5.3, Eosinophils (%) (Auto) 5.4H, Basophils (%) (Auto) 0.9, Sodium Level 140, Potassium Level 4.3, Chloride Level 106, Carbon Dioxide Level 29, Anion Gap 5, Blood Urea Nitrogen 11, Creatinine 1.1, Estimat Glomerular Filtration Rate , Glucose Level 74, Calcium Level 9.0, Magnesium Level 1.5L, Total Bilirubin 0.2, Aspartate Amino Transf ( AST/SGOT) 25, Alanine Aminotransferase (ALT/SGPT) 29, Alkaline Phosphatase 127H , Total Protein 7.6, Albumin 2.5L, Globulin 5.1, Albumin/Globulin Ratio 0.5L Height (Feet): 5 Height (Inches): 4.00 Weight (Pounds): 134 Objective Debilitated AA woman non-verbal NCAT (+) trach coarse ronchi RR obese abd, (+) GT no edema (+) contractured extremities Celio Vaughan MD Mar 20, 2019 07:08
--- NOTE | 2019-03-20 07:09 | Pre-Procedure Note/Attestation ---
Pre-Procedure Note/Attestation Complete Prior to Procedure Planned Procedure: not applicable Procedure Narrative: EGD with G to J conversion Indications for Procedure Pre-Operative Diagnosis: vomiting, tube feeding intolerance Attestation I attest that I discussed the nature of the procedure; its benefits; risks and complications; and alternatives (and the risks and benefits of such alternatives ), prior to the procedure, with the patient's daughter. I attest that, if there was a reasonable possibility of needing a blood transfusion, the patient (or the patient's legal in store marketing representative) was given the [facility] standardized written summary, pursuant to the [place] Blood Safety Act ([place] Health and Safety Code # 1645, as amended). I attest that I re-evaluated the patient just prior to the surgery and that there has been no change in the patient's H&P, except as documented below: Celio Vaughan MD Mar 20, 2019 07:09
--- NOTE | 2019-03-20 07:10 | NUR ---
NURSE NOTES: Received report from JEANNINE Howard. Patient went down to GI Lab for EGD and Jtube conversion. Will continue plan of care.
--- NOTE | 2019-03-20 07:10 | NUR ---
HAND-OFF: Report given to Joseph PAEZ.
--- NOTE | 2019-03-20 07:31 | Immediate Post-Op Evaluation ---
Immediate Post-Op Evalulation Immediate Post-Op Evalulation Procedure: EGD diagnostic, G-tube to J-tube Date of Evaluation: Mar 20, 2019 Time of Evaluation: 07:45 IV Fluids: 0.9 NS 100 ml Blood Pressure Systolic: 160 Blood Pressure Diastolic: 63 Pulse Rate: 101 Respiratory Rate: 25 O2 Sat by Pulse Oximetry: 95 Temperature (Fahrenheit): 98.5 Pain Score (1-10): 0 Nausea: No Vomiting: No Patient Status: reacts, patent, none - trach Hydration Status: adequate Given Within 1 Hr of Incision: Juliana Samaniego CRNA Mar 20, 2019 07:30
[2019-03-20] MEDS ORDERED: NS 275ml ONE (07:38)
[2019-03-20] MEDS ORDERED: D5 1/2NS 1000ml IV ONE (07:38)
--- NOTE | 2019-03-20 07:50 | NUR ---
NURSE NOTES: Patient came back from GI lab and received report from JEANNINE Garcia. Patient is obtunded and new G-J tubes noted. Anita 6, XLT with Tpiece with FiO2 28%. Vital signs stable. Afebrile. Right upper arm PICC line intact and clean. Restarted D51/2NS @50ml/hr. Kept dry, clean, comfortable and HOB>30. Will continue to monitor.
--- NOTE | 2019-03-20 08:10 | NUR ---
NURSE NOTES: Talked with Dr. Vaughan and new orders read back and confirmed by Dr. Vaughan. Will continue plan of care.
[2019-03-20] MEDS: levETIRAcetam 500mg/5ml Liquid GT SCH ×2 (08:30→20:40)
[2019-03-20] MEDS: Heparin 5000 units/ml inj SUBQ SCH ×2 (08:32→20:44)
[2019-03-20] MEDS: Bacitracin Oint 15gm Tube TOPIC SCH ×3 (08:33→17:38)
[2019-03-20] MEDS ORDERED: Pantoprazole Inj IVP SCH (09:00)
--- NOTE | 2019-03-20 09:00 | NUR ---
NURSE NOTES: All medications given as ordered and started tube feeding Glucerna 1.5 @50ml/hr to [facility] [employer]. Will continue plan of care.
--- NOTE | 2019-03-20 09:10 | NUR ---
NURSE NOTES: Seen by Dr. Cortez and informed Mg level today.
--- NOTE | 2019-03-20 10:10 | NUR ---
NURSE NOTES: Repositioned patient. Glucerna 1.5 running @50ml/hr. Daughter is at the bedside.
[2019-03-20] MEDS ORDERED: D5 1/2NS 1,000 ML IV SCH (10:41)
--- NOTE | 2019-03-20 10:45 | Nephrology Progress Note ---
Assessment/Plan Problem List: (1) Acute renal failure (ARF) Assessment: Cr stable (2) Chronic respiratory failure (3) Anemia (4) Sepsis Assessment Acute renal failure Respiratory failure - Trach Low Mag- Low k , Low Na Anemia UTI / Sepsis Proteinuria / HypoAlbuminemia high Trigs Sz decubs bed bound DNR Plan lab reviewed now has JT bolus Albumin as needed K and Mag and Phos supplement as needed Hydrate as needed Urine studies avoid Nephrotoxics mag K Phos supplements as needed monitor renal parameters Subjective ROS Limited/Unobtainable: Yes Objective Objective Last 24 Hour Vital Signs Date Time Temp Pulse Resp B/P (MAP) Pulse Ox O2 Delivery O2 Flow Rate FiO2 03/20/19 09:00 92 23 160/67 (98) 100 03/20/19 08:35 91 22 98 T-Piece 6.0 28 03/20/19 08:00 98.2 97 25 159/69 (99) 100 03/20/19 08:00 6.0 28 03/20/19 08:00 T-piece 6.0 T-piece 6.0 03/20/19 07:50 101 25 95 03/20/19 07:44 98 23 160/63 (95) 99 03/20/19 07:07 100 T-Piece 5.0 28 03/20/19 06:00 101 22 158/82 (107) 99 03/20/19 05:00 80 23 152/80 (104) 100 03/20/19 04:00 T-piece 6.0 T-piece 6.0 03/20/19 04:00 86 03/20/19 04:00 88 03/20/19 04:00 97.8 89 23 158/80 (106) 100 03/20/19 04:00 6.0 28 03/20/19 03:00 89 23 152/78 (102) 100 03/20/19 02:00 75 21 138/71 (93) 100 03/20/19 01:16 100 T-Piece 5.0 28 03/20/19 01:00 85 22 130/62 (84) 100 03/20/19 00:00 T-piece 6.0 T-piece 6.0 03/20/19 00:00 98.4 85 22 130/62 (84) 100 03/19/19 23:00 85 23 135/62 (86) 100 03/19/19 22:30 94 20 100 T-Piece 5.0 28 81 20 100 03/19/19 22:00 88 21 134/55 (81) 100 03/19/19 21:00 88 22 146/65 (92) 100 03/19/19 20:00 T-piece 6.0 T-piece 6.0 03/19/19 20:00 98.2 88 22 114/49 (70) 100 03/19/19 20:00 6.0 28 03/19/19 20:00 86 03/19/19 19:27 100 T-Piece 5.0 28 03/19/19 19:24 91 20 100 T-Piece 5.0 28 85 20 100 03/19/19 19:00 94 24 135/54 (81) 100 03/19/19 18:00 100 21 138/37 (70) 100 03/19/19 17:00 94 24 151/31 (71) 100 03/19/19 16:00 T-piece 6.0 T-piece 6.0 03/19/19 16:00 97.1 103 18 165/51 (89) 98 03/19/19 16:00 96 03/19/19 16:00 6.0 28 03/19/19 15:04 89 20 100 T-Piece 6.0 28 94 20 100 03/19/19 15:00 90 25 145/38 (73) 100 03/19/19 14:00 103 22 132/57 (82) 99 103 03/19/19 13:00 97 22 143/84 (103) 99 97 03/19/19 12:39 100 T-Piece 5.0 28 03/19/19 12:00 6.0 28 03/19/19 12:00 98.7 111 25 133/74 (93) 100 111 03/19/19 12:00 T-piece 6.0 T-piece 6.0 03/19/19 12:00 92 03/19/19 11:18 89 22 100 T-Piece 6.0 28 90 22 100 03/19/19 11:00 91 24 123/81 (95) 100 91 Intake and Output 03/19/19 03/20/19 19:00 07:00 Intake Total 600 ml 50 ml Output Total 435 ml 390 ml Balance 165 ml -340 ml IV Total 600 ml 50 ml Output Urine Total 435 ml 390 ml Laboratory Tests 03/20/19 03:00: White Blood Count 9.9, Red Blood Count 3.05L, Hemoglobin 8.2L, Hematocrit 25.9L , Mean Corpuscular Volume 85, Mean Corpuscular Hemoglobin 27.0, Mean Corpuscular Hemoglobin Concent 31.8L, Red Cell Distribution Width 15.8H, Platelet Count 193, Mean Platelet Volume 5.4L, Neutrophils (%) (Auto) 58.2, Lymphocytes (%) (Auto) 30.3, Monocytes (%) (Auto) 5.3, Eosinophils (%) (Auto) 5.4H, Basophils (%) (Auto) 0.9, Sodium Level 140, Potassium Level 4.3, Chloride Level 106, Carbon Dioxide Level 29, Anion Gap 5, Blood Urea Nitrogen 11, Creatinine 1.1, Estimat Glomerular Filtration Rate , Glucose Level 74, Calcium Level 9.0, Magnesium Level 1.5L, Total Bilirubin 0.2, Aspartate Amino Transf ( AST/SGOT) 25, Alanine Aminotransferase (ALT/SGPT) 29, Alkaline Phosphatase 127H , Total Protein 7.6, Albumin 2.5L, Globulin 5.1, Albumin/Globulin Ratio 0.5L Height (Feet): 5 Height (Inches): 4.00 Weight (Pounds): 134 General Appearance: no apparent distress EENT: other - Trach to O2 Cardiovascular: tachycardia Respiratory/Chest: decreased breath sounds Abdomen: distended, other - has J tube now Objective no change Eric Cortez MD Mar 20, 2019 10:45
--- NOTE | 2019-03-20 10:47 | Infectious Diseases Prog Note ---
"Assessment/Plan Assessment/Plan antibiotics : none A 1. klebsiella | providencia pneumonia s/p rx 2. respiratory failure 3. hypertension 4. CVA 5. dementia 6. sacral decubitus ulcer 7. rectal VRE colonization P 1. observe off antibiotics 2. dc planned Subjective ROS Limited/Unobtainable: Yes Allergies: Coded Allergies: CODEINE (Verified Allergy, Unknown, HIVES, 09/15/09) Objective Vital Signs Last 24 Hour Vital Signs Date Time Temp Pulse Resp B/P (MAP) Pulse Ox O2 Delivery O2 Flow Rate FiO2 03/20/19 09:00 92 23 160/67 (98) 100 03/20/19 08:35 91 22 98 T-Piece 6.0 28 03/20/19 08:00 98.2 97 25 159/69 (99) 100 03/20/19 08:00 6.0 28 03/20/19 08:00 T-piece 6.0 T-piece 6.0 03/20/19 07:50 101 25 95 03/20/19 07:44 98 23 160/63 (95) 99 03/20/19 07:07 100 T-Piece 5.0 28 03/20/19 06:00 101 22 158/82 (107) 99 03/20/19 05:00 80 23 152/80 (104) 100 03/20/19 04:00 T-piece 6.0 T-piece 6.0 03/20/19 04:00 86 03/20/19 04:00 88 03/20/19 04:00 97.8 89 23 158/80 (106) 100 03/20/19 04:00 6.0 28 03/20/19 03:00 89 23 152/78 (102) 100 03/20/19 02:00 75 21 138/71 (93) 100 03/20/19 01:16 100 T-Piece 5.0 28 03/20/19 01:00 85 22 130/62 (84) 100 03/20/19 00:00 T-piece 6.0 T-piece 6.0 03/20/19 00:00 98.4 85 22 130/62 (84) 100 03/19/19 23:00 85 23 135/62 (86) 100 03/19/19 22:30 94 20 100 T-Piece 5.0 28 81 20 100 03/19/19 22:00 88 21 134/55 (81) 100 03/19/19 21:00 88 22 146/65 (92) 100 03/19/19 20:00 T-piece 6.0 T-piece 6.0 03/19/19 20:00 98.2 88 22 114/49 (70) 100 03/19/19 20:00 6.0 28 03/19/19 20:00 86 03/19/19 19:27 100 T-Piece 5.0 28 03/19/19 19:24 91 20 100 T-Piece 5.0 28 85 20 100 03/19/19 19:00 94 24 135/54 (81) 100 03/19/19 18:00 100 21 138/37 (70) 100 03/19/19 17:00 94 24 151/31 (71) 100 03/19/19 16:00 T-piece 6.0 T-piece 6.0 03/19/19 16:00 97.1 103 18 165/51 (89) 98 03/19/19 16:00 96 03/19/19 16:00 6.0 28 03/19/19 15:04 89 20 100 T-Piece 6.0 28 94 20 100 03/19/19 15:00 90 25 145/38 (73) 100 03/19/19 14:00 103 22 132/57 (82) 99 103 03/19/19 13:00 97 22 143/84 (103) 99 97 03/19/19 12:39 100 T-Piece 5.0 28 03/19/19 12:00 6.0 28 03/19/19 12:00 98.7 111 25 133/74 (93) 100 111 03/19/19 12:00 T-piece 6.0 T-piece 6.0 03/19/19 12:00 92 03/19/19 11:18 89 22 100 T-Piece 6.0 28 90 22 100 03/19/19 11:00 91 24 123/81 (95) 100 91 Height (Feet): 5 Height (Inches): 4.00 Weight (Pounds): 134 HEENT: status post trach Respiratory/Chest: lungs clear Cardiovascular: normal rate, regular rhythm, no gallop/murmur Abdomen: soft, non tender, other - GT Extremities: no edema, other - right arm PICC Laboratory Tests Test 03/20/19 03:00 White Blood Count 9.9 K/UL (4.8-10.8) Red Blood Count 3.05 M/UL (4.20-5.40) L Hemoglobin 8.2 G/DL (12.0-16.0) L Hematocrit 25.9 % (37.0-47.0) L Mean Corpuscular Volume 85 FL (80-99) Mean Corpuscular Hemoglobin 27.0 PG (27.0-31.0) Mean Corpuscular Hemoglobin Concent 31.8 G/DL (32.0-36.0) L Red Cell Distribution Width 15.8 % (11.6-14.8) H Platelet Count 193 K/UL (150-450) Mean Platelet Volume 5.4 FL (6.5-10.1) L Neutrophils (%) (Auto) 58.2 % (45.0-75.0) Lymphocytes (%) (Auto) 30.3 % (20.0-45.0) Monocytes (%) (Auto) 5.3 % (1.0-10.0) Eosinophils (%) (Auto) 5.4 % (0.0-3.0) H Basophils (%) (Auto) 0.9 % (0.0-2.0) Sodium Level 140 MMOL/L (136-145) Potassium Level 4.3 MMOL/L (3.5-5.1) Chloride Level 106 MMOL/L (98-107) Carbon Dioxide Level 29 MMOL/L (21-32) Anion Gap 5 mmol/L (5-15) Blood Urea Nitrogen 11 mg/dL (7-18) Creatinine 1.1 MG/DL (0.55-1.30) Estimat Glomerular Filtration Rate mL/min (>60) Glucose Level 74 MG/DL (74-106) Calcium Level 9.0 MG/DL (8.5-10.1) Magnesium Level 1.5 MG/DL (1.8-2.4) L Total Bilirubin 0.2 MG/DL (0.2-1.0) Aspartate Amino Transf (AST/SGOT) 25 U/L (15-37) Alanine Aminotransferase (ALT/SGPT) 29 U/L (12-78) Alkaline Phosphatase 127 U/L (46-116) H Total Protein 7.6 G/DL (6.4-8.2) Albumin 2.5 G/DL (3.4-5.0) L Globulin 5.1 g/dL Albumin/Globulin Ratio 0.5 (1.0-2.7) L Current Medications Medications (Trade) Dose Ordered Sig/Maicol Route PRN Reason Start Time Stop Time Status Last Admin Dose Admin Acetylcysteine (Mucomyst) 200 mg Q4HRT N 03/18/19 19:00 04/17/19 18:59 03/19/19 22:29 Albuterol/ Ipratropium (Albuterol/ Ipratropium) 3 ml Q4HRT N 03/20/19 11:00 03/25/19 10:59 Atropine Sulfate (Atropine Opth Adriana) 2 drop TID SL 03/07/19 09:00 04/06/19 08:59 03/20/19 08:33 Bacitracin (Bacitracin 15gm tube) 1 applic THREE TIMES A DAY TOPIC 02/28/19 18:30 03/30/19 18:29 03/20/19 08:33 Chlorhexidine Gluconate (Cesilia-Hex 2%) 1 applic DAILY@2000 TOPIC 03/12/19 20:00 04/11/19 19:59 03/19/19 19:43 Dextrose/Sodium Chloride 1,000 ml @ 50 mls/hr Q20H IV 03/20/19 10:41 04/19/19 10:40 Heparin Sodium (Porcine) (Heparin 5000 units/ml) 5,000 units EVERY 12 HOURS SUBQ 03/15/19 21:00 03/23/19 23:14 03/20/19 08:32 Hydralazine HCl (Apresoline) 10 mg Q4H PRN IV For High Blood Pressure 03/12/19 09:00 04/11/19 08:59 03/18/19 18:17 Lansoprazole (Prevacid) 30 mg BID GT 03/20/19 18:00 04/19/19 17:59 Levetiracetam (Keppra) 750 mg Q12HR GT 03/15/19 21:00 03/23/19 23:29 03/20/19 08:30 Magnesium Sulfate 100 ml @ 100 mls/hr Q1H IVPB 03/20/19 10:45 03/20/19 14:44 Metoclopramide HCl (Reglan) 5 mg Q6H IVP 03/10/19 02:00 03/24/19 01:59 03/20/19 08:31 Ondansetron HCl (Zofran) 4 mg Q4H PRN IVP Nausea & Vomiting 03/18/19 18:15 04/17/19 18:14 03/20/19 05:26 Potassium Chloride (K-Dur) 20 meq DAILY GT 03/21/19 09:00 04/11/19 08:59 Geovany Yang MD Mar 20, 2019 10:47"
[2019-03-20] MEDS: Albuterol/Ipratropium 3ml neb HHN SCH ×4 (10:51→23:22)
--- NOTE | 2019-03-20 11:10 | 48 Hour Post Anesthesia Eval ---
Post Anesthesia Evaluation Procedure: EGD diagnostic, G-tube to J-tube Date of Evaluation: Mar 20, 2019 Time of Evaluation: 11:09 Blood Pressure Systolic: 160 0: 67 Pulse Rate: 92 Respiratory Rate: 23 Temperature (Fahrenheit): 98.2 O2 Sat by Pulse Oximetry: 100 Airway: patent Nausea: No Vomiting: No Pain Intensity: 0 Hydration Status: adequate Cardiopulmonary Status: stable Mental Status/LOC: patient returned to baseline Follow-up Care/Observations: per holistic nutritionist Post-Anesthesia Complications: none Follow-up care needed: N/A Juliana Flannery CRNA Mar 20, 2019 11:10
--- NOTE | 2019-03-20 11:59 | NUR ---
NURSE NOTES: Patient is tolerating well with tube feeding. No residual noted. Kept dry, clean, comfortable and HOB>30. Will continue plan of care.
--- NOTE | 2019-03-20 14:02 | NUR ---
NURSE NOTES: Repositioned patient. Provided suction. Patient is tolerating well with J tube feeding.
--- NOTE | 2019-03-20 16:02 | NUR ---
NURSE NOTES: Bed bath given and repositioned patient.
--- NOTE | 2019-03-20 18:10 | NUR ---
NURSE NOTES: Informed Dr. Vaughan that small yellow color mucus like contents came out from trach. Clarified previous orders. Will continue plan of care.
--- NOTE | 2019-03-20 19:25 | NUR ---
HAND-OFF: Report given to JEANNINE Armstrong. Endorsed plan of care.
--- NOTE | 2019-03-20 19:53 | NUR ---
NURSE NOTES: received pt open eyes to touch but does not does not follows command o2 sat 99 o/o tolerating tube feeding no residual reposition and suction
[2019-03-20] MEDS: Dyna-Hex 2% Top Sol 2oz TOPIC SCH (20:40)
[2019-03-20] MEDS: Pantoprazole Inj IVP SCH (20:41)
--- NOTE | 2019-03-20 21:00 | NUR ---
NURSE NOTES: dr garcia and seen pt reposition and suction
--- NOTE | 2019-03-20 21:13 | Pulmonolgy Critical Care Note ---
Critical Care - Asmt/Plan Assessment/Plan: Pulmonary CCM Progress Note Assessment/Plan Impression: Sepsis syndrome Pneumonia, KPC VDRF, Trach, G tube, Hypertension, Cardiac disease, Dementia, Previous CVA, Seizure disorder, Respiratory failure with hypoxia, on TC Anemia Sacral ulcer renal cyst pulmonary congestion Plan respiratory care to continue as is, TC as tolerated atropine neb therapy SN[facility] meds as is off vent as able and has been off for several day Oxygen as needed Monitor labs daily changes noted and reviewed feeds as tolerated monitor albumin levels and provide protein and nutrition elevate head aspiration precautions Patient is a DNR. No CPR. ICU care reviewed medications/laboratory data/nursing notes/ICU care reviewed in detail note reviewed and edited care discussed with RN and RT ICU time spent 45 minutes Subjective Allergies: Coded Allergies: CODEINE (Verified Allergy, Unknown, HIVES, 09/15/09) Subjective respiratory care noted congestion- improved with atropine ICU care reviewed supportive care noted and reviewed RT care reviewed overnight care noted findings reviewed and discussed in detail with nursing and RT seen earlier this am Objective Vital Signs Noted Objective WDWN NAD contracted off vent reduced breath sounds bilaterally with some rhonchi; no wheeze [id number] without MRG NABS nontender no HSM no CC minimal nonfocal nonverbal trach and gt reviewed and edited Laboratory Tests Noted Critical Care - Objective Last 24 Hour Vital Signs Date Time Temp Pulse Resp B/P (MAP) Pulse Ox O2 Delivery O2 Flow Rate FiO2 03/20/19 19:26 100 T-Piece 5.0 28 03/20/19 19:20 93 21 100 T-Piece 5.0 28 95 25 100 03/20/19 19:00 95 23 148/71 (96) 100 03/20/19 18:00 88 25 159/67 (97) 100 03/20/19 17:00 94 26 141/65 (90) 97 03/20/19 16:00 91 03/20/19 16:00 98.2 89 23 124/47 (72) 93 03/20/19 16:00 6.0 28 03/20/19 16:00 T-piece 6.0 T-piece 6.0 03/20/19 15:17 89 23 100 T-Piece 5.0 28 81 25 100 03/20/19 15:00 103 20 152/60 (90) 99 03/20/19 14:00 84 26 140/79 (99) 96 03/20/19 13:00 78 20 129/50 (76) 100 03/20/19 12:39 100 T-Piece 5.0 28 03/20/19 12:00 101 03/20/19 12:00 6.0 28 03/20/19 12:00 98.1 84 21 135/55 (81) 99 03/20/19 12:00 T-piece 6.0 T-piece 6.0 03/20/19 11:10 92 23 100 03/20/19 11:01 106 22 100 T-Piece 5.0 28 91 20 100 03/20/19 11:00 93 24 154/55 (88) 100 03/20/19 10:00 96 23 142/58 (86) 100 03/20/19 09:00 92 23 160/67 (98) 100 03/20/19 08:35 91 22 98 T-Piece 6.0 28 03/20/19 08:00 98.2 97 25 159/69 (99) 100 03/20/19 08:00 6.0 28 03/20/19 08:00 T-piece 6.0 T-piece 6.0 03/20/19 07:50 101 25 95 03/20/19 07:44 98 23 160/63 (95) 99 03/20/19 07:07 100 T-Piece 5.0 28 03/20/19 06:00 101 22 158/82 (107) 99 03/20/19 05:00 80 23 152/80 (104) 100 03/20/19 04:00 T-piece 6.0 T-piece 6.0 03/20/19 04:00 86 03/20/19 04:00 88 03/20/19 04:00 97.8 89 23 158/80 (106) 100 03/20/19 04:00 6.0 28 03/20/19 03:00 89 23 152/78 (102) 100 03/20/19 02:00 75 21 138/71 (93) 100 03/20/19 01:16 100 T-Piece 5.0 28 03/20/19 01:00 85 22 130/62 (84) 100 03/20/19 00:00 T-piece 6.0 T-piece 6.0 03/20/19 00:00 98.4 85 22 130/62 (84) 100 03/19/19 23:00 85 23 135/62 (86) 100 03/19/19 22:30 94 20 100 T-Piece 5.0 28 81 20 100 03/19/19 22:00 88 21 134/55 (81) 100 Critical Care - Subjective ROS Limited/Unobtainable: No FI02: 28 Vent Support Mode: CPAP Vent Tidal Volume: 450 Sputum Amount: Small PEEP: 5.0 PIP: 19 Tube Feeding Amount: 50 I&O: Intake and Output 03/19/19 03/20/19 19:00 07:00 Intake Total 600 ml 50 ml Output Total 435 ml 390 ml Balance 165 ml -340 ml IV Total 600 ml 50 ml Output Urine Total 435 ml 390 ml ET-Tube: 6.0 Bg Moffett MD Mar 20, 2019 21:12
--- NOTE | 2019-03-20 21:55 | Surgery Progress Note ---
Surgery Progress Note Subjective Additional Comments Patient seen and examined bedside with daughter present. No acute events. Had GJ EGD conversion this morning by GI successful tolerating tube feeds at 50 cc an hour. I had a long discussion with patient daughter at bedside and we reviewed her wounds as dressings were taken down wounds were evaluated and care plan and discussion were had. I explained to daughter her nutrition status current care plan and what we have been doing to help improve as much as possible. I explained to her that her mother is very ill and with chronic comorbidities and we can do our best to try to improve as much possible soft area of eschar falling off and excised with patient's daughter's permission. Wounds were redressed. Patient's daughter requested pictures and films during dressing change which I was happy to comply with. Objective Last 24 Hour Vital Signs Date Time Temp Pulse Resp B/P (MAP) Pulse Ox O2 Delivery O2 Flow Rate FiO2 03/20/19 19:26 100 T-Piece 5.0 28 03/20/19 19:20 93 21 100 T-Piece 5.0 28 95 25 100 03/20/19 19:00 95 23 148/71 (96) 100 03/20/19 18:00 88 25 159/67 (97) 100 03/20/19 17:00 94 26 141/65 (90) 97 03/20/19 16:00 91 03/20/19 16:00 98.2 89 23 124/47 (72) 93 03/20/19 16:00 6.0 28 03/20/19 16:00 T-piece 6.0 T-piece 6.0 03/20/19 15:17 89 23 100 T-Piece 5.0 28 81 25 100 03/20/19 15:00 103 20 152/60 (90) 99 03/20/19 14:00 84 26 140/79 (99) 96 03/20/19 13:00 78 20 129/50 (76) 100 03/20/19 12:39 100 T-Piece 5.0 28 03/20/19 12:00 101 03/20/19 12:00 6.0 28 03/20/19 12:00 98.1 84 21 135/55 (81) 99 03/20/19 12:00 T-piece 6.0 T-piece 6.0 03/20/19 11:10 92 23 100 03/20/19 11:01 106 22 100 T-Piece 5.0 28 91 20 100 03/20/19 11:00 93 24 154/55 (88) 100 03/20/19 10:00 96 23 142/58 (86) 100 03/20/19 09:00 92 23 160/67 (98) 100 03/20/19 08:35 91 22 98 T-Piece 6.0 28 03/20/19 08:00 98.2 97 25 159/69 (99) 100 03/20/19 08:00 6.0 28 03/20/19 08:00 T-piece 6.0 T-piece 6.0 03/20/19 07:50 101 25 95 03/20/19 07:44 98 23 160/63 (95) 99 03/20/19 07:07 100 T-Piece 5.0 28 03/20/19 06:00 101 22 158/82 (107) 99 03/20/19 05:00 80 23 152/80 (104) 100 03/20/19 04:00 T-piece 6.0 T-piece 6.0 03/20/19 04:00 86 03/20/19 04:00 88 03/20/19 04:00 97.8 89 23 158/80 (106) 100 03/20/19 04:00 6.0 28 03/20/19 03:00 89 23 152/78 (102) 100 03/20/19 02:00 75 21 138/71 (93) 100 03/20/19 01:16 100 T-Piece 5.0 28 03/20/19 01:00 85 22 130/62 (84) 100 03/20/19 00:00 T-piece 6.0 T-piece 6.0 03/20/19 00:00 98.4 85 22 130/62 (84) 100 03/19/19 23:00 85 23 135/62 (86) 100 03/19/19 22:30 94 20 100 T-Piece 5.0 28 81 20 100 03/19/19 22:00 88 21 134/55 (81) 100 I&O Intake and Output 03/19/19 03/20/19 19:00 07:00 Intake Total 600 ml 50 ml Output Total 435 ml 390 ml Balance 165 ml -340 ml IV Total 600 ml 50 ml Output Urine Total 435 ml 390 ml Dressing: dry Wound: clean Cardiovascular: RSR Respiratory: clear Abdomen: soft, non-distended Extremities: no edema, no tenderness, other Laboratory Tests Test 03/20/19 03:00 White Blood Count 9.9 K/UL (4.8-10.8) Red Blood Count 3.05 M/UL (4.20-5.40) L Hemoglobin 8.2 G/DL (12.0-16.0) L Hematocrit 25.9 % (37.0-47.0) L Mean Corpuscular Volume 85 FL (80-99) Mean Corpuscular Hemoglobin 27.0 PG (27.0-31.0) Mean Corpuscular Hemoglobin Concent 31.8 G/DL (32.0-36.0) L Red Cell Distribution Width 15.8 % (11.6-14.8) H Platelet Count 193 K/UL (150-450) Mean Platelet Volume 5.4 FL (6.5-10.1) L Neutrophils (%) (Auto) 58.2 % (45.0-75.0) Lymphocytes (%) (Auto) 30.3 % (20.0-45.0) Monocytes (%) (Auto) 5.3 % (1.0-10.0) Eosinophils (%) (Auto) 5.4 % (0.0-3.0) H Basophils (%) (Auto) 0.9 % (0.0-2.0) Sodium Level 140 MMOL/L (136-145) Potassium Level 4.3 MMOL/L (3.5-5.1) Chloride Level 106 MMOL/L (98-107) Carbon Dioxide Level 29 MMOL/L (21-32) Anion Gap 5 mmol/L (5-15) Blood Urea Nitrogen 11 mg/dL (7-18) Creatinine 1.1 MG/DL (0.55-1.30) Estimat Glomerular Filtration Rate mL/min (>60) Glucose Level 74 MG/DL (74-106) Calcium Level 9.0 MG/DL (8.5-10.1) Magnesium Level 1.5 MG/DL (1.8-2.4) L Total Bilirubin 0.2 MG/DL (0.2-1.0) Aspartate Amino Transf (AST/SGOT) 25 U/L (15-37) Alanine Aminotransferase (ALT/SGPT) 29 U/L (12-78) Alkaline Phosphatase 127 U/L (46-116) H Total Protein 7.6 G/DL (6.4-8.2) Albumin 2.5 G/DL (3.4-5.0) L Globulin 5.1 g/dL Albumin/Globulin Ratio 0.5 (1.0-2.7) L Plan Problems: (1) Sacral decubitus ulcer Assessment & Plan: This is a 83-year-old female with multiple medical committees that is currently admitted for medical care and management and identified to have multiple wounds requiring care. On admission patient noted to have a resolved sacral decubitus ulcer. Has had prior care and is well-healed at this time. Will ensure it does not open up again. Patient has a right ischial decubitus ulcer that is resolved. Scar intact and well formed. Will monitor to ensure it does not open up again. Patient has a left ischial decubitus ulcer that can be identified to be stage IV with palpable bone that has been resolving as noted by the periwound tissue and scar but open area approximately 1 cm x 1.5 cm few millimeters deep to bone identified. Unsure if this is been to be completely healed prior and has since opened or if has been healing at this level. No foul odor no drainage was unsure local wound care until healed Bilateral heels soft without signs of injury Resolving pressure injury L ischium(L)1.8cm x (W)1cm.Scattered biofilm at base of wound. Edges flat and adherent with surrounding hyperpigmentation. No odor or exudate noted. Sacrum is pale pink with surrounding hyperpigmentation. Hyperpigmentation R ischium with small sheared area centrally.No areas of erythema or exudate noted. Both heels are soft but blanchable. Skin Assessed under collar of trach and no evidence of skin breakdown noted. All wound Tx. are effective and continued as ordered. Pt ahs an APM/Belén mattress overlay and is being repositioned per protocols and per tolerance.No new skin concerns noted. Full thickness pressure injury L Ischium with small amt biofilm (L)1.8cm x (W) 1cm. Surrounding pink hyperpigmentation. No odor or exudate noted. Cornlea hyperpigmentation from previous wound noted to sacrum. Pt also noted to have Cat 2 Skin Tear dorsal L hand, L 5th metatarsal extending into palm of hand. 80% skin flap in situ.Both heels are dry firm and blanchable. No other skin concerns noted. R ischial wound has resolved. Cornlea epithelial with surrounding hyperpigmentation. from historical wound. Full thickness pressure injury L ischium. Cornlea granulation at base of wound. Borders are macerated with Surrounding hyperpigmentation.Small amt non-odorous serous exudate noted.(L)0.7cm x (W)0.8cm. Skin hyperpigmentation from historical wound noted to Sacrum. Small sheared area noted to sacrococcygeal area.(L)0.4cm x (W)0.3cm.Small amt sanguineous exudate noted. Reabsorbed blister with semi-detached dry necrotic cap noted to web space of L thumb and L index fingers extending into palm of L hand. No odor or exudate noted. Skin assessed under tracheal collar and no erythema or evidence of Skin Breakdown noted. NO new skin concerns noted . Good hand hygiene provided to both hands. R hand contracted and fisted. Fingernails trimmed. Wound care provided along with Primary nurse. Wound Tx continued as ordered. New order obtained from to apply Betadine to wound L hand Daily. Tx done as ordered. L hand wrapped with kerlix weaving kerlix between fingers to separate fingers. Moisture Barrier applied to sacrum ,R ischium. Each site covered with Optifoam drsg. Both lower ext washed and moisturized. Cavilon Skin Barrier applied to both heels.Each heel covered with Optifoam drsgs. Pt positioned with pillows and both heels off-loaded with pillow. Tx.Plan: Apply Betadine to wound L hand. Cover with Gauze and wrap with Kerlix Daily and prn. Cleanse L ischial wound with Saline. Apply Therahoney. Apply Moisture Barrier periwound. Cover with Optifoam drsgevery 3 days and prn. Apply Moisture Barrier Paste to R ischium and Sacrum. Cover each area with Optifoam drsg. Change every 3 days and prn. Apply Cavilon Skin Barrier to both heels. Cover each heel with Optifoam drsg. Change every 7 days and prn. APM/BELÉN Mattress overlay. Reposition at least every 2hours or as tolerated. Off-load heels with pillow. Cleanse Blister Dorsal and palm of L hand with saline. Versatel One Silicone Contact Layer(Applied). Apply Silvasorb Gel. Wrap with Kerlix Gauze.Change every 7 days and prn. Apply Moisture Barrier to sacrum. Cover with Optifoam drsg. Change every 3 days and prn. Cleanse L ischial wound with saline. Apply Therahoney. Apply Moisture Barrier Paste periwound. Cover with Optifoam drsg. Change every 3 days and prn. Apply Cavilon Skin Barrier to both heels. Cover each heel with Optifoam drsg. Change every 7 days and prn. APM/BELÉN Mattress overlay. Reposition at least every 2hours or as tolerated. Off-load heels with pillow. Nutritional optimization We will monitor follow with recommendations cont with above upon d/c (2) Sepsis Assessment & Plan: IV abx as per ID trend labs improving wounds unlikely etiology likely respiratory imaging noted and okay abnormal lft's stable PICC on Abx in ICU for desaturation CXR with consolidation cont with frequent suctioning d/c planning possible placement found Evidence of left lower lobe pneumonia, also previously demonstrated Gastrostomy in good position Mild diastasis of the rectus abdominis musculature again demonstrated Retrosacral decubitus changes, better depicted on prior exam which included the pelvis Small hiatal hernia with evidence of trace gastroesophageal reflux Discussed with GI. Recommend GJ family still pending decision (3) Feeding by G-tube Assessment & Plan: DAILY ESTIMATED NEEDS: Needs based on Pulmonary, wounds, bedbound/ 61kg adj 25-30 kcals/kg 8179-9526 total kcals 1.25-2 g protein/kg 76-122 g total protein 25-30 mL/kg 6934-3289 total fluid mLs NUTRITION DIAGNOSIS: * Increased kcal/prot needs R/T wound healing as evidenced by BL buttocks and sacral wound photos, refer to eval. * Swallowing difficulty R/T respiratory status as evidenced by pt on T-collar, now back the vent, PEG dep. CURRENT TF:Glucerna 1.5 @ 25ml/hr x 24 hrs - currently HELD d/t emesis ENTERAL NUTRITION RECOMMENDATIONS: Glucerna 1.5 @ 45ml/hr x 24 hrs to provide 1080ml, 1620kcal, 89g prot, 820ml free water - As medically able, rec to increase goal rate to 45ml/hr x24 hrs to meet 100% est kcal/prot needs - HOB over 30 degrees - Water flush of 170ml q 6 hrs * W/ continued regurgitation/ emesis, rec Osmolite 1.5 for GI tolerance. Rec goal of 45ml/hr to provide: 1080ml, 1620 kcal, 68g pro, 823ml free H20. * Add Prosource 1 pack daily to provide additional 11g pro. ADDITIONAL RECOMMENDATIONS: 1) Weekly weights 2) Wound healing: Add Cristian 1pkt BID w/ good TF tolerance + MVI x1 daily 3) Monitor lytes, replete as needed 4) Monitor BGs closely, need for NISS (wnl) 5) Monitor TF tolerance: rec Tf change as above if not (4) Chronic vegetative state Assessment & Plan: incontinence of urine and stool. can soil dressings. nurses doing great job with monitoring and changing prn (5) Leukocytosis Walter Madera Mar 20, 2019 21:55
--- NOTE | 2019-03-20 22:00 | NUR ---
NURSE NOTES:family at bedside visiting urinary output good
[2019-03-21] VITALS (25 sets, daily range): BP systolic 93–171; BP diastolic 43–108
--- NOTE | 2019-03-21 | NUR ---
NURSE NOTES: :temp 98.4 reposition and suction
[2019-03-21] MEDS: Metoclopramide 10mg/2ml Inj IVP SCH ×4 (02:00→19:44)
--- NOTE | 2019-03-21 02:23 | NUR ---
NURSE NOTES: reposition and suction
--- NOTE | 2019-03-21 02:45 | Progress Note ---
DATE: 03/20/2019 CARDIOLOGY AND INTERNAL MEDICINE PROGRESS NOTE SUBJECTIVE: The patient is status post G to J-tube conversion. No complications noted. Preoperative hemoglobin was 8.2. OBJECTIVE: VITAL SIGNS: Blood pressure 157/70, heart rate 93, respiratory rate 17, and afebrile. Monitor sinus on -tube. LUNGS: Bilateral breath sounds. Few rhonchi. CARDIAC: Regular rhythm and rate. Normal S1 and S2. ABDOMEN: Slightly distended, but soft. Tube site intact. EXTREMITIES: No edema. LABORATORY DATA: Magnesium is 1.5 and potassium 4.3. IMPRESSION: Stable cardiovascular parameters following G to J-tube conversion. PLAN: 1. Replace potassium by -tube. 2. Replace magnesium intravenously. 3. Respiratory hygiene. 4. Antimicrobials. 5. Nutrition by J-tube. 6. Adjust IV fluid accordingly. 7. Discharge planning. gB Hagen M.D. DR: PIYUSH JOB#: [id number] CC:
[2019-03-21] MEDS: Acetylcysteine 20% Soln 4ml HHN SCH ×5 (03:30→22:46)
[2019-03-21] MEDS: Albuterol/Ipratropium 3ml neb HHN SCH ×6 (03:32→22:46)
--- NOTE | 2019-03-21 04:00 | NUR ---
NURSE NOTES: complete bed bath reposition reposition and suction
[2019-03-21 05:54] LABS: BASOPHILS % (AUTO) 0.5 % (0.0-2.0); EOSINOPHILS % (AUTO) 4.4 % (0.0-3.0); HEMATOCRIT 29.5 % (37.0-47.0); HEMOGLOBIN 9.5 G/DL (12.0-16.0); LYMPHOCYTES % (AUTO) 29.9 % (20.0-45.0); MEAN CORPUSCULAR VOLUME 86 FL (80-99); MONOCYTES % (AUTO) 6.2 % (1.0-10.0); NEUTROPHILS % (AUTO) 58.8 % (45.0-75.0); PLATELET COUNT 225 K/UL (150-450); RED BLOOD COUNT 3.45 M/UL (4.20-5.40); RED CELL DISTRIBUTION WIDTH 16.4 % (11.6-14.8); WHITE BLOOD COUNT 9.6 K/UL (4.8-10.8)
--- NOTE | 2019-03-21 06:08 | NUR ---
NURSE NOTES: reposition and suction no acute resp distress noted
[2019-03-21 06:25] LABS: ALANINE AMINOTRANSFERASE 33 U/L (12-78); ALBUMIN 2.7 G/DL (3.4-5.0); ALBUMIN/GLOBULIN RATIO 0.5 (1.0-2.7); ALKALINE PHOSPHATASE 182 U/L (46-116); ANION GAP 4 mmol/L (5-15); ASPARTATE AMINO TRANSFERASE 34 U/L (15-37); BILIRUBIN,TOTAL 0.2 MG/DL (0.2-1.0); BLOOD UREA NITROGEN 14 mg/dL (7-18); CALCIUM 9.1 MG/DL (8.5-10.1); CARBON DIOXIDE 30 MMOL/L (21-32); CHLORIDE 103 MMOL/L (98-107); CREATININE 1.1 MG/DL (0.55-1.30); PHOSPHORUS 3.1 MG/DL (2.5-4.9); POTASSIUM 4.7 MMOL/L (3.5-5.1); SODIUM 137 MMOL/L (136-145)
--- NOTE | 2019-03-21 07:15 | NUR ---
NURSE NOTES: Received pt, responds to touch and voice. Unable to follow commands. Shiley 6.0 XLT, T-piece connected to cool aerosol, Fio2 28%, frothy/thin secretions noted upon tracheal sxn. Spo2 99%, bilateral b/s diminished. NSR on cardiac cath lab manager. Breathing is even and regular. BUE severely contracted. Foot drop noted. Elevated bilateral heels on pillow support. Patient has a G/J-tube; GT draining to gravity and JT is running Glucerna 1.5@50ml/hr. 50ml residual per PM shift at 0600. Abdomen is round, non-tender, hypoactive. Purwick connected to sxn. JOSY PICC connected to TKO. Dressing c/d/i on right hand. Sacral wound is healing. Bed locked, alarmed and in lowest position.
--- NOTE | 2019-03-21 07:36 | NUR ---
HAND-OFF: Report given to .porfirio jiménez rn using sbar
--- NOTE | 2019-03-21 08:25 | Nephrology Progress Note ---
Assessment/Plan Problem List: (1) Acute renal failure (ARF) Assessment: Cr stable (2) Chronic respiratory failure (3) Anemia (4) Sepsis Assessment Acute renal failure Respiratory failure - Trach Low Mag- Low k , Low Na Anemia UTI / Sepsis Proteinuria / HypoAlbuminemia high Trigs Sz decubs bed bound DNR Plan lab reviewed now has JT bolus Albumin as needed K and Mag and Phos supplement as needed Hydrate as needed Urine studies avoid Nephrotoxics mag K Phos supplements as needed monitor renal parameters Subjective ROS Limited/Unobtainable: Yes Objective Objective Last 24 Hour Vital Signs Date Time Temp Pulse Resp B/P (MAP) Pulse Ox O2 Delivery O2 Flow Rate FiO2 03/21/19 07:22 100 T-Piece 5.0 28 03/21/19 07:21 86 20 100 T-Piece 5.0 28 83 24 100 03/21/19 07:00 87 23 155/57 (89) 100 03/21/19 06:00 92 23 157/60 (92) 95 03/21/19 06:00 92 23 157/60 (92) 95 03/21/19 05:00 92 24 140/63 (88) 100 03/21/19 05:00 92 24 140/63 (88) 100 03/21/19 04:00 82 03/21/19 04:00 6.0 28 03/21/19 04:00 88 21 114/84 (94) 100 03/21/19 04:00 88 21 114/84 (94) 100 03/21/19 04:00 T-piece 6.0 T-piece 6.0 03/21/19 03:33 87 20 100 T-Piece 5.0 28 96 22 100 03/21/19 03:00 85 22 144/60 (88) 100 03/21/19 03:00 85 22 144/60 (88) 100 03/21/19 02:00 83 21 142/58 (86) 100 03/21/19 02:00 97.8 83 21 142/58 (86) 100 03/21/19 01:00 97 20 145/61 (89) 98 03/21/19 01:00 89 23 145/61 (89) 100 03/21/19 00:31 100 T-Piece 5.0 28 03/21/19 00:13 91 23 158/67 (97) 100 03/21/19 00:00 T-piece 6.0 T-piece 6.0 03/21/19 00:00 80 03/21/19 00:00 97 20 171/67 (101) 98 03/21/19 00:00 6.0 28 03/21/19 00:00 97 20 158/67 (97) 98 03/20/19 23:24 86 16 100 T-Piece 5.0 28 90 23 100 03/20/19 23:00 93 17 157/70 (99) 100 03/20/19 22:00 90 23 123/97 (106) 100 03/20/19 22:00 90 23 123/97 (106) 100 03/20/19 20:00 T-piece 6.0 T-piece 6.0 03/20/19 20:00 6.0 28 03/20/19 20:00 90 03/20/19 19:26 100 T-Piece 5.0 28 03/20/19 19:20 93 21 100 T-Piece 5.0 28 95 25 100 03/20/19 19:00 95 23 148/71 (96) 100 03/20/19 18:00 88 25 159/67 (97) 100 03/20/19 17:00 94 26 141/65 (90) 97 03/20/19 16:00 91 03/20/19 16:00 98.2 89 23 124/47 (72) 93 03/20/19 16:00 6.0 28 03/20/19 16:00 T-piece 6.0 T-piece 6.0 03/20/19 15:17 89 23 100 T-Piece 5.0 28 81 25 100 03/20/19 15:00 103 20 152/60 (90) 99 03/20/19 14:00 84 26 140/79 (99) 96 03/20/19 13:00 78 20 129/50 (76) 100 03/20/19 12:39 100 T-Piece 5.0 28 03/20/19 12:00 101 03/20/19 12:00 6.0 28 03/20/19 12:00 98.1 84 21 135/55 (81) 99 03/20/19 12:00 T-piece 6.0 T-piece 6.0 03/20/19 11:10 92 23 100 03/20/19 11:01 106 22 100 T-Piece 5.0 28 91 20 100 03/20/19 11:00 93 24 154/55 (88) 100 03/20/19 10:00 96 23 142/58 (86) 100 03/20/19 09:00 92 23 160/67 (98) 100 03/20/19 08:35 91 22 98 T-Piece 6.0 28 Intake and Output 03/20/19 03/21/19 19:00 07:00 Intake Total 1232 ml 830 ml Output Total 600 ml 770 ml Balance 632 ml 60 ml Free Water 240 ml 60 ml IV Total 442 ml Tube Feeding 550 ml 550 ml Other 220 ml Output Urine Total 600 ml 670 ml Other 100 ml Laboratory Tests 03/21/19 05:17: White Blood Count 9.6, Red Blood Count 3.45L, Hemoglobin 9.5L, Hematocrit 29.5L , Mean Corpuscular Volume 86, Mean Corpuscular Hemoglobin 27.4, Mean Corpuscular Hemoglobin Concent 32.1, Red Cell Distribution Width 16.4H, Platelet Count 225, Mean Platelet Volume 5.8L, Neutrophils (%) (Auto) 58.8, Lymphocytes (%) (Auto) 29.9, Monocytes (%) (Auto) 6.2, Eosinophils (%) (Auto) 4.4H, Basophils (%) (Auto) 0.5, Sodium Level 137, Potassium Level 4.7, Chloride Level 103, Carbon Dioxide Level 30, Anion Gap 4L, Blood Urea Nitrogen 14, Creatinine 1.1, Estimat Glomerular Filtration Rate , Glucose Level 103, Calcium Level 9.1, Phosphorus Level 3.1, Magnesium Level 2.7H, Total Bilirubin 0.2, Aspartate Amino Transf (AST/SGOT) 34, Alanine Aminotransferase (ALT/SGPT) 33, Alkaline Phosphatase 182H, C-Reactive Protein, Quantitative 8.5H, Pro-B-Type Natriuretic Peptide 390H, Total Protein 8.0, Albumin 2.7L, Globulin 5.3, Albumin /Globulin Ratio 0.5L Height (Feet): 5 Height (Inches): 4.00 Weight (Pounds): 136 General Appearance: no apparent distress Objective no change Eric Cortez MD Mar 21, 2019 08:25
[2019-03-21] MEDS: levETIRAcetam 500mg/5ml Liquid GT SCH ×2 (08:27→20:47)
[2019-03-21] MEDS: Pantoprazole Inj IVP SCH ×2 (08:27→20:47)
[2019-03-21] MEDS: Heparin 5000 units/ml inj SUBQ SCH ×2 (08:29→20:48)
[2019-03-21] MEDS: Bacitracin Oint 15gm Tube TOPIC SCH ×3 (08:36→17:52)
--- NOTE | 2019-03-21 09:20 | NUR ---
NURSE NOTES: Turned and repositioned. Kept dry and clean. Wound pictures taken, dressings changed. Oral care done.
--- NOTE | 2019-03-21 11:30 | NUR ---
NURSE NOTES: Turned and repositioned. Less drooling noted. Afebrile. Kept dry and clean.
--- NOTE | 2019-03-21 13:31 | NUR ---
NURSE NOTES: GT draining well to gravity. Minimal drainage noted. TF running well via J-tube, patent and asymptomatic. No nausea or vomitting.
[2019-03-21] MEDS ORDERED: NS 275ml ONE (14:23)
[2019-03-21] MEDS ORDERED: Tubing IV Secondary IV ONE (14:23)
--- NOTE | 2019-03-21 15:42 | NUR ---
NURSE NOTES: No acute distress noted. Kept dry and clean.
--- NOTE | 2019-03-21 16:53 | Pulmonolgy Critical Care Note ---
Critical Care - Asmt/Plan Assessment/Plan: Pulmonary CCM Progress Note Assessment/Plan Impression: Sepsis syndrome Pneumonia, KPC VDRF, Trach, G tube, Hypertension, Cardiac disease, Dementia, Previous CVA, Seizure disorder, Respiratory failure with hypoxia, on TC Anemia Sacral ulcer renal cyst pulmonary congestion Plan respiratory care to continue as is, TC as tolerated atropine neb therapy SNF meds as is off vent as able and has been off for several day Oxygen as needed Monitor labs daily changes noted and reviewed feeds as tolerated monitor albumin levels and provide protein and nutrition elevate head aspiration precautions Patient is a DNR. No CPR. ICU care reviewed medications/laboratory data/nursing notes/ICU care reviewed in detail note reviewed and edited care discussed with RN and RT ICU time spent 45 minutes Subjective Allergies: Coded Allergies: CODEINE (Verified Allergy, Unknown, HIVES, 09/15/09) Subjective respiratory care noted congestion- improved with atropine ICU care reviewed supportive care noted and reviewed RT care reviewed overnight care noted findings reviewed and discussed in detail with nursing and RT seen earlier this am Objective Vital Signs Noted Objective WDWN NAD contracted off vent reduced breath sounds bilaterally with some rhonchi; no wheeze [id number] without MRG NABS nontender no HSM no CC minimal nonfocal nonverbal trach and gt reviewed and edited Laboratory Tests Noted Critical Care - Objective Last 24 Hour Vital Signs Date Time Temp Pulse Resp B/P (MAP) Pulse Ox O2 Delivery O2 Flow Rate FiO2 03/21/19 16:00 6.0 28 03/21/19 16:00 74 03/21/19 16:00 T-piece 6.0 T-piece 6.0 03/21/19 16:00 98.1 80 24 163/108 (126) 100 03/21/19 15:00 80 23 139/57 (84) 100 03/21/19 14:38 90 20 100 T-Piece 5.0 28 84 20 99 03/21/19 14:00 81 20 138/54 (82) 98 03/21/19 13:20 100 T-Piece 5.0 28 03/21/19 13:00 98.6 84 24 151/60 (90) 100 03/21/19 12:00 84 23 103/43 (63) 100 03/21/19 12:00 6.0 28 03/21/19 12:00 81 03/21/19 12:00 T-piece 6.0 T-piece 6.0 03/21/19 11:08 101 24 100 T-Piece 5.0 28 104 22 99 03/21/19 11:00 103 21 133/54 (80) 94 03/21/19 10:00 84 19 118/48 (71) 98 03/21/19 09:00 90 24 155/61 (92) 98 03/21/19 08:00 98.8 88 22 151/54 (86) 99 03/21/19 08:00 T-piece 6.0 T-piece 6.0 03/21/19 08:00 6.0 28 03/21/19 08:00 86 03/21/19 07:22 100 T-Piece 5.0 28 03/21/19 07:21 86 20 100 T-Piece 5.0 28 83 24 100 03/21/19 07:00 87 23 155/57 (89) 100 03/21/19 06:00 92 23 157/60 (92) 95 03/21/19 06:00 92 23 157/60 (92) 95 03/21/19 05:00 92 24 140/63 (88) 100 03/21/19 05:00 92 24 140/63 (88) 100 03/21/19 04:00 82 03/21/19 04:00 6.0 28 03/21/19 04:00 88 21 114/84 (94) 100 03/21/19 04:00 88 21 114/84 (94) 100 03/21/19 04:00 T-piece 6.0 T-piece 6.0 03/21/19 03:33 87 20 100 T-Piece 5.0 28 96 22 100 03/21/19 03:00 85 22 144/60 (88) 100 03/21/19 03:00 85 22 144/60 (88) 100 03/21/19 02:00 83 21 142/58 (86) 100 03/21/19 02:00 97.8 83 21 142/58 (86) 100 03/21/19 01:00 97 20 145/61 (89) 98 03/21/19 01:00 89 23 145/61 (89) 100 03/21/19 00:31 100 T-Piece 5.0 28 03/21/19 00:13 91 23 158/67 (97) 100 03/21/19 00:00 T-piece 6.0 T-piece 6.0 03/21/19 00:00 80 03/21/19 00:00 97 20 171/67 (101) 98 03/21/19 00:00 6.0 28 03/21/19 00:00 97 20 158/67 (97) 98 03/20/19 23:24 86 16 100 T-Piece 5.0 28 90 23 100 03/20/19 23:00 93 17 157/70 (99) 100 03/20/19 22:00 90 23 123/97 (106) 100 03/20/19 22:00 90 23 123/97 (106) 100 03/20/19 20:00 T-piece 6.0 T-piece 6.0 03/20/19 20:00 6.0 28 03/20/19 20:00 90 03/20/19 19:26 100 T-Piece 5.0 28 03/20/19 19:20 93 21 100 T-Piece 5.0 28 95 25 100 03/20/19 19:00 95 23 148/71 (96) 100 03/20/19 18:00 88 25 159/67 (97) 100 03/20/19 17:00 94 26 141/65 (90) 97 Critical Care - Subjective FI02: 28 Vent Support Mode: CPAP Vent Tidal Volume: 450 Sputum Amount: Moderate PEEP: 5.0 PIP: 19 Tube Feeding Amount: 50 I&O: Intake and Output 03/20/19 03/21/19 19:00 07:00 Intake Total 1232 ml 830 ml Output Total 600 ml 770 ml Balance 632 ml 60 ml Free Water 240 ml 60 ml IV Total 442 ml Tube Feeding 550 ml 550 ml Other 220 ml Output Urine Total 600 ml 670 ml Other 100 ml ET-Tube: 6.0 Bg Moffett MD Mar 21, 2019 16:53
--- NOTE | 2019-03-21 16:53 | NUR ---
NURSE NOTES: Received patient from Gisselle Sosa RN. Patient showing sinus rhythm on the environmental monitoring technician. No sign of acute distress. Patient opens eyes but does not track or communicate. Patient trach to T-piece with 28% FiO2. Patient tolerating with moderate amount of thin/frothy secretions. Patient has gastrostomy/jejunostomy tube that is patent, asymptomatic. G tube open to gravity. J tube running tube feeding of Glucerna 1.5 at 50mL/hr at this time. Patient has purewick that is in place and draining at this time. Patient has sacral heeled wounds and right hand necrotic wound. All covered with dressings that are dry and intact. Patient has PICC line on right upper arm that is patent, asymptomatic, and saline locked. Patient bed in low position with bed alarm on and call light in reach. Repositioning and oral care done at this time. Will continue to monitor.
--- NOTE | 2019-03-21 16:54 | NUR ---
HAND-OFF: Report given to Gisselle Perez RN. Patient's condition remains the same. VSS.
--- NOTE | 2019-03-21 17:16 | General Progress Note ---
Assessment/Plan Status: stable, progressing Assessment/Plan: Assessment - N/V, periodic, including suctioning of feeds from mouth - suspect due to gastroparesis, possibly also from suctioning reflex - s/p G to J - suction gently - Elevated Alk phos / LFT - CT negative - abd U/S negative - check hepatitis serologies - negative - Anemia with OB (-) stools - Resp failure, s/p Trach - dysphagia, s/p PEG --> s/p GT change--> GJ tube - OBS, vegetative unresponsive state, bedbound state, contracted extremities, - minor GT tract inflammation / infection - treat locally - poor Prognosis Recommendations - laxative PRN - antibiotic ointment to GJT site PRN - aspiration precautions - elevate HOB Subjective Allergies: Coded Allergies: CODEINE (Verified Allergy, Unknown, HIVES, 09/15/09) Subjective seen in am tolerating TF now , with GJ set up d/w RN Objective Last 24 Hour Vital Signs Date Time Temp Pulse Resp B/P (MAP) Pulse Ox O2 Delivery O2 Flow Rate FiO2 03/21/19 17:00 73 19 126/48 (74) 100 03/21/19 16:00 6.0 28 03/21/19 16:00 74 03/21/19 16:00 T-piece 6.0 T-piece 6.0 03/21/19 16:00 98.1 80 24 163/108 (126) 100 03/21/19 15:00 80 23 139/57 (84) 100 03/21/19 14:38 90 20 100 T-Piece 5.0 28 84 20 99 03/21/19 14:00 81 20 138/54 (82) 98 03/21/19 13:20 100 T-Piece 5.0 28 03/21/19 13:00 98.6 84 24 151/60 (90) 100 03/21/19 12:00 84 23 103/43 (63) 100 03/21/19 12:00 6.0 28 03/21/19 12:00 81 03/21/19 12:00 T-piece 6.0 T-piece 6.0 03/21/19 11:08 101 24 100 T-Piece 5.0 28 104 22 99 03/21/19 11:00 103 21 133/54 (80) 94 03/21/19 10:00 84 19 118/48 (71) 98 03/21/19 09:00 90 24 155/61 (92) 98 03/21/19 08:00 98.8 88 22 151/54 (86) 99 03/21/19 08:00 T-piece 6.0 T-piece 6.0 03/21/19 08:00 6.0 28 03/21/19 08:00 86 03/21/19 07:22 100 T-Piece 5.0 28 03/21/19 07:21 86 20 100 T-Piece 5.0 28 83 24 100 03/21/19 07:00 87 23 155/57 (89) 100 03/21/19 06:00 92 23 157/60 (92) 95 03/21/19 06:00 92 23 157/60 (92) 95 03/21/19 05:00 92 24 140/63 (88) 100 03/21/19 05:00 92 24 140/63 (88) 100 03/21/19 04:00 82 03/21/19 04:00 6.0 28 03/21/19 04:00 88 21 114/84 (94) 100 03/21/19 04:00 88 21 114/84 (94) 100 03/21/19 04:00 T-piece 6.0 T-piece 6.0 03/21/19 03:33 87 20 100 T-Piece 5.0 28 96 22 100 03/21/19 03:00 85 22 144/60 (88) 100 03/21/19 03:00 85 22 144/60 (88) 100 03/21/19 02:00 83 21 142/58 (86) 100 03/21/19 02:00 97.8 83 21 142/58 (86) 100 03/21/19 01:00 97 20 145/61 (89) 98 03/21/19 01:00 89 23 145/61 (89) 100 03/21/19 00:31 100 T-Piece 5.0 28 03/21/19 00:13 91 23 158/67 (97) 100 03/21/19 00:00 T-piece 6.0 T-piece 6.0 03/21/19 00:00 80 03/21/19 00:00 97 20 171/67 (101) 98 03/21/19 00:00 6.0 28 03/21/19 00:00 97 20 158/67 (97) 98 03/20/19 23:24 86 16 100 T-Piece 5.0 28 90 23 100 03/20/19 23:00 93 17 157/70 (99) 100 03/20/19 22:00 90 23 123/97 (106) 100 03/20/19 22:00 90 23 123/97 (106) 100 03/20/19 20:00 T-piece 6.0 T-piece 6.0 03/20/19 20:00 6.0 28 03/20/19 20:00 90 03/20/19 19:26 100 T-Piece 5.0 28 03/20/19 19:20 93 21 100 T-Piece 5.0 28 95 25 100 03/20/19 19:00 95 23 148/71 (96) 100 03/20/19 18:00 88 25 159/67 (97) 100 Intake and Output 03/20/19 03/21/19 19:00 07:00 Intake Total 1232 ml 830 ml Output Total 600 ml 770 ml Balance 632 ml 60 ml Free Water 240 ml 60 ml IV Total 442 ml Tube Feeding 550 ml 550 ml Other 220 ml Output Urine Total 600 ml 670 ml Other 100 ml Laboratory Tests 03/21/19 05:17: White Blood Count 9.6, Red Blood Count 3.45L, Hemoglobin 9.5L, Hematocrit 29.5L , Mean Corpuscular Volume 86, Mean Corpuscular Hemoglobin 27.4, Mean Corpuscular Hemoglobin Concent 32.1, Red Cell Distribution Width 16.4H, Platelet Count 225, Mean Platelet Volume 5.8L, Neutrophils (%) (Auto) 58.8, Lymphocytes (%) (Auto) 29.9, Monocytes (%) (Auto) 6.2, Eosinophils (%) (Auto) 4.4H, Basophils (%) (Auto) 0.5, Sodium Level 137, Potassium Level 4.7, Chloride Level 103, Carbon Dioxide Level 30, Anion Gap 4L, Blood Urea Nitrogen 14, Creatinine 1.1, Estimat Glomerular Filtration Rate , Glucose Level 103, Calcium Level 9.1, Phosphorus Level 3.1, Magnesium Level 2.7H, Total Bilirubin 0.2, Aspartate Amino Transf (AST/SGOT) 34, Alanine Aminotransferase (ALT/SGPT) 33, Alkaline Phosphatase 182H, C-Reactive Protein, Quantitative 8.5H, Pro-B-Type Natriuretic Peptide 390H, Total Protein 8.0, Albumin 2.7L, Globulin 5.3, Albumin /Globulin Ratio 0.5L Height (Feet): 5 Height (Inches): 4.00 Weight (Pounds): 136 Objective Debilitated AA woman non-verbal NCAT (+) trach coarse ronchi RR obese abd, (+) GJT no edema (+) contractured extremities Celio Vaughan MD Mar 21, 2019 17:16
--- NOTE | 2019-03-21 18:38 | NUR ---
NURSE NOTES: Vital signs stable. No sign of acute distress. Repositioning and oral care performed. Patient oral and tracheal suctioned. Will continue to monitor. Bed in low position with bed alarm on and call light in reach.
--- NOTE | 2019-03-21 19:22 | NUR ---
HAND-OFF: Report given to JEANNINE Sykes. Patient vital signs stable at this time. Endorsed to monitor and follow up.
[2019-03-21] MEDS: Dyna-Hex 2% Top Sol 2oz TOPIC SCH (19:44)
--- NOTE | 2019-03-21 19:55 | NUR ---
NURSE NOTES: PATIENT RESPONSE TO NAME, OPEN EYES, DID NOT FOLLOW COMMANDS, RESPIRATION REGULAR, ON TRACH, FIO2 28% T- PIECE, O2 SATURATION 100% NOTED, ABDOMEN SOFT, NO BM STATUS, G-J TUBE INTACT AND PATENT, G TUBE DRAINING GRAVITY, ONGOING J TUBE FEEDING, GLUCERNA 1.5 AT 50ML/HR, TOLERATED FEEDING, NO N/V NOTED, KEPT HOB 30 DEGREES AND ASPIRATION PRECAUTION, VOID WITH PURE WICK, YELLOW URINE OUTED, PICC LINE TO RIGHT UPPER ARM, INTACT AND PATENT, KEPT SZ AND FALL PRECAUTION, MADE LOWER BED POSITION, ON BED ALARM AND LOCKED, PROVIDED CALL LIGHT WITHIN REACH BUT UNABLE TO USE STATUS, KEPT CONTINUE PLAN OF CARE.
--- NOTE | 2019-03-21 21:35 | NUR ---
NURSE NOTES: PT'S DAUGHTER STAYED AT BEDSIDE, PATIENT CALM, NO PAIN OR SOB NOTED.
--- NOTE | 2019-03-21 21:55 | Surgery Progress Note ---
Surgery Progress Note Subjective Additional Comments no acute events Objective Last 24 Hour Vital Signs Date Time Temp Pulse Resp B/P (MAP) Pulse Ox O2 Delivery O2 Flow Rate FiO2 03/21/19 21:00 83 22 136/57 (83) 100 03/21/19 20:00 98.5 80 25 153/57 (89) 100 03/21/19 20:00 T-piece 6.0 T-piece 6.0 03/21/19 20:00 6.0 28 03/21/19 19:50 75 03/21/19 19:37 91 25 100 T-Piece 5.0 28 76 22 99 03/21/19 19:37 99 T-Piece 5.0 28 03/21/19 19:00 83 20 169/73 (105) 99 03/21/19 18:00 70 19 109/50 (69) 99 03/21/19 17:00 73 19 126/48 (74) 100 03/21/19 16:00 6.0 28 03/21/19 16:00 74 03/21/19 16:00 T-piece 6.0 T-piece 6.0 03/21/19 16:00 98.1 80 24 163/108 (126) 100 03/21/19 15:00 80 23 139/57 (84) 100 03/21/19 14:38 90 20 100 T-Piece 5.0 28 84 20 99 03/21/19 14:00 81 20 138/54 (82) 98 03/21/19 13:20 100 T-Piece 5.0 28 03/21/19 13:00 98.6 84 24 151/60 (90) 100 03/21/19 12:00 84 23 103/43 (63) 100 03/21/19 12:00 6.0 28 03/21/19 12:00 81 03/21/19 12:00 T-piece 6.0 T-piece 6.0 03/21/19 11:08 101 24 100 T-Piece 5.0 28 104 22 99 03/21/19 11:00 103 21 133/54 (80) 94 03/21/19 10:00 84 19 118/48 (71) 98 03/21/19 09:00 90 24 155/61 (92) 98 03/21/19 08:00 98.8 88 22 151/54 (86) 99 03/21/19 08:00 T-piece 6.0 T-piece 6.0 03/21/19 08:00 6.0 28 03/21/19 08:00 86 03/21/19 07:22 100 T-Piece 5.0 28 03/21/19 07:21 86 20 100 T-Piece 5.0 28 83 24 100 03/21/19 07:00 87 23 155/57 (89) 100 03/21/19 06:00 92 23 157/60 (92) 95 03/21/19 06:00 92 23 157/60 (92) 95 03/21/19 05:00 92 24 140/63 (88) 100 03/21/19 05:00 92 24 140/63 (88) 100 03/21/19 04:00 82 03/21/19 04:00 6.0 28 03/21/19 04:00 88 21 114/84 (94) 100 03/21/19 04:00 88 21 114/84 (94) 100 03/21/19 04:00 T-piece 6.0 T-piece 6.0 03/21/19 03:33 87 20 100 T-Piece 5.0 28 96 22 100 03/21/19 03:00 85 22 144/60 (88) 100 03/21/19 03:00 85 22 144/60 (88) 100 03/21/19 02:00 83 21 142/58 (86) 100 03/21/19 02:00 97.8 83 21 142/58 (86) 100 03/21/19 01:00 97 20 145/61 (89) 98 03/21/19 01:00 89 23 145/61 (89) 100 03/21/19 00:31 100 T-Piece 5.0 28 03/21/19 00:13 91 23 158/67 (97) 100 03/21/19 00:00 T-piece 6.0 T-piece 6.0 03/21/19 00:00 80 03/21/19 00:00 97 20 171/67 (101) 98 03/21/19 00:00 6.0 28 03/21/19 00:00 97 20 158/67 (97) 98 03/20/19 23:24 86 16 100 T-Piece 5.0 28 90 23 100 12/20/19 23:00 93 17 157/70 (99) 100 03/20/19 22:00 90 23 123/97 (106) 100 03/20/19 22:00 90 23 123/97 (106) 100 I&O Intake and Output 03/20/19 03/21/19 19:00 07:00 Intake Total 1232 ml 830 ml Output Total 600 ml 770 ml Balance 632 ml 60 ml Free Water 240 ml 60 ml IV Total 442 ml Tube Feeding 550 ml 550 ml Other 220 ml Output Urine Total 600 ml 670 ml Other 100 ml Dressing: dry Wound: clean Cardiovascular: RSR Respiratory: clear, decreased breath sounds Abdomen: soft, present bowel sounds Extremities: no cyanosis Laboratory Tests Test 03/21/19 05:17 White Blood Count 9.6 K/UL (4.8-10.8) Red Blood Count 3.45 M/UL (4.20-5.40) L Hemoglobin 9.5 G/DL (12.0-16.0) L Hematocrit 29.5 % (37.0-47.0) L Mean Corpuscular Volume 86 FL (80-99) Mean Corpuscular Hemoglobin 27.4 PG (27.0-31.0) Mean Corpuscular Hemoglobin Concent 32.1 G/DL (32.0-36.0) Red Cell Distribution Width 16.4 % (11.6-14.8) H Platelet Count 225 K/UL (150-450) Mean Platelet Volume 5.8 FL (6.5-10.1) L Neutrophils (%) (Auto) 58.8 % (45.0-75.0) Lymphocytes (%) (Auto) 29.9 % (20.0-45.0) Monocytes (%) (Auto) 6.2 % (1.0-10.0) Eosinophils (%) (Auto) 4.4 % (0.0-3.0) H Basophils (%) (Auto) 0.5 % (0.0-2.0) Sodium Level 137 MMOL/L (136-145) Potassium Level 4.7 MMOL/L (3.5-5.1) Chloride Level 103 MMOL/L (98-107) Carbon Dioxide Level 30 MMOL/L (21-32) Anion Gap 4 mmol/L (5-15) L Blood Urea Nitrogen 14 mg/dL (7-18) Creatinine 1.1 MG/DL (0.55-1.30) Estimat Glomerular Filtration Rate mL/min (>60) Glucose Level 103 MG/DL (74-106) Calcium Level 9.1 MG/DL (8.5-10.1) Phosphorus Level 3.1 MG/DL (2.5-4.9) Magnesium Level 2.7 MG/DL (1.8-2.4) H Total Bilirubin 0.2 MG/DL (0.2-1.0) Aspartate Amino Transf (AST/SGOT) 34 U/L (15-37) Alanine Aminotransferase (ALT/SGPT) 33 U/L (12-78) Alkaline Phosphatase 182 U/L (46-116) H C-Reactive Protein, Quantitative 8.5 mg/dL (0.00-0.90) H Pro-B-Type Natriuretic Peptide 390 pg/mL (0-125) H Total Protein 8.0 G/DL (6.4-8.2) Albumin 2.7 G/DL (3.4-5.0) L Globulin 5.3 g/dL Albumin/Globulin Ratio 0.5 (1.0-2.7) L Plan Problems: (1) Sacral decubitus ulcer Assessment & Plan: This is a 83-year-old female with multiple medical committees that is currently admitted for medical care and management and identified to have multiple wounds requiring care. On admission patient noted to have a resolved sacral decubitus ulcer. Has had prior care and is well-healed at this time. Will ensure it does not open up again. Patient has a right ischial decubitus ulcer that is resolved. Scar intact and well formed. Will monitor to ensure it does not open up again. Patient has a left ischial decubitus ulcer that can be identified to be stage IV with palpable bone that has been resolving as noted by the periwound tissue and scar but open area approximately 1 cm x 1.5 cm few millimeters deep to bone identified. Unsure if this is been to be completely healed prior and has since opened or if has been healing at this level. No foul odor no drainage was unsure local wound care until healed Bilateral heels soft without signs of injury Resolving pressure injury L ischium(L)1.8cm x (W)1cm.Scattered biofilm at base of wound. Edges flat and adherent with surrounding hyperpigmentation. No odor or exudate noted. Sacrum is pale pink with surrounding hyperpigmentation. Hyperpigmentation R ischium with small sheared area centrally.No areas of erythema or exudate noted. Both heels are soft but blanchable. Skin Assessed under collar of trach and no evidence of skin breakdown noted. All wound Tx. are effective and continued as ordered. Pt ahs an APM/Belén mattress overlay and is being repositioned per protocols and per tolerance.No new skin concerns noted. Full thickness pressure injury L Ischium with small amt biofilm (L)1.8cm x (W) 1cm. Surrounding pink hyperpigmentation. No odor or exudate noted. Haugen hyperpigmentation from previous wound noted to sacrum. Pt also noted to have Cat 2 Skin Tear dorsal L hand, L 5th metatarsal extending into palm of hand. 80% skin flap in situ.Both heels are dry firm and blanchable. No other skin concerns noted. R ischial wound has resolved. Haugen epithelial with surrounding hyperpigmentation. from historical wound. Full thickness pressure injury L ischium. Haugen granulation at base of wound. Borders are macerated with Surrounding hyperpigmentation.Small amt non-odorous serous exudate noted.(L)0.7cm x (W)0.8cm. Skin hyperpigmentation from historical wound noted to Sacrum. Small sheared area noted to sacrococcygeal area.(L)0.4cm x (W)0.3cm.Small amt sanguineous exudate noted. Reabsorbed blister with semi-detached dry necrotic cap noted to web space of L thumb and L index fingers extending into palm of L hand. No odor or exudate noted. Skin assessed under tracheal collar and no erythema or evidence of Skin Breakdown noted. NO new skin concerns noted . Good hand hygiene provided to both hands. R hand contracted and fisted. Fingernails trimmed. Wound care provided along with Primary nurse. Wound Tx continued as ordered. New order obtained from to apply Betadine to wound L hand Daily. Tx done as ordered. L hand wrapped with kerlix weaving kerlix between fingers to separate fingers. Moisture Barrier applied to sacrum ,R ischium. Each site covered with Optifoam drsg. Both lower ext washed and moisturized. Cavilon Skin Barrier applied to both heels.Each heel covered with Optifoam drsgs. Pt positioned with pillows and both heels off-loaded with pillow. Tx.Plan: Apply Betadine to wound L hand. Cover with Gauze and wrap with Kerlix Daily and prn. Cleanse L ischial wound with Saline. Apply Therahoney. Apply Moisture Barrier periwound. Cover with Optifoam drsgevery 3 days and prn. Apply Moisture Barrier Paste to R ischium and Sacrum. Cover each area with Optifoam drsg. Change every 3 days and prn. Apply Cavilon Skin Barrier to both heels. Cover each heel with Optifoam drsg. Change every 7 days and prn. APM/BELÉN Mattress overlay. Reposition at least every 2hours or as tolerated. Off-load heels with pillow. Cleanse Blister Dorsal and palm of L hand with saline. Versatel One Silicone Contact Layer(Applied). Apply Silvasorb Gel. Wrap with Kerlix Gauze.Change every 7 days and prn. Apply Moisture Barrier to sacrum. Cover with Optifoam drsg. Change every 3 days and prn. Cleanse L ischial wound with saline. Apply Therahoney. Apply Moisture Barrier Paste periwound. Cover with Optifoam drsg. Change every 3 days and prn. Apply Cavilon Skin Barrier to both heels. Cover each heel with Optifoam drsg. Change every 7 days and prn. APM/BELÉN Mattress overlay. Reposition at least every 2hours or as tolerated. Off-load heels with pillow. Nutritional optimization We will monitor follow with recommendations cont with above upon d/c (2) Sepsis Assessment & Plan: IV abx as per ID trend labs improving wounds unlikely etiology likely respiratory imaging noted and okay abnormal lft's stable PICC on Abx in ICU for desaturation CXR with consolidation cont with frequent suctioning d/c planning possible placement found Evidence of left lower lobe pneumonia, also previously demonstrated Gastrostomy in good position Mild diastasis of the rectus abdominis musculature again demonstrated Retrosacral decubitus changes, better depicted on prior exam which included the pelvis Small hiatal hernia with evidence of trace gastroesophageal reflux Discussed with GI. Recommend GJ family still pending decision (3) Feeding by G-tube Assessment & Plan: DAILY ESTIMATED NEEDS: Needs based on Pulmonary, wounds, bedbound/ 61kg adj 25-30 kcals/kg 4794-2084 total kcals 1.25-2 g protein/kg 76-122 g total protein 25-30 mL/kg 2964-8806 total fluid mLs NUTRITION DIAGNOSIS: * Increased kcal/prot needs R/T wound healing as evidenced by BL buttocks and sacral wound photos, refer to WC eval. * Swallowing difficulty R/T respiratory status as evidenced by pt on T-collar, now back the vent, PEG dep. CURRENT TF:Glucerna 1.5 @ 25ml/hr x 24 hrs - currently HELD d/t emesis ENTERAL NUTRITION RECOMMENDATIONS: Glucerna 1.5 @ 45ml/hr x 24 hrs to provide 1080ml, 1620kcal, 89g prot, 820ml free water - As medically able, rec to increase goal rate to 45ml/hr x24 hrs to meet 100% est kcal/prot needs - HOB over 30 degrees - Water flush of 170ml q 6 hrs * W/ continued regurgitation/ emesis, rec Osmolite 1.5 for GI tolerance. Rec goal of 45ml/hr to provide: 1080ml, 1620 kcal, 68g pro, 823ml free H20. * Add Prosource 1 pack daily to provide additional 11g pro. ADDITIONAL RECOMMENDATIONS: 1) Weekly weights 2) Wound healing: Add Cristian 1pkt BID w/ good TF tolerance + MVI x1 daily 3) Monitor lytes, replete as needed 4) Monitor BGs closely, need for NISS (wnl) 5) Monitor TF tolerance: rec Tf change as above if not (4) Chronic vegetative state Assessment & Plan: incontinence of urine and stool. can soil dressings. nurses doing great job with monitoring and changing prn (5) Leukocytosis Walter Madera Mar 21, 2019 21:55
--- NOTE | 2019-03-21 22:57 | NUR ---
NURSE NOTES: NO FAMILY MEMBERS AT BEDSIDE, PATIENT ASLEEP STATUS, NO DISTRESS NOTED AT THIS TIME.
[2019-03-22] VITALS (25 sets, daily range): BP systolic 115–166; BP diastolic 47–82
--- NOTE | 2019-03-22 00:24 | NUR ---
NURSE NOTES: REPOSITIONED AND ORAL CARE WAS DONE, KEPT HOB 30 DEGREES.
[2019-03-22] MEDS: Metoclopramide 10mg/2ml Inj IVP SCH ×4 (01:36→19:50)
--- NOTE | 2019-03-22 02:58 | NUR ---
NURSE NOTES: PATIENT ASLEEP STATUS, NO N/V NOTED, TOLERATED J TUBE FEEDING STATUS, WILL CONTINUE PLAN OF CARE.
[2019-03-22] MEDS: Albuterol/Ipratropium 3ml neb HHN SCH ×6 (03:20→23:07)
[2019-03-22] MEDS: Acetylcysteine 20% Soln 4ml HHN SCH ×6 (03:28→23:07)
--- NOTE | 2019-03-22 04:46 | NUR ---
NURSE NOTES: MORNING CARE WAS DONE, NO BM STATUS AT THIS TIME.
--- NOTE | 2019-03-22 05:55 | NUR ---
NURSE NOTES: DR. VUONG MADE NEW ORDER, WILL FOLLOW UP.
--- NOTE | 2019-03-22 06:53 | NUR ---
NURSE NOTES: SEEN THE PATIENT BY DR. LI, NO NEW ORDER STATUS.
--- NOTE | 2019-03-22 07:08 | NUR ---
HAND-OFF: Report given to Eddie BALLARD RN.
--- NOTE | 2019-03-22 07:09 | NUR ---
NURSE NOTES: Received patient from JEANINNE Sykes. Patient opens eyes but does not track. Patient on trach to T-piece at 28%. Patient tolerating with 98% SpO2. Patient RR 25. Patient has gastrostomy/jejunostomy tube with G tube draining to gravity and J tube running tube feeding Glucerna 1.5 at 50mL/hr at this time with no residual. Patient has not had a bowel movement since 03/19. Will notify MD. Patient has purewick that is patent, asymptomatic, and draining straw yellow urine at this time. Patient has sacral heeled wound covered with Optifoam and left hand necrotic wound with dressing dry, clean, and intact. Will replace when bed bath done. Patient on low air loss mattress for skin protection. patient will be turned every two hours. Patient has right upper arm PICC line with dressing dry, intact, and changed 03/22 at 0400. Patient bed in low position with bed alarm on and call light in reach at this time. oral care, tracheal/oral suction, and repositioning done at this time. Will continue to monitor.
--- NOTE | 2019-03-22 07:15 | Progress Note ---
DATE: 03/21/2019 CARDIOLOGY PROGRESS NOTE SUBJECTIVE: G-tube was changed to GJ tube yesterday. The patient was restarted on feedings, have been tolerated thus far. No vomiting noted. OBJECTIVE: VITAL SIGNS: Blood pressure 126/78, pulse 73, respirations 19, and afebrile. LUNGS: Bilateral breath sounds. CARDIAC: Regular rhythm rate. Normal S1, S2. ABDOMEN: Soft. EXTREMITIES: Trace edema. T-tube collar in place. GJ tube site intact. IMPRESSION: Progressing. PLAN: 1. Continue current regimen. 2. Discontinue IV fluids. 3. Follow up laboratory studies. 4. Discharge planning. Bg Hagen M.D. DR: SHIRA JOB#: [id number] CC:
--- NOTE | 2019-03-22 08:22 | NUR ---
NURSE NOTES: Notified Dr Vaughan in person that patient has not had a bowel movement since 03/19. Received order for Sorbitol PO 45mL once. Order read back, verified, and placed at this time.
--- NOTE | 2019-03-22 08:22 | NUR ---
RD ASSESSMENT & RECOMMENDATIONS SEE CARE ACTIVITY FOR COMPLETE ASSESSMENT DAILY ESTIMATED NEEDS: Needs based on Pulmonary, wounds, bedbound/ 61kg adj 25-30 kcals/kg 7825-9465 total kcals 1.25-2 g protein/kg 76-122 g total protein 25-30 mL/kg 8453-3948 total fluid mLs NUTRITION DIAGNOSIS: * Increased kcal/prot needs R/T wound healing as evidenced by BL buttocks and sacral wound photos, refer to eval. * Swallowing difficulty R/T respiratory status as evidenced by pt on T-collar, s/p G-J conversion CURRENT TF: Glucerna 1.5 @ 50ml/hr x 24 hrs ENTERAL NUTRITION RECOMMENDATIONS: Glucerna 1.5 @ 50ml/hr x 24 hrs to provide 1200ml, 1800 kcal, 99g pro, 911ml free H2O - Maintain at current rate as tolerated to meet 100% est needs - HOB over 30 degrees - Water flush of 170ml q 6 hrs ADDITIONAL RECOMMENDATIONS: 1) Weekly weights 2) Wound healing: Add Cristian 1pkt BID w/ continued good TF tolerance + MVI x1 daily 3) Monitor lytes, replete as needed (Low Mg) 4) Monitor BGs closely, need for NISS (wnl) 5) Monitor TF tolerance, lytes, need for Tf change .
[2019-03-22] MEDS: levETIRAcetam 500mg/5ml Liquid GT SCH ×2 (08:58→20:40)
[2019-03-22] MEDS: Pantoprazole Inj IVP SCH ×2 (09:00→20:40)
[2019-03-22] MEDS ORDERED: Sorbitol Solution UD 30ml ORAL SCH (09:00)
[2019-03-22] MEDS: Heparin 5000 units/ml inj SUBQ SCH ×2 (09:03→20:43)
--- NOTE | 2019-03-22 09:10 | NUR ---
NURSE NOTES: Patient potassium level 4.7 this morning, up from 4.3 yesterday after one dose K-Dur 20mEq given. K-Dur 20mEq held at this time. Will notify Dr Arteaga when he rounds on the patient.
[2019-03-22] MEDS: Bacitracin Oint 15gm Tube TOPIC SCH ×3 (09:30→17:56)
--- NOTE | 2019-03-22 10:23 | NUR ---
NURSE NOTES: Patient continues to cough frequently. Patient suctioned every hour. Patient remains on T-piece with FiO2 28%. Patient showing no sign of acute distress. Patient repositioned. bed in low position with bed alarm on and call light in reach.
--- NOTE | 2019-03-22 11:22 | Nephrology Progress Note ---
Assessment/Plan Status: stable, progressing Assessment/Plan: A/P 1) Acute renal failure- resolved 2) Respiratory failure - Trach 3) Low Mag- Low k , Low Na- resolved 4) UTI / Sepsis - per ID mgmt Subjective Date patient seen: Mar 22, 2019 Time patient seen: 11:21 ROS Limited/Unobtainable: Yes Allergies: Coded Allergies: CODEINE (Verified Allergy, Unknown, HIVES, 09/15/09) Subjective Patient trached Objective Last 24 Hour Vital Signs Date Time Temp Pulse Resp B/P (MAP) Pulse Ox O2 Delivery O2 Flow Rate FiO2 03/22/19 10:00 99 24 129/57 (81) 94 03/22/19 09:00 83 22 147/56 (86) 100 03/22/19 08:00 82 03/22/19 08:00 6.0 28 03/22/19 08:00 T-piece 6.0 T-piece 6.0 03/22/19 08:00 98.9 93 24 150/57 (88) 97 03/22/19 07:14 99 T-Piece 5.0 28 03/22/19 07:14 108 22 100 T-Piece 5.0 28 103 20 98 03/22/19 07:00 81 23 159/60 (93) 100 03/22/19 06:00 83 21 157/63 (94) 100 03/22/19 05:00 80 19 166/66 (99) 100 03/22/19 04:36 82 21 158/65 (96) 100 03/22/19 04:00 99.1 99 17 162/68 (99) 98 03/22/19 04:00 T-piece 6.0 T-piece 6.0 03/22/19 04:00 6.0 28 03/22/19 03:34 81 03/22/19 03:21 79 19 100 T-Piece 5.0 28 77 21 100 03/22/19 03:00 79 20 141/56 (84) 100 03/22/19 02:00 75 23 138/55 (82) 99 03/22/19 01:15 100 T-Piece 5.0 28 03/22/19 01:00 76 22 136/58 (84) 100 03/22/19 00:00 98.5 75 20 132/58 (82) 100 03/22/19 00:00 6.0 28 03/22/19 00:00 T-piece 6.0 T-piece 6.0 03/21/19 23:45 74 03/21/19 23:00 80 23 93/46 (62) 98 03/21/19 22:47 91 25 100 T-Piece 5.0 28 78 22 98 03/21/19 22:00 91 19 125/85 (98) 99 03/21/19 21:00 83 22 136/57 (83) 100 03/21/19 20:00 98.5 80 25 153/57 (89) 100 03/21/19 20:00 T-piece 6.0 T-piece 6.0 03/21/19 20:00 6.0 28 03/21/19 19:50 75 03/21/19 19:37 91 25 100 T-Piece 5.0 28 76 22 99 03/21/19 19:37 99 T-Piece 5.0 28 03/21/19 19:00 83 20 169/73 (105) 99 03/21/19 18:00 70 19 109/50 (69) 99 03/21/19 17:00 73 19 126/48 (74) 100 03/21/19 16:00 6.0 28 03/21/19 16:00 74 03/21/19 16:00 T-piece 6.0 T-piece 6.0 03/21/19 16:00 98.1 80 24 163/108 (126) 100 03/21/19 15:00 80 23 139/57 (84) 100 03/21/19 14:38 90 20 100 T-Piece 5.0 28 84 20 99 03/21/19 14:00 81 20 138/54 (82) 98 03/21/19 13:20 100 T-Piece 5.0 28 03/21/19 13:00 98.6 84 24 151/60 (90) 100 03/21/19 12:00 84 23 103/43 (63) 100 03/21/19 12:00 6.0 28 03/21/19 12:00 81 03/21/19 12:00 T-piece 6.0 T-piece 6.0 Intake and Output 03/21/19 03/22/19 19:00 07:00 Intake Total 670 ml 740 ml Output Total 435 ml 430 ml Balance 235 ml 310 ml Free Water 120 ml 60 ml Tube Feeding 550 ml 600 ml Other 80 ml Output Urine Total 435 ml 430 ml Height (Feet): 5 Height (Inches): 4.00 Weight (Pounds): 116 General Appearance: no apparent distress EENT: normal ENT inspection Neck: normal alignment, supple Cardiovascular: normal rate, regular rhythm Respiratory/Chest: rhonchi - bilaterally Abdomen: non tender, soft Edema: no edema noted Arm (L), no edema noted Arm (R), no edema noted Leg (L), no edema noted Leg (R), no edema noted Pedal (L), no edema noted Pedal (R), no edema noted Generalized Serafin Arteaga MD Mar 22, 2019 11:22
--- NOTE | 2019-03-22 11:44 | Infectious Diseases Prog Note ---
Assessment/Plan Assessment/Plan A 1. Providencia & Klebsiella pneumonia treated 2. respiratory failure 3. hypertension 4. CVA 5. dementia 6. sacral decubitus ulcer 7. rectal VRE colonization 8. Anemia 9. Proteus UTI 10. Acute renal failure 11. Leukocytosis resolved P 1.Observe off antibiotic 2. Frequent suctioning 3. Remove PICC line before discharge Subjective ROS Limited/Unobtainable: Yes Constitutional: Denies: fever Allergies: Coded Allergies: CODEINE (Verified Allergy, Unknown, HIVES, 09/15/09) Objective Vital Signs Last 24 Hour Vital Signs Date Time Temp Pulse Resp B/P (MAP) Pulse Ox O2 Delivery O2 Flow Rate FiO2 03/22/19 10:00 99 24 129/57 (81) 94 03/22/19 09:00 83 22 147/56 (86) 100 03/22/19 08:00 82 03/22/19 08:00 6.0 28 03/22/19 08:00 T-piece 6.0 T-piece 6.0 03/22/19 08:00 98.9 93 24 150/57 (88) 97 03/22/19 07:14 99 T-Piece 5.0 28 03/22/19 07:14 108 22 100 T-Piece 5.0 28 103 20 98 03/22/19 07:00 81 23 159/60 (93) 100 03/22/19 06:00 83 21 157/63 (94) 100 03/22/19 05:00 80 19 166/66 (99) 100 03/22/19 04:36 82 21 158/65 (96) 100 03/22/19 04:00 99.1 99 17 162/68 (99) 98 03/22/19 04:00 T-piece 6.0 T-piece 6.0 03/22/19 04:00 6.0 28 03/22/19 03:34 81 03/22/19 03:21 79 19 100 T-Piece 5.0 28 77 21 100 03/22/19 03:00 79 20 141/56 (84) 100 03/22/19 02:00 75 23 138/55 (82) 99 03/22/19 01:15 100 T-Piece 5.0 28 03/22/19 01:00 76 22 136/58 (84) 100 12/22/19 00:00 98.5 75 20 132/58 (82) 100 03/22/19 00:00 6.0 28 03/22/19 00:00 T-piece 6.0 T-piece 6.0 03/21/19 23:45 74 03/21/19 23:00 80 23 93/46 (62) 98 03/21/19 22:47 91 25 100 T-Piece 5.0 28 78 22 98 03/21/19 22:00 91 19 125/85 (98) 99 03/21/19 21:00 83 22 136/57 (83) 100 03/21/19 20:00 98.5 80 25 153/57 (89) 100 03/21/19 20:00 T-piece 6.0 T-piece 6.0 03/21/19 20:00 6.0 28 03/21/19 19:50 75 03/21/19 19:37 91 25 100 T-Piece 5.0 28 76 22 99 03/21/19 19:37 99 T-Piece 5.0 28 03/21/19 19:00 83 20 169/73 (105) 99 03/21/19 18:00 70 19 109/50 (69) 99 03/21/19 17:00 73 19 126/48 (74) 100 03/21/19 16:00 6.0 28 03/21/19 16:00 74 03/21/19 16:00 T-piece 6.0 T-piece 6.0 03/21/19 16:00 98.1 80 24 163/108 (126) 100 03/21/19 15:00 80 23 139/57 (84) 100 03/21/19 14:38 90 20 100 T-Piece 5.0 28 84 20 99 03/21/19 14:00 81 20 138/54 (82) 98 03/21/19 13:20 100 T-Piece 5.0 28 03/21/19 13:00 98.6 84 24 151/60 (90) 100 03/21/19 12:00 84 23 103/43 (63) 100 03/21/19 12:00 6.0 28 03/21/19 12:00 81 03/21/19 12:00 T-piece 6.0 T-piece 6.0 Height (Feet): 5 Height (Inches): 4.00 Weight (Pounds): 116 HEENT: status post trach Respiratory/Chest: lungs clear, other - on T bar, has respiratory secretions Cardiovascular: normal rate, other - R arm PICC line Extremities: no edema Neurologic/Psychiatric: aphasia Current Medications Medications (Trade) Dose Ordered Sig/Maicol Route PRN Reason Start Time Stop Time Status Last Admin Dose Admin Acetylcysteine (Mucomyst) 200 mg Q4HRT N 03/18/19 19:00 04/17/19 18:59 03/22/19 07:15 Albuterol/ Ipratropium (Albuterol/ Ipratropium) 3 ml Q4HRT [facility] 03/20/19 11:00 03/25/19 10:59 03/22/19 07:15 Atropine Sulfate (Atropine Opth Adriana) 2 drop TID SL 03/07/19 09:00 04/06/19 08:59 03/22/19 09:00 Bacitracin (Bacitracin 15gm tube) 1 applic THREE TIMES A DAY TOPIC 02/28/19 18:30 03/30/19 18:29 03/22/19 09:30 Chlorhexidine Gluconate (Cesilia-Hex 2%) 1 applic DAILY@1999 TOPIC 03/12/19 20:00 04/11/19 19:59 03/21/19 19:44 Heparin Sodium (Porcine) (Heparin 5000 units/ml) 5,000 units EVERY 12 HOURS SUBQ 03/15/19 21:00 03/23/19 23:14 03/22/19 09:03 Hydralazine HCl (Apresoline) 10 mg Q4H PRN IV For High Blood Pressure 03/12/19 09:00 04/11/19 08:59 03/18/19 18:17 Levetiracetam (Keppra) 750 mg Q12HR GT 03/15/19 21:00 03/23/19 23:29 03/22/19 08:58 Metoclopramide HCl (Reglan) 5 mg Q6H IVP 03/10/19 02:00 03/24/19 01:59 03/22/19 08:20 Ondansetron HCl (Zofran) 4 mg Q4H PRN IVP Nausea & Vomiting 03/18/19 18:15 04/17/19 18:14 03/21/19 08:27 Pantoprazole (Protonix) 40 mg EVERY 12 HOURS IVP 03/20/19 21:00 04/19/19 20:59 03/22/19 09:00 Potassium Chloride (K-Dur) 20 meq DAILY GT 03/21/19 09:00 04/11/19 08:59 03/21/19 08:36 Chauncey Liriano MD Mar 22, 2019 11:44
--- NOTE | 2019-03-22 11:52 | Surgery Progress Note ---
Surgery Progress Note Subjective Additional Comments no acute events stable Objective Last 24 Hour Vital Signs Date Time Temp Pulse Resp B/P (MAP) Pulse Ox O2 Delivery O2 Flow Rate FiO2 03/22/19 10:00 99 24 129/57 (81) 94 03/22/19 09:00 83 22 147/56 (86) 100 03/22/19 08:00 82 03/22/19 08:00 6.0 28 03/22/19 08:00 T-piece 6.0 T-piece 6.0 03/22/19 08:00 98.9 93 24 150/57 (88) 97 03/22/19 07:14 99 T-Piece 5.0 28 03/22/19 07:14 108 22 100 T-Piece 5.0 28 103 20 98 03/22/19 07:00 81 23 159/60 (93) 100 03/22/19 06:00 83 21 157/63 (94) 100 03/22/19 05:00 80 19 166/66 (99) 100 03/22/19 04:36 82 21 158/65 (96) 100 03/22/19 04:00 99.1 99 17 162/68 (99) 98 03/22/19 04:00 T-piece 6.0 T-piece 6.0 03/22/19 04:00 6.0 28 03/22/19 03:34 81 03/22/19 03:21 79 19 100 T-Piece 5.0 28 77 21 100 03/22/19 03:00 79 20 141/56 (84) 100 03/22/19 02:00 75 23 138/55 (82) 99 03/22/19 01:15 100 T-Piece 5.0 28 03/22/19 01:00 76 22 136/58 (84) 100 03/22/19 00:00 98.5 75 20 132/58 (82) 100 03/22/19 00:00 6.0 28 03/22/19 00:00 T-piece 6.0 T-piece 6.0 03/21/19 23:45 74 03/21/19 23:00 80 23 93/46 (62) 98 03/21/19 22:47 91 25 100 T-Piece 5.0 28 78 22 98 03/21/19 22:00 91 19 125/85 (98) 99 03/21/19 21:00 83 22 136/57 (83) 100 03/21/19 20:00 98.5 80 25 153/57 (89) 100 03/21/19 20:00 T-piece 6.0 T-piece 6.0 03/21/19 20:00 6.0 28 03/21/19 19:50 75 03/21/19 19:37 91 25 100 T-Piece 5.0 28 76 22 99 03/21/19 19:37 99 T-Piece 5.0 28 03/21/19 19:00 83 20 169/73 (105) 99 03/21/19 18:00 70 19 109/50 (69) 99 03/21/19 17:00 73 19 126/48 (74) 100 03/21/19 16:00 6.0 28 03/21/19 16:00 74 03/21/19 16:00 T-piece 6.0 T-piece 6.0 03/21/19 16:00 98.1 80 24 163/108 (126) 100 03/21/19 15:00 80 23 139/57 (84) 100 03/21/19 14:38 90 20 100 T-Piece 5.0 28 84 20 99 03/21/19 14:00 81 20 138/54 (82) 98 03/21/19 13:20 100 T-Piece 5.0 28 03/21/19 13:00 98.6 84 24 151/60 (90) 100 03/21/19 12:00 84 23 103/43 (63) 100 03/21/19 12:00 6.0 28 03/21/19 12:00 81 03/21/19 12:00 T-piece 6.0 T-piece 6.0 I&O Intake and Output 03/21/19 03/22/19 19:00 07:00 Intake Total 670 ml 740 ml Output Total 435 ml 430 ml Balance 235 ml 310 ml Free Water 120 ml 60 ml Tube Feeding 550 ml 600 ml Other 80 ml Output Urine Total 435 ml 430 ml Dressing: other Wound: other Drains: other Cardiovascular: RSR Respiratory: decreased breath sounds Abdomen: soft, present bowel sounds, non-distended Extremities: no tenderness, no cyanosis, other Plan Problems: (1) Sacral decubitus ulcer Assessment & Plan: This is a 83-year-old female with multiple medical committees that is currently admitted for medical care and management and identified to have multiple wounds requiring care. On admission patient noted to have a resolved sacral decubitus ulcer. Has had prior care and is well-healed at this time. Will ensure it does not open up again. Patient has a right ischial decubitus ulcer that is resolved. Scar intact and well formed. Will monitor to ensure it does not open up again. Patient has a left ischial decubitus ulcer that can be identified to be stage IV with palpable bone that has been resolving as noted by the periwound tissue and scar but open area approximately 1 cm x 1.5 cm few millimeters deep to bone identified. Unsure if this is been to be completely healed prior and has since opened or if has been healing at this level. No foul odor no drainage was unsure local wound care until healed Bilateral heels soft without signs of injury Resolving pressure injury L ischium(L)1.8cm x (W)1cm.Scattered biofilm at base of wound. Edges flat and adherent with surrounding hyperpigmentation. No odor or exudate noted. Sacrum is pale pink with surrounding hyperpigmentation. Hyperpigmentation R ischium with small sheared area centrally.No areas of erythema or exudate noted. Both heels are soft but blanchable. Skin Assessed under collar of trach and no evidence of skin breakdown noted. All wound Tx. are effective and continued as ordered. Pt ahs an APM/Belén mattress overlay and is being repositioned per protocols and per tolerance.No new skin concerns noted. Full thickness pressure injury L Ischium with small amt biofilm (L)1.8cm x (W) 1cm. Surrounding pink hyperpigmentation. No odor or exudate noted. [place] hyperpigmentation from previous wound noted to sacrum. Pt also noted to have Cat 2 Skin Tear dorsal L hand, L 5th metatarsal extending into palm of hand. 80% skin flap in situ.Both heels are dry firm and blanchable. No other skin concerns noted. R ischial wound has resolved. [place] epithelial with surrounding hyperpigmentation. from historical wound. Full thickness pressure injury L ischium. [place] granulation at base of wound. Borders are macerated with Surrounding hyperpigmentation.Small amt non-odorous serous exudate noted.(L)0.7cm x (W)0.8cm. Skin hyperpigmentation from historical wound noted to Sacrum. Small sheared area noted to sacrococcygeal area.(L)0.4cm x (W)0.3cm.Small amt sanguineous exudate noted. Reabsorbed blister with semi-detached dry necrotic cap noted to web space of L thumb and L index fingers extending into palm of L hand. No odor or exudate noted. Skin assessed under tracheal collar and no erythema or evidence of Skin Breakdown noted. NO new skin concerns noted . Good hand hygiene provided to both hands. R hand contracted and fisted. Fingernails trimmed. Wound care provided along with Primary nurse. Wound Tx continued as ordered. New order obtained from to apply Betadine to wound L hand Daily. Tx done as ordered. L hand wrapped with kerlix weaving kerlix between fingers to separate fingers. Moisture Barrier applied to sacrum ,R ischium. Each site covered with Optifoam drsg. Both lower ext washed and moisturized. [place] Skin Barrier applied to both heels.Each heel covered with Optifoam drsgs. Pt positioned with pillows and both heels off-loaded with pillow. Tx.Plan: Apply Betadine to wound L hand. Cover with Gauze and wrap with Kerlix Daily and prn. Cleanse L ischial wound with Saline. Apply Therahoney. Apply Moisture Barrier periwound. Cover with Optifoam drsgevery 3 days and prn. Apply Moisture Barrier Paste to R ischium and Sacrum. Cover each area with Optifoam drsg. Change every 3 days and prn. Apply Cavilon Skin Barrier to both heels. Cover each heel with Optifoam drsg. Change every 7 days and prn. APM/BELÉN Mattress overlay. Reposition at least every 2hours or as tolerated. Off-load heels with pillow. Cleanse Blister Dorsal and palm of L hand with saline. Versatel One Silicone Contact Layer(Applied). Apply Silvasorb Gel. Wrap with Kerlix Gauze.Change every 7 days and prn. Apply Moisture Barrier to sacrum. Cover with Optifoam drsg. Change every 3 days and prn. Cleanse L ischial wound with saline. Apply Therahoney. Apply Moisture Barrier Paste periwound. Cover with Optifoam drsg. Change every 3 days and prn. Apply Cavilon Skin Barrier to both heels. Cover each heel with Optifoam drsg. Change every 7 days and prn. APM/BELÉN Mattress overlay. Reposition at least every 2hours or as tolerated. Off-load heels with pillow. Nutritional optimization We will monitor follow with recommendations cont with above upon d/c (2) Sepsis Assessment & Plan: IV abx as per ID trend labs improving wounds unlikely etiology likely respiratory imaging noted and okay abnormal lft's stable PICC on Abx in ICU for desaturation CXR with consolidation cont with frequent suctioning d/c planning possible placement found Evidence of left lower lobe pneumonia, also previously demonstrated Gastrostomy in good position Mild diastasis of the rectus abdominis musculature again demonstrated Retrosacral decubitus changes, better depicted on prior exam which included the pelvis Small hiatal hernia with evidence of trace gastroesophageal reflux Discussed with GI. Recommend GJ family still pending decision (3) Feeding by G-tube Assessment & Plan: DAILY ESTIMATED NEEDS: Needs based on Pulmonary, wounds, bedbound/ 61kg adj 25-30 kcals/kg 3723-4635 total kcals 1.25-2 g protein/kg 76-122 g total protein 25-30 mL/kg 8263-7662 total fluid mLs NUTRITION DIAGNOSIS: * Increased kcal/prot needs R/T wound healing as evidenced by BL buttocks and sacral wound photos, refer to WC eval. * Swallowing difficulty R/T respiratory status as evidenced by pt on T-collar, now back the vent, PEG dep. CURRENT TF:Glucerna 1.5 @ 25ml/hr x 24 hrs - currently HELD d/t emesis ENTERAL NUTRITION RECOMMENDATIONS: Glucerna 1.5 @ 45ml/hr x 24 hrs to provide 1080ml, 1620kcal, 89g prot, 820ml free water - As medically able, rec to increase goal rate to 45ml/hr x24 hrs to meet 100% est kcal/prot needs - HOB over 30 degrees - Water flush of 170ml q 6 hrs * W/ continued regurgitation/ emesis, rec Osmolite 1.5 for GI tolerance. Rec goal of 45ml/hr to provide: 1080ml, 1620 kcal, 68g pro, 823ml free H20. * Add Prosource 1 pack daily to provide additional 11g pro. ADDITIONAL RECOMMENDATIONS: 1) Weekly weights 2) Wound healing: Add Cristian 1pkt BID w/ good TF tolerance + MVI x1 daily 3) Monitor lytes, replete as needed 4) Monitor BGs closely, need for NISS (wnl) 5) Monitor TF tolerance: rec Tf change as above if not (4) Chronic vegetative state Assessment & Plan: incontinence of urine and stool. can soil dressings. nurses doing great job with monitoring and changing prn (5) Leukocytosis Walter Madera Mar 22, 2019 11:52
--- NOTE | 2019-03-22 12:00 | NUR ---
NURSE NOTES: Patient opens eyes but does not track. Patient remains trach to T-piece at 28%. Patient tolerating with 99% SpO2. Patient RR 24. Gastrostomy/jejunostomy tube with G tube draining to gravity and J tube running tube feeding Glucerna 1.5 at 50mL/hr at this time with no residual. Purewick patent, asymptomatic, and draining straw yellow urine at this time. PICC line with dressing dry, intact. Patient bed in low position with bed alarm on and call light in reach at this time. oral care, tracheal/oral suction, and repositioning done at this time. Patient has large bowel movement at this time. Patient bed bath done at this time. All wound dressings changed. Will continue to monitor.
--- NOTE | 2019-03-22 14:00 | NUR ---
NURSE NOTES: Patient continues to have copious secretions both oral and tracheal. Will continue suction. Patient desaturated at this time to 89%. FiO2 increased to 35%. Oxygen saturation improved to 95% now. Will continue to monitor. Patient repositioned.
--- NOTE | 2019-03-22 16:00 | NUR ---
NURSE NOTES: Patient continues to open eyes but does not track. Patient remains on trach to T-piece at 35%. SpO2 100% at this time. Patient RR 22. Gastrostomy/jejunostomy tube with G tube draining to gravity and J tube running tube feeding Glucerna 1.5 at 50mL/hr at this time with no residual. Purewick patent, asymptomatic, and draining straw yellow urine at this time. PICC line with dressing dry, intact. Patient bed in low position with bed alarm on and call light in reach at this time. oral care, tracheal/oral suction, and repositioning done at this time.
[2019-03-22] MEDS ORDERED: NS 275ml ONE (16:20)
--- NOTE | 2019-03-22 17:43 | Pulmonolgy Critical Care Note ---
Critical Care - Asmt/Plan Assessment/Plan: Pulmonary CCM Progress Note Assessment/Plan Impression: Sepsis syndrome Pneumonia, KPC VDRF, Trach, G tube, Hypertension, Cardiac disease, Dementia, Previous CVA, Seizure disorder, Respiratory failure with hypoxia, on TC Anemia Sacral ulcer renal cyst pulmonary congestion Plan respiratory care to continue as is, TC as tolerated atropine neb therapy SNF meds as is off vent as able and has been off for several day Oxygen as needed Monitor labs daily changes noted and reviewed feeds as tolerated monitor albumin levels and provide protein and nutrition elevate head aspiration precautions Patient is a DNR. No CPR. ICU care reviewed medications/laboratory data/nursing notes/ICU care reviewed in detail note reviewed and edited care discussed with RN and RT ICU time spent 45 minutes Subjective Allergies: Coded Allergies: CODEINE (Verified Allergy, Unknown, HIVES, 09/15/09) Subjective respiratory care noted congestion- improved with atropine ICU care reviewed supportive care noted and reviewed RT care reviewed overnight care noted findings reviewed and discussed in detail with nursing and RT seen earlier this am Objective Vital Signs Noted Objective WDWN NAD contracted off vent reduced breath sounds bilaterally with some rhonchi; no wheeze [id number] without MRG NABS nontender no HSM no CC minimal nonfocal nonverbal trach and gt reviewed and edited Laboratory Tests Noted Critical Care - Objective Last 24 Hour Vital Signs Date Time Temp Pulse Resp B/P (MAP) Pulse Ox O2 Delivery O2 Flow Rate FiO2 03/22/19 16:00 98.9 86 24 165/72 (103) 100 03/22/19 16:00 6.0 28 03/22/19 16:00 T-piece 6.0 T-piece 6.0 03/22/19 15:58 87 18 100 T-Piece 5.0 28 88 22 99 03/22/19 15:00 86 26 154/61 (92) 100 03/22/19 14:00 93 27 138/63 (88) 98 03/22/19 13:07 99 T-Piece 5.0 28 03/22/19 13:00 97 26 115/47 (69) 98 03/22/19 12:00 6.0 28 03/22/19 12:00 T-piece 6.0 T-piece 6.0 03/22/19 12:00 99.1 98 27 143/57 (85) 97 03/22/19 12:00 95 03/22/19 11:00 96 26 140/62 (88) 99 03/22/19 10:00 99 24 129/57 (81) 94 03/22/19 09:00 83 22 147/56 (86) 100 03/22/19 08:00 82 03/22/19 08:00 6.0 28 03/22/19 08:00 T-piece 6.0 T-piece 6.0 03/22/19 08:00 98.9 93 24 150/57 (88) 97 03/22/19 07:14 99 T-Piece 5.0 28 03/22/19 07:14 108 22 100 T-Piece 5.0 28 103 20 98 03/22/19 07:00 81 23 159/60 (93) 100 03/22/19 06:00 83 21 157/63 (94) 100 03/22/19 05:00 80 19 166/66 (99) 100 03/22/19 04:36 82 21 158/65 (96) 100 03/22/19 04:00 99.1 99 17 162/68 (99) 98 03/22/19 04:00 T-piece 6.0 T-piece 6.0 03/22/19 04:00 6.0 28 03/22/19 03:34 81 03/22/19 03:21 79 19 100 T-Piece 5.0 28 77 21 100 03/22/19 03:00 79 20 141/56 (84) 100 03/22/19 02:00 75 23 138/55 (82) 99 03/22/19 01:15 100 T-Piece 5.0 28 03/22/19 01:00 76 22 136/58 (84) 100 03/22/19 00:00 98.5 75 20 132/58 (82) 100 03/22/19 00:00 6.0 28 03/22/19 00:00 T-piece 6.0 T-piece 6.0 03/21/19 23:45 74 03/21/19 23:00 80 23 93/46 (62) 98 03/21/19 22:47 91 25 100 T-Piece 5.0 28 78 22 98 03/21/19 22:00 91 19 125/85 (98) 99 03/21/19 21:00 83 22 136/57 (83) 100 03/21/19 20:00 98.5 80 25 153/57 (89) 100 03/21/19 20:00 T-piece 6.0 T-piece 6.0 03/21/19 20:00 6.0 28 03/21/19 19:50 75 03/21/19 19:37 91 25 100 T-Piece 5.0 28 76 22 99 03/21/19 19:37 99 T-Piece 5.0 28 03/21/19 19:00 83 20 169/73 (105) 99 03/21/19 18:00 70 19 109/50 (69) 99 Critical Care - Subjective ROS Limited/Unobtainable: No FI02: 28 Vent Support Mode: CPAP Vent Tidal Volume: 450 Sputum Amount: Moderate PEEP: 5.0 PIP: 19 Tube Feeding Amount: 50 I&O: Intake and Output 03/21/19 03/22/19 19:00 07:00 Intake Total 670 ml 740 ml Output Total 435 ml 430 ml Balance 235 ml 310 ml Free Water 120 ml 60 ml Tube Feeding 550 ml 600 ml Other 80 ml Output Urine Total 435 ml 430 ml ET-Tube: 6.0 Bg Moffett MD Mar 22, 2019 17:43
--- NOTE | 2019-03-22 17:48 | General Progress Note ---
Assessment/Plan Status: stable, progressing Assessment/Plan: Assessment - N/V, periodic, including suctioning of feeds from mouth - suspect due to gastroparesis, possibly also from suctioning reflex - s/p G to J --> now tolerating TF at goal - suction gently - Elevated Alk phos / LFT - CT negative - abd U/S negative - check hepatitis serologies - negative - Anemia with OB (-) stools - Resp failure, s/p Trach - dysphagia, s/p PEG --> s/p GT change--> GJ tube - OBS, vegetative unresponsive state, bedbound state, contracted extremities, - minor GT tract inflammation / infection - treat locally - poor Prognosis Recommendations - laxative PRN - antibiotic ointment to GJT site PRN - aspiration precautions - elevate HOB - continue TF Subjective Allergies: Coded Allergies: CODEINE (Verified Allergy, Unknown, HIVES, 09/15/09) Subjective seen in am tolerating TF now x 2 days, with GJ set up d/w RN Objective Last 24 Hour Vital Signs Date Time Temp Pulse Resp B/P (MAP) Pulse Ox O2 Delivery O2 Flow Rate FiO2 03/22/19 16:00 98.9 86 24 165/72 (103) 100 03/22/19 16:00 6.0 28 03/22/19 16:00 T-piece 6.0 T-piece 6.0 03/22/19 15:58 87 18 100 T-Piece 5.0 28 88 22 99 03/22/19 15:00 86 26 154/61 (92) 100 03/22/19 14:00 93 27 138/63 (88) 98 03/22/19 13:07 99 T-Piece 5.0 28 03/22/19 13:00 97 26 115/47 (69) 98 03/22/19 12:00 6.0 28 03/22/19 12:00 T-piece 6.0 T-piece 6.0 03/22/19 12:00 99.1 98 27 143/57 (85) 97 03/22/19 12:00 95 03/22/19 11:00 96 26 140/62 (88) 99 03/22/19 10:00 99 24 129/57 (81) 94 03/22/19 09:00 83 22 147/56 (86) 100 03/22/19 08:00 82 03/22/19 08:00 6.0 28 03/22/19 08:00 T-piece 6.0 T-piece 6.0 03/22/19 08:00 98.9 93 24 150/57 (88) 97 03/22/19 07:14 99 T-Piece 5.0 28 03/22/19 07:14 108 22 100 T-Piece 5.0 28 103 20 98 03/22/19 07:00 81 23 159/60 (93) 100 03/22/19 06:00 83 21 157/63 (94) 100 03/22/19 05:00 80 19 166/66 (99) 100 03/22/19 04:36 82 21 158/65 (96) 100 03/22/19 04:00 99.1 99 17 162/68 (99) 98 03/22/19 04:00 T-piece 6.0 T-piece 6.0 03/22/19 04:00 6.0 28 03/22/19 03:34 81 03/22/19 03:21 79 19 100 T-Piece 5.0 28 77 21 100 03/22/19 03:00 79 20 141/56 (84) 100 03/22/19 02:00 75 23 138/55 (82) 99 03/22/19 01:15 100 T-Piece 5.0 28 03/22/19 01:00 76 22 136/58 (84) 100 03/22/19 00:00 98.5 75 20 132/58 (82) 100 03/22/19 00:00 6.0 28 03/22/19 00:00 T-piece 6.0 T-piece 6.0 03/21/19 23:45 74 03/21/19 23:00 80 23 93/46 (62) 98 03/21/19 22:47 91 25 100 T-Piece 5.0 28 78 22 98 03/21/19 22:00 91 19 125/85 (98) 99 03/21/19 21:00 83 22 136/57 (83) 100 03/21/19 20:00 98.5 80 25 153/57 (89) 100 03/21/19 20:00 T-piece 6.0 T-piece 6.0 03/21/19 20:00 6.0 28 03/21/19 19:50 75 03/21/19 19:37 91 25 100 T-Piece 5.0 28 76 22 99 03/21/19 19:37 99 T-Piece 5.0 28 03/21/19 19:00 83 20 169/73 (105) 99 03/21/19 18:00 70 19 109/50 (69) 99 Intake and Output 03/21/19 03/22/19 19:00 07:00 Intake Total 670 ml 740 ml Output Total 435 ml 430 ml Balance 235 ml 310 ml Free Water 120 ml 60 ml Tube Feeding 550 ml 600 ml Other 80 ml Output Urine Total 435 ml 430 ml Height (Feet): 5 Height (Inches): 4.00 Weight (Pounds): 116 Objective Debilitated AA woman non-verbal NCAT (+) trach coarse ronchi RR obese abd, (+) GJT no edema (+) contractured extremities Celio Vaughan MD Mar 22, 2019 17:48
--- NOTE | 2019-03-22 18:50 | NUR ---
NURSE NOTES: Patient daughter now at the bedside. Update given. Patient vital signs stable. Will continue to monitor.
--- NOTE | 2019-03-22 19:26 | NUR ---
HAND-OFF: Report given to JEANNINE Sykes. Patient vital signs stable at this time. Daughter at the bedside. Endorsed to monitor and follow up.
--- NOTE | 2019-03-22 19:42 | NUR ---
NURSE NOTES: PT'S DAUGHTER AT BED SIDE. PATIENT OPEN EYES, UNABLE TO EYE CONTACT, DID NOT FOLLOW COMMANDS, RESPIRATION REGULAR, ON TRACH, FIO2 28% T- PIECE, O2 SATURATION 100% NOTED, ABDOMEN SOFT, NO BM STATUS, G-J TUBE INTACT AND PATENT, G TUBE DRAINING GRAVITY, ONGOING J TUBE FEEDING, GLUCERNA 1.5 AT 50ML/HR, TOLERATED FEEDING, NO N/V NOTED, KEPT HOB 30 DEGREES AND ASPIRATION PRECAUTION, VOID WITH PURE WICK, YELLOW URINE OUTED, PICC LINE TO RIGHT UPPER ARM, INTACT AND PATENT, KEPT SZ AND FALL PRECAUTION, ON P200 BED, MADE LOWER BED POSITION, ON BED ALARM AND LOCKED, PROVIDED CALL LIGHT WITHIN REACH BUT UNABLE TO USE STATUS, WILL CONTINUE TO MONITOR.
[2019-03-22] MEDS: Dyna-Hex 2% Top Sol 2oz TOPIC SCH (19:50)
--- NOTE | 2019-03-22 21:14 | NUR ---
NURSE NOTES: NO FAMILY MEMBERS AT BEDSIDE. PATIENT ASLEEP STATUS, VSS, WILL CONTINUE PLAN OF CARE.
--- NOTE | 2019-03-22 23:14 | NUR ---
NURSE NOTES: PT'S FAMILY STAYED AT BEDSIDE. PATIENT ASLEEP STATUS, NO DISTRESS NOTED AT THIS TIME.
[2019-03-23] VITALS (24 sets, daily range): BP systolic 102–165; BP diastolic 46–108
--- NOTE | 2019-03-23 00:34 | NUR ---
NURSE NOTES: REPOSITIONED AND ORAL CARE WAS DONE, NO RESISTANCE TO CARE.
[2019-03-23] MEDS: Metoclopramide 10mg/2ml Inj IVP SCH ×4 (02:07→19:53)
--- NOTE | 2019-03-23 02:18 | NUR ---
NURSE NOTES: NO DISTRESS NOTED, REPOSITIONED.
[2019-03-23] MEDS: Acetylcysteine 20% Soln 4ml HHN SCH ×4 (02:55→14:57)
[2019-03-23] MEDS: Albuterol/Ipratropium 3ml neb HHN SCH ×6 (02:55→23:09)
--- NOTE | 2019-03-23 04:13 | NUR ---
NURSE NOTES: MORNING CARE AND ORAL CARE WAS DONE, NO BM STATUS.
--- NOTE | 2019-03-23 04:38 | NUR ---
NURSE NOTES: DR. VUONG MADE NEW ORDER, WILL CARRY OUT.
[2019-03-23 04:51] LABS: BASOPHILS % (AUTO) 0.6 % (0.0-2.0); EOSINOPHILS % (AUTO) 4.3 % (0.0-3.0); HEMATOCRIT 25.8 % (37.0-47.0); HEMOGLOBIN 8.3 G/DL (12.0-16.0); LYMPHOCYTES % (AUTO) 36.1 % (20.0-45.0); MEAN CORPUSCULAR VOLUME 87 FL (80-99); MONOCYTES % (AUTO) 7.2 % (1.0-10.0); NEUTROPHILS % (AUTO) 51.7 % (45.0-75.0); PLATELET COUNT 246 K/UL (150-450); RED BLOOD COUNT 2.99 M/UL (4.20-5.40); RED CELL DISTRIBUTION WIDTH 16.9 % (11.6-14.8); WHITE BLOOD COUNT 9.4 K/UL (4.8-10.8)
[2019-03-23 05:02] LABS: ALANINE AMINOTRANSFERASE 40 U/L (12-78); ALBUMIN 2.5 G/DL (3.4-5.0); ALBUMIN/GLOBULIN RATIO 0.5 (1.0-2.7); ALKALINE PHOSPHATASE 194 U/L (46-116); ANION GAP 2 mmol/L (5-15); ASPARTATE AMINO TRANSFERASE 33 U/L (15-37); BILIRUBIN,TOTAL 0.2 MG/DL (0.2-1.0); BLOOD UREA NITROGEN 24 mg/dL (7-18); CALCIUM 8.5 MG/DL (8.5-10.1); CARBON DIOXIDE 33 MMOL/L (21-32); CHLORIDE 104 MMOL/L (98-107); CREATININE 1.1 MG/DL (0.55-1.30); POTASSIUM 4.7 MMOL/L (3.5-5.1); SODIUM 139 MMOL/L (136-145)
--- NOTE | 2019-03-23 05:15 | Progress Note ---
DATE: 03/22/2019 CARDIOLOGY AND INTERNAL MEDICINE PROGRESS NOTE SUBJECTIVE: The patient is tolerating feedings by new GJ tube. No nausea or vomiting. She remains at baseline, unresponsive state. PHYSICAL EXAMINATION: VITAL SIGNS: Blood pressure 154/61, pulse 86, respiratory rate 26, afebrile, T-max 99.1. LUNGS: Bilateral breath sounds, on T-tube. LUNGS: Few rhonchi. HEART: Regular rhythm and rate. Normal S1 and S2. ABDOMEN: Soft. GJ tube intact. EXTREMITIES: Trace dependent edema. IMPRESSION: . PLAN: 1. Continue current therapy. 2. Discharge to subacute facility when bed available. Bg Hagen M.D. DR: Stephanie JOB#: [id number] CC:
--- NOTE | 2019-03-23 06:23 | NUR ---
NURSE NOTES: NO ACUTE DISTRESS NOTED AT THIS SHIFT.
--- NOTE | 2019-03-23 07:10 | NUR ---
HAND-OFF: Report given to Eddie BALLARD RN.
--- NOTE | 2019-03-23 07:11 | NUR ---
NURSE NOTES: Received patient from JEANNINE Sykes. Patient opens eyes but does not track or follow command. Patient trach to T-piece with FiO2 28%. Patient tolerating with SpO2 100% and RR 20. Patient showing no sign of acute distress. patient continues to have copious tracheal and oral secretions. Secretions are thick, yellow/white, and copious. Patient suctioned and oral care performed at this time. Patient has gastrostomy/jejunostomy tube that is patent and asymptomatic at this time. gastrostomy tube is draining to gravity. Jejunostomy tube is patent and running tube feeding of Glucerna 1.5 at 50mL/hr at this time. Will flush J tube every 6 hours. Next flush due at 0900. will follow up. Patient has purewick that is patent, asymptomatic, and draining straw yellow urine at this time. Patient has sacral heeled wounds and left hand necrotic wound. Patient has right upper arm PICC line that is patent, asymptomatic, and saline locked at this time. patient repositioned at this time. Bed in low position with bed alarm on and call light in reach at this time.
[2019-03-23] MEDS: levETIRAcetam 500mg/5ml Liquid GT SCH ×2 (08:54→20:41)
[2019-03-23] MEDS: Pantoprazole Inj IVP SCH ×2 (08:54→20:40)
[2019-03-23] MEDS: Heparin 5000 units/ml inj SUBQ SCH ×2 (09:06→20:41)
[2019-03-23] MEDS: Bacitracin Oint 15gm Tube TOPIC SCH ×3 (09:07→18:13)
--- NOTE | 2019-03-23 09:21 | NUR ---
CASE MANAGEMENT:REVIEW 03/23/19 SI: SEPSIS. PNA. SACRAL DECUB. POD #3.....S/P G TO GJ TUBE 98.4 84 23 165/75 100% ON T-PIECE 6L @ 28% H/H-8.3/25.8 CO2+33 BUN_24 IS: HEPARIN SQ Q12 KEPPRA GT Q12 K-DUR GT QD IV PROTONIX Q12 DUONEB HHN RTC MUCOMYST HHN Q4HRS RTC ATROPINE SL TID : ICU STATUS PLAN: TUBE FEEDING @ 50/HR
--- NOTE | 2019-03-23 09:28 | NUR ---
DISCHARGE PLANNING READY FOR DISCHARGE ORDER NOTED FAXED CLINICALS TO [facility] T: [phone] F: [phone] [facility] T: [phone] F: [phone] [facility] T: [phone] F: [phone] [facility] T: [phone] F: EF: [phone] WAITING FOR BED AVAILABLITY Addendum: 03/23/19 at 1548 by JODI TONY LVN LVN SPOKE WITH TEA AT [facility] ~ NO BEDS AVAILABLE SPOKE WITH PIERCE @ [facility] ~ THEY DECLINED D/T NO AVAILABLE ISOLATION BEDS THEY SAID THEY WOULD STILL ISOLATE EVEN IF [facility] STILL WAITING TO HEAR BACK FROM [facility] ~ STANLEY HAD TO LEAVE EARLY FOR THE DAY
--- NOTE | 2019-03-23 10:00 | NUR ---
NURSE NOTES: Patient vital signs stable at this time. Patient suctioned orally and tracheal at this time. patient continues to have copious oral and tracheal secretions. Will continue to monitor. Patient repositioned.
--- NOTE | 2019-03-23 11:16 | Infectious Diseases Prog Note ---
Assessment/Plan Assessment/Plan A 1. Providencia & Klebsiella pneumonia treated 2. respiratory failure 3. hypertension 4. CVA 5. dementia 6. sacral decubitus ulcer 7. rectal VRE colonization 8. Anemia 9. Proteus UTI 10. Acute renal failure 11. Leukocytosis resolved P 1.Observe off antibiotic 2. Frequent suctioning 3. Remove PICC line before discharge Subjective ROS Limited/Unobtainable: Yes Constitutional: Denies: fever Allergies: Coded Allergies: CODEINE (Verified Allergy, Unknown, HIVES, 09/15/09) Objective Vital Signs Last 24 Hour Vital Signs Date Time Temp Pulse Resp B/P (MAP) Pulse Ox O2 Delivery O2 Flow Rate FiO2 03/23/19 10:00 85 23 138/59 (85) 97 03/23/19 09:00 98 20 153/63 (93) 95 03/23/19 08:00 6.0 28 03/23/19 08:00 T-piece 6.0 T-piece 6.0 03/23/19 08:00 98.6 86 21 139/61 (87) 98 03/23/19 08:00 82 03/23/19 07:57 81 21 99 T-Piece 5.0 28 87 22 100 03/23/19 07:22 100 T-Piece 5.0 28 03/23/19 07:00 81 22 141/66 (91) 100 03/23/19 06:00 82 22 144/61 (88) 99 03/23/19 05:00 80 21 146/65 (92) 100 03/23/19 04:00 T-piece 6.0 T-piece 6.0 03/23/19 04:00 6.0 28 03/23/19 04:00 98.4 84 23 165/75 (105) 100 03/23/19 03:34 74 03/23/19 03:00 73 22 106/57 (73) 100 03/23/19 02:55 73 22 100 T-Piece 5.0 28 74 21 100 03/23/19 02:00 73 21 123/60 (81) 100 03/23/19 01:16 100 T-Piece 5.0 28 03/23/19 01:00 80 20 118/49 (72) 99 03/23/19 00:07 81 03/23/19 00:00 98.4 97 20 148/101 (117) 100 03/23/19 00:00 6.0 28 03/23/19 00:00 T-piece 6.0 T-piece 6.0 03/22/19 23:08 77 24 100 T-Piece 5.0 28 74 25 100 03/22/19 23:00 77 24 147/62 (90) 100 03/22/19 22:00 86 21 160/75 (103) 100 03/22/19 21:00 82 24 140/60 (86) 100 03/22/19 20:00 6.0 28 03/22/19 20:00 98.4 93 22 158/82 (107) 100 03/22/19 20:00 T-piece 6.0 T-piece 6.0 03/22/19 19:43 100 T-Piece 5.0 28 03/22/19 19:40 98 21 100 T-Piece 5.0 28 96 25 100 03/22/19 19:32 82 03/22/19 19:00 81 22 140/57 (84) 100 03/22/19 18:00 86 23 138/50 (79) 100 03/22/19 17:00 95 27 152/54 (86) 94 03/22/19 16:00 98.9 86 24 165/72 (103) 100 03/22/19 16:00 6.0 28 03/22/19 16:00 92 03/22/19 16:00 T-piece 6.0 T-piece 6.0 03/22/19 15:58 87 18 100 T-Piece 5.0 28 88 22 99 03/22/19 15:00 86 26 154/61 (92) 100 03/22/19 14:00 93 27 138/63 (88) 98 03/22/19 13:07 99 T-Piece 5.0 28 03/22/19 13:00 97 26 115/47 (69) 98 03/22/19 12:00 6.0 28 03/22/19 12:00 T-piece 6.0 T-piece 6.0 03/22/19 12:00 99.1 98 27 143/57 (85) 97 03/22/19 12:00 95 Height (Feet): 5 Height (Inches): 4.00 Weight (Pounds): 112 General Appearance: no acute distress HEENT: status post trach Respiratory/Chest: lungs clear, other - on T bar Cardiovascular: normal rate Abdomen: soft, non tender, other - GT feeding Extremities: no edema Neurologic/Psychiatric: unresponsiveness, aphasia Laboratory Tests Test 03/23/19 04:00 White Blood Count 9.4 K/UL (4.8-10.8) Red Blood Count 2.99 M/UL (4.20-5.40) L Hemoglobin 8.3 G/DL (12.0-16.0) L Hematocrit 25.8 % (37.0-47.0) L Mean Corpuscular Volume 87 FL (80-99) Mean Corpuscular Hemoglobin 27.9 PG (27.0-31.0) Mean Corpuscular Hemoglobin Concent 32.2 G/DL (32.0-36.0) Red Cell Distribution Width 16.9 % (11.6-14.8) H Platelet Count 246 K/UL (150-450) Mean Platelet Volume 6.0 FL (6.5-10.1) L Neutrophils (%) (Auto) 51.7 % (45.0-75.0) Lymphocytes (%) (Auto) 36.1 % (20.0-45.0) Monocytes (%) (Auto) 7.2 % (1.0-10.0) Eosinophils (%) (Auto) 4.3 % (0.0-3.0) H Basophils (%) (Auto) 0.6 % (0.0-2.0) Sodium Level 139 MMOL/L (136-145) Potassium Level 4.7 MMOL/L (3.5-5.1) Chloride Level 104 MMOL/L (98-107) Carbon Dioxide Level 33 MMOL/L (21-32) H Anion Gap 2 mmol/L (5-15) L Blood Urea Nitrogen 24 mg/dL (7-18) H Creatinine 1.1 MG/DL (0.55-1.30) Estimat Glomerular Filtration Rate mL/min (>60) Glucose Level 116 MG/DL (74-106) H Calcium Level 8.5 MG/DL (8.5-10.1) Total Bilirubin 0.2 MG/DL (0.2-1.0) Aspartate Amino Transf (AST/SGOT) 33 U/L (15-37) Alanine Aminotransferase (ALT/SGPT) 40 U/L (12-78) Alkaline Phosphatase 194 U/L (46-116) H Pro-B-Type Natriuretic Peptide 223 pg/mL (0-125) H Total Protein 7.8 G/DL (6.4-8.2) Albumin 2.5 G/DL (3.4-5.0) L Globulin 5.3 g/dL Albumin/Globulin Ratio 0.5 (1.0-2.7) L Current Medications Medications (Trade) Dose Ordered Sig/Maicol Route PRN Reason Start Time Stop Time Status Last Admin Dose Admin Acetylcysteine (Mucomyst) 200 mg Q4HRT [facility] 03/18/19 19:00 04/17/19 18:59 03/23/19 07:21 Albuterol/ Ipratropium (Albuterol/ Ipratropium) 3 ml Q4HRT [facility] 03/20/19 11:00 03/25/19 10:59 03/23/19 11:12 Atropine Sulfate (Atropine Opth Adriana) 2 drop TID SL 03/07/19 09:00 04/06/19 08:59 03/23/19 09:07 Bacitracin (Bacitracin 15gm tube) 1 applic THREE TIMES A DAY TOPIC 02/28/19 18:30 03/30/19 18:29 03/23/19 09:07 Chlorhexidine Gluconate (Cesilia-Hex 2%) 1 applic DAILY@1999 TOPIC 03/12/19 20:00 04/11/19 19:59 03/22/19 19:50 Heparin Sodium (Porcine) (Heparin 5000 units/ml) 5,000 units EVERY 12 HOURS SUBQ 03/22/19 21:00 03/31/19 23:14 03/23/19 09:06 Hydralazine HCl (Apresoline) 10 mg Q4H PRN IV For High Blood Pressure 03/12/19 09:00 04/11/19 08:59 03/18/19 18:17 Levetiracetam (Keppra) 750 mg Q12HR GT 03/22/19 21:00 03/31/19 23:29 03/23/19 08:54 Metoclopramide HCl (Reglan) 5 mg Q6H IVP 03/10/19 02:00 03/24/19 01:59 03/23/19 08:54 Ondansetron HCl (Zofran) 4 mg Q4H PRN IVP Nausea & Vomiting 03/18/19 18:15 04/17/19 18:14 03/21/19 08:27 Pantoprazole (Protonix) 40 mg EVERY 12 HOURS IVP 03/20/19 21:00 04/19/19 20:59 03/23/19 08:54 Potassium Chloride (K-Dur) 20 meq DAILY GT 03/21/19 09:00 04/11/19 08:59 03/21/19 08:36 Chauncey Liriano MD Mar 23, 2019 11:16
--- NOTE | 2019-03-23 12:00 | NUR ---
NURSE NOTES: Patient opens eyes but does not track or follow command. Patient remains trach to T-piece with FiO2 28%. Patient tolerating with SpO2 100% and RR 20. Patient showing no sign of acute distress. patient continues to have copious tracheal and oral secretions. Secretions are thick, yellow/white, and copious. Patient suctioned and oral care performed at this time. Gastrostomy/jejunostomy tube remain patent and asymptomatic at this time. gastrostomy tube draining by gravity. Jejunostomy tube remain patent and running tube feeding of Glucerna 1.5 at 50mL/hr at this time with no residual. Will continue to monitor. Purewick remains patent, asymptomatic, and draining straw yellow urine at this time. Right upper arm PICC line remains patent, asymptomatic, and saline locked at this time. patient repositioned at this time. Bed in low position with bed alarm on and call light in reach at this time.
--- NOTE | 2019-03-23 12:49 | Nephrology Progress Note ---
Assessment/Plan Status: stable, progressing Assessment/Plan: A/P 1) Acute renal failure- resolved - Cr stable 2) Respiratory failure - Trach, chronic 3) Low Mag- Low k , Low Na- resolved - replace lytes prn basis 4) UTI / Sepsis - per ID mgmt Subjective Date patient seen: Mar 23, 2019 Time patient seen: 12:48 ROS Limited/Unobtainable: Yes Allergies: Coded Allergies: CODEINE (Verified Allergy, Unknown, HIVES, 09/15/09) Subjective Patient trached, no clinical change Objective Last 24 Hour Vital Signs Date Time Temp Pulse Resp B/P (MAP) Pulse Ox O2 Delivery O2 Flow Rate FiO2 03/23/19 11:31 85 55 99 T-Piece 5.0 28 84 22 100 03/23/19 11:00 88 22 110/50 (70) 98 03/23/19 10:00 85 23 138/59 (85) 97 03/23/19 09:00 98 20 153/63 (93) 95 03/23/19 08:00 6.0 28 03/23/19 08:00 T-piece 6.0 T-piece 6.0 03/23/19 08:00 98.6 86 21 139/61 (87) 98 03/23/19 08:00 82 03/23/19 07:57 81 21 99 T-Piece 5.0 28 87 22 100 03/23/19 07:22 100 T-Piece 5.0 28 03/23/19 07:00 81 22 141/66 (91) 100 03/23/19 06:00 82 22 144/61 (88) 99 03/23/19 05:00 80 21 146/65 (92) 100 03/23/19 04:00 T-piece 6.0 T-piece 6.0 03/23/19 04:00 6.0 28 03/23/19 04:00 98.4 84 23 165/75 (105) 100 03/23/19 03:34 74 03/23/19 03:00 73 22 106/57 (73) 100 03/23/19 02:55 73 22 100 T-Piece 5.0 28 74 21 100 03/23/19 02:00 73 21 123/60 (81) 100 03/23/19 01:16 100 T-Piece 5.0 28 03/23/19 01:00 80 20 118/49 (72) 99 03/23/19 00:07 81 03/23/19 00:00 98.4 97 20 148/101 (117) 100 03/23/19 00:00 6.0 28 03/23/19 00:00 T-piece 6.0 T-piece 6.0 03/22/19 23:08 77 24 100 T-Piece 5.0 28 74 25 100 03/22/19 23:00 77 24 147/62 (90) 100 03/22/19 22:00 86 21 160/75 (103) 100 03/22/19 21:00 82 24 140/60 (86) 100 03/22/19 20:00 6.0 28 03/22/19 20:00 98.4 93 22 158/82 (107) 100 03/22/19 20:00 T-piece 6.0 T-piece 6.0 03/22/19 19:43 100 T-Piece 5.0 28 03/22/19 19:40 98 21 100 T-Piece 5.0 28 96 25 100 03/22/19 19:32 82 03/22/19 19:00 81 22 140/57 (84) 100 03/22/19 18:00 86 23 138/50 (79) 100 03/22/19 17:00 95 27 152/54 (86) 94 03/22/19 16:00 98.9 86 24 165/72 (103) 100 03/22/19 16:00 6.0 28 03/22/19 16:00 92 03/22/19 16:00 T-piece 6.0 T-piece 6.0 03/22/19 15:58 87 18 100 T-Piece 5.0 28 88 22 99 03/22/19 15:00 86 26 154/61 (92) 100 03/22/19 14:00 93 27 138/63 (88) 98 03/22/19 13:07 99 T-Piece 5.0 28 03/22/19 13:00 97 26 115/47 (69) 98 Intake and Output 03/22/19 03/23/19 19:00 07:00 Intake Total 720 ml 690 ml Output Total 220 ml 360 ml Balance 500 ml 330 ml Free Water 60 ml Tube Feeding 600 ml 550 ml Other 120 ml 80 ml Output Urine Total 220 ml 330 ml Gastric Drainage Total 30 ml # Bowel Movements 1 Laboratory Tests 03/23/19 04:00: White Blood Count 9.4, Red Blood Count 2.99L, Hemoglobin 8.3L, Hematocrit 25.8L , Mean Corpuscular Volume 87, Mean Corpuscular Hemoglobin 27.9, Mean Corpuscular Hemoglobin Concent 32.2, Red Cell Distribution Width 16.9H, Platelet Count 246, Mean Platelet Volume 6.0L, Neutrophils (%) (Auto) 51.7, Lymphocytes (%) (Auto) 36.1, Monocytes (%) (Auto) 7.2, Eosinophils (%) (Auto) 4.3H, Basophils (%) (Auto) 0.6, Sodium Level 139, Potassium Level 4.7, Chloride Level 104, Carbon Dioxide Level 33H, Anion Gap 2L, Blood Urea Nitrogen 24H, Creatinine 1.1, Estimat Glomerular Filtration Rate , Glucose Level 116H, Calcium Level 8.5, Total Bilirubin 0.2, Aspartate Amino Transf (AST/SGOT) 33, Alanine Aminotransferase (ALT/SGPT) 40, Alkaline Phosphatase 194H, Pro-B-Type Natriuretic Peptide 223H, Total Protein 7.8, Albumin 2.5L, Globulin 5.3, Albumin /Globulin Ratio 0.5L Height (Feet): 5 Height (Inches): 4.00 Weight (Pounds): 112 General Appearance: no apparent distress, alert EENT: normal ENT inspection Neck: normal alignment, supple Cardiovascular: normal rate, regular rhythm Respiratory/Chest: rhonchi - bilaterally Abdomen: non tender, soft Edema: 1+ Arm (L), 1+ Arm (R), 1+ Leg (L), 1+ Leg (R), 1+ Pedal (L), 1+ Pedal ( R), 1+ Generalized Serafin Arteaga MD Mar 23, 2019 12:49
--- NOTE | 2019-03-23 14:00 | NUR ---
NURSE NOTES: Patient continues to have copious secretions. Patient showing no sign of acute distress. Vital signs stable. Bed in low position with bed alarm on and call light in reach at this time. Patient oral and tracheal suctioned. Will continue to monitor. Patient repositioned.
[2019-03-23] MEDS ORDERED: LORazepam Inj 2mg/ml 1ml IV PRN (15:15)
--- NOTE | 2019-03-23 18:00 | NUR ---
NURSE NOTES: Patient bed bath and repositioning done. Oral care performed. Tracheal and oral suctioning done. Bed in low position with bed alarm on and call light in reach. Will continue to monitor. VS stable.
--- NOTE | 2019-03-23 19:06 | Pulmonology Progress Note ---
Assessment/Plan Assessment/Plan Pulmonary Progress Note HPI This an 83-year-old female with history of tracheostomy, VDRF, feeding tube, admitted with Pneumonia, respiratory distress. Tolerating TC Past Medical History: VDRF, Trach, G tube, Hypertension, Cardiac disease, Dementia, Previous CVA, TIA, Seizure disorder, previous cancer Impression: Sepsis syndrome Pneumonia VDRF, Trach, G tube, Hypertension, Cardiac disease, Dementia, Previous CVA, Seizure disorder, Respiratory failure with hypoxia Anemia Sacral ulcer renal cyst Plan continue current AB TC as tolerated mucomyst and duoneb SNF meds as is Adjust oxygen as needed Monitor labs for change changes noted Patient is a DNR. No CPR. dc planning per family and primary impression, plan, and exam edited and reviewed in detail care discussed with RN Subjective Allergies: Coded Allergies: CODEINE (Verified Allergy, Unknown, HIVES, 09/15/09) Subjective on AC on mucomyst and duoneb noted congestion supportive care noted RT care reviewed overnight care reviewed Objective Vital Signs Noted Objective WDWN NAD contracted on vent reduced breath sounds bilaterally with scattered rhonchi same [id number] without MRG NABS nontender no HSM no CC minimal nonfocal nonverbal trach and gt reviewed and edited Laboratory Tests Noted Subjective ROS Limited/Unobtainable: No Allergies: Coded Allergies: CODEINE (Verified Allergy, Unknown, HIVES, 09/15/09) Objective Last 24 Hour Vital Signs Date Time Temp Pulse Resp B/P (MAP) Pulse Ox O2 Delivery O2 Flow Rate FiO2 03/23/19 18:00 93 18 107/60 (76) 99 03/23/19 17:00 98.7 77 22 133/55 (81) 99 03/23/19 16:00 83 23 135/60 (85) 99 03/23/19 16:00 78 03/23/19 15:00 81 20 129/67 (87) 100 03/23/19 14:57 81 19 100 T-Piece 5.0 28 83 21 100 03/23/19 14:00 80 22 102/50 (67) 98 03/23/19 13:00 82 22 121/55 (77) 97 03/23/19 12:52 97 T-Piece 5.0 28 03/23/19 12:00 98.7 104 19 121/55 (77) 95 03/23/19 12:00 T-piece 6.0 T-piece 6.0 03/23/19 12:00 6.0 28 03/23/19 12:00 81 03/23/19 11:31 85 22 99 T-Piece 5.0 28 84 22 100 03/23/19 11:00 88 22 110/50 (70) 98 03/23/19 10:00 85 23 138/59 (85) 97 03/23/19 09:00 98 20 153/63 (93) 95 03/23/19 08:00 6.0 28 03/23/19 08:00 T-piece 6.0 T-piece 6.0 03/23/19 08:00 98.6 86 21 139/61 (87) 98 03/23/19 08:00 82 03/23/19 07:57 81 21 99 T-Piece 5.0 28 87 22 100 03/23/19 07:22 100 T-Piece 5.0 28 03/23/19 07:00 81 22 141/66 (91) 100 03/23/19 06:00 82 22 144/61 (88) 99 03/23/19 05:00 80 21 146/65 (92) 100 03/23/19 04:00 T-piece 6.0 T-piece 6.0 03/23/19 04:00 6.0 28 03/23/19 04:00 98.4 84 23 165/75 (105) 100 03/23/19 03:34 74 03/23/19 03:00 73 22 106/57 (73) 100 03/23/19 02:55 73 22 100 T-Piece 5.0 28 74 21 100 03/23/19 02:00 73 21 123/60 (81) 100 03/23/19 01:16 100 T-Piece 5.0 28 03/23/19 01:00 80 20 118/49 (72) 99 03/23/19 00:07 81 03/23/19 00:00 98.4 97 20 148/101 (117) 100 03/23/19 00:00 6.0 28 03/23/19 00:00 T-piece 6.0 T-piece 6.0 03/22/19 23:08 77 24 100 T-Piece 5.0 28 74 25 100 03/22/19 23:00 77 24 147/62 (90) 100 03/22/19 22:00 86 21 160/75 (103) 100 03/22/19 21:00 82 24 140/60 (86) 100 03/22/19 20:00 6.0 28 03/22/19 20:00 98.4 93 22 158/82 (107) 100 03/22/19 20:00 T-piece 6.0 T-piece 6.0 03/22/19 19:43 100 T-Piece 5.0 28 03/22/19 19:40 98 21 100 T-Piece 5.0 28 96 25 100 03/22/19 19:32 82 Intake and Output 03/22/19 03/23/19 19:00 07:00 Intake Total 720 ml 690 ml Output Total 220 ml 360 ml Balance 500 ml 330 ml Free Water 60 ml Tube Feeding 600 ml 550 ml Other 120 ml 80 ml Output Urine Total 220 ml 330 ml Gastric Drainage Total 30 ml # Bowel Movements 1 Laboratory Tests 03/23/19 04:00: White Blood Count 9.4, Red Blood Count 2.99L, Hemoglobin 8.3L, Hematocrit 25.8L , Mean Corpuscular Volume 87, Mean Corpuscular Hemoglobin 27.9, Mean Corpuscular Hemoglobin Concent 32.2, Red Cell Distribution Width 16.9H, Platelet Count 246, Mean Platelet Volume 6.0L, Neutrophils (%) (Auto) 51.7, Lymphocytes (%) (Auto) 36.1, Monocytes (%) (Auto) 7.2, Eosinophils (%) (Auto) 4.3H, Basophils (%) (Auto) 0.6, Sodium Level 139, Potassium Level 4.7, Chloride Level 104, Carbon Dioxide Level 33H, Anion Gap 2L, Blood Urea Nitrogen 24H, Creatinine 1.1, Estimat Glomerular Filtration Rate , Glucose Level 116H, Calcium Level 8.5, Total Bilirubin 0.2, Aspartate Amino Transf (AST/SGOT) 33, Alanine Aminotransferase (ALT/SGPT) 40, Alkaline Phosphatase 194H, Pro-B-Type Natriuretic Peptide 223H, Total Protein 7.8, Albumin 2.5L, Globulin 5.3, Albumin /Globulin Ratio 0.5L Current Medications Medications (Trade) Dose Ordered Sig/Maicol Route PRN Reason Start Time Stop Time Status Last Admin Dose Admin Acetaminophen (Tylenol) 650 mg Q6H PRN GT Mild Pain/Temp > 100.5 03/23/19 15:15 04/22/19 15:14 Albuterol/ Ipratropium (Albuterol/ Ipratropium) 3 ml Q4HRT HHN 03/20/19 11:00 03/25/19 10:59 03/23/19 14:57 Atropine Sulfate (Atropine Opth Adriana) 2 drop TID SL 03/07/19 09:00 04/06/19 08:59 03/23/19 18:13 Bacitracin (Bacitracin 15gm tube) 1 applic THREE TIMES A DAY TOPIC 02/28/19 18:30 03/30/19 18:29 03/23/19 18:13 Chlorhexidine Gluconate (Cesilia-Hex 2%) 1 applic DAILY@1999 TOPIC 03/12/19 20:00 04/11/19 19:59 03/22/19 19:50 Heparin Sodium (Porcine) (Heparin 5000 units/ml) 5,000 units EVERY 12 HOURS SUBQ 03/22/19 21:00 03/31/19 23:14 03/23/19 09:06 Hydralazine HCl (Apresoline) 10 mg Q4H PRN IV For High Blood Pressure 03/12/19 09:00 04/11/19 08:59 03/18/19 18:17 Levetiracetam (Keppra) 750 mg Q12HR GT 03/22/19 21:00 03/31/19 23:29 03/23/19 08:54 Lorazepam (Ativan 2mg/ml 1ml) 0.5 mg Q2H PRN IV For Seizures 03/23/19 15:15 03/30/19 15:14 Metoclopramide HCl (Reglan) 5 mg Q6H IVP 03/10/19 02:00 03/24/19 01:59 03/23/19 14:44 Ondansetron HCl (Zofran) 4 mg Q4H PRN IVP Nausea & Vomiting 03/18/19 18:15 04/17/19 18:14 03/21/19 08:27 Pantoprazole (Protonix) 40 mg EVERY 12 HOURS IVP 03/20/19 21:00 04/19/19 20:59 03/23/19 08:54 Potassium Chloride (K-Dur) 20 meq DAILY GT 03/21/19 09:00 1/11/20 08:59 03/21/19 08:36 Bg Moffett MD Mar 23, 2019 19:06
[2019-03-23] MEDS: Acetaminophen 650mg/20.3ml GT PRN (19:09)
--- NOTE | 2019-03-23 19:20 | NUR ---
HAND-OFF: Report given to JEANNINE Sykes. Vital signs stable. Endorsed to follow up.
--- NOTE | 2019-03-23 19:21 | NUR ---
RESPIRATORY NOTE: Received pt on 28% Cool Aerosol via T-Piece. Pt is trach-dependent w/ a cuffed, Shiley 6 XLT tube. Cuff is currently deflated. Pt asleep/flat effect, responds to stimuli. B/S flory. rhonchi, sxn small to moderate amounts of thin/frothy, clear-white secretions. Ventilator on stand by at bedside, plugged into red outlet. Ambubag also at bedside. Pt resting comfortably, in no apparent distress at this time. Will continue to monitor pt.
--- NOTE | 2019-03-23 19:50 | NUR ---
NURSE NOTES: PATIENT OPEN EYES, UNABLE TO EYE CONTACT, DID NOT FOLLOW COMMANDS, RESPIRATION REGULAR, ON TRACH, FIO2 28% T- PIECE, O2 SATURATION 100% NOTED, ABDOMEN SOFT, NO BM STATUS, G-J TUBE INTACT AND PATENT, G TUBE DRAINING GRAVITY, ONGOING J TUBE FEEDING, GLUCERNA 1.5 AT 50ML/HR, TOLERATED FEEDING, NO N/V NOTED, KEPT HOB 30 DEGREES AND ASPIRATION PRECAUTION, VOID WITH PURE WICK, YELLOW URINE OUTED, PICC LINE TO RIGHT UPPER ARM, INTACT AND PATENT, KEPT SZ AND FALL PRECAUTION, ON P200 BED, MADE LOWER BED POSITION, ON BED ALARM AND LOCKED, PROVIDED CALL LIGHT WITHIN REACH BUT UNABLE TO USE STATUS, WILL CONTINUE TO MONITOR.
[2019-03-23] MEDS: Dyna-Hex 2% Top Sol 2oz TOPIC SCH (19:53)
--- NOTE | 2019-03-23 20:59 | General Progress Note ---
Assessment/Plan Problem List: (1) Seizure ICD Codes: R56.9 - Unspecified convulsions SNOMED: 92660637 (2) Anemia ICD Codes: D64.9 - Anemia, unspecified SNOMED: 786111829 Qualifiers: Qualified Codes: D64.9 - Anemia, unspecified (3) Sepsis ICD Codes: A41.9 - Sepsis, unspecified organism SNOMED: 69467698, 248649446 Qualifiers: Qualified Codes: A41.9 - Sepsis, unspecified organism (4) Respiratory failure with hypoxia ICD Codes: J96.91 - Respiratory failure, unspecified with hypoxia SNOMED: 60338211067594945 Qualifiers: Qualified Codes: J96.21 - Acute and chronic respiratory failure with hypoxia (5) HCAP (healthcare-associated pneumonia) ICD Codes: J18.9 - Pneumonia, unspecified organism SNOMED: 802404148, 329609991 (6) Sacral decubitus ulcer ICD Codes: L89.159 - Pressure ulcer of sacral region, unspecified stage SNOMED: 956688909 (7) HTN (hypertension) ICD Codes: I10 - Essential (primary) hypertension SNOMED: 20955170 (8) Chronic vegetative state ICD Codes: R40.3 - Persistent vegetative state SNOMED: 55022222 (9) Chronic respiratory failure ICD Codes: J96.10 - Chronic respiratory failure, unspecified whether with hypoxia or hypercapnia SNOMED: 73064889 (10) Limited mobility ICD Codes: Z74.09 - Other reduced mobility SNOMED: 9240192 Status: stable, progressing Assessment/Plan: vent as needed resp rx suctioning j tube feeds skin care sz rx monitor h/h Subjective ROS Limited/Unobtainable: Yes Constitutional: Reports: malaise, weakness HEENT: Reports: no symptoms Cardiovascular: Reports: no symptoms Respiratory: Reports: cough, shortness of breath, sputum Gastrointestinal/Abdominal: Reports: difficulty swallowing Genitourinary: Reports: no symptoms Neurologic/Psychiatric: Reports: pre-existing deficit, seizure Endocrine: Reports: no symptoms Hematologic/Lymphatic: Reports: anemia Allergies: Coded Allergies: CODEINE (Verified Allergy, Unknown, HIVES, 09/15/09) All Systems: reviewed and negative except above Subjective s/p j tube placement. tolerating feeds so far. no fevers. no vomiting. Objective Last 24 Hour Vital Signs Date Time Temp Pulse Resp B/P (MAP) Pulse Ox O2 Delivery O2 Flow Rate FiO2 03/23/19 20:00 98.7 103 19 163/77 (105) 97 03/23/19 19:26 80 22 100 T-Piece 5.0 28 03/23/19 19:16 84 24 100 T-Piece 5.0 28 03/23/19 19:16 100 T-Piece 5.0 28 03/23/19 19:00 94 19 144/108 (120) 100 03/23/19 18:00 93 18 107/60 (76) 99 03/23/19 17:00 98.7 77 22 133/55 (81) 99 03/23/19 16:00 T-piece 6.0 T-piece 6.0 03/23/19 16:00 83 23 135/60 (85) 99 03/23/19 16:00 6.0 28 03/23/19 16:00 78 03/23/19 15:00 81 20 129/67 (87) 100 03/23/19 14:57 81 19 100 T-Piece 5.0 28 83 21 100 03/23/19 14:00 80 22 102/50 (67) 98 03/23/19 13:00 82 22 121/55 (77) 97 03/23/19 12:52 97 T-Piece 5.0 28 03/23/19 12:00 98.7 104 19 121/55 (77) 95 03/23/19 12:00 T-piece 6.0 T-piece 6.0 03/23/19 12:00 6.0 28 03/23/19 12:00 81 03/23/19 11:31 85 22 99 T-Piece 5.0 28 84 22 100 03/23/19 11:00 88 22 110/50 (70) 98 03/23/19 10:00 85 23 138/59 (85) 97 03/23/19 09:00 98 20 153/63 (93) 95 03/23/19 08:00 6.0 28 03/23/19 08:00 T-piece 6.0 T-piece 6.0 03/23/19 08:00 98.6 86 21 139/61 (87) 98 03/23/19 08:00 82 03/23/19 07:57 81 21 99 T-Piece 5.0 28 87 22 100 03/23/19 07:22 100 T-Piece 5.0 28 03/23/19 07:00 81 22 141/66 (91) 100 03/23/19 06:00 82 22 144/61 (88) 99 03/23/19 05:00 80 21 146/65 (92) 100 03/23/19 04:00 T-piece 6.0 T-piece 6.0 03/23/19 04:00 6.0 28 03/23/19 04:00 98.4 84 23 165/75 (105) 100 03/23/19 03:34 74 03/23/19 03:00 73 22 106/57 (73) 100 03/23/19 02:55 73 22 100 T-Piece 5.0 28 74 21 100 03/23/19 02:00 73 21 123/60 (81) 100 03/23/19 01:16 100 T-Piece 5.0 28 03/23/19 01:00 80 20 118/49 (72) 99 03/23/19 00:07 81 03/23/19 00:00 98.4 97 20 148/101 (117) 100 03/23/19 00:00 6.0 28 03/23/19 00:00 T-piece 6.0 T-piece 6.0 03/22/19 23:08 77 24 100 T-Piece 5.0 28 74 25 100 03/22/19 23:00 77 24 147/62 (90) 100 03/22/19 22:00 86 21 160/75 (103) 100 03/22/19 21:00 82 24 140/60 (86) 100 Intake and Output 03/22/19 03/23/19 19:00 07:00 Intake Total 720 ml 690 ml Output Total 220 ml 360 ml Balance 500 ml 330 ml Free Water 60 ml Tube Feeding 600 ml 550 ml Other 120 ml 80 ml Output Urine Total 220 ml 330 ml Gastric Drainage Total 30 ml # Bowel Movements 1 Laboratory Tests 03/23/19 04:00: White Blood Count 9.4, Red Blood Count 2.99L, Hemoglobin 8.3L, Hematocrit 25.8L , Mean Corpuscular Volume 87, Mean Corpuscular Hemoglobin 27.9, Mean Corpuscular Hemoglobin Concent 32.2, Red Cell Distribution Width 16.9H, Platelet Count 246, Mean Platelet Volume 6.0L, Neutrophils (%) (Auto) 51.7, Lymphocytes (%) (Auto) 36.1, Monocytes (%) (Auto) 7.2, Eosinophils (%) (Auto) 4.3H, Basophils (%) (Auto) 0.6, Sodium Level 139, Potassium Level 4.7, Chloride Level 104, Carbon Dioxide Level 33H, Anion Gap 2L, Blood Urea Nitrogen 24H, Creatinine 1.1, Estimat Glomerular Filtration Rate , Glucose Level 116H, Calcium Level 8.5, Total Bilirubin 0.2, Aspartate Amino Transf (AST/SGOT) 33, Alanine Aminotransferase (ALT/SGPT) 40, Alkaline Phosphatase 194H, Pro-B-Type Natriuretic Peptide 223H, Total Protein 7.8, Albumin 2.5L, Globulin 5.3, Albumin /Globulin Ratio 0.5L Height (Feet): 5 Height (Inches): 4.00 Weight (Pounds): 112 Objective General Appearance: WD/WN, confused. on trach collar Neck: supple Cardiovascular: normal rate, regular rhythm Respiratory/Chest: chest wall non-tender, rhonchi - bilaterally(minimal) Abdomen: normal bowel sounds, non tender, soft, no organomegaly Edema: no edema noted Arm (L), no edema noted Arm (R), no edema noted Leg (L), no edema noted Leg (R), no edema noted Pedal (L), no edema noted Pedal (R), no edema noted Generalized Neurologic: disoriented, unresponsive, aphasia Irvin Beltrán MD Mar 23, 2019 20:59
--- NOTE | 2019-03-23 21:07 | General Progress Note ---
Assessment/Plan Status: stable, progressing Assessment/Plan: Assessment - N/V - resolved with G --> J conversion - now tolerating TF at goal - suction gently - Elevated Alk phos / LFT - CT negative - abd U/S negative - check hepatitis serologies - negative - Anemia with OB (-) stools - Resp failure, s/p Trach - dysphagia, s/p PEG --> s/p GT change--> GJ tube - OBS, vegetative unresponsive state, bedbound state, contracted extremities, - minor GT tract inflammation / infection - treat locally - poor Prognosis Recommendations - laxative PRN - antibiotic ointment to GJT site PRN - aspiration precautions - elevate HOB - continue TF Subjective Allergies: Coded Allergies: CODEINE (Verified Allergy, Unknown, HIVES, 09/15/09) Subjective seen in am tolerating TF now x 3 days, with GJ set up d/w RN Objective Last 24 Hour Vital Signs Date Time Temp Pulse Resp B/P (MAP) Pulse Ox O2 Delivery O2 Flow Rate FiO2 03/23/19 20:00 98.7 103 19 163/77 (105) 97 03/23/19 19:26 80 22 100 T-Piece 5.0 28 03/23/19 19:16 84 24 100 T-Piece 5.0 28 03/23/19 19:16 100 T-Piece 5.0 28 03/23/19 19:00 94 19 144/108 (120) 100 03/23/19 18:00 93 18 107/60 (76) 99 03/23/19 17:00 98.7 77 22 133/55 (81) 99 03/23/19 16:00 T-piece 6.0 T-piece 6.0 03/23/19 16:00 83 23 135/60 (85) 99 03/23/19 16:00 6.0 28 03/23/19 16:00 78 03/23/19 15:00 81 20 129/67 (87) 100 03/23/19 14:57 81 19 100 T-Piece 5.0 28 83 21 100 03/23/19 14:00 80 22 102/50 (67) 98 03/23/19 13:00 82 22 121/55 (77) 97 03/23/19 12:52 97 T-Piece 5.0 28 03/23/19 12:00 98.7 104 19 121/55 (77) 95 03/23/19 12:00 T-piece 6.0 T-piece 6.0 03/23/19 12:00 6.0 28 03/23/19 12:00 81 03/23/19 11:31 85 22 99 T-Piece 5.0 28 84 22 100 03/23/19 11:00 88 22 110/50 (70) 98 03/23/19 10:00 85 23 138/59 (85) 97 03/23/19 09:00 98 20 153/63 (93) 95 03/23/19 08:00 6.0 28 03/23/19 08:00 T-piece 6.0 T-piece 6.0 03/23/19 08:00 98.6 86 21 139/61 (87) 98 03/23/19 08:00 82 03/23/19 07:57 81 21 99 T-Piece 5.0 28 87 22 100 03/23/19 07:22 100 T-Piece 5.0 28 03/23/19 07:00 81 22 141/66 (91) 100 03/23/19 06:00 82 22 144/61 (88) 99 03/23/19 05:00 80 21 146/65 (92) 100 03/23/19 04:00 T-piece 6.0 T-piece 6.0 03/23/19 04:00 6.0 28 03/23/19 04:00 98.4 84 23 165/75 (105) 100 03/23/19 03:34 74 03/23/19 03:00 73 22 106/57 (73) 100 03/23/19 02:55 73 22 100 T-Piece 5.0 28 74 21 100 03/23/19 02:00 73 21 123/60 (81) 100 03/23/19 01:16 100 T-Piece 5.0 28 03/23/19 01:00 80 20 118/49 (72) 99 03/23/19 00:07 81 03/23/19 00:00 98.4 97 20 148/101 (117) 100 03/23/19 00:00 6.0 28 03/23/19 00:00 T-piece 6.0 T-piece 6.0 03/22/19 23:08 77 24 100 T-Piece 5.0 28 74 25 100 03/22/19 23:00 77 24 147/62 (90) 100 03/22/19 22:00 86 21 160/75 (103) 100 Intake and Output 03/22/19 03/23/19 18:59 06:59 Intake Total 720 ml 690 ml Output Total 250 ml 330 ml Balance 470 ml 360 ml Free Water 60 ml Tube Feeding 600 ml 550 ml Other 120 ml 80 ml Output Urine Total 250 ml 300 ml Gastric Drainage Total 30 ml # Bowel Movements 1 Laboratory Tests 03/23/19 04:00: White Blood Count 9.4, Red Blood Count 2.99L, Hemoglobin 8.3L, Hematocrit 25.8L , Mean Corpuscular Volume 87, Mean Corpuscular Hemoglobin 27.9, Mean Corpuscular Hemoglobin Concent 32.2, Red Cell Distribution Width 16.9H, Platelet Count 246, Mean Platelet Volume 6.0L, Neutrophils (%) (Auto) 51.7, Lymphocytes (%) (Auto) 36.1, Monocytes (%) (Auto) 7.2, Eosinophils (%) (Auto) 4.3H, Basophils (%) (Auto) 0.6, Sodium Level 139, Potassium Level 4.7, Chloride Level 104, Carbon Dioxide Level 33H, Anion Gap 2L, Blood Urea Nitrogen 24H, Creatinine 1.1, Estimat Glomerular Filtration Rate , Glucose Level 116H, Calcium Level 8.5, Total Bilirubin 0.2, Aspartate Amino Transf (AST/SGOT) 33, Alanine Aminotransferase (ALT/SGPT) 40, Alkaline Phosphatase 194H, Pro-B-Type Natriuretic Peptide 223H, Total Protein 7.8, Albumin 2.5L, Globulin 5.3, Albumin /Globulin Ratio 0.5L Height (Feet): 5 Height (Inches): 4.00 Weight (Pounds): 112 Objective Debilitated AA woman non-verbal NCAT (+) trach coarse ronchi RR obese abd, (+) GJT no edema (+) contractured extremities Celio Vaughan MD Mar 23, 2019 21:07
--- NOTE | 2019-03-23 21:28 | Surgery Progress Note ---
Surgery Progress Note Subjective Additional Comments no acute events Objective Last 24 Hour Vital Signs Date Time Temp Pulse Resp B/P (MAP) Pulse Ox O2 Delivery O2 Flow Rate FiO2 03/23/19 20:00 98.7 103 19 163/77 (105) 97 03/23/19 19:26 80 22 100 T-Piece 5.0 28 03/23/19 19:16 84 24 100 T-Piece 5.0 28 03/23/19 19:16 100 T-Piece 5.0 28 03/23/19 19:00 94 19 144/108 (120) 100 03/23/19 18:00 93 18 107/60 (76) 99 03/23/19 17:00 98.7 77 22 133/55 (81) 99 03/23/19 16:00 T-piece 6.0 T-piece 6.0 03/23/19 16:00 83 23 135/60 (85) 99 03/23/19 16:00 6.0 28 03/23/19 16:00 78 03/23/19 15:00 81 20 129/67 (87) 100 03/23/19 14:57 81 19 100 T-Piece 5.0 28 83 21 100 03/23/19 14:00 80 22 102/50 (67) 98 03/23/19 13:00 82 22 121/55 (77) 97 03/23/19 12:52 97 T-Piece 5.0 28 03/23/19 12:00 98.7 104 19 121/55 (77) 95 03/23/19 12:00 T-piece 6.0 T-piece 6.0 03/23/19 12:00 6.0 28 03/23/19 12:00 81 03/23/19 11:31 85 22 99 T-Piece 5.0 28 84 22 100 03/23/19 11:00 88 22 110/50 (70) 98 03/23/19 10:00 85 23 138/59 (85) 97 03/23/19 09:00 98 20 153/63 (93) 95 03/23/19 08:00 6.0 28 03/23/19 08:00 T-piece 6.0 T-piece 6.0 03/23/19 08:00 98.6 86 21 139/61 (87) 98 03/23/19 08:00 82 03/23/19 07:57 81 21 99 T-Piece 5.0 28 87 22 100 03/23/19 07:22 100 T-Piece 5.0 28 03/23/19 07:00 81 22 141/66 (91) 100 03/23/19 06:00 82 22 144/61 (88) 99 03/23/19 05:00 80 21 146/65 (92) 100 03/23/19 04:00 T-piece 6.0 T-piece 6.0 03/23/19 04:00 6.0 28 03/23/19 04:00 98.4 84 23 165/75 (105) 100 03/23/19 03:34 74 03/23/19 03:00 73 22 106/57 (73) 100 03/23/19 02:55 73 22 100 T-Piece 5.0 28 74 21 100 03/23/19 02:00 73 21 123/60 (81) 100 03/23/19 01:16 100 T-Piece 5.0 28 03/23/19 01:00 80 20 118/49 (72) 99 03/23/19 00:07 81 03/23/19 00:00 98.4 97 20 148/101 (117) 100 03/23/19 00:00 6.0 28 03/23/19 00:00 T-piece 6.0 T-piece 6.0 03/22/19 23:08 77 24 100 T-Piece 5.0 28 74 25 100 03/22/19 23:00 77 24 147/62 (90) 100 03/22/19 22:00 86 21 160/75 (103) 100 I&O Intake and Output 03/22/19 03/23/19 19:00 07:00 Intake Total 720 ml 690 ml Output Total 220 ml 360 ml Balance 500 ml 330 ml Free Water 60 ml Tube Feeding 600 ml 550 ml Other 120 ml 80 ml Output Urine Total 220 ml 330 ml Gastric Drainage Total 30 ml # Bowel Movements 1 Dressing: dry Wound: clean Cardiovascular: RSR Respiratory: clear, decreased breath sounds Abdomen: soft, flat, non-tender, present bowel sounds Extremities: no edema, no cyanosis Laboratory Tests Test 03/23/19 04:00 White Blood Count 9.4 K/UL (4.8-10.8) Red Blood Count 2.99 M/UL (4.20-5.40) L Hemoglobin 8.3 G/DL (12.0-16.0) L Hematocrit 25.8 % (37.0-47.0) L Mean Corpuscular Volume 87 FL (80-99) Mean Corpuscular Hemoglobin 27.9 PG (27.0-31.0) Mean Corpuscular Hemoglobin Concent 32.2 G/DL (32.0-36.0) Red Cell Distribution Width 16.9 % (11.6-14.8) H Platelet Count 246 K/UL (150-450) Mean Platelet Volume 6.0 FL (6.5-10.1) L Neutrophils (%) (Auto) 51.7 % (45.0-75.0) Lymphocytes (%) (Auto) 36.1 % (20.0-45.0) Monocytes (%) (Auto) 7.2 % (1.0-10.0) Eosinophils (%) (Auto) 4.3 % (0.0-3.0) H Basophils (%) (Auto) 0.6 % (0.0-2.0) Sodium Level 139 MMOL/L (136-145) Potassium Level 4.7 MMOL/L (3.5-5.1) Chloride Level 104 MMOL/L (98-107) Carbon Dioxide Level 33 MMOL/L (21-32) H Anion Gap 2 mmol/L (5-15) L Blood Urea Nitrogen 24 mg/dL (7-18) H Creatinine 1.1 MG/DL (0.55-1.30) Estimat Glomerular Filtration Rate mL/min (>60) Glucose Level 116 MG/DL (74-106) H Calcium Level 8.5 MG/DL (8.5-10.1) Total Bilirubin 0.2 MG/DL (0.2-1.0) Aspartate Amino Transf (AST/SGOT) 33 U/L (15-37) Alanine Aminotransferase (ALT/SGPT) 40 U/L (12-78) Alkaline Phosphatase 194 U/L (46-116) H Pro-B-Type Natriuretic Peptide 223 pg/mL (0-125) H Total Protein 7.8 G/DL (6.4-8.2) Albumin 2.5 G/DL (3.4-5.0) L Globulin 5.3 g/dL Albumin/Globulin Ratio 0.5 (1.0-2.7) L Plan Problems: (1) Sacral decubitus ulcer Assessment & Plan: This is a 83-year-old female with multiple medical committees that is currently admitted for medical care and management and identified to have multiple wounds requiring care. On admission patient noted to have a resolved sacral decubitus ulcer. Has had prior care and is well-healed at this time. Will ensure it does not open up again. Patient has a right ischial decubitus ulcer that is resolved. Scar intact and well formed. Will monitor to ensure it does not open up again. Patient has a left ischial decubitus ulcer that can be identified to be stage IV with palpable bone that has been resolving as noted by the periwound tissue and scar but open area approximately 1 cm x 1.5 cm few millimeters deep to bone identified. Unsure if this is been to be completely healed prior and has since opened or if has been healing at this level. No foul odor no drainage was unsure local wound care until healed Bilateral heels soft without signs of injury Resolving pressure injury L ischium(L)1.8cm x (W)1cm.Scattered biofilm at base of wound. Edges flat and adherent with surrounding hyperpigmentation. No odor or exudate noted. Sacrum is pale pink with surrounding hyperpigmentation. Hyperpigmentation R ischium with small sheared area centrally.No areas of erythema or exudate noted. Both heels are soft but blanchable. Skin Assessed under collar of trach and no evidence of skin breakdown noted. All wound Tx. are effective and continued as ordered. Pt ahs an APM/Belén mattress overlay and is being repositioned per protocols and per tolerance.No new skin concerns noted. Full thickness pressure injury L Ischium with small amt biofilm (L)1.8cm x (W) 1cm. Surrounding pink hyperpigmentation. No odor or exudate noted. [place] hyperpigmentation from previous wound noted to sacrum. Pt also noted to have Cat 2 Skin Tear dorsal L hand, L 5th metatarsal extending into palm of hand. 80% skin flap in situ.Both heels are dry firm and blanchable. No other skin concerns noted. R ischial wound has resolved. [place] epithelial with surrounding hyperpigmentation. from historical wound. Full thickness pressure injury L ischium. [place] granulation at base of wound. Borders are macerated with Surrounding hyperpigmentation.Small amt non-odorous serous exudate noted.(L)0.7cm x (W)0.8cm. Skin hyperpigmentation from historical wound noted to Sacrum. Small sheared area noted to sacrococcygeal area.(L)0.4cm x (W)0.3cm.Small amt sanguineous exudate noted. Reabsorbed blister with semi-detached dry necrotic cap noted to web space of L thumb and L index fingers extending into palm of L hand. No odor or exudate noted. Skin assessed under tracheal collar and no erythema or evidence of Skin Breakdown noted. NO new skin concerns noted . Good hand hygiene provided to both hands. R hand contracted and fisted. Fingernails trimmed. Wound care provided along with Primary nurse. Wound Tx continued as ordered. New order obtained from to apply Betadine to wound L hand Daily. Tx done as ordered. L hand wrapped with kerlix weaving kerlix between fingers to separate fingers. Moisture Barrier applied to sacrum ,R ischium. Each site covered with Optifoam drsg. Both lower ext washed and moisturized. Cavilon Skin Barrier applied to both heels.Each heel covered with Optifoam drsgs. Pt positioned with pillows and both heels off-loaded with pillow. Tx.Plan: Apply Betadine to wound L hand. Cover with Gauze and wrap with Kerlix Daily and prn. Cleanse L ischial wound with Saline. Apply Therahoney. Apply Moisture Barrier periwound. Cover with Optifoam drsgevery 3 days and prn. Apply Moisture Barrier Paste to R ischium and Sacrum. Cover each area with Optifoam drsg. Change every 3 days and prn. Apply Cavilon Skin Barrier to both heels. Cover each heel with Optifoam drsg. Change every 7 days and prn. APM/BELÉN Mattress overlay. Reposition at least every 2hours or as tolerated. Off-load heels with pillow. Cleanse Blister Dorsal and palm of L hand with saline. Versatel One Silicone Contact Layer(Applied). Apply Silvasorb Gel. Wrap with Kerlix Gauze.Change every 7 days and prn. Apply Moisture Barrier to sacrum. Cover with Optifoam drsg. Change every 3 days and prn. Cleanse L ischial wound with saline. Apply Therahoney. Apply Moisture Barrier Paste periwound. Cover with Optifoam drsg. Change every 3 days and prn. Apply Cavilon Skin Barrier to both heels. Cover each heel with Optifoam drsg. Change every 7 days and prn. APM/BELÉN Mattress overlay. Reposition at least every 2hours or as tolerated. Off-load heels with pillow. Nutritional optimization We will monitor follow with recommendations cont with above upon d/c (2) Sepsis Assessment & Plan: IV abx as per ID trend labs improving wounds unlikely etiology likely respiratory imaging noted and okay abnormal lft's stable PICC on Abx in ICU for desaturation CXR with consolidation cont with frequent suctioning d/c planning possible placement found Evidence of left lower lobe pneumonia, also previously demonstrated Gastrostomy in good position Mild diastasis of the rectus abdominis musculature again demonstrated Retrosacral decubitus changes, better depicted on prior exam which included the pelvis Small hiatal hernia with evidence of trace gastroesophageal reflux Discussed with GI. Recommend GJ family still pending decision (3) Feeding by G-tube Assessment & Plan: DAILY ESTIMATED NEEDS: Needs based on Pulmonary, wounds, bedbound/ 61kg adj 25-30 kcals/kg 5182-2146 total kcals 1.25-2 g protein/kg 76-122 g total protein 25-30 mL/kg 1278-8214 total fluid mLs NUTRITION DIAGNOSIS: * Increased kcal/prot needs R/T wound healing as evidenced by BL buttocks and sacral wound photos, refer to eval. * Swallowing difficulty R/T respiratory status as evidenced by pt on T-collar, now back the vent, PEG dep. CURRENT TF:Glucerna 1.5 @ 25ml/hr x 24 hrs - currently HELD d/t emesis ENTERAL NUTRITION RECOMMENDATIONS: Glucerna 1.5 @ 45ml/hr x 24 hrs to provide 1080ml, 1620kcal, 89g prot, 820ml free water - As medically able, rec to increase goal rate to 45ml/hr x24 hrs to meet 100% est kcal/prot needs - HOB over 30 degrees - Water flush of 170ml q 6 hrs * W/ continued regurgitation/ emesis, rec Osmolite 1.5 for GI tolerance. Rec goal of 45ml/hr to provide: 1080ml, 1620 kcal, 68g pro, 823ml free H20. * Add Prosource 1 pack daily to provide additional 11g pro. ADDITIONAL RECOMMENDATIONS: 1) Weekly weights 2) Wound healing: Add Cristian 1pkt BID w/ good TF tolerance + MVI x1 daily 3) Monitor lytes, replete as needed 4) Monitor BGs closely, need for NISS (wnl) 5) Monitor TF tolerance: rec Tf change as above if not (4) Chronic vegetative state Assessment & Plan: incontinence of urine and stool. can soil dressings. nurses doing great job with monitoring and changing prn (5) Leukocytosis Walter Madera Mar 23, 2019 21:28
--- NOTE | 2019-03-23 21:43 | Endoscopy Procedure Note ---
Endoscopy Procedure Note General Indication for Procedure: tube feed intolerance Procedures Performed: jejunostomy tube Operative Findings/Diagnosis: see dictation Specimen: none Pt Tolerated Procedure Well: Yes Estimated Blood Loss: none Anesthesia Anesthesiologist: see report Anesthesia: MAC Inserted Devices Jejunostomy Tube: see dictation Implant(s) used?: No GI Core Measures 50 yrs or older w/o bx or poly: Not Applicable 10yrs. F/U recommended: Not Applicable Celio Vaughan MD Mar 23, 2019 21:43
--- NOTE | 2019-03-23 21:45 | Brief Operative Note ---
Immediate Post Operative Note Operative Note Chief Complaint: tube feed intolerance Pre-op Diagnosis: vomiting, tube feeding intolerance Procedure: EGD with G to J conversion Post-op Diagnosis: see dictation Surgeon: sunshine Anesthesiologist: see report Anesthesia: MAC Specimen: none Complications: none Condition: stable Fluids: per anesthesia Estimated Blood Loss: none Drains: none Implant(s) used?: No Celio Vaughan MD Mar 23, 2019 21:45
--- NOTE | 2019-03-23 21:55 | NUR ---
NURSE NOTES: LE: PT'S DAUGHTER STAYED AT BEDSIDE, PATIENT CALM, ON PIN OR SOB NOTED AT 2120PM. REPOSITIONED, ORAL CARE WAS DONE.
--- NOTE | 2019-03-23 22:59 | NUR ---
NURSE NOTES: NO FAMILY MEMBER AT BEDSIDE. PATIENT ASLEEP STATUS.
[2019-03-24] VITALS (24 sets, daily range): BP systolic 93–182; BP diastolic 40–99
--- NOTE | 2019-03-24 00:37 | NUR ---
NURSE NOTES: NO ACUTE DISTRESS NOTED AT THIS TIME.
--- NOTE | 2019-03-24 01:45 | Operative Note - Dictated ---
DATE OF OPERATION: 03/20/2019 GASTROENTEROLOGY PROCEDURE REPORT PROCEDURE: Upper gastrointestinal endoscopy with conversion of gastrostomy to jejunostomy tube. SURGEON: Celio Vaughan M.D. ANESTHESIA: Please see the separate anesthesiologist notes for details. PRE-ENDOSCOPIC DIAGNOSIS: Recurrent vomiting and tube feeding intolerance. POST-ENDOSCOPIC DIAGNOSES: 1. Severe gastroesophageal reflux disease with reflux related to ulceration in a circumferential fashion in the lower one-third of the esophagus. 2. Status post conversion of gastrostomy to jejunostomy tube. DESCRIPTION OF PROCEDURE: The procedure, its risks, indications, alternatives, and possible complications were explained to the patient's daughter and informed consent was obtained. The patient was then sedated in the supine position and a diagnostic upper endoscope was introduced through the oropharynx and advanced to the duodenum. Examination of the upper gastrointestinal mucosa revealed circumferential ulceration and erosions in the lower one-third of the esophagus. The gastrostomy tube was also identified. The gastrostomy tube was then removed and replaced with a gastrojejunostomy catheter. The loop at the tip was used with an Endoclip device to take it into the jejunum where it was clipped once, then again a second time. Position was verified endoscopically. The endoscope was removed. The patient was sent to Recovery in good condition. COMPLICATIONS: None. RECOMMENDATIONS: 1. Begin jejunostomy tube feeding. 2. Gastrostomy tube to drainage. 3. Continue IV proton pump inhibitor therapy and Reglan to help heal the lower esophageal reflux with ulcers. Celio Vaughan M.D. DR: CHARANJIT JOB#: [id number] CC: LITA
[2019-03-24] MEDS: Albuterol/Ipratropium 3ml neb HHN SCH ×6 (03:02→23:34)
--- NOTE | 2019-03-24 03:17 | NUR ---
NURSE NOTES: NO PAIN OR SOB NOTED AT THIS TIME.
--- NOTE | 2019-03-24 05:20 | NUR ---
NURSE NOTES: MORNING CARE AND ORAL CARE WAS DONE, NORMAL BM NOTED.
--- NOTE | 2019-03-24 06:30 | NUR ---
NURSE NOTES: NO ACUTE DISTRESS NOTED AT THIS SHIFT.
--- NOTE | 2019-03-24 07:20 | NUR ---
NURSE NOTES: RECEIVED BED SIDE REPORT FROM LEIGHA CAREER GUIDANCE TECHNICIAN OF NOC SHIFT. RECEIVED PT WITH HOB ELEVATED 45 DEGREE ,EYES OPENS WITH VERBAL AND TACTILE STIMULI .PT ON 28% COOL MIST AEROSOL VIA T-PIECE .PT IS TRACH DEPENDENT W/A CUFFED ,SHILEY 6XLT TUBE, CUFF IS CURRENTLY DEFLATED .RENDERED TRACH CARE AND ORAL HYGIENE ,LG AMT OF WHITE FROTHY SECRETIONS NOTED.PT WITH JT RECEIVING GLUCERNA 1.5 @ 50ML/HRS ,TOLERATING WELL AND GT TO GRAVITY. FULL BODY ASSESSMENT DONE. PICC-LINE ON RT UA INTACT.PT HAD LG BM,RENDERED TOTAL AM CARE ,GIVEN B.B AND WOUND CARE DONE PER M.D ORDERS.PT REPOSITIONED Q2HRS TO PROVIDE COMFORT AND TO PREVENT FURTHER SKIN BREAK DOWN. NO ACUTE DISTRESS NOTED AT THIS TIME. WILL CONT TO MONITOR.
--- NOTE | 2019-03-24 07:34 | NUR ---
HAND-OFF: Report given to JEANNINE GAN.
[2019-03-24] MEDS ORDERED: Metoclopramide 10mg/2ml Inj IVP PRN (08:00)
--- NOTE | 2019-03-24 09:20 | NUR ---
NURSE NOTES: DR CABA CAME TO SEE THE PT AND MADE AWARE AND NOTIFIED REGARDING PT IS TOLERATING WELL J.T JOLANTA. Aiden STATING THAT IS PLANNING TO DISCHARGE POSSIBLE TODAY TO A SUB-ACUTE FACILITY. WILL CONT TO MONITOR.
[2019-03-24] MEDS: levETIRAcetam 500mg/5ml Liquid GT SCH ×2 (09:30→21:04)
[2019-03-24] MEDS: Pantoprazole Inj IVP SCH ×2 (09:30→21:04)
[2019-03-24] MEDS: Heparin 5000 units/ml inj SUBQ SCH ×2 (09:34→21:05)
[2019-03-24] MEDS ORDERED: Sterile Water Irrig 1000ml IRRIG ONE (09:42)
[2019-03-24] MEDS ORDERED: NS 275ml ONE (09:42)
[2019-03-24] MEDS: Bacitracin Oint 15gm Tube TOPIC SCH ×3 (09:52→18:05)
--- NOTE | 2019-03-24 10:40 | Infectious Diseases Prog Note ---
"Assessment/Plan Assessment/Plan antibiotics : none A 1. klebsiella | providencia pneumonia s/p rx 2. respiratory failure 3. hypertension 4. CVA 5. dementia 6. sacral decubitus ulcer 7. rectal VRE colonization P 1. observe off antibiotics 2. dc planned Subjective ROS Limited/Unobtainable: Yes Allergies: Coded Allergies: CODEINE (Verified Allergy, Unknown, HIVES, 09/15/09) Objective Vital Signs Last 24 Hour Vital Signs Date Time Temp Pulse Resp B/P (MAP) Pulse Ox O2 Delivery O2 Flow Rate FiO2 03/24/19 10:00 81 23 147/59 (88) 100 03/24/19 09:00 82 21 139/61 (87) 100 03/24/19 08:00 82 03/24/19 08:00 6.0 28 03/24/19 08:00 T-piece 6.0 T-piece 6.0 03/24/19 08:00 98.3 84 23 151/68 (95) 100 03/24/19 07:01 95 21 100 T-Piece 5.0 28 93 21 100 03/24/19 07:01 100 T-Piece 5.0 28 03/24/19 07:00 90 25 147/67 (93) 99 03/24/19 06:05 112 19 182/66 (104) 96 03/24/19 06:00 127 18 93 03/24/19 05:00 98 22 116/87 (97) 91 03/24/19 04:00 71 03/24/19 04:00 T-piece 6.0 T-piece 6.0 03/24/19 04:00 6.0 28 03/24/19 04:00 98.9 71 22 119/49 (72) 100 03/24/19 03:12 82 17 100 T-Piece 5.0 28 03/24/19 03:02 77 23 100 T-Piece 5.0 28 03/24/19 03:00 78 23 148/62 (90) 99 03/24/19 02:00 76 23 140/56 (84) 100 03/24/19 01:16 100 T-Piece 5.0 28 03/24/19 01:00 72 21 140/69 (92) 100 03/24/19 00:00 6.0 28 03/24/19 00:00 98.5 75 22 100/44 (62) 98 12/24/19 00:00 T-piece 6.0 T-piece 6.0 03/24/19 00:00 75 03/23/19 23:19 76 21 100 T-Piece 5.0 28 03/23/19 23:09 95 20 100 T-Piece 5.0 28 03/23/19 23:00 76 21 126/46 (72) 100 03/23/19 22:00 79 23 132/53 (79) 99 03/23/19 21:00 78 23 135/56 (82) 100 03/23/19 20:00 98.7 103 19 163/77 (105) 97 03/23/19 20:00 78 03/23/19 20:00 6.0 28 03/23/19 20:00 T-piece 6.0 T-piece 6.0 03/23/19 19:26 80 22 100 T-Piece 5.0 28 03/23/19 19:16 84 24 100 T-Piece 5.0 28 03/23/19 19:16 100 T-Piece 5.0 28 03/23/19 19:00 94 19 144/108 (120) 100 03/23/19 18:00 93 18 107/60 (76) 99 03/23/19 17:00 98.7 77 22 133/55 (81) 99 03/23/19 16:00 T-piece 6.0 T-piece 6.0 03/23/19 16:00 83 23 135/60 (85) 99 03/23/19 16:00 6.0 28 03/23/19 16:00 78 03/23/19 15:00 81 20 129/67 (87) 100 03/23/19 14:57 81 19 100 T-Piece 5.0 28 83 21 100 03/23/19 14:00 80 22 102/50 (67) 98 03/23/19 13:00 82 22 121/55 (77) 97 03/23/19 12:52 97 T-Piece 5.0 28 03/23/19 12:00 98.7 104 19 121/55 (77) 95 03/23/19 12:00 T-piece 6.0 T-piece 6.0 03/23/19 12:00 6.0 28 03/23/19 12:00 81 03/23/19 11:31 85 22 99 T-Piece 5.0 28 84 22 100 03/23/19 11:00 88 22 110/50 (70) 98 Height (Feet): 5 Height (Inches): 4.00 Weight (Pounds): 110 HEENT: status post trach Respiratory/Chest: lungs clear Cardiovascular: normal rate, regular rhythm, no gallop/murmur Abdomen: soft, non tender, other - GT Extremities: no edema Current Medications Medications (Trade) Dose Ordered Sig/Maicol Route PRN Reason Start Time Stop Time Status Last Admin Dose Admin Acetaminophen (Tylenol) 650 mg Q6H PRN GT Mild Pain/Temp > 100.5 03/23/19 15:15 04/22/19 15:14 03/23/19 19:09 Albuterol/ Ipratropium (Albuterol/ Ipratropium) 3 ml Q4HRT HHN 03/20/19 11:00 03/25/19 10:59 03/24/19 07:00 Atropine Sulfate (Atropine Opth Adriana) 2 drop TID SL 03/07/19 09:00 04/06/19 08:59 03/24/19 09:51 Bacitracin (Bacitracin 15gm tube) 1 applic THREE TIMES A DAY TOPIC 02/28/19 18:30 03/30/19 18:29 03/24/19 09:52 Chlorhexidine Gluconate (Cesilia-Hex 2%) 1 applic DAILY@1999 TOPIC 03/12/19 20:00 04/11/19 19:59 03/23/19 19:53 Heparin Sodium (Porcine) (Heparin 5000 units/ml) 5,000 units EVERY 12 HOURS SUBQ 03/22/19 21:00 03/31/19 23:14 03/24/19 09:34 Hydralazine HCl (Apresoline) 10 mg Q4H PRN IV For High Blood Pressure 03/12/19 09:00 04/11/19 08:59 03/18/19 18:17 Levetiracetam (Keppra) 750 mg Q12HR GT 03/22/19 21:00 03/31/19 23:29 03/24/19 09:30 Lorazepam (Ativan 2mg/ml 1ml) 0.5 mg Q2H PRN IV For Seizures 03/23/19 15:15 03/30/19 15:14 Metoclopramide HCl (Reglan) 5 mg Q6H PRN IVP Nausea & Vomiting 03/24/19 08:00 04/23/19 07:59 Ondansetron HCl (Zofran) 4 mg Q4H PRN IVP Nausea & Vomiting 03/18/19 18:15 04/17/19 18:14 03/21/19 08:27 Pantoprazole (Protonix) 40 mg EVERY 12 HOURS IVP 03/20/19 21:00 04/19/19 20:59 03/24/19 09:30 Potassium Chloride (K-Dur) 20 meq DAILY GT 03/21/19 09:00 04/11/19 08:59 03/24/19 09:29 Geovany Yang MD Mar 24, 2019 10:40"
--- NOTE | 2019-03-24 12:25 | Surgery Progress Note ---
Surgery Progress Note Subjective Additional Comments no acute events exam stable dressings changed Objective Last 24 Hour Vital Signs Date Time Temp Pulse Resp B/P (MAP) Pulse Ox O2 Delivery O2 Flow Rate FiO2 03/24/19 11:15 90 20 100 T-Piece 5.0 28 86 20 100 03/24/19 11:00 87 23 144/71 (95) 100 03/24/19 10:00 81 23 147/59 (88) 100 03/24/19 09:00 82 21 139/61 (87) 100 03/24/19 08:00 82 03/24/19 08:00 6.0 28 03/24/19 08:00 T-piece 6.0 T-piece 6.0 03/24/19 08:00 98.3 84 23 151/68 (95) 100 03/24/19 07:01 95 21 100 T-Piece 5.0 28 93 21 100 03/24/19 07:01 100 T-Piece 5.0 28 03/24/19 07:00 90 25 147/67 (93) 99 03/24/19 06:05 112 19 182/66 (104) 96 03/24/19 06:00 127 18 93 03/24/19 05:00 98 22 116/87 (97) 91 03/24/19 04:00 71 03/24/19 04:00 T-piece 6.0 T-piece 6.0 03/24/19 04:00 6.0 28 03/24/19 04:00 98.9 71 22 119/49 (72) 100 03/24/19 03:12 82 17 100 T-Piece 5.0 28 03/24/19 03:02 77 23 100 T-Piece 5.0 28 03/24/19 03:00 78 23 148/62 (90) 99 03/24/19 02:00 76 23 140/56 (84) 100 03/24/19 01:16 100 T-Piece 5.0 28 03/24/19 01:00 72 21 140/69 (92) 100 03/24/19 00:00 6.0 28 03/24/19 00:00 98.5 75 22 100/44 (62) 98 03/24/19 00:00 T-piece 6.0 T-piece 6.0 03/24/19 00:00 75 03/23/19 23:19 76 21 100 T-Piece 5.0 28 03/23/19 23:09 95 20 100 T-Piece 5.0 28 03/23/19 23:00 76 21 126/46 (72) 100 03/23/19 22:00 79 23 132/53 (79) 99 03/23/19 21:00 78 23 135/56 (82) 100 03/23/19 20:00 98.7 103 19 163/77 (105) 97 03/23/19 20:00 78 03/23/19 20:00 6.0 28 03/23/19 20:00 T-piece 6.0 T-piece 6.0 03/23/19 19:26 80 22 100 T-Piece 5.0 28 03/23/19 19:16 84 24 100 T-Piece 5.0 28 03/23/19 19:16 100 T-Piece 5.0 28 03/23/19 19:00 94 19 144/108 (120) 100 03/23/19 18:00 93 18 107/60 (76) 99 03/23/19 17:00 98.7 77 22 133/55 (81) 99 03/23/19 16:00 T-piece 6.0 T-piece 6.0 03/23/19 16:00 83 23 135/60 (85) 99 03/23/19 16:00 6.0 28 03/23/19 16:00 78 03/23/19 15:00 81 20 129/67 (87) 100 03/23/19 14:57 81 19 100 T-Piece 5.0 28 83 21 100 03/23/19 14:00 80 22 102/50 (67) 98 03/23/19 13:00 82 22 121/55 (77) 97 03/23/19 12:52 97 T-Piece 5.0 28 I&O Intake and Output 03/23/19 03/24/19 19:00 07:00 Intake Total 720 ml 850 ml Output Total 155 ml 380 ml Balance 565 ml 470 ml Free Water 120 ml Tube Feeding 600 ml 650 ml Other 120 ml 80 ml Output Urine Total 155 ml 360 ml Gastric Drainage Total 20 ml # Voids 2 # Bowel Movements 1 Dressing: dry Wound: clean Cardiovascular: RSR Respiratory: clear Abdomen: soft, non-tender, present bowel sounds Extremities: no edema, no tenderness, no cyanosis Plan Problems: (1) Sacral decubitus ulcer Assessment & Plan: This is a 83-year-old female with multiple medical committees that is currently admitted for medical care and management and identified to have multiple wounds requiring care. On admission patient noted to have a resolved sacral decubitus ulcer. Has had prior care and is well-healed at this time. Will ensure it does not open up again. Patient has a right ischial decubitus ulcer that is resolved. Scar intact and well formed. Will monitor to ensure it does not open up again. Patient has a left ischial decubitus ulcer that can be identified to be stage IV with palpable bone that has been resolving as noted by the periwound tissue and scar but open area approximately 1 cm x 1.5 cm few millimeters deep to bone identified. Unsure if this is been to be completely healed prior and has since opened or if has been healing at this level. No foul odor no drainage was unsure local wound care until healed Bilateral heels soft without signs of injury Resolving pressure injury L ischium(L)1.8cm x (W)1cm.Scattered biofilm at base of wound. Edges flat and adherent with surrounding hyperpigmentation. No odor or exudate noted. Sacrum is pale pink with surrounding hyperpigmentation. Hyperpigmentation R ischium with small sheared area centrally.No areas of erythema or exudate noted. Both heels are soft but blanchable. Skin Assessed under collar of trach and no evidence of skin breakdown noted. All wound Tx. are effective and continued as ordered. Pt ahs an APM/Belén mattress overlay and is being repositioned per protocols and per tolerance.No new skin concerns noted. Full thickness pressure injury L Ischium with small amt biofilm (L)1.8cm x (W) 1cm. Surrounding pink hyperpigmentation. No odor or exudate noted. Whitestone hyperpigmentation from previous wound noted to sacrum. Pt also noted to have Cat 2 Skin Tear dorsal L hand, L 5th metatarsal extending into palm of hand. 80% skin flap in situ.Both heels are dry firm and blanchable. No other skin concerns noted. R ischial wound has resolved. Whitestone epithelial with surrounding hyperpigmentation. from historical wound. Full thickness pressure injury L ischium. Whitestone granulation at base of wound. Borders are macerated with Surrounding hyperpigmentation.Small amt non-odorous serous exudate noted.(L)0.7cm x (W)0.8cm. Skin hyperpigmentation from historical wound noted to Sacrum. Small sheared area noted to sacrococcygeal area.(L)0.4cm x (W)0.3cm.Small amt sanguineous exudate noted. Reabsorbed blister with semi-detached dry necrotic cap noted to web space of L thumb and L index fingers extending into palm of L hand. No odor or exudate noted. Skin assessed under tracheal collar and no erythema or evidence of Skin Breakdown noted. NO new skin concerns noted . Good hand hygiene provided to both hands. R hand contracted and fisted. Fingernails trimmed. Wound care provided along with Primary nurse. Wound Tx continued as ordered. New order obtained from to apply Betadine to wound L hand Daily. Tx done as ordered. L hand wrapped with kerlix weaving kerlix between fingers to separate fingers. Moisture Barrier applied to sacrum ,R ischium. Each site covered with Optifoam drsg. Both lower ext washed and moisturized. Cavilon Skin Barrier applied to both heels.Each heel covered with Optifoam drsgs. Pt positioned with pillows and both heels off-loaded with pillow. Tx.Plan: Apply Betadine to wound L hand. Cover with Gauze and wrap with Kerlix Daily and prn. Cleanse L ischial wound with Saline. Apply Therahoney. Apply Moisture Barrier periwound. Cover with Optifoam drsgevery 3 days and prn. Apply Moisture Barrier Paste to R ischium and Sacrum. Cover each area with Optifoam drsg. Change every 3 days and prn. Apply Cavilon Skin Barrier to both heels. Cover each heel with Optifoam drsg. Change every 7 days and prn. APM/BELÉN Mattress overlay. Reposition at least every 2hours or as tolerated. Off-load heels with pillow. Cleanse Blister Dorsal and palm of L hand with saline. Versatel One Silicone Contact Layer(Applied). Apply Silvasorb Gel. Wrap with Kerlix Gauze.Change every 7 days and prn. Apply Moisture Barrier to sacrum. Cover with Optifoam drsg. Change every 3 days and prn. Cleanse L ischial wound with saline. Apply Therahoney. Apply Moisture Barrier Paste periwound. Cover with Optifoam drsg. Change every 3 days and prn. Apply Cavilon Skin Barrier to both heels. Cover each heel with Optifoam drsg. Change every 7 days and prn. APM/BELÉN Mattress overlay. Reposition at least every 2hours or as tolerated. Off-load heels with pillow. Nutritional optimization We will monitor follow with recommendations cont with above upon d/c (2) Sepsis Assessment & Plan: IV abx as per ID trend labs improving wounds unlikely etiology likely respiratory imaging noted and okay abnormal lft's stable PICC on Abx in ICU for desaturation CXR with consolidation cont with frequent suctioning d/c planning possible placement found Evidence of left lower lobe pneumonia, also previously demonstrated Gastrostomy in good position Mild diastasis of the rectus abdominis musculature again demonstrated Retrosacral decubitus changes, better depicted on prior exam which included the pelvis Small hiatal hernia with evidence of trace gastroesophageal reflux Discussed with GI. Recommend GJ family still pending decision (3) Feeding by G-tube Assessment & Plan: DAILY ESTIMATED NEEDS: Needs based on Pulmonary, wounds, bedbound/ 61kg adj 25-30 kcals/kg 6632-6396 total kcals 1.25-2 g protein/kg 76-122 g total protein 25-30 mL/kg 2557-6882 total fluid mLs NUTRITION DIAGNOSIS: * Increased kcal/prot needs R/T wound healing as evidenced by BL buttocks and sacral wound photos, refer to eval. * Swallowing difficulty R/T respiratory status as evidenced by pt on T-collar, now back the vent, PEG dep. CURRENT TF:Glucerna 1.5 @ 25ml/hr x 24 hrs - currently HELD d/t emesis ENTERAL NUTRITION RECOMMENDATIONS: Glucerna 1.5 @ 45ml/hr x 24 hrs to provide 1080ml, 1620kcal, 89g prot, 820ml free water - As medically able, rec to increase goal rate to 45ml/hr x24 hrs to meet 100% est kcal/prot needs - HOB over 30 degrees - Water flush of 170ml q 6 hrs * W/ continued regurgitation/ emesis, rec Osmolite 1.5 for GI tolerance. Rec goal of 45ml/hr to provide: 1080ml, 1620 kcal, 68g pro, 823ml free H20. * Add Prosource 1 pack daily to provide additional 11g pro. ADDITIONAL RECOMMENDATIONS: 1) Weekly weights 2) Wound healing: Add Cristian 1pkt BID w/ good TF tolerance + MVI x1 daily 3) Monitor lytes, replete as needed 4) Monitor BGs closely, need for NISS (wnl) 5) Monitor TF tolerance: rec Tf change as above if not (4) Chronic vegetative state Assessment & Plan: incontinence of urine and stool. can soil dressings. nurses doing great job with monitoring and changing prn (5) Leukocytosis Walter Madera Mar 24, 2019 12:25
--- NOTE | 2019-03-24 13:21 | General Progress Note ---
Assessment/Plan Problem List: (1) Seizure ICD Codes: R56.9 - Unspecified convulsions SNOMED: 34037505 (2) Anemia ICD Codes: D64.9 - Anemia, unspecified SNOMED: 410391946 Qualifiers: Qualified Codes: D64.9 - Anemia, unspecified (3) Sepsis ICD Codes: A41.9 - Sepsis, unspecified organism SNOMED: 30701523, 767697623 Qualifiers: Qualified Codes: A41.9 - Sepsis, unspecified organism (4) Respiratory failure with hypoxia ICD Codes: J96.91 - Respiratory failure, unspecified with hypoxia SNOMED: 74719727002683614 Qualifiers: Qualified Codes: J96.21 - Acute and chronic respiratory failure with hypoxia (5) HCAP (healthcare-associated pneumonia) ICD Codes: J18.9 - Pneumonia, unspecified organism SNOMED: 637910868, 550515850 (6) Sacral decubitus ulcer ICD Codes: L89.159 - Pressure ulcer of sacral region, unspecified stage SNOMED: 442889676 (7) HTN (hypertension) ICD Codes: I10 - Essential (primary) hypertension SNOMED: 25611676 (8) Chronic vegetative state ICD Codes: R40.3 - Persistent vegetative state SNOMED: 97197042 (9) Chronic respiratory failure ICD Codes: J96.10 - Chronic respiratory failure, unspecified whether with hypoxia or hypercapnia SNOMED: 88698048 (10) Limited mobility ICD Codes: Z74.09 - Other reduced mobility SNOMED: 4560377 Status: stable, progressing Assessment/Plan: vent as needed resp rx suctioning j tube feeds skin care sz rx monitor h/h Subjective ROS Limited/Unobtainable: No Constitutional: Reports: malaise, weakness HEENT: Reports: no symptoms Cardiovascular: Reports: no symptoms Respiratory: Reports: cough, shortness of breath, sputum Gastrointestinal/Abdominal: Reports: difficulty swallowing Genitourinary: Reports: no symptoms Neurologic/Psychiatric: Reports: pre-existing deficit, seizure Endocrine: Reports: no symptoms Hematologic/Lymphatic: Reports: anemia Allergies: Coded Allergies: CODEINE (Verified Allergy, Unknown, HIVES, 09/15/09) All Systems: reviewed and negative except above Subjective s/p j tube placement. tolerating feeds so far. no fevers. no vomiting. Objective Last 24 Hour Vital Signs Date Time Temp Pulse Resp B/P (MAP) Pulse Ox O2 Delivery O2 Flow Rate FiO2 03/24/19 13:06 100 T-Piece 5.0 28 03/24/19 13:00 81 24 123/50 (74) 100 03/24/19 12:00 83 03/24/19 12:00 6.0 28 03/24/19 12:00 T-piece 6.0 T-piece 6.0 03/24/19 12:00 97.8 83 21 137/50 (79) 100 03/24/19 11:15 90 20 100 T-Piece 5.0 28 86 20 100 03/24/19 11:00 87 23 144/71 (95) 100 03/24/19 10:00 81 23 147/59 (88) 100 03/24/19 09:00 82 21 139/61 (87) 100 03/24/19 08:00 82 03/24/19 08:00 6.0 28 03/24/19 08:00 T-piece 6.0 T-piece 6.0 03/24/19 08:00 98.3 84 23 151/68 (95) 100 03/24/19 07:01 95 21 100 T-Piece 5.0 28 93 21 100 03/24/19 07:01 100 T-Piece 5.0 28 03/24/19 07:00 90 25 147/67 (93) 99 03/24/19 06:05 112 19 182/66 (104) 96 03/24/19 06:00 127 18 93 03/24/19 05:00 98 22 116/87 (97) 91 03/24/19 04:00 71 03/24/19 04:00 T-piece 6.0 T-piece 6.0 03/24/19 04:00 6.0 28 03/24/19 04:00 98.9 71 22 119/49 (72) 100 03/24/19 03:12 82 17 100 T-Piece 5.0 28 03/24/19 03:02 77 23 100 T-Piece 5.0 28 03/24/19 03:00 78 23 148/62 (90) 99 03/24/19 02:00 76 23 140/56 (84) 100 03/24/19 01:16 100 T-Piece 5.0 28 03/24/19 01:00 72 21 140/69 (92) 100 03/24/19 00:00 6.0 28 03/24/19 00:00 98.5 75 22 100/44 (62) 98 03/24/19 00:00 T-piece 6.0 T-piece 6.0 03/24/19 00:00 75 03/23/19 23:19 76 21 100 T-Piece 5.0 28 03/23/19 23:09 95 20 100 T-Piece 5.0 28 03/23/19 23:00 76 21 126/46 (72) 100 03/23/19 22:00 79 23 132/53 (79) 99 03/23/19 21:00 78 23 135/56 (82) 100 03/23/19 20:00 98.7 103 19 163/77 (105) 97 03/23/19 20:00 78 03/23/19 20:00 6.0 28 03/23/19 20:00 T-piece 6.0 T-piece 6.0 03/23/19 19:26 80 22 100 T-Piece 5.0 28 03/23/19 19:16 84 24 100 T-Piece 5.0 28 03/23/19 19:16 100 T-Piece 5.0 28 03/23/19 19:00 94 19 144/108 (120) 100 03/23/19 18:00 93 18 107/60 (76) 99 03/23/19 17:00 98.7 77 22 133/55 (81) 99 03/23/19 16:00 T-piece 6.0 T-piece 6.0 03/23/19 16:00 83 23 135/60 (85) 99 03/23/19 16:00 6.0 28 03/23/19 16:00 78 03/23/19 15:00 81 20 129/67 (87) 100 03/23/19 14:57 81 19 100 T-Piece 5.0 28 83 21 100 03/23/19 14:00 80 22 102/50 (67) 98 Intake and Output 03/23/19 03/24/19 19:00 07:00 Intake Total 720 ml 850 ml Output Total 155 ml 380 ml Balance 565 ml 470 ml Free Water 120 ml Tube Feeding 600 ml 650 ml Other 120 ml 80 ml Output Urine Total 155 ml 360 ml Gastric Drainage Total 20 ml # Voids 2 # Bowel Movements 1 Height (Feet): 5 Height (Inches): 4.00 Weight (Pounds): 110 Objective General Appearance: WD/WN, confused. on trach collar Neck: supple Cardiovascular: normal rate, regular rhythm Respiratory/Chest: chest wall non-tender, rhonchi - bilaterally(minimal) Abdomen: normal bowel sounds, non tender, soft, no organomegaly Edema: no edema noted Arm (L), no edema noted Arm (R), no edema noted Leg (L), no edema noted Leg (R), no edema noted Pedal (L), no edema noted Pedal (R), no edema noted Generalized Neurologic: disoriented, unresponsive, aphasia Irvin Beltrán MD Mar 24, 2019 13:21
--- NOTE | 2019-03-24 13:49 | General Progress Note ---
Assessment/Plan Status: stable, progressing Assessment/Plan: Assessment - N/V - resolved with G --> J conversion - now tolerating TF at goal - suction gently - Elevated Alk phos / LFT - CT negative - abd U/S negative - check hepatitis serologies - negative - Anemia with OB (-) stools - Resp failure, s/p Trach - dysphagia, s/p PEG --> s/p GT change--> GJ tube - OBS, vegetative unresponsive state, bedbound state, contracted extremities, - minor GT tract inflammation / infection - treat locally - poor Prognosis Recommendations - laxative PRN - antibiotic ointment to GJT site PRN - aspiration precautions - elevate HOB - continue TF Subjective Allergies: Coded Allergies: CODEINE (Verified Allergy, Unknown, HIVES, 09/15/09) Subjective seen in am tolerating TF (+) BM d/w RN Objective Last 24 Hour Vital Signs Date Time Temp Pulse Resp B/P (MAP) Pulse Ox O2 Delivery O2 Flow Rate FiO2 03/24/19 13:06 100 T-Piece 5.0 28 03/24/19 13:00 81 24 123/50 (74) 100 03/24/19 12:00 83 03/24/19 12:00 6.0 28 03/24/19 12:00 T-piece 6.0 T-piece 6.0 03/24/19 12:00 97.8 83 21 137/50 (79) 100 03/24/19 11:15 90 20 100 T-Piece 5.0 28 86 20 100 03/24/19 11:00 87 23 144/71 (95) 100 03/24/19 10:00 81 23 147/59 (88) 100 03/24/19 09:00 82 21 139/61 (87) 100 03/24/19 08:00 82 03/24/19 08:00 6.0 28 03/24/19 08:00 T-piece 6.0 T-piece 6.0 03/24/19 08:00 98.3 84 23 151/68 (95) 100 03/24/19 07:01 95 21 100 T-Piece 5.0 28 93 21 100 03/24/19 07:01 100 T-Piece 5.0 28 03/24/19 07:00 90 25 147/67 (93) 99 03/24/19 06:05 112 19 182/66 (104) 96 03/24/19 06:00 127 18 93 03/24/19 05:00 98 22 116/87 (97) 91 03/24/19 04:00 71 03/24/19 04:00 T-piece 6.0 T-piece 6.0 03/24/19 04:00 6.0 28 03/24/19 04:00 98.9 71 22 119/49 (72) 100 03/24/19 03:12 82 17 100 T-Piece 5.0 28 03/24/19 03:02 77 23 100 T-Piece 5.0 28 03/24/19 03:00 78 23 148/62 (90) 99 03/24/19 02:00 76 23 140/56 (84) 100 03/24/19 01:16 100 T-Piece 5.0 28 03/24/19 01:00 72 21 140/69 (92) 100 03/24/19 00:00 6.0 28 03/24/19 00:00 98.5 75 22 100/44 (62) 98 03/24/19 00:00 T-piece 6.0 T-piece 6.0 03/24/19 00:00 75 03/23/19 23:19 76 21 100 T-Piece 5.0 28 03/23/19 23:09 95 20 100 T-Piece 5.0 28 03/23/19 23:00 76 21 126/46 (72) 100 03/23/19 22:00 79 23 132/53 (79) 99 03/23/19 21:00 78 23 135/56 (82) 100 03/23/19 20:00 98.7 103 19 163/77 (105) 97 03/23/19 20:00 78 03/23/19 20:00 6.0 28 03/23/19 20:00 T-piece 6.0 T-piece 6.0 03/23/19 19:26 80 22 100 T-Piece 5.0 28 03/23/19 19:16 84 24 100 T-Piece 5.0 28 03/23/19 19:16 100 T-Piece 5.0 28 03/23/19 19:00 94 19 144/108 (120) 100 03/23/19 18:00 93 18 107/60 (76) 99 03/23/19 17:00 98.7 77 22 133/55 (81) 99 03/23/19 16:00 T-piece 6.0 T-piece 6.0 03/23/19 16:00 83 23 135/60 (85) 99 03/23/19 16:00 6.0 28 03/23/19 16:00 78 03/23/19 15:00 81 20 129/67 (87) 100 03/23/19 14:57 81 19 100 T-Piece 5.0 28 83 21 100 03/23/19 14:00 80 22 102/50 (67) 98 Intake and Output 03/23/19 03/24/19 19:00 07:00 Intake Total 720 ml 850 ml Output Total 155 ml 380 ml Balance 565 ml 470 ml Free Water 120 ml Tube Feeding 600 ml 650 ml Other 120 ml 80 ml Output Urine Total 155 ml 360 ml Gastric Drainage Total 20 ml # Voids 2 # Bowel Movements 1 Height (Feet): 5 Height (Inches): 4.00 Weight (Pounds): 110 Objective Debilitated AA woman non-verbal NCAT (+) trach coarse ronchi RR obese abd, (+) GJT no edema (+) contractured extremities Celio Vaughan MD Mar 24, 2019 13:49
--- NOTE | 2019-03-24 14:52 | Nephrology Progress Note ---
Assessment/Plan Problem List: (1) Acute renal failure (ARF) Assessment: Cr stable (2) Chronic respiratory failure (3) Anemia (4) Sepsis Assessment Acute renal failure Respiratory failure - Trach Low Mag- Low k , Low Na Anemia UTI / Sepsis Proteinuria / HypoAlbuminemia high Trigs Sz decubs bed bound DNR Plan now has JT bolus Albumin as needed K and Mag and Phos supplement as needed Hydrate as needed Urine studies avoid Nephrotoxics mag K Phos supplements as needed monitor renal parameters Subjective ROS Limited/Unobtainable: Yes Objective Objective Last 24 Hour Vital Signs Date Time Temp Pulse Resp B/P (MAP) Pulse Ox O2 Delivery O2 Flow Rate FiO2 03/24/19 14:00 83 22 104/40 (61) 100 03/24/19 13:06 100 T-Piece 5.0 28 03/24/19 13:00 81 24 123/50 (74) 100 03/24/19 12:00 83 03/24/19 12:00 6.0 28 03/24/19 12:00 T-piece 6.0 T-piece 6.0 03/24/19 12:00 97.8 83 21 137/50 (79) 100 03/24/19 11:15 90 20 100 T-Piece 5.0 28 86 20 100 03/24/19 11:00 87 23 144/71 (95) 100 03/24/19 10:00 81 23 147/59 (88) 100 03/24/19 09:00 82 21 139/61 (87) 100 03/24/19 08:00 82 03/24/19 08:00 6.0 28 03/24/19 08:00 T-piece 6.0 T-piece 6.0 03/24/19 08:00 98.3 84 23 151/68 (95) 100 03/24/19 07:01 95 21 100 T-Piece 5.0 28 93 21 100 03/24/19 07:01 100 T-Piece 5.0 28 03/24/19 07:00 90 25 147/67 (93) 99 03/24/19 06:05 112 19 182/66 (104) 96 03/24/19 06:00 127 18 93 03/24/19 05:00 98 22 116/87 (97) 91 03/24/19 04:00 71 03/24/19 04:00 T-piece 6.0 T-piece 6.0 03/24/19 04:00 6.0 28 03/24/19 04:00 98.9 71 22 119/49 (72) 100 03/24/19 03:12 82 17 100 T-Piece 5.0 28 03/24/19 03:02 77 23 100 T-Piece 5.0 28 03/24/19 03:00 78 23 148/62 (90) 99 03/24/19 02:00 76 23 140/56 (84) 100 03/24/19 01:16 100 T-Piece 5.0 28 03/24/19 01:00 72 21 140/69 (92) 100 03/24/19 00:00 6.0 28 03/24/19 00:00 98.5 75 22 100/44 (62) 98 03/24/19 00:00 T-piece 6.0 T-piece 6.0 03/24/19 00:00 75 03/23/19 23:19 76 21 100 T-Piece 5.0 28 03/23/19 23:09 95 20 100 T-Piece 5.0 28 03/23/19 23:00 76 21 126/46 (72) 100 03/23/19 22:00 79 23 132/53 (79) 99 03/23/19 21:00 78 23 135/56 (82) 100 03/23/19 20:00 98.7 103 19 163/77 (105) 97 03/23/19 20:00 78 03/23/19 20:00 6.0 28 03/23/19 20:00 T-piece 6.0 T-piece 6.0 03/23/19 19:26 80 22 100 T-Piece 5.0 28 03/23/19 19:16 84 24 100 T-Piece 5.0 28 03/23/19 19:16 100 T-Piece 5.0 28 03/23/19 19:00 94 19 144/108 (120) 100 03/23/19 18:00 93 18 107/60 (76) 99 03/23/19 17:00 98.7 77 22 133/55 (81) 99 03/23/19 16:00 T-piece 6.0 T-piece 6.0 03/23/19 16:00 83 23 135/60 (85) 99 03/23/19 16:00 6.0 28 03/23/19 16:00 78 03/23/19 15:00 81 20 129/67 (87) 100 03/23/19 14:57 81 19 100 T-Piece 5.0 28 83 21 100 Intake and Output 03/23/19 03/24/19 19:00 07:00 Intake Total 720 ml 850 ml Output Total 155 ml 380 ml Balance 565 ml 470 ml Free Water 120 ml Tube Feeding 600 ml 650 ml Other 120 ml 80 ml Output Urine Total 155 ml 360 ml Gastric Drainage Total 20 ml # Voids 2 # Bowel Movements 1 Height (Feet): 5 Height (Inches): 4.00 Weight (Pounds): 110 General Appearance: no apparent distress EENT: other - trach to O2 Cardiovascular: tachycardia Respiratory/Chest: decreased breath sounds Abdomen: distended Objective no change Eric Cortez MD Mar 24, 2019 14:52
--- NOTE | 2019-03-24 15:41 | NUR ---
DISCHARGE PLANNING WAITING FOR BED AT [facility] TO BE ASSIGNED
--- NOTE | 2019-03-24 19:20 | NUR ---
HAND-OFF: Report given to .LIEGHA PAEZ.
--- NOTE | 2019-03-24 19:33 | NUR ---
NURSE NOTES: PATIENT OPEN EYES, UNABLE TO EYE CONTACT, DID NOT FOLLOW COMMANDS, RESPIRATION REGULAR, ON TRACH, FIO2 28% COOL AEROSOL T- PIECE, O2 SATURATION 100% NOTED, ABDOMEN SOFT, NO BM STATUS, G-J TUBE INTACT AND PATENT, G TUBE DRAINING GRAVITY, ONGOING J TUBE FEEDING, GLUCERNA 1.5 AT 50ML/HR, TOLERATED FEEDING, NO N/V NOTED, KEPT HOB 30 DEGREES AND ASPIRATION PRECAUTION, VOID WITH PURE WICK, YELLOW URINE OUTED, PICC LINE TO RIGHT UPPER ARM, INTACT AND PATENT, KEPT SZ AND FALL PRECAUTION, ON P200 BED, MADE LOWER BED POSITION, ON BED ALARM AND LOCKED, PROVIDED CALL LIGHT WITHIN REACH BUT UNABLE TO USE STATUS, WILL CONTINUE TO MONITOR.
--- NOTE | 2019-03-24 19:34 | NUR ---
RESPIRATORY NOTE: Received pt on 28% Cool Aerosol via T-Piece. Pt is trach-dependent w/ a cuffed, Shiley 6 XLT tube. Cuff is currently deflated. Pt asleep/flat effect, responds to stimuli. B/S flory. rhonchi, sxn small to moderate amounts of thin/frothy, clear-white secretions. Ventilator on stand by at bedside, plugged into red outlet. Ambubag also at bedside. Pt in no apparent distress at this time. Will continue to monitor pt.
[2019-03-24] MEDS: Metoclopramide 10mg/2ml Inj IVP SCH (19:43)
[2019-03-24] MEDS: Dyna-Hex 2% Top Sol 2oz TOPIC SCH (19:43)
--- NOTE | 2019-03-24 19:45 | Progress Note ---
DATE: 03/24/2019 CARDIOLOGY PROGRESS NOTE SUBJECTIVE: Remains on ventilator support. Tolerating J-tube feedings. Secretions are minimal. Monitored rhythm sinus. OBJECTIVE: VITAL SIGNS: Blood pressure 123/50, heart rate 81, respirations 24, no fevers. HEENT: Thin secretions from G-tube. LUNGS: Bilateral breath sounds. GJ tube in place. CARDIAC: Regular with no new murmur. EXTREMITIES: Trace dependent edema. LABORATORY DATA: Reviewed. Notable for white count 9.4, hemoglobin 8.3. BUN 24, creatinine 1.1. Pro-natriuretic peptide 223. IMPRESSION: Overall stabilizing. PLAN: 1. Continue current regimen. 2. Consider additional fluids by G-tube. 3. No additional cardiovascular therapies otherwise indicated. Bg Hagen M.D. DR: ALEXANDER JOB#: [id number] CC:
--- NOTE | 2019-03-24 20:26 | Pulmonolgy Critical Care Note ---
Critical Care - Asmt/Plan Assessment/Plan: Pulmonary CCM Progress Note Assessment/Plan Impression: Sepsis syndrome Pneumonia, KPC VDRF, Trach, G tube, Hypertension, Cardiac disease, Dementia, Previous CVA, Seizure disorder, Respiratory failure with hypoxia, on TC Anemia Sacral ulcer renal cyst pulmonary congestion Plan respiratory care to continue as is, TC as tolerated atropine neb therapy SNF meds as is off vent as able and has been off for several day Oxygen as needed Monitor labs daily changes noted and reviewed feeds as tolerated monitor albumin levels and provide protein and nutrition elevate head aspiration precautions Patient is a DNR. No CPR. ICU care reviewed medications/laboratory data/nursing notes/ICU care reviewed in detail note reviewed and edited care discussed with RN and RT ICU time spent 45 minutes Subjective Allergies: Coded Allergies: CODEINE (Verified Allergy, Unknown, HIVES, 09/15/09) Subjective respiratory care noted congestion- improved with atropine ICU care reviewed supportive care noted and reviewed RT care reviewed overnight care noted findings reviewed and discussed in detail with nursing and RT seen earlier this am Objective Vital Signs Noted Objective WDWN NAD contracted off vent reduced breath sounds bilaterally with some rhonchi; no wheeze [id number] without MRG NABS nontender no HSM no CC minimal nonfocal nonverbal trach and gt reviewed and edited Laboratory Tests Noted Critical Care - Objective Last 24 Hour Vital Signs Date Time Temp Pulse Resp B/P (MAP) Pulse Ox O2 Delivery O2 Flow Rate FiO2 03/24/19 19:40 80 24 100 T-Piece 5.0 28 03/24/19 19:30 81 21 100 T-Piece 5.0 28 03/24/19 19:30 100 T-Piece 5.0 28 03/24/19 18:00 96 21 138/90 (106) 100 03/24/19 17:00 88 19 109/85 (93) 100 03/24/19 16:00 97.6 77 22 127/58 (81) 100 03/24/19 16:00 6.0 28 03/24/19 16:00 T-piece 6.0 T-piece 6.0 03/24/19 16:00 81 03/24/19 15:45 84 22 100 T-Piece 5.0 28 80 22 100 03/24/19 15:00 83 23 100/47 (64) 100 03/24/19 14:00 83 22 104/40 (61) 100 03/24/19 13:06 100 T-Piece 5.0 28 03/24/19 13:00 81 24 123/50 (74) 100 03/24/19 12:00 83 03/24/19 12:00 6.0 28 03/24/19 12:00 T-piece 6.0 T-piece 6.0 03/24/19 12:00 97.8 83 21 137/50 (79) 100 03/24/19 11:15 90 20 100 T-Piece 5.0 28 86 20 100 03/24/19 11:00 87 23 144/71 (95) 100 03/24/19 10:00 81 23 147/59 (88) 100 03/24/19 09:00 82 21 139/61 (87) 100 03/24/19 08:00 82 03/24/19 08:00 6.0 28 03/24/19 08:00 T-piece 6.0 T-piece 6.0 03/24/19 08:00 98.3 84 23 151/68 (95) 100 03/24/19 07:01 95 21 100 T-Piece 5.0 28 93 21 100 03/24/19 07:01 100 T-Piece 5.0 28 03/24/19 07:00 90 25 147/67 (93) 99 03/24/19 06:05 112 19 182/66 (104) 96 03/24/19 06:00 127 18 93 03/24/19 05:00 98 22 116/87 (97) 91 03/24/19 04:00 71 03/24/19 04:00 T-piece 6.0 T-piece 6.0 03/24/19 04:00 6.0 28 03/24/19 04:00 98.9 71 22 119/49 (72) 100 03/24/19 03:12 82 17 100 T-Piece 5.0 28 03/24/19 03:02 77 23 100 T-Piece 5.0 28 03/24/19 03:00 78 23 148/62 (90) 99 03/24/19 02:00 76 23 140/56 (84) 100 03/24/19 01:16 100 T-Piece 5.0 28 03/24/19 01:00 72 21 140/69 (92) 100 03/24/19 00:00 6.0 28 03/24/19 00:00 98.5 75 22 100/44 (62) 98 03/24/19 00:00 T-piece 6.0 T-piece 6.0 03/24/19 00:00 75 03/23/19 23:19 76 21 100 T-Piece 5.0 28 03/23/19 23:09 95 20 100 T-Piece 5.0 28 03/23/19 23:00 76 21 126/46 (72) 100 03/23/19 22:00 79 23 132/53 (79) 99 03/23/19 21:00 78 23 135/56 (82) 100 Critical Care - Subjective ROS Limited/Unobtainable: No FI02: 28 Vent Support Mode: CPAP Vent Tidal Volume: 450 Sputum Amount: Moderate PEEP: 5.0 PIP: 19 Tube Feeding Amount: 50 I&O: Intake and Output 03/23/19 03/24/19 19:00 07:00 Intake Total 720 ml 850 ml Output Total 155 ml 380 ml Balance 565 ml 470 ml Free Water 120 ml Tube Feeding 600 ml 650 ml Other 120 ml 80 ml Output Urine Total 155 ml 360 ml Gastric Drainage Total 20 ml # Voids 2 # Bowel Movements 1 ET-Tube: 6.0 Bg Moffett MD Mar 24, 2019 20:26
--- NOTE | 2019-03-24 22:15 | NUR ---
NURSE NOTES: REPOSITIONED AND ORAL CARE WAS DONE.
--- NOTE | 2019-03-24 23:44 | NUR ---
NURSE NOTES: TOLERATED FEEDING STATUS, NO PAIN OR DISTRESS NOTED AT THIS TIME.
[2019-03-25] VITALS (26 sets, daily range): BP systolic 93–153; BP diastolic 49–121
--- NOTE | 2019-03-25 01:43 | NUR ---
NURSE NOTES: PATIENT ASLEEP STATUS, NO PAIN OR SOB NOTED.
[2019-03-25] MEDS: Metoclopramide 10mg/2ml Inj IVP SCH ×4 (02:18→19:39)
[2019-03-25] MEDS: Albuterol/Ipratropium 3ml neb HHN SCH ×6 (03:31→23:41)
--- NOTE | 2019-03-25 03:50 | NUR ---
NURSE NOTES: MORNING CARE AND ORAL CARE WAS DONE.
[2019-03-25 04:30] LABS: BASOPHILS % (AUTO) 0.7 % (0.0-2.0); EOSINOPHILS % (AUTO) 6.1 % (0.0-3.0); HEMATOCRIT 27.2 % (37.0-47.0); HEMOGLOBIN 9.2 G/DL (12.0-16.0); LYMPHOCYTES % (AUTO) 38.8 % (20.0-45.0); MEAN CORPUSCULAR VOLUME 86 FL (80-99); MONOCYTES % (AUTO) 5.5 % (1.0-10.0); PLATELET COUNT 279 K/UL (150-450); RED BLOOD COUNT 3.15 M/UL (4.20-5.40); RED CELL DISTRIBUTION WIDTH 16.4 % (11.6-14.8); WHITE BLOOD COUNT 12.7 K/UL (4.8-10.8)
[2019-03-25 05:04] LABS: ALANINE AMINOTRANSFERASE 36 U/L (12-78); ALBUMIN 2.8 G/DL (3.4-5.0); ALBUMIN/GLOBULIN RATIO 0.5 (1.0-2.7); ALKALINE PHOSPHATASE 193 U/L (46-116); ANION GAP 3 mmol/L (5-15); ASPARTATE AMINO TRANSFERASE 28 U/L (15-37); BILIRUBIN,TOTAL 0.1 MG/DL (0.2-1.0); BLOOD UREA NITROGEN 34 mg/dL (7-18); CALCIUM 8.9 MG/DL (8.5-10.1); CARBON DIOXIDE 33 MMOL/L (21-32); CHLORIDE 101 MMOL/L (98-107); CREATININE 1.2 MG/DL (0.55-1.30); PHOSPHORUS 2.8 MG/DL (2.5-4.9); POTASSIUM 5.2 MMOL/L (3.5-5.1); SODIUM 137 MMOL/L (136-145)
--- NOTE | 2019-03-25 05:40 | NUR ---
NURSE NOTES: PATIENT ASLEEP STATUS, NO PAIN OR DISTRESS NOTED AT THIS TIME.
--- NOTE | 2019-03-25 06:25 | NUR ---
NURSE NOTES: NO ACUTE DISTRESS NOTED AT THIS SHIFT.
--- NOTE | 2019-03-25 07:16 | NUR ---
HAND-OFF: Report given to JEANNINE SOLANO.
--- NOTE | 2019-03-25 07:17 | NUR ---
NURSE NOTES: Received patient in bed. Asleep. Patient on 28% Cool Aerosol via T-Piece. Pt is trach-dependent w/ a cuffed, Shiley 6 XLT tube. With ongoing GTF per order. Right upper arm PICC line noted, dressing changed and dated 03/22/19. Bed side rails padded. Bed Alarm on. Contact isolation observed. Will continue plan of care.
--- NOTE | 2019-03-25 07:20 | NUR ---
NURSE NOTES: Tube feeding connected to J-tube, and G-tube connected to drainage bag by gravity. No tube feeding residuals at this time. Will continue to monitor.
--- NOTE | 2019-03-25 08:05 | NUR ---
NURSE NOTES: Dr. Beltrán at bedside. Informed regarding lab results today.
[2019-03-25] MEDS: levETIRAcetam 500mg/5ml Liquid GT SCH ×2 (08:13→20:45)
[2019-03-25] MEDS: Pantoprazole Inj IVP SCH (08:13)
[2019-03-25] MEDS: Bacitracin Oint 15gm Tube TOPIC SCH ×3 (08:14→17:41)
[2019-03-25] MEDS: Heparin 5000 units/ml inj SUBQ SCH ×2 (08:24→20:46)
--- NOTE | 2019-03-25 09:10 | NUR ---
NURSE NOTES: Dr. Cortez in the unit. Made aware of today's lab results. With no new order at this time.
--- NOTE | 2019-03-25 09:30 | General Progress Note ---
Assessment/Plan Problem List: (1) Seizure ICD Codes: R56.9 - Unspecified convulsions SNOMED: 89011738 (2) Anemia ICD Codes: D64.9 - Anemia, unspecified SNOMED: 341137223 Qualifiers: Qualified Codes: D64.9 - Anemia, unspecified (3) Sepsis ICD Codes: A41.9 - Sepsis, unspecified organism SNOMED: 71797668, 662982465 Qualifiers: Qualified Codes: A41.9 - Sepsis, unspecified organism (4) Respiratory failure with hypoxia ICD Codes: J96.91 - Respiratory failure, unspecified with hypoxia SNOMED: 65698122929247430 Qualifiers: Qualified Codes: J96.21 - Acute and chronic respiratory failure with hypoxia (5) HCAP (healthcare-associated pneumonia) ICD Codes: J18.9 - Pneumonia, unspecified organism SNOMED: 198196601, 675708742 (6) Sacral decubitus ulcer ICD Codes: L89.159 - Pressure ulcer of sacral region, unspecified stage SNOMED: 883774649 (7) HTN (hypertension) ICD Codes: I10 - Essential (primary) hypertension SNOMED: 16203322 (8) Chronic vegetative state ICD Codes: R40.3 - Persistent vegetative state SNOMED: 87346872 (9) Chronic respiratory failure ICD Codes: J96.10 - Chronic respiratory failure, unspecified whether with hypoxia or hypercapnia SNOMED: 02938524 (10) Limited mobility ICD Codes: Z74.09 - Other reduced mobility SNOMED: 6611309 Status: stable, progressing Assessment/Plan: vent as needed resp rx suctioning j tube feeds skin care sz rx monitor h/h dc planning Subjective ROS Limited/Unobtainable: Yes Constitutional: Reports: malaise, weakness HEENT: Reports: no symptoms Cardiovascular: Reports: no symptoms Respiratory: Reports: cough, shortness of breath, sputum Gastrointestinal/Abdominal: Reports: difficulty swallowing Genitourinary: Reports: no symptoms Neurologic/Psychiatric: Reports: pre-existing deficit, seizure Endocrine: Reports: no symptoms Hematologic/Lymphatic: Reports: anemia Allergies: Coded Allergies: CODEINE (Verified Allergy, Unknown, HIVES, 09/15/09) All Systems: reviewed and negative except above Subjective s/p j tube placement. tolerating feeds so far. no fevers. no vomiting. Objective Last 24 Hour Vital Signs Date Time Temp Pulse Resp B/P (MAP) Pulse Ox O2 Delivery O2 Flow Rate FiO2 03/25/19 09:00 87 19 124/63 (83) 98 03/25/19 08:00 98.8 89 22 127/50 (75) 98 03/25/19 08:00 T-piece 6.0 T-piece 6.0 03/25/19 08:00 6.0 28 03/25/19 07:53 88 03/25/19 07:05 84 21 100 T-Piece 5.0 28 81 19 100 03/25/19 07:00 116 19 139/64 (89) 99 03/25/19 06:55 81 19 100 T-Piece 5.0 28 03/25/19 06:55 100 T-Piece 5.0 28 03/25/19 06:00 80 19 141/58 (85) 100 03/25/19 05:00 104 22 152/63 (92) 98 03/25/19 04:00 6.0 28 03/25/19 04:00 107 03/25/19 04:00 98.6 107 24 146/65 (92) 100 03/25/19 04:00 T-piece 6.0 T-piece 6.0 03/25/19 03:41 83 22 100 T-Piece 5.0 28 03/25/19 03:31 85 22 100 T-Piece 5.0 28 03/25/19 03:00 75 21 108/58 (75) 100 03/25/19 02:00 81 22 101/51 (68) 99 03/25/19 01:00 83 23 132/62 (85) 100 03/25/19 00:50 100 T-Piece 5.0 28 03/25/19 00:00 98.6 78 23 120/60 (80) 99 03/25/19 00:00 78 03/25/19 00:00 6.0 28 03/25/19 00:00 T-piece 6.0 T-piece 6.0 03/24/19 23:44 86 21 100 T-Piece 5.0 28 03/24/19 23:34 82 17 100 T-Piece 5.0 28 03/24/19 23:00 90 21 125/61 (82) 98 03/24/19 22:00 81 23 129/99 (109) 99 03/24/19 21:00 82 24 93/47 (62) 100 03/24/19 20:00 T-piece 6.0 T-piece 6.0 03/24/19 20:00 98.4 77 22 133/52 (79) 99 03/24/19 20:00 77 03/24/19 20:00 6.0 28 03/24/19 19:40 80 24 100 T-Piece 5.0 28 03/24/19 19:30 81 21 100 T-Piece 5.0 28 03/24/19 19:30 100 T-Piece 5.0 28 03/24/19 19:00 100 24 132/66 (88) 98 03/24/19 18:00 96 21 138/90 (106) 100 03/24/19 17:00 88 19 109/85 (93) 100 03/24/19 16:00 97.6 77 22 127/58 (81) 100 03/24/19 16:00 6.0 28 03/24/19 16:00 T-piece 6.0 T-piece 6.0 03/24/19 16:00 81 03/24/19 15:45 84 22 100 T-Piece 5.0 28 80 22 100 03/24/19 15:00 83 23 100/47 (64) 100 03/24/19 14:00 83 22 104/40 (61) 100 03/24/19 13:06 100 T-Piece 5.0 28 03/24/19 13:00 81 24 123/50 (74) 100 03/24/19 12:00 83 03/24/19 12:00 6.0 28 03/24/19 12:00 T-piece 6.0 T-piece 6.0 03/24/19 12:00 97.8 83 21 137/50 (79) 100 03/24/19 11:15 90 20 100 T-Piece 5.0 28 86 20 100 03/24/19 11:00 87 23 144/71 (95) 100 03/24/19 10:00 81 23 147/59 (88) 100 Intake and Output 03/24/19 03/25/19 19:00 07:00 Intake Total 890 ml 840 ml Output Total 510 ml 400 ml Balance 380 ml 440 ml Free Water 290 ml 120 ml Tube Feeding 600 ml 600 ml Other 120 ml Output Urine Total 420 ml 400 ml Gastric Drainage Total 90 ml # Bowel Movements 1 Laboratory Tests 03/25/19 04:10: White Blood Count 12.7H, Red Blood Count 3.15L, Hemoglobin 9.2L, Hematocrit 27.2L, Mean Corpuscular Volume 86, Mean Corpuscular Hemoglobin 29.1, Mean Corpuscular Hemoglobin Concent 33.8, Red Cell Distribution Width 16.4H, Platelet Count 279, Mean Platelet Volume 5.9L, Neutrophils (%) (Auto) 49.0, Lymphocytes (%) (Auto) 38.8, Monocytes (%) (Auto) 5.5, Eosinophils (%) (Auto) 6.1H, Basophils (%) (Auto) 0.7, Sodium Level 137, Potassium Level 5.2H, Chloride Level 101, Carbon Dioxide Level 33H, Anion Gap 3L, Blood Urea Nitrogen 34H, Creatinine 1.2, Estimat Glomerular Filtration Rate , Glucose Level 102, Uric Acid 5.0, Calcium Level 8.9, Phosphorus Level 2.8, Magnesium Level 2.2, Total Bilirubin 0.1L, Aspartate Amino Transf (AST/SGOT) 28, Alanine Aminotransferase (ALT/SGPT) 36, Alkaline Phosphatase 193H, C-Reactive Protein, Quantitative 1.1H, Pro-B-Type Natriuretic Peptide 84, Total Protein 8.5H, Albumin 2.8L, Globulin 5.7, Albumin/Globulin Ratio 0.5L Height (Feet): 5 Height (Inches): 4.00 Weight (Pounds): 116 Objective General Appearance: WD/WN, confused. on trach collar Neck: supple Cardiovascular: normal rate, regular rhythm Respiratory/Chest: chest wall non-tender, rhonchi - bilaterally(minimal) Abdomen: normal bowel sounds, non tender, soft, no organomegaly Edema: no edema noted Arm (L), no edema noted Arm (R), no edema noted Leg (L), no edema noted Leg (R), no edema noted Pedal (L), no edema noted Pedal (R), no edema noted Generalized Neurologic: disoriented, unresponsive, aphasia Irvin Beltrán MD Mar 25, 2019 09:30
--- NOTE | 2019-03-25 09:41 | General Progress Note ---
Assessment/Plan Status: stable, progressing Assessment/Plan: Assessment - N/V - resolved with G --> J conversion - now tolerating TF at goal - suction gently - Elevated Alk phos / LFT - CT negative - abd U/S negative - check hepatitis serologies - negative - Anemia with OB (-) stools - Resp failure, s/p Trach - dysphagia, s/p PEG --> s/p GT change--> GJ tube - OBS, vegetative unresponsive state, bedbound state, contracted extremities, - minor GT tract inflammation / infection - treat locally - poor Prognosis Recommendations - laxative PRN - antibiotic ointment to GJT site PRN - aspiration precautions - elevate HOB - continue TF Subjective Allergies: Coded Allergies: CODEINE (Verified Allergy, Unknown, HIVES, 09/15/09) Subjective seen in am tolerating TF d/w RN Objective Last 24 Hour Vital Signs Date Time Temp Pulse Resp B/P (MAP) Pulse Ox O2 Delivery O2 Flow Rate FiO2 03/25/19 09:00 87 19 124/63 (83) 98 03/25/19 08:00 98.8 89 22 127/50 (75) 98 03/25/19 08:00 T-piece 6.0 T-piece 6.0 03/25/19 08:00 6.0 28 03/25/19 07:53 88 03/25/19 07:05 84 21 100 T-Piece 5.0 28 81 19 100 03/25/19 07:00 116 19 139/64 (89) 99 03/25/19 06:55 81 19 100 T-Piece 5.0 28 03/25/19 06:55 100 T-Piece 5.0 28 03/25/19 06:00 80 19 141/58 (85) 100 03/25/19 05:00 104 22 152/63 (92) 98 03/25/19 04:00 6.0 28 03/25/19 04:00 107 03/25/19 04:00 98.6 107 24 146/65 (92) 100 03/25/19 04:00 T-piece 6.0 T-piece 6.0 03/25/19 03:41 83 22 100 T-Piece 5.0 28 03/25/19 03:31 85 22 100 T-Piece 5.0 28 03/25/19 03:00 75 21 108/58 (75) 100 03/25/19 02:00 81 22 101/51 (68) 99 03/25/19 01:00 83 23 132/62 (85) 100 03/25/19 00:50 100 T-Piece 5.0 28 03/25/19 00:00 98.6 78 23 120/60 (80) 99 03/25/19 00:00 78 03/25/19 00:00 6.0 28 03/25/19 00:00 T-piece 6.0 T-piece 6.0 03/24/19 23:44 86 21 100 T-Piece 5.0 28 03/24/19 23:34 82 17 100 T-Piece 5.0 28 03/24/19 23:00 90 21 125/61 (82) 98 03/24/19 22:00 81 23 129/99 (109) 99 03/24/19 21:00 82 24 93/47 (62) 100 03/24/19 20:00 T-piece 6.0 T-piece 6.0 03/24/19 20:00 98.4 77 22 133/52 (79) 99 03/24/19 20:00 77 03/24/19 20:00 6.0 28 03/24/19 19:40 80 24 100 T-Piece 5.0 28 03/24/19 19:30 81 21 100 T-Piece 5.0 28 03/24/19 19:30 100 T-Piece 5.0 28 03/24/19 19:00 100 24 132/66 (88) 98 03/24/19 18:00 96 21 138/90 (106) 100 03/24/19 17:00 88 19 109/85 (93) 100 03/24/19 16:00 97.6 77 22 127/58 (81) 100 03/24/19 16:00 6.0 28 03/24/19 16:00 T-piece 6.0 T-piece 6.0 03/24/19 16:00 81 03/24/19 15:45 84 22 100 T-Piece 5.0 28 80 22 100 03/24/19 15:00 83 23 100/47 (64) 100 03/24/19 14:00 83 22 104/40 (61) 100 03/24/19 13:06 100 T-Piece 5.0 28 03/24/19 13:00 81 24 123/50 (74) 100 03/24/19 12:00 83 03/24/19 12:00 6.0 28 03/24/19 12:00 T-piece 6.0 T-piece 6.0 03/24/19 12:00 97.8 83 21 137/50 (79) 100 03/24/19 11:15 90 20 100 T-Piece 5.0 28 86 20 100 03/24/19 11:00 87 23 144/71 (95) 100 03/24/19 10:00 81 23 147/59 (88) 100 Intake and Output 03/24/19 03/25/19 19:00 07:00 Intake Total 890 ml 840 ml Output Total 510 ml 400 ml Balance 380 ml 440 ml Free Water 290 ml 120 ml Tube Feeding 600 ml 600 ml Other 120 ml Output Urine Total 420 ml 400 ml Gastric Drainage Total 90 ml # Bowel Movements 1 Laboratory Tests 03/25/19 04:10: White Blood Count 12.7H, Red Blood Count 3.15L, Hemoglobin 9.2L, Hematocrit 27.2L, Mean Corpuscular Volume 86, Mean Corpuscular Hemoglobin 29.1, Mean Corpuscular Hemoglobin Concent 33.8, Red Cell Distribution Width 16.4H, Platelet Count 279, Mean Platelet Volume 5.9L, Neutrophils (%) (Auto) 49.0, Lymphocytes (%) (Auto) 38.8, Monocytes (%) (Auto) 5.5, Eosinophils (%) (Auto) 6.1H, Basophils (%) (Auto) 0.7, Sodium Level 137, Potassium Level 5.2H, Chloride Level 101, Carbon Dioxide Level 33H, Anion Gap 3L, Blood Urea Nitrogen 34H, Creatinine 1.2, Estimat Glomerular Filtration Rate , Glucose Level 102, Uric Acid 5.0, Calcium Level 8.9, Phosphorus Level 2.8, Magnesium Level 2.2, Total Bilirubin 0.1L, Aspartate Amino Transf (AST/SGOT) 28, Alanine Aminotransferase (ALT/SGPT) 36, Alkaline Phosphatase 193H, C-Reactive Protein, Quantitative 1.1H, Pro-B-Type Natriuretic Peptide 84, Total Protein 8.5H, Albumin 2.8L, Globulin 5.7, Albumin/Globulin Ratio 0.5L Height (Feet): 5 Height (Inches): 4.00 Weight (Pounds): 116 Objective Debilitated AA woman non-verbal NCAT (+) trach coarse ronchi RR obese abd, (+) GJT no edema (+) contractured extremities Celio Vaughan MD Mar 25, 2019 09:40
--- NOTE | 2019-03-25 10:43 | Infectious Diseases Prog Note ---
"Assessment/Plan Assessment/Plan antibiotics : none A 1. klebsiella | providencia pneumonia s/p rx 2. respiratory failure 3. hypertension 4. CVA 5. dementia 6. sacral decubitus ulcer 7. rectal VRE colonization P 1. observe off antibiotics 2. dc planned Subjective ROS Limited/Unobtainable: Yes Allergies: Coded Allergies: CODEINE (Verified Allergy, Unknown, HIVES, 09/15/09) Objective Vital Signs Last 24 Hour Vital Signs Date Time Temp Pulse Resp B/P (MAP) Pulse Ox O2 Delivery O2 Flow Rate FiO2 03/25/19 10:00 88 19 126/63 (84) 98 03/25/19 09:00 87 19 124/63 (83) 98 03/25/19 08:00 98.8 89 22 127/50 (75) 98 03/25/19 08:00 T-piece 6.0 T-piece 6.0 03/25/19 08:00 6.0 28 03/25/19 07:53 88 03/25/19 07:05 84 21 100 T-Piece 5.0 28 81 19 100 03/25/19 07:00 116 19 139/64 (89) 99 03/25/19 06:55 81 19 100 T-Piece 5.0 28 03/25/19 06:55 100 T-Piece 5.0 28 03/25/19 06:00 80 19 141/58 (85) 100 03/25/19 05:00 104 22 152/63 (92) 98 03/25/19 04:00 6.0 28 03/25/19 04:00 107 03/25/19 04:00 98.6 107 24 146/65 (92) 100 03/25/19 04:00 T-piece 6.0 T-piece 6.0 03/25/19 03:41 83 22 100 T-Piece 5.0 28 03/25/19 03:31 85 22 100 T-Piece 5.0 28 03/25/19 03:00 75 21 108/58 (75) 100 03/25/19 02:00 81 22 101/51 (68) 99 03/25/19 01:00 83 23 132/62 (85) 100 03/25/19 00:50 100 T-Piece 5.0 28 03/25/19 00:00 98.6 78 23 120/60 (80) 99 03/25/19 00:00 78 03/25/19 00:00 6.0 28 03/25/19 00:00 T-piece 6.0 T-piece 6.0 03/24/19 23:44 86 21 100 T-Piece 5.0 28 03/24/19 23:34 82 17 100 T-Piece 5.0 28 03/24/19 23:00 90 21 125/61 (82) 98 03/24/19 22:00 81 23 129/99 (109) 99 03/24/19 21:00 82 24 93/47 (62) 100 03/24/19 20:00 T-piece 6.0 T-piece 6.0 03/24/19 20:00 98.4 77 22 133/52 (79) 99 03/24/19 20:00 77 03/24/19 20:00 6.0 28 03/24/19 19:40 80 24 100 T-Piece 5.0 28 03/24/19 19:30 81 21 100 T-Piece 5.0 28 03/24/19 19:30 100 T-Piece 5.0 28 03/24/19 19:00 100 24 132/66 (88) 98 03/24/19 18:00 96 21 138/90 (106) 100 03/24/19 17:00 88 19 109/85 (93) 100 03/24/19 16:00 97.6 77 22 127/58 (81) 100 03/24/19 16:00 6.0 28 03/24/19 16:00 T-piece 6.0 T-piece 6.0 03/24/19 16:00 81 03/24/19 15:45 84 22 100 T-Piece 5.0 28 80 22 100 03/24/19 15:00 83 23 100/47 (64) 100 03/24/19 14:00 83 22 104/40 (61) 100 03/24/19 13:06 100 T-Piece 5.0 28 03/24/19 13:00 81 24 123/50 (74) 100 03/24/19 12:00 83 03/24/19 12:00 6.0 28 03/24/19 12:00 T-piece 6.0 T-piece 6.0 03/24/19 12:00 97.8 83 21 137/50 (79) 100 03/24/19 11:15 90 20 100 T-Piece 5.0 28 86 20 100 03/24/19 11:00 87 23 144/71 (95) 100 Height (Feet): 5 Height (Inches): 4.00 Weight (Pounds): 116 HEENT: status post trach Respiratory/Chest: lungs clear Cardiovascular: normal rate, regular rhythm, no gallop/murmur Abdomen: soft, non tender, other - GT Extremities: no edema, other - right arm PICC Laboratory Tests Test 03/25/19 04:10 White Blood Count 12.7 K/UL (4.8-10.8) H Red Blood Count 3.15 M/UL (4.20-5.40) L Hemoglobin 9.2 G/DL (12.0-16.0) L Hematocrit 27.2 % (37.0-47.0) L Mean Corpuscular Volume 86 FL (80-99) Mean Corpuscular Hemoglobin 29.1 PG (27.0-31.0) Mean Corpuscular Hemoglobin Concent 33.8 G/DL (32.0-36.0) Red Cell Distribution Width 16.4 % (11.6-14.8) H Platelet Count 279 K/UL (150-450) Mean Platelet Volume 5.9 FL (6.5-10.1) L Neutrophils (%) (Auto) 49.0 % (45.0-75.0) Lymphocytes (%) (Auto) 38.8 % (20.0-45.0) Monocytes (%) (Auto) 5.5 % (1.0-10.0) Eosinophils (%) (Auto) 6.1 % (0.0-3.0) H Basophils (%) (Auto) 0.7 % (0.0-2.0) Sodium Level 137 MMOL/L (136-145) Potassium Level 5.2 MMOL/L (3.5-5.1) H Chloride Level 101 MMOL/L (98-107) Carbon Dioxide Level 33 MMOL/L (21-32) H Anion Gap 3 mmol/L (5-15) L Blood Urea Nitrogen 34 mg/dL (7-18) H Creatinine 1.2 MG/DL (0.55-1.30) Estimat Glomerular Filtration Rate mL/min (>60) Glucose Level 102 MG/DL (74-106) Uric Acid 5.0 MG/DL (2.6-7.2) Calcium Level 8.9 MG/DL (8.5-10.1) Phosphorus Level 2.8 MG/DL (2.5-4.9) Magnesium Level 2.2 MG/DL (1.8-2.4) Total Bilirubin 0.1 MG/DL (0.2-1.0) L Aspartate Amino Transf (AST/SGOT) 28 U/L (15-37) Alanine Aminotransferase (ALT/SGPT) 36 U/L (12-78) Alkaline Phosphatase 193 U/L (46-116) H C-Reactive Protein, Quantitative 1.1 mg/dL (0.00-0.90) H Pro-B-Type Natriuretic Peptide 84 pg/mL (0-125) Total Protein 8.5 G/DL (6.4-8.2) H Albumin 2.8 G/DL (3.4-5.0) L Globulin 5.7 g/dL Albumin/Globulin Ratio 0.5 (1.0-2.7) L Current Medications Medications (Trade) Dose Ordered Sig/Maicol Route PRN Reason Start Time Stop Time Status Last Admin Dose Admin Acetaminophen (Tylenol) 650 mg Q6H PRN GT Mild Pain/Temp > 100.5 03/23/19 15:15 04/22/19 15:14 03/23/19 19:09 Albuterol/ Ipratropium (Albuterol/ Ipratropium) 3 ml Q4HRT HHN 03/25/19 11:00 03/30/19 10:59 UNV Atropine Sulfate (Atropine Opth Adriana) 2 drop TID SL 03/07/19 09:00 04/06/19 08:59 03/25/19 08:14 Bacitracin (Bacitracin 15gm tube) 1 applic THREE TIMES A DAY TOPIC 02/28/19 18:30 03/30/19 18:29 03/25/19 08:14 Chlorhexidine Gluconate (Cesilia-Hex 2%) 1 applic DAILY@1999 TOPIC 03/12/19 20:00 04/11/19 19:59 03/24/19 19:43 Heparin Sodium (Porcine) (Heparin 5000 units/ml) 5,000 units EVERY 12 HOURS SUBQ 03/22/19 21:00 03/31/19 23:14 03/25/19 08:24 Hydralazine HCl (Apresoline) 10 mg Q4H PRN IV For High Blood Pressure 03/12/19 09:00 04/11/19 08:59 03/18/19 18:17 Levetiracetam (Keppra) 750 mg Q12HR GT 03/22/19 21:00 03/31/19 23:29 03/25/19 08:13 Lorazepam (Ativan 2mg/ml 1ml) 0.5 mg Q2H PRN IV For Seizures 03/23/19 15:15 03/30/19 15:14 Metoclopramide HCl (Reglan) 5 mg Q6H IVP 03/24/19 20:00 04/23/19 19:59 03/25/19 08:13 Ondansetron HCl (Zofran) 4 mg Q4H PRN IVP Nausea & Vomiting 03/18/19 18:15 04/17/19 18:14 03/21/19 08:27 Pantoprazole (Protonix) 40 mg EVERY 12 HOURS IVP 03/20/19 21:00 04/19/19 20:59 03/25/19 08:13 Geovany Yang MD Mar 25, 2019 10:43"
--- NOTE | 2019-03-25 11:20 | Nephrology Progress Note ---
Assessment/Plan Problem List: (1) Acute renal failure (ARF) Assessment: Cr stable (2) Chronic respiratory failure (3) Anemia (4) Sepsis Assessment Acute renal failure Respiratory failure - Trach Low Mag- Low k , Low Na Anemia UTI / Sepsis Proteinuria / HypoAlbuminemia high Trigs Sz decubs bed bound DNR Plan Hold KCL now has JT bolus Albumin as needed K and Mag and Phos supplement as needed Hydrate as needed Urine studies avoid Nephrotoxics mag K Phos supplements as needed monitor renal parameters Subjective ROS Limited/Unobtainable: Yes Objective Objective Last 24 Hour Vital Signs Date Time Temp Pulse Resp B/P (MAP) Pulse Ox O2 Delivery O2 Flow Rate FiO2 03/25/19 11:00 85 24 127/64 (85) 98 03/25/19 10:00 88 19 126/63 (84) 98 03/25/19 09:00 87 19 124/63 (83) 98 03/25/19 08:00 98.8 89 22 127/50 (75) 98 03/25/19 08:00 T-piece 6.0 T-piece 6.0 03/25/19 08:00 6.0 28 03/25/19 07:53 88 03/25/19 07:05 84 21 100 T-Piece 5.0 28 81 19 100 03/25/19 07:00 116 19 139/64 (89) 99 03/25/19 06:55 81 19 100 T-Piece 5.0 28 03/25/19 06:55 100 T-Piece 5.0 28 03/25/19 06:00 80 19 141/58 (85) 100 03/25/19 05:00 104 22 152/63 (92) 98 03/25/19 04:00 6.0 28 03/25/19 04:00 107 03/25/19 04:00 98.6 107 24 146/65 (92) 100 03/25/19 04:00 T-piece 6.0 T-piece 6.0 03/25/19 03:41 83 22 100 T-Piece 5.0 28 03/25/19 03:31 85 22 100 T-Piece 5.0 28 03/25/19 03:00 75 21 108/58 (75) 100 03/25/19 02:00 81 22 101/51 (68) 99 03/25/19 01:00 83 23 132/62 (85) 100 03/25/19 00:50 100 T-Piece 5.0 28 03/25/19 00:00 98.6 78 23 120/60 (80) 99 03/25/19 00:00 78 03/25/19 00:00 6.0 28 03/25/19 00:00 T-piece 6.0 T-piece 6.0 03/24/19 23:44 86 21 100 T-Piece 5.0 28 03/24/19 23:34 82 17 100 T-Piece 5.0 28 03/24/19 23:00 90 21 125/61 (82) 98 03/24/19 22:00 81 23 129/99 (109) 99 03/24/19 21:00 82 24 93/47 (62) 100 03/24/19 20:00 T-piece 6.0 T-piece 6.0 03/24/19 20:00 98.4 77 22 133/52 (79) 99 03/24/19 20:00 77 03/24/19 20:00 6.0 28 03/24/19 19:40 80 24 100 T-Piece 5.0 28 03/24/19 19:30 81 21 100 T-Piece 5.0 28 03/24/19 19:30 100 T-Piece 5.0 28 03/24/19 19:00 100 24 132/66 (88) 98 03/24/19 18:00 96 21 138/90 (106) 100 03/24/19 17:00 88 19 109/85 (93) 100 03/24/19 16:00 97.6 77 22 127/58 (81) 100 03/24/19 16:00 6.0 28 03/24/19 16:00 T-piece 6.0 T-piece 6.0 03/24/19 16:00 81 03/24/19 15:45 84 22 100 T-Piece 5.0 28 80 22 100 03/24/19 15:00 83 23 100/47 (64) 100 03/24/19 14:00 83 22 104/40 (61) 100 03/24/19 13:06 100 T-Piece 5.0 28 03/24/19 13:00 81 24 123/50 (74) 100 03/24/19 12:00 83 12/24/19 12:00 6.0 28 03/24/19 12:00 T-piece 6.0 T-piece 6.0 03/24/19 12:00 97.8 83 21 137/50 (79) 100 Intake and Output 03/24/19 03/25/19 19:00 07:00 Intake Total 890 ml 840 ml Output Total 510 ml 400 ml Balance 380 ml 440 ml Free Water 290 ml 120 ml Tube Feeding 600 ml 600 ml Other 120 ml Output Urine Total 420 ml 400 ml Gastric Drainage Total 90 ml # Bowel Movements 1 Laboratory Tests 03/25/19 04:10: White Blood Count 12.7H, Red Blood Count 3.15L, Hemoglobin 9.2L, Hematocrit 27.2L, Mean Corpuscular Volume 86, Mean Corpuscular Hemoglobin 29.1, Mean Corpuscular Hemoglobin Concent 33.8, Red Cell Distribution Width 16.4H, Platelet Count 279, Mean Platelet Volume 5.9L, Neutrophils (%) (Auto) 49.0, Lymphocytes (%) (Auto) 38.8, Monocytes (%) (Auto) 5.5, Eosinophils (%) (Auto) 6.1H, Basophils (%) (Auto) 0.7, Sodium Level 137, Potassium Level 5.2H, Chloride Level 101, Carbon Dioxide Level 33H, Anion Gap 3L, Blood Urea Nitrogen 34H, Creatinine 1.2, Estimat Glomerular Filtration Rate , Glucose Level 102, Uric Acid 5.0, Calcium Level 8.9, Phosphorus Level 2.8, Magnesium Level 2.2, Total Bilirubin 0.1L, Aspartate Amino Transf (AST/SGOT) 28, Alanine Aminotransferase (ALT/SGPT) 36, Alkaline Phosphatase 193H, C-Reactive Protein, Quantitative 1.1H, Pro-B-Type Natriuretic Peptide 84, Total Protein 8.5H, Albumin 2.8L, Globulin 5.7, Albumin/Globulin Ratio 0.5L Height (Feet): 5 Height (Inches): 4.00 Weight (Pounds): 116 General Appearance: no apparent distress EENT: other - O2 Trach Cardiovascular: tachycardia Respiratory/Chest: decreased breath sounds Abdomen: distended Objective no change Eric Cortez MD Mar 25, 2019 11:20
--- NOTE | 2019-03-25 16:34 | Pulmonolgy Critical Care Note ---
Critical Care - Asmt/Plan Assessment/Plan: Pulmonary CCM Progress Note Assessment/Plan Impression: Sepsis syndrome Pneumonia, KPC VDRF, Trach, G tube, Hypertension, Cardiac disease, Dementia, Previous CVA, Seizure disorder, Respiratory failure with hypoxia, on TC Anemia Sacral ulcer renal cyst pulmonary congestion Plan respiratory care to continue as is, TC as tolerated atropine neb therapy SNF meds as is off vent as able and has been off for several day Oxygen as needed Monitor labs daily changes noted and reviewed feeds as tolerated monitor albumin levels and provide protein and nutrition elevate head aspiration precautions Patient is a DNR. No CPR. ICU care reviewed medications/laboratory data/nursing notes/ICU care reviewed in detail note reviewed and edited care discussed with RN and RT ICU time spent 45 minutes Subjective Allergies: Coded Allergies: CODEINE (Verified Allergy, Unknown, HIVES, 09/15/09) Subjective respiratory care noted congestion- improved with atropine ICU care reviewed supportive care noted and reviewed RT care reviewed overnight care noted findings reviewed and discussed in detail with nursing and RT seen earlier this am Objective Vital Signs Noted Objective WDWN NAD contracted off vent reduced breath sounds bilaterally with some rhonchi; no wheeze [id number] without MRG NABS nontender no HSM no CC minimal nonfocal nonverbal trach and gt reviewed and edited Laboratory Tests Noted Critical Care - Objective Last 24 Hour Vital Signs Date Time Temp Pulse Resp B/P (MAP) Pulse Ox O2 Delivery O2 Flow Rate FiO2 03/25/19 16:00 28 03/25/19 16:00 T-piece 6.0 T-piece 6.0 03/25/19 15:32 76 03/25/19 15:12 87 21 100 T-Piece 5.0 85 19 100 03/25/19 15:00 76 23 130/63 (85) 100 03/25/19 14:00 92 25 117/62 (80) 100 03/25/19 14:00 90 23 117/62 (80) 100 03/25/19 13:00 94 23 93/60 (71) 98 03/25/19 12:48 97 T-Piece 5.0 28 03/25/19 12:03 93 03/25/19 12:00 28 03/25/19 12:00 98.8 92 24 115/61 (79) 99 03/25/19 12:00 T-piece 6.0 T-piece 6.0 03/25/19 11:28 83 23 100 T-Piece 5.0 28 84 17 98 03/25/19 11:00 85 24 127/64 (85) 98 03/25/19 10:00 88 19 126/63 (84) 98 03/25/19 09:00 87 19 124/63 (83) 98 03/25/19 08:00 98.8 89 22 127/50 (75) 98 03/25/19 08:00 T-piece 6.0 T-piece 6.0 03/25/19 08:00 6.0 28 03/25/19 07:53 88 03/25/19 07:05 84 21 100 T-Piece 5.0 28 81 19 100 03/25/19 07:00 116 19 139/64 (89) 99 03/25/19 06:55 81 19 100 T-Piece 5.0 28 03/25/19 06:55 100 T-Piece 5.0 28 03/25/19 06:00 80 19 141/58 (85) 100 03/25/19 05:00 104 22 152/63 (92) 98 03/25/19 04:00 6.0 28 03/25/19 04:00 107 03/25/19 04:00 98.6 107 24 146/65 (92) 100 03/25/19 04:00 T-piece 6.0 T-piece 6.0 03/25/19 03:41 83 22 100 T-Piece 5.0 28 03/25/19 03:31 85 22 100 T-Piece 5.0 28 03/25/19 03:00 75 21 108/58 (75) 100 03/25/19 02:00 81 22 101/51 (68) 99 03/25/19 01:00 83 23 132/62 (85) 100 03/25/19 00:50 100 T-Piece 5.0 28 03/25/19 00:00 98.6 78 23 120/60 (80) 99 03/25/19 00:00 78 03/25/19 00:00 6.0 28 03/25/19 00:00 T-piece 6.0 T-piece 6.0 03/24/19 23:44 86 21 100 T-Piece 5.0 28 03/24/19 23:34 82 17 100 T-Piece 5.0 28 03/24/19 23:00 90 21 125/61 (82) 98 03/24/19 22:00 81 23 129/99 (109) 99 03/24/19 21:00 82 24 93/47 (62) 100 03/24/19 20:00 T-piece 6.0 T-piece 6.0 03/24/19 20:00 98.4 77 22 133/52 (79) 99 03/24/19 20:00 77 03/24/19 20:00 6.0 28 03/24/19 19:40 80 24 100 T-Piece 5.0 28 03/24/19 19:30 81 21 100 T-Piece 5.0 28 03/24/19 19:30 100 T-Piece 5.0 28 03/24/19 19:00 100 24 132/66 (88) 98 03/24/19 18:00 96 21 138/90 (106) 100 03/24/19 17:00 88 19 109/85 (93) 100 Critical Care - Subjective ROS Limited/Unobtainable: No FI02: 28 Vent Support Mode: CPAP Vent Tidal Volume: 450 Sputum Amount: Moderate PEEP: 5.0 PIP: 19 Tube Feeding Amount: 50 I&O: Intake and Output 03/24/19 03/25/19 19:00 07:00 Intake Total 890 ml 840 ml Output Total 510 ml 400 ml Balance 380 ml 440 ml Free Water 290 ml 120 ml Tube Feeding 600 ml 600 ml Other 120 ml Output Urine Total 420 ml 400 ml Gastric Drainage Total 90 ml # Bowel Movements 1 ET-Tube: 6.0 Bg Moffett MD Mar 25, 2019 16:34
--- NOTE | 2019-03-25 18:29 | Surgery Progress Note ---
Surgery Progress Note Subjective Additional Comments no acute events comfortable stable tolerating tube feeds Objective Last 24 Hour Vital Signs Date Time Temp Pulse Resp B/P (MAP) Pulse Ox O2 Delivery O2 Flow Rate FiO2 03/25/19 18:00 85 23 128/55 (79) 99 03/25/19 17:00 84 19 136/59 (84) 100 03/25/19 16:00 28 03/25/19 16:00 T-piece 6.0 T-piece 6.0 03/25/19 16:00 98.6 105 18 130/65 (86) 98 03/25/19 15:32 76 03/25/19 15:12 87 21 100 T-Piece 5.0 28 85 19 100 03/25/19 15:00 76 23 130/63 (85) 100 03/25/19 14:00 92 25 117/62 (80) 100 03/25/19 14:00 90 23 117/62 (80) 100 03/25/19 13:00 94 23 93/60 (71) 98 03/25/19 12:48 97 T-Piece 5.0 03/25/19 12:03 93 03/25/19 12:00 28 03/25/19 12:00 98.8 92 24 115/61 (79) 99 03/25/19 12:00 T-piece 6.0 T-piece 6.0 03/25/19 11:28 83 23 100 T-Piece 5.0 28 84 17 98 03/25/19 11:00 85 24 127/64 (85) 98 03/25/19 10:00 88 19 126/63 (84) 98 03/25/19 09:00 87 19 124/63 (83) 98 03/25/19 08:00 98.8 89 22 127/50 (75) 98 03/25/19 08:00 T-piece 6.0 T-piece 6.0 03/25/19 08:00 6.0 28 03/25/19 07:53 88 03/25/19 07:05 84 21 100 T-Piece 5.0 28 81 19 100 03/25/19 07:00 116 19 139/64 (89) 99 03/25/19 06:55 81 19 100 T-Piece 5.0 28 03/25/19 06:55 100 T-Piece 5.0 28 03/25/19 06:00 80 19 141/58 (85) 100 03/25/19 05:00 104 22 152/63 (92) 98 03/25/19 04:00 6.0 28 03/25/19 04:00 107 03/25/19 04:00 98.6 107 24 146/65 (92) 100 03/25/19 04:00 T-piece 6.0 T-piece 6.0 03/25/19 03:41 83 22 100 T-Piece 5.0 28 03/25/19 03:31 85 22 100 T-Piece 5.0 28 03/25/19 03:00 75 21 108/58 (75) 100 03/25/19 02:00 81 22 101/51 (68) 99 03/25/19 01:00 83 23 132/62 (85) 100 03/25/19 00:50 100 T-Piece 5.0 28 03/25/19 00:00 98.6 78 23 120/60 (80) 99 03/25/19 00:00 78 03/25/19 00:00 6.0 28 03/25/19 00:00 T-piece 6.0 T-piece 6.0 03/24/19 23:44 86 21 100 T-Piece 5.0 28 03/24/19 23:34 82 17 100 T-Piece 5.0 28 03/24/19 23:00 90 21 125/61 (82) 98 03/24/19 22:00 81 23 129/99 (109) 99 03/24/19 21:00 82 24 93/47 (62) 100 03/24/19 20:00 T-piece 6.0 T-piece 6.0 03/24/19 20:00 98.4 77 22 133/52 (79) 99 03/24/19 20:00 77 03/24/19 20:00 6.0 28 03/24/19 19:40 80 24 100 T-Piece 5.0 28 03/24/19 19:30 81 21 100 T-Piece 5.0 28 03/24/19 19:30 100 T-Piece 5.0 28 03/24/19 19:00 100 24 132/66 (88) 98 I&O Intake and Output 03/24/19 03/25/19 19:00 07:00 Intake Total 890 ml 840 ml Output Total 510 ml 400 ml Balance 380 ml 440 ml Free Water 290 ml 120 ml Tube Feeding 600 ml 600 ml Other 120 ml Output Urine Total 420 ml 400 ml Gastric Drainage Total 90 ml # Bowel Movements 1 Dressing: dry Wound: clean Cardiovascular: RSR Respiratory: clear, decreased breath sounds Abdomen: soft, present bowel sounds Extremities: no cyanosis, other Laboratory Tests Test 03/25/19 04:10 White Blood Count 12.7 K/UL (4.8-10.8) H Red Blood Count 3.15 M/UL (4.20-5.40) L Hemoglobin 9.2 G/DL (12.0-16.0) L Hematocrit 27.2 % (37.0-47.0) L Mean Corpuscular Volume 86 FL (80-99) Mean Corpuscular Hemoglobin 29.1 PG (27.0-31.0) Mean Corpuscular Hemoglobin Concent 33.8 G/DL (32.0-36.0) Red Cell Distribution Width 16.4 % (11.6-14.8) H Platelet Count 279 K/UL (150-450) Mean Platelet Volume 5.9 FL (6.5-10.1) L Neutrophils (%) (Auto) 49.0 % (45.0-75.0) Lymphocytes (%) (Auto) 38.8 % (20.0-45.0) Monocytes (%) (Auto) 5.5 % (1.0-10.0) Eosinophils (%) (Auto) 6.1 % (0.0-3.0) H Basophils (%) (Auto) 0.7 % (0.0-2.0) Sodium Level 137 MMOL/L (136-145) Potassium Level 5.2 MMOL/L (3.5-5.1) H Chloride Level 101 MMOL/L (98-107) Carbon Dioxide Level 33 MMOL/L (21-32) H Anion Gap 3 mmol/L (5-15) L Blood Urea Nitrogen 34 mg/dL (7-18) H Creatinine 1.2 MG/DL (0.55-1.30) Estimat Glomerular Filtration Rate mL/min (>60) Glucose Level 102 MG/DL (74-106) Uric Acid 5.0 MG/DL (2.6-7.2) Calcium Level 8.9 MG/DL (8.5-10.1) Phosphorus Level 2.8 MG/DL (2.5-4.9) Magnesium Level 2.2 MG/DL (1.8-2.4) Total Bilirubin 0.1 MG/DL (0.2-1.0) L Aspartate Amino Transf (AST/SGOT) 28 U/L (15-37) Alanine Aminotransferase (ALT/SGPT) 36 U/L (12-78) Alkaline Phosphatase 193 U/L (46-116) H C-Reactive Protein, Quantitative 1.1 mg/dL (0.00-0.90) H Pro-B-Type Natriuretic Peptide 84 pg/mL (0-125) Total Protein 8.5 G/DL (6.4-8.2) H Albumin 2.8 G/DL (3.4-5.0) L Globulin 5.7 g/dL Albumin/Globulin Ratio 0.5 (1.0-2.7) L Plan Problems: (1) Sacral decubitus ulcer Assessment & Plan: This is a 83-year-old female with multiple medical committees that is currently admitted for medical care and management and identified to have multiple wounds requiring care. On admission patient noted to have a resolved sacral decubitus ulcer. Has had prior care and is well-healed at this time. Will ensure it does not open up again. Patient has a right ischial decubitus ulcer that is resolved. Scar intact and well formed. Will monitor to ensure it does not open up again. Patient has a left ischial decubitus ulcer that can be identified to be stage IV with palpable bone that has been resolving as noted by the periwound tissue and scar but open area approximately 1 cm x 1.5 cm few millimeters deep to bone identified. Unsure if this is been to be completely healed prior and has since opened or if has been healing at this level. No foul odor no drainage was unsure local wound care until healed Bilateral heels soft without signs of injury Resolving pressure injury L ischium(L)1.8cm x (W)1cm.Scattered biofilm at base of wound. Edges flat and adherent with surrounding hyperpigmentation. No odor or exudate noted. Sacrum is pale pink with surrounding hyperpigmentation. Hyperpigmentation R ischium with small sheared area centrally.No areas of erythema or exudate noted. Both heels are soft but blanchable. Skin Assessed under collar of trach and no evidence of skin breakdown noted. All wound Tx. are effective and continued as ordered. Pt ahs an APM/Belén mattress overlay and is being repositioned per protocols and per tolerance.No new skin concerns noted. Full thickness pressure injury L Ischium with small amt biofilm (L)1.8cm x (W) 1cm. Surrounding pink hyperpigmentation. No odor or exudate noted. Boutte hyperpigmentation from previous wound noted to sacrum. Pt also noted to have Cat 2 Skin Tear dorsal L hand, L 5th metatarsal extending into palm of hand. 80% skin flap in situ.Both heels are dry firm and blanchable. No other skin concerns noted. R ischial wound has resolved. Boutte epithelial with surrounding hyperpigmentation. from historical wound. Full thickness pressure injury L ischium. Boutte granulation at base of wound. Borders are macerated with Surrounding hyperpigmentation.Small amt non-odorous serous exudate noted.(L)0.7cm x (W)0.8cm. Skin hyperpigmentation from historical wound noted to Sacrum. Small sheared area noted to sacrococcygeal area.(L)0.4cm x (W)0.3cm.Small amt sanguineous exudate noted. Reabsorbed blister with semi-detached dry necrotic cap noted to web space of L thumb and L index fingers extending into palm of L hand. No odor or exudate noted. Skin assessed under tracheal collar and no erythema or evidence of Skin Breakdown noted. NO new skin concerns noted . Good hand hygiene provided to both hands. R hand contracted and fisted. Fingernails trimmed. Wound care provided along with Primary nurse. Wound Tx continued as ordered. New order obtained from to apply Betadine to wound L hand Daily. Tx done as ordered. L hand wrapped with kerlix weaving kerlix between fingers to separate fingers. Moisture Barrier applied to sacrum ,R ischium. Each site covered with Optifoam drsg. Both lower ext washed and moisturized. Cavilon Skin Barrier applied to both heels.Each heel covered with Optifoam drsgs. Pt positioned with pillows and both heels off-loaded with pillow. Tx.Plan: Apply Betadine to wound L hand. Cover with Gauze and wrap with Kerlix Daily and prn. Cleanse L ischial wound with Saline. Apply Therahoney. Apply Moisture Barrier periwound. Cover with Optifoam drsgevery 3 days and prn. Apply Moisture Barrier Paste to R ischium and Sacrum. Cover each area with Optifoam drsg. Change every 3 days and prn. Apply Cavilon Skin Barrier to both heels. Cover each heel with Optifoam drsg. Change every 7 days and prn. APM/BELÉN Mattress overlay. Reposition at least every 2hours or as tolerated. Off-load heels with pillow. Cleanse Blister Dorsal and palm of L hand with saline. Versatel One Silicone Contact Layer(Applied). Apply Silvasorb Gel. Wrap with Kerlix Gauze.Change every 7 days and prn. Apply Moisture Barrier to sacrum. Cover with Optifoam drsg. Change every 3 days and prn. Cleanse L ischial wound with saline. Apply Therahoney. Apply Moisture Barrier Paste periwound. Cover with Optifoam drsg. Change every 3 days and prn. Apply Cavilon Skin Barrier to both heels. Cover each heel with Optifoam drsg. Change every 7 days and prn. APM/BELÉN Mattress overlay. Reposition at least every 2hours or as tolerated. Off-load heels with pillow. Nutritional optimization We will monitor follow with recommendations cont with above upon d/c (2) Sepsis Assessment & Plan: IV abx as per ID trend labs improving wounds unlikely etiology likely respiratory imaging noted and okay abnormal lft's stable PICC on Abx in ICU for desaturation CXR with consolidation cont with frequent suctioning d/c planning possible placement found Evidence of left lower lobe pneumonia, also previously demonstrated Gastrostomy in good position Mild diastasis of the rectus abdominis musculature again demonstrated Retrosacral decubitus changes, better depicted on prior exam which included the pelvis Small hiatal hernia with evidence of trace gastroesophageal reflux Discussed with GI. Recommend GJ family still pending decision (3) Feeding by G-tube Assessment & Plan: DAILY ESTIMATED NEEDS: Needs based on Pulmonary, wounds, bedbound/ 61kg adj 25-30 kcals/kg 1142-9715 total kcals 1.25-2 g protein/kg 76-122 g total protein 25-30 mL/kg 1725-3323 total fluid mLs NUTRITION DIAGNOSIS: * Increased kcal/prot needs R/T wound healing as evidenced by BL buttocks and sacral wound photos, refer to WC eval. * Swallowing difficulty R/T respiratory status as evidenced by pt on T-collar, now back the vent, PEG dep. CURRENT TF:Glucerna 1.5 @ 25ml/hr x 24 hrs - currently HELD d/t emesis ENTERAL NUTRITION RECOMMENDATIONS: Glucerna 1.5 @ 45ml/hr x 24 hrs to provide 1080ml, 1620kcal, 89g prot, 820ml free water - As medically able, rec to increase goal rate to 45ml/hr x24 hrs to meet 100% est kcal/prot needs - HOB over 30 degrees - Water flush of 170ml q 6 hrs * W/ continued regurgitation/ emesis, rec Osmolite 1.5 for GI tolerance. Rec goal of 45ml/hr to provide: 1080ml, 1620 kcal, 68g pro, 823ml free H20. * Add Prosource 1 pack daily to provide additional 11g pro. ADDITIONAL RECOMMENDATIONS: 1) Weekly weights 2) Wound healing: Add Cristian 1pkt BID w/ good TF tolerance + MVI x1 daily 3) Monitor lytes, replete as needed 4) Monitor BGs closely, need for NISS (wnl) 5) Monitor TF tolerance: rec Tf change as above if not (4) Chronic vegetative state Assessment & Plan: incontinence of urine and stool. can soil dressings. nurses doing great job with monitoring and changing prn (5) Leukocytosis Walter Madera Mar 25, 2019 18:29
--- NOTE | 2019-03-25 19:06 | NUR ---
HAND-OFF: Report given to Onel Iraheta RN. Patient's daughter at bedside. And she verbalized that she didn't agreed yet to have her mom be discharge to [facility]. JEANNINE Sykes witnessed.
[2019-03-25] MEDS: Dyna-Hex 2% Top Sol 2oz TOPIC SCH (19:39)
--- NOTE | 2019-03-25 19:45 | NUR ---
NURSE NOTES:LATE ENTRY PT'S DAUGHTER STAYED AT BEDSIDE. PATIENT OPEN EYES, UNABLE TO EYE CONTACT, DID NOT FOLLOW COMMANDS, RESPIRATION REGULAR, ON TRACH, FIO2 28% COOL AEROSOL T- PIECE, O2 SATURATION 100% NOTED, ABDOMEN SOFT, NO BM STATUS, G-J TUBE INTACT AND PATENT, G TUBE DRAINING GRAVITY, ONGOING J TUBE FEEDING, GLUCERNA 1.5 AT 50ML/HR, TOLERATED FEEDING, NO N/V NOTED, KEPT HOB 30 DEGREES AND ASPIRATION PRECAUTION, VOID WITH PURE WICK, YELLOW URINE OUTED, PICC LINE TO RIGHT UPPER ARM, INTACT AND PATENT, KEPT SZ AND FALL PRECAUTION, ON P200 BED, MADE LOWER BED POSITION, ON BED ALARM AND LOCKED, PROVIDED CALL LIGHT WITHIN REACH BUT UNABLE TO USE STATUS, WILL CONTINUE TO MONITOR.
--- NOTE | 2019-03-25 20:16 | NUR ---
NURSE NOTES: PT'S DAUGHTER LEFT.
--- NOTE | 2019-03-25 22:21 | NUR ---
NURSE NOTES: ORAL CARE WAS DONE, WHITISH CLEAR SECRETION OUTED VIA TRACH.
[2019-03-26] VITALS (24 sets, daily range): BP systolic 89–158; BP diastolic 47–105
--- NOTE | 2019-03-26 00:31 | NUR ---
NURSE NOTES: PATIENT SLEEPING STATUS, NO PAIN OR SOB NOTED.
[2019-03-26] MEDS: Metoclopramide 10mg/2ml Inj IVP SCH ×4 (01:36→19:48)
--- NOTE | 2019-03-26 02:39 | NUR ---
NURSE NOTES: NO ACUTE DISTRESS NOTED AT THIS TIME.
[2019-03-26] MEDS: Albuterol/Ipratropium 3ml neb HHN SCH ×6 (03:11→22:57)
--- NOTE | 2019-03-26 05:00 | NUR ---
NURSE NOTES: MORNING CARE AND ORAL CARE WAS DONE, NO BOWEL MOVEMENT.
--- NOTE | 2019-03-26 06:25 | NUR ---
NURSE NOTES: NO ACUTE DISTRESS NOTED AT THIS SHIFT.
--- NOTE | 2019-03-26 07:16 | NUR ---
HAND-OFF: Report given to JEANNINE SINGLETON.
--- NOTE | 2019-03-26 07:17 | NUR ---
NURSE NOTES: Received report from JEANNINE Sykes. Patient observed laying in bed, asleep, opens eyes spontaneously but does not track, does not follow commands. Patient on 28% Cool Aerosol via T-Piece. Pt has a trach- Shiley 6.0 XLT. Tube feeding, Glucerna 1.5 @ 50mL/hr, connected to J-tube, and G-tube draining by gravity into drainage bag. Right upper arm PICC line noted, dressing changed and dated 03/22. White thick secretions orally suctioned. Bed side rails padded for seizure precautions. Bed locked and in lowest position with bed alarm on. Contact isolation observed and maintained. Will continue plan of care.
--- NOTE | 2019-03-26 08:10 | General Progress Note ---
Assessment/Plan Problem List: (1) Seizure ICD Codes: R56.9 - Unspecified convulsions SNOMED: 40857768 (2) Anemia ICD Codes: D64.9 - Anemia, unspecified SNOMED: 831052627 Qualifiers: Qualified Codes: D64.9 - Anemia, unspecified (3) Sepsis ICD Codes: A41.9 - Sepsis, unspecified organism SNOMED: 81994909, 028006665 Qualifiers: Qualified Codes: A41.9 - Sepsis, unspecified organism (4) Respiratory failure with hypoxia ICD Codes: J96.91 - Respiratory failure, unspecified with hypoxia SNOMED: 56998306289334228 Qualifiers: Qualified Codes: J96.21 - Acute and chronic respiratory failure with hypoxia (5) HCAP (healthcare-associated pneumonia) ICD Codes: J18.9 - Pneumonia, unspecified organism SNOMED: 627712024, 447179572 (6) Sacral decubitus ulcer ICD Codes: L89.159 - Pressure ulcer of sacral region, unspecified stage SNOMED: 557484183 (7) HTN (hypertension) ICD Codes: I10 - Essential (primary) hypertension SNOMED: 79143855 (8) Chronic vegetative state ICD Codes: R40.3 - Persistent vegetative state SNOMED: 43662376 (9) Chronic respiratory failure ICD Codes: J96.10 - Chronic respiratory failure, unspecified whether with hypoxia or hypercapnia SNOMED: 57275242 (10) Limited mobility ICD Codes: Z74.09 - Other reduced mobility SNOMED: 5006754 Status: stable, progressing Assessment/Plan: vent as needed resp rx suctioning j tube feeds g port to [facility] skin care sz rx monitor h/h dc planning Subjective ROS Limited/Unobtainable: Yes Constitutional: Reports: malaise, weakness HEENT: Reports: no symptoms Cardiovascular: Reports: no symptoms Respiratory: Reports: cough, shortness of breath, sputum Gastrointestinal/Abdominal: Reports: difficulty swallowing Genitourinary: Reports: no symptoms Neurologic/Psychiatric: Reports: pre-existing deficit, seizure Endocrine: Reports: no symptoms Hematologic/Lymphatic: Reports: anemia Allergies: Coded Allergies: CODEINE (Verified Allergy, Unknown, HIVES, 09/15/09) All Systems: reviewed and negative except above Subjective s/p j tube placement. tolerating feeds so far. no fevers. no vomiting. Objective Last 24 Hour Vital Signs Date Time Temp Pulse Resp B/P (MAP) Pulse Ox O2 Delivery O2 Flow Rate FiO2 03/26/19 07:20 87 20 100 T-Piece 5.0 28 94 22 100 03/26/19 07:20 100 T-Piece 5.0 28 03/26/19 07:00 79 23 143/103 (116) 100 03/26/19 06:00 80 26 136/58 (84) 99 03/26/19 05:00 78 24 135/58 (83) 100 03/26/19 04:00 T-piece 6.0 T-piece 6.0 03/26/19 04:00 28 03/26/19 04:00 98.9 83 23 122/54 (76) 99 03/26/19 04:00 83 03/26/19 03:11 79 22 100 T-Piece 5.0 28 78 24 100 03/26/19 03:00 92 20 131/59 (83) 96 03/26/19 02:00 78 23 118/50 (72) 99 03/26/19 01:19 100 T-Piece 5.0 28 03/26/19 01:00 79 22 123/60 (81) 100 03/26/19 00:00 T-piece 6.0 T-piece 6.0 03/26/19 00:00 28 03/26/19 00:00 73 03/26/19 00:00 98.6 73 22 105/50 (68) 100 03/25/19 23:42 79 19 100 T-Piece 5.0 28 75 24 100 03/25/19 23:00 72 22 112/49 (70) 98 03/25/19 22:09 90 25 137/60 (85) 98 03/25/19 22:00 79 22 153/121 (132) 100 03/25/19 21:00 82 26 131/54 (79) 100 03/25/19 20:00 98.4 75 22 147/111 (123) 100 03/25/19 20:00 28 03/25/19 20:00 T-piece 6.0 T-piece 6.0 03/25/19 20:00 75 03/25/19 19:43 99 T-Piece 5.0 28 03/25/19 19:42 86 20 100 T-Piece 5.0 28 83 21 100 03/25/19 19:00 89 23 128/61 (83) 100 03/25/19 18:00 85 23 128/55 (79) 99 03/25/19 17:00 84 19 136/59 (84) 100 03/25/19 16:00 28 03/25/19 16:00 T-piece 6.0 T-piece 6.0 03/25/19 16:00 98.6 105 18 130/65 (86) 98 03/25/19 15:32 76 03/25/19 15:12 87 21 100 T-Piece 5.0 28 85 19 100 03/25/19 15:00 76 23 130/63 (85) 100 03/25/19 14:00 92 25 117/62 (80) 100 03/25/19 14:00 90 23 117/62 (80) 100 03/25/19 13:00 94 23 93/60 (71) 98 03/25/19 12:48 97 T-Piece 5.0 28 03/25/19 12:03 93 03/25/19 12:00 28 03/25/19 12:00 98.8 92 24 115/61 (79) 99 03/25/19 12:00 T-piece 6.0 T-piece 6.0 03/25/19 11:28 83 23 100 T-Piece 5.0 28 84 17 98 03/25/19 11:00 85 24 127/64 (85) 98 03/25/19 10:00 88 19 126/63 (84) 98 03/25/19 09:00 87 19 124/63 (83) 98 Intake and Output 03/25/19 03/26/19 19:00 07:00 Intake Total 720 ml 840 ml Output Total 320 ml 380 ml Balance 400 ml 460 ml Free Water 60 ml 120 ml Tube Feeding 600 ml 600 ml Other 60 ml 120 ml Output Urine Total 310 ml 360 ml Gastric Drainage Total 10 ml 20 ml # Bowel Movements 2 Height (Feet): 5 Height (Inches): 4.00 Weight (Pounds): 108 Objective General Appearance: WD/WN, confused. on trach collar Neck: supple Cardiovascular: normal rate, regular rhythm Respiratory/Chest: chest wall non-tender, rhonchi - bilaterally(minimal) Abdomen: normal bowel sounds, non tender, soft, no organomegaly Edema: no edema noted Arm (L), no edema noted Arm (R), no edema noted Leg (L), no edema noted Leg (R), no edema noted Pedal (L), no edema noted Pedal (R), no edema noted Generalized Neurologic: disoriented, unresponsive, aphasia Irvin Beltrán MD Mar 26, 2019 08:10
[2019-03-26] MEDS: Bacitracin Oint 15gm Tube TOPIC SCH ×3 (08:11→18:52)
[2019-03-26] MEDS: levETIRAcetam 500mg/5ml Liquid GT SCH ×2 (08:11→20:50)
[2019-03-26] MEDS: Heparin 5000 units/ml inj SUBQ SCH ×2 (08:13→20:54)
--- NOTE | 2019-03-26 08:25 | NUR ---
RD ASSESSMENT & RECOMMENDATIONS SEE CARE ACTIVITY FOR COMPLETE ASSESSMENT DAILY ESTIMATED NEEDS: Needs based on Pulmonary, wounds, bedbound/ 61kg adj 25-30 kcals/kg 8418-1576 total kcals 1.25-2 g protein/kg 76-122 g total protein 25-30 mL/kg 2200-3450 total fluid mLs NUTRITION DIAGNOSIS: * Increased kcal/prot needs R/T wound healing as evidenced by BL buttocks and sacral wound photos, refer to eval. * Swallowing difficulty R/T respiratory status as evidenced by pt on T-collar, s/p G-J conversion CURRENT TF:Glucerna 1.5 @ 50ml/hr x 24 hrs ENTERAL NUTRITION RECOMMENDATIONS: Glucerna 1.5 @ 50ml/hr x 24 hrs to provide 1200ml, 1800 kcal, 99g pro, 911ml free H2O - Maintain at current rate as tolerated to meet 100% est needs - HOB over 30 degrees - INCREASE water flush to 170ml q 6 hrs ADDITIONAL RECOMMENDATIONS: 1) RE-calibrate bedscale wt: fluctuating daily wts (108#-136# last 6 days) 2) Wound healing: Add Cristian 1pkt BID w/ continued good TF tolerace + MVI x1 daily 3) Increase water flushes- BUN trend up 4) Monitor BGs closely, need for NISS -> now w/ improved BGs 5) Monitor for continued good TF tolerance 6) Monitor K : elev K on 03/25, s/p Kdur BID, now dc'ed.
[2019-03-26 09:20] LABS: BASOPHILS % (AUTO) 0.6 % (0.0-2.0); EOSINOPHILS % (AUTO) 5.9 % (0.0-3.0); HEMATOCRIT 29.1 % (37.0-47.0); HEMOGLOBIN 9.3 G/DL (12.0-16.0); LYMPHOCYTES % (AUTO) 35.4 % (20.0-45.0); MEAN CORPUSCULAR VOLUME 86 FL (80-99); MONOCYTES % (AUTO) 5.1 % (1.0-10.0); PLATELET COUNT 271 K/UL (150-450); RED BLOOD COUNT 3.39 M/UL (4.20-5.40); RED CELL DISTRIBUTION WIDTH 16.6 % (11.6-14.8); WHITE BLOOD COUNT 12.7 K/UL (4.8-10.8)
[2019-03-26 09:43] LABS: ALANINE AMINOTRANSFERASE 36 U/L (12-78); ALBUMIN/GLOBULIN RATIO 0.5 (1.0-2.7); ALKALINE PHOSPHATASE 169 U/L (46-116); ANION GAP 3 mmol/L (5-15); ASPARTATE AMINO TRANSFERASE 24 U/L (15-37); BILIRUBIN,TOTAL 0.1 MG/DL (0.2-1.0); BLOOD UREA NITROGEN 38 mg/dL (7-18); CALCIUM 9.4 MG/DL (8.5-10.1); CARBON DIOXIDE 32 MMOL/L (21-32); CHLORIDE 102 MMOL/L (98-107); CREATININE 1.1 MG/DL (0.55-1.30); POTASSIUM 4.8 MMOL/L (3.5-5.1); SODIUM 137 MMOL/L (136-145)
--- NOTE | 2019-03-26 10:30 | NUR ---
NURSE NOTES: Dr Cortez at bedside assessing pt. Updated him on pt's current condition. No new orders at this time. Pt suctioned and repositioned. No distress noted at this time.
--- NOTE | 2019-03-26 11:21 | Nephrology Progress Note ---
Assessment/Plan Problem List: (1) Acute renal failure (ARF) Assessment: Cr stable (2) Chronic respiratory failure (3) Anemia (4) Sepsis Assessment Acute renal failure Respiratory failure - Trach Low Mag- Low k , Low Na Anemia UTI / Sepsis Proteinuria / HypoAlbuminemia high Trigs Sz decubs bed bound DNR Plan Hold KCL now has JT bolus Albumin as needed K and Mag and Phos supplement as needed Hydrate as needed Urine studies avoid Nephrotoxics mag K Phos supplements as needed monitor renal parameters Subjective ROS Limited/Unobtainable: Yes Objective Objective Last 24 Hour Vital Signs Date Time Temp Pulse Resp B/P (MAP) Pulse Ox O2 Delivery O2 Flow Rate FiO2 03/26/19 10:57 80 22 100 T-Piece 5.0 28 83 20 100 03/26/19 10:00 80 20 141/53 (82) 100 03/26/19 09:00 82 25 134/58 (83) 100 03/26/19 08:00 28 03/26/19 08:00 T-piece 6.0 T-piece 6.0 03/26/19 08:00 97.8 75 21 138/51 (80) 100 03/26/19 07:59 77 03/26/19 07:20 87 20 100 T-Piece 5.0 28 94 22 100 03/26/19 07:20 100 T-Piece 5.0 28 03/26/19 07:00 79 23 143/103 (116) 100 03/26/19 06:00 80 26 136/58 (84) 99 03/26/19 05:00 78 24 135/58 (83) 100 03/26/19 04:00 T-piece 6.0 T-piece 6.0 03/26/19 04:00 28 03/26/19 04:00 98.9 83 23 122/54 (76) 99 03/26/19 04:00 83 03/26/19 03:11 79 22 100 T-Piece 5.0 28 78 24 100 03/26/19 03:00 92 20 131/59 (83) 96 03/26/19 02:00 78 23 118/50 (72) 99 03/26/19 01:19 100 T-Piece 5.0 28 03/26/19 01:00 79 22 123/60 (81) 100 03/26/19 00:00 T-piece 6.0 T-piece 6.0 03/26/19 00:00 28 03/26/19 00:00 73 03/26/19 00:00 98.6 73 22 105/50 (68) 100 03/25/19 23:42 79 19 100 T-Piece 5.0 28 75 24 100 03/25/19 23:00 72 22 112/49 (70) 98 03/25/19 22:09 90 25 137/60 (85) 98 03/25/19 22:00 79 22 153/121 (132) 100 03/25/19 21:00 82 26 131/54 (79) 100 03/25/19 20:00 98.4 75 22 147/111 (123) 100 03/25/19 20:00 28 03/25/19 20:00 T-piece 6.0 T-piece 6.0 03/25/19 20:00 75 03/25/19 19:43 99 T-Piece 5.0 28 03/25/19 19:42 86 20 100 T-Piece 5.0 28 83 21 100 03/25/19 19:00 89 23 128/61 (83) 100 03/25/19 18:00 85 23 128/55 (79) 99 03/25/19 17:00 84 19 136/59 (84) 100 03/25/19 16:00 28 03/25/19 16:00 T-piece 6.0 T-piece 6.0 03/25/19 16:00 98.6 105 18 130/65 (86) 98 03/25/19 15:32 76 03/25/19 15:12 87 21 100 T-Piece 5.0 28 85 19 100 03/25/19 15:00 76 23 130/63 (85) 100 03/25/19 14:00 92 25 117/62 (80) 100 03/25/19 14:00 90 23 117/62 (80) 100 03/25/19 13:00 94 23 93/60 (71) 98 03/25/19 12:48 97 T-Piece 5.0 28 03/25/19 12:03 93 03/25/19 12:00 28 03/25/19 12:00 98.8 92 24 115/61 (79) 99 03/25/19 12:00 T-piece 6.0 T-piece 6.0 03/25/19 11:28 83 23 100 T-Piece 5.0 28 84 17 98 Intake and Output 03/25/19 03/26/19 19:00 07:00 Intake Total 720 ml 840 ml Output Total 320 ml 380 ml Balance 400 ml 460 ml Free Water 60 ml 120 ml Tube Feeding 600 ml 600 ml Other 60 ml 120 ml Output Urine Total 310 ml 360 ml Gastric Drainage Total 10 ml 20 ml # Bowel Movements 2 Laboratory Tests 03/26/19 08:30: White Blood Count 12.7H, Red Blood Count 3.39L, Hemoglobin 9.3L, Hematocrit 29.1L, Mean Corpuscular Volume 86, Mean Corpuscular Hemoglobin 27.5, Mean Corpuscular Hemoglobin Concent 32.0, Red Cell Distribution Width 16.6H, Platelet Count 271, Mean Platelet Volume 6.0L, Neutrophils (%) (Auto) 53.0, Lymphocytes (%) (Auto) 35.4, Monocytes (%) (Auto) 5.1, Eosinophils (%) (Auto) 5.9H, Basophils (%) (Auto) 0.6, Sodium Level 137, Potassium Level 4.8, Chloride Level 102, Carbon Dioxide Level 32, Anion Gap 3L, Blood Urea Nitrogen 38H, Creatinine 1.1, Estimat Glomerular Filtration Rate , Glucose Level 123H, Calcium Level 9.4, Magnesium Level 2.3, Total Bilirubin 0.1L, Aspartate Amino Transf (AST/SGOT) 24, Alanine Aminotransferase (ALT/SGPT) 36, Alkaline Phosphatase 169H, Total Protein 8.7H, Albumin 3.0L, Globulin 5.7, Albumin/ Globulin Ratio 0.5L Height (Feet): 5 Height (Inches): 4.00 Weight (Pounds): 108 General Appearance: no apparent distress EENT: other - O2 tube to trach Cardiovascular: tachycardia Respiratory/Chest: decreased breath sounds Abdomen: distended Objective no change Eric Cortez MD Mar 26, 2019 11:21
--- NOTE | 2019-03-26 12:50 | NUR ---
NURSE NOTES: Dr Pretty at bedside assessing pt. Updated her on pt's current condition. No new orders at this time. Pt suctioned and repositioned. No distress noted at this time. Will continue to monitor.
--- NOTE | 2019-03-26 12:53 | Infectious Diseases Prog Note ---
"Assessment/Plan Assessment/Plan antibiotics : none A 1. klebsiella | providencia pneumonia s/p rx 2. respiratory failure 3. hypertension 4. CVA 5. dementia 6. sacral decubitus ulcer 7. rectal VRE colonization P 1. observe off antibiotics 2. dc planned Subjective ROS Limited/Unobtainable: Yes Allergies: Coded Allergies: CODEINE (Verified Allergy, Unknown, HIVES, 09/15/09) Objective Vital Signs Last 24 Hour Vital Signs Date Time Temp Pulse Resp B/P (MAP) Pulse Ox O2 Delivery O2 Flow Rate FiO2 03/26/19 12:00 T-piece 6.0 T-piece 6.0 03/26/19 12:00 28 03/26/19 12:00 98.6 76 22 112/51 (71) 100 03/26/19 11:00 90 19 139/105 (116) 100 03/26/19 10:57 80 22 100 T-Piece 5.0 28 83 20 100 03/26/19 10:00 80 20 141/53 (82) 100 03/26/19 09:00 82 25 134/58 (83) 100 03/26/19 08:00 28 03/26/19 08:00 T-piece 6.0 T-piece 6.0 03/26/19 08:00 97.8 75 21 138/51 (80) 100 03/26/19 07:59 77 03/26/19 07:20 87 20 100 T-Piece 5.0 28 94 22 100 03/26/19 07:20 100 T-Piece 5.0 28 03/26/19 07:00 79 23 143/103 (116) 100 03/26/19 06:00 80 26 136/58 (84) 99 03/26/19 05:00 78 24 135/58 (83) 100 03/26/19 04:00 T-piece 6.0 T-piece 6.0 03/26/19 04:00 28 03/26/19 04:00 98.9 83 23 122/54 (76) 99 03/26/19 04:00 83 03/26/19 03:11 79 22 100 T-Piece 5.0 28 78 24 100 03/26/19 03:00 92 20 131/59 (83) 96 03/26/19 02:00 78 23 118/50 (72) 99 03/26/19 01:19 100 T-Piece 5.0 28 03/26/19 01:00 79 22 123/60 (81) 100 03/26/19 00:00 T-piece 6.0 T-piece 6.0 03/26/19 00:00 28 03/26/19 00:00 73 03/26/19 00:00 98.6 73 22 105/50 (68) 100 03/25/19 23:42 79 19 100 T-Piece 5.0 28 75 24 100 03/25/19 23:00 72 22 112/49 (70) 98 03/25/19 22:09 90 25 137/60 (85) 98 03/25/19 22:00 79 22 153/121 (132) 100 03/25/19 21:00 82 26 131/54 (79) 100 03/25/19 20:00 98.4 75 22 147/111 (123) 100 03/25/19 20:00 28 03/25/19 20:00 T-piece 6.0 T-piece 6.0 03/25/19 20:00 75 03/25/19 19:43 99 T-Piece 5.0 28 03/25/19 19:42 86 20 100 T-Piece 5.0 28 83 21 100 03/25/19 19:00 89 23 128/61 (83) 100 03/25/19 18:00 85 23 128/55 (79) 99 03/25/19 17:00 84 19 136/59 (84) 100 03/25/19 16:00 28 03/25/19 16:00 T-piece 6.0 T-piece 6.0 03/25/19 16:00 98.6 105 18 130/65 (86) 98 03/25/19 15:32 76 03/25/19 15:12 87 21 100 T-Piece 5.0 28 85 19 100 03/25/19 15:00 76 23 130/63 (85) 100 03/25/19 14:00 92 25 117/62 (80) 100 03/25/19 14:00 90 23 117/62 (80) 100 03/25/19 13:00 94 23 93/60 (71) 98 Height (Feet): 5 Height (Inches): 4.00 Weight (Pounds): 108 HEENT: status post trach Respiratory/Chest: lungs clear Cardiovascular: normal rate, regular rhythm, no gallop/murmur Abdomen: soft, non tender, other - GT Extremities: no edema, other - right arm PICC Laboratory Tests Test 03/26/19 08:30 White Blood Count 12.7 K/UL (4.8-10.8) H Red Blood Count 3.39 M/UL (4.20-5.40) L Hemoglobin 9.3 G/DL (12.0-16.0) L Hematocrit 29.1 % (37.0-47.0) L Mean Corpuscular Volume 86 FL (80-99) Mean Corpuscular Hemoglobin 27.5 PG (27.0-31.0) Mean Corpuscular Hemoglobin Concent 32.0 G/DL (32.0-36.0) Red Cell Distribution Width 16.6 % (11.6-14.8) H Platelet Count 271 K/UL (150-450) Mean Platelet Volume 6.0 FL (6.5-10.1) L Neutrophils (%) (Auto) 53.0 % (45.0-75.0) Lymphocytes (%) (Auto) 35.4 % (20.0-45.0) Monocytes (%) (Auto) 5.1 % (1.0-10.0) Eosinophils (%) (Auto) 5.9 % (0.0-3.0) H Basophils (%) (Auto) 0.6 % (0.0-2.0) Sodium Level 137 MMOL/L (136-145) Potassium Level 4.8 MMOL/L (3.5-5.1) Chloride Level 102 MMOL/L (98-107) Carbon Dioxide Level 32 MMOL/L (21-32) Anion Gap 3 mmol/L (5-15) L Blood Urea Nitrogen 38 mg/dL (7-18) H Creatinine 1.1 MG/DL (0.55-1.30) Estimat Glomerular Filtration Rate mL/min (>60) Glucose Level 123 MG/DL (74-106) H Calcium Level 9.4 MG/DL (8.5-10.1) Magnesium Level 2.3 MG/DL (1.8-2.4) Total Bilirubin 0.1 MG/DL (0.2-1.0) L Aspartate Amino Transf (AST/SGOT) 24 U/L (15-37) Alanine Aminotransferase (ALT/SGPT) 36 U/L (12-78) Alkaline Phosphatase 169 U/L (46-116) H Total Protein 8.7 G/DL (6.4-8.2) H Albumin 3.0 G/DL (3.4-5.0) L Globulin 5.7 g/dL Albumin/Globulin Ratio 0.5 (1.0-2.7) L Current Medications Medications (Trade) Dose Ordered Sig/Maicol Route PRN Reason Start Time Stop Time Status Last Admin Dose Admin Acetaminophen (Tylenol) 650 mg Q6H PRN GT Mild Pain/Temp > 100.5 03/23/19 15:15 04/22/19 15:14 03/23/19 19:09 Albuterol/ Ipratropium (Albuterol/ Ipratropium) 3 ml Q4HRT HHN 03/25/19 11:00 03/30/19 10:59 03/26/19 10:57 Atropine Sulfate (Atropine Opth Adriana) 2 drop TID SL 03/07/19 09:00 04/06/19 08:59 03/26/19 12:23 Bacitracin (Bacitracin 15gm tube) 1 applic THREE TIMES A DAY TOPIC 02/28/19 18:30 03/30/19 18:29 03/26/19 12:23 Chlorhexidine Gluconate (Cesilia-Hex 2%) 1 applic DAILY@1999 TOPIC 03/12/19 20:00 04/11/19 19:59 03/25/19 19:39 Heparin Sodium (Porcine) (Heparin 5000 units/ml) 5,000 units EVERY 12 HOURS SUBQ 03/22/19 21:00 03/31/19 23:14 03/26/19 08:13 Hydralazine HCl (Apresoline) 10 mg Q4H PRN IV For High Blood Pressure 03/12/19 09:00 04/11/19 08:59 03/18/19 18:17 Lansoprazole (Prevacid) 30 mg Q12HR JT 03/25/19 21:00 04/24/19 20:59 03/26/19 08:11 Levetiracetam (Keppra) 750 mg Q12HR GT 03/22/19 21:00 03/31/19 23:29 03/26/19 08:11 Lorazepam (Ativan 2mg/ml 1ml) 0.5 mg Q2H PRN IV For Seizures 03/23/19 15:15 03/30/19 15:14 Metoclopramide HCl (Reglan) 5 mg Q6H IVP 03/24/19 20:00 04/23/19 19:59 03/26/19 08:11 Ondansetron HCl (Zofran) 4 mg Q4H PRN IVP Nausea & Vomiting 03/18/19 18:15 04/17/19 18:14 03/21/19 08:27 Geovany Yang MD Mar 26, 2019 12:53"
--- NOTE | 2019-03-26 14:33 | NUR ---
CASE MANAGEMENT:REVIEW 03/26/19 SI: SEPSIS. PNA. SACRAL DECUB. POD #5.....S/P G TO GJ TUBE 98.6 78 21 97/46 100% ON T-PIECE WBC+12.7 H/H-9.3/29.1 BUN+38 IS: HEPARIN SQ Q12 KEPPRA GT Q12 K-DUR GT QD IV PROTONIX Q12 DUONEB HHN Q4HRS RTC ATROPINE SL TID IV REGLAN Q6HRS PREVACID JT Q12 : ICU STATUS PLAN: CONTINUE TUBE FEEDINGS @ 50/HR TRANSFER TO LT[facility] WHEN BED AVAILABLE
--- NOTE | 2019-03-26 14:46 | NUR ---
DISCHARGE PLANNING [facility] IS THE ONLY FACILITY WILLING TO ACCEPT THIS PATIENT SINCE SHE HAS A HISTORY OF [facility] WAITING FOR BED TO BECOME AVAILABLE AT [facility] AT [facility]INT PATIENT WILL DISCHARGE
--- NOTE | 2019-03-26 16:00 | NUR ---
NURSE NOTES: RECEIVED PT FROM JEANNINE SINGLETON. A/OX0; PT AWAKE WITH EYES OPEN, UNABLE TO TRACK OR FOLLOW COMMANDS. SHILEY 6.0 XLT/T-PIECE CONNECTED TO COOL AERSOL 28%. O2 SAT 100%, RR 21. NO S/SX OF ACUTE DISTRESS. NSR ON [employer] HR 75. PICC RT UPPER ARM PATENT AND ASYMPTOMATIC. PURWICK DRAINING W/SXN. G-TUBE DRAINING TO GRAVITY AND J-TUBE RUNNING GLUCERNA 1.5@50ML/HR, ABD NON-DISTENDED, HOB 35 DEGREES, NO RESIDUALS. SIDERAILS PADDED FOR SZ PRECAUTIONS. BED LOCKED, ALARMED AND IN LOWEST POSITION. Addendum: 03/26/19 at 1711 by LEXA DUMONT RN NOTE TIME CHANGE TO 1645
--- NOTE | 2019-03-26 16:20 | NUR ---
NURSE NOTES: Dr Moffett at bedside assessing pt. Updated him on pt's current condition. No new orders at this time. Pt repositioned and oral care completed. Pt continues to have a large amount of white thick secretions, which were suctioned. No distress noted at this time.
--- NOTE | 2019-03-26 16:23 | NUR ---
HAND-OFF: Report given to Gisselle Sosa RN.
--- NOTE | 2019-03-26 17:56 | Surgery Progress Note ---
Surgery Progress Note Subjective Additional Comments Resting comfortable no acute events dressing stable gastric residual only 100 cc per shift tolerating feeds Objective Last 24 Hour Vital Signs Date Time Temp Pulse Resp B/P (MAP) Pulse Ox O2 Delivery O2 Flow Rate FiO2 03/26/19 17:00 82 20 125/58 (80) 99 03/26/19 16:00 T-piece 6.0 T-piece 6.0 03/26/19 16:00 28 03/26/19 16:00 98.8 111 26 136/67 (90) 96 03/26/19 16:00 88 03/26/19 15:00 102 20 96/59 (71) 99 03/26/19 14:00 78 21 97/47 (64) 100 03/26/19 13:25 100 T-Piece 5.0 28 03/26/19 13:00 74 19 128/55 (79) 100 03/26/19 12:01 73 03/26/19 12:00 T-piece 6.0 T-piece 6.0 03/26/19 12:00 28 03/26/19 12:00 98.6 76 22 112/51 (71) 100 03/26/19 11:00 90 19 139/105 (116) 100 03/26/19 10:57 80 22 100 T-Piece 5.0 28 83 20 100 03/26/19 10:00 80 20 141/53 (82) 100 03/26/19 09:00 82 25 134/58 (83) 100 03/26/19 08:00 28 03/26/19 08:00 T-piece 6.0 T-piece 6.0 03/26/19 08:00 97.8 75 21 138/51 (80) 100 03/26/19 07:59 77 03/26/19 07:20 87 20 100 T-Piece 5.0 28 94 22 100 03/26/19 07:20 100 T-Piece 5.0 28 03/26/19 07:00 79 23 143/103 (116) 100 03/26/19 06:00 80 26 136/58 (84) 99 03/26/19 05:00 78 24 135/58 (83) 100 03/26/19 04:00 T-piece 6.0 T-piece 6.0 03/26/19 04:00 28 03/26/19 04:00 98.9 83 23 122/54 (76) 99 03/26/19 04:00 83 03/26/19 03:11 79 22 100 T-Piece 5.0 28 78 24 100 03/26/19 03:00 92 20 131/59 (83) 96 03/26/19 02:00 78 23 118/50 (72) 99 03/26/19 01:19 100 T-Piece 5.0 28 03/26/19 01:00 79 22 123/60 (81) 100 03/26/19 00:00 T-piece 6.0 T-piece 6.0 03/26/19 00:00 28 03/26/19 00:00 73 03/26/19 00:00 98.6 73 22 105/50 (68) 100 03/25/19 23:42 79 19 100 T-Piece 5.0 28 75 24 100 03/25/19 23:00 72 22 112/49 (70) 98 03/25/19 22:09 90 25 137/60 (85) 98 03/25/19 22:00 79 22 153/121 (132) 100 03/25/19 21:00 82 26 131/54 (79) 100 03/25/19 20:00 98.4 75 22 147/111 (123) 100 03/25/19 20:00 28 03/25/19 20:00 T-piece 6.0 T-piece 6.0 03/25/19 20:00 75 03/25/19 19:43 99 T-Piece 5.0 28 03/25/19 19:42 86 20 100 T-Piece 5.0 28 83 21 100 03/25/19 19:00 89 23 128/61 (83) 100 03/25/19 18:00 85 23 128/55 (79) 99 I&O Intake and Output 03/25/19 03/26/19 19:00 07:00 Intake Total 720 ml 840 ml Output Total 320 ml 380 ml Balance 400 ml 460 ml Free Water 60 ml 120 ml Tube Feeding 600 ml 600 ml Other 60 ml 120 ml Output Urine Total 310 ml 360 ml Gastric Drainage Total 10 ml 20 ml # Bowel Movements 2 Dressing: dry Wound: clean Cardiovascular: RSR Respiratory: clear Abdomen: soft, flat, non-tender, present bowel sounds, other, non-distended Extremities: no cyanosis, other Laboratory Tests Test 03/26/19 08:30 White Blood Count 12.7 K/UL (4.8-10.8) H Red Blood Count 3.39 M/UL (4.20-5.40) L Hemoglobin 9.3 G/DL (12.0-16.0) L Hematocrit 29.1 % (37.0-47.0) L Mean Corpuscular Volume 86 FL (80-99) Mean Corpuscular Hemoglobin 27.5 PG (27.0-31.0) Mean Corpuscular Hemoglobin Concent 32.0 G/DL (32.0-36.0) Red Cell Distribution Width 16.6 % (11.6-14.8) H Platelet Count 271 K/UL (150-450) Mean Platelet Volume 6.0 FL (6.5-10.1) L Neutrophils (%) (Auto) 53.0 % (45.0-75.0) Lymphocytes (%) (Auto) 35.4 % (20.0-45.0) Monocytes (%) (Auto) 5.1 % (1.0-10.0) Eosinophils (%) (Auto) 5.9 % (0.0-3.0) H Basophils (%) (Auto) 0.6 % (0.0-2.0) Sodium Level 137 MMOL/L (136-145) Potassium Level 4.8 MMOL/L (3.5-5.1) Chloride Level 102 MMOL/L (98-107) Carbon Dioxide Level 32 MMOL/L (21-32) Anion Gap 3 mmol/L (5-15) L Blood Urea Nitrogen 38 mg/dL (7-18) H Creatinine 1.1 MG/DL (0.55-1.30) Estimat Glomerular Filtration Rate mL/min (>60) Glucose Level 123 MG/DL (74-106) H Calcium Level 9.4 MG/DL (8.5-10.1) Magnesium Level 2.3 MG/DL (1.8-2.4) Total Bilirubin 0.1 MG/DL (0.2-1.0) L Aspartate Amino Transf (AST/SGOT) 24 U/L (15-37) Alanine Aminotransferase (ALT/SGPT) 36 U/L (12-78) Alkaline Phosphatase 169 U/L (46-116) H Total Protein 8.7 G/DL (6.4-8.2) H Albumin 3.0 G/DL (3.4-5.0) L Globulin 5.7 g/dL Albumin/Globulin Ratio 0.5 (1.0-2.7) L Plan Problems: (1) Sacral decubitus ulcer Assessment & Plan: This is a 83-year-old female with multiple medical committees that is currently admitted for medical care and management and identified to have multiple wounds requiring care. On admission patient noted to have a resolved sacral decubitus ulcer. Has had prior care and is well-healed at this time. Will ensure it does not open up again. Patient has a right ischial decubitus ulcer that is resolved. Scar intact and well formed. Will monitor to ensure it does not open up again. Patient has a left ischial decubitus ulcer that can be identified to be stage IV with palpable bone that has been resolving as noted by the periwound tissue and scar but open area approximately 1 cm x 1.5 cm few millimeters deep to bone identified. Unsure if this is been to be completely healed prior and has since opened or if has been healing at this level. No foul odor no drainage was unsure local wound care until healed Bilateral heels soft without signs of injury Resolving pressure injury L ischium(L)1.8cm x (W)1cm.Scattered biofilm at base of wound. Edges flat and adherent with surrounding hyperpigmentation. No odor or exudate noted. Sacrum is pale pink with surrounding hyperpigmentation. Hyperpigmentation R ischium with small sheared area centrally.No areas of erythema or exudate noted. Both heels are soft but blanchable. Skin Assessed under collar of trach and no evidence of skin breakdown noted. All wound Tx. are effective and continued as ordered. Pt ahs an APM/Belén mattress overlay and is being repositioned per protocols and per tolerance.No new skin concerns noted. Full thickness pressure injury L Ischium with small amt biofilm (L)1.8cm x (W) 1cm. Surrounding pink hyperpigmentation. No odor or exudate noted. [place] hyperpigmentation from previous wound noted to sacrum. Pt also noted to have Cat 2 Skin Tear dorsal L hand, L 5th metatarsal extending into palm of hand. 80% skin flap in situ.Both heels are dry firm and blanchable. No other skin concerns noted. R ischial wound has resolved. [place] epithelial with surrounding hyperpigmentation. from historical wound. Full thickness pressure injury L ischium. [place] granulation at base of wound. Borders are macerated with Surrounding hyperpigmentation.Small amt non-odorous serous exudate noted.(L)0.7cm x (W)0.8cm. Skin hyperpigmentation from historical wound noted to Sacrum. Small sheared area noted to sacrococcygeal area.(L)0.4cm x (W)0.3cm.Small amt sanguineous exudate noted. Reabsorbed blister with semi-detached dry necrotic cap noted to web space of L thumb and L index fingers extending into palm of L hand. No odor or exudate noted. Skin assessed under tracheal collar and no erythema or evidence of Skin Breakdown noted. NO new skin concerns noted . Good hand hygiene provided to both hands. R hand contracted and fisted. Fingernails trimmed. Wound care provided along with Primary nurse. Wound Tx continued as ordered. New order obtained from to apply Betadine to wound L hand Daily. Tx done as ordered. L hand wrapped with kerlix weaving kerlix between fingers to separate fingers. Moisture Barrier applied to sacrum ,R ischium. Each site covered with Optifoam drsg. Both lower ext washed and moisturized. Cavilon Skin Barrier applied to both heels.Each heel covered with Optifoam drsgs. Pt positioned with pillows and both heels off-loaded with pillow. Tx.Plan: Apply Betadine to wound L hand. Cover with Gauze and wrap with Kerlix Daily and prn. Cleanse L ischial wound with Saline. Apply Therahoney. Apply Moisture Barrier periwound. Cover with Optifoam drsgevery 3 days and prn. Apply Moisture Barrier Paste to R ischium and Sacrum. Cover each area with Optifoam drsg. Change every 3 days and prn. Apply Cavilon Skin Barrier to both heels. Cover each heel with Optifoam drsg. Change every 7 days and prn. APM/BELÉN Mattress overlay. Reposition at least every 2hours or as tolerated. Off-load heels with pillow. Cleanse Blister Dorsal and palm of L hand with saline. Versatel One Silicone Contact Layer(Applied). Apply Silvasorb Gel. Wrap with Kerlix Gauze.Change every 7 days and prn. Apply Moisture Barrier to sacrum. Cover with Optifoam drsg. Change every 3 days and prn. Cleanse L ischial wound with saline. Apply Therahoney. Apply Moisture Barrier Paste periwound. Cover with Optifoam drsg. Change every 3 days and prn. Apply Cavilon Skin Barrier to both heels. Cover each heel with Optifoam drsg. Change every 7 days and prn. APM/BELÉN Mattress overlay. Reposition at least every 2hours or as tolerated. Off-load heels with pillow. Nutritional optimization We will monitor follow with recommendations cont with above upon d/c (2) Sepsis Assessment & Plan: IV abx as per ID trend labs improving wounds unlikely etiology likely respiratory imaging noted and okay abnormal lft's stable PICC on Abx in ICU for desaturation CXR with consolidation cont with frequent suctioning d/c planning possible placement found Evidence of left lower lobe pneumonia, also previously demonstrated Gastrostomy in good position Mild diastasis of the rectus abdominis musculature again demonstrated Retrosacral decubitus changes, better depicted on prior exam which included the pelvis Small hiatal hernia with evidence of trace gastroesophageal reflux Discussed with GI. Recommend GJ family still pending decision (3) Feeding by G-tube Assessment & Plan: DAILY ESTIMATED NEEDS: Needs based on Pulmonary, wounds, bedbound/ 61kg adj 25-30 kcals/kg 5616-3503 total kcals 1.25-2 g protein/kg 76-122 g total protein 25-30 mL/kg 3436-5307 total fluid mLs NUTRITION DIAGNOSIS: * Increased kcal/prot needs R/T wound healing as evidenced by BL buttocks and sacral wound photos, refer to eval. * Swallowing difficulty R/T respiratory status as evidenced by pt on T-collar, now back the vent, PEG dep. CURRENT TF:Glucerna 1.5 @ 25ml/hr x 24 hrs - currently HELD d/t emesis ENTERAL NUTRITION RECOMMENDATIONS: Glucerna 1.5 @ 45ml/hr x 24 hrs to provide 1080ml, 1620kcal, 89g prot, 820ml free water - As medically able, rec to increase goal rate to 45ml/hr x24 hrs to meet 100% est kcal/prot needs - HOB over 30 degrees - Water flush of 170ml q 6 hrs * W/ continued regurgitation/ emesis, rec Osmolite 1.5 for GI tolerance. Rec goal of 45ml/hr to provide: 1080ml, 1620 kcal, 68g pro, 823ml free H20. * Add Prosource 1 pack daily to provide additional 11g pro. ADDITIONAL RECOMMENDATIONS: 1) Weekly weights 2) Wound healing: Add Cristian 1pkt BID w/ good TF tolerance + MVI x1 daily 3) Monitor lytes, replete as needed 4) Monitor BGs closely, need for NISS (wnl) 5) Monitor TF tolerance: rec Tf change as above if not (4) Chronic vegetative state Assessment & Plan: incontinence of urine and stool. can soil dressings. nurses doing great job with monitoring and changing prn (5) Leukocytosis Walter Madera Mar 26, 2019 17:56
--- NOTE | 2019-03-26 19:11 | NUR ---
HAND-OFF: Report given to JEANNINE Armstrong.
[2019-03-26] MEDS: Dyna-Hex 2% Top Sol 2oz TOPIC SCH (19:48)
--- NOTE | 2019-03-26 20:02 | NUR ---
NURSE NOTES: received report from porfirio rn pt awake nonverbal does not follows command upper extremities contracted lower extremities stiff shiley 6 trach -t-piece 28 o/o fio2 suction and reposition no acute resp distress noted GT- DR-DRANAGE TUBE FEEDING VIA JT NO RESIDUAL URINARY OUT GOOD VIA EXTERNAL CATH
--- NOTE | 2019-03-26 21:22 | Pulmonolgy Critical Care Note ---
Critical Care - Asmt/Plan Assessment/Plan: Pulmonary CCM Progress Note Assessment/Plan Impression: Sepsis syndrome Pneumonia, KPC VDRF, Trach, G tube, Hypertension, Cardiac disease, Dementia, Previous CVA, Seizure disorder, Respiratory failure with hypoxia, on TC Anemia Sacral ulcer renal cyst pulmonary congestion Plan respiratory care to continue as is, TC as tolerated atropine neb therapy SNF meds as is off vent as able and has been off for several day Oxygen as needed Monitor labs daily changes noted and reviewed feeds as tolerated monitor albumin levels and provide protein and nutrition elevate head aspiration precautions Patient is a DNR. No CPR. ICU care reviewed medications/laboratory data/nursing notes/ICU care reviewed in detail note reviewed and edited care discussed with RN and RT ICU time spent 45 minutes Subjective Allergies: Coded Allergies: CODEINE (Verified Allergy, Unknown, HIVES, 09/15/09) Subjective respiratory care noted congestion- improved with atropine ICU care reviewed supportive care noted and reviewed RT care reviewed overnight care noted findings reviewed and discussed in detail with nursing and RT seen earlier this am Objective Vital Signs Noted Objective WDWN NAD contracted off vent reduced breath sounds bilaterally with some rhonchi; no wheeze [id number] without MRG NABS nontender no HSM no CC minimal nonfocal nonverbal trach and gt reviewed and edited Laboratory Tests Noted Critical Care - Objective Last 24 Hour Vital Signs Date Time Temp Pulse Resp B/P (MAP) Pulse Ox O2 Delivery O2 Flow Rate FiO2 03/26/19 21:00 109 22 158/61 (93) 99 03/26/19 20:00 28 03/26/19 20:00 T-piece 6.0 T-piece 6.0 03/26/19 20:00 98.6 76 22 137/52 (80) 100 03/26/19 20:00 76 03/26/19 19:12 98 T-Piece 5.0 28 03/26/19 19:12 90 18 100 T-Piece 5.0 28 85 23 98 03/26/19 19:00 83 22 131/59 (83) 100 03/26/19 18:00 82 24 134/57 (82) 100 03/26/19 17:00 82 20 125/58 (80) 99 03/26/19 16:00 T-piece 6.0 T-piece 6.0 03/26/19 16:00 28 03/26/19 16:00 98.8 111 26 136/67 (90) 96 03/26/19 16:00 88 03/26/19 15:00 102 20 96/59 (71) 99 03/26/19 14:00 78 21 97/47 (64) 100 03/26/19 13:25 100 T-Piece 5.0 28 03/26/19 13:00 74 19 128/55 (79) 100 03/26/19 12:01 73 03/26/19 12:00 T-piece 6.0 T-piece 6.0 03/26/19 12:00 28 03/26/19 12:00 98.6 76 22 112/51 (71) 100 03/26/19 11:00 90 19 139/105 (116) 100 03/26/19 10:57 80 22 100 T-Piece 5.0 28 83 20 100 03/26/19 10:00 80 20 141/53 (82) 100 03/26/19 09:00 82 25 134/58 (83) 100 03/26/19 08:00 28 03/26/19 08:00 T-piece 6.0 T-piece 6.0 03/26/19 08:00 97.8 75 21 138/51 (80) 100 03/26/19 07:59 77 03/26/19 07:20 87 20 100 T-Piece 5.0 28 94 22 100 03/26/19 07:20 100 T-Piece 5.0 28 03/26/19 07:00 79 23 143/103 (116) 100 03/26/19 06:00 80 26 136/58 (84) 99 03/26/19 05:00 78 24 135/58 (83) 100 03/26/19 04:00 T-piece 6.0 T-piece 6.0 03/26/19 04:00 28 03/26/19 04:00 98.9 83 23 122/54 (76) 99 03/26/19 04:00 83 03/26/19 03:11 79 22 100 T-Piece 5.0 28 78 24 100 03/26/19 03:00 92 20 131/59 (83) 96 03/26/19 02:00 78 23 118/50 (72) 99 03/26/19 01:19 100 T-Piece 5.0 28 03/26/19 01:00 79 22 123/60 (81) 100 03/26/19 00:00 T-piece 6.0 T-piece 6.0 03/26/19 00:00 28 03/26/19 00:00 73 03/26/19 00:00 98.6 73 22 105/50 (68) 100 03/25/19 23:42 79 19 100 T-Piece 5.0 28 75 24 100 03/25/19 23:00 72 22 112/49 (70) 98 03/25/19 22:09 90 25 137/60 (85) 98 03/25/19 22:00 79 22 153/121 (132) 100 Critical Care - Subjective ROS Limited/Unobtainable: No FI02: 28 Vent Support Mode: CPAP Vent Tidal Volume: 450 Sputum Amount: Moderate PEEP: 5.0 PIP: 19 Tube Feeding Amount: 50 I&O: Intake and Output 03/25/19 03/26/19 19:00 07:00 Intake Total 720 ml 840 ml Output Total 320 ml 380 ml Balance 400 ml 460 ml Free Water 60 ml 120 ml Tube Feeding 600 ml 600 ml Other 60 ml 120 ml Output Urine Total 310 ml 360 ml Gastric Drainage Total 10 ml 20 ml # Bowel Movements 2 ET-Tube: 6.0 Bg Moffett MD Mar 26, 2019 21:22
--- NOTE | 2019-03-26 22:00 | NUR ---
NURSE NOTES: reposition and suction no acute resp distress noted
--- NOTE | 2019-03-26 22:27 | General Progress Note ---
Assessment/Plan Status: stable, progressing Assessment/Plan: Assessment - N/V - resolved with G --> J conversion - now tolerating TF at goal - suction gently - Elevated Alk phos / LFT - CT negative - abd U/S negative - check hepatitis serologies - negative - Anemia with OB (-) stools - Resp failure, s/p Trach - dysphagia, s/p PEG --> s/p GT change--> GJ tube - OBS, vegetative unresponsive state, bedbound state, contracted extremities, - minor GT tract inflammation / infection - treat locally - poor Prognosis Recommendations - laxative PRN - antibiotic ointment to GJT site PRN - aspiration precautions - elevate HOB - continue TF Subjective Allergies: Coded Allergies: CODEINE (Verified Allergy, Unknown, HIVES, 09/15/09) Subjective seen in am tolerating TF d/w RN Objective Last 24 Hour Vital Signs Date Time Temp Pulse Resp B/P (MAP) Pulse Ox O2 Delivery O2 Flow Rate FiO2 03/26/19 22:00 83 16 124/53 (76) 99 03/26/19 21:00 109 22 158/61 (93) 99 03/26/19 20:00 28 03/26/19 20:00 T-piece 6.0 T-piece 6.0 03/26/19 20:00 98.6 76 22 137/52 (80) 100 03/26/19 20:00 76 03/26/19 19:12 98 T-Piece 5.0 28 03/26/19 19:12 90 18 100 T-Piece 5.0 28 85 23 98 03/26/19 19:00 83 22 131/59 (83) 100 03/26/19 18:00 82 24 134/57 (82) 100 03/26/19 17:00 82 20 125/58 (80) 99 03/26/19 16:00 T-piece 6.0 T-piece 6.0 03/26/19 16:00 28 03/26/19 16:00 98.8 111 26 136/67 (90) 96 03/26/19 16:00 88 03/26/19 15:00 102 20 96/59 (71) 99 03/26/19 14:00 78 21 97/47 (64) 100 03/26/19 13:25 100 T-Piece 5.0 28 03/26/19 13:00 74 19 128/55 (79) 100 03/26/19 12:01 73 03/26/19 12:00 T-piece 6.0 T-piece 6.0 03/26/19 12:00 28 03/26/19 12:00 98.6 76 22 112/51 (71) 100 03/26/19 11:00 90 19 139/105 (116) 100 03/26/19 10:57 80 22 100 T-Piece 5.0 28 83 20 100 03/26/19 10:00 80 20 141/53 (82) 100 03/26/19 09:00 82 25 134/58 (83) 100 03/26/19 08:00 28 03/26/19 08:00 T-piece 6.0 T-piece 6.0 03/26/19 08:00 97.8 75 21 138/51 (80) 100 03/26/19 07:59 77 03/26/19 07:20 87 20 100 T-Piece 5.0 28 94 22 100 03/26/19 07:20 100 T-Piece 5.0 28 03/26/19 07:00 79 23 143/103 (116) 100 03/26/19 06:00 80 26 136/58 (84) 99 03/26/19 05:00 78 24 135/58 (83) 100 03/26/19 04:00 T-piece 6.0 T-piece 6.0 03/26/19 04:00 28 03/26/19 04:00 98.9 83 23 122/54 (76) 99 03/26/19 04:00 83 03/26/19 03:11 79 22 100 T-Piece 5.0 28 78 24 100 03/26/19 03:00 92 20 131/59 (83) 96 03/26/19 02:00 78 23 118/50 (72) 99 03/26/19 01:19 100 T-Piece 5.0 28 03/26/19 01:00 79 22 123/60 (81) 100 03/26/19 00:00 T-piece 6.0 T-piece 6.0 03/26/19 00:00 28 03/26/19 00:00 73 03/26/19 00:00 98.6 73 22 105/50 (68) 100 03/25/19 23:42 79 19 100 T-Piece 5.0 28 75 24 100 03/25/19 23:00 72 22 112/49 (70) 98 Intake and Output 03/25/19 03/26/19 19:00 07:00 Intake Total 720 ml 840 ml Output Total 320 ml 380 ml Balance 400 ml 460 ml Free Water 60 ml 120 ml Tube Feeding 600 ml 600 ml Other 60 ml 120 ml Output Urine Total 310 ml 360 ml Gastric Drainage Total 10 ml 20 ml # Bowel Movements 2 Laboratory Tests 03/26/19 08:30: White Blood Count 12.7H, Red Blood Count 3.39L, Hemoglobin 9.3L, Hematocrit 29.1L, Mean Corpuscular Volume 86, Mean Corpuscular Hemoglobin 27.5, Mean Corpuscular Hemoglobin Concent 32.0, Red Cell Distribution Width 16.6H, Platelet Count 271, Mean Platelet Volume 6.0L, Neutrophils (%) (Auto) 53.0, Lymphocytes (%) (Auto) 35.4, Monocytes (%) (Auto) 5.1, Eosinophils (%) (Auto) 5.9H, Basophils (%) (Auto) 0.6, Sodium Level 137, Potassium Level 4.8, Chloride Level 102, Carbon Dioxide Level 32, Anion Gap 3L, Blood Urea Nitrogen 38H, Creatinine 1.1, Estimat Glomerular Filtration Rate , Glucose Level 123H, Calcium Level 9.4, Magnesium Level 2.3, Total Bilirubin 0.1L, Aspartate Amino Transf (AST/SGOT) 24, Alanine Aminotransferase (ALT/SGPT) 36, Alkaline Phosphatase 169H, Total Protein 8.7H, Albumin 3.0L, Globulin 5.7, Albumin/ Globulin Ratio 0.5L Height (Feet): 5 Height (Inches): 4.00 Weight (Pounds): 108 Objective Debilitated AA woman non-verbal NCAT (+) trach coarse ronchi RR obese abd, (+) GJT no edema (+) contractured extremities Celio Vaughan MD Mar 26, 2019 22:27
[2019-03-27] VITALS (24 sets, daily range): BP systolic 90–164; BP diastolic 40–83
--- NOTE | 2019-03-27 | NUR ---
NURSE NOTES: asleep at interval iv infusing well no acute distress noted reposition and suction
--- NOTE | 2019-03-27 02:00 | NUR ---
NURSE NOTES: had large soft bm complete bed bath oral care pire care done wound care and dressing change reposition and suction done
[2019-03-27] MEDS: Metoclopramide 10mg/2ml Inj IVP SCH ×4 (02:35→19:55)
[2019-03-27] MEDS: Albuterol/Ipratropium 3ml neb HHN SCH ×6 (03:21→23:20)
--- NOTE | 2019-03-27 04:00 | NUR ---
NURSE NOTES: reposition and suction iv infusing well dressing dry and intact
--- NOTE | 2019-03-27 06:00 | NUR ---
NURSE NOTES: reposition and suction no resp distress noted
--- NOTE | 2019-03-27 07:10 | NUR ---
NURSE NOTES: Received report from JEANNINE Armstrong. Patient awake and flat affect. No distress/SOB noted. Anita 6 XLT with FiO2 28% GJ tube intact and running with Glucerna 1.5 @50ml/hr via Jtube, Gtube drain by gravity. Purewick intact and connected to suction canister. Right upper arm PICC line intact and clean with TKO. Kept dry, clean, comfortable and HOB>30. Will continue plan of care.
--- NOTE | 2019-03-27 07:24 | NUR ---
HAND-OFF: Report given to .hussein mann using sbar
--- NOTE | 2019-03-27 07:37 | General Progress Note ---
Assessment/Plan Problem List: (1) Seizure ICD Codes: R56.9 - Unspecified convulsions SNOMED: 85253643 (2) Anemia ICD Codes: D64.9 - Anemia, unspecified SNOMED: 298063832 Qualifiers: Qualified Codes: D64.9 - Anemia, unspecified (3) Sepsis ICD Codes: A41.9 - Sepsis, unspecified organism SNOMED: 03417998, 387851587 Qualifiers: Qualified Codes: A41.9 - Sepsis, unspecified organism (4) Respiratory failure with hypoxia ICD Codes: J96.91 - Respiratory failure, unspecified with hypoxia SNOMED: 37704128466983420 Qualifiers: Qualified Codes: J96.21 - Acute and chronic respiratory failure with hypoxia (5) HCAP (healthcare-associated pneumonia) ICD Codes: J18.9 - Pneumonia, unspecified organism SNOMED: 752466625, 462897939 (6) Sacral decubitus ulcer ICD Codes: L89.159 - Pressure ulcer of sacral region, unspecified stage SNOMED: 935154354 (7) HTN (hypertension) ICD Codes: I10 - Essential (primary) hypertension SNOMED: 55834558 (8) Chronic vegetative state ICD Codes: R40.3 - Persistent vegetative state SNOMED: 50704882 (9) Chronic respiratory failure ICD Codes: J96.10 - Chronic respiratory failure, unspecified whether with hypoxia or hypercapnia SNOMED: 38425130 (10) Limited mobility ICD Codes: Z74.09 - Other reduced mobility SNOMED: 5548109 Status: stable, progressing Assessment/Plan: vent as needed resp rx suctioning j tube feeds g port to [facility] skin care sz rx monitor h/h dc planning Subjective ROS Limited/Unobtainable: No Constitutional: Reports: malaise, weakness HEENT: Reports: no symptoms Cardiovascular: Reports: no symptoms Respiratory: Reports: shortness of breath, SOB at rest, sputum Gastrointestinal/Abdominal: Reports: difficulty swallowing Genitourinary: Reports: no symptoms Neurologic/Psychiatric: Reports: pre-existing deficit, seizure Endocrine: Reports: no symptoms Hematologic/Lymphatic: Reports: anemia Allergies: Coded Allergies: CODEINE (Verified Allergy, Unknown, HIVES, 09/15/09) All Systems: reviewed and negative except above Subjective no events. stable on the vent, tolerating feeds, no fevers. no szs. Objective Last 24 Hour Vital Signs Date Time Temp Pulse Resp B/P (MAP) Pulse Ox O2 Delivery O2 Flow Rate FiO2 03/27/19 06:48 94 18 100 T-Piece 5.0 28 101 22 99 03/27/19 06:48 99 T-Piece 5.0 28 03/27/19 06:00 86 19 90/52 (65) 100 86 03/27/19 05:00 97.4 87 4 108/46 (66) 100 87 03/27/19 04:00 28 03/27/19 04:00 91 03/27/19 04:00 88 16 127/49 (75) 100 88 03/27/19 04:00 T-piece 6.0 T-piece 6.0 03/27/19 03:21 88 20 100 T-Piece 5.0 28 91 24 99 03/27/19 03:00 84 19 122/54 (76) 100 84 03/27/19 02:00 79 22 118/68 (85) 100 79 03/27/19 01:00 78 20 120/51 (74) 100 78 03/27/19 00:18 100 T-Piece 5.0 28 03/27/19 00:00 97.8 79 21 122/57 (78) 100 03/27/19 00:00 28 03/27/19 00:00 T-piece 6.0 T-piece 6.0 03/27/19 00:00 88 03/26/19 23:00 79 21 89/50 (63) 100 79 03/26/19 22:57 81 21 99 T-Piece 5.0 28 80 22 99 03/26/19 22:00 83 16 124/53 (76) 99 03/26/19 21:00 109 22 158/61 (93) 99 03/26/19 20:00 28 03/26/19 20:00 T-piece 6.0 T-piece 6.0 03/26/19 20:00 98.6 76 22 137/52 (80) 100 03/26/19 20:00 76 03/26/19 19:12 98 T-Piece 5.0 28 03/26/19 19:12 90 18 100 T-Piece 5.0 28 85 23 98 03/26/19 19:00 83 22 131/59 (83) 100 03/26/19 18:00 82 24 134/57 (82) 100 03/26/19 17:00 82 20 125/58 (80) 99 03/26/19 16:00 T-piece 6.0 T-piece 6.0 03/26/19 16:00 28 03/26/19 16:00 98.8 111 26 136/67 (90) 96 03/26/19 16:00 88 03/26/19 15:00 102 20 96/59 (71) 99 03/26/19 14:00 78 21 97/47 (64) 100 03/26/19 13:25 100 T-Piece 5.0 28 03/26/19 13:00 74 19 128/55 (79) 100 03/26/19 12:01 73 03/26/19 12:00 T-piece 6.0 T-piece 6.0 03/26/19 12:00 28 03/26/19 12:00 98.6 76 22 112/51 (71) 100 03/26/19 11:00 90 19 139/105 (116) 100 03/26/19 10:57 80 22 100 T-Piece 5.0 28 83 20 100 03/26/19 10:00 80 20 141/53 (82) 100 03/26/19 09:00 82 25 134/58 (83) 100 03/26/19 08:00 28 03/26/19 08:00 T-piece 6.0 T-piece 6.0 03/26/19 08:00 97.8 75 21 138/51 (80) 100 03/26/19 07:59 77 Intake and Output 03/26/19 03/27/19 19:00 07:00 Intake Total 880 ml 790 ml Output Total 575 ml 420 ml Balance 305 ml 370 ml Free Water 240 ml 240 ml Tube Feeding 600 ml 550 ml Other 40 ml Output Urine Total 475 ml 420 ml Gastric Drainage Total 100 ml # Bowel Movements 1 Laboratory Tests 03/26/19 08:30: White Blood Count 12.7H, Red Blood Count 3.39L, Hemoglobin 9.3L, Hematocrit 29.1L, Mean Corpuscular Volume 86, Mean Corpuscular Hemoglobin 27.5, Mean Corpuscular Hemoglobin Concent 32.0, Red Cell Distribution Width 16.6H, Platelet Count 271, Mean Platelet Volume 6.0L, Neutrophils (%) (Auto) 53.0, Lymphocytes (%) (Auto) 35.4, Monocytes (%) (Auto) 5.1, Eosinophils (%) (Auto) 5.9H, Basophils (%) (Auto) 0.6, Sodium Level 137, Potassium Level 4.8, Chloride Level 102, Carbon Dioxide Level 32, Anion Gap 3L, Blood Urea Nitrogen 38H, Creatinine 1.1, Estimat Glomerular Filtration Rate , Glucose Level 123H, Calcium Level 9.4, Magnesium Level 2.3, Total Bilirubin 0.1L, Aspartate Amino Transf (AST/SGOT) 24, Alanine Aminotransferase (ALT/SGPT) 36, Alkaline Phosphatase 169H, Total Protein 8.7H, Albumin 3.0L, Globulin 5.7, Albumin/ Globulin Ratio 0.5L Height (Feet): 5 Height (Inches): 4.00 Weight (Pounds): 116 Objective General Appearance: WD/WN, confused. on trach collar Neck: supple Cardiovascular: normal rate, regular rhythm Respiratory/Chest: chest wall non-tender, rhonchi - bilaterally(minimal) Abdomen: normal bowel sounds, non tender, soft, no organomegaly Edema: no edema noted Arm (L), no edema noted Arm (R), no edema noted Leg (L), no edema noted Leg (R), no edema noted Pedal (L), no edema noted Pedal (R), no edema noted Generalized Neurologic: disoriented, unresponsive, aphasia Irvin Beltrán MD Mar 27, 2019 07:37
--- NOTE | 2019-03-27 07:42 | NUR ---
NURSE NOTES: Seen by Dr. Beltrán and assessed patient. No new orders at this time.
[2019-03-27] MEDS: Bacitracin Oint 15gm Tube TOPIC SCH ×3 (08:18→17:47)
[2019-03-27] MEDS: levETIRAcetam 500mg/5ml Liquid GT SCH ×2 (08:18→20:29)
[2019-03-27] MEDS: Heparin 5000 units/ml inj SUBQ SCH ×2 (08:19→20:31)
--- NOTE | 2019-03-27 09:02 | NUR ---
NURSE NOTES: All due meds given and flushed 60cc of water to each port. Kept dry, clean, comfortable and HOB>30.
--- NOTE | 2019-03-27 10:17 | Nephrology Progress Note ---
Assessment/Plan Problem List: (1) Acute renal failure (ARF) Assessment: Cr stable (2) Chronic respiratory failure (3) Anemia (4) Sepsis Assessment Acute renal failure Respiratory failure - Trach Low Mag- Low k , Low Na Anemia UTI / Sepsis Proteinuria / HypoAlbuminemia high Trigs Sz decubs bed bound DNR Plan Hold KCL now has JT bolus Albumin as needed K and Mag and Phos supplement as needed Hydrate as needed Urine studies avoid Nephrotoxics mag K Phos supplements as needed monitor renal parameters Subjective ROS Limited/Unobtainable: Yes Objective Objective Last 24 Hour Vital Signs Date Time Temp Pulse Resp B/P (MAP) Pulse Ox O2 Delivery O2 Flow Rate FiO2 03/27/19 09:00 82 21 118/59 (78) 100 82 03/27/19 08:00 28 03/27/19 08:00 T-piece 6.0 T-piece 6.0 03/27/19 08:00 98.3 81 20 121/53 (75) 100 81 03/27/19 07:00 77 19 134/57 (82) 100 77 03/27/19 06:48 94 18 100 T-Piece 5.0 28 101 22 99 03/27/19 06:48 99 T-Piece 5.0 03/27/19 06:00 86 19 90/52 (65) 100 86 03/27/19 05:00 97.4 87 4 108/46 (66) 100 87 03/27/19 04:00 28 03/27/19 04:00 91 03/27/19 04:00 88 16 127/49 (75) 100 88 03/27/19 04:00 T-piece 6.0 T-piece 6.0 03/27/19 03:21 88 20 100 T-Piece 5.0 28 91 24 99 03/27/19 03:00 84 19 122/54 (76) 100 84 03/27/19 02:00 79 22 118/68 (85) 100 79 03/27/19 01:00 78 20 120/51 (74) 100 78 03/27/19 00:18 100 T-Piece 5.0 28 03/27/19 00:00 97.8 79 21 122/57 (78) 100 03/27/19 00:00 28 03/27/19 00:00 T-piece 6.0 T-piece 6.0 03/27/19 00:00 88 03/26/19 23:00 79 21 89/50 (63) 100 79 03/26/19 22:57 81 21 99 T-Piece 5.0 28 80 22 99 03/26/19 22:00 83 16 124/53 (76) 99 03/26/19 21:00 109 22 158/61 (93) 99 03/26/19 20:00 28 03/26/19 20:00 T-piece 6.0 T-piece 6.0 03/26/19 20:00 98.6 76 22 137/52 (80) 100 03/26/19 20:00 76 03/26/19 19:12 98 T-Piece 5.0 28 03/26/19 19:12 90 18 100 T-Piece 5.0 28 85 23 98 03/26/19 19:00 83 22 131/59 (83) 100 03/26/19 18:00 82 24 134/57 (82) 100 03/26/19 17:00 82 20 125/58 (80) 99 03/26/19 16:00 T-piece 6.0 T-piece 6.0 03/26/19 16:00 28 03/26/19 16:00 98.8 111 26 136/67 (90) 96 03/26/19 16:00 88 03/26/19 15:00 102 20 96/59 (71) 99 03/26/19 14:00 78 21 97/47 (64) 100 03/26/19 13:25 100 T-Piece 5.0 28 03/26/19 13:00 74 19 128/55 (79) 100 03/26/19 12:01 73 03/26/19 12:00 T-piece 6.0 T-piece 6.0 03/26/19 12:00 28 03/26/19 12:00 98.6 76 22 112/51 (71) 100 03/26/19 11:00 90 19 139/105 (116) 100 03/26/19 10:57 80 22 100 T-Piece 5.0 28 83 20 100 Intake and Output 03/26/19 03/27/19 19:00 07:00 Intake Total 880 ml 840 ml Output Total 575 ml 450 ml Balance 305 ml 390 ml Free Water 240 ml 240 ml Tube Feeding 600 ml 600 ml Other 40 ml Output Urine Total 475 ml 450 ml Gastric Drainage Total 100 ml # Bowel Movements 1 Height (Feet): 5 Height (Inches): 4.00 Weight (Pounds): 116 General Appearance: no apparent distress EENT: other - trach to O2 Cardiovascular: normal rate Respiratory/Chest: decreased breath sounds Abdomen: soft Objective no change Eric Cortez MD Mar 27, 2019 10:17
--- NOTE | 2019-03-27 10:34 | NUR ---
NURSE NOTES: Trach and oral suction provided.
--- NOTE | 2019-03-27 11:59 | NUR ---
NURSE NOTES: Repositioned patient and provided trach suction.
--- NOTE | 2019-03-27 13:15 | NUR ---
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 97.4 HR 86 RR 16 B/P 90/52 T-PIECE FIO2 28% IS: HEPARIN SUBC KEPPRA REGLAN ICU STATUS
--- NOTE | 2019-03-27 14:00 | NUR ---
NURSE NOTES: Repositioned patient and provided suction.
--- NOTE | 2019-03-27 16:02 | NUR ---
NURSE NOTES: Bed bath and oral care given.
--- NOTE | 2019-03-27 16:07 | Surgery Progress Note ---
Surgery Progress Note Subjective Additional Comments stable comfortable labs noted exam unchanged Objective Last 24 Hour Vital Signs Date Time Temp Pulse Resp B/P (MAP) Pulse Ox O2 Delivery O2 Flow Rate FiO2 03/27/19 15:00 101 29 136/60 (85) 100 101 03/27/19 14:00 95 25 99/47 (64) 98 95 03/27/19 13:00 93 26 131/52 (78) 100 93 03/27/19 12:52 99 T-Piece 5.0 28 03/27/19 12:00 81 03/27/19 12:00 T-piece 6.0 T-piece 6.0 03/27/19 12:00 28 03/27/19 12:00 98.8 102 22 164/70 (101) 99 102 03/27/19 11:00 83 21 111/83 (92) 100 03/27/19 10:55 90 16 100 T-Piece 5.0 28 92 16 100 03/27/19 10:00 87 23 128/52 (77) 100 87 03/27/19 09:00 82 21 118/59 (78) 100 82 03/27/19 08:00 28 03/27/19 08:00 75 03/27/19 08:00 T-piece 6.0 T-piece 6.0 03/27/19 08:00 98.3 81 20 121/53 (75) 100 81 03/27/19 07:00 77 19 134/57 (82) 100 77 03/27/19 06:48 94 18 100 T-Piece 5.0 28 101 22 99 03/27/19 06:48 99 T-Piece 5.0 28 03/27/19 06:00 86 19 90/52 (65) 100 86 03/27/19 05:00 97.4 87 4 108/46 (66) 100 87 03/27/19 04:00 28 03/27/19 04:00 91 03/27/19 04:00 88 16 127/49 (75) 100 88 03/27/19 04:00 T-piece 6.0 T-piece 6.0 03/27/19 03:21 88 20 100 T-Piece 5.0 28 91 24 99 03/27/19 03:00 84 19 122/54 (76) 100 84 03/27/19 02:00 79 22 118/68 (85) 100 79 03/27/19 01:00 78 20 120/51 (74) 100 78 03/27/19 00:18 100 T-Piece 5.0 28 03/27/19 00:00 97.8 79 21 122/57 (78) 100 03/27/19 00:00 28 03/27/19 00:00 T-piece 6.0 T-piece 6.0 03/27/19 00:00 88 03/26/19 23:00 79 21 89/50 (63) 100 79 03/26/19 22:57 81 21 99 T-Piece 5.0 28 80 22 99 03/26/19 22:00 83 16 124/53 (76) 99 03/26/19 21:00 109 22 158/61 (93) 99 03/26/19 20:00 28 03/26/19 20:00 T-piece 6.0 T-piece 6.0 03/26/19 20:00 98.6 76 22 137/52 (80) 100 03/26/19 20:00 76 03/26/19 19:12 98 T-Piece 5.0 28 03/26/19 19:12 90 18 100 T-Piece 5.0 28 85 23 98 03/26/19 19:00 83 22 131/59 (83) 100 03/26/19 18:00 82 24 134/57 (82) 100 03/26/19 17:00 82 20 125/58 (80) 99 I&O Intake and Output 03/26/19 03/27/19 18:59 06:59 Intake Total 880 ml 840 ml Output Total 540 ml 495 ml Balance 340 ml 345 ml Free Water 240 ml 240 ml Tube Feeding 600 ml 600 ml Other 40 ml Output Urine Total 430 ml 495 ml Gastric Drainage Total 110 ml # Bowel Movements 1 Dressing: other Wound: other Drains: other Cardiovascular: RSR Respiratory: decreased breath sounds Abdomen: soft, present bowel sounds, non-distended Extremities: no tenderness, no cyanosis Plan Problems: (1) Sacral decubitus ulcer Assessment & Plan: This is a 83-year-old female with multiple medical committees that is currently admitted for medical care and management and identified to have multiple wounds requiring care. On admission patient noted to have a resolved sacral decubitus ulcer. Has had prior care and is well-healed at this time. Will ensure it does not open up again. Patient has a right ischial decubitus ulcer that is resolved. Scar intact and well formed. Will monitor to ensure it does not open up again. Patient has a left ischial decubitus ulcer that can be identified to be stage IV with palpable bone that has been resolving as noted by the periwound tissue and scar but open area approximately 1 cm x 1.5 cm few millimeters deep to bone identified. Unsure if this is been to be completely healed prior and has since opened or if has been healing at this level. No foul odor no drainage was unsure local wound care until healed Bilateral heels soft without signs of injury Resolving pressure injury L ischium(L)1.8cm x (W)1cm.Scattered biofilm at base of wound. Edges flat and adherent with surrounding hyperpigmentation. No odor or exudate noted. Sacrum is pale pink with surrounding hyperpigmentation. Hyperpigmentation R ischium with small sheared area centrally.No areas of erythema or exudate noted. Both heels are soft but blanchable. Skin Assessed under collar of trach and no evidence of skin breakdown noted. All wound Tx. are effective and continued as ordered. Pt ahs an APM/Belén mattress overlay and is being repositioned per protocols and per tolerance.No new skin concerns noted. Full thickness pressure injury L Ischium with small amt biofilm (L)1.8cm x (W) 1cm. Surrounding pink hyperpigmentation. No odor or exudate noted. [place] hyperpigmentation from previous wound noted to sacrum. Pt also noted to have Cat 2 Skin Tear dorsal L hand, L 5th metatarsal extending into palm of hand. 80% skin flap in situ.Both heels are dry firm and blanchable. No other skin concerns noted. R ischial wound has resolved. [place] epithelial with surrounding hyperpigmentation. from historical wound. Full thickness pressure injury L ischium. [place] granulation at base of wound. Borders are macerated with Surrounding hyperpigmentation.Small amt non-odorous serous exudate noted.(L)0.7cm x (W)0.8cm. Skin hyperpigmentation from historical wound noted to Sacrum. Small sheared area noted to sacrococcygeal area.(L)0.4cm x (W)0.3cm.Small amt sanguineous exudate noted. Reabsorbed blister with semi-detached dry necrotic cap noted to web space of L thumb and L index fingers extending into palm of L hand. No odor or exudate noted. Skin assessed under tracheal collar and no erythema or evidence of Skin Breakdown noted. NO new skin concerns noted . Good hand hygiene provided to both hands. R hand contracted and fisted. Fingernails trimmed. Wound care provided along with Primary nurse. Wound Tx continued as ordered. New order obtained from to apply Betadine to wound L hand Daily. Tx done as ordered. L hand wrapped with kerlix weaving kerlix between fingers to separate fingers. Moisture Barrier applied to sacrum ,R ischium. Each site covered with Optifoam drsg. Both lower ext washed and moisturized. Cavilon Skin Barrier applied to both heels.Each heel covered with Optifoam drsgs. Pt positioned with pillows and both heels off-loaded with pillow. Tx.Plan: Apply Betadine to wound L hand. Cover with Gauze and wrap with Kerlix Daily and prn. Cleanse L ischial wound with Saline. Apply Therahoney. Apply Moisture Barrier periwound. Cover with Optifoam drsgevery 3 days and prn. Apply Moisture Barrier Paste to R ischium and Sacrum. Cover each area with Optifoam drsg. Change every 3 days and prn. Apply Cavilon Skin Barrier to both heels. Cover each heel with Optifoam drsg. Change every 7 days and prn. APM/BELÉN Mattress overlay. Reposition at least every 2hours or as tolerated. Off-load heels with pillow. Cleanse Blister Dorsal and palm of L hand with saline. Versatel One Silicone Contact Layer(Applied). Apply Silvasorb Gel. Wrap with Kerlix Gauze.Change every 7 days and prn. Apply Moisture Barrier to sacrum. Cover with Optifoam drsg. Change every 3 days and prn. Cleanse L ischial wound with saline. Apply Therahoney. Apply Moisture Barrier Paste periwound. Cover with Optifoam drsg. Change every 3 days and prn. Apply Cavilon Skin Barrier to both heels. Cover each heel with Optifoam drsg. Change every 7 days and prn. APM/BELÉN Mattress overlay. Reposition at least every 2hours or as tolerated. Off-load heels with pillow. Nutritional optimization We will monitor follow with recommendations cont with above upon d/c (2) Sepsis Assessment & Plan: IV abx as per ID trend labs improving wounds unlikely etiology likely respiratory imaging noted and okay abnormal lft's stable PICC on Abx in ICU for desaturation CXR with consolidation cont with frequent suctioning d/c planning possible placement found Evidence of left lower lobe pneumonia, also previously demonstrated Gastrostomy in good position Mild diastasis of the rectus abdominis musculature again demonstrated Retrosacral decubitus changes, better depicted on prior exam which included the pelvis Small hiatal hernia with evidence of trace gastroesophageal reflux Discussed with GI. Recommend GJ family still pending decision (3) Feeding by G-tube Assessment & Plan: DAILY ESTIMATED NEEDS: Needs based on Pulmonary, wounds, bedbound/ 61kg adj 25-30 kcals/kg 8638-2674 total kcals 1.25-2 g protein/kg 76-122 g total protein 25-30 mL/kg 4691-8593 total fluid mLs NUTRITION DIAGNOSIS: * Increased kcal/prot needs R/T wound healing as evidenced by BL buttocks and sacral wound photos, refer to eval. * Swallowing difficulty R/T respiratory status as evidenced by pt on T-collar, now back the vent, PEG dep. CURRENT TF:Glucerna 1.5 @ 25ml/hr x 24 hrs - currently HELD d/t emesis ENTERAL NUTRITION RECOMMENDATIONS: Glucerna 1.5 @ 45ml/hr x 24 hrs to provide 1080ml, 1620kcal, 89g prot, 820ml free water - As medically able, rec to increase goal rate to 45ml/hr x24 hrs to meet 100% est kcal/prot needs - HOB over 30 degrees - Water flush of 170ml q 6 hrs * W/ continued regurgitation/ emesis, rec Osmolite 1.5 for GI tolerance. Rec goal of 45ml/hr to provide: 1080ml, 1620 kcal, 68g pro, 823ml free H20. * Add Prosource 1 pack daily to provide additional 11g pro. ADDITIONAL RECOMMENDATIONS: 1) Weekly weights 2) Wound healing: Add Cristian 1pkt BID w/ good TF tolerance + MVI x1 daily 3) Monitor lytes, replete as needed 4) Monitor BGs closely, need for NISS (wnl) 5) Monitor TF tolerance: rec Tf change as above if not (4) Chronic vegetative state Assessment & Plan: incontinence of urine and stool. can soil dressings. nurses doing great job with monitoring and changing prn (5) Leukocytosis Walter Madera Mar 27, 2019 16:07
[2019-03-27] MEDS ORDERED: Sterile Water Irrig 2000ml IRRIG ONE (16:22)
[2019-03-27] MEDS ORDERED: NS 275ml ONE (16:22)
--- NOTE | 2019-03-27 17:26 | NUR ---
NURSE NOTES: Daughter and significant other visited.
--- NOTE | 2019-03-27 17:39 | Pulmonolgy Critical Care Note ---
Critical Care - Asmt/Plan Assessment/Plan: Pulmonary CCM Progress Note Assessment/Plan Impression: Sepsis syndrome Pneumonia, KPC VDRF, Trach, G tube, Hypertension, Cardiac disease, Dementia, Previous CVA, Seizure disorder, Respiratory failure with hypoxia, on TC Anemia Sacral ulcer renal cyst pulmonary congestion Plan respiratory care to continue as is, TC as tolerated atropine neb therapy SNF meds as is off vent as able and has been off for several day Oxygen as needed Monitor labs daily changes noted and reviewed feeds as tolerated monitor albumin levels and provide protein and nutrition elevate head aspiration precautions Patient is a DNR. No CPR. ICU care reviewed medications/laboratory data/nursing notes/ICU care reviewed in detail note reviewed and edited care discussed with RN and RT ICU time spent 45 minutes Subjective Allergies: Coded Allergies: CODEINE (Verified Allergy, Unknown, HIVES, 09/15/09) Subjective respiratory care noted congestion- improved with atropine ICU care reviewed supportive care noted and reviewed RT care reviewed overnight care noted findings reviewed and discussed in detail with nursing and RT seen earlier this am Objective Vital Signs Noted Objective WDWN NAD contracted off vent reduced breath sounds bilaterally with some rhonchi; no wheeze [id number] without MRG NABS nontender no HSM no CC minimal nonfocal nonverbal trach and gt reviewed and edited Laboratory Tests Noted Critical Care - Objective Last 24 Hour Vital Signs Date Time Temp Pulse Resp B/P (MAP) Pulse Ox O2 Delivery O2 Flow Rate FiO2 03/27/19 16:00 28 03/27/19 16:00 T-piece 6.0 T-piece 6.0 03/27/19 16:00 98.5 96 24 96/50 (65) 98 96 03/27/19 15:00 101 29 136/60 (85) 100 101 03/27/19 14:00 95 25 99/47 (64) 98 95 03/27/19 13:00 93 26 131/52 (78) 100 93 03/27/19 12:52 99 T-Piece 5.0 28 03/27/19 12:00 81 03/27/19 12:00 T-piece 6.0 T-piece 6.0 03/27/19 12:00 28 03/27/19 12:00 98.8 102 22 164/70 (101) 99 102 03/27/19 11:00 83 21 111/83 (92) 100 03/27/19 10:55 90 16 100 T-Piece 5.0 28 92 16 100 03/27/19 10:00 87 23 128/52 (77) 100 87 03/27/19 09:00 82 21 118/59 (78) 100 82 03/27/19 08:00 28 03/27/19 08:00 75 03/27/19 08:00 T-piece 6.0 T-piece 6.0 03/27/19 08:00 98.3 81 20 121/53 (75) 100 81 03/27/19 07:00 77 19 134/57 (82) 100 77 03/27/19 06:48 94 18 100 T-Piece 5.0 28 101 22 99 03/27/19 06:48 99 T-Piece 5.0 28 03/27/19 06:00 86 19 90/52 (65) 100 86 03/27/19 05:00 97.4 87 4 108/46 (66) 100 87 03/27/19 04:00 28 03/27/19 04:00 91 03/27/19 04:00 88 16 127/49 (75) 100 88 03/27/19 04:00 T-piece 6.0 T-piece 6.0 03/27/19 03:21 88 20 100 T-Piece 5.0 28 91 24 99 03/27/19 03:00 84 19 122/54 (76) 100 84 03/27/19 02:00 79 22 118/68 (85) 100 79 03/27/19 01:00 78 20 120/51 (74) 100 78 03/27/19 00:18 100 T-Piece 5.0 28 03/27/19 00:00 97.8 79 21 122/57 (78) 100 03/27/19 00:00 28 03/27/19 00:00 T-piece 6.0 T-piece 6.0 03/27/19 00:00 88 03/26/19 23:00 79 21 89/50 (63) 100 79 03/26/19 22:57 81 21 99 T-Piece 5.0 28 80 22 99 03/26/19 22:00 83 16 124/53 (76) 99 03/26/19 21:00 109 22 158/61 (93) 99 03/26/19 20:00 28 03/26/19 20:00 T-piece 6.0 T-piece 6.0 03/26/19 20:00 98.6 76 22 137/52 (80) 100 03/26/19 20:00 76 03/26/19 19:12 98 T-Piece 5.0 28 03/26/19 19:12 90 18 100 T-Piece 5.0 28 85 23 98 03/26/19 19:00 83 22 131/59 (83) 100 03/26/19 18:00 82 24 134/57 (82) 100 Critical Care - Subjective ROS Limited/Unobtainable: No FI02: 28 Vent Support Mode: CPAP Vent Tidal Volume: 450 Sputum Amount: Moderate PEEP: 5.0 PIP: 19 Tube Feeding Amount: 50 I&O: Intake and Output 03/26/19 03/27/19 19:00 07:00 Intake Total 880 ml 840 ml Output Total 575 ml 450 ml Balance 305 ml 390 ml Free Water 240 ml 240 ml Tube Feeding 600 ml 600 ml Other 40 ml Output Urine Total 475 ml 450 ml Gastric Drainage Total 100 ml # Bowel Movements 1 ET-Tube: 6.0 Bg Moffett MD Mar 27, 2019 17:39
--- NOTE | 2019-03-27 18:05 | NUR ---
NURSE NOTES: Repositioned patient and suction given. Daughter left.
--- NOTE | 2019-03-27 19:12 | NUR ---
HAND-OFF: Report given to JEANNINE Armstrong. Endorsed plan of care.
--- NOTE | 2019-03-27 19:17 | NUR ---
NURSE NOTES: received report from hussein rn pt non verbal does not follows command upper extremities contracted lower extremities stiff iv infusing rt upper arum tko dressing dry and intact [id number] shiley 6 with 28 0/0 fio2 o2 sat 100 0/0 tube feeding infusing well residual reposition and suction
[2019-03-27] MEDS: Dyna-Hex 2% Top Sol 2oz TOPIC SCH (19:55)
--- NOTE | 2019-03-27 21:36 | General Progress Note ---
Assessment/Plan Status: stable, progressing Assessment/Plan: Assessment - N/V - resolved with G --> J conversion - now tolerating TF at goal - suction gently - Elevated Alk phos / LFT - CT negative - abd U/S negative - check hepatitis serologies - negative - Anemia with OB (-) stools - Resp failure, s/p Trach - dysphagia, s/p PEG --> s/p GT change--> GJ tube - OBS, vegetative unresponsive state, bedbound state, contracted extremities, - minor GT tract inflammation / infection - treat locally - poor Prognosis Recommendations - laxative PRN - antibiotic ointment to GJT site PRN - aspiration precautions - elevate HOB - continue TF Subjective Allergies: Coded Allergies: CODEINE (Verified Allergy, Unknown, HIVES, 09/15/09) Subjective seen in am tolerating TF d/w RN Objective Last 24 Hour Vital Signs Date Time Temp Pulse Resp B/P (MAP) Pulse Ox O2 Delivery O2 Flow Rate FiO2 03/27/19 21:00 82 24 116/40 (65) 99 82 03/27/19 20:00 T-piece 6.0 T-piece 6.0 03/27/19 20:00 82 03/27/19 20:00 97.8 91 24 142/53 (82) 100 91 03/27/19 20:00 28 03/27/19 19:33 100 T-Piece 5.0 28 03/27/19 19:33 95 25 100 T-Piece 5.0 28 96 23 100 03/27/19 19:00 93 23 134/61 (85) 99 93 03/27/19 18:00 89 22 119/60 (79) 100 03/27/19 17:00 88 24 134/51 (78) 99 03/27/19 16:00 96 03/27/19 16:00 28 03/27/19 16:00 T-piece 6.0 T-piece 6.0 03/27/19 16:00 98.5 96 24 96/50 (65) 98 96 03/27/19 15:00 101 29 136/60 (85) 100 101 03/27/19 14:00 95 25 99/47 (64) 98 95 03/27/19 13:00 93 26 131/52 (78) 100 93 03/27/19 12:52 99 T-Piece 5.0 28 03/27/19 12:00 81 03/27/19 12:00 T-piece 6.0 T-piece 6.0 03/27/19 12:00 28 03/27/19 12:00 98.8 102 22 164/70 (101) 99 102 03/27/19 11:00 83 21 111/83 (92) 100 03/27/19 10:55 90 16 100 T-Piece 5.0 28 92 16 100 03/27/19 10:00 87 23 128/52 (77) 100 87 03/27/19 09:00 82 21 118/59 (78) 100 82 03/27/19 08:00 28 03/27/19 08:00 75 03/27/19 08:00 T-piece 6.0 T-piece 6.0 03/27/19 08:00 98.3 81 20 121/53 (75) 100 81 03/27/19 07:00 77 19 134/57 (82) 100 77 03/27/19 06:48 94 18 100 T-Piece 5.0 28 101 22 99 03/27/19 06:48 99 T-Piece 5.0 28 03/27/19 06:00 86 19 90/52 (65) 100 86 03/27/19 05:00 97.4 87 4 108/46 (66) 100 87 03/27/19 04:00 28 03/27/19 04:00 91 03/27/19 04:00 88 16 127/49 (75) 100 88 03/27/19 04:00 T-piece 6.0 T-piece 6.0 03/27/19 03:21 88 20 100 T-Piece 5.0 28 91 24 99 03/27/19 03:00 84 19 122/54 (76) 100 84 03/27/19 02:00 79 22 118/68 (85) 100 79 03/27/19 01:00 78 20 120/51 (74) 100 78 03/27/19 00:18 100 T-Piece 5.0 28 03/27/19 00:00 97.8 79 21 122/57 (78) 100 03/27/19 00:00 28 03/27/19 00:00 T-piece 6.0 T-piece 6.0 03/27/19 00:00 88 12/26/19 23:00 79 21 89/50 (63) 100 79 03/26/19 22:57 81 21 99 T-Piece 5.0 28 80 22 99 03/26/19 22:00 83 16 124/53 (76) 99 Intake and Output 03/26/19 03/27/19 19:00 07:00 Intake Total 880 ml 840 ml Output Total 575 ml 450 ml Balance 305 ml 390 ml Free Water 240 ml 240 ml Tube Feeding 600 ml 600 ml Other 40 ml Output Urine Total 475 ml 450 ml Gastric Drainage Total 100 ml # Bowel Movements 1 Height (Feet): 5 Height (Inches): 4.00 Weight (Pounds): 116 Objective Debilitated AA woman non-verbal NCAT (+) trach coarse ronchi RR obese abd, (+) GJT no edema (+) contractured extremities Celio Vaughan MD Mar 27, 2019 21:36
--- NOTE | 2019-03-27 22:00 | NUR ---
NURSE NOTES: reposition and suction tolerating tube feeding no residual
[2019-03-28] VITALS (24 sets, daily range): BP systolic 87–162; BP diastolic 43–89
--- NOTE | 2019-03-28 | NUR ---
NURSE NOTES: reposition and suction
--- NOTE | 2019-03-28 02:00 | NUR ---
NURSE NOTES: reposition and suction oral care done
[2019-03-28] MEDS: Metoclopramide 10mg/2ml Inj IVP SCH ×4 (02:12→19:42)
[2019-03-28] MEDS: Albuterol/Ipratropium 3ml neb HHN SCH ×5 (03:33→23:25)
--- NOTE | 2019-03-28 04:00 | NUR ---
NURSE NOTES: complete bed bath care and oral back fatou care reposition and suction
--- NOTE | 2019-03-28 06:00 | NUR ---
NURSE NOTES: asleep no acute distress noted reposition and suction
--- NOTE | 2019-03-28 07:40 | NUR ---
NURSE NOTES: Received bedside report from Patti PAEZ. Pt. in bed, eyes opens. Non-verbal. No sign of distress. On T-piece Fi O2 28%. No grimacing noted. HOB elevated at all times. On JTF patent/intact running Glucerna 1.2 at 50cc/hr. Tolerating well. GT in placed patent/intact draining on gravity. PICC line at right upper arm with 2 lumen in placed patent/intact TKO. Bed in low position, locked. Call light within reach. Will cont. to monitor.
--- NOTE | 2019-03-28 07:41 | NUR ---
HAND-OFF: Report given to isatu mann using s bar.
--- NOTE | 2019-03-28 08:32 | General Progress Note ---
Assessment/Plan Status: stable, progressing Assessment/Plan: Assessment - N/V, periodic, including suctioning of feeds from mouth - suspect due to gastroparesis, possibly also from suctioning reflex - DTR declines GJ conversion. - - will Rx with reglan, short term - suction gently - Elevated Alk phos / LFT - CT negative - abd U/S negative - check hepatitis serologies - negative - Anemia with OB (-) stools - Resp failure, s/p Trach - dysphagia, s/p PEG --> s/p GT change - OBS - minor GT tract inflammation / infection - poor Px Recommendations - laxative PRN - antibiotic ointment to GT site PRN - aspiration precautions - elevate HOB - PPI -GTF Subjective ROS Limited/Unobtainable: No Allergies: Coded Allergies: CODEINE (Verified Allergy, Unknown, HIVES, 09/15/09) Objective Last 24 Hour Vital Signs Date Time Temp Pulse Resp B/P (MAP) Pulse Ox O2 Delivery O2 Flow Rate FiO2 03/28/19 08:00 69 18 112/83 (93) 100 69 03/28/19 08:00 28 03/28/19 07:45 75 23 100 T-Piece 5.0 28 77 21 100 03/28/19 07:45 100 T-Piece 5.0 03/28/19 07:00 75 20 120/43 (68) 100 75 03/28/19 06:00 98.4 71 20 98/46 (63) 99 71 03/28/19 05:00 85 21 120/55 (76) 100 85 03/28/19 04:00 28 03/28/19 04:00 78 03/28/19 04:00 T-piece 6.0 T-piece 6.0 03/28/19 04:00 78 21 104/49 (67) 97 03/28/19 03:35 78 25 100 T-Piece 5.0 28 71 20 100 03/28/19 03:00 77 21 127/54 (78) 100 03/28/19 02:00 100 21 110/50 (70) 99 03/28/19 01:45 100 T-Piece 5.0 03/28/19 01:00 74 19 125/73 (90) 98 03/28/19 00:00 75 03/28/19 00:00 98.0 78 20 116/58 (77) 100 03/28/19 00:00 T-piece 6.0 T-piece 6.0 03/28/19 00:00 28 03/27/19 23:20 79 24 100 T-Piece 5.0 28 80 23 100 03/27/19 23:00 81 23 98/50 (66) 100 03/27/19 22:00 79 24 119/51 (73) 100 03/27/19 21:00 82 24 116/40 (65) 99 82 03/27/19 20:00 T-piece 6.0 T-piece 6.0 03/27/19 20:00 82 03/27/19 20:00 97.8 91 24 142/53 (82) 100 91 03/27/19 20:00 28 03/27/19 19:33 100 T-Piece 5.0 28 03/27/19 19:33 95 25 100 T-Piece 5.0 28 96 23 100 03/27/19 19:00 93 23 134/61 (85) 99 93 03/27/19 18:00 89 22 119/60 (79) 100 03/27/19 17:00 88 24 134/51 (78) 99 03/27/19 16:00 96 03/27/19 16:00 28 03/27/19 16:00 T-piece 6.0 T-piece 6.0 03/27/19 16:00 98.5 96 24 96/50 (65) 98 96 03/27/19 15:00 101 29 136/60 (85) 100 101 03/27/19 14:00 95 25 99/47 (64) 98 95 03/27/19 13:00 93 26 131/52 (78) 100 93 03/27/19 12:52 99 T-Piece 5.0 28 03/27/19 12:00 81 03/27/19 12:00 T-piece 6.0 T-piece 6.0 03/27/19 12:00 28 03/27/19 12:00 98.8 102 22 164/70 (101) 99 102 03/27/19 11:00 83 21 111/83 (92) 100 03/27/19 10:55 90 16 100 T-Piece 5.0 28 92 16 100 03/27/19 10:00 87 23 128/52 (77) 100 87 03/27/19 09:00 82 21 118/59 (78) 100 82 Intake and Output 03/27/19 03/28/19 19:00 07:00 Intake Total 840 ml 840 ml Output Total 425 ml 430 ml Balance 415 ml 410 ml Free Water 240 ml 240 ml Tube Feeding 600 ml 600 ml Output Urine Total 375 ml 430 ml Gastric Drainage Total 50 ml Height (Feet): 5 Height (Inches): 4.00 Weight (Pounds): 117 General Appearance: lethargic EENT: normal ENT inspection Neck: supple Cardiovascular: normal rate Respiratory/Chest: decreased breath sounds Abdomen: normal bowel sounds, non tender, soft Extremities: non-tender Gary Guzman MD Mar 28, 2019 08:32
[2019-03-28] MEDS: levETIRAcetam 500mg/5ml Liquid GT SCH ×2 (08:57→20:36)
[2019-03-28] MEDS: Heparin 5000 units/ml inj SUBQ SCH ×2 (09:00→20:35)
[2019-03-28] MEDS: Bacitracin Oint 15gm Tube TOPIC SCH ×3 (09:00→18:04)
--- NOTE | 2019-03-28 09:00 | NUR ---
NURSE NOTES: Turned and reposition. Suction as ordered. Tolerating well.
--- NOTE | 2019-03-28 09:24 | General Progress Note ---
Assessment/Plan Problem List: (1) Seizure ICD Codes: R56.9 - Unspecified convulsions SNOMED: 47173500 (2) Anemia ICD Codes: D64.9 - Anemia, unspecified SNOMED: 365619019 Qualifiers: Qualified Codes: D64.9 - Anemia, unspecified (3) Sepsis ICD Codes: A41.9 - Sepsis, unspecified organism SNOMED: 45705359, 244170208 Qualifiers: Qualified Codes: A41.9 - Sepsis, unspecified organism (4) Respiratory failure with hypoxia ICD Codes: J96.91 - Respiratory failure, unspecified with hypoxia SNOMED: 22470290377716112 Qualifiers: Qualified Codes: J96.21 - Acute and chronic respiratory failure with hypoxia (5) HCAP (healthcare-associated pneumonia) ICD Codes: J18.9 - Pneumonia, unspecified organism SNOMED: 631880150, 693165983 (6) Sacral decubitus ulcer ICD Codes: L89.159 - Pressure ulcer of sacral region, unspecified stage SNOMED: 001586885 (7) HTN (hypertension) ICD Codes: I10 - Essential (primary) hypertension SNOMED: 33954826 (8) Chronic vegetative state ICD Codes: R40.3 - Persistent vegetative state SNOMED: 84706362 (9) Chronic respiratory failure ICD Codes: J96.10 - Chronic respiratory failure, unspecified whether with hypoxia or hypercapnia SNOMED: 48736878 (10) Limited mobility ICD Codes: Z74.09 - Other reduced mobility SNOMED: 6926563 Status: stable, progressing Assessment/Plan: vent as needed resp rx suctioning j tube feeds g port to [facility] sz rx monitor h/h dc planning Subjective ROS Limited/Unobtainable: No Constitutional: Reports: malaise, weakness HEENT: Reports: no symptoms Cardiovascular: Reports: no symptoms Respiratory: Reports: cough, shortness of breath Gastrointestinal/Abdominal: Reports: difficulty swallowing Genitourinary: Reports: no symptoms Neurologic/Psychiatric: Reports: pre-existing deficit, seizure Endocrine: Reports: no symptoms Hematologic/Lymphatic: Reports: anemia Allergies: Coded Allergies: CODEINE (Verified Allergy, Unknown, HIVES, 09/15/09) All Systems: reviewed and negative except above Subjective no events. stable on the vent, tolerating feeds, no fevers. no szs. Objective Last 24 Hour Vital Signs Date Time Temp Pulse Resp B/P (MAP) Pulse Ox O2 Delivery O2 Flow Rate FiO2 03/28/19 09:00 82 22 162/89 (113) 100 82 03/28/19 08:00 69 18 112/83 (93) 100 69 03/28/19 08:00 28 03/28/19 08:00 T-piece 6.0 T-piece 6.0 03/28/19 07:45 75 23 100 T-Piece 5.0 28 77 21 100 03/28/19 07:45 100 T-Piece 5.0 28 03/28/19 07:00 75 20 120/43 (68) 100 75 03/28/19 06:00 98.4 71 20 98/46 (63) 99 71 03/28/19 05:00 85 21 120/55 (76) 100 85 03/28/19 04:00 28 03/28/19 04:00 78 03/28/19 04:00 T-piece 6.0 T-piece 6.0 03/28/19 04:00 78 21 104/49 (67) 97 03/28/19 03:35 78 25 100 T-Piece 5.0 71 20 100 03/28/19 03:00 77 21 127/54 (78) 100 03/28/19 02:00 100 21 110/50 (70) 99 03/28/19 01:45 100 T-Piece 5.0 03/28/19 01:00 74 19 125/73 (90) 98 03/28/19 00:00 75 03/28/19 00:00 98.0 78 20 116/58 (77) 100 03/28/19 00:00 T-piece 6.0 T-piece 6.0 03/28/19 00:00 28 03/27/19 23:20 79 24 100 T-Piece 5.0 28 80 23 100 03/27/19 23:00 81 23 98/50 (66) 100 03/27/19 22:00 79 24 119/51 (73) 100 03/27/19 21:00 82 24 116/40 (65) 99 82 03/27/19 20:00 T-piece 6.0 T-piece 6.0 03/27/19 20:00 82 03/27/19 20:00 97.8 91 24 142/53 (82) 100 91 03/27/19 20:00 28 03/27/19 19:33 100 T-Piece 5.0 28 03/27/19 19:33 95 25 100 T-Piece 5.0 28 96 23 100 03/27/19 19:00 93 23 134/61 (85) 99 93 03/27/19 18:00 89 22 119/60 (79) 100 03/27/19 17:00 88 24 134/51 (78) 99 03/27/19 16:00 96 03/27/19 16:00 28 03/27/19 16:00 T-piece 6.0 T-piece 6.0 03/27/19 16:00 98.5 96 24 96/50 (65) 98 96 03/27/19 15:00 101 29 136/60 (85) 100 101 03/27/19 14:00 95 25 99/47 (64) 98 95 03/27/19 13:00 93 26 131/52 (78) 100 93 03/27/19 12:52 99 T-Piece 5.0 28 03/27/19 12:00 81 03/27/19 12:00 T-piece 6.0 T-piece 6.0 03/27/19 12:00 28 03/27/19 12:00 98.8 102 22 164/70 (101) 99 102 03/27/19 11:00 83 21 111/83 (92) 100 03/27/19 10:55 90 16 100 T-Piece 5.0 28 92 16 100 03/27/19 10:00 87 23 128/52 (77) 100 87 Intake and Output 03/27/19 03/28/19 19:00 07:00 Intake Total 840 ml 840 ml Output Total 425 ml 430 ml Balance 415 ml 410 ml Free Water 240 ml 240 ml Tube Feeding 600 ml 600 ml Output Urine Total 375 ml 430 ml Gastric Drainage Total 50 ml Height (Feet): 5 Height (Inches): 4.00 Weight (Pounds): 117 Objective General Appearance: WD/WN, confused. on trach collar Neck: supple Cardiovascular: normal rate, regular rhythm Respiratory/Chest: chest wall non-tender, rhonchi - bilaterally(minimal) Abdomen: normal bowel sounds, non tender, soft, no organomegaly Edema: no edema noted Arm (L), no edema noted Arm (R), no edema noted Leg (L), no edema noted Leg (R), no edema noted Pedal (L), no edema noted Pedal (R), no edema noted Generalized Neurologic: disoriented, unresponsive, aphasia Irvin Beltrán MD Mar 28, 2019 09:24
--- NOTE | 2019-03-28 10:00 | NUR ---
NURSE NOTES: Wound pictures taken and clean pt. Suctioned as ordered and RT gave breathing tx.
--- NOTE | 2019-03-28 10:57 | Infectious Diseases Prog Note ---
"Assessment/Plan Assessment/Plan antibiotics : none A 1. klebsiella | providencia pneumonia s/p rx 2. respiratory failure 3. hypertension 4. CVA 5. dementia 6. sacral decubitus ulcer 7. rectal VRE colonization P 1. observe off antibiotics 2. dc planned Subjective ROS Limited/Unobtainable: Yes Allergies: Coded Allergies: CODEINE (Verified Allergy, Unknown, HIVES, 09/15/09) Objective Vital Signs Last 24 Hour Vital Signs Date Time Temp Pulse Resp B/P (MAP) Pulse Ox O2 Delivery O2 Flow Rate FiO2 03/28/19 10:00 81 20 114/68 (83) 100 81 03/28/19 09:00 82 22 162/89 (113) 100 82 03/28/19 08:00 70 03/28/19 08:00 69 18 112/83 (93) 100 69 03/28/19 08:00 28 03/28/19 08:00 T-piece 6.0 T-piece 6.0 03/28/19 07:45 75 23 100 T-Piece 5.0 77 21 100 03/28/19 07:45 100 T-Piece 5.0 03/28/19 07:00 75 20 120/43 (68) 100 75 03/28/19 06:00 98.4 71 20 98/46 (63) 99 71 03/28/19 05:00 85 21 120/55 (76) 100 85 03/28/19 04:00 28 03/28/19 04:00 78 03/28/19 04:00 T-piece 6.0 T-piece 6.0 03/28/19 04:00 78 21 104/49 (67) 97 03/28/19 03:35 78 25 100 T-Piece 5.0 71 20 100 03/28/19 03:00 77 21 127/54 (78) 100 03/28/19 02:00 100 21 110/50 (70) 99 03/28/19 01:45 100 T-Piece 5.0 03/28/19 01:00 74 19 125/73 (90) 98 03/28/19 00:00 75 03/28/19 00:00 98.0 78 20 116/58 (77) 100 03/28/19 00:00 T-piece 6.0 T-piece 6.0 03/28/19 00:00 28 03/27/19 23:20 79 24 100 T-Piece 5.0 28 80 23 100 03/27/19 23:00 81 23 98/50 (66) 100 03/27/19 22:00 79 24 119/51 (73) 100 03/27/19 21:00 82 24 116/40 (65) 99 82 03/27/19 20:00 T-piece 6.0 T-piece 6.0 03/27/19 20:00 82 03/27/19 20:00 97.8 91 24 142/53 (82) 100 91 03/27/19 20:00 28 03/27/19 19:33 100 T-Piece 5.0 28 03/27/19 19:33 95 25 100 T-Piece 5.0 28 96 23 100 03/27/19 19:00 93 23 134/61 (85) 99 93 03/27/19 18:00 89 22 119/60 (79) 100 03/27/19 17:00 88 24 134/51 (78) 99 03/27/19 16:00 96 03/27/19 16:00 28 03/27/19 16:00 T-piece 6.0 T-piece 6.0 03/27/19 16:00 98.5 96 24 96/50 (65) 98 96 03/27/19 15:00 101 29 136/60 (85) 100 101 03/27/19 14:00 95 25 99/47 (64) 98 95 03/27/19 13:00 93 26 131/52 (78) 100 93 03/27/19 12:52 99 T-Piece 5.0 28 03/27/19 12:00 81 03/27/19 12:00 T-piece 6.0 T-piece 6.0 03/27/19 12:00 28 03/27/19 12:00 98.8 102 22 164/70 (101) 99 102 03/27/19 11:00 83 21 111/83 (92) 100 Height (Feet): 5 Height (Inches): 4.00 Weight (Pounds): 117 HEENT: status post trach Respiratory/Chest: lungs clear Cardiovascular: normal rate, regular rhythm, no gallop/murmur Abdomen: soft, non tender, other - GT Extremities: no edema, other - right arm PICC Current Medications Medications (Trade) Dose Ordered Sig/Maicol Route PRN Reason Start Time Stop Time Status Last Admin Dose Admin Acetaminophen (Tylenol) 650 mg Q6H PRN GT Mild Pain/Temp > 100.5 03/23/19 15:15 04/22/19 15:14 03/23/19 19:09 Albuterol/ Ipratropium (Albuterol/ Ipratropium) 3 ml Q4HRT HHN 03/25/19 11:00 03/30/19 10:59 03/28/19 07:48 Atropine Sulfate (Atropine Opth Adriana) 2 drop TID SL 03/07/19 09:00 04/06/19 08:59 03/28/19 08:58 Bacitracin (Bacitracin 15gm tube) 1 applic THREE TIMES A DAY TOPIC 02/28/19 18:30 03/30/19 18:29 03/28/19 09:00 Chlorhexidine Gluconate (Cesilia-Hex 2%) 1 applic DAILY@1999 TOPIC 03/12/19 20:00 04/11/19 19:59 03/27/19 19:55 Heparin Sodium (Porcine) (Heparin 5000 units/ml) 5,000 units EVERY 12 HOURS SUBQ 03/22/19 21:00 03/31/19 23:14 03/28/19 09:00 Hydralazine HCl (Apresoline) 10 mg Q4H PRN IV For High Blood Pressure 03/12/19 09:00 04/11/19 08:59 03/18/19 18:17 Lansoprazole (Prevacid) 30 mg Q12HR JT 03/25/19 21:00 04/24/19 20:59 03/28/19 08:57 Levetiracetam (Keppra) 750 mg Q12HR GT 03/22/19 21:00 03/31/19 23:29 03/28/19 08:57 Lorazepam (Ativan 2mg/ml 1ml) 0.5 mg Q2H PRN IV For Seizures 03/23/19 15:15 03/30/19 15:14 Metoclopramide HCl (Reglan) 5 mg Q6H IVP 03/24/19 20:00 04/23/19 19:59 03/28/19 08:57 Ondansetron HCl (Zofran) 4 mg Q4H PRN IVP Nausea & Vomiting 03/18/19 18:15 04/17/19 18:14 03/21/19 08:27 Geovany Yang MD Mar 28, 2019 10:57"
--- NOTE | 2019-03-28 11:00 | NUR ---
NURSE NOTES: Remain stable. V/S WNL. No sign of distress. No grimacing noted.
--- NOTE | 2019-03-28 11:47 | Nephrology Progress Note ---
Assessment/Plan Problem List: (1) Acute renal failure (ARF) Assessment: Cr stable (2) Chronic respiratory failure (3) Anemia (4) Sepsis Assessment Acute renal failure Respiratory failure - Trach Low Mag- Low k , Low Na Anemia UTI / Sepsis Proteinuria / HypoAlbuminemia high Trigs Sz decubs bed bound DNR Plan no new labs Hold KCL now has JT bolus Albumin as needed K and Mag and Phos supplement as needed Hydrate as needed Urine studies avoid Nephrotoxics mag K Phos supplements as needed monitor renal parameters Subjective ROS Limited/Unobtainable: Yes Objective Objective Last 24 Hour Vital Signs Date Time Temp Pulse Resp B/P (MAP) Pulse Ox O2 Delivery O2 Flow Rate FiO2 03/28/19 11:08 89 17 100 T-Piece 5.0 28 85 23 100 03/28/19 11:00 83 23 131/50 (77) 100 83 03/28/19 10:00 81 20 114/68 (83) 100 81 03/28/19 09:00 82 22 162/89 (113) 100 82 03/28/19 08:00 70 03/28/19 08:00 69 18 112/83 (93) 100 69 03/28/19 08:00 28 03/28/19 08:00 T-piece 6.0 T-piece 6.0 03/28/19 07:45 75 23 100 T-Piece 5.0 28 77 21 100 03/28/19 07:45 100 T-Piece 5.0 03/28/19 07:00 75 20 120/43 (68) 100 75 03/28/19 06:00 98.4 71 20 98/46 (63) 99 71 03/28/19 05:00 85 21 120/55 (76) 100 85 03/28/19 04:00 28 03/28/19 04:00 78 03/28/19 04:00 T-piece 6.0 T-piece 6.0 03/28/19 04:00 78 21 104/49 (67) 97 03/28/19 03:35 78 25 100 T-Piece 5.0 28 71 20 100 03/28/19 03:00 77 21 127/54 (78) 100 03/28/19 02:00 100 21 110/50 (70) 99 03/28/19 01:45 100 T-Piece 5.0 03/28/19 01:00 74 19 125/73 (90) 98 03/28/19 00:00 75 03/28/19 00:00 98.0 78 20 116/58 (77) 100 03/28/19 00:00 T-piece 6.0 T-piece 6.0 03/28/19 00:00 28 03/27/19 23:20 79 24 100 T-Piece 5.0 28 80 23 100 03/27/19 23:00 81 23 98/50 (66) 100 03/27/19 22:00 79 24 119/51 (73) 100 03/27/19 21:00 82 24 116/40 (65) 99 82 03/27/19 20:00 T-piece 6.0 T-piece 6.0 03/27/19 20:00 82 03/27/19 20:00 97.8 91 24 142/53 (82) 100 91 03/27/19 20:00 28 03/27/19 19:33 100 T-Piece 5.0 28 03/27/19 19:33 95 25 100 T-Piece 5.0 28 96 23 100 03/27/19 19:00 93 23 134/61 (85) 99 93 03/27/19 18:00 89 22 119/60 (79) 100 03/27/19 17:00 88 24 134/51 (78) 99 03/27/19 16:00 96 03/27/19 16:00 28 03/27/19 16:00 T-piece 6.0 T-piece 6.0 03/27/19 16:00 98.5 96 24 96/50 (65) 98 96 03/27/19 15:00 101 29 136/60 (85) 100 101 03/27/19 14:00 95 25 99/47 (64) 98 95 03/27/19 13:00 93 26 131/52 (78) 100 93 03/27/19 12:52 99 T-Piece 5.0 03/27/19 12:00 81 03/27/19 12:00 T-piece 6.0 T-piece 6.0 03/27/19 12:00 28 03/27/19 12:00 98.8 102 22 164/70 (101) 99 102 Intake and Output 03/27/19 03/28/19 19:00 07:00 Intake Total 840 ml 840 ml Output Total 425 ml 430 ml Balance 415 ml 410 ml Free Water 240 ml 240 ml Tube Feeding 600 ml 600 ml Output Urine Total 375 ml 430 ml Gastric Drainage Total 50 ml Height (Feet): 5 Height (Inches): 4.00 Weight (Pounds): 117 General Appearance: no apparent distress EENT: other - trach to O2 Cardiovascular: normal rate Respiratory/Chest: decreased breath sounds Abdomen: distended Objective no change Eric Cortez MD Mar 28, 2019 11:47
--- NOTE | 2019-03-28 12:00 | NUR ---
NURSE NOTES: Pt. no s/sx of distress noted. No grimacing noted. Turned and repositioned. Cleaned. Kept clean and dry.
--- NOTE | 2019-03-28 13:00 | NUR ---
NURSE NOTES: Pt. remain stable. Purewick leaked. Change a new purewick. Change pt. kept clean and dry.
--- NOTE | 2019-03-28 14:00 | NUR ---
NURSE NOTES: Suction pt. and Reglan IVP given.
--- NOTE | 2019-03-28 15:00 | NUR ---
NURSE NOTES: Turned and repositioned. Kept clean and dry. Pt. remain stable.
--- NOTE | 2019-03-28 17:00 | NUR ---
NURSE NOTES: Gave report to Kenia DE RN. Pt. remain stable.
[2019-03-28] MEDS ORDERED: Tubing IV Secondary IV ONE (17:45)
--- NOTE | 2019-03-28 18:30 | NUR ---
NURSE NOTES: Bed bath given. Kept dry, clean, comfortable and HOB>30.
--- NOTE | 2019-03-28 19:15 | NUR ---
HAND-OFF: Report given to JEANNINE Sykes. Endorsed plan of care.
[2019-03-28] MEDS: Dyna-Hex 2% Top Sol 2oz TOPIC SCH (19:42)
--- NOTE | 2019-03-28 19:59 | NUR ---
NURSE NOTES: PATIENT OPEN EYES, UNABLE TO EYE CONTACT, DID NOT FOLLOW COMMANDS, RESPIRATION REGULAR, ON TRACH, FIO2 28% COOL AEROSOL T- PIECE, O2 SATURATION 100% NOTED, HEART RATE 70'S/MIN SINUS RHYTHM, ABDOMEN SOFT, NO BM STATUS, G-J TUBE INTACT AND PATENT, G TUBE DRAINING GRAVITY, ONGOING J TUBE FEEDING, GLUCERNA 1.5 AT 50ML/HR, TOLERATED FEEDING, NO N/V NOTED, KEPT HOB 30 DEGREES AND ASPIRATION PRECAUTION, VOID WITH PURE WICK, YELLOW URINE OUTED, PICC LINE TO RIGHT UPPER ARM, INTACT AND PATENT, KEPT SZ AND FALL PRECAUTION, ON P200 BED, MADE LOWER BED POSITION, ON BED ALARM AND LOCKED, PROVIDED CALL LIGHT WITHIN REACH BUT UNABLE TO USE STATUS, WILL CONTINUE TO MONITOR.
--- NOTE | 2019-03-28 21:46 | Surgery Progress Note ---
Surgery Progress Note Subjective Additional Comments no acute events labs noted exam stable minimal residual Objective Last 24 Hour Vital Signs Date Time Temp Pulse Resp B/P (MAP) Pulse Ox O2 Delivery O2 Flow Rate FiO2 03/28/19 21:00 83 23 130/71 (90) 100 03/28/19 20:00 98.5 79 22 130/61 (84) 100 03/28/19 20:00 28 03/28/19 20:00 T-piece 5.0 T-piece 5.0 03/28/19 19:36 99 T-Piece 5.0 03/28/19 19:34 82 19 100 T-Piece 5.0 93 20 99 03/28/19 19:33 93 03/28/19 19:00 86 21 136/81 (99) 100 86 03/28/19 18:00 97.6 73 22 110/55 (73) 100 03/28/19 17:00 71 21 87/48 (61) 100 03/28/19 16:00 T-piece 6.0 T-piece 6.0 03/28/19 16:00 71 03/28/19 16:00 76 20 95/46 (62) 99 03/28/19 16:00 28 03/28/19 15:00 75 23 122/56 (78) 100 03/28/19 14:56 74 16 100 T-Piece 5.0 76 15 100 03/28/19 14:00 74 21 105/49 (67) 100 03/28/19 13:39 100 T-Piece 5.0 03/28/19 13:00 78 20 125/46 (72) 100 03/28/19 12:00 98.3 81 19 119/54 (75) 100 03/28/19 12:00 74 03/28/19 12:00 T-piece 6.0 T-piece 6.0 03/28/19 12:00 28 03/28/19 11:08 89 17 100 T-Piece 5.0 28 85 23 100 03/28/19 11:00 83 23 131/50 (77) 100 83 03/28/19 10:00 81 20 114/68 (83) 100 81 03/28/19 09:00 82 22 162/89 (113) 100 82 03/28/19 08:00 70 03/28/19 08:00 69 18 112/83 (93) 100 69 03/28/19 08:00 28 03/28/19 08:00 T-piece 6.0 T-piece 6.0 03/28/19 07:45 75 23 100 T-Piece 5.0 28 77 21 100 03/28/19 07:45 100 T-Piece 5.0 28 03/28/19 07:00 75 20 120/43 (68) 100 75 03/28/19 06:00 98.4 71 20 98/46 (63) 99 71 03/28/19 05:00 85 21 120/55 (76) 100 85 03/28/19 04:00 28 03/28/19 04:00 78 03/28/19 04:00 T-piece 6.0 T-piece 6.0 03/28/19 04:00 78 21 104/49 (67) 97 03/28/19 03:35 78 25 100 T-Piece 5.0 28 71 20 100 03/28/19 03:00 77 21 127/54 (78) 100 03/28/19 02:00 100 21 110/50 (70) 99 03/28/19 01:45 100 T-Piece 5.0 03/28/19 01:00 74 19 125/73 (90) 98 03/28/19 00:00 75 03/28/19 00:00 98.0 78 20 116/58 (77) 100 03/28/19 00:00 T-piece 6.0 T-piece 6.0 03/28/19 00:00 28 03/27/19 23:20 79 24 100 T-Piece 5.0 28 80 23 100 03/27/19 23:00 81 23 98/50 (66) 100 03/27/19 22:00 79 24 119/51 (73) 100 I&O Intake and Output 03/27/19 03/28/19 19:00 07:00 Intake Total 840 ml 840 ml Output Total 425 ml 430 ml Balance 415 ml 410 ml Free Water 240 ml 240 ml Tube Feeding 600 ml 600 ml Output Urine Total 375 ml 430 ml Gastric Drainage Total 50 ml Dressing: dry Wound: clean Cardiovascular: RSR Respiratory: clear, decreased breath sounds Abdomen: soft, present bowel sounds, non-distended Extremities: no cyanosis, other Plan Problems: (1) Sacral decubitus ulcer Assessment & Plan: This is a 83-year-old female with multiple medical committees that is currently admitted for medical care and management and identified to have multiple wounds requiring care. On admission patient noted to have a resolved sacral decubitus ulcer. Has had prior care and is well-healed at this time. Will ensure it does not open up again. Patient has a right ischial decubitus ulcer that is resolved. Scar intact and well formed. Will monitor to ensure it does not open up again. Patient has a left ischial decubitus ulcer that can be identified to be stage IV with palpable bone that has been resolving as noted by the periwound tissue and scar but open area approximately 1 cm x 1.5 cm few millimeters deep to bone identified. Unsure if this is been to be completely healed prior and has since opened or if has been healing at this level. No foul odor no drainage was unsure local wound care until healed Bilateral heels soft without signs of injury Resolving pressure injury L ischium(L)1.8cm x (W)1cm.Scattered biofilm at base of wound. Edges flat and adherent with surrounding hyperpigmentation. No odor or exudate noted. Sacrum is pale pink with surrounding hyperpigmentation. Hyperpigmentation R ischium with small sheared area centrally.No areas of erythema or exudate noted. Both heels are soft but blanchable. Skin Assessed under collar of trach and no evidence of skin breakdown noted. All wound Tx. are effective and continued as ordered. Pt ahs an APM/Belén mattress overlay and is being repositioned per protocols and per tolerance.No new skin concerns noted. Full thickness pressure injury L Ischium with small amt biofilm (L)1.8cm x (W) 1cm. Surrounding pink hyperpigmentation. No odor or exudate noted. [place] hyperpigmentation from previous wound noted to sacrum. Pt also noted to have Cat 2 Skin Tear dorsal L hand, L 5th metatarsal extending into palm of hand. 80% skin flap in situ.Both heels are dry firm and blanchable. No other skin concerns noted. R ischial wound has resolved. [place] epithelial with surrounding hyperpigmentation. from historical wound. Full thickness pressure injury L ischium. [place] granulation at base of wound. Borders are macerated with Surrounding hyperpigmentation.Small amt non-odorous serous exudate noted.(L)0.7cm x (W)0.8cm. Skin hyperpigmentation from historical wound noted to Sacrum. Small sheared area noted to sacrococcygeal area.(L)0.4cm x (W)0.3cm.Small amt sanguineous exudate noted. Reabsorbed blister with semi-detached dry necrotic cap noted to web space of L thumb and L index fingers extending into palm of L hand. No odor or exudate noted. Skin assessed under tracheal collar and no erythema or evidence of Skin Breakdown noted. NO new skin concerns noted . Good hand hygiene provided to both hands. R hand contracted and fisted. Fingernails trimmed. Wound care provided along with Primary nurse. Wound Tx continued as ordered. New order obtained from to apply Betadine to wound L hand Daily. Tx done as ordered. L hand wrapped with kerlix weaving kerlix between fingers to separate fingers. Moisture Barrier applied to sacrum ,R ischium. Each site covered with Optifoam drsg. Both lower ext washed and moisturized. [place] Skin Barrier applied to both heels.Each heel covered with Optifoam drsgs. Pt positioned with pillows and both heels off-loaded with pillow. Tx.Plan: Apply Betadine to wound L hand. Cover with Gauze and wrap with Kerlix Daily and prn. Cleanse L ischial wound with Saline. Apply Therahoney. Apply Moisture Barrier periwound. Cover with Optifoam drsgevery 3 days and prn. Apply Moisture Barrier Paste to R ischium and Sacrum. Cover each area with Optifoam drsg. Change every 3 days and prn. Apply Cavilon Skin Barrier to both heels. Cover each heel with Optifoam drsg. Change every 7 days and prn. APM/BELÉN Mattress overlay. Reposition at least every 2hours or as tolerated. Off-load heels with pillow. Cleanse Blister Dorsal and palm of L hand with saline. Versatel One Silicone Contact Layer(Applied). Apply Silvasorb Gel. Wrap with Kerlix Gauze.Change every 7 days and prn. Apply Moisture Barrier to sacrum. Cover with Optifoam drsg. Change every 3 days and prn. Cleanse L ischial wound with saline. Apply Therahoney. Apply Moisture Barrier Paste periwound. Cover with Optifoam drsg. Change every 3 days and prn. Apply Cavilon Skin Barrier to both heels. Cover each heel with Optifoam drsg. Change every 7 days and prn. APM/BELÉN Mattress overlay. Reposition at least every 2hours or as tolerated. Off-load heels with pillow. Nutritional optimization We will monitor follow with recommendations cont with above upon d/c (2) Sepsis Assessment & Plan: IV abx as per ID trend labs improving wounds unlikely etiology likely respiratory imaging noted and okay abnormal lft's stable PICC on Abx in ICU for desaturation CXR with consolidation cont with frequent suctioning d/c planning possible placement found Evidence of left lower lobe pneumonia, also previously demonstrated Gastrostomy in good position Mild diastasis of the rectus abdominis musculature again demonstrated Retrosacral decubitus changes, better depicted on prior exam which included the pelvis Small hiatal hernia with evidence of trace gastroesophageal reflux Discussed with GI. Recommend GJ family still pending decision (3) Feeding by G-tube Assessment & Plan: DAILY ESTIMATED NEEDS: Needs based on Pulmonary, wounds, bedbound/ 61kg adj 25-30 kcals/kg 1106-8869 total kcals 1.25-2 g protein/kg 76-122 g total protein 25-30 mL/kg 6902-9294 total fluid mLs NUTRITION DIAGNOSIS: * Increased kcal/prot needs R/T wound healing as evidenced by BL buttocks and sacral wound photos, refer to eval. * Swallowing difficulty R/T respiratory status as evidenced by pt on T-collar, now back the vent, PEG dep. CURRENT TF:Glucerna 1.5 @ 25ml/hr x 24 hrs - currently HELD d/t emesis ENTERAL NUTRITION RECOMMENDATIONS: Glucerna 1.5 @ 45ml/hr x 24 hrs to provide 1080ml, 1620kcal, 89g prot, 820ml free water - As medically able, rec to increase goal rate to 45ml/hr x24 hrs to meet 100% est kcal/prot needs - HOB over 30 degrees - Water flush of 170ml q 6 hrs * W/ continued regurgitation/ emesis, rec Osmolite 1.5 for GI tolerance. Rec goal of 45ml/hr to provide: 1080ml, 1620 kcal, 68g pro, 823ml free H20. * Add Prosource 1 pack daily to provide additional 11g pro. ADDITIONAL RECOMMENDATIONS: 1) Weekly weights 2) Wound healing: Add Cristian 1pkt BID w/ good TF tolerance + MVI x1 daily 3) Monitor lytes, replete as needed 4) Monitor BGs closely, need for NISS (wnl) 5) Monitor TF tolerance: rec Tf change as above if not (4) Chronic vegetative state Assessment & Plan: incontinence of urine and stool. can soil dressings. nurses doing great job with monitoring and changing prn (5) Leukocytosis Additional Comments time of note does not reflect when patient was seen and examined. patient seen at this morning Walter Madera Mar 28, 2019 21:46
--- NOTE | 2019-03-28 21:51 | Pulmonology Progress Note ---
Assessment/Plan Assessment/Plan Pulmonary Progress Note HPI This an 83-year-old female with history of tracheostomy, VDRF, feeding tube, admitted with Pneumonia, respiratory distress. Tolerating TC Past Medical History: VDRF, Trach, G tube, Hypertension, Cardiac disease, Dementia, Previous CVA, TIA, Seizure disorder, previous cancer Impression: Sepsis syndrome Pneumonia VDRF, Trach, G tube, Hypertension, Cardiac disease, Dementia, Previous CVA, Seizure disorder, Respiratory failure with hypoxia Anemia Sacral ulcer renal cyst Plan continue current AB TC as tolerated mucomyst and duoneb SNF meds as is Adjust oxygen as needed Monitor labs for change changes noted Patient is a DNR. No CPR. dc planning per family and primary impression, plan, and exam edited and reviewed in detail care discussed with RN Subjective Allergies: Coded Allergies: CODEINE (Verified Allergy, Unknown, HIVES, 09/15/09) Subjective on AC on mucomyst and duoneb noted congestion supportive care noted RT care reviewed overnight care reviewed Objective Vital Signs Noted Objective WDWN NAD contracted on vent reduced breath sounds bilaterally with scattered rhonchi same [id number] without MRG NABS nontender no HSM no CC minimal nonfocal nonverbal trach and gt reviewed and edited Laboratory Tests Noted Subjective ROS Limited/Unobtainable: No Allergies: Coded Allergies: CODEINE (Verified Allergy, Unknown, HIVES, 09/15/09) Objective Last 24 Hour Vital Signs Date Time Temp Pulse Resp B/P (MAP) Pulse Ox O2 Delivery O2 Flow Rate FiO2 03/28/19 21:00 83 23 130/71 (90) 100 03/28/19 20:00 98.5 79 22 130/61 (84) 100 03/28/19 20:00 28 03/28/19 20:00 T-piece 5.0 T-piece 5.0 03/28/19 19:36 99 T-Piece 5.0 03/28/19 19:34 82 19 100 T-Piece 5.0 93 20 99 03/28/19 19:33 93 03/28/19 19:00 86 21 136/81 (99) 100 86 03/28/19 18:00 97.6 73 22 110/55 (73) 100 03/28/19 17:00 71 21 87/48 (61) 100 03/28/19 16:00 T-piece 6.0 T-piece 6.0 03/28/19 16:00 71 03/28/19 16:00 76 20 95/46 (62) 99 03/28/19 16:00 28 03/28/19 15:00 75 23 122/56 (78) 100 03/28/19 14:56 74 16 100 T-Piece 5.0 28 76 15 100 03/28/19 14:00 74 21 105/49 (67) 100 03/28/19 13:39 100 T-Piece 5.0 03/28/19 13:00 78 20 125/46 (72) 100 03/28/19 12:00 98.3 81 19 119/54 (75) 100 03/28/19 12:00 74 03/28/19 12:00 T-piece 6.0 T-piece 6.0 03/28/19 12:00 28 03/28/19 11:08 89 17 100 T-Piece 5.0 85 23 100 03/28/19 11:00 83 23 131/50 (77) 100 83 03/28/19 10:00 81 20 114/68 (83) 100 81 03/28/19 09:00 82 22 162/89 (113) 100 82 03/28/19 08:00 70 03/28/19 08:00 69 18 112/83 (93) 100 69 03/28/19 08:00 28 03/28/19 08:00 T-piece 6.0 T-piece 6.0 03/28/19 07:45 75 23 100 T-Piece 5.0 77 21 100 03/28/19 07:45 100 T-Piece 5.0 03/28/19 07:00 75 20 120/43 (68) 100 75 03/28/19 06:00 98.4 71 20 98/46 (63) 99 71 03/28/19 05:00 85 21 120/55 (76) 100 85 03/28/19 04:00 28 03/28/19 04:00 78 03/28/19 04:00 T-piece 6.0 T-piece 6.0 03/28/19 04:00 78 21 104/49 (67) 97 03/28/19 03:35 78 25 100 T-Piece 5.0 71 20 100 03/28/19 03:00 77 21 127/54 (78) 100 03/28/19 02:00 100 21 110/50 (70) 99 03/28/19 01:45 100 T-Piece 5.0 28 03/28/19 01:00 74 19 125/73 (90) 98 03/28/19 00:00 75 03/28/19 00:00 98.0 78 20 116/58 (77) 100 03/28/19 00:00 T-piece 6.0 T-piece 6.0 03/28/19 00:00 28 03/27/19 23:20 79 24 100 T-Piece 5.0 28 80 23 100 03/27/19 23:00 81 23 98/50 (66) 100 03/27/19 22:00 79 24 119/51 (73) 100 Intake and Output 03/27/19 03/28/19 19:00 07:00 Intake Total 840 ml 840 ml Output Total 425 ml 430 ml Balance 415 ml 410 ml Free Water 240 ml 240 ml Tube Feeding 600 ml 600 ml Output Urine Total 375 ml 430 ml Gastric Drainage Total 50 ml Current Medications Medications (Trade) Dose Ordered Sig/Maicol Route PRN Reason Start Time Stop Time Status Last Admin Dose Admin Acetaminophen (Tylenol) 650 mg Q6H PRN GT Mild Pain/Temp > 100.5 03/23/19 15:15 04/22/19 15:14 03/23/19 19:09 Albuterol/ Ipratropium (Albuterol/ Ipratropium) 3 ml Q4HRT HHN 03/25/19 11:00 03/30/19 10:59 03/28/19 14:56 Atropine Sulfate (Atropine Opth Adriana) 2 drop TID SL 03/07/19 09:00 04/06/19 08:59 03/28/19 18:04 Bacitracin (Bacitracin 15gm tube) 1 applic THREE TIMES A DAY TOPIC 02/28/19 18:30 03/30/19 18:29 03/28/19 18:04 Chlorhexidine Gluconate (Cesilia-Hex 2%) 1 applic DAILY@1999 TOPIC 03/12/19 20:00 04/11/19 19:59 03/28/19 19:42 Heparin Sodium (Porcine) (Heparin 5000 units/ml) 5,000 units EVERY 12 HOURS SUBQ 03/22/19 21:00 03/31/19 23:14 03/28/19 20:35 Hydralazine HCl (Apresoline) 10 mg Q4H PRN IV For High Blood Pressure 03/12/19 09:00 04/11/19 08:59 03/18/19 18:17 Lansoprazole (Prevacid) 30 mg Q12HR JT 03/25/19 21:00 04/24/19 20:59 03/28/19 20:35 Levetiracetam (Keppra) 750 mg Q12HR GT 03/22/19 21:00 03/31/19 23:29 03/28/19 20:36 Lorazepam (Ativan 2mg/ml 1ml) 0.5 mg Q2H PRN IV For Seizures 03/23/19 15:15 03/30/19 15:14 Metoclopramide HCl (Reglan) 5 mg Q6H IVP 03/24/19 20:00 04/23/19 19:59 03/28/19 19:42 Ondansetron HCl (Zofran) 4 mg Q4H PRN IVP Nausea & Vomiting 03/18/19 18:15 04/17/19 18:14 03/21/19 08:27 Bg Moffett MD Mar 28, 2019 21:51
--- NOTE | 2019-03-28 21:55 | NUR ---
NURSE NOTES: PATIENT ASLEEP STATUS, NO PAIN OR SOB NOTED AT THIS TIME.
[2019-03-29] VITALS (24 sets, daily range): BP systolic 96–148; BP diastolic 45–67
--- NOTE | 2019-03-29 00:27 | NUR ---
NURSE NOTES: ORAL CARE WAS DONE, NO DISTRESS NOTED, WILL CONTINUE PLAN OF CARE.
[2019-03-29] MEDS: Metoclopramide 10mg/2ml Inj IVP SCH ×4 (02:05→19:39)
--- NOTE | 2019-03-29 02:13 | NUR ---
NURSE NOTES: J TUBE FEEDING TOLERATED, NO N/V NOTE, KEPT HOB 30 DEGREES, WILL CONTINUE TO MONITOR.
--- NOTE | 2019-03-29 04:23 | NUR ---
NURSE NOTES: MORNING CARE AND ORAL CARE WAS DONE, NO BM STATUS.
[2019-03-29 06:00] LABS: BASOPHILS % (AUTO) 0.9 % (0.0-2.0); HEMATOCRIT 28.7 % (37.0-47.0); HEMOGLOBIN 9.1 G/DL (12.0-16.0); LYMPHOCYTES % (AUTO) 33.8 % (20.0-45.0); MEAN CORPUSCULAR VOLUME 89 FL (80-99); NEUTROPHILS % (AUTO) 55.4 % (45.0-75.0); PLATELET COUNT 248 K/UL (150-450); RED BLOOD COUNT 3.24 M/UL (4.20-5.40); RED CELL DISTRIBUTION WIDTH 16.9 % (11.6-14.8); WHITE BLOOD COUNT 10.6 K/UL (4.8-10.8)
--- NOTE | 2019-03-29 06:20 | NUR ---
NURSE NOTES: LE; NO ACUTE DISTRESS NOTED AT THIS SHIFT.
[2019-03-29 06:28] LABS: ALANINE AMINOTRANSFERASE 35 U/L (12-78); ALBUMIN 3.1 G/DL (3.4-5.0); ALBUMIN/GLOBULIN RATIO 0.5 (1.0-2.7); ALKALINE PHOSPHATASE 150 U/L (46-116); ANION GAP 6 mmol/L (5-15); ASPARTATE AMINO TRANSFERASE 22 U/L (15-37); BILIRUBIN,TOTAL 0.2 MG/DL (0.2-1.0); BLOOD UREA NITROGEN 50 mg/dL (7-18); CALCIUM 9.3 MG/DL (8.5-10.1); CARBON DIOXIDE 31 MMOL/L (21-32); CHLORIDE 103 MMOL/L (98-107); CREATININE 1.2 MG/DL (0.55-1.30); PHOSPHORUS 4.6 MG/DL (2.5-4.9); POTASSIUM 4.4 MMOL/L (3.5-5.1); SODIUM 140 MMOL/L (136-145)
[2019-03-29] MEDS: Albuterol/Ipratropium 3ml neb HHN SCH ×5 (06:43→23:07)
--- NOTE | 2019-03-29 07:08 | NUR ---
HAND-OFF: Report given to JEANNINE CAR.
--- NOTE | 2019-03-29 07:10 | NUR ---
NURSE NOTES: PT and report received from Onel RN; PT received with open eyes, no tracking of eyes, does not follow commands; VS on progressive care unit registered nurse shows BP 132/67, HR 76, RR 18, saturation 100% with shiley 6.0 XLT t-piece cool aerosol w/ fio2 @ 28%, no S/S of respiratory distress noted during morning rounds, no oral secretions or gurgling noted; abdomen is soft with G-J tube intact and patent, G-tube is draining to gravity, J-tube infusing Glucerna 1.5 @ 50cc, no residual noted; HOB is locked at 30 degree; purewick connected to wall suction intact, patent; PT has JOSY-PICC running TKO; bed is locked in lowest position, bed alarm is on, side rails x 3 raised and padded for seizure precaution, PT is on p200 mattress. Will continue to monitor PT.
--- NOTE | 2019-03-29 08:37 | General Progress Note ---
Assessment/Plan Problem List: (1) Seizure ICD Codes: R56.9 - Unspecified convulsions SNOMED: 99843986 (2) Anemia ICD Codes: D64.9 - Anemia, unspecified SNOMED: 813245522 Qualifiers: Qualified Codes: D64.9 - Anemia, unspecified (3) Sepsis ICD Codes: A41.9 - Sepsis, unspecified organism SNOMED: 70304872, 936638983 Qualifiers: Qualified Codes: A41.9 - Sepsis, unspecified organism (4) Respiratory failure with hypoxia ICD Codes: J96.91 - Respiratory failure, unspecified with hypoxia SNOMED: 29832964101720120 Qualifiers: Qualified Codes: J96.21 - Acute and chronic respiratory failure with hypoxia (5) HCAP (healthcare-associated pneumonia) ICD Codes: J18.9 - Pneumonia, unspecified organism SNOMED: 945038477, 556092174 (6) Sacral decubitus ulcer ICD Codes: L89.159 - Pressure ulcer of sacral region, unspecified stage SNOMED: 221143662 (7) HTN (hypertension) ICD Codes: I10 - Essential (primary) hypertension SNOMED: 33089391 (8) Chronic vegetative state ICD Codes: R40.3 - Persistent vegetative state SNOMED: 69836867 (9) Chronic respiratory failure ICD Codes: J96.10 - Chronic respiratory failure, unspecified whether with hypoxia or hypercapnia SNOMED: 52453002 (10) Limited mobility ICD Codes: Z74.09 - Other reduced mobility SNOMED: 3033720 Status: stable, progressing Assessment/Plan: vent as needed resp rx suctioning j tube feeds g port to [facility]vity skin care sz rx monitor h/h dc planning Subjective ROS Limited/Unobtainable: Yes Constitutional: Reports: malaise, weakness HEENT: Reports: no symptoms Cardiovascular: Reports: no symptoms Respiratory: Reports: cough, shortness of breath, sputum Gastrointestinal/Abdominal: Reports: difficulty swallowing Genitourinary: Reports: no symptoms Neurologic/Psychiatric: Reports: no symptoms Endocrine: Reports: no symptoms Hematologic/Lymphatic: Reports: anemia Allergies: Coded Allergies: CODEINE (Verified Allergy, Unknown, HIVES, 09/15/09) All Systems: reviewed and negative except above Subjective no events. stable on the vent, tolerating feeds, no fevers. no szs. Objective Last 24 Hour Vital Signs Date Time Temp Pulse Resp B/P (MAP) Pulse Ox O2 Delivery O2 Flow Rate FiO2 03/29/19 07:00 93 16 132/67 (88) 100 03/29/19 06:53 99 21 100 T-Piece 5.0 84 19 100 03/29/19 06:43 100 T-Piece 5.0 03/29/19 06:00 73 22 124/53 (76) 100 03/29/19 05:00 78 21 125/58 (80) 100 03/29/19 04:00 98.4 78 21 135/58 (83) 100 03/29/19 04:00 T-piece 5.0 T-piece 5.0 03/29/19 04:00 28 03/29/19 03:00 78 19 118/52 (74) 100 03/29/19 02:59 77 03/29/19 02:20 100 T-Piece 5.0 03/29/19 02:20 73 19 100 T-Piece 5.0 73 20 100 03/29/19 02:00 77 18 107/57 (74) 100 03/29/19 01:00 77 22 118/53 (74) 99 03/29/19 00:00 98.2 78 22 104/52 (69) 99 03/29/19 00:00 28 03/29/19 00:00 T-piece 5.0 T-piece 5.0 03/28/19 23:24 83 17 100 T-Piece 5.0 81 20 98 03/28/19 23:17 84 03/28/19 23:00 88 23 140/55 (83) 100 03/28/19 22:00 82 23 112/57 (75) 100 03/28/19 21:00 83 23 130/71 (90) 100 03/28/19 20:00 98.5 79 22 130/61 (84) 100 03/28/19 20:00 28 03/28/19 20:00 T-piece 5.0 T-piece 5.0 03/28/19 19:36 99 T-Piece 5.0 03/28/19 19:34 82 19 100 T-Piece 5.0 93 20 99 03/28/19 19:33 93 03/28/19 19:00 86 21 136/81 (99) 100 86 03/28/19 18:00 97.6 73 22 110/55 (73) 100 03/28/19 17:00 71 21 87/48 (61) 100 03/28/19 16:00 T-piece 6.0 T-piece 6.0 03/28/19 16:00 71 03/28/19 16:00 76 20 95/46 (62) 99 03/28/19 16:00 28 03/28/19 15:00 75 23 122/56 (78) 100 03/28/19 14:56 74 16 100 T-Piece 5.0 28 76 15 100 03/28/19 14:00 74 21 105/49 (67) 100 03/28/19 13:39 100 T-Piece 5.0 28 03/28/19 13:00 78 20 125/46 (72) 100 03/28/19 12:00 98.3 81 19 119/54 (75) 100 03/28/19 12:00 74 03/28/19 12:00 T-piece 6.0 T-piece 6.0 03/28/19 12:00 28 03/28/19 11:08 89 17 100 T-Piece 5.0 85 23 100 03/28/19 11:00 83 23 131/50 (77) 100 83 03/28/19 10:00 81 20 114/68 (83) 100 81 03/28/19 09:00 82 22 162/89 (113) 100 82 Intake and Output 03/28/19 03/29/19 19:00 07:00 Intake Total 800 ml 840 ml Output Total 200 ml 490 ml Balance 600 ml 350 ml Free Water 150 ml 120 ml Tube Feeding 650 ml 600 ml Other 120 ml Output Urine Total 90 ml 460 ml Gastric Drainage Total 110 ml 30 ml Laboratory Tests 03/29/19 05:10: White Blood Count 10.6, Red Blood Count 3.24L, Hemoglobin 9.1L, Hematocrit 28.7L , Mean Corpuscular Volume 89, Mean Corpuscular Hemoglobin 28.0, Mean Corpuscular Hemoglobin Concent 31.6L, Red Cell Distribution Width 16.9H, Platelet Count 248, Mean Platelet Volume 6.5, Neutrophils (%) (Auto) 55.4, Lymphocytes (%) (Auto) 33.8, Monocytes (%) (Auto) 5.0, Eosinophils (%) (Auto) 5.0H, Basophils (%) (Auto) 0.9, Sodium Level 140, Potassium Level 4.4, Chloride Level 103, Carbon Dioxide Level 31, Anion Gap 6, Blood Urea Nitrogen 50H, Creatinine 1.2, Estimat Glomerular Filtration Rate , Glucose Level 119H, Calcium Level 9.3, Phosphorus Level 4.6, Magnesium Level 2.6H, Total Bilirubin 0.2, Aspartate Amino Transf (AST/SGOT) 22, Alanine Aminotransferase (ALT/SGPT) 35, Alkaline Phosphatase 150H, Total Protein 8.8H, Albumin 3.1L, Globulin 5.7, Albumin/Globulin Ratio 0.5L Height (Feet): 5 Height (Inches): 4.00 Weight (Pounds): 112 Objective General Appearance: WD/WN, confused. on trach collar Neck: supple Cardiovascular: normal rate, regular rhythm Respiratory/Chest: chest wall non-tender, rhonchi - bilaterally(minimal) Abdomen: normal bowel sounds, non tender, soft, no organomegaly Edema: no edema noted Arm (L), no edema noted Arm (R), no edema noted Leg (L), no edema noted Leg (R), no edema noted Pedal (L), no edema noted Pedal (R), no edema noted Generalized Neurologic: disoriented, unresponsive, aphasia Irvin Beltrán MD Mar 29, 2019 08:37
--- NOTE | 2019-03-29 08:54 | General Progress Note ---
Assessment/Plan Status: stable, progressing Assessment/Plan: Assessment - N/V, periodic, including suctioning of feeds from mouth - suspect due to gastroparesis, possibly also from suctioning reflex - DTR declines GJ conversion. - - will Rx with reglan, short term - suction gently - Elevated Alk phos / LFT - CT negative - abd U/S negative - check hepatitis serologies - negative - Anemia with OB (-) stools - Resp failure, s/p Trach - dysphagia, s/p PEG --> s/p GT change - OBS - minor GT tract inflammation / infection - poor Px Recommendations - laxative PRN - antibiotic ointment to GT site PRN - aspiration precautions - elevate HOB - PPI -GTF Subjective ROS Limited/Unobtainable: No Allergies: Coded Allergies: CODEINE (Verified Allergy, Unknown, HIVES, 09/15/09) Objective Last 24 Hour Vital Signs Date Time Temp Pulse Resp B/P (MAP) Pulse Ox O2 Delivery O2 Flow Rate FiO2 03/29/19 07:00 93 16 132/67 (88) 100 03/29/19 06:53 99 21 100 T-Piece 5.0 84 19 100 03/29/19 06:43 100 T-Piece 5.0 03/29/19 06:00 73 22 124/53 (76) 100 03/29/19 05:00 78 21 125/58 (80) 100 03/29/19 04:00 98.4 78 21 135/58 (83) 100 03/29/19 04:00 T-piece 5.0 T-piece 5.0 03/29/19 04:00 28 03/29/19 03:00 78 19 118/52 (74) 100 03/29/19 02:59 77 03/29/19 02:20 100 T-Piece 5.0 03/29/19 02:20 73 19 100 T-Piece 5.0 28 73 20 100 03/29/19 02:00 77 18 107/57 (74) 100 03/29/19 01:00 77 22 118/53 (74) 99 03/29/19 00:00 98.2 78 22 104/52 (69) 99 03/29/19 00:00 28 03/29/19 00:00 T-piece 5.0 T-piece 5.0 03/28/19 23:24 83 17 100 T-Piece 5.0 28 81 20 98 03/28/19 23:17 84 03/28/19 23:00 88 23 140/55 (83) 100 03/28/19 22:00 82 23 112/57 (75) 100 03/28/19 21:00 83 23 130/71 (90) 100 03/28/19 20:00 98.5 79 22 130/61 (84) 100 03/28/19 20:00 28 03/28/19 20:00 T-piece 5.0 T-piece 5.0 03/28/19 19:36 99 T-Piece 5.0 03/28/19 19:34 82 19 100 T-Piece 5.0 93 20 99 03/28/19 19:33 93 03/28/19 19:00 86 21 136/81 (99) 100 86 03/28/19 18:00 97.6 73 22 110/55 (73) 100 03/28/19 17:00 71 21 87/48 (61) 100 03/28/19 16:00 T-piece 6.0 T-piece 6.0 03/28/19 16:00 71 03/28/19 16:00 76 20 95/46 (62) 99 03/28/19 16:00 28 03/28/19 15:00 75 23 122/56 (78) 100 03/28/19 14:56 74 16 100 T-Piece 5.0 28 76 15 100 03/28/19 14:00 74 21 105/49 (67) 100 03/28/19 13:39 100 T-Piece 5.0 03/28/19 13:00 78 20 125/46 (72) 100 03/28/19 12:00 98.3 81 19 119/54 (75) 100 03/28/19 12:00 74 03/28/19 12:00 T-piece 6.0 T-piece 6.0 03/28/19 12:00 28 03/28/19 11:08 89 17 100 T-Piece 5.0 28 85 23 100 03/28/19 11:00 83 23 131/50 (77) 100 83 03/28/19 10:00 81 20 114/68 (83) 100 81 03/28/19 09:00 82 22 162/89 (113) 100 82 Intake and Output 03/28/19 03/29/19 19:00 07:00 Intake Total 800 ml 840 ml Output Total 200 ml 490 ml Balance 600 ml 350 ml Free Water 150 ml 120 ml Tube Feeding 650 ml 600 ml Other 120 ml Output Urine Total 90 ml 460 ml Gastric Drainage Total 110 ml 30 ml Laboratory Tests 03/29/19 05:10: White Blood Count 10.6, Red Blood Count 3.24L, Hemoglobin 9.1L, Hematocrit 28.7L , Mean Corpuscular Volume 89, Mean Corpuscular Hemoglobin 28.0, Mean Corpuscular Hemoglobin Concent 31.6L, Red Cell Distribution Width 16.9H, Platelet Count 248, Mean Platelet Volume 6.5, Neutrophils (%) (Auto) 55.4, Lymphocytes (%) (Auto) 33.8, Monocytes (%) (Auto) 5.0, Eosinophils (%) (Auto) 5.0H, Basophils (%) (Auto) 0.9, Sodium Level 140, Potassium Level 4.4, Chloride Level 103, Carbon Dioxide Level 31, Anion Gap 6, Blood Urea Nitrogen 50H, Creatinine 1.2, Estimat Glomerular Filtration Rate , Glucose Level 119H, Calcium Level 9.3, Phosphorus Level 4.6, Magnesium Level 2.6H, Total Bilirubin 0.2, Aspartate Amino Transf (AST/SGOT) 22, Alanine Aminotransferase (ALT/SGPT) 35, Alkaline Phosphatase 150H, Total Protein 8.8H, Albumin 3.1L, Globulin 5.7, Albumin/Globulin Ratio 0.5L Height (Feet): 5 Height (Inches): 4.00 Weight (Pounds): 112 General Appearance: no apparent distress EENT: normal ENT inspection Neck: supple Cardiovascular: normal rate Respiratory/Chest: decreased breath sounds Abdomen: normal bowel sounds, non tender, soft Extremities: non-tender Gary Guzman MD Mar 29, 2019 08:54
--- NOTE | 2019-03-29 08:59 | NUR ---
NURSE NOTES: MD Megan made rounds, asked for clarification on medication administration route, per MD Megan; "all medication administration to be given via GTube only, if given by JTube it will clog." Lansoprazole administration route changed.
[2019-03-29] MEDS: levETIRAcetam 500mg/5ml Liquid GT SCH ×2 (09:05→20:49)
[2019-03-29] MEDS: Bacitracin Oint 15gm Tube TOPIC SCH ×3 (09:06→17:37)
[2019-03-29] MEDS: Heparin 5000 units/ml inj SUBQ SCH ×2 (09:07→20:50)
--- NOTE | 2019-03-29 09:46 | Infectious Diseases Prog Note ---
Assessment/Plan Assessment/Plan A 1. Providencia & Klebsiella pneumonia treated 2. respiratory failure 3. hypertension 4. CVA 5. dementia 6. sacral decubitus ulcer 7. rectal VRE colonization 8. Anemia 9. Proteus UTI 10. Acute renal failure 11. Leukocytosis resolved P 1.Observe off antibiotic 2. Frequent suctioning 3. Remove PICC line before discharge Subjective ROS Limited/Unobtainable: Yes Constitutional: Denies: fever Allergies: Coded Allergies: CODEINE (Verified Allergy, Unknown, HIVES, 09/15/09) Objective Vital Signs Last 24 Hour Vital Signs Date Time Temp Pulse Resp B/P (MAP) Pulse Ox O2 Delivery O2 Flow Rate FiO2 03/29/19 07:00 93 16 132/67 (88) 100 03/29/19 06:53 99 21 100 T-Piece 5.0 28 84 19 100 03/29/19 06:43 100 T-Piece 5.0 28 03/29/19 06:00 73 22 124/53 (76) 100 03/29/19 05:00 78 21 125/58 (80) 100 03/29/19 04:00 98.4 78 21 135/58 (83) 100 03/29/19 04:00 T-piece 5.0 T-piece 5.0 03/29/19 04:00 28 03/29/19 03:00 78 19 118/52 (74) 100 03/29/19 02:59 77 03/29/19 02:20 100 T-Piece 5.0 03/29/19 02:20 73 19 100 T-Piece 5.0 28 73 20 100 03/29/19 02:00 77 18 107/57 (74) 100 03/29/19 01:00 77 22 118/53 (74) 99 03/29/19 00:00 98.2 78 22 104/52 (69) 99 03/29/19 00:00 28 03/29/19 00:00 T-piece 5.0 T-piece 5.0 03/28/19 23:24 83 17 100 T-Piece 5.0 28 81 20 98 03/28/19 23:17 84 03/28/19 23:00 88 23 140/55 (83) 100 03/28/19 22:00 82 23 112/57 (75) 100 03/28/19 21:00 83 23 130/71 (90) 100 03/28/19 20:00 98.5 79 22 130/61 (84) 100 03/28/19 20:00 28 03/28/19 20:00 T-piece 5.0 T-piece 5.0 03/28/19 19:36 99 T-Piece 5.0 03/28/19 19:34 82 19 100 T-Piece 5.0 93 20 99 03/28/19 19:33 93 03/28/19 19:00 86 21 136/81 (99) 100 86 03/28/19 18:00 97.6 73 22 110/55 (73) 100 03/28/19 17:00 71 21 87/48 (61) 100 03/28/19 16:00 T-piece 6.0 T-piece 6.0 03/28/19 16:00 71 03/28/19 16:00 76 20 95/46 (62) 99 03/28/19 16:00 28 03/28/19 15:00 75 23 122/56 (78) 100 03/28/19 14:56 74 16 100 T-Piece 5.0 76 15 100 03/28/19 14:00 74 21 105/49 (67) 100 03/28/19 13:39 100 T-Piece 5.0 03/28/19 13:00 78 20 125/46 (72) 100 03/28/19 12:00 98.3 81 19 119/54 (75) 100 03/28/19 12:00 74 03/28/19 12:00 T-piece 6.0 T-piece 6.0 03/28/19 12:00 28 03/28/19 11:08 89 17 100 T-Piece 5.0 85 23 100 03/28/19 11:00 83 23 131/50 (77) 100 83 03/28/19 10:00 81 20 114/68 (83) 100 81 Height (Feet): 5 Height (Inches): 4.00 Weight (Pounds): 112 HEENT: mucous membranes moist Respiratory/Chest: lungs clear, other - on T bar, respiratory secretions Cardiovascular: normal rate Abdomen: soft, non tender, other - GT feeding Extremities: no edema Neurologic/Psychiatric: unresponsiveness, aphasia Laboratory Tests Test 03/29/19 05:10 White Blood Count 10.6 K/UL (4.8-10.8) Red Blood Count 3.24 M/UL (4.20-5.40) L Hemoglobin 9.1 G/DL (12.0-16.0) L Hematocrit 28.7 % (37.0-47.0) L Mean Corpuscular Volume 89 FL (80-99) Mean Corpuscular Hemoglobin 28.0 PG (27.0-31.0) Mean Corpuscular Hemoglobin Concent 31.6 G/DL (32.0-36.0) L Red Cell Distribution Width 16.9 % (11.6-14.8) H Platelet Count 248 K/UL (150-450) Mean Platelet Volume 6.5 FL (6.5-10.1) Neutrophils (%) (Auto) 55.4 % (45.0-75.0) Lymphocytes (%) (Auto) 33.8 % (20.0-45.0) Monocytes (%) (Auto) 5.0 % (1.0-10.0) Eosinophils (%) (Auto) 5.0 % (0.0-3.0) H Basophils (%) (Auto) 0.9 % (0.0-2.0) Sodium Level 140 MMOL/L (136-145) Potassium Level 4.4 MMOL/L (3.5-5.1) Chloride Level 103 MMOL/L (98-107) Carbon Dioxide Level 31 MMOL/L (21-32) Anion Gap 6 mmol/L (5-15) Blood Urea Nitrogen 50 mg/dL (7-18) H Creatinine 1.2 MG/DL (0.55-1.30) Estimat Glomerular Filtration Rate mL/min (>60) Glucose Level 119 MG/DL (74-106) H Calcium Level 9.3 MG/DL (8.5-10.1) Phosphorus Level 4.6 MG/DL (2.5-4.9) Magnesium Level 2.6 MG/DL (1.8-2.4) H Total Bilirubin 0.2 MG/DL (0.2-1.0) Aspartate Amino Transf (AST/SGOT) 22 U/L (15-37) Alanine Aminotransferase (ALT/SGPT) 35 U/L (12-78) Alkaline Phosphatase 150 U/L (46-116) H Total Protein 8.8 G/DL (6.4-8.2) H Albumin 3.1 G/DL (3.4-5.0) L Globulin 5.7 g/dL Albumin/Globulin Ratio 0.5 (1.0-2.7) L Current Medications Medications (Trade) Dose Ordered Sig/Maicol Route PRN Reason Start Time Stop Time Status Last Admin Dose Admin Acetaminophen (Tylenol) 650 mg Q6H PRN GT Mild Pain/Temp > 100.5 03/23/19 15:15 04/22/19 15:14 03/23/19 19:09 Albuterol/ Ipratropium (Albuterol/ Ipratropium) 3 ml Q4HRT HHN 03/25/19 11:00 03/30/19 10:59 03/29/19 06:43 Atropine Sulfate (Atropine Opth Adriana) 2 drop TID SL 03/07/19 09:00 04/06/19 08:59 03/29/19 09:06 Bacitracin (Bacitracin 15gm tube) 1 applic THREE TIMES A DAY TOPIC 02/28/19 18:30 03/30/19 18:29 03/29/19 09:06 Chlorhexidine Gluconate (Cesilia-Hex 2%) 1 applic DAILY@1999 TOPIC 03/12/19 20:00 04/11/19 19:59 03/28/19 19:42 Heparin Sodium (Porcine) (Heparin 5000 units/ml) 5,000 units EVERY 12 HOURS SUBQ 03/22/19 21:00 03/31/19 23:14 03/29/19 09:07 Hydralazine HCl (Apresoline) 10 mg Q4H PRN IV For High Blood Pressure 03/12/19 09:00 04/11/19 08:59 03/18/19 18:17 Lansoprazole (Prevacid) 30 mg Q12HR GT 03/29/19 09:00 04/24/19 20:59 03/29/19 09:05 Levetiracetam (Keppra) 750 mg Q12HR GT 03/22/19 21:00 03/31/19 23:29 03/29/19 09:05 Lorazepam (Ativan 2mg/ml 1ml) 0.5 mg Q2H PRN IV For Seizures 03/23/19 15:15 03/30/19 15:14 Metoclopramide HCl (Reglan) 5 mg Q6H IVP 03/24/19 20:00 04/23/19 19:59 03/29/19 09:05 Ondansetron HCl (Zofran) 4 mg Q4H PRN IVP Nausea & Vomiting 03/18/19 18:15 04/17/19 18:14 03/21/19 08:27 Chauncey Liriano MD Mar 29, 2019 09:46
--- NOTE | 2019-03-29 10:02 | Nephrology Progress Note ---
Assessment/Plan Problem List: (1) Acute renal failure (ARF) Assessment: Cr stable (2) Chronic respiratory failure (3) Anemia (4) Sepsis Assessment Acute renal failure Respiratory failure - Trach Low Mag- Low k , Low Na Anemia UTI / Sepsis Proteinuria / HypoAlbuminemia high Trigs Sz decubs bed bound DNR Plan now has JT bolus Albumin as needed K and Mag and Phos supplement as needed Hydrate as needed Urine studies avoid Nephrotoxics mag K Phos supplements as needed monitor renal parameters Subjective ROS Limited/Unobtainable: Yes Objective Objective Last 24 Hour Vital Signs Date Time Temp Pulse Resp B/P (MAP) Pulse Ox O2 Delivery O2 Flow Rate FiO2 03/29/19 09:00 73 18 141/52 (81) 100 03/29/19 08:00 98.5 72 18 126/57 (80) 100 03/29/19 07:00 93 16 132/67 (88) 100 03/29/19 06:53 99 21 100 T-Piece 5.0 84 19 100 03/29/19 06:43 100 T-Piece 5.0 03/29/19 06:00 73 22 124/53 (76) 100 03/29/19 05:00 78 21 125/58 (80) 100 03/29/19 04:00 98.4 78 21 135/58 (83) 100 03/29/19 04:00 T-piece 5.0 T-piece 5.0 03/29/19 04:00 28 03/29/19 03:00 78 19 118/52 (74) 100 03/29/19 02:59 77 03/29/19 02:20 100 T-Piece 5.0 03/29/19 02:20 73 19 100 T-Piece 5.0 73 20 100 03/29/19 02:00 77 18 107/57 (74) 100 03/29/19 01:00 77 22 118/53 (74) 99 03/29/19 00:00 98.2 78 22 104/52 (69) 99 03/29/19 00:00 28 03/29/19 00:00 T-piece 5.0 T-piece 5.0 03/28/19 23:24 83 17 100 T-Piece 5.0 28 81 20 98 03/28/19 23:17 84 03/28/19 23:00 88 23 140/55 (83) 100 03/28/19 22:00 82 23 112/57 (75) 100 03/28/19 21:00 83 23 130/71 (90) 100 03/28/19 20:00 98.5 79 22 130/61 (84) 100 03/28/19 20:00 28 03/28/19 20:00 T-piece 5.0 T-piece 5.0 03/28/19 19:36 99 T-Piece 5.0 03/28/19 19:34 82 19 100 T-Piece 5.0 93 20 99 03/28/19 19:33 93 03/28/19 19:00 86 21 136/81 (99) 100 86 03/28/19 18:00 97.6 73 22 110/55 (73) 100 03/28/19 17:00 71 21 87/48 (61) 100 03/28/19 16:00 T-piece 6.0 T-piece 6.0 03/28/19 16:00 71 03/28/19 16:00 76 20 95/46 (62) 99 03/28/19 16:00 28 03/28/19 15:00 75 23 122/56 (78) 100 03/28/19 14:56 74 16 100 T-Piece 5.0 76 15 100 03/28/19 14:00 74 21 105/49 (67) 100 03/28/19 13:39 100 T-Piece 5.0 03/28/19 13:00 78 20 125/46 (72) 100 03/28/19 12:00 98.3 81 19 119/54 (75) 100 03/28/19 12:00 74 03/28/19 12:00 T-piece 6.0 T-piece 6.0 03/28/19 12:00 28 03/28/19 11:08 89 17 100 T-Piece 5.0 85 23 100 03/28/19 11:00 83 23 131/50 (77) 100 83 Intake and Output 03/28/19 03/29/19 19:00 07:00 Intake Total 800 ml 840 ml Output Total 200 ml 490 ml Balance 600 ml 350 ml Free Water 150 ml 120 ml Tube Feeding 650 ml 600 ml Other 120 ml Output Urine Total 90 ml 460 ml Gastric Drainage Total 110 ml 30 ml Laboratory Tests 03/29/19 05:10: White Blood Count 10.6, Red Blood Count 3.24L, Hemoglobin 9.1L, Hematocrit 28.7L , Mean Corpuscular Volume 89, Mean Corpuscular Hemoglobin 28.0, Mean Corpuscular Hemoglobin Concent 31.6L, Red Cell Distribution Width 16.9H, Platelet Count 248, Mean Platelet Volume 6.5, Neutrophils (%) (Auto) 55.4, Lymphocytes (%) (Auto) 33.8, Monocytes (%) (Auto) 5.0, Eosinophils (%) (Auto) 5.0H, Basophils (%) (Auto) 0.9, Sodium Level 140, Potassium Level 4.4, Chloride Level 103, Carbon Dioxide Level 31, Anion Gap 6, Blood Urea Nitrogen 50H, Creatinine 1.2, Estimat Glomerular Filtration Rate , Glucose Level 119H, Calcium Level 9.3, Phosphorus Level 4.6, Magnesium Level 2.6H, Total Bilirubin 0.2, Aspartate Amino Transf (AST/SGOT) 22, Alanine Aminotransferase (ALT/SGPT) 35, Alkaline Phosphatase 150H, Total Protein 8.8H, Albumin 3.1L, Globulin 5.7, Albumin/Globulin Ratio 0.5L Height (Feet): 5 Height (Inches): 4.00 Weight (Pounds): 112 General Appearance: no apparent distress EENT: other - trach to O2 tube Cardiovascular: normal rate Respiratory/Chest: decreased breath sounds Abdomen: distended Objective no change Eric Cortez MD Mar 29, 2019 10:02
--- NOTE | 2019-03-29 10:34 | Surgery Progress Note ---
Surgery Progress Note Subjective Additional Comments stable no acute events Objective Last 24 Hour Vital Signs Date Time Temp Pulse Resp B/P (MAP) Pulse Ox O2 Delivery O2 Flow Rate FiO2 03/29/19 10:00 78 19 125/56 (79) 100 03/29/19 09:00 73 18 141/52 (81) 100 03/29/19 08:00 28 03/29/19 08:00 T-piece 5.0 T-piece 5.0 03/29/19 08:00 98.5 72 18 126/57 (80) 100 03/29/19 08:00 73 03/29/19 07:00 93 16 132/67 (88) 100 03/29/19 06:53 99 21 100 T-Piece 5.0 28 84 19 100 03/29/19 06:43 100 T-Piece 5.0 28 03/29/19 06:00 73 22 124/53 (76) 100 03/29/19 05:00 78 21 125/58 (80) 100 03/29/19 04:00 98.4 78 21 135/58 (83) 100 03/29/19 04:00 T-piece 5.0 T-piece 5.0 03/29/19 04:00 28 03/29/19 03:00 78 19 118/52 (74) 100 03/29/19 02:59 77 03/29/19 02:20 100 T-Piece 5.0 03/29/19 02:20 73 19 100 T-Piece 5.0 28 73 20 100 03/29/19 02:00 77 18 107/57 (74) 100 03/29/19 01:00 77 22 118/53 (74) 99 03/29/19 00:00 98.2 78 22 104/52 (69) 99 03/29/19 00:00 28 03/29/19 00:00 T-piece 5.0 T-piece 5.0 03/28/19 23:24 83 17 100 T-Piece 5.0 28 81 20 98 03/28/19 23:17 84 03/28/19 23:00 88 23 140/55 (83) 100 03/28/19 22:00 82 23 112/57 (75) 100 03/28/19 21:00 83 23 130/71 (90) 100 03/28/19 20:00 98.5 79 22 130/61 (84) 100 03/28/19 20:00 28 03/28/19 20:00 T-piece 5.0 T-piece 5.0 03/28/19 19:36 99 T-Piece 5.0 03/28/19 19:34 82 19 100 T-Piece 5.0 93 20 99 03/28/19 19:33 93 03/28/19 19:00 86 21 136/81 (99) 100 86 03/28/19 18:00 97.6 73 22 110/55 (73) 100 03/28/19 17:00 71 21 87/48 (61) 100 03/28/19 16:00 T-piece 6.0 T-piece 6.0 03/28/19 16:00 71 03/28/19 16:00 76 20 95/46 (62) 99 03/28/19 16:00 28 03/28/19 15:00 75 23 122/56 (78) 100 03/28/19 14:56 74 16 100 T-Piece 5.0 76 15 100 03/28/19 14:00 74 21 105/49 (67) 100 03/28/19 13:39 100 T-Piece 5.0 03/28/19 13:00 78 20 125/46 (72) 100 03/28/19 12:00 98.3 81 19 119/54 (75) 100 03/28/19 12:00 74 03/28/19 12:00 T-piece 6.0 T-piece 6.0 03/28/19 12:00 28 03/28/19 11:08 89 17 100 T-Piece 5.0 85 23 100 03/28/19 11:00 83 23 131/50 (77) 100 83 I&O Intake and Output 03/28/19 03/29/19 19:00 07:00 Intake Total 800 ml 840 ml Output Total 200 ml 490 ml Balance 600 ml 350 ml Free Water 150 ml 120 ml Tube Feeding 650 ml 600 ml Other 120 ml Output Urine Total 90 ml 460 ml Gastric Drainage Total 110 ml 30 ml Dressing: dry Wound: clean Cardiovascular: RSR Respiratory: clear Abdomen: soft, non-tender, present bowel sounds, non-distended Extremities: no tenderness, no cyanosis, other Laboratory Tests Test 03/29/19 05:10 White Blood Count 10.6 K/UL (4.8-10.8) Red Blood Count 3.24 M/UL (4.20-5.40) L Hemoglobin 9.1 G/DL (12.0-16.0) L Hematocrit 28.7 % (37.0-47.0) L Mean Corpuscular Volume 89 FL (80-99) Mean Corpuscular Hemoglobin 28.0 PG (27.0-31.0) Mean Corpuscular Hemoglobin Concent 31.6 G/DL (32.0-36.0) L Red Cell Distribution Width 16.9 % (11.6-14.8) H Platelet Count 248 K/UL (150-450) Mean Platelet Volume 6.5 FL (6.5-10.1) Neutrophils (%) (Auto) 55.4 % (45.0-75.0) Lymphocytes (%) (Auto) 33.8 % (20.0-45.0) Monocytes (%) (Auto) 5.0 % (1.0-10.0) Eosinophils (%) (Auto) 5.0 % (0.0-3.0) H Basophils (%) (Auto) 0.9 % (0.0-2.0) Sodium Level 140 MMOL/L (136-145) Potassium Level 4.4 MMOL/L (3.5-5.1) Chloride Level 103 MMOL/L (98-107) Carbon Dioxide Level 31 MMOL/L (21-32) Anion Gap 6 mmol/L (5-15) Blood Urea Nitrogen 50 mg/dL (7-18) H Creatinine 1.2 MG/DL (0.55-1.30) Estimat Glomerular Filtration Rate mL/min (>60) Glucose Level 119 MG/DL (74-106) H Calcium Level 9.3 MG/DL (8.5-10.1) Phosphorus Level 4.6 MG/DL (2.5-4.9) Magnesium Level 2.6 MG/DL (1.8-2.4) H Total Bilirubin 0.2 MG/DL (0.2-1.0) Aspartate Amino Transf (AST/SGOT) 22 U/L (15-37) Alanine Aminotransferase (ALT/SGPT) 35 U/L (12-78) Alkaline Phosphatase 150 U/L (46-116) H Total Protein 8.8 G/DL (6.4-8.2) H Albumin 3.1 G/DL (3.4-5.0) L Globulin 5.7 g/dL Albumin/Globulin Ratio 0.5 (1.0-2.7) L Plan Problems: (1) Sacral decubitus ulcer Assessment & Plan: This is a 83-year-old female with multiple medical committees that is currently admitted for medical care and management and identified to have multiple wounds requiring care. On admission patient noted to have a resolved sacral decubitus ulcer. Has had prior care and is well-healed at this time. Will ensure it does not open up again. Patient has a right ischial decubitus ulcer that is resolved. Scar intact and well formed. Will monitor to ensure it does not open up again. Patient has a left ischial decubitus ulcer that can be identified to be stage IV with palpable bone that has been resolving as noted by the periwound tissue and scar but open area approximately 1 cm x 1.5 cm few millimeters deep to bone identified. Unsure if this is been to be completely healed prior and has since opened or if has been healing at this level. No foul odor no drainage was unsure local wound care until healed Bilateral heels soft without signs of injury Resolving pressure injury L ischium(L)1.8cm x (W)1cm.Scattered biofilm at base of wound. Edges flat and adherent with surrounding hyperpigmentation. No odor or exudate noted. Sacrum is pale pink with surrounding hyperpigmentation. Hyperpigmentation R ischium with small sheared area centrally.No areas of erythema or exudate noted. Both heels are soft but blanchable. Skin Assessed under collar of trach and no evidence of skin breakdown noted. All wound Tx. are effective and continued as ordered. Pt ahs an APM/Belén mattress overlay and is being repositioned per protocols and per tolerance.No new skin concerns noted. Full thickness pressure injury L Ischium with small amt biofilm (L)1.8cm x (W) 1cm. Surrounding pink hyperpigmentation. No odor or exudate noted. [place] hyperpigmentation from previous wound noted to sacrum. Pt also noted to have Cat 2 Skin Tear dorsal L hand, L 5th metatarsal extending into palm of hand. 80% skin flap in situ.Both heels are dry firm and blanchable. No other skin concerns noted. R ischial wound has resolved. [place] epithelial with surrounding hyperpigmentation. from historical wound. Full thickness pressure injury L ischium. [place] granulation at base of wound. Borders are macerated with Surrounding hyperpigmentation.Small amt non-odorous serous exudate noted.(L)0.7cm x (W)0.8cm. Skin hyperpigmentation from historical wound noted to Sacrum. Small sheared area noted to sacrococcygeal area.(L)0.4cm x (W)0.3cm.Small amt sanguineous exudate noted. Reabsorbed blister with semi-detached dry necrotic cap noted to web space of L thumb and L index fingers extending into palm of L hand. No odor or exudate noted. Skin assessed under tracheal collar and no erythema or evidence of Skin Breakdown noted. NO new skin concerns noted . Good hand hygiene provided to both hands. R hand contracted and fisted. Fingernails trimmed. Wound care provided along with Primary nurse. Wound Tx continued as ordered. New order obtained from to apply Betadine to wound L hand Daily. Tx done as ordered. L hand wrapped with kerlix weaving kerlix between fingers to separate fingers. Moisture Barrier applied to sacrum ,R ischium. Each site covered with Optifoam drsg. Both lower ext washed and moisturized. Cavilon Skin Barrier applied to both heels.Each heel covered with Optifoam drsgs. Pt positioned with pillows and both heels off-loaded with pillow. Tx.Plan: Apply Betadine to wound L hand. Cover with Gauze and wrap with Kerlix Daily and prn. Cleanse L ischial wound with Saline. Apply Therahoney. Apply Moisture Barrier periwound. Cover with Optifoam drsgevery 3 days and prn. Apply Moisture Barrier Paste to R ischium and Sacrum. Cover each area with Optifoam drsg. Change every 3 days and prn. Apply Cavilon Skin Barrier to both heels. Cover each heel with Optifoam drsg. Change every 7 days and prn. APM/BELÉN Mattress overlay. Reposition at least every 2hours or as tolerated. Off-load heels with pillow. Cleanse Blister Dorsal and palm of L hand with saline. Versatel One Silicone Contact Layer(Applied). Apply Silvasorb Gel. Wrap with Kerlix Gauze.Change every 7 days and prn. Apply Moisture Barrier to sacrum. Cover with Optifoam drsg. Change every 3 days and prn. Cleanse L ischial wound with saline. Apply Therahoney. Apply Moisture Barrier Paste periwound. Cover with Optifoam drsg. Change every 3 days and prn. Apply Cavilon Skin Barrier to both heels. Cover each heel with Optifoam drsg. Change every 7 days and prn. APM/BELÉN Mattress overlay. Reposition at least every 2hours or as tolerated. Off-load heels with pillow. Nutritional optimization We will monitor follow with recommendations cont with above upon d/c (2) Sepsis Assessment & Plan: IV abx as per ID trend labs improving wounds unlikely etiology likely respiratory imaging noted and okay abnormal lft's stable PICC on Abx in ICU for desaturation CXR with consolidation cont with frequent suctioning d/c planning possible placement found Evidence of left lower lobe pneumonia, also previously demonstrated Gastrostomy in good position Mild diastasis of the rectus abdominis musculature again demonstrated Retrosacral decubitus changes, better depicted on prior exam which included the pelvis Small hiatal hernia with evidence of trace gastroesophageal reflux Discussed with GI. Recommend GJ family still pending decision (3) Feeding by G-tube Assessment & Plan: DAILY ESTIMATED NEEDS: Needs based on Pulmonary, wounds, bedbound/ 61kg adj 25-30 kcals/kg 6637-8313 total kcals 1.25-2 g protein/kg 76-122 g total protein 25-30 mL/kg 9932-6022 total fluid mLs NUTRITION DIAGNOSIS: * Increased kcal/prot needs R/T wound healing as evidenced by BL buttocks and sacral wound photos, refer to eval. * Swallowing difficulty R/T respiratory status as evidenced by pt on T-collar, now back the vent, PEG dep. CURRENT TF:Glucerna 1.5 @ 25ml/hr x 24 hrs - currently HELD d/t emesis ENTERAL NUTRITION RECOMMENDATIONS: Glucerna 1.5 @ 45ml/hr x 24 hrs to provide 1080ml, 1620kcal, 89g prot, 820ml free water - As medically able, rec to increase goal rate to 45ml/hr x24 hrs to meet 100% est kcal/prot needs - HOB over 30 degrees - Water flush of 170ml q 6 hrs * W/ continued regurgitation/ emesis, rec Osmolite 1.5 for GI tolerance. Rec goal of 45ml/hr to provide: 1080ml, 1620 kcal, 68g pro, 823ml free H20. * Add Prosource 1 pack daily to provide additional 11g pro. ADDITIONAL RECOMMENDATIONS: 1) Weekly weights 2) Wound healing: Add Cristian 1pkt BID w/ good TF tolerance + MVI x1 daily 3) Monitor lytes, replete as needed 4) Monitor BGs closely, need for NISS (wnl) 5) Monitor TF tolerance: rec Tf change as above if not (4) Chronic vegetative state Assessment & Plan: incontinence of urine and stool. can soil dressings. nurses doing great job with monitoring and changing prn (5) Leukocytosis Walter [place] Mar 29, 2019 10:34
--- NOTE | 2019-03-29 12:52 | NUR ---
NURSE NOTES: PT remains dry and clean, purewick intact connected to wall suction, Gtube and Jtube flushed with 60cc water; flushes well, no occlusion noted, Gtube placed to gravity, Jtube infusing Glucerna 1.5 @ 50cc; no residual noted, oral secretion very minimal, no gurgling or secretions noted from t-piece, will continue to monitor PT.
--- NOTE | 2019-03-29 15:29 | NUR ---
NURSE NOTES: PT daughter at bedside, updates given; phototypesetting equipment monitor during her visit showed BP 98/48; ran BP again; BP on phototypesetting equipment monitor showed 113/48; no S/S of respiratory distress noted, no gurgling or oral secretions noted. Will continue to monitor PT.
--- NOTE | 2019-03-29 17:28 | NUR ---
NURSE NOTES: PT had BM; all linens changed; wound dressing on sacrum and ischium changed, purewick changed due to being soiled. Will continue to monitor PT.
--- NOTE | 2019-03-29 18:22 | Pulmonology Progress Note ---
Assessment/Plan Assessment/Plan Pulmonary Progress Note HPI This an 83-year-old female with history of tracheostomy, VDRF, feeding tube, admitted with Pneumonia, respiratory distress. Tolerating TC Awaiting LTAC placement Past Medical History: VDRF, Trach, G tube, Hypertension, Cardiac disease, Dementia, Previous CVA, TIA, Seizure disorder, previous cancer Impression: Sepsis syndrome Pneumonia VDRF, Trach, G tube, Hypertension, Cardiac disease, Dementia, Previous CVA, Seizure disorder, Respiratory failure with hypoxia Anemia Sacral ulcer renal cyst Plan continue current AB TC as tolerated mucomyst and duoneb SNF meds as is Adjust oxygen as needed Monitor labs for change changes noted Patient is a DNR. No CPR. dc planning per family and primary impression, plan, and exam edited and reviewed in detail care discussed with RN Subjective Allergies: Coded Allergies: CODEINE (Verified Allergy, Unknown, HIVES, 09/15/09) Subjective on AC on mucomyst and duoneb noted congestion supportive care noted RT care reviewed overnight care reviewed Objective Vital Signs Noted Objective WDWN NAD contracted on vent reduced breath sounds bilaterally with scattered rhonchi same [id number] without MRG NABS nontender no HSM no CC minimal nonfocal nonverbal trach and gt reviewed and edited Laboratory Tests Noted Subjective ROS Limited/Unobtainable: No Allergies: Coded Allergies: CODEINE (Verified Allergy, Unknown, HIVES, 09/15/09) Objective Last 24 Hour Vital Signs Date Time Temp Pulse Resp B/P (MAP) Pulse Ox O2 Delivery O2 Flow Rate FiO2 03/29/19 18:00 79 20 135/53 (80) 100 03/29/19 17:00 78 21 116/56 (76) 100 03/29/19 16:00 T-piece 5.0 T-piece 5.0 03/29/19 16:00 78 03/29/19 16:00 97.7 78 20 115/45 (68) 100 03/29/19 16:00 28 03/29/19 15:00 80 22 98/48 (65) 98 03/29/19 14:43 76 21 100 T-Piece 5.0 28 73 21 100 03/29/19 14:00 79 23 96/47 (63) 99 03/29/19 13:00 117 24 147/56 (86) 98 03/29/19 12:40 100 T-Piece 5.0 28 03/29/19 12:00 T-piece 5.0 T-piece 5.0 03/29/19 12:00 76 03/29/19 12:00 97.9 79 20 126/54 (78) 100 03/29/19 12:00 28 03/29/19 11:00 81 21 131/55 (80) 99 03/29/19 10:36 79 19 100 T-Piece 5.0 28 90 25 100 03/29/19 10:00 78 19 125/56 (79) 100 03/29/19 09:00 73 18 141/52 (81) 100 03/29/19 08:00 28 03/29/19 08:00 T-piece 5.0 T-piece 5.0 03/29/19 08:00 98.5 72 18 126/57 (80) 100 03/29/19 08:00 73 03/29/19 07:00 93 16 132/67 (88) 100 03/29/19 06:53 99 21 100 T-Piece 5.0 28 84 19 100 03/29/19 06:43 100 T-Piece 5.0 03/29/19 06:00 73 22 124/53 (76) 100 03/29/19 05:00 78 21 125/58 (80) 100 03/29/19 04:00 98.4 78 21 135/58 (83) 100 03/29/19 04:00 T-piece 5.0 T-piece 5.0 03/29/19 04:00 28 03/29/19 03:00 78 19 118/52 (74) 100 03/29/19 02:59 77 03/29/19 02:20 100 T-Piece 5.0 03/29/19 02:20 73 19 100 T-Piece 5.0 28 73 20 100 03/29/19 02:00 77 18 107/57 (74) 100 03/29/19 01:00 77 22 118/53 (74) 99 03/29/19 00:00 98.2 78 22 104/52 (69) 99 03/29/19 00:00 28 03/29/19 00:00 T-piece 5.0 T-piece 5.0 03/28/19 23:24 83 17 100 T-Piece 5.0 28 81 20 98 03/28/19 23:17 84 03/28/19 23:00 88 23 140/55 (83) 100 03/28/19 22:00 82 23 112/57 (75) 100 03/28/19 21:00 83 23 130/71 (90) 100 03/28/19 20:00 98.5 79 22 130/61 (84) 100 03/28/19 20:00 28 03/28/19 20:00 T-piece 5.0 T-piece 5.0 03/28/19 19:36 99 T-Piece 5.0 28 03/28/19 19:34 82 19 100 T-Piece 5.0 28 93 20 99 03/28/19 19:33 93 03/28/19 19:00 86 21 136/81 (99) 100 86 Intake and Output 03/28/19 03/29/19 19:00 07:00 Intake Total 800 ml 840 ml Output Total 200 ml 490 ml Balance 600 ml 350 ml Free Water 150 ml 120 ml Tube Feeding 650 ml 600 ml Other 120 ml Output Urine Total 90 ml 460 ml Gastric Drainage Total 110 ml 30 ml Laboratory Tests 03/29/19 05:10: White Blood Count 10.6, Red Blood Count 3.24L, Hemoglobin 9.1L, Hematocrit 28.7L , Mean Corpuscular Volume 89, Mean Corpuscular Hemoglobin 28.0, Mean Corpuscular Hemoglobin Concent 31.6L, Red Cell Distribution Width 16.9H, Platelet Count 248, Mean Platelet Volume 6.5, Neutrophils (%) (Auto) 55.4, Lymphocytes (%) (Auto) 33.8, Monocytes (%) (Auto) 5.0, Eosinophils (%) (Auto) 5.0H, Basophils (%) (Auto) 0.9, Sodium Level 140, Potassium Level 4.4, Chloride Level 103, Carbon Dioxide Level 31, Anion Gap 6, Blood Urea Nitrogen 50H, Creatinine 1.2, Estimat Glomerular Filtration Rate , Glucose Level 119H, Calcium Level 9.3, Phosphorus Level 4.6, Magnesium Level 2.6H, Total Bilirubin 0.2, Aspartate Amino Transf (AST/SGOT) 22, Alanine Aminotransferase (ALT/SGPT) 35, Alkaline Phosphatase 150H, Total Protein 8.8H, Albumin 3.1L, Globulin 5.7, Albumin/Globulin Ratio 0.5L Current Medications Medications (Trade) Dose Ordered Sig/Maicol Route PRN Reason Start Time Stop Time Status Last Admin Dose Admin Acetaminophen (Tylenol) 650 mg Q6H PRN GT Mild Pain/Temp > 100.5 03/23/19 15:15 04/22/19 15:14 03/23/19 19:09 Albuterol/ Ipratropium (Albuterol/ Ipratropium) 3 ml Q4HRT HHN 03/25/19 11:00 03/30/19 10:59 03/29/19 14:33 Atropine Sulfate (Atropine Opth Adriana) 2 drop TID SL 03/07/19 09:00 04/06/19 08:59 03/29/19 17:37 Bacitracin (Bacitracin 15gm tube) 1 applic THREE TIMES A DAY TOPIC 02/28/19 18:30 03/30/19 18:29 03/29/19 17:37 Chlorhexidine Gluconate (Cesilia-Hex 2%) 1 applic DAILY@1999 TOPIC 03/12/19 20:00 04/11/19 19:59 03/28/19 19:42 Heparin Sodium (Porcine) (Heparin 5000 units/ml) 5,000 units EVERY 12 HOURS SUBQ 03/22/19 21:00 03/31/19 23:14 03/29/19 09:07 Hydralazine HCl (Apresoline) 10 mg Q4H PRN IV For High Blood Pressure 03/12/19 09:00 04/11/19 08:59 03/18/19 18:17 Lansoprazole (Prevacid) 30 mg Q12HR GT 03/29/19 09:00 04/24/19 20:59 03/29/19 09:05 Levetiracetam (Keppra) 750 mg Q12HR GT 03/22/19 21:00 03/31/19 23:29 03/29/19 09:05 Lorazepam (Ativan 2mg/ml 1ml) 0.5 mg Q2H PRN IV For Seizures 03/23/19 15:15 03/30/19 15:14 Metoclopramide HCl (Reglan) 5 mg Q6H IVP 03/24/19 20:00 04/23/19 19:59 03/29/19 13:28 Ondansetron HCl (Zofran) 4 mg Q4H PRN IVP Nausea & Vomiting 03/18/19 18:15 04/17/19 18:14 03/21/19 08:27 Bg Moffett MD Mar 29, 2019 18:22
--- NOTE | 2019-03-29 19:17 | NUR ---
HAND-OFF: Report and PT given to JEANNINE Sykes.
--- NOTE | 2019-03-29 19:34 | NUR ---
RESPIRATORY NOTE: Received pt on 28% Cool Aerosol via T-Piece. Pt is trach-dependent w/ a cuffed, Shiley 6 XLT tube. Cuff is currently deflated. Pt awake/responds to stimuli. B/S flory. rhonchi, sxn small to moderate amounts of thin/frothy, pale-yellow secretions. Vent on standby at bedside, plugged into red outlet. [place]ubag at bedside. Pt in no apparent distress at this time. Will continue to monitor pt.
[2019-03-29] MEDS: Dyna-Hex 2% Top Sol 2oz TOPIC SCH (19:39)
[2019-03-29] MEDS ORDERED: NS 275ml ONE (19:39)
--- NOTE | 2019-03-29 19:49 | NUR ---
NURSE NOTES: PATIENT OPEN EYES, UNABLE TO EYE CONTACT, DID NOT FOLLOW COMMANDS, RESPIRATION REGULAR, ON TRACH, FIO2 28% COOL AEROSOL T- PIECE, O2 SATURATION 100% NOTED, HEART RATE 80'S/MIN SINUS RHYTHM, ABDOMEN SOFT, NO BM STATUS, G-J TUBE INTACT AND PATENT, G TUBE DRAINING GRAVITY, ONGOING J TUBE FEEDING, GLUCERNA 1.5 AT 50ML/HR, TOLERATED FEEDING, NO N/V NOTED, KEPT HOB 30 DEGREES AND ASPIRATION PRECAUTION, VOID WITH PURE WICK, YELLOW URINE OUTED, PICC LINE TO RIGHT UPPER ARM, INTACT AND PATENT, KEPT SZ AND FALL PRECAUTION, ON P200 BED, MADE LOWER BED POSITION, ON BED ALARM AND LOCKED, PROVIDED CALL LIGHT WITHIN REACH BUT UNABLE TO USE STATUS, WILL CONTINUE TO MONITOR.
--- NOTE | 2019-03-29 21:25 | NUR ---
NURSE NOTES: PT'S DAUGHTER STAYED AT BEDSIDE, PATIENT CALM, NO SOB NOTED, WILL CONTINUE TO MONITOR.
--- NOTE | 2019-03-29 23:24 | NUR ---
NURSE NOTES: ORAL CARE WAS DONE, NO DISTRESS NOTED AT THIS TIME.
[2019-03-30] VITALS (24 sets, daily range): BP systolic 96–145; BP diastolic 43–70
[2019-03-30] MEDS: Metoclopramide 10mg/2ml Inj IVP SCH ×4 (01:38→19:49)
--- NOTE | 2019-03-30 02:03 | NUR ---
NURSE NOTES: PATIENT ASLEEP STATUS, NO DISTRESS NOTED AT THIS TIME, WILL CONTINUE PLAN OF CARE.
[2019-03-30] MEDS: Albuterol/Ipratropium 3ml neb HHN SCH ×3 (03:16→20:39)
--- NOTE | 2019-03-30 04:05 | NUR ---
NURSE NOTES: MORNING CARE AND ORAL CARE WAS DONE, NO DISTRESS NOTED WHILE CARE.
--- NOTE | 2019-03-30 06:36 | NUR ---
NURSE NOTES: G TUBE DRAINS 60ML NOTED GRAVITY AT 0600AM, NO ACUTE DISTRESS NOTED AT THIS SHIFT.
--- NOTE | 2019-03-30 07:00 | NUR ---
HAND-OFF: Report given to Eddie BALLARD RN.
--- NOTE | 2019-03-30 07:01 | NUR ---
NURSE NOTES: Received patient from JEANNINE Sykes. Patient vital signs stable at this time. Patient showing normal sinus rhythm on the size worker. Patient opens eyes but does not track or follow commands. Bilateral upper and lower extremities contracted. Upper extremities contracted at the elbow and bilateral lower extremities contracted straight with foot drop. Patient on trach to T-Piece with cool aerosol and 28% FiO2. Patient continues to have copious tracheal secretions. Will continue to monitor. Patient oral/tracheal suctioned and oral care performed at this time. Patient has a right upper arm PICC line that is patent, asymptomatic, dressing intact, flushed, and saline locked at this time. Patient has gastrostomy/jejunostomy tube that is patent, asymptomatic, with G tube draining to gravity and J tube running tube feeding of glucerna 1.5 at 50mL/hr at this time. No residual noted in G tube at this time. Patient has purewick in place for incontinence. Patient has sacral heeled wounds noted and dressing on left hand with necrotic wound noted underneath. NO labs ordered for this morning. Will ask Dr Beltrán when he rounds on the patient if he wants to order labs for this patient. Will continue to monitor. Patient bed in low position with bed alarm on and call light in reach at this time. Patient repositioned at this time.
--- NOTE | 2019-03-30 08:19 | Pulmonology Progress Note ---
Assessment/Plan Assessment/Plan Impression: history of Sepsis history of Pneumonia Trach, G tube, Hypertension, Cardiac disease, Dementia, Previous CVA, Seizure disorder, Respiratory failure with hypoxia Anemia, Sacral ulcer renal cyst chronic pulmonary congestion Plan respiratory care as is neb therapy off vent and monitor imaging -none recent Oxygen saturations adequate Monitor labs and protein levels aspiration precautions as is polymicrobial infection noted Patient is a DNR. No CPR. ICU care reviewed medications/laboratory data/nursing notes/ICU care reviewed in detail note reviewed and edited care discussed with RN and RT ICU time spent 35 minutes Subjective ROS Limited/Unobtainable: Yes Allergies: Coded Allergies: CODEINE (Verified Allergy, Unknown, HIVES, 09/15/09) Subjective respiratory care reviewed events noted past 2 weeks ICU care reviewed still requires suctioning and RT care bed bound and obtunded findings reviewed and discussed ; imaging noted Objective Last 24 Hour Vital Signs Date Time Temp Pulse Resp B/P (MAP) Pulse Ox O2 Delivery O2 Flow Rate FiO2 03/30/19 07:14 101 18 98 T-Piece 5.0 28 03/30/19 07:14 98 T-Piece 5.0 28 03/30/19 07:13 99 22 100 T-Piece 5.0 28 101 26 100 03/30/19 07:00 69 21 136/65 (88) 100 03/30/19 06:00 68 20 134/57 (82) 100 03/30/19 05:00 74 20 142/54 (83) 100 03/30/19 04:00 T-piece 5.0 T-piece 5.0 03/30/19 04:00 98.6 93 21 127/50 (75) 100 03/30/19 04:00 28 03/30/19 04:00 93 03/30/19 03:26 100 20 100 T-Piece 5.0 28 03/30/19 03:16 102 17 100 T-Piece 5.0 03/30/19 03:00 68 20 102/43 (62) 100 03/30/19 02:00 67 20 99/55 (70) 100 03/30/19 01:34 100 T-Piece 5.0 03/30/19 01:00 71 21 100/47 (64) 100 03/30/19 00:00 T-piece 5.0 T-piece 5.0 12/30/19 00:00 28 03/30/19 00:00 98.4 77 22 109/48 (68) 100 03/30/19 00:00 77 03/29/19 23:17 79 23 100 T-Piece 5.0 03/29/19 23:07 76 18 100 T-Piece 5.0 03/29/19 23:00 75 23 132/57 (82) 100 03/29/19 22:00 78 22 118/45 (69) 100 03/29/19 21:00 116 20 148/55 (86) 96 03/29/19 20:00 98.4 79 20 130/55 (80) 100 03/29/19 20:00 79 03/29/19 20:00 T-piece 5.0 T-piece 5.0 03/29/19 20:00 28 03/29/19 19:35 115 23 100 T-Piece 5.0 03/29/19 19:25 113 23 98 T-Piece 5.0 03/29/19 19:25 98 T-Piece 5.0 03/29/19 19:00 77 20 131/51 (77) 100 03/29/19 18:00 79 20 135/53 (80) 100 03/29/19 17:00 78 21 116/56 (76) 100 03/29/19 16:00 T-piece 5.0 T-piece 5.0 03/29/19 16:00 78 03/29/19 16:00 97.7 78 20 115/45 (68) 100 03/29/19 16:00 28 03/29/19 15:00 80 22 98/48 (65) 98 03/29/19 14:43 76 21 100 T-Piece 5.0 28 73 21 100 03/29/19 14:00 79 23 96/47 (63) 99 03/29/19 13:00 117 24 147/56 (86) 98 03/29/19 12:40 100 T-Piece 5.0 03/29/19 12:00 T-piece 5.0 T-piece 5.0 03/29/19 12:00 76 03/29/19 12:00 97.9 79 20 126/54 (78) 100 03/29/19 12:00 28 03/29/19 11:00 81 21 131/55 (80) 99 03/29/19 10:36 79 19 100 T-Piece 5.0 28 90 25 100 03/29/19 10:00 78 19 125/56 (79) 100 03/29/19 09:00 73 18 141/52 (81) 100 Intake and Output 03/29/19 03/30/19 18:59 06:59 Intake Total 900 ml 900 ml Output Total 440 ml 390 ml Balance 460 ml 510 ml Free Water 120 ml 120 ml Tube Feeding 600 ml 600 ml Other 180 ml 180 ml Output Urine Total 310 ml 330 ml Gastric Drainage Total 130 ml 60 ml # Voids 1 # Bowel Movements 1 Objective WDWN NAD contracted off vent reduced breath sounds bilaterally with some rhonchi [id number] without MRG NABS nontender no HSM no CC trace edema nonfocal nonverbal trach and gt reviewed and edited Current Medications Medications (Trade) Dose Ordered Sig/Maicol Route PRN Reason Start Time Stop Time Status Last Admin Dose Admin Acetaminophen (Tylenol) 650 mg Q6H PRN GT Mild Pain/Temp > 100.5 03/23/19 15:15 04/22/19 15:14 03/23/19 19:09 Albuterol/ Ipratropium (Albuterol/ Ipratropium) 3 ml Q4HRT HHN 03/25/19 11:00 03/30/19 10:59 03/30/19 07:13 Atropine Sulfate (Atropine Opth Adriana) 2 drop TID SL 03/07/19 09:00 04/06/19 08:59 03/29/19 17:37 Bacitracin (Bacitracin 15gm tube) 1 applic THREE TIMES A DAY TOPIC 02/28/19 18:30 03/30/19 18:29 03/29/19 17:37 Chlorhexidine Gluconate (Cesilia-Hex 2%) 1 applic DAILY@1999 TOPIC 03/12/19 20:00 04/11/19 19:59 03/29/19 19:39 Heparin Sodium (Porcine) (Heparin 5000 units/ml) 5,000 units EVERY 12 HOURS SUBQ 03/22/19 21:00 03/31/19 23:14 03/29/19 20:50 Hydralazine HCl (Apresoline) 10 mg Q4H PRN IV For High Blood Pressure 03/12/19 09:00 04/11/19 08:59 03/18/19 18:17 Lansoprazole (Prevacid) 30 mg Q12HR GT 03/29/19 09:00 04/24/19 20:59 03/29/19 20:49 Levetiracetam (Keppra) 750 mg Q12HR GT 03/22/19 21:00 03/31/19 23:29 03/29/19 20:49 Lorazepam (Ativan 2mg/ml 1ml) 0.5 mg Q2H PRN IV For Seizures 03/23/19 15:15 03/30/19 15:14 Metoclopramide HCl (Reglan) 5 mg Q6H IVP 03/24/19 20:00 04/23/19 19:59 03/30/19 01:38 Ondansetron HCl (Zofran) 4 mg Q4H PRN IVP Nausea & Vomiting 03/18/19 18:15 04/17/19 18:14 03/21/19 08:27 Amaury Chan MD Mar 30, 2019 08:19
[2019-03-30] MEDS: levETIRAcetam 500mg/5ml Liquid GT SCH ×2 (08:50→20:41)
[2019-03-30] MEDS: Heparin 5000 units/ml inj SUBQ SCH ×2 (08:56→20:43)
[2019-03-30] MEDS: Bacitracin Oint 15gm Tube TOPIC SCH ×3 (08:56→17:33)
--- NOTE | 2019-03-30 10:00 | NUR ---
NURSE NOTES: Patient vital signs stable with no sign of acute distress. Patient oral/tracheal suctioned and repositioned at this time. Dr Beltrán rounded on the patient at 0830. No new orders received. Will continue to monitor.
--- NOTE | 2019-03-30 10:15 | General Progress Note ---
Assessment/Plan Status: stable, progressing Assessment/Plan: Assessment - N/V, periodic, including suctioning of feeds from mouth - suspect due to gastroparesis, possibly also from suctioning reflex - DTR declines GJ conversion. - - will Rx with reglan, short term - suction gently - Elevated Alk phos / LFT - CT negative - abd U/S negative - check hepatitis serologies - negative - Anemia with OB (-) stools - Resp failure, s/p Trach - dysphagia, s/p PEG --> s/p GT change - OBS - minor GT tract inflammation / infection - poor Px Recommendations - laxative PRN - antibiotic ointment to GT site PRN - aspiration precautions - elevate HOB - PPI -GTF Subjective ROS Limited/Unobtainable: No Allergies: Coded Allergies: CODEINE (Verified Allergy, Unknown, HIVES, 09/15/09) Objective Last 24 Hour Vital Signs Date Time Temp Pulse Resp B/P (MAP) Pulse Ox O2 Delivery O2 Flow Rate FiO2 03/30/19 07:14 101 18 98 T-Piece 5.0 03/30/19 07:14 98 T-Piece 5.0 28 03/30/19 07:13 99 22 100 T-Piece 5.0 28 101 26 100 03/30/19 07:00 69 21 136/65 (88) 100 03/30/19 06:00 68 20 134/57 (82) 100 03/30/19 05:00 74 20 142/54 (83) 100 03/30/19 04:00 T-piece 5.0 T-piece 5.0 03/30/19 04:00 98.6 93 21 127/50 (75) 100 03/30/19 04:00 28 03/30/19 04:00 93 03/30/19 03:26 100 20 100 T-Piece 5.0 03/30/19 03:16 102 17 100 T-Piece 5.0 03/30/19 03:00 68 20 102/43 (62) 100 03/30/19 02:00 67 20 99/55 (70) 100 03/30/19 01:34 100 T-Piece 5.0 03/30/19 01:00 71 21 100/47 (64) 100 03/30/19 00:00 T-piece 5.0 T-piece 5.0 03/30/19 00:00 28 03/30/19 00:00 98.4 77 22 109/48 (68) 100 03/30/19 00:00 77 03/29/19 23:17 79 23 100 T-Piece 5.0 28 03/29/19 23:07 76 18 100 T-Piece 5.0 03/29/19 23:00 75 23 132/57 (82) 100 03/29/19 22:00 78 22 118/45 (69) 100 03/29/19 21:00 116 20 148/55 (86) 96 03/29/19 20:00 98.4 79 20 130/55 (80) 100 03/29/19 20:00 79 03/29/19 20:00 T-piece 5.0 T-piece 5.0 03/29/19 20:00 28 03/29/19 19:35 115 23 100 T-Piece 5.0 03/29/19 19:25 113 23 98 T-Piece 5.0 03/29/19 19:25 98 T-Piece 5.0 03/29/19 19:00 77 20 131/51 (77) 100 03/29/19 18:00 79 20 135/53 (80) 100 03/29/19 17:00 78 21 116/56 (76) 100 03/29/19 16:00 T-piece 5.0 T-piece 5.0 03/29/19 16:00 78 03/29/19 16:00 97.7 78 20 115/45 (68) 100 03/29/19 16:00 28 03/29/19 15:00 80 22 98/48 (65) 98 03/29/19 14:43 76 21 100 T-Piece 5.0 28 73 21 100 03/29/19 14:00 79 23 96/47 (63) 99 03/29/19 13:00 117 24 147/56 (86) 98 03/29/19 12:40 100 T-Piece 5.0 03/29/19 12:00 T-piece 5.0 T-piece 5.0 03/29/19 12:00 76 03/29/19 12:00 97.9 79 20 126/54 (78) 100 03/29/19 12:00 28 03/29/19 11:00 81 21 131/55 (80) 99 03/29/19 10:36 79 19 100 T-Piece 5.0 28 90 25 100 Intake and Output 03/29/19 03/30/19 19:00 07:00 Intake Total 900 ml 900 ml Output Total 380 ml 440 ml Balance 520 ml 460 ml Free Water 120 ml 120 ml Tube Feeding 600 ml 600 ml Other 180 ml 180 ml Output Urine Total 280 ml 380 ml Gastric Drainage Total 100 ml 60 ml # Voids 1 # Bowel Movements 1 Height (Feet): 5 Height (Inches): 4.00 Weight (Pounds): 110 General Appearance: no apparent distress, lethargic EENT: normal ENT inspection Neck: supple Cardiovascular: normal rate Respiratory/Chest: decreased breath sounds Abdomen: normal bowel sounds, non tender, soft Extremities: non-tender Gary Guzman MD Mar 30, 2019 10:15
--- NOTE | 2019-03-30 10:39 | General Progress Note ---
Assessment/Plan Problem List: (1) Seizure ICD Codes: R56.9 - Unspecified convulsions SNOMED: 38072932 (2) Anemia ICD Codes: D64.9 - Anemia, unspecified SNOMED: 108211827 Qualifiers: Qualified Codes: D64.9 - Anemia, unspecified (3) Sepsis ICD Codes: A41.9 - Sepsis, unspecified organism SNOMED: 60516482, 207226889 Qualifiers: Qualified Codes: A41.9 - Sepsis, unspecified organism (4) Respiratory failure with hypoxia ICD Codes: J96.91 - Respiratory failure, unspecified with hypoxia SNOMED: 66434815191996467 Qualifiers: Qualified Codes: J96.21 - Acute and chronic respiratory failure with hypoxia (5) HCAP (healthcare-associated pneumonia) ICD Codes: J18.9 - Pneumonia, unspecified organism SNOMED: 674929128, 201031998 (6) Sacral decubitus ulcer ICD Codes: L89.159 - Pressure ulcer of sacral region, unspecified stage SNOMED: 894548207 (7) HTN (hypertension) ICD Codes: I10 - Essential (primary) hypertension SNOMED: 64480971 (8) Chronic vegetative state ICD Codes: R40.3 - Persistent vegetative state SNOMED: 66993164 (9) Chronic respiratory failure ICD Codes: J96.10 - Chronic respiratory failure, unspecified whether with hypoxia or hypercapnia SNOMED: 38994409 (10) Limited mobility ICD Codes: Z74.09 - Other reduced mobility SNOMED: 0834951 Status: stable, progressing Assessment/Plan: vent as needed resp rx suctioning j tube feeds g port to [facility] sz rx monitor h/h dc planning Subjective ROS Limited/Unobtainable: Yes Constitutional: Reports: malaise, weakness HEENT: Reports: no symptoms Cardiovascular: Reports: no symptoms Respiratory: Reports: cough, shortness of breath, sputum Gastrointestinal/Abdominal: Reports: difficulty swallowing Genitourinary: Reports: no symptoms Neurologic/Psychiatric: Reports: pre-existing deficit, seizure Endocrine: Reports: no symptoms Hematologic/Lymphatic: Reports: no symptoms Allergies: Coded Allergies: CODEINE (Verified Allergy, Unknown, HIVES, 09/15/09) All Systems: reviewed and negative except above Subjective no events. stable on the vent, tolerating feeds, no fevers. no szs. Objective Last 24 Hour Vital Signs Date Time Temp Pulse Resp B/P (MAP) Pulse Ox O2 Delivery O2 Flow Rate FiO2 03/30/19 07:14 101 18 98 T-Piece 5.0 28 03/30/19 07:14 98 T-Piece 5.0 28 03/30/19 07:13 99 22 100 T-Piece 5.0 28 101 26 100 03/30/19 07:00 69 21 136/65 (88) 100 03/30/19 06:00 68 20 134/57 (82) 100 03/30/19 05:00 74 20 142/54 (83) 100 03/30/19 04:00 T-piece 5.0 T-piece 5.0 03/30/19 04:00 98.6 93 21 127/50 (75) 100 03/30/19 04:00 28 03/30/19 04:00 93 03/30/19 03:26 100 20 100 T-Piece 5.0 28 03/30/19 03:16 102 17 100 T-Piece 5.0 28 03/30/19 03:00 68 20 102/43 (62) 100 03/30/19 02:00 67 20 99/55 (70) 100 03/30/19 01:34 100 T-Piece 5.0 03/30/19 01:00 71 21 100/47 (64) 100 03/30/19 00:00 T-piece 5.0 T-piece 5.0 03/30/19 00:00 28 03/30/19 00:00 98.4 77 22 109/48 (68) 100 03/30/19 00:00 77 03/29/19 23:17 79 23 100 T-Piece 5.0 28 03/29/19 23:07 76 18 100 T-Piece 5.0 03/29/19 23:00 75 23 132/57 (82) 100 03/29/19 22:00 78 22 118/45 (69) 100 03/29/19 21:00 116 20 148/55 (86) 96 03/29/19 20:00 98.4 79 20 130/55 (80) 100 03/29/19 20:00 79 03/29/19 20:00 T-piece 5.0 T-piece 5.0 03/29/19 20:00 28 03/29/19 19:35 115 23 100 T-Piece 5.0 28 03/29/19 19:25 113 23 98 T-Piece 5.0 28 03/29/19 19:25 98 T-Piece 5.0 28 03/29/19 19:00 77 20 131/51 (77) 100 03/29/19 18:00 79 20 135/53 (80) 100 03/29/19 17:00 78 21 116/56 (76) 100 03/29/19 16:00 T-piece 5.0 T-piece 5.0 03/29/19 16:00 78 03/29/19 16:00 97.7 78 20 115/45 (68) 100 03/29/19 16:00 28 03/29/19 15:00 80 22 98/48 (65) 98 03/29/19 14:43 76 21 100 T-Piece 5.0 28 73 21 100 03/29/19 14:00 79 23 96/47 (63) 99 03/29/19 13:00 117 24 147/56 (86) 98 03/29/19 12:40 100 T-Piece 5.0 03/29/19 12:00 T-piece 5.0 T-piece 5.0 03/29/19 12:00 76 03/29/19 12:00 97.9 79 20 126/54 (78) 100 03/29/19 12:00 28 03/29/19 11:00 81 21 131/55 (80) 99 Intake and Output 03/29/19 03/30/19 18:59 06:59 Intake Total 900 ml 900 ml Output Total 440 ml 390 ml Balance 460 ml 510 ml Free Water 120 ml 120 ml Tube Feeding 600 ml 600 ml Other 180 ml 180 ml Output Urine Total 310 ml 330 ml Gastric Drainage Total 130 ml 60 ml # Voids 1 # Bowel Movements 1 Height (Feet): 5 Height (Inches): 4.00 Weight (Pounds): 110 Objective General Appearance: WD/WN, confused. on trach collar Neck: supple Cardiovascular: normal rate, regular rhythm Respiratory/Chest: chest wall non-tender, rhonchi - bilaterally(minimal) Abdomen: normal bowel sounds, non tender, soft, no organomegaly Edema: no edema noted Arm (L), no edema noted Arm (R), no edema noted Leg (L), no edema noted Leg (R), no edema noted Pedal (L), no edema noted Pedal (R), no edema noted Generalized Neurologic: disoriented, unresponsive, aphasia Irvin Beltrán MD Mar 30, 2019 10:39
--- NOTE | 2019-03-30 11:01 | Infectious Diseases Prog Note ---
"Assessment/Plan Assessment/Plan antibiotics : none A 1. klebsiella | providencia pneumonia s/p rx 2. respiratory failure 3. hypertension 4. CVA 5. dementia 6. sacral decubitus ulcer 7. rectal VRE colonization P 1. observe off antibiotics 2. dc planned Subjective ROS Limited/Unobtainable: Yes Allergies: Coded Allergies: CODEINE (Verified Allergy, Unknown, HIVES, 09/15/09) Objective Vital Signs Last 24 Hour Vital Signs Date Time Temp Pulse Resp B/P (MAP) Pulse Ox O2 Delivery O2 Flow Rate FiO2 03/30/19 10:00 71 23 137/63 (87) 100 03/30/19 09:00 72 20 145/55 (85) 100 03/30/19 08:00 98.7 69 20 127/61 (83) 100 03/30/19 08:00 28 03/30/19 07:14 101 18 98 T-Piece 5.0 03/30/19 07:14 98 T-Piece 5.0 03/30/19 07:13 99 22 100 T-Piece 5.0 28 101 26 100 03/30/19 07:00 69 21 136/65 (88) 100 03/30/19 06:00 68 20 134/57 (82) 100 03/30/19 05:00 74 20 142/54 (83) 100 03/30/19 04:00 T-piece 5.0 T-piece 5.0 03/30/19 04:00 98.6 93 21 127/50 (75) 100 03/30/19 04:00 28 03/30/19 04:00 93 03/30/19 03:26 100 20 100 T-Piece 5.0 03/30/19 03:16 102 17 100 T-Piece 5.0 03/30/19 03:00 68 20 102/43 (62) 100 03/30/19 02:00 67 20 99/55 (70) 100 03/30/19 01:34 100 T-Piece 5.0 03/30/19 01:00 71 21 100/47 (64) 100 03/30/19 00:00 T-piece 5.0 T-piece 5.0 03/30/19 00:00 28 03/30/19 00:00 98.4 77 22 109/48 (68) 100 03/30/19 00:00 77 03/29/19 23:17 79 23 100 T-Piece 5.0 03/29/19 23:07 76 18 100 T-Piece 5.0 03/29/19 23:00 75 23 132/57 (82) 100 03/29/19 22:00 78 22 118/45 (69) 100 03/29/19 21:00 116 20 148/55 (86) 96 03/29/19 20:00 98.4 79 20 130/55 (80) 100 03/29/19 20:00 79 03/29/19 20:00 T-piece 5.0 T-piece 5.0 03/29/19 20:00 28 03/29/19 19:35 115 23 100 T-Piece 5.0 03/29/19 19:25 113 23 98 T-Piece 5.0 03/29/19 19:25 98 T-Piece 5.0 03/29/19 19:00 77 20 131/51 (77) 100 03/29/19 18:00 79 20 135/53 (80) 100 03/29/19 17:00 78 21 116/56 (76) 100 03/29/19 16:00 T-piece 5.0 T-piece 5.0 03/29/19 16:00 78 03/29/19 16:00 97.7 78 20 115/45 (68) 100 03/29/19 16:00 28 03/29/19 15:00 80 22 98/48 (65) 98 03/29/19 14:43 76 21 100 T-Piece 5.0 28 73 21 100 03/29/19 14:00 79 23 96/47 (63) 99 03/29/19 13:00 117 24 147/56 (86) 98 03/29/19 12:40 100 T-Piece 5.0 03/29/19 12:00 T-piece 5.0 T-piece 5.0 03/29/19 12:00 76 03/29/19 12:00 97.9 79 20 126/54 (78) 100 03/29/19 12:00 28 Height (Feet): 5 Height (Inches): 4.00 Weight (Pounds): 110 HEENT: status post trach Respiratory/Chest: lungs clear Cardiovascular: normal rate, regular rhythm, no gallop/murmur Abdomen: soft, non tender, other - GT Extremities: no edema, other - right arm PICC Current Medications Medications (Trade) Dose Ordered Sig/Maicol Route PRN Reason Start Time Stop Time Status Last Admin Dose Admin Acetaminophen (Tylenol) 650 mg Q6H PRN GT Mild Pain/Temp > 100.5 03/23/19 15:15 04/22/19 15:14 03/23/19 19:09 Atropine Sulfate (Atropine Opth Adriana) 2 drop TID SL 03/07/19 09:00 04/06/19 08:59 03/30/19 08:56 Bacitracin (Bacitracin 15gm tube) 1 applic THREE TIMES A DAY TOPIC 02/28/19 18:30 03/30/19 18:29 03/30/19 08:56 Chlorhexidine Gluconate (Cesilia-Hex 2%) 1 applic DAILY@1999 TOPIC 03/12/19 20:00 04/11/19 19:59 03/29/19 19:39 Heparin Sodium (Porcine) (Heparin 5000 units/ml) 5,000 units EVERY 12 HOURS SUBQ 03/22/19 21:00 03/31/19 23:14 03/30/19 08:56 Hydralazine HCl (Apresoline) 10 mg Q4H PRN IV For High Blood Pressure 03/12/19 09:00 04/11/19 08:59 03/18/19 18:17 Lansoprazole (Prevacid) 30 mg Q12HR GT 03/29/19 09:00 04/24/19 20:59 03/30/19 08:50 Levetiracetam (Keppra) 750 mg Q12HR GT 03/22/19 21:00 03/31/19 23:29 03/30/19 08:50 Lorazepam (Ativan 2mg/ml 1ml) 0.5 mg Q2H PRN IV For Seizures 03/23/19 15:15 03/30/19 15:14 Metoclopramide HCl (Reglan) 5 mg Q6H IVP 03/24/19 20:00 04/23/19 19:59 03/30/19 08:50 Ondansetron HCl (Zofran) 4 mg Q4H PRN IVP Nausea & Vomiting 03/18/19 18:15 04/17/19 18:14 03/21/19 08:27 Geovany Yang MD Mar 30, 2019 11:01"
--- NOTE | 2019-03-30 11:24 | NUR ---
CASE MANAGEMENT:REVIEW 03/30/19 SI: SEPSIS. PNA. SACRAL DECUB. POD #9.....S/P G TO GJ TUBE 98.7 69 20 127/61 100% ON T-PIECE IS: HEPARIN SQ Q12 KEPPRA GT Q12 ATROPINE SL TID IV REGLAN Q6HRS PREVACID JT Q12 : ICU STATUS PLAN: TRANSFER TO [facility] WHEN BED AVAILABLE
--- NOTE | 2019-03-30 12:00 | NUR ---
NURSE NOTES: Patient vital signs stable at this time. Normal sinus rhythm on the physiological chemist. Patient opens eyes but does not track or follow commands. Patient remains on trach to T-Piece with cool aerosol and 28% FiO2. Patient continues to have copious tracheal secretions. Will continue to monitor. Patient oral/tracheal suctioned and oral care performed at this time. Right upper arm PICC line remains patent, asymptomatic, and saline locked at this time. G tube remains draining to gravity and J tube running tube feeding of glucerna 1.5 at 50mL/hr at this time. Scant residual noted in G tube drainage bag at this time. Purewick remains in place and draining. All wounds covered with dressings dry and intact. Will continue to monitor. Patient bed in low position with bed alarm on and call light in reach at this time. Patient repositioned at this time.
--- NOTE | 2019-03-30 13:50 | Nephrology Progress Note ---
Assessment/Plan Problem List: (1) Acute renal failure (ARF) Assessment: Cr stable (2) Chronic respiratory failure (3) Anemia (4) Sepsis Assessment Acute renal failure Respiratory failure - Trach Low Mag- Low k , Low Na Anemia UTI / Sepsis Proteinuria / HypoAlbuminemia high Trigs Sz decubs bed bound DNR Plan now has JT bolus Albumin as needed K and Mag and Phos supplement as needed Hydrate as needed Urine studies avoid Nephrotoxics mag K Phos supplements as needed monitor renal parameters Subjective ROS Limited/Unobtainable: Yes Objective Objective Last 24 Hour Vital Signs Date Time Temp Pulse Resp B/P (MAP) Pulse Ox O2 Delivery O2 Flow Rate FiO2 03/30/19 13:03 100 T-Piece 5.0 28 03/30/19 13:00 76 16 118/50 (72) 100 03/30/19 12:00 28 03/30/19 12:00 T-piece 5.0 T-piece 5.0 03/30/19 12:00 74 23 133/58 (83) 100 03/30/19 12:00 103 03/30/19 11:00 74 24 141/69 (93) 100 03/30/19 10:00 71 23 137/63 (87) 100 03/30/19 09:00 72 20 145/55 (85) 100 03/30/19 08:00 T-piece 5.0 T-piece 5.0 03/30/19 08:00 71 03/30/19 08:00 98.7 69 20 127/61 (83) 100 03/30/19 08:00 28 03/30/19 07:14 101 18 98 T-Piece 5.0 28 03/30/19 07:14 98 T-Piece 5.0 28 03/30/19 07:13 99 22 100 T-Piece 5.0 28 101 26 100 03/30/19 07:00 69 21 136/65 (88) 100 03/30/19 06:00 68 20 134/57 (82) 100 03/30/19 05:00 74 20 142/54 (83) 100 03/30/19 04:00 T-piece 5.0 T-piece 5.0 03/30/19 04:00 98.6 93 21 127/50 (75) 100 03/30/19 04:00 28 03/30/19 04:00 93 03/30/19 03:26 100 20 100 T-Piece 5.0 28 03/30/19 03:16 102 17 100 T-Piece 5.0 28 03/30/19 03:00 68 20 102/43 (62) 100 03/30/19 02:00 67 20 99/55 (70) 100 03/30/19 01:34 100 T-Piece 5.0 28 03/30/19 01:00 71 21 100/47 (64) 100 03/30/19 00:00 T-piece 5.0 T-piece 5.0 03/30/19 00:00 28 03/30/19 00:00 98.4 77 22 109/48 (68) 100 03/30/19 00:00 77 03/29/19 23:17 79 23 100 T-Piece 5.0 28 03/29/19 23:07 76 18 100 T-Piece 5.0 28 03/29/19 23:00 75 23 132/57 (82) 100 03/29/19 22:00 78 22 118/45 (69) 100 03/29/19 21:00 116 20 148/55 (86) 96 03/29/19 20:00 98.4 79 20 130/55 (80) 100 03/29/19 20:00 79 03/29/19 20:00 T-piece 5.0 T-piece 5.0 03/29/19 20:00 03/29/19 19:35 115 23 100 T-Piece 5.0 03/29/19 19:25 113 23 98 T-Piece 5.0 03/29/19 19:25 98 T-Piece 5.0 03/29/19 19:00 77 20 131/51 (77) 100 03/29/19 18:00 79 20 135/53 (80) 100 03/29/19 17:00 78 21 116/56 (76) 100 03/29/19 16:00 T-piece 5.0 T-piece 5.0 03/29/19 16:00 78 03/29/19 16:00 97.7 78 20 115/45 (68) 100 03/29/19 16:00 28 03/29/19 15:00 80 22 98/48 (65) 98 03/29/19 14:43 76 21 100 T-Piece 5.0 28 73 21 100 03/29/19 14:00 79 23 96/47 (63) 99 Intake and Output 03/29/19 03/30/19 19:00 07:00 Intake Total 900 ml 900 ml Output Total 380 ml 440 ml Balance 520 ml 460 ml Free Water 120 ml 120 ml Tube Feeding 600 ml 600 ml Other 180 ml 180 ml Output Urine Total 280 ml 380 ml Gastric Drainage Total 100 ml 60 ml # Voids 1 # Bowel Movements 1 Height (Feet): 5 Height (Inches): 4.00 Weight (Pounds): 110 EENT: other - trach to O2 Cardiovascular: normal rate Respiratory/Chest: decreased breath sounds Abdomen: soft Objective no change Eric Cortez MD Mar 30, 2019 13:50
--- NOTE | 2019-03-30 14:00 | NUR ---
NURSE NOTES: Patient vital signs stable. Will continue to monitor. Oral and tracheal suction done. Repositioning done.
--- NOTE | 2019-03-30 15:30 | NUR ---
NURSE NOTES: Called Dr Moffett at 1515 and received notification that Dr Chan is covering for him today for this patient. Called Dr Chan at 1530 and left message asking if we can renew Duo-Neb respiratory treatment order. Awaiting call back. Addendum: 03/30/19 at 1838 by Gisselle Perez RN Received call back from Dr Chan at 1535. Received order to resume Duo-Neb respiratory treatment every 4 hours. Order read back, verified, and placed at this time.
[2019-03-30] MEDS ORDERED: Albuterol/Ipratropium 3ml neb HHN SCH ×2 (15:45→15:55)
--- NOTE | 2019-03-30 16:00 | NUR ---
NURSE NOTES: Patient vital signs stable at this time. Normal sinus rhythm on the monitoring analyst. Patient opens eyes but does not track or follow commands. Patient remains on trach to T-Piece with cool aerosol and 28% FiO2. Patient continues to have copious tracheal secretions. Will continue to monitor. Patient oral/tracheal suctioned and oral care performed at this time. Right upper arm PICC line remains patent, asymptomatic, and saline locked at this time. G tube remains draining to gravity and J tube running tube feeding of glucerna 1.5 at 50mL/hr at this time. Scant residual noted in G tube drainage bag at this time. Purewick remains in place and draining. All wounds covered with dressings dry and intact. Will continue to monitor. Patient bed in low position with bed alarm on and call light in reach at this time. Patient repositioned and bed bath done at this time.
--- NOTE | 2019-03-30 16:19 | Surgery Progress Note ---
Surgery Progress Note Subjective Additional Comments stable tolerating feeds no residual via g tolerating via j Objective Last 24 Hour Vital Signs Date Time Temp Pulse Resp B/P (MAP) Pulse Ox O2 Delivery O2 Flow Rate FiO2 03/30/19 15:00 78 23 133/70 (91) 100 03/30/19 14:00 69 21 119/44 (69) 100 03/30/19 13:03 100 T-Piece 5.0 28 03/30/19 13:00 76 16 118/50 (72) 100 03/30/19 12:00 28 03/30/19 12:00 T-piece 5.0 T-piece 5.0 03/30/19 12:00 74 23 133/58 (83) 100 03/30/19 12:00 103 03/30/19 12:00 98.7 74 23 133/58 (83) 100 03/30/19 11:00 74 24 141/69 (93) 100 03/30/19 10:00 71 23 137/63 (87) 100 03/30/19 09:00 72 20 145/55 (85) 100 03/30/19 08:00 T-piece 5.0 T-piece 5.0 03/30/19 08:00 71 03/30/19 08:00 98.7 69 20 127/61 (83) 100 03/30/19 08:00 28 03/30/19 07:14 101 18 98 T-Piece 5.0 28 03/30/19 07:14 98 T-Piece 5.0 28 03/30/19 07:13 99 22 100 T-Piece 5.0 28 101 26 100 03/30/19 07:00 69 21 136/65 (88) 100 03/30/19 06:00 68 20 134/57 (82) 100 03/30/19 05:00 74 20 142/54 (83) 100 03/30/19 04:00 T-piece 5.0 T-piece 5.0 03/30/19 04:00 98.6 93 21 127/50 (75) 100 03/30/19 04:00 28 03/30/19 04:00 93 03/30/19 03:26 100 20 100 T-Piece 5.0 28 03/30/19 03:16 102 17 100 T-Piece 5.0 28 03/30/19 03:00 68 20 102/43 (62) 100 03/30/19 02:00 67 20 99/55 (70) 100 03/30/19 01:34 100 T-Piece 5.0 28 03/30/19 01:00 71 21 100/47 (64) 100 03/30/19 00:00 T-piece 5.0 T-piece 5.0 03/30/19 00:00 28 03/30/19 00:00 98.4 77 22 109/48 (68) 100 03/30/19 00:00 77 03/29/19 23:17 79 23 100 T-Piece 5.0 28 03/29/19 23:07 76 18 100 T-Piece 5.0 28 03/29/19 23:00 75 23 132/57 (82) 100 03/29/19 22:00 78 22 118/45 (69) 100 03/29/19 21:00 116 20 148/55 (86) 96 03/29/19 20:00 98.4 79 20 130/55 (80) 100 03/29/19 20:00 79 03/29/19 20:00 T-piece 5.0 T-piece 5.0 03/29/19 20:00 28 03/29/19 19:35 115 23 100 T-Piece 5.0 03/29/19 19:25 113 23 98 T-Piece 5.0 03/29/19 19:25 98 T-Piece 5.0 28 03/29/19 19:00 77 20 131/51 (77) 100 03/29/19 18:00 79 20 135/53 (80) 100 03/29/19 17:00 78 21 116/56 (76) 100 I&O Intake and Output 03/29/19 03/30/19 19:00 07:00 Intake Total 900 ml 900 ml Output Total 380 ml 440 ml Balance 520 ml 460 ml Free Water 120 ml 120 ml Tube Feeding 600 ml 600 ml Other 180 ml 180 ml Output Urine Total 280 ml 380 ml Gastric Drainage Total 100 ml 60 ml # Voids 1 # Bowel Movements 1 Dressing: other Wound: other Drains: other Cardiovascular: RSR Respiratory: decreased breath sounds Abdomen: soft, present bowel sounds, non-distended Extremities: no cyanosis, other Plan Problems: (1) Sacral decubitus ulcer Assessment & Plan: This is a 83-year-old female with multiple medical committees that is currently admitted for medical care and management and identified to have multiple wounds requiring care. On admission patient noted to have a resolved sacral decubitus ulcer. Has had prior care and is well-healed at this time. Will ensure it does not open up again. Patient has a right ischial decubitus ulcer that is resolved. Scar intact and well formed. Will monitor to ensure it does not open up again. Patient has a left ischial decubitus ulcer that can be identified to be stage IV with palpable bone that has been resolving as noted by the periwound tissue and scar but open area approximately 1 cm x 1.5 cm few millimeters deep to bone identified. Unsure if this is been to be completely healed prior and has since opened or if has been healing at this level. No foul odor no drainage was unsure local wound care until healed Bilateral heels soft without signs of injury Resolving pressure injury L ischium(L)1.8cm x (W)1cm.Scattered biofilm at base of wound. Edges flat and adherent with surrounding hyperpigmentation. No odor or exudate noted. Sacrum is pale pink with surrounding hyperpigmentation. Hyperpigmentation R ischium with small sheared area centrally.No areas of erythema or exudate noted. Both heels are soft but blanchable. Skin Assessed under collar of trach and no evidence of skin breakdown noted. All wound Tx. are effective and continued as ordered. Pt ahs an APM/Belén mattress overlay and is being repositioned per protocols and per tolerance.No new skin concerns noted. Full thickness pressure injury L Ischium with small amt biofilm (L)1.8cm x (W) 1cm. Surrounding pink hyperpigmentation. No odor or exudate noted. Spearman hyperpigmentation from previous wound noted to sacrum. Pt also noted to have Cat 2 Skin Tear dorsal L hand, L 5th metatarsal extending into palm of hand. 80% skin flap in situ.Both heels are dry firm and blanchable. No other skin concerns noted. R ischial wound has resolved. Spearman epithelial with surrounding hyperpigmentation. from historical wound. Full thickness pressure injury L ischium. Spearman granulation at base of wound. Borders are macerated with Surrounding hyperpigmentation.Small amt non-odorous serous exudate noted.(L)0.7cm x (W)0.8cm. Skin hyperpigmentation from historical wound noted to Sacrum. Small sheared area noted to sacrococcygeal area.(L)0.4cm x (W)0.3cm.Small amt sanguineous exudate noted. Reabsorbed blister with semi-detached dry necrotic cap noted to web space of L thumb and L index fingers extending into palm of L hand. No odor or exudate noted. Skin assessed under tracheal collar and no erythema or evidence of Skin Breakdown noted. NO new skin concerns noted . Good hand hygiene provided to both hands. R hand contracted and fisted. Fingernails trimmed. Wound care provided along with Primary nurse. Wound Tx continued as ordered. New order obtained from to apply Betadine to wound L hand Daily. Tx done as ordered. L hand wrapped with kerlix weaving kerlix between fingers to separate fingers. Moisture Barrier applied to sacrum ,R ischium. Each site covered with Optifoam drsg. Both lower ext washed and moisturized. Cavilon Skin Barrier applied to both heels.Each heel covered with Optifoam drsgs. Pt positioned with pillows and both heels off-loaded with pillow. Tx.Plan: Apply Betadine to wound L hand. Cover with Gauze and wrap with Kerlix Daily and prn. Cleanse L ischial wound with Saline. Apply Therahoney. Apply Moisture Barrier periwound. Cover with Optifoam drsgevery 3 days and prn. Apply Moisture Barrier Paste to R ischium and Sacrum. Cover each area with Optifoam drsg. Change every 3 days and prn. Apply Cavilon Skin Barrier to both heels. Cover each heel with Optifoam drsg. Change every 7 days and prn. APM/BELÉN Mattress overlay. Reposition at least every 2hours or as tolerated. Off-load heels with pillow. Cleanse Blister Dorsal and palm of L hand with saline. Versatel One Silicone Contact Layer(Applied). Apply Silvasorb Gel. Wrap with Kerlix Gauze.Change every 7 days and prn. Apply Moisture Barrier to sacrum. Cover with Optifoam drsg. Change every 3 days and prn. Cleanse L ischial wound with saline. Apply Therahoney. Apply Moisture Barrier Paste periwound. Cover with Optifoam drsg. Change every 3 days and prn. Apply Cavilon Skin Barrier to both heels. Cover each heel with Optifoam drsg. Change every 7 days and prn. APM/BELÉN Mattress overlay. Reposition at least every 2hours or as tolerated. Off-load heels with pillow. Nutritional optimization We will monitor follow with recommendations cont with above upon d/c (2) Sepsis Assessment & Plan: IV abx as per ID trend labs improving wounds unlikely etiology likely respiratory imaging noted and okay abnormal lft's stable PICC on Abx in ICU for desaturation CXR with consolidation cont with frequent suctioning d/c planning possible placement found Evidence of left lower lobe pneumonia, also previously demonstrated Gastrostomy in good position Mild diastasis of the rectus abdominis musculature again demonstrated Retrosacral decubitus changes, better depicted on prior exam which included the pelvis Small hiatal hernia with evidence of trace gastroesophageal reflux Discussed with GI. Recommend GJ family still pending decision (3) Feeding by G-tube Assessment & Plan: DAILY ESTIMATED NEEDS: Needs based on Pulmonary, wounds, bedbound/ 61kg adj 25-30 kcals/kg 3590-5595 total kcals 1.25-2 g protein/kg 76-122 g total protein 25-30 mL/kg 4833-7334 total fluid mLs NUTRITION DIAGNOSIS: * Increased kcal/prot needs R/T wound healing as evidenced by BL buttocks and sacral wound photos, refer to WC eval. * Swallowing difficulty R/T respiratory status as evidenced by pt on T-collar, now back the vent, PEG dep. CURRENT TF:Glucerna 1.5 @ 25ml/hr x 24 hrs - currently HELD d/t emesis ENTERAL NUTRITION RECOMMENDATIONS: Glucerna 1.5 @ 45ml/hr x 24 hrs to provide 1080ml, 1620kcal, 89g prot, 820ml free water - As medically able, rec to increase goal rate to 45ml/hr x24 hrs to meet 100% est kcal/prot needs - HOB over 30 degrees - Water flush of 170ml q 6 hrs * W/ continued regurgitation/ emesis, rec Osmolite 1.5 for GI tolerance. Rec goal of 45ml/hr to provide: 1080ml, 1620 kcal, 68g pro, 823ml free H20. * Add Prosource 1 pack daily to provide additional 11g pro. ADDITIONAL RECOMMENDATIONS: 1) Weekly weights 2) Wound healing: Add Cristian 1pkt BID w/ good TF tolerance + MVI x1 daily 3) Monitor lytes, replete as needed 4) Monitor BGs closely, need for NISS (wnl) 5) Monitor TF tolerance: rec Tf change as above if not (4) Chronic vegetative state Assessment & Plan: incontinence of urine and stool. can soil dressings. nurses doing great job with monitoring and changing prn (5) Leukocytosis Walter Madera Mar 30, 2019 16:19
--- NOTE | 2019-03-30 18:00 | NUR ---
NURSE NOTES: Patient vital signs stable. Will continue to monitor. Oral and tracheal suction done. Repositioning done.
--- NOTE | 2019-03-30 19:22 | NUR ---
HAND-OFF: Report given to JEANNINE Sykes. Patient vital signs stable at this time. Will continue to monitor.
--- NOTE | 2019-03-30 19:45 | NUR ---
NURSE NOTES: LE: PATIENT ASLEEP STATUS, OPEN EYES TO NAME, ID NOT FOLLOW COMMANDS, RESPIRATION REGULAR, ON TRACH, FIO2 28% COOL AEROSOL T- PIECE, O2 SATURATION 100% NOTED, HEART RATE 80'S/MIN SINUS RHYTHM, ABDOMEN SOFT, NO BM STATUS, G-J TUBE INTACT AND PATENT, G TUBE DRAINING GRAVITY, ONGOING J TUBE FEEDING, GLUCERNA 1.5 AT 50ML/HR, TOLERATED FEEDING, NO N/V NOTED, KEPT HOB 30 DEGREES AND ASPIRATION PRECAUTION, VOID WITH PURE WICK, YELLOW URINE OUTED, PICC LINE TO RIGHT UPPER ARM, INTACT AND PATENT, KEPT SZ AND FALL PRECAUTION, ON P200 BED, MADE LOWER BED POSITION, ON BED ALARM AND LOCKED, PROVIDED CALL LIGHT WITHIN REACH BUT UNABLE TO USE STATUS, WILL CONTINUE TO MONITOR.
[2019-03-30] MEDS: Dyna-Hex 2% Top Sol 2oz TOPIC SCH (19:49)
--- NOTE | 2019-03-30 21:38 | NUR ---
NURSE NOTES: SUCTIONED VIA TRACH AND ORAL CARE WAS DONE, NO PAIN OR SOB NOTED AT THIS TIME.
--- NOTE | 2019-03-30 23:00 | NUR ---
NURSE NOTES: LE: NO PAIN OR SOB NOTED, J TUBE FEEDING TOLERATED, KEPT HOB 30 DEGREES.
[2019-03-31] VITALS (25 sets, daily range): BP systolic 90–129; BP diastolic 44–114
[2019-03-31] MEDS: Albuterol/Ipratropium 3ml neb HHN SCH ×7 (00:56→23:32)
--- NOTE | 2019-03-31 01:02 | NUR ---
NURSE NOTES: PATIENT ASLEEP STATUS, NO DISTRESS NOTED AT THIS TIME.
--- NOTE | 2019-03-31 03:21 | NUR ---
NURSE NOTES: PATIENT SLEEPING STATUS, NO PAIN OR DISTRESS NOTED AT THIS TIME.
[2019-03-31] MEDS: Metoclopramide 10mg/2ml Inj IVP SCH ×4 (03:27→20:47)
--- NOTE | 2019-03-31 05:18 | NUR ---
NURSE NOTES: MORNING CARE AND ORAL CARE WAS DONE, NO BM STATUS.
--- NOTE | 2019-03-31 06:27 | NUR ---
NURSE NOTES: NO ACUTE DISTRESS NOTED AT THIS SHIFT.
--- NOTE | 2019-03-31 07:05 | NUR ---
HAND-OFF: Report given to Eddie BALLARD RN.
--- NOTE | 2019-03-31 07:06 | NUR ---
NURSE NOTES: Received patient from JEANNINE Sykes. Patient vital signs stable at this time with no sign of acute distress. Patient opens eyes and does not track. Patient on trach to T-piece with 28% FiO2. Patient has copious secretions. Patient oral and tracheal suctioned. Patient has gastrostomy and jejunostomy tube. Both patent and flushed at this time. G tube is set to drain to gravity and J tube is running glucerna 1.5 tube feeding at 50mL/hr. Patient tolerating feeding with no residual. Patient has a right upper arm PICC line that is patent, asymptomatic, and saline locked at this time. Dressing intact. Patient has purewick that is patent and functional with straw yellow urine in the suction canister. Patient has sacral heeled wounds with dressing intact. Patient has left hand necrotic wound with dressing intact and dry. Patient has no labs ordered for this morning. WIll ask Dr Beltrán if he wants labs taken when he rounds on the patient. Patient repositioned at this time. bed in low position, alarm on and call light in reach at this time.
--- NOTE | 2019-03-31 08:39 | General Progress Note ---
Assessment/Plan Problem List: (1) Seizure ICD Codes: R56.9 - Unspecified convulsions SNOMED: 61324007 (2) Anemia ICD Codes: D64.9 - Anemia, unspecified SNOMED: 217948651 Qualifiers: Qualified Codes: D64.9 - Anemia, unspecified (3) Sepsis ICD Codes: A41.9 - Sepsis, unspecified organism SNOMED: 33693805, 279055269 Qualifiers: Qualified Codes: A41.9 - Sepsis, unspecified organism (4) Respiratory failure with hypoxia ICD Codes: J96.91 - Respiratory failure, unspecified with hypoxia SNOMED: 84020071035090990 Qualifiers: Qualified Codes: J96.21 - Acute and chronic respiratory failure with hypoxia (5) HCAP (healthcare-associated pneumonia) ICD Codes: J18.9 - Pneumonia, unspecified organism SNOMED: 544831691, 310984945 (6) Sacral decubitus ulcer ICD Codes: L89.159 - Pressure ulcer of sacral region, unspecified stage SNOMED: 969653628 (7) HTN (hypertension) ICD Codes: I10 - Essential (primary) hypertension SNOMED: 89439872 (8) Chronic vegetative state ICD Codes: R40.3 - Persistent vegetative state SNOMED: 88384004 (9) Chronic respiratory failure ICD Codes: J96.10 - Chronic respiratory failure, unspecified whether with hypoxia or hypercapnia SNOMED: 80960124 (10) Limited mobility ICD Codes: Z74.09 - Other reduced mobility SNOMED: 4495786 Status: stable, progressing Assessment/Plan: vent as needed resp rx suctioning j tube feeds g port to gracvity skin care sz rx monitor h/h dc planning Subjective ROS Limited/Unobtainable: Yes Constitutional: Reports: malaise, weakness HEENT: Reports: no symptoms Cardiovascular: Reports: no symptoms Respiratory: Reports: cough, sputum Gastrointestinal/Abdominal: Reports: difficulty swallowing Allergies: Coded Allergies: CODEINE (Verified Allergy, Unknown, HIVES, 09/15/09) Subjective no events. stable on the vent, tolerating feeds, no fevers. no szs. Objective Last 24 Hour Vital Signs Date Time Temp Pulse Resp B/P (MAP) Pulse Ox O2 Delivery O2 Flow Rate FiO2 03/31/19 07:57 98 20 99 T-Piece 5.0 28 92 20 100 03/31/19 07:16 100 T-Piece 5.0 28 03/31/19 07:00 73 23 129/62 (84) 100 03/31/19 06:00 79 23 116/49 (71) 100 03/31/19 05:00 74 21 106/82 (90) 100 03/31/19 04:00 T-piece 5.0 T-piece 5.0 03/31/19 04:00 28 03/31/19 04:00 98.4 80 22 125/50 (75) 100 03/31/19 03:50 76 03/31/19 03:24 102 22 99 T-Piece 5.0 28 94 20 100 03/31/19 03:00 73 21 107/52 (70) 100 03/31/19 02:14 85 22 124/56 (78) 100 03/31/19 02:00 78 22 90/51 (64) 100 03/31/19 01:26 99 T-Piece 5.0 28 03/31/19 01:00 74 23 98/44 (62) 100 03/31/19 00:02 93 22 100 T-Piece 5.0 28 91 20 100 03/31/19 00:00 70 03/31/19 00:00 T-piece 5.0 T-piece 5.0 03/31/19 00:00 28 03/31/19 00:00 98.4 70 21 127/55 (79) 100 03/30/19 23:00 71 19 118/60 (79) 100 03/30/19 22:00 72 20 104/47 (66) 100 03/30/19 21:00 66 21 119/52 (74) 100 03/30/19 20:00 T-piece 5.0 T-piece 5.0 03/30/19 20:00 73 03/30/19 20:00 28 03/30/19 20:00 98.3 73 20 96/52 (67) 100 03/30/19 19:00 75 21 119/50 (73) 100 03/30/19 18:50 100 T-Piece 5.0 28 03/30/19 18:50 93 22 100 T-Piece 5.0 28 94 20 100 03/30/19 18:00 72 21 136/52 (80) 100 03/30/19 17:23 93 22 100 T-Piece 5.0 28 90 20 100 12/30/19 17:00 78 18 126/65 (85) 99 03/30/19 16:00 T-piece 5.0 T-piece 5.0 03/30/19 16:00 28 03/30/19 16:00 98.7 67 22 130/47 (74) 100 03/30/19 16:00 73 03/30/19 15:00 78 23 133/70 (91) 100 03/30/19 14:00 69 21 119/44 (69) 100 03/30/19 13:03 100 T-Piece 5.0 28 03/30/19 13:00 76 16 118/50 (72) 100 03/30/19 12:00 28 03/30/19 12:00 T-piece 5.0 T-piece 5.0 03/30/19 12:00 74 23 133/58 (83) 100 03/30/19 12:00 103 03/30/19 12:00 98.7 74 23 133/58 (83) 100 03/30/19 11:00 74 24 141/69 (93) 100 03/30/19 10:00 71 23 137/63 (87) 100 03/30/19 09:00 72 20 145/55 (85) 100 Intake and Output 03/30/19 03/31/19 19:00 07:00 Intake Total 900 ml 900 ml Output Total 450 ml 480 ml Balance 450 ml 420 ml Free Water 180 ml 120 ml Tube Feeding 600 ml 600 ml Other 120 ml 180 ml Output Urine Total 330 ml 400 ml Gastric Drainage Total 120 ml 80 ml Height (Feet): 5 Height (Inches): 4.00 Weight (Pounds): 111 Objective General Appearance: WD/WN, confused. on trach collar Neck: supple Cardiovascular: normal rate, regular rhythm Respiratory/Chest: chest wall non-tender, rhonchi - bilaterally(minimal) Abdomen: normal bowel sounds, non tender, soft, no organomegaly Edema: no edema noted Arm (L), no edema noted Arm (R), no edema noted Leg (L), no edema noted Leg (R), no edema noted Pedal (L), no edema noted Pedal (R), no edema noted Generalized Neurologic: disoriented, unresponsive, aphasia Irvin Beltrán MD Mar 31, 2019 08:38
[2019-03-31] MEDS: levETIRAcetam 500mg/5ml Liquid GT SCH ×2 (08:55→20:49)
[2019-03-31] MEDS: Heparin 5000 units/ml inj SUBQ SCH ×2 (09:04→20:54)
--- NOTE | 2019-03-31 09:17 | Pulmonology Progress Note ---
Assessment/Plan Assessment/Plan Impression: history of Sepsis history of Pneumonia Trach, G tube, Hypertension, Cardiac disease, Dementia, Previous CVA, Seizure disorder, Respiratory failure with hypoxia Anemia, Sacral ulcer renal cyst chronic pulmonary congestion Plan respiratory care reviewed neb therapy to continue off vent and monitor oxygen as needed Monitor labs and protein levels aspiration precautions as is polymicrobial infection noted Patient is a DNR. No CPR. ICU care reviewed hope to transfer to [place] medications/laboratory data/nursing notes/ICU care reviewed in detail note reviewed and edited care discussed with RN and RT ICU time spent 35 minutes Subjective ROS Limited/Unobtainable: Yes Allergies: Coded Allergies: CODEINE (Verified Allergy, Unknown, HIVES, 09/15/09) Subjective respiratory care reviewed events noted overnight ICU care reviewed still requires suctioning and RT care bed bound and obtunded family refusing transfer off vent findings reviewed and discussed ; imaging noted Objective Last 24 Hour Vital Signs Date Time Temp Pulse Resp B/P (MAP) Pulse Ox O2 Delivery O2 Flow Rate FiO2 03/31/19 07:57 98 20 99 T-Piece 5.0 28 92 20 100 03/31/19 07:16 100 T-Piece 5.0 28 03/31/19 07:00 73 23 129/62 (84) 100 03/31/19 06:00 79 23 116/49 (71) 100 03/31/19 05:00 74 21 106/82 (90) 100 03/31/19 04:00 T-piece 5.0 T-piece 5.0 03/31/19 04:00 28 03/31/19 04:00 98.4 80 22 125/50 (75) 100 03/31/19 03:50 76 03/31/19 03:24 102 22 99 T-Piece 5.0 28 94 20 100 03/31/19 03:00 73 21 107/52 (70) 100 03/31/19 02:14 85 22 124/56 (78) 100 03/31/19 02:00 78 22 90/51 (64) 100 03/31/19 01:26 99 T-Piece 5.0 28 03/31/19 01:00 74 23 98/44 (62) 100 03/31/19 00:02 93 22 100 T-Piece 5.0 28 91 20 100 03/31/19 00:00 70 03/31/19 00:00 T-piece 5.0 T-piece 5.0 03/31/19 00:00 28 03/31/19 00:00 98.4 70 21 127/55 (79) 100 03/30/19 23:00 71 19 118/60 (79) 100 03/30/19 22:00 72 20 104/47 (66) 100 03/30/19 21:00 66 21 119/52 (74) 100 03/30/19 20:00 T-piece 5.0 T-piece 5.0 03/30/19 20:00 73 03/30/19 20:00 28 03/30/19 20:00 98.3 73 20 96/52 (67) 100 03/30/19 19:00 75 21 119/50 (73) 100 03/30/19 18:50 100 T-Piece 5.0 28 03/30/19 18:50 93 22 100 T-Piece 5.0 28 94 20 100 03/30/19 18:00 72 21 136/52 (80) 100 03/30/19 17:23 93 22 100 T-Piece 5.0 28 90 20 100 03/30/19 17:00 78 18 126/65 (85) 99 03/30/19 16:00 T-piece 5.0 T-piece 5.0 03/30/19 16:00 28 03/30/19 16:00 98.7 67 22 130/47 (74) 100 03/30/19 16:00 73 03/30/19 15:00 78 23 133/70 (91) 100 03/30/19 14:00 69 21 119/44 (69) 100 03/30/19 13:03 100 T-Piece 5.0 28 03/30/19 13:00 76 16 118/50 (72) 100 03/30/19 12:00 28 03/30/19 12:00 T-piece 5.0 T-piece 5.0 03/30/19 12:00 74 23 133/58 (83) 100 03/30/19 12:00 103 03/30/19 12:00 98.7 74 23 133/58 (83) 100 03/30/19 11:00 74 24 141/69 (93) 100 03/30/19 10:00 71 23 137/63 (87) 100 Intake and Output 03/30/19 03/31/19 19:00 07:00 Intake Total 900 ml 900 ml Output Total 450 ml 480 ml Balance 450 ml 420 ml Free Water 180 ml 120 ml Tube Feeding 600 ml 600 ml Other 120 ml 180 ml Output Urine Total 330 ml 400 ml Gastric Drainage Total 120 ml 80 ml Objective WDWN NAD contracted off vent reduced breath sounds bilaterally with some rhonchi [id number] without MRG NABS nontender no HSM no CC trace edema nonfocal nonverbal trach and gt reviewed and edited Current Medications Medications (Trade) Dose Ordered Sig/Maicol Route PRN Reason Start Time Stop Time Status Last Admin Dose Admin Acetaminophen (Tylenol) 650 mg Q6H PRN GT Mild Pain/Temp > 100.5 03/23/19 15:15 04/22/19 15:14 03/23/19 19:09 Albuterol/ Ipratropium (Albuterol/ Ipratropium) 3 ml Q4HRT HHN 03/30/19 19:00 04/04/19 18:59 03/31/19 07:15 Atropine Sulfate (Atropine Opth Adriana) 2 drop TID SL 03/07/19 09:00 04/06/19 08:59 03/31/19 08:56 Chlorhexidine Gluconate (Cesilia-Hex 2%) 1 applic DAILY@1999 TOPIC 03/12/19 20:00 04/11/19 19:59 03/30/19 19:49 Heparin Sodium (Porcine) (Heparin 5000 units/ml) 5,000 units EVERY 12 HOURS SUBQ 03/22/19 21:00 03/31/19 23:14 03/31/19 09:04 Hydralazine HCl (Apresoline) 10 mg Q4H PRN IV For High Blood Pressure 03/12/19 09:00 04/11/19 08:59 03/18/19 18:17 Lansoprazole (Prevacid) 30 mg Q12HR GT 03/29/19 09:00 04/24/19 20:59 03/31/19 08:55 Levetiracetam (Keppra) 750 mg Q12HR GT 03/22/19 21:00 03/31/19 23:29 03/31/19 08:55 Metoclopramide HCl (Reglan) 5 mg Q6H IVP 03/24/19 20:00 04/23/19 19:59 03/31/19 07:59 Ondansetron HCl (Zofran) 4 mg Q4H PRN IVP Nausea & Vomiting 03/18/19 18:15 04/17/19 18:14 03/21/19 08:27 Amaury Chan MD Mar 31, 2019 09:17
[2019-03-31 10:00] LABS: BASOPHILS % (AUTO) 0.8 % (0.0-2.0); HEMATOCRIT 26.9 % (37.0-47.0); HEMOGLOBIN 8.7 G/DL (12.0-16.0); LYMPHOCYTES % (AUTO) 33.5 % (20.0-45.0); MEAN CORPUSCULAR VOLUME 88 FL (80-99); MONOCYTES % (AUTO) 5.8 % (1.0-10.0); PLATELET COUNT 230 K/UL (150-450); RED BLOOD COUNT 3.04 M/UL (4.20-5.40); RED CELL DISTRIBUTION WIDTH 16.6 % (11.6-14.8); WHITE BLOOD COUNT 8.1 K/UL (4.8-10.8)
[2019-03-31 10:03] LABS: ALANINE AMINOTRANSFERASE 31 U/L (12-78); ALBUMIN/GLOBULIN RATIO 0.6 (1.0-2.7); ALKALINE PHOSPHATASE 132 U/L (46-116); ANION GAP 5 mmol/L (5-15); ASPARTATE AMINO TRANSFERASE 17 U/L (15-37); BILIRUBIN,TOTAL 0.1 MG/DL (0.2-1.0); BLOOD UREA NITROGEN 49 mg/dL (7-18); CALCIUM 8.9 MG/DL (8.5-10.1); CARBON DIOXIDE 32 MMOL/L (21-32); CHLORIDE 109 MMOL/L (98-107); POTASSIUM 4.8 MMOL/L (3.5-5.1); SODIUM 146 MMOL/L (136-145)
--- NOTE | 2019-03-31 10:12 | Nephrology Progress Note ---
Assessment/Plan Problem List: (1) Acute renal failure (ARF) Assessment: Cr stable (2) Chronic respiratory failure (3) Anemia (4) Sepsis Assessment Acute renal failure Respiratory failure - Trach Low Mag- Low k , Low Na Anemia UTI / Sepsis Proteinuria / HypoAlbuminemia high Trigs Sz decubs bed bound DNR Plan now has JT bolus Albumin as needed K and Mag and Phos supplement as needed Hydrate as needed Urine studies avoid Nephrotoxics mag K Phos supplements as needed monitor renal parameters Subjective ROS Limited/Unobtainable: Yes Constitutional: Reports: malaise Objective Objective Last 24 Hour Vital Signs Date Time Temp Pulse Resp B/P (MAP) Pulse Ox O2 Delivery O2 Flow Rate FiO2 03/31/19 09:00 77 19 123/56 (78) 100 03/31/19 08:00 T-piece 5.0 T-piece 5.0 03/31/19 08:00 98.6 76 21 122/47 (72) 100 03/31/19 08:00 28 03/31/19 07:57 98 20 99 T-Piece 5.0 28 92 20 100 03/31/19 07:16 100 T-Piece 5.0 28 03/31/19 07:00 73 23 129/62 (84) 100 03/31/19 06:00 79 23 116/49 (71) 100 03/31/19 05:00 74 21 106/82 (90) 100 03/31/19 04:00 T-piece 5.0 T-piece 5.0 03/31/19 04:00 28 03/31/19 04:00 98.4 80 22 125/50 (75) 100 03/31/19 03:50 76 03/31/19 03:24 102 22 99 T-Piece 5.0 28 94 20 100 03/31/19 03:00 73 21 107/52 (70) 100 03/31/19 02:14 85 22 124/56 (78) 100 03/31/19 02:00 78 22 90/51 (64) 100 03/31/19 01:26 99 T-Piece 5.0 28 03/31/19 01:00 74 23 98/44 (62) 100 03/31/19 00:02 93 22 100 T-Piece 5.0 28 91 20 100 03/31/19 00:00 70 03/31/19 00:00 T-piece 5.0 T-piece 5.0 03/31/19 00:00 28 03/31/19 00:00 98.4 70 21 127/55 (79) 100 03/30/19 23:00 71 19 118/60 (79) 100 03/30/19 22:00 72 20 104/47 (66) 100 03/30/19 21:00 66 21 119/52 (74) 100 03/30/19 20:00 T-piece 5.0 T-piece 5.0 03/30/19 20:00 73 03/30/19 20:00 28 03/30/19 20:00 98.3 73 20 96/52 (67) 100 03/30/19 19:00 75 21 119/50 (73) 100 03/30/19 18:50 100 T-Piece 5.0 28 03/30/19 18:50 93 22 100 T-Piece 5.0 28 94 20 100 03/30/19 18:00 72 21 136/52 (80) 100 03/30/19 17:23 93 22 100 T-Piece 5.0 28 90 20 100 03/30/19 17:00 78 18 126/65 (85) 99 03/30/19 16:00 T-piece 5.0 T-piece 5.0 03/30/19 16:00 28 03/30/19 16:00 98.7 67 22 130/47 (74) 100 03/30/19 16:00 73 03/30/19 15:00 78 23 133/70 (91) 100 03/30/19 14:00 69 21 119/44 (69) 100 03/30/19 13:03 100 T-Piece 5.0 28 03/30/19 13:00 76 16 118/50 (72) 100 03/30/19 12:00 28 03/30/19 12:00 T-piece 5.0 T-piece 5.0 03/30/19 12:00 74 23 133/58 (83) 100 03/30/19 12:00 103 03/30/19 12:00 98.7 74 23 133/58 (83) 100 03/30/19 11:00 74 24 141/69 (93) 100 Intake and Output 03/30/19 03/31/19 19:00 07:00 Intake Total 900 ml 900 ml Output Total 450 ml 480 ml Balance 450 ml 420 ml Free Water 180 ml 120 ml Tube Feeding 600 ml 600 ml Other 120 ml 180 ml Output Urine Total 330 ml 400 ml Gastric Drainage Total 120 ml 80 ml Laboratory Tests 03/31/19 08:50: White Blood Count 8.1, Red Blood Count 3.04L, Hemoglobin 8.7L, Hematocrit 26.9L , Mean Corpuscular Volume 88, Mean Corpuscular Hemoglobin 28.5, Mean Corpuscular Hemoglobin Concent 32.3, Red Cell Distribution Width 16.6H, Platelet Count 230, Mean Platelet Volume 6.4L, Neutrophils (%) (Auto) 54.0, Lymphocytes (%) (Auto) 33.5, Monocytes (%) (Auto) 5.8, Eosinophils (%) (Auto) 6.0H, Basophils (%) (Auto) 0.8, Sodium Level 146H, Potassium Level 4.8, Chloride Level 109H, Carbon Dioxide Level 32, Anion Gap 5, Blood Urea Nitrogen 49H, Creatinine 1.0, Estimat Glomerular Filtration Rate , Glucose Level 114H, Calcium Level 8.9, Total Bilirubin 0.1L, Aspartate Amino Transf (AST/SGOT) 17, Alanine Aminotransferase (ALT/SGPT) 31, Alkaline Phosphatase 132H, Total Protein 8.2, Albumin 3.0L, Globulin 5.2, Albumin/Globulin Ratio 0.6L Height (Feet): 5 Height (Inches): 4.00 Weight (Pounds): 111 General Appearance: no apparent distress Objective no change Eric Cortez MD Mar 31, 2019 10:12
--- NOTE | 2019-03-31 10:24 | NUR ---
RD ASSESSMENT & RECOMMENDATIONS SEE CARE ACTIVITY FOR COMPLETE ASSESSMENT DAILY ESTIMATED NEEDS: Needs based on Pulmonary, wounds, bedbound/ 61kg adj 25-30 kcals/kg 8072-4288 total kcals 1.25-2 g protein/kg 76-122 g total protein 25-30 mL/kg 7254-6919 total fluid mLs NUTRITION DIAGNOSIS: * Increased kcal/prot needs R/T wound healing as evidenced by BL buttocks and sacral wound photos, refer to eval. * Swallowing difficulty R/T respiratory status as evidenced by pt on T-collar, s/p G-J conversion CURRENT TF:Glucerna 1.5 @ 50ml/hr x 24 hrs ENTERAL NUTRITION RECOMMENDATIONS: Glucerna 1.5 @ 50ml/hr x 24 hrs to provide 1200ml, 1800 kcal, 99g pro, 911ml free H2O - Maintain at current rate as tolerated to meet 100% est needs - HOB over 30 degrees - INCREASE water flush of 170ml q 6 hrs ADDITIONAL RECOMMENDATIONS: 1) RE-calibrate bedscale wt: fluctuating daily wts (108#-136# last 6 days) 2) Wound healing: Add Cristian 1pkt BID w/ continued good TF tolerance. 3) Increase water flushes, monitor for signs of water deficits 4) Monitor BGs closely, need for NISS -> now w/ improved BGs 5) Monitor for continued good TF tolerance 6) Monitor K : elev K on 03/25, s/p Kdur BID, now dc'ed.
--- NOTE | 2019-03-31 11:00 | Infectious Diseases Prog Note ---
"Assessment/Plan Assessment/Plan antibiotics : none A 1. klebsiella | providencia pneumonia s/p rx 2. respiratory failure 3. hypertension 4. CVA 5. dementia 6. sacral decubitus ulcer 7. rectal VRE colonization P 1. observe off antibiotics 2. dc planned Subjective ROS Limited/Unobtainable: Yes Allergies: Coded Allergies: CODEINE (Verified Allergy, Unknown, HIVES, 09/15/09) Objective Vital Signs Last 24 Hour Vital Signs Date Time Temp Pulse Resp B/P (MAP) Pulse Ox O2 Delivery O2 Flow Rate FiO2 03/31/19 10:34 83 19 100 T-Piece 5.0 28 78 21 100 03/31/19 09:00 77 19 123/56 (78) 100 03/31/19 08:00 T-piece 5.0 T-piece 5.0 03/31/19 08:00 98.6 76 21 122/47 (72) 100 03/31/19 08:00 28 03/31/19 07:57 98 20 99 T-Piece 5.0 28 92 20 100 03/31/19 07:16 100 T-Piece 5.0 03/31/19 07:00 73 23 129/62 (84) 100 03/31/19 06:00 79 23 116/49 (71) 100 03/31/19 05:00 74 21 106/82 (90) 100 03/31/19 04:00 T-piece 5.0 T-piece 5.0 03/31/19 04:00 28 03/31/19 04:00 98.4 80 22 125/50 (75) 100 03/31/19 03:50 76 03/31/19 03:24 102 22 99 T-Piece 5.0 94 20 100 03/31/19 03:00 73 21 107/52 (70) 100 03/31/19 02:14 85 22 124/56 (78) 100 03/31/19 02:00 78 22 90/51 (64) 100 03/31/19 01:26 99 T-Piece 5.0 28 03/31/19 01:00 74 23 98/44 (62) 100 03/31/19 00:02 93 22 100 T-Piece 5.0 28 91 20 100 03/31/19 00:00 70 03/31/19 00:00 T-piece 5.0 T-piece 5.0 03/31/19 00:00 28 03/31/19 00:00 98.4 70 21 127/55 (79) 100 03/30/19 23:00 71 19 118/60 (79) 100 03/30/19 22:00 72 20 104/47 (66) 100 03/30/19 21:00 66 21 119/52 (74) 100 03/30/19 20:00 T-piece 5.0 T-piece 5.0 03/30/19 20:00 73 03/30/19 20:00 28 03/30/19 20:00 98.3 73 20 96/52 (67) 100 03/30/19 19:00 75 21 119/50 (73) 100 03/30/19 18:50 100 T-Piece 5.0 28 03/30/19 18:50 93 22 100 T-Piece 5.0 28 94 20 100 03/30/19 18:00 72 21 136/52 (80) 100 03/30/19 17:23 93 22 100 T-Piece 5.0 28 90 20 100 03/30/19 17:00 78 18 126/65 (85) 99 03/30/19 16:00 T-piece 5.0 T-piece 5.0 03/30/19 16:00 28 03/30/19 16:00 98.7 67 22 130/47 (74) 100 03/30/19 16:00 73 03/30/19 15:00 78 23 133/70 (91) 100 03/30/19 14:00 69 21 119/44 (69) 100 03/30/19 13:03 100 T-Piece 5.0 28 03/30/19 13:00 76 16 118/50 (72) 100 03/30/19 12:00 28 03/30/19 12:00 T-piece 5.0 T-piece 5.0 03/30/19 12:00 74 23 133/58 (83) 100 03/30/19 12:00 103 03/30/19 12:00 98.7 74 23 133/58 (83) 100 03/30/19 11:00 74 24 141/69 (93) 100 Height (Feet): 5 Height (Inches): 4.00 Weight (Pounds): 111 HEENT: status post trach Respiratory/Chest: lungs clear Cardiovascular: normal rate, regular rhythm, no gallop/murmur Abdomen: soft, non tender, other - Gt Extremities: no edema, other - right arm PICC Laboratory Tests Test 03/31/19 08:50 White Blood Count 8.1 K/UL (4.8-10.8) Red Blood Count 3.04 M/UL (4.20-5.40) L Hemoglobin 8.7 G/DL (12.0-16.0) L Hematocrit 26.9 % (37.0-47.0) L Mean Corpuscular Volume 88 FL (80-99) Mean Corpuscular Hemoglobin 28.5 PG (27.0-31.0) Mean Corpuscular Hemoglobin Concent 32.3 G/DL (32.0-36.0) Red Cell Distribution Width 16.6 % (11.6-14.8) H Platelet Count 230 K/UL (150-450) Mean Platelet Volume 6.4 FL (6.5-10.1) L Neutrophils (%) (Auto) 54.0 % (45.0-75.0) Lymphocytes (%) (Auto) 33.5 % (20.0-45.0) Monocytes (%) (Auto) 5.8 % (1.0-10.0) Eosinophils (%) (Auto) 6.0 % (0.0-3.0) H Basophils (%) (Auto) 0.8 % (0.0-2.0) Sodium Level 146 MMOL/L (136-145) H Potassium Level 4.8 MMOL/L (3.5-5.1) Chloride Level 109 MMOL/L (98-107) H Carbon Dioxide Level 32 MMOL/L (21-32) Anion Gap 5 mmol/L (5-15) Blood Urea Nitrogen 49 mg/dL (7-18) H Creatinine 1.0 MG/DL (0.55-1.30) Estimat Glomerular Filtration Rate mL/min (>60) Glucose Level 114 MG/DL (74-106) H Calcium Level 8.9 MG/DL (8.5-10.1) Total Bilirubin 0.1 MG/DL (0.2-1.0) L Aspartate Amino Transf (AST/SGOT) 17 U/L (15-37) Alanine Aminotransferase (ALT/SGPT) 31 U/L (12-78) Alkaline Phosphatase 132 U/L (46-116) H Total Protein 8.2 G/DL (6.4-8.2) Albumin 3.0 G/DL (3.4-5.0) L Globulin 5.2 g/dL Albumin/Globulin Ratio 0.6 (1.0-2.7) L Current Medications Medications (Trade) Dose Ordered Sig/Maicol Route PRN Reason Start Time Stop Time Status Last Admin Dose Admin Acetaminophen (Tylenol) 650 mg Q6H PRN GT Mild Pain/Temp > 100.5 03/23/19 15:15 04/22/19 15:14 03/23/19 19:09 Albuterol/ Ipratropium (Albuterol/ Ipratropium) 3 ml Q4HRT HHN 03/30/19 19:00 04/04/19 18:59 03/31/19 10:34 Atropine Sulfate (Atropine Opth Adriana) 2 drop TID SL 03/07/19 09:00 04/06/19 08:59 03/31/19 08:56 Chlorhexidine Gluconate (Cesilia-Hex 2%) 1 applic DAILY@1999 TOPIC 03/12/19 20:00 04/11/19 19:59 03/30/19 19:49 Heparin Sodium (Porcine) (Heparin 5000 units/ml) 5,000 units EVERY 12 HOURS SUBQ 03/22/19 21:00 03/31/19 23:14 03/31/19 09:04 Hydralazine HCl (Apresoline) 10 mg Q4H PRN IV For High Blood Pressure 03/12/19 09:00 04/11/19 08:59 03/18/19 18:17 Lansoprazole (Prevacid) 30 mg Q12HR GT 03/29/19 09:00 04/24/19 20:59 03/31/19 08:55 Levetiracetam (Keppra) 750 mg Q12HR GT 03/22/19 21:00 03/31/19 23:29 03/31/19 08:55 Metoclopramide HCl (Reglan) 5 mg Q6H IVP 03/24/19 20:00 04/23/19 19:59 03/31/19 07:59 Ondansetron HCl (Zofran) 4 mg Q4H PRN IVP Nausea & Vomiting 03/18/19 18:15 04/17/19 18:14 03/21/19 08:27 Geovany Yang MD Mar 31, 2019 11:00"
--- NOTE | 2019-03-31 11:51 | Surgery Progress Note ---
Surgery Progress Note Subjective Additional Comments no acute events comfortable Objective Last 24 Hour Vital Signs Date Time Temp Pulse Resp B/P (MAP) Pulse Ox O2 Delivery O2 Flow Rate FiO2 03/31/19 10:34 83 19 100 T-Piece 5.0 28 78 21 100 03/31/19 09:00 77 19 123/56 (78) 100 03/31/19 08:00 T-piece 5.0 T-piece 5.0 03/31/19 08:00 98.6 76 21 122/47 (72) 100 03/31/19 08:00 28 03/31/19 07:57 98 20 99 T-Piece 5.0 28 92 20 100 03/31/19 07:16 100 T-Piece 5.0 28 03/31/19 07:00 73 23 129/62 (84) 100 03/31/19 06:00 79 23 116/49 (71) 100 03/31/19 05:00 74 21 106/82 (90) 100 03/31/19 04:00 T-piece 5.0 T-piece 5.0 03/31/19 04:00 28 03/31/19 04:00 98.4 80 22 125/50 (75) 100 03/31/19 03:50 76 03/31/19 03:24 102 22 99 T-Piece 5.0 28 94 20 100 03/31/19 03:00 73 21 107/52 (70) 100 03/31/19 02:14 85 22 124/56 (78) 100 03/31/19 02:00 78 22 90/51 (64) 100 03/31/19 01:26 99 T-Piece 5.0 28 03/31/19 01:00 74 23 98/44 (62) 100 03/31/19 00:02 93 22 100 T-Piece 5.0 28 91 20 100 03/31/19 00:00 70 03/31/19 00:00 T-piece 5.0 T-piece 5.0 03/31/19 00:00 28 03/31/19 00:00 98.4 70 21 127/55 (79) 100 03/30/19 23:00 71 19 118/60 (79) 100 03/30/19 22:00 72 20 104/47 (66) 100 03/30/19 21:00 66 21 119/52 (74) 100 03/30/19 20:00 T-piece 5.0 T-piece 5.0 03/30/19 20:00 73 03/30/19 20:00 28 03/30/19 20:00 98.3 73 20 96/52 (67) 100 03/30/19 19:00 75 21 119/50 (73) 100 03/30/19 18:50 100 T-Piece 5.0 28 03/30/19 18:50 93 22 100 T-Piece 5.0 28 94 20 100 03/30/19 18:00 72 21 136/52 (80) 100 03/30/19 17:23 93 22 100 T-Piece 5.0 28 90 20 100 03/30/19 17:00 78 18 126/65 (85) 99 03/30/19 16:00 T-piece 5.0 T-piece 5.0 03/30/19 16:00 28 03/30/19 16:00 98.7 67 22 130/47 (74) 100 03/30/19 16:00 73 03/30/19 15:00 78 23 133/70 (91) 100 03/30/19 14:00 69 21 119/44 (69) 100 03/30/19 13:03 100 T-Piece 5.0 28 03/30/19 13:00 76 16 118/50 (72) 100 03/30/19 12:00 28 03/30/19 12:00 T-piece 5.0 T-piece 5.0 03/30/19 12:00 74 23 133/58 (83) 100 03/30/19 12:00 103 03/30/19 12:00 98.7 74 23 133/58 (83) 100 I&O Intake and Output 03/30/19 03/31/19 19:00 07:00 Intake Total 900 ml 900 ml Output Total 450 ml 480 ml Balance 450 ml 420 ml Free Water 180 ml 120 ml Tube Feeding 600 ml 600 ml Other 120 ml 180 ml Output Urine Total 330 ml 400 ml Gastric Drainage Total 120 ml 80 ml Dressing: dry Wound: clean Cardiovascular: RSR Respiratory: clear Abdomen: soft, non-tender, present bowel sounds, non-distended Extremities: no tenderness, no cyanosis Laboratory Tests Test 03/31/19 08:50 White Blood Count 8.1 K/UL (4.8-10.8) Red Blood Count 3.04 M/UL (4.20-5.40) L Hemoglobin 8.7 G/DL (12.0-16.0) L Hematocrit 26.9 % (37.0-47.0) L Mean Corpuscular Volume 88 FL (80-99) Mean Corpuscular Hemoglobin 28.5 PG (27.0-31.0) Mean Corpuscular Hemoglobin Concent 32.3 G/DL (32.0-36.0) Red Cell Distribution Width 16.6 % (11.6-14.8) H Platelet Count 230 K/UL (150-450) Mean Platelet Volume 6.4 FL (6.5-10.1) L Neutrophils (%) (Auto) 54.0 % (45.0-75.0) Lymphocytes (%) (Auto) 33.5 % (20.0-45.0) Monocytes (%) (Auto) 5.8 % (1.0-10.0) Eosinophils (%) (Auto) 6.0 % (0.0-3.0) H Basophils (%) (Auto) 0.8 % (0.0-2.0) Sodium Level 146 MMOL/L (136-145) H Potassium Level 4.8 MMOL/L (3.5-5.1) Chloride Level 109 MMOL/L (98-107) H Carbon Dioxide Level 32 MMOL/L (21-32) Anion Gap 5 mmol/L (5-15) Blood Urea Nitrogen 49 mg/dL (7-18) H Creatinine 1.0 MG/DL (0.55-1.30) Estimat Glomerular Filtration Rate mL/min (>60) Glucose Level 114 MG/DL (74-106) H Calcium Level 8.9 MG/DL (8.5-10.1) Total Bilirubin 0.1 MG/DL (0.2-1.0) L Aspartate Amino Transf (AST/SGOT) 17 U/L (15-37) Alanine Aminotransferase (ALT/SGPT) 31 U/L (12-78) Alkaline Phosphatase 132 U/L (46-116) H Total Protein 8.2 G/DL (6.4-8.2) Albumin 3.0 G/DL (3.4-5.0) L Globulin 5.2 g/dL Albumin/Globulin Ratio 0.6 (1.0-2.7) L Plan Problems: (1) Sacral decubitus ulcer Assessment & Plan: This is a 83-year-old female with multiple medical committees that is currently admitted for medical care and management and identified to have multiple wounds requiring care. On admission patient noted to have a resolved sacral decubitus ulcer. Has had prior care and is well-healed at this time. Will ensure it does not open up again. Patient has a right ischial decubitus ulcer that is resolved. Scar intact and well formed. Will monitor to ensure it does not open up again. Patient has a left ischial decubitus ulcer that can be identified to be stage IV with palpable bone that has been resolving as noted by the periwound tissue and scar but open area approximately 1 cm x 1.5 cm few millimeters deep to bone identified. Unsure if this is been to be completely healed prior and has since opened or if has been healing at this level. No foul odor no drainage was unsure local wound care until healed Bilateral heels soft without signs of injury Resolving pressure injury L ischium(L)1.8cm x (W)1cm.Scattered biofilm at base of wound. Edges flat and adherent with surrounding hyperpigmentation. No odor or exudate noted. Sacrum is pale pink with surrounding hyperpigmentation. Hyperpigmentation R ischium with small sheared area centrally.No areas of erythema or exudate noted. Both heels are soft but blanchable. Skin Assessed under collar of trach and no evidence of skin breakdown noted. All wound Tx. are effective and continued as ordered. Pt ahs an APM/Belén mattress overlay and is being repositioned per protocols and per tolerance.No new skin concerns noted. Full thickness pressure injury L Ischium with small amt biofilm (L)1.8cm x (W) 1cm. Surrounding pink hyperpigmentation. No odor or exudate noted. [place] hyperpigmentation from previous wound noted to sacrum. Pt also noted to have Cat 2 Skin Tear dorsal L hand, L 5th metatarsal extending into palm of hand. 80% skin flap in situ.Both heels are dry firm and blanchable. No other skin concerns noted. R ischial wound has resolved. [place] epithelial with surrounding hyperpigmentation. from historical wound. Full thickness pressure injury L ischium. [place] granulation at base of wound. Borders are macerated with Surrounding hyperpigmentation.Small amt non-odorous serous exudate noted.(L)0.7cm x (W)0.8cm. Skin hyperpigmentation from historical wound noted to Sacrum. Small sheared area noted to sacrococcygeal area.(L)0.4cm x (W)0.3cm.Small amt sanguineous exudate noted. Reabsorbed blister with semi-detached dry necrotic cap noted to web space of L thumb and L index fingers extending into palm of L hand. No odor or exudate noted. Skin assessed under tracheal collar and no erythema or evidence of Skin Breakdown noted. NO new skin concerns noted . Good hand hygiene provided to both hands. R hand contracted and fisted. Fingernails trimmed. Wound care provided along with Primary nurse. Wound Tx continued as ordered. New order obtained from to apply Betadine to wound L hand Daily. Tx done as ordered. L hand wrapped with kerlix weaving kerlix between fingers to separate fingers. Moisture Barrier applied to sacrum ,R ischium. Each site covered with Optifoam drsg. Both lower ext washed and moisturized. Cavilon Skin Barrier applied to both heels.Each heel covered with Optifoam drsgs. Pt positioned with pillows and both heels off-loaded with pillow. Tx.Plan: Apply Betadine to wound L hand. Cover with Gauze and wrap with Kerlix Daily and prn. Cleanse L ischial wound with Saline. Apply Therahoney. Apply Moisture Barrier periwound. Cover with Optifoam drsgevery 3 days and prn. Apply Moisture Barrier Paste to R ischium and Sacrum. Cover each area with Optifoam drsg. Change every 3 days and prn. Apply Cavilon Skin Barrier to both heels. Cover each heel with Optifoam drsg. Change every 7 days and prn. APM/BELÉN Mattress overlay. Reposition at least every 2hours or as tolerated. Off-load heels with pillow. Cleanse Blister Dorsal and palm of L hand with saline. Versatel One Silicone Contact Layer(Applied). Apply Silvasorb Gel. Wrap with Kerlix Gauze.Change every 7 days and prn. Apply Moisture Barrier to sacrum. Cover with Optifoam drsg. Change every 3 days and prn. Cleanse L ischial wound with saline. Apply Therahoney. Apply Moisture Barrier Paste periwound. Cover with Optifoam drsg. Change every 3 days and prn. Apply Cavilon Skin Barrier to both heels. Cover each heel with Optifoam drsg. Change every 7 days and prn. APM/BELÉN Mattress overlay. Reposition at least every 2hours or as tolerated. Off-load heels with pillow. Nutritional optimization We will monitor follow with recommendations cont with above upon d/c (2) Sepsis Assessment & Plan: IV abx as per ID trend labs improving wounds unlikely etiology likely respiratory imaging noted and okay abnormal lft's stable PICC on Abx in ICU for desaturation CXR with consolidation cont with frequent suctioning d/c planning possible placement found Evidence of left lower lobe pneumonia, also previously demonstrated Gastrostomy in good position Mild diastasis of the rectus abdominis musculature again demonstrated Retrosacral decubitus changes, better depicted on prior exam which included the pelvis Small hiatal hernia with evidence of trace gastroesophageal reflux Discussed with GI. Recommend GJ family still pending decision (3) Feeding by G-tube Assessment & Plan: DAILY ESTIMATED NEEDS: Needs based on Pulmonary, wounds, bedbound/ 61kg adj 25-30 kcals/kg 5558-0132 total kcals 1.25-2 g protein/kg 76-122 g total protein 25-30 mL/kg 3120-7237 total fluid mLs NUTRITION DIAGNOSIS: * Increased kcal/prot needs R/T wound healing as evidenced by BL buttocks and sacral wound photos, refer to eval. * Swallowing difficulty R/T respiratory status as evidenced by pt on T-collar, now back the vent, PEG dep. CURRENT TF:Glucerna 1.5 @ 25ml/hr x 24 hrs - currently HELD d/t emesis ENTERAL NUTRITION RECOMMENDATIONS: Glucerna 1.5 @ 45ml/hr x 24 hrs to provide 1080ml, 1620kcal, 89g prot, 820ml free water - As medically able, rec to increase goal rate to 45ml/hr x24 hrs to meet 100% est kcal/prot needs - HOB over 30 degrees - Water flush of 170ml q 6 hrs * W/ continued regurgitation/ emesis, rec Osmolite 1.5 for GI tolerance. Rec goal of 45ml/hr to provide: 1080ml, 1620 kcal, 68g pro, 823ml free H20. * Add Prosource 1 pack daily to provide additional 11g pro. ADDITIONAL RECOMMENDATIONS: 1) Weekly weights 2) Wound healing: Add Cristian 1pkt BID w/ good TF tolerance + MVI x1 daily 3) Monitor lytes, replete as needed 4) Monitor BGs closely, need for NISS (wnl) 5) Monitor TF tolerance: rec Tf change as above if not (4) Chronic vegetative state Assessment & Plan: incontinence of urine and stool. can soil dressings. nurses doing great job with monitoring and changing prn (5) Leukocytosis Walter Madera Mar 31, 2019 11:50
--- NOTE | 2019-03-31 12:00 | NUR ---
NURSE NOTES: Patient vital signs stable at this time with no sign of acute distress. Patient opens eyes and does not track. Patient remains on trach to T-piece with 28% FiO2. Patient continues to have copious tracheal and oral secretions. Patient oral and tracheal suctioned at this time. G tube patent and set to drain to gravity and J tube unable to be flushed at this time. Feeding held at this time. PICC line remains patent, asymptomatic, and saline locked at this time. Dressing intact. Purewick remains patent and functional with straw yellow urine in the suction canister. All wound dressings changed at this time. Patient repositioned at this time. Bed in low position. Bed alarm on and call light in reach at this time.
--- NOTE | 2019-03-31 13:26 | NUR ---
NURSE NOTES: Left message for Dr Vaughan regarding patient's Jejunostomy tube which is unable to be flushed at this time. Tube was flushed at 0900 and when attempting to flush at 1200, the tube was unable to be flushed. Tube feeding was not stopped at all between 0900 and 1200. J tube was flushed on schedule at 0600 this morning and an additional time at 0900 as a precaution. Awaiting call back at this time.
--- NOTE | 2019-03-31 14:11 | NUR ---
NURSE NOTES: Dr Vaughan rounded on the patient. Notified him that patient's J tube is not flushing. Dr Vaughan attempted to unclog it. Attempt was unsuccessful. Received order to discontinue tube feeding order at this time and start patient on D5 0.45% NS at 75mL/hr at this time. Orders read back, verified, and placed at this time.
[2019-03-31] MEDS ORDERED: D5 1/2NS 1,000 ML IV SCH (14:30)
--- NOTE | 2019-03-31 16:00 | NUR ---
NURSE NOTES: Patient vital signs stable at this time with no sign of acute distress. Patient opens eyes and does not track. Patient remains on trach to T-piece with 28% FiO2. Patient continues to have copious tracheal and oral secretions. Patient oral and tracheal suctioned at this time. G tube patent and set to drain to gravity and J tube unable to be flushed at this time. Feeding still held at this time. PICC line remains patent, asymptomatic, and saline locked at this time. Dressing intact. Purewick remains patent and functional with straw yellow urine in the suction canister. Patient repositioned at this time. Bed in low position. Bed alarm on and call light in reach at this time.
--- NOTE | 2019-03-31 18:00 | NUR ---
NURSE NOTES: Vital signs stable. No sign of acute distress. Patient repositioned and cleaned. Oral and tracheal suction performed. Will continue to monitor. Bed in low position with bed alarm on and call light in reach.
--- NOTE | 2019-03-31 19:35 | NUR ---
HAND-OFF: Report given to JEANNINE Armstrong. Patient VS stable.
--- NOTE | 2019-03-31 20:19 | General Progress Note ---
Assessment/Plan Status: stable, progressing Assessment/Plan: Assessment - N/V - resolved with G --> J conversion - occluded J port - Elevated Alk phos / LFT - CT negative - abd U/S negative - check hepatitis serologies - negative - Anemia with OB (-) stools - Resp failure, s/p Trach - dysphagia, s/p PEG --> s/p GT change--> GJ tube - OBS, vegetative obtunded unresponsive state, bedbound with contracted extremities, - h/o minor GJ tube site irritation - poor Prognosis Recommendations - laxative PRN - antibiotic ointment to GJT site PRN - aspiration precautions - elevate HOB - message placed on DTR line to call me re GJ tube replacement Subjective Allergies: Coded Allergies: CODEINE (Verified Allergy, Unknown, HIVES, 09/15/09) Subjective above noted called by RN re clogged J port of GJ tube unable to clear the port Objective Last 24 Hour Vital Signs Date Time Temp Pulse Resp B/P (MAP) Pulse Ox O2 Delivery O2 Flow Rate FiO2 03/31/19 19:12 100 T-Piece 5.0 28 03/31/19 19:10 76 22 100 T-Piece 5.0 28 73 22 100 03/31/19 19:00 69 21 121/58 (79) 100 03/31/19 18:00 99 16 129/114 (119) 100 03/31/19 17:00 77 20 102/47 (65) 99 03/31/19 16:00 T-piece 5.0 T-piece 5.0 03/31/19 16:00 75 03/31/19 16:00 98.6 80 23 99/44 (62) 98 03/31/19 16:00 28 03/31/19 15:13 86 22 100 T-Piece 5.0 28 84 23 99 03/31/19 15:00 79 22 93/47 (62) 98 03/31/19 14:00 85 21 112/78 (89) 100 03/31/19 13:00 89 22 126/51 (76) 100 03/31/19 12:51 100 T-Piece 5.0 28 03/31/19 12:00 98.7 84 17 120/52 (74) 100 03/31/19 12:00 85 03/31/19 12:00 T-piece 5.0 T-piece 5.0 03/31/19 12:00 28 03/31/19 11:00 77 19 126/52 (76) 100 03/31/19 10:34 83 19 100 T-Piece 5.0 28 78 21 100 03/31/19 10:00 78 20 129/51 (77) 100 03/31/19 09:00 77 19 123/56 (78) 100 03/31/19 08:00 T-piece 5.0 T-piece 5.0 03/31/19 08:00 74 03/31/19 08:00 98.6 76 21 122/47 (72) 100 03/31/19 08:00 28 03/31/19 07:57 98 20 99 T-Piece 5.0 28 92 20 100 03/31/19 07:16 100 T-Piece 5.0 28 03/31/19 07:00 73 23 129/62 (84) 100 03/31/19 06:00 79 23 116/49 (71) 100 03/31/19 05:00 74 21 106/82 (90) 100 03/31/19 04:00 T-piece 5.0 T-piece 5.0 03/31/19 04:00 28 03/31/19 04:00 98.4 80 22 125/50 (75) 100 03/31/19 03:50 76 03/31/19 03:24 102 22 99 T-Piece 5.0 28 94 20 100 03/31/19 03:00 73 21 107/52 (70) 100 03/31/19 02:14 85 22 124/56 (78) 100 03/31/19 02:00 78 22 90/51 (64) 100 03/31/19 01:26 99 T-Piece 5.0 28 03/31/19 01:00 74 23 98/44 (62) 100 03/31/19 00:02 93 22 100 T-Piece 5.0 28 91 20 100 03/31/19 00:00 70 03/31/19 00:00 T-piece 5.0 T-piece 5.0 03/31/19 00:00 28 03/31/19 00:00 98.4 70 21 127/55 (79) 100 03/30/19 23:00 71 19 118/60 (79) 100 03/30/19 22:00 72 20 104/47 (66) 100 03/30/19 21:00 66 21 119/52 (74) 100 Intake and Output 03/30/19 03/31/19 19:00 07:00 Intake Total 900 ml 900 ml Output Total 450 ml 480 ml Balance 450 ml 420 ml Free Water 180 ml 120 ml Tube Feeding 600 ml 600 ml Other 120 ml 180 ml Output Urine Total 330 ml 400 ml Gastric Drainage Total 120 ml 80 ml Laboratory Tests 03/31/19 08:50: White Blood Count 8.1, Red Blood Count 3.04L, Hemoglobin 8.7L, Hematocrit 26.9L , Mean Corpuscular Volume 88, Mean Corpuscular Hemoglobin 28.5, Mean Corpuscular Hemoglobin Concent 32.3, Red Cell Distribution Width 16.6H, Platelet Count 230, Mean Platelet Volume 6.4L, Neutrophils (%) (Auto) 54.0, Lymphocytes (%) (Auto) 33.5, Monocytes (%) (Auto) 5.8, Eosinophils (%) (Auto) 6.0H, Basophils (%) (Auto) 0.8, Sodium Level 146H, Potassium Level 4.8, Chloride Level 109H, Carbon Dioxide Level 32, Anion Gap 5, Blood Urea Nitrogen 49H, Creatinine 1.0, Estimat Glomerular Filtration Rate , Glucose Level 114H, Calcium Level 8.9, Total Bilirubin 0.1L, Aspartate Amino Transf (AST/SGOT) 17, Alanine Aminotransferase (ALT/SGPT) 31, Alkaline Phosphatase 132H, Total Protein 8.2, Albumin 3.0L, Globulin 5.2, Albumin/Globulin Ratio 0.6L Height (Feet): 5 Height (Inches): 4.00 Weight (Pounds): 111 Objective Debilitated AA woman non-verbal, obtunded NCAT (+) trach coarse BS RR obese abd, (+) GJT no edema (+) contractured extremities Celio Vaughan MD Mar 31, 2019 20:19
[2019-03-31] MEDS: Dyna-Hex 2% Top Sol 2oz TOPIC SCH (20:46)
[2019-03-31] MEDS: D5 1/2NS 1,000 ML IV SCH (21:03)
--- NOTE | 2019-03-31 22:00 | NUR ---
NURSE NOTES: reposition and suction no acute resp distress noted
[2019-04-01] VITALS (24 sets, daily range): BP systolic 99–174; BP diastolic 37–89
--- NOTE | 2019-04-01 | NUR ---
NURSE NOTES: asleep reposition and suction
--- NOTE | 2019-04-01 02:00 | NUR ---
NURSE NOTES:no acute distress noted
[2019-04-01] MEDS: Metoclopramide 10mg/2ml Inj IVP SCH ×4 (02:46→20:30)
[2019-04-01] MEDS: Albuterol/Ipratropium 3ml neb HHN SCH ×6 (03:00→23:32)
--- NOTE | 2019-04-01 04:00 | NUR ---
NURSE NOTES: complete bed bath oral care reposition and suction
--- NOTE | 2019-04-01 06:00 | NUR ---
asleep noacute distress noted
[2019-04-01] MEDS: D5 1/2NS 1,000 ML IV SCH ×2 (06:57→16:32)
--- NOTE | 2019-04-01 07:42 | NUR ---
NURSE NOTES: Received patient from Patti RN, Patient is obtunded. Receiving oxygen via Shiley 6, T-piece FiO2 28%, no signs of respiratory distress, O2 saturation at 100%. Patient is Sinus Rhythm on the monitor, HR 64. G-tube is intact and draining via gravity. IV site is Right Upper Arm PICC, intact and receiving D5 1/2NS @100cc/hr. Purewick is intact and draining. Bed is locked, placed in lowest position, side rails up x3, bed alarm on, call light within reach, head of bed elevated. Will continue to monitor.
--- NOTE | 2019-04-01 07:54 | NUR ---
HAND-OFF: Report given to moses rn using sbar .
--- NOTE | 2019-04-01 09:27 | NUR ---
NURSE NOTES: Patient seen and assessed by Dr. Vaughan.
[2019-04-01] MEDS: Heparin 5000 units/ml inj SUBQ SCH ×2 (09:50→20:33)
--- NOTE | 2019-04-01 09:59 | NUR ---
NURSE NOTES: Turned and repositioned patient, oral care given, patient showing no signs of acute distress. Will continue to monitor.
--- NOTE | 2019-04-01 10:12 | NUR ---
NURSE NOTES: Vital AF feeding started via G-tube at 10cc/hr as ordered by Dr. Vaughan. Will continue to monitor.
--- NOTE | 2019-04-01 11:18 | General Progress Note ---
Assessment/Plan Problem List: (1) Seizure ICD Codes: R56.9 - Unspecified convulsions SNOMED: 41542826 (2) Anemia ICD Codes: D64.9 - Anemia, unspecified SNOMED: 345421242 Qualifiers: Qualified Codes: D64.9 - Anemia, unspecified (3) Sepsis ICD Codes: A41.9 - Sepsis, unspecified organism SNOMED: 45399198, 737384445 Qualifiers: Qualified Codes: A41.9 - Sepsis, unspecified organism (4) Respiratory failure with hypoxia ICD Codes: J96.91 - Respiratory failure, unspecified with hypoxia SNOMED: 62400106387430493 Qualifiers: Qualified Codes: J96.21 - Acute and chronic respiratory failure with hypoxia (5) HCAP (healthcare-associated pneumonia) ICD Codes: J18.9 - Pneumonia, unspecified organism SNOMED: 222749067, 245317415 (6) Sacral decubitus ulcer ICD Codes: L89.159 - Pressure ulcer of sacral region, unspecified stage SNOMED: 447662674 (7) HTN (hypertension) ICD Codes: I10 - Essential (primary) hypertension SNOMED: 78038726 (8) Chronic vegetative state ICD Codes: R40.3 - Persistent vegetative state SNOMED: 13707525 (9) Chronic respiratory failure ICD Codes: J96.10 - Chronic respiratory failure, unspecified whether with hypoxia or hypercapnia SNOMED: 55850260 (10) Limited mobility ICD Codes: Z74.09 - Other reduced mobility SNOMED: 4796554 Status: stable, progressing Assessment/Plan: vent as needed resp rx suctioning j tube feeds g port to [facility] skin [facility] sz rx monitor h/h dc planning Subjective ROS Limited/Unobtainable: Yes Constitutional: Reports: malaise, weakness HEENT: Reports: no symptoms Cardiovascular: Reports: no symptoms Respiratory: Reports: cough, shortness of breath, sputum Gastrointestinal/Abdominal: Reports: difficulty swallowing Genitourinary: Reports: no symptoms Neurologic/Psychiatric: Reports: pre-existing deficit, seizure Endocrine: Reports: no symptoms Hematologic/Lymphatic: Reports: anemia Allergies: Coded Allergies: CODEINE (Verified Allergy, Unknown, HIVES, 09/15/09) All Systems: reviewed and negative except above Subjective no events. stable on the vent, tolerating feeds, no fevers. no szs. Objective Last 24 Hour Vital Signs Date Time Temp Pulse Resp B/P (MAP) Pulse Ox O2 Delivery O2 Flow Rate FiO2 04/01/19 10:55 77 19 100 T-Piece 5.0 28 76 21 100 04/01/19 10:00 82 21 140/62 (88) 100 04/01/19 09:00 82 20 135/58 (83) 100 04/01/19 08:00 97.1 102 14 157/89 (111) 96 04/01/19 08:00 28 04/01/19 08:00 T-piece 5.0 T-piece 5.0 04/01/19 07:41 100 T-Piece 5.0 28 04/01/19 07:39 72 22 100 T-Piece 5.0 28 68 20 100 04/01/19 07:00 64 21 139/47 (77) 04/01/19 06:00 61 21 132/59 (83) 100 04/01/19 05:00 71 19 161/80 (107) 100 04/01/19 04:00 97.8 64 21 129/55 (79) 100 04/01/19 04:00 T-piece 5.0 T-piece 5.0 04/01/19 04:00 63 04/01/19 04:00 28 04/01/19 03:00 84 18 100 T-Piece 5.0 28 81 18 98 04/01/19 03:00 61 21 113/54 (73) 100 04/01/19 02:00 82 23 124/55 (78) 97 04/01/19 01:28 100 T-Piece 5.0 28 04/01/19 01:00 67 20 134/54 (80) 100 04/01/19 00:00 65 04/01/19 00:00 T-piece 5.0 T-piece 5.0 04/01/19 00:00 28 04/01/19 00:00 98.4 61 20 128/55 (79) 100 03/31/19 23:32 79 22 100 T-Piece 5.0 28 78 18 98 03/31/19 23:00 70 21 126/69 (88) 100 03/31/19 22:00 65 21 119/49 (72) 100 03/31/19 21:00 66 19 129/53 (78) 100 03/31/19 20:00 68 19 122/58 (79) 100 03/31/19 20:00 T-piece 5.0 T-piece 5.0 03/31/19 20:00 63 03/31/19 20:00 28 03/31/19 19:12 100 T-Piece 5.0 28 03/31/19 19:10 76 22 100 T-Piece 5.0 28 73 22 100 03/31/19 19:00 69 21 121/58 (79) 100 03/31/19 18:00 99 16 129/114 (119) 100 03/31/19 17:00 77 20 102/47 (65) 99 03/31/19 16:00 T-piece 5.0 T-piece 5.0 03/31/19 16:00 75 03/31/19 16:00 98.6 80 23 99/44 (62) 98 03/31/19 16:00 28 03/31/19 15:13 86 22 100 T-Piece 5.0 28 84 23 99 03/31/19 15:00 79 22 93/47 (62) 98 03/31/19 14:00 85 21 112/78 (89) 100 03/31/19 13:00 89 22 126/51 (76) 100 03/31/19 12:51 100 T-Piece 5.0 28 03/31/19 12:00 98.7 84 17 120/52 (74) 100 03/31/19 12:00 85 03/31/19 12:00 T-piece 5.0 T-piece 5.0 03/31/19 12:00 28 Intake and Output 03/31/19 04/01/19 19:00 07:00 Intake Total 855 ml 1005 ml Output Total 325 ml 350 ml Balance 530 ml 655 ml Free Water 60 ml IV Total 375 ml 1005 ml Tube Feeding 300 ml Other 120 ml Output Urine Total 245 ml 350 ml Gastric Drainage Total 80 ml # Voids 2 Height (Feet): 5 Height (Inches): 4.00 Weight (Pounds): 115 Objective General Appearance: WD/WN, confused. on trach collar Neck: supple Cardiovascular: normal rate, regular rhythm Respiratory/Chest: chest wall non-tender, rhonchi - bilaterally(minimal) Abdomen: normal bowel sounds, non tender, soft, no organomegaly Edema: no edema noted Arm (L), no edema noted Arm (R), no edema noted Leg (L), no edema noted Leg (R), no edema noted Pedal (L), no edema noted Pedal (R), no edema noted Generalized Neurologic: disoriented, unresponsive, aphasia Irvin Beltrán MD Apr 01, 2019 11:18
--- NOTE | 2019-04-01 11:29 | Infectious Diseases Prog Note ---
"Assessment/Plan Assessment/Plan antibiotics : none A 1. klebsiella | providencia pneumonia s/p rx 2. respiratory failure 3. hypertension 4. CVA 5. dementia 6. sacral decubitus ulcer 7. rectal VRE colonization P 1. observe off antibiotics 2. dc planned Subjective ROS Limited/Unobtainable: Yes Allergies: Coded Allergies: CODEINE (Verified Allergy, Unknown, HIVES, 09/15/09) Objective Vital Signs Last 24 Hour Vital Signs Date Time Temp Pulse Resp B/P (MAP) Pulse Ox O2 Delivery O2 Flow Rate FiO2 04/01/19 10:55 77 19 100 T-Piece 5.0 28 76 21 100 04/01/19 10:00 82 21 140/62 (88) 100 04/01/19 09:00 82 20 135/58 (83) 100 04/01/19 08:00 97.1 102 14 157/89 (111) 96 04/01/19 08:00 28 04/01/19 08:00 T-piece 5.0 T-piece 5.0 04/01/19 07:41 100 T-Piece 5.0 28 04/01/19 07:39 72 22 100 T-Piece 5.0 28 68 20 100 04/01/19 07:00 64 21 139/47 (77) 04/01/19 06:00 61 21 132/59 (83) 100 04/01/19 05:00 71 19 161/80 (107) 100 04/01/19 04:00 97.8 64 21 129/55 (79) 100 04/01/19 04:00 T-piece 5.0 T-piece 5.0 04/01/19 04:00 63 04/01/19 04:00 28 04/01/19 03:00 84 18 100 T-Piece 5.0 28 81 18 98 04/01/19 03:00 61 21 113/54 (73) 100 04/01/19 02:00 82 23 124/55 (78) 97 04/01/19 01:28 100 T-Piece 5.0 28 04/01/19 01:00 67 20 134/54 (80) 100 04/01/19 00:00 65 04/01/19 00:00 T-piece 5.0 T-piece 5.0 04/01/19 00:00 28 04/01/19 00:00 98.4 61 20 128/55 (79) 100 03/31/19 23:32 79 22 100 T-Piece 5.0 28 78 18 98 03/31/19 23:00 70 21 126/69 (88) 100 03/31/19 22:00 65 21 119/49 (72) 100 03/31/19 21:00 66 19 129/53 (78) 100 03/31/19 20:00 68 19 122/58 (79) 100 03/31/19 20:00 T-piece 5.0 T-piece 5.0 03/31/19 20:00 63 03/31/19 20:00 28 03/31/19 19:12 100 T-Piece 5.0 28 03/31/19 19:10 76 22 100 T-Piece 5.0 28 73 22 100 03/31/19 19:00 69 21 121/58 (79) 100 03/31/19 18:00 99 16 129/114 (119) 100 03/31/19 17:00 77 20 102/47 (65) 99 03/31/19 16:00 T-piece 5.0 T-piece 5.0 03/31/19 16:00 75 03/31/19 16:00 98.6 80 23 99/44 (62) 98 03/31/19 16:00 28 03/31/19 15:13 86 22 100 T-Piece 5.0 28 84 23 99 03/31/19 15:00 79 22 93/47 (62) 98 03/31/19 14:00 85 21 112/78 (89) 100 03/31/19 13:00 89 22 126/51 (76) 100 03/31/19 12:51 100 T-Piece 5.0 28 03/31/19 12:00 98.7 84 17 120/52 (74) 100 03/31/19 12:00 85 03/31/19 12:00 T-piece 5.0 T-piece 5.0 03/31/19 12:00 28 Height (Feet): 5 Height (Inches): 4.00 Weight (Pounds): 115 HEENT: status post trach Respiratory/Chest: lungs clear Cardiovascular: normal rate, regular rhythm, no gallop/murmur Abdomen: soft, non tender, other - GT Extremities: no edema, other - right arm PICC Current Medications Medications (Trade) Dose Ordered Sig/Maicol Route PRN Reason Start Time Stop Time Status Last Admin Dose Admin Acetaminophen (Tylenol) 650 mg Q6H PRN GT Mild Pain/Temp > 100.5 03/23/19 15:15 04/22/19 15:14 03/23/19 19:09 Albuterol/ Ipratropium (Albuterol/ Ipratropium) 3 ml Q4HRT HHN 03/30/19 19:00 04/04/19 18:59 04/01/19 10:56 Atropine Sulfate (Atropine Opth Adriana) 2 drop TID SL 03/07/19 09:00 04/06/19 08:59 04/01/19 08:24 Chlorhexidine Gluconate (Cesilia-Hex 2%) 1 applic DAILY@2000 TOPIC 03/12/19 20:00 04/11/19 19:59 03/31/19 20:46 Dextrose/Sodium Chloride 1,000 ml @ 100 mls/hr Q10H IV 03/31/19 21:00 04/30/19 20:59 04/01/19 06:57 Heparin Sodium (Porcine) (Heparin 5000 units/ml) 5,000 units EVERY 12 HOURS SUBQ 04/01/19 10:00 05/01/19 09:59 04/01/19 09:50 Hydralazine HCl (Apresoline) 10 mg Q4H PRN IV For High Blood Pressure 03/12/19 09:00 04/11/19 08:59 03/18/19 18:17 Lansoprazole (Prevacid) 30 mg Q12HR GT 03/29/19 09:00 04/24/19 20:59 04/01/19 08:23 Metoclopramide HCl (Reglan) 5 mg Q6H IVP 03/24/19 20:00 04/23/19 19:59 04/01/19 08:23 Ondansetron HCl (Zofran) 4 mg Q4H PRN IVP Nausea & Vomiting 03/18/19 18:15 04/17/19 18:14 03/21/19 08:27 Geovany Yang MD Apr 01, 2019 11:29"
--- NOTE | 2019-04-01 13:11 | General Progress Note ---
Assessment/Plan Status: stable, progressing Assessment/Plan: Assessment - N/V - resolved with G --> J conversion - occluded J port - Elevated Alk phos / LFT - CT negative - abd U/S negative - check hepatitis serologies - negative - Anemia with OB (-) stools - Resp failure, s/p Trach - dysphagia, s/p PEG --> s/p GT change--> GJ tube - OBS, vegetative obtunded unresponsive state, bedbound with contracted extremities, - h/o minor GJ tube site irritation - poor Prognosis Recommendations - laxative PRN - antibiotic ointment to GJT site PRN - aspiration precautions - elevate HOB - Endoscopy with GJ tube replacement at 1100 Subjective Allergies: Coded Allergies: CODEINE (Verified Allergy, Unknown, HIVES, 09/15/09) Subjective above noted d/w daughter this am over phone daughter agreed with EGD for purpose of GJ tube replacement advised daughter could start low dose feeds for partial nutrition for today - agreed d/e 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 mgr Objective Last 24 Hour Vital Signs Date Time Temp Pulse Resp B/P (MAP) Pulse Ox O2 Delivery O2 Flow Rate FiO2 04/01/19 12:00 98.2 70 19 142/56 (84) 100 04/01/19 12:00 28 04/01/19 12:00 T-piece 5.0 T-piece 5.0 04/01/19 11:00 76 21 141/63 (89) 100 04/01/19 10:55 77 19 100 T-Piece 5.0 28 76 21 100 04/01/19 10:00 82 21 140/62 (88) 100 04/01/19 09:00 82 20 135/58 (83) 100 04/01/19 08:00 97.1 102 14 157/89 (111) 96 04/01/19 08:00 28 04/01/19 08:00 T-piece 5.0 T-piece 5.0 04/01/19 07:41 100 T-Piece 5.0 28 04/01/19 07:39 72 22 100 T-Piece 5.0 28 68 20 100 04/01/19 07:00 64 21 139/47 (77) 04/01/19 06:00 61 21 132/59 (83) 100 04/01/19 05:00 71 19 161/80 (107) 100 04/01/19 04:00 97.8 64 21 129/55 (79) 100 04/01/19 04:00 T-piece 5.0 T-piece 5.0 04/01/19 04:00 63 04/01/19 04:00 28 04/01/19 03:00 84 18 100 T-Piece 5.0 28 81 18 98 04/01/19 03:00 61 21 113/54 (73) 100 04/01/19 02:00 82 23 124/55 (78) 97 04/01/19 01:28 100 T-Piece 5.0 28 04/01/19 01:00 67 20 134/54 (80) 100 04/01/19 00:00 65 04/01/19 00:00 T-piece 5.0 T-piece 5.0 04/01/19 00:00 28 04/01/19 00:00 98.4 61 20 128/55 (79) 100 03/31/19 23:32 79 22 100 T-Piece 5.0 28 78 18 98 03/31/19 23:00 70 21 126/69 (88) 100 03/31/19 22:00 65 21 119/49 (72) 100 03/31/19 21:00 66 19 129/53 (78) 100 03/31/19 20:00 68 19 122/58 (79) 100 03/31/19 20:00 T-piece 5.0 T-piece 5.0 03/31/19 20:00 63 03/31/19 20:00 28 03/31/19 19:12 100 T-Piece 5.0 03/31/19 19:10 76 22 100 T-Piece 5.0 73 22 100 03/31/19 19:00 69 21 121/58 (79) 100 03/31/19 18:00 99 16 129/114 (119) 100 03/31/19 17:00 77 20 102/47 (65) 99 03/31/19 16:00 T-piece 5.0 T-piece 5.0 03/31/19 16:00 75 03/31/19 16:00 98.6 80 23 99/44 (62) 98 03/31/19 16:00 28 03/31/19 15:13 86 22 100 T-Piece 5.0 84 23 99 03/31/19 15:00 79 22 93/47 (62) 98 03/31/19 14:00 85 21 112/78 (89) 100 Intake and Output 03/31/19 04/01/19 19:00 07:00 Intake Total 855 ml 1005 ml Output Total 325 ml 350 ml Balance 530 ml 655 ml Free Water 60 ml IV Total 375 ml 1005 ml Tube Feeding 300 ml Other 120 ml Output Urine Total 245 ml 350 ml Gastric Drainage Total 80 ml # Voids 2 Height (Feet): 5 Height (Inches): 4.00 Weight (Pounds): 115 Objective Debilitated AA woman non-verbal, obtunded NCAT (+) trach coarse BS RR obese abd, (+) GJT no edema (+) contractured extremities Celio Vaughan MD Apr 01, 2019 13:11
--- NOTE | 2019-04-01 13:45 | NUR ---
NURSE NOTES: Tracheal and oral suctioning done on patient, approximately 10cc of sputum removed. Patient tolerated well, O2 saturation remains at 100%. Will continue to monitor.
--- NOTE | 2019-04-01 14:39 | Nephrology Progress Note ---
Assessment/Plan Problem List: (1) Acute renal failure (ARF) Assessment: Cr stable (2) Chronic respiratory failure (3) Anemia (4) Sepsis Assessment Acute renal failure Respiratory failure - Trach Low Mag- Low k , Low Na Anemia UTI / Sepsis Proteinuria / HypoAlbuminemia high Trigs Sz decubs bed bound DNR Plan now has JT bolus Albumin as needed K and Mag and Phos supplement as needed Hydrate as needed Urine studies avoid Nephrotoxics mag K Phos supplements as needed monitor renal parameters Subjective ROS Limited/Unobtainable: Yes Objective Objective Last 24 Hour Vital Signs Date Time Temp Pulse Resp B/P (MAP) Pulse Ox O2 Delivery O2 Flow Rate FiO2 04/01/19 14:00 74 21 139/61 (87) 100 04/01/19 13:58 100 T-Piece 5.0 28 04/01/19 13:00 69 20 148/56 (86) 100 04/01/19 12:00 98.2 70 19 142/56 (84) 100 04/01/19 12:00 28 04/01/19 12:00 T-piece 5.0 T-piece 5.0 04/01/19 11:55 79 04/01/19 11:00 76 21 141/63 (89) 100 04/01/19 10:55 77 19 100 T-Piece 5.0 28 76 21 100 04/01/19 10:00 82 21 140/62 (88) 100 04/01/19 09:00 82 20 135/58 (83) 100 04/01/19 08:00 97.1 102 14 157/89 (111) 96 04/01/19 08:00 28 04/01/19 08:00 T-piece 5.0 T-piece 5.0 04/01/19 07:41 100 T-Piece 5.0 28 04/01/19 07:39 72 22 100 T-Piece 5.0 28 68 20 100 04/01/19 07:25 65 04/01/19 07:00 64 21 139/47 (77) 04/01/19 06:00 61 21 132/59 (83) 100 04/01/19 05:00 71 19 161/80 (107) 100 04/01/19 04:00 97.8 64 21 129/55 (79) 100 04/01/19 04:00 T-piece 5.0 T-piece 5.0 04/01/19 04:00 63 04/01/19 04:00 28 04/01/19 03:00 84 18 100 T-Piece 5.0 28 81 18 98 04/01/19 03:00 61 21 113/54 (73) 100 04/01/19 02:00 82 23 124/55 (78) 97 04/01/19 01:28 100 T-Piece 5.0 28 04/01/19 01:00 67 20 134/54 (80) 100 04/01/19 00:00 65 04/01/19 00:00 T-piece 5.0 T-piece 5.0 04/01/19 00:00 28 04/01/19 00:00 98.4 61 20 128/55 (79) 100 03/31/19 23:32 79 22 100 T-Piece 5.0 28 78 18 98 03/31/19 23:00 70 21 126/69 (88) 100 03/31/19 22:00 65 21 119/49 (72) 100 03/31/19 21:00 66 19 129/53 (78) 100 03/31/19 20:00 68 19 122/58 (79) 100 03/31/19 20:00 T-piece 5.0 T-piece 5.0 03/31/19 20:00 63 03/31/19 20:00 28 03/31/19 19:12 100 T-Piece 5.0 28 03/31/19 19:10 76 22 100 T-Piece 5.0 28 73 22 100 03/31/19 19:00 69 21 121/58 (79) 100 03/31/19 18:00 99 16 129/114 (119) 100 03/31/19 17:00 77 20 102/47 (65) 99 03/31/19 16:00 T-piece 5.0 T-piece 5.0 03/31/19 16:00 75 03/31/19 16:00 98.6 80 23 99/44 (62) 98 03/31/19 16:00 28 03/31/19 15:13 86 22 100 T-Piece 5.0 28 84 23 99 03/31/19 15:00 79 22 93/47 (62) 98 Intake and Output 03/31/19 04/01/19 19:00 07:00 Intake Total 855 ml 1005 ml Output Total 325 ml 350 ml Balance 530 ml 655 ml Free Water 60 ml IV Total 375 ml 1005 ml Tube Feeding 300 ml Other 120 ml Output Urine Total 245 ml 350 ml Gastric Drainage Total 80 ml # Voids 2 Height (Feet): 5 Height (Inches): 4.00 Weight (Pounds): 115 General Appearance: no apparent distress EENT: other - trach to O2 tube Cardiovascular: normal rate Respiratory/Chest: decreased breath sounds Abdomen: distended Objective no change Eric Cortez MD Apr 01, 2019 14:39
--- NOTE | 2019-04-01 14:57 | Surgery Progress Note ---
Surgery Progress Note Subjective Additional Comments No acute events Objective Last 24 Hour Vital Signs Date Time Temp Pulse Resp B/P (MAP) Pulse Ox O2 Delivery O2 Flow Rate FiO2 04/01/19 14:00 74 21 139/61 (87) 100 04/01/19 13:58 100 T-Piece 5.0 28 04/01/19 13:00 69 20 148/56 (86) 100 04/01/19 12:00 98.2 70 19 142/56 (84) 100 04/01/19 12:00 28 04/01/19 12:00 T-piece 5.0 T-piece 5.0 04/01/19 11:55 79 04/01/19 11:00 76 21 141/63 (89) 100 04/01/19 10:55 77 19 100 T-Piece 5.0 28 76 21 100 04/01/19 10:00 82 21 140/62 (88) 100 04/01/19 09:00 82 20 135/58 (83) 100 04/01/19 08:00 97.1 102 14 157/89 (111) 96 04/01/19 08:00 28 04/01/19 08:00 T-piece 5.0 T-piece 5.0 04/01/19 07:41 100 T-Piece 5.0 28 04/01/19 07:39 72 22 100 T-Piece 5.0 28 68 20 100 04/01/19 07:25 65 04/01/19 07:00 64 21 139/47 (77) 04/01/19 06:00 61 21 132/59 (83) 100 04/01/19 05:00 71 19 161/80 (107) 100 04/01/19 04:00 97.8 64 21 129/55 (79) 100 04/01/19 04:00 T-piece 5.0 T-piece 5.0 04/01/19 04:00 63 04/01/19 04:00 28 04/01/19 03:00 84 18 100 T-Piece 5.0 28 81 18 98 04/01/19 03:00 61 21 113/54 (73) 100 04/01/19 02:00 82 23 124/55 (78) 97 04/01/19 01:28 100 T-Piece 5.0 28 04/01/19 01:00 67 20 134/54 (80) 100 04/01/19 00:00 65 04/01/19 00:00 T-piece 5.0 T-piece 5.0 04/01/19 00:00 28 04/01/19 00:00 98.4 61 20 128/55 (79) 100 03/31/19 23:32 79 22 100 T-Piece 5.0 28 78 18 98 03/31/19 23:00 70 21 126/69 (88) 100 03/31/19 22:00 65 21 119/49 (72) 100 03/31/19 21:00 66 19 129/53 (78) 100 03/31/19 20:00 68 19 122/58 (79) 100 03/31/19 20:00 T-piece 5.0 T-piece 5.0 03/31/19 20:00 63 03/31/19 20:00 28 03/31/19 19:12 100 T-Piece 5.0 28 03/31/19 19:10 76 22 100 T-Piece 5.0 28 73 22 100 03/31/19 19:00 69 21 121/58 (79) 100 03/31/19 18:00 99 16 129/114 (119) 100 03/31/19 17:00 77 20 102/47 (65) 99 03/31/19 16:00 T-piece 5.0 T-piece 5.0 03/31/19 16:00 75 03/31/19 16:00 98.6 80 23 99/44 (62) 98 03/31/19 16:00 28 03/31/19 15:13 86 22 100 T-Piece 5.0 28 84 23 99 03/31/19 15:00 79 22 93/47 (62) 98 I&O Intake and Output 03/31/19 04/01/19 19:00 07:00 Intake Total 855 ml 1005 ml Output Total 325 ml 350 ml Balance 530 ml 655 ml Free Water 60 ml IV Total 375 ml 1005 ml Tube Feeding 300 ml Other 120 ml Output Urine Total 245 ml 350 ml Gastric Drainage Total 80 ml # Voids 2 Dressing: dry Wound: clean Cardiovascular: RSR Respiratory: clear, decreased breath sounds Abdomen: soft, present bowel sounds Extremities: no tenderness, no cyanosis Plan Problems: (1) Sacral decubitus ulcer Assessment & Plan: This is a 83-year-old female with multiple medical committees that is currently admitted for medical care and management and identified to have multiple wounds requiring care. On admission patient noted to have a resolved sacral decubitus ulcer. Has had prior care and is well-healed at this time. Will ensure it does not open up again. Patient has a right ischial decubitus ulcer that is resolved. Scar intact and well formed. Will monitor to ensure it does not open up again. Patient has a left ischial decubitus ulcer that can be identified to be stage IV with palpable bone that has been resolving as noted by the periwound tissue and scar but open area approximately 1 cm x 1.5 cm few millimeters deep to bone identified. Unsure if this is been to be completely healed prior and has since opened or if has been healing at this level. No foul odor no drainage was unsure local wound care until healed Bilateral heels soft without signs of injury Resolving pressure injury L ischium(L)1.8cm x (W)1cm.Scattered biofilm at base of wound. Edges flat and adherent with surrounding hyperpigmentation. No odor or exudate noted. Sacrum is pale pink with surrounding hyperpigmentation. Hyperpigmentation R ischium with small sheared area centrally.No areas of erythema or exudate noted. Both heels are soft but blanchable. Skin Assessed under collar of trach and no evidence of skin breakdown noted. All wound Tx. are effective and continued as ordered. Pt ahs an APM/Belén mattress overlay and is being repositioned per protocols and per tolerance.No new skin concerns noted. Full thickness pressure injury L Ischium with small amt biofilm (L)1.8cm x (W) 1cm. Surrounding pink hyperpigmentation. No odor or exudate noted. [place] hyperpigmentation from previous wound noted to sacrum. Pt also noted to have Cat 2 Skin Tear dorsal L hand, L 5th metatarsal extending into palm of hand. 80% skin flap in situ.Both heels are dry firm and blanchable. No other skin concerns noted. R ischial wound has resolved. [place] epithelial with surrounding hyperpigmentation. from historical wound. Full thickness pressure injury L ischium. [place] granulation at base of wound. Borders are macerated with Surrounding hyperpigmentation.Small amt non-odorous serous exudate noted.(L)0.7cm x (W)0.8cm. Skin hyperpigmentation from historical wound noted to Sacrum. Small sheared area noted to sacrococcygeal area.(L)0.4cm x (W)0.3cm.Small amt sanguineous exudate noted. Reabsorbed blister with semi-detached dry necrotic cap noted to web space of L thumb and L index fingers extending into palm of L hand. No odor or exudate noted. Skin assessed under tracheal collar and no erythema or evidence of Skin Breakdown noted. NO new skin concerns noted . Good hand hygiene provided to both hands. R hand contracted and fisted. Fingernails trimmed. Wound care provided along with Primary nurse. Wound Tx continued as ordered. New order obtained from to apply Betadine to wound L hand Daily. Tx done as ordered. L hand wrapped with kerlix weaving kerlix between fingers to separate fingers. Moisture Barrier applied to sacrum ,R ischium. Each site covered with Optifoam drsg. Both lower ext washed and moisturized. Cav[place] Skin Barrier applied to both heels.Each heel covered with Optifoam drsgs. Pt positioned with pillows and both heels off-loaded with pillow. Tx.Plan: Apply Betadine to wound L hand. Cover with Gauze and wrap with Kerlix Daily and prn. Cleanse L ischial wound with Saline. Apply Therahoney. Apply Moisture Barrier periwound. Cover with Optifoam drsgevery 3 days and prn. Apply Moisture Barrier Paste to R ischium and Sacrum. Cover each area with Optifoam drsg. Change every 3 days and prn. Apply Cavilon Skin Barrier to both heels. Cover each heel with Optifoam drsg. Change every 7 days and prn. APM/BELÉN Mattress overlay. Reposition at least every 2hours or as tolerated. Off-load heels with pillow. Cleanse Blister Dorsal and palm of L hand with saline. Versatel One Silicone Contact Layer(Applied). Apply Silvasorb Gel. Wrap with Kerlix Gauze.Change every 7 days and prn. Apply Moisture Barrier to sacrum. Cover with Optifoam drsg. Change every 3 days and prn. Cleanse L ischial wound with saline. Apply Therahoney. Apply Moisture Barrier Paste periwound. Cover with Optifoam drsg. Change every 3 days and prn. Apply Cavilon Skin Barrier to both heels. Cover each heel with Optifoam drsg. Change every 7 days and prn. APM/BELÉN Mattress overlay. Reposition at least every 2hours or as tolerated. Off-load heels with pillow. Nutritional optimization We will monitor follow with recommendations cont with above upon d/c (2) Sepsis Assessment & Plan: IV abx as per ID trend labs improving wounds unlikely etiology likely respiratory imaging noted and okay abnormal lft's stable PICC on Abx in ICU for desaturation CXR with consolidation cont with frequent suctioning d/c planning possible placement found Evidence of left lower lobe pneumonia, also previously demonstrated Gastrostomy in good position Mild diastasis of the rectus abdominis musculature again demonstrated Retrosacral decubitus changes, better depicted on prior exam which included the pelvis Small hiatal hernia with evidence of trace gastroesophageal reflux Discussed with GI. Recommend GJ family still pending decision (3) Feeding by G-tube Assessment & Plan: DAILY ESTIMATED NEEDS: Needs based on Pulmonary, wounds, bedbound/ 61kg adj 25-30 kcals/kg 7812-1625 total kcals 1.25-2 g protein/kg 76-122 g total protein 25-30 mL/kg 8878-5222 total fluid mLs NUTRITION DIAGNOSIS: * Increased kcal/prot needs R/T wound healing as evidenced by BL buttocks and sacral wound photos, refer to WC eval. * Swallowing difficulty R/T respiratory status as evidenced by pt on T-collar, now back the vent, PEG dep. CURRENT TF:Glucerna 1.5 @ 25ml/hr x 24 hrs - currently HELD d/t emesis ENTERAL NUTRITION RECOMMENDATIONS: Glucerna 1.5 @ 45ml/hr x 24 hrs to provide 1080ml, 1620kcal, 89g prot, 820ml free water - As medically able, rec to increase goal rate to 45ml/hr x24 hrs to meet 100% est kcal/prot needs - HOB over 30 degrees - Water flush of 170ml q 6 hrs * W/ continued regurgitation/ emesis, rec Osmolite 1.5 for GI tolerance. Rec goal of 45ml/hr to provide: 1080ml, 1620 kcal, 68g pro, 823ml free H20. * Add Prosource 1 pack daily to provide additional 11g pro. ADDITIONAL RECOMMENDATIONS: 1) Weekly weights 2) Wound healing: Add Cristian 1pkt BID w/ good TF tolerance + MVI x1 daily 3) Monitor lytes, replete as needed 4) Monitor BGs closely, need for NISS (wnl) 5) Monitor TF tolerance: rec Tf change as above if not (4) Chronic vegetative state Assessment & Plan: incontinence of urine and stool. can soil dressings. nurses doing great job with monitoring and changing prn (5) Leukocytosis Walter Madera Apr 01, 2019 14:57
--- NOTE | 2019-04-01 15:36 | NUR ---
NURSE NOTES: Patient is tolerating feeding well, Tube feeding shows no residuals, increased rate to 15cc/hr. Will continue to monitor.
--- NOTE | 2019-04-01 17:00 | NUR ---
NURSE NOTES: Called Dr Mitchell for clarification of TF change. Per MD, Glucerna is the possible culprit for the TF clog to JT despite the flushes. The TFs were changed to Vital AF to GT with good success. Will continue with Q4 free water flushes.
--- NOTE | 2019-04-01 17:13 | NUR ---
NURSE NOTES: Gave bed bath to patient, patient tolerated well, oral and tracheal suctioning done on patient, O2 Saturation at 100%. Will continue to monitor.
--- NOTE | 2019-04-01 19:15 | NUR ---
HAND-OFF: Report given to Patti PAEZ.
--- NOTE | 2019-04-01 20:00 | NUR ---
NURSE NOTES: received report from moses rn pt awake and nonverbal does not follows command lower extremities stiff trach shiley 6 -t-piece 28 0/0fio2 02 sat 100 o/o [id number] tube feeding no residual reposition and suction
[2019-04-01] MEDS: Dyna-Hex 2% Top Sol 2oz TOPIC SCH (20:30)
--- NOTE | 2019-04-01 22:00 | NUR ---
NURSE NOTES: reposition and suction no acute distress noted
[2019-04-02] VITALS (24 sets, daily range): BP systolic 116–173; BP diastolic 46–96
--- NOTE | 2019-04-02 | NUR ---
NURSE NOTES: pt NPO AFTER MN FOR EGD IN AM REPOSITION AND SUCTION
--- NOTE | 2019-04-02 02:00 | NUR ---
NURSE NOTES: ASLEEP NO ACUTE RESP DISTRESS NOTED
[2019-04-02] MEDS: Metoclopramide 10mg/2ml Inj IVP SCH ×4 (02:18→20:24)
[2019-04-02] MEDS: D5 1/2NS 1,000 ML IV SCH ×3 (02:58→23:19)
[2019-04-02] MEDS: Albuterol/Ipratropium 3ml neb HHN SCH ×6 (03:31→22:58)
--- NOTE | 2019-04-02 04:00 | NUR ---
NURSE NOTES: COMPLETE BED BATH DONE ORAL CARE AND BACK CARE DONE REPOSITION SUCTION
[2019-04-02 04:37] LABS: BASOPHILS % (AUTO) 1.1 % (0.0-2.0); EOSINOPHILS % (AUTO) 7.7 % (0.0-3.0); HEMOGLOBIN 8.4 G/DL (12.0-16.0); LYMPHOCYTES % (AUTO) 35.4 % (20.0-45.0); MEAN CORPUSCULAR VOLUME 88 FL (80-99); MONOCYTES % (AUTO) 5.7 % (1.0-10.0); NEUTROPHILS % (AUTO) 50.2 % (45.0-75.0); PLATELET COUNT 225 K/UL (150-450); RED BLOOD COUNT 2.94 M/UL (4.20-5.40); RED CELL DISTRIBUTION WIDTH 15.7 % (11.6-14.8); WHITE BLOOD COUNT 7.1 K/UL (4.8-10.8)
[2019-04-02 05:19] LABS: ALANINE AMINOTRANSFERASE 31 U/L (12-78); ALBUMIN 2.9 G/DL (3.4-5.0); ALBUMIN/GLOBULIN RATIO 0.6 (1.0-2.7); ALKALINE PHOSPHATASE 94 U/L (46-116); ANION GAP 7 mmol/L (5-15); ASPARTATE AMINO TRANSFERASE 22 U/L (15-37); BILIRUBIN,TOTAL 0.2 MG/DL (0.2-1.0); BLOOD UREA NITROGEN 27 mg/dL (7-18); CALCIUM 9.2 MG/DL (8.5-10.1); CARBON DIOXIDE 29 MMOL/L (21-32); CHLORIDE 108 MMOL/L (98-107); CREATININE 0.9 MG/DL (0.55-1.30); POTASSIUM 4.1 MMOL/L (3.5-5.1); SODIUM 144 MMOL/L (136-145)
[2019-04-02 05:41] LABS: PHOSPHORUS 4.1 MG/DL (2.5-4.9)
--- NOTE | 2019-04-02 06:00 | NUR ---
NURSE NOTES: reposition and suction no acute distress noted npo after mn for endoscopy at 1100 am
--- NOTE | 2019-04-02 07:18 | NUR ---
HAND-OFF: Report given to annmarie mann using sbar.
--- NOTE | 2019-04-02 08:08 | Pulmonology Progress Note ---
Assessment/Plan Assessment/Plan Impression: history of Sepsis history of Pneumonia Trach, G tube, Hypertension, Cardiac disease, Dementia, Previous CVA, Seizure disorder, Respiratory failure with hypoxia Anemia, Sacral ulcer renal cyst chronic pulmonary congestion Plan respiratory care ongoing neb therapy to continue off vent and monitor oxygen as needed Monitor labs and protein levels aspiration precautions to continue polymicrobial infection noted Patient is a DNR. No CPR. ICU care reviewed hope to transfer to [place] if family agrees medications/laboratory data/nursing notes/ICU care reviewed in detail note reviewed and edited care discussed with RN and RT ICU time spent 35 minutes Subjective ROS Limited/Unobtainable: Yes Allergies: Coded Allergies: CODEINE (Verified Allergy, Unknown, HIVES, 09/15/09) Subjective respiratory care overnight noted events noted overnight ICU care reviewed still requires suctioning and RT care- but at baseline bed bound and obtunded family refusing transfer to lower level off vent findings reviewed and discussed ; imaging noted Objective Last 24 Hour Vital Signs Date Time Temp Pulse Resp B/P (MAP) Pulse Ox O2 Delivery O2 Flow Rate FiO2 04/02/19 07:17 64 20 100 T-Piece 5.0 28 78 20 100 04/02/19 07:05 100 T-Piece 5.0 28 04/02/19 07:00 63 17 168/71 (103) 99 63 04/02/19 06:00 76 20 163/55 (91) 92 76 04/02/19 05:00 98.5 83 22 151/76 (101) 100 59 04/02/19 04:00 T-piece 5.0 T-piece 5.0 04/02/19 04:00 28 04/02/19 04:00 55 04/02/19 04:00 67 19 152/59 (90) 100 04/02/19 03:33 82 20 100 T-Piece 5.0 28 65 20 100 04/02/19 03:00 67 17 143/63 (89) 100 04/02/19 02:00 60 18 120/46 (70) 100 04/02/19 01:30 70 25 100 04/02/19 01:15 68 18 100 04/02/19 01:00 71 20 138/69 (92) 100 04/02/19 00:44 100 T-Piece 5.0 28 04/02/19 00:00 98.4 69 20 134/80 (98) 100 04/02/19 00:00 T-piece 5.0 T-piece 5.0 04/02/19 00:00 65 04/02/19 00:00 28 04/01/19 23:32 75 20 100 T-Piece 5.0 28 78 20 100 04/01/19 23:00 71 17 128/45 (72) 100 04/01/19 22:00 77 19 102/48 (66) 98 04/01/19 21:00 79 20 149/72 (97) 100 04/01/19 20:00 T-piece 5.0 T-piece 5.0 04/01/19 20:00 78 04/01/19 20:00 97.8 76 20 174/52 (92) 100 04/01/19 20:00 28 04/01/19 19:59 100 T-Piece 5.0 28 04/01/19 19:59 80 18 100 T-Piece 5.0 28 70 14 98 04/01/19 19:00 75 19 99/54 (69) 99 04/01/19 18:00 69 18 154/37 (76) 100 04/01/19 17:00 71 20 141/55 (83) 100 04/01/19 16:00 T-piece 5.0 T-piece 5.0 04/01/19 16:00 97.5 70 18 132/57 (82) 100 04/01/19 16:00 28 04/01/19 15:53 72 04/01/19 15:21 95 17 100 T-Piece 5.0 28 100 16 100 04/01/19 15:00 80 19 146/64 (91) 100 04/01/19 14:00 74 21 139/61 (87) 100 04/01/19 13:58 100 T-Piece 5.0 28 04/01/19 13:00 69 20 148/56 (86) 100 04/01/19 12:00 98.2 70 19 142/56 (84) 100 04/01/19 12:00 28 04/01/19 12:00 T-piece 5.0 T-piece 5.0 04/01/19 11:55 79 04/01/19 11:00 76 21 141/63 (89) 100 04/01/19 10:55 77 19 100 T-Piece 5.0 28 76 21 100 04/01/19 10:00 82 21 140/62 (88) 100 04/01/19 09:00 82 20 135/58 (83) 100 Intake and Output 04/01/19 04/02/19 19:00 07:00 Intake Total 1256.66 ml 1325 ml Output Total 275 ml 690 ml Balance 981.66 ml 635 ml Free Water 50 ml IV Total 1146.66 ml 1200 ml Tube Feeding 110 ml 75 ml Output Urine Total 275 ml 690 ml Objective WDWN NAD contracted off vent reduced breath sounds bilaterally with some rhonchi [id number] without MRG NABS nontender no HSM no CC trace edema nonfocal nonverbal trach and gt reviewed and edited Laboratory Tests 04/02/19 03:15: White Blood Count 7.1, Red Blood Count 2.94L, Hemoglobin 8.4L, Hematocrit 26.0L , Mean Corpuscular Volume 88, Mean Corpuscular Hemoglobin 28.5, Mean Corpuscular Hemoglobin Concent 32.2, Red Cell Distribution Width 15.7H, Platelet Count 225, Mean Platelet Volume 7.2, Neutrophils (%) (Auto) 50.2, Lymphocytes (%) (Auto) 35.4, Monocytes (%) (Auto) 5.7, Eosinophils (%) (Auto) 7.7H, Basophils (%) (Auto) 1.1, Sodium Level 144, Potassium Level 4.1, Chloride Level 108H, Carbon Dioxide Level 29, Anion Gap 7, Blood Urea Nitrogen 27H, Creatinine 0.9, Estimat Glomerular Filtration Rate , Glucose Level 117H, Uric Acid 6.0, Calcium Level 9.2, Phosphorus Level 4.1, Magnesium Level 2.0, Total Bilirubin 0.2, Aspartate Amino Transf (AST/SGOT) 22, Alanine Aminotransferase ( ALT/SGPT) 31, Alkaline Phosphatase 94, C-Reactive Protein, Quantitative 1.2H, Pro-B-Type Natriuretic Peptide 71, Total Protein 8.0, Albumin 2.9L, Globulin 5.1 , Albumin/Globulin Ratio 0.6L Current Medications Medications (Trade) Dose Ordered Sig/Maicol Route PRN Reason Start Time Stop Time Status Last Admin Dose Admin Acetaminophen (Tylenol) 650 mg Q6H PRN GT Mild Pain/Temp > 100.5 03/23/19 15:15 04/22/19 15:14 03/23/19 19:09 Albuterol/ Ipratropium (Albuterol/ Ipratropium) 3 ml Q4HRT HHN 03/30/19 19:00 04/04/19 18:59 04/02/19 07:05 Atropine Sulfate (Atropine Opth Adriana) 2 drop TID SL 03/07/19 09:00 04/06/19 08:59 04/01/19 17:43 Chlorhexidine Gluconate (Cesilia-Hex 2%) 1 applic DAILY@2000 TOPIC 03/12/19 20:00 04/11/19 19:59 04/01/19 20:30 Dextrose/Sodium Chloride 1,000 ml @ 100 mls/hr Q10H IV 03/31/19 21:00 04/30/19 20:59 04/02/19 02:58 Heparin Sodium (Porcine) (Heparin 5000 units/ml) 5,000 units EVERY 12 HOURS SUBQ 04/01/19 10:00 05/01/19 09:59 04/01/19 20:33 Hydralazine HCl (Apresoline) 10 mg Q4H PRN IV For High Blood Pressure 03/12/19 09:00 04/11/19 08:59 03/18/19 18:17 Lansoprazole (Prevacid) 30 mg Q12HR GT 03/29/19 09:00 04/24/19 20:59 04/01/19 20:30 Metoclopramide HCl (Reglan) 5 mg Q6H IVP 03/24/19 20:00 04/23/19 19:59 04/02/19 02:18 Ondansetron HCl (Zofran) 4 mg Q4H PRN IVP Nausea & Vomiting 03/18/19 18:15 04/17/19 18:14 03/21/19 08:27 Amaury Chan MD Apr 02, 2019 08:08
[2019-04-02] MEDS: Heparin 5000 units/ml inj SUBQ SCH ×2 (08:30→20:37)
--- NOTE | 2019-04-02 08:44 | Nephrology Progress Note ---
Assessment/Plan Problem List: (1) Acute renal failure (ARF) Assessment: Cr stable (2) Chronic respiratory failure (3) Anemia (4) Sepsis Assessment Acute renal failure Respiratory failure - Trach Low Mag- Low k , Low Na Anemia UTI / Sepsis Proteinuria / HypoAlbuminemia high Trigs Sz decubs bed bound DNR Plan now has JT bolus Albumin as needed K and Mag and Phos supplement as needed Hydrate as needed Urine studies avoid Nephrotoxics mag K Phos supplements as needed monitor renal parameters Subjective ROS Limited/Unobtainable: Yes Objective Objective Last 24 Hour Vital Signs Date Time Temp Pulse Resp B/P (MAP) Pulse Ox O2 Delivery O2 Flow Rate FiO2 04/02/19 07:17 64 20 100 T-Piece 5.0 28 78 20 100 04/02/19 07:05 100 T-Piece 5.0 28 04/02/19 07:00 63 17 168/71 (103) 99 63 04/02/19 06:00 76 20 163/55 (91) 92 76 04/02/19 05:00 98.5 83 22 151/76 (101) 100 59 04/02/19 04:00 T-piece 5.0 T-piece 5.0 04/02/19 04:00 28 04/02/19 04:00 55 04/02/19 04:00 67 19 152/59 (90) 100 04/02/19 03:33 82 20 100 T-Piece 5.0 28 65 20 100 04/02/19 03:00 67 17 143/63 (89) 100 04/02/19 02:00 60 18 120/46 (70) 100 04/02/19 01:30 70 25 100 04/02/19 01:15 68 18 100 04/02/19 01:00 71 20 138/69 (92) 100 04/02/19 00:44 100 T-Piece 5.0 28 04/02/19 00:00 98.4 69 20 134/80 (98) 100 04/02/19 00:00 T-piece 5.0 T-piece 5.0 04/02/19 00:00 65 04/02/19 00:00 28 04/01/19 23:32 75 20 100 T-Piece 5.0 78 20 100 04/01/19 23:00 71 17 128/45 (72) 100 04/01/19 22:00 77 19 102/48 (66) 98 04/01/19 21:00 79 20 149/72 (97) 100 04/01/19 20:00 T-piece 5.0 T-piece 5.0 04/01/19 20:00 78 04/01/19 20:00 97.8 76 20 174/52 (92) 100 04/01/19 20:00 28 04/01/19 19:59 100 T-Piece 5.0 28 04/01/19 19:59 80 18 100 T-Piece 5.0 28 70 14 98 04/01/19 19:00 75 19 99/54 (69) 99 04/01/19 18:00 69 18 154/37 (76) 100 04/01/19 17:00 71 20 141/55 (83) 100 04/01/19 16:00 T-piece 5.0 T-piece 5.0 04/01/19 16:00 97.5 70 18 132/57 (82) 100 04/01/19 16:00 28 04/01/19 15:53 72 04/01/19 15:21 95 17 100 T-Piece 5.0 28 100 16 100 04/01/19 15:00 80 19 146/64 (91) 100 04/01/19 14:00 74 21 139/61 (87) 100 04/01/19 13:58 100 T-Piece 5.0 28 04/01/19 13:00 69 20 148/56 (86) 100 04/01/19 12:00 98.2 70 19 142/56 (84) 100 04/01/19 12:00 28 04/01/19 12:00 T-piece 5.0 T-piece 5.0 04/01/19 11:55 79 04/01/19 11:00 76 21 141/63 (89) 100 04/01/19 10:55 77 19 100 T-Piece 5.0 28 76 21 100 04/01/19 10:00 82 21 140/62 (88) 100 04/01/19 09:00 82 20 135/58 (83) 100 Intake and Output 04/01/19 04/02/19 19:00 07:00 Intake Total 1256.66 ml 1325 ml Output Total 275 ml 690 ml Balance 981.66 ml 635 ml Free Water 50 ml IV Total 1146.66 ml 1200 ml Tube Feeding 110 ml 75 ml Output Urine Total 275 ml 690 ml Laboratory Tests 04/02/19 03:15: White Blood Count 7.1, Red Blood Count 2.94L, Hemoglobin 8.4L, Hematocrit 26.0L , Mean Corpuscular Volume 88, Mean Corpuscular Hemoglobin 28.5, Mean Corpuscular Hemoglobin Concent 32.2, Red Cell Distribution Width 15.7H, Platelet Count 225, Mean Platelet Volume 7.2, Neutrophils (%) (Auto) 50.2, Lymphocytes (%) (Auto) 35.4, Monocytes (%) (Auto) 5.7, Eosinophils (%) (Auto) 7.7H, Basophils (%) (Auto) 1.1, Sodium Level 144, Potassium Level 4.1, Chloride Level 108H, Carbon Dioxide Level 29, Anion Gap 7, Blood Urea Nitrogen 27H, Creatinine 0.9, Estimat Glomerular Filtration Rate , Glucose Level 117H, Uric Acid 6.0, Calcium Level 9.2, Phosphorus Level 4.1, Magnesium Level 2.0, Total Bilirubin 0.2, Aspartate Amino Transf (AST/SGOT) 22, Alanine Aminotransferase ( ALT/SGPT) 31, Alkaline Phosphatase 94, C-Reactive Protein, Quantitative 1.2H, Pro-B-Type Natriuretic Peptide 71, Total Protein 8.0, Albumin 2.9L, Globulin 5.1 , Albumin/Globulin Ratio 0.6L Height (Feet): 5 Height (Inches): 3.00 Weight (Pounds): 120 General Appearance: no apparent distress EENT: other - trach to O2 Respiratory/Chest: decreased breath sounds Abdomen: distended Objective no change Eric Cortez MD Apr 02, 2019 08:44
--- NOTE | 2019-04-02 09:57 | Infectious Diseases Prog Note ---
Assessment/Plan Assessment/Plan A 1. Providencia & Klebsiella pneumonia treated 2. respiratory failure 3. hypertension 4. CVA 5. dementia 6. sacral decubitus ulcer 7. rectal VRE colonization 8. Anemia 9. Proteus UTI 10. Acute renal failure 11. Leukocytosis resolved P 1.Observe off antibiotic 2. Frequent suctioning 3. Remove PICC line before discharge Subjective ROS Limited/Unobtainable: Yes Constitutional: Denies: fever Allergies: Coded Allergies: CODEINE (Verified Allergy, Unknown, HIVES, 09/15/09) Objective Vital Signs Last 24 Hour Vital Signs Date Time Temp Pulse Resp B/P (MAP) Pulse Ox O2 Delivery O2 Flow Rate FiO2 04/02/19 07:17 64 20 100 T-Piece 5.0 28 78 20 100 04/02/19 07:05 100 T-Piece 5.0 28 04/02/19 07:00 63 17 168/71 (103) 99 63 04/02/19 06:00 76 20 163/55 (91) 92 76 04/02/19 05:00 98.5 83 22 151/76 (101) 100 59 04/02/19 04:00 T-piece 5.0 T-piece 5.0 04/02/19 04:00 28 04/02/19 04:00 55 04/02/19 04:00 67 19 152/59 (90) 100 04/02/19 03:33 82 20 100 T-Piece 5.0 28 65 20 100 04/02/19 03:00 67 17 143/63 (89) 100 04/02/19 02:00 60 18 120/46 (70) 100 04/02/19 01:30 70 25 100 04/02/19 01:15 68 18 100 04/02/19 01:00 71 20 138/69 (92) 100 04/02/19 00:44 100 T-Piece 5.0 28 04/02/19 00:00 98.4 69 20 134/80 (98) 100 04/02/19 00:00 T-piece 5.0 T-piece 5.0 04/02/19 00:00 65 04/02/19 00:00 28 04/01/19 23:32 75 20 100 T-Piece 5.0 28 78 20 100 04/01/19 23:00 71 17 128/45 (72) 100 04/01/19 22:00 77 19 102/48 (66) 98 04/01/19 21:00 79 20 149/72 (97) 100 04/01/19 20:00 T-piece 5.0 T-piece 5.0 04/01/19 20:00 78 04/01/19 20:00 97.8 76 20 174/52 (92) 100 04/01/19 20:00 28 04/01/19 19:59 100 T-Piece 5.0 28 04/01/19 19:59 80 18 100 T-Piece 5.0 28 70 14 98 04/01/19 19:00 75 19 99/54 (69) 99 04/01/19 18:00 69 18 154/37 (76) 100 04/01/19 17:00 71 20 141/55 (83) 100 04/01/19 16:00 T-piece 5.0 T-piece 5.0 04/01/19 16:00 97.5 70 18 132/57 (82) 100 04/01/19 16:00 28 04/01/19 15:53 72 04/01/19 15:21 95 17 100 T-Piece 5.0 28 100 16 100 04/01/19 15:00 80 19 146/64 (91) 100 04/01/19 14:00 74 21 139/61 (87) 100 04/01/19 13:58 100 T-Piece 5.0 28 04/01/19 13:00 69 20 148/56 (86) 100 04/01/19 12:00 98.2 70 19 142/56 (84) 100 04/01/19 12:00 28 04/01/19 12:00 T-piece 5.0 T-piece 5.0 04/01/19 11:55 79 04/01/19 11:00 76 21 141/63 (89) 100 04/01/19 10:55 77 19 100 T-Piece 5.0 28 76 21 100 04/01/19 10:00 82 21 140/62 (88) 100 Height (Feet): 5 Height (Inches): 3.00 Weight (Pounds): 120 General Appearance: no acute distress HEENT: status post trach Respiratory/Chest: lungs clear, other - on T bar Cardiovascular: normal rate, other - R arm PICC line Extremities: no edema Neurologic/Psychiatric: aphasia Musculoskeletal: atrophy Laboratory Tests Test 04/02/19 03:15 White Blood Count 7.1 K/UL (4.8-10.8) Red Blood Count 2.94 M/UL (4.20-5.40) L Hemoglobin 8.4 G/DL (12.0-16.0) L Hematocrit 26.0 % (37.0-47.0) L Mean Corpuscular Volume 88 FL (80-99) Mean Corpuscular Hemoglobin 28.5 PG (27.0-31.0) Mean Corpuscular Hemoglobin Concent 32.2 G/DL (32.0-36.0) Red Cell Distribution Width 15.7 % (11.6-14.8) H Platelet Count 225 K/UL (150-450) Mean Platelet Volume 7.2 FL (6.5-10.1) Neutrophils (%) (Auto) 50.2 % (45.0-75.0) Lymphocytes (%) (Auto) 35.4 % (20.0-45.0) Monocytes (%) (Auto) 5.7 % (1.0-10.0) Eosinophils (%) (Auto) 7.7 % (0.0-3.0) H Basophils (%) (Auto) 1.1 % (0.0-2.0) Sodium Level 144 MMOL/L (136-145) Potassium Level 4.1 MMOL/L (3.5-5.1) Chloride Level 108 MMOL/L (98-107) H Carbon Dioxide Level 29 MMOL/L (21-32) Anion Gap 7 mmol/L (5-15) Blood Urea Nitrogen 27 mg/dL (7-18) H Creatinine 0.9 MG/DL (0.55-1.30) Estimat Glomerular Filtration Rate mL/min (>60) Glucose Level 117 MG/DL (74-106) H Uric Acid 6.0 MG/DL (2.6-7.2) Calcium Level 9.2 MG/DL (8.5-10.1) Phosphorus Level 4.1 MG/DL (2.5-4.9) Magnesium Level 2.0 MG/DL (1.8-2.4) Total Bilirubin 0.2 MG/DL (0.2-1.0) Aspartate Amino Transf (AST/SGOT) 22 U/L (15-37) Alanine Aminotransferase (ALT/SGPT) 31 U/L (12-78) Alkaline Phosphatase 94 U/L (46-116) C-Reactive Protein, Quantitative 1.2 mg/dL (0.00-0.90) H Pro-B-Type Natriuretic Peptide 71 pg/mL (0-125) Total Protein 8.0 G/DL (6.4-8.2) Albumin 2.9 G/DL (3.4-5.0) L Globulin 5.1 g/dL Albumin/Globulin Ratio 0.6 (1.0-2.7) L Current Medications Medications (Trade) Dose Ordered Sig/Maicol Route PRN Reason Start Time Stop Time Status Last Admin Dose Admin Acetaminophen (Tylenol) 650 mg Q6H PRN GT Mild Pain/Temp > 100.5 03/23/19 15:15 04/22/19 15:14 03/23/19 19:09 Albuterol/ Ipratropium (Albuterol/ Ipratropium) 3 ml Q4HRT HHN 03/30/19 19:00 04/04/19 18:59 04/02/19 07:05 Atropine Sulfate (Atropine Opth Adriana) 2 drop TID SL 03/07/19 09:00 04/06/19 08:59 04/02/19 08:30 Chlorhexidine Gluconate (Cesilia-Hex 2%) 1 applic DAILY@2000 TOPIC 03/12/19 20:00 04/11/19 19:59 04/01/19 20:30 Dextrose/Sodium Chloride 1,000 ml @ 100 mls/hr Q10H IV 03/31/19 21:00 04/30/19 20:59 04/02/19 02:58 Heparin Sodium (Porcine) (Heparin 5000 units/ml) 5,000 units EVERY 12 HOURS SUBQ 04/01/19 10:00 05/01/19 09:59 04/01/19 20:33 Hydralazine HCl (Apresoline) 10 mg Q4H PRN IV For High Blood Pressure 03/12/19 09:00 04/11/19 08:59 03/18/19 18:17 Lansoprazole (Prevacid) 30 mg Q12HR GT 03/29/19 09:00 04/24/19 20:59 04/02/19 08:30 Metoclopramide HCl (Reglan) 5 mg Q6H IVP 03/24/19 20:00 04/23/19 19:59 04/02/19 08:31 Ondansetron HCl (Zofran) 4 mg Q4H PRN IVP Nausea & Vomiting 03/18/19 18:15 04/17/19 18:14 03/21/19 08:27 Chauncey Liriano MD Apr 02, 2019 09:57
--- NOTE | 2019-04-02 10:33 | NUR ---
NURSE NOTES: Patient asleep, no acute distress, still noted with large amount secretion clear and foaming.Suctioned as tolerated. HOB elevated to prevent aspiration.Patient turned and repositioned, kept clean and comfortable.Call light within easy reach.Will continue monitoring.
[2019-04-02] MEDS ORDERED: Propofol 200mg/20ml IV ONE (11:00)
--- NOTE | 2019-04-02 11:20 | General Progress Note ---
Assessment/Plan Status: stable, progressing Assessment/Plan: Assessment - N/V - resolved with G --> J conversion - occluded J port - constipation - Elevated Alk phos / LFT - CT negative - abd U/S negative - check hepatitis serologies - negative - Anemia with OB (-) stools - Resp failure, s/p Trach - dysphagia, s/p PEG --> s/p GT change--> GJ tube - OBS, vegetative obtunded unresponsive state, bedbound with contracted extremities, - h/o minor GJ tube site irritation - poor Prognosis Recommendations - laxative PRN - antibiotic ointment to GJT site PRN - aspiration precautions - elevate HOB - Endoscopy with GJ tube replacement today Subjective Allergies: Coded Allergies: CODEINE (Verified Allergy, Unknown, HIVES, 09/15/09) Subjective above noted NPO for EGD no BM recorded for few days Objective Last 24 Hour Vital Signs Date Time Temp Pulse Resp B/P (MAP) Pulse Ox O2 Delivery O2 Flow Rate FiO2 04/02/19 11:00 69 19 171/52 (91) 100 63 04/02/19 10:49 76 26 100 T-Piece 5.0 28 79 24 100 04/02/19 10:00 69 19 157/58 (91) 100 63 04/02/19 09:00 66 19 154/64 (94) 100 63 04/02/19 08:00 98.3 63 20 159/71 (100) 98 63 04/02/19 08:00 28 04/02/19 08:00 66 04/02/19 07:17 64 20 100 T-Piece 5.0 28 78 20 100 04/02/19 07:05 100 T-Piece 5.0 28 04/02/19 07:00 63 17 168/71 (103) 99 63 04/02/19 06:00 76 20 163/55 (91) 92 76 04/02/19 05:00 98.5 83 22 151/76 (101) 100 59 04/02/19 04:00 T-piece 5.0 T-piece 5.0 04/02/19 04:00 28 04/02/19 04:00 55 04/02/19 04:00 67 19 152/59 (90) 100 04/02/19 03:33 82 20 100 T-Piece 5.0 28 65 20 100 04/02/19 03:00 67 17 143/63 (89) 100 04/02/19 02:00 60 18 120/46 (70) 100 04/02/19 01:30 70 25 100 04/02/19 01:15 68 18 100 04/02/19 01:00 71 20 138/69 (92) 100 04/02/19 00:44 100 T-Piece 5.0 28 04/02/19 00:00 98.4 69 20 134/80 (98) 100 04/02/19 00:00 T-piece 5.0 T-piece 5.0 04/02/19 00:00 65 04/02/19 00:00 28 04/01/19 23:32 75 20 100 T-Piece 5.0 28 78 20 100 04/01/19 23:00 71 17 128/45 (72) 100 04/01/19 22:00 77 19 102/48 (66) 98 04/01/19 21:00 79 20 149/72 (97) 100 04/01/19 20:00 T-piece 5.0 T-piece 5.0 04/01/19 20:00 78 04/01/19 20:00 97.8 76 20 174/52 (92) 100 04/01/19 20:00 28 04/01/19 19:59 100 T-Piece 5.0 28 04/01/19 19:59 80 18 100 T-Piece 5.0 28 70 14 98 04/01/19 19:00 75 19 99/54 (69) 99 04/01/19 18:00 69 18 154/37 (76) 100 04/01/19 17:00 71 20 141/55 (83) 100 04/01/19 16:00 T-piece 5.0 T-piece 5.0 04/01/19 16:00 97.5 70 18 132/57 (82) 100 04/01/19 16:00 28 04/01/19 15:53 72 04/01/19 15:21 95 17 100 T-Piece 5.0 28 100 16 100 04/01/19 15:00 80 19 146/64 (91) 100 04/01/19 14:00 74 21 139/61 (87) 100 04/01/19 13:58 100 T-Piece 5.0 28 04/01/19 13:00 69 20 148/56 (86) 100 04/01/19 12:00 98.2 70 19 142/56 (84) 100 04/01/19 12:00 28 04/01/19 12:00 T-piece 5.0 T-piece 5.0 04/01/19 11:55 79 Intake and Output 04/01/19 04/02/19 19:00 07:00 Intake Total 1256.66 ml 1325 ml Output Total 275 ml 690 ml Balance 981.66 ml 635 ml Free Water 50 ml IV Total 1146.66 ml 1200 ml Tube Feeding 110 ml 75 ml Output Urine Total 275 ml 690 ml Laboratory Tests 04/02/19 03:15: White Blood Count 7.1, Red Blood Count 2.94L, Hemoglobin 8.4L, Hematocrit 26.0L , Mean Corpuscular Volume 88, Mean Corpuscular Hemoglobin 28.5, Mean Corpuscular Hemoglobin Concent 32.2, Red Cell Distribution Width 15.7H, Platelet Count 225, Mean Platelet Volume 7.2, Neutrophils (%) (Auto) 50.2, Lymphocytes (%) (Auto) 35.4, Monocytes (%) (Auto) 5.7, Eosinophils (%) (Auto) 7.7H, Basophils (%) (Auto) 1.1, Sodium Level 144, Potassium Level 4.1, Chloride Level 108H, Carbon Dioxide Level 29, Anion Gap 7, Blood Urea Nitrogen 27H, Creatinine 0.9, Estimat Glomerular Filtration Rate , Glucose Level 117H, Uric Acid 6.0, Calcium Level 9.2, Phosphorus Level 4.1, Magnesium Level 2.0, Total Bilirubin 0.2, Aspartate Amino Transf (AST/SGOT) 22, Alanine Aminotransferase ( ALT/SGPT) 31, Alkaline Phosphatase 94, C-Reactive Protein, Quantitative 1.2H, Pro-B-Type Natriuretic Peptide 71, Total Protein 8.0, Albumin 2.9L, Globulin 5.1 , Albumin/Globulin Ratio 0.6L Height (Feet): 5 Height (Inches): 3.00 Weight (Pounds): 120 Objective Debilitated AA woman non-verbal, obtunded NCAT (+) trach coarse BS RR obese abd, (+) GJT no edema (+) contractured extremities Celio Vaughan MD Apr 02, 2019 11:20
--- NOTE | 2019-04-02 11:24 | Pre-Procedure Note/Attestation ---
Pre-Procedure Note/Attestation Complete Prior to Procedure Planned Procedure: not applicable Procedure Narrative: Endoscopy with gastrojejunostomy change and possible hemostasis Indications for Procedure Pre-Operative Diagnosis: vomiting, tube feeding intolerance Attestation I attest that I discussed the nature of the procedure; its benefits; risks and complications; and alternatives (and the risks and benefits of such alternatives ), prior to the procedure, with the patient's legal operations support representative. I attest that, if there was a reasonable possibility of needing a blood transfusion, the patient's legal operations support representative was given the [facility] standardized written summary, pursuant to the [place] Blood Safety Act ([place] Health and Safety Code # 1645, as amended ). I attest that I re-evaluated the patient just prior to the surgery and that there has been no change in the patient's H&P, except as documented below: Celio Vaughan MD Apr 02, 2019 11:24
--- NOTE | 2019-04-02 11:29 | NUR ---
RESPIRATORY NOTE: placed on vent on SIMV rate 16 with PS 10 due to bedside procedure and verbally ordered per anesthesiologist.
--- NOTE | 2019-04-02 11:33 | NUR ---
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 98.3 HR 63 RR 20 B/P 159/71 T-PIECE 28% BUN 27 IS: IVF D5NS @ 100ML/HR REGLAN IV ALB HHN HEPARIN SUBC ICU STATUS
--- NOTE | 2019-04-02 11:57 | Anethesia Preoperative Eval ---
Anesthesia Pre-op PMH/ROS General Date of Evaluation: Apr 02, 2019 Time of Evaluation: 10:50 Anesthesiologist: Yulia ASA Score: ASA 4 Mallampati Score Class I : Soft palate, uvula, fauces, pillars visible Class II: Soft palate, uvula, fauces visible Class III: Soft palate, base of uvula visible Class IV: Only hard plate visible Mallampati Classification: Class III - tracheostomy in place Surgeon: Paula Diagnosis: malfunction of feeding tube Surgical Procedure: EGD feeding tube replacement Anesthesia History: none Family History: no anesthesia problems Allergies: Coded Allergies: CODEINE (Verified Allergy, Unknown, HIVES, 09/15/09) Patient NPO?: Yes NPO Date: Mar 20, 2019 NPO Time: 00:00 Past Medical History Cardiovascular: Reports: HTN; Denies: CAD, CO, valve dz, arrhythmia, other Pulmonary: Reports: other - h/o respiratory failure; Denies: asthma, COPD, MALINA Gastrointestinal/Genitourinary: Reports: GERD, CRI, other - dysphagia Neurologic/Psychiatric: Reports: dementia, CVA; Denies: depression/anxiety, TIA, other Endocrine: Reports: hypothyroidism; Denies: DM, steroids, other HEENT: Denies: cataract (L), cataract (R), glaucoma, TOGIAK (L), TOGIAK (R), other Hematology/Immune: Reports: anemia; Denies: DVT, bleeding disorder, other Musculoskeletal/Integumentary: Reports: other - contracted PMH Narrative: as above PSxH Narrative: see H&P Anesthesia Pre-op Phys. Exam Physician Exam Last Vital Signs Date Time Temp Pulse Resp B/P (MAP) Pulse Ox O2 Delivery O2 Flow Rate FiO2 04/02/19 11:00 69 19 171/52 (91) 100 63 04/02/19 10:49 T-Piece 5.0 28 04/02/19 08:00 98.3 Constitutional: NAD Neurologic: other - unable to obtaine Cardiovascular: other - on T-bar Airway Exam Mallampati Score: Class III MO: limited Neck: short ROM: limited Teeth: missing Dentures: no upper, no lower Anesthesia Pre-op A/P Labs Hematology Test 04/02/19 03:15 White Blood Count 7.1 K/UL (4.8-10.8) Red Blood Count 2.94 M/UL (4.20-5.40) L Hemoglobin 8.4 G/DL (12.0-16.0) L Hematocrit 26.0 % (37.0-47.0) L Mean Corpuscular Volume 88 FL (80-99) Mean Corpuscular Hemoglobin 28.5 PG (27.0-31.0) Mean Corpuscular Hemoglobin Concent 32.2 G/DL (32.0-36.0) Red Cell Distribution Width 15.7 % (11.6-14.8) H Platelet Count 225 K/UL (150-450) Mean Platelet Volume 7.2 FL (6.5-10.1) Neutrophils (%) (Auto) 50.2 % (45.0-75.0) Lymphocytes (%) (Auto) 35.4 % (20.0-45.0) Monocytes (%) (Auto) 5.7 % (1.0-10.0) Eosinophils (%) (Auto) 7.7 % (0.0-3.0) H Basophils (%) (Auto) 1.1 % (0.0-2.0) Chemistry Test 04/02/19 03:15 Sodium Level 144 MMOL/L (136-145) Potassium Level 4.1 MMOL/L (3.5-5.1) Chloride Level 108 MMOL/L (98-107) H Carbon Dioxide Level 29 MMOL/L (21-32) Anion Gap 7 mmol/L (5-15) Blood Urea Nitrogen 27 mg/dL (7-18) H Creatinine 0.9 MG/DL (0.55-1.30) Estimat Glomerular Filtration Rate mL/min (>60) Glucose Level 117 MG/DL (74-106) H Uric Acid 6.0 MG/DL (2.6-7.2) Calcium Level 9.2 MG/DL (8.5-10.1) Phosphorus Level 4.1 MG/DL (2.5-4.9) Magnesium Level 2.0 MG/DL (1.8-2.4) Total Bilirubin 0.2 MG/DL (0.2-1.0) Aspartate Amino Transf (AST/SGOT) 22 U/L (15-37) Alanine Aminotransferase (ALT/SGPT) 31 U/L (12-78) Alkaline Phosphatase 94 U/L (46-116) C-Reactive Protein, Quantitative 1.2 mg/dL (0.00-0.90) H Pro-B-Type Natriuretic Peptide 71 pg/mL (0-125) Total Protein 8.0 G/DL (6.4-8.2) Albumin 2.9 G/DL (3.4-5.0) L Globulin 5.1 g/dL Albumin/Globulin Ratio 0.6 (1.0-2.7) L Risk Assessment & Plan Assessment: ASA 4 Plan: MAC Status Change Before Surgery: Greyson Kendrick MD Apr 02, 2019 11:57
--- NOTE | 2019-04-02 11:58 | Immediate Post-Op Evaluation ---
Immediate Post-Op Evalulation Immediate Post-Op Evalulation Procedure: EGD replacement of J tube Date of Evaluation: Apr 02, 2019 Time of Evaluation: 11:57 IV Fluids: 150 Blood Products: none Estimated Blood Loss: min Urinary Output: none Blood Pressure Systolic: 116 Blood Pressure Diastolic: 72 Pulse Rate: 86 Respiratory Rate: 20 O2 Sat by Pulse Oximetry: 98 Temperature (Fahrenheit): 97.6 Pain Score (1-10): 1 Nausea: No Vomiting: No Complications none Patient Status: reacts, ventilated, none Hydration Status: adequate Greyson Bender MD Apr 02, 2019 11:58
--- NOTE | 2019-04-02 12:00 | 48 Hour Post Anesthesia Eval ---
Post Anesthesia Evaluation Procedure: EGD replacement of J tube Date of Evaluation: Apr 02, 2019 Time of Evaluation: 12:55 Blood Pressure Systolic: 148 0: 76 Pulse Rate: 86 Respiratory Rate: 20 Temperature (Fahrenheit): 97.6 O2 Sat by Pulse Oximetry: 98 Airway: other - trach Nausea: No Vomiting: No Pain Intensity: 1 Hydration Status: adequate Cardiopulmonary Status: stable Mental Status/LOC: patient returned to baseline Follow-up Care/Observations: n/a Post-Anesthesia Complications: none Follow-up care needed: N/A Greyson Bender MD Apr 02, 2019 12:00
--- NOTE | 2019-04-02 12:06 | NUR ---
NURSE NOTES: Endoscopy done and tolerate well procedure.Started on Vital AF 1.2 as ordered through J-T.Placement checked and line patent.Tolerate well feeding at this time. Patient turned and repositioned,mouth care done.Suctioned as tolerated.Will continue close monitoring
--- NOTE | 2019-04-02 12:41 | NUR ---
RESPIRATORY NOTE: placed pt back on t-piece. no signs of resp distress noted.
--- NOTE | 2019-04-02 13:56 | Surgery Progress Note ---
Surgery Progress Note Subjective Additional Comments egd with gj as per GI labs improved exam stable Objective Last 24 Hour Vital Signs Date Time Temp Pulse Resp B/P (MAP) Pulse Ox O2 Delivery O2 Flow Rate FiO2 04/02/19 12:30 100 T-Piece 5.0 28 04/02/19 12:00 28 04/02/19 12:00 T-piece 5.0 T-piece 5.0 04/02/19 12:00 86 20 98 04/02/19 11:58 86 20 98 04/02/19 11:00 69 19 171/52 (91) 100 63 04/02/19 10:49 76 26 100 T-Piece 5.0 28 79 24 100 04/02/19 10:00 69 19 157/58 (91) 100 63 04/02/19 09:00 66 19 154/64 (94) 100 63 04/02/19 08:00 98.3 63 20 159/71 (100) 98 63 04/02/19 08:00 28 04/02/19 08:00 T-piece 5.0 T-piece 5.0 04/02/19 08:00 66 04/02/19 07:17 64 20 100 T-Piece 5.0 28 78 20 100 04/02/19 07:05 100 T-Piece 5.0 28 04/02/19 07:00 63 17 168/71 (103) 99 63 04/02/19 06:00 76 20 163/55 (91) 92 76 04/02/19 05:00 98.5 83 22 151/76 (101) 100 59 04/02/19 04:00 T-piece 5.0 T-piece 5.0 04/02/19 04:00 28 04/02/19 04:00 55 04/02/19 04:00 67 19 152/59 (90) 100 04/02/19 03:33 82 20 100 T-Piece 5.0 28 65 20 100 04/02/19 03:00 67 17 143/63 (89) 100 04/02/19 02:00 60 18 120/46 (70) 100 04/02/19 01:30 70 25 100 04/02/19 01:15 68 18 100 04/02/19 01:00 71 20 138/69 (92) 100 04/02/19 00:44 100 T-Piece 5.0 28 04/02/19 00:00 98.4 69 20 134/80 (98) 100 04/02/19 00:00 T-piece 5.0 T-piece 5.0 04/02/19 00:00 65 04/02/19 00:00 28 04/01/19 23:32 75 20 100 T-Piece 5.0 28 78 20 100 04/01/19 23:00 71 17 128/45 (72) 100 04/01/19 22:00 77 19 102/48 (66) 98 04/01/19 21:00 79 20 149/72 (97) 100 04/01/19 20:00 T-piece 5.0 T-piece 5.0 04/01/19 20:00 78 04/01/19 20:00 97.8 76 20 174/52 (92) 100 04/01/19 20:00 28 04/01/19 19:59 100 T-Piece 5.0 28 04/01/19 19:59 80 18 100 T-Piece 5.0 28 70 14 98 04/01/19 19:00 75 19 99/54 (69) 99 04/01/19 18:00 69 18 154/37 (76) 100 04/01/19 17:00 71 20 141/55 (83) 100 04/01/19 16:00 T-piece 5.0 T-piece 5.0 04/01/19 16:00 97.5 70 18 132/57 (82) 100 04/01/19 16:00 28 04/01/19 15:53 72 04/01/19 15:21 95 17 100 T-Piece 5.0 28 100 16 100 04/01/19 15:00 80 19 146/64 (91) 100 04/01/19 14:00 74 21 139/61 (87) 100 04/01/19 13:58 100 T-Piece 5.0 28 I&O Intake and Output 04/01/19 04/02/19 19:00 07:00 Intake Total 1256.66 ml 1325 ml Output Total 275 ml 690 ml Balance 981.66 ml 635 ml Free Water 50 ml IV Total 1146.66 ml 1200 ml Tube Feeding 110 ml 75 ml Output Urine Total 275 ml 690 ml Dressing: dry Wound: clean Cardiovascular: RSR Respiratory: clear, decreased breath sounds Abdomen: soft, present bowel sounds, non-distended Extremities: no tenderness, no cyanosis, other Laboratory Tests Test 04/02/19 03:15 White Blood Count 7.1 K/UL (4.8-10.8) Red Blood Count 2.94 M/UL (4.20-5.40) L Hemoglobin 8.4 G/DL (12.0-16.0) L Hematocrit 26.0 % (37.0-47.0) L Mean Corpuscular Volume 88 FL (80-99) Mean Corpuscular Hemoglobin 28.5 PG (27.0-31.0) Mean Corpuscular Hemoglobin Concent 32.2 G/DL (32.0-36.0) Red Cell Distribution Width 15.7 % (11.6-14.8) H Platelet Count 225 K/UL (150-450) Mean Platelet Volume 7.2 FL (6.5-10.1) Neutrophils (%) (Auto) 50.2 % (45.0-75.0) Lymphocytes (%) (Auto) 35.4 % (20.0-45.0) Monocytes (%) (Auto) 5.7 % (1.0-10.0) Eosinophils (%) (Auto) 7.7 % (0.0-3.0) H Basophils (%) (Auto) 1.1 % (0.0-2.0) Sodium Level 144 MMOL/L (136-145) Potassium Level 4.1 MMOL/L (3.5-5.1) Chloride Level 108 MMOL/L (98-107) H Carbon Dioxide Level 29 MMOL/L (21-32) Anion Gap 7 mmol/L (5-15) Blood Urea Nitrogen 27 mg/dL (7-18) H Creatinine 0.9 MG/DL (0.55-1.30) Estimat Glomerular Filtration Rate mL/min (>60) Glucose Level 117 MG/DL (74-106) H Uric Acid 6.0 MG/DL (2.6-7.2) Calcium Level 9.2 MG/DL (8.5-10.1) Phosphorus Level 4.1 MG/DL (2.5-4.9) Magnesium Level 2.0 MG/DL (1.8-2.4) Total Bilirubin 0.2 MG/DL (0.2-1.0) Aspartate Amino Transf (AST/SGOT) 22 U/L (15-37) Alanine Aminotransferase (ALT/SGPT) 31 U/L (12-78) Alkaline Phosphatase 94 U/L (46-116) C-Reactive Protein, Quantitative 1.2 mg/dL (0.00-0.90) H Pro-B-Type Natriuretic Peptide 71 pg/mL (0-125) Total Protein 8.0 G/DL (6.4-8.2) Albumin 2.9 G/DL (3.4-5.0) L Globulin 5.1 g/dL Albumin/Globulin Ratio 0.6 (1.0-2.7) L Plan Problems: (1) Sacral decubitus ulcer Assessment & Plan: This is a 83-year-old female with multiple medical committees that is currently admitted for medical care and management and identified to have multiple wounds requiring care. On admission patient noted to have a resolved sacral decubitus ulcer. Has had prior care and is well-healed at this time. Will ensure it does not open up again. Patient has a right ischial decubitus ulcer that is resolved. Scar intact and well formed. Will monitor to ensure it does not open up again. Patient has a left ischial decubitus ulcer that can be identified to be stage IV with palpable bone that has been resolving as noted by the periwound tissue and scar but open area approximately 1 cm x 1.5 cm few millimeters deep to bone identified. Unsure if this is been to be completely healed prior and has since opened or if has been healing at this level. No foul odor no drainage was unsure local wound care until healed Bilateral heels soft without signs of injury Resolving pressure injury L ischium(L)1.8cm x (W)1cm.Scattered biofilm at base of wound. Edges flat and adherent with surrounding hyperpigmentation. No odor or exudate noted. Sacrum is pale pink with surrounding hyperpigmentation. Hyperpigmentation R ischium with small sheared area centrally.No areas of erythema or exudate noted. Both heels are soft but blanchable. Skin Assessed under collar of trach and no evidence of skin breakdown noted. All wound Tx. are effective and continued as ordered. Pt ahs an APM/Belén mattress overlay and is being repositioned per protocols and per tolerance.No new skin concerns noted. Full thickness pressure injury L Ischium with small amt biofilm (L)1.8cm x (W) 1cm. Surrounding pink hyperpigmentation. No odor or exudate noted. [place] hyperpigmentation from previous wound noted to sacrum. Pt also noted to have Cat 2 Skin Tear dorsal L hand, L 5th metatarsal extending into palm of hand. 80% skin flap in situ.Both heels are dry firm and blanchable. No other skin concerns noted. R ischial wound has resolved. [place] epithelial with surrounding hyperpigmentation. from historical wound. Full thickness pressure injury L ischium. [place] granulation at base of wound. Borders are macerated with Surrounding hyperpigmentation.Small amt non-odorous serous exudate noted.(L)0.7cm x (W)0.8cm. Skin hyperpigmentation from historical wound noted to Sacrum. Small sheared area noted to sacrococcygeal area.(L)0.4cm x (W)0.3cm.Small amt sanguineous exudate noted. Reabsorbed blister with semi-detached dry necrotic cap noted to web space of L thumb and L index fingers extending into palm of L hand. No odor or exudate noted. Skin assessed under tracheal collar and no erythema or evidence of Skin Breakdown noted. NO new skin concerns noted . Good hand hygiene provided to both hands. R hand contracted and fisted. Fingernails trimmed. Wound care provided along with Primary nurse. Wound Tx continued as ordered. New order obtained from to apply Betadine to wound L hand Daily. Tx done as ordered. L hand wrapped with kerlix weaving kerlix between fingers to separate fingers. Moisture Barrier applied to sacrum ,R ischium. Each site covered with Optifoam drsg. Both lower ext washed and moisturized. Cavilon Skin Barrier applied to both heels.Each heel covered with Optifoam drsgs. Pt positioned with pillows and both heels off-loaded with pillow. Tx.Plan: Apply Betadine to wound L hand. Cover with Gauze and wrap with Kerlix Daily and prn. Cleanse L ischial wound with Saline. Apply Therahoney. Apply Moisture Barrier periwound. Cover with Optifoam drsgevery 3 days and prn. Apply Moisture Barrier Paste to R ischium and Sacrum. Cover each area with Optifoam drsg. Change every 3 days and prn. Apply Cavilon Skin Barrier to both heels. Cover each heel with Optifoam drsg. Change every 7 days and prn. APM/BELÉN Mattress overlay. Reposition at least every 2hours or as tolerated. Off-load heels with pillow. Cleanse Blister Dorsal and palm of L hand with saline. Versatel One Silicone Contact Layer(Applied). Apply Silvasorb Gel. Wrap with Kerlix Gauze.Change every 7 days and prn. Apply Moisture Barrier to sacrum. Cover with Optifoam drsg. Change every 3 days and prn. Cleanse L ischial wound with saline. Apply Therahoney. Apply Moisture Barrier Paste periwound. Cover with Optifoam drsg. Change every 3 days and prn. Apply Cavilon Skin Barrier to both heels. Cover each heel with Optifoam drsg. Change every 7 days and prn. APM/BELÉN Mattress overlay. Reposition at least every 2hours or as tolerated. Off-load heels with pillow. Nutritional optimization We will monitor follow with recommendations cont with above upon d/c (2) Sepsis Assessment & Plan: IV abx as per ID trend labs improving wounds unlikely etiology likely respiratory imaging noted and okay abnormal lft's stable PICC on Abx in ICU for desaturation CXR with consolidation cont with frequent suctioning d/c planning g j via GI daughter wants close attention to wounds and management to ensure healing Evidence of left lower lobe pneumonia, also previously demonstrated Gastrostomy in good position Mild diastasis of the rectus abdominis musculature again demonstrated Retrosacral decubitus changes, better depicted on prior exam which included the pelvis Small hiatal hernia with evidence of trace gastroesophageal reflux Discussed with GI. Recommend GJ family still pending decision (3) Feeding by G-tube Assessment & Plan: DAILY ESTIMATED NEEDS: Needs based on Pulmonary, wounds, bedbound/ 61kg adj 25-30 kcals/kg 9821-7426 total kcals 1.25-2 g protein/kg 76-122 g total protein 25-30 mL/kg 1500-4562 total fluid mLs NUTRITION DIAGNOSIS: * Increased kcal/prot needs R/T wound healing as evidenced by BL buttocks and sacral wound photos, refer to eval. * Swallowing difficulty R/T respiratory status as evidenced by pt on T-collar, s/p G-J conversion CURRENT TF:Glucerna 1.5 @ 50ml/hr x 24 hrs ENTERAL NUTRITION RECOMMENDATIONS: Glucerna 1.5 @ 50ml/hr x 24 hrs to provide 1200ml, 1800 kcal, 99g pro, 911ml free H2O - Maintain at current rate as tolerated to meet 100% est needs - HOB over 30 degrees - INCREASE water flush of 170ml q 6 hrs ADDITIONAL RECOMMENDATIONS: 1) RE-calibrate bedscale wt: fluctuating daily wts (108#-136# last 6 days) 2) Wound healing: Add Cristian 1pkt BID w/ continued good TF tolerance. 3) Increase water flushes, monitor for signs of water deficits 4) Monitor BGs closely, need for NISS -> now w/ improved BGs 5) Monitor for continued good TF tolerance 6) Monitor K : elev K on 03/25, s/p Kdur BID, now dc'ed. (4) Chronic vegetative state Assessment & Plan: incontinence of urine and stool. can soil dressings. nurses doing great job with monitoring and changing prn (5) Leukocytosis Walter Madera Apr 02, 2019 13:56
[2019-04-02] MEDS ORDERED: NS 275ml ONE (14:54)
[2019-04-02] MEDS ORDERED: Sterile Water Irrig 1000ml IRRIG ONE (14:54)
[2019-04-02] MEDS ORDERED: D5 1/2NS 1000ml IV ONE (14:54)
[2019-04-02] MEDS ORDERED: NS 500ML ONE (14:54)
--- NOTE | 2019-04-02 16:24 | NUR ---
NURSE NOTES: Turned and repositioned, HOB elevated to prevent aspiration.Tolerated well feeding. Daughter at bedside and update given.Will continue monitor
--- NOTE | 2019-04-02 18:05 | NUR ---
NURSE NOTES: Turned and repositioned.Mouth care done,suctioned as tolerated.HOB elevated to prevent aspiration.Will continue to monitor
--- NOTE | 2019-04-02 19:35 | NUR ---
RESPIRATORY NOTE: Received pt on 28% Cool Aerosol via T-Piece. Pt is trach-dependent w/ a cuffed, Shiley 6 XLT tube, cuff is currently deflated. Pt asleep/responds to stimuli. B/S flory. Rhonchi, sxn small to moderate amounts of thick/frothy, white to pale-yellow secretions. Vent on standby at bedside, plugged into red outlet. Ambubag at bedside. Pt resting comfortably, in no apparent distress at this time. Will continue to monitor pt.
--- NOTE | 2019-04-02 19:43 | NUR ---
NURSE NOTES: Received patient from JEANNINE Bautista. Pt is in bed, aaox0, vss, no acute distress, patient on monitoring specialist. Family member at bed side. J-tube and G-tube instructions noted. Pt on t-piece 5L, j-tube Vital AF 1.2 feeding at goal, and pt using purewick. PICC on right upper arm double lumen. Bed at its lowest position, call light in reach and x3 bed rails are up. Will continue to monitor.
--- NOTE | 2019-04-02 19:49 | NUR ---
HAND-OFF: Report given to JEANNINE Elaine.
[2019-04-02] MEDS: Dyna-Hex 2% Top Sol 2oz TOPIC SCH (20:24)
[2019-04-02] MEDS ORDERED: Sorbitol Solution UD 30ml ORAL SCH (20:30)
--- NOTE | 2019-04-02 22:00 | NUR ---
NURSE NOTES: Patient's daughter at bedside. Education on tube feeding given and daughter verbalized understanding. Daughter will seek out MD to answer more of her questions.
--- NOTE | 2019-04-02 22:15 | NUR ---
NURSE NOTES: Pt tolerating tx well with no acute distress. Daughter left ICU for the night.
[2019-04-03] VITALS (24 sets, daily range): BP systolic 94–150; BP diastolic 37–66
--- NOTE | 2019-04-03 00:29 | NUR ---
NURSE NOTES: Patient in bed sleeping well. Patient wakes when repositioned, but sleeps soon after. No acute distress. Will continue to monitor.
[2019-04-03] MEDS: Metoclopramide 10mg/2ml Inj IVP SCH ×4 (02:23→19:54)
[2019-04-03] MEDS: Albuterol/Ipratropium 3ml neb HHN SCH ×5 (03:31→18:51)
--- NOTE | 2019-04-03 05:54 | NUR ---
NURSE NOTES: Patient has had continuous liquid bowl movements since 0200 today. All linen and wound dressing changed. Will continue to clean and monitor.
--- NOTE | 2019-04-03 06:19 | NUR ---
NURSE NOTES: Patient rested throughout the night. Patient had large frothy secretions often during the shift. Suction was needed to control secretions.
--- NOTE | 2019-04-03 07:17 | NUR ---
HAND-OFF: Report given to JEANNINE Miller.
--- NOTE | 2019-04-03 07:30 | NUR ---
NURSE NOTES: LATE ENTRY: RECEIVED REPOT FROM Rachel ARANDA PT NON VERBAL, NO TRACKING, OPENS EYES SPONTANEOUSLY. ABNORMAL FLEXION TO PAIN. PUPILS SLUGGISH 3MM. HYPOACTIVE GAG REFLEX. TRACH DEPENDENT SHILEY 6. T-PIECE 28%, 5L. VS: HR 86, BP 141/57, SP02 100, RR 23. TRACH DRESSING DRY AND INTACT. ORAL SECRETIONS MINIMAL. YELLOW AND FROTHY. RHONCHI BILATERAL LOBES. ABDOMEN ROUND, BOWEL SOUNDS HYPOACTIVE. RECTAL TUBE IN PLACE, NO DRAINAGE NOTED. G-TUBE TO GRAVITY AND J-TUBE RUNNING VITAL A.F 1.2 RUNNING AT 65ML/HR. PER MD ORDER 75ML PER PORT Q4HR. PUREWICK IN PLACE DRAINING YELLOW URINE. CAP REFILL <3SEC, SKIN -SEE ASSESSMENT, WARM TO TOUCH. AX TEMP 99.5. COOLING MEASURES PROVIDED. BILATERAL RADIAL PULSES BOUNDING AND PEDAL PULSES WEAK. NON PITTING EDEMA NOTED OF LOWER EXTREMITIES. PICC JOSY RUNNING D5 1/2NS AT 100ML/HR.
--- NOTE | 2019-04-03 08:08 | Pulmonology Progress Note ---
Assessment/Plan Assessment/Plan Impression: history of Sepsis history of Pneumonia Trach, G tube, Hypertension, Cardiac disease, Dementia, Previous CVA, Seizure disorder, Respiratory failure with hypoxia Anemia, Sacral ulcer renal cyst chronic pulmonary congestion Plan respiratory care same neb therapy to continue off vent and monitor oxygen as needed Monitor labs and protein levels aspiration precautions to continue polymicrobial infection noted Patient is a DNR. No CPR. ICU care reviewed all changes noted hope to transfer to [place] if family agrees medications/laboratory data/nursing notes/ICU care reviewed in detail note reviewed and edited care discussed with RN and RT ICU time spent 35 minutes Subjective ROS Limited/Unobtainable: Yes Allergies: Coded Allergies: CODEINE (Verified Allergy, Unknown, HIVES, 09/15/09) Subjective respiratory care reviewed events noted overnight ICU care reviewed bed bound and obtunded family refusing transfer to lower level off vent findings reviewed and discussed ; imaging noted Objective Last 24 Hour Vital Signs Date Time Temp Pulse Resp B/P (MAP) Pulse Ox O2 Delivery O2 Flow Rate FiO2 04/03/19 07:00 98.6 84 23 147/59 (88) 100 04/03/19 06:53 87 20 100 T-Piece 5.0 28 90 19 100 04/03/19 06:43 100 T-Piece 5.0 28 04/03/19 06:00 86 23 135/55 (81) 100 04/03/19 05:00 113 20 148/64 (92) 99 04/03/19 04:00 100 04/03/19 04:00 5.0 28 04/03/19 04:00 T-piece 5.0 T-piece 5.0 04/03/19 04:00 98.3 94 25 127/59 (81) 100 04/03/19 03:41 103 24 100 T-Piece 5.0 28 04/03/19 03:31 112 26 99 T-Piece 5.0 28 04/03/19 03:00 100 25 96/46 (63) 100 04/03/19 02:00 108 30 122/61 (81) 97 04/03/19 01:15 100 T-Piece 5.0 28 04/03/19 01:00 97.8 97 26 122/49 (73) 100 04/03/19 00:00 T-piece 5.0 T-piece 5.0 04/03/19 00:00 93 04/03/19 00:00 94 24 123/52 (75) 100 04/02/19 23:08 94 23 100 T-Piece 5.0 28 04/02/19 23:00 113 29 144/73 (96) 98 04/02/19 22:58 91 26 100 T-Piece 5.0 28 04/02/19 22:00 95 24 100 04/02/19 22:00 97.6 95 24 127/51 (76) 100 04/02/19 21:00 94 25 132/73 (92) 100 04/02/19 20:00 95 04/02/19 20:00 93 25 123/54 (77) 100 04/02/19 20:00 T-piece 5.0 T-piece 5.0 04/02/19 20:00 5.0 28 04/02/19 19:40 93 22 100 T-Piece 5.0 04/02/19 19:30 89 22 100 T-Piece 5.0 04/02/19 19:30 100 T-Piece 5.0 04/02/19 19:00 98.0 103 17 132/62 (85) 97 04/02/19 17:00 96 22 119/54 (75) 100 04/02/19 16:00 92 04/02/19 16:00 T-piece 5.0 T-piece 5.0 04/02/19 16:00 97.8 90 23 116/55 (75) 99 04/02/19 16:00 28 04/02/19 15:50 90 22 142/69 (93) 100 04/02/19 15:32 90 19 100 T-Piece 5.0 28 86 20 100 04/02/19 15:00 90 22 142/69 (93) 98 04/02/19 14:00 91 20 173/91 (118) 100 04/02/19 13:00 86 21 172/96 (121) 100 04/02/19 12:30 100 T-Piece 5.0 04/02/19 12:00 28 04/02/19 12:00 87 04/02/19 12:00 98.6 87 19 139/79 (99) 99 04/02/19 12:00 T-piece 5.0 T-piece 5.0 04/02/19 12:00 86 20 98 04/02/19 11:58 86 20 98 04/02/19 11:00 69 19 171/52 (91) 100 63 04/02/19 10:49 76 26 100 T-Piece 5.0 28 79 24 100 04/02/19 10:00 69 19 157/58 (91) 100 63 04/02/19 09:00 66 19 154/64 (94) 100 63 Intake and Output 04/02/19 04/03/19 19:00 07:00 Intake Total 1490 ml 1908.86665 ml Output Total 300 ml Balance 1490 ml 1608.85188 ml Free Water 235 ml IV Total 800 ml 668.40801 ml Tube Feeding 390 ml 780 ml Other 300 ml 225 ml Output Urine Total 300 ml # Voids 1 # Bowel Movements 1 Objective WDWN NAD contracted off vent reduced breath sounds bilaterally with scattered rhonchi [id number] without MRG NABS nontender no HSM no CC trace edema nonfocal nonverbal trach and gt reviewed and edited Current Medications Medications (Trade) Dose Ordered Sig/Maicol Route PRN Reason Start Time Stop Time Status Last Admin Dose Admin Acetaminophen (Tylenol) 650 mg Q6H PRN GT Mild Pain/Temp > 100.5 03/23/19 15:15 04/22/19 15:14 03/23/19 19:09 Albuterol/ Ipratropium (Albuterol/ Ipratropium) 3 ml Q4HRT HHN 03/30/19 19:00 04/04/19 18:59 04/03/19 06:43 Atropine Sulfate (Atropine Opth Adriana) 2 drop TID SL 03/07/19 09:00 04/06/19 08:59 04/02/19 17:13 Chlorhexidine Gluconate (Cesilia-Hex 2%) 1 applic DAILY@2000 TOPIC 03/12/19 20:00 04/11/19 19:59 04/02/19 20:24 Dextrose/Sodium Chloride 1,000 ml @ 100 mls/hr Q10H IV 03/31/19 21:00 04/30/19 20:59 04/02/19 23:19 Heparin Sodium (Porcine) (Heparin 5000 units/ml) 5,000 units EVERY 12 HOURS SUBQ 04/01/19 10:00 05/01/19 09:59 04/02/19 20:37 Hydralazine HCl (Apresoline) 10 mg Q4H PRN IV For High Blood Pressure 03/12/19 09:00 04/11/19 08:59 03/18/19 18:17 Lansoprazole (Prevacid) 30 mg Q12HR GT 03/29/19 09:00 04/24/19 20:59 04/02/19 20:35 Metoclopramide HCl (Reglan) 5 mg Q6H IVP 03/24/19 20:00 04/23/19 19:59 04/03/19 02:23 Ondansetron HCl (Zofran) 4 mg Q4H PRN IVP Nausea & Vomiting 03/18/19 18:15 04/17/19 18:14 03/21/19 08:27 Amaury Chan MD Apr 03, 2019 08:08
[2019-04-03] MEDS: Heparin 5000 units/ml inj SUBQ SCH ×2 (08:53→20:59)
[2019-04-03] MEDS: Acetaminophen 650mg/20.3ml GT PRN (08:55)
[2019-04-03] MEDS: D5 1/2NS 1,000 ML IV SCH ×2 (09:00→19:00)
--- NOTE | 2019-04-03 09:48 | Nephrology Progress Note ---
Assessment/Plan Problem List: (1) Acute renal failure (ARF) Assessment: Cr stable (2) Chronic respiratory failure (3) Anemia (4) Sepsis Assessment Acute renal failure Respiratory failure - Trach Low Mag- Low k , Low Na Anemia UTI / Sepsis Proteinuria / HypoAlbuminemia high Trigs Sz decubs bed bound DNR Plan now has JT bolus Albumin as needed K and Mag and Phos supplement as needed Hydrate as needed Urine studies avoid Nephrotoxics mag K Phos supplements as needed monitor renal parameters Subjective ROS Limited/Unobtainable: Yes Objective Objective Last 24 Hour Vital Signs Date Time Temp Pulse Resp B/P (MAP) Pulse Ox O2 Delivery O2 Flow Rate FiO2 04/03/19 07:00 98.6 84 23 147/59 (88) 100 04/03/19 06:53 87 20 100 T-Piece 5.0 28 90 19 100 04/03/19 06:43 100 T-Piece 5.0 28 04/03/19 06:00 86 23 135/55 (81) 100 04/03/19 05:00 113 20 148/64 (92) 99 04/03/19 04:00 100 04/03/19 04:00 5.0 28 04/03/19 04:00 T-piece 5.0 T-piece 5.0 04/03/19 04:00 98.3 94 25 127/59 (81) 100 04/03/19 03:41 103 24 100 T-Piece 5.0 28 04/03/19 03:31 112 26 99 T-Piece 5.0 28 04/03/19 03:00 100 25 96/46 (63) 100 04/03/19 02:00 108 30 122/61 (81) 97 04/03/19 01:15 100 T-Piece 5.0 28 04/03/19 01:00 97.8 97 26 122/49 (73) 100 04/03/19 00:00 T-piece 5.0 T-piece 5.0 04/03/19 00:00 93 04/03/19 00:00 94 24 123/52 (75) 100 04/02/19 23:08 94 23 100 T-Piece 5.0 28 04/02/19 23:00 113 29 144/73 (96) 98 04/02/19 22:58 91 26 100 T-Piece 5.0 28 04/02/19 22:00 95 24 100 04/02/19 22:00 97.6 95 24 127/51 (76) 100 04/02/19 21:00 94 25 132/73 (92) 100 04/02/19 20:00 95 04/02/19 20:00 93 25 123/54 (77) 100 04/02/19 20:00 T-piece 5.0 T-piece 5.0 04/02/19 20:00 5.0 28 04/02/19 19:40 93 22 100 T-Piece 5.0 28 04/02/19 19:30 89 22 100 T-Piece 5.0 28 04/02/19 19:30 100 T-Piece 5.0 28 04/02/19 19:00 98.0 103 17 132/62 (85) 97 04/02/19 17:00 96 22 119/54 (75) 100 04/02/19 16:00 92 04/02/19 16:00 T-piece 5.0 T-piece 5.0 04/02/19 16:00 97.8 90 23 116/55 (75) 99 04/02/19 16:00 28 04/02/19 15:50 90 22 142/69 (93) 100 04/02/19 15:32 90 19 100 T-Piece 5.0 28 86 20 100 04/02/19 15:00 90 22 142/69 (93) 98 04/02/19 14:00 91 20 173/91 (118) 100 04/02/19 13:00 86 21 172/96 (121) 100 04/02/19 12:30 100 T-Piece 5.0 28 04/02/19 12:00 28 04/02/19 12:00 87 04/02/19 12:00 98.6 87 19 139/79 (99) 99 04/02/19 12:00 T-piece 5.0 T-piece 5.0 04/02/19 12:00 86 20 98 04/02/19 11:58 86 20 98 04/02/19 11:00 69 19 171/52 (91) 100 63 04/02/19 10:49 76 26 100 T-Piece 5.0 28 79 24 100 04/02/19 10:00 69 19 157/58 (91) 100 63 Intake and Output 04/02/19 04/03/19 19:00 07:00 Intake Total 1490 ml 1908.10790 ml Output Total 300 ml Balance 1490 ml 1608.70533 ml Free Water 235 ml IV Total 800 ml 668.37293 ml Tube Feeding 390 ml 780 ml Other 300 ml 225 ml Output Urine Total 300 ml # Voids 1 # Bowel Movements 1 Height (Feet): 5 Height (Inches): 3.00 Weight (Pounds): 124 General Appearance: no apparent distress EENT: other - trach Neck: other - trach to O2 Respiratory/Chest: decreased breath sounds Abdomen: distended Objective no change Eric Cortez MD Apr 03, 2019 09:48
--- NOTE | 2019-04-03 10:00 | NUR ---
NURSE NOTES: LATE ENTRY: MD ALEXIS HERE TO SEE PT. WAS INFORMED THAT PT HAS NO AM LABS, WILL CHOOSE LAB TIMES. NO NEW ORDERS AT THIS TIME.
--- NOTE | 2019-04-03 11:46 | NUR ---
NURSE NOTES: LATE ENTRY: MD Jm AMARO HERE TO SEE PT. INFORMED THAT PT HAS NO AM LABS. NO NEW ORDERS AT THIS TIME.
--- NOTE | 2019-04-03 11:51 | Infectious Diseases Prog Note ---
Assessment/Plan Assessment/Plan A 1. Providencia & Klebsiella pneumonia treated 2. respiratory failure 3. hypertension 4. CVA 5. dementia 6. sacral decubitus ulcer 7. rectal VRE colonization 8. Anemia 9. Proteus UTI 10. Acute renal failure 11. Leukocytosis resolved P 1.Observe off antibiotic 2. Frequent suctioning 3. Remove PICC line before discharge Subjective ROS Limited/Unobtainable: Yes Constitutional: Denies: fever Gastrointestinal/Abdominal: Reports: other - had EGD & J tube replacement yesterday Allergies: Coded Allergies: CODEINE (Verified Allergy, Unknown, HIVES, 09/15/09) Objective Vital Signs Last 24 Hour Vital Signs Date Time Temp Pulse Resp B/P (MAP) Pulse Ox O2 Delivery O2 Flow Rate FiO2 04/03/19 11:03 80 19 100 T-Piece 5.0 28 79 23 100 04/03/19 11:00 82 21 134/58 (83) 100 04/03/19 10:00 83 21 139/56 (83) 100 04/03/19 09:00 85 23 140/56 (84) 100 04/03/19 08:00 87 04/03/19 08:00 87 23 141/57 (85) 100 04/03/19 08:00 T-piece 5.0 T-piece 5.0 04/03/19 08:00 5.0 28 04/03/19 07:00 98.6 84 23 147/59 (88) 100 04/03/19 06:53 87 20 100 T-Piece 5.0 28 90 19 100 04/03/19 06:43 100 T-Piece 5.0 28 04/03/19 06:00 86 23 135/55 (81) 100 04/03/19 05:00 113 20 148/64 (92) 99 04/03/19 04:00 100 04/03/19 04:00 5.0 28 04/03/19 04:00 T-piece 5.0 T-piece 5.0 04/03/19 04:00 98.3 94 25 127/59 (81) 100 04/03/19 03:41 103 24 100 T-Piece 5.0 28 04/03/19 03:31 112 26 99 T-Piece 5.0 28 04/03/19 03:00 100 25 96/46 (63) 100 04/03/19 02:00 108 30 122/61 (81) 97 04/03/19 01:15 100 T-Piece 5.0 28 04/03/19 01:00 97.8 97 26 122/49 (73) 100 04/03/19 00:00 T-piece 5.0 T-piece 5.0 04/03/19 00:00 93 04/03/19 00:00 94 24 123/52 (75) 100 04/02/19 23:08 94 23 100 T-Piece 5.0 28 04/02/19 23:00 113 29 144/73 (96) 98 04/02/19 22:58 91 26 100 T-Piece 5.0 28 04/02/19 22:00 95 24 100 04/02/19 22:00 97.6 95 24 127/51 (76) 100 04/02/19 21:00 94 25 132/73 (92) 100 04/02/19 20:00 95 04/02/19 20:00 93 25 123/54 (77) 100 04/02/19 20:00 T-piece 5.0 T-piece 5.0 04/02/19 20:00 5.0 28 04/02/19 19:40 93 22 100 T-Piece 5.0 28 04/02/19 19:30 89 22 100 T-Piece 5.0 28 04/02/19 19:30 100 T-Piece 5.0 28 04/02/19 19:00 98.0 103 17 132/62 (85) 97 04/02/19 17:00 96 22 119/54 (75) 100 04/02/19 16:00 92 04/02/19 16:00 T-piece 5.0 T-piece 5.0 04/02/19 16:00 97.8 90 23 116/55 (75) 99 04/02/19 16:00 28 04/02/19 15:50 90 22 142/69 (93) 100 04/02/19 15:32 90 19 100 T-Piece 5.0 28 86 20 100 04/02/19 15:00 90 22 142/69 (93) 98 04/02/19 14:00 91 20 173/91 (118) 100 04/02/19 13:00 86 21 172/96 (121) 100 04/02/19 12:30 100 T-Piece 5.0 28 04/02/19 12:00 28 04/02/19 12:00 87 04/02/19 12:00 98.6 87 19 139/79 (99) 99 04/02/19 12:00 T-piece 5.0 T-piece 5.0 04/02/19 12:00 86 20 98 04/02/19 11:58 86 20 98 Height (Feet): 5 Height (Inches): 3.00 Weight (Pounds): 124 General Appearance: no acute distress HEENT: mucous membranes moist, status post trach Respiratory/Chest: lungs clear Cardiovascular: normal rate, other - R arm PICC line Abdomen: soft, non tender, other - J tube Extremities: no edema Neurologic/Psychiatric: aphasia Current Medications Medications (Trade) Dose Ordered Sig/Maicol Route PRN Reason Start Time Stop Time Status Last Admin Dose Admin Acetaminophen (Tylenol) 650 mg Q6H PRN GT Mild Pain/Temp > 100.5 03/23/19 15:15 04/22/19 15:14 04/03/19 08:55 Albuterol/ Ipratropium (Albuterol/ Ipratropium) 3 ml Q4HRT HHN 03/30/19 19:00 04/04/19 18:59 04/03/19 10:53 Atropine Sulfate (Atropine Opth Adriana) 2 drop TID SL 03/07/19 09:00 04/06/19 08:59 04/03/19 08:52 Chlorhexidine Gluconate (Cesilia-Hex 2%) 1 applic DAILY@2000 TOPIC 03/12/19 20:00 04/11/19 19:59 04/02/19 20:24 Dextrose/Sodium Chloride 1,000 ml @ 100 mls/hr Q10H IV 03/31/19 21:00 04/30/19 20:59 04/03/19 09:00 Heparin Sodium (Porcine) (Heparin 5000 units/ml) 5,000 units EVERY 12 HOURS SUBQ 04/01/19 10:00 05/01/19 09:59 04/02/19 20:37 Hydralazine HCl (Apresoline) 10 mg Q4H PRN IV For High Blood Pressure 03/12/19 09:00 04/11/19 08:59 03/18/19 18:17 Lansoprazole (Prevacid) 30 mg Q12HR GT 03/29/19 09:00 04/24/19 20:59 04/03/19 08:52 Metoclopramide HCl (Reglan) 5 mg Q6H IVP 03/24/19 20:00 04/23/19 19:59 04/03/19 08:52 Ondansetron HCl (Zofran) 4 mg Q4H PRN IVP Nausea & Vomiting 03/18/19 18:15 04/17/19 18:14 03/21/19 08:27 Chauncey Liriano MD Apr 03, 2019 11:51
--- NOTE | 2019-04-03 12:00 | NUR ---
NURSE NOTES: LATE ENTRY: PT IN BED, RESTING. NON VERBAL, OPENS EYES TO SHAKING. PUPILS SLUGGISH 3MM. TRACH DEPENDENT SHILEY 6. T-PIECE 28%, 5L. VS: HR 84, BP 150/57, SP02 100, RR 22. ORAL CARE PROVIDED, SECRETIONS SCANT. FROTHY. ABDOMEN ROUND, BOWEL SOUNDS HYPOACTIVE. RECTAL TUBE PUSHED OUT BY PT W/ FORMED STOOL, PASTY STOOL THEREAFTER. BROWN, MEDIUM AMOUNT WILL HOLD RECTAL TUBE AT THIS TIME. G-TUBE TO GRAVITY AND J-TUBE RUNNING VITAL A.F 1.2 RUNNING AT 65ML/HR. 75ML PER PORT PROVIDED. PUREWICK CHANGED AND RE[PLACED. DRAINING YELLOW URINE. CONTINUES TO BE WARM TO TOUCH. AX TEMP 99. COOLING MEASURES IN PLACE. BILATERAL RADIAL PULSES BOUNDING AND PEDAL PULSES WEAK. EXTREMITIES ELEVATED ON PILLOWS. PICC JOSY RUNNING D5 1/2NS AT 100ML/HR. CONTACT AND SZ PRECAUTIONS IN PLACE. BED ALARM ON SIDE RAILS X3. LOCKED AND IN LOW POSITION. WILL CONTINUE TO MONITOR PT.
--- NOTE | 2019-04-03 12:51 | NUR ---
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 98.6 HR 84 RR 23 B/P 147/59 T-COLLAR FIO2 28% IS: D5NS@ 100ML/HR REGLAN IV ALB INLINE TX ICU STATUS
--- NOTE | 2019-04-03 16:00 | NUR ---
NURSE NOTES: LATE ENTRY: PT IN BED, OPENS EYES TO SPONTANEOUSLY. PUPILS SLUGGISH 3MM. TRACH DEPENDENT SHILEY 6. T-PIECE 28%, 5L. VS: HR 98, BP 126/50, SP02 100, RR 22. ORAL HYGIENE PROVIDED. PT REPOSITIONED. G-TUBE TO GRAVITY AND J-TUBE RUNNING VITAL A.F 1.2 RUNNING AT 65ML/HR. 75ML FLUSH PER PORT PROVIDED. PUREWICK IN PLACE. EXTREMITIES ELEVATED ON PILLOWS. PICC JOSY RUNNING D5 1/2NS AT 100ML/HR. CONTACT AND SZ PRECAUTIONS IN PLACE. BED ALARM ON SIDE RAILS X3. LOCKED AND IN LOW POSITION. WILL CONTINUE TO MONITOR PT.
--- NOTE | 2019-04-03 17:23 | General Progress Note ---
Assessment/Plan Status: stable, progressing Assessment/Plan: Assessment - N/V - resolved with G --> J conversion - occluded J port - constipation - resolved - Elevated Alk phos / LFT - CT negative - abd U/S negative - check hepatitis serologies - negative - Anemia with OB (-) stools - Resp failure, s/p Trach - dysphagia, s/p PEG --> s/p GT change--> GJ tube - OBS, vegetative obtunded unresponsive state, bedbound with contracted extremities, - h/o minor GJ tube site irritation - poor Prognosis Recommendations - laxative PRN - antibiotic ointment to GJT site PRN - aspiration precautions - elevate HOB - J tube feeds - G tube drain Subjective Allergies: Coded Allergies: CODEINE (Verified Allergy, Unknown, HIVES, 09/15/09) Subjective above noted tolerating TF via J port (+) BM Objective Last 24 Hour Vital Signs Date Time Temp Pulse Resp B/P (MAP) Pulse Ox O2 Delivery O2 Flow Rate FiO2 04/03/19 17:00 95 19 99/40 (59) 100 04/03/19 16:00 81 04/03/19 16:00 94 23 126/50 (75) 100 04/03/19 15:19 85 23 100 T-Piece 5.0 28 81 22 100 04/03/19 15:00 99.5 79 23 131/45 (73) 100 04/03/19 14:00 80 23 146/51 (82) 100 04/03/19 13:00 89 21 150/57 (88) 100 04/03/19 12:30 100 T-Piece 5.0 28 04/03/19 12:00 5.0 28 04/03/19 12:00 T-piece 5.0 T-piece 5.0 04/03/19 12:00 86 04/03/19 12:00 88 24 142/55 (84) 100 04/03/19 11:03 80 19 100 T-Piece 5.0 28 79 23 100 04/03/19 11:00 82 21 134/58 (83) 100 04/03/19 10:00 83 21 139/56 (83) 100 04/03/19 09:00 85 23 140/56 (84) 100 04/03/19 08:00 87 04/03/19 08:00 87 23 141/57 (85) 100 04/03/19 08:00 T-piece 5.0 T-piece 5.0 04/03/19 08:00 5.0 28 04/03/19 07:00 98.6 84 23 147/59 (88) 100 04/03/19 06:53 87 20 100 T-Piece 5.0 28 90 19 100 04/03/19 06:43 100 T-Piece 5.0 28 04/03/19 06:00 86 23 135/55 (81) 100 04/03/19 05:00 113 20 148/64 (92) 99 04/03/19 04:00 100 04/03/19 04:00 5.0 28 04/03/19 04:00 T-piece 5.0 T-piece 5.0 04/03/19 04:00 98.3 94 25 127/59 (81) 100 04/03/19 03:41 103 24 100 T-Piece 5.0 28 04/03/19 03:31 112 26 99 T-Piece 5.0 28 04/03/19 03:00 100 25 96/46 (63) 100 04/03/19 02:00 108 30 122/61 (81) 97 04/03/19 01:15 100 T-Piece 5.0 28 04/03/19 01:00 97.8 97 26 122/49 (73) 100 04/03/19 00:00 T-piece 5.0 T-piece 5.0 04/03/19 00:00 93 04/03/19 00:00 94 24 123/52 (75) 100 04/02/19 23:08 94 23 100 T-Piece 5.0 28 04/02/19 23:00 113 29 144/73 (96) 98 04/02/19 22:58 91 26 100 T-Piece 5.0 28 04/02/19 22:00 95 24 100 04/02/19 22:00 97.6 95 24 127/51 (76) 100 04/02/19 21:00 94 25 132/73 (92) 100 04/02/19 20:00 95 04/02/19 20:00 93 25 123/54 (77) 100 04/02/19 20:00 T-piece 5.0 T-piece 5.0 04/02/19 20:00 5.0 28 04/02/19 19:40 93 22 100 T-Piece 5.0 28 04/02/19 19:30 89 22 100 T-Piece 5.0 28 04/02/19 19:30 100 T-Piece 5.0 04/02/19 19:00 98.0 103 17 132/62 (85) 97 Intake and Output 04/02/19 04/03/19 19:00 07:00 Intake Total 1490 ml 2008.84287 ml Output Total 300 ml Balance 1490 ml 1708.73212 ml Free Water 235 ml IV Total 800 ml 768.47732 ml Tube Feeding 390 ml 780 ml Other 300 ml 225 ml Output Urine Total 300 ml # Voids 1 # Bowel Movements 1 Height (Feet): 5 Height (Inches): 3.00 Weight (Pounds): 124 Objective Debilitated AA woman non-verbal, obtunded NCAT (+) trach coarse BS RR obese abd, (+) GJT no edema (+) contractured extremities Celio Vaughan MD Apr 03, 2019 17:23
--- NOTE | 2019-04-03 18:25 | General Progress Note ---
Assessment/Plan Problem List: (1) Seizure ICD Codes: R56.9 - Unspecified convulsions SNOMED: 87829239 (2) Anemia ICD Codes: D64.9 - Anemia, unspecified SNOMED: 772674534 Qualifiers: Qualified Codes: D64.9 - Anemia, unspecified (3) Sepsis ICD Codes: A41.9 - Sepsis, unspecified organism SNOMED: 18767351, 596917913 Qualifiers: Qualified Codes: A41.9 - Sepsis, unspecified organism (4) Respiratory failure with hypoxia ICD Codes: J96.91 - Respiratory failure, unspecified with hypoxia SNOMED: 70133203733836023 Qualifiers: Qualified Codes: J96.21 - Acute and chronic respiratory failure with hypoxia (5) HCAP (healthcare-associated pneumonia) ICD Codes: J18.9 - Pneumonia, unspecified organism SNOMED: 772724388, 674350584 (6) Sacral decubitus ulcer ICD Codes: L89.159 - Pressure ulcer of sacral region, unspecified stage SNOMED: 154633582 (7) HTN (hypertension) ICD Codes: I10 - Essential (primary) hypertension SNOMED: 15133458 (8) Chronic vegetative state ICD Codes: R40.3 - Persistent vegetative state SNOMED: 14076766 (9) Chronic respiratory failure ICD Codes: J96.10 - Chronic respiratory failure, unspecified whether with hypoxia or hypercapnia SNOMED: 84877164 (10) Limited mobility ICD Codes: Z74.09 - Other reduced mobility SNOMED: 6593613 Status: stable, progressing Assessment/Plan: vent as needed resp rx suctioning j tube feeds g port to [facility] sz rx monitor h/h dc planning Subjective ROS Limited/Unobtainable: Yes Constitutional: Reports: malaise, weakness HEENT: Reports: no symptoms Cardiovascular: Reports: no symptoms Respiratory: Reports: cough Gastrointestinal/Abdominal: Reports: no symptoms Genitourinary: Reports: no symptoms Neurologic/Psychiatric: Reports: pre-existing deficit, seizure Endocrine: Reports: no symptoms Hematologic/Lymphatic: Reports: anemia Allergies: Coded Allergies: CODEINE (Verified Allergy, Unknown, HIVES, 09/15/09) All Systems: reviewed and negative except above Subjective no events. stable on the vent, tolerating feeds, no fevers. no szs. Objective Last 24 Hour Vital Signs Date Time Temp Pulse Resp B/P (MAP) Pulse Ox O2 Delivery O2 Flow Rate FiO2 04/03/19 18:00 83 28 143/50 (81) 100 04/03/19 17:00 95 19 99/40 (59) 100 04/03/19 16:00 81 04/03/19 16:00 94 23 126/50 (75) 100 04/03/19 15:19 85 23 100 T-Piece 5.0 28 81 22 100 04/03/19 15:00 99.5 79 23 131/45 (73) 100 04/03/19 14:00 80 23 146/51 (82) 100 04/03/19 13:00 89 21 150/57 (88) 100 04/03/19 12:30 100 T-Piece 5.0 28 04/03/19 12:00 5.0 28 04/03/19 12:00 T-piece 5.0 T-piece 5.0 04/03/19 12:00 86 04/03/19 12:00 88 24 142/55 (84) 100 04/03/19 11:03 80 19 100 T-Piece 5.0 28 79 23 100 04/03/19 11:00 82 21 134/58 (83) 100 04/03/19 10:00 83 21 139/56 (83) 100 04/03/19 09:00 85 23 140/56 (84) 100 04/03/19 08:00 87 04/03/19 08:00 87 23 141/57 (85) 100 04/03/19 08:00 T-piece 5.0 T-piece 5.0 04/03/19 08:00 5.0 28 04/03/19 07:00 98.6 84 23 147/59 (88) 100 04/03/19 06:53 87 20 100 T-Piece 5.0 28 90 19 100 04/03/19 06:43 100 T-Piece 5.0 28 04/03/19 06:00 86 23 135/55 (81) 100 04/03/19 05:00 113 20 148/64 (92) 99 04/03/19 04:00 100 04/03/19 04:00 5.0 28 04/03/19 04:00 T-piece 5.0 T-piece 5.0 04/03/19 04:00 98.3 94 25 127/59 (81) 100 04/03/19 03:41 103 24 100 T-Piece 5.0 28 04/03/19 03:31 112 26 99 T-Piece 5.0 28 04/03/19 03:00 100 25 96/46 (63) 100 04/03/19 02:00 108 30 122/61 (81) 97 04/03/19 01:15 100 T-Piece 5.0 28 04/03/19 01:00 97.8 97 26 122/49 (73) 100 04/03/19 00:00 T-piece 5.0 T-piece 5.0 04/03/19 00:00 93 04/03/19 00:00 94 24 123/52 (75) 100 04/02/19 23:08 94 23 100 T-Piece 5.0 28 04/02/19 23:00 113 29 144/73 (96) 98 04/02/19 22:58 91 26 100 T-Piece 5.0 28 04/02/19 22:00 95 24 100 04/02/19 22:00 97.6 95 24 127/51 (76) 100 04/02/19 21:00 94 25 132/73 (92) 100 04/02/19 20:00 95 04/02/19 20:00 93 25 123/54 (77) 100 04/02/19 20:00 T-piece 5.0 T-piece 5.0 04/02/19 20:00 5.0 28 04/02/19 19:40 93 22 100 T-Piece 5.0 28 04/02/19 19:30 89 22 100 T-Piece 5.0 28 04/02/19 19:30 100 T-Piece 5.0 28 04/02/19 19:00 98.0 103 17 132/62 (85) 97 Intake and Output 04/02/19 04/03/19 19:00 07:00 Intake Total 1490 ml 2008.01937 ml Output Total 300 ml Balance 1490 ml 1708.30431 ml Free Water 235 ml IV Total 800 ml 768.93219 ml Tube Feeding 390 ml 780 ml Other 300 ml 225 ml Output Urine Total 300 ml # Voids 1 # Bowel Movements 1 Height (Feet): 5 Height (Inches): 3.00 Weight (Pounds): 124 Objective General Appearance: WD/WN, confused. on trach collar Neck: supple Cardiovascular: normal rate, regular rhythm Respiratory/Chest: chest wall non-tender, rhonchi - bilaterally(minimal) Abdomen: normal bowel sounds, non tender, soft, no organomegaly Edema: no edema noted Arm (L), no edema noted Arm (R), no edema noted Leg (L), no edema noted Leg (R), no edema noted Pedal (L), no edema noted Pedal (R), no edema noted Generalized Neurologic: disoriented, unresponsive, aphasia Irvin Beltrán MD Apr 03, 2019 18:25
--- NOTE | 2019-04-03 18:40 | NUR ---
NURSE NOTES: FAMILY AT BEDSIDE. NOTICED NEW FEEDING. AND PT SECRETIONS ARE LESS.
--- NOTE | 2019-04-03 19:46 | NUR ---
HAND-OFF: Report given to Onel PAEZ. pt in no acute distress.
[2019-04-03] MEDS: Dyna-Hex 2% Top Sol 2oz TOPIC SCH (19:54)
--- NOTE | 2019-04-03 20:15 | NUR ---
NURSE NOTES: LE:1950PM PT'S DAUGHTER AT BEDSIDE. PATIENT AWOKE, OPEN EYES TO NAME, DID NOT FOLLOW COMMANDS, RESPIRATION REGULAR, ON TRACH, FIO2 28% COOL AEROSOL T- PIECE, O2 SATURATION 100% NOTED, HEART RATE 80'S/MIN SINUS RHYTHM, ABDOMEN SOFT, NO BM STATUS, G-J TUBE INTACT AND PATENT, G TUBE DRAINING GRAVITY, ONGOING J TUBE FEEDING, VITAL AF 1.2 AT 65ML/HR, NO RESIDUE NOTED, TOLERATED FEEDING, NO N/V NOTED, KEPT HOB 30 DEGREES AND ASPIRATION PRECAUTION, VOID WITH PURE WICK, YELLOW URINE OUTED, PICC LINE TO RIGHT UPPER ARM, INTACT AND PATENT, KEPT SZ AND FALL PRECAUTION, ON P200 BED, MADE LOWER BED POSITION, ON BED ALARM AND LOCKED, CALL LIGHT WITHIN REACH BUT UNABLE TO USE STATUS, WILL CONTINUE TO MONITOR.
--- NOTE | 2019-04-03 22:00 | NUR ---
NURSE NOTES: le; REPOSITIONED, ORAL CARE WAS DONE, OPENED G TUBE DRAINING GRAVITY, YELLOW CLOUDY DISCHARGE OUTED.
[2019-04-04] VITALS (25 sets, daily range): BP systolic 93–158; BP diastolic 40–114
[2019-04-04] MEDS: Albuterol/Ipratropium 3ml neb HHN SCH ×5 (00:01→15:45)
--- NOTE | 2019-04-04 00:53 | NUR ---
NURSE NOTES: PATIENT ASLEEP STATUS, NO PAIN OR SOB NOTED, WILL CONTINUE TO MONITOR.
[2019-04-04] MEDS: Metoclopramide 10mg/2ml Inj IVP SCH ×3 (02:06→14:02)
--- NOTE | 2019-04-04 02:54 | NUR ---
NURSE NOTES: J TUBE FEEDING TOLERATED, NO N/V NOTED, ASLEEP STATUS, KEPT HOB 30 DEGREES, WILL CONTINUE PLAN OF CARE.
[2019-04-04] MEDS: D5 1/2NS 1,000 ML IV SCH (05:00)
--- NOTE | 2019-04-04 05:00 | NUR ---
NURSE NOTES: MORNING CARE AND ORAL CARE WAS DONE, NO BM STATUS.
--- NOTE | 2019-04-04 06:36 | NUR ---
NURSE NOTES: NO AACUTE DISTRESS NOTED AT THIS SHIFT.
--- NOTE | 2019-04-04 07:10 | NUR ---
HAND-OFF: Report given to JEANNINE BARNETT.
--- NOTE | 2019-04-04 07:30 | NUR ---
NURSE NOTES: LATE ENTRY: RECEIVED REPOT FROM Rachel AHUJA PT NON VERBAL, OPENS EYES SPONTANEOUSLY. ABNORMAL FLEXION TO PAIN. BILATERAL PUPILS 3MM SLUGGISH. TRACH DEPENDENT SHILEY 6. T-PIECE 28%, 5L. VS: HR 79, BP 112/41, SP02 100, RR 22. ORAL SECRETIONS YELLOW AND FROTHY. RHONCHI BILATERAL LOBES. ABDOMEN ROUND, BOWEL SOUNDS HYPOACTIVE. NO BM AT THIS TIME. G-TUBE TO GRAVITY AND COLLECTION AND J-TUBE RUNNING VITAL A.F 1.2 RUNNING AT 65ML/HR. FLUSHING 75ML PER PORT Q4HR. PUREWICK DRAINING YELLOW URINE. CAP REFILL <3SEC, SKIN -SEE ASSESSMENT. COOL TO TOUCH. AX TEMP 98.5. BILATERAL RADIAL PULSES BOUNDING AND PEDAL PULSES WEAK. PICC JOSY RUNNING D5 1/2NS AT 100ML/HR. CONTACT AND SZ PRECAUTIONS IN PLACE. BED LOCKED, IN LOWEST POSITION, SIDE RAILS X3. BED ALARM ON. WILL CONTINUE TO MONITOR PT.
[2019-04-04] MEDS: Heparin 5000 units/ml inj SUBQ SCH ×2 (09:00→20:47)
--- NOTE | 2019-04-04 09:49 | Pulmonology Progress Note ---
Assessment/Plan Assessment/Plan Impression: history of Sepsis history of Pneumonia Trach, G tube, Hypertension, Cardiac disease, Dementia, Previous CVA, Seizure disorder, Respiratory failure with hypoxia Anemia, Sacral ulcer renal cyst chronic pulmonary congestion Plan respiratory care same neb therapy to continue off vent and monitor oxygen as needed Monitor labs and protein levels aspiration precautions to continue polymicrobial infection noted Patient is a DNR. No CPR. ICU care reviewed all changes noted hope to transfer to [facility] if family agrees medications/laboratory data/nursing notes/ICU care reviewed in detail note reviewed and edited care discussed with RN and RT ICU time spent 35 minutes Subjective Allergies: Coded Allergies: CODEINE (Verified Allergy, Unknown, HIVES, 09/15/09) Subjective respiratory care reviewed events noted overnight ICU care reviewed bed bound and obtunded family refusing transfer to lower level off vent findings reviewed and discussed ; imaging noted Objective Last 24 Hour Vital Signs Date Time Temp Pulse Resp B/P (MAP) Pulse Ox O2 Delivery O2 Flow Rate FiO2 04/04/19 07:16 85 20 98 T-Piece 5.0 28 04/04/19 07:16 100 T-Piece 5.0 28 04/04/19 07:15 82 20 100 T-Piece 5.0 28 85 20 100 04/04/19 07:00 79 23 126/51 (76) 100 04/04/19 06:00 92 20 103/65 (78) 100 04/04/19 05:00 83 22 136/53 (80) 100 04/04/19 04:00 98.6 87 28 149/58 (88) 100 04/04/19 04:00 T-piece 5.0 T-piece 5.0 04/04/19 04:00 5.0 28 04/04/19 03:21 80 22 100 T-Piece 5.0 28 79 21 100 04/04/19 03:08 79 04/04/19 03:00 78 22 107/47 (67) 100 04/04/19 02:03 87 26 137/55 (82) 99 04/04/19 02:00 99 18 99 04/04/19 01:26 100 T-Piece 5.0 28 04/04/19 01:00 81 23 93/46 (62) 99 04/04/19 00:01 87 24 100 T-Piece 5.0 28 86 28 100 04/04/19 00:00 T-piece 5.0 T-piece 5.0 04/04/19 00:00 98.5 87 23 136/59 (84) 100 04/04/19 00:00 5.0 28 04/04/19 00:00 87 04/03/19 23:00 82 24 94/37 (56) 99 04/03/19 22:00 87 22 130/48 (75) 100 04/03/19 21:00 85 23 135/53 (80) 100 04/03/19 20:00 T-piece 5.0 T-piece 5.0 04/03/19 20:00 5.0 28 04/03/19 20:00 98.4 87 22 141/66 (91) 100 04/03/19 19:40 81 04/03/19 19:00 80 23 121/46 (71) 100 04/03/19 18:52 100 T-Piece 5.0 28 04/03/19 18:51 83 19 100 T-Piece 5.0 28 80 23 100 04/03/19 18:00 83 28 143/50 (81) 100 04/03/19 17:00 95 19 99/40 (59) 100 04/03/19 16:00 5.0 28 04/03/19 16:00 81 04/03/19 16:00 94 23 126/50 (75) 100 04/03/19 16:00 T-piece 5.0 T-piece 5.0 04/03/19 15:19 85 23 100 T-Piece 5.0 28 81 22 100 04/03/19 15:00 99.5 79 23 131/45 (73) 100 04/03/19 14:00 80 23 146/51 (82) 100 04/03/19 13:00 89 21 150/57 (88) 100 04/03/19 12:30 100 T-Piece 5.0 28 04/03/19 12:00 5.0 28 04/03/19 12:00 T-piece 5.0 T-piece 5.0 04/03/19 12:00 86 04/03/19 12:00 88 24 142/55 (84) 100 04/03/19 11:03 80 19 100 T-Piece 5.0 28 79 23 100 04/03/19 11:00 82 21 134/58 (83) 100 04/03/19 10:00 83 21 139/56 (83) 100 Intake and Output 04/03/19 04/04/19 19:00 07:00 Intake Total 1960 ml 2530 ml Output Total 470 ml 1550 ml Balance 1490 ml 980 ml Free Water 375 ml 225 ml IV Total 1000 ml 1300 ml Tube Feeding 585 ml 780 ml Other 225 ml Output Urine Total 470 ml 930 ml Gastric Drainage Total 120 ml Other 500 ml # Voids 200 # Bowel Movements 2 Objective WDWN NAD contracted off vent reduced breath sounds bilaterally with scattered rhonchi [id number] without MRG NABS nontender no HSM no CC trace edema nonfocal nonverbal trach and gt reviewed and edited Current Medications Medications (Trade) Dose Ordered Sig/Maicol Route PRN Reason Start Time Stop Time Status Last Admin Dose Admin Acetaminophen (Tylenol) 650 mg Q6H PRN GT Mild Pain/Temp > 100.5 03/23/19 15:15 04/22/19 15:14 04/03/19 08:55 Albuterol/ Ipratropium (Albuterol/ Ipratropium) 3 ml Q4HRT HHN 03/30/19 19:00 04/04/19 18:59 04/04/19 07:15 Atropine Sulfate (Atropine Opth Adriana) 2 drop TID SL 03/07/19 09:00 04/06/19 08:59 04/04/19 09:00 Chlorhexidine Gluconate (Cesilia-Hex 2%) 1 applic DAILY@2000 TOPIC 03/12/19 20:00 04/11/19 19:59 04/03/19 19:54 Dextrose/Sodium Chloride 1,000 ml @ 100 mls/hr Q10H IV 03/31/19 21:00 04/30/19 20:59 04/04/19 05:00 Heparin Sodium (Porcine) (Heparin 5000 units/ml) 5,000 units EVERY 12 HOURS SUBQ 04/01/19 10:00 05/01/19 09:59 04/03/19 20:59 Hydralazine HCl (Apresoline) 10 mg Q4H PRN IV For High Blood Pressure 03/12/19 09:00 04/11/19 08:59 03/18/19 18:17 Lansoprazole (Prevacid) 30 mg Q12HR GT 03/29/19 09:00 04/24/19 20:59 04/04/19 08:59 Metoclopramide HCl (Reglan) 5 mg Q6H IVP 03/24/19 20:00 04/23/19 19:59 04/04/19 08:59 Ondansetron HCl (Zofran) 4 mg Q4H PRN IVP Nausea & Vomiting 03/18/19 18:15 04/17/19 18:14 03/21/19 08:27 Amaury Chan MD Apr 04, 2019 09:49
--- NOTE | 2019-04-04 10:19 | NUR ---
NURSE NOTES: LATE ENTRY: MD HER HERE TO SEE PT. INFORMED ABOUT LAST LAB DRAW 04/02/19, D5 1/2 NS RUNNING AT 100ML/HR. RECEIVED ORDER TO PLACE AM LABS CMP, D/C D5 1/2 NS. NO ADDITIONAL ORDER.
--- NOTE | 2019-04-04 12:02 | NUR ---
NURSE NOTES: LATE ENTRY: PT RESTING, OPENS EYES SPONTANEOUSLY. TRACH DEPENDENT SHILEY 6. T-PIECE 28%, 5L. VS: HR 86, BP 148/114, SP02 100, RR 22. ORAL SECRETIONS YELLOW AND THIN. ONE LARGE BM, BROWN SOFT. G-TUBE TO GRAVITY AND COLLECTION AND J-TUBE RUNNING VITAL A.F 1.2 RUNNING AT 65ML/HR. FLUSHED 75ML PER PORT. PUREWICK DRAINING YELLOW URINE, PT CLEANED AND PUEWICK REPLACED. PT AFEBRILE. PICC JOSY TKO. CONTACT AND SZ PRECAUTIONS IN PLACE. BED LOCKED, IN LOWEST POSITION, SIDE RAILS X3. WILL CONTINUE TO MONITOR PT.
--- NOTE | 2019-04-04 12:09 | Nephrology Progress Note ---
Assessment/Plan Problem List: (1) Acute renal failure (ARF) Assessment: Cr stable (2) Chronic respiratory failure (3) Anemia (4) Sepsis Assessment Acute renal failure Respiratory failure - Trach Low Mag- Low k , Low Na Anemia UTI / Sepsis Proteinuria / HypoAlbuminemia high Trigs Sz decubs bed bound DNR Plan now has JT bolus Albumin as needed K and Mag and Phos supplement as needed Hydrate as needed Urine studies avoid Nephrotoxics mag K Phos supplements as needed monitor renal parameters Subjective ROS Limited/Unobtainable: Yes Objective Objective Last 24 Hour Vital Signs Date Time Temp Pulse Resp B/P (MAP) Pulse Ox O2 Delivery O2 Flow Rate FiO2 04/04/19 11:00 84 22 151/61 (91) 100 04/04/19 10:39 102 18 100 T-Piece 5.0 28 113 22 94 04/04/19 10:00 79 22 145/73 (97) 100 04/04/19 09:00 83 21 137/56 (83) 100 04/04/19 08:00 79 04/04/19 08:00 98.5 76 22 112/41 (64) 100 04/04/19 08:00 5.0 28 04/04/19 08:00 T-piece 5.0 T-piece 5.0 04/04/19 07:16 85 20 98 T-Piece 5.0 28 04/04/19 07:16 100 T-Piece 5.0 28 04/04/19 07:15 82 20 100 T-Piece 5.0 28 85 20 100 04/04/19 07:00 79 23 126/51 (76) 100 04/04/19 06:00 92 20 103/65 (78) 100 04/04/19 05:00 83 22 136/53 (80) 100 04/04/19 04:00 98.6 87 28 149/58 (88) 100 04/04/19 04:00 T-piece 5.0 T-piece 5.0 04/04/19 04:00 5.0 28 04/04/19 03:21 80 22 100 T-Piece 5.0 28 79 21 100 04/04/19 03:08 79 04/04/19 03:00 78 22 107/47 (67) 100 04/04/19 02:03 87 26 137/55 (82) 99 04/04/19 02:00 99 18 99 04/04/19 01:26 100 T-Piece 5.0 28 04/04/19 01:00 81 23 93/46 (62) 99 04/04/19 00:01 87 24 100 T-Piece 5.0 28 86 28 100 04/04/19 00:00 T-piece 5.0 T-piece 5.0 04/04/19 00:00 98.5 87 23 136/59 (84) 100 04/04/19 00:00 5.0 28 04/04/19 00:00 87 04/03/19 23:00 82 24 94/37 (56) 99 04/03/19 22:00 87 22 130/48 (75) 100 04/03/19 21:00 85 23 135/53 (80) 100 04/03/19 20:00 T-piece 5.0 T-piece 5.0 04/03/19 20:00 5.0 28 04/03/19 20:00 98.4 87 22 141/66 (91) 100 04/03/19 19:40 81 04/03/19 19:00 80 23 121/46 (71) 100 04/03/19 18:52 100 T-Piece 5.0 28 04/03/19 18:51 83 19 100 T-Piece 5.0 28 80 23 100 04/03/19 18:00 83 28 143/50 (81) 100 04/03/19 17:00 95 19 99/40 (59) 100 04/03/19 16:00 5.0 28 04/03/19 16:00 81 04/03/19 16:00 94 23 126/50 (75) 100 04/03/19 16:00 T-piece 5.0 T-piece 5.0 04/03/19 15:19 85 23 100 T-Piece 5.0 28 81 22 100 04/03/19 15:00 99.5 79 23 131/45 (73) 100 04/03/19 14:00 80 23 146/51 (82) 100 04/03/19 13:00 89 21 150/57 (88) 100 04/03/19 12:30 100 T-Piece 5.0 28 Intake and Output 04/03/19 04/04/19 19:00 07:00 Intake Total 2035 ml 2530 ml Output Total 470 ml 1550 ml Balance 1565 ml 980 ml Free Water 225 ml 225 ml IV Total 1000 ml 1300 ml Tube Feeding 585 ml 780 ml Other 225 ml 225 ml Output Urine Total 470 ml 930 ml Gastric Drainage Total 120 ml Other 500 ml # Voids 200 # Bowel Movements 2 Height (Feet): 5 Height (Inches): 3.00 Weight (Pounds): 112 General Appearance: no apparent distress EENT: other - trach to O2 Cardiovascular: normal rate Respiratory/Chest: decreased breath sounds Abdomen: distended Objective no change Eric Cortez MD Apr 04, 2019 12:09
--- NOTE | 2019-04-04 13:05 | NUR ---
NURSE NOTES: MD CABA HERE TO SEE PT. NO NEW ORDERS.
--- NOTE | 2019-04-04 13:08 | Surgery Progress Note ---
Surgery Progress Note Subjective Additional Comments no acute events Objective Last 24 Hour Vital Signs Date Time Temp Pulse Resp B/P (MAP) Pulse Ox O2 Delivery O2 Flow Rate FiO2 04/04/19 12:00 85 04/04/19 11:00 84 22 151/61 (91) 100 04/04/19 10:39 102 18 100 T-Piece 5.0 28 113 22 94 04/04/19 10:00 79 22 145/73 (97) 100 04/04/19 09:00 83 21 137/56 (83) 100 04/04/19 08:00 79 04/04/19 08:00 98.5 76 22 112/41 (64) 100 04/04/19 08:00 5.0 28 04/04/19 08:00 T-piece 5.0 T-piece 5.0 04/04/19 07:16 85 20 98 T-Piece 5.0 28 04/04/19 07:16 100 T-Piece 5.0 28 04/04/19 07:15 82 20 100 T-Piece 5.0 28 85 20 100 04/04/19 07:00 79 23 126/51 (76) 100 04/04/19 06:00 92 20 103/65 (78) 100 04/04/19 05:00 83 22 136/53 (80) 100 04/04/19 04:00 98.6 87 28 149/58 (88) 100 04/04/19 04:00 T-piece 5.0 T-piece 5.0 04/04/19 04:00 5.0 28 04/04/19 03:21 80 22 100 T-Piece 5.0 28 79 21 100 04/04/19 03:08 79 04/04/19 03:00 78 22 107/47 (67) 100 04/04/19 02:03 87 26 137/55 (82) 99 04/04/19 02:00 99 18 99 04/04/19 01:26 100 T-Piece 5.0 28 04/04/19 01:00 81 23 93/46 (62) 99 04/04/19 00:01 87 24 100 T-Piece 5.0 28 86 28 100 04/04/19 00:00 T-piece 5.0 T-piece 5.0 04/04/19 00:00 98.5 87 23 136/59 (84) 100 04/04/19 00:00 5.0 28 04/04/19 00:00 87 04/03/19 23:00 82 24 94/37 (56) 99 04/03/19 22:00 87 22 130/48 (75) 100 04/03/19 21:00 85 23 135/53 (80) 100 04/03/19 20:00 T-piece 5.0 T-piece 5.0 04/03/19 20:00 5.0 28 04/03/19 20:00 98.4 87 22 141/66 (91) 100 04/03/19 19:40 81 04/03/19 19:00 80 23 121/46 (71) 100 04/03/19 18:52 100 T-Piece 5.0 28 04/03/19 18:51 83 19 100 T-Piece 5.0 28 80 23 100 04/03/19 18:00 83 28 143/50 (81) 100 04/03/19 17:00 95 19 99/40 (59) 100 04/03/19 16:00 5.0 28 04/03/19 16:00 81 04/03/19 16:00 94 23 126/50 (75) 100 04/03/19 16:00 T-piece 5.0 T-piece 5.0 04/03/19 15:19 85 23 100 T-Piece 5.0 28 81 22 100 04/03/19 15:00 99.5 79 23 131/45 (73) 100 04/03/19 14:00 80 23 146/51 (82) 100 I&O Intake and Output 04/03/19 04/04/19 19:00 07:00 Intake Total 2035 ml 2530 ml Output Total 470 ml 1550 ml Balance 1565 ml 980 ml Free Water 225 ml 225 ml IV Total 1000 ml 1300 ml Tube Feeding 585 ml 780 ml Other 225 ml 225 ml Output Urine Total 470 ml 930 ml Gastric Drainage Total 120 ml Other 500 ml # Voids 200 # Bowel Movements 2 Dressing: other Wound: other Drains: other Cardiovascular: RSR Respiratory: decreased breath sounds Abdomen: soft, present bowel sounds, non-distended Extremities: no tenderness, no cyanosis, other Plan Problems: (1) Sacral decubitus ulcer Assessment & Plan: This is a 83-year-old female with multiple medical committees that is currently admitted for medical care and management and identified to have multiple wounds requiring care. On admission patient noted to have a resolved sacral decubitus ulcer. Has had prior care and is well-healed at this time. Will ensure it does not open up again. Patient has a right ischial decubitus ulcer that is resolved. Scar intact and well formed. Will monitor to ensure it does not open up again. Patient has a left ischial decubitus ulcer that can be identified to be stage IV with palpable bone that has been resolving as noted by the periwound tissue and scar but open area approximately 1 cm x 1.5 cm few millimeters deep to bone identified. Unsure if this is been to be completely healed prior and has since opened or if has been healing at this level. No foul odor no drainage was unsure local wound care until healed Bilateral heels soft without signs of injury Resolving pressure injury L ischium(L)1.8cm x (W)1cm.Scattered biofilm at base of wound. Edges flat and adherent with surrounding hyperpigmentation. No odor or exudate noted. Sacrum is pale pink with surrounding hyperpigmentation. Hyperpigmentation R ischium with small sheared area centrally.No areas of erythema or exudate noted. Both heels are soft but blanchable. Skin Assessed under collar of trach and no evidence of skin breakdown noted. All wound Tx. are effective and continued as ordered. Pt ahs an APM/Belén mattress overlay and is being repositioned per protocols and per tolerance.No new skin concerns noted. Full thickness pressure injury L Ischium with small amt biofilm (L)1.8cm x (W) 1cm. Surrounding pink hyperpigmentation. No odor or exudate noted. Saltaire hyperpigmentation from previous wound noted to sacrum. Pt also noted to have Cat 2 Skin Tear dorsal L hand, L 5th metatarsal extending into palm of hand. 80% skin flap in situ.Both heels are dry firm and blanchable. No other skin concerns noted. R ischial wound has resolved. Saltaire epithelial with surrounding hyperpigmentation. from historical wound. Full thickness pressure injury L ischium. Saltaire granulation at base of wound. Borders are macerated with Surrounding hyperpigmentation.Small amt non-odorous serous exudate noted.(L)0.7cm x (W)0.8cm. Skin hyperpigmentation from historical wound noted to Sacrum. Small sheared area noted to sacrococcygeal area.(L)0.4cm x (W)0.3cm.Small amt sanguineous exudate noted. Reabsorbed blister with semi-detached dry necrotic cap noted to web space of L thumb and L index fingers extending into palm of L hand. No odor or exudate noted. Skin assessed under tracheal collar and no erythema or evidence of Skin Breakdown noted. NO new skin concerns noted . Good hand hygiene provided to both hands. R hand contracted and fisted. Fingernails trimmed. Wound care provided along with Primary nurse. Wound Tx continued as ordered. New order obtained from to apply Betadine to wound L hand Daily. Tx done as ordered. L hand wrapped with kerlix weaving kerlix between fingers to separate fingers. Moisture Barrier applied to sacrum ,R ischium. Each site covered with Optifoam drsg. Both lower ext washed and moisturized. Cavilon Skin Barrier applied to both heels.Each heel covered with Optifoam drsgs. Pt positioned with pillows and both heels off-loaded with pillow. Tx.Plan: Apply Betadine to wound L hand. Cover with Gauze and wrap with Kerlix Daily and prn. Cleanse L ischial wound with Saline. Apply Therahoney. Apply Moisture Barrier periwound. Cover with Optifoam drsgevery 3 days and prn. Apply Moisture Barrier Paste to R ischium and Sacrum. Cover each area with Optifoam drsg. Change every 3 days and prn. Apply Cavilon Skin Barrier to both heels. Cover each heel with Optifoam drsg. Change every 7 days and prn. APM/BELÉN Mattress overlay. Reposition at least every 2hours or as tolerated. Off-load heels with pillow. Cleanse Blister Dorsal and palm of L hand with saline. Versatel One Silicone Contact Layer(Applied). Apply Silvasorb Gel. Wrap with Kerlix Gauze.Change every 7 days and prn. Apply Moisture Barrier to sacrum. Cover with Optifoam drsg. Change every 3 days and prn. Cleanse L ischial wound with saline. Apply Therahoney. Apply Moisture Barrier Paste periwound. Cover with Optifoam drsg. Change every 3 days and prn. Apply Cavilon Skin Barrier to both heels. Cover each heel with Optifoam drsg. Change every 7 days and prn. APM/BELÉN Mattress overlay. Reposition at least every 2hours or as tolerated. Off-load heels with pillow. Nutritional optimization We will monitor follow with recommendations cont with above upon d/c (2) Sepsis Assessment & Plan: IV abx as per ID trend labs improving wounds unlikely etiology likely respiratory imaging noted and okay abnormal lft's stable PICC on Abx in ICU for desaturation CXR with consolidation cont with frequent suctioning d/c planning g j via GI daughter wants close attention to wounds and management to ensure healing Evidence of left lower lobe pneumonia, also previously demonstrated Gastrostomy in good position Mild diastasis of the rectus abdominis musculature again demonstrated Retrosacral decubitus changes, better depicted on prior exam which included the pelvis Small hiatal hernia with evidence of trace gastroesophageal reflux Discussed with GI. Recommend GJ family still pending decision (3) Feeding by G-tube Assessment & Plan: DAILY ESTIMATED NEEDS: Needs based on Pulmonary, wounds, bedbound/ 61kg adj 25-30 kcals/kg 7365-0346 total kcals 1.25-2 g protein/kg 76-122 g total protein 25-30 mL/kg 8171-9324 total fluid mLs NUTRITION DIAGNOSIS: * Increased kcal/prot needs R/T wound healing as evidenced by BL buttocks and sacral wound photos, refer to eval. * Swallowing difficulty R/T respiratory status as evidenced by pt on T-collar, s/p G-J conversion CURRENT TF:Glucerna 1.5 @ 50ml/hr x 24 hrs ENTERAL NUTRITION RECOMMENDATIONS: Glucerna 1.5 @ 50ml/hr x 24 hrs to provide 1200ml, 1800 kcal, 99g pro, 911ml free H2O - Maintain at current rate as tolerated to meet 100% est needs - HOB over 30 degrees - INCREASE water flush of 170ml q 6 hrs ADDITIONAL RECOMMENDATIONS: 1) RE-calibrate bedscale wt: fluctuating daily wts (108#-136# last 6 days) 2) Wound healing: Add Cristian 1pkt BID w/ continued good TF tolerance. 3) Increase water flushes, monitor for signs of water deficits 4) Monitor BGs closely, need for NISS -> now w/ improved BGs 5) Monitor for continued good TF tolerance 6) Monitor K : elev K on 03/25, s/p Kdur BID, now dc'ed. (4) Chronic vegetative state Assessment & Plan: incontinence of urine and stool. can soil dressings. nurses doing great job with monitoring and changing prn (5) Leukocytosis Walter Madera Apr 04, 2019 13:08
--- NOTE | 2019-04-04 13:20 | NUR ---
NURSE NOTES: MD MCCLELLAN, HERE TO SEE PT. NO NEW ORDERS AT THIS TIME.
--- NOTE | 2019-04-04 13:24 | Infectious Diseases Prog Note ---
Assessment/Plan Assessment/Plan A 1. Providencia & Klebsiella pneumonia treated 2. respiratory failure 3. hypertension 4. CVA 5. dementia 6. sacral decubitus ulcer 7. rectal VRE colonization 8. Anemia 9. Proteus UTI 10. Acute renal failure 11. Leukocytosis resolved P 1.Observe off antibiotic 2. Frequent suctioning 3. Remove PICC line before discharge Subjective ROS Limited/Unobtainable: Yes Constitutional: Denies: fever Allergies: Coded Allergies: CODEINE (Verified Allergy, Unknown, HIVES, 09/15/09) Objective Vital Signs Last 24 Hour Vital Signs Date Time Temp Pulse Resp B/P (MAP) Pulse Ox O2 Delivery O2 Flow Rate FiO2 04/04/19 13:00 83 20 142/55 (84) 100 04/04/19 12:22 87 22 146/63 (90) 100 04/04/19 12:00 85 04/04/19 12:00 T-piece 5.0 T-piece 5.0 04/04/19 12:00 5.0 28 04/04/19 12:00 98.0 92 23 148/114 (125) 04/04/19 11:00 84 22 151/61 (91) 100 04/04/19 10:39 102 18 100 T-Piece 5.0 28 113 22 94 04/04/19 10:00 79 22 145/73 (97) 100 04/04/19 09:00 83 21 137/56 (83) 100 04/04/19 08:00 79 04/04/19 08:00 98.5 76 22 112/41 (64) 100 04/04/19 08:00 5.0 28 04/04/19 08:00 T-piece 5.0 T-piece 5.0 04/04/19 07:16 85 20 98 T-Piece 5.0 28 04/04/19 07:16 100 T-Piece 5.0 28 04/04/19 07:15 82 20 100 T-Piece 5.0 28 85 20 100 04/04/19 07:00 79 23 126/51 (76) 100 04/04/19 06:00 92 20 103/65 (78) 100 04/04/19 05:00 83 22 136/53 (80) 100 04/04/19 04:00 98.6 87 28 149/58 (88) 100 04/04/19 04:00 T-piece 5.0 T-piece 5.0 04/04/19 04:00 5.0 28 04/04/19 03:21 80 22 100 T-Piece 5.0 28 79 21 100 04/04/19 03:08 79 04/04/19 03:00 78 22 107/47 (67) 100 04/04/19 02:03 87 26 137/55 (82) 99 04/04/19 02:00 99 18 99 04/04/19 01:26 100 T-Piece 5.0 28 04/04/19 01:00 81 23 93/46 (62) 99 04/04/19 00:01 87 24 100 T-Piece 5.0 28 86 28 100 04/04/19 00:00 T-piece 5.0 T-piece 5.0 04/04/19 00:00 98.5 87 23 136/59 (84) 100 04/04/19 00:00 5.0 28 04/04/19 00:00 87 04/03/19 23:00 82 24 94/37 (56) 99 04/03/19 22:00 87 22 130/48 (75) 100 04/03/19 21:00 85 23 135/53 (80) 100 04/03/19 20:00 T-piece 5.0 T-piece 5.0 04/03/19 20:00 5.0 28 04/03/19 20:00 98.4 87 22 141/66 (91) 100 04/03/19 19:40 81 04/03/19 19:00 80 23 121/46 (71) 100 04/03/19 18:52 100 T-Piece 5.0 28 04/03/19 18:51 83 19 100 T-Piece 5.0 28 80 23 100 04/03/19 18:00 83 28 143/50 (81) 100 04/03/19 17:00 95 19 99/40 (59) 100 04/03/19 16:00 5.0 28 04/03/19 16:00 81 04/03/19 16:00 94 23 126/50 (75) 100 04/03/19 16:00 T-piece 5.0 T-piece 5.0 04/03/19 15:19 85 23 100 T-Piece 5.0 28 81 22 100 04/03/19 15:00 99.5 79 23 131/45 (73) 100 04/03/19 14:00 80 23 146/51 (82) 100 Height (Feet): 5 Height (Inches): 3.00 Weight (Pounds): 112 General Appearance: no acute distress HEENT: status post trach Respiratory/Chest: rhonchi - bilaterally, other - on Tbar Cardiovascular: normal rate Abdomen: soft, non tender, other - J tube Extremities: no edema Neurologic/Psychiatric: aphasia Laboratory Tests Test 04/04/19 12:00 Sodium Level Pending Potassium Level Pending Chloride Level Pending Carbon Dioxide Level Pending Blood Urea Nitrogen Pending Creatinine Pending Estimat Glomerular Filtration Rate Pending Glucose Level Pending Calcium Level Pending Total Bilirubin Pending Aspartate Amino Transf (AST/SGOT) Pending Alanine Aminotransferase (ALT/SGPT) Pending Alkaline Phosphatase Pending Total Protein Pending Albumin Pending Globulin Pending Current Medications Medications (Trade) Dose Ordered Sig/Maicol Route PRN Reason Start Time Stop Time Status Last Admin Dose Admin Acetaminophen (Tylenol) 650 mg Q6H PRN GT Mild Pain/Temp > 100.5 03/23/19 15:15 04/22/19 15:14 04/03/19 08:55 Albuterol/ Ipratropium (Albuterol/ Ipratropium) 3 ml Q4HRT HHN 03/30/19 19:00 04/04/19 18:59 04/04/19 10:39 Atropine Sulfate (Atropine Opth Adriana) 2 drop TID SL 03/07/19 09:00 04/06/19 08:59 04/04/19 09:00 Chlorhexidine Gluconate (Cesilia-Hex 2%) 1 applic DAILY@1999 TOPIC 03/12/19 20:00 04/11/19 19:59 04/03/19 19:54 Heparin Sodium (Porcine) (Heparin 5000 units/ml) 5,000 units EVERY 12 HOURS SUBQ 04/01/19 10:00 05/01/19 09:59 04/03/19 20:59 Hydralazine HCl (Apresoline) 10 mg Q4H PRN IV For High Blood Pressure 03/12/19 09:00 04/11/19 08:59 03/18/19 18:17 Lansoprazole (Prevacid) 30 mg Q12HR GT 03/29/19 09:00 04/24/19 20:59 04/04/19 08:59 Metoclopramide HCl (Reglan) 5 mg Q6H IVP 03/24/19 20:00 04/23/19 19:59 04/04/19 08:59 Ondansetron HCl (Zofran) 4 mg Q4H PRN IVP Nausea & Vomiting 03/18/19 18:15 04/17/19 18:14 03/21/19 08:27 Chauncey Liriano MD Apr 04, 2019 13:23
[2019-04-04 14:01] LABS: ALANINE AMINOTRANSFERASE 131 U/L (12-78); ALBUMIN 2.4 G/DL (3.4-5.0); ALBUMIN/GLOBULIN RATIO 0.5 (1.0-2.7); ALKALINE PHOSPHATASE 147 U/L (46-116); ANION GAP 10 mmol/L (5-15); ASPARTATE AMINO TRANSFERASE 108 U/L (15-37); BILIRUBIN,TOTAL 0.2 MG/DL (0.2-1.0); BLOOD UREA NITROGEN 23 mg/dL (7-18); CALCIUM 7.3 MG/DL (8.5-10.1); CARBON DIOXIDE 25 MMOL/L (21-32); CHLORIDE 106 MMOL/L (98-107); CREATININE 0.8 MG/DL (0.55-1.30); POTASSIUM 3.7 MMOL/L (3.5-5.1); SODIUM 141 MMOL/L (136-145)
--- NOTE | 2019-04-04 15:06 | General Progress Note ---
Assessment/Plan Problem List: (1) Seizure ICD Codes: R56.9 - Unspecified convulsions SNOMED: 89406845 (2) Anemia ICD Codes: D64.9 - Anemia, unspecified SNOMED: 392061994 Qualifiers: Qualified Codes: D64.9 - Anemia, unspecified (3) Sepsis ICD Codes: A41.9 - Sepsis, unspecified organism SNOMED: 75876431, 775757586 Qualifiers: Qualified Codes: A41.9 - Sepsis, unspecified organism (4) Respiratory failure with hypoxia ICD Codes: J96.91 - Respiratory failure, unspecified with hypoxia SNOMED: 49877928448323887 Qualifiers: Qualified Codes: J96.21 - Acute and chronic respiratory failure with hypoxia (5) HCAP (healthcare-associated pneumonia) ICD Codes: J18.9 - Pneumonia, unspecified organism SNOMED: 759742071, 192651828 (6) Sacral decubitus ulcer ICD Codes: L89.159 - Pressure ulcer of sacral region, unspecified stage SNOMED: 084214441 (7) HTN (hypertension) ICD Codes: I10 - Essential (primary) hypertension SNOMED: 44130974 (8) Chronic vegetative state ICD Codes: R40.3 - Persistent vegetative state SNOMED: 57691668 (9) Chronic respiratory failure ICD Codes: J96.10 - Chronic respiratory failure, unspecified whether with hypoxia or hypercapnia SNOMED: 25372743 (10) Limited mobility ICD Codes: Z74.09 - Other reduced mobility SNOMED: 6739900 Status: stable, progressing Assessment/Plan: vent as needed resp rx suctioning j tube feeds g port to [facility] skin care sz rx monitor h/h repeat lfts check abd us dc planning Subjective ROS Limited/Unobtainable: No Constitutional: Reports: malaise, weakness HEENT: Reports: no symptoms Cardiovascular: Reports: no symptoms Respiratory: Reports: cough, sputum Gastrointestinal/Abdominal: Reports: difficulty swallowing Genitourinary: Reports: no symptoms Neurologic/Psychiatric: Reports: pre-existing deficit, seizure Endocrine: Reports: no symptoms Hematologic/Lymphatic: Reports: anemia Allergies: Coded Allergies: CODEINE (Verified Allergy, Unknown, HIVES, 09/15/09) All Systems: reviewed and negative except above Subjective no events. stable on the vent, tolerating feeds, no fevers. no szs. Objective Last 24 Hour Vital Signs Date Time Temp Pulse Resp B/P (MAP) Pulse Ox O2 Delivery O2 Flow Rate FiO2 04/04/19 14:00 83 22 158/54 (88) 100 04/04/19 13:41 100 T-Piece 5.0 28 04/04/19 13:00 83 20 142/55 (84) 100 04/04/19 12:22 87 22 146/63 (90) 100 04/04/19 12:00 85 04/04/19 12:00 T-piece 5.0 T-piece 5.0 04/04/19 12:00 5.0 28 04/04/19 12:00 98.0 92 23 148/114 (125) 04/04/19 11:00 84 22 151/61 (91) 100 04/04/19 10:39 102 18 100 T-Piece 5.0 28 113 22 94 04/04/19 10:00 79 22 145/73 (97) 100 04/04/19 09:00 83 21 137/56 (83) 100 04/04/19 08:00 79 04/04/19 08:00 98.5 76 22 112/41 (64) 100 04/04/19 08:00 5.0 28 04/04/19 08:00 T-piece 5.0 T-piece 5.0 04/04/19 07:16 85 20 98 T-Piece 5.0 28 04/04/19 07:16 100 T-Piece 5.0 28 04/04/19 07:15 82 20 100 T-Piece 5.0 28 85 20 100 04/04/19 07:00 79 23 126/51 (76) 100 04/04/19 06:00 92 20 103/65 (78) 100 04/04/19 05:00 83 22 136/53 (80) 100 04/04/19 04:00 98.6 87 28 149/58 (88) 100 04/04/19 04:00 T-piece 5.0 T-piece 5.0 04/04/19 04:00 5.0 28 04/04/19 03:21 80 22 100 T-Piece 5.0 28 79 21 100 04/04/19 03:08 79 04/04/19 03:00 78 22 107/47 (67) 100 04/04/19 02:03 87 26 137/55 (82) 99 04/04/19 02:00 99 18 99 04/04/19 01:26 100 T-Piece 5.0 28 04/04/19 01:00 81 23 93/46 (62) 99 04/04/19 00:01 87 24 100 T-Piece 5.0 28 86 28 100 04/04/19 00:00 T-piece 5.0 T-piece 5.0 04/04/19 00:00 98.5 87 23 136/59 (84) 100 04/04/19 00:00 5.0 28 04/04/19 00:00 87 04/03/19 23:00 82 24 94/37 (56) 99 04/03/19 22:00 87 22 130/48 (75) 100 04/03/19 21:00 85 23 135/53 (80) 100 04/03/19 20:00 T-piece 5.0 T-piece 5.0 04/03/19 20:00 5.0 28 04/03/19 20:00 98.4 87 22 141/66 (91) 100 04/03/19 19:40 81 04/03/19 19:00 80 23 121/46 (71) 100 04/03/19 18:52 100 T-Piece 5.0 28 04/03/19 18:51 83 19 100 T-Piece 5.0 28 80 23 100 04/03/19 18:00 83 28 143/50 (81) 100 04/03/19 17:00 95 19 99/40 (59) 100 04/03/19 16:00 5.0 28 04/03/19 16:00 81 04/03/19 16:00 94 23 126/50 (75) 100 04/03/19 16:00 T-piece 5.0 T-piece 5.0 04/03/19 15:19 85 23 100 T-Piece 5.0 28 81 22 100 Intake and Output 04/03/19 04/04/19 19:00 07:00 Intake Total 2035 ml 2530 ml Output Total 470 ml 1550 ml Balance 1565 ml 980 ml Free Water 225 ml 225 ml IV Total 1000 ml 1300 ml Tube Feeding 585 ml 780 ml Other 225 ml 225 ml Output Urine Total 470 ml 930 ml Gastric Drainage Total 120 ml Other 500 ml # Voids 200 # Bowel Movements 2 Laboratory Tests 04/04/19 12:00: Sodium Level 141, Potassium Level 3.7, Chloride Level 106, Carbon Dioxide Level 25, Anion Gap 10, Blood Urea Nitrogen 23H, Creatinine 0.8, Estimat Glomerular Filtration Rate , Glucose Level 442H, Calcium Level 7.3L, Total Bilirubin 0.2, Aspartate Amino Transf (AST/SGOT) 108H, Alanine Aminotransferase (ALT/SGPT) 131H , Alkaline Phosphatase 147H, Total Protein 7.0, Albumin 2.4L, Globulin 4.6, Albumin/Globulin Ratio 0.5L Height (Feet): 5 Height (Inches): 3.00 Weight (Pounds): 112 Objective General Appearance: WD/WN, confused. on trach collar Neck: supple Cardiovascular: normal rate, regular rhythm Respiratory/Chest: chest wall non-tender, rhonchi - bilaterally(minimal) Abdomen: normal bowel sounds, non tender, soft, no organomegaly Edema: no edema noted Arm (L), no edema noted Arm (R), no edema noted Leg (L), no edema noted Leg (R), no edema noted Pedal (L), no edema noted Pedal (R), no edema noted Generalized Neurologic: disoriented, unresponsive, aphasia Irvin Beltrán MD Apr 04, 2019 15:05
--- NOTE | 2019-04-04 15:21 | NUR ---
NURSE NOTES: PT REPOSITIONED, IN BED, ORAL CARE PROVIDED AND SUCTIONING. VSS. NPO STATUS FOR US OF ABDOMEN.
[2019-04-04] MEDS ORDERED: Sterile Water Irrig 1000ml IRRIG ONE (16:40)
[2019-04-04] MEDS ORDERED: D5 1/2NS 1000ml IV ONE (16:40)
--- NOTE | 2019-04-04 19:00 | NUR ---
HAND-OFF: Report given to Anat Ramos PT IN NO ACUTE DISTRESS.
--- NOTE | 2019-04-04 19:20 | NUR ---
NURSE NOTES: Report received from JEANNINE Miller. Observed pt lying in the bed, open-eyes, but-non verbal. SR on surveillance system monitor. On T-piece 28%, saturating at 100%. Jtube running vital AF 1.2 at 65cc/hr. Gtube to gravity, yellowish discharge draining noted. Purewick in placed. PICC at JOSY, intact and TKO noted. Bed in the lowest position. Side rails up x3. Will continue to monitor.
--- NOTE | 2019-04-04 20:30 | NUR ---
NURSE NOTES: Spoke with and new order received. Will be carried out. BS fingers stick noted to be 110 at this time. Tube feeding remains at 65cc/hr, vital 1.2. Will continue to monitor.
--- NOTE | 2019-04-04 20:36 | General Progress Note ---
Assessment/Plan Status: stable, progressing Assessment/Plan: Assessment - N/V - resolved with G --> J conversion, will d/c reglan - constipation - resolved - Elevated Alk phos / LFT - CT negative - abd U/S negative - check hepatitis serologies - negative - possibly MURRAY / Fatty liver - Anemia with OB (-) stools - Resp failure, s/p Trach - dysphagia, s/p PEG --> GJ tube - OBS, vegetative obtunded unresponsive state, bedbound with contracted extremities, - h/o minor GJ tube site irritation - Early J port occlusion, possibly due to thick diabetic TF formula - Elevated glucose - poor Prognosis Recommendations - laxative PRN - antibiotic ointment to GJT site PRN - aspiration precautions - elevate HOB - trial of thinner Vital AF 1.2 - check q 6 hour FS off of D5 04/02 to evaluate pattern of glucose level - J tube feeds - G tube drain Subjective Allergies: Coded Allergies: CODEINE (Verified Allergy, Unknown, HIVES, 09/15/09) Subjective above noted tolerating TF via J port TF recently changed from Glucerna 1.5 to Vital AF 1.2 since the former much thicker, possibly causing the early occlusion of previously placed J tube review of noon labs from today shows markedly elevated glucose but IVF with D5 since d/c'd orders for q6 accu-checks given and d/w RN Objective Last 24 Hour Vital Signs Date Time Temp Pulse Resp B/P (MAP) Pulse Ox O2 Delivery O2 Flow Rate FiO2 04/04/19 19:54 100 T-Piece 5.0 28 04/04/19 19:54 89 20 100 T-Piece 5.0 28 87 24 100 04/04/19 18:00 81 21 143/48 (79) 99 04/04/19 17:00 109 22 144/60 (88) 99 04/04/19 16:00 79 20 155/67 (96) 100 04/04/19 16:00 T-piece 5.0 T-piece 5.0 04/04/19 16:00 84 04/04/19 16:00 5.0 28 04/04/19 15:45 90 20 100 T-Piece 5.0 28 89 20 100 04/04/19 15:00 82 23 151/55 (87) 100 04/04/19 14:00 83 22 158/54 (88) 100 04/04/19 13:41 100 T-Piece 5.0 28 04/04/19 13:00 83 20 142/55 (84) 100 04/04/19 12:22 87 22 146/63 (90) 100 04/04/19 12:00 85 04/04/19 12:00 T-piece 5.0 T-piece 5.0 04/04/19 12:00 5.0 28 04/04/19 12:00 98.0 92 23 148/114 (125) 04/04/19 11:00 84 22 151/61 (91) 100 04/04/19 10:39 102 18 100 T-Piece 5.0 28 113 22 94 04/04/19 10:00 79 22 145/73 (97) 100 04/04/19 09:00 83 21 137/56 (83) 100 04/04/19 08:00 79 04/04/19 08:00 98.5 76 22 112/41 (64) 100 04/04/19 08:00 5.0 28 04/04/19 08:00 T-piece 5.0 T-piece 5.0 04/04/19 07:16 85 20 98 T-Piece 5.0 28 04/04/19 07:16 100 T-Piece 5.0 28 04/04/19 07:15 82 20 100 T-Piece 5.0 28 85 20 100 04/04/19 07:00 79 23 126/51 (76) 100 04/04/19 06:00 92 20 103/65 (78) 100 04/04/19 05:00 83 22 136/53 (80) 100 04/04/19 04:00 98.6 87 28 149/58 (88) 100 04/04/19 04:00 T-piece 5.0 T-piece 5.0 04/04/19 04:00 5.0 28 04/04/19 03:21 80 22 100 T-Piece 5.0 28 79 21 100 04/04/19 03:08 79 04/04/19 03:00 78 22 107/47 (67) 100 04/04/19 02:03 87 26 137/55 (82) 99 04/04/19 02:00 99 18 99 04/04/19 01:26 100 T-Piece 5.0 28 04/04/19 01:00 81 23 93/46 (62) 99 04/04/19 00:01 87 24 100 T-Piece 5.0 28 86 28 100 04/04/19 00:00 T-piece 5.0 T-piece 5.0 04/04/19 00:00 98.5 87 23 136/59 (84) 100 04/04/19 00:00 5.0 28 04/04/19 00:00 87 04/03/19 23:00 82 24 94/37 (56) 99 04/03/19 22:00 87 22 130/48 (75) 100 04/03/19 21:00 85 23 135/53 (80) 100 Intake and Output 04/03/19 04/04/19 18:59 06:59 Intake Total 2200 ml 2365 ml Output Total 470 ml 1400 ml Balance 1730 ml 965 ml Free Water 225 ml 225 ml IV Total 1100 ml 1200 ml Tube Feeding 650 ml 715 ml Other 225 ml 225 ml Output Urine Total 470 ml 780 ml Gastric Drainage Total 120 ml Other 500 ml # Voids 200 # Bowel Movements 2 Laboratory Tests 04/04/19 12:00: Sodium Level 141, Potassium Level 3.7, Chloride Level 106, Carbon Dioxide Level 25, Anion Gap 10, Blood Urea Nitrogen 23H, Creatinine 0.8, Estimat Glomerular Filtration Rate , Glucose Level 442H, Calcium Level 7.3L, Total Bilirubin 0.2, Aspartate Amino Transf (AST/SGOT) 108H, Alanine Aminotransferase (ALT/SGPT) 131H , Alkaline Phosphatase 147H, Total Protein 7.0, Albumin 2.4L, Globulin 4.6, Albumin/Globulin Ratio 0.5L Height (Feet): 5 Height (Inches): 3.00 Weight (Pounds): 112 Objective Debilitated AA woman non-verbal, obtunded NCAT (+) trach coarse BS RR obese abd, (+) GJT no edema (+) contractured extremities Celio Vaughan MD Apr 04, 2019 20:35
[2019-04-04] MEDS: Dyna-Hex 2% Top Sol 2oz TOPIC SCH (20:46)
--- NOTE | 2019-04-04 22:00 | NUR ---
NURSE NOTES: Pt lying in the bed, calm and comfortable. No acute distress noted at this time. Reposition done. Oral care given. Small amount of white sputum suctioned. VS WNL. Will continue to monitor.
[2019-04-05] VITALS (24 sets, daily range): BP systolic 108–172; BP diastolic 41–73
[2019-04-05] MEDS: Albuterol/Ipratropium 3ml neb HHN SCH ×6 (00:02→19:37)
--- NOTE | 2019-04-05 00:07 | NUR ---
NURSE NOTES: Pt appears calm and comfortable. No acute distress noted at this time. GT and JT flushed 75cc each. VS WNL. SR on jewel blocker and sawyer. Tolerating well with current T-piece, 28%. Will continue to monitor.
--- NOTE | 2019-04-05 02:00 | NUR ---
NURSE NOTES: Pt lying in the bed, calm. No acute distress noted at this time. VS WNL. No signs of SOB. Reposition done. Will continue to monitor.
--- NOTE | 2019-04-05 04:10 | NUR ---
NURSE NOTES: Pt stable condition. No distress noted at this time. Small amount of white sputum suctioned. Central dressing changed. Bed bath given. Will continue to monitor.
--- NOTE | 2019-04-05 05:32 | NUR ---
NURSE NOTES: No acute distress noted at this time. BS of 114 noted. GT and JT flushed. VS WNL. Pt appears calm. Will continue to monitor.
[2019-04-05 05:50] LABS: HEMATOCRIT 23.2 % (37.0-47.0); HEMOGLOBIN 7.4 G/DL (12.0-16.0); MEAN CORPUSCULAR VOLUME 89 FL (80-99); PLATELET COUNT 188 K/UL (150-450); RED BLOOD COUNT 2.62 M/UL (4.20-5.40); RED CELL DISTRIBUTION WIDTH 16.2 % (11.6-14.8); WHITE BLOOD COUNT 6.6 K/UL (4.8-10.8)
[2019-04-05 06:59] LABS: ALANINE AMINOTRANSFERASE 137 U/L (12-78); ALBUMIN 2.4 G/DL (3.4-5.0); ALBUMIN/GLOBULIN RATIO 0.5 (1.0-2.7); ALKALINE PHOSPHATASE 150 U/L (46-116); ANION GAP 8 mmol/L (5-15); ASPARTATE AMINO TRANSFERASE 85 U/L (15-37); BILIRUBIN,TOTAL 0.1 MG/DL (0.2-1.0); BLOOD UREA NITROGEN 26 mg/dL (7-18); CALCIUM 7.5 MG/DL (8.5-10.1); CARBON DIOXIDE 27 MMOL/L (21-32); CHLORIDE 110 MMOL/L (98-107); CREATININE 0.7 MG/DL (0.55-1.30); POTASSIUM 3.8 MMOL/L (3.5-5.1); SODIUM 145 MMOL/L (136-145)
--- NOTE | 2019-04-05 07:21 | NUR ---
HAND-OFF: Report given to JEANNINE Miller.
--- NOTE | 2019-04-05 07:30 | NUR ---
NURSE NOTES: LATE ENTRY: RECEIVED REPOT FROM Rachel BUTCHER PT OPENS EYES SPONTANEOUSLY. ABNORMAL FLEXION TO PAIN. BILATERAL PUPILS 3MM SLUGGISH. TRACH DEPENDENT SHILEY 6. T-PIECE 28%, 5L. VS: HR 79, BP 124/54, SP02 100, RR 22. ORAL SECRETIONS LIGHT YELLOW AND FROTHY. LUNG SOUNDS UPPER LOBES RHONCHI, LOWER LOBES DIMINISHED. ABDOMEN ROUND, SOFT, NON TENDER. BOWEL SOUNDS HYPOACTIVE ALL QUADRANTS. NO BM AT THIS TIME. G-TUBE TO GRAVITY DRAINAGE AND J-TUBE RUNNING VITAL A.F 1.2 RUNNING AT 65ML/HR. FLUSH 75ML VIA EACH PORT. PUREWICK DRAINING YELLOW URINE. CAP REFILL <3SEC, SKIN -SEE ASSESSMENT. COOL TO TOUCH AND DRY. AX TEMP 100.5, COOLING MEASURES IN PLACE. BILATERAL RADIAL PULSES BOUNDING AND PEDAL PULSES WEAK. PICC JOSY RUNNING TKO. CONTACT AND SZ PRECAUTIONS IN PLACE. BED LOCKED, IN LOWEST POSITION, SIDE RAILS X3. BED ALARM ON. WILL CONTINUE TO MONITOR PT.
--- NOTE | 2019-04-05 08:40 | General Progress Note ---
Assessment/Plan Problem List: (1) Seizure ICD Codes: R56.9 - Unspecified convulsions SNOMED: 44777661 (2) Anemia ICD Codes: D64.9 - Anemia, unspecified SNOMED: 824148339 Qualifiers: Qualified Codes: D64.9 - Anemia, unspecified (3) Sepsis ICD Codes: A41.9 - Sepsis, unspecified organism SNOMED: 38364868, 625682146 Qualifiers: Qualified Codes: A41.9 - Sepsis, unspecified organism (4) Respiratory failure with hypoxia ICD Codes: J96.91 - Respiratory failure, unspecified with hypoxia SNOMED: 17895098243584665 Qualifiers: Qualified Codes: J96.21 - Acute and chronic respiratory failure with hypoxia (5) HCAP (healthcare-associated pneumonia) ICD Codes: J18.9 - Pneumonia, unspecified organism SNOMED: 163897269, 048152459 (6) Sacral decubitus ulcer ICD Codes: L89.159 - Pressure ulcer of sacral region, unspecified stage SNOMED: 796699680 (7) HTN (hypertension) ICD Codes: I10 - Essential (primary) hypertension SNOMED: 75829129 (8) Chronic vegetative state ICD Codes: R40.3 - Persistent vegetative state SNOMED: 28008893 (9) Chronic respiratory failure ICD Codes: J96.10 - Chronic respiratory failure, unspecified whether with hypoxia or hypercapnia SNOMED: 41886949 (10) Limited mobility ICD Codes: Z74.09 - Other reduced mobility SNOMED: 7883915 Status: stable, progressing Assessment/Plan: vent as needed resp rx suctioning j tube feeds g port to [facility] sz rx repeat cbc may need transfusion Subjective ROS Limited/Unobtainable: Yes Constitutional: Reports: malaise, weakness HEENT: Reports: no symptoms Cardiovascular: Reports: no symptoms Respiratory: Reports: cough Gastrointestinal/Abdominal: Reports: difficulty swallowing Genitourinary: Reports: no symptoms Neurologic/Psychiatric: Reports: pre-existing deficit, seizure Endocrine: Reports: no symptoms Hematologic/Lymphatic: Reports: anemia Allergies: Coded Allergies: CODEINE (Verified Allergy, Unknown, HIVES, 09/15/09) All Systems: reviewed and negative except above Subjective no events. decresed h/h noted. no reports of bleeding. tolerating feeds, no vomiting. Objective Last 24 Hour Vital Signs Date Time Temp Pulse Resp B/P (MAP) Pulse Ox O2 Delivery O2 Flow Rate FiO2 04/05/19 07:32 100 T-Piece 5.0 28 04/05/19 07:31 82 20 100 T-Piece 5.0 28 84 20 100 04/05/19 07:00 88 26 108/58 (75) 100 04/05/19 06:00 88 26 146/57 (86) 100 04/05/19 05:00 74 21 133/53 (79) 100 04/05/19 04:00 79 22 100 04/05/19 04:00 5.0 28 04/05/19 04:00 T-piece 5.0 T-piece 5.0 04/05/19 04:00 83 04/05/19 04:00 98.4 79 22 135/65 (88) 100 04/05/19 03:32 81 20 100 T-Piece 5.0 28 84 21 100 04/05/19 03:00 79 21 112/49 (70) 100 04/05/19 02:00 100 24 135/56 (82) 100 04/05/19 01:12 100 T-Piece 5.0 28 04/05/19 01:00 81 21 127/50 (75) 100 04/05/19 00:02 80 21 100 T-Piece 5.0 28 81 19 100 04/05/19 00:00 T-piece 5.0 T-piece 5.0 04/05/19 00:00 82 04/05/19 00:00 98.5 79 23 134/54 (80) 99 04/05/19 00:00 5.0 28 04/04/19 23:00 84 22 119/56 (77) 100 04/04/19 22:00 81 22 105/50 (68) 100 04/04/19 21:00 81 22 105/51 (69) 100 04/04/19 20:00 83 04/04/19 20:00 T-piece 5.0 T-piece 5.0 04/04/19 20:00 5.0 28 04/04/19 20:00 98.4 81 23 105/40 (61) 100 04/04/19 19:54 100 T-Piece 5.0 28 04/04/19 19:54 89 20 100 T-Piece 5.0 28 87 24 100 04/04/19 19:00 84 22 121/50 (73) 100 04/04/19 18:00 81 21 143/48 (79) 99 04/04/19 17:00 109 22 144/60 (88) 99 04/04/19 16:00 79 20 155/67 (96) 100 04/04/19 16:00 T-piece 5.0 T-piece 5.0 04/04/19 16:00 84 04/04/19 16:00 5.0 28 04/04/19 15:45 90 20 100 T-Piece 5.0 28 89 20 100 04/04/19 15:00 82 23 151/55 (87) 100 04/04/19 14:00 83 22 158/54 (88) 100 04/04/19 13:41 100 T-Piece 5.0 28 04/04/19 13:00 83 20 142/55 (84) 100 04/04/19 12:22 87 22 146/63 (90) 100 04/04/19 12:00 85 04/04/19 12:00 T-piece 5.0 T-piece 5.0 04/04/19 12:00 5.0 28 04/04/19 12:00 98.0 92 23 148/114 (125) 04/04/19 11:00 84 22 151/61 (91) 100 04/04/19 10:39 102 18 100 T-Piece 5.0 28 113 22 94 04/04/19 10:00 79 22 145/73 (97) 100 04/04/19 09:00 83 21 137/56 (83) 100 Intake and Output 04/04/19 04/05/19 19:00 07:00 Intake Total 1500 ml 1230 ml Output Total 900 ml 500 ml Balance 600 ml 730 ml Free Water 225 ml 225 ml IV Total 400 ml Tube Feeding 650 ml 780 ml Other 225 ml 225 ml Output Urine Total 600 ml 500 ml Gastric Drainage Total 300 ml # Bowel Movements 4 Laboratory Tests 04/04/19 12:00: Sodium Level 141, Potassium Level 3.7, Chloride Level 106, Carbon Dioxide Level 25, Anion Gap 10, Blood Urea Nitrogen 23H, Creatinine 0.8, Estimat Glomerular Filtration Rate , Glucose Level 442H, Calcium Level 7.3L, Total Bilirubin 0.2, Aspartate Amino Transf (AST/SGOT) 108H, Alanine Aminotransferase (ALT/SGPT) 131H , Alkaline Phosphatase 147H, Total Protein 7.0, Albumin 2.4L, Globulin 4.6, Albumin/Globulin Ratio 0.5L 04/05/19 04:30: Sodium Level 145, Potassium Level 3.8, Chloride Level 110H, Carbon Dioxide Level 27, Anion Gap 8, Blood Urea Nitrogen 26H, Creatinine 0.7, Estimat Glomerular Filtration Rate , Glucose Level 104#, Calcium Level 7.5L, Total Bilirubin 0.1L, Aspartate Amino Transf (AST/SGOT) 85H, Alanine Aminotransferase (ALT/SGPT) 137H, Alkaline Phosphatase 150H, Total Protein 7.1, Albumin 2.4L, Globulin 4.7, Albumin/Globulin Ratio 0.5L, White Blood Count 6.6, Red Blood Count 2.62L, Hemoglobin 7.4L, Hematocrit 23.2L, Mean Corpuscular Volume 89, Mean Corpuscular Hemoglobin 28.1, Mean Corpuscular Hemoglobin Concent 31.7L, Red Cell Distribution Width 16.2H, Platelet Count 188, Mean Platelet Volume 6.2L , Neutrophils (%) (Auto) , Lymphocytes (%) (Auto) , Monocytes (%) (Auto) , Eosinophils (%) (Auto) , Basophils (%) (Auto) , Differential Total Cells Counted 100, Neutrophils % (Manual) 50, Lymphocytes % (Manual) 37, Monocytes % ( Manual) 8, Eosinophils % (Manual) 4H, Basophils % (Manual) 1, Band Neutrophils 0 , Platelet Estimate Adequate, Platelet Morphology Normal, Hypochromasia 3+, Anisocytosis 1+ Height (Feet): 5 Height (Inches): 3.00 Weight (Pounds): 119 Objective General Appearance: WD/WN, confused. on trach collar Neck: supple Cardiovascular: normal rate, regular rhythm Respiratory/Chest: chest wall non-tender, rhonchi - bilaterally(minimal) Abdomen: normal bowel sounds, non tender, soft, no organomegaly Edema: no edema noted Arm (L), no edema noted Arm (R), no edema noted Leg (L), no edema noted Leg (R), no edema noted Pedal (L), no edema noted Pedal (R), no edema noted Generalized Neurologic: disoriented, unresponsive, aphasia Irvin Beltrán MD Apr 05, 2019 08:40
--- NOTE | 2019-04-05 08:57 | NUR ---
NURSE NOTES: CALLED [facility]. SPOKE W/ FLOOR NURSE ARINAANDREW WAS GIVEN SNIPPER NUMBER NATALIE AT [phone], NO WAY TO LEAVE MESSAGE, ALSO CALLED [employer] MACHINE OPERATOR LEE AT [phone] SAME. WAS INFORMED THAT SATURDAY THE CASE CAN BE PROCESSED. MADE AWARE AND C.N AT [facility] [place].
[2019-04-05] MEDS: Heparin 5000 units/ml inj SUBQ SCH ×2 (09:28→20:13)
[2019-04-05 10:42] LABS: HEMATOCRIT 19.2 % (37.0-47.0); MEAN CORPUSCULAR VOLUME 89 FL (80-99); PLATELET COUNT 153 K/UL (150-450); RED BLOOD COUNT 2.14 M/UL (4.20-5.40); RED CELL DISTRIBUTION WIDTH 15.9 % (11.6-14.8); WHITE BLOOD COUNT 5.2 K/UL (4.8-10.8)
--- NOTE | 2019-04-05 12:00 | NUR ---
NURSE NOTES: LATE ENTRY: PT OPENS EYES TO SHAKING. TRACH DEPENDENT SHILEY 6. T-PIECE 28%, 5L. VS: HR 84, BP 150/63, SP02 100, RR 22. ORAL SECRETIONS LIGHT YELLOW AND FROTHY. PRODUCTIVE COUGH PRESENT. PT DISPLAYS TREMORS AFTER COUGHING LASTING A FEW SECONDS. SUCTION AND ORAL CARE PROVIDED. PT HAD ONE LARGE BM BROWN, SOFT. PUREWICK REPLACED, PT CONTINUES TO MAKE YELLOW URINE. PERICARE PROVIDED. SACRAL DRESSINGS REPLACED. MOISTURE BARRIER CREAM APPLIED TO SACRUM AND INNER THIGHS. BILATERAL RADIAL PULSES BOUNDING AND PEDAL PULSES WEAK. PICC JOSY RUNNING TKO. CONTACT AND SZ PRECAUTIONS IN PLACE. BED LOCKED, IN LOWEST POSITION, SIDE RAILS X3. BED ALARM ON. WILL CONTINUE TO MONITOR PT.
--- NOTE | 2019-04-05 12:36 | Nephrology Progress Note ---
Assessment/Plan Problem List: (1) Acute renal failure (ARF) Assessment: Cr stable (2) Chronic respiratory failure (3) Anemia (4) Sepsis Assessment Acute renal failure Respiratory failure - Trach Low Mag- Low k , Low Na Anemia UTI / Sepsis Proteinuria / HypoAlbuminemia high Trigs Sz decubs bed bound DNR Plan Hgb Low- due transfusion now has JT bolus Albumin as needed K and Mag and Phos supplement as needed Hydrate as needed Urine studies avoid Nephrotoxics mag K Phos supplements as needed monitor renal parameters Subjective ROS Limited/Unobtainable: No Constitutional: Reports: malaise Objective Objective Last 24 Hour Vital Signs Date Time Temp Pulse Resp B/P (MAP) Pulse Ox O2 Delivery O2 Flow Rate FiO2 04/05/19 11:05 84 20 100 T-Piece 5.0 28 86 20 100 04/05/19 11:00 81 21 140/69 (92) 100 04/05/19 10:00 84 21 148/60 (89) 100 04/05/19 09:00 82 21 138/54 (82) 100 04/05/19 08:00 5.0 28 04/05/19 08:00 100.5 79 21 124/54 (77) 100 04/05/19 08:00 T-piece 5.0 T-piece 5.0 04/05/19 08:00 77 04/05/19 07:32 100 T-Piece 5.0 28 04/05/19 07:31 82 20 100 T-Piece 5.0 28 84 20 100 04/05/19 07:00 88 26 108/58 (75) 100 04/05/19 06:00 88 26 146/57 (86) 100 04/05/19 05:00 74 21 133/53 (79) 100 04/05/19 04:00 79 22 100 04/05/19 04:00 5.0 28 04/05/19 04:00 T-piece 5.0 T-piece 5.0 04/05/19 04:00 83 04/05/19 04:00 98.4 79 22 135/65 (88) 100 04/05/19 03:32 81 20 100 T-Piece 5.0 28 84 21 100 04/05/19 03:00 79 21 112/49 (70) 100 04/05/19 02:00 100 24 135/56 (82) 100 04/05/19 01:12 100 T-Piece 5.0 28 04/05/19 01:00 81 21 127/50 (75) 100 04/05/19 00:02 80 21 100 T-Piece 5.0 28 81 19 100 04/05/19 00:00 T-piece 5.0 T-piece 5.0 04/05/19 00:00 82 04/05/19 00:00 98.5 79 23 134/54 (80) 99 04/05/19 00:00 5.0 28 04/04/19 23:00 84 22 119/56 (77) 100 04/04/19 22:00 81 22 105/50 (68) 100 04/04/19 21:00 81 22 105/51 (69) 100 04/04/19 20:00 83 04/04/19 20:00 T-piece 5.0 T-piece 5.0 04/04/19 20:00 5.0 28 04/04/19 20:00 98.4 81 23 105/40 (61) 100 04/04/19 19:54 100 T-Piece 5.0 28 04/04/19 19:54 89 20 100 T-Piece 5.0 28 87 24 100 04/04/19 19:00 84 22 121/50 (73) 100 04/04/19 18:00 81 21 143/48 (79) 99 04/04/19 17:00 109 22 144/60 (88) 99 04/04/19 16:00 79 20 155/67 (96) 100 04/04/19 16:00 T-piece 5.0 T-piece 5.0 04/04/19 16:00 84 04/04/19 16:00 5.0 28 04/04/19 15:45 90 20 100 T-Piece 5.0 28 89 20 100 04/04/19 15:00 82 23 151/55 (87) 100 04/04/19 14:00 83 22 158/54 (88) 100 04/04/19 13:41 100 T-Piece 5.0 28 04/04/19 13:00 83 20 142/55 (84) 100 Intake and Output 04/04/19 04/05/19 19:00 07:00 Intake Total 1500 ml 1230 ml Output Total 900 ml 500 ml Balance 600 ml 730 ml Free Water 225 ml 225 ml IV Total 400 ml Tube Feeding 650 ml 780 ml Other 225 ml 225 ml Output Urine Total 600 ml 500 ml Gastric Drainage Total 300 ml # Bowel Movements 4 Laboratory Tests 04/05/19 04:30: White Blood Count 6.6, Red Blood Count 2.62L, Hemoglobin 7.4L, Hematocrit 23.2L , Mean Corpuscular Volume 89, Mean Corpuscular Hemoglobin 28.1, Mean Corpuscular Hemoglobin Concent 31.7L, Red Cell Distribution Width 16.2H, Platelet Count 188, Mean Platelet Volume 6.2L, Neutrophils (%) (Auto) , Lymphocytes (%) (Auto) , Monocytes (%) (Auto) , Eosinophils (%) (Auto) , Basophils (%) (Auto) , Differential Total Cells Counted 100, Neutrophils % ( Manual) 50, Lymphocytes % (Manual) 37, Monocytes % (Manual) 8, Eosinophils % ( Manual) 4H, Basophils % (Manual) 1, Band Neutrophils 0, Platelet Estimate Adequate, Platelet Morphology Normal, Hypochromasia 3+, Anisocytosis 1+, Sodium Level 145, Potassium Level 3.8, Chloride Level 110H, Carbon Dioxide Level 27, Anion Gap 8, Blood Urea Nitrogen 26H, Creatinine 0.7, Estimat Glomerular Filtration Rate , Glucose Level 104#, Calcium Level 7.5L, Total Bilirubin 0.1L, Aspartate Amino Transf (AST/SGOT) 85H, Alanine Aminotransferase (ALT/SGPT) 137H , Alkaline Phosphatase 150H, Total Protein 7.1, Albumin 2.4L, Globulin 4.7, Albumin/Globulin Ratio 0.5L 04/05/19 09:30: White Blood Count 5.2, Red Blood Count 2.14L, Hemoglobin 6.0*L, Hematocrit 19.2L , Mean Corpuscular Volume 89, Mean Corpuscular Hemoglobin 28.2, Mean Corpuscular Hemoglobin Concent 31.5L, Red Cell Distribution Width 15.9H, Platelet Count 153, Mean Platelet Volume 6.7, Neutrophils (%) (Auto) , Lymphocytes (%) (Auto) , Monocytes (%) (Auto) , Eosinophils (%) (Auto) , Basophils (%) (Auto) , Differential Total Cells Counted 100, Neutrophils % ( Manual) 40L, Lymphocytes % (Manual) 48H, Monocytes % (Manual) 7, Eosinophils % ( Manual) 5H, Basophils % (Manual) 0, Band Neutrophils 0, Platelet Estimate Adequate, Platelet Morphology Normal, Hypochromasia 4+ Height (Feet): 5 Height (Inches): 3.00 Weight (Pounds): 119 General Appearance: no apparent distress EENT: other - trach to O2 tube Cardiovascular: normal rate Respiratory/Chest: decreased breath sounds Abdomen: soft Objective no change Eric Cortez MD Apr 05, 2019 12:36
--- NOTE | 2019-04-05 13:21 | Pulmonology Progress Note ---
Assessment/Plan Assessment/Plan Impression: history of Sepsis history of Pneumonia Trach, G tube, Hypertension, Cardiac disease, Dementia, Previous CVA, Seizure disorder, Respiratory failure with hypoxia Anemia, Sacral ulcer renal cyst chronic pulmonary congestion Plan transfuse monitor for gib respiratory care same for now neb therapy to continue off vent and monitor oxygen as needed aspiration precautions to continue elevate head polymicrobial infection noted Patient is a DNR. No CPR. ICU care reviewed all changes noted hope to transfer to [place] if family agrees medications/laboratory data/nursing notes/ICU care reviewed in detail note reviewed and edited care discussed with RN and RT ICU time spent 35 minutes Subjective ROS Limited/Unobtainable: Yes Allergies: Coded Allergies: CODEINE (Verified Allergy, Unknown, HIVES, 09/15/09) Subjective respiratory care reviewed events noted overnight ICU care reviewed bed bound and obtunded noted drop in HH findings reviewed and discussed ; imaging noted Objective Last 24 Hour Vital Signs Date Time Temp Pulse Resp B/P (MAP) Pulse Ox O2 Delivery O2 Flow Rate FiO2 04/05/19 13:00 83 20 171/73 (105) 100 04/05/19 12:00 99.9 123 21 172/61 (98) 04/05/19 11:05 84 20 100 T-Piece 5.0 28 86 20 100 04/05/19 11:00 81 21 140/69 (92) 100 04/05/19 10:00 84 21 148/60 (89) 100 04/05/19 09:00 82 21 138/54 (82) 100 04/05/19 08:00 5.0 28 04/05/19 08:00 100.5 79 21 124/54 (77) 100 04/05/19 08:00 T-piece 5.0 T-piece 5.0 04/05/19 08:00 77 04/05/19 07:32 100 T-Piece 5.0 28 04/05/19 07:31 82 20 100 T-Piece 5.0 28 84 20 100 04/05/19 07:00 88 26 108/58 (75) 100 04/05/19 06:00 88 26 146/57 (86) 100 04/05/19 05:00 74 21 133/53 (79) 100 04/05/19 04:00 79 22 100 04/05/19 04:00 5.0 28 1/5/20 04:00 T-piece 5.0 T-piece 5.0 04/05/19 04:00 83 04/05/19 04:00 98.4 79 22 135/65 (88) 100 04/05/19 03:32 81 20 100 T-Piece 5.0 28 84 21 100 04/05/19 03:00 79 21 112/49 (70) 100 04/05/19 02:00 100 24 135/56 (82) 100 04/05/19 01:12 100 T-Piece 5.0 28 04/05/19 01:00 81 21 127/50 (75) 100 04/05/19 00:02 80 21 100 T-Piece 5.0 28 81 19 100 04/05/19 00:00 T-piece 5.0 T-piece 5.0 04/05/19 00:00 82 04/05/19 00:00 98.5 79 23 134/54 (80) 99 04/05/19 00:00 5.0 28 04/04/19 23:00 84 22 119/56 (77) 100 04/04/19 22:00 81 22 105/50 (68) 100 04/04/19 21:00 81 22 105/51 (69) 100 04/04/19 20:00 83 04/04/19 20:00 T-piece 5.0 T-piece 5.0 04/04/19 20:00 5.0 28 04/04/19 20:00 98.4 81 23 105/40 (61) 100 04/04/19 19:54 100 T-Piece 5.0 28 04/04/19 19:54 89 20 100 T-Piece 5.0 28 87 24 100 04/04/19 19:00 84 22 121/50 (73) 100 04/04/19 18:00 81 21 143/48 (79) 99 04/04/19 17:00 109 22 144/60 (88) 99 04/04/19 16:00 79 20 155/67 (96) 100 04/04/19 16:00 T-piece 5.0 T-piece 5.0 04/04/19 16:00 84 04/04/19 16:00 5.0 28 04/04/19 15:45 90 20 100 T-Piece 5.0 28 89 20 100 04/04/19 15:00 82 23 151/55 (87) 100 04/04/19 14:00 83 22 158/54 (88) 100 04/04/19 13:41 100 T-Piece 5.0 28 Intake and Output 04/04/19 04/05/19 19:00 07:00 Intake Total 1500 ml 1230 ml Output Total 900 ml 500 ml Balance 600 ml 730 ml Free Water 225 ml 225 ml IV Total 400 ml Tube Feeding 650 ml 780 ml Other 225 ml 225 ml Output Urine Total 600 ml 500 ml Gastric Drainage Total 300 ml # Bowel Movements 4 Objective WDWN NAD contracted off vent reduced breath sounds bilaterally with scattered rhonchi [id number] without MRG NABS nontender no HSM no CC trace edema nonfocal nonverbal trach and gt reviewed and edited Laboratory Tests 04/05/19 04:30: White Blood Count 6.6, Red Blood Count 2.62L, Hemoglobin 7.4L, Hematocrit 23.2L , Mean Corpuscular Volume 89, Mean Corpuscular Hemoglobin 28.1, Mean Corpuscular Hemoglobin Concent 31.7L, Red Cell Distribution Width 16.2H, Platelet Count 188, Mean Platelet Volume 6.2L, Neutrophils (%) (Auto) , Lymphocytes (%) (Auto) , Monocytes (%) (Auto) , Eosinophils (%) (Auto) , Basophils (%) (Auto) , Differential Total Cells Counted 100, Neutrophils % ( Manual) 50, Lymphocytes % (Manual) 37, Monocytes % (Manual) 8, Eosinophils % ( Manual) 4H, Basophils % (Manual) 1, Band Neutrophils 0, Platelet Estimate Adequate, Platelet Morphology Normal, Hypochromasia 3+, Anisocytosis 1+, Sodium Level 145, Potassium Level 3.8, Chloride Level 110H, Carbon Dioxide Level 27, Anion Gap 8, Blood Urea Nitrogen 26H, Creatinine 0.7, Estimat Glomerular Filtration Rate , Glucose Level 104#, Calcium Level 7.5L, Total Bilirubin 0.1L, Aspartate Amino Transf (AST/SGOT) 85H, Alanine Aminotransferase (ALT/SGPT) 137H , Alkaline Phosphatase 150H, Total Protein 7.1, Albumin 2.4L, Globulin 4.7, Albumin/Globulin Ratio 0.5L 04/05/19 09:30: White Blood Count 5.2, Red Blood Count 2.14L, Hemoglobin 6.0*L, Hematocrit 19.2L , Mean Corpuscular Volume 89, Mean Corpuscular Hemoglobin 28.2, Mean Corpuscular Hemoglobin Concent 31.5L, Red Cell Distribution Width 15.9H, Platelet Count 153, Mean Platelet Volume 6.7, Neutrophils (%) (Auto) , Lymphocytes (%) (Auto) , Monocytes (%) (Auto) , Eosinophils (%) (Auto) , Basophils (%) (Auto) , Differential Total Cells Counted 100, Neutrophils % ( Manual) 40L, Lymphocytes % (Manual) 48H, Monocytes % (Manual) 7, Eosinophils % ( Manual) 5H, Basophils % (Manual) 0, Band Neutrophils 0, Platelet Estimate Adequate, Platelet Morphology Normal, Hypochromasia 4+ Current Medications Medications (Trade) Dose Ordered Sig/Maicol Route PRN Reason Start Time Stop Time Status Last Admin Dose Admin Acetaminophen (Tylenol) 650 mg Q6H PRN GT Mild Pain/Temp > 100.5 03/23/19 15:15 04/22/19 15:14 04/03/19 08:55 Albuterol/ Ipratropium (Albuterol/ Ipratropium) 3 ml Q4HRT HHN 04/04/19 23:00 04/09/19 22:59 04/05/19 11:00 Atropine Sulfate (Atropine Opth Adriana) 2 drop TID SL 03/07/19 09:00 04/06/19 08:59 04/05/19 09:15 Chlorhexidine Gluconate (Cesilia-Hex 2%) 1 applic DAILY@2000 TOPIC 03/12/19 20:00 04/11/19 19:59 04/04/19 20:46 Heparin Sodium (Porcine) (Heparin 5000 units/ml) 5,000 units EVERY 12 HOURS SUBQ 04/01/19 10:00 05/01/19 09:59 04/05/19 09:28 Hydralazine HCl (Apresoline) 10 mg Q4H PRN IV For High Blood Pressure 03/12/19 09:00 04/11/19 08:59 03/18/19 18:17 Lansoprazole (Prevacid) 30 mg Q12HR GT 03/29/19 09:00 04/24/19 20:59 04/05/19 09:15 Ondansetron HCl (Zofran) 4 mg Q4H PRN IVP Nausea & Vomiting 03/18/19 18:15 04/17/19 18:14 03/21/19 08:27 Amaury Chan MD Apr 05, 2019 13:21
--- NOTE | 2019-04-05 14:07 | NUR ---
NURSE NOTES: 1/2 units PRBC'S given. pt temp ax 98.5. BP 155/59, HR 80, RR 19, 02SAT 100%. WILL CONTINUE TO MONITOR PT.
--- NOTE | 2019-04-05 14:27 | NUR ---
NURSE NOTES: 1/2 UNIT PRBC/S INFUSING. TEMP AX 98.6, HR 85, BP 164/65. PT IN NO ACUTE DISTRESS.
--- NOTE | 2019-04-05 15:02 | General Progress Note ---
Assessment/Plan Status: stable, progressing Assessment/Plan: Assessment - N/V - resolved with G --> J conversion, will d/c reglan - constipation - resolved - Elevated Alk phos / LFT - CT negative - abd U/S negative - check hepatitis serologies - negative - possibly MURRAY / Fatty liver - Anemia with OB (-) stools - Resp failure, s/p Trach - dysphagia, s/p PEG --> GJ tube - OBS, vegetative obtunded unresponsive state, bedbound with contracted extremities, - h/o minor GJ tube site irritation - Early J port occlusion, possibly due to thick diabetic TF formula - Elevated glucose - poor Prognosis Recommendations - laxative PRN - antibiotic ointment to GJT site PRN - aspiration precautions - elevate HOB - Vital AF 1.2 - check q 6 hour FS - transfuse to keep Hg > 7 - J tube feeds - G tube drain Subjective Allergies: Coded Allergies: CODEINE (Verified Allergy, Unknown, HIVES, 09/15/09) Subjective above noted tolerating TF via J port FS in the low 100's per RN (+) BM Objective Last 24 Hour Vital Signs Date Time Temp Pulse Resp B/P (MAP) Pulse Ox O2 Delivery O2 Flow Rate FiO2 04/05/19 14:00 82 23 155/59 (91) 100 04/05/19 13:43 100 T-Piece 5.0 28 04/05/19 13:00 83 20 171/73 (105) 100 04/05/19 12:00 99.9 123 21 172/61 (98) 04/05/19 12:00 T-piece 5.0 T-piece 5.0 04/05/19 12:00 5.0 28 04/05/19 12:00 83 04/05/19 11:05 84 20 100 T-Piece 5.0 28 86 20 100 04/05/19 11:00 81 21 140/69 (92) 100 04/05/19 10:00 84 21 148/60 (89) 100 04/05/19 09:00 82 21 138/54 (82) 100 04/05/19 08:00 5.0 28 04/05/19 08:00 100.5 79 21 124/54 (77) 100 04/05/19 08:00 T-piece 5.0 T-piece 5.0 1/5/20 08:00 77 04/05/19 07:32 100 T-Piece 5.0 28 04/05/19 07:31 82 20 100 T-Piece 5.0 28 84 20 100 04/05/19 07:00 88 26 108/58 (75) 100 04/05/19 06:00 88 26 146/57 (86) 100 04/05/19 05:00 74 21 133/53 (79) 100 04/05/19 04:00 79 22 100 04/05/19 04:00 5.0 28 04/05/19 04:00 T-piece 5.0 T-piece 5.0 04/05/19 04:00 83 04/05/19 04:00 98.4 79 22 135/65 (88) 100 04/05/19 03:32 81 20 100 T-Piece 5.0 28 84 21 100 04/05/19 03:00 79 21 112/49 (70) 100 04/05/19 02:00 100 24 135/56 (82) 100 04/05/19 01:12 100 T-Piece 5.0 28 04/05/19 01:00 81 21 127/50 (75) 100 04/05/19 00:02 80 21 100 T-Piece 5.0 28 81 19 100 04/05/19 00:00 T-piece 5.0 T-piece 5.0 04/05/19 00:00 82 04/05/19 00:00 98.5 79 23 134/54 (80) 99 04/05/19 00:00 5.0 28 04/04/19 23:00 84 22 119/56 (77) 100 04/04/19 22:00 81 22 105/50 (68) 100 04/04/19 21:00 81 22 105/51 (69) 100 04/04/19 20:00 83 04/04/19 20:00 T-piece 5.0 T-piece 5.0 04/04/19 20:00 5.0 28 04/04/19 20:00 98.4 81 23 105/40 (61) 100 04/04/19 19:54 100 T-Piece 5.0 28 04/04/19 19:54 89 20 100 T-Piece 5.0 28 87 24 100 04/04/19 19:00 84 22 121/50 (73) 100 04/04/19 18:00 81 21 143/48 (79) 99 04/04/19 17:00 109 22 144/60 (88) 99 04/04/19 16:00 79 20 155/67 (96) 100 04/04/19 16:00 T-piece 5.0 T-piece 5.0 04/04/19 16:00 84 04/04/19 16:00 5.0 28 04/04/19 15:45 90 20 100 T-Piece 5.0 28 89 20 100 Intake and Output 04/04/19 04/05/19 19:00 07:00 Intake Total 1500 ml 1230 ml Output Total 900 ml 500 ml Balance 600 ml 730 ml Free Water 225 ml 225 ml IV Total 400 ml Tube Feeding 650 ml 780 ml Other 225 ml 225 ml Output Urine Total 600 ml 500 ml Gastric Drainage Total 300 ml # Bowel Movements 4 Laboratory Tests 04/05/19 04:30: White Blood Count 6.6, Red Blood Count 2.62L, Hemoglobin 7.4L, Hematocrit 23.2L , Mean Corpuscular Volume 89, Mean Corpuscular Hemoglobin 28.1, Mean Corpuscular Hemoglobin Concent 31.7L, Red Cell Distribution Width 16.2H, Platelet Count 188, Mean Platelet Volume 6.2L, Neutrophils (%) (Auto) , Lymphocytes (%) (Auto) , Monocytes (%) (Auto) , Eosinophils (%) (Auto) , Basophils (%) (Auto) , Differential Total Cells Counted 100, Neutrophils % ( Manual) 50, Lymphocytes % (Manual) 37, Monocytes % (Manual) 8, Eosinophils % ( Manual) 4H, Basophils % (Manual) 1, Band Neutrophils 0, Platelet Estimate Adequate, Platelet Morphology Normal, Hypochromasia 3+, Anisocytosis 1+, Sodium Level 145, Potassium Level 3.8, Chloride Level 110H, Carbon Dioxide Level 27, Anion Gap 8, Blood Urea Nitrogen 26H, Creatinine 0.7, Estimat Glomerular Filtration Rate , Glucose Level 104#, Calcium Level 7.5L, Total Bilirubin 0.1L, Aspartate Amino Transf (AST/SGOT) 85H, Alanine Aminotransferase (ALT/SGPT) 137H , Alkaline Phosphatase 150H, Total Protein 7.1, Albumin 2.4L, Globulin 4.7, Albumin/Globulin Ratio 0.5L 04/05/19 09:30: White Blood Count 5.2, Red Blood Count 2.14L, Hemoglobin 6.0*L, Hematocrit 19.2L , Mean Corpuscular Volume 89, Mean Corpuscular Hemoglobin 28.2, Mean Corpuscular Hemoglobin Concent 31.5L, Red Cell Distribution Width 15.9H, Platelet Count 153, Mean Platelet Volume 6.7, Neutrophils (%) (Auto) , Lymphocytes (%) (Auto) , Monocytes (%) (Auto) , Eosinophils (%) (Auto) , Basophils (%) (Auto) , Differential Total Cells Counted 100, Neutrophils % ( Manual) 40L, Lymphocytes % (Manual) 48H, Monocytes % (Manual) 7, Eosinophils % ( Manual) 5H, Basophils % (Manual) 0, Band Neutrophils 0, Platelet Estimate Adequate, Platelet Morphology Normal, Hypochromasia 4+ Height (Feet): 5 Height (Inches): 3.00 Weight (Pounds): 119 Objective Debilitated AA woman non-verbal, obtunded NCAT (+) trach coarse BS RR obese abd, (+) GJT no edema (+) contractured extremities Celio Vaughan MD Apr 05, 2019 15:02
[2019-04-05] MEDS ORDERED: Tubing Blood Filter IV ONE (15:45)
[2019-04-05] MEDS ORDERED: NS 275ml ONE (15:45)
--- NOTE | 2019-04-05 18:15 | NUR ---
NURSE NOTES: 1/2 INFUSED. FLUSHED LINE W/ 200 ML/ BP 133/63, HR 76. PT IN NO ACUTE DISTRESS.
--- NOTE | 2019-04-05 19:30 | NUR ---
NURSE NOTES: Report received from JEANNINE Miller. Patient in bed with EYES OPEN but-non verbal. SR on manager monitoring hr 75. On T-piece 28%, saturating at 100%. No s/s of acute distress noted no s/s of hypo/hyperglycemia. Jtube running vital AF 1.2 at 30cc/hr GOAL 65CC/HR NO RESIDUAL. Gtube to gravity, yellowish discharge draining noted. Purewick in placed. PICC at JOSY, intact and TKO noted. Bed in the lowest position. Side rails up x3. Contact isolation maintained nad observed.Will continue to monitor.
--- NOTE | 2019-04-05 19:40 | NUR ---
HAND-OFF: Report given to Umm Ramos endorsed second bag of prbcs. pt in no acute distress
--- NOTE | 2019-04-05 20:08 | Surgery Progress Note ---
Surgery Progress Note Subjective Additional Comments no acute events pending placement Objective Last 24 Hour Vital Signs Date Time Temp Pulse Resp B/P (MAP) Pulse Ox O2 Delivery O2 Flow Rate FiO2 04/05/19 19:37 84 21 100 T-Piece 5.0 28 80 20 100 04/05/19 19:37 100 T-Piece 5.0 28 04/05/19 19:00 78 23 153/66 (95) 100 04/05/19 18:00 79 23 133/63 (86) 100 04/05/19 17:00 82 21 166/70 (102) 100 04/05/19 16:00 77 04/05/19 16:00 5.0 28 04/05/19 16:00 98.6 80 21 163/64 (97) 100 04/05/19 16:00 T-piece 5.0 T-piece 5.0 04/05/19 15:55 86 20 100 T-Piece 5.0 28 81 20 100 04/05/19 15:00 80 20 150/58 (88) 100 04/05/19 14:00 82 23 155/59 (91) 100 04/05/19 13:43 100 T-Piece 5.0 28 04/05/19 13:00 83 20 171/73 (105) 100 04/05/19 12:00 99.9 123 21 172/61 (98) 04/05/19 12:00 T-piece 5.0 T-piece 5.0 04/05/19 12:00 5.0 28 04/05/19 12:00 83 04/05/19 11:05 84 20 100 T-Piece 5.0 28 86 20 100 04/05/19 11:00 81 21 140/69 (92) 100 04/05/19 10:00 84 21 148/60 (89) 100 04/05/19 09:00 82 21 138/54 (82) 100 04/05/19 08:00 5.0 28 04/05/19 08:00 100.5 79 21 124/54 (77) 100 04/05/19 08:00 T-piece 5.0 T-piece 5.0 04/05/19 08:00 77 04/05/19 07:32 100 T-Piece 5.0 28 04/05/19 07:31 82 20 100 T-Piece 5.0 28 84 20 100 04/05/19 07:00 88 26 108/58 (75) 100 04/05/19 06:00 88 26 146/57 (86) 100 04/05/19 05:00 74 21 133/53 (79) 100 04/05/19 04:00 79 22 100 04/05/19 04:00 5.0 28 04/05/19 04:00 T-piece 5.0 T-piece 5.0 04/05/19 04:00 83 04/05/19 04:00 98.4 79 22 135/65 (88) 100 04/05/19 03:32 81 20 100 T-Piece 5.0 28 84 21 100 04/05/19 03:00 79 21 112/49 (70) 100 04/05/19 02:00 100 24 135/56 (82) 100 04/05/19 01:12 100 T-Piece 5.0 28 04/05/19 01:00 81 21 127/50 (75) 100 04/05/19 00:02 80 21 100 T-Piece 5.0 28 81 19 100 04/05/19 00:00 T-piece 5.0 T-piece 5.0 04/05/19 00:00 82 04/05/19 00:00 98.5 79 23 134/54 (80) 99 04/05/19 00:00 5.0 28 04/04/19 23:00 84 22 119/56 (77) 100 04/04/19 22:00 81 22 105/50 (68) 100 04/04/19 21:00 81 22 105/51 (69) 100 I&O Intake and Output 04/04/19 04/05/19 19:00 07:00 Intake Total 1500 ml 1230 ml Output Total 900 ml 500 ml Balance 600 ml 730 ml Free Water 225 ml 225 ml IV Total 400 ml Tube Feeding 650 ml 780 ml Other 225 ml 225 ml Output Urine Total 600 ml 500 ml Gastric Drainage Total 300 ml # Bowel Movements 4 Dressing: dry Wound: clean Cardiovascular: RSR Respiratory: clear Abdomen: soft, non-tender, present bowel sounds Extremities: no edema, no tenderness, no cyanosis Laboratory Tests Test 04/05/19 04:30 04/05/19 09:30 White Blood Count 6.6 K/UL (4.8-10.8) 5.2 K/UL (4.8-10.8) Red Blood Count 2.62 M/UL (4.20-5.40) L 2.14 M/UL (4.20-5.40) L Hemoglobin 7.4 G/DL (12.0-16.0) L 6.0 G/DL (12.0-16.0) *L Hematocrit 23.2 % (37.0-47.0) L 19.2 % (37.0-47.0) L Mean Corpuscular Volume 89 FL (80-99) 89 FL (80-99) Mean Corpuscular Hemoglobin 28.1 PG (27.0-31.0) 28.2 PG (27.0-31.0) Mean Corpuscular Hemoglobin Concent 31.7 G/DL (32.0-36.0) L 31.5 G/DL (32.0-36.0) L Red Cell Distribution Width 16.2 % (11.6-14.8) H 15.9 % (11.6-14.8) H Platelet Count 188 K/UL (150-450) 153 K/UL (150-450) Mean Platelet Volume 6.2 FL (6.5-10.1) L 6.7 FL (6.5-10.1) Neutrophils (%) (Auto) % (45.0-75.0) % (45.0-75.0) Lymphocytes (%) (Auto) % (20.0-45.0) % (20.0-45.0) Monocytes (%) (Auto) % (1.0-10.0) % (1.0-10.0) Eosinophils (%) (Auto) % (0.0-3.0) % (0.0-3.0) Basophils (%) (Auto) % (0.0-2.0) % (0.0-2.0) Differential Total Cells Counted 100 100 Neutrophils % (Manual) 50 % (45-75) 40 % (45-75) L Lymphocytes % (Manual) 37 % (20-45) 48 % (20-45) H Monocytes % (Manual) 8 % (1-10) 7 % (1-10) Eosinophils % (Manual) 4 % (0-3) H 5 % (0-3) H Basophils % (Manual) 1 % (0-2) 0 % (0-2) Band Neutrophils 0 % (0-8) 0 % (0-8) Platelet Estimate Adequate Adequate Platelet Morphology Normal Normal Hypochromasia 3+ 4+ Anisocytosis 1+ Sodium Level 145 MMOL/L (136-145) Potassium Level 3.8 MMOL/L (3.5-5.1) Chloride Level 110 MMOL/L (98-107) H Carbon Dioxide Level 27 MMOL/L (21-32) Anion Gap 8 mmol/L (5-15) Blood Urea Nitrogen 26 mg/dL (7-18) H Creatinine 0.7 MG/DL (0.55-1.30) Estimat Glomerular Filtration Rate mL/min (>60) Glucose Level 104 MG/DL (74-106) # Calcium Level 7.5 MG/DL (8.5-10.1) L Total Bilirubin 0.1 MG/DL (0.2-1.0) L Aspartate Amino Transf (AST/SGOT) 85 U/L (15-37) H Alanine Aminotransferase (ALT/SGPT) 137 U/L (12-78) H Alkaline Phosphatase 150 U/L (46-116) H Total Protein 7.1 G/DL (6.4-8.2) Albumin 2.4 G/DL (3.4-5.0) L Globulin 4.7 g/dL Albumin/Globulin Ratio 0.5 (1.0-2.7) L Plan Problems: (1) Sacral decubitus ulcer Assessment & Plan: This is a 83-year-old female with multiple medical committees that is currently admitted for medical care and management and identified to have multiple wounds requiring care. On admission patient noted to have a resolved sacral decubitus ulcer. Has had prior care and is well-healed at this time. Will ensure it does not open up again. Patient has a right ischial decubitus ulcer that is resolved. Scar intact and well formed. Will monitor to ensure it does not open up again. Patient has a left ischial decubitus ulcer that can be identified to be stage IV with palpable bone that has been resolving as noted by the periwound tissue and scar but open area approximately 1 cm x 1.5 cm few millimeters deep to bone identified. Unsure if this is been to be completely healed prior and has since opened or if has been healing at this level. No foul odor no drainage was unsure local wound care until healed Bilateral heels soft without signs of injury Resolving pressure injury L ischium(L)1.8cm x (W)1cm.Scattered biofilm at base of wound. Edges flat and adherent with surrounding hyperpigmentation. No odor or exudate noted. Sacrum is pale pink with surrounding hyperpigmentation. Hyperpigmentation R ischium with small sheared area centrally.No areas of erythema or exudate noted. Both heels are soft but blanchable. Skin Assessed under collar of trach and no evidence of skin breakdown noted. All wound Tx. are effective and continued as ordered. Pt ahs an APM/Belén mattress overlay and is being repositioned per protocols and per tolerance.No new skin concerns noted. Full thickness pressure injury L Ischium with small amt biofilm (L)1.8cm x (W) 1cm. Surrounding pink hyperpigmentation. No odor or exudate noted. Pesotum hyperpigmentation from previous wound noted to sacrum. Pt also noted to have Cat 2 Skin Tear dorsal L hand, L 5th metatarsal extending into palm of hand. 80% skin flap in situ.Both heels are dry firm and blanchable. No other skin concerns noted. R ischial wound has resolved. Pesotum epithelial with surrounding hyperpigmentation. from historical wound. Full thickness pressure injury L ischium. Pesotum granulation at base of wound. Borders are macerated with Surrounding hyperpigmentation.Small amt non-odorous serous exudate noted.(L)0.7cm x (W)0.8cm. Skin hyperpigmentation from historical wound noted to Sacrum. Small sheared area noted to sacrococcygeal area.(L)0.4cm x (W)0.3cm.Small amt sanguineous exudate noted. Reabsorbed blister with semi-detached dry necrotic cap noted to web space of L thumb and L index fingers extending into palm of L hand. No odor or exudate noted. Skin assessed under tracheal collar and no erythema or evidence of Skin Breakdown noted. NO new skin concerns noted . Good hand hygiene provided to both hands. R hand contracted and fisted. Fingernails trimmed. Wound care provided along with Primary nurse. Wound Tx continued as ordered. New order obtained from to apply Betadine to wound L hand Daily. Tx done as ordered. L hand wrapped with kerlix weaving kerlix between fingers to separate fingers. Moisture Barrier applied to sacrum ,R ischium. Each site covered with Optifoam drsg. Both lower ext washed and moisturized. Cavilon Skin Barrier applied to both heels.Each heel covered with Optifoam drsgs. Pt positioned with pillows and both heels off-loaded with pillow. Tx.Plan: Apply Betadine to wound L hand. Cover with Gauze and wrap with Kerlix Daily and prn. Cleanse L ischial wound with Saline. Apply Therahoney. Apply Moisture Barrier periwound. Cover with Optifoam drsgevery 3 days and prn. Apply Moisture Barrier Paste to R ischium and Sacrum. Cover each area with Optifoam drsg. Change every 3 days and prn. Apply Cavilon Skin Barrier to both heels. Cover each heel with Optifoam drsg. Change every 7 days and prn. APM/BELÉN Mattress overlay. Reposition at least every 2hours or as tolerated. Off-load heels with pillow. Cleanse Blister Dorsal and palm of L hand with saline. Versatel One Silicone Contact Layer(Applied). Apply Silvasorb Gel. Wrap with Kerlix Gauze.Change every 7 days and prn. Apply Moisture Barrier to sacrum. Cover with Optifoam drsg. Change every 3 days and prn. Cleanse L ischial wound with saline. Apply Therahoney. Apply Moisture Barrier Paste periwound. Cover with Optifoam drsg. Change every 3 days and prn. Apply Cavilon Skin Barrier to both heels. Cover each heel with Optifoam drsg. Change every 7 days and prn. APM/BELÉN Mattress overlay. Reposition at least every 2hours or as tolerated. Off-load heels with pillow. Nutritional optimization We will monitor follow with recommendations cont with above upon d/c (2) Sepsis Assessment & Plan: IV abx as per ID trend labs improving wounds unlikely etiology likely respiratory imaging noted and okay abnormal lft's stable PICC on Abx in ICU for desaturation CXR with consolidation cont with frequent suctioning d/c planning g j via GI daughter wants close attention to wounds and management to ensure healing Evidence of left lower lobe pneumonia, also previously demonstrated Gastrostomy in good position Mild diastasis of the rectus abdominis musculature again demonstrated Retrosacral decubitus changes, better depicted on prior exam which included the pelvis Small hiatal hernia with evidence of trace gastroesophageal reflux Discussed with GI. Recommend GJ family still pending decision (3) Feeding by G-tube Assessment & Plan: DAILY ESTIMATED NEEDS: Needs based on Pulmonary, wounds, bedbound/ 61kg adj 25-30 kcals/kg 0080-4225 total kcals 1.25-2 g protein/kg 76-122 g total protein 25-30 mL/kg 2664-7348 total fluid mLs NUTRITION DIAGNOSIS: * Increased kcal/prot needs R/T wound healing as evidenced by BL buttocks and sacral wound photos, refer to eval. * Swallowing difficulty R/T respiratory status as evidenced by pt on T-collar, s/p G-J conversion CURRENT TF:Glucerna 1.5 @ 50ml/hr x 24 hrs ENTERAL NUTRITION RECOMMENDATIONS: Glucerna 1.5 @ 50ml/hr x 24 hrs to provide 1200ml, 1800 kcal, 99g pro, 911ml free H2O - Maintain at current rate as tolerated to meet 100% est needs - HOB over 30 degrees - INCREASE water flush of 170ml q 6 hrs ADDITIONAL RECOMMENDATIONS: 1) RE-calibrate bedscale wt: fluctuating daily wts (108#-136# last 6 days) 2) Wound healing: Add Cristian 1pkt BID w/ continued good TF tolerance. 3) Increase water flushes, monitor for signs of water deficits 4) Monitor BGs closely, need for NISS -> now w/ improved BGs 5) Monitor for continued good TF tolerance 6) Monitor K : elev K on 03/25, s/p Kdur BID, now dc'ed. (4) Chronic vegetative state Assessment & Plan: incontinence of urine and stool. can soil dressings. nurses doing great job with monitoring and changing prn (5) Leukocytosis Walter [place] Apr 05, 2019 20:08
[2019-04-05] MEDS: Dyna-Hex 2% Top Sol 2oz TOPIC SCH (20:13)
--- NOTE | 2019-04-05 21:28 | NUR ---
NURSE NOTES: #2 PRBC started no adverse reaction noted. No fever Temp 98.4 axillary. No s/s of acute distress noted. Oral care and suctioned patient. Turned and repositioned patient. will continue to monitor.
--- NOTE | 2019-04-05 23:43 | NUR ---
NURSE NOTES: Completed #2 blood transfusion, no adverse reaction noted. no fever. no s/s of acute distress noted.
[2019-04-06] VITALS (24 sets, daily range): BP systolic 95–164; BP diastolic 47–122
[2019-04-06] MEDS: Albuterol/Ipratropium 3ml neb HHN SCH ×7 (00:34→23:18)
--- NOTE | 2019-04-06 02:00 | NUR ---
NURSE NOTES: Patient in bed sleeping comfortably. no s/s of acute distress noted. No fever. no n/v no diarrhea. Turned and repositioned. no s/s of hypo/hyperglycemia. will continue to monitor patient.
[2019-04-06] MEDS ORDERED: HydrALAZINE 25mg tab ORAL PRN (02:45)
--- NOTE | 2019-04-06 03:00 | Progress Note ---
DATE: 04/05/2019 CARDIOLOGY PROGRESS NOTE SUBJECTIVE: The patient remains at baseline, comatose state, on T-collar. Blood counts have noted dropped today. Repeated hemoglobin is 6. No signs of active bleeding. OBJECTIVE: VITAL SIGNS: Blood pressure 141/50, pulse 80, respiratory rate 20. LUNGS: Bilateral breath sounds. CARDIAC: Regular rhythm and rate. Normal S1 and S2. ABDOMEN: Soft. GJ tube intact. EXTREMITIES: Trace edema. LABORATORY DATA: Potassium 3.8. Liver function studies remain elevated with alkaline phosphatase of 150, albumin 2.4. IMPRESSION: 1. Anemia. 2. Chronic diastolic congestive heart failure. 3. Respiratory failure. 4. Status post GJ tube. 5. Transaminitis. 6. Probable fatty liver. 7. Cholestasis. 8. Severe protein-calorie malnutrition. 9. Secondary sinus tachycardia. PLAN: 1. Packed red blood cell transfusions. 2. Diuresis x1. 3. Follow-up liver function. 4. Continue p.r.n. hydralazine for blood pressure spikes. 5. No beta-martha therapy at the daughter's request. Bg Hagen M.D. DR: GRACE JOB#: [id number] CC:
--- NOTE | 2019-04-06 03:00 | Progress Note ---
DATE: 04/04/2019 CARDIOLOGY PROGRESS NOTE SUBJECTIVE: The patient on T-tube. Monitored rhythm sinus, episodes of sinus tachycardia, nonsustained. OBJECTIVE: VITAL SIGNS: Blood pressure 158/54, pulse 83, respiratory rate 22. LUNGS: Bilateral breath sounds. Few secretions. CARDIAC: Regular rhythm and rate. Normal S1 and S2. ABDOMEN: Soft. GJ tube intact. No drainage. EXTREMITIES: No edema. LABORATORY DATA: Potassium 3.7, BUN 23, creatinine 0.8, glucose 442, albumin 2.4. Liver function tests elevated now. IMPRESSION: 1. Respiratory failure, status post GJ tube. 2. Transaminitis. 3. Paroxysmal sinus tachycardia. 4. Chronic diastolic congestive heart failure. PLAN: 1. Check abdominal ultrasound. 2. Observe for signs of hepatobiliary obstruction. 3. Off beta-martha. 4. Monitor for rising of blood pressure trend. 5. resumption of beta-martha. 6. Monitor volume status and cardiorenal function. 7. Diuresis based on clinical parameters. Bg Hagen M.D. DR: GRACE JOB#: [id number] CC:
--- NOTE | 2019-04-06 03:21 | NUR ---
NURSE NOTES: DR VUOGN PLACED AN ORDER Lasix 2Ml ivp.
--- NOTE | 2019-04-06 05:20 | NUR ---
NURSE NOTES: Bed bath given tolerated well. Right upper arm PICC line intact no s/s of infiltration. no fever. Turned and repositioned. oral care and suctioned patient. no bleeding.
[2019-04-06 06:08] LABS: BASOPHILS % (AUTO) 0.8 % (0.0-2.0); EOSINOPHILS % (AUTO) 5.2 % (0.0-3.0); HEMATOCRIT 35.5 % (37.0-47.0); HEMOGLOBIN 11.9 G/DL (12.0-16.0); LYMPHOCYTES % (AUTO) 33.5 % (20.0-45.0); MEAN CORPUSCULAR VOLUME 89 FL (80-99); MONOCYTES % (AUTO) 6.6 % (1.0-10.0); NEUTROPHILS % (AUTO) 53.9 % (45.0-75.0); PLATELET COUNT 221 K/UL (150-450); RED BLOOD COUNT 3.98 M/UL (4.20-5.40); RED CELL DISTRIBUTION WIDTH 15.1 % (11.6-14.8)
[2019-04-06 06:42] LABS: ALANINE AMINOTRANSFERASE 116 U/L (12-78); ALBUMIN 2.9 G/DL (3.4-5.0); ALBUMIN/GLOBULIN RATIO 0.5 (1.0-2.7); ALKALINE PHOSPHATASE 150 U/L (46-116); ANION GAP 7 mmol/L (5-15); ASPARTATE AMINO TRANSFERASE 55 U/L (15-37); BILIRUBIN,TOTAL 0.3 MG/DL (0.2-1.0); BLOOD UREA NITROGEN 25 mg/dL (7-18); CALCIUM 8.7 MG/DL (8.5-10.1); CARBON DIOXIDE 30 MMOL/L (21-32); CHLORIDE 107 MMOL/L (98-107); CREATININE 0.8 MG/DL (0.55-1.30); POTASSIUM 3.7 MMOL/L (3.5-5.1); SODIUM 144 MMOL/L (136-145)
--- NOTE | 2019-04-06 07:15 | NUR ---
HAND-OFF: Report given to Sandy APEZ.
--- NOTE | 2019-04-06 07:15 | NUR ---
NURSE NOTES: Pt received from JEANNINE Salomon in stable condition without cardiopulmonary distress noted. Pt is awake in bed, opens eyes spontaneouslky but does not follow commands or track eyes, pupils are equal and round (4mm) and sluggish to light reaction. Bilat upper ext noted contracted. Bilat lower ext noted stiff. Pt noted SR to radiographer cardiac catheterization with HR 65-70 bpm. Radial pulses #+ bilaterally and dorsalis pedis pulses 1+ bilaterally. Skin is warm to touch. Pt has a T-piece Shiley 6 FiO2 25% 5L O2. Bilateral upper lobes noted with fine crackles upon auscultation and bilat lower lobes noted diminished. Pt has moderate amount of secretions noted through T-piece and was suctioned with no acute distress. Pt has been NPO since 0000 for shceduled ABD US. G-J tube noted. The J tube is clamped and G tube is connected to drainage bag to gravity draining yellow, clear secretions. Pt has a purewick noted draining yellow urine. Pt has a JOSY PICC running NS TKO at 3cc/hr. Skin alterations are noted. Bed is in lowest position, alarm on, side rails up 2 and padded per seizure precaution, call light within reach, will continue to monitor. Dr Beltrán aware heparin held for this morning. Addendum: 04/06/19 at 0825 by Sandy Chi RN Late entry: bowel sounds noted active to all abd quadrants. Addendum: 04/06/19 at 0965 by Sandy Chi RN Amendment: bilateral radial pulses 2+ bilaterally
--- NOTE | 2019-04-06 08:00 | NUR ---
NURSE NOTES: Oral care provided, pt repositioned and in no acute distress at this time. Pt still NPO pending ABD US. Will continue to monitor.
[2019-04-06] MEDS: Heparin 5000 units/ml inj SUBQ SCH ×2 (08:13→20:07)
--- NOTE | 2019-04-06 08:45 | Pulmonology Progress Note ---
Assessment/Plan Assessment/Plan Impression: history of Sepsis history of Pneumonia Trach, G tube, Hypertension, Cardiac disease, Dementia, Previous CVA, Seizure disorder, Respiratory failure with hypoxia Anemia, Sacral ulcer renal cyst chronic pulmonary congestion Plan respiratory care same for now HH improved neb therapy to continue off vent and monitor as is oxygen as needed aspiration precautions to continue elevate head polymicrobial infection noted Patient is a DNR. No CPR. ICU care reviewed all changes noted hope to transfer to [place] if family agrees medications/laboratory data/nursing notes/ICU care reviewed in detail note reviewed and edited care discussed with RN and RT ICU time spent 35 minutes Subjective ROS Limited/Unobtainable: Yes Allergies: Coded Allergies: CODEINE (Verified Allergy, Unknown, HIVES, 09/15/09) Subjective respiratory care reviewed events noted overnight ICU care reviewed bed bound and obtunded s/p transfusion findings reviewed Objective Last 24 Hour Vital Signs Date Time Temp Pulse Resp B/P (MAP) Pulse Ox O2 Delivery O2 Flow Rate FiO2 04/06/19 07:03 100 T-Piece 5.0 28 04/06/19 07:02 62 20 100 T-Piece 5.0 28 59 20 100 04/06/19 07:00 62 21 141/122 (128) 100 04/06/19 06:00 70 23 145/61 (89) 100 04/06/19 05:00 69 19 114/98 (103) 100 04/06/19 04:00 5.0 28 04/06/19 04:00 T-piece 5.0 T-piece 5.0 04/06/19 04:00 98.4 66 20 130/112 (118) 100 04/06/19 04:00 76 04/06/19 03:06 84 20 100 T-Piece 5.0 28 78 21 100 04/06/19 03:00 70 20 118/57 (77) 100 04/06/19 02:19 104 29 134/97 (109) 100 04/06/19 01:30 100 T-Piece 5.0 28 04/06/19 01:00 73 20 152/69 (96) 100 04/06/19 00:35 81 20 100 T-Piece 5.0 28 78 22 100 04/06/19 00:00 71 04/06/19 00:00 5.0 28 04/06/19 00:00 T-piece 5.0 T-piece 5.0 04/06/19 00:00 98.6 73 23 118/49 (72) 100 04/05/19 23:00 82 20 159/70 (99) 100 04/05/19 22:00 79 22 138/60 (86) 100 04/05/19 21:00 80 20 141/50 (80) 100 04/05/19 20:00 T-piece 5.0 T-piece 5.0 04/05/19 20:00 5.0 28 04/05/19 20:00 76 04/05/19 20:00 98.4 71 21 145/41 (75) 100 04/05/19 19:37 84 21 100 T-Piece 5.0 28 80 20 100 04/05/19 19:37 100 T-Piece 5.0 28 04/05/19 19:00 78 23 153/66 (95) 100 04/05/19 18:00 79 23 133/63 (86) 100 04/05/19 17:00 82 21 166/70 (102) 100 04/05/19 16:00 77 04/05/19 16:00 5.0 28 04/05/19 16:00 98.6 80 21 163/64 (97) 100 04/05/19 16:00 T-piece 5.0 T-piece 5.0 04/05/19 15:55 86 20 100 T-Piece 5.0 28 81 20 100 04/05/19 15:00 80 20 150/58 (88) 100 04/05/19 14:00 82 23 155/59 (91) 100 04/05/19 13:43 100 T-Piece 5.0 28 04/05/19 13:00 83 20 171/73 (105) 100 04/05/19 12:00 99.9 123 21 172/61 (98) 04/05/19 12:00 T-piece 5.0 T-piece 5.0 04/05/19 12:00 5.0 28 04/05/19 12:00 83 04/05/19 11:05 84 20 100 T-Piece 5.0 28 86 20 100 04/05/19 11:00 81 21 140/69 (92) 100 04/05/19 10:00 84 21 148/60 (89) 100 04/05/19 09:00 82 21 138/54 (82) 100 Intake and Output 04/05/19 04/06/19 19:00 07:00 Intake Total 1190 ml 880 ml Output Total 810 ml 1000 ml Balance 380 ml -120 ml Free Water 225 ml 225 ml Tube Feeding 740 ml 180 ml Blood Product 250 ml Other 225 ml 225 ml Output Urine Total 550 ml 1000 ml Gastric Drainage Total 260 ml # Bowel Movements 4 Objective WDWN NAD contracted off vent reduced breath sounds bilaterally with scattered rhonchi [id number] without MRG NABS nontender no HSM no CC trace edema nonfocal nonverbal trach and gt reviewed and edited Laboratory Tests 04/05/19 09:30: White Blood Count 5.2, Red Blood Count 2.14L, Hemoglobin 6.0*L, Hematocrit 19.2L , Mean Corpuscular Volume 89, Mean Corpuscular Hemoglobin 28.2, Mean Corpuscular Hemoglobin Concent 31.5L, Red Cell Distribution Width 15.9H, Platelet Count 153, Mean Platelet Volume 6.7, Neutrophils (%) (Auto) , Lymphocytes (%) (Auto) , Monocytes (%) (Auto) , Eosinophils (%) (Auto) , Basophils (%) (Auto) , Differential Total Cells Counted 100, Neutrophils % ( Manual) 40L, Lymphocytes % (Manual) 48H, Monocytes % (Manual) 7, Eosinophils % ( Manual) 5H, Basophils % (Manual) 0, Band Neutrophils 0, Platelet Estimate Adequate, Platelet Morphology Normal, Hypochromasia 4+ 04/06/19 05:00: White Blood Count 8.0#, Red Blood Count 3.98L, Hemoglobin 11.9#L, Hematocrit 35.5#L, Mean Corpuscular Volume 89, Mean Corpuscular Hemoglobin 29.9, Mean Corpuscular Hemoglobin Concent 33.4, Red Cell Distribution Width 15.1H, Platelet Count 221, Mean Platelet Volume 7.0, Neutrophils (%) (Auto) 53.9, Lymphocytes (%) (Auto) 33.5, Monocytes (%) (Auto) 6.6, Eosinophils (%) (Auto) 5.2H, Basophils (%) (Auto) 0.8, Sodium Level 144, Potassium Level 3.7, Chloride Level 107, Carbon Dioxide Level 30, Anion Gap 7, Blood Urea Nitrogen 25H, Creatinine 0.8, Estimat Glomerular Filtration Rate , Glucose Level 85, Calcium Level 8.7, Magnesium Level 1.6L, Total Bilirubin 0.3, Aspartate Amino Transf ( AST/SGOT) 55H, Alanine Aminotransferase (ALT/SGPT) 116H, Alkaline Phosphatase 150H, Pro-B-Type Natriuretic Peptide 204H, Total Protein 8.2, Albumin 2.9L, Globulin 5.3, Albumin/Globulin Ratio 0.5L Current Medications Medications (Trade) Dose Ordered Sig/Maicol Route PRN Reason Start Time Stop Time Status Last Admin Dose Admin Acetaminophen (Tylenol) 650 mg Q6H PRN GT Mild Pain/Temp > 100.5 03/23/19 15:15 04/22/19 15:14 04/03/19 08:55 Albuterol/ Ipratropium (Albuterol/ Ipratropium) 3 ml Q4HRT HHN 04/04/19 23:00 04/09/19 22:59 04/06/19 07:02 Atropine Sulfate (Atropine Opth Adriana) 2 drop TID SL 03/07/19 09:00 04/06/19 08:59 04/05/19 18:19 Chlorhexidine Gluconate (Cesilia-Hex 2%) 1 applic DAILY@2000 TOPIC 03/12/19 20:00 04/11/19 19:59 04/05/19 20:13 Heparin Sodium (Porcine) (Heparin 5000 units/ml) 5,000 units EVERY 12 HOURS SUBQ 04/01/19 10:00 05/01/19 09:59 04/05/19 09:28 Hydralazine HCl (Apresoline) 25 mg Q6H PRN ORAL SBP above 150 04/06/19 02:45 05/06/19 02:44 Lansoprazole (Prevacid) 30 mg Q12HR GT 03/29/19 09:00 04/24/19 20:59 04/06/19 08:13 Magnesium Sulfate 100 ml @ 100 mls/hr Q1H IVPB 04/06/19 08:45 04/06/19 10:44 Ondansetron HCl (Zofran) 4 mg Q4H PRN IVP Nausea & Vomiting 03/18/19 18:15 04/17/19 18:14 03/21/19 08:27 Amaury Cahn MD Apr 06, 2019 08:45
--- NOTE | 2019-04-06 10:00 | NUR ---
NURSE NOTES: Pt awake in bed, opens eyes spontaneously, no s/s of pain or distress noted at this time. Pt repositioned. VS noted stable and charted. Will continue to monitor.
--- NOTE | 2019-04-06 10:22 | Nephrology Progress Note ---
Assessment/Plan Problem List: (1) Acute renal failure (ARF) Assessment: Cr stable (2) Chronic respiratory failure (3) Anemia (4) Sepsis Assessment Acute renal failure Respiratory failure - Trach Low Mag- Low k , Low Na Anemia UTI / Sepsis Proteinuria / HypoAlbuminemia high Trigs Sz decubs bed bound DNR Plan Transfused now has JT bolus Albumin as needed K and Mag and Phos supplement as needed Hydrate as needed Urine studies avoid Nephrotoxics mag K Phos supplements as needed monitor renal parameters Subjective ROS Limited/Unobtainable: Yes Objective Objective Last 24 Hour Vital Signs Date Time Temp Pulse Resp B/P (MAP) Pulse Ox O2 Delivery O2 Flow Rate FiO2 04/06/19 10:00 79 14 152/63 (92) 100 04/06/19 09:00 64 18 157/97 (117) 100 04/06/19 08:00 57 04/06/19 08:00 5.0 28 04/06/19 08:00 T-piece 5.0 T-piece 5.0 04/06/19 08:00 98.3 68 20 150/59 (89) 100 04/06/19 07:03 100 T-Piece 5.0 28 04/06/19 07:02 62 20 100 T-Piece 5.0 28 59 20 100 04/06/19 07:00 62 21 141/122 (128) 100 04/06/19 06:00 70 23 145/61 (89) 100 04/06/19 05:00 69 19 114/98 (103) 100 04/06/19 04:00 5.0 28 04/06/19 04:00 T-piece 5.0 T-piece 5.0 04/06/19 04:00 98.4 66 20 130/112 (118) 100 04/06/19 04:00 76 04/06/19 03:06 84 20 100 T-Piece 5.0 28 78 21 100 04/06/19 03:00 70 20 118/57 (77) 100 04/06/19 02:19 104 29 134/97 (109) 100 04/06/19 01:30 100 T-Piece 5.0 28 04/06/19 01:00 73 20 152/69 (96) 100 04/06/19 00:35 81 20 100 T-Piece 5.0 28 78 22 100 1/6/20 00:00 71 04/06/19 00:00 5.0 28 04/06/19 00:00 T-piece 5.0 T-piece 5.0 04/06/19 00:00 98.6 73 23 118/49 (72) 100 04/05/19 23:00 82 20 159/70 (99) 100 04/05/19 22:00 79 22 138/60 (86) 100 04/05/19 21:00 80 20 141/50 (80) 100 04/05/19 20:00 T-piece 5.0 T-piece 5.0 04/05/19 20:00 5.0 28 04/05/19 20:00 76 04/05/19 20:00 98.4 71 21 145/41 (75) 100 04/05/19 19:37 84 21 100 T-Piece 5.0 28 80 20 100 04/05/19 19:37 100 T-Piece 5.0 28 04/05/19 19:00 78 23 153/66 (95) 100 04/05/19 18:00 79 23 133/63 (86) 100 04/05/19 17:00 82 21 166/70 (102) 100 04/05/19 16:00 77 04/05/19 16:00 5.0 28 04/05/19 16:00 98.6 80 21 163/64 (97) 100 04/05/19 16:00 T-piece 5.0 T-piece 5.0 04/05/19 15:55 86 20 100 T-Piece 5.0 28 81 20 100 04/05/19 15:00 80 20 150/58 (88) 100 04/05/19 14:00 82 23 155/59 (91) 100 04/05/19 13:43 100 T-Piece 5.0 28 04/05/19 13:00 83 20 171/73 (105) 100 04/05/19 12:00 99.9 123 21 172/61 (98) 04/05/19 12:00 T-piece 5.0 T-piece 5.0 04/05/19 12:00 5.0 28 04/05/19 12:00 83 04/05/19 11:05 84 20 100 T-Piece 5.0 28 86 20 100 04/05/19 11:00 81 21 140/69 (92) 100 Intake and Output 04/05/19 04/06/19 19:00 07:00 Intake Total 1190 ml 880 ml Output Total 810 ml 1000 ml Balance 380 ml -120 ml Free Water 225 ml 225 ml Tube Feeding 740 ml 180 ml Blood Product 250 ml Other 225 ml 225 ml Output Urine Total 550 ml 1000 ml Gastric Drainage Total 260 ml # Bowel Movements 4 Laboratory Tests 04/06/19 05:00: White Blood Count 8.0#, Red Blood Count 3.98L, Hemoglobin 11.9#L, Hematocrit 35.5#L, Mean Corpuscular Volume 89, Mean Corpuscular Hemoglobin 29.9, Mean Corpuscular Hemoglobin Concent 33.4, Red Cell Distribution Width 15.1H, Platelet Count 221, Mean Platelet Volume 7.0, Neutrophils (%) (Auto) 53.9, Lymphocytes (%) (Auto) 33.5, Monocytes (%) (Auto) 6.6, Eosinophils (%) (Auto) 5.2H, Basophils (%) (Auto) 0.8, Sodium Level 144, Potassium Level 3.7, Chloride Level 107, Carbon Dioxide Level 30, Anion Gap 7, Blood Urea Nitrogen 25H, Creatinine 0.8, Estimat Glomerular Filtration Rate , Glucose Level 85, Calcium Level 8.7, Magnesium Level 1.6L, Total Bilirubin 0.3, Aspartate Amino Transf ( AST/SGOT) 55H, Alanine Aminotransferase (ALT/SGPT) 116H, Alkaline Phosphatase 150H, Pro-B-Type Natriuretic Peptide 204H, Total Protein 8.2, Albumin 2.9L, Globulin 5.3, Albumin/Globulin Ratio 0.5L Height (Feet): 5 Height (Inches): 3.00 Weight (Pounds): 120 General Appearance: no apparent distress EENT: other - trach to O2 Cardiovascular: normal rate Respiratory/Chest: decreased breath sounds Abdomen: distended Objective no change Eric Cortez MD Apr 06, 2019 10:22
--- NOTE | 2019-04-06 11:14 | Infectious Diseases Prog Note ---
"Assessment/Plan Assessment/Plan antibiotics : none A 1. klebsiella | providencia pneumonia s/p rx 2. respiratory failure 3. hypertension 4. CVA 5. dementia 6. sacral decubitus ulcer 7. rectal VRE colonization P 1. observe off antibiotics 2. dc planned Subjective ROS Limited/Unobtainable: Yes Allergies: Coded Allergies: CODEINE (Verified Allergy, Unknown, HIVES, 09/15/09) Objective Vital Signs Last 24 Hour Vital Signs Date Time Temp Pulse Resp B/P (MAP) Pulse Ox O2 Delivery O2 Flow Rate FiO2 04/06/19 11:00 68 20 100 T-Piece 5.0 28 65 20 100 04/06/19 10:00 79 14 152/63 (92) 100 04/06/19 09:00 64 18 157/97 (117) 100 04/06/19 08:00 57 04/06/19 08:00 5.0 28 04/06/19 08:00 T-piece 5.0 T-piece 5.0 04/06/19 08:00 98.3 68 20 150/59 (89) 100 04/06/19 07:03 100 T-Piece 5.0 28 04/06/19 07:02 62 20 100 T-Piece 5.0 28 59 20 100 04/06/19 07:00 62 21 141/122 (128) 100 04/06/19 06:00 70 23 145/61 (89) 100 04/06/19 05:00 69 19 114/98 (103) 100 04/06/19 04:00 5.0 28 04/06/19 04:00 T-piece 5.0 T-piece 5.0 04/06/19 04:00 98.4 66 20 130/112 (118) 100 04/06/19 04:00 76 04/06/19 03:06 84 20 100 T-Piece 5.0 28 78 21 100 04/06/19 03:00 70 20 118/57 (77) 100 04/06/19 02:19 104 29 134/97 (109) 100 04/06/19 01:30 100 T-Piece 5.0 28 04/06/19 01:00 73 20 152/69 (96) 100 04/06/19 00:35 81 20 100 T-Piece 5.0 28 78 22 100 04/06/19 00:00 71 04/06/19 00:00 5.0 28 04/06/19 00:00 T-piece 5.0 T-piece 5.0 04/06/19 00:00 98.6 73 23 118/49 (72) 100 04/05/19 23:00 82 20 159/70 (99) 100 04/05/19 22:00 79 22 138/60 (86) 100 04/05/19 21:00 80 20 141/50 (80) 100 04/05/19 20:00 T-piece 5.0 T-piece 5.0 04/05/19 20:00 5.0 28 04/05/19 20:00 76 04/05/19 20:00 98.4 71 21 145/41 (75) 100 04/05/19 19:37 84 21 100 T-Piece 5.0 28 80 20 100 04/05/19 19:37 100 T-Piece 5.0 28 04/05/19 19:00 78 23 153/66 (95) 100 04/05/19 18:00 79 23 133/63 (86) 100 04/05/19 17:00 82 21 166/70 (102) 100 04/05/19 16:00 77 04/05/19 16:00 5.0 28 04/05/19 16:00 98.6 80 21 163/64 (97) 100 04/05/19 16:00 T-piece 5.0 T-piece 5.0 04/05/19 15:55 86 20 100 T-Piece 5.0 28 81 20 100 04/05/19 15:00 80 20 150/58 (88) 100 04/05/19 14:00 82 23 155/59 (91) 100 04/05/19 13:43 100 T-Piece 5.0 28 04/05/19 13:00 83 20 171/73 (105) 100 04/05/19 12:00 99.9 123 21 172/61 (98) 04/05/19 12:00 T-piece 5.0 T-piece 5.0 04/05/19 12:00 5.0 28 04/05/19 12:00 83 Height (Feet): 5 Height (Inches): 3.00 Weight (Pounds): 120 HEENT: status post trach Respiratory/Chest: lungs clear Cardiovascular: normal rate, regular rhythm, no gallop/murmur Abdomen: soft, non tender, other - GT Extremities: no edema, other - right arm PICC Laboratory Tests Test 04/06/19 05:00 White Blood Count 8.0 K/UL (4.8-10.8) # Red Blood Count 3.98 M/UL (4.20-5.40) L Hemoglobin 11.9 G/DL (12.0-16.0) #L Hematocrit 35.5 % (37.0-47.0) #L Mean Corpuscular Volume 89 FL (80-99) Mean Corpuscular Hemoglobin 29.9 PG (27.0-31.0) Mean Corpuscular Hemoglobin Concent 33.4 G/DL (32.0-36.0) Red Cell Distribution Width 15.1 % (11.6-14.8) H Platelet Count 221 K/UL (150-450) Mean Platelet Volume 7.0 FL (6.5-10.1) Neutrophils (%) (Auto) 53.9 % (45.0-75.0) Lymphocytes (%) (Auto) 33.5 % (20.0-45.0) Monocytes (%) (Auto) 6.6 % (1.0-10.0) Eosinophils (%) (Auto) 5.2 % (0.0-3.0) H Basophils (%) (Auto) 0.8 % (0.0-2.0) Sodium Level 144 MMOL/L (136-145) Potassium Level 3.7 MMOL/L (3.5-5.1) Chloride Level 107 MMOL/L (98-107) Carbon Dioxide Level 30 MMOL/L (21-32) Anion Gap 7 mmol/L (5-15) Blood Urea Nitrogen 25 mg/dL (7-18) H Creatinine 0.8 MG/DL (0.55-1.30) Estimat Glomerular Filtration Rate mL/min (>60) Glucose Level 85 MG/DL (74-106) Calcium Level 8.7 MG/DL (8.5-10.1) Magnesium Level 1.6 MG/DL (1.8-2.4) L Total Bilirubin 0.3 MG/DL (0.2-1.0) Aspartate Amino Transf (AST/SGOT) 55 U/L (15-37) H Alanine Aminotransferase (ALT/SGPT) 116 U/L (12-78) H Alkaline Phosphatase 150 U/L (46-116) H Pro-B-Type Natriuretic Peptide 204 pg/mL (0-125) H Total Protein 8.2 G/DL (6.4-8.2) Albumin 2.9 G/DL (3.4-5.0) L Globulin 5.3 g/dL Albumin/Globulin Ratio 0.5 (1.0-2.7) L Current Medications Medications (Trade) Dose Ordered Sig/Maicol Route PRN Reason Start Time Stop Time Status Last Admin Dose Admin Acetaminophen (Tylenol) 650 mg Q6H PRN GT Mild Pain/Temp > 100.5 03/23/19 15:15 04/22/19 15:14 04/03/19 08:55 Albuterol/ Ipratropium (Albuterol/ Ipratropium) 3 ml Q4HRT HHN 04/04/19 23:00 04/09/19 22:59 04/06/19 11:00 Chlorhexidine Gluconate (Cesilia-Hex 2%) 1 applic DAILY@1999 TOPIC 03/12/19 20:00 04/11/19 19:59 04/05/19 20:13 Heparin Sodium (Porcine) (Heparin 5000 units/ml) 5,000 units EVERY 12 HOURS SUBQ 04/01/19 10:00 05/01/19 09:59 04/05/19 09:28 Hydralazine HCl (Apresoline) 25 mg Q6H PRN ORAL SBP above 150 04/06/19 02:45 05/06/19 02:44 Lansoprazole (Prevacid) 30 mg Q12HR GT 03/29/19 09:00 04/24/19 20:59 04/06/19 08:13 Ondansetron HCl (Zofran) 4 mg Q4H PRN IVP Nausea & Vomiting 03/18/19 18:15 04/17/19 18:14 03/21/19 08:27 Geovany Yang MD Apr 06, 2019 11:14"
--- NOTE | 2019-04-06 12:00 | NUR ---
NURSE NOTES: Pt repositioned and oral care provided. No acute distress noted. Head to assessment performed and charted. VS ntoed stable and charted. J tube and G tube both flushed with 40cc H20 each. ABD US completed and TF resumed.
--- NOTE | 2019-04-06 13:27 | NUR ---
RD ASSESSMENT & RECOMMENDATIONS SEE CARE ACTIVITY FOR COMPLETE ASSESSMENT DAILY ESTIMATED NEEDS: Needs based on Pulmonary, wounds, bedbound/ 61kg adj 25-30 kcals/kg 1503-2878 total kcals 1.25-2 g protein/kg 76-122 g total protein 25-30 mL/kg 8787-2262 total fluid mLs NUTRITION DIAGNOSIS: * Increased kcal/prot needs R/T wound healing as evidenced by BL buttocks and sacral wound photos, refer to WC eval. * Swallowing difficulty R/T respiratory status as evidenced by pt on T-collar, s/p G-J conversion CURRENT TF:HELD-> vital AF 1.2 @ 60ml/hr x 24 hrs ENTERAL NUTRITION RECOMMENDATIONS: VITAL AF 1.2 @ 60ml/hr x 24 hrs to provide 1440ml, 1728kcal, 108g prot, 1167ml free water - Resume previous TF as medically appropriate-> meets 100% est needs - HOB over 30 degrees/ water flush per MD ADDITIONAL RECOMMENDATIONS: 1) RE-calibrate bedscale wt: fluctuating daily wts (120 119 112 124#) 2) Wound healing: Add Cristian 1pkt BID w/ continued good TF tolerace 3) Monitor BGs closely, need for NISS -> now w/ improved BGs 4) Monitor for continued good TF tolerance . . .
--- NOTE | 2019-04-06 13:53 | NUR ---
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 98.3 HR 69 RR 18 B/P 162/58 T-PIECE FIO2 28% AST 55 ALT 116 BNP 204 IS: LASIX IV X 1 HEPARIN SUBC MEROPENEM IV ICU STATUS
--- NOTE | 2019-04-06 14:00 | NUR ---
NURSE NOTES: Pt repositioned, oral care performed, wound care completed, pt in no acute distress at this time. Will continue to monitor.
--- NOTE | 2019-04-06 16:00 | NUR ---
NURSE NOTES: Pt awake in bed, no acute distress noted, opens eyes spontaneously. Oral care performed and pt suctioned. Pt repositioned. Head to tow assessment performed and charted. Will continue to monitor. J and G tube both flushed with 75 cc H20.
--- NOTE | 2019-04-06 16:04 | Surgery Progress Note ---
Surgery Progress Note Subjective Additional Comments anemia transfused prbc monitor bm for blood cont current care plan Objective Last 24 Hour Vital Signs Date Time Temp Pulse Resp B/P (MAP) Pulse Ox O2 Delivery O2 Flow Rate FiO2 04/06/19 15:04 66 20 100 T-Piece 5.0 28 64 20 100 04/06/19 14:00 67 20 152/64 (93) 100 04/06/19 13:38 100 T-Piece 5.0 28 04/06/19 13:00 66 20 150/55 (86) 100 04/06/19 12:00 5.0 28 04/06/19 12:00 66 04/06/19 12:00 98.3 68 20 152/49 (83) 100 04/06/19 11:15 162/58 04/06/19 11:00 64 19 160/56 (90) 100 04/06/19 11:00 68 20 100 T-Piece 5.0 28 65 20 100 04/06/19 10:00 79 14 152/63 (92) 100 04/06/19 09:00 64 18 157/97 (117) 100 04/06/19 08:00 57 04/06/19 08:00 5.0 28 04/06/19 08:00 T-piece 5.0 T-piece 5.0 04/06/19 08:00 98.3 68 20 150/59 (89) 100 04/06/19 07:03 100 T-Piece 5.0 28 04/06/19 07:02 62 20 100 T-Piece 5.0 28 59 20 100 04/06/19 07:00 62 21 141/122 (128) 100 04/06/19 06:00 70 23 145/61 (89) 100 04/06/19 05:00 69 19 114/98 (103) 100 04/06/19 04:00 5.0 28 04/06/19 04:00 T-piece 5.0 T-piece 5.0 04/06/19 04:00 98.4 66 20 130/112 (118) 100 04/06/19 04:00 76 04/06/19 03:06 84 20 100 T-Piece 5.0 28 78 21 100 04/06/19 03:00 70 20 118/57 (77) 100 04/06/19 02:19 104 29 134/97 (109) 100 04/06/19 01:30 100 T-Piece 5.0 28 04/06/19 01:00 73 20 152/69 (96) 100 04/06/19 00:35 81 20 100 T-Piece 5.0 28 78 22 100 04/06/19 00:00 71 04/06/19 00:00 5.0 28 04/06/19 00:00 T-piece 5.0 T-piece 5.0 04/06/19 00:00 98.6 73 23 118/49 (72) 100 04/05/19 23:00 82 20 159/70 (99) 100 04/05/19 22:00 79 22 138/60 (86) 100 04/05/19 21:00 80 20 141/50 (80) 100 04/05/19 20:00 T-piece 5.0 T-piece 5.0 04/05/19 20:00 5.0 28 04/05/19 20:00 76 04/05/19 20:00 98.4 71 21 145/41 (75) 100 04/05/19 19:37 84 21 100 T-Piece 5.0 28 80 20 100 04/05/19 19:37 100 T-Piece 5.0 28 04/05/19 19:00 78 23 153/66 (95) 100 04/05/19 18:00 79 23 133/63 (86) 100 04/05/19 17:00 82 21 166/70 (102) 100 I&O Intake and Output 04/05/19 04/06/19 19:00 07:00 Intake Total 1190 ml 880 ml Output Total 810 ml 1000 ml Balance 380 ml -120 ml Free Water 225 ml 225 ml Tube Feeding 740 ml 180 ml Blood Product 250 ml Other 225 ml 225 ml Output Urine Total 550 ml 1000 ml Gastric Drainage Total 260 ml # Bowel Movements 4 Dressing: dry Wound: clean Drains: other Cardiovascular: RSR Respiratory: decreased breath sounds Abdomen: soft, present bowel sounds, non-distended Extremities: no cyanosis, other Laboratory Tests Test 04/06/19 05:00 White Blood Count 8.0 K/UL (4.8-10.8) # Red Blood Count 3.98 M/UL (4.20-5.40) L Hemoglobin 11.9 G/DL (12.0-16.0) #L Hematocrit 35.5 % (37.0-47.0) #L Mean Corpuscular Volume 89 FL (80-99) Mean Corpuscular Hemoglobin 29.9 PG (27.0-31.0) Mean Corpuscular Hemoglobin Concent 33.4 G/DL (32.0-36.0) Red Cell Distribution Width 15.1 % (11.6-14.8) H Platelet Count 221 K/UL (150-450) Mean Platelet Volume 7.0 FL (6.5-10.1) Neutrophils (%) (Auto) 53.9 % (45.0-75.0) Lymphocytes (%) (Auto) 33.5 % (20.0-45.0) Monocytes (%) (Auto) 6.6 % (1.0-10.0) Eosinophils (%) (Auto) 5.2 % (0.0-3.0) H Basophils (%) (Auto) 0.8 % (0.0-2.0) Sodium Level 144 MMOL/L (136-145) Potassium Level 3.7 MMOL/L (3.5-5.1) Chloride Level 107 MMOL/L (98-107) Carbon Dioxide Level 30 MMOL/L (21-32) Anion Gap 7 mmol/L (5-15) Blood Urea Nitrogen 25 mg/dL (7-18) H Creatinine 0.8 MG/DL (0.55-1.30) Estimat Glomerular Filtration Rate mL/min (>60) Glucose Level 85 MG/DL (74-106) Calcium Level 8.7 MG/DL (8.5-10.1) Magnesium Level 1.6 MG/DL (1.8-2.4) L Total Bilirubin 0.3 MG/DL (0.2-1.0) Aspartate Amino Transf (AST/SGOT) 55 U/L (15-37) H Alanine Aminotransferase (ALT/SGPT) 116 U/L (12-78) H Alkaline Phosphatase 150 U/L (46-116) H Pro-B-Type Natriuretic Peptide 204 pg/mL (0-125) H Total Protein 8.2 G/DL (6.4-8.2) Albumin 2.9 G/DL (3.4-5.0) L Globulin 5.3 g/dL Albumin/Globulin Ratio 0.5 (1.0-2.7) L Plan Problems: (1) Sacral decubitus ulcer Assessment & Plan: This is a 83-year-old female with multiple medical committees that is currently admitted for medical care and management and identified to have multiple wounds requiring care. On admission patient noted to have a resolved sacral decubitus ulcer. Has had prior care and is well-healed at this time. Will ensure it does not open up again. Patient has a right ischial decubitus ulcer that is resolved. Scar intact and well formed. Will monitor to ensure it does not open up again. Patient has a left ischial decubitus ulcer that can be identified to be stage IV with palpable bone that has been resolving as noted by the periwound tissue and scar but open area approximately 1 cm x 1.5 cm few millimeters deep to bone identified. Unsure if this is been to be completely healed prior and has since opened or if has been healing at this level. No foul odor no drainage was unsure local wound care until healed Bilateral heels soft without signs of injury Resolving pressure injury L ischium(L)1.8cm x (W)1cm.Scattered biofilm at base of wound. Edges flat and adherent with surrounding hyperpigmentation. No odor or exudate noted. Sacrum is pale pink with surrounding hyperpigmentation. Hyperpigmentation R ischium with small sheared area centrally.No areas of erythema or exudate noted. Both heels are soft but blanchable. Skin Assessed under collar of trach and no evidence of skin breakdown noted. All wound Tx. are effective and continued as ordered. Pt ahs an APM/Belén mattress overlay and is being repositioned per protocols and per tolerance.No new skin concerns noted. Full thickness pressure injury L Ischium with small amt biofilm (L)1.8cm x (W) 1cm. Surrounding pink hyperpigmentation. No odor or exudate noted. [place] hyperpigmentation from previous wound noted to sacrum. Pt also noted to have Cat 2 Skin Tear dorsal L hand, L 5th metatarsal extending into palm of hand. 80% skin flap in situ.Both heels are dry firm and blanchable. No other skin concerns noted. R ischial wound has resolved. [place] epithelial with surrounding hyperpigmentation. from historical wound. Full thickness pressure injury L ischium. [place] granulation at base of wound. Borders are macerated with Surrounding hyperpigmentation.Small amt non-odorous serous exudate noted.(L)0.7cm x (W)0.8cm. Skin hyperpigmentation from historical wound noted to Sacrum. Small sheared area noted to sacrococcygeal area.(L)0.4cm x (W)0.3cm.Small amt sanguineous exudate noted. Reabsorbed blister with semi-detached dry necrotic cap noted to web space of L thumb and L index fingers extending into palm of L hand. No odor or exudate noted. Skin assessed under tracheal collar and no erythema or evidence of Skin Breakdown noted. NO new skin concerns noted . Good hand hygiene provided to both hands. R hand contracted and fisted. Fingernails trimmed. Wound care provided along with Primary nurse. Wound Tx continued as ordered. New order obtained from to apply Betadine to wound L hand Daily. Tx done as ordered. L hand wrapped with kerlix weaving kerlix between fingers to separate fingers. Moisture Barrier applied to sacrum ,R ischium. Each site covered with Optifoam drsg. Both lower ext washed and moisturized. Cavilon Skin Barrier applied to both heels.Each heel covered with Optifoam drsgs. Pt positioned with pillows and both heels off-loaded with pillow. Tx.Plan: Apply Betadine to wound L hand. Cover with Gauze and wrap with Kerlix Daily and prn. Cleanse L ischial wound with Saline. Apply Therahoney. Apply Moisture Barrier periwound. Cover with Optifoam drsgevery 3 days and prn. Apply Moisture Barrier Paste to R ischium and Sacrum. Cover each area with Optifoam drsg. Change every 3 days and prn. Apply Cavilon Skin Barrier to both heels. Cover each heel with Optifoam drsg. Change every 7 days and prn. APM/BELÉN Mattress overlay. Reposition at least every 2hours or as tolerated. Off-load heels with pillow. Cleanse Blister Dorsal and palm of L hand with saline. Versatel One Silicone Contact Layer(Applied). Apply Silvasorb Gel. Wrap with Kerlix Gauze.Change every 7 days and prn. Apply Moisture Barrier to sacrum. Cover with Optifoam drsg. Change every 3 days and prn. Cleanse L ischial wound with saline. Apply Therahoney. Apply Moisture Barrier Paste periwound. Cover with Optifoam drsg. Change every 3 days and prn. Apply Cavilon Skin Barrier to both heels. Cover each heel with Optifoam drsg. Change every 7 days and prn. APM/BELÉN Mattress overlay. Reposition at least every 2hours or as tolerated. Off-load heels with pillow. Nutritional optimization We will monitor follow with recommendations cont with above upon d/c (2) Sepsis Assessment & Plan: IV abx as per ID trend labs improving wounds unlikely etiology likely respiratory imaging noted and okay abnormal lft's stable PICC on Abx in ICU for desaturation CXR with consolidation cont with frequent suctioning d/c planning g j via GI daughter wants close attention to wounds and management to ensure healing Evidence of left lower lobe pneumonia, also previously demonstrated Gastrostomy in good position Mild diastasis of the rectus abdominis musculature again demonstrated Retrosacral decubitus changes, better depicted on prior exam which included the pelvis Small hiatal hernia with evidence of trace gastroesophageal reflux Discussed with GI. Recommend GJ family still pending decision transfuse prbc prn monitor h/h monitor bm (3) Feeding by G-tube Assessment & Plan: DAILY ESTIMATED NEEDS: Needs based on Pulmonary, wounds, bedbound/ 61kg adj 25-30 kcals/kg 1740-5587 total kcals 1.25-2 g protein/kg 76-122 g total protein 25-30 mL/kg 3996-3637 total fluid mLs NUTRITION DIAGNOSIS: * Increased kcal/prot needs R/T wound healing as evidenced by BL buttocks and sacral wound photos, refer to eval. * Swallowing difficulty R/T respiratory status as evidenced by pt on T-collar, s/p G-J conversion CURRENT TF:Glucerna 1.5 @ 50ml/hr x 24 hrs ENTERAL NUTRITION RECOMMENDATIONS: Glucerna 1.5 @ 50ml/hr x 24 hrs to provide 1200ml, 1800 kcal, 99g pro, 911ml free H2O - Maintain at current rate as tolerated to meet 100% est needs - HOB over 30 degrees - INCREASE water flush of 170ml q 6 hrs ADDITIONAL RECOMMENDATIONS: 1) RE-calibrate bedscale wt: fluctuating daily wts (108#-136# last 6 days) 2) Wound healing: Add Cristian 1pkt BID w/ continued good TF tolerance. 3) Increase water flushes, monitor for signs of water deficits 4) Monitor BGs closely, need for NISS -> now w/ improved BGs 5) Monitor for continued good TF tolerance 6) Monitor K : elev K on 03/25, s/p Kdur BID, now dc'ed. (4) Chronic vegetative state Assessment & Plan: incontinence of urine and stool. can soil dressings. nurses doing great job with monitoring and changing prn (5) Leukocytosis Walter Madera Apr 06, 2019 16:04
--- NOTE | 2019-04-06 17:42 | General Progress Note ---
Assessment/Plan Problem List: (1) Seizure ICD Codes: R56.9 - Unspecified convulsions SNOMED: 25865739 (2) Anemia ICD Codes: D64.9 - Anemia, unspecified SNOMED: 432399782 Qualifiers: Qualified Codes: D64.9 - Anemia, unspecified (3) Sepsis ICD Codes: A41.9 - Sepsis, unspecified organism SNOMED: 35442264, 220587697 Qualifiers: Qualified Codes: A41.9 - Sepsis, unspecified organism (4) Respiratory failure with hypoxia ICD Codes: J96.91 - Respiratory failure, unspecified with hypoxia SNOMED: 53350730650931189 Qualifiers: Qualified Codes: J96.21 - Acute and chronic respiratory failure with hypoxia (5) HCAP (healthcare-associated pneumonia) ICD Codes: J18.9 - Pneumonia, unspecified organism SNOMED: 960674990, 845310035 (6) Sacral decubitus ulcer ICD Codes: L89.159 - Pressure ulcer of sacral region, unspecified stage SNOMED: 855248398 (7) HTN (hypertension) ICD Codes: I10 - Essential (primary) hypertension SNOMED: 77653898 (8) Chronic vegetative state ICD Codes: R40.3 - Persistent vegetative state SNOMED: 41963828 (9) Chronic respiratory failure ICD Codes: J96.10 - Chronic respiratory failure, unspecified whether with hypoxia or hypercapnia SNOMED: 56639584 (10) Limited mobility ICD Codes: Z74.09 - Other reduced mobility SNOMED: 6881641 Status: stable, progressing Assessment/Plan: vent as needed resp rx suctioning j tube feeds g port to [facility] skin care sz rx monitor lfts dc planning Subjective ROS Limited/Unobtainable: No Constitutional: Reports: malaise, weakness HEENT: Reports: no symptoms Cardiovascular: Reports: no symptoms Respiratory: Reports: cough, shortness of breath Gastrointestinal/Abdominal: Reports: difficulty swallowing Genitourinary: Reports: no symptoms Neurologic/Psychiatric: Reports: pre-existing deficit, seizure Endocrine: Reports: no symptoms Hematologic/Lymphatic: Reports: anemia Allergies: Coded Allergies: CODEINE (Verified Allergy, Unknown, HIVES, 09/15/09) All Systems: reviewed and negative except above Subjective no events. decresed h/h noted. no reports of bleeding. tolerating feeds, no vomiting. lfts trending down Objective Last 24 Hour Vital Signs Date Time Temp Pulse Resp B/P (MAP) Pulse Ox O2 Delivery O2 Flow Rate FiO2 04/06/19 17:00 71 19 142/58 (86) 98 04/06/19 16:00 98.2 64 20 112/56 (74) 93 04/06/19 16:00 68 04/06/19 16:00 T-piece 5.0 T-piece 5.0 04/06/19 16:00 5.0 28 04/06/19 15:04 66 20 100 T-Piece 5.0 28 64 20 100 04/06/19 15:00 68 17 164/64 (97) 96 04/06/19 14:00 67 20 152/64 (93) 100 04/06/19 13:38 100 T-Piece 5.0 28 04/06/19 13:00 66 20 150/55 (86) 100 04/06/19 12:00 5.0 28 04/06/19 12:00 T-piece 5.0 T-piece 5.0 04/06/19 12:00 66 04/06/19 12:00 98.3 68 20 152/49 (83) 100 04/06/19 11:15 162/58 04/06/19 11:00 64 19 160/56 (90) 100 04/06/19 11:00 68 20 100 T-Piece 5.0 28 65 20 100 04/06/19 10:00 79 14 152/63 (92) 100 04/06/19 09:00 64 18 157/97 (117) 100 04/06/19 08:00 57 04/06/19 08:00 5.0 28 04/06/19 08:00 T-piece 5.0 T-piece 5.0 04/06/19 08:00 98.3 68 20 150/59 (89) 100 04/06/19 07:03 100 T-Piece 5.0 28 04/06/19 07:02 62 20 100 T-Piece 5.0 28 59 20 100 04/06/19 07:00 62 21 141/122 (128) 100 04/06/19 06:00 70 23 145/61 (89) 100 04/06/19 05:00 69 19 114/98 (103) 100 04/06/19 04:00 5.0 28 04/06/19 04:00 T-piece 5.0 T-piece 5.0 04/06/19 04:00 98.4 66 20 130/112 (118) 100 04/06/19 04:00 76 04/06/19 03:06 84 20 100 T-Piece 5.0 28 78 21 100 04/06/19 03:00 70 20 118/57 (77) 100 04/06/19 02:19 104 29 134/97 (109) 100 04/06/19 01:30 100 T-Piece 5.0 28 04/06/19 01:00 73 20 152/69 (96) 100 04/06/19 00:35 81 20 100 T-Piece 5.0 28 78 22 100 04/06/19 00:00 71 04/06/19 00:00 5.0 28 04/06/19 00:00 T-piece 5.0 T-piece 5.0 04/06/19 00:00 98.6 73 23 118/49 (72) 100 04/05/19 23:00 82 20 159/70 (99) 100 04/05/19 22:00 79 22 138/60 (86) 100 04/05/19 21:00 80 20 141/50 (80) 100 04/05/19 20:00 T-piece 5.0 T-piece 5.0 04/05/19 20:00 5.0 28 04/05/19 20:00 76 04/05/19 20:00 98.4 71 21 145/41 (75) 100 04/05/19 19:37 84 21 100 T-Piece 5.0 28 80 20 100 04/05/19 19:37 100 T-Piece 5.0 28 04/05/19 19:00 78 23 153/66 (95) 100 04/05/19 18:00 79 23 133/63 (86) 100 Intake and Output 04/05/19 04/06/19 19:00 07:00 Intake Total 1190 ml 880 ml Output Total 810 ml 1000 ml Balance 380 ml -120 ml Free Water 225 ml 225 ml Tube Feeding 740 ml 180 ml Blood Product 250 ml Other 225 ml 225 ml Output Urine Total 550 ml 1000 ml Gastric Drainage Total 260 ml # Bowel Movements 4 Laboratory Tests 04/06/19 05:00: White Blood Count 8.0#, Red Blood Count 3.98L, Hemoglobin 11.9#L, Hematocrit 35.5#L, Mean Corpuscular Volume 89, Mean Corpuscular Hemoglobin 29.9, Mean Corpuscular Hemoglobin Concent 33.4, Red Cell Distribution Width 15.1H, Platelet Count 221, Mean Platelet Volume 7.0, Neutrophils (%) (Auto) 53.9, Lymphocytes (%) (Auto) 33.5, Monocytes (%) (Auto) 6.6, Eosinophils (%) (Auto) 5.2H, Basophils (%) (Auto) 0.8, Sodium Level 144, Potassium Level 3.7, Chloride Level 107, Carbon Dioxide Level 30, Anion Gap 7, Blood Urea Nitrogen 25H, Creatinine 0.8, Estimat Glomerular Filtration Rate , Glucose Level 85, Calcium Level 8.7, Magnesium Level 1.6L, Total Bilirubin 0.3, Aspartate Amino Transf ( AST/SGOT) 55H, Alanine Aminotransferase (ALT/SGPT) 116H, Alkaline Phosphatase 150H, Pro-B-Type Natriuretic Peptide 204H, Total Protein 8.2, Albumin 2.9L, Globulin 5.3, Albumin/Globulin Ratio 0.5L Height (Feet): 5 Height (Inches): 3.00 Weight (Pounds): 120 Objective General Appearance: WD/WN, confused. on trach collar Neck: supple Cardiovascular: normal rate, regular rhythm Respiratory/Chest: chest wall non-tender, rhonchi - bilaterally(minimal) Abdomen: normal bowel sounds, non tender, soft, no organomegaly Edema: no edema noted Arm (L), no edema noted Arm (R), no edema noted Leg (L), no edema noted Leg (R), no edema noted Pedal (L), no edema noted Pedal (R), no edema noted Generalized Neurologic: disoriented, unresponsive, aphasia Irvin Beltrán MD Apr 06, 2019 17:42
--- NOTE | 2019-04-06 18:05 | Diagnostic Imaging Report ---
Indication: Abnormal liver function tests, abnormal renal function tests Technique: Mary-scale and duplex images of the upper abdomen were obtained Comparison: 02/12/2019 Findings: Exam is somewhat limited, patient difficult to scan due to bilateral upper extremity contractures and presence of gastrostomy Gallbladder demonstrates a hyperechoic focus in the gallbladder wall versus wall adherent stone. No gallbladder wall thickening or pericholecystic fluid. Sonographic Garcia's sign cannot be assessed. Common bile duct measures 5 mm in diameter. No intrahepatic biliary ductal dilatation. Liver demonstrates normal echogenicity, no focal abnormality. Portal vein and hepatic veins are patent. Pancreas is unremarkable. Spleen is unremarkable. Left kidney measures 10.9 cm in length. Right kidney measures 8.8 cm length. Both kidneys demonstrate increased echogenicity. Renal cysts are seen bilaterally. There is no hydronephrosis. . Abdominal aorta is partially obscured by bowel gas, visualized portions are non-aneurysmal . Impression: Echogenic focus in the gallbladder wall, possibly artifactual given absence of corresponding findings on prior studies, but could indicate a wall calcification versus wall adherent calculus Negative for dilated bile ducts Echogenic bilateral kidneys, consistent with medical renal disease, also previously reported Negative for hydronephrosis Limited scan as described Note inability to visualize portions of the distal abdominal aorta
--- NOTE | 2019-04-06 18:53 | NUR ---
HAND-OFF: Report given to JEANNINE Tillman. Pt remains in unchanged condition with no signs of acute distress noted.
--- NOTE | 2019-04-06 18:55 | NUR ---
NURSE NOTES: Received patient from Sandy [facility]. Patient is awake, opens eyes spontaneously. Receiving oxygen via T-piece: Shiley 6 Fio2 25% at 5L/min, patient O2 saturation at 99%. Purewick is intact and draining. IV site is Right upper arm PICC, patent and intact. G-tube/J-tube is intact and receiving Vital AF at 55cc/hr, goal is 65cc/hr. Bed is locked, placed in lowest position, side rails up x3, bed alarm on, call light within reach, head of bed elevated. Will continue to monitor.
--- NOTE | 2019-04-06 19:42 | NUR ---
RESPIRATORY NOTE: Received pt on 28% Cool Aerosol via T-piece. Pt is trach-dependent w/ a cuffed, Shiley 6XLT tube, cuff is currently deflated. Pt in awake/flat effect, responds to stimuli. B/S flory. rhonchi, sxn small to moderate amounts of thin/frothy, white secretions. Vent on standby at bedside, plugged into red outlet. [place]ubag at bedside. Pt resting comfortably, in no apparent distress at this time. Will continue to monitor pt.
[2019-04-06] MEDS: Dyna-Hex 2% Top Sol 2oz TOPIC SCH (20:06)
--- NOTE | 2019-04-06 20:30 | General Progress Note ---
Assessment/Plan Status: stable, progressing Assessment/Plan: Assessment - N/V - resolved with G --> J conversion - constipation - resolved - Elevated Alk phos / LFT - CT negative - abd U/S negative - check hepatitis serologies - negative - possibly MURRAY / Fatty liver - Anemia with OB (-) stools (? falsely low CBC yesterday) - Resp failure, s/p Trach - dysphagia, s/p PEG --> GJ tube - OBS, vegetative obtunded unresponsive state, bedbound with contracted extremities, - h/o minor GJ tube site irritation - Early J port occlusion, possibly due to thick diabetic TF formula - Elevated glucose - poor Prognosis Recommendations - laxative PRN - antibiotic ointment to GJT site PRN - aspiration precautions - elevate HOB - Vital AF 1.2 - check q 6 hour FS - transfuse to keep Hg > 7 - J tube feeds - G tube drain Subjective Allergies: Coded Allergies: CODEINE (Verified Allergy, Unknown, HIVES, 09/15/09) Subjective above noted tolerating TF via J port Objective Last 24 Hour Vital Signs Date Time Temp Pulse Resp B/P (MAP) Pulse Ox O2 Delivery O2 Flow Rate FiO2 04/06/19 19:47 78 23 100 T-Piece 5.0 28 04/06/19 19:37 71 20 99 T-Piece 5.0 28 04/06/19 19:37 99 T-Piece 5.0 28 04/06/19 19:00 64 19 120/48 (72) 100 04/06/19 18:00 63 21 111/57 (75) 98 04/06/19 17:00 71 19 142/58 (86) 98 04/06/19 16:00 98.2 64 20 112/56 (74) 93 04/06/19 16:00 68 04/06/19 16:00 T-piece 5.0 T-piece 5.0 04/06/19 16:00 5.0 28 04/06/19 15:04 66 20 100 T-Piece 5.0 28 64 20 100 04/06/19 15:00 68 17 164/64 (97) 96 04/06/19 14:00 67 20 152/64 (93) 100 04/06/19 13:38 100 T-Piece 5.0 28 04/06/19 13:00 66 20 150/55 (86) 100 04/06/19 12:00 5.0 28 04/06/19 12:00 T-piece 5.0 T-piece 5.0 04/06/19 12:00 66 04/06/19 12:00 98.3 68 20 152/49 (83) 100 04/06/19 11:15 162/58 04/06/19 11:00 64 19 160/56 (90) 100 04/06/19 11:00 68 20 100 T-Piece 5.0 28 65 20 100 04/06/19 10:00 79 14 152/63 (92) 100 04/06/19 09:00 64 18 157/97 (117) 100 04/06/19 08:00 57 04/06/19 08:00 5.0 28 04/06/19 08:00 T-piece 5.0 T-piece 5.0 04/06/19 08:00 98.3 68 20 150/59 (89) 100 04/06/19 07:03 100 T-Piece 5.0 28 04/06/19 07:02 62 20 100 T-Piece 5.0 28 59 20 100 04/06/19 07:00 62 21 141/122 (128) 100 04/06/19 06:00 70 23 145/61 (89) 100 04/06/19 05:00 69 19 114/98 (103) 100 04/06/19 04:00 5.0 28 04/06/19 04:00 T-piece 5.0 T-piece 5.0 04/06/19 04:00 98.4 66 20 130/112 (118) 100 04/06/19 04:00 76 04/06/19 03:06 84 20 100 T-Piece 5.0 28 78 21 100 04/06/19 03:00 70 20 118/57 (77) 100 04/06/19 02:19 104 29 134/97 (109) 100 04/06/19 01:30 100 T-Piece 5.0 28 04/06/19 01:00 73 20 152/69 (96) 100 04/06/19 00:35 81 20 100 T-Piece 5.0 28 78 22 100 04/06/19 00:00 71 04/06/19 00:00 5.0 28 04/06/19 00:00 T-piece 5.0 T-piece 5.0 04/06/19 00:00 98.6 73 23 118/49 (72) 100 04/05/19 23:00 82 20 159/70 (99) 100 04/05/19 22:00 79 22 138/60 (86) 100 04/05/19 21:00 80 20 141/50 (80) 100 Intake and Output 04/05/19 04/06/19 19:00 07:00 Intake Total 1190 ml 880 ml Output Total 810 ml 1000 ml Balance 380 ml -120 ml Free Water 225 ml 225 ml Tube Feeding 740 ml 180 ml Blood Product 250 ml Other 225 ml 225 ml Output Urine Total 550 ml 1000 ml Gastric Drainage Total 260 ml # Bowel Movements 4 Laboratory Tests 04/06/19 05:00: White Blood Count 8.0#, Red Blood Count 3.98L, Hemoglobin 11.9#L, Hematocrit 35.5#L, Mean Corpuscular Volume 89, Mean Corpuscular Hemoglobin 29.9, Mean Corpuscular Hemoglobin Concent 33.4, Red Cell Distribution Width 15.1H, Platelet Count 221, Mean Platelet Volume 7.0, Neutrophils (%) (Auto) 53.9, Lymphocytes (%) (Auto) 33.5, Monocytes (%) (Auto) 6.6, Eosinophils (%) (Auto) 5.2H, Basophils (%) (Auto) 0.8, Sodium Level 144, Potassium Level 3.7, Chloride Level 107, Carbon Dioxide Level 30, Anion Gap 7, Blood Urea Nitrogen 25H, Creatinine 0.8, Estimat Glomerular Filtration Rate , Glucose Level 85, Calcium Level 8.7, Magnesium Level 1.6L, Total Bilirubin 0.3, Aspartate Amino Transf ( AST/SGOT) 55H, Alanine Aminotransferase (ALT/SGPT) 116H, Alkaline Phosphatase 150H, Pro-B-Type Natriuretic Peptide 204H, Total Protein 8.2, Albumin 2.9L, Globulin 5.3, Albumin/Globulin Ratio 0.5L Height (Feet): 5 Height (Inches): 3.00 Weight (Pounds): 120 Objective Debilitated AA woman non-verbal, obtunded NCAT (+) trach coarse BS RR obese abd, (+) GJT no edema (+) contractured extremities Celio Vaughan MD Apr 06, 2019 20:30
--- NOTE | 2019-04-06 20:52 | NUR ---
NURSE NOTES: Did oral and tracheal suction for patient clear frothy sputum was suctioned, approximately 10cc. Patient tolerated well, O2 Saturation at 100%. Will continue to monitor.
--- NOTE | 2019-04-06 21:10 | NUR ---
NURSE NOTES: Checked feeding residual via J-tube. Approximately 5cc of residual noted, patient is tolerating feeding well, increased feeding rate to 60cc/hr. Will continue to monitor.
--- NOTE | 2019-04-06 21:45 | Progress Note ---
DATE: 04/06/2019 CARDIOLOGY PROGRESS NOTE NOTE: INCOMPLETE DICTATION Bg Hagen M.D. DR: ALEXANDER JOB#: [id number] CC:
--- NOTE | 2019-04-06 21:45 | Progress Note ---
DATE: 04/06/2019 CARDIOLOGY PROGRESS NOTE SUBJECTIVE: The patient remains on G-tube. No respiratory distress. Baseline comatose state. Monitored rhythm, sinus. Status post transfusion. No new bleeding. OBJECTIVE: VITAL SIGNS: Blood pressure 142/58, pulse 71, respirations 19, afebrile. LUNGS: Bilateral breath sounds. CARDIAC: Regular rhythm, rate. Normal S1, S2. ABDOMEN: Soft. GJ tube intact. EXTREMITIES: No edema. LABORATORY AND DIAGNOSTIC DATA: Abdominal ultrasound revealed no acute process other than possible calculus. Labs notable for white count 8, hemoglobin 12. Potassium 3.7, magnesium 1.6. AST, ALT slightly improved. Albumin 2.9. Pro-natriuretic peptide 204. IMPRESSION: 1. Respiratory failure, status post GJ tube placement. 2. Transaminitis, improved, etiology unclear. 3. Hypomagnesemia. 4. Moderate protein-calorie malnutrition. 5. Chronic diastolic congestive heart failure. 6. Hypertensive heart disease. PLAN: 1. Nutrition by feeding tube. 2. Monitor liver function studies. 3. No diuresis at this time. 4. Magnesium replacement. 5. Monitor electrolytes. 6. Respiratory hygiene. Bg Hagen M.D. DR: KAREN JOB#: [id number] CC:
--- NOTE | 2019-04-06 22:09 | NUR ---
NURSE NOTES: Checked feeding residual via J-tube. less than 3cc of residual noted, patient is tolerating feeding well, feeding rate currently at 60cc/hr. Will continue to monitor.
--- NOTE | 2019-04-06 23:00 | NUR ---
NURSE NOTES: Report received from Lincoln Valdes RN.Pt asleep on bed ,noted no resp distress,on T-Piece , 25% Fio2,no signs of pain or discomfort ,SR on the monitor,tube feeding JT to Vital AF 1.2 at 60 ml/hr no residual noted,with GT draining to gravity used only for medications,Pure wick in placed draining yellow urine,JOSY Picc line intact,SR up x2 HOB elevated,bed lock in lowest position will continue with plans of care.
--- NOTE | 2019-04-06 23:33 | NUR ---
HAND-OFF: Report given to Neeta PAEZ.
[2019-04-07] VITALS (24 sets, daily range): BP systolic 91–155; BP diastolic 42–70
--- NOTE | 2019-04-07 01:00 | NUR ---
NURSE NOTES: Oral care done,tracheal secretions suctioned freq and PRN to small amount of thin whitish secretions.
[2019-04-07] MEDS: Albuterol/Ipratropium 3ml neb HHN SCH ×6 (03:06→23:09)
--- NOTE | 2019-04-07 04:00 | NUR ---
NURSE NOTES: Pt woke up opens eyes but not tracking,stable ,noted no resp distress, but sounds congested,tracheal secretions suctioned frequently.
--- NOTE | 2019-04-07 04:00 | NUR ---
NURSE NOTES: J- tube feeding Vital AF 1.2 increased to 65 ml/hr,no residual feeding tolerated
[2019-04-07 05:37] LABS: BASOPHILS % (AUTO) 0.9 % (0.0-2.0); EOSINOPHILS % (AUTO) 5.8 % (0.0-3.0); HEMATOCRIT 36.1 % (37.0-47.0); HEMOGLOBIN 11.8 G/DL (12.0-16.0); LYMPHOCYTES % (AUTO) 32.6 % (20.0-45.0); MEAN CORPUSCULAR VOLUME 90 FL (80-99); MONOCYTES % (AUTO) 6.4 % (1.0-10.0); NEUTROPHILS % (AUTO) 54.3 % (45.0-75.0); PLATELET COUNT 216 K/UL (150-450); RED BLOOD COUNT 4.03 M/UL (4.20-5.40); RED CELL DISTRIBUTION WIDTH 15.1 % (11.6-14.8); WHITE BLOOD COUNT 8.4 K/UL (4.8-10.8)
--- NOTE | 2019-04-07 06:00 | NUR ---
NURSE NOTES: Pt has a purewick but still incontinent of urine,bed bath given,kept dry and clean.
[2019-04-07 06:53] LABS: ALANINE AMINOTRANSFERASE 88 U/L (12-78); ALBUMIN 2.9 G/DL (3.4-5.0); ALBUMIN/GLOBULIN RATIO 0.6 (1.0-2.7); ALKALINE PHOSPHATASE 144 U/L (46-116); ANION GAP 6 mmol/L (5-15); ASPARTATE AMINO TRANSFERASE 33 U/L (15-37); BILIRUBIN,TOTAL 0.2 MG/DL (0.2-1.0); BLOOD UREA NITROGEN 33 mg/dL (7-18); CALCIUM 8.6 MG/DL (8.5-10.1); CARBON DIOXIDE 29 MMOL/L (21-32); CHLORIDE 104 MMOL/L (98-107); CREATININE 0.9 MG/DL (0.55-1.30); POTASSIUM 3.5 MMOL/L (3.5-5.1); SODIUM 139 MMOL/L (136-145)
--- NOTE | 2019-04-07 07:00 | NUR ---
HAND-OFF: Report given to Joseph RAMIREZ.
--- NOTE | 2019-04-07 07:10 | NUR ---
NURSE NOTES: Received report from JEANNINE Santacruz. Patient awake and open her eyes without tracking. Noted with Shiley 6 with FiO2 28% and O2 Sat 100% on the monitor. JG tube intact and tube feeding Vital AF 1.2 65ml/hr via J-tube. G tube connected to drain bag by gravity. Purewick intact and connected to suction canister. Right upper arm PICC intact and clean with TKO. Kept dry, clean, comfortable and HOB>30. Will continue plan of care.
--- NOTE | 2019-04-07 07:14 | NUR ---
NURSE NOTES: Seen by Dr. Beltrán and assessed patient. No new order at this time.
--- NOTE | 2019-04-07 07:22 | NUR ---
NURSE NOTES: Seen by Dr. Vaughna and assessed patient. New order read back and carried out. Will continue plan of care.
--- NOTE | 2019-04-07 07:37 | General Progress Note ---
Assessment/Plan Problem List: (1) Seizure ICD Codes: R56.9 - Unspecified convulsions SNOMED: 23767191 (2) Anemia ICD Codes: D64.9 - Anemia, unspecified SNOMED: 451548922 Qualifiers: Qualified Codes: D64.9 - Anemia, unspecified (3) Sepsis ICD Codes: A41.9 - Sepsis, unspecified organism SNOMED: 80169624, 130893763 Qualifiers: Qualified Codes: A41.9 - Sepsis, unspecified organism (4) Respiratory failure with hypoxia ICD Codes: J96.91 - Respiratory failure, unspecified with hypoxia SNOMED: 36489194502447795 Qualifiers: Qualified Codes: J96.21 - Acute and chronic respiratory failure with hypoxia (5) HCAP (healthcare-associated pneumonia) ICD Codes: J18.9 - Pneumonia, unspecified organism SNOMED: 911319780, 625829996 (6) Sacral decubitus ulcer ICD Codes: L89.159 - Pressure ulcer of sacral region, unspecified stage SNOMED: 156288495 (7) HTN (hypertension) ICD Codes: I10 - Essential (primary) hypertension SNOMED: 93113157 (8) Chronic vegetative state ICD Codes: R40.3 - Persistent vegetative state SNOMED: 02676754 (9) Chronic respiratory failure ICD Codes: J96.10 - Chronic respiratory failure, unspecified whether with hypoxia or hypercapnia SNOMED: 18058428 (10) Limited mobility ICD Codes: Z74.09 - Other reduced mobility SNOMED: 7302527 Status: stable, progressing Assessment/Plan: vent as needed resp rx suctioning j tube feeds g port to [facility] skin care sz rx monitor lfts dc planning Subjective ROS Limited/Unobtainable: No Constitutional: Reports: malaise, weakness HEENT: Reports: no symptoms Cardiovascular: Reports: no symptoms Respiratory: Reports: cough, shortness of breath, sputum Gastrointestinal/Abdominal: Reports: no symptoms Genitourinary: Reports: no symptoms Neurologic/Psychiatric: Reports: pre-existing deficit Allergies: Coded Allergies: CODEINE (Verified Allergy, Unknown, HIVES, 09/15/09) All Systems: reviewed and negative except above Subjective no events. decresed h/h noted. no reports of bleeding. tolerating feeds, no vomiting. lfts trending down Objective Last 24 Hour Vital Signs Date Time Temp Pulse Resp B/P (MAP) Pulse Ox O2 Delivery O2 Flow Rate FiO2 04/07/19 07:13 100 T-Piece 5.0 28 04/07/19 07:10 69 22 100 T-Piece 5.0 28 65 20 100 04/07/19 06:00 68 19 121/57 (78) 04/07/19 05:00 71 20 96/53 (67) 99 04/07/19 04:00 5.0 28 04/07/19 04:00 96.5 75 20 103/47 (65) 100 04/07/19 04:00 72 04/07/19 04:00 T-piece 5.0 T-piece 5.0 04/07/19 03:16 78 23 100 T-Piece 5.0 28 04/07/19 03:06 75 21 100 T-Piece 5.0 28 04/07/19 03:00 84 23 126/55 (78) 100 04/07/19 02:00 73 20 117/56 (76) 100 04/07/19 01:11 100 T-Piece 5.0 28 04/07/19 01:00 73 22 112/62 (79) 100 04/07/19 00:00 96.6 69 20 95/44 (61) 100 04/07/19 00:00 5.0 28 04/07/19 00:00 71 04/07/19 00:00 T-piece 5.0 T-piece 5.0 04/06/19 23:28 80 21 100 T-Piece 5.0 28 04/06/19 23:18 73 21 99 T-Piece 5.0 28 04/06/19 23:00 77 21 95/47 (63) 98 04/06/19 22:00 65 19 133/58 (83) 99 04/06/19 21:00 72 20 152/72 (98) 100 04/06/19 20:00 T-piece 5.0 T-piece 5.0 04/06/19 20:00 98.3 78 24 140/56 (84) 100 04/06/19 20:00 5.0 28 04/06/19 19:47 78 23 100 T-Piece 5.0 28 04/06/19 19:47 74 04/06/19 19:37 71 20 99 T-Piece 5.0 28 1/6/20 19:37 99 T-Piece 5.0 28 04/06/19 19:00 64 19 120/48 (72) 100 04/06/19 18:00 63 21 111/57 (75) 98 04/06/19 17:00 71 19 142/58 (86) 98 04/06/19 16:00 98.2 64 20 112/56 (74) 93 04/06/19 16:00 68 04/06/19 16:00 T-piece 5.0 T-piece 5.0 04/06/19 16:00 5.0 28 04/06/19 15:04 66 20 100 T-Piece 5.0 28 64 20 100 04/06/19 15:00 68 17 164/64 (97) 96 04/06/19 14:00 67 20 152/64 (93) 100 04/06/19 13:38 100 T-Piece 5.0 28 04/06/19 13:00 66 20 150/55 (86) 100 04/06/19 12:00 5.0 28 04/06/19 12:00 T-piece 5.0 T-piece 5.0 04/06/19 12:00 66 04/06/19 12:00 98.3 68 20 152/49 (83) 100 04/06/19 11:15 162/58 04/06/19 11:00 64 19 160/56 (90) 100 04/06/19 11:00 68 20 100 T-Piece 5.0 28 65 20 100 04/06/19 10:00 79 14 152/63 (92) 100 04/06/19 09:00 64 18 157/97 (117) 100 04/06/19 08:00 57 04/06/19 08:00 5.0 28 04/06/19 08:00 T-piece 5.0 T-piece 5.0 04/06/19 08:00 98.3 68 20 150/59 (89) 100 Intake and Output 04/06/19 04/07/19 19:00 07:00 Intake Total 890 ml 875 ml Output Total 950 ml 1750 ml Balance -60 ml -875 ml Free Water 150 ml 75 ml IV Total 200 ml Tube Feeding 390 ml 725 ml Other 150 ml 75 ml Output Urine Total 400 ml 150 ml Gastric Drainage Total 150 ml Other 400 ml 1600 ml # Voids 3 Laboratory Tests 04/07/19 03:30: White Blood Count 8.4, Red Blood Count 4.03L, Hemoglobin 11.8L, Hematocrit 36.1L , Mean Corpuscular Volume 90, Mean Corpuscular Hemoglobin 29.3, Mean Corpuscular Hemoglobin Concent 32.8, Red Cell Distribution Width 15.1H, Platelet Count 216, Mean Platelet Volume 6.0L, Neutrophils (%) (Auto) 54.3, Lymphocytes (%) (Auto) 32.6, Monocytes (%) (Auto) 6.4, Eosinophils (%) (Auto) 5.8H, Basophils (%) (Auto) 0.9, Sodium Level 139, Potassium Level 3.5, Chloride Level 104, Carbon Dioxide Level 29, Anion Gap 6, Blood Urea Nitrogen 33H, Creatinine 0.9, Estimat Glomerular Filtration Rate , Glucose Level 115H, Calcium Level 8.6, Total Bilirubin 0.2, Aspartate Amino Transf (AST/SGOT) 33, Alanine Aminotransferase (ALT/SGPT) 88H, Alkaline Phosphatase 144H, Total Protein 8.1, Albumin 2.9L, Globulin 5.2, Albumin/Globulin Ratio 0.6L Height (Feet): 5 Height (Inches): 3.00 Weight (Pounds): 130 Objective General Appearance: WD/WN, confused. on trach collar Neck: supple Cardiovascular: normal rate, regular rhythm Respiratory/Chest: chest wall non-tender, rhonchi - bilaterally(minimal) Abdomen: normal bowel sounds, non tender, soft, no organomegaly Edema: no edema noted Arm (L), no edema noted Arm (R), no edema noted Leg (L), no edema noted Leg (R), no edema noted Pedal (L), no edema noted Pedal (R), no edema noted Generalized Neurologic: disoriented, unresponsive, aphasia Irvin Beltrán MD Apr 07, 2019 07:37
[2019-04-07] MEDS: Heparin 5000 units/ml inj SUBQ SCH ×2 (08:09→20:48)
--- NOTE | 2019-04-07 08:29 | Pulmonology Progress Note ---
Assessment/Plan Assessment/Plan Impression: history of Sepsis history of Pneumonia Trach, G tube, Hypertension, Cardiac disease, Dementia, Previous CVA, Seizure disorder, Respiratory failure with hypoxia Anemia, Sacral ulcer renal cyst chronic pulmonary congestion Plan continue same neb therapy to continue off vent and monitor as is oxygen as needed aspiration precautions to continue elevate head and monitor secretions DNR. No CPR. ICU care reviewed all changes noted hope to transfer to [facility] if family agrees medications/laboratory data/nursing notes/ICU care reviewed in detail note reviewed and edited care discussed with RN and RT Subjective ROS Limited/Unobtainable: Yes Allergies: Coded Allergies: CODEINE (Verified Allergy, Unknown, HIVES, 09/15/09) Subjective respiratory care reviewed events noted overnight ICU care reviewed bed bound and obtunded HH improved dc planning noted findings reviewed Objective Last 24 Hour Vital Signs Date Time Temp Pulse Resp B/P (MAP) Pulse Ox O2 Delivery O2 Flow Rate FiO2 04/07/19 07:13 100 T-Piece 5.0 28 04/07/19 07:10 69 22 100 T-Piece 5.0 28 65 20 100 04/07/19 07:00 73 19 133/61 (85) 04/07/19 06:00 68 19 121/57 (78) 04/07/19 05:00 71 20 96/53 (67) 99 04/07/19 04:00 5.0 28 04/07/19 04:00 96.5 75 20 103/47 (65) 100 04/07/19 04:00 72 04/07/19 04:00 T-piece 5.0 T-piece 5.0 04/07/19 03:16 78 23 100 T-Piece 5.0 28 04/07/19 03:06 75 21 100 T-Piece 5.0 28 04/07/19 03:00 84 23 126/55 (78) 100 04/07/19 02:00 73 20 117/56 (76) 100 04/07/19 01:11 100 T-Piece 5.0 28 04/07/19 01:00 73 22 112/62 (79) 100 04/07/19 00:00 96.6 69 20 95/44 (61) 100 04/07/19 00:00 5.0 28 04/07/19 00:00 71 04/07/19 00:00 T-piece 5.0 T-piece 5.0 04/06/19 23:28 80 21 100 T-Piece 5.0 28 04/06/19 23:18 73 21 99 T-Piece 5.0 28 04/06/19 23:00 77 21 95/47 (63) 98 04/06/19 22:00 65 19 133/58 (83) 99 04/06/19 21:00 72 20 152/72 (98) 100 04/06/19 20:00 T-piece 5.0 T-piece 5.0 04/06/19 20:00 98.3 78 24 140/56 (84) 100 04/06/19 20:00 5.0 28 04/06/19 19:47 78 23 100 T-Piece 5.0 28 04/06/19 19:47 74 04/06/19 19:37 71 20 99 T-Piece 5.0 28 04/06/19 19:37 99 T-Piece 5.0 28 04/06/19 19:00 64 19 120/48 (72) 100 04/06/19 18:00 63 21 111/57 (75) 98 04/06/19 17:00 71 19 142/58 (86) 98 04/06/19 16:00 98.2 64 20 112/56 (74) 93 04/06/19 16:00 68 04/06/19 16:00 T-piece 5.0 T-piece 5.0 04/06/19 16:00 5.0 28 04/06/19 15:04 66 20 100 T-Piece 5.0 28 64 20 100 04/06/19 15:00 68 17 164/64 (97) 96 04/06/19 14:00 67 20 152/64 (93) 100 04/06/19 13:38 100 T-Piece 5.0 28 04/06/19 13:00 66 20 150/55 (86) 100 04/06/19 12:00 5.0 28 04/06/19 12:00 T-piece 5.0 T-piece 5.0 04/06/19 12:00 66 04/06/19 12:00 98.3 68 20 152/49 (83) 100 04/06/19 11:15 162/58 04/06/19 11:00 64 19 160/56 (90) 100 1/6/20 11:00 68 20 100 T-Piece 5.0 28 65 20 100 04/06/19 10:00 79 14 152/63 (92) 100 04/06/19 09:00 64 18 157/97 (117) 100 Intake and Output 04/06/19 04/07/19 19:00 07:00 Intake Total 890 ml 875 ml Output Total 950 ml 1750 ml Balance -60 ml -875 ml Free Water 150 ml 75 ml IV Total 200 ml Tube Feeding 390 ml 725 ml Other 150 ml 75 ml Output Urine Total 400 ml 150 ml Gastric Drainage Total 150 ml Other 400 ml 1600 ml # Voids 3 Objective WDWN NAD contracted off vent reduced breath sounds bilaterally with scattered rhonchi [id number] without MRG NABS nontender no HSM no CC trace edema nonfocal nonverbal trach and gt reviewed and edited Laboratory Tests 04/07/19 03:30: White Blood Count 8.4, Red Blood Count 4.03L, Hemoglobin 11.8L, Hematocrit 36.1L , Mean Corpuscular Volume 90, Mean Corpuscular Hemoglobin 29.3, Mean Corpuscular Hemoglobin Concent 32.8, Red Cell Distribution Width 15.1H, Platelet Count 216, Mean Platelet Volume 6.0L, Neutrophils (%) (Auto) 54.3, Lymphocytes (%) (Auto) 32.6, Monocytes (%) (Auto) 6.4, Eosinophils (%) (Auto) 5.8H, Basophils (%) (Auto) 0.9, Sodium Level 139, Potassium Level 3.5, Chloride Level 104, Carbon Dioxide Level 29, Anion Gap 6, Blood Urea Nitrogen 33H, Creatinine 0.9, Estimat Glomerular Filtration Rate , Glucose Level 115H, Calcium Level 8.6, Total Bilirubin 0.2, Aspartate Amino Transf (AST/SGOT) 33, Alanine Aminotransferase (ALT/SGPT) 88H, Alkaline Phosphatase 144H, Total Protein 8.1, Albumin 2.9L, Globulin 5.2, Albumin/Globulin Ratio 0.6L Current Medications Medications (Trade) Dose Ordered Sig/Maicol Route PRN Reason Start Time Stop Time Status Last Admin Dose Admin Acetaminophen (Tylenol) 650 mg Q6H PRN GT Mild Pain/Temp > 100.5 03/23/19 15:15 04/22/19 15:14 04/03/19 08:55 Albuterol/ Ipratropium (Albuterol/ Ipratropium) 3 ml Q4HRT HHN 04/04/19 23:00 04/09/19 22:59 04/07/19 07:10 Chlorhexidine Gluconate (Cesilia-Hex 2%) 1 applic DAILY@1999 TOPIC 03/12/19 20:00 04/11/19 19:59 04/06/19 20:06 Heparin Sodium (Porcine) (Heparin 5000 units/ml) 5,000 units EVERY 12 HOURS SUBQ 04/01/19 10:00 05/01/19 09:59 04/07/19 08:09 Hydralazine HCl (Apresoline) 25 mg Q6H PRN ORAL SBP above 150 04/06/19 02:45 05/06/19 02:44 04/06/19 11:15 Lansoprazole (Prevacid) 30 mg Q12HR GT 03/29/19 09:00 04/24/19 20:59 04/07/19 08:08 Ondansetron HCl (Zofran) 4 mg Q4H PRN IVP Nausea & Vomiting 03/18/19 18:15 04/17/19 18:14 03/21/19 08:27 Sorbitol (Sorbitol) 45 ml ONCE GT 04/07/19 09:00 04/07/19 10:00 04/07/19 08:08 Amaury Chan MD Apr 07, 2019 08:29
--- NOTE | 2019-04-07 08:30 | NUR ---
NURSE NOTES: Due meds given via GT and clamped gtube. Flushed 75ml water each port. Will continue plan of care.
[2019-04-07] MEDS ORDERED: Sorbitol Solution UD 30ml GT SCH (09:00)
--- NOTE | 2019-04-07 09:35 | NUR ---
NURSE NOTES: Unclamped Gtube.
[2019-04-07 09:56] LABS: PHOSPHORUS 3.4 MG/DL (2.5-4.9)
--- NOTE | 2019-04-07 10:02 | NUR ---
NURSE NOTES: Repositioned patient and trach and oral suction provided.
--- NOTE | 2019-04-07 10:02 | Infectious Diseases Prog Note ---
Assessment/Plan Assessment/Plan A 1. Providencia & Klebsiella pneumonia treated 2. respiratory failure 3. hypertension 4. CVA 5. dementia 6. sacral decubitus ulcer 7. rectal VRE colonization 8. Anemia 9. Proteus UTI 10. Acute renal failure 11. Leukocytosis resolved P 1.Observe off antibiotic 2. Frequent suctioning 3. Remove PICC line before discharge Subjective ROS Limited/Unobtainable: Yes Constitutional: Denies: fever Allergies: Coded Allergies: CODEINE (Verified Allergy, Unknown, HIVES, 09/15/09) Objective Vital Signs Last 24 Hour Vital Signs Date Time Temp Pulse Resp B/P (MAP) Pulse Ox O2 Delivery O2 Flow Rate FiO2 04/07/19 07:13 100 T-Piece 5.0 28 04/07/19 07:10 69 22 100 T-Piece 5.0 28 65 20 100 04/07/19 07:00 73 19 133/61 (85) 04/07/19 06:00 68 19 121/57 (78) 04/07/19 05:00 71 20 96/53 (67) 99 04/07/19 04:00 5.0 28 04/07/19 04:00 96.5 75 20 103/47 (65) 100 04/07/19 04:00 72 04/07/19 04:00 T-piece 5.0 T-piece 5.0 04/07/19 03:16 78 23 100 T-Piece 5.0 28 04/07/19 03:06 75 21 100 T-Piece 5.0 28 04/07/19 03:00 84 23 126/55 (78) 100 04/07/19 02:00 73 20 117/56 (76) 100 04/07/19 01:11 100 T-Piece 5.0 28 04/07/19 01:00 73 22 112/62 (79) 100 04/07/19 00:00 96.6 69 20 95/44 (61) 100 04/07/19 00:00 5.0 28 04/07/19 00:00 71 04/07/19 00:00 T-piece 5.0 T-piece 5.0 04/06/19 23:28 80 21 100 T-Piece 5.0 28 04/06/19 23:18 73 21 99 T-Piece 5.0 28 04/06/19 23:00 77 21 95/47 (63) 98 04/06/19 22:00 65 19 133/58 (83) 99 04/06/19 21:00 72 20 152/72 (98) 100 04/06/19 20:00 T-piece 5.0 T-piece 5.0 04/06/19 20:00 98.3 78 24 140/56 (84) 100 04/06/19 20:00 5.0 28 04/06/19 19:47 78 23 100 T-Piece 5.0 28 04/06/19 19:47 74 04/06/19 19:37 71 20 99 T-Piece 5.0 28 04/06/19 19:37 99 T-Piece 5.0 28 04/06/19 19:00 64 19 120/48 (72) 100 04/06/19 18:00 63 21 111/57 (75) 98 04/06/19 17:00 71 19 142/58 (86) 98 04/06/19 16:00 98.2 64 20 112/56 (74) 93 04/06/19 16:00 68 04/06/19 16:00 T-piece 5.0 T-piece 5.0 04/06/19 16:00 5.0 28 04/06/19 15:04 66 20 100 T-Piece 5.0 28 64 20 100 04/06/19 15:00 68 17 164/64 (97) 96 04/06/19 14:00 67 20 152/64 (93) 100 04/06/19 13:38 100 T-Piece 5.0 28 04/06/19 13:00 66 20 150/55 (86) 100 04/06/19 12:00 5.0 28 04/06/19 12:00 T-piece 5.0 T-piece 5.0 04/06/19 12:00 66 04/06/19 12:00 98.3 68 20 152/49 (83) 100 04/06/19 11:15 162/58 04/06/19 11:00 64 19 160/56 (90) 100 04/06/19 11:00 68 20 100 T-Piece 5.0 28 65 20 100 Height (Feet): 5 Height (Inches): 3.00 Weight (Pounds): 130 General Appearance: no acute distress HEENT: status post trach Respiratory/Chest: other - coarse sounds on T bar Cardiovascular: normal rate, other - R arm PICC line Abdomen: soft, non tender, other - GJ tube Extremities: no edema Neurologic/Psychiatric: aphasia Laboratory Tests Test 04/07/19 03:30 White Blood Count 8.4 K/UL (4.8-10.8) Red Blood Count 4.03 M/UL (4.20-5.40) L Hemoglobin 11.8 G/DL (12.0-16.0) L Hematocrit 36.1 % (37.0-47.0) L Mean Corpuscular Volume 90 FL (80-99) Mean Corpuscular Hemoglobin 29.3 PG (27.0-31.0) Mean Corpuscular Hemoglobin Concent 32.8 G/DL (32.0-36.0) Red Cell Distribution Width 15.1 % (11.6-14.8) H Platelet Count 216 K/UL (150-450) Mean Platelet Volume 6.0 FL (6.5-10.1) L Neutrophils (%) (Auto) 54.3 % (45.0-75.0) Lymphocytes (%) (Auto) 32.6 % (20.0-45.0) Monocytes (%) (Auto) 6.4 % (1.0-10.0) Eosinophils (%) (Auto) 5.8 % (0.0-3.0) H Basophils (%) (Auto) 0.9 % (0.0-2.0) Sodium Level 139 MMOL/L (136-145) Potassium Level 3.5 MMOL/L (3.5-5.1) Chloride Level 104 MMOL/L (98-107) Carbon Dioxide Level 29 MMOL/L (21-32) Anion Gap 6 mmol/L (5-15) Blood Urea Nitrogen 33 mg/dL (7-18) H Creatinine 0.9 MG/DL (0.55-1.30) Estimat Glomerular Filtration Rate mL/min (>60) Glucose Level 115 MG/DL (74-106) H Calcium Level 8.6 MG/DL (8.5-10.1) Phosphorus Level 3.4 MG/DL (2.5-4.9) Magnesium Level 2.3 MG/DL (1.8-2.4) Total Bilirubin 0.2 MG/DL (0.2-1.0) Aspartate Amino Transf (AST/SGOT) 33 U/L (15-37) Alanine Aminotransferase (ALT/SGPT) 88 U/L (12-78) H Alkaline Phosphatase 144 U/L (46-116) H Total Protein 8.1 G/DL (6.4-8.2) Albumin 2.9 G/DL (3.4-5.0) L Globulin 5.2 g/dL Albumin/Globulin Ratio 0.6 (1.0-2.7) L Current Medications Medications (Trade) Dose Ordered Sig/Maicol Route PRN Reason Start Time Stop Time Status Last Admin Dose Admin Acetaminophen (Tylenol) 650 mg Q6H PRN GT Mild Pain/Temp > 100.5 03/23/19 15:15 04/22/19 15:14 04/03/19 08:55 Albuterol/ Ipratropium (Albuterol/ Ipratropium) 3 ml Q4HRT HHN 04/04/19 23:00 04/09/19 22:59 04/07/19 07:10 Chlorhexidine Gluconate (Cesilia-Hex 2%) 1 applic DAILY@1999 TOPIC 03/12/19 20:00 04/11/19 19:59 04/06/19 20:06 Heparin Sodium (Porcine) (Heparin 5000 units/ml) 5,000 units EVERY 12 HOURS SUBQ 04/01/19 10:00 05/01/19 09:59 04/07/19 08:09 Hydralazine HCl (Apresoline) 25 mg Q6H PRN ORAL SBP above 150 04/06/19 02:45 05/06/19 02:44 04/06/19 11:15 Lansoprazole (Prevacid) 30 mg Q12HR GT 03/29/19 09:00 04/24/19 20:59 04/07/19 08:08 Ondansetron HCl (Zofran) 4 mg Q4H PRN IVP Nausea & Vomiting 03/18/19 18:15 04/17/19 18:14 03/21/19 08:27 Chauncey Liriano MD Apr 07, 2019 10:02
--- NOTE | 2019-04-07 11:21 | Nephrology Progress Note ---
Assessment/Plan Problem List: (1) Acute renal failure (ARF) Assessment: Cr stable (2) Chronic respiratory failure (3) Anemia (4) Sepsis Assessment Acute renal failure Respiratory failure - Trach Low Mag- Low k , Low Na Anemia UTI / Sepsis Proteinuria / HypoAlbuminemia high Trigs Sz decubs bed bound DNR Plan Transfused now has JT bolus Albumin as needed K and Mag and Phos supplement as needed Hydrate as needed Urine studies avoid Nephrotoxics mag K Phos supplements as needed monitor renal parameters Subjective ROS Limited/Unobtainable: Yes Objective Objective Last 24 Hour Vital Signs Date Time Temp Pulse Resp B/P (MAP) Pulse Ox O2 Delivery O2 Flow Rate FiO2 04/07/19 11:00 107 16 155/60 (91) 98 04/07/19 10:42 82 21 100 T-Piece 5.0 28 74 20 99 04/07/19 10:00 74 21 141/57 (85) 100 04/07/19 09:00 68 21 130/55 (80) 100 04/07/19 08:00 68 04/07/19 08:00 T-piece 5.0 T-piece 5.0 04/07/19 08:00 98.1 68 20 133/53 (79) 100 04/07/19 08:00 5.0 28 04/07/19 07:13 100 T-Piece 5.0 28 04/07/19 07:10 69 22 100 T-Piece 5.0 28 65 20 100 04/07/19 07:00 73 19 133/61 (85) 04/07/19 06:00 68 19 121/57 (78) 04/07/19 05:00 71 20 96/53 (67) 99 04/07/19 04:00 5.0 28 04/07/19 04:00 96.5 75 20 103/47 (65) 100 04/07/19 04:00 72 04/07/19 04:00 T-piece 5.0 T-piece 5.0 04/07/19 03:16 78 23 100 T-Piece 5.0 28 04/07/19 03:06 75 21 100 T-Piece 5.0 28 04/07/19 03:00 84 23 126/55 (78) 100 04/07/19 02:00 73 20 117/56 (76) 100 04/07/19 01:11 100 T-Piece 5.0 28 04/07/19 01:00 73 22 112/62 (79) 100 04/07/19 00:00 96.6 69 20 95/44 (61) 100 04/07/19 00:00 5.0 28 04/07/19 00:00 71 04/07/19 00:00 T-piece 5.0 T-piece 5.0 04/06/19 23:28 80 21 100 T-Piece 5.0 28 04/06/19 23:18 73 21 99 T-Piece 5.0 28 04/06/19 23:00 77 21 95/47 (63) 98 04/06/19 22:00 65 19 133/58 (83) 99 04/06/19 21:00 72 20 152/72 (98) 100 04/06/19 20:00 T-piece 5.0 T-piece 5.0 04/06/19 20:00 98.3 78 24 140/56 (84) 100 04/06/19 20:00 5.0 28 04/06/19 19:47 78 23 100 T-Piece 5.0 28 04/06/19 19:47 74 04/06/19 19:37 71 20 99 T-Piece 5.0 28 04/06/19 19:37 99 T-Piece 5.0 28 04/06/19 19:00 64 19 120/48 (72) 100 04/06/19 18:00 63 21 111/57 (75) 98 04/06/19 17:00 71 19 142/58 (86) 98 04/06/19 16:00 98.2 64 20 112/56 (74) 93 04/06/19 16:00 68 04/06/19 16:00 T-piece 5.0 T-piece 5.0 04/06/19 16:00 5.0 28 04/06/19 15:04 66 20 100 T-Piece 5.0 28 64 20 100 04/06/19 15:00 68 17 164/64 (97) 96 04/06/19 14:00 67 20 152/64 (93) 100 04/06/19 13:38 100 T-Piece 5.0 28 04/06/19 13:00 66 20 150/55 (86) 100 04/06/19 12:00 5.0 28 04/06/19 12:00 T-piece 5.0 T-piece 5.0 04/06/19 12:00 66 04/06/19 12:00 98.3 68 20 152/49 (83) 100 Intake and Output 04/06/19 04/07/19 19:00 07:00 Intake Total 890 ml 875 ml Output Total 950 ml 1750 ml Balance -60 ml -875 ml Free Water 150 ml 75 ml IV Total 200 ml Tube Feeding 390 ml 725 ml Other 150 ml 75 ml Output Urine Total 400 ml 150 ml Gastric Drainage Total 150 ml Other 400 ml 1600 ml # Voids 3 Laboratory Tests 04/07/19 03:30: White Blood Count 8.4, Red Blood Count 4.03L, Hemoglobin 11.8L, Hematocrit 36.1L , Mean Corpuscular Volume 90, Mean Corpuscular Hemoglobin 29.3, Mean Corpuscular Hemoglobin Concent 32.8, Red Cell Distribution Width 15.1H, Platelet Count 216, Mean Platelet Volume 6.0L, Neutrophils (%) (Auto) 54.3, Lymphocytes (%) (Auto) 32.6, Monocytes (%) (Auto) 6.4, Eosinophils (%) (Auto) 5.8H, Basophils (%) (Auto) 0.9, Sodium Level 139, Potassium Level 3.5, Chloride Level 104, Carbon Dioxide Level 29, Anion Gap 6, Blood Urea Nitrogen 33H, Creatinine 0.9, Estimat Glomerular Filtration Rate , Glucose Level 115H, Calcium Level 8.6, Phosphorus Level 3.4, Magnesium Level 2.3, Total Bilirubin 0.2, Aspartate Amino Transf (AST/SGOT) 33, Alanine Aminotransferase (ALT/SGPT) 88H, Alkaline Phosphatase 144H, Total Protein 8.1, Albumin 2.9L, Globulin 5.2, Albumin/Globulin Ratio 0.6L Height (Feet): 5 Height (Inches): 3.00 Weight (Pounds): 130 General Appearance: no apparent distress EENT: other - trach to O2 Cardiovascular: other - variable Respiratory/Chest: decreased breath sounds Abdomen: soft, distended Objective no change Eric Cortez MD Apr 07, 2019 11:21
--- NOTE | 2019-04-07 12:02 | NUR ---
NURSE NOTES: Repositioned patient. Oral and trach suction provided.
--- NOTE | 2019-04-07 13:43 | NUR ---
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 PNA. T 97.9 HR 78 RR 21 B/P 124/65 SATS 100% ON 5L/TPIECE FIO2 28 BUN 33 GLU 115 ALT 88 ALP 144 IS: PREVACID GT Q12H ICU STATUS
--- NOTE | 2019-04-07 14:48 | NUR ---
*-* DISCHARGE PLANNING *-* PATIENT HAS BEEN REFERRED TO: [facility] F: [phone]
--- NOTE | 2019-04-07 15:15 | NUR ---
NURSE NOTES: Bed bath given. Oral care provided.
--- NOTE | 2019-04-07 15:23 | Surgery Progress Note ---
Surgery Progress Note Subjective Additional Comments Tolerating tube feeds. Labs improved. Exam stable. Evaluated patient with daughter at bedside last night. Objective Last 24 Hour Vital Signs Date Time Temp Pulse Resp B/P (MAP) Pulse Ox O2 Delivery O2 Flow Rate FiO2 04/07/19 15:00 76 22 141/47 (78) 100 04/07/19 14:00 76 22 138/70 (92) 100 04/07/19 13:00 97.9 78 21 124/65 (84) 100 04/07/19 12:49 100 T-Piece 5.0 28 04/07/19 12:00 76 21 128/61 (83) 99 04/07/19 12:00 5.0 28 04/07/19 12:00 76 04/07/19 12:00 T-piece 5.0 T-piece 5.0 04/07/19 11:00 107 16 155/60 (91) 98 04/07/19 10:42 82 21 100 T-Piece 5.0 28 74 20 99 04/07/19 10:00 74 21 141/57 (85) 100 04/07/19 09:00 68 21 130/55 (80) 100 04/07/19 08:00 68 04/07/19 08:00 T-piece 5.0 T-piece 5.0 04/07/19 08:00 98.1 68 20 133/53 (79) 100 04/07/19 08:00 5.0 28 04/07/19 07:13 100 T-Piece 5.0 28 04/07/19 07:10 69 22 100 T-Piece 5.0 28 65 20 100 04/07/19 07:00 73 19 133/61 (85) 04/07/19 06:00 68 19 121/57 (78) 04/07/19 05:00 71 20 96/53 (67) 99 04/07/19 04:00 5.0 28 04/07/19 04:00 96.5 75 20 103/47 (65) 100 04/07/19 04:00 72 04/07/19 04:00 T-piece 5.0 T-piece 5.0 04/07/19 03:16 78 23 100 T-Piece 5.0 28 04/07/19 03:06 75 21 100 T-Piece 5.0 28 1/7/20 03:00 84 23 126/55 (78) 100 04/07/19 02:00 73 20 117/56 (76) 100 04/07/19 01:11 100 T-Piece 5.0 28 04/07/19 01:00 73 22 112/62 (79) 100 04/07/19 00:00 96.6 69 20 95/44 (61) 100 04/07/19 00:00 5.0 28 04/07/19 00:00 71 04/07/19 00:00 T-piece 5.0 T-piece 5.0 04/06/19 23:28 80 21 100 T-Piece 5.0 28 04/06/19 23:18 73 21 99 T-Piece 5.0 28 04/06/19 23:00 77 21 95/47 (63) 98 04/06/19 22:00 65 19 133/58 (83) 99 04/06/19 21:00 72 20 152/72 (98) 100 04/06/19 20:00 T-piece 5.0 T-piece 5.0 04/06/19 20:00 98.3 78 24 140/56 (84) 100 04/06/19 20:00 5.0 28 04/06/19 19:47 78 23 100 T-Piece 5.0 28 04/06/19 19:47 74 04/06/19 19:37 71 20 99 T-Piece 5.0 28 04/06/19 19:37 99 T-Piece 5.0 28 04/06/19 19:00 64 19 120/48 (72) 100 04/06/19 18:00 63 21 111/57 (75) 98 04/06/19 17:00 71 19 142/58 (86) 98 04/06/19 16:00 98.2 64 20 112/56 (74) 93 04/06/19 16:00 68 04/06/19 16:00 T-piece 5.0 T-piece 5.0 04/06/19 16:00 5.0 28 I&O Intake and Output 04/06/19 04/07/19 19:00 07:00 Intake Total 890 ml 875 ml Output Total 950 ml 1750 ml Balance -60 ml -875 ml Free Water 150 ml 75 ml IV Total 200 ml Tube Feeding 390 ml 725 ml Other 150 ml 75 ml Output Urine Total 400 ml 150 ml Gastric Drainage Total 150 ml Other 400 ml 1600 ml # Voids 3 Dressing: dry Wound: clean Cardiovascular: RSR Respiratory: clear Abdomen: soft, non-tender, present bowel sounds Extremities: no edema, no tenderness, no cyanosis Laboratory Tests Test 04/07/19 03:30 White Blood Count 8.4 K/UL (4.8-10.8) Red Blood Count 4.03 M/UL (4.20-5.40) L Hemoglobin 11.8 G/DL (12.0-16.0) L Hematocrit 36.1 % (37.0-47.0) L Mean Corpuscular Volume 90 FL (80-99) Mean Corpuscular Hemoglobin 29.3 PG (27.0-31.0) Mean Corpuscular Hemoglobin Concent 32.8 G/DL (32.0-36.0) Red Cell Distribution Width 15.1 % (11.6-14.8) H Platelet Count 216 K/UL (150-450) Mean Platelet Volume 6.0 FL (6.5-10.1) L Neutrophils (%) (Auto) 54.3 % (45.0-75.0) Lymphocytes (%) (Auto) 32.6 % (20.0-45.0) Monocytes (%) (Auto) 6.4 % (1.0-10.0) Eosinophils (%) (Auto) 5.8 % (0.0-3.0) H Basophils (%) (Auto) 0.9 % (0.0-2.0) Sodium Level 139 MMOL/L (136-145) Potassium Level 3.5 MMOL/L (3.5-5.1) Chloride Level 104 MMOL/L (98-107) Carbon Dioxide Level 29 MMOL/L (21-32) Anion Gap 6 mmol/L (5-15) Blood Urea Nitrogen 33 mg/dL (7-18) H Creatinine 0.9 MG/DL (0.55-1.30) Estimat Glomerular Filtration Rate mL/min (>60) Glucose Level 115 MG/DL (74-106) H Calcium Level 8.6 MG/DL (8.5-10.1) Phosphorus Level 3.4 MG/DL (2.5-4.9) Magnesium Level 2.3 MG/DL (1.8-2.4) Total Bilirubin 0.2 MG/DL (0.2-1.0) Aspartate Amino Transf (AST/SGOT) 33 U/L (15-37) Alanine Aminotransferase (ALT/SGPT) 88 U/L (12-78) H Alkaline Phosphatase 144 U/L (46-116) H Total Protein 8.1 G/DL (6.4-8.2) Albumin 2.9 G/DL (3.4-5.0) L Globulin 5.2 g/dL Albumin/Globulin Ratio 0.6 (1.0-2.7) L Plan Problems: (1) Sacral decubitus ulcer Assessment & Plan: This is a 83-year-old female with multiple medical committees that is currently admitted for medical care and management and identified to have multiple wounds requiring care. On admission patient noted to have a resolved sacral decubitus ulcer. Has had prior care and is well-healed at this time. Will ensure it does not open up again. Patient has a right ischial decubitus ulcer that is resolved. Scar intact and well formed. Will monitor to ensure it does not open up again. Patient has a left ischial decubitus ulcer that can be identified to be stage IV with palpable bone that has been resolving as noted by the periwound tissue and scar but open area approximately 1 cm x 1.5 cm few millimeters deep to bone identified. Unsure if this is been to be completely healed prior and has since opened or if has been healing at this level. No foul odor no drainage was unsure local wound care until healed Bilateral heels soft without signs of injury Resolving pressure injury L ischium(L)1.8cm x (W)1cm.Scattered biofilm at base of wound. Edges flat and adherent with surrounding hyperpigmentation. No odor or exudate noted. Sacrum is pale pink with surrounding hyperpigmentation. Hyperpigmentation R ischium with small sheared area centrally.No areas of erythema or exudate noted. Both heels are soft but blanchable. Skin Assessed under collar of trach and no evidence of skin breakdown noted. All wound Tx. are effective and continued as ordered. Pt ahs an APM/Belén mattress overlay and is being repositioned per protocols and per tolerance.No new skin concerns noted. Full thickness pressure injury L Ischium with small amt biofilm (L)1.8cm x (W) 1cm. Surrounding pink hyperpigmentation. No odor or exudate noted. [place] hyperpigmentation from previous wound noted to sacrum. Pt also noted to have Cat 2 Skin Tear dorsal L hand, L 5th metatarsal extending into palm of hand. 80% skin flap in situ.Both heels are dry firm and blanchable. No other skin concerns noted. R ischial wound has resolved. [place] epithelial with surrounding hyperpigmentation. from historical wound. Full thickness pressure injury L ischium. [place] granulation at base of wound. Borders are macerated with Surrounding hyperpigmentation.Small amt non-odorous serous exudate noted.(L)0.7cm x (W)0.8cm. Skin hyperpigmentation from historical wound noted to Sacrum. Small sheared area noted to sacrococcygeal area.(L)0.4cm x (W)0.3cm.Small amt sanguineous exudate noted. Reabsorbed blister with semi-detached dry necrotic cap noted to web space of L thumb and L index fingers extending into palm of L hand. No odor or exudate noted. Skin assessed under tracheal collar and no erythema or evidence of Skin Breakdown noted. NO new skin concerns noted . Good hand hygiene provided to both hands. R hand contracted and fisted. Fingernails trimmed. Wound care provided along with Primary nurse. Wound Tx continued as ordered. New order obtained from to apply Betadine to wound L hand Daily. Tx done as ordered. L hand wrapped with kerlix weaving kerlix between fingers to separate fingers. Moisture Barrier applied to sacrum ,R ischium. Each site covered with Optifoam drsg. Both lower ext washed and moisturized. [place] Skin Barrier applied to both heels.Each heel covered with Optifoam drsgs. Pt positioned with pillows and both heels off-loaded with pillow. Tx.Plan: Apply Betadine to wound L hand. Cover with Gauze and wrap with Kerlix Daily and prn. Cleanse L ischial wound with Saline. Apply Therahoney. Apply Moisture Barrier periwound. Cover with Optifoam drsgevery 3 days and prn. Apply Moisture Barrier Paste to R ischium and Sacrum. Cover each area with Optifoam drsg. Change every 3 days and prn. Apply Cav[place] Skin Barrier to both heels. Cover each heel with Optifoam drsg. Change every 7 days and prn. APM/BELÉN Mattress overlay. Reposition at least every 2hours or as tolerated. Off-load heels with pillow. Cleanse Blister Dorsal and palm of L hand with saline. Versatel One Silicone Contact Layer(Applied). Apply Silvasorb Gel. Wrap with Kerlix Gauze.Change every 7 days and prn. Apply Moisture Barrier to sacrum. Cover with Optifoam drsg. Change every 3 days and prn. Cleanse L ischial wound with saline. Apply Therahoney. Apply Moisture Barrier Paste periwound. Cover with Optifoam drsg. Change every 3 days and prn. Apply Cavilon Skin Barrier to both heels. Cover each heel with Optifoam drsg. Change every 7 days and prn. APM/BELÉN Mattress overlay. Reposition at least every 2hours or as tolerated. Off-load heels with pillow. Nutritional optimization We will monitor follow with recommendations cont with above upon d/c (2) Sepsis Assessment & Plan: IV abx as per ID trend labs improving wounds unlikely etiology likely respiratory imaging noted and okay abnormal lft's stable PICC on Abx in ICU for desaturation CXR with consolidation cont with frequent suctioning d/c planning g j via GI daughter wants close attention to wounds and management to ensure healing Evidence of left lower lobe pneumonia, also previously demonstrated Gastrostomy in good position Mild diastasis of the rectus abdominis musculature again demonstrated Retrosacral decubitus changes, better depicted on prior exam which included the pelvis Small hiatal hernia with evidence of trace gastroesophageal reflux Discussed with GI. Recommend GJ family still pending decision transfuse prbc prn monitor h/h monitor bm LFTs improving trending down (3) Feeding by G-tube Assessment & Plan: DAILY ESTIMATED NEEDS: Needs based on Pulmonary, wounds, bedbound/ 61kg adj 25-30 kcals/kg [id number] total kcals 1.25-2 g protein/kg 76-122 g total protein 25-30 mL/kg [id number] total fluid mLs NUTRITION DIAGNOSIS: * Increased kcal/prot needs R/T wound healing as evidenced by BL buttocks and sacral wound photos, refer to reynaldo. * Swallowing difficulty R/T respiratory status as evidenced by pt on T-collar, s/p G-J conversion CURRENT TF:Glucerna 1.5 @ 50ml/hr x 24 hrs ENTERAL NUTRITION RECOMMENDATIONS: Glucerna 1.5 @ 50ml/hr x 24 hrs to provide 1200ml, 1800 kcal, 99g pro, 911ml free H2O - Maintain at current rate as tolerated to meet 100% est needs - HOB over 30 degrees - INCREASE water flush of 170ml q 6 hrs ADDITIONAL RECOMMENDATIONS: 1) RE-calibrate bedscale wt: fluctuating daily wts (108#-136# last 6 days) 2) Wound healing: Add Cristian 1pkt BID w/ continued good TF tolerance. 3) Increase water flushes, monitor for signs of water deficits 4) Monitor BGs closely, need for NISS -> now w/ improved BGs 5) Monitor for continued good TF tolerance 6) Monitor K : elev K on 03/25, s/p Kdur BID, now dc'ed. (4) Chronic vegetative state Assessment & Plan: incontinence of urine and stool. can soil dressings. nurses doing great job with monitoring and changing prn (5) Leukocytosis Walter Madera Apr 07, 2019 15:23
--- NOTE | 2019-04-07 16:20 | NUR ---
NURSE NOTES: Oral care provided and repositioned.
--- NOTE | 2019-04-07 17:25 | NUR ---
NURSE NOTES: Check BS 99. No change in condition. Still with FiO2 28% via shiley 6.
--- NOTE | 2019-04-07 19:19 | NUR ---
RESPIRATORY NOTE:Received pt on Cool Aerosol t-piece FiO2 28% with [id number] cuff deflated. pt tolerating so far. no s/s of respiratory distress noted. will continue to monitor pt.
--- NOTE | 2019-04-07 19:26 | NUR ---
HAND-OFF: Report given to JEANNINE Howard. Endorsed plan of care
--- NOTE | 2019-04-07 19:30 | NUR ---
NURSE NOTES: Received pt with open eyes but no eye contact, (flat affect), SR on the monitor, bp stable afebrile. Pt on 28% 02 via trache, 02 sat >92%, HOB kept elevated Watch . On 2for any resp. distress, Pt on Vital AF 1.2 at 60ml/hr,tolerating well . Flushed of 75ml free water Q 4hrs. .. Pt with healed pressure sores sacral area with optifoam clean and dry. Will continue to monitor.
[2019-04-07] MEDS: Dyna-Hex 2% Top Sol 2oz TOPIC SCH (20:02)
--- NOTE | 2019-04-07 21:00 | NUR ---
NURSE NOTES: Flushes 75ml water each to both GT and JT to maintain patency of the tube.
--- NOTE | 2019-04-07 21:00 | NUR ---
NURSE NOTES: Suctioned tn whitish boles frothy secretions moderate in amt. HOB kept elevated wach for any resp. distress.
--- NOTE | 2019-04-07 21:16 | General Progress Note ---
Assessment/Plan Status: stable, progressing Assessment/Plan: Assessment - N/V - resolved with G --> J conversion - constipation - resolved - Elevated Alk phos / LFT - CT negative - abd U/S negative - check hepatitis serologies - negative - possibly MURRAY / Fatty liver - Anemia with OB (-) stools (? falsely low CBC yesterday) - Resp failure, s/p Trach - dysphagia, s/p PEG --> GJ tube - OBS, vegetative obtunded unresponsive state, bedbound with contracted extremities, - h/o minor GJ tube site irritation - Early J port occlusion, possibly due to thick diabetic TF formula - Elevated glucose - poor Prognosis Recommendations - laxative PRN - antibiotic ointment to GJT site PRN - aspiration precautions - elevate HOB - Vital AF 1.2 - check q 6 hour FS - transfuse to keep Hg > 7 - J tube feeds - G tube drain Subjective Allergies: Coded Allergies: CODEINE (Verified Allergy, Unknown, HIVES, 09/15/09) Subjective above noted tolerating TF via J port No BM x 2 days per RN orders for GT sorbitol given Objective Last 24 Hour Vital Signs Date Time Temp Pulse Resp B/P (MAP) Pulse Ox O2 Delivery O2 Flow Rate FiO2 04/07/19 19:16 100 23 99 T-Piece 5.0 28 98 20 98 04/07/19 19:16 99 T-Piece 5.0 28 04/07/19 19:00 84 23 91/46 (61) 97 04/07/19 18:00 84 25 133/57 (82) 100 04/07/19 17:00 82 21 95/45 (62) 100 04/07/19 16:00 98.5 78 22 129/54 (79) 99 04/07/19 16:00 T-piece 5.0 T-piece 5.0 04/07/19 16:00 75 04/07/19 16:00 5.0 28 04/07/19 15:54 77 22 100 T-Piece 5.0 28 75 21 99 04/07/19 15:00 76 22 141/47 (78) 100 04/07/19 14:00 76 22 138/70 (92) 100 04/07/19 13:00 97.9 78 21 124/65 (84) 100 04/07/19 12:49 100 T-Piece 5.0 28 04/07/19 12:00 76 21 128/61 (83) 99 04/07/19 12:00 5.0 28 04/07/19 12:00 76 04/07/19 12:00 T-piece 5.0 T-piece 5.0 04/07/19 11:00 107 16 155/60 (91) 98 04/07/19 10:42 82 21 100 T-Piece 5.0 28 74 20 99 04/07/19 10:00 74 21 141/57 (85) 100 04/07/19 09:00 68 21 130/55 (80) 100 04/07/19 08:00 68 04/07/19 08:00 T-piece 5.0 T-piece 5.0 04/07/19 08:00 98.1 68 20 133/53 (79) 100 04/07/19 08:00 5.0 28 04/07/19 07:13 100 T-Piece 5.0 28 04/07/19 07:10 69 22 100 T-Piece 5.0 28 65 20 100 04/07/19 07:00 73 19 133/61 (85) 04/07/19 06:00 68 19 121/57 (78) 04/07/19 05:00 71 20 96/53 (67) 99 04/07/19 04:00 5.0 28 04/07/19 04:00 96.5 75 20 103/47 (65) 100 04/07/19 04:00 72 04/07/19 04:00 T-piece 5.0 T-piece 5.0 04/07/19 03:16 78 23 100 T-Piece 5.0 28 04/07/19 03:06 75 21 100 T-Piece 5.0 28 04/07/19 03:00 84 23 126/55 (78) 100 04/07/19 02:00 73 20 117/56 (76) 100 04/07/19 01:11 100 T-Piece 5.0 28 04/07/19 01:00 73 22 112/62 (79) 100 04/07/19 00:00 96.6 69 20 95/44 (61) 100 04/07/19 00:00 5.0 28 04/07/19 00:00 71 04/07/19 00:00 T-piece 5.0 T-piece 5.0 04/06/19 23:28 80 21 100 T-Piece 5.0 28 04/06/19 23:18 73 21 99 T-Piece 5.0 28 04/06/19 23:00 77 21 95/47 (63) 98 04/06/19 22:00 65 19 133/58 (83) 99 Intake and Output 04/06/19 04/07/19 18:59 06:59 Intake Total 835 ml 865 ml Output Total 750 ml 1950 ml Balance 85 ml -1085 ml Free Water 150 ml 75 ml IV Total 200 ml Tube Feeding 335 ml 715 ml Other 150 ml 75 ml Output Urine Total 400 ml 150 ml Gastric Drainage Total 150 ml Other 200 ml 1800 ml Laboratory Tests 04/07/19 03:30: White Blood Count 8.4, Red Blood Count 4.03L, Hemoglobin 11.8L, Hematocrit 36.1L , Mean Corpuscular Volume 90, Mean Corpuscular Hemoglobin 29.3, Mean Corpuscular Hemoglobin Concent 32.8, Red Cell Distribution Width 15.1H, Platelet Count 216, Mean Platelet Volume 6.0L, Neutrophils (%) (Auto) 54.3, Lymphocytes (%) (Auto) 32.6, Monocytes (%) (Auto) 6.4, Eosinophils (%) (Auto) 5.8H, Basophils (%) (Auto) 0.9, Sodium Level 139, Potassium Level 3.5, Chloride Level 104, Carbon Dioxide Level 29, Anion Gap 6, Blood Urea Nitrogen 33H, Creatinine 0.9, Estimat Glomerular Filtration Rate , Glucose Level 115H, Calcium Level 8.6, Phosphorus Level 3.4, Magnesium Level 2.3, Total Bilirubin 0.2, Aspartate Amino Transf (AST/SGOT) 33, Alanine Aminotransferase (ALT/SGPT) 88H, Alkaline Phosphatase 144H, Total Protein 8.1, Albumin 2.9L, Globulin 5.2, Albumin/Globulin Ratio 0.6L Height (Feet): 5 Height (Inches): 3.00 Weight (Pounds): 130 Objective Debilitated AA woman non-verbal, obtunded NCAT (+) trach coarse BS RR obese abd, (+) GJT no edema (+) contractured extremities Celio Vaughan MD Apr 07, 2019 21:15
--- NOTE | 2019-04-07 21:30 | Progress Note ---
DATE: 04/07/2019 CARDIOLOGY PROGRESS NOTE SUBJECTIVE: The patient remains on G-tube. No distress. Tolerating feedings by J-tube. No residuals. Monitored rhythm sinus. OBJECTIVE: VITAL SIGNS: Blood pressure 96/53 to 121/57, heart rate 68, and respiratory rate 19. LUNGS: Bilateral breath sounds. HEART: Regular rhythm and rate. Normal S1, S2 with a fourth heart sound. ABDOMEN: GJ-tube site intact. EXTREMITIES: There is trace dependent edema. LABORATORY DATA: White count 8.4 and hemoglobin 11.8. Potassium 3.5. Magnesium 2.3. Phosphorus 3.4, BUN 33, and creatinine 0.9. AST and ALT are normalized. IMPRESSION: Improved. PLAN: 1. Continue current cardiovascular regimen. 2. Additional potassium supplementation ordered. Bg Hagen M.D. DR: DAMEON JOB#: [id number] CC:
--- NOTE | 2019-04-07 23:00 | NUR ---
NURSE NOTES: Diuresing well via purewick fernando yellow urine moderate in amt. perinneal care done.
[2019-04-08] VITALS (24 sets, daily range): BP systolic 94–154; BP diastolic 39–74
--- NOTE | 2019-04-08 01:00 | NUR ---
NURSE NOTES: Condition unchanged. VSS.
--- NOTE | 2019-04-08 03:00 | NUR ---
NURSE NOTES: Complete bath with bed changed done.
[2019-04-08] MEDS: Albuterol/Ipratropium 3ml neb HHN SCH ×6 (03:29→23:42)
--- NOTE | 2019-04-08 05:00 | NUR ---
NURSE NOTES: sacral drsg changed. Pressure injury appeared healed.
--- NOTE | 2019-04-08 06:30 | NUR ---
NURSE NOTES: Accucheck 107mg/dl- No coverage.
--- NOTE | 2019-04-08 07:18 | NUR ---
NURSE NOTES: Received report from JEANNINE Howard. Patient open her eyes without tracking. Shiley 6 with FiO2 28% GJ tube intact, tube feeding Vital 1.2 65ml/hr via Jtube and Gtube drain by gravity. Right upper arm PICC intact and clean with TKO. Kept dry, clean, comfortable and HOB>30. Will continue plan of care.
--- NOTE | 2019-04-08 07:20 | NUR ---
HAND-OFF: Report given to Joseph PAEZ.
[2019-04-08] MEDS: Ferrous Sulfate 300 MG/5 ML UDC GT SCH ×3 (08:15→17:28)
[2019-04-08] MEDS: Heparin 5000 units/ml inj SUBQ SCH ×2 (08:17→20:23)
--- NOTE | 2019-04-08 08:20 | NUR ---
NURSE NOTES: Oral and trach care provided. Repositioned patient.
--- NOTE | 2019-04-08 08:55 | NUR ---
NURSE NOTES: All due meds given as ordered.
--- NOTE | 2019-04-08 10:30 | NUR ---
NURSE NOTES: Repositioned and oral care provided.
--- NOTE | 2019-04-08 11:06 | Infectious Diseases Prog Note ---
"Assessment/Plan Assessment/Plan antibiotics : none A 1. klebsiella | providencia pneumonia s/p rx 2. respiratory failure 3. hypertension 4. CVA 5. dementia 6. sacral decubitus ulcer 7. rectal VRE colonization P 1. observe off antibiotics 2. dc planned Subjective ROS Limited/Unobtainable: Yes Allergies: Coded Allergies: CODEINE (Verified Allergy, Unknown, HIVES, 09/15/09) Objective Vital Signs Last 24 Hour Vital Signs Date Time Temp Pulse Resp B/P (MAP) Pulse Ox O2 Delivery O2 Flow Rate FiO2 04/08/19 10:52 81 22 100 T-Piece 5.0 28 82 22 100 04/08/19 10:00 73 22 119/57 (77) 100 04/08/19 09:00 97.8 73 23 107/47 (67) 100 04/08/19 08:00 74 22 107/47 (67) 100 04/08/19 08:00 78 04/08/19 08:00 T-piece 5.0 T-piece 5.0 04/08/19 08:00 5.0 28 04/08/19 07:21 99 T-Piece 5.0 28 04/08/19 07:20 74 22 100 T-Piece 5.0 28 111 22 99 04/08/19 07:00 76 22 109/48 (68) 100 04/08/19 06:00 77 21 112/50 (70) 100 04/08/19 05:00 73 21 113/48 (69) 100 04/08/19 04:00 T-piece 5.0 T-piece 5.0 04/08/19 04:00 5.0 28 04/08/19 04:00 83 04/08/19 04:00 98.2 83 21 109/58 (75) 100 04/08/19 03:30 85 22 99 T-Piece 5.0 28 79 24 99 04/08/19 03:00 80 24 110/48 (68) 100 04/08/19 02:00 79 24 108/48 (68) 100 04/08/19 01:01 99 T-Piece 5.0 28 04/08/19 01:00 86 24 111/53 (72) 100 04/08/19 00:00 5.0 28 04/08/19 00:00 T-piece 5.0 T-piece 5.0 04/08/19 00:00 98.8 97 24 110/52 (71) 100 04/08/19 00:00 97 04/07/19 23:09 101 26 99 T-Piece 5.0 28 85 25 99 04/07/19 23:00 87 24 113/52 (72) 100 04/07/19 22:00 89 24 104/42 (62) 99 04/07/19 21:00 90 23 114/52 (72) 100 04/07/19 20:00 T-piece 5.0 T-piece 5.0 04/07/19 20:00 5.0 28 04/07/19 20:00 98.6 84 23 102/46 (64) 100 04/07/19 20:00 86 04/07/19 19:16 100 23 99 T-Piece 5.0 28 98 20 98 04/07/19 19:16 99 T-Piece 5.0 28 04/07/19 19:00 84 23 91/46 (61) 97 04/07/19 18:00 84 25 133/57 (82) 100 04/07/19 17:00 82 21 95/45 (62) 100 04/07/19 16:00 98.5 78 22 129/54 (79) 99 04/07/19 16:00 T-piece 5.0 T-piece 5.0 04/07/19 16:00 75 04/07/19 16:00 5.0 28 04/07/19 15:54 77 22 100 T-Piece 5.0 28 75 21 99 04/07/19 15:00 76 22 141/47 (78) 100 04/07/19 14:00 76 22 138/70 (92) 100 04/07/19 13:00 97.9 78 21 124/65 (84) 100 04/07/19 12:49 100 T-Piece 5.0 28 04/07/19 12:00 76 21 128/61 (83) 99 04/07/19 12:00 5.0 28 04/07/19 12:00 76 04/07/19 12:00 T-piece 5.0 T-piece 5.0 Height (Feet): 5 Height (Inches): 3.00 Weight (Pounds): 125 HEENT: status post trach Respiratory/Chest: lungs clear Cardiovascular: normal rate, regular rhythm, no gallop/murmur Abdomen: soft, non tender, other - GT Extremities: no edema, other - right arm PICC Current Medications Medications (Trade) Dose Ordered Sig/Maicol Route PRN Reason Start Time Stop Time Status Last Admin Dose Admin Acetaminophen (Tylenol) 650 mg Q6H PRN GT Mild Pain/Temp > 100.5 03/23/19 15:15 04/22/19 15:14 04/03/19 08:55 Albuterol/ Ipratropium (Albuterol/ Ipratropium) 3 ml Q4HRT HHN 04/04/19 23:00 04/09/19 22:59 04/08/19 10:39 Atropine Sulfate (Atropine Opth Adriana) 1 drop THREE TIMES A DAY SL 04/08/19 09:00 05/07/19 20:59 04/08/19 08:15 Chlorhexidine Gluconate (Cesilia-Hex 2%) 1 applic DAILY@2000 TOPIC 03/12/19 20:00 04/11/19 19:59 04/07/19 20:02 Ferrous Sulfate (Feosol) 330 mg THREE TIMES A DAY GT 04/08/19 09:00 05/08/19 08:59 04/08/19 08:15 Folic Acid (Folate) 1 mg DAILY GT 04/08/19 09:00 05/08/19 08:59 04/08/19 08:15 Heparin Sodium (Porcine) (Heparin 5000 units/ml) 5,000 units EVERY 12 HOURS SUBQ 04/01/19 10:00 05/01/19 09:59 04/08/19 08:17 Hydralazine HCl (Apresoline) 25 mg Q6H PRN ORAL SBP above 150 04/06/19 02:45 05/06/19 02:44 04/06/19 11:15 Lansoprazole (Prevacid) 30 mg Q12HR GT 03/29/19 09:00 04/24/19 20:59 04/08/19 08:16 Levetiracetam (Keppra) 750 mg Q12HR GT 04/07/19 21:00 05/07/19 20:59 04/08/19 08:15 Ondansetron HCl (Zofran) 4 mg Q4H PRN IVP Nausea & Vomiting 03/18/19 18:15 04/17/19 18:14 03/21/19 08:27 Geovany Yang MD Apr 08, 2019 11:06"
--- NOTE | 2019-04-08 12:20 | NUR ---
NURSE NOTES: Repositioned patient. Trach suction given.
--- NOTE | 2019-04-08 13:25 | NUR ---
NURSE NOTES: Seen by Wound Care Nurse and assessed patient, treatment given.
--- NOTE | 2019-04-08 15:12 | Pulmonology Progress Note ---
Assessment/Plan Assessment/Plan Impression: history of Sepsis history of Pneumonia Trach, G tube, Hypertension, Cardiac disease, Dementia, Previous CVA, Seizure disorder, Respiratory failure with hypoxia Anemia, Sacral ulcer renal cyst chronic pulmonary congestion Plan continue same neb therapy to continue off vent and monitor as is oxygen as needed aspiration precautions to continue elevate head and monitor secretions DNR. No CPR. ICU care reviewed all changes noted hope to transfer to [place] if family agrees medications/laboratory data/nursing notes/ICU care reviewed in detail note reviewed and edited care discussed with RN and RT Subjective ROS Limited/Unobtainable: Yes Allergies: Coded Allergies: CODEINE (Verified Allergy, Unknown, HIVES, 09/15/09) Subjective respiratory care reviewed events noted overnight ICU care issues discussed bed bound and obtunded HHnoted dc planning noted findings reviewed Objective Last 24 Hour Vital Signs Date Time Temp Pulse Resp B/P (MAP) Pulse Ox O2 Delivery O2 Flow Rate FiO2 04/08/19 14:48 74 21 100 T-Piece 5.0 28 73 21 100 04/08/19 13:41 100 T-Piece 5.0 28 04/08/19 13:00 84 24 154/74 (100) 100 04/08/19 12:00 T-piece 5.0 T-piece 5.0 04/08/19 12:00 83 21 123/47 (72) 99 04/08/19 12:00 79 04/08/19 12:00 5.0 28 04/08/19 11:00 81 22 114/48 (70) 100 04/08/19 10:52 81 22 100 T-Piece 5.0 28 82 22 100 04/08/19 10:00 73 22 119/57 (77) 100 04/08/19 09:00 97.8 73 23 107/47 (67) 100 04/08/19 08:00 74 22 107/47 (67) 100 04/08/19 08:00 78 04/08/19 08:00 T-piece 5.0 T-piece 5.0 04/08/19 08:00 5.0 28 04/08/19 07:21 99 T-Piece 5.0 28 04/08/19 07:20 74 22 100 T-Piece 5.0 28 111 22 99 04/08/19 07:00 76 22 109/48 (68) 100 04/08/19 06:00 77 21 112/50 (70) 100 04/08/19 05:00 73 21 113/48 (69) 100 04/08/19 04:00 T-piece 5.0 T-piece 5.0 04/08/19 04:00 5.0 28 04/08/19 04:00 83 04/08/19 04:00 98.2 83 21 109/58 (75) 100 04/08/19 03:30 85 22 99 T-Piece 5.0 28 79 24 99 04/08/19 03:00 80 24 110/48 (68) 100 04/08/19 02:00 79 24 108/48 (68) 100 04/08/19 01:01 99 T-Piece 5.0 28 04/08/19 01:00 86 24 111/53 (72) 100 04/08/19 00:00 5.0 28 04/08/19 00:00 T-piece 5.0 T-piece 5.0 04/08/19 00:00 98.8 97 24 110/52 (71) 100 04/08/19 00:00 97 04/07/19 23:09 101 26 99 T-Piece 5.0 28 85 25 99 04/07/19 23:00 87 24 113/52 (72) 100 04/07/19 22:00 89 24 104/42 (62) 99 04/07/19 21:00 90 23 114/52 (72) 100 04/07/19 20:00 T-piece 5.0 T-piece 5.0 04/07/19 20:00 5.0 28 04/07/19 20:00 98.6 84 23 102/46 (64) 100 04/07/19 20:00 86 04/07/19 19:16 100 23 99 T-Piece 5.0 28 98 20 98 04/07/19 19:16 99 T-Piece 5.0 28 04/07/19 19:00 84 23 91/46 (61) 97 04/07/19 18:00 84 25 133/57 (82) 100 04/07/19 17:00 82 21 95/45 (62) 100 04/07/19 16:00 98.5 78 22 129/54 (79) 99 04/07/19 16:00 T-piece 5.0 T-piece 5.0 04/07/19 16:00 75 04/07/19 16:00 5.0 28 04/07/19 15:54 77 22 100 T-Piece 5.0 28 75 21 99 Intake and Output 04/07/19 04/08/19 19:00 07:00 Intake Total 1230 ml 1295 ml Output Total 600 ml 720 ml Balance 630 ml 575 ml Free Water 225 ml 225 ml Tube Feeding 780 ml 845 ml Other 225 ml 225 ml Output Urine Total 400 ml 510 ml Gastric Drainage Total 200 ml 210 ml Objective WDWN NAD contracted off vent reduced breath sounds bilaterally with scattered rhonchi [id number] without MRG NABS nontender no HSM no CC trace edema nonfocal nonverbal trach and gt reviewed and edited Current Medications Medications (Trade) Dose Ordered Sig/Maicol Route PRN Reason Start Time Stop Time Status Last Admin Dose Admin Acetaminophen (Tylenol) 650 mg Q6H PRN GT Mild Pain/Temp > 100.5 03/23/19 15:15 04/22/19 15:14 04/03/19 08:55 Albuterol/ Ipratropium (Albuterol/ Ipratropium) 3 ml Q4HRT HHN 04/04/19 23:00 04/09/19 22:59 04/08/19 14:38 Atropine Sulfate (Atropine Opth Adriana) 1 drop THREE TIMES A DAY SL 04/08/19 09:00 05/07/19 20:59 04/08/19 12:27 Chlorhexidine Gluconate (Cesilia-Hex 2%) 1 applic DAILY@1999 TOPIC 03/12/19 20:00 04/11/19 19:59 04/07/19 20:02 Ferrous Sulfate (Feosol) 330 mg THREE TIMES A DAY GT 04/08/19 09:00 05/08/19 08:59 04/08/19 12:26 Folic Acid (Folate) 1 mg DAILY GT 04/08/19 09:00 05/08/19 08:59 04/08/19 08:15 Heparin Sodium (Porcine) (Heparin 5000 units/ml) 5,000 units EVERY 12 HOURS SUBQ 04/01/19 10:00 05/01/19 09:59 04/08/19 08:17 Hydralazine HCl (Apresoline) 25 mg Q6H PRN ORAL SBP above 150 04/06/19 02:45 2/5/20 02:44 04/06/19 11:15 Lansoprazole (Prevacid) 30 mg Q12HR GT 03/29/19 09:00 04/24/19 20:59 04/08/19 08:16 Levetiracetam (Keppra) 750 mg Q12HR GT 04/07/19 21:00 05/07/19 20:59 04/08/19 08:15 Ondansetron HCl (Zofran) 4 mg Q4H PRN IVP Nausea & Vomiting 03/18/19 18:15 04/17/19 18:14 03/21/19 08:27 Amaury Chan MD Apr 08, 2019 15:11
--- NOTE | 2019-04-08 15:22 | Surgery Progress Note ---
Surgery Progress Note Subjective Additional Comments dressings changed wound eschar fell off and good granulation tissue noted Objective Last 24 Hour Vital Signs Date Time Temp Pulse Resp B/P (MAP) Pulse Ox O2 Delivery O2 Flow Rate FiO2 04/08/19 14:48 74 21 100 T-Piece 5.0 28 73 21 100 04/08/19 13:41 100 T-Piece 5.0 28 04/08/19 13:00 84 24 154/74 (100) 100 04/08/19 12:00 T-piece 5.0 T-piece 5.0 04/08/19 12:00 83 21 123/47 (72) 99 04/08/19 12:00 79 04/08/19 12:00 5.0 28 04/08/19 11:00 81 22 114/48 (70) 100 04/08/19 10:52 81 22 100 T-Piece 5.0 28 82 22 100 04/08/19 10:00 73 22 119/57 (77) 100 04/08/19 09:00 97.8 73 23 107/47 (67) 100 04/08/19 08:00 74 22 107/47 (67) 100 04/08/19 08:00 78 04/08/19 08:00 T-piece 5.0 T-piece 5.0 04/08/19 08:00 5.0 28 04/08/19 07:21 99 T-Piece 5.0 28 04/08/19 07:20 74 22 100 T-Piece 5.0 28 111 22 99 04/08/19 07:00 76 22 109/48 (68) 100 04/08/19 06:00 77 21 112/50 (70) 100 04/08/19 05:00 73 21 113/48 (69) 100 04/08/19 04:00 T-piece 5.0 T-piece 5.0 04/08/19 04:00 5.0 28 04/08/19 04:00 83 04/08/19 04:00 98.2 83 21 109/58 (75) 100 04/08/19 03:30 85 22 99 T-Piece 5.0 28 79 24 99 04/08/19 03:00 80 24 110/48 (68) 100 04/08/19 02:00 79 24 108/48 (68) 100 04/08/19 01:01 99 T-Piece 5.0 28 04/08/19 01:00 86 24 111/53 (72) 100 04/08/19 00:00 5.0 28 04/08/19 00:00 T-piece 5.0 T-piece 5.0 04/08/19 00:00 98.8 97 24 110/52 (71) 100 04/08/19 00:00 97 04/07/19 23:09 101 26 99 T-Piece 5.0 28 85 25 99 04/07/19 23:00 87 24 113/52 (72) 100 04/07/19 22:00 89 24 104/42 (62) 99 04/07/19 21:00 90 23 114/52 (72) 100 04/07/19 20:00 T-piece 5.0 T-piece 5.0 04/07/19 20:00 5.0 28 04/07/19 20:00 98.6 84 23 102/46 (64) 100 04/07/19 20:00 86 04/07/19 19:16 100 23 99 T-Piece 5.0 28 98 20 98 04/07/19 19:16 99 T-Piece 5.0 28 04/07/19 19:00 84 23 91/46 (61) 97 04/07/19 18:00 84 25 133/57 (82) 100 04/07/19 17:00 82 21 95/45 (62) 100 04/07/19 16:00 98.5 78 22 129/54 (79) 99 04/07/19 16:00 T-piece 5.0 T-piece 5.0 04/07/19 16:00 75 04/07/19 16:00 5.0 28 04/07/19 15:54 77 22 100 T-Piece 5.0 28 75 21 99 I&O Intake and Output 04/07/19 04/08/19 19:00 07:00 Intake Total 1230 ml 1295 ml Output Total 600 ml 720 ml Balance 630 ml 575 ml Free Water 225 ml 225 ml Tube Feeding 780 ml 845 ml Other 225 ml 225 ml Output Urine Total 400 ml 510 ml Gastric Drainage Total 200 ml 210 ml Dressing: dry Wound: clean Cardiovascular: RSR Respiratory: clear Abdomen: soft, non-tender, present bowel sounds Extremities: no edema, no tenderness, no cyanosis Plan Problems: (1) Sacral decubitus ulcer Assessment & Plan: This is a 83-year-old female with multiple medical committees that is currently admitted for medical care and management and identified to have multiple wounds requiring care. On admission patient noted to have a resolved sacral decubitus ulcer. Has had prior care and is well-healed at this time. Will ensure it does not open up again. Patient has a right ischial decubitus ulcer that is resolved. Scar intact and well formed. Will monitor to ensure it does not open up again. Patient has a left ischial decubitus ulcer that can be identified to be stage IV with palpable bone that has been resolving as noted by the periwound tissue and scar but open area approximately 1 cm x 1.5 cm few millimeters deep to bone identified. Unsure if this is been to be completely healed prior and has since opened or if has been healing at this level. No foul odor no drainage was unsure local wound care until healed Bilateral heels soft without signs of injury Resolving pressure injury L ischium(L)1.8cm x (W)1cm.Scattered biofilm at base of wound. Edges flat and adherent with surrounding hyperpigmentation. No odor or exudate noted. Sacrum is pale pink with surrounding hyperpigmentation. Hyperpigmentation R ischium with small sheared area centrally.No areas of erythema or exudate noted. Both heels are soft but blanchable. Skin Assessed under collar of trach and no evidence of skin breakdown noted. All wound Tx. are effective and continued as ordered. Pt ahs an APM/Belén mattress overlay and is being repositioned per protocols and per tolerance.No new skin concerns noted. Full thickness pressure injury L Ischium with small amt biofilm (L)1.8cm x (W) 1cm. Surrounding pink hyperpigmentation. No odor or exudate noted. [place] hyperpigmentation from previous wound noted to sacrum. Pt also noted to have Cat 2 Skin Tear dorsal L hand, L 5th metatarsal extending into palm of hand. 80% skin flap in situ.Both heels are dry firm and blanchable. No other skin concerns noted. R ischial wound has resolved. [place] epithelial with surrounding hyperpigmentation. from historical wound. Full thickness pressure injury L ischium. [place] granulation at base of wound. Borders are macerated with Surrounding hyperpigmentation.Small amt non-odorous serous exudate noted.(L)0.7cm x (W)0.8cm. Skin hyperpigmentation from historical wound noted to Sacrum. Small sheared area noted to sacrococcygeal area.(L)0.4cm x (W)0.3cm.Small amt sanguineous exudate noted. Reabsorbed blister with semi-detached dry necrotic cap noted to web space of L thumb and L index fingers extending into palm of L hand. No odor or exudate noted. Skin assessed under tracheal collar and no erythema or evidence of Skin Breakdown noted. NO new skin concerns noted . Good hand hygiene provided to both hands. R hand contracted and fisted. Fingernails trimmed. Wound care provided along with Primary nurse. Wound Tx continued as ordered. New order obtained from to apply Betadine to wound L hand Daily. Tx done as ordered. L hand wrapped with kerlix weaving kerlix between fingers to separate fingers. Moisture Barrier applied to sacrum ,R ischium. Each site covered with Optifoam drsg. Both lower ext washed and moisturized. Cavilon Skin Barrier applied to both heels.Each heel covered with Optifoam drsgs. Pt positioned with pillows and both heels off-loaded with pillow. Tx.Plan: Apply Betadine to wound L hand. Cover with Gauze and wrap with Kerlix Daily and prn. Cleanse L ischial wound with Saline. Apply Therahoney. Apply Moisture Barrier periwound. Cover with Optifoam drsgevery 3 days and prn. Apply Moisture Barrier Paste to R ischium and Sacrum. Cover each area with Optifoam drsg. Change every 3 days and prn. Apply Cavilon Skin Barrier to both heels. Cover each heel with Optifoam drsg. Change every 7 days and prn. APM/BELNÉ Mattress overlay. Reposition at least every 2hours or as tolerated. Off-load heels with pillow. Cleanse Blister Dorsal and palm of L hand with saline. Versatel One Silicone Contact Layer(Applied). Apply Silvasorb Gel. Wrap with Kerlix Gauze.Change every 7 days and prn. Apply Moisture Barrier to sacrum. Cover with Optifoam drsg. Change every 3 days and prn. Cleanse L ischial wound with saline. Apply Therahoney. Apply Moisture Barrier Paste periwound. Cover with Optifoam drsg. Change every 3 days and prn. Apply Cavilon Skin Barrier to both heels. Cover each heel with Optifoam drsg. Change every 7 days and prn. APM/BELÉN Mattress overlay. Reposition at least every 2hours or as tolerated. Off-load heels with pillow. Nutritional optimization We will monitor follow with recommendations cont with above upon d/c (2) Sepsis Assessment & Plan: IV abx as per ID trend labs improving wounds unlikely etiology likely respiratory imaging noted and okay abnormal lft's stable PICC on Abx in ICU for desaturation CXR with consolidation cont with frequent suctioning d/c planning g j via GI daughter wants close attention to wounds and management to ensure healing Evidence of left lower lobe pneumonia, also previously demonstrated Gastrostomy in good position Mild diastasis of the rectus abdominis musculature again demonstrated Retrosacral decubitus changes, better depicted on prior exam which included the pelvis Small hiatal hernia with evidence of trace gastroesophageal reflux Discussed with GI. Recommend GJ family still pending decision transfuse prbc prn monitor h/h monitor bm LFTs improving trending down (3) Feeding by G-tube Assessment & Plan: DAILY ESTIMATED NEEDS: Needs based on Pulmonary, wounds, bedbound/ 61kg adj 25-30 kcals/kg 7868-8167 total kcals 1.25-2 g protein/kg 76-122 g total protein 25-30 mL/kg 2552-2088 total fluid mLs NUTRITION DIAGNOSIS: * Increased kcal/prot needs R/T wound healing as evidenced by BL buttocks and sacral wound photos, refer to eval. * Swallowing difficulty R/T respiratory status as evidenced by pt on T-collar, s/p G-J conversion CURRENT TF:Glucerna 1.5 @ 50ml/hr x 24 hrs ENTERAL NUTRITION RECOMMENDATIONS: Glucerna 1.5 @ 50ml/hr x 24 hrs to provide 1200ml, 1800 kcal, 99g pro, 911ml free H2O - Maintain at current rate as tolerated to meet 100% est needs - HOB over 30 degrees - INCREASE water flush of 170ml q 6 hrs ADDITIONAL RECOMMENDATIONS: 1) RE-calibrate bedscale wt: fluctuating daily wts (108#-136# last 6 days) 2) Wound healing: Add Cristian 1pkt BID w/ continued good TF tolerance. 3) Increase water flushes, monitor for signs of water deficits 4) Monitor BGs closely, need for NISS -> now w/ improved BGs 5) Monitor for continued good TF tolerance 6) Monitor K : elev K on 03/25, s/p Kdur BID, now dc'ed. (4) Chronic vegetative state Assessment & Plan: incontinence of urine and stool. can soil dressings. nurses doing great job with monitoring and changing prn (5) Leukocytosis Walter Madera Apr 08, 2019 15:22
[2019-04-08] MEDS ORDERED: Silver Nitrate Stick TOPIC ONE (15:30)
--- NOTE | 2019-04-08 15:51 | NUR ---
NURSE NOTES: Bed bath given.
--- NOTE | 2019-04-08 16:15 | General Progress Note ---
Assessment/Plan Problem List: (1) Seizure ICD Codes: R56.9 - Unspecified convulsions SNOMED: 38412106 (2) Anemia ICD Codes: D64.9 - Anemia, unspecified SNOMED: 674197416 Qualifiers: Qualified Codes: D64.9 - Anemia, unspecified (3) Sepsis ICD Codes: A41.9 - Sepsis, unspecified organism SNOMED: 10130422, 841350795 Qualifiers: Qualified Codes: A41.9 - Sepsis, unspecified organism (4) Respiratory failure with hypoxia ICD Codes: J96.91 - Respiratory failure, unspecified with hypoxia SNOMED: 58418861270166543 Qualifiers: Qualified Codes: J96.21 - Acute and chronic respiratory failure with hypoxia (5) HCAP (healthcare-associated pneumonia) ICD Codes: J18.9 - Pneumonia, unspecified organism SNOMED: 892769776, 957700174 (6) Sacral decubitus ulcer ICD Codes: L89.159 - Pressure ulcer of sacral region, unspecified stage SNOMED: 005068723 (7) HTN (hypertension) ICD Codes: I10 - Essential (primary) hypertension SNOMED: 96440546 (8) Chronic vegetative state ICD Codes: R40.3 - Persistent vegetative state SNOMED: 66122654 (9) Chronic respiratory failure ICD Codes: J96.10 - Chronic respiratory failure, unspecified whether with hypoxia or hypercapnia SNOMED: 50222571 (10) Limited mobility ICD Codes: Z74.09 - Other reduced mobility SNOMED: 4188007 Status: stable, progressing Assessment/Plan: vent as needed resp rx suctioning j tube feeds g port to [facility] skin care sz rx monitor lfts dc planning Subjective ROS Limited/Unobtainable: Yes Constitutional: Reports: malaise, weakness HEENT: Reports: no symptoms Cardiovascular: Reports: no symptoms Respiratory: Reports: cough, shortness of breath, sputum Gastrointestinal/Abdominal: Reports: difficulty swallowing Genitourinary: Reports: no symptoms Neurologic/Psychiatric: Reports: seizure Endocrine: Reports: no symptoms Hematologic/Lymphatic: Reports: no symptoms Allergies: Coded Allergies: CODEINE (Verified Allergy, Unknown, HIVES, 09/15/09) All Systems: reviewed and negative except above Subjective no events. no reports of bleeding. tolerating feeds, no vomiting. minimal secretions. no szs Objective Last 24 Hour Vital Signs Date Time Temp Pulse Resp B/P (MAP) Pulse Ox O2 Delivery O2 Flow Rate FiO2 04/08/19 16:00 T-piece 5.0 T-piece 5.0 04/08/19 16:00 5.0 28 04/08/19 14:48 74 21 100 T-Piece 5.0 28 73 21 100 04/08/19 13:41 100 T-Piece 5.0 28 04/08/19 13:00 84 24 154/74 (100) 100 04/08/19 12:00 T-piece 5.0 T-piece 5.0 04/08/19 12:00 83 21 123/47 (72) 99 04/08/19 12:00 79 04/08/19 12:00 5.0 28 04/08/19 11:00 81 22 114/48 (70) 100 04/08/19 10:52 81 22 100 T-Piece 5.0 28 82 22 100 04/08/19 10:00 73 22 119/57 (77) 100 04/08/19 09:00 97.8 73 23 107/47 (67) 100 04/08/19 08:00 74 22 107/47 (67) 100 04/08/19 08:00 78 04/08/19 08:00 T-piece 5.0 T-piece 5.0 04/08/19 08:00 5.0 28 04/08/19 07:21 99 T-Piece 5.0 28 04/08/19 07:20 74 22 100 T-Piece 5.0 28 111 22 99 04/08/19 07:00 76 22 109/48 (68) 100 04/08/19 06:00 77 21 112/50 (70) 100 04/08/19 05:00 73 21 113/48 (69) 100 04/08/19 04:00 T-piece 5.0 T-piece 5.0 04/08/19 04:00 5.0 28 04/08/19 04:00 83 04/08/19 04:00 98.2 83 21 109/58 (75) 100 04/08/19 03:30 85 22 99 T-Piece 5.0 28 79 24 99 04/08/19 03:00 80 24 110/48 (68) 100 04/08/19 02:00 79 24 108/48 (68) 100 04/08/19 01:01 99 T-Piece 5.0 28 04/08/19 01:00 86 24 111/53 (72) 100 04/08/19 00:00 5.0 28 04/08/19 00:00 T-piece 5.0 T-piece 5.0 04/08/19 00:00 98.8 97 24 110/52 (71) 100 04/08/19 00:00 97 04/07/19 23:09 101 26 99 T-Piece 5.0 28 85 25 99 04/07/19 23:00 87 24 113/52 (72) 100 04/07/19 22:00 89 24 104/42 (62) 99 04/07/19 21:00 90 23 114/52 (72) 100 04/07/19 20:00 T-piece 5.0 T-piece 5.0 04/07/19 20:00 5.0 28 04/07/19 20:00 98.6 84 23 102/46 (64) 100 04/07/19 20:00 86 04/07/19 19:16 100 23 99 T-Piece 5.0 28 98 20 98 04/07/19 19:16 99 T-Piece 5.0 28 04/07/19 19:00 84 23 91/46 (61) 97 04/07/19 18:00 84 25 133/57 (82) 100 04/07/19 17:00 82 21 95/45 (62) 100 Intake and Output 04/07/19 04/08/19 19:00 07:00 Intake Total 1230 ml 1295 ml Output Total 600 ml 720 ml Balance 630 ml 575 ml Free Water 225 ml 225 ml Tube Feeding 780 ml 845 ml Other 225 ml 225 ml Output Urine Total 400 ml 510 ml Gastric Drainage Total 200 ml 210 ml Height (Feet): 5 Height (Inches): 3.00 Weight (Pounds): 125 Objective General Appearance: WD/WN, confused. on trach collar Neck: supple Cardiovascular: normal rate, regular rhythm Respiratory/Chest: chest wall non-tender, rhonchi - bilaterally(minimal) Abdomen: normal bowel sounds, non tender, soft, no organomegaly Edema: no edema noted Arm (L), no edema noted Arm (R), no edema noted Leg (L), no edema noted Leg (R), no edema noted Pedal (L), no edema noted Pedal (R), no edema noted Generalized Neurologic: disoriented, unresponsive, aphasia Irvin Beltrán MD Apr 08, 2019 16:15
--- NOTE | 2019-04-08 17:20 | NUR ---
NURSE NOTES: Due med given and flushed GJ tube with 75ml water each ports.
--- NOTE | 2019-04-08 17:33 | NUR ---
NURSE NOTES:WOUND CARE FOLLOW-UP NOTES:Pt wounds are resolving. Loose necrotic cap within web space of L index finger and L thumb easily removed with gentle friction. Base of wound is hypergranular with 10% necrosis. Borders are macerated. Application of Silver Nitrate to hypergranular base done. Cavilon Skin Barrier applied to borders . Good hand hygiene provided. Wound covered with Abd pad. L hand wrapped with Kerlix weaving Kerlix between digitsof L hand. Pressure injury L ischium resolving. Base iof wound is pale pink and dry with surrounding hyperpigmentation and scar from previous wound. Hyperpigmentation with historical scars noted to Sacrum and R ischium. Both heels are soft and blanchable. Skin Assessed under trach collar and no evidence of skin breakdown noted. Tx.Plan: Cleanse wound L hand with Saline. Apply Therahoney. Cover with Folded ABD Pad and wrap with Kerlix every 3 days and prn. Apply Moisture Barrier Paste to Sacrum ,R and L ischium. Cover each site with Optifoam drsg. Change every 3 days and prn. Apply Cavilon Skin Barrier to both heels and Malleoli. Cover each site with Optifoam drsgs. Change every 7 days and prn. APM/LAURITA Mattress overlay. Reposition at least every 2hours or as tolerated. Off-load heels with Pillow.
--- NOTE | 2019-04-08 17:51 | Nephrology Progress Note ---
Assessment/Plan Problem List: (1) Acute renal failure (ARF) Assessment: Cr stable (2) Chronic respiratory failure (3) Anemia (4) Sepsis Assessment Acute renal failure Respiratory failure - Trach Low Mag- Low k , Low Na Anemia UTI / Sepsis Proteinuria / HypoAlbuminemia high Trigs Sz decubs bed bound DNR Plan Transfused now has JT bolus Albumin as needed K and Mag and Phos supplement as needed Hydrate as needed Urine studies avoid Nephrotoxics mag K Phos supplements as needed monitor renal parameters Subjective ROS Limited/Unobtainable: Yes Objective Objective Last 24 Hour Vital Signs Date Time Temp Pulse Resp B/P (MAP) Pulse Ox O2 Delivery O2 Flow Rate FiO2 04/08/19 16:00 T-piece 5.0 T-piece 5.0 04/08/19 16:00 98.2 79 18 112/42 (65) 100 04/08/19 16:00 72 04/08/19 16:00 5.0 28 04/08/19 15:00 78 20 114/43 (66) 100 04/08/19 14:48 74 21 100 T-Piece 5.0 28 73 21 100 04/08/19 14:00 78 20 126/48 (74) 100 04/08/19 13:41 100 T-Piece 5.0 28 04/08/19 13:00 84 24 154/74 (100) 100 04/08/19 12:00 T-piece 5.0 T-piece 5.0 04/08/19 12:00 83 21 123/47 (72) 99 04/08/19 12:00 79 04/08/19 12:00 5.0 28 04/08/19 11:00 81 22 114/48 (70) 100 04/08/19 10:52 81 22 100 T-Piece 5.0 28 82 22 100 04/08/19 10:00 73 22 119/57 (77) 100 04/08/19 09:00 97.8 73 23 107/47 (67) 100 04/08/19 08:00 74 22 107/47 (67) 100 04/08/19 08:00 78 04/08/19 08:00 T-piece 5.0 T-piece 5.0 04/08/19 08:00 5.0 28 04/08/19 07:21 99 T-Piece 5.0 28 04/08/19 07:20 74 22 100 T-Piece 5.0 28 111 22 99 04/08/19 07:00 76 22 109/48 (68) 100 04/08/19 06:00 77 21 112/50 (70) 100 04/08/19 05:00 73 21 113/48 (69) 100 04/08/19 04:00 T-piece 5.0 T-piece 5.0 04/08/19 04:00 5.0 28 04/08/19 04:00 83 04/08/19 04:00 98.2 83 21 109/58 (75) 100 04/08/19 03:30 85 22 99 T-Piece 5.0 28 79 24 99 04/08/19 03:00 80 24 110/48 (68) 100 04/08/19 02:00 79 24 108/48 (68) 100 04/08/19 01:01 99 T-Piece 5.0 28 04/08/19 01:00 86 24 111/53 (72) 100 04/08/19 00:00 5.0 28 04/08/19 00:00 T-piece 5.0 T-piece 5.0 04/08/19 00:00 98.8 97 24 110/52 (71) 100 04/08/19 00:00 97 04/07/19 23:09 101 26 99 T-Piece 5.0 28 85 25 99 04/07/19 23:00 87 24 113/52 (72) 100 04/07/19 22:00 89 24 104/42 (62) 99 04/07/19 21:00 90 23 114/52 (72) 100 04/07/19 20:00 T-piece 5.0 T-piece 5.0 04/07/19 20:00 5.0 28 04/07/19 20:00 98.6 84 23 102/46 (64) 100 04/07/19 20:00 86 04/07/19 19:16 100 23 99 T-Piece 5.0 28 98 20 98 04/07/19 19:16 99 T-Piece 5.0 28 04/07/19 19:00 84 23 91/46 (61) 97 04/07/19 18:00 84 25 133/57 (82) 100 Intake and Output 04/07/19 04/08/19 19:00 07:00 Intake Total 1230 ml 1295 ml Output Total 600 ml 720 ml Balance 630 ml 575 ml Free Water 225 ml 225 ml Tube Feeding 780 ml 845 ml Other 225 ml 225 ml Output Urine Total 400 ml 510 ml Gastric Drainage Total 200 ml 210 ml Height (Feet): 5 Height (Inches): 3.00 Weight (Pounds): 125 General Appearance: no apparent distress Objective no change Eric Cortez MD Apr 08, 2019 17:51
--- NOTE | 2019-04-08 18:20 | NUR ---
NURSE NOTES: Oral and trach suction given.
--- NOTE | 2019-04-08 19:30 | NUR ---
HAND-OFF: Report given to JEANNINE Elaine. Endorsed plan of care.
--- NOTE | 2019-04-08 19:30 | NUR ---
NURSE NOTES: Received patient from JEANNINE Ruiz. Will continue plan of care.
--- NOTE | 2019-04-08 20:00 | NUR ---
NURSE NOTES: Patient is obtunded. On T-piece Shiley 6 @ 28% O2 saturation at 100%. On G/J-tube feeding of Vital AF at 65ml/hr via J-tube. On purewick and suctioning well. Suctioning provided. Bed low, locked and alarm is on. Vital signs are stable, will continue plan of care.
[2019-04-08] MEDS: Dyna-Hex 2% Top Sol 2oz TOPIC SCH (20:22)
--- NOTE | 2019-04-08 20:46 | General Progress Note ---
Assessment/Plan Status: stable, progressing Assessment/Plan: Assessment - N/V - resolved with G --> J conversion - constipation - Elevated Alk phos / LFT - CT negative - abd U/S negative - check hepatitis serologies - negative - possibly MURRAY / Fatty liver - Anemia with OB (-) stools - Resp failure, s/p Trach - dysphagia, s/p PEG --> GJ tube - OBS, vegetative obtunded unresponsive state, bedbound with contracted extremities, - h/o minor GJ tube site irritation - Early J port occlusion, possibly due to thick diabetic TF formula - Elevated glucose - poor Prognosis Recommendations - laxative PRN - antibiotic ointment to GJT site PRN - aspiration precautions - elevate HOB - Vital AF 1.2 - check q 6 hour FS - transfuse to keep Hg > 7 - J tube feeds - G tube drain Subjective Allergies: Coded Allergies: CODEINE (Verified Allergy, Unknown, HIVES, 09/15/09) Subjective above noted tolerating TF via J port No BM x 2 days per I/O notes Objective Last 24 Hour Vital Signs Date Time Temp Pulse Resp B/P (MAP) Pulse Ox O2 Delivery O2 Flow Rate FiO2 04/08/19 20:00 98.2 81 20 107/43 (64) 100 04/08/19 20:00 T-piece 5.0 T-piece 5.0 04/08/19 20:00 5.0 28 04/08/19 19:53 100 T-Piece 5.0 28 04/08/19 19:52 105 22 100 T-Piece 5.0 28 88 20 100 04/08/19 19:00 86 22 129/49 (75) 100 04/08/19 18:00 78 26 95/40 (58) 99 04/08/19 17:00 77 19 104/39 (60) 100 04/08/19 16:00 T-piece 5.0 T-piece 5.0 04/08/19 16:00 98.2 79 18 112/42 (65) 100 04/08/19 16:00 72 04/08/19 16:00 5.0 28 04/08/19 15:00 78 20 114/43 (66) 100 04/08/19 14:48 74 21 100 T-Piece 5.0 28 73 21 100 04/08/19 14:00 78 20 126/48 (74) 100 04/08/19 13:41 100 T-Piece 5.0 28 04/08/19 13:00 84 24 154/74 (100) 100 04/08/19 12:00 T-piece 5.0 T-piece 5.0 04/08/19 12:00 83 21 123/47 (72) 99 04/08/19 12:00 79 04/08/19 12:00 5.0 28 04/08/19 11:00 81 22 114/48 (70) 100 04/08/19 10:52 81 22 100 T-Piece 5.0 28 82 22 100 04/08/19 10:00 73 22 119/57 (77) 100 04/08/19 09:00 97.8 73 23 107/47 (67) 100 04/08/19 08:00 74 22 107/47 (67) 100 04/08/19 08:00 78 04/08/19 08:00 T-piece 5.0 T-piece 5.0 04/08/19 08:00 5.0 28 04/08/19 07:21 99 T-Piece 5.0 28 04/08/19 07:20 74 22 100 T-Piece 5.0 28 111 22 99 04/08/19 07:00 76 22 109/48 (68) 100 04/08/19 06:00 77 21 112/50 (70) 100 04/08/19 05:00 73 21 113/48 (69) 100 04/08/19 04:00 T-piece 5.0 T-piece 5.0 04/08/19 04:00 5.0 28 04/08/19 04:00 83 04/08/19 04:00 98.2 83 21 109/58 (75) 100 04/08/19 03:30 85 22 99 T-Piece 5.0 28 79 24 99 04/08/19 03:00 80 24 110/48 (68) 100 04/08/19 02:00 79 24 108/48 (68) 100 04/08/19 01:01 99 T-Piece 5.0 28 04/08/19 01:00 86 24 111/53 (72) 100 04/08/19 00:00 5.0 28 04/08/19 00:00 T-piece 5.0 T-piece 5.0 04/08/19 00:00 98.8 97 24 110/52 (71) 100 04/08/19 00:00 97 04/07/19 23:09 101 26 99 T-Piece 5.0 28 85 25 99 04/07/19 23:00 87 24 113/52 (72) 100 04/07/19 22:00 89 24 104/42 (62) 99 04/07/19 21:00 90 23 114/52 (72) 100 Intake and Output 04/07/19 04/08/19 19:00 07:00 Intake Total 1230 ml 1295 ml Output Total 600 ml 720 ml Balance 630 ml 575 ml Free Water 225 ml 225 ml Tube Feeding 780 ml 845 ml Other 225 ml 225 ml Output Urine Total 400 ml 510 ml Gastric Drainage Total 200 ml 210 ml Height (Feet): 5 Height (Inches): 3.00 Weight (Pounds): 125 Objective Debilitated AA woman non-verbal, obtunded NCAT (+) trach coarse BS RR obese abd, (+) GJT no edema (+) contractured extremities Celio Vaughan MD Apr 08, 2019 20:46
[2019-04-08] MEDS ORDERED: Sorbitol Solution UD 30ml GT SCH (21:00)
--- NOTE | 2019-04-08 22:00 | NUR ---
NURSE NOTES: Patient is sleep and comfortable. Vital signs are stable. Turned and repositioned. Sorbital one time given via G-Tube. No BM since 04/05. Will continue plan of care.
[2019-04-09] VITALS (24 sets, daily range): BP systolic 96–145; BP diastolic 42–61
--- NOTE | 2019-04-09 | NUR ---
NURSE NOTES: No change in patient's condition. Vital signs stable. B/S:93. Turned and repositioned. Oral care and suctioning provided.
--- NOTE | 2019-04-09 02:00 | NUR ---
NURSE NOTES: No changes in patient's condition. Vital signs are stable. No BM at the moment. Will continue plan of care.
[2019-04-09] MEDS: Albuterol/Ipratropium 3ml neb HHN SCH ×5 (03:01→19:32)
--- NOTE | 2019-04-09 04:00 | NUR ---
NURSE NOTES: Patient is stable. No change in condition. Vital signs are stable. No BM at the moment. Will continue plan of care.
[2019-04-09 05:40] LABS: BASOPHILS % (AUTO) 0.8 % (0.0-2.0); EOSINOPHILS % (AUTO) 3.2 % (0.0-3.0); HEMATOCRIT 34.8 % (37.0-47.0); HEMOGLOBIN 11.3 G/DL (12.0-16.0); LYMPHOCYTES % (AUTO) 26.7 % (20.0-45.0); MEAN CORPUSCULAR VOLUME 91 FL (80-99); MONOCYTES % (AUTO) 5.9 % (1.0-10.0); NEUTROPHILS % (AUTO) 63.4 % (45.0-75.0); PLATELET COUNT 204 K/UL (150-450); RED BLOOD COUNT 3.83 M/UL (4.20-5.40); RED CELL DISTRIBUTION WIDTH 15.5 % (11.6-14.8); WHITE BLOOD COUNT 10.6 K/UL (4.8-10.8)
[2019-04-09 05:59] LABS: ALANINE AMINOTRANSFERASE 61 U/L (12-78); ALBUMIN 2.9 G/DL (3.4-5.0); ALBUMIN/GLOBULIN RATIO 0.6 (1.0-2.7); ALKALINE PHOSPHATASE 143 U/L (46-116); ANION GAP 9 mmol/L (5-15); ASPARTATE AMINO TRANSFERASE 27 U/L (15-37); BILIRUBIN,TOTAL 0.2 MG/DL (0.2-1.0); BLOOD UREA NITROGEN 53 mg/dL (7-18); CALCIUM 8.5 MG/DL (8.5-10.1); CARBON DIOXIDE 30 MMOL/L (21-32); CHLORIDE 103 MMOL/L (98-107); POTASSIUM 3.6 MMOL/L (3.5-5.1); SODIUM 142 MMOL/L (136-145)
--- NOTE | 2019-04-09 06:00 | NUR ---
NURSE NOTES: No change in patient's condition. No BM. Bed bath, linen change, wound dressing change, oral care, suctioning, G/J-tube flushes provided. Turned and repositioned. Bed low, locked and alarm is on. Vital signs stable. Will continue plan of care.
--- NOTE | 2019-04-09 07:20 | NUR ---
HAND-OFF: Report given to JEANNINE Miller.
--- NOTE | 2019-04-09 07:30 | NUR ---
NURSE NOTES: LATE ENTRY: RECEIVED REPOT FROM Rachel MARSH PT OPENS EYES TO SHAKING. ABNORMAL FLEXION TO PAIN ON NAIL BED, CONTRACTED UPPER EXTREMITIES. FOOT DROP BILATERAL. IMPAIRED SENSORY RESPONSE TO STIMULI. BILATERAL PUPILS 3MM SLUGGISH. BLINK REFLEX INTACT. STRENGTH UPPER AND LOWER 0/5. TRACH DEPENDENT SHILEY 6. T-PIECE 28%, 5L. VS: HR 78, BP 96/42, SP02 100, RR 22. ORAL SECRETIONS WHITE WITH YELLOW HUE AND FROTHY. TRACHEA CENTERED. LUNG SOUNDS UPPER LOBES RHONCHI, LOWER LOBES DIMINISHED. ABDOMEN ROUND, SOFT, NON TENDER. BOWEL SOUNDS HYPOACTIVE ALL QUADRANTS. NO BM AT THIS TIME. G-TUBE TO GRAVITY DRAINAGE AND J-TUBE RUNNING VITAL A.F 1.2 RUNNING AT 65ML/HR. FLUSH 75ML VIA EACH PORT. PUREWICK DRAINING LIGHT MOY URINE. BLADDER FLAT. CAP REFILL <3SEC, SKIN -SEE ASSESSMENT. COOL TO TOUCH AND MOIST. AX TEMP 99.5. BILATERAL RADIAL PULSES BOUNDING AND PEDAL PULSES WEAK. PICC JOSY RUNNING TKO. CONTACT AND SZ PRECAUTIONS IN PLACE. BED LOCKED, IN LOWEST POSITION, SIDE RAILS X3. BED ALARM ON. WILL CONTINUE TO IMPLEMENT PLAN OF CARE.
--- NOTE | 2019-04-09 08:47 | Pulmonology Progress Note ---
Assessment/Plan Assessment/Plan Impression: history of Sepsis history of Pneumonia Trach, G tube, Hypertension, Cardiac disease, Dementia, Previous CVA, Seizure disorder, Respiratory failure with hypoxia Anemia, Sacral ulcer renal cyst chronic pulmonary congestion Plan RT care as is; discussed off vent and monitor as is oxygen as needed aspiration precautions to continue elevate head and monitor secretions DNR. No CPR. ICU care reviewed all changes noted and discussed hope to transfer to [facility] if family agrees medications/laboratory data/nursing notes/ICU care reviewed in detail note reviewed and edited care discussed with RN and RT Subjective ROS Limited/Unobtainable: Yes Allergies: Coded Allergies: CODEINE (Verified Allergy, Unknown, HIVES, 09/15/09) Subjective respiratory care and RT care noted events noted overnight ICU care issues discussed bed bound and obtunded findings reviewed Objective Last 24 Hour Vital Signs Date Time Temp Pulse Resp B/P (MAP) Pulse Ox O2 Delivery O2 Flow Rate FiO2 04/09/19 07:12 74 16 100 T-Piece 5.0 28 04/09/19 07:12 79 22 100 T-Piece 5.0 28 74 16 100 04/09/19 07:12 100 T-Piece 5.0 28 04/09/19 07:00 76 22 98/48 (65) 99 04/09/19 06:00 74 19 115/53 (73) 100 04/09/19 05:00 75 16 106/48 (67) 100 04/09/19 04:00 98.1 74 23 106/48 (67) 98 04/09/19 04:00 T-piece 5.0 T-piece 5.0 04/09/19 04:00 5.0 28 04/09/19 03:13 76 04/09/19 03:11 79 22 100 T-Piece 5.0 28 77 22 99 04/09/19 03:00 76 22 110/48 (68) 99 04/09/19 02:00 78 23 125/59 (81) 98 04/09/19 01:32 100 T-Piece 5.0 28 04/09/19 01:00 78 20 118/49 (72) 98 04/09/19 00:00 98.4 79 23 145/61 (89) 100 04/09/19 00:00 T-piece 5.0 T-piece 5.0 04/08/19 23:43 76 16 100 T-Piece 5.0 28 83 18 100 04/08/19 23:04 100 04/08/19 23:00 77 21 103/47 (65) 100 04/08/19 22:00 81 20 94/40 (58) 97 04/08/19 21:00 81 20 107/50 (69) 100 04/08/19 20:00 98.2 81 20 107/43 (64) 100 04/08/19 20:00 T-piece 5.0 T-piece 5.0 04/08/19 20:00 5.0 28 04/08/19 19:53 100 T-Piece 5.0 28 04/08/19 19:52 105 22 100 T-Piece 5.0 28 88 20 100 04/08/19 19:27 80 04/08/19 19:00 86 22 129/49 (75) 100 04/08/19 18:00 78 26 95/40 (58) 99 04/08/19 17:00 77 19 104/39 (60) 100 04/08/19 16:00 T-piece 5.0 T-piece 5.0 04/08/19 16:00 98.2 79 18 112/42 (65) 100 04/08/19 16:00 72 04/08/19 16:00 5.0 28 04/08/19 15:00 78 20 114/43 (66) 100 04/08/19 14:48 74 21 100 T-Piece 5.0 28 73 21 100 04/08/19 14:00 78 20 126/48 (74) 100 04/08/19 13:41 100 T-Piece 5.0 28 04/08/19 13:00 84 24 154/74 (100) 100 04/08/19 12:00 T-piece 5.0 T-piece 5.0 04/08/19 12:00 83 21 123/47 (72) 99 04/08/19 12:00 79 04/08/19 12:00 5.0 28 04/08/19 11:00 81 22 114/48 (70) 100 04/08/19 10:52 81 22 100 T-Piece 5.0 28 82 22 100 04/08/19 10:00 73 22 119/57 (77) 100 04/08/19 09:00 97.8 73 23 107/47 (67) 100 Intake and Output 04/08/19 04/09/19 19:00 07:00 Intake Total 1230 ml 1005 ml Output Total 880 ml 1025 ml Balance 350 ml -20 ml Free Water 225 ml 225 ml Tube Feeding 780 ml 780 ml Other 225 ml Output Urine Total 580 ml 550 ml Gastric Drainage Total 300 ml 475 ml Objective WDWN NAD contracted off vent reduced breath sounds bilaterally without rhonchi or wheeze [id number] without MRG NABS nontender no HSM no CC trace edema same nonfocal nonverbal trach and gt reviewed and edited Laboratory Tests 04/09/19 04:00: White Blood Count 10.6, Red Blood Count 3.83L, Hemoglobin 11.3L, Hematocrit 34.8L, Mean Corpuscular Volume 91, Mean Corpuscular Hemoglobin 29.5, Mean Corpuscular Hemoglobin Concent 32.5, Red Cell Distribution Width 15.5H, Platelet Count 204, Mean Platelet Volume 5.8L, Neutrophils (%) (Auto) 63.4, Lymphocytes (%) (Auto) 26.7, Monocytes (%) (Auto) 5.9, Eosinophils (%) (Auto) 3.2H, Basophils (%) (Auto) 0.8, Sodium Level 142, Potassium Level 3.6, Chloride Level 103, Carbon Dioxide Level 30, Anion Gap 9, Blood Urea Nitrogen 53H, Creatinine 1.0, Estimat Glomerular Filtration Rate , Glucose Level 127H, Calcium Level 8.5, Total Bilirubin 0.2, Aspartate Amino Transf (AST/SGOT) 27, Alanine Aminotransferase (ALT/SGPT) 61, Alkaline Phosphatase 143H, Total Protein 8.1, Albumin 2.9L, Globulin 5.2, Albumin/Globulin Ratio 0.6L Current Medications Medications (Trade) Dose Ordered Sig/Maicol Route PRN Reason Start Time Stop Time Status Last Admin Dose Admin Acetaminophen (Tylenol) 650 mg Q6H PRN GT Mild Pain/Temp > 100.5 03/23/19 15:15 04/22/19 15:14 04/03/19 08:55 Albuterol/ Ipratropium (Albuterol/ Ipratropium) 3 ml Q4HRT HHN 04/04/19 23:00 04/09/19 22:59 04/09/19 07:12 Atropine Sulfate (Atropine Opth Adriana) 1 drop THREE TIMES A DAY SL 04/08/19 09:00 05/07/19 20:59 04/08/19 17:28 Chlorhexidine Gluconate (Cesilia-Hex 2%) 1 applic DAILY@1999 TOPIC 03/12/19 20:00 04/11/19 19:59 04/08/19 20:22 Ferrous Sulfate (Feosol) 330 mg THREE TIMES A DAY GT 04/08/19 09:00 05/08/19 08:59 04/08/19 17:28 Folic Acid (Folate) 1 mg DAILY GT 04/08/19 09:00 05/08/19 08:59 04/08/19 08:15 Heparin Sodium (Porcine) (Heparin 5000 units/ml) 5,000 units EVERY 12 HOURS SUBQ 04/01/19 10:00 05/01/19 09:59 04/08/19 20:23 Hydralazine HCl (Apresoline) 25 mg Q6H PRN ORAL SBP above 150 04/06/19 02:45 05/06/19 02:44 04/06/19 11:15 Lansoprazole (Prevacid) 30 mg Q12HR GT 03/29/19 09:00 04/24/19 20:59 04/08/19 20:22 Levetiracetam (Keppra) 750 mg Q12HR GT 04/07/19 21:00 05/07/19 20:59 04/08/19 20:22 Ondansetron HCl (Zofran) 4 mg Q4H PRN IVP Nausea & Vomiting 03/18/19 18:15 04/17/19 18:14 03/21/19 08:27 Amaury Chan MD Apr 09, 2019 08:47
[2019-04-09] MEDS: Ferrous Sulfate 300 MG/5 ML UDC GT SCH ×3 (08:56→18:16)
[2019-04-09] MEDS: Heparin 5000 units/ml inj SUBQ SCH ×2 (09:01→21:09)
--- NOTE | 2019-04-09 10:00 | Nephrology Progress Note ---
Assessment/Plan Problem List: (1) Acute renal failure (ARF) Assessment: Cr stable (2) Chronic respiratory failure (3) Anemia (4) Sepsis Assessment Acute renal failure Respiratory failure - Trach Low Mag- Low k , Low Na Anemia UTI / Sepsis Proteinuria / HypoAlbuminemia high Trigs Sz decubs bed bound DNR Plan Transfused previously now has JT bolus Albumin as needed K and Mag and Phos supplement as needed Hydrate as needed Urine studies avoid Nephrotoxics mag K Phos supplements as needed monitor renal parameters Subjective ROS Limited/Unobtainable: Yes Objective Objective Last 24 Hour Vital Signs Date Time Temp Pulse Resp B/P (MAP) Pulse Ox O2 Delivery O2 Flow Rate FiO2 04/09/19 09:00 78 22 111/44 (66) 100 04/09/19 08:00 T-piece 5.0 T-piece 5.0 04/09/19 08:00 5.0 28 04/09/19 08:00 98.7 79 23 96/42 (60) 99 04/09/19 07:12 74 16 100 T-Piece 5.0 28 04/09/19 07:12 79 22 100 T-Piece 5.0 28 74 16 100 04/09/19 07:12 100 T-Piece 5.0 28 04/09/19 07:00 76 22 98/48 (65) 99 04/09/19 06:00 74 19 115/53 (73) 100 04/09/19 05:00 75 16 106/48 (67) 100 04/09/19 04:00 98.1 74 23 106/48 (67) 98 04/09/19 04:00 T-piece 5.0 T-piece 5.0 04/09/19 04:00 5.0 28 04/09/19 03:13 76 04/09/19 03:11 79 22 100 T-Piece 5.0 28 77 22 99 04/09/19 03:00 76 22 110/48 (68) 99 04/09/19 02:00 78 23 125/59 (81) 98 04/09/19 01:32 100 T-Piece 5.0 28 04/09/19 01:00 78 20 118/49 (72) 98 04/09/19 00:00 98.4 79 23 145/61 (89) 100 04/09/19 00:00 T-piece 5.0 T-piece 5.0 04/08/19 23:43 76 16 100 T-Piece 5.0 28 83 18 100 04/08/19 23:04 100 04/08/19 23:00 77 21 103/47 (65) 100 04/08/19 22:00 81 20 94/40 (58) 97 04/08/19 21:00 81 20 107/50 (69) 100 04/08/19 20:00 98.2 81 20 107/43 (64) 100 04/08/19 20:00 T-piece 5.0 T-piece 5.0 04/08/19 20:00 5.0 28 04/08/19 19:53 100 T-Piece 5.0 28 04/08/19 19:52 105 22 100 T-Piece 5.0 28 88 20 100 04/08/19 19:27 80 04/08/19 19:00 86 22 129/49 (75) 100 04/08/19 18:00 78 26 95/40 (58) 99 04/08/19 17:00 77 19 104/39 (60) 100 04/08/19 16:00 T-piece 5.0 T-piece 5.0 04/08/19 16:00 98.2 79 18 112/42 (65) 100 04/08/19 16:00 72 04/08/19 16:00 5.0 28 04/08/19 15:00 78 20 114/43 (66) 100 04/08/19 14:48 74 21 100 T-Piece 5.0 28 73 21 100 04/08/19 14:00 78 20 126/48 (74) 100 04/08/19 13:41 100 T-Piece 5.0 28 04/08/19 13:00 84 24 154/74 (100) 100 04/08/19 12:00 T-piece 5.0 T-piece 5.0 04/08/19 12:00 83 21 123/47 (72) 99 04/08/19 12:00 79 04/08/19 12:00 5.0 28 04/08/19 11:00 81 22 114/48 (70) 100 04/08/19 10:52 81 22 100 T-Piece 5.0 28 82 22 100 04/08/19 10:00 73 22 119/57 (77) 100 Intake and Output 04/08/19 04/09/19 19:00 07:00 Intake Total 1230 ml 1005 ml Output Total 880 ml 1025 ml Balance 350 ml -20 ml Free Water 225 ml 225 ml Tube Feeding 780 ml 780 ml Other 225 ml Output Urine Total 580 ml 550 ml Gastric Drainage Total 300 ml 475 ml Laboratory Tests 04/09/19 04:00: White Blood Count 10.6, Red Blood Count 3.83L, Hemoglobin 11.3L, Hematocrit 34.8L, Mean Corpuscular Volume 91, Mean Corpuscular Hemoglobin 29.5, Mean Corpuscular Hemoglobin Concent 32.5, Red Cell Distribution Width 15.5H, Platelet Count 204, Mean Platelet Volume 5.8L, Neutrophils (%) (Auto) 63.4, Lymphocytes (%) (Auto) 26.7, Monocytes (%) (Auto) 5.9, Eosinophils (%) (Auto) 3.2H, Basophils (%) (Auto) 0.8, Sodium Level 142, Potassium Level 3.6, Chloride Level 103, Carbon Dioxide Level 30, Anion Gap 9, Blood Urea Nitrogen 53H, Creatinine 1.0, Estimat Glomerular Filtration Rate , Glucose Level 127H, Calcium Level 8.5, Total Bilirubin 0.2, Aspartate Amino Transf (AST/SGOT) 27, Alanine Aminotransferase (ALT/SGPT) 61, Alkaline Phosphatase 143H, Total Protein 8.1, Albumin 2.9L, Globulin 5.2, Albumin/Globulin Ratio 0.6L Height (Feet): 5 Height (Inches): 3.00 Weight (Pounds): 125 General Appearance: no apparent distress Cardiovascular: normal rate Respiratory/Chest: lungs clear, decreased breath sounds Abdomen: soft, distended Objective no change Eric Cortez MD Apr 09, 2019 10:00
--- NOTE | 2019-04-09 11:02 | Infectious Diseases Prog Note ---
Assessment/Plan Assessment/Plan A 1. Providencia & Klebsiella pneumonia treated 2. respiratory failure 3. hypertension 4. CVA 5. dementia 6. sacral decubitus ulcer 7. rectal VRE colonization 8. Anemia 9. Proteus UTI 10. Acute renal failure 11. Leukocytosis resolved P 1.Observe off antibiotic 2. Frequent suctioning 3. Remove PICC line before discharge Subjective ROS Limited/Unobtainable: Yes Constitutional: Denies: fever Allergies: Coded Allergies: CODEINE (Verified Allergy, Unknown, HIVES, 09/15/09) Objective Vital Signs Last 24 Hour Vital Signs Date Time Temp Pulse Resp B/P (MAP) Pulse Ox O2 Delivery O2 Flow Rate FiO2 04/09/19 10:59 84 21 100 T-Piece 5.0 28 86 22 100 04/09/19 10:00 78 26 116/47 (70) 100 04/09/19 10:00 75 22 116/47 (70) 100 04/09/19 09:00 78 22 111/44 (66) 100 04/09/19 08:00 79 04/09/19 08:00 T-piece 5.0 T-piece 5.0 04/09/19 08:00 77 04/09/19 08:00 5.0 28 04/09/19 08:00 98.7 79 23 96/42 (60) 99 04/09/19 07:12 74 16 100 T-Piece 5.0 28 04/09/19 07:12 79 22 100 T-Piece 5.0 28 74 16 100 04/09/19 07:12 100 T-Piece 5.0 28 04/09/19 07:00 76 22 98/48 (65) 99 04/09/19 06:00 74 19 115/53 (73) 100 04/09/19 05:00 75 16 106/48 (67) 100 04/09/19 04:00 98.1 74 23 106/48 (67) 98 04/09/19 04:00 T-piece 5.0 T-piece 5.0 04/09/19 04:00 5.0 28 04/09/19 03:13 76 04/09/19 03:11 79 22 100 T-Piece 5.0 28 77 22 99 04/09/19 03:00 76 22 110/48 (68) 99 04/09/19 02:00 78 23 125/59 (81) 98 04/09/19 01:32 100 T-Piece 5.0 28 04/09/19 01:00 78 20 118/49 (72) 98 04/09/19 00:00 98.4 79 23 145/61 (89) 100 04/09/19 00:00 T-piece 5.0 T-piece 5.0 04/08/19 23:43 76 16 100 T-Piece 5.0 28 83 18 100 04/08/19 23:04 100 04/08/19 23:00 77 21 103/47 (65) 100 04/08/19 22:00 81 20 94/40 (58) 97 04/08/19 21:00 81 20 107/50 (69) 100 04/08/19 20:00 98.2 81 20 107/43 (64) 100 04/08/19 20:00 T-piece 5.0 T-piece 5.0 04/08/19 20:00 5.0 28 04/08/19 19:53 100 T-Piece 5.0 28 04/08/19 19:52 105 22 100 T-Piece 5.0 28 88 20 100 04/08/19 19:27 80 04/08/19 19:00 86 22 129/49 (75) 100 04/08/19 18:00 78 26 95/40 (58) 99 04/08/19 17:00 77 19 104/39 (60) 100 04/08/19 16:00 T-piece 5.0 T-piece 5.0 04/08/19 16:00 98.2 79 18 112/42 (65) 100 04/08/19 16:00 72 04/08/19 16:00 5.0 28 04/08/19 15:00 78 20 114/43 (66) 100 04/08/19 14:48 74 21 100 T-Piece 5.0 28 73 21 100 04/08/19 14:00 78 20 126/48 (74) 100 04/08/19 13:41 100 T-Piece 5.0 28 04/08/19 13:00 84 24 154/74 (100) 100 04/08/19 12:00 T-piece 5.0 T-piece 5.0 04/08/19 12:00 83 21 123/47 (72) 99 04/08/19 12:00 79 1/8/20 12:00 5.0 28 Height (Feet): 5 Height (Inches): 3.00 Weight (Pounds): 125 HEENT: status post trach Respiratory/Chest: lungs clear, other - on T bar Cardiovascular: normal rate, other - PICC line Abdomen: soft, non tender, other - GJ tube Extremities: no edema Neurologic/Psychiatric: unresponsiveness, aphasia Laboratory Tests Test 04/09/19 04:00 White Blood Count 10.6 K/UL (4.8-10.8) Red Blood Count 3.83 M/UL (4.20-5.40) L Hemoglobin 11.3 G/DL (12.0-16.0) L Hematocrit 34.8 % (37.0-47.0) L Mean Corpuscular Volume 91 FL (80-99) Mean Corpuscular Hemoglobin 29.5 PG (27.0-31.0) Mean Corpuscular Hemoglobin Concent 32.5 G/DL (32.0-36.0) Red Cell Distribution Width 15.5 % (11.6-14.8) H Platelet Count 204 K/UL (150-450) Mean Platelet Volume 5.8 FL (6.5-10.1) L Neutrophils (%) (Auto) 63.4 % (45.0-75.0) Lymphocytes (%) (Auto) 26.7 % (20.0-45.0) Monocytes (%) (Auto) 5.9 % (1.0-10.0) Eosinophils (%) (Auto) 3.2 % (0.0-3.0) H Basophils (%) (Auto) 0.8 % (0.0-2.0) Sodium Level 142 MMOL/L (136-145) Potassium Level 3.6 MMOL/L (3.5-5.1) Chloride Level 103 MMOL/L (98-107) Carbon Dioxide Level 30 MMOL/L (21-32) Anion Gap 9 mmol/L (5-15) Blood Urea Nitrogen 53 mg/dL (7-18) H Creatinine 1.0 MG/DL (0.55-1.30) Estimat Glomerular Filtration Rate mL/min (>60) Glucose Level 127 MG/DL (74-106) H Calcium Level 8.5 MG/DL (8.5-10.1) Total Bilirubin 0.2 MG/DL (0.2-1.0) Aspartate Amino Transf (AST/SGOT) 27 U/L (15-37) Alanine Aminotransferase (ALT/SGPT) 61 U/L (12-78) Alkaline Phosphatase 143 U/L (46-116) H Total Protein 8.1 G/DL (6.4-8.2) Albumin 2.9 G/DL (3.4-5.0) L Globulin 5.2 g/dL Albumin/Globulin Ratio 0.6 (1.0-2.7) L Current Medications Medications (Trade) Dose Ordered Sig/Maicol Route PRN Reason Start Time Stop Time Status Last Admin Dose Admin Acetaminophen (Tylenol) 650 mg Q6H PRN GT Mild Pain/Temp > 100.5 03/23/19 15:15 04/22/19 15:14 04/03/19 08:55 Albuterol/ Ipratropium (Albuterol/ Ipratropium) 3 ml Q4HRT HHN 04/04/19 23:00 04/09/19 22:59 04/09/19 10:59 Atropine Sulfate (Atropine Opth Adriana) 1 drop THREE TIMES A DAY SL 04/08/19 09:00 05/07/19 20:59 04/09/19 09:38 Chlorhexidine Gluconate (Cesilia-Hex 2%) 1 applic DAILY@1999 TOPIC 03/12/19 20:00 04/11/19 19:59 04/08/19 20:22 Ferrous Sulfate (Feosol) 330 mg THREE TIMES A DAY GT 04/08/19 09:00 05/08/19 08:59 04/09/19 08:56 Folic Acid (Folate) 1 mg DAILY GT 04/08/19 09:00 05/08/19 08:59 04/09/19 08:56 Heparin Sodium (Porcine) (Heparin 5000 units/ml) 5,000 units EVERY 12 HOURS SUBQ 04/01/19 10:00 05/01/19 09:59 04/09/19 09:01 Hydralazine HCl (Apresoline) 25 mg Q6H PRN ORAL SBP above 150 04/06/19 02:45 05/06/19 02:44 04/06/19 11:15 Lansoprazole (Prevacid) 30 mg Q12HR GT 03/29/19 09:00 04/24/19 20:59 04/09/19 08:56 Levetiracetam (Keppra) 750 mg Q12HR GT 04/07/19 21:00 05/07/19 20:59 04/09/19 08:57 Ondansetron HCl (Zofran) 4 mg Q4H PRN IVP Nausea & Vomiting 03/18/19 18:15 04/17/19 18:14 03/21/19 08:27 Chauncey Liriano MD Apr 09, 2019 11:02
[2019-04-09] MEDS ORDERED: Tubing IV Secondary IV ONE (11:56)
[2019-04-09] MEDS ORDERED: NS 275ml ONE (11:56)
--- NOTE | 2019-04-09 12:16 | NUR ---
NURSE NOTES: pt resting in bed. vs hr 79, bp 112/43, rr 22 02sat 100%. secretions frothy. accuchk 118. pt repositioned, oral care and suction provided ax temp 98.8. pt on p 200 matress and pillows elevated extremities. hobn >30.
--- NOTE | 2019-04-09 14:38 | NUR ---
[employer] F[employer] SI: RESP FAILURE TRACH/COOL AEROSOL T. 98.8 HR 80 RR 25 B/P 130/49 BUN 53 TRACH/ 35% FIO2 IS: FOLATE HEPARIN SUBC PREVACID GT ICU STATUS
--- NOTE | 2019-04-09 16:00 | NUR ---
NURSE NOTES: NURSE NOTES: pt resting in bed. vss 02sat 100%. secretions frothy. accuchk 118. pt repositioned, oral care and suction provided ax temp 98.8. pt on p 200 mattress and pillows elevated extremities. hob>30. no bm at this time. bed locked, in low position. contact precautions in place.
--- NOTE | 2019-04-09 17:30 | General Progress Note ---
Assessment/Plan Problem List: (1) Seizure ICD Codes: R56.9 - Unspecified convulsions SNOMED: 13338852 (2) Anemia ICD Codes: D64.9 - Anemia, unspecified SNOMED: 830392763 Qualifiers: Qualified Codes: D64.9 - Anemia, unspecified (3) Sepsis ICD Codes: A41.9 - Sepsis, unspecified organism SNOMED: 25514939, 360257658 Qualifiers: Qualified Codes: A41.9 - Sepsis, unspecified organism (4) Respiratory failure with hypoxia ICD Codes: J96.91 - Respiratory failure, unspecified with hypoxia SNOMED: 22223435818151755 Qualifiers: Qualified Codes: J96.21 - Acute and chronic respiratory failure with hypoxia (5) HCAP (healthcare-associated pneumonia) ICD Codes: J18.9 - Pneumonia, unspecified organism SNOMED: 898380780, 023325578 (6) Sacral decubitus ulcer ICD Codes: L89.159 - Pressure ulcer of sacral region, unspecified stage SNOMED: 674549356 (7) HTN (hypertension) ICD Codes: I10 - Essential (primary) hypertension SNOMED: 63587474 (8) Chronic vegetative state ICD Codes: R40.3 - Persistent vegetative state SNOMED: 37237347 (9) Chronic respiratory failure ICD Codes: J96.10 - Chronic respiratory failure, unspecified whether with hypoxia or hypercapnia SNOMED: 63944951 (10) Limited mobility ICD Codes: Z74.09 - Other reduced mobility SNOMED: 5049008 Status: stable, progressing Assessment/Plan: vent as needed resp rx suctioning j tube feeds g port to gravity skin care sz rx monitor lfts dc planning Subjective ROS Limited/Unobtainable: No Constitutional: Reports: malaise, weakness HEENT: Reports: no symptoms Cardiovascular: Reports: no symptoms Respiratory: Reports: cough, shortness of breath Gastrointestinal/Abdominal: Reports: abdominal pain, difficulty swallowing Genitourinary: Reports: no symptoms Neurologic/Psychiatric: Reports: pre-existing deficit, seizure Endocrine: Reports: no symptoms Hematologic/Lymphatic: Reports: anemia Allergies: Coded Allergies: CODEINE (Verified Allergy, Unknown, HIVES, 09/15/09) All Systems: reviewed and negative except above Subjective no events. no reports of bleeding. tolerating feeds, no vomiting. minimal secretions. no szs Objective Last 24 Hour Vital Signs Date Time Temp Pulse Resp B/P (MAP) Pulse Ox O2 Delivery O2 Flow Rate FiO2 04/09/19 15:00 85 22 112/45 (67) 100 04/09/19 14:00 93 25 115/51 (72) 100 04/09/19 13:00 82 23 130/49 (76) 98 04/09/19 12:30 99 T-Piece 5.0 28 04/09/19 12:00 5.0 28 04/09/19 12:00 T-piece 5.0 T-piece 5.0 04/09/19 12:00 98.8 80 23 112/43 (66) 100 04/09/19 12:00 80 04/09/19 11:00 81 22 121/53 (75) 100 04/09/19 10:59 84 21 100 T-Piece 5.0 28 86 22 100 04/09/19 10:00 78 26 116/47 (70) 100 04/09/19 10:00 75 22 116/47 (70) 100 04/09/19 09:00 78 22 111/44 (66) 100 04/09/19 08:00 79 04/09/19 08:00 T-piece 5.0 T-piece 5.0 04/09/19 08:00 77 04/09/19 08:00 5.0 28 04/09/19 08:00 98.7 79 23 96/42 (60) 99 04/09/19 07:12 74 16 100 T-Piece 5.0 28 04/09/19 07:12 79 22 100 T-Piece 5.0 28 74 16 100 04/09/19 07:12 100 T-Piece 5.0 28 04/09/19 07:00 76 22 98/48 (65) 99 04/09/19 06:00 74 19 115/53 (73) 100 04/09/19 05:00 75 16 106/48 (67) 100 04/09/19 04:00 98.1 74 23 106/48 (67) 98 04/09/19 04:00 T-piece 5.0 T-piece 5.0 04/09/19 04:00 5.0 28 04/09/19 03:13 76 04/09/19 03:11 79 22 100 T-Piece 5.0 28 77 22 99 04/09/19 03:00 76 22 110/48 (68) 99 04/09/19 02:00 78 23 125/59 (81) 98 04/09/19 01:32 100 T-Piece 5.0 28 04/09/19 01:00 78 20 118/49 (72) 98 04/09/19 00:00 98.4 79 23 145/61 (89) 100 04/09/19 00:00 T-piece 5.0 T-piece 5.0 04/08/19 23:43 76 16 100 T-Piece 5.0 28 83 18 100 04/08/19 23:04 100 04/08/19 23:00 77 21 103/47 (65) 100 04/08/19 22:00 81 20 94/40 (58) 97 04/08/19 21:00 81 20 107/50 (69) 100 04/08/19 20:00 98.2 81 20 107/43 (64) 100 04/08/19 20:00 T-piece 5.0 T-piece 5.0 04/08/19 20:00 5.0 28 04/08/19 19:53 100 T-Piece 5.0 28 04/08/19 19:52 105 22 100 T-Piece 5.0 28 88 20 100 04/08/19 19:27 80 04/08/19 19:00 86 22 129/49 (75) 100 04/08/19 18:00 78 26 95/40 (58) 99 Intake and Output 04/08/19 04/09/19 19:00 07:00 Intake Total 1230 ml 1005 ml Output Total 880 ml 1025 ml Balance 350 ml -20 ml Free Water 225 ml 225 ml Tube Feeding 780 ml 780 ml Other 225 ml Output Urine Total 580 ml 550 ml Gastric Drainage Total 300 ml 475 ml Laboratory Tests 04/09/19 04:00: White Blood Count 10.6, Red Blood Count 3.83L, Hemoglobin 11.3L, Hematocrit 34.8L, Mean Corpuscular Volume 91, Mean Corpuscular Hemoglobin 29.5, Mean Corpuscular Hemoglobin Concent 32.5, Red Cell Distribution Width 15.5H, Platelet Count 204, Mean Platelet Volume 5.8L, Neutrophils (%) (Auto) 63.4, Lymphocytes (%) (Auto) 26.7, Monocytes (%) (Auto) 5.9, Eosinophils (%) (Auto) 3.2H, Basophils (%) (Auto) 0.8, Sodium Level 142, Potassium Level 3.6, Chloride Level 103, Carbon Dioxide Level 30, Anion Gap 9, Blood Urea Nitrogen 53H, Creatinine 1.0, Estimat Glomerular Filtration Rate , Glucose Level 127H, Calcium Level 8.5, Total Bilirubin 0.2, Aspartate Amino Transf (AST/SGOT) 27, Alanine Aminotransferase (ALT/SGPT) 61, Alkaline Phosphatase 143H, Total Protein 8.1, Albumin 2.9L, Globulin 5.2, Albumin/Globulin Ratio 0.6L Height (Feet): 5 Height (Inches): 3.00 Weight (Pounds): 125 Objective General Appearance: WD/WN, confused. on trach collar Neck: supple Cardiovascular: normal rate, regular rhythm Respiratory/Chest: chest wall non-tender, rhonchi - bilaterally(minimal) Abdomen: normal bowel sounds, non tender, soft, no organomegaly Edema: no edema noted Arm (L), no edema noted Arm (R), no edema noted Leg (L), no edema noted Leg (R), no edema noted Pedal (L), no edema noted Pedal (R), no edema noted Generalized Neurologic: disoriented, unresponsive, aphasia Irvin Beltrán MD Apr 09, 2019 17:30
--- NOTE | 2019-04-09 17:42 | Surgery Progress Note ---
Surgery Progress Note Subjective Additional Comments silver nit placed stable comfortable Objective Last 24 Hour Vital Signs Date Time Temp Pulse Resp B/P (MAP) Pulse Ox O2 Delivery O2 Flow Rate FiO2 04/09/19 15:00 85 22 112/45 (67) 100 04/09/19 14:00 93 25 115/51 (72) 100 04/09/19 13:00 82 23 130/49 (76) 98 04/09/19 12:30 99 T-Piece 5.0 28 04/09/19 12:00 5.0 28 04/09/19 12:00 T-piece 5.0 T-piece 5.0 04/09/19 12:00 98.8 80 23 112/43 (66) 100 04/09/19 12:00 80 04/09/19 11:00 81 22 121/53 (75) 100 04/09/19 10:59 84 21 100 T-Piece 5.0 28 86 22 100 04/09/19 10:00 78 26 116/47 (70) 100 04/09/19 10:00 75 22 116/47 (70) 100 04/09/19 09:00 78 22 111/44 (66) 100 04/09/19 08:00 79 04/09/19 08:00 T-piece 5.0 T-piece 5.0 04/09/19 08:00 77 04/09/19 08:00 5.0 28 04/09/19 08:00 98.7 79 23 96/42 (60) 99 04/09/19 07:12 74 16 100 T-Piece 5.0 28 04/09/19 07:12 79 22 100 T-Piece 5.0 28 74 16 100 04/09/19 07:12 100 T-Piece 5.0 28 04/09/19 07:00 76 22 98/48 (65) 99 04/09/19 06:00 74 19 115/53 (73) 100 04/09/19 05:00 75 16 106/48 (67) 100 04/09/19 04:00 98.1 74 23 106/48 (67) 98 04/09/19 04:00 T-piece 5.0 T-piece 5.0 04/09/19 04:00 5.0 28 04/09/19 03:13 76 04/09/19 03:11 79 22 100 T-Piece 5.0 28 77 22 99 04/09/19 03:00 76 22 110/48 (68) 99 04/09/19 02:00 78 23 125/59 (81) 98 04/09/19 01:32 100 T-Piece 5.0 28 04/09/19 01:00 78 20 118/49 (72) 98 04/09/19 00:00 98.4 79 23 145/61 (89) 100 04/09/19 00:00 T-piece 5.0 T-piece 5.0 04/08/19 23:43 76 16 100 T-Piece 5.0 28 83 18 100 04/08/19 23:04 100 04/08/19 23:00 77 21 103/47 (65) 100 04/08/19 22:00 81 20 94/40 (58) 97 04/08/19 21:00 81 20 107/50 (69) 100 04/08/19 20:00 98.2 81 20 107/43 (64) 100 04/08/19 20:00 T-piece 5.0 T-piece 5.0 04/08/19 20:00 5.0 28 04/08/19 19:53 100 T-Piece 5.0 28 04/08/19 19:52 105 22 100 T-Piece 5.0 28 88 20 100 04/08/19 19:27 80 04/08/19 19:00 86 22 129/49 (75) 100 04/08/19 18:00 78 26 95/40 (58) 99 I&O Intake and Output 04/08/19 04/09/19 19:00 07:00 Intake Total 1230 ml 1005 ml Output Total 880 ml 1025 ml Balance 350 ml -20 ml Free Water 225 ml 225 ml Tube Feeding 780 ml 780 ml Other 225 ml Output Urine Total 580 ml 550 ml Gastric Drainage Total 300 ml 475 ml Dressing: dry Wound: clean Cardiovascular: RSR Respiratory: clear Abdomen: soft, non-tender, present bowel sounds Extremities: no edema, no tenderness, no cyanosis Laboratory Tests Test 04/09/19 04:00 White Blood Count 10.6 K/UL (4.8-10.8) Red Blood Count 3.83 M/UL (4.20-5.40) L Hemoglobin 11.3 G/DL (12.0-16.0) L Hematocrit 34.8 % (37.0-47.0) L Mean Corpuscular Volume 91 FL (80-99) Mean Corpuscular Hemoglobin 29.5 PG (27.0-31.0) Mean Corpuscular Hemoglobin Concent 32.5 G/DL (32.0-36.0) Red Cell Distribution Width 15.5 % (11.6-14.8) H Platelet Count 204 K/UL (150-450) Mean Platelet Volume 5.8 FL (6.5-10.1) L Neutrophils (%) (Auto) 63.4 % (45.0-75.0) Lymphocytes (%) (Auto) 26.7 % (20.0-45.0) Monocytes (%) (Auto) 5.9 % (1.0-10.0) Eosinophils (%) (Auto) 3.2 % (0.0-3.0) H Basophils (%) (Auto) 0.8 % (0.0-2.0) Sodium Level 142 MMOL/L (136-145) Potassium Level 3.6 MMOL/L (3.5-5.1) Chloride Level 103 MMOL/L (98-107) Carbon Dioxide Level 30 MMOL/L (21-32) Anion Gap 9 mmol/L (5-15) Blood Urea Nitrogen 53 mg/dL (7-18) H Creatinine 1.0 MG/DL (0.55-1.30) Estimat Glomerular Filtration Rate mL/min (>60) Glucose Level 127 MG/DL (74-106) H Calcium Level 8.5 MG/DL (8.5-10.1) Total Bilirubin 0.2 MG/DL (0.2-1.0) Aspartate Amino Transf (AST/SGOT) 27 U/L (15-37) Alanine Aminotransferase (ALT/SGPT) 61 U/L (12-78) Alkaline Phosphatase 143 U/L (46-116) H Total Protein 8.1 G/DL (6.4-8.2) Albumin 2.9 G/DL (3.4-5.0) L Globulin 5.2 g/dL Albumin/Globulin Ratio 0.6 (1.0-2.7) L Plan Problems: (1) Sacral decubitus ulcer Assessment & Plan: This is a 83-year-old female with multiple medical committees that is currently admitted for medical care and management and identified to have multiple wounds requiring care. On admission patient noted to have a resolved sacral decubitus ulcer. Has had prior care and is well-healed at this time. Will ensure it does not open up again. Patient has a right ischial decubitus ulcer that is resolved. Scar intact and well formed. Will monitor to ensure it does not open up again. Patient has a left ischial decubitus ulcer that can be identified to be stage IV with palpable bone that has been resolving as noted by the periwound tissue and scar but open area approximately 1 cm x 1.5 cm few millimeters deep to bone identified. Unsure if this is been to be completely healed prior and has since opened or if has been healing at this level. No foul odor no drainage was unsure local wound care until healed Bilateral heels soft without signs of injury Resolving pressure injury L ischium(L)1.8cm x (W)1cm.Scattered biofilm at base of wound. Edges flat and adherent with surrounding hyperpigmentation. No odor or exudate noted. Sacrum is pale pink with surrounding hyperpigmentation. Hyperpigmentation R ischium with small sheared area centrally.No areas of erythema or exudate noted. Both heels are soft but blanchable. Skin Assessed under collar of trach and no evidence of skin breakdown noted. All wound Tx. are effective and continued as ordered. Pt ahs an APM/Belén mattress overlay and is being repositioned per protocols and per tolerance.No new skin concerns noted. Full thickness pressure injury L Ischium with small amt biofilm (L)1.8cm x (W) 1cm. Surrounding pink hyperpigmentation. No odor or exudate noted. Eros hyperpigmentation from previous wound noted to sacrum. Pt also noted to have Cat 2 Skin Tear dorsal L hand, L 5th metatarsal extending into palm of hand. 80% skin flap in situ.Both heels are dry firm and blanchable. No other skin concerns noted. R ischial wound has resolved. Eros epithelial with surrounding hyperpigmentation. from historical wound. Full thickness pressure injury L ischium. Eros granulation at base of wound. Borders are macerated with Surrounding hyperpigmentation.Small amt non-odorous serous exudate noted.(L)0.7cm x (W)0.8cm. Skin hyperpigmentation from historical wound noted to Sacrum. Small sheared area noted to sacrococcygeal area.(L)0.4cm x (W)0.3cm.Small amt sanguineous exudate noted. Reabsorbed blister with semi-detached dry necrotic cap noted to web space of L thumb and L index fingers extending into palm of L hand. No odor or exudate noted. Skin assessed under tracheal collar and no erythema or evidence of Skin Breakdown noted. NO new skin concerns noted . Good hand hygiene provided to both hands. R hand contracted and fisted. Fingernails trimmed. Wound care provided along with Primary nurse. Wound Tx continued as ordered. New order obtained from to apply Betadine to wound L hand Daily. Tx done as ordered. L hand wrapped with kerlix weaving kerlix between fingers to separate fingers. Moisture Barrier applied to sacrum ,R ischium. Each site covered with Optifoam drsg. Both lower ext washed and moisturized. Cavilon Skin Barrier applied to both heels.Each heel covered with Optifoam drsgs. Pt positioned with pillows and both heels off-loaded with pillow. Pt wounds are resolving. Loose necrotic cap within web space of L index finger and L thumb easily removed with gentle friction. Base of wound is hypergranular with 10% necrosis. Borders are macerated. Application of Silver Nitrate to hypergranular base done. Cavilon Skin Barrier applied to borders . Good hand hygiene provided. Wound covered with Abd pad. L hand wrapped with Kerlix weaving Kerlix between digitsof L hand. Pressure injury L ischium resolving. Base iof wound is pale pink and dry with surrounding hyperpigmentation and scar from previous wound. Hyperpigmentation with historical scars noted to Sacrum and R ischium. Both heels are soft and blanchable. Skin Assessed under trach collar and no evidence of skin breakdown noted. Tx.Plan: Apply Betadine to wound L hand. Cover with Gauze and wrap with Kerlix Daily and prn. Cleanse L ischial wound with Saline. Apply Therahoney. Apply Moisture Barrier periwound. Cover with Optifoam drsgevery 3 days and prn. Apply Moisture Barrier Paste to R ischium and Sacrum. Cover each area with Optifoam drsg. Change every 3 days and prn. Apply Cavilon Skin Barrier to both heels. Cover each heel with Optifoam drsg. Change every 7 days and prn. Cleanse Blister Dorsal and palm of L hand with saline. Versatel One Silicone Contact Layer(Applied). Apply Silvasorb Gel. Wrap with Kerlix Gauze.Change every 7 days and prn. Apply Moisture Barrier to sacrum. Cover with Optifoam drsg. Change every 3 days and prn. APM/BELÉN Mattress overlay. Reposition at least every 2hours or as tolerated. Off-load heels with pillow. Nutritional optimization We will monitor follow with recommendations cont with above upon d/c wounds healing overall improving (2) Sepsis Assessment & Plan: IV abx as per ID trend labs improving wounds unlikely etiology likely respiratory imaging noted and okay abnormal lft's stable PICC on Abx in ICU for desaturation CXR with consolidation cont with frequent suctioning d/c planning g j via GI daughter wants close attention to wounds and management to ensure healing Evidence of left lower lobe pneumonia, also previously demonstrated Gastrostomy in good position Mild diastasis of the rectus abdominis musculature again demonstrated Retrosacral decubitus changes, better depicted on prior exam which included the pelvis Small hiatal hernia with evidence of trace gastroesophageal reflux Discussed with GI. Recommend GJ family still pending decision transfuse prbc prn monitor h/h monitor bm LFTs improving trending down (3) Feeding by G-tube Assessment & Plan: DAILY ESTIMATED NEEDS: Needs based on Pulmonary, wounds, bedbound/ 61kg adj 25-30 kcals/kg 5754-0644 total kcals 1.25-2 g protein/kg 76-122 g total protein 25-30 mL/kg 6578-0988 total fluid mLs NUTRITION DIAGNOSIS: * Increased kcal/prot needs R/T wound healing as evidenced by BL buttocks and sacral wound photos, refer to WC eval. * Swallowing difficulty R/T respiratory status as evidenced by pt on T-collar, s/p G-J conversion CURRENT TF:Glucerna 1.5 @ 50ml/hr x 24 hrs ENTERAL NUTRITION RECOMMENDATIONS: Glucerna 1.5 @ 50ml/hr x 24 hrs to provide 1200ml, 1800 kcal, 99g pro, 911ml free H2O - Maintain at current rate as tolerated to meet 100% est needs - HOB over 30 degrees - INCREASE water flush of 170ml q 6 hrs ADDITIONAL RECOMMENDATIONS: 1) RE-calibrate bedscale wt: fluctuating daily wts (108#-136# last 6 days) 2) Wound healing: Add Cristian 1pkt BID w/ continued good TF tolerance. 3) Increase water flushes, monitor for signs of water deficits 4) Monitor BGs closely, need for NISS -> now w/ improved BGs 5) Monitor for continued good TF tolerance 6) Monitor K : elev K on 03/25, s/p Kdur BID, now dc'ed. (4) Chronic vegetative state Assessment & Plan: incontinence of urine and stool. can soil dressings. nurses doing great job with monitoring and changing prn (5) Leukocytosis Walter Madera Apr 09, 2019 17:42
--- NOTE | 2019-04-09 19:35 | NUR ---
HAND-OFF: Report given to Bjorn Ramos pt in no acute distress
--- NOTE | 2019-04-09 19:36 | NUR ---
NURSE NOTES: SBAR from Angela PAEZ. Patient is obtunded, opens eyes to shaking and spontaneously. Localized flexion to pain on nail bed. Upper extremities are contracted, foot drop bilaterally. Patient has right hand wrapped in Kerlix. Bilateral pupils are about 3mm sluggish response. Blink reflexes are intact. Upper and lower extremity strength is 0/5. Patient is trachea dependent Shiley 6, T piece at 28%/5L O2. SpO2 is 99%, RR 16, regular and unlabored. Oral secretions are frothy in white, suctioned patient. Trachea is centered. Lung sounds heard, slightly diminished with rhonchi sounds. Soft abdomen, GJ tube noted, J tube running Vital AF at 65ml/hr, about 20ml of residual noted. G tube is to gravity drainage. no BM at this time. Skin is cool to touch, cap refil < 3sec. Pulses noted upper and lower extremities. isolation precautions noted, seizure precautions noted. Safety measures are in place. Patient noted to have Purewick in place with light fernando urine draining.
[2019-04-09] MEDS: Dyna-Hex 2% Top Sol 2oz TOPIC SCH (20:00)
--- NOTE | 2019-04-09 20:00 | NUR ---
NURSE NOTES: Patient was cleaned and new Optifoam was applied. Oral care was performed, trach and oral suctioning performed. Patient isnt in any form of distress at this time. Vitals are stable, patient is afebrile and cool to the touch. Patient was repositioned and heels kept off loaded. New female external catheter was placed.
[2019-04-09] MEDS: Acetaminophen 650mg/20.3ml GT PRN (21:07)
[2019-04-09] MEDS ORDERED: Fleet's Enema 133ml RECTAL SCH (21:15)
--- NOTE | 2019-04-09 21:18 | General Progress Note ---
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 - Elevated glucose - poor Prognosis Recommendations - ATC sorbitol and fleets enema x 1 - antibiotic ointment to GJT site PRN - aspiration precautions - elevate HOB - Vital AF 1.2 - check q 6 hour FS - transfuse to keep Hg > 7 - J tube feeds - G tube drain Subjective Allergies: Coded Allergies: CODEINE (Verified Allergy, Unknown, HIVES, 09/15/09) Subjective above noted tolerating TF via J port d/w RN still no BM x several days Iron Rx noted Objective Last 24 Hour Vital Signs Date Time Temp Pulse Resp B/P (MAP) Pulse Ox O2 Delivery O2 Flow Rate FiO2 04/09/19 19:33 92 21 100 T-Piece 5.0 28 95 22 100 04/09/19 19:33 100 T-Piece 5.0 28 04/09/19 18:00 82 24 96/44 (61) 99 04/09/19 17:00 82 23 113/47 (69) 99 04/09/19 16:00 5.0 28 04/09/19 16:00 T-piece 5.0 T-piece 5.0 04/09/19 16:00 85 04/09/19 16:00 98.8 91 24 118/48 (71) 100 04/09/19 15:00 85 22 112/45 (67) 100 04/09/19 14:00 93 25 115/51 (72) 100 04/09/19 13:00 82 23 130/49 (76) 98 04/09/19 12:30 99 T-Piece 5.0 28 04/09/19 12:00 5.0 28 04/09/19 12:00 T-piece 5.0 T-piece 5.0 04/09/19 12:00 98.8 80 23 112/43 (66) 100 04/09/19 12:00 80 04/09/19 11:00 81 22 121/53 (75) 100 04/09/19 10:59 84 21 100 T-Piece 5.0 28 86 22 100 04/09/19 10:00 78 26 116/47 (70) 100 04/09/19 10:00 75 22 116/47 (70) 100 04/09/19 09:00 78 22 111/44 (66) 100 04/09/19 08:00 79 04/09/19 08:00 T-piece 5.0 T-piece 5.0 04/09/19 08:00 77 04/09/19 08:00 5.0 28 04/09/19 08:00 98.7 79 23 96/42 (60) 99 04/09/19 07:12 74 16 100 T-Piece 5.0 28 04/09/19 07:12 79 22 100 T-Piece 5.0 28 74 16 100 04/09/19 07:12 100 T-Piece 5.0 28 04/09/19 07:00 76 22 98/48 (65) 99 04/09/19 06:00 74 19 115/53 (73) 100 04/09/19 05:00 75 16 106/48 (67) 100 04/09/19 04:00 98.1 74 23 106/48 (67) 98 04/09/19 04:00 T-piece 5.0 T-piece 5.0 04/09/19 04:00 5.0 28 04/09/19 03:13 76 04/09/19 03:11 79 22 100 T-Piece 5.0 28 77 22 99 04/09/19 03:00 76 22 110/48 (68) 99 04/09/19 02:00 78 23 125/59 (81) 98 04/09/19 01:32 100 T-Piece 5.0 28 04/09/19 01:00 78 20 118/49 (72) 98 04/09/19 00:00 98.4 79 23 145/61 (89) 100 04/09/19 00:00 T-piece 5.0 T-piece 5.0 04/08/19 23:43 76 16 100 T-Piece 5.0 28 83 18 100 04/08/19 23:04 100 04/08/19 23:00 77 21 103/47 (65) 100 04/08/19 22:00 81 20 94/40 (58) 97 Intake and Output 04/08/19 04/09/19 19:00 07:00 Intake Total 1230 ml 1005 ml Output Total 880 ml 1025 ml Balance 350 ml -20 ml Free Water 225 ml 225 ml Tube Feeding 780 ml 780 ml Other 225 ml Output Urine Total 580 ml 550 ml Gastric Drainage Total 300 ml 475 ml Laboratory Tests 04/09/19 04:00: White Blood Count 10.6, Red Blood Count 3.83L, Hemoglobin 11.3L, Hematocrit 34.8L, Mean Corpuscular Volume 91, Mean Corpuscular Hemoglobin 29.5, Mean Corpuscular Hemoglobin Concent 32.5, Red Cell Distribution Width 15.5H, Platelet Count 204, Mean Platelet Volume 5.8L, Neutrophils (%) (Auto) 63.4, Lymphocytes (%) (Auto) 26.7, Monocytes (%) (Auto) 5.9, Eosinophils (%) (Auto) 3.2H, Basophils (%) (Auto) 0.8, Sodium Level 142, Potassium Level 3.6, Chloride Level 103, Carbon Dioxide Level 30, Anion Gap 9, Blood Urea Nitrogen 53H, Creatinine 1.0, Estimat Glomerular Filtration Rate , Glucose Level 127H, Calcium Level 8.5, Total Bilirubin 0.2, Aspartate Amino Transf (AST/SGOT) 27, Alanine Aminotransferase (ALT/SGPT) 61, Alkaline Phosphatase 143H, Total Protein 8.1, Albumin 2.9L, Globulin 5.2, Albumin/Globulin Ratio 0.6L Height (Feet): 5 Height (Inches): 3.00 Weight (Pounds): 125 Objective Debilitated AA woman non-verbal, obtunded NCAT (+) trach coarse BS RR obese abd, (+) GJT no edema (+) contractured extremities Celio Vaughan MD Apr 09, 2019 21:18
[2019-04-09] MEDS: Sorbitol Solution UD 30ml GT SCH (21:40)
--- NOTE | 2019-04-09 22:00 | NUR ---
NURSE NOTES: Dr. Rangel called to received updates on patients status. New orders were placed by MD for Sorbitol Via G or J tube and one time order for fleet enema to be given. Orders were carried out. Patient was cleaned again and repositioned again and new External catheter was placed. Optifoam remains clean and dry. Trach and oral suctioning were performed.
[2019-04-09] MEDS ORDERED: Albuterol/Ipratropium 3ml neb HHN ONE (23:45)
[2019-04-10] VITALS (24 sets, daily range): BP systolic 106–149; BP diastolic 47–66
--- NOTE | 2019-04-10 | NUR ---
NURSE NOTES: Repositioned patient, remains clean and dry at this time, oral care was performed. Oral suctioning and trach suctioning performed. No apparent distress at this time. Vitals have remained stable, afebrile. Glucose was checked and noted to be 135. Will continue to monitor.
--- NOTE | 2019-04-10 01:15 | Progress Note ---
DATE: 04/08/2019 CARDIOLOGY PROGRESS NOTE Late entry. The patient is tolerating feeding. No nausea or vomiting. Monitored sinus rhythm. Blood pressure parameters remained stable. Thin secretions. G-tube exam unchanged. Stable from cardiovascular standpoint on current regimen. Awaiting disposition to lower level of care. Bg Hagen M.D. DR: LUCIAN JOB#: [id number] CC:
--- NOTE | 2019-04-10 01:30 | Progress Note ---
DATE: 04/09/2019 CARDIOLOGY PROGRESS NOTE SUBJECTIVE: The patient with minimal secretions, on G-tube. No respiratory distress. Monitored rhythm, sinus. Blood pressure range stable. OBJECTIVE: LUNGS: Bilateral breath sounds with minimal secretions. CARDIAC: Regular rhythm and rate. Normal S1, S2. ABDOMEN: Soft. GJ tube intact. EXTREMITIES: Trace edema. LABORATORY DATA: Reviewed. White count 10, hemoglobin 11. Potassium 3.6. Albumin 2.9. BUN 53, creatinine 1. IMPRESSION: Prerenal azotemia. Otherwise, condition unchanged. PLAN: 1. Recheck renal parameters. 2. Consider additional volume support or decreased sorbitol dosing. Bg Hagen M.D. DR: KAILA JOB#: [id number] CC:
--- NOTE | 2019-04-10 02:00 | NUR ---
NURSE NOTES: Patient cleaned again and new Optifoam applied. New external catheter applied. Oral and trach suctioning performed. Repositioned patient. Flacc score 0/10. Afebrile and no distress at this time.
--- NOTE | 2019-04-10 04:00 | NUR ---
NURSE NOTES: Cleaned patient once again and changed Optifoam dressing. New external female catheter applied. Patient suctioned and oral care given. Vitals are stable, NAD, cool to touch. Blood drawn and taken to lab. Will continue to monitor.
[2019-04-10] MEDS: Albuterol/Ipratropium 3ml neb HHN SCH ×6 (04:01→23:43)
[2019-04-10 05:28] LABS: BASOPHILS % (AUTO) 0.4 % (0.0-2.0); EOSINOPHILS % (AUTO) 1.9 % (0.0-3.0); HEMATOCRIT 35.8 % (37.0-47.0); HEMOGLOBIN 11.6 G/DL (12.0-16.0); LYMPHOCYTES % (AUTO) 17.4 % (20.0-45.0); MEAN CORPUSCULAR VOLUME 91 FL (80-99); MONOCYTES % (AUTO) 4.9 % (1.0-10.0); NEUTROPHILS % (AUTO) 75.4 % (45.0-75.0); PLATELET COUNT 198 K/UL (150-450); RED BLOOD COUNT 3.95 M/UL (4.20-5.40); RED CELL DISTRIBUTION WIDTH 15.5 % (11.6-14.8)
[2019-04-10] MEDS: Sorbitol Solution UD 30ml GT SCH ×2 (05:41→14:00)
[2019-04-10 05:58] LABS: ALANINE AMINOTRANSFERASE 83 U/L (12-78); ALBUMIN/GLOBULIN RATIO 0.5 (1.0-2.7); ALKALINE PHOSPHATASE 174 U/L (46-116); ANION GAP 10 mmol/L (5-15); ASPARTATE AMINO TRANSFERASE 54 U/L (15-37); BILIRUBIN,TOTAL 0.2 MG/DL (0.2-1.0); BLOOD UREA NITROGEN 63 mg/dL (7-18); CALCIUM 8.8 MG/DL (8.5-10.1); CARBON DIOXIDE 29 MMOL/L (21-32); CHLORIDE 103 MMOL/L (98-107); CREATININE 1.1 MG/DL (0.55-1.30); POTASSIUM 3.5 MMOL/L (3.5-5.1); SODIUM 142 MMOL/L (136-145)
--- NOTE | 2019-04-10 06:02 | NUR ---
NURSE NOTES: Patient repositioned, remains clean and dry at this time. Vitals have continued to be stable. Cool ton the touch, Trach and oral suction provided.
--- NOTE | 2019-04-10 07:22 | NUR ---
HAND-OFF: Report given to Bg PAEZ.
--- NOTE | 2019-04-10 08:00 | NUR ---
NURSE NOTES: Report received from JEANNINE [place] Patient is obtunded with sluggish pupil response, she has trach on a Shiley 6 with T-piece at 28% with 5L/min with saturations of 95-100%. Tube feeding is running at 65ml/hr with Vital A.F. 1.2 infusing through J-tube, Patient has Purewick to remove urine which is straw colored, she is on air mattress to relief pressure from sacral and heels.
--- NOTE | 2019-04-10 08:38 | Pulmonology Progress Note ---
Assessment/Plan Assessment/Plan Impression: history of Sepsis history of Pneumonia Trach, G tube, Hypertension, Cardiac disease, Dementia, Previous CVA, Seizure disorder, Respiratory failure with hypoxia Anemia, Sacral ulcer renal cyst chronic pulmonary congestion Plan continue to monitor airway off vent and monitor as is oxygen low flow aspiration precautions to continue elevate head and monitor secretions DNR. No CPR. ICU care reviewed meds noted off load all changes noted and discussed hope to transfer to [place] if family agrees medications/laboratory data/nursing notes/ICU care reviewed in detail note reviewed and edited care discussed with RN and RT Subjective ROS Limited/Unobtainable: Yes Allergies: Coded Allergies: CODEINE (Verified Allergy, Unknown, HIVES, 09/15/09) Subjective respiratory care and RT care noted d/w with primary and ICU team ICU care issues discussed bed bound and obtunded findings reviewed and discussed Objective Last 24 Hour Vital Signs Date Time Temp Pulse Resp B/P (MAP) Pulse Ox O2 Delivery O2 Flow Rate FiO2 04/10/19 08:09 5.0 28 04/10/19 08:00 99.2 104 32 134/52 (79) 100 04/10/19 07:00 105 29 136/51 (79) 100 04/10/19 06:55 104 24 100 T-Piece 5.0 28 103 26 100 04/10/19 06:45 100 T-Piece 5.0 28 04/10/19 06:00 115 26 149/60 (89) 98 04/10/19 05:00 115 27 130/55 (80) 98 04/10/19 04:02 98 21 100 T-Piece 5.0 28 96 26 100 04/10/19 04:00 78 04/10/19 04:00 98.9 95 27 119/49 (72) 100 04/10/19 04:00 T-piece 5.0 T-piece 5.0 04/10/19 04:00 5.0 28 04/10/19 03:00 100 34 113/50 (71) 98 04/10/19 02:00 95 26 112/52 (72) 99 04/10/19 01:41 100 T-Piece 5.0 28 04/10/19 01:00 93 27 106/47 (66) 96 04/10/19 00:00 T-piece 5.0 T-piece 5.0 1/10/20 00:00 99.3 89 27 110/51 (70) 100 04/10/19 00:00 5.0 28 04/10/19 00:00 80 04/09/19 23:59 101 24 100 T-Piece 5.0 28 98 22 99 04/09/19 23:00 91 24 118/47 (70) 97 04/09/19 22:00 T-piece 5.0 T-piece 5.0 04/09/19 22:00 82 22 120/52 (74) 99 04/09/19 21:00 86 24 116/47 (70) 98 04/09/19 20:00 99.2 86 24 112/43 (66) 97 04/09/19 20:00 5.0 28 04/09/19 20:00 T-piece 5.0 T-piece 5.0 04/09/19 20:00 90 04/09/19 19:33 92 21 100 T-Piece 5.0 28 95 22 100 04/09/19 19:33 100 T-Piece 5.0 28 04/09/19 19:00 81 24 115/46 (69) 100 04/09/19 18:00 82 24 96/44 (61) 99 04/09/19 17:00 82 23 113/47 (69) 99 04/09/19 16:00 5.0 28 04/09/19 16:00 T-piece 5.0 T-piece 5.0 04/09/19 16:00 85 04/09/19 16:00 98.8 91 24 118/48 (71) 100 04/09/19 15:00 85 22 112/45 (67) 100 04/09/19 14:00 93 25 115/51 (72) 100 04/09/19 13:00 82 23 130/49 (76) 98 04/09/19 12:30 99 T-Piece 5.0 28 04/09/19 12:00 5.0 28 04/09/19 12:00 T-piece 5.0 T-piece 5.0 04/09/19 12:00 98.8 80 23 112/43 (66) 100 04/09/19 12:00 80 04/09/19 11:00 81 22 121/53 (75) 100 04/09/19 10:59 84 21 100 T-Piece 5.0 28 86 22 100 04/09/19 10:00 78 26 116/47 (70) 100 04/09/19 10:00 75 22 116/47 (70) 100 04/09/19 09:00 78 22 111/44 (66) 100 Intake and Output 04/09/19 04/10/19 19:00 07:00 Intake Total 1230 ml 1005 ml Output Total 735 ml 1125 ml Balance 495 ml -120 ml Free Water 225 ml 75 ml Tube Feeding 780 ml 780 ml Other 225 ml 150 ml Output Urine Total 435 ml 525 ml Gastric Drainage Total 300 ml 600 ml Objective WDWN NAD contracted off vent reduced breath sounds bilaterally without rhonchi or wheeze [id number] without MRG NABS nontender no HSM no CC trace edema same nonfocal nonverbal trach and gt reviewed and edited Laboratory Tests 04/10/19 04:00: White Blood Count 12.0H, Red Blood Count 3.95L, Hemoglobin 11.6L, Hematocrit 35.8L, Mean Corpuscular Volume 91, Mean Corpuscular Hemoglobin 29.5, Mean Corpuscular Hemoglobin Concent 32.6, Red Cell Distribution Width 15.5H, Platelet Count 198, Mean Platelet Volume 5.6L, Neutrophils (%) (Auto) 75.4H, Lymphocytes (%) (Auto) 17.4L, Monocytes (%) (Auto) 4.9, Eosinophils (%) (Auto) 1.9, Basophils (%) (Auto) 0.4, Sodium Level 142, Potassium Level 3.5, Chloride Level 103, Carbon Dioxide Level 29, Anion Gap 10, Blood Urea Nitrogen 63H, Creatinine 1.1, Estimat Glomerular Filtration Rate , Glucose Level 136H, Calcium Level 8.8, Magnesium Level 2.2, Total Bilirubin 0.2, Aspartate Amino Transf (AST/SGOT) 54H, Alanine Aminotransferase (ALT/SGPT) 83H, Alkaline Phosphatase 174H, Total Protein 8.6H, Albumin 3.0L, Globulin 5.6, Albumin/ Globulin Ratio 0.5L Current Medications Medications (Trade) Dose Ordered Sig/Maicol Route PRN Reason Start Time Stop Time Status Last Admin Dose Admin Acetaminophen (Tylenol) 650 mg Q6H PRN GT Mild Pain/Temp > 100.5 03/23/19 15:15 04/22/19 15:14 04/09/19 21:07 Albuterol/ Ipratropium (Albuterol/ Ipratropium) 3 ml Q4HRT HHN 04/10/19 03:00 04/15/19 02:59 04/10/19 06:45 Atropine Sulfate (Atropine Opth Adriana) 1 drop THREE TIMES A DAY SL 04/08/19 09:00 05/07/19 20:59 04/09/19 18:17 Chlorhexidine Gluconate (Cesilia-Hex 2%) 1 applic DAILY@1999 TOPIC 03/12/19 20:00 04/11/19 19:59 04/09/19 20:00 Folic Acid (Folate) 1 mg DAILY GT 04/08/19 09:00 05/08/19 08:59 04/09/19 08:56 Heparin Sodium (Porcine) (Heparin 5000 units/ml) 5,000 units EVERY 12 HOURS SUBQ 04/01/19 10:00 05/01/19 09:59 04/09/19 21:09 Hydralazine HCl (Apresoline) 25 mg Q6H PRN ORAL SBP above 150 04/06/19 02:45 05/06/19 02:44 04/06/19 11:15 Lansoprazole (Prevacid) 30 mg Q12HR GT 03/29/19 09:00 04/24/19 20:59 04/09/19 21:06 Levetiracetam (Keppra) 750 mg Q12HR GT 04/07/19 21:00 05/07/19 20:59 04/09/19 21:07 Ondansetron HCl (Zofran) 4 mg Q4H PRN IVP Nausea & Vomiting 03/18/19 18:15 04/17/19 18:14 03/21/19 08:27 Sorbitol (Sorbitol) 60 ml EVERY 8 HOURS GT 04/09/19 22:00 05/09/19 21:59 04/10/19 05:41 Amaury Chan MD Apr 10, 2019 08:37
--- NOTE | 2019-04-10 09:00 | NUR ---
NURSE NOTES: Sacral wound care provided with healed skin, pick and blanchable skin noted and protected with Optifoam, Heels are pink and blanchable and covered with Cavilon and Optifoam, heels are elevated.
[2019-04-10] MEDS: Heparin 5000 units/ml inj SUBQ SCH ×2 (09:37→20:14)
--- NOTE | 2019-04-10 10:00 | NUR ---
NURSE NOTES: New tube feeding of Vital AF 1.2 bottle hung. no residual noted when aspiration, 20ml of saline flushed to clear tubing. resume feeding at 65ml/hr.
--- NOTE | 2019-04-10 10:51 | Surgery Progress Note ---
Surgery Progress Note Subjective Additional Comments stable no acute events Objective Last 24 Hour Vital Signs Date Time Temp Pulse Resp B/P (MAP) Pulse Ox O2 Delivery O2 Flow Rate FiO2 04/10/19 10:00 93 29 145/63 (90) 99 04/10/19 09:00 96 31 145/66 (92) 99 04/10/19 08:09 5.0 28 04/10/19 08:00 99.2 104 32 134/52 (79) 100 04/10/19 08:00 T-piece 5.0 T-piece 5.0 04/10/19 08:00 106 04/10/19 07:00 105 29 136/51 (79) 100 04/10/19 06:55 104 24 100 T-Piece 5.0 28 103 26 100 04/10/19 06:45 100 T-Piece 5.0 28 04/10/19 06:00 115 26 149/60 (89) 98 04/10/19 05:00 115 27 130/55 (80) 98 04/10/19 04:02 98 21 100 T-Piece 5.0 28 96 26 100 04/10/19 04:00 78 04/10/19 04:00 98.9 95 27 119/49 (72) 100 04/10/19 04:00 T-piece 5.0 T-piece 5.0 04/10/19 04:00 5.0 28 04/10/19 03:00 100 34 113/50 (71) 98 04/10/19 02:00 95 26 112/52 (72) 99 04/10/19 01:41 100 T-Piece 5.0 28 04/10/19 01:00 93 27 106/47 (66) 96 04/10/19 00:00 T-piece 5.0 T-piece 5.0 04/10/19 00:00 99.3 89 27 110/51 (70) 100 04/10/19 00:00 5.0 28 04/10/19 00:00 80 04/09/19 23:59 101 24 100 T-Piece 5.0 28 98 22 99 04/09/19 23:00 91 24 118/47 (70) 97 04/09/19 22:00 T-piece 5.0 T-piece 5.0 04/09/19 22:00 82 22 120/52 (74) 99 04/09/19 21:00 86 24 116/47 (70) 98 04/09/19 20:00 99.2 86 24 112/43 (66) 97 04/09/19 20:00 5.0 28 04/09/19 20:00 T-piece 5.0 T-piece 5.0 04/09/19 20:00 90 04/09/19 19:33 92 21 100 T-Piece 5.0 28 95 22 100 04/09/19 19:33 100 T-Piece 5.0 28 04/09/19 19:00 81 24 115/46 (69) 100 04/09/19 18:00 82 24 96/44 (61) 99 04/09/19 17:00 82 23 113/47 (69) 99 04/09/19 16:00 5.0 28 04/09/19 16:00 T-piece 5.0 T-piece 5.0 04/09/19 16:00 85 04/09/19 16:00 98.8 91 24 118/48 (71) 100 04/09/19 15:00 85 22 112/45 (67) 100 04/09/19 14:00 93 25 115/51 (72) 100 04/09/19 13:00 82 23 130/49 (76) 98 04/09/19 12:30 99 T-Piece 5.0 28 04/09/19 12:00 5.0 28 04/09/19 12:00 T-piece 5.0 T-piece 5.0 04/09/19 12:00 98.8 80 23 112/43 (66) 100 04/09/19 12:00 80 04/09/19 11:00 81 22 121/53 (75) 100 04/09/19 10:59 84 21 100 T-Piece 5.0 28 86 22 100 I&O Intake and Output 04/09/19 04/10/19 19:00 07:00 Intake Total 1230 ml 1005 ml Output Total 735 ml 1125 ml Balance 495 ml -120 ml Free Water 225 ml 75 ml Tube Feeding 780 ml 780 ml Other 225 ml 150 ml Output Urine Total 435 ml 525 ml Gastric Drainage Total 300 ml 600 ml Dressing: dry Wound: clean Cardiovascular: RSR Respiratory: clear Abdomen: soft, non-tender, present bowel sounds Extremities: no tenderness, no cyanosis Laboratory Tests Test 04/10/19 04:00 White Blood Count 12.0 K/UL (4.8-10.8) H Red Blood Count 3.95 M/UL (4.20-5.40) L Hemoglobin 11.6 G/DL (12.0-16.0) L Hematocrit 35.8 % (37.0-47.0) L Mean Corpuscular Volume 91 FL (80-99) Mean Corpuscular Hemoglobin 29.5 PG (27.0-31.0) Mean Corpuscular Hemoglobin Concent 32.6 G/DL (32.0-36.0) Red Cell Distribution Width 15.5 % (11.6-14.8) H Platelet Count 198 K/UL (150-450) Mean Platelet Volume 5.6 FL (6.5-10.1) L Neutrophils (%) (Auto) 75.4 % (45.0-75.0) H Lymphocytes (%) (Auto) 17.4 % (20.0-45.0) L Monocytes (%) (Auto) 4.9 % (1.0-10.0) Eosinophils (%) (Auto) 1.9 % (0.0-3.0) Basophils (%) (Auto) 0.4 % (0.0-2.0) Sodium Level 142 MMOL/L (136-145) Potassium Level 3.5 MMOL/L (3.5-5.1) Chloride Level 103 MMOL/L (98-107) Carbon Dioxide Level 29 MMOL/L (21-32) Anion Gap 10 mmol/L (5-15) Blood Urea Nitrogen 63 mg/dL (7-18) H Creatinine 1.1 MG/DL (0.55-1.30) Estimat Glomerular Filtration Rate mL/min (>60) Glucose Level 136 MG/DL (74-106) H Calcium Level 8.8 MG/DL (8.5-10.1) Magnesium Level 2.2 MG/DL (1.8-2.4) Total Bilirubin 0.2 MG/DL (0.2-1.0) Aspartate Amino Transf (AST/SGOT) 54 U/L (15-37) H Alanine Aminotransferase (ALT/SGPT) 83 U/L (12-78) H Alkaline Phosphatase 174 U/L (46-116) H Total Protein 8.6 G/DL (6.4-8.2) H Albumin 3.0 G/DL (3.4-5.0) L Globulin 5.6 g/dL Albumin/Globulin Ratio 0.5 (1.0-2.7) L Plan Problems: (1) Sacral decubitus ulcer Assessment & Plan: This is a 83-year-old female with multiple medical committees that is currently admitted for medical care and management and identified to have multiple wounds requiring care. On admission patient noted to have a resolved sacral decubitus ulcer. Has had prior care and is well-healed at this time. Will ensure it does not open up again. Patient has a right ischial decubitus ulcer that is resolved. Scar intact and well formed. Will monitor to ensure it does not open up again. Patient has a left ischial decubitus ulcer that can be identified to be stage IV with palpable bone that has been resolving as noted by the periwound tissue and scar but open area approximately 1 cm x 1.5 cm few millimeters deep to bone identified. Unsure if this is been to be completely healed prior and has since opened or if has been healing at this level. No foul odor no drainage was unsure local wound care until healed Bilateral heels soft without signs of injury Resolving pressure injury L ischium(L)1.8cm x (W)1cm.Scattered biofilm at base of wound. Edges flat and adherent with surrounding hyperpigmentation. No odor or exudate noted. Sacrum is pale pink with surrounding hyperpigmentation. Hyperpigmentation R ischium with small sheared area centrally.No areas of erythema or exudate noted. Both heels are soft but blanchable. Skin Assessed under collar of trach and no evidence of skin breakdown noted. All wound Tx. are effective and continued as ordered. Pt ahs an APM/Belén mattress overlay and is being repositioned per protocols and per tolerance.No new skin concerns noted. Full thickness pressure injury L Ischium with small amt biofilm (L)1.8cm x (W) 1cm. Surrounding pink hyperpigmentation. No odor or exudate noted. [place] hyperpigmentation from previous wound noted to sacrum. Pt also noted to have Cat 2 Skin Tear dorsal L hand, L 5th metatarsal extending into palm of hand. 80% skin flap in situ.Both heels are dry firm and blanchable. No other skin concerns noted. R ischial wound has resolved. [place] epithelial with surrounding hyperpigmentation. from historical wound. Full thickness pressure injury L ischium. [place] granulation at base of wound. Borders are macerated with Surrounding hyperpigmentation.Small amt non-odorous serous exudate noted.(L)0.7cm x (W)0.8cm. Skin hyperpigmentation from historical wound noted to Sacrum. Small sheared area noted to sacrococcygeal area.(L)0.4cm x (W)0.3cm.Small amt sanguineous exudate noted. Reabsorbed blister with semi-detached dry necrotic cap noted to web space of L thumb and L index fingers extending into palm of L hand. No odor or exudate noted. Skin assessed under tracheal collar and no erythema or evidence of Skin Breakdown noted. NO new skin concerns noted . Good hand hygiene provided to both hands. R hand contracted and fisted. Fingernails trimmed. Wound care provided along with Primary nurse. Wound Tx continued as ordered. New order obtained from to apply Betadine to wound L hand Daily. Tx done as ordered. L hand wrapped with kerlix weaving kerlix between fingers to separate fingers. Moisture Barrier applied to sacrum ,R ischium. Each site covered with Optifoam drsg. Both lower ext washed and moisturized. Cavilon Skin Barrier applied to both heels.Each heel covered with Optifoam drsgs. Pt positioned with pillows and both heels off-loaded with pillow. Pt wounds are resolving. Loose necrotic cap within web space of L index finger and L thumb easily removed with gentle friction. Base of wound is hypergranular with 10% necrosis. Borders are macerated. Application of Silver Nitrate to hypergranular base done. Cavilon Skin Barrier applied to borders . Good hand hygiene provided. Wound covered with Abd pad. L hand wrapped with Kerlix weaving Kerlix between digitsof L hand. Pressure injury L ischium resolving. Base iof wound is pale pink and dry with surrounding hyperpigmentation and scar from previous wound. Hyperpigmentation with historical scars noted to Sacrum and R ischium. Both heels are soft and blanchable. Skin Assessed under trach collar and no evidence of skin breakdown noted. Tx.Plan: Apply Betadine to wound L hand. Cover with Gauze and wrap with Kerlix Daily and prn. Cleanse L ischial wound with Saline. Apply Therahoney. Apply Moisture Barrier periwound. Cover with Optifoam drsgevery 3 days and prn. Apply Moisture Barrier Paste to R ischium and Sacrum. Cover each area with Optifoam drsg. Change every 3 days and prn. Apply Cavilon Skin Barrier to both heels. Cover each heel with Optifoam drsg. Change every 7 days and prn. Cleanse Blister Dorsal and palm of L hand with saline. Versatel One Silicone Contact Layer(Applied). Apply Silvasorb Gel. Wrap with Kerlix Gauze.Change every 7 days and prn. Apply Moisture Barrier to sacrum. Cover with Optifoam drsg. Change every 3 days and prn. APM/BELÉN Mattress overlay. Reposition at least every 2hours or as tolerated. Off-load heels with pillow. Nutritional optimization We will monitor follow with recommendations cont with above upon d/c wounds healing overall improving (2) Sepsis Assessment & Plan: IV abx as per ID trend labs improving wounds unlikely etiology likely respiratory imaging noted and okay abnormal lft's stable PICC on Abx in ICU for desaturation CXR with consolidation cont with frequent suctioning d/c planning g j via GI daughter wants close attention to wounds and management to ensure healing Evidence of left lower lobe pneumonia, also previously demonstrated Gastrostomy in good position Mild diastasis of the rectus abdominis musculature again demonstrated Retrosacral decubitus changes, better depicted on prior exam which included the pelvis Small hiatal hernia with evidence of trace gastroesophageal reflux Discussed with GI. Recommend GJ family still pending decision transfuse prbc prn monitor h/h monitor bm LFTs improving trending down (3) Feeding by G-tube Assessment & Plan: DAILY ESTIMATED NEEDS: Needs based on Pulmonary, wounds, bedbound/ 61kg adj 25-30 kcals/kg 4214-3427 total kcals 1.25-2 g protein/kg 76-122 g total protein 25-30 mL/kg 3774-0914 total fluid mLs NUTRITION DIAGNOSIS: * Increased kcal/prot needs R/T wound healing as evidenced by BL buttocks and sacral wound photos, refer to WC eval. * Swallowing difficulty R/T respiratory status as evidenced by pt on T-collar, s/p G-J conversion CURRENT TF:Glucerna 1.5 @ 50ml/hr x 24 hrs ENTERAL NUTRITION RECOMMENDATIONS: Glucerna 1.5 @ 50ml/hr x 24 hrs to provide 1200ml, 1800 kcal, 99g pro, 911ml free H2O - Maintain at current rate as tolerated to meet 100% est needs - HOB over 30 degrees - INCREASE water flush of 170ml q 6 hrs ADDITIONAL RECOMMENDATIONS: 1) RE-calibrate bedscale wt: fluctuating daily wts (108#-136# last 6 days) 2) Wound healing: Add Cristian 1pkt BID w/ continued good TF tolerance. 3) Increase water flushes, monitor for signs of water deficits 4) Monitor BGs closely, need for NISS -> now w/ improved BGs 5) Monitor for continued good TF tolerance 6) Monitor K : elev K on 03/25, s/p Kdur BID, now dc'ed. (4) Chronic vegetative state Assessment & Plan: incontinence of urine and stool. can soil dressings. nurses doing great job with monitoring and changing prn (5) Leukocytosis Walter Madera Apr 10, 2019 10:51
--- NOTE | 2019-04-10 11:49 | Nephrology Progress Note ---
Assessment/Plan Problem List: (1) Acute renal failure (ARF) Assessment: Cr stable (2) Chronic respiratory failure (3) Anemia (4) Sepsis Assessment Acute renal failure Respiratory failure - Trach Low Mag- Low k , Low Na Anemia UTI / Sepsis Proteinuria / HypoAlbuminemia high Trigs Sz decubs bed bound DNR Plan Transfused previously now has JT bolus Albumin as needed K and Mag and Phos supplement as needed Hydrate as needed Urine studies avoid Nephrotoxics mag K Phos supplements as needed monitor renal parameters Subjective ROS Limited/Unobtainable: Yes Objective Objective Last 24 Hour Vital Signs Date Time Temp Pulse Resp B/P (MAP) Pulse Ox O2 Delivery O2 Flow Rate FiO2 04/10/19 11:00 113 24 135/60 (85) 100 04/10/19 10:51 92 28 100 T-Piece 5.0 28 96 26 100 04/10/19 10:00 93 29 145/63 (90) 99 04/10/19 09:00 96 31 145/66 (92) 99 04/10/19 08:09 5.0 28 04/10/19 08:00 99.2 104 32 134/52 (79) 100 04/10/19 08:00 T-piece 5.0 T-piece 5.0 04/10/19 08:00 106 04/10/19 07:00 105 29 136/51 (79) 100 04/10/19 06:55 104 24 100 T-Piece 5.0 28 103 26 100 04/10/19 06:45 100 T-Piece 5.0 28 04/10/19 06:00 115 26 149/60 (89) 98 04/10/19 05:00 115 27 130/55 (80) 98 04/10/19 04:02 98 21 100 T-Piece 5.0 28 96 26 100 04/10/19 04:00 78 04/10/19 04:00 98.9 95 27 119/49 (72) 100 04/10/19 04:00 T-piece 5.0 T-piece 5.0 04/10/19 04:00 5.0 28 04/10/19 03:00 100 34 113/50 (71) 98 04/10/19 02:00 95 26 112/52 (72) 99 04/10/19 01:41 100 T-Piece 5.0 28 04/10/19 01:00 93 27 106/47 (66) 96 04/10/19 00:00 T-piece 5.0 T-piece 5.0 04/10/19 00:00 99.3 89 27 110/51 (70) 100 04/10/19 00:00 5.0 28 04/10/19 00:00 80 04/09/19 23:59 101 24 100 T-Piece 5.0 28 98 22 99 04/09/19 23:00 91 24 118/47 (70) 97 04/09/19 22:00 T-piece 5.0 T-piece 5.0 04/09/19 22:00 82 22 120/52 (74) 99 04/09/19 21:00 86 24 116/47 (70) 98 04/09/19 20:00 99.2 86 24 112/43 (66) 97 04/09/19 20:00 5.0 28 04/09/19 20:00 T-piece 5.0 T-piece 5.0 04/09/19 20:00 90 04/09/19 19:33 92 21 100 T-Piece 5.0 28 95 22 100 04/09/19 19:33 100 T-Piece 5.0 28 04/09/19 19:00 81 24 115/46 (69) 100 04/09/19 18:00 82 24 96/44 (61) 99 04/09/19 17:00 82 23 113/47 (69) 99 04/09/19 16:00 5.0 28 04/09/19 16:00 T-piece 5.0 T-piece 5.0 04/09/19 16:00 85 04/09/19 16:00 98.8 91 24 118/48 (71) 100 04/09/19 15:00 85 22 112/45 (67) 100 04/09/19 14:00 93 25 115/51 (72) 100 04/09/19 13:00 82 23 130/49 (76) 98 04/09/19 12:30 99 T-Piece 5.0 28 04/09/19 12:00 5.0 28 04/09/19 12:00 T-piece 5.0 T-piece 5.0 04/09/19 12:00 98.8 80 23 112/43 (66) 100 1/9/20 12:00 80 Intake and Output 04/09/19 04/10/19 19:00 07:00 Intake Total 1230 ml 1005 ml Output Total 735 ml 1125 ml Balance 495 ml -120 ml Free Water 225 ml 75 ml Tube Feeding 780 ml 780 ml Other 225 ml 150 ml Output Urine Total 435 ml 525 ml Gastric Drainage Total 300 ml 600 ml Laboratory Tests 04/10/19 04:00: White Blood Count 12.0H, Red Blood Count 3.95L, Hemoglobin 11.6L, Hematocrit 35.8L, Mean Corpuscular Volume 91, Mean Corpuscular Hemoglobin 29.5, Mean Corpuscular Hemoglobin Concent 32.6, Red Cell Distribution Width 15.5H, Platelet Count 198, Mean Platelet Volume 5.6L, Neutrophils (%) (Auto) 75.4H, Lymphocytes (%) (Auto) 17.4L, Monocytes (%) (Auto) 4.9, Eosinophils (%) (Auto) 1.9, Basophils (%) (Auto) 0.4, Sodium Level 142, Potassium Level 3.5, Chloride Level 103, Carbon Dioxide Level 29, Anion Gap 10, Blood Urea Nitrogen 63H, Creatinine 1.1, Estimat Glomerular Filtration Rate , Glucose Level 136H, Calcium Level 8.8, Magnesium Level 2.2, Total Bilirubin 0.2, Aspartate Amino Transf (AST/SGOT) 54H, Alanine Aminotransferase (ALT/SGPT) 83H, Alkaline Phosphatase 174H, Total Protein 8.6H, Albumin 3.0L, Globulin 5.6, Albumin/ Globulin Ratio 0.5L Height (Feet): 5 Height (Inches): 3.00 Weight (Pounds): 105 General Appearance: no apparent distress EENT: other - trach to O2 tube Cardiovascular: tachycardia Respiratory/Chest: decreased breath sounds Abdomen: distended Objective no change Eric Cortez MD Apr 10, 2019 11:49
--- NOTE | 2019-04-10 12:25 | Infectious Diseases Prog Note ---
Assessment/Plan Assessment/Plan A 1. Providencia & Klebsiella pneumonia treated 2. respiratory failure 3. hypertension 4. CVA 5. dementia 6. sacral decubitus ulcer 7. rectal VRE colonization 8. Anemia 9. Proteus UTI 10. Acute renal failure 11. Leukocytosis resolved P 1.Observe off antibiotic 2. Frequent suctioning 3. Remove PICC line before discharge Subjective ROS Limited/Unobtainable: Yes Constitutional: Denies: fever Allergies: Coded Allergies: CODEINE (Verified Allergy, Unknown, HIVES, 09/15/09) Objective Vital Signs Last 24 Hour Vital Signs Date Time Temp Pulse Resp B/P (MAP) Pulse Ox O2 Delivery O2 Flow Rate FiO2 04/10/19 12:00 5.0 28 04/10/19 11:00 113 24 135/60 (85) 100 04/10/19 10:51 92 28 100 T-Piece 5.0 28 96 26 100 04/10/19 10:00 93 29 145/63 (90) 99 04/10/19 09:00 96 31 145/66 (92) 99 04/10/19 08:09 5.0 28 04/10/19 08:00 99.2 104 32 134/52 (79) 100 04/10/19 08:00 T-piece 5.0 T-piece 5.0 04/10/19 08:00 106 04/10/19 07:00 105 29 136/51 (79) 100 04/10/19 06:55 104 24 100 T-Piece 5.0 28 103 26 100 04/10/19 06:45 100 T-Piece 5.0 28 04/10/19 06:00 115 26 149/60 (89) 98 04/10/19 05:00 115 27 130/55 (80) 98 04/10/19 04:02 98 21 100 T-Piece 5.0 28 96 26 100 04/10/19 04:00 78 04/10/19 04:00 98.9 95 27 119/49 (72) 100 04/10/19 04:00 T-piece 5.0 T-piece 5.0 04/10/19 04:00 5.0 28 04/10/19 03:00 100 34 113/50 (71) 98 04/10/19 02:00 95 26 112/52 (72) 99 1/10/20 01:41 100 T-Piece 5.0 28 04/10/19 01:00 93 27 106/47 (66) 96 04/10/19 00:00 T-piece 5.0 T-piece 5.0 04/10/19 00:00 99.3 89 27 110/51 (70) 100 04/10/19 00:00 5.0 28 04/10/19 00:00 80 04/09/19 23:59 101 24 100 T-Piece 5.0 28 98 22 99 04/09/19 23:00 91 24 118/47 (70) 97 04/09/19 22:00 T-piece 5.0 T-piece 5.0 04/09/19 22:00 82 22 120/52 (74) 99 04/09/19 21:00 86 24 116/47 (70) 98 04/09/19 20:00 99.2 86 24 112/43 (66) 97 04/09/19 20:00 5.0 28 04/09/19 20:00 T-piece 5.0 T-piece 5.0 04/09/19 20:00 90 04/09/19 19:33 92 21 100 T-Piece 5.0 28 95 22 100 04/09/19 19:33 100 T-Piece 5.0 28 04/09/19 19:00 81 24 115/46 (69) 100 04/09/19 18:00 82 24 96/44 (61) 99 04/09/19 17:00 82 23 113/47 (69) 99 04/09/19 16:00 5.0 28 04/09/19 16:00 T-piece 5.0 T-piece 5.0 04/09/19 16:00 85 04/09/19 16:00 98.8 91 24 118/48 (71) 100 04/09/19 15:00 85 22 112/45 (67) 100 04/09/19 14:00 93 25 115/51 (72) 100 04/09/19 13:00 82 23 130/49 (76) 98 04/09/19 12:30 99 T-Piece 5.0 28 Height (Feet): 5 Height (Inches): 3.00 Weight (Pounds): 105 HEENT: status post trach Respiratory/Chest: lungs clear, other - on T bar Cardiovascular: tachycardia, other - R arm PICC line Abdomen: soft, non tender, other - GT feeding Extremities: other - trace edema Neurologic/Psychiatric: unresponsiveness, aphasia Laboratory Tests Test 04/10/19 04:00 White Blood Count 12.0 K/UL (4.8-10.8) H Red Blood Count 3.95 M/UL (4.20-5.40) L Hemoglobin 11.6 G/DL (12.0-16.0) L Hematocrit 35.8 % (37.0-47.0) L Mean Corpuscular Volume 91 FL (80-99) Mean Corpuscular Hemoglobin 29.5 PG (27.0-31.0) Mean Corpuscular Hemoglobin Concent 32.6 G/DL (32.0-36.0) Red Cell Distribution Width 15.5 % (11.6-14.8) H Platelet Count 198 K/UL (150-450) Mean Platelet Volume 5.6 FL (6.5-10.1) L Neutrophils (%) (Auto) 75.4 % (45.0-75.0) H Lymphocytes (%) (Auto) 17.4 % (20.0-45.0) L Monocytes (%) (Auto) 4.9 % (1.0-10.0) Eosinophils (%) (Auto) 1.9 % (0.0-3.0) Basophils (%) (Auto) 0.4 % (0.0-2.0) Sodium Level 142 MMOL/L (136-145) Potassium Level 3.5 MMOL/L (3.5-5.1) Chloride Level 103 MMOL/L (98-107) Carbon Dioxide Level 29 MMOL/L (21-32) Anion Gap 10 mmol/L (5-15) Blood Urea Nitrogen 63 mg/dL (7-18) H Creatinine 1.1 MG/DL (0.55-1.30) Estimat Glomerular Filtration Rate mL/min (>60) Glucose Level 136 MG/DL (74-106) H Calcium Level 8.8 MG/DL (8.5-10.1) Magnesium Level 2.2 MG/DL (1.8-2.4) Total Bilirubin 0.2 MG/DL (0.2-1.0) Aspartate Amino Transf (AST/SGOT) 54 U/L (15-37) H Alanine Aminotransferase (ALT/SGPT) 83 U/L (12-78) H Alkaline Phosphatase 174 U/L (46-116) H Total Protein 8.6 G/DL (6.4-8.2) H Albumin 3.0 G/DL (3.4-5.0) L Globulin 5.6 g/dL Albumin/Globulin Ratio 0.5 (1.0-2.7) L Current Medications Medications (Trade) Dose Ordered Sig/Maicol Route PRN Reason Start Time Stop Time Status Last Admin Dose Admin Acetaminophen (Tylenol) 650 mg Q6H PRN GT Mild Pain/Temp > 100.5 03/23/19 15:15 04/22/19 15:14 04/09/19 21:07 Albuterol/ Ipratropium (Albuterol/ Ipratropium) 3 ml Q4HRT HHN 04/10/19 03:00 04/15/19 02:59 04/10/19 10:41 Atropine Sulfate (Atropine Opth Adriana) 1 drop THREE TIMES A DAY SL 04/08/19 09:00 05/07/19 20:59 04/10/19 09:34 Chlorhexidine Gluconate (Cesilia-Hex 2%) 1 applic DAILY@2000 TOPIC 03/12/19 20:00 04/11/19 19:59 04/09/19 20:00 Folic Acid (Folate) 1 mg DAILY GT 04/08/19 09:00 05/08/19 08:59 04/10/19 09:34 Heparin Sodium (Porcine) (Heparin 5000 units/ml) 5,000 units EVERY 12 HOURS SUBQ 04/01/19 10:00 05/01/19 09:59 04/10/19 09:37 Hydralazine HCl (Apresoline) 25 mg Q6H PRN ORAL SBP above 150 04/06/19 02:45 05/06/19 02:44 04/06/19 11:15 Lansoprazole (Prevacid) 30 mg Q12HR GT 03/29/19 09:00 04/24/19 20:59 04/10/19 09:34 Levetiracetam (Keppra) 750 mg Q12HR GT 04/07/19 21:00 05/07/19 20:59 04/10/19 09:33 Ondansetron HCl (Zofran) 4 mg Q4H PRN IVP Nausea & Vomiting 03/18/19 18:15 04/17/19 18:14 03/21/19 08:27 Sorbitol (Sorbitol) 60 ml EVERY 8 HOURS GT 04/09/19 22:00 05/09/19 21:59 04/10/19 05:41 Chauncey Liriano MD Apr 10, 2019 12:25
--- NOTE | 2019-04-10 12:45 | NUR ---
DATA TECHNICAL LEADDIGITAL TRAFFIC COORDINATOR SI: RESP FAILURE TRACH/COOL AEROSOL 99.2 106 32 132/52 100% T-PIECE FLOW RATE 5.0; FiO2 28 BUN 63 BG 136 AST/ALT 54/83 ALK-PHOS 174 WBC 12.0 H/H 11.6/35.8 IS: KEPPRA GT BID FOLATE GT QD HEPARIN SQ BID PREVACID GT BID ALBUTEROL HHN Q4HR ICU STATUS
--- NOTE | 2019-04-10 12:45 | NUR ---
NURSE NOTES: Wound care provided on left hand between the thumb and index finger. wound is pink and red with no swelling or exudate around the border, cleaned with NS and covered with Silvadene and alginate, re enforced with abdominal pad and wrapped with Kerlex. Another brown liquid bowel movement, sacral healed wounds provided care and covered with Calazime and Optifoam,
--- NOTE | 2019-04-10 14:26 | NUR ---
RD ASSESSMENT & RECOMMENDATIONS SEE CARE ACTIVITY FOR COMPLETE ASSESSMENT DAILY ESTIMATED NEEDS: Needs based on Pulmonary, wounds, bedbound/ 61kg adj 25-30 kcals/kg 2156-1167 total kcals 1.25-2 g protein/kg 76-122 g total protein 25-30 mL/kg 5293-9953 total fluid mLs NUTRITION DIAGNOSIS: * Increased kcal/prot needs R/T wound healing as evidenced by BL buttocks and sacral wound photos, refer to WC eval-> wounds resolving, sacrum healed. * Swallowing difficulty R/T respiratory status as evidenced by pt on T-collar, s/p G-J conversion CURRENT TF:Vital AF 1.2 @ 60ml/hr x 24 hrs ENTERAL NUTRITION RECOMMENDATIONS: VITAL AF 1.2 @ 60ml/hr x 24 hrs to provide 1440ml, 1728kcal, 108g prot, 1167ml free water - Maintain current TF -> meets 100% est needs - HOB over 30 degrees - increase water flushes (BUN trend up) ADDITIONAL RECOMMENDATIONS: 1) RE-calibrate bedscale wt: fluctuating daily wts (120 119 112 124#) 2) Wound healing: Cristian BID for skin integrity 3) Monitor BGs closely, need for NISS -> now w/ improved BGs 4) Monitor for continued good TF tolerance 5) BUN trending up -> rec to increase water flushes . .
--- NOTE | 2019-04-10 14:30 | NUR ---
NURSE NOTES:WOUND CARE FOLLOW-UP NOTES:Wound in web space of L index and L thumb reassessed. Hypergranulation has resolved. 20% fibrinous slough removed with gentle friction. Base of wound is beefy . Edges adherent and flat. No odor noted. Small amt serous exudate noted. Periwound without erythema or evidence of further skin breakdown. Wound cleansed with saline. New Tx order obtained from for Silvasorb gel with Calcium Alginate every other day. and PRN. Tx applied as ordered. ABD pad applied and wrapped with Kerlix. In addition Rolled Kerlix placed in pt's hand as makeshift support for hand to prevent further hand contracture. R and L ischial tuberosity wounds are resolved . Areas of scarring with hyperpigmentation noted to R and L ischium and sacrum. Both heels are blanchable. All wound prevention protocols continued as care-planned. Tx.Plan: Cleanse wound L hand with Saline. Apply Silvasorb Gel. Apply Calcium Alginate to wound. Apply Cavilon Skin Barrier Periwound. Cover with folded ABD Pad. Wrap with Kerlix gauze weaving between digits of L hand to keep hand open Every Other Day and PRN. Apply Moisture Barrier Paste to Sacrum, R and L Ischium. Cover each site with Optifoam drsg. Change every 3 days and prn. Apply Cavilon Skin Barrier to both heels and Malleoli. Cover each site with Optifoam drsg. Change every 7 days and prn APM/[employer] Mattress overlay Reposition at least every 2hours or as tolerated. Off-load heels with pillow.
--- NOTE | 2019-04-10 15:59 | General Progress Note ---
Assessment/Plan Problem List: (1) Seizure ICD Codes: R56.9 - Unspecified convulsions SNOMED: 28384463 (2) Anemia ICD Codes: D64.9 - Anemia, unspecified SNOMED: 565685978 Qualifiers: Qualified Codes: D64.9 - Anemia, unspecified (3) Sepsis ICD Codes: A41.9 - Sepsis, unspecified organism SNOMED: 10178777, 733742664 Qualifiers: Qualified Codes: A41.9 - Sepsis, unspecified organism (4) Respiratory failure with hypoxia ICD Codes: J96.91 - Respiratory failure, unspecified with hypoxia SNOMED: 43296180397006953 Qualifiers: Qualified Codes: J96.21 - Acute and chronic respiratory failure with hypoxia (5) HCAP (healthcare-associated pneumonia) ICD Codes: J18.9 - Pneumonia, unspecified organism SNOMED: 013925387, 528279133 (6) Sacral decubitus ulcer ICD Codes: L89.159 - Pressure ulcer of sacral region, unspecified stage SNOMED: 857339418 (7) HTN (hypertension) ICD Codes: I10 - Essential (primary) hypertension SNOMED: 51966386 (8) Chronic vegetative state ICD Codes: R40.3 - Persistent vegetative state SNOMED: 38540194 (9) Chronic respiratory failure ICD Codes: J96.10 - Chronic respiratory failure, unspecified whether with hypoxia or hypercapnia SNOMED: 98610658 (10) Limited mobility ICD Codes: Z74.09 - Other reduced mobility SNOMED: 6135290 Status: stable, progressing Assessment/Plan: vent as needed resp rx suctioning j tube feeds g port to gravity skin care sz rx monitor lfts- going up bowel regime dc planning Subjective ROS Limited/Unobtainable: Yes Constitutional: Reports: malaise, weakness HEENT: Reports: no symptoms Cardiovascular: Reports: no symptoms Respiratory: Reports: cough, sputum Gastrointestinal/Abdominal: Reports: constipated Genitourinary: Reports: no symptoms Neurologic/Psychiatric: Reports: no symptoms Endocrine: Reports: no symptoms Hematologic/Lymphatic: Reports: no symptoms Allergies: Coded Allergies: CODEINE (Verified Allergy, Unknown, HIVES, 09/15/09) All Systems: reviewed and negative except above Subjective no events. no reports of bleeding. tolerating feeds, no vomiting. minimal secretions. no szs Objective Last 24 Hour Vital Signs Date Time Temp Pulse Resp B/P (MAP) Pulse Ox O2 Delivery O2 Flow Rate FiO2 04/10/19 15:00 91 23 138/60 (86) 98 04/10/19 14:46 89 24 100 T-Piece 5.0 28 94 26 100 04/10/19 14:00 90 25 145/55 (85) 100 04/10/19 13:00 96 30 142/66 (91) 100 04/10/19 12:31 100 T-Piece 5.0 28 04/10/19 12:00 99.4 86 28 130/61 (84) 100 04/10/19 12:00 93 04/10/19 12:00 5.0 28 04/10/19 12:00 T-piece 5.0 T-piece 5.0 04/10/19 11:00 113 24 135/60 (85) 100 04/10/19 10:51 92 28 100 T-Piece 5.0 28 96 26 100 04/10/19 10:00 93 29 145/63 (90) 99 04/10/19 09:00 96 31 145/66 (92) 99 04/10/19 08:09 5.0 28 04/10/19 08:00 99.2 104 32 134/52 (79) 100 04/10/19 08:00 T-piece 5.0 T-piece 5.0 04/10/19 08:00 106 04/10/19 07:00 105 29 136/51 (79) 100 04/10/19 06:55 104 24 100 T-Piece 5.0 28 103 26 100 04/10/19 06:45 100 T-Piece 5.0 28 04/10/19 06:00 115 26 149/60 (89) 98 04/10/19 05:00 115 27 130/55 (80) 98 04/10/19 04:02 98 21 100 T-Piece 5.0 28 96 26 100 04/10/19 04:00 78 04/10/19 04:00 98.9 95 27 119/49 (72) 100 04/10/19 04:00 T-piece 5.0 T-piece 5.0 04/10/19 04:00 5.0 28 04/10/19 03:00 100 34 113/50 (71) 98 04/10/19 02:00 95 26 112/52 (72) 99 04/10/19 01:41 100 T-Piece 5.0 28 04/10/19 01:00 93 27 106/47 (66) 96 04/10/19 00:00 T-piece 5.0 T-piece 5.0 04/10/19 00:00 99.3 89 27 110/51 (70) 100 04/10/19 00:00 5.0 28 04/10/19 00:00 80 04/09/19 23:59 101 24 100 T-Piece 5.0 28 98 22 99 04/09/19 23:00 91 24 118/47 (70) 97 04/09/19 22:00 T-piece 5.0 T-piece 5.0 04/09/19 22:00 82 22 120/52 (74) 99 04/09/19 21:00 86 24 116/47 (70) 98 04/09/19 20:00 99.2 86 24 112/43 (66) 97 04/09/19 20:00 5.0 28 04/09/19 20:00 T-piece 5.0 T-piece 5.0 04/09/19 20:00 90 04/09/19 19:33 92 21 100 T-Piece 5.0 28 95 22 100 04/09/19 19:33 100 T-Piece 5.0 28 04/09/19 19:00 81 24 115/46 (69) 100 04/09/19 18:00 82 24 96/44 (61) 99 04/09/19 17:00 82 23 113/47 (69) 99 04/09/19 16:00 5.0 28 04/09/19 16:00 T-piece 5.0 T-piece 5.0 04/09/19 16:00 85 04/09/19 16:00 98.8 91 24 118/48 (71) 100 Intake and Output 04/09/19 04/10/19 19:00 07:00 Intake Total 1230 ml 1005 ml Output Total 735 ml 1125 ml Balance 495 ml -120 ml Free Water 225 ml 75 ml Tube Feeding 780 ml 780 ml Other 225 ml 150 ml Output Urine Total 435 ml 525 ml Gastric Drainage Total 300 ml 600 ml Laboratory Tests 04/10/19 04:00: White Blood Count 12.0H, Red Blood Count 3.95L, Hemoglobin 11.6L, Hematocrit 35.8L, Mean Corpuscular Volume 91, Mean Corpuscular Hemoglobin 29.5, Mean Corpuscular Hemoglobin Concent 32.6, Red Cell Distribution Width 15.5H, Platelet Count 198, Mean Platelet Volume 5.6L, Neutrophils (%) (Auto) 75.4H, Lymphocytes (%) (Auto) 17.4L, Monocytes (%) (Auto) 4.9, Eosinophils (%) (Auto) 1.9, Basophils (%) (Auto) 0.4, Sodium Level 142, Potassium Level 3.5, Chloride Level 103, Carbon Dioxide Level 29, Anion Gap 10, Blood Urea Nitrogen 63H, Creatinine 1.1, Estimat Glomerular Filtration Rate , Glucose Level 136H, Calcium Level 8.8, Magnesium Level 2.2, Total Bilirubin 0.2, Aspartate Amino Transf (AST/SGOT) 54H, Alanine Aminotransferase (ALT/SGPT) 83H, Alkaline Phosphatase 174H, Total Protein 8.6H, Albumin 3.0L, Globulin 5.6, Albumin/ Globulin Ratio 0.5L Height (Feet): 5 Height (Inches): 3.00 Weight (Pounds): 105 Objective General Appearance: WD/WN, confused. on trach collar Neck: supple Cardiovascular: normal rate, regular rhythm Respiratory/Chest: chest wall non-tender, rhonchi - bilaterally(minimal) Abdomen: normal bowel sounds, non tender, soft, no organomegaly Edema: no edema noted Arm (L), no edema noted Arm (R), no edema noted Leg (L), no edema noted Leg (R), no edema noted Pedal (L), no edema noted Pedal (R), no edema noted Generalized Neurologic: disoriented, unresponsive, aphasia Irvin Beltrán MD Apr 10, 2019 15:59
--- NOTE | 2019-04-10 16:21 | NUR ---
NURSE NOTES: Order to be placed for wound care of the left hand for Dr. Madera, region between thumb and index finger,
--- NOTE | 2019-04-10 16:31 | NUR ---
HAND-OFF: Report given to JEANNINE Robertson.
--- NOTE | 2019-04-10 16:32 | NUR ---
NURSE NOTES: Received patient from Bg PAEZ. Patient is awake, opens eyes spontaneously, non-verbal. Sinus Rhythm on the monitor, HR 90. Receiving oxygen via T-piece, Shiley 6 FiO2 28%/5L. G-tube/J-tube in intact, G-tube is receiving Vital AF at 65cc/hr, J-tube is draining by gravity. Purewick is intact and draining. IV site is Right Upper Arm PICC, intact and asymptomatic. Bed is locked, placed in lowest position, side rails up x3, side rails padded, bed alarm on, head of bed elevated, call light within reach. Will continue to monitor.
--- NOTE | 2019-04-10 16:47 | NUR ---
NURSE NOTES: Left message to Dr. Vaughan's office regarding request for Cristian BID.
--- NOTE | 2019-04-10 17:48 | General Progress Note ---
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 - Elevated glucose - elevated BUN/Cr - poor Prognosis Recommendations - reduce laxatives - increase free water and re check BUN/Cr - Cristian BID - antibiotic ointment to GJT site PRN - aspiration precautions - elevate HOB - Vital AF 1.2 - check q 6 hour FS - transfuse to keep Hg > 7 - J tube feeds - G tube drain Subjective Allergies: Coded Allergies: CODEINE (Verified Allergy, Unknown, HIVES, 09/15/09) Subjective above noted tolerating TF via J port d/w RN (++) BM with laxatives RD comments noted d/w RN: - Cristian BID - increased GJ tube water flushes to 200 cc q 4 hours --> monitor BUN/Cr Objective Last 24 Hour Vital Signs Date Time Temp Pulse Resp B/P (MAP) Pulse Ox O2 Delivery O2 Flow Rate FiO2 04/10/19 17:00 90 26 115/57 (76) 97 04/10/19 16:00 91 04/10/19 16:00 T-piece 5.0 T-piece 5.0 04/10/19 16:00 5.0 28 04/10/19 16:00 98.4 90 24 128/56 (80) 98 04/10/19 15:00 91 23 138/60 (86) 98 04/10/19 14:46 89 24 100 T-Piece 5.0 28 94 26 100 04/10/19 14:00 90 25 145/55 (85) 100 04/10/19 13:00 96 30 142/66 (91) 100 04/10/19 12:31 100 T-Piece 5.0 28 04/10/19 12:00 99.4 86 28 130/61 (84) 100 04/10/19 12:00 93 04/10/19 12:00 5.0 28 04/10/19 12:00 T-piece 5.0 T-piece 5.0 04/10/19 11:00 113 24 135/60 (85) 100 04/10/19 10:51 92 28 100 T-Piece 5.0 28 96 26 100 04/10/19 10:00 93 29 145/63 (90) 99 04/10/19 09:00 96 31 145/66 (92) 99 04/10/19 08:09 5.0 28 04/10/19 08:00 99.2 104 32 134/52 (79) 100 04/10/19 08:00 T-piece 5.0 T-piece 5.0 04/10/19 08:00 106 04/10/19 07:00 105 29 136/51 (79) 100 04/10/19 06:55 104 24 100 T-Piece 5.0 28 103 26 100 04/10/19 06:45 100 T-Piece 5.0 28 04/10/19 06:00 115 26 149/60 (89) 98 04/10/19 05:00 115 27 130/55 (80) 98 04/10/19 04:02 98 21 100 T-Piece 5.0 28 96 26 100 04/10/19 04:00 78 04/10/19 04:00 98.9 95 27 119/49 (72) 100 04/10/19 04:00 T-piece 5.0 T-piece 5.0 04/10/19 04:00 5.0 28 04/10/19 03:00 100 34 113/50 (71) 98 04/10/19 02:00 95 26 112/52 (72) 99 04/10/19 01:41 100 T-Piece 5.0 28 04/10/19 01:00 93 27 106/47 (66) 96 04/10/19 00:00 T-piece 5.0 T-piece 5.0 04/10/19 00:00 99.3 89 27 110/51 (70) 100 04/10/19 00:00 5.0 28 04/10/19 00:00 80 04/09/19 23:59 101 24 100 T-Piece 5.0 28 98 22 99 04/09/19 23:00 91 24 118/47 (70) 97 04/09/19 22:00 T-piece 5.0 T-piece 5.0 04/09/19 22:00 82 22 120/52 (74) 99 04/09/19 21:00 86 24 116/47 (70) 98 04/09/19 20:00 99.2 86 24 112/43 (66) 97 04/09/19 20:00 5.0 28 04/09/19 20:00 T-piece 5.0 T-piece 5.0 04/09/19 20:00 90 04/09/19 19:33 92 21 100 T-Piece 5.0 28 95 22 100 04/09/19 19:33 100 T-Piece 5.0 28 04/09/19 19:00 81 24 115/46 (69) 100 04/09/19 18:00 82 24 96/44 (61) 99 Intake and Output 04/09/19 04/10/19 19:00 07:00 Intake Total 1230 ml 1005 ml Output Total 735 ml 1125 ml Balance 495 ml -120 ml Free Water 225 ml 75 ml Tube Feeding 780 ml 780 ml Other 225 ml 150 ml Output Urine Total 435 ml 525 ml Gastric Drainage Total 300 ml 600 ml Laboratory Tests 04/10/19 04:00: White Blood Count 12.0H, Red Blood Count 3.95L, Hemoglobin 11.6L, Hematocrit 35.8L, Mean Corpuscular Volume 91, Mean Corpuscular Hemoglobin 29.5, Mean Corpuscular Hemoglobin Concent 32.6, Red Cell Distribution Width 15.5H, Platelet Count 198, Mean Platelet Volume 5.6L, Neutrophils (%) (Auto) 75.4H, Lymphocytes (%) (Auto) 17.4L, Monocytes (%) (Auto) 4.9, Eosinophils (%) (Auto) 1.9, Basophils (%) (Auto) 0.4, Sodium Level 142, Potassium Level 3.5, Chloride Level 103, Carbon Dioxide Level 29, Anion Gap 10, Blood Urea Nitrogen 63H, Creatinine 1.1, Estimat Glomerular Filtration Rate , Glucose Level 136H, Calcium Level 8.8, Magnesium Level 2.2, Total Bilirubin 0.2, Aspartate Amino Transf (AST/SGOT) 54H, Alanine Aminotransferase (ALT/SGPT) 83H, Alkaline Phosphatase 174H, Total Protein 8.6H, Albumin 3.0L, Globulin 5.6, Albumin/ Globulin Ratio 0.5L Height (Feet): 5 Height (Inches): 3.00 Weight (Pounds): 105 Objective Debilitated AA woman non-verbal, obtunded NCAT (+) trach coarse BS RR obese abd, (+) GJT no edema (+) contractured extremities Celio Vaughan MD Apr 10, 2019 17:48
--- NOTE | 2019-04-10 18:26 | NUR ---
NURSE NOTES: Patient seen and assessed by Dr. Vaughan, orders received. Oral care given to patient, turned and repositioned. Patient showing no signs of distress. Will continue to monitor.
--- NOTE | 2019-04-10 19:10 | NUR ---
NURSE NOTES: Pt report received from JESSICA [employer] WORK[employer]. pt remains stable. pt is obtunded neuro [place]. pt is on compliance monitor showing NSR, no cardiac distress noted. pt is on T piece satting at 100%, no acute resp distress noted. pt bed is low, locked, armed, bed rails up times 3, call light within reach. will follow plan of care.
--- NOTE | 2019-04-10 19:33 | NUR ---
HAND-OFF: Report given to Gage PAEZ.
[2019-04-10] MEDS: Dyna-Hex 2% Top Sol 2oz TOPIC SCH (20:13)
[2019-04-11] VITALS (31 sets, daily range): BP systolic 98–137; BP diastolic 45–61
--- NOTE | 2019-04-11 01:00 | Progress Note ---
DATE: 04/10/2019 CARDIOLOGY PROGRESS NOTE SUBJECTIVE: No new events. No bleeding. No vomiting ____ sustained cardiac arrhythmias with monitored rhythm sinus. OBJECTIVE: VITAL SIGNS: Blood pressure 138/60, pulse 91, respiratory rate 23. LUNGS: Few rhonchi. Thin trach secretions. CARDIAC: Regular rhythm and rate. Normal S1 and S2. ABDOMEN: Soft. GJ tube intact. EXTREMITIES: Trace dependent edema. LABORATORY DATA: White count 12 and hemoglobin 11.6. Sodium 142, potassium 3.5, bicarb 29, BUN 63, creatinine 1.1, and albumin 3. IMPRESSION: 1. Increasing prerenal azotemia. 2. Borderline hypokalemia. 3. Respiratory failure. 4. Chronic diastolic congestive heart failure. PLAN: 1. Additional volume support. 2. Decreased sorbitol dosing. 3. Follow up laboratory studies. Bg Hagen M.D. DR: GRACE JOB#: [id number] CC:
[2019-04-11] MEDS: Albuterol/Ipratropium 3ml neb HHN SCH ×6 (04:10→23:26)
[2019-04-11 05:35] LABS: BASOPHILS % (AUTO) 0.5 % (0.0-2.0); EOSINOPHILS % (AUTO) 2.5 % (0.0-3.0); HEMATOCRIT 34.3 % (37.0-47.0); HEMOGLOBIN 11.1 G/DL (12.0-16.0); LYMPHOCYTES % (AUTO) 30.9 % (20.0-45.0); MEAN CORPUSCULAR VOLUME 91 FL (80-99); MONOCYTES % (AUTO) 4.5 % (1.0-10.0); NEUTROPHILS % (AUTO) 61.7 % (45.0-75.0); PLATELET COUNT 220 K/UL (150-450); RED BLOOD COUNT 3.77 M/UL (4.20-5.40); RED CELL DISTRIBUTION WIDTH 15.8 % (11.6-14.8); WHITE BLOOD COUNT 9.9 K/UL (4.8-10.8)
[2019-04-11 05:51] LABS: ALANINE AMINOTRANSFERASE 94 U/L (12-78); ALBUMIN 2.9 G/DL (3.4-5.0); ALBUMIN/GLOBULIN RATIO 0.5 (1.0-2.7); ALKALINE PHOSPHATASE 169 U/L (46-116); ANION GAP 7 mmol/L (5-15); ASPARTATE AMINO TRANSFERASE 55 U/L (15-37); BILIRUBIN,TOTAL 0.2 MG/DL (0.2-1.0); BLOOD UREA NITROGEN 66 mg/dL (7-18); CALCIUM 8.9 MG/DL (8.5-10.1); CARBON DIOXIDE 30 MMOL/L (21-32); CHLORIDE 108 MMOL/L (98-107); CREATININE 1.2 MG/DL (0.55-1.30); POTASSIUM 4.1 MMOL/L (3.5-5.1); SODIUM 145 MMOL/L (136-145)
--- NOTE | 2019-04-11 07:19 | NUR ---
HAND-OFF: Report given to LEXA Wilder RN. Pt remains stable.
--- NOTE | 2019-04-11 07:20 | NUR ---
NURSE NOTES: Received patient from JEANNINE Almonte. patient showing no sign of acute distress. sputum noted on mouth. Oral and tracheal suction done at this time. Patient on trach to T-piece with 28% FiO2 at this time. Patient tolerating setting with SpO2 98%. Patient eyes open but does not trach or respond to voice. Patient has right upper arm PICC line that is patent, asymptomatic, and saline locked at this time. Patient has contracture at the elbow of bilateral arms and contracture straight of legs with foot drop. Patient has purewick in place for incontinence that is patent and functioning well at this time. Patient has gastrostomy/jejunostomy tube. Tube feeding of vital AF running at 65mL/hr through J tube and G tube set to drain per gravity. Sterile water flush ordered for every 4 hours in both tubes. Both patent and asymptomatic. Patient has sacral and bilateral hip old wound that are covered with optifoam and dressing dry and intact. patient has left hand necrotic wound that is covered with clean/dry dressing. patient bed in low position with bed alarm on and call light in reach at this time. Patient repositioned and oral care performed. Will continue to monitor.
--- NOTE | 2019-04-11 07:44 | Pulmonolgy Critical Care Note ---
Critical Care - Asmt/Plan Assessment/Plan: Pulmonary CCM Progress Note Assessment/Plan Impression: Sepsis syndrome Pneumonia, KPC VDRF, Trach, G tube, Hypertension, Cardiac disease, Dementia, Previous CVA, Seizure disorder, Respiratory failure with hypoxia, on TC Anemia Sacral ulcer renal cyst pulmonary congestion Plan respiratory care to continue as is, TC as tolerated atropine neb therapy SNF meds as is off vent as able and has been off for several day Oxygen as needed Monitor labs daily changes noted and reviewed feeds as tolerated monitor albumin levels and provide protein and nutrition elevate head aspiration precautions Patient is a DNR. No CPR. ICU care reviewed medications/laboratory data/nursing notes/ICU care reviewed in detail note reviewed and edited care discussed with RN and RT ICU time spent 45 minutes Subjective Allergies: Coded Allergies: CODEINE (Verified Allergy, Unknown, HIVES, 09/15/09) Subjective respiratory care noted congestion- improved with atropine ICU care reviewed supportive care noted and reviewed RT care reviewed overnight care noted findings reviewed and discussed in detail with nursing and RT seen earlier this am Objective Vital Signs Noted Objective WDWN NAD contracted off vent reduced breath sounds bilaterally with some rhonchi; no wheeze [id number] without MRG NABS nontender no HSM no CC minimal nonfocal nonverbal trach and gt reviewed and edited Laboratory Tests Noted Critical Care - Objective Last 24 Hour Vital Signs Date Time Temp Pulse Resp B/P (MAP) Pulse Ox O2 Delivery O2 Flow Rate FiO2 04/11/19 07:22 98 T-Piece 5.0 28 04/11/19 07:20 87 25 100 T-Piece 5.0 28 91 23 98 04/11/19 07:00 89 19 119/57 (77) 98 04/11/19 06:00 84 19 119/55 (76) 99 04/11/19 05:00 84 21 125/61 (82) 98 04/11/19 04:00 5.0 28 04/11/19 04:00 98.5 98 21 98/45 (62) 99 04/11/19 04:00 95 04/11/19 04:00 T-piece 5.0 T-piece 5.0 04/11/19 03:59 89 22 100 T-Piece 5.0 28 95 25 99 04/11/19 03:00 87 21 114/51 (72) 98 04/11/19 02:00 88 21 103/49 (67) 99 04/11/19 01:00 92 20 110/51 (70) 98 04/11/19 00:09 98 T-Piece 5.0 28 04/11/19 00:00 91 04/11/19 00:00 T-piece 5.0 T-piece 5.0 04/11/19 00:00 98.0 92 20 116/46 (69) 99 04/10/19 23:43 93 23 99 T-Piece 5.0 28 90 25 97 04/10/19 23:00 95 20 117/58 (77) 98 04/10/19 22:00 91 21 110/50 (70) 99 04/10/19 21:00 93 20 125/57 (79) 98 04/10/19 20:00 5.0 28 04/10/19 20:00 T-piece 5.0 T-piece 5.0 04/10/19 20:00 92 20 107/52 (70) 99 04/10/19 20:00 92 04/10/19 19:17 97 T-Piece 5.0 28 04/10/19 19:15 91 22 99 T-Piece 5.0 28 92 24 97 04/10/19 19:00 91 27 112/49 (70) 98 04/10/19 19:00 98.3 92 22 137/57 (83) 99 04/10/19 18:00 92 25 110/60 (77) 95 04/10/19 17:00 90 26 115/57 (76) 97 04/10/19 16:00 91 04/10/19 16:00 T-piece 5.0 T-piece 5.0 04/10/19 16:00 5.0 28 04/10/19 16:00 98.4 90 24 128/56 (80) 98 04/10/19 15:00 91 23 138/60 (86) 98 04/10/19 14:46 89 24 100 T-Piece 5.0 28 94 26 100 04/10/19 14:00 90 25 145/55 (85) 100 04/10/19 13:00 96 30 142/66 (91) 100 04/10/19 12:31 100 T-Piece 5.0 28 04/10/19 12:00 99.4 86 28 130/61 (84) 100 04/10/19 12:00 93 04/10/19 12:00 5.0 28 04/10/19 12:00 T-piece 5.0 T-piece 5.0 04/10/19 11:00 113 24 135/60 (85) 100 04/10/19 10:51 92 28 100 T-Piece 5.0 28 96 26 100 04/10/19 10:00 93 29 145/63 (90) 99 04/10/19 09:00 96 31 145/66 (92) 99 04/10/19 08:09 5.0 28 04/10/19 08:00 99.2 104 32 134/52 (79) 100 04/10/19 08:00 T-piece 5.0 T-piece 5.0 04/10/19 08:00 106 Accucheck: 134 Critical Care - Subjective ROS Limited/Unobtainable: No FI02: 28 Vent Support Mode: CPAP Vent Tidal Volume: 450 Sputum Amount: Small PEEP: 5.0 PIP: 19 Tube Feeding Amount: 65 I&O: Intake and Output 04/10/19 04/11/19 19:00 07:00 Intake Total 1065 ml 1080 ml Output Total 150 ml 600 ml Balance 915 ml 480 ml Free Water 185 ml 300 ml Tube Feeding 780 ml 780 ml Other 100 ml Output Urine Total 150 ml 600 ml # Bowel Movements 4 ET-Tube: 6.0 Bg Moffett MD Apr 11, 2019 07:44
[2019-04-11] MEDS: Heparin 5000 units/ml inj SUBQ SCH ×2 (08:56→21:26)
--- NOTE | 2019-04-11 10:00 | NUR ---
NURSE NOTES: Patient vital signs stable. No sign of acute distress. Patient continues to have oral and tracheal secretions. Patient oral and tracheal suction done at this time. Patient repositioned.
--- NOTE | 2019-04-11 10:32 | General Progress Note ---
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 - Elevated glucose - elevated BUN/Cr - poor Prognosis Recommendations - reduce laxatives - increase free water and re check BUN/Cr - Cristian BID - antibiotic ointment to GJT site PRN - aspiration precautions - elevate HOB - Vital AF 1.2 - check q 6 hour FS - transfuse to keep Hg > 7 - J tube feeds - G tube drain Subjective ROS Limited/Unobtainable: No Allergies: Coded Allergies: CODEINE (Verified Allergy, Unknown, HIVES, 09/15/09) Objective Last 24 Hour Vital Signs Date Time Temp Pulse Resp B/P (MAP) Pulse Ox O2 Delivery O2 Flow Rate FiO2 04/11/19 08:00 5.0 28 04/11/19 08:00 T-piece 5.0 T-piece 5.0 04/11/19 07:22 98 T-Piece 5.0 28 04/11/19 07:20 87 25 100 T-Piece 5.0 28 91 23 98 04/11/19 07:00 89 19 119/57 (77) 98 04/11/19 06:00 84 19 119/55 (76) 99 04/11/19 05:00 84 21 125/61 (82) 98 04/11/19 04:00 5.0 28 04/11/19 04:00 98.5 98 21 98/45 (62) 99 04/11/19 04:00 95 04/11/19 04:00 T-piece 5.0 T-piece 5.0 04/11/19 03:59 89 22 100 T-Piece 5.0 28 95 25 99 04/11/19 03:00 87 21 114/51 (72) 98 04/11/19 02:00 88 21 103/49 (67) 99 04/11/19 01:00 92 20 110/51 (70) 98 04/11/19 00:09 98 T-Piece 5.0 28 04/11/19 00:00 91 04/11/19 00:00 T-piece 5.0 T-piece 5.0 04/11/19 00:00 98.0 92 20 116/46 (69) 99 04/10/19 23:43 93 23 99 T-Piece 5.0 28 90 25 97 04/10/19 23:00 95 20 117/58 (77) 98 04/10/19 22:00 91 21 110/50 (70) 99 04/10/19 21:00 93 20 125/57 (79) 98 04/10/19 20:00 5.0 28 04/10/19 20:00 T-piece 5.0 T-piece 5.0 04/10/19 20:00 92 20 107/52 (70) 99 04/10/19 20:00 92 04/10/19 19:17 97 T-Piece 5.0 28 04/10/19 19:15 91 22 99 T-Piece 5.0 28 92 24 97 04/10/19 19:00 91 27 112/49 (70) 98 04/10/19 19:00 98.3 92 22 137/57 (83) 99 04/10/19 18:00 92 25 110/60 (77) 95 04/10/19 17:00 90 26 115/57 (76) 97 04/10/19 16:00 91 04/10/19 16:00 T-piece 5.0 T-piece 5.0 04/10/19 16:00 5.0 28 04/10/19 16:00 98.4 90 24 128/56 (80) 98 04/10/19 15:00 91 23 138/60 (86) 98 04/10/19 14:46 89 24 100 T-Piece 5.0 28 94 26 100 04/10/19 14:00 90 25 145/55 (85) 100 04/10/19 13:00 96 30 142/66 (91) 100 04/10/19 12:31 100 T-Piece 5.0 28 04/10/19 12:00 99.4 86 28 130/61 (84) 100 04/10/19 12:00 93 04/10/19 12:00 5.0 28 04/10/19 12:00 T-piece 5.0 T-piece 5.0 04/10/19 11:00 113 24 135/60 (85) 100 04/10/19 10:51 92 28 100 T-Piece 5.0 28 96 26 100 Intake and Output 04/10/19 04/11/19 19:00 07:00 Intake Total 1065 ml 1080 ml Output Total 150 ml 600 ml Balance 915 ml 480 ml Free Water 185 ml 300 ml Tube Feeding 780 ml 780 ml Other 100 ml Output Urine Total 150 ml 600 ml # Bowel Movements 4 Laboratory Tests 04/11/19 04:00: White Blood Count 9.9, Red Blood Count 3.77L, Hemoglobin 11.1L, Hematocrit 34.3L , Mean Corpuscular Volume 91, Mean Corpuscular Hemoglobin 29.5, Mean Corpuscular Hemoglobin Concent 32.4, Red Cell Distribution Width 15.8H, Platelet Count 220, Mean Platelet Volume 6.4L, Neutrophils (%) (Auto) 61.7, Lymphocytes (%) (Auto) 30.9, Monocytes (%) (Auto) 4.5, Eosinophils (%) (Auto) 2.5, Basophils (%) (Auto) 0.5, Sodium Level 145, Potassium Level 4.1, Chloride Level 108H, Carbon Dioxide Level 30, Anion Gap 7, Blood Urea Nitrogen 66H, Creatinine 1.2, Estimat Glomerular Filtration Rate , Glucose Level 135H, Calcium Level 8.9, Total Bilirubin 0.2, Aspartate Amino Transf (AST/SGOT) 55H, Alanine Aminotransferase (ALT/SGPT) 94H, Alkaline Phosphatase 169H, Total Protein 8.7H, Albumin 2.9L, Globulin 5.8, Albumin/Globulin Ratio 0.5L Height (Feet): 5 Height (Inches): 3.00 Weight (Pounds): 123 General Appearance: lethargic EENT: PERRL/EOMI Neck: supple Cardiovascular: normal rate Respiratory/Chest: decreased breath sounds Abdomen: normal bowel sounds, non tender, soft Extremities: non-tender Gary Guzman MD Apr 11, 2019 10:32
--- NOTE | 2019-04-11 11:33 | Nephrology Progress Note ---
Assessment/Plan Problem List: (1) Acute renal failure (ARF) Assessment: Cr stable (2) Chronic respiratory failure (3) Anemia (4) Sepsis Assessment Acute renal failure Respiratory failure - Trach Low Mag- Low k , Low Na Anemia UTI / Sepsis Proteinuria / HypoAlbuminemia high Trigs Sz decubs bed bound DNR Plan Transfused previously now has JT bolus Albumin as needed K and Mag and Phos supplement as needed Hydrate as needed Urine studies avoid Nephrotoxics mag K Phos supplements as needed monitor renal parameters Subjective ROS Limited/Unobtainable: Yes Objective Objective Last 24 Hour Vital Signs Date Time Temp Pulse Resp B/P (MAP) Pulse Ox O2 Delivery O2 Flow Rate FiO2 04/11/19 11:19 82 25 99 T-Piece 5.0 28 80 26 97 04/11/19 10:30 84 26 118/60 (79) 96 04/11/19 10:00 91 26 127/56 (79) 97 04/11/19 09:30 91 20 126/54 (78) 98 04/11/19 09:00 85 24 120/52 (74) 97 04/11/19 08:30 85 24 105/50 (68) 98 04/11/19 08:00 5.0 28 04/11/19 08:00 98.7 91 24 100/51 (67) 96 04/11/19 08:00 T-piece 5.0 T-piece 5.0 04/11/19 07:22 98 T-Piece 5.0 28 04/11/19 07:20 87 25 100 T-Piece 5.0 28 91 23 98 04/11/19 07:00 89 19 119/57 (77) 98 04/11/19 06:00 84 19 119/55 (76) 99 04/11/19 05:00 84 21 125/61 (82) 98 04/11/19 04:00 5.0 28 04/11/19 04:00 98.5 98 21 98/45 (62) 99 04/11/19 04:00 95 04/11/19 04:00 T-piece 5.0 T-piece 5.0 04/11/19 03:59 89 22 100 T-Piece 5.0 28 95 25 99 04/11/19 03:00 87 21 114/51 (72) 98 04/11/19 02:00 88 21 103/49 (67) 99 04/11/19 01:00 92 20 110/51 (70) 98 04/11/19 00:09 98 T-Piece 5.0 28 04/11/19 00:00 91 04/11/19 00:00 T-piece 5.0 T-piece 5.0 04/11/19 00:00 98.0 92 20 116/46 (69) 99 04/10/19 23:43 93 23 99 T-Piece 5.0 28 90 25 97 04/10/19 23:00 95 20 117/58 (77) 98 04/10/19 22:00 91 21 110/50 (70) 99 04/10/19 21:00 93 20 125/57 (79) 98 04/10/19 20:00 5.0 28 04/10/19 20:00 T-piece 5.0 T-piece 5.0 04/10/19 20:00 92 20 107/52 (70) 99 04/10/19 20:00 92 04/10/19 19:17 97 T-Piece 5.0 28 04/10/19 19:15 91 22 99 T-Piece 5.0 28 92 24 97 04/10/19 19:00 91 27 112/49 (70) 98 04/10/19 19:00 98.3 92 22 137/57 (83) 99 04/10/19 18:00 92 25 110/60 (77) 95 04/10/19 17:00 90 26 115/57 (76) 97 04/10/19 16:00 91 04/10/19 16:00 T-piece 5.0 T-piece 5.0 04/10/19 16:00 5.0 28 04/10/19 16:00 98.4 90 24 128/56 (80) 98 04/10/19 15:00 91 23 138/60 (86) 98 04/10/19 14:46 89 24 100 T-Piece 5.0 28 94 26 100 04/10/19 14:00 90 25 145/55 (85) 100 04/10/19 13:00 96 30 142/66 (91) 100 04/10/19 12:31 100 T-Piece 5.0 28 04/10/19 12:00 99.4 86 28 130/61 (84) 100 04/10/19 12:00 93 04/10/19 12:00 5.0 28 04/10/19 12:00 T-piece 5.0 T-piece 5.0 Intake and Output 04/10/19 04/11/19 19:00 07:00 Intake Total 1065 ml 1080 ml Output Total 150 ml 600 ml Balance 915 ml 480 ml Free Water 185 ml 300 ml Tube Feeding 780 ml 780 ml Other 100 ml Output Urine Total 150 ml 600 ml # Bowel Movements 4 Laboratory Tests 04/11/19 04:00: White Blood Count 9.9, Red Blood Count 3.77L, Hemoglobin 11.1L, Hematocrit 34.3L , Mean Corpuscular Volume 91, Mean Corpuscular Hemoglobin 29.5, Mean Corpuscular Hemoglobin Concent 32.4, Red Cell Distribution Width 15.8H, Platelet Count 220, Mean Platelet Volume 6.4L, Neutrophils (%) (Auto) 61.7, Lymphocytes (%) (Auto) 30.9, Monocytes (%) (Auto) 4.5, Eosinophils (%) (Auto) 2.5, Basophils (%) (Auto) 0.5, Sodium Level 145, Potassium Level 4.1, Chloride Level 108H, Carbon Dioxide Level 30, Anion Gap 7, Blood Urea Nitrogen 66H, Creatinine 1.2, Estimat Glomerular Filtration Rate , Glucose Level 135H, Calcium Level 8.9, Total Bilirubin 0.2, Aspartate Amino Transf (AST/SGOT) 55H, Alanine Aminotransferase (ALT/SGPT) 94H, Alkaline Phosphatase 169H, Total Protein 8.7H, Albumin 2.9L, Globulin 5.8, Albumin/Globulin Ratio 0.5L Height (Feet): 5 Height (Inches): 3.00 Weight (Pounds): 123 General Appearance: no apparent distress EENT: other - Trach to O2 Cardiovascular: normal rate Abdomen: distended Objective no change Eric Cortez MD Apr 11, 2019 11:33
--- NOTE | 2019-04-11 11:39 | Infectious Diseases Prog Note ---
"Assessment/Plan Assessment/Plan antibiotics : none A 1. klebsiella | providencia pneumonia s/p rx 2. respiratory failure 3. hypertension 4. CVA 5. dementia 6. sacral decubitus ulcer 7. rectal VRE colonization P 1. observe off antibiotics 2. dc planned Subjective ROS Limited/Unobtainable: Yes Allergies: Coded Allergies: CODEINE (Verified Allergy, Unknown, HIVES, 09/15/09) Objective Vital Signs Last 24 Hour Vital Signs Date Time Temp Pulse Resp B/P (MAP) Pulse Ox O2 Delivery O2 Flow Rate FiO2 04/11/19 11:19 82 25 99 T-Piece 5.0 28 80 26 97 04/11/19 10:30 84 26 118/60 (79) 96 04/11/19 10:00 91 26 127/56 (79) 97 04/11/19 09:30 91 20 126/54 (78) 98 04/11/19 09:00 85 24 120/52 (74) 97 04/11/19 08:30 85 24 105/50 (68) 98 04/11/19 08:00 5.0 28 04/11/19 08:00 98.7 91 24 100/51 (67) 96 04/11/19 08:00 T-piece 5.0 T-piece 5.0 04/11/19 07:22 98 T-Piece 5.0 28 04/11/19 07:20 87 25 100 T-Piece 5.0 28 91 23 98 04/11/19 07:00 89 19 119/57 (77) 98 04/11/19 06:00 84 19 119/55 (76) 99 04/11/19 05:00 84 21 125/61 (82) 98 04/11/19 04:00 5.0 28 04/11/19 04:00 98.5 98 21 98/45 (62) 99 04/11/19 04:00 95 04/11/19 04:00 T-piece 5.0 T-piece 5.0 04/11/19 03:59 89 22 100 T-Piece 5.0 28 95 25 99 04/11/19 03:00 87 21 114/51 (72) 98 04/11/19 02:00 88 21 103/49 (67) 99 04/11/19 01:00 92 20 110/51 (70) 98 04/11/19 00:09 98 T-Piece 5.0 28 04/11/19 00:00 91 04/11/19 00:00 T-piece 5.0 T-piece 5.0 04/11/19 00:00 98.0 92 20 116/46 (69) 99 04/10/19 23:43 93 23 99 T-Piece 5.0 28 90 25 97 04/10/19 23:00 95 20 117/58 (77) 98 04/10/19 22:00 91 21 110/50 (70) 99 04/10/19 21:00 93 20 125/57 (79) 98 04/10/19 20:00 5.0 28 04/10/19 20:00 T-piece 5.0 T-piece 5.0 04/10/19 20:00 92 20 107/52 (70) 99 04/10/19 20:00 92 04/10/19 19:17 97 T-Piece 5.0 28 04/10/19 19:15 91 22 99 T-Piece 5.0 28 92 24 97 04/10/19 19:00 91 27 112/49 (70) 98 04/10/19 19:00 98.3 92 22 137/57 (83) 99 04/10/19 18:00 92 25 110/60 (77) 95 04/10/19 17:00 90 26 115/57 (76) 97 04/10/19 16:00 91 04/10/19 16:00 T-piece 5.0 T-piece 5.0 04/10/19 16:00 5.0 28 04/10/19 16:00 98.4 90 24 128/56 (80) 98 04/10/19 15:00 91 23 138/60 (86) 98 04/10/19 14:46 89 24 100 T-Piece 5.0 28 94 26 100 04/10/19 14:00 90 25 145/55 (85) 100 04/10/19 13:00 96 30 142/66 (91) 100 04/10/19 12:31 100 T-Piece 5.0 28 04/10/19 12:00 99.4 86 28 130/61 (84) 100 04/10/19 12:00 93 04/10/19 12:00 5.0 28 04/10/19 12:00 T-piece 5.0 T-piece 5.0 Height (Feet): 5 Height (Inches): 3.00 Weight (Pounds): 123 HEENT: status post trach Respiratory/Chest: lungs clear Cardiovascular: normal rate, regular rhythm, no gallop/murmur Abdomen: soft, non tender, other - GT Extremities: no edema, other - right arm PICC Laboratory Tests Test 04/11/19 04:00 White Blood Count 9.9 K/UL (4.8-10.8) Red Blood Count 3.77 M/UL (4.20-5.40) L Hemoglobin 11.1 G/DL (12.0-16.0) L Hematocrit 34.3 % (37.0-47.0) L Mean Corpuscular Volume 91 FL (80-99) Mean Corpuscular Hemoglobin 29.5 PG (27.0-31.0) Mean Corpuscular Hemoglobin Concent 32.4 G/DL (32.0-36.0) Red Cell Distribution Width 15.8 % (11.6-14.8) H Platelet Count 220 K/UL (150-450) Mean Platelet Volume 6.4 FL (6.5-10.1) L Neutrophils (%) (Auto) 61.7 % (45.0-75.0) Lymphocytes (%) (Auto) 30.9 % (20.0-45.0) Monocytes (%) (Auto) 4.5 % (1.0-10.0) Eosinophils (%) (Auto) 2.5 % (0.0-3.0) Basophils (%) (Auto) 0.5 % (0.0-2.0) Sodium Level 145 MMOL/L (136-145) Potassium Level 4.1 MMOL/L (3.5-5.1) Chloride Level 108 MMOL/L (98-107) H Carbon Dioxide Level 30 MMOL/L (21-32) Anion Gap 7 mmol/L (5-15) Blood Urea Nitrogen 66 mg/dL (7-18) H Creatinine 1.2 MG/DL (0.55-1.30) Estimat Glomerular Filtration Rate mL/min (>60) Glucose Level 135 MG/DL (74-106) H Calcium Level 8.9 MG/DL (8.5-10.1) Total Bilirubin 0.2 MG/DL (0.2-1.0) Aspartate Amino Transf (AST/SGOT) 55 U/L (15-37) H Alanine Aminotransferase (ALT/SGPT) 94 U/L (12-78) H Alkaline Phosphatase 169 U/L (46-116) H Total Protein 8.7 G/DL (6.4-8.2) H Albumin 2.9 G/DL (3.4-5.0) L Globulin 5.8 g/dL Albumin/Globulin Ratio 0.5 (1.0-2.7) L Current Medications Medications (Trade) Dose Ordered Sig/Maicol Route PRN Reason Start Time Stop Time Status Last Admin Dose Admin Acetaminophen (Tylenol) 650 mg Q6H PRN GT Mild Pain/Temp > 100.5 03/23/19 15:15 04/22/19 15:14 04/09/19 21:07 Albuterol/ Ipratropium (Albuterol/ Ipratropium) 3 ml Q4HRT HHN 04/10/19 03:00 04/15/19 02:59 04/11/19 11:20 Atropine Sulfate (Atropine Opth Adriana) 1 drop THREE TIMES A DAY SL 04/08/19 09:00 05/07/19 20:59 04/11/19 08:56 Chlorhexidine Gluconate (Cesilia-Hex 2%) 1 applic DAILY@1999 TOPIC 03/12/19 20:00 04/11/19 19:59 04/10/19 20:13 Folic Acid (Folate) 1 mg DAILY GT 04/08/19 09:00 05/08/19 08:59 04/11/19 08:54 Heparin Sodium (Porcine) (Heparin 5000 units/ml) 5,000 units EVERY 12 HOURS SUBQ 04/01/19 10:00 05/01/19 09:59 04/11/19 08:56 Hydralazine HCl (Apresoline) 25 mg Q6H PRN ORAL SBP above 150 04/06/19 02:45 05/06/19 02:44 04/06/19 11:15 Lansoprazole (Prevacid) 30 mg Q12HR GT 03/29/19 09:00 04/24/19 20:59 04/11/19 08:55 Levetiracetam (Keppra) 750 mg Q12HR GT 04/07/19 21:00 05/07/19 20:59 04/11/19 08:55 Ondansetron HCl (Zofran) 4 mg Q4H PRN IVP Nausea & Vomiting 03/18/19 18:15 04/17/19 18:14 03/21/19 08:27 Geovany Yang MD Apr 11, 2019 11:39"
--- NOTE | 2019-04-11 12:00 | NUR ---
NURSE NOTES: No sign of acute distress. Oral and tracheal suction done at this time. Trach to T-piece with 28% FiO2 noted. Patient tolerating setting with SpO2 98%. Mentation remains the same. Right upper arm PICC line remains patent, asymptomatic, and saline locked at this time. Purewick remains in place, patent and functioning. Gastrostomy/jejunostomy tube patent. Tube feeding of vital AF running at 65mL/hr through J tube and G tube set to drain per gravity with yellow/clear output. Flush of 100mL sterile water done at 0900 for both J tube and G tube. Repeat flush to be done at 1300. All wound dressings changed and cleaned at this time. Patient bed in low position with bed alarm on and call light in reach at this time. Patient repositioned and oral care performed. Will continue to monitor.
--- NOTE | 2019-04-11 12:18 | General Progress Note ---
Assessment/Plan Problem List: (1) Seizure ICD Codes: R56.9 - Unspecified convulsions SNOMED: 08572443 (2) Anemia ICD Codes: D64.9 - Anemia, unspecified SNOMED: 780685190 Qualifiers: Qualified Codes: D64.9 - Anemia, unspecified (3) Sepsis ICD Codes: A41.9 - Sepsis, unspecified organism SNOMED: 82386066, 204538130 Qualifiers: Qualified Codes: A41.9 - Sepsis, unspecified organism (4) Respiratory failure with hypoxia ICD Codes: J96.91 - Respiratory failure, unspecified with hypoxia SNOMED: 83624906153534694 Qualifiers: Qualified Codes: J96.21 - Acute and chronic respiratory failure with hypoxia (5) HCAP (healthcare-associated pneumonia) ICD Codes: J18.9 - Pneumonia, unspecified organism SNOMED: 860270768, 701479123 (6) Sacral decubitus ulcer ICD Codes: L89.159 - Pressure ulcer of sacral region, unspecified stage SNOMED: 603809016 (7) HTN (hypertension) ICD Codes: I10 - Essential (primary) hypertension SNOMED: 85562420 (8) Chronic vegetative state ICD Codes: R40.3 - Persistent vegetative state SNOMED: 04121968 (9) Chronic respiratory failure ICD Codes: J96.10 - Chronic respiratory failure, unspecified whether with hypoxia or hypercapnia SNOMED: 12512433 (10) Limited mobility ICD Codes: Z74.09 - Other reduced mobility SNOMED: 1880784 Status: stable, progressing Assessment/Plan: vent as needed resp rx suctioning j tube feeds g port to gravity skin care sz rx monitor lfts- going up bowel regime dc planning Subjective ROS Limited/Unobtainable: Yes Constitutional: Reports: malaise, weakness HEENT: Reports: no symptoms Cardiovascular: Reports: no symptoms Respiratory: Reports: cough, sputum Gastrointestinal/Abdominal: Reports: difficulty swallowing Genitourinary: Reports: no symptoms Neurologic/Psychiatric: Reports: pre-existing deficit, seizure Endocrine: Reports: no symptoms Hematologic/Lymphatic: Reports: no symptoms Allergies: Coded Allergies: CODEINE (Verified Allergy, Unknown, HIVES, 09/15/09) All Systems: reviewed and negative except above Subjective no events. no reports of bleeding. tolerating feeds, no vomiting. minimal secretions. no szs Objective Last 24 Hour Vital Signs Date Time Temp Pulse Resp B/P (MAP) Pulse Ox O2 Delivery O2 Flow Rate FiO2 04/11/19 12:00 5.0 28 04/11/19 12:00 T-piece 5.0 T-piece 5.0 04/11/19 11:30 80 24 122/48 (72) 99 04/11/19 11:19 82 25 99 T-Piece 5.0 28 80 26 97 04/11/19 11:00 82 25 108/47 (67) 97 04/11/19 10:30 84 26 118/60 (79) 96 04/11/19 10:00 91 26 127/56 (79) 97 04/11/19 09:30 91 20 126/54 (78) 98 04/11/19 09:00 85 24 120/52 (74) 97 04/11/19 08:30 85 24 105/50 (68) 98 04/11/19 08:00 5.0 28 04/11/19 08:00 83 04/11/19 08:00 98.7 91 24 100/51 (67) 96 04/11/19 08:00 T-piece 5.0 T-piece 5.0 04/11/19 07:22 98 T-Piece 5.0 28 04/11/19 07:20 87 25 100 T-Piece 5.0 28 91 23 98 04/11/19 07:00 89 19 119/57 (77) 98 04/11/19 06:00 84 19 119/55 (76) 99 04/11/19 05:00 84 21 125/61 (82) 98 04/11/19 04:00 5.0 28 04/11/19 04:00 98.5 98 21 98/45 (62) 99 04/11/19 04:00 95 04/11/19 04:00 T-piece 5.0 T-piece 5.0 04/11/19 03:59 89 22 100 T-Piece 5.0 28 95 25 99 04/11/19 03:00 87 21 114/51 (72) 98 04/11/19 02:00 88 21 103/49 (67) 99 04/11/19 01:00 92 20 110/51 (70) 98 04/11/19 00:09 98 T-Piece 5.0 28 04/11/19 00:00 91 04/11/19 00:00 T-piece 5.0 T-piece 5.0 04/11/19 00:00 98.0 92 20 116/46 (69) 99 04/10/19 23:43 93 23 99 T-Piece 5.0 28 90 25 97 04/10/19 23:00 95 20 117/58 (77) 98 04/10/19 22:00 91 21 110/50 (70) 99 04/10/19 21:00 93 20 125/57 (79) 98 04/10/19 20:00 5.0 28 04/10/19 20:00 T-piece 5.0 T-piece 5.0 04/10/19 20:00 92 20 107/52 (70) 99 04/10/19 20:00 92 04/10/19 19:17 97 T-Piece 5.0 28 04/10/19 19:15 91 22 99 T-Piece 5.0 28 92 24 97 04/10/19 19:00 91 27 112/49 (70) 98 04/10/19 19:00 98.3 92 22 137/57 (83) 99 04/10/19 18:00 92 25 110/60 (77) 95 04/10/19 17:00 90 26 115/57 (76) 97 04/10/19 16:00 91 04/10/19 16:00 T-piece 5.0 T-piece 5.0 04/10/19 16:00 5.0 28 04/10/19 16:00 98.4 90 24 128/56 (80) 98 04/10/19 15:00 91 23 138/60 (86) 98 04/10/19 14:46 89 24 100 T-Piece 5.0 28 94 26 100 04/10/19 14:00 90 25 145/55 (85) 100 04/10/19 13:00 96 30 142/66 (91) 100 04/10/19 12:31 100 T-Piece 5.0 28 Intake and Output 04/10/19 04/11/19 19:00 07:00 Intake Total 1065 ml 1080 ml Output Total 150 ml 600 ml Balance 915 ml 480 ml Free Water 185 ml 300 ml Tube Feeding 780 ml 780 ml Other 100 ml Output Urine Total 150 ml 600 ml # Bowel Movements 4 Laboratory Tests 1/11/20 04:00: White Blood Count 9.9, Red Blood Count 3.77L, Hemoglobin 11.1L, Hematocrit 34.3L , Mean Corpuscular Volume 91, Mean Corpuscular Hemoglobin 29.5, Mean Corpuscular Hemoglobin Concent 32.4, Red Cell Distribution Width 15.8H, Platelet Count 220, Mean Platelet Volume 6.4L, Neutrophils (%) (Auto) 61.7, Lymphocytes (%) (Auto) 30.9, Monocytes (%) (Auto) 4.5, Eosinophils (%) (Auto) 2.5, Basophils (%) (Auto) 0.5, Sodium Level 145, Potassium Level 4.1, Chloride Level 108H, Carbon Dioxide Level 30, Anion Gap 7, Blood Urea Nitrogen 66H, Creatinine 1.2, Estimat Glomerular Filtration Rate , Glucose Level 135H, Calcium Level 8.9, Total Bilirubin 0.2, Aspartate Amino Transf (AST/SGOT) 55H, Alanine Aminotransferase (ALT/SGPT) 94H, Alkaline Phosphatase 169H, Total Protein 8.7H, Albumin 2.9L, Globulin 5.8, Albumin/Globulin Ratio 0.5L Height (Feet): 5 Height (Inches): 3.00 Weight (Pounds): 123 Objective General Appearance: WD/WN, confused. on trach collar Neck: supple Cardiovascular: normal rate, regular rhythm Respiratory/Chest: chest wall non-tender, rhonchi - bilaterally(minimal) Abdomen: normal bowel sounds, non tender, soft, no organomegaly Edema: no edema noted Arm (L), no edema noted Arm (R), no edema noted Leg (L), no edema noted Leg (R), no edema noted Pedal (L), no edema noted Pedal (R), no edema noted Generalized Neurologic: disoriented, unresponsive, aphasia Irvin Beltrán MD Apr 11, 2019 12:18
--- NOTE | 2019-04-11 16:00 | NUR ---
NURSE NOTES: No sign of acute distress. Oral and tracheal suction done at this time. Trach to T-piece with 28% FiO2 noted. Patient tolerating setting with SpO2 98%. Mentation remains the same. Right upper arm PICC line remains patent, asymptomatic, and saline locked at this time. Purewick remains in place, patent and functioning. Gastrostomy/jejunostomy tube patent. Tube feeding of vital AF running at 65mL/hr through J tube and G tube set to drain per gravity with yellow/clear output. Flush of 100mL sterile water done at 1300 for both J tube and G tube. Repeat flush to be done at 1700. All wound dressings dry and intact. Patient bed in low position with bed alarm on and call light in reach at this time. Patient repositioned and oral care performed. Bed bath done at this time. Will continue to monitor.
[2019-04-11] MEDS ORDERED: NS 275ml ONE (16:33)
[2019-04-11] MEDS ORDERED: NS Irrig 1000ml ONE (16:33)
--- NOTE | 2019-04-11 19:30 | NUR ---
RESPIRATORY NOTE: Received pt on 28% Cool Aerosol via T-piece. Pt is trach-dependent w/ a cuffed, Shiley 6 XLT tube, cuff is currently deflated. Pt is asleep, responds to stimuli. B/S flory. rhonchi, sxn small to moderate amounts of thin/frothy, clear-white secretions. Ambubag & spare trach kit at bedside. Pt resting comfortably, in no apparent distress. Will continue to monitor pt.
--- NOTE | 2019-04-11 19:30 | NUR ---
HAND-OFF: Report given to JEANNINE Mario. Patient vital signs stable with no sign of acute distress.
--- NOTE | 2019-04-11 19:31 | NUR ---
NURSE NOTES: Received patient from JEANNINE Pitts. Pt is obtunded, vss, with no acute distress. Patient on ekg monitor tech and IV o the right upper arm PICC, dressing changed 04/09/19. Pt is on T-piece Shiley 6 XLT at 28% and is resting well at this time. Bed at its lowest position, call light in reach and x2 bed rails are up. Will continue to monitor.
--- NOTE | 2019-04-11 20:48 | Surgery Progress Note ---
Surgery Progress Note Subjective Additional Comments no acute events Objective Last 24 Hour Vital Signs Date Time Temp Pulse Resp B/P (MAP) Pulse Ox O2 Delivery O2 Flow Rate FiO2 04/11/19 20:00 5.0 28 04/11/19 20:00 79 04/11/19 20:00 98.1 87 23 123/56 (78) 97 04/11/19 20:00 T-piece 5.0 T-piece 5.0 04/11/19 19:39 82 21 99 T-Piece 5.0 28 04/11/19 19:29 80 23 98 T-Piece 5.0 28 04/11/19 19:29 98 T-Piece 5.0 28 04/11/19 19:00 81 24 111/52 (71) 98 04/11/19 18:30 82 23 129/60 (83) 98 04/11/19 18:00 94 16 137/55 (82) 99 04/11/19 17:00 94 24 131/58 (82) 97 04/11/19 16:00 T-piece 5.0 T-piece 5.0 04/11/19 16:00 98.6 84 26 119/57 (77) 97 04/11/19 16:00 82 04/11/19 16:00 5.0 28 04/11/19 15:43 84 22 100 T-Piece 5.0 28 83 24 98 04/11/19 15:00 85 24 120/60 (80) 96 04/11/19 14:00 89 22 133/57 (82) 98 04/11/19 13:00 85 20 126/55 (78) 98 04/11/19 12:59 97 T-Piece 5.0 28 04/11/19 12:30 90 24 125/54 (77) 98 04/11/19 12:00 82 04/11/19 12:00 5.0 28 04/11/19 12:00 T-piece 5.0 T-piece 5.0 04/11/19 12:00 98.7 84 28 107/49 (68) 96 04/11/19 11:30 80 24 122/48 (72) 99 04/11/19 11:19 82 25 99 T-Piece 5.0 28 80 26 97 04/11/19 11:00 82 25 108/47 (67) 97 04/11/19 10:30 84 26 118/60 (79) 96 04/11/19 10:00 91 26 127/56 (79) 97 04/11/19 09:30 91 20 126/54 (78) 98 04/11/19 09:00 85 24 120/52 (74) 97 04/11/19 08:30 85 24 105/50 (68) 98 04/11/19 08:00 5.0 28 04/11/19 08:00 83 04/11/19 08:00 98.7 91 24 100/51 (67) 96 04/11/19 08:00 T-piece 5.0 T-piece 5.0 04/11/19 07:22 98 T-Piece 5.0 28 04/11/19 07:20 87 25 100 T-Piece 5.0 28 91 23 98 04/11/19 07:00 89 19 119/57 (77) 98 04/11/19 06:00 84 19 119/55 (76) 99 04/11/19 05:00 84 21 125/61 (82) 98 04/11/19 04:00 5.0 28 04/11/19 04:00 98.5 98 21 98/45 (62) 99 04/11/19 04:00 95 04/11/19 04:00 T-piece 5.0 T-piece 5.0 04/11/19 03:59 89 22 100 T-Piece 5.0 28 95 25 99 04/11/19 03:00 87 21 114/51 (72) 98 04/11/19 02:00 88 21 103/49 (67) 99 04/11/19 01:00 92 20 110/51 (70) 98 04/11/19 00:09 98 T-Piece 5.0 28 04/11/19 00:00 91 04/11/19 00:00 T-piece 5.0 T-piece 5.0 04/11/19 00:00 98.0 92 20 116/46 (69) 99 04/10/19 23:43 93 23 99 T-Piece 5.0 28 90 25 97 04/10/19 23:00 95 20 117/58 (77) 98 04/10/19 22:00 91 21 110/50 (70) 99 04/10/19 21:00 93 20 125/57 (79) 98 I&O Intake and Output 04/10/19 04/11/19 19:00 07:00 Intake Total 1065 ml 1080 ml Output Total 150 ml 600 ml Balance 915 ml 480 ml Free Water 185 ml 300 ml Tube Feeding 780 ml 780 ml Other 100 ml Output Urine Total 150 ml 600 ml # Bowel Movements 4 Dressing: saturated Wound: clean Cardiovascular: RSR Respiratory: clear, decreased breath sounds Abdomen: soft, present bowel sounds, non-distended Extremities: no tenderness, no cyanosis, other Laboratory Tests Test 04/11/19 04:00 White Blood Count 9.9 K/UL (4.8-10.8) Red Blood Count 3.77 M/UL (4.20-5.40) L Hemoglobin 11.1 G/DL (12.0-16.0) L Hematocrit 34.3 % (37.0-47.0) L Mean Corpuscular Volume 91 FL (80-99) Mean Corpuscular Hemoglobin 29.5 PG (27.0-31.0) Mean Corpuscular Hemoglobin Concent 32.4 G/DL (32.0-36.0) Red Cell Distribution Width 15.8 % (11.6-14.8) H Platelet Count 220 K/UL (150-450) Mean Platelet Volume 6.4 FL (6.5-10.1) L Neutrophils (%) (Auto) 61.7 % (45.0-75.0) Lymphocytes (%) (Auto) 30.9 % (20.0-45.0) Monocytes (%) (Auto) 4.5 % (1.0-10.0) Eosinophils (%) (Auto) 2.5 % (0.0-3.0) Basophils (%) (Auto) 0.5 % (0.0-2.0) Sodium Level 145 MMOL/L (136-145) Potassium Level 4.1 MMOL/L (3.5-5.1) Chloride Level 108 MMOL/L (98-107) H Carbon Dioxide Level 30 MMOL/L (21-32) Anion Gap 7 mmol/L (5-15) Blood Urea Nitrogen 66 mg/dL (7-18) H Creatinine 1.2 MG/DL (0.55-1.30) Estimat Glomerular Filtration Rate mL/min (>60) Glucose Level 135 MG/DL (74-106) H Calcium Level 8.9 MG/DL (8.5-10.1) Total Bilirubin 0.2 MG/DL (0.2-1.0) Aspartate Amino Transf (AST/SGOT) 55 U/L (15-37) H Alanine Aminotransferase (ALT/SGPT) 94 U/L (12-78) H Alkaline Phosphatase 169 U/L (46-116) H Total Protein 8.7 G/DL (6.4-8.2) H Albumin 2.9 G/DL (3.4-5.0) L Globulin 5.8 g/dL Albumin/Globulin Ratio 0.5 (1.0-2.7) L Plan Problems: (1) Sacral decubitus ulcer Assessment & Plan: This is a 83-year-old female with multiple medical committees that is currently admitted for medical care and management and identified to have multiple wounds requiring care. On admission patient noted to have a resolved sacral decubitus ulcer. Has had prior care and is well-healed at this time. Will ensure it does not open up again. Patient has a right ischial decubitus ulcer that is resolved. Scar intact and well formed. Will monitor to ensure it does not open up again. Patient has a left ischial decubitus ulcer that can be identified to be stage IV with palpable bone that has been resolving as noted by the periwound tissue and scar but open area approximately 1 cm x 1.5 cm few millimeters deep to bone identified. Unsure if this is been to be completely healed prior and has since opened or if has been healing at this level. No foul odor no drainage was unsure local wound care until healed Bilateral heels soft without signs of injury Resolving pressure injury L ischium(L)1.8cm x (W)1cm.Scattered biofilm at base of wound. Edges flat and adherent with surrounding hyperpigmentation. No odor or exudate noted. Sacrum is pale pink with surrounding hyperpigmentation. Hyperpigmentation R ischium with small sheared area centrally.No areas of erythema or exudate noted. Both heels are soft but blanchable. Skin Assessed under collar of trach and no evidence of skin breakdown noted. All wound Tx. are effective and continued as ordered. Pt ahs an APM/Belén mattress overlay and is being repositioned per protocols and per tolerance.No new skin concerns noted. Full thickness pressure injury L Ischium with small amt biofilm (L)1.8cm x (W) 1cm. Surrounding pink hyperpigmentation. No odor or exudate noted. [place] hyperpigmentation from previous wound noted to sacrum. Pt also noted to have Cat 2 Skin Tear dorsal L hand, L 5th metatarsal extending into palm of hand. 80% skin flap in situ.Both heels are dry firm and blanchable. No other skin concerns noted. R ischial wound has resolved. [place] epithelial with surrounding hyperpigmentation. from historical wound. Full thickness pressure injury L ischium. [place] granulation at base of wound. Borders are macerated with Surrounding hyperpigmentation.Small amt non-odorous serous exudate noted.(L)0.7cm x (W)0.8cm. Skin hyperpigmentation from historical wound noted to Sacrum. Small sheared area noted to sacrococcygeal area.(L)0.4cm x (W)0.3cm.Small amt sanguineous exudate noted. Reabsorbed blister with semi-detached dry necrotic cap noted to web space of L thumb and L index fingers extending into palm of L hand. No odor or exudate noted. Skin assessed under tracheal collar and no erythema or evidence of Skin Breakdown noted. NO new skin concerns noted . Good hand hygiene provided to both hands. R hand contracted and fisted. Fingernails trimmed. Wound care provided along with Primary nurse. Wound Tx continued as ordered. New order obtained from to apply Betadine to wound L hand Daily. Tx done as ordered. L hand wrapped with kerlix weaving kerlix between fingers to separate fingers. Moisture Barrier applied to sacrum ,R ischium. Each site covered with Optifoam drsg. Both lower ext washed and moisturized. [place] Skin Barrier applied to both heels.Each heel covered with Optifoam drsgs. Pt positioned with pillows and both heels off-loaded with pillow. Pt wounds are resolving. Loose necrotic cap within web space of L index finger and L thumb easily removed with gentle friction. Base of wound is hypergranular with 10% necrosis. Borders are macerated. Application of Silver Nitrate to hypergranular base done. [place] Skin Barrier applied to borders . Good hand hygiene provided. Wound covered with Abd pad. L hand wrapped with Kerlix weaving Kerlix between digitsof L hand. Pressure injury L ischium resolving. Base iof wound is pale pink and dry with surrounding hyperpigmentation and scar from previous wound. Hyperpigmentation with historical scars noted to Sacrum and R ischium. Both heels are soft and blanchable. Skin Assessed under trach collar and no evidence of skin breakdown noted. Tx.Plan: Apply Betadine to wound L hand. Cover with Gauze and wrap with Kerlix Daily and prn. Cleanse L ischial wound with Saline. Apply Therahoney. Apply Moisture Barrier periwound. Cover with Optifoam drsgevery 3 days and prn. Apply Moisture Barrier Paste to R ischium and Sacrum. Cover each area with Optifoam drsg. Change every 3 days and prn. Apply [place] Skin Barrier to both heels. Cover each heel with Optifoam drsg. Change every 7 days and prn. Cleanse Blister Dorsal and palm of L hand with saline. Versatel One Silicone Contact Layer(Applied). Apply Silvasorb Gel. Wrap with Kerlix Gauze.Change every 7 days and prn. Apply Moisture Barrier to sacrum. Cover with Optifoam drsg. Change every 3 days and prn. APM/BELÉN Mattress overlay. Reposition at least every 2hours or as tolerated. Off-load heels with pillow. Nutritional optimization We will monitor follow with recommendations cont with above upon d/c wounds healing overall improving (2) Sepsis Assessment & Plan: IV abx as per ID trend labs improving wounds unlikely etiology likely respiratory imaging noted and okay abnormal lft's stable PICC on Abx in ICU for desaturation CXR with consolidation cont with frequent suctioning d/c planning g j via GI daughter wants close attention to wounds and management to ensure healing Evidence of left lower lobe pneumonia, also previously demonstrated Gastrostomy in good position Mild diastasis of the rectus abdominis musculature again demonstrated Retrosacral decubitus changes, better depicted on prior exam which included the pelvis Small hiatal hernia with evidence of trace gastroesophageal reflux Discussed with GI. Recommend GJ family still pending decision transfuse prbc prn monitor h/h monitor bm LFTs improving trending down (3) Feeding by G-tube Assessment & Plan: DAILY ESTIMATED NEEDS: Needs based on Pulmonary, wounds, bedbound/ 61kg adj 25-30 kcals/kg 8634-9875 total kcals 1.25-2 g protein/kg 76-122 g total protein 25-30 mL/kg 2173-5076 total fluid mLs NUTRITION DIAGNOSIS: * Increased kcal/prot needs R/T wound healing as evidenced by BL buttocks and sacral wound photos, refer to eval. * Swallowing difficulty R/T respiratory status as evidenced by pt on T-collar, s/p G-J conversion CURRENT TF:Glucerna 1.5 @ 50ml/hr x 24 hrs ENTERAL NUTRITION RECOMMENDATIONS: Glucerna 1.5 @ 50ml/hr x 24 hrs to provide 1200ml, 1800 kcal, 99g pro, 911ml free H2O - Maintain at current rate as tolerated to meet 100% est needs - HOB over 30 degrees - INCREASE water flush of 170ml q 6 hrs ADDITIONAL RECOMMENDATIONS: 1) RE-calibrate bedscale wt: fluctuating daily wts (108#-136# last 6 days) 2) Wound healing: Add Cristian 1pkt BID w/ continued good TF tolerance. 3) Increase water flushes, monitor for signs of water deficits 4) Monitor BGs closely, need for NISS -> now w/ improved BGs 5) Monitor for continued good TF tolerance 6) Monitor K : elev K on 03/25, s/p Kdur BID, now dc'ed. (4) Chronic vegetative state Assessment & Plan: incontinence of urine and stool. can soil dressings. nurses doing great job with monitoring and changing prn (5) Leukocytosis Walter Madera Apr 11, 2019 20:48
--- NOTE | 2019-04-11 22:30 | NUR ---
NURSE NOTES: Pt tolerated suction well. Pt had scant secretions.
[2019-04-12] VITALS (26 sets, daily range): BP systolic 106–133; BP diastolic 46–71
--- NOTE | 2019-04-12 01:39 | NUR ---
NURSE NOTES: Suction produced scant secretions.
[2019-04-12] MEDS: Albuterol/Ipratropium 3ml neb HHN SCH ×6 (03:01→23:02)
--- NOTE | 2019-04-12 04:35 | NUR ---
NURSE NOTES: Patient is clean and resting well with no signs of distress.
--- NOTE | 2019-04-12 07:15 | NUR ---
HAND-OFF: Report given to JEANNINE Pitts.
--- NOTE | 2019-04-12 07:16 | NUR ---
NURSE NOTES: Received patient from JEANNINE Mario. Patient sleeping with no sign of acute distress. Patient arousable to name but does not track or attempt to communicate. Patient on trach to T-piece with 28% FiO2. Patient reported to have moderate amount of secretion both tracheal and oral during the night. Patient suctioned both via the trach and orally at this time. Oral care performed. Will continue to monitor and suction as needed. Patient bilateral upper extremities contracted at the elbow and fingers contracted in fists. Left hand covered with Kerlix (patient has open wound that is improved/healing) and right hand has gauze roll in palm of hand to prevent further contracture. Patient has right upper arm PICC line that is patent, asymptomatic, and saline locked at this time. patient has gastrostomy/jejunostomy tube that is patent, asymptomatic, and functional at this time. patient gastrostomy tube draining to gravity at this time. Patient jejunostomy tube running tube feeding of vital AF at 65mL/hr at this time. patient tolerating feeding. Patient has order for G and J tube flush Q4Hr. Next flush due at 0900. Will follow up and flush per order. Patient has purewick for incontinence. Purewick in place and functional at this time. Patient has contracture of bilateral legs and foot drop. Patient heels and ankles had Optifoam for protection. Patient has bilateral ischium and sacral healed/resolved pressure injuries. Dressing dry and intact at this time. Patient bed in low position with bed alarm on and call light in reach. Patient repositioned and oral care performed. Will continue to monitor.
--- NOTE | 2019-04-12 07:56 | General Progress Note ---
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 - Elevated glucose - elevated BUN/Cr - poor Prognosis Recommendations - reduce laxatives - increase free water and re check BUN/Cr - Cristian BID - antibiotic ointment to GJT site PRN - aspiration precautions - elevate HOB - Vital AF 1.2 - check q 6 hour FS - transfuse to keep Hg > 7 - J tube feeds - G tube drain Subjective ROS Limited/Unobtainable: No Allergies: Coded Allergies: CODEINE (Verified Allergy, Unknown, HIVES, 09/15/09) Objective Last 24 Hour Vital Signs Date Time Temp Pulse Resp B/P (MAP) Pulse Ox O2 Delivery O2 Flow Rate FiO2 04/12/19 07:00 98.0 87 27 121/55 (77) 96 04/12/19 06:00 83 24 124/55 (78) 98 04/12/19 05:00 86 28 128/52 (77) 97 04/12/19 04:00 82 23 120/56 (77) 98 04/12/19 04:00 T-piece 5.0 T-piece 5.0 04/12/19 04:00 5.0 28 04/12/19 04:00 86 04/12/19 03:11 88 25 99 T-Piece 5.0 28 04/12/19 03:01 86 23 97 T-Piece 5.0 28 04/12/19 03:00 98.6 87 27 116/66 (83) 97 04/12/19 02:00 85 27 110/53 (72) 96 04/12/19 01:13 99 T-Piece 5.0 28 04/12/19 01:00 86 26 114/54 (74) 97 04/12/19 00:00 T-piece 5.0 T-piece 5.0 04/12/19 00:00 87 26 106/58 (74) 96 04/11/19 23:37 85 24 100 T-Piece 5.0 28 04/11/19 23:26 85 26 99 T-Piece 5.0 28 04/11/19 23:00 98.6 86 26 112/54 (73) 97 04/11/19 22:00 85 26 107/48 (67) 98 04/11/19 21:30 87 25 108/52 (70) 97 04/11/19 21:00 88 23 116/52 (73) 98 04/11/19 20:00 5.0 28 04/11/19 20:00 79 04/11/19 20:00 98.1 87 23 123/56 (78) 97 04/11/19 20:00 T-piece 5.0 T-piece 5.0 04/11/19 19:39 82 21 99 T-Piece 5.0 28 04/11/19 19:29 80 23 98 T-Piece 5.0 28 04/11/19 19:29 98 T-Piece 5.0 28 04/11/19 19:00 81 24 111/52 (71) 98 04/11/19 18:30 82 23 129/60 (83) 98 04/11/19 18:00 94 16 137/55 (82) 99 04/11/19 17:00 94 24 131/58 (82) 97 04/11/19 16:00 T-piece 5.0 T-piece 5.0 04/11/19 16:00 98.6 84 26 119/57 (77) 97 04/11/19 16:00 82 04/11/19 16:00 5.0 28 04/11/19 15:43 84 22 100 T-Piece 5.0 28 83 24 98 04/11/19 15:00 85 24 120/60 (80) 96 04/11/19 14:00 89 22 133/57 (82) 98 04/11/19 13:00 85 20 126/55 (78) 98 04/11/19 12:59 97 T-Piece 5.0 28 04/11/19 12:30 90 24 125/54 (77) 98 04/11/19 12:00 82 04/11/19 12:00 5.0 28 04/11/19 12:00 T-piece 5.0 T-piece 5.0 04/11/19 12:00 98.7 84 28 107/49 (68) 96 04/11/19 11:30 80 24 122/48 (72) 99 04/11/19 11:19 82 25 99 T-Piece 5.0 28 80 26 97 04/11/19 11:00 82 25 108/47 (67) 97 04/11/19 10:30 84 26 118/60 (79) 96 04/11/19 10:00 91 26 127/56 (79) 97 04/11/19 09:30 91 20 126/54 (78) 98 04/11/19 09:00 85 24 120/52 (74) 97 04/11/19 08:30 85 24 105/50 (68) 98 04/11/19 08:00 5.0 28 04/11/19 08:00 83 04/11/19 08:00 98.7 91 24 100/51 (67) 96 04/11/19 08:00 T-piece 5.0 T-piece 5.0 Intake and Output 04/11/19 04/12/19 19:00 07:00 Intake Total 1445 ml 1380 ml Output Total 325 ml 825 ml Balance 1120 ml 555 ml Free Water 300 ml 300 ml Tube Feeding 845 ml 780 ml Other 300 ml 300 ml Output Urine Total 100 ml 375 ml Other 225 ml 450 ml # Voids 3 Height (Feet): 5 Height (Inches): 3.00 Weight (Pounds): 116 General Appearance: alert EENT: normal ENT inspection Neck: supple Cardiovascular: normal rate Respiratory/Chest: decreased breath sounds Abdomen: normal bowel sounds, non tender, soft Gary Guzman MD Apr 12, 2019 07:56
--- NOTE | 2019-04-12 08:30 | NUR ---
NURSE NOTES: Called [facility] case management office to follow up regarding patient transfer to their subacute unit. Left telephone message. Awaiting call back.
[2019-04-12] MEDS: Heparin 5000 units/ml inj SUBQ SCH ×2 (08:47→20:45)
--- NOTE | 2019-04-12 10:00 | NUR ---
NURSE NOTES: Patient orally and tracheal suctioned at this time. Patient vital signs stable with no sign of acute distress. Will continue to monitor. Patient repositioned.
--- NOTE | 2019-04-12 10:59 | Surgery Progress Note ---
Surgery Progress Note Subjective Additional Comments no acute events labs improved exam stable Objective Last 24 Hour Vital Signs Date Time Temp Pulse Resp B/P (MAP) Pulse Ox O2 Delivery O2 Flow Rate FiO2 04/12/19 10:40 86 22 99 T-Piece 5.0 28 86 25 97 04/12/19 07:00 98.0 87 27 121/55 (77) 96 04/12/19 06:48 87 24 99 T-Piece 5.0 28 86 26 97 04/12/19 06:38 97 T-Piece 5.0 28 04/12/19 06:00 83 24 124/55 (78) 98 04/12/19 05:00 86 28 128/52 (77) 97 04/12/19 04:00 82 23 120/56 (77) 98 04/12/19 04:00 T-piece 5.0 T-piece 5.0 04/12/19 04:00 5.0 28 04/12/19 04:00 86 04/12/19 03:11 88 25 99 T-Piece 5.0 28 04/12/19 03:01 86 23 97 T-Piece 5.0 28 04/12/19 03:00 98.6 87 27 116/66 (83) 97 04/12/19 02:00 85 27 110/53 (72) 96 04/12/19 01:13 99 T-Piece 5.0 28 04/12/19 01:00 86 26 114/54 (74) 97 04/12/19 00:00 T-piece 5.0 T-piece 5.0 04/12/19 00:00 87 26 106/58 (74) 96 04/11/19 23:37 85 24 100 T-Piece 5.0 28 04/11/19 23:26 85 26 99 T-Piece 5.0 28 04/11/19 23:00 98.6 86 26 112/54 (73) 97 04/11/19 22:00 85 26 107/48 (67) 98 04/11/19 21:30 87 25 108/52 (70) 97 04/11/19 21:00 88 23 116/52 (73) 98 04/11/19 20:00 5.0 28 04/11/19 20:00 79 04/11/19 20:00 98.1 87 23 123/56 (78) 97 04/11/19 20:00 T-piece 5.0 T-piece 5.0 04/11/19 19:39 82 21 99 T-Piece 5.0 28 04/11/19 19:29 80 23 98 T-Piece 5.0 28 04/11/19 19:29 98 T-Piece 5.0 28 04/11/19 19:00 81 24 111/52 (71) 98 04/11/19 18:30 82 23 129/60 (83) 98 04/11/19 18:00 94 16 137/55 (82) 99 04/11/19 17:00 94 24 131/58 (82) 97 04/11/19 16:00 T-piece 5.0 T-piece 5.0 04/11/19 16:00 98.6 84 26 119/57 (77) 97 04/11/19 16:00 82 04/11/19 16:00 5.0 28 04/11/19 15:43 84 22 100 T-Piece 5.0 28 83 24 98 04/11/19 15:00 85 24 120/60 (80) 96 04/11/19 14:00 89 22 133/57 (82) 98 04/11/19 13:00 85 20 126/55 (78) 98 04/11/19 12:59 97 T-Piece 5.0 28 04/11/19 12:30 90 24 125/54 (77) 98 04/11/19 12:00 82 04/11/19 12:00 5.0 28 04/11/19 12:00 T-piece 5.0 T-piece 5.0 04/11/19 12:00 98.7 84 28 107/49 (68) 96 04/11/19 11:30 80 24 122/48 (72) 99 04/11/19 11:19 82 25 99 T-Piece 5.0 28 80 26 97 04/11/19 11:00 82 25 108/47 (67) 97 I&O Intake and Output 04/11/19 04/12/19 19:00 07:00 Intake Total 1445 ml 1380 ml Output Total 325 ml 825 ml Balance 1120 ml 555 ml Free Water 300 ml 300 ml Tube Feeding 845 ml 780 ml Other 300 ml 300 ml Output Urine Total 100 ml 375 ml Other 225 ml 450 ml # Voids 3 Dressing: saturated Wound: clean Cardiovascular: RSR Respiratory: clear Abdomen: soft, non-tender, present bowel sounds, non-distended Extremities: no tenderness, no cyanosis Plan Problems: (1) Sacral decubitus ulcer Assessment & Plan: This is a 83-year-old female with multiple medical committees that is currently admitted for medical care and management and identified to have multiple wounds requiring care. On admission patient noted to have a resolved sacral decubitus ulcer. Has had prior care and is well-healed at this time. Will ensure it does not open up again. Patient has a right ischial decubitus ulcer that is resolved. Scar intact and well formed. Will monitor to ensure it does not open up again. Patient has a left ischial decubitus ulcer that can be identified to be stage IV with palpable bone that has been resolving as noted by the periwound tissue and scar but open area approximately 1 cm x 1.5 cm few millimeters deep to bone identified. Unsure if this is been to be completely healed prior and has since opened or if has been healing at this level. No foul odor no drainage was unsure local wound care until healed Bilateral heels soft without signs of injury Resolving pressure injury L ischium(L)1.8cm x (W)1cm.Scattered biofilm at base of wound. Edges flat and adherent with surrounding hyperpigmentation. No odor or exudate noted. Sacrum is pale pink with surrounding hyperpigmentation. Hyperpigmentation R ischium with small sheared area centrally.No areas of erythema or exudate noted. Both heels are soft but blanchable. Skin Assessed under collar of trach and no evidence of skin breakdown noted. All wound Tx. are effective and continued as ordered. Pt ahs an APM/Belén mattress overlay and is being repositioned per protocols and per tolerance.No new skin concerns noted. Full thickness pressure injury L Ischium with small amt biofilm (L)1.8cm x (W) 1cm. Surrounding pink hyperpigmentation. No odor or exudate noted. Marina hyperpigmentation from previous wound noted to sacrum. Pt also noted to have Cat 2 Skin Tear dorsal L hand, L 5th metatarsal extending into palm of hand. 80% skin flap in situ.Both heels are dry firm and blanchable. No other skin concerns noted. R ischial wound has resolved. Marina epithelial with surrounding hyperpigmentation. from historical wound. Full thickness pressure injury L ischium. Marina granulation at base of wound. Borders are macerated with Surrounding hyperpigmentation.Small amt non-odorous serous exudate noted.(L)0.7cm x (W)0.8cm. Skin hyperpigmentation from historical wound noted to Sacrum. Small sheared area noted to sacrococcygeal area.(L)0.4cm x (W)0.3cm.Small amt sanguineous exudate noted. Reabsorbed blister with semi-detached dry necrotic cap noted to web space of L thumb and L index fingers extending into palm of L hand. No odor or exudate noted. Skin assessed under tracheal collar and no erythema or evidence of Skin Breakdown noted. NO new skin concerns noted . Good hand hygiene provided to both hands. R hand contracted and fisted. Fingernails trimmed. Wound care provided along with Primary nurse. Wound Tx continued as ordered. New order obtained from to apply Betadine to wound L hand Daily. Tx done as ordered. L hand wrapped with kerlix weaving kerlix between fingers to separate fingers. Moisture Barrier applied to sacrum ,R ischium. Each site covered with Optifoam drsg. Both lower ext washed and moisturized. Cavilon Skin Barrier applied to both heels.Each heel covered with Optifoam drsgs. Pt positioned with pillows and both heels off-loaded with pillow. Pt wounds are resolving. Loose necrotic cap within web space of L index finger and L thumb easily removed with gentle friction. Base of wound is hypergranular with 10% necrosis. Borders are macerated. Application of Silver Nitrate to hypergranular base done. Cavilon Skin Barrier applied to borders . Good hand hygiene provided. Wound covered with Abd pad. L hand wrapped with Kerlix weaving Kerlix between digitsof L hand. Pressure injury L ischium resolving. Base iof wound is pale pink and dry with surrounding hyperpigmentation and scar from previous wound. Hyperpigmentation with historical scars noted to Sacrum and R ischium. Both heels are soft and blanchable. Skin Assessed under trach collar and no evidence of skin breakdown noted. Tx.Plan: Apply Betadine to wound L hand. Cover with Gauze and wrap with Kerlix Daily and prn. Cleanse L ischial wound with Saline. Apply Therahoney. Apply Moisture Barrier periwound. Cover with Optifoam drsgevery 3 days and prn. Apply Moisture Barrier Paste to R ischium and Sacrum. Cover each area with Optifoam drsg. Change every 3 days and prn. Apply Cavilon Skin Barrier to both heels. Cover each heel with Optifoam drsg. Change every 7 days and prn. Cleanse Blister Dorsal and palm of L hand with saline. Versatel One Silicone Contact Layer(Applied). Apply Silvasorb Gel. Wrap with Kerlix Gauze.Change every 7 days and prn. Apply Moisture Barrier to sacrum. Cover with Optifoam drsg. Change every 3 days and prn. APM/BELÉN Mattress overlay. Reposition at least every 2hours or as tolerated. Off-load heels with pillow. Nutritional optimization We will monitor follow with recommendations cont with above upon d/c wounds healing overall improving (2) Sepsis Assessment & Plan: IV abx as per ID trend labs improving wounds unlikely etiology likely respiratory imaging noted and okay abnormal lft's stable PICC on Abx in ICU for desaturation CXR with consolidation cont with frequent suctioning d/c planning g j via GI daughter wants close attention to wounds and management to ensure healing Evidence of left lower lobe pneumonia, also previously demonstrated Gastrostomy in good position Mild diastasis of the rectus abdominis musculature again demonstrated Retrosacral decubitus changes, better depicted on prior exam which included the pelvis Small hiatal hernia with evidence of trace gastroesophageal reflux Discussed with GI. Recommend GJ family still pending decision transfuse prbc prn monitor h/h monitor bm LFTs improving trending down (3) Feeding by G-tube Assessment & Plan: DAILY ESTIMATED NEEDS: Needs based on Pulmonary, wounds, bedbound/ 61kg adj 25-30 kcals/kg 4534-0164 total kcals 1.25-2 g protein/kg 76-122 g total protein 25-30 mL/kg 1572-4486 total fluid mLs NUTRITION DIAGNOSIS: * Increased kcal/prot needs R/T wound healing as evidenced by BL buttocks and sacral wound photos, refer to eval. * Swallowing difficulty R/T respiratory status as evidenced by pt on T-collar, s/p G-J conversion CURRENT TF:Glucerna 1.5 @ 50ml/hr x 24 hrs ENTERAL NUTRITION RECOMMENDATIONS: Glucerna 1.5 @ 50ml/hr x 24 hrs to provide 1200ml, 1800 kcal, 99g pro, 911ml free H2O - Maintain at current rate as tolerated to meet 100% est needs - HOB over 30 degrees - INCREASE water flush of 170ml q 6 hrs ADDITIONAL RECOMMENDATIONS: 1) RE-calibrate bedscale wt: fluctuating daily wts (108#-136# last 6 days) 2) Wound healing: Add Cristian 1pkt BID w/ continued good TF tolerance. 3) Increase water flushes, monitor for signs of water deficits 4) Monitor BGs closely, need for NISS -> now w/ improved BGs 5) Monitor for continued good TF tolerance 6) Monitor K : elev K on 03/25, s/p Kdur BID, now dc'ed. (4) Chronic vegetative state Assessment & Plan: incontinence of urine and stool. can soil dressings. nurses doing great job with monitoring and changing prn (5) Leukocytosis Walter Madera Apr 12, 2019 10:59
--- NOTE | 2019-04-12 11:41 | Infectious Diseases Prog Note ---
Assessment/Plan Assessment/Plan A 1. Providencia & Klebsiella pneumonia treated 2. respiratory failure 3. hypertension 4. CVA 5. dementia 6. sacral decubitus ulcer 7. rectal VRE colonization 8. Anemia 9. Proteus UTI 10. Acute renal failure 11. Leukocytosis resolved P 1.Observe off antibiotic 2. Frequent suctioning 3. Remove PICC line before discharge Subjective ROS Limited/Unobtainable: Yes Constitutional: Denies: fever Allergies: Coded Allergies: CODEINE (Verified Allergy, Unknown, HIVES, 09/15/09) Objective Vital Signs Last 24 Hour Vital Signs Date Time Temp Pulse Resp B/P (MAP) Pulse Ox O2 Delivery O2 Flow Rate FiO2 04/12/19 11:00 86 25 116/52 (73) 97 04/12/19 10:40 86 22 99 T-Piece 5.0 28 86 25 97 04/12/19 10:00 86 30 122/55 (77) 97 04/12/19 09:00 84 23 126/61 (82) 98 04/12/19 08:00 5.0 28 04/12/19 08:00 T-piece 5.0 T-piece 5.0 04/12/19 08:00 98.4 84 24 115/54 (74) 97 04/12/19 07:00 98.0 87 27 121/55 (77) 96 04/12/19 06:48 87 24 99 T-Piece 5.0 28 86 26 97 04/12/19 06:38 97 T-Piece 5.0 28 04/12/19 06:00 83 24 124/55 (78) 98 04/12/19 05:00 86 28 128/52 (77) 97 04/12/19 04:00 82 23 120/56 (77) 98 04/12/19 04:00 T-piece 5.0 T-piece 5.0 04/12/19 04:00 5.0 28 04/12/19 04:00 86 04/12/19 03:11 88 25 99 T-Piece 5.0 28 04/12/19 03:01 86 23 97 T-Piece 5.0 28 04/12/19 03:00 98.6 87 27 116/66 (83) 97 04/12/19 02:00 85 27 110/53 (72) 96 04/12/19 01:13 99 T-Piece 5.0 28 04/12/19 01:00 86 26 114/54 (74) 97 04/12/19 00:00 T-piece 5.0 T-piece 5.0 04/12/19 00:00 87 26 106/58 (74) 96 04/11/19 23:37 85 24 100 T-Piece 5.0 28 04/11/19 23:26 85 26 99 T-Piece 5.0 28 04/11/19 23:00 98.6 86 26 112/54 (73) 97 04/11/19 22:00 85 26 107/48 (67) 98 04/11/19 21:30 87 25 108/52 (70) 97 04/11/19 21:00 88 23 116/52 (73) 98 04/11/19 20:00 5.0 28 04/11/19 20:00 79 04/11/19 20:00 98.1 87 23 123/56 (78) 97 04/11/19 20:00 T-piece 5.0 T-piece 5.0 04/11/19 19:39 82 21 99 T-Piece 5.0 28 04/11/19 19:29 80 23 98 T-Piece 5.0 28 04/11/19 19:29 98 T-Piece 5.0 28 04/11/19 19:00 81 24 111/52 (71) 98 04/11/19 18:30 82 23 129/60 (83) 98 04/11/19 18:00 94 16 137/55 (82) 99 04/11/19 17:00 94 24 131/58 (82) 97 04/11/19 16:00 T-piece 5.0 T-piece 5.0 04/11/19 16:00 98.6 84 26 119/57 (77) 97 04/11/19 16:00 82 04/11/19 16:00 5.0 28 04/11/19 15:43 84 22 100 T-Piece 5.0 28 83 24 98 04/11/19 15:00 85 24 120/60 (80) 96 04/11/19 14:00 89 22 133/57 (82) 98 04/11/19 13:00 85 20 126/55 (78) 98 04/11/19 12:59 97 T-Piece 5.0 28 04/11/19 12:30 90 24 125/54 (77) 98 04/11/19 12:00 82 04/11/19 12:00 5.0 28 04/11/19 12:00 T-piece 5.0 T-piece 5.0 04/11/19 12:00 98.7 84 28 107/49 (68) 96 Height (Feet): 5 Height (Inches): 3.00 Weight (Pounds): 116 General Appearance: no acute distress HEENT: status post trach Respiratory/Chest: lungs clear, other - on T bar Cardiovascular: normal rate, other - PICC line Abdomen: soft, non tender, other - GJ tube Extremities: no edema Neurologic/Psychiatric: unresponsiveness, aphasia Current Medications Medications (Trade) Dose Ordered Sig/Maicol Route PRN Reason Start Time Stop Time Status Last Admin Dose Admin Acetaminophen (Tylenol) 650 mg Q6H PRN GT Mild Pain/Temp > 100.5 03/23/19 15:15 04/22/19 15:14 04/09/19 21:07 Albuterol/ Ipratropium (Albuterol/ Ipratropium) 3 ml Q4HRT HHN 04/10/19 03:00 04/15/19 02:59 04/12/19 10:31 Atropine Sulfate (Atropine Opth Adriana) 1 drop THREE TIMES A DAY SL 04/08/19 09:00 05/07/19 20:59 04/12/19 08:44 Chlorhexidine Gluconate (Cesilia-Hex 2%) 1 applic DAILY@2000 TOPIC 04/12/19 20:00 05/12/19 19:59 Folic Acid (Folate) 1 mg DAILY GT 04/08/19 09:00 05/08/19 08:59 04/12/19 08:44 Heparin Sodium (Porcine) (Heparin 5000 units/ml) 5,000 units EVERY 12 HOURS SUBQ 04/01/19 10:00 05/01/19 09:59 04/12/19 08:47 Hydralazine HCl (Apresoline) 25 mg Q6H PRN ORAL SBP above 150 04/06/19 02:45 05/06/19 02:44 04/06/19 11:15 Lansoprazole (Prevacid) 30 mg Q12HR GT 03/29/19 09:00 1/24/20 20:59 04/12/19 08:44 Levetiracetam (Keppra) 750 mg Q12HR GT 04/07/19 21:00 05/07/19 20:59 04/12/19 08:44 Ondansetron HCl (Zofran) 4 mg Q4H PRN IVP Nausea & Vomiting 03/18/19 18:15 04/17/19 18:14 03/21/19 08:27 Chauncey Liriano MD Apr 12, 2019 11:40
--- NOTE | 2019-04-12 11:42 | General Progress Note ---
Assessment/Plan Problem List: (1) Seizure ICD Codes: R56.9 - Unspecified convulsions SNOMED: 50298908 (2) Anemia ICD Codes: D64.9 - Anemia, unspecified SNOMED: 297413878 Qualifiers: Qualified Codes: D64.9 - Anemia, unspecified (3) Sepsis ICD Codes: A41.9 - Sepsis, unspecified organism SNOMED: 46002563, 912400448 Qualifiers: Qualified Codes: A41.9 - Sepsis, unspecified organism (4) Respiratory failure with hypoxia ICD Codes: J96.91 - Respiratory failure, unspecified with hypoxia SNOMED: 26158250723042134 Qualifiers: Qualified Codes: J96.21 - Acute and chronic respiratory failure with hypoxia (5) HCAP (healthcare-associated pneumonia) ICD Codes: J18.9 - Pneumonia, unspecified organism SNOMED: 637898661, 457739466 (6) Sacral decubitus ulcer ICD Codes: L89.159 - Pressure ulcer of sacral region, unspecified stage SNOMED: 040041454 (7) HTN (hypertension) ICD Codes: I10 - Essential (primary) hypertension SNOMED: 44003672 (8) Chronic vegetative state ICD Codes: R40.3 - Persistent vegetative state SNOMED: 80646320 (9) Chronic respiratory failure ICD Codes: J96.10 - Chronic respiratory failure, unspecified whether with hypoxia or hypercapnia SNOMED: 55441603 (10) Limited mobility ICD Codes: Z74.09 - Other reduced mobility SNOMED: 5737032 Status: stable, progressing Assessment/Plan: vent as needed resp rx suctioning j tube feeds g port to gravity skin care sz rx monitor lfts- going up bowel regime dc planning Subjective ROS Limited/Unobtainable: No Constitutional: Reports: malaise, weakness HEENT: Reports: no symptoms Cardiovascular: Reports: chest pain Respiratory: Reports: cough, shortness of breath, sputum Gastrointestinal/Abdominal: Reports: difficulty swallowing Genitourinary: Reports: no symptoms Neurologic/Psychiatric: Reports: pre-existing deficit, seizure Endocrine: Reports: no symptoms Hematologic/Lymphatic: Reports: no symptoms Allergies: Coded Allergies: CODEINE (Verified Allergy, Unknown, HIVES, 09/15/09) All Systems: reviewed and negative except above Subjective no events. no reports of bleeding. tolerating feeds, no vomiting. minimal secretions. no szs LFTS going up again Objective Last 24 Hour Vital Signs Date Time Temp Pulse Resp B/P (MAP) Pulse Ox O2 Delivery O2 Flow Rate FiO2 04/12/19 11:00 86 25 116/52 (73) 97 04/12/19 10:40 86 22 99 T-Piece 5.0 28 86 25 97 04/12/19 10:00 86 30 122/55 (77) 97 04/12/19 09:00 84 23 126/61 (82) 98 04/12/19 08:00 5.0 28 04/12/19 08:00 T-piece 5.0 T-piece 5.0 04/12/19 08:00 98.4 84 24 115/54 (74) 97 04/12/19 07:00 98.0 87 27 121/55 (77) 96 04/12/19 06:48 87 24 99 T-Piece 5.0 28 86 26 97 04/12/19 06:38 97 T-Piece 5.0 28 04/12/19 06:00 83 24 124/55 (78) 98 04/12/19 05:00 86 28 128/52 (77) 97 04/12/19 04:00 82 23 120/56 (77) 98 04/12/19 04:00 T-piece 5.0 T-piece 5.0 04/12/19 04:00 5.0 28 04/12/19 04:00 86 04/12/19 03:11 88 25 99 T-Piece 5.0 28 04/12/19 03:01 86 23 97 T-Piece 5.0 28 04/12/19 03:00 98.6 87 27 116/66 (83) 97 04/12/19 02:00 85 27 110/53 (72) 96 04/12/19 01:13 99 T-Piece 5.0 28 04/12/19 01:00 86 26 114/54 (74) 97 04/12/19 00:00 T-piece 5.0 T-piece 5.0 04/12/19 00:00 87 26 106/58 (74) 96 04/11/19 23:37 85 24 100 T-Piece 5.0 28 04/11/19 23:26 85 26 99 T-Piece 5.0 28 04/11/19 23:00 98.6 86 26 112/54 (73) 97 04/11/19 22:00 85 26 107/48 (67) 98 04/11/19 21:30 87 25 108/52 (70) 97 04/11/19 21:00 88 23 116/52 (73) 98 04/11/19 20:00 5.0 28 04/11/19 20:00 79 04/11/19 20:00 98.1 87 23 123/56 (78) 97 04/11/19 20:00 T-piece 5.0 T-piece 5.0 04/11/19 19:39 82 21 99 T-Piece 5.0 28 04/11/19 19:29 80 23 98 T-Piece 5.0 28 04/11/19 19:29 98 T-Piece 5.0 28 04/11/19 19:00 81 24 111/52 (71) 98 04/11/19 18:30 82 23 129/60 (83) 98 04/11/19 18:00 94 16 137/55 (82) 99 04/11/19 17:00 94 24 131/58 (82) 97 04/11/19 16:00 T-piece 5.0 T-piece 5.0 04/11/19 16:00 98.6 84 26 119/57 (77) 97 04/11/19 16:00 82 04/11/19 16:00 5.0 28 04/11/19 15:43 84 22 100 T-Piece 5.0 28 83 24 98 04/11/19 15:00 85 24 120/60 (80) 96 04/11/19 14:00 89 22 133/57 (82) 98 04/11/19 13:00 85 20 126/55 (78) 98 04/11/19 12:59 97 T-Piece 5.0 28 04/11/19 12:30 90 24 125/54 (77) 98 04/11/19 12:00 82 04/11/19 12:00 5.0 28 04/11/19 12:00 T-piece 5.0 T-piece 5.0 04/11/19 12:00 98.7 84 28 107/49 (68) 96 Intake and Output 04/11/19 04/12/19 19:00 07:00 Intake Total 1445 ml 1380 ml Output Total 325 ml 825 ml Balance 1120 ml 555 ml Free Water 300 ml 300 ml Tube Feeding 845 ml 780 ml Other 300 ml 300 ml Output Urine Total 100 ml 375 ml Other 225 ml 450 ml # Voids 3 Height (Feet): 5 Height (Inches): 3.00 Weight (Pounds): 116 Objective General Appearance: WD/WN, confused. on trach collar Neck: supple Cardiovascular: normal rate, regular rhythm Respiratory/Chest: chest wall non-tender, rhonchi - bilaterally(minimal) Abdomen: normal bowel sounds, non tender, soft, no organomegaly Edema: no edema noted Arm (L), no edema noted Arm (R), no edema noted Leg (L), no edema noted Leg (R), no edema noted Pedal (L), no edema noted Pedal (R), no edema noted Generalized Neurologic: disoriented, unresponsive, aphasia Irvin Beltrán MD Apr 12, 2019 11:41
--- NOTE | 2019-04-12 12:00 | NUR ---
NURSE NOTES: Patient sleeping with no sign of acute distress. Patient remains arousable to name but does not track or attempt to communicate. Patient remains on trach to T-piece with 28% FiO2. Patient continues to have moderate secretions both tracheal and orally. Patient suctioned both via the trach and orally at this time. Oral care performed. Will continue to monitor and suction as needed. Right upper arm PICC line remains patent, asymptomatic, and saline locked at this time. Gastrostomy/jejunostomy tube remain patent, asymptomatic, and functional. Gastrostomy tube draining to gravity at this time. Jejunostomy tube running tube feeding of vital AF at 65mL/hr at this time. patient tolerating feeding. Next 100mL flush due at [address]. [address] and functional at this time. All wound dressing dry and intact at this time. Patient bed in low position with bed alarm on and call light in reach. Patient repositioned and oral care performed. Will continue to monitor.
--- NOTE | 2019-04-12 13:34 | Nephrology Progress Note ---
Assessment/Plan Problem List: (1) Acute renal failure (ARF) Assessment: Cr stable (2) Chronic respiratory failure (3) Anemia (4) Sepsis Assessment Acute renal failure Respiratory failure - Trach Low Mag- Low k , Low Na Anemia UTI / Sepsis Proteinuria / HypoAlbuminemia high Trigs Sz decubs bed bound DNR Plan Transfused previously now has JT bolus Albumin as needed K and Mag and Phos supplement as needed Hydrate as needed Urine studies avoid Nephrotoxics mag K Phos supplements as needed monitor renal parameters Subjective ROS Limited/Unobtainable: Yes Objective Objective Last 24 Hour Vital Signs Date Time Temp Pulse Resp B/P (MAP) Pulse Ox O2 Delivery O2 Flow Rate FiO2 04/12/19 13:12 98 T-Piece 5.0 28 04/12/19 12:00 98.3 84 25 114/51 (72) 96 04/12/19 12:00 5.0 28 04/12/19 12:00 T-piece 5.0 T-piece 5.0 04/12/19 11:00 86 25 116/52 (73) 97 04/12/19 10:40 86 22 99 T-Piece 5.0 28 86 25 97 04/12/19 10:00 86 30 122/55 (77) 97 04/12/19 09:00 84 23 126/61 (82) 98 04/12/19 08:00 5.0 28 04/12/19 08:00 T-piece 5.0 T-piece 5.0 04/12/19 08:00 98.4 84 24 115/54 (74) 97 04/12/19 08:00 84 04/12/19 07:00 98.0 87 27 121/55 (77) 96 04/12/19 06:48 87 24 99 T-Piece 5.0 28 86 26 97 04/12/19 06:38 97 T-Piece 5.0 28 04/12/19 06:00 83 24 124/55 (78) 98 04/12/19 05:00 86 28 128/52 (77) 97 04/12/19 04:00 82 23 120/56 (77) 98 04/12/19 04:00 T-piece 5.0 T-piece 5.0 04/12/19 04:00 5.0 28 04/12/19 04:00 86 04/12/19 03:11 88 25 99 T-Piece 5.0 28 04/12/19 03:01 86 23 97 T-Piece 5.0 28 04/12/19 03:00 98.6 87 27 116/66 (83) 97 04/12/19 02:00 85 27 110/53 (72) 96 04/12/19 01:13 99 T-Piece 5.0 28 04/12/19 01:00 86 26 114/54 (74) 97 04/12/19 00:00 T-piece 5.0 T-piece 5.0 04/12/19 00:00 87 26 106/58 (74) 96 04/11/19 23:37 85 24 100 T-Piece 5.0 28 04/11/19 23:26 85 26 99 T-Piece 5.0 28 04/11/19 23:00 98.6 86 26 112/54 (73) 97 04/11/19 22:00 85 26 107/48 (67) 98 04/11/19 21:30 87 25 108/52 (70) 97 04/11/19 21:00 88 23 116/52 (73) 98 04/11/19 20:00 5.0 28 04/11/19 20:00 79 04/11/19 20:00 98.1 87 23 123/56 (78) 97 04/11/19 20:00 T-piece 5.0 T-piece 5.0 04/11/19 19:39 82 21 99 T-Piece 5.0 28 04/11/19 19:29 80 23 98 T-Piece 5.0 28 04/11/19 19:29 98 T-Piece 5.0 28 04/11/19 19:00 81 24 111/52 (71) 98 04/11/19 18:30 82 23 129/60 (83) 98 04/11/19 18:00 94 16 137/55 (82) 99 04/11/19 17:00 94 24 131/58 (82) 97 04/11/19 16:00 T-piece 5.0 T-piece 5.0 04/11/19 16:00 98.6 84 26 119/57 (77) 97 04/11/19 16:00 82 04/11/19 16:00 5.0 28 04/11/19 15:43 84 22 100 T-Piece 5.0 28 83 24 98 04/11/19 15:00 85 24 120/60 (80) 96 04/11/19 14:00 89 22 133/57 (82) 98 Intake and Output 04/11/19 04/12/19 19:00 07:00 Intake Total 1445 ml 1380 ml Output Total 325 ml 825 ml Balance 1120 ml 555 ml Free Water 300 ml 300 ml Tube Feeding 845 ml 780 ml Other 300 ml 300 ml Output Urine Total 100 ml 375 ml Other 225 ml 450 ml # Voids 3 Height (Feet): 5 Height (Inches): 3.00 Weight (Pounds): 116 General Appearance: no apparent distress Objective no change Eric Cortez MD Apr 12, 2019 13:34
--- NOTE | 2019-04-12 14:00 | NUR ---
NURSE NOTES: Vital signs stable. Patient repositioned. oral and tracheal suction performed. Will continue to monitor.
--- NOTE | 2019-04-12 15:13 | Pulmonolgy Critical Care Note ---
Critical Care - Asmt/Plan Assessment/Plan: Pulmonary CCM Progress Note Assessment/Plan Impression: history of Sepsis history of Pneumonia Trach, G tube, Hypertension, Cardiac disease, Dementia, Previous CVA, Seizure disorder, Respiratory failure with hypoxia Anemia, Sacral ulcer renal cyst chronic pulmonary congestion Plan continue to monitor airway off vent and monitor as is oxygen low flow aspiration precautions to continue elevate head and monitor secretions DNR. No CPR. ICU care reviewed meds noted off load all changes noted and discussed hope to transfer to [place] if family agrees medications/laboratory data/nursing notes/ICU care reviewed in detail note reviewed and edited care discussed with RN and RT Subjective Allergies: Coded Allergies: CODEINE Subjective respiratory care noted ICU care reviewed supportive care noted and reviewed RT care reviewed overnight care noted findings reviewed and discussed in detail with nursing and RT Objective Vital Signs Noted Objective WDWN NAD contracted off vent reduced breath sounds bilaterally with some rhonchi; no wheeze [id number] without MRG NABS nontender no HSM no CC minimal nonfocal nonverbal trach and gt reviewed and edited Laboratory Tests Noted Critical Care - Objective Last 24 Hour Vital Signs Date Time Temp Pulse Resp B/P (MAP) Pulse Ox O2 Delivery O2 Flow Rate FiO2 04/12/19 13:12 98 T-Piece 5.0 28 04/12/19 12:00 98.3 84 25 114/51 (72) 96 04/12/19 12:00 5.0 28 04/12/19 12:00 T-piece 5.0 T-piece 5.0 04/12/19 11:00 86 25 116/52 (73) 97 04/12/19 10:40 86 22 99 T-Piece 5.0 28 86 25 97 04/12/19 10:00 86 30 122/55 (77) 97 04/12/19 09:00 84 23 126/61 (82) 98 04/12/19 08:00 5.0 28 04/12/19 08:00 T-piece 5.0 T-piece 5.0 04/12/19 08:00 98.4 84 24 115/54 (74) 97 04/12/19 08:00 84 04/12/19 07:00 98.0 87 27 121/55 (77) 96 04/12/19 06:48 87 24 99 T-Piece 5.0 28 86 26 97 04/12/19 06:38 97 T-Piece 5.0 28 04/12/19 06:00 83 24 124/55 (78) 98 04/12/19 05:00 86 28 128/52 (77) 97 04/12/19 04:00 82 23 120/56 (77) 98 04/12/19 04:00 T-piece 5.0 T-piece 5.0 04/12/19 04:00 5.0 28 04/12/19 04:00 86 04/12/19 03:11 88 25 99 T-Piece 5.0 28 04/12/19 03:01 86 23 97 T-Piece 5.0 28 04/12/19 03:00 98.6 87 27 116/66 (83) 97 04/12/19 02:00 85 27 110/53 (72) 96 04/12/19 01:13 99 T-Piece 5.0 28 04/12/19 01:00 86 26 114/54 (74) 97 04/12/19 00:00 T-piece 5.0 T-piece 5.0 04/12/19 00:00 87 26 106/58 (74) 96 04/11/19 23:37 85 24 100 T-Piece 5.0 28 04/11/19 23:26 85 26 99 T-Piece 5.0 28 04/11/19 23:00 98.6 86 26 112/54 (73) 97 04/11/19 22:00 85 26 107/48 (67) 98 04/11/19 21:30 87 25 108/52 (70) 97 04/11/19 21:00 88 23 116/52 (73) 98 04/11/19 20:00 5.0 28 04/11/19 20:00 79 04/11/19 20:00 98.1 87 23 123/56 (78) 97 04/11/19 20:00 T-piece 5.0 T-piece 5.0 04/11/19 19:39 82 21 99 T-Piece 5.0 28 04/11/19 19:29 80 23 98 T-Piece 5.0 28 04/11/19 19:29 98 T-Piece 5.0 28 04/11/19 19:00 81 24 111/52 (71) 98 04/11/19 18:30 82 23 129/60 (83) 98 04/11/19 18:00 94 16 137/55 (82) 99 04/11/19 17:00 94 24 131/58 (82) 97 04/11/19 16:00 T-piece 5.0 T-piece 5.0 04/11/19 16:00 98.6 84 26 119/57 (77) 97 04/11/19 16:00 82 04/11/19 16:00 5.0 28 04/11/19 15:43 84 22 100 T-Piece 5.0 28 83 24 98 Accucheck: 135 Critical Care - Subjective ROS Limited/Unobtainable: No FI02: 28 Vent Support Mode: CPAP Vent Tidal Volume: 450 Sputum Amount: Moderate PEEP: 5.0 PIP: 19 Tube Feeding Amount: 65 I&O: Intake and Output 04/11/19 04/12/19 19:00 07:00 Intake Total 1445 ml 1380 ml Output Total 325 ml 825 ml Balance 1120 ml 555 ml Free Water 300 ml 300 ml Tube Feeding 845 ml 780 ml Other 300 ml 300 ml Output Urine Total 100 ml 375 ml Other 225 ml 450 ml # Voids 3 ET-Tube: 6.0 Bg Moffett MD Apr 12, 2019 15:13
--- NOTE | 2019-04-12 16:00 | NUR ---
NURSE NOTES: Patient sleeping with no sign of acute distress. Patient remains arousable to name but does not track or attempt to communicate. Patient remains on trach to T-piece with 28% FiO2. Patient continues to have moderate secretions both tracheal and orally. Patient suctioned both via the trach and orally at this time. Oral care performed. Will continue to monitor and suction as needed. Right upper arm PICC line remains patent, asymptomatic, and saline locked at this time. Gastrostomy/jejunostomy tube remain patent, asymptomatic, and functional. Gastrostomy tube draining to gravity at this time. Jejunostomy tube running tube feeding of vital AF at 65mL/hr at this time. patient tolerating feeding. Next 100mL flush due at 1700. All wound dressing changed at this time. Patient bed in low position with bed alarm on and call light in reach. Patient repositioned, bed bath performed, and oral care performed. Lotion applied as patient's skin is dry. Purewick replaced. Will continue to monitor.
--- NOTE | 2019-04-12 18:00 | NUR ---
NURSE NOTES: Vital signs stable. Patient repositioned. oral and tracheal suction performed. Will continue to monitor.
--- NOTE | 2019-04-12 19:27 | NUR ---
RESPIRATORY NOTE: Received pt on 28% Cool Aerosol via T-piece. Pt is trach-dependent w/ a cuffed, Shiley 6 XLT tube, cuff is currently deflated. Pt is asleep, responds to stimuli. B/S flory. rhonchi, sxn small amounts of thin/frothy, clear-white secretions. [place]ubag & spare trach kit at bedside. Pt resting comfortably, in no apparent distress. Will continue to monitor pt.
--- NOTE | 2019-04-12 19:30 | NUR ---
NURSE NOTES: Received patient from JEANNINE Pitts. Pt is obtunded, vss, ad in no acute distress. Patient is on T-piece, Shiley 6 XLT at 28% with a PRN vent. G-tube patent and draining, J-tube running Vital AF 1.2 t goal. Skin issues noted and badges clean. PICC on right upper arm is patent, clean and with no signs of infection. Bed at its lowest position, call light in reach and x2 bed rails are up. Will continue to monitor.
[2019-04-12] MEDS ORDERED: Dyna-Hex 2% Top Sol 2oz TOPIC SCH ×2 (20:00)
--- NOTE | 2019-04-12 20:30 | NUR ---
NURSE NOTES: Patient suctioned with scant secretion and oral provided. Patient tolerated tx well.
[2019-04-12] MEDS: Dyna-Hex 2% Top Sol 2oz TOPIC SCH (20:44)
[2019-04-13] VITALS (24 sets, daily range): BP systolic 108–142; BP diastolic 43–70
--- NOTE | 2019-04-13 00:08 | NUR ---
NURSE NOTES: Patient resting well with no sign of distress. Patient repositioned often.
[2019-04-13] MEDS: Acetaminophen 650mg/20.3ml GT PRN (01:53)
--- NOTE | 2019-04-13 02:19 | NUR ---
NURSE NOTES: Dressing for wound on patients left hand replaced. Wound is red, moist, full thickness with sloth. Patient tolerated treatment well. Dressing secure and capillary refill on left hand is < 3 seconds.
[2019-04-13] MEDS: Albuterol/Ipratropium 3ml neb HHN SCH ×6 (02:57→22:54)
--- NOTE | 2019-04-13 04:00 | Progress Note ---
DATE: 04/11/2019 CARDIOLOGY PROGRESS NOTE Late entry for April 11, 2019. SUBJECTIVE: No change in condition. Tolerating feedings. No signs of bleeding. Monitored sinus rhythm. OBJECTIVE: VITAL SIGNS: Blood pressure 122/48, pulse 80, and respiratory rate 24. LUNGS: Few rhonchi. ABDOMEN: . GJ tube intact. CARDIAC: Regular. Normal S1 and S2. EXTREMITIES: Trace edema. LABORATORY DATA: White count 10 and hemoglobin 11. Sodium is 145, potassium 4.1, BUN 66, and creatinine 1.2. IMPRESSION: 1. Increasing prerenal azotemia. 2. No signs of acute congestive heart failure. 3. Stable cardiac rhythm. 4. No signs of acute blood loss. PLAN: 1. Consider additional hydration by IV route if continued prerenal state. 2. No additional cardiovascular medications presently indicated. 3. We will follow closely. Bg Hagen M.D. DR: PIYUSH JOB#: [id number] CC:
--- NOTE | 2019-04-13 04:00 | Progress Note ---
DATE: 04/12/2019 CARDIOLOGY PROGRESS NOTE SUBJECTIVE: The patient has no new change in condition. She remains on a T-piece. OBJECTIVE: VITAL SIGNS: Stable, blood pressure 116/52, pulse 86, respirations 25, no fevers. NECK: Thin trach secretions. HEART: Regular rhythm and rate. Normal S1, S2. ABDOMEN: Soft. GJ tube intact. EXTREMITIES: No edema. IMPRESSION: 1. Prerenal azotemia. 2. Transaminitis. 3. Mild protein-calorie malnutrition. 4. Chronic diastolic congestive heart failure. 5. Respiratory failure. 6. Prerenal azotemia. PLAN: 1. Recheck laboratory studies. 2. Consider additional hydration. 3. Follow up liver function studies. 4. Respiratory hygiene. 5. No additional cardiovascular medications planned at this time. Bg Hagen M.D. DR: IOANA JOB#: [id number] CC:
[2019-04-13 06:32] LABS: BASOPHILS % (AUTO) 0.7 % (0.0-2.0); HEMATOCRIT 36.3 % (37.0-47.0); HEMOGLOBIN 11.4 G/DL (12.0-16.0); LYMPHOCYTES % (AUTO) 35.4 % (20.0-45.0); MEAN CORPUSCULAR VOLUME 92 FL (80-99); MONOCYTES % (AUTO) 3.9 % (1.0-10.0); PLATELET COUNT 204 K/UL (150-450); RED BLOOD COUNT 3.94 M/UL (4.20-5.40); RED CELL DISTRIBUTION WIDTH 15.6 % (11.6-14.8); WHITE BLOOD COUNT 8.1 K/UL (4.8-10.8)
--- NOTE | 2019-04-13 06:42 | NUR ---
NURSE NOTES: Patient is in bed resting with no acute distress and no suction need at this time. Patient secretions were scant during suctioning and need for suction has reduced from pervious night shifts.
[2019-04-13 07:03] LABS: ALANINE AMINOTRANSFERASE 110 U/L (12-78); ALBUMIN 3.2 G/DL (3.4-5.0); ALBUMIN/GLOBULIN RATIO 0.6 (1.0-2.7); ALKALINE PHOSPHATASE 159 U/L (46-116); ANION GAP 8 mmol/L (5-15); ASPARTATE AMINO TRANSFERASE 60 U/L (15-37); BILIRUBIN,TOTAL 0.2 MG/DL (0.2-1.0); BLOOD UREA NITROGEN 59 mg/dL (7-18); CALCIUM 9.3 MG/DL (8.5-10.1); CARBON DIOXIDE 30 MMOL/L (21-32); CHLORIDE 108 MMOL/L (98-107); POTASSIUM 4.4 MMOL/L (3.5-5.1); SODIUM 145 MMOL/L (136-145)
--- NOTE | 2019-04-13 07:25 | NUR ---
HAND-OFF: Report given to JEANNINE Pitts.
--- NOTE | 2019-04-13 07:26 | NUR ---
NURSE NOTES: Received patient from JEANNINE Mario. Patient sleeping at this time. Patient arousable to name but does not track or communicate. Patient trach to T piece with 28% FIO2. Patient tolerating with 97% SpO2 at this time. Patient continues to have moderate secretions as reported by scrap materials buyer RN. Patient breathing sounds clear at this time. Will continue to monitor and suction as needed. Patient has right upper arm PICC line that is patent, asymptomatic, and saline locked at this time. Dressing intact. Patient has gastrostomy/jejunostomy tube that is patent, asymptomatic, and running tube feeding of vital AF at 65mL/hr through the J tube and draining to gravity from the G tube. There is an order for sterile water flush of both ports Q4Hr. Will follow up and flush per protocol. Patient has upper extremities contracture at the elbow and fingers and lower extremities contractures with foot drop. Patient has bilateral ischium and sacral old/healed/resolved pressure injury with dressing dry and intact at this time. Patient has Optifoam dressing on bilateral heel for protection. heels floated. Patient on low air loss mattress for skin protection. Patient clean and dry. Patient bed in low position with bed alarm on and call light in reach at this time. patient oral care, tracheal, ad oral suction done at this time. Patient repositioned. Will continue to monitor. Dr Cortez notified yesterday AM that patient's liver enzymes (AST and ALT) are trending up. These levels continue to trend up today. Will ensure that MD is aware when he rounds on the patient.
--- NOTE | 2019-04-13 08:20 | NUR ---
NURSE NOTES: Spoke with Dr Beltrán when he rounded on the patient. Notified him that patient has not had BM since 04/10/19. Dr Beltrán reported that he wound order stool softener for the patient.
--- NOTE | 2019-04-13 08:36 | Pulmonology Progress Note ---
Assessment/Plan Assessment/Plan Impression: history of Sepsis history of Pneumonia Trach, G tube, Hypertension, Cardiac disease, Dementia, Previous CVA, Seizure disorder, Respiratory failure with hypoxia Anemia, Sacral ulcer renal cyst chronic pulmonary congestion Plan continue to monitor airway off vent and monitor as is oxygen low flow aspiration precautions to continue elevate head and monitor secretions DNR. No CPR. ICU care reviewed meds noted off load all changes noted and discussed hope to transfer to [place] if family agrees medications/laboratory data/nursing notes/ICU care reviewed in detail note reviewed and edited care discussed with RN and RT Subjective Allergies: Coded Allergies: CODEINE (Verified Allergy, Unknown, HIVES, 09/15/09) Subjective respiratory care and RT care noted d/w with primary and ICU team ICU care issues discussed bed bound and obtunded findings reviewed and discussed Objective Last 24 Hour Vital Signs Date Time Temp Pulse Resp B/P (MAP) Pulse Ox O2 Delivery O2 Flow Rate FiO2 04/13/19 07:32 100 T-Piece 5.0 28 04/13/19 07:32 80 20 100 T-Piece 5.0 28 77 22 100 04/13/19 07:00 80 23 110/56 (74) 99 04/13/19 06:00 98.8 84 21 140/64 (89) 100 04/13/19 05:00 84 24 98 04/13/19 05:00 84 24 128/62 (84) 98 04/13/19 04:00 T-piece 5.0 T-piece 5.0 04/13/19 04:00 81 04/13/19 04:00 5.0 28 04/13/19 04:00 79 26 142/64 (90) 99 04/13/19 03:07 85 26 98 T-Piece 5.0 28 04/13/19 03:00 98.6 88 24 123/59 (80) 100 04/13/19 02:57 88 27 99 T-Piece 5.0 28 04/13/19 02:00 93 28 127/70 (89) 98 04/13/19 01:11 97 T-Piece 5.0 28 04/13/19 01:00 88 28 116/55 (75) 96 04/13/19 00:00 90 29 118/53 (74) 96 04/13/19 00:00 88 04/13/19 00:00 T-piece 5.0 T-piece 5.0 04/12/19 23:30 99.0 87 30 113/48 (69) 96 04/12/19 23:15 84 24 99 T-Piece 5.0 28 04/12/19 23:02 80 27 98 T-Piece 5.0 28 04/12/19 23:00 99.0 87 30 113/48 (69) 96 04/12/19 22:00 88 28 114/49 (70) 97 04/12/19 21:00 87 28 116/48 (70) 97 04/12/19 20:30 98.7 86 27 109/49 (69) 96 04/12/19 20:00 5.0 28 04/12/19 20:00 86 04/12/19 20:00 T-piece 5.0 T-piece 5.0 04/12/19 20:00 85 26 118/46 (70) 97 04/12/19 19:33 83 26 99 T-Piece 5.0 28 04/12/19 19:23 97 T-Piece 5.0 28 04/12/19 19:23 85 24 97 T-Piece 5.0 28 04/12/19 19:00 84 25 122/71 (88) 97 04/12/19 18:00 85 25 113/49 (70) 96 04/12/19 17:00 80 21 128/56 (80) 99 04/12/19 16:00 98.7 84 24 129/56 (80) 99 04/12/19 16:00 5.0 28 04/12/19 16:00 85 04/12/19 16:00 T-piece 5.0 T-piece 5.0 04/12/19 15:52 88 28 98 T-Piece 5.0 28 87 31 97 04/12/19 15:00 84 22 130/56 (80) 98 04/12/19 14:00 86 23 133/57 (82) 98 04/12/19 13:12 98 T-Piece 5.0 28 04/12/19 13:00 81 23 122/62 (82) 98 04/12/19 12:00 98.3 84 25 114/51 (72) 96 04/12/19 12:00 88 04/12/19 12:00 5.0 28 04/12/19 12:00 T-piece 5.0 T-piece 5.0 04/12/19 11:00 86 25 116/52 (73) 97 04/12/19 10:40 86 22 99 T-Piece 5.0 28 86 25 97 04/12/19 10:00 86 30 122/55 (77) 97 04/12/19 09:00 84 23 126/61 (82) 98 Intake and Output 04/12/19 04/13/19 19:00 07:00 Intake Total 1315 ml 1430 ml Output Total 1050 ml 615 ml Balance 265 ml 815 ml Free Water 300 ml 350 ml Tube Feeding 715 ml 780 ml Other 300 ml 300 ml Output Urine Total 300 ml 315 ml Other 750 ml 300 ml # Voids 2 1 Objective WDWN NAD contracted off vent reduced breath sounds bilaterally without rhonchi or wheeze [id number] without MRG NABS nontender no HSM no CC trace edema same nonfocal nonverbal trach and gt reviewed and edited Laboratory Tests 04/13/19 05:03: White Blood Count 8.1, Red Blood Count 3.94L, Hemoglobin 11.4L, Hematocrit 36.3L , Mean Corpuscular Volume 92, Mean Corpuscular Hemoglobin 29.1, Mean Corpuscular Hemoglobin Concent 31.5L, Red Cell Distribution Width 15.6H, Platelet Count 204, Mean Platelet Volume 5.5L, Neutrophils (%) (Auto) 56.0, Lymphocytes (%) (Auto) 35.4, Monocytes (%) (Auto) 3.9, Eosinophils (%) (Auto) 4.0H, Basophils (%) (Auto) 0.7, Sodium Level 145, Potassium Level 4.4, Chloride Level 108H, Carbon Dioxide Level 30, Anion Gap 8, Blood Urea Nitrogen 59H, Creatinine 1.0, Estimat Glomerular Filtration Rate , Glucose Level 144H, Calcium Level 9.3, Magnesium Level 2.4, Total Bilirubin 0.2, Aspartate Amino Transf (AST/SGOT) 60H, Alanine Aminotransferase (ALT/SGPT) 110H, Alkaline Phosphatase 159H, Pro-B-Type Natriuretic Peptide 87, Total Protein 8.6H, Albumin 3.2L, Globulin 5.4, Albumin/Globulin Ratio 0.6L Current Medications Medications (Trade) Dose Ordered Sig/Maicol Route PRN Reason Start Time Stop Time Status Last Admin Dose Admin Acetaminophen (Tylenol) 650 mg Q6H PRN GT Mild Pain/Temp > 100.5 03/23/19 15:15 04/22/19 15:14 04/13/19 01:53 Albuterol/ Ipratropium (Albuterol/ Ipratropium) 3 ml Q4HRT HHN 04/10/19 03:00 04/15/19 02:59 04/13/19 07:32 Atropine Sulfate (Atropine Opth Adriana) 1 drop THREE TIMES A DAY SL 04/08/19 09:00 05/07/19 20:59 04/12/19 18:27 Chlorhexidine Gluconate (Cesilia-Hex 2%) 1 applic DAILY@1999 TOPIC 04/12/19 20:00 05/12/19 19:59 04/12/19 20:44 Folic Acid (Folate) 1 mg DAILY GT 04/08/19 09:00 05/08/19 08:59 04/12/19 08:44 Heparin Sodium (Porcine) (Heparin 5000 units/ml) 5,000 units EVERY 12 HOURS SUBQ 04/01/19 10:00 05/01/19 09:59 04/12/19 20:45 Hydralazine HCl (Apresoline) 25 mg Q6H PRN ORAL SBP above 150 04/06/19 02:45 05/06/19 02:44 04/06/19 11:15 Lansoprazole (Prevacid) 30 mg Q12HR GT 03/29/19 09:00 04/24/19 20:59 04/12/19 20:44 Levetiracetam (Keppra) 750 mg Q12HR GT 04/07/19 21:00 05/07/19 20:59 04/12/19 20:44 Ondansetron HCl (Zofran) 4 mg Q4H PRN IVP Nausea & Vomiting 03/18/19 18:15 04/17/19 18:14 03/21/19 08:27 Amaury Chan MD Apr 13, 2019 08:36
[2019-04-13] MEDS: Heparin 5000 units/ml inj SUBQ SCH ×2 (08:57→20:54)
--- NOTE | 2019-04-13 10:00 | NUR ---
NURSE NOTES: Vital signs stable. No sign of acute distress. Patient repositioned. Oral and tracheal suctioning done.
--- NOTE | 2019-04-13 11:05 | Infectious Diseases Prog Note ---
"Assessment/Plan Assessment/Plan antibiotics : none A 1. klebsiella | providencia pneumonia s/p rx 2. respiratory failure 3. hypertension 4. CVA 5. dementia 6. sacral decubitus ulcer 7. rectal VRE colonization P 1. observe off antibiotics 2. dc planned Subjective ROS Limited/Unobtainable: Yes Allergies: Coded Allergies: CODEINE (Verified Allergy, Unknown, HIVES, 09/15/09) Objective Vital Signs Last 24 Hour Vital Signs Date Time Temp Pulse Resp B/P (MAP) Pulse Ox O2 Delivery O2 Flow Rate FiO2 04/13/19 10:00 90 21 141/61 (87) 96 04/13/19 09:00 83 23 128/56 (80) 99 04/13/19 08:00 5.0 28 04/13/19 08:00 98.7 81 23 122/60 (80) 99 04/13/19 08:00 T-piece 5.0 T-piece 5.0 04/13/19 07:32 100 T-Piece 5.0 28 04/13/19 07:32 80 20 100 T-Piece 5.0 28 77 22 100 04/13/19 07:00 80 23 110/56 (74) 99 04/13/19 06:00 98.8 84 21 140/64 (89) 100 04/13/19 05:00 84 24 98 04/13/19 05:00 84 24 128/62 (84) 98 04/13/19 04:00 T-piece 5.0 T-piece 5.0 04/13/19 04:00 81 04/13/19 04:00 5.0 28 04/13/19 04:00 79 26 142/64 (90) 99 04/13/19 03:07 85 26 98 T-Piece 5.0 28 04/13/19 03:00 98.6 88 24 123/59 (80) 100 04/13/19 02:57 88 27 99 T-Piece 5.0 28 04/13/19 02:00 93 28 127/70 (89) 98 04/13/19 01:11 97 T-Piece 5.0 28 04/13/19 01:00 88 28 116/55 (75) 96 04/13/19 00:00 90 29 118/53 (74) 96 04/13/19 00:00 88 04/13/19 00:00 T-piece 5.0 T-piece 5.0 04/12/19 23:30 99.0 87 30 113/48 (69) 96 04/12/19 23:15 84 24 99 T-Piece 5.0 28 04/12/19 23:02 80 27 98 T-Piece 5.0 28 04/12/19 23:00 99.0 87 30 113/48 (69) 96 04/12/19 22:00 88 28 114/49 (70) 97 04/12/19 21:00 87 28 116/48 (70) 97 04/12/19 20:30 98.7 86 27 109/49 (69) 96 04/12/19 20:00 5.0 28 04/12/19 20:00 86 04/12/19 20:00 T-piece 5.0 T-piece 5.0 04/12/19 20:00 85 26 118/46 (70) 97 04/12/19 19:33 83 26 99 T-Piece 5.0 28 04/12/19 19:23 97 T-Piece 5.0 28 04/12/19 19:23 85 24 97 T-Piece 5.0 28 04/12/19 19:00 84 25 122/71 (88) 97 04/12/19 18:00 85 25 113/49 (70) 96 04/12/19 17:00 80 21 128/56 (80) 99 04/12/19 16:00 98.7 84 24 129/56 (80) 99 04/12/19 16:00 5.0 28 04/12/19 16:00 85 04/12/19 16:00 T-piece 5.0 T-piece 5.0 04/12/19 15:52 88 28 98 T-Piece 5.0 28 87 31 97 04/12/19 15:00 84 22 130/56 (80) 98 04/12/19 14:00 86 23 133/57 (82) 98 04/12/19 13:12 98 T-Piece 5.0 28 04/12/19 13:00 81 23 122/62 (82) 98 04/12/19 12:00 98.3 84 25 114/51 (72) 96 04/12/19 12:00 88 04/12/19 12:00 5.0 28 04/12/19 12:00 T-piece 5.0 T-piece 5.0 Height (Feet): 5 Height (Inches): 3.00 Weight (Pounds): 118 HEENT: status post trach Respiratory/Chest: lungs clear Cardiovascular: normal rate, regular rhythm, no gallop/murmur Abdomen: soft, non tender, other - GT Extremities: no edema, other - right arm PICC Laboratory Tests Test 04/13/19 05:03 White Blood Count 8.1 K/UL (4.8-10.8) Red Blood Count 3.94 M/UL (4.20-5.40) L Hemoglobin 11.4 G/DL (12.0-16.0) L Hematocrit 36.3 % (37.0-47.0) L Mean Corpuscular Volume 92 FL (80-99) Mean Corpuscular Hemoglobin 29.1 PG (27.0-31.0) Mean Corpuscular Hemoglobin Concent 31.5 G/DL (32.0-36.0) L Red Cell Distribution Width 15.6 % (11.6-14.8) H Platelet Count 204 K/UL (150-450) Mean Platelet Volume 5.5 FL (6.5-10.1) L Neutrophils (%) (Auto) 56.0 % (45.0-75.0) Lymphocytes (%) (Auto) 35.4 % (20.0-45.0) Monocytes (%) (Auto) 3.9 % (1.0-10.0) Eosinophils (%) (Auto) 4.0 % (0.0-3.0) H Basophils (%) (Auto) 0.7 % (0.0-2.0) Sodium Level 145 MMOL/L (136-145) Potassium Level 4.4 MMOL/L (3.5-5.1) Chloride Level 108 MMOL/L (98-107) H Carbon Dioxide Level 30 MMOL/L (21-32) Anion Gap 8 mmol/L (5-15) Blood Urea Nitrogen 59 mg/dL (7-18) H Creatinine 1.0 MG/DL (0.55-1.30) Estimat Glomerular Filtration Rate mL/min (>60) Glucose Level 144 MG/DL (74-106) H Calcium Level 9.3 MG/DL (8.5-10.1) Magnesium Level 2.4 MG/DL (1.8-2.4) Total Bilirubin 0.2 MG/DL (0.2-1.0) Aspartate Amino Transf (AST/SGOT) 60 U/L (15-37) H Alanine Aminotransferase (ALT/SGPT) 110 U/L (12-78) H Alkaline Phosphatase 159 U/L (46-116) H Pro-B-Type Natriuretic Peptide 87 pg/mL (0-125) Total Protein 8.6 G/DL (6.4-8.2) H Albumin 3.2 G/DL (3.4-5.0) L Globulin 5.4 g/dL Albumin/Globulin Ratio 0.6 (1.0-2.7) L Current Medications Medications (Trade) Dose Ordered Sig/Maicol Route PRN Reason Start Time Stop Time Status Last Admin Dose Admin Acetaminophen (Tylenol) 650 mg Q6H PRN GT Mild Pain/Temp > 100.5 03/23/19 15:15 04/22/19 15:14 04/13/19 01:53 Albuterol/ Ipratropium (Albuterol/ Ipratropium) 3 ml Q4HRT HHN 04/10/19 03:00 04/15/19 02:59 04/13/19 07:32 Atropine Sulfate (Atropine Opth Adriana) 1 drop THREE TIMES A DAY SL 04/08/19 09:00 05/07/19 20:59 04/13/19 08:53 Chlorhexidine Gluconate (Cesilia-Hex 2%) 1 applic DAILY@199904/12/19 20:00 05/12/19 19:59 04/12/19 20:44 Folic Acid (Folate) 1 mg DAILY GT 04/08/19 09:00 05/08/19 08:59 04/13/19 08:53 Heparin Sodium (Porcine) (Heparin 5000 units/ml) 5,000 units EVERY 12 HOURS SUBQ 04/01/19 10:00 05/01/19 09:59 04/13/19 08:57 Hydralazine HCl (Apresoline) 25 mg Q6H PRN ORAL SBP above 150 04/06/19 02:45 05/06/19 02:44 04/06/19 11:15 Lansoprazole (Prevacid) 30 mg Q12HR GT 03/29/19 09:00 1/24/20 20:59 04/13/19 08:53 Levetiracetam (Keppra) 750 mg Q12HR GT 04/07/19 21:00 05/07/19 20:59 04/13/19 08:53 Ondansetron HCl (Zofran) 4 mg Q4H PRN IVP Nausea & Vomiting 03/18/19 18:15 04/17/19 18:14 03/21/19 08:27 Geovany Yang MD Apr 13, 2019 11:05"
--- NOTE | 2019-04-13 11:12 | General Progress Note ---
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 - Elevated glucose - elevated BUN/Cr - poor Prognosis Recommendations - daily sorbitol, and PRN sorbitol - Follow BUN/Cr - Cristian BID - antibiotic ointment to GJT site PRN - aspiration precautions - elevate HOB - Vital AF 1.2 - check q 6 hour FS - transfuse to keep Hg > 7 - J tube feeds - G tube drain Subjective Allergies: Coded Allergies: CODEINE (Verified Allergy, Unknown, HIVES, 09/15/09) Subjective above noted tolerating TF via J port d/w RN No BM x 3 days LFT rise noted Objective Last 24 Hour Vital Signs Date Time Temp Pulse Resp B/P (MAP) Pulse Ox O2 Delivery O2 Flow Rate FiO2 04/13/19 10:00 90 21 141/61 (87) 96 04/13/19 09:00 83 23 128/56 (80) 99 04/13/19 08:00 5.0 28 04/13/19 08:00 98.7 81 23 122/60 (80) 99 04/13/19 08:00 T-piece 5.0 T-piece 5.0 04/13/19 07:32 100 T-Piece 5.0 28 04/13/19 07:32 80 20 100 T-Piece 5.0 28 77 22 100 04/13/19 07:00 80 23 110/56 (74) 99 04/13/19 06:00 98.8 84 21 140/64 (89) 100 04/13/19 05:00 84 24 98 04/13/19 05:00 84 24 128/62 (84) 98 04/13/19 04:00 T-piece 5.0 T-piece 5.0 04/13/19 04:00 81 04/13/19 04:00 5.0 28 04/13/19 04:00 79 26 142/64 (90) 99 04/13/19 03:07 85 26 98 T-Piece 5.0 28 04/13/19 03:00 98.6 88 24 123/59 (80) 100 04/13/19 02:57 88 27 99 T-Piece 5.0 28 04/13/19 02:00 93 28 127/70 (89) 98 04/13/19 01:11 97 T-Piece 5.0 28 04/13/19 01:00 88 28 116/55 (75) 96 04/13/19 00:00 90 29 118/53 (74) 96 04/13/19 00:00 88 04/13/19 00:00 T-piece 5.0 T-piece 5.0 04/12/19 23:30 99.0 87 30 113/48 (69) 96 04/12/19 23:15 84 24 99 T-Piece 5.0 28 04/12/19 23:02 80 27 98 T-Piece 5.0 28 04/12/19 23:00 99.0 87 30 113/48 (69) 96 04/12/19 22:00 88 28 114/49 (70) 97 04/12/19 21:00 87 28 116/48 (70) 97 04/12/19 20:30 98.7 86 27 109/49 (69) 96 04/12/19 20:00 5.0 28 04/12/19 20:00 86 04/12/19 20:00 T-piece 5.0 T-piece 5.0 04/12/19 20:00 85 26 118/46 (70) 97 04/12/19 19:33 83 26 99 T-Piece 5.0 28 04/12/19 19:23 97 T-Piece 5.0 28 04/12/19 19:23 85 24 97 T-Piece 5.0 28 04/12/19 19:00 84 25 122/71 (88) 97 04/12/19 18:00 85 25 113/49 (70) 96 04/12/19 17:00 80 21 128/56 (80) 99 04/12/19 16:00 98.7 84 24 129/56 (80) 99 04/12/19 16:00 5.0 28 04/12/19 16:00 85 04/12/19 16:00 T-piece 5.0 T-piece 5.0 04/12/19 15:52 88 28 98 T-Piece 5.0 28 87 31 97 04/12/19 15:00 84 22 130/56 (80) 98 04/12/19 14:00 86 23 133/57 (82) 98 04/12/19 13:12 98 T-Piece 5.0 28 04/12/19 13:00 81 23 122/62 (82) 98 04/12/19 12:00 98.3 84 25 114/51 (72) 96 04/12/19 12:00 88 04/12/19 12:00 5.0 28 04/12/19 12:00 T-piece 5.0 T-piece 5.0 Intake and Output 04/12/19 04/13/19 19:00 07:00 Intake Total 1315 ml 1430 ml Output Total 1050 ml 615 ml Balance 265 ml 815 ml Free Water 300 ml 350 ml Tube Feeding 715 ml 780 ml Other 300 ml 300 ml Output Urine Total 300 ml 315 ml Other 750 ml 300 ml # Voids 2 1 Laboratory Tests 04/13/19 05:03: White Blood Count 8.1, Red Blood Count 3.94L, Hemoglobin 11.4L, Hematocrit 36.3L , Mean Corpuscular Volume 92, Mean Corpuscular Hemoglobin 29.1, Mean Corpuscular Hemoglobin Concent 31.5L, Red Cell Distribution Width 15.6H, Platelet Count 204, Mean Platelet Volume 5.5L, Neutrophils (%) (Auto) 56.0, Lymphocytes (%) (Auto) 35.4, Monocytes (%) (Auto) 3.9, Eosinophils (%) (Auto) 4.0H, Basophils (%) (Auto) 0.7, Sodium Level 145, Potassium Level 4.4, Chloride Level 108H, Carbon Dioxide Level 30, Anion Gap 8, Blood Urea Nitrogen 59H, Creatinine 1.0, Estimat Glomerular Filtration Rate , Glucose Level 144H, Calcium Level 9.3, Magnesium Level 2.4, Total Bilirubin 0.2, Aspartate Amino Transf (AST/SGOT) 60H, Alanine Aminotransferase (ALT/SGPT) 110H, Alkaline Phosphatase 159H, Pro-B-Type Natriuretic Peptide 87, Total Protein 8.6H, Albumin 3.2L, Globulin 5.4, Albumin/Globulin Ratio 0.6L Height (Feet): 5 Height (Inches): 3.00 Weight (Pounds): 118 Objective Debilitated AA woman non-verbal, obtunded NCAT (+) trach coarse BS RR obese abd, (+) GJT no edema (+) contractured extremities Celio Vaughan MD Apr 13, 2019 11:12
[2019-04-13] MEDS ORDERED: Sorbitol Solution UD 30ml ORAL SCH (11:15)
[2019-04-13] MEDS ORDERED: Sorbitol Solution UD 30ml ORAL PRN (11:15)
--- NOTE | 2019-04-13 12:00 | NUR ---
NURSE NOTES: Patient sleeping at this time. Patient arousable to name but does not track with eyes or communicate. Patient remains on trach to T piece with 28% FIO2. Patient tolerating with 98% SpO2 at this time. Patient continues to have moderate secretions. Breathing sounds clear and unlabored at this time. Bilateral lower lobe lung sounds diminished. Bilateral upper lobes rhonchi noted. Will continue to monitor and suction as needed. Right upper arm PICC line remains patent, asymptomatic, and saline locked at this time. Dressing intact. Gastrostomy/jejunostomy tube remains patent, asymptomatic, and running tube feeding of vital AF at 60mL/hr through the J tube port and draining to gravity from the G tube. Will continue to flush with free water as ordered. All wounds covered with dressing, dry, and intact. Patient bed in low position with bed alarm on and call light in reach at this time. patient oral care, tracheal, ad oral suction done at this time. Patient repositioned. Will continue to monitor.
--- NOTE | 2019-04-13 12:22 | Nephrology Progress Note ---
Assessment/Plan Problem List: (1) Acute renal failure (ARF) Assessment: Cr stable (2) Chronic respiratory failure (3) Anemia (4) Sepsis Assessment Acute renal failure Respiratory failure - Trach Low Mag- Low k , Low Na Anemia UTI / Sepsis Proteinuria / HypoAlbuminemia high Trigs Sz decubs bed bound DNR Plan Transfused previously now has JT bolus Albumin as needed K and Mag and Phos supplement as needed Hydrate as needed Urine studies avoid Nephrotoxics mag K Phos supplements as needed monitor renal parameters Subjective ROS Limited/Unobtainable: Yes Objective Objective Last 24 Hour Vital Signs Date Time Temp Pulse Resp B/P (MAP) Pulse Ox O2 Delivery O2 Flow Rate FiO2 04/13/19 12:00 98.6 84 25 136/68 (90) 98 04/13/19 12:00 5.0 28 04/13/19 12:00 T-piece 5.0 T-piece 5.0 04/13/19 11:13 92 26 100 T-Piece 5.0 28 86 24 100 04/13/19 11:00 81 25 117/50 (72) 98 04/13/19 10:00 90 21 141/61 (87) 96 04/13/19 09:00 83 23 128/56 (80) 99 04/13/19 08:00 77 04/13/19 08:00 5.0 28 04/13/19 08:00 98.7 81 23 122/60 (80) 99 04/13/19 08:00 T-piece 5.0 T-piece 5.0 04/13/19 07:32 100 T-Piece 5.0 28 04/13/19 07:32 80 20 100 T-Piece 5.0 28 77 22 100 04/13/19 07:00 80 23 110/56 (74) 99 04/13/19 06:00 98.8 84 21 140/64 (89) 100 04/13/19 05:00 84 24 98 04/13/19 05:00 84 24 128/62 (84) 98 04/13/19 04:00 T-piece 5.0 T-piece 5.0 04/13/19 04:00 81 04/13/19 04:00 5.0 28 04/13/19 04:00 79 26 142/64 (90) 99 04/13/19 03:07 85 26 98 T-Piece 5.0 28 04/13/19 03:00 98.6 88 24 123/59 (80) 100 04/13/19 02:57 88 27 99 T-Piece 5.0 28 04/13/19 02:00 93 28 127/70 (89) 98 04/13/19 01:11 97 T-Piece 5.0 28 04/13/19 01:00 88 28 116/55 (75) 96 04/13/19 00:00 90 29 118/53 (74) 96 04/13/19 00:00 88 04/13/19 00:00 T-piece 5.0 T-piece 5.0 04/12/19 23:30 99.0 87 30 113/48 (69) 96 04/12/19 23:15 84 24 99 T-Piece 5.0 28 04/12/19 23:02 80 27 98 T-Piece 5.0 28 04/12/19 23:00 99.0 87 30 113/48 (69) 96 04/12/19 22:00 88 28 114/49 (70) 97 04/12/19 21:00 87 28 116/48 (70) 97 04/12/19 20:30 98.7 86 27 109/49 (69) 96 04/12/19 20:00 5.0 28 04/12/19 20:00 86 04/12/19 20:00 T-piece 5.0 T-piece 5.0 04/12/19 20:00 85 26 118/46 (70) 97 04/12/19 19:33 83 26 99 T-Piece 5.0 28 04/12/19 19:23 97 T-Piece 5.0 28 04/12/19 19:23 85 24 97 T-Piece 5.0 28 04/12/19 19:00 84 25 122/71 (88) 97 04/12/19 18:00 85 25 113/49 (70) 96 04/12/19 17:00 80 21 128/56 (80) 99 04/12/19 16:00 98.7 84 24 129/56 (80) 99 04/12/19 16:00 5.0 28 04/12/19 16:00 85 04/12/19 16:00 T-piece 5.0 T-piece 5.0 04/12/19 15:52 88 28 98 T-Piece 5.0 28 87 31 97 04/12/19 15:00 84 22 130/56 (80) 98 04/12/19 14:00 86 23 133/57 (82) 98 04/12/19 13:12 98 T-Piece 5.0 28 04/12/19 13:00 81 23 122/62 (82) 98 Intake and Output 04/12/19 04/13/19 19:00 07:00 Intake Total 1315 ml 1430 ml Output Total 1050 ml 615 ml Balance 265 ml 815 ml Free Water 300 ml 350 ml Tube Feeding 715 ml 780 ml Other 300 ml 300 ml Output Urine Total 300 ml 315 ml Other 750 ml 300 ml # Voids 2 1 Laboratory Tests 04/13/19 05:03: White Blood Count 8.1, Red Blood Count 3.94L, Hemoglobin 11.4L, Hematocrit 36.3L , Mean Corpuscular Volume 92, Mean Corpuscular Hemoglobin 29.1, Mean Corpuscular Hemoglobin Concent 31.5L, Red Cell Distribution Width 15.6H, Platelet Count 204, Mean Platelet Volume 5.5L, Neutrophils (%) (Auto) 56.0, Lymphocytes (%) (Auto) 35.4, Monocytes (%) (Auto) 3.9, Eosinophils (%) (Auto) 4.0H, Basophils (%) (Auto) 0.7, Sodium Level 145, Potassium Level 4.4, Chloride Level 108H, Carbon Dioxide Level 30, Anion Gap 8, Blood Urea Nitrogen 59H, Creatinine 1.0, Estimat Glomerular Filtration Rate , Glucose Level 144H, Calcium Level 9.3, Magnesium Level 2.4, Total Bilirubin 0.2, Aspartate Amino Transf (AST/SGOT) 60H, Alanine Aminotransferase (ALT/SGPT) 110H, Alkaline Phosphatase 159H, Pro-B-Type Natriuretic Peptide 87, Total Protein 8.6H, Albumin 3.2L, Globulin 5.4, Albumin/Globulin Ratio 0.6L Height (Feet): 5 Height (Inches): 3.00 Weight (Pounds): 118 Cardiovascular: tachycardia Respiratory/Chest: decreased breath sounds Abdomen: soft, distended Objective no change Eric Cortez MD Apr 13, 2019 12:22
--- NOTE | 2019-04-13 14:00 | NUR ---
NURSE NOTES: Vital signs stable. No sign of acute distress. Patient repositioned. Oral and tracheal suctioning done.
--- NOTE | 2019-04-13 15:20 | Surgery Progress Note ---
Surgery Progress Note Subjective Additional Comments stable Objective Last 24 Hour Vital Signs Date Time Temp Pulse Resp B/P (MAP) Pulse Ox O2 Delivery O2 Flow Rate FiO2 04/13/19 14:00 79 23 120/61 (80) 98 04/13/19 13:22 97 T-Piece 5.0 28 04/13/19 13:00 86 22 123/59 (80) 97 04/13/19 12:00 98.6 84 25 136/68 (90) 98 04/13/19 12:00 5.0 28 04/13/19 12:00 T-piece 5.0 T-piece 5.0 04/13/19 11:13 92 26 100 T-Piece 5.0 28 86 24 100 04/13/19 11:00 81 25 117/50 (72) 98 04/13/19 10:00 90 21 141/61 (87) 96 04/13/19 09:00 83 23 128/56 (80) 99 04/13/19 08:00 77 04/13/19 08:00 5.0 28 04/13/19 08:00 98.7 81 23 122/60 (80) 99 04/13/19 08:00 T-piece 5.0 T-piece 5.0 04/13/19 07:32 100 T-Piece 5.0 28 04/13/19 07:32 80 20 100 T-Piece 5.0 28 77 22 100 04/13/19 07:00 80 23 110/56 (74) 99 04/13/19 06:00 98.8 84 21 140/64 (89) 100 04/13/19 05:00 84 24 98 04/13/19 05:00 84 24 128/62 (84) 98 04/13/19 04:00 T-piece 5.0 T-piece 5.0 04/13/19 04:00 81 04/13/19 04:00 5.0 28 04/13/19 04:00 79 26 142/64 (90) 99 04/13/19 03:07 85 26 98 T-Piece 5.0 28 04/13/19 03:00 98.6 88 24 123/59 (80) 100 04/13/19 02:57 88 27 99 T-Piece 5.0 28 04/13/19 02:00 93 28 127/70 (89) 98 04/13/19 01:11 97 T-Piece 5.0 28 04/13/19 01:00 88 28 116/55 (75) 96 04/13/19 00:00 90 29 118/53 (74) 96 04/13/19 00:00 88 04/13/19 00:00 T-piece 5.0 T-piece 5.0 04/12/19 23:30 99.0 87 30 113/48 (69) 96 04/12/19 23:15 84 24 99 T-Piece 5.0 28 04/12/19 23:02 80 27 98 T-Piece 5.0 28 04/12/19 23:00 99.0 87 30 113/48 (69) 96 04/12/19 22:00 88 28 114/49 (70) 97 04/12/19 21:00 87 28 116/48 (70) 97 04/12/19 20:30 98.7 86 27 109/49 (69) 96 04/12/19 20:00 5.0 28 04/12/19 20:00 86 04/12/19 20:00 T-piece 5.0 T-piece 5.0 04/12/19 20:00 85 26 118/46 (70) 97 04/12/19 19:33 83 26 99 T-Piece 5.0 28 04/12/19 19:23 97 T-Piece 5.0 28 04/12/19 19:23 85 24 97 T-Piece 5.0 28 04/12/19 19:00 84 25 122/71 (88) 97 04/12/19 18:00 85 25 113/49 (70) 96 04/12/19 17:00 80 21 128/56 (80) 99 04/12/19 16:00 98.7 84 24 129/56 (80) 99 04/12/19 16:00 5.0 28 04/12/19 16:00 85 04/12/19 16:00 T-piece 5.0 T-piece 5.0 04/12/19 15:52 88 28 98 T-Piece 5.0 28 87 31 97 I&O Intake and Output 04/12/19 04/13/19 19:00 07:00 Intake Total 1315 ml 1430 ml Output Total 1050 ml 615 ml Balance 265 ml 815 ml Free Water 300 ml 350 ml Tube Feeding 715 ml 780 ml Other 300 ml 300 ml Output Urine Total 300 ml 315 ml Other 750 ml 300 ml # Voids 2 1 Dressing: other Wound: other Cardiovascular: RSR Respiratory: clear Abdomen: soft, non-tender, present bowel sounds Extremities: no edema, no tenderness, no cyanosis Laboratory Tests Test 04/13/19 05:03 White Blood Count 8.1 K/UL (4.8-10.8) Red Blood Count 3.94 M/UL (4.20-5.40) L Hemoglobin 11.4 G/DL (12.0-16.0) L Hematocrit 36.3 % (37.0-47.0) L Mean Corpuscular Volume 92 FL (80-99) Mean Corpuscular Hemoglobin 29.1 PG (27.0-31.0) Mean Corpuscular Hemoglobin Concent 31.5 G/DL (32.0-36.0) L Red Cell Distribution Width 15.6 % (11.6-14.8) H Platelet Count 204 K/UL (150-450) Mean Platelet Volume 5.5 FL (6.5-10.1) L Neutrophils (%) (Auto) 56.0 % (45.0-75.0) Lymphocytes (%) (Auto) 35.4 % (20.0-45.0) Monocytes (%) (Auto) 3.9 % (1.0-10.0) Eosinophils (%) (Auto) 4.0 % (0.0-3.0) H Basophils (%) (Auto) 0.7 % (0.0-2.0) Sodium Level 145 MMOL/L (136-145) Potassium Level 4.4 MMOL/L (3.5-5.1) Chloride Level 108 MMOL/L (98-107) H Carbon Dioxide Level 30 MMOL/L (21-32) Anion Gap 8 mmol/L (5-15) Blood Urea Nitrogen 59 mg/dL (7-18) H Creatinine 1.0 MG/DL (0.55-1.30) Estimat Glomerular Filtration Rate mL/min (>60) Glucose Level 144 MG/DL (74-106) H Calcium Level 9.3 MG/DL (8.5-10.1) Magnesium Level 2.4 MG/DL (1.8-2.4) Total Bilirubin 0.2 MG/DL (0.2-1.0) Aspartate Amino Transf (AST/SGOT) 60 U/L (15-37) H Alanine Aminotransferase (ALT/SGPT) 110 U/L (12-78) H Alkaline Phosphatase 159 U/L (46-116) H Pro-B-Type Natriuretic Peptide 87 pg/mL (0-125) Total Protein 8.6 G/DL (6.4-8.2) H Albumin 3.2 G/DL (3.4-5.0) L Globulin 5.4 g/dL Albumin/Globulin Ratio 0.6 (1.0-2.7) L Plan Problems: (1) Sacral decubitus ulcer Assessment & Plan: This is a 83-year-old female with multiple medical committees that is currently admitted for medical care and management and identified to have multiple wounds requiring care. On admission patient noted to have a resolved sacral decubitus ulcer. Has had prior care and is well-healed at this time. Will ensure it does not open up again. Patient has a right ischial decubitus ulcer that is resolved. Scar intact and well formed. Will monitor to ensure it does not open up again. Patient has a left ischial decubitus ulcer that can be identified to be stage IV with palpable bone that has been resolving as noted by the periwound tissue and scar but open area approximately 1 cm x 1.5 cm few millimeters deep to bone identified. Unsure if this is been to be completely healed prior and has since opened or if has been healing at this level. No foul odor no drainage was unsure local wound care until healed Bilateral heels soft without signs of injury Resolving pressure injury L ischium(L)1.8cm x (W)1cm.Scattered biofilm at base of wound. Edges flat and adherent with surrounding hyperpigmentation. No odor or exudate noted. Sacrum is pale pink with surrounding hyperpigmentation. Hyperpigmentation R ischium with small sheared area centrally.No areas of erythema or exudate noted. Both heels are soft but blanchable. Skin Assessed under collar of trach and no evidence of skin breakdown noted. All wound Tx. are effective and continued as ordered. Pt ahs an APM/eBlén mattress overlay and is being repositioned per protocols and per tolerance.No new skin concerns noted. Full thickness pressure injury L Ischium with small amt biofilm (L)1.8cm x (W) 1cm. Surrounding pink hyperpigmentation. No odor or exudate noted. [place] hyperpigmentation from previous wound noted to sacrum. Pt also noted to have Cat 2 Skin Tear dorsal L hand, L 5th metatarsal extending into palm of hand. 80% skin flap in situ.Both heels are dry firm and blanchable. No other skin concerns noted. R ischial wound has resolved. [place] epithelial with surrounding hyperpigmentation. from historical wound. Full thickness pressure injury L ischium. [place] granulation at base of wound. Borders are macerated with Surrounding hyperpigmentation.Small amt non-odorous serous exudate noted.(L)0.7cm x (W)0.8cm. Skin hyperpigmentation from historical wound noted to Sacrum. Small sheared area noted to sacrococcygeal area.(L)0.4cm x (W)0.3cm.Small amt sanguineous exudate noted. Reabsorbed blister with semi-detached dry necrotic cap noted to web space of L thumb and L index fingers extending into palm of L hand. No odor or exudate noted. Skin assessed under tracheal collar and no erythema or evidence of Skin Breakdown noted. NO new skin concerns noted . Good hand hygiene provided to both hands. R hand contracted and fisted. Fingernails trimmed. Wound care provided along with Primary nurse. Wound Tx continued as ordered. New order obtained from to apply Betadine to wound L hand Daily. Tx done as ordered. L hand wrapped with kerlix weaving kerlix between fingers to separate fingers. Moisture Barrier applied to sacrum ,R ischium. Each site covered with Optifoam drsg. Both lower ext washed and moisturized. [place] Skin Barrier applied to both heels.Each heel covered with Optifoam drsgs. Pt positioned with pillows and both heels off-loaded with pillow. Pt wounds are resolving. Loose necrotic cap within web space of L index finger and L thumb easily removed with gentle friction. Base of wound is hypergranular with 10% necrosis. Borders are macerated. Application of Silver Nitrate to hypergranular base done. [place] Skin Barrier applied to borders . Good hand hygiene provided. Wound covered with Abd pad. L hand wrapped with Kerlix weaving Kerlix between digitsof L hand. Pressure injury L ischium resolving. Base iof wound is pale pink and dry with surrounding hyperpigmentation and scar from previous wound. Hyperpigmentation with historical scars noted to Sacrum and R ischium. Both heels are soft and blanchable. Skin Assessed under trach collar and no evidence of skin breakdown noted. Tx.Plan: Apply Betadine to wound L hand. Cover with Gauze and wrap with Kerlix Daily and prn. Cleanse L ischial wound with Saline. Apply Therahoney. Apply Moisture Barrier periwound. Cover with Optifoam drsgevery 3 days and prn. Apply Moisture Barrier Paste to R ischium and Sacrum. Cover each area with Optifoam drsg. Change every 3 days and prn. Apply [place] Skin Barrier to both heels. Cover each heel with Optifoam drsg. Change every 7 days and prn. Cleanse Blister Dorsal and palm of L hand with saline. Versatel One Silicone Contact Layer(Applied). Apply Silvasorb Gel. Wrap with Kerlix Gauze.Change every 7 days and prn. Apply Moisture Barrier to sacrum. Cover with Optifoam drsg. Change every 3 days and prn. APM/BELÉN Mattress overlay. Reposition at least every 2hours or as tolerated. Off-load heels with pillow. Nutritional optimization We will monitor follow with recommendations cont with above upon d/c wounds healing overall improving (2) Sepsis Assessment & Plan: IV abx as per ID trend labs improving wounds unlikely etiology likely respiratory imaging noted and okay abnormal lft's stable PICC on Abx in ICU for desaturation CXR with consolidation cont with frequent suctioning d/c planning g j via GI daughter wants close attention to wounds and management to ensure healing Evidence of left lower lobe pneumonia, also previously demonstrated Gastrostomy in good position Mild diastasis of the rectus abdominis musculature again demonstrated Retrosacral decubitus changes, better depicted on prior exam which included the pelvis Small hiatal hernia with evidence of trace gastroesophageal reflux Discussed with GI. Recommend GJ family still pending decision transfuse prbc prn monitor h/h monitor bm LFTs improving trending down (3) Feeding by G-tube Assessment & Plan: DAILY ESTIMATED NEEDS: Needs based on Pulmonary, wounds, bedbound/ 61kg adj 25-30 kcals/kg [id number] total kcals 1.25-2 g protein/kg 76-122 g total protein 25-30 mL/kg 9577-3880 total fluid mLs NUTRITION DIAGNOSIS: * Increased kcal/prot needs R/T wound healing as evidenced by BL buttocks and sacral wound photos, refer to eval. * Swallowing difficulty R/T respiratory status as evidenced by pt on T-collar, s/p G-J conversion CURRENT TF:Glucerna 1.5 @ 50ml/hr x 24 hrs ENTERAL NUTRITION RECOMMENDATIONS: Glucerna 1.5 @ 50ml/hr x 24 hrs to provide 1200ml, 1800 kcal, 99g pro, 911ml free H2O - Maintain at current rate as tolerated to meet 100% est needs - HOB over 30 degrees - INCREASE water flush of 170ml q 6 hrs ADDITIONAL RECOMMENDATIONS: 1) RE-calibrate bedscale wt: fluctuating daily wts (108#-136# last 6 days) 2) Wound healing: Add Cristian 1pkt BID w/ continued good TF tolerance. 3) Increase water flushes, monitor for signs of water deficits 4) Monitor BGs closely, need for NISS -> now w/ improved BGs 5) Monitor for continued good TF tolerance 6) Monitor K : elev K on 03/25, s/p Kdur BID, now dc'ed. (4) Chronic vegetative state Assessment & Plan: incontinence of urine and stool. can soil dressings. nurses doing great job with monitoring and changing prn (5) Leukocytosis Walter Madera Apr 13, 2019 15:20
--- NOTE | 2019-04-13 16:00 | NUR ---
NURSE NOTES: Patient sleeping at this time. Patient remains arousable to name. Patient remains on trach to T piece with 28% FIO2. Patient tolerating with 98% SpO2 at this time. Patient continues to have moderate secretions. Breathing sounds clear and unlabored at this time. Will continue to monitor and suction as needed. Right upper arm PICC line remains patent, asymptomatic, and saline locked at this time. Gastrostomy/jejunostomy tube remains patent, asymptomatic, and running tube feeding of vital AF at 60mL/hr through the J tube port and draining to gravity from the G tube. Will continue to flush with free water as ordered. All wounds covered with dressing, dry, and intact. Sacral and Ischial wound dressings changed at this time. Patient bed in low position with bed alarm on and call light in reach at this time. Patient oral care and tracheal/oral suction done at this time. Bed bath performed. Patient repositioned. Will continue to monitor.
--- NOTE | 2019-04-13 17:24 | General Progress Note ---
Assessment/Plan Problem List: (1) Seizure ICD Codes: R56.9 - Unspecified convulsions SNOMED: 19253492 (2) Anemia ICD Codes: D64.9 - Anemia, unspecified SNOMED: 079543957 Qualifiers: Qualified Codes: D64.9 - Anemia, unspecified (3) Sepsis ICD Codes: A41.9 - Sepsis, unspecified organism SNOMED: 67779846, 440167996 Qualifiers: Qualified Codes: A41.9 - Sepsis, unspecified organism (4) Respiratory failure with hypoxia ICD Codes: J96.91 - Respiratory failure, unspecified with hypoxia SNOMED: 03635637908753658 Qualifiers: Qualified Codes: J96.21 - Acute and chronic respiratory failure with hypoxia (5) HCAP (healthcare-associated pneumonia) ICD Codes: J18.9 - Pneumonia, unspecified organism SNOMED: 455214117, 164437012 (6) Sacral decubitus ulcer ICD Codes: L89.159 - Pressure ulcer of sacral region, unspecified stage SNOMED: 990420807 (7) HTN (hypertension) ICD Codes: I10 - Essential (primary) hypertension SNOMED: 32830655 (8) Chronic vegetative state ICD Codes: R40.3 - Persistent vegetative state SNOMED: 08314120 (9) Chronic respiratory failure ICD Codes: J96.10 - Chronic respiratory failure, unspecified whether with hypoxia or hypercapnia SNOMED: 07741663 (10) Limited mobility ICD Codes: Z74.09 - Other reduced mobility SNOMED: 6800835 Status: stable, progressing Assessment/Plan: vent as needed resp rx suctioning j tube feeds g port to gravity skin care sz rx monitor lfts- going up bowel regime dc planning Subjective ROS Limited/Unobtainable: No Constitutional: Reports: malaise, weakness HEENT: Reports: no symptoms Cardiovascular: Reports: no symptoms Respiratory: Reports: cough, shortness of breath, sputum Gastrointestinal/Abdominal: Reports: difficulty swallowing Genitourinary: Reports: no symptoms Neurologic/Psychiatric: Reports: pre-existing deficit, seizure Endocrine: Reports: no symptoms Hematologic/Lymphatic: Reports: anemia Allergies: Coded Allergies: CODEINE (Verified Allergy, Unknown, HIVES, 09/15/09) All Systems: reviewed and negative except above Subjective no events. no reports of bleeding. tolerating feeds, no vomiting. minimal secretions. no szs LFTS going up again constipated Objective Last 24 Hour Vital Signs Date Time Temp Pulse Resp B/P (MAP) Pulse Ox O2 Delivery O2 Flow Rate FiO2 04/13/19 17:00 82 24 142/64 (90) 97 04/13/19 16:00 98.6 82 25 121/55 (77) 96 04/13/19 16:00 79 04/13/19 16:00 5.0 28 04/13/19 16:00 T-piece 5.0 T-piece 5.0 04/13/19 15:21 80 20 100 T-Piece 5.0 28 78 22 100 04/13/19 15:00 79 24 124/56 (78) 98 04/13/19 14:00 79 23 120/61 (80) 98 04/13/19 13:22 97 T-Piece 5.0 28 04/13/19 13:00 86 22 123/59 (80) 97 04/13/19 12:00 98.6 84 25 136/68 (90) 98 04/13/19 12:00 90 04/13/19 12:00 5.0 28 04/13/19 12:00 T-piece 5.0 T-piece 5.0 04/13/19 11:13 92 26 100 T-Piece 5.0 28 86 24 100 04/13/19 11:00 81 25 117/50 (72) 98 04/13/19 10:00 90 21 141/61 (87) 96 04/13/19 09:00 83 23 128/56 (80) 99 04/13/19 08:00 77 04/13/19 08:00 5.0 28 04/13/19 08:00 98.7 81 23 122/60 (80) 99 04/13/19 08:00 T-piece 5.0 T-piece 5.0 04/13/19 07:32 100 T-Piece 5.0 28 04/13/19 07:32 80 20 100 T-Piece 5.0 28 77 22 100 04/13/19 07:00 80 23 110/56 (74) 99 04/13/19 06:00 98.8 84 21 140/64 (89) 100 04/13/19 05:00 84 24 98 04/13/19 05:00 84 24 128/62 (84) 98 04/13/19 04:00 T-piece 5.0 T-piece 5.0 04/13/19 04:00 81 04/13/19 04:00 5.0 28 04/13/19 04:00 79 26 142/64 (90) 99 04/13/19 03:07 85 26 98 T-Piece 5.0 28 04/13/19 03:00 98.6 88 24 123/59 (80) 100 04/13/19 02:57 88 27 99 T-Piece 5.0 28 04/13/19 02:00 93 28 127/70 (89) 98 04/13/19 01:11 97 T-Piece 5.0 28 04/13/19 01:00 88 28 116/55 (75) 96 04/13/19 00:00 90 29 118/53 (74) 96 04/13/19 00:00 88 04/13/19 00:00 T-piece 5.0 T-piece 5.0 04/12/19 23:30 99.0 87 30 113/48 (69) 96 04/12/19 23:15 84 24 99 T-Piece 5.0 28 04/12/19 23:02 80 27 98 T-Piece 5.0 28 04/12/19 23:00 99.0 87 30 113/48 (69) 96 04/12/19 22:00 88 28 114/49 (70) 97 04/12/19 21:00 87 28 116/48 (70) 97 04/12/19 20:30 98.7 86 27 109/49 (69) 96 04/12/19 20:00 5.0 28 04/12/19 20:00 86 04/12/19 20:00 T-piece 5.0 T-piece 5.0 04/12/19 20:00 85 26 118/46 (70) 97 04/12/19 19:33 83 26 99 T-Piece 5.0 28 04/12/19 19:23 97 T-Piece 5.0 28 04/12/19 19:23 85 24 97 T-Piece 5.0 28 04/12/19 19:00 84 25 122/71 (88) 97 04/12/19 18:00 85 25 113/49 (70) 96 Intake and Output 04/12/19 04/13/19 19:00 07:00 Intake Total 1315 ml 1430 ml Output Total 425 ml 615 ml Balance 890 ml 815 ml Free Water 300 ml 350 ml Tube Feeding 715 ml 780 ml Other 300 ml 300 ml Output Urine Total 300 ml 315 ml Other 125 ml 300 ml # Voids 2 1 Laboratory Tests 04/13/19 05:03: White Blood Count 8.1, Red Blood Count 3.94L, Hemoglobin 11.4L, Hematocrit 36.3L , Mean Corpuscular Volume 92, Mean Corpuscular Hemoglobin 29.1, Mean Corpuscular Hemoglobin Concent 31.5L, Red Cell Distribution Width 15.6H, Platelet Count 204, Mean Platelet Volume 5.5L, Neutrophils (%) (Auto) 56.0, Lymphocytes (%) (Auto) 35.4, Monocytes (%) (Auto) 3.9, Eosinophils (%) (Auto) 4.0H, Basophils (%) (Auto) 0.7, Sodium Level 145, Potassium Level 4.4, Chloride Level 108H, Carbon Dioxide Level 30, Anion Gap 8, Blood Urea Nitrogen 59H, Creatinine 1.0, Estimat Glomerular Filtration Rate , Glucose Level 144H, Calcium Level 9.3, Magnesium Level 2.4, Total Bilirubin 0.2, Aspartate Amino Transf (AST/SGOT) 60H, Alanine Aminotransferase (ALT/SGPT) 110H, Alkaline Phosphatase 159H, Pro-B-Type Natriuretic Peptide 87, Total Protein 8.6H, Albumin 3.2L, Globulin 5.4, Albumin/Globulin Ratio 0.6L Height (Feet): 5 Height (Inches): 3.00 Weight (Pounds): 118 Objective General Appearance: WD/WN, confused. on trach collar Neck: supple Cardiovascular: normal rate, regular rhythm Respiratory/Chest: chest wall non-tender, rhonchi - bilaterally(minimal) Abdomen: normal bowel sounds, non tender, soft, no organomegaly Edema: no edema noted Arm (L), no edema noted Arm (R), no edema noted Leg (L), no edema noted Leg (R), no edema noted Pedal (L), no edema noted Pedal (R), no edema noted Generalized Neurologic: disoriented, unresponsive, aphasia Irvin Beltrán MD Apr 13, 2019 17:24
--- NOTE | 2019-04-13 18:00 | NUR ---
NURSE NOTES: Patient vital signs stable. Patient repositioned at this time. Oral and tracheal suction performed. Bed in low position with bed alarm on and call light in reach. Will continue to monitor.
--- NOTE | 2019-04-13 19:16 | NUR ---
HAND-OFF: Report given to JEANNINE Britt. Patient vital signs stable. Endorsed to follow up.
--- NOTE | 2019-04-13 19:30 | NUR ---
NURSE NOTES: Received report from JEANNINE Pitts. Pt is resting on the bed and obtunded. On trach to T piece with 28% FIO2 and SaO2 99% noted Given tracheal and oral suction. provided oral care. Patient breathing sounds clear at this time. Patient has right upper arm PICC line and dressing is clean and dry and patent. Patient has JG tube that is patent and running tube feeding of vital AF at 65cc/hr through the J tube and draining to gravity from the G tube. Keep HOB. Pt has dressing on bilateral ischium and sacral for protection. Floated bilateral heel with pillow. Patient on P-200 mattress for wound management. Changed position. Placed fall and seizure precaution. Will continue to monitor any change of condition. Addendum: 04/13/19 at 7024 by LONG PERALTA RN RN change from vital AF at 65cc/hr to 60cc/hr.
[2019-04-13] MEDS: Dyna-Hex 2% Top Sol 2oz TOPIC SCH (20:06)
--- NOTE | 2019-04-13 22:00 | NUR ---
NURSE NOTES: Pt is sleeping on the bed and no sign of acute distress noted. Given tracheal and oral suction. provided oral care. Repositioned. Will continue to monitor any moon of condition.
[2019-04-14] VITALS (24 sets, daily range): BP systolic 102–143; BP diastolic 41–63
--- NOTE | 2019-04-14 | NUR ---
NURSE NOTES: Pt is sleeping on the bed and no sign fo acute distress noted. Tolerated well with current O2 setting via T-piece and SaO2 97% noted. Suction was done. Changed position. Will continue to care plan.
--- NOTE | 2019-04-14 02:00 | NUR ---
NURSE NOTES: Pt is sleeping on the bed. V/S stable. No fever noted. on running with Vital AF @ 60cc/hr via J-tube and no residual noted. Draining to gravity from the G tube. Repositioned. Given tracheal and oral suction. Provided oral care. Will continue to monitor any change of condition.
[2019-04-14] MEDS: Albuterol/Ipratropium 3ml neb HHN SCH ×6 (03:13→22:40)
--- NOTE | 2019-04-14 04:00 | NUR ---
NURSE NOTES: Morning care was done. Cleaned Pt and applied lotion and cream. Change healing wound site dressing for protection. Given tracheal and oral suction. Oral care was done. Collected blood sample. On J-tube feeding and tolerated well and no residual noted. Repositioned. Placed fall and seizure precaution. Will continue to monitor any change of condition.
--- NOTE | 2019-04-14 04:45 | Progress Note ---
DATE: 04/13/2019 CARDIOLOGY PROGRESS NOTE SUBJECTIVE: No major change in condition. The patient remains on G-tube support. Monitored rhythm sinus. Liver function studies have been increasing. Constipation noted. Tolerating feedings. OBJECTIVE: VITAL SIGNS: Blood pressure 121/55, pulse 82, respiratory rate 25, and afebrile. LUNGS: Coarse breath sounds. CARDIAC: Regular rhythm and rate. Normal S1 and S2. ABDOMEN: Soft. EXTREMITIES: No edema. LABORATORY DATA: White count 8 and hemoglobin 11.4. Sodium 145, BUN 59, creatinine 1, bicarbonate 30, and potassium 4.4. Magnesium 2.4. IMPRESSION: 1. Transaminitis. 2. Mild protein-calorie malnutrition. 3. Prerenal azotemia, improved with some hydration started. 4. Hypertensive heart disease. 5. Chronic diastolic congestive heart failure. 6. Respiratory failure. PLAN: 1. Monitor hepatic function. 2. Adjust feedings. 3. Continue cautious hydration. Bg Hagen M.D. DR: CHARLEE JOB#: [id number] CC:
[2019-04-14 05:59] LABS: ALANINE AMINOTRANSFERASE 97 U/L (12-78); ALBUMIN 3.1 G/DL (3.4-5.0); ALBUMIN/GLOBULIN RATIO 0.6 (1.0-2.7); ALKALINE PHOSPHATASE 143 U/L (46-116); ANION GAP 8 mmol/L (5-15); ASPARTATE AMINO TRANSFERASE 45 U/L (15-37); BILIRUBIN,TOTAL 0.2 MG/DL (0.2-1.0); BLOOD UREA NITROGEN 61 mg/dL (7-18); CALCIUM 9.1 MG/DL (8.5-10.1); CARBON DIOXIDE 30 MMOL/L (21-32); CHLORIDE 106 MMOL/L (98-107); POTASSIUM 4.5 MMOL/L (3.5-5.1); SODIUM 144 MMOL/L (136-145)
--- NOTE | 2019-04-14 06:00 | NUR ---
NURSE NOTES: Pt is sleeping on the bed no sign of acute distress noted. Tolerated current J-tube feeding. Suction was done. Repositioned. Will continue to care of plan.
--- NOTE | 2019-04-14 07:15 | NUR ---
HAND-OFF: Report given to JEANNINE Howard. Pt is sleeping on the bed and no sign of acute distress noted. V/S stable. Dr. Vaughan visited and assessed Pt.
--- NOTE | 2019-04-14 07:16 | NUR ---
NURSE NOTES: Received report from JEANNINE Britt. Patient is obtunded. Afebrile. SR 70s on the monitor. Shiley 6 with FiO2 28%. GJ tube intact and Vital AF 1.2 60ml/hr running via J tube. Gtube by gravity. Purewick intact and connected to suction canister. Right upper arm PICC intact, clean with TKO. No distress/SOB noted. Kept dry, clean, comfortable and HOB>30. Will continue plan of care.
--- NOTE | 2019-04-14 07:18 | NUR ---
NURSE NOTES: Seen by Dr. Vaughan and assessed patient. No new orders at this time.
--- NOTE | 2019-04-14 07:55 | NUR ---
NURSE NOTES: Seen by Dr. Beltrán and assessed patient. No new orders at this time.
--- NOTE | 2019-04-14 08:34 | General Progress Note ---
Assessment/Plan Problem List: (1) Seizure ICD Codes: R56.9 - Unspecified convulsions SNOMED: 46054924 (2) Anemia ICD Codes: D64.9 - Anemia, unspecified SNOMED: 175127988 Qualifiers: Qualified Codes: D64.9 - Anemia, unspecified (3) Sepsis ICD Codes: A41.9 - Sepsis, unspecified organism SNOMED: 56794246, 494234355 Qualifiers: Qualified Codes: A41.9 - Sepsis, unspecified organism (4) Respiratory failure with hypoxia ICD Codes: J96.91 - Respiratory failure, unspecified with hypoxia SNOMED: 51235646884843528 Qualifiers: Qualified Codes: J96.21 - Acute and chronic respiratory failure with hypoxia (5) HCAP (healthcare-associated pneumonia) ICD Codes: J18.9 - Pneumonia, unspecified organism SNOMED: 287252415, 458948658 (6) Sacral decubitus ulcer ICD Codes: L89.159 - Pressure ulcer of sacral region, unspecified stage SNOMED: 813528121 (7) HTN (hypertension) ICD Codes: I10 - Essential (primary) hypertension SNOMED: 20215218 (8) Chronic vegetative state ICD Codes: R40.3 - Persistent vegetative state SNOMED: 03686335 (9) Chronic respiratory failure ICD Codes: J96.10 - Chronic respiratory failure, unspecified whether with hypoxia or hypercapnia SNOMED: 23538220 (10) Limited mobility ICD Codes: Z74.09 - Other reduced mobility SNOMED: 3353034 Status: stable, progressing Assessment/Plan: vent as needed resp rx suctioning j tube feeds g port to gravity skin care sz rx monitor lfts- going up bowel regime dc planning Subjective ROS Limited/Unobtainable: No Allergies: Coded Allergies: CODEINE (Verified Allergy, Unknown, HIVES, 09/15/09) Subjective no events. no reports of bleeding. tolerating feeds, no vomiting. minimal secretions. no szs LFTS going up again constipated Objective Last 24 Hour Vital Signs Date Time Temp Pulse Resp B/P (MAP) Pulse Ox O2 Delivery O2 Flow Rate FiO2 04/14/19 08:00 98.2 80 27 102/44 (63) 99 04/14/19 08:00 5.0 28 04/14/19 08:00 T-piece 5.0 T-piece 5.0 04/14/19 07:25 79 26 100 T-Piece 5.0 28 04/14/19 07:25 99 T-Piece 5.0 28 04/14/19 07:24 80 26 100 T-Piece 5.0 28 76 26 99 04/14/19 07:00 80 27 119/50 (73) 98 04/14/19 06:00 82 25 114/51 (72) 98 04/14/19 05:00 81 26 109/51 (70) 96 04/14/19 04:00 5.0 28 04/14/19 04:00 98.4 83 24 117/46 (69) 98 04/14/19 04:00 84 04/14/19 04:00 T-piece 5.0 T-piece 5.0 04/14/19 03:13 86 26 100 T-Piece 5.0 28 85 29 97 04/14/19 03:00 84 24 115/53 (73) 97 04/14/19 02:00 79 27 111/54 (73) 97 04/14/19 01:37 97 T-Piece 5.0 28 04/14/19 01:00 87 26 116/63 (80) 97 04/14/19 00:00 T-piece 5.0 T-piece 5.0 04/14/19 00:00 5.0 28 04/14/19 00:00 80 04/14/19 00:00 98.8 92 24 127/47 (73) 97 04/13/19 23:00 81 25 113/48 (69) 98 04/13/19 22:55 84 24 100 T-Piece 5.0 28 81 27 98 04/13/19 22:00 86 24 110/49 (69) 98 04/13/19 21:00 81 26 117/53 (74) 97 04/13/19 20:00 79 04/13/19 20:00 98.5 79 25 108/43 (64) 96 04/13/19 20:00 5.0 28 04/13/19 20:00 T-piece 5.0 T-piece 5.0 04/13/19 19:13 98 T-Piece 5.0 28 04/13/19 19:12 85 21 100 T-Piece 5.0 28 82 22 98 04/13/19 19:00 77 25 108/46 (66) 97 04/13/19 18:00 85 22 135/69 (91) 99 04/13/19 17:00 82 24 142/64 (90) 97 04/13/19 16:00 98.6 82 25 121/55 (77) 96 04/13/19 16:00 79 04/13/19 16:00 5.0 28 04/13/19 16:00 T-piece 5.0 T-piece 5.0 04/13/19 15:21 80 20 100 T-Piece 5.0 28 78 22 100 04/13/19 15:00 79 24 124/56 (78) 98 04/13/19 14:00 79 23 120/61 (80) 98 04/13/19 13:22 97 T-Piece 5.0 28 04/13/19 13:00 86 22 123/59 (80) 97 04/13/19 12:00 98.6 84 25 136/68 (90) 98 04/13/19 12:00 90 04/13/19 12:00 5.0 28 04/13/19 12:00 T-piece 5.0 T-piece 5.0 04/13/19 11:13 92 26 100 T-Piece 5.0 28 86 24 100 04/13/19 11:00 81 25 117/50 (72) 98 04/13/19 10:00 90 21 141/61 (87) 96 04/13/19 09:00 83 23 128/56 (80) 99 Intake and Output 04/13/19 04/14/19 19:00 07:00 Intake Total 1380 ml 920 ml Output Total 525 ml 750 ml Balance 855 ml 170 ml Free Water 300 ml 200 ml Tube Feeding 780 ml 720 ml Other 300 ml Output Urine Total 300 ml 500 ml Other 225 ml 250 ml Laboratory Tests 04/14/19 02:50: Sodium Level 144, Potassium Level 4.5, Chloride Level 106, Carbon Dioxide Level 30, Anion Gap 8, Blood Urea Nitrogen 61H, Creatinine 1.0, Estimat Glomerular Filtration Rate , Glucose Level 121H, Calcium Level 9.1, Total Bilirubin 0.2, Aspartate Amino Transf (AST/SGOT) 45H, Alanine Aminotransferase (ALT/SGPT) 97H, Alkaline Phosphatase 143H, Total Protein 8.3H, Albumin 3.1L, Globulin 5.2, Albumin/Globulin Ratio 0.6L Height (Feet): 5 Height (Inches): 3.00 Weight (Pounds): 123 Objective General Appearance: WD/WN, confused. on trach collar Neck: supple Cardiovascular: normal rate, regular rhythm Respiratory/Chest: chest wall non-tender, rhonchi - bilaterally(minimal) Abdomen: normal bowel sounds, non tender, soft, no organomegaly Edema: no edema noted Arm (L), no edema noted Arm (R), no edema noted Leg (L), no edema noted Leg (R), no edema noted Pedal (L), no edema noted Pedal (R), no edema noted Generalized Neurologic: disoriented, unresponsive, aphasia Irvin Beltrán MD Apr 14, 2019 08:34
--- NOTE | 2019-04-14 08:53 | Pulmonology Progress Note ---
Assessment/Plan Assessment/Plan Impression: history of Sepsis history of Pneumonia Trach, G tube, Hypertension, Cardiac disease, Dementia, Previous CVA, Seizure disorder, Respiratory failure with hypoxia Anemia, Sacral ulcer renal cyst chronic pulmonary congestion Plan support as able Vent PRN oxygen low flow aspiration precautions to continue elevate head and monitor secretions DNR. No CPR. ICU care reviewed meds noted off load as able nutrition monitor residual and reflux aspiration all changes noted and discussed hope to transfer to [place] if family agrees medications/laboratory data/nursing notes/ICU care reviewed in detail note reviewed and edited care discussed with RN and RT Subjective ROS Limited/Unobtainable: Yes Allergies: Coded Allergies: CODEINE (Verified Allergy, Unknown, HIVES, 09/15/09) Subjective overnight events noted; respiratory status reviewed d/w with primary and ICU team ICU care issues discussed bed bound and obtunded meds reviewed Objective Last 24 Hour Vital Signs Date Time Temp Pulse Resp B/P (MAP) Pulse Ox O2 Delivery O2 Flow Rate FiO2 04/14/19 08:00 98.2 80 27 102/44 (63) 99 04/14/19 08:00 5.0 28 04/14/19 08:00 T-piece 5.0 T-piece 5.0 04/14/19 07:25 79 26 100 T-Piece 5.0 28 04/14/19 07:25 99 T-Piece 5.0 28 04/14/19 07:24 80 26 100 T-Piece 5.0 28 76 26 99 04/14/19 07:00 80 27 119/50 (73) 98 04/14/19 06:00 82 25 114/51 (72) 98 04/14/19 05:00 81 26 109/51 (70) 96 04/14/19 04:00 5.0 28 04/14/19 04:00 98.4 83 24 117/46 (69) 98 04/14/19 04:00 84 04/14/19 04:00 T-piece 5.0 T-piece 5.0 04/14/19 03:13 86 26 100 T-Piece 5.0 28 85 29 97 04/14/19 03:00 84 24 115/53 (73) 97 04/14/19 02:00 79 27 111/54 (73) 97 04/14/19 01:37 97 T-Piece 5.0 28 04/14/19 01:00 87 26 116/63 (80) 97 04/14/19 00:00 T-piece 5.0 T-piece 5.0 04/14/19 00:00 5.0 28 04/14/19 00:00 80 04/14/19 00:00 98.8 92 24 127/47 (73) 97 04/13/19 23:00 81 25 113/48 (69) 98 04/13/19 22:55 84 24 100 T-Piece 5.0 28 81 27 98 04/13/19 22:00 86 24 110/49 (69) 98 04/13/19 21:00 81 26 117/53 (74) 97 04/13/19 20:00 79 04/13/19 20:00 98.5 79 25 108/43 (64) 96 04/13/19 20:00 5.0 28 04/13/19 20:00 T-piece 5.0 T-piece 5.0 04/13/19 19:13 98 T-Piece 5.0 28 04/13/19 19:12 85 21 100 T-Piece 5.0 28 82 22 98 04/13/19 19:00 77 25 108/46 (66) 97 04/13/19 18:00 85 22 135/69 (91) 99 04/13/19 17:00 82 24 142/64 (90) 97 04/13/19 16:00 98.6 82 25 121/55 (77) 96 04/13/19 16:00 79 04/13/19 16:00 5.0 28 04/13/19 16:00 T-piece 5.0 T-piece 5.0 04/13/19 15:21 80 20 100 T-Piece 5.0 28 78 22 100 04/13/19 15:00 79 24 124/56 (78) 98 04/13/19 14:00 79 23 120/61 (80) 98 04/13/19 13:22 97 T-Piece 5.0 28 04/13/19 13:00 86 22 123/59 (80) 97 04/13/19 12:00 98.6 84 25 136/68 (90) 98 04/13/19 12:00 90 04/13/19 12:00 5.0 28 04/13/19 12:00 T-piece 5.0 T-piece 5.0 04/13/19 11:13 92 26 100 T-Piece 5.0 28 86 24 100 04/13/19 11:00 81 25 117/50 (72) 98 04/13/19 10:00 90 21 141/61 (87) 96 04/13/19 09:00 83 23 128/56 (80) 99 Intake and Output 04/13/19 04/14/19 19:00 07:00 Intake Total 1380 ml 920 ml Output Total 525 ml 750 ml Balance 855 ml 170 ml Free Water 300 ml 200 ml Tube Feeding 780 ml 720 ml Other 300 ml Output Urine Total 300 ml 500 ml Other 225 ml 250 ml Objective WDWN NAD contracted off vent reduced breath sounds bilaterally without rhonchi or wheeze [id number] without MRG NABS nontender no HSM no CC trace edema same nonfocal nonverbal trach and gt reviewed and edited Laboratory Tests 04/14/19 02:50: Sodium Level 144, Potassium Level 4.5, Chloride Level 106, Carbon Dioxide Level 30, Anion Gap 8, Blood Urea Nitrogen 61H, Creatinine 1.0, Estimat Glomerular Filtration Rate , Glucose Level 121H, Calcium Level 9.1, Total Bilirubin 0.2, Aspartate Amino Transf (AST/SGOT) 45H, Alanine Aminotransferase (ALT/SGPT) 97H, Alkaline Phosphatase 143H, Total Protein 8.3H, Albumin 3.1L, Globulin 5.2, Albumin/Globulin Ratio 0.6L Current Medications Medications (Trade) Dose Ordered Sig/Maicol Route PRN Reason Start Time Stop Time Status Last Admin Dose Admin Acetaminophen (Tylenol) 650 mg Q6H PRN GT Mild Pain/Temp > 100.5 03/23/19 15:15 04/22/19 15:14 04/13/19 01:53 Albuterol/ Ipratropium (Albuterol/ Ipratropium) 3 ml Q4HRT HHN 04/10/19 03:00 04/15/19 02:59 04/14/19 07:24 Atropine Sulfate (Atropine Opth Adriana) 1 drop THREE TIMES A DAY SL 04/08/19 09:00 05/07/19 20:59 04/13/19 17:55 Chlorhexidine Gluconate (Cesilia-Hex 2%) 1 applic DAILY@1999 TOPIC 04/12/19 20:00 05/12/19 19:59 04/13/19 20:06 Folic Acid (Folate) 1 mg DAILY GT 04/08/19 09:00 05/08/19 08:59 04/13/19 08:53 Heparin Sodium (Porcine) (Heparin 5000 units/ml) 5,000 units EVERY 12 HOURS SUBQ 04/01/19 10:00 05/01/19 09:59 04/13/19 20:54 Hydralazine HCl (Apresoline) 25 mg Q6H PRN ORAL SBP above 150 04/06/19 02:45 05/06/19 02:44 04/06/19 11:15 Lansoprazole (Prevacid) 30 mg Q12HR GT 03/29/19 09:00 04/24/19 20:59 04/13/19 20:53 Levetiracetam (Keppra) 750 mg Q12HR GT 04/07/19 21:00 05/07/19 20:59 04/13/19 20:53 Ondansetron HCl (Zofran) 4 mg Q4H PRN IVP Nausea & Vomiting 03/18/19 18:15 04/17/19 18:14 03/21/19 08:27 Sorbitol (Sorbitol) 30 ml BIDPRN PRN ORAL Constipation 04/13/19 11:15 05/13/19 11:14 Sorbitol (Sorbitol) 30 ml DAILY GT 04/14/19 09:00 05/14/19 08:59 Amaury Chan MD Apr 14, 2019 08:53
[2019-04-14] MEDS: Sorbitol Solution UD 30ml GT SCH (08:58)
[2019-04-14] MEDS: Heparin 5000 units/ml inj SUBQ SCH ×2 (08:59→20:57)
--- NOTE | 2019-04-14 09:05 | NUR ---
NURSE NOTES: All due meds given. Repositioned patient. Oral care provided.
[2019-04-14] MEDS ORDERED: NS 275ml ONE ×3 (09:37→09:54)
[2019-04-14] MEDS ORDERED: Tubing IV Blood Pump IV ONE (09:53)
[2019-04-14] MEDS ORDERED: Sterile Water Irrig 1000ml IRRIG ONE (09:54)
[2019-04-14 10:20] LABS: PHOSPHORUS 3.9 MG/DL (2.5-4.9)
--- NOTE | 2019-04-14 10:22 | NUR ---
RD ASSESSMENT & RECOMMENDATIONS SEE CARE ACTIVITY FOR COMPLETE ASSESSMENT DAILY ESTIMATED NEEDS: Needs based on Pulmonary, wounds, bedbound/ 61kg adj 25-30 kcals/kg 1044-2890 total kcals 1.25-2 g protein/kg 76-122 g total protein 25-30 mL/kg 3575-7443 total fluid mLs NUTRITION DIAGNOSIS: * Increased kcal/prot needs R/T wound healing as evidenced by BL buttocks and sacral wound photos, refer to WC eval-> wounds resolving, sacrum healed. * Swallowing difficulty R/T respiratory status as evidenced by pt on T-collar, s/p G-J conversion ENTERAL NUTRITION RECOMMENDATIONS: VITAL AF 1.2 @ 60ml/hr x 24 hrs to provide 1440ml, 1728kcal, 108g prot, 1167ml free water - Maintain current TF -> meets 100% est needs - HOB over 30 degrees - increase water flushes (BUN trend up) ADDITIONAL RECOMMENDATIONS: 1) RE-calibrate bedscale wt: fluctuating daily wts (120-130lbs) 2) Wound healing: Cristian BID for skin integrity 3) Monitor BGs closely, need for NISS -> now w/ improved BGs 4) Monitor for continued good TF tolerance 5) BUN trending up -> rec to increase water flushes . .
--- NOTE | 2019-04-14 10:39 | Infectious Diseases Prog Note ---
Assessment/Plan Assessment/Plan A 1. Providencia & Klebsiella pneumonia treated 2. respiratory failure 3. hypertension 4. CVA 5. dementia 6. sacral decubitus ulcer 7. rectal VRE colonization 8. Anemia 9. Proteus UTI 10. Acute renal failure 11. Leukocytosis resolved P 1.Observe off antibiotic 2. Frequent suctioning 3. Remove PICC line before discharge Subjective ROS Limited/Unobtainable: Yes Constitutional: Denies: fever Respiratory: Reports: other - copious respiratory secretions Allergies: Coded Allergies: CODEINE (Verified Allergy, Unknown, HIVES, 09/15/09) Objective Vital Signs Last 24 Hour Vital Signs Date Time Temp Pulse Resp B/P (MAP) Pulse Ox O2 Delivery O2 Flow Rate FiO2 04/14/19 09:00 78 26 143/50 (81) 100 04/14/19 08:00 98.2 80 27 102/44 (63) 99 04/14/19 08:00 5.0 28 04/14/19 08:00 T-piece 5.0 T-piece 5.0 04/14/19 08:00 81 04/14/19 07:25 79 26 100 T-Piece 5.0 28 04/14/19 07:25 99 T-Piece 5.0 28 04/14/19 07:24 80 26 100 T-Piece 5.0 28 76 26 99 04/14/19 07:00 80 27 119/50 (73) 98 04/14/19 06:00 82 25 114/51 (72) 98 04/14/19 05:00 81 26 109/51 (70) 96 04/14/19 04:00 5.0 28 04/14/19 04:00 98.4 83 24 117/46 (69) 98 04/14/19 04:00 84 04/14/19 04:00 T-piece 5.0 T-piece 5.0 04/14/19 03:13 86 26 100 T-Piece 5.0 28 85 29 97 04/14/19 03:00 84 24 115/53 (73) 97 04/14/19 02:00 79 27 111/54 (73) 97 04/14/19 01:37 97 T-Piece 5.0 28 04/14/19 01:00 87 26 116/63 (80) 97 04/14/19 00:00 T-piece 5.0 T-piece 5.0 04/14/19 00:00 5.0 28 04/14/19 00:00 80 04/14/19 00:00 98.8 92 24 127/47 (73) 97 04/13/19 23:00 81 25 113/48 (69) 98 04/13/19 22:55 84 24 100 T-Piece 5.0 28 81 27 98 04/13/19 22:00 86 24 110/49 (69) 98 04/13/19 21:00 81 26 117/53 (74) 97 04/13/19 20:00 79 04/13/19 20:00 98.5 79 25 108/43 (64) 96 04/13/19 20:00 5.0 28 04/13/19 20:00 T-piece 5.0 T-piece 5.0 04/13/19 19:13 98 T-Piece 5.0 28 04/13/19 19:12 85 21 100 T-Piece 5.0 28 82 22 98 04/13/19 19:00 77 25 108/46 (66) 97 04/13/19 18:00 85 22 135/69 (91) 99 04/13/19 17:00 82 24 142/64 (90) 97 04/13/19 16:00 98.6 82 25 121/55 (77) 96 04/13/19 16:00 79 04/13/19 16:00 5.0 28 04/13/19 16:00 T-piece 5.0 T-piece 5.0 04/13/19 15:21 80 20 100 T-Piece 5.0 28 78 22 100 04/13/19 15:00 79 24 124/56 (78) 98 04/13/19 14:00 79 23 120/61 (80) 98 04/13/19 13:22 97 T-Piece 5.0 28 04/13/19 13:00 86 22 123/59 (80) 97 04/13/19 12:00 98.6 84 25 136/68 (90) 98 04/13/19 12:00 90 04/13/19 12:00 5.0 28 04/13/19 12:00 T-piece 5.0 T-piece 5.0 04/13/19 11:13 92 26 100 T-Piece 5.0 28 86 24 100 04/13/19 11:00 81 25 117/50 (72) 98 Height (Feet): 5 Height (Inches): 3.00 Weight (Pounds): 123 HEENT: mucous membranes moist Respiratory/Chest: other - on T bar, few rhonchi Cardiovascular: normal rate, other - PICC line Abdomen: soft, non tender, other - GT feeding Extremities: no edema Neurologic/Psychiatric: unresponsiveness, aphasia Laboratory Tests Test 04/14/19 02:50 Sodium Level 144 MMOL/L (136-145) Potassium Level 4.5 MMOL/L (3.5-5.1) Chloride Level 106 MMOL/L (98-107) Carbon Dioxide Level 30 MMOL/L (21-32) Anion Gap 8 mmol/L (5-15) Blood Urea Nitrogen 61 mg/dL (7-18) H Creatinine 1.0 MG/DL (0.55-1.30) Estimat Glomerular Filtration Rate mL/min (>60) Glucose Level 121 MG/DL (74-106) H Calcium Level 9.1 MG/DL (8.5-10.1) Phosphorus Level 3.9 MG/DL (2.5-4.9) Magnesium Level 2.3 MG/DL (1.8-2.4) Total Bilirubin 0.2 MG/DL (0.2-1.0) Aspartate Amino Transf (AST/SGOT) 45 U/L (15-37) H Alanine Aminotransferase (ALT/SGPT) 97 U/L (12-78) H Alkaline Phosphatase 143 U/L (46-116) H Total Protein 8.3 G/DL (6.4-8.2) H Albumin 3.1 G/DL (3.4-5.0) L Globulin 5.2 g/dL Albumin/Globulin Ratio 0.6 (1.0-2.7) L Current Medications Medications (Trade) Dose Ordered Sig/Maicol Route PRN Reason Start Time Stop Time Status Last Admin Dose Admin Acetaminophen (Tylenol) 650 mg Q6H PRN GT Mild Pain/Temp > 100.5 03/23/19 15:15 04/22/19 15:14 04/13/19 01:53 Albuterol/ Ipratropium (Albuterol/ Ipratropium) 3 ml Q4HRT HHN 04/10/19 03:00 04/15/19 02:59 04/14/19 07:24 Atropine Sulfate (Atropine Opth Adriana) 1 drop THREE TIMES A DAY SL 04/08/19 09:00 05/07/19 20:59 04/14/19 08:59 Chlorhexidine Gluconate (Cesilia-Hex 2%) 1 applic DAILY@2000 TOPIC 04/12/19 20:00 05/12/19 19:59 04/13/19 20:06 Folic Acid (Folate) 1 mg DAILY GT 04/08/19 09:00 05/08/19 08:59 04/14/19 08:58 Heparin Sodium (Porcine) (Heparin 5000 units/ml) 5,000 units EVERY 12 HOURS SUBQ 04/01/19 10:00 05/01/19 09:59 04/14/19 08:59 Hydralazine HCl (Apresoline) 25 mg Q6H PRN ORAL SBP above 150 04/06/19 02:45 05/06/19 02:44 04/06/19 11:15 Lansoprazole (Prevacid) 30 mg Q12HR GT 03/29/19 09:00 04/24/19 20:59 04/14/19 08:57 Levetiracetam (Keppra) 750 mg Q12HR GT 04/07/19 21:00 05/07/19 20:59 04/14/19 08:58 Ondansetron HCl (Zofran) 4 mg Q4H PRN IVP Nausea & Vomiting 03/18/19 18:15 04/17/19 18:14 03/21/19 08:27 Sorbitol (Sorbitol) 30 ml BIDPRN PRN ORAL Constipation 04/13/19 11:15 05/13/19 11:14 Sorbitol (Sorbitol) 30 ml DAILY GT 04/14/19 09:00 05/14/19 08:59 04/14/19 08:58 Chauncey Liriano MD Apr 14, 2019 10:39
--- NOTE | 2019-04-14 10:43 | NUR ---
NURSE NOTES: Seen Dr. Jm Liriano and assessed patient.
--- NOTE | 2019-04-14 11:59 | Nephrology Progress Note ---
Assessment/Plan Problem List: (1) Acute renal failure (ARF) Assessment: Cr stable (2) Chronic respiratory failure (3) Anemia (4) Sepsis Assessment Acute renal failure Respiratory failure - Trach Low Mag- Low k , Low Na Anemia UTI / Sepsis Proteinuria / HypoAlbuminemia high Trigs Sz decubs bed bound DNR Plan Transfused previously now has JT bolus Albumin as needed K and Mag and Phos supplement as needed Hydrate as needed Urine studies avoid Nephrotoxics mag K Phos supplements as needed monitor renal parameters Subjective ROS Limited/Unobtainable: Yes Objective Objective Last 24 Hour Vital Signs Date Time Temp Pulse Resp B/P (MAP) Pulse Ox O2 Delivery O2 Flow Rate FiO2 04/14/19 11:28 84 22 99 T-Piece 5.0 28 78 24 99 04/14/19 11:00 86 26 112/57 (75) 98 04/14/19 10:00 88 26 121/56 (77) 97 04/14/19 09:00 78 26 143/50 (81) 100 04/14/19 08:00 98.2 80 27 102/44 (63) 99 04/14/19 08:00 5.0 28 04/14/19 08:00 T-piece 5.0 T-piece 5.0 04/14/19 08:00 81 04/14/19 07:25 79 26 100 T-Piece 5.0 28 04/14/19 07:25 99 T-Piece 5.0 28 04/14/19 07:24 80 26 100 T-Piece 5.0 28 76 26 99 04/14/19 07:00 80 27 119/50 (73) 98 04/14/19 06:00 82 25 114/51 (72) 98 04/14/19 05:00 81 26 109/51 (70) 96 04/14/19 04:00 5.0 28 04/14/19 04:00 98.4 83 24 117/46 (69) 98 04/14/19 04:00 84 04/14/19 04:00 T-piece 5.0 T-piece 5.0 04/14/19 03:13 86 26 100 T-Piece 5.0 28 85 29 97 04/14/19 03:00 84 24 115/53 (73) 97 04/14/19 02:00 79 27 111/54 (73) 97 04/14/19 01:37 97 T-Piece 5.0 28 04/14/19 01:00 87 26 116/63 (80) 97 04/14/19 00:00 T-piece 5.0 T-piece 5.0 04/14/19 00:00 5.0 28 04/14/19 00:00 80 04/14/19 00:00 98.8 92 24 127/47 (73) 97 04/13/19 23:00 81 25 113/48 (69) 98 04/13/19 22:55 84 24 100 T-Piece 5.0 28 81 27 98 04/13/19 22:00 86 24 110/49 (69) 98 04/13/19 21:00 81 26 117/53 (74) 97 04/13/19 20:00 79 04/13/19 20:00 98.5 79 25 108/43 (64) 96 04/13/19 20:00 5.0 28 04/13/19 20:00 T-piece 5.0 T-piece 5.0 04/13/19 19:13 98 T-Piece 5.0 28 04/13/19 19:12 85 21 100 T-Piece 5.0 28 82 22 98 04/13/19 19:00 77 25 108/46 (66) 97 04/13/19 18:00 85 22 135/69 (91) 99 04/13/19 17:00 82 24 142/64 (90) 97 04/13/19 16:00 98.6 82 25 121/55 (77) 96 04/13/19 16:00 79 04/13/19 16:00 5.0 28 04/13/19 16:00 T-piece 5.0 T-piece 5.0 04/13/19 15:21 80 20 100 T-Piece 5.0 28 78 22 100 04/13/19 15:00 79 24 124/56 (78) 98 04/13/19 14:00 79 23 120/61 (80) 98 04/13/19 13:22 97 T-Piece 5.0 28 04/13/19 13:00 86 22 123/59 (80) 97 04/13/19 12:00 98.6 84 25 136/68 (90) 98 04/13/19 12:00 90 04/13/19 12:00 5.0 28 04/13/19 12:00 T-piece 5.0 T-piece 5.0 Intake and Output 04/13/19 04/14/19 19:00 07:00 Intake Total 1380 ml 920 ml Output Total 525 ml 750 ml Balance 855 ml 170 ml Free Water 300 ml 200 ml Tube Feeding 780 ml 720 ml Other 300 ml Output Urine Total 300 ml 500 ml Other 225 ml 250 ml Laboratory Tests 04/14/19 02:50: Sodium Level 144, Potassium Level 4.5, Chloride Level 106, Carbon Dioxide Level 30, Anion Gap 8, Blood Urea Nitrogen 61H, Creatinine 1.0, Estimat Glomerular Filtration Rate , Glucose Level 121H, Calcium Level 9.1, Phosphorus Level 3.9, Magnesium Level 2.3, Total Bilirubin 0.2, Aspartate Amino Transf (AST/SGOT) 45H , Alanine Aminotransferase (ALT/SGPT) 97H, Alkaline Phosphatase 143H, Total Protein 8.3H, Albumin 3.1L, Globulin 5.2, Albumin/Globulin Ratio 0.6L Height (Feet): 5 Height (Inches): 3.00 Weight (Pounds): 123 General Appearance: no apparent distress EENT: other - Trach to O2 Cardiovascular: normal rate Respiratory/Chest: decreased breath sounds Abdomen: distended Objective no change Eric Cortez MD Apr 14, 2019 11:59
--- NOTE | 2019-04-14 12:02 | NUR ---
NURSE NOTES: Repositioned patient. Oral care provided.
--- NOTE | 2019-04-14 13:35 | Surgery Progress Note ---
Surgery Progress Note Subjective Symptoms: other Objective Last 24 Hour Vital Signs Date Time Temp Pulse Resp B/P (MAP) Pulse Ox O2 Delivery O2 Flow Rate FiO2 04/14/19 11:28 84 22 99 T-Piece 5.0 28 78 24 99 04/14/19 11:00 86 26 112/57 (75) 98 04/14/19 10:00 88 26 121/56 (77) 97 04/14/19 09:00 78 26 143/50 (81) 100 04/14/19 08:00 98.2 80 27 102/44 (63) 99 04/14/19 08:00 5.0 28 04/14/19 08:00 T-piece 5.0 T-piece 5.0 04/14/19 08:00 81 04/14/19 07:25 79 26 100 T-Piece 5.0 28 04/14/19 07:25 99 T-Piece 5.0 28 04/14/19 07:24 80 26 100 T-Piece 5.0 28 76 26 99 04/14/19 07:00 80 27 119/50 (73) 98 04/14/19 06:00 82 25 114/51 (72) 98 04/14/19 05:00 81 26 109/51 (70) 96 04/14/19 04:00 5.0 28 04/14/19 04:00 98.4 83 24 117/46 (69) 98 04/14/19 04:00 84 04/14/19 04:00 T-piece 5.0 T-piece 5.0 04/14/19 03:13 86 26 100 T-Piece 5.0 28 85 29 97 04/14/19 03:00 84 24 115/53 (73) 97 04/14/19 02:00 79 27 111/54 (73) 97 04/14/19 01:37 97 T-Piece 5.0 28 04/14/19 01:00 87 26 116/63 (80) 97 04/14/19 00:00 T-piece 5.0 T-piece 5.0 04/14/19 00:00 5.0 28 04/14/19 00:00 80 04/14/19 00:00 98.8 92 24 127/47 (73) 97 04/13/19 23:00 81 25 113/48 (69) 98 04/13/19 22:55 84 24 100 T-Piece 5.0 28 81 27 98 04/13/19 22:00 86 24 110/49 (69) 98 04/13/19 21:00 81 26 117/53 (74) 97 04/13/19 20:00 79 04/13/19 20:00 98.5 79 25 108/43 (64) 96 04/13/19 20:00 5.0 28 04/13/19 20:00 T-piece 5.0 T-piece 5.0 04/13/19 19:13 98 T-Piece 5.0 28 04/13/19 19:12 85 21 100 T-Piece 5.0 28 82 22 98 04/13/19 19:00 77 25 108/46 (66) 97 04/13/19 18:00 85 22 135/69 (91) 99 04/13/19 17:00 82 24 142/64 (90) 97 04/13/19 16:00 98.6 82 25 121/55 (77) 96 04/13/19 16:00 79 04/13/19 16:00 5.0 28 04/13/19 16:00 T-piece 5.0 T-piece 5.0 04/13/19 15:21 80 20 100 T-Piece 5.0 28 78 22 100 04/13/19 15:00 79 24 124/56 (78) 98 04/13/19 14:00 79 23 120/61 (80) 98 I&O Intake and Output 04/13/19 04/14/19 19:00 07:00 Intake Total 1380 ml 920 ml Output Total 525 ml 750 ml Balance 855 ml 170 ml Free Water 300 ml 200 ml Tube Feeding 780 ml 720 ml Other 300 ml Output Urine Total 300 ml 500 ml Other 225 ml 250 ml Dressing: dry Wound: clean Cardiovascular: RSR Respiratory: clear Abdomen: soft, present bowel sounds, non-distended Extremities: no cyanosis Laboratory Tests Test 04/14/19 02:50 Sodium Level 144 MMOL/L (136-145) Potassium Level 4.5 MMOL/L (3.5-5.1) Chloride Level 106 MMOL/L (98-107) Carbon Dioxide Level 30 MMOL/L (21-32) Anion Gap 8 mmol/L (5-15) Blood Urea Nitrogen 61 mg/dL (7-18) H Creatinine 1.0 MG/DL (0.55-1.30) Estimat Glomerular Filtration Rate mL/min (>60) Glucose Level 121 MG/DL (74-106) H Calcium Level 9.1 MG/DL (8.5-10.1) Phosphorus Level 3.9 MG/DL (2.5-4.9) Magnesium Level 2.3 MG/DL (1.8-2.4) Total Bilirubin 0.2 MG/DL (0.2-1.0) Aspartate Amino Transf (AST/SGOT) 45 U/L (15-37) H Alanine Aminotransferase (ALT/SGPT) 97 U/L (12-78) H Alkaline Phosphatase 143 U/L (46-116) H Total Protein 8.3 G/DL (6.4-8.2) H Albumin 3.1 G/DL (3.4-5.0) L Globulin 5.2 g/dL Albumin/Globulin Ratio 0.6 (1.0-2.7) L Plan Problems: (1) Sacral decubitus ulcer Assessment & Plan: This is a 83-year-old female with multiple medical committees that is currently admitted for medical care and management and identified to have multiple wounds requiring care. On admission patient noted to have a resolved sacral decubitus ulcer. Has had prior care and is well-healed at this time. Will ensure it does not open up again. Patient has a right ischial decubitus ulcer that is resolved. Scar intact and well formed. Will monitor to ensure it does not open up again. Patient has a left ischial decubitus ulcer that can be identified to be stage IV with palpable bone that has been resolving as noted by the periwound tissue and scar but open area approximately 1 cm x 1.5 cm few millimeters deep to bone identified. Unsure if this is been to be completely healed prior and has since opened or if has been healing at this level. No foul odor no drainage was unsure local wound care until healed Bilateral heels soft without signs of injury Resolving pressure injury L ischium(L)1.8cm x (W)1cm.Scattered biofilm at base of wound. Edges flat and adherent with surrounding hyperpigmentation. No odor or exudate noted. Sacrum is pale pink with surrounding hyperpigmentation. Hyperpigmentation R ischium with small sheared area centrally.No areas of erythema or exudate noted. Both heels are soft but blanchable. Skin Assessed under collar of trach and no evidence of skin breakdown noted. All wound Tx. are effective and continued as ordered. Pt ahs an APM/Belén mattress overlay and is being repositioned per protocols and per tolerance.No new skin concerns noted. Full thickness pressure injury L Ischium with small amt biofilm (L)1.8cm x (W) 1cm. Surrounding pink hyperpigmentation. No odor or exudate noted. [place] hyperpigmentation from previous wound noted to sacrum. Pt also noted to have Cat 2 Skin Tear dorsal L hand, L 5th metatarsal extending into palm of hand. 80% skin flap in situ.Both heels are dry firm and blanchable. No other skin concerns noted. R ischial wound has resolved. [place] epithelial with surrounding hyperpigmentation. from historical wound. Full thickness pressure injury L ischium. [place] granulation at base of wound. Borders are macerated with Surrounding hyperpigmentation.Small amt non-odorous serous exudate noted.(L)0.7cm x (W)0.8cm. Skin hyperpigmentation from historical wound noted to Sacrum. Small sheared area noted to sacrococcygeal area.(L)0.4cm x (W)0.3cm.Small amt sanguineous exudate noted. Reabsorbed blister with semi-detached dry necrotic cap noted to web space of L thumb and L index fingers extending into palm of L hand. No odor or exudate noted. Skin assessed under tracheal collar and no erythema or evidence of Skin Breakdown noted. NO new skin concerns noted . Good hand hygiene provided to both hands. R hand contracted and fisted. Fingernails trimmed. Wound care provided along with Primary nurse. Wound Tx continued as ordered. New order obtained from to apply Betadine to wound L hand Daily. Tx done as ordered. L hand wrapped with kerlix weaving kerlix between fingers to separate fingers. Moisture Barrier applied to sacrum ,R ischium. Each site covered with Optifoam drsg. Both lower ext washed and moisturized. [place] Skin Barrier applied to both heels.Each heel covered with Optifoam drsgs. Pt positioned with pillows and both heels off-loaded with pillow. Pt wounds are resolving. Loose necrotic cap within web space of L index finger and L thumb easily removed with gentle friction. Base of wound is hypergranular with 10% necrosis. Borders are macerated. Application of Silver Nitrate to hypergranular base done. [place] Skin Barrier applied to borders . Good hand hygiene provided. Wound covered with Abd pad. L hand wrapped with Kerlix weaving Kerlix between digitsof L hand. Pressure injury L ischium resolving. Base iof wound is pale pink and dry with surrounding hyperpigmentation and scar from previous wound. Hyperpigmentation with historical scars noted to Sacrum and R ischium. Both heels are soft and blanchable. Skin Assessed under trach collar and no evidence of skin breakdown noted. Tx.Plan: Apply Betadine to wound L hand. Cover with Gauze and wrap with Kerlix Daily and prn. Cleanse L ischial wound with Saline. Apply Therahoney. Apply Moisture Barrier periwound. Cover with Optifoam drsgevery 3 days and prn. Apply Moisture Barrier Paste to R ischium and Sacrum. Cover each area with Optifoam drsg. Change every 3 days and prn. Apply [place] Skin Barrier to both heels. Cover each heel with Optifoam drsg. Change every 7 days and prn. Cleanse Blister Dorsal and palm of L hand with saline. Versatel One Silicone Contact Layer(Applied). Apply Silvasorb Gel. Wrap with Kerlix Gauze.Change every 7 days and prn. Apply Moisture Barrier to sacrum. Cover with Optifoam drsg. Change every 3 days and prn. APM/BELÉN Mattress overlay. Reposition at least every 2hours or as tolerated. Off-load heels with pillow. Nutritional optimization We will monitor follow with recommendations cont with above upon d/c wounds healing overall improving (2) Sepsis Assessment & Plan: IV abx as per ID trend labs improving wounds unlikely etiology likely respiratory imaging noted and okay abnormal lft's stable PICC on Abx in ICU for desaturation CXR with consolidation cont with frequent suctioning d/c planning g j via GI daughter wants close attention to wounds and management to ensure healing Evidence of left lower lobe pneumonia, also previously demonstrated Gastrostomy in good position Mild diastasis of the rectus abdominis musculature again demonstrated Retrosacral decubitus changes, better depicted on prior exam which included the pelvis Small hiatal hernia with evidence of trace gastroesophageal reflux Discussed with GI. Recommend GJ family still pending decision transfuse prbc prn monitor h/h monitor bm LFTs improving trending down (3) Feeding by G-tube Assessment & Plan: DAILY ESTIMATED NEEDS: Needs based on Pulmonary, wounds, bedbound/ 61kg adj 25-30 kcals/kg 1515-1317 total kcals 1.25-2 g protein/kg 76-122 g total protein 25-30 mL/kg 5222-3784 total fluid mLs NUTRITION DIAGNOSIS: * Increased kcal/prot needs R/T wound healing as evidenced by BL buttocks and sacral wound photos, refer to eval. * Swallowing difficulty R/T respiratory status as evidenced by pt on T-collar, s/p G-J conversion CURRENT TF:Glucerna 1.5 @ 50ml/hr x 24 hrs ENTERAL NUTRITION RECOMMENDATIONS: Glucerna 1.5 @ 50ml/hr x 24 hrs to provide 1200ml, 1800 kcal, 99g pro, 911ml free H2O - Maintain at current rate as tolerated to meet 100% est needs - HOB over 30 degrees - INCREASE water flush of 170ml q 6 hrs ADDITIONAL RECOMMENDATIONS: 1) RE-calibrate bedscale wt: fluctuating daily wts (108#-136# last 6 days) 2) Wound healing: Add Cristian 1pkt BID w/ continued good TF tolerance. 3) Increase water flushes, monitor for signs of water deficits 4) Monitor BGs closely, need for NISS -> now w/ improved BGs 5) Monitor for continued good TF tolerance 6) Monitor K : elev K on 03/25, s/p Kdur BID, now dc'ed. (4) Chronic vegetative state Assessment & Plan: incontinence of urine and stool. can soil dressings. nurses doing great job with monitoring and changing prn (5) Leukocytosis Walter Madera Apr 14, 2019 13:35
--- NOTE | 2019-04-14 14:02 | NUR ---
NURSE NOTES: Repositioned patient.
--- NOTE | 2019-04-14 16:02 | NUR ---
NURSE NOTES: Oral and trach suction provided. Repositioned.
--- NOTE | 2019-04-14 18:05 | NUR ---
NURSE NOTES: Bed bath given. Kept dry, clean, comfortable and HOB>30.
--- NOTE | 2019-04-14 19:10 | NUR ---
HAND-OFF: Report given to JEANNINE Armstrong. Endorsed plan of care.
--- NOTE | 2019-04-14 20:00 | NUR ---
NURSE NOTES: received report from moses rn pt non verbal upper extremities contracted and lower extremities stiff trach- shiley 6 t-piece 28 o/o rr 30 suction and reposition done tolerating tube feeding no residual family at bedside no acute resp distress
[2019-04-14] MEDS: Dyna-Hex 2% Top Sol 2oz TOPIC SCH (20:07)
--- NOTE | 2019-04-14 21:55 | General Progress Note ---
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 - Elevated glucose - elevated BUN/Cr - poor Prognosis Recommendations - daily sorbitol, and PRN sorbitol - fleets enema x 1 - Follow BUN/Cr - Cristian BID - antibiotic ointment to GJT site PRN - aspiration precautions - elevate HOB - Vital AF 1.2 - check q 6 hour FS - transfuse to keep Hg > 7 - J tube feeds - G tube drain Subjective Allergies: Coded Allergies: CODEINE (Verified Allergy, Unknown, HIVES, 09/15/09) Subjective above noted tolerating TF via J port d/w RN (-) BM yet, despite sorbitol Objective Last 24 Hour Vital Signs Date Time Temp Pulse Resp B/P (MAP) Pulse Ox O2 Delivery O2 Flow Rate FiO2 04/14/19 20:00 98.6 94 31 111/45 (67) 95 04/14/19 20:00 5.0 28 04/14/19 20:00 86 04/14/19 20:00 T-piece 5.0 T-piece 5.0 04/14/19 19:07 98 T-Piece 5.0 28 04/14/19 19:07 89 24 100 T-Piece 5.0 28 89 28 98 04/14/19 19:00 89 30 121/48 (72) 97 04/14/19 18:00 90 26 125/48 (73) 98 04/14/19 17:00 93 28 128/51 (76) 97 04/14/19 16:00 5.0 28 04/14/19 16:00 99.0 93 29 115/53 (73) 96 04/14/19 16:00 92 04/14/19 16:00 T-piece 5.0 T-piece 5.0 04/14/19 15:25 87 24 100 T-Piece 5.0 28 96 26 98 04/14/19 15:00 97 24 138/47 (77) 96 04/14/19 14:00 90 25 118/57 (77) 98 04/14/19 13:00 98 T-Piece 5.0 28 04/14/19 13:00 91 29 127/54 (78) 95 04/14/19 12:00 5.0 28 04/14/19 12:00 99.0 90 27 112/55 (74) 97 04/14/19 12:00 T-piece 5.0 T-piece 5.0 04/14/19 12:00 87 04/14/19 11:28 84 22 99 T-Piece 5.0 28 78 24 99 04/14/19 11:00 86 26 112/57 (75) 98 04/14/19 10:00 88 26 121/56 (77) 97 04/14/19 09:00 78 26 143/50 (81) 100 04/14/19 08:00 98.2 80 27 102/44 (63) 99 04/14/19 08:00 5.0 28 04/14/19 08:00 T-piece 5.0 T-piece 5.0 04/14/19 08:00 81 04/14/19 07:25 79 26 100 T-Piece 5.0 28 04/14/19 07:25 99 T-Piece 5.0 28 04/14/19 07:24 80 26 100 T-Piece 5.0 28 76 26 99 04/14/19 07:00 80 27 119/50 (73) 98 04/14/19 06:00 82 25 114/51 (72) 98 04/14/19 05:00 81 26 109/51 (70) 96 04/14/19 04:00 5.0 28 04/14/19 04:00 98.4 83 24 117/46 (69) 98 04/14/19 04:00 84 04/14/19 04:00 T-piece 5.0 T-piece 5.0 04/14/19 03:13 86 26 100 T-Piece 5.0 28 85 29 97 04/14/19 03:00 84 24 115/53 (73) 97 04/14/19 02:00 79 27 111/54 (73) 97 04/14/19 01:37 97 T-Piece 5.0 28 04/14/19 01:00 87 26 116/63 (80) 97 04/14/19 00:00 T-piece 5.0 T-piece 5.0 04/14/19 00:00 5.0 28 04/14/19 00:00 80 04/14/19 00:00 98.8 92 24 127/47 (73) 97 04/13/19 23:00 81 25 113/48 (69) 98 04/13/19 22:55 84 24 100 T-Piece 5.0 28 81 27 98 04/13/19 22:00 86 24 110/49 (69) 98 Intake and Output 04/13/19 04/14/19 19:00 07:00 Intake Total 1380 ml 920 ml Output Total 525 ml 750 ml Balance 855 ml 170 ml Free Water 300 ml 200 ml Tube Feeding 780 ml 720 ml Other 300 ml Output Urine Total 300 ml 500 ml Other 225 ml 250 ml Laboratory Tests 04/14/19 02:50: Sodium Level 144, Potassium Level 4.5, Chloride Level 106, Carbon Dioxide Level 30, Anion Gap 8, Blood Urea Nitrogen 61H, Creatinine 1.0, Estimat Glomerular Filtration Rate , Glucose Level 121H, Calcium Level 9.1, Phosphorus Level 3.9, Magnesium Level 2.3, Total Bilirubin 0.2, Aspartate Amino Transf (AST/SGOT) 45H , Alanine Aminotransferase (ALT/SGPT) 97H, Alkaline Phosphatase 143H, Total Protein 8.3H, Albumin 3.1L, Globulin 5.2, Albumin/Globulin Ratio 0.6L Height (Feet): 5 Height (Inches): 3.00 Weight (Pounds): 123 Objective Debilitated AA woman non-verbal, obtunded NCAT (+) trach coarse BS RR obese abd, (+) GJT no edema (+) contractured extremities Celio Vaughan MD Apr 14, 2019 21:55
[2019-04-14] MEDS ORDERED: Fleet's Enema 133ml RECTAL SCH (22:00)
--- NOTE | 2019-04-14 22:00 | NUR ---
NURSE NOTES: dr gonsalez call in for order fleet enema given as order
[2019-04-15] VITALS (24 sets, daily range): BP systolic 102–160; BP diastolic 26–98
--- NOTE | 2019-04-15 | NUR ---
NURSE NOTES: reposition and suction
--- NOTE | 2019-04-15 02:00 | NUR ---
NURSE NOTES: dr jane order 0.45 ns 500 cc 100/hr given
--- NOTE | 2019-04-15 04:00 | NUR ---
NURSE NOTES: had soft bm complete bed bath done central line change and wound care done
--- NOTE | 2019-04-15 06:00 | NUR ---
NURSE NOTES: DR HER IN AND SEEN PT
--- NOTE | 2019-04-15 07:07 | General Progress Note ---
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 - Elevated glucose - elevated BUN/Cr - poor Prognosis Recommendations - daily sorbitol, and PRN sorbitol - Follow BUN/Cr - Cristian BID - antibiotic ointment to GJT site PRN - aspiration precautions - elevate HOB - Vital AF 1.2 - check q 6 hour FS - transfuse to keep Hg > 7 - J tube feeds - G tube drain Subjective Allergies: Coded Allergies: CODEINE (Verified Allergy, Unknown, HIVES, 09/15/09) Subjective above noted tolerating TF via J port d/w RN (+) BM Objective Last 24 Hour Vital Signs Date Time Temp Pulse Resp B/P (MAP) Pulse Ox O2 Delivery O2 Flow Rate FiO2 04/15/19 06:00 86 26 127/38 (67) 98 04/15/19 05:00 79 23 141/66 (91) 98 04/15/19 04:00 T-piece 5.0 T-piece 5.0 04/15/19 04:00 98.8 160/98 (118) 97 04/15/19 04:00 77 04/15/19 04:00 5.0 28 04/15/19 03:00 88 25 125/41 (69) 98 04/15/19 02:00 90 30 108/49 (68) 97 04/15/19 01:02 99 T-Piece 5.0 28 04/15/19 01:00 98.4 92 31 113/47 (69) 96 04/15/19 01:00 92 28 132/49 (76) 96 04/15/19 00:00 92 28 132/49 (76) 96 04/15/19 00:00 5.0 28 04/15/19 00:00 91 04/15/19 00:00 T-piece 5.0 T-piece 5.0 04/14/19 23:06 91 24 100 T-Piece 5.0 28 90 28 98 04/14/19 22:00 T-piece 5.0 T-piece 5.0 04/14/19 22:00 88 29 102/46 (64) 96 04/14/19 21:00 92 29 120/41 (67) 96 04/14/19 20:00 98.6 94 31 111/45 (67) 95 04/14/19 20:00 5.0 28 04/14/19 20:00 86 04/14/19 20:00 T-piece 5.0 T-piece 5.0 04/14/19 19:07 98 T-Piece 5.0 28 04/14/19 19:07 89 24 100 T-Piece 5.0 28 89 28 98 04/14/19 19:00 89 30 121/48 (72) 97 04/14/19 18:00 90 26 125/48 (73) 98 04/14/19 17:00 93 28 128/51 (76) 97 04/14/19 16:00 5.0 28 04/14/19 16:00 99.0 93 29 115/53 (73) 96 04/14/19 16:00 92 04/14/19 16:00 T-piece 5.0 T-piece 5.0 04/14/19 15:25 87 24 100 T-Piece 5.0 28 96 26 98 04/14/19 15:00 97 24 138/47 (77) 96 04/14/19 14:00 90 25 118/57 (77) 98 04/14/19 13:00 98 T-Piece 5.0 28 04/14/19 13:00 91 29 127/54 (78) 95 04/14/19 12:00 5.0 28 04/14/19 12:00 99.0 90 27 112/55 (74) 97 04/14/19 12:00 T-piece 5.0 T-piece 5.0 04/14/19 12:00 87 04/14/19 11:28 84 22 99 T-Piece 5.0 28 78 24 99 04/14/19 11:00 86 26 112/57 (75) 98 04/14/19 10:00 88 26 121/56 (77) 97 04/14/19 09:00 78 26 143/50 (81) 100 04/14/19 08:00 98.2 80 27 102/44 (63) 99 04/14/19 08:00 5.0 28 04/14/19 08:00 T-piece 5.0 T-piece 5.0 04/14/19 08:00 81 04/14/19 07:25 79 26 100 T-Piece 5.0 28 04/14/19 07:25 99 T-Piece 5.0 28 04/14/19 07:24 80 26 100 T-Piece 5.0 28 76 26 99 Intake and Output 04/14/19 04/15/19 19:00 07:00 Intake Total 1270 ml 1800 ml Output Total 850 ml 900 ml Balance 420 ml 900 ml Free Water 275 ml 400 ml IV Total 500 ml Tube Feeding 720 ml 600 ml Other 275 ml 300 ml Output Urine Total 500 ml 650 ml Gastric Drainage Total 350 ml 250 ml # Bowel Movements 1 Height (Feet): 5 Height (Inches): 3.00 Weight (Pounds): 130 Objective Debilitated AA woman non-verbal, obtunded NCAT (+) trach coarse BS RR obese abd, (+) GJT no edema (+) contractured extremities Celio Vaughan MD Apr 15, 2019 07:07
[2019-04-15] MEDS: Albuterol/Ipratropium 3ml neb HHN SCH ×5 (07:29→23:01)
--- NOTE | 2019-04-15 07:31 | NUR ---
HAND-OFF: Report given to cheryl mann using sbar.
--- NOTE | 2019-04-15 07:35 | NUR ---
HAND-OFF: Report given to JUAN PAEZ USING SBAR.
--- NOTE | 2019-04-15 07:47 | General Progress Note ---
Assessment/Plan Problem List: (1) Seizure ICD Codes: R56.9 - Unspecified convulsions SNOMED: 41691882 (2) Anemia ICD Codes: D64.9 - Anemia, unspecified SNOMED: 934975485 Qualifiers: Qualified Codes: D64.9 - Anemia, unspecified (3) Sepsis ICD Codes: A41.9 - Sepsis, unspecified organism SNOMED: 78098205, 889217399 Qualifiers: Qualified Codes: A41.9 - Sepsis, unspecified organism (4) Respiratory failure with hypoxia ICD Codes: J96.91 - Respiratory failure, unspecified with hypoxia SNOMED: 94987002063097266 Qualifiers: Qualified Codes: J96.21 - Acute and chronic respiratory failure with hypoxia (5) HCAP (healthcare-associated pneumonia) ICD Codes: J18.9 - Pneumonia, unspecified organism SNOMED: 676258497, 627193040 (6) Sacral decubitus ulcer ICD Codes: L89.159 - Pressure ulcer of sacral region, unspecified stage SNOMED: 966470170 (7) HTN (hypertension) ICD Codes: I10 - Essential (primary) hypertension SNOMED: 69225623 (8) Chronic vegetative state ICD Codes: R40.3 - Persistent vegetative state SNOMED: 12203536 (9) Chronic respiratory failure ICD Codes: J96.10 - Chronic respiratory failure, unspecified whether with hypoxia or hypercapnia SNOMED: 76913502 (10) Limited mobility ICD Codes: Z74.09 - Other reduced mobility SNOMED: 6923679 Status: stable, progressing Assessment/Plan: vent as needed resp rx suctioning j tube feeds g port to gravity skin care sz rx monitor lfts bowel regime dc planning Subjective ROS Limited/Unobtainable: Yes Constitutional: Reports: malaise, weakness HEENT: Reports: no symptoms Cardiovascular: Reports: no symptoms Respiratory: Reports: cough, shortness of breath, sputum Gastrointestinal/Abdominal: Reports: difficulty swallowing Genitourinary: Reports: no symptoms Neurologic/Psychiatric: Reports: pre-existing deficit, seizure Endocrine: Reports: no symptoms Hematologic/Lymphatic: Reports: anemia Allergies: Coded Allergies: CODEINE (Verified Allergy, Unknown, HIVES, 09/15/09) All Systems: reviewed and negative except above Subjective no events. no reports of bleeding. tolerating feeds, no vomiting. minimal secretions. no szs Objective Last 24 Hour Vital Signs Date Time Temp Pulse Resp B/P (MAP) Pulse Ox O2 Delivery O2 Flow Rate FiO2 04/15/19 07:29 89 24 100 T-Piece 5.0 28 89 28 98 04/15/19 07:29 98 T-Piece 5.0 28 04/15/19 07:00 84 23 106/46 (66) 97 04/15/19 06:00 86 26 127/38 (67) 98 04/15/19 05:00 79 23 141/66 (91) 98 04/15/19 04:00 T-piece 5.0 T-piece 5.0 04/15/19 04:00 98.8 160/98 (118) 97 04/15/19 04:00 77 04/15/19 04:00 5.0 28 04/15/19 03:00 88 25 125/41 (69) 98 04/15/19 02:00 90 30 108/49 (68) 97 04/15/19 01:02 99 T-Piece 5.0 28 04/15/19 01:00 98.4 92 31 113/47 (69) 96 04/15/19 01:00 92 28 132/49 (76) 96 04/15/19 00:00 92 28 132/49 (76) 96 04/15/19 00:00 5.0 28 04/15/19 00:00 91 04/15/19 00:00 T-piece 5.0 T-piece 5.0 04/14/19 23:06 91 24 100 T-Piece 5.0 28 90 28 98 04/14/19 22:00 T-piece 5.0 T-piece 5.0 04/14/19 22:00 88 29 102/46 (64) 96 04/14/19 21:00 92 29 120/41 (67) 96 04/14/19 20:00 98.6 94 31 111/45 (67) 95 04/14/19 20:00 5.0 28 04/14/19 20:00 86 04/14/19 20:00 T-piece 5.0 T-piece 5.0 04/14/19 19:07 98 T-Piece 5.0 28 04/14/19 19:07 89 24 100 T-Piece 5.0 28 89 28 98 04/14/19 19:00 89 30 121/48 (72) 97 04/14/19 18:00 90 26 125/48 (73) 98 04/14/19 17:00 93 28 128/51 (76) 97 04/14/19 16:00 5.0 28 04/14/19 16:00 99.0 93 29 115/53 (73) 96 04/14/19 16:00 92 04/14/19 16:00 T-piece 5.0 T-piece 5.0 04/14/19 15:25 87 24 100 T-Piece 5.0 28 96 26 98 04/14/19 15:00 97 24 138/47 (77) 96 04/14/19 14:00 90 25 118/57 (77) 98 04/14/19 13:00 98 T-Piece 5.0 28 04/14/19 13:00 91 29 127/54 (78) 95 04/14/19 12:00 5.0 28 04/14/19 12:00 99.0 90 27 112/55 (74) 97 04/14/19 12:00 T-piece 5.0 T-piece 5.0 04/14/19 12:00 87 04/14/19 11:28 84 22 99 T-Piece 5.0 28 78 24 99 04/14/19 11:00 86 26 112/57 (75) 98 04/14/19 10:00 88 26 121/56 (77) 97 04/14/19 09:00 78 26 143/50 (81) 100 04/14/19 08:00 98.2 80 27 102/44 (63) 99 04/14/19 08:00 5.0 28 04/14/19 08:00 T-piece 5.0 T-piece 5.0 04/14/19 08:00 81 Intake and Output 04/14/19 04/15/19 19:00 07:00 Intake Total 1270 ml 1860 ml Output Total 850 ml 1000 ml Balance 420 ml 860 ml Free Water 275 ml 400 ml IV Total 500 ml Tube Feeding 720 ml 660 ml Other 275 ml 300 ml Output Urine Total 500 ml 750 ml Gastric Drainage Total 350 ml 250 ml # Bowel Movements 1 Height (Feet): 5 Height (Inches): 3.00 Weight (Pounds): 130 Objective General Appearance: WD/WN, confused. on trach collar Neck: supple Cardiovascular: normal rate, regular rhythm Respiratory/Chest: chest wall non-tender, rhonchi - bilaterally(minimal) Abdomen: normal bowel sounds, non tender, soft, no organomegaly Edema: no edema noted Arm (L), no edema noted Arm (R), no edema noted Leg (L), no edema noted Leg (R), no edema noted Pedal (L), no edema noted Pedal (R), no edema noted Generalized Neurologic: disoriented, unresponsive, aphasia Irvin Beltrán MD Apr 15, 2019 07:47
[2019-04-15] MEDS: Sorbitol Solution UD 30ml GT SCH (09:45)
--- NOTE | 2019-04-15 09:45 | NUR ---
NURSE NOTES: Morning medication given through G-tube and placed for an hour, flushed with 100ml of water and clamped, oral care provided with thick boles secretion coming from Trach. heels remains elevated with pillow and sacral region remains covered with Optifoam.
[2019-04-15] MEDS: Heparin 5000 units/ml inj SUBQ SCH ×2 (09:48→20:27)
--- NOTE | 2019-04-15 10:45 | Progress Note ---
DATE: 04/14/2019 CARDIOLOGY PROGRESS NOTE SUBJECTIVE: The patient remains on ventilator support. Blood pressure parameters remained stable. Heart rate controlled, in sinus rhythm. OBJECTIVE: Exam unchanged. LABORATORY DATA: Labs are notable for improvement in liver function studies and prerenal azotemia. IMPRESSION: 1. Recurring transaminitis, now recovering again. 2. Persisting prerenal azotemia. 3. Chronic diastolic congestive heart failure. 4. Chronic respiratory failure. 5. Seizure disorder. PLAN: Same cardiovascular regimen. Favor additional hydration. Bg Hagen M.D. DR: Deb JOB#: [id number] CC:
--- NOTE | 2019-04-15 11:04 | Infectious Diseases Prog Note ---
"Assessment/Plan Assessment/Plan antibiotics : none A 1. klebsiella | providencia pneumonia s/p rx 2. respiratory failure 3. hypertension 4. CVA 5. dementia 6. sacral decubitus ulcer 7. rectal VRE colonization P 1. observe off antibiotics 2. dc planned Subjective ROS Limited/Unobtainable: Yes Allergies: Coded Allergies: CODEINE (Verified Allergy, Unknown, HIVES, 09/15/09) Objective Vital Signs Last 24 Hour Vital Signs Date Time Temp Pulse Resp B/P (MAP) Pulse Ox O2 Delivery O2 Flow Rate FiO2 04/15/19 10:00 85 23 145/36 (72) 99 04/15/19 09:00 82 23 122/38 (66) 98 04/15/19 08:00 5.0 28 04/15/19 08:00 99.0 83 23 134/40 (71) 98 04/15/19 07:29 89 24 100 T-Piece 5.0 28 89 28 98 04/15/19 07:29 98 T-Piece 5.0 28 04/15/19 07:00 84 23 106/46 (66) 97 04/15/19 06:00 86 26 127/38 (67) 98 04/15/19 05:00 79 23 141/66 (91) 98 04/15/19 04:00 T-piece 5.0 T-piece 5.0 04/15/19 04:00 98.8 160/98 (118) 97 04/15/19 04:00 77 04/15/19 04:00 5.0 28 04/15/19 03:00 88 25 125/41 (69) 98 04/15/19 02:00 90 30 108/49 (68) 97 04/15/19 01:02 99 T-Piece 5.0 28 04/15/19 01:00 98.4 92 31 113/47 (69) 96 04/15/19 01:00 92 28 132/49 (76) 96 04/15/19 00:00 92 28 132/49 (76) 96 04/15/19 00:00 5.0 28 04/15/19 00:00 91 04/15/19 00:00 T-piece 5.0 T-piece 5.0 04/14/19 23:06 91 24 100 T-Piece 5.0 28 90 28 98 04/14/19 22:00 T-piece 5.0 T-piece 5.0 04/14/19 22:00 88 29 102/46 (64) 96 04/14/19 21:00 92 29 120/41 (67) 96 04/14/19 20:00 98.6 94 31 111/45 (67) 95 04/14/19 20:00 5.0 28 04/14/19 20:00 86 04/14/19 20:00 T-piece 5.0 T-piece 5.0 04/14/19 19:07 98 T-Piece 5.0 28 04/14/19 19:07 89 24 100 T-Piece 5.0 28 89 28 98 04/14/19 19:00 89 30 121/48 (72) 97 04/14/19 18:00 90 26 125/48 (73) 98 04/14/19 17:00 93 28 128/51 (76) 97 04/14/19 16:00 5.0 28 04/14/19 16:00 99.0 93 29 115/53 (73) 96 04/14/19 16:00 92 04/14/19 16:00 T-piece 5.0 T-piece 5.0 04/14/19 15:25 87 24 100 T-Piece 5.0 28 96 26 98 04/14/19 15:00 97 24 138/47 (77) 96 04/14/19 14:00 90 25 118/57 (77) 98 04/14/19 13:00 98 T-Piece 5.0 28 04/14/19 13:00 91 29 127/54 (78) 95 04/14/19 12:00 5.0 28 04/14/19 12:00 99.0 90 27 112/55 (74) 97 04/14/19 12:00 T-piece 5.0 T-piece 5.0 04/14/19 12:00 87 04/14/19 11:28 84 22 99 T-Piece 5.0 28 78 24 99 Height (Feet): 5 Height (Inches): 3.00 Weight (Pounds): 130 HEENT: status post trach Respiratory/Chest: lungs clear Cardiovascular: normal rate, regular rhythm, no gallop/murmur Abdomen: soft, non tender, other - GT Extremities: no edema, other - right arm PICC Current Medications Medications (Trade) Dose Ordered Sig/Maicol Route PRN Reason Start Time Stop Time Status Last Admin Dose Admin Acetaminophen (Tylenol) 650 mg Q6H PRN GT Mild Pain/Temp > 100.5 03/23/19 15:15 04/22/19 15:14 04/13/19 01:53 Albuterol/ Ipratropium (Albuterol/ Ipratropium) 3 ml Q4HRT HHN 04/15/19 07:00 04/20/19 06:59 04/15/19 07:29 Atropine Sulfate (Atropine Opth Adriana) 1 drop THREE TIMES A DAY SL 04/08/19 09:00 05/07/19 20:59 04/15/19 09:46 Chlorhexidine Gluconate (Cesilia-Hex 2%) 1 applic DAILY@1999 TOPIC 04/12/19 20:00 05/12/19 19:59 04/14/19 20:07 Folic Acid (Folate) 1 mg DAILY GT 04/08/19 09:00 05/08/19 08:59 04/15/19 09:45 Heparin Sodium (Porcine) (Heparin 5000 units/ml) 5,000 units EVERY 12 HOURS SUBQ 04/01/19 10:00 05/01/19 09:59 04/15/19 09:48 Hydralazine HCl (Apresoline) 25 mg Q6H PRN ORAL SBP above 150 04/06/19 02:45 05/06/19 02:44 04/06/19 11:15 Lansoprazole (Prevacid) 30 mg Q12HR GT 03/29/19 09:00 04/24/19 20:59 04/15/19 09:45 Levetiracetam (Keppra) 750 mg Q12HR GT 04/07/19 21:00 05/07/19 20:59 04/15/19 09:45 Ondansetron HCl (Zofran) 4 mg Q4H PRN IVP Nausea & Vomiting 03/18/19 18:15 04/17/19 18:14 03/21/19 08:27 Sorbitol (Sorbitol) 30 ml BIDPRN PRN ORAL Constipation 04/13/19 11:15 05/13/19 11:14 Sorbitol (sorbitoL) 30 ml DAILY GT 04/14/19 09:00 05/14/19 08:59 04/15/19 09:45 Geovany Yang MD Apr 15, 2019 11:04"
--- NOTE | 2019-04-15 12:30 | NUR ---
NURSE NOTES: Blood sugar resulted at 120 with tube feeding running at 60ml/hr, patient repositioned and provided oral care.
--- NOTE | 2019-04-15 12:31 | Pulmonolgy Critical Care Note ---
Critical Care - Asmt/Plan Assessment/Plan: Pulmonary CCM Progress Note Assessment/Plan Impression: history of Sepsis history of Pneumonia Trach, G tube, Hypertension, Cardiac disease, Dementia, Previous CVA, Seizure disorder, Respiratory failure with hypoxia Anemia, Sacral ulcer renal cyst chronic pulmonary congestion Plan continue to monitor off vent and monitor as is oxygen low flow aspiration precautions to continue elevate head and monitor secretions DNR. No CPR. ICU care reviewed meds noted off load all changes noted and discussed hope to transfer to [place] if family agrees medications/laboratory data/nursing notes/ICU care reviewed in detail note reviewed and edited care discussed with RN and RT Subjective Allergies: Coded Allergies: CODEINE Subjective respiratory care noted ICU care reviewed supportive care noted and reviewed RT care reviewed overnight care noted findings reviewed and discussed in detail with nursing and RT Objective Vital Signs Noted Objective WDWN NAD contracted off vent reduced breath sounds bilaterally with some rhonchi; no wheeze [id number] without MRG NABS nontender no HSM no CC minimal nonfocal nonverbal trach and gt reviewed and edited Laboratory Tests Noted Critical Care - Objective Last 24 Hour Vital Signs Date Time Temp Pulse Resp B/P (MAP) Pulse Ox O2 Delivery O2 Flow Rate FiO2 04/15/19 12:00 5.0 28 04/15/19 12:00 92 04/15/19 11:15 78 20 100 T-Piece 5.0 28 76 20 99 04/15/19 11:15 99 T-Piece 5.0 28 04/15/19 10:00 85 23 145/36 (72) 99 04/15/19 09:00 82 23 122/38 (66) 98 04/15/19 08:00 5.0 28 04/15/19 08:00 99.0 83 23 134/40 (71) 98 04/15/19 08:00 84 04/15/19 07:29 89 24 100 T-Piece 5.0 28 89 28 98 04/15/19 07:29 98 T-Piece 5.0 28 04/15/19 07:00 84 23 106/46 (66) 97 04/15/19 06:00 86 26 127/38 (67) 98 04/15/19 05:00 79 23 141/66 (91) 98 04/15/19 04:00 T-piece 5.0 T-piece 5.0 04/15/19 04:00 98.8 160/98 (118) 97 04/15/19 04:00 77 04/15/19 04:00 5.0 28 04/15/19 03:00 88 25 125/41 (69) 98 04/15/19 02:00 90 30 108/49 (68) 97 04/15/19 01:02 99 T-Piece 5.0 28 04/15/19 01:00 98.4 92 31 113/47 (69) 96 04/15/19 01:00 92 28 132/49 (76) 96 04/15/19 00:00 92 28 132/49 (76) 96 04/15/19 00:00 5.0 28 04/15/19 00:00 91 04/15/19 00:00 T-piece 5.0 T-piece 5.0 04/14/19 23:06 91 24 100 T-Piece 5.0 28 90 28 98 04/14/19 22:00 T-piece 5.0 T-piece 5.0 04/14/19 22:00 88 29 102/46 (64) 96 04/14/19 21:00 92 29 120/41 (67) 96 04/14/19 20:00 98.6 94 31 111/45 (67) 95 04/14/19 20:00 5.0 28 04/14/19 20:00 86 04/14/19 20:00 T-piece 5.0 T-piece 5.0 04/14/19 19:07 98 T-Piece 5.0 28 04/14/19 19:07 89 24 100 T-Piece 5.0 28 89 28 98 04/14/19 19:00 89 30 121/48 (72) 97 04/14/19 18:00 90 26 125/48 (73) 98 04/14/19 17:00 93 28 128/51 (76) 97 04/14/19 16:00 5.0 28 04/14/19 16:00 99.0 93 29 115/53 (73) 96 04/14/19 16:00 92 04/14/19 16:00 T-piece 5.0 T-piece 5.0 04/14/19 15:25 87 24 100 T-Piece 5.0 28 96 26 98 04/14/19 15:00 97 24 138/47 (77) 96 04/14/19 14:00 90 25 118/57 (77) 98 04/14/19 13:00 98 T-Piece 5.0 28 04/14/19 13:00 91 29 127/54 (78) 95 Accucheck: 122 Critical Care - Subjective ROS Limited/Unobtainable: No FI02: 28 Vent Support Mode: CPAP Vent Tidal Volume: 450 Sputum Amount: Small PEEP: 5.0 PIP: 19 Tube Feeding Amount: 60 I&O: Intake and Output 04/14/19 04/15/19 19:00 07:00 Intake Total 1270 ml 1860 ml Output Total 850 ml 1000 ml Balance 420 ml 860 ml Free Water 275 ml 400 ml IV Total 500 ml Tube Feeding 720 ml 660 ml Other 275 ml 300 ml Output Urine Total 500 ml 750 ml Gastric Drainage Total 350 ml 250 ml # Bowel Movements 1 ET-Tube: 6.0 Bg Moffett MD Apr 15, 2019 12:31
--- NOTE | 2019-04-15 12:56 | Nephrology Progress Note ---
Assessment/Plan Problem List: (1) Acute renal failure (ARF) Assessment: Cr stable (2) Chronic respiratory failure (3) Anemia (4) Sepsis Assessment Acute renal failure Respiratory failure - Trach Low Mag- Low k , Low Na Anemia UTI / Sepsis Proteinuria / HypoAlbuminemia high Trigs Sz decubs bed bound DNR Plan Transfused previously now has JT bolus Albumin as needed K and Mag and Phos supplement as needed Hydrate as needed Urine studies avoid Nephrotoxics mag K Phos supplements as needed monitor renal parameters Subjective ROS Limited/Unobtainable: Yes Objective Objective Last 24 Hour Vital Signs Date Time Temp Pulse Resp B/P (MAP) Pulse Ox O2 Delivery O2 Flow Rate FiO2 04/15/19 12:00 5.0 28 04/15/19 12:00 92 04/15/19 12:00 99.0 92 26 124/26 (58) 97 04/15/19 12:00 T-piece 5.0 T-piece 5.0 04/15/19 11:15 78 20 100 T-Piece 5.0 28 76 20 99 04/15/19 11:15 99 T-Piece 5.0 28 04/15/19 11:00 90 30 131/33 (65) 94 04/15/19 10:00 85 23 145/36 (72) 99 04/15/19 09:00 82 23 122/38 (66) 98 04/15/19 08:00 5.0 28 04/15/19 08:00 99.0 83 23 134/40 (71) 98 04/15/19 08:00 84 04/15/19 08:00 T-piece 5.0 T-piece 5.0 04/15/19 07:29 89 24 100 T-Piece 5.0 28 89 28 98 04/15/19 07:29 98 T-Piece 5.0 28 04/15/19 07:00 84 23 106/46 (66) 97 04/15/19 06:00 86 26 127/38 (67) 98 04/15/19 05:00 79 23 141/66 (91) 98 04/15/19 04:00 T-piece 5.0 T-piece 5.0 04/15/19 04:00 98.8 160/98 (118) 97 04/15/19 04:00 77 04/15/19 04:00 5.0 28 04/15/19 03:00 88 25 125/41 (69) 98 04/15/19 02:00 90 30 108/49 (68) 97 04/15/19 01:02 99 T-Piece 5.0 28 04/15/19 01:00 98.4 92 31 113/47 (69) 96 04/15/19 01:00 92 28 132/49 (76) 96 04/15/19 00:00 92 28 132/49 (76) 96 04/15/19 00:00 5.0 28 04/15/19 00:00 91 04/15/19 00:00 T-piece 5.0 T-piece 5.0 04/14/19 23:06 91 24 100 T-Piece 5.0 28 90 28 98 04/14/19 22:00 T-piece 5.0 T-piece 5.0 04/14/19 22:00 88 29 102/46 (64) 96 04/14/19 21:00 92 29 120/41 (67) 96 04/14/19 20:00 98.6 94 31 111/45 (67) 95 04/14/19 20:00 5.0 28 04/14/19 20:00 86 04/14/19 20:00 T-piece 5.0 T-piece 5.0 04/14/19 19:07 98 T-Piece 5.0 28 04/14/19 19:07 89 24 100 T-Piece 5.0 28 89 28 98 04/14/19 19:00 89 30 121/48 (72) 97 04/14/19 18:00 90 26 125/48 (73) 98 04/14/19 17:00 93 28 128/51 (76) 97 04/14/19 16:00 5.0 28 04/14/19 16:00 99.0 93 29 115/53 (73) 96 04/14/19 16:00 92 04/14/19 16:00 T-piece 5.0 T-piece 5.0 04/14/19 15:25 87 24 100 T-Piece 5.0 28 96 26 98 04/14/19 15:00 97 24 138/47 (77) 96 04/14/19 14:00 90 25 118/57 (77) 98 04/14/19 13:00 98 T-Piece 5.0 28 04/14/19 13:00 91 29 127/54 (78) 95 Intake and Output 04/14/19 04/15/19 19:00 07:00 Intake Total 1270 ml 1860 ml Output Total 850 ml 1000 ml Balance 420 ml 860 ml Free Water 275 ml 400 ml IV Total 500 ml Tube Feeding 720 ml 660 ml Other 275 ml 300 ml Output Urine Total 500 ml 750 ml Gastric Drainage Total 350 ml 250 ml # Bowel Movements 1 Height (Feet): 5 Height (Inches): 3.00 Weight (Pounds): 130 General Appearance: no apparent distress EENT: other - trach to O2 Cardiovascular: normal rate Respiratory/Chest: decreased breath sounds Abdomen: distended Objective no change Eric Cortez MD Apr 15, 2019 12:56
--- NOTE | 2019-04-15 14:30 | NUR ---
NURSE NOTES: Thick secretions noted to throughout mouth, tannish yellow secretions noted while suctioning through patient Trach, remains on tube feeding at 60ml/hr running through J-tube.
--- NOTE | 2019-04-15 15:41 | Surgery Progress Note ---
Surgery Progress Note Subjective Additional Comments no acute events Objective Last 24 Hour Vital Signs Date Time Temp Pulse Resp B/P (MAP) Pulse Ox O2 Delivery O2 Flow Rate FiO2 04/15/19 14:50 82 20 100 T-Piece 5.0 28 81 20 98 04/15/19 13:00 90 26 118/30 (59) 97 04/15/19 12:00 5.0 28 04/15/19 12:00 92 04/15/19 12:00 99.0 92 26 124/26 (58) 97 04/15/19 12:00 T-piece 5.0 T-piece 5.0 04/15/19 11:15 78 20 100 T-Piece 5.0 28 76 20 99 04/15/19 11:15 99 T-Piece 5.0 28 04/15/19 11:00 90 30 131/33 (65) 94 04/15/19 10:00 85 23 145/36 (72) 99 04/15/19 09:00 82 23 122/38 (66) 98 04/15/19 08:00 5.0 28 04/15/19 08:00 99.0 83 23 134/40 (71) 98 04/15/19 08:00 84 04/15/19 08:00 T-piece 5.0 T-piece 5.0 04/15/19 07:29 89 24 100 T-Piece 5.0 28 89 28 98 04/15/19 07:29 98 T-Piece 5.0 28 04/15/19 07:00 84 23 106/46 (66) 97 04/15/19 06:00 86 26 127/38 (67) 98 04/15/19 05:00 79 23 141/66 (91) 98 04/15/19 04:00 T-piece 5.0 T-piece 5.0 04/15/19 04:00 98.8 160/98 (118) 97 04/15/19 04:00 77 04/15/19 04:00 5.0 28 04/15/19 03:00 88 25 125/41 (69) 98 04/15/19 02:00 90 30 108/49 (68) 97 04/15/19 01:02 99 T-Piece 5.0 28 04/15/19 01:00 98.4 92 31 113/47 (69) 96 04/15/19 01:00 92 28 132/49 (76) 96 04/15/19 00:00 92 28 132/49 (76) 96 04/15/19 00:00 5.0 28 04/15/19 00:00 91 04/15/19 00:00 T-piece 5.0 T-piece 5.0 04/14/19 23:06 91 24 100 T-Piece 5.0 28 90 28 98 04/14/19 22:00 T-piece 5.0 T-piece 5.0 04/14/19 22:00 88 29 102/46 (64) 96 04/14/19 21:00 92 29 120/41 (67) 96 04/14/19 20:00 98.6 94 31 111/45 (67) 95 04/14/19 20:00 5.0 28 04/14/19 20:00 86 04/14/19 20:00 T-piece 5.0 T-piece 5.0 04/14/19 19:07 98 T-Piece 5.0 28 04/14/19 19:07 89 24 100 T-Piece 5.0 28 89 28 98 04/14/19 19:00 89 30 121/48 (72) 97 04/14/19 18:00 90 26 125/48 (73) 98 04/14/19 17:00 93 28 128/51 (76) 97 04/14/19 16:00 5.0 28 04/14/19 16:00 99.0 93 29 115/53 (73) 96 04/14/19 16:00 92 04/14/19 16:00 T-piece 5.0 T-piece 5.0 I&O Intake and Output 04/14/19 04/15/19 19:00 07:00 Intake Total 1270 ml 1860 ml Output Total 850 ml 1000 ml Balance 420 ml 860 ml Free Water 275 ml 400 ml IV Total 500 ml Tube Feeding 720 ml 660 ml Other 275 ml 300 ml Output Urine Total 500 ml 750 ml Gastric Drainage Total 350 ml 250 ml # Bowel Movements 1 Dressing: dry Wound: clean Cardiovascular: RSR Respiratory: clear Abdomen: soft, non-tender, present bowel sounds Extremities: no cyanosis Plan Problems: (1) Sacral decubitus ulcer Assessment & Plan: This is a 83-year-old female with multiple medical committees that is currently admitted for medical care and management and identified to have multiple wounds requiring care. On admission patient noted to have a resolved sacral decubitus ulcer. Has had prior care and is well-healed at this time. Will ensure it does not open up again. Patient has a right ischial decubitus ulcer that is resolved. Scar intact and well formed. Will monitor to ensure it does not open up again. Patient has a left ischial decubitus ulcer that can be identified to be stage IV with palpable bone that has been resolving as noted by the periwound tissue and scar but open area approximately 1 cm x 1.5 cm few millimeters deep to bone identified. Unsure if this is been to be completely healed prior and has since opened or if has been healing at this level. No foul odor no drainage was unsure local wound care until healed Bilateral heels soft without signs of injury Resolving pressure injury L ischium(L)1.8cm x (W)1cm.Scattered biofilm at base of wound. Edges flat and adherent with surrounding hyperpigmentation. No odor or exudate noted. Sacrum is pale pink with surrounding hyperpigmentation. Hyperpigmentation R ischium with small sheared area centrally.No areas of erythema or exudate noted. Both heels are soft but blanchable. Skin Assessed under collar of trach and no evidence of skin breakdown noted. All wound Tx. are effective and continued as ordered. Pt ahs an APM/Belén mattress overlay and is being repositioned per protocols and per tolerance.No new skin concerns noted. Full thickness pressure injury L Ischium with small amt biofilm (L)1.8cm x (W) 1cm. Surrounding pink hyperpigmentation. No odor or exudate noted. [place] hyperpigmentation from previous wound noted to sacrum. Pt also noted to have Cat 2 Skin Tear dorsal L hand, L 5th metatarsal extending into palm of hand. 80% skin flap in situ.Both heels are dry firm and blanchable. No other skin concerns noted. R ischial wound has resolved. [place] epithelial with surrounding hyperpigmentation. from historical wound. Full thickness pressure injury L ischium. [place] granulation at base of wound. Borders are macerated with Surrounding hyperpigmentation.Small amt non-odorous serous exudate noted.(L)0.7cm x (W)0.8cm. Skin hyperpigmentation from historical wound noted to Sacrum. Small sheared area noted to sacrococcygeal area.(L)0.4cm x (W)0.3cm.Small amt sanguineous exudate noted. Reabsorbed blister with semi-detached dry necrotic cap noted to web space of L thumb and L index fingers extending into palm of L hand. No odor or exudate noted. Skin assessed under tracheal collar and no erythema or evidence of Skin Breakdown noted. NO new skin concerns noted . Good hand hygiene provided to both hands. R hand contracted and fisted. Fingernails trimmed. Wound care provided along with Primary nurse. Wound Tx continued as ordered. New order obtained from to apply Betadine to wound L hand Daily. Tx done as ordered. L hand wrapped with kerlix weaving kerlix between fingers to separate fingers. Moisture Barrier applied to sacrum ,R ischium. Each site covered with Optifoam drsg. Both lower ext washed and moisturized. Cavilon Skin Barrier applied to both heels.Each heel covered with Optifoam drsgs. Pt positioned with pillows and both heels off-loaded with pillow. Pt wounds are resolving. Loose necrotic cap within web space of L index finger and L thumb easily removed with gentle friction. Base of wound is hypergranular with 10% necrosis. Borders are macerated. Application of Silver Nitrate to hypergranular base done. Cavilon Skin Barrier applied to borders . Good hand hygiene provided. Wound covered with Abd pad. L hand wrapped with Kerlix weaving Kerlix between digitsof L hand. Pressure injury L ischium resolving. Base iof wound is pale pink and dry with surrounding hyperpigmentation and scar from previous wound. Hyperpigmentation with historical scars noted to Sacrum and R ischium. Both heels are soft and blanchable. Skin Assessed under trach collar and no evidence of skin breakdown noted. Tx.Plan: Apply Betadine to wound L hand. Cover with Gauze and wrap with Kerlix Daily and prn. Cleanse L ischial wound with Saline. Apply Therahoney. Apply Moisture Barrier periwound. Cover with Optifoam drsgevery 3 days and prn. Apply Moisture Barrier Paste to R ischium and Sacrum. Cover each area with Optifoam drsg. Change every 3 days and prn. Apply Cavilon Skin Barrier to both heels. Cover each heel with Optifoam drsg. Change every 7 days and prn. Cleanse Blister Dorsal and palm of L hand with saline. Versatel One Silicone Contact Layer(Applied). Apply Silvasorb Gel. Wrap with Kerlix Gauze.Change every 7 days and prn. Apply Moisture Barrier to sacrum. Cover with Optifoam drsg. Change every 3 days and prn. APM/BELÉN Mattress overlay. Reposition at least every 2hours or as tolerated. Off-load heels with pillow. Nutritional optimization We will monitor follow with recommendations cont with above upon d/c wounds healing overall improving (2) Sepsis Assessment & Plan: IV abx as per ID trend labs improving wounds unlikely etiology likely respiratory imaging noted and okay abnormal lft's stable PICC on Abx in ICU for desaturation CXR with consolidation cont with frequent suctioning d/c planning g j via GI daughter wants close attention to wounds and management to ensure healing Evidence of left lower lobe pneumonia, also previously demonstrated Gastrostomy in good position Mild diastasis of the rectus abdominis musculature again demonstrated Retrosacral decubitus changes, better depicted on prior exam which included the pelvis Small hiatal hernia with evidence of trace gastroesophageal reflux Discussed with GI. Recommend GJ family still pending decision transfuse prbc prn monitor h/h monitor bm LFTs improving trending down (3) Feeding by G-tube Assessment & Plan: DAILY ESTIMATED NEEDS: Needs based on Pulmonary, wounds, bedbound/ 61kg adj 25-30 kcals/kg 4375-3591 total kcals 1.25-2 g protein/kg 76-122 g total protein 25-30 mL/kg 6971-9238 total fluid mLs NUTRITION DIAGNOSIS: * Increased kcal/prot needs R/T wound healing as evidenced by BL buttocks and sacral wound photos, refer to WC eval. * Swallowing difficulty R/T respiratory status as evidenced by pt on T-collar, s/p G-J conversion CURRENT TF:Glucerna 1.5 @ 50ml/hr x 24 hrs ENTERAL NUTRITION RECOMMENDATIONS: Glucerna 1.5 @ 50ml/hr x 24 hrs to provide 1200ml, 1800 kcal, 99g pro, 911ml free H2O - Maintain at current rate as tolerated to meet 100% est needs - HOB over 30 degrees - INCREASE water flush of 170ml q 6 hrs ADDITIONAL RECOMMENDATIONS: 1) RE-calibrate bedscale wt: fluctuating daily wts (108#-136# last 6 days) 2) Wound healing: Add Cristian 1pkt BID w/ continued good TF tolerance. 3) Increase water flushes, monitor for signs of water deficits 4) Monitor BGs closely, need for NISS -> now w/ improved BGs 5) Monitor for continued good TF tolerance 6) Monitor K : elev K on 03/25, s/p Kdur BID, now dc'ed. (4) Chronic vegetative state Assessment & Plan: incontinence of urine and stool. can soil dressings. nurses doing great job with monitoring and changing prn (5) Leukocytosis Walter Madera Apr 15, 2019 15:40
--- NOTE | 2019-04-15 16:09 | NUR ---
NURSE NOTES: Large Bowel movement noted with soft consistency, remains tolerating tube feeding at 60ml/hr,
--- NOTE | 2019-04-15 19:06 | NUR ---
HAND-OFF: Report given to JEANNINE Armstrong.
--- NOTE | 2019-04-15 19:37 | NUR ---
NURSE NOTES: received report from jeremiah rn pt non verbal [id number] 0/0 o2 sat 98 0/0 reposition and suction tolerating tube feeding no residual
[2019-04-15] MEDS: Dyna-Hex 2% Top Sol 2oz TOPIC SCH (20:23)
--- NOTE | 2019-04-15 22:00 | NUR ---
NURSE NOTES: medicated with tylenol 650mg for lt hand pain via gt with relief reposition and suction
[2019-04-15] MEDS: Acetaminophen 650mg/20.3ml GT PRN (22:23)
[2019-04-16] VITALS (24 sets, daily range): BP systolic 107–147; BP diastolic 33–97
--- NOTE | 2019-04-16 01:06 | NUR ---
NURSE NOTES: reposition and suction no acute distress noted
--- NOTE | 2019-04-16 02:00 | NUR ---
NURSE NOTES: reposition and suction no acute distress note
[2019-04-16] MEDS: Albuterol/Ipratropium 3ml neb HHN SCH ×6 (02:48→23:54)
--- NOTE | 2019-04-16 03:15 | Progress Note ---
DATE: 04/15/2019 CARDIOLOGY PROGRESS NOTE SUBJECTIVE: The patient remains on T-tube. No overall change in condition. OBJECTIVE: VITAL SIGNS: Blood pressure 106/46, heart rate 84, respiratory rate 23. LUNGS: Bilateral breath sounds. Thin secretions. CARDIAC: Regular rhythm and rate. Normal S1, S2. ABDOMEN: Soft. EXTREMITIES: No edema. IMPRESSION: 1. Respiratory failure. 2. Chronic diastolic congestive heart failure. 3. Transaminitis. 4. Recovered sepsis with shock. PLAN: 1. Plan of care reviewed and updated. 2. Continue current cardiovascular therapy. 3. Recheck laboratory studies. Bg Hagen M.D. DR: Deb JOB#: [id number] CC:
--- NOTE | 2019-04-16 04:00 | NUR ---
NURSE NOTES: complete bed bath oral care and wound care done
--- NOTE | 2019-04-16 06:00 | NUR ---
NURSE NOTES: reposition and suction bs 115 no coverage
--- NOTE | 2019-04-16 07:08 | NUR ---
HAND-OFF: Report given to guanako mann using sbar.
--- NOTE | 2019-04-16 07:09 | NUR ---
NURSE NOTES: RECEIVED PATIENT FROM Carlton ANGELES RN. PATIENT IS LYING IN BED ASLEEP. HOOKED TO DIRECTOR OF GOLF. TRACH ON SHILEY 6 XLT, TPIECE AT 28%, 6L. NO SIGNS OF DISTRESS OF THE MOMENT. G-JT TUBE IN PLACE, DRY AND INTACT DRESSING. RUNNING GTF VITAL AF 1.2 AT 60ML/HR ON J-TUBE, G-TUBE BY GRAVITY. PUREWICK NOTED. SKIN ALTERATION NOTED. ON OVERLAY MATTRESS. WITH L UA PICC LINE, DRESSING DRY AND INTACT. CALL LIGHT WITHIN REACH. BED AT LOWEST POSITION. SIRE RAILS UP AND PADDED. WILL CONTINUE TO MONITOR.
--- NOTE | 2019-04-16 07:09 | General Progress Note ---
Assessment/Plan Problem List: (1) Seizure ICD Codes: R56.9 - Unspecified convulsions SNOMED: 15725884 (2) Anemia ICD Codes: D64.9 - Anemia, unspecified SNOMED: 995046067 Qualifiers: Qualified Codes: D64.9 - Anemia, unspecified (3) Sepsis ICD Codes: A41.9 - Sepsis, unspecified organism SNOMED: 02743090, 702995541 Qualifiers: Qualified Codes: A41.9 - Sepsis, unspecified organism (4) Respiratory failure with hypoxia ICD Codes: J96.91 - Respiratory failure, unspecified with hypoxia SNOMED: 27496263886921432 Qualifiers: Qualified Codes: J96.21 - Acute and chronic respiratory failure with hypoxia (5) HCAP (healthcare-associated pneumonia) ICD Codes: J18.9 - Pneumonia, unspecified organism SNOMED: 743456239, 592178026 (6) Sacral decubitus ulcer ICD Codes: L89.159 - Pressure ulcer of sacral region, unspecified stage SNOMED: 405886938 (7) HTN (hypertension) ICD Codes: I10 - Essential (primary) hypertension SNOMED: 27465539 (8) Chronic vegetative state ICD Codes: R40.3 - Persistent vegetative state SNOMED: 28656826 (9) Chronic respiratory failure ICD Codes: J96.10 - Chronic respiratory failure, unspecified whether with hypoxia or hypercapnia SNOMED: 79005043 (10) Limited mobility ICD Codes: Z74.09 - Other reduced mobility SNOMED: 8109860 Status: stable, progressing Assessment/Plan: vent as needed resp rx suctioning j tube feeds g port to gravity skin care sz rx monitor lfts bowel regime dc planning Subjective ROS Limited/Unobtainable: Yes Constitutional: Reports: malaise, weakness HEENT: Reports: no symptoms Cardiovascular: Reports: no symptoms Respiratory: Reports: cough, shortness of breath, sputum Gastrointestinal/Abdominal: Reports: difficulty swallowing Genitourinary: Reports: no symptoms Neurologic/Psychiatric: Reports: pre-existing deficit, seizure Endocrine: Reports: no symptoms Hematologic/Lymphatic: Reports: anemia Allergies: Coded Allergies: CODEINE (Verified Allergy, Unknown, HIVES, 09/15/09) All Systems: reviewed and negative except above Subjective no events. no reports of bleeding. tolerating feeds, no vomiting. minimal secretions. no szs Objective Last 24 Hour Vital Signs Date Time Temp Pulse Resp B/P (MAP) Pulse Ox O2 Delivery O2 Flow Rate FiO2 04/16/19 06:00 98.6 82 23 112/36 (61) 97 04/16/19 05:00 86 20 124/40 (68) 97 04/16/19 04:00 5.0 28 04/16/19 04:00 T-piece 5.0 T-piece 5.0 04/16/19 04:00 86 04/16/19 04:00 87 23 121/41 (67) 97 04/16/19 03:00 81 27 113/42 (65) 97 04/16/19 02:48 80 24 98 T-Piece 5.0 28 81 26 97 04/16/19 02:00 82 26 107/44 (65) 97 04/16/19 01:14 98 T-Piece 5.0 28 04/16/19 01:00 84 24 109/40 (63) 96 04/16/19 00:00 84 04/16/19 00:00 T-piece 5.0 T-piece 5.0 04/16/19 00:00 5.0 28 04/16/19 00:00 99.0 88 25 123/41 (68) 98 04/15/19 23:02 85 23 99 T-Piece 5.0 28 79 26 96 04/15/19 23:00 89 21 137/42 (73) 97 04/15/19 22:00 83 21 121/46 (71) 98 04/15/19 21:00 86 20 135/45 (75) 99 04/15/19 20:00 T-piece 5.0 T-piece 5.0 04/15/19 20:00 90 04/15/19 20:00 5.0 28 04/15/19 20:00 99.1 83 23 108/45 (66) 96 04/15/19 19:16 86 19 98 T-Piece 5.0 28 84 24 97 04/15/19 19:16 98 T-Piece 5.0 28 04/15/19 19:00 84 24 102/39 (60) 97 04/15/19 18:00 88 23 111/47 (68) 97 04/15/19 17:00 89 25 122/36 (64) 98 04/15/19 16:00 94 04/15/19 16:00 5.0 28 04/15/19 16:00 T-piece 5.0 T-piece 5.0 04/15/19 16:00 98.7 92 21 108/94 (99) 97 04/15/19 15:00 92 27 115/43 (67) 98 04/15/19 14:50 82 20 100 T-Piece 5.0 28 81 20 98 04/15/19 14:00 5.0 28 04/15/19 14:00 90 24 118/48 (71) 98 04/15/19 13:00 90 26 118/30 (59) 97 04/15/19 12:00 5.0 28 04/15/19 12:00 92 04/15/19 12:00 99.0 92 26 124/26 (58) 97 04/15/19 12:00 T-piece 5.0 T-piece 5.0 04/15/19 11:15 78 20 100 T-Piece 5.0 28 76 20 99 04/15/19 11:15 99 T-Piece 5.0 28 04/15/19 11:00 90 30 131/33 (65) 94 04/15/19 10:00 85 23 145/36 (72) 99 04/15/19 09:00 82 23 122/38 (66) 98 04/15/19 08:00 5.0 28 04/15/19 08:00 99.0 83 23 134/40 (71) 98 04/15/19 08:00 84 04/15/19 08:00 T-piece 5.0 T-piece 5.0 04/15/19 07:29 89 24 100 T-Piece 5.0 28 89 28 98 04/15/19 07:29 98 T-Piece 5.0 28 Intake and Output 04/15/19 04/16/19 19:00 07:00 Intake Total 830 ml 1110 ml Output Total 300 ml 1350 ml Balance 530 ml -240 ml Free Water 80 ml 225 ml Tube Feeding 720 ml 660 ml Other 30 ml 225 ml Output Urine Total 300 ml 1050 ml Gastric Drainage Total 300 ml # Bowel Movements 1 Height (Feet): 5 Height (Inches): 3.00 Weight (Pounds): 136 Objective General Appearance: WD/WN, confused. on trach collar Neck: supple Cardiovascular: normal rate, regular rhythm Respiratory/Chest: chest wall non-tender, rhonchi - bilaterally(minimal) Abdomen: normal bowel sounds, non tender, soft, no organomegaly Edema: no edema noted Arm (L), no edema noted Arm (R), no edema noted Leg (L), no edema noted Leg (R), no edema noted Pedal (L), no edema noted Pedal (R), no edema noted Generalized Neurologic: disoriented, unresponsive, aphasia Irvin Beltrán MD Apr 16, 2019 07:09
--- NOTE | 2019-04-16 08:21 | Pulmonology Progress Note ---
Assessment/Plan Assessment/Plan Impression: history of Sepsis history of Pneumonia Trach, G tube, Hypertension, Cardiac disease, Dementia, Previous CVA, Seizure disorder, Respiratory failure with hypoxia Anemia, Sacral ulcer renal cyst chronic pulmonary congestion Plan support as able Vent PRN oxygen low flow aspiration precautions to continue elevate head and monitor secretions DNR. No CPR. ICU care reviewed meds noted off load as able nutrition monitor residual and reflux aspiration all changes noted and discussed hope to transfer to [facility] if family agrees medications/laboratory data/nursing notes/ICU care reviewed in detail note reviewed and edited care discussed with RN and RT Subjective ROS Limited/Unobtainable: Yes Allergies: Coded Allergies: CODEINE (Verified Allergy, Unknown, HIVES, 09/15/09) Subjective overnight events noted; respiratory status reviewed d/w with primary and ICU team ICU care issues discussed bed bound and obtunded meds reviewed Objective Last 24 Hour Vital Signs Date Time Temp Pulse Resp B/P (MAP) Pulse Ox O2 Delivery O2 Flow Rate FiO2 04/16/19 07:14 96 T-Piece 5.0 28 04/16/19 07:13 82 23 99 T-Piece 5.0 28 80 22 96 04/16/19 07:00 82 23 120/60 (80) 97 04/16/19 06:00 98.6 82 23 112/36 (61) 97 04/16/19 05:00 86 20 124/40 (68) 97 04/16/19 04:00 5.0 28 04/16/19 04:00 T-piece 5.0 T-piece 5.0 04/16/19 04:00 86 04/16/19 04:00 87 23 121/41 (67) 97 04/16/19 03:00 81 27 113/42 (65) 97 04/16/19 02:48 80 24 98 T-Piece 5.0 28 81 26 97 04/16/19 02:00 82 26 107/44 (65) 97 04/16/19 01:14 98 T-Piece 5.0 28 04/16/19 01:00 84 24 109/40 (63) 96 04/16/19 00:00 84 04/16/19 00:00 T-piece 5.0 T-piece 5.0 04/16/19 00:00 5.0 28 04/16/19 00:00 99.0 88 25 123/41 (68) 98 1/15/20 23:02 85 23 99 T-Piece 5.0 28 79 26 96 04/15/19 23:00 89 21 137/42 (73) 97 04/15/19 22:00 83 21 121/46 (71) 98 04/15/19 21:00 86 20 135/45 (75) 99 04/15/19 20:00 T-piece 5.0 T-piece 5.0 04/15/19 20:00 90 04/15/19 20:00 5.0 28 04/15/19 20:00 99.1 83 23 108/45 (66) 96 04/15/19 19:16 86 19 98 T-Piece 5.0 28 84 24 97 04/15/19 19:16 98 T-Piece 5.0 28 04/15/19 19:00 84 24 102/39 (60) 97 04/15/19 18:00 88 23 111/47 (68) 97 04/15/19 17:00 89 25 122/36 (64) 98 04/15/19 16:00 94 04/15/19 16:00 5.0 28 04/15/19 16:00 T-piece 5.0 T-piece 5.0 04/15/19 16:00 98.7 92 21 108/94 (99) 97 04/15/19 15:00 92 27 115/43 (67) 98 04/15/19 14:50 82 20 100 T-Piece 5.0 28 81 20 98 04/15/19 14:00 5.0 28 04/15/19 14:00 90 24 118/48 (71) 98 04/15/19 13:00 90 26 118/30 (59) 97 04/15/19 12:00 5.0 28 04/15/19 12:00 92 04/15/19 12:00 99.0 92 26 124/26 (58) 97 04/15/19 12:00 T-piece 5.0 T-piece 5.0 04/15/19 11:15 78 20 100 T-Piece 5.0 28 76 20 99 04/15/19 11:15 99 T-Piece 5.0 28 04/15/19 11:00 90 30 131/33 (65) 94 04/15/19 10:00 85 23 145/36 (72) 99 04/15/19 09:00 82 23 122/38 (66) 98 Intake and Output 04/15/19 04/16/19 19:00 07:00 Intake Total 830 ml 1170 ml Output Total 300 ml 1650 ml Balance 530 ml -480 ml Free Water 80 ml 225 ml Tube Feeding 720 ml 720 ml Other 30 ml 225 ml Output Urine Total 300 ml 1050 ml Gastric Drainage Total 600 ml # Bowel Movements 1 Objective WDWN NAD contracted off vent reduced breath sounds bilaterally without rhonchi or wheeze [id number] without MRG NABS nontender no HSM no CC trace edema same nonfocal nonverbal trach and gt reviewed and edited Current Medications Medications (Trade) Dose Ordered Sig/Maicol Route PRN Reason Start Time Stop Time Status Last Admin Dose Admin Acetaminophen (Tylenol) 650 mg Q6H PRN GT Mild Pain/Temp > 100.5 03/23/19 15:15 04/22/19 15:14 04/15/19 22:23 Albuterol/ Ipratropium (Albuterol/ Ipratropium) 3 ml Q4HRT HHN 04/15/19 07:00 04/20/19 06:59 04/16/19 07:13 Atropine Sulfate (Atropine Opth Adriana) 1 drop THREE TIMES A DAY SL 04/08/19 09:00 05/07/19 20:59 04/15/19 17:29 Chlorhexidine Gluconate (Cesilia-Hex 2%) 1 applic DAILY@2000 TOPIC 04/12/19 20:00 05/12/19 19:59 04/15/19 20:23 Folic Acid (Folate) 1 mg DAILY GT 04/08/19 09:00 05/08/19 08:59 04/15/19 09:45 Heparin Sodium (Porcine) (Heparin 5000 units/ml) 5,000 units EVERY 12 HOURS SUBQ 04/01/19 10:00 05/01/19 09:59 04/15/19 20:27 Hydralazine HCl (Apresoline) 25 mg Q6H PRN ORAL SBP above 150 04/06/19 02:45 05/06/19 02:44 04/06/19 11:15 Lansoprazole (Prevacid) 30 mg Q12HR GT 03/29/19 09:00 04/24/19 20:59 04/15/19 20:24 Levetiracetam (Keppra) 750 mg Q12HR GT 04/07/19 21:00 05/07/19 20:59 04/15/19 20:25 Ondansetron HCl (Zofran) 4 mg Q4H PRN IVP Nausea & Vomiting 03/18/19 18:15 04/17/19 18:14 03/21/19 08:27 Sorbitol (Sorbitol) 30 ml BIDPRN PRN ORAL Constipation 04/13/19 11:15 05/13/19 11:14 Sorbitol (sorbitoL) 30 ml DAILY GT 04/14/19 09:00 05/14/19 08:59 04/15/19 09:45 Amaury Chan MD Apr 16, 2019 08:21
--- NOTE | 2019-04-16 08:30 | NUR ---
NURSE NOTES: SEEN AND EXAMINED BY DR. GREGORIO.
--- NOTE | 2019-04-16 09:49 | Infectious Diseases Prog Note ---
Assessment/Plan Assessment/Plan A 1. Providencia & Klebsiella pneumonia treated 2. respiratory failure 3. hypertension 4. CVA 5. dementia 6. sacral decubitus ulcer 7. rectal VRE colonization 8. Anemia 9. Proteus UTI 10. Acute renal failure 11. Leukocytosis resolved P 1.Observe off antibiotic 2. Frequent suctioning 3. Remove PICC line before discharge Subjective ROS Limited/Unobtainable: Yes Constitutional: Denies: fever Allergies: Coded Allergies: CODEINE (Verified Allergy, Unknown, HIVES, 09/15/09) Objective Vital Signs Last 24 Hour Vital Signs Date Time Temp Pulse Resp B/P (MAP) Pulse Ox O2 Delivery O2 Flow Rate FiO2 04/16/19 07:14 96 T-Piece 5.0 28 04/16/19 07:13 82 23 99 T-Piece 5.0 28 80 22 96 04/16/19 07:00 82 23 120/60 (80) 97 04/16/19 06:00 98.6 82 23 112/36 (61) 97 04/16/19 05:00 86 20 124/40 (68) 97 04/16/19 04:00 5.0 28 04/16/19 04:00 T-piece 5.0 T-piece 5.0 04/16/19 04:00 86 04/16/19 04:00 87 23 121/41 (67) 97 04/16/19 03:00 81 27 113/42 (65) 97 04/16/19 02:48 80 24 98 T-Piece 5.0 28 81 26 97 04/16/19 02:00 82 26 107/44 (65) 97 04/16/19 01:14 98 T-Piece 5.0 28 04/16/19 01:00 84 24 109/40 (63) 96 04/16/19 00:00 84 04/16/19 00:00 T-piece 5.0 T-piece 5.0 04/16/19 00:00 5.0 28 04/16/19 00:00 99.0 88 25 123/41 (68) 98 04/15/19 23:02 85 23 99 T-Piece 5.0 28 79 26 96 04/15/19 23:00 89 21 137/42 (73) 97 04/15/19 22:00 83 21 121/46 (71) 98 04/15/19 21:00 86 20 135/45 (75) 99 04/15/19 20:00 T-piece 5.0 T-piece 5.0 04/15/19 20:00 90 04/15/19 20:00 5.0 28 04/15/19 20:00 99.1 83 23 108/45 (66) 96 04/15/19 19:16 86 19 98 T-Piece 5.0 28 84 24 97 04/15/19 19:16 98 T-Piece 5.0 28 04/15/19 19:00 84 24 102/39 (60) 97 04/15/19 18:00 88 23 111/47 (68) 97 04/15/19 17:00 89 25 122/36 (64) 98 04/15/19 16:00 94 04/15/19 16:00 5.0 28 04/15/19 16:00 T-piece 5.0 T-piece 5.0 04/15/19 16:00 98.7 92 21 108/94 (99) 97 04/15/19 15:00 92 27 115/43 (67) 98 04/15/19 14:50 82 20 100 T-Piece 5.0 28 81 20 98 04/15/19 14:00 5.0 28 04/15/19 14:00 90 24 118/48 (71) 98 04/15/19 13:00 90 26 118/30 (59) 97 04/15/19 12:00 5.0 28 04/15/19 12:00 92 04/15/19 12:00 99.0 92 26 124/26 (58) 97 04/15/19 12:00 T-piece 5.0 T-piece 5.0 04/15/19 11:15 78 20 100 T-Piece 5.0 28 76 20 99 04/15/19 11:15 99 T-Piece 5.0 28 04/15/19 11:00 90 30 131/33 (65) 94 04/15/19 10:00 85 23 145/36 (72) 99 Height (Feet): 5 Height (Inches): 3.00 Weight (Pounds): 136 HEENT: mucous membranes moist, status post trach Respiratory/Chest: decreased breath sounds, other - on Tbar Cardiovascular: normal rate, other - R arm PICC line Abdomen: soft, non tender, other - GT feeding Skin: ulcers Neurologic/Psychiatric: unresponsiveness, aphasia Current Medications Medications (Trade) Dose Ordered Sig/Maicol Route PRN Reason Start Time Stop Time Status Last Admin Dose Admin Acetaminophen (Tylenol) 650 mg Q6H PRN GT Mild Pain/Temp > 100.5 03/23/19 15:15 04/22/19 15:14 04/15/19 22:23 Albuterol/ Ipratropium (Albuterol/ Ipratropium) 3 ml Q4HRT HHN 04/15/19 07:00 04/20/19 06:59 04/16/19 07:13 Atropine Sulfate (Atropine Opth Adriana) 1 drop THREE TIMES A DAY SL 04/08/19 09:00 05/07/19 20:59 04/15/19 17:29 Chlorhexidine Gluconate (Cesilia-Hex 2%) 1 applic DAILY@2000 TOPIC 04/12/19 20:00 05/12/19 19:59 04/15/19 20:23 Folic Acid (Folate) 1 mg DAILY GT 04/08/19 09:00 05/08/19 08:59 04/15/19 09:45 Heparin Sodium (Porcine) (Heparin 5000 units/ml) 5,000 units EVERY 12 HOURS SUBQ 04/01/19 10:00 05/01/19 09:59 04/15/19 20:27 Hydralazine HCl (Apresoline) 25 mg Q6H PRN ORAL SBP above 150 04/06/19 02:45 05/06/19 02:44 04/06/19 11:15 Lansoprazole (Prevacid) 30 mg Q12HR GT 03/29/19 09:00 04/24/19 20:59 04/15/19 20:24 Levetiracetam (Keppra) 750 mg Q12HR GT 04/07/19 21:00 05/07/19 20:59 04/15/19 20:25 Ondansetron HCl (Zofran) 4 mg Q4H PRN IVP Nausea & Vomiting 03/18/19 18:15 04/17/19 18:14 03/21/19 08:27 Sorbitol (Sorbitol) 30 ml BIDPRN PRN ORAL Constipation 04/13/19 11:15 05/13/19 11:14 Sorbitol (sorbitoL) 30 ml DAILY GT 04/14/19 09:00 05/14/19 08:59 04/15/19 09:45 Chauncey Liriano MD Apr 16, 2019 09:49
[2019-04-16] MEDS: Heparin 5000 units/ml inj SUBQ SCH ×2 (09:51→20:16)
--- NOTE | 2019-04-16 09:52 | NUR ---
NURSE NOTES: SEEN AND EXAMINED BY DR Jm AMARO. TOLERATING GTF. NO SIGNS OF DISTRESS OF THE MOMENT.
--- NOTE | 2019-04-16 10:30 | NUR ---
NURSE NOTES: PATIENT KEPT CLEAN AND DRY. WOUND DRESSING DONE. TURNED AND REPOSITIONED PATIENT. WILL CONTINUE TO MONITOR.
[2019-04-16] MEDS: Sorbitol Solution UD 30ml GT SCH (10:46)
--- NOTE | 2019-04-16 12:30 | NUR ---
NURSE NOTES: ORAL CARE DONE. TOLERATING TPIECE ON 28%, 5L. NO SIGNS OF DISTRESS.
--- NOTE | 2019-04-16 14:13 | NUR ---
NURSE NOTES: TURNED, SUCTIONED AND REPOSITIONED. SATING AT 99%. WILL CONTINUE TO MONITOR.
--- NOTE | 2019-04-16 16:30 | NUR ---
NURSE NOTES: TURNED AND REPOSITIONED PATIENT. AWAITNG FOR TRANSFER. WILL CONTINUE TO MONITOR.
--- NOTE | 2019-04-16 18:30 | NUR ---
NURSE NOTES: TURNED AND REPOSITIONED PATIENT. WILL CONTINUE TO MONITOR.
--- NOTE | 2019-04-16 18:59 | NUR ---
NURSE NOTES:WOUND CARE FOLLOW-UP NOTES:Sacrum, R and L ischial wounds have resolved. Hyperpigmentation with historical scars noted to each aforementioned sites. Full thickness wound in web space of L index and L thumb. Beefy granulation at base of wound . Hypergranulation resolved. Edges pink and flat (L)2.3cm x (W)3.1cm.small amt serous exudate noted. No odor noted. Periwound without erythema or elevation in skin temp. Skin assessed under tracheal collar and no evidence of skin breakdown noted.. Bilat foot drop noted . Both heels and malleoli are blanchable. Wound care provided. Good hand hygiene provided prior to wound care. L hand wound cleansed with Saline. Silvasorb gel applied to wound . Calcium Alginate applied. Cavilon Skin Barrier periwound.ABD pad applied then Wrapped with Kerlix drsg ,weaving Kerlix between each digits of L hand for separation Rolled Kerlix placed in palm of hand to minimize contracture.Moisture Barrier Paste applied to Sacrum, R and L ischial tuberosities and each site covered with Optifoam drsg. Cavilon Skin Barrier applied to both heels and malleoli both feet. Each area covered with Optifoam drsg and both heels floated off mattress with pillow.Pt positioned with pillow on R side. Pt has an APM/LAURITA mattress overlay. Wound Tx. are effective and continued as ordered. All wound prevention protocols continued as care planned.
--- NOTE | 2019-04-16 19:23 | NUR ---
HAND-OFF: Report given to Kodak Pitts RN.
--- NOTE | 2019-04-16 19:30 | NUR ---
NURSE NOTES: Received patient from Deirdre PAEZ. Patient sleeping at this time.no s/s of acute distress noted. Patient arousable to name but does not track or communicate. Patient trach to T piece with 28% FIO2, satting 100%. Patient with moderate secretions. Patient has right upper arm PICC line that is patent. Dressing dry and intact. Patient has gastrostomy/jejunostomy tube that is patent, asymptomatic, and running tube feeding of vital AF at 65mL/hr through the J tube and draining to gravity from the G tube. Patient has bilateral ischium and sacral old/healed/resolved pressure injury with dressing dry and intact, Optifoam dressing on bilateral heel for protection. bilateral heels elevated. Patient on low air loss mattress for wound management. Patient clean and dry. Patient bed in low position with bed alarm on and call light in reach at this time. will continue plan of care.
[2019-04-16] MEDS: Dyna-Hex 2% Top Sol 2oz TOPIC SCH (20:15)
--- NOTE | 2019-04-16 21:01 | Progress Note ---
DATE: 04/16/2019 SUBJECTIVE: The patient in the room, ICU room D. The patient is seen on a followup. PROBLEM LIST: Acute renal failure, chronic respiratory failure, anemia and sepsis. The patient also has history of seizures. The patient is bed-bound and DNR. MEDICATIONS: According to the list. OBJECTIVE: VITAL SIGNS: Today the patient temperature is 98.4, pulse rate is 83, respiratory rate is 21, blood pressure 125/44. NECK: The patient has a trach, connected to oxygen. LUNGS: Decreased breath sounds over the bases. HEART: Regular with occasional irregular beat. ABDOMEN: Soft. GT tube in place. LABORATORY DATA: No labs available for today. PLAN: Continue current care. Monitor electrolytes and renal parameters, and discharge planning according to the case management. Eric Cortez M.D. DR: CARLEE JOB#: [id number] CC:
--- NOTE | 2019-04-16 21:30 | NUR ---
NURSE NOTES: CHG bath given tolerated well. turned and repositioned. oral care provided. pure wick connected to low intermittent suction draining. frequent visual checks continued. will continue plan of care.
--- NOTE | 2019-04-16 22:28 | General Progress Note ---
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 - Elevated glucose - elevated BUN/Cr - poor Prognosis Recommendations - daily sorbitol, and PRN sorbitol - Follow BUN/Cr - Cristian BID - antibiotic ointment to GJT site PRN - aspiration precautions - elevate HOB - Vital AF 1.2 - check q 6 hour FS - transfuse to keep Hg > 7 - J tube feeds - G tube drain Subjective Allergies: Coded Allergies: CODEINE (Verified Allergy, Unknown, HIVES, 09/15/09) Subjective above noted tolerating TF via J port d/w RN (+) BM Objective Last 24 Hour Vital Signs Date Time Temp Pulse Resp B/P (MAP) Pulse Ox O2 Delivery O2 Flow Rate FiO2 04/16/19 19:06 89 24 100 T-Piece 5.0 28 86 27 99 04/16/19 19:06 99 T-Piece 5.0 28 04/16/19 19:00 87 25 132/55 (80) 97 04/16/19 18:00 83 25 114/41 (65) 97 04/16/19 17:00 81 25 120/41 (67) 98 04/16/19 16:00 5.0 28 04/16/19 16:00 85 04/16/19 16:00 T-piece 5.0 T-piece 5.0 04/16/19 16:00 98.3 85 25 107/42 (63) 97 04/16/19 15:00 88 24 114/49 (70) 96 04/16/19 14:25 87 24 98 T-Piece 5.0 28 86 22 97 04/16/19 14:00 83 21 125/44 (71) 97 04/16/19 13:00 84 22 122/33 (62) 98 04/16/19 12:35 99 T-Piece 5.0 28 04/16/19 12:00 T-piece 5.0 T-piece 5.0 04/16/19 12:00 83 04/16/19 12:00 98.4 85 21 118/34 (62) 98 04/16/19 12:00 5.0 28 04/16/19 11:05 82 23 100 T-Piece 5.0 28 81 22 96 04/16/19 11:00 84 22 147/52 (83) 100 04/16/19 10:00 88 22 142/68 (92) 99 04/16/19 09:00 87 22 113/43 (66) 96 04/16/19 08:00 85 04/16/19 08:00 98.2 86 23 119/97 (104) 96 04/16/19 08:00 T-piece 5.0 T-piece 5.0 04/16/19 08:00 5.0 28 04/16/19 07:14 96 T-Piece 5.0 28 04/16/19 07:13 82 23 99 T-Piece 5.0 28 80 22 96 04/16/19 07:00 82 23 120/60 (80) 97 04/16/19 06:00 98.6 82 23 112/36 (61) 97 04/16/19 05:00 86 20 124/40 (68) 97 04/16/19 04:00 5.0 28 04/16/19 04:00 T-piece 5.0 T-piece 5.0 04/16/19 04:00 86 04/16/19 04:00 87 23 121/41 (67) 97 04/16/19 03:00 81 27 113/42 (65) 97 04/16/19 02:48 80 24 98 T-Piece 5.0 28 81 26 97 04/16/19 02:00 82 26 107/44 (65) 97 04/16/19 01:14 98 T-Piece 5.0 28 04/16/19 01:00 84 24 109/40 (63) 96 04/16/19 00:00 84 04/16/19 00:00 T-piece 5.0 T-piece 5.0 04/16/19 00:00 5.0 28 04/16/19 00:00 99.0 88 25 123/41 (68) 98 04/15/19 23:02 85 23 99 T-Piece 5.0 28 79 26 96 04/15/19 23:00 89 21 137/42 (73) 97 Intake and Output 04/15/19 04/16/19 19:00 07:00 Intake Total 830 ml 1170 ml Output Total 300 ml 1650 ml Balance 530 ml -480 ml Free Water 80 ml 225 ml Tube Feeding 720 ml 720 ml Other 30 ml 225 ml Output Urine Total 300 ml 1050 ml Gastric Drainage Total 600 ml # Bowel Movements 1 Height (Feet): 5 Height (Inches): 3.00 Weight (Pounds): 136 Objective Debilitated AA woman non-verbal, obtunded NCAT (+) trach coarse BS RR obese abd, (+) GJT no edema (+) contractured extremities Celio Vaughan MD Apr 16, 2019 22:28
--- NOTE | 2019-04-16 23:30 | NUR ---
NURSE NOTES: Patient in bed sleeping comfortably. no s/s of acute distress noted. satting 100%. repositioned in bed. no fever. no n/v. no diarrhea. comfort measure provided. will continue plan of care.
[2019-04-17] VITALS (28 sets, daily range): BP systolic 109–140; BP diastolic 28–54
--- NOTE | 2019-04-17 01:30 | NUR ---
NURSE NOTES: patient in bed sleeping comfortably. no s/s of acute distress noted. No fever. No n/v. no diarrhea. Turned and repositioned. Oral care and suctioned patient. HOB elevated.Frequent visual checks continued. Will continue plan of care.
--- NOTE | 2019-04-17 03:30 | NUR ---
NURSE NOTES: Bed bath given tolerated well. no s/s of hypo/hyperglycemia. Repositioned for comfort and pillow support provided
[2019-04-17] MEDS: Albuterol/Ipratropium 3ml neb HHN SCH ×6 (03:42→23:02)
--- NOTE | 2019-04-17 04:45 | Progress Note ---
DATE: 04/16/2019 CARDIOLOGY PROGRESS NOTE SUBJECTIVE: The patient's condition is largely unchanged. She remains on T-collar. OBJECTIVE: VITAL SIGNS: Blood pressure 126/50, pulse 86, respirations 25. HEENT: Thin secretions. LUNGS: Good breath sounds. HEART: Regular rhythm and rate. Normal S1, S2. ABDOMEN: Soft. GJ-tube intact. EXTREMITIES: Trace edema. IMPRESSION: Remains stable from cardiovascular standpoint on current therapy. PLAN: 1. Await transfer to subacute facility. 2. Continue monitoring cardiovascular parameters with adjustments in therapy as needed. Bg Hagen M.D. DR: DAMEON JOB#: [id number] CC:
--- NOTE | 2019-04-17 07:15 | NUR ---
HAND-OFF: Report given to Neeta PAEZ.
--- NOTE | 2019-04-17 07:20 | NUR ---
NURSE NOTES: Report received from Umm Pitts RN.Pt resting in bed asleep noted no resp distress needing frequent suctioning,pt sounds like congested all the time.HOB elevated,no signs of pain or discomfort,SR on the monitor,pt with JT feeding and Gt,JT is for feeding Vital AF1.2 at 60 ml/hr,GT is for medic and connected to gravity,pt on Purewick,draining yellow urine,skin warm and dry JOSY PICC line intact ,SR up x2 bed lock in lowest position will continue with plans of care.
--- NOTE | 2019-04-17 07:49 | General Progress Note ---
Assessment/Plan Problem List: (1) Seizure ICD Codes: R56.9 - Unspecified convulsions SNOMED: 56027384 (2) Anemia ICD Codes: D64.9 - Anemia, unspecified SNOMED: 885147712 Qualifiers: Qualified Codes: D64.9 - Anemia, unspecified (3) Sepsis ICD Codes: A41.9 - Sepsis, unspecified organism SNOMED: 13754289, 098255094 Qualifiers: Qualified Codes: A41.9 - Sepsis, unspecified organism (4) Respiratory failure with hypoxia ICD Codes: J96.91 - Respiratory failure, unspecified with hypoxia SNOMED: 04845711700345052 Qualifiers: Qualified Codes: J96.21 - Acute and chronic respiratory failure with hypoxia (5) HCAP (healthcare-associated pneumonia) ICD Codes: J18.9 - Pneumonia, unspecified organism SNOMED: 433730425, 375481399 (6) Sacral decubitus ulcer ICD Codes: L89.159 - Pressure ulcer of sacral region, unspecified stage SNOMED: 120373862 (7) HTN (hypertension) ICD Codes: I10 - Essential (primary) hypertension SNOMED: 02620955 (8) Chronic vegetative state ICD Codes: R40.3 - Persistent vegetative state SNOMED: 27456627 (9) Chronic respiratory failure ICD Codes: J96.10 - Chronic respiratory failure, unspecified whether with hypoxia or hypercapnia SNOMED: 14138851 (10) Limited mobility ICD Codes: Z74.09 - Other reduced mobility SNOMED: 2310761 Status: stable, progressing Assessment/Plan: vent as needed resp rx suctioning j tube feeds g port to gravity skin care sz rx check labs bowel regime dc planning Subjective ROS Limited/Unobtainable: Yes Constitutional: Reports: malaise, weakness HEENT: Reports: no symptoms Cardiovascular: Reports: no symptoms Respiratory: Reports: cough, shortness of breath, sputum Gastrointestinal/Abdominal: Reports: difficulty swallowing Genitourinary: Reports: no symptoms Neurologic/Psychiatric: Reports: pre-existing deficit, seizure Endocrine: Reports: no symptoms Hematologic/Lymphatic: Reports: no symptoms Allergies: Coded Allergies: CODEINE (Verified Allergy, Unknown, HIVES, 09/15/09) All Systems: reviewed and negative except above Subjective no events. no reports of bleeding. tolerating feeds, no vomiting. minimal secretions. no szs Objective Last 24 Hour Vital Signs Date Time Temp Pulse Resp B/P (MAP) Pulse Ox O2 Delivery O2 Flow Rate FiO2 04/17/19 07:08 100 T-Piece 5.0 28 04/17/19 07:08 78 22 100 T-Piece 5.0 28 82 23 100 04/17/19 07:00 81 22 129/39 (69) 100 04/17/19 06:00 85 22 109/33 (58) 97 04/17/19 05:30 86 24 128/28 (61) 98 04/17/19 05:00 88 23 137/29 (65) 98 04/17/19 04:30 88 28 124/35 (64) 97 04/17/19 04:00 T-piece 5.0 T-piece 5.0 04/17/19 04:00 87 04/17/19 04:00 98.6 86 22 127/34 (65) 100 04/17/19 04:00 5.0 28 04/17/19 03:42 88 24 100 T-Piece 5.0 28 87 25 98 04/17/19 03:30 86 23 126/35 (65) 99 04/17/19 03:00 88 23 128/46 (73) 99 04/17/19 02:00 88 26 135/44 (74) 96 04/17/19 01:14 98 T-Piece 5.0 28 04/17/19 01:00 88 26 121/50 (73) 98 04/17/19 00:00 89 04/17/19 00:00 98.8 85 28 121/46 (71) 98 04/17/19 00:00 5.0 28 04/17/19 00:00 T-piece 5.0 T-piece 5.0 04/16/19 23:54 85 22 99 T-Piece 5.0 28 86 26 96 04/16/19 23:00 86 24 121/46 (71) 97 04/16/19 22:00 86 25 126/50 (75) 97 04/16/19 21:00 89 26 117/55 (75) 96 04/16/19 20:00 T-piece 5.0 T-piece 5.0 04/16/19 20:00 98.8 87 24 130/54 (79) 04/16/19 20:00 5.0 28 04/16/19 20:00 87 04/16/19 19:06 89 24 100 T-Piece 5.0 28 86 27 99 04/16/19 19:06 99 T-Piece 5.0 28 04/16/19 19:00 87 25 132/55 (80) 97 04/16/19 18:00 83 25 114/41 (65) 97 04/16/19 17:00 81 25 120/41 (67) 98 04/16/19 16:00 5.0 28 04/16/19 16:00 85 04/16/19 16:00 T-piece 5.0 T-piece 5.0 04/16/19 16:00 98.3 85 25 107/42 (63) 97 04/16/19 15:00 88 24 114/49 (70) 96 04/16/19 14:25 87 24 98 T-Piece 5.0 28 86 22 97 04/16/19 14:00 83 21 125/44 (71) 97 04/16/19 13:00 84 22 122/33 (62) 98 04/16/19 12:35 99 T-Piece 5.0 28 04/16/19 12:00 T-piece 5.0 T-piece 5.0 04/16/19 12:00 83 04/16/19 12:00 98.4 85 21 118/34 (62) 98 04/16/19 12:00 5.0 28 04/16/19 11:05 82 23 100 T-Piece 5.0 28 81 22 96 04/16/19 11:00 84 22 147/52 (83) 100 04/16/19 10:00 88 22 142/68 (92) 99 04/16/19 09:00 87 22 113/43 (66) 96 04/16/19 08:00 85 04/16/19 08:00 98.2 86 23 119/97 (104) 96 04/16/19 08:00 T-piece 5.0 T-piece 5.0 04/16/19 08:00 5.0 28 Intake and Output 04/16/19 04/17/19 18:59 06:59 Intake Total 1170 ml 1410 ml Output Total 700 ml 900 ml Balance 470 ml 510 ml Free Water 225 ml 225 ml Tube Feeding 720 ml 960 ml Other 225 ml 225 ml Output Urine Total 400 ml 400 ml Gastric Drainage Total 300 ml 500 ml Height (Feet): 5 Height (Inches): 3.00 Weight (Pounds): 123 Objective General Appearance: WD/WN, confused. on trach collar Neck: supple Cardiovascular: normal rate, regular rhythm Respiratory/Chest: chest wall non-tender, rhonchi - bilaterally(minimal) Abdomen: normal bowel sounds, non tender, soft, no organomegaly Edema: no edema noted Arm (L), no edema noted Arm (R), no edema noted Leg (L), no edema noted Leg (R), no edema noted Pedal (L), no edema noted Pedal (R), no edema noted Generalized Neurologic: disoriented, unresponsive, aphasia Irvin Beltárn MD Apr 17, 2019 07:49
--- NOTE | 2019-04-17 08:00 | NUR ---
NURSE NOTES: Seen by Dr Mitchell.no orders given
--- NOTE | 2019-04-17 08:48 | Pulmonology Progress Note ---
Assessment/Plan Assessment/Plan Impression: history of Sepsis history of Pneumonia Trach, G tube, Hypertension, Cardiac disease, Dementia, Previous CVA, Seizure disorder, Respiratory failure with hypoxia Anemia, Sacral ulcer renal cyst chronic pulmonary congestion Plan monitor for change in resp status off vent needs suctioning oxygen low flow aspiration precautions to continue elevate head and monitor secretions DNR. No CPR. ICU care reviewed meds noted off load as able nutrition monitor residual and reflux aspiration all changes noted and discussed chronic management reviewed medications/laboratory data/nursing notes/ICU care reviewed in detail note reviewed and edited care discussed with RN and RT Subjective ROS Limited/Unobtainable: Yes Allergies: Coded Allergies: CODEINE (Verified Allergy, Unknown, HIVES, 09/15/09) Subjective overnight events noted; respiratory status reviewed d/w with primary and ICU team ICU care issues discussed bed bound and obtunded meds reviewed Objective Last 24 Hour Vital Signs Date Time Temp Pulse Resp B/P (MAP) Pulse Ox O2 Delivery O2 Flow Rate FiO2 04/17/19 07:08 100 T-Piece 5.0 28 04/17/19 07:08 78 22 100 T-Piece 5.0 28 82 23 100 04/17/19 07:00 81 22 129/39 (69) 100 04/17/19 06:00 85 22 109/33 (58) 97 04/17/19 05:30 86 24 128/28 (61) 98 04/17/19 05:00 88 23 137/29 (65) 98 04/17/19 04:30 88 28 124/35 (64) 97 04/17/19 04:00 T-piece 5.0 T-piece 5.0 04/17/19 04:00 87 04/17/19 04:00 98.6 86 22 127/34 (65) 100 04/17/19 04:00 5.0 28 04/17/19 03:42 88 24 100 T-Piece 5.0 28 87 25 98 04/17/19 03:30 86 23 126/35 (65) 99 04/17/19 03:00 88 23 128/46 (73) 99 04/17/19 02:00 88 26 135/44 (74) 96 04/17/19 01:14 98 T-Piece 5.0 28 04/17/19 01:00 88 26 121/50 (73) 98 04/17/19 00:00 89 04/17/19 00:00 98.8 85 28 121/46 (71) 98 04/17/19 00:00 5.0 28 04/17/19 00:00 T-piece 5.0 T-piece 5.0 04/16/19 23:54 85 22 99 T-Piece 5.0 28 86 26 96 04/16/19 23:00 86 24 121/46 (71) 97 04/16/19 22:00 86 25 126/50 (75) 97 04/16/19 21:00 89 26 117/55 (75) 96 04/16/19 20:00 T-piece 5.0 T-piece 5.0 04/16/19 20:00 98.8 87 24 130/54 (79) 04/16/19 20:00 5.0 28 04/16/19 20:00 87 04/16/19 19:06 89 24 100 T-Piece 5.0 28 86 27 99 04/16/19 19:06 99 T-Piece 5.0 28 04/16/19 19:00 87 25 132/55 (80) 97 04/16/19 18:00 83 25 114/41 (65) 97 04/16/19 17:00 81 25 120/41 (67) 98 04/16/19 16:00 5.0 28 04/16/19 16:00 85 04/16/19 16:00 T-piece 5.0 T-piece 5.0 04/16/19 16:00 98.3 85 25 107/42 (63) 97 04/16/19 15:00 88 24 114/49 (70) 96 04/16/19 14:25 87 24 98 T-Piece 5.0 28 86 22 97 04/16/19 14:00 83 21 125/44 (71) 97 04/16/19 13:00 84 22 122/33 (62) 98 04/16/19 12:35 99 T-Piece 5.0 28 04/16/19 12:00 T-piece 5.0 T-piece 5.0 04/16/19 12:00 83 04/16/19 12:00 98.4 85 21 118/34 (62) 98 04/16/19 12:00 5.0 28 04/16/19 11:05 82 23 100 T-Piece 5.0 28 81 22 96 04/16/19 11:00 84 22 147/52 (83) 100 04/16/19 10:00 88 22 142/68 (92) 99 04/16/19 09:00 87 22 113/43 (66) 96 Intake and Output 04/16/19 04/17/19 19:00 07:00 Intake Total 1170 ml 1410 ml Output Total 700 ml 600 ml Balance 470 ml 810 ml Free Water 225 ml 225 ml Tube Feeding 720 ml 960 ml Other 225 ml 225 ml Output Urine Total 400 ml 400 ml Gastric Drainage Total 300 ml 200 ml Objective WDWN NAD contracted off vent reduced breath sounds bilaterally without rhonchi or wheeze [id number] without MRG NABS nontender no HSM no CC trace edema same nonfocal nonverbal trach and gt reviewed and edited Current Medications Medications (Trade) Dose Ordered Sig/Maicol Route PRN Reason Start Time Stop Time Status Last Admin Dose Admin Acetaminophen (Tylenol) 650 mg Q6H PRN GT Mild Pain/Temp > 100.5 03/23/19 15:15 04/22/19 15:14 04/15/19 22:23 Albuterol/ Ipratropium (Albuterol/ Ipratropium) 3 ml Q4HRT HHN 04/15/19 07:00 04/20/19 06:59 04/17/19 07:08 Atropine Sulfate (Atropine Opth Adriana) 1 drop THREE TIMES A DAY SL 04/08/19 09:00 05/07/19 20:59 04/16/19 17:39 Chlorhexidine Gluconate (Cesilia-Hex 2%) 1 applic DAILY@1999 TOPIC 04/12/19 20:00 05/12/19 19:59 04/16/19 20:15 Folic Acid (Folate) 1 mg DAILY GT 04/08/19 09:00 05/08/19 08:59 04/16/19 09:50 Heparin Sodium (Porcine) (Heparin 5000 units/ml) 5,000 units EVERY 12 HOURS SUBQ 04/01/19 10:00 05/01/19 09:59 04/16/19 20:16 Hydralazine HCl (Apresoline) 25 mg Q6H PRN ORAL SBP above 150 04/06/19 02:45 05/06/19 02:44 04/06/19 11:15 Lansoprazole (Prevacid) 30 mg Q12HR GT 03/29/19 09:00 04/24/19 20:59 04/16/19 20:15 Levetiracetam (Keppra) 750 mg Q12HR GT 04/07/19 21:00 05/07/19 20:59 04/16/19 20:15 Ondansetron HCl (Zofran) 4 mg Q4H PRN IVP Nausea & Vomiting 03/18/19 18:15 04/17/19 18:14 03/21/19 08:27 Sorbitol (Sorbitol) 30 ml BIDPRN PRN ORAL Constipation 04/13/19 11:15 05/13/19 11:14 Sorbitol (sorbitoL) 30 ml DAILY GT 04/14/19 09:00 05/14/19 08:59 04/16/19 10:46 Amaury Chan MD Apr 17, 2019 08:48
[2019-04-17] MEDS: Sorbitol Solution UD 30ml GT SCH (09:18)
[2019-04-17] MEDS: Heparin 5000 units/ml inj SUBQ SCH ×2 (09:24→20:20)
--- NOTE | 2019-04-17 10:07 | Nephrology Progress Note ---
Assessment/Plan Problem List: (1) Acute renal failure (ARF) Assessment: Cr stable (2) Chronic respiratory failure (3) Anemia (4) Sepsis Assessment Acute renal failure Respiratory failure - Trach Low Mag- Low k , Low Na Anemia UTI / Sepsis Proteinuria / HypoAlbuminemia high Trigs Sz decubs bed bound DNR Plan Transfused previously now has JT bolus Albumin as needed K and Mag and Phos supplement as needed Hydrate as needed Urine studies avoid Nephrotoxics mag K Phos supplements as needed monitor renal parameters Subjective ROS Limited/Unobtainable: Yes Objective Objective Last 24 Hour Vital Signs Date Time Temp Pulse Resp B/P (MAP) Pulse Ox O2 Delivery O2 Flow Rate FiO2 04/17/19 08:00 98.3 86 24 128/31 (63) 100 04/17/19 08:00 5.0 28 04/17/19 08:00 T-piece 5.0 T-piece 5.0 04/17/19 07:08 100 T-Piece 5.0 28 04/17/19 07:08 78 22 100 T-Piece 5.0 28 82 23 100 04/17/19 07:00 81 22 129/39 (69) 100 04/17/19 06:00 85 22 109/33 (58) 97 04/17/19 05:30 86 24 128/28 (61) 98 04/17/19 05:00 88 23 137/29 (65) 98 04/17/19 04:30 88 28 124/35 (64) 97 04/17/19 04:00 T-piece 5.0 T-piece 5.0 04/17/19 04:00 87 04/17/19 04:00 98.6 86 22 127/34 (65) 100 04/17/19 04:00 5.0 28 04/17/19 03:42 88 24 100 T-Piece 5.0 28 87 25 98 04/17/19 03:30 86 23 126/35 (65) 99 04/17/19 03:00 88 23 128/46 (73) 99 04/17/19 02:00 88 26 135/44 (74) 96 04/17/19 01:14 98 T-Piece 5.0 28 04/17/19 01:00 88 26 121/50 (73) 98 04/17/19 00:00 89 04/17/19 00:00 98.8 85 28 121/46 (71) 98 04/17/19 00:00 5.0 28 04/17/19 00:00 T-piece 5.0 T-piece 5.0 04/16/19 23:54 85 22 99 T-Piece 5.0 28 86 26 96 04/16/19 23:00 86 24 121/46 (71) 97 04/16/19 22:00 86 25 126/50 (75) 97 04/16/19 21:00 89 26 117/55 (75) 96 04/16/19 20:00 T-piece 5.0 T-piece 5.0 04/16/19 20:00 98.8 87 24 130/54 (79) 04/16/19 20:00 5.0 28 04/16/19 20:00 87 04/16/19 19:06 89 24 100 T-Piece 5.0 28 86 27 99 04/16/19 19:06 99 T-Piece 5.0 28 04/16/19 19:00 87 25 132/55 (80) 97 04/16/19 18:00 83 25 114/41 (65) 97 04/16/19 17:00 81 25 120/41 (67) 98 04/16/19 16:00 5.0 28 04/16/19 16:00 85 04/16/19 16:00 T-piece 5.0 T-piece 5.0 04/16/19 16:00 98.3 85 25 107/42 (63) 97 04/16/19 15:00 88 24 114/49 (70) 96 04/16/19 14:25 87 24 98 T-Piece 5.0 28 86 22 97 04/16/19 14:00 83 21 125/44 (71) 97 04/16/19 13:00 84 22 122/33 (62) 98 04/16/19 12:35 99 T-Piece 5.0 28 04/16/19 12:00 T-piece 5.0 T-piece 5.0 04/16/19 12:00 83 04/16/19 12:00 98.4 85 21 118/34 (62) 98 04/16/19 12:00 5.0 28 04/16/19 11:05 82 23 100 T-Piece 5.0 28 81 22 96 1/16/20 11:00 84 22 147/52 (83) 100 Intake and Output 04/16/19 04/17/19 19:00 07:00 Intake Total 1170 ml 1410 ml Output Total 700 ml 600 ml Balance 470 ml 810 ml Free Water 225 ml 225 ml Tube Feeding 720 ml 960 ml Other 225 ml 225 ml Output Urine Total 400 ml 400 ml Gastric Drainage Total 300 ml 200 ml Height (Feet): 5 Height (Inches): 3.00 Weight (Pounds): 123 General Appearance: no apparent distress Cardiovascular: normal rate Respiratory/Chest: decreased breath sounds Abdomen: distended Objective no change Eric Cortez MD Apr 17, 2019 10:07
--- NOTE | 2019-04-17 10:29 | NUR ---
NURSE NOTES: Oral care done,tracheal and oral secretions suctioned frequently and PRN,turned and repositioned.
[2019-04-17 10:38] LABS: BASOPHILS % (AUTO) 0.6 % (0.0-2.0); EOSINOPHILS % (AUTO) 4.1 % (0.0-3.0); HEMATOCRIT 34.1 % (37.0-47.0); MEAN CORPUSCULAR VOLUME 91 FL (80-99); NEUTROPHILS % (AUTO) 63.3 % (45.0-75.0); PLATELET COUNT 197 K/UL (150-450); RED BLOOD COUNT 3.74 M/UL (4.20-5.40); RED CELL DISTRIBUTION WIDTH 15.2 % (11.6-14.8); WHITE BLOOD COUNT 10.4 K/UL (4.8-10.8)
[2019-04-17 10:58] LABS: ALANINE AMINOTRANSFERASE 113 U/L (12-78); ALBUMIN 3.2 G/DL (3.4-5.0); ALBUMIN/GLOBULIN RATIO 0.6 (1.0-2.7); ALKALINE PHOSPHATASE 143 U/L (46-116); ANION GAP 8 mmol/L (5-15); ASPARTATE AMINO TRANSFERASE 54 U/L (15-37); BILIRUBIN,TOTAL 0.2 MG/DL (0.2-1.0); BLOOD UREA NITROGEN 64 mg/dL (7-18); CALCIUM 9.3 MG/DL (8.5-10.1); CARBON DIOXIDE 29 MMOL/L (21-32); CHLORIDE 108 MMOL/L (98-107); CREATININE 0.9 MG/DL (0.55-1.30); POTASSIUM 4.5 MMOL/L (3.5-5.1); SODIUM 145 MMOL/L (136-145)
--- NOTE | 2019-04-17 13:30 | Infectious Diseases Prog Note ---
Assessment/Plan Assessment/Plan A 1. Providencia & Klebsiella pneumonia treated 2. respiratory failure 3. hypertension 4. CVA 5. dementia 6. sacral decubitus ulcer 7. rectal VRE colonization 8. Anemia 9. Proteus UTI 10. Acute renal failure 11. Leukocytosis resolved P 1.Observe off antibiotic 2. Frequent suctioning 3. Remove PICC line before discharge Subjective ROS Limited/Unobtainable: Yes Allergies: Coded Allergies: CODEINE (Verified Allergy, Unknown, HIVES, 09/15/09) Objective Vital Signs Last 24 Hour Vital Signs Date Time Temp Pulse Resp B/P (MAP) Pulse Ox O2 Delivery O2 Flow Rate FiO2 04/17/19 13:16 100 T-Piece 5.0 28 04/17/19 13:00 88 19 114/47 (69) 99 04/17/19 12:00 T-piece 5.0 T-piece 5.0 04/17/19 12:00 98.4 86 24 140/40 (73) 98 04/17/19 12:00 85 04/17/19 12:00 5.0 28 04/17/19 11:14 80 26 100 T-Piece 5.0 28 85 20 99 04/17/19 11:04 85 26 123/38 (66) 99 04/17/19 10:00 86 25 130/43 (72) 97 04/17/19 09:00 85 22 124/39 (67) 99 04/17/19 08:00 98.3 86 24 128/31 (63) 100 04/17/19 08:00 5.0 28 04/17/19 08:00 82 04/17/19 08:00 T-piece 5.0 T-piece 5.0 04/17/19 07:08 100 T-Piece 5.0 28 04/17/19 07:08 78 22 100 T-Piece 5.0 28 82 23 100 04/17/19 07:00 81 22 129/39 (69) 100 04/17/19 06:00 85 22 109/33 (58) 97 04/17/19 05:30 86 24 128/28 (61) 98 04/17/19 05:00 88 23 137/29 (65) 98 04/17/19 04:30 88 28 124/35 (64) 97 04/17/19 04:00 T-piece 5.0 T-piece 5.0 1/17/20 04:00 87 04/17/19 04:00 98.6 86 22 127/34 (65) 100 04/17/19 04:00 5.0 28 04/17/19 03:42 88 24 100 T-Piece 5.0 28 87 25 98 04/17/19 03:30 86 23 126/35 (65) 99 04/17/19 03:00 88 23 128/46 (73) 99 04/17/19 02:00 88 26 135/44 (74) 96 04/17/19 01:14 98 T-Piece 5.0 28 04/17/19 01:00 88 26 121/50 (73) 98 04/17/19 00:00 89 04/17/19 00:00 98.8 85 28 121/46 (71) 98 04/17/19 00:00 5.0 28 04/17/19 00:00 T-piece 5.0 T-piece 5.0 04/16/19 23:54 85 22 99 T-Piece 5.0 28 86 26 96 04/16/19 23:00 86 24 121/46 (71) 97 04/16/19 22:00 86 25 126/50 (75) 97 04/16/19 21:00 89 26 117/55 (75) 96 04/16/19 20:00 T-piece 5.0 T-piece 5.0 04/16/19 20:00 98.8 87 24 130/54 (79) 04/16/19 20:00 5.0 28 04/16/19 20:00 87 04/16/19 19:06 89 24 100 T-Piece 5.0 28 86 27 99 04/16/19 19:06 99 T-Piece 5.0 28 04/16/19 19:00 87 25 132/55 (80) 97 04/16/19 18:00 83 25 114/41 (65) 97 04/16/19 17:00 81 25 120/41 (67) 98 04/16/19 16:00 5.0 28 04/16/19 16:00 85 04/16/19 16:00 T-piece 5.0 T-piece 5.0 04/16/19 16:00 98.3 85 25 107/42 (63) 97 04/16/19 15:00 88 24 114/49 (70) 96 04/16/19 14:25 87 24 98 T-Piece 5.0 28 86 22 97 04/16/19 14:00 83 21 125/44 (71) 97 Height (Feet): 5 Height (Inches): 3.00 Weight (Pounds): 123 General Appearance: no acute distress HEENT: status post trach Respiratory/Chest: lungs clear, other - on T bar Abdomen: soft, non tender, other - GT feeding Extremities: no edema Skin: ulcers Neurologic/Psychiatric: unresponsiveness Laboratory Tests Test 04/17/19 09:45 White Blood Count 10.4 K/UL (4.8-10.8) Red Blood Count 3.74 M/UL (4.20-5.40) L Hemoglobin 11.0 G/DL (12.0-16.0) L Hematocrit 34.1 % (37.0-47.0) L Mean Corpuscular Volume 91 FL (80-99) Mean Corpuscular Hemoglobin 29.3 PG (27.0-31.0) Mean Corpuscular Hemoglobin Concent 32.1 G/DL (32.0-36.0) Red Cell Distribution Width 15.2 % (11.6-14.8) H Platelet Count 197 K/UL (150-450) Mean Platelet Volume 5.7 FL (6.5-10.1) L Neutrophils (%) (Auto) 63.3 % (45.0-75.0) Lymphocytes (%) (Auto) 28.0 % (20.0-45.0) Monocytes (%) (Auto) 4.0 % (1.0-10.0) Eosinophils (%) (Auto) 4.1 % (0.0-3.0) H Basophils (%) (Auto) 0.6 % (0.0-2.0) Sodium Level 145 MMOL/L (136-145) Potassium Level 4.5 MMOL/L (3.5-5.1) Chloride Level 108 MMOL/L (98-107) H Carbon Dioxide Level 29 MMOL/L (21-32) Anion Gap 8 mmol/L (5-15) Blood Urea Nitrogen 64 mg/dL (7-18) H Creatinine 0.9 MG/DL (0.55-1.30) Estimat Glomerular Filtration Rate mL/min (>60) Glucose Level 135 MG/DL (74-106) H Calcium Level 9.3 MG/DL (8.5-10.1) Magnesium Level 2.5 MG/DL (1.8-2.4) H Total Bilirubin 0.2 MG/DL (0.2-1.0) Aspartate Amino Transf (AST/SGOT) 54 U/L (15-37) H Alanine Aminotransferase (ALT/SGPT) 113 U/L (12-78) H Alkaline Phosphatase 143 U/L (46-116) H Total Protein 8.6 G/DL (6.4-8.2) H Albumin 3.2 G/DL (3.4-5.0) L Globulin 5.4 g/dL Albumin/Globulin Ratio 0.6 (1.0-2.7) L Current Medications Medications (Trade) Dose Ordered Sig/Maicol Route PRN Reason Start Time Stop Time Status Last Admin Dose Admin Acetaminophen (Tylenol) 650 mg Q6H PRN GT Mild Pain/Temp > 100.5 03/23/19 15:15 04/22/19 15:14 04/15/19 22:23 Albuterol/ Ipratropium (Albuterol/ Ipratropium) 3 ml Q4HRT HHN 04/15/19 07:00 04/20/19 06:59 04/17/19 11:14 Atropine Sulfate (Atropine Opth Adriana) 1 drop THREE TIMES A DAY SL 04/08/19 09:00 05/07/19 20:59 04/17/19 13:20 Chlorhexidine Gluconate (Cesilia-Hex 2%) 1 applic DAILY@1999 TOPIC 04/12/19 20:00 05/12/19 19:59 04/16/19 20:15 Folic Acid (Folate) 1 mg DAILY GT 04/08/19 09:00 05/08/19 08:59 04/17/19 09:19 Heparin Sodium (Porcine) (Heparin 5000 units/ml) 5,000 units EVERY 12 HOURS SUBQ 04/01/19 10:00 05/01/19 09:59 04/17/19 09:24 Hydralazine HCl (Apresoline) 25 mg Q6H PRN ORAL SBP above 150 04/06/19 02:45 05/06/19 02:44 04/06/19 11:15 Lansoprazole (Prevacid) 30 mg Q12HR GT 03/29/19 09:00 04/24/19 20:59 04/17/19 09:19 Levetiracetam (Keppra) 750 mg Q12HR GT 04/07/19 21:00 05/07/19 20:59 04/17/19 09:19 Ondansetron HCl (Zofran) 4 mg Q4H PRN IVP Nausea & Vomiting 03/18/19 18:15 04/17/19 18:14 03/21/19 08:27 Sorbitol (Sorbitol) 30 ml BIDPRN PRN ORAL Constipation 04/13/19 11:15 05/13/19 11:14 Sorbitol (sorbitoL) 30 ml DAILY GT 04/14/19 09:00 05/14/19 08:59 04/17/19 09:18 Chauncey Liriano MD Apr 17, 2019 13:30
--- NOTE | 2019-04-17 13:45 | Surgery Progress Note ---
Surgery Progress Note Subjective Additional Comments no acute events comfortable labs reviewed no n/v/f/c Objective Last 24 Hour Vital Signs Date Time Temp Pulse Resp B/P (MAP) Pulse Ox O2 Delivery O2 Flow Rate FiO2 04/17/19 13:16 100 T-Piece 5.0 28 04/17/19 13:00 88 19 114/47 (69) 99 04/17/19 12:00 T-piece 5.0 T-piece 5.0 04/17/19 12:00 98.4 86 24 140/40 (73) 98 04/17/19 12:00 85 04/17/19 12:00 5.0 28 04/17/19 11:14 80 26 100 T-Piece 5.0 28 85 20 99 04/17/19 11:04 85 26 123/38 (66) 99 04/17/19 10:00 86 25 130/43 (72) 97 04/17/19 09:00 85 22 124/39 (67) 99 04/17/19 08:00 98.3 86 24 128/31 (63) 100 04/17/19 08:00 5.0 28 04/17/19 08:00 82 04/17/19 08:00 T-piece 5.0 T-piece 5.0 04/17/19 07:08 100 T-Piece 5.0 28 04/17/19 07:08 78 22 100 T-Piece 5.0 28 82 23 100 04/17/19 07:00 81 22 129/39 (69) 100 04/17/19 06:00 85 22 109/33 (58) 97 04/17/19 05:30 86 24 128/28 (61) 98 04/17/19 05:00 88 23 137/29 (65) 98 04/17/19 04:30 88 28 124/35 (64) 97 04/17/19 04:00 T-piece 5.0 T-piece 5.0 04/17/19 04:00 87 04/17/19 04:00 98.6 86 22 127/34 (65) 100 04/17/19 04:00 5.0 28 04/17/19 03:42 88 24 100 T-Piece 5.0 28 87 25 98 04/17/19 03:30 86 23 126/35 (65) 99 04/17/19 03:00 88 23 128/46 (73) 99 04/17/19 02:00 88 26 135/44 (74) 96 04/17/19 01:14 98 T-Piece 5.0 28 04/17/19 01:00 88 26 121/50 (73) 98 04/17/19 00:00 89 04/17/19 00:00 98.8 85 28 121/46 (71) 98 04/17/19 00:00 5.0 28 04/17/19 00:00 T-piece 5.0 T-piece 5.0 04/16/19 23:54 85 22 99 T-Piece 5.0 28 86 26 96 04/16/19 23:00 86 24 121/46 (71) 97 04/16/19 22:00 86 25 126/50 (75) 97 04/16/19 21:00 89 26 117/55 (75) 96 04/16/19 20:00 T-piece 5.0 T-piece 5.0 04/16/19 20:00 98.8 87 24 130/54 (79) 04/16/19 20:00 5.0 28 04/16/19 20:00 87 04/16/19 19:06 89 24 100 T-Piece 5.0 28 86 27 99 04/16/19 19:06 99 T-Piece 5.0 28 04/16/19 19:00 87 25 132/55 (80) 97 04/16/19 18:00 83 25 114/41 (65) 97 04/16/19 17:00 81 25 120/41 (67) 98 04/16/19 16:00 5.0 28 04/16/19 16:00 85 04/16/19 16:00 T-piece 5.0 T-piece 5.0 04/16/19 16:00 98.3 85 25 107/42 (63) 97 04/16/19 15:00 88 24 114/49 (70) 96 04/16/19 14:25 87 24 98 T-Piece 5.0 28 86 22 97 04/16/19 14:00 83 21 125/44 (71) 97 I&O Intake and Output 04/16/19 04/17/19 19:00 07:00 Intake Total 1170 ml 1410 ml Output Total 700 ml 600 ml Balance 470 ml 810 ml Free Water 225 ml 225 ml Tube Feeding 720 ml 960 ml Other 225 ml 225 ml Output Urine Total 400 ml 400 ml Gastric Drainage Total 300 ml 200 ml Dressing: dry Wound: clean Cardiovascular: RSR Respiratory: clear Abdomen: soft, non-tender, present bowel sounds Extremities: no tenderness, no cyanosis Laboratory Tests Test 04/17/19 09:45 White Blood Count 10.4 K/UL (4.8-10.8) Red Blood Count 3.74 M/UL (4.20-5.40) L Hemoglobin 11.0 G/DL (12.0-16.0) L Hematocrit 34.1 % (37.0-47.0) L Mean Corpuscular Volume 91 FL (80-99) Mean Corpuscular Hemoglobin 29.3 PG (27.0-31.0) Mean Corpuscular Hemoglobin Concent 32.1 G/DL (32.0-36.0) Red Cell Distribution Width 15.2 % (11.6-14.8) H Platelet Count 197 K/UL (150-450) Mean Platelet Volume 5.7 FL (6.5-10.1) L Neutrophils (%) (Auto) 63.3 % (45.0-75.0) Lymphocytes (%) (Auto) 28.0 % (20.0-45.0) Monocytes (%) (Auto) 4.0 % (1.0-10.0) Eosinophils (%) (Auto) 4.1 % (0.0-3.0) H Basophils (%) (Auto) 0.6 % (0.0-2.0) Sodium Level 145 MMOL/L (136-145) Potassium Level 4.5 MMOL/L (3.5-5.1) Chloride Level 108 MMOL/L (98-107) H Carbon Dioxide Level 29 MMOL/L (21-32) Anion Gap 8 mmol/L (5-15) Blood Urea Nitrogen 64 mg/dL (7-18) H Creatinine 0.9 MG/DL (0.55-1.30) Estimat Glomerular Filtration Rate mL/min (>60) Glucose Level 135 MG/DL (74-106) H Calcium Level 9.3 MG/DL (8.5-10.1) Magnesium Level 2.5 MG/DL (1.8-2.4) H Total Bilirubin 0.2 MG/DL (0.2-1.0) Aspartate Amino Transf (AST/SGOT) 54 U/L (15-37) H Alanine Aminotransferase (ALT/SGPT) 113 U/L (12-78) H Alkaline Phosphatase 143 U/L (46-116) H Total Protein 8.6 G/DL (6.4-8.2) H Albumin 3.2 G/DL (3.4-5.0) L Globulin 5.4 g/dL Albumin/Globulin Ratio 0.6 (1.0-2.7) L Plan Problems: (1) Sacral decubitus ulcer Assessment & Plan: This is a 83-year-old female with multiple medical committees that is currently admitted for medical care and management and identified to have multiple wounds requiring care. On admission patient noted to have a resolved sacral decubitus ulcer. Has had prior care and is well-healed at this time. Will ensure it does not open up again. Patient has a right ischial decubitus ulcer that is resolved. Scar intact and well formed. Will monitor to ensure it does not open up again. Patient has a left ischial decubitus ulcer that can be identified to be stage IV with palpable bone that has been resolving as noted by the periwound tissue and scar but open area approximately 1 cm x 1.5 cm few millimeters deep to bone identified. Unsure if this is been to be completely healed prior and has since opened or if has been healing at this level. No foul odor no drainage was unsure local wound care until healed Bilateral heels soft without signs of injury Resolving pressure injury L ischium(L)1.8cm x (W)1cm.Scattered biofilm at base of wound. Edges flat and adherent with surrounding hyperpigmentation. No odor or exudate noted. Sacrum is pale pink with surrounding hyperpigmentation. Hyperpigmentation R ischium with small sheared area centrally.No areas of erythema or exudate noted. Both heels are soft but blanchable. Skin Assessed under collar of trach and no evidence of skin breakdown noted. All wound Tx. are effective and continued as ordered. Pt ahs an APM/Belén mattress overlay and is being repositioned per protocols and per tolerance.No new skin concerns noted. Full thickness pressure injury L Ischium with small amt biofilm (L)1.8cm x (W) 1cm. Surrounding pink hyperpigmentation. No odor or exudate noted. Paia hyperpigmentation from previous wound noted to sacrum. Pt also noted to have Cat 2 Skin Tear dorsal L hand, L 5th metatarsal extending into palm of hand. 80% skin flap in situ.Both heels are dry firm and blanchable. No other skin concerns noted. R ischial wound has resolved. Paia epithelial with surrounding hyperpigmentation. from historical wound. Full thickness pressure injury L ischium. Paia granulation at base of wound. Borders are macerated with Surrounding hyperpigmentation.Small amt non-odorous serous exudate noted.(L)0.7cm x (W)0.8cm. Skin hyperpigmentation from historical wound noted to Sacrum. Small sheared area noted to sacrococcygeal area.(L)0.4cm x (W)0.3cm.Small amt sanguineous exudate noted. Reabsorbed blister with semi-detached dry necrotic cap noted to web space of L thumb and L index fingers extending into palm of L hand. No odor or exudate noted. Skin assessed under tracheal collar and no erythema or evidence of Skin Breakdown noted. NO new skin concerns noted . Good hand hygiene provided to both hands. R hand contracted and fisted. Fingernails trimmed. Wound care provided along with Primary nurse. Wound Tx continued as ordered. New order obtained from to apply Betadine to wound L hand Daily. Tx done as ordered. L hand wrapped with kerlix weaving kerlix between fingers to separate fingers. Moisture Barrier applied to sacrum ,R ischium. Each site covered with Optifoam drsg. Both lower ext washed and moisturized. Cavilon Skin Barrier applied to both heels.Each heel covered with Optifoam drsgs. Pt positioned with pillows and both heels off-loaded with pillow. Pt wounds are resolving. Loose necrotic cap within web space of L index finger and L thumb easily removed with gentle friction. Base of wound is hypergranular with 10% necrosis. Borders are macerated. Application of Silver Nitrate to hypergranular base done. Cavilon Skin Barrier applied to borders . Good hand hygiene provided. Wound covered with Abd pad. L hand wrapped with Kerlix weaving Kerlix between digitsof L hand. Pressure injury L ischium resolving. Base iof wound is pale pink and dry with surrounding hyperpigmentation and scar from previous wound. Hyperpigmentation with historical scars noted to Sacrum and R ischium. Both heels are soft and blanchable. Skin Assessed under trach collar and no evidence of skin breakdown noted. Tx.Plan: Apply Betadine to wound L hand. Cover with Gauze and wrap with Kerlix Daily and prn. Cleanse L ischial wound with Saline. Apply Therahoney. Apply Moisture Barrier periwound. Cover with Optifoam drsgevery 3 days and prn. Apply Moisture Barrier Paste to R ischium and Sacrum. Cover each area with Optifoam drsg. Change every 3 days and prn. Apply Cavilon Skin Barrier to both heels. Cover each heel with Optifoam drsg. Change every 7 days and prn. Cleanse Blister Dorsal and palm of L hand with saline. Versatel One Silicone Contact Layer(Applied). Apply Silvasorb Gel. Wrap with Kerlix Gauze.Change every 7 days and prn. Apply Moisture Barrier to sacrum. Cover with Optifoam drsg. Change every 3 days and prn. APM/BELÉN Mattress overlay. Reposition at least every 2hours or as tolerated. Off-load heels with pillow. Nutritional optimization We will monitor follow with recommendations cont with above upon d/c wounds healing overall improving (2) Sepsis Assessment & Plan: IV abx as per ID trend labs improving wounds unlikely etiology likely respiratory imaging noted and okay abnormal lft's stable PICC on Abx in ICU for desaturation CXR with consolidation cont with frequent suctioning d/c planning g j via GI daughter wants close attention to wounds and management to ensure healing Evidence of left lower lobe pneumonia, also previously demonstrated Gastrostomy in good position Mild diastasis of the rectus abdominis musculature again demonstrated Retrosacral decubitus changes, better depicted on prior exam which included the pelvis Small hiatal hernia with evidence of trace gastroesophageal reflux Discussed with GI. Recommend GJ family still pending decision transfuse prbc prn monitor h/h monitor bm LFTs improving trending down (3) Feeding by G-tube Assessment & Plan: DAILY ESTIMATED NEEDS: Needs based on Pulmonary, wounds, bedbound/ 61kg adj 25-30 kcals/kg 4712-5025 total kcals 1.25-2 g protein/kg 76-122 g total protein 25-30 mL/kg 0097-1686 total fluid mLs NUTRITION DIAGNOSIS: * Increased kcal/prot needs R/T wound healing as evidenced by BL buttocks and sacral wound photos, refer to eval. * Swallowing difficulty R/T respiratory status as evidenced by pt on T-collar, s/p G-J conversion CURRENT TF:Glucerna 1.5 @ 50ml/hr x 24 hrs ENTERAL NUTRITION RECOMMENDATIONS: Glucerna 1.5 @ 50ml/hr x 24 hrs to provide 1200ml, 1800 kcal, 99g pro, 911ml free H2O - Maintain at current rate as tolerated to meet 100% est needs - HOB over 30 degrees - INCREASE water flush of 170ml q 6 hrs ADDITIONAL RECOMMENDATIONS: 1) RE-calibrate bedscale wt: fluctuating daily wts (108#-136# last 6 days) 2) Wound healing: Add Cristian 1pkt BID w/ continued good TF tolerance. 3) Increase water flushes, monitor for signs of water deficits 4) Monitor BGs closely, need for NISS -> now w/ improved BGs 5) Monitor for continued good TF tolerance 6) Monitor K : elev K on 03/25, s/p Kdur BID, now dc'ed. (4) Chronic vegetative state Assessment & Plan: incontinence of urine and stool. can soil dressings. nurses doing great job with monitoring and changing prn (5) Leukocytosis Walter Madera Apr 17, 2019 13:45
--- NOTE | 2019-04-17 13:48 | NUR ---
PRODUCTION SOLDERERASSISTIVE TECHNOLOGY SPECIALIST SI; RESP FAILURE TRACH/COOL AEROSOL T. 98.4 HR 86 RR 26 B/P 140/47 T-PIECE FIO2 28% AST 54 ALT 113 ALK PHOS 143 IS: HEPARIN SUBC ALB INLINE TX KEPPRA PREVACID ICU STATUS
--- NOTE | 2019-04-17 15:00 | NUR ---
NURSE NOTES: Pt stable,no resp distress presented,suctioned PRN.
--- NOTE | 2019-04-17 16:30 | Progress Note ---
DATE: 04/17/2019 CARDIOLOGY PROGRESS NOTE SUBJECTIVE: Status relatively unchanged. She is tolerating nutrition by feeding tube. No signs of bleeding on T-tube with stable cardiac rhythm, sinus. PHYSICAL EXAMINATION: LUNGS: Bilateral breath sounds. CARDIAC: Regular rhythm and rate. Normal S1, S2. ABDOMEN: Soft with GJ-tube intact. EXTREMITIES: No edema. LABORATORY DATA: White count 10, hemoglobin 11. Chemistry panel is pending. IMPRESSION AND PLAN: Overall, remain stable for subacute level of care, she should continue on current cardiovascular regimen. Fine tuning of therapy will depend on results of laboratory studies. Bg Hagen M.D. DR: SHIRA JOB#: [id number] CC:
--- NOTE | 2019-04-17 18:00 | NUR ---
NURSE NOTES: Pt had BM with Large soft brown stools,kept dry and clean,pulled up turned and repositioned.
--- NOTE | 2019-04-17 18:13 | General Progress Note ---
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 - Elevated glucose - elevated BUN/Cr - poor Prognosis Recommendations - daily sorbitol, and PRN sorbitol - Follow BUN/Cr - Cristian BID - antibiotic ointment to GJT site PRN - aspiration precautions - elevate HOB - Vital AF 1.2 - check q 6 hour FS - transfuse to keep Hg > 7 - J tube feeds - G tube drain Subjective Allergies: Coded Allergies: CODEINE (Verified Allergy, Unknown, HIVES, 09/15/09) Subjective above noted tolerating TF via J port d/w RN Objective Last 24 Hour Vital Signs Date Time Temp Pulse Resp B/P (MAP) Pulse Ox O2 Delivery O2 Flow Rate FiO2 04/17/19 17:00 87 26 123/39 (67) 97 04/17/19 16:00 T-piece 5.0 T-piece 5.0 04/17/19 16:00 87 04/17/19 16:00 5.0 28 04/17/19 16:00 97.4 89 24 137/35 (69) 98 04/17/19 15:03 86 20 100 T-Piece 5.0 28 89 22 99 04/17/19 15:00 86 18 134/35 (68) 97 04/17/19 14:00 87 19 128/43 (71) 99 04/17/19 13:16 100 T-Piece 5.0 28 04/17/19 13:00 88 19 114/47 (69) 99 04/17/19 12:00 T-piece 5.0 T-piece 5.0 04/17/19 12:00 98.4 86 24 140/40 (73) 98 04/17/19 12:00 85 04/17/19 12:00 5.0 28 04/17/19 11:14 80 26 100 T-Piece 5.0 28 85 20 99 04/17/19 11:04 85 26 123/38 (66) 99 04/17/19 10:00 86 25 130/43 (72) 97 04/17/19 09:00 85 22 124/39 (67) 99 04/17/19 08:00 98.3 86 24 128/31 (63) 100 04/17/19 08:00 5.0 28 04/17/19 08:00 82 04/17/19 08:00 T-piece 5.0 T-piece 5.0 04/17/19 07:08 100 T-Piece 5.0 28 04/17/19 07:08 78 22 100 T-Piece 5.0 28 82 23 100 04/17/19 07:00 81 22 129/39 (69) 100 04/17/19 06:00 85 22 109/33 (58) 97 04/17/19 05:30 86 24 128/28 (61) 98 04/17/19 05:00 88 23 137/29 (65) 98 04/17/19 04:30 88 28 124/35 (64) 97 04/17/19 04:00 T-piece 5.0 T-piece 5.0 04/17/19 04:00 87 04/17/19 04:00 98.6 86 22 127/34 (65) 100 04/17/19 04:00 5.0 28 04/17/19 03:42 88 24 100 T-Piece 5.0 28 87 25 98 04/17/19 03:30 86 23 126/35 (65) 99 04/17/19 03:00 88 23 128/46 (73) 99 04/17/19 02:00 88 26 135/44 (74) 96 04/17/19 01:14 98 T-Piece 5.0 28 04/17/19 01:00 88 26 121/50 (73) 98 04/17/19 00:00 89 04/17/19 00:00 98.8 85 28 121/46 (71) 98 04/17/19 00:00 5.0 28 04/17/19 00:00 T-piece 5.0 T-piece 5.0 04/16/19 23:54 85 22 99 T-Piece 5.0 28 86 26 96 04/16/19 23:00 86 24 121/46 (71) 97 04/16/19 22:00 86 25 126/50 (75) 97 04/16/19 21:00 89 26 117/55 (75) 96 04/16/19 20:00 T-piece 5.0 T-piece 5.0 04/16/19 20:00 98.8 87 24 130/54 (79) 04/16/19 20:00 5.0 28 04/16/19 20:00 87 04/16/19 19:06 89 24 100 T-Piece 5.0 28 86 27 99 04/16/19 19:06 99 T-Piece 5.0 28 04/16/19 19:00 87 25 132/55 (80) 97 Intake and Output 04/16/19 04/17/19 19:00 07:00 Intake Total 1170 ml 1410 ml Output Total 700 ml 600 ml Balance 470 ml 810 ml Free Water 225 ml 225 ml Tube Feeding 720 ml 960 ml Other 225 ml 225 ml Output Urine Total 400 ml 400 ml Gastric Drainage Total 300 ml 200 ml Laboratory Tests 04/17/19 09:45: White Blood Count 10.4, Red Blood Count 3.74L, Hemoglobin 11.0L, Hematocrit 34.1L, Mean Corpuscular Volume 91, Mean Corpuscular Hemoglobin 29.3, Mean Corpuscular Hemoglobin Concent 32.1, Red Cell Distribution Width 15.2H, Platelet Count 197, Mean Platelet Volume 5.7L, Neutrophils (%) (Auto) 63.3, Lymphocytes (%) (Auto) 28.0, Monocytes (%) (Auto) 4.0, Eosinophils (%) (Auto) 4.1H, Basophils (%) (Auto) 0.6, Sodium Level 145, Potassium Level 4.5, Chloride Level 108H, Carbon Dioxide Level 29, Anion Gap 8, Blood Urea Nitrogen 64H, Creatinine 0.9, Estimat Glomerular Filtration Rate , Glucose Level 135H, Calcium Level 9.3, Magnesium Level 2.5H, Total Bilirubin 0.2, Aspartate Amino Transf (AST/SGOT) 54H, Alanine Aminotransferase (ALT/SGPT) 113H, Alkaline Phosphatase 143H, Total Protein 8.6H, Albumin 3.2L, Globulin 5.4, Albumin/ Globulin Ratio 0.6L Height (Feet): 5 Height (Inches): 3.00 Weight (Pounds): 123 Objective Debilitated AA woman non-verbal, obtunded NCAT (+) trach coarse BS RR obese abd, (+) GJT no edema (+) contractured extremities Celio Vaughan MD Apr 17, 2019 18:12
--- NOTE | 2019-04-17 19:30 | NUR ---
NURSE NOTES: Received patient from Neeta PAEZ. Patient awake with eyes open. no s/s of acute distress noted. Patient arousable to name but does not track or communicate. Patient trach to T piece with 28% FIO2, satting 100%. Patient with moderate secretions. Patient has right upper arm PICC line that is patent. Dressing dry and intact. Patient has gastrostomy/jejunostomy tube that is patent, asymptomatic, and running tube feeding of vital AF at 65mL/hr through the J tube and draining to gravity from the G tube. Patient has bilateral ischium and sacral old/healed/resolved pressure injury with dressing dry and intact, Optifoam dressing on bilateral heel for protection. bilateral heels elevated. Patient on low air loss mattress for wound management. Patient clean and dry. Patient bed in low position with bed alarm on and call light in reach at this time. will continue plan of care.
--- NOTE | 2019-04-17 19:33 | NUR ---
HAND-OFF: Report given to Umm Bang .
[2019-04-17] MEDS: Dyna-Hex 2% Top Sol 2oz TOPIC SCH (20:18)
--- NOTE | 2019-04-17 20:30 | NUR ---
NURSE NOTES: CHG bath given tolerated well. Suctioned and oral care provided. Repositioned in bed will continue plan of care.
--- NOTE | 2019-04-17 21:00 | NUR ---
NURSE NOTES: Daughter at bedside and updated regarding patient condition
--- NOTE | 2019-04-17 23:00 | NUR ---
NURSE NOTES: Patient in bed with eyes open, TV therapy provided. No s/s of acute distress noted. Oral care and suctioned patient. HOB elevated. no s/s of hypo/hyperglycemia. Contact isolation maintained and observed. will continue plan of care.
[2019-04-18] VITALS (31 sets, daily range): BP systolic 94–146; BP diastolic 21–109
[2019-04-18] MEDS: Albuterol/Ipratropium 3ml neb HHN SCH ×6 (02:58→23:23)
--- NOTE | 2019-04-18 03:00 | NUR ---
NURSE NOTES: Bed bath given tolerated well. no s/s of hypo/hyperglycemia. Repositioned for comfort and pillow support provided. Oral care and suctioned patient. No s/s of acute distress noted. will continue to monitor plan of care.
--- NOTE | 2019-04-18 07:30 | NUR ---
HAND-OFF: Report given to Jennifer PAEZ.
--- NOTE | 2019-04-18 08:00 | NUR ---
NURSE NOTES: Received change of shift report from Umm PAEZ. Pt has eyes closed, opens eyes to touch, withdraws to pain. Pt has trach, Shiley 6, XLT connected to Tpiece at 28% FIO2 at 100% O2Sat with bilateral inspiratory and expiratory rhonchi noted on auscultation. NSR on residential monitor, HR 80. Pt has GJ-tube. JT is connected to Vital AF 1.2 at goal rate of 60ml. GT is connected to gravity, with small output of yellow liquid. Pt is tolerating feeding well with no noted residual. Abdomen is large, round, soft, nontender to touch with hypoactive bowel sounds. Left upper arm double lumen PICC is in place, TKO, patent/intact. External urinary catheter is in place, draining clear/yellow urine. Skin has left hand wound, covered with dressing, dry/intact. Pt is on P200 pressure releasing mattress with bilateral heels/elevated, floating/off heels. Will continue with plan of care.
--- NOTE | 2019-04-18 08:07 | General Progress Note ---
Assessment/Plan Problem List: (1) Seizure ICD Codes: R56.9 - Unspecified convulsions SNOMED: 89913609 (2) Anemia ICD Codes: D64.9 - Anemia, unspecified SNOMED: 827182729 Qualifiers: Qualified Codes: D64.9 - Anemia, unspecified (3) Sepsis ICD Codes: A41.9 - Sepsis, unspecified organism SNOMED: 33262588, 761049329 Qualifiers: Qualified Codes: A41.9 - Sepsis, unspecified organism (4) Respiratory failure with hypoxia ICD Codes: J96.91 - Respiratory failure, unspecified with hypoxia SNOMED: 50364144612999721 Qualifiers: Qualified Codes: J96.21 - Acute and chronic respiratory failure with hypoxia (5) HCAP (healthcare-associated pneumonia) ICD Codes: J18.9 - Pneumonia, unspecified organism SNOMED: 303485629, 788061064 (6) Sacral decubitus ulcer ICD Codes: L89.159 - Pressure ulcer of sacral region, unspecified stage SNOMED: 500713057 (7) HTN (hypertension) ICD Codes: I10 - Essential (primary) hypertension SNOMED: 04046860 (8) Chronic vegetative state ICD Codes: R40.3 - Persistent vegetative state SNOMED: 03478833 (9) Chronic respiratory failure ICD Codes: J96.10 - Chronic respiratory failure, unspecified whether with hypoxia or hypercapnia SNOMED: 52895716 (10) Limited mobility ICD Codes: Z74.09 - Other reduced mobility SNOMED: 2726595 Status: stable, progressing Assessment/Plan: vent as needed resp rx suctioning j tube feeds g port to gravity skin care sz rx check labs bowel regime dc planning Subjective ROS Limited/Unobtainable: No Constitutional: Reports: malaise, weakness HEENT: Reports: no symptoms Cardiovascular: Reports: no symptoms Respiratory: Reports: cough, shortness of breath, sputum Gastrointestinal/Abdominal: Reports: difficulty swallowing Genitourinary: Reports: no symptoms Neurologic/Psychiatric: Reports: pre-existing deficit, seizure Endocrine: Reports: no symptoms Hematologic/Lymphatic: Reports: anemia Allergies: Coded Allergies: CODEINE (Verified Allergy, Unknown, HIVES, 09/15/09) All Systems: reviewed and negative except above Subjective no events. no reports of bleeding. tolerating feeds, no vomiting. minimal secretions. no szs Objective Last 24 Hour Vital Signs Date Time Temp Pulse Resp B/P (MAP) Pulse Ox O2 Delivery O2 Flow Rate FiO2 04/18/19 07:30 83 23 111/27 (55) 99 04/18/19 07:04 92 22 100 T-Piece 5.0 28 84 24 99 04/18/19 07:04 100 T-Piece 5.0 28 04/18/19 07:00 82 19 124/34 (64) 100 04/18/19 06:00 81 20 121/37 (65) 100 04/18/19 05:00 83 19 123/31 (61) 100 04/18/19 04:00 5.0 28 04/18/19 04:00 98.0 84 21 126/30 (62) 100 04/18/19 04:00 T-piece 5.0 T-piece 5.0 04/18/19 03:04 84 04/18/19 03:00 85 22 134/50 (78) 100 04/18/19 02:58 87 24 100 T-Piece 5.0 28 84 31 100 04/18/19 02:30 88 26 128/56 (80) 100 04/18/19 02:00 84 24 108/39 (62) 98 04/18/19 01:30 85 25 113/41 (65) 98 04/18/19 01:15 99 T-Piece 5.0 28 04/18/19 01:00 88 23 104/46 (65) 97 04/18/19 00:30 89 24 128/36 (66) 97 04/18/19 00:00 T-piece 5.0 T-piece 5.0 04/18/19 00:00 85 23 111/44 (66) 97 04/17/19 23:48 83 04/17/19 23:30 83 22 109/36 (60) 98 04/17/19 23:03 83 20 100 T-Piece 5.0 28 85 18 99 04/17/19 23:00 84 22 112/48 (69) 98 04/17/19 22:00 83 22 123/43 (69) 99 04/17/19 21:00 84 22 109/48 (68) 98 04/17/19 20:00 83 04/17/19 20:00 86 22 127/49 (75) 99 04/17/19 20:00 5.0 28 04/17/19 20:00 T-piece 5.0 T-piece 5.0 04/17/19 19:00 83 23 125/40 (68) 100 04/17/19 18:53 98 T-Piece 5.0 28 04/17/19 18:53 89 22 100 T-Piece 5.0 28 87 21 98 04/17/19 18:00 86 23 136/54 (81) 100 04/17/19 17:00 87 26 123/39 (67) 97 04/17/19 16:00 T-piece 5.0 T-piece 5.0 04/17/19 16:00 87 04/17/19 16:00 5.0 28 04/17/19 16:00 97.4 89 24 137/35 (69) 98 04/17/19 15:03 86 20 100 T-Piece 5.0 28 89 22 99 04/17/19 15:00 86 18 134/35 (68) 97 04/17/19 14:00 87 19 128/43 (71) 99 04/17/19 13:16 100 T-Piece 5.0 28 04/17/19 13:00 88 19 114/47 (69) 99 04/17/19 12:00 T-piece 5.0 T-piece 5.0 04/17/19 12:00 98.4 86 24 140/40 (73) 98 04/17/19 12:00 85 04/17/19 12:00 5.0 28 04/17/19 11:14 80 26 100 T-Piece 5.0 28 85 20 99 04/17/19 11:04 85 26 123/38 (66) 99 04/17/19 10:00 86 25 130/43 (72) 97 04/17/19 09:00 85 22 124/39 (67) 99 Intake and Output 04/17/19 04/18/19 19:00 07:00 Intake Total 1095 ml 1230 ml Output Total 600 ml 1100 ml Balance 495 ml 130 ml Free Water 225 ml 225 ml Tube Feeding 660 ml 780 ml Other 210 ml 225 ml Output Urine Total 600 ml 600 ml Gastric Drainage Total 500 ml # Bowel Movements 1 Laboratory Tests 04/17/19 09:45: White Blood Count 10.4, Red Blood Count 3.74L, Hemoglobin 11.0L, Hematocrit 34.1L, Mean Corpuscular Volume 91, Mean Corpuscular Hemoglobin 29.3, Mean Corpuscular Hemoglobin Concent 32.1, Red Cell Distribution Width 15.2H, Platelet Count 197, Mean Platelet Volume 5.7L, Neutrophils (%) (Auto) 63.3, Lymphocytes (%) (Auto) 28.0, Monocytes (%) (Auto) 4.0, Eosinophils (%) (Auto) 4.1H, Basophils (%) (Auto) 0.6, Sodium Level 145, Potassium Level 4.5, Chloride Level 108H, Carbon Dioxide Level 29, Anion Gap 8, Blood Urea Nitrogen 64H, Creatinine 0.9, Estimat Glomerular Filtration Rate , Glucose Level 135H, Calcium Level 9.3, Magnesium Level 2.5H, Total Bilirubin 0.2, Aspartate Amino Transf (AST/SGOT) 54H, Alanine Aminotransferase (ALT/SGPT) 113H, Alkaline Phosphatase 143H, Total Protein 8.6H, Albumin 3.2L, Globulin 5.4, Albumin/ Globulin Ratio 0.6L Height (Feet): 5 Height (Inches): 3.00 Weight (Pounds): 123 Objective General Appearance: WD/WN, confused. on trach collar Neck: supple Cardiovascular: normal rate, regular rhythm Respiratory/Chest: chest wall non-tender, rhonchi - bilaterally(minimal) Abdomen: normal bowel sounds, non tender, soft, no organomegaly Edema: no edema noted Arm (L), no edema noted Arm (R), no edema noted Leg (L), no edema noted Leg (R), no edema noted Pedal (L), no edema noted Pedal (R), no edema noted Generalized Neurologic: disoriented, unresponsive, aphasia Irvin Beltrán MD Apr 18, 2019 08:07
--- NOTE | 2019-04-18 09:07 | Pulmonology Progress Note ---
Assessment/Plan Assessment/Plan Impression: history of Sepsis history of Pneumonia Trach, G tube, Hypertension, Cardiac disease, Dementia, Previous CVA, Seizure disorder, Respiratory failure with hypoxia Anemia, Sacral ulcer renal cyst chronic pulmonary congestion Plan monitor for change in resp status off vent needs suctioning oxygen low flow aspiration precautions to continue elevate head and monitor secretions DNR. No CPR. ICU care reviewed meds noted off load as able nutrition monitor residual and reflux aspiration all changes noted and discussed chronic management reviewed medications/laboratory data/nursing notes/ICU care reviewed in detail note reviewed and edited care discussed with RN and RT Subjective ROS Limited/Unobtainable: Yes Allergies: Coded Allergies: CODEINE (Verified Allergy, Unknown, HIVES, 09/15/09) Subjective overnight events noted; respiratory status reviewed concerns reviewed bed bound and obtunded ICU care issues discussed bed bound and obtunded meds reviewed Objective Last 24 Hour Vital Signs Date Time Temp Pulse Resp B/P (MAP) Pulse Ox O2 Delivery O2 Flow Rate FiO2 04/18/19 07:30 83 23 111/27 (55) 99 04/18/19 07:04 92 22 100 T-Piece 5.0 28 84 24 99 04/18/19 07:04 100 T-Piece 5.0 28 04/18/19 07:00 82 19 124/34 (64) 100 04/18/19 06:00 81 20 121/37 (65) 100 04/18/19 05:00 83 19 123/31 (61) 100 04/18/19 04:00 5.0 28 04/18/19 04:00 98.0 84 21 126/30 (62) 100 04/18/19 04:00 T-piece 5.0 T-piece 5.0 04/18/19 03:04 84 04/18/19 03:00 85 22 134/50 (78) 100 04/18/19 02:58 87 24 100 T-Piece 5.0 28 84 31 100 04/18/19 02:30 88 26 128/56 (80) 100 04/18/19 02:00 84 24 108/39 (62) 98 04/18/19 01:30 85 25 113/41 (65) 98 04/18/19 01:15 99 T-Piece 5.0 28 04/18/19 01:00 88 23 104/46 (65) 97 04/18/19 00:30 89 24 128/36 (66) 97 04/18/19 00:00 T-piece 5.0 T-piece 5.0 04/18/19 00:00 85 23 111/44 (66) 97 04/17/19 23:48 83 04/17/19 23:30 83 22 109/36 (60) 98 04/17/19 23:03 83 20 100 T-Piece 5.0 28 85 18 99 04/17/19 23:00 84 22 112/48 (69) 98 04/17/19 22:00 83 22 123/43 (69) 99 04/17/19 21:00 84 22 109/48 (68) 98 04/17/19 20:00 83 04/17/19 20:00 86 22 127/49 (75) 99 04/17/19 20:00 5.0 28 04/17/19 20:00 T-piece 5.0 T-piece 5.0 04/17/19 19:00 83 23 125/40 (68) 100 04/17/19 18:53 98 T-Piece 5.0 28 04/17/19 18:53 89 22 100 T-Piece 5.0 28 87 21 98 04/17/19 18:00 86 23 136/54 (81) 100 04/17/19 17:00 87 26 123/39 (67) 97 04/17/19 16:00 T-piece 5.0 T-piece 5.0 04/17/19 16:00 87 04/17/19 16:00 5.0 28 04/17/19 16:00 97.4 89 24 137/35 (69) 98 04/17/19 15:03 86 20 100 T-Piece 5.0 28 89 22 99 04/17/19 15:00 86 18 134/35 (68) 97 04/17/19 14:00 87 19 128/43 (71) 99 04/17/19 13:16 100 T-Piece 5.0 28 04/17/19 13:00 88 19 114/47 (69) 99 04/17/19 12:00 T-piece 5.0 T-piece 5.0 04/17/19 12:00 98.4 86 24 140/40 (73) 98 04/17/19 12:00 85 04/17/19 12:00 5.0 28 04/17/19 11:14 80 26 100 T-Piece 5.0 28 85 20 99 04/17/19 11:04 85 26 123/38 (66) 99 04/17/19 10:00 86 25 130/43 (72) 97 Intake and Output 04/17/19 04/18/19 19:00 07:00 Intake Total 1095 ml 1230 ml Output Total 600 ml 1100 ml Balance 495 ml 130 ml Free Water 225 ml 225 ml Tube Feeding 660 ml 780 ml Other 210 ml 225 ml Output Urine Total 600 ml 600 ml Gastric Drainage Total 500 ml # Bowel Movements 1 Objective WDWN NAD contracted off vent reduced breath sounds bilaterally without rhonchi or wheeze [id number] without MRG NABS nontender no HSM no CC trace edema same nonfocal nonverbal trach and gt reviewed and edited Laboratory Tests 04/17/19 09:45: White Blood Count 10.4, Red Blood Count 3.74L, Hemoglobin 11.0L, Hematocrit 34.1L, Mean Corpuscular Volume 91, Mean Corpuscular Hemoglobin 29.3, Mean Corpuscular Hemoglobin Concent 32.1, Red Cell Distribution Width 15.2H, Platelet Count 197, Mean Platelet Volume 5.7L, Neutrophils (%) (Auto) 63.3, Lymphocytes (%) (Auto) 28.0, Monocytes (%) (Auto) 4.0, Eosinophils (%) (Auto) 4.1H, Basophils (%) (Auto) 0.6, Sodium Level 145, Potassium Level 4.5, Chloride Level 108H, Carbon Dioxide Level 29, Anion Gap 8, Blood Urea Nitrogen 64H, Creatinine 0.9, Estimat Glomerular Filtration Rate , Glucose Level 135H, Calcium Level 9.3, Magnesium Level 2.5H, Total Bilirubin 0.2, Aspartate Amino Transf (AST/SGOT) 54H, Alanine Aminotransferase (ALT/SGPT) 113H, Alkaline Phosphatase 143H, Total Protein 8.6H, Albumin 3.2L, Globulin 5.4, Albumin/ Globulin Ratio 0.6L Current Medications Medications (Trade) Dose Ordered Sig/Maicol Route PRN Reason Start Time Stop Time Status Last Admin Dose Admin Acetaminophen (Tylenol) 650 mg Q6H PRN GT Mild Pain/Temp > 100.5 03/23/19 15:15 04/22/19 15:14 04/15/19 22:23 Albuterol/ Ipratropium (Albuterol/ Ipratropium) 3 ml Q4HRT HHN 04/15/19 07:00 04/20/19 06:59 04/18/19 07:04 Atropine Sulfate (Atropine Opth Adriana) 1 drop THREE TIMES A DAY SL 04/08/19 09:00 05/07/19 20:59 04/17/19 17:56 Chlorhexidine Gluconate (Cesilia-Hex 2%) 1 applic DAILY@1999 TOPIC 04/12/19 20:00 05/12/19 19:59 04/17/19 20:18 Folic Acid (Folate) 1 mg DAILY GT 04/08/19 09:00 05/08/19 08:59 04/17/19 09:19 Heparin Sodium (Porcine) (Heparin 5000 units/ml) 5,000 units EVERY 12 HOURS SUBQ 04/01/19 10:00 05/01/19 09:59 04/17/19 20:20 Hydralazine HCl (Apresoline) 25 mg Q6H PRN ORAL SBP above 150 04/06/19 02:45 05/06/19 02:44 04/06/19 11:15 Lansoprazole (Prevacid) 30 mg Q12HR GT 03/29/19 09:00 04/24/19 20:59 04/17/19 20:19 Levetiracetam (Keppra) 750 mg Q12HR GT 04/07/19 21:00 05/07/19 20:59 04/17/19 20:19 Sorbitol (Sorbitol) 30 ml BIDPRN PRN ORAL Constipation 04/13/19 11:15 05/13/19 11:14 Sorbitol (sorbitoL) 30 ml DAILY GT 04/14/19 09:00 05/14/19 08:59 04/17/19 09:18 Amaury Chan MD Apr 18, 2019 09:07
[2019-04-18] MEDS: Sorbitol Solution UD 30ml GT SCH (09:56)
[2019-04-18] MEDS: Heparin 5000 units/ml inj SUBQ SCH ×2 (09:58→20:15)
--- NOTE | 2019-04-18 09:59 | Infectious Diseases Prog Note ---
Assessment/Plan Assessment/Plan A 1. Providencia & Klebsiella pneumonia treated 2. respiratory failure 3. hypertension 4. CVA 5. dementia 6. sacral decubitus ulcer 7. rectal VRE colonization 8. Anemia 9. Proteus UTI 10. Acute renal failure 11. Leukocytosis resolved P 1.Observe off antibiotic 2. Frequent suctioning 3. Remove PICC line before discharge Subjective ROS Limited/Unobtainable: Yes Constitutional: Denies: fever Allergies: Coded Allergies: CODEINE (Verified Allergy, Unknown, HIVES, 09/15/09) Objective Vital Signs Last 24 Hour Vital Signs Date Time Temp Pulse Resp B/P (MAP) Pulse Ox O2 Delivery O2 Flow Rate FiO2 04/18/19 07:30 83 23 111/27 (55) 99 04/18/19 07:04 92 22 100 T-Piece 5.0 28 84 24 99 04/18/19 07:04 100 T-Piece 5.0 28 04/18/19 07:00 82 19 124/34 (64) 100 04/18/19 06:00 81 20 121/37 (65) 100 04/18/19 05:00 83 19 123/31 (61) 100 04/18/19 04:00 5.0 28 04/18/19 04:00 98.0 84 21 126/30 (62) 100 04/18/19 04:00 T-piece 5.0 T-piece 5.0 04/18/19 03:04 84 04/18/19 03:00 85 22 134/50 (78) 100 04/18/19 02:58 87 24 100 T-Piece 5.0 28 84 31 100 04/18/19 02:30 88 26 128/56 (80) 100 04/18/19 02:00 84 24 108/39 (62) 98 04/18/19 01:30 85 25 113/41 (65) 98 04/18/19 01:15 99 T-Piece 5.0 28 04/18/19 01:00 88 23 104/46 (65) 97 04/18/19 00:30 89 24 128/36 (66) 97 04/18/19 00:00 T-piece 5.0 T-piece 5.0 04/18/19 00:00 85 23 111/44 (66) 97 04/17/19 23:48 83 04/17/19 23:30 83 22 109/36 (60) 98 04/17/19 23:03 83 20 100 T-Piece 5.0 28 85 18 99 04/17/19 23:00 84 22 112/48 (69) 98 04/17/19 22:00 83 22 123/43 (69) 99 04/17/19 21:00 84 22 109/48 (68) 98 04/17/19 20:00 83 04/17/19 20:00 86 22 127/49 (75) 99 04/17/19 20:00 5.0 28 04/17/19 20:00 T-piece 5.0 T-piece 5.0 04/17/19 19:00 83 23 125/40 (68) 100 04/17/19 18:53 98 T-Piece 5.0 28 04/17/19 18:53 89 22 100 T-Piece 5.0 28 87 21 98 04/17/19 18:00 86 23 136/54 (81) 100 04/17/19 17:00 87 26 123/39 (67) 97 04/17/19 16:00 T-piece 5.0 T-piece 5.0 04/17/19 16:00 87 04/17/19 16:00 5.0 28 04/17/19 16:00 97.4 89 24 137/35 (69) 98 04/17/19 15:03 86 20 100 T-Piece 5.0 28 89 22 99 04/17/19 15:00 86 18 134/35 (68) 97 04/17/19 14:00 87 19 128/43 (71) 99 04/17/19 13:16 100 T-Piece 5.0 28 04/17/19 13:00 88 19 114/47 (69) 99 04/17/19 12:00 T-piece 5.0 T-piece 5.0 04/17/19 12:00 98.4 86 24 140/40 (73) 98 04/17/19 12:00 85 04/17/19 12:00 5.0 28 04/17/19 11:14 80 26 100 T-Piece 5.0 28 85 20 99 04/17/19 11:04 85 26 123/38 (66) 99 04/17/19 10:00 86 25 130/43 (72) 97 Height (Feet): 5 Height (Inches): 3.00 Weight (Pounds): 123 HEENT: status post trach Respiratory/Chest: other - few rhonchi, on T bar Cardiovascular: normal rate, other - PICC line Abdomen: soft, non tender, other - GT feeding Extremities: no edema Neurologic/Psychiatric: aphasia Current Medications Medications (Trade) Dose Ordered Sig/Maicol Route PRN Reason Start Time Stop Time Status Last Admin Dose Admin Acetaminophen (Tylenol) 650 mg Q6H PRN GT Mild Pain/Temp > 100.5 03/23/19 15:15 04/22/19 15:14 04/15/19 22:23 Albuterol/ Ipratropium (Albuterol/ Ipratropium) 3 ml Q4HRT HHN 04/15/19 07:00 04/20/19 06:59 04/18/19 07:04 Atropine Sulfate (Atropine Opth Adriana) 1 drop THREE TIMES A DAY SL 04/08/19 09:00 05/07/19 20:59 04/17/19 17:56 Chlorhexidine Gluconate (Cesilia-Hex 2%) 1 applic DAILY@1999 TOPIC 04/12/19 20:00 05/12/19 19:59 04/17/19 20:18 Folic Acid (Folate) 1 mg DAILY GT 04/08/19 09:00 05/08/19 08:59 04/18/19 09:55 Heparin Sodium (Porcine) (Heparin 5000 units/ml) 5,000 units EVERY 12 HOURS SUBQ 04/01/19 10:00 05/01/19 09:59 04/17/19 20:20 Hydralazine HCl (Apresoline) 25 mg Q6H PRN ORAL SBP above 150 04/06/19 02:45 05/06/19 02:44 04/06/19 11:15 Lansoprazole (Prevacid) 30 mg Q12HR GT 03/29/19 09:00 04/24/19 20:59 04/18/19 09:56 Levetiracetam (Keppra) 750 mg Q12HR GT 04/07/19 21:00 05/07/19 20:59 04/18/19 09:55 Sorbitol (Sorbitol) 30 ml BIDPRN PRN ORAL Constipation 04/13/19 11:15 05/13/19 11:14 Sorbitol (sorbitoL) 30 ml DAILY GT 04/14/19 09:00 05/14/19 08:59 04/18/19 09:56 Chauncey Liriano MD Apr 18, 2019 09:59
--- NOTE | 2019-04-18 10:00 | NUR ---
NURSE NOTES: AM meds were administered. Pt was suctioned, with output of large amount of white secretions. Pt was repositioned. VS remain stable. No signs/symptoms of distress noted.
--- NOTE | 2019-04-18 10:54 | Nephrology Progress Note ---
Assessment/Plan Problem List: (1) Acute renal failure (ARF) Assessment: Cr stable (2) Chronic respiratory failure (3) Anemia (4) Sepsis Assessment Acute renal failure Respiratory failure - Trach Low Mag- Low k , Low Na Anemia UTI / Sepsis Proteinuria / HypoAlbuminemia high Trigs Sz decubs bed bound DNR Plan Transfused previously now has JT bolus Albumin as needed K and Mag and Phos supplement as needed Hydrate as needed Urine studies avoid Nephrotoxics mag K Phos supplements as needed monitor renal parameters Subjective ROS Limited/Unobtainable: Yes Objective Objective Last 24 Hour Vital Signs Date Time Temp Pulse Resp B/P (MAP) Pulse Ox O2 Delivery O2 Flow Rate FiO2 04/18/19 10:00 76 20 104/27 (52) 100 04/18/19 09:00 79 20 114/29 (57) 100 04/18/19 08:00 T-piece 5.0 T-piece 5.0 04/18/19 08:00 97.9 82 22 114/29 (57) 100 04/18/19 08:00 5.0 28 04/18/19 07:30 83 23 111/27 (55) 99 04/18/19 07:04 92 22 100 T-Piece 5.0 28 84 24 99 04/18/19 07:04 100 T-Piece 5.0 28 04/18/19 07:00 82 19 124/34 (64) 100 04/18/19 06:00 81 20 121/37 (65) 100 04/18/19 05:00 83 19 123/31 (61) 100 04/18/19 04:00 5.0 28 04/18/19 04:00 98.0 84 21 126/30 (62) 100 04/18/19 04:00 T-piece 5.0 T-piece 5.0 04/18/19 03:04 84 04/18/19 03:00 85 22 134/50 (78) 100 04/18/19 02:58 87 24 100 T-Piece 5.0 28 84 31 100 04/18/19 02:30 88 26 128/56 (80) 100 04/18/19 02:00 84 24 108/39 (62) 98 04/18/19 01:30 85 25 113/41 (65) 98 04/18/19 01:15 99 T-Piece 5.0 28 04/18/19 01:00 88 23 104/46 (65) 97 04/18/19 00:30 89 24 128/36 (66) 97 04/18/19 00:00 T-piece 5.0 T-piece 5.0 04/18/19 00:00 85 23 111/44 (66) 97 04/17/19 23:48 83 04/17/19 23:30 83 22 109/36 (60) 98 04/17/19 23:03 83 20 100 T-Piece 5.0 28 85 18 99 04/17/19 23:00 84 22 112/48 (69) 98 04/17/19 22:00 83 22 123/43 (69) 99 04/17/19 21:00 84 22 109/48 (68) 98 04/17/19 20:00 83 04/17/19 20:00 86 22 127/49 (75) 99 04/17/19 20:00 5.0 28 04/17/19 20:00 T-piece 5.0 T-piece 5.0 04/17/19 19:00 83 23 125/40 (68) 100 04/17/19 18:53 98 T-Piece 5.0 28 04/17/19 18:53 89 22 100 T-Piece 5.0 28 87 21 98 04/17/19 18:00 86 23 136/54 (81) 100 04/17/19 17:00 87 26 123/39 (67) 97 04/17/19 16:00 T-piece 5.0 T-piece 5.0 04/17/19 16:00 87 04/17/19 16:00 5.0 28 04/17/19 16:00 97.4 89 24 137/35 (69) 98 04/17/19 15:03 86 20 100 T-Piece 5.0 28 89 22 99 04/17/19 15:00 86 18 134/35 (68) 97 04/17/19 14:00 87 19 128/43 (71) 99 04/17/19 13:16 100 T-Piece 5.0 28 04/17/19 13:00 88 19 114/47 (69) 99 04/17/19 12:00 T-piece 5.0 T-piece 5.0 04/17/19 12:00 98.4 86 24 140/40 (73) 98 04/17/19 12:00 85 04/17/19 12:00 5.0 28 04/17/19 11:14 80 26 100 T-Piece 5.0 28 85 20 99 04/17/19 11:04 85 26 123/38 (66) 99 Intake and Output 04/17/19 04/18/19 18:59 06:59 Intake Total 1155 ml 1170 ml Output Total 600 ml 1100 ml Balance 555 ml 70 ml Free Water 225 ml 225 ml Tube Feeding 720 ml 720 ml Other 210 ml 225 ml Output Urine Total 600 ml 600 ml Gastric Drainage Total 500 ml # Bowel Movements 1 Height (Feet): 5 Height (Inches): 3.00 Weight (Pounds): 123 General Appearance: no apparent distress EENT: other - trach Cardiovascular: normal rate Respiratory/Chest: decreased breath sounds Abdomen: distended Objective no change Eric Cortez MD Apr 18, 2019 10:53
--- NOTE | 2019-04-18 11:57 | Surgery Progress Note ---
Surgery Progress Note Subjective Additional Comments no acute events exam stable Objective Last 24 Hour Vital Signs Date Time Temp Pulse Resp B/P (MAP) Pulse Ox O2 Delivery O2 Flow Rate FiO2 04/18/19 11:10 87 20 100 T-Piece 5.0 28 88 24 99 04/18/19 11:00 84 23 116/29 (58) 99 04/18/19 10:00 76 20 104/27 (52) 100 04/18/19 09:00 79 20 114/29 (57) 100 04/18/19 08:00 T-piece 5.0 T-piece 5.0 04/18/19 08:00 97.9 82 22 114/29 (57) 100 04/18/19 08:00 80 04/18/19 08:00 5.0 28 04/18/19 07:30 83 23 111/27 (55) 99 04/18/19 07:04 92 22 100 T-Piece 5.0 28 84 24 99 04/18/19 07:04 100 T-Piece 5.0 28 04/18/19 07:00 82 19 124/34 (64) 100 04/18/19 06:00 81 20 121/37 (65) 100 04/18/19 05:00 83 19 123/31 (61) 100 04/18/19 04:00 5.0 28 04/18/19 04:00 98.0 84 21 126/30 (62) 100 04/18/19 04:00 T-piece 5.0 T-piece 5.0 04/18/19 03:04 84 04/18/19 03:00 85 22 134/50 (78) 100 04/18/19 02:58 87 24 100 T-Piece 5.0 28 84 31 100 04/18/19 02:30 88 26 128/56 (80) 100 04/18/19 02:00 84 24 108/39 (62) 98 04/18/19 01:30 85 25 113/41 (65) 98 04/18/19 01:15 99 T-Piece 5.0 28 04/18/19 01:00 88 23 104/46 (65) 97 04/18/19 00:30 89 24 128/36 (66) 97 04/18/19 00:00 T-piece 5.0 T-piece 5.0 04/18/19 00:00 85 23 111/44 (66) 97 04/17/19 23:48 83 04/17/19 23:30 83 22 109/36 (60) 98 04/17/19 23:03 83 20 100 T-Piece 5.0 28 85 18 99 04/17/19 23:00 84 22 112/48 (69) 98 04/17/19 22:00 83 22 123/43 (69) 99 04/17/19 21:00 84 22 109/48 (68) 98 04/17/19 20:00 83 04/17/19 20:00 86 22 127/49 (75) 99 04/17/19 20:00 5.0 28 04/17/19 20:00 T-piece 5.0 T-piece 5.0 04/17/19 19:00 83 23 125/40 (68) 100 04/17/19 18:53 98 T-Piece 5.0 28 04/17/19 18:53 89 22 100 T-Piece 5.0 28 87 21 98 04/17/19 18:00 86 23 136/54 (81) 100 04/17/19 17:00 87 26 123/39 (67) 97 04/17/19 16:00 T-piece 5.0 T-piece 5.0 04/17/19 16:00 87 04/17/19 16:00 5.0 28 04/17/19 16:00 97.4 89 24 137/35 (69) 98 04/17/19 15:03 86 20 100 T-Piece 5.0 28 89 22 99 04/17/19 15:00 86 18 134/35 (68) 97 04/17/19 14:00 87 19 128/43 (71) 99 04/17/19 13:16 100 T-Piece 5.0 28 04/17/19 13:00 88 19 114/47 (69) 99 04/17/19 12:00 T-piece 5.0 T-piece 5.0 04/17/19 12:00 98.4 86 24 140/40 (73) 98 04/17/19 12:00 85 04/17/19 12:00 5.0 28 I&O Intake and Output 04/17/19 04/18/19 19:00 07:00 Intake Total 1095 ml 1230 ml Output Total 600 ml 1100 ml Balance 495 ml 130 ml Free Water 225 ml 225 ml Tube Feeding 660 ml 780 ml Other 210 ml 225 ml Output Urine Total 600 ml 600 ml Gastric Drainage Total 500 ml # Bowel Movements 1 Dressing: other Wound: other Drains: other Cardiovascular: RSR Respiratory: decreased breath sounds Abdomen: soft, present bowel sounds Extremities: no cyanosis Plan Problems: (1) Sacral decubitus ulcer Assessment & Plan: This is a 83-year-old female with multiple medical committees that is currently admitted for medical care and management and identified to have multiple wounds requiring care. On admission patient noted to have a resolved sacral decubitus ulcer. Has had prior care and is well-healed at this time. Will ensure it does not open up again. Patient has a right ischial decubitus ulcer that is resolved. Scar intact and well formed. Will monitor to ensure it does not open up again. Patient has a left ischial decubitus ulcer that can be identified to be stage IV with palpable bone that has been resolving as noted by the periwound tissue and scar but open area approximately 1 cm x 1.5 cm few millimeters deep to bone identified. Unsure if this is been to be completely healed prior and has since opened or if has been healing at this level. No foul odor no drainage was unsure local wound care until healed Bilateral heels soft without signs of injury Resolving pressure injury L ischium(L)1.8cm x (W)1cm.Scattered biofilm at base of wound. Edges flat and adherent with surrounding hyperpigmentation. No odor or exudate noted. Sacrum is pale pink with surrounding hyperpigmentation. Hyperpigmentation R ischium with small sheared area centrally.No areas of erythema or exudate noted. Both heels are soft but blanchable. Skin Assessed under collar of trach and no evidence of skin breakdown noted. All wound Tx. are effective and continued as ordered. Pt ahs an APM/Belén mattress overlay and is being repositioned per protocols and per tolerance.No new skin concerns noted. Full thickness pressure injury L Ischium with small amt biofilm (L)1.8cm x (W) 1cm. Surrounding pink hyperpigmentation. No odor or exudate noted. [place] hyperpigmentation from previous wound noted to sacrum. Pt also noted to have Cat 2 Skin Tear dorsal L hand, L 5th metatarsal extending into palm of hand. 80% skin flap in situ.Both heels are dry firm and blanchable. No other skin concerns noted. R ischial wound has resolved. [place] epithelial with surrounding hyperpigmentation. from historical wound. Full thickness pressure injury L ischium. [place] granulation at base of wound. Borders are macerated with Surrounding hyperpigmentation.Small amt non-odorous serous exudate noted.(L)0.7cm x (W)0.8cm. Skin hyperpigmentation from historical wound noted to Sacrum. Small sheared area noted to sacrococcygeal area.(L)0.4cm x (W)0.3cm.Small amt sanguineous exudate noted. Reabsorbed blister with semi-detached dry necrotic cap noted to web space of L thumb and L index fingers extending into palm of L hand. No odor or exudate noted. Skin assessed under tracheal collar and no erythema or evidence of Skin Breakdown noted. NO new skin concerns noted . Good hand hygiene provided to both hands. R hand contracted and fisted. Fingernails trimmed. Wound care provided along with Primary nurse. Wound Tx continued as ordered. New order obtained from to apply Betadine to wound L hand Daily. Tx done as ordered. L hand wrapped with kerlix weaving kerlix between fingers to separate fingers. Moisture Barrier applied to sacrum ,R ischium. Each site covered with Optifoam drsg. Both lower ext washed and moisturized. Cavilon Skin Barrier applied to both heels.Each heel covered with Optifoam drsgs. Pt positioned with pillows and both heels off-loaded with pillow. Pt wounds are resolving. Loose necrotic cap within web space of L index finger and L thumb easily removed with gentle friction. Base of wound is hypergranular with 10% necrosis. Borders are macerated. Application of Silver Nitrate to hypergranular base done. Cavilon Skin Barrier applied to borders . Good hand hygiene provided. Wound covered with Abd pad. L hand wrapped with Kerlix weaving Kerlix between digitsof L hand. Pressure injury L ischium resolving. Base iof wound is pale pink and dry with surrounding hyperpigmentation and scar from previous wound. Hyperpigmentation with historical scars noted to Sacrum and R ischium. Both heels are soft and blanchable. Skin Assessed under trach collar and no evidence of skin breakdown noted. Tx.Plan: Apply Betadine to wound L hand. Cover with Gauze and wrap with Kerlix Daily and prn. Cleanse L ischial wound with Saline. Apply Therahoney. Apply Moisture Barrier periwound. Cover with Optifoam drsgevery 3 days and prn. Apply Moisture Barrier Paste to R ischium and Sacrum. Cover each area with Optifoam drsg. Change every 3 days and prn. Apply Cavilon Skin Barrier to both heels. Cover each heel with Optifoam drsg. Change every 7 days and prn. Cleanse Blister Dorsal and palm of L hand with saline. Versatel One Silicone Contact Layer(Applied). Apply Silvasorb Gel. Wrap with Kerlix Gauze.Change every 7 days and prn. Apply Moisture Barrier to sacrum. Cover with Optifoam drsg. Change every 3 days and prn. APM/BELÉN Mattress overlay. Reposition at least every 2hours or as tolerated. Off-load heels with pillow. Nutritional optimization We will monitor follow with recommendations cont with above upon d/c wounds healing overall improving (2) Sepsis Assessment & Plan: IV abx as per ID trend labs improving wounds unlikely etiology likely respiratory imaging noted and okay abnormal lft's stable PICC on Abx in ICU for desaturation CXR with consolidation cont with frequent suctioning d/c planning g j via GI daughter wants close attention to wounds and management to ensure healing Evidence of left lower lobe pneumonia, also previously demonstrated Gastrostomy in good position Mild diastasis of the rectus abdominis musculature again demonstrated Retrosacral decubitus changes, better depicted on prior exam which included the pelvis Small hiatal hernia with evidence of trace gastroesophageal reflux Discussed with GI. Recommend GJ family still pending decision transfuse prbc prn monitor h/h monitor bm LFTs improving trending down (3) Feeding by G-tube Assessment & Plan: DAILY ESTIMATED NEEDS: Needs based on Pulmonary, wounds, bedbound/ 61kg adj 25-30 kcals/kg [id number] total kcals 1.25-2 g protein/kg 76-122 g total protein 25-30 mL/kg 7441-1494 total fluid mLs NUTRITION DIAGNOSIS: * Increased kcal/prot needs R/T wound healing as evidenced by BL buttocks and sacral wound photos, refer to eval. * Swallowing difficulty R/T respiratory status as evidenced by pt on T-collar, s/p G-J conversion CURRENT TF:Glucerna 1.5 @ 50ml/hr x 24 hrs ENTERAL NUTRITION RECOMMENDATIONS: Glucerna 1.5 @ 50ml/hr x 24 hrs to provide 1200ml, 1800 kcal, 99g pro, 911ml free H2O - Maintain at current rate as tolerated to meet 100% est needs - HOB over 30 degrees - INCREASE water flush of 170ml q 6 hrs ADDITIONAL RECOMMENDATIONS: 1) RE-calibrate bedscale wt: fluctuating daily wts (108#-136# last 6 days) 2) Wound healing: Add Cristian 1pkt BID w/ continued good TF tolerance. 3) Increase water flushes, monitor for signs of water deficits 4) Monitor BGs closely, need for NISS -> now w/ improved BGs 5) Monitor for continued good TF tolerance 6) Monitor K : elev K on 03/25, s/p Kdur BID, now dc'ed. (4) Chronic vegetative state Assessment & Plan: incontinence of urine and stool. can soil dressings. nurses doing great job with monitoring and changing prn (5) Leukocytosis Walter Madera Apr 18, 2019 11:57
--- NOTE | 2019-04-18 12:00 | NUR ---
NURSE NOTES: Pt was orally suctioned, output of moderate amount of white liquid secretions. Pt was repositioned. VS remain stable.
--- NOTE | 2019-04-18 14:00 | NUR ---
NURSE NOTES: Pt was suctioned and repositioned. Pt is tolerating tube feeding with no noted residual. Pt remains with stable VS and no signs/symptoms of any distress present.
--- NOTE | 2019-04-18 16:00 | NUR ---
NURSE NOTES: Pt was cleaned and repositioned. Wound photos were taken, wound care was done and dressings were changed. Gown/bed linens were changed. Pt was repositioned. VS remain stable.
--- NOTE | 2019-04-18 17:16 | General Progress Note ---
Assessment/Plan Status: stable, progressing Assessment/Plan: Assessment - N/V - resolved with G --> J conversion - constipation - partly due to low residue formula used, good response to sorbitol - Elevated Alk phos / LFT - CT negative - abd U/S negative - check hepatitis serologies - negative - possibly MURRAY / Fatty liver - will periodically monitor - Anemia with OB (-) stools - Resp failure, s/p Trach - dysphagia, s/p PEG --> GJ tube - OBS, vegetative obtunded unresponsive state, bedbound with contracted extremities, - h/o minor GJ tube site irritation - Early J port occlusion, possibly due to thick diabetic TF formula - Elevated glucose - elevated BUN/Cr - poor Prognosis Recommendations - daily sorbitol, and PRN sorbitol - Follow BUN/Cr - Cristian BID - antibiotic ointment to GJT site PRN - aspiration precautions - elevate HOB - Vital AF 1.2 - check q 6 hour FS - transfuse to keep Hg > 7 - J tube feeds - G tube drain Subjective Allergies: Coded Allergies: CODEINE (Verified Allergy, Unknown, HIVES, 09/15/09) Subjective above noted tolerating TF via J port d/w RN (+) BM Objective Last 24 Hour Vital Signs Date Time Temp Pulse Resp B/P (MAP) Pulse Ox O2 Delivery O2 Flow Rate FiO2 04/18/19 15:42 85 22 100 T-Piece 5.0 28 80 18 98 04/18/19 14:00 84 21 123/53 (76) 100 04/18/19 13:00 98.3 86 21 101/21 (47) 97 04/18/19 13:00 100 T-Piece 5.0 28 04/18/19 12:00 5.0 28 04/18/19 12:00 88 21 125/44 (71) 97 04/18/19 12:00 T-piece 5.0 T-piece 5.0 04/18/19 12:00 91 04/18/19 11:10 87 20 100 T-Piece 5.0 28 88 24 99 04/18/19 11:00 84 23 116/29 (58) 99 04/18/19 10:00 76 20 104/27 (52) 100 04/18/19 09:00 79 20 114/29 (57) 100 04/18/19 08:00 T-piece 5.0 T-piece 5.0 04/18/19 08:00 97.9 82 22 114/29 (57) 100 04/18/19 08:00 80 04/18/19 08:00 5.0 28 04/18/19 07:30 83 23 111/27 (55) 99 04/18/19 07:04 92 22 100 T-Piece 5.0 28 84 24 99 04/18/19 07:04 100 T-Piece 5.0 28 04/18/19 07:00 82 19 124/34 (64) 100 04/18/19 06:00 81 20 121/37 (65) 100 04/18/19 05:00 83 19 123/31 (61) 100 04/18/19 04:00 5.0 28 04/18/19 04:00 98.0 84 21 126/30 (62) 100 04/18/19 04:00 T-piece 5.0 T-piece 5.0 04/18/19 03:04 84 04/18/19 03:00 85 22 134/50 (78) 100 04/18/19 02:58 87 24 100 T-Piece 5.0 28 84 31 100 04/18/19 02:30 88 26 128/56 (80) 100 04/18/19 02:00 84 24 108/39 (62) 98 04/18/19 01:30 85 25 113/41 (65) 98 04/18/19 01:15 99 T-Piece 5.0 28 04/18/19 01:00 88 23 104/46 (65) 97 04/18/19 00:30 89 24 128/36 (66) 97 04/18/19 00:00 T-piece 5.0 T-piece 5.0 04/18/19 00:00 85 23 111/44 (66) 97 04/17/19 23:48 83 04/17/19 23:30 83 22 109/36 (60) 98 04/17/19 23:03 83 20 100 T-Piece 5.0 28 85 18 99 04/17/19 23:00 84 22 112/48 (69) 98 04/17/19 22:00 83 22 123/43 (69) 99 04/17/19 21:00 84 22 109/48 (68) 98 04/17/19 20:00 83 04/17/19 20:00 86 22 127/49 (75) 99 04/17/19 20:00 5.0 28 04/17/19 20:00 T-piece 5.0 T-piece 5.0 04/17/19 19:00 83 23 125/40 (68) 100 04/17/19 18:53 98 T-Piece 5.0 28 04/17/19 18:53 89 22 100 T-Piece 5.0 28 87 21 98 04/17/19 18:00 86 23 136/54 (81) 100 Intake and Output 04/17/19 04/18/19 18:59 06:59 Intake Total 1155 ml 1170 ml Output Total 600 ml 1100 ml Balance 555 ml 70 ml Free Water 225 ml 225 ml Tube Feeding 720 ml 720 ml Other 210 ml 225 ml Output Urine Total 600 ml 600 ml Gastric Drainage Total 500 ml # Bowel Movements 1 Height (Feet): 5 Height (Inches): 3.00 Weight (Pounds): 123 Objective Debilitated AA woman non-verbal, obtunded NCAT (+) trach coarse BS RR obese abd, (+) GJT no edema (+) contractured extremities Celio Vaughan MD Apr 18, 2019 17:16
--- NOTE | 2019-04-18 18:00 | NUR ---
NURSE NOTES: VS remain stable. Pt is afebrile. Pt has moderate amount of white oral secretion. Pt was repositioned, and is resting now in no apparent distress.
--- NOTE | 2019-04-18 19:29 | NUR ---
HAND-OFF: Report given to Umm PAEZ. Endorsed plan of care.
--- NOTE | 2019-04-18 19:30 | NUR ---
NURSE NOTES: Received patient from JEANNINE Rodriguez. Patient awake with eyes open. no s/s of acute distress noted. Patient arousable to name but does not track or communicate. Patient trach to T piece with 28% FIO2, satting 100%. Right upper arm PICC line that is patent. Dressing dry and intact. Patient has gastrostomy/jejunostomy tube is intact, running tube feeding of vital AF at 65mL/hr through the J-tube and draining to gravity from the G-tube. Optifoam dressing intact on sacral and bilateral heels. Bilateral heels elevated with pillows. Patient on low air loss mattress for wound management. Patient clean and dry. Patient bed in low position with bed alarm on and call light in reach at this time. Contact isolation maintained and observed. will continue plan of care.
[2019-04-18] MEDS: Dyna-Hex 2% Top Sol 2oz TOPIC SCH (20:14)
--- NOTE | 2019-04-18 21:00 | NUR ---
NURSE NOTES: Family at bedside
--- NOTE | 2019-04-18 23:00 | NUR ---
NURSE NOTES: Patient in bed with eyes open, TV therapy provided. No s/s of acute distress noted. Oral care and suctioned patient. Repositioned for comfort. Pure wick connected to low intermittent suction, draining. HOB elevated. no s/s of hypo/hyperglycemia. Contact isolation maintained and observed. will continue plan of care.
[2019-04-19] VITALS (31 sets, daily range): BP systolic 93–142; BP diastolic 21–110
--- NOTE | 2019-04-19 01:00 | NUR ---
NURSE NOTES: patient in bed sleeping comfortably. T-piece Fi02 28% satting 100%.HOB elevated. no s/s of acute distress noted. No fever. No n/v. no diarrhea. Turned and repositioned. Oral care and suctioned patient. HOB elevated.Frequent visual checks continued. Contact isolation maintained and observed.Will continue plan of care.
--- NOTE | 2019-04-19 02:30 | Progress Note ---
DATE: 04/18/2019 CARDIOLOGY PROGRESS NOTE SUBJECTIVE: The patient has no change in condition. Monitored rhythm sinus. OBJECTIVE: VITAL SIGNS: Blood pressure 111/27, pulse 83, and respirations 23. HEENT: G-tube . LUNGS: Few rhonchi. CARDIAC: Regular rhythm and rate. Normal S1 and S2. ABDOMEN: Soft. GJ tube intact. EXTREMITIES: Trace edema. LABORATORY DATA: Potassium 4.5, BUN 64, creatinine 0.9, and magnesium 2.5. AST and ALT 54 and 113 with alkaline phosphatase 143. Albumin 3.2. IMPRESSION: 1. Transaminitis. 2. Respiratory failure. 3. Diastolic hypotension. 4. Prerenal azotemia. 5. Probable intravascular volume depletion. PLAN: 1. Recommend volume support. 2. . 3. Nutrition by feeding tube. 4. Monitor hepatic function. Bg Hagen M.D. DR: KAILA JOB#: [id number] CC:
[2019-04-19] MEDS: Albuterol/Ipratropium 3ml neb HHN SCH ×6 (02:55→23:06)
--- NOTE | 2019-04-19 07:15 | NUR ---
HAND-OFF: Report given to Jennifer PAEZ.
--- NOTE | 2019-04-19 07:49 | Pulmonology Progress Note ---
Assessment/Plan Assessment/Plan Impression: history of Sepsis history of Pneumonia Trach, G tube, Hypertension, Cardiac disease, Dementia, Previous CVA, Seizure disorder, Respiratory failure with hypoxia Anemia, Sacral ulcer renal cyst chronic pulmonary congestion Plan monitor for change in resp status off vent needs suctioning oxygen low flow aspiration precautions to continue elevate head and monitor secretions DNR. No CPR. ICU care reviewed meds noted off load as able nutrition monitor residual and reflux aspiration all changes noted and discussed chronic management reviewed medications/laboratory data/nursing notes/ICU care reviewed in detail note reviewed and edited care discussed with RN and RT Subjective ROS Limited/Unobtainable: Yes Allergies: Coded Allergies: CODEINE (Verified Allergy, Unknown, HIVES, 09/15/09) Subjective overnight events noted; respiratory status reviewed concerns reviewed bed bound and obtunded ICU care issues discussed bed bound and obtunded meds reviewed Objective Last 24 Hour Vital Signs Date Time Temp Pulse Resp B/P (MAP) Pulse Ox O2 Delivery O2 Flow Rate FiO2 04/19/19 07:30 82 18 142/110 (121) 100 04/19/19 07:22 78 22 100 T-Piece 5.0 28 80 23 100 04/19/19 07:22 80 23 100 T-Piece 5.0 28 04/19/19 07:22 100 T-Piece 5.0 28 04/19/19 07:00 75 21 102/22 (48) 100 04/19/19 06:30 74 20 115/36 (62) 100 04/19/19 06:00 77 19 118/33 (61) 100 04/19/19 05:00 75 19 114/36 (62) 100 04/19/19 04:30 79 18 117/36 (63) 100 04/19/19 04:00 T-piece 5.0 T-piece 5.0 04/19/19 04:00 82 04/19/19 04:00 5.0 28 04/19/19 04:00 98.2 89 18 129/65 (86) 100 04/19/19 03:30 87 20 111/92 (98) 100 04/19/19 03:00 77 20 119/25 (56) 100 04/19/19 02:54 83 20 100 T-Piece 6.0 28 80 21 100 04/19/19 02:30 79 22 117/40 (65) 100 04/19/19 02:00 80 22 104/37 (59) 100 04/19/19 01:06 100 T-Piece 6.0 28 04/19/19 01:00 82 23 95/27 (49) 98 04/19/19 00:00 5.0 28 04/19/19 00:00 T-piece 5.0 T-piece 5.0 04/19/19 00:00 98.0 83 23 103/34 (57) 97 04/19/19 00:00 83 04/18/19 23:30 84 22 132/109 (117) 100 04/18/19 23:23 87 22 100 T-Piece 6.0 28 84 23 99 04/18/19 23:00 82 23 146/42 (76) 100 04/18/19 22:00 83 22 113/32 (59) 98 04/18/19 21:30 85 22 105/41 (62) 97 04/18/19 21:00 85 21 94/40 (58) 96 04/18/19 20:30 82 21 112/25 (54) 99 04/18/19 20:00 83 04/18/19 20:00 T-piece 5.0 T-piece 5.0 04/18/19 20:00 97.9 82 21 104/34 (57) 98 04/18/19 20:00 5.0 28 04/18/19 19:32 97 T-Piece 6.0 28 04/18/19 19:29 87 21 100 T-Piece 6.0 28 85 22 97 04/18/19 19:00 87 22 104/41 (62) 96 04/18/19 18:00 82 20 117/31 (59) 100 04/18/19 17:00 85 19 126/32 (63) 100 04/18/19 16:00 82 04/18/19 16:00 5.0 28 04/18/19 16:00 T-piece 5.0 T-piece 5.0 04/18/19 16:00 98.3 92 23 125/76 (92) 99 04/18/19 15:42 85 22 100 T-Piece 5.0 28 80 18 98 04/18/19 15:00 83 22 120/31 (60) 99 04/18/19 14:00 84 21 123/53 (76) 100 04/18/19 13:00 98.3 86 21 101/21 (47) 97 04/18/19 13:00 100 T-Piece 5.0 28 04/18/19 12:00 5.0 28 04/18/19 12:00 88 21 125/44 (71) 97 04/18/19 12:00 T-piece 5.0 T-piece 5.0 04/18/19 12:00 91 04/18/19 11:10 87 20 100 T-Piece 5.0 28 88 24 99 04/18/19 11:00 84 23 116/29 (58) 99 04/18/19 10:00 76 20 104/27 (52) 100 04/18/19 09:00 79 20 114/29 (57) 100 04/18/19 08:00 T-piece 5.0 T-piece 5.0 04/18/19 08:00 97.9 82 22 114/29 (57) 100 04/18/19 08:00 80 04/18/19 08:00 5.0 28 Intake and Output 04/18/19 04/19/19 19:00 07:00 Intake Total 855 ml 1020 ml Output Total 590 ml 1300 ml Balance 265 ml -280 ml Free Water 135 ml Tube Feeding 720 ml 720 ml Other 300 ml Output Urine Total 390 ml 600 ml Gastric Drainage Total 200 ml 700 ml Objective WDWN NAD contracted off vent reduced breath sounds bilaterally without rhonchi or wheeze [id number] without MRG NABS nontender no HSM no CC trace edema same nonfocal nonverbal trach and gt reviewed and edited Current Medications Medications (Trade) Dose Ordered Sig/Maicol Route PRN Reason Start Time Stop Time Status Last Admin Dose Admin Acetaminophen (Tylenol) 650 mg Q6H PRN GT Mild Pain/Temp > 100.5 03/23/19 15:15 04/22/19 15:14 04/15/19 22:23 Albuterol/ Ipratropium (Albuterol/ Ipratropium) 3 ml Q4HRT HHN 04/15/19 07:00 04/20/19 06:59 04/19/19 07:22 Atropine Sulfate (Atropine Opth Adriana) 1 drop THREE TIMES A DAY SL 04/08/19 09:00 05/07/19 20:59 04/18/19 17:51 Chlorhexidine Gluconate (Cesilia-Hex 2%) 1 applic DAILY@2000 TOPIC 04/12/19 20:00 05/12/19 19:59 04/18/19 20:14 Folic Acid (Folate) 1 mg DAILY GT 04/08/19 09:00 05/08/19 08:59 04/18/19 09:55 Heparin Sodium (Porcine) (Heparin 5000 units/ml) 5,000 units EVERY 12 HOURS SUBQ 04/01/19 10:00 05/01/19 09:59 04/18/19 20:15 Hydralazine HCl (Apresoline) 25 mg Q6H PRN ORAL SBP above 150 04/06/19 02:45 05/06/19 02:44 04/06/19 11:15 Lansoprazole (Prevacid) 30 mg Q12HR GT 03/29/19 09:00 04/24/19 20:59 04/18/19 20:14 Levetiracetam (Keppra) 750 mg Q12HR GT 04/07/19 21:00 05/07/19 20:59 04/18/19 20:14 Sorbitol (Sorbitol) 30 ml BIDPRN PRN ORAL Constipation 04/13/19 11:15 05/13/19 11:14 Sorbitol (sorbitoL) 30 ml DAILY GT 04/14/19 09:00 05/14/19 08:59 04/18/19 09:56 Amaury Chan MD Apr 19, 2019 07:49
--- NOTE | 2019-04-19 08:00 | NUR ---
NURSE NOTES: Received change of shift report from Umm PAEZ. Pt has eyes closed, opens eyes to touch, withdraws to pain. Pt has trach, Shiley 6, XLT connected to Tpiece at 28% FIO2 at 100% O2Sat with bilateral inspiratory and expiratory rhonchi noted on auscultation. NSR on cardiac cath technician, HR 75. Pt has GJ-tube. JT is connected to Vital AF 1.2 at goal rate of 60ml. GT is connected to gravity, with small output of yellow liquid. Pt is tolerating feeding well with no noted residual. Abdomen is large, round, soft, nontender to touch with hypoactive bowel sounds. Left upper arm double lumen PICC is in place, TKO, patent/intact. External urinary catheter is in place, draining clear/yellow urine. Skin has left hand wound, covered with dressing, dry/intact. Pt is on P200 pressure releasing mattress with bilateral heels/elevated, floating/off heels. Will continue with plan of care.
--- NOTE | 2019-04-19 08:21 | General Progress Note ---
Assessment/Plan Problem List: (1) Seizure ICD Codes: R56.9 - Unspecified convulsions SNOMED: 48623384 (2) Anemia ICD Codes: D64.9 - Anemia, unspecified SNOMED: 913019055 Qualifiers: Qualified Codes: D64.9 - Anemia, unspecified (3) Sepsis ICD Codes: A41.9 - Sepsis, unspecified organism SNOMED: 93554615, 849797039 Qualifiers: Qualified Codes: A41.9 - Sepsis, unspecified organism (4) Respiratory failure with hypoxia ICD Codes: J96.91 - Respiratory failure, unspecified with hypoxia SNOMED: 30581308705304150 Qualifiers: Qualified Codes: J96.21 - Acute and chronic respiratory failure with hypoxia (5) HCAP (healthcare-associated pneumonia) ICD Codes: J18.9 - Pneumonia, unspecified organism SNOMED: 416061060, 205797563 (6) Sacral decubitus ulcer ICD Codes: L89.159 - Pressure ulcer of sacral region, unspecified stage SNOMED: 606463352 (7) HTN (hypertension) ICD Codes: I10 - Essential (primary) hypertension SNOMED: 84146020 (8) Chronic vegetative state ICD Codes: R40.3 - Persistent vegetative state SNOMED: 22310634 (9) Chronic respiratory failure ICD Codes: J96.10 - Chronic respiratory failure, unspecified whether with hypoxia or hypercapnia SNOMED: 77886204 (10) Limited mobility ICD Codes: Z74.09 - Other reduced mobility SNOMED: 5457965 Status: stable, progressing Assessment/Plan: vent as needed resp rx suctioning j tube feeds g port to gravity skin care sz rx check labs bowel regime dc planning Subjective ROS Limited/Unobtainable: No Constitutional: Reports: malaise, weakness HEENT: Reports: no symptoms Cardiovascular: Reports: no symptoms Respiratory: Reports: cough, shortness of breath, sputum Gastrointestinal/Abdominal: Reports: difficulty swallowing Genitourinary: Reports: no symptoms Neurologic/Psychiatric: Reports: pre-existing deficit, seizure Endocrine: Reports: no symptoms Hematologic/Lymphatic: Reports: no symptoms Allergies: Coded Allergies: CODEINE (Verified Allergy, Unknown, HIVES, 09/15/09) All Systems: reviewed and negative except above Subjective no events. no reports of bleeding. tolerating feeds, no vomiting. minimal secretions. no szs Objective Last 24 Hour Vital Signs Date Time Temp Pulse Resp B/P (MAP) Pulse Ox O2 Delivery O2 Flow Rate FiO2 04/19/19 07:30 82 18 142/110 (121) 100 04/19/19 07:22 78 22 100 T-Piece 5.0 28 80 23 100 04/19/19 07:22 80 23 100 T-Piece 5.0 28 04/19/19 07:22 100 T-Piece 5.0 28 04/19/19 07:00 75 21 102/22 (48) 100 04/19/19 06:30 74 20 115/36 (62) 100 04/19/19 06:00 77 19 118/33 (61) 100 04/19/19 05:00 75 19 114/36 (62) 100 04/19/19 04:30 79 18 117/36 (63) 100 04/19/19 04:00 T-piece 5.0 T-piece 5.0 04/19/19 04:00 82 04/19/19 04:00 5.0 28 04/19/19 04:00 98.2 89 18 129/65 (86) 100 04/19/19 03:30 87 20 111/92 (98) 100 04/19/19 03:00 77 20 119/25 (56) 100 04/19/19 02:54 83 20 100 T-Piece 6.0 28 80 21 100 04/19/19 02:30 79 22 117/40 (65) 100 04/19/19 02:00 80 22 104/37 (59) 100 04/19/19 01:06 100 T-Piece 6.0 28 04/19/19 01:00 82 23 95/27 (49) 98 04/19/19 00:00 5.0 28 04/19/19 00:00 T-piece 5.0 T-piece 5.0 04/19/19 00:00 98.0 83 23 103/34 (57) 97 04/19/19 00:00 83 04/18/19 23:30 84 22 132/109 (117) 100 04/18/19 23:23 87 22 100 T-Piece 6.0 28 84 23 99 04/18/19 23:00 82 23 146/42 (76) 100 04/18/19 22:00 83 22 113/32 (59) 98 04/18/19 21:30 85 22 105/41 (62) 97 04/18/19 21:00 85 21 94/40 (58) 96 04/18/19 20:30 82 21 112/25 (54) 99 04/18/19 20:00 83 04/18/19 20:00 T-piece 5.0 T-piece 5.0 04/18/19 20:00 97.9 82 21 104/34 (57) 98 04/18/19 20:00 5.0 28 04/18/19 19:32 97 T-Piece 6.0 28 04/18/19 19:29 87 21 100 T-Piece 6.0 28 85 22 97 04/18/19 19:00 87 22 104/41 (62) 96 04/18/19 18:00 82 20 117/31 (59) 100 04/18/19 17:00 85 19 126/32 (63) 100 04/18/19 16:00 82 04/18/19 16:00 5.0 28 04/18/19 16:00 T-piece 5.0 T-piece 5.0 04/18/19 16:00 98.3 92 23 125/76 (92) 99 04/18/19 15:42 85 22 100 T-Piece 5.0 28 80 18 98 04/18/19 15:00 83 22 120/31 (60) 99 04/18/19 14:00 84 21 123/53 (76) 100 04/18/19 13:00 98.3 86 21 101/21 (47) 97 04/18/19 13:00 100 T-Piece 5.0 28 04/18/19 12:00 5.0 28 04/18/19 12:00 88 21 125/44 (71) 97 04/18/19 12:00 T-piece 5.0 T-piece 5.0 04/18/19 12:00 91 04/18/19 11:10 87 20 100 T-Piece 5.0 28 88 24 99 04/18/19 11:00 84 23 116/29 (58) 99 04/18/19 10:00 76 20 104/27 (52) 100 04/18/19 09:00 79 20 114/29 (57) 100 Intake and Output 04/18/19 04/19/19 19:00 07:00 Intake Total 855 ml 1020 ml Output Total 590 ml 1300 ml Balance 265 ml -280 ml Free Water 135 ml Tube Feeding 720 ml 720 ml Other 300 ml Output Urine Total 390 ml 600 ml Gastric Drainage Total 200 ml 700 ml Height (Feet): 5 Height (Inches): 3.00 Weight (Pounds): 125 Objective General Appearance: WD/WN, confused. on trach collar Neck: supple Cardiovascular: normal rate, regular rhythm Respiratory/Chest: chest wall non-tender, rhonchi - bilaterally(minimal) Abdomen: normal bowel sounds, non tender, soft, no organomegaly Edema: no edema noted Arm (L), no edema noted Arm (R), no edema noted Leg (L), no edema noted Leg (R), no edema noted Pedal (L), no edema noted Pedal (R), no edema noted Generalized Neurologic: disoriented, unresponsive, aphasia Irvin Beltrán MD Apr 19, 2019 08:21
--- NOTE | 2019-04-19 09:35 | NUR ---
RD ASSESSMENT & RECOMMENDATIONS SEE CARE ACTIVITY FOR COMPLETE ASSESSMENT DAILY ESTIMATED NEEDS: Needs based on Pulmonary, wounds, bedbound/ 61kg adj 25-30 kcals/kg 1406-9007 total kcals 1.25-2 g protein/kg 76-122 g total protein 25-30 mL/kg 8826-8511 total fluid mLs NUTRITION DIAGNOSIS: * Increased kcal/prot needs R/T wound healing as evidenced by BL buttocks and sacral wound photos, refer to WC eval-> wounds resolving, sacrum healed. * Swallowing difficulty R/T respiratory status as evidenced by pt on T-collar, s/p G-J conversion ENTERAL NUTRITION RECOMMENDATIONS: VITAL AF 1.2 @ 60ml/hr x 24 hrs to provide 1440ml, 1728kcal, 108g prot, 1167ml free water - Maintain current TF -> meets 100% est needs - HOB over 30 degrees - increase water flushes (BUN elevated) ADDITIONAL RECOMMENDATIONS: 1) RE-calibrate bedscale wt: fluctuating daily wts (123-136#) 2) Wound healing: Cristian BID for skin integrity 3) Monitor BGs closely, need for NISS -> now w/ improved BGs 4) Monitor for continued good TF tolerance 5) BUN trending up -> rec to increase water flushes . .
[2019-04-19] MEDS: Sorbitol Solution UD 30ml GT SCH (09:38)
[2019-04-19] MEDS: Heparin 5000 units/ml inj SUBQ SCH ×2 (09:47→20:14)
--- NOTE | 2019-04-19 10:00 | NUR ---
NURSE NOTES: AM meds were administered. VS remains stable. Pt has moderate amount of thick white secretions and was suctioned orally and via trach T-piece. Pt was repositioned.
[2019-04-19 10:23] LABS: BASOPHILS % (AUTO) 0.5 % (0.0-2.0); EOSINOPHILS % (AUTO) 3.4 % (0.0-3.0); HEMATOCRIT 32.5 % (37.0-47.0); HEMOGLOBIN 10.7 G/DL (12.0-16.0); LYMPHOCYTES % (AUTO) 30.3 % (20.0-45.0); MEAN CORPUSCULAR VOLUME 91 FL (80-99); MONOCYTES % (AUTO) 4.2 % (1.0-10.0); NEUTROPHILS % (AUTO) 61.7 % (45.0-75.0); PLATELET COUNT 187 K/UL (150-450); RED BLOOD COUNT 3.56 M/UL (4.20-5.40); RED CELL DISTRIBUTION WIDTH 15.2 % (11.6-14.8); WHITE BLOOD COUNT 10.2 K/UL (4.8-10.8)
[2019-04-19 10:47] LABS: ALANINE AMINOTRANSFERASE 107 U/L (12-78); ALBUMIN 3.2 G/DL (3.4-5.0); ALBUMIN/GLOBULIN RATIO 0.6 (1.0-2.7); ALKALINE PHOSPHATASE 125 U/L (46-116); ANION GAP 8 mmol/L (5-15); ASPARTATE AMINO TRANSFERASE 43 U/L (15-37); BILIRUBIN,TOTAL 0.2 MG/DL (0.2-1.0); BLOOD UREA NITROGEN 52 mg/dL (7-18); CALCIUM 9.3 MG/DL (8.5-10.1); CARBON DIOXIDE 29 MMOL/L (21-32); CHLORIDE 109 MMOL/L (98-107); CREATININE 0.9 MG/DL (0.55-1.30); POTASSIUM 4.2 MMOL/L (3.5-5.1); SODIUM 146 MMOL/L (136-145)
--- NOTE | 2019-04-19 11:36 | Nephrology Progress Note ---
Assessment/Plan Problem List: (1) Acute renal failure (ARF) Assessment: Cr stable (2) Chronic respiratory failure (3) Anemia (4) Sepsis Assessment Acute renal failure Respiratory failure - Trach Low Mag- Low k , Low Na Anemia UTI / Sepsis Proteinuria / HypoAlbuminemia high Trigs Sz decubs bed bound DNR Plan Transfused previously now has JT bolus Albumin as needed K and Mag and Phos supplement as needed Hydrate as needed Urine studies avoid Nephrotoxics mag K Phos supplements as needed monitor renal parameters Subjective ROS Limited/Unobtainable: Yes Objective Objective Last 24 Hour Vital Signs Date Time Temp Pulse Resp B/P (MAP) Pulse Ox O2 Delivery O2 Flow Rate FiO2 04/19/19 11:05 84 23 100 T-Piece 5.0 28 89 24 99 04/19/19 11:00 81 20 113/32 (59) 100 04/19/19 10:00 77 20 118/42 (67) 100 04/19/19 09:00 74 21 116/32 (60) 100 04/19/19 08:00 98.2 77 19 119/25 (56) 99 04/19/19 08:00 5.0 28 04/19/19 08:00 95 04/19/19 08:00 T-piece 5.0 T-piece 5.0 04/19/19 07:30 82 18 142/110 (121) 100 04/19/19 07:22 78 22 100 T-Piece 5.0 28 80 23 100 04/19/19 07:22 80 23 100 T-Piece 5.0 28 04/19/19 07:22 100 T-Piece 5.0 28 04/19/19 07:00 75 21 102/22 (48) 100 04/19/19 06:30 74 20 115/36 (62) 100 04/19/19 06:00 77 19 118/33 (61) 100 04/19/19 05:00 75 19 114/36 (62) 100 04/19/19 04:30 79 18 117/36 (63) 100 04/19/19 04:00 T-piece 5.0 T-piece 5.0 04/19/19 04:00 82 04/19/19 04:00 5.0 28 04/19/19 04:00 98.2 89 18 129/65 (86) 100 04/19/19 03:30 87 20 111/92 (98) 100 04/19/19 03:00 77 20 119/25 (56) 100 04/19/19 02:54 83 20 100 T-Piece 6.0 28 80 21 100 04/19/19 02:30 79 22 117/40 (65) 100 04/19/19 02:00 80 22 104/37 (59) 100 04/19/19 01:06 100 T-Piece 6.0 28 04/19/19 01:00 82 23 95/27 (49) 98 04/19/19 00:00 5.0 28 04/19/19 00:00 T-piece 5.0 T-piece 5.0 04/19/19 00:00 98.0 83 23 103/34 (57) 97 04/19/19 00:00 83 04/18/19 23:30 84 22 132/109 (117) 100 04/18/19 23:23 87 22 100 T-Piece 6.0 28 84 23 99 04/18/19 23:00 82 23 146/42 (76) 100 04/18/19 22:00 83 22 113/32 (59) 98 04/18/19 21:30 85 22 105/41 (62) 97 04/18/19 21:00 85 21 94/40 (58) 96 04/18/19 20:30 82 21 112/25 (54) 99 04/18/19 20:00 83 04/18/19 20:00 T-piece 5.0 T-piece 5.0 04/18/19 20:00 97.9 82 21 104/34 (57) 98 04/18/19 20:00 5.0 28 04/18/19 19:32 97 T-Piece 6.0 28 04/18/19 19:29 87 21 100 T-Piece 6.0 28 85 22 97 04/18/19 19:00 87 22 104/41 (62) 96 04/18/19 18:00 82 20 117/31 (59) 100 04/18/19 17:00 85 19 126/32 (63) 100 04/18/19 16:00 82 04/18/19 16:00 5.0 28 04/18/19 16:00 T-piece 5.0 T-piece 5.0 04/18/19 16:00 98.3 92 23 125/76 (92) 99 04/18/19 15:42 85 22 100 T-Piece 5.0 28 80 18 98 04/18/19 15:00 83 22 120/31 (60) 99 04/18/19 14:00 84 21 123/53 (76) 100 04/18/19 13:00 98.3 86 21 101/21 (47) 97 04/18/19 13:00 100 T-Piece 5.0 28 04/18/19 12:00 5.0 28 04/18/19 12:00 88 21 125/44 (71) 97 04/18/19 12:00 T-piece 5.0 T-piece 5.0 04/18/19 12:00 91 Intake and Output 04/18/19 04/19/19 19:00 07:00 Intake Total 855 ml 1020 ml Output Total 590 ml 1300 ml Balance 265 ml -280 ml Free Water 135 ml Tube Feeding 720 ml 720 ml Other 300 ml Output Urine Total 390 ml 600 ml Gastric Drainage Total 200 ml 700 ml Laboratory Tests 04/19/19 09:26: White Blood Count 10.2, Red Blood Count 3.56L, Hemoglobin 10.7L, Hematocrit 32.5L, Mean Corpuscular Volume 91, Mean Corpuscular Hemoglobin 30.0, Mean Corpuscular Hemoglobin Concent 32.9, Red Cell Distribution Width 15.2H, Platelet Count 187, Mean Platelet Volume 5.8L, Neutrophils (%) (Auto) 61.7, Lymphocytes (%) (Auto) 30.3, Monocytes (%) (Auto) 4.2, Eosinophils (%) (Auto) 3.4H, Basophils (%) (Auto) 0.5, Sodium Level 146H, Potassium Level 4.2, Chloride Level 109H, Carbon Dioxide Level 29, Anion Gap 8, Blood Urea Nitrogen 52H, Creatinine 0.9, Estimat Glomerular Filtration Rate , Glucose Level 104, Calcium Level 9.3, Magnesium Level 2.3, Total Bilirubin 0.2, Aspartate Amino Transf (AST/SGOT) 43H, Alanine Aminotransferase (ALT/SGPT) 107H, Alkaline Phosphatase 125H, Total Protein 8.6H, Albumin 3.2L, Globulin 5.4, Albumin/ Globulin Ratio 0.6L Height (Feet): 5 Height (Inches): 3.00 Weight (Pounds): 125 General Appearance: no apparent distress EENT: other - O2 tube Cardiovascular: normal rate Respiratory/Chest: decreased breath sounds Abdomen: soft Objective no change Eric Cortez MD Apr 19, 2019 11:36
--- NOTE | 2019-04-19 12:00 | NUR ---
NURSE NOTES: VS remain stable. Pt was repositioned. Oral care was done. Pt was suctioned, output of moderate amount of thick white secretions.
[2019-04-19] MEDS ORDERED: Tubing IV Secondary IV ONE (13:49)
[2019-04-19] MEDS ORDERED: Sterile Water Irrig 1000ml IRRIG ONE ×2 (13:49→15:53)
--- NOTE | 2019-04-19 14:15 | NUR ---
NURSE NOTES: Pt is tolerating tube feeding well with no noted residual. VS remain stable. Pt was suctioned orally and via T-piece/trach. Pt was repositioned, and is now resting in no apparent distress.
--- NOTE | 2019-04-19 15:32 | Surgery Progress Note ---
Surgery Progress Note Subjective Symptoms: other Objective Last 24 Hour Vital Signs Date Time Temp Pulse Resp B/P (MAP) Pulse Ox O2 Delivery O2 Flow Rate FiO2 04/19/19 15:01 82 27 100 T-Piece 5.0 28 83 27 99 04/19/19 15:00 83 22 125/36 (65) 100 04/19/19 14:00 81 20 126/34 (64) 100 04/19/19 13:00 81 20 131/33 (65) 100 04/19/19 13:00 100 T-Piece 5.0 28 04/19/19 12:00 5.0 28 04/19/19 12:00 83 21 93/21 (45) 98 04/19/19 12:00 T-piece 5.0 T-piece 5.0 04/19/19 12:00 83 04/19/19 11:05 84 23 100 T-Piece 5.0 28 89 24 99 04/19/19 11:00 81 20 113/32 (59) 100 04/19/19 10:00 77 20 118/42 (67) 100 04/19/19 09:00 74 21 116/32 (60) 100 04/19/19 08:00 98.2 77 19 119/25 (56) 99 04/19/19 08:00 5.0 28 04/19/19 08:00 95 04/19/19 08:00 T-piece 5.0 T-piece 5.0 04/19/19 07:30 82 18 142/110 (121) 100 04/19/19 07:22 78 22 100 T-Piece 5.0 28 80 23 100 04/19/19 07:22 80 23 100 T-Piece 5.0 28 04/19/19 07:22 100 T-Piece 5.0 28 04/19/19 07:00 75 21 102/22 (48) 100 04/19/19 06:30 74 20 115/36 (62) 100 04/19/19 06:00 77 19 118/33 (61) 100 04/19/19 05:00 75 19 114/36 (62) 100 04/19/19 04:30 79 18 117/36 (63) 100 04/19/19 04:00 T-piece 5.0 T-piece 5.0 04/19/19 04:00 82 04/19/19 04:00 5.0 28 04/19/19 04:00 98.2 89 18 129/65 (86) 100 04/19/19 03:30 87 20 111/92 (98) 100 04/19/19 03:00 77 20 119/25 (56) 100 04/19/19 02:54 83 20 100 T-Piece 6.0 28 80 21 100 04/19/19 02:30 79 22 117/40 (65) 100 04/19/19 02:00 80 22 104/37 (59) 100 04/19/19 01:06 100 T-Piece 6.0 28 04/19/19 01:00 82 23 95/27 (49) 98 04/19/19 00:00 5.0 28 04/19/19 00:00 T-piece 5.0 T-piece 5.0 04/19/19 00:00 98.0 83 23 103/34 (57) 97 04/19/19 00:00 83 04/18/19 23:30 84 22 132/109 (117) 100 04/18/19 23:23 87 22 100 T-Piece 6.0 28 84 23 99 04/18/19 23:00 82 23 146/42 (76) 100 04/18/19 22:00 83 22 113/32 (59) 98 04/18/19 21:30 85 22 105/41 (62) 97 04/18/19 21:00 85 21 94/40 (58) 96 04/18/19 20:30 82 21 112/25 (54) 99 04/18/19 20:00 83 04/18/19 20:00 T-piece 5.0 T-piece 5.0 04/18/19 20:00 97.9 82 21 104/34 (57) 98 04/18/19 20:00 5.0 28 04/18/19 19:32 97 T-Piece 6.0 28 04/18/19 19:29 87 21 100 T-Piece 6.0 28 85 22 97 04/18/19 19:00 87 22 104/41 (62) 96 04/18/19 18:00 82 20 117/31 (59) 100 04/18/19 17:00 85 19 126/32 (63) 100 04/18/19 16:00 82 04/18/19 16:00 5.0 28 04/18/19 16:00 T-piece 5.0 T-piece 5.0 04/18/19 16:00 98.3 92 23 125/76 (92) 99 04/18/19 15:42 85 22 100 T-Piece 5.0 28 80 18 98 I&O Intake and Output 04/18/19 04/19/19 19:00 07:00 Intake Total 855 ml 1020 ml Output Total 590 ml 1300 ml Balance 265 ml -280 ml Free Water 135 ml Tube Feeding 720 ml 720 ml Other 300 ml Output Urine Total 390 ml 600 ml Gastric Drainage Total 200 ml 700 ml Dressing: dry, other Wound: clean, other Drains: other Cardiovascular: RSR Respiratory: clear, decreased breath sounds Abdomen: soft, present bowel sounds Extremities: no tenderness, no cyanosis, other Laboratory Tests Test 04/19/19 09:26 White Blood Count 10.2 K/UL (4.8-10.8) Red Blood Count 3.56 M/UL (4.20-5.40) L Hemoglobin 10.7 G/DL (12.0-16.0) L Hematocrit 32.5 % (37.0-47.0) L Mean Corpuscular Volume 91 FL (80-99) Mean Corpuscular Hemoglobin 30.0 PG (27.0-31.0) Mean Corpuscular Hemoglobin Concent 32.9 G/DL (32.0-36.0) Red Cell Distribution Width 15.2 % (11.6-14.8) H Platelet Count 187 K/UL (150-450) Mean Platelet Volume 5.8 FL (6.5-10.1) L Neutrophils (%) (Auto) 61.7 % (45.0-75.0) Lymphocytes (%) (Auto) 30.3 % (20.0-45.0) Monocytes (%) (Auto) 4.2 % (1.0-10.0) Eosinophils (%) (Auto) 3.4 % (0.0-3.0) H Basophils (%) (Auto) 0.5 % (0.0-2.0) Sodium Level 146 MMOL/L (136-145) H Potassium Level 4.2 MMOL/L (3.5-5.1) Chloride Level 109 MMOL/L (98-107) H Carbon Dioxide Level 29 MMOL/L (21-32) Anion Gap 8 mmol/L (5-15) Blood Urea Nitrogen 52 mg/dL (7-18) H Creatinine 0.9 MG/DL (0.55-1.30) Estimat Glomerular Filtration Rate mL/min (>60) Glucose Level 104 MG/DL (74-106) Calcium Level 9.3 MG/DL (8.5-10.1) Magnesium Level 2.3 MG/DL (1.8-2.4) Total Bilirubin 0.2 MG/DL (0.2-1.0) Aspartate Amino Transf (AST/SGOT) 43 U/L (15-37) H Alanine Aminotransferase (ALT/SGPT) 107 U/L (12-78) H Alkaline Phosphatase 125 U/L (46-116) H Total Protein 8.6 G/DL (6.4-8.2) H Albumin 3.2 G/DL (3.4-5.0) L Globulin 5.4 g/dL Albumin/Globulin Ratio 0.6 (1.0-2.7) L Plan Problems: (1) Sacral decubitus ulcer Assessment & Plan: This is a 83-year-old female with multiple medical committees that is currently admitted for medical care and management and identified to have multiple wounds requiring care. On admission patient noted to have a resolved sacral decubitus ulcer. Has had prior care and is well-healed at this time. Will ensure it does not open up again. Patient has a right ischial decubitus ulcer that is resolved. Scar intact and well formed. Will monitor to ensure it does not open up again. Patient has a left ischial decubitus ulcer that can be identified to be stage IV with palpable bone that has been resolving as noted by the periwound tissue and scar but open area approximately 1 cm x 1.5 cm few millimeters deep to bone identified. Unsure if this is been to be completely healed prior and has since opened or if has been healing at this level. No foul odor no drainage was unsure local wound care until healed Bilateral heels soft without signs of injury Resolving pressure injury L ischium(L)1.8cm x (W)1cm.Scattered biofilm at base of wound. Edges flat and adherent with surrounding hyperpigmentation. No odor or exudate noted. Sacrum is pale pink with surrounding hyperpigmentation. Hyperpigmentation R ischium with small sheared area centrally.No areas of erythema or exudate noted. Both heels are soft but blanchable. Skin Assessed under collar of trach and no evidence of skin breakdown noted. All wound Tx. are effective and continued as ordered. Pt ahs an APM/Belén mattress overlay and is being repositioned per protocols and per tolerance.No new skin concerns noted. Full thickness pressure injury L Ischium with small amt biofilm (L)1.8cm x (W) 1cm. Surrounding pink hyperpigmentation. No odor or exudate noted. [place] hyperpigmentation from previous wound noted to sacrum. Pt also noted to have Cat 2 Skin Tear dorsal L hand, L 5th metatarsal extending into palm of hand. 80% skin flap in situ.Both heels are dry firm and blanchable. No other skin concerns noted. R ischial wound has resolved. [place] epithelial with surrounding hyperpigmentation. from historical wound. Full thickness pressure injury L ischium. [place] granulation at base of wound. Borders are macerated with Surrounding hyperpigmentation.Small amt non-odorous serous exudate noted.(L)0.7cm x (W)0.8cm. Skin hyperpigmentation from historical wound noted to Sacrum. Small sheared area noted to sacrococcygeal area.(L)0.4cm x (W)0.3cm.Small amt sanguineous exudate noted. Reabsorbed blister with semi-detached dry necrotic cap noted to web space of L thumb and L index fingers extending into palm of L hand. No odor or exudate noted. Skin assessed under tracheal collar and no erythema or evidence of Skin Breakdown noted. NO new skin concerns noted . Good hand hygiene provided to both hands. R hand contracted and fisted. Fingernails trimmed. Wound care provided along with Primary nurse. Wound Tx continued as ordered. New order obtained from to apply Betadine to wound L hand Daily. Tx done as ordered. L hand wrapped with kerlix weaving kerlix between fingers to separate fingers. Moisture Barrier applied to sacrum ,R ischium. Each site covered with Optifoam drsg. Both lower ext washed and moisturized. Cavilon Skin Barrier applied to both heels.Each heel covered with Optifoam drsgs. Pt positioned with pillows and both heels off-loaded with pillow. Pt wounds are resolving. Loose necrotic cap within web space of L index finger and L thumb easily removed with gentle friction. Base of wound is hypergranular with 10% necrosis. Borders are macerated. Application of Silver Nitrate to hypergranular base done. Cavilon Skin Barrier applied to borders . Good hand hygiene provided. Wound covered with Abd pad. L hand wrapped with Kerlix weaving Kerlix between digitsof L hand. Pressure injury L ischium resolving. Base iof wound is pale pink and dry with surrounding hyperpigmentation and scar from previous wound. Hyperpigmentation with historical scars noted to Sacrum and R ischium. Both heels are soft and blanchable. Skin Assessed under trach collar and no evidence of skin breakdown noted. Tx.Plan: Apply Betadine to wound L hand. Cover with Gauze and wrap with Kerlix Daily and prn. Cleanse L ischial wound with Saline. Apply Therahoney. Apply Moisture Barrier periwound. Cover with Optifoam drsgevery 3 days and prn. Apply Moisture Barrier Paste to R ischium and Sacrum. Cover each area with Optifoam drsg. Change every 3 days and prn. Apply Cavilon Skin Barrier to both heels. Cover each heel with Optifoam drsg. Change every 7 days and prn. Cleanse Blister Dorsal and palm of L hand with saline. Versatel One Silicone Contact Layer(Applied). Apply Silvasorb Gel. Wrap with Kerlix Gauze.Change every 7 days and prn. Apply Moisture Barrier to sacrum. Cover with Optifoam drsg. Change every 3 days and prn. APM/BELÉN Mattress overlay. Reposition at least every 2hours or as tolerated. Off-load heels with pillow. Nutritional optimization We will monitor follow with recommendations cont with above upon d/c wounds healing overall improving (2) Sepsis Assessment & Plan: IV abx as per ID trend labs improving wounds unlikely etiology likely respiratory imaging noted and okay abnormal lft's stable PICC on Abx in ICU for desaturation CXR with consolidation cont with frequent suctioning d/c planning g j via GI daughter wants close attention to wounds and management to ensure healing Evidence of left lower lobe pneumonia, also previously demonstrated Gastrostomy in good position Mild diastasis of the rectus abdominis musculature again demonstrated Retrosacral decubitus changes, better depicted on prior exam which included the pelvis Small hiatal hernia with evidence of trace gastroesophageal reflux Discussed with GI. Recommend GJ family still pending decision transfuse prbc prn monitor h/h monitor bm LFTs improving trending down (3) Feeding by G-tube Assessment & Plan: DAILY ESTIMATED NEEDS: Needs based on Pulmonary, wounds, bedbound/ 61kg adj 25-30 kcals/kg [id number] total kcals 1.25-2 g protein/kg 76-122 g total protein 25-30 mL/kg [id number] total fluid mLs NUTRITION DIAGNOSIS: * Increased kcal/prot needs R/T wound healing as evidenced by BL buttocks and sacral wound photos, refer to eval. * Swallowing difficulty R/T respiratory status as evidenced by pt on T-collar, s/p G-J conversion CURRENT TF:Glucerna 1.5 @ 50ml/hr x 24 hrs ENTERAL NUTRITION RECOMMENDATIONS: Glucerna 1.5 @ 50ml/hr x 24 hrs to provide 1200ml, 1800 kcal, 99g pro, 911ml free H2O - Maintain at current rate as tolerated to meet 100% est needs - HOB over 30 degrees - INCREASE water flush of 170ml q 6 hrs ADDITIONAL RECOMMENDATIONS: 1) RE-calibrate bedscale wt: fluctuating daily wts (108#-136# last 6 days) 2) Wound healing: Add Cristian 1pkt BID w/ continued good TF tolerance. 3) Increase water flushes, monitor for signs of water deficits 4) Monitor BGs closely, need for NISS -> now w/ improved BGs 5) Monitor for continued good TF tolerance 6) Monitor K : elev K on 03/25, s/p Kdur BID, now dc'ed. (4) Chronic vegetative state Assessment & Plan: incontinence of urine and stool. can soil dressings. nurses doing great job with monitoring and changing prn (5) Leukocytosis Walter Madera Apr 19, 2019 15:32
[2019-04-19] MEDS ORDERED: NS 275ml ONE (15:53)
--- NOTE | 2019-04-19 16:55 | NUR ---
NURSE NOTES: Pt had BM x1, soft/brown. Pt was cleaned, dressings were changed. Gown/bed linens were changed, and pt was repositioned. VS remain stable. Pt is tolerating tube feeding well with no noted residual.
--- NOTE | 2019-04-19 19:18 | General Progress Note ---
Assessment/Plan Status: stable, progressing Assessment/Plan: Assessment - N/V - resolved with G --> J conversion - constipation - partly due to low residue formula used, good response to sorbitol - Elevated Alk phos / LFT - CT negative - abd U/S negative - check hepatitis serologies - negative - possibly MURRAY / Fatty liver - will periodically monitor - Anemia with OB (-) stools - Resp failure, s/p Trach - dysphagia, s/p PEG --> GJ tube - OBS, vegetative obtunded unresponsive state, bedbound with contracted extremities, - h/o minor GJ tube site irritation - Early J port occlusion, possibly due to thick diabetic TF formula - Elevated glucose - elevated BUN/Cr - poor Prognosis Recommendations - daily sorbitol, and PRN sorbitol - Follow BUN/Cr - Cristian BID - antibiotic ointment to GJT site PRN - aspiration precautions - elevate HOB - Vital AF 1.2 - check q 6 hour FS - transfuse to keep Hg > 7 - J tube feeds - G tube drain Subjective Allergies: Coded Allergies: CODEINE (Verified Allergy, Unknown, HIVES, 09/15/09) Subjective above noted tolerating TF via J port d/w RN (+) BM Objective Last 24 Hour Vital Signs Date Time Temp Pulse Resp B/P (MAP) Pulse Ox O2 Delivery O2 Flow Rate FiO2 04/19/19 19:12 98 T-Piece 5.0 28 04/19/19 19:11 82 27 100 T-Piece 5.0 28 81 26 98 04/19/19 19:00 85 26 123/50 (74) 96 04/19/19 18:00 84 24 123/44 (70) 97 04/19/19 17:00 84 24 130/39 (69) 100 04/19/19 16:00 84 04/19/19 16:00 T-piece 5.0 T-piece 5.0 04/19/19 16:00 5.0 28 04/19/19 16:00 98.2 84 21 124/36 (65) 100 04/19/19 15:01 82 27 100 T-Piece 5.0 28 83 27 99 04/19/19 15:00 83 22 125/36 (65) 100 04/19/19 14:00 81 20 126/34 (64) 100 04/19/19 13:00 81 20 131/33 (65) 100 04/19/19 13:00 100 T-Piece 5.0 28 04/19/19 12:00 5.0 28 04/19/19 12:00 98.5 83 21 93/21 (45) 98 04/19/19 12:00 T-piece 5.0 T-piece 5.0 04/19/19 12:00 83 04/19/19 11:05 84 23 100 T-Piece 5.0 28 89 24 99 04/19/19 11:00 81 20 113/32 (59) 100 04/19/19 10:00 77 20 118/42 (67) 100 04/19/19 09:00 74 21 116/32 (60) 100 04/19/19 08:00 98.2 77 19 119/25 (56) 99 04/19/19 08:00 5.0 28 04/19/19 08:00 95 04/19/19 08:00 T-piece 5.0 T-piece 5.0 04/19/19 07:30 82 18 142/110 (121) 100 04/19/19 07:22 78 22 100 T-Piece 5.0 28 80 23 100 04/19/19 07:22 80 23 100 T-Piece 5.0 28 04/19/19 07:22 100 T-Piece 5.0 28 04/19/19 07:00 75 21 102/22 (48) 100 04/19/19 06:30 74 20 115/36 (62) 100 04/19/19 06:00 77 19 118/33 (61) 100 04/19/19 05:00 75 19 114/36 (62) 100 04/19/19 04:30 79 18 117/36 (63) 100 04/19/19 04:00 T-piece 5.0 T-piece 5.0 04/19/19 04:00 82 04/19/19 04:00 5.0 28 04/19/19 04:00 98.2 89 18 129/65 (86) 100 04/19/19 03:30 87 20 111/92 (98) 100 04/19/19 03:00 77 20 119/25 (56) 100 04/19/19 02:54 83 20 100 T-Piece 6.0 28 80 21 100 04/19/19 02:30 79 22 117/40 (65) 100 04/19/19 02:00 80 22 104/37 (59) 100 04/19/19 01:06 100 T-Piece 6.0 28 04/19/19 01:00 82 23 95/27 (49) 98 04/19/19 00:00 5.0 28 04/19/19 00:00 T-piece 5.0 T-piece 5.0 04/19/19 00:00 98.0 83 23 103/34 (57) 97 04/19/19 00:00 83 04/18/19 23:30 84 22 132/109 (117) 100 04/18/19 23:23 87 22 100 T-Piece 6.0 28 84 23 99 04/18/19 23:00 82 23 146/42 (76) 100 04/18/19 22:00 83 22 113/32 (59) 98 04/18/19 21:30 85 22 105/41 (62) 97 04/18/19 21:00 85 21 94/40 (58) 96 04/18/19 20:30 82 21 112/25 (54) 99 04/18/19 20:00 83 04/18/19 20:00 T-piece 5.0 T-piece 5.0 04/18/19 20:00 97.9 82 21 104/34 (57) 98 04/18/19 20:00 5.0 28 04/18/19 19:32 97 T-Piece 6.0 28 04/18/19 19:29 87 21 100 T-Piece 6.0 28 85 22 97 Intake and Output 04/18/19 04/19/19 19:00 07:00 Intake Total 855 ml 1020 ml Output Total 590 ml 1300 ml Balance 265 ml -280 ml Free Water 135 ml Tube Feeding 720 ml 720 ml Other 300 ml Output Urine Total 390 ml 600 ml Gastric Drainage Total 200 ml 700 ml Laboratory Tests 04/19/19 09:26: White Blood Count 10.2, Red Blood Count 3.56L, Hemoglobin 10.7L, Hematocrit 32.5L, Mean Corpuscular Volume 91, Mean Corpuscular Hemoglobin 30.0, Mean Corpuscular Hemoglobin Concent 32.9, Red Cell Distribution Width 15.2H, Platelet Count 187, Mean Platelet Volume 5.8L, Neutrophils (%) (Auto) 61.7, Lymphocytes (%) (Auto) 30.3, Monocytes (%) (Auto) 4.2, Eosinophils (%) (Auto) 3.4H, Basophils (%) (Auto) 0.5, Sodium Level 146H, Potassium Level 4.2, Chloride Level 109H, Carbon Dioxide Level 29, Anion Gap 8, Blood Urea Nitrogen 52H, Creatinine 0.9, Estimat Glomerular Filtration Rate , Glucose Level 104, Calcium Level 9.3, Magnesium Level 2.3, Total Bilirubin 0.2, Aspartate Amino Transf (AST/SGOT) 43H, Alanine Aminotransferase (ALT/SGPT) 107H, Alkaline Phosphatase 125H, Total Protein 8.6H, Albumin 3.2L, Globulin 5.4, Albumin/ Globulin Ratio 0.6L Height (Feet): 5 Height (Inches): 3.00 Weight (Pounds): 125 Objective Debilitated AA woman non-verbal, obtunded NCAT (+) trach coarse BS RR obese abd, (+) GJT no edema (+) contractured extremities Celio Vaughan MD Apr 19, 2019 19:18
--- NOTE | 2019-04-19 19:19 | NUR ---
HAND-OFF: Report given to Umm PAEZ/Deana PAEZ. Endorsed plan of care.
--- NOTE | 2019-04-19 19:30 | NUR ---
NURSE NOTES: Received patient from JEANNINE Rodriguez. Patient awake with eyes open. no s/s of acute distress noted. Patient arousable to name but does not track or communicate. Patient trach to T piece with 28% FIO2, satting 100%. Right upper arm PICC line that is patent. Dressing dry and intact. Patient has gastrostomy/jejunostomy tube is intact, running tube feeding of vital AF at 65mL/hr through the J-tube and draining to gravity from the G-tube. HOB elevated. Optifoam dressing intact on sacral and bilateral heels. Bilateral heels elevated with pillows. Patient on low air loss mattress for wound management. Patient clean and dry. Patient bed in low position with bed alarm on and call light in reach at this time. Contact isolation maintained and observed. will continue plan of care.
[2019-04-19] MEDS: Dyna-Hex 2% Top Sol 2oz TOPIC SCH (20:09)
--- NOTE | 2019-04-19 20:43 | NUR ---
NURSE NOTES: Daughter at bedside.
--- NOTE | 2019-04-19 22:43 | NUR ---
NURSE NOTES: Patient in bed with eyes open, TV therapy provided.Daughter at bedside. No s/s of acute distress noted. Oral care and suctioned patient. Repositioned for comfort. Pure wick connected to low intermittent suction, draining. HOB elevated. no s/s of hypo/hyperglycemia. Contact isolation maintained and observed. will continue plan of care.
[2019-04-20] VITALS (28 sets, daily range): BP systolic 101–158; BP diastolic 18–84
--- NOTE | 2019-04-20 00:22 | NUR ---
NURSE NOTES: Patient sleeping comfortably. No s/s of acute distress noted. Oral care and suctioned patient. Repositioned for comfort. Pure wick connected to low intermittent suction, draining. HOB elevated. no s/s of hypo/hyperglycemia. Contact isolation maintained and observed. will continue plan of care.
--- NOTE | 2019-04-20 01:15 | Progress Note ---
DATE: 04/19/2019 CARDIOLOGY PROGRESS NOTE SUBJECTIVE: Status quo. Blood pressure was high with increased pulse, pressure, and low diastolic readings. Monitored sinus. OBJECTIVE: LUNGS: Few rhonchi. CARDIAC: Regular rhythm and rate. ABDOMEN: Soft. GJ tube site appears intact. EXTREMITIES: No edema. LABORATORY DATA: White count 10 and hemoglobin 10.7 today. Chemistry, sodium 146, potassium 4.2, bicarb 29, BUN 52, and creatinine 0.9. IMPRESSION: 1. No signs of aortic insufficiency. 2. Mild dehydration. 3. ____. 4. Prerenal azotemia, improved. 5. Chronic diastolic congestive heart failure. 6. Respiratory failure with T-tube. PLAN: 1. Additional free water replacement. 2. Other therapy without change from the cardiovascular standpoint. Bg Hagen M.D. DR: GRACE JOB#: [id number] CC:
--- NOTE | 2019-04-20 02:22 | NUR ---
NURSE NOTES: Patient in bed sleeping comfortably. no moaning no facial grimaces. no s/s of acute distress noted. no s/s of hypo/hyperglycemia, Repositioned in bed. HOB elevated. Suctioned patient. Frequent visual checks continued. will continue plan of care.
[2019-04-20] MEDS: Albuterol/Ipratropium 3ml neb HHN SCH ×6 (03:02→23:36)
--- NOTE | 2019-04-20 07:03 | NUR ---
HAND-OFF: Report given to Maria Eugenia PAEZ.
--- NOTE | 2019-04-20 07:05 | NUR ---
NURSE NOTES: Received report from JEANNINE Salomon. Observed patient in bed, nonverbal, obtunded. On T-Piece @ 5L, 28%, saturating 98%. No acute distress noted. 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 JT intact and patent, TF infusing at prescribed rate, GT draining to gravity. HOB elevated. Right upper arm PICC line intact and patent. Safety precautions in place; bed locked, alarmed, and in lowest position, side rails up x2, and call light left within reach. Will continue plan of care and will continue to monitor patient.
--- NOTE | 2019-04-20 07:51 | NUR ---
NURSE NOTES: Dr Beltrán present at bedside, no new orders received at this time. Will continue to monitor patient.
--- NOTE | 2019-04-20 07:56 | General Progress Note ---
Assessment/Plan Problem List: (1) Seizure ICD Codes: R56.9 - Unspecified convulsions SNOMED: 03109711 (2) Anemia ICD Codes: D64.9 - Anemia, unspecified SNOMED: 834129025 Qualifiers: Qualified Codes: D64.9 - Anemia, unspecified (3) Sepsis ICD Codes: A41.9 - Sepsis, unspecified organism SNOMED: 07101034, 336829351 Qualifiers: Qualified Codes: A41.9 - Sepsis, unspecified organism (4) Respiratory failure with hypoxia ICD Codes: J96.91 - Respiratory failure, unspecified with hypoxia SNOMED: 41077258117563014 Qualifiers: Qualified Codes: J96.21 - Acute and chronic respiratory failure with hypoxia (5) HCAP (healthcare-associated pneumonia) ICD Codes: J18.9 - Pneumonia, unspecified organism SNOMED: 932239041, 226493591 (6) Sacral decubitus ulcer ICD Codes: L89.159 - Pressure ulcer of sacral region, unspecified stage SNOMED: 255700841 (7) HTN (hypertension) ICD Codes: I10 - Essential (primary) hypertension SNOMED: 63976118 (8) Chronic vegetative state ICD Codes: R40.3 - Persistent vegetative state SNOMED: 18522480 (9) Chronic respiratory failure ICD Codes: J96.10 - Chronic respiratory failure, unspecified whether with hypoxia or hypercapnia SNOMED: 31872777 (10) Limited mobility ICD Codes: Z74.09 - Other reduced mobility SNOMED: 7182550 Status: stable, progressing Assessment/Plan: vent as needed resp rx suctioning j tube feeds g port to gravity skin care sz rx check labs/monitor Na level bowel regime dc planning Subjective ROS Limited/Unobtainable: No Constitutional: Reports: malaise, weakness HEENT: Reports: no symptoms Cardiovascular: Reports: no symptoms Respiratory: Reports: cough, shortness of breath, sputum Gastrointestinal/Abdominal: Reports: difficulty swallowing Genitourinary: Reports: no symptoms Neurologic/Psychiatric: Reports: pre-existing deficit, seizure Endocrine: Reports: no symptoms Hematologic/Lymphatic: Reports: no symptoms Allergies: Coded Allergies: CODEINE (Verified Allergy, Unknown, HIVES, 09/15/09) All Systems: reviewed and negative except above Subjective no events. no reports of bleeding. tolerating feeds, no vomiting. minimal secretions. no szs Objective Last 24 Hour Vital Signs Date Time Temp Pulse Resp B/P (MAP) Pulse Ox O2 Delivery O2 Flow Rate FiO2 04/20/19 07:13 100 T-Piece 6.0 28 04/20/19 07:12 87 17 100 T-Piece 5.0 28 86 24 100 04/20/19 07:00 86 20 116/44 (68) 100 04/20/19 07:00 86 20 116/44 (68) 100 04/20/19 06:30 90 22 144/38 (73) 100 04/20/19 06:00 83 22 115/27 (56) 100 04/20/19 05:00 85 23 132/49 (76) 100 04/20/19 04:00 83 04/20/19 04:00 98.2 83 20 127/32 (63) 99 04/20/19 04:00 T-piece 5.0 T-piece 5.0 04/20/19 04:00 5.0 28 04/20/19 03:30 84 22 123/27 (59) 99 04/20/19 03:02 86 24 100 T-Piece 5.0 28 82 22 100 04/20/19 03:00 82 21 120/45 (70) 99 04/20/19 02:00 83 25 112/49 (70) 98 04/20/19 01:30 82 25 120/32 (61) 99 04/20/19 01:03 100 T-Piece 6.0 28 04/20/19 01:00 80 26 128/34 (65) 98 04/20/19 00:30 82 23 109/49 (69) 99 04/20/19 00:00 T-piece 5.0 T-piece 5.0 04/20/19 00:00 5.0 28 04/20/19 00:00 98.0 85 23 111/49 (69) 97 04/20/19 00:00 85 04/19/19 23:30 84 22 116/50 (72) 97 04/19/19 23:07 85 21 99 T-Piece 5.0 28 85 24 99 04/19/19 23:00 83 22 114/48 (70) 97 04/19/19 22:00 83 26 110/50 (70) 98 04/19/19 21:30 85 22 114/41 (65) 97 04/19/19 21:00 84 24 117/28 (57) 98 04/19/19 20:00 T-piece 5.0 T-piece 5.0 04/19/19 20:00 98.2 85 24 123/38 (66) 99 04/19/19 20:00 5.0 28 04/19/19 20:00 84 04/19/19 19:12 98 T-Piece 6.0 28 04/19/19 19:11 82 27 100 T-Piece 5.0 28 81 26 98 04/19/19 19:00 85 26 123/50 (74) 96 04/19/19 18:00 84 24 123/44 (70) 97 04/19/19 17:00 84 24 130/39 (69) 100 04/19/19 16:00 84 04/19/19 16:00 T-piece 5.0 T-piece 5.0 04/19/19 16:00 5.0 28 04/19/19 16:00 98.2 84 21 124/36 (65) 100 04/19/19 15:01 82 27 100 T-Piece 5.0 28 83 27 99 04/19/19 15:00 83 22 125/36 (65) 100 04/19/19 14:00 81 20 126/34 (64) 100 04/19/19 13:00 81 20 131/33 (65) 100 04/19/19 13:00 100 T-Piece 5.0 28 04/19/19 12:00 5.0 28 04/19/19 12:00 98.5 83 21 93/21 (45) 98 04/19/19 12:00 T-piece 5.0 T-piece 5.0 04/19/19 12:00 83 04/19/19 11:05 84 23 100 T-Piece 5.0 28 89 24 99 04/19/19 11:00 81 20 113/32 (59) 100 04/19/19 10:00 77 20 118/42 (67) 100 04/19/19 09:00 74 21 116/32 (60) 100 04/19/19 08:00 98.2 77 19 119/25 (56) 99 04/19/19 08:00 5.0 28 04/19/19 08:00 95 04/19/19 08:00 T-piece 5.0 T-piece 5.0 Intake and Output 04/19/19 04/20/19 19:00 07:00 Intake Total 880 ml 1470 ml Output Total 1500 ml 1000 ml Balance -620 ml 470 ml Free Water 160 ml IV Total 450 ml Tube Feeding 720 ml 720 ml Other 300 ml Output Urine Total 1000 ml 400 ml Gastric Drainage Total 500 ml 600 ml # Bowel Movements 1 Laboratory Tests 04/19/19 09:26: White Blood Count 10.2, Red Blood Count 3.56L, Hemoglobin 10.7L, Hematocrit 32.5L, Mean Corpuscular Volume 91, Mean Corpuscular Hemoglobin 30.0, Mean Corpuscular Hemoglobin Concent 32.9, Red Cell Distribution Width 15.2H, Platelet Count 187, Mean Platelet Volume 5.8L, Neutrophils (%) (Auto) 61.7, Lymphocytes (%) (Auto) 30.3, Monocytes (%) (Auto) 4.2, Eosinophils (%) (Auto) 3.4H, Basophils (%) (Auto) 0.5, Sodium Level 146H, Potassium Level 4.2, Chloride Level 109H, Carbon Dioxide Level 29, Anion Gap 8, Blood Urea Nitrogen 52H, Creatinine 0.9, Estimat Glomerular Filtration Rate , Glucose Level 104, Calcium Level 9.3, Magnesium Level 2.3, Total Bilirubin 0.2, Aspartate Amino Transf (AST/SGOT) 43H, Alanine Aminotransferase (ALT/SGPT) 107H, Alkaline Phosphatase 125H, Total Protein 8.6H, Albumin 3.2L, Globulin 5.4, Albumin/ Globulin Ratio 0.6L Height (Feet): 5 Height (Inches): 3.00 Weight (Pounds): 125 Objective General Appearance: WD/WN, confused. on trach collar Neck: supple Cardiovascular: normal rate, regular rhythm Respiratory/Chest: chest wall non-tender, rhonchi - bilaterally(minimal) Abdomen: normal bowel sounds, non tender, soft, no organomegaly Edema: no edema noted Arm (L), no edema noted Arm (R), no edema noted Leg (L), no edema noted Leg (R), no edema noted Pedal (L), no edema noted Pedal (R), no edema noted Generalized Neurologic: disoriented, unresponsive, aphasia Irvin Beltrán MD Apr 20, 2019 07:56
--- NOTE | 2019-04-20 08:04 | Pulmonology Progress Note ---
Assessment/Plan Assessment/Plan Impression: history of Sepsis history of Pneumonia Trach, G tube, Hypertension, Cardiac disease, Dementia, Previous CVA, Seizure disorder, Respiratory failure with hypoxia Anemia, Sacral ulcer renal cyst chronic pulmonary congestion Plan monitor for change in resp status off vent needs suctioning oxygen low flow aspiration precautions to continue elevate head and monitor secretions DNR. No CPR. ICU care reviewed meds noted off load as able nutrition monitor residual and reflux aspiration all changes noted and discussed chronic management reviewed medications/laboratory data/nursing notes/ICU care reviewed in detail note reviewed and edited care discussed with RN and RT Subjective Allergies: Coded Allergies: CODEINE (Verified Allergy, Unknown, HIVES, 09/15/09) Subjective overnight events noted; respiratory status reviewed concerns reviewed bed bound and obtunded ICU care issues discussed bed bound and obtunded meds reviewed Objective Last 24 Hour Vital Signs Date Time Temp Pulse Resp B/P (MAP) Pulse Ox O2 Delivery O2 Flow Rate FiO2 04/20/19 07:13 100 T-Piece 6.0 28 04/20/19 07:12 87 17 100 T-Piece 5.0 28 86 24 100 04/20/19 07:00 86 20 116/44 (68) 100 04/20/19 07:00 86 20 116/44 (68) 100 04/20/19 06:30 90 22 144/38 (73) 100 04/20/19 06:00 83 22 115/27 (56) 100 04/20/19 05:00 85 23 132/49 (76) 100 04/20/19 04:00 83 04/20/19 04:00 98.2 83 20 127/32 (63) 99 04/20/19 04:00 T-piece 5.0 T-piece 5.0 04/20/19 04:00 5.0 28 04/20/19 03:30 84 22 123/27 (59) 99 04/20/19 03:02 86 24 100 T-Piece 5.0 28 82 22 100 04/20/19 03:00 82 21 120/45 (70) 99 04/20/19 02:00 83 25 112/49 (70) 98 04/20/19 01:30 82 25 120/32 (61) 99 04/20/19 01:03 100 T-Piece 6.0 28 04/20/19 01:00 80 26 128/34 (65) 98 04/20/19 00:30 82 23 109/49 (69) 99 04/20/19 00:00 T-piece 5.0 T-piece 5.0 04/20/19 00:00 5.0 28 04/20/19 00:00 98.0 85 23 111/49 (69) 97 04/20/19 00:00 85 04/19/19 23:30 84 22 116/50 (72) 97 04/19/19 23:07 85 21 99 T-Piece 5.0 28 85 24 99 04/19/19 23:00 83 22 114/48 (70) 97 04/19/19 22:00 83 26 110/50 (70) 98 04/19/19 21:30 85 22 114/41 (65) 97 04/19/19 21:00 84 24 117/28 (57) 98 04/19/19 20:00 T-piece 5.0 T-piece 5.0 04/19/19 20:00 98.2 85 24 123/38 (66) 99 04/19/19 20:00 5.0 28 04/19/19 20:00 84 04/19/19 19:12 98 T-Piece 6.0 28 04/19/19 19:11 82 27 100 T-Piece 5.0 28 81 26 98 04/19/19 19:00 85 26 123/50 (74) 96 04/19/19 18:00 84 24 123/44 (70) 97 04/19/19 17:00 84 24 130/39 (69) 100 04/19/19 16:00 84 04/19/19 16:00 T-piece 5.0 T-piece 5.0 04/19/19 16:00 5.0 28 04/19/19 16:00 98.2 84 21 124/36 (65) 100 04/19/19 15:01 82 27 100 T-Piece 5.0 28 83 27 99 04/19/19 15:00 83 22 125/36 (65) 100 04/19/19 14:00 81 20 126/34 (64) 100 04/19/19 13:00 81 20 131/33 (65) 100 04/19/19 13:00 100 T-Piece 5.0 28 04/19/19 12:00 5.0 28 04/19/19 12:00 98.5 83 21 93/21 (45) 98 04/19/19 12:00 T-piece 5.0 T-piece 5.0 04/19/19 12:00 83 04/19/19 11:05 84 23 100 T-Piece 5.0 28 89 24 99 04/19/19 11:00 81 20 113/32 (59) 100 04/19/19 10:00 77 20 118/42 (67) 100 04/19/19 09:00 74 21 116/32 (60) 100 Intake and Output 04/19/19 04/20/19 19:00 07:00 Intake Total 880 ml 1470 ml Output Total 1500 ml 1000 ml Balance -620 ml 470 ml Free Water 160 ml IV Total 450 ml Tube Feeding 720 ml 720 ml Other 300 ml Output Urine Total 1000 ml 400 ml Gastric Drainage Total 500 ml 600 ml # Bowel Movements 1 Objective WDWN NAD contracted off vent reduced breath sounds bilaterally without rhonchi or wheeze [id number] without MRG NABS nontender no HSM no CC trace edema same nonfocal nonverbal trach and gt reviewed and edited Laboratory Tests 04/19/19 09:26: White Blood Count 10.2, Red Blood Count 3.56L, Hemoglobin 10.7L, Hematocrit 32.5L, Mean Corpuscular Volume 91, Mean Corpuscular Hemoglobin 30.0, Mean Corpuscular Hemoglobin Concent 32.9, Red Cell Distribution Width 15.2H, Platelet Count 187, Mean Platelet Volume 5.8L, Neutrophils (%) (Auto) 61.7, Lymphocytes (%) (Auto) 30.3, Monocytes (%) (Auto) 4.2, Eosinophils (%) (Auto) 3.4H, Basophils (%) (Auto) 0.5, Sodium Level 146H, Potassium Level 4.2, Chloride Level 109H, Carbon Dioxide Level 29, Anion Gap 8, Blood Urea Nitrogen 52H, Creatinine 0.9, Estimat Glomerular Filtration Rate , Glucose Level 104, Calcium Level 9.3, Magnesium Level 2.3, Total Bilirubin 0.2, Aspartate Amino Transf (AST/SGOT) 43H, Alanine Aminotransferase (ALT/SGPT) 107H, Alkaline Phosphatase 125H, Total Protein 8.6H, Albumin 3.2L, Globulin 5.4, Albumin/ Globulin Ratio 0.6L Current Medications Medications (Trade) Dose Ordered Sig/Maicol Route PRN Reason Start Time Stop Time Status Last Admin Dose Admin Acetaminophen (Tylenol) 650 mg Q6H PRN GT Mild Pain/Temp > 100.5 03/23/19 15:15 04/22/19 15:14 04/15/19 22:23 Atropine Sulfate (Atropine Opth Adriana) 1 drop THREE TIMES A DAY SL 04/08/19 09:00 05/07/19 20:59 04/19/19 17:16 Chlorhexidine Gluconate (Cesilia-Hex 2%) 1 applic DAILY@1999 TOPIC 04/12/19 20:00 05/12/19 19:59 04/19/19 20:09 Folic Acid (Folate) 1 mg DAILY GT 04/08/19 09:00 05/08/19 08:59 04/19/19 09:38 Heparin Sodium (Porcine) (Heparin 5000 units/ml) 5,000 units EVERY 12 HOURS SUBQ 04/01/19 10:00 05/01/19 09:59 04/19/19 20:14 Hydralazine HCl (Apresoline) 25 mg Q6H PRN ORAL SBP above 150 04/06/19 02:45 05/06/19 02:44 04/06/19 11:15 Lansoprazole (Prevacid) 30 mg Q12HR GT 03/29/19 09:00 04/24/19 20:59 04/19/19 20:13 Levetiracetam (Keppra) 750 mg Q12HR GT 04/07/19 21:00 05/07/19 20:59 04/19/19 20:12 Sorbitol (Sorbitol) 30 ml BIDPRN PRN ORAL Constipation 04/13/19 11:15 05/13/19 11:14 Sorbitol (sorbitoL) 30 ml DAILY GT 04/14/19 09:00 05/14/19 08:59 04/19/19 09:38 Amaury Chan MD Apr 20, 2019 08:04
--- NOTE | 2019-04-20 08:13 | NUR ---
NURSE NOTES: Provided patient with oral care and suction; repositioned, patient tolerated well. Flushed JGtube as ordered. VSS at this time. No s/s of pain/discomfort. Will continue to monitor patient.
[2019-04-20] MEDS: Sorbitol Solution UD 30ml GT SCH (09:04)
[2019-04-20] MEDS: Heparin 5000 units/ml inj SUBQ SCH ×2 (09:14→20:48)
--- NOTE | 2019-04-20 10:00 | NUR ---
NURSE NOTES: AM meds administered. Provided oral care and patient was suctioned orally and via trach T-piece; moderate amount of thick white secretions noted. Patient tolerated well. No acute distress at this time. Pt was repositioned. VSS. Dr Vaughan at bedside, no new orders. Will continue to monitor patient.
[2019-04-20 10:39] LABS: ALANINE AMINOTRANSFERASE 96 U/L (12-78); ALBUMIN 3.1 G/DL (3.4-5.0); ALBUMIN/GLOBULIN RATIO 0.6 (1.0-2.7); ALKALINE PHOSPHATASE 151 U/L (46-116); ANION GAP 10 mmol/L (5-15); ASPARTATE AMINO TRANSFERASE 37 U/L (15-37); BILIRUBIN,TOTAL 0.2 MG/DL (0.2-1.0); BLOOD UREA NITROGEN 58 mg/dL (7-18); CALCIUM 8.9 MG/DL (8.5-10.1); CARBON DIOXIDE 26 MMOL/L (21-32); CHLORIDE 108 MMOL/L (98-107); CREATININE 0.9 MG/DL (0.55-1.30); POTASSIUM 4.5 MMOL/L (3.5-5.1); SODIUM 144 MMOL/L (136-145)
--- NOTE | 2019-04-20 11:21 | Surgery Progress Note ---
Surgery Progress Note Subjective Symptoms: other Objective Last 24 Hour Vital Signs Date Time Temp Pulse Resp B/P (MAP) Pulse Ox O2 Delivery O2 Flow Rate FiO2 04/20/19 11:00 80 21 116/46 (69) 100 04/20/19 10:00 86 22 106/23 (50) 100 04/20/19 09:00 85 22 124/32 (62) 100 04/20/19 08:00 5.0 28 04/20/19 08:00 86 22 107/39 (61) 98 04/20/19 08:00 88 04/20/19 08:00 T-piece 5.0 T-piece 5.0 04/20/19 07:13 100 T-Piece 6.0 28 04/20/19 07:12 87 17 100 T-Piece 5.0 28 86 24 100 04/20/19 07:00 86 20 116/44 (68) 100 04/20/19 07:00 86 20 116/44 (68) 100 04/20/19 06:30 90 22 144/38 (73) 100 04/20/19 06:00 83 22 115/27 (56) 100 04/20/19 05:00 85 23 132/49 (76) 100 04/20/19 04:00 83 04/20/19 04:00 98.2 83 20 127/32 (63) 99 04/20/19 04:00 T-piece 5.0 T-piece 5.0 04/20/19 04:00 5.0 28 04/20/19 03:30 84 22 123/27 (59) 99 04/20/19 03:02 86 24 100 T-Piece 5.0 28 82 22 100 04/20/19 03:00 82 21 120/45 (70) 99 04/20/19 02:00 83 25 112/49 (70) 98 04/20/19 01:30 82 25 120/32 (61) 99 04/20/19 01:03 100 T-Piece 6.0 28 04/20/19 01:00 80 26 128/34 (65) 98 04/20/19 00:30 82 23 109/49 (69) 99 04/20/19 00:00 T-piece 5.0 T-piece 5.0 04/20/19 00:00 5.0 28 1/20/20 00:00 98.0 85 23 111/49 (69) 97 04/20/19 00:00 85 04/19/19 23:30 84 22 116/50 (72) 97 04/19/19 23:07 85 21 99 T-Piece 5.0 28 85 24 99 04/19/19 23:00 83 22 114/48 (70) 97 04/19/19 22:00 83 26 110/50 (70) 98 04/19/19 21:30 85 22 114/41 (65) 97 04/19/19 21:00 84 24 117/28 (57) 98 04/19/19 20:00 T-piece 5.0 T-piece 5.0 04/19/19 20:00 98.2 85 24 123/38 (66) 99 04/19/19 20:00 5.0 28 04/19/19 20:00 84 04/19/19 19:12 98 T-Piece 6.0 28 04/19/19 19:11 82 27 100 T-Piece 5.0 28 81 26 98 04/19/19 19:00 85 26 123/50 (74) 96 04/19/19 18:00 84 24 123/44 (70) 97 04/19/19 17:00 84 24 130/39 (69) 100 04/19/19 16:00 84 04/19/19 16:00 T-piece 5.0 T-piece 5.0 04/19/19 16:00 5.0 28 04/19/19 16:00 98.2 84 21 124/36 (65) 100 04/19/19 15:01 82 27 100 T-Piece 5.0 28 83 27 99 04/19/19 15:00 83 22 125/36 (65) 100 04/19/19 14:00 81 20 126/34 (64) 100 04/19/19 13:00 81 20 131/33 (65) 100 04/19/19 13:00 100 T-Piece 5.0 28 04/19/19 12:00 5.0 28 04/19/19 12:00 98.5 83 21 93/21 (45) 98 04/19/19 12:00 T-piece 5.0 T-piece 5.0 04/19/19 12:00 83 I&O Intake and Output 04/19/19 04/20/19 19:00 07:00 Intake Total 880 ml 1470 ml Output Total 1500 ml 1000 ml Balance -620 ml 470 ml Free Water 160 ml IV Total 450 ml Tube Feeding 720 ml 720 ml Other 300 ml Output Urine Total 1000 ml 400 ml Gastric Drainage Total 500 ml 600 ml # Bowel Movements 1 Dressing: other Wound: other Drains: other Cardiovascular: RSR Respiratory: decreased breath sounds Abdomen: soft, present bowel sounds Extremities: no cyanosis Laboratory Tests Test 04/20/19 09:30 Sodium Level 144 MMOL/L (136-145) Potassium Level 4.5 MMOL/L (3.5-5.1) Chloride Level 108 MMOL/L (98-107) H Carbon Dioxide Level 26 MMOL/L (21-32) Anion Gap 10 mmol/L (5-15) Blood Urea Nitrogen 58 mg/dL (7-18) H Creatinine 0.9 MG/DL (0.55-1.30) Estimat Glomerular Filtration Rate mL/min (>60) Glucose Level 115 MG/DL (74-106) H Calcium Level 8.9 MG/DL (8.5-10.1) Total Bilirubin 0.2 MG/DL (0.2-1.0) Aspartate Amino Transf (AST/SGOT) 37 U/L (15-37) Alanine Aminotransferase (ALT/SGPT) 96 U/L (12-78) H Alkaline Phosphatase 151 U/L (46-116) H Total Protein 8.4 G/DL (6.4-8.2) H Albumin 3.1 G/DL (3.4-5.0) L Globulin 5.3 g/dL Albumin/Globulin Ratio 0.6 (1.0-2.7) L Plan Problems: (1) Sacral decubitus ulcer Assessment & Plan: This is a 83-year-old female with multiple medical committees that is currently admitted for medical care and management and identified to have multiple wounds requiring care. On admission patient noted to have a resolved sacral decubitus ulcer. Has had prior care and is well-healed at this time. Will ensure it does not open up again. Patient has a right ischial decubitus ulcer that is resolved. Scar intact and well formed. Will monitor to ensure it does not open up again. Patient has a left ischial decubitus ulcer that can be identified to be stage IV with palpable bone that has been resolving as noted by the periwound tissue and scar but open area approximately 1 cm x 1.5 cm few millimeters deep to bone identified. Unsure if this is been to be completely healed prior and has since opened or if has been healing at this level. No foul odor no drainage was unsure local wound care until healed Bilateral heels soft without signs of injury Resolving pressure injury L ischium(L)1.8cm x (W)1cm.Scattered biofilm at base of wound. Edges flat and adherent with surrounding hyperpigmentation. No odor or exudate noted. Sacrum is pale pink with surrounding hyperpigmentation. Hyperpigmentation R ischium with small sheared area centrally.No areas of erythema or exudate noted. Both heels are soft but blanchable. Skin Assessed under collar of trach and no evidence of skin breakdown noted. All wound Tx. are effective and continued as ordered. Pt ahs an APM/Belén mattress overlay and is being repositioned per protocols and per tolerance.No new skin concerns noted. Full thickness pressure injury L Ischium with small amt biofilm (L)1.8cm x (W) 1cm. Surrounding pink hyperpigmentation. No odor or exudate noted. Thorp hyperpigmentation from previous wound noted to sacrum. Pt also noted to have Cat 2 Skin Tear dorsal L hand, L 5th metatarsal extending into palm of hand. 80% skin flap in situ.Both heels are dry firm and blanchable. No other skin concerns noted. R ischial wound has resolved. Thorp epithelial with surrounding hyperpigmentation. from historical wound. Full thickness pressure injury L ischium. Thorp granulation at base of wound. Borders are macerated with Surrounding hyperpigmentation.Small amt non-odorous serous exudate noted.(L)0.7cm x (W)0.8cm. Skin hyperpigmentation from historical wound noted to Sacrum. Small sheared area noted to sacrococcygeal area.(L)0.4cm x (W)0.3cm.Small amt sanguineous exudate noted. Reabsorbed blister with semi-detached dry necrotic cap noted to web space of L thumb and L index fingers extending into palm of L hand. No odor or exudate noted. Skin assessed under tracheal collar and no erythema or evidence of Skin Breakdown noted. NO new skin concerns noted . Good hand hygiene provided to both hands. R hand contracted and fisted. Fingernails trimmed. Wound care provided along with Primary nurse. Wound Tx continued as ordered. New order obtained from to apply Betadine to wound L hand Daily. Tx done as ordered. L hand wrapped with kerlix weaving kerlix between fingers to separate fingers. Moisture Barrier applied to sacrum ,R ischium. Each site covered with Optifoam drsg. Both lower ext washed and moisturized. Cavilon Skin Barrier applied to both heels.Each heel covered with Optifoam drsgs. Pt positioned with pillows and both heels off-loaded with pillow. Pt wounds are resolving. Loose necrotic cap within web space of L index finger and L thumb easily removed with gentle friction. Base of wound is hypergranular with 10% necrosis. Borders are macerated. Application of Silver Nitrate to hypergranular base done. Cavilon Skin Barrier applied to borders . Good hand hygiene provided. Wound covered with Abd pad. L hand wrapped with Kerlix weaving Kerlix between digitsof L hand. Pressure injury L ischium resolving. Base iof wound is pale pink and dry with surrounding hyperpigmentation and scar from previous wound. Hyperpigmentation with historical scars noted to Sacrum and R ischium. Both heels are soft and blanchable. Skin Assessed under trach collar and no evidence of skin breakdown noted. Tx.Plan: Apply Betadine to wound L hand. Cover with Gauze and wrap with Kerlix Daily and prn. Cleanse L ischial wound with Saline. Apply Therahoney. Apply Moisture Barrier periwound. Cover with Optifoam drsgevery 3 days and prn. Apply Moisture Barrier Paste to R ischium and Sacrum. Cover each area with Optifoam drsg. Change every 3 days and prn. Apply Cavilon Skin Barrier to both heels. Cover each heel with Optifoam drsg. Change every 7 days and prn. Cleanse Blister Dorsal and palm of L hand with saline. Versatel One Silicone Contact Layer(Applied). Apply Silvasorb Gel. Wrap with Kerlix Gauze.Change every 7 days and prn. Apply Moisture Barrier to sacrum. Cover with Optifoam drsg. Change every 3 days and prn. APM/BELÉN Mattress overlay. Reposition at least every 2hours or as tolerated. Off-load heels with pillow. Nutritional optimization We will monitor follow with recommendations cont with above upon d/c wounds healing overall improving (2) Sepsis Assessment & Plan: IV abx as per ID trend labs improving wounds unlikely etiology likely respiratory imaging noted and okay abnormal lft's stable PICC on Abx in ICU for desaturation CXR with consolidation cont with frequent suctioning d/c planning g j via GI daughter wants close attention to wounds and management to ensure healing Evidence of left lower lobe pneumonia, also previously demonstrated Gastrostomy in good position Mild diastasis of the rectus abdominis musculature again demonstrated Retrosacral decubitus changes, better depicted on prior exam which included the pelvis Small hiatal hernia with evidence of trace gastroesophageal reflux Discussed with GI. Recommend GJ family still pending decision transfuse prbc prn monitor h/h monitor bm LFTs improving trending down (3) Feeding by G-tube Assessment & Plan: DAILY ESTIMATED NEEDS: Needs based on Pulmonary, wounds, bedbound/ 61kg adj 25-30 kcals/kg 1564-2111 total kcals 1.25-2 g protein/kg 76-122 g total protein 25-30 mL/kg 8370-0480 total fluid mLs NUTRITION DIAGNOSIS: * Increased kcal/prot needs R/T wound healing as evidenced by BL buttocks and sacral wound photos, refer to eval. * Swallowing difficulty R/T respiratory status as evidenced by pt on T-collar, s/p G-J conversion CURRENT TF:Glucerna 1.5 @ 50ml/hr x 24 hrs ENTERAL NUTRITION RECOMMENDATIONS: Glucerna 1.5 @ 50ml/hr x 24 hrs to provide 1200ml, 1800 kcal, 99g pro, 911ml free H2O - Maintain at current rate as tolerated to meet 100% est needs - HOB over 30 degrees - INCREASE water flush of 170ml q 6 hrs ADDITIONAL RECOMMENDATIONS: 1) RE-calibrate bedscale wt: fluctuating daily wts (108#-136# last 6 days) 2) Wound healing: Add Cristian 1pkt BID w/ continued good TF tolerance. 3) Increase water flushes, monitor for signs of water deficits 4) Monitor BGs closely, need for NISS -> now w/ improved BGs 5) Monitor for continued good TF tolerance 6) Monitor K : elev K on 03/25, s/p Kdur BID, now dc'ed. (4) Chronic vegetative state Assessment & Plan: incontinence of urine and stool. can soil dressings. nurses doing great job with monitoring and changing prn (5) Leukocytosis Walter Madera Apr 20, 2019 11:21
--- NOTE | 2019-04-20 11:44 | Infectious Diseases Prog Note ---
"Assessment/Plan Assessment/Plan antibiotics : none A 1. klebsiella | providencia pneumonia s/p rx 2. respiratory failure 3. hypertension 4. CVA 5. dementia 6. sacral decubitus ulcer 7. rectal VRE colonization P 1. observe off antibiotics 2. dc planned Subjective ROS Limited/Unobtainable: Yes Allergies: Coded Allergies: CODEINE (Verified Allergy, Unknown, HIVES, 09/15/09) Objective Vital Signs Last 24 Hour Vital Signs Date Time Temp Pulse Resp B/P (MAP) Pulse Ox O2 Delivery O2 Flow Rate FiO2 04/20/19 11:38 86 24 100 T-Piece 5.0 28 85 25 100 04/20/19 11:00 80 21 116/46 (69) 100 04/20/19 10:00 86 22 106/23 (50) 100 04/20/19 09:00 85 22 124/32 (62) 100 04/20/19 08:00 5.0 28 04/20/19 08:00 86 22 107/39 (61) 98 04/20/19 08:00 88 04/20/19 08:00 T-piece 5.0 T-piece 5.0 04/20/19 07:13 100 T-Piece 6.0 28 04/20/19 07:12 87 17 100 T-Piece 5.0 28 86 24 100 04/20/19 07:00 86 20 116/44 (68) 100 04/20/19 07:00 86 20 116/44 (68) 100 04/20/19 06:30 90 22 144/38 (73) 100 04/20/19 06:00 83 22 115/27 (56) 100 04/20/19 05:00 85 23 132/49 (76) 100 04/20/19 04:00 83 04/20/19 04:00 98.2 83 20 127/32 (63) 99 04/20/19 04:00 T-piece 5.0 T-piece 5.0 04/20/19 04:00 5.0 28 04/20/19 03:30 84 22 123/27 (59) 99 04/20/19 03:02 86 24 100 T-Piece 5.0 28 82 22 100 04/20/19 03:00 82 21 120/45 (70) 99 04/20/19 02:00 83 25 112/49 (70) 98 04/20/19 01:30 82 25 120/32 (61) 99 04/20/19 01:03 100 T-Piece 6.0 28 04/20/19 01:00 80 26 128/34 (65) 98 04/20/19 00:30 82 23 109/49 (69) 99 04/20/19 00:00 T-piece 5.0 T-piece 5.0 04/20/19 00:00 5.0 28 04/20/19 00:00 98.0 85 23 111/49 (69) 97 04/20/19 00:00 85 04/19/19 23:30 84 22 116/50 (72) 97 04/19/19 23:07 85 21 99 T-Piece 5.0 28 85 24 99 04/19/19 23:00 83 22 114/48 (70) 97 04/19/19 22:00 83 26 110/50 (70) 98 04/19/19 21:30 85 22 114/41 (65) 97 04/19/19 21:00 84 24 117/28 (57) 98 04/19/19 20:00 T-piece 5.0 T-piece 5.0 04/19/19 20:00 98.2 85 24 123/38 (66) 99 04/19/19 20:00 5.0 28 04/19/19 20:00 84 04/19/19 19:12 98 T-Piece 6.0 28 04/19/19 19:11 82 27 100 T-Piece 5.0 28 81 26 98 04/19/19 19:00 85 26 123/50 (74) 96 04/19/19 18:00 84 24 123/44 (70) 97 04/19/19 17:00 84 24 130/39 (69) 100 04/19/19 16:00 84 04/19/19 16:00 T-piece 5.0 T-piece 5.0 04/19/19 16:00 5.0 28 04/19/19 16:00 98.2 84 21 124/36 (65) 100 04/19/19 15:01 82 27 100 T-Piece 5.0 28 83 27 99 04/19/19 15:00 83 22 125/36 (65) 100 04/19/19 14:00 81 20 126/34 (64) 100 04/19/19 13:00 81 20 131/33 (65) 100 04/19/19 13:00 100 T-Piece 5.0 28 04/19/19 12:00 5.0 28 04/19/19 12:00 98.5 83 21 93/21 (45) 98 04/19/19 12:00 T-piece 5.0 T-piece 5.0 04/19/19 12:00 83 Height (Feet): 5 Height (Inches): 3.00 Weight (Pounds): 125 HEENT: status post trach Respiratory/Chest: lungs clear Cardiovascular: normal rate, regular rhythm, no gallop/murmur Abdomen: soft, non tender, other - GT Extremities: no edema, other - right arm PICC Laboratory Tests Test 04/20/19 09:30 Sodium Level 144 MMOL/L (136-145) Potassium Level 4.5 MMOL/L (3.5-5.1) Chloride Level 108 MMOL/L (98-107) H Carbon Dioxide Level 26 MMOL/L (21-32) Anion Gap 10 mmol/L (5-15) Blood Urea Nitrogen 58 mg/dL (7-18) H Creatinine 0.9 MG/DL (0.55-1.30) Estimat Glomerular Filtration Rate mL/min (>60) Glucose Level 115 MG/DL (74-106) H Calcium Level 8.9 MG/DL (8.5-10.1) Total Bilirubin 0.2 MG/DL (0.2-1.0) Aspartate Amino Transf (AST/SGOT) 37 U/L (15-37) Alanine Aminotransferase (ALT/SGPT) 96 U/L (12-78) H Alkaline Phosphatase 151 U/L (46-116) H Total Protein 8.4 G/DL (6.4-8.2) H Albumin 3.1 G/DL (3.4-5.0) L Globulin 5.3 g/dL Albumin/Globulin Ratio 0.6 (1.0-2.7) L Current Medications Medications (Trade) Dose Ordered Sig/Maicol Route PRN Reason Start Time Stop Time Status Last Admin Dose Admin Acetaminophen (Tylenol) 650 mg Q6H PRN GT Mild Pain/Temp > 100.5 03/23/19 15:15 04/22/19 15:14 04/15/19 22:23 Albuterol/ Ipratropium (Albuterol/ Ipratropium) 3 ml Q4HRT HHN 04/20/19 11:00 04/25/19 10:59 04/20/19 11:39 Atropine Sulfate (Atropine Opth Adriana) 1 drop THREE TIMES A DAY SL 04/08/19 09:00 05/07/19 20:59 04/20/19 09:12 Chlorhexidine Gluconate (Cesilia-Hex 2%) 1 applic DAILY@2000 TOPIC 04/12/19 20:00 05/12/19 19:59 04/19/19 20:09 Folic Acid (Folate) 1 mg DAILY GT 04/08/19 09:00 05/08/19 08:59 04/20/19 09:04 Heparin Sodium (Porcine) (Heparin 5000 units/ml) 5,000 units EVERY 12 HOURS SUBQ 04/01/19 10:00 05/01/19 09:59 04/20/19 09:14 Hydralazine HCl (Apresoline) 25 mg Q6H PRN ORAL SBP above 150 04/06/19 02:45 05/06/19 02:44 04/06/19 11:15 Lansoprazole (Prevacid) 30 mg Q12HR GT 03/29/19 09:00 04/24/19 20:59 04/20/19 09:04 Levetiracetam (Keppra) 750 mg Q12HR GT 04/07/19 21:00 05/07/19 20:59 04/20/19 09:05 Sorbitol (Sorbitol) 30 ml BIDPRN PRN ORAL Constipation 04/13/19 11:15 05/13/19 11:14 Sorbitol (sorbitoL) 30 ml DAILY GT 04/14/19 09:00 05/14/19 08:59 04/20/19 09:04 Geovany Yang MD Apr 20, 2019 11:44"
--- NOTE | 2019-04-20 12:00 | NUR ---
NURSE NOTES: Complete bed bath, perineal care, and linen change provided to patient. Purewick replaced. Repositioned and suctioned orally and via trach. Patient tolerated well. Dr Jm Liriano made rounds, seen patient. Vital signs remains stable. No acute distress. Will continue to monitor patient.
--- NOTE | 2019-04-20 14:00 | Nephrology Progress Note ---
Assessment/Plan Problem List: (1) Acute renal failure (ARF) Assessment: Cr stable (2) Chronic respiratory failure (3) Anemia (4) Sepsis Assessment Acute renal failure Respiratory failure - Trach Low Mag- Low k , Low Na Anemia UTI / Sepsis Proteinuria / HypoAlbuminemia high Trigs Sz decubs bed bound DNR Plan Transfused previously now has JT bolus Albumin as needed K and Mag and Phos supplement as needed Hydrate as needed Urine studies avoid Nephrotoxics mag K Phos supplements as needed monitor renal parameters Subjective ROS Limited/Unobtainable: Yes Objective Objective Last 24 Hour Vital Signs Date Time Temp Pulse Resp B/P (MAP) Pulse Ox O2 Delivery O2 Flow Rate FiO2 04/20/19 13:19 100 T-Piece 6.0 28 04/20/19 13:00 83 22 110/29 (56) 100 04/20/19 12:00 5.0 28 04/20/19 12:00 85 21 113/30 (57) 99 04/20/19 12:00 T-piece 5.0 T-piece 5.0 04/20/19 12:00 84 04/20/19 11:38 86 24 100 T-Piece 5.0 28 85 25 100 04/20/19 11:00 80 21 116/46 (69) 100 04/20/19 10:00 86 22 106/23 (50) 100 04/20/19 09:00 85 22 124/32 (62) 100 04/20/19 08:00 5.0 28 04/20/19 08:00 86 22 107/39 (61) 98 04/20/19 08:00 88 04/20/19 08:00 T-piece 5.0 T-piece 5.0 04/20/19 07:13 100 T-Piece 6.0 28 04/20/19 07:12 87 17 100 T-Piece 5.0 28 86 24 100 04/20/19 07:00 86 20 116/44 (68) 100 04/20/19 07:00 86 20 116/44 (68) 100 04/20/19 06:30 90 22 144/38 (73) 100 04/20/19 06:00 83 22 115/27 (56) 100 04/20/19 05:00 85 23 132/49 (76) 100 04/20/19 04:00 83 1/20/20 04:00 98.2 83 20 127/32 (63) 99 04/20/19 04:00 T-piece 5.0 T-piece 5.0 04/20/19 04:00 5.0 28 04/20/19 03:30 84 22 123/27 (59) 99 04/20/19 03:02 86 24 100 T-Piece 5.0 28 82 22 100 04/20/19 03:00 82 21 120/45 (70) 99 04/20/19 02:00 83 25 112/49 (70) 98 04/20/19 01:30 82 25 120/32 (61) 99 04/20/19 01:03 100 T-Piece 6.0 28 04/20/19 01:00 80 26 128/34 (65) 98 04/20/19 00:30 82 23 109/49 (69) 99 04/20/19 00:00 T-piece 5.0 T-piece 5.0 04/20/19 00:00 5.0 28 04/20/19 00:00 98.0 85 23 111/49 (69) 97 04/20/19 00:00 85 04/19/19 23:30 84 22 116/50 (72) 97 04/19/19 23:07 85 21 99 T-Piece 5.0 28 85 24 99 04/19/19 23:00 83 22 114/48 (70) 97 04/19/19 22:00 83 26 110/50 (70) 98 04/19/19 21:30 85 22 114/41 (65) 97 04/19/19 21:00 84 24 117/28 (57) 98 04/19/19 20:00 T-piece 5.0 T-piece 5.0 04/19/19 20:00 98.2 85 24 123/38 (66) 99 04/19/19 20:00 5.0 28 04/19/19 20:00 84 04/19/19 19:12 98 T-Piece 6.0 28 04/19/19 19:11 82 27 100 T-Piece 5.0 28 81 26 98 04/19/19 19:00 85 26 123/50 (74) 96 04/19/19 18:00 84 24 123/44 (70) 97 04/19/19 17:00 84 24 130/39 (69) 100 04/19/19 16:00 84 04/19/19 16:00 T-piece 5.0 T-piece 5.0 04/19/19 16:00 5.0 28 04/19/19 16:00 98.2 84 21 124/36 (65) 100 04/19/19 15:01 82 27 100 T-Piece 5.0 28 83 27 99 04/19/19 15:00 83 22 125/36 (65) 100 04/19/19 14:00 81 20 126/34 (64) 100 Intake and Output 04/19/19 04/20/19 19:00 07:00 Intake Total 880 ml 1470 ml Output Total 1500 ml 1000 ml Balance -620 ml 470 ml Free Water 160 ml IV Total 450 ml Tube Feeding 720 ml 720 ml Other 300 ml Output Urine Total 1000 ml 400 ml Gastric Drainage Total 500 ml 600 ml # Bowel Movements 1 Laboratory Tests 04/20/19 09:30: Sodium Level 144, Potassium Level 4.5, Chloride Level 108H, Carbon Dioxide Level 26, Anion Gap 10, Blood Urea Nitrogen 58H, Creatinine 0.9, Estimat Glomerular Filtration Rate , Glucose Level 115H, Calcium Level 8.9, Total Bilirubin 0.2, Aspartate Amino Transf (AST/SGOT) 37, Alanine Aminotransferase ( ALT/SGPT) 96H, Alkaline Phosphatase 151H, Total Protein 8.4H, Albumin 3.1L, Globulin 5.3, Albumin/Globulin Ratio 0.6L Height (Feet): 5 Height (Inches): 3.00 Weight (Pounds): 125 General Appearance: no apparent distress EENT: other - trach-O2 Cardiovascular: normal rate Respiratory/Chest: decreased breath sounds Abdomen: soft Objective no change Eric Cortez MD Apr 20, 2019 14:00
--- NOTE | 2019-04-20 14:00 | NUR ---
NURSE NOTES: Pericare and linen change provided. Optifoam dressings replaced. Purewick in place. Patient was turned and repositioned; suctioned orally and via trach with moderate amount secretions. TF tolerating well. HOB elevated. VS remains stable at this time. Will continue to monitor.
--- NOTE | 2019-04-20 15:31 | NUR ---
NURSE NOTES: Patient's daughter and son present at bedside. RT at bedside as well for breathing treatment. Patient's VS stable at this time. Will continue to monitor patient.
--- NOTE | 2019-04-20 16:30 | NUR ---
NURSE NOTES: Repositioned patient and suctioned orally and via trach. JT and GT flushed as ordered. Patient's VS remains stable at this time. audience development manager and daughter present at bedside. No acute distress noted from patient, will continue to monitor.
[2019-04-20] MEDS ORDERED: 1/2 NS 1000ml IV ONE (16:59)
[2019-04-20] MEDS ORDERED: NS 275ml ONE (16:59)
[2019-04-20] MEDS ORDERED: NS Irrig 1000ml ONE (16:59)
--- NOTE | 2019-04-20 18:00 | NUR ---
NURSE NOTES: Bed bath provided and repositioned patient. Suctioned patient orally and via trach with small amount of white thick secretions. VS remained stable. No acute distress noted. Will continue to monitor.
--- NOTE | 2019-04-20 19:01 | NUR ---
HAND-OFF: Report given to JEANNINE Britt. Patient remains in stable.
--- NOTE | 2019-04-20 19:30 | NUR ---
NURSE NOTES: Received report from JEANNINE Del Cid. Pt is resting on the bed and obtunded. On T-piece FiO2 28% O2 5L and SaO2 100% noted. Given tracheal and oral suction. Provided oral care. On j-tube feeding with vital AF @ 60cc/hr and tolerated well. No residual noted. On gravity drain from G-tube. In placed purewicks. Dressing is clean and dry on Lt. hand area and applied OptiForm on sacral and both ischial area for protection. On P-200 mattress for wound management. No sign of pain by FLACC scale. Placed fall and seizure precaution. Will continue to care plan. Addendum: 04/20/19 at 1953 by LONG PERALTA RN RN Pt has Rt. upper arm PICC line intact and patent and dressing is clean and dry.
[2019-04-20] MEDS: Dyna-Hex 2% Top Sol 2oz TOPIC SCH (20:02)
--- NOTE | 2019-04-20 21:00 | NUR ---
NURSE NOTES: Given tracheal and oral suction. Provided mouth care. Will continue to care plan.
--- NOTE | 2019-04-20 21:50 | General Progress Note ---
Assessment/Plan Status: stable, progressing Assessment/Plan: Assessment - N/V - resolved with G --> J conversion - constipation - partly due to low residue formula used, good response to sorbitol - Elevated Alk phos / LFT - CT negative - abd U/S negative - check hepatitis serologies - negative - possibly MURRAY / Fatty liver - will periodically monitor - Anemia with OB (-) stools - Resp failure, s/p Trach - dysphagia, s/p PEG --> GJ tube - OBS, vegetative obtunded unresponsive state, bedbound with contracted extremities, - h/o minor GJ tube site irritation - Early J port occlusion, possibly due to thick diabetic TF formula - Elevated glucose - elevated BUN/Cr - poor Prognosis Recommendations - daily sorbitol, and PRN sorbitol - Follow BUN/Cr - Cristian BID - antibiotic ointment to GJT site PRN - aspiration precautions - elevate HOB - Vital AF 1.2 - check q 6 hour FS - transfuse to keep Hg > 7 - J tube feeds - G tube drain Subjective Allergies: Coded Allergies: CODEINE (Verified Allergy, Unknown, HIVES, 09/15/09) Subjective above noted tolerating TF via J port d/w RN (+) BM Objective Last 24 Hour Vital Signs Date Time Temp Pulse Resp B/P (MAP) Pulse Ox O2 Delivery O2 Flow Rate FiO2 04/20/19 21:00 81 17 129/42 (71) 100 04/20/19 20:00 T-piece 5.0 T-piece 5.0 04/20/19 20:00 98.8 78 21 118/34 (62) 100 04/20/19 20:00 5.0 28 04/20/19 20:00 80 04/20/19 19:37 100 T-Piece 5.0 28 04/20/19 19:37 80 22 100 T-Piece 5.0 28 83 19 100 04/20/19 19:00 80 20 101/18 (45) 97 04/20/19 18:00 84 22 130/57 (81) 99 04/20/19 17:00 83 20 119/29 (59) 100 04/20/19 16:00 80 04/20/19 16:00 T-piece 5.0 T-piece 5.0 04/20/19 16:00 5.0 28 04/20/19 16:00 98.2 89 17 158/49 (85) 99 04/20/19 15:26 81 21 100 T-Piece 5.0 28 82 20 100 04/20/19 15:00 82 18 124/34 (64) 100 04/20/19 14:00 85 22 117/37 (63) 100 04/20/19 13:19 100 T-Piece 6.0 28 04/20/19 13:00 83 22 110/29 (56) 100 04/20/19 12:00 5.0 28 04/20/19 12:00 98.0 85 21 113/30 (57) 99 04/20/19 12:00 T-piece 5.0 T-piece 5.0 04/20/19 12:00 84 04/20/19 11:38 86 24 100 T-Piece 5.0 28 85 25 100 04/20/19 11:00 80 21 116/46 (69) 100 04/20/19 10:00 86 22 106/23 (50) 100 04/20/19 09:00 85 22 124/32 (62) 100 04/20/19 08:00 5.0 28 04/20/19 08:00 98.1 86 22 107/39 (61) 98 04/20/19 08:00 88 04/20/19 08:00 T-piece 5.0 T-piece 5.0 04/20/19 07:13 100 T-Piece 6.0 28 04/20/19 07:12 87 17 100 T-Piece 5.0 28 86 24 100 04/20/19 07:00 86 20 116/44 (68) 100 04/20/19 07:00 86 20 116/44 (68) 100 04/20/19 06:30 90 22 144/38 (73) 100 04/20/19 06:00 83 22 115/27 (56) 100 04/20/19 05:00 85 23 132/49 (76) 100 04/20/19 04:00 83 04/20/19 04:00 98.2 83 20 127/32 (63) 99 04/20/19 04:00 T-piece 5.0 T-piece 5.0 04/20/19 04:00 5.0 28 04/20/19 03:30 84 22 123/27 (59) 99 04/20/19 03:02 86 24 100 T-Piece 5.0 28 82 22 100 04/20/19 03:00 82 21 120/45 (70) 99 04/20/19 02:00 83 25 112/49 (70) 98 04/20/19 01:30 82 25 120/32 (61) 99 04/20/19 01:03 100 T-Piece 6.0 28 04/20/19 01:00 80 26 128/34 (65) 98 04/20/19 00:30 82 23 109/49 (69) 99 04/20/19 00:00 T-piece 5.0 T-piece 5.0 04/20/19 00:00 5.0 28 04/20/19 00:00 98.0 85 23 111/49 (69) 97 04/20/19 00:00 85 04/19/19 23:30 84 22 116/50 (72) 97 04/19/19 23:07 85 21 99 T-Piece 5.0 28 85 24 99 04/19/19 23:00 83 22 114/48 (70) 97 04/19/19 22:00 83 26 110/50 (70) 98 Intake and Output 04/19/19 04/20/19 19:00 07:00 Intake Total 880 ml 1470 ml Output Total 1500 ml 1000 ml Balance -620 ml 470 ml Free Water 160 ml IV Total 450 ml Tube Feeding 720 ml 720 ml Other 300 ml Output Urine Total 1000 ml 400 ml Gastric Drainage Total 500 ml 600 ml # Bowel Movements 1 Laboratory Tests 04/20/19 09:30: Sodium Level 144, Potassium Level 4.5, Chloride Level 108H, Carbon Dioxide Level 26, Anion Gap 10, Blood Urea Nitrogen 58H, Creatinine 0.9, Estimat Glomerular Filtration Rate , Glucose Level 115H, Calcium Level 8.9, Total Bilirubin 0.2, Aspartate Amino Transf (AST/SGOT) 37, Alanine Aminotransferase ( ALT/SGPT) 96H, Alkaline Phosphatase 151H, Total Protein 8.4H, Albumin 3.1L, Globulin 5.3, Albumin/Globulin Ratio 0.6L Height (Feet): 5 Height (Inches): 3.00 Weight (Pounds): 125 Objective Debilitated AA woman non-verbal, obtunded NCAT (+) trach coarse BS RR obese abd, (+) GJT no edema (+) contractured extremities Celio Vaughan MD Apr 20, 2019 21:50
--- NOTE | 2019-04-20 22:30 | NUR ---
NURSE NOTES: Repositioned. Suction and oral care was done. Placed fall and seizure precaution. Will continue to monitor any change of condition.
--- NOTE | 2019-04-20 22:30 | NUR ---
NURSE NOTES: Family; daughter visited and stay her bedside.
[2019-04-21] VITALS (27 sets, daily range): BP systolic 95–134; BP diastolic 17–68
--- NOTE | 2019-04-21 | NUR ---
NURSE NOTES: Pt is sleeping on the bed and no sign of acute distress noted. Tolerated well with current J-tube feeding. Changed position. Oral and tracheal suction was done. Provided oral care. Provided good sleep environment. Placed fall and seizure precaution. Will continue to monitor any change of condition.
--- NOTE | 2019-04-21 02:00 | NUR ---
NURSE NOTES: Pt is sleeping on the bed and no sign of acute distress noted. V/S stable. Provided suction and oral care. Changed position. No sign of hypo/hyperglycemic reaction. No sign of pain by FLACC scale. Will continue to monitor any change of condition.
--- NOTE | 2019-04-21 02:30 | Progress Note ---
DATE: 04/20/2019 CARDIOLOGY PROGRESS NOTE SUBJECTIVE: The patient remains on T-tube with minimal secretions. Tolerating feedings. No vomiting. Monitored rhythm sinus. OBJECTIVE: VITAL SIGNS: Blood pressure 116/44, heart rate 86, and respiratory rate 20. LUNGS: Good breath sounds. HEART: Regular rhythm and rate. Normal S1, S2. ABDOMEN: Soft. GJ tube intact with no leakage. EXTREMITIES: Trace edema. LABORATORY DATA: Sodium 144, potassium 4.5, bicarb 26, BUN 58, and creatinine 0.9. Liver function studies are slightly elevated. Albumin 3.1. IMPRESSION: 1. Cholestasis. 2. Prerenal azotemia. 3. Dehydration and hypernatremia, improved. 4. Chronic diastolic congestive heart failure. 5. Hypertensive heart disease. 6. Ventilator-dependent respiratory failure. PLAN: 1. Awaiting disposition. 2. Continuing nutrition and free water replacement. 3. Monitoring liver function. 4. No additional interventions presently indicated. Bg Hagen M.D. DR: DAMEON JOB#: [id number] CC:
[2019-04-21] MEDS: Albuterol/Ipratropium 3ml neb HHN SCH ×6 (03:33→22:53)
--- NOTE | 2019-04-21 04:00 | NUR ---
NURSE NOTES: Morning care was done. Cleaned Pt and applied lotion and cream. Wound dressing changed. Repositioned. Suction and oral care was done. Current J-tube feeding tolerated well. Blood sample collected. Will continue to care plan.
[2019-04-21 06:00] LABS: ANION GAP 10 mmol/L (5-15); BLOOD UREA NITROGEN 61 mg/dL (7-18); CARBON DIOXIDE 26 MMOL/L (21-32); CHLORIDE 107 MMOL/L (98-107); POTASSIUM 4.2 MMOL/L (3.5-5.1); SODIUM 143 MMOL/L (136-145)
--- NOTE | 2019-04-21 06:00 | NUR ---
NURSE NOTES: pt is sleeping on the bed and no sign of acute distress noted. Stable V/S. On running with vital AF @ 60cc/hr and no residual noted. On gravity drainage from G-tube. Repositioned. Provided oral and tracheal suction. Dr. Beltrán visited d assessed Pt. Will continue to monitor any change of condition.
[2019-04-21 06:01] LABS: ALANINE AMINOTRANSFERASE 85 U/L (12-78); ALBUMIN 3.1 G/DL (3.4-5.0); ALBUMIN/GLOBULIN RATIO 0.6 (1.0-2.7); ALKALINE PHOSPHATASE 132 U/L (46-116); ASPARTATE AMINO TRANSFERASE 33 U/L (15-37); BILIRUBIN,TOTAL 0.2 MG/DL (0.2-1.0); CALCIUM 8.9 MG/DL (8.5-10.1)
--- NOTE | 2019-04-21 07:14 | NUR ---
HAND-OFF: Report given to JEANNINE Mari. Pt is sleeping on the bed and no sign of acute distress noted.
--- NOTE | 2019-04-21 07:15 | NUR ---
NURSE NOTES: Received report from JEANNINE Britt. Pt is observed laying in bed, obtunded, non verbal, opening eyes spontaneously. On T-piece FiO2 28% O2 5L and SaO2 100% noted. J-tube feeding running vital AF @ 60mL/hr and tolerating well. No residual noted. G-tube draining to gravity. Purewick in place. Dressing is clean and dry on Lt. hand. Pt has Rt. upper arm PICC line intact and patent, dressing clean dry and intact. On P-200 mattress for wound management. No signs of pain and/or distress. Pt maintained on fall and seizure precautions. Will continue to care plan.
--- NOTE | 2019-04-21 08:31 | Pulmonology Progress Note ---
Assessment/Plan Assessment/Plan Impression: history of Sepsis history of Pneumonia Trach, G tube, Hypertension, Cardiac disease, Dementia, Previous CVA, Seizure disorder, Respiratory failure with hypoxia Anemia, Sacral ulcer renal cyst chronic pulmonary congestion Plan continue with precautions as outlined needs suctioning oxygen low flow and stable aspiration precautions to continue elevate head and monitor secretions DNR. No CPR. ICU care reviewed meds noted off load as able nutrition skin care difficulty with placement monitor residual and reflux aspiration all changes noted and discussed chronic management reviewed medications/laboratory data/nursing notes/ICU care reviewed in detail note reviewed and edited care discussed with RN and RT Subjective ROS Limited/Unobtainable: Yes Allergies: Coded Allergies: CODEINE (Verified Allergy, Unknown, HIVES, 09/15/09) Subjective overnight events noted; respiratory status and RT care reviewed head elevated ICU care issues discussed bed bound and obtunded supportive care reviewed Objective Last 24 Hour Vital Signs Date Time Temp Pulse Resp B/P (MAP) Pulse Ox O2 Delivery O2 Flow Rate FiO2 04/21/19 08:09 86 04/21/19 08:00 5.0 28 04/21/19 07:00 90 22 118/24 (55) 99 04/21/19 06:52 83 23 100 T-Piece 6.0 28 90 22 97 04/21/19 06:42 97 T-Piece 6.0 28 04/21/19 06:00 88 22 114/28 (56) 99 04/21/19 05:00 83 21 120/31 (60) 99 04/21/19 04:00 T-piece 5.0 T-piece 5.0 04/21/19 04:00 5.0 28 04/21/19 04:00 98.8 87 21 100/35 (56) 100 04/21/19 04:00 85 04/21/19 03:33 86 17 100 T-Piece 5.0 28 85 18 99 04/21/19 03:00 85 22 114/36 (62) 98 04/21/19 02:00 82 21 104/35 (58) 98 04/21/19 01:28 98 T-Piece 5.0 28 04/21/19 01:00 80 20 119/44 (69) 100 04/21/19 00:00 5.0 28 04/21/19 00:00 98.0 81 21 103/42 (62) 99 04/21/19 00:00 T-piece 5.0 T-piece 5.0 04/21/19 00:00 81 04/20/19 23:36 79 21 100 T-Piece 5.0 28 78 19 99 04/20/19 23:00 81 21 128/41 (70) 98 04/20/19 22:00 82 20 117/84 (95) 100 04/20/19 21:00 81 17 129/42 (71) 100 04/20/19 20:00 T-piece 5.0 T-piece 5.0 04/20/19 20:00 98.8 78 21 118/34 (62) 100 04/20/19 20:00 5.0 28 04/20/19 20:00 80 04/20/19 19:37 100 T-Piece 5.0 28 04/20/19 19:37 80 22 100 T-Piece 5.0 28 83 19 100 04/20/19 19:00 80 20 101/18 (45) 97 04/20/19 18:00 84 22 130/57 (81) 99 04/20/19 17:00 83 20 119/29 (59) 100 04/20/19 16:00 80 04/20/19 16:00 T-piece 5.0 T-piece 5.0 04/20/19 16:00 5.0 28 04/20/19 16:00 98.2 89 17 158/49 (85) 99 04/20/19 15:26 81 21 100 T-Piece 5.0 28 82 20 100 04/20/19 15:00 82 18 124/34 (64) 100 04/20/19 14:00 85 22 117/37 (63) 100 04/20/19 13:19 100 T-Piece 6.0 28 04/20/19 13:00 83 22 110/29 (56) 100 04/20/19 12:00 5.0 28 04/20/19 12:00 98.0 85 21 113/30 (57) 99 04/20/19 12:00 T-piece 5.0 T-piece 5.0 04/20/19 12:00 84 04/20/19 11:38 86 24 100 T-Piece 5.0 28 85 25 100 04/20/19 11:00 80 21 116/46 (69) 100 04/20/19 10:00 86 22 106/23 (50) 100 04/20/19 09:00 85 22 124/32 (62) 100 Intake and Output 04/20/19 04/21/19 18:59 06:59 Intake Total 1445 ml 920 ml Output Total 825 ml 550 ml Balance 620 ml 370 ml Free Water 300 ml 200 ml IV Total 75 ml Tube Feeding 720 ml 720 ml Other 350 ml Output Urine Total 400 ml 400 ml Gastric Drainage Total 150 ml Other 425 ml 0 ml # Bowel Movements 4 2 Objective WDWN NAD contracted off vent reduced breath sounds bilaterally without rhonchi or wheeze [id number] without MRG NABS nontender no HSM no CC trace edema same nonfocal nonverbal trach and gt reviewed and edited Laboratory Tests 04/20/19 09:30: Sodium Level 144, Potassium Level 4.5, Chloride Level 108H, Carbon Dioxide Level 26, Anion Gap 10, Blood Urea Nitrogen 58H, Creatinine 0.9, Estimat Glomerular Filtration Rate , Glucose Level 115H, Calcium Level 8.9, Total Bilirubin 0.2, Aspartate Amino Transf (AST/SGOT) 37, Alanine Aminotransferase ( ALT/SGPT) 96H, Alkaline Phosphatase 151H, Total Protein 8.4H, Albumin 3.1L, Globulin 5.3, Albumin/Globulin Ratio 0.6L 04/21/19 03:40: Sodium Level 143, Potassium Level 4.2, Chloride Level 107, Carbon Dioxide Level 26, Anion Gap 10, Blood Urea Nitrogen 61H, Creatinine 1.0, Estimat Glomerular Filtration Rate , Glucose Level 111H, Calcium Level 8.9, Total Bilirubin 0.2, Aspartate Amino Transf (AST/SGOT) 33, Alanine Aminotransferase (ALT/SGPT) 85H, Alkaline Phosphatase 132H, Total Protein 8.3H, Albumin 3.1L, Globulin 5.2, Albumin/Globulin Ratio 0.6L Current Medications Medications (Trade) Dose Ordered Sig/Maicol Route PRN Reason Start Time Stop Time Status Last Admin Dose Admin Acetaminophen (Tylenol) 650 mg Q6H PRN GT Mild Pain/Temp > 100.5 03/23/19 15:15 04/22/19 15:14 04/15/19 22:23 Albuterol/ Ipratropium (Albuterol/ Ipratropium) 3 ml Q4HRT HHN 04/20/19 11:00 04/25/19 10:59 04/21/19 06:42 Atropine Sulfate (Atropine Opth Adriana) 1 drop THREE TIMES A DAY SL 04/08/19 09:00 05/07/19 20:59 04/20/19 17:44 Chlorhexidine Gluconate (Cesilia-Hex 2%) 1 applic DAILY@2000 TOPIC 04/12/19 20:00 05/12/19 19:59 04/20/19 20:02 Folic Acid (Folate) 1 mg DAILY GT 04/08/19 09:00 05/08/19 08:59 04/20/19 09:04 Heparin Sodium (Porcine) (Heparin 5000 units/ml) 5,000 units EVERY 12 HOURS SUBQ 04/01/19 10:00 05/01/19 09:59 04/20/19 20:48 Hydralazine HCl (Apresoline) 25 mg Q6H PRN ORAL SBP above 150 04/06/19 02:45 05/06/19 02:44 04/06/19 11:15 Lansoprazole (Prevacid) 30 mg Q12HR GT 03/29/19 09:00 04/24/19 20:59 04/20/19 20:46 Levetiracetam (Keppra) 750 mg Q12HR GT 04/07/19 21:00 05/07/19 20:59 04/20/19 20:46 Sorbitol (Sorbitol) 30 ml BIDPRN PRN ORAL Constipation 04/13/19 11:15 05/13/19 11:14 Sorbitol (sorbitoL) 30 ml DAILY GT 04/14/19 09:00 05/14/19 08:59 04/20/19 09:04 Amaury Chan MD Apr 21, 2019 08:31
[2019-04-21] MEDS: Sorbitol Solution UD 30ml GT SCH (09:21)
[2019-04-21] MEDS: Heparin 5000 units/ml inj SUBQ SCH ×2 (09:23→20:12)
--- NOTE | 2019-04-21 10:00 | NUR ---
NURSE NOTES: Pt suctioned and Oral care completed. Pt repositioned. G Tube clamped 1 hour after medication administration. No distress noted.
--- NOTE | 2019-04-21 11:02 | Infectious Diseases Prog Note ---
"Assessment/Plan Assessment/Plan antibiotics : none A 1. klebsiella | providencia pneumonia s/p rx 2. respiratory failure 3. hypertension 4. CVA 5. dementia 6. sacral decubitus ulcer 7. rectal VRE colonization P 1. observe off antibiotics 2. dc planned Subjective ROS Limited/Unobtainable: Yes Allergies: Coded Allergies: CODEINE (Verified Allergy, Unknown, HIVES, 09/15/09) Objective Vital Signs Last 24 Hour Vital Signs Date Time Temp Pulse Resp B/P (MAP) Pulse Ox O2 Delivery O2 Flow Rate FiO2 04/21/19 10:00 86 26 125/26 (59) 98 04/21/19 09:00 82 18 112/23 (52) 100 04/21/19 08:30 82 20 114/26 (55) 99 04/21/19 08:09 86 04/21/19 08:00 98.6 85 22 95/27 (49) 100 04/21/19 08:00 5.0 28 04/21/19 08:00 T-piece 5.0 T-piece 5.0 04/21/19 07:00 90 22 118/24 (55) 99 04/21/19 06:52 83 23 100 T-Piece 6.0 28 90 22 97 04/21/19 06:42 97 T-Piece 6.0 28 04/21/19 06:00 88 22 114/28 (56) 99 04/21/19 05:00 83 21 120/31 (60) 99 04/21/19 04:00 T-piece 5.0 T-piece 5.0 04/21/19 04:00 5.0 28 04/21/19 04:00 98.8 87 21 100/35 (56) 100 04/21/19 04:00 85 04/21/19 03:33 86 17 100 T-Piece 5.0 28 85 18 99 04/21/19 03:00 85 22 114/36 (62) 98 04/21/19 02:00 82 21 104/35 (58) 98 04/21/19 01:28 98 T-Piece 5.0 28 04/21/19 01:00 80 20 119/44 (69) 100 04/21/19 00:00 5.0 28 04/21/19 00:00 98.0 81 21 103/42 (62) 99 04/21/19 00:00 T-piece 5.0 T-piece 5.0 04/21/19 00:00 81 04/20/19 23:36 79 21 100 T-Piece 5.0 28 78 19 99 04/20/19 23:00 81 21 128/41 (70) 98 04/20/19 22:00 82 20 117/84 (95) 100 04/20/19 21:00 81 17 129/42 (71) 100 04/20/19 20:00 T-piece 5.0 T-piece 5.0 04/20/19 20:00 98.8 78 21 118/34 (62) 100 04/20/19 20:00 5.0 28 04/20/19 20:00 80 04/20/19 19:37 100 T-Piece 5.0 28 04/20/19 19:37 80 22 100 T-Piece 5.0 28 83 19 100 04/20/19 19:00 80 20 101/18 (45) 97 04/20/19 18:00 84 22 130/57 (81) 99 04/20/19 17:00 83 20 119/29 (59) 100 04/20/19 16:00 80 04/20/19 16:00 T-piece 5.0 T-piece 5.0 04/20/19 16:00 5.0 28 04/20/19 16:00 98.2 89 17 158/49 (85) 99 04/20/19 15:26 81 21 100 T-Piece 5.0 28 82 20 100 04/20/19 15:00 82 18 124/34 (64) 100 04/20/19 14:00 85 22 117/37 (63) 100 04/20/19 13:19 100 T-Piece 6.0 28 04/20/19 13:00 83 22 110/29 (56) 100 04/20/19 12:00 5.0 28 04/20/19 12:00 98.0 85 21 113/30 (57) 99 04/20/19 12:00 T-piece 5.0 T-piece 5.0 04/20/19 12:00 84 04/20/19 11:38 86 24 100 T-Piece 5.0 28 85 25 100 Height (Feet): 5 Height (Inches): 3.00 Weight (Pounds): 124 HEENT: status post trach Respiratory/Chest: lungs clear Cardiovascular: normal rate, regular rhythm, no gallop/murmur Abdomen: soft, non tender, other - GT Extremities: no edema, other - right arm PICC Laboratory Tests Test 04/21/19 03:40 Sodium Level 143 MMOL/L (136-145) Potassium Level 4.2 MMOL/L (3.5-5.1) Chloride Level 107 MMOL/L (98-107) Carbon Dioxide Level 26 MMOL/L (21-32) Anion Gap 10 mmol/L (5-15) Blood Urea Nitrogen 61 mg/dL (7-18) H Creatinine 1.0 MG/DL (0.55-1.30) Estimat Glomerular Filtration Rate mL/min (>60) Glucose Level 111 MG/DL (74-106) H Calcium Level 8.9 MG/DL (8.5-10.1) Total Bilirubin 0.2 MG/DL (0.2-1.0) Aspartate Amino Transf (AST/SGOT) 33 U/L (15-37) Alanine Aminotransferase (ALT/SGPT) 85 U/L (12-78) H Alkaline Phosphatase 132 U/L (46-116) H Total Protein 8.3 G/DL (6.4-8.2) H Albumin 3.1 G/DL (3.4-5.0) L Globulin 5.2 g/dL Albumin/Globulin Ratio 0.6 (1.0-2.7) L Current Medications Medications (Trade) Dose Ordered Sig/Maicol Route PRN Reason Start Time Stop Time Status Last Admin Dose Admin Acetaminophen (Tylenol) 650 mg Q6H PRN GT Mild Pain/Temp > 100.5 03/23/19 15:15 04/22/19 15:14 04/15/19 22:23 Albuterol/ Ipratropium (Albuterol/ Ipratropium) 3 ml Q4HRT HHN 04/20/19 11:00 04/25/19 10:59 04/21/19 10:43 Atropine Sulfate (Atropine Opth Adriana) 1 drop THREE TIMES A DAY SL 04/08/19 09:00 05/07/19 20:59 04/21/19 09:22 Chlorhexidine Gluconate (Cesilia-Hex 2%) 1 applic DAILY@1999 TOPIC 04/12/19 20:00 05/12/19 19:59 04/20/19 20:02 Folic Acid (Folate) 1 mg DAILY GT 04/08/19 09:00 05/08/19 08:59 04/21/19 09:22 Heparin Sodium (Porcine) (Heparin 5000 units/ml) 5,000 units EVERY 12 HOURS SUBQ 04/01/19 10:00 05/01/19 09:59 04/21/19 09:23 Hydralazine HCl (Apresoline) 25 mg Q6H PRN ORAL SBP above 150 04/06/19 02:45 05/06/19 02:44 04/06/19 11:15 Lansoprazole (Prevacid) 30 mg Q12HR GT 03/29/19 09:00 04/24/19 20:59 04/21/19 09:22 Levetiracetam (Keppra) 750 mg Q12HR GT 04/07/19 21:00 05/07/19 20:59 04/21/19 09:21 Sorbitol (Sorbitol) 30 ml BIDPRN PRN ORAL Constipation 04/13/19 11:15 05/13/19 11:14 Sorbitol (sorbitoL) 30 ml DAILY GT 04/14/19 09:00 05/14/19 08:59 04/21/19 09:21 Geovany Yang MD Apr 21, 2019 11:02"
--- NOTE | 2019-04-21 12:00 | NUR ---
NURSE NOTES: Bedside blood glucose was 112. G Tube and J tube both flushed with 100mL water. Pt repositioned and white frothy secretions suctioned. No distress noted. Will continue to monitor.
--- NOTE | 2019-04-21 12:08 | Nephrology Progress Note ---
Assessment/Plan Problem List: (1) Acute renal failure (ARF) Assessment: Cr stable (2) Chronic respiratory failure (3) Anemia (4) Sepsis Assessment Acute renal failure Respiratory failure - Trach Low Mag- Low k , Low Na Anemia UTI / Sepsis Proteinuria / HypoAlbuminemia high Trigs Sz decubs bed bound DNR Plan Transfused previously now has JT bolus Albumin as needed K and Mag and Phos supplement as needed Hydrate as needed Urine studies avoid Nephrotoxics mag K Phos supplements as needed monitor renal parameters Subjective ROS Limited/Unobtainable: Yes Objective Objective Last 24 Hour Vital Signs Date Time Temp Pulse Resp B/P (MAP) Pulse Ox O2 Delivery O2 Flow Rate FiO2 04/21/19 12:00 5.0 28 04/21/19 12:00 T-piece 5.0 T-piece 5.0 04/21/19 11:00 82 23 132/33 (66) 100 04/21/19 10:53 85 20 99 T-Piece 6.0 28 85 24 96 04/21/19 10:00 86 26 125/26 (59) 98 04/21/19 09:00 82 18 112/23 (52) 100 04/21/19 08:30 82 20 114/26 (55) 99 04/21/19 08:09 86 04/21/19 08:00 98.6 85 22 95/27 (49) 100 04/21/19 08:00 5.0 28 04/21/19 08:00 T-piece 5.0 T-piece 5.0 04/21/19 07:00 90 22 118/24 (55) 99 04/21/19 06:52 83 23 100 T-Piece 6.0 28 90 22 97 04/21/19 06:42 97 T-Piece 6.0 28 04/21/19 06:00 88 22 114/28 (56) 99 04/21/19 05:00 83 21 120/31 (60) 99 04/21/19 04:00 T-piece 5.0 T-piece 5.0 04/21/19 04:00 5.0 28 04/21/19 04:00 98.8 87 21 100/35 (56) 100 04/21/19 04:00 85 04/21/19 03:33 86 17 100 T-Piece 5.0 28 85 18 99 1/21/20 03:00 85 22 114/36 (62) 98 04/21/19 02:00 82 21 104/35 (58) 98 04/21/19 01:28 98 T-Piece 5.0 28 04/21/19 01:00 80 20 119/44 (69) 100 04/21/19 00:00 5.0 28 04/21/19 00:00 98.0 81 21 103/42 (62) 99 04/21/19 00:00 T-piece 5.0 T-piece 5.0 04/21/19 00:00 81 04/20/19 23:36 79 21 100 T-Piece 5.0 28 78 19 99 04/20/19 23:00 81 21 128/41 (70) 98 04/20/19 22:00 82 20 117/84 (95) 100 04/20/19 21:00 81 17 129/42 (71) 100 04/20/19 20:00 T-piece 5.0 T-piece 5.0 04/20/19 20:00 98.8 78 21 118/34 (62) 100 04/20/19 20:00 5.0 28 04/20/19 20:00 80 04/20/19 19:37 100 T-Piece 5.0 28 04/20/19 19:37 80 22 100 T-Piece 5.0 28 83 19 100 04/20/19 19:00 80 20 101/18 (45) 97 04/20/19 18:00 84 22 130/57 (81) 99 04/20/19 17:00 83 20 119/29 (59) 100 04/20/19 16:00 80 04/20/19 16:00 T-piece 5.0 T-piece 5.0 04/20/19 16:00 5.0 28 04/20/19 16:00 98.2 89 17 158/49 (85) 99 04/20/19 15:26 81 21 100 T-Piece 5.0 28 82 20 100 04/20/19 15:00 82 18 124/34 (64) 100 04/20/19 14:00 85 22 117/37 (63) 100 04/20/19 13:19 100 T-Piece 6.0 28 04/20/19 13:00 83 22 110/29 (56) 100 Intake and Output 04/20/19 04/21/19 18:59 06:59 Intake Total 1445 ml 920 ml Output Total 825 ml 550 ml Balance 620 ml 370 ml Free Water 300 ml 200 ml IV Total 75 ml Tube Feeding 720 ml 720 ml Other 350 ml Output Urine Total 400 ml 400 ml Gastric Drainage Total 150 ml Other 425 ml 0 ml # Bowel Movements 4 2 Laboratory Tests 04/21/19 03:40: Sodium Level 143, Potassium Level 4.2, Chloride Level 107, Carbon Dioxide Level 26, Anion Gap 10, Blood Urea Nitrogen 61H, Creatinine 1.0, Estimat Glomerular Filtration Rate , Glucose Level 111H, Calcium Level 8.9, Total Bilirubin 0.2, Aspartate Amino Transf (AST/SGOT) 33, Alanine Aminotransferase (ALT/SGPT) 85H, Alkaline Phosphatase 132H, Total Protein 8.3H, Albumin 3.1L, Globulin 5.2, Albumin/Globulin Ratio 0.6L Height (Feet): 5 Height (Inches): 3.00 Weight (Pounds): 124 General Appearance: no apparent distress EENT: other - O2 to trach Cardiovascular: normal rate Respiratory/Chest: decreased breath sounds Abdomen: distended Objective no change Eric Cortez MD Apr 21, 2019 12:08
--- NOTE | 2019-04-21 12:49 | Surgery Progress Note ---
Surgery Progress Note Subjective Additional Comments no acute events Objective Last 24 Hour Vital Signs Date Time Temp Pulse Resp B/P (MAP) Pulse Ox O2 Delivery O2 Flow Rate FiO2 04/21/19 12:00 5.0 28 04/21/19 12:00 T-piece 5.0 T-piece 5.0 04/21/19 12:00 99.0 92 27 113/26 (55) 98 04/21/19 11:32 89 04/21/19 11:00 82 23 132/33 (66) 100 04/21/19 10:53 85 20 99 T-Piece 6.0 28 85 24 96 04/21/19 10:00 86 26 125/26 (59) 98 04/21/19 09:00 82 18 112/23 (52) 100 04/21/19 08:30 82 20 114/26 (55) 99 04/21/19 08:09 86 04/21/19 08:00 98.6 85 22 95/27 (49) 100 04/21/19 08:00 5.0 28 04/21/19 08:00 T-piece 5.0 T-piece 5.0 04/21/19 07:00 90 22 118/24 (55) 99 04/21/19 06:52 83 23 100 T-Piece 6.0 28 90 22 97 04/21/19 06:42 97 T-Piece 6.0 28 04/21/19 06:00 88 22 114/28 (56) 99 04/21/19 05:00 83 21 120/31 (60) 99 04/21/19 04:00 T-piece 5.0 T-piece 5.0 04/21/19 04:00 5.0 28 04/21/19 04:00 98.8 87 21 100/35 (56) 100 04/21/19 04:00 85 04/21/19 03:33 86 17 100 T-Piece 5.0 28 85 18 99 04/21/19 03:00 85 22 114/36 (62) 98 04/21/19 02:00 82 21 104/35 (58) 98 04/21/19 01:28 98 T-Piece 5.0 28 04/21/19 01:00 80 20 119/44 (69) 100 04/21/19 00:00 5.0 28 04/21/19 00:00 98.0 81 21 103/42 (62) 99 04/21/19 00:00 T-piece 5.0 T-piece 5.0 04/21/19 00:00 81 04/20/19 23:36 79 21 100 T-Piece 5.0 28 78 19 99 04/20/19 23:00 81 21 128/41 (70) 98 04/20/19 22:00 82 20 117/84 (95) 100 04/20/19 21:00 81 17 129/42 (71) 100 04/20/19 20:00 T-piece 5.0 T-piece 5.0 04/20/19 20:00 98.8 78 21 118/34 (62) 100 04/20/19 20:00 5.0 28 04/20/19 20:00 80 04/20/19 19:37 100 T-Piece 5.0 28 04/20/19 19:37 80 22 100 T-Piece 5.0 28 83 19 100 04/20/19 19:00 80 20 101/18 (45) 97 04/20/19 18:00 84 22 130/57 (81) 99 04/20/19 17:00 83 20 119/29 (59) 100 04/20/19 16:00 80 04/20/19 16:00 T-piece 5.0 T-piece 5.0 04/20/19 16:00 5.0 28 04/20/19 16:00 98.2 89 17 158/49 (85) 99 04/20/19 15:26 81 21 100 T-Piece 5.0 28 82 20 100 04/20/19 15:00 82 18 124/34 (64) 100 04/20/19 14:00 85 22 117/37 (63) 100 04/20/19 13:19 100 T-Piece 6.0 28 04/20/19 13:00 83 22 110/29 (56) 100 I&O Intake and Output 04/20/19 04/21/19 19:00 07:00 Intake Total 1370 ml 920 ml Output Total 825 ml 550 ml Balance 545 ml 370 ml Free Water 300 ml 200 ml Tube Feeding 720 ml 720 ml Other 350 ml Output Urine Total 400 ml 400 ml Gastric Drainage Total 150 ml Other 425 ml # Bowel Movements 4 2 Dressing: other Wound: other Drains: other Cardiovascular: RSR Respiratory: decreased breath sounds Abdomen: soft, present bowel sounds Extremities: no cyanosis Laboratory Tests Test 04/21/19 03:40 Sodium Level 143 MMOL/L (136-145) Potassium Level 4.2 MMOL/L (3.5-5.1) Chloride Level 107 MMOL/L (98-107) Carbon Dioxide Level 26 MMOL/L (21-32) Anion Gap 10 mmol/L (5-15) Blood Urea Nitrogen 61 mg/dL (7-18) H Creatinine 1.0 MG/DL (0.55-1.30) Estimat Glomerular Filtration Rate mL/min (>60) Glucose Level 111 MG/DL (74-106) H Calcium Level 8.9 MG/DL (8.5-10.1) Total Bilirubin 0.2 MG/DL (0.2-1.0) Aspartate Amino Transf (AST/SGOT) 33 U/L (15-37) Alanine Aminotransferase (ALT/SGPT) 85 U/L (12-78) H Alkaline Phosphatase 132 U/L (46-116) H Total Protein 8.3 G/DL (6.4-8.2) H Albumin 3.1 G/DL (3.4-5.0) L Globulin 5.2 g/dL Albumin/Globulin Ratio 0.6 (1.0-2.7) L Plan Problems: (1) Sacral decubitus ulcer Assessment & Plan: This is a 83-year-old female with multiple medical committees that is currently admitted for medical care and management and identified to have multiple wounds requiring care. On admission patient noted to have a resolved sacral decubitus ulcer. Has had prior care and is well-healed at this time. Will ensure it does not open up again. Patient has a right ischial decubitus ulcer that is resolved. Scar intact and well formed. Will monitor to ensure it does not open up again. Patient has a left ischial decubitus ulcer that can be identified to be stage IV with palpable bone that has been resolving as noted by the periwound tissue and scar but open area approximately 1 cm x 1.5 cm few millimeters deep to bone identified. Unsure if this is been to be completely healed prior and has since opened or if has been healing at this level. No foul odor no drainage was unsure local wound care until healed Bilateral heels soft without signs of injury Resolving pressure injury L ischium(L)1.8cm x (W)1cm.Scattered biofilm at base of wound. Edges flat and adherent with surrounding hyperpigmentation. No odor or exudate noted. Sacrum is pale pink with surrounding hyperpigmentation. Hyperpigmentation R ischium with small sheared area centrally.No areas of erythema or exudate noted. Both heels are soft but blanchable. Skin Assessed under collar of trach and no evidence of skin breakdown noted. All wound Tx. are effective and continued as ordered. Pt ahs an APM/Belén mattress overlay and is being repositioned per protocols and per tolerance.No new skin concerns noted. Full thickness pressure injury L Ischium with small amt biofilm (L)1.8cm x (W) 1cm. Surrounding pink hyperpigmentation. No odor or exudate noted. [place] hyperpigmentation from previous wound noted to sacrum. Pt also noted to have Cat 2 Skin Tear dorsal L hand, L 5th metatarsal extending into palm of hand. 80% skin flap in situ.Both heels are dry firm and blanchable. No other skin concerns noted. R ischial wound has resolved. [place] epithelial with surrounding hyperpigmentation. from historical wound. Full thickness pressure injury L ischium. [place] granulation at base of wound. Borders are macerated with Surrounding hyperpigmentation.Small amt non-odorous serous exudate noted.(L)0.7cm x (W)0.8cm. Skin hyperpigmentation from historical wound noted to Sacrum. Small sheared area noted to sacrococcygeal area.(L)0.4cm x (W)0.3cm.Small amt sanguineous exudate noted. Reabsorbed blister with semi-detached dry necrotic cap noted to web space of L thumb and L index fingers extending into palm of L hand. No odor or exudate noted. Skin assessed under tracheal collar and no erythema or evidence of Skin Breakdown noted. NO new skin concerns noted . Good hand hygiene provided to both hands. R hand contracted and fisted. Fingernails trimmed. Wound care provided along with Primary nurse. Wound Tx continued as ordered. New order obtained from to apply Betadine to wound L hand Daily. Tx done as ordered. L hand wrapped with kerlix weaving kerlix between fingers to separate fingers. Moisture Barrier applied to sacrum ,R ischium. Each site covered with Optifoam drsg. Both lower ext washed and moisturized. Cavilon Skin Barrier applied to both heels.Each heel covered with Optifoam drsgs. Pt positioned with pillows and both heels off-loaded with pillow. Pt wounds are resolving. Loose necrotic cap within web space of L index finger and L thumb easily removed with gentle friction. Base of wound is hypergranular with 10% necrosis. Borders are macerated. Application of Silver Nitrate to hypergranular base done. Cav[place] Skin Barrier applied to borders . Good hand hygiene provided. Wound covered with Abd pad. L hand wrapped with Kerlix weaving Kerlix between digitsof L hand. Pressure injury L ischium resolving. Base iof wound is pale pink and dry with surrounding hyperpigmentation and scar from previous wound. Hyperpigmentation with historical scars noted to Sacrum and R ischium. Both heels are soft and blanchable. Skin Assessed under trach collar and no evidence of skin breakdown noted. Tx.Plan: Apply Betadine to wound L hand. Cover with Gauze and wrap with Kerlix Daily and prn. Cleanse L ischial wound with Saline. Apply Therahoney. Apply Moisture Barrier periwound. Cover with Optifoam drsgevery 3 days and prn. Apply Moisture Barrier Paste to R ischium and Sacrum. Cover each area with Optifoam drsg. Change every 3 days and prn. Apply Cavilon Skin Barrier to both heels. Cover each heel with Optifoam drsg. Change every 7 days and prn. Cleanse Blister Dorsal and palm of L hand with saline. Versatel One Silicone Contact Layer(Applied). Apply Silvasorb Gel. Wrap with Kerlix Gauze.Change every 7 days and prn. Apply Moisture Barrier to sacrum. Cover with Optifoam drsg. Change every 3 days and prn. APM/BELÉN Mattress overlay. Reposition at least every 2hours or as tolerated. Off-load heels with pillow. Nutritional optimization We will monitor follow with recommendations cont with above upon d/c wounds healing overall improving (2) Sepsis Assessment & Plan: IV abx as per ID trend labs improving wounds unlikely etiology likely respiratory imaging noted and okay abnormal lft's stable PICC on Abx in ICU for desaturation CXR with consolidation cont with frequent suctioning d/c planning g j via GI daughter wants close attention to wounds and management to ensure healing Evidence of left lower lobe pneumonia, also previously demonstrated Gastrostomy in good position Mild diastasis of the rectus abdominis musculature again demonstrated Retrosacral decubitus changes, better depicted on prior exam which included the pelvis Small hiatal hernia with evidence of trace gastroesophageal reflux Discussed with GI. Recommend GJ family still pending decision transfuse prbc prn monitor h/h monitor bm LFTs improving trending down (3) Feeding by G-tube Assessment & Plan: DAILY ESTIMATED NEEDS: Needs based on Pulmonary, wounds, bedbound/ 61kg adj 25-30 kcals/kg 5464-5232 total kcals 1.25-2 g protein/kg 76-122 g total protein 25-30 mL/kg 5560-8915 total fluid mLs NUTRITION DIAGNOSIS: * Increased kcal/prot needs R/T wound healing as evidenced by BL buttocks and sacral wound photos, refer to eval. * Swallowing difficulty R/T respiratory status as evidenced by pt on T-collar, s/p G-J conversion CURRENT TF:Glucerna 1.5 @ 50ml/hr x 24 hrs ENTERAL NUTRITION RECOMMENDATIONS: Glucerna 1.5 @ 50ml/hr x 24 hrs to provide 1200ml, 1800 kcal, 99g pro, 911ml free H2O - Maintain at current rate as tolerated to meet 100% est needs - HOB over 30 degrees - INCREASE water flush of 170ml q 6 hrs ADDITIONAL RECOMMENDATIONS: 1) RE-calibrate bedscale wt: fluctuating daily wts (108#-136# last 6 days) 2) Wound healing: Add Cristian 1pkt BID w/ continued good TF tolerance. 3) Increase water flushes, monitor for signs of water deficits 4) Monitor BGs closely, need for NISS -> now w/ improved BGs 5) Monitor for continued good TF tolerance 6) Monitor K : elev K on 03/25, s/p Kdur BID, now dc'ed. (4) Chronic vegetative state Assessment & Plan: incontinence of urine and stool. can soil dressings. nurses doing great job with monitoring and changing prn (5) Leukocytosis Walter Madera Apr 21, 2019 12:48
--- NOTE | 2019-04-21 14:36 | NUR ---
NURSE NOTES: Pt turned, repositioned and oral care completed. No new orders at this time, pt's status remains the same. No distress noted.
--- NOTE | 2019-04-21 16:45 | General Progress Note ---
Assessment/Plan Problem List: (1) Seizure ICD Codes: R56.9 - Unspecified convulsions SNOMED: 93677308 (2) Anemia ICD Codes: D64.9 - Anemia, unspecified SNOMED: 973822476 Qualifiers: Qualified Codes: D64.9 - Anemia, unspecified (3) Sepsis ICD Codes: A41.9 - Sepsis, unspecified organism SNOMED: 00626108, 821009572 Qualifiers: Qualified Codes: A41.9 - Sepsis, unspecified organism (4) Respiratory failure with hypoxia ICD Codes: J96.91 - Respiratory failure, unspecified with hypoxia SNOMED: 63902773658093387 Qualifiers: Qualified Codes: J96.21 - Acute and chronic respiratory failure with hypoxia (5) HCAP (healthcare-associated pneumonia) ICD Codes: J18.9 - Pneumonia, unspecified organism SNOMED: 871419421, 484765733 (6) Sacral decubitus ulcer ICD Codes: L89.159 - Pressure ulcer of sacral region, unspecified stage SNOMED: 743570483 (7) HTN (hypertension) ICD Codes: I10 - Essential (primary) hypertension SNOMED: 81357313 (8) Chronic vegetative state ICD Codes: R40.3 - Persistent vegetative state SNOMED: 90394602 (9) Chronic respiratory failure ICD Codes: J96.10 - Chronic respiratory failure, unspecified whether with hypoxia or hypercapnia SNOMED: 99336490 (10) Limited mobility ICD Codes: Z74.09 - Other reduced mobility SNOMED: 2883435 Status: stable, progressing Assessment/Plan: vent as needed resp rx suctioning j tube feeds g port to gravity skin care sz rx check labs/monitor Na level bowel regime dc planning Subjective ROS Limited/Unobtainable: Yes Constitutional: Reports: malaise, weakness HEENT: Reports: no symptoms Cardiovascular: Reports: no symptoms Respiratory: Reports: cough, shortness of breath, sputum Gastrointestinal/Abdominal: Reports: difficulty swallowing Genitourinary: Reports: no symptoms Neurologic/Psychiatric: Reports: pre-existing deficit, seizure Endocrine: Reports: no symptoms Hematologic/Lymphatic: Reports: anemia Allergies: Coded Allergies: CODEINE (Verified Allergy, Unknown, HIVES, 09/15/09) Subjective no events. no reports of bleeding. tolerating feeds, no vomiting. minimal secretions. no szs Objective Last 24 Hour Vital Signs Date Time Temp Pulse Resp B/P (MAP) Pulse Ox O2 Delivery O2 Flow Rate FiO2 04/21/19 16:00 T-piece 5.0 T-piece 5.0 04/21/19 16:00 5.0 28 04/21/19 16:00 99.7 91 26 119/24 (55) 100 04/21/19 15:49 93 04/21/19 15:04 93 25 113/28 (56) 100 04/21/19 15:00 91 24 113/28 (56) 100 04/21/19 14:36 94 25 100 T-Piece 6.0 28 93 24 100 04/21/19 14:00 88 23 111/23 (52) 97 04/21/19 13:07 99 T-Piece 6.0 28 04/21/19 13:00 90 23 122/31 (61) 97 04/21/19 12:00 5.0 28 04/21/19 12:00 T-piece 5.0 T-piece 5.0 04/21/19 12:00 99.0 92 27 113/26 (55) 98 04/21/19 11:32 89 04/21/19 11:00 82 23 132/33 (66) 100 04/21/19 10:53 85 20 99 T-Piece 6.0 28 85 24 96 04/21/19 10:00 86 26 125/26 (59) 98 04/21/19 09:00 82 18 112/23 (52) 100 04/21/19 08:30 82 20 114/26 (55) 99 04/21/19 08:09 86 04/21/19 08:00 98.6 85 22 95/27 (49) 100 04/21/19 08:00 5.0 28 04/21/19 08:00 T-piece 5.0 T-piece 5.0 04/21/19 07:00 90 22 118/24 (55) 99 04/21/19 06:52 83 23 100 T-Piece 6.0 28 90 22 97 04/21/19 06:42 97 T-Piece 6.0 28 04/21/19 06:00 88 22 114/28 (56) 99 04/21/19 05:00 83 21 120/31 (60) 99 04/21/19 04:00 T-piece 5.0 T-piece 5.0 04/21/19 04:00 5.0 28 04/21/19 04:00 98.8 87 21 100/35 (56) 100 04/21/19 04:00 85 04/21/19 03:33 86 17 100 T-Piece 5.0 28 85 18 99 04/21/19 03:00 85 22 114/36 (62) 98 04/21/19 02:00 82 21 104/35 (58) 98 04/21/19 01:28 98 T-Piece 5.0 28 04/21/19 01:00 80 20 119/44 (69) 100 04/21/19 00:00 5.0 28 04/21/19 00:00 98.0 81 21 103/42 (62) 99 04/21/19 00:00 T-piece 5.0 T-piece 5.0 04/21/19 00:00 81 04/20/19 23:36 79 21 100 T-Piece 5.0 28 78 19 99 04/20/19 23:00 81 21 128/41 (70) 98 04/20/19 22:00 82 20 117/84 (95) 100 04/20/19 21:00 81 17 129/42 (71) 100 04/20/19 20:00 T-piece 5.0 T-piece 5.0 04/20/19 20:00 98.8 78 21 118/34 (62) 100 04/20/19 20:00 5.0 28 04/20/19 20:00 80 04/20/19 19:37 100 T-Piece 5.0 28 04/20/19 19:37 80 22 100 T-Piece 5.0 28 83 19 100 04/20/19 19:00 80 20 101/18 (45) 97 04/20/19 18:00 84 22 130/57 (81) 99 04/20/19 17:00 83 20 119/29 (59) 100 Intake and Output 04/20/19 04/21/19 19:00 07:00 Intake Total 1370 ml 920 ml Output Total 825 ml 550 ml Balance 545 ml 370 ml Free Water 300 ml 200 ml Tube Feeding 720 ml 720 ml Other 350 ml Output Urine Total 400 ml 400 ml Gastric Drainage Total 150 ml Other 425 ml # Bowel Movements 4 2 Laboratory Tests 04/21/19 03:40: Sodium Level 143, Potassium Level 4.2, Chloride Level 107, Carbon Dioxide Level 26, Anion Gap 10, Blood Urea Nitrogen 61H, Creatinine 1.0, Estimat Glomerular Filtration Rate , Glucose Level 111H, Calcium Level 8.9, Total Bilirubin 0.2, Aspartate Amino Transf (AST/SGOT) 33, Alanine Aminotransferase (ALT/SGPT) 85H, Alkaline Phosphatase 132H, Total Protein 8.3H, Albumin 3.1L, Globulin 5.2, Albumin/Globulin Ratio 0.6L Height (Feet): 5 Height (Inches): 3.00 Weight (Pounds): 124 Objective General Appearance: WD/WN, confused. on trach collar Neck: supple Cardiovascular: normal rate, regular rhythm Respiratory/Chest: chest wall non-tender, rhonchi - bilaterally(minimal) Abdomen: normal bowel sounds, non tender, soft, no organomegaly Edema: no edema noted Arm (L), no edema noted Arm (R), no edema noted Leg (L), no edema noted Leg (R), no edema noted Pedal (L), no edema noted Pedal (R), no edema noted Generalized Neurologic: disoriented, unresponsive, aphasia Irvin Beltrán MD Apr 21, 2019 16:45
--- NOTE | 2019-04-21 17:15 | NUR ---
NURSE NOTES: Pt had a large brown soft BM. Pt fully cleaned and repositioned. Bedside blood glucose was 108. No distress noted. Will continue to monitor.
--- NOTE | 2019-04-21 19:13 | NUR ---
HAND-OFF: Report given to JEANNINE Panchal.
--- NOTE | 2019-04-21 19:20 | NUR ---
NURSE NOTES: Report received from JEANNINE Mari. Observed pt lying in the bed, obtunded, open eyes, but non-verbal. SR on monitor technician. On T-piece, FIO2 28%, 5L, no sob noted. GT intact and draining to gravity. JT intact, running Vital AF 1.2 at 60cc/hr. PIcc at R UA , TKO. L H dressing intact, dry and clean. Bed in the lowest position. Side rails up and padded. Will continue to monitor.
[2019-04-21] MEDS: Dyna-Hex 2% Top Sol 2oz TOPIC SCH (20:10)
--- NOTE | 2019-04-21 20:20 | General Progress Note ---
Assessment/Plan Status: stable, progressing Assessment/Plan: Assessment - N/V - resolved with G --> J conversion - constipation - partly due to low residue formula used, good response to sorbitol - Elevated Alk phos / LFT - CT negative - abd U/S negative - check hepatitis serologies - negative - possibly MURRAY / Fatty liver - will periodically monitor - Anemia with OB (-) stools - Resp failure, s/p Trach - dysphagia, s/p PEG --> GJ tube - OBS, vegetative obtunded unresponsive state, bedbound with contracted extremities, - h/o minor GJ tube site irritation - Early J port occlusion, possibly due to thick diabetic TF formula - Elevated glucose - elevated BUN/Cr - poor Prognosis Recommendations - daily sorbitol, and PRN sorbitol - Follow BUN/Cr - Cristian BID - antibiotic ointment to GJT site PRN - aspiration precautions - elevate HOB - Vital AF 1.2 - check q 6 hour FS - transfuse to keep Hg > 7 - J tube feeds - G tube drain Subjective Allergies: Coded Allergies: CODEINE (Verified Allergy, Unknown, HIVES, 09/15/09) Subjective above noted tolerating TF via J port d/w RN (+) BM Objective Last 24 Hour Vital Signs Date Time Temp Pulse Resp B/P (MAP) Pulse Ox O2 Delivery O2 Flow Rate FiO2 04/21/19 19:03 99 T-Piece 6.0 28 04/21/19 19:03 90 25 100 T-Piece 6.0 28 82 25 99 04/21/19 19:00 87 23 110/21 (50) 98 04/21/19 18:00 89 24 117/68 (84) 100 04/21/19 17:00 95 24 134/42 (72) 100 04/21/19 16:00 T-piece 5.0 T-piece 5.0 04/21/19 16:00 5.0 28 04/21/19 16:00 99.7 91 26 119/24 (55) 100 04/21/19 15:49 93 04/21/19 15:04 93 25 113/28 (56) 100 04/21/19 15:00 91 24 113/28 (56) 100 04/21/19 14:36 94 25 100 T-Piece 6.0 28 93 24 100 04/21/19 14:00 88 23 111/23 (52) 97 04/21/19 13:07 99 T-Piece 6.0 28 04/21/19 13:00 90 23 122/31 (61) 97 04/21/19 12:00 5.0 28 04/21/19 12:00 T-piece 5.0 T-piece 5.0 04/21/19 12:00 99.0 92 27 113/26 (55) 98 04/21/19 11:32 89 04/21/19 11:00 82 23 132/33 (66) 100 04/21/19 10:53 85 20 99 T-Piece 6.0 28 85 24 96 04/21/19 10:00 86 26 125/26 (59) 98 04/21/19 09:00 82 18 112/23 (52) 100 04/21/19 08:30 82 20 114/26 (55) 99 04/21/19 08:09 86 04/21/19 08:00 98.6 85 22 95/27 (49) 100 04/21/19 08:00 5.0 28 04/21/19 08:00 T-piece 5.0 T-piece 5.0 04/21/19 07:00 90 22 118/24 (55) 99 04/21/19 06:52 83 23 100 T-Piece 6.0 28 90 22 97 04/21/19 06:42 97 T-Piece 6.0 28 04/21/19 06:00 88 22 114/28 (56) 99 04/21/19 05:00 83 21 120/31 (60) 99 04/21/19 04:00 T-piece 5.0 T-piece 5.0 04/21/19 04:00 5.0 28 04/21/19 04:00 98.8 87 21 100/35 (56) 100 04/21/19 04:00 85 04/21/19 03:33 86 17 100 T-Piece 5.0 28 85 18 99 04/21/19 03:00 85 22 114/36 (62) 98 04/21/19 02:00 82 21 104/35 (58) 98 04/21/19 01:28 98 T-Piece 5.0 28 04/21/19 01:00 80 20 119/44 (69) 100 04/21/19 00:00 5.0 28 04/21/19 00:00 98.0 81 21 103/42 (62) 99 04/21/19 00:00 T-piece 5.0 T-piece 5.0 04/21/19 00:00 81 04/20/19 23:36 79 21 100 T-Piece 5.0 28 78 19 99 04/20/19 23:00 81 21 128/41 (70) 98 04/20/19 22:00 82 20 117/84 (95) 100 04/20/19 21:00 81 17 129/42 (71) 100 Intake and Output 04/20/19 04/21/19 19:00 07:00 Intake Total 1370 ml 920 ml Output Total 825 ml 550 ml Balance 545 ml 370 ml Free Water 300 ml 200 ml Tube Feeding 720 ml 720 ml Other 350 ml Output Urine Total 400 ml 400 ml Gastric Drainage Total 150 ml Other 425 ml # Bowel Movements 4 2 Laboratory Tests 04/21/19 03:40: Sodium Level 143, Potassium Level 4.2, Chloride Level 107, Carbon Dioxide Level 26, Anion Gap 10, Blood Urea Nitrogen 61H, Creatinine 1.0, Estimat Glomerular Filtration Rate , Glucose Level 111H, Calcium Level 8.9, Total Bilirubin 0.2, Aspartate Amino Transf (AST/SGOT) 33, Alanine Aminotransferase (ALT/SGPT) 85H, Alkaline Phosphatase 132H, Total Protein 8.3H, Albumin 3.1L, Globulin 5.2, Albumin/Globulin Ratio 0.6L Height (Feet): 5 Height (Inches): 3.00 Weight (Pounds): 124 Objective Debilitated AA woman non-verbal, obtunded NCAT (+) trach coarse BS RR obese abd, (+) GJT no edema (+) contractured extremities Celio Vaughan MD Apr 21, 2019 20:20
--- NOTE | 2019-04-21 22:19 | NUR ---
NURSE NOTES: Pt sleeping in the bed, calm. SR on classroom monitor. No acute distress noted at this time. Reposition done. Oral care given. Frothy sputum suctioned. Will continue to monitor.
[2019-04-22] VITALS (26 sets, daily range): BP systolic 95–161; BP diastolic 18–52
--- NOTE | 2019-04-22 | NUR ---
NURSE NOTES: No acute distress noted at this time. Pt sleeping, calm and comfortable. Oral care given. Reposition done. White sputum suctioned. BS 104 noted. Will continue to monitor.
--- NOTE | 2019-04-22 01:55 | NUR ---
NURSE NOTES: No distress noted at this time. SR on classroom monitor. No SOB on Tpiece. GT draining to gravity, noted 50cc output. Will continue to monitor.
[2019-04-22] MEDS: Albuterol/Ipratropium 3ml neb HHN SCH ×6 (03:07→22:53)
--- NOTE | 2019-04-22 04:00 | NUR ---
NURSE NOTES: Pt sleeping in the bed, calm and comfortable. No distress noted at this time. Bed bath given. Oral care given. Reposition done. Will continue to monitor.
--- NOTE | 2019-04-22 04:15 | Progress Note ---
DATE: 04/21/2019 CARDIOLOGY PROGRESS NOTE SUBJECTIVE: Status unchanged on T-tube support. Continues with nutrition by GJ tube. Monitored rhythm, sinus. OBJECTIVE: VITAL SIGNS: Blood pressure 119/24, pulse 91, and respirations 26. LUNGS: Diminished breath sounds. HEART: Regular rhythm and rate. Normal S1 and S2. ABDOMEN: Soft. EXTREMITIES: No edema. LABORATORY DATA: BUN 61 and creatinine 1. Albumin 3.1. Potassium 4.2. IMPRESSION: Late status, unchanged. Continues to have prerenal azotemia and mild transaminitis. Cardiovascular parameters stable. We will continue current support and maintain adequate hydration with close monitoring of volume status and cardiorenal function. Bg Hagen M.D. DR: DIVYA JOB#: [id number] CC:
--- NOTE | 2019-04-22 06:57 | NUR ---
HAND-OFF: Report given to JEANNINE Suggs.
--- NOTE | 2019-04-22 07:03 | General Progress Note ---
Assessment/Plan Problem List: (1) Seizure ICD Codes: R56.9 - Unspecified convulsions SNOMED: 48955247 (2) Anemia ICD Codes: D64.9 - Anemia, unspecified SNOMED: 493200498 Qualifiers: Qualified Codes: D64.9 - Anemia, unspecified (3) Sepsis ICD Codes: A41.9 - Sepsis, unspecified organism SNOMED: 29347401, 267558373 Qualifiers: Qualified Codes: A41.9 - Sepsis, unspecified organism (4) Respiratory failure with hypoxia ICD Codes: J96.91 - Respiratory failure, unspecified with hypoxia SNOMED: 05380259436231568 Qualifiers: Qualified Codes: J96.21 - Acute and chronic respiratory failure with hypoxia (5) HCAP (healthcare-associated pneumonia) ICD Codes: J18.9 - Pneumonia, unspecified organism SNOMED: 012072325, 115390709 (6) Sacral decubitus ulcer ICD Codes: L89.159 - Pressure ulcer of sacral region, unspecified stage SNOMED: 058531437 (7) HTN (hypertension) ICD Codes: I10 - Essential (primary) hypertension SNOMED: 21382841 (8) Chronic vegetative state ICD Codes: R40.3 - Persistent vegetative state SNOMED: 13191178 (9) Chronic respiratory failure ICD Codes: J96.10 - Chronic respiratory failure, unspecified whether with hypoxia or hypercapnia SNOMED: 64509996 (10) Limited mobility ICD Codes: Z74.09 - Other reduced mobility SNOMED: 0188311 Status: stable, progressing Assessment/Plan: vent as needed resp rx suctioning j tube feeds g port to gravity skin care sz rx check labs/monitor Na level bowel regime dc planning Subjective ROS Limited/Unobtainable: No Constitutional: Reports: malaise, weakness HEENT: Reports: no symptoms Cardiovascular: Reports: no symptoms Respiratory: Reports: cough, shortness of breath, sputum Gastrointestinal/Abdominal: Reports: difficulty swallowing Genitourinary: Reports: no symptoms Neurologic/Psychiatric: Reports: pre-existing deficit, seizure Endocrine: Reports: no symptoms Hematologic/Lymphatic: Reports: anemia Allergies: Coded Allergies: CODEINE (Verified Allergy, Unknown, HIVES, 09/15/09) All Systems: reviewed and negative except above Subjective no events. no reports of bleeding. tolerating feeds, no vomiting. minimal secretions. no szs Objective Last 24 Hour Vital Signs Date Time Temp Pulse Resp B/P (MAP) Pulse Ox O2 Delivery O2 Flow Rate FiO2 04/22/19 06:00 80 20 104/43 (63) 100 04/22/19 05:00 83 22 124/36 (65) 100 04/22/19 04:00 5.0 28 04/22/19 04:00 80 04/22/19 04:00 98.2 84 18 137/41 (73) 100 04/22/19 04:00 T-piece 5.0 T-piece 5.0 04/22/19 03:07 83 25 100 T-Piece 6.0 28 87 20 100 04/22/19 03:00 75 23 95/19 (44) 99 04/22/19 02:00 82 21 97/22 (47) 98 04/22/19 01:30 82 20 112/26 (54) 99 04/22/19 01:18 98 T-Piece 6.0 28 04/22/19 01:00 82 21 114/34 (60) 99 04/22/19 00:30 83 21 99/18 (45) 100 04/22/19 00:00 98.0 83 22 122/25 (57) 99 04/22/19 00:00 5.0 28 04/22/19 00:00 T-piece 5.0 T-piece 5.0 04/22/19 00:00 76 04/21/19 23:00 83 22 125/32 (63) 100 04/21/19 22:54 85 23 100 T-Piece 6.0 28 83 22 100 04/21/19 22:30 83 23 100/43 (62) 98 04/21/19 22:00 79 21 101/17 (45) 100 04/21/19 21:00 85 22 121/21 (54) 100 04/21/19 20:00 5.0 28 04/21/19 20:00 86 04/21/19 20:00 98.5 90 21 121/59 (79) 97 04/21/19 20:00 T-piece 5.0 T-piece 5.0 04/21/19 19:03 99 T-Piece 6.0 28 04/21/19 19:03 90 25 100 T-Piece 6.0 28 82 25 99 04/21/19 19:00 87 23 110/21 (50) 98 04/21/19 18:00 89 24 117/68 (84) 100 04/21/19 17:00 95 24 134/42 (72) 100 04/21/19 16:00 T-piece 5.0 T-piece 5.0 04/21/19 16:00 5.0 28 04/21/19 16:00 99.7 91 26 119/24 (55) 100 04/21/19 15:49 93 04/21/19 15:04 93 25 113/28 (56) 100 04/21/19 15:00 91 24 113/28 (56) 100 04/21/19 14:36 94 25 100 T-Piece 6.0 28 93 24 100 04/21/19 14:00 88 23 111/23 (52) 97 04/21/19 13:07 99 T-Piece 6.0 28 04/21/19 13:00 90 23 122/31 (61) 97 04/21/19 12:00 5.0 28 04/21/19 12:00 T-piece 5.0 T-piece 5.0 04/21/19 12:00 99.0 92 27 113/26 (55) 98 04/21/19 11:32 89 04/21/19 11:00 82 23 132/33 (66) 100 04/21/19 10:53 85 20 99 T-Piece 6.0 28 85 24 96 04/21/19 10:00 86 26 125/26 (59) 98 04/21/19 09:00 82 18 112/23 (52) 100 04/21/19 08:30 82 20 114/26 (55) 99 04/21/19 08:09 86 04/21/19 08:00 98.6 85 22 95/27 (49) 100 04/21/19 08:00 5.0 28 04/21/19 08:00 T-piece 5.0 T-piece 5.0 Intake and Output 04/21/19 04/22/19 18:59 06:59 Intake Total 1320 ml 1320 ml Output Total 630 ml 60 ml Balance 690 ml 1260 ml Free Water 500 ml 300 ml Tube Feeding 720 ml 720 ml Other 100 ml 300 ml Output Urine Total 350 ml Other 280 ml 60 ml # Voids 1 # Bowel Movements 1 2 Height (Feet): 5 Height (Inches): 3.00 Weight (Pounds): 124 Objective General Appearance: WD/WN, confused. on trach collar Neck: supple Cardiovascular: normal rate, regular rhythm Respiratory/Chest: chest wall non-tender, rhonchi - bilaterally(minimal) Abdomen: normal bowel sounds, non tender, soft, no organomegaly Edema: no edema noted Arm (L), no edema noted Arm (R), no edema noted Leg (L), no edema noted Leg (R), no edema noted Pedal (L), no edema noted Pedal (R), no edema noted Generalized Neurologic: disoriented, unresponsive, aphasia Irvin Beltrán MD Apr 22, 2019 07:03
--- NOTE | 2019-04-22 07:15 | NUR ---
NURSE NOTES: Late entry: PT and report received from JEANNINE Panchal; PT is obtunded, open eyes, no tracking of staff, non-verbal; no S/S of respiratory distress noted PT saturating at 100%, no gurgling or secretions noted during morning rounds from t-piece will continue to monitor, rn cardiac rehab shows SR; PT has GT for meds / JT for feeding running Vital AF infusing 60cc/hr; 20cc residual noted on drawback flushed with 30cc water; purewick attached to wall suction remains patent, PT has JOSY-PICC both lumens flushes well patent, side rails are padded for seizure precaution, bed alarm is on, side rails x 2 raised, will continue to monitor PT.
--- NOTE | 2019-04-22 07:30 | NUR ---
NURSE NOTES: Late entry: MD Jerel made rounds, updates given with PM shift nurse JEANNINE Panchal. Will continue to monitor PT.
--- NOTE | 2019-04-22 07:59 | Infectious Diseases Prog Note ---
Assessment/Plan Assessment/Plan A 1. Providencia & Klebsiella pneumonia treated 2. respiratory failure 3. hypertension 4. CVA 5. dementia 6. sacral decubitus ulcer 7. rectal VRE colonization 8. Anemia 9. Proteus UTI 10. Acute renal failure 11. Leukocytosis resolved P 1.Observe off antibiotic 2. Frequent suctioning 3. Remove PICC line before discharge Subjective ROS Limited/Unobtainable: Yes Allergies: Coded Allergies: CODEINE (Verified Allergy, Unknown, HIVES, 09/15/09) Objective Vital Signs Last 24 Hour Vital Signs Date Time Temp Pulse Resp B/P (MAP) Pulse Ox O2 Delivery O2 Flow Rate FiO2 04/22/19 07:38 100 T-Piece 6.0 28 04/22/19 07:38 89 22 100 T-Piece 6.0 28 82 22 100 04/22/19 06:00 80 20 104/43 (63) 100 04/22/19 05:00 83 22 124/36 (65) 100 04/22/19 04:00 5.0 28 04/22/19 04:00 80 04/22/19 04:00 98.2 84 18 137/41 (73) 100 04/22/19 04:00 T-piece 5.0 T-piece 5.0 04/22/19 03:07 83 25 100 T-Piece 6.0 28 87 20 100 04/22/19 03:00 75 23 95/19 (44) 99 04/22/19 02:00 82 21 97/22 (47) 98 04/22/19 01:30 82 20 112/26 (54) 99 04/22/19 01:18 98 T-Piece 6.0 28 04/22/19 01:00 82 21 114/34 (60) 99 04/22/19 00:30 83 21 99/18 (45) 100 04/22/19 00:00 98.0 83 22 122/25 (57) 99 04/22/19 00:00 5.0 28 04/22/19 00:00 T-piece 5.0 T-piece 5.0 04/22/19 00:00 76 04/21/19 23:00 83 22 125/32 (63) 100 04/21/19 22:54 85 23 100 T-Piece 6.0 28 83 22 100 04/21/19 22:30 83 23 100/43 (62) 98 04/21/19 22:00 79 21 101/17 (45) 100 04/21/19 21:00 85 22 121/21 (54) 100 04/21/19 20:00 5.0 28 04/21/19 20:00 86 04/21/19 20:00 98.5 90 21 121/59 (79) 97 04/21/19 20:00 T-piece 5.0 T-piece 5.0 04/21/19 19:03 99 T-Piece 6.0 28 04/21/19 19:03 90 25 100 T-Piece 6.0 28 82 25 99 04/21/19 19:00 87 23 110/21 (50) 98 04/21/19 18:00 89 24 117/68 (84) 100 04/21/19 17:00 95 24 134/42 (72) 100 04/21/19 16:00 T-piece 5.0 T-piece 5.0 04/21/19 16:00 5.0 28 04/21/19 16:00 99.7 91 26 119/24 (55) 100 04/21/19 15:49 93 04/21/19 15:04 93 25 113/28 (56) 100 04/21/19 15:00 91 24 113/28 (56) 100 04/21/19 14:36 94 25 100 T-Piece 6.0 28 93 24 100 04/21/19 14:00 88 23 111/23 (52) 97 04/21/19 13:07 99 T-Piece 6.0 28 04/21/19 13:00 90 23 122/31 (61) 97 04/21/19 12:00 5.0 28 04/21/19 12:00 T-piece 5.0 T-piece 5.0 04/21/19 12:00 99.0 92 27 113/26 (55) 98 04/21/19 11:32 89 04/21/19 11:00 82 23 132/33 (66) 100 04/21/19 10:53 85 20 99 T-Piece 6.0 28 85 24 96 04/21/19 10:00 86 26 125/26 (59) 98 04/21/19 09:00 82 18 112/23 (52) 100 04/21/19 08:30 82 20 114/26 (55) 99 1/21/20 08:09 86 04/21/19 08:00 98.6 85 22 95/27 (49) 100 04/21/19 08:00 5.0 28 04/21/19 08:00 T-piece 5.0 T-piece 5.0 Height (Feet): 5 Height (Inches): 3.00 Weight (Pounds): 124 General Appearance: no acute distress HEENT: status post trach Respiratory/Chest: other - on T bar, Cardiovascular: normal rate, other - R arm PICC line Abdomen: soft, non tender, other - GT feeding Extremities: no edema Skin: ulcers Neurologic/Psychiatric: unresponsiveness, aphasia Current Medications Medications (Trade) Dose Ordered Sig/Maicol Route PRN Reason Start Time Stop Time Status Last Admin Dose Admin Acetaminophen (Tylenol) 650 mg Q6H PRN GT Mild Pain/Temp > 100.5 03/23/19 15:15 04/22/19 15:14 04/15/19 22:23 Albuterol/ Ipratropium (Albuterol/ Ipratropium) 3 ml Q4HRT HHN 04/20/19 11:00 04/25/19 10:59 04/22/19 07:37 Atropine Sulfate (Atropine Opth Adriana) 1 drop THREE TIMES A DAY SL 04/08/19 09:00 05/07/19 20:59 04/21/19 17:16 Chlorhexidine Gluconate (Cesilia-Hex 2%) 1 applic DAILY@2000 TOPIC 04/12/19 20:00 05/12/19 19:59 04/21/19 20:10 Folic Acid (Folate) 1 mg DAILY GT 04/08/19 09:00 05/08/19 08:59 04/21/19 09:22 Heparin Sodium (Porcine) (Heparin 5000 units/ml) 5,000 units EVERY 12 HOURS SUBQ 04/01/19 10:00 05/01/19 09:59 04/21/19 20:12 Hydralazine HCl (Apresoline) 25 mg Q6H PRN ORAL SBP above 150 04/06/19 02:45 05/06/19 02:44 04/06/19 11:15 Lansoprazole (Prevacid) 30 mg Q12HR GT 03/29/19 09:00 04/24/19 20:59 04/21/19 20:10 Levetiracetam (Keppra) 750 mg Q12HR GT 04/07/19 21:00 05/07/19 20:59 04/21/19 20:10 Sorbitol (Sorbitol) 30 ml BIDPRN PRN ORAL Constipation 04/13/19 11:15 05/13/19 11:14 Sorbitol (sorbitoL) 30 ml DAILY GT 04/14/19 09:00 05/14/19 08:59 04/21/19 09:21 Chauncey Liriano MD Apr 22, 2019 07:59
[2019-04-22] MEDS: Sorbitol Solution UD 30ml GT SCH (09:10)
[2019-04-22] MEDS: Heparin 5000 units/ml inj SUBQ SCH ×2 (09:11→20:32)
--- NOTE | 2019-04-22 09:58 | Nephrology Progress Note ---
Assessment/Plan Problem List: (1) Acute renal failure (ARF) Assessment: Cr stable (2) Chronic respiratory failure (3) Anemia (4) Sepsis Assessment Acute renal failure Respiratory failure - Trach Low Mag- Low k , Low Na Anemia UTI / Sepsis Proteinuria / HypoAlbuminemia high Trigs Sz decubs bed bound DNR Plan Transfused previously now has JT bolus Albumin as needed K and Mag and Phos supplement as needed Hydrate as needed Urine studies avoid Nephrotoxics mag K Phos supplements as needed monitor renal parameters Subjective ROS Limited/Unobtainable: Yes Objective Objective Last 24 Hour Vital Signs Date Time Temp Pulse Resp B/P (MAP) Pulse Ox O2 Delivery O2 Flow Rate FiO2 04/22/19 08:00 5.0 28 04/22/19 08:00 98.6 84 22 121/29 (59) 100 04/22/19 07:38 100 T-Piece 6.0 28 04/22/19 07:38 89 22 100 T-Piece 6.0 28 82 22 100 04/22/19 07:00 82 21 127/27 (60) 100 04/22/19 06:00 80 20 104/43 (63) 100 04/22/19 05:00 83 22 124/36 (65) 100 04/22/19 04:00 5.0 28 04/22/19 04:00 80 04/22/19 04:00 98.2 84 18 137/41 (73) 100 04/22/19 04:00 T-piece 5.0 T-piece 5.0 04/22/19 03:07 83 25 100 T-Piece 6.0 28 87 20 100 04/22/19 03:00 75 23 95/19 (44) 99 04/22/19 02:00 82 21 97/22 (47) 98 04/22/19 01:30 82 20 112/26 (54) 99 04/22/19 01:18 98 T-Piece 6.0 28 04/22/19 01:00 82 21 114/34 (60) 99 04/22/19 00:30 83 21 99/18 (45) 100 04/22/19 00:00 98.0 83 22 122/25 (57) 99 04/22/19 00:00 5.0 28 04/22/19 00:00 T-piece 5.0 T-piece 5.0 04/22/19 00:00 76 1/21/20 23:00 83 22 125/32 (63) 100 04/21/19 22:54 85 23 100 T-Piece 6.0 28 83 22 100 04/21/19 22:30 83 23 100/43 (62) 98 04/21/19 22:00 79 21 101/17 (45) 100 04/21/19 21:00 85 22 121/21 (54) 100 04/21/19 20:00 5.0 28 04/21/19 20:00 86 04/21/19 20:00 98.5 90 21 121/59 (79) 97 04/21/19 20:00 T-piece 5.0 T-piece 5.0 04/21/19 19:03 99 T-Piece 6.0 28 04/21/19 19:03 90 25 100 T-Piece 6.0 28 82 25 99 04/21/19 19:00 87 23 110/21 (50) 98 04/21/19 18:00 89 24 117/68 (84) 100 04/21/19 17:00 95 24 134/42 (72) 100 04/21/19 16:00 T-piece 5.0 T-piece 5.0 04/21/19 16:00 5.0 28 04/21/19 16:00 99.7 91 26 119/24 (55) 100 04/21/19 15:49 93 04/21/19 15:04 93 25 113/28 (56) 100 04/21/19 15:00 91 24 113/28 (56) 100 04/21/19 14:36 94 25 100 T-Piece 6.0 28 93 24 100 04/21/19 14:00 88 23 111/23 (52) 97 04/21/19 13:07 99 T-Piece 6.0 28 04/21/19 13:00 90 23 122/31 (61) 97 04/21/19 12:00 5.0 28 04/21/19 12:00 T-piece 5.0 T-piece 5.0 04/21/19 12:00 99.0 92 27 113/26 (55) 98 04/21/19 11:32 89 04/21/19 11:00 82 23 132/33 (66) 100 04/21/19 10:53 85 20 99 T-Piece 6.0 28 85 24 96 04/21/19 10:00 86 26 125/26 (59) 98 Intake and Output 04/21/19 04/22/19 19:00 07:00 Intake Total 1320 ml 1320 ml Output Total 630 ml 60 ml Balance 690 ml 1260 ml Free Water 500 ml 300 ml Tube Feeding 720 ml 720 ml Other 100 ml 300 ml Output Urine Total 350 ml Other 280 ml 60 ml # Voids 1 # Bowel Movements 1 2 Height (Feet): 5 Height (Inches): 3.00 Weight (Pounds): 124 General Appearance: no apparent distress EENT: other - O2 to trach Cardiovascular: normal rate Respiratory/Chest: decreased breath sounds Abdomen: soft Objective no change Eric Cortez MD Apr 22, 2019 09:58
--- NOTE | 2019-04-22 11:00 | NUR ---
NURSE NOTES: PT had 1 large soft pasty baxter colored BM; morning care, complete bed bath given, fatou care given, wound care done with Wound care nurse; suctioning given due to gurgling, will continue to monitor PT.
--- NOTE | 2019-04-22 15:08 | NUR ---
NURSE NOTES:WOUND CARE FOLLOW -UP NOTES:Wound in web of L index and L thumb resolving. Base of wound is moist and granular with surrounding pink epithelial (L)1cm x (W)1.1cm.No odor or exudate noted . Wounds Sacrum,R and L ischail regions resolved. Skin Hyperpigmentation with scarring noted to Sacrum,R and L ischium. BIlat foot drop noted . Both heels are soft but blanchable. NO new skin concerns noted. Wound Tx is effective and continued as ordered. All wound prevention protocols continued as ordered.
--- NOTE | 2019-04-22 15:53 | NUR ---
NURSE NOTES: PT VS stable, no S/S of respiratory distress, will continue to monitor.
[2019-04-22] MEDS ORDERED: D5W 275ml ONE (16:11)
[2019-04-22] MEDS ORDERED: Sterile Water Irrig 1000ml IRRIG ONE (16:11)
[2019-04-22] MEDS ORDERED: NS 275ml ONE (16:11)
--- NOTE | 2019-04-22 16:47 | Surgery Progress Note ---
Surgery Progress Note Subjective Symptoms: voiding well, pain decreased Objective Last 24 Hour Vital Signs Date Time Temp Pulse Resp B/P (MAP) Pulse Ox O2 Delivery O2 Flow Rate FiO2 04/22/19 16:00 T-piece 5.0 T-piece 5.0 04/22/19 16:00 89 04/22/19 16:00 5.0 28 04/22/19 16:00 98.2 88 22 118/27 (57) 100 04/22/19 15:30 81 22 100 T-Piece 6.0 28 85 24 99 04/22/19 15:00 87 21 117/31 (59) 100 04/22/19 14:00 88 24 125/44 (71) 100 04/22/19 13:22 99 T-Piece 6.0 28 04/22/19 13:00 84 20 124/32 (62) 100 04/22/19 12:00 T-piece 5.0 T-piece 5.0 04/22/19 12:00 98.4 81 24 134/36 (68) 100 04/22/19 12:00 5.0 28 04/22/19 12:00 76 04/22/19 11:57 82 20 100 T-Piece 6.0 28 85 20 100 04/22/19 11:00 91 27 114/52 (72) 95 04/22/19 10:00 90 25 124/29 (60) 98 04/22/19 09:00 84 20 105/40 (61) 99 04/22/19 08:00 5.0 28 04/22/19 08:00 T-piece 5.0 T-piece 5.0 04/22/19 08:00 81 04/22/19 08:00 98.6 84 22 121/29 (59) 100 04/22/19 07:38 100 T-Piece 6.0 28 04/22/19 07:38 89 22 100 T-Piece 6.0 28 82 22 100 04/22/19 07:00 82 21 127/27 (60) 100 04/22/19 06:00 80 20 104/43 (63) 100 04/22/19 05:00 83 22 124/36 (65) 100 04/22/19 04:00 5.0 28 04/22/19 04:00 80 04/22/19 04:00 98.2 84 18 137/41 (73) 100 1/22/20 04:00 T-piece 5.0 T-piece 5.0 04/22/19 03:07 83 25 100 T-Piece 6.0 28 87 20 100 04/22/19 03:00 75 23 95/19 (44) 99 04/22/19 02:00 82 21 97/22 (47) 98 04/22/19 01:30 82 20 112/26 (54) 99 04/22/19 01:18 98 T-Piece 6.0 28 04/22/19 01:00 82 21 114/34 (60) 99 04/22/19 00:30 83 21 99/18 (45) 100 04/22/19 00:00 98.0 83 22 122/25 (57) 99 04/22/19 00:00 5.0 28 04/22/19 00:00 T-piece 5.0 T-piece 5.0 04/22/19 00:00 76 04/21/19 23:00 83 22 125/32 (63) 100 04/21/19 22:54 85 23 100 T-Piece 6.0 28 83 22 100 04/21/19 22:30 83 23 100/43 (62) 98 04/21/19 22:00 79 21 101/17 (45) 100 04/21/19 21:00 85 22 121/21 (54) 100 04/21/19 20:00 5.0 28 04/21/19 20:00 86 04/21/19 20:00 98.5 90 21 121/59 (79) 97 04/21/19 20:00 T-piece 5.0 T-piece 5.0 04/21/19 19:03 99 T-Piece 6.0 28 04/21/19 19:03 90 25 100 T-Piece 6.0 28 82 25 99 04/21/19 19:00 87 23 110/21 (50) 98 04/21/19 18:00 89 24 117/68 (84) 100 04/21/19 17:00 95 24 134/42 (72) 100 I&O Intake and Output 04/21/19 04/22/19 19:00 07:00 Intake Total 1320 ml 1320 ml Output Total 630 ml 60 ml Balance 690 ml 1260 ml Free Water 500 ml 300 ml Tube Feeding 720 ml 720 ml Other 100 ml 300 ml Output Urine Total 350 ml Other 280 ml 60 ml # Voids 1 # Bowel Movements 1 2 Dressing: dry Wound: clean Cardiovascular: RSR Respiratory: clear, decreased breath sounds Abdomen: soft, non-tender, present bowel sounds Extremities: no cyanosis Plan Problems: (1) Sacral decubitus ulcer Assessment & Plan: This is a 83-year-old female with multiple medical committees that is currently admitted for medical care and management and identified to have multiple wounds requiring care. On admission patient noted to have a resolved sacral decubitus ulcer. Has had prior care and is well-healed at this time. Will ensure it does not open up again. Patient has a right ischial decubitus ulcer that is resolved. Scar intact and well formed. Will monitor to ensure it does not open up again. Patient has a left ischial decubitus ulcer that can be identified to be stage IV with palpable bone that has been resolving as noted by the periwound tissue and scar but open area approximately 1 cm x 1.5 cm few millimeters deep to bone identified. Unsure if this is been to be completely healed prior and has since opened or if has been healing at this level. No foul odor no drainage was unsure local wound care until healed Bilateral heels soft without signs of injury Resolving pressure injury L ischium(L)1.8cm x (W)1cm.Scattered biofilm at base of wound. Edges flat and adherent with surrounding hyperpigmentation. No odor or exudate noted. Sacrum is pale pink with surrounding hyperpigmentation. Hyperpigmentation R ischium with small sheared area centrally.No areas of erythema or exudate noted. Both heels are soft but blanchable. Skin Assessed under collar of trach and no evidence of skin breakdown noted. All wound Tx. are effective and continued as ordered. Pt ahs an APM/Belén mattress overlay and is being repositioned per protocols and per tolerance.No new skin concerns noted. Full thickness pressure injury L Ischium with small amt biofilm (L)1.8cm x (W) 1cm. Surrounding pink hyperpigmentation. No odor or exudate noted. [place] hyperpigmentation from previous wound noted to sacrum. Pt also noted to have Cat 2 Skin Tear dorsal L hand, L 5th metatarsal extending into palm of hand. 80% skin flap in situ.Both heels are dry firm and blanchable. No other skin concerns noted. R ischial wound has resolved. [place] epithelial with surrounding hyperpigmentation. from historical wound. Full thickness pressure injury L ischium. [place] granulation at base of wound. Borders are macerated with Surrounding hyperpigmentation.Small amt non-odorous serous exudate noted.(L)0.7cm x (W)0.8cm. Skin hyperpigmentation from historical wound noted to Sacrum. Small sheared area noted to sacrococcygeal area.(L)0.4cm x (W)0.3cm.Small amt sanguineous exudate noted. Reabsorbed blister with semi-detached dry necrotic cap noted to web space of L thumb and L index fingers extending into palm of L hand. No odor or exudate noted. Skin assessed under tracheal collar and no erythema or evidence of Skin Breakdown noted. NO new skin concerns noted . Good hand hygiene provided to both hands. R hand contracted and fisted. Fingernails trimmed. Wound care provided along with Primary nurse. Wound Tx continued as ordered. New order obtained from to apply Betadine to wound L hand Daily. Tx done as ordered. L hand wrapped with kerlix weaving kerlix between fingers to separate fingers. Moisture Barrier applied to sacrum ,R ischium. Each site covered with Optifoam drsg. Both lower ext washed and moisturized. [place] Skin Barrier applied to both heels.Each heel covered with Optifoam drsgs. Pt positioned with pillows and both heels off-loaded with pillow. Pt wounds are resolving. Loose necrotic cap within web space of L index finger and L thumb easily removed with gentle friction. Base of wound is hypergranular with 10% necrosis. Borders are macerated. Application of Silver Nitrate to hypergranular base done. [place] Skin Barrier applied to borders . Good hand hygiene provided. Wound covered with Abd pad. L hand wrapped with Kerlix weaving Kerlix between digitsof L hand. Pressure injury L ischium resolving. Base iof wound is pale pink and dry with surrounding hyperpigmentation and scar from previous wound. Hyperpigmentation with historical scars noted to Sacrum and R ischium. Both heels are soft and blanchable. Skin Assessed under trach collar and no evidence of skin breakdown noted. Tx.Plan: Apply Betadine to wound L hand. Cover with Gauze and wrap with Kerlix Daily and prn. Cleanse L ischial wound with Saline. Apply Therahoney. Apply Moisture Barrier periwound. Cover with Optifoam drsgevery 3 days and prn. Apply Moisture Barrier Paste to R ischium and Sacrum. Cover each area with Optifoam drsg. Change every 3 days and prn. Apply Cavilon Skin Barrier to both heels. Cover each heel with Optifoam drsg. Change every 7 days and prn. Cleanse Blister Dorsal and palm of L hand with saline. Versatel One Silicone Contact Layer(Applied). Apply Silvasorb Gel. Wrap with Kerlix Gauze.Change every 7 days and prn. Apply Moisture Barrier to sacrum. Cover with Optifoam drsg. Change every 3 days and prn. APM/BELÉN Mattress overlay. Reposition at least every 2hours or as tolerated. Off-load heels with pillow. Nutritional optimization We will monitor follow with recommendations cont with above upon d/c wounds healing overall improving (2) Sepsis Assessment & Plan: IV abx as per ID trend labs improving wounds unlikely etiology likely respiratory imaging noted and okay abnormal lft's stable PICC on Abx in ICU for desaturation CXR with consolidation cont with frequent suctioning d/c planning g j via GI daughter wants close attention to wounds and management to ensure healing Evidence of left lower lobe pneumonia, also previously demonstrated Gastrostomy in good position Mild diastasis of the rectus abdominis musculature again demonstrated Retrosacral decubitus changes, better depicted on prior exam which included the pelvis Small hiatal hernia with evidence of trace gastroesophageal reflux Discussed with GI. Recommend GJ family still pending decision transfuse prbc prn monitor h/h monitor bm LFTs improving trending down (3) Feeding by G-tube Assessment & Plan: DAILY ESTIMATED NEEDS: Needs based on Pulmonary, wounds, bedbound/ 61kg adj 25-30 kcals/kg 5720-4436 total kcals 1.25-2 g protein/kg 76-122 g total protein 25-30 mL/kg 5001-4423 total fluid mLs NUTRITION DIAGNOSIS: * Increased kcal/prot needs R/T wound healing as evidenced by BL buttocks and sacral wound photos, refer to eval. * Swallowing difficulty R/T respiratory status as evidenced by pt on T-collar, s/p G-J conversion CURRENT TF:Glucerna 1.5 @ 50ml/hr x 24 hrs ENTERAL NUTRITION RECOMMENDATIONS: Glucerna 1.5 @ 50ml/hr x 24 hrs to provide 1200ml, 1800 kcal, 99g pro, 911ml free H2O - Maintain at current rate as tolerated to meet 100% est needs - HOB over 30 degrees - INCREASE water flush of 170ml q 6 hrs ADDITIONAL RECOMMENDATIONS: 1) RE-calibrate bedscale wt: fluctuating daily wts (108#-136# last 6 days) 2) Wound healing: Add Cristian 1pkt BID w/ continued good TF tolerance. 3) Increase water flushes, monitor for signs of water deficits 4) Monitor BGs closely, need for NISS -> now w/ improved BGs 5) Monitor for continued good TF tolerance 6) Monitor K : elev K on 03/25, s/p Kdur BID, now dc'ed. (4) Chronic vegetative state Assessment & Plan: incontinence of urine and stool. can soil dressings. nurses doing great job with monitoring and changing prn (5) Leukocytosis Walter Madera Apr 22, 2019 16:47
--- NOTE | 2019-04-22 18:04 | Pulmonolgy Critical Care Note ---
Critical Care - Asmt/Plan Assessment/Plan: Pulmonary CCM Progress Note Assessment/Plan Impression: history of Sepsis history of Pneumonia Trach, G tube, Hypertension, Cardiac disease, Dementia, Previous CVA, Seizure disorder, Respiratory failure with hypoxia Anemia, Sacral ulcer renal cyst chronic pulmonary congestion Plan continue to monitor off vent and monitor as is oxygen low flow aspiration precautions to continue elevate head and monitor secretions DNR. No CPR. ICU care reviewed meds noted off load all changes noted and discussed hope to transfer to [place] if family agrees medications/laboratory data/nursing notes/ICU care reviewed in detail note reviewed and edited care discussed with RN and RT Subjective Allergies: Coded Allergies: CODEINE Subjective respiratory care noted ICU care reviewed supportive care noted and reviewed RT care reviewed overnight care noted findings reviewed and discussed in detail with nursing and RT Objective Vital Signs Noted Objective WDWN NAD contracted off vent reduced breath sounds bilaterally with some rhonchi; no wheeze [id number] without MRG NABS nontender no HSM no CC minimal nonfocal nonverbal trach and gt reviewed and edited Laboratory Tests Noted Critical Care - Objective Last 24 Hour Vital Signs Date Time Temp Pulse Resp B/P (MAP) Pulse Ox O2 Delivery O2 Flow Rate FiO2 04/22/19 17:00 88 22 117/20 (52) 100 04/22/19 16:00 T-piece 5.0 T-piece 5.0 04/22/19 16:00 89 04/22/19 16:00 5.0 28 04/22/19 16:00 98.2 88 22 118/27 (57) 100 04/22/19 15:30 81 22 100 T-Piece 6.0 28 85 24 99 04/22/19 15:00 87 21 117/31 (59) 100 04/22/19 14:00 88 24 125/44 (71) 100 04/22/19 13:22 99 T-Piece 6.0 28 04/22/19 13:00 84 20 124/32 (62) 100 04/22/19 12:00 T-piece 5.0 T-piece 5.0 04/22/19 12:00 98.4 81 24 134/36 (68) 100 04/22/19 12:00 5.0 28 04/22/19 12:00 76 04/22/19 11:57 82 20 100 T-Piece 6.0 28 85 20 100 04/22/19 11:00 91 27 114/52 (72) 95 04/22/19 10:00 90 25 124/29 (60) 98 04/22/19 09:00 84 20 105/40 (61) 99 04/22/19 08:00 5.0 28 04/22/19 08:00 T-piece 5.0 T-piece 5.0 04/22/19 08:00 81 04/22/19 08:00 98.6 84 22 121/29 (59) 100 04/22/19 07:38 100 T-Piece 6.0 28 04/22/19 07:38 89 22 100 T-Piece 6.0 28 82 22 100 04/22/19 07:00 82 21 127/27 (60) 100 04/22/19 06:00 80 20 104/43 (63) 100 04/22/19 05:00 83 22 124/36 (65) 100 04/22/19 04:00 5.0 28 04/22/19 04:00 80 04/22/19 04:00 98.2 84 18 137/41 (73) 100 04/22/19 04:00 T-piece 5.0 T-piece 5.0 04/22/19 03:07 83 25 100 T-Piece 6.0 28 87 20 100 04/22/19 03:00 75 23 95/19 (44) 99 04/22/19 02:00 82 21 97/22 (47) 98 04/22/19 01:30 82 20 112/26 (54) 99 04/22/19 01:18 98 T-Piece 6.0 28 04/22/19 01:00 82 21 114/34 (60) 99 04/22/19 00:30 83 21 99/18 (45) 100 04/22/19 00:00 98.0 83 22 122/25 (57) 99 04/22/19 00:00 5.0 28 04/22/19 00:00 T-piece 5.0 T-piece 5.0 04/22/19 00:00 76 04/21/19 23:00 83 22 125/32 (63) 100 04/21/19 22:54 85 23 100 T-Piece 6.0 28 83 22 100 04/21/19 22:30 83 23 100/43 (62) 98 04/21/19 22:00 79 21 101/17 (45) 100 04/21/19 21:00 85 22 121/21 (54) 100 04/21/19 20:00 5.0 28 04/21/19 20:00 86 04/21/19 20:00 98.5 90 21 121/59 (79) 97 04/21/19 20:00 T-piece 5.0 T-piece 5.0 04/21/19 19:03 99 T-Piece 6.0 28 04/21/19 19:03 90 25 100 T-Piece 6.0 28 82 25 99 04/21/19 19:00 87 23 110/21 (50) 98 Accucheck: 88 Critical Care - Subjective ROS Limited/Unobtainable: No FI02: 28 Vent Support Mode: CPAP Vent Tidal Volume: 450 Sputum Amount: Small PEEP: 5.0 PIP: 19 Tube Feeding Amount: 60 I&O: Intake and Output 04/21/19 04/22/19 19:00 07:00 Intake Total 1320 ml 1320 ml Output Total 630 ml 60 ml Balance 690 ml 1260 ml Free Water 500 ml 300 ml Tube Feeding 720 ml 720 ml Other 100 ml 300 ml Output Urine Total 350 ml Other 280 ml 60 ml # Voids 1 # Bowel Movements 1 2 ET-Tube: 6.0 Bg Moffett MD Apr 22, 2019 18:04
--- NOTE | 2019-04-22 19:16 | NUR ---
HAND-OFF: Report and PT given to JEANNINE Ford.
--- NOTE | 2019-04-22 19:46 | NUR ---
NURSE NOTES: pt pt asleep does not follows command upper extremities contracted and lower extremities stiff [id number] at 28 o/o o2 sat 99 0/0 no acute resp distress noted tolerating tube feeding no residual suction and reposition
[2019-04-22] MEDS: Dyna-Hex 2% Top Sol 2oz TOPIC SCH (20:29)
--- NOTE | 2019-04-22 20:52 | General Progress Note ---
Assessment/Plan Status: stable, progressing Assessment/Plan: Assessment - N/V - resolved with G --> J conversion - constipation - partly due to low residue formula used, good response to sorbitol - Elevated Alk phos / LFT - CT negative - abd U/S negative - check hepatitis serologies - negative - possibly MURRAY / Fatty liver - will periodically monitor - Anemia with OB (-) stools - Resp failure, s/p Trach - dysphagia, s/p PEG --> GJ tube - OBS, vegetative obtunded unresponsive state, bedbound with contracted extremities, - h/o minor GJ tube site irritation - elevated BUN/Cr - poor Prognosis Recommendations - daily sorbitol, and PRN sorbitol - Follow BUN/Cr - Cristian BID - antibiotic ointment to GJT site PRN - aspiration precautions - elevate HOB - Vital AF 1.2 - check q 6 hour FS - transfuse to keep Hg > 7 - J tube feeds - G tube drain Subjective Allergies: Coded Allergies: CODEINE (Verified Allergy, Unknown, HIVES, 09/15/09) Subjective above noted tolerating TF via J port d/w RN (+) BM Objective Last 24 Hour Vital Signs Date Time Temp Pulse Resp B/P (MAP) Pulse Ox O2 Delivery O2 Flow Rate FiO2 04/22/19 19:13 85 22 100 T-Piece 6.0 28 85 23 99 04/22/19 19:13 99 T-Piece 6.0 28 04/22/19 18:00 86 22 126/30 (62) 100 04/22/19 17:00 88 22 117/20 (52) 100 04/22/19 16:00 T-piece 5.0 T-piece 5.0 04/22/19 16:00 89 04/22/19 16:00 5.0 28 04/22/19 16:00 98.2 88 22 118/27 (57) 100 04/22/19 15:30 81 22 100 T-Piece 6.0 28 85 24 99 04/22/19 15:00 87 21 117/31 (59) 100 04/22/19 14:00 88 24 125/44 (71) 100 04/22/19 13:22 99 T-Piece 6.0 28 04/22/19 13:00 84 20 124/32 (62) 100 04/22/19 12:00 T-piece 5.0 T-piece 5.0 04/22/19 12:00 98.4 81 24 134/36 (68) 100 04/22/19 12:00 5.0 28 04/22/19 12:00 76 04/22/19 11:57 82 20 100 T-Piece 6.0 28 85 20 100 04/22/19 11:00 91 27 114/52 (72) 95 04/22/19 10:00 90 25 124/29 (60) 98 04/22/19 09:00 84 20 105/40 (61) 99 04/22/19 08:00 5.0 28 04/22/19 08:00 T-piece 5.0 T-piece 5.0 04/22/19 08:00 81 04/22/19 08:00 98.6 84 22 121/29 (59) 100 04/22/19 07:38 100 T-Piece 6.0 28 04/22/19 07:38 89 22 100 T-Piece 6.0 28 82 22 100 04/22/19 07:00 82 21 127/27 (60) 100 04/22/19 06:00 80 20 104/43 (63) 100 04/22/19 05:00 83 22 124/36 (65) 100 04/22/19 04:00 5.0 28 04/22/19 04:00 80 04/22/19 04:00 98.2 84 18 137/41 (73) 100 04/22/19 04:00 T-piece 5.0 T-piece 5.0 04/22/19 03:07 83 25 100 T-Piece 6.0 28 87 20 100 04/22/19 03:00 75 23 95/19 (44) 99 04/22/19 02:00 82 21 97/22 (47) 98 04/22/19 01:30 82 20 112/26 (54) 99 04/22/19 01:18 98 T-Piece 6.0 28 04/22/19 01:00 82 21 114/34 (60) 99 04/22/19 00:30 83 21 99/18 (45) 100 04/22/19 00:00 98.0 83 22 122/25 (57) 99 04/22/19 00:00 5.0 28 04/22/19 00:00 T-piece 5.0 T-piece 5.0 04/22/19 00:00 76 04/21/19 23:00 83 22 125/32 (63) 100 04/21/19 22:54 85 23 100 T-Piece 6.0 28 83 22 100 04/21/19 22:30 83 23 100/43 (62) 98 04/21/19 22:00 79 21 101/17 (45) 100 04/21/19 21:00 85 22 121/21 (54) 100 Intake and Output 04/21/19 04/22/19 19:00 07:00 Intake Total 1320 ml 1320 ml Output Total 630 ml 60 ml Balance 690 ml 1260 ml Free Water 500 ml 300 ml Tube Feeding 720 ml 720 ml Other 100 ml 300 ml Output Urine Total 350 ml Other 280 ml 60 ml # Voids 1 # Bowel Movements 1 2 Height (Feet): 5 Height (Inches): 3.00 Weight (Pounds): 124 Objective Debilitated AA woman non-verbal, obtunded NCAT (+) trach coarse BS RR obese abd, (+) GJT no edema (+) contractured extremities Celio Vaughan MD Apr 22, 2019 20:52
--- NOTE | 2019-04-22 22:00 | NUR ---
NURSE NOTES: reposition and suction family at bedside visiting
[2019-04-23] VITALS (24 sets, daily range): BP systolic 93–146; BP diastolic 19–44
--- NOTE | 2019-04-23 | NUR ---
NURSE NOTES: reposition and suction tolerating tube feeding no residual
--- NOTE | 2019-04-23 02:00 | NUR ---
NURSE NOTES: complete bed bath oral care and back care done reposition and suction done
[2019-04-23] MEDS: Albuterol/Ipratropium 3ml neb HHN SCH ×5 (03:02→23:52)
--- NOTE | 2019-04-23 04:43 | NUR ---
NURSE NOTES: asleep reposition and suction done
--- NOTE | 2019-04-23 06:00 | NUR ---
NURSE NOTES: asleep no acute resp distress tolerating tube feeding reposition and suction
--- NOTE | 2019-04-23 07:17 | NUR ---
NURSE NOTES: Received report from JEANNINE Armstrong. Pt is observed laying in bed, obtunded, non verbal, opening eyes spontaneously. On T-piece FiO2 28% O2 5L and SaO2 100% noted. J-tube feeding running vital AF @ 60mL/hr and tolerating well, no residual noted. G-tube draining to gravity. Purewick in place. Dressing is clean and dry on Lt. hand. Pt has Rt. upper arm PICC line intact and patent, dressing clean dry and intact. On P-200 mattress for wound management. No signs of pain and/or distress. Pt maintained on fall and seizure precautions. Bed locked and in lowest position with call light within reach. Will continue to care plan.
--- NOTE | 2019-04-23 07:21 | Progress Note ---
DATE: 04/22/2019 CARDIOLOGY PROGRESS NOTE No new distress. Vitals are stable. Monitored sinus. Exam without change. ICU log is reviewed. No new laboratory studies today. We will continue current cardiovascular management and observe closely for any change and adjust therapy accordingly. Bg Hagen M.D. DR: CHARLEE JOB#: [id number] CC:
--- NOTE | 2019-04-23 07:28 | NUR ---
HAND-OFF: Report given to scott mann using sbar.
--- NOTE | 2019-04-23 07:34 | General Progress Note ---
Assessment/Plan Problem List: (1) Seizure ICD Codes: R56.9 - Unspecified convulsions SNOMED: 74277579 (2) Anemia ICD Codes: D64.9 - Anemia, unspecified SNOMED: 471265977 Qualifiers: Qualified Codes: D64.9 - Anemia, unspecified (3) Sepsis ICD Codes: A41.9 - Sepsis, unspecified organism SNOMED: 02938213, 102995212 Qualifiers: Qualified Codes: A41.9 - Sepsis, unspecified organism (4) Respiratory failure with hypoxia ICD Codes: J96.91 - Respiratory failure, unspecified with hypoxia SNOMED: 94756525621892804 Qualifiers: Qualified Codes: J96.21 - Acute and chronic respiratory failure with hypoxia (5) HCAP (healthcare-associated pneumonia) ICD Codes: J18.9 - Pneumonia, unspecified organism SNOMED: 498992592, 086211609 (6) Sacral decubitus ulcer ICD Codes: L89.159 - Pressure ulcer of sacral region, unspecified stage SNOMED: 432914821 (7) HTN (hypertension) ICD Codes: I10 - Essential (primary) hypertension SNOMED: 79800037 (8) Chronic vegetative state ICD Codes: R40.3 - Persistent vegetative state SNOMED: 83891673 (9) Chronic respiratory failure ICD Codes: J96.10 - Chronic respiratory failure, unspecified whether with hypoxia or hypercapnia SNOMED: 24570208 (10) Limited mobility ICD Codes: Z74.09 - Other reduced mobility SNOMED: 7108642 Status: stable, progressing Assessment/Plan: vent as needed resp rx suctioning j tube feeds g port to gravity skin care sz rx check labs/monitor Na level bowel regime dc planning Subjective ROS Limited/Unobtainable: Yes Constitutional: Reports: malaise, weakness HEENT: Reports: no symptoms Cardiovascular: Reports: no symptoms Respiratory: Reports: cough, shortness of breath, sputum Gastrointestinal/Abdominal: Reports: difficulty swallowing Genitourinary: Reports: no symptoms Neurologic/Psychiatric: Reports: pre-existing deficit, seizure Endocrine: Reports: no symptoms Hematologic/Lymphatic: Reports: no symptoms Allergies: Coded Allergies: CODEINE (Verified Allergy, Unknown, HIVES, 09/15/09) All Systems: reviewed and negative except above Subjective no events. no reports of bleeding. tolerating feeds, no vomiting. minimal secretions. no szs Objective Last 24 Hour Vital Signs Date Time Temp Pulse Resp B/P (MAP) Pulse Ox O2 Delivery O2 Flow Rate FiO2 04/23/19 07:29 100 T-Piece 6.0 28 04/23/19 07:29 83 20 100 T-Piece 6.0 28 84 22 100 04/23/19 07:00 84 21 115/21 (52) 100 04/23/19 06:00 90 24 113/19 (50) 100 04/23/19 05:00 85 24 123/33 (63) 100 04/23/19 04:00 97.8 85 21 125/27 (59) 100 04/23/19 04:00 84 04/23/19 04:00 T-piece 5.0 T-piece 5.0 04/23/19 04:00 5.0 28 04/23/19 03:04 81 22 100 T-Piece 6.0 28 80 21 100 04/23/19 03:00 85 25 142/37 (72) 100 04/23/19 02:00 82 23 110/41 (64) 98 04/23/19 01:09 99 T-Piece 6.0 28 04/23/19 01:00 80 21 104/22 (49) 100 04/23/19 00:00 97.5 84 22 106/19 (48) 97 04/23/19 00:00 5.0 28 04/23/19 00:00 T-piece 5.0 T-piece 5.0 04/23/19 00:00 82 04/22/19 23:00 80 21 98/44 (62) 100 04/22/19 22:53 83 22 100 T-Piece 6.0 28 81 23 100 04/22/19 22:00 86 21 161/44 (83) 100 04/22/19 21:00 87 24 120/39 (66) 97 04/22/19 20:00 5.0 28 04/22/19 20:00 T-piece 5.0 T-piece 5.0 04/22/19 20:00 85 23 124/25 (58) 99 04/22/19 20:00 86 04/22/19 19:13 85 22 100 T-Piece 6.0 28 85 23 99 04/22/19 19:13 99 T-Piece 6.0 28 04/22/19 19:00 86 21 119/26 (57) 98 04/22/19 18:00 86 22 126/30 (62) 100 04/22/19 17:00 88 22 117/20 (52) 100 04/22/19 16:00 T-piece 5.0 T-piece 5.0 04/22/19 16:00 89 04/22/19 16:00 5.0 28 04/22/19 16:00 98.2 88 22 118/27 (57) 100 04/22/19 15:30 81 22 100 T-Piece 6.0 28 85 24 99 04/22/19 15:00 87 21 117/31 (59) 100 04/22/19 14:00 88 24 125/44 (71) 100 04/22/19 13:22 99 T-Piece 6.0 28 04/22/19 13:00 84 20 124/32 (62) 100 04/22/19 12:00 T-piece 5.0 T-piece 5.0 04/22/19 12:00 98.4 81 24 134/36 (68) 100 04/22/19 12:00 5.0 28 04/22/19 12:00 76 04/22/19 11:57 82 20 100 T-Piece 6.0 28 85 20 100 04/22/19 11:00 91 27 114/52 (72) 95 04/22/19 10:00 90 25 124/29 (60) 98 04/22/19 09:00 84 20 105/40 (61) 99 04/22/19 08:00 5.0 28 04/22/19 08:00 T-piece 5.0 T-piece 5.0 04/22/19 08:00 81 04/22/19 08:00 98.6 84 22 121/29 (59) 100 04/22/19 07:38 100 T-Piece 6.0 28 04/22/19 07:38 89 22 100 T-Piece 6.0 28 82 22 100 Intake and Output 04/22/19 04/23/19 19:00 07:00 Intake Total 1320 ml 1320 ml Output Total 1250 ml 1450 ml Balance 70 ml -130 ml Free Water 300 ml 300 ml Tube Feeding 720 ml 720 ml Other 300 ml 300 ml Output Urine Total 450 ml 1100 ml Gastric Drainage Total 350 ml Other 800 ml # Bowel Movements 1 Height (Feet): 5 Height (Inches): 3.00 Weight (Pounds): 123 Objective General Appearance: WD/WN, confused. on trach collar Neck: supple Cardiovascular: normal rate, regular rhythm Respiratory/Chest: chest wall non-tender, rhonchi - bilaterally(minimal) Abdomen: normal bowel sounds, non tender, soft, no organomegaly Edema: no edema noted Arm (L), no edema noted Arm (R), no edema noted Leg (L), no edema noted Leg (R), no edema noted Pedal (L), no edema noted Pedal (R), no edema noted Generalized Neurologic: disoriented, unresponsive, aphasia Irvin Beltrán MD Apr 23, 2019 07:34
--- NOTE | 2019-04-23 07:57 | Infectious Diseases Prog Note ---
Assessment/Plan Assessment/Plan A 1. Providencia & Klebsiella pneumonia treated 2. respiratory failure 3. hypertension 4. CVA 5. dementia 6. sacral decubitus ulcer 7. rectal VRE colonization 8. Anemia 9. Proteus UTI 10. Acute renal failure 11. Leukocytosis resolved P 1.Observe off antibiotic 2. Frequent suctioning 3. Remove PICC line before discharge Subjective ROS Limited/Unobtainable: Yes Constitutional: Denies: fever Allergies: Coded Allergies: CODEINE (Verified Allergy, Unknown, HIVES, 09/15/09) Objective Vital Signs Last 24 Hour Vital Signs Date Time Temp Pulse Resp B/P (MAP) Pulse Ox O2 Delivery O2 Flow Rate FiO2 04/23/19 07:29 100 T-Piece 6.0 28 04/23/19 07:29 83 20 100 T-Piece 6.0 28 84 22 100 04/23/19 07:00 84 21 115/21 (52) 100 04/23/19 06:00 90 24 113/19 (50) 100 04/23/19 05:00 85 24 123/33 (63) 100 04/23/19 04:00 97.8 85 21 125/27 (59) 100 04/23/19 04:00 84 04/23/19 04:00 T-piece 5.0 T-piece 5.0 04/23/19 04:00 5.0 28 04/23/19 03:04 81 22 100 T-Piece 6.0 28 80 21 100 04/23/19 03:00 85 25 142/37 (72) 100 04/23/19 02:00 82 23 110/41 (64) 98 04/23/19 01:09 99 T-Piece 6.0 28 04/23/19 01:00 80 21 104/22 (49) 100 04/23/19 00:00 97.5 84 22 106/19 (48) 97 04/23/19 00:00 5.0 28 04/23/19 00:00 T-piece 5.0 T-piece 5.0 04/23/19 00:00 82 04/22/19 23:00 80 21 98/44 (62) 100 04/22/19 22:53 83 22 100 T-Piece 6.0 28 81 23 100 04/22/19 22:00 86 21 161/44 (83) 100 04/22/19 21:00 87 24 120/39 (66) 97 04/22/19 20:00 5.0 28 04/22/19 20:00 T-piece 5.0 T-piece 5.0 04/22/19 20:00 85 23 124/25 (58) 99 04/22/19 20:00 86 04/22/19 19:13 85 22 100 T-Piece 6.0 28 85 23 99 04/22/19 19:13 99 T-Piece 6.0 28 04/22/19 19:00 86 21 119/26 (57) 98 04/22/19 18:00 86 22 126/30 (62) 100 04/22/19 17:00 88 22 117/20 (52) 100 04/22/19 16:00 T-piece 5.0 T-piece 5.0 04/22/19 16:00 89 04/22/19 16:00 5.0 28 04/22/19 16:00 98.2 88 22 118/27 (57) 100 04/22/19 15:30 81 22 100 T-Piece 6.0 28 85 24 99 04/22/19 15:00 87 21 117/31 (59) 100 04/22/19 14:00 88 24 125/44 (71) 100 04/22/19 13:22 99 T-Piece 6.0 28 04/22/19 13:00 84 20 124/32 (62) 100 04/22/19 12:00 T-piece 5.0 T-piece 5.0 04/22/19 12:00 98.4 81 24 134/36 (68) 100 04/22/19 12:00 5.0 28 04/22/19 12:00 76 04/22/19 11:57 82 20 100 T-Piece 6.0 28 85 20 100 04/22/19 11:00 91 27 114/52 (72) 95 04/22/19 10:00 90 25 124/29 (60) 98 04/22/19 09:00 84 20 105/40 (61) 99 04/22/19 08:00 5.0 28 04/22/19 08:00 T-piece 5.0 T-piece 5.0 04/22/19 08:00 81 04/22/19 08:00 98.6 84 22 121/29 (59) 100 Height (Feet): 5 Height (Inches): 3.00 Weight (Pounds): 123 General Appearance: no acute distress HEENT: status post trach Respiratory/Chest: other - on T bar, few ronchi Cardiovascular: normal rate, other - PICC line Abdomen: soft, non tender, other - GT feeding Extremities: no edema Skin: ulcers, other - left hand Neurologic/Psychiatric: aphasia Current Medications Medications (Trade) Dose Ordered Sig/Maicol Route PRN Reason Start Time Stop Time Status Last Admin Dose Admin Albuterol/ Ipratropium (Albuterol/ Ipratropium) 3 ml Q4HRT HHN 04/20/19 11:00 04/25/19 10:59 04/23/19 07:28 Atropine Sulfate (Atropine Opth Adriana) 1 drop THREE TIMES A DAY SL 04/08/19 09:00 05/07/19 20:59 04/22/19 18:07 Chlorhexidine Gluconate (Cesilia-Hex 2%) 1 applic DAILY@2000 TOPIC 04/12/19 20:00 05/12/19 19:59 04/22/19 20:29 Folic Acid (Folate) 1 mg DAILY GT 04/08/19 09:00 05/08/19 08:59 04/22/19 09:10 Heparin Sodium (Porcine) (Heparin 5000 units/ml) 5,000 units EVERY 12 HOURS SUBQ 04/01/19 10:00 05/01/19 09:59 04/22/19 20:32 Hydralazine HCl (Apresoline) 25 mg Q6H PRN ORAL SBP above 150 04/06/19 02:45 05/06/19 02:44 04/06/19 11:15 Lansoprazole (Prevacid) 30 mg Q12HR GT 03/29/19 09:00 04/24/19 20:59 04/22/19 20:30 Levetiracetam (Keppra) 750 mg Q12HR GT 04/07/19 21:00 05/07/19 20:59 04/22/19 20:29 Sorbitol (Sorbitol) 30 ml BIDPRN PRN ORAL Constipation 04/13/19 11:15 05/13/19 11:14 Sorbitol (sorbitoL) 30 ml DAILY GT 04/14/19 09:00 05/14/19 08:59 04/22/19 09:10 Chauncey Liriano MD Apr 23, 2019 07:56
[2019-04-23] MEDS: Sorbitol Solution UD 30ml GT SCH (08:18)
[2019-04-23] MEDS: Heparin 5000 units/ml inj SUBQ SCH ×2 (08:21→20:50)
--- NOTE | 2019-04-23 09:45 | Nephrology Progress Note ---
Assessment/Plan Problem List: (1) Acute renal failure (ARF) Assessment: Cr stable (2) Chronic respiratory failure (3) Anemia (4) Sepsis Assessment Acute renal failure Respiratory failure - Trach Low Mag- Low k , Low Na Anemia UTI / Sepsis Proteinuria / HypoAlbuminemia high Trigs Sz decubs bed bound DNR Plan Transfused previously now has JT bolus Albumin as needed K and Mag and Phos supplement as needed Hydrate as needed Urine studies avoid Nephrotoxics mag K Phos supplements as needed monitor renal parameters Subjective ROS Limited/Unobtainable: Yes Objective Objective Last 24 Hour Vital Signs Date Time Temp Pulse Resp B/P (MAP) Pulse Ox O2 Delivery O2 Flow Rate FiO2 04/23/19 08:00 98.9 84 20 103/22 (49) 100 04/23/19 08:00 5.0 28 04/23/19 08:00 T-piece 5.0 T-piece 5.0 04/23/19 07:29 100 T-Piece 6.0 28 04/23/19 07:29 83 20 100 T-Piece 6.0 28 84 22 100 04/23/19 07:00 84 21 115/21 (52) 100 04/23/19 06:00 90 24 113/19 (50) 100 04/23/19 05:00 85 24 123/33 (63) 100 04/23/19 04:00 97.8 85 21 125/27 (59) 100 04/23/19 04:00 84 04/23/19 04:00 T-piece 5.0 T-piece 5.0 04/23/19 04:00 5.0 28 04/23/19 03:04 81 22 100 T-Piece 6.0 28 80 21 100 04/23/19 03:00 85 25 142/37 (72) 100 04/23/19 02:00 82 23 110/41 (64) 98 04/23/19 01:09 99 T-Piece 6.0 28 04/23/19 01:00 80 21 104/22 (49) 100 04/23/19 00:00 97.5 84 22 106/19 (48) 97 04/23/19 00:00 5.0 28 04/23/19 00:00 T-piece 5.0 T-piece 5.0 04/23/19 00:00 82 04/22/19 23:00 80 21 98/44 (62) 100 04/22/19 22:53 83 22 100 T-Piece 6.0 28 81 23 100 04/22/19 22:00 86 21 161/44 (83) 100 04/22/19 21:00 87 24 120/39 (66) 97 04/22/19 20:00 5.0 28 04/22/19 20:00 T-piece 5.0 T-piece 5.0 04/22/19 20:00 85 23 124/25 (58) 99 04/22/19 20:00 86 04/22/19 19:13 85 22 100 T-Piece 6.0 28 85 23 99 04/22/19 19:13 99 T-Piece 6.0 28 04/22/19 19:00 86 21 119/26 (57) 98 04/22/19 18:00 86 22 126/30 (62) 100 04/22/19 17:00 88 22 117/20 (52) 100 04/22/19 16:00 T-piece 5.0 T-piece 5.0 04/22/19 16:00 89 04/22/19 16:00 5.0 28 04/22/19 16:00 98.2 88 22 118/27 (57) 100 04/22/19 15:30 81 22 100 T-Piece 6.0 28 85 24 99 04/22/19 15:00 87 21 117/31 (59) 100 04/22/19 14:00 88 24 125/44 (71) 100 04/22/19 13:22 99 T-Piece 6.0 28 04/22/19 13:00 84 20 124/32 (62) 100 04/22/19 12:00 T-piece 5.0 T-piece 5.0 04/22/19 12:00 98.4 81 24 134/36 (68) 100 04/22/19 12:00 5.0 28 04/22/19 12:00 76 04/22/19 11:57 82 20 100 T-Piece 6.0 28 85 20 100 04/22/19 11:00 91 27 114/52 (72) 95 04/22/19 10:00 90 25 124/29 (60) 98 Intake and Output 04/22/19 04/23/19 19:00 07:00 Intake Total 1320 ml 1320 ml Output Total 1250 ml 1450 ml Balance 70 ml -130 ml Free Water 300 ml 300 ml Tube Feeding 720 ml 720 ml Other 300 ml 300 ml Output Urine Total 450 ml 1100 ml Gastric Drainage Total 350 ml Other 800 ml # Bowel Movements 1 Current Medications Medications (Trade) Dose Ordered Sig/Maicol Route PRN Reason Start Time Stop Time Status Last Admin Dose Admin Albuterol/ Ipratropium (Albuterol/ Ipratropium) 3 ml Q4HRT HHN 04/20/19 11:00 04/25/19 10:59 04/23/19 07:28 Atropine Sulfate (Atropine Opth Adriana) 1 drop THREE TIMES A DAY SL 04/08/19 09:00 05/07/19 20:59 04/23/19 08:20 Chlorhexidine Gluconate (Cesilia-Hex 2%) 1 applic DAILY@1999 TOPIC 04/12/19 20:00 05/12/19 19:59 04/22/19 20:29 Folic Acid (Folate) 1 mg DAILY GT 04/08/19 09:00 05/08/19 08:59 04/23/19 08:18 Heparin Sodium (Porcine) (Heparin 5000 units/ml) 5,000 units EVERY 12 HOURS SUBQ 04/01/19 10:00 05/01/19 09:59 04/23/19 08:21 Hydralazine HCl (Apresoline) 25 mg Q6H PRN ORAL SBP above 150 04/06/19 02:45 05/06/19 02:44 04/06/19 11:15 Lansoprazole (Prevacid) 30 mg Q12HR GT 03/29/19 09:00 04/24/19 20:59 04/23/19 08:18 Levetiracetam (Keppra) 750 mg Q12HR GT 04/07/19 21:00 05/07/19 20:59 04/23/19 08:18 Sorbitol (Sorbitol) 30 ml BIDPRN PRN ORAL Constipation 04/13/19 11:15 05/13/19 11:14 Sorbitol (sorbitoL) 30 ml DAILY GT 04/14/19 09:00 05/14/19 08:59 04/23/19 08:18 Height (Feet): 5 Height (Inches): 3.00 Weight (Pounds): 123 General Appearance: no apparent distress EENT: other - O2 connected Cardiovascular: normal rate Respiratory/Chest: decreased breath sounds Abdomen: soft Objective no change Eric Cortez MD Apr 23, 2019 09:45
--- NOTE | 2019-04-23 10:00 | NUR ---
NURSE NOTES: Oral care completed, Pt repositioned. G Tube now draining to gravity after being clamped following medication administration. No distress noted. Will continue to monitor.
--- NOTE | 2019-04-23 12:15 | NUR ---
HAND-OFF: Report given to JEANNINE Kruger.
--- NOTE | 2019-04-23 12:30 | NUR ---
NURSE NOTES: Report received from JEANNINE Haynes. Pt lying in bed, A+Ox0, obtunded. T-piece noted, respirations even and unlabored on 5 L O2, 28% FiO2 with O2 sat of 95%. J-tube in place running Vital AF @ 60 ml/hr. G-tube in place, draining to gravity. Both tubes flushed with 100 ml H2O each. Purewick with yellow urine noted. Right upper arm PICC running TKO. Bed in lowest position, brakes engaged, siderails x3, bed alarm on, and call light within reach. Left hand blister wrapped ion Seizure and aspiration precautions in place. Head of the bed @ 30 degrees. Pt in stable condition at this time; will continue to monitor.
--- NOTE | 2019-04-23 14:44 | NUR ---
NURSE NOTES: Pt repositioned in bed and oral care given. Optifoam dressings on sacrum and right ischium clean, dry, and intact. Respirations even and unlabored on 5 L/28% O2. Vitals remained stable as documented. Pt shows no signs of acute distress. Feeding running @ prescribed rate.
--- NOTE | 2019-04-23 15:13 | Pulmonology Progress Note ---
Assessment/Plan Assessment/Plan Impression: history of Sepsis history of Pneumonia Trach, G tube, Hypertension, Cardiac disease, Dementia, Previous CVA, Seizure disorder, Respiratory failure with hypoxia Anemia, Sacral ulcer renal cyst chronic pulmonary congestion Plan continue with precautions as outlined needs suctioning oxygen low flow and stable aspiration precautions to continue elevate head and monitor secretions DNR. No CPR. ICU care reviewed meds noted off load as able nutrition skin care difficulty with placement monitor residual and reflux aspiration all changes noted and discussed chronic management reviewed medications/laboratory data/nursing notes/ICU care reviewed in detail note reviewed and edited care discussed with RN and RT Subjective ROS Limited/Unobtainable: Yes Allergies: Coded Allergies: CODEINE (Verified Allergy, Unknown, HIVES, 09/15/09) Subjective overnight events noted; respiratory status and RT care reviewed head elevated ICU care issues discussed bed bound and obtunded supportive care reviewed Objective Last 24 Hour Vital Signs Date Time Temp Pulse Resp B/P (MAP) Pulse Ox O2 Delivery O2 Flow Rate FiO2 04/23/19 14:00 88 23 116/24 (54) 100 04/23/19 13:29 100 T-Piece 6.0 28 04/23/19 13:00 88 23 112/28 (56) 100 04/23/19 12:00 5.0 28 04/23/19 12:00 86 04/23/19 12:00 99.2 86 24 106/29 (54) 100 04/23/19 12:00 T-piece 5.0 T-piece 5.0 04/23/19 11:30 85 24 100 T-Piece 6.0 28 84 26 100 04/23/19 11:00 86 24 118/28 (58) 100 04/23/19 10:00 89 24 105/28 (53) 98 04/23/19 09:00 99 26 146/37 (73) 100 04/23/19 08:00 88 04/23/19 08:00 88 29 109/35 (59) 96 04/23/19 08:00 98.9 84 20 103/22 (49) 100 04/23/19 08:00 5.0 28 04/23/19 08:00 T-piece 5.0 T-piece 5.0 04/23/19 07:29 100 T-Piece 6.0 28 04/23/19 07:29 83 20 100 T-Piece 6.0 28 84 22 100 04/23/19 07:00 84 21 115/21 (52) 100 04/23/19 06:00 90 24 113/19 (50) 100 04/23/19 05:00 85 24 123/33 (63) 100 04/23/19 04:00 97.8 85 21 125/27 (59) 100 04/23/19 04:00 84 04/23/19 04:00 T-piece 5.0 T-piece 5.0 04/23/19 04:00 5.0 28 04/23/19 03:04 81 22 100 T-Piece 6.0 28 80 21 100 04/23/19 03:00 85 25 142/37 (72) 100 04/23/19 02:00 82 23 110/41 (64) 98 04/23/19 01:09 99 T-Piece 6.0 28 04/23/19 01:00 80 21 104/22 (49) 100 04/23/19 00:00 97.5 84 22 106/19 (48) 97 04/23/19 00:00 5.0 28 04/23/19 00:00 T-piece 5.0 T-piece 5.0 04/23/19 00:00 82 04/22/19 23:00 80 21 98/44 (62) 100 04/22/19 22:53 83 22 100 T-Piece 6.0 28 81 23 100 04/22/19 22:00 86 21 161/44 (83) 100 04/22/19 21:00 87 24 120/39 (66) 97 04/22/19 20:00 5.0 28 04/22/19 20:00 T-piece 5.0 T-piece 5.0 04/22/19 20:00 85 23 124/25 (58) 99 04/22/19 20:00 86 04/22/19 19:13 85 22 100 T-Piece 6.0 28 85 23 99 04/22/19 19:13 99 T-Piece 6.0 28 04/22/19 19:00 86 21 119/26 (57) 98 04/22/19 18:00 86 22 126/30 (62) 100 04/22/19 17:00 88 22 117/20 (52) 100 04/22/19 16:00 T-piece 5.0 T-piece 5.0 04/22/19 16:00 89 04/22/19 16:00 5.0 28 04/22/19 16:00 98.2 88 22 118/27 (57) 100 04/22/19 15:30 81 22 100 T-Piece 6.0 28 85 24 99 Intake and Output 04/22/19 04/23/19 19:00 07:00 Intake Total 1320 ml 1320 ml Output Total 1250 ml 1450 ml Balance 70 ml -130 ml Free Water 300 ml 300 ml Tube Feeding 720 ml 720 ml Other 300 ml 300 ml Output Urine Total 450 ml 1100 ml Gastric Drainage Total 350 ml Other 800 ml # Bowel Movements 1 Objective WDWN NAD contracted off vent reduced breath sounds bilaterally without rhonchi or wheeze [id number] without MRG NABS nontender no HSM no CC trace edema same nonfocal nonverbal trach and gt reviewed and edited Current Medications Medications (Trade) Dose Ordered Sig/Maicol Route PRN Reason Start Time Stop Time Status Last Admin Dose Admin Albuterol/ Ipratropium (Albuterol/ Ipratropium) 3 ml Q4HRT HHN 04/20/19 11:00 04/25/19 10:59 04/23/19 11:30 Atropine Sulfate (Atropine Opth Adriana) 1 drop THREE TIMES A DAY SL 04/08/19 09:00 05/07/19 20:59 04/23/19 13:24 Chlorhexidine Gluconate (Cesilia-Hex 2%) 1 applic DAILY@2000 TOPIC 04/12/19 20:00 05/12/19 19:59 04/22/19 20:29 Folic Acid (Folate) 1 mg DAILY GT 04/08/19 09:00 05/08/19 08:59 04/23/19 08:18 Heparin Sodium (Porcine) (Heparin 5000 units/ml) 5,000 units EVERY 12 HOURS SUBQ 04/01/19 10:00 05/01/19 09:59 04/23/19 08:21 Hydralazine HCl (Apresoline) 25 mg Q6H PRN ORAL SBP above 150 04/06/19 02:45 05/06/19 02:44 04/06/19 11:15 Lansoprazole (Prevacid) 30 mg Q12HR GT 03/29/19 09:00 04/24/19 20:59 04/23/19 08:18 Levetiracetam (Keppra) 750 mg Q12HR GT 04/07/19 21:00 05/07/19 20:59 04/23/19 08:18 Sorbitol (Sorbitol) 30 ml BIDPRN PRN ORAL Constipation 04/13/19 11:15 05/13/19 11:14 Sorbitol (sorbitoL) 30 ml DAILY GT 04/14/19 09:00 05/14/19 08:59 04/23/19 08:18 Amuary Chan MD Apr 23, 2019 15:13
--- NOTE | 2019-04-23 15:52 | Surgery Progress Note ---
Surgery Progress Note Subjective Additional Comments no acute events Objective Last 24 Hour Vital Signs Date Time Temp Pulse Resp B/P (MAP) Pulse Ox O2 Delivery O2 Flow Rate FiO2 04/23/19 14:00 88 23 116/24 (54) 100 04/23/19 13:29 100 T-Piece 6.0 28 04/23/19 13:00 88 23 112/28 (56) 100 04/23/19 12:00 5.0 28 04/23/19 12:00 86 04/23/19 12:00 99.2 86 24 106/29 (54) 100 04/23/19 12:00 T-piece 5.0 T-piece 5.0 04/23/19 11:30 85 24 100 T-Piece 6.0 28 84 26 100 04/23/19 11:00 86 24 118/28 (58) 100 04/23/19 10:00 89 24 105/28 (53) 98 04/23/19 09:00 99 26 146/37 (73) 100 04/23/19 08:00 88 04/23/19 08:00 88 29 109/35 (59) 96 04/23/19 08:00 98.9 84 20 103/22 (49) 100 04/23/19 08:00 5.0 28 04/23/19 08:00 T-piece 5.0 T-piece 5.0 04/23/19 07:29 100 T-Piece 6.0 28 04/23/19 07:29 83 20 100 T-Piece 6.0 28 84 22 100 04/23/19 07:00 84 21 115/21 (52) 100 04/23/19 06:00 90 24 113/19 (50) 100 04/23/19 05:00 85 24 123/33 (63) 100 04/23/19 04:00 97.8 85 21 125/27 (59) 100 04/23/19 04:00 84 04/23/19 04:00 T-piece 5.0 T-piece 5.0 04/23/19 04:00 5.0 28 04/23/19 03:04 81 22 100 T-Piece 6.0 28 80 21 100 04/23/19 03:00 85 25 142/37 (72) 100 04/23/19 02:00 82 23 110/41 (64) 98 04/23/19 01:09 99 T-Piece 6.0 28 04/23/19 01:00 80 21 104/22 (49) 100 04/23/19 00:00 97.5 84 22 106/19 (48) 97 04/23/19 00:00 5.0 28 04/23/19 00:00 T-piece 5.0 T-piece 5.0 04/23/19 00:00 82 04/22/19 23:00 80 21 98/44 (62) 100 04/22/19 22:53 83 22 100 T-Piece 6.0 28 81 23 100 04/22/19 22:00 86 21 161/44 (83) 100 04/22/19 21:00 87 24 120/39 (66) 97 04/22/19 20:00 5.0 28 04/22/19 20:00 T-piece 5.0 T-piece 5.0 04/22/19 20:00 85 23 124/25 (58) 99 04/22/19 20:00 86 04/22/19 19:13 85 22 100 T-Piece 6.0 28 85 23 99 04/22/19 19:13 99 T-Piece 6.0 28 04/22/19 19:00 86 21 119/26 (57) 98 04/22/19 18:00 86 22 126/30 (62) 100 04/22/19 17:00 88 22 117/20 (52) 100 04/22/19 16:00 T-piece 5.0 T-piece 5.0 04/22/19 16:00 89 04/22/19 16:00 5.0 28 04/22/19 16:00 98.2 88 22 118/27 (57) 100 I&O Intake and Output 04/22/19 04/23/19 19:00 07:00 Intake Total 1320 ml 1320 ml Output Total 1250 ml 1450 ml Balance 70 ml -130 ml Free Water 300 ml 300 ml Tube Feeding 720 ml 720 ml Other 300 ml 300 ml Output Urine Total 450 ml 1100 ml Gastric Drainage Total 350 ml Other 800 ml # Bowel Movements 1 Dressing: other Wound: other Drains: other Cardiovascular: RSR Respiratory: decreased breath sounds Abdomen: soft, present bowel sounds Extremities: no cyanosis Plan Problems: (1) Sacral decubitus ulcer Assessment & Plan: This is a 83-year-old female with multiple medical committees that is currently admitted for medical care and management and identified to have multiple wounds requiring care. On admission patient noted to have a resolved sacral decubitus ulcer. Has had prior care and is well-healed at this time. Will ensure it does not open up again. Patient has a right ischial decubitus ulcer that is resolved. Scar intact and well formed. Will monitor to ensure it does not open up again. Patient has a left ischial decubitus ulcer that can be identified to be stage IV with palpable bone that has been resolving as noted by the periwound tissue and scar but open area approximately 1 cm x 1.5 cm few millimeters deep to bone identified. Unsure if this is been to be completely healed prior and has since opened or if has been healing at this level. No foul odor no drainage was unsure local wound care until healed Bilateral heels soft without signs of injury Resolving pressure injury L ischium(L)1.8cm x (W)1cm.Scattered biofilm at base of wound. Edges flat and adherent with surrounding hyperpigmentation. No odor or exudate noted. Sacrum is pale pink with surrounding hyperpigmentation. Hyperpigmentation R ischium with small sheared area centrally.No areas of erythema or exudate noted. Both heels are soft but blanchable. Skin Assessed under collar of trach and no evidence of skin breakdown noted. All wound Tx. are effective and continued as ordered. Pt ahs an APM/Belén mattress overlay and is being repositioned per protocols and per tolerance.No new skin concerns noted. Full thickness pressure injury L Ischium with small amt biofilm (L)1.8cm x (W) 1cm. Surrounding pink hyperpigmentation. No odor or exudate noted. [place] hyperpigmentation from previous wound noted to sacrum. Pt also noted to have Cat 2 Skin Tear dorsal L hand, L 5th metatarsal extending into palm of hand. 80% skin flap in situ.Both heels are dry firm and blanchable. No other skin concerns noted. R ischial wound has resolved. [place] epithelial with surrounding hyperpigmentation. from historical wound. Full thickness pressure injury L ischium. [place] granulation at base of wound. Borders are macerated with Surrounding hyperpigmentation.Small amt non-odorous serous exudate noted.(L)0.7cm x (W)0.8cm. Skin hyperpigmentation from historical wound noted to Sacrum. Small sheared area noted to sacrococcygeal area.(L)0.4cm x (W)0.3cm.Small amt sanguineous exudate noted. Reabsorbed blister with semi-detached dry necrotic cap noted to web space of L thumb and L index fingers extending into palm of L hand. No odor or exudate noted. Skin assessed under tracheal collar and no erythema or evidence of Skin Breakdown noted. NO new skin concerns noted . Good hand hygiene provided to both hands. R hand contracted and fisted. Fingernails trimmed. Wound care provided along with Primary nurse. Wound Tx continued as ordered. New order obtained from to apply Betadine to wound L hand Daily. Tx done as ordered. L hand wrapped with kerlix weaving kerlix between fingers to separate fingers. Moisture Barrier applied to sacrum ,R ischium. Each site covered with Optifoam drsg. Both lower ext washed and moisturized. [place] Skin Barrier applied to both heels.Each heel covered with Optifoam drsgs. Pt positioned with pillows and both heels off-loaded with pillow. Pt wounds are resolving. Loose necrotic cap within web space of L index finger and L thumb easily removed with gentle friction. Base of wound is hypergranular with 10% necrosis. Borders are macerated. Application of Silver Nitrate to hypergranular base done. [place] Skin Barrier applied to borders . Good hand hygiene provided. Wound covered with Abd pad. L hand wrapped with Kerlix weaving Kerlix between digitsof L hand. Pressure injury L ischium resolving. Base iof wound is pale pink and dry with surrounding hyperpigmentation and scar from previous wound. Hyperpigmentation with historical scars noted to Sacrum and R ischium. Both heels are soft and blanchable. Skin Assessed under trach collar and no evidence of skin breakdown noted. Tx.Plan: Apply Betadine to wound L hand. Cover with Gauze and wrap with Kerlix Daily and prn. Cleanse L ischial wound with Saline. Apply Therahoney. Apply Moisture Barrier periwound. Cover with Optifoam drsgevery 3 days and prn. Apply Moisture Barrier Paste to R ischium and Sacrum. Cover each area with Optifoam drsg. Change every 3 days and prn. Apply Cavilon Skin Barrier to both heels. Cover each heel with Optifoam drsg. Change every 7 days and prn. Cleanse Blister Dorsal and palm of L hand with saline. Versatel One Silicone Contact Layer(Applied). Apply Silvasorb Gel. Wrap with Kerlix Gauze.Change every 7 days and prn. Apply Moisture Barrier to sacrum. Cover with Optifoam drsg. Change every 3 days and prn. APM/BELÉN Mattress overlay. Reposition at least every 2hours or as tolerated. Off-load heels with pillow. Nutritional optimization We will monitor follow with recommendations cont with above upon d/c wounds healing overall improving (2) Sepsis Assessment & Plan: IV abx as per ID trend labs improving wounds unlikely etiology likely respiratory imaging noted and okay abnormal lft's stable PICC on Abx in ICU for desaturation CXR with consolidation cont with frequent suctioning d/c planning g j via GI daughter wants close attention to wounds and management to ensure healing Evidence of left lower lobe pneumonia, also previously demonstrated Gastrostomy in good position Mild diastasis of the rectus abdominis musculature again demonstrated Retrosacral decubitus changes, better depicted on prior exam which included the pelvis Small hiatal hernia with evidence of trace gastroesophageal reflux Discussed with GI. Recommend GJ family still pending decision transfuse prbc prn monitor h/h monitor bm LFTs improving trending down (3) Feeding by G-tube Assessment & Plan: DAILY ESTIMATED NEEDS: Needs based on Pulmonary, wounds, bedbound/ 61kg adj 25-30 kcals/kg 8892-7262 total kcals 1.25-2 g protein/kg 76-122 g total protein 25-30 mL/kg 8367-1179 total fluid mLs NUTRITION DIAGNOSIS: * Increased kcal/prot needs R/T wound healing as evidenced by BL buttocks and sacral wound photos, refer to WC eval. * Swallowing difficulty R/T respiratory status as evidenced by pt on T-collar, s/p G-J conversion CURRENT TF:Glucerna 1.5 @ 50ml/hr x 24 hrs ENTERAL NUTRITION RECOMMENDATIONS: Glucerna 1.5 @ 50ml/hr x 24 hrs to provide 1200ml, 1800 kcal, 99g pro, 911ml free H2O - Maintain at current rate as tolerated to meet 100% est needs - HOB over 30 degrees - INCREASE water flush of 170ml q 6 hrs ADDITIONAL RECOMMENDATIONS: 1) RE-calibrate bedscale wt: fluctuating daily wts (108#-136# last 6 days) 2) Wound healing: Add Cristian 1pkt BID w/ continued good TF tolerance. 3) Increase water flushes, monitor for signs of water deficits 4) Monitor BGs closely, need for NISS -> now w/ improved BGs 5) Monitor for continued good TF tolerance 6) Monitor K : elev K on 03/25, s/p Kdur BID, now dc'ed. (4) Chronic vegetative state Assessment & Plan: incontinence of urine and stool. can soil dressings. nurses doing great job with monitoring and changing prn (5) Leukocytosis Walter Madera Apr 23, 2019 15:52
--- NOTE | 2019-04-23 16:51 | NUR ---
NURSE NOTES Pt repositioned and suctioned. O2 saturation 97%. All other vitals stable as documented.
--- NOTE | 2019-04-23 18:02 | NUR ---
NURSE NOTES: Pt had small brown BM. Pt cleaned and repositioned. Vital signs stable as documented.
--- NOTE | 2019-04-23 19:26 | NUR ---
HAND-OFF: Report given to JEANNINE Anglin. Pt in stable condition; plan of care endorsed.
--- NOTE | 2019-04-23 19:28 | NUR ---
NURSE NOTES: received report from todd mann pt obtunded trach -t-piece 28 o/o o2 sat 99 o/o tolerating tube feeding no residual reposition and suction
[2019-04-23] MEDS: Dyna-Hex 2% Top Sol 2oz TOPIC SCH (20:46)
--- NOTE | 2019-04-23 22:00 | NUR ---
NURSE NOTES: reposition and suction no resp distress noted
--- NOTE | 2019-04-23 22:12 | General Progress Note ---
Assessment/Plan Status: stable, progressing Assessment/Plan: Assessment - N/V - resolved with G --> J conversion - constipation - partly due to low residue formula used, good response to sorbitol - Elevated Alk phos / LFT - CT negative - abd U/S negative - check hepatitis serologies - negative - possibly MURRAY / Fatty liver - will periodically monitor - Anemia with OB (-) stools - Resp failure, s/p Trach - dysphagia, s/p PEG --> GJ tube - OBS, vegetative obtunded unresponsive state, bedbound with contracted extremities, - h/o minor GJ tube site irritation - elevated BUN/Cr - poor Prognosis Recommendations - daily sorbitol, and PRN sorbitol - Follow BUN/Cr - Cristian BID - antibiotic ointment to GJT site PRN - aspiration precautions - elevate HOB - Vital AF 1.2 - check q 6 hour FS - transfuse to keep Hg > 7 - J tube feeds - G tube drain Subjective Allergies: Coded Allergies: CODEINE (Verified Allergy, Unknown, HIVES, 09/15/09) Subjective above noted tolerating TF via J port d/w RN (+) BM Objective Last 24 Hour Vital Signs Date Time Temp Pulse Resp B/P (MAP) Pulse Ox O2 Delivery O2 Flow Rate FiO2 04/23/19 20:19 97 T-Piece 6.0 28 04/23/19 20:18 88 25 100 T-Piece 6.0 28 87 27 97 04/23/19 19:00 94 28 130/40 (70) 99 04/23/19 18:00 88 120/32 (61) 98 04/23/19 17:00 86 26 113/25 (54) 99 04/23/19 16:00 T-piece 5.0 T-piece 5.0 04/23/19 16:00 83 04/23/19 16:00 98.8 83 26 115/34 (61) 98 04/23/19 16:00 5.0 28 04/23/19 15:00 86 26 106/26 (52) 100 04/23/19 14:00 88 23 116/24 (54) 100 04/23/19 13:29 100 T-Piece 6.0 28 04/23/19 13:00 88 23 112/28 (56) 100 04/23/19 12:00 5.0 28 04/23/19 12:00 86 04/23/19 12:00 99.2 86 24 106/29 (54) 100 04/23/19 12:00 T-piece 5.0 T-piece 5.0 04/23/19 11:30 85 24 100 T-Piece 6.0 28 84 26 100 04/23/19 11:00 86 24 118/28 (58) 100 04/23/19 10:00 89 24 105/28 (53) 98 04/23/19 09:00 99 26 146/37 (73) 100 04/23/19 08:00 88 04/23/19 08:00 88 29 109/35 (59) 96 04/23/19 08:00 98.9 84 20 103/22 (49) 100 04/23/19 08:00 5.0 28 04/23/19 08:00 T-piece 5.0 T-piece 5.0 04/23/19 07:29 100 T-Piece 6.0 28 04/23/19 07:29 83 20 100 T-Piece 6.0 28 84 22 100 04/23/19 07:00 84 21 115/21 (52) 100 04/23/19 06:00 90 24 113/19 (50) 100 04/23/19 05:00 85 24 123/33 (63) 100 04/23/19 04:00 97.8 85 21 125/27 (59) 100 04/23/19 04:00 84 04/23/19 04:00 T-piece 5.0 T-piece 5.0 04/23/19 04:00 5.0 28 04/23/19 03:04 81 22 100 T-Piece 6.0 28 80 21 100 04/23/19 03:00 85 25 142/37 (72) 100 04/23/19 02:00 82 23 110/41 (64) 98 04/23/19 01:09 99 T-Piece 6.0 28 04/23/19 01:00 80 21 104/22 (49) 100 04/23/19 00:00 97.5 84 22 106/19 (48) 97 04/23/19 00:00 5.0 28 04/23/19 00:00 T-piece 5.0 T-piece 5.0 04/23/19 00:00 82 04/22/19 23:00 80 21 98/44 (62) 100 04/22/19 22:53 83 22 100 T-Piece 6.0 28 81 23 100 Intake and Output 04/22/19 04/23/19 19:00 07:00 Intake Total 1320 ml 1320 ml Output Total 1250 ml 1450 ml Balance 70 ml -130 ml Free Water 300 ml 300 ml Tube Feeding 720 ml 720 ml Other 300 ml 300 ml Output Urine Total 450 ml 1100 ml Gastric Drainage Total 350 ml Other 800 ml # Bowel Movements 1 Height (Feet): 5 Height (Inches): 3.00 Weight (Pounds): 123 Objective Debilitated AA woman non-verbal, obtunded NCAT (+) trach coarse BS RR obese abd, (+) GJT no edema (+) contractured extremities Celio Vaughan MD Apr 23, 2019 22:12
[2019-04-24] VITALS (24 sets, daily range): BP systolic 90–146; BP diastolic 29–52
--- NOTE | 2019-04-24 | NUR ---
NURSE NOTES: bs 120 no coverage
--- NOTE | 2019-04-24 02:00 | NUR ---
NURSE NOTES:no acute distress noted
--- NOTE | 2019-04-24 04:00 | NUR ---
NURSE NOTES: complete bed bath oral care and back care wound care done
--- NOTE | 2019-04-24 04:45 | Progress Note ---
DATE: 04/23/2019 CARDIOLOGY PROGRESS NOTE SUBJECTIVE: The patient remains on T-tube support with trach. Monitored rhythm sinus. OBJECTIVE: VITAL SIGNS: Blood pressure 115/21, heart rate 84, respiratory rate 21. LUNGS: Bilateral breath sounds. CARDIAC: No obvious murmurs. Regular rhythm and rate. Normal S1, S2. ABDOMEN: Soft. EXTREMITIES: Trace edema. IMPRESSION: 1. Increased pulse, pressure persists. 2. No clinical signs of aortic insufficiency. 3. Respiratory parameters stable. 4. Diastolic dysfunction with compensated congestive heart failure and stable cardiac rhythm. PLAN: 1. No indication for further workup of low diastolic blood pressure unless symptomatic. 2. Maintain current regimen. 3. Conservative management in view of impaired function. Bg Hagen M.D. DR: SHIRA JOB#: [id number] CC:
--- NOTE | 2019-04-24 06:00 | NUR ---
NURSE NOTES: sleeping at interval no acute resp distress
[2019-04-24 06:23] LABS: BASOPHILS % (AUTO) 0.3 % (0.0-2.0); EOSINOPHILS % (AUTO) 2.6 % (0.0-3.0); HEMATOCRIT 29.1 % (37.0-47.0); HEMOGLOBIN 9.6 G/DL (12.0-16.0); LYMPHOCYTES % (AUTO) 22.9 % (20.0-45.0); MEAN CORPUSCULAR VOLUME 89 FL (80-99); MONOCYTES % (AUTO) 5.4 % (1.0-10.0); NEUTROPHILS % (AUTO) 68.8 % (45.0-75.0); PLATELET COUNT 193 K/UL (150-450); RED BLOOD COUNT 3.26 M/UL (4.20-5.40); RED CELL DISTRIBUTION WIDTH 14.9 % (11.6-14.8); WHITE BLOOD COUNT 9.3 K/UL (4.8-10.8)
[2019-04-24] MEDS: Albuterol/Ipratropium 3ml neb HHN SCH ×5 (06:56→23:05)
[2019-04-24 07:04] LABS: ALANINE AMINOTRANSFERASE 143 U/L (12-78); ALBUMIN/GLOBULIN RATIO 0.6 (1.0-2.7); ALKALINE PHOSPHATASE 178 U/L (46-116); ANION GAP 9 mmol/L (5-15); ASPARTATE AMINO TRANSFERASE 76 U/L (15-37); BILIRUBIN,TOTAL 0.3 MG/DL (0.2-1.0); BLOOD UREA NITROGEN 65 mg/dL (7-18); CALCIUM 8.7 MG/DL (8.5-10.1); CARBON DIOXIDE 26 MMOL/L (21-32); CHLORIDE 106 MMOL/L (98-107); CREATININE 1.1 MG/DL (0.55-1.30); POTASSIUM 4.4 MMOL/L (3.5-5.1); SODIUM 141 MMOL/L (136-145)
[2019-04-24 07:24] LABS: PHOSPHORUS 3.8 MG/DL (2.5-4.9)
--- NOTE | 2019-04-24 07:44 | NUR ---
NURSE NOTES: Received patient from Patti PAEZ. Patient is obtunded. Sinus Rhythm on the Heart monitor, HR 86. Receiving oxygen via T-piece FiO2 28%. G-tube/J-tube is intact and receiving Vital AF at 60cc/hr, patient tolerating well, no residuals. IV site is Right Upper Arm PICC, patent and intact. Bed is locked, placed in lowest position, side rails up x3, bed alarm on, call light within reach. Will continue to monitor.
--- NOTE | 2019-04-24 08:51 | NUR ---
NURSE NOTES: Patient seen and assessed by Dr. Cortez.
[2019-04-24] MEDS: Sorbitol Solution UD 30ml GT SCH (09:05)
[2019-04-24] MEDS: Heparin 5000 units/ml inj SUBQ SCH ×2 (09:08→20:40)
--- NOTE | 2019-04-24 09:46 | Nephrology Progress Note ---
Assessment/Plan Problem List: (1) Acute renal failure (ARF) Assessment: Cr stable (2) Chronic respiratory failure (3) Anemia (4) Sepsis Assessment Acute renal failure Respiratory failure - Trach Low Mag- Low k , Low Na Anemia UTI / Sepsis Proteinuria / HypoAlbuminemia high Trigs Sz decubs bed bound DNR Plan Transfused previously now has JT bolus Albumin as needed K and Mag and Phos supplement as needed Hydrate as needed Urine studies avoid Nephrotoxics mag K Phos supplements as needed monitor renal parameters Subjective ROS Limited/Unobtainable: Yes Objective Objective Last 24 Hour Vital Signs Date Time Temp Pulse Resp B/P (MAP) Pulse Ox O2 Delivery O2 Flow Rate FiO2 04/24/19 07:03 83 23 100 T-Piece 6.0 28 89 21 100 04/24/19 06:53 100 T-Piece 6.0 28 04/24/19 06:53 89 21 100 T-Piece 6.0 28 04/24/19 06:00 87 25 96/47 (63) 98 04/24/19 06:00 87 04/24/19 05:00 86 27 121/51 (74) 98 04/24/19 04:00 98.5 86 25 131/52 (78) 99 04/24/19 04:00 T-piece 5.0 T-piece 5.0 04/24/19 04:00 87 04/24/19 04:00 5.0 28 04/24/19 03:05 85 26 100 T-Piece 6.0 28 83 26 100 04/24/19 03:00 84 26 99/34 (55) 97 04/24/19 02:00 88 30 94/38 (56) 95 04/24/19 01:10 99 T-Piece 6.0 28 04/24/19 01:00 89 29 90/33 (52) 98 04/24/19 00:00 98.0 82 26 96/42 (60) 99 04/24/19 00:00 87 04/24/19 00:00 T-piece 5.0 T-piece 5.0 04/24/19 00:00 98.0 04/24/19 00:00 5.0 28 04/23/19 23:52 89 26 100 T-Piece 6.0 28 86 28 99 04/23/19 23:00 86 28 99/42 (61) 98 04/23/19 22:00 88 28 93/42 (59) 97 04/23/19 21:00 87 23 111/38 (62) 98 04/23/19 20:19 97 T-Piece 6.0 28 04/23/19 20:18 88 25 100 T-Piece 6.0 28 87 27 97 04/23/19 20:00 5.0 28 04/23/19 20:00 T-piece 5.0 T-piece 5.0 04/23/19 20:00 88 04/23/19 20:00 98.4 89 22 109/44 (65) 97 04/23/19 19:00 94 28 130/40 (70) 99 04/23/19 18:00 88 120/32 (61) 98 04/23/19 17:00 86 26 113/25 (54) 99 04/23/19 16:00 T-piece 5.0 T-piece 5.0 04/23/19 16:00 83 04/23/19 16:00 98.8 83 26 115/34 (61) 98 04/23/19 16:00 5.0 28 04/23/19 15:00 86 26 106/26 (52) 100 04/23/19 14:00 88 23 116/24 (54) 100 04/23/19 13:29 100 T-Piece 6.0 28 04/23/19 13:00 88 23 112/28 (56) 100 04/23/19 12:00 5.0 28 04/23/19 12:00 86 04/23/19 12:00 99.2 86 24 106/29 (54) 100 04/23/19 12:00 T-piece 5.0 T-piece 5.0 04/23/19 11:30 85 24 100 T-Piece 6.0 28 84 26 100 04/23/19 11:00 86 24 118/28 (58) 100 04/23/19 10:00 89 24 105/28 (53) 98 Intake and Output 04/23/19 04/24/19 18:59 06:59 Intake Total 1420 ml 1320 ml Output Total 1365 ml 1240 ml Balance 55 ml 80 ml Free Water 400 ml 300 ml Tube Feeding 720 ml 720 ml Other 300 ml 300 ml Output Urine Total 500 ml 890 ml Gastric Drainage Total 865 ml 350 ml # Bowel Movements 1 1 Current Medications Medications (Trade) Dose Ordered Sig/Maicol Route PRN Reason Start Time Stop Time Status Last Admin Dose Admin Albuterol/ Ipratropium (Albuterol/ Ipratropium) 3 ml Q4HRT HHN 04/20/19 11:00 04/25/19 10:59 04/24/19 11:07 Atropine Sulfate (Atropine Opth Adriana) 1 drop THREE TIMES A DAY SL 04/08/19 09:00 05/07/19 20:59 04/24/19 09:05 Chlorhexidine Gluconate (Cesilia-Hex 2%) 1 applic DAILY@1999 TOPIC 04/12/19 20:00 05/12/19 19:59 04/23/19 20:46 Folic Acid (Folate) 1 mg DAILY GT 04/08/19 09:00 05/08/19 08:59 04/24/19 09:04 Heparin Sodium (Porcine) (Heparin 5000 units/ml) 5,000 units EVERY 12 HOURS SUBQ 04/01/19 10:00 05/01/19 09:59 04/24/19 09:08 Hydralazine HCl (Apresoline) 25 mg Q6H PRN ORAL SBP above 150 04/06/19 02:45 05/06/19 02:44 04/06/19 11:15 Lansoprazole (Prevacid) 30 mg Q12HR GT 03/29/19 09:00 04/24/19 20:59 04/24/19 09:05 Levetiracetam (Keppra) 750 mg Q12HR GT 04/07/19 21:00 05/07/19 20:59 04/24/19 09:04 Sorbitol (Sorbitol) 30 ml BIDPRN PRN ORAL Constipation 04/13/19 11:15 05/13/19 11:14 Sorbitol (sorbitoL) 30 ml DAILY GT 04/14/19 09:00 05/14/19 08:59 04/24/19 09:05 Laboratory Tests 04/24/19 05:00: White Blood Count 9.3, Red Blood Count 3.26L, Hemoglobin 9.6L, Hematocrit 29.1L , Mean Corpuscular Volume 89, Mean Corpuscular Hemoglobin 29.6, Mean Corpuscular Hemoglobin Concent 33.2, Red Cell Distribution Width 14.9H, Platelet Count 193, Mean Platelet Volume 5.6L, Neutrophils (%) (Auto) 68.8, Lymphocytes (%) (Auto) 22.9, Monocytes (%) (Auto) 5.4, Eosinophils (%) (Auto) 2.6, Basophils (%) (Auto) 0.3, Sodium Level 141, Potassium Level 4.4, Chloride Level 106, Carbon Dioxide Level 26, Anion Gap 9, Blood Urea Nitrogen 65H, Creatinine 1.1, Estimat Glomerular Filtration Rate , Glucose Level 121H, Calcium Level 8.7, Phosphorus Level 3.8, Magnesium Level 2.3, Total Bilirubin 0.3, Aspartate Amino Transf (AST/SGOT) 76H, Alanine Aminotransferase (ALT/SGPT) 143H, Alkaline Phosphatase 178H, Troponin I 0.000, C-Reactive Protein, Quantitative 4.4H, Pro-B-Type Natriuretic Peptide [Pending], Total Protein 8.3H , Albumin 3.0L, Globulin 5.3, Albumin/Globulin Ratio 0.6L Height (Feet): 5 Height (Inches): 3.00 Weight (Pounds): 120 General Appearance: no apparent distress EENT: other - O2 to trach Respiratory/Chest: decreased breath sounds Abdomen: distended Objective no change Eric Cortez MD Apr 24, 2019 09:46
--- NOTE | 2019-04-24 10:42 | Surgery Progress Note ---
Surgery Progress Note Subjective Additional Comments no acute events Objective Last 24 Hour Vital Signs Date Time Temp Pulse Resp B/P (MAP) Pulse Ox O2 Delivery O2 Flow Rate FiO2 04/24/19 10:00 90 30 121/34 (63) 93 04/24/19 09:00 78 22 113/29 (57) 99 04/24/19 08:00 98.2 84 21 106/45 (65) 99 04/24/19 08:00 T-piece 5.0 T-piece 5.0 04/24/19 08:00 5.0 28 04/24/19 07:03 84 04/24/19 07:03 83 23 100 T-Piece 6.0 28 89 21 100 04/24/19 07:00 81 21 146/41 (76) 100 04/24/19 06:53 100 T-Piece 6.0 28 04/24/19 06:53 89 21 100 T-Piece 6.0 28 04/24/19 06:00 87 25 96/47 (63) 98 04/24/19 06:00 87 04/24/19 05:00 86 27 121/51 (74) 98 04/24/19 04:00 98.5 86 25 131/52 (78) 99 04/24/19 04:00 T-piece 5.0 T-piece 5.0 04/24/19 04:00 87 04/24/19 04:00 5.0 28 04/24/19 03:05 85 26 100 T-Piece 6.0 28 83 26 100 04/24/19 03:00 84 26 99/34 (55) 97 04/24/19 02:00 88 30 94/38 (56) 95 04/24/19 01:10 99 T-Piece 6.0 28 04/24/19 01:00 89 29 90/33 (52) 98 04/24/19 00:00 98.0 82 26 96/42 (60) 99 04/24/19 00:00 87 04/24/19 00:00 T-piece 5.0 T-piece 5.0 04/24/19 00:00 98.0 04/24/19 00:00 5.0 28 04/23/19 23:52 89 26 100 T-Piece 6.0 28 86 28 99 04/23/19 23:00 86 28 99/42 (61) 98 04/23/19 22:00 88 28 93/42 (59) 97 04/23/19 21:00 87 23 111/38 (62) 98 04/23/19 20:19 97 T-Piece 6.0 28 04/23/19 20:18 88 25 100 T-Piece 6.0 28 87 27 97 04/23/19 20:00 5.0 28 04/23/19 20:00 T-piece 5.0 T-piece 5.0 04/23/19 20:00 88 04/23/19 20:00 98.4 89 22 109/44 (65) 97 04/23/19 19:00 94 28 130/40 (70) 99 04/23/19 18:00 88 120/32 (61) 98 04/23/19 17:00 86 26 113/25 (54) 99 04/23/19 16:00 T-piece 5.0 T-piece 5.0 04/23/19 16:00 83 04/23/19 16:00 98.8 83 26 115/34 (61) 98 04/23/19 16:00 5.0 28 04/23/19 15:00 86 26 106/26 (52) 100 04/23/19 14:00 88 23 116/24 (54) 100 04/23/19 13:29 100 T-Piece 6.0 28 04/23/19 13:00 88 23 112/28 (56) 100 04/23/19 12:00 5.0 28 04/23/19 12:00 86 04/23/19 12:00 99.2 86 24 106/29 (54) 100 04/23/19 12:00 T-piece 5.0 T-piece 5.0 04/23/19 11:30 85 24 100 T-Piece 6.0 28 84 26 100 04/23/19 11:00 86 24 118/28 (58) 100 I&O Intake and Output 04/23/19 04/24/19 18:59 06:59 Intake Total 1420 ml 1320 ml Output Total 1365 ml 1240 ml Balance 55 ml 80 ml Free Water 400 ml 300 ml Tube Feeding 720 ml 720 ml Other 300 ml 300 ml Output Urine Total 500 ml 890 ml Gastric Drainage Total 865 ml 350 ml # Bowel Movements 1 1 Dressing: dry Wound: clean Cardiovascular: RSR Respiratory: clear Abdomen: soft, non-tender, present bowel sounds Extremities: no tenderness, no cyanosis Laboratory Tests Test 04/24/19 05:00 White Blood Count 9.3 K/UL (4.8-10.8) Red Blood Count 3.26 M/UL (4.20-5.40) L Hemoglobin 9.6 G/DL (12.0-16.0) L Hematocrit 29.1 % (37.0-47.0) L Mean Corpuscular Volume 89 FL (80-99) Mean Corpuscular Hemoglobin 29.6 PG (27.0-31.0) Mean Corpuscular Hemoglobin Concent 33.2 G/DL (32.0-36.0) Red Cell Distribution Width 14.9 % (11.6-14.8) H Platelet Count 193 K/UL (150-450) Mean Platelet Volume 5.6 FL (6.5-10.1) L Neutrophils (%) (Auto) 68.8 % (45.0-75.0) Lymphocytes (%) (Auto) 22.9 % (20.0-45.0) Monocytes (%) (Auto) 5.4 % (1.0-10.0) Eosinophils (%) (Auto) 2.6 % (0.0-3.0) Basophils (%) (Auto) 0.3 % (0.0-2.0) Sodium Level 141 MMOL/L (136-145) Potassium Level 4.4 MMOL/L (3.5-5.1) Chloride Level 106 MMOL/L (98-107) Carbon Dioxide Level 26 MMOL/L (21-32) Anion Gap 9 mmol/L (5-15) Blood Urea Nitrogen 65 mg/dL (7-18) H Creatinine 1.1 MG/DL (0.55-1.30) Estimat Glomerular Filtration Rate mL/min (>60) Glucose Level 121 MG/DL (74-106) H Calcium Level 8.7 MG/DL (8.5-10.1) Phosphorus Level 3.8 MG/DL (2.5-4.9) Magnesium Level 2.3 MG/DL (1.8-2.4) Total Bilirubin 0.3 MG/DL (0.2-1.0) Aspartate Amino Transf (AST/SGOT) 76 U/L (15-37) H Alanine Aminotransferase (ALT/SGPT) 143 U/L (12-78) H Alkaline Phosphatase 178 U/L (46-116) H Troponin I 0.000 ng/mL (0.000-0.056) C-Reactive Protein, Quantitative 4.4 mg/dL (0.00-0.90) H Pro-B-Type Natriuretic Peptide Pending Total Protein 8.3 G/DL (6.4-8.2) H Albumin 3.0 G/DL (3.4-5.0) L Globulin 5.3 g/dL Albumin/Globulin Ratio 0.6 (1.0-2.7) L Plan Problems: (1) Sacral decubitus ulcer Assessment & Plan: This is a 83-year-old female with multiple medical committees that is currently admitted for medical care and management and identified to have multiple wounds requiring care. On admission patient noted to have a resolved sacral decubitus ulcer. Has had prior care and is well-healed at this time. Will ensure it does not open up again. Patient has a right ischial decubitus ulcer that is resolved. Scar intact and well formed. Will monitor to ensure it does not open up again. Patient has a left ischial decubitus ulcer that can be identified to be stage IV with palpable bone that has been resolving as noted by the periwound tissue and scar but open area approximately 1 cm x 1.5 cm few millimeters deep to bone identified. Unsure if this is been to be completely healed prior and has since opened or if has been healing at this level. No foul odor no drainage was unsure local wound care until healed Bilateral heels soft without signs of injury Resolving pressure injury L ischium(L)1.8cm x (W)1cm.Scattered biofilm at base of wound. Edges flat and adherent with surrounding hyperpigmentation. No odor or exudate noted. Sacrum is pale pink with surrounding hyperpigmentation. Hyperpigmentation R ischium with small sheared area centrally.No areas of erythema or exudate noted. Both heels are soft but blanchable. Skin Assessed under collar of trach and no evidence of skin breakdown noted. All wound Tx. are effective and continued as ordered. Pt ahs an APM/Belén mattress overlay and is being repositioned per protocols and per tolerance.No new skin concerns noted. Full thickness pressure injury L Ischium with small amt biofilm (L)1.8cm x (W) 1cm. Surrounding pink hyperpigmentation. No odor or exudate noted. [place] hyperpigmentation from previous wound noted to sacrum. Pt also noted to have Cat 2 Skin Tear dorsal L hand, L 5th metatarsal extending into palm of hand. 80% skin flap in situ.Both heels are dry firm and blanchable. No other skin concerns noted. R ischial wound has resolved. [place] epithelial with surrounding hyperpigmentation. from historical wound. Full thickness pressure injury L ischium. [place] granulation at base of wound. Borders are macerated with Surrounding hyperpigmentation.Small amt non-odorous serous exudate noted.(L)0.7cm x (W)0.8cm. Skin hyperpigmentation from historical wound noted to Sacrum. Small sheared area noted to sacrococcygeal area.(L)0.4cm x (W)0.3cm.Small amt sanguineous exudate noted. Reabsorbed blister with semi-detached dry necrotic cap noted to web space of L thumb and L index fingers extending into palm of L hand. No odor or exudate noted. Skin assessed under tracheal collar and no erythema or evidence of Skin Breakdown noted. NO new skin concerns noted . Good hand hygiene provided to both hands. R hand contracted and fisted. Fingernails trimmed. Wound care provided along with Primary nurse. Wound Tx continued as ordered. New order obtained from to apply Betadine to wound L hand Daily. Tx done as ordered. L hand wrapped with kerlix weaving kerlix between fingers to separate fingers. Moisture Barrier applied to sacrum ,R ischium. Each site covered with Optifoam drsg. Both lower ext washed and moisturized. Cavilon Skin Barrier applied to both heels.Each heel covered with Optifoam drsgs. Pt positioned with pillows and both heels off-loaded with pillow. Pt wounds are resolving. Loose necrotic cap within web space of L index finger and L thumb easily removed with gentle friction. Base of wound is hypergranular with 10% necrosis. Borders are macerated. Application of Silver Nitrate to hypergranular base done. Cavilon Skin Barrier applied to borders . Good hand hygiene provided. Wound covered with Abd pad. L hand wrapped with Kerlix weaving Kerlix between digitsof L hand. Pressure injury L ischium resolving. Base iof wound is pale pink and dry with surrounding hyperpigmentation and scar from previous wound. Hyperpigmentation with historical scars noted to Sacrum and R ischium. Both heels are soft and blanchable. Skin Assessed under trach collar and no evidence of skin breakdown noted. Tx.Plan: Apply Betadine to wound L hand. Cover with Gauze and wrap with Kerlix Daily and prn. Cleanse L ischial wound with Saline. Apply Therahoney. Apply Moisture Barrier periwound. Cover with Optifoam drsgevery 3 days and prn. Apply Moisture Barrier Paste to R ischium and Sacrum. Cover each area with Optifoam drsg. Change every 3 days and prn. Apply Cavilon Skin Barrier to both heels. Cover each heel with Optifoam drsg. Change every 7 days and prn. Cleanse Blister Dorsal and palm of L hand with saline. Versatel One Silicone Contact Layer(Applied). Apply Silvasorb Gel. Wrap with Kerlix Gauze.Change every 7 days and prn. Apply Moisture Barrier to sacrum. Cover with Optifoam drsg. Change every 3 days and prn. APM/BELÉN Mattress overlay. Reposition at least every 2hours or as tolerated. Off-load heels with pillow. Nutritional optimization We will monitor follow with recommendations cont with above upon d/c wounds healing overall improving (2) Sepsis Assessment & Plan: IV abx as per ID trend labs improving wounds unlikely etiology likely respiratory imaging noted and okay abnormal lft's stable PICC on Abx in ICU for desaturation CXR with consolidation cont with frequent suctioning d/c planning g j via GI daughter wants close attention to wounds and management to ensure healing Evidence of left lower lobe pneumonia, also previously demonstrated Gastrostomy in good position Mild diastasis of the rectus abdominis musculature again demonstrated Retrosacral decubitus changes, better depicted on prior exam which included the pelvis Small hiatal hernia with evidence of trace gastroesophageal reflux Discussed with GI. Recommend GJ family still pending decision transfuse prbc prn monitor h/h monitor bm LFTs improving trending down (3) Feeding by G-tube Assessment & Plan: DAILY ESTIMATED NEEDS: Needs based on Pulmonary, wounds, bedbound/ 61kg adj 25-30 kcals/kg 7361-7210 total kcals 1.25-2 g protein/kg 76-122 g total protein 25-30 mL/kg 3096-4721 total fluid mLs NUTRITION DIAGNOSIS: * Increased kcal/prot needs R/T wound healing as evidenced by BL buttocks and sacral wound photos, refer to eval. * Swallowing difficulty R/T respiratory status as evidenced by pt on T-collar, s/p G-J conversion CURRENT TF:Glucerna 1.5 @ 50ml/hr x 24 hrs ENTERAL NUTRITION RECOMMENDATIONS: Glucerna 1.5 @ 50ml/hr x 24 hrs to provide 1200ml, 1800 kcal, 99g pro, 911ml free H2O - Maintain at current rate as tolerated to meet 100% est needs - HOB over 30 degrees - INCREASE water flush of 170ml q 6 hrs ADDITIONAL RECOMMENDATIONS: 1) RE-calibrate bedscale wt: fluctuating daily wts (108#-136# last 6 days) 2) Wound healing: Add Cristian 1pkt BID w/ continued good TF tolerance. 3) Increase water flushes, monitor for signs of water deficits 4) Monitor BGs closely, need for NISS -> now w/ improved BGs 5) Monitor for continued good TF tolerance 6) Monitor K : elev K on 03/25, s/p Kdur BID, now dc'ed. (4) Chronic vegetative state Assessment & Plan: incontinence of urine and stool. can soil dressings. nurses doing great job with monitoring and changing prn (5) Leukocytosis Walter Madera Apr 24, 2019 10:42
--- NOTE | 2019-04-24 10:49 | NUR ---
NURSE NOTES: Gave oral care and did oral suctioning to patient. Patient tolerated well, O2 Saturation at 95%. Will continue to monitor.
--- NOTE | 2019-04-24 10:53 | NUR ---
RD ASSESSMENT & RECOMMENDATIONS SEE CARE ACTIVITY FOR COMPLETE ASSESSMENT DAILY ESTIMATED NEEDS: Needs based on Pulmonary, wounds, bedbound/ 61kg adj 25-30 kcals/kg 3644-5574 total kcals 1.25-2 g protein/kg 76-122 g total protein 25-30 mL/kg 3657-1004 total fluid mLs NUTRITION DIAGNOSIS: * Increased kcal/prot needs R/T wound healing as evidenced by BL buttocks and sacral wound photos, refer to WC eval-> wounds resolving, sacrum healed. * Swallowing difficulty R/T respiratory status as evidenced by pt on T-collar, s/p G-J conversion CURRENT TF:Vital AF 1.2 @ 60ml/hr x 24 hrs ENTERAL NUTRITION RECOMMENDATIONS: VITAL AF 1.2 @ 60ml/hr x 24 hrs to provide 1440ml, 1728kcal, 108g prot, 1167ml free water - Maintain current TF -> meets 100% est needs - HOB over 30 degrees - increase water flushes (BUN elevated) ADDITIONAL RECOMMENDATIONS: 1) RE-calibrate bedscale wt: fluctuating daily wts 2) Wound healing: maintain Cristian BID for skin integrity 3) Monitor BGs closely, need for NISS -> now w/ improved BGs 4) Monitor for continued good TF tolerance 5) BUN trending up -> rec to increase water flushes . .
--- NOTE | 2019-04-24 10:57 | Infectious Diseases Prog Note ---
"Assessment/Plan Assessment/Plan antibiotics : none A 1. klebsiella | providencia pneumonia s/p rx 2. respiratory failure 3. hypertension 4. CVA 5. dementia 6. sacral decubitus ulcer 7. rectal VRE colonization P 1. observe off antibiotics 2. dc planned Subjective ROS Limited/Unobtainable: Yes Allergies: Coded Allergies: CODEINE (Verified Allergy, Unknown, HIVES, 09/15/09) Objective Vital Signs Last 24 Hour Vital Signs Date Time Temp Pulse Resp B/P (MAP) Pulse Ox O2 Delivery O2 Flow Rate FiO2 04/24/19 10:00 90 30 121/34 (63) 93 04/24/19 09:00 78 22 113/29 (57) 99 04/24/19 08:00 98.2 84 21 106/45 (65) 99 04/24/19 08:00 T-piece 5.0 T-piece 5.0 04/24/19 08:00 5.0 28 04/24/19 07:03 84 04/24/19 07:03 83 23 100 T-Piece 6.0 28 89 21 100 04/24/19 07:00 81 21 146/41 (76) 100 04/24/19 06:53 100 T-Piece 6.0 28 04/24/19 06:53 89 21 100 T-Piece 6.0 28 04/24/19 06:00 87 25 96/47 (63) 98 04/24/19 06:00 87 04/24/19 05:00 86 27 121/51 (74) 98 04/24/19 04:00 98.5 86 25 131/52 (78) 99 04/24/19 04:00 T-piece 5.0 T-piece 5.0 04/24/19 04:00 87 04/24/19 04:00 5.0 28 04/24/19 03:05 85 26 100 T-Piece 6.0 28 83 26 100 04/24/19 03:00 84 26 99/34 (55) 97 04/24/19 02:00 88 30 94/38 (56) 95 04/24/19 01:10 99 T-Piece 6.0 28 04/24/19 01:00 89 29 90/33 (52) 98 04/24/19 00:00 98.0 82 26 96/42 (60) 99 04/24/19 00:00 87 04/24/19 00:00 T-piece 5.0 T-piece 5.0 04/24/19 00:00 98.0 04/24/19 00:00 5.0 28 04/23/19 23:52 89 26 100 T-Piece 6.0 28 86 28 99 04/23/19 23:00 86 28 99/42 (61) 98 04/23/19 22:00 88 28 93/42 (59) 97 04/23/19 21:00 87 23 111/38 (62) 98 04/23/19 20:19 97 T-Piece 6.0 28 04/23/19 20:18 88 25 100 T-Piece 6.0 28 87 27 97 04/23/19 20:00 5.0 28 04/23/19 20:00 T-piece 5.0 T-piece 5.0 04/23/19 20:00 88 04/23/19 20:00 98.4 89 22 109/44 (65) 97 04/23/19 19:00 94 28 130/40 (70) 99 04/23/19 18:00 88 120/32 (61) 98 04/23/19 17:00 86 26 113/25 (54) 99 04/23/19 16:00 T-piece 5.0 T-piece 5.0 04/23/19 16:00 83 04/23/19 16:00 98.8 83 26 115/34 (61) 98 04/23/19 16:00 5.0 28 04/23/19 15:00 86 26 106/26 (52) 100 04/23/19 14:00 88 23 116/24 (54) 100 04/23/19 13:29 100 T-Piece 6.0 28 04/23/19 13:00 88 23 112/28 (56) 100 04/23/19 12:00 5.0 28 04/23/19 12:00 86 04/23/19 12:00 99.2 86 24 106/29 (54) 100 04/23/19 12:00 T-piece 5.0 T-piece 5.0 04/23/19 11:30 85 24 100 T-Piece 6.0 28 84 26 100 04/23/19 11:00 86 24 118/28 (58) 100 Height (Feet): 5 Height (Inches): 3.00 Weight (Pounds): 120 HEENT: status post trach Respiratory/Chest: lungs clear Cardiovascular: normal rate, regular rhythm, no gallop/murmur Abdomen: soft, non tender, other - GT Extremities: no edema, other - right arm PICC Laboratory Tests Test 04/24/19 05:00 White Blood Count 9.3 K/UL (4.8-10.8) Red Blood Count 3.26 M/UL (4.20-5.40) L Hemoglobin 9.6 G/DL (12.0-16.0) L Hematocrit 29.1 % (37.0-47.0) L Mean Corpuscular Volume 89 FL (80-99) Mean Corpuscular Hemoglobin 29.6 PG (27.0-31.0) Mean Corpuscular Hemoglobin Concent 33.2 G/DL (32.0-36.0) Red Cell Distribution Width 14.9 % (11.6-14.8) H Platelet Count 193 K/UL (150-450) Mean Platelet Volume 5.6 FL (6.5-10.1) L Neutrophils (%) (Auto) 68.8 % (45.0-75.0) Lymphocytes (%) (Auto) 22.9 % (20.0-45.0) Monocytes (%) (Auto) 5.4 % (1.0-10.0) Eosinophils (%) (Auto) 2.6 % (0.0-3.0) Basophils (%) (Auto) 0.3 % (0.0-2.0) Sodium Level 141 MMOL/L (136-145) Potassium Level 4.4 MMOL/L (3.5-5.1) Chloride Level 106 MMOL/L (98-107) Carbon Dioxide Level 26 MMOL/L (21-32) Anion Gap 9 mmol/L (5-15) Blood Urea Nitrogen 65 mg/dL (7-18) H Creatinine 1.1 MG/DL (0.55-1.30) Estimat Glomerular Filtration Rate mL/min (>60) Glucose Level 121 MG/DL (74-106) H Calcium Level 8.7 MG/DL (8.5-10.1) Phosphorus Level 3.8 MG/DL (2.5-4.9) Magnesium Level 2.3 MG/DL (1.8-2.4) Total Bilirubin 0.3 MG/DL (0.2-1.0) Aspartate Amino Transf (AST/SGOT) 76 U/L (15-37) H Alanine Aminotransferase (ALT/SGPT) 143 U/L (12-78) H Alkaline Phosphatase 178 U/L (46-116) H Troponin I 0.000 ng/mL (0.000-0.056) C-Reactive Protein, Quantitative 4.4 mg/dL (0.00-0.90) H Pro-B-Type Natriuretic Peptide Pending Total Protein 8.3 G/DL (6.4-8.2) H Albumin 3.0 G/DL (3.4-5.0) L Globulin 5.3 g/dL Albumin/Globulin Ratio 0.6 (1.0-2.7) L Current Medications Medications (Trade) Dose Ordered Sig/Maicol Route PRN Reason Start Time Stop Time Status Last Admin Dose Admin Albuterol/ Ipratropium (Albuterol/ Ipratropium) 3 ml Q4HRT HHN 04/20/19 11:00 04/25/19 10:59 04/24/19 06:56 Atropine Sulfate (Atropine Opth Adriana) 1 drop THREE TIMES A DAY SL 04/08/19 09:00 05/07/19 20:59 04/24/19 09:05 Chlorhexidine Gluconate (Cesilia-Hex 2%) 1 applic DAILY@2000 TOPIC 04/12/19 20:00 05/12/19 19:59 04/23/19 20:46 Folic Acid (Folate) 1 mg DAILY GT 04/08/19 09:00 05/08/19 08:59 04/24/19 09:04 Heparin Sodium (Porcine) (Heparin 5000 units/ml) 5,000 units EVERY 12 HOURS SUBQ 04/01/19 10:00 05/01/19 09:59 04/24/19 09:08 Hydralazine HCl (Apresoline) 25 mg Q6H PRN ORAL SBP above 150 04/06/19 02:45 05/06/19 02:44 04/06/19 11:15 Lansoprazole (Prevacid) 30 mg Q12HR GT 03/29/19 09:00 04/24/19 20:59 04/24/19 09:05 Levetiracetam (Keppra) 750 mg Q12HR GT 04/07/19 21:00 05/07/19 20:59 04/24/19 09:04 Sorbitol (Sorbitol) 30 ml BIDPRN PRN ORAL Constipation 04/13/19 11:15 05/13/19 11:14 Sorbitol (sorbitoL) 30 ml DAILY GT 04/14/19 09:00 05/14/19 08:59 04/24/19 09:05 Geovany Yang MD Apr 24, 2019 10:57"
--- NOTE | 2019-04-24 13:37 | NUR ---
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 98.4 HR 88 RR 30 B/P 132/42 T-BAR FIO2 28% BUN 65 AST 76 ALT 143 ALK PHOS 178 IS: ALB HHN HEPARIN SUBC PLACEMENT PENDING ICU STATUS
--- NOTE | 2019-04-24 14:00 | NUR ---
NURSE NOTES: Turned and repositioned patient, oral care, and oral suctioning done on patient. Patient is resting comfortably, no signs of acute distress. Will continue to monitor.
--- NOTE | 2019-04-24 17:08 | General Progress Note ---
Assessment/Plan Problem List: (1) Seizure ICD Codes: R56.9 - Unspecified convulsions SNOMED: 43978278 (2) Anemia ICD Codes: D64.9 - Anemia, unspecified SNOMED: 136078098 Qualifiers: Qualified Codes: D64.9 - Anemia, unspecified (3) Sepsis ICD Codes: A41.9 - Sepsis, unspecified organism SNOMED: 35022964, 320947328 Qualifiers: Qualified Codes: A41.9 - Sepsis, unspecified organism (4) Respiratory failure with hypoxia ICD Codes: J96.91 - Respiratory failure, unspecified with hypoxia SNOMED: 13225136634619149 Qualifiers: Qualified Codes: J96.21 - Acute and chronic respiratory failure with hypoxia (5) HCAP (healthcare-associated pneumonia) ICD Codes: J18.9 - Pneumonia, unspecified organism SNOMED: 086420733, 923328597 (6) Sacral decubitus ulcer ICD Codes: L89.159 - Pressure ulcer of sacral region, unspecified stage SNOMED: 074244931 (7) HTN (hypertension) ICD Codes: I10 - Essential (primary) hypertension SNOMED: 35714724 (8) Chronic vegetative state ICD Codes: R40.3 - Persistent vegetative state SNOMED: 09119338 (9) Chronic respiratory failure ICD Codes: J96.10 - Chronic respiratory failure, unspecified whether with hypoxia or hypercapnia SNOMED: 28945826 (10) Limited mobility ICD Codes: Z74.09 - Other reduced mobility SNOMED: 1222712 Status: stable, progressing Assessment/Plan: vent as needed resp rx suctioning j tube feeds g port to gravity skin care sz rx check labs/monitor Na level bowel regime dc planning Subjective ROS Limited/Unobtainable: No Constitutional: Reports: malaise, weakness HEENT: Reports: no symptoms Cardiovascular: Reports: no symptoms Respiratory: Reports: cough, shortness of breath, sputum Gastrointestinal/Abdominal: Reports: difficulty swallowing Genitourinary: Reports: no symptoms Neurologic/Psychiatric: Reports: pre-existing deficit, seizure Endocrine: Reports: no symptoms Hematologic/Lymphatic: Reports: no symptoms Allergies: Coded Allergies: CODEINE (Verified Allergy, Unknown, HIVES, 09/15/09) All Systems: reviewed and negative except above Subjective no events. no reports of bleeding. tolerating feeds, no vomiting. minimal secretions. no szs Objective Last 24 Hour Vital Signs Date Time Temp Pulse Resp B/P (MAP) Pulse Ox O2 Delivery O2 Flow Rate FiO2 04/24/19 16:00 5.0 28 04/24/19 16:00 T-piece 5.0 T-piece 5.0 04/24/19 16:00 98.7 89 29 133/29 (63) 98 04/24/19 15:32 88 04/24/19 15:00 87 24 127/30 (62) 98 04/24/19 14:30 86 24 100 T-Piece 6.0 28 87 28 97 04/24/19 14:00 85 26 127/32 (63) 98 04/24/19 13:00 82 24 111/35 (60) 100 04/24/19 12:46 100 T-Piece 6.0 28 04/24/19 12:01 86 04/24/19 12:00 T-piece 5.0 T-piece 5.0 04/24/19 12:00 5.0 28 04/24/19 12:00 98.4 88 24 132/42 (72) 98 04/24/19 11:17 86 23 100 T-Piece 6.0 28 90 28 96 04/24/19 11:00 88 23 106/43 (64) 96 04/24/19 10:00 90 30 121/34 (63) 93 04/24/19 09:00 78 22 113/29 (57) 99 04/24/19 08:00 98.2 84 21 106/45 (65) 99 04/24/19 08:00 T-piece 5.0 T-piece 5.0 04/24/19 08:00 5.0 28 04/24/19 07:03 84 04/24/19 07:03 83 23 100 T-Piece 6.0 28 89 21 100 04/24/19 07:00 81 21 146/41 (76) 100 04/24/19 06:53 100 T-Piece 6.0 28 04/24/19 06:53 89 21 100 T-Piece 6.0 28 04/24/19 06:00 87 25 96/47 (63) 98 04/24/19 06:00 87 04/24/19 05:00 86 27 121/51 (74) 98 04/24/19 04:00 98.5 86 25 131/52 (78) 99 04/24/19 04:00 T-piece 5.0 T-piece 5.0 04/24/19 04:00 87 04/24/19 04:00 5.0 28 04/24/19 03:05 85 26 100 T-Piece 6.0 28 83 26 100 04/24/19 03:00 84 26 99/34 (55) 97 04/24/19 02:00 88 30 94/38 (56) 95 04/24/19 01:10 99 T-Piece 6.0 28 04/24/19 01:00 89 29 90/33 (52) 98 04/24/19 00:00 98.0 82 26 96/42 (60) 99 04/24/19 00:00 87 04/24/19 00:00 T-piece 5.0 T-piece 5.0 04/24/19 00:00 98.0 04/24/19 00:00 5.0 28 04/23/19 23:52 89 26 100 T-Piece 6.0 28 86 28 99 04/23/19 23:00 86 28 99/42 (61) 98 04/23/19 22:00 88 28 93/42 (59) 97 04/23/19 21:00 87 23 111/38 (62) 98 04/23/19 20:19 97 T-Piece 6.0 28 04/23/19 20:18 88 25 100 T-Piece 6.0 28 87 27 97 04/23/19 20:00 5.0 28 04/23/19 20:00 T-piece 5.0 T-piece 5.0 04/23/19 20:00 88 04/23/19 20:00 98.4 89 22 109/44 (65) 97 04/23/19 19:00 94 28 130/40 (70) 99 04/23/19 18:00 88 120/32 (61) 98 Intake and Output 04/23/19 04/24/19 19:00 07:00 Intake Total 1420 ml 1320 ml Output Total 955 ml 1550 ml Balance 465 ml -230 ml Free Water 400 ml 300 ml Tube Feeding 720 ml 720 ml Other 300 ml 300 ml Output Urine Total 440 ml 850 ml Gastric Drainage Total 515 ml 700 ml # Bowel Movements 1 1 Laboratory Tests 04/24/19 05:00: White Blood Count 9.3, Red Blood Count 3.26L, Hemoglobin 9.6L, Hematocrit 29.1L , Mean Corpuscular Volume 89, Mean Corpuscular Hemoglobin 29.6, Mean Corpuscular Hemoglobin Concent 33.2, Red Cell Distribution Width 14.9H, Platelet Count 193, Mean Platelet Volume 5.6L, Neutrophils (%) (Auto) 68.8, Lymphocytes (%) (Auto) 22.9, Monocytes (%) (Auto) 5.4, Eosinophils (%) (Auto) 2.6, Basophils (%) (Auto) 0.3, Sodium Level 141, Potassium Level 4.4, Chloride Level 106, Carbon Dioxide Level 26, Anion Gap 9, Blood Urea Nitrogen 65H, Creatinine 1.1, Estimat Glomerular Filtration Rate , Glucose Level 121H, Calcium Level 8.7, Phosphorus Level 3.8, Magnesium Level 2.3, Total Bilirubin 0.3, Aspartate Amino Transf (AST/SGOT) 76H, Alanine Aminotransferase (ALT/SGPT) 143H, Alkaline Phosphatase 178H, Troponin I 0.000, C-Reactive Protein, Quantitative 4.4H, Pro-B-Type Natriuretic Peptide 55, Total Protein 8.3H, Albumin 3.0L, Globulin 5.3, Albumin/Globulin Ratio 0.6L Height (Feet): 5 Height (Inches): 3.00 Weight (Pounds): 120 Objective General Appearance: WD/WN, confused. on trach collar Neck: supple Cardiovascular: normal rate, regular rhythm Respiratory/Chest: chest wall non-tender, rhonchi - bilaterally(minimal) Abdomen: normal bowel sounds, non tender, soft, no organomegaly Edema: no edema noted Arm (L), no edema noted Arm (R), no edema noted Leg (L), no edema noted Leg (R), no edema noted Pedal (L), no edema noted Pedal (R), no edema noted Generalized Neurologic: disoriented, unresponsive, aphasia Irvin Beltrán MD Apr 24, 2019 17:08
--- NOTE | 2019-04-24 17:12 | NUR ---
NURSE NOTES: Gave bed bath and oral care to patient, patient tolerated well, no signs of distress. Will continue to monitor.
--- NOTE | 2019-04-24 17:48 | Pulmonology Progress Note ---
Assessment/Plan Assessment/Plan Impression: history of Sepsis history of Pneumonia Trach, G tube, Hypertension, Cardiac disease, Dementia, Previous CVA, Seizure disorder, Respiratory failure with hypoxia Anemia, Sacral ulcer renal cyst chronic pulmonary congestion Plan no significant change in management oxygen as needed needs suctioning monitor protein levels monitor for bleeding elevate head and monitor secretions DNR. No CPR. ICU care reviewed meds noted off load as able nutrition skin care difficulty with placement monitor residual and reflux aspiration all changes noted and discussed chronic management reviewed medications/laboratory data/nursing notes/ICU care reviewed in detail note reviewed and edited care discussed with RN and RT Subjective ROS Limited/Unobtainable: Yes Allergies: Coded Allergies: CODEINE (Verified Allergy, Unknown, HIVES, 09/15/09) Subjective overnight events noted; respiratory status and RT care reviewed head elevated ICU care issues discussed bed bound and obtunded discussed with primary Objective Last 24 Hour Vital Signs Date Time Temp Pulse Resp B/P (MAP) Pulse Ox O2 Delivery O2 Flow Rate FiO2 04/24/19 17:00 86 22 141/40 (73) 99 04/24/19 16:00 5.0 28 04/24/19 16:00 T-piece 5.0 T-piece 5.0 04/24/19 16:00 98.7 89 29 133/29 (63) 98 04/24/19 15:32 88 04/24/19 15:00 87 24 127/30 (62) 98 04/24/19 14:30 86 24 100 T-Piece 6.0 28 87 28 97 04/24/19 14:00 85 26 127/32 (63) 98 04/24/19 13:00 82 24 111/35 (60) 100 04/24/19 12:46 100 T-Piece 6.0 28 04/24/19 12:01 86 04/24/19 12:00 T-piece 5.0 T-piece 5.0 04/24/19 12:00 5.0 28 04/24/19 12:00 98.4 88 24 132/42 (72) 98 04/24/19 11:17 86 23 100 T-Piece 6.0 28 90 28 96 04/24/19 11:00 88 23 106/43 (64) 96 04/24/19 10:00 90 30 121/34 (63) 93 04/24/19 09:00 78 22 113/29 (57) 99 04/24/19 08:00 98.2 84 21 106/45 (65) 99 04/24/19 08:00 T-piece 5.0 T-piece 5.0 04/24/19 08:00 5.0 28 04/24/19 07:03 84 04/24/19 07:03 83 23 100 T-Piece 6.0 28 89 21 100 04/24/19 07:00 81 21 146/41 (76) 100 04/24/19 06:53 100 T-Piece 6.0 28 04/24/19 06:53 89 21 100 T-Piece 6.0 28 04/24/19 06:00 87 25 96/47 (63) 98 04/24/19 06:00 87 04/24/19 05:00 86 27 121/51 (74) 98 04/24/19 04:00 98.5 86 25 131/52 (78) 99 04/24/19 04:00 T-piece 5.0 T-piece 5.0 04/24/19 04:00 87 04/24/19 04:00 5.0 28 04/24/19 03:05 85 26 100 T-Piece 6.0 28 83 26 100 04/24/19 03:00 84 26 99/34 (55) 97 04/24/19 02:00 88 30 94/38 (56) 95 04/24/19 01:10 99 T-Piece 6.0 28 04/24/19 01:00 89 29 90/33 (52) 98 04/24/19 00:00 98.0 82 26 96/42 (60) 99 04/24/19 00:00 87 04/24/19 00:00 T-piece 5.0 T-piece 5.0 04/24/19 00:00 98.0 04/24/19 00:00 5.0 28 04/23/19 23:52 89 26 100 T-Piece 6.0 28 86 28 99 04/23/19 23:00 86 28 99/42 (61) 98 04/23/19 22:00 88 28 93/42 (59) 97 04/23/19 21:00 87 23 111/38 (62) 98 04/23/19 20:19 97 T-Piece 6.0 28 04/23/19 20:18 88 25 100 T-Piece 6.0 28 87 27 97 04/23/19 20:00 5.0 28 04/23/19 20:00 T-piece 5.0 T-piece 5.0 04/23/19 20:00 88 04/23/19 20:00 98.4 89 22 109/44 (65) 97 04/23/19 19:00 94 28 130/40 (70) 99 04/23/19 18:00 88 120/32 (61) 98 Intake and Output 04/23/19 04/24/19 19:00 07:00 Intake Total 1420 ml 1320 ml Output Total 955 ml 1550 ml Balance 465 ml -230 ml Free Water 400 ml 300 ml Tube Feeding 720 ml 720 ml Other 300 ml 300 ml Output Urine Total 440 ml 850 ml Gastric Drainage Total 515 ml 700 ml # Bowel Movements 1 1 Objective WDWN NAD contracted off vent reduced breath sounds bilaterally without rhonchi or wheeze [id number] without MRG NABS nontender no HSM no CC trace edema same nonfocal nonverbal trach and gt reviewed and edited Laboratory Tests 04/24/19 05:00: White Blood Count 9.3, Red Blood Count 3.26L, Hemoglobin 9.6L, Hematocrit 29.1L , Mean Corpuscular Volume 89, Mean Corpuscular Hemoglobin 29.6, Mean Corpuscular Hemoglobin Concent 33.2, Red Cell Distribution Width 14.9H, Platelet Count 193, Mean Platelet Volume 5.6L, Neutrophils (%) (Auto) 68.8, Lymphocytes (%) (Auto) 22.9, Monocytes (%) (Auto) 5.4, Eosinophils (%) (Auto) 2.6, Basophils (%) (Auto) 0.3, Sodium Level 141, Potassium Level 4.4, Chloride Level 106, Carbon Dioxide Level 26, Anion Gap 9, Blood Urea Nitrogen 65H, Creatinine 1.1, Estimat Glomerular Filtration Rate , Glucose Level 121H, Calcium Level 8.7, Phosphorus Level 3.8, Magnesium Level 2.3, Total Bilirubin 0.3, Aspartate Amino Transf (AST/SGOT) 76H, Alanine Aminotransferase (ALT/SGPT) 143H, Alkaline Phosphatase 178H, Troponin I 0.000, C-Reactive Protein, Quantitative 4.4H, Pro-B-Type Natriuretic Peptide 55, Total Protein 8.3H, Albumin 3.0L, Globulin 5.3, Albumin/Globulin Ratio 0.6L Current Medications Medications (Trade) Dose Ordered Sig/Maicol Route PRN Reason Start Time Stop Time Status Last Admin Dose Admin Albuterol/ Ipratropium (Albuterol/ Ipratropium) 3 ml Q4HRT HHN 04/20/19 11:00 04/25/19 10:59 04/24/19 14:20 Atropine Sulfate (Atropine Opth Adriana) 1 drop THREE TIMES A DAY SL 04/08/19 09:00 05/07/19 20:59 04/24/19 14:17 Chlorhexidine Gluconate (Cesilia-Hex 2%) 1 applic DAILY@1999 TOPIC 04/12/19 20:00 05/12/19 19:59 04/23/19 20:46 Folic Acid (Folate) 1 mg DAILY GT 04/08/19 09:00 05/08/19 08:59 04/24/19 09:04 Heparin Sodium (Porcine) (Heparin 5000 units/ml) 5,000 units EVERY 12 HOURS SUBQ 04/01/19 10:00 05/01/19 09:59 04/24/19 09:08 Hydralazine HCl (Apresoline) 25 mg Q6H PRN ORAL SBP above 150 04/06/19 02:45 05/06/19 02:44 04/06/19 11:15 Lansoprazole (Prevacid) 30 mg Q12HR GT 03/29/19 09:00 04/24/19 20:59 04/24/19 09:05 Levetiracetam (Keppra) 750 mg Q12HR GT 04/07/19 21:00 05/07/19 20:59 04/24/19 09:04 Sorbitol (Sorbitol) 30 ml BIDPRN PRN ORAL Constipation 04/13/19 11:15 05/13/19 11:14 Sorbitol (sorbitoL) 30 ml DAILY GT 04/14/19 09:00 05/14/19 08:59 04/24/19 09:05 Amaury Chan MD Apr 24, 2019 17:48
--- NOTE | 2019-04-24 19:09 | NUR ---
HAND-OFF: Report given to Patti PAEZ.
--- NOTE | 2019-04-24 19:24 | General Progress Note ---
Assessment/Plan Status: stable, progressing Assessment/Plan: Assessment - N/V - resolved with G --> J conversion - constipation - partly due to low residue formula used, good response to sorbitol - Elevated Alk phos / LFT - CT negative - abd U/S negative - check hepatitis serologies - negative - possibly MURRAY / Fatty liver - will periodically monitor - Anemia with OB (-) stools - Resp failure, s/p Trach - dysphagia, s/p PEG --> GJ tube - OBS, vegetative obtunded unresponsive state, bedbound with contracted extremities, - h/o minor GJ tube site irritation - elevated BUN/Cr - poor Prognosis Recommendations - daily sorbitol, and PRN sorbitol - Follow BUN/Cr - Cristian BID - antibiotic ointment to GJT site PRN - aspiration precautions - elevate HOB - Vital AF 1.2 - check q 6 hour FS - transfuse to keep Hg > 7 - J tube feeds - G tube drain Subjective Allergies: Coded Allergies: CODEINE (Verified Allergy, Unknown, HIVES, 09/15/09) Subjective above noted tolerating TF via J port d/w RN (+) BM Objective Last 24 Hour Vital Signs Date Time Temp Pulse Resp B/P (MAP) Pulse Ox O2 Delivery O2 Flow Rate FiO2 04/24/19 19:00 84 23 123/34 (63) 98 04/24/19 18:49 85 27 100 T-Piece 6.0 28 83 30 97 04/24/19 18:49 100 T-Piece 6.0 28 04/24/19 18:00 82 24 123/35 (64) 98 04/24/19 17:00 86 22 141/40 (73) 99 04/24/19 16:00 5.0 28 04/24/19 16:00 T-piece 5.0 T-piece 5.0 04/24/19 16:00 98.7 89 29 133/29 (63) 98 04/24/19 15:32 88 04/24/19 15:00 87 24 127/30 (62) 98 04/24/19 14:30 86 24 100 T-Piece 6.0 28 87 28 97 04/24/19 14:00 85 26 127/32 (63) 98 04/24/19 13:00 82 24 111/35 (60) 100 04/24/19 12:46 100 T-Piece 6.0 28 04/24/19 12:01 86 04/24/19 12:00 T-piece 5.0 T-piece 5.0 04/24/19 12:00 5.0 28 04/24/19 12:00 98.4 88 24 132/42 (72) 98 04/24/19 11:17 86 23 100 T-Piece 6.0 28 90 28 96 04/24/19 11:00 88 23 106/43 (64) 96 04/24/19 10:00 90 30 121/34 (63) 93 04/24/19 09:00 78 22 113/29 (57) 99 04/24/19 08:00 98.2 84 21 106/45 (65) 99 04/24/19 08:00 T-piece 5.0 T-piece 5.0 04/24/19 08:00 5.0 28 04/24/19 07:03 84 04/24/19 07:03 83 23 100 T-Piece 6.0 28 89 21 100 04/24/19 07:00 81 21 146/41 (76) 100 04/24/19 06:53 100 T-Piece 6.0 28 04/24/19 06:53 89 21 100 T-Piece 6.0 28 04/24/19 06:00 87 25 96/47 (63) 98 04/24/19 06:00 87 04/24/19 05:00 86 27 121/51 (74) 98 04/24/19 04:00 98.5 86 25 131/52 (78) 99 04/24/19 04:00 T-piece 5.0 T-piece 5.0 04/24/19 04:00 87 04/24/19 04:00 5.0 28 04/24/19 03:05 85 26 100 T-Piece 6.0 28 83 26 100 04/24/19 03:00 84 26 99/34 (55) 97 04/24/19 02:00 88 30 94/38 (56) 95 04/24/19 01:10 99 T-Piece 6.0 28 04/24/19 01:00 89 29 90/33 (52) 98 04/24/19 00:00 98.0 82 26 96/42 (60) 99 04/24/19 00:00 87 04/24/19 00:00 T-piece 5.0 T-piece 5.0 1/24/20 00:00 98.0 04/24/19 00:00 5.0 28 04/23/19 23:52 89 26 100 T-Piece 6.0 28 86 28 99 04/23/19 23:00 86 28 99/42 (61) 98 04/23/19 22:00 88 28 93/42 (59) 97 04/23/19 21:00 87 23 111/38 (62) 98 04/23/19 20:19 97 T-Piece 6.0 28 04/23/19 20:18 88 25 100 T-Piece 6.0 28 87 27 97 04/23/19 20:00 5.0 28 04/23/19 20:00 T-piece 5.0 T-piece 5.0 04/23/19 20:00 88 04/23/19 20:00 98.4 89 22 109/44 (65) 97 Intake and Output 04/23/19 04/24/19 19:00 07:00 Intake Total 1420 ml 1320 ml Output Total 955 ml 1550 ml Balance 465 ml -230 ml Free Water 400 ml 300 ml Tube Feeding 720 ml 720 ml Other 300 ml 300 ml Output Urine Total 440 ml 850 ml Gastric Drainage Total 515 ml 700 ml # Bowel Movements 1 1 Laboratory Tests 04/24/19 05:00: White Blood Count 9.3, Red Blood Count 3.26L, Hemoglobin 9.6L, Hematocrit 29.1L , Mean Corpuscular Volume 89, Mean Corpuscular Hemoglobin 29.6, Mean Corpuscular Hemoglobin Concent 33.2, Red Cell Distribution Width 14.9H, Platelet Count 193, Mean Platelet Volume 5.6L, Neutrophils (%) (Auto) 68.8, Lymphocytes (%) (Auto) 22.9, Monocytes (%) (Auto) 5.4, Eosinophils (%) (Auto) 2.6, Basophils (%) (Auto) 0.3, Sodium Level 141, Potassium Level 4.4, Chloride Level 106, Carbon Dioxide Level 26, Anion Gap 9, Blood Urea Nitrogen 65H, Creatinine 1.1, Estimat Glomerular Filtration Rate , Glucose Level 121H, Calcium Level 8.7, Phosphorus Level 3.8, Magnesium Level 2.3, Total Bilirubin 0.3, Aspartate Amino Transf (AST/SGOT) 76H, Alanine Aminotransferase (ALT/SGPT) 143H, Alkaline Phosphatase 178H, Troponin I 0.000, C-Reactive Protein, Quantitative 4.4H, Pro-B-Type Natriuretic Peptide 55, Total Protein 8.3H, Albumin 3.0L, Globulin 5.3, Albumin/Globulin Ratio 0.6L Height (Feet): 5 Height (Inches): 3.00 Weight (Pounds): 120 Objective Debilitated AA woman non-verbal, obtunded NCAT (+) trach coarse BS RR obese abd, (+) GJT no edema (+) contractured extremities Celio Vaughan MD Apr 24, 2019 19:24
--- NOTE | 2019-04-24 19:35 | NUR ---
NURSE NOTES: received report from moses rn pt trach - t-piece 28 o/o 02 sat 96 0/0 no acute resp distress note reposition and suction tolerating tube feeding good urinary output
[2019-04-24] MEDS: Dyna-Hex 2% Top Sol 2oz TOPIC SCH (20:41)
--- NOTE | 2019-04-24 22:00 | NUR ---
NURSE NOTES: reposition and suction family at bedside visiting
[2019-04-25] VITALS (24 sets, daily range): BP systolic 86–127; BP diastolic 34–69
--- NOTE | 2019-04-25 | NUR ---
NURSE NOTES: asleep reposition and suction bs 112 no coverage
--- NOTE | 2019-04-25 02:00 | Progress Note ---
DATE: 04/24/2019 CARDIOLOGY PROGRESS NOTE SUBJECTIVE: No new events. Minimal secretions on T-tube. Tolerating J-tube feeds. Monitored sinus. OBJECTIVE: VITAL SIGNS: Blood pressure 133/29, pulse 89, respiratory rate 29, and afebrile. LUNGS: Bilateral breath sounds and rhonchi. Thin secretions. CARDIAC: Regular rhythm and rate. Normal S1 and S2. No new murmur. ABDOMEN: Soft. EXTREMITIES: Trace edema. LABORATORY DATA: White count 9.3 and hemoglobin 9.6. Potassium 4.4, BUN 65, creatinine 1.1, and magnesium 2.3. Troponin negative. IMPRESSION: 1. Respiratory failure. 2. Recovered sepsis with shock. 3. Transaminitis. 4. Mild protein-calorie malnutrition. 5. Prerenal azotemia. 6. Increased pulse pressure. 7. Advanced dementia. PLAN: 1. Maintain current regimen. 2. No additional cardiovascular interventions anticipated. 3. Conservative management unless clinical condition warrants change in therapy. Bg Hagen M.D. DR: PIYUSH JOB#: [id number] CC:
--- NOTE | 2019-04-25 02:00 | NUR ---
NURSE NOTES: [id number] and suction asleep at interval
[2019-04-25] MEDS: Albuterol/Ipratropium 3ml neb HHN SCH ×5 (03:34→22:50)
--- NOTE | 2019-04-25 04:00 | NUR ---
NURSE NOTES: complete bed bath oral and back care done
--- NOTE | 2019-04-25 06:00 | NUR ---
NURSE NOTES: bs 110
--- NOTE | 2019-04-25 07:00 | NUR ---
HAND-OFF: Report given to moses using s bar
--- NOTE | 2019-04-25 07:01 | NUR ---
NURSE NOTES: Received patient from Patti PAEZ, patient is obtunded, receiving oxygen via T-piece, FiO2 28%. Sinus Rhythm on the monitor, HR 82. G-tube/J-tube is intact and G-tube is receiving Vital AF at 60cc/hr, J-tube is draining by gravity. IV site is Right Upper Arm PICC, intact and patent. Purewick is intact and draining. bed is locked, placed in lowest position, side rails up x3, bed alarm on, head of bed elevated, call light within reach. Will continue to monitor. Addendum: 04/25/19 at 0939 by Jovanni Valdes RN NURSE NOTES: Received patient from Patti PAEZ, patient is obtunded, receiving oxygen via T-piece, FiO2 28% 5L/min. Sinus Rhythm on the monitor, HR 82. G-tube/J-tube is intact and J-tube is receiving Vital AF at 60cc/hr, G-tube is draining by gravity. IV site is Right Upper Arm PICC, intact and patent. Purewick is intact and draining. bed is locked, placed in lowest position, side rails up x3, bed alarm on, head of bed elevated, call light within reach. Will continue to monitor.
--- NOTE | 2019-04-25 08:11 | General Progress Note ---
Assessment/Plan Status: stable, progressing Assessment/Plan: Assessment/Plan Status: stable, progressing Assessment/Plan: Assessment - N/V - resolved with G --> J conversion - constipation - partly due to low residue formula used, good response to sorbitol - Elevated Alk phos / LFT - CT negative - abd U/S negative - check hepatitis serologies - negative - possibly MURRAY / Fatty liver - will periodically monitor - Anemia with OB (-) stools - Resp failure, s/p Trach - dysphagia, s/p PEG --> GJ tube - OBS, vegetative obtunded unresponsive state, bedbound with contracted extremities, - h/o minor GJ tube site irritation - elevated BUN/Cr - poor Prognosis Recommendations - daily sorbitol, and PRN sorbitol - Follow BUN/Cr - Cristian BID - antibiotic ointment to GJT site PRN - aspiration precautions - elevate HOB - Vital AF 1.2 - check q 6 hour FS - transfuse to keep Hg > 7 - J tube feeds - G tube drain Subjective ROS Limited/Unobtainable: No Allergies: Coded Allergies: CODEINE (Verified Allergy, Unknown, HIVES, 09/15/09) Objective Last 24 Hour Vital Signs Date Time Temp Pulse Resp B/P (MAP) Pulse Ox O2 Delivery O2 Flow Rate FiO2 04/25/19 07:25 99 T-Piece 6.0 28 04/25/19 07:24 84 25 97 T-Piece 6.0 28 80 24 97 04/25/19 07:00 81 24 110/45 (66) 98 04/25/19 06:00 82 25 101/42 (61) 97 04/25/19 05:00 83 24 114/34 (60) 98 04/25/19 05:00 81 04/25/19 04:00 T-piece 5.0 T-piece 5.0 04/25/19 04:00 5.0 28 04/25/19 04:00 98.2 80 24 120/37 (64) 98 04/25/19 04:00 83 04/25/19 03:34 82 24 100 T-Piece 6.0 28 80 24 96 04/25/19 03:00 83 27 127/53 (77) 98 04/25/19 02:00 83 28 103/44 (63) 97 04/25/19 01:00 84 28 106/48 (67) 96 04/25/19 00:45 100 T-Piece 6.0 28 04/25/19 00:00 81 04/25/19 00:00 5.0 28 04/25/19 00:00 98.6 84 25 102/47 (65) 96 04/25/19 00:00 T-piece 5.0 T-piece 5.0 04/24/19 23:06 79 26 98 T-Piece 6.0 28 81 24 96 04/24/19 23:00 81 26 110/47 (68) 97 04/24/19 22:00 83 25 100/46 (64) 97 04/24/19 21:00 83 25 104/49 (67) 97 04/24/19 20:00 84 04/24/19 20:00 98.4 85 28 122/46 (71) 97 04/24/19 20:00 5.0 28 04/24/19 20:00 T-piece 5.0 T-piece 5.0 04/24/19 19:00 84 23 123/34 (63) 98 04/24/19 18:49 85 27 100 T-Piece 6.0 28 83 30 97 04/24/19 18:49 100 T-Piece 6.0 28 04/24/19 18:00 82 24 123/35 (64) 98 04/24/19 17:00 86 22 141/40 (73) 99 04/24/19 16:00 5.0 28 04/24/19 16:00 T-piece 5.0 T-piece 5.0 04/24/19 16:00 98.7 89 29 133/29 (63) 98 04/24/19 15:32 88 04/24/19 15:00 87 24 127/30 (62) 98 04/24/19 14:30 86 24 100 T-Piece 6.0 28 87 28 97 04/24/19 14:00 85 26 127/32 (63) 98 04/24/19 13:00 82 24 111/35 (60) 100 04/24/19 12:46 100 T-Piece 6.0 28 04/24/19 12:01 86 04/24/19 12:00 T-piece 5.0 T-piece 5.0 04/24/19 12:00 5.0 28 04/24/19 12:00 98.4 88 24 132/42 (72) 98 04/24/19 11:17 86 23 100 T-Piece 6.0 28 90 28 96 04/24/19 11:00 88 23 106/43 (64) 96 04/24/19 10:00 90 30 121/34 (63) 93 04/24/19 09:00 78 22 113/29 (57) 99 Intake and Output 04/24/19 04/25/19 19:00 07:00 Intake Total 1120 ml 1320 ml Output Total 600 ml 850 ml Balance 520 ml 470 ml Free Water 200 ml 300 ml Tube Feeding 720 ml 720 ml Other 200 ml 300 ml Output Urine Total 250 ml 650 ml Gastric Drainage Total 200 ml Other 350 ml # Bowel Movements 1 Height (Feet): 5 Height (Inches): 3.00 Weight (Pounds): 125 General Appearance: lethargic EENT: normal ENT inspection Neck: supple Cardiovascular: normal rate Respiratory/Chest: decreased breath sounds Abdomen: normal bowel sounds, non tender, soft Extremities: non-tender Gary Guzman MD Apr 25, 2019 08:11
--- NOTE | 2019-04-25 08:15 | NUR ---
NURSE NOTES: Patient seen and assessed by Dr. Guzman.
[2019-04-25] MEDS: Sorbitol Solution UD 30ml GT SCH (08:37)
[2019-04-25] MEDS: Heparin 5000 units/ml inj SUBQ SCH ×2 (08:38→20:37)
--- NOTE | 2019-04-25 11:02 | Nephrology Progress Note ---
Assessment/Plan Problem List: (1) Acute renal failure (ARF) Assessment: Cr stable (2) Chronic respiratory failure (3) Anemia (4) Sepsis Assessment Acute renal failure Respiratory failure - Trach Low Mag- Low k , Low Na Anemia UTI / Sepsis Proteinuria / HypoAlbuminemia high Trigs Sz decubs bed bound DNR Plan check labs in am Transfused previously now has JT bolus Albumin as needed K and Mag and Phos supplement as needed Hydrate as needed Urine studies avoid Nephrotoxics mag K Phos supplements as needed monitor renal parameters Subjective ROS Limited/Unobtainable: Yes Objective Objective Last 24 Hour Vital Signs Date Time Temp Pulse Resp B/P (MAP) Pulse Ox O2 Delivery O2 Flow Rate FiO2 04/25/19 10:51 86 25 97 T-Piece 6.0 28 85 28 93 04/25/19 10:00 87 26 108/50 (69) 96 04/25/19 09:00 85 25 115/41 (65) 97 04/25/19 08:00 T-piece 5.0 T-piece 5.0 04/25/19 08:00 98.7 87 27 104/41 (62) 96 04/25/19 08:00 5.0 28 04/25/19 07:54 86 04/25/19 07:25 99 T-Piece 6.0 28 04/25/19 07:24 84 25 97 T-Piece 6.0 28 80 24 97 04/25/19 07:00 81 24 110/45 (66) 98 04/25/19 06:00 82 25 101/42 (61) 97 04/25/19 05:00 83 24 114/34 (60) 98 04/25/19 05:00 81 04/25/19 04:00 T-piece 5.0 T-piece 5.0 04/25/19 04:00 5.0 28 04/25/19 04:00 98.2 80 24 120/37 (64) 98 04/25/19 04:00 83 04/25/19 03:34 82 24 100 T-Piece 6.0 28 80 24 96 04/25/19 03:00 83 27 127/53 (77) 98 04/25/19 02:00 83 28 103/44 (63) 97 04/25/19 01:00 84 28 106/48 (67) 96 04/25/19 00:45 100 T-Piece 6.0 28 04/25/19 00:00 81 04/25/19 00:00 5.0 28 04/25/19 00:00 98.6 84 25 102/47 (65) 96 04/25/19 00:00 T-piece 5.0 T-piece 5.0 04/24/19 23:06 79 26 98 T-Piece 6.0 28 81 24 96 04/24/19 23:00 81 26 110/47 (68) 97 04/24/19 22:00 83 25 100/46 (64) 97 04/24/19 21:00 83 25 104/49 (67) 97 04/24/19 20:00 84 04/24/19 20:00 98.4 85 28 122/46 (71) 97 04/24/19 20:00 5.0 28 04/24/19 20:00 T-piece 5.0 T-piece 5.0 04/24/19 19:00 84 23 123/34 (63) 98 04/24/19 18:49 85 27 100 T-Piece 6.0 28 83 30 97 04/24/19 18:49 100 T-Piece 6.0 28 04/24/19 18:00 82 24 123/35 (64) 98 04/24/19 17:00 86 22 141/40 (73) 99 04/24/19 16:00 5.0 28 04/24/19 16:00 T-piece 5.0 T-piece 5.0 04/24/19 16:00 98.7 89 29 133/29 (63) 98 04/24/19 15:32 88 04/24/19 15:00 87 24 127/30 (62) 98 04/24/19 14:30 86 24 100 T-Piece 6.0 28 87 28 97 04/24/19 14:00 85 26 127/32 (63) 98 04/24/19 13:00 82 24 111/35 (60) 100 04/24/19 12:46 100 T-Piece 6.0 28 04/24/19 12:01 86 04/24/19 12:00 T-piece 5.0 T-piece 5.0 04/24/19 12:00 5.0 28 04/24/19 12:00 98.4 88 24 132/42 (72) 98 04/24/19 11:17 86 23 100 T-Piece 6.0 28 90 28 96 Intake and Output 04/24/19 04/25/19 19:00 07:00 Intake Total 1120 ml 1320 ml Output Total 600 ml 850 ml Balance 520 ml 470 ml Free Water 200 ml 300 ml Tube Feeding 720 ml 720 ml Other 200 ml 300 ml Output Urine Total 250 ml 650 ml Gastric Drainage Total 200 ml Other 350 ml # Bowel Movements 1 Height (Feet): 5 Height (Inches): 3.00 Weight (Pounds): 125 General Appearance: no apparent distress Cardiovascular: normal rate Respiratory/Chest: decreased breath sounds Abdomen: soft Objective no change Eric Cortez MD Apr 25, 2019 11:02
--- NOTE | 2019-04-25 11:08 | General Progress Note ---
Assessment/Plan Problem List: (1) Seizure ICD Codes: R56.9 - Unspecified convulsions SNOMED: 09029253 (2) Anemia ICD Codes: D64.9 - Anemia, unspecified SNOMED: 371914567 Qualifiers: Qualified Codes: D64.9 - Anemia, unspecified (3) Sepsis ICD Codes: A41.9 - Sepsis, unspecified organism SNOMED: 43720530, 521299196 Qualifiers: Qualified Codes: A41.9 - Sepsis, unspecified organism (4) Respiratory failure with hypoxia ICD Codes: J96.91 - Respiratory failure, unspecified with hypoxia SNOMED: 33043000831762077 Qualifiers: Qualified Codes: J96.21 - Acute and chronic respiratory failure with hypoxia (5) HCAP (healthcare-associated pneumonia) ICD Codes: J18.9 - Pneumonia, unspecified organism SNOMED: 363890019, 622356231 (6) Sacral decubitus ulcer ICD Codes: L89.159 - Pressure ulcer of sacral region, unspecified stage SNOMED: 440517722 (7) HTN (hypertension) ICD Codes: I10 - Essential (primary) hypertension SNOMED: 57374926 (8) Chronic vegetative state ICD Codes: R40.3 - Persistent vegetative state SNOMED: 79699690 (9) Chronic respiratory failure ICD Codes: J96.10 - Chronic respiratory failure, unspecified whether with hypoxia or hypercapnia SNOMED: 76694237 (10) Limited mobility ICD Codes: Z74.09 - Other reduced mobility SNOMED: 5118696 Status: stable, progressing Assessment/Plan: vent as needed resp rx suctioning j tube feeds g port to gravity skin care sz rx check labs/monitor Na level bowel regime dc planning Subjective ROS Limited/Unobtainable: Yes Constitutional: Reports: no symptoms HEENT: Reports: no symptoms Cardiovascular: Reports: no symptoms Respiratory: Reports: cough, sputum Genitourinary: Reports: no symptoms Neurologic/Psychiatric: Reports: pre-existing deficit, seizure Endocrine: Reports: no symptoms Hematologic/Lymphatic: Reports: anemia Allergies: Coded Allergies: CODEINE (Verified Allergy, Unknown, HIVES, 09/15/09) All Systems: reviewed and negative except above Subjective no events. no reports of bleeding. tolerating feeds, no vomiting. minimal secretions. no szs Objective Last 24 Hour Vital Signs Date Time Temp Pulse Resp B/P (MAP) Pulse Ox O2 Delivery O2 Flow Rate FiO2 04/25/19 10:51 86 25 97 T-Piece 6.0 28 85 28 93 04/25/19 10:00 87 26 108/50 (69) 96 04/25/19 09:00 85 25 115/41 (65) 97 04/25/19 08:00 T-piece 5.0 T-piece 5.0 04/25/19 08:00 98.7 87 27 104/41 (62) 96 04/25/19 08:00 5.0 28 04/25/19 07:54 86 04/25/19 07:25 99 T-Piece 6.0 28 04/25/19 07:24 84 25 97 T-Piece 6.0 28 80 24 97 04/25/19 07:00 81 24 110/45 (66) 98 04/25/19 06:00 82 25 101/42 (61) 97 04/25/19 05:00 83 24 114/34 (60) 98 04/25/19 05:00 81 04/25/19 04:00 T-piece 5.0 T-piece 5.0 04/25/19 04:00 5.0 28 04/25/19 04:00 98.2 80 24 120/37 (64) 98 04/25/19 04:00 83 04/25/19 03:34 82 24 100 T-Piece 6.0 28 80 24 96 04/25/19 03:00 83 27 127/53 (77) 98 04/25/19 02:00 83 28 103/44 (63) 97 04/25/19 01:00 84 28 106/48 (67) 96 04/25/19 00:45 100 T-Piece 6.0 28 04/25/19 00:00 81 04/25/19 00:00 5.0 28 04/25/19 00:00 98.6 84 25 102/47 (65) 96 04/25/19 00:00 T-piece 5.0 T-piece 5.0 04/24/19 23:06 79 26 98 T-Piece 6.0 28 81 24 96 04/24/19 23:00 81 26 110/47 (68) 97 04/24/19 22:00 83 25 100/46 (64) 97 04/24/19 21:00 83 25 104/49 (67) 97 04/24/19 20:00 84 04/24/19 20:00 98.4 85 28 122/46 (71) 97 04/24/19 20:00 5.0 28 04/24/19 20:00 T-piece 5.0 T-piece 5.0 04/24/19 19:00 84 23 123/34 (63) 98 04/24/19 18:49 85 27 100 T-Piece 6.0 28 83 30 97 04/24/19 18:49 100 T-Piece 6.0 28 04/24/19 18:00 82 24 123/35 (64) 98 04/24/19 17:00 86 22 141/40 (73) 99 04/24/19 16:00 5.0 28 04/24/19 16:00 T-piece 5.0 T-piece 5.0 04/24/19 16:00 98.7 89 29 133/29 (63) 98 04/24/19 15:32 88 04/24/19 15:00 87 24 127/30 (62) 98 04/24/19 14:30 86 24 100 T-Piece 6.0 28 87 28 97 04/24/19 14:00 85 26 127/32 (63) 98 04/24/19 13:00 82 24 111/35 (60) 100 04/24/19 12:46 100 T-Piece 6.0 28 04/24/19 12:01 86 04/24/19 12:00 T-piece 5.0 T-piece 5.0 04/24/19 12:00 5.0 28 04/24/19 12:00 98.4 88 24 132/42 (72) 98 04/24/19 11:17 86 23 100 T-Piece 6.0 28 90 28 96 Intake and Output 04/24/19 04/25/19 19:00 07:00 Intake Total 1120 ml 1320 ml Output Total 600 ml 850 ml Balance 520 ml 470 ml Free Water 200 ml 300 ml Tube Feeding 720 ml 720 ml Other 200 ml 300 ml Output Urine Total 250 ml 650 ml Gastric Drainage Total 200 ml Other 350 ml # Bowel Movements 1 Height (Feet): 5 Height (Inches): 3.00 Weight (Pounds): 125 Objective General Appearance: WD/WN, confused. on trach collar Neck: supple Cardiovascular: normal rate, regular rhythm Respiratory/Chest: chest wall non-tender, rhonchi - bilaterally(minimal) Abdomen: normal bowel sounds, non tender, soft, no organomegaly Edema: no edema noted Arm (L), no edema noted Arm (R), no edema noted Leg (L), no edema noted Leg (R), no edema noted Pedal (L), no edema noted Pedal (R), no edema noted Generalized Neurologic: disoriented, unresponsive, aphasia Irvin Beltrán MD Apr 25, 2019 11:08
--- NOTE | 2019-04-25 12:15 | Surgery Progress Note ---
Surgery Progress Note Subjective Symptoms: other Objective Last 24 Hour Vital Signs Date Time Temp Pulse Resp B/P (MAP) Pulse Ox O2 Delivery O2 Flow Rate FiO2 04/25/19 11:00 98 28 127/36 (66) 97 04/25/19 10:51 86 25 97 T-Piece 6.0 28 85 28 93 04/25/19 10:00 87 26 108/50 (69) 96 04/25/19 09:00 85 25 115/41 (65) 97 04/25/19 08:00 T-piece 5.0 T-piece 5.0 04/25/19 08:00 98.7 87 27 104/41 (62) 96 04/25/19 08:00 5.0 28 04/25/19 07:54 86 04/25/19 07:25 99 T-Piece 6.0 28 04/25/19 07:24 84 25 97 T-Piece 6.0 28 80 24 97 04/25/19 07:00 81 24 110/45 (66) 98 04/25/19 06:00 82 25 101/42 (61) 97 04/25/19 05:00 83 24 114/34 (60) 98 04/25/19 05:00 81 04/25/19 04:00 T-piece 5.0 T-piece 5.0 04/25/19 04:00 5.0 28 04/25/19 04:00 98.2 80 24 120/37 (64) 98 04/25/19 04:00 83 04/25/19 03:34 82 24 100 T-Piece 6.0 28 80 24 96 04/25/19 03:00 83 27 127/53 (77) 98 04/25/19 02:00 83 28 103/44 (63) 97 04/25/19 01:00 84 28 106/48 (67) 96 04/25/19 00:45 100 T-Piece 6.0 28 04/25/19 00:00 81 04/25/19 00:00 5.0 28 04/25/19 00:00 98.6 84 25 102/47 (65) 96 04/25/19 00:00 T-piece 5.0 T-piece 5.0 04/24/19 23:06 79 26 98 T-Piece 6.0 28 81 24 96 04/24/19 23:00 81 26 110/47 (68) 97 04/24/19 22:00 83 25 100/46 (64) 97 04/24/19 21:00 83 25 104/49 (67) 97 04/24/19 20:00 84 04/24/19 20:00 98.4 85 28 122/46 (71) 97 04/24/19 20:00 5.0 28 04/24/19 20:00 T-piece 5.0 T-piece 5.0 04/24/19 19:00 84 23 123/34 (63) 98 04/24/19 18:49 85 27 100 T-Piece 6.0 28 83 30 97 04/24/19 18:49 100 T-Piece 6.0 28 04/24/19 18:00 82 24 123/35 (64) 98 04/24/19 17:00 86 22 141/40 (73) 99 04/24/19 16:00 5.0 28 04/24/19 16:00 T-piece 5.0 T-piece 5.0 04/24/19 16:00 98.7 89 29 133/29 (63) 98 04/24/19 15:32 88 04/24/19 15:00 87 24 127/30 (62) 98 04/24/19 14:30 86 24 100 T-Piece 6.0 28 87 28 97 04/24/19 14:00 85 26 127/32 (63) 98 04/24/19 13:00 82 24 111/35 (60) 100 04/24/19 12:46 100 T-Piece 6.0 28 I&O Intake and Output 04/24/19 04/25/19 19:00 07:00 Intake Total 1120 ml 1320 ml Output Total 600 ml 850 ml Balance 520 ml 470 ml Free Water 200 ml 300 ml Tube Feeding 720 ml 720 ml Other 200 ml 300 ml Output Urine Total 250 ml 650 ml Gastric Drainage Total 200 ml Other 350 ml # Bowel Movements 1 Dressing: other Wound: other Drains: other Cardiovascular: RSR Respiratory: decreased breath sounds Abdomen: soft, present bowel sounds Extremities: no cyanosis Plan Problems: (1) Sacral decubitus ulcer Assessment & Plan: This is a 83-year-old female with multiple medical committees that is currently admitted for medical care and management and identified to have multiple wounds requiring care. On admission patient noted to have a resolved sacral decubitus ulcer. Has had prior care and is well-healed at this time. Will ensure it does not open up again. Patient has a right ischial decubitus ulcer that is resolved. Scar intact and well formed. Will monitor to ensure it does not open up again. Patient has a left ischial decubitus ulcer that can be identified to be stage IV with palpable bone that has been resolving as noted by the periwound tissue and scar but open area approximately 1 cm x 1.5 cm few millimeters deep to bone identified. Unsure if this is been to be completely healed prior and has since opened or if has been healing at this level. No foul odor no drainage was unsure local wound care until healed Bilateral heels soft without signs of injury Resolving pressure injury L ischium(L)1.8cm x (W)1cm.Scattered biofilm at base of wound. Edges flat and adherent with surrounding hyperpigmentation. No odor or exudate noted. Sacrum is pale pink with surrounding hyperpigmentation. Hyperpigmentation R ischium with small sheared area centrally.No areas of erythema or exudate noted. Both heels are soft but blanchable. Skin Assessed under collar of trach and no evidence of skin breakdown noted. All wound Tx. are effective and continued as ordered. Pt ahs an APM/Belén mattress overlay and is being repositioned per protocols and per tolerance.No new skin concerns noted. Full thickness pressure injury L Ischium with small amt biofilm (L)1.8cm x (W) 1cm. Surrounding pink hyperpigmentation. No odor or exudate noted. Dulac hyperpigmentation from previous wound noted to sacrum. Pt also noted to have Cat 2 Skin Tear dorsal L hand, L 5th metatarsal extending into palm of hand. 80% skin flap in situ.Both heels are dry firm and blanchable. No other skin concerns noted. R ischial wound has resolved. Dulac epithelial with surrounding hyperpigmentation. from historical wound. Full thickness pressure injury L ischium. Dulac granulation at base of wound. Borders are macerated with Surrounding hyperpigmentation.Small amt non-odorous serous exudate noted.(L)0.7cm x (W)0.8cm. Skin hyperpigmentation from historical wound noted to Sacrum. Small sheared area noted to sacrococcygeal area.(L)0.4cm x (W)0.3cm.Small amt sanguineous exudate noted. Reabsorbed blister with semi-detached dry necrotic cap noted to web space of L thumb and L index fingers extending into palm of L hand. No odor or exudate noted. Skin assessed under tracheal collar and no erythema or evidence of Skin Breakdown noted. NO new skin concerns noted . Good hand hygiene provided to both hands. R hand contracted and fisted. Fingernails trimmed. Wound care provided along with Primary nurse. Wound Tx continued as ordered. New order obtained from to apply Betadine to wound L hand Daily. Tx done as ordered. L hand wrapped with kerlix weaving kerlix between fingers to separate fingers. Moisture Barrier applied to sacrum ,R ischium. Each site covered with Optifoam drsg. Both lower ext washed and moisturized. Cavilon Skin Barrier applied to both heels.Each heel covered with Optifoam drsgs. Pt positioned with pillows and both heels off-loaded with pillow. Pt wounds are resolving. Loose necrotic cap within web space of L index finger and L thumb easily removed with gentle friction. Base of wound is hypergranular with 10% necrosis. Borders are macerated. Application of Silver Nitrate to hypergranular base done. Cavilon Skin Barrier applied to borders . Good hand hygiene provided. Wound covered with Abd pad. L hand wrapped with Kerlix weaving Kerlix between digitsof L hand. Pressure injury L ischium resolving. Base iof wound is pale pink and dry with surrounding hyperpigmentation and scar from previous wound. Hyperpigmentation with historical scars noted to Sacrum and R ischium. Both heels are soft and blanchable. Skin Assessed under trach collar and no evidence of skin breakdown noted. Tx.Plan: Apply Betadine to wound L hand. Cover with Gauze and wrap with Kerlix Daily and prn. Cleanse L ischial wound with Saline. Apply Therahoney. Apply Moisture Barrier periwound. Cover with Optifoam drsgevery 3 days and prn. Apply Moisture Barrier Paste to R ischium and Sacrum. Cover each area with Optifoam drsg. Change every 3 days and prn. Apply Cavilon Skin Barrier to both heels. Cover each heel with Optifoam drsg. Change every 7 days and prn. Cleanse Blister Dorsal and palm of L hand with saline. Versatel One Silicone Contact Layer(Applied). Apply Silvasorb Gel. Wrap with Kerlix Gauze.Change every 7 days and prn. Apply Moisture Barrier to sacrum. Cover with Optifoam drsg. Change every 3 days and prn. APM/BELÉN Mattress overlay. Reposition at least every 2hours or as tolerated. Off-load heels with pillow. Nutritional optimization We will monitor follow with recommendations cont with above upon d/c wounds healing overall improving (2) Sepsis Assessment & Plan: IV abx as per ID trend labs improving wounds unlikely etiology likely respiratory imaging noted and okay abnormal lft's stable PICC on Abx in ICU for desaturation CXR with consolidation cont with frequent suctioning d/c planning g j via GI daughter wants close attention to wounds and management to ensure healing Evidence of left lower lobe pneumonia, also previously demonstrated Gastrostomy in good position Mild diastasis of the rectus abdominis musculature again demonstrated Retrosacral decubitus changes, better depicted on prior exam which included the pelvis Small hiatal hernia with evidence of trace gastroesophageal reflux Discussed with GI. Recommend GJ family still pending decision transfuse prbc prn monitor h/h monitor bm LFTs improving trending down (3) Feeding by G-tube Assessment & Plan: DAILY ESTIMATED NEEDS: Needs based on Pulmonary, wounds, bedbound/ 61kg adj 25-30 kcals/kg 8010-9282 total kcals 1.25-2 g protein/kg 76-122 g total protein 25-30 mL/kg 0570-7908 total fluid mLs NUTRITION DIAGNOSIS: * Increased kcal/prot needs R/T wound healing as evidenced by BL buttocks and sacral wound photos, refer to WC eval. * Swallowing difficulty R/T respiratory status as evidenced by pt on T-collar, s/p G-J conversion CURRENT TF:Glucerna 1.5 @ 50ml/hr x 24 hrs ENTERAL NUTRITION RECOMMENDATIONS: Glucerna 1.5 @ 50ml/hr x 24 hrs to provide 1200ml, 1800 kcal, 99g pro, 911ml free H2O - Maintain at current rate as tolerated to meet 100% est needs - HOB over 30 degrees - INCREASE water flush of 170ml q 6 hrs ADDITIONAL RECOMMENDATIONS: 1) RE-calibrate bedscale wt: fluctuating daily wts (108#-136# last 6 days) 2) Wound healing: Add Cristian 1pkt BID w/ continued good TF tolerance. 3) Increase water flushes, monitor for signs of water deficits 4) Monitor BGs closely, need for NISS -> now w/ improved BGs 5) Monitor for continued good TF tolerance 6) Monitor K : elev K on 03/25, s/p Kdur BID, now dc'ed. (4) Chronic vegetative state Assessment & Plan: incontinence of urine and stool. can soil dressings. nurses doing great job with monitoring and changing prn (5) Leukocytosis Walter Madera Apr 25, 2019 12:15
[2019-04-25] MEDS ORDERED: NS 275ml ONE (13:46)
--- NOTE | 2019-04-25 14:59 | NUR ---
NURSE NOTES: Did oral care and suctioning on patient. Patient tolerated well, no signs of acute distress. Will continue to monitor.
--- NOTE | 2019-04-25 15:49 | NUR ---
NURSE NOTES: Patient seen and assessed by Dr. Hagen.
--- NOTE | 2019-04-25 15:58 | NUR ---
NURSE NOTES: Per Dr. Hagen, changed patient status to Step Down Unit, but will remain in ICU.
--- NOTE | 2019-04-25 16:20 | Pulmonolgy Critical Care Note ---
Critical Care - Asmt/Plan Assessment/Plan: Pulmonary CCM Progress Note Assessment/Plan Impression: history of Sepsis history of Pneumonia Trach, G tube, Hypertension, Cardiac disease, Dementia, Previous CVA, Seizure disorder, Respiratory failure with hypoxia Anemia, Sacral ulcer renal cyst chronic pulmonary congestion Plan continue to monitor off vent and monitor as is oxygen low flow aspiration precautions to continue elevate head and monitor secretions DNR. No CPR. ICU care reviewed meds noted off load all changes noted and discussed hope to transfer to [place] if family agrees medications/laboratory data/nursing notes/ICU care reviewed in detail note reviewed and edited care discussed with RN and RT Subjective Allergies: Coded Allergies: CODEINE Subjective respiratory care noted ICU care reviewed supportive care noted and reviewed RT care reviewed overnight care noted findings reviewed and discussed in detail with nursing and RT Objective Vital Signs Noted Objective WDWN NAD contracted off vent reduced breath sounds bilaterally with some rhonchi; no wheeze [id number] without MRG NABS nontender no HSM no CC minimal nonfocal nonverbal trach and gt reviewed and edited Laboratory Tests Noted Critical Care - Objective Last 24 Hour Vital Signs Date Time Temp Pulse Resp B/P (MAP) Pulse Ox O2 Delivery O2 Flow Rate FiO2 04/25/19 15:00 90 30 111/44 (66) 97 04/25/19 14:00 87 27 125/44 (71) 97 04/25/19 13:07 98 T-Piece 6.0 28 04/25/19 13:00 86 29 115/46 (69) 97 04/25/19 12:00 98.7 92 31 116/46 (69) 92 04/25/19 12:00 T-piece 5.0 T-piece 5.0 04/25/19 12:00 5.0 28 04/25/19 11:33 94 04/25/19 11:00 98 28 127/36 (66) 97 04/25/19 10:51 86 25 97 T-Piece 6.0 28 85 28 93 04/25/19 10:00 87 26 108/50 (69) 96 04/25/19 09:00 85 25 115/41 (65) 97 04/25/19 08:00 T-piece 5.0 T-piece 5.0 04/25/19 08:00 98.7 87 27 104/41 (62) 96 04/25/19 08:00 5.0 28 04/25/19 07:54 86 04/25/19 07:25 99 T-Piece 6.0 28 04/25/19 07:24 84 25 97 T-Piece 6.0 28 80 24 97 04/25/19 07:00 81 24 110/45 (66) 98 04/25/19 06:00 82 25 101/42 (61) 97 04/25/19 05:00 83 24 114/34 (60) 98 04/25/19 05:00 81 04/25/19 04:00 T-piece 5.0 T-piece 5.0 04/25/19 04:00 5.0 28 04/25/19 04:00 98.2 80 24 120/37 (64) 98 04/25/19 04:00 83 04/25/19 03:34 82 24 100 T-Piece 6.0 28 80 24 96 04/25/19 03:00 83 27 127/53 (77) 98 04/25/19 02:00 83 28 103/44 (63) 97 04/25/19 01:00 84 28 106/48 (67) 96 04/25/19 00:45 100 T-Piece 6.0 28 04/25/19 00:00 81 04/25/19 00:00 5.0 28 04/25/19 00:00 98.6 84 25 102/47 (65) 96 04/25/19 00:00 T-piece 5.0 T-piece 5.0 04/24/19 23:06 79 26 98 T-Piece 6.0 28 81 24 96 04/24/19 23:00 81 26 110/47 (68) 97 04/24/19 22:00 83 25 100/46 (64) 97 04/24/19 21:00 83 25 104/49 (67) 97 04/24/19 20:00 84 04/24/19 20:00 98.4 85 28 122/46 (71) 97 04/24/19 20:00 5.0 28 04/24/19 20:00 T-piece 5.0 T-piece 5.0 04/24/19 19:00 84 23 123/34 (63) 98 04/24/19 18:49 85 27 100 T-Piece 6.0 28 83 30 97 04/24/19 18:49 100 T-Piece 6.0 28 04/24/19 18:00 82 24 123/35 (64) 98 04/24/19 17:00 86 22 141/40 (73) 99 Accucheck: 123 Critical Care - Subjective ROS Limited/Unobtainable: No FI02: 28 Vent Support Mode: CPAP Vent Tidal Volume: 450 Sputum Amount: Small PEEP: 5.0 PIP: 19 Tube Feeding Amount: 60 I&O: Intake and Output 04/24/19 04/25/19 19:00 07:00 Intake Total 1120 ml 1320 ml Output Total 600 ml 850 ml Balance 520 ml 470 ml Free Water 200 ml 300 ml Tube Feeding 720 ml 720 ml Other 200 ml 300 ml Output Urine Total 250 ml 650 ml Gastric Drainage Total 200 ml Other 350 ml # Bowel Movements 1 ET-Tube: 6.0 Bg Moffett MD Apr 25, 2019 16:20
--- NOTE | 2019-04-25 19:14 | NUR ---
HAND-OFF: Report given to Patti PAEZ.
--- NOTE | 2019-04-25 20:00 | NUR ---
NURSE NOTES: received report from moses rn pt obtunded upper extremities contracted lower extremities stiff open eyes touch does not follows command tolerating tube feeding no residual reposition and suction
[2019-04-25] MEDS: Dyna-Hex 2% Top Sol 2oz TOPIC SCH (20:32)
--- NOTE | 2019-04-25 22:00 | NUR ---
NURSE NOTES: condition un change reposition un change
[2019-04-26] VITALS (28 sets, daily range): BP systolic 103–134; BP diastolic 28–78
--- NOTE | 2019-04-26 | NUR ---
NURSE NOTES: bs 100 no coverage
--- NOTE | 2019-04-26 02:00 | NUR ---
NURSE NOTES: no acute resp distress
[2019-04-26] MEDS: Albuterol/Ipratropium 3ml neb HHN SCH ×6 (03:59→23:07)
--- NOTE | 2019-04-26 04:00 | NUR ---
NURSE NOTES: complete bed bath oral care and back care
[2019-04-26 04:51] LABS: BASOPHILS % (AUTO) 0.6 % (0.0-2.0); EOSINOPHILS % (AUTO) 3.4 % (0.0-3.0); HEMATOCRIT 28.5 % (37.0-47.0); HEMOGLOBIN 9.5 G/DL (12.0-16.0); LYMPHOCYTES % (AUTO) 36.4 % (20.0-45.0); MEAN CORPUSCULAR VOLUME 89 FL (80-99); MONOCYTES % (AUTO) 6.1 % (1.0-10.0); NEUTROPHILS % (AUTO) 53.5 % (45.0-75.0); PLATELET COUNT 216 K/UL (150-450); RED BLOOD COUNT 3.19 M/UL (4.20-5.40); RED CELL DISTRIBUTION WIDTH 14.3 % (11.6-14.8); WHITE BLOOD COUNT 10.8 K/UL (4.8-10.8)
[2019-04-26 05:17] LABS: % IRON SATURATION 61 % (15-50); IRON 137 ug/dL (50-175); TOTAL IRON BINDING CAPACITY 226 ug/dL (250-450)
[2019-04-26 05:24] LABS: ANION GAP 8 mmol/L (5-15); BLOOD UREA NITROGEN 72 mg/dL (7-18); CALCIUM 9.1 MG/DL (8.5-10.1); CARBON DIOXIDE 27 MMOL/L (21-32); CHLORIDE 108 MMOL/L (98-107); CREATININE 1.1 MG/DL (0.55-1.30); POTASSIUM 4.8 MMOL/L (3.5-5.1); SODIUM 143 MMOL/L (136-145)
--- NOTE | 2019-04-26 06:00 | NUR ---
NURSE NOTES: bs 110 no coverage
[2019-04-26 06:06] LABS: FERRITIN 966 NG/ML (8-388)
[2019-04-26 06:44] LABS: ALANINE AMINOTRANSFERASE 188 U/L (12-78); ALBUMIN 3.1 G/DL (3.4-5.0); ALKALINE PHOSPHATASE 190 U/L (46-116); ASPARTATE AMINO TRANSFERASE 88 U/L (15-37); BILIRUBIN,DIRECT < 0.1 MG/DL (0.0-0.3); BILIRUBIN,TOTAL 0.2 MG/DL (0.2-1.0); PHOSPHORUS 4.2 MG/DL (2.5-4.9)
--- NOTE | 2019-04-26 07:16 | NUR ---
NURSE NOTES: Pt received from JEANNINE Aguilar without cardiopulmonary distress noted. Pt is asleep in bed, does not respond to voice or open eyes spontaneously, pupils are equal and round 4mm and sluggish to light reaction, pt does not respond to shaking or light pain but opens eyes and exhibits intact gag response when suctioned endotracheally. Pt is SR to property assessment monitor, afebrile 98.5 F ax. radial and dorsalis pedis pulses palpable 2+ bilaterally. cap refill 3 sec. Pt noted with T-piece on 5L O2 with FiO2 28%. lung sounds noted diminished in lower bilateral lobes and right upper lobe. Fine crackles upon exhalation noted to left upper lobe. GT noted with dry and intact dressing hooked to drainage bag with thick yellow gastric secretions. JT running Vital AF 1.2 at 60 cc/hr. no nausea or vomiting noted. Purewick noted draining yellow urine. Skin alterations noted. Pt has a JOSY PICC with dry and intact dressing running NS TKO at 5 cc/hr. Bed in lowest position, alarm on, side rails up x 2 and padded per seizure precaution, call light within reach, will continue to monitor. Addendum: 04/26/19 at 0918 by Sandy Cih RN Late entry: abd noted round, soft, with active bowel sounds to all quadrants
--- NOTE | 2019-04-26 07:16 | NUR ---
HAND-OFF: Report given to [ kaleb mann using s bar].
--- NOTE | 2019-04-26 07:19 | General Progress Note ---
Assessment/Plan Status: stable, progressing Assessment/Plan: Assessment/Plan Status: stable, progressing Assessment/Plan: Assessment - N/V - resolved with G --> J conversion - constipation - partly due to low residue formula used, good response to sorbitol - Elevated Alk phos / LFT - CT negative - abd U/S negative - check hepatitis serologies - negative - possibly MURRAY / Fatty liver - will periodically monitor - Anemia with OB (-) stools - Resp failure, s/p Trach - dysphagia, s/p PEG --> GJ tube - OBS, vegetative obtunded unresponsive state, bedbound with contracted extremities, - h/o minor GJ tube site irritation - elevated BUN/Cr - poor Prognosis Recommendations - daily sorbitol, and PRN sorbitol - Follow BUN/Cr - Cristian BID - antibiotic ointment to GJT site PRN - aspiration precautions - elevate HOB - Vital AF 1.2 - check q 6 hour FS - transfuse to keep Hg > 7 - J tube feeds - G tube drain Subjective ROS Limited/Unobtainable: No Allergies: Coded Allergies: CODEINE (Verified Allergy, Unknown, HIVES, 09/15/09) Objective Last 24 Hour Vital Signs Date Time Temp Pulse Resp B/P (MAP) Pulse Ox O2 Delivery O2 Flow Rate FiO2 04/26/19 07:05 120 20 98 T-Piece 6.0 28 97 19 98 04/26/19 07:01 99 T-Piece 6.0 28 04/26/19 06:00 86 25 122/33 (62) 98 04/26/19 05:00 85 25 105/48 (67) 96 04/26/19 04:00 T-piece 5.0 T-piece 5.0 04/26/19 04:00 98.6 80 27 118/78 (91) 99 04/26/19 04:00 85 04/26/19 04:00 5.0 28 04/26/19 03:59 84 20 100 T-Piece 6.0 28 80 20 99 04/26/19 03:00 85 26 121/34 (63) 98 04/26/19 02:00 86 27 115/33 (60) 98 04/26/19 01:02 98 T-Piece 6.0 28 04/26/19 01:00 86 27 109/42 (64) 96 04/26/19 01:00 86 27 109/42 (64) 96 04/26/19 00:30 85 27 109/45 (66) 97 04/26/19 00:00 85 26 103/43 (63) 96 04/26/19 00:00 T-piece 5.0 T-piece 5.0 04/26/19 00:00 86 04/26/19 00:00 98.2 85 26 103/43 (63) 96 04/26/19 00:00 5.0 28 04/25/19 23:00 83 27 104/36 (58) 99 04/25/19 22:50 86 20 99 T-Piece 6.0 28 84 20 98 04/25/19 22:00 85 26 104/42 (62) 97 04/25/19 21:00 85 28 112/41 (64) 98 04/25/19 20:00 98.5 86 26 114/50 (71) 96 04/25/19 20:00 T-piece 5.0 T-piece 5.0 04/25/19 20:00 86 04/25/19 20:00 5.0 28 04/25/19 19:20 98 T-Piece 6.0 28 04/25/19 19:17 84 20 99 T-Piece 6.0 28 82 20 98 04/25/19 19:00 83 27 116/44 (68) 97 04/25/19 18:00 92 24 86/69 (75) 98 04/25/19 17:00 86 28 118/43 (68) 97 04/25/19 16:19 85 04/25/19 16:00 T-piece 5.0 T-piece 5.0 04/25/19 16:00 98.5 87 29 109/39 (62) 97 04/25/19 16:00 5.0 28 04/25/19 15:00 90 30 111/44 (66) 97 04/25/19 14:00 87 27 125/44 (71) 97 04/25/19 13:07 98 T-Piece 6.0 28 04/25/19 13:00 86 29 115/46 (69) 97 04/25/19 12:00 98.7 92 31 116/46 (69) 92 04/25/19 12:00 T-piece 5.0 T-piece 5.0 04/25/19 12:00 5.0 28 04/25/19 11:33 94 04/25/19 11:00 98 28 127/36 (66) 97 04/25/19 10:51 86 25 97 T-Piece 6.0 28 85 28 93 04/25/19 10:00 87 26 108/50 (69) 96 04/25/19 09:00 85 25 115/41 (65) 97 04/25/19 08:00 T-piece 5.0 T-piece 5.0 04/25/19 08:00 98.7 87 27 104/41 (62) 96 04/25/19 08:00 5.0 28 04/25/19 07:54 86 04/25/19 07:25 99 T-Piece 6.0 28 04/25/19 07:24 84 25 97 T-Piece 6.0 28 80 24 97 Intake and Output 04/25/19 04/26/19 19:00 07:00 Intake Total 1120 ml 1260 ml Output Total 600 ml 1050 ml Balance 520 ml 210 ml Free Water 200 ml 300 ml Tube Feeding 720 ml 660 ml Other 200 ml 300 ml Output Urine Total 400 ml 800 ml Gastric Drainage Total 250 ml Other 200 ml Laboratory Tests 04/26/19 04:00: White Blood Count 10.8, Red Blood Count 3.19L, Hemoglobin 9.5L, Hematocrit 28.5L , Mean Corpuscular Volume 89, Mean Corpuscular Hemoglobin 29.8, Mean Corpuscular Hemoglobin Concent 33.3, Red Cell Distribution Width 14.3, Platelet Count 216, Mean Platelet Volume 5.7L, Neutrophils (%) (Auto) 53.5, Lymphocytes ( %) (Auto) 36.4, Monocytes (%) (Auto) 6.1, Eosinophils (%) (Auto) 3.4H, Basophils (%) (Auto) 0.6, Sodium Level 143, Potassium Level 4.8, Chloride Level 108H, Carbon Dioxide Level 27, Anion Gap 8, Blood Urea Nitrogen 72H, Creatinine 1.1, Estimat Glomerular Filtration Rate , Glucose Level 103, Calcium Level 9.1, Phosphorus Level 4.2, Magnesium Level 2.7H, Iron Level 137, Total Iron Binding Capacity 226L, Percent Iron Saturation 61H, Unsaturated Iron Binding 89L, Ferritin 966H, Total Bilirubin 0.2, Direct Bilirubin < 0.1, Aspartate Amino Transf (AST/SGOT) 88H, Alanine Aminotransferase (ALT/SGPT) 188H, Alkaline Phosphatase 190H, Total Protein 8.7H, Albumin 3.1L Height (Feet): 5 Height (Inches): 3.00 Weight (Pounds): 130 General Appearance: lethargic EENT: normal ENT inspection Neck: supple Cardiovascular: normal rate Respiratory/Chest: decreased breath sounds Abdomen: normal bowel sounds, non tender, soft Extremities: non-tender Gary Guzman MD Apr 26, 2019 07:19
--- NOTE | 2019-04-26 08:00 | NUR ---
NURSE NOTES: Dr Beltrán at bedside assessing pt. bedside glucose checks discontinued. GT ad JT ports flushed with 100 cc H20 each. Pt in no acute distress. Oral care provided and pt repositioned. Will continue to monitor.
[2019-04-26] MEDS: Sorbitol Solution UD 30ml GT SCH (09:12)
[2019-04-26] MEDS: Heparin 5000 units/ml inj SUBQ SCH ×2 (09:13→21:29)
--- NOTE | 2019-04-26 10:00 | NUR ---
NURSE NOTES: Pt in n acute distress, currently asleep. Pt suctioned endotracheally, gag reflex present upon suction. Pt also opens eyes when suctioned or in response to deep pain. Pt repositioned. Will continue to monitor.
--- NOTE | 2019-04-26 11:01 | Nephrology Progress Note ---
Assessment/Plan Problem List: (1) Acute renal failure (ARF) Assessment: Cr stable (2) Chronic respiratory failure (3) Anemia (4) Sepsis Assessment Acute renal failure Respiratory failure - Trach Low Mag- Low k , Low Na Anemia UTI / Sepsis Proteinuria / HypoAlbuminemia high Trigs Sz decubs bed bound DNR Plan checked labs Transfused previously now has JT bolus Albumin as needed K and Mag and Phos supplement as needed Hydrate as needed Urine studies avoid Nephrotoxics mag K Phos supplements as needed monitor renal parameters Subjective ROS Limited/Unobtainable: Yes Objective Objective Last 24 Hour Vital Signs Date Time Temp Pulse Resp B/P (MAP) Pulse Ox O2 Delivery O2 Flow Rate FiO2 04/26/19 10:50 102 32 96 T-Piece 6.0 28 108 26 92 04/26/19 10:00 98 32 128/53 (78) 92 04/26/19 09:00 T-piece 5.0 T-piece 5.0 T-piece 5.0 04/26/19 09:00 96 28 113/43 (66) 97 04/26/19 08:00 5.0 28 04/26/19 08:00 98.5 100 27 114/45 (68) 96 04/26/19 08:00 101 04/26/19 07:05 120 20 98 T-Piece 6.0 28 97 19 98 04/26/19 07:01 99 T-Piece 6.0 28 04/26/19 07:00 93 29 122/28 (59) 97 04/26/19 06:00 86 25 122/33 (62) 98 04/26/19 05:00 85 25 105/48 (67) 96 04/26/19 04:00 T-piece 5.0 T-piece 5.0 04/26/19 04:00 98.6 80 27 118/78 (91) 99 04/26/19 04:00 85 04/26/19 04:00 5.0 28 04/26/19 03:59 84 20 100 T-Piece 6.0 28 80 20 99 04/26/19 03:00 85 26 121/34 (63) 98 04/26/19 02:00 86 27 115/33 (60) 98 04/26/19 01:02 98 T-Piece 6.0 28 04/26/19 01:00 86 27 109/42 (64) 96 04/26/19 01:00 86 27 109/42 (64) 96 04/26/19 00:30 85 27 109/45 (66) 97 04/26/19 00:00 85 26 103/43 (63) 96 04/26/19 00:00 T-piece 5.0 T-piece 5.0 04/26/19 00:00 86 04/26/19 00:00 98.2 85 26 103/43 (63) 96 04/26/19 00:00 5.0 28 04/25/19 23:00 83 27 104/36 (58) 99 04/25/19 22:50 86 20 99 T-Piece 6.0 28 84 20 98 04/25/19 22:00 85 26 104/42 (62) 97 04/25/19 21:00 85 28 112/41 (64) 98 04/25/19 20:00 98.5 86 26 114/50 (71) 96 04/25/19 20:00 T-piece 5.0 T-piece 5.0 04/25/19 20:00 86 04/25/19 20:00 5.0 28 04/25/19 19:20 98 T-Piece 6.0 28 04/25/19 19:17 84 20 99 T-Piece 6.0 28 82 20 98 04/25/19 19:00 83 27 116/44 (68) 97 04/25/19 18:00 92 24 86/69 (75) 98 04/25/19 17:00 86 28 118/43 (68) 97 04/25/19 16:19 85 04/25/19 16:00 T-piece 5.0 T-piece 5.0 04/25/19 16:00 98.5 87 29 109/39 (62) 97 04/25/19 16:00 5.0 28 04/25/19 15:00 90 30 111/44 (66) 97 04/25/19 14:00 87 27 125/44 (71) 97 04/25/19 13:07 98 T-Piece 6.0 28 04/25/19 13:00 86 29 115/46 (69) 97 04/25/19 12:00 98.7 92 31 116/46 (69) 92 04/25/19 12:00 T-piece 5.0 T-piece 5.0 04/25/19 12:00 5.0 28 04/25/19 11:33 94 Intake and Output 04/25/19 04/26/19 19:00 07:00 Intake Total 1120 ml 1320 ml Output Total 600 ml 1050 ml Balance 520 ml 270 ml Free Water 200 ml 300 ml Tube Feeding 720 ml 720 ml Other 200 ml 300 ml Output Urine Total 400 ml 800 ml Gastric Drainage Total 250 ml Other 200 ml Current Medications Medications (Trade) Dose Ordered Sig/Maicol Route PRN Reason Start Time Stop Time Status Last Admin Dose Admin Albuterol/ Ipratropium (Albuterol/ Ipratropium) 3 ml Q4HRT HHN 04/25/19 19:00 04/30/19 18:59 04/26/19 10:50 Atropine Sulfate (Atropine Opth Adriana) 1 drop THREE TIMES A DAY SL 04/08/19 09:00 05/07/19 20:59 04/26/19 09:11 Chlorhexidine Gluconate (Cesilia-Hex 2%) 1 applic DAILY@1999 TOPIC 04/12/19 20:00 05/12/19 19:59 04/25/19 20:32 Heparin Sodium (Porcine) (Heparin 5000 units/ml) 5,000 units EVERY 12 HOURS SUBQ 04/01/19 10:00 05/01/19 09:59 04/26/19 09:13 Hydralazine HCl (Apresoline) 25 mg Q6H PRN ORAL SBP above 150 04/06/19 02:45 05/06/19 02:44 04/06/19 11:15 Levetiracetam (Keppra) 750 mg Q12HR GT 04/07/19 21:00 05/07/19 20:59 04/26/19 09:11 Sorbitol (Sorbitol) 30 ml BIDPRN PRN ORAL Constipation 04/13/19 11:15 05/13/19 11:14 Sorbitol (sorbitoL) 30 ml DAILY GT 04/14/19 09:00 05/14/19 08:59 04/26/19 09:12 Laboratory Tests 04/26/19 04:00: White Blood Count 10.8, Red Blood Count 3.19L, Hemoglobin 9.5L, Hematocrit 28.5L , Mean Corpuscular Volume 89, Mean Corpuscular Hemoglobin 29.8, Mean Corpuscular Hemoglobin Concent 33.3, Red Cell Distribution Width 14.3, Platelet Count 216, Mean Platelet Volume 5.7L, Neutrophils (%) (Auto) 53.5, Lymphocytes ( %) (Auto) 36.4, Monocytes (%) (Auto) 6.1, Eosinophils (%) (Auto) 3.4H, Basophils (%) (Auto) 0.6, Sodium Level 143, Potassium Level 4.8, Chloride Level 108H, Carbon Dioxide Level 27, Anion Gap 8, Blood Urea Nitrogen 72H, Creatinine 1.1, Estimat Glomerular Filtration Rate , Glucose Level 103, Calcium Level 9.1, Phosphorus Level 4.2, Magnesium Level 2.7H, Iron Level 137, Total Iron Binding Capacity 226L, Percent Iron Saturation 61H, Unsaturated Iron Binding 89L, Ferritin 966H, Total Bilirubin 0.2, Direct Bilirubin < 0.1, Aspartate Amino Transf (AST/SGOT) 88H, Alanine Aminotransferase (ALT/SGPT) 188H, Alkaline Phosphatase 190H, Total Protein 8.7H, Albumin 3.1L Height (Feet): 5 Height (Inches): 3.00 Weight (Pounds): 130 General Appearance: no apparent distress Objective no change Eric Cortez MD Apr 26, 2019 11:01
--- NOTE | 2019-04-26 12:00 | NUR ---
NURSE NOTES: Oral care provided, pt repositioned. No acute distress noted. Pt remains with unchanged mental status. Temp noted 98.3 ax. Addendum: 04/26/19 at 1324 by Sandy Chi RN Late entry: GT and JT flushed with 100cc H20 each.
--- NOTE | 2019-04-26 12:36 | Infectious Diseases Prog Note ---
Assessment/Plan Assessment/Plan A 1. Providencia & Klebsiella pneumonia treated 2. respiratory failure 3. hypertension 4. CVA 5. dementia 6. sacral decubitus ulcer 7. rectal VRE colonization 8. Anemia 9. Proteus UTI 10. Acute renal failure 11. Leukocytosis resolved P 1.Observe off antibiotic 2. Frequent suctioning 3. Remove PICC line before discharge Subjective ROS Limited/Unobtainable: Yes Constitutional: Denies: fever Allergies: Coded Allergies: CODEINE (Verified Allergy, Unknown, HIVES, 09/15/09) Objective Vital Signs Last 24 Hour Vital Signs Date Time Temp Pulse Resp B/P (MAP) Pulse Ox O2 Delivery O2 Flow Rate FiO2 04/26/19 12:00 5.0 28 04/26/19 11:00 108 31 119/49 (72) 94 04/26/19 10:50 102 32 96 T-Piece 6.0 28 108 26 92 04/26/19 10:00 98 32 128/53 (78) 92 04/26/19 09:00 T-piece 5.0 T-piece 5.0 T-piece 5.0 04/26/19 09:00 96 28 113/43 (66) 97 04/26/19 08:00 5.0 28 04/26/19 08:00 98.5 100 27 114/45 (68) 96 04/26/19 08:00 101 04/26/19 07:05 120 20 98 T-Piece 6.0 28 97 19 98 04/26/19 07:01 99 T-Piece 6.0 28 04/26/19 07:00 93 29 122/28 (59) 97 04/26/19 06:00 86 25 122/33 (62) 98 04/26/19 05:00 85 25 105/48 (67) 96 04/26/19 04:00 T-piece 5.0 T-piece 5.0 04/26/19 04:00 98.6 80 27 118/78 (91) 99 04/26/19 04:00 85 04/26/19 04:00 5.0 28 04/26/19 03:59 84 20 100 T-Piece 6.0 28 80 20 99 04/26/19 03:00 85 26 121/34 (63) 98 04/26/19 02:00 86 27 115/33 (60) 98 04/26/19 01:02 98 T-Piece 6.0 28 04/26/19 01:00 86 27 109/42 (64) 96 04/26/19 01:00 86 27 109/42 (64) 96 04/26/19 00:30 85 27 109/45 (66) 97 04/26/19 00:00 85 26 103/43 (63) 96 04/26/19 00:00 T-piece 5.0 T-piece 5.0 04/26/19 00:00 86 04/26/19 00:00 98.2 85 26 103/43 (63) 96 04/26/19 00:00 5.0 28 04/25/19 23:00 83 27 104/36 (58) 99 04/25/19 22:50 86 20 99 T-Piece 6.0 28 84 20 98 04/25/19 22:00 85 26 104/42 (62) 97 04/25/19 21:00 85 28 112/41 (64) 98 04/25/19 20:00 98.5 86 26 114/50 (71) 96 04/25/19 20:00 T-piece 5.0 T-piece 5.0 04/25/19 20:00 86 04/25/19 20:00 5.0 28 04/25/19 19:20 98 T-Piece 6.0 28 04/25/19 19:17 84 20 99 T-Piece 6.0 28 82 20 98 04/25/19 19:00 83 27 116/44 (68) 97 04/25/19 18:00 92 24 86/69 (75) 98 04/25/19 17:00 86 28 118/43 (68) 97 04/25/19 16:19 85 04/25/19 16:00 T-piece 5.0 T-piece 5.0 04/25/19 16:00 98.5 87 29 109/39 (62) 97 04/25/19 16:00 5.0 28 04/25/19 15:00 90 30 111/44 (66) 97 04/25/19 14:00 87 27 125/44 (71) 97 04/25/19 13:07 98 T-Piece 6.0 28 04/25/19 13:00 86 29 115/46 (69) 97 Height (Feet): 5 Height (Inches): 3.00 Weight (Pounds): 130 HEENT: status post trach Respiratory/Chest: other - coarse sounds on T bar Cardiovascular: tachycardia, other - R arm PICC line Abdomen: soft, non tender, other - GT feeding Extremities: no edema Neurologic/Psychiatric: unresponsiveness, aphasia Laboratory Tests Test 04/26/19 04:00 White Blood Count 10.8 K/UL (4.8-10.8) Red Blood Count 3.19 M/UL (4.20-5.40) L Hemoglobin 9.5 G/DL (12.0-16.0) L Hematocrit 28.5 % (37.0-47.0) L Mean Corpuscular Volume 89 FL (80-99) Mean Corpuscular Hemoglobin 29.8 PG (27.0-31.0) Mean Corpuscular Hemoglobin Concent 33.3 G/DL (32.0-36.0) Red Cell Distribution Width 14.3 % (11.6-14.8) Platelet Count 216 K/UL (150-450) Mean Platelet Volume 5.7 FL (6.5-10.1) L Neutrophils (%) (Auto) 53.5 % (45.0-75.0) Lymphocytes (%) (Auto) 36.4 % (20.0-45.0) Monocytes (%) (Auto) 6.1 % (1.0-10.0) Eosinophils (%) (Auto) 3.4 % (0.0-3.0) H Basophils (%) (Auto) 0.6 % (0.0-2.0) Sodium Level 143 MMOL/L (136-145) Potassium Level 4.8 MMOL/L (3.5-5.1) Chloride Level 108 MMOL/L (98-107) H Carbon Dioxide Level 27 MMOL/L (21-32) Anion Gap 8 mmol/L (5-15) Blood Urea Nitrogen 72 mg/dL (7-18) H Creatinine 1.1 MG/DL (0.55-1.30) Estimat Glomerular Filtration Rate mL/min (>60) Glucose Level 103 MG/DL (74-106) Calcium Level 9.1 MG/DL (8.5-10.1) Phosphorus Level 4.2 MG/DL (2.5-4.9) Magnesium Level 2.7 MG/DL (1.8-2.4) H Iron Level 137 ug/dL (50-175) Total Iron Binding Capacity 226 ug/dL (250-450) L Percent Iron Saturation 61 % (15-50) H Unsaturated Iron Binding 89 ug/dL (112-346) L Ferritin 966 NG/ML (8-388) H Total Bilirubin 0.2 MG/DL (0.2-1.0) Direct Bilirubin < 0.1 MG/DL (0.0-0.3) Aspartate Amino Transf (AST/SGOT) 88 U/L (15-37) H Alanine Aminotransferase (ALT/SGPT) 188 U/L (12-78) H Alkaline Phosphatase 190 U/L (46-116) H Total Protein 8.7 G/DL (6.4-8.2) H Albumin 3.1 G/DL (3.4-5.0) L Current Medications Medications (Trade) Dose Ordered Sig/Maicol Route PRN Reason Start Time Stop Time Status Last Admin Dose Admin Albuterol/ Ipratropium (Albuterol/ Ipratropium) 3 ml Q4HRT HHN 04/25/19 19:00 04/30/19 18:59 04/26/19 10:50 Atropine Sulfate (Atropine Opth Adriana) 1 drop THREE TIMES A DAY SL 04/08/19 09:00 05/07/19 20:59 04/26/19 09:11 Chlorhexidine Gluconate (Cesilia-Hex 2%) 1 applic DAILY@2000 TOPIC 04/12/19 20:00 05/12/19 19:59 04/25/19 20:32 Heparin Sodium (Porcine) (Heparin 5000 units/ml) 5,000 units EVERY 12 HOURS SUBQ 04/01/19 10:00 05/01/19 09:59 04/26/19 09:13 Hydralazine HCl (Apresoline) 25 mg Q6H PRN ORAL SBP above 150 04/06/19 02:45 05/06/19 02:44 04/06/19 11:15 Levetiracetam (Keppra) 750 mg Q12HR GT 04/07/19 21:00 05/07/19 20:59 04/26/19 09:11 Sorbitol (Sorbitol) 30 ml BIDPRN PRN ORAL Constipation 04/13/19 11:15 05/13/19 11:14 Sorbitol (sorbitoL) 30 ml DAILY GT 04/14/19 09:00 05/14/19 08:59 04/26/19 09:12 Chauncey Liriano MD Apr 26, 2019 12:36
--- NOTE | 2019-04-26 12:56 | Pulmonology Progress Note ---
Assessment/Plan Assessment/Plan Pulmonary Progress Note HPI This an 83-year-old female with history of tracheostomy, VDRF, feeding tube, admitted with Pneumonia, respiratory distress. Tolerating TC Awaiting LTAC placement Past Medical History: VDRF, Trach, G tube, Hypertension, Cardiac disease, Dementia, Previous CVA, TIA, Seizure disorder, previous cancer Impression: Sepsis syndrome Pneumonia VDRF, Trach, G tube, Hypertension, Cardiac disease, Dementia, Previous CVA, Seizure disorder, Respiratory failure with hypoxia Anemia Sacral ulcer renal cyst Plan continue current AB TC as tolerated mucomyst and duoneb SNF meds as is Adjust oxygen as needed Monitor labs for change changes noted Patient is a DNR. No CPR. dc planning per family and primary impression, plan, and exam edited and reviewed in detail care discussed with RN Subjective Allergies: Coded Allergies: CODEINE (Verified Allergy, Unknown, HIVES, 09/15/09) Subjective on AC on mucomyst and duoneb noted congestion supportive care noted RT care reviewed overnight care reviewed Objective Vital Signs Noted Objective WDWN NAD contracted on vent reduced breath sounds bilaterally with scattered rhonchi same [id number] without MRG NABS nontender no HSM no CC minimal nonfocal nonverbal trach and gt reviewed and edited Laboratory Tests Noted Subjective ROS Limited/Unobtainable: No Allergies: Coded Allergies: CODEINE (Verified Allergy, Unknown, HIVES, 09/15/09) Objective Last 24 Hour Vital Signs Date Time Temp Pulse Resp B/P (MAP) Pulse Ox O2 Delivery O2 Flow Rate FiO2 04/26/19 12:47 96 T-Piece 6.0 28 04/26/19 12:00 T-piece 5.0 T-piece 5.0 T-piece 5.0 04/26/19 12:00 97 04/26/19 12:00 98.3 102 30 108/44 (65) 95 04/26/19 12:00 5.0 28 04/26/19 11:00 108 31 119/49 (72) 94 04/26/19 10:50 102 32 96 T-Piece 6.0 28 108 26 92 04/26/19 10:00 98 32 128/53 (78) 92 04/26/19 09:00 T-piece 5.0 T-piece 5.0 T-piece 5.0 04/26/19 09:00 96 28 113/43 (66) 97 04/26/19 08:00 5.0 28 04/26/19 08:00 98.5 100 27 114/45 (68) 96 04/26/19 08:00 101 04/26/19 07:05 120 20 98 T-Piece 6.0 28 97 19 98 04/26/19 07:01 99 T-Piece 6.0 28 04/26/19 07:00 93 29 122/28 (59) 97 04/26/19 06:00 86 25 122/33 (62) 98 04/26/19 05:00 85 25 105/48 (67) 96 04/26/19 04:00 T-piece 5.0 T-piece 5.0 04/26/19 04:00 98.6 80 27 118/78 (91) 99 04/26/19 04:00 85 04/26/19 04:00 5.0 28 04/26/19 03:59 84 20 100 T-Piece 6.0 28 80 20 99 04/26/19 03:00 85 26 121/34 (63) 98 04/26/19 02:00 86 27 115/33 (60) 98 04/26/19 01:02 98 T-Piece 6.0 28 04/26/19 01:00 86 27 109/42 (64) 96 04/26/19 01:00 86 27 109/42 (64) 96 04/26/19 00:30 85 27 109/45 (66) 97 04/26/19 00:00 85 26 103/43 (63) 96 04/26/19 00:00 T-piece 5.0 T-piece 5.0 04/26/19 00:00 86 04/26/19 00:00 98.2 85 26 103/43 (63) 96 04/26/19 00:00 5.0 28 04/25/19 23:00 83 27 104/36 (58) 99 04/25/19 22:50 86 20 99 T-Piece 6.0 28 84 20 98 04/25/19 22:00 85 26 104/42 (62) 97 04/25/19 21:00 85 28 112/41 (64) 98 04/25/19 20:00 98.5 86 26 114/50 (71) 96 04/25/19 20:00 T-piece 5.0 T-piece 5.0 04/25/19 20:00 86 04/25/19 20:00 5.0 28 04/25/19 19:20 98 T-Piece 6.0 28 04/25/19 19:17 84 20 99 T-Piece 6.0 28 82 20 98 04/25/19 19:00 83 27 116/44 (68) 97 04/25/19 18:00 92 24 86/69 (75) 98 04/25/19 17:00 86 28 118/43 (68) 97 04/25/19 16:19 85 04/25/19 16:00 T-piece 5.0 T-piece 5.0 04/25/19 16:00 98.5 87 29 109/39 (62) 97 04/25/19 16:00 5.0 28 04/25/19 15:00 90 30 111/44 (66) 97 04/25/19 14:00 87 27 125/44 (71) 97 04/25/19 13:07 98 T-Piece 6.0 28 04/25/19 13:00 86 29 115/46 (69) 97 Intake and Output 04/25/19 04/26/19 19:00 07:00 Intake Total 1120 ml 1320 ml Output Total 600 ml 1050 ml Balance 520 ml 270 ml Free Water 200 ml 300 ml Tube Feeding 720 ml 720 ml Other 200 ml 300 ml Output Urine Total 400 ml 800 ml Gastric Drainage Total 250 ml Other 200 ml Laboratory Tests 04/26/19 04:00: White Blood Count 10.8, Red Blood Count 3.19L, Hemoglobin 9.5L, Hematocrit 28.5L , Mean Corpuscular Volume 89, Mean Corpuscular Hemoglobin 29.8, Mean Corpuscular Hemoglobin Concent 33.3, Red Cell Distribution Width 14.3, Platelet Count 216, Mean Platelet Volume 5.7L, Neutrophils (%) (Auto) 53.5, Lymphocytes ( %) (Auto) 36.4, Monocytes (%) (Auto) 6.1, Eosinophils (%) (Auto) 3.4H, Basophils (%) (Auto) 0.6, Sodium Level 143, Potassium Level 4.8, Chloride Level 108H, Carbon Dioxide Level 27, Anion Gap 8, Blood Urea Nitrogen 72H, Creatinine 1.1, Estimat Glomerular Filtration Rate , Glucose Level 103, Calcium Level 9.1, Phosphorus Level 4.2, Magnesium Level 2.7H, Iron Level 137, Total Iron Binding Capacity 226L, Percent Iron Saturation 61H, Unsaturated Iron Binding 89L, Ferritin 966H, Total Bilirubin 0.2, Direct Bilirubin < 0.1, Aspartate Amino Transf (AST/SGOT) 88H, Alanine Aminotransferase (ALT/SGPT) 188H, Alkaline Phosphatase 190H, Total Protein 8.7H, Albumin 3.1L Current Medications Medications (Trade) Dose Ordered Sig/Maicol Route PRN Reason Start Time Stop Time Status Last Admin Dose Admin Albuterol/ Ipratropium (Albuterol/ Ipratropium) 3 ml Q4HRT HHN 04/25/19 19:00 04/30/19 18:59 04/26/19 10:50 Atropine Sulfate (Atropine Opth Adriana) 1 drop THREE TIMES A DAY SL 04/08/19 09:00 05/07/19 20:59 04/26/19 09:11 Chlorhexidine Gluconate (Cesilia-Hex 2%) 1 applic DAILY@2000 TOPIC 04/12/19 20:00 05/12/19 19:59 04/25/19 20:32 Heparin Sodium (Porcine) (Heparin 5000 units/ml) 5,000 units EVERY 12 HOURS SUBQ 04/01/19 10:00 05/01/19 09:59 04/26/19 09:13 Hydralazine HCl (Apresoline) 25 mg Q6H PRN ORAL SBP above 150 04/06/19 02:45 05/06/19 02:44 04/06/19 11:15 Levetiracetam (Keppra) 750 mg Q12HR GT 04/07/19 21:00 05/07/19 20:59 04/26/19 09:11 Sorbitol (Sorbitol) 30 ml BIDPRN PRN ORAL Constipation 04/13/19 11:15 05/13/19 11:14 Sorbitol (sorbitoL) 30 ml DAILY GT 04/14/19 09:00 05/14/19 08:59 04/26/19 09:12 Bg Moffett MD Apr 26, 2019 12:56
--- NOTE | 2019-04-26 13:40 | General Progress Note ---
Assessment/Plan Problem List: (1) Seizure ICD Codes: R56.9 - Unspecified convulsions SNOMED: 33705565 (2) Anemia ICD Codes: D64.9 - Anemia, unspecified SNOMED: 219705129 Qualifiers: Qualified Codes: D64.9 - Anemia, unspecified (3) Sepsis ICD Codes: A41.9 - Sepsis, unspecified organism SNOMED: 56209502, 449195772 Qualifiers: Qualified Codes: A41.9 - Sepsis, unspecified organism (4) Respiratory failure with hypoxia ICD Codes: J96.91 - Respiratory failure, unspecified with hypoxia SNOMED: 79957535244806982 Qualifiers: Qualified Codes: J96.21 - Acute and chronic respiratory failure with hypoxia (5) HCAP (healthcare-associated pneumonia) ICD Codes: J18.9 - Pneumonia, unspecified organism SNOMED: 014393393, 166614579 (6) Sacral decubitus ulcer ICD Codes: L89.159 - Pressure ulcer of sacral region, unspecified stage SNOMED: 229086139 (7) HTN (hypertension) ICD Codes: I10 - Essential (primary) hypertension SNOMED: 55286376 (8) Chronic vegetative state ICD Codes: R40.3 - Persistent vegetative state SNOMED: 02300566 (9) Chronic respiratory failure ICD Codes: J96.10 - Chronic respiratory failure, unspecified whether with hypoxia or hypercapnia SNOMED: 09987163 (10) Limited mobility ICD Codes: Z74.09 - Other reduced mobility SNOMED: 6570391 Status: stable, progressing Assessment/Plan: vent as needed resp rx suctioning j tube feeds g port to gravity skin care sz rx check labs/monitor Na level bowel regime dc planning Subjective ROS Limited/Unobtainable: Yes Constitutional: Reports: malaise, weakness HEENT: Reports: no symptoms Cardiovascular: Reports: no symptoms Respiratory: Reports: cough, shortness of breath, sputum Gastrointestinal/Abdominal: Reports: difficulty swallowing Genitourinary: Reports: no symptoms Neurologic/Psychiatric: Reports: pre-existing deficit, seizure Endocrine: Reports: no symptoms Hematologic/Lymphatic: Reports: anemia Allergies: Coded Allergies: CODEINE (Verified Allergy, Unknown, HIVES, 09/15/09) All Systems: reviewed and negative except above Subjective no events. no reports of bleeding. tolerating feeds, no vomiting. minimal secretions. no szs Objective Last 24 Hour Vital Signs Date Time Temp Pulse Resp B/P (MAP) Pulse Ox O2 Delivery O2 Flow Rate FiO2 04/26/19 13:00 95 28 106/38 (60) 96 04/26/19 12:47 96 T-Piece 6.0 28 04/26/19 12:00 T-piece 5.0 T-piece 5.0 T-piece 5.0 04/26/19 12:00 97 04/26/19 12:00 98.3 102 30 108/44 (65) 95 04/26/19 12:00 5.0 28 04/26/19 11:00 108 31 119/49 (72) 94 04/26/19 10:50 102 32 96 T-Piece 6.0 28 108 26 92 04/26/19 10:00 98 32 128/53 (78) 92 04/26/19 09:00 T-piece 5.0 T-piece 5.0 T-piece 5.0 04/26/19 09:00 96 28 113/43 (66) 97 04/26/19 08:00 5.0 28 04/26/19 08:00 98.5 100 27 114/45 (68) 96 04/26/19 08:00 101 04/26/19 07:05 120 20 98 T-Piece 6.0 28 97 19 98 04/26/19 07:01 99 T-Piece 6.0 28 04/26/19 07:00 93 29 122/28 (59) 97 04/26/19 06:00 86 25 122/33 (62) 98 04/26/19 05:00 85 25 105/48 (67) 96 04/26/19 04:00 T-piece 5.0 T-piece 5.0 04/26/19 04:00 98.6 80 27 118/78 (91) 99 04/26/19 04:00 85 04/26/19 04:00 5.0 28 04/26/19 03:59 84 20 100 T-Piece 6.0 28 80 20 99 04/26/19 03:00 85 26 121/34 (63) 98 04/26/19 02:00 86 27 115/33 (60) 98 04/26/19 01:02 98 T-Piece 6.0 28 04/26/19 01:00 86 27 109/42 (64) 96 04/26/19 01:00 86 27 109/42 (64) 96 04/26/19 00:30 85 27 109/45 (66) 97 04/26/19 00:00 85 26 103/43 (63) 96 04/26/19 00:00 T-piece 5.0 T-piece 5.0 04/26/19 00:00 86 04/26/19 00:00 98.2 85 26 103/43 (63) 96 04/26/19 00:00 5.0 28 04/25/19 23:00 83 27 104/36 (58) 99 04/25/19 22:50 86 20 99 T-Piece 6.0 28 84 20 98 04/25/19 22:00 85 26 104/42 (62) 97 04/25/19 21:00 85 28 112/41 (64) 98 04/25/19 20:00 98.5 86 26 114/50 (71) 96 04/25/19 20:00 T-piece 5.0 T-piece 5.0 04/25/19 20:00 86 04/25/19 20:00 5.0 28 04/25/19 19:20 98 T-Piece 6.0 28 04/25/19 19:17 84 20 99 T-Piece 6.0 28 82 20 98 04/25/19 19:00 83 27 116/44 (68) 97 04/25/19 18:00 92 24 86/69 (75) 98 04/25/19 17:00 86 28 118/43 (68) 97 04/25/19 16:19 85 04/25/19 16:00 T-piece 5.0 T-piece 5.0 04/25/19 16:00 98.5 87 29 109/39 (62) 97 04/25/19 16:00 5.0 28 04/25/19 15:00 90 30 111/44 (66) 97 04/25/19 14:00 87 27 125/44 (71) 97 Intake and Output 04/25/19 04/26/19 19:00 07:00 Intake Total 1120 ml 1320 ml Output Total 600 ml 1050 ml Balance 520 ml 270 ml Free Water 200 ml 300 ml Tube Feeding 720 ml 720 ml Other 200 ml 300 ml Output Urine Total 400 ml 800 ml Gastric Drainage Total 250 ml Other 200 ml Laboratory Tests 04/26/19 04:00: White Blood Count 10.8, Red Blood Count 3.19L, Hemoglobin 9.5L, Hematocrit 28.5L , Mean Corpuscular Volume 89, Mean Corpuscular Hemoglobin 29.8, Mean Corpuscular Hemoglobin Concent 33.3, Red Cell Distribution Width 14.3, Platelet Count 216, Mean Platelet Volume 5.7L, Neutrophils (%) (Auto) 53.5, Lymphocytes ( %) (Auto) 36.4, Monocytes (%) (Auto) 6.1, Eosinophils (%) (Auto) 3.4H, Basophils (%) (Auto) 0.6, Sodium Level 143, Potassium Level 4.8, Chloride Level 108H, Carbon Dioxide Level 27, Anion Gap 8, Blood Urea Nitrogen 72H, Creatinine 1.1, Estimat Glomerular Filtration Rate , Glucose Level 103, Calcium Level 9.1, Phosphorus Level 4.2, Magnesium Level 2.7H, Iron Level 137, Total Iron Binding Capacity 226L, Percent Iron Saturation 61H, Unsaturated Iron Binding 89L, Ferritin 966H, Total Bilirubin 0.2, Direct Bilirubin < 0.1, Aspartate Amino Transf (AST/SGOT) 88H, Alanine Aminotransferase (ALT/SGPT) 188H, Alkaline Phosphatase 190H, Total Protein 8.7H, Albumin 3.1L Height (Feet): 5 Height (Inches): 3.00 Weight (Pounds): 130 Objective General Appearance: WD/WN, confused. on trach collar Neck: supple Cardiovascular: normal rate, regular rhythm Respiratory/Chest: chest wall non-tender, rhonchi - bilaterally(minimal) Abdomen: normal bowel sounds, non tender, soft, no organomegaly Edema: no edema noted Arm (L), no edema noted Arm (R), no edema noted Leg (L), no edema noted Leg (R), no edema noted Pedal (L), no edema noted Pedal (R), no edema noted Generalized Neurologic: disoriented, unresponsive, aphasia Irvin Beltrán MD Apr 26, 2019 13:40
--- NOTE | 2019-04-26 14:00 | NUR ---
NURSE NOTES: 1 semi-solid brown BM noted, pt cleaned, suctioned and repositioned. Wound care completed. Trache and GT dressings changed. No skin alterations noted to tracheostomy or GT sites. Pt tolerated procedure, no acute distress noted. Bed in lowest position, alarm on, side rails up x 2, call light within reach. Will continue to monitor.
--- NOTE | 2019-04-26 16:00 | NUR ---
NURSE NOTES: Pt suctioned endotracheally, oral care performed. GT and JT flushed with 100 cc H20 each. Pt repositioned. Axillary temp 98.5 F. No acute distress noted. Pt noted clenching teeth and opening eyes when performing oral care. Pt does not open eyes spontaneously or follow commands, mental status unchanged.
--- NOTE | 2019-04-26 18:00 | NUR ---
NURSE NOTES: Pt repositioned, in no acute distress. atropine given sublingually. Pt suctioned. Gastric drainage bag emptied and noted with 500 cc of yellow drainage. VS noted stable and charted. Will continue to monitor.
--- NOTE | 2019-04-26 19:16 | NUR ---
HAND-OFF: Report given to JEANNINE Church. Pt in no acute distress.
--- NOTE | 2019-04-26 19:17 | NUR ---
NURSE NOTES: Endorsement received from JEANNINE Delgado. Patient obtunded. Sinus rhythm on the monitor. Shiley 6.0, receiving oxygen per T piece 28%. Right upper arm PICC. With GJ tube. G tube connected to drainable bag per gravity. J tube receiving feeding of Vital AF 60ml/hr. Purewick in place. Head of bed elevated. Bed locked and in low position. Call light within reach. Bed alarm on
[2019-04-26] MEDS: Dyna-Hex 2% Top Sol 2oz TOPIC SCH (19:50)
--- NOTE | 2019-04-26 22:00 | NUR ---
NURSE NOTES: Repositioned Q2 and as needed. Secretions suctioned, scant white secretions noted
[2019-04-27] VITALS (25 sets, daily range): BP systolic 111–160; BP diastolic 46–68
--- NOTE | 2019-04-27 | NUR ---
NURSE NOTES: Patient asleep. Opens eyes, does not track. No signs of pain or discomfort. Sinus rhythm on the monitor. No shortness of breath.
--- NOTE | 2019-04-27 03:00 | NUR ---
NURSE NOTES: Patient asleep. G tube draining well per gravity, with yellowish thick output noted.
[2019-04-27] MEDS: Albuterol/Ipratropium 3ml neb HHN SCH ×5 (03:27→20:33)
--- NOTE | 2019-04-27 05:00 | NUR ---
NURSE NOTES: Bed bath, oral care, change of linens done.
--- NOTE | 2019-04-27 05:30 | Progress Note ---
DATE: 04/25/2019 CARDIOLOGY PROGRESS NOTE SUBJECTIVE: Remains on T-tube. No respiratory distress. Vitals are stable. Blood pressure parameters stable. Heart rate controlled. Monitored rhythm, sinus. No significant ectopy. OBJECTIVE: LUNGS: Good breath sounds. HEART: Regular rhythm and rate. Normal S1, S2. ABDOMEN: Soft. GJ tube intact. EXTREMITIES: Trace edema. IMPRESSION: 1. Stable cardiovascular parameters. 2. Improved pulmonary status. 3. Transaminitis persisting, but asymptomatic. 4. Protein-calorie malnutrition, corrected. 5. The patient is not tolerating nutrition by J-tube. 6. Prerenal azotemia. PLAN: 1. Await placement. 2. Continue current medication regimen. 3. Maintain adequate hydration. 4. Step-down unit level of care. Bg Hagen M.D. DR: Deb JOB#: [id number] CC:
--- NOTE | 2019-04-27 05:45 | Progress Note ---
DATE: 04/26/2019 CARDIOLOGY PROGRESS NOTE SUBJECTIVE: Status reviewed. No interval change. Monitored, sinus. OBJECTIVE: LUNGS: With good breath sounds. The patient on T-tube. ABDOMEN: GJ tube intact. CARDIAC: Regular with no new murmur. EXTREMITIES: With no edema. NEUROLOGIC: The patient remains in baseline unresponsive state. LABORATORY DATA: Notable for white count 10.8, hemoglobin 9.5. BUN 72, creatinine 1.1. LFTs notable for AST and ALT 88/188 and alkaline phosphatase of 190. Albumin 3.1. IMPRESSION: Unchanged. PLAN: 1. Continue efforts to determine etiology for transaminitis. 2. Consider adjustment of feeding formulation due to worsening azotemia. 3. Continue antiseizure therapy. 4. No additional cardiovascular medications presently indicated. Bg Hagen M.D. DR: Deb JOB#: [id number] CC:
--- NOTE | 2019-04-27 07:00 | NUR ---
HAND-OFF: Report given to JEANNINE Connelly.
--- NOTE | 2019-04-27 08:00 | NUR ---
NURSE NOTES: Received patient on 28% t-tube Sao2 98-100 % - no resp. distress noted. V/S stable media monitor shows SR no ectopy noted. PICC patent @ JOSY . Pure Wick in place- with moderate amt. of urine
--- NOTE | 2019-04-27 08:30 | Pulmonology Progress Note ---
Assessment/Plan Assessment/Plan Impression: history of Sepsis history of Pneumonia Trach, G tube, Hypertension, Cardiac disease, Dementia, Previous CVA, Seizure disorder, Respiratory failure with hypoxia Anemia, Sacral ulcer renal cyst chronic pulmonary congestion Plan monitor as is continue with respiratory care monitor protein levels monitor labs and reflux aspiration elevate head and monitor secretions DNR. No CPR. ICU care reviewed meds noted off load as able nutrition/fees/ dietary skin care difficulty with placement monitor residual and reflux aspiration all changes noted and discussed chronic management reviewed medications/laboratory data/nursing notes/ICU care reviewed in detail note reviewed and edited care discussed with RN and RT Subjective ROS Limited/Unobtainable: Yes Allergies: Coded Allergies: CODEINE (Verified Allergy, Unknown, HIVES, 09/15/09) Subjective overnight events noted; weekend care reviewed d/w all ICU care issues discussed bed bound and obtunded discussed with primary Objective Last 24 Hour Vital Signs Date Time Temp Pulse Resp B/P (MAP) Pulse Ox O2 Delivery O2 Flow Rate FiO2 04/27/19 08:00 T-piece 5.0 T-piece 5.0 T-piece 5.0 04/27/19 08:00 87 04/27/19 08:00 85 21 138/50 (79) 98 04/27/19 08:00 5.0 28 04/27/19 07:17 85 24 100 T-Piece 6.0 28 91 21 98 04/27/19 07:17 100 T-Piece 6.0 28 04/27/19 07:00 97.6 82 20 154/68 (96) 100 04/27/19 06:00 84 22 133/59 (83) 98 04/27/19 05:00 86 23 141/55 (83) 97 04/27/19 04:00 86 04/27/19 04:00 5.0 28 04/27/19 04:00 98.3 89 25 121/63 (82) 98 04/27/19 04:00 T-piece 5.0 T-piece 5.0 T-piece 5.0 04/27/19 03:27 82 20 99 T-Piece 6.0 28 80 20 97 04/27/19 03:00 81 25 123/46 (71) 97 04/27/19 02:00 85 23 130/56 (80) 97 04/27/19 01:20 98 T-Piece 6.0 28 04/27/19 01:00 82 25 115/47 (69) 97 04/27/19 00:00 84 04/27/19 00:00 T-piece 5.0 T-piece 5.0 T-piece 5.0 04/27/19 00:00 98.5 84 23 119/47 (71) 96 04/27/19 00:00 5.0 28 04/26/19 23:07 88 20 99 T-Piece 6.0 28 85 20 97 04/26/19 23:00 81 24 117/50 (72) 96 04/26/19 22:30 81 25 120/48 (72) 96 04/26/19 22:00 82 22 116/51 (72) 96 04/26/19 21:30 84 26 122/49 (73) 97 04/26/19 21:00 85 23 113/47 (69) 96 04/26/19 20:30 87 24 121/51 (74) 96 04/26/19 20:00 5.0 28 04/26/19 20:00 98.6 88 24 127/48 (74) 97 04/26/19 20:00 T-piece 5.0 T-piece 5.0 T-piece 5.0 04/26/19 20:00 84 04/26/19 19:10 83 20 100 T-Piece 6.0 28 80 20 99 04/26/19 19:10 99 T-Piece 6.0 28 04/26/19 19:00 89 25 134/59 (84) 97 04/26/19 18:00 83 23 119/52 (74) 98 04/26/19 17:00 84 24 132/52 (78) 99 04/26/19 16:00 85 04/26/19 16:00 T-piece 5.0 T-piece 5.0 T-piece 5.0 04/26/19 16:00 98.5 89 25 126/59 (81) 97 04/26/19 16:00 5.0 28 04/26/19 15:00 89 22 115/55 (75) 98 04/26/19 14:39 90 23 99 T-Piece 6.0 28 89 22 98 04/26/19 14:00 92 27 109/50 (69) 97 04/26/19 13:00 95 28 106/38 (60) 96 04/26/19 12:47 96 T-Piece 6.0 28 04/26/19 12:00 T-piece 5.0 T-piece 5.0 T-piece 5.0 04/26/19 12:00 97 04/26/19 12:00 98.3 102 30 108/44 (65) 95 04/26/19 12:00 5.0 28 04/26/19 11:00 108 31 119/49 (72) 94 04/26/19 10:50 102 32 96 T-Piece 6.0 28 108 26 92 04/26/19 10:00 98 32 128/53 (78) 92 04/26/19 09:00 T-piece 5.0 T-piece 5.0 T-piece 5.0 04/26/19 09:00 96 28 113/43 (66) 97 Intake and Output 04/26/19 04/27/19 19:00 07:00 Intake Total 1320 ml 1260 ml Output Total 750 ml 500 ml Balance 570 ml 760 ml Free Water 300 ml 300 ml Tube Feeding 720 ml 660 ml Other 300 ml 300 ml Output Urine Total 250 ml Gastric Drainage Total 500 ml 500 ml # Bowel Movements 2 Objective WDWN NAD contracted off vent reduced breath sounds bilaterally without rhonchi or wheeze [id number] without MRG NABS nontender no HSM no CC trace edema same nonfocal nonverbal trach and gt reviewed and edited Current Medications Medications (Trade) Dose Ordered Sig/Maicol Route PRN Reason Start Time Stop Time Status Last Admin Dose Admin Albuterol/ Ipratropium (Albuterol/ Ipratropium) 3 ml Q4HRT HHN 04/25/19 19:00 04/30/19 18:59 04/27/19 07:18 Atropine Sulfate (Atropine Opth Adriana) 1 drop THREE TIMES A DAY SL 04/08/19 09:00 05/07/19 20:59 04/26/19 17:47 Chlorhexidine Gluconate (Cesilia-Hex 2%) 1 applic DAILY@1999 TOPIC 04/12/19 20:00 05/12/19 19:59 04/26/19 19:50 Heparin Sodium (Porcine) (Heparin 5000 units/ml) 5,000 units EVERY 12 HOURS SUBQ 04/01/19 10:00 05/01/19 09:59 04/26/19 21:29 Hydralazine HCl (Apresoline) 25 mg Q6H PRN ORAL SBP above 150 04/06/19 02:45 05/06/19 02:44 04/06/19 11:15 Levetiracetam (Keppra) 750 mg Q12HR GT 04/07/19 21:00 05/07/19 20:59 04/26/19 21:28 Sorbitol (Sorbitol) 30 ml BIDPRN PRN ORAL Constipation 04/13/19 11:15 05/13/19 11:14 Sorbitol (sorbitoL) 30 ml DAILY GT 04/14/19 09:00 05/14/19 08:59 04/26/19 09:12 Amaury Chan MD Apr 27, 2019 08:30
--- NOTE | 2019-04-27 08:30 | NUR ---
NURSE NOTES: Suctioned moderate amt. of frothy/white color secretion from tjhe trach - with fair clearing
[2019-04-27] MEDS: Sorbitol Solution UD 30ml GT SCH (08:39)
[2019-04-27] MEDS: Heparin 5000 units/ml inj SUBQ SCH ×2 (08:41→20:05)
--- NOTE | 2019-04-27 09:48 | Infectious Diseases Prog Note ---
Assessment/Plan Assessment/Plan A 1. Providencia & Klebsiella pneumonia treated 2. respiratory failure 3. hypertension 4. CVA 5. dementia 6. sacral decubitus ulcer 7. rectal VRE colonization 8. Anemia 9. Proteus UTI 10. Acute renal failure 11. Leukocytosis resolved P 1.Observe off antibiotic 2. Frequent suctioning 3. Remove PICC line before discharge Subjective ROS Limited/Unobtainable: Yes Constitutional: Denies: fever Allergies: Coded Allergies: CODEINE (Verified Allergy, Unknown, HIVES, 09/15/09) Objective Vital Signs Last 24 Hour Vital Signs Date Time Temp Pulse Resp B/P (MAP) Pulse Ox O2 Delivery O2 Flow Rate FiO2 04/27/19 08:00 T-piece 5.0 T-piece 5.0 T-piece 5.0 04/27/19 08:00 87 04/27/19 08:00 85 21 138/50 (79) 98 04/27/19 08:00 5.0 28 04/27/19 07:17 85 24 100 T-Piece 6.0 28 91 21 98 04/27/19 07:17 100 T-Piece 6.0 28 04/27/19 07:00 97.6 82 20 154/68 (96) 100 04/27/19 06:00 84 22 133/59 (83) 98 04/27/19 05:00 86 23 141/55 (83) 97 04/27/19 04:00 86 04/27/19 04:00 5.0 28 04/27/19 04:00 98.3 89 25 121/63 (82) 98 04/27/19 04:00 T-piece 5.0 T-piece 5.0 T-piece 5.0 04/27/19 03:27 82 20 99 T-Piece 6.0 28 80 20 97 04/27/19 03:00 81 25 123/46 (71) 97 04/27/19 02:00 85 23 130/56 (80) 97 04/27/19 01:20 98 T-Piece 6.0 28 04/27/19 01:00 82 25 115/47 (69) 97 04/27/19 00:00 84 04/27/19 00:00 T-piece 5.0 T-piece 5.0 T-piece 5.0 04/27/19 00:00 98.5 84 23 119/47 (71) 96 04/27/19 00:00 5.0 28 04/26/19 23:07 88 20 99 T-Piece 6.0 28 85 20 97 04/26/19 23:00 81 24 117/50 (72) 96 04/26/19 22:30 81 25 120/48 (72) 96 04/26/19 22:00 82 22 116/51 (72) 96 04/26/19 21:30 84 26 122/49 (73) 97 04/26/19 21:00 85 23 113/47 (69) 96 04/26/19 20:30 87 24 121/51 (74) 96 04/26/19 20:00 5.0 28 04/26/19 20:00 98.6 88 24 127/48 (74) 97 04/26/19 20:00 T-piece 5.0 T-piece 5.0 T-piece 5.0 04/26/19 20:00 84 04/26/19 19:10 83 20 100 T-Piece 6.0 28 80 20 99 04/26/19 19:10 99 T-Piece 6.0 28 04/26/19 19:00 89 25 134/59 (84) 97 04/26/19 18:00 83 23 119/52 (74) 98 04/26/19 17:00 84 24 132/52 (78) 99 04/26/19 16:00 85 04/26/19 16:00 T-piece 5.0 T-piece 5.0 T-piece 5.0 04/26/19 16:00 98.5 89 25 126/59 (81) 97 04/26/19 16:00 5.0 28 04/26/19 15:00 89 22 115/55 (75) 98 04/26/19 14:39 90 23 99 T-Piece 6.0 28 89 22 98 04/26/19 14:00 92 27 109/50 (69) 97 04/26/19 13:00 95 28 106/38 (60) 96 04/26/19 12:47 96 T-Piece 6.0 28 04/26/19 12:00 T-piece 5.0 T-piece 5.0 T-piece 5.0 04/26/19 12:00 97 04/26/19 12:00 98.3 102 30 108/44 (65) 95 04/26/19 12:00 5.0 28 04/26/19 11:00 108 31 119/49 (72) 94 04/26/19 10:50 102 32 96 T-Piece 6.0 28 108 26 92 04/26/19 10:00 98 32 128/53 (78) 92 Height (Feet): 5 Height (Inches): 3.00 Weight (Pounds): 130 HEENT: status post trach Respiratory/Chest: lungs clear, other - Copious secretions in T bar Cardiovascular: normal rate, other - R arm PICC line Abdomen: soft, non tender, other - GT feeding Extremities: no edema Skin: ulcers Neurologic/Psychiatric: unresponsiveness, aphasia Current Medications Medications (Trade) Dose Ordered Sig/Maicol Route PRN Reason Start Time Stop Time Status Last Admin Dose Admin Albuterol/ Ipratropium (Albuterol/ Ipratropium) 3 ml Q4HRT HHN 04/25/19 19:00 04/30/19 18:59 04/27/19 07:18 Atropine Sulfate (Atropine Opth Adriana) 1 drop THREE TIMES A DAY SL 04/08/19 09:00 05/07/19 20:59 04/27/19 08:40 Chlorhexidine Gluconate (Cesilia-Hex 2%) 1 applic DAILY@1999 TOPIC 04/12/19 20:00 05/12/19 19:59 04/26/19 19:50 Heparin Sodium (Porcine) (Heparin 5000 units/ml) 5,000 units EVERY 12 HOURS SUBQ 04/01/19 10:00 05/01/19 09:59 04/27/19 08:41 Hydralazine HCl (Apresoline) 25 mg Q6H PRN ORAL SBP above 150 04/06/19 02:45 05/06/19 02:44 04/06/19 11:15 Levetiracetam (Keppra) 750 mg Q12HR GT 04/07/19 21:00 05/07/19 20:59 04/27/19 08:40 Sorbitol (Sorbitol) 30 ml BIDPRN PRN ORAL Constipation 04/13/19 11:15 05/13/19 11:14 Sorbitol (sorbitoL) 30 ml DAILY GT 04/14/19 09:00 05/14/19 08:59 04/27/19 08:39 Chauncey Liriano MD Apr 27, 2019 09:48
--- NOTE | 2019-04-27 10:00 | NUR ---
NURSE NOTES: Had large soft BM - brownish in color-complete bed vbath rendered
--- NOTE | 2019-04-27 10:15 | NUR ---
NURSE NOTES: Suctioned large amt. of whitish secretions from Trach- with fair clearing
--- NOTE | 2019-04-27 12:30 | NUR ---
NURSE NOTES: Pt received from JEANNINE Connelly without cardiopulmonary distress noted. Pt is asleep in bed, does not respond to voice or open eyes spontaneously, pupils are equal and round 4mm and sluggish to light reaction, pt opens eyes with touch or shaking but not to voice. Pt exhibits intact gag response when suctioned endotracheally. Pt is SR to campus monitor. radial and dorsalis pedis pulses palpable 2+ bilaterally. cap refill 3 sec. Pt noted with T-piece on 5L O2 with FiO2 28%. lung sounds noted diminished in lower bilateral lobes. Fine crackles upon exhalation noted to bilateral upper lobes. GT noted with dry and intact dressing hooked to drainage bag with thick yellow gastric secretions. JT running Vital AF 1.2 at 60 cc/hr. no nausea or vomiting noted. abd noted round, soft, with active bowel sounds to all quadrants. Purewick noted draining yellow urine. Skin alterations noted. Pt has a JOSY PICC with dry and intact dressing running NS TKO at 5 cc/hr. Bed in lowest position, alarm on, side rails up x 2 and padded per seizure precaution, call light within reach, will continue to monitor.
--- NOTE | 2019-04-27 13:30 | Nephrology Progress Note ---
Assessment/Plan Problem List: (1) Acute renal failure (ARF) Assessment: Cr stable (2) Chronic respiratory failure (3) Anemia (4) Sepsis Assessment Acute renal failure Respiratory failure - Trach Low Mag- Low k , Low Na Anemia UTI / Sepsis Proteinuria / HypoAlbuminemia high Trigs Sz decubs bed bound DNR Plan checked labs Transfused previously now has JT bolus Albumin as needed K and Mag and Phos supplement as needed Hydrate as needed Urine studies avoid Nephrotoxics mag K Phos supplements as needed monitor renal parameters Subjective ROS Limited/Unobtainable: Yes Objective Objective Last 24 Hour Vital Signs Date Time Temp Pulse Resp B/P (MAP) Pulse Ox O2 Delivery O2 Flow Rate FiO2 04/27/19 13:00 99 T-Piece 6.0 28 04/27/19 12:00 28 04/27/19 12:00 98.5 84 22 132/59 (83) 99 04/27/19 12:00 78 04/27/19 12:00 T-piece 5.0 T-piece 5.0 T-piece 5.0 04/27/19 11:53 90 22 100 T-Piece 6.0 28 82 20 99 04/27/19 11:00 82 23 117/58 (77) 98 04/27/19 10:00 82 24 134/60 (84) 98 04/27/19 09:00 87 19 160/63 (95) 98 04/27/19 08:00 T-piece 5.0 T-piece 5.0 T-piece 5.0 04/27/19 08:00 87 04/27/19 08:00 85 21 138/50 (79) 98 04/27/19 08:00 5.0 28 04/27/19 07:17 85 24 100 T-Piece 6.0 28 91 21 98 04/27/19 07:17 100 T-Piece 6.0 28 04/27/19 07:00 97.6 82 20 154/68 (96) 100 04/27/19 06:00 84 22 133/59 (83) 98 04/27/19 05:00 86 23 141/55 (83) 97 04/27/19 04:00 86 04/27/19 04:00 5.0 28 04/27/19 04:00 98.3 89 25 121/63 (82) 98 04/27/19 04:00 T-piece 5.0 T-piece 5.0 T-piece 5.0 04/27/19 03:27 82 20 99 T-Piece 6.0 28 80 20 97 04/27/19 03:00 81 25 123/46 (71) 97 04/27/19 02:00 85 23 130/56 (80) 97 04/27/19 01:20 98 T-Piece 6.0 28 04/27/19 01:00 82 25 115/47 (69) 97 04/27/19 00:00 84 04/27/19 00:00 T-piece 5.0 T-piece 5.0 T-piece 5.0 04/27/19 00:00 98.5 84 23 119/47 (71) 96 04/27/19 00:00 5.0 28 04/26/19 23:07 88 20 99 T-Piece 6.0 28 85 20 97 04/26/19 23:00 81 24 117/50 (72) 96 04/26/19 22:30 81 25 120/48 (72) 96 04/26/19 22:00 82 22 116/51 (72) 96 04/26/19 21:30 84 26 122/49 (73) 97 04/26/19 21:00 85 23 113/47 (69) 96 04/26/19 20:30 87 24 121/51 (74) 96 04/26/19 20:00 5.0 28 04/26/19 20:00 98.6 88 24 127/48 (74) 97 04/26/19 20:00 T-piece 5.0 T-piece 5.0 T-piece 5.0 04/26/19 20:00 84 04/26/19 19:10 83 20 100 T-Piece 6.0 28 80 20 99 04/26/19 19:10 99 T-Piece 6.0 28 04/26/19 19:00 89 25 134/59 (84) 97 04/26/19 18:00 83 23 119/52 (74) 98 04/26/19 17:00 84 24 132/52 (78) 99 04/26/19 16:00 85 04/26/19 16:00 T-piece 5.0 T-piece 5.0 T-piece 5.0 04/26/19 16:00 98.5 89 25 126/59 (81) 97 04/26/19 16:00 5.0 28 04/26/19 15:00 89 22 115/55 (75) 98 04/26/19 14:39 90 23 99 T-Piece 6.0 28 89 22 98 04/26/19 14:00 92 27 109/50 (69) 97 Intake and Output 04/26/19 04/27/19 19:00 07:00 Intake Total 1320 ml 1260 ml Output Total 750 ml 500 ml Balance 570 ml 760 ml Free Water 300 ml 300 ml Tube Feeding 720 ml 660 ml Other 300 ml 300 ml Output Urine Total 250 ml Gastric Drainage Total 500 ml 500 ml # Bowel Movements 2 Current Medications Medications (Trade) Dose Ordered Sig/Maicol Route PRN Reason Start Time Stop Time Status Last Admin Dose Admin Albuterol/ Ipratropium (Albuterol/ Ipratropium) 3 ml Q4HRT HHN 04/25/19 19:00 04/30/19 18:59 04/27/19 11:52 Atropine Sulfate (Atropine Opth Adriana) 1 drop THREE TIMES A DAY SL 04/08/19 09:00 05/07/19 20:59 04/27/19 08:40 Chlorhexidine Gluconate (Cesilia-Hex 2%) 1 applic DAILY@1999 TOPIC 04/12/19 20:00 05/12/19 19:59 04/26/19 19:50 Heparin Sodium (Porcine) (Heparin 5000 units/ml) 5,000 units EVERY 12 HOURS SUBQ 04/01/19 10:00 05/01/19 09:59 04/27/19 08:41 Hydralazine HCl (Apresoline) 25 mg Q6H PRN ORAL SBP above 150 04/06/19 02:45 05/06/19 02:44 04/06/19 11:15 Levetiracetam (Keppra) 750 mg Q12HR GT 04/07/19 21:00 05/07/19 20:59 04/27/19 08:40 Sorbitol (Sorbitol) 30 ml BIDPRN PRN ORAL Constipation 04/13/19 11:15 05/13/19 11:14 Sorbitol (sorbitoL) 30 ml DAILY GT 04/14/19 09:00 05/14/19 08:59 04/27/19 08:39 Height (Feet): 5 Height (Inches): 3.00 Weight (Pounds): 130 General Appearance: no apparent distress EENT: other - trach to O2 Cardiovascular: normal rate Respiratory/Chest: decreased breath sounds Abdomen: soft Objective no change Eric Cortez MD Apr 27, 2019 13:30
--- NOTE | 2019-04-27 13:45 | NUR ---
MOCK UP [employer]ER SI: RESP FAILURE TRACH/COOL AEROSOL T. 98.5 HR 84 RR 22 B/P 132/59 TRACH FIO2 28% IS: KEPPRA GT HEPARIN SUBC SORBITOL GT ALB HHN PLACEMENT PENDING ICU STATUS
--- NOTE | 2019-04-27 14:00 | NUR ---
NURSE NOTES: Pt repositioned, no acute distress noted. Colby continue to monitor. Addendum: 04/27/19 at 1822 by Sandy Chi RN Late entry: GT and JT both flushed with 100 cc H20 each.
--- NOTE | 2019-04-27 14:47 | Surgery Progress Note ---
Surgery Progress Note Subjective Additional Comments no acute events Objective Last 24 Hour Vital Signs Date Time Temp Pulse Resp B/P (MAP) Pulse Ox O2 Delivery O2 Flow Rate FiO2 04/27/19 14:00 83 23 148/57 (87) 98 04/27/19 13:00 86 22 133/57 (82) 99 04/27/19 13:00 99 T-Piece 6.0 28 04/27/19 12:00 28 04/27/19 12:00 98.5 84 22 132/59 (83) 99 04/27/19 12:00 78 04/27/19 12:00 T-piece 5.0 T-piece 5.0 T-piece 5.0 04/27/19 11:53 90 22 100 T-Piece 6.0 28 82 20 99 04/27/19 11:00 82 23 117/58 (77) 98 04/27/19 10:00 82 24 134/60 (84) 98 04/27/19 09:00 87 19 160/63 (95) 98 04/27/19 08:00 T-piece 5.0 T-piece 5.0 T-piece 5.0 04/27/19 08:00 87 04/27/19 08:00 85 21 138/50 (79) 98 04/27/19 08:00 5.0 28 04/27/19 07:17 85 24 100 T-Piece 6.0 28 91 21 98 04/27/19 07:17 100 T-Piece 6.0 28 04/27/19 07:00 97.6 82 20 154/68 (96) 100 04/27/19 06:00 84 22 133/59 (83) 98 04/27/19 05:00 86 23 141/55 (83) 97 04/27/19 04:00 86 04/27/19 04:00 5.0 28 04/27/19 04:00 98.3 89 25 121/63 (82) 98 04/27/19 04:00 T-piece 5.0 T-piece 5.0 T-piece 5.0 04/27/19 03:27 82 20 99 T-Piece 6.0 28 80 20 97 04/27/19 03:00 81 25 123/46 (71) 97 04/27/19 02:00 85 23 130/56 (80) 97 04/27/19 01:20 98 T-Piece 6.0 28 04/27/19 01:00 82 25 115/47 (69) 97 04/27/19 00:00 84 04/27/19 00:00 T-piece 5.0 T-piece 5.0 T-piece 5.0 04/27/19 00:00 98.5 84 23 119/47 (71) 96 04/27/19 00:00 5.0 28 04/26/19 23:07 88 20 99 T-Piece 6.0 28 85 20 97 04/26/19 23:00 81 24 117/50 (72) 96 04/26/19 22:30 81 25 120/48 (72) 96 04/26/19 22:00 82 22 116/51 (72) 96 04/26/19 21:30 84 26 122/49 (73) 97 04/26/19 21:00 85 23 113/47 (69) 96 04/26/19 20:30 87 24 121/51 (74) 96 04/26/19 20:00 5.0 28 04/26/19 20:00 98.6 88 24 127/48 (74) 97 04/26/19 20:00 T-piece 5.0 T-piece 5.0 T-piece 5.0 04/26/19 20:00 84 04/26/19 19:10 83 20 100 T-Piece 6.0 28 80 20 99 04/26/19 19:10 99 T-Piece 6.0 28 04/26/19 19:00 89 25 134/59 (84) 97 04/26/19 18:00 83 23 119/52 (74) 98 04/26/19 17:00 84 24 132/52 (78) 99 04/26/19 16:00 85 04/26/19 16:00 T-piece 5.0 T-piece 5.0 T-piece 5.0 04/26/19 16:00 98.5 89 25 126/59 (81) 97 04/26/19 16:00 5.0 28 04/26/19 15:00 89 22 115/55 (75) 98 I&O Intake and Output 04/26/19 04/27/19 19:00 07:00 Intake Total 1320 ml 1260 ml Output Total 750 ml 500 ml Balance 570 ml 760 ml Free Water 300 ml 300 ml Tube Feeding 720 ml 660 ml Other 300 ml 300 ml Output Urine Total 250 ml Gastric Drainage Total 500 ml 500 ml # Bowel Movements 2 Dressing: other Wound: other Drains: other Cardiovascular: RSR Respiratory: decreased breath sounds Abdomen: soft, present bowel sounds Extremities: no cyanosis Plan Problems: (1) Sacral decubitus ulcer Assessment & Plan: This is a 83-year-old female with multiple medical committees that is currently admitted for medical care and management and identified to have multiple wounds requiring care. On admission patient noted to have a resolved sacral decubitus ulcer. Has had prior care and is well-healed at this time. Will ensure it does not open up again. Patient has a right ischial decubitus ulcer that is resolved. Scar intact and well formed. Will monitor to ensure it does not open up again. Patient has a left ischial decubitus ulcer that can be identified to be stage IV with palpable bone that has been resolving as noted by the periwound tissue and scar but open area approximately 1 cm x 1.5 cm few millimeters deep to bone identified. Unsure if this is been to be completely healed prior and has since opened or if has been healing at this level. No foul odor no drainage was unsure local wound care until healed Bilateral heels soft without signs of injury Resolving pressure injury L ischium(L)1.8cm x (W)1cm.Scattered biofilm at base of wound. Edges flat and adherent with surrounding hyperpigmentation. No odor or exudate noted. Sacrum is pale pink with surrounding hyperpigmentation. Hyperpigmentation R ischium with small sheared area centrally.No areas of erythema or exudate noted. Both heels are soft but blanchable. Skin Assessed under collar of trach and no evidence of skin breakdown noted. All wound Tx. are effective and continued as ordered. Pt ahs an APM/Belén mattress overlay and is being repositioned per protocols and per tolerance.No new skin concerns noted. Full thickness pressure injury L Ischium with small amt biofilm (L)1.8cm x (W) 1cm. Surrounding pink hyperpigmentation. No odor or exudate noted. Ono hyperpigmentation from previous wound noted to sacrum. Pt also noted to have Cat 2 Skin Tear dorsal L hand, L 5th metatarsal extending into palm of hand. 80% skin flap in situ.Both heels are dry firm and blanchable. No other skin concerns noted. R ischial wound has resolved. Ono epithelial with surrounding hyperpigmentation. from historical wound. Full thickness pressure injury L ischium. Ono granulation at base of wound. Borders are macerated with Surrounding hyperpigmentation.Small amt non-odorous serous exudate noted.(L)0.7cm x (W)0.8cm. Skin hyperpigmentation from historical wound noted to Sacrum. Small sheared area noted to sacrococcygeal area.(L)0.4cm x (W)0.3cm.Small amt sanguineous exudate noted. Reabsorbed blister with semi-detached dry necrotic cap noted to web space of L thumb and L index fingers extending into palm of L hand. No odor or exudate noted. Skin assessed under tracheal collar and no erythema or evidence of Skin Breakdown noted. NO new skin concerns noted . Good hand hygiene provided to both hands. R hand contracted and fisted. Fingernails trimmed. Wound care provided along with Primary nurse. Wound Tx continued as ordered. New order obtained from to apply Betadine to wound L hand Daily. Tx done as ordered. L hand wrapped with kerlix weaving kerlix between fingers to separate fingers. Moisture Barrier applied to sacrum ,R ischium. Each site covered with Optifoam drsg. Both lower ext washed and moisturized. Cavilon Skin Barrier applied to both heels.Each heel covered with Optifoam drsgs. Pt positioned with pillows and both heels off-loaded with pillow. Pt wounds are resolving. Loose necrotic cap within web space of L index finger and L thumb easily removed with gentle friction. Base of wound is hypergranular with 10% necrosis. Borders are macerated. Application of Silver Nitrate to hypergranular base done. Cavilon Skin Barrier applied to borders . Good hand hygiene provided. Wound covered with Abd pad. L hand wrapped with Kerlix weaving Kerlix between digitsof L hand. Pressure injury L ischium resolving. Base iof wound is pale pink and dry with surrounding hyperpigmentation and scar from previous wound. Hyperpigmentation with historical scars noted to Sacrum and R ischium. Both heels are soft and blanchable. Skin Assessed under trach collar and no evidence of skin breakdown noted. Tx.Plan: Apply Betadine to wound L hand. Cover with Gauze and wrap with Kerlix Daily and prn. Cleanse L ischial wound with Saline. Apply Therahoney. Apply Moisture Barrier periwound. Cover with Optifoam drsgevery 3 days and prn. Apply Moisture Barrier Paste to R ischium and Sacrum. Cover each area with Optifoam drsg. Change every 3 days and prn. Apply Cavilon Skin Barrier to both heels. Cover each heel with Optifoam drsg. Change every 7 days and prn. Cleanse Blister Dorsal and palm of L hand with saline. Versatel One Silicone Contact Layer(Applied). Apply Silvasorb Gel. Wrap with Kerlix Gauze.Change every 7 days and prn. Apply Moisture Barrier to sacrum. Cover with Optifoam drsg. Change every 3 days and prn. APM/BELÉN Mattress overlay. Reposition at least every 2hours or as tolerated. Off-load heels with pillow. Nutritional optimization We will monitor follow with recommendations cont with above upon d/c wounds healing overall improving (2) Sepsis Assessment & Plan: IV abx as per ID trend labs improving wounds unlikely etiology likely respiratory imaging noted and okay abnormal lft's stable PICC on Abx in ICU for desaturation CXR with consolidation cont with frequent suctioning d/c planning g j via GI daughter wants close attention to wounds and management to ensure healing Evidence of left lower lobe pneumonia, also previously demonstrated Gastrostomy in good position Mild diastasis of the rectus abdominis musculature again demonstrated Retrosacral decubitus changes, better depicted on prior exam which included the pelvis Small hiatal hernia with evidence of trace gastroesophageal reflux Discussed with GI. Recommend GJ family still pending decision transfuse prbc prn monitor h/h monitor bm LFTs improving trending down (3) Feeding by G-tube Assessment & Plan: DAILY ESTIMATED NEEDS: Needs based on Pulmonary, wounds, bedbound/ 61kg adj 25-30 kcals/kg 4227-2525 total kcals 1.25-2 g protein/kg 76-122 g total protein 25-30 mL/kg 6616-9589 total fluid mLs NUTRITION DIAGNOSIS: * Increased kcal/prot needs R/T wound healing as evidenced by BL buttocks and sacral wound photos, refer to WC reynaldo. * Swallowing difficulty R/T respiratory status as evidenced by pt on T-collar, s/p G-J conversion CURRENT TF:Glucerna 1.5 @ 50ml/hr x 24 hrs ENTERAL NUTRITION RECOMMENDATIONS: Glucerna 1.5 @ 50ml/hr x 24 hrs to provide 1200ml, 1800 kcal, 99g pro, 911ml free H2O - Maintain at current rate as tolerated to meet 100% est needs - HOB over 30 degrees - INCREASE water flush of 170ml q 6 hrs ADDITIONAL RECOMMENDATIONS: 1) RE-calibrate bedscale wt: fluctuating daily wts (108#-136# last 6 days) 2) Wound healing: Add Cristian 1pkt BID w/ continued good TF tolerance. 3) Increase water flushes, monitor for signs of water deficits 4) Monitor BGs closely, need for NISS -> now w/ improved BGs 5) Monitor for continued good TF tolerance 6) Monitor K : elev K on 03/25, s/p Kdur BID, now dc'ed. (4) Chronic vegetative state Assessment & Plan: incontinence of urine and stool. can soil dressings. nurses doing great job with monitoring and changing prn (5) Leukocytosis Walter Madera Apr 27, 2019 14:47
--- NOTE | 2019-04-27 16:00 | NUR ---
NURSE NOTES: Oral care provided, pt repositioned and suctioned, 1 brown, solid BM noted and pt cleaned. Wound care performed. No alterations in GT site noted. dressing changed. Pt in no acute distress at this time. Will continue to monitor.
--- NOTE | 2019-04-27 18:00 | NUR ---
NURSE NOTES: Pt repositioned and suctioned. No acute distress noted. Pt opens eyes spontaneously during repositioning and movement. Will continue to monitor.
--- NOTE | 2019-04-27 19:15 | NUR ---
HAND-OFF: Report given to TOYIN Elaine. Pt in stable condition.
--- NOTE | 2019-04-27 19:15 | NUR ---
NURSE NOTES: Received patient from JEANNINE Delgado. Will continue plan of care.
--- NOTE | 2019-04-27 20:00 | NUR ---
NURSE NOTES: Patient is awake, eyes open but does not track. Vital signs are stable; BP:141/61, HR:81, O2:100, RESP:23, shows no signs of pain or distress. On t-piece Shiley 6 xlt @ 28%. G-Tube running Vital AF @ 60ml/hr. GTube and JTube flushed with 100ml h2o. Purewick in place and hooked up to suction. G-tube draining to gravity. on p200 mattress. Safety measures in place; bed low, locked and alarm is on. Will continue plan of care.
[2019-04-27] MEDS: Dyna-Hex 2% Top Sol 2oz TOPIC SCH (20:04)
--- NOTE | 2019-04-27 22:00 | NUR ---
NURSE NOTES: Patient is resting comfortably. Vital signs are stable. Suctioning provided. Safety measures in place.
--- NOTE | 2019-04-27 22:04 | General Progress Note ---
Assessment/Plan Status: stable, progressing Assessment/Plan: Assessment - N/V - resolved with G --> J conversion - constipation - partly due to low residue formula used, good response to sorbitol - Elevated Alk phos / LFT - prior CT negative - abd U/S negative - check hepatitis serologies - negative - possibly MURRAY / Fatty liver - will periodically monitor - Anemia with OB (-) stools - Resp failure, s/p Trach - dysphagia, s/p PEG --> GJ tube - OBS, vegetative obtunded unresponsive state, bedbound with contracted extremities, - h/o minor GJ tube site irritation - elevated BUN/Cr - poor Prognosis Recommendations - daily sorbitol, and PRN sorbitol - Follow BUN/Cr - Cristian BID - antibiotic ointment to GJT site PRN - aspiration precautions - elevate HOB - Vital AF 1.2 - check q 6 hour FS - transfuse to keep Hg > 7 - J tube feeds - G tube drain - repeat LFT, check CPK, repeat abd ultrasound Subjective Allergies: Coded Allergies: CODEINE (Verified Allergy, Unknown, HIVES, 09/15/09) Subjective above noted tolerating TF via J port d/w RN (+) BM higher LFT over weekend noted Objective Last 24 Hour Vital Signs Date Time Temp Pulse Resp B/P (MAP) Pulse Ox O2 Delivery O2 Flow Rate FiO2 04/27/19 21:00 84 22 129/56 (80) 99 04/27/19 20:33 83 24 100 T-Piece 6.0 28 81 24 100 04/27/19 20:33 100 T-Piece 6.0 28 04/27/19 20:00 5.0 28 04/27/19 20:00 T-piece 5.0 T-piece 5.0 04/27/19 20:00 97.6 88 23 141/61 (87) 97 04/27/19 19:00 86 25 149/57 (87) 98 04/27/19 18:00 84 25 141/58 (85) 99 04/27/19 17:00 82 22 139/54 (82) 98 04/27/19 16:00 98.0 82 24 139/61 (87) 98 04/27/19 16:00 78 04/27/19 16:00 5.0 28 04/27/19 16:00 T-piece 5.0 T-piece 5.0 04/27/19 15:57 86 20 100 T-Piece 6.0 28 82 23 100 04/27/19 15:30 81 21 133/55 (81) 98 04/27/19 15:00 81 26 130/64 (86) 97 04/27/19 14:00 83 23 148/57 (87) 98 04/27/19 13:00 86 22 133/57 (82) 99 04/27/19 13:00 99 T-Piece 6.0 28 04/27/19 12:00 28 04/27/19 12:00 98.5 84 22 132/59 (83) 99 04/27/19 12:00 78 04/27/19 12:00 T-piece 5.0 T-piece 5.0 T-piece 5.0 04/27/19 11:53 90 22 100 T-Piece 6.0 28 82 20 99 04/27/19 11:00 82 23 117/58 (77) 98 04/27/19 10:00 82 24 134/60 (84) 98 04/27/19 09:00 87 19 160/63 (95) 98 04/27/19 08:00 T-piece 5.0 T-piece 5.0 T-piece 5.0 04/27/19 08:00 87 04/27/19 08:00 85 21 138/50 (79) 98 04/27/19 08:00 5.0 28 04/27/19 07:17 85 24 100 T-Piece 6.0 28 91 21 98 04/27/19 07:17 100 T-Piece 6.0 28 04/27/19 07:00 97.6 82 20 154/68 (96) 100 04/27/19 06:00 84 22 133/59 (83) 98 04/27/19 05:00 86 23 141/55 (83) 97 04/27/19 04:00 86 04/27/19 04:00 5.0 28 04/27/19 04:00 98.3 89 25 121/63 (82) 98 04/27/19 04:00 T-piece 5.0 T-piece 5.0 T-piece 5.0 04/27/19 03:27 82 20 99 T-Piece 6.0 28 80 20 97 04/27/19 03:00 81 25 123/46 (71) 97 04/27/19 02:00 85 23 130/56 (80) 97 04/27/19 01:20 98 T-Piece 6.0 28 04/27/19 01:00 82 25 115/47 (69) 97 04/27/19 00:00 84 04/27/19 00:00 T-piece 5.0 T-piece 5.0 T-piece 5.0 04/27/19 00:00 98.5 84 23 119/47 (71) 96 04/27/19 00:00 5.0 28 04/26/19 23:07 88 20 99 T-Piece 6.0 28 85 20 97 04/26/19 23:00 81 24 117/50 (72) 96 04/26/19 22:30 81 25 120/48 (72) 96 Intake and Output 04/26/19 04/27/19 19:00 07:00 Intake Total 1320 ml 1260 ml Output Total 750 ml 500 ml Balance 570 ml 760 ml Free Water 300 ml 300 ml Tube Feeding 720 ml 660 ml Other 300 ml 300 ml Output Urine Total 250 ml Gastric Drainage Total 500 ml 500 ml # Bowel Movements 2 Height (Feet): 5 Height (Inches): 3.00 Weight (Pounds): 131 Objective Debilitated AA woman non-verbal, obtunded NCAT (+) trach coarse BS RR obese abd, (+) GJT no edema (+) contractured extremities Celio Vaughan MD Apr 27, 2019 22:04
[2019-04-28] VITALS (25 sets, daily range): BP systolic 105–152; BP diastolic 39–62
--- NOTE | 2019-04-28 | NUR ---
NURSE NOTES: Patient is resting comfortably. Vital signs remains stable. No changes in condition. Turned and repositioned. Suctioning provided. Will continue to monitor.
[2019-04-28] MEDS: Albuterol/Ipratropium 3ml neb HHN SCH ×7 (00:08→22:10)
--- NOTE | 2019-04-28 02:00 | NUR ---
NURSE NOTES: Vital signs remain stable. No pain or distress noted. Will continue to monitor.
--- NOTE | 2019-04-28 04:00 | NUR ---
NURSE NOTES: Patient is stable. Bed bath with london-hex, linen change, oral care, suctioning and turn and reposition provided. No signs of pain or distress. Safety measures in place. Will continue to monitor.
--- NOTE | 2019-04-28 06:00 | NUR ---
NURSE NOTES: Vital signs stable. Patient is comfortable. No signs of pain or distress. Turned and repositioned. Safety measures in place.
[2019-04-28 06:19] LABS: ALANINE AMINOTRANSFERASE 179 U/L (12-78); ALBUMIN 3.2 G/DL (3.4-5.0); ALBUMIN/GLOBULIN RATIO 0.6 (1.0-2.7); ALKALINE PHOSPHATASE 197 U/L (46-116); ANION GAP 7 mmol/L (5-15); ASPARTATE AMINO TRANSFERASE 67 U/L (15-37); BILIRUBIN,TOTAL 0.2 MG/DL (0.2-1.0); BLOOD UREA NITROGEN 74 mg/dL (7-18); CALCIUM 9.4 MG/DL (8.5-10.1); CARBON DIOXIDE 29 MMOL/L (21-32); CHLORIDE 107 MMOL/L (98-107); CREATINE KINASE 114 U/L (26-308); CREATININE 1.1 MG/DL (0.55-1.30); POTASSIUM 4.7 MMOL/L (3.5-5.1); SODIUM 143 MMOL/L (136-145)
--- NOTE | 2019-04-28 07:15 | NUR ---
HAND-OFF: Report given to Gisselle Perez RN.
--- NOTE | 2019-04-28 07:16 | NUR ---
NURSE NOTES: Received patient from JEANNINE Elaine. Patient eyes closed and sleeping at this time with no sign of acute distress. Patient aroused to shaking. Patient does not track with eyes or communicate. This is reported to be the patient's baseline neurological status. Bilateral upper arms contracted at the elbows with hands balled into fists. Bilateral lower extremities lie straight with foot drop noted. Bilateral heels elevated on pillows. Patient on low air loss mattress at this time. Patient showing sinus rhythm on the school lunch monitor with rate of 84bpm. Trach to T-piece with FiO2 28% noted with no secretions noted at this time. Spo2 98% at this time. RR 16. Vital signs stable. patient has gastrostomy/jejunostomy tube that is patent, asymptomatic, and clamped at this time. G tube open to gravity. J tube clamped at this time as patient has an order for abdominal ultrasound this morning. patient has an order for tube feeding of vital AF at 60mL/hr. Will continue feeding post ultrasound. Both G tube and J tube flushed at this time. Patient has purewick in place for incontinence. Asymptomatic and in place. Patient has old sacral and right/left ischial healed pressure injuries. left hand open wound noted. All wounds covered with dressing that is dry and intact. Patient has right upper arm PICC line that is patent, asymptomatic, and saline locked. Dressing dry/intact/ and changed on 04/26. Will follow up with ultrasound for abd ultrasound this morning. Bed in low position with bed alarm on and call light in reach. Oral care performed at this time. Will continue to monitor.
--- NOTE | 2019-04-28 08:20 | Pulmonology Progress Note ---
Assessment/Plan Assessment/Plan Impression: history of Sepsis history of Pneumonia Trach, G tube, Hypertension, Cardiac disease, Dementia, Previous CVA, Seizure disorder, Respiratory failure with hypoxia Anemia, Sacral ulcer renal cyst chronic pulmonary congestion Plan monitor as is continue with respiratory care monitor protein levels monitor labs and reflux aspiration elevate head and monitor secretions DNR. No CPR. ICU care reviewed meds noted off load as able nutrition/fees/ dietary skin care difficulty with placement monitor residual and reflux aspiration all changes noted and discussed chronic management reviewed medications/laboratory data/nursing notes/ICU care reviewed in detail note reviewed and edited care discussed with RN and RT Subjective ROS Limited/Unobtainable: Yes Allergies: Coded Allergies: CODEINE (Verified Allergy, Unknown, HIVES, 09/15/09) Subjective overnight events noted; weekend care reviewed d/w all ICU care issues discussed bed bound and obtunded discussed with primary Objective Last 24 Hour Vital Signs Date Time Temp Pulse Resp B/P (MAP) Pulse Ox O2 Delivery O2 Flow Rate FiO2 04/28/19 08:00 98.5 78 22 117/51 (73) 100 04/28/19 07:50 100 T-Piece 6.0 28 04/28/19 07:50 77 22 100 T-Piece 6.0 28 80 24 100 04/28/19 07:00 81 22 127/54 (78) 99 04/28/19 06:00 81 21 118/56 (76) 97 04/28/19 05:00 81 21 121/50 (73) 99 04/28/19 04:30 82 27 124/52 (76) 97 04/28/19 04:00 T-piece 5.0 T-piece 5.0 04/28/19 04:00 5.0 28 04/28/19 04:00 98.0 84 21 134/62 (86) 99 04/28/19 03:41 92 26 100 T-Piece 6.0 28 85 26 98 04/28/19 03:41 90 04/28/19 03:00 82 22 117/55 (75) 97 04/28/19 02:00 82 23 120/55 (76) 97 04/28/19 01:00 89 21 117/59 (78) 97 04/28/19 00:00 98.2 76 22 113/54 (73) 98 04/28/19 00:00 T-piece 5.0 T-piece 5.0 04/28/19 00:00 5.0 28 04/27/19 23:56 77 04/27/19 23:55 83 24 100 T-Piece 6.0 28 80 24 99 04/27/19 23:55 99 T-Piece 6.0 28 04/27/19 23:00 84 22 111/58 (75) 98 04/27/19 22:00 85 25 123/56 (78) 96 04/27/19 21:00 84 22 129/56 (80) 99 04/27/19 20:33 83 24 100 T-Piece 6.0 28 81 24 100 04/27/19 20:33 100 T-Piece 6.0 28 04/27/19 20:00 5.0 28 04/27/19 20:00 T-piece 5.0 T-piece 5.0 04/27/19 20:00 97.6 88 23 141/61 (87) 97 04/27/19 19:45 87 04/27/19 19:00 86 25 149/57 (87) 98 04/27/19 18:00 84 25 141/58 (85) 99 04/27/19 17:00 82 22 139/54 (82) 98 04/27/19 16:00 98.0 82 24 139/61 (87) 98 04/27/19 16:00 78 04/27/19 16:00 5.0 28 04/27/19 16:00 T-piece 5.0 T-piece 5.0 04/27/19 15:57 86 20 100 T-Piece 6.0 28 82 23 100 04/27/19 15:30 81 21 133/55 (81) 98 04/27/19 15:00 81 26 130/64 (86) 97 04/27/19 14:00 83 23 148/57 (87) 98 04/27/19 13:00 86 22 133/57 (82) 99 04/27/19 13:00 99 T-Piece 6.0 28 04/27/19 12:00 28 04/27/19 12:00 98.5 84 22 132/59 (83) 99 04/27/19 12:00 78 04/27/19 12:00 T-piece 5.0 T-piece 5.0 T-piece 5.0 04/27/19 11:53 90 22 100 T-Piece 6.0 28 82 20 99 04/27/19 11:00 82 23 117/58 (77) 98 04/27/19 10:00 82 24 134/60 (84) 98 04/27/19 09:00 87 19 160/63 (95) 98 Intake and Output 04/27/19 04/28/19 19:00 07:00 Intake Total 1320 ml 1320 ml Output Total 850 ml 900 ml Balance 470 ml 420 ml Free Water 300 ml 300 ml Tube Feeding 720 ml 720 ml Other 300 ml 300 ml Output Urine Total 400 ml 400 ml Gastric Drainage Total 450 ml 500 ml # Voids 1 # Bowel Movements 3 Objective WDWN NAD contracted off vent reduced breath sounds bilaterally without rhonchi or wheeze [id number] without MRG NABS nontender no HSM no CC trace edema same nonfocal nonverbal trach and gt reviewed and edited Laboratory Tests 04/28/19 04:20: Sodium Level 143, Potassium Level 4.7, Chloride Level 107, Carbon Dioxide Level 29, Anion Gap 7, Blood Urea Nitrogen 74H, Creatinine 1.1, Estimat Glomerular Filtration Rate , Glucose Level 109H, Calcium Level 9.4, Total Bilirubin 0.2, Aspartate Amino Transf (AST/SGOT) 67H, Alanine Aminotransferase (ALT/SGPT) 179H , Alkaline Phosphatase 197H, Total Creatine Kinase 114, Total Protein 9.0H, Albumin 3.2L, Globulin 5.8, Albumin/Globulin Ratio 0.6L Current Medications Medications (Trade) Dose Ordered Sig/Maicol Route PRN Reason Start Time Stop Time Status Last Admin Dose Admin Albuterol/ Ipratropium (Albuterol/ Ipratropium) 3 ml Q4HRT HHN 04/25/19 19:00 04/30/19 18:59 04/28/19 07:50 Atropine Sulfate (Atropine Opth Adriana) 1 drop THREE TIMES A DAY SL 04/08/19 09:00 05/07/19 20:59 04/27/19 18:38 Chlorhexidine Gluconate (Cesilia-Hex 2%) 1 applic DAILY@1999 TOPIC 04/12/19 20:00 05/12/19 19:59 04/27/19 20:04 Heparin Sodium (Porcine) (Heparin 5000 units/ml) 5,000 units EVERY 12 HOURS SUBQ 04/01/19 10:00 05/01/19 09:59 04/27/19 20:05 Hydralazine HCl (Apresoline) 25 mg Q6H PRN ORAL SBP above 150 04/06/19 02:45 05/06/19 02:44 04/06/19 11:15 Levetiracetam (Keppra) 750 mg Q12HR GT 04/07/19 21:00 05/07/19 20:59 04/27/19 20:05 Sorbitol (Sorbitol) 30 ml BIDPRN PRN ORAL Constipation 04/13/19 11:15 05/13/19 11:14 Sorbitol (sorbitoL) 30 ml DAILY GT 04/14/19 09:00 05/14/19 08:59 04/27/19 08:39 Amaury Chan MD Apr 28, 2019 08:20
[2019-04-28] MEDS: Sorbitol Solution UD 30ml GT SCH (08:42)
[2019-04-28] MEDS: Heparin 5000 units/ml inj SUBQ SCH ×2 (08:46→20:11)
[2019-04-28] MEDS: levETIRAcetam 500mg/5ml Liquid GT SCH ×2 (08:47→20:10)
[2019-04-28] MEDS ORDERED: levETIRAcetam 500mg/5ml Liquid GT SCH (09:00)
--- NOTE | 2019-04-28 10:04 | General Progress Note ---
Assessment/Plan Problem List: (1) Seizure ICD Codes: R56.9 - Unspecified convulsions SNOMED: 68442246 (2) Anemia ICD Codes: D64.9 - Anemia, unspecified SNOMED: 844400862 Qualifiers: Qualified Codes: D64.9 - Anemia, unspecified (3) Sepsis ICD Codes: A41.9 - Sepsis, unspecified organism SNOMED: 43807012, 107473650 Qualifiers: Qualified Codes: A41.9 - Sepsis, unspecified organism (4) Respiratory failure with hypoxia ICD Codes: J96.91 - Respiratory failure, unspecified with hypoxia SNOMED: 34055317545787163 Qualifiers: Qualified Codes: J96.21 - Acute and chronic respiratory failure with hypoxia (5) HCAP (healthcare-associated pneumonia) ICD Codes: J18.9 - Pneumonia, unspecified organism SNOMED: 484718093, 267208142 (6) Sacral decubitus ulcer ICD Codes: L89.159 - Pressure ulcer of sacral region, unspecified stage SNOMED: 324781674 (7) HTN (hypertension) ICD Codes: I10 - Essential (primary) hypertension SNOMED: 82021340 (8) Chronic vegetative state ICD Codes: R40.3 - Persistent vegetative state SNOMED: 48665975 (9) Chronic respiratory failure ICD Codes: J96.10 - Chronic respiratory failure, unspecified whether with hypoxia or hypercapnia SNOMED: 14388376 (10) Limited mobility ICD Codes: Z74.09 - Other reduced mobility SNOMED: 0151565 Status: stable, progressing Assessment/Plan: vent as needed resp rx suctioning j tube feeds g port to gravity skin care sz rx check labs/monitor Na level bowel regime dc planning Subjective ROS Limited/Unobtainable: Yes Constitutional: Reports: malaise, weakness HEENT: Reports: no symptoms Cardiovascular: Reports: no symptoms Respiratory: Reports: cough, sputum Gastrointestinal/Abdominal: Reports: difficulty swallowing Genitourinary: Reports: no symptoms Neurologic/Psychiatric: Reports: pre-existing deficit, seizure Endocrine: Reports: no symptoms Hematologic/Lymphatic: Reports: no symptoms Allergies: Coded Allergies: CODEINE (Verified Allergy, Unknown, HIVES, 09/15/09) All Systems: reviewed and negative except above Subjective no events. no reports of bleeding. tolerating feeds, no vomiting. minimal secretions. no szs Objective Last 24 Hour Vital Signs Date Time Temp Pulse Resp B/P (MAP) Pulse Ox O2 Delivery O2 Flow Rate FiO2 04/28/19 09:00 81 22 129/51 (77) 97 04/28/19 08:00 98.5 78 22 117/51 (73) 100 04/28/19 08:00 T-piece 5.0 T-piece 5.0 04/28/19 08:00 79 04/28/19 08:00 5.0 28 04/28/19 07:50 100 T-Piece 6.0 28 04/28/19 07:50 77 22 100 T-Piece 6.0 28 80 24 100 04/28/19 07:00 81 22 127/54 (78) 99 04/28/19 06:00 81 21 118/56 (76) 97 04/28/19 05:00 81 21 121/50 (73) 99 04/28/19 04:30 82 27 124/52 (76) 97 04/28/19 04:00 T-piece 5.0 T-piece 5.0 04/28/19 04:00 5.0 28 04/28/19 04:00 98.0 84 21 134/62 (86) 99 04/28/19 03:41 92 26 100 T-Piece 6.0 28 85 26 98 04/28/19 03:41 90 04/28/19 03:00 82 22 117/55 (75) 97 04/28/19 02:00 82 23 120/55 (76) 97 04/28/19 01:00 89 21 117/59 (78) 97 04/28/19 00:00 98.2 76 22 113/54 (73) 98 04/28/19 00:00 T-piece 5.0 T-piece 5.0 04/28/19 00:00 5.0 28 04/27/19 23:56 77 04/27/19 23:55 83 24 100 T-Piece 6.0 28 80 24 99 04/27/19 23:55 99 T-Piece 6.0 28 04/27/19 23:00 84 22 111/58 (75) 98 04/27/19 22:00 85 25 123/56 (78) 96 04/27/19 21:00 84 22 129/56 (80) 99 04/27/19 20:33 83 24 100 T-Piece 6.0 28 81 24 100 04/27/19 20:33 100 T-Piece 6.0 28 04/27/19 20:00 5.0 28 04/27/19 20:00 T-piece 5.0 T-piece 5.0 04/27/19 20:00 97.6 88 23 141/61 (87) 97 04/27/19 19:45 87 04/27/19 19:00 86 25 149/57 (87) 98 04/27/19 18:00 84 25 141/58 (85) 99 04/27/19 17:00 82 22 139/54 (82) 98 04/27/19 16:00 98.0 82 24 139/61 (87) 98 04/27/19 16:00 78 04/27/19 16:00 5.0 28 04/27/19 16:00 T-piece 5.0 T-piece 5.0 04/27/19 15:57 86 20 100 T-Piece 6.0 28 82 23 100 04/27/19 15:30 81 21 133/55 (81) 98 04/27/19 15:00 81 26 130/64 (86) 97 04/27/19 14:00 83 23 148/57 (87) 98 04/27/19 13:00 86 22 133/57 (82) 99 04/27/19 13:00 99 T-Piece 6.0 28 04/27/19 12:00 28 04/27/19 12:00 98.5 84 22 132/59 (83) 99 04/27/19 12:00 78 04/27/19 12:00 T-piece 5.0 T-piece 5.0 T-piece 5.0 04/27/19 11:53 90 22 100 T-Piece 6.0 28 82 20 99 04/27/19 11:00 82 23 117/58 (77) 98 Intake and Output 04/27/19 04/28/19 19:00 07:00 Intake Total 1320 ml 1320 ml Output Total 850 ml 900 ml Balance 470 ml 420 ml Free Water 300 ml 300 ml Tube Feeding 720 ml 720 ml Other 300 ml 300 ml Output Urine Total 400 ml 400 ml Gastric Drainage Total 450 ml 500 ml # Voids 1 # Bowel Movements 3 Laboratory Tests 04/28/19 04:20: Sodium Level 143, Potassium Level 4.7, Chloride Level 107, Carbon Dioxide Level 29, Anion Gap 7, Blood Urea Nitrogen 74H, Creatinine 1.1, Estimat Glomerular Filtration Rate , Glucose Level 109H, Calcium Level 9.4, Total Bilirubin 0.2, Aspartate Amino Transf (AST/SGOT) 67H, Alanine Aminotransferase (ALT/SGPT) 179H , Alkaline Phosphatase 197H, Total Creatine Kinase 114, Total Protein 9.0H, Albumin 3.2L, Globulin 5.8, Albumin/Globulin Ratio 0.6L Height (Feet): 5 Height (Inches): 3.00 Weight (Pounds): 125 Objective General Appearance: WD/WN, confused. on trach collar Neck: supple Cardiovascular: normal rate, regular rhythm Respiratory/Chest: chest wall non-tender, rhonchi - bilaterally(minimal) Abdomen: normal bowel sounds, non tender, soft, no organomegaly Edema: no edema noted Arm (L), no edema noted Arm (R), no edema noted Leg (L), no edema noted Leg (R), no edema noted Pedal (L), no edema noted Pedal (R), no edema noted Generalized Neurologic: disoriented, unresponsive, aphasia Irvin Beltrán MD Apr 28, 2019 10:04
--- NOTE | 2019-04-28 10:20 | NUR ---
NURSE NOTES: Patient vomited x1. Emesis appears to be sputum mixed with gastric content. Emesis clear and yellow/orange tinged. Patient cleaned and gown replaced. Patient vital signs stable with SpO2 95%, RR 20, HR 82, and BP 120/54. Oral and tracheal suction done at this time. Patient repositioned. Addendum: 04/28/19 at 1027 by Gisselle Perez RN Will notify Dr Vaughan when he rounds on the patient.
--- NOTE | 2019-04-28 10:45 | Progress Note ---
DATE: 04/27/2019 CARDIOLOGY PROGRESS NOTE SUBJECTIVE: The patient without any distress. Continues on T-tube support. Blood pressure parameters have improved with decreased pulse. Pressure noted. Monitored sinus rhythm. Exam with no signs of pulmonary venous congestion. Overall, cardiovascular parameters stable. The patient continues with prerenal azotemia and transaminitis. We will continue with observation and pending discharge. Bg Hagen M.D. DR: SHIRA JOB#: [id number] CC:
--- NOTE | 2019-04-28 10:51 | Infectious Diseases Prog Note ---
"Assessment/Plan Assessment/Plan antibiotics : none A 1. klebsiella | providencia pneumonia s/p rx 2. respiratory failure 3. hypertension 4. CVA 5. dementia 6. sacral decubitus ulcer 7. rectal VRE colonization P 1. observe off antibiotics 2. dc planned Subjective ROS Limited/Unobtainable: Yes Allergies: Coded Allergies: CODEINE (Verified Allergy, Unknown, HIVES, 09/15/09) Objective Vital Signs Last 24 Hour Vital Signs Date Time Temp Pulse Resp B/P (MAP) Pulse Ox O2 Delivery O2 Flow Rate FiO2 04/28/19 10:00 84 19 120/54 (76) 97 04/28/19 09:00 81 22 129/51 (77) 97 04/28/19 08:00 98.5 78 22 117/51 (73) 100 04/28/19 08:00 T-piece 5.0 T-piece 5.0 04/28/19 08:00 79 04/28/19 08:00 5.0 28 04/28/19 07:50 100 T-Piece 6.0 28 04/28/19 07:50 77 22 100 T-Piece 6.0 28 80 24 100 04/28/19 07:00 81 22 127/54 (78) 99 04/28/19 06:00 81 21 118/56 (76) 97 04/28/19 05:00 81 21 121/50 (73) 99 04/28/19 04:30 82 27 124/52 (76) 97 04/28/19 04:00 T-piece 5.0 T-piece 5.0 04/28/19 04:00 5.0 28 04/28/19 04:00 98.0 84 21 134/62 (86) 99 04/28/19 03:41 92 26 100 T-Piece 6.0 28 85 26 98 04/28/19 03:41 90 04/28/19 03:00 82 22 117/55 (75) 97 04/28/19 02:00 82 23 120/55 (76) 97 04/28/19 01:00 89 21 117/59 (78) 97 04/28/19 00:00 98.2 76 22 113/54 (73) 98 04/28/19 00:00 T-piece 5.0 T-piece 5.0 04/28/19 00:00 5.0 28 04/27/19 23:56 77 04/27/19 23:55 83 24 100 T-Piece 6.0 28 80 24 99 04/27/19 23:55 99 T-Piece 6.0 28 04/27/19 23:00 84 22 111/58 (75) 98 04/27/19 22:00 85 25 123/56 (78) 96 04/27/19 21:00 84 22 129/56 (80) 99 04/27/19 20:33 83 24 100 T-Piece 6.0 28 81 24 100 04/27/19 20:33 100 T-Piece 6.0 28 04/27/19 20:00 5.0 28 04/27/19 20:00 T-piece 5.0 T-piece 5.0 04/27/19 20:00 97.6 88 23 141/61 (87) 97 04/27/19 19:45 87 04/27/19 19:00 86 25 149/57 (87) 98 04/27/19 18:00 84 25 141/58 (85) 99 04/27/19 17:00 82 22 139/54 (82) 98 04/27/19 16:00 98.0 82 24 139/61 (87) 98 04/27/19 16:00 78 04/27/19 16:00 5.0 28 04/27/19 16:00 T-piece 5.0 T-piece 5.0 04/27/19 15:57 86 20 100 T-Piece 6.0 28 82 23 100 04/27/19 15:30 81 21 133/55 (81) 98 04/27/19 15:00 81 26 130/64 (86) 97 04/27/19 14:00 83 23 148/57 (87) 98 04/27/19 13:00 86 22 133/57 (82) 99 04/27/19 13:00 99 T-Piece 6.0 28 04/27/19 12:00 28 04/27/19 12:00 98.5 84 22 132/59 (83) 99 04/27/19 12:00 78 04/27/19 12:00 T-piece 5.0 T-piece 5.0 T-piece 5.0 04/27/19 11:53 90 22 100 T-Piece 6.0 28 82 20 99 04/27/19 11:00 82 23 117/58 (77) 98 Height (Feet): 5 Height (Inches): 3.00 Weight (Pounds): 125 HEENT: status post trach Respiratory/Chest: lungs clear Cardiovascular: normal rate, regular rhythm, no gallop/murmur Abdomen: soft, non tender, other - GT Extremities: no edema, other - right arm PICC Laboratory Tests Test 04/28/19 04:20 Sodium Level 143 MMOL/L (136-145) Potassium Level 4.7 MMOL/L (3.5-5.1) Chloride Level 107 MMOL/L (98-107) Carbon Dioxide Level 29 MMOL/L (21-32) Anion Gap 7 mmol/L (5-15) Blood Urea Nitrogen 74 mg/dL (7-18) H Creatinine 1.1 MG/DL (0.55-1.30) Estimat Glomerular Filtration Rate mL/min (>60) Glucose Level 109 MG/DL (74-106) H Calcium Level 9.4 MG/DL (8.5-10.1) Total Bilirubin 0.2 MG/DL (0.2-1.0) Aspartate Amino Transf (AST/SGOT) 67 U/L (15-37) H Alanine Aminotransferase (ALT/SGPT) 179 U/L (12-78) H Alkaline Phosphatase 197 U/L (46-116) H Total Creatine Kinase 114 U/L (26-308) Total Protein 9.0 G/DL (6.4-8.2) H Albumin 3.2 G/DL (3.4-5.0) L Globulin 5.8 g/dL Albumin/Globulin Ratio 0.6 (1.0-2.7) L Current Medications Medications (Trade) Dose Ordered Sig/Maicol Route PRN Reason Start Time Stop Time Status Last Admin Dose Admin Albuterol/ Ipratropium (Albuterol/ Ipratropium) 3 ml Q4HRT HHN 04/25/19 19:00 04/30/19 18:59 04/28/19 07:50 Atropine Sulfate (Atropine Opth Adriana) 1 drop THREE TIMES A DAY SL 04/08/19 09:00 05/07/19 20:59 04/28/19 08:42 Chlorhexidine Gluconate (Cesilia-Hex 2%) 1 applic DAILY@1999 TOPIC 04/12/19 20:00 05/12/19 19:59 04/27/19 20:04 Heparin Sodium (Porcine) (Heparin 5000 units/ml) 5,000 units EVERY 12 HOURS SUBQ 04/01/19 10:00 05/01/19 09:59 04/28/19 08:46 Hydralazine HCl (Apresoline) 25 mg Q6H PRN ORAL SBP above 150 04/06/19 02:45 05/06/19 02:44 04/06/19 11:15 Levetiracetam (Keppra) 750 mg Q12HR GT 04/28/19 09:00 05/28/19 08:59 04/28/19 08:47 Sorbitol (Sorbitol) 30 ml BIDPRN PRN ORAL Constipation 04/13/19 11:15 05/13/19 11:14 Sorbitol (sorbitoL) 30 ml DAILY GT 04/14/19 09:00 05/14/19 08:59 04/28/19 08:42 Geovany Yang MD Apr 28, 2019 10:51"
--- NOTE | 2019-04-28 11:33 | Nephrology Progress Note ---
Assessment/Plan Problem List: (1) Acute renal failure (ARF) Assessment: Cr stable (2) Chronic respiratory failure (3) Anemia (4) Sepsis Assessment Acute renal failure Respiratory failure - Trach Low Mag- Low k , Low Na Anemia UTI / Sepsis Proteinuria / HypoAlbuminemia high Trigs Sz decubs bed bound DNR Plan checked labs Transfused previously now has JT bolus Albumin as needed K and Mag and Phos supplement as needed Hydrate as needed Urine studies avoid Nephrotoxics mag K Phos supplements as needed monitor renal parameters Subjective ROS Limited/Unobtainable: Yes Objective Objective Last 24 Hour Vital Signs Date Time Temp Pulse Resp B/P (MAP) Pulse Ox O2 Delivery O2 Flow Rate FiO2 04/28/19 11:09 78 22 99 T-Piece 6.0 28 79 24 97 04/28/19 11:00 81 22 108/56 (73) 96 04/28/19 10:00 84 19 120/54 (76) 97 04/28/19 09:00 81 22 129/51 (77) 97 04/28/19 08:00 98.5 78 22 117/51 (73) 100 04/28/19 08:00 T-piece 5.0 T-piece 5.0 04/28/19 08:00 79 04/28/19 08:00 5.0 28 04/28/19 07:50 100 T-Piece 6.0 28 04/28/19 07:50 77 22 100 T-Piece 6.0 28 80 24 100 04/28/19 07:00 81 22 127/54 (78) 99 04/28/19 06:00 81 21 118/56 (76) 97 04/28/19 05:00 81 21 121/50 (73) 99 04/28/19 04:30 82 27 124/52 (76) 97 04/28/19 04:00 T-piece 5.0 T-piece 5.0 04/28/19 04:00 5.0 28 04/28/19 04:00 98.0 84 21 134/62 (86) 99 04/28/19 03:41 92 26 100 T-Piece 6.0 28 85 26 98 04/28/19 03:41 90 04/28/19 03:00 82 22 117/55 (75) 97 04/28/19 02:00 82 23 120/55 (76) 97 04/28/19 01:00 89 21 117/59 (78) 97 04/28/19 00:00 98.2 76 22 113/54 (73) 98 04/28/19 00:00 T-piece 5.0 T-piece 5.0 04/28/19 00:00 5.0 28 04/27/19 23:56 77 04/27/19 23:55 83 24 100 T-Piece 6.0 28 80 24 99 04/27/19 23:55 99 T-Piece 6.0 28 04/27/19 23:00 84 22 111/58 (75) 98 04/27/19 22:00 85 25 123/56 (78) 96 04/27/19 21:00 84 22 129/56 (80) 99 04/27/19 20:33 83 24 100 T-Piece 6.0 28 81 24 100 04/27/19 20:33 100 T-Piece 6.0 28 04/27/19 20:00 5.0 28 04/27/19 20:00 T-piece 5.0 T-piece 5.0 04/27/19 20:00 97.6 88 23 141/61 (87) 97 04/27/19 19:45 87 04/27/19 19:00 86 25 149/57 (87) 98 04/27/19 18:00 84 25 141/58 (85) 99 04/27/19 17:00 82 22 139/54 (82) 98 04/27/19 16:00 98.0 82 24 139/61 (87) 98 04/27/19 16:00 78 04/27/19 16:00 5.0 28 04/27/19 16:00 T-piece 5.0 T-piece 5.0 04/27/19 15:57 86 20 100 T-Piece 6.0 28 82 23 100 04/27/19 15:30 81 21 133/55 (81) 98 04/27/19 15:00 81 26 130/64 (86) 97 04/27/19 14:00 83 23 148/57 (87) 98 04/27/19 13:00 86 22 133/57 (82) 99 04/27/19 13:00 99 T-Piece 6.0 28 04/27/19 12:00 28 04/27/19 12:00 98.5 84 22 132/59 (83) 99 04/27/19 12:00 78 04/27/19 12:00 T-piece 5.0 T-piece 5.0 T-piece 5.0 04/27/19 11:53 90 22 100 T-Piece 6.0 28 82 20 99 Intake and Output 04/27/19 04/28/19 19:00 07:00 Intake Total 1320 ml 1320 ml Output Total 850 ml 900 ml Balance 470 ml 420 ml Free Water 300 ml 300 ml Tube Feeding 720 ml 720 ml Other 300 ml 300 ml Output Urine Total 400 ml 400 ml Gastric Drainage Total 450 ml 500 ml # Voids 1 # Bowel Movements 3 Laboratory Tests 04/28/19 04:20: Sodium Level 143, Potassium Level 4.7, Chloride Level 107, Carbon Dioxide Level 29, Anion Gap 7, Blood Urea Nitrogen 74H, Creatinine 1.1, Estimat Glomerular Filtration Rate , Glucose Level 109H, Calcium Level 9.4, Total Bilirubin 0.2, Aspartate Amino Transf (AST/SGOT) 67H, Alanine Aminotransferase (ALT/SGPT) 179H , Alkaline Phosphatase 197H, Total Creatine Kinase 114, Total Protein 9.0H, Albumin 3.2L, Globulin 5.8, Albumin/Globulin Ratio 0.6L Height (Feet): 5 Height (Inches): 3.00 Weight (Pounds): 125 General Appearance: no apparent distress EENT: other - trach to O2 Cardiovascular: normal rate Respiratory/Chest: decreased breath sounds Abdomen: soft Objective no change Eric Cortez MD Apr 28, 2019 11:33
--- NOTE | 2019-04-28 12:00 | NUR ---
NURSE NOTES: Patient sleeping at this time with no sign of acute distress. Patient showing sinus rhythm on the ceramics technician with rate of 81bpm. Trach to T-piece with FiO2 28% moderate secretions noted at this time. Spo2 98% at this time. RR 16. Vital signs stable. G tube clamped. Will continue feeding post ultrasound. Both G tube and J tube flushed at this time. Purewick in place and asymptomatic. All wounds covered with dressing that is dry and intact. Right upper arm PICC line patent, asymptomatic, and saline locked. Will follow up with ultrasound for abd ultrasound. Bed in low position with bed alarm on and call light in reach. Oral care and repositioning performed at this time. Will continue to monitor.
--- NOTE | 2019-04-28 13:51 | Surgery Progress Note ---
Surgery Progress Note Subjective Additional Comments No acute events Objective Last 24 Hour Vital Signs Date Time Temp Pulse Resp B/P (MAP) Pulse Ox O2 Delivery O2 Flow Rate FiO2 04/28/19 13:00 81 20 133/48 (76) 99 04/28/19 12:52 100 T-Piece 6.0 28 04/28/19 12:00 T-piece 5.0 T-piece 5.0 04/28/19 12:00 84 04/28/19 12:00 98.7 83 22 105/56 (72) 96 04/28/19 12:00 5.0 28 04/28/19 11:09 78 22 99 T-Piece 6.0 28 79 24 97 04/28/19 11:00 81 22 108/56 (73) 96 04/28/19 10:00 84 19 120/54 (76) 97 04/28/19 09:00 81 22 129/51 (77) 97 04/28/19 08:00 98.5 78 22 117/51 (73) 100 04/28/19 08:00 T-piece 5.0 T-piece 5.0 04/28/19 08:00 79 04/28/19 08:00 5.0 28 04/28/19 07:50 100 T-Piece 6.0 28 04/28/19 07:50 77 22 100 T-Piece 6.0 28 80 24 100 04/28/19 07:00 81 22 127/54 (78) 99 04/28/19 06:00 81 21 118/56 (76) 97 04/28/19 05:00 81 21 121/50 (73) 99 04/28/19 04:30 82 27 124/52 (76) 97 04/28/19 04:00 T-piece 5.0 T-piece 5.0 04/28/19 04:00 5.0 28 04/28/19 04:00 98.0 84 21 134/62 (86) 99 04/28/19 03:41 92 26 100 T-Piece 6.0 28 85 26 98 04/28/19 03:41 90 04/28/19 03:00 82 22 117/55 (75) 97 04/28/19 02:00 82 23 120/55 (76) 97 04/28/19 01:00 89 21 117/59 (78) 97 04/28/19 00:00 98.2 76 22 113/54 (73) 98 04/28/19 00:00 T-piece 5.0 T-piece 5.0 04/28/19 00:00 5.0 28 04/27/19 23:56 77 04/27/19 23:55 83 24 100 T-Piece 6.0 28 80 24 99 04/27/19 23:55 99 T-Piece 6.0 28 04/27/19 23:00 84 22 111/58 (75) 98 04/27/19 22:00 85 25 123/56 (78) 96 04/27/19 21:00 84 22 129/56 (80) 99 04/27/19 20:33 83 24 100 T-Piece 6.0 28 81 24 100 04/27/19 20:33 100 T-Piece 6.0 28 04/27/19 20:00 5.0 28 04/27/19 20:00 T-piece 5.0 T-piece 5.0 04/27/19 20:00 97.6 88 23 141/61 (87) 97 04/27/19 19:45 87 04/27/19 19:00 86 25 149/57 (87) 98 04/27/19 18:00 84 25 141/58 (85) 99 04/27/19 17:00 82 22 139/54 (82) 98 04/27/19 16:00 98.0 82 24 139/61 (87) 98 04/27/19 16:00 78 04/27/19 16:00 5.0 28 04/27/19 16:00 T-piece 5.0 T-piece 5.0 04/27/19 15:57 86 20 100 T-Piece 6.0 28 82 23 100 04/27/19 15:30 81 21 133/55 (81) 98 04/27/19 15:00 81 26 130/64 (86) 97 04/27/19 14:00 83 23 148/57 (87) 98 I&O Intake and Output 04/27/19 04/28/19 19:00 07:00 Intake Total 1320 ml 1320 ml Output Total 850 ml 900 ml Balance 470 ml 420 ml Free Water 300 ml 300 ml Tube Feeding 720 ml 720 ml Other 300 ml 300 ml Output Urine Total 400 ml 400 ml Gastric Drainage Total 450 ml 500 ml # Voids 1 # Bowel Movements 3 Dressing: other Wound: other Drains: other Cardiovascular: RSR Respiratory: decreased breath sounds Abdomen: soft, present bowel sounds Extremities: no cyanosis, other Laboratory Tests Test 04/28/19 04:20 Sodium Level 143 MMOL/L (136-145) Potassium Level 4.7 MMOL/L (3.5-5.1) Chloride Level 107 MMOL/L (98-107) Carbon Dioxide Level 29 MMOL/L (21-32) Anion Gap 7 mmol/L (5-15) Blood Urea Nitrogen 74 mg/dL (7-18) H Creatinine 1.1 MG/DL (0.55-1.30) Estimat Glomerular Filtration Rate mL/min (>60) Glucose Level 109 MG/DL (74-106) H Calcium Level 9.4 MG/DL (8.5-10.1) Total Bilirubin 0.2 MG/DL (0.2-1.0) Aspartate Amino Transf (AST/SGOT) 67 U/L (15-37) H Alanine Aminotransferase (ALT/SGPT) 179 U/L (12-78) H Alkaline Phosphatase 197 U/L (46-116) H Total Creatine Kinase 114 U/L (26-308) Total Protein 9.0 G/DL (6.4-8.2) H Albumin 3.2 G/DL (3.4-5.0) L Globulin 5.8 g/dL Albumin/Globulin Ratio 0.6 (1.0-2.7) L Plan Problems: (1) Sacral decubitus ulcer Assessment & Plan: This is a 83-year-old female with multiple medical committees that is currently admitted for medical care and management and identified to have multiple wounds requiring care. On admission patient noted to have a resolved sacral decubitus ulcer. Has had prior care and is well-healed at this time. Will ensure it does not open up again. Patient has a right ischial decubitus ulcer that is resolved. Scar intact and well formed. Will monitor to ensure it does not open up again. Patient has a left ischial decubitus ulcer that can be identified to be stage IV with palpable bone that has been resolving as noted by the periwound tissue and scar but open area approximately 1 cm x 1.5 cm few millimeters deep to bone identified. Unsure if this is been to be completely healed prior and has since opened or if has been healing at this level. No foul odor no drainage was unsure local wound care until healed Bilateral heels soft without signs of injury Resolving pressure injury L ischium(L)1.8cm x (W)1cm.Scattered biofilm at base of wound. Edges flat and adherent with surrounding hyperpigmentation. No odor or exudate noted. Sacrum is pale pink with surrounding hyperpigmentation. Hyperpigmentation R ischium with small sheared area centrally.No areas of erythema or exudate noted. Both heels are soft but blanchable. Skin Assessed under collar of trach and no evidence of skin breakdown noted. All wound Tx. are effective and continued as ordered. Pt ahs an APM/Belén mattress overlay and is being repositioned per protocols and per tolerance.No new skin concerns noted. Full thickness pressure injury L Ischium with small amt biofilm (L)1.8cm x (W) 1cm. Surrounding pink hyperpigmentation. No odor or exudate noted. [place] hyperpigmentation from previous wound noted to sacrum. Pt also noted to have Cat 2 Skin Tear dorsal L hand, L 5th metatarsal extending into palm of hand. 80% skin flap in situ.Both heels are dry firm and blanchable. No other skin concerns noted. R ischial wound has resolved. [place] epithelial with surrounding hyperpigmentation. from historical wound. Full thickness pressure injury L ischium. [place] granulation at base of wound. Borders are macerated with Surrounding hyperpigmentation.Small amt non-odorous serous exudate noted.(L)0.7cm x (W)0.8cm. Skin hyperpigmentation from historical wound noted to Sacrum. Small sheared area noted to sacrococcygeal area.(L)0.4cm x (W)0.3cm.Small amt sanguineous exudate noted. Reabsorbed blister with semi-detached dry necrotic cap noted to web space of L thumb and L index fingers extending into palm of L hand. No odor or exudate noted. Skin assessed under tracheal collar and no erythema or evidence of Skin Breakdown noted. NO new skin concerns noted . Good hand hygiene provided to both hands. R hand contracted and fisted. Fingernails trimmed. Wound care provided along with Primary nurse. Wound Tx continued as ordered. New order obtained from to apply Betadine to wound L hand Daily. Tx done as ordered. L hand wrapped with kerlix weaving kerlix between fingers to separate fingers. Moisture Barrier applied to sacrum ,R ischium. Each site covered with Optifoam drsg. Both lower ext washed and moisturized. Cavilon Skin Barrier applied to both heels.Each heel covered with Optifoam drsgs. Pt positioned with pillows and both heels off-loaded with pillow. Pt wounds are resolving. Loose necrotic cap within web space of L index finger and L thumb easily removed with gentle friction. Base of wound is hypergranular with 10% necrosis. Borders are macerated. Application of Silver Nitrate to hypergranular base done. Cavilon Skin Barrier applied to borders . Good hand hygiene provided. Wound covered with Abd pad. L hand wrapped with Kerlix weaving Kerlix between digitsof L hand. Pressure injury L ischium resolving. Base iof wound is pale pink and dry with surrounding hyperpigmentation and scar from previous wound. Hyperpigmentation with historical scars noted to Sacrum and R ischium. Both heels are soft and blanchable. Skin Assessed under trach collar and no evidence of skin breakdown noted. Tx.Plan: Apply Betadine to wound L hand. Cover with Gauze and wrap with Kerlix Daily and prn. Cleanse L ischial wound with Saline. Apply Therahoney. Apply Moisture Barrier periwound. Cover with Optifoam drsgevery 3 days and prn. Apply Moisture Barrier Paste to R ischium and Sacrum. Cover each area with Optifoam drsg. Change every 3 days and prn. Apply Cavilon Skin Barrier to both heels. Cover each heel with Optifoam drsg. Change every 7 days and prn. Cleanse Blister Dorsal and palm of L hand with saline. Versatel One Silicone Contact Layer(Applied). Apply Silvasorb Gel. Wrap with Kerlix Gauze.Change every 7 days and prn. Apply Moisture Barrier to sacrum. Cover with Optifoam drsg. Change every 3 days and prn. APM/BELÉN Mattress overlay. Reposition at least every 2hours or as tolerated. Off-load heels with pillow. Nutritional optimization We will monitor follow with recommendations cont with above upon d/c wounds healing overall improving (2) Sepsis Assessment & Plan: IV abx as per ID trend labs improving wounds unlikely etiology likely respiratory imaging noted and okay abnormal lft's stable PICC on Abx in ICU for desaturation CXR with consolidation cont with frequent suctioning d/c planning g j via GI daughter wants close attention to wounds and management to ensure healing Evidence of left lower lobe pneumonia, also previously demonstrated Gastrostomy in good position Mild diastasis of the rectus abdominis musculature again demonstrated Retrosacral decubitus changes, better depicted on prior exam which included the pelvis Small hiatal hernia with evidence of trace gastroesophageal reflux Discussed with GI. Recommend GJ family still pending decision transfuse prbc prn monitor h/h monitor bm LFTs improving trending down (3) Feeding by G-tube Assessment & Plan: DAILY ESTIMATED NEEDS: Needs based on Pulmonary, wounds, bedbound/ 61kg adj 25-30 kcals/kg [id number] total kcals 1.25-2 g protein/kg 76-122 g total protein 25-30 mL/kg 0851-4409 total fluid mLs NUTRITION DIAGNOSIS: * Increased kcal/prot needs R/T wound healing as evidenced by BL buttocks and sacral wound photos, refer to WC eval. * Swallowing difficulty R/T respiratory status as evidenced by pt on T-collar, s/p G-J conversion CURRENT TF:Glucerna 1.5 @ 50ml/hr x 24 hrs ENTERAL NUTRITION RECOMMENDATIONS: Glucerna 1.5 @ 50ml/hr x 24 hrs to provide 1200ml, 1800 kcal, 99g pro, 911ml free H2O - Maintain at current rate as tolerated to meet 100% est needs - HOB over 30 degrees - INCREASE water flush of 170ml q 6 hrs ADDITIONAL RECOMMENDATIONS: 1) RE-calibrate bedscale wt: fluctuating daily wts (108#-136# last 6 days) 2) Wound healing: Add Cristian 1pkt BID w/ continued good TF tolerance. 3) Increase water flushes, monitor for signs of water deficits 4) Monitor BGs closely, need for NISS -> now w/ improved BGs 5) Monitor for continued good TF tolerance 6) Monitor K : elev K on 03/25, s/p Kdur BID, now dc'ed. (4) Chronic vegetative state Assessment & Plan: incontinence of urine and stool. can soil dressings. nurses doing great job with monitoring and changing prn (5) Leukocytosis Additional Comments I will continue see the patient daily and ensure that this wound is healing as per request of family. I may not write notes on a daily basis Walter Madera Apr 28, 2019 13:51
--- NOTE | 2019-04-28 14:00 | NUR ---
NURSE NOTES: No sign of acute distress. VS stable. Patient repositioned and oral/tracheal suctioned.
--- NOTE | 2019-04-28 16:00 | NUR ---
NURSE NOTES: Patient sleeping at this time with no sign of acute distress. 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 Trach to T-piece with FiO2 28% moderate secretions noted at this time. Spo2 98% at this time. RR 16. Vital signs stable. G tube clamped. Will continue feeding post ultrasound. Both G tube and J tube flushed at this time. Purewick replaced and asymptomatic. All wounds dressings replaced. Right upper arm PICC line patent, asymptomatic, and saline locked. Bed in low position with bed alarm on and call light in reach. Oral care and repositioning and bed bath performed at this time. Will continue to monitor.
--- NOTE | 2019-04-28 16:51 | Diagnostic Imaging Report ---
Indication: Abnormal liver function tests and renal function tests Technique: Mary-scale and duplex images of the upper abdomen were obtained Comparison: 04/06/2019 Findings: Exam is limited, due to gastrostomy tube and images, bowel gas, patient contractures. Gallbladder demonstrates a tiny echogenic mural focus, measuring 3 mm, also previously described. This appears unchanged. Patient is uncommunicative, unable to report sonographic Garcia's sign. Common bile duct measures 5 mm in diameter. No intrahepatic biliary ductal dilatation. Liver demonstrates normal echogenicity, no focal abnormality. Portal vein and hepatic veins are patent. Pancreas is unremarkable. Spleen is unremarkable. Left kidney measures 10.2 cm in length. Right kidney measures 9.8 cm length. Both kidneys demonstrate slightly increased echogenicity. Both kidneys demonstrate cysts. There is no hydronephrosis. Abdominal aorta is partially obscured by bowel gas, visualized portions are non-aneurysmal . No significant interim change Impression: Echogenic gallbladder wall focus, probably a focal calcification, also previously reported. Negative for gallstones or dilated bile ducts Echogenic bilateral kidneys, suggestive of medical renal disease. Negative for hydronephrosis Bilateral renal cysts incidentally noted
--- NOTE | 2019-04-28 18:00 | NUR ---
NURSE NOTES: No sign of acute distress. VS stable. Patient repositioned and oral/tracheal suctioned.
--- NOTE | 2019-04-28 19:10 | NUR ---
NURSE NOTES: Received patient from Gisselle Perez RN. Will continue plan of care.
--- NOTE | 2019-04-28 19:10 | NUR ---
HAND-OFF: Report given to JEANNINE Elaine. VS stable.
--- NOTE | 2019-04-28 20:00 | NUR ---
NURSE NOTES: Patient is awake, does not make eye contact. On t-piece Shiley 6xlt @ 28% O2:100%. Vital signs are stable. G/J-tube each flushed with 100ml h2o. J-tube running Vital AF @ 60ml/hr and tolerating well. G-Tube draining to gravity. Purewick in place and suctioning. Safety measures in place; bed low, locked and alarm is on. No pain or distress noted. Will continue plan of care.
[2019-04-28] MEDS: Dyna-Hex 2% Top Sol 2oz TOPIC SCH (20:10)
--- NOTE | 2019-04-28 21:00 | Progress Note ---
DATE: 04/28/2019 SUBJECTIVE: This patient remains on trach collar. No respiratory distress. Monitored rhythm, sinus. Tolerating feeding with no bleeding. OBJECTIVE: VITAL SIGNS: Blood pressure 129/51, pulse 81, respiratory 22. LUNGS: Thin secretions. Bilateral breath sounds. HEART: Regular rhythm and rate. Normal S1, S2. No new murmur. ABDOMEN: Soft. G-tube intact. EXTREMITIES: No edema. LABORATORY DATA: Sodium 143, potassium 4.7, BUN 74, creatinine 1.1. AST and ALT 67/179. IMPRESSION: 1. No overall change in clinical condition, to continue volume support. 2. No additional cardiovascular medications presently indicated. 3. Follow-up liver function studies based on clinical course. Bg Hagen M.D. DR: KAREN JOB#: [id number] CC:
--- NOTE | 2019-04-28 21:22 | General Progress Note ---
Assessment/Plan Status: stable, progressing Assessment/Plan: Assessment - N/V - resolved with G --> J conversion - constipation - partly due to low residue formula used, good response to sorbitol - Elevated Alk phos / LFT - prior CT negative x 2 - but both w/o IV contrast - abd U/S negative, x 2 - check hepatitis serologies - negative - possibly MURRAY / Fatty liver - will monitor - Anemia with OB (-) stools - Resp failure, s/p Trach - dysphagia, s/p PEG --> GJ tube - OBS, vegetative obtunded unresponsive state, bedbound with contracted extremities, - h/o minor GJ tube site irritation - poor Prognosis Recommendations - daily sorbitol, and PRN sorbitol - Cristian BID - antibiotic ointment to GJT site PRN - aspiration precautions - elevate HOB - Vital AF 1.2 - check q 6 hour FS - transfuse to keep Hg > 7 - J tube feeds - G tube drain - Check CT with IV contrast - indications and risks d/w dtr - agreed to give contrast consent Subjective Allergies: Coded Allergies: CODEINE (Verified Allergy, Unknown, HIVES, 09/15/09) Subjective above noted tolerating TF via J port d/w RN higher LFT noted Objective Last 24 Hour Vital Signs Date Time Temp Pulse Resp B/P (MAP) Pulse Ox O2 Delivery O2 Flow Rate FiO2 04/28/19 20:00 5.0 28 04/28/19 20:00 T-piece 5.0 T-piece 5.0 04/28/19 19:11 98 T-Piece 6.0 28 04/28/19 19:10 82 21 99 T-Piece 6.0 80 22 97 04/28/19 19:00 80 21 115/50 (71) 96 04/28/19 18:00 81 21 113/61 (78) 97 04/28/19 17:00 86 23 123/53 (76) 99 04/28/19 16:00 79 04/28/19 16:00 5.0 28 04/28/19 16:00 T-piece 5.0 T-piece 5.0 04/28/19 16:00 98.5 81 19 117/48 (71) 98 04/28/19 15:46 80 22 100 T-Piece 6.0 86 22 98 04/28/19 15:00 83 20 120/44 (69) 98 04/28/19 14:00 85 14 128/55 (79) 100 04/28/19 13:00 81 20 133/48 (76) 99 04/28/19 12:52 100 T-Piece 6.0 28 04/28/19 12:00 T-piece 5.0 T-piece 5.0 04/28/19 12:00 84 04/28/19 12:00 98.7 83 22 105/56 (72) 96 04/28/19 12:00 5.0 28 04/28/19 11:09 78 22 99 T-Piece 6.0 28 79 24 97 04/28/19 11:00 81 22 108/56 (73) 96 04/28/19 10:00 84 19 120/54 (76) 97 04/28/19 09:00 81 22 129/51 (77) 97 04/28/19 08:00 98.5 78 22 117/51 (73) 100 04/28/19 08:00 T-piece 5.0 T-piece 5.0 04/28/19 08:00 79 04/28/19 08:00 5.0 28 04/28/19 07:50 100 T-Piece 6.0 28 04/28/19 07:50 77 22 100 T-Piece 6.0 28 80 24 100 04/28/19 07:00 81 22 127/54 (78) 99 04/28/19 06:00 81 21 118/56 (76) 97 04/28/19 05:00 81 21 121/50 (73) 99 04/28/19 04:30 82 27 124/52 (76) 97 04/28/19 04:00 T-piece 5.0 T-piece 5.0 04/28/19 04:00 5.0 28 04/28/19 04:00 98.0 84 21 134/62 (86) 99 04/28/19 03:41 92 26 100 T-Piece 6.0 28 85 26 98 04/28/19 03:41 90 04/28/19 03:00 82 22 117/55 (75) 97 04/28/19 02:00 82 23 120/55 (76) 97 04/28/19 01:00 89 21 117/59 (78) 97 04/28/19 00:00 98.2 76 22 113/54 (73) 98 04/28/19 00:00 T-piece 5.0 T-piece 5.0 04/28/19 00:00 5.0 28 04/27/19 23:56 77 04/27/19 23:55 83 24 100 T-Piece 6.0 28 80 24 99 04/27/19 23:55 99 T-Piece 6.0 28 04/27/19 23:00 84 22 111/58 (75) 98 04/27/19 22:00 85 25 123/56 (78) 96 Intake and Output 04/27/19 04/28/19 19:00 07:00 Intake Total 1320 ml 1320 ml Output Total 850 ml 900 ml Balance 470 ml 420 ml Free Water 300 ml 300 ml Tube Feeding 720 ml 720 ml Other 300 ml 300 ml Output Urine Total 400 ml 400 ml Gastric Drainage Total 450 ml 500 ml # Voids 1 # Bowel Movements 3 Laboratory Tests 04/28/19 04:20: Sodium Level 143, Potassium Level 4.7, Chloride Level 107, Carbon Dioxide Level 29, Anion Gap 7, Blood Urea Nitrogen 74H, Creatinine 1.1, Estimat Glomerular Filtration Rate , Glucose Level 109H, Calcium Level 9.4, Total Bilirubin 0.2, Aspartate Amino Transf (AST/SGOT) 67H, Alanine Aminotransferase (ALT/SGPT) 179H , Alkaline Phosphatase 197H, Total Creatine Kinase 114, Total Protein 9.0H, Albumin 3.2L, Globulin 5.8, Albumin/Globulin Ratio 0.6L Height (Feet): 5 Height (Inches): 3.00 Weight (Pounds): 125 Objective Debilitated AA woman non-verbal, obtunded NCAT (+) trach coarse BS RR obese abd, (+) GJT no edema (+) contractured extremities Celio Vaughan MD Apr 28, 2019 21:22
[2019-04-28] MEDS ORDERED: Omnipaque-300 100ml vial INJ PRN (21:30)
--- NOTE | 2019-04-28 22:00 | NUR ---
NURSE NOTES: Vital signs stable. Patient is resting comfortably. Suctioning provided. Will continue to monitor.
[2019-04-29] VITALS (24 sets, daily range): BP systolic 112–153; BP diastolic 31–79
--- NOTE | 2019-04-29 | NUR ---
NURSE NOTES: Patient is resting comfortably. Vital signs stable. Turned and repositioned. Suctioning provided. Will continue to monitor.
--- NOTE | 2019-04-29 02:00 | NUR ---
NURSE NOTES: Patient is asleep. No signs of pain or distress shown. Suctioning provided. Will continue to monitor.
[2019-04-29] MEDS: Albuterol/Ipratropium 3ml neb HHN SCH ×6 (02:48→23:10)
--- NOTE | 2019-04-29 04:00 | NUR ---
NURSE NOTES: Bed bath given with london-hex, linen changed, oral care done, suctioning provided, turned and repositioned. Safety measures in place; bed low, locked and alarm is on. Patient is comfortable. Vital signs are stable.
--- NOTE | 2019-04-29 06:00 | NUR ---
NURSE NOTES: Vital signs are stable, patient is comfortable. Suctioning provided. Will continue to monitor.
[2019-04-29 06:24] LABS: ALANINE AMINOTRANSFERASE 164 U/L (12-78); ALBUMIN 3.2 G/DL (3.4-5.0); ALBUMIN/GLOBULIN RATIO 0.6 (1.0-2.7); ALKALINE PHOSPHATASE 178 U/L (46-116); ANION GAP 10 mmol/L (5-15); ASPARTATE AMINO TRANSFERASE 55 U/L (15-37); BILIRUBIN,TOTAL 0.3 MG/DL (0.2-1.0); BLOOD UREA NITROGEN 80 mg/dL (7-18); CALCIUM 9.5 MG/DL (8.5-10.1); CARBON DIOXIDE 31 MMOL/L (21-32); CHLORIDE 105 MMOL/L (98-107); CREATININE 1.2 MG/DL (0.55-1.30); POTASSIUM 4.8 MMOL/L (3.5-5.1); SODIUM 145 MMOL/L (136-145)
--- NOTE | 2019-04-29 07:20 | NUR ---
HAND-OFF: Report given to JEANNINE Miller.
--- NOTE | 2019-04-29 07:42 | General Progress Note ---
Assessment/Plan Problem List: (1) Seizure ICD Codes: R56.9 - Unspecified convulsions SNOMED: 09266509 (2) Anemia ICD Codes: D64.9 - Anemia, unspecified SNOMED: 125127683 Qualifiers: Qualified Codes: D64.9 - Anemia, unspecified (3) Sepsis ICD Codes: A41.9 - Sepsis, unspecified organism SNOMED: 95543470, 306467133 Qualifiers: Qualified Codes: A41.9 - Sepsis, unspecified organism (4) Respiratory failure with hypoxia ICD Codes: J96.91 - Respiratory failure, unspecified with hypoxia SNOMED: 24615210129048589 Qualifiers: Qualified Codes: J96.21 - Acute and chronic respiratory failure with hypoxia (5) HCAP (healthcare-associated pneumonia) ICD Codes: J18.9 - Pneumonia, unspecified organism SNOMED: 875264000, 350346501 (6) Sacral decubitus ulcer ICD Codes: L89.159 - Pressure ulcer of sacral region, unspecified stage SNOMED: 022537341 (7) HTN (hypertension) ICD Codes: I10 - Essential (primary) hypertension SNOMED: 77758050 (8) Chronic vegetative state ICD Codes: R40.3 - Persistent vegetative state SNOMED: 04254845 (9) Chronic respiratory failure ICD Codes: J96.10 - Chronic respiratory failure, unspecified whether with hypoxia or hypercapnia SNOMED: 89450646 (10) Limited mobility ICD Codes: Z74.09 - Other reduced mobility SNOMED: 7946664 Status: stable, progressing Assessment/Plan: vent as needed resp rx suctioning j tube feeds g port to gravity skin care sz rx check labs bowel regime dc planning Subjective ROS Limited/Unobtainable: No Constitutional: Reports: malaise, weakness HEENT: Reports: no symptoms Cardiovascular: Reports: no symptoms Respiratory: Reports: cough, sputum Gastrointestinal/Abdominal: Reports: difficulty swallowing Genitourinary: Reports: no symptoms Neurologic/Psychiatric: Reports: pre-existing deficit, seizure Endocrine: Reports: no symptoms Hematologic/Lymphatic: Reports: no symptoms Allergies: Coded Allergies: CODEINE (Verified Allergy, Unknown, HIVES, 09/15/09) All Systems: reviewed and negative except above Subjective no events. no reports of bleeding. tolerating feeds, no vomiting. minimal secretions. no szs Objective Last 24 Hour Vital Signs Date Time Temp Pulse Resp B/P (MAP) Pulse Ox O2 Delivery O2 Flow Rate FiO2 04/29/19 07:18 100 T-Piece 6.0 28 04/29/19 07:17 78 20 100 T-Piece 6.0 28 04/29/19 07:16 75 19 100 T-Piece 6.0 28 79 19 100 04/29/19 07:00 84 18 138/79 (98) 96 04/29/19 06:00 80 18 127/50 (75) 98 04/29/19 05:00 78 18 136/37 (70) 99 04/29/19 04:00 T-piece 5.0 T-piece 5.0 04/29/19 04:00 98.3 79 19 117/35 (62) 96 04/29/19 04:00 5.0 28 04/29/19 03:50 80 04/29/19 03:00 81 20 112/40 (64) 96 04/29/19 02:48 80 22 98 T-Piece 6.0 28 77 23 96 04/29/19 02:00 78 24 112/45 (67) 96 04/29/19 01:00 81 25 119/44 (69) 97 04/29/19 00:44 97 T-Piece 6.0 28 04/29/19 00:00 5.0 28 04/29/19 00:00 98.4 82 20 128/32 (64) 97 04/29/19 00:00 T-piece 5.0 T-piece 5.0 04/28/19 23:43 82 04/28/19 23:00 96 20 152/46 (81) 99 04/28/19 22:10 81 20 99 T-Piece 6.0 28 78 19 98 04/28/19 22:00 80 20 109/41 (63) 97 04/28/19 21:00 83 19 114/53 (73) 97 04/28/19 20:06 86 04/28/19 20:00 5.0 28 04/28/19 20:00 98.5 84 20 128/39 (68) 98 04/28/19 20:00 T-piece 5.0 T-piece 5.0 04/28/19 19:11 98 T-Piece 6.0 28 04/28/19 19:10 82 21 99 T-Piece 6.0 28 80 22 97 04/28/19 19:00 80 21 115/50 (71) 96 04/28/19 18:00 81 21 113/61 (78) 97 04/28/19 17:00 86 23 123/53 (76) 99 04/28/19 16:00 79 04/28/19 16:00 5.0 28 04/28/19 16:00 T-piece 5.0 T-piece 5.0 04/28/19 16:00 98.5 81 19 117/48 (71) 98 04/28/19 15:46 80 22 100 T-Piece 6.0 28 86 22 98 04/28/19 15:00 83 20 120/44 (69) 98 04/28/19 14:00 85 14 128/55 (79) 100 04/28/19 13:00 81 20 133/48 (76) 99 04/28/19 12:52 100 T-Piece 6.0 28 04/28/19 12:00 T-piece 5.0 T-piece 5.0 04/28/19 12:00 84 04/28/19 12:00 98.7 83 22 105/56 (72) 96 04/28/19 12:00 5.0 28 04/28/19 11:09 78 22 99 T-Piece 6.0 28 79 24 97 04/28/19 11:00 81 22 108/56 (73) 96 04/28/19 10:00 84 19 120/54 (76) 97 04/28/19 09:00 81 22 129/51 (77) 97 04/28/19 08:00 98.5 78 22 117/51 (73) 100 04/28/19 08:00 T-piece 5.0 T-piece 5.0 04/28/19 08:00 79 04/28/19 08:00 5.0 28 04/28/19 07:50 100 T-Piece 6.0 28 04/28/19 07:50 77 22 100 T-Piece 6.0 28 80 24 100 Intake and Output 04/28/19 04/29/19 19:00 07:00 Intake Total 1010 ml 640 ml Output Total 765 ml 500 ml Balance 245 ml 140 ml Free Water 300 ml 200 ml Tube Feeding 360 ml 240 ml Other 350 ml 200 ml Output Urine Total 150 ml 300 ml Gastric Drainage Total 575 ml 200 ml Emesis 40 ml # Voids 2 # Bowel Movements 1 Laboratory Tests 04/29/19 04:00: Sodium Level 145, Potassium Level 4.8, Chloride Level 105, Carbon Dioxide Level 31, Anion Gap 10, Blood Urea Nitrogen 80H, Creatinine 1.2, Estimat Glomerular Filtration Rate , Glucose Level 90, Calcium Level 9.5, Total Bilirubin 0.3, Aspartate Amino Transf (AST/SGOT) 55H, Alanine Aminotransferase (ALT/SGPT) 164H , Alkaline Phosphatase 178H, Total Protein 9.0H, Albumin 3.2L, Globulin 5.8, Albumin/Globulin Ratio 0.6L, Anti-Nuclear Antibody Screen [Pending], F-Actin IgG Antibody [Pending], Pamela-Monsivais Virus Capsid Ag IgM Ab [Pending], Herpes Simplex Virus I IgM Ab (IFA) [Pending], Herpes Simplex Virus II IgM Ab (IFA [ Pending] Height (Feet): 5 Height (Inches): 3.00 Weight (Pounds): 125 Objective General Appearance: WD/WN, confused. on trach collar Neck: supple Cardiovascular: normal rate, regular rhythm Respiratory/Chest: chest wall non-tender, rhonchi - bilaterally(minimal) Abdomen: normal bowel sounds, non tender, soft, no organomegaly Edema: no edema noted Arm (L), no edema noted Arm (R), no edema noted Leg (L), no edema noted Leg (R), no edema noted Pedal (L), no edema noted Pedal (R), no edema noted Generalized Neurologic: disoriented, unresponsive, aphasia Irvin Beltrán MD Apr 29, 2019 07:42
--- NOTE | 2019-04-29 07:45 | NUR ---
NURSE NOTES: LATE ENTRY: RECEIVED REPORT FROM MAXIMO Ramos PT IN BED. OBTUNDED. RESPONSIVE TO SHAKING. SR ON MONITOR. NO S/S OF PAIN. BILATERAL UPPER AND LOWER EXTREMITY CONTRACTURES. CR DRAINING URINE. PT TRACH SHILEY XTL T-PIECE 28% SATING 97%. DIET NPO FOR CT OF ABDOMEN, GT AND JT CLAMPED. NO BM AT THIS TIME. PUREWICK PRESENT. SKIN SEE ASSESSMENT. JOSY PICC TKO. FALL, SZ, AND CONTACT PRECAUTIONS IN PLACE. BED LOW AND LOCKED IN POSITION. EDUCATED PT ON PLAN OF CARE. WILL CONTINUE TO MONITOR PT.
[2019-04-29] MEDS: Heparin 5000 units/ml inj SUBQ SCH ×2 (09:00→20:08)
[2019-04-29] MEDS: levETIRAcetam 500mg/5ml Liquid GT SCH ×2 (09:13→20:07)
[2019-04-29] MEDS: Sorbitol Solution UD 30ml GT SCH (09:14)
--- NOTE | 2019-04-29 09:57 | NUR ---
NURSE NOTES: MD HER HERE TO SEE PT. RECEIVED CLARIFICATION FOR CT ORDER, WANTS CT OF ABDOMEN ONLY WITH IV CONTRAST. NO ADDITIONAL PROBLEMS IDENTIFIED.
--- NOTE | 2019-04-29 10:50 | NUR ---
RD ASSESSMENT & RECOMMENDATIONS SEE CARE ACTIVITY FOR COMPLETE ASSESSMENT DAILY ESTIMATED NEEDS: Needs based on Pulmonary, wounds, bedbound/ 61kg adj 25-30 kcals/kg 1956-2082 total kcals 1.25-2 g protein/kg 76-122 g total protein 25-30 mL/kg 8862-3842 total fluid mLs NUTRITION DIAGNOSIS: * Increased kcal/prot needs R/T wound healing as evidenced by BL buttocks and sacral wound photos, refer to WC eval-> wounds resolving, sacrum healed. * Swallowing difficulty R/T respiratory status as evidenced by pt on T-collar, s/p G-J conversion CURRENT TF:Vital AF 1.2 @ 60ml/hr x 24 hrs ENTERAL NUTRITION RECOMMENDATIONS: VITAL AF 1.2 @ 60ml/hr x 24 hrs to provide 1440ml, 1728kcal, 108g prot, 1167ml free water - Maintain current TF as tolerated-> meets 100% est needs - HOB over 30 degrees - increase water flushes (BUN elevated) ADDITIONAL RECOMMENDATIONS: 1) Maintain calibrated bedscale wt: fluctuating daily wts 2) Wound healing: maintain Cristian BID for skin integrity 3) Monitor BGs closely, need for NISS -> now w/ improved BGs 4) Monitor for continued good TF tolerance 5) BUN trending up -> rec to ADD water flushes or IVF . .
--- NOTE | 2019-04-29 11:30 | Nephrology Progress Note ---
Assessment/Plan Problem List: (1) Acute renal failure (ARF) Assessment: Cr stable (2) Chronic respiratory failure (3) Anemia (4) Sepsis Assessment Acute renal failure Respiratory failure - Trach Low Mag- Low k , Low Na Anemia UTI / Sepsis Proteinuria / HypoAlbuminemia high Trigs Sz decubs bed bound DNR Plan checked labs Transfused previously now has JT bolus Albumin as needed K and Mag and Phos supplement as needed Hydrate as needed Urine studies avoid Nephrotoxics mag K Phos supplements as needed monitor renal parameters Subjective ROS Limited/Unobtainable: Yes Objective Objective Last 24 Hour Vital Signs Date Time Temp Pulse Resp B/P (MAP) Pulse Ox O2 Delivery O2 Flow Rate FiO2 04/29/19 10:00 84 21 143/65 (91) 96 04/29/19 09:00 82 20 126/31 (62) 99 04/29/19 08:30 81 18 125/38 (67) 98 04/29/19 08:00 T-piece 5.0 T-piece 5.0 04/29/19 08:00 98.3 82 21 125/38 (67) 98 04/29/19 08:00 8.0 28 04/29/19 08:00 69 04/29/19 07:18 100 T-Piece 6.0 28 04/29/19 07:17 78 20 100 T-Piece 6.0 28 04/29/19 07:16 75 19 100 T-Piece 6.0 28 79 19 100 04/29/19 07:00 84 18 138/79 (98) 96 04/29/19 06:00 80 18 127/50 (75) 98 04/29/19 05:00 78 18 136/37 (70) 99 04/29/19 04:00 T-piece 5.0 T-piece 5.0 04/29/19 04:00 98.3 79 19 117/35 (62) 96 04/29/19 04:00 5.0 28 04/29/19 03:50 80 04/29/19 03:00 81 20 112/40 (64) 96 04/29/19 02:48 80 22 98 T-Piece 6.0 28 77 23 96 04/29/19 02:00 78 24 112/45 (67) 96 04/29/19 01:00 81 25 119/44 (69) 97 04/29/19 00:44 97 T-Piece 6.0 28 04/29/19 00:00 5.0 28 04/29/19 00:00 98.4 82 20 128/32 (64) 97 04/29/19 00:00 T-piece 5.0 T-piece 5.0 04/28/19 23:43 82 04/28/19 23:00 96 20 152/46 (81) 99 04/28/19 22:10 81 20 99 T-Piece 6.0 28 78 19 98 04/28/19 22:00 80 20 109/41 (63) 97 04/28/19 21:00 83 19 114/53 (73) 97 04/28/19 20:06 86 04/28/19 20:00 5.0 28 04/28/19 20:00 98.5 84 20 128/39 (68) 98 04/28/19 20:00 T-piece 5.0 T-piece 5.0 04/28/19 19:11 98 T-Piece 6.0 04/28/19 19:10 82 21 99 T-Piece 6.0 28 80 22 97 04/28/19 19:00 80 21 115/50 (71) 96 04/28/19 18:00 81 21 113/61 (78) 97 04/28/19 17:00 86 23 123/53 (76) 99 04/28/19 16:00 79 04/28/19 16:00 5.0 04/28/19 16:00 T-piece 5.0 T-piece 5.0 04/28/19 16:00 98.5 81 19 117/48 (71) 98 04/28/19 15:46 80 22 100 T-Piece 6.0 28 86 22 98 04/28/19 15:00 83 20 120/44 (69) 98 04/28/19 14:00 85 14 128/55 (79) 100 04/28/19 13:00 81 20 133/48 (76) 99 04/28/19 12:52 100 T-Piece 6.0 04/28/19 12:00 T-piece 5.0 T-piece 5.0 04/28/19 12:00 84 04/28/19 12:00 98.7 83 22 105/56 (72) 96 04/28/19 12:00 5.0 28 Intake and Output 04/28/19 04/29/19 19:00 07:00 Intake Total 1010 ml 640 ml Output Total 765 ml 500 ml Balance 245 ml 140 ml Free Water 300 ml 200 ml Tube Feeding 360 ml 240 ml Other 350 ml 200 ml Output Urine Total 150 ml 300 ml Gastric Drainage Total 575 ml 200 ml Emesis 40 ml # Voids 2 # Bowel Movements 1 Laboratory Tests 04/29/19 04:00: Sodium Level 145, Potassium Level 4.8, Chloride Level 105, Carbon Dioxide Level 31, Anion Gap 10, Blood Urea Nitrogen 80H, Creatinine 1.2, Estimat Glomerular Filtration Rate , Glucose Level 90, Calcium Level 9.5, Total Bilirubin 0.3, Aspartate Amino Transf (AST/SGOT) 55H, Alanine Aminotransferase (ALT/SGPT) 164H , Alkaline Phosphatase 178H, Total Protein 9.0H, Albumin 3.2L, Globulin 5.8, Albumin/Globulin Ratio 0.6L, Anti-Nuclear Antibody Screen [Pending], F-Actin IgG Antibody [Pending], Pamela-Monsivais Virus Capsid Ag IgM Ab [Pending], Herpes Simplex Virus I IgM Ab (IFA) [Pending], Herpes Simplex Virus II IgM Ab (IFA [ Pending] Height (Feet): 5 Height (Inches): 3.00 Weight (Pounds): 125 EENT: other - trach to O2 Cardiovascular: normal rate Respiratory/Chest: decreased breath sounds Abdomen: distended Objective no change Eric Cortez MD Apr 29, 2019 11:30
[2019-04-29 11:49] LABS: PHOSPHORUS 5.2 MG/DL (2.5-4.9)
--- NOTE | 2019-04-29 12:00 | NUR ---
NURSE NOTES: LATE ENTRY: pt resting in bed. vss 02sat 100%. secretions minimal. pt repositioned and cleaned, one loose brown bm. oral care and suction provided ax temp 98.8. pt on p 200 mattress and pillows elevated extremities. hobn >30. pt in no acute distress.
--- NOTE | 2019-04-29 12:28 | NUR ---
[employer] W[employer]NER SI: RESP FAILURE TRACH/COOL AEROSOL T. 98.3 HR 82 RR 21 B/P 123/88 T-BAR 28% BUN 80 AST 53 ALT 164 ALK PHOS 178 IS; HEPARIN SUBC ALB HHN PLACEMENT PENDING ICU STATUS
--- NOTE | 2019-04-29 12:46 | Infectious Diseases Prog Note ---
Assessment/Plan Assessment/Plan A 1. Providencia & Klebsiella pneumonia treated 2. respiratory failure 3. hypertension 4. CVA 5. dementia 6. sacral decubitus ulcer 7. rectal VRE colonization 8. Anemia 9. Proteus UTI 10. Acute renal failure 11. Leukocytosis resolved P 1.Observe off antibiotic 2. Frequent suctioning 3. Remove PICC line before discharge Subjective ROS Limited/Unobtainable: Yes Constitutional: Denies: fever Allergies: Coded Allergies: CODEINE (Verified Allergy, Unknown, HIVES, 09/15/09) Objective Vital Signs Last 24 Hour Vital Signs Date Time Temp Pulse Resp B/P (MAP) Pulse Ox O2 Delivery O2 Flow Rate FiO2 04/29/19 12:00 78 25 100 T-Piece 6.0 28 76 22 99 04/29/19 10:00 84 21 143/65 (91) 96 04/29/19 09:00 82 20 126/31 (62) 99 04/29/19 08:30 81 18 125/38 (67) 98 04/29/19 08:00 T-piece 5.0 T-piece 5.0 04/29/19 08:00 98.3 82 21 125/38 (67) 98 04/29/19 08:00 8.0 28 04/29/19 08:00 69 04/29/19 07:18 100 T-Piece 6.0 28 04/29/19 07:17 78 20 100 T-Piece 6.0 28 04/29/19 07:16 75 19 100 T-Piece 6.0 28 79 19 100 04/29/19 07:00 84 18 138/79 (98) 96 04/29/19 06:00 80 18 127/50 (75) 98 04/29/19 05:00 78 18 136/37 (70) 99 04/29/19 04:00 T-piece 5.0 T-piece 5.0 04/29/19 04:00 98.3 79 19 117/35 (62) 96 04/29/19 04:00 5.0 28 04/29/19 03:50 80 04/29/19 03:00 81 20 112/40 (64) 96 04/29/19 02:48 80 22 98 T-Piece 6.0 28 77 23 96 04/29/19 02:00 78 24 112/45 (67) 96 04/29/19 01:00 81 25 119/44 (69) 97 04/29/19 00:44 97 T-Piece 6.0 28 04/29/19 00:00 5.0 28 04/29/19 00:00 98.4 82 20 128/32 (64) 97 04/29/19 00:00 T-piece 5.0 T-piece 5.0 04/28/19 23:43 82 04/28/19 23:00 96 20 152/46 (81) 99 04/28/19 22:10 81 20 99 T-Piece 6.0 28 78 19 98 04/28/19 22:00 80 20 109/41 (63) 97 04/28/19 21:00 83 19 114/53 (73) 97 04/28/19 20:06 86 04/28/19 20:00 5.0 28 04/28/19 20:00 98.5 84 20 128/39 (68) 98 04/28/19 20:00 T-piece 5.0 T-piece 5.0 04/28/19 19:11 98 T-Piece 6.0 28 04/28/19 19:10 82 21 99 T-Piece 6.0 28 80 22 97 04/28/19 19:00 80 21 115/50 (71) 96 04/28/19 18:00 81 21 113/61 (78) 97 04/28/19 17:00 86 23 123/53 (76) 99 04/28/19 16:00 79 04/28/19 16:00 5.0 28 04/28/19 16:00 T-piece 5.0 T-piece 5.0 04/28/19 16:00 98.5 81 19 117/48 (71) 98 04/28/19 15:46 80 22 100 T-Piece 6.0 28 86 22 98 04/28/19 15:00 83 20 120/44 (69) 98 04/28/19 14:00 85 14 128/55 (79) 100 04/28/19 13:00 81 20 133/48 (76) 99 04/28/19 12:52 100 T-Piece 6.0 28 Height (Feet): 5 Height (Inches): 3.00 Weight (Pounds): 125 HEENT: status post trach Respiratory/Chest: lungs clear, other - on Tbar Cardiovascular: normal rate, other - R arm PICC line Abdomen: soft, non tender, other - GT feeding Extremities: no edema Neurologic/Psychiatric: unresponsiveness, aphasia Laboratory Tests Test 04/29/19 04:00 Sodium Level 145 MMOL/L (136-145) Potassium Level 4.8 MMOL/L (3.5-5.1) Chloride Level 105 MMOL/L (98-107) Carbon Dioxide Level 31 MMOL/L (21-32) Anion Gap 10 mmol/L (5-15) Blood Urea Nitrogen 80 mg/dL (7-18) H Creatinine 1.2 MG/DL (0.55-1.30) Estimat Glomerular Filtration Rate mL/min (>60) Glucose Level 90 MG/DL (74-106) Calcium Level 9.5 MG/DL (8.5-10.1) Phosphorus Level 5.2 MG/DL (2.5-4.9) H Magnesium Level 3.0 MG/DL (1.8-2.4) H Total Bilirubin 0.3 MG/DL (0.2-1.0) Aspartate Amino Transf (AST/SGOT) 55 U/L (15-37) H Alanine Aminotransferase (ALT/SGPT) 164 U/L (12-78) H Alkaline Phosphatase 178 U/L (46-116) H Total Protein 9.0 G/DL (6.4-8.2) H Albumin 3.2 G/DL (3.4-5.0) L Globulin 5.8 g/dL Albumin/Globulin Ratio 0.6 (1.0-2.7) L Anti-Nuclear Antibody Screen Pending F-Actin IgG Antibody Pending Pamela-Monsivais Virus Capsid Ag IgM Ab Pending Herpes Simplex Virus I IgM Ab (IFA) Pending Herpes Simplex Virus II IgM Ab (IFA Pending Current Medications Medications (Trade) Dose Ordered Sig/Maicol Route PRN Reason Start Time Stop Time Status Last Admin Dose Admin Albuterol/ Ipratropium (Albuterol/ Ipratropium) 3 ml Q4HRT HHN 04/25/19 19:00 04/30/19 18:59 04/29/19 12:03 Atropine Sulfate (Atropine Opth Adriana) 1 drop THREE TIMES A DAY SL 04/08/19 09:00 05/07/19 20:59 04/29/19 09:14 Barium Sulfate (Readi-Cat 2) 450 ml NOW PRN ORAL Radiology Procedure 04/28/19 21:30 04/30/19 21:23 Chlorhexidine Gluconate (Cesilia-Hex 2%) 1 applic DAILY@2000 TOPIC 04/12/19 20:00 05/12/19 19:59 04/28/19 20:10 Heparin Sodium (Porcine) (Heparin 5000 units/ml) 5,000 units EVERY 12 HOURS SUBQ 04/01/19 10:00 05/01/19 09:59 04/28/19 20:11 Hydralazine HCl (Apresoline) 25 mg Q6H PRN ORAL SBP above 150 04/06/19 02:45 05/06/19 02:44 04/06/19 11:15 Iohexol (OMNIPAQUE-300 100ml) 100 ml NOW PRN INJ Radiology Procedure 04/28/19 21:30 04/30/19 21:23 Levetiracetam (Keppra) 750 mg Q12HR GT 04/28/19 09:00 05/28/19 08:59 04/29/19 09:13 Sorbitol (Sorbitol) 30 ml BIDPRN PRN ORAL Constipation 04/13/19 11:15 05/13/19 11:14 Sorbitol (sorbitoL) 30 ml DAILY GT 04/14/19 09:00 05/14/19 08:59 04/29/19 09:14 Chauncey Liriano MD Apr 29, 2019 12:46
--- NOTE | 2019-04-29 16:00 | NUR ---
NURSE NOTES: LATE ENTRY: PT OPENS EYES TO SHAKING. CONTRACTED UPPER EXTREMITIES. FOOT DROP BILATERAL. BILATERAL PUPILS 3MM SLUGGISH. BLINK REFLEX ABSENT. STRENGTH UPPER AND LOWER 0/5. TRACH DEPENDENT SHILEY 6. T-PIECE 28%, 5L. VSS. LUNG SOUNDS UPPER LOBES RHONCHI, LOWER LOBES DIMINISHED. ABDOMEN ROUND, SOFT, NON TENDER. BOWEL SOUNDS HYPOACTIVE ALL QUADRANTS. PT NPO. PUREWICK DRAINING LIGHT MOY URINE. BLADDER FLAT. COOL TO TOUCH AND MOIST. AFEBRILE. PICC JOSY RUNNING TKO. CONTACT AND SZ PRECAUTIONS IN PLACE. BED LOCKED, IN LOWEST POSITION, SIDE RAILS X3. BED ALARM ON. WILL CONTINUE TO IMPLEMENT PLAN OF CARE.
--- NOTE | 2019-04-29 17:35 | Pulmonology Progress Note ---
Assessment/Plan Assessment/Plan Impression: history of Sepsis history of Pneumonia Trach, G tube, Hypertension, Cardiac disease, Dementia, Previous CVA, Seizure disorder, Respiratory failure with hypoxia Anemia, Sacral ulcer renal cyst chronic pulmonary congestion Plan monitor as is continue with respiratory care monitor protein levels monitor labs and reflux aspiration elevate head and monitor secretions DNR. No CPR. ICU care reviewed meds noted off load as able nutrition/fees/ dietary skin care difficulty with placement monitor residual and reflux aspiration all changes noted and discussed chronic management reviewed medications/laboratory data/nursing notes/ICU care reviewed in detail note reviewed and edited care discussed with RN and RT Subjective ROS Limited/Unobtainable: Yes Allergies: Coded Allergies: CODEINE (Verified Allergy, Unknown, HIVES, 09/15/09) Subjective overnight events noted; weekend care reviewed d/w all ICU care issues discussed bed bound and obtunded discussed with primary Objective Last 24 Hour Vital Signs Date Time Temp Pulse Resp B/P (MAP) Pulse Ox O2 Delivery O2 Flow Rate FiO2 04/29/19 16:00 75 04/29/19 15:46 71 14 100 T-Piece 6.0 28 72 16 100 04/29/19 15:00 83 17 119/52 (74) 99 04/29/19 14:00 83 18 119/55 (76) 99 04/29/19 13:09 100 T-Piece 6.0 28 04/29/19 13:00 80 21 124/46 (72) 98 04/29/19 12:00 T-piece 5.0 T-piece 5.0 04/29/19 12:00 78 25 100 T-Piece 6.0 28 76 22 99 04/29/19 12:00 5.0 28 04/29/19 12:00 98.5 77 19 128/44 (72) 99 04/29/19 12:00 82 04/29/19 11:00 77 23 123/45 (71) 97 04/29/19 10:00 84 21 143/65 (91) 96 04/29/19 09:00 82 20 126/31 (62) 99 04/29/19 08:30 81 18 125/38 (67) 98 04/29/19 08:00 T-piece 5.0 T-piece 5.0 04/29/19 08:00 98.3 82 21 125/38 (67) 98 04/29/19 08:00 8.0 28 04/29/19 08:00 69 04/29/19 07:18 100 T-Piece 6.0 28 04/29/19 07:17 78 20 100 T-Piece 6.0 28 04/29/19 07:16 75 19 100 T-Piece 6.0 28 79 19 100 04/29/19 07:00 84 18 138/79 (98) 96 04/29/19 06:00 80 18 127/50 (75) 98 04/29/19 05:00 78 18 136/37 (70) 99 04/29/19 04:00 T-piece 5.0 T-piece 5.0 04/29/19 04:00 98.3 79 19 117/35 (62) 96 04/29/19 04:00 5.0 28 04/29/19 03:50 80 04/29/19 03:00 81 20 112/40 (64) 96 04/29/19 02:48 80 22 98 T-Piece 6.0 28 77 23 96 04/29/19 02:00 78 24 112/45 (67) 96 04/29/19 01:00 81 25 119/44 (69) 97 04/29/19 00:44 97 T-Piece 6.0 28 04/29/19 00:00 5.0 28 04/29/19 00:00 98.4 82 20 128/32 (64) 97 04/29/19 00:00 T-piece 5.0 T-piece 5.0 04/28/19 23:43 82 04/28/19 23:00 96 20 152/46 (81) 99 04/28/19 22:10 81 20 99 T-Piece 6.0 28 78 19 98 04/28/19 22:00 80 20 109/41 (63) 97 04/28/19 21:00 83 19 114/53 (73) 97 04/28/19 20:06 86 04/28/19 20:00 5.0 28 04/28/19 20:00 98.5 84 20 128/39 (68) 98 04/28/19 20:00 T-piece 5.0 T-piece 5.0 04/28/19 19:11 98 T-Piece 6.0 28 04/28/19 19:10 82 21 99 T-Piece 6.0 28 80 22 97 04/28/19 19:00 80 21 115/50 (71) 96 04/28/19 18:00 81 21 113/61 (78) 97 Intake and Output 04/28/19 04/29/19 19:00 07:00 Intake Total 1010 ml 640 ml Output Total 765 ml 500 ml Balance 245 ml 140 ml Free Water 300 ml 200 ml Tube Feeding 360 ml 240 ml Other 350 ml 200 ml Output Urine Total 150 ml 300 ml Gastric Drainage Total 575 ml 200 ml Emesis 40 ml # Voids 2 # Bowel Movements 1 Objective WDWN NAD contracted off vent reduced breath sounds bilaterally without rhonchi or wheeze [id number] without MRG NABS nontender no HSM no CC trace edema same nonfocal nonverbal trach and gt reviewed and edited Laboratory Tests 04/29/19 04:00: Sodium Level 145, Potassium Level 4.8, Chloride Level 105, Carbon Dioxide Level 31, Anion Gap 10, Blood Urea Nitrogen 80H, Creatinine 1.2, Estimat Glomerular Filtration Rate , Glucose Level 90, Calcium Level 9.5, Phosphorus Level 5.2H, Magnesium Level 3.0H, Total Bilirubin 0.3, Aspartate Amino Transf (AST/SGOT) 55H , Alanine Aminotransferase (ALT/SGPT) 164H, Alkaline Phosphatase 178H, Total Protein 9.0H, Albumin 3.2L, Globulin 5.8, Albumin/Globulin Ratio 0.6L, Anti- Nuclear Antibody Screen [Pending], F-Actin IgG Antibody [Pending], Pamela-Monsivais Virus Capsid Ag IgM Ab [Pending], Herpes Simplex Virus I IgM Ab (IFA) [Pending] , Herpes Simplex Virus II IgM Ab (IFA [Pending] Current Medications Medications (Trade) Dose Ordered Sig/Maicol Route PRN Reason Start Time Stop Time Status Last Admin Dose Admin Albuterol/ Ipratropium (Albuterol/ Ipratropium) 3 ml Q4HRT HHN 04/25/19 19:00 04/30/19 18:59 04/29/19 15:47 Atropine Sulfate (Atropine Opth Adriana) 1 drop THREE TIMES A DAY SL 04/08/19 09:00 05/07/19 20:59 04/29/19 14:01 Barium Sulfate (Readi-Cat 2) 450 ml NOW PRN ORAL Radiology Procedure 04/28/19 21:30 04/30/19 21:23 Chlorhexidine Gluconate (Cesilia-Hex 2%) 1 applic DAILY@2000 TOPIC 04/12/19 20:00 05/12/19 19:59 04/28/19 20:10 Heparin Sodium (Porcine) (Heparin 5000 units/ml) 5,000 units EVERY 12 HOURS SUBQ 04/01/19 10:00 05/01/19 09:59 04/28/19 20:11 Hydralazine HCl (Apresoline) 25 mg Q6H PRN ORAL SBP above 150 04/06/19 02:45 05/06/19 02:44 04/06/19 11:15 Iohexol (OMNIPAQUE-300 100ml) 100 ml NOW PRN INJ Radiology Procedure 04/28/19 21:30 04/30/19 21:23 Levetiracetam (Keppra) 750 mg Q12HR GT 04/28/19 09:00 05/28/19 08:59 04/29/19 09:13 Sorbitol (Sorbitol) 30 ml BIDPRN PRN ORAL Constipation 04/13/19 11:15 05/13/19 11:14 Sorbitol (sorbitoL) 30 ml DAILY GT 04/14/19 09:00 05/14/19 08:59 04/29/19 09:14 Amaury Chan MD Apr 29, 2019 17:35
--- NOTE | 2019-04-29 18:00 | NUR ---
NURSE NOTES: DAUGHTER HERE TO SEE PT. WILL NOT GIVE CONSENT UNTIL CLEAR REGARDING RENAL FUNCTION AND IV CONTRAST FROM CT SCAN. WILL INFORM M.D
--- NOTE | 2019-04-29 18:33 | NUR ---
NURSE NOTES: CALLED MD HER, CT NOT COMPLETED TODAY. PT REMAINS NPO. RECEIVED ORDER FOR 1/2 NS@100ML/HR TIMES 2L, RESTART TUBE FEED. RESUME NPO AT MIDNIGHT. WILL CALL AND SPEAK WITH DAUGHTER REGARDING RENAL FUNCTION
--- NOTE | 2019-04-29 19:00 | NUR ---
NURSE NOTES: DAUGHTER WILL CONSENT TO IV CONTRAST, BUT WILL RETURN TO FILL OUT PAPER WORK. ONCMADI ARAGON.
--- NOTE | 2019-04-29 19:07 | General Progress Note ---
Assessment/Plan Status: stable, progressing Assessment/Plan: Assessment - N/V - resolved with G --> J conversion - constipation - partly due to low residue formula used, good response to sorbitol - Elevated Alk phos / LFT - prior CT negative x 2 - but both w/o IV contrast - abd U/S negative, x 2 - check hepatitis serologies - negative - possibly MURRAY / Fatty liver - will monitor - Anemia with OB (-) stools - Resp failure, s/p Trach - dysphagia, s/p PEG --> GJ tube - OBS, vegetative obtunded unresponsive state, bedbound with contracted extremities, - h/o minor GJ tube site irritation - poor Prognosis Recommendations - daily sorbitol, and PRN sorbitol - Cristian BID - antibiotic ointment to GJT site PRN - aspiration precautions - elevate HOB - Vital AF 1.2 - check q 6 hour FS - transfuse to keep Hg > 7 - J tube feeds - G tube drain - Check CT with IV contrast pending Subjective Allergies: Coded Allergies: CODEINE (Verified Allergy, Unknown, HIVES, 09/15/09) Subjective above noted tolerating TF via J port d/w RN higher LFT noted Objective Last 24 Hour Vital Signs Date Time Temp Pulse Resp B/P (MAP) Pulse Ox O2 Delivery O2 Flow Rate FiO2 04/29/19 18:00 73 16 128/46 (73) 100 04/29/19 17:00 73 17 140/62 (88) 100 04/29/19 16:00 T-piece 5.0 T-piece 5.0 04/29/19 16:00 5.0 28 04/29/19 16:00 75 04/29/19 16:00 98.6 72 17 100 04/29/19 15:46 71 14 100 T-Piece 6.0 28 72 16 100 04/29/19 15:00 83 17 119/52 (74) 99 04/29/19 14:00 83 18 119/55 (76) 99 04/29/19 13:09 100 T-Piece 6.0 28 04/29/19 13:00 80 21 124/46 (72) 98 04/29/19 12:00 T-piece 5.0 T-piece 5.0 04/29/19 12:00 78 25 100 T-Piece 6.0 28 76 22 99 04/29/19 12:00 5.0 28 04/29/19 12:00 98.5 77 19 128/44 (72) 99 04/29/19 12:00 82 04/29/19 11:00 77 23 123/45 (71) 97 04/29/19 10:00 84 21 143/65 (91) 96 04/29/19 09:00 82 20 126/31 (62) 99 04/29/19 08:30 81 18 125/38 (67) 98 04/29/19 08:00 T-piece 5.0 T-piece 5.0 04/29/19 08:00 98.3 82 21 125/38 (67) 98 04/29/19 08:00 8.0 28 04/29/19 08:00 69 04/29/19 07:18 100 T-Piece 6.0 28 04/29/19 07:17 78 20 100 T-Piece 6.0 28 04/29/19 07:16 75 19 100 T-Piece 6.0 28 79 19 100 04/29/19 07:00 84 18 138/79 (98) 96 04/29/19 06:00 80 18 127/50 (75) 98 04/29/19 05:00 78 18 136/37 (70) 99 04/29/19 04:00 T-piece 5.0 T-piece 5.0 04/29/19 04:00 98.3 79 19 117/35 (62) 96 04/29/19 04:00 5.0 28 04/29/19 03:50 80 04/29/19 03:00 81 20 112/40 (64) 96 04/29/19 02:48 80 22 98 T-Piece 6.0 28 77 23 96 04/29/19 02:00 78 24 112/45 (67) 96 04/29/19 01:00 81 25 119/44 (69) 97 04/29/19 00:44 97 T-Piece 6.0 28 04/29/19 00:00 5.0 28 04/29/19 00:00 98.4 82 20 128/32 (64) 97 04/29/19 00:00 T-piece 5.0 T-piece 5.0 04/28/19 23:43 82 04/28/19 23:00 96 20 152/46 (81) 99 04/28/19 22:10 81 20 99 T-Piece 6.0 28 78 19 98 04/28/19 22:00 80 20 109/41 (63) 97 04/28/19 21:00 83 19 114/53 (73) 97 04/28/19 20:06 86 04/28/19 20:00 5.0 28 04/28/19 20:00 98.5 84 20 128/39 (68) 98 04/28/19 20:00 T-piece 5.0 T-piece 5.0 04/28/19 19:11 98 T-Piece 6.0 28 04/28/19 19:10 82 21 99 T-Piece 6.0 80 22 97 Intake and Output 04/28/19 04/29/19 19:00 07:00 Intake Total 1010 ml 640 ml Output Total 765 ml 500 ml Balance 245 ml 140 ml Free Water 300 ml 200 ml Tube Feeding 360 ml 240 ml Other 350 ml 200 ml Output Urine Total 150 ml 300 ml Gastric Drainage Total 575 ml 200 ml Emesis 40 ml # Voids 2 # Bowel Movements 1 Laboratory Tests 04/29/19 04:00: Sodium Level 145, Potassium Level 4.8, Chloride Level 105, Carbon Dioxide Level 31, Anion Gap 10, Blood Urea Nitrogen 80H, Creatinine 1.2, Estimat Glomerular Filtration Rate , Glucose Level 90, Calcium Level 9.5, Phosphorus Level 5.2H, Magnesium Level 3.0H, Total Bilirubin 0.3, Aspartate Amino Transf (AST/SGOT) 55H , Alanine Aminotransferase (ALT/SGPT) 164H, Alkaline Phosphatase 178H, Total Protein 9.0H, Albumin 3.2L, Globulin 5.8, Albumin/Globulin Ratio 0.6L, Anti- Nuclear Antibody Screen [Pending], F-Actin IgG Antibody [Pending], Pamela-Monsivais Virus Capsid Ag IgM Ab [Pending], Herpes Simplex Virus I IgM Ab (IFA) [Pending] , Herpes Simplex Virus II IgM Ab (IFA [Pending] Height (Feet): 5 Height (Inches): 3.00 Weight (Pounds): 125 Objective Debilitated AA woman non-verbal, obtunded NCAT (+) trach coarse BS RR obese abd, (+) GJT no edema (+) contractured extremities Celio Vaughan MD Apr 29, 2019 19:07
--- NOTE | 2019-04-29 19:34 | NUR ---
NURSE NOTES: Received patient from JEANNINE Miller. Will continue plan of care.
--- NOTE | 2019-04-29 19:35 | NUR ---
HAND-OFF: Report given to MAXIMO. RN, ENDORSED TUBE FEED START AND IV FLIUDS
--- NOTE | 2019-04-29 20:00 | NUR ---
NURSE NOTES: Patient is awake, eyes open but does not track. T-piece Shiley 6xlt @ 28% O2 saturating at 100%. Feeding started again with Vital AF @ 60ml/hr via J-tube- flushed with 150ml h2o. G-tube flushed with 100ml h2o and draining gastric content via gravity. Purewick in place and suctioning well. 04/02 NS @ 100ml/hr started via right upper arm PICC line. Daughter Chika leaving but will give consent later tonight for CT abdomen with contrast for tomorrow 04/30. Will put patient NPO at midnight. Turned and repositioned. Safety measures in place; bed low, locked and alarm is on. Suctioning provided by RT. Will continue plan of care.
[2019-04-29] MEDS: Dyna-Hex 2% Top Sol 2oz TOPIC SCH (20:07)
--- NOTE | 2019-04-29 22:00 | NUR ---
NURSE NOTES: Patient is sleeping comfortably. No signs of pain or distress. Suctioning provided. Vital signs are stable. Will continue to monitor.
--- NOTE | 2019-04-29 22:52 | NUR ---
NURSE NOTES: Patients daughter Chika request to be called or text of when CT abd would be done. Her cell phone:
[2019-04-30] VITALS (24 sets, daily range): BP systolic 93–206; BP diastolic 31–87
--- NOTE | 2019-04-30 | NUR ---
NURSE NOTES: Patient is comfortable. Oral care and suctioning provided. Turned and repositioned. Will continue to monitor.
--- NOTE | 2019-04-30 02:00 | NUR ---
NURSE NOTES: Patient is sleeping showing no signs of pain or distress. Vital signs stable. Will continue to monitor.
[2019-04-30] MEDS: Albuterol/Ipratropium 3ml neb HHN SCH ×7 (03:14→23:13)
--- NOTE | 2019-04-30 04:00 | NUR ---
NURSE NOTES: Patient is comfortable. Vital signs stable. Suctioning provided. NPO for AM CT abdomen w/ contrast, consent is signed by daughter.
[2019-04-30 04:25] LABS: ALANINE AMINOTRANSFERASE 138 U/L (12-78); ALBUMIN 3.2 G/DL (3.4-5.0); ALBUMIN/GLOBULIN RATIO 0.6 (1.0-2.7); ALKALINE PHOSPHATASE 174 U/L (46-116); ANION GAP 11 mmol/L (5-15); ASPARTATE AMINO TRANSFERASE 44 U/L (15-37); BILIRUBIN,TOTAL 0.3 MG/DL (0.2-1.0); BLOOD UREA NITROGEN 68 mg/dL (7-18); CALCIUM 9.4 MG/DL (8.5-10.1); CARBON DIOXIDE 29 MMOL/L (21-32); CHLORIDE 104 MMOL/L (98-107); CREATININE 1.1 MG/DL (0.55-1.30); POTASSIUM 4.3 MMOL/L (3.5-5.1); SODIUM 144 MMOL/L (136-145)
--- NOTE | 2019-04-30 06:00 | NUR ---
NURSE NOTES: Bed bath with london-hex given, linens changed, oral care done, suctioning provided, wound care done, turned and repositioned. Patient is comfortable. Safety measures in place. Will continue to monitor.
--- NOTE | 2019-04-30 07:23 | NUR ---
HAND-OFF: Report given to JEANNINE Miller.
--- NOTE | 2019-04-30 07:24 | General Progress Note ---
Assessment/Plan Problem List: (1) Seizure ICD Codes: R56.9 - Unspecified convulsions SNOMED: 45985127 (2) Anemia ICD Codes: D64.9 - Anemia, unspecified SNOMED: 481657463 Qualifiers: Qualified Codes: D64.9 - Anemia, unspecified (3) Sepsis ICD Codes: A41.9 - Sepsis, unspecified organism SNOMED: 94320132, 875548938 Qualifiers: Qualified Codes: A41.9 - Sepsis, unspecified organism (4) Respiratory failure with hypoxia ICD Codes: J96.91 - Respiratory failure, unspecified with hypoxia SNOMED: 90234130846057617 Qualifiers: Qualified Codes: J96.21 - Acute and chronic respiratory failure with hypoxia (5) HCAP (healthcare-associated pneumonia) ICD Codes: J18.9 - Pneumonia, unspecified organism SNOMED: 867532199, 137338355 (6) Sacral decubitus ulcer ICD Codes: L89.159 - Pressure ulcer of sacral region, unspecified stage SNOMED: 405612321 (7) HTN (hypertension) ICD Codes: I10 - Essential (primary) hypertension SNOMED: 83977553 (8) Chronic vegetative state ICD Codes: R40.3 - Persistent vegetative state SNOMED: 89128444 (9) Chronic respiratory failure ICD Codes: J96.10 - Chronic respiratory failure, unspecified whether with hypoxia or hypercapnia SNOMED: 48661548 (10) Limited mobility ICD Codes: Z74.09 - Other reduced mobility SNOMED: 9622685 Status: stable, progressing Assessment/Plan: vent as needed resp rx suctioning j tube feeds g port to gravity skin care sz rx check labs bowel regime dc planning Subjective ROS Limited/Unobtainable: No Constitutional: Reports: malaise, weakness HEENT: Reports: no symptoms Cardiovascular: Reports: no symptoms Respiratory: Reports: cough, shortness of breath, sputum Gastrointestinal/Abdominal: Reports: difficulty swallowing Genitourinary: Reports: no symptoms Neurologic/Psychiatric: Reports: pre-existing deficit, seizure Endocrine: Reports: no symptoms Hematologic/Lymphatic: Reports: no symptoms Allergies: Coded Allergies: CODEINE (Verified Allergy, Unknown, HIVES, 09/15/09) All Systems: reviewed and negative except above Subjective no events. no reports of bleeding. tolerating feeds, no vomiting. minimal secretions. no szs Objective Last 24 Hour Vital Signs Date Time Temp Pulse Resp B/P (MAP) Pulse Ox O2 Delivery O2 Flow Rate FiO2 04/30/19 07:00 78 18 129/43 (71) 100 04/30/19 06:44 100 T-Piece 6.0 28 04/30/19 06:00 85 24 132/44 (73) 100 04/30/19 05:00 80 18 134/42 (72) 100 04/30/19 04:00 T-piece 5.0 T-piece 5.0 04/30/19 04:00 5.0 28 04/30/19 04:00 98.1 81 17 140/45 (76) 100 04/30/19 03:31 86 04/30/19 03:15 79 20 100 T-Piece 6.0 28 77 20 99 04/30/19 03:00 79 19 124/35 (64) 100 04/30/19 02:00 82 20 157/50 (85) 98 04/30/19 01:21 100 T-Piece 6.0 28 04/30/19 01:00 82 19 131/46 (74) 98 04/30/19 00:00 T-piece 5.0 T-piece 5.0 04/30/19 00:00 97.5 87 22 139/37 (71) 97 04/30/19 00:00 100 04/29/19 23:11 88 20 100 T-Piece 6.0 28 86 20 99 04/29/19 23:00 91 21 149/50 (83) 100 04/29/19 22:00 84 17 127/45 (72) 100 04/29/19 21:00 91 21 153/39 (77) 100 04/29/19 20:03 100 T-Piece 6.0 28 04/29/19 20:00 T-piece 5.0 T-piece 5.0 04/29/19 20:00 75 20 100 T-Piece 6.0 28 72 20 98 04/29/19 20:00 5.0 28 04/29/19 20:00 98.1 75 17 132/40 (70) 100 04/29/19 19:36 100 04/29/19 19:36 72 04/29/19 19:00 71 17 134/43 (73) 100 04/29/19 18:00 73 16 128/46 (73) 100 04/29/19 17:00 73 17 140/62 (88) 100 04/29/19 16:00 T-piece 5.0 T-piece 5.0 04/29/19 16:00 5.0 28 04/29/19 16:00 75 04/29/19 16:00 98.6 72 17 100 04/29/19 15:46 71 14 100 T-Piece 6.0 28 72 16 100 04/29/19 15:00 83 17 119/52 (74) 99 04/29/19 14:00 83 18 119/55 (76) 99 04/29/19 13:09 100 T-Piece 6.0 28 04/29/19 13:00 80 21 124/46 (72) 98 04/29/19 12:00 T-piece 5.0 T-piece 5.0 04/29/19 12:00 78 25 100 T-Piece 6.0 28 76 22 99 04/29/19 12:00 5.0 28 04/29/19 12:00 98.5 77 19 128/44 (72) 99 04/29/19 12:00 82 04/29/19 11:00 77 23 123/45 (71) 97 04/29/19 10:00 84 21 143/65 (91) 96 04/29/19 09:00 82 20 126/31 (62) 99 04/29/19 08:30 81 18 125/38 (67) 98 04/29/19 08:00 T-piece 5.0 T-piece 5.0 04/29/19 08:00 98.3 82 21 125/38 (67) 98 04/29/19 08:00 8.0 28 04/29/19 08:00 69 Intake and Output 04/29/19 04/30/19 19:00 07:00 Intake Total 360 ml 1806.63 ml Output Total 1125 ml 700 ml Balance -765 ml 1106.63 ml Free Water 200 ml IV Total 1066.63 ml Tube Feeding 60 ml 240 ml Other 300 ml 300 ml Output Urine Total 1125 ml 200 ml Gastric Drainage Total 500 ml # Bowel Movements 1 Laboratory Tests 04/30/19 04:00: Sodium Level 144, Potassium Level 4.3, Chloride Level 104, Carbon Dioxide Level 29, Anion Gap 11, Blood Urea Nitrogen 68H, Creatinine 1.1, Estimat Glomerular Filtration Rate , Glucose Level 94, Calcium Level 9.4, Total Bilirubin 0.3, Aspartate Amino Transf (AST/SGOT) 44H, Alanine Aminotransferase (ALT/SGPT) 138H , Alkaline Phosphatase 174H, Total Protein 8.8H, Albumin 3.2L, Globulin 5.6, Albumin/Globulin Ratio 0.6L Height (Feet): 5 Height (Inches): 3.00 Weight (Pounds): 125 Objective General Appearance: WD/WN, confused. on trach collar Neck: supple Cardiovascular: normal rate, regular rhythm Respiratory/Chest: chest wall non-tender, rhonchi - bilaterally(minimal) Abdomen: normal bowel sounds, non tender, soft, no organomegaly Edema: no edema noted Arm (L), no edema noted Arm (R), no edema noted Leg (L), no edema noted Leg (R), no edema noted Pedal (L), no edema noted Pedal (R), no edema noted Generalized Neurologic: disoriented, unresponsive, aphasia Irvin Beltrán MD Apr 30, 2019 07:24
--- NOTE | 2019-04-30 07:30 | NUR ---
NURSE NOTES: LATE ENTRY: RECEIVED REPORT FROM MAXIMO Ramos PT IN BED. OBTUNDED. RESPONSIVE TO SHAKING. SR ON MONITOR. NO S/S OF PAIN. BILATERAL UPPER AND LOWER EXTREMITY CONTRACTURES. CR DRAINING URINE. PT TRACH LAINEY6 XTL T-PIECE 28% SATING 99%. DIET NPO FOR CT OF ABDOMEN TODAY, GT AND JT CLAMPED. NO BM AT THIS TIME. PUREWICK PRESENT. SKIN SEE ASSESSMENT. JOSY PICC TKO. FALL, SZ, AND CONTACT PRECAUTIONS IN PLACE. BED LOW AND LOCKED IN POSITION. EDUCATED PT ON PLAN OF CARE. WILL CONTINUE TO MONITOR PT.
--- NOTE | 2019-04-30 08:30 | NUR ---
NURSE NOTES: LATE ENTRY: MD Jm AMARO HERE TO SEE PT. NO NEW ORDERS AT THIS TIME.
--- NOTE | 2019-04-30 08:39 | Infectious Diseases Prog Note ---
Assessment/Plan Assessment/Plan A 1. Providencia & Klebsiella pneumonia treated 2. respiratory failure 3. hypertension 4. CVA 5. dementia 6. sacral decubitus ulcer 7. rectal VRE colonization 8. Anemia 9. Proteus UTI 10. Acute renal failure 11. Leukocytosis resolved P 1.Observe off antibiotic 2. Frequent suctioning 3. Remove PICC line before discharge Subjective ROS Limited/Unobtainable: Yes Constitutional: Denies: fever Allergies: Coded Allergies: CODEINE (Verified Allergy, Unknown, HIVES, 09/15/09) Objective Vital Signs Last 24 Hour Vital Signs Date Time Temp Pulse Resp B/P (MAP) Pulse Ox O2 Delivery O2 Flow Rate FiO2 04/30/19 07:00 78 18 129/43 (71) 100 04/30/19 06:54 77 20 100 T-Piece 6.0 28 79 24 99 04/30/19 06:44 100 T-Piece 6.0 28 04/30/19 06:00 85 24 132/44 (73) 100 04/30/19 05:00 80 18 134/42 (72) 100 04/30/19 04:00 T-piece 5.0 T-piece 5.0 04/30/19 04:00 5.0 28 04/30/19 04:00 98.1 81 17 140/45 (76) 100 04/30/19 03:31 86 04/30/19 03:15 79 20 100 T-Piece 6.0 28 77 20 99 04/30/19 03:00 79 19 124/35 (64) 100 04/30/19 02:00 82 20 157/50 (85) 98 04/30/19 01:21 100 T-Piece 6.0 28 04/30/19 01:00 82 19 131/46 (74) 98 04/30/19 00:00 T-piece 5.0 T-piece 5.0 04/30/19 00:00 97.5 87 22 139/37 (71) 97 04/30/19 00:00 100 04/29/19 23:11 88 20 100 T-Piece 6.0 28 86 20 99 04/29/19 23:00 91 21 149/50 (83) 100 04/29/19 22:00 84 17 127/45 (72) 100 04/29/19 21:00 91 21 153/39 (77) 100 04/29/19 20:03 100 T-Piece 6.0 28 04/29/19 20:00 T-piece 5.0 T-piece 5.0 04/29/19 20:00 75 20 100 T-Piece 6.0 28 72 20 98 04/29/19 20:00 5.0 28 04/29/19 20:00 98.1 75 17 132/40 (70) 100 04/29/19 19:36 100 04/29/19 19:36 72 04/29/19 19:00 71 17 134/43 (73) 100 04/29/19 18:00 73 16 128/46 (73) 100 04/29/19 17:00 73 17 140/62 (88) 100 04/29/19 16:00 T-piece 5.0 T-piece 5.0 04/29/19 16:00 5.0 28 04/29/19 16:00 75 04/29/19 16:00 98.6 72 17 100 04/29/19 15:46 71 14 100 T-Piece 6.0 28 72 16 100 04/29/19 15:00 83 17 119/52 (74) 99 04/29/19 14:00 83 18 119/55 (76) 99 04/29/19 13:09 100 T-Piece 6.0 04/29/19 13:00 80 21 124/46 (72) 98 04/29/19 12:00 T-piece 5.0 T-piece 5.0 04/29/19 12:00 78 25 100 T-Piece 6.0 28 76 22 99 04/29/19 12:00 5.0 28 04/29/19 12:00 98.5 77 19 128/44 (72) 99 04/29/19 12:00 82 04/29/19 11:00 77 23 123/45 (71) 97 04/29/19 10:00 84 21 143/65 (91) 96 04/29/19 09:00 82 20 126/31 (62) 99 Height (Feet): 5 Height (Inches): 3.00 Weight (Pounds): 125 General Appearance: no acute distress HEENT: status post trach Respiratory/Chest: lungs clear, other - on T bar Cardiovascular: normal rate, other - R arm PICC line Abdomen: soft, non tender, other - GT feeding Extremities: no edema Neurologic/Psychiatric: unresponsiveness, aphasia Laboratory Tests Test 04/30/19 04:00 Sodium Level 144 MMOL/L (136-145) Potassium Level 4.3 MMOL/L (3.5-5.1) Chloride Level 104 MMOL/L (98-107) Carbon Dioxide Level 29 MMOL/L (21-32) Anion Gap 11 mmol/L (5-15) Blood Urea Nitrogen 68 mg/dL (7-18) H Creatinine 1.1 MG/DL (0.55-1.30) Estimat Glomerular Filtration Rate mL/min (>60) Glucose Level 94 MG/DL (74-106) Calcium Level 9.4 MG/DL (8.5-10.1) Total Bilirubin 0.3 MG/DL (0.2-1.0) Aspartate Amino Transf (AST/SGOT) 44 U/L (15-37) H Alanine Aminotransferase (ALT/SGPT) 138 U/L (12-78) H Alkaline Phosphatase 174 U/L (46-116) H Total Protein 8.8 G/DL (6.4-8.2) H Albumin 3.2 G/DL (3.4-5.0) L Globulin 5.6 g/dL Albumin/Globulin Ratio 0.6 (1.0-2.7) L Current Medications Medications (Trade) Dose Ordered Sig/Maicol Route PRN Reason Start Time Stop Time Status Last Admin Dose Admin Albuterol/ Ipratropium (Albuterol/ Ipratropium) 3 ml Q4HRT HHN 04/25/19 19:00 04/30/19 18:59 04/30/19 06:44 Atropine Sulfate (Atropine Opth Adriana) 1 drop THREE TIMES A DAY SL 04/08/19 09:00 05/07/19 20:59 04/29/19 18:44 Barium Sulfate (Readi-Cat 2) 450 ml NOW PRN ORAL Radiology Procedure 04/28/19 21:30 04/30/19 21:23 Chlorhexidine Gluconate (Cesilia-Hex 2%) 1 applic DAILY@1999 TOPIC 04/12/19 20:00 05/12/19 19:59 04/29/19 20:07 Heparin Sodium (Porcine) (Heparin 5000 units/ml) 5,000 units EVERY 12 HOURS SUBQ 04/01/19 10:00 05/01/19 09:59 04/29/19 20:08 Hydralazine HCl (Apresoline) 25 mg Q6H PRN ORAL SBP above 150 04/06/19 02:45 05/06/19 02:44 04/06/19 11:15 Iohexol (OMNIPAQUE-300 100ml) 100 ml NOW PRN INJ Radiology Procedure 04/28/19 21:30 04/30/19 21:23 Levetiracetam (Keppra) 750 mg Q12HR GT 04/28/19 09:00 05/28/19 08:59 04/29/19 20:07 Sodium Chloride 1,000 ml @ 100 mls/hr Q10H IV 04/29/19 20:00 04/30/19 15:59 04/30/19 06:37 Sorbitol (Sorbitol) 30 ml BIDPRN PRN ORAL Constipation 04/13/19 11:15 05/13/19 11:14 Sorbitol (sorbitoL) 30 ml DAILY GT 04/14/19 09:00 05/14/19 08:59 04/29/19 09:14 Chauncey Liriano MD Apr 30, 2019 08:39
[2019-04-30] MEDS: Heparin 5000 units/ml inj SUBQ SCH ×2 (09:00→20:53)
--- NOTE | 2019-04-30 09:16 | Nephrology Progress Note ---
Assessment/Plan Problem List: (1) Acute renal failure (ARF) Assessment: Cr stable (2) Chronic respiratory failure (3) Anemia (4) Sepsis Assessment Acute renal failure Respiratory failure - Trach Low Mag- Low k , Low Na Anemia UTI / Sepsis Proteinuria / HypoAlbuminemia high Trigs Sz decubs bed bound DNR Plan Transfused previously now has JT bolus Albumin as needed K and Mag and Phos supplement as needed Hydrate as needed Urine studies avoid Nephrotoxics mag K Phos supplements as needed monitor renal parameters Subjective ROS Limited/Unobtainable: Yes Objective Objective Last 24 Hour Vital Signs Date Time Temp Pulse Resp B/P (MAP) Pulse Ox O2 Delivery O2 Flow Rate FiO2 04/30/19 07:00 78 18 129/43 (71) 100 04/30/19 06:54 77 20 100 T-Piece 6.0 28 79 24 99 04/30/19 06:44 100 T-Piece 6.0 28 04/30/19 06:00 85 24 132/44 (73) 100 04/30/19 05:00 80 18 134/42 (72) 100 04/30/19 04:00 T-piece 5.0 T-piece 5.0 04/30/19 04:00 5.0 28 04/30/19 04:00 98.1 81 17 140/45 (76) 100 04/30/19 03:31 86 04/30/19 03:15 79 20 100 T-Piece 6.0 28 77 20 99 04/30/19 03:00 79 19 124/35 (64) 100 04/30/19 02:00 82 20 157/50 (85) 98 04/30/19 01:21 100 T-Piece 6.0 28 04/30/19 01:00 82 19 131/46 (74) 98 04/30/19 00:00 T-piece 5.0 T-piece 5.0 04/30/19 00:00 97.5 87 22 139/37 (71) 97 04/30/19 00:00 100 04/29/19 23:11 88 20 100 T-Piece 6.0 28 86 20 99 04/29/19 23:00 91 21 149/50 (83) 100 04/29/19 22:00 84 17 127/45 (72) 100 04/29/19 21:00 91 21 153/39 (77) 100 04/29/19 20:03 100 T-Piece 6.0 28 04/29/19 20:00 T-piece 5.0 T-piece 5.0 04/29/19 20:00 75 20 100 T-Piece 6.0 28 72 20 98 04/29/19 20:00 5.0 28 04/29/19 20:00 98.1 75 17 132/40 (70) 100 04/29/19 19:36 100 04/29/19 19:36 72 04/29/19 19:00 71 17 134/43 (73) 100 04/29/19 18:00 73 16 128/46 (73) 100 04/29/19 17:00 73 17 140/62 (88) 100 04/29/19 16:00 T-piece 5.0 T-piece 5.0 04/29/19 16:00 5.0 28 04/29/19 16:00 75 04/29/19 16:00 98.6 72 17 100 04/29/19 15:46 71 14 100 T-Piece 6.0 28 72 16 100 04/29/19 15:00 83 17 119/52 (74) 99 04/29/19 14:00 83 18 119/55 (76) 99 04/29/19 13:09 100 T-Piece 6.0 04/29/19 13:00 80 21 124/46 (72) 98 04/29/19 12:00 T-piece 5.0 T-piece 5.0 04/29/19 12:00 78 25 100 T-Piece 6.0 28 76 22 99 04/29/19 12:00 5.0 28 04/29/19 12:00 98.5 77 19 128/44 (72) 99 04/29/19 12:00 82 04/29/19 11:00 77 23 123/45 (71) 97 04/29/19 10:00 84 21 143/65 (91) 96 Intake and Output 04/29/19 04/30/19 19:00 07:00 Intake Total 360 ml 1806.63 ml Output Total 1125 ml 700 ml Balance -765 ml 1106.63 ml Free Water 200 ml IV Total 1066.63 ml Tube Feeding 60 ml 240 ml Other 300 ml 300 ml Output Urine Total 1125 ml 200 ml Gastric Drainage Total 500 ml # Bowel Movements 1 Laboratory Tests 04/30/19 04:00: Sodium Level 144, Potassium Level 4.3, Chloride Level 104, Carbon Dioxide Level 29, Anion Gap 11, Blood Urea Nitrogen 68H, Creatinine 1.1, Estimat Glomerular Filtration Rate , Glucose Level 94, Calcium Level 9.4, Total Bilirubin 0.3, Aspartate Amino Transf (AST/SGOT) 44H, Alanine Aminotransferase (ALT/SGPT) 138H , Alkaline Phosphatase 174H, Total Protein 8.8H, Albumin 3.2L, Globulin 5.6, Albumin/Globulin Ratio 0.6L Height (Feet): 5 Height (Inches): 3.00 Weight (Pounds): 125 General Appearance: no apparent distress EENT: other - trach to O2 Cardiovascular: normal rate Respiratory/Chest: decreased breath sounds Abdomen: distended Objective no change Eric Cortez MD Apr 30, 2019 09:16
--- NOTE | 2019-04-30 09:30 | NUR ---
NURSE NOTES: LATE ENTRY: MD RAYMOND HERE TO SEE PT. NO NEW ORDERS AT THIS TIME.
[2019-04-30] MEDS: Sorbitol Solution UD 30ml GT SCH (09:37)
[2019-04-30] MEDS: levETIRAcetam 500mg/5ml Liquid GT SCH ×2 (09:37→20:51)
--- NOTE | 2019-04-30 10:00 | NUR ---
NURSE NOTES: CALLED STEPHANIE NAIK TO OBTAIN CONSENT FOR IV CONTRAST. ABLE TO OBTAIN CONSENT. TWO NURSE WITNESS.
--- NOTE | 2019-04-30 11:00 | NUR ---
NURSE NOTES: PT GIVEN FULL BED BATH, LOTION AND DRESSINGS CHANGED. SUCTION AND ORAL ARE GIVEN. INCREASED TRACH SECRETIONS, MODERATE AMOUNT OF FROTHY SECRETIONS. A FEBRILE. REPOSITIONED. BLANCHABLE REDNESS ON RT CALF. ELEVATED ON PILLOWS.
--- NOTE | 2019-04-30 12:55 | NUR ---
NURSE NOTES: LATE ENTRY: MD MOLINA HERE TO SEE PT. NO NEW ORDERS AT THIS TIME.
--- NOTE | 2019-04-30 12:56 | Surgery Progress Note ---
Surgery Progress Note Subjective Additional Comments no acute events comfortable appearing US noted Ct pending labs with lft's Objective Last 24 Hour Vital Signs Date Time Temp Pulse Resp B/P (MAP) Pulse Ox O2 Delivery O2 Flow Rate FiO2 04/30/19 12:45 100 T-Piece 6.0 28 04/30/19 12:00 91 04/30/19 11:00 85 18 149/50 (83) 100 04/30/19 10:43 74 20 100 T-Piece 6.0 28 68 16 100 04/30/19 10:00 70 19 127/53 (77) 100 04/30/19 09:00 72 17 111/34 (59) 99 04/30/19 08:00 5.0 28 04/30/19 08:00 T-piece 5.0 T-piece 5.0 04/30/19 08:00 74 04/30/19 08:00 97.9 77 19 107/31 (56) 100 04/30/19 07:00 78 18 129/43 (71) 100 04/30/19 06:54 77 20 100 T-Piece 6.0 28 79 24 99 04/30/19 06:44 100 T-Piece 6.0 28 04/30/19 06:00 85 24 132/44 (73) 100 04/30/19 05:00 80 18 134/42 (72) 100 04/30/19 04:00 T-piece 5.0 T-piece 5.0 04/30/19 04:00 5.0 28 04/30/19 04:00 98.1 81 17 140/45 (76) 100 04/30/19 03:31 86 04/30/19 03:15 79 20 100 T-Piece 6.0 28 77 20 99 04/30/19 03:00 79 19 124/35 (64) 100 04/30/19 02:00 82 20 157/50 (85) 98 04/30/19 01:21 100 T-Piece 6.0 28 04/30/19 01:00 82 19 131/46 (74) 98 04/30/19 00:00 T-piece 5.0 T-piece 5.0 04/30/19 00:00 97.5 87 22 139/37 (71) 97 04/30/19 00:00 100 04/29/19 23:11 88 20 100 T-Piece 6.0 28 86 20 99 04/29/19 23:00 91 21 149/50 (83) 100 04/29/19 22:00 84 17 127/45 (72) 100 04/29/19 21:00 91 21 153/39 (77) 100 04/29/19 20:03 100 T-Piece 6.0 28 04/29/19 20:00 T-piece 5.0 T-piece 5.0 04/29/19 20:00 75 20 100 T-Piece 6.0 28 72 20 98 04/29/19 20:00 5.0 28 04/29/19 20:00 98.1 75 17 132/40 (70) 100 04/29/19 19:36 100 04/29/19 19:36 72 04/29/19 19:00 71 17 134/43 (73) 100 04/29/19 18:00 73 16 128/46 (73) 100 04/29/19 17:00 73 17 140/62 (88) 100 04/29/19 16:00 T-piece 5.0 T-piece 5.0 04/29/19 16:00 5.0 28 04/29/19 16:00 75 04/29/19 16:00 98.6 72 17 100 04/29/19 15:46 71 14 100 T-Piece 6.0 28 72 16 100 04/29/19 15:00 83 17 119/52 (74) 99 04/29/19 14:00 83 18 119/55 (76) 99 04/29/19 13:09 100 T-Piece 6.0 28 04/29/19 13:00 80 21 124/46 (72) 98 I&O Intake and Output 04/29/19 04/30/19 19:00 07:00 Intake Total 360 ml 1806.63 ml Output Total 1215 ml 700 ml Balance -855 ml 1106.63 ml Free Water 200 ml IV Total 1066.63 ml Tube Feeding 60 ml 240 ml Other 300 ml 300 ml Output Urine Total 1125 ml 200 ml Gastric Drainage Total 90 ml 500 ml # Bowel Movements 1 Dressing: other Wound: other Drains: other Cardiovascular: RSR Respiratory: decreased breath sounds Abdomen: soft, present bowel sounds Extremities: no tenderness, no cyanosis Laboratory Tests Test 04/30/19 04:00 Sodium Level 144 MMOL/L (136-145) Potassium Level 4.3 MMOL/L (3.5-5.1) Chloride Level 104 MMOL/L (98-107) Carbon Dioxide Level 29 MMOL/L (21-32) Anion Gap 11 mmol/L (5-15) Blood Urea Nitrogen 68 mg/dL (7-18) H Creatinine 1.1 MG/DL (0.55-1.30) Estimat Glomerular Filtration Rate mL/min (>60) Glucose Level 94 MG/DL (74-106) Calcium Level 9.4 MG/DL (8.5-10.1) Total Bilirubin 0.3 MG/DL (0.2-1.0) Aspartate Amino Transf (AST/SGOT) 44 U/L (15-37) H Alanine Aminotransferase (ALT/SGPT) 138 U/L (12-78) H Alkaline Phosphatase 174 U/L (46-116) H Total Protein 8.8 G/DL (6.4-8.2) H Albumin 3.2 G/DL (3.4-5.0) L Globulin 5.6 g/dL Albumin/Globulin Ratio 0.6 (1.0-2.7) L Plan Problems: (1) Sacral decubitus ulcer Assessment & Plan: This is a 83-year-old female with multiple medical committees that is currently admitted for medical care and management and identified to have multiple wounds requiring care. On admission patient noted to have a resolved sacral decubitus ulcer. Has had prior care and is well-healed at this time. Will ensure it does not open up again. Patient has a right ischial decubitus ulcer that is resolved. Scar intact and well formed. Will monitor to ensure it does not open up again. Patient has a left ischial decubitus ulcer that can be identified to be stage IV with palpable bone that has been resolving as noted by the periwound tissue and scar but open area approximately 1 cm x 1.5 cm few millimeters deep to bone identified. Unsure if this is been to be completely healed prior and has since opened or if has been healing at this level. No foul odor no drainage was unsure local wound care until healed Bilateral heels soft without signs of injury Resolving pressure injury L ischium(L)1.8cm x (W)1cm.Scattered biofilm at base of wound. Edges flat and adherent with surrounding hyperpigmentation. No odor or exudate noted. Sacrum is pale pink with surrounding hyperpigmentation. Hyperpigmentation R ischium with small sheared area centrally.No areas of erythema or exudate noted. Both heels are soft but blanchable. Skin Assessed under collar of trach and no evidence of skin breakdown noted. All wound Tx. are effective and continued as ordered. Pt ahs an APM/Belén mattress overlay and is being repositioned per protocols and per tolerance.No new skin concerns noted. Full thickness pressure injury L Ischium with small amt biofilm (L)1.8cm x (W) 1cm. Surrounding pink hyperpigmentation. No odor or exudate noted. [place] hyperpigmentation from previous wound noted to sacrum. Pt also noted to have Cat 2 Skin Tear dorsal L hand, L 5th metatarsal extending into palm of hand. 80% skin flap in situ.Both heels are dry firm and blanchable. No other skin concerns noted. R ischial wound has resolved. [place] epithelial with surrounding hyperpigmentation. from historical wound. Full thickness pressure injury L ischium. [place] granulation at base of wound. Borders are macerated with Surrounding hyperpigmentation.Small amt non-odorous serous exudate noted.(L)0.7cm x (W)0.8cm. Skin hyperpigmentation from historical wound noted to Sacrum. Small sheared area noted to sacrococcygeal area.(L)0.4cm x (W)0.3cm.Small amt sanguineous exudate noted. Reabsorbed blister with semi-detached dry necrotic cap noted to web space of L thumb and L index fingers extending into palm of L hand. No odor or exudate noted. Skin assessed under tracheal collar and no erythema or evidence of Skin Breakdown noted. NO new skin concerns noted . Good hand hygiene provided to both hands. R hand contracted and fisted. Fingernails trimmed. Wound care provided along with Primary nurse. Wound Tx continued as ordered. New order obtained from to apply Betadine to wound L hand Daily. Tx done as ordered. L hand wrapped with kerlix weaving kerlix between fingers to separate fingers. Moisture Barrier applied to sacrum ,R ischium. Each site covered with Optifoam drsg. Both lower ext washed and moisturized. Cavilon Skin Barrier applied to both heels.Each heel covered with Optifoam drsgs. Pt positioned with pillows and both heels off-loaded with pillow. Pt wounds are resolving. Loose necrotic cap within web space of L index finger and L thumb easily removed with gentle friction. Base of wound is hypergranular with 10% necrosis. Borders are macerated. Application of Silver Nitrate to hypergranular base done. Cavilon Skin Barrier applied to borders . Good hand hygiene provided. Wound covered with Abd pad. L hand wrapped with Kerlix weaving Kerlix between digitsof L hand. Pressure injury L ischium resolving. Base iof wound is pale pink and dry with surrounding hyperpigmentation and scar from previous wound. Hyperpigmentation with historical scars noted to Sacrum and R ischium. Both heels are soft and blanchable. Skin Assessed under trach collar and no evidence of skin breakdown noted. Tx.Plan: Apply Betadine to wound L hand. Cover with Gauze and wrap with Kerlix Daily and prn. Cleanse L ischial wound with Saline. Apply Therahoney. Apply Moisture Barrier periwound. Cover with Optifoam drsgevery 3 days and prn. Apply Moisture Barrier Paste to R ischium and Sacrum. Cover each area with Optifoam drsg. Change every 3 days and prn. Apply Cavilon Skin Barrier to both heels. Cover each heel with Optifoam drsg. Change every 7 days and prn. Cleanse Blister Dorsal and palm of L hand with saline. Versatel One Silicone Contact Layer(Applied). Apply Silvasorb Gel. Wrap with Kerlix Gauze.Change every 7 days and prn. Apply Moisture Barrier to sacrum. Cover with Optifoam drsg. Change every 3 days and prn. APM/BELÉN Mattress overlay. Reposition at least every 2hours or as tolerated. Off-load heels with pillow. Nutritional optimization We will monitor follow with recommendations cont with above upon d/c wounds healing overall improving (2) Sepsis Assessment & Plan: IV abx as per ID trend labs improving wounds unlikely etiology likely respiratory imaging noted and okay abnormal lft's stable PICC on Abx in ICU for desaturation CXR with consolidation cont with frequent suctioning d/c planning g j via GI daughter wants close attention to wounds and management to ensure healing Evidence of left lower lobe pneumonia, also previously demonstrated Gastrostomy in good position Mild diastasis of the rectus abdominis musculature again demonstrated Retrosacral decubitus changes, better depicted on prior exam which included the pelvis Small hiatal hernia with evidence of trace gastroesophageal reflux Discussed with GI. Recommend GJ family still pending decision transfuse prbc prn monitor h/h monitor bm LFTs improving trending down (3) Feeding by G-tube Assessment & Plan: DAILY ESTIMATED NEEDS: Needs based on Pulmonary, wounds, bedbound/ 61kg adj 25-30 kcals/kg 9579-9697 total kcals 1.25-2 g protein/kg 76-122 g total protein 25-30 mL/kg 3441-9459 total fluid mLs NUTRITION DIAGNOSIS: * Increased kcal/prot needs R/T wound healing as evidenced by BL buttocks and sacral wound photos, refer to eval. * Swallowing difficulty R/T respiratory status as evidenced by pt on T-collar, s/p G-J conversion CURRENT TF:Glucerna 1.5 @ 50ml/hr x 24 hrs ENTERAL NUTRITION RECOMMENDATIONS: Glucerna 1.5 @ 50ml/hr x 24 hrs to provide 1200ml, 1800 kcal, 99g pro, 911ml free H2O - Maintain at current rate as tolerated to meet 100% est needs - HOB over 30 degrees - INCREASE water flush of 170ml q 6 hrs ADDITIONAL RECOMMENDATIONS: 1) RE-calibrate bedscale wt: fluctuating daily wts (108#-136# last 6 days) 2) Wound healing: Add Cristian 1pkt BID w/ continued good TF tolerance. 3) Increase water flushes, monitor for signs of water deficits 4) Monitor BGs closely, need for NISS -> now w/ improved BGs 5) Monitor for continued good TF tolerance 6) Monitor K : elev K on 03/25, s/p Kdur BID, now dc'ed. (4) Chronic vegetative state Assessment & Plan: incontinence of urine and stool. can soil dressings. nurses doing great job with monitoring and changing prn (5) Leukocytosis Walter Madera Apr 30, 2019 12:55
--- NOTE | 2019-04-30 13:12 | NUR ---
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 97.9 HR 78 RR 19 B/P 107/31 T-PIECE FIO2 28% AST 44 ALT 130 ALK PHOS 174 IS: IVF NS @ 100ML/HR KEPPRA SORBITOL ALB HHN PLACEMENT PENDING ICU STATUS
--- NOTE | 2019-04-30 13:14 | NUR ---
TRAIN CONTROL ELECTRONIC TECHNICIAN NOTES INQUIRY FAXED TO [facility], SPOKE WITH TEA NO BEDS @ THIS TIME. DCP ONGOING. SPOKE WITH LUCIANA FROM [facility], NO BEDS AVAILABLE AT THIS TIME.
--- NOTE | 2019-04-30 14:00 | NUR ---
NURSE NOTES: LATE ENTRY: TRANSPORT HERE FOR CT SCAN. PT TRANSFERRED TO [facility]. MEDHAT 98%. PT ON MONITOR TRANSFERRED TO [facility]. VSS.
--- NOTE | 2019-04-30 14:35 | NUR ---
NURSE NOTES: LATE ENTRY: PT BACK ON UNIT. CONNECTED TO MONITOR. PT SUCTIONED AND GIVEN BREATHING TREATMENT. VS.
--- NOTE | 2019-04-30 15:39 | Diagnostic Imaging Report ---
Clinical Indication: Abdominal pain Technique: Patient given enteric contrast IV administration nonionic contrast. Multiphasic spiral acquisitions obtained through the abdomen. Multiplanar reconstructions were generated. Total dose length product 1141 mGycm. CTDIvol(s) 27 mGy. Dose reduction achieved using automated exposure control Comparison: 02/17/2019 noncontrast study Findings: Previously demonstrated gastrostomy tube has been converted to a gastrojejunostomy. Gastrostomy balloon is in good position. The shaft of the jejunostomy portion coils in the upper gastric fundus, and the tip is in the proximal jejunum just beyond the ligament of Treitz. The distal esophagus is unremarkable. Contrast is seen within the colon. The visualized bowel demonstrates no significant distention. There is diastasis of the rectus abdominis tendon again demonstrated. The appendix is visualized, normal. The liver, gallbladder, bile ducts, pancreas, spleen, adrenals, right kidney are unremarkable. The left kidney demonstrates a large interpolar region cyst. No retroperitoneal or mesenteric mass or adenopathy. The included lung bases demonstrate groundglass opacities, right greater than left, and areas of scarring or atelectasis on the left. Previously demonstrated left lower lobe dense consolidation has improved The bones demonstrate a very slight superior endplate compression fracture deformity of the L3 vertebral body, also evident previously. Previously reported retrosacral decubitus changes are not included in the current imaging volume Impression: Interim conversion of gastrostomy to gastrojejunostomy, jejunostomy tube tip at the origin of the jejunum, just beyond the ligament of Treitz No acute abdominal abnormality Mild bilateral basilar pulmonary parenchymal groundglass opacities, right greater than left, nonspecific, could indicate atelectasis, edema, or inflammation. May also be in part due to motion artifact. There are also atelectatic changes or scarring on the left L3 vertebral body mild superior endplate compression fracture deformity, also demonstrated on prior January 2019 exam and therefore not acute. Incidental findings as noted, including rectus abdominis tendon diastasis, large left renal cyst The CT scanner at [facility] is accredited by the [employer] and the scans are performed using protocols designed to limit radiation exposure to as low as reasonably achievable to attain images of sufficient resolution adequate for diagnostic evaluation.
--- NOTE | 2019-04-30 16:18 | Pulmonology Progress Note ---
Assessment/Plan Assessment/Plan Impression: history of Sepsis history of Pneumonia Trach, G tube, Hypertension, Cardiac disease, Dementia, Previous CVA, Seizure disorder, Respiratory failure with hypoxia Anemia, Sacral ulcer renal cyst chronic pulmonary congestion Plan monitor as is continue with respiratory care monitor protein levels doubt CT findings of significant concern at present; would monitor monitor labs and reflux aspiration elevate head and monitor secretions DNR. No CPR. ICU care reviewed meds noted off load as able nutrition/fees/ dietary skin care difficulty with placement monitor residual and reflux aspiration all changes noted and discussed chronic management reviewed medications/laboratory data/nursing notes/ICU care reviewed in detail note reviewed and edited care discussed with RN and RT Subjective ROS Limited/Unobtainable: Yes Allergies: Coded Allergies: CODEINE (Verified Allergy, Unknown, HIVES, 09/15/09) Subjective overnight events noted; weekend care reviewed d/w all ICU care issues discussed bed bound and obtunded discussed with primary had CT abdomen GI intervention noted Objective Last 24 Hour Vital Signs Date Time Temp Pulse Resp B/P (MAP) Pulse Ox O2 Delivery O2 Flow Rate FiO2 04/30/19 14:50 86 16 100 T-Piece 6.0 28 86 12 99 04/30/19 14:00 87 21 153/76 (101) 99 04/30/19 13:00 92 22 160/78 (105) 99 04/30/19 12:45 100 T-Piece 6.0 28 04/30/19 12:00 91 04/30/19 12:00 97.7 92 19 164/59 (94) 99 04/30/19 11:00 85 18 149/50 (83) 100 04/30/19 10:43 74 20 100 T-Piece 6.0 28 68 16 100 04/30/19 10:00 70 19 127/53 (77) 100 04/30/19 09:00 72 17 111/34 (59) 99 04/30/19 08:00 5.0 28 04/30/19 08:00 T-piece 5.0 T-piece 5.0 04/30/19 08:00 74 04/30/19 08:00 97.9 77 19 107/31 (56) 100 04/30/19 07:00 78 18 129/43 (71) 100 04/30/19 06:54 77 20 100 T-Piece 6.0 28 79 24 99 04/30/19 06:44 100 T-Piece 6.0 28 04/30/19 06:00 85 24 132/44 (73) 100 04/30/19 05:00 80 18 134/42 (72) 100 04/30/19 04:00 T-piece 5.0 T-piece 5.0 04/30/19 04:00 5.0 28 04/30/19 04:00 98.1 81 17 140/45 (76) 100 04/30/19 03:31 86 04/30/19 03:15 79 20 100 T-Piece 6.0 28 77 20 99 04/30/19 03:00 79 19 124/35 (64) 100 04/30/19 02:00 82 20 157/50 (85) 98 04/30/19 01:21 100 T-Piece 6.0 28 04/30/19 01:00 82 19 131/46 (74) 98 04/30/19 00:00 T-piece 5.0 T-piece 5.0 04/30/19 00:00 97.5 87 22 139/37 (71) 97 04/30/19 00:00 100 04/29/19 23:11 88 20 100 T-Piece 6.0 28 86 20 99 04/29/19 23:00 91 21 149/50 (83) 100 04/29/19 22:00 84 17 127/45 (72) 100 04/29/19 21:00 91 21 153/39 (77) 100 04/29/19 20:03 100 T-Piece 6.0 28 04/29/19 20:00 T-piece 5.0 T-piece 5.0 04/29/19 20:00 75 20 100 T-Piece 6.0 28 72 20 98 04/29/19 20:00 5.0 28 04/29/19 20:00 98.1 75 17 132/40 (70) 100 04/29/19 19:36 100 04/29/19 19:36 72 04/29/19 19:00 71 17 134/43 (73) 100 04/29/19 18:00 73 16 128/46 (73) 100 04/29/19 17:00 73 17 140/62 (88) 100 Intake and Output 04/29/19 04/30/19 19:00 07:00 Intake Total 360 ml 1806.63 ml Output Total 1215 ml 700 ml Balance -855 ml 1106.63 ml Free Water 200 ml IV Total 1066.63 ml Tube Feeding 60 ml 240 ml Other 300 ml 300 ml Output Urine Total 1125 ml 200 ml Gastric Drainage Total 90 ml 500 ml # Bowel Movements 1 Objective WDWN NAD contracted off vent reduced breath sounds bilaterally without rhonchi or wheeze [id number] without MRG NABS nontender no HSM no CC trace edema same nonfocal nonverbal trach and gt reviewed and edited Laboratory Tests 04/30/19 04:00: Sodium Level 144, Potassium Level 4.3, Chloride Level 104, Carbon Dioxide Level 29, Anion Gap 11, Blood Urea Nitrogen 68H, Creatinine 1.1, Estimat Glomerular Filtration Rate , Glucose Level 94, Calcium Level 9.4, Total Bilirubin 0.3, Aspartate Amino Transf (AST/SGOT) 44H, Alanine Aminotransferase (ALT/SGPT) 138H , Alkaline Phosphatase 174H, Total Protein 8.8H, Albumin 3.2L, Globulin 5.6, Albumin/Globulin Ratio 0.6L Current Medications Medications (Trade) Dose Ordered Sig/Maicol Route PRN Reason Start Time Stop Time Status Last Admin Dose Admin Albuterol/ Ipratropium (Albuterol/ Ipratropium) 3 ml Q4HRT HHN 04/30/19 15:00 05/05/19 14:59 Atropine Sulfate (Atropine Opth Adriana) 1 drop THREE TIMES A DAY SL 04/08/19 09:00 05/07/19 20:59 04/30/19 12:48 Barium Sulfate (Readi-Cat 2) 450 ml NOW PRN ORAL Radiology Procedure 04/28/19 21:30 04/30/19 21:23 Chlorhexidine Gluconate (Cesilia-Hex 2%) 1 applic DAILY@1999 TOPIC 04/12/19 20:00 05/12/19 19:59 04/29/19 20:07 Heparin Sodium (Porcine) (Heparin 5000 units/ml) 5,000 units EVERY 12 HOURS SUBQ 04/01/19 10:00 05/01/19 09:59 04/29/19 20:08 Hydralazine HCl (Apresoline) 25 mg Q6H PRN ORAL SBP above 150 04/06/19 02:45 05/06/19 02:44 04/06/19 11:15 Iohexol (OMNIPAQUE-300 100ml) 100 ml NOW PRN INJ Radiology Procedure 04/28/19 21:30 04/30/19 21:23 Levetiracetam (Keppra) 750 mg Q12HR GT 04/28/19 09:00 05/28/19 08:59 04/30/19 09:37 Sorbitol (Sorbitol) 30 ml BIDPRN PRN ORAL Constipation 04/13/19 11:15 05/13/19 11:14 Sorbitol (sorbitoL) 30 ml DAILY GT 04/14/19 09:00 05/14/19 08:59 04/30/19 09:37 Amaury Chan MD Apr 30, 2019 16:18
--- NOTE | 2019-04-30 16:18 | NUR ---
NURSE NOTES: LATE ENTRY: MD SHORE HERE TO SEE PT. NO NEW ORDERS AT THIS TIME.
--- NOTE | 2019-04-30 17:37 | NUR ---
NURSE NOTES: CALLED MD HER, CT OF ABDOMEN OBTAINED. ORDER TO RESUME TUBE FEEDINGS
--- NOTE | 2019-04-30 19:15 | NUR ---
RESPIRATORY NOTE: Received pt on 28% Cool Aerosol via T-Piece. Pt is trach-dependent w/ a cuffed, Shiley 6 XLT tube, cuff is currently deflated. Pt is asleep, responds to stimuli. B/S flory. rhonchi, sxn small to moderate amounts of thin/frothy, pale-yellow secretions. Ambubag at bedside. Pt resting comfortably, in no apparent distress at this time. Will continue to monitor pt.
--- NOTE | 2019-04-30 19:17 | NUR ---
HAND-OFF: Report given to JOSEE Ramos PT IN NO ACUTE DISTRESS.
--- NOTE | 2019-04-30 19:23 | General Progress Note ---
Assessment/Plan Status: stable, progressing Assessment/Plan: Assessment - N/V - resolved with G --> J conversion - constipation - partly due to low residue formula used, good response to sorbitol - Elevated Alk phos / LFT - Negative CT with IV contrast - abd U/S negative, x 2 - check hepatitis serologies - negative - possibly MURRAY / Fatty liver - will monitor - Anemia with OB (-) stools - Resp failure, s/p Trach - dysphagia, s/p PEG --> GJ tube - OBS, vegetative obtunded unresponsive state, bedbound with contracted extremities, - h/o minor GJ tube site irritation - poor Prognosis Recommendations - daily sorbitol, and PRN sorbitol - Cristian BID - antibiotic ointment to GJT site PRN - aspiration precautions - elevate HOB - Vital AF 1.2 - check q 6 hour FS - transfuse to keep Hg > 7 - J tube feeds - G tube drain - Check CT with IV contrast pending Subjective Allergies: Coded Allergies: CODEINE (Verified Allergy, Unknown, HIVES, 09/15/09) Subjective above noted CT with IV contrast negative for liver lesions Objective Last 24 Hour Vital Signs Date Time Temp Pulse Resp B/P (MAP) Pulse Ox O2 Delivery O2 Flow Rate FiO2 04/30/19 19:19 91 21 100 T-Piece 6.0 28 04/30/19 19:09 100 T-Piece 6.0 28 04/30/19 19:09 87 23 100 T-Piece 6.0 28 04/30/19 18:00 85 26 144/73 (96) 95 04/30/19 17:00 84 21 171/87 (115) 100 04/30/19 16:00 5.0 28 04/30/19 16:00 98.0 96 23 151/79 (103) 100 04/30/19 16:00 T-piece 5.0 T-piece 5.0 04/30/19 16:00 91 04/30/19 15:00 88 21 206/84 (124) 84 04/30/19 14:50 86 16 100 T-Piece 6.0 28 86 12 99 04/30/19 14:00 87 21 153/76 (101) 99 04/30/19 13:00 92 22 160/78 (105) 99 04/30/19 12:45 100 T-Piece 6.0 28 04/30/19 12:00 91 04/30/19 12:00 5.0 28 04/30/19 12:00 97.7 92 19 164/59 (94) 99 04/30/19 12:00 T-piece 5.0 T-piece 5.0 04/30/19 11:00 85 18 149/50 (83) 100 04/30/19 10:43 74 20 100 T-Piece 6.0 28 68 16 100 04/30/19 10:00 70 19 127/53 (77) 100 04/30/19 09:00 72 17 111/34 (59) 99 04/30/19 08:00 5.0 28 04/30/19 08:00 T-piece 5.0 T-piece 5.0 04/30/19 08:00 74 04/30/19 08:00 97.9 77 19 107/31 (56) 100 04/30/19 07:00 78 18 129/43 (71) 100 04/30/19 06:54 77 20 100 T-Piece 6.0 28 79 24 99 04/30/19 06:44 100 T-Piece 6.0 28 04/30/19 06:00 85 24 132/44 (73) 100 04/30/19 05:00 80 18 134/42 (72) 100 04/30/19 04:00 T-piece 5.0 T-piece 5.0 04/30/19 04:00 5.0 28 04/30/19 04:00 98.1 81 17 140/45 (76) 100 04/30/19 03:31 86 04/30/19 03:15 79 20 100 T-Piece 6.0 28 77 20 99 04/30/19 03:00 79 19 124/35 (64) 100 04/30/19 02:00 82 20 157/50 (85) 98 04/30/19 01:21 100 T-Piece 6.0 28 04/30/19 01:00 82 19 131/46 (74) 98 04/30/19 00:00 T-piece 5.0 T-piece 5.0 04/30/19 00:00 97.5 87 22 139/37 (71) 97 04/30/19 00:00 100 04/29/19 23:11 88 20 100 T-Piece 6.0 28 86 20 99 04/29/19 23:00 91 21 149/50 (83) 100 04/29/19 22:00 84 17 127/45 (72) 100 04/29/19 21:00 91 21 153/39 (77) 100 04/29/19 20:03 100 T-Piece 6.0 28 04/29/19 20:00 T-piece 5.0 T-piece 5.0 04/29/19 20:00 75 20 100 T-Piece 6.0 28 72 20 98 04/29/19 20:00 5.0 28 04/29/19 20:00 98.1 75 17 132/40 (70) 100 04/29/19 19:36 100 04/29/19 19:36 72 Intake and Output 04/29/19 04/30/19 19:00 07:00 Intake Total 360 ml 1806.63 ml Output Total 1215 ml 700 ml Balance -855 ml 1106.63 ml Free Water 200 ml IV Total 1066.63 ml Tube Feeding 60 ml 240 ml Other 300 ml 300 ml Output Urine Total 1125 ml 200 ml Gastric Drainage Total 90 ml 500 ml # Bowel Movements 1 Laboratory Tests 04/30/19 04:00: Sodium Level 144, Potassium Level 4.3, Chloride Level 104, Carbon Dioxide Level 29, Anion Gap 11, Blood Urea Nitrogen 68H, Creatinine 1.1, Estimat Glomerular Filtration Rate , Glucose Level 94, Calcium Level 9.4, Total Bilirubin 0.3, Aspartate Amino Transf (AST/SGOT) 44H, Alanine Aminotransferase (ALT/SGPT) 138H , Alkaline Phosphatase 174H, Total Protein 8.8H, Albumin 3.2L, Globulin 5.6, Albumin/Globulin Ratio 0.6L Height (Feet): 5 Height (Inches): 3.00 Weight (Pounds): 125 Objective Debilitated AA woman non-verbal, obtunded NCAT (+) trach coarse BS RR obese abd, (+) GJT no edema (+) contractured extremities Celio Vaughan MD Apr 30, 2019 19:22
--- NOTE | 2019-04-30 19:24 | NUR ---
NURSE NOTES: received report from cheryl mann obtunded upper extremities contracted lower extremities stiff tolerating tube feeding no residual iv infusing tko rt ua picc dressing dry and intact reposition and suction
[2019-04-30] MEDS: Dyna-Hex 2% Top Sol 2oz TOPIC SCH (20:51)
--- NOTE | 2019-04-30 22:00 | NUR ---
NURSE NOTES: REPOSITION AND SUCTION NO ACUTE RESP DISTRESS NOTED
[2019-05-01] VITALS (25 sets, daily range): BP systolic 95–162; BP diastolic 37–98
--- NOTE | 2019-05-01 | NUR ---
NURSE NOTES: TOLERATING TUBE NORESIDUAL
--- NOTE | 2019-05-01 02:00 | NUR ---
NURSE NOTES: reposition and suction no acute resp distress
[2019-05-01] MEDS: Albuterol/Ipratropium 3ml neb HHN SCH ×6 (03:28→23:38)
--- NOTE | 2019-05-01 04:00 | NUR ---
NURSE NOTES: complete bed bath oral care and back care wound care done reposition and suction
--- NOTE | 2019-05-01 06:00 | NUR ---
NURSE NOTES: asleep no acute resp distress noted
--- NOTE | 2019-05-01 07:00 | NUR ---
NURSE NOTES: Pt received from JEANNINE Aguilar without cardiopulmonary distress noted. Pt is awake in bed, opens eyes spontaneously, pupils are equal and round 4mm and sluggish to light reaction. Pt is SR to cardiac care nurse, afebrile 98.2 F ax. radial pulses palpable 2+ bilaterally and doralis pedis pulses 2+ bilaterally. cap refill 3 sec. Pt noted with T-piece on 5L O2 with FiO2 28. Lung sounds noted diminished in lower bilateral lobes. Left upper lobe noted with rhonchi upon expiration. The right upper lobe is CTA. GT noted with dry and intact dressing hooked to drainage bag with thick yellow gastric secretions. JT running Vital AF 1.2 at 60 cc/hr. no nausea or vomiting noted. Abd is round, soft, with active bowel sounds to all quadrants. Purewick noted draining yellow urine. Skin alterations noted. Pt has a JOSY PICC with dry and intact dressing running NS TKO at 10 cc/hr. Bed in lowest position, alarm on, side rails up x 2 and padded per seizure precaution, call light within reach, will continue to monitor.
--- NOTE | 2019-05-01 07:18 | NUR ---
HAND-OFF: Report given to kaleb mann using sbar.
--- NOTE | 2019-05-01 08:00 | NUR ---
NURSE NOTES: Right leg noted with area of redness and areas of dry skin to anterior and posterior aspects. BP cuff removed and skin moisturizer applied. No swelling noted. Bilateral dorsalis pedis pulses 1+ bilaterally. Left message for Dr Beltrán regarding findings. Pt in no acute distress.
--- NOTE | 2019-05-01 08:08 | General Progress Note ---
Assessment/Plan Problem List: (1) Seizure ICD Codes: R56.9 - Unspecified convulsions SNOMED: 36851507 (2) Anemia ICD Codes: D64.9 - Anemia, unspecified SNOMED: 706001343 Qualifiers: Qualified Codes: D64.9 - Anemia, unspecified (3) Sepsis ICD Codes: A41.9 - Sepsis, unspecified organism SNOMED: 35497026, 137172009 Qualifiers: Qualified Codes: A41.9 - Sepsis, unspecified organism (4) Respiratory failure with hypoxia ICD Codes: J96.91 - Respiratory failure, unspecified with hypoxia SNOMED: 87583128075160370 Qualifiers: Qualified Codes: J96.21 - Acute and chronic respiratory failure with hypoxia (5) HCAP (healthcare-associated pneumonia) ICD Codes: J18.9 - Pneumonia, unspecified organism SNOMED: 270600529, 013052733 (6) Sacral decubitus ulcer ICD Codes: L89.159 - Pressure ulcer of sacral region, unspecified stage SNOMED: 913951116 (7) HTN (hypertension) ICD Codes: I10 - Essential (primary) hypertension SNOMED: 64350011 (8) Chronic vegetative state ICD Codes: R40.3 - Persistent vegetative state SNOMED: 21416729 (9) Chronic respiratory failure ICD Codes: J96.10 - Chronic respiratory failure, unspecified whether with hypoxia or hypercapnia SNOMED: 90065570 (10) Limited mobility ICD Codes: Z74.09 - Other reduced mobility SNOMED: 2672750 Status: stable, progressing Assessment/Plan: vent as needed resp rx suctioning j tube feeds g port to gravity skin care sz rx check labs bowel regime dc planning Subjective Allergies: Coded Allergies: CODEINE (Verified Allergy, Unknown, HIVES, 09/15/09) Subjective no events. no reports of bleeding. tolerating feeds, no vomiting. minimal secretions. no szs Objective Last 24 Hour Vital Signs Date Time Temp Pulse Resp B/P (MAP) Pulse Ox O2 Delivery O2 Flow Rate FiO2 05/01/19 07:01 95 22 141/81 (101) 100 05/01/19 07:00 97 24 162/85 (110) 100 05/01/19 06:41 96 T-Piece 6.0 28 05/01/19 06:00 92 20 103/60 (74) 96 05/01/19 05:00 88 19 130/66 (87) 100 05/01/19 04:00 5.0 28 05/01/19 04:00 87 05/01/19 04:00 T-piece 5.0 T-piece 5.0 05/01/19 04:00 98.6 95 22 139/70 (93) 100 05/01/19 03:38 94 23 100 T-Piece 6.0 28 05/01/19 03:28 91 21 100 T-Piece 6.0 28 05/01/19 03:00 88 24 127/59 (81) 99 05/01/19 02:00 93 23 95/57 (70) 95 05/01/19 01:00 98 22 110/57 (74) 100 05/01/19 00:50 99 T-Piece 6.0 28 05/01/19 00:00 98.5 105 29 141/65 (90) 91 05/01/19 00:00 88 05/01/19 00:00 T-piece 5.0 T-piece 5.0 05/01/19 00:00 5.0 28 04/30/19 23:25 92 23 100 T-Piece 6.0 28 04/30/19 23:13 95 19 98 T-Piece 6.0 28 04/30/19 23:00 95 21 93/53 (66) 98 04/30/19 22:00 93 21 135/74 (94) 100 04/30/19 21:00 100 21 141/67 (91) 98 04/30/19 20:00 T-piece 5.0 T-piece 5.0 04/30/19 20:00 86 04/30/19 20:00 5.0 28 04/30/19 20:00 98.0 109 19 170/78 (108) 96 04/30/19 19:19 91 21 100 T-Piece 6.0 28 04/30/19 19:09 100 T-Piece 6.0 28 04/30/19 19:09 87 23 100 T-Piece 6.0 28 04/30/19 19:00 96 21 143/69 (93) 100 04/30/19 18:00 85 26 144/73 (96) 95 04/30/19 17:00 84 21 171/87 (115) 100 04/30/19 16:00 5.0 28 04/30/19 16:00 98.0 96 23 151/79 (103) 100 04/30/19 16:00 T-piece 5.0 T-piece 5.0 04/30/19 16:00 91 04/30/19 15:00 88 21 206/84 (124) 84 04/30/19 14:50 86 16 100 T-Piece 6.0 28 86 12 99 04/30/19 14:00 87 21 153/76 (101) 99 04/30/19 13:00 92 22 160/78 (105) 99 04/30/19 12:45 100 T-Piece 6.0 28 04/30/19 12:00 91 04/30/19 12:00 5.0 28 04/30/19 12:00 97.7 92 19 164/59 (94) 99 04/30/19 12:00 T-piece 5.0 T-piece 5.0 04/30/19 11:00 85 18 149/50 (83) 100 04/30/19 10:43 74 20 100 T-Piece 6.0 28 68 16 100 04/30/19 10:00 70 19 127/53 (77) 100 04/30/19 09:00 72 17 111/34 (59) 99 Intake and Output 04/30/19 05/01/19 19:00 07:00 Intake Total 1320 ml 1260 ml Output Total 980 ml 600 ml Balance 340 ml 660 ml Free Water 300 ml IV Total 1000 ml Tube Feeding 120 ml 660 ml Other 200 ml 300 ml Output Urine Total 340 ml 400 ml Gastric Drainage Total 640 ml 200 ml Height (Feet): 5 Height (Inches): 3.00 Weight (Pounds): 126 Objective General Appearance: WD/WN, confused. on trach collar Neck: supple Cardiovascular: normal rate, regular rhythm Respiratory/Chest: chest wall non-tender, rhonchi - bilaterally(minimal) Abdomen: normal bowel sounds, non tender, soft, no organomegaly Edema: no edema noted Arm (L), no edema noted Arm (R), no edema noted Leg (L), no edema noted Leg (R), no edema noted Pedal (L), no edema noted Pedal (R), no edema noted Generalized Neurologic: disoriented, unresponsive, aphasia Irvin Beltrán MD May 01, 2019 08:08
--- NOTE | 2019-05-01 08:33 | Pulmonology Progress Note ---
Assessment/Plan Assessment/Plan Impression: history of Sepsis history of Pneumonia Trach, G tube, Hypertension, Cardiac disease, Dementia, Previous CVA, Seizure disorder, Respiratory failure with hypoxia Anemia, Sacral ulcer renal cyst chronic pulmonary congestion Plan monitor for change continue with respiratory care monitor protein levels doubt CT findings of significant concern at present; CXR periodically monitor labs and reflux aspiration ;monitor residuals elevate head and monitor secretions DNR. No CPR. ICU care reviewed meds noted off load as able nutrition/fees/ dietary skin care difficulty with placement monitor residual and reflux aspiration all changes noted and discussed chronic management reviewed medications/laboratory data/nursing notes/ICU care reviewed in detail note reviewed and edited care discussed with RN and RT Subjective ROS Limited/Unobtainable: Yes Allergies: Coded Allergies: CODEINE (Verified Allergy, Unknown, HIVES, 09/15/09) Subjective overnight events noted; weekend care reviewed d/w all ICU care issues discussed bed bound and obtunded discussed with primary had CT abdomen GI intervention noted Objective Last 24 Hour Vital Signs Date Time Temp Pulse Resp B/P (MAP) Pulse Ox O2 Delivery O2 Flow Rate FiO2 05/01/19 08:00 5.0 28 05/01/19 08:00 87 18 123/67 (85) 100 05/01/19 08:00 T-piece 5.0 T-piece 5.0 T-piece 5.0 T-piece 5.0 05/01/19 08:00 88 05/01/19 07:01 95 22 141/81 (101) 100 05/01/19 07:00 97 24 162/85 (110) 100 05/01/19 06:41 96 T-Piece 6.0 28 05/01/19 06:00 92 20 103/60 (74) 96 05/01/19 05:00 88 19 130/66 (87) 100 05/01/19 04:00 5.0 28 05/01/19 04:00 87 05/01/19 04:00 T-piece 5.0 T-piece 5.0 05/01/19 04:00 98.6 95 22 139/70 (93) 100 05/01/19 03:38 94 23 100 T-Piece 6.0 28 05/01/19 03:28 91 21 100 T-Piece 6.0 28 05/01/19 03:00 88 24 127/59 (81) 99 05/01/19 02:00 93 23 95/57 (70) 95 05/01/19 01:00 98 22 110/57 (74) 100 05/01/19 00:50 99 T-Piece 6.0 28 05/01/19 00:00 98.5 105 29 141/65 (90) 91 05/01/19 00:00 88 05/01/19 00:00 T-piece 5.0 T-piece 5.0 05/01/19 00:00 5.0 28 04/30/19 23:25 92 23 100 T-Piece 6.0 28 04/30/19 23:13 95 19 98 T-Piece 6.0 28 04/30/19 23:00 95 21 93/53 (66) 98 04/30/19 22:00 93 21 135/74 (94) 100 04/30/19 21:00 100 21 141/67 (91) 98 04/30/19 20:00 T-piece 5.0 T-piece 5.0 04/30/19 20:00 86 04/30/19 20:00 5.0 28 04/30/19 20:00 98.0 109 19 170/78 (108) 96 04/30/19 19:19 91 21 100 T-Piece 6.0 28 04/30/19 19:09 100 T-Piece 6.0 28 04/30/19 19:09 87 23 100 T-Piece 6.0 28 04/30/19 19:00 96 21 143/69 (93) 100 04/30/19 18:00 85 26 144/73 (96) 95 04/30/19 17:00 84 21 171/87 (115) 100 04/30/19 16:00 5.0 28 04/30/19 16:00 98.0 96 23 151/79 (103) 100 04/30/19 16:00 T-piece 5.0 T-piece 5.0 04/30/19 16:00 91 04/30/19 15:00 88 21 206/84 (124) 84 04/30/19 14:50 86 16 100 T-Piece 6.0 28 86 12 99 04/30/19 14:00 87 21 153/76 (101) 99 04/30/19 13:00 92 22 160/78 (105) 99 1/30/20 12:45 100 T-Piece 6.0 28 04/30/19 12:00 91 04/30/19 12:00 5.0 28 04/30/19 12:00 97.7 92 19 164/59 (94) 99 04/30/19 12:00 T-piece 5.0 T-piece 5.0 04/30/19 11:00 85 18 149/50 (83) 100 04/30/19 10:43 74 20 100 T-Piece 6.0 28 68 16 100 04/30/19 10:00 70 19 127/53 (77) 100 04/30/19 09:00 72 17 111/34 (59) 99 Intake and Output 04/30/19 05/01/19 19:00 07:00 Intake Total 1320 ml 1260 ml Output Total 980 ml 600 ml Balance 340 ml 660 ml Free Water 300 ml IV Total 1000 ml Tube Feeding 120 ml 660 ml Other 200 ml 300 ml Output Urine Total 340 ml 400 ml Gastric Drainage Total 640 ml 200 ml Objective WDWN NAD contracted off vent reduced breath sounds bilaterally without rhonchi or wheeze [id number] without MRG NABS nontender no HSM no CC trace edema same nonfocal nonverbal trach and gt reviewed and edited Current Medications Medications (Trade) Dose Ordered Sig/Maicol Route PRN Reason Start Time Stop Time Status Last Admin Dose Admin Albuterol/ Ipratropium (Albuterol/ Ipratropium) 3 ml Q4HRT HHN 04/30/19 15:00 05/05/19 14:59 05/01/19 06:40 Atropine Sulfate (Atropine Opth Adriana) 1 drop THREE TIMES A DAY SL 04/08/19 09:00 05/07/19 20:59 04/30/19 17:56 Chlorhexidine Gluconate (Cesilia-Hex 2%) 1 applic DAILY@2000 TOPIC 04/12/19 20:00 05/12/19 19:59 04/30/19 20:51 Heparin Sodium (Porcine) (Heparin 5000 units/ml) 5,000 units EVERY 12 HOURS SUBQ 04/01/19 10:00 05/01/19 09:59 04/30/19 20:53 Hydralazine HCl (Apresoline) 25 mg Q6H PRN ORAL SBP above 150 04/06/19 02:45 05/06/19 02:44 04/06/19 11:15 Levetiracetam (Keppra) 750 mg Q12HR GT 04/28/19 09:00 05/28/19 08:59 04/30/19 20:51 Sorbitol (Sorbitol) 30 ml BIDPRN PRN ORAL Constipation 04/13/19 11:15 05/13/19 11:14 Sorbitol (sorbitoL) 30 ml DAILY GT 04/14/19 09:00 05/14/19 08:59 04/30/19 09:37 Amaury Chan MD May 01, 2019 08:33
[2019-05-01] MEDS: Sorbitol Solution UD 30ml GT SCH (08:51)
[2019-05-01] MEDS: levETIRAcetam 500mg/5ml Liquid GT SCH ×2 (08:51→20:03)
[2019-05-01] MEDS: Heparin 5000 units/ml inj SUBQ SCH ×2 (08:52→20:04)
--- NOTE | 2019-05-01 10:00 | NUR ---
NURSE NOTES: Pt repositioned and suctioned, no acute distress noted.
--- NOTE | 2019-05-01 10:32 | Infectious Diseases Prog Note ---
Assessment/Plan Assessment/Plan antibiotics : none A 1. pneumonia 2. respiratory failure 3. hypertension 4. CVA 5. dementia 6. sacral decubitus ulcer 7. rectal VRE colonization P 1. start cefepime 2. sputum culture 3. cr 4. will follow up cultures Subjective ROS Limited/Unobtainable: Yes Allergies: Coded Allergies: CODEINE (Verified Allergy, Unknown, HIVES, 09/15/09) Objective Vital Signs Last 24 Hour Vital Signs Date Time Temp Pulse Resp B/P (MAP) Pulse Ox O2 Delivery O2 Flow Rate FiO2 05/01/19 10:00 96 23 123/58 (79) 95 05/01/19 09:00 95 19 149/43 (78) 98 05/01/19 08:00 5.0 28 05/01/19 08:00 87 18 123/67 (85) 100 05/01/19 08:00 T-piece 5.0 T-piece 5.0 T-piece 5.0 T-piece 5.0 05/01/19 08:00 88 05/01/19 07:01 95 22 141/81 (101) 100 05/01/19 07:00 97 24 162/85 (110) 100 05/01/19 06:50 97 19 100 T-Piece 6.0 28 88 18 96 05/01/19 06:41 96 T-Piece 6.0 28 05/01/19 06:00 92 20 103/60 (74) 96 05/01/19 05:00 88 19 130/66 (87) 100 05/01/19 04:00 5.0 28 05/01/19 04:00 87 05/01/19 04:00 T-piece 5.0 T-piece 5.0 05/01/19 04:00 98.6 95 22 139/70 (93) 100 05/01/19 03:38 94 23 100 T-Piece 6.0 28 05/01/19 03:28 91 21 100 T-Piece 6.0 28 05/01/19 03:00 88 24 127/59 (81) 99 05/01/19 02:00 93 23 95/57 (70) 95 05/01/19 01:00 98 22 110/57 (74) 100 05/01/19 00:50 99 T-Piece 6.0 28 05/01/19 00:00 98.5 105 29 141/65 (90) 91 05/01/19 00:00 88 05/01/19 00:00 T-piece 5.0 T-piece 5.0 05/01/19 00:00 5.0 28 04/30/19 23:25 92 23 100 T-Piece 6.0 28 04/30/19 23:13 95 19 98 T-Piece 6.0 28 04/30/19 23:00 95 21 93/53 (66) 98 04/30/19 22:00 93 21 135/74 (94) 100 04/30/19 21:00 100 21 141/67 (91) 98 04/30/19 20:00 T-piece 5.0 T-piece 5.0 04/30/19 20:00 86 04/30/19 20:00 5.0 28 04/30/19 20:00 98.0 109 19 170/78 (108) 96 04/30/19 19:19 91 21 100 T-Piece 6.0 28 04/30/19 19:09 100 T-Piece 6.0 28 04/30/19 19:09 87 23 100 T-Piece 6.0 28 04/30/19 19:00 96 21 143/69 (93) 100 04/30/19 18:00 85 26 144/73 (96) 95 04/30/19 17:00 84 21 171/87 (115) 100 04/30/19 16:00 5.0 28 04/30/19 16:00 98.0 96 23 151/79 (103) 100 04/30/19 16:00 T-piece 5.0 T-piece 5.0 04/30/19 16:00 91 04/30/19 15:00 88 21 206/84 (124) 84 04/30/19 14:50 86 16 100 T-Piece 6.0 28 86 12 99 04/30/19 14:00 87 21 153/76 (101) 99 04/30/19 13:00 92 22 160/78 (105) 99 04/30/19 12:45 100 T-Piece 6.0 28 04/30/19 12:00 91 04/30/19 12:00 5.0 28 04/30/19 12:00 97.7 92 19 164/59 (94) 99 04/30/19 12:00 T-piece 5.0 T-piece 5.0 04/30/19 11:00 85 18 149/50 (83) 100 04/30/19 10:43 74 20 100 T-Piece 6.0 28 68 16 100 Height (Feet): 5 Height (Inches): 3.00 Weight (Pounds): 126 Respiratory/Chest: rhonchi - bilaterally Cardiovascular: normal rate, regular rhythm, no gallop/murmur Abdomen: soft, non tender, other - GT Extremities: no edema, other - right arm PICC Current Medications Medications (Trade) Dose Ordered Sig/Maicol Route PRN Reason Start Time Stop Time Status Last Admin Dose Admin Albuterol/ Ipratropium (Albuterol/ Ipratropium) 3 ml Q4HRT HHN 04/30/19 15:00 05/05/19 14:59 05/01/19 10:29 Atropine Sulfate (Atropine Opth Adriana) 1 drop THREE TIMES A DAY SL 04/08/19 09:00 05/07/19 20:59 05/01/19 08:51 Chlorhexidine Gluconate (Cesilia-Hex 2%) 1 applic DAILY@1999 TOPIC 04/12/19 20:00 05/12/19 19:59 04/30/19 20:51 Hydralazine HCl (Apresoline) 25 mg Q6H PRN ORAL SBP above 150 04/06/19 02:45 05/06/19 02:44 04/06/19 11:15 Levetiracetam (Keppra) 750 mg Q12HR GT 04/28/19 09:00 05/28/19 08:59 05/01/19 08:51 Sorbitol (Sorbitol) 30 ml BIDPRN PRN ORAL Constipation 04/13/19 11:15 05/13/19 11:14 Sorbitol (sorbitoL) 30 ml DAILY GT 04/14/19 09:00 05/14/19 08:59 05/01/19 08:51 Geovany Yang MD May 01, 2019 10:32
[2019-05-01] MEDS ORDERED: Cefepime HCl 2 GM in D5W 55 ML IVPB SCH (10:45)
--- NOTE | 2019-05-01 11:49 | Diagnostic Imaging Report ---
Indication: Dyspnea Comparison: 03/14/2019 A single view chest radiograph was obtained. Findings: Tracheostomy again noted. Heart size is stable. Lung volumes are low. Interstitial densities are prominent as well as pulmonary vascular markings bilaterally. PICC line is stable. IMPRESSION: Suggestion of mild CHF. Correlate clinically
--- NOTE | 2019-05-01 11:55 | NUR ---
RADIOLOGY DEPT., CHEST X-RAY COMPLETED.-P.DYE
--- NOTE | 2019-05-01 12:00 | NUR ---
NURSE NOTES: Pt repositioned, oral care performed, no acute distress noted. GT and JT flushed with 100 cc H20 each. Pt is afebrile. No changes in mental status. Will continue to monitor.
--- NOTE | 2019-05-01 12:06 | NUR ---
NURSE NOTES: Spoke to Floresita from pharmacy, informed her that cefepime has not been brought up from pharmacy yet.
[2019-05-01] MEDS: Cefepime HCl 2 GM in D5W 55 ML IVPB SCH ×2 (12:23→23:50)
--- NOTE | 2019-05-01 12:47 | Nephrology Progress Note ---
Assessment/Plan Problem List: (1) Acute renal failure (ARF) Assessment: Cr stable (2) Chronic respiratory failure (3) Anemia (4) Sepsis Assessment Acute renal failure Respiratory failure - Trach Low Mag- Low k , Low Na Anemia UTI / Sepsis Proteinuria / HypoAlbuminemia high Trigs Sz decubs bed bound DNR Plan Transfused previously now has JT bolus Albumin as needed K and Mag and Phos supplement as needed Hydrate as needed Urine studies avoid Nephrotoxics mag K Phos supplements as needed monitor renal parameters Subjective ROS Limited/Unobtainable: Yes Objective Objective Last 24 Hour Vital Signs Date Time Temp Pulse Resp B/P (MAP) Pulse Ox O2 Delivery O2 Flow Rate FiO2 05/01/19 10:39 96 20 100 T-Piece 6.0 28 97 25 97 05/01/19 10:00 96 23 123/58 (79) 95 05/01/19 09:00 95 19 149/43 (78) 98 05/01/19 08:00 5.0 28 05/01/19 08:00 87 18 123/67 (85) 100 05/01/19 08:00 T-piece 5.0 T-piece 5.0 T-piece 5.0 T-piece 5.0 05/01/19 08:00 88 05/01/19 07:01 95 22 141/81 (101) 100 05/01/19 07:00 97 24 162/85 (110) 100 05/01/19 06:50 97 19 100 T-Piece 6.0 28 88 18 96 05/01/19 06:41 96 T-Piece 6.0 28 05/01/19 06:00 92 20 103/60 (74) 96 05/01/19 05:00 88 19 130/66 (87) 100 05/01/19 04:00 5.0 28 05/01/19 04:00 87 05/01/19 04:00 T-piece 5.0 T-piece 5.0 05/01/19 04:00 98.6 95 22 139/70 (93) 100 05/01/19 03:38 94 23 100 T-Piece 6.0 28 05/01/19 03:28 91 21 100 T-Piece 6.0 28 05/01/19 03:00 88 24 127/59 (81) 99 05/01/19 02:00 93 23 95/57 (70) 95 05/01/19 01:00 98 22 110/57 (74) 100 05/01/19 00:50 99 T-Piece 6.0 28 05/01/19 00:00 98.5 105 29 141/65 (90) 91 05/01/19 00:00 88 05/01/19 00:00 T-piece 5.0 T-piece 5.0 05/01/19 00:00 5.0 28 04/30/19 23:25 92 23 100 T-Piece 6.0 28 04/30/19 23:13 95 19 98 T-Piece 6.0 28 04/30/19 23:00 95 21 93/53 (66) 98 04/30/19 22:00 93 21 135/74 (94) 100 04/30/19 21:00 100 21 141/67 (91) 98 04/30/19 20:00 T-piece 5.0 T-piece 5.0 04/30/19 20:00 86 04/30/19 20:00 5.0 28 04/30/19 20:00 98.0 109 19 170/78 (108) 96 04/30/19 19:19 91 21 100 T-Piece 6.0 28 04/30/19 19:09 100 T-Piece 6.0 28 04/30/19 19:09 87 23 100 T-Piece 6.0 28 04/30/19 19:00 96 21 143/69 (93) 100 04/30/19 18:00 85 26 144/73 (96) 95 04/30/19 17:00 84 21 171/87 (115) 100 04/30/19 16:00 5.0 28 04/30/19 16:00 98.0 96 23 151/79 (103) 100 04/30/19 16:00 T-piece 5.0 T-piece 5.0 04/30/19 16:00 91 04/30/19 15:00 88 21 206/84 (124) 84 04/30/19 14:50 86 16 100 T-Piece 6.0 28 86 12 99 04/30/19 14:00 87 21 153/76 (101) 99 04/30/19 13:00 92 22 160/78 (105) 99 04/30/19 12:45 100 T-Piece 6.0 28 Intake and Output 04/30/19 05/01/19 19:00 07:00 Intake Total 1320 ml 1260 ml Output Total 980 ml 600 ml Balance 340 ml 660 ml Free Water 300 ml IV Total 1000 ml Tube Feeding 120 ml 660 ml Other 200 ml 300 ml Output Urine Total 340 ml 400 ml Gastric Drainage Total 640 ml 200 ml Height (Feet): 5 Height (Inches): 3.00 Weight (Pounds): 126 General Appearance: no apparent distress EENT: other - trach Respiratory/Chest: decreased breath sounds Abdomen: distended Objective no change Eric Cortez MD May 01, 2019 12:47
--- NOTE | 2019-05-01 14:30 | NUR ---
NURSE NOTES: Dr Madera at bedside, made aware of pt's redness noted to right lower extremity. Redness improved since this morning. No new orders at this time. Will continue to monitor. Addendum: 05/01/19 at 1744 by Sandy Chi RN Late entry: Dr Madera assessed healing skin tear wound to left hand. states wound has improved. Skin appears pink without opening around thumb and index finger, no necrotic tissue noted.
--- NOTE | 2019-05-01 14:45 | NUR ---
CASE MANAGEMENT: REVIEW 05/01/2019 SI: RESPIRATORY FAILURE/COOL AEROSOL 98.3 AX 103 21 118/50 T-PIECE @5L 98% IS: ATROPINE OPTH CLEMENT TID NEB TX Q4HRT KEPPRA GT Q12HR HEPARIN SUBQ Q12H MAXIPIME IV Q12H SORBITOL GT QD APRESOLINE Q6H PRN CXR~ MILD CHF ~~~~SDU STATUS 2 WEST
--- NOTE | 2019-05-01 15:02 | Surgery Progress Note ---
Surgery Progress Note Subjective Additional Comments no acute events comfortable appearing no n/v/f/c dressings removed and changed. wounds improved Objective Last 24 Hour Vital Signs Date Time Temp Pulse Resp B/P (MAP) Pulse Ox O2 Delivery O2 Flow Rate FiO2 05/01/19 14:00 99 23 128/55 (79) 100 05/01/19 13:21 96 T-Piece 6.0 28 05/01/19 13:00 106 23 152/55 (87) 98 05/01/19 12:00 98 05/01/19 12:00 T-piece 5.0 T-piece 5.0 T-piece 5.0 T-piece 5.0 05/01/19 12:00 98.3 103 21 118/50 (72) 95 05/01/19 12:00 5.0 28 05/01/19 11:00 109 24 159/71 (100) 99 05/01/19 10:39 96 20 100 T-Piece 6.0 28 97 25 97 05/01/19 10:00 96 23 123/58 (79) 95 05/01/19 09:00 95 19 149/43 (78) 98 05/01/19 08:00 5.0 28 05/01/19 08:00 87 18 123/67 (85) 100 05/01/19 08:00 T-piece 5.0 T-piece 5.0 T-piece 5.0 T-piece 5.0 05/01/19 08:00 88 05/01/19 07:01 95 22 141/81 (101) 100 05/01/19 07:00 97 24 162/85 (110) 100 05/01/19 06:50 97 19 100 T-Piece 6.0 28 88 18 96 05/01/19 06:41 96 T-Piece 6.0 28 05/01/19 06:00 92 20 103/60 (74) 96 05/01/19 05:00 88 19 130/66 (87) 100 05/01/19 04:00 5.0 28 05/01/19 04:00 87 05/01/19 04:00 T-piece 5.0 T-piece 5.0 05/01/19 04:00 98.6 95 22 139/70 (93) 100 05/01/19 03:38 94 23 100 T-Piece 6.0 28 05/01/19 03:28 91 21 100 T-Piece 6.0 28 05/01/19 03:00 88 24 127/59 (81) 99 05/01/19 02:00 93 23 95/57 (70) 95 05/01/19 01:00 98 22 110/57 (74) 100 05/01/19 00:50 99 T-Piece 6.0 28 05/01/19 00:00 98.5 105 29 141/65 (90) 91 05/01/19 00:00 88 05/01/19 00:00 T-piece 5.0 T-piece 5.0 05/01/19 00:00 5.0 28 04/30/19 23:25 92 23 100 T-Piece 6.0 28 04/30/19 23:13 95 19 98 T-Piece 6.0 28 04/30/19 23:00 95 21 93/53 (66) 98 04/30/19 22:00 93 21 135/74 (94) 100 04/30/19 21:00 100 21 141/67 (91) 98 04/30/19 20:00 T-piece 5.0 T-piece 5.0 04/30/19 20:00 86 04/30/19 20:00 5.0 28 04/30/19 20:00 98.0 109 19 170/78 (108) 96 04/30/19 19:19 91 21 100 T-Piece 6.0 28 04/30/19 19:09 100 T-Piece 6.0 28 04/30/19 19:09 87 23 100 T-Piece 6.0 28 04/30/19 19:00 96 21 143/69 (93) 100 04/30/19 18:00 85 26 144/73 (96) 95 04/30/19 17:00 84 21 171/87 (115) 100 04/30/19 16:00 5.0 28 04/30/19 16:00 98.0 96 23 151/79 (103) 100 04/30/19 16:00 T-piece 5.0 T-piece 5.0 04/30/19 16:00 91 I&O Intake and Output 04/30/19 05/01/19 19:00 07:00 Intake Total 1320 ml 1260 ml Output Total 980 ml 600 ml Balance 340 ml 660 ml Free Water 300 ml IV Total 1000 ml Tube Feeding 120 ml 660 ml Other 200 ml 300 ml Output Urine Total 340 ml 400 ml Gastric Drainage Total 640 ml 200 ml Dressing: other Wound: other Drains: other Cardiovascular: RSR Respiratory: decreased breath sounds Abdomen: soft, present bowel sounds Extremities: other Plan Problems: (1) Sacral decubitus ulcer Assessment & Plan: This is a 83-year-old female with multiple medical committees that is currently admitted for medical care and management and identified to have multiple wounds requiring care. On admission patient noted to have a resolved sacral decubitus ulcer. Has had prior care and is well-healed at this time. Will ensure it does not open up again. Patient has a right ischial decubitus ulcer that is resolved. Scar intact and well formed. Will monitor to ensure it does not open up again. Patient has a left ischial decubitus ulcer that can be identified to be stage IV with palpable bone that has been resolving as noted by the periwound tissue and scar but open area approximately 1 cm x 1.5 cm few millimeters deep to bone identified. Unsure if this is been to be completely healed prior and has since opened or if has been healing at this level. No foul odor no drainage was unsure local wound care until healed Bilateral heels soft without signs of injury Resolving pressure injury L ischium(L)1.8cm x (W)1cm.Scattered biofilm at base of wound. Edges flat and adherent with surrounding hyperpigmentation. No odor or exudate noted. Sacrum is pale pink with surrounding hyperpigmentation. Hyperpigmentation R ischium with small sheared area centrally.No areas of erythema or exudate noted. Both heels are soft but blanchable. Skin Assessed under collar of trach and no evidence of skin breakdown noted. All wound Tx. are effective and continued as ordered. Pt ahs an APM/Belén mattress overlay and is being repositioned per protocols and per tolerance.No new skin concerns noted. Full thickness pressure injury L Ischium with small amt biofilm (L)1.8cm x (W) 1cm. Surrounding pink hyperpigmentation. No odor or exudate noted. [place] hyperpigmentation from previous wound noted to sacrum. Pt also noted to have Cat 2 Skin Tear dorsal L hand, L 5th metatarsal extending into palm of hand. 80% skin flap in situ.Both heels are dry firm and blanchable. No other skin concerns noted. R ischial wound has resolved. [place] epithelial with surrounding hyperpigmentation. from historical wound. Full thickness pressure injury L ischium. [place] granulation at base of wound. Borders are macerated with Surrounding hyperpigmentation.Small amt non-odorous serous exudate noted.(L)0.7cm x (W)0.8cm. Skin hyperpigmentation from historical wound noted to Sacrum. Small sheared area noted to sacrococcygeal area.(L)0.4cm x (W)0.3cm.Small amt sanguineous exudate noted. Reabsorbed blister with semi-detached dry necrotic cap noted to web space of L thumb and L index fingers extending into palm of L hand. No odor or exudate noted. Skin assessed under tracheal collar and no erythema or evidence of Skin Breakdown noted. NO new skin concerns noted . Good hand hygiene provided to both hands. R hand contracted and fisted. Fingernails trimmed. Wound care provided along with Primary nurse. Wound Tx continued as ordered. New order obtained from to apply Betadine to wound L hand Daily. Tx done as ordered. L hand wrapped with kerlix weaving kerlix between fingers to separate fingers. Moisture Barrier applied to sacrum ,R ischium. Each site covered with Optifoam drsg. Both lower ext washed and moisturized. Cav[place] Skin Barrier applied to both heels.Each heel covered with Optifoam drsgs. Pt positioned with pillows and both heels off-loaded with pillow. Pt wounds are resolving. Loose necrotic cap within web space of L index finger and L thumb easily removed with gentle friction. Base of wound is hypergranular with 10% necrosis. Borders are macerated. Application of Silver Nitrate to hypergranular base done. [place] Skin Barrier applied to borders . Good hand hygiene provided. Wound covered with Abd pad. L hand wrapped with Kerlix weaving Kerlix between digitsof L hand. Pressure injury L ischium resolving. Base iof wound is pale pink and dry with surrounding hyperpigmentation and scar from previous wound. Hyperpigmentation with historical scars noted to Sacrum and R ischium. Both heels are soft and blanchable. Skin Assessed under trach collar and no evidence of skin breakdown noted. Tx.Plan: Apply Betadine to wound L hand. Cover with Gauze and wrap with Kerlix Daily and prn. Cleanse L ischial wound with Saline. Apply Therahoney. Apply Moisture Barrier periwound. Cover with Optifoam drsgevery 3 days and prn. Apply Moisture Barrier Paste to R ischium and Sacrum. Cover each area with Optifoam drsg. Change every 3 days and prn. Apply Cavilon Skin Barrier to both heels. Cover each heel with Optifoam drsg. Change every 7 days and prn. Cleanse Blister Dorsal and palm of L hand with saline. Versatel One Silicone Contact Layer(Applied). Apply Silvasorb Gel. Wrap with Kerlix Gauze.Change every 7 days and prn. Apply Moisture Barrier to sacrum. Cover with Optifoam drsg. Change every 3 days and prn. APM/BELÉN Mattress overlay. Reposition at least every 2hours or as tolerated. Off-load heels with pillow. Nutritional optimization We will monitor follow with recommendations cont with above upon d/c wounds healing overall improving left hand wound almost resolved. 80% healed (2) Sepsis Assessment & Plan: IV abx as per ID trend labs improving wounds unlikely etiology likely respiratory imaging noted and okay abnormal lft's stable PICC on Abx in ICU for desaturation CXR with consolidation cont with frequent suctioning d/c planning g j via GI daughter wants close attention to wounds and management to ensure healing Evidence of left lower lobe pneumonia, also previously demonstrated Gastrostomy in good position Mild diastasis of the rectus abdominis musculature again demonstrated Retrosacral decubitus changes, better depicted on prior exam which included the pelvis Small hiatal hernia with evidence of trace gastroesophageal reflux Discussed with GI. Recommend GJ family still pending decision transfuse prbc prn monitor h/h monitor bm LFTs improving trending down (3) Feeding by G-tube Assessment & Plan: DAILY ESTIMATED NEEDS: Needs based on Pulmonary, wounds, bedbound/ 61kg adj 25-30 kcals/kg 2324-6719 total kcals 1.25-2 g protein/kg 76-122 g total protein 25-30 mL/kg 6421-6525 total fluid mLs NUTRITION DIAGNOSIS: * Increased kcal/prot needs R/T wound healing as evidenced by BL buttocks and sacral wound photos, refer to eval. * Swallowing difficulty R/T respiratory status as evidenced by pt on T-collar, s/p G-J conversion CURRENT TF:Glucerna 1.5 @ 50ml/hr x 24 hrs ENTERAL NUTRITION RECOMMENDATIONS: Glucerna 1.5 @ 50ml/hr x 24 hrs to provide 1200ml, 1800 kcal, 99g pro, 911ml free H2O - Maintain at current rate as tolerated to meet 100% est needs - HOB over 30 degrees - INCREASE water flush of 170ml q 6 hrs ADDITIONAL RECOMMENDATIONS: 1) RE-calibrate bedscale wt: fluctuating daily wts (108#-136# last 6 days) 2) Wound healing: Add Cristian 1pkt BID w/ continued good TF tolerance. 3) Increase water flushes, monitor for signs of water deficits 4) Monitor BGs closely, need for NISS -> now w/ improved BGs 5) Monitor for continued good TF tolerance 6) Monitor K : elev K on 03/25, s/p Kdur BID, now dc'ed. (4) Chronic vegetative state Assessment & Plan: incontinence of urine and stool. can soil dressings. nurses doing great job with monitoring and changing prn (5) Leukocytosis Walter Madera May 01, 2019 15:02
--- NOTE | 2019-05-01 15:50 | General Progress Note ---
Assessment/Plan Status: stable, progressing Assessment/Plan: Assessment - N/V - resolved with G --> J conversion - constipation - partly due to low residue formula used, good response to sorbitol - Elevated Alk phos / LFT - Negative CT with IV contrast - abd U/S negative, x 2 - check hepatitis serologies - negative - possibly MURRAY / Fatty liver - will monitor - Anemia with OB (-) stools - Resp failure, s/p Trach - dysphagia, s/p PEG --> GJ tube - OBS, vegetative obtunded unresponsive state, bedbound with contracted extremities, - h/o minor GJ tube site irritation - poor Prognosis Recommendations - daily sorbitol, and PRN sorbitol - Cristian BID - antibiotic ointment to GJT site PRN - aspiration precautions - elevate HOB - Vital AF 1.2 - check q 6 hour FS - transfuse to keep Hg > 7 - J tube feeds - G tube drain - reduce Keppra to 500 Subjective Allergies: Coded Allergies: CODEINE (Verified Allergy, Unknown, HIVES, 09/15/09) Subjective above noted Keppra levels 48 - slightly high will decrease dose Objective Last 24 Hour Vital Signs Date Time Temp Pulse Resp B/P (MAP) Pulse Ox O2 Delivery O2 Flow Rate FiO2 05/01/19 15:00 94 22 132/48 (76) 100 05/01/19 14:54 91 20 100 T-Piece 6.0 28 88 24 96 05/01/19 14:00 99 23 128/55 (79) 100 05/01/19 13:21 96 T-Piece 6.0 28 05/01/19 13:00 106 23 152/55 (87) 98 05/01/19 12:00 98 05/01/19 12:00 T-piece 5.0 T-piece 5.0 T-piece 5.0 T-piece 5.0 05/01/19 12:00 98.3 103 21 118/50 (72) 95 05/01/19 12:00 5.0 28 05/01/19 11:00 109 24 159/71 (100) 99 05/01/19 10:39 96 20 100 T-Piece 6.0 28 97 25 97 05/01/19 10:00 96 23 123/58 (79) 95 05/01/19 09:00 95 19 149/43 (78) 98 05/01/19 08:00 5.0 28 1/31/20 08:00 87 18 123/67 (85) 100 05/01/19 08:00 T-piece 5.0 T-piece 5.0 T-piece 5.0 T-piece 5.0 05/01/19 08:00 88 05/01/19 07:01 95 22 141/81 (101) 100 05/01/19 07:00 97 24 162/85 (110) 100 05/01/19 06:50 97 19 100 T-Piece 6.0 28 88 18 96 05/01/19 06:41 96 T-Piece 6.0 28 05/01/19 06:00 92 20 103/60 (74) 96 05/01/19 05:00 88 19 130/66 (87) 100 05/01/19 04:00 5.0 28 05/01/19 04:00 87 05/01/19 04:00 T-piece 5.0 T-piece 5.0 05/01/19 04:00 98.6 95 22 139/70 (93) 100 05/01/19 03:38 94 23 100 T-Piece 6.0 28 05/01/19 03:28 91 21 100 T-Piece 6.0 28 05/01/19 03:00 88 24 127/59 (81) 99 05/01/19 02:00 93 23 95/57 (70) 95 05/01/19 01:00 98 22 110/57 (74) 100 05/01/19 00:50 99 T-Piece 6.0 28 05/01/19 00:00 98.5 105 29 141/65 (90) 91 05/01/19 00:00 88 05/01/19 00:00 T-piece 5.0 T-piece 5.0 05/01/19 00:00 5.0 28 04/30/19 23:25 92 23 100 T-Piece 6.0 28 04/30/19 23:13 95 19 98 T-Piece 6.0 28 04/30/19 23:00 95 21 93/53 (66) 98 04/30/19 22:00 93 21 135/74 (94) 100 04/30/19 21:00 100 21 141/67 (91) 98 04/30/19 20:00 T-piece 5.0 T-piece 5.0 04/30/19 20:00 86 04/30/19 20:00 5.0 28 04/30/19 20:00 98.0 109 19 170/78 (108) 96 04/30/19 19:19 91 21 100 T-Piece 6.0 28 04/30/19 19:09 100 T-Piece 6.0 28 04/30/19 19:09 87 23 100 T-Piece 6.0 28 04/30/19 19:00 96 21 143/69 (93) 100 04/30/19 18:00 85 26 144/73 (96) 95 04/30/19 17:00 84 21 171/87 (115) 100 04/30/19 16:00 5.0 28 04/30/19 16:00 98.0 96 23 151/79 (103) 100 04/30/19 16:00 T-piece 5.0 T-piece 5.0 04/30/19 16:00 91 Intake and Output 04/30/19 05/01/19 19:00 07:00 Intake Total 1320 ml 1260 ml Output Total 980 ml 600 ml Balance 340 ml 660 ml Free Water 300 ml IV Total 1000 ml Tube Feeding 120 ml 660 ml Other 200 ml 300 ml Output Urine Total 340 ml 400 ml Gastric Drainage Total 640 ml 200 ml Height (Feet): 5 Height (Inches): 3.00 Weight (Pounds): 126 Objective Debilitated AA woman non-verbal, obtunded NCAT (+) trach coarse BS RR obese abd, (+) GJT no edema (+) contractured extremities Celio Vaughan MD May 01, 2019 15:50
--- NOTE | 2019-05-01 16:00 | NUR ---
NURSE NOTES: Pt repositioned, suctioned, and oral care performed. Pt in no acute distress and afebrile. GT and JT flushed with 100 cc H20 each. Will continue to monitor.
--- NOTE | 2019-05-01 16:30 | NUR ---
NURSE NOTES: Dr Vaughan aware pt's gastric drainage now has brown appearance. No new orders.
--- NOTE | 2019-05-01 19:26 | NUR ---
HAND-OFF: Report given to JEANNINE Salomon. Pt in no acute distress.
--- NOTE | 2019-05-01 19:30 | NUR ---
NURSE NOTES: Patient in bed sleeping comfortably arousable to tactile stimuli. On t-piece Shiley 6xlt @ 28% O2:100%. G/J-tube each flushed with 100ml water. J-tube running Vital AF @ 60ml/hr and tolerating well. G-Tube draining to gravity. Purewick in place and suctioning. Safety measures in place; bed low, locked and alarm is on. No s/s of acute distress noted. no moaning no facial grimaces. Contact isolation maintained and observed.Will continue plan of care.
[2019-05-01] MEDS: Dyna-Hex 2% Top Sol 2oz TOPIC SCH (20:03)
--- NOTE | 2019-05-01 21:30 | NUR ---
NURSE NOTES: CHG bath given tolerated well. Repositioned. P200 mattress for wound management. no s/s of hypo/hyperglycemia. will continue plan of care.
--- NOTE | 2019-05-01 23:30 | NUR ---
NURSE NOTES: Patient in bed no s/s of acute distress noted. HOB. no s/s of hypo/hyperglycemia. Oral care and suctioned patient. Code status DNR comfort measure provided. No fever. no diarrhea. with P200 mattress for wound management. Frequent visual checks continued. will continue plan of care.
[2019-05-02] VITALS (24 sets, daily range): BP systolic 97–142; BP diastolic 42–60
--- NOTE | 2019-05-02 01:30 | NUR ---
NURSE NOTES: Patient in bed sleeping comfortably. no moaning no facial grimaces. HOB elevated. GJT intact no residual. SR on mba intern HR 98. Seizure and Contact isolation maintained and observed. will continue plan of care.
[2019-05-02] MEDS: Albuterol/Ipratropium 3ml neb HHN SCH ×6 (03:32→23:26)
--- NOTE | 2019-05-02 05:30 | NUR ---
NURSE NOTES: Bed bath given tolerated well. Patient in bed no s/s of acute distress noted. HOB. no s/s of hypo/hyperglycemia. Oral care and suctioned patient. No fever. no diarrhea. with P200 mattress for wound management. Frequent visual checks continued. will continue plan of care.
[2019-05-02 06:00] LABS: BASOPHILS % (AUTO) 0.5 % (0.0-2.0); EOSINOPHILS % (AUTO) 2.7 % (0.0-3.0); HEMATOCRIT 30.5 % (37.0-47.0); HEMOGLOBIN 10.2 G/DL (12.0-16.0); LYMPHOCYTES % (AUTO) 21.3 % (20.0-45.0); MEAN CORPUSCULAR VOLUME 89 FL (80-99); MONOCYTES % (AUTO) 4.4 % (1.0-10.0); NEUTROPHILS % (AUTO) 71.1 % (45.0-75.0); PLATELET COUNT 262 K/UL (150-450); RED BLOOD COUNT 3.42 M/UL (4.20-5.40); RED CELL DISTRIBUTION WIDTH 14.2 % (11.6-14.8); WHITE BLOOD COUNT 14.2 K/UL (4.8-10.8)
[2019-05-02 06:27] LABS: ALANINE AMINOTRANSFERASE 127 U/L (12-78); ALBUMIN 3.1 G/DL (3.4-5.0); ALBUMIN/GLOBULIN RATIO 0.5 (1.0-2.7); ALKALINE PHOSPHATASE 192 U/L (46-116); ANION GAP 8 mmol/L (5-15); ASPARTATE AMINO TRANSFERASE 49 U/L (15-37); BILIRUBIN,TOTAL 0.3 MG/DL (0.2-1.0); BLOOD UREA NITROGEN 68 mg/dL (7-18); CARBON DIOXIDE 30 MMOL/L (21-32); CHLORIDE 105 MMOL/L (98-107); CREATININE 1.4 MG/DL (0.55-1.30); SODIUM 143 MMOL/L (136-145)
--- NOTE | 2019-05-02 07:13 | NUR ---
HAND-OFF: Report given to Ivy PAEZ.
--- NOTE | 2019-05-02 07:20 | NUR ---
NURSE NOTES: Received report from JEANNINE Salomon. Pt is observed laying in bed, obtunded, non verbal, opening eyes spontaneously; however not tracking. On T-piece FiO2 28% O2 5L and SaO2 100% noted. J-tube feeding running vital AF @ 60mL/hr and tolerating well. No residual noted. G-tube draining to gravity. Purewick in place. Dressing is clean and dry on Lt. hand. Pt has Rt. upper arm PICC line intact and patent, dressing clean dry and intact. On P-200 mattress for wound management. Pt orally suctioned. No signs of pain and/or distress. Pt maintained on fall and seizure precautions. Bed locked and in lowest position with call light within reach. Will continue to care plan.
--- NOTE | 2019-05-02 08:04 | Pulmonology Progress Note ---
Assessment/Plan Assessment/Plan Impression: history of Sepsis history of Pneumonia Trach, G tube, Hypertension, Cardiac disease, Dementia, Previous CVA, Seizure disorder, Respiratory failure with hypoxia Anemia, Sacral ulcer renal cyst chronic pulmonary congestion Plan monitor for change continue with respiratory care monitor protein levels monitor imaging monitor labs and reflux aspiration ;monitor residuals elevate head and monitor secretions DNR. No CPR. ICU care reviewed meds noted and updated neb therapy off load as able nutrition/fees/ dietary skin care difficulty with placement monitor residual and reflux aspiration all changes noted and discussed chronic management reviewed medications/laboratory data/nursing notes/ICU care reviewed in detail note reviewed and edited care discussed with RN and RT Subjective ROS Limited/Unobtainable: Yes Allergies: Coded Allergies: CODEINE (Verified Allergy, Unknown, HIVES, 09/15/09) Subjective overnight events noted; still off vent ICU care issues discussed bed bound and obtunded poorly responsive Objective Last 24 Hour Vital Signs Date Time Temp Pulse Resp B/P (MAP) Pulse Ox O2 Delivery O2 Flow Rate FiO2 05/02/19 07:29 96 20 99 T-Piece 6.0 28 92 22 97 05/02/19 07:29 99 T-Piece 6.0 28 05/02/19 07:00 94 23 142/53 (82) 100 05/02/19 06:00 98.9 90 20 123/51 (75) 99 05/02/19 05:00 90 20 111/60 (77) 98 05/02/19 04:00 T-piece 5.0 T-piece 5.0 T-piece 5.0 T-piece 5.0 05/02/19 04:00 98.8 96 24 111/51 (71) 96 05/02/19 04:00 5.0 28 05/02/19 04:00 94 05/02/19 03:32 97 23 98 T-Piece 6.0 28 96 24 94 05/02/19 03:00 98 23 97/48 (64) 95 05/02/19 02:00 101 23 97/48 (64) 93 05/02/19 01:12 96 T-Piece 6.0 28 05/02/19 01:00 98 23 116/51 (72) 96 05/02/19 00:00 98.6 99 20 117/50 (72) 99 05/02/19 00:00 T-piece 5.0 T-piece 5.0 T-piece 5.0 T-piece 5.0 05/02/19 00:00 97 05/01/19 23:39 103 23 100 T-Piece 6.0 28 104 25 97 05/01/19 23:00 99 23 120/45 (70) 97 05/01/19 22:00 89 23 102/43 (62) 100 05/01/19 21:00 100 23 95/40 (58) 97 05/01/19 20:00 98.8 99 22 110/45 (66) 97 05/01/19 20:00 5.0 28 05/01/19 20:00 93 05/01/19 20:00 T-piece 5.0 T-piece 5.0 T-piece 5.0 T-piece 5.0 05/01/19 19:22 99 T-Piece 6.0 28 05/01/19 19:21 100 21 100 T-Piece 6.0 28 99 22 99 05/01/19 19:00 95 21 135/37 (69) 100 05/01/19 18:00 103 23 115/98 (104) 100 05/01/19 17:00 97 21 128/52 (77) 100 05/01/19 16:00 5.0 28 05/01/19 16:00 99 05/01/19 16:00 98.6 98 25 135/58 (83) 99 05/01/19 16:00 T-piece 5.0 T-piece 5.0 T-piece 5.0 T-piece 5.0 05/01/19 15:00 94 22 132/48 (76) 100 05/01/19 14:54 91 20 100 T-Piece 6.0 28 88 24 96 05/01/19 14:00 99 23 128/55 (79) 100 05/01/19 13:21 96 T-Piece 6.0 28 05/01/19 13:00 106 23 152/55 (87) 98 05/01/19 12:00 98 05/01/19 12:00 T-piece 5.0 T-piece 5.0 T-piece 5.0 T-piece 5.0 05/01/19 12:00 98.3 103 21 118/50 (72) 95 05/01/19 12:00 5.0 28 05/01/19 11:00 109 24 159/71 (100) 99 05/01/19 10:39 96 20 100 T-Piece 6.0 28 97 25 97 05/01/19 10:00 96 23 123/58 (79) 95 05/01/19 09:00 95 19 149/43 (78) 98 Intake and Output 05/01/19 05/02/19 19:00 07:00 Intake Total 1375 ml 1435 ml Output Total 100 ml 900 ml Balance 1275 ml 535 ml Free Water 300 ml 300 ml IV Total 55 ml 55 ml Tube Feeding 720 ml 720 ml Other 300 ml 360 ml Output Urine Total 100 ml 300 ml Gastric Drainage Total 600 ml # Voids 3 # Bowel Movements 2 Objective WDWN NAD contracted off vent reduced breath sounds bilaterally without rhonchi or wheeze [id number] without MRG NABS nontender no HSM no CC trace edema same nonfocal nonverbal trach and gt reviewed and edited Microbiology Date/Time Source Procedure Growth Status 05/01/19 12:00 Sputum Gram Stain Pending Resulted 05/01/19 12:00 Sputum Culture - Preliminary Gram Negative Bacillus 1 Resulted Laboratory Tests 05/02/19 05:00: White Blood Count 14.2H, Red Blood Count 3.42L, Hemoglobin 10.2L, Hematocrit 30.5L, Mean Corpuscular Volume 89, Mean Corpuscular Hemoglobin 29.7, Mean Corpuscular Hemoglobin Concent 33.4, Red Cell Distribution Width 14.2, Platelet Count 262, Mean Platelet Volume 5.4L, Neutrophils (%) (Auto) 71.1, Lymphocytes ( %) (Auto) 21.3, Monocytes (%) (Auto) 4.4, Eosinophils (%) (Auto) 2.7, Basophils (%) (Auto) 0.5, Sodium Level 143, Potassium Level 4.0, Chloride Level 105, Carbon Dioxide Level 30, Anion Gap 8, Blood Urea Nitrogen 68H, Creatinine 1.4H, Estimat Glomerular Filtration Rate , Glucose Level 145H, Calcium Level 9.0, Phosphorus Level 4.0, Magnesium Level 2.7H, Total Bilirubin 0.3, Aspartate Amino Transf (AST/SGOT) 49H, Alanine Aminotransferase (ALT/SGPT) 127H, Alkaline Phosphatase 192H, C-Reactive Protein, Quantitative 5.1H, Total Protein 8.9H, Albumin 3.1L, Globulin 5.8, Albumin/Globulin Ratio 0.5L Current Medications Medications (Trade) Dose Ordered Sig/Maicol Route PRN Reason Start Time Stop Time Status Last Admin Dose Admin Albuterol/ Ipratropium (Albuterol/ Ipratropium) 3 ml Q4HRT HHN 04/30/19 15:00 05/05/19 14:59 05/02/19 07:28 Atropine Sulfate (Atropine Opth Adriana) 1 drop THREE TIMES A DAY SL 04/08/19 09:00 05/07/19 20:59 05/01/19 18:10 Cefepime HCl 2 gm/ Dextrose 55 ml @ 110 mls/hr Q12H IVPB 05/01/19 11:00 05/08/19 10:59 05/01/19 23:50 Chlorhexidine Gluconate (Cesilia-Hex 2%) 1 applic DAILY@2000 TOPIC 04/12/19 20:00 05/12/19 19:59 05/01/19 20:03 Heparin Sodium (Porcine) (Heparin 5000 units/ml) 5,000 units EVERY 12 HOURS SUBQ 05/01/19 21:00 05/31/19 20:59 05/01/19 20:04 Hydralazine HCl (Apresoline) 25 mg Q6H PRN ORAL SBP above 150 04/06/19 02:45 05/06/19 02:44 04/06/19 11:15 Levetiracetam (Keppra) 500 mg Q12HR GT 05/01/19 21:00 05/28/19 08:59 05/01/19 20:03 Sorbitol (Sorbitol) 30 ml BIDPRN PRN ORAL Constipation 04/13/19 11:15 05/13/19 11:14 Sorbitol (sorbitoL) 30 ml DAILY GT 04/14/19 09:00 05/14/19 08:59 05/01/19 08:51 Amaury Chan MD May 02, 2019 08:04
[2019-05-02] MEDS: Sorbitol Solution UD 30ml GT SCH (08:31)
[2019-05-02] MEDS: levETIRAcetam 500mg/5ml Liquid GT SCH ×2 (08:31→20:06)
[2019-05-02] MEDS: Heparin 5000 units/ml inj SUBQ SCH ×2 (08:34→20:07)
--- NOTE | 2019-05-02 09:00 | NUR ---
NURSE NOTES: Pt suctioned and oral care completed. GT and JT flushed with 100mL. No distress noted at this time.
--- NOTE | 2019-05-02 10:57 | General Progress Note ---
Assessment/Plan Problem List: (1) Seizure ICD Codes: R56.9 - Unspecified convulsions SNOMED: 26349714 (2) Anemia ICD Codes: D64.9 - Anemia, unspecified SNOMED: 736015411 Qualifiers: Qualified Codes: D64.9 - Anemia, unspecified (3) Sepsis ICD Codes: A41.9 - Sepsis, unspecified organism SNOMED: 76039063, 067048511 Qualifiers: Qualified Codes: A41.9 - Sepsis, unspecified organism (4) Respiratory failure with hypoxia ICD Codes: J96.91 - Respiratory failure, unspecified with hypoxia SNOMED: 76235538259730685 Qualifiers: Qualified Codes: J96.21 - Acute and chronic respiratory failure with hypoxia (5) HCAP (healthcare-associated pneumonia) ICD Codes: J18.9 - Pneumonia, unspecified organism SNOMED: 748458898, 530888351 (6) Sacral decubitus ulcer ICD Codes: L89.159 - Pressure ulcer of sacral region, unspecified stage SNOMED: 954942894 (7) HTN (hypertension) ICD Codes: I10 - Essential (primary) hypertension SNOMED: 05152254 (8) Chronic vegetative state ICD Codes: R40.3 - Persistent vegetative state SNOMED: 57908607 (9) Chronic respiratory failure ICD Codes: J96.10 - Chronic respiratory failure, unspecified whether with hypoxia or hypercapnia SNOMED: 74218736 (10) Limited mobility ICD Codes: Z74.09 - Other reduced mobility SNOMED: 8645944 Status: stable, progressing Assessment/Plan: vent as needed resp rx suctioning j tube feeds g port to gravity skin care sz rx monitor wbc and LFTss bowel regime dc planning Subjective ROS Limited/Unobtainable: No Constitutional: Reports: malaise, weakness HEENT: Reports: no symptoms Cardiovascular: Reports: no symptoms Respiratory: Reports: cough, shortness of breath, sputum Gastrointestinal/Abdominal: Reports: difficulty swallowing Genitourinary: Reports: no symptoms Neurologic/Psychiatric: Reports: seizure Endocrine: Reports: no symptoms Hematologic/Lymphatic: Reports: no symptoms Allergies: Coded Allergies: CODEINE (Verified Allergy, Unknown, HIVES, 09/15/09) All Systems: reviewed and negative except above Subjective no events. no reports of bleeding. tolerating feeds, no vomiting. minimal secretions. no szs Objective Last 24 Hour Vital Signs Date Time Temp Pulse Resp B/P (MAP) Pulse Ox O2 Delivery O2 Flow Rate FiO2 05/02/19 10:00 99 22 118/58 (78) 99 05/02/19 09:00 94 23 134/56 (82) 99 05/02/19 08:00 99 05/02/19 08:00 5.0 28 05/02/19 08:00 98.5 95 21 138/49 (78) 100 05/02/19 08:00 T-piece 5.0 T-piece 5.0 T-piece 5.0 T-piece 5.0 05/02/19 07:47 94 05/02/19 07:29 96 20 99 T-Piece 6.0 28 92 22 97 05/02/19 07:29 99 T-Piece 6.0 28 05/02/19 07:00 94 23 142/53 (82) 100 05/02/19 06:00 98.9 90 20 123/51 (75) 99 05/02/19 05:00 90 20 111/60 (77) 98 05/02/19 04:00 T-piece 5.0 T-piece 5.0 T-piece 5.0 T-piece 5.0 05/02/19 04:00 98.8 96 24 111/51 (71) 96 05/02/19 04:00 5.0 28 05/02/19 04:00 94 05/02/19 03:32 97 23 98 T-Piece 6.0 28 96 24 94 05/02/19 03:00 98 23 97/48 (64) 95 05/02/19 02:00 101 23 97/48 (64) 93 05/02/19 01:12 96 T-Piece 6.0 28 05/02/19 01:00 98 23 116/51 (72) 96 05/02/19 00:00 98.6 99 20 117/50 (72) 99 05/02/19 00:00 T-piece 5.0 T-piece 5.0 T-piece 5.0 T-piece 5.0 05/02/19 00:00 97 05/01/19 23:39 103 23 100 T-Piece 6.0 28 104 25 97 05/01/19 23:00 99 23 120/45 (70) 97 05/01/19 22:00 89 23 102/43 (62) 100 05/01/19 21:00 100 23 95/40 (58) 97 05/01/19 20:00 98.8 99 22 110/45 (66) 97 05/01/19 20:00 5.0 28 05/01/19 20:00 93 05/01/19 20:00 T-piece 5.0 T-piece 5.0 T-piece 5.0 T-piece 5.0 05/01/19 19:22 99 T-Piece 6.0 28 05/01/19 19:21 100 21 100 T-Piece 6.0 28 99 22 99 05/01/19 19:00 95 21 135/37 (69) 100 05/01/19 18:00 103 23 115/98 (104) 100 05/01/19 17:00 97 21 128/52 (77) 100 05/01/19 16:00 5.0 28 05/01/19 16:00 99 05/01/19 16:00 98.6 98 25 135/58 (83) 99 05/01/19 16:00 T-piece 5.0 T-piece 5.0 T-piece 5.0 T-piece 5.0 05/01/19 15:00 94 22 132/48 (76) 100 05/01/19 14:54 91 20 100 T-Piece 6.0 28 88 24 96 05/01/19 14:00 99 23 128/55 (79) 100 05/01/19 13:21 96 T-Piece 6.0 28 05/01/19 13:00 106 23 152/55 (87) 98 05/01/19 12:00 98 05/01/19 12:00 T-piece 5.0 T-piece 5.0 T-piece 5.0 T-piece 5.0 05/01/19 12:00 98.3 103 21 118/50 (72) 95 05/01/19 12:00 5.0 28 05/01/19 11:00 109 24 159/71 (100) 99 Intake and Output 05/01/19 05/02/19 19:00 07:00 Intake Total 1375 ml 1435 ml Output Total 100 ml 900 ml Balance 1275 ml 535 ml Free Water 300 ml 300 ml IV Total 55 ml 55 ml Tube Feeding 720 ml 720 ml Other 300 ml 360 ml Output Urine Total 100 ml 300 ml Gastric Drainage Total 600 ml # Voids 3 # Bowel Movements 2 Laboratory Tests 05/02/19 05:00: White Blood Count 14.2H, Red Blood Count 3.42L, Hemoglobin 10.2L, Hematocrit 30.5L, Mean Corpuscular Volume 89, Mean Corpuscular Hemoglobin 29.7, Mean Corpuscular Hemoglobin Concent 33.4, Red Cell Distribution Width 14.2, Platelet Count 262, Mean Platelet Volume 5.4L, Neutrophils (%) (Auto) 71.1, Lymphocytes ( %) (Auto) 21.3, Monocytes (%) (Auto) 4.4, Eosinophils (%) (Auto) 2.7, Basophils (%) (Auto) 0.5, Sodium Level 143, Potassium Level 4.0, Chloride Level 105, Carbon Dioxide Level 30, Anion Gap 8, Blood Urea Nitrogen 68H, Creatinine 1.4H, Estimat Glomerular Filtration Rate , Glucose Level 145H, Calcium Level 9.0, Phosphorus Level 4.0, Magnesium Level 2.7H, Total Bilirubin 0.3, Aspartate Amino Transf (AST/SGOT) 49H, Alanine Aminotransferase (ALT/SGPT) 127H, Alkaline Phosphatase 192H, C-Reactive Protein, Quantitative 5.1H, Total Protein 8.9H, Albumin 3.1L, Globulin 5.8, Albumin/Globulin Ratio 0.5L Height (Feet): 5 Height (Inches): 3.00 Weight (Pounds): 127 Objective General Appearance: WD/WN, confused. on trach collar Neck: supple Cardiovascular: normal rate, regular rhythm Respiratory/Chest: chest wall non-tender, rhonchi - bilaterally(minimal) Abdomen: normal bowel sounds, non tender, soft, no organomegaly Edema: no edema noted Arm (L), no edema noted Arm (R), no edema noted Leg (L), no edema noted Leg (R), no edema noted Pedal (L), no edema noted Pedal (R), no edema noted Generalized Neurologic: disoriented, unresponsive, aphasia Irvin Beltrán MD May 02, 2019 10:57
--- NOTE | 2019-05-02 12:00 | NUR ---
NURSE NOTES: Pt suctioned and oral care completed. GT and JT flushed with 100mL. No distress noted at this time.
--- NOTE | 2019-05-02 12:22 | Nephrology Progress Note ---
Assessment/Plan Problem List: (1) Acute renal failure (ARF) Assessment: Cr stable (2) Chronic respiratory failure (3) Anemia (4) Sepsis Assessment Acute renal failure Respiratory failure - Trach Low Mag- Low k , Low Na Anemia UTI / Sepsis Proteinuria / HypoAlbuminemia high Trigs Sz decubs bed bound DNR Plan Transfused previously now has JT bolus Albumin as needed K and Mag and Phos supplement as needed Hydrate as needed Urine studies avoid Nephrotoxics mag K Phos supplements as needed monitor renal parameters Subjective ROS Limited/Unobtainable: Yes Objective Objective Last 24 Hour Vital Signs Date Time Temp Pulse Resp B/P (MAP) Pulse Ox O2 Delivery O2 Flow Rate FiO2 05/02/19 11:00 101 26 138/59 (85) 97 05/02/19 10:00 99 22 118/58 (78) 99 05/02/19 09:00 94 23 134/56 (82) 99 05/02/19 08:00 99 05/02/19 08:00 5.0 28 05/02/19 08:00 98.5 95 21 138/49 (78) 100 05/02/19 08:00 T-piece 5.0 T-piece 5.0 T-piece 5.0 T-piece 5.0 05/02/19 07:47 94 05/02/19 07:29 96 20 99 T-Piece 6.0 28 92 22 97 05/02/19 07:29 99 T-Piece 6.0 28 05/02/19 07:00 94 23 142/53 (82) 100 05/02/19 06:00 98.9 90 20 123/51 (75) 99 05/02/19 05:00 90 20 111/60 (77) 98 05/02/19 04:00 T-piece 5.0 T-piece 5.0 T-piece 5.0 T-piece 5.0 05/02/19 04:00 98.8 96 24 111/51 (71) 96 05/02/19 04:00 5.0 28 05/02/19 04:00 94 05/02/19 03:32 97 23 98 T-Piece 6.0 28 96 24 94 05/02/19 03:00 98 23 97/48 (64) 95 05/02/19 02:00 101 23 97/48 (64) 93 05/02/19 01:12 96 T-Piece 6.0 28 05/02/19 01:00 98 23 116/51 (72) 96 05/02/19 00:00 98.6 99 20 117/50 (72) 99 05/02/19 00:00 T-piece 5.0 T-piece 5.0 T-piece 5.0 T-piece 5.0 05/02/19 00:00 97 05/01/19 23:39 103 23 100 T-Piece 6.0 28 104 25 97 05/01/19 23:00 99 23 120/45 (70) 97 05/01/19 22:00 89 23 102/43 (62) 100 05/01/19 21:00 100 23 95/40 (58) 97 05/01/19 20:00 98.8 99 22 110/45 (66) 97 05/01/19 20:00 5.0 28 05/01/19 20:00 93 05/01/19 20:00 T-piece 5.0 T-piece 5.0 T-piece 5.0 T-piece 5.0 05/01/19 19:22 99 T-Piece 6.0 28 05/01/19 19:21 100 21 100 T-Piece 6.0 28 99 22 99 05/01/19 19:00 95 21 135/37 (69) 100 05/01/19 18:00 103 23 115/98 (104) 100 05/01/19 17:00 97 21 128/52 (77) 100 05/01/19 16:00 5.0 28 05/01/19 16:00 99 05/01/19 16:00 98.6 98 25 135/58 (83) 99 05/01/19 16:00 T-piece 5.0 T-piece 5.0 T-piece 5.0 T-piece 5.0 05/01/19 15:00 94 22 132/48 (76) 100 05/01/19 14:54 91 20 100 T-Piece 6.0 28 88 24 96 05/01/19 14:00 99 23 128/55 (79) 100 05/01/19 13:21 96 T-Piece 6.0 28 05/01/19 13:00 106 23 152/55 (87) 98 Intake and Output 05/01/19 05/02/19 19:00 07:00 Intake Total 1375 ml 1435 ml Output Total 100 ml 900 ml Balance 1275 ml 535 ml Free Water 300 ml 300 ml IV Total 55 ml 55 ml Tube Feeding 720 ml 720 ml Other 300 ml 360 ml Output Urine Total 100 ml 300 ml Gastric Drainage Total 600 ml # Voids 3 # Bowel Movements 2 Laboratory Tests 05/02/19 05:00: White Blood Count 14.2H, Red Blood Count 3.42L, Hemoglobin 10.2L, Hematocrit 30.5L, Mean Corpuscular Volume 89, Mean Corpuscular Hemoglobin 29.7, Mean Corpuscular Hemoglobin Concent 33.4, Red Cell Distribution Width 14.2, Platelet Count 262, Mean Platelet Volume 5.4L, Neutrophils (%) (Auto) 71.1, Lymphocytes ( %) (Auto) 21.3, Monocytes (%) (Auto) 4.4, Eosinophils (%) (Auto) 2.7, Basophils (%) (Auto) 0.5, Sodium Level 143, Potassium Level 4.0, Chloride Level 105, Carbon Dioxide Level 30, Anion Gap 8, Blood Urea Nitrogen 68H, Creatinine 1.4H, Estimat Glomerular Filtration Rate , Glucose Level 145H, Calcium Level 9.0, Phosphorus Level 4.0, Magnesium Level 2.7H, Total Bilirubin 0.3, Aspartate Amino Transf (AST/SGOT) 49H, Alanine Aminotransferase (ALT/SGPT) 127H, Alkaline Phosphatase 192H, C-Reactive Protein, Quantitative 5.1H, Total Protein 8.9H, Albumin 3.1L, Globulin 5.8, Albumin/Globulin Ratio 0.5L Height (Feet): 5 Height (Inches): 3.00 Weight (Pounds): 127 General Appearance: no apparent distress EENT: other - trach to O2 Cardiovascular: tachycardia Respiratory/Chest: decreased breath sounds Abdomen: soft Objective no change Eric Cortez MD May 02, 2019 12:22
[2019-05-02] MEDS: Cefepime HCl 2 GM in D5W 55 ML IVPB SCH ×2 (12:37→23:50)
[2019-05-02] MEDS ORDERED: Sterile Water Irrig 1000ml IRRIG ONE (14:20)
[2019-05-02] MEDS ORDERED: NS 275ml ONE (14:20)
[2019-05-02] MEDS ORDERED: 1/2 NS 1000ml IV ONE (14:20)
--- NOTE | 2019-05-02 16:00 | NUR ---
NURSE NOTES: Pt suctioned and oral care completed. Pt repositioned. GT and JT flushed with 100mL. T 98.5. No distress noted.
--- NOTE | 2019-05-02 17:04 | General Progress Note ---
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 - Anemia with OB (-) stools - Resp failure, s/p Trach - dysphagia, s/p PEG --> GJ tube - OBS, vegetative obtunded unresponsive state, bedbound with contracted extremities, - h/o minor GJ tube site irritation - poor Prognosis Recommendations - daily sorbitol, and PRN sorbitol - Cristian BID - antibiotic ointment to GJT site PRN - aspiration precautions - elevate HOB - Vital AF 1.2 - check q 6 hour FS - transfuse to keep Hg > 7 - J tube feeds - G tube drain - reduced Keppra to 500 - IVF - check ESR Subjective Allergies: Coded Allergies: CODEINE (Verified Allergy, Unknown, HIVES, 09/15/09) Subjective above noted mildly elevated Cr today Anti Actin Ab (+) Objective Last 24 Hour Vital Signs Date Time Temp Pulse Resp B/P (MAP) Pulse Ox O2 Delivery O2 Flow Rate FiO2 05/02/19 16:00 5.0 28 05/02/19 16:00 90 22 115/48 (70) 98 05/02/19 16:00 91 05/02/19 16:00 T-piece 5.0 T-piece 5.0 T-piece 5.0 T-piece 5.0 05/02/19 15:59 97 22 100 T-Piece 5.0 28 95 24 99 05/02/19 15:00 93 21 106/53 (70) 97 05/02/19 14:00 95 20 118/58 (78) 96 05/02/19 13:00 98 T-Piece 6.0 28 05/02/19 13:00 95 26 108/52 (70) 97 05/02/19 12:00 T-piece 5.0 T-piece 5.0 T-piece 5.0 T-piece 5.0 05/02/19 12:00 98.5 99 24 104/51 (68) 96 05/02/19 12:00 95 05/02/19 12:00 5.0 28 05/02/19 11:00 101 26 138/59 (85) 97 05/02/19 10:00 99 22 118/58 (78) 99 05/02/19 09:00 94 23 134/56 (82) 99 05/02/19 08:00 99 05/02/19 08:00 5.0 28 05/02/19 08:00 98.5 95 21 138/49 (78) 100 05/02/19 08:00 T-piece 5.0 T-piece 5.0 T-piece 5.0 T-piece 5.0 05/02/19 07:47 94 05/02/19 07:29 96 20 99 T-Piece 6.0 28 92 22 97 05/02/19 07:29 99 T-Piece 6.0 28 05/02/19 07:00 94 23 142/53 (82) 100 05/02/19 06:00 98.9 90 20 123/51 (75) 99 05/02/19 05:00 90 20 111/60 (77) 98 05/02/19 04:00 T-piece 5.0 T-piece 5.0 T-piece 5.0 T-piece 5.0 05/02/19 04:00 98.8 96 24 111/51 (71) 96 05/02/19 04:00 5.0 28 05/02/19 04:00 94 05/02/19 03:32 97 23 98 T-Piece 6.0 28 96 24 94 05/02/19 03:00 98 23 97/48 (64) 95 05/02/19 02:00 101 23 97/48 (64) 93 05/02/19 01:12 96 T-Piece 6.0 28 05/02/19 01:00 98 23 116/51 (72) 96 05/02/19 00:00 98.6 99 20 117/50 (72) 99 05/02/19 00:00 T-piece 5.0 T-piece 5.0 T-piece 5.0 T-piece 5.0 05/02/19 00:00 97 05/01/19 23:39 103 23 100 T-Piece 6.0 28 104 25 97 05/01/19 23:00 99 23 120/45 (70) 97 05/01/19 22:00 89 23 102/43 (62) 100 05/01/19 21:00 100 23 95/40 (58) 97 05/01/19 20:00 98.8 99 22 110/45 (66) 97 05/01/19 20:00 5.0 28 05/01/19 20:00 93 05/01/19 20:00 T-piece 5.0 T-piece 5.0 T-piece 5.0 T-piece 5.0 05/01/19 19:22 99 T-Piece 6.0 28 05/01/19 19:21 100 21 100 T-Piece 6.0 28 99 22 99 05/01/19 19:00 95 21 135/37 (69) 100 05/01/19 18:00 103 23 115/98 (104) 100 Intake and Output 05/01/19 05/02/19 19:00 07:00 Intake Total 1375 ml 1435 ml Output Total 100 ml 900 ml Balance 1275 ml 535 ml Free Water 300 ml 300 ml IV Total 55 ml 55 ml Tube Feeding 720 ml 720 ml Other 300 ml 360 ml Output Urine Total 100 ml 300 ml Gastric Drainage Total 600 ml # Voids 3 # Bowel Movements 2 Laboratory Tests 05/02/19 05:00: White Blood Count 14.2H, Red Blood Count 3.42L, Hemoglobin 10.2L, Hematocrit 30.5L, Mean Corpuscular Volume 89, Mean Corpuscular Hemoglobin 29.7, Mean Corpuscular Hemoglobin Concent 33.4, Red Cell Distribution Width 14.2, Platelet Count 262, Mean Platelet Volume 5.4L, Neutrophils (%) (Auto) 71.1, Lymphocytes ( %) (Auto) 21.3, Monocytes (%) (Auto) 4.4, Eosinophils (%) (Auto) 2.7, Basophils (%) (Auto) 0.5, Sodium Level 143, Potassium Level 4.0, Chloride Level 105, Carbon Dioxide Level 30, Anion Gap 8, Blood Urea Nitrogen 68H, Creatinine 1.4H, Estimat Glomerular Filtration Rate , Glucose Level 145H, Calcium Level 9.0, Phosphorus Level 4.0, Magnesium Level 2.7H, Total Bilirubin 0.3, Aspartate Amino Transf (AST/SGOT) 49H, Alanine Aminotransferase (ALT/SGPT) 127H, Alkaline Phosphatase 192H, C-Reactive Protein, Quantitative 5.1H, Total Protein 8.9H, Albumin 3.1L, Globulin 5.8, Albumin/Globulin Ratio 0.5L Height (Feet): 5 Height (Inches): 3.00 Weight (Pounds): 127 Objective Debilitated AA woman non-verbal, obtunded NCAT (+) trach coarse BS RR obese abd, (+) GJT no edema (+) contractured extremities Celio Vaughan MD May 02, 2019 17:04
--- NOTE | 2019-05-02 19:15 | NUR ---
HAND-OFF: Report given to JEANNINE Kraus.
--- NOTE | 2019-05-02 19:16 | NUR ---
HAND-OFF: Report given to JEANNINE Salomon d/t assignment being changed.
--- NOTE | 2019-05-02 19:20 | NUR ---
NURSE NOTES: Received report from Ivy PAEZ. Patient in bed sleeping comfortably arousable to tactile stimuli. On t-piece Shiley 6xlt @ 28% O2:100%. G/J-tube each flushed with 100ml water. J-tube running Vital AF @ 60ml/hr and tolerating well. G-Tube draining to gravity. Left upper arm PICC line intact infusing 1/2 NS at 50cc/hr. Purewick in place connected to low suction. Safety measures in place; bed low, locked and alarm is on. No s/s of acute distress noted. no moaning no facial grimaces. Seizure and Contact isolation maintained and observed. Oral care and suction provided. Code status DNR comfort measure provided. On P200 mattress for wound management. Will continue plan of care.
[2019-05-02] MEDS: Dyna-Hex 2% Top Sol 2oz TOPIC SCH (20:06)
--- NOTE | 2019-05-02 21:20 | NUR ---
NURSE NOTES: CHG bath given tolerated well. Repositioned. P200 mattress for wound management. no s/s of hypo/hyperglycemia. oral care provided. Suctioned patient. will continue plan of care.
[2019-05-03] VITALS (24 sets, daily range): BP systolic 102–155; BP diastolic 40–112
--- NOTE | 2019-05-03 01:20 | NUR ---
NURSE NOTES: Patient in bed sleeping comfortably. no moaning no facial grimaces. HOB elevated. GJT intact no residual. Seizure and Contact isolation maintained and observed. will continue plan of care.
--- NOTE | 2019-05-03 03:20 | NUR ---
NURSE NOTES: Bed bath given tolerated well. PICC line dressing changed. no moaning no facial grimaces. HOB elevated. GJT intact no residual. SR on hospital monitor HR 95. Seizure and Contact isolation maintained and observed. will continue plan of care.
[2019-05-03] MEDS: Albuterol/Ipratropium 3ml neb HHN SCH ×6 (03:38→23:42)
[2019-05-03 05:54] LABS: BASOPHILS % (AUTO) 0.7 % (0.0-2.0); EOSINOPHILS % (AUTO) 4.6 % (0.0-3.0); HEMATOCRIT 28.4 % (37.0-47.0); HEMOGLOBIN 9.5 G/DL (12.0-16.0); LYMPHOCYTES % (AUTO) 26.3 % (20.0-45.0); MEAN CORPUSCULAR VOLUME 89 FL (80-99); MONOCYTES % (AUTO) 4.9 % (1.0-10.0); NEUTROPHILS % (AUTO) 63.5 % (45.0-75.0); PLATELET COUNT 224 K/UL (150-450); RED BLOOD COUNT 3.18 M/UL (4.20-5.40); RED CELL DISTRIBUTION WIDTH 14.3 % (11.6-14.8); WHITE BLOOD COUNT 8.3 K/UL (4.8-10.8)
[2019-05-03 06:05] LABS: ALANINE AMINOTRANSFERASE 138 U/L (12-78); ALBUMIN 2.8 G/DL (3.4-5.0); ALBUMIN/GLOBULIN RATIO 0.5 (1.0-2.7); ALKALINE PHOSPHATASE 176 U/L (46-116); ANION GAP 7 mmol/L (5-15); ASPARTATE AMINO TRANSFERASE 50 U/L (15-37); BILIRUBIN,TOTAL 0.2 MG/DL (0.2-1.0); BLOOD UREA NITROGEN 61 mg/dL (7-18); CALCIUM 8.9 MG/DL (8.5-10.1); CARBON DIOXIDE 31 MMOL/L (21-32); CHLORIDE 107 MMOL/L (98-107); CREATININE 1.1 MG/DL (0.55-1.30); POTASSIUM 4.2 MMOL/L (3.5-5.1); SODIUM 145 MMOL/L (136-145)
--- NOTE | 2019-05-03 07:12 | NUR ---
HAND-OFF: Report given to Ifeanyi PAEZ.
--- NOTE | 2019-05-03 07:13 | NUR ---
NURSE NOTES: Late entry: PT and report received from JEANNINE Salomon; PT received with open eyes no tracking of staff, on T-piece shiley 6 xlt @ 28% saturating at 99%; monitor technician shows SR, HR 88; no S/S of respiratory distress noted. PT has JT infusing vital af @ 60cc/hr @ goal with Q4H flush 150cc/hr; GT flush 100cc/hr Q4H meds only. PT has purewick to wall suction intact patent, on p200 mattress; JOSY-PICC is infusing 1/2NS @ 50cc/hr; side rails are padded for seizure precaution, bed is at lowest position bed alarm on, no gurgling noted from t-piece, suctioning given but no secretions noted, will continue to monitor PT and follow through with plan of care.
[2019-05-03] MEDS: levETIRAcetam 500mg/5ml Liquid GT SCH ×2 (08:41→20:50)
[2019-05-03] MEDS: Sorbitol Solution UD 30ml GT SCH (08:41)
[2019-05-03] MEDS: Heparin 5000 units/ml inj SUBQ SCH ×2 (08:42→20:51)
--- NOTE | 2019-05-03 09:23 | NUR ---
NURSE NOTES: Fall risk, DNR, and medication allergy wrist bands all placed on PT right wrist. SANTINO Pederson made aware.
--- NOTE | 2019-05-03 09:35 | NUR ---
NURSE NOTES: Sign over PT bed updated for G-port and J-port water flushes.
[2019-05-03] MEDS ORDERED: Tubing IV Secondary IV ONE (10:02)
[2019-05-03] MEDS ORDERED: NS 275ml ONE (10:02)
[2019-05-03] MEDS ORDERED: 1/2 NS 1000ml IV ONE (10:02)
--- NOTE | 2019-05-03 10:40 | Pulmonology Progress Note ---
Assessment/Plan Assessment/Plan Impression: history of Sepsis history of Pneumonia Trach, G tube, Hypertension, Cardiac disease, Dementia, Previous CVA, Seizure disorder, Respiratory failure with hypoxia Anemia, Sacral ulcer renal cyst chronic pulmonary congestion Plan monitor for change continue with respiratory care monitor protein levels monitor imaging monitor labs and reflux aspiration ;monitor residuals elevate head and monitor secretions DNR. No CPR. ICU care reviewed meds noted and updated neb therapy off load as able nutrition/fees/ dietary skin care difficulty with placement monitor residual and reflux aspiration all changes noted and discussed chronic management reviewed medications/laboratory data/nursing notes/ICU care reviewed in detail note reviewed and edited care discussed with RN and RT Subjective Allergies: Coded Allergies: CODEINE (Verified Allergy, Unknown, HIVES, 09/15/09) Subjective overnight events noted; still off vent ICU care issues discussed bed bound and obtunded poorly responsive Objective Last 24 Hour Vital Signs Date Time Temp Pulse Resp B/P (MAP) Pulse Ox O2 Delivery O2 Flow Rate FiO2 05/03/19 10:00 89 21 102/47 (65) 99 05/03/19 09:00 87 21 113/46 (68) 100 05/03/19 08:02 100 T-Piece 5.0 28 05/03/19 08:00 T-piece 5.0 T-piece 5.0 T-piece 5.0 T-piece 5.0 05/03/19 08:00 89 05/03/19 08:00 98.3 89 21 141/67 (91) 98 05/03/19 08:00 5.0 28 05/03/19 07:59 100 18 100 T-Piece 5.0 28 104 20 98 05/03/19 07:00 87 19 107/47 (67) 99 05/03/19 06:00 86 20 130/53 (78) 99 05/03/19 05:00 90 25 155/49 (84) 98 05/03/19 04:00 5.0 28 05/03/19 04:00 97.9 83 19 119/49 (72) 100 05/03/19 04:00 T-piece 5.0 T-piece 5.0 T-piece 5.0 T-piece 5.0 05/03/19 04:00 102 05/03/19 03:38 79 18 100 T-Piece 5.0 28 78 17 100 2/2/20 03:38 100 T-Piece 6.0 28 05/03/19 03:00 88 20 125/62 (83) 98 05/03/19 02:00 89 20 118/50 (72) 98 05/03/19 01:00 91 22 132/40 (70) 99 05/03/19 00:00 88 05/03/19 00:00 98.2 87 19 125/112 (116) 99 05/03/19 00:00 5.0 28 05/03/19 00:00 T-piece 5.0 T-piece 5.0 T-piece 5.0 T-piece 5.0 05/02/19 23:26 93 21 100 T-Piece 5.0 28 90 21 99 05/02/19 23:00 87 22 127/51 (76) 98 05/02/19 22:00 88 20 124/47 (72) 98 05/02/19 21:00 95 23 109/42 (64) 95 05/02/19 20:00 98.4 90 22 118/50 (72) 98 05/02/19 20:00 90 05/02/19 20:00 5.0 28 05/02/19 20:00 T-piece 5.0 T-piece 5.0 T-piece 5.0 T-piece 5.0 05/02/19 19:43 96 24 100 T-Piece 5.0 28 93 28 97 05/02/19 19:43 97 T-Piece 6.0 28 05/02/19 19:00 90 20 116/55 (75) 97 05/02/19 18:00 96 23 98/46 (63) 95 05/02/19 18:00 95 23 98/46 (63) 97 05/02/19 17:00 98.5 92 24 109/46 (67) 94 05/02/19 16:00 5.0 28 05/02/19 16:00 90 22 115/48 (70) 98 05/02/19 16:00 91 05/02/19 16:00 T-piece 5.0 T-piece 5.0 T-piece 5.0 T-piece 5.0 05/02/19 15:59 97 22 100 T-Piece 5.0 28 95 24 99 05/02/19 15:00 93 21 106/53 (70) 97 05/02/19 14:00 95 20 118/58 (78) 96 05/02/19 13:00 98 T-Piece 6.0 28 05/02/19 13:00 95 26 108/52 (70) 97 05/02/19 12:00 T-piece 5.0 T-piece 5.0 T-piece 5.0 T-piece 5.0 05/02/19 12:00 98.5 99 24 104/51 (68) 96 05/02/19 12:00 95 05/02/19 12:00 5.0 28 05/02/19 11:00 101 26 138/59 (85) 97 Intake and Output 05/02/19 05/03/19 19:00 07:00 Intake Total 1524.16 ml 2035 ml Output Total 500 ml 900 ml Balance 1024.16 ml 1135 ml Free Water 300 ml 300 ml IV Total 144.16 ml 655 ml Tube Feeding 720 ml 720 ml Other 360 ml 360 ml Output Urine Total 200 ml 500 ml Gastric Drainage Total 300 ml 400 ml # Bowel Movements 1 Objective WDWN NAD contracted off vent reduced breath sounds bilaterally without rhonchi or wheeze [id number] without MRG NABS nontender no HSM no CC trace edema same nonfocal nonverbal trach and gt reviewed and edited Microbiology Date/Time Source Procedure Growth Status 05/01/19 12:00 Sputum Gram Stain - Final Resulted 05/01/19 12:00 Sputum Culture - Preliminary Citrobacter Koseri Resulted Laboratory Tests 05/03/19 05:00: White Blood Count 8.3, Red Blood Count 3.18L, Hemoglobin 9.5L, Hematocrit 28.4L , Mean Corpuscular Volume 89, Mean Corpuscular Hemoglobin 29.8, Mean Corpuscular Hemoglobin Concent 33.4, Red Cell Distribution Width 14.3, Platelet Count 224, Mean Platelet Volume 5.5L, Neutrophils (%) (Auto) 63.5, Lymphocytes ( %) (Auto) 26.3, Monocytes (%) (Auto) 4.9, Eosinophils (%) (Auto) 4.6H, Basophils (%) (Auto) 0.7, Erythrocyte Sedimentation Rate 112H, Sodium Level 145 , Potassium Level 4.2, Chloride Level 107, Carbon Dioxide Level 31, Anion Gap 7 , Blood Urea Nitrogen 61H, Creatinine 1.1, Estimat Glomerular Filtration Rate , Glucose Level 108H, Calcium Level 8.9, Total Bilirubin 0.2, Aspartate Amino Transf (AST/SGOT) 50H, Alanine Aminotransferase (ALT/SGPT) 138H, Alkaline Phosphatase 176H, Total Protein 8.6H, Albumin 2.8L, Globulin 5.8, Albumin/ Globulin Ratio 0.5L Current Medications Medications (Trade) Dose Ordered Sig/Maicol Route PRN Reason Start Time Stop Time Status Last Admin Dose Admin Albuterol/ Ipratropium (Albuterol/ Ipratropium) 3 ml Q4HRT HHN 04/30/19 15:00 05/05/19 14:59 05/03/19 08:01 Atropine Sulfate (Atropine Opth Adriana) 1 drop THREE TIMES A DAY SL 04/08/19 09:00 05/07/19 20:59 05/03/19 08:41 Cefepime HCl 2 gm/ Dextrose 55 ml @ 110 mls/hr Q12H IVPB 05/01/19 11:00 05/08/19 10:59 05/02/19 23:50 Chlorhexidine Gluconate (Cesilia-Hex 2%) 1 applic DAILY@2000 TOPIC 04/12/19 20:00 05/12/19 19:59 05/02/19 20:06 Heparin Sodium (Porcine) (Heparin 5000 units/ml) 5,000 units EVERY 12 HOURS SUBQ 05/01/19 21:00 05/31/19 20:59 05/03/19 08:42 Hydralazine HCl (Apresoline) 25 mg Q6H PRN ORAL SBP above 150 04/06/19 02:45 05/06/19 02:44 04/06/19 11:15 Levetiracetam (Keppra) 500 mg Q12HR GT 05/01/19 21:00 05/28/19 08:59 05/03/19 08:41 Sodium Chloride 1,000 ml @ 50 mls/hr Q20H IV 05/02/19 17:15 06/01/19 17:14 05/02/19 17:13 Sorbitol (Sorbitol) 30 ml BIDPRN PRN ORAL Constipation 04/13/19 11:15 05/13/19 11:14 Sorbitol (sorbitoL) 30 ml DAILY GT 04/14/19 09:00 05/14/19 08:59 05/03/19 08:41 Amaury Chan MD May 03, 2019 10:40
--- NOTE | 2019-05-03 10:44 | Nephrology Progress Note ---
Assessment/Plan Problem List: (1) Acute renal failure (ARF) Assessment: Cr stable (2) Chronic respiratory failure (3) Anemia (4) Sepsis Assessment Acute renal failure Respiratory failure - Trach Low Mag- Low k , Low Na Anemia UTI / Sepsis Proteinuria / HypoAlbuminemia high Trigs Sz decubs bed bound DNR Plan Transfused previously now has JT bolus Albumin as needed K and Mag and Phos supplement as needed Hydrate as needed Urine studies avoid Nephrotoxics mag K Phos supplements as needed monitor renal parameters Subjective ROS Limited/Unobtainable: Yes Objective Objective Last 24 Hour Vital Signs Date Time Temp Pulse Resp B/P (MAP) Pulse Ox O2 Delivery O2 Flow Rate FiO2 05/03/19 10:00 89 21 102/47 (65) 99 05/03/19 09:00 87 21 113/46 (68) 100 05/03/19 08:02 100 T-Piece 5.0 28 05/03/19 08:00 T-piece 5.0 T-piece 5.0 T-piece 5.0 T-piece 5.0 05/03/19 08:00 89 05/03/19 08:00 98.3 89 21 141/67 (91) 98 05/03/19 08:00 5.0 28 05/03/19 07:59 100 18 100 T-Piece 5.0 28 104 20 98 05/03/19 07:00 87 19 107/47 (67) 99 05/03/19 06:00 86 20 130/53 (78) 99 05/03/19 05:00 90 25 155/49 (84) 98 05/03/19 04:00 5.0 28 05/03/19 04:00 97.9 83 19 119/49 (72) 100 05/03/19 04:00 T-piece 5.0 T-piece 5.0 T-piece 5.0 T-piece 5.0 05/03/19 04:00 102 05/03/19 03:38 79 18 100 T-Piece 5.0 28 78 17 100 05/03/19 03:38 100 T-Piece 6.0 28 05/03/19 03:00 88 20 125/62 (83) 98 05/03/19 02:00 89 20 118/50 (72) 98 05/03/19 01:00 91 22 132/40 (70) 99 05/03/19 00:00 88 2/2/20 00:00 98.2 87 19 125/112 (116) 99 05/03/19 00:00 5.0 28 05/03/19 00:00 T-piece 5.0 T-piece 5.0 T-piece 5.0 T-piece 5.0 05/02/19 23:26 93 21 100 T-Piece 5.0 28 90 21 99 05/02/19 23:00 87 22 127/51 (76) 98 05/02/19 22:00 88 20 124/47 (72) 98 05/02/19 21:00 95 23 109/42 (64) 95 05/02/19 20:00 98.4 90 22 118/50 (72) 98 05/02/19 20:00 90 05/02/19 20:00 5.0 28 05/02/19 20:00 T-piece 5.0 T-piece 5.0 T-piece 5.0 T-piece 5.0 05/02/19 19:43 96 24 100 T-Piece 5.0 28 93 28 97 05/02/19 19:43 97 T-Piece 6.0 28 05/02/19 19:00 90 20 116/55 (75) 97 05/02/19 18:00 96 23 98/46 (63) 95 05/02/19 18:00 95 23 98/46 (63) 97 05/02/19 17:00 98.5 92 24 109/46 (67) 94 05/02/19 16:00 5.0 28 05/02/19 16:00 90 22 115/48 (70) 98 05/02/19 16:00 91 05/02/19 16:00 T-piece 5.0 T-piece 5.0 T-piece 5.0 T-piece 5.0 05/02/19 15:59 97 22 100 T-Piece 5.0 28 95 24 99 05/02/19 15:00 93 21 106/53 (70) 97 05/02/19 14:00 95 20 118/58 (78) 96 05/02/19 13:00 98 T-Piece 6.0 28 05/02/19 13:00 95 26 108/52 (70) 97 05/02/19 12:00 T-piece 5.0 T-piece 5.0 T-piece 5.0 T-piece 5.0 05/02/19 12:00 98.5 99 24 104/51 (68) 96 05/02/19 12:00 95 05/02/19 12:00 5.0 28 05/02/19 11:00 101 26 138/59 (85) 97 Intake and Output 05/02/19 05/03/19 19:00 07:00 Intake Total 1524.16 ml 2035 ml Output Total 500 ml 900 ml Balance 1024.16 ml 1135 ml Free Water 300 ml 300 ml IV Total 144.16 ml 655 ml Tube Feeding 720 ml 720 ml Other 360 ml 360 ml Output Urine Total 200 ml 500 ml Gastric Drainage Total 300 ml 400 ml # Bowel Movements 1 Laboratory Tests 05/03/19 05:00: White Blood Count 8.3, Red Blood Count 3.18L, Hemoglobin 9.5L, Hematocrit 28.4L , Mean Corpuscular Volume 89, Mean Corpuscular Hemoglobin 29.8, Mean Corpuscular Hemoglobin Concent 33.4, Red Cell Distribution Width 14.3, Platelet Count 224, Mean Platelet Volume 5.5L, Neutrophils (%) (Auto) 63.5, Lymphocytes ( %) (Auto) 26.3, Monocytes (%) (Auto) 4.9, Eosinophils (%) (Auto) 4.6H, Basophils (%) (Auto) 0.7, Erythrocyte Sedimentation Rate 112H, Sodium Level 145 , Potassium Level 4.2, Chloride Level 107, Carbon Dioxide Level 31, Anion Gap 7 , Blood Urea Nitrogen 61H, Creatinine 1.1, Estimat Glomerular Filtration Rate , Glucose Level 108H, Calcium Level 8.9, Total Bilirubin 0.2, Aspartate Amino Transf (AST/SGOT) 50H, Alanine Aminotransferase (ALT/SGPT) 138H, Alkaline Phosphatase 176H, Total Protein 8.6H, Albumin 2.8L, Globulin 5.8, Albumin/ Globulin Ratio 0.5L Height (Feet): 5 Height (Inches): 3.00 Weight (Pounds): 126 General Appearance: no apparent distress EENT: other - trach to O2 Cardiovascular: normal rate Respiratory/Chest: decreased breath sounds Abdomen: distended Objective no change Eric Cotrez MD May 03, 2019 10:44
[2019-05-03] MEDS: Cefepime HCl 2 GM in D5W 55 ML IVPB SCH ×2 (11:38→23:58)
--- NOTE | 2019-05-03 12:26 | Infectious Diseases Prog Note ---
Assessment/Plan Assessment/Plan A 1. Providencia & Klebsiella pneumonia treated 2. respiratory failure 3. hypertension 4. CVA 5. dementia 6. sacral decubitus ulcer 7. rectal VRE colonization 8. Anemia 9. Proteus UTI 10. Acute renal failure 11. Leukocytosis resolved P 1.Observe off antibiotic 2. Frequent suctioning 3. Remove PICC line before discharge Subjective ROS Limited/Unobtainable: Yes Constitutional: Denies: fever Allergies: Coded Allergies: CODEINE (Verified Allergy, Unknown, HIVES, 09/15/09) Objective Vital Signs Last 24 Hour Vital Signs Date Time Temp Pulse Resp B/P (MAP) Pulse Ox O2 Delivery O2 Flow Rate FiO2 05/03/19 12:00 97.4 92 24 123/53 (76) 98 05/03/19 12:00 T-piece 5.0 T-piece 5.0 T-piece 5.0 T-piece 5.0 05/03/19 12:00 5.0 28 05/03/19 11:42 97 24 100 T-Piece 5.0 28 91 22 98 05/03/19 11:00 88 19 124/53 (76) 99 05/03/19 10:00 89 21 102/47 (65) 99 05/03/19 09:00 87 21 113/46 (68) 100 05/03/19 08:02 100 T-Piece 5.0 28 05/03/19 08:00 T-piece 5.0 T-piece 5.0 T-piece 5.0 T-piece 5.0 05/03/19 08:00 89 05/03/19 08:00 98.3 89 21 141/67 (91) 98 05/03/19 08:00 5.0 28 05/03/19 07:59 100 18 100 T-Piece 5.0 28 104 20 98 05/03/19 07:00 87 19 107/47 (67) 99 05/03/19 06:00 86 20 130/53 (78) 99 05/03/19 05:00 90 25 155/49 (84) 98 05/03/19 04:00 5.0 28 05/03/19 04:00 97.9 83 19 119/49 (72) 100 05/03/19 04:00 T-piece 5.0 T-piece 5.0 T-piece 5.0 T-piece 5.0 05/03/19 04:00 102 05/03/19 03:38 79 18 100 T-Piece 5.0 28 78 17 100 05/03/19 03:38 100 T-Piece 6.0 28 05/03/19 03:00 88 20 125/62 (83) 98 05/03/19 02:00 89 20 118/50 (72) 98 05/03/19 01:00 91 22 132/40 (70) 99 05/03/19 00:00 88 05/03/19 00:00 98.2 87 19 125/112 (116) 99 05/03/19 00:00 5.0 28 05/03/19 00:00 T-piece 5.0 T-piece 5.0 T-piece 5.0 T-piece 5.0 05/02/19 23:26 93 21 100 T-Piece 5.0 28 90 21 99 05/02/19 23:00 87 22 127/51 (76) 98 05/02/19 22:00 88 20 124/47 (72) 98 05/02/19 21:00 95 23 109/42 (64) 95 05/02/19 20:00 98.4 90 22 118/50 (72) 98 05/02/19 20:00 90 05/02/19 20:00 5.0 28 05/02/19 20:00 T-piece 5.0 T-piece 5.0 T-piece 5.0 T-piece 5.0 05/02/19 19:43 96 24 100 T-Piece 5.0 28 93 28 97 05/02/19 19:43 97 T-Piece 6.0 28 05/02/19 19:00 90 20 116/55 (75) 97 05/02/19 18:00 96 23 98/46 (63) 95 05/02/19 18:00 95 23 98/46 (63) 97 05/02/19 17:00 98.5 92 24 109/46 (67) 94 05/02/19 16:00 5.0 28 05/02/19 16:00 90 22 115/48 (70) 98 05/02/19 16:00 91 05/02/19 16:00 T-piece 5.0 T-piece 5.0 T-piece 5.0 T-piece 5.0 05/02/19 15:59 97 22 100 T-Piece 5.0 28 95 24 99 05/02/19 15:00 93 21 106/53 (70) 97 05/02/19 14:00 95 20 118/58 (78) 96 05/02/19 13:00 98 T-Piece 6.0 28 05/02/19 13:00 95 26 108/52 (70) 97 Height (Feet): 5 Height (Inches): 3.00 Weight (Pounds): 126 General Appearance: no acute distress HEENT: status post trach Respiratory/Chest: other - coarse sounds on T bar Cardiovascular: normal rate, other - R arm PICC line Abdomen: soft, non tender, other - GT feeding Extremities: no edema Neurologic/Psychiatric: unresponsiveness, aphasia Microbiology Date/Time Source Procedure Growth Status 05/01/19 12:00 Sputum Gram Stain - Final Resulted 05/01/19 12:00 Sputum Culture - Preliminary Citrobacter Koseri Resulted Laboratory Tests Test 05/03/19 05:00 White Blood Count 8.3 K/UL (4.8-10.8) Red Blood Count 3.18 M/UL (4.20-5.40) L Hemoglobin 9.5 G/DL (12.0-16.0) L Hematocrit 28.4 % (37.0-47.0) L Mean Corpuscular Volume 89 FL (80-99) Mean Corpuscular Hemoglobin 29.8 PG (27.0-31.0) Mean Corpuscular Hemoglobin Concent 33.4 G/DL (32.0-36.0) Red Cell Distribution Width 14.3 % (11.6-14.8) Platelet Count 224 K/UL (150-450) Mean Platelet Volume 5.5 FL (6.5-10.1) L Neutrophils (%) (Auto) 63.5 % (45.0-75.0) Lymphocytes (%) (Auto) 26.3 % (20.0-45.0) Monocytes (%) (Auto) 4.9 % (1.0-10.0) Eosinophils (%) (Auto) 4.6 % (0.0-3.0) H Basophils (%) (Auto) 0.7 % (0.0-2.0) Erythrocyte Sedimentation Rate 112 MM/HR (0-30) H Sodium Level 145 MMOL/L (136-145) Potassium Level 4.2 MMOL/L (3.5-5.1) Chloride Level 107 MMOL/L (98-107) Carbon Dioxide Level 31 MMOL/L (21-32) Anion Gap 7 mmol/L (5-15) Blood Urea Nitrogen 61 mg/dL (7-18) H Creatinine 1.1 MG/DL (0.55-1.30) Estimat Glomerular Filtration Rate mL/min (>60) Glucose Level 108 MG/DL (74-106) H Calcium Level 8.9 MG/DL (8.5-10.1) Total Bilirubin 0.2 MG/DL (0.2-1.0) Aspartate Amino Transf (AST/SGOT) 50 U/L (15-37) H Alanine Aminotransferase (ALT/SGPT) 138 U/L (12-78) H Alkaline Phosphatase 176 U/L (46-116) H Total Protein 8.6 G/DL (6.4-8.2) H Albumin 2.8 G/DL (3.4-5.0) L Globulin 5.8 g/dL Albumin/Globulin Ratio 0.5 (1.0-2.7) L Current Medications Medications (Trade) Dose Ordered Sig/Maicol Route PRN Reason Start Time Stop Time Status Last Admin Dose Admin Albuterol/ Ipratropium (Albuterol/ Ipratropium) 3 ml Q4HRT HHN 04/30/19 15:00 05/05/19 14:59 05/03/19 11:41 Atropine Sulfate (Atropine Opth Adriana) 1 drop THREE TIMES A DAY SL 04/08/19 09:00 05/07/19 20:59 05/03/19 08:41 Cefepime HCl 2 gm/ Dextrose 55 ml @ 110 mls/hr Q12H IVPB 05/01/19 11:00 05/08/19 10:59 05/03/19 11:38 Chlorhexidine Gluconate (Cesilia-Hex 2%) 1 applic DAILY@2000 TOPIC 04/12/19 20:00 05/12/19 19:59 05/02/19 20:06 Heparin Sodium (Porcine) (Heparin 5000 units/ml) 5,000 units EVERY 12 HOURS SUBQ 05/01/19 21:00 05/31/19 20:59 05/03/19 08:42 Hydralazine HCl (Apresoline) 25 mg Q6H PRN ORAL SBP above 150 04/06/19 02:45 05/06/19 02:44 04/06/19 11:15 Levetiracetam (Keppra) 500 mg Q12HR GT 05/01/19 21:00 05/28/19 08:59 05/03/19 08:41 Sodium Chloride 1,000 ml @ 50 mls/hr Q20H IV 05/02/19 17:15 06/01/19 17:14 05/02/19 17:13 Sorbitol (Sorbitol) 30 ml BIDPRN PRN ORAL Constipation 04/13/19 11:15 05/13/19 11:14 Sorbitol (sorbitoL) 30 ml DAILY GT 04/14/19 09:00 05/14/19 08:59 05/03/19 08:41 Chauncey Liriano MD May 03, 2019 12:26
--- NOTE | 2019-05-03 12:35 | General Progress Note ---
Assessment/Plan Problem List: (1) Seizure ICD Codes: R56.9 - Unspecified convulsions SNOMED: 22290664 (2) Anemia ICD Codes: D64.9 - Anemia, unspecified SNOMED: 907652775 Qualifiers: Qualified Codes: D64.9 - Anemia, unspecified (3) Sepsis ICD Codes: A41.9 - Sepsis, unspecified organism SNOMED: 41694259, 616590319 Qualifiers: Qualified Codes: A41.9 - Sepsis, unspecified organism (4) Respiratory failure with hypoxia ICD Codes: J96.91 - Respiratory failure, unspecified with hypoxia SNOMED: 93059111227073218 Qualifiers: Qualified Codes: J96.21 - Acute and chronic respiratory failure with hypoxia (5) HCAP (healthcare-associated pneumonia) ICD Codes: J18.9 - Pneumonia, unspecified organism SNOMED: 883253068, 749908843 (6) Sacral decubitus ulcer ICD Codes: L89.159 - Pressure ulcer of sacral region, unspecified stage SNOMED: 091158220 (7) HTN (hypertension) ICD Codes: I10 - Essential (primary) hypertension SNOMED: 45618858 (8) Chronic vegetative state ICD Codes: R40.3 - Persistent vegetative state SNOMED: 47726164 (9) Chronic respiratory failure ICD Codes: J96.10 - Chronic respiratory failure, unspecified whether with hypoxia or hypercapnia SNOMED: 66569541 (10) Limited mobility ICD Codes: Z74.09 - Other reduced mobility SNOMED: 0279607 Status: stable, progressing Assessment/Plan: vent as needed resp rx suctioning j tube feeds g port to gravity skin care sz rx monitor wbc and LFTss bowel regime dc planning Subjective ROS Limited/Unobtainable: No Constitutional: Reports: malaise, weakness HEENT: Reports: no symptoms Cardiovascular: Reports: no symptoms Respiratory: Reports: cough Gastrointestinal/Abdominal: Reports: difficulty swallowing Genitourinary: Reports: no symptoms Neurologic/Psychiatric: Reports: pre-existing deficit, seizure Endocrine: Reports: no symptoms Hematologic/Lymphatic: Reports: anemia Allergies: Coded Allergies: CODEINE (Verified Allergy, Unknown, HIVES, 09/15/09) All Systems: reviewed and negative except above Subjective no events. no reports of bleeding. tolerating feeds, no vomiting. minimal secretions. no szs Objective Last 24 Hour Vital Signs Date Time Temp Pulse Resp B/P (MAP) Pulse Ox O2 Delivery O2 Flow Rate FiO2 05/03/19 12:00 97.4 92 24 123/53 (76) 98 05/03/19 12:00 T-piece 5.0 T-piece 5.0 T-piece 5.0 T-piece 5.0 05/03/19 12:00 5.0 28 05/03/19 11:42 97 24 100 T-Piece 5.0 28 91 22 98 05/03/19 11:00 88 19 124/53 (76) 99 05/03/19 10:00 89 21 102/47 (65) 99 05/03/19 09:00 87 21 113/46 (68) 100 05/03/19 08:02 100 T-Piece 5.0 28 05/03/19 08:00 T-piece 5.0 T-piece 5.0 T-piece 5.0 T-piece 5.0 05/03/19 08:00 89 05/03/19 08:00 98.3 89 21 141/67 (91) 98 05/03/19 08:00 5.0 28 05/03/19 07:59 100 18 100 T-Piece 5.0 28 104 20 98 05/03/19 07:00 87 19 107/47 (67) 99 05/03/19 06:00 86 20 130/53 (78) 99 05/03/19 05:00 90 25 155/49 (84) 98 05/03/19 04:00 5.0 28 05/03/19 04:00 97.9 83 19 119/49 (72) 100 05/03/19 04:00 T-piece 5.0 T-piece 5.0 T-piece 5.0 T-piece 5.0 05/03/19 04:00 102 05/03/19 03:38 79 18 100 T-Piece 5.0 28 78 17 100 05/03/19 03:38 100 T-Piece 6.0 28 05/03/19 03:00 88 20 125/62 (83) 98 05/03/19 02:00 89 20 118/50 (72) 98 05/03/19 01:00 91 22 132/40 (70) 99 05/03/19 00:00 88 05/03/19 00:00 98.2 87 19 125/112 (116) 99 05/03/19 00:00 5.0 28 05/03/19 00:00 T-piece 5.0 T-piece 5.0 T-piece 5.0 T-piece 5.0 05/02/19 23:26 93 21 100 T-Piece 5.0 28 90 21 99 05/02/19 23:00 87 22 127/51 (76) 98 05/02/19 22:00 88 20 124/47 (72) 98 05/02/19 21:00 95 23 109/42 (64) 95 05/02/19 20:00 98.4 90 22 118/50 (72) 98 05/02/19 20:00 90 05/02/19 20:00 5.0 28 05/02/19 20:00 T-piece 5.0 T-piece 5.0 T-piece 5.0 T-piece 5.0 05/02/19 19:43 96 24 100 T-Piece 5.0 28 93 28 97 05/02/19 19:43 97 T-Piece 6.0 28 05/02/19 19:00 90 20 116/55 (75) 97 05/02/19 18:00 96 23 98/46 (63) 95 05/02/19 18:00 95 23 98/46 (63) 97 05/02/19 17:00 98.5 92 24 109/46 (67) 94 05/02/19 16:00 5.0 28 05/02/19 16:00 90 22 115/48 (70) 98 05/02/19 16:00 91 05/02/19 16:00 T-piece 5.0 T-piece 5.0 T-piece 5.0 T-piece 5.0 05/02/19 15:59 97 22 100 T-Piece 5.0 28 95 24 99 05/02/19 15:00 93 21 106/53 (70) 97 05/02/19 14:00 95 20 118/58 (78) 96 05/02/19 13:00 98 T-Piece 6.0 28 05/02/19 13:00 95 26 108/52 (70) 97 Intake and Output 05/02/19 05/03/19 19:00 07:00 Intake Total 1524.16 ml 2035 ml Output Total 500 ml 900 ml Balance 1024.16 ml 1135 ml Free Water 300 ml 300 ml IV Total 144.16 ml 655 ml Tube Feeding 720 ml 720 ml Other 360 ml 360 ml Output Urine Total 200 ml 500 ml Gastric Drainage Total 300 ml 400 ml # Bowel Movements 1 Laboratory Tests 05/03/19 05:00: White Blood Count 8.3, Red Blood Count 3.18L, Hemoglobin 9.5L, Hematocrit 28.4L , Mean Corpuscular Volume 89, Mean Corpuscular Hemoglobin 29.8, Mean Corpuscular Hemoglobin Concent 33.4, Red Cell Distribution Width 14.3, Platelet Count 224, Mean Platelet Volume 5.5L, Neutrophils (%) (Auto) 63.5, Lymphocytes ( %) (Auto) 26.3, Monocytes (%) (Auto) 4.9, Eosinophils (%) (Auto) 4.6H, Basophils (%) (Auto) 0.7, Erythrocyte Sedimentation Rate 112H, Sodium Level 145 , Potassium Level 4.2, Chloride Level 107, Carbon Dioxide Level 31, Anion Gap 7 , Blood Urea Nitrogen 61H, Creatinine 1.1, Estimat Glomerular Filtration Rate , Glucose Level 108H, Calcium Level 8.9, Total Bilirubin 0.2, Aspartate Amino Transf (AST/SGOT) 50H, Alanine Aminotransferase (ALT/SGPT) 138H, Alkaline Phosphatase 176H, Total Protein 8.6H, Albumin 2.8L, Globulin 5.8, Albumin/ Globulin Ratio 0.5L Height (Feet): 5 Height (Inches): 3.00 Weight (Pounds): 126 Objective General Appearance: WD/WN, confused. on trach collar Neck: supple Cardiovascular: normal rate, regular rhythm Respiratory/Chest: chest wall non-tender, rhonchi - bilaterally(minimal) Abdomen: normal bowel sounds, non tender, soft, no organomegaly Edema: no edema noted Arm (L), no edema noted Arm (R), no edema noted Leg (L), no edema noted Leg (R), no edema noted Pedal (L), no edema noted Pedal (R), no edema noted Generalized Neurologic: disoriented, unresponsive, aphasia Irvin Beltrán MD May 03, 2019 12:35
--- NOTE | 2019-05-03 13:09 | NUR ---
NURSE NOTES: PT VS stable, no S/S of respiratory distress noted, feeding tube and new bottle of vital af hung, will continue to monitor PT.
--- NOTE | 2019-05-03 15:54 | NUR ---
NURSE NOTES: VS stable, no gurgling noted, no S/S of respiratory distress noted. Will continue to monitor PT.
--- NOTE | 2019-05-03 15:58 | General Progress Note ---
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 auto immune hepatitis - Anemia with OB (-) stools - Resp failure, s/p Trach - dysphagia, s/p PEG --> GJ tube - OBS, vegetative obtunded unresponsive state, bedbound with contracted extremities, - h/o minor GJ tube site irritation - poor Prognosis Recommendations - daily sorbitol, and PRN sorbitol - Cristian BID - antibiotic ointment to GJT site PRN - aspiration precautions - elevate HOB - Vital AF 1.2 - check q 6 hour FS - transfuse to keep Hg > 7 - J tube feeds - G tube drain - IVF - check ESR - further evaluation for autoimmune hepatitis (AMA, serum IgG, anti DNA, ASMA) Subjective Allergies: Coded Allergies: CODEINE (Verified Allergy, Unknown, HIVES, 09/15/09) Subjective above noted BUN and Cr better tolerating TF no events ESR elevated to 112 Objective Last 24 Hour Vital Signs Date Time Temp Pulse Resp B/P (MAP) Pulse Ox O2 Delivery O2 Flow Rate FiO2 05/03/19 15:00 92 21 102/45 (64) 96 05/03/19 14:00 88 20 119/48 (71) 100 05/03/19 13:00 92 23 116/58 (77) 96 05/03/19 12:50 99 T-Piece 5.0 28 05/03/19 12:00 97.4 92 24 123/53 (76) 98 05/03/19 12:00 T-piece 5.0 T-piece 5.0 T-piece 5.0 T-piece 5.0 05/03/19 12:00 93 05/03/19 12:00 5.0 28 05/03/19 11:42 97 24 100 T-Piece 5.0 28 91 22 98 05/03/19 11:00 88 19 124/53 (76) 99 05/03/19 10:00 89 21 102/47 (65) 99 05/03/19 09:00 87 21 113/46 (68) 100 05/03/19 08:02 100 T-Piece 5.0 28 05/03/19 08:00 T-piece 5.0 T-piece 5.0 T-piece 5.0 T-piece 5.0 05/03/19 08:00 89 05/03/19 08:00 98.3 89 21 141/67 (91) 98 05/03/19 08:00 5.0 28 05/03/19 07:59 100 18 100 T-Piece 5.0 28 104 20 98 05/03/19 07:00 87 19 107/47 (67) 99 05/03/19 06:00 86 20 130/53 (78) 99 05/03/19 05:00 90 25 155/49 (84) 98 05/03/19 04:00 5.0 28 05/03/19 04:00 97.9 83 19 119/49 (72) 100 05/03/19 04:00 T-piece 5.0 T-piece 5.0 T-piece 5.0 T-piece 5.0 05/03/19 04:00 102 05/03/19 03:38 79 18 100 T-Piece 5.0 28 78 17 100 05/03/19 03:38 100 T-Piece 6.0 28 05/03/19 03:00 88 20 125/62 (83) 98 05/03/19 02:00 89 20 118/50 (72) 98 05/03/19 01:00 91 22 132/40 (70) 99 05/03/19 00:00 88 05/03/19 00:00 98.2 87 19 125/112 (116) 99 05/03/19 00:00 5.0 28 05/03/19 00:00 T-piece 5.0 T-piece 5.0 T-piece 5.0 T-piece 5.0 05/02/19 23:26 93 21 100 T-Piece 5.0 28 90 21 99 05/02/19 23:00 87 22 127/51 (76) 98 05/02/19 22:00 88 20 124/47 (72) 98 05/02/19 21:00 95 23 109/42 (64) 95 05/02/19 20:00 98.4 90 22 118/50 (72) 98 05/02/19 20:00 90 05/02/19 20:00 5.0 28 05/02/19 20:00 T-piece 5.0 T-piece 5.0 T-piece 5.0 T-piece 5.0 05/02/19 19:43 96 24 100 T-Piece 5.0 28 93 28 97 05/02/19 19:43 97 T-Piece 6.0 28 05/02/19 19:00 90 20 116/55 (75) 97 05/02/19 18:00 96 23 98/46 (63) 95 05/02/19 18:00 95 23 98/46 (63) 97 05/02/19 17:00 98.5 92 24 109/46 (67) 94 05/02/19 16:00 5.0 28 05/02/19 16:00 90 22 115/48 (70) 98 05/02/19 16:00 91 05/02/19 16:00 T-piece 5.0 T-piece 5.0 T-piece 5.0 T-piece 5.0 05/02/19 15:59 97 22 100 T-Piece 5.0 28 95 24 99 Intake and Output 05/02/19 05/03/19 19:00 07:00 Intake Total 1524.16 ml 2035 ml Output Total 500 ml 900 ml Balance 1024.16 ml 1135 ml Free Water 300 ml 300 ml IV Total 144.16 ml 655 ml Tube Feeding 720 ml 720 ml Other 360 ml 360 ml Output Urine Total 200 ml 500 ml Gastric Drainage Total 300 ml 400 ml # Bowel Movements 1 Laboratory Tests 05/03/19 05:00: White Blood Count 8.3, Red Blood Count 3.18L, Hemoglobin 9.5L, Hematocrit 28.4L , Mean Corpuscular Volume 89, Mean Corpuscular Hemoglobin 29.8, Mean Corpuscular Hemoglobin Concent 33.4, Red Cell Distribution Width 14.3, Platelet Count 224, Mean Platelet Volume 5.5L, Neutrophils (%) (Auto) 63.5, Lymphocytes ( %) (Auto) 26.3, Monocytes (%) (Auto) 4.9, Eosinophils (%) (Auto) 4.6H, Basophils (%) (Auto) 0.7, Erythrocyte Sedimentation Rate 112H, Sodium Level 145 , Potassium Level 4.2, Chloride Level 107, Carbon Dioxide Level 31, Anion Gap 7 , Blood Urea Nitrogen 61H, Creatinine 1.1, Estimat Glomerular Filtration Rate , Glucose Level 108H, Calcium Level 8.9, Total Bilirubin 0.2, Aspartate Amino Transf (AST/SGOT) 50H, Alanine Aminotransferase (ALT/SGPT) 138H, Alkaline Phosphatase 176H, Total Protein 8.6H, Albumin 2.8L, Globulin 5.8, Albumin/ Globulin Ratio 0.5L Height (Feet): 5 Height (Inches): 3.00 Weight (Pounds): 126 Objective Debilitated AA woman non-verbal, obtunded NCAT (+) trach coarse BS RR obese abd, (+) GJT no edema (+) contractured extremities Celio Vaughan MD May 03, 2019 15:58
--- NOTE | 2019-05-03 18:27 | NUR ---
NURSE NOTES: PT did not have BM; complete linens changed; cleaned, dried PT. Will continue to monitor PT.
--- NOTE | 2019-05-03 19:10 | NUR ---
HAND-OFF: Report and PT given to JEANNINE Kraus.
--- NOTE | 2019-05-03 19:11 | NUR ---
NURSE NOTES: Endorsement received from JEANNINE Suggs. Patient opens eyes spontaneously, does not track nor make eye contact. Sinus rhythm on the monitor. Bilateral upper arms contracted. Shiley 6.0, receiving oxygen per T piece 28%. Right upper arm PICC. With GJ tube. G tube connected to drainable bag per gravity. J tube receiving feeding of Vital AF 60ml/hr. Purewick in place. On P200 mattress. Seizure precautions observed. Head of bed elevated. Bed locked and in low position. Call light within reach. Bed alarm on
[2019-05-03] MEDS: Dyna-Hex 2% Top Sol 2oz TOPIC SCH (19:55)
--- NOTE | 2019-05-03 21:00 | NUR ---
NURSE NOTES: No signs of pain or discomfort. Secretion suctioned
[2019-05-04] VITALS (24 sets, daily range): BP systolic 102–145; BP diastolic 28–70
--- NOTE | 2019-05-04 | NUR ---
NURSE NOTES: Patient asleep. GJ tube flushed as ordered. G port output noted to be yellowish brown. Continues to drain per gravity
--- NOTE | 2019-05-04 02:00 | NUR ---
NURSE NOTES: Vital signs stable. No acute changes
[2019-05-04] MEDS: Albuterol/Ipratropium 3ml neb HHN SCH ×6 (03:24→23:17)
--- NOTE | 2019-05-04 05:00 | NUR ---
NURSE NOTES: Bed bath, oral care, change of linens done
[2019-05-04 06:18] LABS: ALANINE AMINOTRANSFERASE 113 U/L (12-78); ALBUMIN 2.7 G/DL (3.4-5.0); ALKALINE PHOSPHATASE 172 U/L (46-116); ASPARTATE AMINO TRANSFERASE 38 U/L (15-37); BILIRUBIN,DIRECT < 0.1 MG/DL (0.0-0.3); BILIRUBIN,TOTAL 0.2 MG/DL (0.2-1.0)
--- NOTE | 2019-05-04 07:10 | NUR ---
HAND-OFF: Report given to JEANNINE Delgado.
--- NOTE | 2019-05-04 07:11 | NUR ---
NURSE NOTES: Pt received from JEANNINE Church without cardiopulmonary distress noted. Pt is awake in bed, opens eyes spontaneously, pupils are equal and round 4mm and sluggish to light reaction. Pt is SR to classroom monitor, afebrile 97.7 F ax. radial pulses palpable 2+ bilaterally and dorsalis pedis pulses 2+ bilaterally. cap refill< 3 sec. Pt noted with T-piece on 5L O2 with FiO2 28. Lung sounds noted diminished to left upper and lower lobes. Right upper lobe noted with rhonchi upon auscultation. The right lower lobe noted with fine crackles. GT noted with dry and intact dressing hooked to drainage bag with thick yellow, brown gastric secretions. JT running Vital AF 1.2 at 60 cc/hr. no nausea or vomiting noted. Abd is round, soft, with active bowel sounds to all quadrants. Purewick noted draining yellow urine. Skin alterations noted. Pt has a JOSY PICC with dry and intact dressing running 1/2 NS at 50 cc/hr. Bed in lowest position, alarm on, side rails up x 2 and padded per seizure precaution, call light within reach, will continue to monitor.
--- NOTE | 2019-05-04 07:46 | General Progress Note ---
Assessment/Plan Problem List: (1) Seizure ICD Codes: R56.9 - Unspecified convulsions SNOMED: 54560959 (2) Anemia ICD Codes: D64.9 - Anemia, unspecified SNOMED: 683294804 Qualifiers: Qualified Codes: D64.9 - Anemia, unspecified (3) Sepsis ICD Codes: A41.9 - Sepsis, unspecified organism SNOMED: 70811694, 148858330 Qualifiers: Qualified Codes: A41.9 - Sepsis, unspecified organism (4) Respiratory failure with hypoxia ICD Codes: J96.91 - Respiratory failure, unspecified with hypoxia SNOMED: 71349614796935649 Qualifiers: Qualified Codes: J96.21 - Acute and chronic respiratory failure with hypoxia (5) HCAP (healthcare-associated pneumonia) ICD Codes: J18.9 - Pneumonia, unspecified organism SNOMED: 496143910, 837143443 (6) Sacral decubitus ulcer ICD Codes: L89.159 - Pressure ulcer of sacral region, unspecified stage SNOMED: 870646175 (7) HTN (hypertension) ICD Codes: I10 - Essential (primary) hypertension SNOMED: 21498409 (8) Chronic vegetative state ICD Codes: R40.3 - Persistent vegetative state SNOMED: 55850315 (9) Chronic respiratory failure ICD Codes: J96.10 - Chronic respiratory failure, unspecified whether with hypoxia or hypercapnia SNOMED: 52147731 (10) Limited mobility ICD Codes: Z74.09 - Other reduced mobility SNOMED: 6145788 Status: stable, progressing Assessment/Plan: vent as needed resp rx suctioning j tube feeds g port to gravity skin care sz rx monitor wbc and LFTss bowel regime dc planning Subjective ROS Limited/Unobtainable: No Constitutional: Reports: malaise, weakness HEENT: Reports: no symptoms Cardiovascular: Reports: no symptoms Respiratory: Reports: shortness of breath, sputum Gastrointestinal/Abdominal: Reports: difficulty swallowing Genitourinary: Reports: no symptoms Neurologic/Psychiatric: Reports: pre-existing deficit, seizure Endocrine: Reports: no symptoms Hematologic/Lymphatic: Reports: anemia Allergies: Coded Allergies: CODEINE (Verified Allergy, Unknown, HIVES, 09/15/09) All Systems: reviewed and negative except above Subjective no events. no reports of bleeding. tolerating feeds, no vomiting. minimal secretions. no szs Objective Last 24 Hour Vital Signs Date Time Temp Pulse Resp B/P (MAP) Pulse Ox O2 Delivery O2 Flow Rate FiO2 05/04/19 07:00 84 20 107/50 (69) 96 05/04/19 06:00 85 23 129/70 (89) 99 05/04/19 05:00 93 21 102/48 (66) 99 05/04/19 04:00 98.5 94 22 102/48 (66) 96 05/04/19 04:00 5.0 28 05/04/19 04:00 T-piece 5.0 T-piece 5.0 T-piece 5.0 T-piece 5.0 05/04/19 04:00 95 05/04/19 03:24 94 20 100 T-Piece 5.0 28 92 20 99 05/04/19 03:00 89 22 107/49 (68) 97 05/04/19 02:00 91 26 125/53 (77) 94 05/04/19 01:00 93 22 111/52 (71) 96 05/04/19 01:00 99 T-Piece 5.0 28 05/04/19 00:00 T-piece 5.0 T-piece 5.0 T-piece 5.0 T-piece 5.0 05/04/19 00:00 5.0 28 05/04/19 00:00 88 05/04/19 00:00 98.6 94 21 110/60 (77) 100 05/03/19 23:42 92 20 100 T-Piece 5.0 28 90 20 98 05/03/19 23:00 91 22 121/60 (80) 97 05/03/19 22:00 94 22 120/51 (74) 97 05/03/19 21:00 91 21 128/56 (80) 97 05/03/19 20:00 98.6 95 24 110/49 (69) 98 05/03/19 20:00 T-piece 5.0 T-piece 5.0 T-piece 5.0 T-piece 5.0 05/03/19 20:00 5.0 28 05/03/19 20:00 92 05/03/19 19:37 94 20 100 T-Piece 5.0 28 92 20 97 05/03/19 19:37 99 T-Piece 5.0 28 05/03/19 19:00 93 23 107/50 (69) 95 05/03/19 18:00 98 24 121/62 (81) 96 05/03/19 17:00 95 23 120/51 (74) 97 05/03/19 16:00 T-piece 5.0 T-piece 5.0 T-piece 5.0 T-piece 5.0 05/03/19 16:00 5.0 28 05/03/19 16:00 91 05/03/19 16:00 98.9 91 25 119/55 (76) 100 05/03/19 15:58 92 22 100 T-Piece 5.0 28 89 20 97 05/03/19 15:00 92 21 102/45 (64) 96 05/03/19 14:00 88 20 119/48 (71) 100 05/03/19 13:00 92 23 116/58 (77) 96 05/03/19 12:50 99 T-Piece 5.0 28 05/03/19 12:00 97.4 92 24 123/53 (76) 98 05/03/19 12:00 T-piece 5.0 T-piece 5.0 T-piece 5.0 T-piece 5.0 05/03/19 12:00 93 05/03/19 12:00 5.0 28 05/03/19 11:42 97 24 100 T-Piece 5.0 28 91 22 98 05/03/19 11:00 88 19 124/53 (76) 99 05/03/19 10:00 89 21 102/47 (65) 99 05/03/19 09:00 87 21 113/46 (68) 100 05/03/19 08:02 100 T-Piece 5.0 28 05/03/19 08:00 T-piece 5.0 T-piece 5.0 T-piece 5.0 T-piece 5.0 05/03/19 08:00 89 05/03/19 08:00 98.3 89 21 141/67 (91) 98 05/03/19 08:00 5.0 28 05/03/19 07:59 100 18 100 T-Piece 5.0 28 104 20 98 Intake and Output 05/03/19 05/04/19 19:00 07:00 Intake Total 2125 ml 2125 ml Output Total 700 ml 900 ml Balance 1425 ml 1225 ml Free Water 450 ml 450 ml IV Total 655 ml 655 ml Tube Feeding 720 ml 720 ml Other 300 ml 300 ml Output Urine Total 300 ml 400 ml Gastric Drainage Total 400 ml 500 ml # Bowel Movements 1 Laboratory Tests 05/04/19 04:00: Total Bilirubin 0.2, Direct Bilirubin < 0.1, Aspartate Amino Transf (AST/SGOT) 38H, Alanine Aminotransferase (ALT/SGPT) 113H, Alkaline Phosphatase 172H, Total Protein 8.2, Albumin 2.7L, Immunoglobulin G [Pending], SmRNP Antibodies [Pending ], Anti-Double Strand DNA Antibody [Pending], Anti-Single Strand DNA Antibody [ Pending], Anti-Mitochondrial Antibody [Pending], F-Actin IgG Antibody [Pending] Height (Feet): 5 Height (Inches): 3.00 Weight (Pounds): 128 Objective General Appearance: WD/WN, confused. on trach collar Neck: supple Cardiovascular: normal rate, regular rhythm Respiratory/Chest: chest wall non-tender, rhonchi - bilaterally(minimal) Abdomen: normal bowel sounds, non tender, soft, no organomegaly Edema: no edema noted Arm (L), no edema noted Arm (R), no edema noted Leg (L), no edema noted Leg (R), no edema noted Pedal (L), no edema noted Pedal (R), no edema noted Generalized Neurologic: disoriented, unresponsive, aphasia Irvin Beltrán MD May 04, 2019 07:46
--- NOTE | 2019-05-04 08:00 | NUR ---
Pt repositioned, no acute distress noted. Pt suctioned and oral care provided. JT flushed with 150 cc H20 and GT flushed with 100cc H20. Will continue to monitor.
[2019-05-04] MEDS: levETIRAcetam 500mg/5ml Liquid GT SCH ×2 (08:30→20:38)
[2019-05-04] MEDS: Sorbitol Solution UD 30ml GT SCH (08:31)
[2019-05-04] MEDS: Heparin 5000 units/ml inj SUBQ SCH ×2 (08:31→20:40)
--- NOTE | 2019-05-04 08:46 | Pulmonology Progress Note ---
Assessment/Plan Assessment/Plan Impression: history of Sepsis history of Pneumonia Trach, G tube, Hypertension, Cardiac disease, Dementia, Previous CVA, Seizure disorder, Respiratory failure with hypoxia Anemia, Sacral ulcer renal cyst chronic pulmonary congestion Plan continue with respiratory care monitor protein levels and adjust monitor imaging for change monitor labs and reflux aspiration ;monitor residuals elevate head and monitor secretions DNR. No CPR. ICU care reviewed meds noted and updated neb therapy off load as able nutrition/fees/ dietary skin care difficulty with placement monitor residual and reflux aspiration all changes noted and discussed chronic management reviewed medications/laboratory data/nursing notes/ICU care reviewed in detail note reviewed and edited care discussed with RN and RT Subjective ROS Limited/Unobtainable: Yes Allergies: Coded Allergies: CODEINE (Verified Allergy, Unknown, HIVES, 09/15/09) Subjective overnight events noted; still off vent multiple cultures noted ICU care issues discussed bed bound and obtunded poorly responsive Objective Last 24 Hour Vital Signs Date Time Temp Pulse Resp B/P (MAP) Pulse Ox O2 Delivery O2 Flow Rate FiO2 05/04/19 07:30 87 23 100 T-Piece 5.0 28 84 24 100 05/04/19 07:30 100 T-Piece 5.0 28 05/04/19 07:30 86 26 100 T-Piece 6.0 28 05/04/19 07:00 84 20 107/50 (69) 96 05/04/19 06:00 85 23 129/70 (89) 99 05/04/19 05:00 93 21 102/48 (66) 99 05/04/19 04:00 98.5 94 22 102/48 (66) 96 05/04/19 04:00 5.0 28 05/04/19 04:00 T-piece 5.0 T-piece 5.0 T-piece 5.0 T-piece 5.0 05/04/19 04:00 95 05/04/19 03:24 94 20 100 T-Piece 5.0 28 92 20 99 05/04/19 03:00 89 22 107/49 (68) 97 05/04/19 02:00 91 26 125/53 (77) 94 05/04/19 01:00 93 22 111/52 (71) 96 05/04/19 01:00 99 T-Piece 5.0 28 05/04/19 00:00 T-piece 5.0 T-piece 5.0 T-piece 5.0 T-piece 5.0 05/04/19 00:00 5.0 28 05/04/19 00:00 88 05/04/19 00:00 98.6 94 21 110/60 (77) 100 05/03/19 23:42 92 20 100 T-Piece 5.0 28 90 20 98 05/03/19 23:00 91 22 121/60 (80) 97 05/03/19 22:00 94 22 120/51 (74) 97 05/03/19 21:00 91 21 128/56 (80) 97 05/03/19 20:00 98.6 95 24 110/49 (69) 98 05/03/19 20:00 T-piece 5.0 T-piece 5.0 T-piece 5.0 T-piece 5.0 05/03/19 20:00 5.0 28 05/03/19 20:00 92 05/03/19 19:37 94 20 100 T-Piece 5.0 28 92 20 97 05/03/19 19:37 99 T-Piece 5.0 28 05/03/19 19:00 93 23 107/50 (69) 95 05/03/19 18:00 98 24 121/62 (81) 96 05/03/19 17:00 95 23 120/51 (74) 97 05/03/19 16:00 T-piece 5.0 T-piece 5.0 T-piece 5.0 T-piece 5.0 05/03/19 16:00 5.0 28 05/03/19 16:00 91 05/03/19 16:00 98.9 91 25 119/55 (76) 100 05/03/19 15:58 92 22 100 T-Piece 5.0 28 89 20 97 05/03/19 15:00 92 21 102/45 (64) 96 05/03/19 14:00 88 20 119/48 (71) 100 05/03/19 13:00 92 23 116/58 (77) 96 05/03/19 12:50 99 T-Piece 5.0 28 05/03/19 12:00 97.4 92 24 123/53 (76) 98 05/03/19 12:00 T-piece 5.0 T-piece 5.0 T-piece 5.0 T-piece 5.0 05/03/19 12:00 93 05/03/19 12:00 5.0 28 05/03/19 11:42 97 24 100 T-Piece 5.0 28 91 22 98 05/03/19 11:00 88 19 124/53 (76) 99 05/03/19 10:00 89 21 102/47 (65) 99 05/03/19 09:00 87 21 113/46 (68) 100 Intake and Output 05/03/19 05/04/19 19:00 07:00 Intake Total 2125 ml 2125 ml Output Total 700 ml 900 ml Balance 1425 ml 1225 ml Free Water 450 ml 450 ml IV Total 655 ml 655 ml Tube Feeding 720 ml 720 ml Other 300 ml 300 ml Output Urine Total 300 ml 400 ml Gastric Drainage Total 400 ml 500 ml # Bowel Movements 1 Objective WDWN NAD contracted off vent reduced breath sounds bilaterally without rhonchi or wheeze [id number] without MRG NABS nontender no HSM no CC trace edema same nonfocal nonverbal trach and gt reviewed and edited Microbiology Date/Time Source Procedure Growth Status 05/01/19 12:00 Sputum Gram Stain - Final Complete 05/01/19 12:00 Sputum Culture - Final Citrobacter Koseri Complete Laboratory Tests 05/04/19 04:00: Total Bilirubin 0.2, Direct Bilirubin < 0.1, Aspartate Amino Transf (AST/SGOT) 38H, Alanine Aminotransferase (ALT/SGPT) 113H, Alkaline Phosphatase 172H, Total Protein 8.2, Albumin 2.7L, Immunoglobulin G [Pending], SmRNP Antibodies [Pending ], Anti-Double Strand DNA Antibody [Pending], Anti-Single Strand DNA Antibody [ Pending], Anti-Mitochondrial Antibody [Pending], F-Actin IgG Antibody [Pending] Current Medications Medications (Trade) Dose Ordered Sig/Maicol Route PRN Reason Start Time Stop Time Status Last Admin Dose Admin Albuterol/ Ipratropium (Albuterol/ Ipratropium) 3 ml Q4HRT HHN 04/30/19 15:00 05/05/19 14:59 05/04/19 07:49 Atropine Sulfate (Atropine Opth Adriana) 1 drop THREE TIMES A DAY SL 04/08/19 09:00 05/07/19 20:59 05/03/19 17:29 Cefepime HCl 2 gm/ Dextrose 55 ml @ 110 mls/hr Q12H IVPB 05/01/19 11:00 05/08/19 10:59 05/03/19 23:58 Chlorhexidine Gluconate (Cesilia-Hex 2%) 1 applic DAILY@2000 TOPIC 04/12/19 20:00 05/12/19 19:59 05/03/19 19:55 Heparin Sodium (Porcine) (Heparin 5000 units/ml) 5,000 units EVERY 12 HOURS SUBQ 05/01/19 21:00 05/31/19 20:59 05/04/19 08:31 Hydralazine HCl (Apresoline) 25 mg Q6H PRN ORAL SBP above 150 04/06/19 02:45 05/06/19 02:44 04/06/19 11:15 Levetiracetam (Keppra) 500 mg Q12HR GT 05/01/19 21:00 05/28/19 08:59 05/04/19 08:30 Sodium Chloride 1,000 ml @ 50 mls/hr Q20H IV 05/02/19 17:15 06/01/19 17:14 05/03/19 12:57 Sorbitol (Sorbitol) 30 ml BIDPRN PRN ORAL Constipation 04/13/19 11:15 05/13/19 11:14 Sorbitol (sorbitoL) 30 ml DAILY GT 04/14/19 09:00 05/14/19 08:59 05/04/19 08:31 Amaury Chan MD May 04, 2019 08:46
[2019-05-04] MEDS: Cefepime HCl 2 GM in D5W 55 ML IVPB SCH (09:00)
--- NOTE | 2019-05-04 10:00 | NUR ---
NURSE NOTES: Pt repositioned, no acute care noted. Addendum: 05/04/19 at 1101 by Sandy Chi RN no acute distress* noted
--- NOTE | 2019-05-04 10:40 | Infectious Diseases Prog Note ---
Assessment/Plan Assessment/Plan antibiotics : cefepime A 1. citrobacter pneumonia 2. respiratory failure 3. hypertension 4. CVA 5. dementia 6. sacral decubitus ulcer 7. rectal VRE colonization 8. leucocytosis resolved P 1. continue cefepime 6 more days 2. will follow up cultures Subjective ROS Limited/Unobtainable: Yes Allergies: Coded Allergies: CODEINE (Verified Allergy, Unknown, HIVES, 09/15/09) Objective Vital Signs Last 24 Hour Vital Signs Date Time Temp Pulse Resp B/P (MAP) Pulse Ox O2 Delivery O2 Flow Rate FiO2 05/04/19 10:00 86 23 132/34 (66) 99 05/04/19 09:00 83 21 145/47 (79) 100 05/04/19 08:00 81 05/04/19 08:00 5.0 28 05/04/19 08:00 98.0 84 23 142/39 (73) 100 05/04/19 07:30 87 23 100 T-Piece 5.0 28 84 24 100 05/04/19 07:30 100 T-Piece 5.0 28 05/04/19 07:30 86 26 100 T-Piece 6.0 28 05/04/19 07:00 84 20 107/50 (69) 96 05/04/19 06:00 85 23 129/70 (89) 99 05/04/19 05:00 93 21 102/48 (66) 99 05/04/19 04:00 98.5 94 22 102/48 (66) 96 05/04/19 04:00 5.0 28 05/04/19 04:00 T-piece 5.0 T-piece 5.0 T-piece 5.0 T-piece 5.0 05/04/19 04:00 95 05/04/19 03:24 94 20 100 T-Piece 5.0 28 92 20 99 05/04/19 03:00 89 22 107/49 (68) 97 05/04/19 02:00 91 26 125/53 (77) 94 05/04/19 01:00 93 22 111/52 (71) 96 05/04/19 01:00 99 T-Piece 5.0 28 05/04/19 00:00 T-piece 5.0 T-piece 5.0 T-piece 5.0 T-piece 5.0 05/04/19 00:00 5.0 28 05/04/19 00:00 88 05/04/19 00:00 98.6 94 21 110/60 (77) 100 05/03/19 23:42 92 20 100 T-Piece 5.0 28 90 20 98 05/03/19 23:00 91 22 121/60 (80) 97 05/03/19 22:00 94 22 120/51 (74) 97 05/03/19 21:00 91 21 128/56 (80) 97 05/03/19 20:00 98.6 95 24 110/49 (69) 98 05/03/19 20:00 T-piece 5.0 T-piece 5.0 T-piece 5.0 T-piece 5.0 05/03/19 20:00 5.0 28 05/03/19 20:00 92 05/03/19 19:37 94 20 100 T-Piece 5.0 28 92 20 97 05/03/19 19:37 99 T-Piece 5.0 28 05/03/19 19:00 93 23 107/50 (69) 95 05/03/19 18:00 98 24 121/62 (81) 96 05/03/19 17:00 95 23 120/51 (74) 97 05/03/19 16:00 T-piece 5.0 T-piece 5.0 T-piece 5.0 T-piece 5.0 05/03/19 16:00 5.0 28 05/03/19 16:00 91 05/03/19 16:00 98.9 91 25 119/55 (76) 100 05/03/19 15:58 92 22 100 T-Piece 5.0 28 89 20 97 05/03/19 15:00 92 21 102/45 (64) 96 05/03/19 14:00 88 20 119/48 (71) 100 05/03/19 13:00 92 23 116/58 (77) 96 05/03/19 12:50 99 T-Piece 5.0 28 05/03/19 12:00 97.4 92 24 123/53 (76) 98 05/03/19 12:00 T-piece 5.0 T-piece 5.0 T-piece 5.0 T-piece 5.0 05/03/19 12:00 93 05/03/19 12:00 5.0 28 05/03/19 11:42 97 24 100 T-Piece 5.0 28 91 22 98 05/03/19 11:00 88 19 124/53 (76) 99 Height (Feet): 5 Height (Inches): 3.00 Weight (Pounds): 128 HEENT: status post trach Respiratory/Chest: crackles/rales, rhonchi - bilaterally Cardiovascular: normal rate, regular rhythm, no gallop/murmur Abdomen: soft, non tender, other - GT Extremities: no edema, other - right arm PICC Microbiology Date/Time Source Procedure Growth Status 05/01/19 12:00 Sputum Gram Stain - Final Complete 05/01/19 12:00 Sputum Culture - Final Citrobacter Koseri Complete Laboratory Tests Test 05/04/19 04:00 Total Bilirubin 0.2 MG/DL (0.2-1.0) Direct Bilirubin < 0.1 MG/DL (0.0-0.3) Aspartate Amino Transf (AST/SGOT) 38 U/L (15-37) H Alanine Aminotransferase (ALT/SGPT) 113 U/L (12-78) H Alkaline Phosphatase 172 U/L (46-116) H Total Protein 8.2 G/DL (6.4-8.2) Albumin 2.7 G/DL (3.4-5.0) L Immunoglobulin G Pending SmRNP Antibodies Pending Anti-Double Strand DNA Antibody Pending Anti-Single Strand DNA Antibody Pending Anti-Mitochondrial Antibody Pending F-Actin IgG Antibody Pending Current Medications Medications (Trade) Dose Ordered Sig/Maicol Route PRN Reason Start Time Stop Time Status Last Admin Dose Admin Albuterol/ Ipratropium (Albuterol/ Ipratropium) 3 ml Q4HRT HHN 04/30/19 15:00 05/05/19 14:59 05/04/19 07:49 Atropine Sulfate (Atropine Opth Adriana) 1 drop THREE TIMES A DAY SL 04/08/19 09:00 05/07/19 20:59 05/04/19 08:54 Cefepime HCl 2 gm/ Dextrose 55 ml @ 110 mls/hr DAILY IVPB 05/04/19 10:00 05/11/19 09:59 05/04/19 09:00 Chlorhexidine Gluconate (Cesilia-Hex 2%) 1 applic DAILY@2000 TOPIC 04/12/19 20:00 05/12/19 19:59 05/03/19 19:55 Heparin Sodium (Porcine) (Heparin 5000 units/ml) 5,000 units EVERY 12 HOURS SUBQ 05/01/19 21:00 05/31/19 20:59 05/04/19 08:31 Hydralazine HCl (Apresoline) 25 mg Q6H PRN ORAL SBP above 150 04/06/19 02:45 05/06/19 02:44 04/06/19 11:15 Levetiracetam (Keppra) 500 mg Q12HR GT 05/01/19 21:00 05/28/19 08:59 05/04/19 08:30 Sodium Chloride 1,000 ml @ 50 mls/hr Q20H IV 05/02/19 17:15 06/01/19 17:14 05/04/19 09:00 Sorbitol (Sorbitol) 30 ml BIDPRN PRN ORAL Constipation 04/13/19 11:15 05/13/19 11:14 Sorbitol (sorbitoL) 30 ml DAILY GT 04/14/19 09:00 05/14/19 08:59 05/04/19 08:31 Geovany Yang MD May 04, 2019 10:40
--- NOTE | 2019-05-04 12:00 | NUR ---
NURSE NOTES: Pt suctioned and oral care provided. Pt repositioned, in no acute distress. Linens changed, wound care performed. JT flushed with 150 cc H20 and GT flushed with 100cc H20. Will continue to monitor.
--- NOTE | 2019-05-04 13:22 | Nephrology Progress Note ---
Assessment/Plan Problem List: (1) Acute renal failure (ARF) Assessment: Cr stable (2) Chronic respiratory failure (3) Anemia (4) Sepsis Assessment Acute renal failure Respiratory failure - Trach Low Mag- Low k , Low Na Anemia UTI / Sepsis Proteinuria / HypoAlbuminemia high Trigs Sz decubs bed bound DNR Plan Transfused previously now has JT bolus Albumin as needed K and Mag and Phos supplement as needed Hydrate as needed Urine studies avoid Nephrotoxics mag K Phos supplements as needed monitor renal parameters Subjective ROS Limited/Unobtainable: Yes Objective Objective Last 24 Hour Vital Signs Date Time Temp Pulse Resp B/P (MAP) Pulse Ox O2 Delivery O2 Flow Rate FiO2 05/04/19 13:04 100 T-Piece 5.0 28 05/04/19 13:00 86 20 129/48 (75) 100 05/04/19 12:00 83 05/04/19 12:00 98.2 85 21 141/28 (65) 100 05/04/19 12:00 5.0 28 05/04/19 11:24 78 16 100 T-Piece 5.0 28 79 17 100 05/04/19 11:00 80 20 107/28 (54) 100 05/04/19 10:00 86 23 132/34 (66) 99 05/04/19 09:00 83 21 145/47 (79) 100 05/04/19 08:00 T-piece 5.0 T-piece 5.0 T-piece 5.0 T-piece 5.0 05/04/19 08:00 81 05/04/19 08:00 5.0 28 05/04/19 08:00 98.0 84 23 142/39 (73) 100 05/04/19 07:30 87 23 100 T-Piece 5.0 28 84 24 100 05/04/19 07:30 100 T-Piece 5.0 28 05/04/19 07:30 86 26 100 T-Piece 6.0 28 05/04/19 07:00 84 20 107/50 (69) 96 05/04/19 06:00 85 23 129/70 (89) 99 05/04/19 05:00 93 21 102/48 (66) 99 05/04/19 04:00 98.5 94 22 102/48 (66) 96 05/04/19 04:00 5.0 28 05/04/19 04:00 T-piece 5.0 T-piece 5.0 T-piece 5.0 T-piece 5.0 05/04/19 04:00 95 05/04/19 03:24 94 20 100 T-Piece 5.0 28 92 20 99 05/04/19 03:00 89 22 107/49 (68) 97 05/04/19 02:00 91 26 125/53 (77) 94 05/04/19 01:00 93 22 111/52 (71) 96 05/04/19 01:00 99 T-Piece 5.0 28 05/04/19 00:00 T-piece 5.0 T-piece 5.0 T-piece 5.0 T-piece 5.0 05/04/19 00:00 5.0 28 05/04/19 00:00 88 05/04/19 00:00 98.6 94 21 110/60 (77) 100 05/03/19 23:42 92 20 100 T-Piece 5.0 28 90 20 98 05/03/19 23:00 91 22 121/60 (80) 97 05/03/19 22:00 94 22 120/51 (74) 97 05/03/19 21:00 91 21 128/56 (80) 97 05/03/19 20:00 98.6 95 24 110/49 (69) 98 05/03/19 20:00 T-piece 5.0 T-piece 5.0 T-piece 5.0 T-piece 5.0 05/03/19 20:00 5.0 28 05/03/19 20:00 92 05/03/19 19:37 94 20 100 T-Piece 5.0 28 92 20 97 05/03/19 19:37 99 T-Piece 5.0 28 05/03/19 19:00 93 23 107/50 (69) 95 05/03/19 18:00 98 24 121/62 (81) 96 05/03/19 17:00 95 23 120/51 (74) 97 05/03/19 16:00 T-piece 5.0 T-piece 5.0 T-piece 5.0 T-piece 5.0 05/03/19 16:00 5.0 28 05/03/19 16:00 91 05/03/19 16:00 98.9 91 25 119/55 (76) 100 2/2/20 15:58 92 22 100 T-Piece 5.0 28 89 20 97 05/03/19 15:00 92 21 102/45 (64) 96 05/03/19 14:00 88 20 119/48 (71) 100 Intake and Output 05/03/19 05/04/19 19:00 07:00 Intake Total 2125 ml 2125 ml Output Total 700 ml 900 ml Balance 1425 ml 1225 ml Free Water 450 ml 450 ml IV Total 655 ml 655 ml Tube Feeding 720 ml 720 ml Other 300 ml 300 ml Output Urine Total 300 ml 400 ml Gastric Drainage Total 400 ml 500 ml # Bowel Movements 1 Laboratory Tests 05/04/19 04:00: Total Bilirubin 0.2, Direct Bilirubin < 0.1, Aspartate Amino Transf (AST/SGOT) 38H, Alanine Aminotransferase (ALT/SGPT) 113H, Alkaline Phosphatase 172H, Total Protein 8.2, Albumin 2.7L, Immunoglobulin G [Pending], SmRNP Antibodies [Pending ], Anti-Double Strand DNA Antibody [Pending], Anti-Single Strand DNA Antibody [ Pending], Anti-Mitochondrial Antibody [Pending], F-Actin IgG Antibody [Pending] Height (Feet): 5 Height (Inches): 3.00 Weight (Pounds): 128 General Appearance: no apparent distress EENT: other - trach to O2 Respiratory/Chest: decreased breath sounds Abdomen: soft Objective no change Eric Cortez MD May 04, 2019 13:22
--- NOTE | 2019-05-04 13:47 | NUR ---
RD ASSESSMENT & RECOMMENDATIONS SEE CARE ACTIVITY FOR COMPLETE ASSESSMENT DAILY ESTIMATED NEEDS: Needs based on Pulmonary, wounds, bedbound/ 61kg adj 25-30 kcals/kg 1285-4578 total kcals 1.25-2 g protein/kg 76-122 g total protein 25-30 mL/kg 9248-4867 total fluid mLs NUTRITION DIAGNOSIS: * Increased kcal/prot needs R/T wound healing as evidenced by BL buttocks and sacral wound photos, refer to WC eval-> wounds resolving, sacrum healed. * Swallowing difficulty R/T respiratory status as evidenced by pt on T-collar, s/p G-J conversion CURRENT TF:Vital AF 1.2 @ 60ml/hr x 24 hrs w/ water flushes via G port (100ml q 4 hrs) + J port (150ml q 4 hrs) ---> provides additional 1500ml free H20 ENTERAL NUTRITION RECOMMENDATIONS: VITAL AF 1.2 @ 60ml/hr x 24 hrs to provide 1440ml, 1728kcal, 108g prot, 1167ml free water - Maintain current TF as tolerated-> meets 100% est needs - HOB over 30 degrees - Water flushes per MD (monitor need to increase water flushes. BUN trend down). ADDITIONAL RECOMMENDATIONS: 1) Maintain calibrated bedscale wt: fluctuating daily wts 2) Wound healing: maintain Cristian BID for skin integrity 3) Monitor BGs closely, need for NISS -> now w/ improved BGs 4) Monitor for continued good TF tolerance 5) Monitor hydration status : BUN trend down (water flushes increased, IVF added) .
--- NOTE | 2019-05-04 13:50 | NUR ---
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 98.2 HR 85 RR 21 B/P 141/61 TRACH FIO2 28% AST 38 ALT 113 ALK PHOS 172 WBC 14.2 (O2/01) IS: CEFEPIME IV IVF NS @ 50ML/HR ALB HHN HEPARIN SUBC PLACEMENT PENDING ICU STATUS
--- NOTE | 2019-05-04 14:00 | NUR ---
NURSE NOTES: Pt repositioned and suctioned. 1 Cristian given. Pt in no acute distress. Will continue to monitor.
--- NOTE | 2019-05-04 14:12 | NUR ---
*-* DISCHARGE PLANNING *-* PATIENT HAS BEEN REFERRED TO: [facility] P: [phone] F: [phone]
[2019-05-04] MEDS ORDERED: 1/2 NS 1000ml IV ONE (14:16)
[2019-05-04] MEDS ORDERED: Sterile Water Irrig 1000ml IRRIG ONE (14:16)
--- NOTE | 2019-05-04 14:25 | NUR ---
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 CLINICALS FAXED TO [facility], WILL FOLLOW UP.
--- NOTE | 2019-05-04 14:31 | NUR ---
*-* DISCHARGE PLANNING *-* PATIENT HAS BEEN REFERRED TO: [facility] P: [phone] F: [phone]
--- NOTE | 2019-05-04 16:00 | NUR ---
NURSE NOTES: Pt repositioned, oral care provided and pt suctioned. GT flushed with 100 cc H20 and JT with 150 cc H20. Pt in no acute distress at this time, asleep in bed.
--- NOTE | 2019-05-04 18:00 | NUR ---
NURSE NOTES: Pt repositioned, suctioned, and cleaned. 1 small, soft, brown BM noted. Pt in no acute distress at this time. Will continue to monitor.
--- NOTE | 2019-05-04 19:25 | NUR ---
HAND-OFF: Report given to JEANNINE Aguilar. Pt in stable condtion. No acute distress.
--- NOTE | 2019-05-04 19:26 | NUR ---
RESPIRATORY NOTE: Received pt on 28% Cool Aerosol via T-Piece. Pt is trach-dependent w/ a cuffed, Shiley 6 XLT tube. Cuff is currently deflated. Pt asleep/flat effect, responds to stimuli. B/S flory. rhonchi, sxn small to moderate amounts of thin/frothy, white to pale-yellow secretions. [place] at bedside. Pt comfortable, in no apparent distress at this time. Will continue to monitor pt.
--- NOTE | 2019-05-04 20:00 | NUR ---
NURSE NOTES: received report from deloris rn pt non verbal trach jn 6 xlt -t-piece 28 0/0 o2 98-100 no acute resp distress reposition and suction iv infusing rt ua picc dressing dry and intact tolerating tube feeding no residual
[2019-05-04] MEDS: Dyna-Hex 2% Top Sol 2oz TOPIC SCH (20:04)
--- NOTE | 2019-05-04 21:23 | General Progress Note ---
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 auto immune hepatitis - Anemia with OB (-) stools - Resp failure, s/p Trach - dysphagia, s/p PEG --> GJ tube - OBS, vegetative obtunded unresponsive state, bedbound with contracted extremities, - h/o minor GJ tube site irritation - poor Prognosis Recommendations - daily sorbitol, and PRN sorbitol - Cristian BID - antibiotic ointment to GJT site PRN - aspiration precautions - elevate HOB - Vital AF 1.2 - check q 6 hour FS - transfuse to keep Hg > 7 - J tube feeds - G tube drain - IVF - check ESR - further evaluation for autoimmune hepatitis (AMA, serum IgG, anti DNA, ASMA) Subjective Allergies: Coded Allergies: CODEINE (Verified Allergy, Unknown, HIVES, 09/15/09) Subjective above noted tolerating TF Objective Last 24 Hour Vital Signs Date Time Temp Pulse Resp B/P (MAP) Pulse Ox O2 Delivery O2 Flow Rate FiO2 05/04/19 20:00 98.4 89 17 133/51 (78) 97 05/04/19 19:33 88 21 100 T-Piece 5.0 28 05/04/19 19:23 98 T-Piece 5.0 28 05/04/19 19:23 86 22 98 T-Piece 5.0 28 05/04/19 19:00 89 21 123/43 (69) 98 05/04/19 18:00 84 22 126/28 (60) 100 05/04/19 17:00 84 20 130/33 (65) 99 05/04/19 16:00 98.1 84 20 108/44 (65) 98 05/04/19 16:00 84 05/04/19 16:00 T-piece 5.0 T-piece 5.0 T-piece 5.0 T-piece 5.0 05/04/19 16:00 5.0 28 05/04/19 15:17 84 19 98 T-Piece 5.0 28 82 21 98 05/04/19 15:00 83 21 116/51 (72) 98 05/04/19 14:00 87 21 136/48 (77) 97 05/04/19 13:04 100 T-Piece 5.0 28 05/04/19 13:00 86 20 129/48 (75) 100 05/04/19 12:00 T-piece 5.0 T-piece 5.0 T-piece 5.0 T-piece 5.0 05/04/19 12:00 83 05/04/19 12:00 98.2 85 21 141/28 (65) 100 05/04/19 12:00 5.0 28 05/04/19 11:24 78 16 100 T-Piece 5.0 28 79 17 100 05/04/19 11:00 80 20 107/28 (54) 100 05/04/19 10:00 86 23 132/34 (66) 99 05/04/19 09:00 83 21 145/47 (79) 100 05/04/19 08:00 T-piece 5.0 T-piece 5.0 T-piece 5.0 T-piece 5.0 05/04/19 08:00 81 05/04/19 08:00 5.0 28 05/04/19 08:00 98.0 84 23 142/39 (73) 100 05/04/19 07:30 87 23 100 T-Piece 5.0 28 84 24 100 05/04/19 07:30 100 T-Piece 5.0 28 05/04/19 07:30 86 26 100 T-Piece 6.0 28 05/04/19 07:00 84 20 107/50 (69) 96 05/04/19 06:00 85 23 129/70 (89) 99 05/04/19 05:00 93 21 102/48 (66) 99 05/04/19 04:00 98.5 94 22 102/48 (66) 96 05/04/19 04:00 5.0 28 05/04/19 04:00 T-piece 5.0 T-piece 5.0 T-piece 5.0 T-piece 5.0 05/04/19 04:00 95 05/04/19 03:24 94 20 100 T-Piece 5.0 28 92 20 99 05/04/19 03:00 89 22 107/49 (68) 97 05/04/19 02:00 91 26 125/53 (77) 94 05/04/19 01:00 93 22 111/52 (71) 96 05/04/19 01:00 99 T-Piece 5.0 28 05/04/19 00:00 T-piece 5.0 T-piece 5.0 T-piece 5.0 T-piece 5.0 05/04/19 00:00 5.0 28 05/04/19 00:00 88 05/04/19 00:00 98.6 94 21 110/60 (77) 100 05/03/19 23:42 92 20 100 T-Piece 5.0 28 90 20 98 05/03/19 23:00 91 22 121/60 (80) 97 05/03/19 22:00 94 22 120/51 (74) 97 Intake and Output 05/03/19 05/04/19 19:00 07:00 Intake Total 2125 ml 2125 ml Output Total 700 ml 900 ml Balance 1425 ml 1225 ml Free Water 450 ml 450 ml IV Total 655 ml 655 ml Tube Feeding 720 ml 720 ml Other 300 ml 300 ml Output Urine Total 300 ml 400 ml Gastric Drainage Total 400 ml 500 ml # Bowel Movements 1 Laboratory Tests 05/04/19 04:00: Total Bilirubin 0.2, Direct Bilirubin < 0.1, Aspartate Amino Transf (AST/SGOT) 38H, Alanine Aminotransferase (ALT/SGPT) 113H, Alkaline Phosphatase 172H, Total Protein 8.2, Albumin 2.7L, Immunoglobulin G [Pending], SmRNP Antibodies [Pending ], Anti-Double Strand DNA Antibody [Pending], Anti-Single Strand DNA Antibody [ Pending], Anti-Mitochondrial Antibody [Pending], F-Actin IgG Antibody [Pending] Height (Feet): 5 Height (Inches): 3.00 Weight (Pounds): 128 Objective Debilitated AA woman non-verbal, obtunded NCAT (+) trach coarse BS RR obese abd, (+) GJT no edema (+) contractured extremities Celio Vaughan MD May 04, 2019 21:23
--- NOTE | 2019-05-04 22:00 | NUR ---
NURSE NOTES: reposition and suction no acute resp distress noted
[2019-05-05] VITALS (24 sets, daily range): BP systolic 99–164; BP diastolic 26–70
--- NOTE | 2019-05-05 | NUR ---
NURSE NOTES: reposition and suction condition un change
--- NOTE | 2019-05-05 02:00 | NUR ---
NURSE NOTES: reposition and suction
[2019-05-05] MEDS: Albuterol/Ipratropium 3ml neb HHN SCH ×5 (03:05→23:30)
--- NOTE | 2019-05-05 04:00 | NUR ---
NURSE NOTES: had large soft bm complete bed bath done and wound care done and dressing change
--- NOTE | 2019-05-05 06:00 | NUR ---
NURSE NOTES: reposition and suction dr meredith in and seen pt
--- NOTE | 2019-05-05 07:15 | NUR ---
NURSE NOTES: Received report from JEANNINE Armstrong. Patient is awake and unable to follow commands. Trach/T-piece with FiO2 28%. GJ tube intact, G-port to gravity and J-tube to tube feeding; Jevity 1.2 60ml/hr. Right upper arm PICC intact and running with 1/2 NS @ 50ml/hr. No distress/SOB noted. Kept dry, clean, comfortable and HOB>30. Will continue plan of care.
--- NOTE | 2019-05-05 07:26 | NUR ---
HAND-OFF: Report given to hussein mann using sbar.
[2019-05-05 08:28] LABS: ALANINE AMINOTRANSFERASE 91 U/L (12-78); ALBUMIN 2.8 G/DL (3.4-5.0); ALBUMIN/GLOBULIN RATIO 0.5 (1.0-2.7); ALKALINE PHOSPHATASE 159 U/L (46-116); ANION GAP 6 mmol/L (5-15); ASPARTATE AMINO TRANSFERASE 34 U/L (15-37); BILIRUBIN,TOTAL 0.2 MG/DL (0.2-1.0); BLOOD UREA NITROGEN 59 mg/dL (7-18); CALCIUM 9.3 MG/DL (8.5-10.1); CARBON DIOXIDE 32 MMOL/L (21-32); CHLORIDE 101 MMOL/L (98-107); POTASSIUM 4.2 MMOL/L (3.5-5.1); SODIUM 139 MMOL/L (136-145)
--- NOTE | 2019-05-05 08:38 | Pulmonology Progress Note ---
Assessment/Plan Assessment/Plan Impression: history of Sepsis history of Pneumonia Trach, G tube, Hypertension, Cardiac disease, Dementia, Previous CVA, Seizure disorder, Respiratory failure with hypoxia Anemia, Sacral ulcer renal cyst chronic pulmonary congestion Plan continue with respiratory care monitor protein levels and adjust monitor imaging for change monitor labs and reflux aspiration ;monitor residuals elevate head and monitor secretions DNR. No CPR. ICU care reviewed meds noted and updated neb therapy off load as able nutrition/fees/ dietary skin care difficulty with placement monitor residual and reflux aspiration all changes noted and discussed chronic management reviewed medications/laboratory data/nursing notes/ICU care reviewed in detail note reviewed and edited care discussed with RN and RT Subjective ROS Limited/Unobtainable: Yes Allergies: Coded Allergies: CODEINE (Verified Allergy, Unknown, HIVES, 09/15/09) Subjective overnight events noted; still off vent multiple cultures noted ICU care issues discussed bed bound and obtunded poorly responsive Objective Last 24 Hour Vital Signs Date Time Temp Pulse Resp B/P (MAP) Pulse Ox O2 Delivery O2 Flow Rate FiO2 05/05/19 07:03 99 T-Piece 5.0 28 05/05/19 07:00 93 26 99 T-Piece 5.0 28 94 24 96 05/05/19 06:00 91 23 131/61 (84) 98 05/05/19 05:00 96 21 142/70 (94) 100 05/05/19 04:00 5.0 28 05/05/19 04:00 98.4 96 20 99/47 (64) 95 05/05/19 04:00 T-piece 5.0 T-piece 5.0 T-piece 5.0 T-piece 5.0 05/05/19 04:00 99 05/05/19 03:15 98 22 99 T-Piece 5.0 28 05/05/19 03:05 93 24 99 T-Piece 5.0 28 05/05/19 03:00 93 26 125/55 (78) 98 05/05/19 02:00 93 37 123/59 (80) 96 05/05/19 01:00 97.8 94 21 136/36 (69) 98 05/05/19 00:58 99 T-Piece 5.0 28 05/05/19 00:00 86 05/05/19 00:00 5.0 28 05/05/19 00:00 96 25 139/33 (68) 96 05/05/19 00:00 T-piece 5.0 T-piece 5.0 T-piece 5.0 T-piece 5.0 05/04/19 23:27 95 25 100 T-Piece 5.0 28 05/04/19 23:17 94 24 100 T-Piece 5.0 28 05/04/19 23:00 91 22 113/53 (73) 97 05/04/19 22:00 89 22 107/60 (76) 99 05/04/19 21:00 85 21 121/34 (63) 98 05/04/19 20:00 86 05/04/19 20:00 98.4 89 17 133/51 (78) 97 05/04/19 20:00 T-piece 5.0 T-piece 5.0 T-piece 5.0 T-piece 5.0 05/04/19 20:00 5.0 28 05/04/19 19:33 88 21 100 T-Piece 5.0 28 05/04/19 19:23 98 T-Piece 5.0 28 05/04/19 19:23 86 22 98 T-Piece 5.0 28 05/04/19 19:00 89 21 123/43 (69) 98 05/04/19 18:00 84 22 126/28 (60) 100 05/04/19 17:00 84 20 130/33 (65) 99 05/04/19 16:00 98.1 84 20 108/44 (65) 98 05/04/19 16:00 84 05/04/19 16:00 T-piece 5.0 T-piece 5.0 T-piece 5.0 T-piece 5.0 05/04/19 16:00 5.0 28 05/04/19 15:17 84 19 98 T-Piece 5.0 28 82 21 98 05/04/19 15:00 83 21 116/51 (72) 98 05/04/19 14:00 87 21 136/48 (77) 97 05/04/19 13:04 100 T-Piece 5.0 28 05/04/19 13:00 86 20 129/48 (75) 100 05/04/19 12:00 T-piece 5.0 T-piece 5.0 T-piece 5.0 T-piece 5.0 2/3/20 12:00 83 05/04/19 12:00 98.2 85 21 141/28 (65) 100 05/04/19 12:00 5.0 28 05/04/19 11:24 78 16 100 T-Piece 5.0 28 79 17 100 05/04/19 11:00 80 20 107/28 (54) 100 05/04/19 10:00 86 23 132/34 (66) 99 05/04/19 09:00 83 21 145/47 (79) 100 Intake and Output 05/04/19 05/05/19 19:00 07:00 Intake Total 2075 ml 2020 ml Output Total 1000 ml 1300 ml Balance 1075 ml 720 ml Free Water 300 ml 300 ml IV Total 605 ml 610 ml Tube Feeding 720 ml 660 ml Other 450 ml 450 ml Output Urine Total 300 ml 400 ml Gastric Drainage Total 700 ml 900 ml # Voids 1 # Bowel Movements 1 1 Objective WDWN NAD contracted off vent reduced breath sounds bilaterally without rhonchi or wheeze [id number] without MRG NABS nontender no HSM no CC trace edema same nonfocal nonverbal trach and gt reviewed and edited Laboratory Tests 05/05/19 05:14: Sodium Level 139, Potassium Level 4.2, Chloride Level 101, Carbon Dioxide Level 32, Anion Gap 6, Blood Urea Nitrogen 59H, Creatinine 1.0, Estimat Glomerular Filtration Rate , Glucose Level 104, Calcium Level 9.3, Total Bilirubin 0.2, Aspartate Amino Transf (AST/SGOT) 34, Alanine Aminotransferase (ALT/SGPT) 91H, Alkaline Phosphatase 159H, Total Protein 8.2, Albumin 2.8L, Globulin 5.4, Albumin/Globulin Ratio 0.5L Current Medications Medications (Trade) Dose Ordered Sig/Maicol Route PRN Reason Start Time Stop Time Status Last Admin Dose Admin Albuterol/ Ipratropium (Albuterol/ Ipratropium) 3 ml Q4HRT HHN 04/30/19 15:00 05/05/19 14:59 05/05/19 07:04 Atropine Sulfate (Atropine Opth Adriana) 1 drop THREE TIMES A DAY SL 04/08/19 09:00 05/07/19 20:59 05/04/19 17:02 Cefepime HCl 2 gm/ Dextrose 55 ml @ 110 mls/hr DAILY IVPB 05/04/19 10:00 05/11/19 09:59 2/3/20 09:00 Chlorhexidine Gluconate (Cesilia-Hex 2%) 1 applic DAILY@2000 TOPIC 04/12/19 20:00 05/12/19 19:59 05/04/19 20:04 Heparin Sodium (Porcine) (Heparin 5000 units/ml) 5,000 units EVERY 12 HOURS SUBQ 05/01/19 21:00 05/31/19 20:59 05/04/19 20:40 Hydralazine HCl (Apresoline) 25 mg Q6H PRN ORAL SBP above 150 04/06/19 02:45 05/06/19 02:44 04/06/19 11:15 Levetiracetam (Keppra) 500 mg Q12HR GT 05/01/19 21:00 05/28/19 08:59 05/04/19 20:38 Sodium Chloride 1,000 ml @ 50 mls/hr Q20H IV 05/02/19 17:15 06/01/19 17:14 05/05/19 05:15 Sorbitol (Sorbitol) 30 ml BIDPRN PRN ORAL Constipation 04/13/19 11:15 05/13/19 11:14 Sorbitol (sorbitoL) 30 ml DAILY GT 04/14/19 09:00 05/14/19 08:59 05/04/19 08:31 Amaury Chan MD May 05, 2019 08:38
--- NOTE | 2019-05-05 08:41 | Infectious Diseases Prog Note ---
Assessment/Plan Assessment/Plan A 1. Citrobacter pneumonia 2. respiratory failure 3. hypertension 4. CVA 5. dementia 6. sacral decubitus ulcer 7. rectal VRE colonization 8. Anemia 9. Proteus UTI 10. Acute renal failure 11. Leukocytosis resolved P 1 Continue Cefepime 2. Frequent suctioning 3. Remove PICC line before discharge 4. f/u CXR Subjective ROS Limited/Unobtainable: Yes Constitutional: Denies: fever Allergies: Coded Allergies: CODEINE (Verified Allergy, Unknown, HIVES, 09/15/09) Objective Vital Signs Last 24 Hour Vital Signs Date Time Temp Pulse Resp B/P (MAP) Pulse Ox O2 Delivery O2 Flow Rate FiO2 05/05/19 07:03 99 T-Piece 5.0 28 05/05/19 07:00 93 26 99 T-Piece 5.0 28 94 24 96 05/05/19 06:00 91 23 131/61 (84) 98 05/05/19 05:00 96 21 142/70 (94) 100 05/05/19 04:00 5.0 28 05/05/19 04:00 98.4 96 20 99/47 (64) 95 05/05/19 04:00 T-piece 5.0 T-piece 5.0 T-piece 5.0 T-piece 5.0 05/05/19 04:00 99 05/05/19 03:15 98 22 99 T-Piece 5.0 28 05/05/19 03:05 93 24 99 T-Piece 5.0 28 05/05/19 03:00 93 26 125/55 (78) 98 05/05/19 02:00 93 37 123/59 (80) 96 05/05/19 01:00 97.8 94 21 136/36 (69) 98 05/05/19 00:58 99 T-Piece 5.0 28 05/05/19 00:00 86 05/05/19 00:00 5.0 28 05/05/19 00:00 96 25 139/33 (68) 96 05/05/19 00:00 T-piece 5.0 T-piece 5.0 T-piece 5.0 T-piece 5.0 05/04/19 23:27 95 25 100 T-Piece 5.0 28 05/04/19 23:17 94 24 100 T-Piece 5.0 28 05/04/19 23:00 91 22 113/53 (73) 97 05/04/19 22:00 89 22 107/60 (76) 99 05/04/19 21:00 85 21 121/34 (63) 98 05/04/19 20:00 86 05/04/19 20:00 98.4 89 17 133/51 (78) 97 05/04/19 20:00 T-piece 5.0 T-piece 5.0 T-piece 5.0 T-piece 5.0 05/04/19 20:00 5.0 28 05/04/19 19:33 88 21 100 T-Piece 5.0 28 05/04/19 19:23 98 T-Piece 5.0 28 05/04/19 19:23 86 22 98 T-Piece 5.0 28 05/04/19 19:00 89 21 123/43 (69) 98 05/04/19 18:00 84 22 126/28 (60) 100 05/04/19 17:00 84 20 130/33 (65) 99 05/04/19 16:00 98.1 84 20 108/44 (65) 98 05/04/19 16:00 84 05/04/19 16:00 T-piece 5.0 T-piece 5.0 T-piece 5.0 T-piece 5.0 05/04/19 16:00 5.0 28 05/04/19 15:17 84 19 98 T-Piece 5.0 28 82 21 98 05/04/19 15:00 83 21 116/51 (72) 98 05/04/19 14:00 87 21 136/48 (77) 97 05/04/19 13:04 100 T-Piece 5.0 28 05/04/19 13:00 86 20 129/48 (75) 100 05/04/19 12:00 T-piece 5.0 T-piece 5.0 T-piece 5.0 T-piece 5.0 05/04/19 12:00 83 05/04/19 12:00 98.2 85 21 141/28 (65) 100 05/04/19 12:00 5.0 28 05/04/19 11:24 78 16 100 T-Piece 5.0 28 79 17 100 05/04/19 11:00 80 20 107/28 (54) 100 05/04/19 10:00 86 23 132/34 (66) 99 05/04/19 09:00 83 21 145/47 (79) 100 Height (Feet): 5 Height (Inches): 3.00 Weight (Pounds): 132 HEENT: status post trach Respiratory/Chest: rhonchi - bilaterally, other - on Tbar Cardiovascular: normal rate, other - R arm PICC line Abdomen: soft, non tender, other - GT feeding Extremities: no edema Skin: ulcers Neurologic/Psychiatric: unresponsiveness, aphasia Laboratory Tests Test 05/05/19 05:14 Sodium Level 139 MMOL/L (136-145) Potassium Level 4.2 MMOL/L (3.5-5.1) Chloride Level 101 MMOL/L (98-107) Carbon Dioxide Level 32 MMOL/L (21-32) Anion Gap 6 mmol/L (5-15) Blood Urea Nitrogen 59 mg/dL (7-18) H Creatinine 1.0 MG/DL (0.55-1.30) Estimat Glomerular Filtration Rate mL/min (>60) Glucose Level 104 MG/DL (74-106) Calcium Level 9.3 MG/DL (8.5-10.1) Total Bilirubin 0.2 MG/DL (0.2-1.0) Aspartate Amino Transf (AST/SGOT) 34 U/L (15-37) Alanine Aminotransferase (ALT/SGPT) 91 U/L (12-78) H Alkaline Phosphatase 159 U/L (46-116) H Total Protein 8.2 G/DL (6.4-8.2) Albumin 2.8 G/DL (3.4-5.0) L Globulin 5.4 g/dL Albumin/Globulin Ratio 0.5 (1.0-2.7) L Current Medications Medications (Trade) Dose Ordered Sig/Maicol Route PRN Reason Start Time Stop Time Status Last Admin Dose Admin Albuterol/ Ipratropium (Albuterol/ Ipratropium) 3 ml Q4HRT HHN 04/30/19 15:00 05/05/19 14:59 05/05/19 07:04 Atropine Sulfate (Atropine Opth Adriana) 1 drop THREE TIMES A DAY SL 04/08/19 09:00 05/07/19 20:59 05/04/19 17:02 Cefepime HCl 2 gm/ Dextrose 55 ml @ 110 mls/hr DAILY IVPB 05/04/19 10:00 05/11/19 09:59 05/04/19 09:00 Chlorhexidine Gluconate (Cesilia-Hex 2%) 1 applic DAILY@2000 TOPIC 04/12/19 20:00 05/12/19 19:59 05/04/19 20:04 Heparin Sodium (Porcine) (Heparin 5000 units/ml) 5,000 units EVERY 12 HOURS SUBQ 05/01/19 21:00 05/31/19 20:59 05/04/19 20:40 Hydralazine HCl (Apresoline) 25 mg Q6H PRN ORAL SBP above 150 04/06/19 02:45 05/06/19 02:44 04/06/19 11:15 Levetiracetam (Keppra) 500 mg Q12HR GT 05/01/19 21:00 05/28/19 08:59 05/04/19 20:38 Sodium Chloride 1,000 ml @ 50 mls/hr Q20H IV 05/02/19 17:15 06/01/19 17:14 05/05/19 05:15 Sorbitol (Sorbitol) 30 ml BIDPRN PRN ORAL Constipation 04/13/19 11:15 05/13/19 11:14 Sorbitol (sorbitoL) 30 ml DAILY GT 04/14/19 09:00 05/14/19 08:59 05/04/19 08:31 Chauncey Liriano MD May 05, 2019 08:41
[2019-05-05] MEDS: levETIRAcetam 500mg/5ml Liquid GT SCH ×2 (08:48→20:32)
[2019-05-05] MEDS: Sorbitol Solution UD 30ml GT SCH (08:48)
[2019-05-05] MEDS: Cefepime HCl 2 GM in D5W 55 ML IVPB SCH (08:48)
[2019-05-05] MEDS: Heparin 5000 units/ml inj SUBQ SCH ×2 (08:49→20:34)
--- NOTE | 2019-05-05 09:16 | NUR ---
NURSE NOTES: Seen by Dr. Jm Liriano and assessed patient.
--- NOTE | 2019-05-05 10:55 | NUR ---
NURSE NOTES: Seen by Wound Care Nurse and treatment given. Bed bath given.
--- NOTE | 2019-05-05 12:05 | NUR ---
NURSE NOTES: Repositioned patient. Oral care given.
[2019-05-05] MEDS ORDERED: D5 1/2NS 1000ml IV ONE (13:16)
[2019-05-05] MEDS ORDERED: 1/2 NS 1000ml IV ONE (13:16)
[2019-05-05] MEDS ORDERED: NS 275ml ONE (13:16)
--- NOTE | 2019-05-05 14:05 | NUR ---
NURSE NOTES: Repositioned patient. Oral care given.
--- NOTE | 2019-05-05 15:00 | Nephrology Progress Note ---
Assessment/Plan Problem List: (1) Acute renal failure (ARF) Assessment: Cr stable (2) Chronic respiratory failure (3) Anemia (4) Sepsis Assessment Acute renal failure Respiratory failure - Trach Low Mag- Low k , Low Na Anemia UTI / Sepsis Proteinuria / HypoAlbuminemia high Trigs Sz decubs bed bound DNR Plan Transfused previously now has JT bolus Albumin as needed K and Mag and Phos supplement as needed Hydrate as needed Urine studies avoid Nephrotoxics mag K Phos supplements as needed monitor renal parameters Subjective ROS Limited/Unobtainable: Yes Objective Objective Last 24 Hour Vital Signs Date Time Temp Pulse Resp B/P (MAP) Pulse Ox O2 Delivery O2 Flow Rate FiO2 05/05/19 13:00 94 22 131/56 (81) 100 05/05/19 12:38 98 T-Piece 5.0 28 05/05/19 12:01 97.8 100 26 146/57 (86) 95 05/05/19 12:00 100 05/05/19 12:00 5.0 28 05/05/19 12:00 T-piece 5.0 T-piece 5.0 T-piece 5.0 T-piece 5.0 05/05/19 11:02 95 29 100 T-Piece 5.0 28 92 24 100 05/05/19 11:00 95 26 137/58 (84) 100 05/05/19 10:00 97 24 154/67 (96) 98 05/05/19 09:00 95 24 133/63 (86) 98 05/05/19 08:00 95 05/05/19 08:00 T-piece 5.0 T-piece 5.0 T-piece 5.0 T-piece 5.0 05/05/19 08:00 98.3 92 23 126/62 (83) 98 05/05/19 08:00 5.0 28 05/05/19 07:03 99 T-Piece 5.0 28 05/05/19 07:00 93 26 99 T-Piece 5.0 28 94 24 96 05/05/19 07:00 94 23 137/68 (91) 96 05/05/19 06:00 91 23 131/61 (84) 98 05/05/19 05:00 96 21 142/70 (94) 100 05/05/19 04:00 5.0 28 05/05/19 04:00 98.4 96 20 99/47 (64) 95 05/05/19 04:00 T-piece 5.0 T-piece 5.0 T-piece 5.0 T-piece 5.0 05/05/19 04:00 99 05/05/19 03:15 98 22 99 T-Piece 5.0 28 05/05/19 03:05 93 24 99 T-Piece 5.0 28 05/05/19 03:00 93 26 125/55 (78) 98 05/05/19 02:00 93 37 123/59 (80) 96 05/05/19 01:00 97.8 94 21 136/36 (69) 98 05/05/19 00:58 99 T-Piece 5.0 28 05/05/19 00:00 86 05/05/19 00:00 5.0 28 05/05/19 00:00 96 25 139/33 (68) 96 05/05/19 00:00 T-piece 5.0 T-piece 5.0 T-piece 5.0 T-piece 5.0 05/04/19 23:27 95 25 100 T-Piece 5.0 28 05/04/19 23:17 94 24 100 T-Piece 5.0 28 05/04/19 23:00 91 22 113/53 (73) 97 05/04/19 22:00 89 22 107/60 (76) 99 05/04/19 21:00 85 21 121/34 (63) 98 05/04/19 20:00 86 05/04/19 20:00 98.4 89 17 133/51 (78) 97 05/04/19 20:00 T-piece 5.0 T-piece 5.0 T-piece 5.0 T-piece 5.0 05/04/19 20:00 5.0 28 05/04/19 19:33 88 21 100 T-Piece 5.0 28 05/04/19 19:23 98 T-Piece 5.0 28 05/04/19 19:23 86 22 98 T-Piece 5.0 28 05/04/19 19:00 89 21 123/43 (69) 98 05/04/19 18:00 84 22 126/28 (60) 100 05/04/19 17:00 84 20 130/33 (65) 99 05/04/19 16:00 98.1 84 20 108/44 (65) 98 05/04/19 16:00 84 05/04/19 16:00 T-piece 5.0 T-piece 5.0 T-piece 5.0 T-piece 5.0 05/04/19 16:00 5.0 28 05/04/19 15:17 84 19 98 T-Piece 5.0 28 82 21 98 05/04/19 15:00 83 21 116/51 (72) 98 Intake and Output 05/04/19 05/05/19 19:00 07:00 Intake Total 2075 ml 2080 ml Output Total 1000 ml 1300 ml Balance 1075 ml 780 ml Free Water 300 ml 300 ml IV Total 605 ml 610 ml Tube Feeding 720 ml 720 ml Other 450 ml 450 ml Output Urine Total 300 ml 400 ml Gastric Drainage Total 700 ml 900 ml # Voids 1 # Bowel Movements 1 1 Laboratory Tests 05/05/19 05:14: Sodium Level 139, Potassium Level 4.2, Chloride Level 101, Carbon Dioxide Level 32, Anion Gap 6, Blood Urea Nitrogen 59H, Creatinine 1.0, Estimat Glomerular Filtration Rate , Glucose Level 104, Calcium Level 9.3, Total Bilirubin 0.2, Aspartate Amino Transf (AST/SGOT) 34, Alanine Aminotransferase (ALT/SGPT) 91H, Alkaline Phosphatase 159H, Total Protein 8.2, Albumin 2.8L, Globulin 5.4, Albumin/Globulin Ratio 0.5L Height (Feet): 5 Height (Inches): 3.00 Weight (Pounds): 132 General Appearance: no apparent distress EENT: other - Trach to O2 Cardiovascular: tachycardia Respiratory/Chest: decreased breath sounds Abdomen: distended Objective no change Eric Cortez MD May 05, 2019 15:00
--- NOTE | 2019-05-05 15:03 | General Progress Note ---
Assessment/Plan Problem List: (1) Seizure ICD Codes: R56.9 - Unspecified convulsions SNOMED: 57042883 (2) Anemia ICD Codes: D64.9 - Anemia, unspecified SNOMED: 702221763 Qualifiers: Qualified Codes: D64.9 - Anemia, unspecified (3) Sepsis ICD Codes: A41.9 - Sepsis, unspecified organism SNOMED: 40701524, 770321406 Qualifiers: Qualified Codes: A41.9 - Sepsis, unspecified organism (4) Respiratory failure with hypoxia ICD Codes: J96.91 - Respiratory failure, unspecified with hypoxia SNOMED: 73757159190361044 Qualifiers: Qualified Codes: J96.21 - Acute and chronic respiratory failure with hypoxia (5) HCAP (healthcare-associated pneumonia) ICD Codes: J18.9 - Pneumonia, unspecified organism SNOMED: 935816762, 229575479 (6) Sacral decubitus ulcer ICD Codes: L89.159 - Pressure ulcer of sacral region, unspecified stage SNOMED: 899246809 (7) HTN (hypertension) ICD Codes: I10 - Essential (primary) hypertension SNOMED: 41292823 (8) Chronic vegetative state ICD Codes: R40.3 - Persistent vegetative state SNOMED: 53767011 (9) Chronic respiratory failure ICD Codes: J96.10 - Chronic respiratory failure, unspecified whether with hypoxia or hypercapnia SNOMED: 99766746 (10) Limited mobility ICD Codes: Z74.09 - Other reduced mobility SNOMED: 9502304 Status: stable, progressing Assessment/Plan: vent as needed resp rx suctioning j tube feeds g port to gravity skin care sz rx monitor wbc and LFTss bowel regime dc planning Subjective ROS Limited/Unobtainable: No Constitutional: Reports: malaise, weakness HEENT: Reports: no symptoms Cardiovascular: Reports: no symptoms Respiratory: Reports: shortness of breath, sputum Gastrointestinal/Abdominal: Reports: difficulty swallowing Genitourinary: Reports: no symptoms Neurologic/Psychiatric: Reports: pre-existing deficit, seizure Endocrine: Reports: no symptoms Hematologic/Lymphatic: Reports: no symptoms Allergies: Coded Allergies: CODEINE (Verified Allergy, Unknown, HIVES, 09/15/09) All Systems: reviewed and negative except above Subjective no events. no reports of bleeding. tolerating feeds, no vomiting. minimal secretions. no szs Objective Last 24 Hour Vital Signs Date Time Temp Pulse Resp B/P (MAP) Pulse Ox O2 Delivery O2 Flow Rate FiO2 05/05/19 13:00 94 22 131/56 (81) 100 05/05/19 12:38 98 T-Piece 5.0 28 05/05/19 12:01 97.8 100 26 146/57 (86) 95 05/05/19 12:00 100 05/05/19 12:00 5.0 28 05/05/19 12:00 T-piece 5.0 T-piece 5.0 T-piece 5.0 T-piece 5.0 05/05/19 11:02 95 29 100 T-Piece 5.0 28 92 24 100 05/05/19 11:00 95 26 137/58 (84) 100 05/05/19 10:00 97 24 154/67 (96) 98 05/05/19 09:00 95 24 133/63 (86) 98 05/05/19 08:00 95 05/05/19 08:00 T-piece 5.0 T-piece 5.0 T-piece 5.0 T-piece 5.0 05/05/19 08:00 98.3 92 23 126/62 (83) 98 05/05/19 08:00 5.0 28 05/05/19 07:03 99 T-Piece 5.0 28 05/05/19 07:00 93 26 99 T-Piece 5.0 28 94 24 96 05/05/19 07:00 94 23 137/68 (91) 96 05/05/19 06:00 91 23 131/61 (84) 98 05/05/19 05:00 96 21 142/70 (94) 100 05/05/19 04:00 5.0 28 05/05/19 04:00 98.4 96 20 99/47 (64) 95 05/05/19 04:00 T-piece 5.0 T-piece 5.0 T-piece 5.0 T-piece 5.0 05/05/19 04:00 99 05/05/19 03:15 98 22 99 T-Piece 5.0 28 05/05/19 03:05 93 24 99 T-Piece 5.0 28 05/05/19 03:00 93 26 125/55 (78) 98 05/05/19 02:00 93 37 123/59 (80) 96 2/4/20 01:00 97.8 94 21 136/36 (69) 98 05/05/19 00:58 99 T-Piece 5.0 28 05/05/19 00:00 86 05/05/19 00:00 5.0 28 05/05/19 00:00 96 25 139/33 (68) 96 05/05/19 00:00 T-piece 5.0 T-piece 5.0 T-piece 5.0 T-piece 5.0 05/04/19 23:27 95 25 100 T-Piece 5.0 28 05/04/19 23:17 94 24 100 T-Piece 5.0 28 05/04/19 23:00 91 22 113/53 (73) 97 05/04/19 22:00 89 22 107/60 (76) 99 05/04/19 21:00 85 21 121/34 (63) 98 05/04/19 20:00 86 05/04/19 20:00 98.4 89 17 133/51 (78) 97 05/04/19 20:00 T-piece 5.0 T-piece 5.0 T-piece 5.0 T-piece 5.0 05/04/19 20:00 5.0 28 05/04/19 19:33 88 21 100 T-Piece 5.0 28 05/04/19 19:23 98 T-Piece 5.0 28 05/04/19 19:23 86 22 98 T-Piece 5.0 28 05/04/19 19:00 89 21 123/43 (69) 98 05/04/19 18:00 84 22 126/28 (60) 100 05/04/19 17:00 84 20 130/33 (65) 99 05/04/19 16:00 98.1 84 20 108/44 (65) 98 05/04/19 16:00 84 05/04/19 16:00 T-piece 5.0 T-piece 5.0 T-piece 5.0 T-piece 5.0 05/04/19 16:00 5.0 28 05/04/19 15:17 84 19 98 T-Piece 5.0 28 82 21 98 Intake and Output 05/04/19 05/05/19 19:00 07:00 Intake Total 2075 ml 2080 ml Output Total 1000 ml 1300 ml Balance 1075 ml 780 ml Free Water 300 ml 300 ml IV Total 605 ml 610 ml Tube Feeding 720 ml 720 ml Other 450 ml 450 ml Output Urine Total 300 ml 400 ml Gastric Drainage Total 700 ml 900 ml # Voids 1 # Bowel Movements 1 1 Laboratory Tests 05/05/19 05:14: Sodium Level 139, Potassium Level 4.2, Chloride Level 101, Carbon Dioxide Level 32, Anion Gap 6, Blood Urea Nitrogen 59H, Creatinine 1.0, Estimat Glomerular Filtration Rate , Glucose Level 104, Calcium Level 9.3, Total Bilirubin 0.2, Aspartate Amino Transf (AST/SGOT) 34, Alanine Aminotransferase (ALT/SGPT) 91H, Alkaline Phosphatase 159H, Total Protein 8.2, Albumin 2.8L, Globulin 5.4, Albumin/Globulin Ratio 0.5L Height (Feet): 5 Height (Inches): 3.00 Weight (Pounds): 132 Objective General Appearance: WD/WN, confused. on trach collar Neck: supple Cardiovascular: normal rate, regular rhythm Respiratory/Chest: chest wall non-tender, rhonchi - bilaterally(minimal) Abdomen: normal bowel sounds, non tender, soft, no organomegaly Edema: no edema noted Arm (L), no edema noted Arm (R), no edema noted Leg (L), no edema noted Leg (R), no edema noted Pedal (L), no edema noted Pedal (R), no edema noted Generalized Neurologic: disoriented, unresponsive, aphasia Irvin Beltrán MD May 05, 2019 15:03
--- NOTE | 2019-05-05 16:05 | NUR ---
NURSE NOTES: Repositioned patient. Oral care given. Kept dry, clean and comfortable.
--- NOTE | 2019-05-05 17:00 | NUR ---
NURSE NOTES:WOUND CARE FOLLOW-UP NOTES:Pt's wound web space of index finger and L thumb resolving.Wound is smaller in size. Base of wound is beefy red and moist with surrounding pink epithelial. (L)1cm x (W)1.5cm.NO odor or exudate noted. Sacrum, R and L ischial wounds have all resolved. Hyperpigmentation with scars noted to aforementioned sites. Bilat foot -drop noted . Both heels and malleoli are clean and easily blanchable. Wound Tx. are effective and continued as ordered.All wound prevention protocols continued as care-planned.
--- NOTE | 2019-05-05 17:32 | General Progress Note ---
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 auto immune hepatitis - Anemia with OB (-) stools - Resp failure, s/p Trach - dysphagia, s/p PEG --> GJ tube - OBS, vegetative obtunded unresponsive state, bedbound with contracted extremities, - h/o minor GJ tube site irritation - poor Prognosis Recommendations - daily sorbitol, and PRN sorbitol - Cristian BID - antibiotic ointment to GJT site PRN - aspiration precautions - elevate HOB - Vital AF 1.2 - check q 6 hour FS - transfuse to keep Hg > 7 - J tube feeds - G tube drain - IVF - check ESR --> elevated - further evaluation for autoimmune hepatitis (AMA, serum IgG, anti DNA, ASMA) Subjective Allergies: Coded Allergies: CODEINE (Verified Allergy, Unknown, HIVES, 09/15/09) Subjective above noted tolerating TF Objective Last 24 Hour Vital Signs Date Time Temp Pulse Resp B/P (MAP) Pulse Ox O2 Delivery O2 Flow Rate FiO2 05/05/19 13:00 94 22 131/56 (81) 100 05/05/19 12:38 98 T-Piece 5.0 28 05/05/19 12:01 97.8 100 26 146/57 (86) 95 05/05/19 12:00 100 05/05/19 12:00 5.0 28 05/05/19 12:00 T-piece 5.0 T-piece 5.0 T-piece 5.0 T-piece 5.0 05/05/19 11:02 95 29 100 T-Piece 5.0 28 92 24 100 05/05/19 11:00 95 26 137/58 (84) 100 05/05/19 10:00 97 24 154/67 (96) 98 05/05/19 09:00 95 24 133/63 (86) 98 05/05/19 08:00 95 05/05/19 08:00 T-piece 5.0 T-piece 5.0 T-piece 5.0 T-piece 5.0 05/05/19 08:00 98.3 92 23 126/62 (83) 98 05/05/19 08:00 5.0 28 05/05/19 07:03 99 T-Piece 5.0 28 05/05/19 07:00 93 26 99 T-Piece 5.0 28 94 24 96 05/05/19 07:00 94 23 137/68 (91) 96 05/05/19 06:00 91 23 131/61 (84) 98 05/05/19 05:00 96 21 142/70 (94) 100 05/05/19 04:00 5.0 28 05/05/19 04:00 98.4 96 20 99/47 (64) 95 05/05/19 04:00 T-piece 5.0 T-piece 5.0 T-piece 5.0 T-piece 5.0 05/05/19 04:00 99 05/05/19 03:15 98 22 99 T-Piece 5.0 28 05/05/19 03:05 93 24 99 T-Piece 5.0 28 05/05/19 03:00 93 26 125/55 (78) 98 05/05/19 02:00 93 37 123/59 (80) 96 05/05/19 01:00 97.8 94 21 136/36 (69) 98 05/05/19 00:58 99 T-Piece 5.0 28 05/05/19 00:00 86 05/05/19 00:00 5.0 28 05/05/19 00:00 96 25 139/33 (68) 96 05/05/19 00:00 T-piece 5.0 T-piece 5.0 T-piece 5.0 T-piece 5.0 05/04/19 23:27 95 25 100 T-Piece 5.0 28 05/04/19 23:17 94 24 100 T-Piece 5.0 28 05/04/19 23:00 91 22 113/53 (73) 97 05/04/19 22:00 89 22 107/60 (76) 99 05/04/19 21:00 85 21 121/34 (63) 98 05/04/19 20:00 86 05/04/19 20:00 98.4 89 17 133/51 (78) 97 05/04/19 20:00 T-piece 5.0 T-piece 5.0 T-piece 5.0 T-piece 5.0 05/04/19 20:00 5.0 28 05/04/19 19:33 88 21 100 T-Piece 5.0 28 05/04/19 19:23 98 T-Piece 5.0 28 05/04/19 19:23 86 22 98 T-Piece 5.0 28 05/04/19 19:00 89 21 123/43 (69) 98 05/04/19 18:00 84 22 126/28 (60) 100 Intake and Output 05/04/19 05/05/19 19:00 07:00 Intake Total 2075 ml 2130 ml Output Total 1000 ml 1300 ml Balance 1075 ml 830 ml Free Water 300 ml 300 ml IV Total 605 ml 660 ml Tube Feeding 720 ml 720 ml Other 450 ml 450 ml Output Urine Total 300 ml 400 ml Gastric Drainage Total 700 ml 900 ml # Voids 1 # Bowel Movements 1 1 Laboratory Tests 05/05/19 05:14: Sodium Level 139, Potassium Level 4.2, Chloride Level 101, Carbon Dioxide Level 32, Anion Gap 6, Blood Urea Nitrogen 59H, Creatinine 1.0, Estimat Glomerular Filtration Rate , Glucose Level 104, Calcium Level 9.3, Total Bilirubin 0.2, Aspartate Amino Transf (AST/SGOT) 34, Alanine Aminotransferase (ALT/SGPT) 91H, Alkaline Phosphatase 159H, Total Protein 8.2, Albumin 2.8L, Globulin 5.4, Albumin/Globulin Ratio 0.5L Height (Feet): 5 Height (Inches): 3.00 Weight (Pounds): 132 Objective Debilitated AA woman non-verbal, obtunded NCAT (+) trach coarse BS RR obese abd, (+) GJT no edema (+) contractured extremities Celio Vaughan MD May 05, 2019 17:32
--- NOTE | 2019-05-05 18:02 | NUR ---
NURSE NOTES: Bed bath given.
--- NOTE | 2019-05-05 19:16 | NUR ---
NURSE NOTES: received report from hussein rn pt nonverbal open eyes touch no tracking upper extremities contracted lower extremities stiff no movement tolerating tube feeding no residual [id number] o2 sat 98 o/o no acute resp distress reposition and suction iv infusing rt ua picc dressing dry and intact
--- NOTE | 2019-05-05 19:17 | NUR ---
HAND-OFF: Report given to JEANNINE Armstrong. Endorsed plan of care.
--- NOTE | 2019-05-05 19:26 | NUR ---
RESPIRATORY NOTE: Received pt on 28% Cool Aerosol via T-Piece. Pt is trach-dependent w/ a cuffed, Shiley 6 XLT tube. Cuff is currently deflated. Pt asleep/flat effect, responds to stimuli. B/S flory. rhonchi, sxn small to moderate amounts of thin/frothy, white to pale-yellow secretions. [place] at bedside. Pt resting comfortably, in no apparent distress at this time. Will continue to monitor pt.
[2019-05-05] MEDS: Dyna-Hex 2% Top Sol 2oz TOPIC SCH (20:21)
--- NOTE | 2019-05-05 22:00 | NUR ---
NURSE NOTES: reposition and suction no acute resp distress noted
[2019-05-06] VITALS (24 sets, daily range): BP systolic 102–153; BP diastolic 19–64
--- NOTE | 2019-05-06 | NUR ---
NURSE NOTES: condition unchange
--- NOTE | 2019-05-06 02:00 | NUR ---
reposition and tolerating tube feeding
[2019-05-06] MEDS: Albuterol/Ipratropium 3ml neb HHN SCH ×6 (03:03→23:08)
--- NOTE | 2019-05-06 04:00 | NUR ---
NURSE NOTES: complete bed bath oral care and wound care done reposition and suction
--- NOTE | 2019-05-06 06:00 | NUR ---
NURSE NOTES: condition un change reposition and suction
--- NOTE | 2019-05-06 07:27 | NUR ---
HAND-OFF: Report given to nichole mann using sbar.
--- NOTE | 2019-05-06 07:28 | NUR ---
NURSE NOTES: Late entry: PT and report received from JEANNINE Ford; PT received sleeping, responsive to pain, search director shows SR, HR86; PT remains on T-piece shiley 6 xlt @ 28% saturating at 99%; no S/S of respiratory distress noted. PT has purewick to wall suction intact patent, on p200 mattress; PT has JT infusing vital af @ 60cc/hr @ goal with Q4H flush 150cc/hr; GT flush 100cc/hr Q4H meds only. JOSY-PICC is infusing 1/2NS @ 50cc/hr; side rails are padded for seizure precaution, bed is at lowest position bed alarm on, will continue to monitor PT.
--- NOTE | 2019-05-06 08:01 | General Progress Note ---
Assessment/Plan Problem List: (1) Seizure ICD Codes: R56.9 - Unspecified convulsions SNOMED: 00163814 (2) Anemia ICD Codes: D64.9 - Anemia, unspecified SNOMED: 789873785 Qualifiers: Qualified Codes: D64.9 - Anemia, unspecified (3) Sepsis ICD Codes: A41.9 - Sepsis, unspecified organism SNOMED: 63531711, 128607963 Qualifiers: Qualified Codes: A41.9 - Sepsis, unspecified organism (4) Respiratory failure with hypoxia ICD Codes: J96.91 - Respiratory failure, unspecified with hypoxia SNOMED: 64969736692136230 Qualifiers: Qualified Codes: J96.21 - Acute and chronic respiratory failure with hypoxia (5) HCAP (healthcare-associated pneumonia) ICD Codes: J18.9 - Pneumonia, unspecified organism SNOMED: 484174569, 683885566 (6) Sacral decubitus ulcer ICD Codes: L89.159 - Pressure ulcer of sacral region, unspecified stage SNOMED: 531585000 (7) HTN (hypertension) ICD Codes: I10 - Essential (primary) hypertension SNOMED: 68782234 (8) Chronic vegetative state ICD Codes: R40.3 - Persistent vegetative state SNOMED: 40286211 (9) Chronic respiratory failure ICD Codes: J96.10 - Chronic respiratory failure, unspecified whether with hypoxia or hypercapnia SNOMED: 53588603 (10) Limited mobility ICD Codes: Z74.09 - Other reduced mobility SNOMED: 2066328 Status: stable, progressing Assessment/Plan: vent as needed resp rx suctioning j tube feeds g port to gravity skin care sz rx monitor wbc and LFTss bowel regime dc planning Subjective ROS Limited/Unobtainable: No Constitutional: Reports: malaise, weakness HEENT: Reports: no symptoms Cardiovascular: Reports: no symptoms Respiratory: Reports: cough, sputum Gastrointestinal/Abdominal: Reports: no symptoms Genitourinary: Reports: no symptoms Neurologic/Psychiatric: Reports: pre-existing deficit, seizure Endocrine: Reports: no symptoms Hematologic/Lymphatic: Reports: no symptoms Allergies: Coded Allergies: CODEINE (Verified Allergy, Unknown, HIVES, 09/15/09) All Systems: reviewed and negative except above Subjective no events. no reports of bleeding. tolerating feeds, no vomiting. minimal secretions. no szs Objective Last 24 Hour Vital Signs Date Time Temp Pulse Resp B/P (MAP) Pulse Ox O2 Delivery O2 Flow Rate FiO2 05/06/19 07:16 90 26 100 T-Piece 5.0 28 92 22 100 05/06/19 07:16 100 T-Piece 5.0 28 05/06/19 07:00 85 21 118/49 (72) 100 05/06/19 06:00 88 21 136/57 (83) 100 05/06/19 05:00 93 22 131/46 (74) 96 05/06/19 04:00 112 05/06/19 04:00 T-piece 5.0 T-piece 5.0 T-piece 5.0 T-piece 5.0 05/06/19 04:00 98.5 94 23 136/36 (69) 98 05/06/19 04:00 5.0 28 05/06/19 03:14 101 23 100 T-Piece 5.0 28 05/06/19 03:03 97 24 98 T-Piece 5.0 28 05/06/19 03:00 90 24 133/37 (69) 97 05/06/19 02:00 91 25 143/34 (70) 98 05/06/19 01:14 100 T-Piece 5.0 28 05/06/19 01:00 93 23 140/42 (74) 100 05/06/19 00:00 T-piece 5.0 T-piece 5.0 T-piece 5.0 T-piece 5.0 05/06/19 00:00 98.3 95 24 151/48 (82) 100 05/06/19 00:00 93 05/06/19 00:00 5.0 28 05/05/19 23:40 98 27 100 T-Piece 5.0 28 05/05/19 23:30 94 24 100 T-Piece 5.0 28 05/05/19 23:00 93 23 130/30 (63) 99 05/05/19 22:00 102 25 164/42 (82) 97 05/05/19 21:00 94 23 106/48 (67) 97 05/05/19 20:00 94 05/05/19 20:00 T-piece 5.0 T-piece 5.0 T-piece 5.0 T-piece 5.0 05/05/19 20:00 5.0 28 05/05/19 20:00 98.0 91 23 120/26 (57) 98 05/05/19 19:33 97 21 99 T-Piece 5.0 28 05/05/19 19:23 98 T-Piece 5.0 28 05/05/19 19:23 97 24 98 T-Piece 5.0 28 05/05/19 19:00 93 23 111/52 (71) 97 05/05/19 18:00 99 27 133/61 (85) 98 05/05/19 17:00 92 23 127/26 (59) 98 05/05/19 16:00 97.5 90 23 125/53 (77) 97 05/05/19 16:00 92 05/05/19 16:00 T-piece 5.0 T-piece 5.0 T-piece 5.0 T-piece 5.0 05/05/19 16:00 5.0 28 05/05/19 15:00 91 22 111/48 (69) 97 05/05/19 14:00 91 22 133/56 (81) 98 05/05/19 13:00 94 22 131/56 (81) 100 05/05/19 12:38 98 T-Piece 5.0 28 05/05/19 12:01 97.8 100 26 146/57 (86) 95 05/05/19 12:00 100 05/05/19 12:00 5.0 28 05/05/19 12:00 T-piece 5.0 T-piece 5.0 T-piece 5.0 T-piece 5.0 05/05/19 11:02 95 29 100 T-Piece 5.0 28 92 24 100 05/05/19 11:00 95 26 137/58 (84) 100 05/05/19 10:00 97 24 154/67 (96) 98 05/05/19 09:00 95 24 133/63 (86) 98 Intake and Output 05/05/19 05/06/19 19:00 07:00 Intake Total 2075 ml 1970 ml Output Total 950 ml 1300 ml Balance 1125 ml 670 ml Free Water 300 ml 300 ml IV Total 605 ml 500 ml Tube Feeding 720 ml 720 ml Other 450 ml 450 ml Output Urine Total 500 ml 600 ml Gastric Drainage Total 450 ml 700 ml # Bowel Movements 1 Height (Feet): 5 Height (Inches): 3.00 Weight (Pounds): 132 Objective General Appearance: WD/WN, confused. on trach collar Neck: supple Cardiovascular: normal rate, regular rhythm Respiratory/Chest: chest wall non-tender, rhonchi - bilaterally(minimal) Abdomen: normal bowel sounds, non tender, soft, no organomegaly Edema: no edema noted Arm (L), no edema noted Arm (R), no edema noted Leg (L), no edema noted Leg (R), no edema noted Pedal (L), no edema noted Pedal (R), no edema noted Generalized Neurologic: disoriented, unresponsive, aphasia Irvin Beltrán MD May 06, 2019 08:01
[2019-05-06] MEDS: levETIRAcetam 500mg/5ml Liquid GT SCH ×2 (08:50→20:06)
[2019-05-06] MEDS: Sorbitol Solution UD 30ml GT SCH (08:50)
[2019-05-06] MEDS: Cefepime HCl 2 GM in D5W 55 ML IVPB SCH (08:51)
[2019-05-06] MEDS: Heparin 5000 units/ml inj SUBQ SCH ×2 (08:53→20:08)
--- NOTE | 2019-05-06 09:19 | NUR ---
RADIOLOGY DEPT., CHEST X-RAY DONE.-P.DYE
[2019-05-06] MEDS ORDERED: Tubing IV Secondary IV ONE (10:20)
[2019-05-06] MEDS ORDERED: 1/2 NS 1000ml IV ONE (10:20)
--- NOTE | 2019-05-06 10:51 | Nephrology Progress Note ---
Assessment/Plan Problem List: (1) Acute renal failure (ARF) Assessment: Cr stable (2) Chronic respiratory failure (3) Anemia (4) Sepsis Assessment Acute renal failure Respiratory failure - Trach Low Mag- Low k , Low Na Anemia UTI / Sepsis Proteinuria / HypoAlbuminemia high Trigs Sz decubs bed bound DNR Plan Transfused previously now has JT bolus Albumin as needed K and Mag and Phos supplement as needed Hydrate as needed Urine studies avoid Nephrotoxics mag K Phos supplements as needed monitor renal parameters Subjective ROS Limited/Unobtainable: Yes Objective Objective Last 24 Hour Vital Signs Date Time Temp Pulse Resp B/P (MAP) Pulse Ox O2 Delivery O2 Flow Rate FiO2 05/06/19 10:00 97 23 106/52 (70) 96 05/06/19 09:00 93 26 135/59 (84) 95 05/06/19 08:00 96 05/06/19 08:00 5.0 28 05/06/19 08:00 98.8 91 22 122/52 (75) 96 05/06/19 08:00 T-piece 5.0 T-piece 5.0 T-piece 5.0 T-piece 5.0 05/06/19 07:16 90 26 100 T-Piece 5.0 28 92 22 100 05/06/19 07:16 100 T-Piece 5.0 28 05/06/19 07:00 85 21 118/49 (72) 100 05/06/19 06:00 88 21 136/57 (83) 100 05/06/19 05:00 93 22 131/46 (74) 96 05/06/19 04:00 112 05/06/19 04:00 T-piece 5.0 T-piece 5.0 T-piece 5.0 T-piece 5.0 05/06/19 04:00 98.5 94 23 136/36 (69) 98 05/06/19 04:00 5.0 28 05/06/19 03:14 101 23 100 T-Piece 5.0 28 05/06/19 03:03 97 24 98 T-Piece 5.0 28 05/06/19 03:00 90 24 133/37 (69) 97 05/06/19 02:00 91 25 143/34 (70) 98 05/06/19 01:14 100 T-Piece 5.0 28 05/06/19 01:00 93 23 140/42 (74) 100 05/06/19 00:00 T-piece 5.0 T-piece 5.0 T-piece 5.0 T-piece 5.0 05/06/19 00:00 98.3 95 24 151/48 (82) 100 05/06/19 00:00 93 05/06/19 00:00 5.0 28 05/05/19 23:40 98 27 100 T-Piece 5.0 28 05/05/19 23:30 94 24 100 T-Piece 5.0 28 05/05/19 23:00 93 23 130/30 (63) 99 05/05/19 22:00 102 25 164/42 (82) 97 05/05/19 21:00 94 23 106/48 (67) 97 05/05/19 20:00 94 05/05/19 20:00 T-piece 5.0 T-piece 5.0 T-piece 5.0 T-piece 5.0 05/05/19 20:00 5.0 28 05/05/19 20:00 98.0 91 23 120/26 (57) 98 05/05/19 19:33 97 21 99 T-Piece 5.0 28 05/05/19 19:23 98 T-Piece 5.0 28 05/05/19 19:23 97 24 98 T-Piece 5.0 28 05/05/19 19:00 93 23 111/52 (71) 97 05/05/19 18:00 99 27 133/61 (85) 98 05/05/19 17:00 92 23 127/26 (59) 98 05/05/19 16:00 97.5 90 23 125/53 (77) 97 05/05/19 16:00 92 05/05/19 16:00 T-piece 5.0 T-piece 5.0 T-piece 5.0 T-piece 5.0 05/05/19 16:00 5.0 28 05/05/19 15:00 91 22 111/48 (69) 97 05/05/19 14:00 91 22 133/56 (81) 98 05/05/19 13:00 94 22 131/56 (81) 100 05/05/19 12:38 98 T-Piece 5.0 28 05/05/19 12:01 97.8 100 26 146/57 (86) 95 05/05/19 12:00 100 05/05/19 12:00 5.0 28 05/05/19 12:00 T-piece 5.0 T-piece 5.0 T-piece 5.0 T-piece 5.0 05/05/19 11:02 95 29 100 T-Piece 5.0 28 92 24 100 05/05/19 11:00 95 26 137/58 (84) 100 Intake and Output 05/05/19 05/06/19 19:00 07:00 Intake Total 2075 ml 1970 ml Output Total 950 ml 1300 ml Balance 1125 ml 670 ml Free Water 300 ml 300 ml IV Total 605 ml 500 ml Tube Feeding 720 ml 720 ml Other 450 ml 450 ml Output Urine Total 500 ml 600 ml Gastric Drainage Total 450 ml 700 ml # Bowel Movements 1 Height (Feet): 5 Height (Inches): 3.00 Weight (Pounds): 132 General Appearance: no apparent distress EENT: other - trach to O2 Cardiovascular: tachycardia Respiratory/Chest: decreased breath sounds Abdomen: soft Objective no change Eric Cortez MD May 06, 2019 10:51
--- NOTE | 2019-05-06 11:16 | NUR ---
NURSE NOTES: Profuse white frothy sputum noted oral and from trach, suctioning given, will continue to monitor PT.
--- NOTE | 2019-05-06 12:04 | Infectious Diseases Prog Note ---
Assessment/Plan Assessment/Plan A 1. Citrobacter pneumonia 2. respiratory failure 3. hypertension 4. CVA 5. dementia 6. sacral decubitus ulcer 7. rectal VRE colonization 8. Anemia 9. Proteus UTI 10. Acute renal failure 11. Leukocytosis resolved P 1 Continue Cefepime X 4 days 2. Frequent suctioning 3. Remove PICC line before discharge 4. f/u CXR Subjective ROS Limited/Unobtainable: Yes Constitutional: Denies: fever Respiratory: Reports: other - has incresed respiratory secretions Allergies: Coded Allergies: CODEINE (Verified Allergy, Unknown, HIVES, 09/15/09) Objective Vital Signs Last 24 Hour Vital Signs Date Time Temp Pulse Resp B/P (MAP) Pulse Ox O2 Delivery O2 Flow Rate FiO2 05/06/19 11:00 97 24 130/57 (81) 98 05/06/19 10:00 97 23 106/52 (70) 96 05/06/19 09:00 93 26 135/59 (84) 95 05/06/19 08:00 96 05/06/19 08:00 5.0 28 05/06/19 08:00 98.8 91 22 122/52 (75) 96 05/06/19 08:00 T-piece 5.0 T-piece 5.0 T-piece 5.0 T-piece 5.0 05/06/19 07:16 90 26 100 T-Piece 5.0 28 92 22 100 05/06/19 07:16 100 T-Piece 5.0 28 05/06/19 07:00 85 21 118/49 (72) 100 05/06/19 06:00 88 21 136/57 (83) 100 05/06/19 05:00 93 22 131/46 (74) 96 05/06/19 04:00 112 05/06/19 04:00 T-piece 5.0 T-piece 5.0 T-piece 5.0 T-piece 5.0 05/06/19 04:00 98.5 94 23 136/36 (69) 98 05/06/19 04:00 5.0 28 05/06/19 03:14 101 23 100 T-Piece 5.0 28 05/06/19 03:03 97 24 98 T-Piece 5.0 28 05/06/19 03:00 90 24 133/37 (69) 97 05/06/19 02:00 91 25 143/34 (70) 98 05/06/19 01:14 100 T-Piece 5.0 28 05/06/19 01:00 93 23 140/42 (74) 100 05/06/19 00:00 T-piece 5.0 T-piece 5.0 T-piece 5.0 T-piece 5.0 05/06/19 00:00 98.3 95 24 151/48 (82) 100 05/06/19 00:00 93 05/06/19 00:00 5.0 28 05/05/19 23:40 98 27 100 T-Piece 5.0 28 05/05/19 23:30 94 24 100 T-Piece 5.0 28 05/05/19 23:00 93 23 130/30 (63) 99 05/05/19 22:00 102 25 164/42 (82) 97 05/05/19 21:00 94 23 106/48 (67) 97 05/05/19 20:00 94 05/05/19 20:00 T-piece 5.0 T-piece 5.0 T-piece 5.0 T-piece 5.0 05/05/19 20:00 5.0 28 05/05/19 20:00 98.0 91 23 120/26 (57) 98 05/05/19 19:33 97 21 99 T-Piece 5.0 28 05/05/19 19:23 98 T-Piece 5.0 28 05/05/19 19:23 97 24 98 T-Piece 5.0 28 05/05/19 19:00 93 23 111/52 (71) 97 05/05/19 18:00 99 27 133/61 (85) 98 05/05/19 17:00 92 23 127/26 (59) 98 05/05/19 16:00 97.5 90 23 125/53 (77) 97 05/05/19 16:00 92 05/05/19 16:00 T-piece 5.0 T-piece 5.0 T-piece 5.0 T-piece 5.0 05/05/19 16:00 5.0 28 05/05/19 15:00 91 22 111/48 (69) 97 05/05/19 14:00 91 22 133/56 (81) 98 05/05/19 13:00 94 22 131/56 (81) 100 05/05/19 12:38 98 T-Piece 5.0 28 Height (Feet): 5 Height (Inches): 3.00 Weight (Pounds): 132 General Appearance: no acute distress HEENT: mucous membranes moist, status post trach Respiratory/Chest: lungs clear, other - on T bar Cardiovascular: normal rate, other - PICC line Abdomen: soft, non tender, other - J tube Extremities: no edema Neurologic/Psychiatric: unresponsiveness, aphasia Current Medications Medications (Trade) Dose Ordered Sig/Maicol Route PRN Reason Start Time Stop Time Status Last Admin Dose Admin Albuterol/ Ipratropium (Albuterol/ Ipratropium) 3 ml Q4HRT HHN 05/05/19 19:00 05/10/19 18:59 05/06/19 07:16 Atropine Sulfate (Atropine Opth Adriana) 1 drop THREE TIMES A DAY SL 04/08/19 09:00 05/07/19 20:59 05/06/19 08:52 Cefepime HCl 2 gm/ Dextrose 55 ml @ 110 mls/hr DAILY IVPB 05/04/19 10:00 05/11/19 09:59 05/06/19 08:51 Chlorhexidine Gluconate (Cesilia-Hex 2%) 1 applic DAILY@2000 TOPIC 04/12/19 20:00 05/12/19 19:59 05/05/19 20:21 Heparin Sodium (Porcine) (Heparin 5000 units/ml) 5,000 units EVERY 12 HOURS SUBQ 05/01/19 21:00 05/31/19 20:59 05/06/19 08:53 Levetiracetam (Keppra) 500 mg Q12HR GT 05/01/19 21:00 05/28/19 08:59 05/06/19 08:50 Sodium Chloride 1,000 ml @ 50 mls/hr Q20H IV 05/02/19 17:15 06/01/19 17:14 05/06/19 02:37 Sorbitol (Sorbitol) 30 ml BIDPRN PRN ORAL Constipation 04/13/19 11:15 05/13/19 11:14 Sorbitol (sorbitoL) 30 ml DAILY GT 04/14/19 09:00 05/14/19 08:59 05/06/19 08:50 Chauncey Liriano MD May 06, 2019 12:04
--- NOTE | 2019-05-06 14:41 | Diagnostic Imaging Report ---
Indication: Dyspnea Comparison: 05/01/2019 A single view chest radiograph was obtained. Findings: Interstitial and pulmonary vascularity are prominent. Heart is enlarged. Tracheostomy noted. Exam limited by rotation and low lung volumes. IMPRESSION: Suspicion of CHF increased from the last occasion
--- NOTE | 2019-05-06 15:23 | Surgery Progress Note ---
Surgery Progress Note Subjective Symptoms: improved Objective Last 24 Hour Vital Signs Date Time Temp Pulse Resp B/P (MAP) Pulse Ox O2 Delivery O2 Flow Rate FiO2 05/06/19 15:00 98 22 153/58 (89) 100 05/06/19 14:00 93 23 143/60 (87) 98 05/06/19 13:00 93 22 102/52 (69) 95 05/06/19 12:00 T-piece 5.0 T-piece 5.0 T-piece 5.0 T-piece 5.0 05/06/19 12:00 97.5 95 23 143/57 (85) 99 05/06/19 12:00 97 05/06/19 12:00 5.0 28 05/06/19 11:59 91 22 100 T-Piece 5.0 28 90 20 100 05/06/19 11:00 97 24 130/57 (81) 98 05/06/19 10:00 97 23 106/52 (70) 96 05/06/19 09:00 93 26 135/59 (84) 95 05/06/19 08:00 96 05/06/19 08:00 5.0 28 05/06/19 08:00 98.8 91 22 122/52 (75) 96 05/06/19 08:00 T-piece 5.0 T-piece 5.0 T-piece 5.0 T-piece 5.0 05/06/19 07:16 90 26 100 T-Piece 5.0 28 92 22 100 05/06/19 07:16 100 T-Piece 5.0 28 05/06/19 07:00 85 21 118/49 (72) 100 05/06/19 06:00 88 21 136/57 (83) 100 05/06/19 05:00 93 22 131/46 (74) 96 05/06/19 04:00 112 05/06/19 04:00 T-piece 5.0 T-piece 5.0 T-piece 5.0 T-piece 5.0 05/06/19 04:00 98.5 94 23 136/36 (69) 98 05/06/19 04:00 5.0 28 05/06/19 03:14 101 23 100 T-Piece 5.0 28 05/06/19 03:03 97 24 98 T-Piece 5.0 28 05/06/19 03:00 90 24 133/37 (69) 97 05/06/19 02:00 91 25 143/34 (70) 98 05/06/19 01:14 100 T-Piece 5.0 28 05/06/19 01:00 93 23 140/42 (74) 100 05/06/19 00:00 T-piece 5.0 T-piece 5.0 T-piece 5.0 T-piece 5.0 05/06/19 00:00 98.3 95 24 151/48 (82) 100 05/06/19 00:00 93 05/06/19 00:00 5.0 28 05/05/19 23:40 98 27 100 T-Piece 5.0 28 05/05/19 23:30 94 24 100 T-Piece 5.0 28 05/05/19 23:00 93 23 130/30 (63) 99 05/05/19 22:00 102 25 164/42 (82) 97 05/05/19 21:00 94 23 106/48 (67) 97 05/05/19 20:00 94 05/05/19 20:00 T-piece 5.0 T-piece 5.0 T-piece 5.0 T-piece 5.0 05/05/19 20:00 5.0 28 05/05/19 20:00 98.0 91 23 120/26 (57) 98 05/05/19 19:33 97 21 99 T-Piece 5.0 28 05/05/19 19:23 98 T-Piece 5.0 28 05/05/19 19:23 97 24 98 T-Piece 5.0 28 05/05/19 19:00 93 23 111/52 (71) 97 05/05/19 18:00 99 27 133/61 (85) 98 05/05/19 17:00 92 23 127/26 (59) 98 05/05/19 16:00 97.5 90 23 125/53 (77) 97 05/05/19 16:00 92 05/05/19 16:00 T-piece 5.0 T-piece 5.0 T-piece 5.0 T-piece 5.0 05/05/19 16:00 5.0 28 I&O Intake and Output 05/05/19 05/06/19 18:59 06:59 Intake Total 2075 ml 2020 ml Output Total 950 ml 1050 ml Balance 1125 ml 970 ml Free Water 300 ml 300 ml IV Total 605 ml 550 ml Tube Feeding 720 ml 720 ml Other 450 ml 450 ml Output Urine Total 500 ml 600 ml Gastric Drainage Total 450 ml 450 ml # Bowel Movements 1 Dressing: other Wound: other Drains: other Cardiovascular: RSR, other Respiratory: decreased breath sounds Abdomen: soft, present bowel sounds Extremities: no cyanosis Plan Problems: (1) Sacral decubitus ulcer Assessment & Plan: This is a 83-year-old female with multiple medical committees that is currently admitted for medical care and management and identified to have multiple wounds requiring care. On admission patient noted to have a resolved sacral decubitus ulcer. Has had prior care and is well-healed at this time. Will ensure it does not open up again. Patient has a right ischial decubitus ulcer that is resolved. Scar intact and well formed. Will monitor to ensure it does not open up again. Patient has a left ischial decubitus ulcer that can be identified to be stage IV with palpable bone that has been resolving as noted by the periwound tissue and scar but open area approximately 1 cm x 1.5 cm few millimeters deep to bone identified. Unsure if this is been to be completely healed prior and has since opened or if has been healing at this level. No foul odor no drainage was unsure local wound care until healed Bilateral heels soft without signs of injury Resolving pressure injury L ischium(L)1.8cm x (W)1cm.Scattered biofilm at base of wound. Edges flat and adherent with surrounding hyperpigmentation. No odor or exudate noted. Sacrum is pale pink with surrounding hyperpigmentation. Hyperpigmentation R ischium with small sheared area centrally.No areas of erythema or exudate noted. Both heels are soft but blanchable. Skin Assessed under collar of trach and no evidence of skin breakdown noted. All wound Tx. are effective and continued as ordered. Pt ahs an APM/Belén mattress overlay and is being repositioned per protocols and per tolerance.No new skin concerns noted. Full thickness pressure injury L Ischium with small amt biofilm (L)1.8cm x (W) 1cm. Surrounding pink hyperpigmentation. No odor or exudate noted. [place] hyperpigmentation from previous wound noted to sacrum. Pt also noted to have Cat 2 Skin Tear dorsal L hand, L 5th metatarsal extending into palm of hand. 80% skin flap in situ.Both heels are dry firm and blanchable. No other skin concerns noted. R ischial wound has resolved. [place] epithelial with surrounding hyperpigmentation. from historical wound. Full thickness pressure injury L ischium. [place] granulation at base of wound. Borders are macerated with Surrounding hyperpigmentation.Small amt non-odorous serous exudate noted.(L)0.7cm x (W)0.8cm. Skin hyperpigmentation from historical wound noted to Sacrum. Small sheared area noted to sacrococcygeal area.(L)0.4cm x (W)0.3cm.Small amt sanguineous exudate noted. Reabsorbed blister with semi-detached dry necrotic cap noted to web space of L thumb and L index fingers extending into palm of L hand. No odor or exudate noted. Skin assessed under tracheal collar and no erythema or evidence of Skin Breakdown noted. NO new skin concerns noted . Good hand hygiene provided to both hands. R hand contracted and fisted. Fingernails trimmed. Wound care provided along with Primary nurse. Wound Tx continued as ordered. New order obtained from to apply Betadine to wound L hand Daily. Tx done as ordered. L hand wrapped with kerlix weaving kerlix between fingers to separate fingers. Moisture Barrier applied to sacrum ,R ischium. Each site covered with Optifoam drsg. Both lower ext washed and moisturized. [place] Skin Barrier applied to both heels.Each heel covered with Optifoam drsgs. Pt positioned with pillows and both heels off-loaded with pillow. Pt wounds are resolving. Loose necrotic cap within web space of L index finger and L thumb easily removed with gentle friction. Base of wound is hypergranular with 10% necrosis. Borders are macerated. Application of Silver Nitrate to hypergranular base done. [place] Skin Barrier applied to borders . Good hand hygiene provided. Wound covered with Abd pad. L hand wrapped with Kerlix weaving Kerlix between digitsof L hand. Pressure injury L ischium resolving. Base iof wound is pale pink and dry with surrounding hyperpigmentation and scar from previous wound. Hyperpigmentation with historical scars noted to Sacrum and R ischium. Both heels are soft and blanchable. Skin Assessed under trach collar and no evidence of skin breakdown noted. Tx.Plan: Apply Betadine to wound L hand. Cover with Gauze and wrap with Kerlix Daily and prn. Cleanse L ischial wound with Saline. Apply Therahoney. Apply Moisture Barrier periwound. Cover with Optifoam drsgevery 3 days and prn. Apply Moisture Barrier Paste to R ischium and Sacrum. Cover each area with Optifoam drsg. Change every 3 days and prn. Apply Cav[place] Skin Barrier to both heels. Cover each heel with Optifoam drsg. Change every 7 days and prn. Cleanse Blister Dorsal and palm of L hand with saline. Versatel One Silicone Contact Layer(Applied). Apply Silvasorb Gel. Wrap with Kerlix Gauze.Change every 7 days and prn. Apply Moisture Barrier to sacrum. Cover with Optifoam drsg. Change every 3 days and prn. APM/BELÉN Mattress overlay. Reposition at least every 2hours or as tolerated. Off-load heels with pillow. Nutritional optimization We will monitor follow with recommendations cont with above upon d/c wounds healing overall improving left hand wound almost resolved. 80% healed (2) Sepsis Assessment & Plan: IV abx as per ID trend labs improving wounds unlikely etiology likely respiratory imaging noted and okay abnormal lft's stable PICC on Abx in ICU for desaturation CXR with consolidation cont with frequent suctioning d/c planning g j via GI daughter wants close attention to wounds and management to ensure healing Evidence of left lower lobe pneumonia, also previously demonstrated Gastrostomy in good position Mild diastasis of the rectus abdominis musculature again demonstrated Retrosacral decubitus changes, better depicted on prior exam which included the pelvis Small hiatal hernia with evidence of trace gastroesophageal reflux Discussed with GI. Recommend GJ family still pending decision transfuse prbc prn monitor h/h monitor bm LFTs improving trending down Findings: Previously demonstrated gastrostomy tube has been converted to a gastrojejunostomy. Gastrostomy balloon is in good position. The shaft of the jejunostomy portion coils in the upper gastric fundus, and the tip is in the proximal jejunum just beyond the ligament of Treitz. The distal esophagus is unremarkable. Contrast is seen within the colon. The visualized bowel demonstrates no significant distention. There is diastasis of the rectus abdominis tendon again demonstrated. The appendix is visualized, normal. The liver, gallbladder, bile ducts, pancreas, spleen, adrenals, right kidney are unremarkable. The left kidney demonstrates a large interpolar region cyst. No retroperitoneal or mesenteric mass or adenopathy. The included lung bases demonstrate groundglass opacities, right greater than left, and areas of scarring or atelectasis on the left. Previously demonstrated left lower lobe dense consolidation has improved The bones demonstrate a very slight superior endplate compression fracture deformity of the L3 vertebral body, also evident previously. Previously reported retrosacral decubitus changes are not included in the current imaging volume Impression: Interim conversion of gastrostomy to gastrojejunostomy, jejunostomy tube tip at the origin of the jejunum, just beyond the ligament of [place]itz No acute abdominal abnormality Mild bilateral basilar pulmonary parenchymal groundglass opacities, right greater than left, nonspecific, could indicate atelectasis, edema, or inflammation. May also be in part due to motion artifact. There are also atelectatic changes or scarring on the left L3 vertebral body mild superior endplate compression fracture deformity, also demonstrated on prior January 2019 exam and therefore not acute. Incidental findings as noted, including rectus abdominis tendon diastasis, large left renal cyst (3) Feeding by G-tube Assessment & Plan: DAILY ESTIMATED NEEDS: Needs based on Pulmonary, wounds, bedbound/ 61kg adj 25-30 kcals/kg 4377-2508 total kcals 1.25-2 g protein/kg 76-122 g total protein 25-30 mL/kg 8668-3635 total fluid mLs NUTRITION DIAGNOSIS: * Increased kcal/prot needs R/T wound healing as evidenced by BL buttocks and sacral wound photos, refer to WC eval. * Swallowing difficulty R/T respiratory status as evidenced by pt on T-collar, s/p G-J conversion CURRENT TF:Glucerna 1.5 @ 50ml/hr x 24 hrs ENTERAL NUTRITION RECOMMENDATIONS: Glucerna 1.5 @ 50ml/hr x 24 hrs to provide 1200ml, 1800 kcal, 99g pro, 911ml free H2O - Maintain at current rate as tolerated to meet 100% est needs - HOB over 30 degrees - INCREASE water flush of 170ml q 6 hrs ADDITIONAL RECOMMENDATIONS: 1) RE-calibrate bedscale wt: fluctuating daily wts (108#-136# last 6 days) 2) Wound healing: Add Cristian 1pkt BID w/ continued good TF tolerance. 3) Increase water flushes, monitor for signs of water deficits 4) Monitor BGs closely, need for NISS -> now w/ improved BGs 5) Monitor for continued good TF tolerance 6) Monitor K : elev K on 03/25, s/p Kdur BID, now dc'ed. (4) Chronic vegetative state Assessment & Plan: incontinence of urine and stool. can soil dressings. nurses doing great job with monitoring and changing prn (5) Leukocytosis Walter Madera May 06, 2019 15:23
--- NOTE | 2019-05-06 16:58 | NUR ---
NURSE NOTES: Profound amount of frothy white secretion orally and from trach noted, suctioned trach and t piece, will continue to monitor PT. Will continue to monitor and suction PT as necessary.
--- NOTE | 2019-05-06 18:13 | Pulmonolgy Critical Care Note ---
Critical Care - Asmt/Plan Assessment/Plan: Pulmonary CCM Progress Note Assessment/Plan Impression: history of Sepsis history of Pneumonia Trach, G tube, Hypertension, Cardiac disease, Dementia, Previous CVA, Seizure disorder, Respiratory failure with hypoxia Anemia, Sacral ulcer renal cyst chronic pulmonary congestion Plan continue with respiratory care monitor protein levels and adjust monitor imaging for change monitor labs and reflux aspiration ;monitor residuals elevate head and monitor secretions DNR. No CPR. ICU care reviewed meds noted and updated neb therapy off load as able nutrition/fees/ dietary skin care difficulty with placement monitor residual and reflux aspiration all changes noted and discussed chronic management reviewed medications/laboratory data/nursing notes/ICU care reviewed in detail note reviewed and edited care discussed with RN and RT Objective Vital Signs Noted Objective WDWN NAD contracted off vent reduced breath sounds bilaterally with some rhonchi; no wheeze [id number] without MRG NABS nontender no HSM no CC minimal nonfocal nonverbal trach and gt reviewed and edited Laboratory Tests Noted Critical Care - Objective Last 24 Hour Vital Signs Date Time Temp Pulse Resp B/P (MAP) Pulse Ox O2 Delivery O2 Flow Rate FiO2 05/06/19 18:00 90 22 136/52 (80) 100 05/06/19 17:00 93 23 123/53 (76) 100 05/06/19 16:00 5.0 28 05/06/19 16:00 98.5 95 23 134/56 (82) 97 05/06/19 16:00 T-piece 5.0 T-piece 5.0 T-piece 5.0 T-piece 5.0 05/06/19 16:00 93 05/06/19 15:59 101 20 100 T-Piece 5.0 28 97 22 98 05/06/19 15:00 98 22 153/58 (89) 100 05/06/19 14:00 93 23 143/60 (87) 98 05/06/19 13:00 93 22 102/52 (69) 95 05/06/19 13:00 98 T-Piece 5.0 28 05/06/19 12:00 T-piece 5.0 T-piece 5.0 T-piece 5.0 T-piece 5.0 05/06/19 12:00 97.5 95 23 143/57 (85) 99 05/06/19 12:00 97 05/06/19 12:00 5.0 28 05/06/19 11:59 91 22 100 T-Piece 5.0 28 90 20 100 05/06/19 11:00 97 24 130/57 (81) 98 05/06/19 10:00 97 23 106/52 (70) 96 05/06/19 09:00 93 26 135/59 (84) 95 05/06/19 08:00 96 05/06/19 08:00 5.0 28 05/06/19 08:00 98.8 91 22 122/52 (75) 96 05/06/19 08:00 T-piece 5.0 T-piece 5.0 T-piece 5.0 T-piece 5.0 05/06/19 07:16 90 26 100 T-Piece 5.0 28 92 22 100 05/06/19 07:16 100 T-Piece 5.0 28 05/06/19 07:00 85 21 118/49 (72) 100 05/06/19 06:00 88 21 136/57 (83) 100 05/06/19 05:00 93 22 131/46 (74) 96 05/06/19 04:00 112 05/06/19 04:00 T-piece 5.0 T-piece 5.0 T-piece 5.0 T-piece 5.0 05/06/19 04:00 98.5 94 23 136/36 (69) 98 05/06/19 04:00 5.0 28 05/06/19 03:14 101 23 100 T-Piece 5.0 28 05/06/19 03:03 97 24 98 T-Piece 5.0 28 05/06/19 03:00 90 24 133/37 (69) 97 05/06/19 02:00 91 25 143/34 (70) 98 05/06/19 01:14 100 T-Piece 5.0 28 05/06/19 01:00 93 23 140/42 (74) 100 05/06/19 00:00 T-piece 5.0 T-piece 5.0 T-piece 5.0 T-piece 5.0 05/06/19 00:00 98.3 95 24 151/48 (82) 100 05/06/19 00:00 93 05/06/19 00:00 5.0 28 05/05/19 23:40 98 27 100 T-Piece 5.0 28 05/05/19 23:30 94 24 100 T-Piece 5.0 28 05/05/19 23:00 93 23 130/30 (63) 99 05/05/19 22:00 102 25 164/42 (82) 97 05/05/19 21:00 94 23 106/48 (67) 97 05/05/19 20:00 94 05/05/19 20:00 T-piece 5.0 T-piece 5.0 T-piece 5.0 T-piece 5.0 05/05/19 20:00 5.0 28 05/05/19 20:00 98.0 91 23 120/26 (57) 98 05/05/19 19:33 97 21 99 T-Piece 5.0 28 05/05/19 19:23 98 T-Piece 5.0 28 05/05/19 19:23 97 24 98 T-Piece 5.0 28 05/05/19 19:00 93 23 111/52 (71) 97 Accucheck: 110 Critical Care - Subjective ROS Limited/Unobtainable: Yes Condition: stable FI02: 28 Vent Support Mode: CPAP Vent Tidal Volume: 450 Sputum Amount: Moderate PEEP: 5.0 PIP: 19 Tube Feeding Amount: 60 I&O: Intake and Output 05/05/19 05/06/19 19:00 07:00 Intake Total 2075 ml 2020 ml Output Total 950 ml 1300 ml Balance 1125 ml 720 ml Free Water 300 ml 300 ml IV Total 605 ml 550 ml Tube Feeding 720 ml 720 ml Other 450 ml 450 ml Output Urine Total 500 ml 600 ml Gastric Drainage Total 450 ml 700 ml # Bowel Movements 1 ET-Tube: 6.0 Bg Moffett MD May 06, 2019 18:13
--- NOTE | 2019-05-06 19:23 | NUR ---
HAND-OFF: Report and PT given to JEANNINE Elaine.
--- NOTE | 2019-05-06 19:24 | NUR ---
NURSE NOTES: Received patient from JEANNINE Suggs. Will continue plan of care.
--- NOTE | 2019-05-06 20:00 | NUR ---
NURSE NOTES: Patient is awake, eyes open but does not track. T-piece Shiley 6xlt @ 28% O2 saturating at 100%. Feeding with Vital AF @ 60ml/hr via J-tube- flushed with 150ml h2o. G-tube flushed with 100ml h2o and draining gastric content via gravity. Purewick in place and suctioning well. 1/2 NS @ 50ml/hr via right upper arm PICC line. BP:136/64 HR:99. Suctioning provided. Safety measures in place; bed low, locked and alarm is on. Will continue plan of care.
[2019-05-06] MEDS: Dyna-Hex 2% Top Sol 2oz TOPIC SCH (20:06)
--- NOTE | 2019-05-06 20:26 | General Progress Note ---
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 - Anemia with OB (-) stools - Resp failure, s/p Trach - dysphagia, s/p PEG --> GJ tube - OBS, vegetative obtunded unresponsive state, bedbound with contracted extremities, - h/o minor GJ tube site irritation - poor Prognosis Recommendations - daily sorbitol, and PRN sorbitol - Cristian BID - antibiotic ointment to GJT site PRN - aspiration precautions - elevate HOB - Vital AF 1.2 - check q 6 hour FS - transfuse to keep Hg > 7 - J tube feeds - G tube drain - IVF - check ESR --> elevated - further evaluation for autoimmune hepatitis (anti DNA, ASMA) - daughter wants to discuss with ID re risks of immune suppression Subjective Allergies: Coded Allergies: CODEINE (Verified Allergy, Unknown, HIVES, 09/15/09) Subjective above noted tolerating TF d/w ID and daughter re labs now with elevated IgG to 1826 mg/dl, c/w autoimmune hepatitis Explained autoimmune hepatitis, its natural hx, possibility of flares, and treatment options to daughter at length advised daughter re pros/cons of immune suppression in this setting Objective Last 24 Hour Vital Signs Date Time Temp Pulse Resp B/P (MAP) Pulse Ox O2 Delivery O2 Flow Rate FiO2 05/06/19 19:34 100 T-Piece 5.0 28 05/06/19 19:33 91 22 100 T-Piece 5.0 28 90 23 100 05/06/19 18:00 90 22 136/52 (80) 100 05/06/19 17:00 93 23 123/53 (76) 100 05/06/19 16:00 5.0 28 05/06/19 16:00 98.5 95 23 134/56 (82) 97 05/06/19 16:00 T-piece 5.0 T-piece 5.0 T-piece 5.0 T-piece 5.0 05/06/19 16:00 93 05/06/19 15:59 101 20 100 T-Piece 5.0 28 97 22 98 05/06/19 15:00 98 22 153/58 (89) 100 05/06/19 14:00 93 23 143/60 (87) 98 05/06/19 13:00 93 22 102/52 (69) 95 05/06/19 13:00 98 T-Piece 5.0 28 05/06/19 12:00 T-piece 5.0 T-piece 5.0 T-piece 5.0 T-piece 5.0 05/06/19 12:00 97.5 95 23 143/57 (85) 99 05/06/19 12:00 97 05/06/19 12:00 5.0 28 05/06/19 11:59 91 22 100 T-Piece 5.0 28 90 20 100 05/06/19 11:00 97 24 130/57 (81) 98 05/06/19 10:00 97 23 106/52 (70) 96 05/06/19 09:00 93 26 135/59 (84) 95 05/06/19 08:00 96 05/06/19 08:00 5.0 28 05/06/19 08:00 98.8 91 22 122/52 (75) 96 05/06/19 08:00 T-piece 5.0 T-piece 5.0 T-piece 5.0 T-piece 5.0 05/06/19 07:16 90 26 100 T-Piece 5.0 28 92 22 100 05/06/19 07:16 100 T-Piece 5.0 28 05/06/19 07:00 85 21 118/49 (72) 100 05/06/19 06:00 88 21 136/57 (83) 100 05/06/19 05:00 93 22 131/46 (74) 96 05/06/19 04:00 112 05/06/19 04:00 T-piece 5.0 T-piece 5.0 T-piece 5.0 T-piece 5.0 05/06/19 04:00 98.5 94 23 136/36 (69) 98 05/06/19 04:00 5.0 28 05/06/19 03:14 101 23 100 T-Piece 5.0 28 05/06/19 03:03 97 24 98 T-Piece 5.0 28 05/06/19 03:00 90 24 133/37 (69) 97 05/06/19 02:00 91 25 143/34 (70) 98 05/06/19 01:14 100 T-Piece 5.0 28 05/06/19 01:00 93 23 140/42 (74) 100 05/06/19 00:00 T-piece 5.0 T-piece 5.0 T-piece 5.0 T-piece 5.0 05/06/19 00:00 98.3 95 24 151/48 (82) 100 05/06/19 00:00 93 05/06/19 00:00 5.0 28 05/05/19 23:40 98 27 100 T-Piece 5.0 28 05/05/19 23:30 94 24 100 T-Piece 5.0 28 05/05/19 23:00 93 23 130/30 (63) 99 05/05/19 22:00 102 25 164/42 (82) 97 05/05/19 21:00 94 23 106/48 (67) 97 Intake and Output 05/05/19 05/06/19 19:00 07:00 Intake Total 2075 ml 2020 ml Output Total 950 ml 1300 ml Balance 1125 ml 720 ml Free Water 300 ml 300 ml IV Total 605 ml 550 ml Tube Feeding 720 ml 720 ml Other 450 ml 450 ml Output Urine Total 500 ml 600 ml Gastric Drainage Total 450 ml 700 ml # Bowel Movements 1 Height (Feet): 5 Height (Inches): 3.00 Weight (Pounds): 132 Objective Debilitated AA woman non-verbal, obtunded NCAT (+) trach coarse BS RR obese abd, (+) GJT no edema (+) contractured extremities Celio Vaughan MD May 06, 2019 20:26
--- NOTE | 2019-05-06 22:00 | NUR ---
NURSE NOTES: Vital signs stable. Suctioning and oral care provided. Turned and repositioned. Cristian given.
[2019-05-07] VITALS (36 sets, daily range): BP systolic 85–149; BP diastolic 22–60
--- NOTE | 2019-05-07 | NUR ---
NURSE NOTES: Suctioning provided. G/J tube flushed with h2o per order. Turned and repositioned. Vital signs stable.
--- NOTE | 2019-05-07 02:00 | NUR ---
NURSE NOTES: Suctioning and oral care provided. Vital sign stable. Patient is comfortable shows no pain or distress.
[2019-05-07] MEDS: Albuterol/Ipratropium 3ml neb HHN SCH ×6 (03:32→22:07)
--- NOTE | 2019-05-07 04:00 | NUR ---
NURSE NOTES: Frequent suctioning needed due to large amounts of thin white frothy secretions. Oral care done. Bed bath, linen change, wound care dressing change provided. Turned and repositioned. G/J Tube flushed with h2o. Patient is comfortable.
[2019-05-07 05:33] LABS: ALANINE AMINOTRANSFERASE 83 U/L (12-78); ALBUMIN 2.9 G/DL (3.4-5.0); ALKALINE PHOSPHATASE 163 U/L (46-116); ASPARTATE AMINO TRANSFERASE 37 U/L (15-37); BILIRUBIN,TOTAL 0.3 MG/DL (0.2-1.0)
--- NOTE | 2019-05-07 06:00 | NUR ---
NURSE NOTES: Patient is sleeping comfortably. Suctioning provided. G-Tube drainage of 600ml this shift. Vital signs stable.
[2019-05-07 06:12] LABS: BILIRUBIN,DIRECT < 0.1 MG/DL (0.0-0.3)
--- NOTE | 2019-05-07 07:15 | NUR ---
HAND-OFF: Report given to JEANNINE Suggs.
--- NOTE | 2019-05-07 07:16 | NUR ---
NURSE NOTES: Late entry: PT and report received from JEANNINE Elaine; PT received sleeping; on t-piece cool aerosol 28%/5L; shiley 6.0xlt; no S/S of respiratory distress noted 100% saturation; PT has JT infusing vital AF @ 60cc/hr; 0cc residual noted; GT draining at gravity, PT has purewick to wall suction intact; PT has JOSY-PICC infusing 1/2NS @ 50cc/hr intact patent flushes well, PT is on p200 mattress; will continue to monitor PT closely.
--- NOTE | 2019-05-07 08:25 | NUR ---
NURSE NOTES: Reported to MD Jerel; PT is running fever, received orders for PRN tylenol. Will place orders on behalf of .
[2019-05-07] MEDS ORDERED: Acetaminophen 650mg/20.3ml GT PRN (08:30)
[2019-05-07] MEDS: Cefepime HCl 2 GM in D5W 55 ML IVPB SCH (08:41)
[2019-05-07] MEDS: levETIRAcetam 500mg/5ml Liquid GT SCH ×2 (08:42→20:54)
[2019-05-07] MEDS: Sorbitol Solution UD 30ml GT SCH (08:42)
[2019-05-07] MEDS: Heparin 5000 units/ml inj SUBQ SCH ×2 (08:43→21:00)
--- NOTE | 2019-05-07 09:08 | Pulmonology Progress Note ---
Assessment/Plan Assessment/Plan Impression: history of Sepsis history of Pneumonia Trach, G tube, Hypertension, Cardiac disease, Dementia, Previous CVA, Seizure disorder, Respiratory failure with hypoxia Anemia, Sacral ulcer renal cyst chronic pulmonary congestion Plan continue with respiratory care monitor protein levels and adjust monitor imaging for change- keep negative; appear wet on imaging monitor labs and reflux aspiration ;monitor residuals elevate head and monitor secretions DNR. No CPR. ICU care reviewed meds noted and updated neb therapy off load as able nutrition/fees/ dietary as is; monitor residuals skin care difficulty with placement all changes noted and discussed chronic management as able medications/laboratory data/nursing notes/ICU care reviewed in detail note reviewed and edited care discussed with RN and RT Subjective ROS Limited/Unobtainable: Yes Allergies: Coded Allergies: CODEINE (Verified Allergy, Unknown, HIVES, 09/15/09) Subjective overnight events noted; still off vent multiple cultures noted ICU care issues discussed bed bound and obtunded slightly more congested Objective Last 24 Hour Vital Signs Date Time Temp Pulse Resp B/P (MAP) Pulse Ox O2 Delivery O2 Flow Rate FiO2 05/07/19 08:00 T-piece 5.0 T-piece 5.0 T-piece 5.0 T-piece 5.0 05/07/19 08:00 101.0 120 27 86/45 (59) 98 05/07/19 08:00 5.0 28 05/07/19 07:21 100 T-Piece 5.0 28 05/07/19 07:00 119 26 132/46 (74) 99 05/07/19 06:00 105 25 122/39 (66) 98 05/07/19 05:00 99 23 137/37 (70) 99 05/07/19 04:00 T-piece 5.0 T-piece 5.0 T-piece 5.0 T-piece 5.0 05/07/19 04:00 98.0 102 21 132/51 (78) 95 05/07/19 04:00 5.0 28 05/07/19 03:32 100 22 100 T-Piece 5.0 28 101 24 98 05/07/19 03:05 102 05/07/19 03:00 106 22 145/30 (68) 98 05/07/19 02:00 96 21 132/50 (77) 98 05/07/19 01:42 98 T-Piece 5.0 28 05/07/19 01:00 98 25 138/34 (68) 99 05/07/19 00:00 98.2 97 27 149/58 (88) 96 05/07/19 00:00 T-piece 5.0 T-piece 5.0 T-piece 5.0 T-piece 5.0 05/06/19 23:08 94 21 100 T-Piece 5.0 28 93 23 98 05/06/19 23:06 94 05/06/19 23:00 96 21 123/19 (53) 99 05/06/19 22:00 93 21 111/43 (65) 99 05/06/19 21:00 99 24 135/63 (87) 98 05/06/19 20:00 T-piece 5.0 T-piece 5.0 T-piece 5.0 T-piece 5.0 05/06/19 20:00 5.0 28 05/06/19 20:00 97.8 99 23 136/64 (88) 100 05/06/19 19:48 95 05/06/19 19:34 100 T-Piece 5.0 28 05/06/19 19:33 91 22 100 T-Piece 5.0 28 90 23 100 05/06/19 19:00 92 23 108/50 (69) 100 05/06/19 18:00 90 22 136/52 (80) 100 05/06/19 17:00 93 23 123/53 (76) 100 05/06/19 16:00 5.0 28 05/06/19 16:00 98.5 95 23 134/56 (82) 97 05/06/19 16:00 T-piece 5.0 T-piece 5.0 T-piece 5.0 T-piece 5.0 05/06/19 16:00 93 05/06/19 15:59 101 20 100 T-Piece 5.0 28 97 22 98 05/06/19 15:00 98 22 153/58 (89) 100 05/06/19 14:00 93 23 143/60 (87) 98 05/06/19 13:00 93 22 102/52 (69) 95 05/06/19 13:00 98 T-Piece 5.0 28 05/06/19 12:00 T-piece 5.0 T-piece 5.0 T-piece 5.0 T-piece 5.0 05/06/19 12:00 97.5 95 23 143/57 (85) 99 05/06/19 12:00 97 05/06/19 12:00 5.0 28 05/06/19 11:59 91 22 100 T-Piece 5.0 28 90 20 100 05/06/19 11:00 97 24 130/57 (81) 98 05/06/19 10:00 97 23 106/52 (70) 96 Intake and Output 05/06/19 05/07/19 19:00 07:00 Intake Total 2035 ml 2054.17 ml Output Total 600 ml 1200 ml Balance 1435 ml 854.17 ml Free Water 300 ml 300 ml IV Total 655 ml 584.17 ml Tube Feeding 630 ml 720 ml Other 450 ml 450 ml Output Urine Total 600 ml Gastric Drainage Total 600 ml 600 ml # Bowel Movements 2 Objective WDWN NAD contracted off vent reduced breath sounds bilaterally without rhonchi or wheeze [id number] without MRG NABS nontender no HSM no CC trace edema same nonfocal nonverbal trach and gt reviewed and edited Laboratory Tests 05/07/19 04:00: Total Bilirubin 0.3, Direct Bilirubin < 0.1, Aspartate Amino Transf (AST/SGOT) 37, Alanine Aminotransferase (ALT/SGPT) 83H, Alkaline Phosphatase 163H, Total Protein 8.5H, Albumin 2.9L Current Medications Medications (Trade) Dose Ordered Sig/Maicol Route PRN Reason Start Time Stop Time Status Last Admin Dose Admin Acetaminophen (Tylenol) 650 mg Q4H PRN GT Mild Pain/Temp > 100.5 05/07/19 08:30 06/06/19 08:29 05/07/19 08:42 Albuterol/ Ipratropium (Albuterol/ Ipratropium) 3 ml Q4HRT HHN 05/05/19 19:00 05/10/19 18:59 05/07/19 03:32 Atropine Sulfate (Atropine Opth Adriana) 1 drop THREE TIMES A DAY SL 04/08/19 09:00 05/07/19 20:59 05/07/19 08:44 Cefepime HCl 2 gm/ Dextrose 55 ml @ 110 mls/hr DAILY IVPB 05/04/19 10:00 05/11/19 09:59 05/07/19 08:41 Chlorhexidine Gluconate (Cesilia-Hex 2%) 1 applic DAILY@2000 TOPIC 04/12/19 20:00 05/12/19 19:59 05/06/19 20:06 Heparin Sodium (Porcine) (Heparin 5000 units/ml) 5,000 units EVERY 12 HOURS SUBQ 05/01/19 21:00 05/31/19 20:59 05/07/19 08:43 Levetiracetam (Keppra) 500 mg Q12HR GT 05/01/19 21:00 05/28/19 08:59 05/07/19 08:42 Sodium Chloride 1,000 ml @ 50 mls/hr Q20H IV 05/02/19 17:15 06/01/19 17:14 05/06/19 21:19 Sorbitol (Sorbitol) 30 ml BIDPRN PRN ORAL Constipation 04/13/19 11:15 05/13/19 11:14 Sorbitol (sorbitoL) 30 ml DAILY GT 04/14/19 09:00 05/14/19 08:59 05/07/19 08:42 Amaury Chan MD May 07, 2019 09:08
--- NOTE | 2019-05-07 09:15 | NUR ---
NURSE NOTES: Late entry: PT had episode of vomiting orally after being given medication as prescribed through G-port. Vomit was clear in color consistent to medications given. PT HOB was elevated prior to giving medication, immediate suctioning given orally, no secretions noted from trach suctioning. RT Agnes called for assistance also. Reported episode to MD Clement; MD made aware, orders given to "reduce g-port flush when giving elixir type medication to 25cc Q4H; continue with g-port flush if no medication is given to 100cc Q4H." Also orders given to notify PT fever to ID . Will place orders on behalf of .
--- NOTE | 2019-05-07 09:40 | Nephrology Progress Note ---
Assessment/Plan Problem List: (1) Acute renal failure (ARF) Assessment: Cr stable (2) Chronic respiratory failure (3) Anemia (4) Sepsis Assessment Acute renal failure Respiratory failure - Trach Low Mag- Low k , Low Na Anemia UTI / Sepsis Proteinuria / HypoAlbuminemia high Trigs Sz decubs bed bound DNR Plan no labs today- Transfused previously now has JT bolus Albumin as needed K and Mag and Phos supplement as needed Hydrate as needed Urine studies avoid Nephrotoxics mag K Phos supplements as needed monitor renal parameters Subjective ROS Limited/Unobtainable: Yes Objective Objective Last 24 Hour Vital Signs Date Time Temp Pulse Resp B/P (MAP) Pulse Ox O2 Delivery O2 Flow Rate FiO2 05/07/19 08:00 T-piece 5.0 T-piece 5.0 T-piece 5.0 T-piece 5.0 05/07/19 08:00 101.0 120 27 86/45 (59) 98 05/07/19 08:00 5.0 28 05/07/19 07:21 100 T-Piece 5.0 28 05/07/19 07:00 119 26 132/46 (74) 99 05/07/19 06:00 105 25 122/39 (66) 98 05/07/19 05:00 99 23 137/37 (70) 99 05/07/19 04:00 T-piece 5.0 T-piece 5.0 T-piece 5.0 T-piece 5.0 05/07/19 04:00 98.0 102 21 132/51 (78) 95 05/07/19 04:00 5.0 28 05/07/19 03:32 100 22 100 T-Piece 5.0 28 101 24 98 05/07/19 03:05 102 05/07/19 03:00 106 22 145/30 (68) 98 05/07/19 02:00 96 21 132/50 (77) 98 05/07/19 01:42 98 T-Piece 5.0 28 05/07/19 01:00 98 25 138/34 (68) 99 05/07/19 00:00 98.2 97 27 149/58 (88) 96 05/07/19 00:00 T-piece 5.0 T-piece 5.0 T-piece 5.0 T-piece 5.0 05/06/19 23:08 94 21 100 T-Piece 5.0 28 93 23 98 05/06/19 23:06 94 05/06/19 23:00 96 21 123/19 (53) 99 05/06/19 22:00 93 21 111/43 (65) 99 05/06/19 21:00 99 24 135/63 (87) 98 05/06/19 20:00 T-piece 5.0 T-piece 5.0 T-piece 5.0 T-piece 5.0 05/06/19 20:00 5.0 28 05/06/19 20:00 97.8 99 23 136/64 (88) 100 05/06/19 19:48 95 05/06/19 19:34 100 T-Piece 5.0 28 05/06/19 19:33 91 22 100 T-Piece 5.0 28 90 23 100 05/06/19 19:00 92 23 108/50 (69) 100 05/06/19 18:00 90 22 136/52 (80) 100 05/06/19 17:00 93 23 123/53 (76) 100 05/06/19 16:00 5.0 28 05/06/19 16:00 98.5 95 23 134/56 (82) 97 05/06/19 16:00 T-piece 5.0 T-piece 5.0 T-piece 5.0 T-piece 5.0 05/06/19 16:00 93 05/06/19 15:59 101 20 100 T-Piece 5.0 28 97 22 98 05/06/19 15:00 98 22 153/58 (89) 100 05/06/19 14:00 93 23 143/60 (87) 98 05/06/19 13:00 93 22 102/52 (69) 95 05/06/19 13:00 98 T-Piece 5.0 28 05/06/19 12:00 T-piece 5.0 T-piece 5.0 T-piece 5.0 T-piece 5.0 05/06/19 12:00 97.5 95 23 143/57 (85) 99 05/06/19 12:00 97 05/06/19 12:00 5.0 28 05/06/19 11:59 91 22 100 T-Piece 5.0 28 90 20 100 05/06/19 11:00 97 24 130/57 (81) 98 05/06/19 10:00 97 23 106/52 (70) 96 Intake and Output 05/06/19 05/07/19 19:00 07:00 Intake Total 2035 ml 2054.17 ml Output Total 600 ml 1200 ml Balance 1435 ml 854.17 ml Free Water 300 ml 300 ml IV Total 655 ml 584.17 ml Tube Feeding 630 ml 720 ml Other 450 ml 450 ml Output Urine Total 600 ml Gastric Drainage Total 600 ml 600 ml # Bowel Movements 2 Laboratory Tests 05/07/19 04:00: Total Bilirubin 0.3, Direct Bilirubin < 0.1, Aspartate Amino Transf (AST/SGOT) 37, Alanine Aminotransferase (ALT/SGPT) 83H, Alkaline Phosphatase 163H, Total Protein 8.5H, Albumin 2.9L Height (Feet): 5 Height (Inches): 3.00 Weight (Pounds): 132 General Appearance: no apparent distress EENT: other - trach to O2 Cardiovascular: tachycardia Respiratory/Chest: decreased breath sounds Abdomen: distended Objective no change Eric Cortez MD May 07, 2019 09:40
[2019-05-07] MEDS ORDERED: Acetaminophen 650 MG SUPP RECTAL PRN (09:45)
--- NOTE | 2019-05-07 09:48 | NUR ---
NURSE NOTES: Pt was administered Tylenol via G-port shortly after 0900 this morning. Pt vomited medication out a few minutes after administration. Spoke with pharmacist Blaise; and was instructed to nonadmin med in eMAR, and waste med on pyxis. Pt will now have a new order for Rectal Tylenol per Dr Vaughan.
[2019-05-07 10:59] LABS: HEMATOCRIT 27.2 % (37.0-47.0); HEMOGLOBIN 9.2 G/DL (12.0-16.0); MEAN CORPUSCULAR VOLUME 88 FL (80-99); PLATELET COUNT 181 K/UL (150-450); RED CELL DISTRIBUTION WIDTH 13.7 % (11.6-14.8)
[2019-05-07 11:11] LABS: WHITE BLOOD COUNT 25.9 K/UL (4.8-10.8)
[2019-05-07 11:15] LABS: ALANINE AMINOTRANSFERASE 140 U/L (12-78); ALBUMIN 2.8 G/DL (3.4-5.0); ALBUMIN/GLOBULIN RATIO 0.5 (1.0-2.7); ALKALINE PHOSPHATASE 222 U/L (46-116); ANION GAP 11 mmol/L (5-15); ASPARTATE AMINO TRANSFERASE 92 U/L (15-37); BILIRUBIN,TOTAL 0.5 MG/DL (0.2-1.0); BLOOD UREA NITROGEN 66 mg/dL (7-18); CALCIUM 9.1 MG/DL (8.5-10.1); CARBON DIOXIDE 30 MMOL/L (21-32); CHLORIDE 98 MMOL/L (98-107); CREATININE 1.2 MG/DL (0.55-1.30); POTASSIUM 3.9 MMOL/L (3.5-5.1); SODIUM 139 MMOL/L (136-145)
--- NOTE | 2019-05-07 11:23 | NUR ---
NURSE NOTES: CALLED MD Jm AMARO FOR PRIMARY RRio CAR. REGARDING PT BP 83/33, HR 113. PT DNR BUT VERY HYPOTENSIVE. RECOMMEND FLUID BOLUS AND OR LEVO TO MAINTAIN SBP>90. PT CONTINUES TO HAVE LOOSE STOOLS. RECEIVED ORDER TO GIVE 1L NS BOLUS, LEVOPHED 4MG DRIP, LACTIC ACID AND C-DIFF COLLECTION. C.N AWARE.
--- NOTE | 2019-05-07 11:33 | NUR ---
NURSE NOTES: Cooling measures implemented with fan at bedside next to PT; 1L NS bolus started; PT R-axillary temp 99.3; will continue to monitor PT.
--- NOTE | 2019-05-07 13:02 | Infectious Diseases Prog Note ---
Assessment/Plan Assessment/Plan A 1. Citrobacter pneumonia 2. respiratory failure 3. hypertension 4. CVA 5. dementia 6. sacral decubitus ulcer 7. rectal VRE colonization 8. Anemia 9. Proteus UTI 10. Acute renal failure 11. Sepsis with fever, leukocytosis & tachycardia P 1 Continue Cefepime X days 2. start on IV vancomycin 3. C. difficile test 4. will f/u cultures Subjective ROS Limited/Unobtainable: Yes Constitutional: Reports: fever, other - T [id number] Cardiovascular: Reports: other - become tachycardic & hypotensive Gastrointestinal/Abdominal: Reports: diarrhea Allergies: Coded Allergies: CODEINE (Verified Allergy, Unknown, HIVES, 09/15/09) Objective Vital Signs Last 24 Hour Vital Signs Date Time Temp Pulse Resp B/P (MAP) Pulse Ox O2 Delivery O2 Flow Rate FiO2 05/07/19 12:42 99 T-Piece 5.0 28 05/07/19 12:30 105 22 101/41 (61) 100 05/07/19 12:24 91/31 05/07/19 12:00 5.0 28 05/07/19 12:00 109 25 113/29 (57) 100 05/07/19 12:00 T-piece 5.0 T-piece 5.0 T-piece 5.0 T-piece 5.0 05/07/19 11:30 110 23 107/45 (65) 100 05/07/19 11:00 99.3 117 25 85/37 (53) 97 05/07/19 11:00 99.3 05/07/19 10:00 125 35 103/24 (50) 94 05/07/19 09:43 101.0 05/07/19 09:03 126 26 118/51 (73) 97 05/07/19 09:00 140 22 111/24 (53) 96 05/07/19 08:00 T-piece 5.0 T-piece 5.0 T-piece 5.0 T-piece 5.0 05/07/19 08:00 101.0 120 27 86/45 (59) 98 05/07/19 08:00 5.0 28 05/07/19 07:21 100 T-Piece 5.0 28 05/07/19 07:00 119 26 132/46 (74) 99 05/07/19 06:00 105 25 122/39 (66) 98 05/07/19 05:00 99 23 137/37 (70) 99 05/07/19 04:00 T-piece 5.0 T-piece 5.0 T-piece 5.0 T-piece 5.0 05/07/19 04:00 98.0 102 21 132/51 (78) 95 05/07/19 04:00 5.0 28 05/07/19 03:32 100 22 100 T-Piece 5.0 28 101 24 98 05/07/19 03:05 102 05/07/19 03:00 106 22 145/30 (68) 98 05/07/19 02:00 96 21 132/50 (77) 98 05/07/19 01:42 98 T-Piece 5.0 28 05/07/19 01:00 98 25 138/34 (68) 99 05/07/19 00:00 98.2 97 27 149/58 (88) 96 05/07/19 00:00 T-piece 5.0 T-piece 5.0 T-piece 5.0 T-piece 5.0 05/06/19 23:08 94 21 100 T-Piece 5.0 28 93 23 98 05/06/19 23:06 94 05/06/19 23:00 96 21 123/19 (53) 99 05/06/19 22:00 93 21 111/43 (65) 99 05/06/19 21:00 99 24 135/63 (87) 98 05/06/19 20:00 T-piece 5.0 T-piece 5.0 T-piece 5.0 T-piece 5.0 05/06/19 20:00 5.0 28 05/06/19 20:00 97.8 99 23 136/64 (88) 100 05/06/19 19:48 95 05/06/19 19:34 100 T-Piece 5.0 28 05/06/19 19:33 91 22 100 T-Piece 5.0 28 90 23 100 05/06/19 19:00 92 23 108/50 (69) 100 05/06/19 18:00 90 22 136/52 (80) 100 05/06/19 17:00 93 23 123/53 (76) 100 05/06/19 16:00 5.0 28 2/5/20 16:00 98.5 95 23 134/56 (82) 97 05/06/19 16:00 T-piece 5.0 T-piece 5.0 T-piece 5.0 T-piece 5.0 05/06/19 16:00 93 05/06/19 15:59 101 20 100 T-Piece 5.0 28 97 22 98 05/06/19 15:00 98 22 153/58 (89) 100 05/06/19 14:00 93 23 143/60 (87) 98 05/06/19 13:00 93 22 102/52 (69) 95 05/06/19 13:00 98 T-Piece 5.0 28 Height (Feet): 5 Height (Inches): 3.00 Weight (Pounds): 132 HEENT: status post trach Respiratory/Chest: lungs clear, other - on T bar, lots of respiratory secretions Cardiovascular: tachycardia, other - R arm PICC line Abdomen: soft, non tender, other - JG tube Extremities: no edema Neurologic/Psychiatric: unresponsiveness, aphasia Laboratory Tests Test 05/07/19 04:00 05/07/19 10:45 Total Bilirubin 0.3 MG/DL (0.2-1.0) 0.5 MG/DL (0.2-1.0) Direct Bilirubin < 0.1 MG/DL (0.0-0.3) Aspartate Amino Transf (AST/SGOT) 37 U/L (15-37) 92 U/L (15-37) H Alanine Aminotransferase (ALT/SGPT) 83 U/L (12-78) H 140 U/L (12-78) H Alkaline Phosphatase 163 U/L (46-116) H 222 U/L (46-116) H Total Protein 8.5 G/DL (6.4-8.2) H 8.1 G/DL (6.4-8.2) Albumin 2.9 G/DL (3.4-5.0) L 2.8 G/DL (3.4-5.0) L White Blood Count 25.9 K/UL (4.8-10.8) *H Red Blood Count 3.10 M/UL (4.20-5.40) L Hemoglobin 9.2 G/DL (12.0-16.0) L Hematocrit 27.2 % (37.0-47.0) L Mean Corpuscular Volume 88 FL (80-99) Mean Corpuscular Hemoglobin 29.7 PG (27.0-31.0) Mean Corpuscular Hemoglobin Concent 33.8 G/DL (32.0-36.0) Red Cell Distribution Width 13.7 % (11.6-14.8) Platelet Count 181 K/UL (150-450) Mean Platelet Volume 5.1 FL (6.5-10.1) L Neutrophils (%) (Auto) % (45.0-75.0) Lymphocytes (%) (Auto) % (20.0-45.0) Monocytes (%) (Auto) % (1.0-10.0) Eosinophils (%) (Auto) % (0.0-3.0) Basophils (%) (Auto) % (0.0-2.0) Differential Total Cells Counted 100 Neutrophils % (Manual) 91 % (45-75) H Lymphocytes % (Manual) 1 % (20-45) L Monocytes % (Manual) 2 % (1-10) Eosinophils % (Manual) 1 % (0-3) Basophils % (Manual) 0 % (0-2) Band Neutrophils 5 % (0-8) Platelet Estimate Adequate Platelet Morphology Normal Hypochromasia 2+ Anisocytosis 1+ Spherocytes 1+ Sodium Level 139 MMOL/L (136-145) Potassium Level 3.9 MMOL/L (3.5-5.1) Chloride Level 98 MMOL/L (98-107) Carbon Dioxide Level 30 MMOL/L (21-32) Anion Gap 11 mmol/L (5-15) Blood Urea Nitrogen 66 mg/dL (7-18) H Creatinine 1.2 MG/DL (0.55-1.30) Estimat Glomerular Filtration Rate mL/min (>60) Glucose Level 161 MG/DL (74-106) H Lactic Acid Level 1.70 mmol/L (0.4-2.0) Calcium Level 9.1 MG/DL (8.5-10.1) Globulin 5.3 g/dL Albumin/Globulin Ratio 0.5 (1.0-2.7) L Current Medications Medications (Trade) Dose Ordered Sig/Maicol Route PRN Reason Start Time Stop Time Status Last Admin Dose Admin Acetaminophen (Tylenol) 650 mg Q4H PRN RECTAL T>100.5 / Mild Pain 05/07/19 09:45 06/06/19 09:44 05/07/19 10:13 Albuterol/ Ipratropium (Albuterol/ Ipratropium) 3 ml Q4HRT HHN 05/05/19 19:00 05/10/19 18:59 05/07/19 03:32 Atropine Sulfate (Atropine Opth Adriana) 1 drop THREE TIMES A DAY SL 04/08/19 09:00 05/07/19 20:59 05/07/19 12:27 Cefepime HCl 2 gm/ Dextrose 55 ml @ 110 mls/hr DAILY IVPB 05/04/19 10:00 05/11/19 09:59 05/07/19 08:41 Chlorhexidine Gluconate (Cesilia-Hex 2%) 1 applic DAILY@2000 TOPIC 04/12/19 20:00 05/12/19 19:59 05/06/19 20:06 Heparin Sodium (Porcine) (Heparin 5000 units/ml) 5,000 units EVERY 12 HOURS SUBQ 05/01/19 21:00 05/31/19 20:59 05/07/19 08:43 Levetiracetam (Keppra) 500 mg Q12HR GT 05/01/19 21:00 05/28/19 08:59 05/07/19 08:42 Norepinephrine Bitartrate 4 mg/ Dextrose 250 ml @ 0 mls/hr Q24H IV 05/07/19 12:30 06/06/19 12:29 05/07/19 12:24 Sodium Chloride 1,000 ml @ 50 mls/hr Q20H IV 05/02/19 17:15 06/01/19 17:14 05/06/19 21:19 Sorbitol (Sorbitol) 30 ml BIDPRN PRN ORAL Constipation 04/13/19 11:15 05/13/19 11:14 Sorbitol (sorbitoL) 30 ml DAILY GT 04/14/19 09:00 05/14/19 08:59 05/07/19 08:42 Chauncey Liriano MD May 07, 2019 13:02
--- NOTE | 2019-05-07 13:51 | Diagnostic Imaging Report ---
Indication: Dyspnea Comparison: 05/06/2019 A single view chest radiograph was obtained. Findings: Tracheostomy again noted. Abnormal perihilar densities are demonstrated. The right upper lobe is obscured. PICC line is in good position. Heart is normal size. Lung volumes are very low. Aorta is calcified. Bones are osteopenic. There is catheter tubing projected over the upper abdomen. IMPRESSION: Perihilar infiltrates. To some extent, this may be chronic.
--- NOTE | 2019-05-07 14:35 | NUR ---
NURSE NOTES: PT VS stable, remains on 1mcg/min; will continue to monitor PT.
[2019-05-07] MEDS: Vancomycin 1gm/D5W 275ml IVPB SCH ×2 (15:23)
--- NOTE | 2019-05-07 15:53 | Surgery Progress Note ---
Surgery Progress Note Subjective Additional Comments hypotensive now on pressors diarrhea pending c diff leukocytosis acute elevation Objective Last 24 Hour Vital Signs Date Time Temp Pulse Resp B/P (MAP) Pulse Ox O2 Delivery O2 Flow Rate FiO2 05/07/19 15:39 99 24 100 T-Piece 5.0 28 97 26 100 05/07/19 14:00 108 21 90/48 (62) 98 05/07/19 14:00 112/55 05/07/19 13:30 111 23 137/60 (85) 99 05/07/19 13:00 102 22 87/22 (43) 100 05/07/19 13:00 137/60 05/07/19 12:42 99 T-Piece 5.0 28 05/07/19 12:30 105 22 101/41 (61) 100 05/07/19 12:24 91/31 05/07/19 12:00 5.0 28 05/07/19 12:00 109 05/07/19 12:00 109 25 113/29 (57) 100 05/07/19 12:00 T-piece 5.0 T-piece 5.0 T-piece 5.0 T-piece 5.0 05/07/19 11:30 110 23 107/45 (65) 100 05/07/19 11:00 99.3 117 25 85/37 (53) 97 05/07/19 11:00 99.3 05/07/19 10:00 125 35 103/24 (50) 94 05/07/19 09:43 101.0 05/07/19 09:03 126 26 118/51 (73) 97 05/07/19 09:00 140 22 111/24 (53) 96 05/07/19 08:00 T-piece 5.0 T-piece 5.0 T-piece 5.0 T-piece 5.0 05/07/19 08:00 101.0 120 27 86/45 (59) 98 05/07/19 08:00 5.0 28 05/07/19 08:00 121 05/07/19 07:21 100 T-Piece 5.0 28 05/07/19 07:00 119 26 132/46 (74) 99 05/07/19 06:00 105 25 122/39 (66) 98 05/07/19 05:00 99 23 137/37 (70) 99 05/07/19 04:00 T-piece 5.0 T-piece 5.0 T-piece 5.0 T-piece 5.0 05/07/19 04:00 98.0 102 21 132/51 (78) 95 05/07/19 04:00 5.0 28 05/07/19 03:32 100 22 100 T-Piece 5.0 28 101 24 98 05/07/19 03:05 102 05/07/19 03:00 106 22 145/30 (68) 98 05/07/19 02:00 96 21 132/50 (77) 98 05/07/19 01:42 98 T-Piece 5.0 28 05/07/19 01:00 98 25 138/34 (68) 99 05/07/19 00:00 98.2 97 27 149/58 (88) 96 05/07/19 00:00 T-piece 5.0 T-piece 5.0 T-piece 5.0 T-piece 5.0 05/06/19 23:08 94 21 100 T-Piece 5.0 28 93 23 98 05/06/19 23:06 94 05/06/19 23:00 96 21 123/19 (53) 99 05/06/19 22:00 93 21 111/43 (65) 99 05/06/19 21:00 99 24 135/63 (87) 98 05/06/19 20:00 T-piece 5.0 T-piece 5.0 T-piece 5.0 T-piece 5.0 05/06/19 20:00 5.0 28 05/06/19 20:00 97.8 99 23 136/64 (88) 100 05/06/19 19:48 95 05/06/19 19:34 100 T-Piece 5.0 28 05/06/19 19:33 91 22 100 T-Piece 5.0 28 90 23 100 05/06/19 19:00 92 23 108/50 (69) 100 05/06/19 18:00 90 22 136/52 (80) 100 05/06/19 17:00 93 23 123/53 (76) 100 05/06/19 16:00 5.0 28 05/06/19 16:00 98.5 95 23 134/56 (82) 97 05/06/19 16:00 T-piece 5.0 T-piece 5.0 T-piece 5.0 T-piece 5.0 05/06/19 16:00 93 05/06/19 15:59 101 20 100 T-Piece 5.0 28 97 22 98 I&O Intake and Output 05/06/19 05/07/19 19:00 07:00 Intake Total 2035 ml 2054.17 ml Output Total 600 ml 1200 ml Balance 1435 ml 854.17 ml Free Water 300 ml 300 ml IV Total 655 ml 584.17 ml Tube Feeding 630 ml 720 ml Other 450 ml 450 ml Output Urine Total 600 ml Gastric Drainage Total 600 ml 600 ml # Bowel Movements 2 Dressing: other Wound: other Drains: other Cardiovascular: RSR Respiratory: decreased breath sounds Abdomen: soft, present bowel sounds, non-distended Extremities: no tenderness, no cyanosis, other Laboratory Tests Test 05/07/19 04:00 05/07/19 10:45 Total Bilirubin 0.3 MG/DL (0.2-1.0) 0.5 MG/DL (0.2-1.0) Direct Bilirubin < 0.1 MG/DL (0.0-0.3) Aspartate Amino Transf (AST/SGOT) 37 U/L (15-37) 92 U/L (15-37) H Alanine Aminotransferase (ALT/SGPT) 83 U/L (12-78) H 140 U/L (12-78) H Alkaline Phosphatase 163 U/L (46-116) H 222 U/L (46-116) H Total Protein 8.5 G/DL (6.4-8.2) H 8.1 G/DL (6.4-8.2) Albumin 2.9 G/DL (3.4-5.0) L 2.8 G/DL (3.4-5.0) L White Blood Count 25.9 K/UL (4.8-10.8) *H Red Blood Count 3.10 M/UL (4.20-5.40) L Hemoglobin 9.2 G/DL (12.0-16.0) L Hematocrit 27.2 % (37.0-47.0) L Mean Corpuscular Volume 88 FL (80-99) Mean Corpuscular Hemoglobin 29.7 PG (27.0-31.0) Mean Corpuscular Hemoglobin Concent 33.8 G/DL (32.0-36.0) Red Cell Distribution Width 13.7 % (11.6-14.8) Platelet Count 181 K/UL (150-450) Mean Platelet Volume 5.1 FL (6.5-10.1) L Neutrophils (%) (Auto) % (45.0-75.0) Lymphocytes (%) (Auto) % (20.0-45.0) Monocytes (%) (Auto) % (1.0-10.0) Eosinophils (%) (Auto) % (0.0-3.0) Basophils (%) (Auto) % (0.0-2.0) Differential Total Cells Counted 100 Neutrophils % (Manual) 91 % (45-75) H Lymphocytes % (Manual) 1 % (20-45) L Monocytes % (Manual) 2 % (1-10) Eosinophils % (Manual) 1 % (0-3) Basophils % (Manual) 0 % (0-2) Band Neutrophils 5 % (0-8) Platelet Estimate Adequate Platelet Morphology Normal Hypochromasia 2+ Anisocytosis 1+ Spherocytes 1+ Sodium Level 139 MMOL/L (136-145) Potassium Level 3.9 MMOL/L (3.5-5.1) Chloride Level 98 MMOL/L (98-107) Carbon Dioxide Level 30 MMOL/L (21-32) Anion Gap 11 mmol/L (5-15) Blood Urea Nitrogen 66 mg/dL (7-18) H Creatinine 1.2 MG/DL (0.55-1.30) Estimat Glomerular Filtration Rate mL/min (>60) Glucose Level 161 MG/DL (74-106) H Lactic Acid Level 1.70 mmol/L (0.4-2.0) Calcium Level 9.1 MG/DL (8.5-10.1) Globulin 5.3 g/dL Albumin/Globulin Ratio 0.5 (1.0-2.7) L Plan Problems: (1) Sacral decubitus ulcer Assessment & Plan: This is a 83-year-old female with multiple medical committees that is currently admitted for medical care and management and identified to have multiple wounds requiring care. On admission patient noted to have a resolved sacral decubitus ulcer. Has had prior care and is well-healed at this time. Will ensure it does not open up again. Patient has a right ischial decubitus ulcer that is resolved. Scar intact and well formed. Will monitor to ensure it does not open up again. Patient has a left ischial decubitus ulcer that can be identified to be stage IV with palpable bone that has been resolving as noted by the periwound tissue and scar but open area approximately 1 cm x 1.5 cm few millimeters deep to bone identified. Unsure if this is been to be completely healed prior and has since opened or if has been healing at this level. No foul odor no drainage was unsure local wound care until healed Bilateral heels soft without signs of injury Resolving pressure injury L ischium(L)1.8cm x (W)1cm.Scattered biofilm at base of wound. Edges flat and adherent with surrounding hyperpigmentation. No odor or exudate noted. Sacrum is pale pink with surrounding hyperpigmentation. Hyperpigmentation R ischium with small sheared area centrally.No areas of erythema or exudate noted. Both heels are soft but blanchable. Skin Assessed under collar of trach and no evidence of skin breakdown noted. All wound Tx. are effective and continued as ordered. Pt ahs an APM/Belén mattress overlay and is being repositioned per protocols and per tolerance.No new skin concerns noted. Full thickness pressure injury L Ischium with small amt biofilm (L)1.8cm x (W) 1cm. Surrounding pink hyperpigmentation. No odor or exudate noted. Knowles hyperpigmentation from previous wound noted to sacrum. Pt also noted to have Cat 2 Skin Tear dorsal L hand, L 5th metatarsal extending into palm of hand. 80% skin flap in situ.Both heels are dry firm and blanchable. No other skin concerns noted. R ischial wound has resolved. Knowles epithelial with surrounding hyperpigmentation. from historical wound. Full thickness pressure injury L ischium. Knowles granulation at base of wound. Borders are macerated with Surrounding hyperpigmentation.Small amt non-odorous serous exudate noted.(L)0.7cm x (W)0.8cm. Skin hyperpigmentation from historical wound noted to Sacrum. Small sheared area noted to sacrococcygeal area.(L)0.4cm x (W)0.3cm.Small amt sanguineous exudate noted. Reabsorbed blister with semi-detached dry necrotic cap noted to web space of L thumb and L index fingers extending into palm of L hand. No odor or exudate noted. Skin assessed under tracheal collar and no erythema or evidence of Skin Breakdown noted. NO new skin concerns noted . Good hand hygiene provided to both hands. R hand contracted and fisted. Fingernails trimmed. Wound care provided along with Primary nurse. Wound Tx continued as ordered. New order obtained from to apply Betadine to wound L hand Daily. Tx done as ordered. L hand wrapped with kerlix weaving kerlix between fingers to separate fingers. Moisture Barrier applied to sacrum ,R ischium. Each site covered with Optifoam drsg. Both lower ext washed and moisturized. Cavilon Skin Barrier applied to both heels.Each heel covered with Optifoam drsgs. Pt positioned with pillows and both heels off-loaded with pillow. Pt wounds are resolving. Loose necrotic cap within web space of L index finger and L thumb easily removed with gentle friction. Base of wound is hypergranular with 10% necrosis. Borders are macerated. Application of Silver Nitrate to hypergranular base done. Cavilon Skin Barrier applied to borders . Good hand hygiene provided. Wound covered with Abd pad. L hand wrapped with Kerlix weaving Kerlix between digitsof L hand. Pressure injury L ischium resolving. Base iof wound is pale pink and dry with surrounding hyperpigmentation and scar from previous wound. Hyperpigmentation with historical scars noted to Sacrum and R ischium. Both heels are soft and blanchable. Skin Assessed under trach collar and no evidence of skin breakdown noted. Tx.Plan: Apply Betadine to wound L hand. Cover with Gauze and wrap with Kerlix Daily and prn. Cleanse L ischial wound with Saline. Apply Therahoney. Apply Moisture Barrier periwound. Cover with Optifoam drsgevery 3 days and prn. Apply Moisture Barrier Paste to R ischium and Sacrum. Cover each area with Optifoam drsg. Change every 3 days and prn. Apply Cavilon Skin Barrier to both heels. Cover each heel with Optifoam drsg. Change every 7 days and prn. Cleanse Blister Dorsal and palm of L hand with saline. Versatel One Silicone Contact Layer(Applied). Apply Silvasorb Gel. Wrap with Kerlix Gauze.Change every 7 days and prn. Apply Moisture Barrier to sacrum. Cover with Optifoam drsg. Change every 3 days and prn. APM/BELÉN Mattress overlay. Reposition at least every 2hours or as tolerated. Off-load heels with pillow. Nutritional optimization We will monitor follow with recommendations cont with above upon d/c wounds healing overall improving left hand wound almost resolved. 80% healed (2) Sepsis Assessment & Plan: IV abx as per ID trend labs improving wounds unlikely etiology likely respiratory imaging noted and okay abnormal lft's stable PICC on Abx in ICU for desaturation CXR with consolidation cont with frequent suctioning d/c planning g j via GI acute leukocytosis decompensation hypotensive on pressors pending c diff abx changed per ID daughter wants close attention to wounds and management to ensure healing Evidence of left lower lobe pneumonia, also previously demonstrated Gastrostomy in good position Mild diastasis of the rectus abdominis musculature again demonstrated Retrosacral decubitus changes, better depicted on prior exam which included the pelvis Small hiatal hernia with evidence of trace gastroesophageal reflux Discussed with GI. Recommend GJ family still pending decision transfuse prbc prn monitor h/h monitor bm LFTs improving trending down Findings: Previously demonstrated gastrostomy tube has been converted to a gastrojejunostomy. Gastrostomy balloon is in good position. The shaft of the jejunostomy portion coils in the upper gastric fundus, and the tip is in the proximal jejunum just beyond the ligament of Treitz. The distal esophagus is unremarkable. Contrast is seen within the colon. The visualized bowel demonstrates no significant distention. There is diastasis of the rectus abdominis tendon again demonstrated. The appendix is visualized, normal. The liver, gallbladder, bile ducts, pancreas, spleen, adrenals, right kidney are unremarkable. The left kidney demonstrates a large interpolar region cyst. No retroperitoneal or mesenteric mass or adenopathy. The included lung bases demonstrate groundglass opacities, right greater than left, and areas of scarring or atelectasis on the left. Previously demonstrated left lower lobe dense consolidation has improved The bones demonstrate a very slight superior endplate compression fracture deformity of the L3 vertebral body, also evident previously. Previously reported retrosacral decubitus changes are not included in the current imaging volume Impression: Interim conversion of gastrostomy to gastrojejunostomy, jejunostomy tube tip at the origin of the jejunum, just beyond the ligament of Treitz No acute abdominal abnormality Mild bilateral basilar pulmonary parenchymal groundglass opacities, right greater than left, nonspecific, could indicate atelectasis, edema, or inflammation. May also be in part due to motion artifact. There are also atelectatic changes or scarring on the left L3 vertebral body mild superior endplate compression fracture deformity, also demonstrated on prior January 2019 exam and therefore not acute. Incidental findings as noted, including rectus abdominis tendon diastasis, large left renal cyst (3) Feeding by G-tube Assessment & Plan: DAILY ESTIMATED NEEDS: Needs based on Pulmonary, wounds, bedbound/ 61kg adj 25-30 kcals/kg 0244-3236 total kcals 1.25-2 g protein/kg 76-122 g total protein 25-30 mL/kg 7469-8354 total fluid mLs NUTRITION DIAGNOSIS: * Increased kcal/prot needs R/T wound healing as evidenced by BL buttocks and sacral wound photos, refer to eval. * Swallowing difficulty R/T respiratory status as evidenced by pt on T-collar, s/p G-J conversion CURRENT TF:Glucerna 1.5 @ 50ml/hr x 24 hrs ENTERAL NUTRITION RECOMMENDATIONS: Glucerna 1.5 @ 50ml/hr x 24 hrs to provide 1200ml, 1800 kcal, 99g pro, 911ml free H2O - Maintain at current rate as tolerated to meet 100% est needs - HOB over 30 degrees - INCREASE water flush of 170ml q 6 hrs ADDITIONAL RECOMMENDATIONS: 1) RE-calibrate bedscale wt: fluctuating daily wts (108#-136# last 6 days) 2) Wound healing: Add Cristian 1pkt BID w/ continued good TF tolerance. 3) Increase water flushes, monitor for signs of water deficits 4) Monitor BGs closely, need for NISS -> now w/ improved BGs 5) Monitor for continued good TF tolerance 6) Monitor K : elev K on 03/25, s/p Kdur BID, now dc'ed. (4) Chronic vegetative state Assessment & Plan: incontinence of urine and stool. can soil dressings. nurses doing great job with monitoring and changing prn (5) Leukocytosis Walter Madera May 07, 2019 15:53
--- NOTE | 2019-05-07 16:57 | NUR ---
NURSE NOTES: PT VS stable, PT still has frothy white sputum from trach and clear secretions orally, frequent suctioning needed, will continue to monitor.
--- NOTE | 2019-05-07 18:52 | NUR ---
NURSE NOTES: Suctioning orally and via trach given, frothy sputum remains, will continue to monitor.
--- NOTE | 2019-05-07 19:49 | NUR ---
NURSE NOTES: Called PT daughter to informed about change in condition, informed PT daughter, PT was started on "medication to keep her BP up, minimal dose around [id number] today," additionally informed PT daughter that PT was given 1L NS bolus prior to being given medication to keep her BP up, informed her also that she did have a fever today of 101; that tylenol PRN was given. PT daughter asked what the latest temperature was, recalled temperature on bedside thermometer to show her axillary temperature of 98.3. PT daughter with male gentlemen at bedside shaving PT; advised her PT is on daily DVT prophylactic just to make PT daughter aware. SANTINO Leblanc and Luís, RN made aware.
--- NOTE | 2019-05-07 19:56 | NUR ---
HAND-OFF: Report and PT given to JEANNINE Staley.
--- NOTE | 2019-05-07 20:00 | NUR ---
NURSE NOTES: Received pt and report from JEANNINE Suggs. Patient obtunded, open eyes with voice. Sinus rhythm on the monitor. Shiley 6.0, receiving oxygen per T piece 28%, 5L. Pt's afebrile at this time 98.5F. VS stable. BP 96/49 currently on Levophed at 2mcg/min via Right upper arm PICC. With GJ tube. G tube connected to drainable bag per gravity. J tube receiving feeding of Vital AF 60ml/hr. Purewick in place. Head of bed elevated. Bed locked and in low position. Call light within reach. Bed alarm on. Daughter at bedside. Will continue to monitor.
--- NOTE | 2019-05-07 20:08 | General Progress Note ---
Assessment/Plan Status: stable, progressing Assessment/Plan: Assessment - Fever / leukocytosis / hypotension - ? pneumonia, ? line infection, ? C diff, ? 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 - Anemia with OB (-) stools - Resp failure, s/p Trach - dysphagia, s/p PEG --> GJ tube - OBS, vegetative obtunded unresponsive state, bedbound with contracted extremities, - h/o minor GJ tube site irritation - poor Prognosis Recommendations - cortez culture, check c diff, cxr, U/A, abx, ID f/u - daily sorbitol, and PRN sorbitol - Cristian BID - antibiotic ointment to GJT site PRN - aspiration precautions - elevate HOB - Vital AF 1.2 - check q 6 hour FS - transfuse to keep Hg > 7 - J tube feeds - G tube drain - IVF - check ESR --> elevated - further evaluation for autoimmune hepatitis (anti DNA, ASMA) - not candidate for immune suppression at this time Subjective Allergies: Coded Allergies: CODEINE (Verified Allergy, Unknown, HIVES, 09/15/09) Subjective above noted seen this am and d/w RN fever and frothy sputum noted labs and blood cultures ordered subsequently became hypotensive Objective Last 24 Hour Vital Signs Date Time Temp Pulse Resp B/P (MAP) Pulse Ox O2 Delivery O2 Flow Rate FiO2 05/07/19 19:22 100 24 100 T-Piece 5.0 28 101 25 100 05/07/19 19:22 100 T-Piece 5.0 28 05/07/19 19:00 113/50 05/07/19 18:00 89/44 05/07/19 18:00 95 21 89/44 (59) 98 05/07/19 17:30 96 22 106/51 (69) 100 05/07/19 17:00 99 23 114/56 (75) 99 05/07/19 17:00 114/56 05/07/19 16:00 T-piece 5.0 T-piece 5.0 T-piece 5.0 T-piece 5.0 05/07/19 16:00 100 05/07/19 16:00 97.9 99 22 96/59 (71) 100 05/07/19 16:00 5.0 28 05/07/19 16:00 96/59 05/07/19 15:39 99 24 100 T-Piece 5.0 28 97 26 100 05/07/19 15:30 100 23 121/59 (79) 100 05/07/19 15:00 121/59 05/07/19 15:00 101 23 111/60 (77) 100 05/07/19 14:30 104 25 112/55 (74) 100 05/07/19 14:00 108 21 90/48 (62) 98 05/07/19 14:00 112/55 05/07/19 13:30 111 23 137/60 (85) 99 05/07/19 13:00 102 22 87/22 (43) 100 05/07/19 13:00 137/60 05/07/19 12:42 99 T-Piece 5.0 28 05/07/19 12:30 105 22 101/41 (61) 100 05/07/19 12:24 91/31 05/07/19 12:00 5.0 28 05/07/19 12:00 109 05/07/19 12:00 109 25 113/29 (57) 100 05/07/19 12:00 T-piece 5.0 T-piece 5.0 T-piece 5.0 T-piece 5.0 05/07/19 11:30 110 23 107/45 (65) 100 05/07/19 11:00 99.3 117 25 85/37 (53) 97 05/07/19 11:00 99.3 05/07/19 10:00 125 35 103/24 (50) 94 05/07/19 09:43 101.0 05/07/19 09:03 126 26 118/51 (73) 97 05/07/19 09:00 140 22 111/24 (53) 96 05/07/19 08:00 T-piece 5.0 T-piece 5.0 T-piece 5.0 T-piece 5.0 05/07/19 08:00 101.0 120 27 86/45 (59) 98 05/07/19 08:00 5.0 28 05/07/19 08:00 121 05/07/19 07:21 100 T-Piece 5.0 28 05/07/19 07:00 119 26 132/46 (74) 99 05/07/19 06:00 105 25 122/39 (66) 98 05/07/19 05:00 99 23 137/37 (70) 99 05/07/19 04:00 T-piece 5.0 T-piece 5.0 T-piece 5.0 T-piece 5.0 05/07/19 04:00 98.0 102 21 132/51 (78) 95 05/07/19 04:00 5.0 28 05/07/19 03:32 100 22 100 T-Piece 5.0 28 101 24 98 05/07/19 03:05 102 05/07/19 03:00 106 22 145/30 (68) 98 05/07/19 02:00 96 21 132/50 (77) 98 05/07/19 01:42 98 T-Piece 5.0 28 05/07/19 01:00 98 25 138/34 (68) 99 05/07/19 00:00 98.2 97 27 149/58 (88) 96 05/07/19 00:00 T-piece 5.0 T-piece 5.0 T-piece 5.0 T-piece 5.0 05/06/19 23:08 94 21 100 T-Piece 5.0 28 93 23 98 05/06/19 23:06 94 05/06/19 23:00 96 21 123/19 (53) 99 05/06/19 22:00 93 21 111/43 (65) 99 05/06/19 21:00 99 24 135/63 (87) 98 Intake and Output 05/06/19 05/07/19 19:00 07:00 Intake Total 2035 ml 2054.17 ml Output Total 600 ml 1200 ml Balance 1435 ml 854.17 ml Free Water 300 ml 300 ml IV Total 655 ml 584.17 ml Tube Feeding 630 ml 720 ml Other 450 ml 450 ml Output Urine Total 600 ml Gastric Drainage Total 600 ml 600 ml # Bowel Movements 2 Laboratory Tests 05/07/19 04:00: Total Bilirubin 0.3, Direct Bilirubin < 0.1, Aspartate Amino Transf (AST/SGOT) 37, Alanine Aminotransferase (ALT/SGPT) 83H, Alkaline Phosphatase 163H, Total Protein 8.5H, Albumin 2.9L 05/07/19 10:45: Total Bilirubin 0.5, Aspartate Amino Transf (AST/SGOT) 92H, Alanine Aminotransferase (ALT/SGPT) 140H, Alkaline Phosphatase 222H, Total Protein 8.1, Albumin 2.8L, White Blood Count 25.9*H, Red Blood Count 3.10L, Hemoglobin 9.2L, Hematocrit 27.2L, Mean Corpuscular Volume 88, Mean Corpuscular Hemoglobin 29.7, Mean Corpuscular Hemoglobin Concent 33.8, Red Cell Distribution Width 13.7, Platelet Count 181, Mean Platelet Volume 5.1L, Neutrophils (%) (Auto) , Lymphocytes (%) (Auto) , Monocytes (%) (Auto) , Eosinophils (%) (Auto) , Basophils (%) (Auto) , Differential Total Cells Counted 100, Neutrophils % ( Manual) 91H, Lymphocytes % (Manual) 1L, Monocytes % (Manual) 2, Eosinophils % ( Manual) 1, Basophils % (Manual) 0, Band Neutrophils 5, Platelet Estimate Adequate, Platelet Morphology Normal, Hypochromasia 2+, Anisocytosis 1+, Spherocytes 1+, Sodium Level 139, Potassium Level 3.9, Chloride Level 98, Carbon Dioxide Level 30, Anion Gap 11, Blood Urea Nitrogen 66H, Creatinine 1.2, Estimat Glomerular Filtration Rate , Glucose Level 161H, Lactic Acid Level 1.70 , Calcium Level 9.1, Globulin 5.3, Albumin/Globulin Ratio 0.5L Height (Feet): 5 Height (Inches): 3.00 Weight (Pounds): 132 Objective Debilitated AA woman non-verbal, obtunded NCAT (+) trach coarse BS RR obese abd, (+) GJT no edema (+) contractured extremities Celio Vaughan MD May 07, 2019 20:08
--- NOTE | 2019-05-07 20:14 | General Progress Note ---
Assessment/Plan Problem List: (1) Seizure ICD Codes: R56.9 - Unspecified convulsions SNOMED: 04486079 (2) Anemia ICD Codes: D64.9 - Anemia, unspecified SNOMED: 082482578 Qualifiers: Qualified Codes: D64.9 - Anemia, unspecified (3) Sepsis ICD Codes: A41.9 - Sepsis, unspecified organism SNOMED: 81379230, 109384837 Qualifiers: Qualified Codes: A41.9 - Sepsis, unspecified organism (4) Respiratory failure with hypoxia ICD Codes: J96.91 - Respiratory failure, unspecified with hypoxia SNOMED: 15011285535116629 Qualifiers: Qualified Codes: J96.21 - Acute and chronic respiratory failure with hypoxia (5) HCAP (healthcare-associated pneumonia) ICD Codes: J18.9 - Pneumonia, unspecified organism SNOMED: 500076626, 867046047 (6) Sacral decubitus ulcer ICD Codes: L89.159 - Pressure ulcer of sacral region, unspecified stage SNOMED: 505740739 (7) HTN (hypertension) ICD Codes: I10 - Essential (primary) hypertension SNOMED: 83261466 (8) Chronic vegetative state ICD Codes: R40.3 - Persistent vegetative state SNOMED: 46937042 (9) Chronic respiratory failure ICD Codes: J96.10 - Chronic respiratory failure, unspecified whether with hypoxia or hypercapnia SNOMED: 33622138 (10) Limited mobility ICD Codes: Z74.09 - Other reduced mobility SNOMED: 0160972 Status: stable, progressing Assessment/Plan: cortez culture iv abx per id follow up cxr ivf adjusted vent as needed resp rx suctioning j tube feeds g port to gravity skin care sz rx monitor wbc and LFTss bowel regime Subjective ROS Limited/Unobtainable: No Constitutional: Reports: malaise, weakness HEENT: Reports: no symptoms Cardiovascular: Reports: no symptoms Respiratory: Reports: shortness of breath, sputum Gastrointestinal/Abdominal: Reports: difficulty swallowing Genitourinary: Reports: no symptoms Neurologic/Psychiatric: Reports: pre-existing deficit, seizure Endocrine: Reports: no symptoms Hematologic/Lymphatic: Reports: anemia Allergies: Coded Allergies: CODEINE (Verified Allergy, Unknown, HIVES, 09/15/09) All Systems: reviewed and negative except above Subjective wbx to 26k. hypotensive with fevers. no reports of bleeding. tolerating feeds, no vomiting. minimal secretions. no szs Objective Last 24 Hour Vital Signs Date Time Temp Pulse Resp B/P (MAP) Pulse Ox O2 Delivery O2 Flow Rate FiO2 05/07/19 19:22 100 24 100 T-Piece 5.0 28 101 25 100 05/07/19 19:22 100 T-Piece 5.0 28 05/07/19 19:00 113/50 05/07/19 18:00 89/44 05/07/19 18:00 95 21 89/44 (59) 98 05/07/19 17:30 96 22 106/51 (69) 100 05/07/19 17:00 99 23 114/56 (75) 99 05/07/19 17:00 114/56 05/07/19 16:00 T-piece 5.0 T-piece 5.0 T-piece 5.0 T-piece 5.0 05/07/19 16:00 100 05/07/19 16:00 97.9 99 22 96/59 (71) 100 05/07/19 16:00 5.0 28 05/07/19 16:00 96/59 05/07/19 15:39 99 24 100 T-Piece 5.0 28 97 26 100 05/07/19 15:30 100 23 121/59 (79) 100 05/07/19 15:00 121/59 05/07/19 15:00 101 23 111/60 (77) 100 05/07/19 14:30 104 25 112/55 (74) 100 05/07/19 14:00 108 21 90/48 (62) 98 05/07/19 14:00 112/55 05/07/19 13:30 111 23 137/60 (85) 99 05/07/19 13:00 102 22 87/22 (43) 100 05/07/19 13:00 137/60 05/07/19 12:42 99 T-Piece 5.0 28 05/07/19 12:30 105 22 101/41 (61) 100 05/07/19 12:24 91/31 05/07/19 12:00 5.0 28 05/07/19 12:00 109 05/07/19 12:00 109 25 113/29 (57) 100 05/07/19 12:00 T-piece 5.0 T-piece 5.0 T-piece 5.0 T-piece 5.0 05/07/19 11:30 110 23 107/45 (65) 100 05/07/19 11:00 99.3 117 25 85/37 (53) 97 05/07/19 11:00 99.3 05/07/19 10:00 125 35 103/24 (50) 94 05/07/19 09:43 101.0 05/07/19 09:03 126 26 118/51 (73) 97 05/07/19 09:00 140 22 111/24 (53) 96 05/07/19 08:00 T-piece 5.0 T-piece 5.0 T-piece 5.0 T-piece 5.0 05/07/19 08:00 101.0 120 27 86/45 (59) 98 05/07/19 08:00 5.0 28 05/07/19 08:00 121 05/07/19 07:21 100 T-Piece 5.0 28 05/07/19 07:00 119 26 132/46 (74) 99 05/07/19 06:00 105 25 122/39 (66) 98 05/07/19 05:00 99 23 137/37 (70) 99 05/07/19 04:00 T-piece 5.0 T-piece 5.0 T-piece 5.0 T-piece 5.0 05/07/19 04:00 98.0 102 21 132/51 (78) 95 05/07/19 04:00 5.0 28 05/07/19 03:32 100 22 100 T-Piece 5.0 28 101 24 98 05/07/19 03:05 102 05/07/19 03:00 106 22 145/30 (68) 98 05/07/19 02:00 96 21 132/50 (77) 98 05/07/19 01:42 98 T-Piece 5.0 28 05/07/19 01:00 98 25 138/34 (68) 99 05/07/19 00:00 98.2 97 27 149/58 (88) 96 05/07/19 00:00 T-piece 5.0 T-piece 5.0 T-piece 5.0 T-piece 5.0 05/06/19 23:08 94 21 100 T-Piece 5.0 28 93 23 98 05/06/19 23:06 94 05/06/19 23:00 96 21 123/19 (53) 99 05/06/19 22:00 93 21 111/43 (65) 99 05/06/19 21:00 99 24 135/63 (87) 98 Intake and Output 05/06/19 05/07/19 18:59 06:59 Intake Total 2035 ml 2054.17 ml Output Total 850 ml 1200 ml Balance 1185 ml 854.17 ml Free Water 300 ml 300 ml IV Total 655 ml 584.17 ml Tube Feeding 630 ml 720 ml Other 450 ml 450 ml Output Urine Total 600 ml Gastric Drainage Total 850 ml 600 ml # Bowel Movements 2 Laboratory Tests 05/07/19 04:00: Total Bilirubin 0.3, Direct Bilirubin < 0.1, Aspartate Amino Transf (AST/SGOT) 37, Alanine Aminotransferase (ALT/SGPT) 83H, Alkaline Phosphatase 163H, Total Protein 8.5H, Albumin 2.9L 05/07/19 10:45: Total Bilirubin 0.5, Aspartate Amino Transf (AST/SGOT) 92H, Alanine Aminotransferase (ALT/SGPT) 140H, Alkaline Phosphatase 222H, Total Protein 8.1, Albumin 2.8L, White Blood Count 25.9*H, Red Blood Count 3.10L, Hemoglobin 9.2L, Hematocrit 27.2L, Mean Corpuscular Volume 88, Mean Corpuscular Hemoglobin 29.7, Mean Corpuscular Hemoglobin Concent 33.8, Red Cell Distribution Width 13.7, Platelet Count 181, Mean Platelet Volume 5.1L, Neutrophils (%) (Auto) , Lymphocytes (%) (Auto) , Monocytes (%) (Auto) , Eosinophils (%) (Auto) , Basophils (%) (Auto) , Differential Total Cells Counted 100, Neutrophils % ( Manual) 91H, Lymphocytes % (Manual) 1L, Monocytes % (Manual) 2, Eosinophils % ( Manual) 1, Basophils % (Manual) 0, Band Neutrophils 5, Platelet Estimate Adequate, Platelet Morphology Normal, Hypochromasia 2+, Anisocytosis 1+, Spherocytes 1+, Sodium Level 139, Potassium Level 3.9, Chloride Level 98, Carbon Dioxide Level 30, Anion Gap 11, Blood Urea Nitrogen 66H, Creatinine 1.2, Estimat Glomerular Filtration Rate , Glucose Level 161H, Lactic Acid Level 1.70 , Calcium Level 9.1, Globulin 5.3, Albumin/Globulin Ratio 0.5L Height (Feet): 5 Height (Inches): 3.00 Weight (Pounds): 132 Objective General Appearance: WD/WN, confused. on trach collar Neck: supple Cardiovascular: normal rate, regular rhythm Respiratory/Chest: chest wall non-tender, rhonchi - bilaterally(minimal) Abdomen: normal bowel sounds, non tender, soft, no organomegaly Edema: no edema noted Arm (L), no edema noted Arm (R), no edema noted Leg (L), no edema noted Leg (R), no edema noted Pedal (L), no edema noted Pedal (R), no edema noted Generalized Neurologic: disoriented, unresponsive, aphasia Irvin Beltrán MD May 07, 2019 20:14
[2019-05-07] MEDS: Dyna-Hex 2% Top Sol 2oz TOPIC SCH (20:54)
[2019-05-07] MEDS: D5NS 1,000 ML IV SCH (20:55)
--- NOTE | 2019-05-07 22:00 | NUR ---
NURSE NOTES: Pt's resting in bed, in no acute distress. VS stable. Levophed is turned off at this time. Will continue to monitor.
[2019-05-08] VITALS (25 sets, daily range): BP systolic 98–159; BP diastolic 44–121
--- NOTE | 2019-05-08 | NUR ---
NURSE NOTES: Pt's resting in bed, in no acute distress. VS stable. Afebrile. Will continue to monitor.
--- NOTE | 2019-05-08 02:00 | NUR ---
NURSE NOTES: Pt's resting in bed, asleep with eyes closed. VS stable. Will continue to monitor.
[2019-05-08] MEDS: Albuterol/Ipratropium 3ml neb HHN SCH ×6 (02:11→23:28)
[2019-05-08 03:22] LABS: APPEARANCE,URINE CLEAR; BILIRUBIN, URINE NEGATIVE (NEGATIVE); GLUCOSE, URINE (UA) NEGATIVE (NEGATIVE); KETONES,URINE NEGATIVE (NEGATIVE); LEUKOCYTE ESTERASE ,URINE 1+ (NEGATIVE); NITRITE,URINE NEGATIVE (NEGATIVE); PH,URINE 6.5 (4.5-8.0); PROTEIN,URINE 3+ (NEGATIVE); UROBILINOGEN,URINE NORMAL MG/DL (0.0-1.0)
[2019-05-08 03:25] LABS: COLOR,URINE YELLOW
--- NOTE | 2019-05-08 04:00 | NUR ---
NURSE NOTES: Pt's asleep in bed with eyes closed. VS stable. SR on cardiothoracic physiotherapist. Afebrile. Will continue to monitor.
[2019-05-08 05:14] LABS: HEMATOCRIT 22.5 % (37.0-47.0); HEMOGLOBIN 7.6 G/DL (12.0-16.0); MEAN CORPUSCULAR VOLUME 89 FL (80-99); PLATELET COUNT 149 K/UL (150-450); RED BLOOD COUNT 2.53 M/UL (4.20-5.40); RED CELL DISTRIBUTION WIDTH 13.8 % (11.6-14.8); WHITE BLOOD COUNT 21.6 K/UL (4.8-10.8)
[2019-05-08 05:49] LABS: AMYLASE 145 U/L (25-115)
[2019-05-08 05:52] LABS: ALANINE AMINOTRANSFERASE 140 U/L (12-78); ALBUMIN 2.4 G/DL (3.4-5.0); ALBUMIN/GLOBULIN RATIO 0.5 (1.0-2.7); ALKALINE PHOSPHATASE 197 U/L (46-116); ANION GAP 6 mmol/L (5-15); ASPARTATE AMINO TRANSFERASE 81 U/L (15-37); BILIRUBIN,TOTAL 0.3 MG/DL (0.2-1.0); BLOOD UREA NITROGEN 56 mg/dL (7-18); CALCIUM 8.5 MG/DL (8.5-10.1); CARBON DIOXIDE 32 MMOL/L (21-32); CHLORIDE 102 MMOL/L (98-107); CREATININE 0.9 MG/DL (0.55-1.30); POTASSIUM 3.6 MMOL/L (3.5-5.1); SODIUM 140 MMOL/L (136-145)
--- NOTE | 2019-05-08 06:00 | NUR ---
NURSE NOTES: Pt's resting in bed, asleep with eyes closed, VS stable. Will continue to monitor.
[2019-05-08] MEDS: D5NS 1,000 ML IV SCH ×2 (06:35→16:11)
--- NOTE | 2019-05-08 07:30 | NUR ---
HAND-OFF: Report given to JEANNINE Pederson.
--- NOTE | 2019-05-08 07:33 | General Progress Note ---
Assessment/Plan Problem List: (1) Seizure ICD Codes: R56.9 - Unspecified convulsions SNOMED: 78084413 (2) Anemia ICD Codes: D64.9 - Anemia, unspecified SNOMED: 747290663 Qualifiers: Qualified Codes: D64.9 - Anemia, unspecified (3) Sepsis ICD Codes: A41.9 - Sepsis, unspecified organism SNOMED: 63348337, 643725596 Qualifiers: Qualified Codes: A41.9 - Sepsis, unspecified organism (4) Respiratory failure with hypoxia ICD Codes: J96.91 - Respiratory failure, unspecified with hypoxia SNOMED: 30575895416763808 Qualifiers: Qualified Codes: J96.21 - Acute and chronic respiratory failure with hypoxia (5) HCAP (healthcare-associated pneumonia) ICD Codes: J18.9 - Pneumonia, unspecified organism SNOMED: 471918299, 292006416 (6) Sacral decubitus ulcer ICD Codes: L89.159 - Pressure ulcer of sacral region, unspecified stage SNOMED: 906414565 (7) HTN (hypertension) ICD Codes: I10 - Essential (primary) hypertension SNOMED: 72871174 (8) Chronic vegetative state ICD Codes: R40.3 - Persistent vegetative state SNOMED: 00653401 (9) Chronic respiratory failure ICD Codes: J96.10 - Chronic respiratory failure, unspecified whether with hypoxia or hypercapnia SNOMED: 08374093 (10) Limited mobility ICD Codes: Z74.09 - Other reduced mobility SNOMED: 8235811 Status: stable, progressing Assessment/Plan: follow up cultures iv abx per id ivf peripheral iv. dc picc if able to get peripheral. may need transfusion- await repeat cbc vent as needed resp rx suctioning j tube feeds g port to gravity skin care sz rx bowel regime Subjective ROS Limited/Unobtainable: Yes Constitutional: Reports: malaise, weakness HEENT: Reports: no symptoms Cardiovascular: Reports: no symptoms Respiratory: Reports: cough, shortness of breath, sputum Gastrointestinal/Abdominal: Reports: difficulty swallowing Genitourinary: Reports: no symptoms Neurologic/Psychiatric: Reports: pre-existing deficit, seizure Endocrine: Reports: no symptoms Hematologic/Lymphatic: Reports: no symptoms Allergies: Coded Allergies: CODEINE (Verified Allergy, Unknown, HIVES, 09/15/09) All Systems: reviewed and negative except above Subjective wbx to 21k. hypotension better. no reports of bleeding. decreased h/h noted. tolerating feeds, no vomiting. minimal secretions. no szs Objective Last 24 Hour Vital Signs Date Time Temp Pulse Resp B/P (MAP) Pulse Ox O2 Delivery O2 Flow Rate FiO2 05/08/19 07:02 90 22 100 T-Piece 5.0 28 95 25 96 05/08/19 07:00 97 25 124/47 (72) 98 05/08/19 06:53 96 T-Piece 5.0 28 05/08/19 06:00 98.3 88 22 105/46 (65) 99 05/08/19 05:00 91 25 126/48 (74) 98 05/08/19 04:00 93 22 129/50 (76) 100 05/08/19 04:00 5.0 28 05/08/19 04:00 T-piece 5.0 T-piece 5.0 T-piece 5.0 T-piece 5.0 05/08/19 04:00 96 05/08/19 03:00 88 22 141/54 (83) 98 05/08/19 02:12 85 21 100 T-Piece 5.0 28 86 22 98 05/08/19 02:00 88 22 98/44 (62) 98 05/08/19 01:00 92 21 134/53 (80) 100 05/08/19 00:32 100 T-Piece 5.0 28 05/08/19 00:30 98 24 150/52 (84) 100 05/08/19 00:00 T-piece 5.0 T-piece 5.0 T-piece 5.0 T-piece 5.0 05/08/19 00:00 98.5 94 20 125/53 (77) 100 05/08/19 00:00 95 05/08/19 00:00 5.0 28 05/07/19 23:30 94 20 136/52 (80) 100 05/07/19 23:00 104 26 143/55 (84) 100 05/07/19 22:30 105 21 128/50 (76) 100 05/07/19 22:10 101 21 100 T-Piece 5.0 28 98 19 100 05/07/19 22:00 121/48 05/07/19 22:00 102 24 125/52 (76) 100 05/07/19 21:30 97 22 127/54 (78) 100 05/07/19 21:00 95 23 109/47 (67) 97 05/07/19 21:00 127/54 05/07/19 20:30 96 21 96/49 (65) 97 05/07/19 20:00 96 05/07/19 20:00 5.0 28 05/07/19 20:00 96/49 05/07/19 20:00 T-piece 5.0 T-piece 5.0 T-piece 5.0 T-piece 5.0 05/07/19 20:00 97 21 99/48 (65) 97 05/07/19 19:30 97 22 113/50 (71) 99 05/07/19 19:22 100 24 100 T-Piece 5.0 28 101 25 100 05/07/19 19:22 100 T-Piece 5.0 28 05/07/19 19:00 98.4 97 21 113/50 (71) 100 05/07/19 19:00 113/50 05/07/19 18:00 89/44 05/07/19 18:00 95 21 89/44 (59) 98 05/07/19 17:30 96 22 106/51 (69) 100 05/07/19 17:00 99 23 114/56 (75) 99 05/07/19 17:00 114/56 05/07/19 16:00 T-piece 5.0 T-piece 5.0 T-piece 5.0 T-piece 5.0 05/07/19 16:00 100 05/07/19 16:00 97.9 99 22 96/59 (71) 100 05/07/19 16:00 5.0 28 05/07/19 16:00 96/59 05/07/19 15:39 99 24 100 T-Piece 5.0 28 97 26 100 05/07/19 15:30 100 23 121/59 (79) 100 05/07/19 15:00 121/59 05/07/19 15:00 101 23 111/60 (77) 100 05/07/19 14:30 104 25 112/55 (74) 100 05/07/19 14:00 108 21 90/48 (62) 98 05/07/19 14:00 112/55 05/07/19 13:30 111 23 137/60 (85) 99 05/07/19 13:00 102 22 87/22 (43) 100 05/07/19 13:00 137/60 05/07/19 12:42 99 T-Piece 5.0 28 05/07/19 12:30 105 22 101/41 (61) 100 05/07/19 12:24 91/31 05/07/19 12:00 5.0 28 05/07/19 12:00 109 05/07/19 12:00 109 25 113/29 (57) 100 05/07/19 12:00 T-piece 5.0 T-piece 5.0 T-piece 5.0 T-piece 5.0 05/07/19 11:30 110 23 107/45 (65) 100 05/07/19 11:00 99.3 117 25 85/37 (53) 97 05/07/19 11:00 99.3 05/07/19 10:00 125 35 103/24 (50) 94 05/07/19 09:43 101.0 05/07/19 09:03 126 26 118/51 (73) 97 05/07/19 09:00 140 22 111/24 (53) 96 05/07/19 08:00 T-piece 5.0 T-piece 5.0 T-piece 5.0 T-piece 5.0 05/07/19 08:00 101.0 120 27 86/45 (59) 98 05/07/19 08:00 5.0 28 05/07/19 08:00 121 Intake and Output 05/07/19 05/08/19 19:00 07:00 Intake Total 1704.500 ml 2492.5 ml Balance 1704.500 ml 2492.5 ml Free Water 150 ml 300 ml IV Total 964.500 ml 1022.5 ml Tube Feeding 390 ml 720 ml Other 200 ml 450 ml # Bowel Movements 2 1 Laboratory Tests 05/07/19 10:45: White Blood Count 25.9*H, Red Blood Count 3.10L, Hemoglobin 9.2L, Hematocrit 27.2L, Mean Corpuscular Volume 88, Mean Corpuscular Hemoglobin 29.7, Mean Corpuscular Hemoglobin Concent 33.8, Red Cell Distribution Width 13.7, Platelet Count 181, Mean Platelet Volume 5.1L, Neutrophils (%) (Auto) , Lymphocytes (%) ( Auto) , Monocytes (%) (Auto) , Eosinophils (%) (Auto) , Basophils (%) (Auto) , Differential Total Cells Counted 100, Neutrophils % (Manual) 91H, Lymphocytes % (Manual) 1L, Monocytes % (Manual) 2, Eosinophils % (Manual) 1, Basophils % ( Manual) 0, Band Neutrophils 5, Platelet Estimate Adequate, Platelet Morphology Normal, Hypochromasia 2+, Anisocytosis 1+, Spherocytes 1+, Sodium Level 139, Potassium Level 3.9, Chloride Level 98, Carbon Dioxide Level 30, Anion Gap 11, Blood Urea Nitrogen 66H, Creatinine 1.2, Estimat Glomerular Filtration Rate , Glucose Level 161H, Lactic Acid Level 1.70, Calcium Level 9.1, Total Bilirubin 0.5, Aspartate Amino Transf (AST/SGOT) 92H, Alanine Aminotransferase (ALT/SGPT) 140H, Alkaline Phosphatase 222H, Total Protein 8.1, Albumin 2.8L, Globulin 5.3, Albumin/Globulin Ratio 0.5L 05/08/19 03:10: Urine Color Yellow, Urine Appearance Clear, Urine pH 6.5, Urine Specific [place] 1.010, Urine Protein 3+H, Urine Glucose (UA) Negative, Urine Ketones Negative, Urine Blood 3+H, Urine Nitrite Negative, Urine Bilirubin Negative, Urine Urobilinogen Normal, Urine Leukocyte Esterase 1+H, Urine RBC 5-10H, Urine WBC 0-2, Urine Squamous Epithelial Cells Few, Urine Bacteria Few 05/08/19 04:00: White Blood Count 21.6H, Red Blood Count 2.53L, Hemoglobin 7.6L, Hematocrit 22.5L, Mean Corpuscular Volume 89, Mean Corpuscular Hemoglobin 30.2, Mean Corpuscular Hemoglobin Concent 34.0, Red Cell Distribution Width 13.8, Platelet Count 149L, Mean Platelet Volume 6.2L, Neutrophils (%) (Auto) , Lymphocytes (%) (Auto) , Monocytes (%) (Auto) , Eosinophils (%) (Auto) , Basophils (%) (Auto) , Neutrophils % (Manual) [Pending], Lymphocytes % (Manual) [Pending], Platelet Estimate [Pending], Platelet Morphology [Pending], Sodium Level 140, Potassium Level 3.6, Chloride Level 102, Carbon Dioxide Level 32, Anion Gap 6, Blood Urea Nitrogen 56H, Creatinine 0.9, Estimat Glomerular Filtration Rate , Glucose Level 189H, Calcium Level 8.5, Total Bilirubin 0.3, Aspartate Amino Transf (AST/ SGOT) 81H, Alanine Aminotransferase (ALT/SGPT) 140H, Alkaline Phosphatase 197H, Total Protein 7.4, Albumin 2.4L, Globulin 5.0, Albumin/Globulin Ratio 0.5L, Erythrocyte Sedimentation Rate 136H, Prothrombin Time 10.3, Prothromb Time International Ratio 1.0, Activated Partial Thromboplast Time 33, Phosphorus Level 2.0L, Magnesium Level 2.0, C-Reactive Protein, Quantitative 22.7H, Amylase Level 145H, Lipase 259 Height (Feet): 5 Height (Inches): 3.00 Weight (Pounds): 130 Objective General Appearance: WD/WN, confused. on trach collar Neck: supple Cardiovascular: normal rate, regular rhythm Respiratory/Chest: chest wall non-tender, rhonchi - bilaterally(minimal) Abdomen: normal bowel sounds, non tender, soft, no organomegaly Edema: no edema noted Arm (L), no edema noted Arm (R), no edema noted Leg (L), no edema noted Leg (R), no edema noted Pedal (L), no edema noted Pedal (R), no edema noted Generalized Neurologic: disoriented, unresponsive, aphasia Irvin Beltrán MD May 08, 2019 07:33
[2019-05-08 08:36] LABS: HEMATOCRIT 24.9 % (37.0-47.0); HEMOGLOBIN 8.4 G/DL (12.0-16.0); MEAN CORPUSCULAR VOLUME 88 FL (80-99); PLATELET COUNT 159 K/UL (150-450); RED BLOOD COUNT 2.81 M/UL (4.20-5.40); WHITE BLOOD COUNT 18.5 K/UL (4.8-10.8)
--- NOTE | 2019-05-08 08:45 | NUR ---
NURSE NOTES: Dr. Cortez aware of phosphorus level of 2.0, he placed orders to replace with 2 15 MM of phosphate. no further orders given.
[2019-05-08] MEDS: Heparin 5000 units/ml inj SUBQ SCH ×2 (09:00→21:16)
--- NOTE | 2019-05-08 09:11 | NUR ---
RADIOLOGY DEPT., ABDOMEN X-RAY COMPLETED.-P.DYE
[2019-05-08] MEDS: Sorbitol Solution UD 30ml GT SCH (09:28)
[2019-05-08] MEDS: levETIRAcetam 500mg/5ml Liquid GT SCH ×2 (09:28→20:55)
[2019-05-08] MEDS: Cefepime HCl 2 GM in D5W 55 ML IVPB SCH (09:29)
--- NOTE | 2019-05-08 10:02 | Infectious Diseases Prog Note ---
Assessment/Plan Assessment/Plan antibiotics : vancomycin iv, cefepime A 1. citrobacter pneumonia 2. respiratory failure 3. hypertension 4. CVA 5. dementia 6. sacral decubitus ulcer 7. rectal VRE colonization 8. leucocytosis improving 9. shock P 1. continue cefepime 2 more days 2. continue iv vancomycin 3. blood culture 4. UA and urine culture 5. will follow up cultures Subjective ROS Limited/Unobtainable: Yes Allergies: Coded Allergies: CODEINE (Verified Allergy, Unknown, HIVES, 09/15/09) Objective Vital Signs Last 24 Hour Vital Signs Date Time Temp Pulse Resp B/P (MAP) Pulse Ox O2 Delivery O2 Flow Rate FiO2 05/08/19 09:00 90 22 99/61 (74) 100 05/08/19 08:00 T-piece 5.0 T-piece 5.0 T-piece 5.0 T-piece 5.0 05/08/19 08:00 98.3 93 25 121/48 (72) 95 05/08/19 08:00 5.0 28 05/08/19 07:02 90 22 100 T-Piece 5.0 28 95 25 96 05/08/19 07:00 97 25 124/47 (72) 98 05/08/19 06:53 96 T-Piece 5.0 28 05/08/19 06:00 98.3 88 22 105/46 (65) 99 05/08/19 05:00 91 25 126/48 (74) 98 05/08/19 04:00 93 22 129/50 (76) 100 05/08/19 04:00 5.0 28 05/08/19 04:00 T-piece 5.0 T-piece 5.0 T-piece 5.0 T-piece 5.0 05/08/19 04:00 96 05/08/19 03:00 88 22 141/54 (83) 98 05/08/19 02:12 85 21 100 T-Piece 5.0 28 86 22 98 05/08/19 02:00 88 22 98/44 (62) 98 05/08/19 01:00 92 21 134/53 (80) 100 05/08/19 00:32 100 T-Piece 5.0 28 05/08/19 00:30 98 24 150/52 (84) 100 05/08/19 00:00 T-piece 5.0 T-piece 5.0 T-piece 5.0 T-piece 5.0 05/08/19 00:00 98.5 94 20 125/53 (77) 100 05/08/19 00:00 95 05/08/19 00:00 5.0 28 05/07/19 23:30 94 20 136/52 (80) 100 05/07/19 23:00 104 26 143/55 (84) 100 05/07/19 22:30 105 21 128/50 (76) 100 05/07/19 22:10 101 21 100 T-Piece 5.0 28 98 19 100 05/07/19 22:00 121/48 05/07/19 22:00 102 24 125/52 (76) 100 05/07/19 21:30 97 22 127/54 (78) 100 05/07/19 21:00 95 23 109/47 (67) 97 05/07/19 21:00 127/54 05/07/19 20:30 96 21 96/49 (65) 97 05/07/19 20:00 96 05/07/19 20:00 5.0 28 05/07/19 20:00 96/49 05/07/19 20:00 T-piece 5.0 T-piece 5.0 T-piece 5.0 T-piece 5.0 05/07/19 20:00 97 21 99/48 (65) 97 05/07/19 19:30 97 22 113/50 (71) 99 05/07/19 19:22 100 24 100 T-Piece 5.0 28 101 25 100 05/07/19 19:22 100 T-Piece 5.0 28 05/07/19 19:00 98.4 97 21 113/50 (71) 100 05/07/19 19:00 113/50 05/07/19 18:00 89/44 05/07/19 18:00 95 21 89/44 (59) 98 05/07/19 17:30 96 22 106/51 (69) 100 05/07/19 17:00 99 23 114/56 (75) 99 05/07/19 17:00 114/56 05/07/19 16:00 T-piece 5.0 T-piece 5.0 T-piece 5.0 T-piece 5.0 05/07/19 16:00 100 2/6/20 16:00 97.9 99 22 96/59 (71) 100 05/07/19 16:00 5.0 28 05/07/19 16:00 96/59 05/07/19 15:39 99 24 100 T-Piece 5.0 28 97 26 100 05/07/19 15:30 100 23 121/59 (79) 100 05/07/19 15:00 121/59 05/07/19 15:00 101 23 111/60 (77) 100 05/07/19 14:30 104 25 112/55 (74) 100 05/07/19 14:00 108 21 90/48 (62) 98 05/07/19 14:00 112/55 05/07/19 13:30 111 23 137/60 (85) 99 05/07/19 13:00 102 22 87/22 (43) 100 05/07/19 13:00 137/60 05/07/19 12:42 99 T-Piece 5.0 28 05/07/19 12:30 105 22 101/41 (61) 100 05/07/19 12:24 91/31 05/07/19 12:00 5.0 28 05/07/19 12:00 109 05/07/19 12:00 109 25 113/29 (57) 100 05/07/19 12:00 T-piece 5.0 T-piece 5.0 T-piece 5.0 T-piece 5.0 05/07/19 11:30 110 23 107/45 (65) 100 05/07/19 11:00 99.3 117 25 85/37 (53) 97 05/07/19 11:00 99.3 05/07/19 10:00 125 35 103/24 (50) 94 Height (Feet): 5 Height (Inches): 3.00 Weight (Pounds): 130 HEENT: status post trach Respiratory/Chest: crackles/rales, rhonchi - bilaterally Cardiovascular: normal rate, regular rhythm, no gallop/murmur Abdomen: soft, non tender, other - GT Extremities: no edema, other - right arm PICC Microbiology Date/Time Source Procedure Growth Status 05/07/19 21:30 Sputum Gram Stain - Final Resulted 05/07/19 21:30 Sputum Sputum Culture Pending Resulted 05/07/19 18:30 Stool Clostridium difficile Toxin Assay - Final Complete Laboratory Tests Test 05/07/19 10:45 05/08/19 03:10 05/08/19 04:00 05/08/19 07:50 White Blood Count 25.9 K/UL (4.8-10.8) *H 21.6 K/UL (4.8-10.8) H 18.5 K/UL (4.8-10.8) H Red Blood Count 3.10 M/UL (4.20-5.40) L 2.53 M/UL (4.20-5.40) L 2.81 M/UL (4.20-5.40) L Hemoglobin 9.2 G/DL (12.0-16.0) L 7.6 G/DL (12.0-16.0) L 8.4 G/DL (12.0-16.0) L Hematocrit 27.2 % (37.0-47.0) L 22.5 % (37.0-47.0) L 24.9 % (37.0-47.0) L Mean Corpuscular Volume 88 FL (80-99) 89 FL (80-99) 88 FL (80-99) Mean Corpuscular Hemoglobin 29.7 PG (27.0-31.0) 30.2 PG (27.0-31.0) 29.9 PG (27.0-31.0) Mean Corpuscular Hemoglobin Concent 33.8 G/DL (32.0-36.0) 34.0 G/DL (32.0-36.0) 33.8 G/DL (32.0-36.0) Red Cell Distribution Width 13.7 % (11.6-14.8) 13.8 % (11.6-14.8) 14.0 % (11.6-14.8) Platelet Count 181 K/UL (150-450) 149 K/UL (150-450) L 159 K/UL (150-450) Mean Platelet Volume 5.1 FL (6.5-10.1) L 6.2 FL (6.5-10.1) L 6.4 FL (6.5-10.1) L Neutrophils (%) (Auto) % (45.0-75.0) % (45.0-75.0) % (45.0-75.0) Lymphocytes (%) (Auto) % (20.0-45.0) % (20.0-45.0) % (20.0-45.0) Monocytes (%) (Auto) % (1.0-10.0) % (1.0-10.0) % (1.0-10.0) Eosinophils (%) (Auto) % (0.0-3.0) % (0.0-3.0) % (0.0-3.0) Basophils (%) (Auto) % (0.0-2.0) % (0.0-2.0) % (0.0-2.0) Differential Total Cells Counted 100 100 100 Neutrophils % (Manual) 91 % (45-75) H 84 % (45-75) H 77 % (45-75) H Lymphocytes % (Manual) 1 % (20-45) L 10 % (20-45) L 16 % (20-45) L Monocytes % (Manual) 2 % (1-10) 6 % (1-10) 3 % (1-10) Eosinophils % (Manual) 1 % (0-3) 0 % (0-3) 4 % (0-3) H Basophils % (Manual) 0 % (0-2) 0 % (0-2) 0 % (0-2) Band Neutrophils 5 % (0-8) 0 % (0-8) 0 % (0-8) Platelet Estimate Adequate Adequate Adequate Platelet Morphology Normal Normal Normal Hypochromasia 2+ 1+ 1+ Anisocytosis 1+ Spherocytes 1+ Sodium Level 139 MMOL/L (136-145) 140 MMOL/L (136-145) Potassium Level 3.9 MMOL/L (3.5-5.1) 3.6 MMOL/L (3.5-5.1) Chloride Level 98 MMOL/L (98-107) 102 MMOL/L (98-107) Carbon Dioxide Level 30 MMOL/L (21-32) 32 MMOL/L (21-32) Anion Gap 11 mmol/L (5-15) 6 mmol/L (5-15) Blood Urea Nitrogen 66 mg/dL (7-18) H 56 mg/dL (7-18) H Creatinine 1.2 MG/DL (0.55-1.30) 0.9 MG/DL (0.55-1.30) Estimat Glomerular Filtration Rate mL/min (>60) mL/min (>60) Glucose Level 161 MG/DL (74-106) H 189 MG/DL (74-106) H Lactic Acid Level 1.70 mmol/L (0.4-2.0) Calcium Level 9.1 MG/DL (8.5-10.1) 8.5 MG/DL (8.5-10.1) Total Bilirubin 0.5 MG/DL (0.2-1.0) 0.3 MG/DL (0.2-1.0) Aspartate Amino Transf (AST/SGOT) 92 U/L (15-37) H 81 U/L (15-37) H Alanine Aminotransferase (ALT/SGPT) 140 U/L (12-78) H 140 U/L (12-78) H Alkaline Phosphatase 222 U/L (46-116) H 197 U/L (46-116) H Total Protein 8.1 G/DL (6.4-8.2) 7.4 G/DL (6.4-8.2) Albumin 2.8 G/DL (3.4-5.0) L 2.4 G/DL (3.4-5.0) L Globulin 5.3 g/dL 5.0 g/dL Albumin/Globulin Ratio 0.5 (1.0-2.7) L 0.5 (1.0-2.7) L Urine Color Yellow Urine Appearance Clear Urine pH 6.5 (4.5-8.0) Urine Specific [place] 1.010 (1.005-1.035) Urine Protein 3+ (NEGATIVE) H Urine Glucose (UA) Negative (NEGATIVE) Urine Ketones Negative (NEGATIVE) Urine Blood 3+ (NEGATIVE) H Urine Nitrite Negative (NEGATIVE) Urine Bilirubin Negative (NEGATIVE) Urine Urobilinogen Normal MG/DL (0.0-1.0) Urine Leukocyte Esterase 1+ (NEGATIVE) H Urine RBC 5-10 /HPF (0 - 2) H Urine WBC 0-2 /HPF (0 - 2) Urine Squamous Epithelial Cells Few /LPF (NONE/OCC) Urine Bacteria Few /HPF (NONE) Erythrocyte Sedimentation Rate 136 MM/HR (0-30) H Prothrombin Time 10.3 SEC (9.30-11.50) Prothromb Time International Ratio 1.0 (0.9-1.1) Activated Partial Thromboplast Time 33 SEC (23-33) Phosphorus Level 2.0 MG/DL (2.5-4.9) L Magnesium Level 2.0 MG/DL (1.8-2.4) C-Reactive Protein, Quantitative 22.7 mg/dL (0.00-0.90) H Amylase Level 145 U/L (25-115) H Lipase 259 U/L (73-393) Current Medications Medications (Trade) Dose Ordered Sig/Maicol Route PRN Reason Start Time Stop Time Status Last Admin Dose Admin Acetaminophen (Tylenol) 650 mg Q4H PRN RECTAL T>100.5 / Mild Pain 05/07/19 09:45 06/06/19 09:44 05/07/19 10:13 Albuterol/ Ipratropium (Albuterol/ Ipratropium) 3 ml Q4HRT HHN 05/05/19 19:00 05/10/19 18:59 05/08/19 06:53 Cefepime HCl 2 gm/ Dextrose 55 ml @ 110 mls/hr DAILY IVPB 05/04/19 10:00 05/11/19 09:59 05/08/19 09:29 Chlorhexidine Gluconate (Cesilia-Hex 2%) 1 applic DAILY@2000 TOPIC 04/12/19 20:00 05/12/19 19:59 05/07/19 20:54 Dextrose/Sodium Chloride 1,000 ml @ 100 mls/hr Q10H IV 05/07/19 20:15 06/06/19 20:14 05/08/19 06:35 Heparin Sodium (Porcine) (Heparin 5000 units/ml) 5,000 units EVERY 12 HOURS SUBQ 05/01/19 21:00 05/31/19 20:59 05/07/19 21:00 Levetiracetam (Keppra) 500 mg Q12HR GT 05/01/19 21:00 05/28/19 08:59 05/08/19 09:28 Norepinephrine Bitartrate 4 mg/ Dextrose 250 ml @ 0 mls/hr Q24H IV 05/07/19 12:30 06/06/19 12:29 05/07/19 12:24 Potassium Phosphate 250 ml @ 62.5 mls/hr Q4H IVPB 05/08/19 09:00 05/08/19 16:59 Sorbitol (Sorbitol) 30 ml BIDPRN PRN ORAL Constipation 04/13/19 11:15 05/13/19 11:14 Sorbitol (sorbitoL) 30 ml DAILY GT 04/14/19 09:00 05/14/19 08:59 05/08/19 09:28 Vancomycin HCl (Vanco rx to dose) 1 ea DAILY PRN MISC Per rx protocol 05/07/19 13:15 06/06/19 13:14 Vancomycin HCl 1 gm/Dextrose 275 ml @ 183.708 mls/hr Q24H IVPB 05/07/19 15:00 05/12/19 14:59 05/07/19 15:23 Geovany Yang MD May 08, 2019 10:02
[2019-05-08] MEDS: Potassium Phosphate 15mm/250ml 250 ML IVPB SCH ×2 (10:26→16:11)
--- NOTE | 2019-05-08 10:30 | NUR ---
NURSE NOTES: New bottle of Vital A.F. 1.2 started running through J-tube. patient repositioned and of load hips, wound remained healed on the sacral and bilateral hips and remain re-enforced with Optifoam dressing.
[2019-05-08] MEDS ORDERED: 1/2 NS 1000ml IV ONE (11:05)
--- NOTE | 2019-05-08 12:06 | NUR ---
RD ASSESSMENT & RECOMMENDATIONS SEE CARE ACTIVITY FOR COMPLETE ASSESSMENT DAILY ESTIMATED NEEDS: Needs based on Pulmonary, wounds, bedbound/ 61kg adj 25-30 kcals/kg 2123-4374 total kcals 1.25-2 g protein/kg 76-122 g total protein 25-30 mL/kg 0845-1480 total fluid mLs NUTRITION DIAGNOSIS: * Increased kcal/prot needs R/T wound healing as evidenced by BL buttocks and sacral wound photos, refer to WC eval-> wounds resolving, sacrum healed. * Swallowing difficulty R/T respiratory status as evidenced by pt on T-collar, s/p G-J conversion CURRENT TF:Vital AF 1.2 @ 60ml/hr x 24 hrs ENTERAL NUTRITION RECOMMENDATIONS: VITAL AF 1.2 @ 60ml/hr x 24 hrs to provide 1440ml, 1728kcal, 108g prot, 1167ml free water - Maintain current TF as tolerated-> meets 100% est needs - HOB over 30 degrees - Rec to increase water flushes ADDITIONAL RECOMMENDATIONS: 1) Maintain calibrated bedscale wt: fluctuating daily wts 2) Wound healing: maintain Cristian BID for skin integrity 3) Rec NISS for improved BG control -> Rec increasing water flushes vs D5 IVF for BG control 4) Monitor for continued good TF tolerance 5) Monitor HD stability: NE held .
--- NOTE | 2019-05-08 12:17 | NUR ---
NURSE NOTES: Dr. rosenberg called to inform of Gram negative rods in 4 bottles, she ordered to have the PICC line discontnued, discontinue cefepime and start on zosyn 3.375gm IV Q8hrs
--- NOTE | 2019-05-08 13:04 | Nephrology Progress Note ---
Assessment/Plan Problem List: (1) Acute renal failure (ARF) Assessment: Cr stable (2) Chronic respiratory failure (3) Anemia (4) Sepsis Assessment Acute renal failure Respiratory failure - Trach Low Mag- Low k , Low Na Anemia UTI / Sepsis Proteinuria / HypoAlbuminemia high Trigs Sz decubs bed bound DNR Plan Transfused previously now has JT bolus Albumin as needed K and Mag and Phos supplement as needed Hydrate as needed Urine studies avoid Nephrotoxics mag K Phos supplements as needed monitor renal parameters Subjective ROS Limited/Unobtainable: Yes Objective Objective Last 24 Hour Vital Signs Date Time Temp Pulse Resp B/P (MAP) Pulse Ox O2 Delivery O2 Flow Rate FiO2 05/08/19 12:30 98 T-Piece 5.0 28 05/08/19 12:30 159/61 05/08/19 12:00 5.0 28 05/08/19 12:00 T-piece 5.0 T-piece 5.0 T-piece 5.0 T-piece 5.0 05/08/19 12:00 104 05/08/19 10:55 102 21 100 T-Piece 5.0 28 105 24 98 05/08/19 10:00 100 30 127/51 (76) 100 05/08/19 09:00 90 22 99/61 (74) 100 05/08/19 08:00 T-piece 5.0 T-piece 5.0 T-piece 5.0 T-piece 5.0 05/08/19 08:00 98.3 93 25 121/48 (72) 95 05/08/19 08:00 5.0 28 05/08/19 08:00 94 05/08/19 07:02 90 22 100 T-Piece 5.0 28 95 25 96 05/08/19 07:00 97 25 124/47 (72) 98 05/08/19 06:53 96 T-Piece 5.0 28 05/08/19 06:00 98.3 88 22 105/46 (65) 99 05/08/19 05:00 91 25 126/48 (74) 98 05/08/19 04:00 93 22 129/50 (76) 100 05/08/19 04:00 5.0 28 05/08/19 04:00 T-piece 5.0 T-piece 5.0 T-piece 5.0 T-piece 5.0 05/08/19 04:00 96 05/08/19 03:00 88 22 141/54 (83) 98 05/08/19 02:12 85 21 100 T-Piece 5.0 28 86 22 98 05/08/19 02:00 88 22 98/44 (62) 98 05/08/19 01:00 92 21 134/53 (80) 100 05/08/19 00:32 100 T-Piece 5.0 28 05/08/19 00:30 98 24 150/52 (84) 100 05/08/19 00:00 T-piece 5.0 T-piece 5.0 T-piece 5.0 T-piece 5.0 05/08/19 00:00 98.5 94 20 125/53 (77) 100 05/08/19 00:00 95 05/08/19 00:00 5.0 28 05/07/19 23:30 94 20 136/52 (80) 100 05/07/19 23:00 104 26 143/55 (84) 100 05/07/19 22:30 105 21 128/50 (76) 100 05/07/19 22:10 101 21 100 T-Piece 5.0 28 98 19 100 05/07/19 22:00 121/48 05/07/19 22:00 102 24 125/52 (76) 100 05/07/19 21:30 97 22 127/54 (78) 100 05/07/19 21:00 95 23 109/47 (67) 97 05/07/19 21:00 127/54 05/07/19 20:30 96 21 96/49 (65) 97 05/07/19 20:00 96 05/07/19 20:00 5.0 28 05/07/19 20:00 96/49 05/07/19 20:00 T-piece 5.0 T-piece 5.0 T-piece 5.0 T-piece 5.0 05/07/19 20:00 97 21 99/48 (65) 97 05/07/19 19:30 97 22 113/50 (71) 99 05/07/19 19:22 100 24 100 T-Piece 5.0 28 101 25 100 05/07/19 19:22 100 T-Piece 5.0 28 05/07/19 19:00 98.4 97 21 113/50 (71) 100 05/07/19 19:00 113/50 05/07/19 18:00 89/44 05/07/19 18:00 95 21 89/44 (59) 98 05/07/19 17:30 96 22 106/51 (69) 100 05/07/19 17:00 99 23 114/56 (75) 99 05/07/19 17:00 114/56 05/07/19 16:00 T-piece 5.0 T-piece 5.0 T-piece 5.0 T-piece 5.0 05/07/19 16:00 100 05/07/19 16:00 97.9 99 22 96/59 (71) 100 05/07/19 16:00 5.0 28 05/07/19 16:00 96/59 05/07/19 15:39 99 24 100 T-Piece 5.0 28 97 26 100 05/07/19 15:30 100 23 121/59 (79) 100 05/07/19 15:00 121/59 05/07/19 15:00 101 23 111/60 (77) 100 05/07/19 14:30 104 25 112/55 (74) 100 05/07/19 14:00 108 21 90/48 (62) 98 05/07/19 14:00 112/55 05/07/19 13:30 111 23 137/60 (85) 99 Intake and Output 05/07/19 05/08/19 19:00 07:00 Intake Total 1704.500 ml 2592.5 ml Balance 1704.500 ml 2592.5 ml Free Water 150 ml 300 ml IV Total 964.500 ml 1122.5 ml Tube Feeding 390 ml 720 ml Other 200 ml 450 ml # Bowel Movements 2 1 Laboratory Tests 05/08/19 03:10: Urine Color Yellow, Urine Appearance Clear, Urine pH 6.5, Urine Specific [place] 1.010, Urine Protein 3+H, Urine Glucose (UA) Negative, Urine Ketones Negative, Urine Blood 3+H, Urine Nitrite Negative, Urine Bilirubin Negative, Urine Urobilinogen Normal, Urine Leukocyte Esterase 1+H, Urine RBC 5-10H, Urine WBC 0-2, Urine Squamous Epithelial Cells Few, Urine Bacteria Few 05/08/19 04:00: White Blood Count 21.6H, Red Blood Count 2.53L, Hemoglobin 7.6L, Hematocrit 22.5L, Mean Corpuscular Volume 89, Mean Corpuscular Hemoglobin 30.2, Mean Corpuscular Hemoglobin Concent 34.0, Red Cell Distribution Width 13.8, Platelet Count 149L, Mean Platelet Volume 6.2L, Neutrophils (%) (Auto) , Lymphocytes (%) (Auto) , Monocytes (%) (Auto) , Eosinophils (%) (Auto) , Basophils (%) (Auto) , Differential Total Cells Counted 100, Neutrophils % (Manual) 84H, Lymphocytes % (Manual) 10L, Monocytes % (Manual) 6, Eosinophils % (Manual) 0, Basophils % ( Manual) 0, Band Neutrophils 0, Platelet Estimate Adequate, Platelet Morphology Normal, Hypochromasia 1+, Erythrocyte Sedimentation Rate 136H, Prothrombin Time 10.3, Prothromb Time International Ratio 1.0, Activated Partial Thromboplast Time 33, Sodium Level 140, Potassium Level 3.6, Chloride Level 102, Carbon Dioxide Level 32, Anion Gap 6, Blood Urea Nitrogen 56H, Creatinine 0.9, Estimat Glomerular Filtration Rate , Glucose Level 189H, Calcium Level 8.5, Phosphorus Level 2.0L, Magnesium Level 2.0, Total Bilirubin 0.3, Aspartate Amino Transf ( AST/SGOT) 81H, Alanine Aminotransferase (ALT/SGPT) 140H, Alkaline Phosphatase 197H, C-Reactive Protein, Quantitative 22.7H, Total Protein 7.4, Albumin 2.4L, Globulin 5.0, Albumin/Globulin Ratio 0.5L, Amylase Level 145H, Lipase 259 05/08/19 07:50: White Blood Count 18.5H, Red Blood Count 2.81L, Hemoglobin 8.4L, Hematocrit 24.9L, Mean Corpuscular Volume 88, Mean Corpuscular Hemoglobin 29.9, Mean Corpuscular Hemoglobin Concent 33.8, Red Cell Distribution Width 14.0, Platelet Count 159, Mean Platelet Volume 6.4L, Neutrophils (%) (Auto) , Lymphocytes (%) ( Auto) , Monocytes (%) (Auto) , Eosinophils (%) (Auto) , Basophils (%) (Auto) , Differential Total Cells Counted 100, Neutrophils % (Manual) 77H, Lymphocytes % (Manual) 16L, Monocytes % (Manual) 3, Eosinophils % (Manual) 4H, Basophils % ( Manual) 0, Band Neutrophils 0, Platelet Estimate Adequate, Platelet Morphology Normal, Hypochromasia 1+ Height (Feet): 5 Height (Inches): 3.00 Weight (Pounds): 130 General Appearance: no apparent distress EENT: other - trach O2 Cardiovascular: tachycardia Respiratory/Chest: decreased breath sounds Abdomen: distended Objective no change Eric Cortez MD May 08, 2019 13:04
--- NOTE | 2019-05-08 14:21 | General Progress Note ---
Assessment/Plan Status: stable, progressing Assessment/Plan: Assessment - High grade GNR bacteremia, ? 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 - Anemia with OB (-) stools - Resp failure, s/p Trach - dysphagia, s/p PEG --> GJ tube - OBS, vegetative obtunded unresponsive state, bedbound with contracted extremities, - h/o minor GJ tube site irritation - poor Prognosis Recommendations - agree with D/C central line - abx per ID - daily sorbitol, and PRN sorbitol - Cristian BID - antibiotic ointment to GJT site PRN - aspiration precautions - elevate HOB - Vital AF 1.2 - check q 6 hour FS - transfuse to keep Hg > 7 - J tube feeds - G tube drain - IVF - check ESR --> elevated - further evaluation for autoimmune hepatitis (anti DNA, ASMA) - not candidate for immune suppression at this time Subjective Allergies: Coded Allergies: CODEINE (Verified Allergy, Unknown, HIVES, 09/15/09) Subjective above noted seen this am and d/w RN fnow 07/03 Blood Cx (+) for GNR Objective Last 24 Hour Vital Signs Date Time Temp Pulse Resp B/P (MAP) Pulse Ox O2 Delivery O2 Flow Rate FiO2 05/08/19 13:00 119 27 138/54 (82) 100 05/08/19 12:30 98 T-Piece 5.0 28 05/08/19 12:30 159/61 05/08/19 12:00 5.0 28 05/08/19 12:00 T-piece 5.0 T-piece 5.0 T-piece 5.0 T-piece 5.0 05/08/19 12:00 99.7 120 28 159/61 (93) 97 05/08/19 12:00 104 05/08/19 11:00 100 24 120/47 (71) 96 05/08/19 10:55 102 21 100 T-Piece 5.0 28 105 24 98 05/08/19 10:00 100 30 127/51 (76) 100 05/08/19 09:00 90 22 99/61 (74) 100 05/08/19 08:00 T-piece 5.0 T-piece 5.0 T-piece 5.0 T-piece 5.0 05/08/19 08:00 98.3 93 25 121/48 (72) 95 05/08/19 08:00 5.0 28 05/08/19 08:00 94 05/08/19 07:02 90 22 100 T-Piece 5.0 28 95 25 96 05/08/19 07:00 97 25 124/47 (72) 98 05/08/19 06:53 96 T-Piece 5.0 28 05/08/19 06:00 98.3 88 22 105/46 (65) 99 05/08/19 05:00 91 25 126/48 (74) 98 05/08/19 04:00 93 22 129/50 (76) 100 05/08/19 04:00 5.0 28 05/08/19 04:00 T-piece 5.0 T-piece 5.0 T-piece 5.0 T-piece 5.0 05/08/19 04:00 96 05/08/19 03:00 88 22 141/54 (83) 98 05/08/19 02:12 85 21 100 T-Piece 5.0 28 86 22 98 05/08/19 02:00 88 22 98/44 (62) 98 05/08/19 01:00 92 21 134/53 (80) 100 05/08/19 00:32 100 T-Piece 5.0 28 05/08/19 00:30 98 24 150/52 (84) 100 05/08/19 00:00 T-piece 5.0 T-piece 5.0 T-piece 5.0 T-piece 5.0 05/08/19 00:00 98.5 94 20 125/53 (77) 100 05/08/19 00:00 95 05/08/19 00:00 5.0 28 05/07/19 23:30 94 20 136/52 (80) 100 05/07/19 23:00 104 26 143/55 (84) 100 05/07/19 22:30 105 21 128/50 (76) 100 05/07/19 22:10 101 21 100 T-Piece 5.0 28 98 19 100 2/6/20 22:00 121/48 05/07/19 22:00 102 24 125/52 (76) 100 05/07/19 21:30 97 22 127/54 (78) 100 05/07/19 21:00 95 23 109/47 (67) 97 05/07/19 21:00 127/54 05/07/19 20:30 96 21 96/49 (65) 97 05/07/19 20:00 96 05/07/19 20:00 5.0 28 05/07/19 20:00 96/49 05/07/19 20:00 T-piece 5.0 T-piece 5.0 T-piece 5.0 T-piece 5.0 05/07/19 20:00 97 21 99/48 (65) 97 05/07/19 19:30 97 22 113/50 (71) 99 05/07/19 19:22 100 24 100 T-Piece 5.0 28 101 25 100 05/07/19 19:22 100 T-Piece 5.0 28 05/07/19 19:00 98.4 97 21 113/50 (71) 100 05/07/19 19:00 113/50 05/07/19 18:00 89/44 05/07/19 18:00 95 21 89/44 (59) 98 05/07/19 17:30 96 22 106/51 (69) 100 05/07/19 17:00 99 23 114/56 (75) 99 05/07/19 17:00 114/56 05/07/19 16:00 T-piece 5.0 T-piece 5.0 T-piece 5.0 T-piece 5.0 05/07/19 16:00 100 05/07/19 16:00 97.9 99 22 96/59 (71) 100 05/07/19 16:00 5.0 28 05/07/19 16:00 96/59 05/07/19 15:39 99 24 100 T-Piece 5.0 28 97 26 100 05/07/19 15:30 100 23 121/59 (79) 100 05/07/19 15:00 121/59 05/07/19 15:00 101 23 111/60 (77) 100 05/07/19 14:30 104 25 112/55 (74) 100 Intake and Output 05/07/19 05/08/19 19:00 07:00 Intake Total 1704.500 ml 2592.5 ml Balance 1704.500 ml 2592.5 ml Free Water 150 ml 300 ml IV Total 964.500 ml 1122.5 ml Tube Feeding 390 ml 720 ml Other 200 ml 450 ml # Bowel Movements 2 1 Laboratory Tests 05/08/19 03:10: Urine Color Yellow, Urine Appearance Clear, Urine pH 6.5, Urine Specific [place] 1.010, Urine Protein 3+H, Urine Glucose (UA) Negative, Urine Ketones Negative, Urine Blood 3+H, Urine Nitrite Negative, Urine Bilirubin Negative, Urine Urobilinogen Normal, Urine Leukocyte Esterase 1+H, Urine RBC 5-10H, Urine WBC 0-2, Urine Squamous Epithelial Cells Few, Urine Bacteria Few 05/08/19 04:00: White Blood Count 21.6H, Red Blood Count 2.53L, Hemoglobin 7.6L, Hematocrit 22.5L, Mean Corpuscular Volume 89, Mean Corpuscular Hemoglobin 30.2, Mean Corpuscular Hemoglobin Concent 34.0, Red Cell Distribution Width 13.8, Platelet Count 149L, Mean Platelet Volume 6.2L, Neutrophils (%) (Auto) , Lymphocytes (%) (Auto) , Monocytes (%) (Auto) , Eosinophils (%) (Auto) , Basophils (%) (Auto) , Differential Total Cells Counted 100, Neutrophils % (Manual) 84H, Lymphocytes % (Manual) 10L, Monocytes % (Manual) 6, Eosinophils % (Manual) 0, Basophils % ( Manual) 0, Band Neutrophils 0, Platelet Estimate Adequate, Platelet Morphology Normal, Hypochromasia 1+, Erythrocyte Sedimentation Rate 136H, Prothrombin Time 10.3, Prothromb Time International Ratio 1.0, Activated Partial Thromboplast Time 33, Sodium Level 140, Potassium Level 3.6, Chloride Level 102, Carbon Dioxide Level 32, Anion Gap 6, Blood Urea Nitrogen 56H, Creatinine 0.9, Estimat Glomerular Filtration Rate , Glucose Level 189H, Calcium Level 8.5, Phosphorus Level 2.0L, Magnesium Level 2.0, Total Bilirubin 0.3, Aspartate Amino Transf ( AST/SGOT) 81H, Alanine Aminotransferase (ALT/SGPT) 140H, Alkaline Phosphatase 197H, C-Reactive Protein, Quantitative 22.7H, Total Protein 7.4, Albumin 2.4L, Globulin 5.0, Albumin/Globulin Ratio 0.5L, Amylase Level 145H, Lipase 259 05/08/19 07:50: White Blood Count 18.5H, Red Blood Count 2.81L, Hemoglobin 8.4L, Hematocrit 24.9L, Mean Corpuscular Volume 88, Mean Corpuscular Hemoglobin 29.9, Mean Corpuscular Hemoglobin Concent 33.8, Red Cell Distribution Width 14.0, Platelet Count 159, Mean Platelet Volume 6.4L, Neutrophils (%) (Auto) , Lymphocytes (%) ( Auto) , Monocytes (%) (Auto) , Eosinophils (%) (Auto) , Basophils (%) (Auto) , Differential Total Cells Counted 100, Neutrophils % (Manual) 77H, Lymphocytes % (Manual) 16L, Monocytes % (Manual) 3, Eosinophils % (Manual) 4H, Basophils % ( Manual) 0, Band Neutrophils 0, Platelet Estimate Adequate, Platelet Morphology Normal, Hypochromasia 1+ Height (Feet): 5 Height (Inches): 3.00 Weight (Pounds): 130 Objective Debilitated AA woman non-verbal, obtunded NCAT (+) trach coarse BS RR obese abd, (+) GJT no edema (+) contractured extremities Celio Vaughan MD May 08, 2019 14:21
[2019-05-08] MEDS: Vancomycin 1gm/D5W 275ml IVPB SCH ×2 (14:33)
--- NOTE | 2019-05-08 14:34 | NUR ---
PUPPY SITTERTRIM SAWYER SI: RESP FAILURE TRACH/COOL AEROSOL T. 99.7 HR 119 RR 28 B/P 159/61 T-BAR FIO2 28% WBC 18.5 ESR 134 BUN 56 ALT 140 AST 81 AMYLASE 145 CXR= PERIHILAR INFILTRATES IS: ZOSYN IV K-PHOS IV IVF D5NS @100ML/HR VANCO IV HEPARIN SUBC ICU STATUS
[2019-05-08] MEDS: Piperacillin/Tazobactam 3.375 GM in NS 110 ML IVPB SCH ×2 (16:13→21:59)
--- NOTE | 2019-05-08 16:23 | Diagnostic Imaging Report ---
Indication: Abdominal pain Comparison: 03/07/2019 Single view of the abdomen obtained Findings: The study is limited due to underexposure. There is a catheter projected over the mid abdomen which appears to be a gastrostomy tube bowel gas pattern appears nonobstructive. Bones are osteopenic. IMPRESSION: No acute findings appreciated. Study is limited
--- NOTE | 2019-05-08 17:36 | Pulmonology Progress Note ---
Assessment/Plan Assessment/Plan Impression: history of Sepsis history of Pneumonia Trach, G tube, Hypertension, Cardiac disease, Dementia, Previous CVA, Seizure disorder, Respiratory failure with hypoxia Anemia, Sacral ulcer renal cyst chronic pulmonary congestion Plan continue with respiratory care monitor protein levels and adjust monitor imaging per review likely chronic monitor labs and reflux aspiration abdominal xray reviewed elevate head and monitor secretions DNR. No CPR. ICU care reviewed meds noted and updated; neb therapy off load as able nutrition/fees/ dietary as is; monitor residuals skin care difficulty with placement all changes noted and discussed chronic management as able medications/laboratory data/nursing notes/ICU care reviewed in detail note reviewed and edited care discussed with RN and RT Subjective ROS Limited/Unobtainable: Yes Allergies: Coded Allergies: CODEINE (Verified Allergy, Unknown, HIVES, 09/15/09) Subjective overnight events noted; still off vent multiple cultures noted repeat cxr noted ICU care issues discussed bed bound and obtunded slightly more congested Objective Last 24 Hour Vital Signs Date Time Temp Pulse Resp B/P (MAP) Pulse Ox O2 Delivery O2 Flow Rate FiO2 05/08/19 16:00 99.8 114 27 124/58 (80) 95 05/08/19 16:00 115 05/08/19 16:00 5.0 28 05/08/19 16:00 T-piece 5.0 T-piece 5.0 T-piece 5.0 T-piece 5.0 05/08/19 15:00 115 28 128/57 (80) 97 05/08/19 14:40 118 21 99 T-Piece 5.0 28 110 25 97 05/08/19 14:00 112 25 125/96 (106) 97 05/08/19 13:00 119 27 138/54 (82) 100 05/08/19 12:30 98 T-Piece 5.0 28 05/08/19 12:30 159/61 05/08/19 12:00 5.0 28 05/08/19 12:00 T-piece 5.0 T-piece 5.0 T-piece 5.0 T-piece 5.0 05/08/19 12:00 99.7 120 28 159/61 (93) 97 05/08/19 12:00 104 05/08/19 11:00 100 24 120/47 (71) 96 05/08/19 10:55 102 21 100 T-Piece 5.0 28 105 24 98 05/08/19 10:00 100 30 127/51 (76) 100 05/08/19 09:00 90 22 99/61 (74) 100 05/08/19 08:00 T-piece 5.0 T-piece 5.0 T-piece 5.0 T-piece 5.0 05/08/19 08:00 98.3 93 25 121/48 (72) 95 05/08/19 08:00 5.0 28 05/08/19 08:00 94 05/08/19 07:02 90 22 100 T-Piece 5.0 28 95 25 96 05/08/19 07:00 97 25 124/47 (72) 98 05/08/19 06:53 96 T-Piece 5.0 28 05/08/19 06:00 98.3 88 22 105/46 (65) 99 05/08/19 05:00 91 25 126/48 (74) 98 05/08/19 04:00 93 22 129/50 (76) 100 05/08/19 04:00 5.0 28 05/08/19 04:00 T-piece 5.0 T-piece 5.0 T-piece 5.0 T-piece 5.0 05/08/19 04:00 96 05/08/19 03:00 88 22 141/54 (83) 98 05/08/19 02:12 85 21 100 T-Piece 5.0 28 86 22 98 05/08/19 02:00 88 22 98/44 (62) 98 05/08/19 01:00 92 21 134/53 (80) 100 05/08/19 00:32 100 T-Piece 5.0 28 05/08/19 00:30 98 24 150/52 (84) 100 05/08/19 00:00 T-piece 5.0 T-piece 5.0 T-piece 5.0 T-piece 5.0 05/08/19 00:00 98.5 94 20 125/53 (77) 100 05/08/19 00:00 95 05/08/19 00:00 5.0 28 05/07/19 23:30 94 20 136/52 (80) 100 05/07/19 23:00 104 26 143/55 (84) 100 05/07/19 22:30 105 21 128/50 (76) 100 05/07/19 22:10 101 21 100 T-Piece 5.0 28 98 19 100 05/07/19 22:00 121/48 05/07/19 22:00 102 24 125/52 (76) 100 05/07/19 21:30 97 22 127/54 (78) 100 05/07/19 21:00 95 23 109/47 (67) 97 05/07/19 21:00 127/54 05/07/19 20:30 96 21 96/49 (65) 97 05/07/19 20:00 96 05/07/19 20:00 5.0 28 05/07/19 20:00 96/49 05/07/19 20:00 T-piece 5.0 T-piece 5.0 T-piece 5.0 T-piece 5.0 05/07/19 20:00 97 21 99/48 (65) 97 05/07/19 19:30 97 22 113/50 (71) 99 05/07/19 19:22 100 24 100 T-Piece 5.0 28 101 25 100 05/07/19 19:22 100 T-Piece 5.0 28 05/07/19 19:00 98.4 97 21 113/50 (71) 100 05/07/19 19:00 113/50 05/07/19 18:00 89/44 05/07/19 18:00 95 21 89/44 (59) 98 Intake and Output 05/07/19 05/08/19 19:00 07:00 Intake Total 1704.500 ml 2592.5 ml Balance 1704.500 ml 2592.5 ml Free Water 150 ml 300 ml IV Total 964.500 ml 1122.5 ml Tube Feeding 390 ml 720 ml Other 200 ml 450 ml # Bowel Movements 2 1 Objective WDWN NAD contracted off vent reduced breath sounds bilaterally without rhonchi or wheeze [id number] without MRG NABS nontender no HSM no CC trace edema same nonfocal nonverbal trach and gt reviewed and edited Microbiology Date/Time Source Procedure Growth Status 05/07/19 10:45 Blood Blood Culture - Preliminary Resulted 05/07/19 10:00 Blood Blood Culture - Preliminary Resulted 05/07/19 21:30 Sputum Gram Stain - Final Resulted 05/07/19 21:30 Sputum Sputum Culture Pending Resulted 05/07/19 18:30 Stool Clostridium difficile Toxin Assay - Final Complete Laboratory Tests 05/08/19 03:10: Urine Color Yellow, Urine Appearance Clear, Urine pH 6.5, Urine Specific [place] 1.010, Urine Protein 3+H, Urine Glucose (UA) Negative, Urine Ketones Negative, Urine Blood 3+H, Urine Nitrite Negative, Urine Bilirubin Negative, Urine Urobilinogen Normal, Urine Leukocyte Esterase 1+H, Urine RBC 5-10H, Urine WBC 0-2, Urine Squamous Epithelial Cells Few, Urine Bacteria Few 05/08/19 04:00: White Blood Count 21.6H, Red Blood Count 2.53L, Hemoglobin 7.6L, Hematocrit 22.5L, Mean Corpuscular Volume 89, Mean Corpuscular Hemoglobin 30.2, Mean Corpuscular Hemoglobin Concent 34.0, Red Cell Distribution Width 13.8, Platelet Count 149L, Mean Platelet Volume 6.2L, Neutrophils (%) (Auto) , Lymphocytes (%) (Auto) , Monocytes (%) (Auto) , Eosinophils (%) (Auto) , Basophils (%) (Auto) , Differential Total Cells Counted 100, Neutrophils % (Manual) 84H, Lymphocytes % (Manual) 10L, Monocytes % (Manual) 6, Eosinophils % (Manual) 0, Basophils % ( Manual) 0, Band Neutrophils 0, Platelet Estimate Adequate, Platelet Morphology Normal, Hypochromasia 1+, Erythrocyte Sedimentation Rate 136H, Prothrombin Time 10.3, Prothromb Time International Ratio 1.0, Activated Partial Thromboplast Time 33, Sodium Level 140, Potassium Level 3.6, Chloride Level 102, Carbon Dioxide Level 32, Anion Gap 6, Blood Urea Nitrogen 56H, Creatinine 0.9, Estimat Glomerular Filtration Rate , Glucose Level 189H, Calcium Level 8.5, Phosphorus Level 2.0L, Magnesium Level 2.0, Total Bilirubin 0.3, Aspartate Amino Transf ( AST/SGOT) 81H, Alanine Aminotransferase (ALT/SGPT) 140H, Alkaline Phosphatase 197H, C-Reactive Protein, Quantitative 22.7H, Total Protein 7.4, Albumin 2.4L, Globulin 5.0, Albumin/Globulin Ratio 0.5L, Amylase Level 145H, Lipase 259 05/08/19 07:50: White Blood Count 18.5H, Red Blood Count 2.81L, Hemoglobin 8.4L, Hematocrit 24.9L, Mean Corpuscular Volume 88, Mean Corpuscular Hemoglobin 29.9, Mean Corpuscular Hemoglobin Concent 33.8, Red Cell Distribution Width 14.0, Platelet Count 159, Mean Platelet Volume 6.4L, Neutrophils (%) (Auto) , Lymphocytes (%) ( Auto) , Monocytes (%) (Auto) , Eosinophils (%) (Auto) , Basophils (%) (Auto) , Differential Total Cells Counted 100, Neutrophils % (Manual) 77H, Lymphocytes % (Manual) 16L, Monocytes % (Manual) 3, Eosinophils % (Manual) 4H, Basophils % ( Manual) 0, Band Neutrophils 0, Platelet Estimate Adequate, Platelet Morphology Normal, Hypochromasia 1+ Current Medications Medications (Trade) Dose Ordered Sig/Maicol Route PRN Reason Start Time Stop Time Status Last Admin Dose Admin Acetaminophen (Tylenol) 650 mg Q4H PRN RECTAL T>100.5 / Mild Pain 05/07/19 09:45 06/06/19 09:44 05/07/19 10:13 Albuterol/ Ipratropium (Albuterol/ Ipratropium) 3 ml Q4HRT HHN 05/05/19 19:00 05/10/19 18:59 05/08/19 14:30 Chlorhexidine Gluconate (Cesilia-Hex 2%) 1 applic DAILY@2000 TOPIC 04/12/19 20:00 05/12/19 19:59 05/07/19 20:54 Dextrose/Sodium Chloride 1,000 ml @ 100 mls/hr Q10H IV 05/07/19 20:15 06/06/19 20:14 05/08/19 16:11 Heparin Sodium (Porcine) (Heparin 5000 units/ml) 5,000 units EVERY 12 HOURS SUBQ 05/01/19 21:00 05/31/19 20:59 05/07/19 21:00 Levetiracetam (Keppra) 500 mg Q12HR GT 05/01/19 21:00 05/28/19 08:59 05/08/19 09:28 Norepinephrine Bitartrate 4 mg/ Dextrose 250 ml @ 0 mls/hr Q24H IV 05/07/19 12:30 06/06/19 12:29 05/07/19 12:24 Piperacillin Sod/ Tazobactam Sod 3.375 gm/Sodium Chloride 110 ml @ 27.5 mls/hr EVERY 8 HOURS IVPB 05/08/19 14:00 05/13/19 13:59 05/08/19 16:13 Sorbitol (Sorbitol) 30 ml BIDPRN PRN ORAL Constipation 04/13/19 11:15 05/13/19 11:14 Sorbitol (sorbitoL) 30 ml DAILY GT 04/14/19 09:00 05/14/19 08:59 05/08/19 09:28 Vancomycin HCl (Vanco rx to dose) 1 ea DAILY PRN MISC Per rx protocol 05/07/19 13:15 06/06/19 13:14 Vancomycin HCl 1 gm/Dextrose 275 ml @ 183.708 mls/hr Q24H IVPB 05/07/19 15:00 05/12/19 14:59 05/08/19 14:33 Amaury Chan MD May 08, 2019 17:36
--- NOTE | 2019-05-08 18:05 | NUR ---
NURSE NOTES: patient pad cleaned and provided sponge bath, remains on t- piece on Fio2 at 28% with no distress producing clear while sputum, remains tolerating tube feeding of 60ml/hr running through J-tube.
--- NOTE | 2019-05-08 19:22 | NUR ---
HAND-OFF: Report given to JEANNINE Staley. Endorsed regarding orders placed and physician orders.
--- NOTE | 2019-05-08 19:30 | NUR ---
NURSE NOTES: Received pt and report from JEANNINE Pederson. Patient's non-verbal, open eyes with voice. Sinus rhythm on the monitor. Shiley 6.0, receiving oxygen per T piece 28%, 5L. Pt's afebrile at this time 99.0F. VS stable. BP 140/90 currently no pressor. With GJ tube. G tube connected to drainable bag per gravity. J tube receiving feeding of Vital AF 60ml/hr. Purewick in place. Head of bed elevated. Bed locked and in low position. Call light within reach. Bed alarm on. Daughter at bedside. Will continue to monitor.
[2019-05-08] MEDS: Dyna-Hex 2% Top Sol 2oz TOPIC SCH (20:55)
--- NOTE | 2019-05-08 21:00 | NUR ---
NURSE NOTES: Pt's resting in bed, in no acute distress. VS stable, Afebrile. Removing right upper arm PICC without complications/bleeding. Will continue to monitor. Currently pt has Right hand peripheral line 20G intact, running D5NS at 100ml/hr.
--- NOTE | 2019-05-08 22:00 | NUR ---
NURSE NOTES: Pt's asleep with eyes closed, VS stable, in no acute distress. Will continue to monitor.
[2019-05-09] VITALS (24 sets, daily range): BP systolic 112–158; BP diastolic 49–71
--- NOTE | 2019-05-09 | NUR ---
NURSE NOTES: Pt's resting in bed, in no acute distress. VS stable. Will continue to monitor.
--- NOTE | 2019-05-09 02:00 | NUR ---
NURSE NOTES: Pt's resting bed, asleep, in no acute distress. VS stable. Will continue to monitor.
[2019-05-09] MEDS: D5NS 1,000 ML IV SCH ×3 (02:15→20:17)
[2019-05-09] MEDS: Albuterol/Ipratropium 3ml neb HHN SCH ×6 (03:28→23:06)
--- NOTE | 2019-05-09 04:00 | NUR ---
NURSE NOTES: Pt's asleep, in no acute distress. VS stable. Will continue to monitor.
[2019-05-09] MEDS: Piperacillin/Tazobactam 3.375 GM in NS 110 ML IVPB SCH ×3 (05:41→20:16)
[2019-05-09 05:46] LABS: HEMOGLOBIN 7.6 G/DL (12.0-16.0); MEAN CORPUSCULAR VOLUME 89 FL (80-99); PLATELET COUNT 141 K/UL (150-450); RED BLOOD COUNT 2.58 M/UL (4.20-5.40); RED CELL DISTRIBUTION WIDTH 14.6 % (11.6-14.8); WHITE BLOOD COUNT 14.5 K/UL (4.8-10.8)
[2019-05-09 06:46] LABS: ALANINE AMINOTRANSFERASE 234 U/L (12-78); ALBUMIN 2.2 G/DL (3.4-5.0); ALBUMIN/GLOBULIN RATIO 0.4 (1.0-2.7); ALKALINE PHOSPHATASE 216 U/L (46-116); ANION GAP 8 mmol/L (5-15); ASPARTATE AMINO TRANSFERASE 125 U/L (15-37); BILIRUBIN,TOTAL 0.4 MG/DL (0.2-1.0); BLOOD UREA NITROGEN 34 mg/dL (7-18); CALCIUM 8.5 MG/DL (8.5-10.1); CARBON DIOXIDE 30 MMOL/L (21-32); CHLORIDE 107 MMOL/L (98-107); CREATININE 0.9 MG/DL (0.55-1.30); POTASSIUM 4.1 MMOL/L (3.5-5.1); SODIUM 145 MMOL/L (136-145)
--- NOTE | 2019-05-09 07:00 | NUR ---
HAND-OFF: Report given to JEANNINE Gilmore.
--- NOTE | 2019-05-09 07:01 | NUR ---
NURSE NOTES: RECEIVED PATIENT FROM Destinee ARREOLA RN. PATIENT IS LYING IN BED, ASLEEP. HOOKED TO TR[employer] OPERATOR. T-PIECE SHILEY 6, XLT CONNECTED TO COOL AEROSOL 28%, 5L. NO SIGNS OF DISTRESS OF THE MOMENT. J-GT IN PLACE. J-TUBE RUNNING VITAL AF AT 60ML/HR. AN DG-TUBE CONNECT TO BAG BY GRAVITY. ON PUREWICK. NOTED SKIN ALTERATION. ON P200 MATTRESS. PIV ON R H G20 WITH RUNNING IVF D5NS AT 100ML/HR. CALL LIGHT WITHIN REACH. BED AT LOWEST POSITION. WILL CONTINUE TO MONITOR.
--- NOTE | 2019-05-09 07:05 | NUR ---
NURSE NOTES: SEEN AND EXAMINED BY DR CABA AND INFORMED OF THE ABN LABS.
--- NOTE | 2019-05-09 07:11 | General Progress Note ---
Assessment/Plan Status: stable, progressing Assessment/Plan: Assessment/Plan Status: stable, progressing Assessment/Plan: Assessment - High grade GNR bacteremia, ? 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 - Anemia with OB (-) stools - Resp failure, s/p Trach - dysphagia, s/p PEG --> GJ tube - OBS, vegetative obtunded unresponsive state, bedbound with contracted extremities, - h/o minor GJ tube site irritation - poor Prognosis Recommendations - agree with D/C central line - abx per ID - daily sorbitol, and PRN sorbitol - Cristian BID - antibiotic ointment to GJT site PRN - aspiration precautions - elevate HOB - Vital AF 1.2 - check q 6 hour FS - transfuse to keep Hg > 7 - J tube feeds - G tube drain - IVF - check ESR --> elevated - further evaluation for autoimmune hepatitis (anti DNA, ASMA) - not candidate for immune suppression at this time Subjective ROS Limited/Unobtainable: No Allergies: Coded Allergies: CODEINE (Verified Allergy, Unknown, HIVES, 09/15/09) Objective Last 24 Hour Vital Signs Date Time Temp Pulse Resp B/P (MAP) Pulse Ox O2 Delivery O2 Flow Rate FiO2 05/09/19 06:00 94 22 144/69 (94) 99 05/09/19 05:00 94 23 139/57 (84) 99 05/09/19 04:00 90 05/09/19 04:00 T-piece 5.0 T-piece 5.0 T-piece 5.0 T-piece 5.0 05/09/19 04:00 5.0 28 05/09/19 04:00 93 22 136/54 (81) 100 05/09/19 03:28 96 24 99 T-Piece 5.0 28 94 26 99 05/09/19 03:00 91 24 129/57 (81) 98 05/09/19 02:00 93 22 147/59 (88) 96 05/09/19 01:00 100 T-Piece 5.0 28 05/09/19 01:00 97 25 136/58 (84) 97 05/09/19 00:00 98.8 93 24 118/49 (72) 98 05/09/19 00:00 T-piece 5.0 T-piece 5.0 T-piece 5.0 T-piece 5.0 05/08/19 23:28 93 21 100 T-Piece 5.0 28 91 24 100 05/08/19 23:00 89 24 115/61 (79) 100 05/08/19 22:00 93 23 145/63 (90) 99 05/08/19 21:00 114 21 136/121 (126) 97 05/08/19 20:00 T-piece 5.0 T-piece 5.0 T-piece 5.0 T-piece 5.0 05/08/19 20:00 95 05/08/19 20:00 97 23 125/57 (79) 100 05/08/19 20:00 5.0 28 05/08/19 19:40 98 T-Piece 5.0 28 05/08/19 19:40 103 23 100 T-Piece 5.0 28 101 24 100 05/08/19 19:00 99 26 121/55 (77) 98 05/08/19 18:00 105 26 125/51 (75) 98 05/08/19 17:00 109 26 119/51 (73) 97 05/08/19 16:00 99.8 114 27 124/58 (80) 95 05/08/19 16:00 115 05/08/19 16:00 5.0 28 05/08/19 16:00 T-piece 5.0 T-piece 5.0 T-piece 5.0 T-piece 5.0 05/08/19 15:00 115 28 128/57 (80) 97 05/08/19 14:40 118 21 99 T-Piece 5.0 28 110 25 97 05/08/19 14:00 112 25 125/96 (106) 97 05/08/19 13:00 119 27 138/54 (82) 100 05/08/19 12:30 98 T-Piece 5.0 28 05/08/19 12:30 159/61 05/08/19 12:00 5.0 28 05/08/19 12:00 T-piece 5.0 T-piece 5.0 T-piece 5.0 T-piece 5.0 05/08/19 12:00 99.7 120 28 159/61 (93) 97 05/08/19 12:00 104 05/08/19 11:00 100 24 120/47 (71) 96 05/08/19 10:55 102 21 100 T-Piece 5.0 28 105 24 98 05/08/19 10:00 100 30 127/51 (76) 100 05/08/19 09:00 90 22 99/61 (74) 100 05/08/19 08:00 T-piece 5.0 T-piece 5.0 T-piece 5.0 T-piece 5.0 05/08/19 08:00 98.3 93 25 121/48 (72) 95 05/08/19 08:00 5.0 28 05/08/19 08:00 94 Intake and Output 05/08/19 05/09/19 19:00 07:00 Intake Total 2693.208 ml 2017.5 ml Output Total 1575 ml 6325 ml Balance 1118.208 ml -4307.5 ml Free Water 160 ml IV Total 1933.208 ml 1037.5 ml Tube Feeding 720 ml 660 ml Other 40 ml 160 ml Output Urine Total 425 ml Other 1150 ml 6325 ml Laboratory Tests 05/08/19 07:50: White Blood Count 18.5H, Red Blood Count 2.81L, Hemoglobin 8.4L, Hematocrit 24.9L, Mean Corpuscular Volume 88, Mean Corpuscular Hemoglobin 29.9, Mean Corpuscular Hemoglobin Concent 33.8, Red Cell Distribution Width 14.0, Platelet Count 159, Mean Platelet Volume 6.4L, Neutrophils (%) (Auto) , Lymphocytes (%) ( Auto) , Monocytes (%) (Auto) , Eosinophils (%) (Auto) , Basophils (%) (Auto) , Differential Total Cells Counted 100, Neutrophils % (Manual) 77H, Lymphocytes % (Manual) 16L, Monocytes % (Manual) 3, Eosinophils % (Manual) 4H, Basophils % ( Manual) 0, Band Neutrophils 0, Platelet Estimate Adequate, Platelet Morphology Normal, Hypochromasia 1+ 05/09/19 04:25: White Blood Count 14.5H, Red Blood Count 2.58L, Hemoglobin 7.6L, Hematocrit 23.0L, Mean Corpuscular Volume 89, Mean Corpuscular Hemoglobin 29.6, Mean Corpuscular Hemoglobin Concent 33.2, Red Cell Distribution Width 14.6, Platelet Count 141L, Mean Platelet Volume 7.4, Neutrophils (%) (Auto) , Lymphocytes (%) ( Auto) , Monocytes (%) (Auto) , Eosinophils (%) (Auto) , Basophils (%) (Auto) , Neutrophils % (Manual) [Pending], Lymphocytes % (Manual) [Pending], Platelet Estimate [Pending], Platelet Morphology [Pending], Sodium Level 145, Potassium Level 4.1, Chloride Level 107, Carbon Dioxide Level 30, Anion Gap 8, Blood Urea Nitrogen 34H, Creatinine 0.9, Estimat Glomerular Filtration Rate , Glucose Level 178H, Calcium Level 8.5, Total Bilirubin 0.4, Aspartate Amino Transf (AST/ SGOT) 125H, Alanine Aminotransferase (ALT/SGPT) 234H, Alkaline Phosphatase 216H , Total Protein 7.4, Albumin 2.2L, Globulin 5.2, Albumin/Globulin Ratio 0.4L Height (Feet): 5 Height (Inches): 3.00 Weight (Pounds): 130 General Appearance: lethargic EENT: normal ENT inspection Neck: supple Cardiovascular: normal rate Respiratory/Chest: decreased breath sounds Abdomen: normal bowel sounds, non tender, soft Extremities: non-tender Gary Guzman MD May 09, 2019 07:11
--- NOTE | 2019-05-09 08:14 | General Progress Note ---
Assessment/Plan Problem List: (1) Seizure ICD Codes: R56.9 - Unspecified convulsions SNOMED: 44931819 (2) Anemia ICD Codes: D64.9 - Anemia, unspecified SNOMED: 345576012 Qualifiers: Qualified Codes: D64.9 - Anemia, unspecified (3) Sepsis ICD Codes: A41.9 - Sepsis, unspecified organism SNOMED: 35061256, 593404063 Qualifiers: Qualified Codes: A41.9 - Sepsis, unspecified organism (4) Respiratory failure with hypoxia ICD Codes: J96.91 - Respiratory failure, unspecified with hypoxia SNOMED: 63026750301807049 Qualifiers: Qualified Codes: J96.21 - Acute and chronic respiratory failure with hypoxia (5) HCAP (healthcare-associated pneumonia) ICD Codes: J18.9 - Pneumonia, unspecified organism SNOMED: 561436611, 888840316 (6) Sacral decubitus ulcer ICD Codes: L89.159 - Pressure ulcer of sacral region, unspecified stage SNOMED: 086973396 (7) HTN (hypertension) ICD Codes: I10 - Essential (primary) hypertension SNOMED: 96525460 (8) Chronic vegetative state ICD Codes: R40.3 - Persistent vegetative state SNOMED: 68950103 (9) Chronic respiratory failure ICD Codes: J96.10 - Chronic respiratory failure, unspecified whether with hypoxia or hypercapnia SNOMED: 10404588 (10) Limited mobility ICD Codes: Z74.09 - Other reduced mobility SNOMED: 8575495 Status: stable, progressing Assessment/Plan: follow up cultures iv abx per id ivf transfuse- left message with dtr monitor for bleeding vent as needed resp rx suctioning j tube feeds g port to gravity skin care sz rx bowel regime Subjective ROS Limited/Unobtainable: No Constitutional: Reports: malaise, weakness HEENT: Reports: no symptoms Cardiovascular: Reports: no symptoms Respiratory: Reports: cough, shortness of breath Gastrointestinal/Abdominal: Reports: no symptoms Genitourinary: Reports: no symptoms Neurologic/Psychiatric: Reports: pre-existing deficit, seizure Endocrine: Reports: no symptoms Hematologic/Lymphatic: Reports: no symptoms Allergies: Coded Allergies: CODEINE (Verified Allergy, Unknown, HIVES, 09/15/09) All Systems: reviewed and negative except above Subjective no events. wbc trending down. no fevers. +blood and sputum cultures noted. h/h going down. no bleeding. Objective Last 24 Hour Vital Signs Date Time Temp Pulse Resp B/P (MAP) Pulse Ox O2 Delivery O2 Flow Rate FiO2 05/09/19 07:37 98 T-Piece 5.0 28 05/09/19 07:36 89 21 98 T-Piece 6.0 28 05/09/19 07:34 89 21 98 T-Piece 5.0 28 102 26 97 05/09/19 07:00 91 22 112/49 (70) 99 05/09/19 06:00 94 22 144/69 (94) 99 05/09/19 05:00 94 23 139/57 (84) 99 05/09/19 04:00 90 05/09/19 04:00 T-piece 5.0 T-piece 5.0 T-piece 5.0 T-piece 5.0 05/09/19 04:00 5.0 28 05/09/19 04:00 93 22 136/54 (81) 100 05/09/19 03:28 96 24 99 T-Piece 5.0 28 94 26 99 05/09/19 03:00 91 24 129/57 (81) 98 05/09/19 02:00 93 22 147/59 (88) 96 05/09/19 01:00 100 T-Piece 5.0 28 05/09/19 01:00 97 25 136/58 (84) 97 05/09/19 00:00 98.8 93 24 118/49 (72) 98 05/09/19 00:00 T-piece 5.0 T-piece 5.0 T-piece 5.0 T-piece 5.0 05/08/19 23:28 93 21 100 T-Piece 5.0 28 91 24 100 05/08/19 23:00 89 24 115/61 (79) 100 05/08/19 22:00 93 23 145/63 (90) 99 05/08/19 21:00 114 21 136/121 (126) 97 05/08/19 20:00 T-piece 5.0 T-piece 5.0 T-piece 5.0 T-piece 5.0 05/08/19 20:00 95 05/08/19 20:00 97 23 125/57 (79) 100 05/08/19 20:00 5.0 28 05/08/19 19:40 98 T-Piece 5.0 28 05/08/19 19:40 103 23 100 T-Piece 5.0 28 101 24 100 05/08/19 19:00 99 26 121/55 (77) 98 05/08/19 18:00 105 26 125/51 (75) 98 05/08/19 17:00 109 26 119/51 (73) 97 05/08/19 16:00 99.8 114 27 124/58 (80) 95 05/08/19 16:00 115 05/08/19 16:00 5.0 28 05/08/19 16:00 T-piece 5.0 T-piece 5.0 T-piece 5.0 T-piece 5.0 05/08/19 15:00 115 28 128/57 (80) 97 05/08/19 14:40 118 21 99 T-Piece 5.0 28 110 25 97 05/08/19 14:00 112 25 125/96 (106) 97 05/08/19 13:00 119 27 138/54 (82) 100 05/08/19 12:30 98 T-Piece 5.0 28 05/08/19 12:30 159/61 05/08/19 12:00 5.0 28 05/08/19 12:00 T-piece 5.0 T-piece 5.0 T-piece 5.0 T-piece 5.0 05/08/19 12:00 99.7 120 28 159/61 (93) 97 05/08/19 12:00 104 05/08/19 11:00 100 24 120/47 (71) 96 05/08/19 10:55 102 21 100 T-Piece 5.0 28 105 24 98 05/08/19 10:00 100 30 127/51 (76) 100 05/08/19 09:00 90 22 99/61 (74) 100 Intake and Output 05/08/19 05/09/19 19:00 07:00 Intake Total 2693.208 ml 2413.7 ml Output Total 1575 ml 7200 ml Balance 1118.208 ml -4786.3 ml Free Water 160 ml IV Total 1933.208 ml 1373.7 ml Tube Feeding 720 ml 720 ml Other 40 ml 160 ml Output Urine Total 425 ml 300 ml Other 1150 ml 6900 ml Laboratory Tests 05/09/19 04:25: White Blood Count 14.5H, Red Blood Count 2.58L, Hemoglobin 7.6L, Hematocrit 23.0L, Mean Corpuscular Volume 89, Mean Corpuscular Hemoglobin 29.6, Mean Corpuscular Hemoglobin Concent 33.2, Red Cell Distribution Width 14.6, Platelet Count 141L, Mean Platelet Volume 7.4, Neutrophils (%) (Auto) , Lymphocytes (%) ( Auto) , Monocytes (%) (Auto) , Eosinophils (%) (Auto) , Basophils (%) (Auto) , Differential Total Cells Counted 100, Neutrophils % (Manual) 63, Lymphocytes % ( Manual) 24, Monocytes % (Manual) 9, Eosinophils % (Manual) 4H, Basophils % ( Manual) 0, Band Neutrophils 0, Platelet Estimate DecreasedL, Platelet Morphology Normal, Hypochromasia 1+, Anisocytosis 1+, Sodium Level 145, Potassium Level 4.1, Chloride Level 107, Carbon Dioxide Level 30, Anion Gap 8, Blood Urea Nitrogen 34H, Creatinine 0.9, Estimat Glomerular Filtration Rate , Glucose Level 178H, Calcium Level 8.5, Total Bilirubin 0.4, Aspartate Amino Transf (AST/SGOT) 125H, Alanine Aminotransferase (ALT/SGPT) 234H, Alkaline Phosphatase 216H, Total Protein 7.4, Albumin 2.2L, Globulin 5.2, Albumin/ Globulin Ratio 0.4L Height (Feet): 5 Height (Inches): 3.00 Weight (Pounds): 130 Objective General Appearance: WD/WN, confused. on trach collar Neck: supple Cardiovascular: normal rate, regular rhythm Respiratory/Chest: chest wall non-tender, rhonchi - bilaterally(minimal) Abdomen: normal bowel sounds, non tender, soft, no organomegaly Edema: no edema noted Arm (L), no edema noted Arm (R), no edema noted Leg (L), no edema noted Leg (R), no edema noted Pedal (L), no edema noted Pedal (R), no edema noted Generalized Neurologic: disoriented, unresponsive, aphasia Irvin Beltrán MD May 09, 2019 08:14
--- NOTE | 2019-05-09 08:15 | NUR ---
NURSE NOTES: SPOKE WITH DR CABA OVER THE PHONE THAT HE CALLED AND LEFT A MESSAGE TO PT'S DGT RE NEW ORDER. AWAITING FOR CALL BACK.
[2019-05-09] MEDS: Sorbitol Solution UD 30ml GT SCH (08:40)
[2019-05-09] MEDS: levETIRAcetam 500mg/5ml Liquid GT SCH ×2 (08:40→20:16)
[2019-05-09] MEDS: Heparin 5000 units/ml inj SUBQ SCH ×2 (08:41→20:17)
--- NOTE | 2019-05-09 10:54 | Infectious Diseases Prog Note ---
Assessment/Plan Assessment/Plan antibiotics : vancomycin iv, zosyn A 1. citrobacter pneumonia 2. gram negative sepsis 3. respiratory failure 4. hypertension 5. CVA 6. dementia 7. rectal VRE colonization 8. leucocytosis improving 9. shock P 1. zosyn started 2. d/c iv vancomycin 3. PICC line dc 4. will follow up cultures Subjective ROS Limited/Unobtainable: Yes Allergies: Coded Allergies: CODEINE (Verified Allergy, Unknown, HIVES, 09/15/09) Objective Vital Signs Last 24 Hour Vital Signs Date Time Temp Pulse Resp B/P (MAP) Pulse Ox O2 Delivery O2 Flow Rate FiO2 05/09/19 10:00 94 24 135/62 (86) 98 05/09/19 09:00 92 22 157/71 (99) 97 05/09/19 08:00 5.0 28 05/09/19 08:00 86 05/09/19 08:00 98.3 90 22 115/51 (72) 96 05/09/19 08:00 T-piece 5.0 T-piece 5.0 T-piece 5.0 T-piece 5.0 05/09/19 07:37 98 T-Piece 5.0 28 05/09/19 07:36 89 21 98 T-Piece 6.0 28 05/09/19 07:34 89 21 98 T-Piece 5.0 28 102 26 97 05/09/19 07:00 91 22 112/49 (70) 99 05/09/19 06:00 94 22 144/69 (94) 99 05/09/19 05:00 94 23 139/57 (84) 99 05/09/19 04:00 90 05/09/19 04:00 T-piece 5.0 T-piece 5.0 T-piece 5.0 T-piece 5.0 05/09/19 04:00 5.0 28 05/09/19 04:00 93 22 136/54 (81) 100 05/09/19 03:28 96 24 99 T-Piece 5.0 28 94 26 99 05/09/19 03:00 91 24 129/57 (81) 98 05/09/19 02:00 93 22 147/59 (88) 96 05/09/19 01:00 100 T-Piece 5.0 28 05/09/19 01:00 97 25 136/58 (84) 97 05/09/19 00:00 98.8 93 24 118/49 (72) 98 05/09/19 00:00 T-piece 5.0 T-piece 5.0 T-piece 5.0 T-piece 5.0 05/08/19 23:28 93 21 100 T-Piece 5.0 28 91 24 100 05/08/19 23:00 89 24 115/61 (79) 100 05/08/19 22:00 93 23 145/63 (90) 99 05/08/19 21:00 114 21 136/121 (126) 97 05/08/19 20:00 T-piece 5.0 T-piece 5.0 T-piece 5.0 T-piece 5.0 05/08/19 20:00 95 05/08/19 20:00 97 23 125/57 (79) 100 05/08/19 20:00 5.0 28 05/08/19 19:40 98 T-Piece 5.0 28 05/08/19 19:40 103 23 100 T-Piece 5.0 28 101 24 100 05/08/19 19:00 99 26 121/55 (77) 98 05/08/19 18:00 105 26 125/51 (75) 98 05/08/19 17:00 109 26 119/51 (73) 97 05/08/19 16:00 99.8 114 27 124/58 (80) 95 05/08/19 16:00 115 05/08/19 16:00 5.0 28 05/08/19 16:00 T-piece 5.0 T-piece 5.0 T-piece 5.0 T-piece 5.0 05/08/19 15:00 115 28 128/57 (80) 97 05/08/19 14:40 118 21 99 T-Piece 5.0 28 110 25 97 05/08/19 14:00 112 25 125/96 (106) 97 05/08/19 13:00 119 27 138/54 (82) 100 05/08/19 12:30 98 T-Piece 5.0 28 05/08/19 12:30 159/61 05/08/19 12:00 5.0 28 05/08/19 12:00 T-piece 5.0 T-piece 5.0 T-piece 5.0 T-piece 5.0 05/08/19 12:00 99.7 120 28 159/61 (93) 97 05/08/19 12:00 104 05/08/19 11:00 100 24 120/47 (71) 96 05/08/19 10:55 102 21 100 T-Piece 5.0 28 105 24 98 Height (Feet): 5 Height (Inches): 3.00 Weight (Pounds): 130 HEENT: status post trach Respiratory/Chest: rhonchi - bilaterally - decreased Cardiovascular: normal rate, regular rhythm, no gallop/murmur Abdomen: soft, non tender, other - GT Extremities: no edema Microbiology Date/Time Source Procedure Growth Status 05/07/19 10:45 Blood Blood Culture - Preliminary Resulted 05/07/19 10:00 Blood Blood Culture - Preliminary Gram Negative Denzel Resulted 05/07/19 21:30 Sputum Gram Stain - Final Resulted 05/07/19 21:30 Sputum Culture - Preliminary Gram Negative Denzel Resulted 05/07/19 18:30 Stool Clostridium difficile Toxin Assay - Final Complete 05/08/19 03:10 Urine,Clean Catch Urine Culture - Preliminary NO GROWTH AFTER 24 HOURS Resulted Laboratory Tests Test 05/09/19 04:25 White Blood Count 14.5 K/UL (4.8-10.8) H Red Blood Count 2.58 M/UL (4.20-5.40) L Hemoglobin 7.6 G/DL (12.0-16.0) L Hematocrit 23.0 % (37.0-47.0) L Mean Corpuscular Volume 89 FL (80-99) Mean Corpuscular Hemoglobin 29.6 PG (27.0-31.0) Mean Corpuscular Hemoglobin Concent 33.2 G/DL (32.0-36.0) Red Cell Distribution Width 14.6 % (11.6-14.8) Platelet Count 141 K/UL (150-450) L Mean Platelet Volume 7.4 FL (6.5-10.1) Neutrophils (%) (Auto) % (45.0-75.0) Lymphocytes (%) (Auto) % (20.0-45.0) Monocytes (%) (Auto) % (1.0-10.0) Eosinophils (%) (Auto) % (0.0-3.0) Basophils (%) (Auto) % (0.0-2.0) Differential Total Cells Counted 100 Neutrophils % (Manual) 63 % (45-75) Lymphocytes % (Manual) 24 % (20-45) Monocytes % (Manual) 9 % (1-10) Eosinophils % (Manual) 4 % (0-3) H Basophils % (Manual) 0 % (0-2) Band Neutrophils 0 % (0-8) Platelet Estimate Decreased L Platelet Morphology Normal Hypochromasia 1+ Anisocytosis 1+ Sodium Level 145 MMOL/L (136-145) Potassium Level 4.1 MMOL/L (3.5-5.1) Chloride Level 107 MMOL/L (98-107) Carbon Dioxide Level 30 MMOL/L (21-32) Anion Gap 8 mmol/L (5-15) Blood Urea Nitrogen 34 mg/dL (7-18) H Creatinine 0.9 MG/DL (0.55-1.30) Estimat Glomerular Filtration Rate mL/min (>60) Glucose Level 178 MG/DL (74-106) H Calcium Level 8.5 MG/DL (8.5-10.1) Total Bilirubin 0.4 MG/DL (0.2-1.0) Aspartate Amino Transf (AST/SGOT) 125 U/L (15-37) H Alanine Aminotransferase (ALT/SGPT) 234 U/L (12-78) H Alkaline Phosphatase 216 U/L (46-116) H Total Protein 7.4 G/DL (6.4-8.2) Albumin 2.2 G/DL (3.4-5.0) L Globulin 5.2 g/dL Albumin/Globulin Ratio 0.4 (1.0-2.7) L Current Medications Medications (Trade) Dose Ordered Sig/Maicol Route PRN Reason Start Time Stop Time Status Last Admin Dose Admin Acetaminophen (Tylenol) 650 mg Q4H PRN RECTAL T>100.5 / Mild Pain 05/07/19 09:45 06/06/19 09:44 05/07/19 10:13 Albuterol/ Ipratropium (Albuterol/ Ipratropium) 3 ml Q4HRT HHN 05/05/19 19:00 05/10/19 18:59 05/09/19 07:09 Chlorhexidine Gluconate (Cesilia-Hex 2%) 1 applic DAILY@1999 TOPIC 04/12/19 20:00 05/12/19 19:59 05/08/19 20:55 Dextrose/Sodium Chloride 1,000 ml @ 100 mls/hr Q10H IV 05/07/19 20:15 06/06/19 20:14 05/08/19 16:11 Heparin Sodium (Porcine) (Heparin 5000 units/ml) 5,000 units EVERY 12 HOURS SUBQ 05/01/19 21:00 05/31/19 20:59 05/08/19 21:16 Levetiracetam (Keppra) 500 mg Q12HR GT 05/01/19 21:00 05/28/19 08:59 05/09/19 08:40 Norepinephrine Bitartrate 4 mg/ Dextrose 250 ml @ 0 mls/hr Q24H IV 05/07/19 12:30 06/06/19 12:29 05/07/19 12:24 Piperacillin Sod/ Tazobactam Sod 3.375 gm/Sodium Chloride 110 ml @ 27.5 mls/hr EVERY 8 HOURS IVPB 05/08/19 14:00 05/13/19 13:59 05/09/19 05:41 Sorbitol (Sorbitol) 30 ml BIDPRN PRN ORAL Constipation 04/13/19 11:15 05/13/19 11:14 Sorbitol (sorbitoL) 30 ml DAILY GT 04/14/19 09:00 05/14/19 08:59 05/09/19 08:40 Vancomycin HCl (Vanco rx to dose) 1 ea DAILY PRN MISC Per rx protocol 05/07/19 13:15 06/06/19 13:14 Vancomycin HCl 1 gm/Dextrose 275 ml @ 183.708 mls/hr Q24H IVPB 05/07/19 15:00 05/12/19 14:59 05/08/19 14:33 Geovany Yang MD May 09, 2019 10:54
--- NOTE | 2019-05-09 11:12 | Nephrology Progress Note ---
Assessment/Plan Problem List: (1) Acute renal failure (ARF) Assessment: Cr stable (2) Chronic respiratory failure (3) Anemia (4) Sepsis Assessment Acute renal failure Respiratory failure - Trach Low Mag- Low k , Low Na Anemia UTI / Sepsis Proteinuria / HypoAlbuminemia high Trigs Sz decubs bed bound DNR Plan Transfused previously- ? again? now has JT bolus Albumin as needed K and Mag and Phos supplement as needed Hydrate as needed Urine studies avoid Nephrotoxics mag K Phos supplements as needed monitor renal parameters Subjective ROS Limited/Unobtainable: Yes Objective Objective Last 24 Hour Vital Signs Date Time Temp Pulse Resp B/P (MAP) Pulse Ox O2 Delivery O2 Flow Rate FiO2 05/09/19 10:00 94 24 135/62 (86) 98 05/09/19 09:00 92 22 157/71 (99) 97 05/09/19 08:00 5.0 28 05/09/19 08:00 86 05/09/19 08:00 98.3 90 22 115/51 (72) 96 05/09/19 08:00 T-piece 5.0 T-piece 5.0 T-piece 5.0 T-piece 5.0 05/09/19 07:37 98 T-Piece 5.0 28 05/09/19 07:36 89 21 98 T-Piece 6.0 28 05/09/19 07:34 89 21 98 T-Piece 5.0 28 102 26 97 05/09/19 07:00 91 22 112/49 (70) 99 05/09/19 06:00 94 22 144/69 (94) 99 05/09/19 05:00 94 23 139/57 (84) 99 05/09/19 04:00 90 05/09/19 04:00 T-piece 5.0 T-piece 5.0 T-piece 5.0 T-piece 5.0 05/09/19 04:00 5.0 28 05/09/19 04:00 93 22 136/54 (81) 100 05/09/19 03:28 96 24 99 T-Piece 5.0 28 94 26 99 05/09/19 03:00 91 24 129/57 (81) 98 05/09/19 02:00 93 22 147/59 (88) 96 05/09/19 01:00 100 T-Piece 5.0 28 05/09/19 01:00 97 25 136/58 (84) 97 05/09/19 00:00 98.8 93 24 118/49 (72) 98 05/09/19 00:00 T-piece 5.0 T-piece 5.0 T-piece 5.0 T-piece 5.0 05/08/19 23:28 93 21 100 T-Piece 5.0 28 91 24 100 05/08/19 23:00 89 24 115/61 (79) 100 05/08/19 22:00 93 23 145/63 (90) 99 05/08/19 21:00 114 21 136/121 (126) 97 05/08/19 20:00 T-piece 5.0 T-piece 5.0 T-piece 5.0 T-piece 5.0 05/08/19 20:00 95 05/08/19 20:00 97 23 125/57 (79) 100 05/08/19 20:00 5.0 28 05/08/19 19:40 98 T-Piece 5.0 28 05/08/19 19:40 103 23 100 T-Piece 5.0 28 101 24 100 05/08/19 19:00 99 26 121/55 (77) 98 05/08/19 18:00 105 26 125/51 (75) 98 05/08/19 17:00 109 26 119/51 (73) 97 05/08/19 16:00 99.8 114 27 124/58 (80) 95 05/08/19 16:00 115 05/08/19 16:00 5.0 28 05/08/19 16:00 T-piece 5.0 T-piece 5.0 T-piece 5.0 T-piece 5.0 05/08/19 15:00 115 28 128/57 (80) 97 05/08/19 14:40 118 21 99 T-Piece 5.0 28 110 25 97 05/08/19 14:00 112 25 125/96 (106) 97 05/08/19 13:00 119 27 138/54 (82) 100 05/08/19 12:30 98 T-Piece 5.0 28 05/08/19 12:30 159/61 05/08/19 12:00 5.0 28 05/08/19 12:00 T-piece 5.0 T-piece 5.0 T-piece 5.0 T-piece 5.0 05/08/19 12:00 99.7 120 28 159/61 (93) 97 05/08/19 12:00 104 Intake and Output 05/08/19 05/09/19 19:00 07:00 Intake Total 2693.208 ml 2413.7 ml Output Total 1575 ml 7200 ml Balance 1118.208 ml -4786.3 ml Free Water 160 ml IV Total 1933.208 ml 1373.7 ml Tube Feeding 720 ml 720 ml Other 40 ml 160 ml Output Urine Total 425 ml 300 ml Other 1150 ml 6900 ml Laboratory Tests 05/09/19 04:25: White Blood Count 14.5H, Red Blood Count 2.58L, Hemoglobin 7.6L, Hematocrit 23.0L, Mean Corpuscular Volume 89, Mean Corpuscular Hemoglobin 29.6, Mean Corpuscular Hemoglobin Concent 33.2, Red Cell Distribution Width 14.6, Platelet Count 141L, Mean Platelet Volume 7.4, Neutrophils (%) (Auto) , Lymphocytes (%) ( Auto) , Monocytes (%) (Auto) , Eosinophils (%) (Auto) , Basophils (%) (Auto) , Differential Total Cells Counted 100, Neutrophils % (Manual) 63, Lymphocytes % ( Manual) 24, Monocytes % (Manual) 9, Eosinophils % (Manual) 4H, Basophils % ( Manual) 0, Band Neutrophils 0, Platelet Estimate DecreasedL, Platelet Morphology Normal, Hypochromasia 1+, Anisocytosis 1+, Sodium Level 145, Potassium Level 4.1, Chloride Level 107, Carbon Dioxide Level 30, Anion Gap 8, Blood Urea Nitrogen 34H, Creatinine 0.9, Estimat Glomerular Filtration Rate , Glucose Level 178H, Calcium Level 8.5, Total Bilirubin 0.4, Aspartate Amino Transf (AST/SGOT) 125H, Alanine Aminotransferase (ALT/SGPT) 234H, Alkaline Phosphatase 216H, Total Protein 7.4, Albumin 2.2L, Globulin 5.2, Albumin/ Globulin Ratio 0.4L Height (Feet): 5 Height (Inches): 3.00 Weight (Pounds): 130 General Appearance: no apparent distress EENT: other - O2 to trach Respiratory/Chest: decreased breath sounds Abdomen: soft Objective no change Eric Cortez MD May 09, 2019 11:12
--- NOTE | 2019-05-09 11:45 | NUR ---
NURSE NOTES: ON-GOING BLOOD TRANSFUSION, TOLERATING AND NO SIGNS OF DISTRESS OF THE MOMENT. VSS. WILL CONTINUE TO MONITOR.
[2019-05-09] MEDS ORDERED: D5NS 1000ml IV ONE (13:04)
[2019-05-09] MEDS ORDERED: NS 275ml ONE (13:04)
[2019-05-09] MEDS ORDERED: Tubing IV Secondary IV ONE (13:04)
[2019-05-09] MEDS ORDERED: 1/2 NS 1000ml IV ONE (13:04)
--- NOTE | 2019-05-09 14:00 | NUR ---
NURSE NOTES: BLOOD TRANSFUSION DONE. NO REACTION NOTED DURING TRANSFUSION. SUCTIONED AND REPOSITIONED PATIENT. WILL CONTINUE TO MONITOR.
--- NOTE | 2019-05-09 16:00 | NUR ---
NURSE NOTES: TURNED AND REPOSITIONED PT. NOT IN RESPI OR CARDIO DISTRESS OF THIS MOMENT. WILL CONTINUE TO MONITOR.
--- NOTE | 2019-05-09 18:00 | NUR ---
NURSE NOTES: SUCTIONED SECRETION. NOTED COPIOUS AMT OF WHITE SECRETION. WILL CONTINUE TO MONITOR.
--- NOTE | 2019-05-09 19:22 | NUR ---
HAND-OFF: Report given to Kodak Armstrong RN.
--- NOTE | 2019-05-09 19:23 | NUR ---
RESPIRATORY NOTE: Received pt on 28% Cool Aerosol via T-Piece. Pt is trach-dependent w/ a cuffed, Shiley 6 XLT tube, cuff is currently deflated. Pt awake, responds to stimuli. B/S flory. rhonchi, sxn small to moderate amounts of thin, white to pale-yellow secretions. Daughter present at bedside. [place] at bedside. Pt resting comfortably, in no apparent distress at this time. Will continue to monitor pt.
--- NOTE | 2019-05-09 19:53 | Pulmonolgy Critical Care Note ---
Critical Care - Asmt/Plan Assessment/Plan: Pulmonary CCM Progress Note Assessment/Plan Impression: history of Sepsis history of Pneumonia Trach, G tube, Hypertension, Cardiac disease, Dementia, Previous CVA, Seizure disorder, Respiratory failure with hypoxia Anemia, Sacral ulcer renal cyst chronic pulmonary congestion Plan continue with respiratory care monitor protein levels and adjust monitor imaging for change monitor labs and reflux aspiration ;monitor residuals elevate head and monitor secretions DNR. No CPR. ICU care reviewed meds noted and updated neb therapy off load as able nutrition/fees/ dietary skin care difficulty with placement monitor residual and reflux aspiration all changes noted and discussed chronic management reviewed medications/laboratory data/nursing notes/ICU care reviewed in detail note reviewed and edited care discussed with RN and RT Objective Vital Signs Noted Objective WDWN NAD contracted off vent reduced breath sounds bilaterally with some rhonchi; no wheeze [id number] without MRG NABS nontender no HSM no CC minimal nonfocal nonverbal trach and gt reviewed and edited Laboratory Tests Noted Critical Care - Objective Last 24 Hour Vital Signs Date Time Temp Pulse Resp B/P (MAP) Pulse Ox O2 Delivery O2 Flow Rate FiO2 05/09/19 19:30 91 22 100 T-Piece 5.0 28 05/09/19 19:20 89 25 99 T-Piece 5.0 28 05/09/19 19:20 99 T-Piece 5.0 28 05/09/19 19:00 81 23 142/67 (92) 98 05/09/19 18:00 91 21 155/64 (94) 99 05/09/19 17:00 91 23 132/68 (89) 98 05/09/19 16:00 T-piece 5.0 T-piece 5.0 T-piece 5.0 T-piece 5.0 05/09/19 16:00 93 05/09/19 16:00 5.0 28 05/09/19 16:00 98.1 87 23 121/52 (75) 96 05/09/19 15:00 97 24 150/70 (96) 97 05/09/19 14:43 82 24 99 T-Piece 5.0 28 87 24 97 05/09/19 14:00 87 24 136/60 (85) 96 05/09/19 13:25 99 T-Piece 5.0 28 05/09/19 13:00 93 23 142/65 (90) 97 05/09/19 12:00 5.0 28 05/09/19 12:00 94 05/09/19 12:00 T-piece 5.0 T-piece 5.0 T-piece 5.0 T-piece 5.0 05/09/19 12:00 98.7 97 26 148/64 (92) 96 05/09/19 11:14 92 23 99 T-Piece 5.0 28 90 25 98 05/09/19 11:00 94 25 142/64 (90) 99 05/09/19 10:00 94 24 135/62 (86) 98 05/09/19 09:00 92 22 157/71 (99) 97 05/09/19 08:00 5.0 28 05/09/19 08:00 86 05/09/19 08:00 98.3 90 22 115/51 (72) 96 05/09/19 08:00 T-piece 5.0 T-piece 5.0 T-piece 5.0 T-piece 5.0 05/09/19 07:37 98 T-Piece 5.0 28 05/09/19 07:36 89 21 98 T-Piece 6.0 28 05/09/19 07:34 89 21 98 T-Piece 5.0 28 102 26 97 05/09/19 07:00 91 22 112/49 (70) 99 05/09/19 06:00 94 22 144/69 (94) 99 05/09/19 05:00 94 23 139/57 (84) 99 05/09/19 04:00 90 05/09/19 04:00 T-piece 5.0 T-piece 5.0 T-piece 5.0 T-piece 5.0 05/09/19 04:00 5.0 28 05/09/19 04:00 93 22 136/54 (81) 100 05/09/19 03:28 96 24 99 T-Piece 5.0 28 94 26 99 05/09/19 03:00 91 24 129/57 (81) 98 05/09/19 02:00 93 22 147/59 (88) 96 05/09/19 01:00 100 T-Piece 5.0 28 05/09/19 01:00 97 25 136/58 (84) 97 05/09/19 00:00 98.8 93 24 118/49 (72) 98 05/09/19 00:00 T-piece 5.0 T-piece 5.0 T-piece 5.0 T-piece 5.0 05/08/19 23:28 93 21 100 T-Piece 5.0 28 91 24 100 05/08/19 23:00 89 24 115/61 (79) 100 05/08/19 22:00 93 23 145/63 (90) 99 05/08/19 21:00 114 21 136/121 (126) 97 05/08/19 20:00 T-piece 5.0 T-piece 5.0 T-piece 5.0 T-piece 5.0 05/08/19 20:00 95 05/08/19 20:00 97 23 125/57 (79) 100 05/08/19 20:00 5.0 28 Micro: Microbiology Date/Time Source Procedure Growth Status 05/07/19 10:45 Blood Blood Culture - Preliminary Resulted 05/07/19 10:00 Blood Blood Culture - Preliminary Gram Negative Denzel Resulted 05/07/19 21:30 Sputum Gram Stain - Final Resulted 05/07/19 21:30 Sputum Culture - Preliminary Gram Negative Denzel Resulted 05/07/19 18:30 Stool Clostridium difficile Toxin Assay - Final Complete 05/08/19 03:10 Urine,Clean Catch Urine Culture - Preliminary NO GROWTH AFTER 24 HOURS Resulted Accucheck: 110 Critical Care - Subjective ROS Limited/Unobtainable: No Condition: stable EKG Rhythm: Sinus Rhythm FI02: 28 Vent Support Mode: CPAP Vent Tidal Volume: 450 Sputum Amount: Moderate PEEP: 5.0 PIP: 19 Tube Feeding Amount: 60 I&O: Intake and Output 05/08/19 05/09/19 19:00 07:00 Intake Total 2693.208 ml 2413.7 ml Output Total 1575 ml 7200 ml Balance 1118.208 ml -4786.3 ml Free Water 160 ml IV Total 1933.208 ml 1373.7 ml Tube Feeding 720 ml 720 ml Other 40 ml 160 ml Output Urine Total 425 ml 300 ml Other 1150 ml 6900 ml ET-Tube: 6.0 Bg Moffett MD May 09, 2019 19:53
--- NOTE | 2019-05-09 20:00 | NUR ---
NURSE NOTES: SBAR from Deirdre RN. Patient is semi-fowlers 30 degree position. Awake at this time, non-verbal, does not track with eyes on command, responds to painful stimulus. T-piece Shiley 6 XLT, Connected to cool aerosol 28%/5L. HR is 88 NSR, 142/88, Spo2 98%, breathing pattern normal, 98.3F (ax), cool to touch. No signs of distress at this time. J-GT in place. J tube running Vital at 60ml/hr, G-tube draining to gravity. Purewick to suction, Skin alterations noted, p200 mattress noted, PIV right hand 20G, Patent, intact and asymptomatic. Infusing D5NS at 100ml/hr. Call light within reach, safety measures in place, will continue to monitor.
[2019-05-09] MEDS: Dyna-Hex 2% Top Sol 2oz TOPIC SCH (20:16)
--- NOTE | 2019-05-09 22:00 | NUR ---
NURSE NOTES: Repositioned Suctioned 100cc GT flushed Afebrile PIV remains intact, patent and asymptomatic. NAD, vitals stable.
[2019-05-10] VITALS (24 sets, daily range): BP systolic 119–171; BP diastolic 53–86
--- NOTE | 2019-05-10 | NUR ---
NURSE NOTES: Repositioned Suctioned Afebrile PIV remains intact, patent and asymptomatic. NAD, vitals stable.
--- NOTE | 2019-05-10 02:00 | NUR ---
NURSE NOTES: Repositioned afebrile VS are stable deep and oral suctioning
[2019-05-10] MEDS: Albuterol/Ipratropium 3ml neb HHN SCH ×5 (03:06→20:34)
--- NOTE | 2019-05-10 04:00 | NUR ---
NURSE NOTES: Sponge bath given blood drawn and sent to lab Oral care performed IV line remains patent, intact and asymptomatic. NAD at this time
[2019-05-10 05:48] LABS: BASOPHILS % (AUTO) 0.7 % (0.0-2.0); EOSINOPHILS % (AUTO) 2.4 % (0.0-3.0); HEMATOCRIT 30.1 % (37.0-47.0); HEMOGLOBIN 9.9 G/DL (12.0-16.0); LYMPHOCYTES % (AUTO) 21.1 % (20.0-45.0); MEAN CORPUSCULAR VOLUME 88 FL (80-99); MONOCYTES % (AUTO) 10.3 % (1.0-10.0); NEUTROPHILS % (AUTO) 65.6 % (45.0-75.0); PLATELET COUNT 149 K/UL (150-450); RED BLOOD COUNT 3.44 M/UL (4.20-5.40); RED CELL DISTRIBUTION WIDTH 15.8 % (11.6-14.8); WHITE BLOOD COUNT 10.1 K/UL (4.8-10.8)
[2019-05-10] MEDS: D5NS 1,000 ML IV SCH ×2 (06:00→17:20)
[2019-05-10] MEDS: Piperacillin/Tazobactam 3.375 GM in NS 110 ML IVPB SCH (06:00)
--- NOTE | 2019-05-10 06:00 | NUR ---
NURSE NOTES: Repositioned orl and deep suctioning Afebrile NAD Vitals stable
[2019-05-10 06:19] LABS: ALANINE AMINOTRANSFERASE 277 U/L (12-78); ALBUMIN 2.3 G/DL (3.4-5.0); ALBUMIN/GLOBULIN RATIO 0.4 (1.0-2.7); ALKALINE PHOSPHATASE 224 U/L (46-116); ANION GAP 5 mmol/L (5-15); ASPARTATE AMINO TRANSFERASE 121 U/L (15-37); BILIRUBIN,TOTAL 0.4 MG/DL (0.2-1.0); BLOOD UREA NITROGEN 27 mg/dL (7-18); CALCIUM 9.2 MG/DL (8.5-10.1); CARBON DIOXIDE 33 MMOL/L (21-32); CHLORIDE 111 MMOL/L (98-107); CREATININE 0.8 MG/DL (0.55-1.30); POTASSIUM 4.3 MMOL/L (3.5-5.1); SODIUM 149 MMOL/L (136-145)
--- NOTE | 2019-05-10 07:15 | NUR ---
NURSE NOTES: Received report from JEANNINE Milan. Patient is obtunded. Shiley 6 with FiO2 28%. GJ tube intact and running with Vital AF 1.2 @ 60ml/hr. Purewick intact and connected to suction canister. Right Hand 20G IV intact and running with D5NS 100ml/hr. Kept dry, clean, comfortable and HOB>30. Will continue plan of care.
--- NOTE | 2019-05-10 07:33 | NUR ---
HAND-OFF: Report given to Joseph PAEZ.
--- NOTE | 2019-05-10 08:06 | NUR ---
NURSE NOTES: Repositioned patient.
[2019-05-10] MEDS: Heparin 5000 units/ml inj SUBQ SCH ×2 (09:00→20:00)
[2019-05-10] MEDS: Sorbitol Solution UD 30ml GT SCH (09:02)
[2019-05-10] MEDS: levETIRAcetam 500mg/5ml Liquid GT SCH ×2 (09:02→19:59)
--- NOTE | 2019-05-10 09:10 | General Progress Note ---
Assessment/Plan Status: stable, progressing Assessment/Plan: Assessment/Plan Status: stable, progressing Assessment/Plan: Assessment - High grade GNR bacteremia, ? 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 - Anemia with OB (-) stools - Resp failure, s/p Trach - dysphagia, s/p PEG --> GJ tube - OBS, vegetative obtunded unresponsive state, bedbound with contracted extremities, - h/o minor GJ tube site irritation - poor Prognosis Recommendations - agree with D/C central line - abx per ID - daily sorbitol, and PRN sorbitol - Cristian BID - antibiotic ointment to GJT site PRN - aspiration precautions - elevate HOB - Vital AF 1.2 - check q 6 hour FS - transfuse to keep Hg > 7 - J tube feeds - G tube drain - IVF - check ESR --> elevated - further evaluation for autoimmune hepatitis (anti DNA, ASMA) - not candidate for immune suppression at this time Subjective ROS Limited/Unobtainable: No Allergies: Coded Allergies: CODEINE (Verified Allergy, Unknown, HIVES, 09/15/09) Objective Last 24 Hour Vital Signs Date Time Temp Pulse Resp B/P (MAP) Pulse Ox O2 Delivery O2 Flow Rate FiO2 05/10/19 07:11 84 22 100 T-Piece 5.0 28 81 20 98 05/10/19 07:02 98 T-Piece 5.0 28 05/10/19 07:00 95 25 148/78 (101) 100 05/10/19 06:00 89 21 148/78 (101) 98 05/10/19 05:00 85 21 162/69 (100) 99 05/10/19 04:00 85 05/10/19 04:00 99.2 88 21 169/82 (111) 100 05/10/19 04:00 5.0 28 05/10/19 04:00 T-piece 5.0 T-piece 5.0 T-piece 5.0 T-piece 5.0 05/10/19 03:16 94 24 100 T-Piece 5.0 28 05/10/19 03:06 90 23 100 T-Piece 5.0 28 05/10/19 03:00 87 20 160/75 (103) 99 05/10/19 02:00 90 22 144/63 (90) 98 05/10/19 01:10 99 T-Piece 5.0 28 05/10/19 01:00 89 23 125/60 (81) 97 05/10/19 00:00 T-piece 5.0 T-piece 5.0 T-piece 5.0 T-piece 5.0 05/10/19 00:00 98.8 92 23 119/53 (75) 95 05/10/19 00:00 5.0 28 05/10/19 00:00 94 05/09/19 23:16 90 23 99 T-Piece 5.0 28 05/09/19 23:06 92 24 99 T-Piece 5.0 28 05/09/19 23:00 93 25 142/61 (88) 100 05/09/19 22:00 89 23 143/59 (87) 97 05/09/19 21:00 90 22 158/65 (96) 98 05/09/19 20:00 T-piece 5.0 T-piece 5.0 T-piece 5.0 T-piece 5.0 05/09/19 20:00 5.0 28 05/09/19 20:00 88 05/09/19 20:00 98.3 87 20 145/58 (87) 99 05/09/19 19:30 91 22 100 T-Piece 5.0 28 05/09/19 19:20 89 25 99 T-Piece 5.0 28 05/09/19 19:20 99 T-Piece 5.0 28 05/09/19 19:00 81 23 142/67 (92) 98 05/09/19 18:00 91 21 155/64 (94) 99 05/09/19 17:00 91 23 132/68 (89) 98 05/09/19 16:00 T-piece 5.0 T-piece 5.0 T-piece 5.0 T-piece 5.0 05/09/19 16:00 93 05/09/19 16:00 5.0 28 05/09/19 16:00 98.1 87 23 121/52 (75) 96 05/09/19 15:00 97 24 150/70 (96) 97 05/09/19 14:43 82 24 99 T-Piece 5.0 28 87 24 97 05/09/19 14:00 87 24 136/60 (85) 96 05/09/19 13:25 99 T-Piece 5.0 28 05/09/19 13:00 93 23 142/65 (90) 97 05/09/19 12:00 5.0 28 05/09/19 12:00 94 05/09/19 12:00 T-piece 5.0 T-piece 5.0 T-piece 5.0 T-piece 5.0 05/09/19 12:00 98.7 97 26 148/64 (92) 96 05/09/19 11:14 92 23 99 T-Piece 5.0 28 90 25 98 05/09/19 11:00 94 25 142/64 (90) 99 05/09/19 10:00 94 24 135/62 (86) 98 Intake and Output 05/09/19 05/10/19 19:00 07:00 Intake Total 1880.5 ml 2230.0 ml Output Total 1200 ml 700 ml Balance 680.5 ml 1530.0 ml Free Water 250 ml 400 ml IV Total 660.5 ml 1110.0 ml Tube Feeding 720 ml 720 ml Blood Product 250 ml Output Urine Total 500 ml 700 ml Other 700 ml # Bowel Movements 11 Laboratory Tests 05/10/19 04:45: White Blood Count 10.1, Red Blood Count 3.44L, Hemoglobin 9.9#L, Hematocrit 30.1 #L, Mean Corpuscular Volume 88, Mean Corpuscular Hemoglobin 28.8, Mean Corpuscular Hemoglobin Concent 32.9, Red Cell Distribution Width 15.8H, Platelet Count 149L, Mean Platelet Volume 5.4L, Neutrophils (%) (Auto) 65.6, Lymphocytes (%) (Auto) 21.1, Monocytes (%) (Auto) 10.3H, Eosinophils (%) (Auto) 2.4, Basophils (%) (Auto) 0.7, Sodium Level 149H, Potassium Level 4.3, Chloride Level 111H, Carbon Dioxide Level 33H, Anion Gap 5, Blood Urea Nitrogen 27H, Creatinine 0.8, Estimat Glomerular Filtration Rate , Glucose Level 122H, Calcium Level 9.2, Total Bilirubin 0.4, Aspartate Amino Transf (AST/SGOT) 121H, Alanine Aminotransferase (ALT/SGPT) 277H, Alkaline Phosphatase 224H, Total Protein 7.8, Albumin 2.3L, Globulin 5.5, Albumin/Globulin Ratio 0.4L Height (Feet): 5 Height (Inches): 3.00 Weight (Pounds): 129 General Appearance: alert EENT: normal ENT inspection Neck: supple Cardiovascular: normal rate Respiratory/Chest: decreased breath sounds Abdomen: normal bowel sounds, non tender, soft Extremities: non-tender Gary Guzman MD May 10, 2019 09:10
--- NOTE | 2019-05-10 09:40 | NUR ---
NURSE NOTES: All meds given via Gtube and clamped. Will continue plan of care.
--- NOTE | 2019-05-10 10:05 | NUR ---
NURSE NOTES: Repositioned patient and oral, trach suction given.
--- NOTE | 2019-05-10 11:50 | Nephrology Progress Note ---
Assessment/Plan Problem List: (1) Acute renal failure (ARF) Assessment: Cr stable (2) Chronic respiratory failure (3) Anemia (4) Sepsis Assessment Acute renal failure Respiratory failure - Trach Low Mag- Low k , Low Na Anemia UTI / Sepsis Proteinuria / HypoAlbuminemia high Trigs Sz decubs bed bound DNR Plan Transfused 05/09 now has JT bolus Albumin as needed K and Mag and Phos supplement as needed Hydrate as needed Urine studies avoid Nephrotoxics mag K Phos supplements as needed monitor renal parameters Subjective ROS Limited/Unobtainable: Yes Objective Objective Last 24 Hour Vital Signs Date Time Temp Pulse Resp B/P (MAP) Pulse Ox O2 Delivery O2 Flow Rate FiO2 05/10/19 10:45 88 20 100 T-Piece 5.0 28 81 21 96 05/10/19 09:00 82 23 133/59 (83) 99 05/10/19 08:00 T-piece 5.0 T-piece 5.0 T-piece 5.0 T-piece 5.0 05/10/19 08:00 97.7 90 17 128/55 (79) 95 05/10/19 08:00 5.0 28 05/10/19 07:11 84 22 100 T-Piece 5.0 28 81 20 98 05/10/19 07:02 98 T-Piece 5.0 28 05/10/19 07:00 95 25 148/78 (101) 100 05/10/19 06:00 89 21 148/78 (101) 98 05/10/19 05:00 85 21 162/69 (100) 99 05/10/19 04:00 85 05/10/19 04:00 99.2 88 21 169/82 (111) 100 05/10/19 04:00 5.0 28 05/10/19 04:00 T-piece 5.0 T-piece 5.0 T-piece 5.0 T-piece 5.0 05/10/19 03:16 94 24 100 T-Piece 5.0 28 05/10/19 03:06 90 23 100 T-Piece 5.0 28 05/10/19 03:00 87 20 160/75 (103) 99 05/10/19 02:00 90 22 144/63 (90) 98 05/10/19 01:10 99 T-Piece 5.0 28 05/10/19 01:00 89 23 125/60 (81) 97 05/10/19 00:00 T-piece 5.0 T-piece 5.0 T-piece 5.0 T-piece 5.0 05/10/19 00:00 98.8 92 23 119/53 (75) 95 05/10/19 00:00 5.0 28 05/10/19 00:00 94 05/09/19 23:16 90 23 99 T-Piece 5.0 28 05/09/19 23:06 92 24 99 T-Piece 5.0 28 05/09/19 23:00 93 25 142/61 (88) 100 05/09/19 22:00 89 23 143/59 (87) 97 05/09/19 21:00 90 22 158/65 (96) 98 05/09/19 20:00 T-piece 5.0 T-piece 5.0 T-piece 5.0 T-piece 5.0 05/09/19 20:00 5.0 28 05/09/19 20:00 88 05/09/19 20:00 98.3 87 20 145/58 (87) 99 05/09/19 19:30 91 22 100 T-Piece 5.0 28 05/09/19 19:20 89 25 99 T-Piece 5.0 28 05/09/19 19:20 99 T-Piece 5.0 28 05/09/19 19:00 81 23 142/67 (92) 98 05/09/19 18:00 91 21 155/64 (94) 99 05/09/19 17:00 91 23 132/68 (89) 98 05/09/19 16:00 T-piece 5.0 T-piece 5.0 T-piece 5.0 T-piece 5.0 05/09/19 16:00 93 05/09/19 16:00 5.0 28 05/09/19 16:00 98.1 87 23 121/52 (75) 96 05/09/19 15:00 97 24 150/70 (96) 97 05/09/19 14:43 82 24 99 T-Piece 5.0 28 87 24 97 05/09/19 14:00 87 24 136/60 (85) 96 05/09/19 13:25 99 T-Piece 5.0 28 05/09/19 13:00 93 23 142/65 (90) 97 2/8/20 12:00 5.0 28 05/09/19 12:00 94 05/09/19 12:00 T-piece 5.0 T-piece 5.0 T-piece 5.0 T-piece 5.0 05/09/19 12:00 98.7 97 26 148/64 (92) 96 Intake and Output 05/09/19 05/10/19 19:00 07:00 Intake Total 1880.5 ml 2230.0 ml Output Total 1200 ml 700 ml Balance 680.5 ml 1530.0 ml Free Water 250 ml 400 ml IV Total 660.5 ml 1110.0 ml Tube Feeding 720 ml 720 ml Blood Product 250 ml Output Urine Total 500 ml 700 ml Other 700 ml # Bowel Movements 11 Laboratory Tests 05/10/19 04:45: White Blood Count 10.1, Red Blood Count 3.44L, Hemoglobin 9.9#L, Hematocrit 30.1 #L, Mean Corpuscular Volume 88, Mean Corpuscular Hemoglobin 28.8, Mean Corpuscular Hemoglobin Concent 32.9, Red Cell Distribution Width 15.8H, Platelet Count 149L, Mean Platelet Volume 5.4L, Neutrophils (%) (Auto) 65.6, Lymphocytes (%) (Auto) 21.1, Monocytes (%) (Auto) 10.3H, Eosinophils (%) (Auto) 2.4, Basophils (%) (Auto) 0.7, Sodium Level 149H, Potassium Level 4.3, Chloride Level 111H, Carbon Dioxide Level 33H, Anion Gap 5, Blood Urea Nitrogen 27H, Creatinine 0.8, Estimat Glomerular Filtration Rate , Glucose Level 122H, Calcium Level 9.2, Total Bilirubin 0.4, Aspartate Amino Transf (AST/SGOT) 121H, Alanine Aminotransferase (ALT/SGPT) 277H, Alkaline Phosphatase 224H, Total Protein 7.8, Albumin 2.3L, Globulin 5.5, Albumin/Globulin Ratio 0.4L Height (Feet): 5 Height (Inches): 3.00 Weight (Pounds): 129 EENT: other - trach to O2 Cardiovascular: normal rate Respiratory/Chest: decreased breath sounds Abdomen: soft Objective no change Eric Cortez MD May 10, 2019 11:50
--- NOTE | 2019-05-10 12:02 | NUR ---
NURSE NOTES: Repositioned position and provided oral care.
--- NOTE | 2019-05-10 12:14 | Infectious Diseases Prog Note ---
Assessment/Plan Assessment/Plan A 1.Proteus pneumonia 2. respiratory failure 3. hypertension 4. CVA 5. dementia 6. sacral decubitus ulcer 7. rectal VRE colonization 8. Anemia 9. Proteus UTI 10. Acute renal failure 11. Sepsis with Klebsiella ( KPC) P 1 Discontinue Zosyn 2. start on Tygacil & Rocephin 3. C. difficile test: negative 4. will f/u cultures Subjective ROS Limited/Unobtainable: Yes Constitutional: Denies: fever Allergies: Coded Allergies: CODEINE (Verified Allergy, Unknown, HIVES, 09/15/09) Objective Vital Signs Last 24 Hour Vital Signs Date Time Temp Pulse Resp B/P (MAP) Pulse Ox O2 Delivery O2 Flow Rate FiO2 05/10/19 10:45 88 20 100 T-Piece 5.0 28 81 21 96 05/10/19 09:00 82 23 133/59 (83) 99 05/10/19 08:00 T-piece 5.0 T-piece 5.0 T-piece 5.0 T-piece 5.0 05/10/19 08:00 97.7 90 17 128/55 (79) 95 05/10/19 08:00 5.0 28 05/10/19 07:11 84 22 100 T-Piece 5.0 28 81 20 98 05/10/19 07:02 98 T-Piece 5.0 28 05/10/19 07:00 95 25 148/78 (101) 100 05/10/19 06:00 89 21 148/78 (101) 98 05/10/19 05:00 85 21 162/69 (100) 99 05/10/19 04:00 85 05/10/19 04:00 99.2 88 21 169/82 (111) 100 05/10/19 04:00 5.0 28 05/10/19 04:00 T-piece 5.0 T-piece 5.0 T-piece 5.0 T-piece 5.0 05/10/19 03:16 94 24 100 T-Piece 5.0 28 05/10/19 03:06 90 23 100 T-Piece 5.0 28 05/10/19 03:00 87 20 160/75 (103) 99 05/10/19 02:00 90 22 144/63 (90) 98 05/10/19 01:10 99 T-Piece 5.0 28 05/10/19 01:00 89 23 125/60 (81) 97 05/10/19 00:00 T-piece 5.0 T-piece 5.0 T-piece 5.0 T-piece 5.0 05/10/19 00:00 98.8 92 23 119/53 (75) 95 05/10/19 00:00 5.0 28 05/10/19 00:00 94 05/09/19 23:16 90 23 99 T-Piece 5.0 28 05/09/19 23:06 92 24 99 T-Piece 5.0 28 05/09/19 23:00 93 25 142/61 (88) 100 05/09/19 22:00 89 23 143/59 (87) 97 05/09/19 21:00 90 22 158/65 (96) 98 05/09/19 20:00 T-piece 5.0 T-piece 5.0 T-piece 5.0 T-piece 5.0 05/09/19 20:00 5.0 28 05/09/19 20:00 88 05/09/19 20:00 98.3 87 20 145/58 (87) 99 05/09/19 19:30 91 22 100 T-Piece 5.0 28 05/09/19 19:20 89 25 99 T-Piece 5.0 28 05/09/19 19:20 99 T-Piece 5.0 28 05/09/19 19:00 81 23 142/67 (92) 98 05/09/19 18:00 91 21 155/64 (94) 99 05/09/19 17:00 91 23 132/68 (89) 98 05/09/19 16:00 T-piece 5.0 T-piece 5.0 T-piece 5.0 T-piece 5.0 05/09/19 16:00 93 05/09/19 16:00 5.0 28 05/09/19 16:00 98.1 87 23 121/52 (75) 96 05/09/19 15:00 97 24 150/70 (96) 97 05/09/19 14:43 82 24 99 T-Piece 5.0 28 87 24 97 05/09/19 14:00 87 24 136/60 (85) 96 05/09/19 13:25 99 T-Piece 5.0 28 05/09/19 13:00 93 23 142/65 (90) 97 Height (Feet): 5 Height (Inches): 3.00 Weight (Pounds): 129 HEENT: mucous membranes moist, status post trach Respiratory/Chest: lungs clear, other - on T bar Cardiovascular: normal rate Abdomen: soft, non tender, other - GT feeding Extremities: no edema Neurologic/Psychiatric: aphasia Microbiology Date/Time Source Procedure Growth Status 05/08/19 10:30 Blood Blood Culture - Preliminary Resulted 05/07/19 21:30 Sputum Gram Stain - Final Resulted 05/07/19 21:30 Sputum Culture - Preliminary Proteus Mirabilis Resulted 05/07/19 18:30 Stool Clostridium difficile Toxin Assay - Final Complete 05/08/19 03:10 Urine,Clean Catch Urine Culture - Preliminary NO GROWTH AFTER 24 HOURS Resulted Laboratory Tests Test 05/10/19 04:45 White Blood Count 10.1 K/UL (4.8-10.8) Red Blood Count 3.44 M/UL (4.20-5.40) L Hemoglobin 9.9 G/DL (12.0-16.0) #L Hematocrit 30.1 % (37.0-47.0) #L Mean Corpuscular Volume 88 FL (80-99) Mean Corpuscular Hemoglobin 28.8 PG (27.0-31.0) Mean Corpuscular Hemoglobin Concent 32.9 G/DL (32.0-36.0) Red Cell Distribution Width 15.8 % (11.6-14.8) H Platelet Count 149 K/UL (150-450) L Mean Platelet Volume 5.4 FL (6.5-10.1) L Neutrophils (%) (Auto) 65.6 % (45.0-75.0) Lymphocytes (%) (Auto) 21.1 % (20.0-45.0) Monocytes (%) (Auto) 10.3 % (1.0-10.0) H Eosinophils (%) (Auto) 2.4 % (0.0-3.0) Basophils (%) (Auto) 0.7 % (0.0-2.0) Sodium Level 149 MMOL/L (136-145) H Potassium Level 4.3 MMOL/L (3.5-5.1) Chloride Level 111 MMOL/L (98-107) H Carbon Dioxide Level 33 MMOL/L (21-32) H Anion Gap 5 mmol/L (5-15) Blood Urea Nitrogen 27 mg/dL (7-18) H Creatinine 0.8 MG/DL (0.55-1.30) Estimat Glomerular Filtration Rate mL/min (>60) Glucose Level 122 MG/DL (74-106) H Calcium Level 9.2 MG/DL (8.5-10.1) Total Bilirubin 0.4 MG/DL (0.2-1.0) Aspartate Amino Transf (AST/SGOT) 121 U/L (15-37) H Alanine Aminotransferase (ALT/SGPT) 277 U/L (12-78) H Alkaline Phosphatase 224 U/L (46-116) H Total Protein 7.8 G/DL (6.4-8.2) Albumin 2.3 G/DL (3.4-5.0) L Globulin 5.5 g/dL Albumin/Globulin Ratio 0.4 (1.0-2.7) L Current Medications Medications (Trade) Dose Ordered Sig/Maicol Route PRN Reason Start Time Stop Time Status Last Admin Dose Admin Acetaminophen (Tylenol) 650 mg Q4H PRN RECTAL T>100.5 / Mild Pain 05/07/19 09:45 06/06/19 09:44 05/07/19 10:13 Albuterol/ Ipratropium (Albuterol/ Ipratropium) 3 ml Q4HRT HHN 05/05/19 19:00 05/10/19 18:59 05/10/19 10:35 Chlorhexidine Gluconate (Cesilia-Hex 2%) 1 applic DAILY@2000 TOPIC 04/12/19 20:00 05/12/19 19:59 05/09/19 20:16 Dextrose/Sodium Chloride 1,000 ml @ 100 mls/hr Q10H IV 05/07/19 20:15 06/06/19 20:14 05/10/19 06:00 Heparin Sodium (Porcine) (Heparin 5000 units/ml) 5,000 units EVERY 12 HOURS SUBQ 05/01/19 21:00 05/31/19 20:59 05/09/19 20:17 Levetiracetam (Keppra) 500 mg Q12HR GT 05/01/19 21:00 05/28/19 08:59 05/10/19 09:02 Norepinephrine Bitartrate 4 mg/ Dextrose 250 ml @ 0 mls/hr Q24H IV 05/07/19 12:30 06/06/19 12:29 05/07/19 12:24 Piperacillin Sod/ Tazobactam Sod 3.375 gm/Sodium Chloride 110 ml @ 27.5 mls/hr EVERY 8 HOURS IVPB 05/08/19 14:00 05/13/19 13:59 05/10/19 06:00 Sorbitol (Sorbitol) 30 ml BIDPRN PRN ORAL Constipation 04/13/19 11:15 05/13/19 11:14 Sorbitol (sorbitoL) 30 ml DAILY GT 04/14/19 09:00 05/14/19 08:59 05/10/19 09:02 Chauncey Liriano MD May 10, 2019 12:14
--- NOTE | 2019-05-10 12:15 | NUR ---
NURSE NOTES: Seen by Dr. Jm Liriano and assessed patient.
[2019-05-10] MEDS ORDERED: Tigecycline 100 MG in NS 110 ML IVPB ONE (14:00)
--- NOTE | 2019-05-10 14:05 | NUR ---
NURSE NOTES: Repositioned patient and oral care provided.
--- NOTE | 2019-05-10 14:13 | General Progress Note ---
Assessment/Plan Problem List: (1) Seizure ICD Codes: R56.9 - Unspecified convulsions SNOMED: 67218817 (2) Anemia ICD Codes: D64.9 - Anemia, unspecified SNOMED: 559787251 Qualifiers: Qualified Codes: D64.9 - Anemia, unspecified (3) Sepsis ICD Codes: A41.9 - Sepsis, unspecified organism SNOMED: 09345627, 308827713 Qualifiers: Qualified Codes: A41.9 - Sepsis, unspecified organism (4) Respiratory failure with hypoxia ICD Codes: J96.91 - Respiratory failure, unspecified with hypoxia SNOMED: 05537603113068123 Qualifiers: Qualified Codes: J96.21 - Acute and chronic respiratory failure with hypoxia (5) HCAP (healthcare-associated pneumonia) ICD Codes: J18.9 - Pneumonia, unspecified organism SNOMED: 812374588, 866556500 (6) Sacral decubitus ulcer ICD Codes: L89.159 - Pressure ulcer of sacral region, unspecified stage SNOMED: 052013297 (7) HTN (hypertension) ICD Codes: I10 - Essential (primary) hypertension SNOMED: 88612663 (8) Chronic vegetative state ICD Codes: R40.3 - Persistent vegetative state SNOMED: 72983633 (9) Chronic respiratory failure ICD Codes: J96.10 - Chronic respiratory failure, unspecified whether with hypoxia or hypercapnia SNOMED: 57363979 (10) Limited mobility ICD Codes: Z74.09 - Other reduced mobility SNOMED: 2989675 Status: stable, progressing Assessment/Plan: follow up cultures iv abx per id ivf monitor for bleeding vent as needed resp rx suctioning j tube feeds g port to gravity skin care sz rx bowel regime Subjective ROS Limited/Unobtainable: Yes Constitutional: Reports: weakness HEENT: Reports: no symptoms Cardiovascular: Reports: no symptoms Respiratory: Reports: shortness of breath, sputum Gastrointestinal/Abdominal: Reports: difficulty swallowing Genitourinary: Reports: no symptoms Neurologic/Psychiatric: Reports: pre-existing deficit, seizure Endocrine: Reports: no symptoms Hematologic/Lymphatic: Reports: no symptoms Allergies: Coded Allergies: CODEINE (Verified Allergy, Unknown, HIVES, 09/15/09) All Systems: reviewed and negative except above Subjective no events. stable on the vent. no fever, s/p 1 unit, no bleeding. on iv abx. Objective Last 24 Hour Vital Signs Date Time Temp Pulse Resp B/P (MAP) Pulse Ox O2 Delivery O2 Flow Rate FiO2 05/10/19 13:00 98 19 170/79 (109) 98 05/10/19 12:30 96 T-Piece 5.0 28 05/10/19 12:00 98.2 93 23 161/75 (103) 98 05/10/19 12:00 T-piece 5.0 T-piece 5.0 T-piece 5.0 T-piece 5.0 05/10/19 12:00 5.0 28 05/10/19 11:00 92 23 150/72 (98) 98 05/10/19 10:45 88 20 100 T-Piece 5.0 28 81 21 96 05/10/19 10:00 86 20 150/69 (96) 97 05/10/19 09:00 82 23 133/59 (83) 99 05/10/19 08:00 T-piece 5.0 T-piece 5.0 T-piece 5.0 T-piece 5.0 05/10/19 08:00 93 05/10/19 08:00 97.7 90 17 128/55 (79) 95 05/10/19 08:00 5.0 28 05/10/19 07:11 84 22 100 T-Piece 5.0 28 81 20 98 05/10/19 07:02 98 T-Piece 5.0 28 05/10/19 07:00 95 25 148/78 (101) 100 05/10/19 06:00 89 21 148/78 (101) 98 05/10/19 05:00 85 21 162/69 (100) 99 05/10/19 04:00 85 05/10/19 04:00 99.2 88 21 169/82 (111) 100 05/10/19 04:00 5.0 28 05/10/19 04:00 T-piece 5.0 T-piece 5.0 T-piece 5.0 T-piece 5.0 05/10/19 03:16 94 24 100 T-Piece 5.0 28 05/10/19 03:06 90 23 100 T-Piece 5.0 28 05/10/19 03:00 87 20 160/75 (103) 99 05/10/19 02:00 90 22 144/63 (90) 98 05/10/19 01:10 99 T-Piece 5.0 28 05/10/19 01:00 89 23 125/60 (81) 97 05/10/19 00:00 T-piece 5.0 T-piece 5.0 T-piece 5.0 T-piece 5.0 05/10/19 00:00 98.8 92 23 119/53 (75) 95 05/10/19 00:00 5.0 28 05/10/19 00:00 94 05/09/19 23:16 90 23 99 T-Piece 5.0 28 05/09/19 23:06 92 24 99 T-Piece 5.0 28 05/09/19 23:00 93 25 142/61 (88) 100 05/09/19 22:00 89 23 143/59 (87) 97 05/09/19 21:00 90 22 158/65 (96) 98 05/09/19 20:00 T-piece 5.0 T-piece 5.0 T-piece 5.0 T-piece 5.0 05/09/19 20:00 5.0 28 05/09/19 20:00 88 05/09/19 20:00 98.3 87 20 145/58 (87) 99 05/09/19 19:30 91 22 100 T-Piece 5.0 28 05/09/19 19:20 89 25 99 T-Piece 5.0 28 05/09/19 19:20 99 T-Piece 5.0 28 05/09/19 19:00 81 23 142/67 (92) 98 05/09/19 18:00 91 21 155/64 (94) 99 05/09/19 17:00 91 23 132/68 (89) 98 05/09/19 16:00 T-piece 5.0 T-piece 5.0 T-piece 5.0 T-piece 5.0 05/09/19 16:00 93 05/09/19 16:00 5.0 28 05/09/19 16:00 98.1 87 23 121/52 (75) 96 05/09/19 15:00 97 24 150/70 (96) 97 05/09/19 14:43 82 24 99 T-Piece 5.0 28 87 24 97 Intake and Output 05/09/19 05/10/19 19:00 07:00 Intake Total 1880.5 ml 2357.5 ml Output Total 1200 ml 700 ml Balance 680.5 ml 1657.5 ml Free Water 250 ml 400 ml IV Total 660.5 ml 1237.5 ml Tube Feeding 720 ml 720 ml Blood Product 250 ml Output Urine Total 500 ml 700 ml Other 700 ml # Bowel Movements 11 Laboratory Tests 05/10/19 04:45: White Blood Count 10.1, Red Blood Count 3.44L, Hemoglobin 9.9#L, Hematocrit 30.1 #L, Mean Corpuscular Volume 88, Mean Corpuscular Hemoglobin 28.8, Mean Corpuscular Hemoglobin Concent 32.9, Red Cell Distribution Width 15.8H, Platelet Count 149L, Mean Platelet Volume 5.4L, Neutrophils (%) (Auto) 65.6, Lymphocytes (%) (Auto) 21.1, Monocytes (%) (Auto) 10.3H, Eosinophils (%) (Auto) 2.4, Basophils (%) (Auto) 0.7, Sodium Level 149H, Potassium Level 4.3, Chloride Level 111H, Carbon Dioxide Level 33H, Anion Gap 5, Blood Urea Nitrogen 27H, Creatinine 0.8, Estimat Glomerular Filtration Rate , Glucose Level 122H, Calcium Level 9.2, Total Bilirubin 0.4, Aspartate Amino Transf (AST/SGOT) 121H, Alanine Aminotransferase (ALT/SGPT) 277H, Alkaline Phosphatase 224H, Total Protein 7.8, Albumin 2.3L, Globulin 5.5, Albumin/Globulin Ratio 0.4L Height (Feet): 5 Height (Inches): 3.00 Weight (Pounds): 129 Objective General Appearance: WD/WN, confused. on trach collar Neck: supple Cardiovascular: normal rate, regular rhythm Respiratory/Chest: chest wall non-tender, rhonchi - bilaterally(minimal) Abdomen: normal bowel sounds, non tender, soft, no organomegaly Edema: no edema noted Arm (L), no edema noted Arm (R), no edema noted Leg (L), no edema noted Leg (R), no edema noted Pedal (L), no edema noted Pedal (R), no edema noted Generalized Neurologic: disoriented, unresponsive, aphasia Irvin Beltrán MD May 10, 2019 14:13
[2019-05-10] MEDS ORDERED: cefTRIAXone 1 GM in D5W 55 ML IVPB SCH (15:00)
--- NOTE | 2019-05-10 16:20 | NUR ---
NURSE NOTES: Bed bath given. Small soft brown color BM noted. Kept dry, clean, comfortable and HOB>30.
--- NOTE | 2019-05-10 18:07 | NUR ---
NURSE NOTES: Repositioned patient and oral care given.
--- NOTE | 2019-05-10 19:02 | NUR ---
HAND-OFF: Report given to JEANNINE Milan. Endorsed plan of care.
--- NOTE | 2019-05-10 19:33 | NUR ---
NURSE NOTES: SBAR from Joseph Joe RN. Patient is semi-fowlers 30 degree position. Awake at this time, non-verbal, does not track with eyes on command, responds to painful stimulus. T-piece Shiley 6 XLT, Connected to cool aerosol 28%/5L. HR is 83 NSR, 152/69, Spo2 98%, breathing pattern normal, cool to touch. No signs of distress at this time. J-GT in place. J tube running Vital at 60ml/hr, G-tube draining to gravity. Purewick to suction, Skin alterations noted, p200 mattress noted, PIV right hand 20G, Patent, intact and asymptomatic. Infusing D5NS at 100ml/hr. Call light within reach, safety measures in place, will continue to monitor.
[2019-05-10] MEDS: Dyna-Hex 2% Top Sol 2oz TOPIC SCH (19:59)
--- NOTE | 2019-05-10 20:00 | NUR ---
NURSE NOTES: Temp 98.8F Deep and oral suctioned Other VS are stable Repositioned
--- NOTE | 2019-05-10 20:05 | NUR ---
NURSE NOTES: Cristian pack given Prostat GJ tube flushed
--- NOTE | 2019-05-10 20:53 | Pulmonolgy Critical Care Note ---
Critical Care - Asmt/Plan Assessment/Plan: Pulmonary CCM Progress Note Assessment/Plan Impression: history of Sepsis history of Pneumonia Trach, G tube, Hypertension, Cardiac disease, Dementia, Previous CVA, Seizure disorder, Respiratory failure with hypoxia Anemia, Sacral ulcer renal cyst chronic pulmonary congestion Plan continue with respiratory care monitor protein levels and adjust monitor imaging per review likely chronic monitor labs and reflux aspiration abdominal xray reviewed elevate head and monitor secretions DNR. No CPR. ICU care reviewed meds noted and updated; neb therapy off load as able nutrition/fees/ dietary as is; monitor residuals skin care difficulty with placement all changes noted and discussed chronic management as able medications/laboratory data/nursing notes/ICU care reviewed in detail note reviewed and edited care discussed with RN and RT Objective Vital Signs Noted Objective WDWN NAD contracted off vent reduced breath sounds bilaterally with some rhonchi; no wheeze [id number] without MRG NABS nontender no HSM no CC minimal nonfocal nonverbal trach and gt reviewed and edited Laboratory Tests Noted Critical Care - Objective Last 24 Hour Vital Signs Date Time Temp Pulse Resp B/P (MAP) Pulse Ox O2 Delivery O2 Flow Rate FiO2 05/10/19 20:34 92 19 100 T-Piece 5.0 28 93 21 99 05/10/19 20:34 99 T-Piece 5.0 28 05/10/19 19:00 84 19 152/69 (96) 99 05/10/19 18:00 92 23 155/70 (98) 99 05/10/19 17:00 93 22 161/76 (104) 98 05/10/19 16:00 T-piece 5.0 T-piece 5.0 T-piece 5.0 T-piece 5.0 05/10/19 16:00 94 05/10/19 16:00 98.1 95 24 169/85 (113) 100 05/10/19 16:00 5.0 28 05/10/19 15:00 91 25 163/76 (105) 100 05/10/19 14:59 91 23 100 T-Piece 5.0 28 92 24 100 05/10/19 14:00 86 22 138/64 (88) 96 05/10/19 13:00 98 19 170/79 (109) 98 05/10/19 12:30 96 T-Piece 5.0 28 05/10/19 12:30 170/79 05/10/19 12:00 98.2 93 23 161/75 (103) 98 05/10/19 12:00 T-piece 5.0 T-piece 5.0 T-piece 5.0 T-piece 5.0 05/10/19 12:00 5.0 28 05/10/19 12:00 94 05/10/19 11:00 92 23 150/72 (98) 98 05/10/19 10:45 88 20 100 T-Piece 5.0 28 81 21 96 05/10/19 10:00 86 20 150/69 (96) 97 05/10/19 09:00 82 23 133/59 (83) 99 05/10/19 08:00 T-piece 5.0 T-piece 5.0 T-piece 5.0 T-piece 5.0 05/10/19 08:00 93 05/10/19 08:00 97.7 90 17 128/55 (79) 95 05/10/19 08:00 5.0 28 05/10/19 07:11 84 22 100 T-Piece 5.0 28 81 20 98 05/10/19 07:02 98 T-Piece 5.0 28 05/10/19 07:00 95 25 148/78 (101) 100 05/10/19 06:00 89 21 148/78 (101) 98 05/10/19 05:00 85 21 162/69 (100) 99 05/10/19 04:00 85 05/10/19 04:00 99.2 88 21 169/82 (111) 100 05/10/19 04:00 5.0 28 05/10/19 04:00 T-piece 5.0 T-piece 5.0 T-piece 5.0 T-piece 5.0 05/10/19 03:16 94 24 100 T-Piece 5.0 28 05/10/19 03:06 90 23 100 T-Piece 5.0 28 05/10/19 03:00 87 20 160/75 (103) 99 05/10/19 02:00 90 22 144/63 (90) 98 05/10/19 01:10 99 T-Piece 5.0 28 05/10/19 01:00 89 23 125/60 (81) 97 05/10/19 00:00 T-piece 5.0 T-piece 5.0 T-piece 5.0 T-piece 5.0 05/10/19 00:00 98.8 92 23 119/53 (75) 95 05/10/19 00:00 5.0 28 05/10/19 00:00 94 05/09/19 23:16 90 23 99 T-Piece 5.0 28 05/09/19 23:06 92 24 99 T-Piece 5.0 28 05/09/19 23:00 93 25 142/61 (88) 100 05/09/19 22:00 89 23 143/59 (87) 97 05/09/19 21:00 90 22 158/65 (96) 98 Micro: Microbiology Date/Time Source Procedure Growth Status 05/08/19 10:30 Blood Blood Culture - Preliminary Resulted 05/07/19 21:30 Sputum Gram Stain - Final Resulted 05/07/19 21:30 Sputum Culture - Preliminary Proteus Mirabilis Resulted 05/08/19 03:10 Urine,Clean Catch Urine Culture - Preliminary NO GROWTH AFTER 24 HOURS Resulted Accucheck: 110 Critical Care - Subjective ROS Limited/Unobtainable: No FI02: 28 Vent Support Mode: CPAP Vent Tidal Volume: 450 Sputum Amount: Moderate PEEP: 5.0 PIP: 19 Tube Feeding Amount: 60 I&O: Intake and Output 05/09/19 05/10/19 19:00 07:00 Intake Total 1880.5 ml 2357.5 ml Output Total 1200 ml 700 ml Balance 680.5 ml 1657.5 ml Free Water 250 ml 400 ml IV Total 660.5 ml 1237.5 ml Tube Feeding 720 ml 720 ml Blood Product 250 ml Output Urine Total 500 ml 700 ml Other 700 ml # Bowel Movements 11 ET-Tube: 6.0 Bg Moffett MD May 10, 2019 20:53
[2019-05-10] MEDS: Tigecycline 50 MG in NS 110 ML IVPB SCH (21:08)
--- NOTE | 2019-05-10 22:00 | NUR ---
NURSE NOTES: Repositioned Oral care provided NAD at this time. Patient sleeping IV line remains patent, intact and asymptomatic.
[2019-05-10] MEDS ORDERED: Albuterol ud Inhalation HHN SCH (23:00)
[2019-05-11] VITALS (24 sets, daily range): BP systolic 104–169; BP diastolic 62–93
--- NOTE | 2019-05-11 | NUR ---
NURSE NOTES: 1 X Diarrhea BM Vitals stable NAD at this time Suctioned and repositioned Fluids ongoing
[2019-05-11] MEDS: Albuterol/Ipratropium 3ml neb HHN SCH ×7 (00:14→23:27)
--- NOTE | 2019-05-11 02:00 | NUR ---
NURSE NOTES: Repositioned Suctioned and oral care given VSS NAD Afebrile IV remains patent and intact.
--- NOTE | 2019-05-11 04:00 | NUR ---
NURSE NOTES: Liquid diarrhea noted, greenish/brown Rectal tube inserted Patient cleaned Oral care and suctioned remains afebrile. 98.7F (ax) IV Line remains patent, intact and asymptomatic.
[2019-05-11] MEDS: D5NS 1,000 ML IV SCH ×3 (04:21→23:09)
--- NOTE | 2019-05-11 06:09 | NUR ---
NURSE NOTES: Repositioned Dr. Beltrán at bedside, gave him update, order for hydralazine 10mg IVP PRN for BP. Oral care and suctioned NAD
[2019-05-11 06:11] LABS: BASOPHILS % (AUTO) 0.7 % (0.0-2.0); EOSINOPHILS % (AUTO) 2.4 % (0.0-3.0); HEMATOCRIT 28.9 % (37.0-47.0); HEMOGLOBIN 9.5 G/DL (12.0-16.0); LYMPHOCYTES % (AUTO) 18.9 % (20.0-45.0); MEAN CORPUSCULAR VOLUME 88 FL (80-99); MONOCYTES % (AUTO) 5.6 % (1.0-10.0); NEUTROPHILS % (AUTO) 72.4 % (45.0-75.0); PLATELET COUNT 173 K/UL (150-450); RED BLOOD COUNT 3.29 M/UL (4.20-5.40); RED CELL DISTRIBUTION WIDTH 15.4 % (11.6-14.8); WHITE BLOOD COUNT 13.5 K/UL (4.8-10.8)
[2019-05-11 06:48] LABS: ALANINE AMINOTRANSFERASE 267 U/L (12-78); ALBUMIN 2.2 G/DL (3.4-5.0); ALBUMIN/GLOBULIN RATIO 0.4 (1.0-2.7); ALKALINE PHOSPHATASE 232 U/L (46-116); ANION GAP 8 mmol/L (5-15); ASPARTATE AMINO TRANSFERASE 92 U/L (15-37); BILIRUBIN,TOTAL 0.3 MG/DL (0.2-1.0); BLOOD UREA NITROGEN 52 mg/dL (7-18); CALCIUM 9.2 MG/DL (8.5-10.1); CARBON DIOXIDE 27 MMOL/L (21-32); CHLORIDE 110 MMOL/L (98-107); CREATININE 0.7 MG/DL (0.55-1.30); POTASSIUM 4.5 MMOL/L (3.5-5.1); SODIUM 145 MMOL/L (136-145)
--- NOTE | 2019-05-11 07:25 | NUR ---
HAND-OFF: Report given to Valeria PAEZ.
--- NOTE | 2019-05-11 07:30 | NUR ---
NURSE NOTES: Report received from Bjorn Armstrong RN.Pt asleep noted no resp distress,on T-Piece 28% Fio2,no signs of pain or discomfort,SR on the monitor,with JT feeding Vital AF 1.2 at 60 ml/hr and GT to gravity pt incontinent of urine ,Pure wick draining yellow urine,with Rectal tube with liquid brown diarrhea stools,skin warm and dry IV site to RH intact with IVF D5NS at 100 ml/hr ,SR up x2 HOB elevated,bed lock in lowest position will continue with plans of care.
--- NOTE | 2019-05-11 08:48 | Pulmonology Progress Note ---
Assessment/Plan Assessment/Plan Impression: history of Sepsis history of Pneumonia Trach, G tube, Hypertension, Cardiac disease, Dementia, Previous CVA, Seizure disorder, Respiratory failure with hypoxia Anemia, Sacral ulcer renal cyst chronic pulmonary congestion Plan continue with respiratory care monitor for change recent cultures reviewed and ID noted monitor imaging PRN monitor labs maintain reflux aspiration elevate head and monitor secretions DNR. No CPR. ICU care reviewed meds noted and updated; neb therapy off load as able nutrition/fees/ dietary as is; monitor residuals skin care difficulty with placement all changes noted and discussed chronic management as able medications/laboratory data/nursing notes/ICU care reviewed in detail note reviewed and edited care discussed with RN and RT Subjective ROS Limited/Unobtainable: Yes Allergies: Coded Allergies: CODEINE (Verified Allergy, Unknown, HIVES, 09/15/09) Subjective overnight events noted; still off vent multiple cultures noted repeat cxr noted ICU care issues discussed bed bound and obtunded weekend events reviewed Objective Last 24 Hour Vital Signs Date Time Temp Pulse Resp B/P (MAP) Pulse Ox O2 Delivery O2 Flow Rate FiO2 05/11/19 08:00 98.0 91 20 169/83 (111) 100 05/11/19 08:00 T-piece 5.0 T-piece 5.0 T-piece 5.0 T-piece 5.0 05/11/19 08:00 5.0 28 05/11/19 07:34 90 24 100 T-Piece 5.0 28 92 24 100 05/11/19 07:33 100 T-Piece 5.0 28 05/11/19 07:00 85 20 124/63 (83) 100 05/11/19 06:00 88 21 156/72 (100) 100 05/11/19 05:00 93 21 131/85 (100) 100 05/11/19 04:00 5.0 28 05/11/19 04:00 98.7 101 20 168/92 (117) 100 05/11/19 04:00 T-piece 5.0 T-piece 5.0 T-piece 5.0 T-piece 5.0 05/11/19 04:00 103 05/11/19 03:19 94 23 100 T-Piece 5.0 28 93 20 100 05/11/19 03:00 88 20 162/77 (105) 100 05/11/19 02:00 89 20 168/81 (110) 100 05/11/19 01:31 100 T-Piece 5.0 28 05/11/19 01:00 92 21 163/78 (106) 98 05/11/19 00:15 96 23 100 T-Piece 5.0 28 95 24 100 05/11/19 00:00 5.0 28 05/11/19 00:00 91 05/11/19 00:00 T-piece 5.0 T-piece 5.0 T-piece 5.0 T-piece 5.0 05/11/19 00:00 98.5 93 22 163/80 (107) 99 05/10/19 23:00 99 23 171/86 (114) 100 05/10/19 22:00 97 22 167/76 (106) 98 05/10/19 21:00 96 23 158/70 (99) 99 05/10/19 20:34 92 19 100 T-Piece 5.0 28 93 21 99 05/10/19 20:34 99 T-Piece 5.0 28 05/10/19 20:00 98.8 90 24 169/76 (107) 100 05/10/19 20:00 81 05/10/19 20:00 5.0 28 05/10/19 20:00 T-piece 5.0 T-piece 5.0 T-piece 5.0 T-piece 5.0 05/10/19 19:00 84 19 152/69 (96) 99 05/10/19 18:00 92 23 155/70 (98) 99 05/10/19 17:00 93 22 161/76 (104) 98 05/10/19 16:00 T-piece 5.0 T-piece 5.0 T-piece 5.0 T-piece 5.0 05/10/19 16:00 94 05/10/19 16:00 98.1 95 24 169/85 (113) 100 05/10/19 16:00 5.0 28 05/10/19 15:00 91 25 163/76 (105) 100 05/10/19 14:59 91 23 100 T-Piece 5.0 28 92 24 100 05/10/19 14:00 86 22 138/64 (88) 96 05/10/19 13:00 98 19 170/79 (109) 98 05/10/19 12:30 96 T-Piece 5.0 28 05/10/19 12:30 170/79 05/10/19 12:00 98.2 93 23 161/75 (103) 98 05/10/19 12:00 T-piece 5.0 T-piece 5.0 T-piece 5.0 T-piece 5.0 05/10/19 12:00 5.0 28 05/10/19 12:00 94 05/10/19 11:00 92 23 150/72 (98) 98 05/10/19 10:45 88 20 100 T-Piece 5.0 28 81 21 96 05/10/19 10:00 86 20 150/69 (96) 97 05/10/19 09:00 82 23 133/59 (83) 99 Intake and Output 05/10/19 05/11/19 19:00 07:00 Intake Total 2783.5 ml 2642.3 ml Output Total 500 ml 1300 ml Balance 2283.5 ml 1342.3 ml Free Water 300 ml 300 ml IV Total 1313.5 ml 1112.3 ml Tube Feeding 720 ml 780 ml Other 450 ml 450 ml Output Urine Total 500 ml 1000 ml Stool Total 300 ml # Bowel Movements 1 2 Objective WDWN NAD contracted off vent reduced breath sounds bilaterally without rhonchi or wheeze [id number] without MRG NABS nontender no HSM no CC trace edema same nonfocal nonverbal trach and gt reviewed and edited Microbiology Date/Time Source Procedure Growth Status 05/08/19 10:30 Blood Blood Culture - Preliminary Resulted Laboratory Tests 05/11/19 05:55: White Blood Count 13.5H, Red Blood Count 3.29L, Hemoglobin 9.5L, Hematocrit 28.9L, Mean Corpuscular Volume 88, Mean Corpuscular Hemoglobin 28.9, Mean Corpuscular Hemoglobin Concent 33.0, Red Cell Distribution Width 15.4H, Platelet Count 173, Mean Platelet Volume 5.8L, Neutrophils (%) (Auto) 72.4, Lymphocytes (%) (Auto) 18.9L, Monocytes (%) (Auto) 5.6, Eosinophils (%) (Auto) 2.4, Basophils (%) (Auto) 0.7, Sodium Level 145, Potassium Level 4.5, Chloride Level 110H, Carbon Dioxide Level 27, Anion Gap 8, Blood Urea Nitrogen 52H, Creatinine 0.7, Estimat Glomerular Filtration Rate , Glucose Level 130H, Calcium Level 9.2, Total Bilirubin 0.3, Aspartate Amino Transf (AST/SGOT) 92H, Alanine Aminotransferase (ALT/SGPT) 267H, Alkaline Phosphatase 232H, Total Protein 7.7, Albumin 2.2L, Globulin 5.5, Albumin/Globulin Ratio 0.4L Current Medications Medications (Trade) Dose Ordered Sig/Maicol Route PRN Reason Start Time Stop Time Status Last Admin Dose Admin Acetaminophen (Tylenol) 650 mg Q4H PRN RECTAL T>100.5 / Mild Pain 05/07/19 09:45 06/06/19 09:44 05/07/19 10:13 Albuterol/ Ipratropium (Albuterol/ Ipratropium) 3 ml Q4HRT HHN 05/10/19 19:00 05/15/19 18:59 05/11/19 07:34 Atropine Sulfate (Atropine Opth Adriana) 1 drop Q6HR SL 05/11/19 00:00 06/10/19 08:59 05/11/19 05:39 Ceftriaxone Sodium 1 gm/ Dextrose 55 ml @ 110 mls/hr Q24H IVPB 05/10/19 15:00 05/17/19 14:59 05/10/19 15:20 Chlorhexidine Gluconate (Cesilia-Hex 2%) 1 applic DAILY@2000 TOPIC 04/12/19 20:00 05/12/19 19:59 05/10/19 19:59 Dextrose/Sodium Chloride 1,000 ml @ 100 mls/hr Q10H IV 05/07/19 20:15 06/06/19 20:14 05/11/19 04:21 Heparin Sodium (Porcine) (Heparin 5000 units/ml) 5,000 units EVERY 12 HOURS SUBQ 05/01/19 21:00 05/31/19 20:59 05/10/19 20:00 Hydralazine HCl (Apresoline) 10 mg Q4H PRN IV For High Blood Pressure 05/11/19 05:45 06/10/19 05:44 Levetiracetam (Keppra) 500 mg Q12HR GT 05/01/19 21:00 05/28/19 08:59 05/10/19 19:59 Norepinephrine Bitartrate 4 mg/ Dextrose 250 ml @ 0 mls/hr Q24H IV 05/07/19 12:30 06/06/19 12:29 05/07/19 12:24 Sorbitol (Sorbitol) 30 ml BIDPRN PRN ORAL Constipation 04/13/19 11:15 05/13/19 11:14 Sorbitol (sorbitoL) 30 ml DAILY GT 04/14/19 09:00 05/14/19 08:59 05/10/19 09:02 Tigecycline 50 mg/ Sodium Chloride 110 ml @ 220 mls/hr Q12H IVPB 05/10/19 22:00 05/17/19 21:59 05/10/19 21:08 Amaury Chan MD May 11, 2019 08:48
--- NOTE | 2019-05-11 08:53 | Nephrology Progress Note ---
Assessment/Plan Problem List: (1) Acute renal failure (ARF) Assessment: Cr stable (2) Chronic respiratory failure (3) Anemia (4) Sepsis Assessment Acute renal failure Respiratory failure - Trach Low Mag- Low k , Low Na Anemia UTI / Sepsis Proteinuria / HypoAlbuminemia high Trigs Sz decubs bed bound DNR Plan Transfused 05/09 now has JT bolus Albumin as needed K and Mag and Phos supplement as needed Hydrate as needed Urine studies avoid Nephrotoxics mag K Phos supplements as needed monitor renal parameters Objective Objective Last 24 Hour Vital Signs Date Time Temp Pulse Resp B/P (MAP) Pulse Ox O2 Delivery O2 Flow Rate FiO2 05/11/19 08:00 98.0 91 20 169/83 (111) 100 05/11/19 08:00 T-piece 5.0 T-piece 5.0 T-piece 5.0 T-piece 5.0 05/11/19 08:00 5.0 28 05/11/19 07:34 90 24 100 T-Piece 5.0 28 92 24 100 05/11/19 07:33 100 T-Piece 5.0 28 05/11/19 07:00 85 20 124/63 (83) 100 05/11/19 06:00 88 21 156/72 (100) 100 05/11/19 05:00 93 21 131/85 (100) 100 05/11/19 04:00 5.0 28 05/11/19 04:00 98.7 101 20 168/92 (117) 100 05/11/19 04:00 T-piece 5.0 T-piece 5.0 T-piece 5.0 T-piece 5.0 05/11/19 04:00 103 05/11/19 03:19 94 23 100 T-Piece 5.0 28 93 20 100 05/11/19 03:00 88 20 162/77 (105) 100 05/11/19 02:00 89 20 168/81 (110) 100 05/11/19 01:31 100 T-Piece 5.0 28 05/11/19 01:00 92 21 163/78 (106) 98 05/11/19 00:15 96 23 100 T-Piece 5.0 28 95 24 100 05/11/19 00:00 5.0 28 05/11/19 00:00 91 05/11/19 00:00 T-piece 5.0 T-piece 5.0 T-piece 5.0 T-piece 5.0 05/11/19 00:00 98.5 93 22 163/80 (107) 99 05/10/19 23:00 99 23 171/86 (114) 100 05/10/19 22:00 97 22 167/76 (106) 98 05/10/19 21:00 96 23 158/70 (99) 99 05/10/19 20:34 92 19 100 T-Piece 5.0 28 93 21 99 05/10/19 20:34 99 T-Piece 5.0 28 05/10/19 20:00 98.8 90 24 169/76 (107) 100 05/10/19 20:00 81 05/10/19 20:00 5.0 28 05/10/19 20:00 T-piece 5.0 T-piece 5.0 T-piece 5.0 T-piece 5.0 05/10/19 19:00 84 19 152/69 (96) 99 05/10/19 18:00 92 23 155/70 (98) 99 05/10/19 17:00 93 22 161/76 (104) 98 05/10/19 16:00 T-piece 5.0 T-piece 5.0 T-piece 5.0 T-piece 5.0 05/10/19 16:00 94 05/10/19 16:00 98.1 95 24 169/85 (113) 100 05/10/19 16:00 5.0 28 05/10/19 15:00 91 25 163/76 (105) 100 05/10/19 14:59 91 23 100 T-Piece 5.0 28 92 24 100 05/10/19 14:00 86 22 138/64 (88) 96 05/10/19 13:00 98 19 170/79 (109) 98 05/10/19 12:30 96 T-Piece 5.0 28 05/10/19 12:30 170/79 05/10/19 12:00 98.2 93 23 161/75 (103) 98 05/10/19 12:00 T-piece 5.0 T-piece 5.0 T-piece 5.0 T-piece 5.0 05/10/19 12:00 5.0 28 05/10/19 12:00 94 05/10/19 11:00 92 23 150/72 (98) 98 05/10/19 10:45 88 20 100 T-Piece 5.0 28 81 21 96 05/10/19 10:00 86 20 150/69 (96) 97 05/10/19 09:00 82 23 133/59 (83) 99 Intake and Output 05/10/19 05/11/19 19:00 07:00 Intake Total 2783.5 ml 2642.3 ml Output Total 500 ml 1300 ml Balance 2283.5 ml 1342.3 ml Free Water 300 ml 300 ml IV Total 1313.5 ml 1112.3 ml Tube Feeding 720 ml 780 ml Other 450 ml 450 ml Output Urine Total 500 ml 1000 ml Stool Total 300 ml # Bowel Movements 1 2 Laboratory Tests 05/11/19 05:55: White Blood Count 13.5H, Red Blood Count 3.29L, Hemoglobin 9.5L, Hematocrit 28.9L, Mean Corpuscular Volume 88, Mean Corpuscular Hemoglobin 28.9, Mean Corpuscular Hemoglobin Concent 33.0, Red Cell Distribution Width 15.4H, Platelet Count 173, Mean Platelet Volume 5.8L, Neutrophils (%) (Auto) 72.4, Lymphocytes (%) (Auto) 18.9L, Monocytes (%) (Auto) 5.6, Eosinophils (%) (Auto) 2.4, Basophils (%) (Auto) 0.7, Sodium Level 145, Potassium Level 4.5, Chloride Level 110H, Carbon Dioxide Level 27, Anion Gap 8, Blood Urea Nitrogen 52H, Creatinine 0.7, Estimat Glomerular Filtration Rate , Glucose Level 130H, Calcium Level 9.2, Total Bilirubin 0.3, Aspartate Amino Transf (AST/SGOT) 92H, Alanine Aminotransferase (ALT/SGPT) 267H, Alkaline Phosphatase 232H, Total Protein 7.7, Albumin 2.2L, Globulin 5.5, Albumin/Globulin Ratio 0.4L Height (Feet): 5 Height (Inches): 3.00 Weight (Pounds): 131 Objective no change Eric Cortez MD May 11, 2019 08:53
--- NOTE | 2019-05-11 09:00 | NUR ---
NURSE NOTES: Oral care done,tracheal and oral secretions suctioned freq and PRN to whitish frothy secretions in mod amount.Pt turned and repositioned.
[2019-05-11] MEDS: Sorbitol Solution UD 30ml GT SCH (09:07)
[2019-05-11] MEDS: levETIRAcetam 500mg/5ml Liquid GT SCH ×2 (09:07→21:13)
[2019-05-11] MEDS: Heparin 5000 units/ml inj SUBQ SCH ×2 (09:09→21:14)
[2019-05-11] MEDS: Tigecycline 50 MG in NS 110 ML IVPB SCH (09:24)
--- NOTE | 2019-05-11 11:25 | Infectious Diseases Prog Note ---
"Assessment/Plan Assessment/Plan antibiotics : ceftriaxone, tygacil A 1. proteus | pseudomonas pneumonia 2. klebsiella sepsis s/p catheter removal 3. respiratory failure 4. hypertension 5. CVA 6. dementia 7. rectal VRE colonization 8. leucocytosis 9. shock 10 gram positive UTI P 1. d/c ceftriaxone, tygacil 2. start linezolid, meropenem, polymyxin 3. will follow up cultures Subjective ROS Limited/Unobtainable: Yes Allergies: Coded Allergies: CODEINE (Verified Allergy, Unknown, HIVES, 09/15/09) Objective Vital Signs Last 24 Hour Vital Signs Date Time Temp Pulse Resp B/P (MAP) Pulse Ox O2 Delivery O2 Flow Rate FiO2 05/11/19 11:18 167/74 05/11/19 10:00 91 19 166/79 (108) 100 05/11/19 09:00 90 20 162/71 (101) 100 05/11/19 08:00 98.0 91 20 169/83 (111) 100 05/11/19 08:00 91 05/11/19 08:00 T-piece 5.0 T-piece 5.0 T-piece 5.0 T-piece 5.0 05/11/19 08:00 5.0 28 05/11/19 07:34 90 24 100 T-Piece 5.0 28 92 24 100 05/11/19 07:33 100 T-Piece 5.0 28 05/11/19 07:00 85 20 124/63 (83) 100 05/11/19 06:00 88 21 156/72 (100) 100 05/11/19 05:00 93 21 131/85 (100) 100 05/11/19 04:00 5.0 28 05/11/19 04:00 98.7 101 20 168/92 (117) 100 05/11/19 04:00 T-piece 5.0 T-piece 5.0 T-piece 5.0 T-piece 5.0 05/11/19 04:00 103 05/11/19 03:19 94 23 100 T-Piece 5.0 28 93 20 100 05/11/19 03:00 88 20 162/77 (105) 100 05/11/19 02:00 89 20 168/81 (110) 100 05/11/19 01:31 100 T-Piece 5.0 28 05/11/19 01:00 92 21 163/78 (106) 98 05/11/19 00:15 96 23 100 T-Piece 5.0 28 95 24 100 05/11/19 00:00 5.0 28 05/11/19 00:00 91 05/11/19 00:00 T-piece 5.0 T-piece 5.0 T-piece 5.0 T-piece 5.0 05/11/19 00:00 98.5 93 22 163/80 (107) 99 05/10/19 23:00 99 23 171/86 (114) 100 05/10/19 22:00 97 22 167/76 (106) 98 05/10/19 21:00 96 23 158/70 (99) 99 05/10/19 20:34 92 19 100 T-Piece 5.0 28 93 21 99 05/10/19 20:34 99 T-Piece 5.0 28 05/10/19 20:00 98.8 90 24 169/76 (107) 100 05/10/19 20:00 81 05/10/19 20:00 5.0 28 05/10/19 20:00 T-piece 5.0 T-piece 5.0 T-piece 5.0 T-piece 5.0 05/10/19 19:00 84 19 152/69 (96) 99 05/10/19 18:00 92 23 155/70 (98) 99 05/10/19 17:00 93 22 161/76 (104) 98 05/10/19 16:00 T-piece 5.0 T-piece 5.0 T-piece 5.0 T-piece 5.0 05/10/19 16:00 94 05/10/19 16:00 98.1 95 24 169/85 (113) 100 05/10/19 16:00 5.0 28 05/10/19 15:00 91 25 163/76 (105) 100 05/10/19 14:59 91 23 100 T-Piece 5.0 28 92 24 100 05/10/19 14:00 86 22 138/64 (88) 96 05/10/19 13:00 98 19 170/79 (109) 98 05/10/19 12:30 96 T-Piece 5.0 28 05/10/19 12:30 170/79 05/10/19 12:00 98.2 93 23 161/75 (103) 98 05/10/19 12:00 T-piece 5.0 T-piece 5.0 T-piece 5.0 T-piece 5.0 05/10/19 12:00 5.0 28 05/10/19 12:00 94 Height (Feet): 5 Height (Inches): 3.00 Weight (Pounds): 131 HEENT: status post trach Respiratory/Chest: crackles/rales, rhonchi - bilaterally Cardiovascular: normal rate, regular rhythm, no gallop/murmur Abdomen: soft, non tender, other - GT Extremities: no edema Laboratory Tests Test 05/11/19 05:55 White Blood Count 13.5 K/UL (4.8-10.8) H Red Blood Count 3.29 M/UL (4.20-5.40) L Hemoglobin 9.5 G/DL (12.0-16.0) L Hematocrit 28.9 % (37.0-47.0) L Mean Corpuscular Volume 88 FL (80-99) Mean Corpuscular Hemoglobin 28.9 PG (27.0-31.0) Mean Corpuscular Hemoglobin Concent 33.0 G/DL (32.0-36.0) Red Cell Distribution Width 15.4 % (11.6-14.8) H Platelet Count 173 K/UL (150-450) Mean Platelet Volume 5.8 FL (6.5-10.1) L Neutrophils (%) (Auto) 72.4 % (45.0-75.0) Lymphocytes (%) (Auto) 18.9 % (20.0-45.0) L Monocytes (%) (Auto) 5.6 % (1.0-10.0) Eosinophils (%) (Auto) 2.4 % (0.0-3.0) Basophils (%) (Auto) 0.7 % (0.0-2.0) Sodium Level 145 MMOL/L (136-145) Potassium Level 4.5 MMOL/L (3.5-5.1) Chloride Level 110 MMOL/L (98-107) H Carbon Dioxide Level 27 MMOL/L (21-32) Anion Gap 8 mmol/L (5-15) Blood Urea Nitrogen 52 mg/dL (7-18) H Creatinine 0.7 MG/DL (0.55-1.30) Estimat Glomerular Filtration Rate mL/min (>60) Glucose Level 130 MG/DL (74-106) H Calcium Level 9.2 MG/DL (8.5-10.1) Total Bilirubin 0.3 MG/DL (0.2-1.0) Aspartate Amino Transf (AST/SGOT) 92 U/L (15-37) H Alanine Aminotransferase (ALT/SGPT) 267 U/L (12-78) H Alkaline Phosphatase 232 U/L (46-116) H Total Protein 7.7 G/DL (6.4-8.2) Albumin 2.2 G/DL (3.4-5.0) L Globulin 5.5 g/dL Albumin/Globulin Ratio 0.4 (1.0-2.7) L Current Medications Medications (Trade) Dose Ordered Sig/Maicol Route PRN Reason Start Time Stop Time Status Last Admin Dose Admin Acetaminophen (Tylenol) 650 mg Q4H PRN RECTAL T>100.5 / Mild Pain 05/07/19 09:45 06/06/19 09:44 05/07/19 10:13 Albuterol/ Ipratropium (Albuterol/ Ipratropium) 3 ml Q4HRT HHN 05/10/19 19:00 05/15/19 18:59 05/11/19 07:34 Atropine Sulfate (Atropine Opth Adriana) 1 drop Q6HR SL 05/11/19 00:00 06/10/19 08:59 05/11/19 05:39 Ceftriaxone Sodium 1 gm/ Dextrose 55 ml @ 110 mls/hr Q24H IVPB 05/10/19 15:00 05/17/19 14:59 05/10/19 15:20 Chlorhexidine Gluconate (Cesilia-Hex 2%) 1 applic DAILY@2000 TOPIC 04/12/19 20:00 05/12/19 19:59 05/10/19 19:59 Dextrose/Sodium Chloride 1,000 ml @ 100 mls/hr Q10H IV 05/07/19 20:15 06/06/19 20:14 05/11/19 04:21 Heparin Sodium (Porcine) (Heparin 5000 units/ml) 5,000 units EVERY 12 HOURS SUBQ 05/01/19 21:00 05/31/19 20:59 05/11/19 09:09 Hydralazine HCl (Apresoline) 10 mg Q4H PRN IV For High Blood Pressure 05/11/19 05:45 06/10/19 05:44 05/11/19 11:18 Levetiracetam (Keppra) 500 mg Q12HR GT 05/01/19 21:00 05/28/19 08:59 05/11/19 09:07 Norepinephrine Bitartrate 4 mg/ Dextrose 250 ml @ 0 mls/hr Q24H IV 05/07/19 12:30 06/06/19 12:29 05/07/19 12:24 Sorbitol (Sorbitol) 30 ml BIDPRN PRN ORAL Constipation 04/13/19 11:15 05/13/19 11:14 Sorbitol (sorbitoL) 30 ml DAILY GT 04/14/19 09:00 05/14/19 08:59 05/11/19 09:07 Tigecycline 50 mg/ Sodium Chloride 110 ml @ 220 mls/hr Q12H IVPB 05/10/19 22:00 05/17/19 21:59 05/11/19 09:24 Geovany Yang MD May 11, 2019 11:25"
--- NOTE | 2019-05-11 11:30 | NUR ---
NURSE NOTES: Dr Yang at bedside,antibiotics ordered.
[2019-05-11] MEDS: Meropenem 1gm/NS 110ml IVPB SCH ×4 (12:16→22:56)
[2019-05-11] MEDS: Linezolid 600mg/300mL Premix IVPB SCH ×2 (12:17→22:56)
--- NOTE | 2019-05-11 13:26 | NUR ---
[employer]OTHER[employer] SI: LEUKOCYTOSIS T. 98.9 HR 104 RR 25 B/P 152/62 T-BAR FIO2 28% WBC 13.5 AST 92 ALT 267 ALK PHOS 232 IS: POLYMYXIN IV ZYVOX IV MEROPENEM IV IVF D5NS@ 100ML/HR HEPARIN SUBC ICU STATUS
[2019-05-11] MEDS: D5W IV SCH ×2 (14:01→23:10)
[2019-05-11] MEDS: POLYMYXIN B SULFATE IV SCH ×2 (14:01→23:10)
--- NOTE | 2019-05-11 16:57 | General Progress Note ---
Assessment/Plan Problem List: (1) Seizure ICD Codes: R56.9 - Unspecified convulsions SNOMED: 11202860 (2) Anemia ICD Codes: D64.9 - Anemia, unspecified SNOMED: 106292367 Qualifiers: Qualified Codes: D64.9 - Anemia, unspecified (3) Sepsis ICD Codes: A41.9 - Sepsis, unspecified organism SNOMED: 29055914, 942699167 Qualifiers: Qualified Codes: A41.9 - Sepsis, unspecified organism (4) Respiratory failure with hypoxia ICD Codes: J96.91 - Respiratory failure, unspecified with hypoxia SNOMED: 84063339850184519 Qualifiers: Qualified Codes: J96.21 - Acute and chronic respiratory failure with hypoxia (5) HCAP (healthcare-associated pneumonia) ICD Codes: J18.9 - Pneumonia, unspecified organism SNOMED: 096582878, 269627114 (6) Sacral decubitus ulcer ICD Codes: L89.159 - Pressure ulcer of sacral region, unspecified stage SNOMED: 189986417 (7) HTN (hypertension) ICD Codes: I10 - Essential (primary) hypertension SNOMED: 11004828 (8) Chronic vegetative state ICD Codes: R40.3 - Persistent vegetative state SNOMED: 10022548 (9) Chronic respiratory failure ICD Codes: J96.10 - Chronic respiratory failure, unspecified whether with hypoxia or hypercapnia SNOMED: 14210618 (10) Limited mobility ICD Codes: Z74.09 - Other reduced mobility SNOMED: 4230368 Status: stable, progressing Assessment/Plan: follow up cultures iv abx per id ivf monitor for bleeding vent as needed resp rx suctioning j tube feeds g port to gravity skin care sz rx bowel regime Subjective ROS Limited/Unobtainable: Yes Constitutional: Reports: malaise, weakness HEENT: Reports: no symptoms Cardiovascular: Reports: no symptoms Respiratory: Reports: cough, shortness of breath, sputum Gastrointestinal/Abdominal: Reports: difficulty swallowing Genitourinary: Reports: no symptoms Neurologic/Psychiatric: Reports: pre-existing deficit, seizure Endocrine: Reports: no symptoms Hematologic/Lymphatic: Reports: anemia Allergies: Coded Allergies: CODEINE (Verified Allergy, Unknown, HIVES, 09/15/09) All Systems: reviewed and negative except above Subjective no events. stable on the vent. no fever, no bleeding. on iv abx. Objective Last 24 Hour Vital Signs Date Time Temp Pulse Resp B/P (MAP) Pulse Ox O2 Delivery O2 Flow Rate FiO2 05/11/19 14:00 97 22 160/72 (101) 100 05/11/19 13:18 99 T-Piece 5.0 28 05/11/19 13:00 100 21 152/66 (94) 99 05/11/19 12:30 155/62 05/11/19 12:00 T-piece 5.0 T-piece 5.0 T-piece 5.0 T-piece 5.0 05/11/19 12:00 105 05/11/19 12:00 98.9 104 25 155/62 (93) 100 05/11/19 12:00 5.0 28 05/11/19 11:23 96 20 100 T-Piece 5.0 28 90 22 100 05/11/19 11:18 167/74 05/11/19 11:00 108 25 122/93 (103) 99 05/11/19 10:00 91 19 166/79 (108) 100 05/11/19 09:00 90 20 162/71 (101) 100 05/11/19 08:00 98.0 91 20 169/83 (111) 100 05/11/19 08:00 91 05/11/19 08:00 T-piece 5.0 T-piece 5.0 T-piece 5.0 T-piece 5.0 05/11/19 08:00 5.0 28 05/11/19 07:34 90 24 100 T-Piece 5.0 28 92 24 100 05/11/19 07:33 100 T-Piece 5.0 28 05/11/19 07:00 85 20 124/63 (83) 100 05/11/19 06:00 88 21 156/72 (100) 100 05/11/19 05:00 93 21 131/85 (100) 100 05/11/19 04:00 5.0 28 05/11/19 04:00 98.7 101 20 168/92 (117) 100 05/11/19 04:00 T-piece 5.0 T-piece 5.0 T-piece 5.0 T-piece 5.0 05/11/19 04:00 103 05/11/19 03:19 94 23 100 T-Piece 5.0 28 93 20 100 05/11/19 03:00 88 20 162/77 (105) 100 05/11/19 02:00 89 20 168/81 (110) 100 05/11/19 01:31 100 T-Piece 5.0 28 05/11/19 01:00 92 21 163/78 (106) 98 05/11/19 00:15 96 23 100 T-Piece 5.0 28 95 24 100 05/11/19 00:00 5.0 28 05/11/19 00:00 91 05/11/19 00:00 T-piece 5.0 T-piece 5.0 T-piece 5.0 T-piece 5.0 05/11/19 00:00 98.5 93 22 163/80 (107) 99 05/10/19 23:00 99 23 171/86 (114) 100 05/10/19 22:00 97 22 167/76 (106) 98 05/10/19 21:00 96 23 158/70 (99) 99 05/10/19 20:34 92 19 100 T-Piece 5.0 28 93 21 99 05/10/19 20:34 99 T-Piece 5.0 28 05/10/19 20:00 98.8 90 24 169/76 (107) 100 05/10/19 20:00 81 05/10/19 20:00 5.0 28 05/10/19 20:00 T-piece 5.0 T-piece 5.0 T-piece 5.0 T-piece 5.0 05/10/19 19:00 84 19 152/69 (96) 99 05/10/19 18:00 92 23 155/70 (98) 99 05/10/19 17:00 93 22 161/76 (104) 98 Intake and Output 05/10/19 05/11/19 19:00 07:00 Intake Total 2783.5 ml 2742.3 ml Output Total 500 ml 1300 ml Balance 2283.5 ml 1442.3 ml Free Water 300 ml 300 ml IV Total 1313.5 ml 1212.3 ml Tube Feeding 720 ml 780 ml Other 450 ml 450 ml Output Urine Total 500 ml 1000 ml Stool Total 300 ml # Bowel Movements 1 2 Laboratory Tests 05/11/19 05:55: White Blood Count 13.5H, Red Blood Count 3.29L, Hemoglobin 9.5L, Hematocrit 28.9L, Mean Corpuscular Volume 88, Mean Corpuscular Hemoglobin 28.9, Mean Corpuscular Hemoglobin Concent 33.0, Red Cell Distribution Width 15.4H, Platelet Count 173, Mean Platelet Volume 5.8L, Neutrophils (%) (Auto) 72.4, Lymphocytes (%) (Auto) 18.9L, Monocytes (%) (Auto) 5.6, Eosinophils (%) (Auto) 2.4, Basophils (%) (Auto) 0.7, Sodium Level 145, Potassium Level 4.5, Chloride Level 110H, Carbon Dioxide Level 27, Anion Gap 8, Blood Urea Nitrogen 52H, Creatinine 0.7, Estimat Glomerular Filtration Rate , Glucose Level 130H, Calcium Level 9.2, Total Bilirubin 0.3, Aspartate Amino Transf (AST/SGOT) 92H, Alanine Aminotransferase (ALT/SGPT) 267H, Alkaline Phosphatase 232H, Total Protein 7.7, Albumin 2.2L, Globulin 5.5, Albumin/Globulin Ratio 0.4L Height (Feet): 5 Height (Inches): 3.00 Weight (Pounds): 131 Objective General Appearance: WD/WN, confused. on trach collar Neck: supple Cardiovascular: normal rate, regular rhythm Respiratory/Chest: chest wall non-tender, rhonchi - bilaterally(minimal) Abdomen: normal bowel sounds, non tender, soft, no organomegaly Edema: no edema noted Arm (L), no edema noted Arm (R), no edema noted Leg (L), no edema noted Leg (R), no edema noted Pedal (L), no edema noted Pedal (R), no edema noted Generalized Neurologic: disoriented, unresponsive, aphasia Irvin Beltrán MD May 11, 2019 16:57
--- NOTE | 2019-05-11 17:00 | NUR ---
NURSE NOTES: RH IV site appears puffy and infiltrated,removed.Tried IV reinsertion with 24G angiocath x2 but pt is a hard stick.
--- NOTE | 2019-05-11 19:25 | NUR ---
HAND-OFF: Report given to Luís Medellin RN.
--- NOTE | 2019-05-11 19:30 | NUR ---
NURSE NOTES: Received pt and report from JEANNINE Santacruz. Patient's non-verbal, open eyes with voice. Sinus rhythm on the monitor. Shiley 6.0, receiving oxygen per T piece 28%, 5L. Pt's afebrile at this time 98.5F. VS stable. BP 140/90. Per earlier staff, Right hand peripheral line has been removed due to infiltration. Unable to insert a new line at this time. Will try later with night staff. With GJ tube. G tube connected to drainable bag per gravity. J tube receiving feeding of Vital AF 60ml/hr. Purewick in place, with clear yellow urine. Head of bed elevated. Bed locked and in low position. Call light within reach. Bed alarm on. Daughter at bedside. Will continue to monitor.
--- NOTE | 2019-05-11 23:00 | NUR ---
NURSE NOTES: Pt's resting in bed, in no acute distress. VS stable. Able to insert peripheral line 24G right breast area, intact, flushed well, no pain/ no redness noted, secured with Tegaderm. Will continue to monitor.
--- NOTE | 2019-05-11 23:22 | General Progress Note ---
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 - Anemia with OB (-) stools - Resp failure, s/p Trach - dysphagia, s/p PEG --> GJ tube - OBS, vegetative obtunded unresponsive state, bedbound with contracted extremities, - h/o minor GJ tube site irritation - poor Prognosis Recommendations - Not candidate for immune suppression at this time - abx per ID - daily sorbitol, and PRN sorbitol - Cristian BID - antibiotic ointment to GJT site PRN - aspiration precautions - elevate HOB - Vital AF 1.2 - check q 6 hour FS - transfuse to keep Hg > 7 - J tube feeds - G tube drain - IVF - check ESR --> elevated - further evaluation for autoimmune hepatitis (anti DNA, ASMA) Subjective Allergies: Coded Allergies: CODEINE (Verified Allergy, Unknown, HIVES, 09/15/09) Subjective above noted seen this am and d/w Dr Yang on abx for sepsis patient not candidate for immune supression for Rx of autoimmune hepatitis at this point Objective Last 24 Hour Vital Signs Date Time Temp Pulse Resp B/P (MAP) Pulse Ox O2 Delivery O2 Flow Rate FiO2 05/11/19 19:22 93 22 100 T-Piece 5.0 28 90 20 99 05/11/19 19:22 100 T-Piece 5.0 28 05/11/19 19:00 87 21 104/66 (79) 100 05/11/19 18:00 92 21 162/76 (104) 100 05/11/19 17:00 100 21 157/66 (96) 100 05/11/19 16:00 5.0 28 05/11/19 16:00 T-piece 5.0 T-piece 5.0 T-piece 5.0 T-piece 5.0 05/11/19 16:00 98.6 100 21 165/70 (101) 100 05/11/19 16:00 97 05/11/19 15:00 100 21 157/66 (96) 100 05/11/19 14:00 97 22 160/72 (101) 100 05/11/19 13:18 99 T-Piece 5.0 28 05/11/19 13:00 100 21 152/66 (94) 99 05/11/19 12:30 155/62 05/11/19 12:00 T-piece 5.0 T-piece 5.0 T-piece 5.0 T-piece 5.0 05/11/19 12:00 105 05/11/19 12:00 98.9 104 25 155/62 (93) 100 05/11/19 12:00 5.0 28 05/11/19 11:23 96 20 100 T-Piece 5.0 28 90 22 100 05/11/19 11:18 167/74 05/11/19 11:00 108 25 122/93 (103) 99 05/11/19 10:00 91 19 166/79 (108) 100 05/11/19 09:00 90 20 162/71 (101) 100 05/11/19 08:00 98.0 91 20 169/83 (111) 100 05/11/19 08:00 91 05/11/19 08:00 T-piece 5.0 T-piece 5.0 T-piece 5.0 T-piece 5.0 05/11/19 08:00 5.0 28 05/11/19 07:34 90 24 100 T-Piece 5.0 28 92 24 100 05/11/19 07:33 100 T-Piece 5.0 28 05/11/19 07:00 85 20 124/63 (83) 100 05/11/19 06:00 88 21 156/72 (100) 100 05/11/19 05:00 93 21 131/85 (100) 100 05/11/19 04:00 5.0 28 05/11/19 04:00 98.7 101 20 168/92 (117) 100 05/11/19 04:00 T-piece 5.0 T-piece 5.0 T-piece 5.0 T-piece 5.0 05/11/19 04:00 103 05/11/19 03:19 94 23 100 T-Piece 5.0 28 93 20 100 05/11/19 03:00 88 20 162/77 (105) 100 05/11/19 02:00 89 20 168/81 (110) 100 05/11/19 01:31 100 T-Piece 5.0 28 05/11/19 01:00 92 21 163/78 (106) 98 05/11/19 00:15 96 23 100 T-Piece 5.0 28 95 24 100 05/11/19 00:00 5.0 28 05/11/19 00:00 91 05/11/19 00:00 T-piece 5.0 T-piece 5.0 T-piece 5.0 T-piece 5.0 05/11/19 00:00 98.5 93 22 163/80 (107) 99 Intake and Output 05/10/19 05/11/19 19:00 07:00 Intake Total 2783.5 ml 2742.3 ml Output Total 500 ml 1300 ml Balance 2283.5 ml 1442.3 ml Free Water 300 ml 300 ml IV Total 1313.5 ml 1212.3 ml Tube Feeding 720 ml 780 ml Other 450 ml 450 ml Output Urine Total 500 ml 1000 ml Stool Total 300 ml # Bowel Movements 1 2 Laboratory Tests 05/11/19 05:55: White Blood Count 13.5H, Red Blood Count 3.29L, Hemoglobin 9.5L, Hematocrit 28.9L, Mean Corpuscular Volume 88, Mean Corpuscular Hemoglobin 28.9, Mean Corpuscular Hemoglobin Concent 33.0, Red Cell Distribution Width 15.4H, Platelet Count 173, Mean Platelet Volume 5.8L, Neutrophils (%) (Auto) 72.4, Lymphocytes (%) (Auto) 18.9L, Monocytes (%) (Auto) 5.6, Eosinophils (%) (Auto) 2.4, Basophils (%) (Auto) 0.7, Sodium Level 145, Potassium Level 4.5, Chloride Level 110H, Carbon Dioxide Level 27, Anion Gap 8, Blood Urea Nitrogen 52H, Creatinine 0.7, Estimat Glomerular Filtration Rate , Glucose Level 130H, Calcium Level 9.2, Total Bilirubin 0.3, Aspartate Amino Transf (AST/SGOT) 92H, Alanine Aminotransferase (ALT/SGPT) 267H, Alkaline Phosphatase 232H, Total Protein 7.7, Albumin 2.2L, Globulin 5.5, Albumin/Globulin Ratio 0.4L Height (Feet): 5 Height (Inches): 3.00 Weight (Pounds): 131 Objective Debilitated AA woman non-verbal, obtunded NCAT (+) trach coarse BS RR obese abd, (+) GJT no edema (+) contractured extremities Celio Vaughan MD May 11, 2019 23:22
[2019-05-12] VITALS (25 sets, daily range): BP systolic 118–172; BP diastolic 55–100
--- NOTE | 2019-05-12 01:00 | NUR ---
NURSE NOTES: Pt's resting in bed, in no acute distress, asleep with eyes closed. VS stable. Will continue to monitor.
--- NOTE | 2019-05-12 03:00 | NUR ---
NURSE NOTES: Pt's resting in bed, in no acute distress, asleep at this time with eyes closed. Vital signs stable. Will continue to monitor
[2019-05-12] MEDS: Albuterol/Ipratropium 3ml neb HHN SCH ×6 (03:03→23:25)
--- NOTE | 2019-05-12 05:00 | NUR ---
NURSE NOTES: Pt's resting in bed, asleep, in no acute distress. VS stable. Will continue to monitor.
--- NOTE | 2019-05-12 07:18 | NUR ---
HAND-OFF: Report given to JEANNINE Rodriguez.
[2019-05-12 07:19] LABS: ALANINE AMINOTRANSFERASE 188 U/L (12-78); ALBUMIN 2.2 G/DL (3.4-5.0); ALBUMIN/GLOBULIN RATIO 0.4 (1.0-2.7); ALKALINE PHOSPHATASE 219 U/L (46-116); ANION GAP 9 mmol/L (5-15); ASPARTATE AMINO TRANSFERASE 40 U/L (15-37); BILIRUBIN,TOTAL 0.2 MG/DL (0.2-1.0); BLOOD UREA NITROGEN 38 mg/dL (7-18); CALCIUM 8.9 MG/DL (8.5-10.1); CARBON DIOXIDE 27 MMOL/L (21-32); CHLORIDE 105 MMOL/L (98-107); CREATININE 0.7 MG/DL (0.55-1.30); POTASSIUM 3.7 MMOL/L (3.5-5.1); SODIUM 141 MMOL/L (136-145)
[2019-05-12 07:27] LABS: BASOPHILS % (AUTO) 0.5 % (0.0-2.0); EOSINOPHILS % (AUTO) 2.1 % (0.0-3.0); HEMATOCRIT 28.6 % (37.0-47.0); HEMOGLOBIN 9.5 G/DL (12.0-16.0); MEAN CORPUSCULAR VOLUME 88 FL (80-99); MONOCYTES % (AUTO) 7.3 % (1.0-10.0); NEUTROPHILS % (AUTO) 68.1 % (45.0-75.0); PLATELET COUNT 193 K/UL (150-450); RED BLOOD COUNT 3.26 M/UL (4.20-5.40)
--- NOTE | 2019-05-12 08:00 | NUR ---
NURSE NOTES: Received change of shift report from Luís PAEZ. Pt has eyes closed, opens eyes to touch, withdraws to pain, does not follow commands. Pt has trach, Shiley 6, XLT connected to Tpiece at 28% FIO2 at 100% O2Sat with bilateral inspiratory and expiratory rhonchi noted on auscultation. NSR on cardiac monitor technician, HR 70. Pt has GJ-tube. JT is connected to Vital AF 1.2 at goal rate of 60ml. GT is connected to gravity, with small output of yellow liquid. Pt is tolerating feeding well with no noted residual. Abdomen is large, round, soft, nontender to touch with hypoactive bowel sounds. Right upper chest peripheral IV access #24G, with IV fluid D5NS at 100ml/hour. External urinary catheter is in place, draining clear/yellow urine. Skin has left hand wound, covered with dressing, dry/intact. Pt is on P200 pressure releasing mattress with bilateral heels/elevated, floating/off heels. Will continue with plan of care.
--- NOTE | 2019-05-12 08:28 | Pulmonology Progress Note ---
Assessment/Plan Assessment/Plan Impression: history of Sepsis history of Pneumonia Trach, G tube, Hypertension, Cardiac disease, Dementia, Previous CVA, Seizure disorder, Respiratory failure with hypoxia Anemia, Sacral ulcer renal cyst chronic pulmonary congestion Plan continue as is monitor for change; care reviewed recent cultures reviewed and ID noted monitor imaging PRN and advise monitor labs maintain reflux aspiration elevate head and monitor secretions DNR. No CPR. ICU care reviewed meds noted and updated; neb therapy off load as able nutrition/fees/ dietary as is; monitor residuals skin care management reviewed difficulty with placement all changes noted and discussed chronic management as able medications/laboratory data/nursing notes/ICU care reviewed in detail note reviewed and edited care discussed with RN and RT Subjective ROS Limited/Unobtainable: Yes Allergies: Coded Allergies: CODEINE (Verified Allergy, Unknown, HIVES, 09/15/09) Subjective overnight events noted; poor LOC multiple cultures noted significant contractures ICU care issues discussed bed bound and obtunded Objective Last 24 Hour Vital Signs Date Time Temp Pulse Resp B/P (MAP) Pulse Ox O2 Delivery O2 Flow Rate FiO2 05/12/19 07:22 99 T-Piece 5.0 28 05/12/19 07:22 101 22 100 T-Piece 5.0 28 99 21 99 05/12/19 07:00 98.5 96 20 141/71 (94) 100 05/12/19 06:00 104 20 143/58 (86) 100 05/12/19 05:00 92 20 144/62 (89) 100 05/12/19 04:00 95 05/12/19 04:00 T-piece 5.0 T-piece 5.0 T-piece 5.0 T-piece 5.0 05/12/19 04:00 5.0 28 05/12/19 04:00 92 19 130/100 (110) 100 05/12/19 03:13 99 22 100 T-Piece 5.0 28 05/12/19 03:03 97 21 100 T-Piece 5.0 28 05/12/19 03:00 97 19 132/59 (83) 100 05/12/19 02:00 98.5 99 19 138/60 (86) 99 05/12/19 01:00 113 20 137/62 (87) 98 05/12/19 00:45 99 T-Piece 5.0 28 05/12/19 00:30 117 21 141/60 (87) 98 05/12/19 00:08 172/75 05/12/19 00:00 T-piece 5.0 T-piece 5.0 T-piece 5.0 T-piece 5.0 05/12/19 00:00 107 05/12/19 00:00 102 22 172/75 (107) 99 05/12/19 00:00 5.0 28 05/11/19 23:29 91 20 100 T-Piece 5.0 28 96 22 98 05/11/19 23:00 93 21 161/73 (102) 100 05/11/19 22:00 89 17 142/65 (90) 100 05/11/19 21:00 88 20 156/73 (100) 99 05/11/19 20:00 98.6 86 18 161/63 (95) 100 05/11/19 20:00 T-piece 5.0 T-piece 5.0 T-piece 5.0 T-piece 5.0 05/11/19 20:00 94 05/11/19 20:00 5.0 28 05/11/19 19:22 93 22 100 T-Piece 5.0 28 90 20 99 05/11/19 19:22 100 T-Piece 5.0 28 05/11/19 19:00 87 21 104/66 (79) 100 05/11/19 18:00 92 21 162/76 (104) 100 05/11/19 17:00 100 21 157/66 (96) 100 05/11/19 16:00 5.0 28 05/11/19 16:00 T-piece 5.0 T-piece 5.0 T-piece 5.0 T-piece 5.0 05/11/19 16:00 98.6 100 21 165/70 (101) 100 05/11/19 16:00 97 05/11/19 15:00 100 21 157/66 (96) 100 05/11/19 14:00 97 22 160/72 (101) 100 05/11/19 13:18 99 T-Piece 5.0 28 05/11/19 13:00 100 21 152/66 (94) 99 05/11/19 12:30 155/62 05/11/19 12:00 T-piece 5.0 T-piece 5.0 T-piece 5.0 T-piece 5.0 05/11/19 12:00 105 05/11/19 12:00 98.9 104 25 155/62 (93) 100 05/11/19 12:00 5.0 28 05/11/19 11:23 96 20 100 T-Piece 5.0 28 90 22 100 05/11/19 11:18 167/74 05/11/19 11:00 108 25 122/93 (103) 99 05/11/19 10:00 91 19 166/79 (108) 100 05/11/19 09:00 90 20 162/71 (101) 100 Intake and Output 05/11/19 05/12/19 19:00 07:00 Intake Total 2470 ml 3280 ml Balance 2470 ml 3280 ml Free Water 300 ml 150 ml IV Total 1000 ml 2160 ml Tube Feeding 720 ml 720 ml Other 450 ml 250 ml Objective WDWN NAD contracted off vent reduced breath sounds bilaterally without rhonchi or wheeze [id number] without MRG NABS nontender no HSM no CC trace edema same nonfocal nonverbal trach and gt reviewed and edited Laboratory Tests 05/12/19 05:30: White Blood Count 16.0H, Red Blood Count 3.26L, Hemoglobin 9.5L, Hematocrit 28.6L, Mean Corpuscular Volume 88, Mean Corpuscular Hemoglobin 29.0, Mean Corpuscular Hemoglobin Concent 33.1, Red Cell Distribution Width 15.0H, Platelet Count 193, Mean Platelet Volume 6.7, Neutrophils (%) (Auto) 68.1, Lymphocytes (%) (Auto) 22.0, Monocytes (%) (Auto) 7.3, Eosinophils (%) (Auto) 2.1, Basophils (%) (Auto) 0.5, Sodium Level 141, Potassium Level 3.7, Chloride Level 105, Carbon Dioxide Level 27, Anion Gap 9, Blood Urea Nitrogen 38H, Creatinine 0.7, Estimat Glomerular Filtration Rate , Glucose Level 170H, Calcium Level 8.9, Total Bilirubin 0.2, Aspartate Amino Transf (AST/SGOT) 40H, Alanine Aminotransferase (ALT/SGPT) 188H, Alkaline Phosphatase 219H, Total Protein 7.4, Albumin 2.2L, Globulin 5.2, Albumin/Globulin Ratio 0.4L Current Medications Medications (Trade) Dose Ordered Sig/Maicol Route PRN Reason Start Time Stop Time Status Last Admin Dose Admin Acetaminophen (Tylenol) 650 mg Q4H PRN RECTAL T>100.5 / Mild Pain 05/07/19 09:45 06/06/19 09:44 05/07/19 10:13 Albuterol/ Ipratropium (Albuterol/ Ipratropium) 3 ml Q4HRT HHN 05/10/19 19:00 05/15/19 18:59 05/12/19 07:22 Atropine Sulfate (Atropine Opth Adriana) 1 drop Q6HR SL 05/11/19 00:00 06/10/19 08:59 05/12/19 06:06 Dextrose/Sodium Chloride 1,000 ml @ 100 mls/hr Q10H IV 05/07/19 20:15 06/06/19 20:14 05/11/19 23:09 Heparin Sodium (Porcine) (Heparin 5000 units/ml) 5,000 units EVERY 12 HOURS SUBQ 05/01/19 21:00 05/31/19 20:59 05/11/19 21:14 Hydralazine HCl (Apresoline) 10 mg Q4H PRN IV For High Blood Pressure 05/11/19 05:45 06/10/19 05:44 05/12/19 00:08 Levetiracetam (Keppra) 500 mg Q12HR GT 05/01/19 21:00 05/28/19 08:59 05/11/19 21:13 Linezolid 300 ml @ 300 mls/hr Q12HR@1000,2200 IVPB 05/11/19 12:00 05/18/19 11:59 05/11/19 22:56 Meropenem 1 gm/ Sodium Chloride 110 ml @ 220 mls/hr Q12HR@1000,2200 IVPB 05/11/19 12:00 05/16/19 11:59 05/11/19 22:56 Norepinephrine Bitartrate 4 mg/ Dextrose 250 ml @ 0 mls/hr Q24H IV 05/07/19 12:30 06/06/19 12:29 05/07/19 12:24 Polymyxin B Sulfate 097107 units/Dextrose 550 ml @ 550 mls/hr Q12HR IV 05/11/19 13:00 05/18/19 12:59 05/11/19 23:10 Sorbitol (Sorbitol) 30 ml BIDPRN PRN ORAL Constipation 04/13/19 11:15 05/13/19 11:14 Sorbitol (sorbitoL) 30 ml DAILY GT 04/14/19 09:00 05/14/19 08:59 05/11/19 09:07 Amaury Chan MD May 12, 2019 08:28
--- NOTE | 2019-05-12 10:00 | NUR ---
NURSE NOTES: AM meds were administered. Oral care was done and pt suctioned. VS remain stable. Pt was cleaned and repositioned, gown/bed linens were changed.
--- NOTE | 2019-05-12 10:40 | Infectious Diseases Prog Note ---
"Assessment/Plan Assessment/Plan antibiotics : linezolid, meropenem, polymyxin 2.10.20 - A 1. proteus | pseudomonas | providencia pneumonia 2. klebsiella sepsis s/p catheter removal 3. respiratory failure 4. hypertension 5. CVA 6. dementia 7. rectal VRE colonization 8. leucocytosis 9. shock 10 gram positive UTI P 1. continue linezolid, meropenem, polymyxin 2. will follow up cultures Subjective ROS Limited/Unobtainable: Yes Allergies: Coded Allergies: CODEINE (Verified Allergy, Unknown, HIVES, 09/15/09) Objective Vital Signs Last 24 Hour Vital Signs Date Time Temp Pulse Resp B/P (MAP) Pulse Ox O2 Delivery O2 Flow Rate FiO2 05/12/19 08:00 100 05/12/19 07:22 99 T-Piece 5.0 28 05/12/19 07:22 101 22 100 T-Piece 5.0 28 99 21 99 05/12/19 07:00 98.5 96 20 141/71 (94) 100 05/12/19 06:00 104 20 143/58 (86) 100 05/12/19 05:00 92 20 144/62 (89) 100 05/12/19 04:00 95 05/12/19 04:00 T-piece 5.0 T-piece 5.0 T-piece 5.0 T-piece 5.0 05/12/19 04:00 5.0 28 05/12/19 04:00 92 19 130/100 (110) 100 05/12/19 03:13 99 22 100 T-Piece 5.0 28 05/12/19 03:03 97 21 100 T-Piece 5.0 28 05/12/19 03:00 97 19 132/59 (83) 100 05/12/19 02:00 98.5 99 19 138/60 (86) 99 05/12/19 01:00 113 20 137/62 (87) 98 05/12/19 00:45 99 T-Piece 5.0 28 05/12/19 00:30 117 21 141/60 (87) 98 05/12/19 00:08 172/75 05/12/19 00:00 T-piece 5.0 T-piece 5.0 T-piece 5.0 T-piece 5.0 05/12/19 00:00 107 05/12/19 00:00 102 22 172/75 (107) 99 05/12/19 00:00 5.0 28 05/11/19 23:29 91 20 100 T-Piece 5.0 28 96 22 98 05/11/19 23:00 93 21 161/73 (102) 100 05/11/19 22:00 89 17 142/65 (90) 100 05/11/19 21:00 88 20 156/73 (100) 99 05/11/19 20:00 98.6 86 18 161/63 (95) 100 05/11/19 20:00 T-piece 5.0 T-piece 5.0 T-piece 5.0 T-piece 5.0 05/11/19 20:00 94 05/11/19 20:00 5.0 28 05/11/19 19:22 93 22 100 T-Piece 5.0 28 90 20 99 05/11/19 19:22 100 T-Piece 5.0 28 05/11/19 19:00 87 21 104/66 (79) 100 05/11/19 18:00 92 21 162/76 (104) 100 05/11/19 17:00 100 21 157/66 (96) 100 05/11/19 16:00 5.0 28 05/11/19 16:00 T-piece 5.0 T-piece 5.0 T-piece 5.0 T-piece 5.0 05/11/19 16:00 98.6 100 21 165/70 (101) 100 05/11/19 16:00 97 05/11/19 15:00 100 21 157/66 (96) 100 05/11/19 14:00 97 22 160/72 (101) 100 05/11/19 13:18 99 T-Piece 5.0 28 05/11/19 13:00 100 21 152/66 (94) 99 05/11/19 12:30 155/62 05/11/19 12:00 T-piece 5.0 T-piece 5.0 T-piece 5.0 T-piece 5.0 05/11/19 12:00 105 05/11/19 12:00 98.9 104 25 155/62 (93) 100 05/11/19 12:00 5.0 28 05/11/19 11:23 96 20 100 T-Piece 5.0 28 90 22 100 05/11/19 11:18 167/74 05/11/19 11:00 108 25 122/93 (103) 99 Height (Feet): 5 Height (Inches): 3.00 Weight (Pounds): 130 HEENT: status post trach Respiratory/Chest: crackles/rales - decreased, rhonchi - bilaterally - decreased Cardiovascular: normal rate, regular rhythm, no gallop/murmur Abdomen: soft, non tender, other - GT Extremities: no edema Laboratory Tests Test 05/12/19 05:30 White Blood Count 16.0 K/UL (4.8-10.8) H Red Blood Count 3.26 M/UL (4.20-5.40) L Hemoglobin 9.5 G/DL (12.0-16.0) L Hematocrit 28.6 % (37.0-47.0) L Mean Corpuscular Volume 88 FL (80-99) Mean Corpuscular Hemoglobin 29.0 PG (27.0-31.0) Mean Corpuscular Hemoglobin Concent 33.1 G/DL (32.0-36.0) Red Cell Distribution Width 15.0 % (11.6-14.8) H Platelet Count 193 K/UL (150-450) Mean Platelet Volume 6.7 FL (6.5-10.1) Neutrophils (%) (Auto) 68.1 % (45.0-75.0) Lymphocytes (%) (Auto) 22.0 % (20.0-45.0) Monocytes (%) (Auto) 7.3 % (1.0-10.0) Eosinophils (%) (Auto) 2.1 % (0.0-3.0) Basophils (%) (Auto) 0.5 % (0.0-2.0) Sodium Level 141 MMOL/L (136-145) Potassium Level 3.7 MMOL/L (3.5-5.1) Chloride Level 105 MMOL/L (98-107) Carbon Dioxide Level 27 MMOL/L (21-32) Anion Gap 9 mmol/L (5-15) Blood Urea Nitrogen 38 mg/dL (7-18) H Creatinine 0.7 MG/DL (0.55-1.30) Estimat Glomerular Filtration Rate mL/min (>60) Glucose Level 170 MG/DL (74-106) H Calcium Level 8.9 MG/DL (8.5-10.1) Total Bilirubin 0.2 MG/DL (0.2-1.0) Aspartate Amino Transf (AST/SGOT) 40 U/L (15-37) H Alanine Aminotransferase (ALT/SGPT) 188 U/L (12-78) H Alkaline Phosphatase 219 U/L (46-116) H Total Protein 7.4 G/DL (6.4-8.2) Albumin 2.2 G/DL (3.4-5.0) L Globulin 5.2 g/dL Albumin/Globulin Ratio 0.4 (1.0-2.7) L Current Medications Medications (Trade) Dose Ordered Sig/Maicol Route PRN Reason Start Time Stop Time Status Last Admin Dose Admin Acetaminophen (Tylenol) 650 mg Q4H PRN RECTAL T>100.5 / Mild Pain 05/07/19 09:45 06/06/19 09:44 05/07/19 10:13 Albuterol/ Ipratropium (Albuterol/ Ipratropium) 3 ml Q4HRT HHN 05/10/19 19:00 05/15/19 18:59 05/12/19 07:22 Atropine Sulfate (Atropine Opth Adriana) 1 drop Q6HR SL 05/11/19 00:00 06/10/19 08:59 05/12/19 06:06 Dextrose/Sodium Chloride 1,000 ml @ 100 mls/hr Q10H IV 05/07/19 20:15 06/06/19 20:14 05/11/19 23:09 Heparin Sodium (Porcine) (Heparin 5000 units/ml) 5,000 units EVERY 12 HOURS SUBQ 05/01/19 21:00 05/31/19 20:59 05/11/19 21:14 Hydralazine HCl (Apresoline) 10 mg Q4H PRN IV For High Blood Pressure 05/11/19 05:45 06/10/19 05:44 05/12/19 00:08 Levetiracetam (Keppra) 500 mg Q12HR GT 05/01/19 21:00 05/28/19 08:59 05/11/19 21:13 Linezolid 300 ml @ 300 mls/hr Q12HR@1000,2200 IVPB 05/11/19 12:00 05/18/19 11:59 05/11/19 22:56 Meropenem 1 gm/ Sodium Chloride 110 ml @ 220 mls/hr Q12HR@1000,2200 IVPB 05/11/19 12:00 05/16/19 11:59 05/11/19 22:56 Norepinephrine Bitartrate 4 mg/ Dextrose 250 ml @ 0 mls/hr Q24H IV 05/07/19 12:30 06/06/19 12:29 05/07/19 12:24 Polymyxin B Sulfate 621193 units/Dextrose 550 ml @ 550 mls/hr Q12HR IV 05/11/19 13:00 05/18/19 12:59 05/11/19 23:10 Sorbitol (Sorbitol) 30 ml BIDPRN PRN ORAL Constipation 04/13/19 11:15 05/13/19 11:14 Sorbitol (sorbitoL) 30 ml DAILY GT 04/14/19 09:00 05/14/19 08:59 05/11/19 09:07 Geovany Yang MD May 12, 2019 10:40"
[2019-05-12] MEDS: POLYMYXIN B SULFATE IV SCH ×2 (11:16→21:25)
[2019-05-12] MEDS: Meropenem 1gm/NS 110ml IVPB SCH ×4 (11:16→22:03)
[2019-05-12] MEDS: D5W IV SCH ×2 (11:16→21:25)
[2019-05-12] MEDS: levETIRAcetam 500mg/5ml Liquid GT SCH ×2 (11:17→20:35)
[2019-05-12] MEDS: Sorbitol Solution UD 30ml GT SCH (11:17)
[2019-05-12] MEDS: Linezolid 600mg/300mL Premix IVPB SCH ×2 (11:17→22:58)
[2019-05-12] MEDS: D5NS 1,000 ML IV SCH ×2 (11:17→20:35)
[2019-05-12] MEDS: Heparin 5000 units/ml inj SUBQ SCH ×2 (11:20→20:36)
--- NOTE | 2019-05-12 12:00 | NUR ---
NURSE NOTES: Pt was cleaned and repositioned. Pt had moderate amount of secretions, which was suctioned via trach and orally. Oral care was done. VS remain stable. Pt remains afebrile.
--- NOTE | 2019-05-12 14:00 | NUR ---
NURSE NOTES: VS remain stable. Pt was cleaned and repositioned. Oral care was done and pt suctioned.
--- NOTE | 2019-05-12 16:00 | NUR ---
NURSE NOTES: Pt was suctioned. VS remain stable. Pt remains afebrile. Currently tolerating tube feeding with no vomiting or residual noted.
[2019-05-12] MEDS ORDERED: Tubing IV Secondary IV ONE (16:01)
[2019-05-12] MEDS ORDERED: D5NS 1000ml IV ONE (16:01)
[2019-05-12] MEDS ORDERED: NS 275ml ONE (16:01)
--- NOTE | 2019-05-12 16:54 | Nephrology Progress Note ---
Assessment/Plan Problem List: (1) Acute renal failure (ARF) Assessment: Cr stable (2) Chronic respiratory failure (3) Anemia (4) Sepsis Assessment Acute renal failure Respiratory failure - Trach Low Mag- Low k , Low Na Anemia UTI / Sepsis Proteinuria / HypoAlbuminemia high Trigs Sz decubs bed bound DNR Plan Transfused 05/09 now has JT bolus Albumin as needed K and Mag and Phos supplement as needed Hydrate as needed Urine studies avoid Nephrotoxics mag K Phos supplements as needed monitor renal parameters Subjective ROS Limited/Unobtainable: Yes Objective Objective Last 24 Hour Vital Signs Date Time Temp Pulse Resp B/P (MAP) Pulse Ox O2 Delivery O2 Flow Rate FiO2 05/12/19 16:00 T-piece 5.0 T-piece 5.0 T-piece 5.0 T-piece 5.0 05/12/19 16:00 5.0 28 05/12/19 16:00 94 05/12/19 16:00 98.3 95 20 148/71 (96) 99 05/12/19 15:31 94 17 100 T-Piece 5.0 28 94 20 97 05/12/19 15:00 97 21 134/72 (92) 97 05/12/19 14:00 103 21 131/61 (84) 100 05/12/19 13:21 100 T-Piece 5.0 28 05/12/19 13:00 102 24 124/56 (78) 100 05/12/19 12:00 98.3 103 20 144/55 (84) 100 05/12/19 12:00 T-piece 5.0 T-piece 5.0 T-piece 5.0 T-piece 5.0 05/12/19 12:00 103 05/12/19 12:00 5.0 28 05/12/19 11:54 99 20 100 T-Piece 5.0 28 103 21 100 05/12/19 11:00 70 19 152/73 (99) 100 05/12/19 10:00 97 21 165/71 (102) 100 05/12/19 09:00 95 20 149/66 (93) 100 05/12/19 08:00 97 20 118/90 (99) 100 05/12/19 08:00 5.0 28 05/12/19 08:00 100 05/12/19 08:00 T-piece 5.0 T-piece 5.0 T-piece 5.0 T-piece 5.0 05/12/19 07:22 99 T-Piece 5.0 28 05/12/19 07:22 101 22 100 T-Piece 5.0 28 99 21 99 05/12/19 07:00 98.5 96 20 141/71 (94) 100 05/12/19 06:00 104 20 143/58 (86) 100 05/12/19 05:00 92 20 144/62 (89) 100 05/12/19 04:00 95 05/12/19 04:00 T-piece 5.0 T-piece 5.0 T-piece 5.0 T-piece 5.0 05/12/19 04:00 5.0 28 05/12/19 04:00 92 19 130/100 (110) 100 05/12/19 03:13 99 22 100 T-Piece 5.0 28 05/12/19 03:03 97 21 100 T-Piece 5.0 28 05/12/19 03:00 97 19 132/59 (83) 100 05/12/19 02:00 98.5 99 19 138/60 (86) 99 05/12/19 01:00 113 20 137/62 (87) 98 05/12/19 00:45 99 T-Piece 5.0 28 05/12/19 00:30 117 21 141/60 (87) 98 05/12/19 00:08 172/75 05/12/19 00:00 T-piece 5.0 T-piece 5.0 T-piece 5.0 T-piece 5.0 05/12/19 00:00 107 05/12/19 00:00 102 22 172/75 (107) 99 05/12/19 00:00 5.0 28 05/11/19 23:29 91 20 100 T-Piece 5.0 28 96 22 98 05/11/19 23:00 93 21 161/73 (102) 100 05/11/19 22:00 89 17 142/65 (90) 100 05/11/19 21:00 88 20 156/73 (100) 99 05/11/19 20:00 98.6 86 18 161/63 (95) 100 05/11/19 20:00 T-piece 5.0 T-piece 5.0 T-piece 5.0 T-piece 5.0 05/11/19 20:00 94 05/11/19 20:00 5.0 28 05/11/19 19:22 93 22 100 T-Piece 5.0 28 90 20 99 05/11/19 19:22 100 T-Piece 5.0 28 05/11/19 19:00 87 21 104/66 (79) 100 05/11/19 18:00 92 21 162/76 (104) 100 05/11/19 17:00 100 21 157/66 (96) 100 Intake and Output 05/11/19 05/12/19 19:00 07:00 Intake Total 2470 ml 3280 ml Balance 2470 ml 3280 ml Free Water 300 ml 150 ml IV Total 1000 ml 2160 ml Tube Feeding 720 ml 720 ml Other 450 ml 250 ml Laboratory Tests 05/12/19 05:30: White Blood Count 16.0H, Red Blood Count 3.26L, Hemoglobin 9.5L, Hematocrit 28.6L, Mean Corpuscular Volume 88, Mean Corpuscular Hemoglobin 29.0, Mean Corpuscular Hemoglobin Concent 33.1, Red Cell Distribution Width 15.0H, Platelet Count 193, Mean Platelet Volume 6.7, Neutrophils (%) (Auto) 68.1, Lymphocytes (%) (Auto) 22.0, Monocytes (%) (Auto) 7.3, Eosinophils (%) (Auto) 2.1, Basophils (%) (Auto) 0.5, Sodium Level 141, Potassium Level 3.7, Chloride Level 105, Carbon Dioxide Level 27, Anion Gap 9, Blood Urea Nitrogen 38H, Creatinine 0.7, Estimat Glomerular Filtration Rate , Glucose Level 170H, Calcium Level 8.9, Total Bilirubin 0.2, Aspartate Amino Transf (AST/SGOT) 40H, Alanine Aminotransferase (ALT/SGPT) 188H, Alkaline Phosphatase 219H, Total Protein 7.4, Albumin 2.2L, Globulin 5.2, Albumin/Globulin Ratio 0.4L Height (Feet): 5 Height (Inches): 3.00 Weight (Pounds): 130 General Appearance: mild distress Cardiovascular: tachycardia Respiratory/Chest: decreased breath sounds Abdomen: distended Objective no change Eric Coretz MD May 12, 2019 16:54
--- NOTE | 2019-05-12 18:00 | NUR ---
NURSE NOTES: Pt was cleaned, gown/bed linens were changed. Pt was suctioned. VS remain stable. Gport remains connected to gravity with output of brown/liquid.
--- NOTE | 2019-05-12 19:47 | NUR ---
NURSE NOTES: Received patient from Jennifer PAEZ. Patient is obtunded, Sinus Rhythm on the Heart Monitor, HR 99. Receiving oxygen via T-piece, Shiley 6 XLT, Fio2 28% 5L/min. J-tube is intact and receiving Vital AF 1.2 at 60cc/hr, G-tube is intact and draining by gravity. IV site is Right Subclavian 24g, receiving D5NS at 100cc/hr. Purewick is intact and draining. Bed is locked, placed in lowest position, side rails up x3, bed alarm on, head of bed elevated, call light within reach, bed alarm on. Will continue to monitor.
--- NOTE | 2019-05-12 19:47 | General Progress Note ---
Assessment/Plan Problem List: (1) Seizure ICD Codes: R56.9 - Unspecified convulsions SNOMED: 83549662 (2) Anemia ICD Codes: D64.9 - Anemia, unspecified SNOMED: 710908698 Qualifiers: Qualified Codes: D64.9 - Anemia, unspecified (3) Sepsis ICD Codes: A41.9 - Sepsis, unspecified organism SNOMED: 81257316, 542968742 Qualifiers: Qualified Codes: A41.9 - Sepsis, unspecified organism (4) Respiratory failure with hypoxia ICD Codes: J96.91 - Respiratory failure, unspecified with hypoxia SNOMED: 68833059704958794 Qualifiers: Qualified Codes: J96.21 - Acute and chronic respiratory failure with hypoxia (5) HCAP (healthcare-associated pneumonia) ICD Codes: J18.9 - Pneumonia, unspecified organism SNOMED: 022038456, 450055524 (6) Sacral decubitus ulcer ICD Codes: L89.159 - Pressure ulcer of sacral region, unspecified stage SNOMED: 516126949 (7) HTN (hypertension) ICD Codes: I10 - Essential (primary) hypertension SNOMED: 66721493 (8) Chronic vegetative state ICD Codes: R40.3 - Persistent vegetative state SNOMED: 72336100 (9) Chronic respiratory failure ICD Codes: J96.10 - Chronic respiratory failure, unspecified whether with hypoxia or hypercapnia SNOMED: 03450182 (10) Limited mobility ICD Codes: Z74.09 - Other reduced mobility SNOMED: 1228061 Status: stable, progressing Assessment/Plan: follow up cultures iv abx per id ivf monitor for bleeding vent as needed resp rx suctioning j tube feeds g port to gravity skin care sz rx bowel regime Subjective ROS Limited/Unobtainable: Yes Constitutional: Reports: malaise, weakness HEENT: Reports: no symptoms Cardiovascular: Reports: no symptoms Respiratory: Reports: shortness of breath, sputum Gastrointestinal/Abdominal: Reports: poor appetite Genitourinary: Reports: no symptoms Neurologic/Psychiatric: Reports: pre-existing deficit, seizure Endocrine: Reports: no symptoms Hematologic/Lymphatic: Reports: no symptoms Allergies: Coded Allergies: CODEINE (Verified Allergy, Unknown, HIVES, 09/15/09) All Systems: reviewed and negative except above Subjective no events. stable on the vent. no fever, no bleeding. on iv abx. Objective Last 24 Hour Vital Signs Date Time Temp Pulse Resp B/P (MAP) Pulse Ox O2 Delivery O2 Flow Rate FiO2 05/12/19 19:00 97 19 128/63 (84) 100 05/12/19 18:00 95 19 143/69 (93) 99 05/12/19 17:00 94 19 140/66 (90) 100 05/12/19 16:00 T-piece 5.0 T-piece 5.0 T-piece 5.0 T-piece 5.0 05/12/19 16:00 5.0 28 05/12/19 16:00 94 05/12/19 16:00 98.3 95 20 148/71 (96) 99 05/12/19 15:31 94 17 100 T-Piece 5.0 28 94 20 97 05/12/19 15:00 97 21 134/72 (92) 97 05/12/19 14:00 103 21 131/61 (84) 100 05/12/19 13:21 100 T-Piece 5.0 28 05/12/19 13:00 102 24 124/56 (78) 100 05/12/19 12:00 98.3 103 20 144/55 (84) 100 05/12/19 12:00 T-piece 5.0 T-piece 5.0 T-piece 5.0 T-piece 5.0 05/12/19 12:00 103 05/12/19 12:00 5.0 28 05/12/19 11:54 99 20 100 T-Piece 5.0 28 103 21 100 05/12/19 11:00 70 19 152/73 (99) 100 05/12/19 10:00 97 21 165/71 (102) 100 05/12/19 09:00 95 20 149/66 (93) 100 05/12/19 08:00 97 20 118/90 (99) 100 05/12/19 08:00 5.0 28 05/12/19 08:00 100 05/12/19 08:00 T-piece 5.0 T-piece 5.0 T-piece 5.0 T-piece 5.0 05/12/19 07:22 99 T-Piece 5.0 28 05/12/19 07:22 101 22 100 T-Piece 5.0 28 99 21 99 05/12/19 07:00 98.5 96 20 141/71 (94) 100 05/12/19 06:00 104 20 143/58 (86) 100 05/12/19 05:00 92 20 144/62 (89) 100 05/12/19 04:00 95 05/12/19 04:00 T-piece 5.0 T-piece 5.0 T-piece 5.0 T-piece 5.0 05/12/19 04:00 5.0 28 05/12/19 04:00 92 19 130/100 (110) 100 05/12/19 03:13 99 22 100 T-Piece 5.0 28 05/12/19 03:03 97 21 100 T-Piece 5.0 28 05/12/19 03:00 97 19 132/59 (83) 100 05/12/19 02:00 98.5 99 19 138/60 (86) 99 05/12/19 01:00 113 20 137/62 (87) 98 05/12/19 00:45 99 T-Piece 5.0 28 05/12/19 00:30 117 21 141/60 (87) 98 05/12/19 00:08 172/75 05/12/19 00:00 T-piece 5.0 T-piece 5.0 T-piece 5.0 T-piece 5.0 05/12/19 00:00 107 05/12/19 00:00 102 22 172/75 (107) 99 05/12/19 00:00 5.0 28 05/11/19 23:29 91 20 100 T-Piece 5.0 28 96 22 98 05/11/19 23:00 93 21 161/73 (102) 100 05/11/19 22:00 89 17 142/65 (90) 100 05/11/19 21:00 88 20 156/73 (100) 99 05/11/19 20:00 98.6 86 18 161/63 (95) 100 05/11/19 20:00 T-piece 5.0 T-piece 5.0 T-piece 5.0 T-piece 5.0 05/11/19 20:00 94 05/11/19 20:00 5.0 28 Intake and Output 05/11/19 05/12/19 19:00 07:00 Intake Total 2470 ml 3280 ml Balance 2470 ml 3280 ml Free Water 300 ml 150 ml IV Total 1000 ml 2160 ml Tube Feeding 720 ml 720 ml Other 450 ml 250 ml Laboratory Tests 05/12/19 05:30: White Blood Count 16.0H, Red Blood Count 3.26L, Hemoglobin 9.5L, Hematocrit 28.6L, Mean Corpuscular Volume 88, Mean Corpuscular Hemoglobin 29.0, Mean Corpuscular Hemoglobin Concent 33.1, Red Cell Distribution Width 15.0H, Platelet Count 193, Mean Platelet Volume 6.7, Neutrophils (%) (Auto) 68.1, Lymphocytes (%) (Auto) 22.0, Monocytes (%) (Auto) 7.3, Eosinophils (%) (Auto) 2.1, Basophils (%) (Auto) 0.5, Sodium Level 141, Potassium Level 3.7, Chloride Level 105, Carbon Dioxide Level 27, Anion Gap 9, Blood Urea Nitrogen 38H, Creatinine 0.7, Estimat Glomerular Filtration Rate , Glucose Level 170H, Calcium Level 8.9, Total Bilirubin 0.2, Aspartate Amino Transf (AST/SGOT) 40H, Alanine Aminotransferase (ALT/SGPT) 188H, Alkaline Phosphatase 219H, Total Protein 7.4, Albumin 2.2L, Globulin 5.2, Albumin/Globulin Ratio 0.4L Height (Feet): 5 Height (Inches): 3.00 Weight (Pounds): 130 Objective General Appearance: WD/WN, confused. on trach collar Neck: supple Cardiovascular: normal rate, regular rhythm Respiratory/Chest: chest wall non-tender, rhonchi - bilaterally(minimal) Abdomen: normal bowel sounds, non tender, soft, no organomegaly Edema: no edema noted Arm (L), no edema noted Arm (R), no edema noted Leg (L), no edema noted Leg (R), no edema noted Pedal (L), no edema noted Pedal (R), no edema noted Generalized Neurologic: disoriented, unresponsive, aphasia Irvin Beltrán MD May 12, 2019 19:47
--- NOTE | 2019-05-12 20:49 | General Progress Note ---
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 - Anemia with OB (-) stools - Resp failure, s/p Trach - dysphagia, s/p PEG --> GJ tube - OBS, vegetative obtunded unresponsive state, bedbound with contracted extremities, - h/o minor GJ tube site irritation - poor Prognosis Recommendations - Not candidate for immune suppression at this time - abx per ID - daily sorbitol, and PRN sorbitol - Cristian BID - antibiotic ointment to GJT site PRN - aspiration precautions - elevate HOB - Vital AF 1.2 - check q 6 hour FS - transfuse to keep Hg > 7 - J tube feeds - G tube drain - IVF - check ESR --> elevated - further evaluation for autoimmune hepatitis (anti DNA, ASMA) Subjective Allergies: Coded Allergies: CODEINE (Verified Allergy, Unknown, HIVES, 09/15/09) Subjective above noted d/w RN had one episode of regurgitation of food after GT meds advised RN that all elixer meds can be given via J port Objective Last 24 Hour Vital Signs Date Time Temp Pulse Resp B/P (MAP) Pulse Ox O2 Delivery O2 Flow Rate FiO2 05/12/19 20:00 T-piece 5.0 T-piece 5.0 T-piece 5.0 T-piece 5.0 05/12/19 20:00 98 22 121/60 (80) 99 05/12/19 20:00 5.0 28 05/12/19 19:41 99 T-Piece 5.0 28 05/12/19 19:41 99 22 100 T-Piece 5.0 28 99 20 99 05/12/19 19:31 99 05/12/19 19:00 97 19 128/63 (84) 100 05/12/19 18:00 95 19 143/69 (93) 99 05/12/19 17:00 94 19 140/66 (90) 100 05/12/19 16:00 T-piece 5.0 T-piece 5.0 T-piece 5.0 T-piece 5.0 05/12/19 16:00 5.0 28 05/12/19 16:00 94 05/12/19 16:00 98.3 95 20 148/71 (96) 99 05/12/19 15:31 94 17 100 T-Piece 5.0 28 94 20 97 05/12/19 15:00 97 21 134/72 (92) 97 05/12/19 14:00 103 21 131/61 (84) 100 05/12/19 13:21 100 T-Piece 5.0 28 05/12/19 13:00 102 24 124/56 (78) 100 05/12/19 12:00 98.3 103 20 144/55 (84) 100 05/12/19 12:00 T-piece 5.0 T-piece 5.0 T-piece 5.0 T-piece 5.0 05/12/19 12:00 103 05/12/19 12:00 5.0 28 05/12/19 11:54 99 20 100 T-Piece 5.0 28 103 21 100 05/12/19 11:00 70 19 152/73 (99) 100 05/12/19 10:00 97 21 165/71 (102) 100 05/12/19 09:00 95 20 149/66 (93) 100 05/12/19 08:00 97 20 118/90 (99) 100 05/12/19 08:00 5.0 28 05/12/19 08:00 100 05/12/19 08:00 T-piece 5.0 T-piece 5.0 T-piece 5.0 T-piece 5.0 05/12/19 07:22 99 T-Piece 5.0 28 05/12/19 07:22 101 22 100 T-Piece 5.0 28 99 21 99 05/12/19 07:00 98.5 96 20 141/71 (94) 100 05/12/19 06:00 104 20 143/58 (86) 100 05/12/19 05:00 92 20 144/62 (89) 100 05/12/19 04:00 95 05/12/19 04:00 T-piece 5.0 T-piece 5.0 T-piece 5.0 T-piece 5.0 05/12/19 04:00 5.0 28 05/12/19 04:00 92 19 130/100 (110) 100 05/12/19 03:13 99 22 100 T-Piece 5.0 28 05/12/19 03:03 97 21 100 T-Piece 5.0 28 05/12/19 03:00 97 19 132/59 (83) 100 05/12/19 02:00 98.5 99 19 138/60 (86) 99 05/12/19 01:00 113 20 137/62 (87) 98 05/12/19 00:45 99 T-Piece 5.0 28 05/12/19 00:30 117 21 141/60 (87) 98 05/12/19 00:08 172/75 05/12/19 00:00 T-piece 5.0 T-piece 5.0 T-piece 5.0 T-piece 5.0 05/12/19 00:00 107 05/12/19 00:00 102 22 172/75 (107) 99 05/12/19 00:00 5.0 28 05/11/19 23:29 91 20 100 T-Piece 5.0 28 96 22 98 05/11/19 23:00 93 21 161/73 (102) 100 05/11/19 22:00 89 17 142/65 (90) 100 05/11/19 21:00 88 20 156/73 (100) 99 Intake and Output 05/11/19 05/12/19 19:00 07:00 Intake Total 2470 ml 3280 ml Balance 2470 ml 3280 ml Free Water 300 ml 150 ml IV Total 1000 ml 2160 ml Tube Feeding 720 ml 720 ml Other 450 ml 250 ml Laboratory Tests 05/12/19 05:30: White Blood Count 16.0H, Red Blood Count 3.26L, Hemoglobin 9.5L, Hematocrit 28.6L, Mean Corpuscular Volume 88, Mean Corpuscular Hemoglobin 29.0, Mean Corpuscular Hemoglobin Concent 33.1, Red Cell Distribution Width 15.0H, Platelet Count 193, Mean Platelet Volume 6.7, Neutrophils (%) (Auto) 68.1, Lymphocytes (%) (Auto) 22.0, Monocytes (%) (Auto) 7.3, Eosinophils (%) (Auto) 2.1, Basophils (%) (Auto) 0.5, Sodium Level 141, Potassium Level 3.7, Chloride Level 105, Carbon Dioxide Level 27, Anion Gap 9, Blood Urea Nitrogen 38H, Creatinine 0.7, Estimat Glomerular Filtration Rate , Glucose Level 170H, Calcium Level 8.9, Total Bilirubin 0.2, Aspartate Amino Transf (AST/SGOT) 40H, Alanine Aminotransferase (ALT/SGPT) 188H, Alkaline Phosphatase 219H, Total Protein 7.4, Albumin 2.2L, Globulin 5.2, Albumin/Globulin Ratio 0.4L Height (Feet): 5 Height (Inches): 3.00 Weight (Pounds): 130 Objective Debilitated AA woman non-verbal, obtunded NCAT (+) trach coarse BS RR obese abd, (+) GJT no edema (+) contractured extremities Celio Vaughan MD May 12, 2019 20:49
--- NOTE | 2019-05-12 21:34 | NUR ---
NURSE NOTES: Medications given as ordered, turned and repositioned patient, J-tube feeding changed with new bottle of Vital AF at 60cc/hr, no residuals noted. Patient showing no signs of distress. Will continue to monitor.
[2019-05-13] VITALS (24 sets, daily range): BP systolic 117–160; BP diastolic 51–92
--- NOTE | 2019-05-13 00:01 | Progress Note ---
DATE: 05/11/2019 CARDIOLOGY PROGRESS NOTE Late entry for 05/11/2019. SUBJECTIVE: The patient remains on ventilator support. IV fluids ongoing. Nutrition by G-tube. PHYSICAL EXAMINATION: VITAL SIGNS: Blood pressure 152/66, pulse 100, respirations 21. Afebrile. LUNGS: Bilateral breath sounds. CARDIAC: Regular rhythm and rate. Normal S1, S2. ABDOMEN: Soft. EXTREMITIES: Trace edema. SKIN: T-tube collar in place. G-tube site intact. Monitor sinus and sinus tachycardia. LABORATORY DATA: White count 13.5, hemoglobin 9.5. Sodium 145, potassium 4.5, BUN 52, and creatinine 0.7. IMPRESSION: 1. Respiratory failure. 2. Dehydration and hypernatremia, improving 3. Hyperchloremia, improving 4. Prerenal azotemia persisting 5. Transaminitis persisting. 6. Severe protein-calorie malnutrition. 7. Hypertensive heart disease. 8. Secondary sinus tachycardia. PLAN: 1. Free water replacement. 2. Respiratory hygiene. 3. T-tube collar. 4. Cautious hydration with hypotonic fluids. 5. PRN antihypertensive therapy and if persistingly elevated blood pressure range we may add additional long-acting drug. Bg Hagen M.D. DR: PHUONG JOB#: [id number] CC:
--- NOTE | 2019-05-13 00:15 | Progress Note ---
DATE: 05/12/2019 CARDIOLOGY PROGRESS NOTE SUBJECTIVE: The patient remains at baseline comatose state. Blood pressure parameters stable. No pressors for several days now. PHYSICAL EXAMINATION: VITAL SIGNS: Blood pressure 121/60, pulse 98, and respirations 22. LUNGS: Bilateral breath sounds. T-tube collar. Few rhonchi. CARDIAC: Regular rhythm and rate. Normal S1, S2. ABDOMEN: Soft. G-tube intact. EXTREMITIES: Trace edema. Monitor sinus and sinus tachycardia. IMPRESSION: 1. Respiratory failure. 2. Recovered shock due to sepsis. 3. Chronic encephalopathy. 4. Transaminitis. 5. Prerenal azotemia. 6. Recovered dehydration and hypernatremia. PLAN: 1. Respiratory therapy. 2. Fluid hydration. 3. Nutrition by feeding tube as tolerated. 4. PRN antihypertensives. 5. DVT prophylaxis. 6. Continue antiseizure therapy. 7. Follow up natriuretic peptide assay and adjust IV fluids accordingly. Bg Hagen M.D. DR: PHUONG JOB#: [id number] CC:
--- NOTE | 2019-05-13 00:39 | NUR ---
NURSE NOTES: Patient is resting comfortably in bed, no signs of acute distress. Will continue to monitor.
[2019-05-13] MEDS: Albuterol/Ipratropium 3ml neb HHN SCH ×6 (03:39→23:51)
--- NOTE | 2019-05-13 05:10 | NUR ---
NURSE NOTES: Bed bath given to patient, patient tolerated well, no signs of acute distress.
[2019-05-13 06:58] LABS: BASOPHILS % (AUTO) 0.4 % (0.0-2.0); EOSINOPHILS % (AUTO) 1.2 % (0.0-3.0); HEMATOCRIT 29.1 % (37.0-47.0); HEMOGLOBIN 9.7 G/DL (12.0-16.0); LYMPHOCYTES % (AUTO) 19.2 % (20.0-45.0); MEAN CORPUSCULAR VOLUME 87 FL (80-99); MONOCYTES % (AUTO) 4.2 % (1.0-10.0); NEUTROPHILS % (AUTO) 74.9 % (45.0-75.0); PLATELET COUNT 187 K/UL (150-450); RED BLOOD COUNT 3.37 M/UL (4.20-5.40); RED CELL DISTRIBUTION WIDTH 15.2 % (11.6-14.8); WHITE BLOOD COUNT 15.5 K/UL (4.8-10.8)
--- NOTE | 2019-05-13 07:14 | NUR ---
HAND-OFF: Report given to Jennifer PAEZ.
[2019-05-13 07:21] LABS: ALANINE AMINOTRANSFERASE 136 U/L (12-78); ALBUMIN 2.1 G/DL (3.4-5.0); ALBUMIN/GLOBULIN RATIO 0.4 (1.0-2.7); ALKALINE PHOSPHATASE 190 U/L (46-116); ANION GAP 7 mmol/L (5-15); ASPARTATE AMINO TRANSFERASE 28 U/L (15-37); BILIRUBIN,TOTAL 0.2 MG/DL (0.2-1.0); BLOOD UREA NITROGEN 29 mg/dL (7-18); CALCIUM 8.7 MG/DL (8.5-10.1); CARBON DIOXIDE 28 MMOL/L (21-32); CHLORIDE 102 MMOL/L (98-107); CREATININE 0.8 MG/DL (0.55-1.30); POTASSIUM 3.9 MMOL/L (3.5-5.1); SODIUM 137 MMOL/L (136-145)
--- NOTE | 2019-05-13 08:00 | NUR ---
NURSE NOTES: Received change of shift report from Marcelo RN. Pt has eyes closed, opens eyes to touch, withdraws to pain, does not follow commands. Pt has trach, Shiley 6, XLT connected to Tpiece at 28% FIO2 at 100% O2Sat with bilateral inspiratory and expiratory rhonchi noted on auscultation. NSR on environmental monitoring specialist, HR 80. Pt has GJ-tube. JT is connected to Vital AF 1.2 at goal rate of 60ml. GT is connected to gravity, with small output of yellow liquid. Pt is tolerating feeding well with no noted residual. Abdomen is large, round, soft, nontender to touch with hypoactive bowel sounds. Right upper chest peripheral IV access #24G, with IV fluid D5NS at 60ml/hour. External urinary catheter is in place, draining clear/yellow urine. Skin has left hand wound, covered with dressing, dry/intact. Pt is on P200 pressure releasing mattress with bilateral heels/elevated, floating/off heels. Will continue with plan of care.
--- NOTE | 2019-05-13 10:00 | NUR ---
NURSE NOTES: AM meds were administered. Pt was seen by Dr Cortez. Order is noted for Mag replacement. Pt will be administered 4gm Mag today. VS remain stable. Oral care was done, pt was suctioned. Pt had x1 episode of brown/sputum/vomit, which was reported to Dr Vaughan. Per , G-port is now connected to low intermittent suction.
[2019-05-13] MEDS: D5W IV SCH ×2 (10:27→21:08)
[2019-05-13] MEDS: Sorbitol Solution UD 30ml GT SCH (10:27)
[2019-05-13] MEDS: Meropenem 1gm/NS 110ml IVPB SCH ×4 (10:27→22:47)
[2019-05-13] MEDS: POLYMYXIN B SULFATE IV SCH ×2 (10:27→21:08)
[2019-05-13] MEDS: Linezolid 600mg/300mL Premix IVPB SCH ×2 (10:27→23:26)
[2019-05-13] MEDS: levETIRAcetam 500mg/5ml Liquid GT SCH ×2 (10:28→21:08)
[2019-05-13] MEDS: Heparin 5000 units/ml inj SUBQ SCH ×2 (10:30→21:10)
--- NOTE | 2019-05-13 10:36 | Infectious Diseases Prog Note ---
"Assessment/Plan Assessment/Plan antibiotics : linezolid, meropenem, polymyxin 2.10.20 - A 1. proteus | pseudomonas | providencia pneumonia 2. klebsiella sepsis s/p catheter removal 3. respiratory failure 4. hypertension 5. CVA 6. dementia 7. rectal VRE colonization 8. leucocytosis improving 9. shock 10. VRE UTI P 1. continue linezolid 4 more days 2. continue meropenem, polymyxin 4 more days 3, blood culture 4. will follow up cultures Subjective ROS Limited/Unobtainable: Yes Allergies: Coded Allergies: CODEINE (Verified Allergy, Unknown, HIVES, 09/15/09) Objective Vital Signs Last 24 Hour Vital Signs Date Time Temp Pulse Resp B/P (MAP) Pulse Ox O2 Delivery O2 Flow Rate FiO2 05/13/19 07:28 100 T-Piece 5.0 28 05/13/19 07:26 102 19 100 T-Piece 5.0 28 101 17 100 05/13/19 07:00 97 20 133/65 (87) 100 05/13/19 06:00 96 21 144/57 (86) 100 05/13/19 05:00 102 22 128/62 (84) 100 05/13/19 04:00 5.0 28 05/13/19 04:00 98.2 98 20 130/60 (83) 100 05/13/19 04:00 T-piece 5.0 T-piece 5.0 T-piece 5.0 T-piece 5.0 05/13/19 03:38 94 20 100 T-Piece 5.0 28 99 20 100 05/13/19 03:06 95 05/13/19 03:00 98 21 137/57 (83) 100 05/13/19 02:00 99 20 133/63 (86) 100 05/13/19 01:18 99 T-Piece 5.0 28 05/13/19 01:00 96 21 136/62 (86) 100 05/13/19 00:00 5.0 28 05/13/19 00:00 97.7 97 19 147/69 (95) 100 05/13/19 00:00 T-piece 5.0 T-piece 5.0 T-piece 5.0 T-piece 5.0 05/12/19 23:24 94 20 100 T-Piece 5.0 28 98 21 100 05/12/19 23:03 94 05/12/19 23:00 96 21 145/67 (93) 100 05/12/19 22:00 98.0 102 24 130/66 (87) 100 05/12/19 21:00 95 22 139/63 (88) 100 05/12/19 20:00 T-piece 5.0 T-piece 5.0 T-piece 5.0 T-piece 5.0 05/12/19 20:00 98 22 121/60 (80) 99 05/12/19 20:00 5.0 28 05/12/19 19:41 99 T-Piece 5.0 28 05/12/19 19:41 99 22 100 T-Piece 5.0 28 99 20 99 05/12/19 19:31 99 05/12/19 19:00 97 19 128/63 (84) 100 05/12/19 18:00 95 19 143/69 (93) 99 05/12/19 17:00 94 19 140/66 (90) 100 05/12/19 16:00 T-piece 5.0 T-piece 5.0 T-piece 5.0 T-piece 5.0 05/12/19 16:00 5.0 28 05/12/19 16:00 94 05/12/19 16:00 98.3 95 20 148/71 (96) 99 05/12/19 15:31 94 17 100 T-Piece 5.0 28 94 20 97 05/12/19 15:00 97 21 134/72 (92) 97 05/12/19 14:00 103 21 131/61 (84) 100 05/12/19 13:21 100 T-Piece 5.0 28 05/12/19 13:00 102 24 124/56 (78) 100 05/12/19 12:00 98.3 103 20 144/55 (84) 100 05/12/19 12:00 T-piece 5.0 T-piece 5.0 T-piece 5.0 T-piece 5.0 05/12/19 12:00 103 05/12/19 12:00 5.0 28 05/12/19 11:54 99 20 100 T-Piece 5.0 28 103 21 100 05/12/19 11:00 70 19 152/73 (99) 100 Height (Feet): 5 Height (Inches): 3.00 Weight (Pounds): 131 HEENT: status post trach Respiratory/Chest: crackles/rales, rhonchi - bilaterally Cardiovascular: normal rate, regular rhythm, no gallop/murmur Abdomen: soft, non tender, other - GT Extremities: no edema Laboratory Tests Test 05/13/19 05:52 White Blood Count 15.5 K/UL (4.8-10.8) H Red Blood Count 3.37 M/UL (4.20-5.40) L Hemoglobin 9.7 G/DL (12.0-16.0) L Hematocrit 29.1 % (37.0-47.0) L Mean Corpuscular Volume 87 FL (80-99) Mean Corpuscular Hemoglobin 28.8 PG (27.0-31.0) Mean Corpuscular Hemoglobin Concent 33.2 G/DL (32.0-36.0) Red Cell Distribution Width 15.2 % (11.6-14.8) H Platelet Count 187 K/UL (150-450) Mean Platelet Volume 5.7 FL (6.5-10.1) L Neutrophils (%) (Auto) 74.9 % (45.0-75.0) Lymphocytes (%) (Auto) 19.2 % (20.0-45.0) L Monocytes (%) (Auto) 4.2 % (1.0-10.0) Eosinophils (%) (Auto) 1.2 % (0.0-3.0) Basophils (%) (Auto) 0.4 % (0.0-2.0) Sodium Level 137 MMOL/L (136-145) Potassium Level 3.9 MMOL/L (3.5-5.1) Chloride Level 102 MMOL/L (98-107) Carbon Dioxide Level 28 MMOL/L (21-32) Anion Gap 7 mmol/L (5-15) Blood Urea Nitrogen 29 mg/dL (7-18) H Creatinine 0.8 MG/DL (0.55-1.30) Estimat Glomerular Filtration Rate > 60 mL/min (>60) Glucose Level 168 MG/DL (74-106) H Calcium Level 8.7 MG/DL (8.5-10.1) Magnesium Level 1.2 MG/DL (1.8-2.4) L Total Bilirubin 0.2 MG/DL (0.2-1.0) Aspartate Amino Transf (AST/SGOT) 28 U/L (15-37) Alanine Aminotransferase (ALT/SGPT) 136 U/L (12-78) H Alkaline Phosphatase 190 U/L (46-116) H Pro-B-Type Natriuretic Peptide 767 pg/mL (0-125) H Total Protein 7.2 G/DL (6.4-8.2) Albumin 2.1 G/DL (3.4-5.0) L Globulin 5.1 g/dL Albumin/Globulin Ratio 0.4 (1.0-2.7) L Current Medications Medications (Trade) Dose Ordered Sig/Maicol Route PRN Reason Start Time Stop Time Status Last Admin Dose Admin Acetaminophen (Tylenol) 650 mg Q4H PRN RECTAL T>100.5 / Mild Pain 05/07/19 09:45 06/06/19 09:44 05/07/19 10:13 Albuterol/ Ipratropium (Albuterol/ Ipratropium) 3 ml Q4HRT HHN 05/10/19 19:00 05/15/19 18:59 05/13/19 07:28 Atropine Sulfate (Atropine Opth Adriana) 1 drop Q6HR SL 05/11/19 00:00 06/10/19 08:59 05/13/19 06:11 Dextrose/Sodium Chloride 1,000 ml @ 60 mls/hr [id number] IV 05/13/19 20:15 06/12/19 20:14 Heparin Sodium (Porcine) (Heparin 5000 units/ml) 5,000 units EVERY 12 HOURS SUBQ 05/01/19 21:00 05/31/19 20:59 05/13/19 10:30 Hydralazine HCl (Apresoline) 10 mg Q4H PRN IV For High Blood Pressure 05/11/19 05:45 06/10/19 05:44 05/12/19 00:08 Levetiracetam (Keppra) 500 mg Q12HR GT 05/01/19 21:00 05/28/19 08:59 05/13/19 10:28 Linezolid 300 ml @ 300 mls/hr Q12HR@1000,2200 IVPB 05/11/19 12:00 05/18/19 11:59 05/13/19 10:27 Magnesium Sulfate 100 ml @ 100 mls/hr Q1H IVPB 05/13/19 09:00 05/13/19 12:59 05/13/19 10:27 Meropenem 1 gm/ Sodium Chloride 110 ml @ 220 mls/hr Q12HR@1000,2200 IVPB 05/11/19 12:00 05/16/19 11:59 05/13/19 10:27 Polymyxin B Sulfate 905951 units/Dextrose 550 ml @ 550 mls/hr Q12HR IV 05/11/19 13:00 05/18/19 12:59 05/13/19 10:27 Sorbitol (Sorbitol) 30 ml BIDPRN PRN ORAL Constipation 04/13/19 11:15 05/13/19 11:14 Sorbitol (sorbitoL) 30 ml DAILY GT 04/14/19 09:00 05/14/19 08:59 05/13/19 10:27 Geovany Yang MD May 13, 2019 10:36"
--- NOTE | 2019-05-13 11:00 | NUR ---
RD ASSESSMENT & RECOMMENDATIONS SEE CARE ACTIVITY FOR COMPLETE ASSESSMENT DAILY ESTIMATED NEEDS: Needs based on Pulmonary, wounds, bedbound/ 61kg adj 25-30 kcals/kg 7248-4784 total kcals 1.25-2 g protein/kg 76-122 g total protein 25-30 mL/kg 3682-0524 total fluid mLs NUTRITION DIAGNOSIS: * Increased kcal/prot needs R/T wound healing as evidenced by BL buttocks and sacral wound photos, refer to WC eval-> wounds resolving, sacrum healed. * Swallowing difficulty R/T respiratory status as evidenced by pt on T-collar, s/p G-J conversion ENTERAL NUTRITION RECOMMENDATIONS: VITAL AF 1.2 @ 60ml/hr x 24 hrs to provide 1440ml, 1728kcal, 108g prot, 1167ml free water - Maintain current TF as tolerated-> meets 100% est needs - HOB over 30 degrees - Rec to increase water flushes ADDITIONAL RECOMMENDATIONS: 1) Maintain calibrated bedscale wt: fluctuating daily wts 2) Wound healing: maintain Cristian BID for skin integrity 3) Rec NISS for improved BG control -> Rec increasing water flushes vs D5 IVF for BG control 4) Monitor for continued good TF tolerance 5) Monitor HD stability: NE held .
--- NOTE | 2019-05-13 11:15 | Nephrology Progress Note ---
Assessment/Plan Problem List: (1) Acute renal failure (ARF) Assessment: Cr stable (2) Chronic respiratory failure (3) Anemia (4) Sepsis Assessment Acute renal failure Respiratory failure - Trach Low Mag- Low k , Low Na Anemia UTI / Sepsis Proteinuria / HypoAlbuminemia high Trigs Sz decubs bed bound DNR Plan Mag IV today Transfused 05/09 now has JT bolus Albumin as needed K and Mag and Phos supplement as needed Hydrate as needed Urine studies avoid Nephrotoxics mag K Phos supplements as needed monitor renal parameters Subjective ROS Limited/Unobtainable: Yes Objective Objective Last 24 Hour Vital Signs Date Time Temp Pulse Resp B/P (MAP) Pulse Ox O2 Delivery O2 Flow Rate FiO2 05/13/19 07:28 100 T-Piece 5.0 28 05/13/19 07:26 102 19 100 T-Piece 5.0 28 101 17 100 05/13/19 07:00 97 20 133/65 (87) 100 05/13/19 06:00 96 21 144/57 (86) 100 05/13/19 05:00 102 22 128/62 (84) 100 05/13/19 04:00 5.0 28 05/13/19 04:00 98.2 98 20 130/60 (83) 100 05/13/19 04:00 T-piece 5.0 T-piece 5.0 T-piece 5.0 T-piece 5.0 05/13/19 03:38 94 20 100 T-Piece 5.0 28 99 20 100 05/13/19 03:06 95 05/13/19 03:00 98 21 137/57 (83) 100 05/13/19 02:00 99 20 133/63 (86) 100 05/13/19 01:18 99 T-Piece 5.0 28 05/13/19 01:00 96 21 136/62 (86) 100 05/13/19 00:00 5.0 28 05/13/19 00:00 97.7 97 19 147/69 (95) 100 05/13/19 00:00 T-piece 5.0 T-piece 5.0 T-piece 5.0 T-piece 5.0 05/12/19 23:24 94 20 100 T-Piece 5.0 28 98 21 100 05/12/19 23:03 94 05/12/19 23:00 96 21 145/67 (93) 100 05/12/19 22:00 98.0 102 24 130/66 (87) 100 05/12/19 21:00 95 22 139/63 (88) 100 05/12/19 20:00 T-piece 5.0 T-piece 5.0 T-piece 5.0 T-piece 5.0 05/12/19 20:00 98 22 121/60 (80) 99 05/12/19 20:00 5.0 28 05/12/19 19:41 99 T-Piece 5.0 28 05/12/19 19:41 99 22 100 T-Piece 5.0 28 99 20 99 05/12/19 19:31 99 05/12/19 19:00 97 19 128/63 (84) 100 05/12/19 18:00 95 19 143/69 (93) 99 05/12/19 17:00 94 19 140/66 (90) 100 05/12/19 16:00 T-piece 5.0 T-piece 5.0 T-piece 5.0 T-piece 5.0 05/12/19 16:00 5.0 28 05/12/19 16:00 94 05/12/19 16:00 98.3 95 20 148/71 (96) 99 05/12/19 15:31 94 17 100 T-Piece 5.0 28 94 20 97 05/12/19 15:00 97 21 134/72 (92) 97 05/12/19 14:00 103 21 131/61 (84) 100 05/12/19 13:21 100 T-Piece 5.0 28 05/12/19 13:00 102 24 124/56 (78) 100 05/12/19 12:00 98.3 103 20 144/55 (84) 100 05/12/19 12:00 T-piece 5.0 T-piece 5.0 T-piece 5.0 T-piece 5.0 05/12/19 12:00 103 05/12/19 12:00 5.0 28 05/12/19 11:54 99 20 100 T-Piece 5.0 28 103 21 100 Intake and Output 05/12/19 05/13/19 19:00 07:00 Intake Total 2910 ml 2468.333 ml Output Total 600 ml Balance 2910 ml 1868.333 ml Free Water 120 ml 50 ml IV Total 2070 ml 1698.333 ml Tube Feeding 720 ml 720 ml Output Urine Total 600 ml Laboratory Tests 05/13/19 05:52: White Blood Count 15.5H, Red Blood Count 3.37L, Hemoglobin 9.7L, Hematocrit 29.1L, Mean Corpuscular Volume 87, Mean Corpuscular Hemoglobin 28.8, Mean Corpuscular Hemoglobin Concent 33.2, Red Cell Distribution Width 15.2H, Platelet Count 187, Mean Platelet Volume 5.7L, Neutrophils (%) (Auto) 74.9, Lymphocytes (%) (Auto) 19.2L, Monocytes (%) (Auto) 4.2, Eosinophils (%) (Auto) 1.2, Basophils (%) (Auto) 0.4, Sodium Level 137, Potassium Level 3.9, Chloride Level 102, Carbon Dioxide Level 28, Anion Gap 7, Blood Urea Nitrogen 29H, Creatinine 0.8, Estimat Glomerular Filtration Rate > 60, Glucose Level 168H, Calcium Level 8.7, Magnesium Level 1.2L, Total Bilirubin 0.2, Aspartate Amino Transf (AST/SGOT) 28, Alanine Aminotransferase (ALT/SGPT) 136H, Alkaline Phosphatase 190H, Pro-B-Type Natriuretic Peptide 767H, Total Protein 7.2, Albumin 2.1L, Globulin 5.1, Albumin/Globulin Ratio 0.4L Height (Feet): 5 Height (Inches): 3.00 Weight (Pounds): 131 General Appearance: no apparent distress EENT: other - trach- O2 Cardiovascular: tachycardia Respiratory/Chest: decreased breath sounds Abdomen: soft Objective no change Eric Cortez MD May 13, 2019 11:15
[2019-05-13] MEDS ORDERED: D5NS 1000ml IV ONE (13:50)
[2019-05-13] MEDS ORDERED: Tubing IV Secondary IV ONE (13:50)
--- NOTE | 2019-05-13 14:00 | NUR ---
NURSE NOTES: VS remains stable. Pt was suctioned. Feeding bag was replaced. Pt was repositioned. Pt was visited by her daughter at bedside. Pt is resting in no apparent distress.
--- NOTE | 2019-05-13 16:00 | NUR ---
NURSE NOTES: Pt has noticeably less secretions after the administration of Atropine SL drops. Pt was repositioned, and remains with stable VS and in no apparent distress.
--- NOTE | 2019-05-13 18:00 | NUR ---
NURSE NOTES: Pt was cleaned, gown/bed linens were changed. Pt was suctioned. VS remain stable. Gport remains connected to low intermittent suction with output of brown/liquid.
--- NOTE | 2019-05-13 18:41 | Pulmonolgy Critical Care Note ---
Critical Care - Asmt/Plan Assessment/Plan: Pulmonary CCM Progress Note Assessment/Plan Impression: history of Sepsis history of Pneumonia Trach, G tube, Hypertension, Cardiac disease, Dementia, Previous CVA, Seizure disorder, Respiratory failure with hypoxia Anemia, Sacral ulcer renal cyst chronic pulmonary congestion Plan continue with respiratory care monitor protein levels and adjust monitor imaging per review likely chronic monitor labs and reflux aspiration abdominal xray reviewed elevate head and monitor secretions DNR. No CPR. ICU care reviewed meds noted and updated; neb therapy off load as able nutrition/fees/ dietary as is; monitor residuals skin care difficulty with placement all changes noted and discussed chronic management as able medications/laboratory data/nursing notes/ICU care reviewed in detail note reviewed and edited care discussed with RN and RT Objective Vital Signs Noted Objective WDWN NAD contracted off vent reduced breath sounds bilaterally with some rhonchi; no wheeze [id number] without MRG NABS nontender no HSM no CC minimal nonfocal nonverbal trach and gt reviewed and edited Laboratory Tests Noted Critical Care - Objective Last 24 Hour Vital Signs Date Time Temp Pulse Resp B/P (MAP) Pulse Ox O2 Delivery O2 Flow Rate FiO2 05/13/19 17:00 97.0 100 21 139/61 (87) 99 05/13/19 16:00 99 21 143/65 (91) 99 05/13/19 16:00 5.0 28 05/13/19 16:00 100 05/13/19 16:00 T-piece 5.0 T-piece 5.0 T-piece 5.0 T-piece 5.0 05/13/19 15:06 96 22 100 T-Piece 5.0 28 98 20 100 05/13/19 15:00 98 19 128/67 (87) 100 05/13/19 14:00 101 22 134/61 (85) 98 05/13/19 13:24 100 T-Piece 5.0 28 05/13/19 13:00 102 20 133/52 (79) 99 05/13/19 12:00 T-piece 5.0 T-piece 5.0 T-piece 5.0 T-piece 5.0 05/13/19 12:00 107 05/13/19 12:00 102 19 145/61 (89) 99 05/13/19 12:00 5.0 28 05/13/19 11:16 102 20 100 T-Piece 5.0 28 105 21 99 2/12/20 11:00 105 21 117/51 (73) 99 05/13/19 10:00 100 20 157/61 (93) 100 05/13/19 09:00 102 20 127/67 (87) 100 05/13/19 08:00 98.2 100 20 137/73 (94) 100 05/13/19 08:00 T-piece 5.0 T-piece 5.0 T-piece 5.0 T-piece 5.0 05/13/19 08:00 100 05/13/19 08:00 5.0 28 05/13/19 07:28 100 T-Piece 5.0 28 05/13/19 07:26 102 19 100 T-Piece 5.0 28 101 17 100 05/13/19 07:00 97 20 133/65 (87) 100 05/13/19 06:00 96 21 144/57 (86) 100 05/13/19 05:00 102 22 128/62 (84) 100 05/13/19 04:00 5.0 28 05/13/19 04:00 98.2 98 20 130/60 (83) 100 05/13/19 04:00 T-piece 5.0 T-piece 5.0 T-piece 5.0 T-piece 5.0 05/13/19 03:38 94 20 100 T-Piece 5.0 28 99 20 100 05/13/19 03:06 95 05/13/19 03:00 98 21 137/57 (83) 100 05/13/19 02:00 99 20 133/63 (86) 100 05/13/19 01:18 99 T-Piece 5.0 28 05/13/19 01:00 96 21 136/62 (86) 100 05/13/19 00:00 5.0 28 05/13/19 00:00 97.7 97 19 147/69 (95) 100 05/13/19 00:00 T-piece 5.0 T-piece 5.0 T-piece 5.0 T-piece 5.0 05/12/19 23:24 94 20 100 T-Piece 5.0 28 98 21 100 05/12/19 23:03 94 05/12/19 23:00 96 21 145/67 (93) 100 05/12/19 22:00 98.0 102 24 130/66 (87) 100 05/12/19 21:00 95 22 139/63 (88) 100 05/12/19 20:00 T-piece 5.0 T-piece 5.0 T-piece 5.0 T-piece 5.0 05/12/19 20:00 98 22 121/60 (80) 99 05/12/19 20:00 5.0 28 05/12/19 19:41 99 T-Piece 5.0 28 05/12/19 19:41 99 22 100 T-Piece 5.0 28 99 20 99 05/12/19 19:31 99 05/12/19 19:00 97 19 128/63 (84) 100 Accucheck: 110 Critical Care - Subjective ROS Limited/Unobtainable: No FI02: 28 Vent Support Mode: CPAP Vent Tidal Volume: 450 Sputum Amount: Small PEEP: 5.0 PIP: 19 Tube Feeding Amount: 60 I&O: Intake and Output 05/12/19 05/13/19 19:00 07:00 Intake Total 2910 ml 2468.333 ml Output Total 600 ml Balance 2910 ml 1868.333 ml Free Water 120 ml 50 ml IV Total 2070 ml 1698.333 ml Tube Feeding 720 ml 720 ml Output Urine Total 600 ml ET-Tube: 6.0 Bg Moffett MD May 13, 2019 18:41
--- NOTE | 2019-05-13 19:26 | NUR ---
RESPIRATORY NOTE: Received pt on 28% Cool Aerosol via T-Piece. Pt is trach-dependent w/ a cuffed, Shiley 6 XLT tube. Pt is awake, responds to stimuli. B/S flory. rhonchi, sxn small to moderate amounts of thick/thin/frothy, pale-yellow to boles-yellow secretions. [place] at bedside. Pt resting comfortably, in no apparent distress at this time. Will continue to monitor pt. Addendum: 05/13/19 at 1931 by CLAUDIA GUADALUPE RT Trach cuff is currently deflated.
--- NOTE | 2019-05-13 19:30 | NUR ---
NURSE NOTES: Received patient from JEANNINE Rodriguez. Patient received with eyes closed, but opens eyes to touch and withdraws to pain. Patient unable to follow commands. Patient has trach, Shiley 6, XLT connected to Tpiece at 28% FIO2 at 100% O2Sat with bilateral inspiratory and expiratory rhonchi noted in upper lobes. Pt has GJ-tube set to low intermittent suctioning with green secretions collected. JT is connected to Vital AF 1.2 at goal rate of 60ml. Pt is tolerating feeding well with no noted residual. Abdomen is large, round, soft, nontender to touch with hypoactive bowel sounds. Right upper chest peripheral IV access #24G, with IV fluid D5NS at 60ml/hour. External urinary catheter is in place, draining clear/yellow urine. Skin has left hand wound, covered with dressing that is clean, dry and intact. Pt is on P200 pressure releasing mattress with bilateral heels/elevated, floating/off heels. Will continue with plan of care.
--- NOTE | 2019-05-13 19:30 | NUR ---
HAND-OFF: Report given to Marcelo RN. Endorsed plan of care.
--- NOTE | 2019-05-13 19:30 | NUR ---
HAND-OFF: Report given to Markel PAEZ/Veda RN. VS remain stable. Endorsed plan of care.
[2019-05-13] MEDS ORDERED: D5NS 1,000 ML IV SCH (20:15)
--- NOTE | 2019-05-13 20:40 | General Progress Note ---
Assessment/Plan Problem List: (1) Seizure ICD Codes: R56.9 - Unspecified convulsions SNOMED: 00561446 (2) Anemia ICD Codes: D64.9 - Anemia, unspecified SNOMED: 216984837 Qualifiers: Qualified Codes: D64.9 - Anemia, unspecified (3) Sepsis ICD Codes: A41.9 - Sepsis, unspecified organism SNOMED: 15077484, 219798044 Qualifiers: Qualified Codes: A41.9 - Sepsis, unspecified organism (4) Respiratory failure with hypoxia ICD Codes: J96.91 - Respiratory failure, unspecified with hypoxia SNOMED: 13091174058364970 Qualifiers: Qualified Codes: J96.21 - Acute and chronic respiratory failure with hypoxia (5) HCAP (healthcare-associated pneumonia) ICD Codes: J18.9 - Pneumonia, unspecified organism SNOMED: 743662676, 049336469 (6) Sacral decubitus ulcer ICD Codes: L89.159 - Pressure ulcer of sacral region, unspecified stage SNOMED: 983647234 (7) HTN (hypertension) ICD Codes: I10 - Essential (primary) hypertension SNOMED: 87637773 (8) Chronic vegetative state ICD Codes: R40.3 - Persistent vegetative state SNOMED: 54500226 (9) Chronic respiratory failure ICD Codes: J96.10 - Chronic respiratory failure, unspecified whether with hypoxia or hypercapnia SNOMED: 39358541 (10) Limited mobility ICD Codes: Z74.09 - Other reduced mobility SNOMED: 0647427 Status: stable, progressing Assessment/Plan: follow up cultures iv abx per id ivf dcd monitor for bleeding vent as needed resp rx suctioning j tube feeds g port to gravity skin care sz rx bowel regime Subjective ROS Limited/Unobtainable: Yes Constitutional: Reports: malaise, weakness HEENT: Reports: no symptoms Cardiovascular: Reports: no symptoms Respiratory: Reports: cough, shortness of breath, sputum Gastrointestinal/Abdominal: Reports: difficulty swallowing Genitourinary: Reports: no symptoms Neurologic/Psychiatric: Reports: pre-existing deficit, seizure Endocrine: Reports: no symptoms Hematologic/Lymphatic: Reports: no symptoms Allergies: Coded Allergies: CODEINE (Verified Allergy, Unknown, HIVES, 09/15/09) All Systems: reviewed and negative except above Subjective no events. stable on the vent. no fever, no bleeding. on iv abx. Objective Last 24 Hour Vital Signs Date Time Temp Pulse Resp B/P (MAP) Pulse Ox O2 Delivery O2 Flow Rate FiO2 05/13/19 20:00 5.0 28 05/13/19 20:00 97.6 102 20 151/68 (95) 100 05/13/19 19:32 98 21 100 T-Piece 5.0 28 05/13/19 19:22 100 T-Piece 5.0 28 05/13/19 19:22 99 20 100 T-Piece 5.0 28 05/13/19 19:00 101 21 141/63 (89) 99 05/13/19 18:00 102 22 143/67 (92) 99 05/13/19 17:00 97.0 100 21 139/61 (87) 99 05/13/19 16:00 99 21 143/65 (91) 99 05/13/19 16:00 5.0 28 05/13/19 16:00 100 05/13/19 16:00 T-piece 5.0 T-piece 5.0 T-piece 5.0 T-piece 5.0 05/13/19 15:06 96 22 100 T-Piece 5.0 28 98 20 100 05/13/19 15:00 98 19 128/67 (87) 100 05/13/19 14:00 101 22 134/61 (85) 98 05/13/19 13:24 100 T-Piece 5.0 28 05/13/19 13:00 102 20 133/52 (79) 99 05/13/19 12:00 T-piece 5.0 T-piece 5.0 T-piece 5.0 T-piece 5.0 05/13/19 12:00 107 05/13/19 12:00 102 19 145/61 (89) 99 05/13/19 12:00 5.0 28 05/13/19 11:16 102 20 100 T-Piece 5.0 28 105 21 99 05/13/19 11:00 105 21 117/51 (73) 99 05/13/19 10:00 100 20 157/61 (93) 100 05/13/19 09:00 102 20 127/67 (87) 100 05/13/19 08:00 98.2 100 20 137/73 (94) 100 05/13/19 08:00 T-piece 5.0 T-piece 5.0 T-piece 5.0 T-piece 5.0 05/13/19 08:00 100 05/13/19 08:00 5.0 28 05/13/19 07:28 100 T-Piece 5.0 28 05/13/19 07:26 102 19 100 T-Piece 5.0 28 101 17 100 05/13/19 07:00 97 20 133/65 (87) 100 05/13/19 06:00 96 21 144/57 (86) 100 05/13/19 05:00 102 22 128/62 (84) 100 05/13/19 04:00 5.0 28 05/13/19 04:00 98.2 98 20 130/60 (83) 100 05/13/19 04:00 T-piece 5.0 T-piece 5.0 T-piece 5.0 T-piece 5.0 05/13/19 03:38 94 20 100 T-Piece 5.0 28 99 20 100 05/13/19 03:06 95 05/13/19 03:00 98 21 137/57 (83) 100 05/13/19 02:00 99 20 133/63 (86) 100 05/13/19 01:18 99 T-Piece 5.0 28 05/13/19 01:00 96 21 136/62 (86) 100 05/13/19 00:00 5.0 28 05/13/19 00:00 97.7 97 19 147/69 (95) 100 05/13/19 00:00 T-piece 5.0 T-piece 5.0 T-piece 5.0 T-piece 5.0 05/12/19 23:24 94 20 100 T-Piece 5.0 28 98 21 100 05/12/19 23:03 94 05/12/19 23:00 96 21 145/67 (93) 100 05/12/19 22:00 98.0 102 24 130/66 (87) 100 05/12/19 21:00 95 22 139/63 (88) 100 Intake and Output 05/12/19 05/13/19 19:00 07:00 Intake Total 2910 ml 2468.333 ml Output Total 600 ml Balance 2910 ml 1868.333 ml Free Water 120 ml 50 ml IV Total 2070 ml 1698.333 ml Tube Feeding 720 ml 720 ml Output Urine Total 600 ml Laboratory Tests 05/13/19 05:52: White Blood Count 15.5H, Red Blood Count 3.37L, Hemoglobin 9.7L, Hematocrit 29.1L, Mean Corpuscular Volume 87, Mean Corpuscular Hemoglobin 28.8, Mean Corpuscular Hemoglobin Concent 33.2, Red Cell Distribution Width 15.2H, Platelet Count 187, Mean Platelet Volume 5.7L, Neutrophils (%) (Auto) 74.9, Lymphocytes (%) (Auto) 19.2L, Monocytes (%) (Auto) 4.2, Eosinophils (%) (Auto) 1.2, Basophils (%) (Auto) 0.4, Sodium Level 137, Potassium Level 3.9, Chloride Level 102, Carbon Dioxide Level 28, Anion Gap 7, Blood Urea Nitrogen 29H, Creatinine 0.8, Estimat Glomerular Filtration Rate > 60, Glucose Level 168H, Calcium Level 8.7, Magnesium Level 1.2L, Total Bilirubin 0.2, Aspartate Amino Transf (AST/SGOT) 28, Alanine Aminotransferase (ALT/SGPT) 136H, Alkaline Phosphatase 190H, Pro-B-Type Natriuretic Peptide 767H, Total Protein 7.2, Albumin 2.1L, Globulin 5.1, Albumin/Globulin Ratio 0.4L Height (Feet): 5 Height (Inches): 3.00 Weight (Pounds): 131 Objective General Appearance: WD/WN, confused. on trach collar Neck: supple Cardiovascular: normal rate, regular rhythm Respiratory/Chest: chest wall non-tender, rhonchi - bilaterally(minimal) Abdomen: normal bowel sounds, non tender, soft, no organomegaly Edema: no edema noted Arm (L), no edema noted Arm (R), no edema noted Leg (L), no edema noted Leg (R), no edema noted Pedal (L), no edema noted Pedal (R), no edema noted Generalized Neurologic: disoriented, unresponsive, aphasia Irvin Beltrán MD May 13, 2019 20:40
--- NOTE | 2019-05-13 21:52 | General Progress Note ---
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 - Anemia with OB (-) stools - Resp failure, s/p Trach - dysphagia, s/p PEG --> GJ tube - OBS, vegetative obtunded unresponsive state, bedbound with contracted extremities, - h/o minor GJ tube site irritation - poor Prognosis Recommendations - Not candidate for immune suppression at this time - abx per ID - daily sorbitol, and PRN sorbitol - Cristian BID - antibiotic ointment to GJT site PRN - aspiration precautions - elevate HOB - Vital AF 1.2 - check q 6 hour FS - transfuse to keep Hg > 7 - J tube feeds - G tube ---> LIS - IVF - check ESR --> elevated - further evaluation for autoimmune hepatitis (anti DNA, ASMA) Subjective Allergies: Coded Allergies: CODEINE (Verified Allergy, Unknown, HIVES, 09/15/09) Subjective above noted d/w RN still noted to have occ small regurgitation of gastric contents after cough spells Objective Last 24 Hour Vital Signs Date Time Temp Pulse Resp B/P (MAP) Pulse Ox O2 Delivery O2 Flow Rate FiO2 05/13/19 20:00 5.0 28 05/13/19 20:00 97.6 102 20 151/68 (95) 100 05/13/19 19:32 98 21 100 T-Piece 5.0 28 05/13/19 19:22 100 T-Piece 5.0 28 05/13/19 19:22 99 20 100 T-Piece 5.0 28 05/13/19 19:00 101 21 141/63 (89) 99 05/13/19 18:00 102 22 143/67 (92) 99 05/13/19 17:00 97.0 100 21 139/61 (87) 99 05/13/19 16:00 99 21 143/65 (91) 99 05/13/19 16:00 5.0 28 05/13/19 16:00 100 05/13/19 16:00 T-piece 5.0 T-piece 5.0 T-piece 5.0 T-piece 5.0 05/13/19 15:06 96 22 100 T-Piece 5.0 28 98 20 100 05/13/19 15:00 98 19 128/67 (87) 100 05/13/19 14:00 101 22 134/61 (85) 98 05/13/19 13:24 100 T-Piece 5.0 28 05/13/19 13:00 102 20 133/52 (79) 99 05/13/19 12:00 T-piece 5.0 T-piece 5.0 T-piece 5.0 T-piece 5.0 05/13/19 12:00 107 05/13/19 12:00 102 19 145/61 (89) 99 05/13/19 12:00 5.0 28 05/13/19 11:16 102 20 100 T-Piece 5.0 28 105 21 99 05/13/19 11:00 105 21 117/51 (73) 99 05/13/19 10:00 100 20 157/61 (93) 100 05/13/19 09:00 102 20 127/67 (87) 100 05/13/19 08:00 98.2 100 20 137/73 (94) 100 05/13/19 08:00 T-piece 5.0 T-piece 5.0 T-piece 5.0 T-piece 5.0 05/13/19 08:00 100 05/13/19 08:00 5.0 28 05/13/19 07:28 100 T-Piece 5.0 28 05/13/19 07:26 102 19 100 T-Piece 5.0 28 101 17 100 05/13/19 07:00 97 20 133/65 (87) 100 05/13/19 06:00 96 21 144/57 (86) 100 05/13/19 05:00 102 22 128/62 (84) 100 05/13/19 04:00 5.0 28 05/13/19 04:00 98.2 98 20 130/60 (83) 100 05/13/19 04:00 T-piece 5.0 T-piece 5.0 T-piece 5.0 T-piece 5.0 05/13/19 03:38 94 20 100 T-Piece 5.0 28 99 20 100 05/13/19 03:06 95 05/13/19 03:00 98 21 137/57 (83) 100 05/13/19 02:00 99 20 133/63 (86) 100 05/13/19 01:18 99 T-Piece 5.0 28 05/13/19 01:00 96 21 136/62 (86) 100 05/13/19 00:00 5.0 28 05/13/19 00:00 97.7 97 19 147/69 (95) 100 05/13/19 00:00 T-piece 5.0 T-piece 5.0 T-piece 5.0 T-piece 5.0 05/12/19 23:24 94 20 100 T-Piece 5.0 28 98 21 100 05/12/19 23:03 94 05/12/19 23:00 96 21 145/67 (93) 100 05/12/19 22:00 98.0 102 24 130/66 (87) 100 Intake and Output 05/12/19 05/13/19 19:00 07:00 Intake Total 2910 ml 2468.333 ml Output Total 600 ml Balance 2910 ml 1868.333 ml Free Water 120 ml 50 ml IV Total 2070 ml 1698.333 ml Tube Feeding 720 ml 720 ml Output Urine Total 600 ml Laboratory Tests 05/13/19 05:52: White Blood Count 15.5H, Red Blood Count 3.37L, Hemoglobin 9.7L, Hematocrit 29.1L, Mean Corpuscular Volume 87, Mean Corpuscular Hemoglobin 28.8, Mean Corpuscular Hemoglobin Concent 33.2, Red Cell Distribution Width 15.2H, Platelet Count 187, Mean Platelet Volume 5.7L, Neutrophils (%) (Auto) 74.9, Lymphocytes (%) (Auto) 19.2L, Monocytes (%) (Auto) 4.2, Eosinophils (%) (Auto) 1.2, Basophils (%) (Auto) 0.4, Sodium Level 137, Potassium Level 3.9, Chloride Level 102, Carbon Dioxide Level 28, Anion Gap 7, Blood Urea Nitrogen 29H, Creatinine 0.8, Estimat Glomerular Filtration Rate > 60, Glucose Level 168H, Calcium Level 8.7, Magnesium Level 1.2L, Total Bilirubin 0.2, Aspartate Amino Transf (AST/SGOT) 28, Alanine Aminotransferase (ALT/SGPT) 136H, Alkaline Phosphatase 190H, Pro-B-Type Natriuretic Peptide 767H, Total Protein 7.2, Albumin 2.1L, Globulin 5.1, Albumin/Globulin Ratio 0.4L Height (Feet): 5 Height (Inches): 3.00 Weight (Pounds): 131 Objective Debilitated AA woman non-verbal, obtunded NCAT (+) trach coarse BS RR obese abd, (+) GJT no edema (+) contractured extremities Celio Vaughan MD May 13, 2019 21:52
--- NOTE | 2019-05-13 22:00 | NUR ---
NURSE NOTES: Patient with eyes open nonverbal tolerating trach with Tpiece, FiO2 at 28%, and oxygen saturation at 100%. Inspiratory and expiratory Rhonchi noted in bilateral upper lobes. Patient suctioned with thin clear oral secretions obtained. will continue to monitor.
--- NOTE | 2019-05-13 22:45 | Progress Note ---
DATE: 05/13/2019 CARDIOLOGY PROGRESS NOTE SUBJECTIVE: The patient remains on G-tube. No respiratory distress. OBJECTIVE: VITAL SIGNS: Blood pressure 151/68, pulse 102, respirations 20, afebrile. Monitor sinus and sinus tachycardia. LUNGS: Bilateral breath sounds. Few rhonchi. CARDIAC: Regular rhythm. Rapid rate. Normal S1, S2. ABDOMEN: Soft. GJ tube intact with trace dependent edema. LABORATORY AND DIAGNOSTIC DATA: Latest cultures of the blood revealed KPC with resistant pathogen and urine culture with VRE. White count 15.5, hemoglobin is 9.7. Potassium 3.9, BUN 29, creatinine 0.8, magnesium 1.2. Pro-natriuretic peptide 767. IMPRESSION: 1. Prerenal azotemia. 2. Hypovolemia, improving. 3. Hypomagnesemia, now with IV replacement therapy ordered. 4. Respiratory failure, on G-tube. 5. Acute on chronic diastolic congestive heart failure. 6. Secondary sinus tachycardia. 7. Sepsis, status post shock. PLAN: 1. Antimicrobials. 2. Respiratory hygiene. 3. IV magnesium. 4. Consider beta-martha therapy although the patient's daughter has refused these drugs in the past, we will try to discuss again. 5. Adjust IV fluid rate. Bg Hagen M.D. DR: KAREN JOB#: [id number] CC:
[2019-05-14] VITALS (26 sets, daily range): BP systolic 103–158; BP diastolic 48–76
--- NOTE | 2019-05-14 | NUR ---
NURSE NOTES: Patient asleep, opens eyes with light touch but nonverbal. patient tolerating trach with Tpiece and FiO2 at 28%. No residual obtained from Jtube. Gtube set to low intermittent suction. Abdomen soft round nontender with hypoactive bowel sounds. Rectal tube with small amount of loose light brown stool. will continue to monitor.
--- NOTE | 2019-05-14 03:15 | NUR ---
NURSE NOTES: Patient noted with dark brown oral secretions. Vital AF 1.2 Jtube feeding stopped. No residual obtained from Jtube. Gtube set to low intermittent suction. abdomen soft round nontender with hypoactive bowel sounds. Patient tolerating trach with tpiece and FiO2 28% and oxygen saturation at 100%. RT at bedside. will continue to monitor.
[2019-05-14] MEDS: Albuterol/Ipratropium 3ml neb HHN SCH ×6 (03:20→23:20)
--- NOTE | 2019-05-14 06:00 | NUR ---
NURSE NOTES: Patient with eyes open, nonverbal and unable to follow commands. Patient suctioned, with small amount of thin clear secretions obtained. No residual obtained from Jtube. Gtube set to low intermittent suction. Abdomen soft round nontender with hypoactive bowel sounds.
[2019-05-14 06:33] LABS: BASOPHILS % (AUTO) 0.4 % (0.0-2.0); EOSINOPHILS % (AUTO) 1.5 % (0.0-3.0); HEMATOCRIT 26.7 % (37.0-47.0); LYMPHOCYTES % (AUTO) 16.5 % (20.0-45.0); MEAN CORPUSCULAR VOLUME 87 FL (80-99); MONOCYTES % (AUTO) 5.2 % (1.0-10.0); NEUTROPHILS % (AUTO) 76.5 % (45.0-75.0); PLATELET COUNT 194 K/UL (150-450); RED BLOOD COUNT 3.07 M/UL (4.20-5.40); RED CELL DISTRIBUTION WIDTH 14.5 % (11.6-14.8); WHITE BLOOD COUNT 14.6 K/UL (4.8-10.8)
[2019-05-14 07:01] LABS: ALANINE AMINOTRANSFERASE 107 U/L (12-78); ALBUMIN 2.1 G/DL (3.4-5.0); ALBUMIN/GLOBULIN RATIO 0.4 (1.0-2.7); ALKALINE PHOSPHATASE 180 U/L (46-116); ANION GAP 7 mmol/L (5-15); ASPARTATE AMINO TRANSFERASE 27 U/L (15-37); BILIRUBIN,TOTAL 0.2 MG/DL (0.2-1.0); BLOOD UREA NITROGEN 26 mg/dL (7-18); CARBON DIOXIDE 29 MMOL/L (21-32); CHLORIDE 100 MMOL/L (98-107); CREATININE 0.7 MG/DL (0.55-1.30); PHOSPHORUS 2.7 MG/DL (2.5-4.9); SODIUM 136 MMOL/L (136-145)
--- NOTE | 2019-05-14 07:18 | NUR ---
HAND-OFF: Report given to JEANNINE Kruger.
--- NOTE | 2019-05-14 08:08 | NUR ---
NURSE NOTES: Report received from JEANNINE Deutsch and JEANNINE Jean Baptiste. Pt is lying in bed comfortably, showing no signs of distress. Pt is nonverbal, eyes open with tracking, no signs of pain or SOB. Respirations are even and unlabored on T-piece; shiley 6, 28% FiO2. Inspiratory and expiratory rhonchi noted bilaterally on auscultation. Pt is experiencing a lot of secretions with cough. Pt deep suctioned and orally suctioned. Oral care given. Pt O2 saturation 96%. Abdomen soft with G-tube set to low intermittent suction and pt receiving vital 1.2 @ 60 ml/hr via the J-tube. Medications to be administered only through the J-tube at this time per Dr. Vaughan. Head of bed @ 30 degrees. Heels and sacrum dressed in optifoam for skin protection, pt on p200 mattress. IV site intact and patent and running TKO. HR elevated @ 110. All other vital signs stable as documented. Bed at lowest position, brakes engaged, siderails x3, bed alarm on, and call light within reach. Pt in stable condition at this time; will continue to monitor. Addendum: 05/14/19 at 1746 by Saskia Morris RN correction: ABDOMEN FIRM
[2019-05-14] MEDS: POLYMYXIN B SULFATE IV SCH ×2 (09:14→21:10)
[2019-05-14] MEDS: D5W IV SCH ×2 (09:14→21:10)
[2019-05-14] MEDS: levETIRAcetam 500mg/5ml Liquid GT SCH ×2 (09:15→21:48)
[2019-05-14] MEDS: Heparin 5000 units/ml inj SUBQ SCH ×2 (09:17→21:16)
--- NOTE | 2019-05-14 10:06 | NUR ---
NURSE NOTES: Pt turned and repositioned. Pt suctioned and face cleaned. Vitals stable as documented.
--- NOTE | 2019-05-14 10:15 | Nephrology Progress Note ---
Assessment/Plan Problem List: (1) Acute renal failure (ARF) Assessment: Cr stable (2) Chronic respiratory failure (3) Anemia (4) Sepsis Assessment Acute renal failure Respiratory failure - Trach Low Mag- Low k , Low Na Anemia UTI / Sepsis Proteinuria / HypoAlbuminemia high Trigs Sz decubs bed bound DNR Plan Mag IV today Transfused 05/09 now has JT bolus Albumin as needed K and Mag and Phos supplement as needed Hydrate as needed Urine studies avoid Nephrotoxics mag K Phos supplements as needed monitor renal parameters Subjective ROS Limited/Unobtainable: Yes Objective Objective Last 24 Hour Vital Signs Date Time Temp Pulse Resp B/P (MAP) Pulse Ox O2 Delivery O2 Flow Rate FiO2 05/14/19 09:00 112 20 139/56 (83) 98 05/14/19 08:00 5.0 28 05/14/19 08:00 T-piece 5.0 T-piece 5.0 T-piece 5.0 T-piece 5.0 05/14/19 08:00 98.4 110 25 154/61 (92) 100 05/14/19 07:48 99 T-Piece 5.0 28 05/14/19 07:00 111 20 156/67 (96) 100 05/14/19 06:59 112 21 100 T-Piece 5.0 28 109 20 100 05/14/19 06:00 105 19 130/76 (94) 100 05/14/19 05:00 106 18 133/66 (88) 100 05/14/19 04:00 5.0 28 05/14/19 04:00 98.6 109 19 142/60 (87) 100 05/14/19 04:00 T-piece 5.0 T-piece 5.0 T-piece 5.0 T-piece 5.0 05/14/19 04:00 112 05/14/19 03:30 112 21 100 T-Piece 5.0 28 05/14/19 03:20 113 22 100 T-Piece 5.0 28 05/14/19 03:00 109 20 157/61 (93) 100 05/14/19 02:00 113 23 141/61 (87) 99 05/14/19 01:00 110 26 158/63 (94) 100 05/14/19 00:56 100 T-Piece 5.0 28 05/14/19 00:01 109 22 100 T-Piece 5.0 28 05/14/19 00:00 98.7 102 20 143/67 (92) 100 05/14/19 00:00 T-piece 5.0 T-piece 5.0 T-piece 5.0 T-piece 5.0 05/14/19 00:00 101 05/14/19 00:00 5.0 28 05/13/19 23:51 102 23 100 T-Piece 5.0 28 05/13/19 23:00 101 20 155/64 (94) 100 05/13/19 22:00 101 18 134/58 (83) 100 05/13/19 21:00 102 20 160/92 (114) 100 05/13/19 20:00 T-piece 5.0 T-piece 5.0 T-piece 5.0 T-piece 5.0 05/13/19 20:00 5.0 28 05/13/19 20:00 100 05/13/19 20:00 97.6 102 20 151/68 (95) 100 05/13/19 19:32 98 21 100 T-Piece 5.0 28 05/13/19 19:22 100 T-Piece 5.0 28 05/13/19 19:22 99 20 100 T-Piece 5.0 28 05/13/19 19:00 101 21 141/63 (89) 99 05/13/19 18:00 102 22 143/67 (92) 99 05/13/19 17:00 97.0 100 21 139/61 (87) 99 05/13/19 16:00 99 21 143/65 (91) 99 05/13/19 16:00 5.0 28 05/13/19 16:00 100 05/13/19 16:00 T-piece 5.0 T-piece 5.0 T-piece 5.0 T-piece 5.0 05/13/19 15:06 96 22 100 T-Piece 5.0 28 98 20 100 05/13/19 15:00 98 19 128/67 (87) 100 05/13/19 14:00 101 22 134/61 (85) 98 05/13/19 13:24 100 T-Piece 5.0 28 05/13/19 13:00 102 20 133/52 (79) 99 05/13/19 12:00 T-piece 5.0 T-piece 5.0 T-piece 5.0 T-piece 5.0 05/13/19 12:00 107 05/13/19 12:00 102 19 145/61 (89) 99 05/13/19 12:00 5.0 28 05/13/19 11:16 102 20 100 T-Piece 5.0 28 105 21 99 05/13/19 11:00 105 21 117/51 (73) 99 Intake and Output 05/13/19 05/14/19 19:00 07:00 Intake Total 2990 ml 1500 ml Output Total 1150 ml Balance 2990 ml 350 ml Free Water 80 ml IV Total 2190 ml 1020 ml Tube Feeding 720 ml 480 ml Output Urine Total 950 ml Stool Total 100 ml Other 100 ml Laboratory Tests 05/14/19 05:40: White Blood Count 14.6H, Red Blood Count 3.07L, Hemoglobin 9.0L, Hematocrit 26.7L, Mean Corpuscular Volume 87, Mean Corpuscular Hemoglobin 29.4, Mean Corpuscular Hemoglobin Concent 33.9, Red Cell Distribution Width 14.5, Platelet Count 194, Mean Platelet Volume 5.6L, Neutrophils (%) (Auto) 76.5H, Lymphocytes (%) (Auto) 16.5L, Monocytes (%) (Auto) 5.2, Eosinophils (%) (Auto) 1.5, Basophils (%) (Auto) 0.4, Sodium Level 136, Potassium Level 4.0, Chloride Level 100, Carbon Dioxide Level 29, Anion Gap 7, Blood Urea Nitrogen 26H, Creatinine 0.7, Estimat Glomerular Filtration Rate > 60, Glucose Level 114H, Calcium Level 9.0, Phosphorus Level 2.7, Magnesium Level 1.5L, Total Bilirubin 0.2, Aspartate Amino Transf (AST/SGOT) 27, Alanine Aminotransferase (ALT/SGPT) 107H, Alkaline Phosphatase 180H, C-Reactive Protein, Quantitative 7.5H, Total Protein 7.3, Albumin 2.1L, Globulin 5.2, Albumin/Globulin Ratio 0.4L Height (Feet): 5 Height (Inches): 3.00 Weight (Pounds): 144 General Appearance: no apparent distress, lethargic Cardiovascular: tachycardia Respiratory/Chest: decreased breath sounds Abdomen: distended Objective no change Eric Cortez MD May 14, 2019 10:15
[2019-05-14] MEDS: Linezolid 600mg/300mL Premix IVPB SCH ×2 (10:21→23:11)
[2019-05-14] MEDS: Meropenem 1gm/NS 110ml IVPB SCH ×4 (10:21→22:32)
--- NOTE | 2019-05-14 11:42 | NUR ---
NURSE NOTES: G-tube and J-tube both patent with no residual. G-tube set to low intermittent suction with dark brown output. Per Dr. Vaughan, monitor pt for emesis. If pt vomits, monitor whether pt coughs before emesis. Will monitor pt and endorse to next shift.
--- NOTE | 2019-05-14 12:43 | NUR ---
NURSE NOTES: Wound care done with wound care nurse. Pt cleaned and linen changed. Sacral shearing noted with bleeding. Calazime and optifoam applied. Pt repositioned and turned.
--- NOTE | 2019-05-14 15:32 | NUR ---
NURSE NOTES: Pt turned, repositioned, and suctioned. Respirations even and unlabored on t-piece. Vitals stable as documented.
--- NOTE | 2019-05-14 15:59 | NUR ---
NURSE NOTES:WOUND CARE FOLLOW-UP NOTES:Wound in web space of L index finger and L thumb has resolved. Skin is clean,pink and dry. Pt noted to have developed an area of shearing over already compromised skin from previous wound at L lower buttocks/L ischial region.Small amt sanguineous exudate noted.Hyperpigmentation noted to Sacral area and R ischium without erythema or evidence of skin breakdown noted.Bilat foot drop noted . Both heels and malleoli both feet are blanchable without evidence of Skin breakdown Pt has an APM /LAURITA mattress on her bed. Purewick and Flexiseal fecal tube in place to contain incontinence. Pt has an APM/LAURITA mattress overlay and is being positioned with pillows side to side with heels floated off mattress with pillow.Moisture Barrier Paste applied to Sacrum, R and L ischium. Each area covered with Optifoam drsgs.Cavilon Skin Barrier applied to Malleoli both feet,and both heels. Each area mentioned covered with Optifoam drsgs. and both heels floated off mattress. All wound prevention protocols continued as ordered. Will continue to monitor skin integrity. All wound prevention protocols and wound Tx continued as care-planned. Tx.plan: Apply Moisture Barrier Paste to sacrum,R and L ischial tuberosities. Cover each area with Optifoam drsg. Change every 3 days and prn. Apply Cavilon Skin Barrier to malleoli both feet and both heels. Cover each heel with Optifoam drsg . Reposition at least every 2hours or as tolerated. Off-load heels with pillow. APM/LAURITA Mattress overlay.
--- NOTE | 2019-05-14 16:12 | NUR ---
CASE MANAGEMENT: REVIEW 05/14/2019 SI:SEPSIS. PNA. T 97.8 HR 112 RR 21 B/P 138/58 SATS 99% ON TPIECE/28% FIO2 LABS:WBC 14.6 BUN 26 GLU 114 MG 1.5 AST 107 ALP 180 IS:KEPPRA GT Q12H POLYMYXIN B IV Q12H LINEZOLID IV Q12H MEROPENEM IV Q12H KEPPRA GT Q12H ICU PLAN OF CARE: Respiratory hygiene IV ANTIBX
--- NOTE | 2019-05-14 16:25 | General Progress Note ---
Assessment/Plan Problem List: (1) Seizure ICD Codes: R56.9 - Unspecified convulsions SNOMED: 82967459 (2) Anemia ICD Codes: D64.9 - Anemia, unspecified SNOMED: 554232619 Qualifiers: Qualified Codes: D64.9 - Anemia, unspecified (3) Sepsis ICD Codes: A41.9 - Sepsis, unspecified organism SNOMED: 60030589, 604834928 Qualifiers: Qualified Codes: A41.9 - Sepsis, unspecified organism (4) Respiratory failure with hypoxia ICD Codes: J96.91 - Respiratory failure, unspecified with hypoxia SNOMED: 10798323490975208 Qualifiers: Qualified Codes: J96.21 - Acute and chronic respiratory failure with hypoxia (5) HCAP (healthcare-associated pneumonia) ICD Codes: J18.9 - Pneumonia, unspecified organism SNOMED: 283294828, 298914936 (6) Sacral decubitus ulcer ICD Codes: L89.159 - Pressure ulcer of sacral region, unspecified stage SNOMED: 267918646 (7) HTN (hypertension) ICD Codes: I10 - Essential (primary) hypertension SNOMED: 80680285 (8) Chronic vegetative state ICD Codes: R40.3 - Persistent vegetative state SNOMED: 36366690 (9) Chronic respiratory failure ICD Codes: J96.10 - Chronic respiratory failure, unspecified whether with hypoxia or hypercapnia SNOMED: 10485322 (10) Limited mobility ICD Codes: Z74.09 - Other reduced mobility SNOMED: 3427832 Status: stable, progressing Assessment/Plan: iv abx per id monitor for bleeding vent as needed resp rx suctioning j tube feeds g port to gravity skin care sz rx bowel regime Subjective ROS Limited/Unobtainable: Yes Constitutional: Reports: malaise, weakness HEENT: Reports: no symptoms Cardiovascular: Reports: no symptoms Respiratory: Reports: cough, shortness of breath, SOB at rest, sputum Gastrointestinal/Abdominal: Reports: difficulty swallowing Genitourinary: Reports: no symptoms Neurologic/Psychiatric: Reports: pre-existing deficit Endocrine: Reports: no symptoms Hematologic/Lymphatic: Reports: anemia Allergies: Coded Allergies: CODEINE (Verified Allergy, Unknown, HIVES, 09/15/09) All Systems: reviewed and negative except above Subjective no events. stable on the vent. no fever, no bleeding. on iv abx. Objective Last 24 Hour Vital Signs Date Time Temp Pulse Resp B/P (MAP) Pulse Ox O2 Delivery O2 Flow Rate FiO2 05/14/19 16:00 T-piece 5.0 T-piece 5.0 T-piece 5.0 T-piece 5.0 05/14/19 16:00 5.0 28 05/14/19 15:38 107 21 100 T-Piece 5.0 28 102 20 96 05/14/19 15:00 102 21 125/49 (74) 96 05/14/19 14:00 104 23 139/62 (87) 99 05/14/19 13:00 105 19 128/51 (76) 98 05/14/19 13:00 103 20 128/51 (76) 100 05/14/19 12:37 98 T-Piece 5.0 28 05/14/19 12:00 5.0 28 05/14/19 12:00 T-piece 5.0 T-piece 5.0 T-piece 5.0 T-piece 5.0 05/14/19 12:00 100 05/14/19 12:00 97.8 112 21 138/58 (84) 99 05/14/19 11:00 105 22 136/51 (79) 100 05/14/19 10:50 105 23 100 T-Piece 5.0 28 104 19 97 05/14/19 10:49 103 19 99 T-Piece 6.0 28 05/14/19 10:00 106 22 117/48 (71) 97 05/14/19 09:00 112 20 139/56 (83) 98 05/14/19 08:00 110 05/14/19 08:00 5.0 28 05/14/19 08:00 T-piece 5.0 T-piece 5.0 T-piece 5.0 T-piece 5.0 05/14/19 08:00 98.4 110 25 154/61 (92) 100 05/14/19 07:48 99 T-Piece 5.0 28 05/14/19 07:00 111 20 156/67 (96) 100 05/14/19 06:59 112 21 100 T-Piece 5.0 28 109 20 100 05/14/19 06:00 105 19 130/76 (94) 100 05/14/19 05:00 106 18 133/66 (88) 100 05/14/19 04:00 5.0 28 05/14/19 04:00 98.6 109 19 142/60 (87) 100 05/14/19 04:00 T-piece 5.0 T-piece 5.0 T-piece 5.0 T-piece 5.0 05/14/19 04:00 112 05/14/19 03:30 112 21 100 T-Piece 5.0 28 05/14/19 03:20 113 22 100 T-Piece 5.0 28 05/14/19 03:00 109 20 157/61 (93) 100 05/14/19 02:00 113 23 141/61 (87) 99 05/14/19 01:00 110 26 158/63 (94) 100 05/14/19 00:56 100 T-Piece 5.0 28 05/14/19 00:01 109 22 100 T-Piece 5.0 28 05/14/19 00:00 98.7 102 20 143/67 (92) 100 05/14/19 00:00 T-piece 5.0 T-piece 5.0 T-piece 5.0 T-piece 5.0 05/14/19 00:00 101 05/14/19 00:00 5.0 28 05/13/19 23:51 102 23 100 T-Piece 5.0 28 05/13/19 23:00 101 20 155/64 (94) 100 05/13/19 22:00 101 18 134/58 (83) 100 05/13/19 21:00 102 20 160/92 (114) 100 05/13/19 20:00 T-piece 5.0 T-piece 5.0 T-piece 5.0 T-piece 5.0 05/13/19 20:00 5.0 28 05/13/19 20:00 100 05/13/19 20:00 97.6 102 20 151/68 (95) 100 05/13/19 19:32 98 21 100 T-Piece 5.0 28 05/13/19 19:22 100 T-Piece 5.0 28 05/13/19 19:22 99 20 100 T-Piece 5.0 28 05/13/19 19:00 101 21 141/63 (89) 99 05/13/19 18:00 102 22 143/67 (92) 99 2/12/20 17:00 97.0 100 21 139/61 (87) 99 Intake and Output 05/13/19 05/14/19 19:00 07:00 Intake Total 2990 ml 1500 ml Output Total 1150 ml Balance 2990 ml 350 ml Free Water 80 ml IV Total 2190 ml 1020 ml Tube Feeding 720 ml 480 ml Output Urine Total 950 ml Stool Total 100 ml Other 100 ml Laboratory Tests 05/14/19 05:40: White Blood Count 14.6H, Red Blood Count 3.07L, Hemoglobin 9.0L, Hematocrit 26.7L, Mean Corpuscular Volume 87, Mean Corpuscular Hemoglobin 29.4, Mean Corpuscular Hemoglobin Concent 33.9, Red Cell Distribution Width 14.5, Platelet Count 194, Mean Platelet Volume 5.6L, Neutrophils (%) (Auto) 76.5H, Lymphocytes (%) (Auto) 16.5L, Monocytes (%) (Auto) 5.2, Eosinophils (%) (Auto) 1.5, Basophils (%) (Auto) 0.4, Sodium Level 136, Potassium Level 4.0, Chloride Level 100, Carbon Dioxide Level 29, Anion Gap 7, Blood Urea Nitrogen 26H, Creatinine 0.7, Estimat Glomerular Filtration Rate > 60, Glucose Level 114H, Calcium Level 9.0, Phosphorus Level 2.7, Magnesium Level 1.5L, Total Bilirubin 0.2, Aspartate Amino Transf (AST/SGOT) 27, Alanine Aminotransferase (ALT/SGPT) 107H, Alkaline Phosphatase 180H, C-Reactive Protein, Quantitative 7.5H, Total Protein 7.3, Albumin 2.1L, Globulin 5.2, Albumin/Globulin Ratio 0.4L Height (Feet): 5 Height (Inches): 3.00 Weight (Pounds): 144 Objective General Appearance: WD/WN, confused. on trach collar Neck: supple Cardiovascular: normal rate, regular rhythm Respiratory/Chest: chest wall non-tender, rhonchi - bilaterally(minimal) Abdomen: normal bowel sounds, non tender, soft, no organomegaly Edema: no edema noted Arm (L), no edema noted Arm (R), no edema noted Leg (L), no edema noted Leg (R), no edema noted Pedal (L), no edema noted Pedal (R), no edema noted Generalized Neurologic: disoriented, unresponsive, aphasia Uomoto,Irvin M. MD May 14, 2019 16:25
--- NOTE | 2019-05-14 17:20 | Pulmonology Progress Note ---
Assessment/Plan Assessment/Plan Impression: history of Sepsis history of Pneumonia Trach, G tube, Hypertension, Cardiac disease, Dementia, Previous CVA, Seizure disorder, Respiratory failure with hypoxia Anemia, Sacral ulcer renal cyst chronic pulmonary congestion Plan continue as is monitor for change; care reviewed recent cultures reviewed and ID noted monitor imaging PRN and advise monitor labs maintain reflux aspiration elevate head and monitor secretions DNR. No CPR. ICU care reviewed meds noted and updated; neb therapy off load as able nutrition/fees/ dietary as is; monitor residuals skin care management reviewed difficulty with placement all changes noted and discussed chronic management as able medications/laboratory data/nursing notes/ICU care reviewed in detail note reviewed and edited care discussed with RN and RT Subjective ROS Limited/Unobtainable: Yes Allergies: Coded Allergies: CODEINE (Verified Allergy, Unknown, HIVES, 09/15/09) Subjective overnight events noted; poor LOC multiple cultures noted significant contractures ICU care issues discussed bed bound and obtunded Objective Last 24 Hour Vital Signs Date Time Temp Pulse Resp B/P (MAP) Pulse Ox O2 Delivery O2 Flow Rate FiO2 05/14/19 17:00 10 23 103/50 (67) 95 05/14/19 16:00 T-piece 5.0 T-piece 5.0 T-piece 5.0 T-piece 5.0 05/14/19 16:00 102 05/14/19 16:00 98.0 103 21 136/63 (87) 97 05/14/19 16:00 5.0 28 05/14/19 15:38 107 21 100 T-Piece 5.0 28 102 20 96 05/14/19 15:00 102 21 125/49 (74) 96 05/14/19 14:00 104 23 139/62 (87) 99 05/14/19 13:00 105 19 128/51 (76) 98 05/14/19 13:00 103 20 128/51 (76) 100 05/14/19 12:37 98 T-Piece 5.0 28 05/14/19 12:00 5.0 28 05/14/19 12:00 T-piece 5.0 T-piece 5.0 T-piece 5.0 T-piece 5.0 05/14/19 12:00 100 05/14/19 12:00 97.8 112 21 138/58 (84) 99 05/14/19 11:00 105 22 136/51 (79) 100 05/14/19 10:50 105 23 100 T-Piece 5.0 28 104 19 97 05/14/19 10:49 103 19 99 T-Piece 6.0 28 05/14/19 10:00 106 22 117/48 (71) 97 05/14/19 09:00 112 20 139/56 (83) 98 05/14/19 08:00 110 05/14/19 08:00 5.0 28 05/14/19 08:00 T-piece 5.0 T-piece 5.0 T-piece 5.0 T-piece 5.0 05/14/19 08:00 98.4 110 25 154/61 (92) 100 05/14/19 07:48 99 T-Piece 5.0 28 05/14/19 07:00 111 20 156/67 (96) 100 05/14/19 06:59 112 21 100 T-Piece 5.0 28 109 20 100 05/14/19 06:00 105 19 130/76 (94) 100 05/14/19 05:00 106 18 133/66 (88) 100 05/14/19 04:00 5.0 28 05/14/19 04:00 98.6 109 19 142/60 (87) 100 05/14/19 04:00 T-piece 5.0 T-piece 5.0 T-piece 5.0 T-piece 5.0 05/14/19 04:00 112 05/14/19 03:30 112 21 100 T-Piece 5.0 28 05/14/19 03:20 113 22 100 T-Piece 5.0 28 05/14/19 03:00 109 20 157/61 (93) 100 05/14/19 02:00 113 23 141/61 (87) 99 05/14/19 01:00 110 26 158/63 (94) 100 05/14/19 00:56 100 T-Piece 5.0 28 05/14/19 00:01 109 22 100 T-Piece 5.0 28 05/14/19 00:00 98.7 102 20 143/67 (92) 100 05/14/19 00:00 T-piece 5.0 T-piece 5.0 T-piece 5.0 T-piece 5.0 05/14/19 00:00 101 05/14/19 00:00 5.0 28 05/13/19 23:51 102 23 100 T-Piece 5.0 28 05/13/19 23:00 101 20 155/64 (94) 100 05/13/19 22:00 101 18 134/58 (83) 100 05/13/19 21:00 102 20 160/92 (114) 100 05/13/19 20:00 T-piece 5.0 T-piece 5.0 T-piece 5.0 T-piece 5.0 05/13/19 20:00 5.0 28 05/13/19 20:00 100 05/13/19 20:00 97.6 102 20 151/68 (95) 100 05/13/19 19:32 98 21 100 T-Piece 5.0 28 05/13/19 19:22 100 T-Piece 5.0 28 05/13/19 19:22 99 20 100 T-Piece 5.0 28 05/13/19 19:00 101 21 141/63 (89) 99 05/13/19 18:00 102 22 143/67 (92) 99 Intake and Output 05/13/19 05/14/19 19:00 07:00 Intake Total 2990 ml 1500 ml Output Total 1150 ml Balance 2990 ml 350 ml Free Water 80 ml IV Total 2190 ml 1020 ml Tube Feeding 720 ml 480 ml Output Urine Total 950 ml Stool Total 100 ml Other 100 ml Objective WDWN NAD contracted off vent reduced breath sounds bilaterally without rhonchi or wheeze [id number] without MRG NABS nontender no HSM no CC trace edema same nonfocal nonverbal trach and gt reviewed and edited Laboratory Tests 05/14/19 05:40: White Blood Count 14.6H, Red Blood Count 3.07L, Hemoglobin 9.0L, Hematocrit 26.7L, Mean Corpuscular Volume 87, Mean Corpuscular Hemoglobin 29.4, Mean Corpuscular Hemoglobin Concent 33.9, Red Cell Distribution Width 14.5, Platelet Count 194, Mean Platelet Volume 5.6L, Neutrophils (%) (Auto) 76.5H, Lymphocytes (%) (Auto) 16.5L, Monocytes (%) (Auto) 5.2, Eosinophils (%) (Auto) 1.5, Basophils (%) (Auto) 0.4, Sodium Level 136, Potassium Level 4.0, Chloride Level 100, Carbon Dioxide Level 29, Anion Gap 7, Blood Urea Nitrogen 26H, Creatinine 0.7, Estimat Glomerular Filtration Rate > 60, Glucose Level 114H, Calcium Level 9.0, Phosphorus Level 2.7, Magnesium Level 1.5L, Total Bilirubin 0.2, Aspartate Amino Transf (AST/SGOT) 27, Alanine Aminotransferase (ALT/SGPT) 107H, Alkaline Phosphatase 180H, C-Reactive Protein, Quantitative 7.5H, Total Protein 7.3, Albumin 2.1L, Globulin 5.2, Albumin/Globulin Ratio 0.4L Current Medications Medications (Trade) Dose Ordered Sig/Maicol Route PRN Reason Start Time Stop Time Status Last Admin Dose Admin Acetaminophen (Tylenol) 650 mg Q4H PRN RECTAL T>100.5 / Mild Pain 05/07/19 09:45 06/06/19 09:44 05/07/19 10:13 Albuterol/ Ipratropium (Albuterol/ Ipratropium) 3 ml Q4HRT HHN 05/10/19 19:00 05/15/19 18:59 05/14/19 15:47 Atropine Sulfate (Atropine Opth Adriana) 1 drop Q6HR SL 05/11/19 00:00 06/10/19 08:59 05/14/19 11:37 Heparin Sodium (Porcine) (Heparin 5000 units/ml) 5,000 units EVERY 12 HOURS SUBQ 05/01/19 21:00 05/31/19 20:59 05/14/19 09:17 Hydralazine HCl (Apresoline) 10 mg Q4H PRN IV For High Blood Pressure 05/11/19 05:45 06/10/19 05:44 05/12/19 00:08 Levetiracetam (Keppra) 500 mg Q12HR GT 05/01/19 21:00 05/28/19 08:59 05/14/19 09:15 Linezolid 300 ml @ 300 mls/hr Q12HR@1000,2200 IVPB 05/11/19 12:00 05/18/19 11:59 05/14/19 10:21 Meropenem 1 gm/ Sodium Chloride 110 ml @ 220 mls/hr Q12HR@1000,2200 IVPB 05/11/19 12:00 05/16/19 11:59 05/14/19 10:21 Polymyxin B Sulfate 106316 units/Dextrose 550 ml @ 550 mls/hr Q12HR IV 05/11/19 13:00 05/18/19 12:59 05/14/19 09:14 Amaury Chan MD May 14, 2019 17:20
--- NOTE | 2019-05-14 17:45 | NUR ---
NURSE NOTES: Pt turned, repositioned, and suctioned. Pt showing no signs of acute distress.
--- NOTE | 2019-05-14 19:24 | NUR ---
NURSE NOTES: Report given to JEANNINE Anglin. Pt in stable condition; plan of care endorsed. Addendum: 05/14/19 at 1925 by Saskia Morris RN REPORT GIVEN TO LONG
--- NOTE | 2019-05-14 19:30 | NUR ---
NURSE NOTES: Received report from JEANNINE Castro. Pt is sleeping on the bed and obtunded. Pt is nonverbal. On monitoring analyst with ST 103's. On T-piece; shiley 6, 28% FiO2 and Sao2 100% noted. Noted a lot of secretions with cough. Given tracheal and oral suction. Provided oral care. On J-tube feeding with vital 1.2 @ 60cc/hr and no residual noted. on G-tubed site wtih low intermittent suction. Keep HOB. Heels and sacrum dressed in optifoam for skin protection, pt on p200 mattress. IV site intact and no sign of infiltration noted. Purewick in place. Pt has Rectal tune and in place and drainage well. Placed fall and seizure precaution. Will continue to care plan.
--- NOTE | 2019-05-14 20:01 | NUR ---
RESPIRATORY NOTE: Received pt on 28% Cool Aerosol via T-Piece. Pt is trach-dependent w/ a cuffed, Shiley 6 XLT tube. Cuff is currently deflated. Pt is awake, responds to stimuli. B/S flory. rhonchi, sxn small to moderate amounts of thick/thin/frothy, boles-yellow to boles-brown secretions. [place] at bedside. Pt resting comfortably, in no apparent distress at this time. Will continue to monitor pt.
--- NOTE | 2019-05-14 20:02 | NUR ---
NURSE NOTES: Pt is resting on the bed. Oral care was done. Changed position. Will continue to monitor any change of condition.
--- NOTE | 2019-05-14 20:05 | General Progress Note ---
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 - Anemia with OB (-) stools - Resp failure, s/p Trach - dysphagia, s/p PEG --> GJ tube - OBS, vegetative obtunded unresponsive state, bedbound with contracted extremities, - h/o minor GJ tube site irritation - poor Prognosis Recommendations - Not candidate for immune suppression at this time - abx per ID - daily sorbitol, and PRN sorbitol - Cristian BID - antibiotic ointment to GJT site PRN - aspiration precautions - elevate HOB - Vital AF 1.2 - check q 6 hour FS - transfuse to keep Hg > 7 - J tube feeds - G tube ---> LIS - IVF - check ESR --> elevated - further evaluation for autoimmune hepatitis (anti DNA, ASMA) Subjective Allergies: Coded Allergies: CODEINE (Verified Allergy, Unknown, HIVES, 09/15/09) Subjective above noted d/w RN still noted to have occ small regurgitation Objective Last 24 Hour Vital Signs Date Time Temp Pulse Resp B/P (MAP) Pulse Ox O2 Delivery O2 Flow Rate FiO2 05/14/19 19:59 104 20 100 T-Piece 5.0 28 05/14/19 19:59 100 T-Piece 5.0 28 05/14/19 19:00 103 24 125/56 (79) 97 05/14/19 18:08 99 23 103/50 (67) 95 05/14/19 18:00 105 20 115/53 (73) 95 05/14/19 17:01 102 23 103/50 (67) 95 05/14/19 16:00 T-piece 5.0 T-piece 5.0 T-piece 5.0 T-piece 5.0 05/14/19 16:00 102 05/14/19 16:00 98.0 103 21 136/63 (87) 97 05/14/19 16:00 5.0 28 05/14/19 15:38 107 21 100 T-Piece 5.0 28 102 20 96 05/14/19 15:00 102 21 125/49 (74) 96 05/14/19 14:00 104 23 139/62 (87) 99 05/14/19 13:00 105 19 128/51 (76) 98 05/14/19 13:00 103 20 128/51 (76) 100 05/14/19 12:37 98 T-Piece 5.0 28 05/14/19 12:00 5.0 28 05/14/19 12:00 T-piece 5.0 T-piece 5.0 T-piece 5.0 T-piece 5.0 05/14/19 12:00 100 05/14/19 12:00 97.8 112 21 138/58 (84) 99 05/14/19 11:00 105 22 136/51 (79) 100 05/14/19 10:50 105 23 100 T-Piece 5.0 28 104 19 97 05/14/19 10:49 103 19 99 T-Piece 6.0 28 05/14/19 10:00 106 22 117/48 (71) 97 05/14/19 09:00 112 20 139/56 (83) 98 05/14/19 08:00 110 05/14/19 08:00 5.0 28 05/14/19 08:00 T-piece 5.0 T-piece 5.0 T-piece 5.0 T-piece 5.0 05/14/19 08:00 98.4 110 25 154/61 (92) 100 05/14/19 07:48 99 T-Piece 5.0 28 05/14/19 07:00 111 20 156/67 (96) 100 05/14/19 06:59 112 21 100 T-Piece 5.0 28 109 20 100 05/14/19 06:00 105 19 130/76 (94) 100 05/14/19 05:00 106 18 133/66 (88) 100 05/14/19 04:00 5.0 28 05/14/19 04:00 98.6 109 19 142/60 (87) 100 05/14/19 04:00 T-piece 5.0 T-piece 5.0 T-piece 5.0 T-piece 5.0 05/14/19 04:00 112 05/14/19 03:30 112 21 100 T-Piece 5.0 28 05/14/19 03:20 113 22 100 T-Piece 5.0 28 05/14/19 03:00 109 20 157/61 (93) 100 05/14/19 02:00 113 23 141/61 (87) 99 05/14/19 01:00 110 26 158/63 (94) 100 05/14/19 00:56 100 T-Piece 5.0 28 05/14/19 00:01 109 22 100 T-Piece 5.0 28 05/14/19 00:00 98.7 102 20 143/67 (92) 100 05/14/19 00:00 T-piece 5.0 T-piece 5.0 T-piece 5.0 T-piece 5.0 05/14/19 00:00 101 05/14/19 00:00 5.0 28 05/13/19 23:51 102 23 100 T-Piece 5.0 28 05/13/19 23:00 101 20 155/64 (94) 100 05/13/19 22:00 101 18 134/58 (83) 100 05/13/19 21:00 102 20 160/92 (114) 100 Intake and Output 05/13/19 05/14/19 19:00 07:00 Intake Total 2990 ml 1500 ml Output Total 1150 ml Balance 2990 ml 350 ml Free Water 80 ml IV Total 2190 ml 1020 ml Tube Feeding 720 ml 480 ml Output Urine Total 950 ml Stool Total 100 ml Other 100 ml Laboratory Tests 05/14/19 05:40: White Blood Count 14.6H, Red Blood Count 3.07L, Hemoglobin 9.0L, Hematocrit 26.7L, Mean Corpuscular Volume 87, Mean Corpuscular Hemoglobin 29.4, Mean Corpuscular Hemoglobin Concent 33.9, Red Cell Distribution Width 14.5, Platelet Count 194, Mean Platelet Volume 5.6L, Neutrophils (%) (Auto) 76.5H, Lymphocytes (%) (Auto) 16.5L, Monocytes (%) (Auto) 5.2, Eosinophils (%) (Auto) 1.5, Basophils (%) (Auto) 0.4, Sodium Level 136, Potassium Level 4.0, Chloride Level 100, Carbon Dioxide Level 29, Anion Gap 7, Blood Urea Nitrogen 26H, Creatinine 0.7, Estimat Glomerular Filtration Rate > 60, Glucose Level 114H, Calcium Level 9.0, Phosphorus Level 2.7, Magnesium Level 1.5L, Total Bilirubin 0.2, Aspartate Amino Transf (AST/SGOT) 27, Alanine Aminotransferase (ALT/SGPT) 107H, Alkaline Phosphatase 180H, C-Reactive Protein, Quantitative 7.5H, Total Protein 7.3, Albumin 2.1L, Globulin 5.2, Albumin/Globulin Ratio 0.4L Height (Feet): 5 Height (Inches): 3.00 Weight (Pounds): 144 Objective Debilitated AA woman non-verbal, obtunded NCAT (+) trach coarse BS RR obese abd, (+) GJT no edema (+) contractured extremities Celio Vaughan MD May 14, 2019 20:05
--- NOTE | 2019-05-14 21:48 | NUR ---
NURSE NOTES: Verified with Dr. Vaughan and Petros to give Liquid medication via J-tube and intermittent suction on G-tube. Will continue to monitor any change of condition.
--- NOTE | 2019-05-14 22:00 | NUR ---
NURSE NOTES: Pt is sleeping on the bed and no sign of acute distress noted. Given suction and clear and slight white secretion suctioned via tracheal and oral. Provided oral care. Repositioned. Will continue to monitor any change of condition.
[2019-05-15] VITALS (24 sets, daily range): BP systolic 118–155; BP diastolic 51–106
--- NOTE | 2019-05-15 | NUR ---
NURSE NOTES: Pt is sleeping on the bed and no sign of acute distress noted. On T-piece with cool aerosol and FiO2 28% and SaO2 99-100% noted. Given tracheal and oral suction. No sign of nausea/ vomiting at this time. On J-tube feeding and no residual noted and tolerated well. Changed position. Will continue to care plan.
--- NOTE | 2019-05-15 00:30 | Progress Note ---
DATE: 05/14/2019 CARDIOLOGY PROGRESS NOTE SUBJECTIVE: Stable on G-tube. No new distress. No signs of bleeding. Tolerating nutrition. Monitored sinus. OBJECTIVE: VITAL SIGNS: Blood pressure 125/49, pulse 102, respirations 21. LUNGS: Bilateral breath sounds. Few rhonchi. CARDIAC: Regular rhythm. Rapid rate. Normal S1, S2. ABDOMEN: Soft. GJ tube intact. EXTREMITIES: Trace edema. LABORATORY DATA: White count 14.6, hemoglobin 9. Sodium 136, potassium 4, BUN 26, creatinine 0.7, bicarb 29, magnesium 1.5. IMPRESSION: 1. Hypomagnesemia. 2. Respiratory failure. 3. Acute on chronic renal failure with prerenal azotemia, resolved. 4. Hypertensive heart disease. 5. Chronic diastolic congestive heart failure. 6. Secondary sinus tachycardia. 7. Urinary tract infection with sepsis. PLAN: 1. Maintain current cardiovascular regimen. 2. As needed antihypertensives only for now. 3. Additional IV magnesium. 4. Antiseizure therapy. 5. Respiratory hygiene. Bg Hagen M.D. DR: IOANA JOB#: [id number] CC:
--- NOTE | 2019-05-15 02:00 | NUR ---
NURSE NOTES: Pt is sleeping on the bed. Suction was done. On running with tube feeding via J-tube. No residual noted. Changed position. Will continue to monitor any change of condition.
[2019-05-15] MEDS: Albuterol/Ipratropium 3ml neb HHN SCH ×5 (03:31→18:54)
--- NOTE | 2019-05-15 04:00 | NUR ---
NURSE NOTES: Morning care was done. Cleaned Pt and applied lotion and cream. Repositioned. Placed fall and seizure precaution. On G-tube lower intermittent suction and brownish color output noted. Placed fall and seizure precaution. Will continue to monitor any change of condition.
--- NOTE | 2019-05-15 06:00 | NUR ---
NURSE NOTES: Pt is sleeping on the bed and V/S stable. Still on G-tubed low intermittent suction. No episode of active vomiting but noted slight brownish secretion when tracheal suction. Dr. Beltrán visited and assessed Pt and no new order noted at this time. Will continue to monitor any change of condition.
--- NOTE | 2019-05-15 07:15 | NUR ---
HAND-OFF: Report given to JEANNINE Honeycutt. Pt is sleeping on the bed and no sign of acute distress noted. Dr. Vaughan visited ad assessed Pt.
--- NOTE | 2019-05-15 07:30 | NUR ---
NURSE NOTES: LATE ENTRY: RECEIVED REPORT FROM LONG Ramos PT IN BED. OBTUNDED. RESPONSIVE TO SHAKING. ST112 ON MONITOR BP 145/52, RR 28. PUPILS 4MM SLUGGISH. NO S/S OF PAIN. BILATERAL UPPER AND LOWER EXTREMITY CONTRACTURES. RC DRAINING URINE. PT TRACH SHILEY6 XTL T-PIECE 28% 5L, SATING 98%. LUNGS BILATERAL RHONCHI. SECRETIONS COLOR RANGE FROM WHITE TO BROWN. NO BM AT THIS TIME. PUREWICK PRESENT, PERICARE PROVIDED. SKIN -SEE ASSESSMENT. IV 24G, RT CHEST. FALL, SZ, AND CONTACT PRECAUTIONS IN PLACE. BED LOW AND LOCKED IN POSITION. EDUCATED PT ON PLAN OF CARE. WILL CONTINUE TO MONITOR PT.
[2019-05-15] MEDS: levETIRAcetam 500mg/5ml Liquid GT SCH ×2 (08:37→20:50)
[2019-05-15] MEDS: Meropenem 1gm/NS 110ml IVPB SCH ×4 (08:37→22:06)
[2019-05-15] MEDS: Heparin 5000 units/ml inj SUBQ SCH ×2 (08:38→20:52)
--- NOTE | 2019-05-15 09:11 | NUR ---
NURSE NOTES: ENTERING CORRECTED ISOLATION 01/24/2019 Addendum: 05/15/19 at 0914 by Angela Honeycutt RN Amended: Links added.
[2019-05-15] MEDS: D5W IV SCH ×2 (09:40→21:12)
[2019-05-15] MEDS: POLYMYXIN B SULFATE IV SCH ×2 (09:40→21:12)
[2019-05-15] MEDS: Linezolid 600mg/300mL Premix IVPB SCH ×2 (09:41→22:06)
--- NOTE | 2019-05-15 09:51 | Nephrology Progress Note ---
Assessment/Plan Problem List: (1) Acute renal failure (ARF) Assessment: Cr stable (2) Chronic respiratory failure (3) Anemia (4) Sepsis Assessment Acute renal failure Respiratory failure - Trach Low Mag- Low k , Low Na Anemia UTI / Sepsis Proteinuria / HypoAlbuminemia high Trigs Sz decubs bed bound DNR Plan Mag IV today Transfused 05/09 now has JT bolus Albumin as needed K and Mag and Phos supplement as needed Hydrate as needed Urine studies avoid Nephrotoxics mag K Phos supplements as needed monitor renal parameters Subjective ROS Limited/Unobtainable: Yes Objective Objective Last 24 Hour Vital Signs Date Time Temp Pulse Resp B/P (MAP) Pulse Ox O2 Delivery O2 Flow Rate FiO2 05/15/19 09:00 108 20 149/59 (89) 100 05/15/19 08:00 112 05/15/19 08:00 T-piece 5.0 T-piece 5.0 T-piece 5.0 T-piece 5.0 05/15/19 08:00 5.0 28 05/15/19 08:00 99.0 109 21 145/52 (83) 100 05/15/19 07:00 112 23 138/58 (84) 98 05/15/19 06:54 111 21 100 T-Piece 5.0 28 110 23 100 05/15/19 06:43 100 T-Piece 5.0 28 05/15/19 06:00 111 21 138/58 (84) 99 05/15/19 05:00 106 20 132/51 (78) 100 05/15/19 04:00 T-piece 5.0 T-piece 5.0 T-piece 5.0 T-piece 5.0 05/15/19 04:00 111 05/15/19 04:00 5.0 28 05/15/19 04:00 98.7 107 20 136/54 (81) 100 05/15/19 03:41 112 20 99 T-Piece 5.0 28 05/15/19 03:31 111 21 99 T-Piece 5.0 28 05/15/19 03:00 110 19 137/55 (82) 99 05/15/19 02:00 110 21 136/62 (86) 99 05/15/19 01:18 99 T-Piece 5.0 28 05/15/19 01:00 111 25 132/58 (82) 98 05/15/19 00:00 5.0 28 05/15/19 00:00 T-piece 5.0 T-piece 5.0 T-piece 5.0 T-piece 5.0 05/15/19 00:00 98.3 109 22 134/58 (83) 100 05/15/19 00:00 108 05/14/19 23:30 106 22 100 T-Piece 5.0 28 05/14/19 23:20 102 23 100 T-Piece 5.0 28 05/14/19 23:00 106 22 138/59 (85) 98 05/14/19 22:00 105 22 110/51 (70) 99 05/14/19 21:00 106 25 144/55 (84) 100 05/14/19 20:09 105 22 100 T-Piece 5.0 28 05/14/19 20:00 102 05/14/19 20:00 T-piece 5.0 T-piece 5.0 T-piece 5.0 T-piece 5.0 05/14/19 20:00 98.0 105 21 127/60 (82) 100 05/14/19 20:00 5.0 28 05/14/19 19:59 104 20 100 T-Piece 5.0 28 05/14/19 19:59 100 T-Piece 5.0 28 05/14/19 19:00 103 24 125/56 (79) 97 05/14/19 18:08 99 23 103/50 (67) 95 05/14/19 18:00 105 20 115/53 (73) 95 05/14/19 17:01 102 23 103/50 (67) 95 05/14/19 16:00 T-piece 5.0 T-piece 5.0 T-piece 5.0 T-piece 5.0 05/14/19 16:00 102 05/14/19 16:00 98.0 103 21 136/63 (87) 97 05/14/19 16:00 5.0 28 05/14/19 15:38 107 21 100 T-Piece 5.0 28 102 20 96 05/14/19 15:00 102 21 125/49 (74) 96 05/14/19 14:00 104 23 139/62 (87) 99 05/14/19 13:00 105 19 128/51 (76) 98 05/14/19 13:00 103 20 128/51 (76) 100 05/14/19 12:37 98 T-Piece 5.0 28 05/14/19 12:00 5.0 28 05/14/19 12:00 T-piece 5.0 T-piece 5.0 T-piece 5.0 T-piece 5.0 05/14/19 12:00 100 05/14/19 12:00 97.8 112 21 138/58 (84) 99 05/14/19 11:00 105 22 136/51 (79) 100 05/14/19 10:50 105 23 100 T-Piece 5.0 28 104 19 97 05/14/19 10:49 103 19 99 T-Piece 6.0 28 05/14/19 10:00 106 22 117/48 (71) 97 Intake and Output 05/14/19 05/15/19 19:00 07:00 Intake Total 680 ml 1680 ml Output Total 850 ml 1180 ml Balance -170 ml 500 ml IV Total 960 ml Tube Feeding 680 ml 720 ml Output Urine Total 700 ml 1000 ml Stool Total 50 ml 30 ml Gastric Drainage Total 100 ml 150 ml Height (Feet): 5 Height (Inches): 3.00 Weight (Pounds): 134 General Appearance: no apparent distress EENT: other - trach to O2 Cardiovascular: tachycardia Respiratory/Chest: decreased breath sounds Abdomen: distended Objective no change Eric Cortez MD May 15, 2019 09:50
--- NOTE | 2019-05-15 10:24 | Infectious Diseases Prog Note ---
"Assessment/Plan Assessment/Plan antibiotics : linezolid, meropenem, polymyxin 2.10.20 - A 1. proteus | pseudomonas | providencia pneumonia 2. klebsiella sepsis s/p catheter removal 3. respiratory failure 4. hypertension 5. CVA 6. dementia 7. rectal VRE colonization 8. leucocytosis improving 9. shock 10. VRE UTI P 1. continue linezolid 2 more days 2. continue meropenem, polymyxin 2 more days 3, will follow up cultures Subjective ROS Limited/Unobtainable: Yes Allergies: Coded Allergies: CODEINE (Verified Allergy, Unknown, HIVES, 09/15/09) Objective Vital Signs Last 24 Hour Vital Signs Date Time Temp Pulse Resp B/P (MAP) Pulse Ox O2 Delivery O2 Flow Rate FiO2 05/15/19 09:00 108 20 149/59 (89) 100 05/15/19 08:00 112 05/15/19 08:00 T-piece 5.0 T-piece 5.0 T-piece 5.0 T-piece 5.0 05/15/19 08:00 5.0 28 05/15/19 08:00 99.0 109 21 145/52 (83) 100 05/15/19 07:00 112 23 138/58 (84) 98 05/15/19 06:54 111 21 100 T-Piece 5.0 28 110 23 100 05/15/19 06:43 100 T-Piece 5.0 28 05/15/19 06:00 111 21 138/58 (84) 99 05/15/19 05:00 106 20 132/51 (78) 100 05/15/19 04:00 T-piece 5.0 T-piece 5.0 T-piece 5.0 T-piece 5.0 05/15/19 04:00 111 05/15/19 04:00 5.0 28 05/15/19 04:00 98.7 107 20 136/54 (81) 100 05/15/19 03:41 112 20 99 T-Piece 5.0 28 05/15/19 03:31 111 21 99 T-Piece 5.0 28 05/15/19 03:00 110 19 137/55 (82) 99 05/15/19 02:00 110 21 136/62 (86) 99 05/15/19 01:18 99 T-Piece 5.0 28 05/15/19 01:00 111 25 132/58 (82) 98 05/15/19 00:00 5.0 28 05/15/19 00:00 T-piece 5.0 T-piece 5.0 T-piece 5.0 T-piece 5.0 05/15/19 00:00 98.3 109 22 134/58 (83) 100 05/15/19 00:00 108 05/14/19 23:30 106 22 100 T-Piece 5.0 28 05/14/19 23:20 102 23 100 T-Piece 5.0 28 05/14/19 23:00 106 22 138/59 (85) 98 05/14/19 22:00 105 22 110/51 (70) 99 05/14/19 21:00 106 25 144/55 (84) 100 05/14/19 20:09 105 22 100 T-Piece 5.0 28 05/14/19 20:00 102 05/14/19 20:00 T-piece 5.0 T-piece 5.0 T-piece 5.0 T-piece 5.0 05/14/19 20:00 98.0 105 21 127/60 (82) 100 05/14/19 20:00 5.0 28 05/14/19 19:59 104 20 100 T-Piece 5.0 28 05/14/19 19:59 100 T-Piece 5.0 28 05/14/19 19:00 103 24 125/56 (79) 97 05/14/19 18:08 99 23 103/50 (67) 95 05/14/19 18:00 105 20 115/53 (73) 95 05/14/19 17:01 102 23 103/50 (67) 95 05/14/19 16:00 T-piece 5.0 T-piece 5.0 T-piece 5.0 T-piece 5.0 05/14/19 16:00 102 05/14/19 16:00 98.0 103 21 136/63 (87) 97 05/14/19 16:00 5.0 28 05/14/19 15:38 107 21 100 T-Piece 5.0 28 102 20 96 05/14/19 15:00 102 21 125/49 (74) 96 05/14/19 14:00 104 23 139/62 (87) 99 05/14/19 13:00 105 19 128/51 (76) 98 05/14/19 13:00 103 20 128/51 (76) 100 05/14/19 12:37 98 T-Piece 5.0 28 05/14/19 12:00 5.0 28 05/14/19 12:00 T-piece 5.0 T-piece 5.0 T-piece 5.0 T-piece 5.0 05/14/19 12:00 100 05/14/19 12:00 97.8 112 21 138/58 (84) 99 05/14/19 11:00 105 22 136/51 (79) 100 05/14/19 10:50 105 23 100 T-Piece 5.0 28 104 19 97 05/14/19 10:49 103 19 99 T-Piece 6.0 28 Height (Feet): 5 Height (Inches): 3.00 Weight (Pounds): 134 Respiratory/Chest: rhonchi - bilaterally - decreased Cardiovascular: normal rate, regular rhythm, no gallop/murmur Abdomen: soft, non tender, other - GT Extremities: no edema Current Medications Medications (Trade) Dose Ordered Sig/Maicol Route PRN Reason Start Time Stop Time Status Last Admin Dose Admin Acetaminophen (Tylenol) 650 mg Q4H PRN RECTAL T>100.5 / Mild Pain 05/07/19 09:45 06/06/19 09:44 05/07/19 10:13 Albuterol/ Ipratropium (Albuterol/ Ipratropium) 3 ml Q4HRT HHN 05/10/19 19:00 05/15/19 18:59 05/15/19 06:44 Atropine Sulfate (Atropine Opth Adriana) 1 drop Q6HR SL 05/11/19 00:00 06/10/19 08:59 05/15/19 05:29 Heparin Sodium (Porcine) (Heparin 5000 units/ml) 5,000 units EVERY 12 HOURS SUBQ 05/01/19 21:00 05/31/19 20:59 05/14/19 21:16 Hydralazine HCl (Apresoline) 10 mg Q4H PRN IV For High Blood Pressure 05/11/19 05:45 06/10/19 05:44 05/12/19 00:08 Levetiracetam (Keppra) 500 mg Q12HR GT 05/01/19 21:00 05/28/19 08:59 05/15/19 08:37 Linezolid 300 ml @ 300 mls/hr Q12HR@1000,2200 IVPB 05/11/19 12:00 05/18/19 23:59 05/15/19 09:41 Meropenem 1 gm/ Sodium Chloride 110 ml @ 220 mls/hr Q12HR@1000,2200 IVPB 05/11/19 12:00 05/18/19 23:59 05/15/19 08:37 Polymyxin B Sulfate [id number] units/Dextrose 550 ml @ 550 mls/hr Q12HR IV 05/11/19 13:00 05/18/19 23:59 05/15/19 09:40 Geovany Yang MD May 15, 2019 10:24"
--- NOTE | 2019-05-15 12:00 | NUR ---
NURSE NOTES: LATE ENTRY: PT IN BED. OBTUNDED. ST108 ON MONITOR BP 151/61, RR 21. NO S/S OF PAIN. CR DRAINING URINE. PT TRACH [id number] XTL T-PIECE 28% 5L, SATING 98%. LUNGS BILATERAL RHONCHI. SECRETIONS COLOR RANGE FROM WHITE TO BROWN. PT SUCTIONED. REPOSITIONED. PERICARE PROVIDED. IV 24G, RT CHEST. FALL, SZ, AND CONTACT PRECAUTIONS IN PLACE. BED LOW AND LOCKED IN POSITION. WILL CONTINUE TO MONITOR PT.
[2019-05-15] MEDS: NS IVPB SCH (12:54)
[2019-05-15] MEDS: MICAFUNGIN IVPB SCH (12:54)
--- NOTE | 2019-05-15 14:00 | NUR ---
NURSE NOTES: CLEANED SECRETIONS FROM PT MOUTH, BROWN IN COLOR. SUCTIONED AIRWAY AND PROVIDED ORAL CARE. HOB >30. G-TUBE RUNNING AT 60ML. CONNECTED TO WALL INTERMITTENT LOW SUCTION.
--- NOTE | 2019-05-15 15:06 | General Progress Note ---
Assessment/Plan Problem List: (1) Seizure ICD Codes: R56.9 - Unspecified convulsions SNOMED: 43592595 (2) Anemia ICD Codes: D64.9 - Anemia, unspecified SNOMED: 883481488 Qualifiers: Qualified Codes: D64.9 - Anemia, unspecified (3) Sepsis ICD Codes: A41.9 - Sepsis, unspecified organism SNOMED: 55491810, 584343863 Qualifiers: Qualified Codes: A41.9 - Sepsis, unspecified organism (4) Respiratory failure with hypoxia ICD Codes: J96.91 - Respiratory failure, unspecified with hypoxia SNOMED: 09289678655012351 Qualifiers: Qualified Codes: J96.21 - Acute and chronic respiratory failure with hypoxia (5) HCAP (healthcare-associated pneumonia) ICD Codes: J18.9 - Pneumonia, unspecified organism SNOMED: 047549657, 799042303 (6) Sacral decubitus ulcer ICD Codes: L89.159 - Pressure ulcer of sacral region, unspecified stage SNOMED: 375487711 (7) HTN (hypertension) ICD Codes: I10 - Essential (primary) hypertension SNOMED: 52967828 (8) Chronic vegetative state ICD Codes: R40.3 - Persistent vegetative state SNOMED: 46889658 (9) Chronic respiratory failure ICD Codes: J96.10 - Chronic respiratory failure, unspecified whether with hypoxia or hypercapnia SNOMED: 04153371 (10) Limited mobility ICD Codes: Z74.09 - Other reduced mobility SNOMED: 0407253 Status: stable, progressing Assessment/Plan: iv abx per id monitor for bleeding vent as needed resp rx suctioning j tube feeds g port to gravity skin care sz rx bowel regime Subjective ROS Limited/Unobtainable: Yes Constitutional: Reports: malaise, weakness HEENT: Reports: no symptoms Cardiovascular: Reports: no symptoms Respiratory: Reports: shortness of breath Gastrointestinal/Abdominal: Reports: difficulty swallowing Genitourinary: Reports: no symptoms Neurologic/Psychiatric: Reports: pre-existing deficit, seizure Endocrine: Reports: no symptoms Hematologic/Lymphatic: Reports: anemia Allergies: Coded Allergies: CODEINE (Verified Allergy, Unknown, HIVES, 09/15/09) All Systems: reviewed and negative except above Subjective no events. stable on the vent. no fever, no bleeding. on iv abx. Objective Last 24 Hour Vital Signs Date Time Temp Pulse Resp B/P (MAP) Pulse Ox O2 Delivery O2 Flow Rate FiO2 05/15/19 14:52 109 22 100 T-Piece 5.0 28 109 22 99 05/15/19 14:00 109 22 138/52 (80) 100 05/15/19 13:13 100 T-Piece 5.0 28 05/15/19 13:00 108 20 151/61 (91) 100 05/15/19 12:00 5.0 28 05/15/19 12:00 98.8 110 23 133/52 (79) 100 05/15/19 12:00 T-piece 5.0 T-piece 5.0 T-piece 5.0 T-piece 5.0 05/15/19 12:00 109 05/15/19 11:00 111 22 146/58 (87) 98 05/15/19 10:31 110 22 100 T-Piece 5.0 28 108 24 100 05/15/19 10:00 108 22 118/55 (76) 99 05/15/19 09:00 108 20 149/59 (89) 100 05/15/19 08:00 112 05/15/19 08:00 T-piece 5.0 T-piece 5.0 T-piece 5.0 T-piece 5.0 05/15/19 08:00 5.0 28 05/15/19 08:00 99.0 109 21 145/52 (83) 100 05/15/19 07:00 112 23 138/58 (84) 98 05/15/19 06:54 111 21 100 T-Piece 5.0 28 110 23 100 05/15/19 06:43 100 T-Piece 5.0 28 05/15/19 06:00 111 21 138/58 (84) 99 05/15/19 05:00 106 20 132/51 (78) 100 05/15/19 04:00 T-piece 5.0 T-piece 5.0 T-piece 5.0 T-piece 5.0 05/15/19 04:00 111 05/15/19 04:00 5.0 28 05/15/19 04:00 98.7 107 20 136/54 (81) 100 05/15/19 03:41 112 20 99 T-Piece 5.0 28 05/15/19 03:31 111 21 99 T-Piece 5.0 28 05/15/19 03:00 110 19 137/55 (82) 99 05/15/19 02:00 110 21 136/62 (86) 99 05/15/19 01:18 99 T-Piece 5.0 28 05/15/19 01:00 111 25 132/58 (82) 98 05/15/19 00:00 5.0 28 05/15/19 00:00 T-piece 5.0 T-piece 5.0 T-piece 5.0 T-piece 5.0 05/15/19 00:00 98.3 109 22 134/58 (83) 100 05/15/19 00:00 108 05/14/19 23:30 106 22 100 T-Piece 5.0 28 05/14/19 23:20 102 23 100 T-Piece 5.0 28 05/14/19 23:00 106 22 138/59 (85) 98 05/14/19 22:00 105 22 110/51 (70) 99 05/14/19 21:00 106 25 144/55 (84) 100 05/14/19 20:09 105 22 100 T-Piece 5.0 28 05/14/19 20:00 102 05/14/19 20:00 T-piece 5.0 T-piece 5.0 T-piece 5.0 T-piece 5.0 05/14/19 20:00 98.0 105 21 127/60 (82) 100 05/14/19 20:00 5.0 28 05/14/19 19:59 104 20 100 T-Piece 5.0 28 05/14/19 19:59 100 T-Piece 5.0 28 05/14/19 19:00 103 24 125/56 (79) 97 05/14/19 18:08 99 23 103/50 (67) 95 05/14/19 18:00 105 20 115/53 (73) 95 05/14/19 17:01 102 23 103/50 (67) 95 05/14/19 16:00 T-piece 5.0 T-piece 5.0 T-piece 5.0 T-piece 5.0 05/14/19 16:00 102 05/14/19 16:00 98.0 103 21 136/63 (87) 97 05/14/19 16:00 5.0 28 05/14/19 15:38 107 21 100 T-Piece 5.0 28 102 20 96 Intake and Output 05/14/19 05/15/19 19:00 07:00 Intake Total 680 ml 1680 ml Output Total 850 ml 1180 ml Balance -170 ml 500 ml IV Total 960 ml Tube Feeding 680 ml 720 ml Output Urine Total 700 ml 1000 ml Stool Total 50 ml 30 ml Gastric Drainage Total 100 ml 150 ml Height (Feet): 5 Height (Inches): 3.00 Weight (Pounds): 134 Objective General Appearance: WD/WN, confused. on trach collar Neck: supple Cardiovascular: normal rate, regular rhythm Respiratory/Chest: chest wall non-tender, rhonchi - bilaterally(minimal) Abdomen: normal bowel sounds, non tender, soft, no organomegaly Edema: no edema noted Arm (L), no edema noted Arm (R), no edema noted Leg (L), no edema noted Leg (R), no edema noted Pedal (L), no edema noted Pedal (R), no edema noted Generalized Neurologic: disoriented, unresponsive, aphasia Irvin Beltrán MD May 15, 2019 15:05
--- NOTE | 2019-05-15 18:00 | NUR ---
NURSE NOTES: PT IN BED. GTUBE TO AND SUCTION TO LOW INTERMITTENT SUCTION. PURE WICK CONNECTED TO WALL SUCTION CONTINUOUS. PT ORAL CARE PROVIDED. A FEBRILE. SACRAL DRESSING CHANGED AND WOUNDS CLEANED. PILLOW SUPPORT FOR PT. ON P200 MATTRESS.
--- NOTE | 2019-05-15 18:06 | General Progress Note ---
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 - Anemia with OB (-) stools - Resp failure, s/p Trach - OBS, vegetative obtunded unresponsive state, bedbound with contracted extremities, - h/o minor GJ tube site irritation - poor Prognosis Recommendations - Not candidate for immune suppression at this time - abx per ID - PPI daily - daily sorbitol, and PRN sorbitol - Cristian BID - antibiotic ointment to GJT site PRN - aspiration precautions - elevate HOB - Vital AF 1.2 - transfuse to keep Hg > 7 - J tube feeds - G tube ---> LIS - check ESR --> elevated - further evaluation for autoimmune hepatitis (anti DNA, ASMA) Subjective Allergies: Coded Allergies: CODEINE (Verified Allergy, Unknown, HIVES, 09/15/09) Subjective above noted d/w RN some brown secretions from trachea aspirate reported Objective Last 24 Hour Vital Signs Date Time Temp Pulse Resp B/P (MAP) Pulse Ox O2 Delivery O2 Flow Rate FiO2 05/15/19 17:00 103 20 140/64 (89) 100 05/15/19 16:00 5.0 28 05/15/19 16:00 T-piece 5.0 T-piece 5.0 T-piece 5.0 T-piece 5.0 05/15/19 16:00 99.1 108 22 129/58 (81) 99 05/15/19 15:00 110 24 150/100 (117) 100 05/15/19 14:52 109 22 100 T-Piece 5.0 28 109 22 99 05/15/19 14:00 109 22 138/52 (80) 100 05/15/19 13:13 100 T-Piece 5.0 28 05/15/19 13:00 108 20 151/61 (91) 100 05/15/19 12:00 5.0 28 05/15/19 12:00 98.8 110 23 133/52 (79) 100 05/15/19 12:00 T-piece 5.0 T-piece 5.0 T-piece 5.0 T-piece 5.0 05/15/19 12:00 109 05/15/19 11:00 111 22 146/58 (87) 98 05/15/19 10:31 110 22 100 T-Piece 5.0 28 108 24 100 05/15/19 10:00 108 22 118/55 (76) 99 05/15/19 09:00 108 20 149/59 (89) 100 05/15/19 08:00 112 05/15/19 08:00 T-piece 5.0 T-piece 5.0 T-piece 5.0 T-piece 5.0 05/15/19 08:00 5.0 28 05/15/19 08:00 99.0 109 21 145/52 (83) 100 05/15/19 07:00 112 23 138/58 (84) 98 05/15/19 06:54 111 21 100 T-Piece 5.0 28 110 23 100 05/15/19 06:43 100 T-Piece 5.0 28 05/15/19 06:00 111 21 138/58 (84) 99 05/15/19 05:00 106 20 132/51 (78) 100 05/15/19 04:00 T-piece 5.0 T-piece 5.0 T-piece 5.0 T-piece 5.0 05/15/19 04:00 111 05/15/19 04:00 5.0 28 05/15/19 04:00 98.7 107 20 136/54 (81) 100 05/15/19 03:41 112 20 99 T-Piece 5.0 28 05/15/19 03:31 111 21 99 T-Piece 5.0 28 05/15/19 03:00 110 19 137/55 (82) 99 05/15/19 02:00 110 21 136/62 (86) 99 05/15/19 01:18 99 T-Piece 5.0 28 05/15/19 01:00 111 25 132/58 (82) 98 05/15/19 00:00 5.0 28 05/15/19 00:00 T-piece 5.0 T-piece 5.0 T-piece 5.0 T-piece 5.0 05/15/19 00:00 98.3 109 22 134/58 (83) 100 05/15/19 00:00 108 05/14/19 23:30 106 22 100 T-Piece 5.0 28 05/14/19 23:20 102 23 100 T-Piece 5.0 28 05/14/19 23:00 106 22 138/59 (85) 98 05/14/19 22:00 105 22 110/51 (70) 99 05/14/19 21:00 106 25 144/55 (84) 100 05/14/19 20:09 105 22 100 T-Piece 5.0 28 05/14/19 20:00 102 05/14/19 20:00 T-piece 5.0 T-piece 5.0 T-piece 5.0 T-piece 5.0 05/14/19 20:00 98.0 105 21 127/60 (82) 100 05/14/19 20:00 5.0 28 05/14/19 19:59 104 20 100 T-Piece 5.0 28 05/14/19 19:59 100 T-Piece 5.0 28 05/14/19 19:00 103 24 125/56 (79) 97 05/14/19 18:08 99 23 103/50 (67) 95 Intake and Output 05/14/19 05/15/19 19:00 07:00 Intake Total 680 ml 1680 ml Output Total 850 ml 1180 ml Balance -170 ml 500 ml IV Total 960 ml Tube Feeding 680 ml 720 ml Output Urine Total 700 ml 1000 ml Stool Total 50 ml 30 ml Gastric Drainage Total 100 ml 150 ml Height (Feet): 5 Height (Inches): 3.00 Weight (Pounds): 134 Objective Debilitated AA woman non-verbal, obtunded NCAT (+) trach coarse BS RR obese abd, (+) GJT no edema (+) contractured extremities Celio Vaughan MD May 15, 2019 18:06
[2019-05-15] MEDS: Pantoprazole Inj IVP SCH (18:52)
--- NOTE | 2019-05-15 19:46 | NUR ---
HAND-OFF: Report given to JOSEE Covington PT IN NO ACUTE DISTRESS.
--- NOTE | 2019-05-15 20:00 | NUR ---
NURSE NOtes received report from cheryl pt obtunded open eyes no tracking leah ragsdale 6 fio2 28 o/o no resp distress noted reposition and suction
--- NOTE | 2019-05-15 22:00 | NUR ---
NURSE NOTES: tolerating tube feeding no residual family visiting reposition and suction
[2019-05-16] VITALS (24 sets, daily range): BP systolic 95–185; BP diastolic 43–91
--- NOTE | 2019-05-16 | NUR ---
NURSE NOTES: reposition and suction iv infusing well
--- NOTE | 2019-05-16 01:00 | NUR ---
HAND-OFF: Report given to .anna mann using sbar
--- NOTE | 2019-05-16 01:30 | NUR ---
[facility] Downtime: On 05/16/2019 From 0130H to 0600H The following electronic documentation will be located in the patient handwritten chart: Nursing Documentation Medication Administration Records
--- NOTE | 2019-05-16 05:00 | NUR ---
NURSE NOTES: Sacral noted to have redness, dressing change done
--- NOTE | 2019-05-16 06:10 | Progress Note ---
DATE: 05/15/2019 CARDIOLOGY PROGRESS NOTE SUBJECTIVE: The patient remains on vent support. No distress. OBJECTIVE: VITAL SIGNS: Blood pressure 138/52, heart rate 109, and respiratory rate 22. Cardiac monitoring reviewed by me. Sinus tachycardia noted. LUNGS: Thin secretions from trach. Bilateral breath sounds. CARDIAC: Regular rhythm and rate. Normal S1 and S2 with appreciable murmur. ABDOMEN: Soft with GJ tube intact. EXTREMITIES: With trace edema. LABORATORY DATA: No new lab studies today. IMPRESSION: 1. KPC bacteremia. 2. Sepsis. 3. Respiratory failure. 4. Dehydration. 5. Hypernatremia, corrected. 6. Acute on chronic renal failure, recovered. 7. Hypertensive heart disease. 8. Chronic diastolic congestive heart failure. PLAN: 1. Respiratory therapy. 2. Antimicrobials. 3. Nutrition by J-tube. 4. DVT and stress ulcer prophylaxes. 5. Titration of antihypertensives. 6. Consider resumption of beta-martha if daughter will agree in the past, she has been against this type of therapy. Bg Hagen M.D. DR: PIYUSH JOB#: [id number] CC:
--- NOTE | 2019-05-16 06:48 | NUR ---
NURSE NOTES: Received order from Dr. Beltrán that may insert peripheral IV on the foot. G24 inserted at right foot with good backflow
--- NOTE | 2019-05-16 07:00 | NUR ---
NURSE NOTES: Pt received from JEANNINE Church without cardiopulmonary distress noted. Pt is awake in bed, obtunded, opens when called by name or shaken, pupils are equal and round 4mm and sluggish to light reaction. Pt is ST to athletic monitor, afebrile. radial pulses palpable 2+ bilaterally and dorsalis pedis pulses 2+ bilaterally. cap refill< 3 sec. Pt noted with T-piece on 5L O2 with FiO2 28%. Lung sounds noted diminished to bilat lower lung lobes. Bilat upper lung lobes noted with crackles. GT noted with dry and intact dressing hooked to low intermittent suction with brown, cloudy gastric secretions. JT running Vital AF 1.2 at 60 cc/hr. no nausea or vomiting noted. Abd is round and slightly firm to left side, with hypoactive bowel sounds to all quadrants. Purewick noted draining yellow urine. Skin alterations noted. Pt has a right foot 24g IV and 24g IV below right breast area saline locked. Bed in lowest position, alarm on, side rails up x 2 and padded per seizure precaution, call light within reach, will continue to monitor. Addendum: 05/17/19 at 0827 by Sandy Chi RN Late entry: Pt also has a rectal tube draining brown liquid stool
[2019-05-16] MEDS: Albuterol/Ipratropium 3ml neb HHN SCH ×5 (07:40→22:44)
--- NOTE | 2019-05-16 07:42 | NUR ---
RESPIRATORY NOTE: Received pt on CA 28% via T-Piece. Pt has shiley 6 XLT tube, cuff deflated. Pt is awake and responds to stimuli. Suction pt with small to moderate amounts of thin/frothy, white secretions. Ambu bag at bedside. Pt resting comfortably, no distress noted at this time. Will continue to monitor.
--- NOTE | 2019-05-16 08:00 | NUR ---
NURSE NOTES: Pt suctioned, oral care provided, pt repositioned and in no acute distress. GT and JT flushed with 60 cc H20 each. Will continue to monitor pt. Addendum: 05/16/19 at 1954 by Sandy Chi RN Amendment: GT flushed with 100 cc and JT with 150 cc H20.
--- NOTE | 2019-05-16 08:30 | NUR ---
NURSE NOTES: Dr Beltrán at bedside assessing pt.
[2019-05-16] MEDS: levETIRAcetam 500mg/5ml Liquid GT SCH ×2 (08:34→20:13)
[2019-05-16] MEDS: Pantoprazole Inj IVP SCH (08:34)
[2019-05-16] MEDS: Heparin 5000 units/ml inj SUBQ SCH ×2 (08:35→20:14)
[2019-05-16] MEDS: D5W IV SCH ×2 (08:52→20:52)
[2019-05-16] MEDS: POLYMYXIN B SULFATE IV SCH ×2 (08:52→20:52)
--- NOTE | 2019-05-16 09:00 | NUR ---
NURSE NOTES: Pt now opens eyes spontaneously. No acute distress noted.
--- NOTE | 2019-05-16 09:34 | Pulmonology Progress Note ---
Assessment/Plan Assessment/Plan Impression: Fungemia [facility]+ history of Pneumonia Trach, G tube, Hypertension, Cardiac disease, Dementia, Previous CVA, Seizure disorder, Respiratory failure with hypoxia Anemia, Sacral ulcer renal cyst chronic pulmonary congestion Plan antifungals antimicrobials ID following monitor for change; care reviewed recent cultures reviewed and ID noted monitor imaging for change Vent PRN monitor labs maintain reflux aspiration elevate head and monitor secretions monitor labs monitor vitals; and adjust meds DNR. No CPR. ICU care reviewed meds noted and updated; neb therapy off load as able nutrition/fees/ dietary as is; monitor residuals skin care management reviewed difficulty with placement all changes noted and discussed chronic management as able medications/laboratory data/nursing notes/ICU care reviewed in detail note reviewed and edited care discussed with RN and RT time spent x 40 minutes Subjective ROS Limited/Unobtainable: Yes Allergies: Coded Allergies: CODEINE (Verified Allergy, Unknown, HIVES, 09/15/09) Subjective overnight events noted; poor LOC multiple cultures noted now with fungemia; noted [facility] ICU care issues discussed bed bound and obtunded Objective Last 24 Hour Vital Signs Date Time Temp Pulse Resp B/P (MAP) Pulse Ox O2 Delivery O2 Flow Rate FiO2 05/16/19 07:00 112 22 160/57 (91) 100 05/16/19 06:00 110 20 147/63 (91) 100 05/16/19 05:00 110 22 151/64 (93) 100 05/16/19 04:00 98.0 109 22 157/67 (97) 100 05/16/19 04:00 T-piece 5.0 T-piece 5.0 T-piece 5.0 T-piece 5.0 05/16/19 04:00 111 05/16/19 04:00 5.0 28 05/16/19 03:00 109 22 153/67 (95) 100 05/16/19 02:00 110 23 185/91 (122) 100 05/16/19 01:03 100 T-Piece 5.0 28 05/16/19 01:00 107 23 152/67 (95) 99 05/16/19 00:00 5.0 28 05/16/19 00:00 104 05/16/19 00:00 98.8 106 21 165/69 (101) 100 05/16/19 00:00 T-piece 5.0 T-piece 5.0 T-piece 5.0 T-piece 5.0 05/15/19 23:00 106 22 148/64 (92) 100 05/15/19 22:00 105 20 155/69 (97) 100 05/15/19 21:00 104 20 149/106 (120) 100 05/15/19 20:00 98.4 104 21 132/68 (89) 100 05/15/19 20:00 104 05/15/19 20:00 T-piece 5.0 T-piece 5.0 T-piece 5.0 T-piece 5.0 05/15/19 20:00 5.0 28 05/15/19 19:14 100 T-Piece 5.0 28 05/15/19 19:00 103 20 142/77 (98) 100 05/15/19 18:54 104 22 100 T-Piece 5.0 28 102 21 100 05/15/19 18:00 105 21 119/60 (79) 100 05/15/19 17:00 103 20 140/64 (89) 100 05/15/19 16:00 5.0 28 05/15/19 16:00 T-piece 5.0 T-piece 5.0 T-piece 5.0 T-piece 5.0 05/15/19 16:00 107 05/15/19 16:00 99.1 108 22 129/58 (81) 99 05/15/19 15:00 110 24 150/100 (117) 100 05/15/19 14:52 109 22 100 T-Piece 5.0 28 109 22 99 05/15/19 14:00 109 22 138/52 (80) 100 05/15/19 13:13 100 T-Piece 5.0 28 05/15/19 13:00 108 20 151/61 (91) 100 05/15/19 12:00 5.0 28 05/15/19 12:00 98.8 110 23 133/52 (79) 100 05/15/19 12:00 T-piece 5.0 T-piece 5.0 T-piece 5.0 T-piece 5.0 05/15/19 12:00 109 05/15/19 11:00 111 22 146/58 (87) 98 05/15/19 10:31 110 22 100 T-Piece 5.0 28 108 24 100 05/15/19 10:00 108 22 118/55 (76) 99 Intake and Output 05/15/19 05/16/19 19:00 07:00 Intake Total 1890 ml 1570 ml Output Total 700 ml 1400 ml Balance 1190 ml 170 ml IV Total 1170 ml 850 ml Tube Feeding 720 ml 720 ml Output Urine Total 500 ml 1100 ml Gastric Drainage Total 200 ml 300 ml # Voids 1 # Bowel Movements 100 Objective WDWN NAD contracted off vent reduced breath sounds bilaterally with noted rhonchi [id number] tachy without MRG NABS nontender no HSM no CC trace edema same nonfocal nonverbal trach and gt reviewed and edited Microbiology Date/Time Source Procedure Growth Status 05/13/19 12:40 Blood Blood Culture - Preliminary YEAST Resulted Current Medications Medications (Trade) Dose Ordered Sig/Maicol Route PRN Reason Start Time Stop Time Status Last Admin Dose Admin Acetaminophen (Tylenol) 650 mg Q4H PRN RECTAL T>100.5 / Mild Pain 05/07/19 09:45 06/06/19 09:44 05/07/19 10:13 Albuterol/ Ipratropium (Albuterol/ Ipratropium) 3 ml Q4HRT HHN 05/16/19 07:40 05/21/19 07:39 Atropine Sulfate (Atropine Opth Adriana) 1 drop Q6HR SL 05/11/19 00:00 06/10/19 08:59 05/16/19 06:04 Heparin Sodium (Porcine) (Heparin 5000 units/ml) 5,000 units EVERY 12 HOURS SUBQ 05/01/19 21:00 05/31/19 20:59 05/16/19 08:35 Hydralazine HCl (Apresoline) 10 mg Q4H PRN IV For High Blood Pressure 05/11/19 05:45 06/10/19 05:44 05/12/19 00:08 Levetiracetam (Keppra) 500 mg Q12HR GT 05/01/19 21:00 05/28/19 08:59 05/16/19 08:34 Linezolid 300 ml @ 300 mls/hr Q12HR@1000,2200 IVPB 05/11/19 12:00 05/18/19 23:59 05/15/19 22:06 Meropenem 1 gm/ Sodium Chloride 110 ml @ 220 mls/hr Q12HR@1000,2200 IVPB 05/11/19 12:00 05/18/19 23:59 05/15/19 22:06 Micafungin Sodium 100 mg/Sodium Chloride 110 ml @ 110 mls/hr Q24H IVPB 05/15/19 12:00 05/22/19 11:59 05/15/19 12:54 Pantoprazole (Protonix) 40 mg DAILY IVP 05/15/19 18:15 06/14/19 18:14 05/16/19 08:34 Polymyxin B Sulfate 875359 units/Dextrose 550 ml @ 550 mls/hr Q12HR IV 05/11/19 13:00 05/18/19 23:59 05/16/19 08:52 Amaury Chan MD May 16, 2019 09:34
[2019-05-16] MEDS: Meropenem 1gm/NS 110ml IVPB SCH ×4 (10:10→22:03)
--- NOTE | 2019-05-16 10:21 | NUR ---
RESPIRATORY NOTE: ABG drawn. Results posted. JEANNINE Delgado notified.
--- NOTE | 2019-05-16 10:30 | NUR ---
NURSE NOTES: Dr Cortez at bedside assessing pt and noted pt VS, states he will review pt's meds.
[2019-05-16] MEDS: Linezolid 600mg/300mL Premix IVPB SCH ×2 (10:49→22:30)
--- NOTE | 2019-05-16 11:02 | Nephrology Progress Note ---
Assessment/Plan Problem List: (1) Acute renal failure (ARF) Assessment: Cr stable (2) Chronic respiratory failure (3) Anemia (4) Sepsis Assessment Acute renal failure Respiratory failure - Trach Low Mag- Low k , Low Na Anemia UTI / Sepsis Proteinuria / HypoAlbuminemia high Trigs Sz decubs bed bound DNR Plan remains on 4 antibiotics Transfused 05/09 has JT bolus Albumin as needed K and Mag and Phos supplement as needed Hydrate as needed Urine studies avoid Nephrotoxics mag K Phos supplements as needed monitor renal parameters Subjective ROS Limited/Unobtainable: Yes Objective Objective Last 24 Hour Vital Signs Date Time Temp Pulse Resp B/P (MAP) Pulse Ox O2 Delivery O2 Flow Rate FiO2 05/16/19 10:00 111 22 132/51 (78) 99 05/16/19 09:00 114 23 141/49 (79) 99 05/16/19 08:00 5.0 28 05/16/19 08:00 97.9 114 24 117/72 (87) 98 05/16/19 08:00 111 05/16/19 07:42 100 T-Piece 5.0 28 05/16/19 07:00 112 22 160/57 (91) 100 05/16/19 06:00 110 20 147/63 (91) 100 05/16/19 05:00 110 22 151/64 (93) 100 05/16/19 04:00 98.0 109 22 157/67 (97) 100 05/16/19 04:00 T-piece 5.0 T-piece 5.0 T-piece 5.0 T-piece 5.0 05/16/19 04:00 111 05/16/19 04:00 5.0 28 05/16/19 03:00 109 22 153/67 (95) 100 05/16/19 02:00 110 23 185/91 (122) 100 05/16/19 01:03 100 T-Piece 5.0 28 05/16/19 01:00 107 23 152/67 (95) 99 05/16/19 00:00 5.0 28 05/16/19 00:00 104 05/16/19 00:00 98.8 106 21 165/69 (101) 100 05/16/19 00:00 T-piece 5.0 T-piece 5.0 T-piece 5.0 T-piece 5.0 05/15/19 23:00 106 22 148/64 (92) 100 05/15/19 22:00 105 20 155/69 (97) 100 05/15/19 21:00 104 20 149/106 (120) 100 05/15/19 20:00 98.4 104 21 132/68 (89) 100 05/15/19 20:00 104 05/15/19 20:00 T-piece 5.0 T-piece 5.0 T-piece 5.0 T-piece 5.0 05/15/19 20:00 5.0 28 05/15/19 19:14 100 T-Piece 5.0 28 05/15/19 19:00 103 20 142/77 (98) 100 05/15/19 18:54 104 22 100 T-Piece 5.0 28 102 21 100 05/15/19 18:00 105 21 119/60 (79) 100 05/15/19 17:00 103 20 140/64 (89) 100 05/15/19 16:00 5.0 28 05/15/19 16:00 T-piece 5.0 T-piece 5.0 T-piece 5.0 T-piece 5.0 05/15/19 16:00 107 05/15/19 16:00 99.1 108 22 129/58 (81) 99 05/15/19 15:00 110 24 150/100 (117) 100 05/15/19 14:52 109 22 100 T-Piece 5.0 28 109 22 99 05/15/19 14:00 109 22 138/52 (80) 100 05/15/19 13:13 100 T-Piece 5.0 28 05/15/19 13:00 108 20 151/61 (91) 100 05/15/19 12:00 5.0 28 05/15/19 12:00 98.8 110 23 133/52 (79) 100 05/15/19 12:00 T-piece 5.0 T-piece 5.0 T-piece 5.0 T-piece 5.0 05/15/19 12:00 109 Intake and Output 05/15/19 05/16/19 19:00 07:00 Intake Total 1890 ml 1570 ml Output Total 700 ml 1400 ml Balance 1190 ml 170 ml IV Total 1170 ml 850 ml Tube Feeding 720 ml 720 ml Output Urine Total 500 ml 1100 ml Gastric Drainage Total 200 ml 300 ml # Voids 1 # Bowel Movements 100 Laboratory Tests 05/16/19 10:11: Arterial Blood pH 7.502H, Arterial Blood Partial Pressure CO2 43.1, Arterial Blood Partial Pressure O2 144.1H, Arterial Blood HCO3 33.0H, Arterial Blood Oxygen Saturation 98.6, Arterial Blood Base Excess 9H, Murphy Test Positive Height (Feet): 5 Height (Inches): 3.00 Weight (Pounds): 135 General Appearance: no apparent distress EENT: other - trach to O2 Cardiovascular: tachycardia Respiratory/Chest: decreased breath sounds Abdomen: soft Objective no change Eric Cortez MD May 16, 2019 11:02
--- NOTE | 2019-05-16 11:28 | NUR ---
NURSE NOTES: ABG results forwarded to Dr. Chan, no new orders received.
--- NOTE | 2019-05-16 11:50 | General Progress Note ---
Assessment/Plan Problem List: (1) Seizure ICD Codes: R56.9 - Unspecified convulsions SNOMED: 16035026 (2) Anemia ICD Codes: D64.9 - Anemia, unspecified SNOMED: 544581809 Qualifiers: Qualified Codes: D64.9 - Anemia, unspecified (3) Sepsis ICD Codes: A41.9 - Sepsis, unspecified organism SNOMED: 59701337, 049095169 Qualifiers: Qualified Codes: A41.9 - Sepsis, unspecified organism (4) Respiratory failure with hypoxia ICD Codes: J96.91 - Respiratory failure, unspecified with hypoxia SNOMED: 80299457036430322 Qualifiers: Qualified Codes: J96.21 - Acute and chronic respiratory failure with hypoxia (5) HCAP (healthcare-associated pneumonia) ICD Codes: J18.9 - Pneumonia, unspecified organism SNOMED: 405304456, 357620940 (6) Sacral decubitus ulcer ICD Codes: L89.159 - Pressure ulcer of sacral region, unspecified stage SNOMED: 790507636 (7) HTN (hypertension) ICD Codes: I10 - Essential (primary) hypertension SNOMED: 26053511 (8) Chronic vegetative state ICD Codes: R40.3 - Persistent vegetative state SNOMED: 06692651 (9) Chronic respiratory failure ICD Codes: J96.10 - Chronic respiratory failure, unspecified whether with hypoxia or hypercapnia SNOMED: 49500111 (10) Limited mobility ICD Codes: Z74.09 - Other reduced mobility SNOMED: 4212121 Status: stable, progressing Assessment/Plan: iv abx per id monitor for bleeding vent as needed resp rx suctioning IV lasix x1 replace mg j tube feeds g port to gravity skin care sz rx bowel regime Subjective ROS Limited/Unobtainable: No Constitutional: Reports: malaise, weakness HEENT: Reports: no symptoms Cardiovascular: Reports: no symptoms Respiratory: Reports: cough, shortness of breath, sputum Gastrointestinal/Abdominal: Reports: difficulty swallowing Genitourinary: Reports: no symptoms Neurologic/Psychiatric: Reports: pre-existing deficit, seizure Endocrine: Reports: no symptoms Hematologic/Lymphatic: Reports: no symptoms Allergies: Coded Allergies: CODEINE (Verified Allergy, Unknown, HIVES, 09/15/09) All Systems: reviewed and negative except above Subjective no events. seems more congested. HR elevated. no fever or chills. tolerating feeds. tachycardic. poor iv access. Objective Last 24 Hour Vital Signs Date Time Temp Pulse Resp B/P (MAP) Pulse Ox O2 Delivery O2 Flow Rate FiO2 05/16/19 11:03 104 23 100 T-Piece 5.0 28 110 21 100 05/16/19 11:00 110 22 152/67 (95) 100 05/16/19 10:00 111 22 132/51 (78) 99 05/16/19 09:00 114 23 141/49 (79) 99 05/16/19 08:00 5.0 28 05/16/19 08:00 97.9 114 24 117/72 (87) 98 05/16/19 08:00 111 05/16/19 08:00 T-piece 5.0 T-piece 5.0 T-piece 5.0 T-piece 5.0 05/16/19 07:42 100 T-Piece 5.0 28 05/16/19 07:00 112 22 160/57 (91) 100 05/16/19 06:00 110 20 147/63 (91) 100 05/16/19 05:00 110 22 151/64 (93) 100 05/16/19 04:00 98.0 109 22 157/67 (97) 100 05/16/19 04:00 T-piece 5.0 T-piece 5.0 T-piece 5.0 T-piece 5.0 05/16/19 04:00 111 05/16/19 04:00 5.0 28 05/16/19 03:00 109 22 153/67 (95) 100 05/16/19 02:00 110 23 185/91 (122) 100 05/16/19 01:03 100 T-Piece 5.0 28 05/16/19 01:00 107 23 152/67 (95) 99 05/16/19 00:00 5.0 28 05/16/19 00:00 104 05/16/19 00:00 98.8 106 21 165/69 (101) 100 05/16/19 00:00 T-piece 5.0 T-piece 5.0 T-piece 5.0 T-piece 5.0 05/15/19 23:00 106 22 148/64 (92) 100 05/15/19 22:00 105 20 155/69 (97) 100 05/15/19 21:00 104 20 149/106 (120) 100 05/15/19 20:00 98.4 104 21 132/68 (89) 100 05/15/19 20:00 104 05/15/19 20:00 T-piece 5.0 T-piece 5.0 T-piece 5.0 T-piece 5.0 05/15/19 20:00 5.0 28 05/15/19 19:14 100 T-Piece 5.0 28 05/15/19 19:00 103 20 142/77 (98) 100 05/15/19 18:54 104 22 100 T-Piece 5.0 28 102 21 100 05/15/19 18:00 105 21 119/60 (79) 100 05/15/19 17:00 103 20 140/64 (89) 100 05/15/19 16:00 5.0 28 05/15/19 16:00 T-piece 5.0 T-piece 5.0 T-piece 5.0 T-piece 5.0 05/15/19 16:00 107 05/15/19 16:00 99.1 108 22 129/58 (81) 99 05/15/19 15:00 110 24 150/100 (117) 100 05/15/19 14:52 109 22 100 T-Piece 5.0 28 109 22 99 05/15/19 14:00 109 22 138/52 (80) 100 05/15/19 13:13 100 T-Piece 5.0 28 05/15/19 13:00 108 20 151/61 (91) 100 05/15/19 12:00 5.0 28 05/15/19 12:00 98.8 110 23 133/52 (79) 100 05/15/19 12:00 T-piece 5.0 T-piece 5.0 T-piece 5.0 T-piece 5.0 05/15/19 12:00 109 Intake and Output 05/15/19 05/16/19 19:00 07:00 Intake Total 1890 ml 1570 ml Output Total 700 ml 1400 ml Balance 1190 ml 170 ml IV Total 1170 ml 850 ml Tube Feeding 720 ml 720 ml Output Urine Total 500 ml 1100 ml Gastric Drainage Total 200 ml 300 ml # Voids 1 # Bowel Movements 100 Laboratory Tests 05/16/19 10:11: Arterial Blood pH 7.502H, Arterial Blood Partial Pressure CO2 43.1, Arterial Blood Partial Pressure O2 144.1H, Arterial Blood HCO3 33.0H, Arterial Blood Oxygen Saturation 98.6, Arterial Blood Base Excess 9H, Murphy Test Positive Height (Feet): 5 Height (Inches): 3.00 Weight (Pounds): 135 Objective General Appearance: WD/WN, confused. on trach collar Neck: supple Cardiovascular: normal rate, regular rhythm Respiratory/Chest: chest wall non-tender, rhonchi - bilaterally(minimal) Abdomen: normal bowel sounds, non tender, soft, no organomegaly Edema: no edema noted Arm (L), no edema noted Arm (R), no edema noted Leg (L), no edema noted Leg (R), no edema noted Pedal (L), no edema noted Pedal (R), no edema noted Generalized Neurologic: disoriented, unresponsive, aphasia Irvin Beltrán MD May 16, 2019 11:50
--- NOTE | 2019-05-16 11:54 | NUR ---
NURSE NOTES: Spoke with Dr Vaughan over phone, informed him pt's abdomen is mildly distended, received order for STAT KUB and C-diff test for stool. orders placed.
--- NOTE | 2019-05-16 12:00 | NUR ---
NURSE NOTES: Pt suctioned and oral provided. Head to toe assessment performed and charted. Pt repositioned. No acute distress noted at this time. Will continue to monitor. Addendum: 05/16/19 at 1909 by Sandy Chi RN Late entry: GT site care provided, the skin is without redness or drainage.
[2019-05-16] MEDS: MICAFUNGIN IVPB SCH (12:57)
[2019-05-16] MEDS: NS IVPB SCH (12:57)
--- NOTE | 2019-05-16 13:00 | NUR ---
NURSE NOTES: C-diff collected and sent down to lab.
--- NOTE | 2019-05-16 14:00 | NUR ---
NURSE NOTES: Pt repositioned and suctioned. GT and JT flushed with 60 cc H20 each. No acute distress noted. Will continue to monitor. Addendum: 05/16/19 at 1956 by Sandy Chi RN Amendment: GT flushed with 100 cc and JT with 150 cc H20.
--- NOTE | 2019-05-16 15:06 | Diagnostic Imaging Report ---
EXAM: XR Chest, 1 View CLINICAL HISTORY: SCREEN TECHNIQUE: Frontal view of the chest. COMPARISON: Chest x-ray dated 05/07/19 FINDINGS: Lungs: Persistent streaky bilateral perihilar interstitial markings. Pleural space: Unremarkable. The costophrenic angles are sharp. No visible pneumothorax. Heart: Unremarkable. No cardiomegaly. Mediastinum: Unremarkable. Bones/joints: Unremarkable. Vasculature: Atherosclerotic calcifications are noted within the aortic arch. Tubes, lines and devices: Stable positioning of the tracheostomy tube. Telemetry leads overlie the thorax. IMPRESSION: Persistent streaky bilateral perihilar interstitial markings. This is nonspecific but may represent pulmonary vascular congestion or interstitial pneumonitis.
--- NOTE | 2019-05-16 15:06 | Diagnostic Imaging Report ---
EXAM: XR Abdomen, 2 Views CLINICAL HISTORY: SCREEN TECHNIQUE: Frontal view of the abdomen/pelvis with upright view of the abdomen. COMPARISON: No relevant prior studies available. FINDINGS: Intraperitoneal space: No free air. Gastrointestinal tract: Nonspecific nonobstructive bowel gas pattern. Bones/joints: Mild degenerative changes throughout the visualized spine. Soft tissues: Radiodense clips in the left lower abdominal quadrant. Tubes, lines and devices: Stable positioning of a catheter overlying the left upper quadrant, likely a percutaneous gastrostomy tube. Other findings: Exam significantly degraded by x-ray underpenetration. IMPRESSION: 1. Exam significantly degraded by x-ray underpenetration. 2. Nonspecific nonobstructive bowel gas pattern.
--- NOTE | 2019-05-16 15:10 | NUR ---
NURSE NOTES: Dr Vaughan at bedside assessing pt
--- NOTE | 2019-05-16 15:13 | General Progress Note ---
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 - Anemia with OB (-) stools - Resp failure, s/p Trach - OBS, vegetative obtunded unresponsive state, bedbound with contracted extremities, - h/o minor GJ tube site irritation - poor Prognosis Recommendations - Not candidate for immune suppression at this time - abx per ID - PPI daily - Cristian BID - antibiotic ointment to GJT site PRN - aspiration precautions - elevate HOB - Vital AF 1.2 - transfuse to keep Hg > 7 - J tube feeds - G tube ---> LIS - check ESR --> elevated - further evaluation for autoimmune hepatitis (anti DNA, ASMA) - Check C Diff and KUB Subjective Allergies: Coded Allergies: CODEINE (Verified Allergy, Unknown, HIVES, 09/15/09) Subjective above noted called by RN re abd distention KUB and C diff ordered small vol (50-100 cc ) loose stool Objective Last 24 Hour Vital Signs Date Time Temp Pulse Resp B/P (MAP) Pulse Ox O2 Delivery O2 Flow Rate FiO2 05/16/19 14:00 108 21 118/49 (72) 100 05/16/19 13:26 100 T-Piece 5.0 28 05/16/19 13:00 112 21 123/47 (72) 99 05/16/19 12:00 5.0 28 05/16/19 12:00 T-piece 5.0 T-piece 5.0 T-piece 5.0 T-piece 5.0 05/16/19 12:00 113 05/16/19 12:00 98.5 118 18 149/65 (93) 99 05/16/19 11:03 104 23 100 T-Piece 5.0 28 110 21 100 05/16/19 11:00 110 22 152/67 (95) 100 05/16/19 10:00 111 22 132/51 (78) 99 05/16/19 09:00 114 23 141/49 (79) 99 05/16/19 08:00 5.0 28 05/16/19 08:00 97.9 114 24 117/72 (87) 98 05/16/19 08:00 111 05/16/19 08:00 T-piece 5.0 T-piece 5.0 T-piece 5.0 T-piece 5.0 05/16/19 07:42 100 T-Piece 5.0 28 05/16/19 07:00 112 22 160/57 (91) 100 05/16/19 06:00 110 20 147/63 (91) 100 05/16/19 05:00 110 22 151/64 (93) 100 05/16/19 04:00 98.0 109 22 157/67 (97) 100 05/16/19 04:00 T-piece 5.0 T-piece 5.0 T-piece 5.0 T-piece 5.0 05/16/19 04:00 111 05/16/19 04:00 5.0 28 05/16/19 03:00 109 22 153/67 (95) 100 05/16/19 02:00 110 23 185/91 (122) 100 05/16/19 01:03 100 T-Piece 5.0 28 05/16/19 01:00 107 23 152/67 (95) 99 05/16/19 00:00 5.0 28 05/16/19 00:00 104 05/16/19 00:00 98.8 106 21 165/69 (101) 100 05/16/19 00:00 T-piece 5.0 T-piece 5.0 T-piece 5.0 T-piece 5.0 05/15/19 23:00 106 22 148/64 (92) 100 05/15/19 22:00 105 20 155/69 (97) 100 05/15/19 21:00 104 20 149/106 (120) 100 05/15/19 20:00 98.4 104 21 132/68 (89) 100 05/15/19 20:00 104 05/15/19 20:00 T-piece 5.0 T-piece 5.0 T-piece 5.0 T-piece 5.0 05/15/19 20:00 5.0 28 05/15/19 19:14 100 T-Piece 5.0 28 05/15/19 19:00 103 20 142/77 (98) 100 05/15/19 18:54 104 22 100 T-Piece 5.0 28 102 21 100 05/15/19 18:00 105 21 119/60 (79) 100 05/15/19 17:00 103 20 140/64 (89) 100 05/15/19 16:00 5.0 28 05/15/19 16:00 T-piece 5.0 T-piece 5.0 T-piece 5.0 T-piece 5.0 05/15/19 16:00 107 05/15/19 16:00 99.1 108 22 129/58 (81) 99 Intake and Output 05/15/19 05/16/19 19:00 07:00 Intake Total 1890 ml 1570 ml Output Total 700 ml 1400 ml Balance 1190 ml 170 ml IV Total 1170 ml 850 ml Tube Feeding 720 ml 720 ml Output Urine Total 500 ml 1100 ml Gastric Drainage Total 200 ml 300 ml # Voids 1 # Bowel Movements 100 Laboratory Tests 05/16/19 10:11: Arterial Blood pH 7.502H, Arterial Blood Partial Pressure CO2 43.1, Arterial Blood Partial Pressure O2 144.1H, Arterial Blood HCO3 33.0H, Arterial Blood Oxygen Saturation 98.6, Arterial Blood Base Excess 9H, Murphy Test Positive Height (Feet): 5 Height (Inches): 3.00 Weight (Pounds): 135 Objective Debilitated AA woman non-verbal, obtunded NCAT (+) trach coarse BS RR obese abd, (+) GJT, (+) (L) trunk edema no edema (+) contractured extremities Celio Vaughan MD May 16, 2019 15:13
[2019-05-16] MEDS ORDERED: Tubing IV Secondary IV ONE (15:58)
--- NOTE | 2019-05-16 16:00 | NUR ---
NURSE NOTES: Pt repositioned, oral care provided, pt suction. no acute distress noted. head to toe assessment performed and charted. Will continue to monitor.
--- NOTE | 2019-05-16 18:00 | NUR ---
NURSE NOTES: Pt repositioned and suctioned, no acute distress noted at this time. Will continue to monitor.
--- NOTE | 2019-05-16 19:09 | NUR ---
HAND-OFF: Report given to JEANNINE Church. Pt in no acute distress.
--- NOTE | 2019-05-16 19:10 | NUR ---
NURSE NOTES: Endorsement received from JEANNINE Delgado. Patient opens eyes, does not track. Shiley XLT receiving 28% on cool aerosol. With GJ tube. G tube connected to low intermittent suction. J tube receiving Vital 1.2 at 60ml/hr. Purewick in place. With Right breast g24 heplock and right foot g24. On P200 mattress. On seizure precautions. Bed locked and in low position. Call light within reach. Bed alarm on. Will continue to monitor.
--- NOTE | 2019-05-16 22:00 | NUR ---
NURSE NOTES: Secretions suctioned as needed. No acute events
[2019-05-17] VITALS (24 sets, daily range): BP systolic 98–142; BP diastolic 34–68
--- NOTE | 2019-05-17 | NUR ---
NURSE NOTES: Sinus tach on the monitor. No shortness of breath. No sign of pain or discomfort.
--- NOTE | 2019-05-17 02:00 | NUR ---
NURSE NOTES: No acute distress. Vital signs stable.
[2019-05-17] MEDS: Albuterol/Ipratropium 3ml neb HHN SCH ×6 (03:51→23:39)
--- NOTE | 2019-05-17 05:01 | NUR ---
NURSE NOTES: bed bath, oral care, change of linens done
--- NOTE | 2019-05-17 06:55 | NUR ---
HAND-OFF: Report given to JEANNINE Delgado per SBAR.
--- NOTE | 2019-05-17 06:55 | NUR ---
NURSE NOTES: Pt received from JEANNINE Church without cardiopulmonary distress noted. Pt is asleep in bed, obtunded, opens when called by name or shaken, pupils are equal and round 4mm and sluggish to light reaction. 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 radial pulses palpable 3+ bilaterally and dorsalis pedis pulses 3+ bilaterally. cap refill< 3 sec. Pt noted with T-piece on 5L O2 with FiO2 28%. Lung sounds noted diminished to bilat lower lung lobes. Bilat upper lung lobes noted with rhonchi. GT noted with dry and intact dressing hooked to low intermittent suction with brown, cloudy gastric secretions. JT running Vital AF 1.2 at 60 cc/hr. no nausea or vomiting noted at this time. Pt suctioned. Abd is round and slightly firm (Dr Vaughan made aware yesterday and came to assess pt). Active bowel sounds noted to all quadrants. Purewick noted draining yellow urine. Skin alterations noted. Pt has a right foot 24g IV running NS TKO at 5cc/hr. Bed in lowest position, alarm on, side rails up x 2 and padded per seizure precaution, call light within reach, will continue to monitor. Addendum: 05/17/19 at 0826 by Sandy Chi RN Pt also has a rectal tube draining brown liquid stool
[2019-05-17 07:36] LABS: BASOPHILS % (AUTO) 0.3 % (0.0-2.0); HEMOGLOBIN 8.7 G/DL (12.0-16.0); LYMPHOCYTES % (AUTO) 17.4 % (20.0-45.0); MEAN CORPUSCULAR VOLUME 87 FL (80-99); MONOCYTES % (AUTO) 4.8 % (1.0-10.0); NEUTROPHILS % (AUTO) 76.5 % (45.0-75.0); PLATELET COUNT 258 K/UL (150-450); RED BLOOD COUNT 2.99 M/UL (4.20-5.40); WHITE BLOOD COUNT 13.1 K/UL (4.8-10.8)
[2019-05-17] MEDS: D5W IV SCH (08:05)
[2019-05-17] MEDS: POLYMYXIN B SULFATE IV SCH (08:05)
[2019-05-17] MEDS: levETIRAcetam 500mg/5ml Liquid GT SCH ×2 (08:09→20:23)
[2019-05-17] MEDS: Pantoprazole Inj IVP SCH (08:09)
[2019-05-17] MEDS: Heparin 5000 units/ml inj SUBQ SCH ×2 (08:11→20:24)
[2019-05-17 08:40] LABS: ALANINE AMINOTRANSFERASE 135 U/L (12-78); ALBUMIN 2.1 G/DL (3.4-5.0); ALBUMIN/GLOBULIN RATIO 0.4 (1.0-2.7); ALKALINE PHOSPHATASE 302 U/L (46-116); ANION GAP 12 mmol/L (5-15); ASPARTATE AMINO TRANSFERASE 64 U/L (15-37); BILIRUBIN,TOTAL 0.4 MG/DL (0.2-1.0); BLOOD UREA NITROGEN 33 mg/dL (7-18); CALCIUM 9.8 MG/DL (8.5-10.1); CARBON DIOXIDE 28 MMOL/L (21-32); CHLORIDE 94 MMOL/L (98-107); CREATININE 0.8 MG/DL (0.55-1.30); POTASSIUM 4.7 MMOL/L (3.5-5.1); SODIUM 134 MMOL/L (136-145)
[2019-05-17] MEDS: Linezolid 600mg/300mL Premix IVPB SCH (09:00)
[2019-05-17] MEDS: Meropenem 1gm/NS 110ml IVPB SCH ×2 (09:01)
--- NOTE | 2019-05-17 09:12 | NUR ---
NURSE NOTES: Dr Vaughan at bedside assessing pt, abdomen and rectal tube output noted, I informed him that C-diff results are negative, he is also aware of recent KUB results. No new orders at this time.
--- NOTE | 2019-05-17 10:00 | NUR ---
Pt suctioned and repositioned. Dr Vaughan and Dana came to see pt today. No acute distress noted. Will continue to monitor.
[2019-05-17] MEDS ORDERED: Tubing IV Secondary IV ONE ×2 (10:23→10:31)
[2019-05-17] MEDS ORDERED: NS 275ml ONE ×2 (10:23→10:31)
--- NOTE | 2019-05-17 10:41 | Nephrology Progress Note ---
Assessment/Plan Problem List: (1) Acute renal failure (ARF) Assessment: Cr stable (2) Chronic respiratory failure (3) Anemia (4) Sepsis Assessment Acute renal failure Respiratory failure - Trach Low Mag- Low k , Low Na Anemia UTI / Sepsis Proteinuria / HypoAlbuminemia high Trigs Sz decubs bed bound DNR Plan remains on 4 antibiotics Transfused 05/09 has JT bolus Albumin as needed K and Mag and Phos supplement as needed Hydrate as needed Urine studies avoid Nephrotoxics mag K Phos supplements as needed monitor renal parameters Subjective ROS Limited/Unobtainable: Yes Objective Objective Last 24 Hour Vital Signs Date Time Temp Pulse Resp B/P (MAP) Pulse Ox O2 Delivery O2 Flow Rate FiO2 05/17/19 10:00 112 23 99/40 (59) 98 05/17/19 09:00 112 24 109/51 (70) 98 05/17/19 08:00 T-piece 5.0 T-piece 5.0 T-piece 5.0 05/17/19 08:00 111 05/17/19 08:00 98.3 113 21 123/56 (78) 96 05/17/19 08:00 5.0 28 05/17/19 07:00 109 21 98/34 (55) 100 05/17/19 06:48 100 T-Piece 5.0 28 05/17/19 06:48 111 20 100 T-Piece 5.0 28 109 22 100 05/17/19 06:00 108 21 130/57 (81) 100 05/17/19 05:00 112 19 129/57 (81) 100 05/17/19 04:00 98.1 109 22 141/60 (87) 99 05/17/19 04:00 T-piece 5.0 T-piece 5.0 05/17/19 04:00 113 05/17/19 04:00 5.0 28 05/17/19 03:51 108 21 100 T-Piece 5.0 28 108 20 100 05/17/19 03:00 108 21 122/68 (86) 100 05/17/19 02:00 112 24 127/55 (79) 98 05/17/19 01:15 100 T-Piece 5.0 28 05/17/19 01:00 112 21 124/54 (77) 100 05/17/19 00:00 T-piece 5.0 T-piece 5.0 05/17/19 00:00 5.0 28 05/17/19 00:00 109 05/17/19 00:00 98.0 112 28 131/53 (79) 97 05/16/19 23:00 106 24 120/55 (76) 100 05/16/19 22:45 108 21 100 T-Piece 5.0 28 106 23 99 05/16/19 22:00 106 25 110/55 (73) 98 05/16/19 21:00 108 23 95/48 (64) 95 05/16/19 20:00 110 05/16/19 20:00 98.2 109 20 116/45 (68) 100 05/16/19 20:00 T-piece 5.0 T-piece 5.0 05/16/19 20:00 5.0 28 05/16/19 19:10 110 21 100 T-Piece 5.0 28 107 22 100 05/16/19 19:10 100 T-Piece 5.0 28 05/16/19 19:00 111 18 117/43 (67) 97 05/16/19 18:00 104 23 133/62 (85) 100 05/16/19 17:00 107 17 130/52 (78) 99 05/16/19 16:00 105 05/16/19 16:00 98.3 106 21 98/45 (62) 97 05/16/19 16:00 T-piece 5.0 T-piece 5.0 T-piece 5.0 05/16/19 16:00 5.0 28 05/16/19 15:10 107 21 100 T-Piece 5.0 28 105 20 100 05/16/19 15:00 106 20 98/46 (63) 99 05/16/19 14:00 108 21 118/49 (72) 100 05/16/19 13:26 100 T-Piece 5.0 28 05/16/19 13:00 112 21 123/47 (72) 99 05/16/19 12:00 5.0 28 05/16/19 12:00 T-piece 5.0 T-piece 5.0 T-piece 5.0 05/16/19 12:00 113 05/16/19 12:00 98.5 118 18 149/65 (93) 99 05/16/19 11:03 104 23 100 T-Piece 5.0 28 110 21 100 05/16/19 11:00 110 22 152/67 (95) 100 Intake and Output 05/16/19 05/17/19 19:00 07:00 Intake Total 2740 ml 2430 ml Output Total 1850 ml 1150 ml Balance 890 ml 1280 ml Free Water 300 ml 300 ml IV Total 1270 ml 960 ml Tube Feeding 720 ml 720 ml Other 450 ml 450 ml Output Urine Total 1500 ml 800 ml Stool Total 50 ml 50 ml Gastric Drainage Total 300 ml 300 ml # Voids 1 Laboratory Tests 05/17/19 05:34: White Blood Count 13.1H, Red Blood Count 2.99L, Hemoglobin 8.7L, Hematocrit 26.0L, Mean Corpuscular Volume 87, Mean Corpuscular Hemoglobin 29.0, Mean Corpuscular Hemoglobin Concent 33.3, Red Cell Distribution Width 15.0H, Platelet Count 258, Mean Platelet Volume 5.2L, Neutrophils (%) (Auto) 76.5H, Lymphocytes (%) (Auto) 17.4L, Monocytes (%) (Auto) 4.8, Eosinophils (%) (Auto) 1.0, Basophils (%) (Auto) 0.3, Sodium Level 134L, Potassium Level 4.7, Chloride Level 94L, Carbon Dioxide Level 28, Anion Gap 12, Blood Urea Nitrogen 33H, Creatinine 0.8, Estimat Glomerular Filtration Rate > 60, Glucose Level 101, Uric Acid 6.1, Calcium Level 9.8, Phosphorus Level 4.0, Magnesium Level 1.5L, Total Bilirubin 0.4, Aspartate Amino Transf (AST/SGOT) 64H, Alanine Aminotransferase (ALT/SGPT) 135H, Alkaline Phosphatase 302H, C-Reactive Protein , Quantitative 20.0H, Pro-B-Type Natriuretic Peptide 247H, Total Protein 7.8, Albumin 2.1L, Globulin 5.7, Albumin/Globulin Ratio 0.4L Height (Feet): 5 Height (Inches): 3.00 Weight (Pounds): 133 General Appearance: no apparent distress EENT: other - trach to O2 Respiratory/Chest: decreased breath sounds Abdomen: distended Objective no change Eric Cortez MD May 17, 2019 10:41
[2019-05-17] MEDS: NS IVPB SCH (11:00)
[2019-05-17] MEDS: MICAFUNGIN IVPB SCH (11:00)
--- NOTE | 2019-05-17 11:09 | Infectious Diseases Prog Note ---
Assessment/Plan Assessment/Plan A 1.Proteus pneumonia treated 2.Chronic respiratory failure 3. hypertension 4. CVA 5. dementia 6. sacral decubitus ulcer 7. rectal VRE colonization 8. Anemia 9. Proteus UTI 10. Acute renal failure 11. Sepsis with Klebsiella ( KPC), treated 12. New candidal sepsis P 1 continue Micafungin 2.Discontinue linezolid , meropenem & polymyxin Subjective ROS Limited/Unobtainable: Yes Constitutional: Denies: fever Allergies: Coded Allergies: CODEINE (Verified Allergy, Unknown, HIVES, 09/15/09) Objective Vital Signs Last 24 Hour Vital Signs Date Time Temp Pulse Resp B/P (MAP) Pulse Ox O2 Delivery O2 Flow Rate FiO2 05/17/19 10:00 112 23 99/40 (59) 98 05/17/19 09:00 112 24 109/51 (70) 98 05/17/19 08:00 T-piece 5.0 T-piece 5.0 T-piece 5.0 05/17/19 08:00 111 05/17/19 08:00 98.3 113 21 123/56 (78) 96 05/17/19 08:00 5.0 28 05/17/19 07:00 109 21 98/34 (55) 100 05/17/19 06:48 100 T-Piece 5.0 28 05/17/19 06:48 111 20 100 T-Piece 5.0 28 109 22 100 05/17/19 06:00 108 21 130/57 (81) 100 05/17/19 05:00 112 19 129/57 (81) 100 05/17/19 04:00 98.1 109 22 141/60 (87) 99 05/17/19 04:00 T-piece 5.0 T-piece 5.0 05/17/19 04:00 113 05/17/19 04:00 5.0 28 05/17/19 03:51 108 21 100 T-Piece 5.0 28 108 20 100 05/17/19 03:00 108 21 122/68 (86) 100 05/17/19 02:00 112 24 127/55 (79) 98 05/17/19 01:15 100 T-Piece 5.0 28 05/17/19 01:00 112 21 124/54 (77) 100 05/17/19 00:00 T-piece 5.0 T-piece 5.0 05/17/19 00:00 5.0 28 05/17/19 00:00 109 05/17/19 00:00 98.0 112 28 131/53 (79) 97 05/16/19 23:00 106 24 120/55 (76) 100 05/16/19 22:45 108 21 100 T-Piece 5.0 28 106 23 99 05/16/19 22:00 106 25 110/55 (73) 98 05/16/19 21:00 108 23 95/48 (64) 95 05/16/19 20:00 110 05/16/19 20:00 98.2 109 20 116/45 (68) 100 05/16/19 20:00 T-piece 5.0 T-piece 5.0 05/16/19 20:00 5.0 28 05/16/19 19:10 110 21 100 T-Piece 5.0 28 107 22 100 05/16/19 19:10 100 T-Piece 5.0 28 05/16/19 19:00 111 18 117/43 (67) 97 05/16/19 18:00 104 23 133/62 (85) 100 05/16/19 17:00 107 17 130/52 (78) 99 05/16/19 16:00 105 05/16/19 16:00 98.3 106 21 98/45 (62) 97 05/16/19 16:00 T-piece 5.0 T-piece 5.0 T-piece 5.0 05/16/19 16:00 5.0 28 05/16/19 15:10 107 21 100 T-Piece 5.0 28 105 20 100 05/16/19 15:00 106 20 98/46 (63) 99 05/16/19 14:00 108 21 118/49 (72) 100 05/16/19 13:26 100 T-Piece 5.0 28 05/16/19 13:00 112 21 123/47 (72) 99 05/16/19 12:00 5.0 28 05/16/19 12:00 T-piece 5.0 T-piece 5.0 T-piece 5.0 05/16/19 12:00 113 05/16/19 12:00 98.5 118 18 149/65 (93) 99 Height (Feet): 5 Height (Inches): 3.00 Weight (Pounds): 133 HEENT: status post trach Respiratory/Chest: rhonchi - bilaterally, other - on T bar, secretions in tube Cardiovascular: tachycardia, other - Peripheral line Extremities: no edema Skin: ulcers Neurologic/Psychiatric: unresponsiveness, aphasia Microbiology Date/Time Source Procedure Growth Status 05/16/19 12:00 Stool Clostridium difficile Toxin Assay - Final Complete Laboratory Tests Test 05/17/19 05:34 White Blood Count 13.1 K/UL (4.8-10.8) H Red Blood Count 2.99 M/UL (4.20-5.40) L Hemoglobin 8.7 G/DL (12.0-16.0) L Hematocrit 26.0 % (37.0-47.0) L Mean Corpuscular Volume 87 FL (80-99) Mean Corpuscular Hemoglobin 29.0 PG (27.0-31.0) Mean Corpuscular Hemoglobin Concent 33.3 G/DL (32.0-36.0) Red Cell Distribution Width 15.0 % (11.6-14.8) H Platelet Count 258 K/UL (150-450) Mean Platelet Volume 5.2 FL (6.5-10.1) L Neutrophils (%) (Auto) 76.5 % (45.0-75.0) H Lymphocytes (%) (Auto) 17.4 % (20.0-45.0) L Monocytes (%) (Auto) 4.8 % (1.0-10.0) Eosinophils (%) (Auto) 1.0 % (0.0-3.0) Basophils (%) (Auto) 0.3 % (0.0-2.0) Sodium Level 134 MMOL/L (136-145) L Potassium Level 4.7 MMOL/L (3.5-5.1) Chloride Level 94 MMOL/L (98-107) L Carbon Dioxide Level 28 MMOL/L (21-32) Anion Gap 12 mmol/L (5-15) Blood Urea Nitrogen 33 mg/dL (7-18) H Creatinine 0.8 MG/DL (0.55-1.30) Estimat Glomerular Filtration Rate > 60 mL/min (>60) Glucose Level 101 MG/DL (74-106) Uric Acid 6.1 MG/DL (2.6-7.2) Calcium Level 9.8 MG/DL (8.5-10.1) Phosphorus Level 4.0 MG/DL (2.5-4.9) Magnesium Level 1.5 MG/DL (1.8-2.4) L Total Bilirubin 0.4 MG/DL (0.2-1.0) Aspartate Amino Transf (AST/SGOT) 64 U/L (15-37) H Alanine Aminotransferase (ALT/SGPT) 135 U/L (12-78) H Alkaline Phosphatase 302 U/L (46-116) H C-Reactive Protein, Quantitative 20.0 mg/dL (0.00-0.90) H Pro-B-Type Natriuretic Peptide 247 pg/mL (0-125) H Total Protein 7.8 G/DL (6.4-8.2) Albumin 2.1 G/DL (3.4-5.0) L Globulin 5.7 g/dL Albumin/Globulin Ratio 0.4 (1.0-2.7) L Current Medications Medications (Trade) Dose Ordered Sig/Maicol Route PRN Reason Start Time Stop Time Status Last Admin Dose Admin Acetaminophen (Tylenol) 650 mg Q4H PRN RECTAL T>100.5 / Mild Pain 05/07/19 09:45 06/06/19 09:44 05/07/19 10:13 Albuterol/ Ipratropium (Albuterol/ Ipratropium) 3 ml Q4HRT HHN 05/16/19 07:40 05/21/19 07:39 05/17/19 06:48 Atropine Sulfate (Atropine Opth Adriana) 1 drop Q6HR SL 05/11/19 00:00 06/10/19 08:59 05/17/19 05:47 Heparin Sodium (Porcine) (Heparin 5000 units/ml) 5,000 units EVERY 12 HOURS SUBQ 05/01/19 21:00 05/31/19 20:59 05/17/19 08:11 Hydralazine HCl (Apresoline) 10 mg Q4H PRN IV For High Blood Pressure 05/11/19 05:45 06/10/19 05:44 05/12/19 00:08 Levetiracetam (Keppra) 500 mg Q12HR GT 05/01/19 21:00 05/28/19 08:59 05/17/19 08:09 Linezolid 300 ml @ 300 mls/hr Q12HR@1000,2200 IVPB 05/11/19 12:00 05/18/19 23:59 05/17/19 09:00 Magnesium Sulfate 100 ml @ 100 mls/hr Q1H IVPB 05/17/19 10:45 05/17/19 14:44 05/17/19 10:49 Meropenem 1 gm/ Sodium Chloride 110 ml @ 220 mls/hr Q12HR@1000,2200 IVPB 05/11/19 12:00 05/18/19 23:59 05/17/19 09:01 Micafungin Sodium 100 mg/Sodium Chloride 110 ml @ 110 mls/hr Q24H IVPB 05/15/19 12:00 05/22/19 11:59 05/17/19 11:00 Pantoprazole (Protonix) 40 mg DAILY IVP 05/15/19 18:15 06/14/19 18:14 05/17/19 08:09 Polymyxin B Sulfate [id number] units/Dextrose 550 ml @ 550 mls/hr Q12HR IV 05/11/19 13:00 05/18/19 23:59 05/17/19 08:05 Chauncey Liriano MD May 17, 2019 11:09
--- NOTE | 2019-05-17 11:10 | Pulmonology Progress Note ---
Assessment/Plan Assessment/Plan Impression: Fungemia [facility]+ history of Pneumonia Trach, G tube, Hypertension, Cardiac disease, Dementia, Previous CVA, Seizure disorder, Respiratory failure with hypoxia Anemia, Sacral ulcer renal cyst chronic pulmonary congestion Plan antifungals antimicrobials ID following monitor for change; care reviewed recent cultures reviewed and ID noted monitor imaging for change Vent PRN monitor labs maintain reflux aspiration elevate head and monitor secretions monitor labs monitor vitals; and adjust meds DNR. No CPR. ICU care reviewed meds noted and updated; neb therapy off load as able nutrition/fees/ dietary as is; monitor residuals skin care management reviewed difficulty with placement all changes noted and discussed chronic management as able medications/laboratory data/nursing notes/ICU care reviewed in detail note reviewed and edited care discussed with RN and RT time spent x 40 minutes Subjective ROS Limited/Unobtainable: Yes Allergies: Coded Allergies: CODEINE (Verified Allergy, Unknown, HIVES, 09/15/09) Subjective overnight events noted; poor LOC multiple cultures noted now with fungemia; noted [facility] ICU care issues discussed bed bound and obtunded some congestion Objective Last 24 Hour Vital Signs Date Time Temp Pulse Resp B/P (MAP) Pulse Ox O2 Delivery O2 Flow Rate FiO2 05/17/19 10:00 112 23 99/40 (59) 98 05/17/19 09:00 112 24 109/51 (70) 98 05/17/19 08:00 T-piece 5.0 T-piece 5.0 T-piece 5.0 05/17/19 08:00 111 05/17/19 08:00 98.3 113 21 123/56 (78) 96 05/17/19 08:00 5.0 28 05/17/19 07:00 109 21 98/34 (55) 100 05/17/19 06:48 100 T-Piece 5.0 28 05/17/19 06:48 111 20 100 T-Piece 5.0 28 109 22 100 05/17/19 06:00 108 21 130/57 (81) 100 05/17/19 05:00 112 19 129/57 (81) 100 05/17/19 04:00 98.1 109 22 141/60 (87) 99 05/17/19 04:00 T-piece 5.0 T-piece 5.0 05/17/19 04:00 113 05/17/19 04:00 5.0 28 05/17/19 03:51 108 21 100 T-Piece 5.0 28 108 20 100 05/17/19 03:00 108 21 122/68 (86) 100 05/17/19 02:00 112 24 127/55 (79) 98 05/17/19 01:15 100 T-Piece 5.0 28 05/17/19 01:00 112 21 124/54 (77) 100 05/17/19 00:00 T-piece 5.0 T-piece 5.0 05/17/19 00:00 5.0 28 05/17/19 00:00 109 05/17/19 00:00 98.0 112 28 131/53 (79) 97 05/16/19 23:00 106 24 120/55 (76) 100 05/16/19 22:45 108 21 100 T-Piece 5.0 28 106 23 99 05/16/19 22:00 106 25 110/55 (73) 98 05/16/19 21:00 108 23 95/48 (64) 95 05/16/19 20:00 110 05/16/19 20:00 98.2 109 20 116/45 (68) 100 05/16/19 20:00 T-piece 5.0 T-piece 5.0 05/16/19 20:00 5.0 28 05/16/19 19:10 110 21 100 T-Piece 5.0 28 107 22 100 05/16/19 19:10 100 T-Piece 5.0 28 05/16/19 19:00 111 18 117/43 (67) 97 05/16/19 18:00 104 23 133/62 (85) 100 05/16/19 17:00 107 17 130/52 (78) 99 05/16/19 16:00 105 05/16/19 16:00 98.3 106 21 98/45 (62) 97 05/16/19 16:00 T-piece 5.0 T-piece 5.0 T-piece 5.0 05/16/19 16:00 5.0 28 05/16/19 15:10 107 21 100 T-Piece 5.0 28 105 20 100 05/16/19 15:00 106 20 98/46 (63) 99 05/16/19 14:00 108 21 118/49 (72) 100 05/16/19 13:26 100 T-Piece 5.0 28 05/16/19 13:00 112 21 123/47 (72) 99 05/16/19 12:00 5.0 28 05/16/19 12:00 T-piece 5.0 T-piece 5.0 T-piece 5.0 05/16/19 12:00 113 05/16/19 12:00 98.5 118 18 149/65 (93) 99 Intake and Output 05/16/19 05/17/19 19:00 07:00 Intake Total 2740 ml 2430 ml Output Total 1850 ml 1150 ml Balance 890 ml 1280 ml Free Water 300 ml 300 ml IV Total 1270 ml 960 ml Tube Feeding 720 ml 720 ml Other 450 ml 450 ml Output Urine Total 1500 ml 800 ml Stool Total 50 ml 50 ml Gastric Drainage Total 300 ml 300 ml # Voids 1 Objective WDWN NAD contracted off vent reduced breath sounds bilaterally with noted rhonchi [id number] tachy without MRG NABS nontender no HSM no CC trace edema same nonfocal nonverbal trach and gt reviewed and edited Microbiology Date/Time Source Procedure Growth Status 05/16/19 12:00 Stool Clostridium difficile Toxin Assay - Final Complete Laboratory Tests 05/17/19 05:34: White Blood Count 13.1H, Red Blood Count 2.99L, Hemoglobin 8.7L, Hematocrit 26.0L, Mean Corpuscular Volume 87, Mean Corpuscular Hemoglobin 29.0, Mean Corpuscular Hemoglobin Concent 33.3, Red Cell Distribution Width 15.0H, Platelet Count 258, Mean Platelet Volume 5.2L, Neutrophils (%) (Auto) 76.5H, Lymphocytes (%) (Auto) 17.4L, Monocytes (%) (Auto) 4.8, Eosinophils (%) (Auto) 1.0, Basophils (%) (Auto) 0.3, Sodium Level 134L, Potassium Level 4.7, Chloride Level 94L, Carbon Dioxide Level 28, Anion Gap 12, Blood Urea Nitrogen 33H, Creatinine 0.8, Estimat Glomerular Filtration Rate > 60, Glucose Level 101, Uric Acid 6.1, Calcium Level 9.8, Phosphorus Level 4.0, Magnesium Level 1.5L, Total Bilirubin 0.4, Aspartate Amino Transf (AST/SGOT) 64H, Alanine Aminotransferase (ALT/SGPT) 135H, Alkaline Phosphatase 302H, C-Reactive Protein , Quantitative 20.0H, Pro-B-Type Natriuretic Peptide 247H, Total Protein 7.8, Albumin 2.1L, Globulin 5.7, Albumin/Globulin Ratio 0.4L Current Medications Medications (Trade) Dose Ordered Sig/Maicol Route PRN Reason Start Time Stop Time Status Last Admin Dose Admin Acetaminophen (Tylenol) 650 mg Q4H PRN RECTAL T>100.5 / Mild Pain 05/07/19 09:45 06/06/19 09:44 05/07/19 10:13 Albuterol/ Ipratropium (Albuterol/ Ipratropium) 3 ml Q4HRT HHN 05/16/19 07:40 05/21/19 07:39 05/17/19 06:48 Atropine Sulfate (Atropine Opth Adriana) 1 drop Q6HR SL 05/11/19 00:00 06/10/19 08:59 05/17/19 05:47 Heparin Sodium (Porcine) (Heparin 5000 units/ml) 5,000 units EVERY 12 HOURS SUBQ 05/01/19 21:00 05/31/19 20:59 05/17/19 08:11 Hydralazine HCl (Apresoline) 10 mg Q4H PRN IV For High Blood Pressure 05/11/19 05:45 06/10/19 05:44 05/12/19 00:08 Levetiracetam (Keppra) 500 mg Q12HR GT 05/01/19 21:00 05/28/19 08:59 05/17/19 08:09 Linezolid 300 ml @ 300 mls/hr Q12HR@1000,2200 IVPB 05/11/19 12:00 05/18/19 23:59 05/17/19 09:00 Magnesium Sulfate 100 ml @ 100 mls/hr Q1H IVPB 05/17/19 10:45 05/17/19 14:44 05/17/19 10:49 Meropenem 1 gm/ Sodium Chloride 110 ml @ 220 mls/hr Q12HR@1000,2200 IVPB 05/11/19 12:00 05/18/19 23:59 05/17/19 09:01 Micafungin Sodium 100 mg/Sodium Chloride 110 ml @ 110 mls/hr Q24H IVPB 05/15/19 12:00 05/22/19 11:59 05/17/19 11:00 Pantoprazole (Protonix) 40 mg DAILY IVP 05/15/19 18:15 06/14/19 18:14 05/17/19 08:09 Polymyxin B Sulfate 708355 units/Dextrose 550 ml @ 550 mls/hr Q12HR IV 05/11/19 13:00 05/18/19 23:59 05/17/19 08:05 Amaury Chan MD May 17, 2019 11:09
--- NOTE | 2019-05-17 11:10 | General Progress Note ---
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 - Anemia with OB (-) stools - Resp failure, s/p Trach - OBS, vegetative obtunded unresponsive state, bedbound with contracted extremities - h/o minor GJ tube site irritation - poor Prognosis Recommendations - No plans for immune suppression at this time - abx per ID - PPI daily - Cristian BID - antibiotic ointment to GJT site PRN - aspiration precautions - elevate HOB - Vital AF 1.2 - transfuse to keep Hg > 7 - J tube feeds - G tube ---> LIS - check ESR --> elevated - further evaluation for autoimmune hepatitis (anti DNA, ASMA) Subjective Allergies: Coded Allergies: CODEINE (Verified Allergy, Unknown, HIVES, 09/15/09) Subjective above noted d/w RN C Diff (-) loose stools diminishing tolerating TF Objective Last 24 Hour Vital Signs Date Time Temp Pulse Resp B/P (MAP) Pulse Ox O2 Delivery O2 Flow Rate FiO2 05/17/19 10:00 112 23 99/40 (59) 98 05/17/19 09:00 112 24 109/51 (70) 98 05/17/19 08:00 T-piece 5.0 T-piece 5.0 T-piece 5.0 05/17/19 08:00 111 05/17/19 08:00 98.3 113 21 123/56 (78) 96 05/17/19 08:00 5.0 28 05/17/19 07:00 109 21 98/34 (55) 100 05/17/19 06:48 100 T-Piece 5.0 28 05/17/19 06:48 111 20 100 T-Piece 5.0 28 109 22 100 05/17/19 06:00 108 21 130/57 (81) 100 05/17/19 05:00 112 19 129/57 (81) 100 05/17/19 04:00 98.1 109 22 141/60 (87) 99 05/17/19 04:00 T-piece 5.0 T-piece 5.0 05/17/19 04:00 113 05/17/19 04:00 5.0 28 05/17/19 03:51 108 21 100 T-Piece 5.0 28 108 20 100 05/17/19 03:00 108 21 122/68 (86) 100 05/17/19 02:00 112 24 127/55 (79) 98 05/17/19 01:15 100 T-Piece 5.0 28 05/17/19 01:00 112 21 124/54 (77) 100 05/17/19 00:00 T-piece 5.0 T-piece 5.0 05/17/19 00:00 5.0 28 05/17/19 00:00 109 05/17/19 00:00 98.0 112 28 131/53 (79) 97 05/16/19 23:00 106 24 120/55 (76) 100 05/16/19 22:45 108 21 100 T-Piece 5.0 28 106 23 99 05/16/19 22:00 106 25 110/55 (73) 98 05/16/19 21:00 108 23 95/48 (64) 95 05/16/19 20:00 110 05/16/19 20:00 98.2 109 20 116/45 (68) 100 05/16/19 20:00 T-piece 5.0 T-piece 5.0 05/16/19 20:00 5.0 28 05/16/19 19:10 110 21 100 T-Piece 5.0 28 107 22 100 05/16/19 19:10 100 T-Piece 5.0 28 05/16/19 19:00 111 18 117/43 (67) 97 05/16/19 18:00 104 23 133/62 (85) 100 05/16/19 17:00 107 17 130/52 (78) 99 05/16/19 16:00 105 05/16/19 16:00 98.3 106 21 98/45 (62) 97 05/16/19 16:00 T-piece 5.0 T-piece 5.0 T-piece 5.0 05/16/19 16:00 5.0 28 05/16/19 15:10 107 21 100 T-Piece 5.0 28 105 20 100 05/16/19 15:00 106 20 98/46 (63) 99 2/15/20 14:00 108 21 118/49 (72) 100 05/16/19 13:26 100 T-Piece 5.0 28 05/16/19 13:00 112 21 123/47 (72) 99 05/16/19 12:00 5.0 28 05/16/19 12:00 T-piece 5.0 T-piece 5.0 T-piece 5.0 05/16/19 12:00 113 05/16/19 12:00 98.5 118 18 149/65 (93) 99 Intake and Output 05/16/19 05/17/19 19:00 07:00 Intake Total 2740 ml 2430 ml Output Total 1850 ml 1150 ml Balance 890 ml 1280 ml Free Water 300 ml 300 ml IV Total 1270 ml 960 ml Tube Feeding 720 ml 720 ml Other 450 ml 450 ml Output Urine Total 1500 ml 800 ml Stool Total 50 ml 50 ml Gastric Drainage Total 300 ml 300 ml # Voids 1 Laboratory Tests 05/17/19 05:34: White Blood Count 13.1H, Red Blood Count 2.99L, Hemoglobin 8.7L, Hematocrit 26.0L, Mean Corpuscular Volume 87, Mean Corpuscular Hemoglobin 29.0, Mean Corpuscular Hemoglobin Concent 33.3, Red Cell Distribution Width 15.0H, Platelet Count 258, Mean Platelet Volume 5.2L, Neutrophils (%) (Auto) 76.5H, Lymphocytes (%) (Auto) 17.4L, Monocytes (%) (Auto) 4.8, Eosinophils (%) (Auto) 1.0, Basophils (%) (Auto) 0.3, Sodium Level 134L, Potassium Level 4.7, Chloride Level 94L, Carbon Dioxide Level 28, Anion Gap 12, Blood Urea Nitrogen 33H, Creatinine 0.8, Estimat Glomerular Filtration Rate > 60, Glucose Level 101, Uric Acid 6.1, Calcium Level 9.8, Phosphorus Level 4.0, Magnesium Level 1.5L, Total Bilirubin 0.4, Aspartate Amino Transf (AST/SGOT) 64H, Alanine Aminotransferase (ALT/SGPT) 135H, Alkaline Phosphatase 302H, C-Reactive Protein , Quantitative 20.0H, Pro-B-Type Natriuretic Peptide 247H, Total Protein 7.8, Albumin 2.1L, Globulin 5.7, Albumin/Globulin Ratio 0.4L Height (Feet): 5 Height (Inches): 3.00 Weight (Pounds): 133 Objective Debilitated AA woman non-verbal, obtunded NCAT (+) trach coarse BS RR obese abd, (+) GJT, (+) (L) trunk edema no edema (+) contractured extremities Celio Vaughan MD May 17, 2019 11:10
--- NOTE | 2019-05-17 12:00 | NUR ---
NURSE NOTES: Pt repositioned and suctioned, oral care provided. JT flushed with 150 cc H20 and GT with 100 cc H20. Head to toe assessment performed and charted. Pt in no acute distress at this time, afebrile. Cristian given. Will continue to monitor.
--- NOTE | 2019-05-17 14:00 | NUR ---
NURSE NOTES: Pt cleaned, suctioned and repositioned. No acute distress at this time.
--- NOTE | 2019-05-17 16:00 | NUR ---
NURSE NOTES: Pt cleaned and repositioned, oral care provided and pt suctioned. Rectal tube noted dislodged, attempted to reinsert it; however, pt repeatedly pushed it out. Rectal tube is now removed. Stool is brown and semi-soft at this time. Pt in no acute distress. Gt and JT flushed per order. Will continue to monitor.
--- NOTE | 2019-05-17 16:56 | NUR ---
NURSE NOTES: Dr Hagen came in to see pt and is aware that pt has been in persistent sinus tachycardia. No new orders received. Pt is asymptomatic, VS noted stable.
--- NOTE | 2019-05-17 19:20 | NUR ---
HAND-OFF: Report given to JEANNINE Church.
--- NOTE | 2019-05-17 19:21 | NUR ---
NURSE NOTES: Endorsement received from JEANNINE Delgado. Patient opens eyes, does not track. Shiley XLT receiving 28% on cool aerosol. With GJ tube. G tube connected to low intermittent suction. J tube receiving Vital 1.2 at 60ml/hr. Purewick in place. With right foot g24 IV. On P200 mattress. On seizure precautions. Bed locked and in low position. Call light within reach. Bed alarm on. Will continue to monitor.
--- NOTE | 2019-05-17 20:43 | General Progress Note ---
Assessment/Plan Problem List: (1) Seizure ICD Codes: R56.9 - Unspecified convulsions SNOMED: 29166077 (2) Anemia ICD Codes: D64.9 - Anemia, unspecified SNOMED: 399924019 Qualifiers: Qualified Codes: D64.9 - Anemia, unspecified (3) Sepsis ICD Codes: A41.9 - Sepsis, unspecified organism SNOMED: 68453274, 873349559 Qualifiers: Qualified Codes: A41.9 - Sepsis, unspecified organism (4) Respiratory failure with hypoxia ICD Codes: J96.91 - Respiratory failure, unspecified with hypoxia SNOMED: 41327189291918694 Qualifiers: Qualified Codes: J96.21 - Acute and chronic respiratory failure with hypoxia (5) HCAP (healthcare-associated pneumonia) ICD Codes: J18.9 - Pneumonia, unspecified organism SNOMED: 473239233, 660947082 (6) Sacral decubitus ulcer ICD Codes: L89.159 - Pressure ulcer of sacral region, unspecified stage SNOMED: 369502695 (7) HTN (hypertension) ICD Codes: I10 - Essential (primary) hypertension SNOMED: 84830168 (8) Chronic vegetative state ICD Codes: R40.3 - Persistent vegetative state SNOMED: 11455444 (9) Chronic respiratory failure ICD Codes: J96.10 - Chronic respiratory failure, unspecified whether with hypoxia or hypercapnia SNOMED: 46056727 (10) Limited mobility ICD Codes: Z74.09 - Other reduced mobility SNOMED: 2797676 Status: stable, progressing Assessment/Plan: iv abx per id monitor for bleeding vent as needed resp rx suctioning replace mg j tube feeds g port to gravity skin care sz rx bowel regime Subjective ROS Limited/Unobtainable: Yes Constitutional: Reports: malaise, weakness HEENT: Reports: no symptoms Cardiovascular: Reports: no symptoms Respiratory: Reports: cough, shortness of breath, sputum Gastrointestinal/Abdominal: Reports: difficulty swallowing Genitourinary: Reports: no symptoms Neurologic/Psychiatric: Reports: pre-existing deficit, seizure Endocrine: Reports: no symptoms Hematologic/Lymphatic: Reports: no symptoms Allergies: Coded Allergies: CODEINE (Verified Allergy, Unknown, HIVES, 09/15/09) All Systems: reviewed and negative except above Subjective no events. congested. HR elevated. no fever or chills. tolerating feeds. tachycardic. labs noted Objective Last 24 Hour Vital Signs Date Time Temp Pulse Resp B/P (MAP) Pulse Ox O2 Delivery O2 Flow Rate FiO2 05/17/19 19:03 107 20 100 T-Piece 5.0 28 106 21 99 05/17/19 19:03 100 T-Piece 5.0 28 05/17/19 19:00 106 21 109/44 (65) 98 05/17/19 18:00 108 19 125/49 (74) 99 05/17/19 17:00 108 20 122/48 (72) 98 05/17/19 16:00 107 05/17/19 16:00 5.0 28 05/17/19 16:00 T-piece 5.0 T-piece 5.0 T-piece 5.0 05/17/19 16:00 98.5 115 21 139/57 (84) 96 05/17/19 15:54 109 23 100 T-Piece 5.0 28 111 22 100 05/17/19 15:00 107 23 121/50 (73) 98 05/17/19 14:00 110 23 106/62 (77) 97 05/17/19 13:00 110 22 115/51 (72) 97 05/17/19 12:48 100 T-Piece 5.0 28 05/17/19 12:00 5.0 28 05/17/19 12:00 98.4 110 24 130/53 (78) 100 05/17/19 12:00 108 05/17/19 12:00 T-piece 5.0 T-piece 5.0 T-piece 5.0 05/17/19 11:40 104 18 100 T-Piece 5.0 28 110 20 100 05/17/19 11:00 112 23 124/54 (77) 99 05/17/19 10:00 112 23 99/40 (59) 98 05/17/19 09:00 112 24 109/51 (70) 98 05/17/19 08:00 T-piece 5.0 T-piece 5.0 T-piece 5.0 05/17/19 08:00 111 05/17/19 08:00 98.3 113 21 123/56 (78) 96 05/17/19 08:00 5.0 28 05/17/19 07:00 109 21 98/34 (55) 100 05/17/19 06:48 100 T-Piece 5.0 28 05/17/19 06:48 111 20 100 T-Piece 5.0 28 109 22 100 05/17/19 06:00 108 21 130/57 (81) 100 05/17/19 05:00 112 19 129/57 (81) 100 05/17/19 04:00 98.1 109 22 141/60 (87) 99 05/17/19 04:00 T-piece 5.0 T-piece 5.0 05/17/19 04:00 113 05/17/19 04:00 5.0 28 05/17/19 03:51 108 21 100 T-Piece 5.0 28 108 20 100 05/17/19 03:00 108 21 122/68 (86) 100 05/17/19 02:00 112 24 127/55 (79) 98 05/17/19 01:15 100 T-Piece 5.0 28 05/17/19 01:00 112 21 124/54 (77) 100 05/17/19 00:00 T-piece 5.0 T-piece 5.0 05/17/19 00:00 5.0 28 05/17/19 00:00 109 05/17/19 00:00 98.0 112 28 131/53 (79) 97 05/16/19 23:00 106 24 120/55 (76) 100 05/16/19 22:45 108 21 100 T-Piece 5.0 28 106 23 99 05/16/19 22:00 106 25 110/55 (73) 98 05/16/19 21:00 108 23 95/48 (64) 95 Intake and Output 05/16/19 05/17/19 19:00 07:00 Intake Total 2740 ml 2430 ml Output Total 1850 ml 1150 ml Balance 890 ml 1280 ml Free Water 300 ml 300 ml IV Total 1270 ml 960 ml Tube Feeding 720 ml 720 ml Other 450 ml 450 ml Output Urine Total 1500 ml 800 ml Stool Total 50 ml 50 ml Gastric Drainage Total 300 ml 300 ml # Voids 1 Laboratory Tests 05/17/19 05:34: White Blood Count 13.1H, Red Blood Count 2.99L, Hemoglobin 8.7L, Hematocrit 26.0L, Mean Corpuscular Volume 87, Mean Corpuscular Hemoglobin 29.0, Mean Corpuscular Hemoglobin Concent 33.3, Red Cell Distribution Width 15.0H, Platelet Count 258, Mean Platelet Volume 5.2L, Neutrophils (%) (Auto) 76.5H, Lymphocytes (%) (Auto) 17.4L, Monocytes (%) (Auto) 4.8, Eosinophils (%) (Auto) 1.0, Basophils (%) (Auto) 0.3, Sodium Level 134L, Potassium Level 4.7, Chloride Level 94L, Carbon Dioxide Level 28, Anion Gap 12, Blood Urea Nitrogen 33H, Creatinine 0.8, Estimat Glomerular Filtration Rate > 60, Glucose Level 101, Uric Acid 6.1, Calcium Level 9.8, Phosphorus Level 4.0, Magnesium Level 1.5L, Total Bilirubin 0.4, Aspartate Amino Transf (AST/SGOT) 64H, Alanine Aminotransferase (ALT/SGPT) 135H, Alkaline Phosphatase 302H, C-Reactive Protein , Quantitative 20.0H, Pro-B-Type Natriuretic Peptide 247H, Total Protein 7.8, Albumin 2.1L, Globulin 5.7, Albumin/Globulin Ratio 0.4L Height (Feet): 5 Height (Inches): 3.00 Weight (Pounds): 133 Objective General Appearance: WD/WN, confused. on trach collar Neck: supple Cardiovascular: normal rate, regular rhythm Respiratory/Chest: chest wall non-tender, rhonchi - bilaterally(minimal) Abdomen: normal bowel sounds, non tender, soft, no organomegaly Edema: no edema noted Arm (L), no edema noted Arm (R), no edema noted Leg (L), no edema noted Leg (R), no edema noted Pedal (L), no edema noted Pedal (R), no edema noted Generalized Neurologic: disoriented, unresponsive, aphasia Irvin Beltrán MD May 17, 2019 20:43
--- NOTE | 2019-05-17 21:00 | NUR ---
NURSE NOTES: Pericare done. Patient repositioned.
[2019-05-18] VITALS (24 sets, daily range): BP systolic 111–163; BP diastolic 43–70
--- NOTE | 2019-05-18 | NUR ---
NURSE NOTES: Patient with eyes closed. Tolerating feeding. Sinus tach on the monitor. No SOB.
--- NOTE | 2019-05-18 02:00 | NUR ---
NURSE NOTES: No sign of pain or discomfort. Secretions suctioned.
[2019-05-18] MEDS: Albuterol/Ipratropium 3ml neb HHN SCH ×6 (03:00→23:31)
--- NOTE | 2019-05-18 04:00 | NUR ---
NURSE NOTES: Bed bath, oral care, change of dressings done
--- NOTE | 2019-05-18 06:00 | NUR ---
NURSE NOTES: Secretions suctioned. Vitals signs stabel. Diuresing well
--- NOTE | 2019-05-18 07:18 | NUR ---
NURSE NOTES: Pt received from JEANNINE Church without cardiopulmonary distress noted. Pt is asleep in bed, obtunded, opens when shaken, pupils are equal and round 4mm and sluggish to light reaction. 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 radial pulses palpable 3+ bilaterally and dorsalis pedis pulses 2+ bilaterally. cap refill< 3 sec. Pt noted with T-piece on 5L O2 with FiO2 28%. Lung sounds noted diminished to right upper and bilat lower lung lobes. Left upper lung lobe noted with rhonchi. GT noted with dry and intact dressing hooked to low intermittent suction with brown, cloudy gastric secretions. JT running Vital AF 1.2 at 60 cc/hr. no nausea, vomiting, or acute distress noted. Abd is round and slightly firm, with active bowel sounds to all quadrants. Purewick noted draining yellow urine. Skin alterations noted. Pt has a right foot 24g running NS TKO at 5 cc/hr. Bed in lowest position, alarm on, side rails up x 2 and padded per seizure precaution, call light within reach, will continue to monitor pt.
--- NOTE | 2019-05-18 07:18 | NUR ---
HAND-OFF: Report given to JEANNINE Delgado.
[2019-05-18] MEDS: Heparin 5000 units/ml inj SUBQ SCH ×2 (08:00→20:11)
[2019-05-18] MEDS: Pantoprazole Inj IVP SCH (08:00)
[2019-05-18] MEDS: levETIRAcetam 500mg/5ml Liquid GT SCH ×2 (08:00→20:09)
--- NOTE | 2019-05-18 08:25 | Pulmonology Progress Note ---
Assessment/Plan Assessment/Plan Impression: Fungemia [facility]+ history of Pneumonia Trach, G tube, Hypertension, Cardiac disease, Dementia, Previous CVA, Seizure disorder, Respiratory failure with hypoxia Anemia, Sacral ulcer renal cyst chronic pulmonary congestion Plan antifungals antimicrobials ID following monitor for change; care reviewed recent cultures reviewed and ID noted monitor imaging for change Vent PRN monitor labs maintain reflux aspiration elevate head and monitor secretions monitor labs monitor vitals; and adjust meds DNR. No CPR. ICU care reviewed meds noted and updated; neb therapy off load as able prognosis very poor nutrition/fees/ dietary as is; monitor residuals skin care management reviewed difficulty with placement all changes noted and discussed chronic management as able medications/laboratory data/nursing notes/ICU care reviewed in detail note reviewed and edited care discussed with RN and RT time spent x 40 minutes Subjective ROS Limited/Unobtainable: Yes Allergies: Coded Allergies: CODEINE (Verified Allergy, Unknown, HIVES, 09/15/09) Subjective overnight events noted; poor LOC on isolation; remains off vent for now Fungemia; noted [facility] ICU care issues discussed bed bound and obtunded some congestion Objective Last 24 Hour Vital Signs Date Time Temp Pulse Resp B/P (MAP) Pulse Ox O2 Delivery O2 Flow Rate FiO2 05/18/19 08:00 98.3 115 18 142/55 (84) 96 05/18/19 08:00 T-piece 5.0 T-piece 5.0 T-piece 5.0 05/18/19 08:00 5.0 28 05/18/19 07:24 100 T-Piece 5.0 28 05/18/19 07:24 94 17 100 T-Piece 5.0 28 88 20 100 05/18/19 07:00 110 22 139/59 (85) 100 05/18/19 06:00 109 22 145/48 (80) 100 05/18/19 05:00 111 23 163/63 (96) 100 05/18/19 04:00 109 05/18/19 04:00 98.2 110 21 144/68 (93) 100 05/18/19 04:00 5.0 28 05/18/19 04:00 T-piece 5.0 T-piece 5.0 T-piece 5.0 05/18/19 03:00 115 17 143/68 (93) 98 05/18/19 03:00 103 17 100 T-Piece 5.0 28 102 19 100 05/18/19 02:00 112 20 127/50 (75) 98 05/18/19 01:00 114 20 149/54 (85) 98 05/18/19 01:00 99 T-Piece 5.0 28 05/18/19 00:00 109 05/18/19 00:00 98.0 110 16 158/67 (97) 100 05/18/19 00:00 T-piece 5.0 T-piece 5.0 T-piece 5.0 05/18/19 00:00 5.0 28 05/17/19 23:39 112 17 100 T-Piece 5.0 28 109 19 100 05/17/19 23:00 108 21 128/62 (84) 100 05/17/19 22:00 108 21 136/63 (87) 100 05/17/19 21:00 110 17 142/57 (85) 98 05/17/19 20:00 98.2 106 21 130/62 (84) 98 05/17/19 20:00 107 05/17/19 20:00 T-piece 5.0 T-piece 5.0 T-piece 5.0 05/17/19 20:00 5.0 28 05/17/19 19:03 107 20 100 T-Piece 5.0 28 106 21 99 05/17/19 19:03 100 T-Piece 5.0 28 05/17/19 19:00 106 21 109/44 (65) 98 05/17/19 18:00 108 19 125/49 (74) 99 05/17/19 17:00 108 20 122/48 (72) 98 05/17/19 16:00 107 05/17/19 16:00 5.0 28 05/17/19 16:00 T-piece 5.0 T-piece 5.0 T-piece 5.0 05/17/19 16:00 98.5 115 21 139/57 (84) 96 05/17/19 15:54 109 23 100 T-Piece 5.0 28 111 22 100 05/17/19 15:00 107 23 121/50 (73) 98 05/17/19 14:00 110 23 106/62 (77) 97 05/17/19 13:00 110 22 115/51 (72) 97 2/16/20 12:48 100 T-Piece 5.0 28 05/17/19 12:00 5.0 28 05/17/19 12:00 98.4 110 24 130/53 (78) 100 05/17/19 12:00 108 05/17/19 12:00 T-piece 5.0 T-piece 5.0 T-piece 5.0 05/17/19 11:40 104 18 100 T-Piece 5.0 28 110 20 100 05/17/19 11:00 112 23 124/54 (77) 99 05/17/19 10:00 112 23 99/40 (59) 98 05/17/19 09:00 112 24 109/51 (70) 98 Intake and Output 05/17/19 05/18/19 19:00 07:00 Intake Total 2940 ml 1470 ml Output Total 1550 ml 2500 ml Balance 1390 ml -1030 ml Free Water 300 ml 300 ml IV Total 1470 ml Tube Feeding 720 ml 720 ml Other 450 ml 450 ml Output Urine Total 1100 ml 2100 ml Stool Total 50 ml Gastric Drainage Total 400 ml 400 ml # Bowel Movements 2 Objective WDWN NAD on oxygen off vent reduced breath sounds bilaterally with scattered rhonchi [id number] tachy without MRG NABS nontender no HSM no CC trace edema same contractures noted nonfocal nonverbal trach and gt reviewed and edited Microbiology Date/Time Source Procedure Growth Status 05/16/19 12:00 Stool Clostridium difficile Toxin Assay - Final Complete Current Medications Medications (Trade) Dose Ordered Sig/Maicol Route PRN Reason Start Time Stop Time Status Last Admin Dose Admin Acetaminophen (Tylenol) 650 mg Q4H PRN RECTAL T>100.5 / Mild Pain 05/07/19 09:45 06/06/19 09:44 05/07/19 10:13 Albuterol/ Ipratropium (Albuterol/ Ipratropium) 3 ml Q4HRT HHN 05/16/19 07:40 05/21/19 07:39 05/18/19 07:25 Atropine Sulfate (Atropine Opth Adriana) 1 drop Q6HR SL 05/11/19 00:00 06/10/19 08:59 05/18/19 05:59 Heparin Sodium (Porcine) (Heparin 5000 units/ml) 5,000 units EVERY 12 HOURS SUBQ 05/01/19 21:00 05/31/19 20:59 05/18/19 08:00 Hydralazine HCl (Apresoline) 10 mg Q4H PRN IV For High Blood Pressure 05/11/19 05:45 06/10/19 05:44 05/12/19 00:08 Levetiracetam (Keppra) 500 mg Q12HR GT 05/01/19 21:00 05/28/19 08:59 05/18/19 08:00 Micafungin Sodium 100 mg/Sodium Chloride 110 ml @ 110 mls/hr Q24H IVPB 05/15/19 12:00 05/22/19 11:59 05/17/19 11:00 Pantoprazole (Protonix) 40 mg DAILY IVP 05/15/19 18:15 06/14/19 18:14 05/18/19 08:00 Amaury Chan MD May 18, 2019 08:25
--- NOTE | 2019-05-18 08:30 | NUR ---
NURSE NOTES: Dr Chan at bedside assessing pt and updated with pt's condition today.
--- NOTE | 2019-05-18 10:00 | NUR ---
NURSE NOTES: Pt suctioned and repositioned, no acute distress noted.
--- NOTE | 2019-05-18 10:22 | Nephrology Progress Note ---
Assessment/Plan Problem List: (1) Acute renal failure (ARF) Assessment: Cr stable (2) Chronic respiratory failure (3) Anemia (4) Sepsis Assessment Acute renal failure Respiratory failure - Trach Low Mag- Low k , Low Na Anemia UTI / Sepsis Proteinuria / HypoAlbuminemia high Trigs Sz decubs bed bound DNR Plan no labs today remains on 4 antibiotics Transfused 05/09 has JT bolus Albumin as needed K and Mag and Phos supplement as needed Hydrate as needed Urine studies avoid Nephrotoxics mag K Phos supplements as needed monitor renal parameters Subjective ROS Limited/Unobtainable: Yes Objective Objective Last 24 Hour Vital Signs Date Time Temp Pulse Resp B/P (MAP) Pulse Ox O2 Delivery O2 Flow Rate FiO2 05/18/19 10:00 112 25 122/43 (69) 95 05/18/19 09:00 110 25 111/46 (67) 98 05/18/19 08:00 115 05/18/19 08:00 98.3 115 18 142/55 (84) 96 05/18/19 08:00 T-piece 5.0 T-piece 5.0 T-piece 5.0 05/18/19 08:00 5.0 28 05/18/19 07:24 100 T-Piece 5.0 28 05/18/19 07:24 94 17 100 T-Piece 5.0 28 88 20 100 05/18/19 07:00 110 22 139/59 (85) 100 05/18/19 06:00 109 22 145/48 (80) 100 05/18/19 05:00 111 23 163/63 (96) 100 05/18/19 04:00 109 05/18/19 04:00 98.2 110 21 144/68 (93) 100 05/18/19 04:00 5.0 28 05/18/19 04:00 T-piece 5.0 T-piece 5.0 T-piece 5.0 05/18/19 03:00 115 17 143/68 (93) 98 05/18/19 03:00 103 17 100 T-Piece 5.0 28 102 19 100 05/18/19 02:00 112 20 127/50 (75) 98 05/18/19 01:00 114 20 149/54 (85) 98 05/18/19 01:00 99 T-Piece 5.0 28 2/17/20 00:00 109 05/18/19 00:00 98.0 110 16 158/67 (97) 100 05/18/19 00:00 T-piece 5.0 T-piece 5.0 T-piece 5.0 05/18/19 00:00 5.0 28 05/17/19 23:39 112 17 100 T-Piece 5.0 28 109 19 100 05/17/19 23:00 108 21 128/62 (84) 100 05/17/19 22:00 108 21 136/63 (87) 100 05/17/19 21:00 110 17 142/57 (85) 98 05/17/19 20:00 98.2 106 21 130/62 (84) 98 05/17/19 20:00 107 05/17/19 20:00 T-piece 5.0 T-piece 5.0 T-piece 5.0 05/17/19 20:00 5.0 28 05/17/19 19:03 107 20 100 T-Piece 5.0 28 106 21 99 05/17/19 19:03 100 T-Piece 5.0 28 05/17/19 19:00 106 21 109/44 (65) 98 05/17/19 18:00 108 19 125/49 (74) 99 05/17/19 17:00 108 20 122/48 (72) 98 05/17/19 16:00 107 05/17/19 16:00 5.0 28 05/17/19 16:00 T-piece 5.0 T-piece 5.0 T-piece 5.0 05/17/19 16:00 98.5 115 21 139/57 (84) 96 05/17/19 15:54 109 23 100 T-Piece 5.0 28 111 22 100 05/17/19 15:00 107 23 121/50 (73) 98 05/17/19 14:00 110 23 106/62 (77) 97 05/17/19 13:00 110 22 115/51 (72) 97 05/17/19 12:48 100 T-Piece 5.0 28 05/17/19 12:00 5.0 28 05/17/19 12:00 98.4 110 24 130/53 (78) 100 05/17/19 12:00 108 05/17/19 12:00 T-piece 5.0 T-piece 5.0 T-piece 5.0 05/17/19 11:40 104 18 100 T-Piece 5.0 28 110 20 100 05/17/19 11:00 112 23 124/54 (77) 99 Intake and Output 05/17/19 05/18/19 19:00 07:00 Intake Total 2940 ml 1470 ml Output Total 1550 ml 2500 ml Balance 1390 ml -1030 ml Free Water 300 ml 300 ml IV Total 1470 ml Tube Feeding 720 ml 720 ml Other 450 ml 450 ml Output Urine Total 1100 ml 2100 ml Stool Total 50 ml Gastric Drainage Total 400 ml 400 ml # Bowel Movements 2 Height (Feet): 5 Height (Inches): 3.00 Weight (Pounds): 137 General Appearance: no apparent distress EENT: other - trach to O2 Cardiovascular: tachycardia Respiratory/Chest: decreased breath sounds Abdomen: distended Objective no change Eric Cortez MD May 18, 2019 10:22
--- NOTE | 2019-05-18 10:26 | NUR ---
NURSE NOTES: Dr Yang at bedside assessing pt, new orders placed to collect sputum culture.
--- NOTE | 2019-05-18 10:50 | Infectious Diseases Prog Note ---
Assessment/Plan Assessment/Plan antibiotics : micafungin A 1. delano parapsilosis fungemia 2. klebsiella sepsis s/p rx s/p catheter removal 3. respiratory failure 4. hypertension 5. CVA 6. dementia 7. rectal VRE colonization 8. leucocytosis improving 9. shock 10. VRE UTI s/p rx P 1. d/c micafungin 2. start meropenem, fluconazole 3. sputum culture 4. will follow up cultures Subjective ROS Limited/Unobtainable: Yes Allergies: Coded Allergies: CODEINE (Verified Allergy, Unknown, HIVES, 09/15/09) Objective Vital Signs Last 24 Hour Vital Signs Date Time Temp Pulse Resp B/P (MAP) Pulse Ox O2 Delivery O2 Flow Rate FiO2 05/18/19 10:00 112 25 122/43 (69) 95 05/18/19 09:00 110 25 111/46 (67) 98 05/18/19 08:00 115 05/18/19 08:00 98.3 115 18 142/55 (84) 96 05/18/19 08:00 T-piece 5.0 T-piece 5.0 T-piece 5.0 05/18/19 08:00 5.0 28 05/18/19 07:24 100 T-Piece 5.0 28 05/18/19 07:24 94 17 100 T-Piece 5.0 28 88 20 100 05/18/19 07:00 110 22 139/59 (85) 100 05/18/19 06:00 109 22 145/48 (80) 100 05/18/19 05:00 111 23 163/63 (96) 100 05/18/19 04:00 109 05/18/19 04:00 98.2 110 21 144/68 (93) 100 05/18/19 04:00 5.0 28 05/18/19 04:00 T-piece 5.0 T-piece 5.0 T-piece 5.0 05/18/19 03:00 115 17 143/68 (93) 98 05/18/19 03:00 103 17 100 T-Piece 5.0 28 102 19 100 05/18/19 02:00 112 20 127/50 (75) 98 05/18/19 01:00 114 20 149/54 (85) 98 05/18/19 01:00 99 T-Piece 5.0 28 05/18/19 00:00 109 05/18/19 00:00 98.0 110 16 158/67 (97) 100 05/18/19 00:00 T-piece 5.0 T-piece 5.0 T-piece 5.0 05/18/19 00:00 5.0 28 05/17/19 23:39 112 17 100 T-Piece 5.0 28 109 19 100 05/17/19 23:00 108 21 128/62 (84) 100 05/17/19 22:00 108 21 136/63 (87) 100 05/17/19 21:00 110 17 142/57 (85) 98 05/17/19 20:00 98.2 106 21 130/62 (84) 98 05/17/19 20:00 107 05/17/19 20:00 T-piece 5.0 T-piece 5.0 T-piece 5.0 05/17/19 20:00 5.0 28 05/17/19 19:03 107 20 100 T-Piece 5.0 28 106 21 99 05/17/19 19:03 100 T-Piece 5.0 28 05/17/19 19:00 106 21 109/44 (65) 98 05/17/19 18:00 108 19 125/49 (74) 99 05/17/19 17:00 108 20 122/48 (72) 98 05/17/19 16:00 107 05/17/19 16:00 5.0 28 05/17/19 16:00 T-piece 5.0 T-piece 5.0 T-piece 5.0 05/17/19 16:00 98.5 115 21 139/57 (84) 96 05/17/19 15:54 109 23 100 T-Piece 5.0 28 111 22 100 05/17/19 15:00 107 23 121/50 (73) 98 05/17/19 14:00 110 23 106/62 (77) 97 05/17/19 13:00 110 22 115/51 (72) 97 05/17/19 12:48 100 T-Piece 5.0 28 05/17/19 12:00 5.0 28 05/17/19 12:00 98.4 110 24 130/53 (78) 100 05/17/19 12:00 108 05/17/19 12:00 T-piece 5.0 T-piece 5.0 T-piece 5.0 05/17/19 11:40 104 18 100 T-Piece 5.0 28 110 20 100 05/17/19 11:00 112 23 124/54 (77) 99 Height (Feet): 5 Height (Inches): 3.00 Weight (Pounds): 137 HEENT: status post trach Respiratory/Chest: crackles/rales, rhonchi - bilaterally Cardiovascular: normal rate, regular rhythm, no gallop/murmur Abdomen: soft, non tender, other - GT Extremities: no edema Microbiology Date/Time Source Procedure Growth Status 05/16/19 12:00 Stool Clostridium difficile Toxin Assay - Final Complete Current Medications Medications (Trade) Dose Ordered Sig/Maicol Route PRN Reason Start Time Stop Time Status Last Admin Dose Admin Acetaminophen (Tylenol) 650 mg Q4H PRN RECTAL T>100.5 / Mild Pain 05/07/19 09:45 06/06/19 09:44 05/07/19 10:13 Albuterol/ Ipratropium (Albuterol/ Ipratropium) 3 ml Q4HRT HHN 05/16/19 07:40 05/21/19 07:39 05/18/19 07:25 Atropine Sulfate (Atropine Opth Adriana) 1 drop Q6HR SL 05/11/19 00:00 06/10/19 08:59 05/18/19 05:59 Heparin Sodium (Porcine) (Heparin 5000 units/ml) 5,000 units EVERY 12 HOURS SUBQ 05/01/19 21:00 05/31/19 20:59 05/18/19 08:00 Hydralazine HCl (Apresoline) 10 mg Q4H PRN IV For High Blood Pressure 05/11/19 05:45 06/10/19 05:44 05/12/19 00:08 Levetiracetam (Keppra) 500 mg Q12HR GT 05/01/19 21:00 05/28/19 08:59 05/18/19 08:00 Micafungin Sodium 100 mg/Sodium Chloride 110 ml @ 110 mls/hr Q24H IVPB 05/15/19 12:00 05/22/19 11:59 05/17/19 11:00 Pantoprazole (Protonix) 40 mg DAILY IVP 05/15/19 18:15 06/14/19 18:14 05/18/19 08:00 Geovany Yang MD May 18, 2019 10:50
[2019-05-18] MEDS: Meropenem 500 MG in NS 55 ML IVPB SCH ×2 (11:57→23:29)
--- NOTE | 2019-05-18 12:00 | NUR ---
NURSE NOTES: Pt repositioned, oral care provided, pt suctioned, no acute distress noted. Head to toe assessment performed and charted. Pt is afebrile. VS noted stable. Noon medications administered. Sputum sample collected and sent down to lab. Will continue to monitor.
--- NOTE | 2019-05-18 13:59 | Surgery Progress Note ---
Surgery Progress Note Subjective Additional Comments wbc improving comfortable appearing Objective Last 24 Hour Vital Signs Date Time Temp Pulse Resp B/P (MAP) Pulse Ox O2 Delivery O2 Flow Rate FiO2 05/18/19 13:28 100 T-Piece 5.0 28 05/18/19 13:00 117 23 141/64 (89) 98 05/18/19 12:00 5.0 28 05/18/19 12:00 98.8 116 23 146/54 (84) 97 05/18/19 12:00 T-piece 5.0 T-piece 5.0 T-piece 5.0 05/18/19 12:00 115 05/18/19 11:00 112 24 135/64 (87) 100 05/18/19 10:51 114 20 100 T-Piece 5.0 28 90 20 100 05/18/19 10:00 112 25 122/43 (69) 95 05/18/19 09:00 110 25 111/46 (67) 98 05/18/19 08:00 115 05/18/19 08:00 98.3 115 18 142/55 (84) 96 05/18/19 08:00 T-piece 5.0 T-piece 5.0 T-piece 5.0 05/18/19 08:00 5.0 28 05/18/19 07:24 100 T-Piece 5.0 28 05/18/19 07:24 94 17 100 T-Piece 5.0 28 88 20 100 05/18/19 07:00 110 22 139/59 (85) 100 05/18/19 06:00 109 22 145/48 (80) 100 05/18/19 05:00 111 23 163/63 (96) 100 05/18/19 04:00 109 05/18/19 04:00 98.2 110 21 144/68 (93) 100 05/18/19 04:00 5.0 28 05/18/19 04:00 T-piece 5.0 T-piece 5.0 T-piece 5.0 05/18/19 03:00 115 17 143/68 (93) 98 05/18/19 03:00 103 17 100 T-Piece 5.0 28 102 19 100 05/18/19 02:00 112 20 127/50 (75) 98 05/18/19 01:00 114 20 149/54 (85) 98 05/18/19 01:00 99 T-Piece 5.0 28 05/18/19 00:00 109 05/18/19 00:00 98.0 110 16 158/67 (97) 100 05/18/19 00:00 T-piece 5.0 T-piece 5.0 T-piece 5.0 05/18/19 00:00 5.0 28 05/17/19 23:39 112 17 100 T-Piece 5.0 28 109 19 100 05/17/19 23:00 108 21 128/62 (84) 100 05/17/19 22:00 108 21 136/63 (87) 100 05/17/19 21:00 110 17 142/57 (85) 98 05/17/19 20:00 98.2 106 21 130/62 (84) 98 05/17/19 20:00 107 05/17/19 20:00 T-piece 5.0 T-piece 5.0 T-piece 5.0 05/17/19 20:00 5.0 28 05/17/19 19:03 107 20 100 T-Piece 5.0 28 106 21 99 05/17/19 19:03 100 T-Piece 5.0 28 05/17/19 19:00 106 21 109/44 (65) 98 05/17/19 18:00 108 19 125/49 (74) 99 05/17/19 17:00 108 20 122/48 (72) 98 05/17/19 16:00 107 05/17/19 16:00 5.0 28 05/17/19 16:00 T-piece 5.0 T-piece 5.0 T-piece 5.0 05/17/19 16:00 98.5 115 21 139/57 (84) 96 05/17/19 15:54 109 23 100 T-Piece 5.0 28 111 22 100 05/17/19 15:00 107 23 121/50 (73) 98 05/17/19 14:00 110 23 106/62 (77) 97 I&O Intake and Output 05/17/19 05/18/19 19:00 07:00 Intake Total 2940 ml 1470 ml Output Total 1550 ml 2500 ml Balance 1390 ml -1030 ml Free Water 300 ml 300 ml IV Total 1470 ml Tube Feeding 720 ml 720 ml Other 450 ml 450 ml Output Urine Total 1100 ml 2100 ml Stool Total 50 ml Gastric Drainage Total 400 ml 400 ml # Bowel Movements 2 Dressing: other Wound: other Drains: other Cardiovascular: RSR Respiratory: decreased breath sounds Abdomen: soft, present bowel sounds Extremities: no cyanosis Plan Problems: (1) Sacral decubitus ulcer Assessment & Plan: This is a 83-year-old female with multiple medical committees that is currently admitted for medical care and management and identified to have multiple wounds requiring care. On admission patient noted to have a resolved sacral decubitus ulcer. Has had prior care and is well-healed at this time. Will ensure it does not open up again. Patient has a right ischial decubitus ulcer that is resolved. Scar intact and well formed. Will monitor to ensure it does not open up again. Patient has a left ischial decubitus ulcer that can be identified to be stage IV with palpable bone that has been resolving as noted by the periwound tissue and scar but open area approximately 1 cm x 1.5 cm few millimeters deep to bone identified. Unsure if this is been to be completely healed prior and has since opened or if has been healing at this level. No foul odor no drainage was unsure local wound care until healed Bilateral heels soft without signs of injury Resolving pressure injury L ischium(L)1.8cm x (W)1cm.Scattered biofilm at base of wound. Edges flat and adherent with surrounding hyperpigmentation. No odor or exudate noted. Sacrum is pale pink with surrounding hyperpigmentation. Hyperpigmentation R ischium with small sheared area centrally.No areas of erythema or exudate noted. Both heels are soft but blanchable. Skin Assessed under collar of trach and no evidence of skin breakdown noted. All wound Tx. are effective and continued as ordered. Pt ahs an APM/Belén mattress overlay and is being repositioned per protocols and per tolerance.No new skin concerns noted. Full thickness pressure injury L Ischium with small amt biofilm (L)1.8cm x (W) 1cm. Surrounding pink hyperpigmentation. No odor or exudate noted. [place] hyperpigmentation from previous wound noted to sacrum. Pt also noted to have Cat 2 Skin Tear dorsal L hand, L 5th metatarsal extending into palm of hand. 80% skin flap in situ.Both heels are dry firm and blanchable. No other skin concerns noted. R ischial wound has resolved. [place] epithelial with surrounding hyperpigmentation. from historical wound. Full thickness pressure injury L ischium. [place] granulation at base of wound. Borders are macerated with Surrounding hyperpigmentation.Small amt non-odorous serous exudate noted.(L)0.7cm x (W)0.8cm. Skin hyperpigmentation from historical wound noted to Sacrum. Small sheared area noted to sacrococcygeal area.(L)0.4cm x (W)0.3cm.Small amt sanguineous exudate noted. Reabsorbed blister with semi-detached dry necrotic cap noted to web space of L thumb and L index fingers extending into palm of L hand. No odor or exudate noted. Skin assessed under tracheal collar and no erythema or evidence of Skin Breakdown noted. NO new skin concerns noted . Good hand hygiene provided to both hands. R hand contracted and fisted. Fingernails trimmed. Wound care provided along with Primary nurse. Wound Tx continued as ordered. New order obtained from to apply Betadine to wound L hand Daily. Tx done as ordered. L hand wrapped with kerlix weaving kerlix between fingers to separate fingers. Moisture Barrier applied to sacrum ,R ischium. Each site covered with Optifoam drsg. Both lower ext washed and moisturized. Cavilon Skin Barrier applied to both heels.Each heel covered with Optifoam drsgs. Pt positioned with pillows and both heels off-loaded with pillow. Pt wounds are resolving. Loose necrotic cap within web space of L index finger and L thumb easily removed with gentle friction. Base of wound is hypergranular with 10% necrosis. Borders are macerated. Application of Silver Nitrate to hypergranular base done. Cavilon Skin Barrier applied to borders . Good hand hygiene provided. Wound covered with Abd pad. L hand wrapped with Kerlix weaving Kerlix between digitsof L hand. Pressure injury L ischium resolving. Base iof wound is pale pink and dry with surrounding hyperpigmentation and scar from previous wound. Hyperpigmentation with historical scars noted to Sacrum and R ischium. Both heels are soft and blanchable. Skin Assessed under trach collar and no evidence of skin breakdown noted. Tx.Plan: Apply Betadine to wound L hand. Cover with Gauze and wrap with Kerlix Daily and prn. Cleanse L ischial wound with Saline. Apply Therahoney. Apply Moisture Barrier periwound. Cover with Optifoam drsgevery 3 days and prn. Apply Moisture Barrier Paste to R ischium and Sacrum. Cover each area with Optifoam drsg. Change every 3 days and prn. Apply Cavilon Skin Barrier to both heels. Cover each heel with Optifoam drsg. Change every 7 days and prn. Cleanse Blister Dorsal and palm of L hand with saline. Versatel One Silicone Contact Layer(Applied). Apply Silvasorb Gel. Wrap with Kerlix Gauze.Change every 7 days and prn. Apply Moisture Barrier to sacrum. Cover with Optifoam drsg. Change every 3 days and prn. APM/BELÉN Mattress overlay. Reposition at least every 2hours or as tolerated. Off-load heels with pillow. Nutritional optimization We will monitor follow with recommendations cont with above upon d/c wounds healing overall improving left hand wound almost resolved. 80% healed (2) Sepsis Assessment & Plan: IV abx as per ID trend labs improving wounds unlikely etiology likely respiratory imaging noted and okay abnormal lft's stable PICC on Abx in ICU for desaturation CXR with consolidation cont with frequent suctioning d/c planning g j via GI acute leukocytosis decompensation hypotensive on pressors pending c diff abx changed per ID daughter wants close attention to wounds and management to ensure healing Evidence of left lower lobe pneumonia, also previously demonstrated Gastrostomy in good position Mild diastasis of the rectus abdominis musculature again demonstrated Retrosacral decubitus changes, better depicted on prior exam which included the pelvis Small hiatal hernia with evidence of trace gastroesophageal reflux Discussed with GI. Recommend GJ family still pending decision transfuse prbc prn monitor h/h monitor bm LFTs improving trending down Findings: Previously demonstrated gastrostomy tube has been converted to a gastrojejunostomy. Gastrostomy balloon is in good position. The shaft of the jejunostomy portion coils in the upper gastric fundus, and the tip is in the proximal jejunum just beyond the ligament of Treitz. The distal esophagus is unremarkable. Contrast is seen within the colon. The visualized bowel demonstrates no significant distention. There is diastasis of the rectus abdominis tendon again demonstrated. The appendix is visualized, normal. The liver, gallbladder, bile ducts, pancreas, spleen, adrenals, right kidney are unremarkable. The left kidney demonstrates a large interpolar region cyst. No retroperitoneal or mesenteric mass or adenopathy. The included lung bases demonstrate groundglass opacities, right greater than left, and areas of scarring or atelectasis on the left. Previously demonstrated left lower lobe dense consolidation has improved The bones demonstrate a very slight superior endplate compression fracture deformity of the L3 vertebral body, also evident previously. Previously reported retrosacral decubitus changes are not included in the current imaging volume Impression: Interim conversion of gastrostomy to gastrojejunostomy, jejunostomy tube tip at the origin of the jejunum, just beyond the ligament of Treitz No acute abdominal abnormality Mild bilateral basilar pulmonary parenchymal groundglass opacities, right greater than left, nonspecific, could indicate atelectasis, edema, or inflammation. May also be in part due to motion artifact. There are also atelectatic changes or scarring on the left L3 vertebral body mild superior endplate compression fracture deformity, also demonstrated on prior January 2019 exam and therefore not acute. Incidental findings as noted, including rectus abdominis tendon diastasis, large left renal cyst (3) Feeding by G-tube Assessment & Plan: DAILY ESTIMATED NEEDS: Needs based on Pulmonary, wounds, bedbound/ 61kg adj 25-30 kcals/kg [id number] total kcals 1.25-2 g protein/kg 76-122 g total protein 25-30 mL/kg 1946-1177 total fluid mLs NUTRITION DIAGNOSIS: * Increased kcal/prot needs R/T wound healing as evidenced by BL buttocks and sacral wound photos, refer to eval. * Swallowing difficulty R/T respiratory status as evidenced by pt on T-collar, s/p G-J conversion CURRENT TF:Glucerna 1.5 @ 50ml/hr x 24 hrs ENTERAL NUTRITION RECOMMENDATIONS: Glucerna 1.5 @ 50ml/hr x 24 hrs to provide 1200ml, 1800 kcal, 99g pro, 911ml free H2O - Maintain at current rate as tolerated to meet 100% est needs - HOB over 30 degrees - INCREASE water flush of 170ml q 6 hrs ADDITIONAL RECOMMENDATIONS: 1) RE-calibrate bedscale wt: fluctuating daily wts (108#-136# last 6 days) 2) Wound healing: Add Cristian 1pkt BID w/ continued good TF tolerance. 3) Increase water flushes, monitor for signs of water deficits 4) Monitor BGs closely, need for NISS -> now w/ improved BGs 5) Monitor for continued good TF tolerance 6) Monitor K : elev K on 03/25, s/p Kdur BID, now dc'ed. (4) Chronic vegetative state Assessment & Plan: incontinence of urine and stool. can soil dressings. nurses doing great job with monitoring and changing prn (5) Leukocytosis Walter Madera May 18, 2019 13:59
--- NOTE | 2019-05-18 14:00 | NUR ---
NURSE NOTES: Pt repositioned and suctioned, no acute distress noted at this time.
--- NOTE | 2019-05-18 14:05 | NUR ---
[employer] SI: RESP FAILURE TRACH/ COOL AEROSOL,LEUKOCYTOSIS T. 98.8 HR 116 RR 25 B/P 146/56 T-BAR 28% WBC 13.1 AST 64 ALT 135 ALK PHOS 302 IS; DIFLUCAN IV MEROPENEM IV HEPARIN SUBC ICU STATUS
--- NOTE | 2019-05-18 16:00 | NUR ---
NURSE NOTES: Pt suctioned and repositioned, oral care performed, no acute distress noted.
--- NOTE | 2019-05-18 19:05 | NUR ---
RESPIRATORY NOTE: Received pt on 28% Cool Aerosol via T-Piece. Pt is trach-dependent w/ a cuffed, Shiley 6XLT tube. Cuff is currently deflated. Pt is awake, responds to stimuli. B/S flory. rhonchi, sxn small to moderate amounts of thick/thin/frothy, pale-yellow to boles-yellow secretions. [place] at bedside. Pt resting comfortably, in no apparent distress at this time. Will continue to monitor pt.
--- NOTE | 2019-05-18 19:13 | NUR ---
NURSE NOTES: Report given to JEANNINE Elaine.
--- NOTE | 2019-05-18 19:14 | NUR ---
NURSE NOTES: Received patient from JEANNINE Delgado. Will continue plan of care.
--- NOTE | 2019-05-18 20:00 | NUR ---
NURSE NOTES: Patient has t-piece Shiley 6 xlt on 28% O2, saturating at 97%. Frequent suctioning needed. On Vital AF feeding at 60ml/hr via J-tube, flushed with 150ml H2O. G-tube flushed with 100ml H2O on low intermittent suctioning. Purewick in place and suctioning well. Right foot 24g IV with TKO. Daughter Tequila at bedside. She informed that patient vaginal area protrudes out when urinating and coughing which has been noted since admission. She states that [facility] from the past has mentioned it to her and she asked what it was, told her I cannot give specifics as it is not my scope of practice. She googled uterine prolapse but patient shows no signs of prolapse per her information from google. She then stated that she wont be worrying about that for now and to make sure she gets better from her current situation.
--- NOTE | 2019-05-18 20:42 | General Progress Note ---
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 - Anemia with OB (-) stools - Resp failure, s/p Trach - OBS, vegetative obtunded unresponsive state, bedbound with contracted extremities - h/o minor GJ tube site irritation - poor Prognosis Recommendations - No plans for immune suppression at this time - abx per ID - PPI daily - Cristian BID - antibiotic ointment to GJT site PRN - aspiration precautions - elevate HOB - Vital AF 1.2 - transfuse to keep Hg > 7 - J tube feeds - G tube ---> LIS - check ESR --> elevated - further evaluation for autoimmune hepatitis (anti DNA) Subjective Allergies: Coded Allergies: CODEINE (Verified Allergy, Unknown, HIVES, 09/15/09) Subjective above noted d/w RN tolerating TF d/w lab re DS DNA - still pending Objective Last 24 Hour Vital Signs Date Time Temp Pulse Resp B/P (MAP) Pulse Ox O2 Delivery O2 Flow Rate FiO2 05/18/19 19:13 117 21 100 T-Piece 5.0 28 05/18/19 19:03 98 T-Piece 5.0 28 05/18/19 19:03 113 23 98 T-Piece 5.0 28 05/18/19 19:00 114 25 149/66 (93) 97 05/18/19 18:00 115 27 153/68 (96) 97 05/18/19 17:00 117 26 137/70 (92) 98 05/18/19 16:00 97.0 114 26 146/59 (88) 98 05/18/19 16:00 T-piece 5.0 T-piece 5.0 T-piece 5.0 05/18/19 16:00 5.0 28 05/18/19 16:00 116 05/18/19 15:37 120 20 100 T-Piece 5.0 28 92 20 100 05/18/19 15:00 111 25 138/54 (82) 98 05/18/19 14:00 113 24 130/60 (83) 98 05/18/19 13:28 100 T-Piece 5.0 28 05/18/19 13:00 117 23 141/64 (89) 98 05/18/19 12:00 5.0 28 05/18/19 12:00 98.8 116 23 146/54 (84) 97 05/18/19 12:00 T-piece 5.0 T-piece 5.0 T-piece 5.0 05/18/19 12:00 115 05/18/19 11:00 112 24 135/64 (87) 100 05/18/19 10:51 114 20 100 T-Piece 5.0 28 90 20 100 05/18/19 10:00 112 25 122/43 (69) 95 05/18/19 09:00 110 25 111/46 (67) 98 05/18/19 08:00 115 05/18/19 08:00 98.3 115 18 142/55 (84) 96 05/18/19 08:00 T-piece 5.0 T-piece 5.0 T-piece 5.0 05/18/19 08:00 5.0 28 05/18/19 07:24 100 T-Piece 5.0 28 05/18/19 07:24 94 17 100 T-Piece 5.0 28 88 20 100 05/18/19 07:00 110 22 139/59 (85) 100 05/18/19 06:00 109 22 145/48 (80) 100 05/18/19 05:00 111 23 163/63 (96) 100 05/18/19 04:00 109 05/18/19 04:00 98.2 110 21 144/68 (93) 100 05/18/19 04:00 5.0 28 05/18/19 04:00 T-piece 5.0 T-piece 5.0 T-piece 5.0 05/18/19 03:00 115 17 143/68 (93) 98 05/18/19 03:00 103 17 100 T-Piece 5.0 28 102 19 100 05/18/19 02:00 112 20 127/50 (75) 98 05/18/19 01:00 114 20 149/54 (85) 98 05/18/19 01:00 99 T-Piece 5.0 28 05/18/19 00:00 109 05/18/19 00:00 98.0 110 16 158/67 (97) 100 05/18/19 00:00 T-piece 5.0 T-piece 5.0 T-piece 5.0 05/18/19 00:00 5.0 28 05/17/19 23:39 112 17 100 T-Piece 5.0 28 109 19 100 05/17/19 23:00 108 21 128/62 (84) 100 05/17/19 22:00 108 21 136/63 (87) 100 05/17/19 21:00 110 17 142/57 (85) 98 Intake and Output 05/17/19 05/18/19 19:00 07:00 Intake Total 2940 ml 1470 ml Output Total 1550 ml 2500 ml Balance 1390 ml -1030 ml Free Water 300 ml 300 ml IV Total 1470 ml Tube Feeding 720 ml 720 ml Other 450 ml 450 ml Output Urine Total 1100 ml 2100 ml Stool Total 50 ml Gastric Drainage Total 400 ml 400 ml # Bowel Movements 2 Height (Feet): 5 Height (Inches): 3.00 Weight (Pounds): 137 Objective Debilitated AA woman non-verbal, obtunded NCAT (+) trach coarse BS RR obese abd, (+) GJT, (+) (L) trunk edema no edema (+) contractured extremities Celio Vaughan MD May 18, 2019 20:42
--- NOTE | 2019-05-18 22:00 | NUR ---
NURSE NOTES: Patient is comfortable. Vital signs are stable. Turned and repositioned. Frequent oral and trach suctioning provided. Daughter at bedside. Will continue plan of care.
[2019-05-19] VITALS (24 sets, daily range): BP systolic 106–170; BP diastolic 52–146
--- NOTE | 2019-05-19 | NUR ---
NURSE NOTES: Suctioning provided. Turned and repositioned. Low grade fever of 99.7F axillary. Cooling measures applied. Will try to find a fan. Vital signs stable. Will continue to monitor.
--- NOTE | 2019-05-19 02:00 | NUR ---
NURSE NOTES: No changes in condition. Vital signs stable. Frequent suction provided orally and through trach. Oral care done. Will continue to monitor.
--- NOTE | 2019-05-19 03:01 | Progress Note ---
DATE: 05/18/2019 CARDIOLOGY PROGRESS NOTE SUBJECTIVE: Covered for Dr. Beltrán. The patient remains on T-tube support. Respiratory hygiene ongoing. Step-down unit level of care. Thin secretions. Sinus tachycardia. OBJECTIVE: VITAL SIGNS: Blood pressure 142/55, pulse 115, respiratory rate 18, and afebrile. LUNGS: Bilateral breath sounds. Few rhonchi. CARDIAC: Regular rhythm. Rapid rate. Normal S1 and S2. ABDOMEN: Soft. GJ tube intact. EXTREMITIES: Trace edema. IMPRESSION: 1. Sepsis. 2. Fungemia. 3. Respiratory failure. 4. KPC bacteremia. 5. Secondary sinus tachycardia due to sepsis. 6. Hypertensive heart disease with chronic diastolic congestive heart failure. PLAN: 1. Antimicrobials. 2. Respiratory support. 3. Nutrition by feeding tube. 4. Monitored electrolytes and clinical parameters. 5. Remains high risk. Bg Hagen M.D. DR: GRACE JOB#: [id number] CC:
[2019-05-19] MEDS: Albuterol/Ipratropium 3ml neb HHN SCH ×6 (03:55→23:39)
--- NOTE | 2019-05-19 04:00 | NUR ---
NURSE NOTES: Bed bath given, wound dressing changed, linens changed, oral care done, suctioning provided. Turned and repositioned. No other changes in condition. Safety measures in place; bed low, locked and alarm is on. Patient is comfortable. RT now at bedside for treatments.
--- NOTE | 2019-05-19 06:00 | NUR ---
NURSE NOTES: No change in patient condition. Patient is stable. Frequent suction provided. Will continue to monitor.
--- NOTE | 2019-05-19 07:22 | NUR ---
HAND-OFF: Report given to JEANNINE SINGLETON.
--- NOTE | 2019-05-19 07:23 | NUR ---
NURSE NOTES: Received report from JEANNINE Elaine. Patient is obtunded, laying in bed, opening eyes spontaneously; however, does not track. Patient is trached Shiley 6 xlt with a t-piece on 28% 5L O2, saturating at 97%. Pt orally suctioned as pt has a lot of secretions. On Vital AF feeding at 60ml/hr via J-tube. G-tube on low intermittent suctioning. Purewick in place and suctioning well. Right foot 24g IV- TKO. Bed locked and lowest position, with call light within reach. Seizure precautions maintained. Will resume plan of care
[2019-05-19] MEDS: Pantoprazole Inj IVP SCH (08:04)
[2019-05-19] MEDS: levETIRAcetam 500mg/5ml Liquid GT SCH ×2 (08:04→20:09)
[2019-05-19] MEDS: Heparin 5000 units/ml inj SUBQ SCH ×2 (08:05→20:10)
--- NOTE | 2019-05-19 09:00 | NUR ---
NURSE NOTES: Pt repositioned. Oral care performed. JTube flushed with 150mL water and GTube flushed with 100mL water. GTube remains on low intermittent suction.
--- NOTE | 2019-05-19 09:02 | Pulmonology Progress Note ---
Assessment/Plan Assessment/Plan Impression: Fungemia [facility]+ history of Pneumonia Trach, G tube, Hypertension, Cardiac disease, Dementia, Previous CVA, Seizure disorder, Respiratory failure with hypoxia Anemia, Sacral ulcer renal cyst chronic pulmonary congestion Plan antifungals antimicrobials ID following monitor for change; care reviewed recent cultures reviewed and ID noted monitor imaging for change Vent PRN but DNR monitor labs for change maintain reflux aspiration elevate head and monitor secretions monitor labs monitor vitals; and adjust meds; cards following; still tachy DNR. No CPR. ICU care reviewed meds noted and updated; neb therapy off load as able prognosis very poor nutrition/fees/ dietary as is; monitor residuals skin care management reviewed difficulty with placement all changes noted and discussed chronic management as able medications/laboratory data/nursing notes/ICU care reviewed in detail note reviewed and edited care discussed with RN and RT time spent x 40 minutes Subjective ROS Limited/Unobtainable: Yes Allergies: Coded Allergies: CODEINE (Verified Allergy, Unknown, HIVES, 09/15/09) Subjective overnight events noted; poor LOC on isolation; remains off vent for now Fungemia; noted [facility] ICU care issues discussed requires suctioning for ongoing congestion Objective Last 24 Hour Vital Signs Date Time Temp Pulse Resp B/P (MAP) Pulse Ox O2 Delivery O2 Flow Rate FiO2 05/19/19 08:00 5.0 28 05/19/19 08:00 99.1 115 17 165/72 (103) 98 05/19/19 08:00 T-piece 5.0 T-piece 5.0 T-piece 5.0 05/19/19 07:58 114 05/19/19 07:00 110 24 131/53 (79) 100 05/19/19 06:56 100 T-Piece 5.0 28 05/19/19 06:55 110 27 100 T-Piece 6.0 28 05/19/19 06:53 108 29 100 T-Piece 5.0 28 112 26 97 05/19/19 06:00 112 24 149/59 (89) 98 05/19/19 05:00 110 23 147/71 (96) 99 05/19/19 04:05 113 26 100 T-Piece 5.0 28 05/19/19 04:00 5.0 28 05/19/19 04:00 T-piece 5.0 T-piece 5.0 T-piece 5.0 05/19/19 04:00 99.6 109 25 142/73 (96) 100 05/19/19 03:55 114 25 100 T-Piece 5.0 28 05/19/19 03:06 110 05/19/19 03:00 111 27 123/54 (77) 97 05/19/19 02:00 113 27 114/52 (72) 96 05/19/19 01:18 100 T-Piece 5.0 28 05/19/19 01:00 115 25 114/55 (74) 96 05/19/19 00:00 T-piece 5.0 T-piece 5.0 T-piece 5.0 05/19/19 00:00 99.7 116 25 132/61 (84) 95 05/19/19 00:00 5.0 28 05/18/19 23:41 110 26 100 T-Piece 5.0 28 05/18/19 23:31 112 22 100 T-Piece 5.0 28 05/18/19 23:05 109 05/18/19 23:00 110 24 127/57 (80) 98 05/18/19 22:00 112 25 124/49 (74) 98 05/18/19 21:00 111 24 113/54 (73) 96 05/18/19 20:00 5.0 28 05/18/19 20:00 99.4 113 26 135/50 (78) 97 05/18/19 20:00 T-piece 5.0 T-piece 5.0 T-piece 5.0 05/18/19 19:13 117 21 100 T-Piece 5.0 28 05/18/19 19:09 119 05/18/19 19:03 98 T-Piece 5.0 28 05/18/19 19:03 113 23 98 T-Piece 5.0 28 05/18/19 19:00 114 25 149/66 (93) 97 05/18/19 18:00 115 27 153/68 (96) 97 05/18/19 17:00 117 26 137/70 (92) 98 05/18/19 16:00 97.0 114 26 146/59 (88) 98 05/18/19 16:00 T-piece 5.0 T-piece 5.0 T-piece 5.0 05/18/19 16:00 5.0 28 05/18/19 16:00 116 05/18/19 15:37 120 20 100 T-Piece 5.0 28 92 20 100 05/18/19 15:00 111 25 138/54 (82) 98 05/18/19 14:00 113 24 130/60 (83) 98 05/18/19 13:28 100 T-Piece 5.0 28 05/18/19 13:00 117 23 141/64 (89) 98 05/18/19 12:00 5.0 28 05/18/19 12:00 98.8 116 23 146/54 (84) 97 05/18/19 12:00 T-piece 5.0 T-piece 5.0 T-piece 5.0 05/18/19 12:00 115 05/18/19 11:00 112 24 135/64 (87) 100 05/18/19 10:51 114 20 100 T-Piece 5.0 28 90 20 100 05/18/19 10:00 112 25 122/43 (69) 95 Intake and Output 05/18/19 05/19/19 19:00 07:00 Intake Total 1725 ml 1525 ml Output Total 800 ml 1100 ml Balance 925 ml 425 ml Free Water 300 ml 300 ml IV Total 255 ml 55 ml Tube Feeding 720 ml 720 ml Other 450 ml 450 ml Output Urine Total 600 ml 700 ml Gastric Drainage Total 200 ml 400 ml # Bowel Movements 1 Objective WDWN NAD on oxygen off vent reduced breath sounds bilaterally with scattered rhonchi [id number] tachy without MRG NABS nontender no HSM no CC trace edema same contractures noted nonfocal nonverbal trach and gt reviewed and edited Microbiology Date/Time Source Procedure Growth Status 05/18/19 11:00 Sputum Gram Stain Pending Resulted 05/18/19 11:00 Sputum Culture - Preliminary Gram Negative Bacillus 1 Resulted 05/16/19 12:00 Stool Clostridium difficile Toxin Assay - Final Complete Laboratory Tests 05/19/19 04:45: Anti-Double Strand DNA Antibody [Pending], Anti-Single Strand DNA Antibody [ Pending] Current Medications Medications (Trade) Dose Ordered Sig/Maicol Route PRN Reason Start Time Stop Time Status Last Admin Dose Admin Acetaminophen (Tylenol) 650 mg Q4H PRN RECTAL T>100.5 / Mild Pain 05/07/19 09:45 06/06/19 09:44 05/07/19 10:13 Albuterol/ Ipratropium (Albuterol/ Ipratropium) 3 ml Q4HRT HHN 05/16/19 07:40 05/21/19 07:39 05/19/19 06:53 Atropine Sulfate (Atropine Opth Adriana) 1 drop Q6HR SL 05/11/19 00:00 06/10/19 08:59 05/19/19 05:23 Fluconazole/ Sodium Chloride 200 ml @ 100 mls/hr Q24H IV 05/18/19 12:00 05/25/19 11:59 05/18/19 11:57 Heparin Sodium (Porcine) (Heparin 5000 units/ml) 5,000 units EVERY 12 HOURS SUBQ 05/01/19 21:00 05/31/19 20:59 05/19/19 08:05 Hydralazine HCl (Apresoline) 10 mg Q4H PRN IV For High Blood Pressure 05/11/19 05:45 06/10/19 05:44 05/12/19 00:08 Levetiracetam (Keppra) 500 mg Q12HR GT 05/01/19 21:00 05/28/19 08:59 05/19/19 08:04 Meropenem 500 mg/ Sodium Chloride 55 ml @ 110 mls/hr Q12H IVPB 05/18/19 12:00 05/23/19 11:59 05/18/19 23:29 Pantoprazole (Protonix) 40 mg DAILY IVP 05/15/19 18:15 06/14/19 18:14 05/19/19 08:04 Amaury Chan MD May 19, 2019 09:02
--- NOTE | 2019-05-19 11:04 | Infectious Diseases Prog Note ---
Assessment/Plan Assessment/Plan antibiotics : meropenem, micafungin A 1. delano parapsilosis fungemia 2. klebsiella sepsis s/p rx s/p catheter removal 3. respiratory failure 4. hypertension 5. CVA 6. dementia 7. rectal VRE colonization 8. leucocytosis improving 9. gram negative pneumonia 10. VRE UTI s/p rx P 1. continue meropenem, fluconazole 2. will follow up cultures Subjective ROS Limited/Unobtainable: Yes Allergies: Coded Allergies: CODEINE (Verified Allergy, Unknown, HIVES, 09/15/09) Objective Vital Signs Last 24 Hour Vital Signs Date Time Temp Pulse Resp B/P (MAP) Pulse Ox O2 Delivery O2 Flow Rate FiO2 05/19/19 10:58 103 19 100 T-Piece 5.0 28 104 21 99 05/19/19 10:00 104 25 140/66 (90) 99 05/19/19 09:00 109 23 165/77 (106) 99 05/19/19 08:00 5.0 28 05/19/19 08:00 99.1 115 17 165/72 (103) 98 05/19/19 08:00 T-piece 5.0 T-piece 5.0 T-piece 5.0 05/19/19 07:58 114 05/19/19 07:00 110 24 131/53 (79) 100 05/19/19 06:56 100 T-Piece 5.0 28 05/19/19 06:55 110 27 100 T-Piece 6.0 28 05/19/19 06:53 108 29 100 T-Piece 5.0 28 112 26 97 05/19/19 06:00 112 24 149/59 (89) 98 05/19/19 05:00 110 23 147/71 (96) 99 05/19/19 04:05 113 26 100 T-Piece 5.0 28 05/19/19 04:00 5.0 28 05/19/19 04:00 T-piece 5.0 T-piece 5.0 T-piece 5.0 05/19/19 04:00 99.6 109 25 142/73 (96) 100 05/19/19 03:55 114 25 100 T-Piece 5.0 28 05/19/19 03:06 110 05/19/19 03:00 111 27 123/54 (77) 97 05/19/19 02:00 113 27 114/52 (72) 96 05/19/19 01:18 100 T-Piece 5.0 28 05/19/19 01:00 115 25 114/55 (74) 96 05/19/19 00:00 T-piece 5.0 T-piece 5.0 T-piece 5.0 05/19/19 00:00 99.7 116 25 132/61 (84) 95 05/19/19 00:00 5.0 28 05/18/19 23:41 110 26 100 T-Piece 5.0 28 05/18/19 23:31 112 22 100 T-Piece 5.0 28 05/18/19 23:05 109 05/18/19 23:00 110 24 127/57 (80) 98 05/18/19 22:00 112 25 124/49 (74) 98 05/18/19 21:00 111 24 113/54 (73) 96 05/18/19 20:00 5.0 28 05/18/19 20:00 99.4 113 26 135/50 (78) 97 05/18/19 20:00 T-piece 5.0 T-piece 5.0 T-piece 5.0 05/18/19 19:13 117 21 100 T-Piece 5.0 28 05/18/19 19:09 119 05/18/19 19:03 98 T-Piece 5.0 28 05/18/19 19:03 113 23 98 T-Piece 5.0 28 05/18/19 19:00 114 25 149/66 (93) 97 05/18/19 18:00 115 27 153/68 (96) 97 05/18/19 17:00 117 26 137/70 (92) 98 05/18/19 16:00 97.0 114 26 146/59 (88) 98 05/18/19 16:00 T-piece 5.0 T-piece 5.0 T-piece 5.0 05/18/19 16:00 5.0 28 05/18/19 16:00 116 05/18/19 15:37 120 20 100 T-Piece 5.0 28 92 20 100 05/18/19 15:00 111 25 138/54 (82) 98 05/18/19 14:00 113 24 130/60 (83) 98 05/18/19 13:28 100 T-Piece 5.0 28 05/18/19 13:00 117 23 141/64 (89) 98 05/18/19 12:00 5.0 28 05/18/19 12:00 98.8 116 23 146/54 (84) 97 05/18/19 12:00 T-piece 5.0 T-piece 5.0 T-piece 5.0 05/18/19 12:00 115 Height (Feet): 5 Height (Inches): 3.00 Weight (Pounds): 135 HEENT: status post trach Respiratory/Chest: lungs clear Cardiovascular: normal rate, regular rhythm, no gallop/murmur Abdomen: soft, non tender, other - GT Extremities: no edema Microbiology Date/Time Source Procedure Growth Status 05/18/19 11:00 Sputum Gram Stain Pending Resulted 05/18/19 11:00 Sputum Culture - Preliminary Gram Negative Bacillus 1 Resulted 05/16/19 12:00 Stool Clostridium difficile Toxin Assay - Final Complete Laboratory Tests Test 05/19/19 04:45 Anti-Double Strand DNA Antibody Pending Anti-Single Strand DNA Antibody Pending Current Medications Medications (Trade) Dose Ordered Sig/Maicol Route PRN Reason Start Time Stop Time Status Last Admin Dose Admin Acetaminophen (Tylenol) 650 mg Q4H PRN RECTAL T>100.5 / Mild Pain 05/07/19 09:45 06/06/19 09:44 05/07/19 10:13 Albuterol/ Ipratropium (Albuterol/ Ipratropium) 3 ml Q4HRT HHN 05/16/19 07:40 05/21/19 07:39 05/19/19 10:42 Atropine Sulfate (Atropine Opth Adriana) 1 drop Q6HR SL 05/11/19 00:00 06/10/19 08:59 05/19/19 05:23 Fluconazole/ Sodium Chloride 200 ml @ 100 mls/hr Q24H IV 05/18/19 12:00 05/25/19 11:59 05/18/19 11:57 Heparin Sodium (Porcine) (Heparin 5000 units/ml) 5,000 units EVERY 12 HOURS SUBQ 05/01/19 21:00 05/31/19 20:59 05/19/19 08:05 Hydralazine HCl (Apresoline) 10 mg Q4H PRN IV For High Blood Pressure 05/11/19 05:45 06/10/19 05:44 05/12/19 00:08 Levetiracetam (Keppra) 500 mg Q12HR GT 05/01/19 21:00 05/28/19 08:59 05/19/19 08:04 Meropenem 1 gm/ Sodium Chloride 110 ml @ 220 mls/hr Q12HR@0000,1200 IVPB 05/19/19 12:00 05/24/19 11:59 Pantoprazole (Protonix) 40 mg DAILY IVP 05/15/19 18:15 06/14/19 18:14 05/19/19 08:04 Geovany Yang MD May 19, 2019 11:04
[2019-05-19] MEDS: Meropenem 1gm/NS 110ml IVPB SCH ×4 (11:06→23:21)
--- NOTE | 2019-05-19 12:10 | NUR ---
NURSE NOTES: Pt cleaned, repositioned and oral care performed. Pt suctioned. Tube feeding and tubing changed at this time. No distress noted. Will continue to monitor.
--- NOTE | 2019-05-19 13:56 | NUR ---
RD ASSESSMENT & RECOMMENDATIONS SEE CARE ACTIVITY FOR COMPLETE ASSESSMENT DAILY ESTIMATED NEEDS: Needs based on Pulmonary, wounds, bedbound/ 61kg adj 25-30 kcals/kg 5677-7735 total kcals 1.25-2 g protein/kg 76-122 g total protein 25-30 mL/kg 8370-3581 total fluid mLs NUTRITION DIAGNOSIS: * Increased kcal/prot needs R/T wound healing as evidenced by BL buttocks and sacral wound photos, refer to WC eval-> wounds resolving, sacrum healed. * Swallowing difficulty R/T respiratory status as evidenced by pt on T-collar, s/p G-J conversion CURRENT TF:Vital AF 1.2 @ 60ml/hr x 24 hrs ENTERAL NUTRITION RECOMMENDATIONS: VITAL AF 1.2 @ 60ml/hr x 24 hrs to provide 1440ml, 1728kcal, 108g prot, 1167ml free water - Maintain current TF as tolerated-> meets 100% est needs - HOB over 30 degrees - Rec to increase water flushes ADDITIONAL RECOMMENDATIONS: 1) Maintain calibrated bedscale wt: fluctuating daily wts 2) Wound healing: maintain Cristian BID for skin integrity 3) Rec NISS for improved BG control 4) Monitor for continued good TF tolerance 5) Monitor hydration status: rec increasing water flushes (elev BUN) . .
--- NOTE | 2019-05-19 13:56 | Nephrology Progress Note ---
Assessment/Plan Problem List: (1) Acute renal failure (ARF) Assessment: Cr stable (2) Chronic respiratory failure (3) Anemia (4) Sepsis Assessment Acute renal failure Respiratory failure - Trach Low Mag- Low k , Low Na Anemia UTI / Sepsis Proteinuria / HypoAlbuminemia high Trigs Sz decubs bed bound DNR Plan no labs today remains on 4 antibiotics Transfused 05/09 has JT bolus Albumin as needed K and Mag and Phos supplement as needed Hydrate as needed Urine studies avoid Nephrotoxics mag K Phos supplements as needed monitor renal parameters Subjective ROS Limited/Unobtainable: Yes Objective Objective Last 24 Hour Vital Signs Date Time Temp Pulse Resp B/P (MAP) Pulse Ox O2 Delivery O2 Flow Rate FiO2 05/19/19 13:00 106 24 159/69 (99) 98 05/19/19 12:40 100 T-Piece 5.0 28 05/19/19 12:00 99.2 110 22 145/64 (91) 98 05/19/19 12:00 5.0 28 05/19/19 12:00 108 05/19/19 12:00 T-piece 5.0 T-piece 5.0 T-piece 5.0 05/19/19 11:00 105 24 154/69 (97) 98 05/19/19 10:58 103 19 100 T-Piece 5.0 28 104 21 99 05/19/19 10:00 104 25 140/66 (90) 99 05/19/19 09:00 109 23 165/77 (106) 99 05/19/19 08:00 5.0 28 05/19/19 08:00 99.1 115 17 165/72 (103) 98 05/19/19 08:00 T-piece 5.0 T-piece 5.0 T-piece 5.0 05/19/19 07:58 114 05/19/19 07:00 110 24 131/53 (79) 100 05/19/19 06:56 100 T-Piece 5.0 28 05/19/19 06:55 110 27 100 T-Piece 6.0 28 05/19/19 06:53 108 29 100 T-Piece 5.0 28 112 26 97 05/19/19 06:00 112 24 149/59 (89) 98 05/19/19 05:00 110 23 147/71 (96) 99 05/19/19 04:05 113 26 100 T-Piece 5.0 28 05/19/19 04:00 5.0 28 05/19/19 04:00 T-piece 5.0 T-piece 5.0 T-piece 5.0 05/19/19 04:00 99.6 109 25 142/73 (96) 100 05/19/19 03:55 114 25 100 T-Piece 5.0 28 05/19/19 03:06 110 05/19/19 03:00 111 27 123/54 (77) 97 05/19/19 02:00 113 27 114/52 (72) 96 05/19/19 01:18 100 T-Piece 5.0 28 05/19/19 01:00 115 25 114/55 (74) 96 05/19/19 00:00 T-piece 5.0 T-piece 5.0 T-piece 5.0 05/19/19 00:00 99.7 116 25 132/61 (84) 95 05/19/19 00:00 5.0 28 05/18/19 23:41 110 26 100 T-Piece 5.0 28 05/18/19 23:31 112 22 100 T-Piece 5.0 28 05/18/19 23:05 109 05/18/19 23:00 110 24 127/57 (80) 98 05/18/19 22:00 112 25 124/49 (74) 98 05/18/19 21:00 111 24 113/54 (73) 96 05/18/19 20:00 5.0 28 05/18/19 20:00 99.4 113 26 135/50 (78) 97 05/18/19 20:00 T-piece 5.0 T-piece 5.0 T-piece 5.0 05/18/19 19:13 117 21 100 T-Piece 5.0 28 05/18/19 19:09 119 05/18/19 19:03 98 T-Piece 5.0 28 05/18/19 19:03 113 23 98 T-Piece 5.0 28 05/18/19 19:00 114 25 149/66 (93) 97 05/18/19 18:00 115 27 153/68 (96) 97 05/18/19 17:00 117 26 137/70 (92) 98 05/18/19 16:00 97.0 114 26 146/59 (88) 98 05/18/19 16:00 T-piece 5.0 T-piece 5.0 T-piece 5.0 05/18/19 16:00 5.0 28 05/18/19 16:00 116 05/18/19 15:37 120 20 100 T-Piece 5.0 28 92 20 100 05/18/19 15:00 111 25 138/54 (82) 98 05/18/19 14:00 113 24 130/60 (83) 98 Intake and Output 05/18/19 05/19/19 19:00 07:00 Intake Total 1725 ml 1525 ml Output Total 800 ml 1100 ml Balance 925 ml 425 ml Free Water 300 ml 300 ml IV Total 255 ml 55 ml Tube Feeding 720 ml 720 ml Other 450 ml 450 ml Output Urine Total 600 ml 700 ml Gastric Drainage Total 200 ml 400 ml # Bowel Movements 1 Laboratory Tests 05/19/19 04:45: Anti-Double Strand DNA Antibody [Pending], Anti-Single Strand DNA Antibody [ Pending] Height (Feet): 5 Height (Inches): 3.00 Weight (Pounds): 135 General Appearance: no apparent distress EENT: other - vented Cardiovascular: tachycardia Respiratory/Chest: decreased breath sounds Abdomen: soft Objective no change Eric Cortez MD May 19, 2019 13:56
--- NOTE | 2019-05-19 14:30 | NUR ---
NURSE NOTES: No change in patient condition. Patient is stable, no distress noted. Frequent suction provided as pt continues to have a lot of secretions.
--- NOTE | 2019-05-19 17:00 | NUR ---
NURSE NOTES: Pt had a BM, was fully cleaned and repositioned. Oral care performed. No acute distress noted.
[2019-05-19] MEDS ORDERED: NS 275ml ONE (18:52)
--- NOTE | 2019-05-19 19:04 | NUR ---
HAND-OFF: Report given to JEANNINE Eliane.
--- NOTE | 2019-05-19 19:05 | NUR ---
NURSE NOTES: Received patient from JEANNINE Haynes. Will continue plan of care.
--- NOTE | 2019-05-19 20:00 | NUR ---
NURSE NOTES: Received patient with t-piece Shiley 6 xlt to 28%/5L O2. Current vital signs: BP:151/62, HR:97, RESP:24, O2 sat:96%.G/J tube in place; Jtube feeding of Vital AF @ 60ml/hr and flushed with 150ml h2o. Gtube on low intermittent suctioning and flushed with 100ml h2o. Purewick in place and suctioning well. Right foot 24g IV intact and patent running TKO. Suctioning and oral care provided. Safety measures in place; bed low locked and alarm is on. Will continue plan of care.
--- NOTE | 2019-05-19 22:00 | NUR ---
NURSE NOTES: Patient has a lot of thin frothy secretions. Frequent suctioning needed orally and through trach. Daughter at bedside; she asked about the scopolamine patch she previously had back in March, will inform MD. Also explained that her Atropine drop is due at midnight and will monitor how effective it will be afterwards. Patient turned and repositioned with help of daughter as she insisted. Suctioning provided as instructed. Will continue to monitor.
--- NOTE | 2019-05-19 23:59 | General Progress Note ---
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 - Anemia with OB (-) stools - Resp failure, s/p Trach - OBS, vegetative obtunded unresponsive state, bedbound with contracted extremities - h/o minor GJ tube site irritation - poor Prognosis Recommendations - No plans for immune suppression at this time - abx per ID - PPI daily - Cristian BID - antibiotic ointment to GJT site PRN - aspiration precautions - elevate HOB - Vital AF 1.2 - transfuse to keep Hg > 7 - J tube feeds - G tube ---> LIS - check ESR --> elevated - further evaluation for autoimmune hepatitis (anti DNA) - second Anti- DNA pending Subjective Allergies: Coded Allergies: CODEINE (Verified Allergy, Unknown, HIVES, 09/15/09) Subjective above noted d/w RN tolerating TF Objective Last 24 Hour Vital Signs Date Time Temp Pulse Resp B/P (MAP) Pulse Ox O2 Delivery O2 Flow Rate FiO2 05/19/19 23:39 98 21 100 T-Piece 5.0 28 96 24 99 05/19/19 23:00 98 23 136/57 (83) 99 05/19/19 22:00 102 19 143/72 (95) 98 05/19/19 21:00 95 23 150/65 (93) 100 05/19/19 20:00 T-piece 5.0 T-piece 5.0 T-piece 5.0 05/19/19 20:00 98.5 97 24 151/62 (91) 100 05/19/19 20:00 5.0 28 05/19/19 19:24 100 05/19/19 19:12 100 T-Piece 5.0 28 05/19/19 19:11 98 23 100 T-Piece 5.0 28 100 22 99 05/19/19 19:00 99 22 149/80 (103) 98 05/19/19 18:00 99.3 101 24 149/80 (103) 100 05/19/19 17:00 105 23 132/60 (84) 100 05/19/19 16:00 5.0 28 05/19/19 16:00 T-piece 5.0 T-piece 5.0 T-piece 5.0 05/19/19 16:00 105 23 106/65 (79) 100 05/19/19 15:20 101 05/19/19 15:02 105 27 100 T-Piece 5.0 28 103 23 99 05/19/19 15:00 105 19 153/58 (89) 100 05/19/19 14:00 108 25 170/146 (154) 98 05/19/19 13:00 106 24 159/69 (99) 98 05/19/19 12:40 100 T-Piece 5.0 28 05/19/19 12:00 99.2 110 22 145/64 (91) 98 05/19/19 12:00 5.0 28 05/19/19 12:00 108 05/19/19 12:00 T-piece 5.0 T-piece 5.0 T-piece 5.0 05/19/19 11:00 105 24 154/69 (97) 98 05/19/19 10:58 103 19 100 T-Piece 5.0 28 104 21 99 05/19/19 10:00 104 25 140/66 (90) 99 05/19/19 09:00 109 23 165/77 (106) 99 05/19/19 08:00 5.0 28 05/19/19 08:00 99.1 115 17 165/72 (103) 98 05/19/19 08:00 T-piece 5.0 T-piece 5.0 T-piece 5.0 05/19/19 07:58 114 05/19/19 07:00 110 24 131/53 (79) 100 05/19/19 06:56 100 T-Piece 5.0 28 05/19/19 06:55 110 27 100 T-Piece 6.0 28 05/19/19 06:53 108 29 100 T-Piece 5.0 28 112 26 97 05/19/19 06:00 112 24 149/59 (89) 98 05/19/19 05:00 110 23 147/71 (96) 99 05/19/19 04:05 113 26 100 T-Piece 5.0 28 05/19/19 04:00 5.0 28 05/19/19 04:00 T-piece 5.0 T-piece 5.0 T-piece 5.0 05/19/19 04:00 99.6 109 25 142/73 (96) 100 05/19/19 03:55 114 25 100 T-Piece 5.0 28 05/19/19 03:06 110 05/19/19 03:00 111 27 123/54 (77) 97 05/19/19 02:00 113 27 114/52 (72) 96 05/19/19 01:18 100 T-Piece 5.0 28 05/19/19 01:00 115 25 114/55 (74) 96 05/19/19 00:00 T-piece 5.0 T-piece 5.0 T-piece 5.0 05/19/19 00:00 99.7 116 25 132/61 (84) 95 05/19/19 00:00 5.0 28 Intake and Output 05/18/19 05/19/19 19:00 07:00 Intake Total 1725 ml 1525 ml Output Total 800 ml 1100 ml Balance 925 ml 425 ml Free Water 300 ml 300 ml IV Total 255 ml 55 ml Tube Feeding 720 ml 720 ml Other 450 ml 450 ml Output Urine Total 600 ml 700 ml Gastric Drainage Total 200 ml 400 ml # Bowel Movements 1 Laboratory Tests 05/19/19 04:45: Anti-Double Strand DNA Antibody [Pending], Anti-Single Strand DNA Antibody [ Pending] Height (Feet): 5 Height (Inches): 3.00 Weight (Pounds): 135 Objective Debilitated AA woman non-verbal, obtunded NCAT (+) trach coarse BS RR obese abd, (+) GJT, (+) (L) trunk edema no edema (+) contractured extremities Celio Vaughan MD May 19, 2019 23:59
[2019-05-20] VITALS (24 sets, daily range): BP systolic 125–167; BP diastolic 56–124
--- NOTE | 2019-05-20 | NUR ---
NURSE NOTES: Dr. Vaughan came to see patient. Suggested to have the G-Tube low intermittent suction designated to one suction to the wall. Request done and combined the trach mejía suction and purewick suction together to continuous. Oral suction provided. Turned and repositioned. Safety measures in place.
--- NOTE | 2019-05-20 02:00 | NUR ---
NURSE NOTES: No changes in patient's condition. Vital signs stable. Turned and repositioned. Will continue to monitor.
[2019-05-20] MEDS: Albuterol/Ipratropium 3ml neb HHN SCH ×6 (03:29→22:55)
--- NOTE | 2019-05-20 03:30 | Progress Note ---
DATE: 05/19/2019 CARDIOLOGY PROGRESS NOTE SUBJECTIVE: The patient on antimicrobials. Continues on trach collar. Monitored rhythm, sinus with sinus tachycardia. OBJECTIVE: VITAL SIGNS: Blood pressure ranged stable in the range of 131/53 to 165/72. LUNGS: Coarse breath sounds, rhonchi. CARDIAC: Regular rhythm, rapid rate. Normal S1, S2. ABDOMEN: Soft. GJ tube intact. EXTREMITIES: Trace edema. IMPRESSION: 1. Fungemia. 2. KPC pneumonia. 3. Sepsis. 4. Secondary sinus tachycardia. 5. Hypertensive heart disease. 6. Acute on chronic diastolic congestive heart failure. 7. Natriuretic peptide down to 247. PLAN: 1. Antifungal and antibacterial agent. 2. Respiratory hygiene. 3. Maintain adequate hydration. 4. Follow up lab studies. Bg Hagen M.D. DR: Raquel JOB#: [id number] CC:
--- NOTE | 2019-05-20 04:00 | NUR ---
NURSE NOTES: Bed bath given, linen changed, oral care and suctioning provided. Turned and repositioned. Will continue to monitor.
--- NOTE | 2019-05-20 06:00 | NUR ---
NURSE NOTES: No change in patient condition. Turned and repositioned. Suctioning and oral care provided. Will continue to monitor.
--- NOTE | 2019-05-20 07:20 | NUR ---
HAND-OFF: Report given to JEANNINE Suggs.
--- NOTE | 2019-05-20 07:22 | NUR ---
NURSE NOTES: Late entry: PT and report received from JEANNINE Elaine; PT open eyes during rounds, obtunded, unresponsive, bilateral lungs diminished remain on t-piece cool aerosol, JT feeding of Vital AF @ 60cc/hr, no residual noted on drawback, GT connected to wall suction for intermittent suction, PT has purewick to wall suction, remains on P200 mattress, PIV on R-foot 24g intact patent no S/S of infiltration noted, will continue to monitor PT.
--- NOTE | 2019-05-20 08:03 | Pulmonolgy Critical Care Note ---
Critical Care - Asmt/Plan Assessment/Plan: Pulmonary CCM Progress Note Impression: Fungemia KPC+ ID following history of Pneumonia Trach, G tube, Hypertension, Cardiac disease, Dementia, Previous CVA, Seizure disorder, Respiratory failure with hypoxia Anemia, Sacral ulcer renal cyst chronic pulmonary congestion Plan antifungals/ID antimicrobials/ID monitor for change; care reviewed recent cultures reviewed monitor imaging for change Vent PRN but DNR monitor labs for change maintain reflux aspiration elevate head and monitor secretions monitor labs monitor vitals; and adjust meds; cards following; still tachy DNR. No CPR. ICU care reviewed meds noted and updated; neb therapy off load as able prognosis very poor nutrition/fees/ dietary as is; monitor residuals skin care management reviewed difficulty with placement all changes noted and discussed chronic management as able medications/laboratory data/nursing notes/ICU care reviewed in detail note reviewed and edited care discussed with RN and RT time spent x 40 minutes Subjective ROS Limited/Unobtainable: Yes Allergies: Coded Allergies: CODEINE (Verified Allergy, Unknown, HIVES, 09/15/09) Subjective overnight events noted; poor LOC on isolation; remains off vent for now Fungemia; noted [facility] ICU care issues discussed requires suctioning for ongoing congestion Objective Vital Signs Noted Objective WDWN NAD contracted off vent reduced breath sounds bilaterally with some rhonchi; no wheeze [id number] without MRG NABS nontender no HSM no CC minimal nonfocal nonverbal trach and gt reviewed and edited Laboratory Tests Noted Critical Care - Objective Last 24 Hour Vital Signs Date Time Temp Pulse Resp B/P (MAP) Pulse Ox O2 Delivery O2 Flow Rate FiO2 05/20/19 07:04 100 T-Piece 5.0 28 05/20/19 07:04 100 20 100 T-Piece 5.0 28 101 22 100 05/20/19 07:00 103 22 154/70 (98) 99 05/20/19 06:00 102 24 144/62 (89) 98 05/20/19 05:00 102 21 153/68 (96) 98 05/20/19 04:00 T-piece 5.0 T-piece 5.0 T-piece 5.0 05/20/19 04:00 98.4 97 24 142/69 (93) 99 05/20/19 04:00 5.0 28 05/20/19 03:29 101 23 100 T-Piece 5.0 28 103 24 100 05/20/19 03:02 102 05/20/19 03:00 98 22 145/63 (90) 100 05/20/19 02:00 103 23 125/90 (102) 98 05/20/19 01:06 100 T-Piece 5.0 28 05/20/19 01:00 103 21 133/92 (106) 99 05/20/19 00:00 T-piece 5.0 T-piece 5.0 T-piece 5.0 05/20/19 00:00 98.9 98 24 139/63 (88) 100 05/20/19 00:00 5.0 28 05/19/19 23:39 98 21 100 T-Piece 5.0 28 96 24 99 05/19/19 23:15 96 05/19/19 23:00 98 23 136/57 (83) 99 05/19/19 22:00 102 19 143/72 (95) 98 05/19/19 21:00 95 23 150/65 (93) 100 05/19/19 20:00 T-piece 5.0 T-piece 5.0 T-piece 5.0 05/19/19 20:00 98.5 97 24 151/62 (91) 100 05/19/19 20:00 5.0 28 05/19/19 19:24 100 05/19/19 19:12 100 T-Piece 5.0 28 05/19/19 19:11 98 23 100 T-Piece 5.0 28 100 22 99 05/19/19 19:00 99 22 149/80 (103) 98 05/19/19 18:00 99.3 101 24 149/80 (103) 100 05/19/19 17:00 105 23 132/60 (84) 100 05/19/19 16:00 5.0 28 05/19/19 16:00 T-piece 5.0 T-piece 5.0 T-piece 5.0 05/19/19 16:00 105 23 106/65 (79) 100 05/19/19 15:20 101 05/19/19 15:02 105 27 100 T-Piece 5.0 28 103 23 99 05/19/19 15:00 105 19 153/58 (89) 100 05/19/19 14:00 108 25 170/146 (154) 98 05/19/19 13:00 106 24 159/69 (99) 98 05/19/19 12:40 100 T-Piece 5.0 28 05/19/19 12:00 99.2 110 22 145/64 (91) 98 05/19/19 12:00 5.0 28 05/19/19 12:00 108 05/19/19 12:00 T-piece 5.0 T-piece 5.0 T-piece 5.0 05/19/19 11:00 105 24 154/69 (97) 98 05/19/19 10:58 103 19 100 T-Piece 5.0 28 104 21 99 05/19/19 10:00 104 25 140/66 (90) 99 05/19/19 09:00 109 23 165/77 (106) 99 Micro: Microbiology Date/Time Source Procedure Growth Status 05/18/19 11:00 Sputum Gram Stain Pending Resulted 05/18/19 11:00 Sputum Culture - Preliminary Gram Negative Bacillus 1 Resulted Accucheck: 110 Critical Care - Subjective ROS Limited/Unobtainable: No Condition: stable FI02: 28 Vent Support Mode: CPAP Vent Tidal Volume: 450 Sputum Amount: Moderate PEEP: 5.0 PIP: 19 Tube Feeding Amount: 60 I&O: Intake and Output 05/19/19 05/20/19 19:00 07:00 Intake Total 1780 ml 1580 ml Output Total 550 ml 1300 ml Balance 1230 ml 280 ml Free Water 300 ml 300 ml IV Total 310 ml 110 ml Tube Feeding 720 ml 720 ml Other 450 ml 450 ml Output Urine Total 550 ml 1000 ml Gastric Drainage Total 300 ml # Bowel Movements 4 2 ET-Tube: 6.0 Bg Moffett MD May 20, 2019 08:03
--- NOTE | 2019-05-20 08:50 | NUR ---
NURSE NOTES: Due medication given as ordered. Addendum: 05/20/19 at 2206 by TORIE AGUILAR RN wrong entry
[2019-05-20] MEDS: levETIRAcetam 500mg/5ml Liquid GT SCH ×2 (09:13→20:32)
[2019-05-20] MEDS: Pantoprazole Inj IVP SCH (09:13)
[2019-05-20] MEDS: Heparin 5000 units/ml inj SUBQ SCH ×2 (09:14→20:33)
--- NOTE | 2019-05-20 09:26 | Nephrology Progress Note ---
Assessment/Plan Problem List: (1) Acute renal failure (ARF) Assessment: Cr stable (2) Chronic respiratory failure (3) Anemia (4) Sepsis Assessment Acute renal failure Respiratory failure - Trach Low Mag- Low k , Low Na Anemia UTI / Sepsis Proteinuria / HypoAlbuminemia high Trigs Sz decubs bed bound DNR Plan no labs today remains on 4 antibiotics Transfused 05/09 has JT bolus Albumin as needed K and Mag and Phos supplement as needed Hydrate as needed Urine studies avoid Nephrotoxics mag K Phos supplements as needed monitor renal parameters Subjective ROS Limited/Unobtainable: Yes Objective Objective Last 24 Hour Vital Signs Date Time Temp Pulse Resp B/P (MAP) Pulse Ox O2 Delivery O2 Flow Rate FiO2 05/20/19 08:00 99.1 102 22 143/66 (91) 99 05/20/19 08:00 T-piece 5.0 T-piece 5.0 T-piece 5.0 05/20/19 08:00 5.0 28 05/20/19 07:04 100 T-Piece 5.0 28 05/20/19 07:04 100 20 100 T-Piece 5.0 28 101 22 100 05/20/19 07:00 103 22 154/70 (98) 99 05/20/19 06:00 102 24 144/62 (89) 98 05/20/19 05:00 102 21 153/68 (96) 98 05/20/19 04:00 T-piece 5.0 T-piece 5.0 T-piece 5.0 05/20/19 04:00 98.4 97 24 142/69 (93) 99 05/20/19 04:00 5.0 28 05/20/19 03:29 101 23 100 T-Piece 5.0 28 103 24 100 05/20/19 03:02 102 05/20/19 03:00 98 22 145/63 (90) 100 05/20/19 02:00 103 23 125/90 (102) 98 05/20/19 01:06 100 T-Piece 5.0 28 05/20/19 01:00 103 21 133/92 (106) 99 05/20/19 00:00 T-piece 5.0 T-piece 5.0 T-piece 5.0 05/20/19 00:00 98.9 98 24 139/63 (88) 100 05/20/19 00:00 5.0 28 05/19/19 23:39 98 21 100 T-Piece 5.0 28 96 24 99 05/19/19 23:15 96 05/19/19 23:00 98 23 136/57 (83) 99 05/19/19 22:00 102 19 143/72 (95) 98 05/19/19 21:00 95 23 150/65 (93) 100 05/19/19 20:00 T-piece 5.0 T-piece 5.0 T-piece 5.0 05/19/19 20:00 98.5 97 24 151/62 (91) 100 05/19/19 20:00 5.0 28 05/19/19 19:24 100 05/19/19 19:12 100 T-Piece 5.0 28 05/19/19 19:11 98 23 100 T-Piece 5.0 28 100 22 99 05/19/19 19:00 99 22 149/80 (103) 98 05/19/19 18:00 99.3 101 24 149/80 (103) 100 05/19/19 17:00 105 23 132/60 (84) 100 05/19/19 16:00 5.0 28 05/19/19 16:00 T-piece 5.0 T-piece 5.0 T-piece 5.0 05/19/19 16:00 105 23 106/65 (79) 100 05/19/19 15:20 101 05/19/19 15:02 105 27 100 T-Piece 5.0 28 103 23 99 05/19/19 15:00 105 19 153/58 (89) 100 05/19/19 14:00 108 25 170/146 (154) 98 05/19/19 13:00 106 24 159/69 (99) 98 05/19/19 12:40 100 T-Piece 5.0 28 05/19/19 12:00 99.2 110 22 145/64 (91) 98 05/19/19 12:00 5.0 28 05/19/19 12:00 108 05/19/19 12:00 T-piece 5.0 T-piece 5.0 T-piece 5.0 05/19/19 11:00 105 24 154/69 (97) 98 05/19/19 10:58 103 19 100 T-Piece 5.0 28 104 21 99 05/19/19 10:00 104 25 140/66 (90) 99 Intake and Output 05/19/19 05/20/19 19:00 07:00 Intake Total 1780 ml 1580 ml Output Total 550 ml 1300 ml Balance 1230 ml 280 ml Free Water 300 ml 300 ml IV Total 310 ml 110 ml Tube Feeding 720 ml 720 ml Other 450 ml 450 ml Output Urine Total 550 ml 1000 ml Gastric Drainage Total 300 ml # Bowel Movements 4 2 Height (Feet): 5 Height (Inches): 3.00 Weight (Pounds): 135 General Appearance: no apparent distress EENT: other - O2 via trach Cardiovascular: tachycardia Respiratory/Chest: decreased breath sounds Abdomen: distended Objective no change rEic Cortez MD May 20, 2019 09:26
--- NOTE | 2019-05-20 10:44 | NUR ---
NURSE NOTES: PT orally suctioned and suctioned via trach, t-piece has secretion white frothy, will continue to monitor PT.
--- NOTE | 2019-05-20 11:18 | Infectious Diseases Prog Note ---
Assessment/Plan Assessment/Plan antibiotics : meropenem, fluconazole A 1. delano parapsilosis fungemia 2. klebsiella sepsis s/p rx s/p catheter removal 3. respiratory failure 4. hypertension 5. CVA 6. dementia 7. rectal VRE colonization 8. leucocytosis improving 9. gram negative pneumonia 10. VRE UTI s/p rx P 1. continue meropenem 2. continue fluconazole 8 more days 3. will follow up cultures Subjective ROS Limited/Unobtainable: Yes Allergies: Coded Allergies: CODEINE (Verified Allergy, Unknown, HIVES, 09/15/09) Objective Vital Signs Last 24 Hour Vital Signs Date Time Temp Pulse Resp B/P (MAP) Pulse Ox O2 Delivery O2 Flow Rate FiO2 05/20/19 10:00 97 23 145/67 (93) 100 05/20/19 09:00 103 23 139/57 (84) 99 05/20/19 08:00 99.1 102 22 143/66 (91) 99 05/20/19 08:00 T-piece 5.0 T-piece 5.0 T-piece 5.0 05/20/19 08:00 5.0 28 05/20/19 08:00 99 05/20/19 07:04 100 T-Piece 5.0 28 05/20/19 07:04 100 20 100 T-Piece 5.0 28 101 22 100 05/20/19 07:00 103 22 154/70 (98) 99 05/20/19 06:00 102 24 144/62 (89) 98 05/20/19 05:00 102 21 153/68 (96) 98 05/20/19 04:00 T-piece 5.0 T-piece 5.0 T-piece 5.0 05/20/19 04:00 98.4 97 24 142/69 (93) 99 05/20/19 04:00 5.0 28 05/20/19 03:29 101 23 100 T-Piece 5.0 28 103 24 100 05/20/19 03:02 102 05/20/19 03:00 98 22 145/63 (90) 100 05/20/19 02:00 103 23 125/90 (102) 98 05/20/19 01:06 100 T-Piece 5.0 28 05/20/19 01:00 103 21 133/92 (106) 99 05/20/19 00:00 T-piece 5.0 T-piece 5.0 T-piece 5.0 05/20/19 00:00 98.9 98 24 139/63 (88) 100 05/20/19 00:00 5.0 28 05/19/19 23:39 98 21 100 T-Piece 5.0 28 96 24 99 05/19/19 23:15 96 05/19/19 23:00 98 23 136/57 (83) 99 05/19/19 22:00 102 19 143/72 (95) 98 05/19/19 21:00 95 23 150/65 (93) 100 05/19/19 20:00 T-piece 5.0 T-piece 5.0 T-piece 5.0 05/19/19 20:00 98.5 97 24 151/62 (91) 100 05/19/19 20:00 5.0 28 05/19/19 19:24 100 05/19/19 19:12 100 T-Piece 5.0 28 05/19/19 19:11 98 23 100 T-Piece 5.0 28 100 22 99 05/19/19 19:00 99 22 149/80 (103) 98 05/19/19 18:00 99.3 101 24 149/80 (103) 100 05/19/19 17:00 105 23 132/60 (84) 100 05/19/19 16:00 5.0 28 05/19/19 16:00 T-piece 5.0 T-piece 5.0 T-piece 5.0 05/19/19 16:00 105 23 106/65 (79) 100 05/19/19 15:20 101 05/19/19 15:02 105 27 100 T-Piece 5.0 28 103 23 99 05/19/19 15:00 105 19 153/58 (89) 100 05/19/19 14:00 108 25 170/146 (154) 98 05/19/19 13:00 106 24 159/69 (99) 98 05/19/19 12:40 100 T-Piece 5.0 28 05/19/19 12:00 99.2 110 22 145/64 (91) 98 05/19/19 12:00 5.0 28 05/19/19 12:00 108 05/19/19 12:00 T-piece 5.0 T-piece 5.0 T-piece 5.0 Height (Feet): 5 Height (Inches): 3.00 Weight (Pounds): 135 HEENT: status post trach Respiratory/Chest: crackles/rales, rhonchi - bilaterally Cardiovascular: normal rate, regular rhythm, no gallop/murmur Abdomen: soft, non tender Extremities: no edema Microbiology Date/Time Source Procedure Growth Status 05/18/19 11:00 Sputum Gram Stain Pending Resulted 05/18/19 11:00 Sputum Culture - Preliminary Gram Negative Bacillus 1 Resulted Current Medications Medications (Trade) Dose Ordered Sig/Maicol Route PRN Reason Start Time Stop Time Status Last Admin Dose Admin Acetaminophen (Tylenol) 650 mg Q4H PRN RECTAL T>100.5 / Mild Pain 05/07/19 09:45 06/06/19 09:44 05/07/19 10:13 Albuterol/ Ipratropium (Albuterol/ Ipratropium) 3 ml Q4HRT HHN 05/16/19 07:40 05/21/19 07:39 05/20/19 07:03 Atropine Sulfate (Atropine Opth Adriana) 1 drop Q6HR SL 05/11/19 00:00 06/10/19 08:59 05/20/19 06:10 Fluconazole/ Sodium Chloride 200 ml @ 100 mls/hr Q24H IV 05/18/19 12:00 05/25/19 11:59 05/19/19 11:06 Heparin Sodium (Porcine) (Heparin 5000 units/ml) 5,000 units EVERY 12 HOURS SUBQ 05/01/19 21:00 05/31/19 20:59 05/20/19 09:14 Hydralazine HCl (Apresoline) 10 mg Q4H PRN IV For High Blood Pressure 05/11/19 05:45 06/10/19 05:44 05/12/19 00:08 Levetiracetam (Keppra) 500 mg Q12HR GT 05/01/19 21:00 05/28/19 08:59 05/20/19 09:13 Meropenem 1 gm/ Sodium Chloride 110 ml @ 220 mls/hr Q12HR@0000,1200 IVPB 05/19/19 12:00 05/24/19 11:59 05/19/19 23:21 Pantoprazole (Protonix) 40 mg DAILY IVP 05/15/19 18:15 06/14/19 18:14 05/20/19 09:13 Geovany Yang MD May 20, 2019 11:18
[2019-05-20] MEDS: Meropenem 1gm/NS 110ml IVPB SCH ×2 (12:10)
--- NOTE | 2019-05-20 12:30 | NUR ---
NURSE NOTES: PT suctioned, frothy secretions still noted from t-piece and oral; VS stable, will continue to monitor PT.
--- NOTE | 2019-05-20 14:00 | NUR ---
NURSE NOTES: PT wound care done with wound care nurse Zia, all dressings changed, wiped, cleaned, dried PT, remains on p200 mattress, will continue to monitor PT.
--- NOTE | 2019-05-20 15:40 | NUR ---
NURSE NOTES: Antifungal cream at bedside, instructions given to apply BID w/ triad cream. Antifungal powder at bedside also, instructions given to apply BID to L-breast, antecubital, L-axillae. Will apply cream as instructed.
--- NOTE | 2019-05-20 17:28 | NUR ---
NURSE NOTES:WOUND CARE FOLLOW-UP NOTES:Pt having frequent loose B.MsMichelle NYE noted to lumbar -sacral area and buttocks. Erythema with moisture denudement and satellite lesions noted to lumbar-sacral, Sacrum,R and L buttocks,both ischium and extends into perineum. Sites of recently resolved pressure injuries R and L ischium noted to be denuded and excoriated.. Bilat groin area,including mons pubis and medial aspects of both upper thighs grossly red and denuded. L breast ,L upper abd, L axilla and medial upper arm grossly red and macerated.Mild odor noted. Wound Web space of L index and L thumb has resolved. Skin Assessed under collar of trach and no evidence of skin breakdown noted. Bilat foot drop noted . Both heels and malleoli both feet are blanchable. Tx.Plan: Cleanse skin L breast ,L upper abd ,L axilla and L upper arm. Pat dry. Apply Light dusting of Antifungal powder to affected areas Twice Daily. Apply Remedy Antifungal Cream to lumbar sacral area, Buttocks ,Bilat Groin and Perineum Twice daily. May apply 1:1 application with Triad Paste. Apply Triad Paste to abd folds, Bilat groin and buttocks with each incontinence care. Apply Cavilon Skin Barrier to both heels and Malleoli both feet. Cover each areas with Optifoam drsg every 7 days and prn. Reposition at least every 2hours or as tolerated. APM/LAURITA Mattress overlay. Off-load heels with pillow.
--- NOTE | 2019-05-20 17:41 | NUR ---
NURSE NOTES: Anti-fungal powder and cream applied as directed. No BM noted, new urine container attached to wall suction; will continue to monitor PT.
--- NOTE | 2019-05-20 19:22 | NUR ---
NURSE NOTES: Received report from JEANNINE Suggs. Patient is obtunded. Afebrile. Noted with shiley 6 with FiO2 28%. And Fio2 97% on the montior. GJ tube intact and running with Vital 1.2 @ 60ml/hr via Gtube. Right foot 24G IV intact and clean with TKO. Kept dry, clean, comfortable and HOB>30. Will continue plan of care.
--- NOTE | 2019-05-20 19:22 | NUR ---
HAND-OFF: Report and PT given to JEANNINE Del Rosario.
--- NOTE | 2019-05-20 20:16 | General Progress Note ---
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 - Anemia with OB (-) stools - Resp failure, s/p Trach - OBS, vegetative obtunded unresponsive state, bedbound with contracted extremities - h/o minor GJ tube site irritation - poor Prognosis Recommendations - No plans for immune suppression at this time (risk benefit ratio in favor of holding off Rx) - abx per ID - PPI daily - Cristian BID - antibiotic ointment to GJT site PRN - aspiration precautions - elevate HOB - Vital AF 1.2 - transfuse to keep Hg > 7 - J tube feeds - G tube ---> LIS - check ESR --> elevated - further evaluation for autoimmune hepatitis (anti DNA) - second Anti- DNA pending Subjective Allergies: Coded Allergies: CODEINE (Verified Allergy, Unknown, HIVES, 09/15/09) Subjective above noted d/w RN tolerating TF Objective Last 24 Hour Vital Signs Date Time Temp Pulse Resp B/P (MAP) Pulse Ox O2 Delivery O2 Flow Rate FiO2 05/20/19 19:06 100 T-Piece 5.0 28 05/20/19 19:05 97 21 100 T-Piece 5.0 28 96 19 100 05/20/19 18:00 98 19 148/76 (100) 100 05/20/19 17:00 98 21 147/68 (94) 99 05/20/19 16:00 5.0 28 05/20/19 16:00 T-piece 5.0 T-piece 5.0 T-piece 5.0 05/20/19 16:00 100 05/20/19 16:00 98.3 94 22 167/64 (98) 100 05/20/19 15:59 95 20 100 T-Piece 5.0 28 93 20 100 05/20/19 15:00 99 20 157/73 (101) 100 05/20/19 14:00 102 22 147/64 (91) 100 05/20/19 13:43 100 T-Piece 5.0 28 05/20/19 13:00 101 24 125/58 (80) 100 05/20/19 12:00 T-piece 5.0 T-piece 5.0 T-piece 5.0 05/20/19 12:00 5.0 28 05/20/19 12:00 104 05/20/19 12:00 97.9 96 23 138/58 (84) 100 05/20/19 11:31 101 22 100 T-Piece 5.0 28 98 23 100 05/20/19 11:00 96 23 131/56 (81) 99 05/20/19 10:00 97 23 145/67 (93) 100 05/20/19 09:00 103 23 139/57 (84) 99 05/20/19 08:00 99.1 102 22 143/66 (91) 99 05/20/19 08:00 T-piece 5.0 T-piece 5.0 T-piece 5.0 05/20/19 08:00 5.0 28 05/20/19 08:00 99 05/20/19 07:04 100 T-Piece 5.0 28 05/20/19 07:04 100 20 100 T-Piece 5.0 28 101 22 100 05/20/19 07:00 103 22 154/70 (98) 99 05/20/19 06:00 102 24 144/62 (89) 98 05/20/19 05:00 102 21 153/68 (96) 98 05/20/19 04:00 T-piece 5.0 T-piece 5.0 T-piece 5.0 05/20/19 04:00 98.4 97 24 142/69 (93) 99 05/20/19 04:00 5.0 28 05/20/19 03:29 101 23 100 T-Piece 5.0 28 103 24 100 05/20/19 03:02 102 05/20/19 03:00 98 22 145/63 (90) 100 05/20/19 02:00 103 23 125/90 (102) 98 05/20/19 01:06 100 T-Piece 5.0 28 05/20/19 01:00 103 21 133/92 (106) 99 05/20/19 00:00 T-piece 5.0 T-piece 5.0 T-piece 5.0 05/20/19 00:00 98.9 98 24 139/63 (88) 100 05/20/19 00:00 5.0 28 05/19/19 23:39 98 21 100 T-Piece 5.0 28 96 24 99 05/19/19 23:15 96 05/19/19 23:00 98 23 136/57 (83) 99 05/19/19 22:00 102 19 143/72 (95) 98 05/19/19 21:00 95 23 150/65 (93) 100 Intake and Output 05/19/19 05/20/19 19:00 07:00 Intake Total 1780 ml 1580 ml Output Total 550 ml 1300 ml Balance 1230 ml 280 ml Free Water 300 ml 300 ml IV Total 310 ml 110 ml Tube Feeding 720 ml 720 ml Other 450 ml 450 ml Output Urine Total 550 ml 1000 ml Gastric Drainage Total 300 ml # Bowel Movements 4 2 Height (Feet): 5 Height (Inches): 3.00 Weight (Pounds): 135 Objective Debilitated AA woman non-verbal, obtunded NCAT (+) trach coarse BS RR obese abd, (+) GJT, (+) (L) trunk edema no edema (+) contractured extremities Celio Vaughan MD May 20, 2019 20:16
--- NOTE | 2019-05-20 20:50 | NUR ---
NURSE NOTES: Due medication given as ordered.
--- NOTE | 2019-05-20 21:27 | NUR ---
NURSE NOTES: Repositioned patient and provided oral care.
--- NOTE | 2019-05-20 22:24 | NUR ---
NURSE NOTES: Repositioned patient. Oral suction given.
[2019-05-21] VITALS (23 sets, daily range): BP systolic 120–177; BP diastolic 56–84
[2019-05-21] MEDS: Meropenem 1gm/NS 110ml IVPB SCH ×2 (00:05)
--- NOTE | 2019-05-21 00:28 | NUR ---
NURSE NOTES: Repositioned patient. Kept dry, clean and comfortable.
--- NOTE | 2019-05-21 02:05 | NUR ---
NURSE NOTES: Provided trach and oral suction and oral care given. Repositioned patient.
--- NOTE | 2019-05-21 02:30 | Progress Note ---
DATE: 05/20/2019 CARDIOLOGY PROGRESS NOTE SUBJECTIVE: The patient is tolerating tube feedings. No respiratory distress. OBJECTIVE: VITAL SIGNS: Blood pressure 148/76, pulse 98, respirations 19. NECK: T-tube site with thin secretions. LUNGS: Bilateral breath sounds. CARDIAC: Regular rhythm and rate. Normal S1, S2. ABDOMEN: Soft. GJ tube site intact. EXTREMITIES: No edema. IMPRESSION: 1. 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 2. Bacteremia and fungemia. 3. Chronic diastolic congestive heart failure. 4. Hypertensive heart disease. 5. Respiratory failure. 6. Advanced dementia. PLAN: 1. Ventilator support. 2. Nutrition by feeding tube. 3. Continue beta-martha. 4. Concur with Dr. Vaughan from GI the patient is not a candidate for immunosuppressive therapy. 5. Continue antimicrobials per Infectious Disease wealth management consultant. Bg Hagen M.D. DR: PHUONG JOB#: [id number] CC:
[2019-05-21] MEDS: Albuterol/Ipratropium 3ml neb HHN SCH ×2 (03:25→06:49)
--- NOTE | 2019-05-21 04:22 | NUR ---
NURSE NOTES: Bed bath given. Changed wound dressing. Kept dry, clean and comfortable.
--- NOTE | 2019-05-21 06:02 | NUR ---
NURSE NOTES: Repositioned patient. Oral care given. No distress/SOB noted.
--- NOTE | 2019-05-21 07:07 | NUR ---
HAND-OFF: Report given to JEANNINE Gilmore. Endorsed plan of care.
--- NOTE | 2019-05-21 07:08 | NUR ---
NURSE NOTES: RECEIVED PATIENT FROM Bettie AGUILAR RN. PATIENT IS LYING IN BED, ASLEEP. HOOKED TO LABORATORY VETERINARIAN. T-PIECE SHILEY 6, XLT CONNECTED TO COOL AEROSOL 28%, 5L. NO SIGNS OF DISTRESS OF THE MOMENT. G-JT IN PLACE. J-TUBE RUNNING VITAL AF AT 60ML/HR. AND G-TUBE CONNECT TO LIS. ON P[place]. NOTED SKIN ALTERATION. ON P200 MATTRESS. PIV ON R F G24, TKO. CALL LIGHT WITHIN REACH. BED AT LOWEST POSITION. SIDE RAILS UP. WILL CONTINUE TO MONITOR.
--- NOTE | 2019-05-21 08:27 | Nephrology Progress Note ---
Assessment/Plan Problem List: (1) Acute renal failure (ARF) Assessment: Cr stable (2) Chronic respiratory failure (3) Anemia (4) Sepsis Assessment Acute renal failure Respiratory failure - Trach Low Mag- Low k , Low Na Anemia UTI / Sepsis Proteinuria / HypoAlbuminemia high Trigs Sz decubs bed bound DNR Plan no labs today remains on 4 antibiotics Transfused 05/09 has JT bolus Albumin as needed K and Mag and Phos supplement as needed Hydrate as needed Urine studies avoid Nephrotoxics mag K Phos supplements as needed monitor renal parameters Subjective ROS Limited/Unobtainable: Yes Objective Objective Last 24 Hour Vital Signs Date Time Temp Pulse Resp B/P (MAP) Pulse Ox O2 Delivery O2 Flow Rate FiO2 05/21/19 08:00 5.0 28 05/21/19 06:50 105 23 100 T-Piece 5.0 28 102 22 99 05/21/19 06:50 100 T-Piece 5.0 28 05/21/19 06:00 101 23 157/66 (96) 100 05/21/19 05:00 103 25 153/67 (95) 99 05/21/19 04:00 5.0 28 05/21/19 04:00 T-piece 5.0 T-piece 5.0 T-piece 5.0 05/21/19 04:00 107 05/21/19 04:00 99.3 104 23 160/75 (103) 05/21/19 03:25 103 20 100 T-Piece 5.0 28 104 19 99 05/21/19 03:00 106 24 143/62 (89) 99 05/21/19 02:00 104 25 150/64 (92) 98 05/21/19 01:00 104 23 151/69 (96) 100 05/21/19 00:23 100 T-Piece 5.0 28 05/21/19 00:00 T-piece 5.0 T-piece 5.0 T-piece 5.0 05/21/19 00:00 5.0 28 05/21/19 00:00 102 05/21/19 00:00 108 21 159/69 (99) 100 05/20/19 23:00 97.8 101 22 142/63 (89) 100 05/20/19 22:56 102 20 100 T-Piece 5.0 28 99 20 100 05/20/19 22:00 110 19 158/70 (99) 99 05/20/19 21:00 105 17 155/66 (95) 100 05/20/19 20:00 98 05/20/19 20:00 98.0 99 20 144/124 (131) 99 05/20/19 20:00 5.0 28 05/20/19 20:00 T-piece 5.0 T-piece 5.0 T-piece 5.0 05/20/19 19:06 100 T-Piece 5.0 28 05/20/19 19:05 97 21 100 T-Piece 5.0 28 96 19 100 05/20/19 19:00 97 19 146/63 (90) 99 05/20/19 18:00 98 19 148/76 (100) 100 05/20/19 17:00 98 21 147/68 (94) 99 05/20/19 16:00 5.0 28 05/20/19 16:00 T-piece 5.0 T-piece 5.0 T-piece 5.0 05/20/19 16:00 100 05/20/19 16:00 98.3 94 22 167/64 (98) 100 05/20/19 15:59 95 20 100 T-Piece 5.0 28 93 20 100 05/20/19 15:00 99 20 157/73 (101) 100 05/20/19 14:00 102 22 147/64 (91) 100 05/20/19 13:43 100 T-Piece 5.0 28 05/20/19 13:00 101 24 125/58 (80) 100 05/20/19 12:00 T-piece 5.0 T-piece 5.0 T-piece 5.0 05/20/19 12:00 5.0 28 05/20/19 12:00 104 05/20/19 12:00 97.9 96 23 138/58 (84) 100 05/20/19 11:31 101 22 100 T-Piece 5.0 28 98 23 100 05/20/19 11:00 96 23 131/56 (81) 99 05/20/19 10:00 97 23 145/67 (93) 100 05/20/19 09:00 103 23 139/57 (84) 99 Intake and Output 05/20/19 05/21/19 19:00 07:00 Intake Total 1780 ml 1580 ml Output Total 800 ml 820 ml Balance 980 ml 760 ml Free Water 300 ml 300 ml IV Total 310 ml 110 ml Tube Feeding 720 ml 720 ml Other 450 ml 450 ml Output Urine Total 800 ml 700 ml Gastric Drainage Total 120 ml # Bowel Movements 1 Height (Feet): 5 Height (Inches): 3.00 Weight (Pounds): 129 General Appearance: no apparent distress EENT: other - trach to O2 Respiratory/Chest: decreased breath sounds Abdomen: soft Objective no change Eric Cortez MD May 21, 2019 08:27
[2019-05-21] MEDS: levETIRAcetam 500mg/5ml Liquid GT SCH ×2 (08:34→20:28)
[2019-05-21] MEDS: Pantoprazole Inj IVP SCH (08:34)
[2019-05-21] MEDS: Heparin 5000 units/ml inj SUBQ SCH ×2 (08:37→20:29)
--- NOTE | 2019-05-21 08:44 | NUR ---
NURSE NOTES: SEEN AND EXAMINED BY DR RAYMOND WITH NEW ORDERS MADE. ORAL CARE DONE. WILL CONTINUE TO MONITOR.
--- NOTE | 2019-05-21 09:42 | Infectious Diseases Prog Note ---
Assessment/Plan Assessment/Plan A 1.Pseudomonas & Providencia pneumonia 2.Chronic respiratory failure 3. hypertension 4. CVA 5. dementia 6. sacral decubitus ulcer 7. rectal VRE colonization 8. Anemia 9. Proteus UTI 10. Acute renal failure 11. Sepsis with Klebsiella ( KPC), treated 12.delano Parapsilosis sepsis P 1 continue Fluconazole X 7 days 2.Discontinue meropenem 3. Start on Amikacin inhaler Subjective Constitutional: Denies: fever Allergies: Coded Allergies: CODEINE (Verified Allergy, Unknown, HIVES, 09/15/09) Objective Vital Signs Last 24 Hour Vital Signs Date Time Temp Pulse Resp B/P (MAP) Pulse Ox O2 Delivery O2 Flow Rate FiO2 05/21/19 08:00 5.0 28 05/21/19 06:50 105 23 100 T-Piece 5.0 28 102 22 99 05/21/19 06:50 100 T-Piece 5.0 28 05/21/19 06:00 101 23 157/66 (96) 100 05/21/19 05:00 103 25 153/67 (95) 99 05/21/19 04:00 5.0 28 05/21/19 04:00 T-piece 5.0 T-piece 5.0 T-piece 5.0 05/21/19 04:00 107 05/21/19 04:00 99.3 104 23 160/75 (103) 05/21/19 03:25 103 20 100 T-Piece 5.0 28 104 19 99 05/21/19 03:00 106 24 143/62 (89) 99 05/21/19 02:00 104 25 150/64 (92) 98 05/21/19 01:00 104 23 151/69 (96) 100 05/21/19 00:23 100 T-Piece 5.0 28 05/21/19 00:00 T-piece 5.0 T-piece 5.0 T-piece 5.0 05/21/19 00:00 5.0 28 05/21/19 00:00 102 05/21/19 00:00 108 21 159/69 (99) 100 05/20/19 23:00 97.8 101 22 142/63 (89) 100 05/20/19 22:56 102 20 100 T-Piece 5.0 28 99 20 100 05/20/19 22:00 110 19 158/70 (99) 99 05/20/19 21:00 105 17 155/66 (95) 100 05/20/19 20:00 98 05/20/19 20:00 98.0 99 20 144/124 (131) 99 05/20/19 20:00 5.0 28 05/20/19 20:00 T-piece 5.0 T-piece 5.0 T-piece 5.0 05/20/19 19:06 100 T-Piece 5.0 28 05/20/19 19:05 97 21 100 T-Piece 5.0 28 96 19 100 05/20/19 19:00 97 19 146/63 (90) 99 05/20/19 18:00 98 19 148/76 (100) 100 05/20/19 17:00 98 21 147/68 (94) 99 05/20/19 16:00 5.0 28 05/20/19 16:00 T-piece 5.0 T-piece 5.0 T-piece 5.0 05/20/19 16:00 100 05/20/19 16:00 98.3 94 22 167/64 (98) 100 05/20/19 15:59 95 20 100 T-Piece 5.0 28 93 20 100 05/20/19 15:00 99 20 157/73 (101) 100 05/20/19 14:00 102 22 147/64 (91) 100 05/20/19 13:43 100 T-Piece 5.0 28 05/20/19 13:00 101 24 125/58 (80) 100 05/20/19 12:00 T-piece 5.0 T-piece 5.0 T-piece 5.0 05/20/19 12:00 5.0 28 05/20/19 12:00 104 05/20/19 12:00 97.9 96 23 138/58 (84) 100 05/20/19 11:31 101 22 100 T-Piece 5.0 28 98 23 100 05/20/19 11:00 96 23 131/56 (81) 99 05/20/19 10:00 97 23 145/67 (93) 100 Height (Feet): 5 Height (Inches): 3.00 Weight (Pounds): 129 HEENT: status post trach Respiratory/Chest: rhonchi - bilaterally, other - on T bar Cardiovascular: tachycardia Abdomen: soft, non tender, other - Gt feeding Extremities: no edema Neurologic/Psychiatric: aphasia Microbiology Date/Time Source Procedure Growth Status 05/18/19 11:00 Sputum Gram Stain - Final Resulted 05/18/19 11:00 Sputum Culture - Preliminary Pseudomonas Aeruginosa - Mdr Providencia Stuartii Gram Negative Denzel Resulted Current Medications Medications (Trade) Dose Ordered Sig/Maicol Route PRN Reason Start Time Stop Time Status Last Admin Dose Admin Acetaminophen (Tylenol) 650 mg Q4H PRN RECTAL T>100.5 / Mild Pain 05/07/19 09:45 06/06/19 09:44 05/07/19 10:13 Atropine Sulfate (Atropine Opth Adriana) 1 drop Q6HR SL 05/11/19 00:00 06/10/19 08:59 05/21/19 05:07 Fluconazole/ Sodium Chloride 200 ml @ 100 mls/hr Q24H IV 05/18/19 12:00 05/25/19 11:59 05/20/19 12:10 Heparin Sodium (Porcine) (Heparin 5000 units/ml) 5,000 units EVERY 12 HOURS SUBQ 05/01/19 21:00 05/31/19 20:59 05/21/19 08:37 Hydralazine HCl (Apresoline) 10 mg Q4H PRN IV For High Blood Pressure 05/11/19 05:45 06/10/19 05:44 05/12/19 00:08 Levetiracetam (Keppra) 500 mg Q12HR GT 05/01/19 21:00 05/28/19 08:59 05/21/19 08:34 Meropenem 1 gm/ Sodium Chloride 110 ml @ 220 mls/hr Q12HR@0000,1200 IVPB 05/19/19 12:00 05/24/19 11:59 05/21/19 00:05 Pantoprazole (Protonix) 40 mg DAILY IVP 05/15/19 18:15 06/14/19 18:14 05/21/19 08:34 Chauncey Liriano MD May 21, 2019 09:42
--- NOTE | 2019-05-21 10:08 | General Progress Note ---
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 - Anemia with OB (-) stools - Resp failure, s/p Trach - OBS, vegetative obtunded unresponsive state, bedbound with contracted extremities - h/o minor GJ tube site irritation - poor Prognosis Recommendations - No plans for immune suppression at this time (risk benefit ratio in favor of holding off Rx) - abx per ID - PPI daily - Cristian BID - antibiotic ointment to GJT site PRN - aspiration precautions - elevate HOB - Vital AF 1.2 - transfuse to keep Hg > 7 - J tube feeds - G tube ---> LIS - check ESR --> elevated - further evaluation for autoimmune hepatitis (anti DNA) - DS DNA neg, SS DNA pending Subjective Allergies: Coded Allergies: CODEINE (Verified Allergy, Unknown, HIVES, 09/15/09) Subjective above noted d/w RN tolerating TF Objective Last 24 Hour Vital Signs Date Time Temp Pulse Resp B/P (MAP) Pulse Ox O2 Delivery O2 Flow Rate FiO2 05/21/19 10:00 98 23 136/68 (90) 97 05/21/19 09:00 98 20 155/71 (99) 99 05/21/19 09:00 98 20 155/71 (99) 99 05/21/19 08:00 5.0 28 05/21/19 08:00 T-piece 5.0 T-piece 5.0 T-piece 5.0 05/21/19 07:00 101 21 158/64 (95) 100 05/21/19 06:50 105 23 100 T-Piece 5.0 28 102 22 99 05/21/19 06:50 100 T-Piece 5.0 28 05/21/19 06:00 101 23 157/66 (96) 100 05/21/19 05:00 103 25 153/67 (95) 99 05/21/19 04:00 5.0 28 05/21/19 04:00 T-piece 5.0 T-piece 5.0 T-piece 5.0 05/21/19 04:00 107 05/21/19 04:00 99.3 104 23 160/75 (103) 05/21/19 03:25 103 20 100 T-Piece 5.0 28 104 19 99 05/21/19 03:00 106 24 143/62 (89) 99 05/21/19 02:00 104 25 150/64 (92) 98 05/21/19 01:00 104 23 151/69 (96) 100 05/21/19 00:23 100 T-Piece 5.0 28 05/21/19 00:00 T-piece 5.0 T-piece 5.0 T-piece 5.0 05/21/19 00:00 5.0 28 05/21/19 00:00 102 05/21/19 00:00 108 21 159/69 (99) 100 05/20/19 23:00 97.8 101 22 142/63 (89) 100 05/20/19 22:56 102 20 100 T-Piece 5.0 28 99 20 100 05/20/19 22:00 110 19 158/70 (99) 99 05/20/19 21:00 105 17 155/66 (95) 100 05/20/19 20:00 98 05/20/19 20:00 98.0 99 20 144/124 (131) 99 05/20/19 20:00 5.0 28 05/20/19 20:00 T-piece 5.0 T-piece 5.0 T-piece 5.0 05/20/19 19:06 100 T-Piece 5.0 28 05/20/19 19:05 97 21 100 T-Piece 5.0 28 96 19 100 05/20/19 19:00 97 19 146/63 (90) 99 05/20/19 18:00 98 19 148/76 (100) 100 05/20/19 17:00 98 21 147/68 (94) 99 05/20/19 16:00 5.0 28 05/20/19 16:00 T-piece 5.0 T-piece 5.0 T-piece 5.0 05/20/19 16:00 100 05/20/19 16:00 98.3 94 22 167/64 (98) 100 05/20/19 15:59 95 20 100 T-Piece 5.0 28 93 20 100 05/20/19 15:00 99 20 157/73 (101) 100 05/20/19 14:00 102 22 147/64 (91) 100 05/20/19 13:43 100 T-Piece 5.0 28 05/20/19 13:00 101 24 125/58 (80) 100 05/20/19 12:00 T-piece 5.0 T-piece 5.0 T-piece 5.0 05/20/19 12:00 5.0 28 05/20/19 12:00 104 05/20/19 12:00 97.9 96 23 138/58 (84) 100 05/20/19 11:31 101 22 100 T-Piece 5.0 28 98 23 100 05/20/19 11:00 96 23 131/56 (81) 99 Intake and Output 05/20/19 05/21/19 19:00 07:00 Intake Total 1780 ml 1580 ml Output Total 800 ml 820 ml Balance 980 ml 760 ml Free Water 300 ml 300 ml IV Total 310 ml 110 ml Tube Feeding 720 ml 720 ml Other 450 ml 450 ml Output Urine Total 800 ml 700 ml Gastric Drainage Total 120 ml # Bowel Movements 1 Height (Feet): 5 Height (Inches): 3.00 Weight (Pounds): 129 Objective Debilitated AA woman non-verbal, obtunded NCAT (+) trach coarse BS RR obese abd, (+) GJT, (+) (L) trunk edema no edema (+) contractured extremities Celio Vaughan MD May 21, 2019 10:08
--- NOTE | 2019-05-21 10:30 | NUR ---
NURSE NOTES: TURNED AND REPOSITIONED PATIENT. WILL CONTINUE TO MONITOR.
[2019-05-21] MEDS: Amikacin for Inhalation 2ML INH SCH ×2 (10:54→22:08)
--- NOTE | 2019-05-21 12:11 | NUR ---
NURSE NOTES: SEEN AND EXAMINED BY DR HER. NNO. TOLERATING TUBE FEEDING. WILL CONTINUE TO MONITOR.
--- NOTE | 2019-05-21 13:34 | Surgery Progress Note ---
Surgery Progress Note Subjective Additional Comments stable Objective Last 24 Hour Vital Signs Date Time Temp Pulse Resp B/P (MAP) Pulse Ox O2 Delivery O2 Flow Rate FiO2 05/21/19 13:00 98 24 164/76 (105) 99 05/21/19 12:30 100 T-Piece 5.0 28 05/21/19 12:00 96 23 143/77 (99) 98 05/21/19 12:00 97 05/21/19 11:00 98 23 120/56 (77) 98 05/21/19 10:00 98 23 136/68 (90) 97 05/21/19 09:00 98 20 155/71 (99) 99 05/21/19 09:00 98 20 155/71 (99) 99 05/21/19 08:00 5.0 28 05/21/19 08:00 98 05/21/19 08:00 T-piece 5.0 T-piece 5.0 T-piece 5.0 05/21/19 07:00 101 21 158/64 (95) 100 05/21/19 06:50 105 23 100 T-Piece 5.0 28 102 22 99 05/21/19 06:50 100 T-Piece 5.0 28 05/21/19 06:00 101 23 157/66 (96) 100 05/21/19 05:00 103 25 153/67 (95) 99 05/21/19 04:00 5.0 28 05/21/19 04:00 T-piece 5.0 T-piece 5.0 T-piece 5.0 05/21/19 04:00 107 05/21/19 04:00 99.3 104 23 160/75 (103) 05/21/19 03:25 103 20 100 T-Piece 5.0 28 104 19 99 05/21/19 03:00 106 24 143/62 (89) 99 05/21/19 02:00 104 25 150/64 (92) 98 05/21/19 01:00 104 23 151/69 (96) 100 05/21/19 00:23 100 T-Piece 5.0 28 05/21/19 00:00 T-piece 5.0 T-piece 5.0 T-piece 5.0 05/21/19 00:00 5.0 28 05/21/19 00:00 102 2/20/20 00:00 108 21 159/69 (99) 100 05/20/19 23:00 97.8 101 22 142/63 (89) 100 05/20/19 22:56 102 20 100 T-Piece 5.0 28 99 20 100 05/20/19 22:00 110 19 158/70 (99) 99 05/20/19 21:00 105 17 155/66 (95) 100 05/20/19 20:00 98 05/20/19 20:00 98.0 99 20 144/124 (131) 99 05/20/19 20:00 5.0 28 05/20/19 20:00 T-piece 5.0 T-piece 5.0 T-piece 5.0 05/20/19 19:06 100 T-Piece 5.0 28 05/20/19 19:05 97 21 100 T-Piece 5.0 28 96 19 100 05/20/19 19:00 97 19 146/63 (90) 99 05/20/19 18:00 98 19 148/76 (100) 100 05/20/19 17:00 98 21 147/68 (94) 99 05/20/19 16:00 5.0 28 05/20/19 16:00 T-piece 5.0 T-piece 5.0 T-piece 5.0 05/20/19 16:00 100 05/20/19 16:00 98.3 94 22 167/64 (98) 100 05/20/19 15:59 95 20 100 T-Piece 5.0 28 93 20 100 05/20/19 15:00 99 20 157/73 (101) 100 05/20/19 14:00 102 22 147/64 (91) 100 05/20/19 13:43 100 T-Piece 5.0 28 I&O Intake and Output 05/20/19 05/21/19 19:00 07:00 Intake Total 1780 ml 1580 ml Output Total 800 ml 820 ml Balance 980 ml 760 ml Free Water 300 ml 300 ml IV Total 310 ml 110 ml Tube Feeding 720 ml 720 ml Other 450 ml 450 ml Output Urine Total 800 ml 700 ml Gastric Drainage Total 120 ml # Bowel Movements 1 Dressing: other Wound: other Cardiovascular: RSR Respiratory: decreased breath sounds Abdomen: soft, present bowel sounds Extremities: no cyanosis Plan Problems: (1) Sacral decubitus ulcer Assessment & Plan: This is a 83-year-old female with multiple medical committees that is currently admitted for medical care and management and identified to have multiple wounds requiring care. On admission patient noted to have a resolved sacral decubitus ulcer. Has had prior care and is well-healed at this time. Will ensure it does not open up again. Patient has a right ischial decubitus ulcer that is resolved. Scar intact and well formed. Will monitor to ensure it does not open up again. Patient has a left ischial decubitus ulcer that can be identified to be stage IV with palpable bone that has been resolving as noted by the periwound tissue and scar but open area approximately 1 cm x 1.5 cm few millimeters deep to bone identified. Unsure if this is been to be completely healed prior and has since opened or if has been healing at this level. No foul odor no drainage was unsure local wound care until healed Bilateral heels soft without signs of injury Resolving pressure injury L ischium(L)1.8cm x (W)1cm.Scattered biofilm at base of wound. Edges flat and adherent with surrounding hyperpigmentation. No odor or exudate noted. Sacrum is pale pink with surrounding hyperpigmentation. Hyperpigmentation R ischium with small sheared area centrally.No areas of erythema or exudate noted. Both heels are soft but blanchable. Skin Assessed under collar of trach and no evidence of skin breakdown noted. All wound Tx. are effective and continued as ordered. Pt ahs an APM/Belén mattress overlay and is being repositioned per protocols and per tolerance.No new skin concerns noted. Full thickness pressure injury L Ischium with small amt biofilm (L)1.8cm x (W) 1cm. Surrounding pink hyperpigmentation. No odor or exudate noted. [place] hyperpigmentation from previous wound noted to sacrum. Pt also noted to have Cat 2 Skin Tear dorsal L hand, L 5th metatarsal extending into palm of hand. 80% skin flap in situ.Both heels are dry firm and blanchable. No other skin concerns noted. R ischial wound has resolved. [place] epithelial with surrounding hyperpigmentation. from historical wound. Full thickness pressure injury L ischium. [place] granulation at base of wound. Borders are macerated with Surrounding hyperpigmentation.Small amt non-odorous serous exudate noted.(L)0.7cm x (W)0.8cm. Skin hyperpigmentation from historical wound noted to Sacrum. Small sheared area noted to sacrococcygeal area.(L)0.4cm x (W)0.3cm.Small amt sanguineous exudate noted. Reabsorbed blister with semi-detached dry necrotic cap noted to web space of L thumb and L index fingers extending into palm of L hand. No odor or exudate noted. Skin assessed under tracheal collar and no erythema or evidence of Skin Breakdown noted. NO new skin concerns noted . Good hand hygiene provided to both hands. R hand contracted and fisted. Fingernails trimmed. Wound care provided along with Primary nurse. Wound Tx continued as ordered. New order obtained from to apply Betadine to wound L hand Daily. Tx done as ordered. L hand wrapped with kerlix weaving kerlix between fingers to separate fingers. Moisture Barrier applied to sacrum ,R ischium. Each site covered with Optifoam drsg. Both lower ext washed and moisturized. Cavilon Skin Barrier applied to both heels.Each heel covered with Optifoam drsgs. Pt positioned with pillows and both heels off-loaded with pillow. Pt wounds are resolving. Loose necrotic cap within web space of L index finger and L thumb easily removed with gentle friction. Base of wound is hypergranular with 10% necrosis. Borders are macerated. Application of Silver Nitrate to hypergranular base done. Cavilon Skin Barrier applied to borders . Good hand hygiene provided. Wound covered with Abd pad. L hand wrapped with Kerlix weaving Kerlix between digitsof L hand. Pressure injury L ischium resolving. Base iof wound is pale pink and dry with surrounding hyperpigmentation and scar from previous wound. Hyperpigmentation with historical scars noted to Sacrum and R ischium. Both heels are soft and blanchable. Skin Assessed under trach collar and no evidence of skin breakdown noted. Pt having frequent loose B.Ms. NYE noted to lumbar -sacral area and buttocks. Erythema with moisture denudement and satellite lesions noted to lumbar-sacral, Sacrum,R and L buttocks,both ischium and extends into perineum. Sites of recently resolved pressure injuries R and L ischium noted to be denuded and excoriated. Unfortunately her current medical condition this is inevitable decline as we have done our best to ensure proper care with extensive attention paid to the patient at all times. Bilat groin area,including mons pubis and medial aspects of both upper thighs grossly red and denuded. L breast ,L upper abd, L axilla and medial upper arm grossly red and macerated.Mild odor noted. Wound Web space of L index and L thumb has resolved. Skin Assessed under collar of trach and no evidence of skin breakdown noted. Bilat foot drop noted . Both heels and malleoli both feet are blanchable. Tx.Plan: Apply Betadine to wound L hand. Cover with Gauze and wrap with Kerlix Daily and prn. Cleanse skin L breast ,L upper abd ,L axilla and L upper arm. Pat dry. Apply Light dusting of Antifungal powder to affected areas Twice Daily. Apply Remedy Antifungal Cream to lumbar sacral area, Buttocks ,Bilat Groin and Perineum Twice daily. May apply 1:1 application with Triad Paste. Apply Triad Paste to abd folds, Bilat groin and buttocks with each incontinence care. Apply Cavilon Skin Barrier to both heels and Malleoli both feet. Cover each areas with Optifoam drsg every 7 days and prn. Cleanse L ischial wound with Saline. Apply Therahoney. Apply Moisture Barrier periwound. Cover with Optifoam drsgevery 3 days and prn. Apply Moisture Barrier Paste to R ischium and Sacrum. Cover each area with Optifoam drsg. Change every 3 days and prn. Apply Cavilon Skin Barrier to both heels. Cover each heel with Optifoam drsg. Change every 7 days and prn. Cleanse Blister Dorsal and palm of L hand with saline. Versatel One Silicone Contact Layer(Applied). Apply Silvasorb Gel. Wrap with Kerlix Gauze.Change every 7 days and prn. Apply Moisture Barrier to sacrum. Cover with Optifoam drsg. Change every 3 days and prn. APM/BELÉN Mattress overlay. Reposition at least every 2hours or as tolerated. Off-load heels with pillow. Nutritional optimization We will monitor follow with recommendations cont with above upon d/c wounds healing overall improving left hand wound almost resolved. 80% healed (2) Sepsis Assessment & Plan: IV abx as per ID trend labs improving wounds unlikely etiology likely respiratory imaging noted and okay abnormal lft's stable PICC on Abx in ICU for desaturation CXR with consolidation cont with frequent suctioning d/c planning g j via GI acute leukocytosis decompensation hypotensive on pressors pending c diff abx changed per ID daughter wants close attention to wounds and management to ensure healing Evidence of left lower lobe pneumonia, also previously demonstrated Gastrostomy in good position Mild diastasis of the rectus abdominis musculature again demonstrated Retrosacral decubitus changes, better depicted on prior exam which included the pelvis Small hiatal hernia with evidence of trace gastroesophageal reflux Discussed with GI. Recommend GJ family still pending decision transfuse prbc prn monitor h/h monitor bm LFTs improving trending down Findings: Previously demonstrated gastrostomy tube has been converted to a gastrojejunostomy. Gastrostomy balloon is in good position. The shaft of the jejunostomy portion coils in the upper gastric fundus, and the tip is in the proximal jejunum just beyond the ligament of Treitz. The distal esophagus is unremarkable. Contrast is seen within the colon. The visualized bowel demonstrates no significant distention. There is diastasis of the rectus abdominis tendon again demonstrated. The appendix is visualized, normal. The liver, gallbladder, bile ducts, pancreas, spleen, adrenals, right kidney are unremarkable. The left kidney demonstrates a large interpolar region cyst. No retroperitoneal or mesenteric mass or adenopathy. The included lung bases demonstrate groundglass opacities, right greater than left, and areas of scarring or atelectasis on the left. Previously demonstrated left lower lobe dense consolidation has improved The bones demonstrate a very slight superior endplate compression fracture deformity of the L3 vertebral body, also evident previously. Previously reported retrosacral decubitus changes are not included in the current imaging volume Impression: Interim conversion of gastrostomy to gastrojejunostomy, jejunostomy tube tip at the origin of the jejunum, just beyond the ligament of Treitz No acute abdominal abnormality Mild bilateral basilar pulmonary parenchymal groundglass opacities, right greater than left, nonspecific, could indicate atelectasis, edema, or inflammation. May also be in part due to motion artifact. There are also atelectatic changes or scarring on the left L3 vertebral body mild superior endplate compression fracture deformity, also demonstrated on prior January 2019 exam and therefore not acute. Incidental findings as noted, including rectus abdominis tendon diastasis, large left renal cyst (3) Feeding by G-tube Assessment & Plan: DAILY ESTIMATED NEEDS: Needs based on Pulmonary, wounds, bedbound/ 61kg adj 25-30 kcals/kg 3790-1312 total kcals 1.25-2 g protein/kg 76-122 g total protein 25-30 mL/kg 8846-4341 total fluid mLs NUTRITION DIAGNOSIS: * Increased kcal/prot needs R/T wound healing as evidenced by BL buttocks and sacral wound photos, refer to eval. * Swallowing difficulty R/T respiratory status as evidenced by pt on T-collar, s/p G-J conversion CURRENT TF:Glucerna 1.5 @ 50ml/hr x 24 hrs ENTERAL NUTRITION RECOMMENDATIONS: Glucerna 1.5 @ 50ml/hr x 24 hrs to provide 1200ml, 1800 kcal, 99g pro, 911ml free H2O - Maintain at current rate as tolerated to meet 100% est needs - HOB over 30 degrees - INCREASE water flush of 170ml q 6 hrs ADDITIONAL RECOMMENDATIONS: 1) RE-calibrate bedscale wt: fluctuating daily wts (108#-136# last 6 days) 2) Wound healing: Add Cristian 1pkt BID w/ continued good TF tolerance. 3) Increase water flushes, monitor for signs of water deficits 4) Monitor BGs closely, need for NISS -> now w/ improved BGs 5) Monitor for continued good TF tolerance 6) Monitor K : elev K on 03/25, s/p Kdur BID, now dc'ed. (4) Chronic vegetative state Assessment & Plan: incontinence of urine and stool. can soil dressings. nurses doing great job with monitoring and changing prn (5) Leukocytosis Walter Madera May 21, 2019 13:34
--- NOTE | 2019-05-21 14:00 | NUR ---
NURSE NOTES: SEEN PATIENT ASLEEP IN NO DISTRESS. FAMILY MEMBER SEEN AT THE BEDSIDE. WILL CONTINUE TO MONITOR.
--- NOTE | 2019-05-21 16:00 | NUR ---
NURSE NOTES: TURNED AND REPOSITIONED PATIENT. NO SIGNS OF DISTRESS. WILL CONTINUE TO MONITOR.
--- NOTE | 2019-05-21 17:16 | Pulmonology Progress Note ---
Assessment/Plan Assessment/Plan Impression: Fungemia [facility]+ history of Pneumonia Trach, G tube, Hypertension, Cardiac disease, Dementia, Previous CVA, Seizure disorder, Respiratory failure with hypoxia Anemia, Sacral ulcer renal cyst chronic pulmonary congestion Plan antifungals antimicrobials ID following for changes monitor for change; care reviewed recent cultures reviewed and ID noted monitor imaging for change Vent PRN but DNR as per family monitor labs for change maintain reflux aspiration and monitor feeds elevate head and monitor secretions monitor labs for change monitor vitals; and adjust meds; cards following; tachycardia resolved DNR. No CPR. ICU care reviewed meds noted and updated; neb therapy off load as able prognosis very poor nutrition/fees/ dietary as is; monitor residuals skin care management reviewed difficulty with placement all changes noted and discussed chronic management as able medications/laboratory data/nursing notes/ICU care reviewed in detail note reviewed and edited care discussed with RN and RT time spent x 38minutes Subjective ROS Limited/Unobtainable: Yes Allergies: Coded Allergies: CODEINE (Verified Allergy, Unknown, HIVES, 09/15/09) Subjective overnight events noted; poor LOC on isolation; remains off vent for now Fungemia; noted [facility] results discussed in detail ICU care issues discussed requires suctioning and has some congestion Objective Last 24 Hour Vital Signs Date Time Temp Pulse Resp B/P (MAP) Pulse Ox O2 Delivery O2 Flow Rate FiO2 05/21/19 17:00 94 22 144/63 (90) 99 05/21/19 16:00 T-piece 5.0 T-piece 5.0 T-piece 5.0 05/21/19 16:00 98.6 97 23 134/68 (90) 99 05/21/19 16:00 5.0 28 05/21/19 15:00 100 29 169/79 (109) 98 05/21/19 14:00 98.8 95 22 177/84 (115) 99 05/21/19 13:00 98 24 164/76 (105) 99 05/21/19 12:30 100 T-Piece 5.0 28 05/21/19 12:00 98.8 05/21/19 12:00 96 23 143/77 (99) 98 05/21/19 12:00 97 05/21/19 12:00 T-piece 5.0 T-piece 5.0 T-piece 5.0 05/21/19 12:00 5.0 28 05/21/19 11:00 98 23 120/56 (77) 98 05/21/19 10:00 98 23 136/68 (90) 97 05/21/19 09:00 98 20 155/71 (99) 99 05/21/19 09:00 98 20 155/71 (99) 99 05/21/19 08:00 5.0 28 05/21/19 08:00 98 05/21/19 08:00 T-piece 5.0 T-piece 5.0 T-piece 5.0 05/21/19 07:00 101 21 158/64 (95) 100 05/21/19 06:50 105 23 100 T-Piece 5.0 28 102 22 99 05/21/19 06:50 100 T-Piece 5.0 28 05/21/19 06:00 101 23 157/66 (96) 100 05/21/19 05:00 103 25 153/67 (95) 99 05/21/19 04:00 5.0 28 05/21/19 04:00 T-piece 5.0 T-piece 5.0 T-piece 5.0 05/21/19 04:00 107 05/21/19 04:00 99.3 104 23 160/75 (103) 05/21/19 03:25 103 20 100 T-Piece 5.0 28 104 19 99 05/21/19 03:00 106 24 143/62 (89) 99 05/21/19 02:00 104 25 150/64 (92) 98 05/21/19 01:00 104 23 151/69 (96) 100 05/21/19 00:23 100 T-Piece 5.0 28 05/21/19 00:00 T-piece 5.0 T-piece 5.0 T-piece 5.0 05/21/19 00:00 5.0 28 05/21/19 00:00 102 05/21/19 00:00 108 21 159/69 (99) 100 05/20/19 23:00 97.8 101 22 142/63 (89) 100 05/20/19 22:56 102 20 100 T-Piece 5.0 28 99 20 100 05/20/19 22:00 110 19 158/70 (99) 99 05/20/19 21:00 105 17 155/66 (95) 100 05/20/19 20:00 98 05/20/19 20:00 98.0 99 20 144/124 (131) 99 05/20/19 20:00 5.0 28 05/20/19 20:00 T-piece 5.0 T-piece 5.0 T-piece 5.0 05/20/19 19:06 100 T-Piece 5.0 28 05/20/19 19:05 97 21 100 T-Piece 5.0 28 96 19 100 05/20/19 19:00 97 19 146/63 (90) 99 05/20/19 18:00 98 19 148/76 (100) 100 Intake and Output 05/20/19 05/21/19 18:59 06:59 Intake Total 1780 ml 1580 ml Output Total 800 ml 700 ml Balance 980 ml 880 ml Free Water 300 ml 300 ml IV Total 310 ml 110 ml Tube Feeding 720 ml 720 ml Other 450 ml 450 ml Output Urine Total 800 ml 700 ml # Bowel Movements 1 Objective WDWN NAD on oxygen off vent reduced breath sounds bilaterally with scattered rhonchi [id number] without MRG NABS nontender no HSM no CC trace edema same contractures noted nonfocal nonverbal trach and gt reviewed and edited Current Medications Medications (Trade) Dose Ordered Sig/Maicol Route PRN Reason Start Time Stop Time Status Last Admin Dose Admin Acetaminophen (Tylenol) 650 mg Q4H PRN RECTAL T>100.5 / Mild Pain 05/07/19 09:45 06/06/19 09:44 05/07/19 10:13 Amikacin Sulfate (Amikin) 500 mg Q12HRT@1000,2200 INH 05/21/19 11:00 05/28/19 10:59 Atropine Sulfate (Atropine Opth Adriana) 1 drop Q6HR SL 05/11/19 00:00 06/10/19 08:59 05/21/19 12:54 Fluconazole/ Sodium Chloride 200 ml @ 100 mls/hr Q24H IV 05/18/19 12:00 05/25/19 11:59 05/21/19 12:54 Heparin Sodium (Porcine) (Heparin 5000 units/ml) 5,000 units EVERY 12 HOURS SUBQ 05/01/19 21:00 05/31/19 20:59 05/21/19 08:37 Hydralazine HCl (Apresoline) 10 mg Q4H PRN IV For High Blood Pressure 05/11/19 05:45 06/10/19 05:44 05/12/19 00:08 Levetiracetam (Keppra) 500 mg Q12HR GT 05/01/19 21:00 05/28/19 08:59 05/21/19 08:34 Pantoprazole (Protonix) 40 mg DAILY IVP 05/15/19 18:15 06/14/19 18:14 05/21/19 08:34 Amaury Chan MD May 21, 2019 17:16
--- NOTE | 2019-05-21 18:00 | NUR ---
NURSE NOTES: ORAL CARE DONE. TOLERATING TUBE FEEDING. GT TO LIS. WILL CONTINUE TO MONITOR.
--- NOTE | 2019-05-21 18:02 | NUR ---
CASE MANAGEMENT: REVIEW 05/19/2019 SI:SEPSIS. PNA. Sacral decubitus ulcer. T 99.1 HR 115 RR 17 B/P 165/72 SATS 98% ON TPIECE FIO2 28 LABS: NONE TODAY IS:PROTONIX IV QD KEPPRA GT Q12H AMIKIN INH Q12HRT FLUCONAZOLE IV Q24H ATROPINE SL Q6H ICU PLAN OF CARE: K and Mag and Phos supplement as needed antifungals antimicrobials continue Fluconazole X 7 days Addendum: 05/21/19 at 1816 by Ana Estrada 05/21/2019 SI:SEPSIS. PNA. Sacral decubitus ulcer. T 98.6 HR 93 RR 23 B/P 134/68 SATS 99% ON TPIECE FIO2 28 LABS: NONE TODAY IS:PROTONIX IV QD KEPPRA GT Q12H AMIKIN INH Q12HRT FLUCONAZOLE IV Q24H ATROPINE SL Q6H ICU PLAN OF CARE: K and Mag and Phos supplement as needed antifungals antimicrobials
--- NOTE | 2019-05-21 19:00 | NUR ---
NURSE NOTES: PATIENT KEPT CLEAN AND DRY. DGT SEEN AT THE BEDSIDE. WILL CONTINUE TO MONITOR.
--- NOTE | 2019-05-21 19:35 | NUR ---
HAND-OFF: Report given to [].
--- NOTE | 2019-05-21 19:35 | NUR ---
HAND-OFF: Report given to Destinee Medellin RN.
--- NOTE | 2019-05-21 19:36 | NUR ---
NURSE NOTES: Received pt and report from JEANNINE Gilmore. Patient's non-verbal, open eyes with voice. Sinus rhythm on the monitor. Shiley 6.0, receiving oxygen per T piece 28%, 5L. Pt's afebrile at this time 98.8F. VS stable. Right FA 24G intact, patent, TKO. With GJ tube. G tube connected to low intermittent suction. J tube receiving feeding of Vital AF 60ml/hr. Purewick in place, with clear yellow urine. Sacral skin alteration noted. P200 mattress [address] place. Wound care monitoring. Head of bed elevated. Bed locked and in low position. Call light within reach. Bed alarm on. Daughter at bedside. Will continue to monitor.
--- NOTE | 2019-05-21 22:00 | NUR ---
NURSE NOTES: Pt's resting in bed, accompanied by her daughter at bedside. Pt's turned as scheduled. Pt's in no acute distress. VS stable. Will continue to monitor.
[2019-05-22] VITALS (24 sets, daily range): BP systolic 123–154; BP diastolic 51–73
--- NOTE | 2019-05-22 | Progress Note ---
DATE: 05/21/2019 CARDIOLOGY PROGRESS NOTE SUBJECTIVE: The patient remains on T-tube with suctioning [id number]. OBJECTIVE: VITAL SIGNS: Blood pressure 134/68, pulse 97, respiratory rate 23. Monitored rhythm sinus with sinus tachycardia. LUNGS: Bilateral breath sounds. HEART: Regular rhythm and rate. Normal S1, S2. ABDOMEN: Soft. GJ tube intact. EXTREMITIES: Trace dependent edema. IMPRESSION: 1. Polymicrobial sepsis. 2. Pneumonia. 3. Respiratory failure. 4. Sinus tachycardia, acute and chronic diastolic congestive heart failure. 5. Hypertensive heart disease with rising blood pressure trend. PLAN: 1. [id number] in place. 2. May need additional antihypertensives, will follow. 3. Laboratory studies we ordered. 4. Updates the care, will follow as needed. Bg Hagen M.D. DR: SHIRA JOB#: [id number] CC:
--- NOTE | 2019-05-22 | NUR ---
NURSE NOTES: Pt's resting in bed, Pt's turned as scheduled. Pt's in no acute distress. VS stable. Will continue to monitor.
[2019-05-22] MEDS: Albuterol/Ipratropium 3ml neb HHN SCH ×7 (00:15→23:10)
--- NOTE | 2019-05-22 02:00 | NUR ---
NURSE NOTES: Pt's resting in bed, asleep with eyes closed. Pt's turned as scheduled. Pt's in no acute distress. VS stable. Will continue to monitor.
--- NOTE | 2019-05-22 04:00 | NUR ---
NURSE NOTES: Pt's resting in bed, in no acute distress. VS stable. Will continue to monitor.
[2019-05-22 05:38] LABS: BASOPHILS % (AUTO) 0.8 % (0.0-2.0); EOSINOPHILS % (AUTO) 4.1 % (0.0-3.0); HEMATOCRIT 25.8 % (37.0-47.0); HEMOGLOBIN 8.5 G/DL (12.0-16.0); MEAN CORPUSCULAR VOLUME 88 FL (80-99); MONOCYTES % (AUTO) 4.8 % (1.0-10.0); NEUTROPHILS % (AUTO) 57.3 % (45.0-75.0); PLATELET COUNT 367 K/UL (150-450); RED BLOOD COUNT 2.94 M/UL (4.20-5.40); RED CELL DISTRIBUTION WIDTH 13.8 % (11.6-14.8)
--- NOTE | 2019-05-22 06:00 | NUR ---
NURSE NOTES: Pt's resting in bed, asleep with eyes closed, in no acute distress. VS stable. Will continue to monitor.
[2019-05-22 06:28] LABS: ALANINE AMINOTRANSFERASE 60 U/L (12-78); ALBUMIN 2.2 G/DL (3.4-5.0); ALBUMIN/GLOBULIN RATIO 0.4 (1.0-2.7); ALKALINE PHOSPHATASE 223 U/L (46-116); ANION GAP 11 mmol/L (5-15); ASPARTATE AMINO TRANSFERASE 32 U/L (15-37); BILIRUBIN,TOTAL 0.2 MG/DL (0.2-1.0); BLOOD UREA NITROGEN 36 mg/dL (7-18); CALCIUM 9.4 MG/DL (8.5-10.1); CARBON DIOXIDE 28 MMOL/L (21-32); CHLORIDE 101 MMOL/L (98-107); CREATININE 0.9 MG/DL (0.55-1.30); PHOSPHORUS 4.1 MG/DL (2.5-4.9); POTASSIUM 4.9 MMOL/L (3.5-5.1); SODIUM 140 MMOL/L (136-145)
--- NOTE | 2019-05-22 07:10 | NUR ---
HAND-OFF: Report given to JEANNINE Hernandez.
--- NOTE | 2019-05-22 07:11 | NUR ---
NURSE NOTES: Report received from Luís Medellin RN. Pt is sleeping and able to respond to tactile stimuli with abnormal flexion. Non-verbal and not able to follow commands. Opens eyes spontaneously. 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 Pt has T-piece with cool aerosol 28%. O2 sat 100%. Moderate amount of white yellow thick secretion from T-piece and mouth. Pt coughs at times. GJ tube in place. Via J tube, pt is receiving Vital AF 1.2 at 60cc/hr. No residual noted. G tube is connected to low intermittent suction, draining yellow emesis. Pure-wick in place draining yellow urine via suction. IV to left FA G24 patent and asymptomatic. Bed in lowest position. Side rails up x3. Will resume plan of care.
--- NOTE | 2019-05-22 07:59 | NUR ---
NURSE NOTES: Afebrile. Oral care done. RT suctioned pt at bedside. Turned and repositioned pt. Dr Beltrán and Dr Vaughan at bedside, talking about patient. Updated them with pt's current condition. No new orders at this time.
[2019-05-22] MEDS: Pantoprazole Inj IVP SCH (08:12)
[2019-05-22] MEDS: levETIRAcetam 500mg/5ml Liquid GT SCH ×2 (08:12→20:09)
[2019-05-22] MEDS: Heparin 5000 units/ml inj SUBQ SCH ×2 (08:13→20:10)
[2019-05-22] MEDS: Amikacin for Inhalation 2ML INH SCH ×2 (10:08→22:07)
--- NOTE | 2019-05-22 10:23 | Infectious Diseases Prog Note ---
"Assessment/Plan Assessment/Plan antibiotics : inhaled amikacin 2..20- fluconazole A 1. delano parapsilosis fungemia 2. klebsiella sepsis s/p rx s/p catheter removal 3. respiratory failure 4. hypertension 5. CVA 6. dementia 7. rectal VRE colonization 8. leucocytosis resolved 9. pseudomonas | providencia pneumonia P 1. continue inhaled amikacin 5 more days 2. continue fluconazole 6 more days 3. will follow up cultures Subjective ROS Limited/Unobtainable: Yes Allergies: Coded Allergies: CODEINE (Verified Allergy, Unknown, HIVES, 09/15/09) Objective Vital Signs Last 24 Hour Vital Signs Date Time Temp Pulse Resp B/P (MAP) Pulse Ox O2 Delivery O2 Flow Rate FiO2 05/22/19 10:18 98 25 100 T-Piece 5.0 28 100 25 100 05/22/19 10:00 100 26 127/58 (81) 98 05/22/19 09:00 108 21 147/66 (93) 98 05/22/19 08:00 5.0 28 05/22/19 08:00 T-piece 5.0 T-piece 5.0 T-piece 5.0 05/22/19 08:00 98.8 103 28 124/71 (88) 97 05/22/19 07:58 103 05/22/19 07:49 106 20 100 T-Piece 5.0 28 103 20 99 05/22/19 07:39 99 T-Piece 5.0 28 05/22/19 07:00 99 26 134/61 (85) 99 05/22/19 06:00 107 23 151/70 (97) 99 05/22/19 05:00 98.7 98 25 133/61 (85) 100 05/22/19 04:00 100 24 131/63 (85) 100 05/22/19 04:00 5.0 28 05/22/19 04:00 98 05/22/19 04:00 T-piece 5.0 T-piece 5.0 T-piece 5.0 05/22/19 03:11 102 23 100 T-Piece 5.0 28 100 25 99 05/22/19 03:00 100 24 151/73 (99) 100 05/22/19 02:00 96 24 154/67 (96) 98 05/22/19 01:10 100 T-Piece 5.0 28 05/22/19 01:00 98 25 140/61 (87) 97 05/22/19 00:16 102 23 100 T-Piece 5.0 28 101 24 99 05/22/19 00:00 101 25 141/62 (88) 97 05/22/19 00:00 5.0 28 05/22/19 00:00 100 05/22/19 00:00 T-piece 5.0 T-piece 5.0 T-piece 5.0 05/21/19 23:00 99 24 124/58 (80) 98 05/21/19 22:09 99 25 100 T-Piece 5.0 28 99 24 100 05/21/19 22:00 100 24 132/62 (85) 99 05/21/19 21:00 97 25 160/71 (100) 100 05/21/19 20:00 93 05/21/19 20:00 T-piece 5.0 T-piece 5.0 T-piece 5.0 05/21/19 20:00 5.0 28 05/21/19 20:00 98.6 93 23 161/80 (107) 100 05/21/19 19:10 100 T-Piece 5.0 28 05/21/19 19:00 90 24 143/67 (92) 100 05/21/19 18:00 95 23 153/68 (96) 98 05/21/19 17:00 94 22 144/63 (90) 99 05/21/19 16:00 T-piece 5.0 T-piece 5.0 T-piece 5.0 05/21/19 16:00 98.6 97 23 134/68 (90) 99 05/21/19 16:00 5.0 28 05/21/19 16:00 93 05/21/19 15:00 100 29 169/79 (109) 98 05/21/19 14:00 98.8 95 22 177/84 (115) 99 05/21/19 13:00 98 24 164/76 (105) 99 05/21/19 12:30 100 T-Piece 5.0 28 05/21/19 12:00 98.8 05/21/19 12:00 96 23 143/77 (99) 98 05/21/19 12:00 97 05/21/19 12:00 T-piece 5.0 T-piece 5.0 T-piece 5.0 05/21/19 12:00 5.0 28 05/21/19 11:00 98 23 120/56 (77) 98 Height (Feet): 5 Height (Inches): 3.00 Weight (Pounds): 130 HEENT: status post trach Respiratory/Chest: crackles/rales, rhonchi - bilaterally Cardiovascular: normal rate, regular rhythm, no gallop/murmur Abdomen: soft, non tender, other - GT Extremities: no edema Laboratory Tests Test 05/22/19 04:30 White Blood Count 9.0 K/UL (4.8-10.8) Red Blood Count 2.94 M/UL (4.20-5.40) L Hemoglobin 8.5 G/DL (12.0-16.0) L Hematocrit 25.8 % (37.0-47.0) L Mean Corpuscular Volume 88 FL (80-99) Mean Corpuscular Hemoglobin 28.8 PG (27.0-31.0) Mean Corpuscular Hemoglobin Concent 32.8 G/DL (32.0-36.0) Red Cell Distribution Width 13.8 % (11.6-14.8) Platelet Count 367 K/UL (150-450) Mean Platelet Volume 5.1 FL (6.5-10.1) L Neutrophils (%) (Auto) 57.3 % (45.0-75.0) Lymphocytes (%) (Auto) 33.0 % (20.0-45.0) Monocytes (%) (Auto) 4.8 % (1.0-10.0) Eosinophils (%) (Auto) 4.1 % (0.0-3.0) H Basophils (%) (Auto) 0.8 % (0.0-2.0) Sodium Level 140 MMOL/L (136-145) Potassium Level 4.9 MMOL/L (3.5-5.1) Chloride Level 101 MMOL/L (98-107) Carbon Dioxide Level 28 MMOL/L (21-32) Anion Gap 11 mmol/L (5-15) Blood Urea Nitrogen 36 mg/dL (7-18) H Creatinine 0.9 MG/DL (0.55-1.30) Estimat Glomerular Filtration Rate > 60 mL/min (>60) Glucose Level 100 MG/DL (74-106) Calcium Level 9.4 MG/DL (8.5-10.1) Phosphorus Level 4.1 MG/DL (2.5-4.9) Magnesium Level 1.2 MG/DL (1.8-2.4) L Total Bilirubin 0.2 MG/DL (0.2-1.0) Aspartate Amino Transf (AST/SGOT) 32 U/L (15-37) Alanine Aminotransferase (ALT/SGPT) 60 U/L (12-78) Alkaline Phosphatase 223 U/L (46-116) H C-Reactive Protein, Quantitative 4.4 mg/dL (0.00-0.90) H Pro-B-Type Natriuretic Peptide 791 pg/mL (0-125) H Total Protein 8.2 G/DL (6.4-8.2) Albumin 2.2 G/DL (3.4-5.0) L Globulin 6.0 g/dL Albumin/Globulin Ratio 0.4 (1.0-2.7) L Current Medications Medications (Trade) Dose Ordered Sig/Maicol Route PRN Reason Start Time Stop Time Status Last Admin Dose Admin Acetaminophen (Tylenol) 650 mg Q4H PRN RECTAL T>100.5 / Mild Pain 05/07/19 09:45 06/06/19 09:44 05/07/19 10:13 Albuterol/ Ipratropium (Albuterol/ Ipratropium) 3 ml Q4HRT HHN 05/21/19 23:00 05/26/19 22:59 05/22/19 10:18 Amikacin Sulfate (Amikin) 500 mg Q12HRT@1000,2200 INH 05/21/19 11:00 05/28/19 10:59 05/22/19 10:08 Atropine Sulfate (Atropine Opth Adriana) 1 drop Q6HR SL 05/11/19 00:00 06/10/19 08:59 05/22/19 07:26 Fluconazole/ Sodium Chloride 200 ml @ 100 mls/hr Q24H IV 05/18/19 12:00 05/25/19 11:59 05/21/19 12:54 Heparin Sodium (Porcine) (Heparin 5000 units/ml) 5,000 units EVERY 12 HOURS SUBQ 05/01/19 21:00 05/31/19 20:59 05/22/19 08:13 Hydralazine HCl (Apresoline) 10 mg Q4H PRN IV For High Blood Pressure 05/11/19 05:45 06/10/19 05:44 05/12/19 00:08 Levetiracetam (Keppra) 500 mg Q12HR GT 05/01/19 21:00 05/28/19 08:59 05/22/19 08:12 Magnesium Sulfate 100 ml @ 100 mls/hr Q1H IVPB 05/22/19 08:30 05/22/19 14:29 05/22/19 09:24 Pantoprazole (Protonix) 40 mg DAILY IVP 05/15/19 18:15 06/14/19 18:14 05/22/19 08:12 Geovany Yang MD May 22, 2019 10:23"
--- NOTE | 2019-05-22 10:30 | NUR ---
NURSE NOTES: Moderate amount of thick secretion noted from T-piece. Suctioned as needed. Will continue to monitor. Addendum: 05/22/19 at 1101 by AMOS KHOURY RN RN NURSE NOTES: Moderate amount of thick secretion noted from T-piece. Suctioned as needed. Will continue to monitor. Dr Yang here to see the patient. Updated her with pt's current condition. No new orders for now.
--- NOTE | 2019-05-22 12:10 | NUR ---
NURSE NOTES: Pt is afebrile. Turned and repositioned pt. Oral care done. No signs and symptoms of discomfort and pain. Will continue to monitor.
--- NOTE | 2019-05-22 14:30 | NUR ---
NURSE NOTES: Suctioned via T-piece as needed. Turned and repositioned pt. VSS. No acute distress noted. Will continue to monitor.
--- NOTE | 2019-05-22 14:44 | Nephrology Progress Note ---
Assessment/Plan Problem List: (1) Acute renal failure (ARF) Assessment: Cr stable (2) Chronic respiratory failure (3) Anemia (4) Sepsis Assessment Acute renal failure Respiratory failure - Trach Low Mag- Low k , Low Na Anemia UTI / Sepsis Proteinuria / HypoAlbuminemia high Trigs Sz decubs bed bound DNR Plan remains on 2 antibiotics Transfused 05/09 has JT bolus Albumin as needed K and Mag and Phos supplement as needed Hydrate as needed Urine studies avoid Nephrotoxics mag K Phos supplements as needed monitor renal parameters Subjective ROS Limited/Unobtainable: Yes Objective Objective Last 24 Hour Vital Signs Date Time Temp Pulse Resp B/P (MAP) Pulse Ox O2 Delivery O2 Flow Rate FiO2 05/22/19 14:36 100 21 100 T-Piece 5.0 28 98 24 100 05/22/19 14:00 97 25 146/67 (93) 99 05/22/19 14:00 97 26 132/60 (84) 98 05/22/19 13:00 97 25 146/67 (93) 99 05/22/19 12:36 100 T-Piece 5.0 28 05/22/19 12:00 T-piece 5.0 T-piece 5.0 T-piece 5.0 05/22/19 12:00 98.8 98 24 142/70 (94) 98 05/22/19 12:00 5.0 28 05/22/19 12:00 98 05/22/19 11:00 98 24 127/55 (79) 97 05/22/19 10:28 103 21 100 T-Piece 5.0 28 98 25 100 05/22/19 10:18 98 25 100 T-Piece 5.0 28 100 25 100 05/22/19 10:00 100 26 127/58 (81) 98 05/22/19 09:00 108 21 147/66 (93) 98 05/22/19 08:00 5.0 28 05/22/19 08:00 T-piece 5.0 T-piece 5.0 T-piece 5.0 05/22/19 08:00 98.8 103 28 124/71 (88) 97 05/22/19 07:58 103 05/22/19 07:49 106 20 100 T-Piece 5.0 28 103 20 99 05/22/19 07:39 99 T-Piece 5.0 28 05/22/19 07:00 99 26 134/61 (85) 99 05/22/19 06:00 107 23 151/70 (97) 99 05/22/19 05:00 98.7 98 25 133/61 (85) 100 05/22/19 04:00 100 24 131/63 (85) 100 05/22/19 04:00 5.0 28 05/22/19 04:00 98 05/22/19 04:00 T-piece 5.0 T-piece 5.0 T-piece 5.0 05/22/19 03:11 102 23 100 T-Piece 5.0 28 100 25 99 05/22/19 03:00 100 24 151/73 (99) 100 05/22/19 02:00 96 24 154/67 (96) 98 05/22/19 01:10 100 T-Piece 5.0 28 05/22/19 01:00 98 25 140/61 (87) 97 05/22/19 00:16 102 23 100 T-Piece 5.0 28 101 24 99 05/22/19 00:00 101 25 141/62 (88) 97 05/22/19 00:00 5.0 28 05/22/19 00:00 100 05/22/19 00:00 T-piece 5.0 T-piece 5.0 T-piece 5.0 05/21/19 23:00 99 24 124/58 (80) 98 05/21/19 22:09 99 25 100 T-Piece 5.0 28 99 24 100 05/21/19 22:00 100 24 132/62 (85) 99 05/21/19 21:00 97 25 160/71 (100) 100 05/21/19 20:00 93 05/21/19 20:00 T-piece 5.0 T-piece 5.0 T-piece 5.0 05/21/19 20:00 5.0 28 05/21/19 20:00 98.6 93 23 161/80 (107) 100 05/21/19 19:10 100 T-Piece 5.0 28 05/21/19 19:00 90 24 143/67 (92) 100 05/21/19 18:00 95 23 153/68 (96) 98 05/21/19 17:00 94 22 144/63 (90) 99 05/21/19 16:00 T-piece 5.0 T-piece 5.0 T-piece 5.0 05/21/19 16:00 98.6 97 23 134/68 (90) 99 05/21/19 16:00 5.0 28 05/21/19 16:00 93 05/21/19 15:00 100 29 169/79 (109) 98 Intake and Output 05/21/19 05/22/19 19:00 07:00 Intake Total 1670 ml 1220 ml Output Total 1780 ml 620 ml Balance -110 ml 600 ml Free Water 300 ml 200 ml IV Total 200 ml Tube Feeding 720 ml 720 ml Other 450 ml 300 ml Output Urine Total 700 ml 300 ml Gastric Drainage Total 1080 ml 320 ml # Bowel Movements 1 Current Medications Medications (Trade) Dose Ordered Sig/Maicol Route PRN Reason Start Time Stop Time Status Last Admin Dose Admin Acetaminophen (Tylenol) 650 mg Q4H PRN RECTAL T>100.5 / Mild Pain 05/07/19 09:45 06/06/19 09:44 05/07/19 10:13 Albuterol/ Ipratropium (Albuterol/ Ipratropium) 3 ml Q4HRT HHN 05/21/19 23:00 05/26/19 22:59 05/22/19 14:26 Amikacin Sulfate (Amikin) 500 mg Q12HRT@1000,2200 INH 05/21/19 11:00 05/28/19 10:59 05/22/19 10:08 Atropine Sulfate (Atropine Opth Adriana) 1 drop Q6HR SL 05/11/19 00:00 06/10/19 08:59 05/22/19 11:31 Fluconazole/ Sodium Chloride 200 ml @ 100 mls/hr Q24H IV 05/18/19 12:00 05/25/19 11:59 05/22/19 11:31 Heparin Sodium (Porcine) (Heparin 5000 units/ml) 5,000 units EVERY 12 HOURS SUBQ 05/01/19 21:00 05/31/19 20:59 05/22/19 08:13 Hydralazine HCl (Apresoline) 10 mg Q4H PRN IV For High Blood Pressure 05/11/19 05:45 06/10/19 05:44 05/12/19 00:08 Levetiracetam (Keppra) 500 mg Q12HR GT 05/01/19 21:00 05/28/19 08:59 05/22/19 08:12 Pantoprazole (Protonix) 40 mg DAILY IVP 05/15/19 18:15 06/14/19 18:14 05/22/19 08:12 Laboratory Tests 05/22/19 04:30: White Blood Count 9.0, Red Blood Count 2.94L, Hemoglobin 8.5L, Hematocrit 25.8L , Mean Corpuscular Volume 88, Mean Corpuscular Hemoglobin 28.8, Mean Corpuscular Hemoglobin Concent 32.8, Red Cell Distribution Width 13.8, Platelet Count 367, Mean Platelet Volume 5.1L, Neutrophils (%) (Auto) 57.3, Lymphocytes ( %) (Auto) 33.0, Monocytes (%) (Auto) 4.8, Eosinophils (%) (Auto) 4.1H, Basophils (%) (Auto) 0.8, Sodium Level 140, Potassium Level 4.9, Chloride Level 101, Carbon Dioxide Level 28, Anion Gap 11, Blood Urea Nitrogen 36H, Creatinine 0.9, Estimat Glomerular Filtration Rate > 60, Glucose Level 100, Calcium Level 9.4, Phosphorus Level 4.1, Magnesium Level 1.2L, Total Bilirubin 0.2, Aspartate Amino Transf (AST/SGOT) 32, Alanine Aminotransferase (ALT/SGPT) 60, Alkaline Phosphatase 223H, C-Reactive Protein, Quantitative 4.4H, Pro-B-Type Natriuretic Peptide 791H, Total Protein 8.2, Albumin 2.2L, Globulin 6.0, Albumin/Globulin Ratio 0.4L Height (Feet): 5 Height (Inches): 3.00 Weight (Pounds): 130 General Appearance: no apparent distress EENT: other - trach to O2 Cardiovascular: tachycardia Respiratory/Chest: decreased breath sounds Abdomen: distended Objective no change Eric Cortez MD May 22, 2019 14:44
--- NOTE | 2019-05-22 17:16 | Pulmonology Progress Note ---
Assessment/Plan Assessment/Plan Impression: Fungemia [facility]+ history of Pneumonia Trach, G tube, Hypertension, Cardiac disease, Dementia, Previous CVA, Seizure disorder, Respiratory failure with hypoxia Anemia, Sacral ulcer renal cyst chronic pulmonary congestion Plan antifungals antimicrobials ID following for changes overall pulmonary status slightly improved monitor imaging for change and monitor secretions Vent PRN but DNR as per family monitor labs for change and recommend further maintain reflux aspiration and monitor feeds elevate head and monitor secretions monitor labs for change monitor vitals; and adjust meds; cards following; tachycardia resolved DNR. No CPR. ICU care reviewed meds noted and updated; neb therapy off load as able prognosis very poor nutrition/fees/ dietary as is; monitor residuals skin care management reviewed difficulty with placement all changes noted and discussed chronic management as able medications/laboratory data/nursing notes/ICU care reviewed in detail note reviewed and edited care discussed with RN and RT time spent x 38minutes Subjective ROS Limited/Unobtainable: Yes Allergies: Coded Allergies: CODEINE (Verified Allergy, Unknown, HIVES, 09/15/09) Subjective overnight events noted; poor LOC reduced congestion on isolation; remains off vent for now Fungemia; noted [facility] off vent ICU care issues discussed requires suctioning and has some congestion Objective Last 24 Hour Vital Signs Date Time Temp Pulse Resp B/P (MAP) Pulse Ox O2 Delivery O2 Flow Rate FiO2 05/22/19 17:00 102 24 150/70 (96) 100 05/22/19 16:11 101 05/22/19 16:00 T-piece 5.0 T-piece 5.0 T-piece 5.0 05/22/19 16:00 5.0 28 05/22/19 16:00 98.2 96 24 130/51 (77) 98 05/22/19 15:00 98 24 146/68 (94) 100 05/22/19 14:36 100 21 100 T-Piece 5.0 28 98 24 100 05/22/19 14:00 97 25 146/67 (93) 99 05/22/19 14:00 97 26 132/60 (84) 98 05/22/19 13:00 97 25 146/67 (93) 99 05/22/19 12:36 100 T-Piece 5.0 28 05/22/19 12:00 T-piece 5.0 T-piece 5.0 T-piece 5.0 05/22/19 12:00 98.8 98 24 142/70 (94) 98 05/22/19 12:00 5.0 28 05/22/19 12:00 98 05/22/19 11:00 98 24 127/55 (79) 97 05/22/19 10:28 103 21 100 T-Piece 5.0 28 98 25 100 05/22/19 10:18 98 25 100 T-Piece 5.0 28 100 25 100 05/22/19 10:00 100 26 127/58 (81) 98 05/22/19 09:00 108 21 147/66 (93) 98 05/22/19 08:00 5.0 28 05/22/19 08:00 T-piece 5.0 T-piece 5.0 T-piece 5.0 05/22/19 08:00 98.8 103 28 124/71 (88) 97 05/22/19 07:58 103 05/22/19 07:49 106 20 100 T-Piece 5.0 28 103 20 99 05/22/19 07:39 99 T-Piece 5.0 28 05/22/19 07:00 99 26 134/61 (85) 99 05/22/19 06:00 107 23 151/70 (97) 99 05/22/19 05:00 98.7 98 25 133/61 (85) 100 05/22/19 04:00 100 24 131/63 (85) 100 05/22/19 04:00 5.0 28 05/22/19 04:00 98 05/22/19 04:00 T-piece 5.0 T-piece 5.0 T-piece 5.0 05/22/19 03:11 102 23 100 T-Piece 5.0 28 100 25 99 05/22/19 03:00 100 24 151/73 (99) 100 05/22/19 02:00 96 24 154/67 (96) 98 05/22/19 01:10 100 T-Piece 5.0 28 05/22/19 01:00 98 25 140/61 (87) 97 05/22/19 00:16 102 23 100 T-Piece 5.0 28 101 24 99 05/22/19 00:00 101 25 141/62 (88) 97 05/22/19 00:00 5.0 28 05/22/19 00:00 100 05/22/19 00:00 T-piece 5.0 T-piece 5.0 T-piece 5.0 05/21/19 23:00 99 24 124/58 (80) 98 05/21/19 22:09 99 25 100 T-Piece 5.0 28 99 24 100 05/21/19 22:00 100 24 132/62 (85) 99 05/21/19 21:00 97 25 160/71 (100) 100 05/21/19 20:00 93 05/21/19 20:00 T-piece 5.0 T-piece 5.0 T-piece 5.0 05/21/19 20:00 5.0 28 05/21/19 20:00 98.6 93 23 161/80 (107) 100 05/21/19 19:10 100 T-Piece 5.0 28 05/21/19 19:00 90 24 143/67 (92) 100 05/21/19 18:00 95 23 153/68 (96) 98 Intake and Output 05/21/19 05/22/19 19:00 07:00 Intake Total 1670 ml 1220 ml Output Total 1780 ml 620 ml Balance -110 ml 600 ml Free Water 300 ml 200 ml IV Total 200 ml Tube Feeding 720 ml 720 ml Other 450 ml 300 ml Output Urine Total 700 ml 300 ml Gastric Drainage Total 1080 ml 320 ml # Bowel Movements 1 Objective WDWN NAD on oxygen off vent reduced breath sounds bilaterally with reduced rhonchi [id number] without MRG NABS nontender no HSM no CC trace edema same contractures noted nonfocal nonverbal trach and gt reviewed and edited Laboratory Tests 05/22/19 04:30: White Blood Count 9.0, Red Blood Count 2.94L, Hemoglobin 8.5L, Hematocrit 25.8L , Mean Corpuscular Volume 88, Mean Corpuscular Hemoglobin 28.8, Mean Corpuscular Hemoglobin Concent 32.8, Red Cell Distribution Width 13.8, Platelet Count 367, Mean Platelet Volume 5.1L, Neutrophils (%) (Auto) 57.3, Lymphocytes ( %) (Auto) 33.0, Monocytes (%) (Auto) 4.8, Eosinophils (%) (Auto) 4.1H, Basophils (%) (Auto) 0.8, Sodium Level 140, Potassium Level 4.9, Chloride Level 101, Carbon Dioxide Level 28, Anion Gap 11, Blood Urea Nitrogen 36H, Creatinine 0.9, Estimat Glomerular Filtration Rate > 60, Glucose Level 100, Calcium Level 9.4, Phosphorus Level 4.1, Magnesium Level 1.2L, Total Bilirubin 0.2, Aspartate Amino Transf (AST/SGOT) 32, Alanine Aminotransferase (ALT/SGPT) 60, Alkaline Phosphatase 223H, C-Reactive Protein, Quantitative 4.4H, Pro-B-Type Natriuretic Peptide 791H, Total Protein 8.2, Albumin 2.2L, Globulin 6.0, Albumin/Globulin Ratio 0.4L Current Medications Medications (Trade) Dose Ordered Sig/Maicol Route PRN Reason Start Time Stop Time Status Last Admin Dose Admin Acetaminophen (Tylenol) 650 mg Q4H PRN RECTAL T>100.5 / Mild Pain 05/07/19 09:45 06/06/19 09:44 05/07/19 10:13 Albuterol/ Ipratropium (Albuterol/ Ipratropium) 3 ml Q4HRT HHN 05/21/19 23:00 05/26/19 22:59 05/22/19 14:26 Amikacin Sulfate (Amikin) 500 mg Q12HRT@1000,2200 INH 05/21/19 11:00 05/28/19 10:59 05/22/19 10:08 Atropine Sulfate (Atropine Opth Adriana) 1 drop Q6HR SL 05/11/19 00:00 06/10/19 08:59 05/22/19 11:31 Fluconazole/ Sodium Chloride 200 ml @ 100 mls/hr Q24H IV 05/18/19 12:00 05/25/19 11:59 05/22/19 11:31 Heparin Sodium (Porcine) (Heparin 5000 units/ml) 5,000 units EVERY 12 HOURS SUBQ 05/01/19 21:00 05/31/19 20:59 05/22/19 08:13 Hydralazine HCl (Apresoline) 10 mg Q4H PRN IV For High Blood Pressure 05/11/19 05:45 06/10/19 05:44 05/12/19 00:08 Levetiracetam (Keppra) 500 mg Q12HR GT 05/01/19 21:00 05/28/19 08:59 05/22/19 08:12 Pantoprazole (Protonix) 40 mg DAILY IVP 05/15/19 18:15 06/14/19 18:14 05/22/19 08:12 Amaury Chan MD May 22, 2019 17:16
--- NOTE | 2019-05-22 17:17 | NUR ---
NURSE NOTES: Cleaned and repositioned pt. Pure wick replaced with a new one. No acute distress noted. Pt is tolerating tube feeding. No output noted from G-tube. Addendum: 05/22/19 at 1930 by AMOS KHOURY RN RN NURSE NOTES: Cleaned and repositioned pt. Pure wick replaced with a new one. No acute distress noted. Pt is tolerating tube feeding. No output noted from G-tube other than the amount flushed.
--- NOTE | 2019-05-22 17:40 | General Progress Note ---
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 - Anemia with OB (-) stools - Resp failure, s/p Trach - OBS, vegetative obtunded unresponsive state, bedbound with contracted extremities - h/o minor GJ tube site irritation - poor Prognosis Recommendations - No plans for immune suppression at this time (risk benefit ratio in favor of holding off Rx) - abx per ID - PPI daily - Cristian BID - antibiotic ointment to GJT site PRN - aspiration precautions - elevate HOB - Vital AF 1.2 - transfuse to keep Hg > 7 - J tube feeds - G tube ---> LIS - check ESR --> elevated - further evaluation for autoimmune hepatitis (anti DNA) - DS DNA neg, SS DNA pending Subjective Allergies: Coded Allergies: CODEINE (Verified Allergy, Unknown, HIVES, 09/15/09) Subjective above noted d/w RN and PMD tolerating TF Objective Last 24 Hour Vital Signs Date Time Temp Pulse Resp B/P (MAP) Pulse Ox O2 Delivery O2 Flow Rate FiO2 05/22/19 17:00 102 24 150/70 (96) 100 05/22/19 16:11 101 05/22/19 16:00 T-piece 5.0 T-piece 5.0 T-piece 5.0 05/22/19 16:00 5.0 28 05/22/19 16:00 98.2 96 24 130/51 (77) 98 05/22/19 15:00 98 24 146/68 (94) 100 05/22/19 14:36 100 21 100 T-Piece 5.0 28 98 24 100 05/22/19 14:00 97 25 146/67 (93) 99 05/22/19 14:00 97 26 132/60 (84) 98 05/22/19 13:00 97 25 146/67 (93) 99 05/22/19 12:36 100 T-Piece 5.0 28 05/22/19 12:00 T-piece 5.0 T-piece 5.0 T-piece 5.0 05/22/19 12:00 98.8 98 24 142/70 (94) 98 05/22/19 12:00 5.0 28 05/22/19 12:00 98 05/22/19 11:00 98 24 127/55 (79) 97 05/22/19 10:28 103 21 100 T-Piece 5.0 28 98 25 100 05/22/19 10:18 98 25 100 T-Piece 5.0 28 100 25 100 05/22/19 10:00 100 26 127/58 (81) 98 05/22/19 09:00 108 21 147/66 (93) 98 05/22/19 08:00 5.0 28 05/22/19 08:00 T-piece 5.0 T-piece 5.0 T-piece 5.0 05/22/19 08:00 98.8 103 28 124/71 (88) 97 05/22/19 07:58 103 05/22/19 07:49 106 20 100 T-Piece 5.0 28 103 20 99 05/22/19 07:39 99 T-Piece 5.0 28 05/22/19 07:00 99 26 134/61 (85) 99 05/22/19 06:00 107 23 151/70 (97) 99 05/22/19 05:00 98.7 98 25 133/61 (85) 100 05/22/19 04:00 100 24 131/63 (85) 100 05/22/19 04:00 5.0 28 05/22/19 04:00 98 05/22/19 04:00 T-piece 5.0 T-piece 5.0 T-piece 5.0 05/22/19 03:11 102 23 100 T-Piece 5.0 28 100 25 99 05/22/19 03:00 100 24 151/73 (99) 100 05/22/19 02:00 96 24 154/67 (96) 98 05/22/19 01:10 100 T-Piece 5.0 28 05/22/19 01:00 98 25 140/61 (87) 97 05/22/19 00:16 102 23 100 T-Piece 5.0 28 101 24 99 05/22/19 00:00 101 25 141/62 (88) 97 05/22/19 00:00 5.0 28 05/22/19 00:00 100 05/22/19 00:00 T-piece 5.0 T-piece 5.0 T-piece 5.0 05/21/19 23:00 99 24 124/58 (80) 98 05/21/19 22:09 99 25 100 T-Piece 5.0 28 99 24 100 05/21/19 22:00 100 24 132/62 (85) 99 05/21/19 21:00 97 25 160/71 (100) 100 05/21/19 20:00 93 05/21/19 20:00 T-piece 5.0 T-piece 5.0 T-piece 5.0 05/21/19 20:00 5.0 28 05/21/19 20:00 98.6 93 23 161/80 (107) 100 05/21/19 19:10 100 T-Piece 5.0 28 05/21/19 19:00 90 24 143/67 (92) 100 05/21/19 18:00 95 23 153/68 (96) 98 Intake and Output 05/21/19 05/22/19 19:00 07:00 Intake Total 1670 ml 1220 ml Output Total 1780 ml 620 ml Balance -110 ml 600 ml Free Water 300 ml 200 ml IV Total 200 ml Tube Feeding 720 ml 720 ml Other 450 ml 300 ml Output Urine Total 700 ml 300 ml Gastric Drainage Total 1080 ml 320 ml # Bowel Movements 1 Laboratory Tests 05/22/19 04:30: White Blood Count 9.0, Red Blood Count 2.94L, Hemoglobin 8.5L, Hematocrit 25.8L , Mean Corpuscular Volume 88, Mean Corpuscular Hemoglobin 28.8, Mean Corpuscular Hemoglobin Concent 32.8, Red Cell Distribution Width 13.8, Platelet Count 367, Mean Platelet Volume 5.1L, Neutrophils (%) (Auto) 57.3, Lymphocytes ( %) (Auto) 33.0, Monocytes (%) (Auto) 4.8, Eosinophils (%) (Auto) 4.1H, Basophils (%) (Auto) 0.8, Sodium Level 140, Potassium Level 4.9, Chloride Level 101, Carbon Dioxide Level 28, Anion Gap 11, Blood Urea Nitrogen 36H, Creatinine 0.9, Estimat Glomerular Filtration Rate > 60, Glucose Level 100, Calcium Level 9.4, Phosphorus Level 4.1, Magnesium Level 1.2L, Total Bilirubin 0.2, Aspartate Amino Transf (AST/SGOT) 32, Alanine Aminotransferase (ALT/SGPT) 60, Alkaline Phosphatase 223H, C-Reactive Protein, Quantitative 4.4H, Pro-B-Type Natriuretic Peptide 791H, Total Protein 8.2, Albumin 2.2L, Globulin 6.0, Albumin/Globulin Ratio 0.4L Height (Feet): 5 Height (Inches): 3.00 Weight (Pounds): 130 Objective Debilitated AA woman non-verbal, obtunded NCAT (+) trach coarse BS RR obese abd, (+) GJT, (+) (L) trunk edema no edema (+) contractured extremities Celio Vaughan MD May 22, 2019 17:40
--- NOTE | 2019-05-22 18:19 | General Progress Note ---
Assessment/Plan Problem List: (1) Seizure ICD Codes: R56.9 - Unspecified convulsions SNOMED: 22203884 (2) Anemia ICD Codes: D64.9 - Anemia, unspecified SNOMED: 555503610 Qualifiers: Qualified Codes: D64.9 - Anemia, unspecified (3) Sepsis ICD Codes: A41.9 - Sepsis, unspecified organism SNOMED: 75530151, 360062145 Qualifiers: Qualified Codes: A41.9 - Sepsis, unspecified organism (4) Respiratory failure with hypoxia ICD Codes: J96.91 - Respiratory failure, unspecified with hypoxia SNOMED: 80841477677427483 Qualifiers: Qualified Codes: J96.21 - Acute and chronic respiratory failure with hypoxia (5) HCAP (healthcare-associated pneumonia) ICD Codes: J18.9 - Pneumonia, unspecified organism SNOMED: 643659093, 017595702 (6) Sacral decubitus ulcer ICD Codes: L89.159 - Pressure ulcer of sacral region, unspecified stage SNOMED: 922707674 (7) HTN (hypertension) ICD Codes: I10 - Essential (primary) hypertension SNOMED: 78669509 (8) Chronic vegetative state ICD Codes: R40.3 - Persistent vegetative state SNOMED: 74921638 (9) Chronic respiratory failure ICD Codes: J96.10 - Chronic respiratory failure, unspecified whether with hypoxia or hypercapnia SNOMED: 16488344 (10) Limited mobility ICD Codes: Z74.09 - Other reduced mobility SNOMED: 4416310 Status: stable, progressing Assessment/Plan: iv abx per id monitor for bleeding vent as needed resp rx suctioning replace lytes as needed j tube feeds g port to gravity skin care sz rx bowel regime monitor lfts agree with gi. high risk for complication from immune suppressing rx Subjective ROS Limited/Unobtainable: No Constitutional: Reports: malaise, weakness HEENT: Reports: no symptoms Cardiovascular: Reports: no symptoms Respiratory: Reports: cough, shortness of breath, sputum Gastrointestinal/Abdominal: Reports: difficulty swallowing Genitourinary: Reports: no symptoms Neurologic/Psychiatric: Reports: pre-existing deficit, seizure Endocrine: Reports: no symptoms Hematologic/Lymphatic: Reports: anemia Allergies: Coded Allergies: CODEINE (Verified Allergy, Unknown, HIVES, 09/15/09) All Systems: reviewed and negative except above Subjective no events. minimal congestion. no fever or chills. tolerating feeds. labs noted. on iv abx Objective Last 24 Hour Vital Signs Date Time Temp Pulse Resp B/P (MAP) Pulse Ox O2 Delivery O2 Flow Rate FiO2 05/22/19 18:00 93 23 150/68 (95) 99 05/22/19 17:00 102 24 150/70 (96) 100 05/22/19 16:11 101 05/22/19 16:00 T-piece 5.0 T-piece 5.0 T-piece 5.0 05/22/19 16:00 5.0 28 05/22/19 16:00 98.2 96 24 130/51 (77) 98 05/22/19 15:00 98 24 146/68 (94) 100 05/22/19 14:36 100 21 100 T-Piece 5.0 28 98 24 100 05/22/19 14:00 97 25 146/67 (93) 99 05/22/19 14:00 97 26 132/60 (84) 98 05/22/19 13:00 97 25 146/67 (93) 99 05/22/19 12:36 100 T-Piece 5.0 28 05/22/19 12:00 T-piece 5.0 T-piece 5.0 T-piece 5.0 05/22/19 12:00 98.8 98 24 142/70 (94) 98 05/22/19 12:00 5.0 28 05/22/19 12:00 98 05/22/19 11:00 98 24 127/55 (79) 97 05/22/19 10:28 103 21 100 T-Piece 5.0 28 98 25 100 05/22/19 10:18 98 25 100 T-Piece 5.0 28 100 25 100 05/22/19 10:00 100 26 127/58 (81) 98 05/22/19 09:00 108 21 147/66 (93) 98 05/22/19 08:00 5.0 28 05/22/19 08:00 T-piece 5.0 T-piece 5.0 T-piece 5.0 05/22/19 08:00 98.8 103 28 124/71 (88) 97 05/22/19 07:58 103 05/22/19 07:49 106 20 100 T-Piece 5.0 28 103 20 99 05/22/19 07:39 99 T-Piece 5.0 28 05/22/19 07:00 99 26 134/61 (85) 99 05/22/19 06:00 107 23 151/70 (97) 99 05/22/19 05:00 98.7 98 25 133/61 (85) 100 05/22/19 04:00 100 24 131/63 (85) 100 05/22/19 04:00 5.0 28 05/22/19 04:00 98 05/22/19 04:00 T-piece 5.0 T-piece 5.0 T-piece 5.0 05/22/19 03:11 102 23 100 T-Piece 5.0 28 100 25 99 05/22/19 03:00 100 24 151/73 (99) 100 05/22/19 02:00 96 24 154/67 (96) 98 05/22/19 01:10 100 T-Piece 5.0 28 05/22/19 01:00 98 25 140/61 (87) 97 05/22/19 00:16 102 23 100 T-Piece 5.0 28 101 24 99 05/22/19 00:00 101 25 141/62 (88) 97 05/22/19 00:00 5.0 28 05/22/19 00:00 100 05/22/19 00:00 T-piece 5.0 T-piece 5.0 T-piece 5.0 05/21/19 23:00 99 24 124/58 (80) 98 05/21/19 22:09 99 25 100 T-Piece 5.0 28 99 24 100 05/21/19 22:00 100 24 132/62 (85) 99 05/21/19 21:00 97 25 160/71 (100) 100 05/21/19 20:00 93 05/21/19 20:00 T-piece 5.0 T-piece 5.0 T-piece 5.0 05/21/19 20:00 5.0 28 05/21/19 20:00 98.6 93 23 161/80 (107) 100 05/21/19 19:10 100 T-Piece 5.0 28 05/21/19 19:00 90 24 143/67 (92) 100 Intake and Output 05/21/19 05/22/19 19:00 07:00 Intake Total 1670 ml 1220 ml Output Total 1780 ml 620 ml Balance -110 ml 600 ml Free Water 300 ml 200 ml IV Total 200 ml Tube Feeding 720 ml 720 ml Other 450 ml 300 ml Output Urine Total 700 ml 300 ml Gastric Drainage Total 1080 ml 320 ml # Bowel Movements 1 Laboratory Tests 05/22/19 04:30: White Blood Count 9.0, Red Blood Count 2.94L, Hemoglobin 8.5L, Hematocrit 25.8L , Mean Corpuscular Volume 88, Mean Corpuscular Hemoglobin 28.8, Mean Corpuscular Hemoglobin Concent 32.8, Red Cell Distribution Width 13.8, Platelet Count 367, Mean Platelet Volume 5.1L, Neutrophils (%) (Auto) 57.3, Lymphocytes ( %) (Auto) 33.0, Monocytes (%) (Auto) 4.8, Eosinophils (%) (Auto) 4.1H, Basophils (%) (Auto) 0.8, Sodium Level 140, Potassium Level 4.9, Chloride Level 101, Carbon Dioxide Level 28, Anion Gap 11, Blood Urea Nitrogen 36H, Creatinine 0.9, Estimat Glomerular Filtration Rate > 60, Glucose Level 100, Calcium Level 9.4, Phosphorus Level 4.1, Magnesium Level 1.2L, Total Bilirubin 0.2, Aspartate Amino Transf (AST/SGOT) 32, Alanine Aminotransferase (ALT/SGPT) 60, Alkaline Phosphatase 223H, C-Reactive Protein, Quantitative 4.4H, Pro-B-Type Natriuretic Peptide 791H, Total Protein 8.2, Albumin 2.2L, Globulin 6.0, Albumin/Globulin Ratio 0.4L Height (Feet): 5 Height (Inches): 3.00 Weight (Pounds): 130 Objective General Appearance: WD/WN, confused. on trach collar Neck: supple Cardiovascular: normal rate, regular rhythm Respiratory/Chest: chest wall non-tender, rhonchi - bilaterally(minimal) Abdomen: normal bowel sounds, non tender, soft, no organomegaly Edema: no edema noted Arm (L), no edema noted Arm (R), no edema noted Leg (L), no edema noted Leg (R), no edema noted Pedal (L), no edema noted Pedal (R), no edema noted Generalized Neurologic: disoriented, unresponsive, aphasia Irvin Beltrán MD May 22, 2019 18:19
--- NOTE | 2019-05-22 19:27 | NUR ---
NURSE NOTES: Endorsement received from Radha Beaulieu RN. Patient opens eyes, does not track. Shiley XLT receiving 28%, 5 liters on cool aerosol. With GJ tube. G tube connected to low intermittent suction. J tube receiving Vital 1.2 at 60ml/hr. Purewick in place. Right forearm g24 and right hand g22. No signs of infiltration. On P200 mattress. On seizure precautions. Head of bed kept elevated. Bed locked and in low position. Call light within reach. Bed alarm on. Will continue to monitor.
--- NOTE | 2019-05-22 19:27 | NUR ---
HAND-OFF: Report given to JEANNINE Kraus.
--- NOTE | 2019-05-22 19:30 | Progress Note ---
DATE: 05/22/2019 CARDIOLOGY PROGRESS NOTE SUBJECTIVE: Blood pressure parameters at high normal range now, but stable overall. Monitor with sinus tachycardia and sinus rhythm. Autoimmune hepatitis not suspected, but the patient is not a candidate for immunosuppressive therapy at this time. OBJECTIVE: VITAL SIGNS: Blood pressure 150/70, pulse 102, and respirations 24. LUNGS: Bilateral breath sounds. HEART: Regular rhythm and rate. Normal S1, S2. ABDOMEN: Soft. GJ tube intact. EXTREMITIES: Trace dependent edema. LABORATORY DATA: Sodium 140, potassium 4.9, bicarb 28, BUN 36, creatinine 0.9, and magnesium 1.2. Pro-natriuretic peptide 791. White count 9 and hemoglobin 8.5. IMPRESSION: Condition remains unchanged. PLAN: 1. Stable for subacute facility once located. 2. We will add intravenous magnesium replacement at this time. 3. Other cardiovascular therapy to be continued without change. 4. May consider beta-martha therapy if daughter agrees. Bg Hagen M.D. DR: DAMEON JOB#: [id number] CC:
--- NOTE | 2019-05-22 22:00 | NUR ---
NURSE NOTES: Patient repositioned. Secretions suctioned.
[2019-05-23] VITALS (24 sets, daily range): BP systolic 119–167; BP diastolic 52–81
--- NOTE | 2019-05-23 | NUR ---
NURSE NOTES: Patient asleep. No signs of pain or discomfort. Sinus rhythm on the monitor. Tolerating feeding. G tube remains connected on low intermittent suction. Suction pressure rechecked. Flushed as ordered. Head of bed kept elevated.
--- NOTE | 2019-05-23 02:00 | NUR ---
NURSE NOTES: Secretions suctioned. Vital signs stable.
[2019-05-23] MEDS: Albuterol/Ipratropium 3ml neb HHN SCH ×6 (03:18→23:14)
--- NOTE | 2019-05-23 04:00 | NUR ---
NURSE NOTES: Patient repositioned. GJ tube flushed as ordered.
--- NOTE | 2019-05-23 05:00 | NUR ---
NURSE NOTES: Bed bath, oral care, change of linens and dressings done.
--- NOTE | 2019-05-23 05:58 | Pulmonolgy Critical Care Note ---
Critical Care - Asmt/Plan Assessment/Plan: Pulmonary CCM Progress Note Impression: Fungemia KPC+ ID following history of Pneumonia Trach, G tube, Hypertension, Cardiac disease, Dementia, Previous CVA, Seizure disorder, Respiratory failure with hypoxia Anemia, Sacral ulcer renal cyst chronic pulmonary congestion Plan antifungals/ID antimicrobials/ID monitor for change; care reviewed recent cultures reviewed monitor imaging for change Vent PRN but DNR monitor labs for change maintain reflux aspiration elevate head and monitor secretions monitor labs monitor vitals; and adjust meds; cards following; still tachy DNR. No CPR. ICU care reviewed meds noted and updated; neb therapy off load as able prognosis very poor nutrition/fees/ dietary as is; monitor residuals skin care management reviewed difficulty with placement all changes noted and discussed chronic management as able medications/laboratory data/nursing notes/ICU care reviewed in detail note reviewed and edited care discussed with RN and RT time spent x 40 minutes Subjective ROS Limited/Unobtainable: Yes Allergies: Coded Allergies: CODEINE (Verified Allergy, Unknown, HIVES, 09/15/09) Subjective overnight events noted; poor LOC on isolation; remains off vent for now Fungemia; noted [facility] ICU care issues discussed requires suctioning for ongoing congestion Objective Vital Signs Noted Objective WDWN NAD contracted off vent reduced breath sounds bilaterally with some rhonchi; no wheeze [id number] without MRG NABS nontender no HSM no CC minimal nonfocal nonverbal trach and gt reviewed and edited Laboratory Tests Noted Critical Care - Objective Last 24 Hour Vital Signs Date Time Temp Pulse Resp B/P (MAP) Pulse Ox O2 Delivery O2 Flow Rate FiO2 05/23/19 05:00 92 21 139/65 (89) 99 05/23/19 04:00 98.3 99 22 158/81 (106) 100 05/23/19 04:00 91 05/23/19 04:00 5.0 28 05/23/19 04:00 T-piece 5.0 T-piece 5.0 T-piece 5.0 05/23/19 03:18 96 23 100 T-Piece 5.0 28 92 25 100 05/23/19 03:00 97 23 137/67 (90) 99 05/23/19 02:00 92 22 141/73 (95) 99 05/23/19 01:01 100 T-Piece 5.0 28 05/23/19 01:00 97 24 120/57 (78) 98 05/23/19 00:00 94 05/23/19 00:00 98.5 96 23 137/59 (85) 99 05/23/19 00:00 T-piece 5.0 T-piece 5.0 T-piece 5.0 05/23/19 00:00 5.0 28 05/22/19 23:10 93 22 100 T-Piece 5.0 28 94 24 100 05/22/19 23:00 93 23 137/61 (86) 100 05/22/19 22:08 95 24 100 T-Piece 5.0 28 92 22 98 05/22/19 22:00 93 23 123/58 (79) 98 05/22/19 21:00 95 22 141/70 (93) 100 05/22/19 20:00 98.4 94 22 140/71 (94) 100 05/22/19 20:00 94 05/22/19 20:00 5.0 28 05/22/19 20:00 T-piece 5.0 T-piece 5.0 T-piece 5.0 05/22/19 19:30 99 T-Piece 5.0 28 05/22/19 19:29 94 17 100 T-Piece 5.0 28 91 23 99 05/22/19 19:00 93 22 141/68 (92) 98 05/22/19 18:00 93 23 150/68 (95) 99 05/22/19 17:00 102 24 150/70 (96) 100 05/22/19 16:11 101 05/22/19 16:00 T-piece 5.0 T-piece 5.0 T-piece 5.0 05/22/19 16:00 5.0 28 05/22/19 16:00 98.2 96 24 130/51 (77) 98 05/22/19 15:00 98 24 146/68 (94) 100 05/22/19 14:36 100 21 100 T-Piece 5.0 28 98 24 100 05/22/19 14:00 97 25 146/67 (93) 99 05/22/19 14:00 97 26 132/60 (84) 98 05/22/19 13:00 97 25 146/67 (93) 99 05/22/19 12:36 100 T-Piece 5.0 28 05/22/19 12:00 T-piece 5.0 T-piece 5.0 T-piece 5.0 05/22/19 12:00 98.8 98 24 142/70 (94) 98 05/22/19 12:00 5.0 28 05/22/19 12:00 98 05/22/19 11:00 98 24 127/55 (79) 97 05/22/19 10:28 103 21 100 T-Piece 5.0 28 98 25 100 05/22/19 10:18 98 25 100 T-Piece 5.0 28 100 25 100 05/22/19 10:00 100 26 127/58 (81) 98 05/22/19 09:00 108 21 147/66 (93) 98 05/22/19 08:00 5.0 28 05/22/19 08:00 T-piece 5.0 T-piece 5.0 T-piece 5.0 05/22/19 08:00 98.8 103 28 124/71 (88) 97 05/22/19 07:58 103 05/22/19 07:49 106 20 100 T-Piece 5.0 28 103 20 99 05/22/19 07:39 99 T-Piece 5.0 28 05/22/19 07:00 99 26 134/61 (85) 99 05/22/19 06:00 107 23 151/70 (97) 99 Accucheck: 110 Critical Care - Subjective ROS Limited/Unobtainable: No Condition: stable FI02: 28 Vent Support Mode: CPAP Vent Tidal Volume: 450 Sputum Amount: Moderate PEEP: 5.0 PIP: 19 Tube Feeding Amount: 60 I&O: Intake and Output 05/22/19 05/23/19 19:00 07:00 Intake Total 2270 ml 1350 ml Output Total 1260 ml Balance 1010 ml 1350 ml Free Water 300 ml 300 ml IV Total 800 ml Tube Feeding 720 ml 600 ml Other 450 ml 450 ml Output Urine Total 810 ml Gastric Drainage Total 450 ml # Bowel Movements 1 ET-Tube: 6.0 Bg Moffett MD May 23, 2019 05:58
--- NOTE | 2019-05-23 07:08 | NUR ---
HAND-OFF: Report given to JEANNINE Howard.
--- NOTE | 2019-05-23 07:10 | NUR ---
NURSE NOTES: Received report from JEANNINE Jean Baptiste. Patient is obtunded. Shiley 6.0 XLT with FiO2 25%. GJ tube intact and running with Vital 1.2 60ml/hr via Jtube and Gtube is connected to low intermittent suction. Purewick intact and suctioning with yellow color urine. kept dry, clean, comfortable and HOB>30. Will continue plan of care.
--- NOTE | 2019-05-23 07:35 | General Progress Note ---
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 - Anemia with OB (-) stools - Resp failure, s/p Trach - OBS, vegetative obtunded unresponsive state, bedbound with contracted extremities - h/o minor GJ tube site irritation - poor Prognosis Recommendations - No plans for immune suppression at this time (risk benefit ratio in favor of holding off Rx) - abx per ID - PPI daily - Cristian BID - antibiotic ointment to GJT site PRN - aspiration precautions - elevate HOB - Vital AF 1.2 - transfuse to keep Hg > 7 - J tube feeds - G tube ---> LIS - check ESR --> elevated - further evaluation for autoimmune hepatitis (anti DNA) - DS DNA neg, SS DNA pending Subjective ROS Limited/Unobtainable: No Allergies: Coded Allergies: CODEINE (Verified Allergy, Unknown, HIVES, 09/15/09) Objective Last 24 Hour Vital Signs Date Time Temp Pulse Resp B/P (MAP) Pulse Ox O2 Delivery O2 Flow Rate FiO2 05/23/19 07:00 95 20 160/72 (101) 100 05/23/19 06:57 96 24 100 T-Piece 5.0 28 94 22 100 05/23/19 06:00 92 22 137/62 (87) 100 05/23/19 05:00 92 21 139/65 (89) 99 05/23/19 04:00 98.3 99 22 158/81 (106) 100 05/23/19 04:00 91 05/23/19 04:00 5.0 28 05/23/19 04:00 T-piece 5.0 T-piece 5.0 T-piece 5.0 05/23/19 03:18 96 23 100 T-Piece 5.0 28 92 25 100 05/23/19 03:00 97 23 137/67 (90) 99 05/23/19 02:00 92 22 141/73 (95) 99 05/23/19 01:01 100 T-Piece 5.0 28 05/23/19 01:00 97 24 120/57 (78) 98 05/23/19 00:00 94 05/23/19 00:00 98.5 96 23 137/59 (85) 99 05/23/19 00:00 T-piece 5.0 T-piece 5.0 T-piece 5.0 05/23/19 00:00 5.0 28 05/22/19 23:10 93 22 100 T-Piece 5.0 28 94 24 100 05/22/19 23:00 93 23 137/61 (86) 100 05/22/19 22:08 95 24 100 T-Piece 5.0 28 92 22 98 05/22/19 22:00 93 23 123/58 (79) 98 05/22/19 21:00 95 22 141/70 (93) 100 05/22/19 20:00 98.4 94 22 140/71 (94) 100 05/22/19 20:00 94 05/22/19 20:00 5.0 28 05/22/19 20:00 T-piece 5.0 T-piece 5.0 T-piece 5.0 05/22/19 19:30 99 T-Piece 5.0 28 05/22/19 19:29 94 17 100 T-Piece 5.0 28 91 23 99 05/22/19 19:00 93 22 141/68 (92) 98 05/22/19 18:00 93 23 150/68 (95) 99 05/22/19 17:00 102 24 150/70 (96) 100 05/22/19 16:11 101 05/22/19 16:00 T-piece 5.0 T-piece 5.0 T-piece 5.0 05/22/19 16:00 5.0 28 05/22/19 16:00 98.2 96 24 130/51 (77) 98 05/22/19 15:00 98 24 146/68 (94) 100 05/22/19 14:36 100 21 100 T-Piece 5.0 28 98 24 100 05/22/19 14:00 97 25 146/67 (93) 99 05/22/19 14:00 97 26 132/60 (84) 98 05/22/19 13:00 97 25 146/67 (93) 99 05/22/19 12:36 100 T-Piece 5.0 28 05/22/19 12:00 T-piece 5.0 T-piece 5.0 T-piece 5.0 05/22/19 12:00 98.8 98 24 142/70 (94) 98 05/22/19 12:00 5.0 28 05/22/19 12:00 98 05/22/19 11:00 98 24 127/55 (79) 97 05/22/19 10:28 103 21 100 T-Piece 5.0 28 98 25 100 05/22/19 10:18 98 25 100 T-Piece 5.0 28 100 25 100 05/22/19 10:00 100 26 127/58 (81) 98 05/22/19 09:00 108 21 147/66 (93) 98 05/22/19 08:00 5.0 28 05/22/19 08:00 T-piece 5.0 T-piece 5.0 T-piece 5.0 05/22/19 08:00 98.8 103 28 124/71 (88) 97 05/22/19 07:58 103 05/22/19 07:49 106 20 100 T-Piece 5.0 28 103 20 99 05/22/19 07:39 99 T-Piece 5.0 28 Intake and Output 05/22/19 05/23/19 19:00 07:00 Intake Total 2270 ml 1470 ml Output Total 1260 ml 950 ml Balance 1010 ml 520 ml Free Water 300 ml 300 ml IV Total 800 ml Tube Feeding 720 ml 720 ml Other 450 ml 450 ml Output Urine Total 810 ml 750 ml Gastric Drainage Total 450 ml 200 ml # Bowel Movements 2 Height (Feet): 5 Height (Inches): 3.00 Weight (Pounds): 133 General Appearance: no apparent distress EENT: normal ENT inspection Neck: supple Cardiovascular: tachycardia Respiratory/Chest: decreased breath sounds Abdomen: normal bowel sounds, non tender, soft Extremities: non-tender Gary Guzman MD May 23, 2019 07:35
[2019-05-23] MEDS: Pantoprazole Inj IVP SCH (08:55)
[2019-05-23] MEDS: levETIRAcetam 500mg/5ml Liquid GT SCH ×2 (08:55→21:10)
[2019-05-23] MEDS: Heparin 5000 units/ml inj SUBQ SCH ×2 (09:00→21:10)
--- NOTE | 2019-05-23 09:02 | NUR ---
NURSE NOTES: All due meds given as ordered. Oral care provided.
[2019-05-23] MEDS: Amikacin for Inhalation 2ML INH SCH ×2 (09:48→21:39)
--- NOTE | 2019-05-23 10:45 | Nephrology Progress Note ---
Assessment/Plan Problem List: (1) Acute renal failure (ARF) Assessment: Cr stable (2) Chronic respiratory failure (3) Anemia (4) Sepsis Assessment Acute renal failure Respiratory failure - Trach Low Mag- Low k , Low Na Anemia UTI / Sepsis Proteinuria / HypoAlbuminemia high Trigs Sz decubs bed bound DNR Plan add cardiazem for bp Transfused 05/09 has JT bolus Albumin as needed K and Mag and Phos supplement as needed Hydrate as needed Urine studies avoid Nephrotoxics mag K Phos supplements as needed monitor renal parameters Subjective ROS Limited/Unobtainable: Yes Objective Objective Last 24 Hour Vital Signs Date Time Temp Pulse Resp B/P (MAP) Pulse Ox O2 Delivery O2 Flow Rate FiO2 05/23/19 09:45 96 21 100 T-Piece 5.0 28 97 23 99 05/23/19 09:45 99 T-Piece 5.0 28 05/23/19 09:00 97 23 166/70 (102) 99 05/23/19 08:00 5.0 28 05/23/19 08:00 98.2 98 23 148/67 (94) 99 05/23/19 08:00 94 05/23/19 08:00 T-piece 5.0 T-piece 5.0 T-piece 5.0 05/23/19 07:00 95 20 160/72 (101) 100 05/23/19 06:57 96 24 100 T-Piece 5.0 28 94 22 100 05/23/19 06:00 92 22 137/62 (87) 100 05/23/19 05:00 92 21 139/65 (89) 99 05/23/19 04:00 98.3 99 22 158/81 (106) 100 05/23/19 04:00 91 05/23/19 04:00 5.0 28 05/23/19 04:00 T-piece 5.0 T-piece 5.0 T-piece 5.0 05/23/19 03:18 96 23 100 T-Piece 5.0 28 92 25 100 05/23/19 03:00 97 23 137/67 (90) 99 05/23/19 02:00 92 22 141/73 (95) 99 05/23/19 01:01 100 T-Piece 5.0 28 05/23/19 01:00 97 24 120/57 (78) 98 05/23/19 00:00 94 2/22/20 00:00 98.5 96 23 137/59 (85) 99 05/23/19 00:00 T-piece 5.0 T-piece 5.0 T-piece 5.0 05/23/19 00:00 5.0 28 05/22/19 23:10 93 22 100 T-Piece 5.0 28 94 24 100 05/22/19 23:00 93 23 137/61 (86) 100 05/22/19 22:08 95 24 100 T-Piece 5.0 28 92 22 98 05/22/19 22:00 93 23 123/58 (79) 98 05/22/19 21:00 95 22 141/70 (93) 100 05/22/19 20:00 98.4 94 22 140/71 (94) 100 05/22/19 20:00 94 05/22/19 20:00 5.0 28 05/22/19 20:00 T-piece 5.0 T-piece 5.0 T-piece 5.0 05/22/19 19:30 99 T-Piece 5.0 28 05/22/19 19:29 94 17 100 T-Piece 5.0 28 91 23 99 05/22/19 19:00 93 22 141/68 (92) 98 05/22/19 18:00 93 23 150/68 (95) 99 05/22/19 17:00 102 24 150/70 (96) 100 05/22/19 16:11 101 05/22/19 16:00 T-piece 5.0 T-piece 5.0 T-piece 5.0 05/22/19 16:00 5.0 28 05/22/19 16:00 98.2 96 24 130/51 (77) 98 05/22/19 15:00 98 24 146/68 (94) 100 05/22/19 14:36 100 21 100 T-Piece 5.0 28 98 24 100 05/22/19 14:00 97 25 146/67 (93) 99 05/22/19 14:00 97 26 132/60 (84) 98 05/22/19 13:00 97 25 146/67 (93) 99 05/22/19 12:36 100 T-Piece 5.0 28 05/22/19 12:00 T-piece 5.0 T-piece 5.0 T-piece 5.0 05/22/19 12:00 98.8 98 24 142/70 (94) 98 05/22/19 12:00 5.0 28 05/22/19 12:00 98 05/22/19 11:00 98 24 127/55 (79) 97 Intake and Output 05/22/19 05/23/19 19:00 07:00 Intake Total 2270 ml 1470 ml Output Total 1260 ml 950 ml Balance 1010 ml 520 ml Free Water 300 ml 300 ml IV Total 800 ml Tube Feeding 720 ml 720 ml Other 450 ml 450 ml Output Urine Total 810 ml 750 ml Gastric Drainage Total 450 ml 200 ml # Bowel Movements 2 Current Medications Medications (Trade) Dose Ordered Sig/Maicol Route PRN Reason Start Time Stop Time Status Last Admin Dose Admin Acetaminophen (Tylenol) 650 mg Q4H PRN RECTAL T>100.5 / Mild Pain 05/07/19 09:45 06/06/19 09:44 05/07/19 10:13 Albuterol/ Ipratropium (Albuterol/ Ipratropium) 3 ml Q4HRT HHN 05/21/19 23:00 05/26/19 22:59 05/23/19 06:56 Amikacin Sulfate (Amikin) 500 mg Q12HRT@1000,2200 INH 05/21/19 11:00 05/28/19 10:59 05/23/19 09:48 Atropine Sulfate (Atropine Opth Adriana) 1 drop Q6HR SL 05/11/19 00:00 06/10/19 08:59 05/23/19 05:27 Fluconazole/ Sodium Chloride 200 ml @ 100 mls/hr Q24H IV 05/18/19 12:00 05/25/19 13:00 05/22/19 11:31 Heparin Sodium (Porcine) (Heparin 5000 units/ml) 5,000 units EVERY 12 HOURS SUBQ 05/01/19 21:00 05/31/19 20:59 05/23/19 09:00 Hydralazine HCl (Apresoline) 10 mg Q4H PRN IV For High Blood Pressure 05/11/19 05:45 06/10/19 05:44 05/12/19 00:08 Levetiracetam (Keppra) 500 mg Q12HR GT 05/01/19 21:00 05/28/19 08:59 05/23/19 08:55 Pantoprazole (Protonix) 40 mg DAILY IVP 05/15/19 18:15 06/14/19 18:14 05/23/19 08:55 Height (Feet): 5 Height (Inches): 3.00 Weight (Pounds): 133 General Appearance: no apparent distress Cardiovascular: tachycardia Respiratory/Chest: decreased breath sounds Abdomen: distended Objective no change Eric Cortez MD May 23, 2019 10:45
--- NOTE | 2019-05-23 10:55 | General Progress Note ---
Assessment/Plan Problem List: (1) Seizure ICD Codes: R56.9 - Unspecified convulsions SNOMED: 40787416 (2) Anemia ICD Codes: D64.9 - Anemia, unspecified SNOMED: 904301487 Qualifiers: Qualified Codes: D64.9 - Anemia, unspecified (3) Sepsis ICD Codes: A41.9 - Sepsis, unspecified organism SNOMED: 37537575, 728636416 Qualifiers: Qualified Codes: A41.9 - Sepsis, unspecified organism (4) Respiratory failure with hypoxia ICD Codes: J96.91 - Respiratory failure, unspecified with hypoxia SNOMED: 92198618242570904 Qualifiers: Qualified Codes: J96.21 - Acute and chronic respiratory failure with hypoxia (5) HCAP (healthcare-associated pneumonia) ICD Codes: J18.9 - Pneumonia, unspecified organism SNOMED: 173027761, 388765192 (6) Sacral decubitus ulcer ICD Codes: L89.159 - Pressure ulcer of sacral region, unspecified stage SNOMED: 279417415 (7) HTN (hypertension) ICD Codes: I10 - Essential (primary) hypertension SNOMED: 31252704 (8) Chronic vegetative state ICD Codes: R40.3 - Persistent vegetative state SNOMED: 88319730 (9) Chronic respiratory failure ICD Codes: J96.10 - Chronic respiratory failure, unspecified whether with hypoxia or hypercapnia SNOMED: 77203836 (10) Limited mobility ICD Codes: Z74.09 - Other reduced mobility SNOMED: 6942872 Status: stable, progressing Assessment/Plan: iv abx per id monitor for bleeding vent as needed resp rx suctioning replace lytes as needed j tube feeds g port to gravity skin care sz rx bowel regime monitor lfts Subjective ROS Limited/Unobtainable: No Constitutional: Reports: malaise, weakness HEENT: Reports: no symptoms Cardiovascular: Reports: no symptoms Respiratory: Reports: cough, shortness of breath, sputum Gastrointestinal/Abdominal: Reports: difficulty swallowing Genitourinary: Reports: no symptoms Neurologic/Psychiatric: Reports: pre-existing deficit, seizure Endocrine: Reports: no symptoms Hematologic/Lymphatic: Reports: no symptoms Allergies: Coded Allergies: CODEINE (Verified Allergy, Unknown, HIVES, 09/15/09) All Systems: reviewed and negative except above Subjective no events. minimal congestion. no fever or chills. tolerating feeds. labs noted. on iv abx Objective Last 24 Hour Vital Signs Date Time Temp Pulse Resp B/P (MAP) Pulse Ox O2 Delivery O2 Flow Rate FiO2 05/23/19 09:45 96 21 100 T-Piece 5.0 28 97 23 99 05/23/19 09:45 99 T-Piece 5.0 28 05/23/19 09:00 97 23 166/70 (102) 99 05/23/19 08:00 5.0 28 05/23/19 08:00 98.2 98 23 148/67 (94) 99 05/23/19 08:00 94 05/23/19 08:00 T-piece 5.0 T-piece 5.0 T-piece 5.0 05/23/19 07:00 95 20 160/72 (101) 100 05/23/19 06:57 96 24 100 T-Piece 5.0 28 94 22 100 05/23/19 06:00 92 22 137/62 (87) 100 05/23/19 05:00 92 21 139/65 (89) 99 05/23/19 04:00 98.3 99 22 158/81 (106) 100 05/23/19 04:00 91 05/23/19 04:00 5.0 28 05/23/19 04:00 T-piece 5.0 T-piece 5.0 T-piece 5.0 05/23/19 03:18 96 23 100 T-Piece 5.0 28 92 25 100 05/23/19 03:00 97 23 137/67 (90) 99 05/23/19 02:00 92 22 141/73 (95) 99 05/23/19 01:01 100 T-Piece 5.0 28 05/23/19 01:00 97 24 120/57 (78) 98 05/23/19 00:00 94 05/23/19 00:00 98.5 96 23 137/59 (85) 99 05/23/19 00:00 T-piece 5.0 T-piece 5.0 T-piece 5.0 05/23/19 00:00 5.0 28 05/22/19 23:10 93 22 100 T-Piece 5.0 28 94 24 100 05/22/19 23:00 93 23 137/61 (86) 100 05/22/19 22:08 95 24 100 T-Piece 5.0 28 92 22 98 05/22/19 22:00 93 23 123/58 (79) 98 05/22/19 21:00 95 22 141/70 (93) 100 05/22/19 20:00 98.4 94 22 140/71 (94) 100 05/22/19 20:00 94 05/22/19 20:00 5.0 28 05/22/19 20:00 T-piece 5.0 T-piece 5.0 T-piece 5.0 05/22/19 19:30 99 T-Piece 5.0 28 05/22/19 19:29 94 17 100 T-Piece 5.0 28 91 23 99 05/22/19 19:00 93 22 141/68 (92) 98 05/22/19 18:00 93 23 150/68 (95) 99 05/22/19 17:00 102 24 150/70 (96) 100 05/22/19 16:11 101 05/22/19 16:00 T-piece 5.0 T-piece 5.0 T-piece 5.0 05/22/19 16:00 5.0 28 05/22/19 16:00 98.2 96 24 130/51 (77) 98 05/22/19 15:00 98 24 146/68 (94) 100 05/22/19 14:36 100 21 100 T-Piece 5.0 28 98 24 100 05/22/19 14:00 97 25 146/67 (93) 99 05/22/19 14:00 97 26 132/60 (84) 98 05/22/19 13:00 97 25 146/67 (93) 99 05/22/19 12:36 100 T-Piece 5.0 28 05/22/19 12:00 T-piece 5.0 T-piece 5.0 T-piece 5.0 05/22/19 12:00 98.8 98 24 142/70 (94) 98 05/22/19 12:00 5.0 28 05/22/19 12:00 98 05/22/19 11:00 98 24 127/55 (79) 97 Intake and Output 05/22/19 05/23/19 19:00 07:00 Intake Total 2270 ml 1470 ml Output Total 1260 ml 950 ml Balance 1010 ml 520 ml Free Water 300 ml 300 ml IV Total 800 ml Tube Feeding 720 ml 720 ml Other 450 ml 450 ml Output Urine Total 810 ml 750 ml Gastric Drainage Total 450 ml 200 ml # Bowel Movements 2 Height (Feet): 5 Height (Inches): 3.00 Weight (Pounds): 133 Objective General Appearance: WD/WN, confused. on trach collar Neck: supple Cardiovascular: normal rate, regular rhythm Respiratory/Chest: chest wall non-tender, rhonchi - bilaterally(minimal) Abdomen: normal bowel sounds, non tender, soft, no organomegaly Edema: no edema noted Arm (L), no edema noted Arm (R), no edema noted Leg (L), no edema noted Leg (R), no edema noted Pedal (L), no edema noted Pedal (R), no edema noted Generalized Neurologic: disoriented, unresponsive, aphasia Irvin Beltrán MD May 23, 2019 10:55
--- NOTE | 2019-05-23 11:36 | NUR ---
NURSE NOTES: Repositioned patient. Trach and oral suction given.
--- NOTE | 2019-05-23 13:22 | NUR ---
NURSE NOTES: Repositioned patient. No distress noted. Kept dry, clean and comfortable. Will continue plan of care.
[2019-05-23] MEDS ORDERED: dilTIAZem HCl 30mg tab GT SCH (14:00)
[2019-05-23] MEDS ORDERED: NS 275ml ONE ×2 (15:12→16:12)
[2019-05-23] MEDS ORDERED: Tubing IV Secondary IV ONE ×2 (15:12→16:12)
--- NOTE | 2019-05-23 15:46 | NUR ---
NURSE NOTES: Bed bath given. Wound Tx given and photos taken.
--- NOTE | 2019-05-23 17:59 | NUR ---
NURSE NOTES: Repositioned patient and Oral and trach care given.
--- NOTE | 2019-05-23 18:50 | NUR ---
RESPIRATORY NOTE: Received pt on 28% Cool Aerosol via T-Piece. Pt is trach-dependent w/ a cuffed, Shiley 6 XLT tube. Cuff is currently deflated. Pt is awake, responds to stimuli. B/S flory. rhonchi, sxn small to moderate amounts of thick/thin/frothy, pale-yellow secretions. [place] at bedside. Pt resting comfortably, in no apparent distress at this time. Will continue to monitor pt.
--- NOTE | 2019-05-23 18:59 | NUR ---
HAND-OFF: Report given to JEANNINE Elaine. Endorsed plan of care.
--- NOTE | 2019-05-23 19:05 | NUR ---
NURSE NOTES: Received patient from JEANNINE LINARES. Will continue plan of care.
--- NOTE | 2019-05-23 20:00 | NUR ---
NURSE NOTES: Patient has t-piece Shiley 6 xlt on 28% O2, saturating at 97%. Frequent suctioning needed. On Vital AF feeding at 60ml/hr via J-tube, flushed with 150ml H2O. G-tube flushed with 100ml H2O on low intermittent suctioning. Purewick in place and suctioning well. IV on the right forearm and right hand patent, asymptomatic and flushing well; running TKO. Turned and repositioned. Safety measures in place; bed low locked and alarm is on. Will continue plan of care.
[2019-05-23] MEDS: Carvedilol 6.25mg Tab GT SCH (21:10)
--- NOTE | 2019-05-23 21:15 | Progress Note ---
DATE: 05/23/2019 CARDIOLOGY PROGRESS NOTE SUBJECTIVE: Some episodes of congestion. Suctioning ongoing. Feedings by GJ tube. OBJECTIVE: VITAL SIGNS: Blood pressure 148/67, pulse 97, respiratory rate 23, afebrile. LUNGS: Bilateral breath sounds. CARDIAC: Regular rhythm and rate. Normal S1 and S2. ABDOMEN: Soft. EXTREMITIES: Trace edema. PLAN: GJ tube intact, on trach collar. We will add carvedilol for blood pressure and heart rate management. Other therapy as is. Bg Hagen M.D. DR: GRACE JOB#: [id number] CC:
--- NOTE | 2019-05-23 22:00 | NUR ---
NURSE NOTES: Frequent suctioning provided, oral care done. Turned and repositioned. Daughter at bedside.
[2019-05-24] VITALS (24 sets, daily range): BP systolic 120–174; BP diastolic 49–132
--- NOTE | 2019-05-24 | NUR ---
NURSE NOTES: Patient is sleeping comfortably. No changes in condition. Frequent suctioning provided. Will continue to monitor.
--- NOTE | 2019-05-24 02:00 | NUR ---
NURSE NOTES: No changes in patient condition. Vital signs stable. Frequent suctioning provided. Turned and repositioned. Patient is comfortable.
[2019-05-24] MEDS: Albuterol/Ipratropium 3ml neb HHN SCH ×6 (03:00→23:21)
--- NOTE | 2019-05-24 04:00 | NUR ---
NURSE NOTES: Bed bath given, linens changes, oral care done, wound dressings changed, suction provided, turned and repositioned. Safety measures in place. Vital signs stable. Patient is comfortable. Report given to JEANNINE Kraus.
--- NOTE | 2019-05-24 04:00 | NUR ---
NURSE NOTES: Endorsement received from JEANNINE Dobson for continuity of care. Patient obtunded. Shiley XLT receiving 28%, 5 liters on cool aerosol. With GJ tube. G tube connected to low intermittent suction. Noted with light yellowish output. J tube receiving Vital 1.2 at 60ml/hr. Purewick in place. Right forearm g24 and right hand g22. No signs of infiltration. On P200 mattress. On seizure precautions. Head of bed kept elevated. Bed locked and in low position. Call light within reach. Bed alarm on. Will continue to monitor.
--- NOTE | 2019-05-24 07:10 | General Progress Note ---
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 - Anemia with OB (-) stools - Resp failure, s/p Trach - OBS, vegetative obtunded unresponsive state, bedbound with contracted extremities - h/o minor GJ tube site irritation - poor Prognosis Recommendations - No plans for immune suppression at this time (risk benefit ratio in favor of holding off Rx) - abx per ID - PPI daily - Cristian BID - antibiotic ointment to GJT site PRN - aspiration precautions - elevate HOB - Vital AF 1.2 - transfuse to keep Hg > 7 - J tube feeds - G tube ---> LIS - check ESR --> elevated - further evaluation for autoimmune hepatitis (anti DNA) - DS DNA neg, SS DNA pending Subjective ROS Limited/Unobtainable: No Allergies: Coded Allergies: CODEINE (Verified Allergy, Unknown, HIVES, 09/15/09) Objective Last 24 Hour Vital Signs Date Time Temp Pulse Resp B/P (MAP) Pulse Ox O2 Delivery O2 Flow Rate FiO2 05/24/19 06:00 81 22 148/63 (91) 100 05/24/19 05:00 79 21 148/64 (92) 100 05/24/19 04:00 98.8 97 25 127/113 (118) 97 05/24/19 04:00 5.0 28 05/24/19 04:00 T-piece 5.0 T-piece 5.0 T-piece 5.0 05/24/19 04:00 92 05/24/19 03:10 80 23 100 T-Piece 5.0 28 05/24/19 03:00 79 25 174/132 (146) 100 05/24/19 03:00 80 23 100 T-Piece 5.0 28 05/24/19 02:00 78 23 141/62 (88) 100 05/24/19 01:02 99 T-Piece 5.0 28 05/24/19 01:00 76 22 124/52 (76) 99 2/23/20 00:00 80 05/24/19 00:00 97.9 77 22 138/58 (84) 99 05/24/19 00:00 T-piece 5.0 T-piece 5.0 T-piece 5.0 05/23/19 23:24 81 20 100 T-Piece 5.0 28 05/23/19 23:14 79 23 100 T-Piece 5.0 28 05/23/19 23:00 75 21 126/52 (76) 100 05/23/19 22:00 87 19 150/69 (96) 100 05/23/19 21:49 80 22 100 T-Piece 5.0 28 05/23/19 21:39 83 24 100 T-Piece 5.0 28 05/23/19 21:10 82 145/62 05/23/19 21:00 81 21 145/62 (89) 100 05/23/19 20:00 98.4 79 20 126/56 (79) 100 05/23/19 20:00 5.0 28 05/23/19 20:00 T-piece 5.0 T-piece 5.0 T-piece 5.0 05/23/19 20:00 81 05/23/19 19:00 84 21 153/65 (94) 100 05/23/19 18:57 83 21 100 T-Piece 5.0 28 05/23/19 18:47 83 17 100 T-Piece 5.0 28 05/23/19 18:47 100 T-Piece 5.0 28 05/23/19 18:00 83 23 148/61 (90) 100 05/23/19 17:00 98.5 84 21 148/66 (93) 98 05/23/19 16:00 86 05/23/19 16:00 84 22 142/62 (88) 99 05/23/19 16:00 T-piece 5.0 T-piece 5.0 T-piece 5.0 05/23/19 16:00 5.0 28 05/23/19 15:00 92 24 119/53 (75) 100 05/23/19 14:35 86 20 100 T-Piece 5.0 28 87 23 99 05/23/19 14:00 93 23 153/68 (96) 98 05/23/19 13:32 93 130/62 05/23/19 13:00 93 24 130/62 (84) 98 05/23/19 12:42 97 T-Piece 5.0 28 05/23/19 12:00 5.0 28 05/23/19 12:00 93 05/23/19 12:00 98.2 95 23 144/65 (91) 97 05/23/19 12:00 T-piece 5.0 T-piece 5.0 T-piece 5.0 05/23/19 11:00 95 25 167/80 (109) 100 05/23/19 10:57 93 26 100 T-Piece 5.0 28 100 25 100 05/23/19 10:00 93 25 147/68 (94) 100 05/23/19 09:45 96 21 100 T-Piece 5.0 28 97 23 99 05/23/19 09:45 99 T-Piece 5.0 28 05/23/19 09:00 97 23 166/70 (102) 99 05/23/19 08:00 5.0 28 05/23/19 08:00 98.2 98 23 148/67 (94) 99 05/23/19 08:00 94 05/23/19 08:00 T-piece 5.0 T-piece 5.0 T-piece 5.0 Intake and Output 05/23/19 05/24/19 19:00 07:00 Intake Total 1670 ml 1410 ml Output Total 775 ml 750 ml Balance 895 ml 660 ml Free Water 300 ml 300 ml IV Total 200 ml Tube Feeding 720 ml 660 ml Other 450 ml 450 ml Output Urine Total 600 ml 600 ml Gastric Drainage Total 150 ml Other 175 ml # Bowel Movements 1 Height (Feet): 5 Height (Inches): 3.00 Weight (Pounds): 135 General Appearance: lethargic EENT: normal ENT inspection Neck: supple Cardiovascular: normal rate Respiratory/Chest: decreased breath sounds Abdomen: normal bowel sounds, non tender, soft Extremities: non-tender Gary Guzman MD May 24, 2019 07:10
--- NOTE | 2019-05-24 07:24 | NUR ---
HAND-OFF: Report given to JEANNINE Haynes.
--- NOTE | 2019-05-24 07:25 | NUR ---
NURSE NOTES: Report received from JEANNINE Kraus. Patient is obtunded, opens eyes spontaneously but doesn't track. Patient has a t-piece Shiley 6 xlt on 28% O2, saturating at 100%. Frequent suctioning needed. HR 80 on brick setter. On Vital AF feeding at 60ml/hr via J-tube, flushed with 150ml H2O. G-tube flushed with 100ml H2O on low intermittent suctioning. Purewick in place and suctioning/draining well. IV on the right forearm 24g and right hand 22g patent, asymptomatic and flushing well; running TKO. On P200 mattress. Maintained on seizure precautions. Safety measures in place; bed low locked and alarm is on. Will continue plan of care.
[2019-05-24] MEDS: Pantoprazole Inj IVP SCH (08:06)
[2019-05-24] MEDS: levETIRAcetam 500mg/5ml Liquid GT SCH ×2 (08:06→20:58)
[2019-05-24] MEDS: Carvedilol 6.25mg Tab GT SCH ×2 (08:06→20:58)
[2019-05-24] MEDS: Heparin 5000 units/ml inj SUBQ SCH ×2 (08:07→20:59)
--- NOTE | 2019-05-24 08:59 | Infectious Diseases Prog Note ---
Assessment/Plan Assessment/Plan A 1.Pseudomonas & Providencia pneumonia 2.Chronic respiratory failure 3. hypertension 4. CVA 5. dementia 6. sacral decubitus ulcer 7. rectal VRE colonization 8. Anemia 9. Proteus UTI treated 10. Acute renal failure 11. Sepsis with Klebsiella ( KPC), treated 12.delano Parapsilosis sepsis P 1 continue Fluconazole X 4 days 2.continue Amikacin inhaler X 3days Subjective ROS Limited/Unobtainable: Yes Constitutional: Denies: fever Allergies: Coded Allergies: CODEINE (Verified Allergy, Unknown, HIVES, 09/15/09) Objective Vital Signs Last 24 Hour Vital Signs Date Time Temp Pulse Resp B/P (MAP) Pulse Ox O2 Delivery O2 Flow Rate FiO2 05/24/19 08:06 79 155/69 05/24/19 08:00 5.0 28 05/24/19 08:00 T-piece 5.0 T-piece 5.0 T-piece 5.0 05/24/19 08:00 98.8 79 22 155/69 (97) 100 05/24/19 07:47 100 T-Piece 5.0 28 05/24/19 07:47 82 21 100 T-Piece 6.0 28 05/24/19 07:45 84 22 100 T-Piece 5.0 28 81 22 100 05/24/19 07:00 80 22 168/77 (107) 100 05/24/19 06:00 81 22 148/63 (91) 100 05/24/19 05:00 79 21 148/64 (92) 100 05/24/19 04:00 98.8 97 25 127/113 (118) 97 05/24/19 04:00 5.0 28 05/24/19 04:00 T-piece 5.0 T-piece 5.0 T-piece 5.0 05/24/19 04:00 92 05/24/19 03:10 80 23 100 T-Piece 5.0 28 05/24/19 03:00 79 25 174/132 (146) 100 05/24/19 03:00 80 23 100 T-Piece 5.0 28 05/24/19 02:00 78 23 141/62 (88) 100 05/24/19 01:02 99 T-Piece 5.0 28 05/24/19 01:00 76 22 124/52 (76) 99 05/24/19 00:00 80 05/24/19 00:00 97.9 77 22 138/58 (84) 99 05/24/19 00:00 T-piece 5.0 T-piece 5.0 T-piece 5.0 05/23/19 23:24 81 20 100 T-Piece 5.0 28 05/23/19 23:14 79 23 100 T-Piece 5.0 28 05/23/19 23:00 75 21 126/52 (76) 100 05/23/19 22:00 87 19 150/69 (96) 100 05/23/19 21:49 80 22 100 T-Piece 5.0 28 05/23/19 21:39 83 24 100 T-Piece 5.0 28 05/23/19 21:10 82 145/62 05/23/19 21:00 81 21 145/62 (89) 100 05/23/19 20:00 98.4 79 20 126/56 (79) 100 05/23/19 20:00 5.0 28 05/23/19 20:00 T-piece 5.0 T-piece 5.0 T-piece 5.0 05/23/19 20:00 81 05/23/19 19:00 84 21 153/65 (94) 100 05/23/19 18:57 83 21 100 T-Piece 5.0 28 05/23/19 18:47 83 17 100 T-Piece 5.0 28 05/23/19 18:47 100 T-Piece 5.0 28 05/23/19 18:00 83 23 148/61 (90) 100 05/23/19 17:00 98.5 84 21 148/66 (93) 98 05/23/19 16:00 86 05/23/19 16:00 84 22 142/62 (88) 99 05/23/19 16:00 T-piece 5.0 T-piece 5.0 T-piece 5.0 05/23/19 16:00 5.0 28 05/23/19 15:00 92 24 119/53 (75) 100 05/23/19 14:35 86 20 100 T-Piece 5.0 28 87 23 99 05/23/19 14:00 93 23 153/68 (96) 98 05/23/19 13:32 93 130/62 05/23/19 13:00 93 24 130/62 (84) 98 05/23/19 12:42 97 T-Piece 5.0 28 05/23/19 12:00 5.0 28 05/23/19 12:00 93 05/23/19 12:00 98.2 95 23 144/65 (91) 97 05/23/19 12:00 T-piece 5.0 T-piece 5.0 T-piece 5.0 05/23/19 11:00 95 25 167/80 (109) 100 05/23/19 10:57 93 26 100 T-Piece 5.0 28 100 25 100 05/23/19 10:00 93 25 147/68 (94) 100 05/23/19 09:45 96 21 100 T-Piece 5.0 28 97 23 99 05/23/19 09:45 99 T-Piece 5.0 28 05/23/19 09:00 97 23 166/70 (102) 99 Height (Feet): 5 Height (Inches): 3.00 Weight (Pounds): 135 General Appearance: no acute distress HEENT: mucous membranes moist, status post trach Respiratory/Chest: lungs clear, other - on T bar Cardiovascular: normal rate Abdomen: soft, non tender, other - GJ tube Extremities: no edema Neurologic/Psychiatric: aphasia Current Medications Medications (Trade) Dose Ordered Sig/Maicol Route PRN Reason Start Time Stop Time Status Last Admin Dose Admin Acetaminophen (Tylenol) 650 mg Q4H PRN RECTAL T>100.5 / Mild Pain 05/07/19 09:45 06/06/19 09:44 05/07/19 10:13 Albuterol/ Ipratropium (Albuterol/ Ipratropium) 3 ml Q4HRT HHN 05/21/19 23:00 05/26/19 22:59 05/24/19 07:45 Amikacin Sulfate (Amikin) 500 mg Q12HRT@1000,2200 INH 05/21/19 11:00 05/28/19 10:59 05/23/19 21:39 Atropine Sulfate (Atropine Opth Adriana) 1 drop Q6HR SL 05/11/19 00:00 06/10/19 08:59 05/24/19 05:14 Carvedilol (Coreg) 6.25 mg EVERY 12 HOURS GT 05/23/19 21:00 06/22/19 20:59 05/24/19 08:06 Fluconazole/ Sodium Chloride 200 ml @ 100 mls/hr Q24H IV 05/18/19 12:00 05/28/19 13:00 05/23/19 11:56 Heparin Sodium (Porcine) (Heparin 5000 units/ml) 5,000 units EVERY 12 HOURS SUBQ 05/01/19 21:00 05/31/19 20:59 05/24/19 08:07 Hydralazine HCl (Apresoline) 10 mg Q4H PRN IV For High Blood Pressure 05/11/19 05:45 06/10/19 05:44 05/12/19 00:08 Levetiracetam (Keppra) 500 mg Q12HR GT 05/01/19 21:00 05/28/19 08:59 05/24/19 08:06 Pantoprazole (Protonix) 40 mg DAILY IVP 05/15/19 18:15 06/14/19 18:14 05/24/19 08:06 Chauncey Liriano MD May 24, 2019 08:59
[2019-05-24] MEDS: Amikacin for Inhalation 2ML INH SCH ×2 (09:04→21:40)
--- NOTE | 2019-05-24 10:00 | NUR ---
NURSE NOTES: Pt cleaned and repositioned. Suctioned and oral care completed. Pt is resting comfortably in bed.
--- NOTE | 2019-05-24 10:48 | Nephrology Progress Note ---
Assessment/Plan Problem List: (1) Acute renal failure (ARF) Assessment: Cr stable (2) Chronic respiratory failure (3) Anemia (4) Sepsis Assessment Acute renal failure Respiratory failure - Trach Low Mag- Low k , Low Na Anemia UTI / Sepsis Proteinuria / HypoAlbuminemia high Trigs Sz decubs bed bound DNR Plan add cardiazem for bp Transfused 05/09 has JT bolus Albumin as needed K and Mag and Phos supplement as needed Hydrate as needed Urine studies avoid Nephrotoxics mag K Phos supplements as needed monitor renal parameters Subjective ROS Limited/Unobtainable: No Constitutional: Reports: malaise Objective Objective Last 24 Hour Vital Signs Date Time Temp Pulse Resp B/P (MAP) Pulse Ox O2 Delivery O2 Flow Rate FiO2 05/24/19 10:00 75 22 135/54 (81) 100 05/24/19 09:04 76 22 100 T-Piece 5.0 28 76 20 100 05/24/19 09:00 77 22 149/69 (95) 99 05/24/19 08:06 79 155/69 05/24/19 08:00 5.0 28 05/24/19 08:00 T-piece 5.0 T-piece 5.0 T-piece 5.0 05/24/19 08:00 98.8 79 22 155/69 (97) 100 05/24/19 07:47 100 T-Piece 5.0 28 05/24/19 07:47 82 21 100 T-Piece 6.0 28 05/24/19 07:45 84 22 100 T-Piece 5.0 28 81 22 100 05/24/19 07:00 80 22 168/77 (107) 100 05/24/19 06:00 81 22 148/63 (91) 100 05/24/19 05:00 79 21 148/64 (92) 100 05/24/19 04:00 98.8 97 25 127/113 (118) 97 05/24/19 04:00 5.0 28 05/24/19 04:00 T-piece 5.0 T-piece 5.0 T-piece 5.0 05/24/19 04:00 92 05/24/19 03:10 80 23 100 T-Piece 5.0 28 05/24/19 03:00 79 25 174/132 (146) 100 05/24/19 03:00 80 23 100 T-Piece 5.0 28 05/24/19 02:00 78 23 141/62 (88) 100 05/24/19 01:02 99 T-Piece 5.0 28 05/24/19 01:00 76 22 124/52 (76) 99 05/24/19 00:00 80 05/24/19 00:00 97.9 77 22 138/58 (84) 99 05/24/19 00:00 T-piece 5.0 T-piece 5.0 T-piece 5.0 05/23/19 23:24 81 20 100 T-Piece 5.0 28 05/23/19 23:14 79 23 100 T-Piece 5.0 28 05/23/19 23:00 75 21 126/52 (76) 100 05/23/19 22:00 87 19 150/69 (96) 100 05/23/19 21:49 80 22 100 T-Piece 5.0 28 05/23/19 21:39 83 24 100 T-Piece 5.0 28 05/23/19 21:10 82 145/62 05/23/19 21:00 81 21 145/62 (89) 100 05/23/19 20:00 98.4 79 20 126/56 (79) 100 05/23/19 20:00 5.0 28 05/23/19 20:00 T-piece 5.0 T-piece 5.0 T-piece 5.0 05/23/19 20:00 81 05/23/19 19:00 84 21 153/65 (94) 100 05/23/19 18:57 83 21 100 T-Piece 5.0 28 05/23/19 18:47 83 17 100 T-Piece 5.0 28 05/23/19 18:47 100 T-Piece 5.0 28 05/23/19 18:00 83 23 148/61 (90) 100 05/23/19 17:00 98.5 84 21 148/66 (93) 98 05/23/19 16:00 86 05/23/19 16:00 84 22 142/62 (88) 99 05/23/19 16:00 T-piece 5.0 T-piece 5.0 T-piece 5.0 05/23/19 16:00 5.0 28 05/23/19 15:00 92 24 119/53 (75) 100 05/23/19 14:35 86 20 100 T-Piece 5.0 28 87 23 99 05/23/19 14:00 93 23 153/68 (96) 98 05/23/19 13:32 93 130/62 05/23/19 13:00 93 24 130/62 (84) 98 05/23/19 12:42 97 T-Piece 5.0 28 05/23/19 12:00 5.0 28 05/23/19 12:00 93 05/23/19 12:00 98.2 95 23 144/65 (91) 97 05/23/19 12:00 T-piece 5.0 T-piece 5.0 T-piece 5.0 05/23/19 11:00 95 25 167/80 (109) 100 05/23/19 10:57 93 26 100 T-Piece 5.0 28 100 25 100 Intake and Output 05/23/19 05/24/19 19:00 07:00 Intake Total 1670 ml 1470 ml Output Total 775 ml 750 ml Balance 895 ml 720 ml Free Water 300 ml 300 ml IV Total 200 ml Tube Feeding 720 ml 720 ml Other 450 ml 450 ml Output Urine Total 600 ml 600 ml Gastric Drainage Total 150 ml Other 175 ml # Bowel Movements 1 Height (Feet): 5 Height (Inches): 3.00 Weight (Pounds): 135 General Appearance: no apparent distress EENT: other - trach to O2 Respiratory/Chest: decreased breath sounds Abdomen: soft Objective no change Eric Cortez MD May 24, 2019 10:48
--- NOTE | 2019-05-24 12:00 | NUR ---
NURSE NOTES: Patient is observed sleeping comfortably. No changes in condition. Frequent suctioning provided. Will continue to monitor.
--- NOTE | 2019-05-24 13:06 | General Progress Note ---
Assessment/Plan Problem List: (1) Seizure ICD Codes: R56.9 - Unspecified convulsions SNOMED: 40477211 (2) Anemia ICD Codes: D64.9 - Anemia, unspecified SNOMED: 851738474 Qualifiers: Qualified Codes: D64.9 - Anemia, unspecified (3) Sepsis ICD Codes: A41.9 - Sepsis, unspecified organism SNOMED: 31152305, 488686047 Qualifiers: Qualified Codes: A41.9 - Sepsis, unspecified organism (4) Respiratory failure with hypoxia ICD Codes: J96.91 - Respiratory failure, unspecified with hypoxia SNOMED: 17865396852768544 Qualifiers: Qualified Codes: J96.21 - Acute and chronic respiratory failure with hypoxia (5) HCAP (healthcare-associated pneumonia) ICD Codes: J18.9 - Pneumonia, unspecified organism SNOMED: 963341993, 857764681 (6) Sacral decubitus ulcer ICD Codes: L89.159 - Pressure ulcer of sacral region, unspecified stage SNOMED: 708341748 (7) HTN (hypertension) ICD Codes: I10 - Essential (primary) hypertension SNOMED: 04462387 (8) Chronic vegetative state ICD Codes: R40.3 - Persistent vegetative state SNOMED: 65463583 (9) Chronic respiratory failure ICD Codes: J96.10 - Chronic respiratory failure, unspecified whether with hypoxia or hypercapnia SNOMED: 03339564 (10) Limited mobility ICD Codes: Z74.09 - Other reduced mobility SNOMED: 9035432 Status: stable, progressing Assessment/Plan: iv abx per id monitor for bleeding vent as needed resp rx suctioning replace lytes as needed j tube feeds g port to gravity skin care sz rx bowel regime monitor lfts Subjective ROS Limited/Unobtainable: Yes Constitutional: Reports: malaise, weakness HEENT: Reports: no symptoms Cardiovascular: Reports: no symptoms Respiratory: Reports: no symptoms Gastrointestinal/Abdominal: Reports: difficulty swallowing, poor appetite Genitourinary: Reports: no symptoms Neurologic/Psychiatric: Reports: pre-existing deficit, seizure Endocrine: Reports: no symptoms Hematologic/Lymphatic: Reports: anemia Allergies: Coded Allergies: CODEINE (Verified Allergy, Unknown, HIVES, 09/15/09) All Systems: reviewed and negative except above Subjective no events. minimal congestion. no fever or chills. tolerating feeds. labs noted. on iv abx Objective Last 24 Hour Vital Signs Date Time Temp Pulse Resp B/P (MAP) Pulse Ox O2 Delivery O2 Flow Rate FiO2 05/24/19 12:00 5.0 28 05/24/19 12:00 T-piece 5.0 T-piece 5.0 T-piece 5.0 05/24/19 12:00 98.4 76 22 128/58 (81) 100 05/24/19 11:23 75 05/24/19 11:00 76 22 130/52 (78) 100 05/24/19 10:49 86 21 100 T-Piece 5.0 28 80 22 100 05/24/19 10:00 75 22 135/54 (81) 100 05/24/19 09:04 76 22 100 T-Piece 5.0 28 76 20 100 05/24/19 09:00 77 22 149/69 (95) 99 05/24/19 08:06 79 155/69 05/24/19 08:00 5.0 28 05/24/19 08:00 T-piece 5.0 T-piece 5.0 T-piece 5.0 05/24/19 08:00 98.8 79 22 155/69 (97) 100 05/24/19 07:58 79 05/24/19 07:47 100 T-Piece 5.0 28 05/24/19 07:47 82 21 100 T-Piece 6.0 28 05/24/19 07:45 84 22 100 T-Piece 5.0 28 81 22 100 05/24/19 07:00 80 22 168/77 (107) 100 05/24/19 06:00 81 22 148/63 (91) 100 05/24/19 05:00 79 21 148/64 (92) 100 05/24/19 04:00 98.8 97 25 127/113 (118) 97 05/24/19 04:00 5.0 28 05/24/19 04:00 T-piece 5.0 T-piece 5.0 T-piece 5.0 05/24/19 04:00 92 05/24/19 03:10 80 23 100 T-Piece 5.0 28 05/24/19 03:00 79 25 174/132 (146) 100 05/24/19 03:00 80 23 100 T-Piece 5.0 28 05/24/19 02:00 78 23 141/62 (88) 100 05/24/19 01:02 99 T-Piece 5.0 28 05/24/19 01:00 76 22 124/52 (76) 99 05/24/19 00:00 80 05/24/19 00:00 97.9 77 22 138/58 (84) 99 05/24/19 00:00 T-piece 5.0 T-piece 5.0 T-piece 5.0 05/23/19 23:24 81 20 100 T-Piece 5.0 28 05/23/19 23:14 79 23 100 T-Piece 5.0 28 05/23/19 23:00 75 21 126/52 (76) 100 05/23/19 22:00 87 19 150/69 (96) 100 05/23/19 21:49 80 22 100 T-Piece 5.0 28 05/23/19 21:39 83 24 100 T-Piece 5.0 28 05/23/19 21:10 82 145/62 05/23/19 21:00 81 21 145/62 (89) 100 05/23/19 20:00 98.4 79 20 126/56 (79) 100 05/23/19 20:00 5.0 28 05/23/19 20:00 T-piece 5.0 T-piece 5.0 T-piece 5.0 05/23/19 20:00 81 05/23/19 19:00 84 21 153/65 (94) 100 05/23/19 18:57 83 21 100 T-Piece 5.0 28 05/23/19 18:47 83 17 100 T-Piece 5.0 28 05/23/19 18:47 100 T-Piece 5.0 28 05/23/19 18:00 83 23 148/61 (90) 100 05/23/19 17:00 98.5 84 21 148/66 (93) 98 05/23/19 16:00 86 05/23/19 16:00 84 22 142/62 (88) 99 05/23/19 16:00 T-piece 5.0 T-piece 5.0 T-piece 5.0 05/23/19 16:00 5.0 28 05/23/19 15:00 92 24 119/53 (75) 100 05/23/19 14:35 86 20 100 T-Piece 5.0 28 87 23 99 05/23/19 14:00 93 23 153/68 (96) 98 05/23/19 13:32 93 130/62 Intake and Output 05/23/19 05/24/19 19:00 07:00 Intake Total 1670 ml 1470 ml Output Total 775 ml 750 ml Balance 895 ml 720 ml Free Water 300 ml 300 ml IV Total 200 ml Tube Feeding 720 ml 720 ml Other 450 ml 450 ml Output Urine Total 600 ml 600 ml Gastric Drainage Total 150 ml Other 175 ml # Bowel Movements 1 Height (Feet): 5 Height (Inches): 3.00 Weight (Pounds): 135 Objective General Appearance: WD/WN, confused. on trach collar Neck: supple Cardiovascular: normal rate, regular rhythm Respiratory/Chest: chest wall non-tender, rhonchi - bilaterally(minimal) Abdomen: normal bowel sounds, non tender, soft, no organomegaly Edema: no edema noted Arm (L), no edema noted Arm (R), no edema noted Leg (L), no edema noted Leg (R), no edema noted Pedal (L), no edema noted Pedal (R), no edema noted Generalized Neurologic: disoriented, unresponsive, aphasia Irvin Beltrán MD May 24, 2019 13:06
[2019-05-24] MEDS: Magnesium Oxide 400mg tab JT SCH ×2 (13:12→17:54)
--- NOTE | 2019-05-24 14:07 | NUR ---
NURSE NOTES: Frequent suctioning provided, oral care done. Turned and repositioned. No distress noted.
--- NOTE | 2019-05-24 15:08 | Pulmonolgy Critical Care Note ---
Critical Care - Asmt/Plan Assessment/Plan: Pulmonary CCM Progress Note Impression: Fungemia KPC+ ID following history of Pneumonia Trach, G tube, Hypertension, Cardiac disease, Dementia, Previous CVA, Seizure disorder, Respiratory failure with hypoxia Anemia, Sacral ulcer renal cyst chronic pulmonary congestion Plan antifungals/ID antimicrobials/ID monitor for change; care reviewed recent cultures reviewed monitor imaging for change Vent PRN but DNR monitor labs for change maintain reflux aspiration elevate head and monitor secretions monitor labs monitor vitals; and adjust meds; cards following; still tachy DNR. No CPR. ICU care reviewed meds noted and updated; neb therapy off load as able prognosis very poor nutrition/fees/ dietary as is; monitor residuals skin care management reviewed difficulty with placement all changes noted and discussed chronic management as able medications/laboratory data/nursing notes/ICU care reviewed in detail note reviewed and edited care discussed with RN and RT time spent x 45 minutes Subjective ROS Limited/Unobtainable: Yes Allergies: Coded Allergies: CODEINE (Verified Allergy, Unknown, HIVES, 09/15/09) Subjective overnight events noted; poor LOC on isolation; remains off vent for now Fungemia; noted [facility] ICU care issues discussed requires suctioning for ongoing congestion Objective Vital Signs Noted Objective WDWN NAD contracted off vent reduced breath sounds bilaterally with some rhonchi; no wheeze [id number] without MRG NABS nontender no HSM no CC minimal nonfocal nonverbal trach and gt reviewed and edited Laboratory Tests Noted Critical Care - Objective Last 24 Hour Vital Signs Date Time Temp Pulse Resp B/P (MAP) Pulse Ox O2 Delivery O2 Flow Rate FiO2 05/24/19 14:44 75 23 100 T-Piece 5.0 28 74 22 100 05/24/19 14:00 74 22 124/55 (78) 100 05/24/19 13:09 100 T-Piece 5.0 28 05/24/19 13:00 75 22 120/55 (76) 99 05/24/19 12:00 5.0 28 05/24/19 12:00 T-piece 5.0 T-piece 5.0 T-piece 5.0 05/24/19 12:00 98.4 76 22 128/58 (81) 100 05/24/19 11:23 75 05/24/19 11:00 76 22 130/52 (78) 100 05/24/19 10:49 86 21 100 T-Piece 5.0 28 80 22 100 05/24/19 10:00 75 22 135/54 (81) 100 05/24/19 09:04 76 22 100 T-Piece 5.0 28 76 20 100 05/24/19 09:00 77 22 149/69 (95) 99 05/24/19 08:06 79 155/69 05/24/19 08:00 5.0 28 05/24/19 08:00 T-piece 5.0 T-piece 5.0 T-piece 5.0 05/24/19 08:00 98.8 79 22 155/69 (97) 100 05/24/19 07:58 79 05/24/19 07:47 100 T-Piece 5.0 28 05/24/19 07:47 82 21 100 T-Piece 6.0 28 05/24/19 07:45 84 22 100 T-Piece 5.0 28 81 22 100 05/24/19 07:00 80 22 168/77 (107) 100 05/24/19 06:00 81 22 148/63 (91) 100 05/24/19 05:00 79 21 148/64 (92) 100 05/24/19 04:00 98.8 97 25 127/113 (118) 97 05/24/19 04:00 5.0 28 05/24/19 04:00 T-piece 5.0 T-piece 5.0 T-piece 5.0 05/24/19 04:00 92 05/24/19 03:10 80 23 100 T-Piece 5.0 28 05/24/19 03:00 79 25 174/132 (146) 100 05/24/19 03:00 80 23 100 T-Piece 5.0 28 05/24/19 02:00 78 23 141/62 (88) 100 05/24/19 01:02 99 T-Piece 5.0 28 05/24/19 01:00 76 22 124/52 (76) 99 05/24/19 00:00 80 05/24/19 00:00 97.9 77 22 138/58 (84) 99 05/24/19 00:00 T-piece 5.0 T-piece 5.0 T-piece 5.0 05/23/19 23:24 81 20 100 T-Piece 5.0 28 05/23/19 23:14 79 23 100 T-Piece 5.0 28 05/23/19 23:00 75 21 126/52 (76) 100 05/23/19 22:00 87 19 150/69 (96) 100 05/23/19 21:49 80 22 100 T-Piece 5.0 28 05/23/19 21:39 83 24 100 T-Piece 5.0 28 05/23/19 21:10 82 145/62 05/23/19 21:00 81 21 145/62 (89) 100 05/23/19 20:00 98.4 79 20 126/56 (79) 100 05/23/19 20:00 5.0 28 05/23/19 20:00 T-piece 5.0 T-piece 5.0 T-piece 5.0 05/23/19 20:00 81 05/23/19 19:00 84 21 153/65 (94) 100 05/23/19 18:57 83 21 100 T-Piece 5.0 28 05/23/19 18:47 83 17 100 T-Piece 5.0 28 05/23/19 18:47 100 T-Piece 5.0 28 05/23/19 18:00 83 23 148/61 (90) 100 05/23/19 17:00 98.5 84 21 148/66 (93) 98 05/23/19 16:00 86 05/23/19 16:00 84 22 142/62 (88) 99 05/23/19 16:00 T-piece 5.0 T-piece 5.0 T-piece 5.0 05/23/19 16:00 5.0 28 Accucheck: 110 Critical Care - Subjective ROS Limited/Unobtainable: No FI02: 28 Vent Support Mode: CPAP Vent Tidal Volume: 450 Sputum Amount: Small PEEP: 5.0 PIP: 19 Tube Feeding Amount: 60 I&O: Intake and Output 05/23/19 05/24/19 19:00 07:00 Intake Total 1670 ml 1470 ml Output Total 775 ml 750 ml Balance 895 ml 720 ml Free Water 300 ml 300 ml IV Total 200 ml Tube Feeding 720 ml 720 ml Other 450 ml 450 ml Output Urine Total 600 ml 600 ml Gastric Drainage Total 150 ml Other 175 ml # Bowel Movements 1 ET-Tube: 6.0 Bg Moffett MD May 24, 2019 15:08
--- NOTE | 2019-05-24 16:10 | NUR ---
NURSE NOTES: Flushed [employer] Tubes. Pt resting comfortable. Suctioned and repositioned.
[2019-05-24] MEDS ORDERED: NS 275ml ONE (16:36)
[2019-05-24] MEDS ORDERED: NS Irrig 1000ml ONE (16:36)
--- NOTE | 2019-05-24 17:58 | NUR ---
NURSE NOTES: Bed bath given, linens changes, oral care done, wound dressings changed, suction provided, turned and repositioned. Safety measures in place. Patient appears comfortable. No distress noted
--- NOTE | 2019-05-24 19:13 | NUR ---
HAND-OFF: Report given to JEANNINE Britt.
--- NOTE | 2019-05-24 19:30 | NUR ---
NURSE NOTES: Received report from JEANNINE Haynes. Pt is sleeping on the bed and obtunded. Pt is nonverbal. On surveillance system monitor with SR. On T-piece; shiley #6, 28% FiO2, O2 5L and SaO2 100% noted. Given tracheal and oral suction. Provided oral care. On J-tube feeding with vital 1.2 @ 60cc/hr and no residual noted. on G-tubed site with low intermittent suction. Keep HOB. Heels and sacrum dressed in Optifoam for skin protection, pt on p200 mattress. IV site intact and no sign of infiltration noted. Purewicks in place. Placed fall and seizure precaution. Will continue to care plan.
--- NOTE | 2019-05-24 20:00 | NUR ---
NURSE NOTES: pt is resting on the bed and obtunded. Family; daughter stays at bedside. Changed position. Given oral tracheal suction. provided oral care. Placed fall and seizure precaution. Will continue to care plan.
--- NOTE | 2019-05-24 22:00 | NUR ---
NURSE NOTES: Repositioned. Suction was done. Will continue to monitor any change of condition.
--- NOTE | 2019-05-24 23:57 | NUR ---
HAND-OFF: Report given to JEANNINE Nicole. Pt is sleeping on the bed and no sign of acute distress noted.
[2019-05-25] VITALS (24 sets, daily range): BP systolic 104–157; BP diastolic 45–66
--- NOTE | 2019-05-25 | NUR ---
NURSE NOTES: Endorsement received from JEANNINE Britt for continuity of care. Patient asleep. Opens eyes, does not track. Shiley XLT receiving 28%, 5 liters on cool aerosol. No shortness of breath. With GJ tube. G tube connected to low intermittent suction. Noted with light yellowish output. J tube receiving Vital 1.2 at 60ml/hr. Purewick in place. Right forearm g24 and right hand g22. No signs of infiltration. On P200 mattress. On seizure precautions. Head of bed kept elevated. Bed locked and in low position. Call light within reach. Bed alarm on. Will continue to monitor.
--- NOTE | 2019-05-25 02:00 | NUR ---
NURSE NOTES: Secretions suctioned. Patient appears comfortable. No signs of pain or discomfort.
[2019-05-25] MEDS: Albuterol/Ipratropium 3ml neb HHN SCH ×6 (03:10→23:28)
--- NOTE | 2019-05-25 05:00 | NUR ---
NURSE NOTES: Bed bath, oral care, change of linens done.
[2019-05-25 06:13] LABS: BASOPHILS % (AUTO) 1.2 % (0.0-2.0); HEMATOCRIT 24.9 % (37.0-47.0); HEMOGLOBIN 8.3 G/DL (12.0-16.0); LYMPHOCYTES % (AUTO) 30.9 % (20.0-45.0); MEAN CORPUSCULAR VOLUME 88 FL (80-99); MONOCYTES % (AUTO) 5.7 % (1.0-10.0); NEUTROPHILS % (AUTO) 58.1 % (45.0-75.0); PLATELET COUNT 343 K/UL (150-450); RED BLOOD COUNT 2.85 M/UL (4.20-5.40); WHITE BLOOD COUNT 10.3 K/UL (4.8-10.8)
[2019-05-25 06:51] LABS: ALANINE AMINOTRANSFERASE 51 U/L (12-78); ALBUMIN 2.5 G/DL (3.4-5.0); ALBUMIN/GLOBULIN RATIO 0.4 (1.0-2.7); ALKALINE PHOSPHATASE 178 U/L (46-116); ANION GAP 8 mmol/L (5-15); ASPARTATE AMINO TRANSFERASE 33 U/L (15-37); BILIRUBIN,TOTAL 0.2 MG/DL (0.2-1.0); BLOOD UREA NITROGEN 41 mg/dL (7-18); CALCIUM 9.3 MG/DL (8.5-10.1); CARBON DIOXIDE 29 MMOL/L (21-32); CHLORIDE 103 MMOL/L (98-107); CREATININE 0.9 MG/DL (0.55-1.30); PHOSPHORUS 3.5 MG/DL (2.5-4.9); POTASSIUM 4.1 MMOL/L (3.5-5.1); SODIUM 140 MMOL/L (136-145)
--- NOTE | 2019-05-25 07:09 | NUR ---
HAND-OFF: Report given to Radha Alejandro RN.
--- NOTE | 2019-05-25 07:10 | NUR ---
NURSE NOTES: Report received from JEANNINE Kraus. Pt is sleeping and able to respond to tactile stimuli. Non-verbal and not able to follow commands. Opens eyes spontaneously. 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 Pt has T-piece with cool aerosol 28%, 5L. O2 sat 100%. Small amount of white thin secretion from T-piece and mouth. Pt coughs at times. GJ tube in place. Via J tube, pt is receiving Vital AF 1.2 at 60cc/hr. G tube is connected to low intermittent suction, draining yellow drainage. Pure-wick in place draining yellow urine via suction. IV to right FA G24 and right hand G22 patent and asymptomatic. Bed in lowest position. Side rails up x3. Will resume plan of care.
--- NOTE | 2019-05-25 07:53 | General Progress Note ---
Assessment/Plan Problem List: (1) Seizure ICD Codes: R56.9 - Unspecified convulsions SNOMED: 34035562 (2) Anemia ICD Codes: D64.9 - Anemia, unspecified SNOMED: 007485551 Qualifiers: Qualified Codes: D64.9 - Anemia, unspecified (3) Sepsis ICD Codes: A41.9 - Sepsis, unspecified organism SNOMED: 41951723, 929029265 Qualifiers: Qualified Codes: A41.9 - Sepsis, unspecified organism (4) Respiratory failure with hypoxia ICD Codes: J96.91 - Respiratory failure, unspecified with hypoxia SNOMED: 05084619617641025 Qualifiers: Qualified Codes: J96.21 - Acute and chronic respiratory failure with hypoxia (5) HCAP (healthcare-associated pneumonia) ICD Codes: J18.9 - Pneumonia, unspecified organism SNOMED: 988211981, 959342757 (6) Sacral decubitus ulcer ICD Codes: L89.159 - Pressure ulcer of sacral region, unspecified stage SNOMED: 454147748 (7) HTN (hypertension) ICD Codes: I10 - Essential (primary) hypertension SNOMED: 49245246 (8) Chronic vegetative state ICD Codes: R40.3 - Persistent vegetative state SNOMED: 78899832 (9) Chronic respiratory failure ICD Codes: J96.10 - Chronic respiratory failure, unspecified whether with hypoxia or hypercapnia SNOMED: 67572247 (10) Limited mobility ICD Codes: Z74.09 - Other reduced mobility SNOMED: 7619869 Status: stable, progressing Assessment/Plan: abx per id monitor for bleeding vent as needed resp rx suctioning replace lytes as needed j tube feeds g port to gravity skin care sz rx bowel regime monitor lfts Subjective ROS Limited/Unobtainable: No Constitutional: Reports: malaise, weakness HEENT: Reports: no symptoms Cardiovascular: Reports: no symptoms Respiratory: Reports: cough, sputum Gastrointestinal/Abdominal: Reports: difficulty swallowing Genitourinary: Reports: no symptoms Neurologic/Psychiatric: Reports: pre-existing deficit, seizure Endocrine: Reports: no symptoms Hematologic/Lymphatic: Reports: no symptoms Allergies: Coded Allergies: CODEINE (Verified Allergy, Unknown, HIVES, 09/15/09) All Systems: reviewed and negative except above Subjective no events. minimal congestion. no fever or chills. tolerating feeds. labs noted. Objective Last 24 Hour Vital Signs Date Time Temp Pulse Resp B/P (MAP) Pulse Ox O2 Delivery O2 Flow Rate FiO2 05/25/19 07:18 99 T-Piece 5.0 28 05/25/19 07:18 75 18 100 T-Piece 5.0 28 81 18 99 05/25/19 05:00 73 21 157/58 (91) 100 05/25/19 04:00 98.3 78 18 154/66 (95) 99 05/25/19 04:00 5.0 28 05/25/19 04:00 73 05/25/19 04:00 T-piece 5.0 T-piece 5.0 T-piece 5.0 05/25/19 03:20 73 21 100 T-Piece 5.0 28 05/25/19 03:10 69 20 100 T-Piece 5.0 28 05/25/19 03:00 69 22 132/50 (77) 100 05/25/19 02:00 76 22 141/55 (83) 100 05/25/19 01:05 100 T-Piece 5.0 28 05/25/19 01:00 74 22 137/57 (83) 99 05/25/19 00:00 5.0 28 05/25/19 00:00 98.0 73 20 125/47 (73) 100 05/25/19 00:00 T-piece 5.0 T-piece 5.0 T-piece 5.0 05/24/19 23:31 74 18 100 T-Piece 5.0 28 05/24/19 23:21 76 19 98 T-Piece 5.0 28 05/24/19 23:00 72 21 138/54 (82) 99 05/24/19 22:00 72 23 124/49 (74) 100 05/24/19 21:50 72 20 100 T-Piece 5.0 28 05/24/19 21:40 74 17 100 T-Piece 5.0 28 05/24/19 21:00 77 23 146/57 (86) 100 05/24/19 20:58 77 148/74 05/24/19 20:00 98.2 77 22 148/74 (98) 100 05/24/19 20:00 T-piece 5.0 T-piece 5.0 T-piece 5.0 05/24/19 20:00 76 05/24/19 20:00 5.0 28 05/24/19 19:12 76 22 100 T-Piece 5.0 28 05/24/19 19:02 100 T-Piece 5.0 28 05/24/19 19:02 76 21 100 T-Piece 5.0 28 05/24/19 19:00 76 22 145/67 (93) 100 05/24/19 18:00 78 26 150/68 (95) 100 05/24/19 17:00 85 19 168/86 (113) 100 05/24/19 16:00 98.4 76 23 122/56 (78) 98 05/24/19 16:00 5.0 28 05/24/19 16:00 T-piece 5.0 T-piece 5.0 T-piece 5.0 05/24/19 15:54 75 05/24/19 15:00 75 23 125/54 (77) 100 05/24/19 14:44 75 23 100 T-Piece 5.0 28 74 22 100 05/24/19 14:00 74 22 124/55 (78) 100 05/24/19 13:09 100 T-Piece 5.0 28 05/24/19 13:00 75 22 120/55 (76) 99 05/24/19 12:00 5.0 28 05/24/19 12:00 T-piece 5.0 T-piece 5.0 T-piece 5.0 05/24/19 12:00 98.4 76 22 128/58 (81) 100 05/24/19 11:23 75 05/24/19 11:00 76 22 130/52 (78) 100 05/24/19 10:49 86 21 100 T-Piece 5.0 28 80 22 100 05/24/19 10:00 75 22 135/54 (81) 100 05/24/19 09:04 76 22 100 T-Piece 5.0 28 76 20 100 05/24/19 09:00 77 22 149/69 (95) 99 05/24/19 08:06 79 155/69 05/24/19 08:00 5.0 28 05/24/19 08:00 T-piece 5.0 T-piece 5.0 T-piece 5.0 05/24/19 08:00 98.8 79 22 155/69 (97) 100 05/24/19 07:58 79 Intake and Output 05/24/19 05/25/19 19:00 07:00 Intake Total 1770 ml 1100 ml Output Total 350 ml 300 ml Balance 1420 ml 800 ml Free Water 300 ml 200 ml IV Total 200 ml Tube Feeding 720 ml 600 ml Other 550 ml 300 ml Output Urine Total 300 ml 300 ml Gastric Drainage Total 50 ml # Bowel Movements 1 Laboratory Tests 05/25/19 05:25: White Blood Count 10.3, Red Blood Count 2.85L, Hemoglobin 8.3L, Hematocrit 24.9L , Mean Corpuscular Volume 88, Mean Corpuscular Hemoglobin 29.2, Mean Corpuscular Hemoglobin Concent 33.4, Red Cell Distribution Width 14.0, Platelet Count 343, Mean Platelet Volume 5.0L, Neutrophils (%) (Auto) 58.1, Lymphocytes ( %) (Auto) 30.9, Monocytes (%) (Auto) 5.7, Eosinophils (%) (Auto) 4.0H, Basophils (%) (Auto) 1.2, Sodium Level 140, Potassium Level 4.1, Chloride Level 103, Carbon Dioxide Level 29, Anion Gap 8, Blood Urea Nitrogen 41H, Creatinine 0.9, Estimat Glomerular Filtration Rate > 60, Glucose Level 104, Calcium Level 9.3, Phosphorus Level 3.5, Magnesium Level 1.6L, Total Bilirubin 0.2, Aspartate Amino Transf (AST/SGOT) 33, Alanine Aminotransferase (ALT/SGPT) 51, Alkaline Phosphatase 178H, Total Protein 8.2, Albumin 2.5L, Globulin 5.7, Albumin/ Globulin Ratio 0.4L Height (Feet): 5 Height (Inches): 3.00 Weight (Pounds): 135 Objective General Appearance: WD/WN, confused. on trach collar Neck: supple Cardiovascular: normal rate, regular rhythm Respiratory/Chest: chest wall non-tender, rhonchi - bilaterally(minimal) Abdomen: normal bowel sounds, non tender, soft, no organomegaly Edema: no edema noted Arm (L), no edema noted Arm (R), no edema noted Leg (L), no edema noted Leg (R), no edema noted Pedal (L), no edema noted Pedal (R), no edema noted Generalized Neurologic: disoriented, unresponsive, aphasia Irvin Beltrán MD May 25, 2019 07:53
[2019-05-25] MEDS: levETIRAcetam 500mg/5ml Liquid GT SCH ×2 (08:21→20:12)
[2019-05-25] MEDS: Magnesium Oxide 400mg tab JT SCH ×3 (08:21→17:10)
[2019-05-25] MEDS: Carvedilol 6.25mg Tab GT SCH ×2 (08:22→20:12)
[2019-05-25] MEDS: Pantoprazole Inj IVP SCH (08:22)
[2019-05-25] MEDS: Heparin 5000 units/ml inj SUBQ SCH ×2 (08:23→20:15)
--- NOTE | 2019-05-25 08:23 | Pulmonology Progress Note ---
Assessment/Plan Assessment/Plan Impression: Fungemia [facility]+ history of Pneumonia Trach, G tube, Hypertension, Cardiac disease, Dementia, Previous CVA, Seizure disorder, Respiratory failure with hypoxia Anemia, Sacral ulcer renal cyst chronic pulmonary congestion Plan antifungals antimicrobials ID following for changes overall pulmonary status slightly improved monitor imaging for change and monitor secretions Vent PRN but DNR as per family monitor labs for change and recommend further maintain reflux aspiration and monitor feeds elevate head and monitor secretions monitor labs for change monitor vitals; and adjust meds; cards following; tachycardia resolved DNR. No CPR. ICU care reviewed meds noted and updated; neb therapy off load as able prognosis very poor nutrition/fees/ dietary as is; monitor residuals skin care management reviewed difficulty with placement all changes noted and discussed chronic management as able medications/laboratory data/nursing notes/ICU care reviewed in detail note reviewed and edited care discussed with RN and RT time spent x 38minutes Subjective ROS Limited/Unobtainable: Yes Allergies: Coded Allergies: CODEINE (Verified Allergy, Unknown, HIVES, 09/15/09) Subjective overnight events noted; remains poorly responsive some congestion on isolation; remains off vent for now Fungemia; noted [facility] off vent ICU care issues discussed requires suctioning and has some congestion Objective Last 24 Hour Vital Signs Date Time Temp Pulse Resp B/P (MAP) Pulse Ox O2 Delivery O2 Flow Rate FiO2 05/25/19 08:00 98.2 75 21 157/64 (95) 100 05/25/19 08:00 5.0 28 05/25/19 08:00 T-piece 5.0 T-piece 5.0 T-piece 5.0 05/25/19 07:18 99 T-Piece 5.0 28 05/25/19 07:18 75 18 100 T-Piece 5.0 28 81 18 99 05/25/19 07:00 75 20 157/61 (93) 100 05/25/19 06:57 74 05/25/19 06:00 73 21 156/61 (92) 99 05/25/19 05:00 73 21 157/58 (91) 100 05/25/19 04:00 98.3 78 18 154/66 (95) 99 05/25/19 04:00 5.0 28 05/25/19 04:00 73 05/25/19 04:00 T-piece 5.0 T-piece 5.0 T-piece 5.0 2/24/20 03:20 73 21 100 T-Piece 5.0 28 05/25/19 03:10 69 20 100 T-Piece 5.0 28 05/25/19 03:00 69 22 132/50 (77) 100 05/25/19 02:00 76 22 141/55 (83) 100 05/25/19 01:05 100 T-Piece 5.0 28 05/25/19 01:00 74 22 137/57 (83) 99 05/25/19 00:00 5.0 28 05/25/19 00:00 98.0 73 20 125/47 (73) 100 05/25/19 00:00 T-piece 5.0 T-piece 5.0 T-piece 5.0 05/24/19 23:31 74 18 100 T-Piece 5.0 28 05/24/19 23:21 76 19 98 T-Piece 5.0 28 05/24/19 23:00 72 21 138/54 (82) 99 05/24/19 22:00 72 23 124/49 (74) 100 05/24/19 21:50 72 20 100 T-Piece 5.0 28 05/24/19 21:40 74 17 100 T-Piece 5.0 28 05/24/19 21:00 77 23 146/57 (86) 100 05/24/19 20:58 77 148/74 05/24/19 20:00 98.2 77 22 148/74 (98) 100 05/24/19 20:00 T-piece 5.0 T-piece 5.0 T-piece 5.0 05/24/19 20:00 76 05/24/19 20:00 5.0 28 05/24/19 19:12 76 22 100 T-Piece 5.0 28 05/24/19 19:02 100 T-Piece 5.0 28 05/24/19 19:02 76 21 100 T-Piece 5.0 28 05/24/19 19:00 76 22 145/67 (93) 100 05/24/19 18:00 78 26 150/68 (95) 100 05/24/19 17:00 85 19 168/86 (113) 100 05/24/19 16:00 98.4 76 23 122/56 (78) 98 05/24/19 16:00 5.0 28 05/24/19 16:00 T-piece 5.0 T-piece 5.0 T-piece 5.0 05/24/19 15:54 75 05/24/19 15:00 75 23 125/54 (77) 100 05/24/19 14:44 75 23 100 T-Piece 5.0 28 74 22 100 05/24/19 14:00 74 22 124/55 (78) 100 05/24/19 13:09 100 T-Piece 5.0 28 05/24/19 13:00 75 22 120/55 (76) 99 05/24/19 12:00 5.0 28 05/24/19 12:00 T-piece 5.0 T-piece 5.0 T-piece 5.0 05/24/19 12:00 98.4 76 22 128/58 (81) 100 05/24/19 11:23 75 05/24/19 11:00 76 22 130/52 (78) 100 05/24/19 10:49 86 21 100 T-Piece 5.0 28 80 22 100 05/24/19 10:00 75 22 135/54 (81) 100 05/24/19 09:04 76 22 100 T-Piece 5.0 28 76 20 100 05/24/19 09:00 77 22 149/69 (95) 99 Intake and Output 05/24/19 05/25/19 19:00 07:00 Intake Total 1770 ml 1220 ml Output Total 350 ml 1100 ml Balance 1420 ml 120 ml Free Water 300 ml 200 ml IV Total 200 ml Tube Feeding 720 ml 720 ml Other 550 ml 300 ml Output Urine Total 300 ml 900 ml Gastric Drainage Total 50 ml 200 ml # Bowel Movements 1 Objective WDWN NAD on oxygen off vent reduced breath sounds bilaterally with occ rhonchi [id number] without MRG NABS nontender no HSM no CC trace edema same contractures noted nonfocal nonverbal trach and gt reviewed and edited Laboratory Tests 05/25/19 05:25: White Blood Count 10.3, Red Blood Count 2.85L, Hemoglobin 8.3L, Hematocrit 24.9L , Mean Corpuscular Volume 88, Mean Corpuscular Hemoglobin 29.2, Mean Corpuscular Hemoglobin Concent 33.4, Red Cell Distribution Width 14.0, Platelet Count 343, Mean Platelet Volume 5.0L, Neutrophils (%) (Auto) 58.1, Lymphocytes ( %) (Auto) 30.9, Monocytes (%) (Auto) 5.7, Eosinophils (%) (Auto) 4.0H, Basophils (%) (Auto) 1.2, Sodium Level 140, Potassium Level 4.1, Chloride Level 103, Carbon Dioxide Level 29, Anion Gap 8, Blood Urea Nitrogen 41H, Creatinine 0.9, Estimat Glomerular Filtration Rate > 60, Glucose Level 104, Calcium Level 9.3, Phosphorus Level 3.5, Magnesium Level 1.6L, Total Bilirubin 0.2, Aspartate Amino Transf (AST/SGOT) 33, Alanine Aminotransferase (ALT/SGPT) 51, Alkaline Phosphatase 178H, Total Protein 8.2, Albumin 2.5L, Globulin 5.7, Albumin/ Globulin Ratio 0.4L Current Medications Medications (Trade) Dose Ordered Sig/Maicol Route PRN Reason Start Time Stop Time Status Last Admin Dose Admin Acetaminophen (Tylenol) 650 mg Q4H PRN RECTAL T>100.5 / Mild Pain 05/07/19 09:45 06/06/19 09:44 05/07/19 10:13 Albuterol/ Ipratropium (Albuterol/ Ipratropium) 3 ml Q4HRT HHN 05/21/19 23:00 05/26/19 22:59 05/25/19 07:08 Amikacin Sulfate (Amikin) 500 mg Q12HRT@1000,2200 INH 05/21/19 11:00 05/28/19 10:59 05/24/19 21:40 Atropine Sulfate (Atropine Opth Adriana) 1 drop Q6HR SL 05/11/19 00:00 06/10/19 08:59 05/25/19 05:52 Carvedilol (Coreg) 6.25 mg EVERY 12 HOURS GT 05/23/19 21:00 06/22/19 20:59 05/24/19 20:58 Fluconazole/ Sodium Chloride 200 ml @ 100 mls/hr Q24H IV 05/18/19 12:00 05/28/19 13:00 05/24/19 11:54 Heparin Sodium (Porcine) (Heparin 5000 units/ml) 5,000 units EVERY 12 HOURS SUBQ 05/01/19 21:00 05/31/19 20:59 05/24/19 20:59 Hydralazine HCl (Apresoline) 10 mg Q4H PRN IV For High Blood Pressure 05/11/19 05:45 06/10/19 05:44 05/12/19 00:08 Levetiracetam (Keppra) 500 mg Q12HR GT 05/01/19 21:00 05/28/19 08:59 05/24/19 20:58 Magnesium Oxide (Mag-Ox 400mg) 400 mg THREE TIMES A DAY JT 05/24/19 13:00 06/23/19 12:59 05/24/19 17:54 Pantoprazole (Protonix) 40 mg DAILY IVP 05/15/19 18:15 06/14/19 18:14 05/24/19 08:06 Amaury Chan MD May 25, 2019 08:23
--- NOTE | 2019-05-25 09:14 | NUR ---
NURSE NOTES: Turned and repositioned pt. Oral acre done. Suctioned small amount of thin white secretion. Will continue to monitor.
--- NOTE | 2019-05-25 09:19 | Infectious Diseases Prog Note ---
Assessment/Plan Assessment/Plan A 1.Pseudomonas & Providencia pneumonia 2.Chronic respiratory failure 3. hypertension 4. CVA 5. dementia 6. sacral decubitus ulcer 7. rectal VRE colonization 8. Anemia 9. Proteus UTI treated 10. Acute renal failure 11. Sepsis with Klebsiella ( KPC), treated 12.delano Parapsilosis sepsis P 1 continue Fluconazole X 3 days 2.continue Amikacin inhaler X 2 days Subjective ROS Limited/Unobtainable: Yes Constitutional: Denies: fever Allergies: Coded Allergies: CODEINE (Verified Allergy, Unknown, HIVES, 09/15/09) Objective Vital Signs Last 24 Hour Vital Signs Date Time Temp Pulse Resp B/P (MAP) Pulse Ox O2 Delivery O2 Flow Rate FiO2 05/25/19 09:00 76 21 146/64 (91) 100 05/25/19 08:22 75 157/64 05/25/19 08:00 98.2 75 21 157/64 (95) 100 05/25/19 08:00 5.0 28 05/25/19 08:00 T-piece 5.0 T-piece 5.0 T-piece 5.0 05/25/19 07:18 99 T-Piece 5.0 28 05/25/19 07:18 75 18 100 T-Piece 5.0 28 81 18 99 05/25/19 07:00 75 20 157/61 (93) 100 05/25/19 06:57 74 05/25/19 06:00 73 21 156/61 (92) 99 05/25/19 05:00 73 21 157/58 (91) 100 05/25/19 04:00 98.3 78 18 154/66 (95) 99 05/25/19 04:00 5.0 28 05/25/19 04:00 73 05/25/19 04:00 T-piece 5.0 T-piece 5.0 T-piece 5.0 05/25/19 03:20 73 21 100 T-Piece 5.0 28 05/25/19 03:10 69 20 100 T-Piece 5.0 28 05/25/19 03:00 69 22 132/50 (77) 100 05/25/19 02:00 76 22 141/55 (83) 100 05/25/19 01:05 100 T-Piece 5.0 28 05/25/19 01:00 74 22 137/57 (83) 99 05/25/19 00:00 5.0 28 05/25/19 00:00 98.0 73 20 125/47 (73) 100 05/25/19 00:00 T-piece 5.0 T-piece 5.0 T-piece 5.0 05/24/19 23:31 74 18 100 T-Piece 5.0 28 05/24/19 23:21 76 19 98 T-Piece 5.0 28 05/24/19 23:00 72 21 138/54 (82) 99 05/24/19 22:00 72 23 124/49 (74) 100 05/24/19 21:50 72 20 100 T-Piece 5.0 28 05/24/19 21:40 74 17 100 T-Piece 5.0 28 05/24/19 21:00 77 23 146/57 (86) 100 05/24/19 20:58 77 148/74 05/24/19 20:00 98.2 77 22 148/74 (98) 100 05/24/19 20:00 T-piece 5.0 T-piece 5.0 T-piece 5.0 05/24/19 20:00 76 05/24/19 20:00 5.0 28 05/24/19 19:12 76 22 100 T-Piece 5.0 28 05/24/19 19:02 100 T-Piece 5.0 28 05/24/19 19:02 76 21 100 T-Piece 5.0 28 05/24/19 19:00 76 22 145/67 (93) 100 05/24/19 18:00 78 26 150/68 (95) 100 05/24/19 17:00 85 19 168/86 (113) 100 05/24/19 16:00 98.4 76 23 122/56 (78) 98 05/24/19 16:00 5.0 28 05/24/19 16:00 T-piece 5.0 T-piece 5.0 T-piece 5.0 05/24/19 15:54 75 05/24/19 15:00 75 23 125/54 (77) 100 05/24/19 14:44 75 23 100 T-Piece 5.0 28 74 22 100 05/24/19 14:00 74 22 124/55 (78) 100 05/24/19 13:09 100 T-Piece 5.0 28 05/24/19 13:00 75 22 120/55 (76) 99 05/24/19 12:00 5.0 28 05/24/19 12:00 T-piece 5.0 T-piece 5.0 T-piece 5.0 05/24/19 12:00 98.4 76 22 128/58 (81) 100 05/24/19 11:23 75 05/24/19 11:00 76 22 130/52 (78) 100 05/24/19 10:49 86 21 100 T-Piece 5.0 28 80 22 100 05/24/19 10:00 75 22 135/54 (81) 100 Height (Feet): 5 Height (Inches): 3.00 Weight (Pounds): 137 General Appearance: no acute distress HEENT: status post trach Respiratory/Chest: lungs clear, other - on Tbar, Cardiovascular: normal rate Abdomen: soft, non tender Extremities: no edema Neurologic/Psychiatric: aphasia Laboratory Tests Test 05/25/19 05:25 White Blood Count 10.3 K/UL (4.8-10.8) Red Blood Count 2.85 M/UL (4.20-5.40) L Hemoglobin 8.3 G/DL (12.0-16.0) L Hematocrit 24.9 % (37.0-47.0) L Mean Corpuscular Volume 88 FL (80-99) Mean Corpuscular Hemoglobin 29.2 PG (27.0-31.0) Mean Corpuscular Hemoglobin Concent 33.4 G/DL (32.0-36.0) Red Cell Distribution Width 14.0 % (11.6-14.8) Platelet Count 343 K/UL (150-450) Mean Platelet Volume 5.0 FL (6.5-10.1) L Neutrophils (%) (Auto) 58.1 % (45.0-75.0) Lymphocytes (%) (Auto) 30.9 % (20.0-45.0) Monocytes (%) (Auto) 5.7 % (1.0-10.0) Eosinophils (%) (Auto) 4.0 % (0.0-3.0) H Basophils (%) (Auto) 1.2 % (0.0-2.0) Sodium Level 140 MMOL/L (136-145) Potassium Level 4.1 MMOL/L (3.5-5.1) Chloride Level 103 MMOL/L (98-107) Carbon Dioxide Level 29 MMOL/L (21-32) Anion Gap 8 mmol/L (5-15) Blood Urea Nitrogen 41 mg/dL (7-18) H Creatinine 0.9 MG/DL (0.55-1.30) Estimat Glomerular Filtration Rate > 60 mL/min (>60) Glucose Level 104 MG/DL (74-106) Calcium Level 9.3 MG/DL (8.5-10.1) Phosphorus Level 3.5 MG/DL (2.5-4.9) Magnesium Level 1.6 MG/DL (1.8-2.4) L Total Bilirubin 0.2 MG/DL (0.2-1.0) Aspartate Amino Transf (AST/SGOT) 33 U/L (15-37) Alanine Aminotransferase (ALT/SGPT) 51 U/L (12-78) Alkaline Phosphatase 178 U/L (46-116) H Total Protein 8.2 G/DL (6.4-8.2) Albumin 2.5 G/DL (3.4-5.0) L Globulin 5.7 g/dL Albumin/Globulin Ratio 0.4 (1.0-2.7) L Current Medications Medications (Trade) Dose Ordered Sig/Maicol Route PRN Reason Start Time Stop Time Status Last Admin Dose Admin Acetaminophen (Tylenol) 650 mg Q4H PRN RECTAL T>100.5 / Mild Pain 05/07/19 09:45 06/06/19 09:44 05/07/19 10:13 Albuterol/ Ipratropium (Albuterol/ Ipratropium) 3 ml Q4HRT HHN 05/21/19 23:00 05/26/19 22:59 05/25/19 07:08 Amikacin Sulfate (Amikin) 500 mg Q12HRT@1000,2200 INH 05/21/19 11:00 05/28/19 10:59 05/24/19 21:40 Atropine Sulfate (Atropine Opth Adriana) 1 drop Q6HR SL 05/11/19 00:00 06/10/19 08:59 05/25/19 05:52 Carvedilol (Coreg) 6.25 mg EVERY 12 HOURS GT 05/23/19 21:00 06/22/19 20:59 05/25/19 08:22 Fluconazole/ Sodium Chloride 200 ml @ 100 mls/hr Q24H IV 05/18/19 12:00 05/28/19 13:00 05/24/19 11:54 Heparin Sodium (Porcine) (Heparin 5000 units/ml) 5,000 units EVERY 12 HOURS SUBQ 05/01/19 21:00 05/31/19 20:59 05/25/19 08:23 Hydralazine HCl (Apresoline) 10 mg Q4H PRN IV For High Blood Pressure 05/11/19 05:45 06/10/19 05:44 05/12/19 00:08 Levetiracetam (Keppra) 500 mg Q12HR GT 05/01/19 21:00 05/28/19 08:59 05/25/19 08:21 Magnesium Oxide (Mag-Ox 400mg) 400 mg THREE TIMES A DAY JT 05/24/19 13:00 06/23/19 12:59 05/25/19 08:21 Pantoprazole (Protonix) 40 mg DAILY IVP 05/15/19 18:15 06/14/19 18:14 05/25/19 08:22 Chauncey Liriano MD May 25, 2019 09:19
[2019-05-25] MEDS: Amikacin for Inhalation 2ML INH SCH ×2 (09:37→21:39)
--- NOTE | 2019-05-25 10:03 | NUR ---
RD ASSESSMENT & RECOMMENDATIONS SEE CARE ACTIVITY FOR COMPLETE ASSESSMENT DAILY ESTIMATED NEEDS: Needs based on Pulmonary, wounds, bedbound/ 61kg adj 25-30 kcals/kg 5529-6387 total kcals 1.25-2 g protein/kg 76-122 g total protein 25-30 mL/kg 7899-7255 total fluid mLs NUTRITION DIAGNOSIS: * Increased kcal/prot needs R/T wound healing as evidenced by BL buttocks and sacral wound photos, refer to WC eval-> wounds resolving, sacrum healed. * Swallowing difficulty R/T respiratory status as evidenced by pt on T-collar, s/p G-J conversion ENTERAL NUTRITION RECOMMENDATIONS: VITAL AF 1.2 @ 60ml/hr x 24 hrs to provide 1440ml, 1728kcal, 108g prot, 1167ml free water - Maintain current TF as tolerated-> meets 100% est needs - HOB over 30 degrees - Rec to increase water flushes ADDITIONAL RECOMMENDATIONS: 1) Maintain calibrated bedscale wt: fluctuating daily wts 2) Wound healing: maintain Cristian BID for skin integrity -> Vit C 250 mg daily 3) Monitor for continued good TF tolerance 4) Monitor hydration status (elev BUN) -> current flush order for total of 1500ml free H2O daily 5) Rec NISS for improved BG control-> BG wnl
--- NOTE | 2019-05-25 11:03 | Nephrology Progress Note ---
Assessment/Plan Problem List: (1) Acute renal failure (ARF) Assessment: Cr stable (2) Chronic respiratory failure (3) Anemia (4) Sepsis Assessment Acute renal failure Respiratory failure - Trach Low Mag- Low k , Low Na Anemia UTI / Sepsis Proteinuria / HypoAlbuminemia high Trigs Sz decubs bed bound DNR Plan on Coreg now Transfused 05/09 has JT bolus Albumin as needed K and Mag and Phos supplement as needed Hydrate as needed Urine studies avoid Nephrotoxics mag K Phos supplements as needed monitor renal parameters Subjective ROS Limited/Unobtainable: Yes Objective Objective Last 24 Hour Vital Signs Date Time Temp Pulse Resp B/P (MAP) Pulse Ox O2 Delivery O2 Flow Rate FiO2 05/25/19 10:00 74 22 151/61 (91) 100 05/25/19 09:46 71 22 100 T-Piece 5.0 28 75 21 100 05/25/19 09:00 76 21 146/64 (91) 100 05/25/19 08:22 75 157/64 05/25/19 08:00 98.2 75 21 157/64 (95) 100 05/25/19 08:00 5.0 28 05/25/19 08:00 T-piece 5.0 T-piece 5.0 T-piece 5.0 05/25/19 07:18 99 T-Piece 5.0 28 05/25/19 07:18 75 18 100 T-Piece 5.0 28 81 18 99 05/25/19 07:00 75 20 157/61 (93) 100 05/25/19 06:57 74 05/25/19 06:00 73 21 156/61 (92) 99 05/25/19 05:00 73 21 157/58 (91) 100 05/25/19 04:00 98.3 78 18 154/66 (95) 99 05/25/19 04:00 5.0 28 05/25/19 04:00 73 05/25/19 04:00 T-piece 5.0 T-piece 5.0 T-piece 5.0 05/25/19 03:20 73 21 100 T-Piece 5.0 28 05/25/19 03:10 69 20 100 T-Piece 5.0 28 05/25/19 03:00 69 22 132/50 (77) 100 05/25/19 02:00 76 22 141/55 (83) 100 05/25/19 01:05 100 T-Piece 5.0 28 05/25/19 01:00 74 22 137/57 (83) 99 05/25/19 00:00 5.0 28 05/25/19 00:00 98.0 73 20 125/47 (73) 100 05/25/19 00:00 T-piece 5.0 T-piece 5.0 T-piece 5.0 05/24/19 23:31 74 18 100 T-Piece 5.0 28 05/24/19 23:21 76 19 98 T-Piece 5.0 28 05/24/19 23:00 72 21 138/54 (82) 99 05/24/19 22:00 72 23 124/49 (74) 100 05/24/19 21:50 72 20 100 T-Piece 5.0 28 05/24/19 21:40 74 17 100 T-Piece 5.0 28 05/24/19 21:00 77 23 146/57 (86) 100 05/24/19 20:58 77 148/74 05/24/19 20:00 98.2 77 22 148/74 (98) 100 05/24/19 20:00 T-piece 5.0 T-piece 5.0 T-piece 5.0 05/24/19 20:00 76 05/24/19 20:00 5.0 28 05/24/19 19:12 76 22 100 T-Piece 5.0 28 05/24/19 19:02 100 T-Piece 5.0 28 05/24/19 19:02 76 21 100 T-Piece 5.0 28 05/24/19 19:00 76 22 145/67 (93) 100 05/24/19 18:00 78 26 150/68 (95) 100 05/24/19 17:00 85 19 168/86 (113) 100 05/24/19 16:00 98.4 76 23 122/56 (78) 98 05/24/19 16:00 5.0 28 05/24/19 16:00 T-piece 5.0 T-piece 5.0 T-piece 5.0 05/24/19 15:54 75 05/24/19 15:00 75 23 125/54 (77) 100 05/24/19 14:44 75 23 100 T-Piece 5.0 28 74 22 100 223/20 14:00 74 22 124/55 (78) 100 05/24/19 13:09 100 T-Piece 5.0 28 05/24/19 13:00 75 22 120/55 (76) 99 05/24/19 12:00 5.0 28 05/24/19 12:00 T-piece 5.0 T-piece 5.0 T-piece 5.0 05/24/19 12:00 98.4 76 22 128/58 (81) 100 05/24/19 11:23 75 Intake and Output 05/24/19 05/25/19 19:00 07:00 Intake Total 1770 ml 1220 ml Output Total 350 ml 1100 ml Balance 1420 ml 120 ml Free Water 300 ml 200 ml IV Total 200 ml Tube Feeding 720 ml 720 ml Other 550 ml 300 ml Output Urine Total 300 ml 900 ml Gastric Drainage Total 50 ml 200 ml # Bowel Movements 1 Laboratory Tests 05/25/19 05:25: White Blood Count 10.3, Red Blood Count 2.85L, Hemoglobin 8.3L, Hematocrit 24.9L , Mean Corpuscular Volume 88, Mean Corpuscular Hemoglobin 29.2, Mean Corpuscular Hemoglobin Concent 33.4, Red Cell Distribution Width 14.0, Platelet Count 343, Mean Platelet Volume 5.0L, Neutrophils (%) (Auto) 58.1, Lymphocytes ( %) (Auto) 30.9, Monocytes (%) (Auto) 5.7, Eosinophils (%) (Auto) 4.0H, Basophils (%) (Auto) 1.2, Sodium Level 140, Potassium Level 4.1, Chloride Level 103, Carbon Dioxide Level 29, Anion Gap 8, Blood Urea Nitrogen 41H, Creatinine 0.9, Estimat Glomerular Filtration Rate > 60, Glucose Level 104, Calcium Level 9.3, Phosphorus Level 3.5, Magnesium Level 1.6L, Total Bilirubin 0.2, Aspartate Amino Transf (AST/SGOT) 33, Alanine Aminotransferase (ALT/SGPT) 51, Alkaline Phosphatase 178H, Total Protein 8.2, Albumin 2.5L, Globulin 5.7, Albumin/ Globulin Ratio 0.4L Height (Feet): 5 Height (Inches): 3.00 Weight (Pounds): 137 General Appearance: no apparent distress EENT: other - trach to O2 Cardiovascular: normal rate Respiratory/Chest: decreased breath sounds Abdomen: soft Objective no change Eric Cortez MD May 25, 2019 11:03
--- NOTE | 2019-05-25 11:10 | NUR ---
NURSE NOTES: Cleaned pt for 1 moderate amount of pasty brown BM. Repositioned pt. Breathing treatment given by RT at bedside.
--- NOTE | 2019-05-25 13:03 | Surgery Progress Note ---
Surgery Progress Note Subjective Symptoms: improved, tolerating diet, voiding well, passing flatus, BM Objective Last 24 Hour Vital Signs Date Time Temp Pulse Resp B/P (MAP) Pulse Ox O2 Delivery O2 Flow Rate FiO2 05/25/19 12:00 T-piece 5.0 T-piece 5.0 T-piece 5.0 05/25/19 11:01 74 18 100 T-Piece 5.0 28 74 18 100 05/25/19 11:00 74 21 155/62 (93) 98 05/25/19 10:00 74 22 151/61 (91) 100 05/25/19 09:46 71 22 100 T-Piece 5.0 28 75 21 100 05/25/19 09:00 76 21 146/64 (91) 100 05/25/19 08:22 75 157/64 05/25/19 08:00 98.2 75 21 157/64 (95) 100 05/25/19 08:00 5.0 28 05/25/19 08:00 T-piece 5.0 T-piece 5.0 T-piece 5.0 05/25/19 07:18 99 T-Piece 5.0 28 05/25/19 07:18 75 18 100 T-Piece 5.0 28 81 18 99 05/25/19 07:00 75 20 157/61 (93) 100 05/25/19 06:57 74 05/25/19 06:00 73 21 156/61 (92) 99 05/25/19 05:00 73 21 157/58 (91) 100 05/25/19 04:00 98.3 78 18 154/66 (95) 99 05/25/19 04:00 5.0 28 05/25/19 04:00 73 05/25/19 04:00 T-piece 5.0 T-piece 5.0 T-piece 5.0 05/25/19 03:20 73 21 100 T-Piece 5.0 28 05/25/19 03:10 69 20 100 T-Piece 5.0 28 05/25/19 03:00 69 22 132/50 (77) 100 05/25/19 02:00 76 22 141/55 (83) 100 05/25/19 01:05 100 T-Piece 5.0 28 05/25/19 01:00 74 22 137/57 (83) 99 05/25/19 00:00 5.0 28 05/25/19 00:00 98.0 73 20 125/47 (73) 100 05/25/19 00:00 T-piece 5.0 T-piece 5.0 T-piece 5.0 05/24/19 23:31 74 18 100 T-Piece 5.0 28 05/24/19 23:21 76 19 98 T-Piece 5.0 28 05/24/19 23:00 72 21 138/54 (82) 99 05/24/19 22:00 72 23 124/49 (74) 100 05/24/19 21:50 72 20 100 T-Piece 5.0 28 05/24/19 21:40 74 17 100 T-Piece 5.0 28 05/24/19 21:00 77 23 146/57 (86) 100 05/24/19 20:58 77 148/74 05/24/19 20:00 98.2 77 22 148/74 (98) 100 05/24/19 20:00 T-piece 5.0 T-piece 5.0 T-piece 5.0 05/24/19 20:00 76 05/24/19 20:00 5.0 28 05/24/19 19:12 76 22 100 T-Piece 5.0 28 05/24/19 19:02 100 T-Piece 5.0 28 05/24/19 19:02 76 21 100 T-Piece 5.0 28 05/24/19 19:00 76 22 145/67 (93) 100 05/24/19 18:00 78 26 150/68 (95) 100 05/24/19 17:00 85 19 168/86 (113) 100 05/24/19 16:00 98.4 76 23 122/56 (78) 98 05/24/19 16:00 5.0 28 05/24/19 16:00 T-piece 5.0 T-piece 5.0 T-piece 5.0 05/24/19 15:54 75 05/24/19 15:00 75 23 125/54 (77) 100 05/24/19 14:44 75 23 100 T-Piece 5.0 28 74 22 100 05/24/19 14:00 74 22 124/55 (78) 100 05/24/19 13:09 100 T-Piece 5.0 28 I&O Intake and Output 2/23/20 2/24/20 19:00 07:00 Intake Total 1770 ml 1220 ml Output Total 350 ml 1100 ml Balance 1420 ml 120 ml Free Water 300 ml 200 ml IV Total 200 ml Tube Feeding 720 ml 720 ml Other 550 ml 300 ml Output Urine Total 300 ml 900 ml Gastric Drainage Total 50 ml 200 ml # Bowel Movements 1 Dressing: dry Wound: clean Cardiovascular: RSR Respiratory: clear Abdomen: soft, non-tender, present bowel sounds Extremities: no tenderness, no cyanosis, other Laboratory Tests Test 05/25/19 05:25 White Blood Count 10.3 K/UL (4.8-10.8) Red Blood Count 2.85 M/UL (4.20-5.40) L Hemoglobin 8.3 G/DL (12.0-16.0) L Hematocrit 24.9 % (37.0-47.0) L Mean Corpuscular Volume 88 FL (80-99) Mean Corpuscular Hemoglobin 29.2 PG (27.0-31.0) Mean Corpuscular Hemoglobin Concent 33.4 G/DL (32.0-36.0) Red Cell Distribution Width 14.0 % (11.6-14.8) Platelet Count 343 K/UL (150-450) Mean Platelet Volume 5.0 FL (6.5-10.1) L Neutrophils (%) (Auto) 58.1 % (45.0-75.0) Lymphocytes (%) (Auto) 30.9 % (20.0-45.0) Monocytes (%) (Auto) 5.7 % (1.0-10.0) Eosinophils (%) (Auto) 4.0 % (0.0-3.0) H Basophils (%) (Auto) 1.2 % (0.0-2.0) Sodium Level 140 MMOL/L (136-145) Potassium Level 4.1 MMOL/L (3.5-5.1) Chloride Level 103 MMOL/L (98-107) Carbon Dioxide Level 29 MMOL/L (21-32) Anion Gap 8 mmol/L (5-15) Blood Urea Nitrogen 41 mg/dL (7-18) H Creatinine 0.9 MG/DL (0.55-1.30) Estimat Glomerular Filtration Rate > 60 mL/min (>60) Glucose Level 104 MG/DL (74-106) Calcium Level 9.3 MG/DL (8.5-10.1) Phosphorus Level 3.5 MG/DL (2.5-4.9) Magnesium Level 1.6 MG/DL (1.8-2.4) L Total Bilirubin 0.2 MG/DL (0.2-1.0) Aspartate Amino Transf (AST/SGOT) 33 U/L (15-37) Alanine Aminotransferase (ALT/SGPT) 51 U/L (12-78) Alkaline Phosphatase 178 U/L (46-116) H Total Protein 8.2 G/DL (6.4-8.2) Albumin 2.5 G/DL (3.4-5.0) L Globulin 5.7 g/dL Albumin/Globulin Ratio 0.4 (1.0-2.7) L Plan Problems: (1) Sacral decubitus ulcer Assessment & Plan: This is a 83-year-old female with multiple medical committees that is currently admitted for medical care and management and identified to have multiple wounds requiring care. On admission patient noted to have a resolved sacral decubitus ulcer. Has had prior care and is well-healed at this time. Will ensure it does not open up again. Patient has a right ischial decubitus ulcer that is resolved. Scar intact and well formed. Will monitor to ensure it does not open up again. Patient has a left ischial decubitus ulcer that can be identified to be stage IV with palpable bone that has been resolving as noted by the periwound tissue and scar but open area approximately 1 cm x 1.5 cm few millimeters deep to bone identified. Unsure if this is been to be completely healed prior and has since opened or if has been healing at this level. No foul odor no drainage was unsure local wound care until healed Bilateral heels soft without signs of injury Resolving pressure injury L ischium(L)1.8cm x (W)1cm.Scattered biofilm at base of wound. Edges flat and adherent with surrounding hyperpigmentation. No odor or exudate noted. Sacrum is pale pink with surrounding hyperpigmentation. Hyperpigmentation R ischium with small sheared area centrally.No areas of erythema or exudate noted. Both heels are soft but blanchable. Skin Assessed under collar of trach and no evidence of skin breakdown noted. All wound Tx. are effective and continued as ordered. Pt ahs an APM/Belén mattress overlay and is being repositioned per protocols and per tolerance.No new skin concerns noted. Full thickness pressure injury L Ischium with small amt biofilm (L)1.8cm x (W) 1cm. Surrounding pink hyperpigmentation. No odor or exudate noted. [place] hyperpigmentation from previous wound noted to sacrum. Pt also noted to have Cat 2 Skin Tear dorsal L hand, L 5th metatarsal extending into palm of hand. 80% skin flap in situ.Both heels are dry firm and blanchable. No other skin concerns noted. R ischial wound has resolved. [place] epithelial with surrounding hyperpigmentation. from historical wound. Full thickness pressure injury L ischium. [place] granulation at base of wound. Borders are macerated with Surrounding hyperpigmentation.Small amt non-odorous serous exudate noted.(L)0.7cm x (W)0.8cm. Skin hyperpigmentation from historical wound noted to Sacrum. Small sheared area noted to sacrococcygeal area.(L)0.4cm x (W)0.3cm.Small amt sanguineous exudate noted. Reabsorbed blister with semi-detached dry necrotic cap noted to web space of L thumb and L index fingers extending into palm of L hand. No odor or exudate noted. Skin assessed under tracheal collar and no erythema or evidence of Skin Breakdown noted. NO new skin concerns noted . Good hand hygiene provided to both hands. R hand contracted and fisted. Fingernails trimmed. Wound care provided along with Primary nurse. Wound Tx continued as ordered. New order obtained from to apply Betadine to wound L hand Daily. Tx done as ordered. L hand wrapped with kerlix weaving kerlix between fingers to separate fingers. Moisture Barrier applied to sacrum ,R ischium. Each site covered with Optifoam drsg. Both lower ext washed and moisturized. Cavilon Skin Barrier applied to both heels.Each heel covered with Optifoam drsgs. Pt positioned with pillows and both heels off-loaded with pillow. Pt wounds are resolving. Loose necrotic cap within web space of L index finger and L thumb easily removed with gentle friction. Base of wound is hypergranular with 10% necrosis. Borders are macerated. Application of Silver Nitrate to hypergranular base done. Cavilon Skin Barrier applied to borders . Good hand hygiene provided. Wound covered with Abd pad. L hand wrapped with Kerlix weaving Kerlix between digitsof L hand. Pressure injury L ischium resolving. Base iof wound is pale pink and dry with surrounding hyperpigmentation and scar from previous wound. Hyperpigmentation with historical scars noted to Sacrum and R ischium. Both heels are soft and blanchable. Skin Assessed under trach collar and no evidence of skin breakdown noted. Pt having frequent loose B.Ms. MASD noted to lumbar -sacral area and buttocks. Erythema with moisture denudement and satellite lesions noted to lumbar-sacral, Sacrum,R and L buttocks,both ischium and extends into perineum. Sites of recently resolved pressure injuries R and L ischium noted to be denuded and excoriated. Unfortunately her current medical condition this is inevitable decline as we have done our best to ensure proper care with extensive attention paid to the patient at all times. Bilat groin area,including mons pubis and medial aspects of both upper thighs grossly red and denuded. L breast ,L upper abd, L axilla and medial upper arm grossly red and macerated.Mild odor noted. Wound Web space of L index and L thumb has resolved. Skin Assessed under collar of trach and no evidence of skin breakdown noted. Bilat foot drop noted . Both heels and malleoli both feet are blanchable. Tx.Plan: Apply Betadine to wound L hand. Cover with Gauze and wrap with Kerlix Daily and prn. Cleanse skin L breast ,L upper abd ,L axilla and L upper arm. Pat dry. Apply Light dusting of Antifungal powder to affected areas Twice Daily. Apply Remedy Antifungal Cream to lumbar sacral area, Buttocks ,Bilat Groin and Perineum Twice daily. May apply 1:1 application with Triad Paste. Apply Triad Paste to abd folds, Bilat groin and buttocks with each incontinence care. Apply Cavilon Skin Barrier to both heels and Malleoli both feet. Cover each areas with Optifoam drsg every 7 days and prn. Cleanse L ischial wound with Saline. Apply Therahoney. Apply Moisture Barrier periwound. Cover with Optifoam drsgevery 3 days and prn. Apply Moisture Barrier Paste to R ischium and Sacrum. Cover each area with Optifoam drsg. Change every 3 days and prn. Apply Cavilon Skin Barrier to both heels. Cover each heel with Optifoam drsg. Change every 7 days and prn. Cleanse Blister Dorsal and palm of L hand with saline. Versatel One Silicone Contact Layer(Applied). Apply Silvasorb Gel. Wrap with Kerlix Gauze.Change every 7 days and prn. Apply Moisture Barrier to sacrum. Cover with Optifoam drsg. Change every 3 days and prn. APM/BELÉN Mattress overlay. Reposition at least every 2hours or as tolerated. Off-load heels with pillow. Nutritional optimization We will monitor follow with recommendations cont with above upon d/c wounds healing overall improving left hand wound almost resolved. 80% healed (2) Sepsis Assessment & Plan: IV abx as per ID trend labs improving wounds unlikely etiology likely respiratory imaging noted and okay abnormal lft's stable PICC on Abx in ICU for desaturation CXR with consolidation cont with frequent suctioning d/c planning g j via GI acute leukocytosis decompensation hypotensive on pressors pending c diff abx changed per ID daughter wants close attention to wounds and management to ensure healing Evidence of left lower lobe pneumonia, also previously demonstrated Gastrostomy in good position Mild diastasis of the rectus abdominis musculature again demonstrated Retrosacral decubitus changes, better depicted on prior exam which included the pelvis Small hiatal hernia with evidence of trace gastroesophageal reflux Discussed with GI. Recommend GJ family still pending decision transfuse prbc prn monitor h/h monitor bm LFTs improving trending down Findings: Previously demonstrated gastrostomy tube has been converted to a gastrojejunostomy. Gastrostomy balloon is in good position. The shaft of the jejunostomy portion coils in the upper gastric fundus, and the tip is in the proximal jejunum just beyond the ligament of Treitz. The distal esophagus is unremarkable. Contrast is seen within the colon. The visualized bowel demonstrates no significant distention. There is diastasis of the rectus abdominis tendon again demonstrated. The appendix is visualized, normal. The liver, gallbladder, bile ducts, pancreas, spleen, adrenals, right kidney are unremarkable. The left kidney demonstrates a large interpolar region cyst. No retroperitoneal or mesenteric mass or adenopathy. The included lung bases demonstrate groundglass opacities, right greater than left, and areas of scarring or atelectasis on the left. Previously demonstrated left lower lobe dense consolidation has improved The bones demonstrate a very slight superior endplate compression fracture deformity of the L3 vertebral body, also evident previously. Previously reported retrosacral decubitus changes are not included in the current imaging volume Impression: Interim conversion of gastrostomy to gastrojejunostomy, jejunostomy tube tip at the origin of the jejunum, just beyond the ligament of Treitz No acute abdominal abnormality Mild bilateral basilar pulmonary parenchymal groundglass opacities, right greater than left, nonspecific, could indicate atelectasis, edema, or inflammation. May also be in part due to motion artifact. There are also atelectatic changes or scarring on the left L3 vertebral body mild superior endplate compression fracture deformity, also demonstrated on prior January 2019 exam and therefore not acute. Incidental findings as noted, including rectus abdominis tendon diastasis, large left renal cyst (3) Feeding by G-tube Assessment & Plan: DAILY ESTIMATED NEEDS: Needs based on Pulmonary, wounds, bedbound/ 61kg adj 25-30 kcals/kg [id number] total kcals 1.25-2 g protein/kg 76-122 g total protein 25-30 mL/kg [id number] total fluid mLs NUTRITION DIAGNOSIS: * Increased kcal/prot needs R/T wound healing as evidenced by BL buttocks and sacral wound photos, refer to eval. * Swallowing difficulty R/T respiratory status as evidenced by pt on T-collar, s/p G-J conversion CURRENT TF:Glucerna 1.5 @ 50ml/hr x 24 hrs ENTERAL NUTRITION RECOMMENDATIONS: Glucerna 1.5 @ 50ml/hr x 24 hrs to provide 1200ml, 1800 kcal, 99g pro, 911ml free H2O - Maintain at current rate as tolerated to meet 100% est needs - HOB over 30 degrees - INCREASE water flush of 170ml q 6 hrs ADDITIONAL RECOMMENDATIONS: 1) RE-calibrate bedscale wt: fluctuating daily wts (108#-136# last 6 days) 2) Wound healing: Add Cristian 1pkt BID w/ continued good TF tolerance. 3) Increase water flushes, monitor for signs of water deficits 4) Monitor BGs closely, need for NISS -> now w/ improved BGs 5) Monitor for continued good TF tolerance 6) Monitor K : elev K on 03/25, s/p Kdur BID, now dc'ed. (4) Chronic vegetative state Assessment & Plan: incontinence of urine and stool. can soil dressings. nurses doing great job with monitoring and changing prn (5) Leukocytosis Additional Comments overall improving labs improved exam improved doing well wound healing very well Walter Madera May 25, 2019 13:03
--- NOTE | 2019-05-25 13:59 | NUR ---
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 98.3 HR 74 RR 19 B/P 146/51 TRACH FIO2 28% BUN 41 MG 1.5 ALK 178 IS: MAGNESIUM IV DIFLUCAN IV AMIKACIN INH HEPARIN SUBC ICU STATUS
--- NOTE | 2019-05-25 14:00 | NUR ---
NURSE NOTES: Inserted new IVs on left hand. Pt tolerated well. Suctioned as needed. No acute distress noted. Will continue to monitor.
--- NOTE | 2019-05-25 16:00 | NUR ---
NURSE NOTES: Flushed both G and J tube with water as ordered. G tube is connected to low intermittent suction and J tube running Vital AF 1.2 at 60cc/hr as ordered. Pt is tolerating cool aerosol 28% well. O2 sat 100%. Will continue to monitor.
--- NOTE | 2019-05-25 19:10 | NUR ---
HAND-OFF: Report given to JEANNINE Ernst.
--- NOTE | 2019-05-25 20:00 | NUR ---
NURSE NOTES: Report received from JEANNINE Ramires. Pt is awake, able to respond to tactile stimuli. Non-verbal and not able to follow commands. Opens eyes spontaneously. Sinus rhythm 80's on electrolytic de scaler. Pt has T-piece with cool aerosol 28%, 5L. O2 sat 100%. Small amount of white thin secretion from T-piece and mouth. Pt coughs at times. GJ tube in place. Via J tube, pt is receiving Vital AF 1.2 at 60cc/hr. G tube is connected to low intermittent suction, draining yellow drainage. Pure-wick in place draining yellow urine via suction. IV to right FA G24 and right hand G22 patent and asymptomatic. Bed in lowest position. Side rails up x2. Will resume plan of care.
--- NOTE | 2019-05-25 20:05 | NUR ---
NURSE NOTES: Repositioned, No BM G-tube flushed 100cc J-tube flushed 150cc Intermittent suctioning working properly Oral care given Deep and oral suctioned Axillary temp is 98.3F Patient is cool to touch
--- NOTE | 2019-05-25 21:29 | General Progress Note ---
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 - Anemia with OB (-) stools - Resp failure, s/p Trach - OBS, vegetative obtunded unresponsive state, bedbound with contracted extremities - h/o minor GJ tube site irritation - poor Prognosis Recommendations - No plans for immune suppression at this time (risk benefit ratio in favor of holding off Rx) - abx per ID - PPI daily - Cristian BID - antibiotic ointment to GJT site PRN - aspiration precautions - elevate HOB - Vital AF 1.2 - transfuse to keep Hg > 7 - J tube feeds - G tube ---> LIS - check ESR --> elevated - further evaluation for autoimmune hepatitis (anti DNA) - DS DNA neg, SS DNA pending Subjective Allergies: Coded Allergies: CODEINE (Verified Allergy, Unknown, HIVES, 09/15/09) Subjective above noted d/w RN tolerating TF (+) BM LFT lower Objective Last 24 Hour Vital Signs Date Time Temp Pulse Resp B/P (MAP) Pulse Ox O2 Delivery O2 Flow Rate FiO2 05/25/19 20:12 71 127/49 05/25/19 20:00 98.3 72 20 127/49 (75) 100 05/25/19 20:00 T-piece 5.0 T-piece 5.0 T-piece 5.0 05/25/19 20:00 5.0 28 05/25/19 19:56 75 05/25/19 19:11 99 T-Piece 5.0 28 05/25/19 19:11 68 18 100 T-Piece 5.0 28 66 18 99 05/25/19 19:00 68 20 138/54 (82) 100 05/25/19 19:00 67 21 110/46 (67) 98 05/25/19 18:00 68 20 138/54 (82) 100 05/25/19 17:00 67 21 115/48 (70) 100 05/25/19 16:00 97.5 68 19 130/52 (78) 100 05/25/19 16:00 T-piece 5.0 T-piece 5.0 T-piece 5.0 05/25/19 16:00 5.0 28 05/25/19 15:58 68 05/25/19 15:00 70 21 137/58 (84) 100 05/25/19 14:52 78 18 100 T-Piece 5.0 28 72 18 100 05/25/19 14:00 70 18 138/60 (86) 100 05/25/19 13:36 100 T-Piece 5.0 28 05/25/19 13:00 69 19 123/54 (77) 100 05/25/19 12:16 73 05/25/19 12:00 T-piece 5.0 T-piece 5.0 T-piece 5.0 05/25/19 12:00 5.0 28 05/25/19 12:00 98.3 71 19 146/58 (87) 100 05/25/19 11:01 74 18 100 T-Piece 5.0 28 74 18 100 05/25/19 11:00 74 21 155/62 (93) 98 05/25/19 10:00 74 22 151/61 (91) 100 05/25/19 09:46 71 22 100 T-Piece 5.0 28 75 21 100 05/25/19 09:00 76 21 146/64 (91) 100 05/25/19 08:22 75 157/64 05/25/19 08:00 98.2 75 21 157/64 (95) 100 05/25/19 08:00 5.0 28 05/25/19 08:00 T-piece 5.0 T-piece 5.0 T-piece 5.0 05/25/19 07:18 99 T-Piece 5.0 28 05/25/19 07:18 75 18 100 T-Piece 5.0 28 81 18 99 05/25/19 07:00 75 20 157/61 (93) 100 05/25/19 06:57 74 05/25/19 06:00 73 21 156/61 (92) 99 05/25/19 05:00 73 21 157/58 (91) 100 05/25/19 04:00 98.3 78 18 154/66 (95) 99 05/25/19 04:00 5.0 28 05/25/19 04:00 73 05/25/19 04:00 T-piece 5.0 T-piece 5.0 T-piece 5.0 05/25/19 03:20 73 21 100 T-Piece 5.0 28 05/25/19 03:10 69 20 100 T-Piece 5.0 28 05/25/19 03:00 69 22 132/50 (77) 100 05/25/19 02:00 76 22 141/55 (83) 100 05/25/19 01:05 100 T-Piece 5.0 28 05/25/19 01:00 74 22 137/57 (83) 99 05/25/19 00:00 5.0 28 05/25/19 00:00 98.0 73 20 125/47 (73) 100 05/25/19 00:00 T-piece 5.0 T-piece 5.0 T-piece 5.0 05/24/19 23:31 74 18 100 T-Piece 5.0 28 05/24/19 23:21 76 19 98 T-Piece 5.0 28 05/24/19 23:00 72 21 138/54 (82) 99 05/24/19 22:00 72 23 124/49 (74) 100 05/24/19 21:50 72 20 100 T-Piece 5.0 28 05/24/19 21:40 74 17 100 T-Piece 5.0 28 Intake and Output 05/24/19 05/25/19 19:00 07:00 Intake Total 1770 ml 1220 ml Output Total 350 ml 1100 ml Balance 1420 ml 120 ml Free Water 300 ml 200 ml IV Total 200 ml Tube Feeding 720 ml 720 ml Other 550 ml 300 ml Output Urine Total 300 ml 900 ml Gastric Drainage Total 50 ml 200 ml # Bowel Movements 1 Laboratory Tests 05/25/19 05:25: White Blood Count 10.3, Red Blood Count 2.85L, Hemoglobin 8.3L, Hematocrit 24.9L , Mean Corpuscular Volume 88, Mean Corpuscular Hemoglobin 29.2, Mean Corpuscular Hemoglobin Concent 33.4, Red Cell Distribution Width 14.0, Platelet Count 343, Mean Platelet Volume 5.0L, Neutrophils (%) (Auto) 58.1, Lymphocytes ( %) (Auto) 30.9, Monocytes (%) (Auto) 5.7, Eosinophils (%) (Auto) 4.0H, Basophils (%) (Auto) 1.2, Sodium Level 140, Potassium Level 4.1, Chloride Level 103, Carbon Dioxide Level 29, Anion Gap 8, Blood Urea Nitrogen 41H, Creatinine 0.9, Estimat Glomerular Filtration Rate > 60, Glucose Level 104, Calcium Level 9.3, Phosphorus Level 3.5, Magnesium Level 1.6L, Total Bilirubin 0.2, Aspartate Amino Transf (AST/SGOT) 33, Alanine Aminotransferase (ALT/SGPT) 51, Alkaline Phosphatase 178H, Total Protein 8.2, Albumin 2.5L, Globulin 5.7, Albumin/ Globulin Ratio 0.4L Height (Feet): 5 Height (Inches): 3.00 Weight (Pounds): 137 Objective Debilitated AA woman non-verbal, obtunded NCAT (+) trach coarse BS RR obese abd, (+) GJT, (+) (L) trunk edema no edema (+) contractured extremities Celio Vaughan MD May 25, 2019 21:29
--- NOTE | 2019-05-25 22:00 | NUR ---
NURSE NOTES: Repositioned Suctioned deep and orally Vitals are stable remains cool to touch No BM Will continue to monitor.
[2019-05-26] VITALS (24 sets, daily range): BP systolic 103–158; BP diastolic 36–94
--- NOTE | 2019-05-26 | NUR ---
NURSE NOTES: Repositioned Oral care given Deep and oral suctioned No BM yet. J-tube flushed 150cc G-tube flushed 100cc Axillary temp is 99.0F
--- NOTE | 2019-05-26 01:45 | Progress Note ---
DATE: 05/24/2019 CARDIOLOGY PROGRESS NOTE Late entry for 05/24/2019. SUBJECTIVE: Still on T-tube collar. Minimal congestion. Tolerating feedings. No new events. Monitored rhythm, sinus. OBJECTIVE: VITAL SIGNS: Blood pressure 128/58, pulse 76, respiratory rate 22. LUNGS: Bilateral breath sounds. CARDIAC: Regular rhythm and rate. Normal S1, S2. ABDOMEN: Soft. EXTREMITIES: Trace edema. IMPRESSION: 1. Improved blood pressure and heart rate parameters on low-dose carvedilol. 2. Compensated diastolic dysfunction and congestive heart failure. 3. Chronic encephalopathy. 4. Chronic respiratory failure with tracheostomy. PLAN: 1. Await transfer to subacute facility. 2. Stable from cardiovascular standpoint on current regimen. 3. We will continue to follow. Bg Hagen M.D. DR: IOANA JOB#: [id number] CC:
--- NOTE | 2019-05-26 02:00 | NUR ---
NURSE NOTES: Repositioned Vitals remains stable Suctioned Cool to touch NAD at this time
--- NOTE | 2019-05-26 02:00 | Progress Note ---
DATE: 05/25/2019 SUBJECTIVE: Condition remains unchanged. No cardiovascular events. Stable blood pressure parameters and heart rate with no arrhythmias. Adequate saturations on T-tube collar. Exam otherwise unchanged. Medication regimen reviewed. We will continue close observation and adjust therapy as needed based on clinical parameters. Bg Hagen M.D. DR: Stephanie JOB#: [id number] CC:
[2019-05-26] MEDS: Albuterol/Ipratropium 3ml neb HHN SCH ×5 (02:14→19:08)
--- NOTE | 2019-05-26 04:00 | NUR ---
NURSE NOTES: Morning care was done. Cleaned Pt and applied lotion and cream. Changed dressing on wound site. Given tracheal and oral suction. provided oral care. Repositioned. Placed fall and seizure precaution. Will continue to monitor any change of condition.
--- NOTE | 2019-05-26 06:00 | NUR ---
NURSE NOTES: Pt is sleeping on the bed and no sign of acute distress noted. Given tracheal and oral suction. Still noted moderate amount whitish secretion. provided oral care. Changed position. Dr. Beltrán visited and assessed Pt. Placed and fall and seizure precaution. Will continue to care plan.
--- NOTE | 2019-05-26 06:06 | General Progress Note ---
Assessment/Plan Problem List: (1) Seizure ICD Codes: R56.9 - Unspecified convulsions SNOMED: 97283011 (2) Anemia ICD Codes: D64.9 - Anemia, unspecified SNOMED: 895035201 Qualifiers: Qualified Codes: D64.9 - Anemia, unspecified (3) Sepsis ICD Codes: A41.9 - Sepsis, unspecified organism SNOMED: 68978599, 429552333 Qualifiers: Qualified Codes: A41.9 - Sepsis, unspecified organism (4) Respiratory failure with hypoxia ICD Codes: J96.91 - Respiratory failure, unspecified with hypoxia SNOMED: 60035860185841179 Qualifiers: Qualified Codes: J96.21 - Acute and chronic respiratory failure with hypoxia (5) HCAP (healthcare-associated pneumonia) ICD Codes: J18.9 - Pneumonia, unspecified organism SNOMED: 623657474, 379772585 (6) Sacral decubitus ulcer ICD Codes: L89.159 - Pressure ulcer of sacral region, unspecified stage SNOMED: 056569084 (7) HTN (hypertension) ICD Codes: I10 - Essential (primary) hypertension SNOMED: 16817689 (8) Chronic vegetative state ICD Codes: R40.3 - Persistent vegetative state SNOMED: 11178679 (9) Chronic respiratory failure ICD Codes: J96.10 - Chronic respiratory failure, unspecified whether with hypoxia or hypercapnia SNOMED: 27965903 (10) Limited mobility ICD Codes: Z74.09 - Other reduced mobility SNOMED: 3586471 Status: stable, progressing Assessment/Plan: abx per id monitor for bleeding vent as needed resp rx suctioning replace lytes as needed j tube feeds g port to gravity skin care sz rx bowel regime monitor lfts stable for dc to lower level. family only wants [facility] or [facility]- no beds apparently Subjective ROS Limited/Unobtainable: Yes Constitutional: Reports: malaise, weakness HEENT: Reports: no symptoms Cardiovascular: Reports: edema Respiratory: Reports: orthopnea, shortness of breath, sputum Gastrointestinal/Abdominal: Reports: difficulty swallowing Genitourinary: Reports: no symptoms Neurologic/Psychiatric: Reports: pre-existing deficit, seizure Endocrine: Reports: no symptoms Hematologic/Lymphatic: Reports: no symptoms Allergies: Coded Allergies: CODEINE (Verified Allergy, Unknown, HIVES, 09/15/09) All Systems: reviewed and negative except above Subjective no events. mild congestion. no fever or chills. tolerating feeds. labs noted. on iv flucon and inhaled abx. nonverbal at baseline tolerating feeds. no szs. Objective Last 24 Hour Vital Signs Date Time Temp Pulse Resp B/P (MAP) Pulse Ox O2 Delivery O2 Flow Rate FiO2 05/26/19 05:00 72 21 132/56 (81) 100 05/26/19 04:00 98.4 75 19 138/57 (84) 99 05/26/19 04:00 5.0 28 05/26/19 04:00 T-piece 5.0 T-piece 5.0 T-piece 5.0 05/26/19 04:00 90 05/26/19 03:00 76 22 121/50 (73) 98 05/26/19 02:14 77 25 100 T-Piece 5.0 28 78 21 100 05/26/19 02:00 73 22 105/44 (64) 99 05/26/19 01:00 74 22 118/46 (70) 99 05/26/19 00:45 100 T-Piece 5.0 28 05/26/19 00:00 78 05/26/19 00:00 T-piece 5.0 T-piece 5.0 T-piece 5.0 05/26/19 00:00 5.0 28 05/26/19 00:00 99.0 76 24 129/54 (79) 98 05/25/19 23:28 78 18 100 T-Piece 5.0 28 77 18 99 05/25/19 23:00 74 25 110/47 (68) 98 05/25/19 22:00 82 21 142/52 (82) 98 05/25/19 21:39 70 20 100 T-Piece 5.0 28 69 20 99 05/25/19 21:00 69 21 104/45 (64) 100 05/25/19 20:12 71 127/49 05/25/19 20:00 98.3 72 20 127/49 (75) 100 05/25/19 20:00 T-piece 5.0 T-piece 5.0 T-piece 5.0 05/25/19 20:00 5.0 28 05/25/19 19:56 75 05/25/19 19:11 99 T-Piece 5.0 28 05/25/19 19:11 68 18 100 T-Piece 5.0 28 66 18 99 05/25/19 19:00 68 20 138/54 (82) 100 05/25/19 19:00 67 21 110/46 (67) 98 05/25/19 18:00 68 20 138/54 (82) 100 05/25/19 17:00 67 21 115/48 (70) 100 05/25/19 16:00 97.5 68 19 130/52 (78) 100 05/25/19 16:00 T-piece 5.0 T-piece 5.0 T-piece 5.0 05/25/19 16:00 5.0 28 05/25/19 15:58 68 05/25/19 15:00 70 21 137/58 (84) 100 05/25/19 14:52 78 18 100 T-Piece 5.0 28 72 18 100 05/25/19 14:00 70 18 138/60 (86) 100 05/25/19 13:36 100 T-Piece 5.0 28 05/25/19 13:00 69 19 123/54 (77) 100 05/25/19 12:16 73 05/25/19 12:00 T-piece 5.0 T-piece 5.0 T-piece 5.0 05/25/19 12:00 5.0 28 05/25/19 12:00 98.3 71 19 146/58 (87) 100 05/25/19 11:01 74 18 100 T-Piece 5.0 28 74 18 100 05/25/19 11:00 74 21 155/62 (93) 98 05/25/19 10:00 74 22 151/61 (91) 100 05/25/19 09:46 71 22 100 T-Piece 5.0 28 75 21 100 05/25/19 09:00 76 21 146/64 (91) 100 05/25/19 08:22 75 157/64 05/25/19 08:00 98.2 75 21 157/64 (95) 100 05/25/19 08:00 5.0 28 05/25/19 08:00 T-piece 5.0 T-piece 5.0 T-piece 5.0 05/25/19 07:18 99 T-Piece 5.0 28 05/25/19 07:18 75 18 100 T-Piece 5.0 28 81 18 99 05/25/19 07:00 75 20 157/61 (93) 100 05/25/19 06:57 74 Intake and Output 05/25/19 05/26/19 19:00 07:00 Intake Total 2120 ml 1350 ml Output Total 1610 ml 200 ml Balance 510 ml 1150 ml Free Water 300 ml 300 ml IV Total 600 ml Tube Feeding 720 ml 600 ml Other 500 ml 450 ml Output Urine Total 1210 ml Gastric Drainage Total 400 ml 200 ml # Bowel Movements 3 2 Height (Feet): 5 Height (Inches): 3.00 Weight (Pounds): 137 Objective General Appearance: WD/WN, confused. on trach collar Neck: supple Cardiovascular: normal rate, regular rhythm Respiratory/Chest: chest wall non-tender, rhonchi - bilaterally(minimal) Abdomen: normal bowel sounds, non tender, soft, no organomegaly Edema: no edema noted Arm (L), no edema noted Arm (R), no edema noted Leg (L), no edema noted Leg (R), no edema noted Pedal (L), no edema noted Pedal (R), no edema noted Generalized Neurologic: disoriented, unresponsive, aphasia Irvin Beltrán MD May 26, 2019 06:06
--- NOTE | 2019-05-26 07:26 | NUR ---
HAND-OFF: Report given to JEANNINE Honeycutt. Pt is sleeping on the bed and no sign of acute distress noted.
--- NOTE | 2019-05-26 07:30 | NUR ---
NURSE NOTES: LATE ENTRY: RECEIVED REPORT FROM KOSTAS Ramos PT IN BED. OBTUNDED. SR 80 ON MONITOR BP 148/72, RR 20. PUPILS 4MM SLUGGISH. NO S/S OF PAIN, OR SOB. BILATERAL UPPER CONTRACTURED EXTREMITY AND LOWER EXTREMITY FOOT DROP. PUREWICK DRAINING URINE, PERICARE GIVEN. PT TRACH [id number] XTL T-PIECE 28% 5L, SATING 100%. LUNGS BILATERAL RHONCHI. SECRETIONS WHITE , FROTHY. NO BM AT THIS TIME. ABDOMEN ROUND, NON TENDER. BOWEL SOUNDS HYPOACTIVE. SKIN -SEE ASSESSMENT. IV 24G, RT FA, LT HAND 22G, TKO. FALL, SZ, AND CONTACT PRECAUTIONS IN PLACE. BED LOW AND LOCKED IN POSITION. EDUCATED PT ON PLAN OF CARE. WILL CONTINUE TO MONITOR PT.
[2019-05-26] MEDS: Heparin 5000 units/ml inj SUBQ SCH ×2 (09:00→20:16)
--- NOTE | 2019-05-26 09:08 | Pulmonology Progress Note ---
Assessment/Plan Assessment/Plan Impression: Fungemia [facility]+ history of Pneumonia Trach, G tube, Hypertension, Cardiac disease, Dementia, Previous CVA, Seizure disorder, Respiratory failure with hypoxia Anemia, Sacral ulcer renal cyst chronic pulmonary congestion Plan antifungals antimicrobials ID following for changes overall pulmonary status slightly improved monitor imaging for change and monitor secretions Vent PRN but DNR as per family monitor labs for change and recommend further maintain reflux aspiration and monitor feeds elevate head and monitor secretions monitor labs for change monitor vitals; and adjust meds; cards following; tachycardia resolved DNR. No CPR. ICU care reviewed meds noted and updated; neb therapy off load as able prognosis very poor nutrition/fees/ dietary as is; monitor residuals skin care management reviewed difficulty with placement all changes noted and discussed chronic management as able medications/laboratory data/nursing notes/ICU care reviewed in detail note reviewed and edited care discussed with RN and RT time spent x 38minutes Subjective Allergies: Coded Allergies: CODEINE (Verified Allergy, Unknown, HIVES, 09/15/09) Subjective overnight events noted; remains poorly responsive some congestion on isolation; remains off vent for now Fungemia; noted [facility] off vent ICU care issues discussed requires suctioning and has some congestion Objective Last 24 Hour Vital Signs Date Time Temp Pulse Resp B/P (MAP) Pulse Ox O2 Delivery O2 Flow Rate FiO2 05/26/19 07:00 79 20 146/57 (86) 100 05/26/19 06:00 72 20 140/58 (85) 100 05/26/19 05:00 72 21 132/56 (81) 100 05/26/19 04:00 98.4 75 19 138/57 (84) 99 05/26/19 04:00 5.0 28 05/26/19 04:00 T-piece 5.0 T-piece 5.0 T-piece 5.0 05/26/19 04:00 90 05/26/19 03:00 76 22 121/50 (73) 98 05/26/19 02:14 77 25 100 T-Piece 5.0 28 78 21 100 05/26/19 02:00 73 22 105/44 (64) 99 05/26/19 01:00 74 22 118/46 (70) 99 05/26/19 00:45 100 T-Piece 5.0 28 05/26/19 00:00 78 05/26/19 00:00 T-piece 5.0 T-piece 5.0 T-piece 5.0 05/26/19 00:00 5.0 28 05/26/19 00:00 99.0 76 24 129/54 (79) 98 05/25/19 23:28 78 18 100 T-Piece 5.0 28 77 18 99 05/25/19 23:00 74 25 110/47 (68) 98 05/25/19 22:00 82 21 142/52 (82) 98 05/25/19 21:39 70 20 100 T-Piece 5.0 28 69 20 99 05/25/19 21:00 69 21 104/45 (64) 100 05/25/19 20:12 71 127/49 05/25/19 20:00 98.3 72 20 127/49 (75) 100 05/25/19 20:00 T-piece 5.0 T-piece 5.0 T-piece 5.0 05/25/19 20:00 5.0 28 05/25/19 19:56 75 05/25/19 19:11 99 T-Piece 5.0 28 05/25/19 19:11 68 18 100 T-Piece 5.0 28 66 18 99 05/25/19 19:00 68 20 138/54 (82) 100 05/25/19 19:00 67 21 110/46 (67) 98 05/25/19 18:00 68 20 138/54 (82) 100 05/25/19 17:00 67 21 115/48 (70) 100 05/25/19 16:00 97.5 68 19 130/52 (78) 100 05/25/19 16:00 T-piece 5.0 T-piece 5.0 T-piece 5.0 05/25/19 16:00 5.0 28 05/25/19 15:58 68 05/25/19 15:00 70 21 137/58 (84) 100 05/25/19 14:52 78 18 100 T-Piece 5.0 28 72 18 100 05/25/19 14:00 70 18 138/60 (86) 100 05/25/19 13:36 100 T-Piece 5.0 28 05/25/19 13:00 69 19 123/54 (77) 100 05/25/19 12:16 73 05/25/19 12:00 T-piece 5.0 T-piece 5.0 T-piece 5.0 05/25/19 12:00 5.0 28 05/25/19 12:00 98.3 71 19 146/58 (87) 100 05/25/19 11:01 74 18 100 T-Piece 5.0 28 74 18 100 05/25/19 11:00 74 21 155/62 (93) 98 05/25/19 10:00 74 22 151/61 (91) 100 05/25/19 09:46 71 22 100 T-Piece 5.0 28 75 21 100 Intake and Output 05/25/19 05/26/19 19:00 07:00 Intake Total 2120 ml 1470 ml Output Total 1610 ml 900 ml Balance 510 ml 570 ml Free Water 300 ml 300 ml IV Total 600 ml Tube Feeding 720 ml 720 ml Other 500 ml 450 ml Output Urine Total 1210 ml 600 ml Gastric Drainage Total 400 ml 300 ml # Bowel Movements 3 2 Objective WDWN NAD on oxygen off vent reduced breath sounds bilaterally with occ rhonchi [id number] without MRG NABS nontender no HSM no CC trace edema same contractures noted nonfocal nonverbal trach and gt reviewed and edited Current Medications Medications (Trade) Dose Ordered Sig/Maicol Route PRN Reason Start Time Stop Time Status Last Admin Dose Admin Acetaminophen (Tylenol) 650 mg Q4H PRN RECTAL T>100.5 / Mild Pain 05/07/19 09:45 06/06/19 09:44 05/07/19 10:13 Albuterol/ Ipratropium (Albuterol/ Ipratropium) 3 ml Q4HRT HHN 05/21/19 23:00 05/26/19 22:59 05/26/19 06:56 Amikacin Sulfate (Amikin) 500 mg Q12HRT@1000,2200 INH 05/21/19 11:00 05/28/19 10:59 05/25/19 21:39 Atropine Sulfate (Atropine Opth Adriana) 1 drop Q6HR SL 05/11/19 00:00 06/10/19 08:59 05/26/19 05:52 Carvedilol (Coreg) 6.25 mg EVERY 12 HOURS GT 05/23/19 21:00 06/22/19 20:59 05/25/19 20:12 Fluconazole/ Sodium Chloride 200 ml @ 100 mls/hr Q24H IV 05/18/19 12:00 05/28/19 13:00 05/25/19 11:23 Heparin Sodium (Porcine) (Heparin 5000 units/ml) 5,000 units EVERY 12 HOURS SUBQ 05/01/19 21:00 05/31/19 20:59 05/25/19 20:15 Hydralazine HCl (Apresoline) 10 mg Q4H PRN IV For High Blood Pressure 05/11/19 05:45 06/10/19 05:44 05/12/19 00:08 Levetiracetam (Keppra) 500 mg Q12HR GT 05/01/19 21:00 05/28/19 08:59 05/25/19 20:12 Magnesium Oxide (Mag-Ox 400mg) 400 mg THREE TIMES A DAY JT 05/24/19 13:00 06/23/19 12:59 05/25/19 17:10 Pantoprazole (Protonix) 40 mg DAILY IVP 05/15/19 18:15 06/14/19 18:14 05/25/19 08:22 Amaury Chan MD May 26, 2019 09:08
[2019-05-26] MEDS: levETIRAcetam 500mg/5ml Liquid GT SCH ×2 (09:54→20:17)
[2019-05-26] MEDS: Pantoprazole Inj IVP SCH (09:54)
[2019-05-26] MEDS: Carvedilol 6.25mg Tab GT SCH ×2 (09:55→20:18)
[2019-05-26] MEDS: Magnesium Oxide 400mg tab JT SCH ×3 (09:55→17:50)
--- NOTE | 2019-05-26 10:27 | Nephrology Progress Note ---
Assessment/Plan Problem List: (1) Acute renal failure (ARF) Assessment: Cr stable (2) Chronic respiratory failure (3) Anemia (4) Sepsis Assessment Acute renal failure Respiratory failure - Trach Low Mag- Low k , Low Na Anemia UTI / Sepsis Proteinuria / HypoAlbuminemia high Trigs Sz decubs bed bound DNR Plan on Coreg now Transfused 05/09 has JT bolus Albumin as needed K and Mag and Phos supplement as needed Hydrate as needed Urine studies avoid Nephrotoxics mag K Phos supplements as needed monitor renal parameters Subjective ROS Limited/Unobtainable: Yes Objective Objective Last 24 Hour Vital Signs Date Time Temp Pulse Resp B/P (MAP) Pulse Ox O2 Delivery O2 Flow Rate FiO2 05/26/19 09:55 82 146/60 05/26/19 07:00 79 20 146/57 (86) 100 05/26/19 06:00 72 20 140/58 (85) 100 05/26/19 05:00 72 21 132/56 (81) 100 05/26/19 04:00 98.4 75 19 138/57 (84) 99 05/26/19 04:00 5.0 28 05/26/19 04:00 T-piece 5.0 T-piece 5.0 T-piece 5.0 05/26/19 04:00 90 05/26/19 03:00 76 22 121/50 (73) 98 05/26/19 02:14 77 25 100 T-Piece 5.0 28 78 21 100 05/26/19 02:00 73 22 105/44 (64) 99 05/26/19 01:00 74 22 118/46 (70) 99 05/26/19 00:45 100 T-Piece 5.0 28 05/26/19 00:00 78 05/26/19 00:00 T-piece 5.0 T-piece 5.0 T-piece 5.0 05/26/19 00:00 5.0 28 05/26/19 00:00 99.0 76 24 129/54 (79) 98 05/25/19 23:28 78 18 100 T-Piece 5.0 28 77 18 99 05/25/19 23:00 74 25 110/47 (68) 98 05/25/19 22:00 82 21 142/52 (82) 98 05/25/19 21:39 70 20 100 T-Piece 5.0 28 69 20 99 2/24/20 21:00 69 21 104/45 (64) 100 05/25/19 20:12 71 127/49 05/25/19 20:00 98.3 72 20 127/49 (75) 100 05/25/19 20:00 T-piece 5.0 T-piece 5.0 T-piece 5.0 05/25/19 20:00 5.0 28 05/25/19 19:56 75 05/25/19 19:11 99 T-Piece 5.0 28 05/25/19 19:11 68 18 100 T-Piece 5.0 28 66 18 99 05/25/19 19:00 68 20 138/54 (82) 100 05/25/19 19:00 67 21 110/46 (67) 98 05/25/19 18:00 68 20 138/54 (82) 100 05/25/19 17:00 67 21 115/48 (70) 100 05/25/19 16:00 97.5 68 19 130/52 (78) 100 05/25/19 16:00 T-piece 5.0 T-piece 5.0 T-piece 5.0 05/25/19 16:00 5.0 28 05/25/19 15:58 68 05/25/19 15:00 70 21 137/58 (84) 100 05/25/19 14:52 78 18 100 T-Piece 5.0 28 72 18 100 05/25/19 14:00 70 18 138/60 (86) 100 05/25/19 13:36 100 T-Piece 5.0 28 05/25/19 13:00 69 19 123/54 (77) 100 05/25/19 12:16 73 05/25/19 12:00 T-piece 5.0 T-piece 5.0 T-piece 5.0 05/25/19 12:00 5.0 28 05/25/19 12:00 98.3 71 19 146/58 (87) 100 05/25/19 11:01 74 18 100 T-Piece 5.0 28 74 18 100 05/25/19 11:00 74 21 155/62 (93) 98 Intake and Output 05/25/19 05/26/19 19:00 07:00 Intake Total 2120 ml 1470 ml Output Total 1610 ml 900 ml Balance 510 ml 570 ml Free Water 300 ml 300 ml IV Total 600 ml Tube Feeding 720 ml 720 ml Other 500 ml 450 ml Output Urine Total 1210 ml 600 ml Gastric Drainage Total 400 ml 300 ml # Bowel Movements 3 2 Height (Feet): 5 Height (Inches): 3.00 Weight (Pounds): 135 General Appearance: no apparent distress EENT: other - Trach to O2 Cardiovascular: normal rate Respiratory/Chest: decreased breath sounds Abdomen: distended Objective no change Eric Cortez MD May 26, 2019 10:27
[2019-05-26] MEDS: Amikacin for Inhalation 2ML INH SCH ×2 (11:02→21:45)
--- NOTE | 2019-05-26 11:15 | Infectious Diseases Prog Note ---
"Assessment/Plan Assessment/Plan antibiotics : inhaled amikacin 2..20- fluconazole A 1. delano parapsilosis fungemia 2. klebsiella sepsis s/p rx s/p catheter removal 3. respiratory failure 4. hypertension 5. CVA 6. dementia 7. rectal VRE colonization 8. leucocytosis resolved 9. pseudomonas | providencia pneumonia P 1. continue inhaled amikacin 1 more days 2. continue fluconazole 2 more days 3. will follow up cultures Subjective ROS Limited/Unobtainable: Yes Allergies: Coded Allergies: CODEINE (Verified Allergy, Unknown, HIVES, 09/15/09) Objective Vital Signs Last 24 Hour Vital Signs Date Time Temp Pulse Resp B/P (MAP) Pulse Ox O2 Delivery O2 Flow Rate FiO2 05/26/19 09:55 82 146/60 05/26/19 08:00 76 05/26/19 07:00 79 20 146/57 (86) 100 05/26/19 06:00 72 20 140/58 (85) 100 05/26/19 05:00 72 21 132/56 (81) 100 05/26/19 04:00 98.4 75 19 138/57 (84) 99 05/26/19 04:00 5.0 28 05/26/19 04:00 T-piece 5.0 T-piece 5.0 T-piece 5.0 05/26/19 04:00 90 05/26/19 03:00 76 22 121/50 (73) 98 05/26/19 02:14 77 25 100 T-Piece 5.0 28 78 21 100 05/26/19 02:00 73 22 105/44 (64) 99 05/26/19 01:00 74 22 118/46 (70) 99 05/26/19 00:45 100 T-Piece 5.0 28 05/26/19 00:00 78 05/26/19 00:00 T-piece 5.0 T-piece 5.0 T-piece 5.0 05/26/19 00:00 5.0 28 05/26/19 00:00 99.0 76 24 129/54 (79) 98 05/25/19 23:28 78 18 100 T-Piece 5.0 28 77 18 99 05/25/19 23:00 74 25 110/47 (68) 98 05/25/19 22:00 82 21 142/52 (82) 98 05/25/19 21:39 70 20 100 T-Piece 5.0 28 69 20 99 05/25/19 21:00 69 21 104/45 (64) 100 05/25/19 20:12 71 127/49 05/25/19 20:00 98.3 72 20 127/49 (75) 100 05/25/19 20:00 T-piece 5.0 T-piece 5.0 T-piece 5.0 05/25/19 20:00 5.0 28 05/25/19 19:56 75 05/25/19 19:11 99 T-Piece 5.0 28 05/25/19 19:11 68 18 100 T-Piece 5.0 28 66 18 99 05/25/19 19:00 68 20 138/54 (82) 100 05/25/19 19:00 67 21 110/46 (67) 98 05/25/19 18:00 68 20 138/54 (82) 100 05/25/19 17:00 67 21 115/48 (70) 100 05/25/19 16:00 97.5 68 19 130/52 (78) 100 05/25/19 16:00 T-piece 5.0 T-piece 5.0 T-piece 5.0 05/25/19 16:00 5.0 28 05/25/19 15:58 68 05/25/19 15:00 70 21 137/58 (84) 100 05/25/19 14:52 78 18 100 T-Piece 5.0 28 72 18 100 05/25/19 14:00 70 18 138/60 (86) 100 05/25/19 13:36 100 T-Piece 5.0 28 05/25/19 13:00 69 19 123/54 (77) 100 05/25/19 12:16 73 05/25/19 12:00 T-piece 5.0 T-piece 5.0 T-piece 5.0 05/25/19 12:00 5.0 28 05/25/19 12:00 98.3 71 19 146/58 (87) 100 Height (Feet): 5 Height (Inches): 3.00 Weight (Pounds): 135 HEENT: status post trach Respiratory/Chest: crackles/rales, rhonchi - bilaterally Cardiovascular: normal rate, regular rhythm, no gallop/murmur Abdomen: soft, non tender, other - GT Extremities: no edema Current Medications Medications (Trade) Dose Ordered Sig/Maicol Route PRN Reason Start Time Stop Time Status Last Admin Dose Admin Acetaminophen (Tylenol) 650 mg Q4H PRN RECTAL T>100.5 / Mild Pain 05/07/19 09:45 06/06/19 09:44 05/07/19 10:13 Albuterol/ Ipratropium (Albuterol/ Ipratropium) 3 ml Q4HRT HHN 05/21/19 23:00 05/26/19 22:59 05/26/19 06:56 Amikacin Sulfate (Amikin) 500 mg Q12HRT@1000,2200 INH 05/21/19 11:00 05/28/19 10:59 05/26/19 11:02 Atropine Sulfate (Atropine Opth Adriana) 1 drop Q6HR SL 05/11/19 00:00 06/10/19 08:59 05/26/19 05:52 Carvedilol (Coreg) 6.25 mg EVERY 12 HOURS GT 05/23/19 21:00 06/22/19 20:59 05/26/19 09:55 Fluconazole/ Sodium Chloride 200 ml @ 100 mls/hr Q24H IV 05/18/19 12:00 05/28/19 13:00 05/25/19 11:23 Heparin Sodium (Porcine) (Heparin 5000 units/ml) 5,000 units EVERY 12 HOURS SUBQ 05/01/19 21:00 05/31/19 20:59 05/25/19 20:15 Hydralazine HCl (Apresoline) 10 mg Q4H PRN IV For High Blood Pressure 05/11/19 05:45 06/10/19 05:44 05/12/19 00:08 Levetiracetam (Keppra) 500 mg Q12HR GT 05/01/19 21:00 05/28/19 08:59 05/26/19 09:54 Magnesium Oxide (Mag-Ox 400mg) 400 mg THREE TIMES A DAY JT 05/24/19 13:00 06/23/19 12:59 05/26/19 09:55 Pantoprazole (Protonix) 40 mg DAILY IVP 05/15/19 18:15 06/14/19 18:14 05/26/19 09:54 Geovany Yang MD May 26, 2019 11:15"
--- NOTE | 2019-05-26 11:28 | NUR ---
*-* DISCHARGE PLANING *-* PATIENT HAS BEEN REFERRED TO: [facility] P: [phone] F; [phone] [facility] P; [phone] F: [phone] [facility] P: [phone] F; [phone] [facility] p: [phone] f: [phone] [facility] p: [phone] f; [phone] [facility] p; [phone] f: [phone] efax:[phone] [facility] p: [phone] f: [phone] efax: [phone] [facility] P:[phone] F: [phone] [facility] P: [phone] F: [phone] [facility] P: [phone] F: [phone] EFAX: [phone]
--- NOTE | 2019-05-26 12:00 | NUR ---
NURSE NOTES: LATE ENTRY: PT IN BED. OBTUNDED. SR 81 ON MONITOR BP 154/59, RR 20. PUPILS 4MM SLUGGISH. NO S/S OF PAIN, OR SOB. PUREWICK DRAINING URINE, PERICARE GIVEN. PT TRACH [id number] XTL T-PIECE 28% 5L, SATING 100%. LUNGS BILATERAL RHONCHI. SECRETIONS WHITE , FROTHY. NO BM AT THIS TIME. ABDOMEN ROUND, NON TENDER. BOWEL SOUNDS HYPOACTIVE. SKIN -SEE ASSESSMENT. IV 24G, RT FA, LT HAND 22G, TKO. PT CLEANED AND SUCTION PROVIDED. BED LOW AND LOCKED IN POSITION. WILL CONTINUE TO MONITOR PT.
--- NOTE | 2019-05-26 15:31 | NUR ---
*-* DISCHARGE PLANNING *-* PATIENT HAS BEEN REFERRED TO: [facility] P: [phone] F: [phone] [facility] P: [phone] F: [phone] [facility] P: [phone] F: [phone] [facility] [address] P: [phone] F: [phone] [facility] P: [phone] F: [phone] [facility] P: [phone] F: [phone] [facility] P: [phone] F: [phone] [facility] P: [phone] F: [phone] [facility] P: [phone] F: [phone] [facility] P; [phone] F: [phone]
--- NOTE | 2019-05-26 16:00 | NUR ---
NURSE NOTES: LATE ENTRY: PT IN BED. OBTUNDED. LUNGS BILATERAL RHONCHI. SECRETIONS WHITE , FROTHY. ONE BM, BROWN AND LOOSE. IV 24G, RT FA, LT HAND 22G, TKO. HYGIENE, FULL BATH AND LINEN CHANGED. DRESSINGS REPLACED. CHANGED PADDED SIDE RAILS. ORAL CARE GIVEN. BED LOW AND LOCKED IN POSITION. PT REPOSITIONED.WILL CONTINUE TO MONITOR PT.
--- NOTE | 2019-05-26 16:18 | General Progress Note ---
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 - Anemia with OB (-) stools - Resp failure, s/p Trach - OBS, vegetative obtunded unresponsive state, bedbound with contracted extremities - h/o minor GJ tube site irritation - poor Prognosis Recommendations - No plans for immune suppression at this time (risk benefit ratio in favor of holding off Rx) - abx per ID - PPI daily - Cristian BID - antibiotic ointment to GJT site PRN - aspiration precautions - elevate HOB - Vital AF 1.2 - transfuse to keep Hg > 7 - J tube feeds - G tube ---> LIS Subjective Allergies: Coded Allergies: CODEINE (Verified Allergy, Unknown, HIVES, 09/15/09) Subjective above noted d/w RN tolerating TF (+) BM LFT lower Objective Last 24 Hour Vital Signs Date Time Temp Pulse Resp B/P (MAP) Pulse Ox O2 Delivery O2 Flow Rate FiO2 05/26/19 16:00 5.0 28 05/26/19 16:00 T-piece 5.0 T-piece 5.0 T-piece 5.0 05/26/19 15:04 75 22 100 T-Piece 5.0 28 77 22 98 05/26/19 15:00 76 21 137/42 (73) 100 05/26/19 14:19 100 T-Piece 5.0 28 05/26/19 14:00 98.6 82 20 158/66 (96) 99 05/26/19 13:00 78 20 145/51 (82) 100 05/26/19 12:00 5.0 28 05/26/19 12:00 78 20 154/51 (85) 100 05/26/19 12:00 77 05/26/19 12:00 T-piece 5.0 T-piece 5.0 T-piece 5.0 05/26/19 11:26 78 24 100 T-Piece 5.0 28 75 20 100 05/26/19 11:02 74 22 100 T-Piece 5.0 28 76 22 100 05/26/19 11:00 78 21 154/59 (90) 99 05/26/19 10:00 80 20 134/94 (107) 100 05/26/19 09:55 82 146/60 05/26/19 09:00 98.0 81 21 143/67 (92) 100 05/26/19 08:00 5.0 28 05/26/19 08:00 T-piece 5.0 T-piece 5.0 T-piece 5.0 05/26/19 08:00 76 05/26/19 08:00 81 20 146/60 (88) 100 05/26/19 07:06 72 22 100 T-Piece 5.0 28 69 20 100 05/26/19 07:05 100 T-Piece 5.0 28 05/26/19 07:00 79 20 146/57 (86) 100 05/26/19 06:00 72 20 140/58 (85) 100 05/26/19 05:00 72 21 132/56 (81) 100 05/26/19 04:00 98.4 75 19 138/57 (84) 99 05/26/19 04:00 5.0 28 05/26/19 04:00 T-piece 5.0 T-piece 5.0 T-piece 5.0 05/26/19 04:00 90 05/26/19 03:00 76 22 121/50 (73) 98 05/26/19 02:14 77 25 100 T-Piece 5.0 28 78 21 100 05/26/19 02:00 73 22 105/44 (64) 99 05/26/19 01:00 74 22 118/46 (70) 99 05/26/19 00:45 100 T-Piece 5.0 28 05/26/19 00:00 78 05/26/19 00:00 T-piece 5.0 T-piece 5.0 T-piece 5.0 05/26/19 00:00 5.0 28 05/26/19 00:00 99.0 76 24 129/54 (79) 98 05/25/19 23:28 78 18 100 T-Piece 5.0 28 77 18 99 05/25/19 23:00 74 25 110/47 (68) 98 05/25/19 22:00 82 21 142/52 (82) 98 05/25/19 21:39 70 20 100 T-Piece 5.0 28 69 20 99 05/25/19 21:00 69 21 104/45 (64) 100 05/25/19 20:12 71 127/49 05/25/19 20:00 98.3 72 20 127/49 (75) 100 05/25/19 20:00 T-piece 5.0 T-piece 5.0 T-piece 5.0 05/25/19 20:00 5.0 28 05/25/19 19:56 75 05/25/19 19:11 99 T-Piece 5.0 28 05/25/19 19:11 68 18 100 T-Piece 5.0 28 66 18 99 05/25/19 19:00 68 20 138/54 (82) 100 05/25/19 19:00 67 21 110/46 (67) 98 05/25/19 18:00 68 20 138/54 (82) 100 05/25/19 17:00 67 21 115/48 (70) 100 Intake and Output 05/25/19 05/26/19 19:00 07:00 Intake Total 2120 ml 1470 ml Output Total 1610 ml 900 ml Balance 510 ml 570 ml Free Water 300 ml 300 ml IV Total 600 ml Tube Feeding 720 ml 720 ml Other 500 ml 450 ml Output Urine Total 1210 ml 600 ml Gastric Drainage Total 400 ml 300 ml # Bowel Movements 3 2 Height (Feet): 5 Height (Inches): 3.00 Weight (Pounds): 135 Objective Debilitated AA woman non-verbal, obtunded NCAT (+) trach coarse BS RR obese abd, (+) GJT, (+) (L) trunk edema no edema (+) contractured extremities Celio Vaughan MD May 26, 2019 16:18
--- NOTE | 2019-05-26 19:00 | NUR ---
HAND-OFF: Report given to KOSTAS Ramos PT IN NO ACUTE DISTRESS.
--- NOTE | 2019-05-26 19:30 | NUR ---
NURSE NOTES: Received report from JEANNINE Miller. Pt is awake and able to respond to tactile stimuli. Non-verbal and not able to follow commands. Opens eyes spontaneously. Pt has T-piece with cool aerosol 28%, 5L. O2 sat 100%. Small amount of white thin secretion from T-piece and mouth. Pt coughs at times. GJ tube in place. Via J tube, pt is receiving Vital AF 1.2 at 60cc/hr. G tube is connected to low intermittent suction, draining white yellow drainage. Pure-wick in place draining yellow urine via suction. IV to right FA G24 and right hand G22 patent and asymptomatic. Bed in lowest position. Side rails up x3. Will resume plan of care.
--- NOTE | 2019-05-26 22:00 | NUR ---
NURSE NOTES: Patient sleeping, arousable with light stimulation. Suctioned and oral care provided. Moderate amount of thick clear secretions obtained. Blood Pressure 132/40 and SPO2 100%. patient repositioned. will continue to monitor.
--- NOTE | 2019-05-26 23:15 | Progress Note ---
DATE: 05/26/2019 CARDIOLOGY PROGRESS NOTE SUBJECTIVE: Awaiting disposition. Mildly congested at times on trach collar. No distress, nonverbal at baseline. PHYSICAL EXAMINATION: VITAL SIGNS: Blood pressure 132/56, pulse 72, respiratory rate 21. LUNGS: Clear. CARDIAC: Regular. ABDOMEN: Soft. GJ-tube intact. EXTREMITIES: No edema. MEDICATIONS: Medication regimen reviewed. IMPRESSION: 1. Stable cardiovascular parameters on current medication regimen. 2. Continue trach care, enteral feeds by GJ tube. 3. Skin care. 4. Monitoring of cardiorenal function. Bg Hagen M.D. DR: Stephanie JOB#: [id number] CC:
[2019-05-27] VITALS (25 sets, daily range): BP systolic 99–155; BP diastolic 26–78
--- NOTE | 2019-05-27 | NUR ---
Patient asleep arousable with light stimulation but nonverbal. Respirations even and tolerating T-Piece FiO2 28% on 5L with SPO2 100%. Patient repositioned and oral care provided. patient remains afebrile 98.1, BP stable. 10mL residual obtained from Gtube. will continue to monitor.
[2019-05-27] MEDS: Albuterol/Ipratropium 3ml neb HHN SCH ×6 (02:42→23:19)
--- NOTE | 2019-05-27 04:00 | NUR ---
NURSE NOTES: Patient given bed bath. Oral care and fatou care provided. VSS. Patient remains afebrile. No residual noted from Gtube. Abdomen round, nontender, with hypoactive bowel sounds x4 quadrants. Patient had small soft brown bowel movement. Optiform dressings changed. will continue to monitor.
--- NOTE | 2019-05-27 07:13 | NUR ---
HAND-OFF: Report given to JEANNINE Robertson.
--- NOTE | 2019-05-27 07:14 | NUR ---
NURSE NOTES: Received patient from Bjorn RN/La Nena RN. Patient is obtunded, Sinus Rhythm on the Heart Monitor, HR 78. Receiving oxygen via Shiley 6 XLT, 5L/min, FiO2 28%, cool aerosol. G-tube/Jtube is intact, J-tube is receiving Vital AF 1.2 at 60cc/hr, G-tube is draining via low intermittent suctioning. IV site is left hand 22g and right forearm 24g, both intact and patent. Purewick is intact and draining. Bed is locked, placed in lowest position, side rails up x3, bed alarm on, call light within reach. Will continue to monitor.
--- NOTE | 2019-05-27 07:28 | General Progress Note ---
Assessment/Plan Problem List: (1) Seizure ICD Codes: R56.9 - Unspecified convulsions SNOMED: 12724339 (2) Anemia ICD Codes: D64.9 - Anemia, unspecified SNOMED: 495504381 Qualifiers: Qualified Codes: D64.9 - Anemia, unspecified (3) Sepsis ICD Codes: A41.9 - Sepsis, unspecified organism SNOMED: 17205868, 717925131 Qualifiers: Qualified Codes: A41.9 - Sepsis, unspecified organism (4) Respiratory failure with hypoxia ICD Codes: J96.91 - Respiratory failure, unspecified with hypoxia SNOMED: 01543537286237761 Qualifiers: Qualified Codes: J96.21 - Acute and chronic respiratory failure with hypoxia (5) HCAP (healthcare-associated pneumonia) ICD Codes: J18.9 - Pneumonia, unspecified organism SNOMED: 854523223, 383497711 (6) Sacral decubitus ulcer ICD Codes: L89.159 - Pressure ulcer of sacral region, unspecified stage SNOMED: 012437806 (7) HTN (hypertension) ICD Codes: I10 - Essential (primary) hypertension SNOMED: 47793148 (8) Chronic vegetative state ICD Codes: R40.3 - Persistent vegetative state SNOMED: 74197714 (9) Chronic respiratory failure ICD Codes: J96.10 - Chronic respiratory failure, unspecified whether with hypoxia or hypercapnia SNOMED: 23343871 (10) Limited mobility ICD Codes: Z74.09 - Other reduced mobility SNOMED: 9329349 Status: stable, progressing Assessment/Plan: abx per id monitor for bleeding vent as needed resp rx suctioning replace lytes as needed- labs pending for today j tube feeds g port to gravity skin care sz rx bowel regime monitor lfts stable for dc to lower level. family only wants [facility]- no beds apparently Subjective ROS Limited/Unobtainable: No Constitutional: Reports: malaise, weakness HEENT: Reports: no symptoms Cardiovascular: Reports: no symptoms Respiratory: Reports: cough, sputum Gastrointestinal/Abdominal: Reports: difficulty swallowing Genitourinary: Reports: no symptoms Neurologic/Psychiatric: Reports: pre-existing deficit, seizure Endocrine: Reports: no symptoms Hematologic/Lymphatic: Reports: anemia Allergies: Coded Allergies: CODEINE (Verified Allergy, Unknown, HIVES, 09/15/09) All Systems: reviewed and negative except above Subjective no events. mild congestion- stable. no fever or chills. tolerating feeds. on iv flucon and inhaled abx. nonverbal at baseline tolerating feeds. no szs. Objective Last 24 Hour Vital Signs Date Time Temp Pulse Resp B/P (MAP) Pulse Ox O2 Delivery O2 Flow Rate FiO2 05/27/19 07:21 100 T-Piece 5.0 28 05/27/19 07:19 77 19 100 T-Piece 5.0 28 78 19 100 05/27/19 07:00 76 22 140/49 (79) 100 05/27/19 06:00 77 18 142/43 (76) 100 05/27/19 05:00 75 18 140/53 (82) 100 05/27/19 04:00 98.2 78 18 140/60 (86) 100 05/27/19 04:00 5.0 28 05/27/19 04:00 76 05/27/19 04:00 T-piece 5.0 T-piece 5.0 T-piece 5.0 05/27/19 03:00 77 20 124/30 (61) 100 05/27/19 02:35 75 22 100 T-Piece 5.0 28 79 21 100 05/27/19 02:00 76 18 129/35 (66) 100 05/27/19 01:02 99 T-Piece 5.0 28 05/27/19 01:00 76 21 125/38 (67) 100 05/27/19 00:00 74 05/27/19 00:00 T-piece 5.0 T-piece 5.0 T-piece 5.0 05/27/19 00:00 98.6 78 21 138/44 (75) 100 05/27/19 00:00 5.0 28 05/26/19 23:00 75 21 130/36 (67) 100 05/26/19 22:00 75 21 132/40 (70) 100 05/26/19 21:45 75 21 100 T-Piece 5.0 28 74 19 100 05/26/19 21:00 72 19 103/38 (59) 100 05/26/19 20:18 76 138/36 05/26/19 20:00 78 05/26/19 20:00 5.0 28 05/26/19 20:00 76 20 138/36 (70) 100 05/26/19 20:00 T-piece 5.0 T-piece 5.0 T-piece 5.0 05/26/19 19:08 79 22 100 T-Piece 5.0 28 78 21 99 05/26/19 19:08 99 T-Piece 5.0 28 05/26/19 19:00 98.1 80 20 154/52 (86) 100 05/26/19 18:00 67 18 153/51 (85) 100 05/26/19 17:00 75 21 149/57 (87) 100 05/26/19 16:00 75 05/26/19 16:00 74 19 139/46 (77) 100 05/26/19 16:00 5.0 28 05/26/19 16:00 T-piece 5.0 T-piece 5.0 T-piece 5.0 05/26/19 15:04 75 22 100 T-Piece 5.0 28 77 22 98 05/26/19 15:00 76 21 137/42 (73) 100 05/26/19 14:19 100 T-Piece 5.0 28 05/26/19 14:00 98.6 82 20 158/66 (96) 99 05/26/19 13:00 78 20 145/51 (82) 100 05/26/19 12:00 5.0 28 05/26/19 12:00 78 20 154/51 (85) 100 05/26/19 12:00 77 05/26/19 12:00 T-piece 5.0 T-piece 5.0 T-piece 5.0 05/26/19 11:26 78 24 100 T-Piece 5.0 28 75 20 100 05/26/19 11:02 74 22 100 T-Piece 5.0 28 76 22 100 05/26/19 11:00 78 21 154/59 (90) 99 05/26/19 10:00 80 20 134/94 (107) 100 05/26/19 09:55 82 146/60 05/26/19 09:00 98.0 81 21 143/67 (92) 100 05/26/19 08:00 5.0 28 05/26/19 08:00 T-piece 5.0 T-piece 5.0 T-piece 5.0 05/26/19 08:00 76 05/26/19 08:00 81 20 146/60 (88) 100 Intake and Output 05/26/19 05/27/19 18:59 06:59 Intake Total 1670 ml 920 ml Output Total 570 ml 900 ml Balance 1100 ml 20 ml IV Total 200 ml Tube Feeding 720 ml 720 ml Other 750 ml 200 ml Output Urine Total 570 ml 900 ml # Bowel Movements 8 1 Height (Feet): 5 Height (Inches): 3.00 Weight (Pounds): 133 Objective General Appearance: WD/WN, confused. on trach collar Neck: supple Cardiovascular: normal rate, regular rhythm Respiratory/Chest: chest wall non-tender, rhonchi - bilaterally(minimal) Abdomen: normal bowel sounds, non tender, soft, no organomegaly Edema: no edema noted Arm (L), no edema noted Arm (R), no edema noted Leg (L), no edema noted Leg (R), no edema noted Pedal (L), no edema noted Pedal (R), no edema noted Generalized Neurologic: disoriented, unresponsive, aphasia Irvin Beltrán MD May 27, 2019 07:28
[2019-05-27] MEDS: levETIRAcetam 500mg/5ml Liquid GT SCH ×2 (08:34→20:51)
[2019-05-27] MEDS: Pantoprazole Inj IVP SCH (08:34)
[2019-05-27] MEDS: Carvedilol 6.25mg Tab GT SCH ×2 (08:35→20:51)
[2019-05-27] MEDS: Magnesium Oxide 400mg tab JT SCH ×3 (08:35→17:39)
[2019-05-27] MEDS: Heparin 5000 units/ml inj SUBQ SCH ×2 (08:36→20:52)
--- NOTE | 2019-05-27 08:59 | NUR ---
NURSE NOTES: Turned and repositioned patient, Oral care given, tracheal suctioning done. On assessment BP was 148/50, prescribed Carvedilol 6.25mg given via G-tube. Patient showing no signs of distress at this time no facial grimace. Will continue to monitor.
[2019-05-27 09:07] LABS: ALANINE AMINOTRANSFERASE 47 U/L (12-78); ALBUMIN 2.6 G/DL (3.4-5.0); ALBUMIN/GLOBULIN RATIO 0.5 (1.0-2.7); ALKALINE PHOSPHATASE 166 U/L (46-116); ANION GAP 10 mmol/L (5-15); ASPARTATE AMINO TRANSFERASE 28 U/L (15-37); BILIRUBIN,TOTAL 0.2 MG/DL (0.2-1.0); BLOOD UREA NITROGEN 37 mg/dL (7-18); CALCIUM 9.5 MG/DL (8.5-10.1); CARBON DIOXIDE 28 MMOL/L (21-32); CHLORIDE 106 MMOL/L (98-107); CREATININE 0.8 MG/DL (0.55-1.30); POTASSIUM 4.6 MMOL/L (3.5-5.1); SODIUM 144 MMOL/L (136-145)
[2019-05-27 09:16] LABS: BASOPHILS % (AUTO) 1.1 % (0.0-2.0); EOSINOPHILS % (AUTO) 4.3 % (0.0-3.0); HEMATOCRIT 25.4 % (37.0-47.0); HEMOGLOBIN 8.3 G/DL (12.0-16.0); LYMPHOCYTES % (AUTO) 28.3 % (20.0-45.0); MEAN CORPUSCULAR VOLUME 87 FL (80-99); MONOCYTES % (AUTO) 4.3 % (1.0-10.0); NEUTROPHILS % (AUTO) 62.1 % (45.0-75.0); PLATELET COUNT 356 K/UL (150-450); RED BLOOD COUNT 2.92 M/UL (4.20-5.40); WHITE BLOOD COUNT 10.1 K/UL (4.8-10.8)
[2019-05-27] MEDS: Amikacin for Inhalation 2ML INH SCH (10:15)
--- NOTE | 2019-05-27 10:27 | Infectious Diseases Prog Note ---
"Assessment/Plan Assessment/Plan antibiotics : inhaled amikacin 2.20.20- fluconazole A 1. delano parapsilosis fungemia 2. klebsiella sepsis s/p rx s/p catheter removal 3. respiratory failure 4. hypertension 5. CVA 6. dementia 7. rectal VRE colonization 8. leucocytosis resolved 9. pseudomonas | providencia pneumonia s/p rx P 1. d/c inhaled amikacin 2. continue fluconazole 1 more day 3. will follow up cultures Subjective ROS Limited/Unobtainable: Yes Allergies: Coded Allergies: CODEINE (Verified Allergy, Unknown, HIVES, 09/15/09) Objective Vital Signs Last 24 Hour Vital Signs Date Time Temp Pulse Resp B/P (MAP) Pulse Ox O2 Delivery O2 Flow Rate FiO2 05/27/19 10:14 76 22 100 T-Piece 5.0 28 77 18 99 05/27/19 09:30 76 19 127/71 (89) 100 05/27/19 09:00 81 19 131/32 (65) 100 05/27/19 08:35 78 148/50 05/27/19 08:00 98.0 78 18 134/47 (76) 100 05/27/19 08:00 5.0 28 05/27/19 08:00 T-piece 5.0 T-piece 5.0 T-piece 5.0 05/27/19 07:57 78 05/27/19 07:21 100 T-Piece 5.0 28 05/27/19 07:19 77 19 100 T-Piece 5.0 28 78 19 100 05/27/19 07:00 76 22 140/49 (79) 100 05/27/19 06:00 77 18 142/43 (76) 100 05/27/19 05:00 75 18 140/53 (82) 100 05/27/19 04:00 98.2 78 18 140/60 (86) 100 05/27/19 04:00 5.0 28 05/27/19 04:00 76 05/27/19 04:00 T-piece 5.0 T-piece 5.0 T-piece 5.0 05/27/19 03:00 77 20 124/30 (61) 100 05/27/19 02:35 75 22 100 T-Piece 5.0 28 79 21 100 05/27/19 02:00 76 18 129/35 (66) 100 05/27/19 01:02 99 T-Piece 5.0 28 05/27/19 01:00 76 21 125/38 (67) 100 05/27/19 00:00 74 05/27/19 00:00 T-piece 5.0 T-piece 5.0 T-piece 5.0 05/27/19 00:00 98.6 78 21 138/44 (75) 100 05/27/19 00:00 5.0 28 05/26/19 23:00 75 21 130/36 (67) 100 05/26/19 22:00 75 21 132/40 (70) 100 05/26/19 21:45 75 21 100 T-Piece 5.0 28 74 19 100 05/26/19 21:00 72 19 103/38 (59) 100 05/26/19 20:18 76 138/36 05/26/19 20:00 78 05/26/19 20:00 5.0 28 05/26/19 20:00 76 20 138/36 (70) 100 05/26/19 20:00 T-piece 5.0 T-piece 5.0 T-piece 5.0 05/26/19 19:08 79 22 100 T-Piece 5.0 28 78 21 99 05/26/19 19:08 99 T-Piece 5.0 28 05/26/19 19:00 98.1 80 20 154/52 (86) 100 05/26/19 18:00 67 18 153/51 (85) 100 05/26/19 17:00 75 21 149/57 (87) 100 05/26/19 16:00 75 05/26/19 16:00 74 19 139/46 (77) 100 05/26/19 16:00 5.0 28 05/26/19 16:00 T-piece 5.0 T-piece 5.0 T-piece 5.0 05/26/19 15:04 75 22 100 T-Piece 5.0 28 77 22 98 05/26/19 15:00 76 21 137/42 (73) 100 05/26/19 14:19 100 T-Piece 5.0 28 05/26/19 14:00 98.6 82 20 158/66 (96) 99 05/26/19 13:00 78 20 145/51 (82) 100 05/26/19 12:00 5.0 28 05/26/19 12:00 78 20 154/51 (85) 100 05/26/19 12:00 77 05/26/19 12:00 T-piece 5.0 T-piece 5.0 T-piece 5.0 05/26/19 11:26 78 24 100 T-Piece 5.0 28 75 20 100 05/26/19 11:02 74 22 100 T-Piece 5.0 28 76 22 100 05/26/19 11:00 78 21 154/59 (90) 99 Height (Feet): 5 Height (Inches): 3.00 Weight (Pounds): 133 HEENT: status post trach Respiratory/Chest: lungs clear Cardiovascular: normal rate, regular rhythm, no gallop/murmur Abdomen: soft, non tender, other - GT Extremities: no edema Laboratory Tests Test 05/27/19 08:20 White Blood Count 10.1 K/UL (4.8-10.8) Red Blood Count 2.92 M/UL (4.20-5.40) L Hemoglobin 8.3 G/DL (12.0-16.0) L Hematocrit 25.4 % (37.0-47.0) L Mean Corpuscular Volume 87 FL (80-99) Mean Corpuscular Hemoglobin 28.6 PG (27.0-31.0) Mean Corpuscular Hemoglobin Concent 32.8 G/DL (32.0-36.0) Red Cell Distribution Width 14.0 % (11.6-14.8) Platelet Count 356 K/UL (150-450) Mean Platelet Volume 5.5 FL (6.5-10.1) L Neutrophils (%) (Auto) 62.1 % (45.0-75.0) Lymphocytes (%) (Auto) 28.3 % (20.0-45.0) Monocytes (%) (Auto) 4.3 % (1.0-10.0) Eosinophils (%) (Auto) 4.3 % (0.0-3.0) H Basophils (%) (Auto) 1.1 % (0.0-2.0) Sodium Level 144 MMOL/L (136-145) Potassium Level 4.6 MMOL/L (3.5-5.1) Chloride Level 106 MMOL/L (98-107) Carbon Dioxide Level 28 MMOL/L (21-32) Anion Gap 10 mmol/L (5-15) Blood Urea Nitrogen 37 mg/dL (7-18) H Creatinine 0.8 MG/DL (0.55-1.30) Estimat Glomerular Filtration Rate > 60 mL/min (>60) Glucose Level 112 MG/DL (74-106) H Calcium Level 9.5 MG/DL (8.5-10.1) Magnesium Level 1.7 MG/DL (1.8-2.4) L Total Bilirubin 0.2 MG/DL (0.2-1.0) Aspartate Amino Transf (AST/SGOT) 28 U/L (15-37) Alanine Aminotransferase (ALT/SGPT) 47 U/L (12-78) Alkaline Phosphatase 166 U/L (46-116) H Total Protein 8.3 G/DL (6.4-8.2) H Albumin 2.6 G/DL (3.4-5.0) L Globulin 5.7 g/dL Albumin/Globulin Ratio 0.5 (1.0-2.7) L Current Medications Medications (Trade) Dose Ordered Sig/Maicol Route PRN Reason Start Time Stop Time Status Last Admin Dose Admin Acetaminophen (Tylenol) 650 mg Q4H PRN RECTAL T>100.5 / Mild Pain 05/07/19 09:45 06/06/19 09:44 05/07/19 10:13 Albuterol/ Ipratropium (Albuterol/ Ipratropium) 3 ml Q4HRT HHN 05/27/19 03:00 06/01/19 02:59 05/27/19 07:22 Amikacin Sulfate (Amikin) 500 mg Q12HRT@1000,2200 INH 05/21/19 11:00 05/27/19 23:59 05/27/19 10:15 Atropine Sulfate (Atropine Opth Adriana) 1 drop Q6HR SL 05/11/19 00:00 06/10/19 08:59 05/27/19 06:00 Carvedilol (Coreg) 6.25 mg EVERY 12 HOURS GT 05/23/19 21:00 06/22/19 20:59 05/27/19 08:35 Fluconazole/ Sodium Chloride 200 ml @ 100 mls/hr Q24H IV 05/18/19 12:00 05/28/19 13:00 05/26/19 13:18 Heparin Sodium (Porcine) (Heparin 5000 units/ml) 5,000 units EVERY 12 HOURS SUBQ 05/01/19 21:00 05/31/19 20:59 05/27/19 08:36 Hydralazine HCl (Apresoline) 10 mg Q4H PRN IV For High Blood Pressure 05/11/19 05:45 06/10/19 05:44 05/12/19 00:08 Levetiracetam (Keppra) 500 mg Q12HR GT 05/01/19 21:00 05/28/19 08:59 05/27/19 08:34 Magnesium Oxide (Mag-Ox 400mg) 400 mg THREE TIMES A DAY JT 05/24/19 13:00 06/23/19 12:59 05/27/19 08:35 Pantoprazole (Protonix) 40 mg DAILY IVP 05/15/19 18:15 06/14/19 18:14 05/27/19 08:34 Geovany Yang MD May 27, 2019 10:27"
--- NOTE | 2019-05-27 10:59 | NUR ---
*-* DISCHARGE PLANING *-* PATIENT HAS BEEN ACCEPTED AT: [facility] ROOM# 29 S/W SAMINA P: [phone] F: [phone] Addendum: 05/27/19 at 1441 by ANAYELI DOMINGUEZ CM [facility] [place] ROOM# 223 Addendum: 06/02/19 at 1107 by ANAYELI DOMINGUEZ CM SPOKE WITH SAMINA PATIENT IS STILL ACCEPTED TO ROOM# 29.. BUT SHE WILL DOUBLE CHECK Addendum: 06/02/19 at 1111 by ANAYELI DOMINGUEZ CM SPOKE WITH SAMINA PATIENT IS STILL ACCEPTED TO ROOM# 25-A
--- NOTE | 2019-05-27 11:20 | Nephrology Progress Note ---
Assessment/Plan Problem List: (1) Acute renal failure (ARF) Assessment: Cr stable (2) Chronic respiratory failure (3) Anemia (4) Sepsis Assessment Acute renal failure Respiratory failure - Trach Low Mag- Low k , Low Na Anemia UTI / Sepsis Proteinuria / HypoAlbuminemia high Trigs Sz decubs bed bound DNR Plan on Coreg now Transfused 05/09 has JT bolus Albumin as needed K and Mag and Phos supplement as needed Hydrate as needed Urine studies avoid Nephrotoxics mag K Phos supplements as needed monitor renal parameters Subjective ROS Limited/Unobtainable: Yes Objective Objective Last 24 Hour Vital Signs Date Time Temp Pulse Resp B/P (MAP) Pulse Ox O2 Delivery O2 Flow Rate FiO2 05/27/19 11:00 73 18 115/26 (55) 100 05/27/19 10:43 77 21 100 T-Piece 5.0 28 74 18 100 05/27/19 10:14 76 22 100 T-Piece 5.0 28 77 18 99 05/27/19 10:00 77 18 124/38 (66) 100 05/27/19 09:30 76 19 127/71 (89) 100 05/27/19 09:00 81 19 131/32 (65) 100 05/27/19 08:35 78 148/50 05/27/19 08:00 98.0 78 18 134/47 (76) 100 05/27/19 08:00 5.0 28 05/27/19 08:00 T-piece 5.0 T-piece 5.0 T-piece 5.0 05/27/19 07:57 78 05/27/19 07:21 100 T-Piece 5.0 28 05/27/19 07:19 77 19 100 T-Piece 5.0 28 78 19 100 05/27/19 07:00 76 22 140/49 (79) 100 05/27/19 06:00 77 18 142/43 (76) 100 05/27/19 05:00 75 18 140/53 (82) 100 05/27/19 04:00 98.2 78 18 140/60 (86) 100 05/27/19 04:00 5.0 28 05/27/19 04:00 76 05/27/19 04:00 T-piece 5.0 T-piece 5.0 T-piece 5.0 05/27/19 03:00 77 20 124/30 (61) 100 05/27/19 02:35 75 22 100 T-Piece 5.0 28 79 21 100 05/27/19 02:00 76 18 129/35 (66) 100 05/27/19 01:02 99 T-Piece 5.0 28 05/27/19 01:00 76 21 125/38 (67) 100 05/27/19 00:00 74 05/27/19 00:00 T-piece 5.0 T-piece 5.0 T-piece 5.0 05/27/19 00:00 98.6 78 21 138/44 (75) 100 05/27/19 00:00 5.0 28 05/26/19 23:00 75 21 130/36 (67) 100 05/26/19 22:00 75 21 132/40 (70) 100 05/26/19 21:45 75 21 100 T-Piece 5.0 28 74 19 100 05/26/19 21:00 72 19 103/38 (59) 100 05/26/19 20:18 76 138/36 05/26/19 20:00 78 05/26/19 20:00 5.0 28 05/26/19 20:00 76 20 138/36 (70) 100 05/26/19 20:00 T-piece 5.0 T-piece 5.0 T-piece 5.0 05/26/19 19:08 79 22 100 T-Piece 5.0 28 78 21 99 05/26/19 19:08 99 T-Piece 5.0 28 05/26/19 19:00 98.1 80 20 154/52 (86) 100 05/26/19 18:00 67 18 153/51 (85) 100 05/26/19 17:00 75 21 149/57 (87) 100 05/26/19 16:00 75 05/26/19 16:00 74 19 139/46 (77) 100 05/26/19 16:00 5.0 28 05/26/19 16:00 T-piece 5.0 T-piece 5.0 T-piece 5.0 05/26/19 15:04 75 22 100 T-Piece 5.0 28 77 22 98 05/26/19 15:00 76 21 137/42 (73) 100 05/26/19 14:19 100 T-Piece 5.0 28 05/26/19 14:00 98.6 82 20 158/66 (96) 99 05/26/19 13:00 78 20 145/51 (82) 100 05/26/19 12:00 5.0 28 05/26/19 12:00 78 20 154/51 (85) 100 05/26/19 12:00 77 05/26/19 12:00 T-piece 5.0 T-piece 5.0 T-piece 5.0 05/26/19 11:26 78 24 100 T-Piece 5.0 28 75 20 100 Intake and Output 05/26/19 05/27/19 19:00 07:00 Intake Total 1670 ml 920 ml Output Total 570 ml 900 ml Balance 1100 ml 20 ml IV Total 200 ml Tube Feeding 720 ml 720 ml Other 750 ml 200 ml Output Urine Total 570 ml 900 ml # Bowel Movements 8 1 Laboratory Tests 05/27/19 08:20: White Blood Count 10.1, Red Blood Count 2.92L, Hemoglobin 8.3L, Hematocrit 25.4L , Mean Corpuscular Volume 87, Mean Corpuscular Hemoglobin 28.6, Mean Corpuscular Hemoglobin Concent 32.8, Red Cell Distribution Width 14.0, Platelet Count 356, Mean Platelet Volume 5.5L, Neutrophils (%) (Auto) 62.1, Lymphocytes ( %) (Auto) 28.3, Monocytes (%) (Auto) 4.3, Eosinophils (%) (Auto) 4.3H, Basophils (%) (Auto) 1.1, Sodium Level 144, Potassium Level 4.6, Chloride Level 106, Carbon Dioxide Level 28, Anion Gap 10, Blood Urea Nitrogen 37H, Creatinine 0.8, Estimat Glomerular Filtration Rate > 60, Glucose Level 112H, Calcium Level 9.5, Magnesium Level 1.7L, Total Bilirubin 0.2, Aspartate Amino Transf (AST/SGOT ) 28, Alanine Aminotransferase (ALT/SGPT) 47, Alkaline Phosphatase 166H, Total Protein 8.3H, Albumin 2.6L, Globulin 5.7, Albumin/Globulin Ratio 0.5L Height (Feet): 5 Height (Inches): 3.00 Weight (Pounds): 133 General Appearance: no apparent distress EENT: other - trach- O2 Cardiovascular: normal rate Respiratory/Chest: decreased breath sounds Abdomen: soft Objective no change Fouladian,Eric MD May 27, 2019 11:20
--- NOTE | 2019-05-27 13:24 | Pulmonolgy Critical Care Note ---
Critical Care - Asmt/Plan Assessment/Plan: Pulmonary CCM Progress Note Assessment and Plan Impression: Fungemia [facility]+ history of Pneumonia Trach, G tube, Hypertension, Cardiac disease, Dementia, Previous CVA, Seizure disorder, Respiratory failure with hypoxia Anemia, Sacral ulcer renal cyst chronic pulmonary congestion Plan antifungals antimicrobials ID following for changes overall pulmonary status slightly improved monitor imaging for change and monitor secretions Vent PRN but DNR as per family monitor labs for change and recommend further maintain reflux aspiration and monitor feeds elevate head and monitor secretions monitor labs for change monitor vitals; and adjust meds; cards following; tachycardia resolved DNR. No CPR. ICU care reviewed meds noted and updated; neb therapy off load as able prognosis very poor nutrition/fees/ dietary as is; monitor residuals skin care management reviewed difficulty with placement all changes noted and discussed chronic management as able medications/laboratory data/nursing notes/ICU care reviewed in detail note reviewed and edited care discussed with RN and RT time spent x 43minutes Subjective ROS Limited/Unobtainable: Yes Allergies: Coded Allergies: CODEINE (Verified Allergy, Unknown, HIVES, 09/15/09) Subjective overnight events noted; poor LOC on isolation; remains on TC Fungemia; noted [facility] ICU care issues discussed requires suctioning for ongoing congestion Objective Vital Signs Noted Objective WDWN NAD contracted off vent reduced breath sounds bilaterally with some rhonchi; no wheeze [id number] without MRG NABS nontender no HSM no CC minimal nonfocal nonverbal trach and gt reviewed and edited Laboratory Tests Noted Critical Care - Objective Last 24 Hour Vital Signs Date Time Temp Pulse Resp B/P (MAP) Pulse Ox O2 Delivery O2 Flow Rate FiO2 05/27/19 12:00 98.1 75 19 135/46 (75) 100 05/27/19 12:00 5.0 28 05/27/19 12:00 T-piece 5.0 T-piece 5.0 T-piece 5.0 05/27/19 11:00 73 18 115/26 (55) 100 05/27/19 10:43 77 21 100 T-Piece 5.0 28 74 18 100 05/27/19 10:14 76 22 100 T-Piece 5.0 28 77 18 99 05/27/19 10:00 77 18 124/38 (66) 100 05/27/19 09:30 76 19 127/71 (89) 100 05/27/19 09:00 81 19 131/32 (65) 100 05/27/19 08:35 78 148/50 05/27/19 08:00 98.0 78 18 134/47 (76) 100 05/27/19 08:00 5.0 28 05/27/19 08:00 T-piece 5.0 T-piece 5.0 T-piece 5.0 05/27/19 07:57 78 05/27/19 07:21 100 T-Piece 5.0 28 05/27/19 07:19 77 19 100 T-Piece 5.0 28 78 19 100 05/27/19 07:00 76 22 140/49 (79) 100 05/27/19 06:00 77 18 142/43 (76) 100 05/27/19 05:00 75 18 140/53 (82) 100 05/27/19 04:00 98.2 78 18 140/60 (86) 100 05/27/19 04:00 5.0 28 05/27/19 04:00 76 05/27/19 04:00 T-piece 5.0 T-piece 5.0 T-piece 5.0 05/27/19 03:00 77 20 124/30 (61) 100 05/27/19 02:35 75 22 100 T-Piece 5.0 28 79 21 100 05/27/19 02:00 76 18 129/35 (66) 100 05/27/19 01:02 99 T-Piece 5.0 28 05/27/19 01:00 76 21 125/38 (67) 100 05/27/19 00:00 74 05/27/19 00:00 T-piece 5.0 T-piece 5.0 T-piece 5.0 05/27/19 00:00 98.6 78 21 138/44 (75) 100 05/27/19 00:00 5.0 28 05/26/19 23:00 75 21 130/36 (67) 100 05/26/19 22:00 75 21 132/40 (70) 100 05/26/19 21:45 75 21 100 T-Piece 5.0 28 74 19 100 05/26/19 21:00 72 19 103/38 (59) 100 05/26/19 20:18 76 138/36 05/26/19 20:00 78 05/26/19 20:00 5.0 28 05/26/19 20:00 76 20 138/36 (70) 100 05/26/19 20:00 T-piece 5.0 T-piece 5.0 T-piece 5.0 05/26/19 19:08 79 22 100 T-Piece 5.0 28 78 21 99 05/26/19 19:08 99 T-Piece 5.0 28 05/26/19 19:00 98.1 80 20 154/52 (86) 100 05/26/19 18:00 67 18 153/51 (85) 100 05/26/19 17:00 75 21 149/57 (87) 100 05/26/19 16:00 75 05/26/19 16:00 74 19 139/46 (77) 100 05/26/19 16:00 5.0 28 05/26/19 16:00 T-piece 5.0 T-piece 5.0 T-piece 5.0 05/26/19 15:04 75 22 100 T-Piece 5.0 28 77 22 98 05/26/19 15:00 76 21 137/42 (73) 100 05/26/19 14:19 100 T-Piece 5.0 28 05/26/19 14:00 98.6 82 20 158/66 (96) 99 Accucheck: 110 Critical Care - Subjective ROS Limited/Unobtainable: Yes Condition: stable EKG Rhythm: Sinus Rhythm FI02: 28 Vent Support Mode: CPAP Vent Tidal Volume: 450 Sputum Amount: Small PEEP: 5.0 PIP: 19 Tube Feeding Amount: 60 I&O: Intake and Output 05/26/19 05/27/19 19:00 07:00 Intake Total 1670 ml 920 ml Output Total 570 ml 900 ml Balance 1100 ml 20 ml IV Total 200 ml Tube Feeding 720 ml 720 ml Other 750 ml 200 ml Output Urine Total 570 ml 900 ml # Bowel Movements 8 1 ET-Tube: 6.0 Bg Moffett MD May 27, 2019 13:24
--- NOTE | 2019-05-27 14:29 | NUR ---
FORM DRAFTER NOTES SPOKE WITH PT'S DAUGHTER STEPHANIE MADE AWARE OF THE TWO FACILITIES ACCEPTING PT. PER STEPHANIE SHE WILL VISIT BOTH FACILITIES TOMORROW AND LET ME KNOW. EXPLAIN TO STEPHANIE ALL AREA FACILITIES HAVE DECLINED PT.WILL FOLLOW UP IN AM WITH DAUGHTER CHOICE OF FACILITY.
--- NOTE | 2019-05-27 18:12 | General Progress Note ---
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 - Anemia with OB (-) stools - Resp failure, s/p Trach - OBS, vegetative obtunded unresponsive state, bedbound with contracted extremities - h/o minor GJ tube site irritation - poor Prognosis Recommendations - No plans for immune suppression at this time (risk benefit ratio in favor of holding off Rx) - abx per ID - PPI daily - Cristian BID - antibiotic ointment to GJT site PRN - aspiration precautions - elevate HOB - Vital AF 1.2 - transfuse to keep Hg > 7 - J tube feeds - G tube ---> LIS Subjective Allergies: Coded Allergies: CODEINE (Verified Allergy, Unknown, HIVES, 09/15/09) Subjective above noted d/w RN tolerating TF (+) BM LFT lower Objective Last 24 Hour Vital Signs Date Time Temp Pulse Resp B/P (MAP) Pulse Ox O2 Delivery O2 Flow Rate FiO2 05/27/19 18:03 82 24 147/78 (101) 100 05/27/19 17:00 75 19 99/26 (50) 100 05/27/19 16:00 T-piece 5.0 T-piece 5.0 T-piece 5.0 05/27/19 16:00 5.0 28 05/27/19 16:00 77 21 115/27 (56) 100 05/27/19 15:27 100 T-Piece 5.0 28 05/27/19 15:27 80 05/27/19 15:27 83 22 100 T-Piece 5.0 28 81 20 100 05/27/19 15:00 85 17 142/72 (95) 100 05/27/19 14:00 81 17 139/54 (82) 100 05/27/19 13:00 72 18 155/54 (87) 100 05/27/19 12:00 98.1 75 19 135/46 (75) 100 05/27/19 12:00 5.0 28 05/27/19 12:00 T-piece 5.0 T-piece 5.0 T-piece 5.0 05/27/19 11:23 77 05/27/19 11:00 73 18 115/26 (55) 100 05/27/19 10:43 77 21 100 T-Piece 5.0 28 74 18 100 05/27/19 10:14 76 22 100 T-Piece 5.0 28 77 18 99 05/27/19 10:00 77 18 124/38 (66) 100 05/27/19 09:30 76 19 127/71 (89) 100 05/27/19 09:00 81 19 131/32 (65) 100 05/27/19 08:35 78 148/50 05/27/19 08:00 98.0 78 18 134/47 (76) 100 05/27/19 08:00 5.0 28 05/27/19 08:00 T-piece 5.0 T-piece 5.0 T-piece 5.0 05/27/19 07:57 78 05/27/19 07:21 100 T-Piece 5.0 28 05/27/19 07:19 77 19 100 T-Piece 5.0 28 78 19 100 05/27/19 07:00 76 22 140/49 (79) 100 05/27/19 06:00 77 18 142/43 (76) 100 05/27/19 05:00 75 18 140/53 (82) 100 05/27/19 04:00 98.2 78 18 140/60 (86) 100 05/27/19 04:00 5.0 28 05/27/19 04:00 76 05/27/19 04:00 T-piece 5.0 T-piece 5.0 T-piece 5.0 05/27/19 03:00 77 20 124/30 (61) 100 05/27/19 02:35 75 22 100 T-Piece 5.0 28 79 21 100 05/27/19 02:00 76 18 129/35 (66) 100 05/27/19 01:02 99 T-Piece 5.0 28 05/27/19 01:00 76 21 125/38 (67) 100 05/27/19 00:00 74 05/27/19 00:00 T-piece 5.0 T-piece 5.0 T-piece 5.0 05/27/19 00:00 98.6 78 21 138/44 (75) 100 05/27/19 00:00 5.0 28 05/26/19 23:00 75 21 130/36 (67) 100 05/26/19 22:00 75 21 132/40 (70) 100 05/26/19 21:45 75 21 100 T-Piece 5.0 28 74 19 100 05/26/19 21:00 72 19 103/38 (59) 100 05/26/19 20:18 76 138/36 05/26/19 20:00 78 05/26/19 20:00 5.0 28 05/26/19 20:00 76 20 138/36 (70) 100 05/26/19 20:00 T-piece 5.0 T-piece 5.0 T-piece 5.0 05/26/19 19:08 79 22 100 T-Piece 5.0 28 78 21 99 05/26/19 19:08 99 T-Piece 5.0 28 05/26/19 19:00 98.1 80 20 154/52 (86) 100 Intake and Output 05/26/19 05/27/19 19:00 07:00 Intake Total 1670 ml 920 ml Output Total 570 ml 900 ml Balance 1100 ml 20 ml IV Total 200 ml Tube Feeding 720 ml 720 ml Other 750 ml 200 ml Output Urine Total 570 ml 900 ml # Bowel Movements 8 1 Laboratory Tests 05/27/19 08:20: White Blood Count 10.1, Red Blood Count 2.92L, Hemoglobin 8.3L, Hematocrit 25.4L , Mean Corpuscular Volume 87, Mean Corpuscular Hemoglobin 28.6, Mean Corpuscular Hemoglobin Concent 32.8, Red Cell Distribution Width 14.0, Platelet Count 356, Mean Platelet Volume 5.5L, Neutrophils (%) (Auto) 62.1, Lymphocytes ( %) (Auto) 28.3, Monocytes (%) (Auto) 4.3, Eosinophils (%) (Auto) 4.3H, Basophils (%) (Auto) 1.1, Sodium Level 144, Potassium Level 4.6, Chloride Level 106, Carbon Dioxide Level 28, Anion Gap 10, Blood Urea Nitrogen 37H, Creatinine 0.8, Estimat Glomerular Filtration Rate > 60, Glucose Level 112H, Calcium Level 9.5, Magnesium Level 1.7L, Total Bilirubin 0.2, Aspartate Amino Transf (AST/SGOT ) 28, Alanine Aminotransferase (ALT/SGPT) 47, Alkaline Phosphatase 166H, Total Protein 8.3H, Albumin 2.6L, Globulin 5.7, Albumin/Globulin Ratio 0.5L Height (Feet): 5 Height (Inches): 3.00 Weight (Pounds): 133 Objective Debilitated AA woman non-verbal, obtunded NCAT (+) trach coarse BS RR obese abd, (+) GJT, (+) (L) trunk edema no edema (+) contractured extremities Celio Vaughan MD May 27, 2019 18:12
--- NOTE | 2019-05-27 19:06 | NUR ---
HAND-OFF: Report given to Markel PAEZ/ La Nena PAEZ.
--- NOTE | 2019-05-27 19:08 | NUR ---
RESPIRATORY NOTE: Received pt on 28% Cool Aerosol via T-Piece. Pt is trach-dependent w/ a cuffed, Shiley 6 XLT tube. Cuff is currently deflated. Pt is awake, responds to stimuli. B/S flory. rhonchi, sxn small to moderate amounts of thick/thin/frothy, white to pale-yellow secretions. [place] at bedside. Pt resting comfortably, in no apparent distress at this time. Will continue to monitor pt.
--- NOTE | 2019-05-27 22:00 | NUR ---
NURSE NOTES: Patient awake and nonverbal tolerating Trach t-piece to cool aerosol. Patient suctioned and oral care provided. VSS and afebrile. Patient repositioned. will continue to monitor. bed locked lowest position, call light within reach, family at bedside.
[2019-05-28] VITALS (24 sets, daily range): BP systolic 114–163; BP diastolic 33–68
--- NOTE | 2019-05-28 00:45 | NUR ---
NURSE NOTES: Patient asleep opens eyes with light stimulation, Nonverbal. VSS and afebrile. Patient suctioned and oral care provided. Right FA PIV 24gauge and Left Hand PIV 22 gauge became occluded. New PIV started on left AC gauge 22, dressing clean dry and patent. Will continue to monitor.
--- NOTE | 2019-05-28 02:45 | NUR ---
NURSE NOTES: Patient given bed bath. Patient suctioned and oral care provided. Small amount of thick white secretions obtained. Patient had small soft brown bowel movement. Sacral optifoam clean dry intact. VSS, Patient afebrile. will continue to monitor.
[2019-05-28] MEDS: Albuterol/Ipratropium 3ml neb HHN SCH ×6 (03:00→23:55)
--- NOTE | 2019-05-28 03:00 | Progress Note ---
DATE: 05/28/2019 CARDIOLOGY PROGRESS NOTE SUBJECTIVE: The patient's condition remains unchanged. Laboratories were noted for today. Vitals reviewed. Intensive care unit logs noted. Disposition options discussed with case management. OBJECTIVE: VITAL SIGNS: Exam reveals blood pressure 150/44, pulse 82, and respirations 20. HEENT: On trach collar. LUNGS: Bilateral breath sounds. HEART: Regular rhythm and rate. ABDOMEN: Soft. EXTREMITIES: No edema. GJ-tube site intact. LABORATORY DATA: White count 10 and hemoglobin 8.3. Magnesium 1.7. BUN 37 and creatinine 0.8. Albumin 2.6. IMPRESSION: Stable. PLAN: 1. Continue current cardiovascular regimen. 2. Magnesium supplementation added. 3. We will follow and make adjustments in regimen based on clinical parameters. Bg Hagen M.D. DR: DAMEON JOB#: [id number] CC:
--- NOTE | 2019-05-28 04:00 | NUR ---
NURSE NOTES: Patient asleep. Opens eyes to light stimulation but nonverbal with trach. VSS and afebrile. oral care and suction provided. Moderate amount of thick white secretions obtained. abdomen round nontender with hypoactive bowel sounds x4 quadrants. No residual obtained from Gtube. Dressing clean dry intact. Patient repositioned. will continue to monitor.
--- NOTE | 2019-05-28 06:00 | NUR ---
NURSE NOTES: Patient asleep arousable with light stimulation. VSS and afebrile. Patient tolerating trach on cool aerosol at 5L. Patient suctioned and repositioned. will continue to monitor.
--- NOTE | 2019-05-28 07:05 | NUR ---
HAND-OFF: Report given to JEANNINE Gilmore.
--- NOTE | 2019-05-28 07:06 | NUR ---
NURSE NOTES: RECEIVED PATIENT FROM Regina MORAN RN. PATIENT IS LYING IN BED, ASLEEP. HOOKED TO BUFFERER. T-PIECE SHILEY 6, XLT CONNECTED TO COOL AEROSOL 28%, 5L. NO SIGNS OF DISTRESS OF THE MOMENT. G-JT IN PLACE. J-TUBE RUNNING VITAL AF 1.2 AT 60ML/HR. AND G-TUBE CONNECT TO LIS. ON PUREWICK. NOTED SKIN ALTERATION. ON P200 MATTRESS. PIV ON L AC G24, TKO. CALL LIGHT WITHIN REACH. BED AT LOWEST POSITION. SIDE RAILS UP. WILL CONTINUE TO MONITOR.
--- NOTE | 2019-05-28 08:22 | Pulmonology Progress Note ---
Assessment/Plan Assessment/Plan Impression: Fungemia [facility]+ history of Pneumonia Trach, G tube, Hypertension, Cardiac disease, Dementia, Previous CVA, Seizure disorder, Respiratory failure with hypoxia Anemia, Sacral ulcer renal cyst chronic pulmonary congestion Plan antifungals antimicrobials ID following for changes overall pulmonary status slightly improved monitor imaging for change and monitor secretions Vent PRN but DNR as per family monitor labs for change and recommend further maintain reflux aspiration and monitor feeds elevate head and monitor secretions monitor labs for change monitor vitals; and adjust meds; cards following; tachycardia resolved DNR. No CPR. ICU care reviewed meds noted and updated; neb therapy off load as able prognosis very poor nutrition/fees/ dietary as is; monitor residuals skin care management reviewed difficulty with placement all changes noted and discussed chronic management as able medications/laboratory data/nursing notes/ICU care reviewed in detail note reviewed and edited care discussed with RN and RT time spent x 38minutes Subjective Allergies: Coded Allergies: CODEINE (Verified Allergy, Unknown, HIVES, 09/15/09) Subjective overnight events noted; remains poorly responsive some congestion on isolation; remains off vent for now Fungemia; noted [facility] off vent ICU care issues discussed requires suctioning and has some congestion Objective Last 24 Hour Vital Signs Date Time Temp Pulse Resp B/P (MAP) Pulse Ox O2 Delivery O2 Flow Rate FiO2 05/28/19 07:40 100 T-Piece 5.0 28 05/28/19 07:40 84 20 100 T-Piece 5.0 28 78 20 100 05/28/19 06:00 84 22 141/37 (71) 100 05/28/19 05:00 82 23 137/40 (72) 100 05/28/19 04:00 T-piece 5.0 T-piece 5.0 T-piece 5.0 05/28/19 04:00 81 05/28/19 04:00 5.0 28 05/28/19 04:00 98.8 81 21 142/47 (78) 100 05/28/19 03:10 80 21 100 T-Piece 5.0 28 05/28/19 03:00 83 22 100 T-Piece 5.0 28 05/28/19 03:00 83 20 146/68 (94) 100 05/28/19 02:00 79 22 114/44 (67) 100 05/28/19 01:00 81 23 123/54 (77) 100 05/28/19 00:30 100 T-Piece 5.0 28 05/28/19 00:00 T-piece 5.0 T-piece 5.0 T-piece 5.0 05/28/19 00:00 97.9 80 21 126/38 (67) 100 05/28/19 00:00 80 05/27/19 23:29 79 22 100 T-Piece 5.0 28 05/27/19 23:19 79 21 100 T-Piece 5.0 28 05/27/19 23:00 81 23 136/48 (77) 100 05/27/19 22:00 79 20 123/42 (69) 100 05/27/19 21:00 5.0 28 05/27/19 21:00 81 19 133/45 (74) 100 05/27/19 20:51 82 150/44 05/27/19 20:00 83 05/27/19 20:00 T-piece 5.0 T-piece 5.0 T-piece 5.0 05/27/19 20:00 98.1 83 20 150/44 (79) 100 05/27/19 19:15 83 23 100 T-Piece 5.0 28 05/27/19 19:06 100 T-Piece 5.0 28 05/27/19 19:06 81 23 100 T-Piece 5.0 28 05/27/19 19:00 81 19 142/45 (77) 99 05/27/19 18:03 82 24 147/78 (101) 100 05/27/19 17:00 75 19 99/26 (50) 100 05/27/19 16:00 T-piece 5.0 T-piece 5.0 T-piece 5.0 05/27/19 16:00 5.0 28 05/27/19 16:00 77 21 115/27 (56) 100 05/27/19 15:27 100 T-Piece 5.0 28 05/27/19 15:27 80 05/27/19 15:27 83 22 100 T-Piece 5.0 28 81 20 100 05/27/19 15:00 85 17 142/72 (95) 100 05/27/19 14:00 81 17 139/54 (82) 100 05/27/19 13:00 72 18 155/54 (87) 100 05/27/19 12:00 98.1 75 19 135/46 (75) 100 05/27/19 12:00 5.0 28 05/27/19 12:00 T-piece 5.0 T-piece 5.0 T-piece 5.0 05/27/19 11:23 77 05/27/19 11:00 73 18 115/26 (55) 100 05/27/19 10:43 77 21 100 T-Piece 5.0 28 74 18 100 05/27/19 10:14 76 22 100 T-Piece 5.0 28 77 18 99 05/27/19 10:00 77 18 124/38 (66) 100 05/27/19 09:30 76 19 127/71 (89) 100 05/27/19 09:00 81 19 131/32 (65) 100 05/27/19 08:35 78 148/50 Intake and Output 05/27/19 05/28/19 19:00 07:00 Intake Total 1720.00 ml 960 ml Output Total 300 ml 500 ml Balance 1420.00 ml 460 ml Free Water 300 ml 300 ml IV Total 400.00 ml Tube Feeding 720 ml 660 ml Other 300 ml Output Urine Total 300 ml 400 ml Other 100 ml # Bowel Movements 1 1 Objective WDWN NAD on oxygen off vent reduced breath sounds bilaterally with occ rhonchi [id number] without MRG NABS nontender no HSM no CC trace edema same contractures noted nonfocal nonverbal trach and gt reviewed and edited Current Medications Medications (Trade) Dose Ordered Sig/Maicol Route PRN Reason Start Time Stop Time Status Last Admin Dose Admin Acetaminophen (Tylenol) 650 mg Q4H PRN RECTAL T>100.5 / Mild Pain 05/07/19 09:45 06/06/19 09:44 05/07/19 10:13 Albuterol/ Ipratropium (Albuterol/ Ipratropium) 3 ml Q4HRT HHN 05/27/19 03:00 06/01/19 02:59 05/28/19 07:41 Atropine Sulfate (Atropine Opth Adriana) 1 drop Q6HR SL 05/11/19 00:00 06/10/19 08:59 05/28/19 06:12 Carvedilol (Coreg) 6.25 mg EVERY 12 HOURS GT 05/23/19 21:00 06/22/19 20:59 05/27/19 20:51 Fluconazole/ Sodium Chloride 200 ml @ 100 mls/hr Q24H IV 05/18/19 12:00 05/28/19 13:00 05/27/19 11:46 Heparin Sodium (Porcine) (Heparin 5000 units/ml) 5,000 units EVERY 12 HOURS SUBQ 05/01/19 21:00 05/31/19 20:59 05/27/19 20:52 Hydralazine HCl (Apresoline) 10 mg Q4H PRN IV For High Blood Pressure 05/11/19 05:45 06/10/19 05:44 05/12/19 00:08 Levetiracetam (Keppra) 500 mg Q12HR GT 05/01/19 21:00 05/28/19 08:59 05/27/19 20:51 Magnesium Oxide (Mag-Ox 400mg) 400 mg THREE TIMES A DAY JT 05/24/19 13:00 06/23/19 12:59 05/27/19 17:39 Pantoprazole (Protonix) 40 mg DAILY IVP 05/15/19 18:15 06/14/19 18:14 05/27/19 08:34 Amaury Chan MD May 28, 2019 08:22
[2019-05-28] MEDS: Pantoprazole Inj IVP SCH (08:32)
[2019-05-28] MEDS: Heparin 5000 units/ml inj SUBQ SCH ×2 (08:32→21:30)
[2019-05-28] MEDS: Carvedilol 6.25mg Tab GT SCH ×2 (08:32→21:00)
[2019-05-28] MEDS: Magnesium Oxide 400mg tab JT SCH ×3 (08:33→18:00)
--- NOTE | 2019-05-28 09:00 | NUR ---
NURSE NOTES: SEEN AND EXAMINED BY DR HER. NO NEW ORDER. WILL CONTINUE TO MONITOR.
--- NOTE | 2019-05-28 11:04 | Nephrology Progress Note ---
Assessment/Plan Problem List: (1) Acute renal failure (ARF) Assessment: Cr stable (2) Chronic respiratory failure (3) Anemia (4) Sepsis Assessment Acute renal failure Respiratory failure - Trach Low Mag- Low k , Low Na Anemia UTI / Sepsis Proteinuria / HypoAlbuminemia high Trigs Sz decubs bed bound DNR Plan on Coreg now Transfused 05/09 has JT bolus Albumin as needed K and Mag and Phos supplement as needed Hydrate as needed Urine studies avoid Nephrotoxics mag K Phos supplements as needed monitor renal parameters Subjective ROS Limited/Unobtainable: Yes Objective Objective Last 24 Hour Vital Signs Date Time Temp Pulse Resp B/P (MAP) Pulse Ox O2 Delivery O2 Flow Rate FiO2 05/28/19 10:52 78 18 100 T-Piece 5.0 28 76 18 100 05/28/19 10:00 80 21 131/33 (65) 100 05/28/19 09:00 87 25 135/43 (73) 98 05/28/19 08:32 86 140/42 05/28/19 08:00 82 05/28/19 08:00 98.5 83 21 140/42 (74) 100 05/28/19 08:00 5.0 28 05/28/19 07:40 100 T-Piece 5.0 28 05/28/19 07:40 84 20 100 T-Piece 5.0 28 78 20 100 05/28/19 07:00 84 23 153/47 (82) 100 05/28/19 06:00 84 22 141/37 (71) 100 05/28/19 05:00 82 23 137/40 (72) 100 05/28/19 04:00 T-piece 5.0 T-piece 5.0 T-piece 5.0 05/28/19 04:00 81 05/28/19 04:00 5.0 28 05/28/19 04:00 98.8 81 21 142/47 (78) 100 05/28/19 03:10 80 21 100 T-Piece 5.0 28 05/28/19 03:00 83 22 100 T-Piece 5.0 28 05/28/19 03:00 83 20 146/68 (94) 100 05/28/19 02:00 79 22 114/44 (67) 100 05/28/19 01:00 81 23 123/54 (77) 100 05/28/19 00:30 100 T-Piece 5.0 28 05/28/19 00:00 T-piece 5.0 T-piece 5.0 T-piece 5.0 05/28/19 00:00 97.9 80 21 126/38 (67) 100 05/28/19 00:00 80 05/27/19 23:29 79 22 100 T-Piece 5.0 28 05/27/19 23:19 79 21 100 T-Piece 5.0 28 05/27/19 23:00 81 23 136/48 (77) 100 05/27/19 22:00 79 20 123/42 (69) 100 05/27/19 21:00 5.0 28 05/27/19 21:00 81 19 133/45 (74) 100 05/27/19 20:51 82 150/44 05/27/19 20:00 83 05/27/19 20:00 T-piece 5.0 T-piece 5.0 T-piece 5.0 05/27/19 20:00 98.1 83 20 150/44 (79) 100 05/27/19 19:15 83 23 100 T-Piece 5.0 28 05/27/19 19:06 100 T-Piece 5.0 28 05/27/19 19:06 81 23 100 T-Piece 5.0 28 05/27/19 19:00 81 19 142/45 (77) 99 05/27/19 18:03 82 24 147/78 (101) 100 05/27/19 17:00 75 19 99/26 (50) 100 05/27/19 16:00 T-piece 5.0 T-piece 5.0 T-piece 5.0 05/27/19 16:00 5.0 28 05/27/19 16:00 77 21 115/27 (56) 100 05/27/19 15:27 100 T-Piece 5.0 28 05/27/19 15:27 80 05/27/19 15:27 83 22 100 T-Piece 5.0 28 81 20 100 05/27/19 15:00 85 17 142/72 (95) 100 05/27/19 14:00 81 17 139/54 (82) 100 05/27/19 13:00 72 18 155/54 (87) 100 05/27/19 12:00 98.1 75 19 135/46 (75) 100 05/27/19 12:00 5.0 28 05/27/19 12:00 T-piece 5.0 T-piece 5.0 T-piece 5.0 05/27/19 11:23 77 Intake and Output 05/27/19 05/28/19 18:59 06:59 Intake Total 1720.00 ml 1020 ml Output Total 800 ml Balance 1720.00 ml 220 ml Free Water 300 ml 300 ml IV Total 400.00 ml Tube Feeding 720 ml 720 ml Other 300 ml Output Urine Total 700 ml Other 100 ml # Bowel Movements 2 Height (Feet): 5 Height (Inches): 3.00 Weight (Pounds): 127 General Appearance: no apparent distress EENT: other - trach to O2 Cardiovascular: normal rate Respiratory/Chest: decreased breath sounds Abdomen: soft Objective no change Eric Cortez MD May 28, 2019 11:04
--- NOTE | 2019-05-28 12:00 | NUR ---
NURSE NOTES: REINSERTED IV LINE. DC IV LINE ON LEFT HAND. WILL CONTINUE TO MONITOR.
--- NOTE | 2019-05-28 13:23 | Infectious Diseases Prog Note ---
Assessment/Plan Assessment/Plan A 1.Pseudomonas & Providencia pneumonia treated 2.Chronic respiratory failure 3. hypertension 4. CVA 5. dementia 6. sacral decubitus ulcer 7. rectal VRE colonization 8. Anemia 9. Proteus UTI treated 10. Acute renal failure 11. Sepsis with Klebsiella ( KPC), treated 12.delano Parapsilosis sepsis treated P 1 Observe off antibiotic Subjective ROS Limited/Unobtainable: Yes Allergies: Coded Allergies: CODEINE (Verified Allergy, Unknown, HIVES, 09/15/09) Objective Vital Signs Last 24 Hour Vital Signs Date Time Temp Pulse Resp B/P (MAP) Pulse Ox O2 Delivery O2 Flow Rate FiO2 05/28/19 13:01 100 T-Piece 5.0 28 05/28/19 12:00 89 05/28/19 12:00 98.2 87 20 142/48 (79) 100 05/28/19 12:00 5.0 28 05/28/19 11:00 86 22 159/64 (95) 100 05/28/19 10:52 78 18 100 T-Piece 5.0 28 76 18 100 05/28/19 10:00 80 21 131/33 (65) 100 05/28/19 09:00 87 25 135/43 (73) 98 05/28/19 08:32 86 140/42 05/28/19 08:00 82 05/28/19 08:00 98.5 83 21 140/42 (74) 100 05/28/19 08:00 5.0 28 05/28/19 07:40 100 T-Piece 5.0 28 05/28/19 07:40 84 20 100 T-Piece 5.0 28 78 20 100 05/28/19 07:00 84 23 153/47 (82) 100 05/28/19 06:00 84 22 141/37 (71) 100 05/28/19 05:00 82 23 137/40 (72) 100 05/28/19 04:00 T-piece 5.0 T-piece 5.0 T-piece 5.0 05/28/19 04:00 81 05/28/19 04:00 5.0 28 05/28/19 04:00 98.8 81 21 142/47 (78) 100 05/28/19 03:10 80 21 100 T-Piece 5.0 28 05/28/19 03:00 83 22 100 T-Piece 5.0 28 05/28/19 03:00 83 20 146/68 (94) 100 05/28/19 02:00 79 22 114/44 (67) 100 05/28/19 01:00 81 23 123/54 (77) 100 05/28/19 00:30 100 T-Piece 5.0 28 05/28/19 00:00 T-piece 5.0 T-piece 5.0 T-piece 5.0 05/28/19 00:00 97.9 80 21 126/38 (67) 100 05/28/19 00:00 80 05/27/19 23:29 79 22 100 T-Piece 5.0 28 05/27/19 23:19 79 21 100 T-Piece 5.0 28 05/27/19 23:00 81 23 136/48 (77) 100 05/27/19 22:00 79 20 123/42 (69) 100 05/27/19 21:00 5.0 28 05/27/19 21:00 81 19 133/45 (74) 100 05/27/19 20:51 82 150/44 05/27/19 20:00 83 05/27/19 20:00 T-piece 5.0 T-piece 5.0 T-piece 5.0 05/27/19 20:00 98.1 83 20 150/44 (79) 100 05/27/19 19:15 83 23 100 T-Piece 5.0 28 05/27/19 19:06 100 T-Piece 5.0 28 05/27/19 19:06 81 23 100 T-Piece 5.0 28 05/27/19 19:00 81 19 142/45 (77) 99 05/27/19 18:03 82 24 147/78 (101) 100 05/27/19 17:00 75 19 99/26 (50) 100 05/27/19 16:00 T-piece 5.0 T-piece 5.0 T-piece 5.0 05/27/19 16:00 5.0 28 05/27/19 16:00 77 21 115/27 (56) 100 05/27/19 15:27 100 T-Piece 5.0 28 05/27/19 15:27 80 05/27/19 15:27 83 22 100 T-Piece 5.0 28 81 20 100 05/27/19 15:00 85 17 142/72 (95) 100 05/27/19 14:00 81 17 139/54 (82) 100 Height (Feet): 5 Height (Inches): 3.00 Weight (Pounds): 127 General Appearance: no acute distress HEENT: status post trach Respiratory/Chest: other - on T bar , few rhonchi Cardiovascular: normal rate Abdomen: soft, non tender, other - GJ tube Extremities: no edema Neurologic/Psychiatric: aphasia, other - opens eyes Current Medications Medications (Trade) Dose Ordered Sig/Maicol Route PRN Reason Start Time Stop Time Status Last Admin Dose Admin Acetaminophen (Tylenol) 650 mg Q4H PRN RECTAL T>100.5 / Mild Pain 05/07/19 09:45 06/06/19 09:44 05/07/19 10:13 Albuterol/ Ipratropium (Albuterol/ Ipratropium) 3 ml Q4HRT HHN 05/27/19 03:00 06/01/19 02:59 05/28/19 10:53 Atropine Sulfate (Atropine Opth Adriana) 1 drop Q6HR SL 05/11/19 00:00 06/10/19 08:59 05/28/19 13:09 Carvedilol (Coreg) 6.25 mg EVERY 12 HOURS GT 05/23/19 21:00 06/22/19 20:59 05/28/19 08:32 Heparin Sodium (Porcine) (Heparin 5000 units/ml) 5,000 units EVERY 12 HOURS SUBQ 05/01/19 21:00 05/31/19 20:59 05/28/19 08:32 Hydralazine HCl (Apresoline) 10 mg Q4H PRN IV For High Blood Pressure 05/11/19 05:45 06/10/19 05:44 05/12/19 00:08 Magnesium Oxide (Mag-Ox 400mg) 400 mg THREE TIMES A DAY JT 05/24/19 13:00 06/23/19 12:59 05/28/19 13:09 Pantoprazole (Protonix) 40 mg DAILY IVP 05/15/19 18:15 06/14/19 18:14 05/28/19 08:32 Chauncey Liriano MD May 28, 2019 13:23
--- NOTE | 2019-05-28 14:00 | NUR ---
NURSE NOTES: TURNED AND REPOSITIONED PATIENT. NO SIGNS OF DISTRESS OF THE MOMENT. WILL CONTINUE TO MONITOR.
--- NOTE | 2019-05-28 15:57 | NUR ---
NURSE NOTES:WOUND CARE FOLLOW-UP NOTES: Resolving MASD. Lumbar sacral area sacrum ,R and L buttocks,Posterior/medial aspects of both upper thighs are less erythematous. Single open lesion noted to perianal area. Keloid scars Sacrum,R and L ischium are intact. MASD skin fold of L breast, lateral L chest,L axilla,L brachial resolving. Erythema has resolved,dry peeling skin noted in affected areas. Bilat foot drop noted. Both heels and malleoli both feet are easily blanchable.No new skin breakdown evident.All wound treatments are effective and continued as ordered. All wound prevention protocols continued as care-planned.
--- NOTE | 2019-05-28 16:00 | NUR ---
NURSE NOTES: ORAL CARE DONE. STILL NOTED ON COPIOUS AMT OF SECRETION. WILL CONTINUE TO MONITOR.
--- NOTE | 2019-05-28 17:11 | NUR ---
NURSE NOTES: WOUND CARE DRESSING DONE. KEPT CLEAN AND DRY. WILL CONTINUE TO MONITOR.
--- NOTE | 2019-05-28 17:32 | NUR ---
INTERNAL MEDICINE NURSE PRACTITIONER NOTES SPOKE WITH PT'S DAUGHTER STEPHANIE, SHE IS CURRENTLY LEAVING A MEETING IN [place] AND WILL GO VISIT [facility]. PT IS ACCEPTED AT [facility] ROOM 23 BED C. WILL FOLLOW UP.
--- NOTE | 2019-05-28 19:17 | NUR ---
HAND-OFF: Report given to JEANNINE Gutierres.
--- NOTE | 2019-05-28 21:00 | General Progress Note ---
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 - Anemia with OB (-) stools - Resp failure, s/p Trach - OBS, vegetative obtunded unresponsive state, bedbound with contracted extremities - h/o minor GJ tube site irritation - poor Prognosis Recommendations - No plans for immune suppression at this time (risk benefit ratio in favor of holding off Rx) - abx per ID - PPI daily - Cristian BID - antibiotic ointment to GJT site PRN - aspiration precautions - elevate HOB - Vital AF 1.2 - transfuse to keep Hg > 7 - J tube feeds - G tube ---> LIS Subjective Allergies: Coded Allergies: CODEINE (Verified Allergy, Unknown, HIVES, 09/15/09) Subjective above noted d/w RN tolerating TF (+) BM Objective Last 24 Hour Vital Signs Date Time Temp Pulse Resp B/P (MAP) Pulse Ox O2 Delivery O2 Flow Rate FiO2 05/28/19 19:29 100 T-Piece 5.0 28 05/28/19 19:28 83 19 100 T-Piece 5.0 28 81 21 100 05/28/19 19:00 85 18 158/52 (87) 99 05/28/19 18:00 82 23 150/68 (95) 100 05/28/19 17:00 87 17 163/48 (86) 100 05/28/19 16:00 5.0 28 05/28/19 16:00 78 05/28/19 16:00 98.3 87 17 163/48 (86) 100 05/28/19 16:00 T-piece 5.0 T-piece 5.0 T-piece 5.0 05/28/19 15:39 76 18 100 T-Piece 5.0 28 72 18 100 05/28/19 15:00 87 17 163/48 (86) 100 05/28/19 14:00 85 16 147/51 (83) 100 05/28/19 13:01 100 T-Piece 5.0 28 05/28/19 13:00 82 23 145/48 (80) 100 05/28/19 12:00 89 05/28/19 12:00 98.2 87 20 142/48 (79) 100 05/28/19 12:00 T-piece 5.0 T-piece 5.0 T-piece 5.0 05/28/19 12:00 5.0 28 05/28/19 11:00 86 22 159/64 (95) 100 05/28/19 10:52 78 18 100 T-Piece 5.0 28 76 18 100 05/28/19 10:00 80 21 131/33 (65) 100 05/28/19 09:00 87 25 135/43 (73) 98 05/28/19 08:32 86 140/42 05/28/19 08:00 82 05/28/19 08:00 98.5 83 21 140/42 (74) 100 05/28/19 08:00 5.0 28 05/28/19 08:00 T-piece 5.0 T-piece 5.0 T-piece 5.0 05/28/19 07:40 100 T-Piece 5.0 28 05/28/19 07:40 84 20 100 T-Piece 5.0 28 78 20 100 05/28/19 07:00 84 23 153/47 (82) 100 05/28/19 06:00 84 22 141/37 (71) 100 05/28/19 05:00 82 23 137/40 (72) 100 05/28/19 04:00 T-piece 5.0 T-piece 5.0 T-piece 5.0 05/28/19 04:00 81 05/28/19 04:00 5.0 28 05/28/19 04:00 98.8 81 21 142/47 (78) 100 05/28/19 03:10 80 21 100 T-Piece 5.0 28 05/28/19 03:00 83 22 100 T-Piece 5.0 28 05/28/19 03:00 83 20 146/68 (94) 100 05/28/19 02:00 79 22 114/44 (67) 100 05/28/19 01:00 81 23 123/54 (77) 100 05/28/19 00:30 100 T-Piece 5.0 28 05/28/19 00:00 T-piece 5.0 T-piece 5.0 T-piece 5.0 05/28/19 00:00 97.9 80 21 126/38 (67) 100 05/28/19 00:00 80 05/27/19 23:29 79 22 100 T-Piece 5.0 28 05/27/19 23:19 79 21 100 T-Piece 5.0 28 05/27/19 23:00 81 23 136/48 (77) 100 05/27/19 22:00 79 20 123/42 (69) 100 05/27/19 21:00 5.0 28 05/27/19 21:00 81 19 133/45 (74) 100 Intake and Output 05/27/19 05/28/19 19:00 07:00 Intake Total 1720.00 ml 1020 ml Output Total 300 ml 500 ml Balance 1420.00 ml 520 ml Free Water 300 ml 300 ml IV Total 400.00 ml Tube Feeding 720 ml 720 ml Other 300 ml Output Urine Total 300 ml 400 ml Other 100 ml # Bowel Movements 1 1 Height (Feet): 5 Height (Inches): 3.00 Weight (Pounds): 127 Objective Debilitated AA woman non-verbal, obtunded NCAT (+) trach coarse BS RR obese abd, (+) GJT, (+) (L) trunk edema no edema (+) contractured extremities Celio Vaughan MD May 28, 2019 21:00
--- NOTE | 2019-05-28 21:30 | NUR ---
NURSE NOTES: TAWNYA; PT'S DAUGHTER REFUSED COREG MEDICATION THAT SHE SAID," BP IS OK."
--- NOTE | 2019-05-28 22:05 | NUR ---
NURSE NOTES: LE; RECEIVED PATIENT FROM JEANNINE MURRAY.
--- NOTE | 2019-05-28 22:10 | NUR ---
NURSE NOTES: LE: PATIENT OPEN EYES, RESPIRATION REGULAR, ON T-PIECE FIO2 28%, O2 SATURATION 100% NOTED, HEART RATE 80'S/MIN, SINUS RHYTHM, ABDOMEN ROUND, NON TENDER, NO BM STATUS, G J TUBE INTACT AND PATENT, G TUBE GRAVITY DRAINING, ONGOING VITAL AF 1.2 AT 60ML/HR VIA J TUBE, RESIDUE 20ML NOTED, VOIDING WITH PURE WICK STATUS, CLOUDY DARK YELLOW URINE OUTED, PPL TO RIGHT ARM, INTACT AND PATENT, ON P200 BED, KEPT HOB 30 DEGREES, SZ AND ASPIRATION PRECAUTION, ON BED ALARM AND LOCKED, MADE LOWER BED POSITION, CALL LIGHT WITHIN REACH, WILL CONTINUE TO MONITOR. Addendum: 05/29/19 at 0204 by LEIGHA LIRIANO RN NURSE NOTES: LE: PATIENT OPEN EYES, RESPIRATION REGULAR, ON T-PIECE FIO2 28%, O2 SATURATION 100% NOTED, HEART RATE 80'S/MIN, SINUS RHYTHM, ABDOMEN ROUND, NON TENDER, NO BM STATUS, G J TUBE INTACT AND PATENT, G TUBE LOW INTERMITTENT SUCTION STATUS, ONGOING VITAL AF 1.2 AT 60ML/HR VIA J TUBE, RESIDUE 20ML NOTED, VOIDING WITH PURE WICK STATUS, CLOUDY DARK YELLOW URINE OUTED, PPL TO RIGHT ARM, INTACT AND PATENT, ON P200 BED, KEPT HOB 30 DEGREES, SZ AND ASPIRATION PRECAUTION, ON BED ALARM AND LOCKED, MADE LOWER BED POSITION, CALL LIGHT WITHIN REACH, WILL CONTINUE TO MONITOR.
[2019-05-29] VITALS (25 sets, daily range): BP systolic 107–161; BP diastolic 31–122
--- NOTE | 2019-05-29 00:20 | NUR ---
NURSE NOTES: LE; REPOSITIONED, ORAL CARE WAS DONE.
--- NOTE | 2019-05-29 02:15 | NUR ---
NURSE NOTES: PATIENT ASLEEP STATUS, NO PAIN OR SOB NOTED.
[2019-05-29] MEDS: Albuterol/Ipratropium 3ml neb HHN SCH ×6 (03:25→23:06)
--- NOTE | 2019-05-29 04:01 | Progress Note ---
DATE: 05/28/2019 CARDIOLOGY PROGRESS NOTE SUBJECTIVE: Some congestion, poorly responsive, baseline comatose state, on trach collar. PHYSICAL EXAMINATION: VITAL SIGNS: Blood pressure 121/41, heart rate 81, respiratory rate 21. Monitored rhythm, sinus. LUNGS: Bilateral breath sounds. Rhonchi. HEART: Regular rhythm and rate. Normal S1, S2. ABDOMEN: Soft. EXTREMITIES: No edema. IMPRESSION: Stable for subacute facility from cardiovascular standpoint. We will continue current regimen. Medications reviewed. Bg Hagen M.D. DR: SHIRA JOB#: [id number] CC:
--- NOTE | 2019-05-29 04:30 | NUR ---
NURSE NOTES: MORNING CARE AND ORAL CARE WAS DONE.
--- NOTE | 2019-05-29 06:31 | NUR ---
NURSE NOTES: NO ACUTE DISTRESS NOTED AT THIS SHIFT.
--- NOTE | 2019-05-29 07:25 | NUR ---
HAND-OFF: Report given to Eddie BALLARD RN.
--- NOTE | 2019-05-29 07:26 | NUR ---
NURSE NOTES: Received patient from JEANNINE Sykes. Patient eyes open but she does not track. Patient showing sinus rhythm on the cardiac sonographer. Patient has shiley size 6 trach that is asymptomatic and in place. Trach connected to T-Piece with 5L oxygen and 28% FiO2. Patient tolerating with no sign of acute distress. HR 81 in normal sinus rhythm, blood pressure 142/32, SpO2 100%, and RR 22. Patient showing no sign of acute distress. Patient has gastrostomy/jejunostomy tube that is patent, asymptomatic, with J tube running vital AF at 60mL/hr at this time and G tube connected to low intermittent suction. Order in place to flush both ports every four hours. Next flush due at 0900. Will follow up and flush as ordered. Patient has purewick female external catheter in place at this time and connected to wall suction. Patient clean and dry. purewick draining and functioning well. Patient on low air loss mattress at this time. Patient has history of sacral and bilateral trochanter old wound. Patient has contractures of bilateral upper extremities at the elbow and hand. Patient legs contacted straight with foot drop noted. Will monitor and redress with wound care dressing as needed. All dressing dry and intact at this time. Patient has right upper arm 24 gauge peripheral IV that is patent, asymptomatic, and saline locked at this time. Patient repositioned, tracheal suction, and oral care performed. Bed in low position with bed alarm on and call light in reach. Will continue to monitor.
--- NOTE | 2019-05-29 07:33 | General Progress Note ---
Assessment/Plan Problem List: (1) Seizure ICD Codes: R56.9 - Unspecified convulsions SNOMED: 00489110 (2) Anemia ICD Codes: D64.9 - Anemia, unspecified SNOMED: 261598322 Qualifiers: Qualified Codes: D64.9 - Anemia, unspecified (3) Sepsis ICD Codes: A41.9 - Sepsis, unspecified organism SNOMED: 42604006, 613930127 Qualifiers: Qualified Codes: A41.9 - Sepsis, unspecified organism (4) Respiratory failure with hypoxia ICD Codes: J96.91 - Respiratory failure, unspecified with hypoxia SNOMED: 28750650091620170 Qualifiers: Qualified Codes: J96.21 - Acute and chronic respiratory failure with hypoxia (5) HCAP (healthcare-associated pneumonia) ICD Codes: J18.9 - Pneumonia, unspecified organism SNOMED: 863223033, 258988128 (6) Sacral decubitus ulcer ICD Codes: L89.159 - Pressure ulcer of sacral region, unspecified stage SNOMED: 817594513 (7) HTN (hypertension) ICD Codes: I10 - Essential (primary) hypertension SNOMED: 77437226 (8) Chronic vegetative state ICD Codes: R40.3 - Persistent vegetative state SNOMED: 78354776 (9) Chronic respiratory failure ICD Codes: J96.10 - Chronic respiratory failure, unspecified whether with hypoxia or hypercapnia SNOMED: 84575914 (10) Limited mobility ICD Codes: Z74.09 - Other reduced mobility SNOMED: 7160868 Status: stable, progressing Assessment/Plan: abx dcd by ID monitor for bleeding vent as needed resp rx suctioning monitor lytes j tube feeds g port to gravity skin care sz rx bowel regime monitor lfts stable for dc to lower level. olvin dtr who visited [place] but according to her there was no one available to give her a tour. she still prefers [place] or [place] Subjective ROS Limited/Unobtainable: No Constitutional: Reports: malaise, weakness HEENT: Reports: no symptoms Cardiovascular: Reports: no symptoms Respiratory: Reports: cough, sputum Gastrointestinal/Abdominal: Reports: difficulty swallowing Genitourinary: Reports: no symptoms Neurologic/Psychiatric: Reports: pre-existing deficit Endocrine: Reports: no symptoms Hematologic/Lymphatic: Reports: anemia Allergies: Coded Allergies: CODEINE (Verified Allergy, Unknown, HIVES, 6/17/10) All Systems: reviewed and negative except above Subjective no events. mild congestion- stable. no fever or chills. tolerating feeds. off abx now nonverbal at baseline tolerating feeds. no szs. per dtr pt responds to her by blinking Objective Last 24 Hour Vital Signs Date Time Temp Pulse Resp B/P (MAP) Pulse Ox O2 Delivery O2 Flow Rate FiO2 05/29/19 06:54 100 T-Piece 5.0 28 05/29/19 06:00 80 21 142/35 (70) 100 05/29/19 05:00 85 16 150/68 (95) 100 05/29/19 04:21 85 20 140/63 (88) 99 05/29/19 04:00 98.8 88 17 160/122 (135) 99 05/29/19 04:00 T-piece 5.0 T-piece 5.0 T-piece 5.0 05/29/19 04:00 5.0 28 05/29/19 03:50 85 05/29/19 03:25 85 22 100 T-Piece 5.0 28 84 17 100 05/29/19 03:00 87 21 152/58 (89) 100 05/29/19 02:00 82 21 123/41 (68) 100 05/29/19 01:12 100 T-Piece 5.0 28 05/29/19 01:00 84 23 136/50 (78) 100 05/29/19 00:00 99.0 83 23 132/67 (88) 100 05/29/19 00:00 T-piece 5.0 T-piece 5.0 T-piece 5.0 05/29/19 00:00 5.0 28 05/28/19 23:55 81 19 100 T-Piece 5.0 28 82 21 100 05/28/19 23:11 80 05/28/19 23:00 81 21 121/41 (67) 100 05/28/19 22:00 83 25 143/40 (74) 100 05/28/19 21:00 83 137/53 05/28/19 21:00 84 24 137/53 (81) 100 05/28/19 20:00 98.6 82 23 120/45 (70) 98 05/28/19 20:00 5.0 28 05/28/19 20:00 T-piece 5.0 T-piece 5.0 T-piece 5.0 05/28/19 19:29 100 T-Piece 5.0 28 05/28/19 19:28 83 19 100 T-Piece 5.0 28 81 21 100 05/28/19 19:16 82 05/28/19 19:00 85 18 158/52 (87) 99 05/28/19 18:00 82 23 150/68 (95) 100 05/28/19 17:00 87 17 163/48 (86) 100 05/28/19 16:00 5.0 28 05/28/19 16:00 78 05/28/19 16:00 98.3 87 17 163/48 (86) 100 05/28/19 16:00 T-piece 5.0 T-piece 5.0 T-piece 5.0 05/28/19 15:39 76 18 100 T-Piece 5.0 28 72 18 100 05/28/19 15:00 87 17 163/48 (86) 100 05/28/19 14:00 85 16 147/51 (83) 100 05/28/19 13:01 100 T-Piece 5.0 28 05/28/19 13:00 82 23 145/48 (80) 100 05/28/19 12:00 89 05/28/19 12:00 98.2 87 20 142/48 (79) 100 05/28/19 12:00 T-piece 5.0 T-piece 5.0 T-piece 5.0 05/28/19 12:00 5.0 28 05/28/19 11:00 86 22 159/64 (95) 100 05/28/19 10:52 78 18 100 T-Piece 5.0 28 76 18 100 05/28/19 10:00 80 21 131/33 (65) 100 05/28/19 09:00 87 25 135/43 (73) 98 05/28/19 08:32 86 140/42 05/28/19 08:00 82 05/28/19 08:00 98.5 83 21 140/42 (74) 100 05/28/19 08:00 5.0 28 05/28/19 08:00 T-piece 5.0 T-piece 5.0 T-piece 5.0 2/27/20 07:40 100 T-Piece 5.0 28 05/28/19 07:40 84 20 100 T-Piece 5.0 28 78 20 100 Intake and Output 05/28/19 05/29/19 19:00 07:00 Intake Total 1220 ml 1470 ml Output Total 470 ml 890 ml Balance 750 ml 580 ml Free Water 300 ml 300 ml IV Total 200 ml Tube Feeding 720 ml 720 ml Other 450 ml Output Urine Total 320 ml 650 ml Gastric Drainage Total 240 ml Other 150 ml # Bowel Movements 1 1 Height (Feet): 5 Height (Inches): 3.00 Weight (Pounds): 124 Objective General Appearance: WD/WN, confused. on trach collar Neck: supple Cardiovascular: normal rate, regular rhythm Respiratory/Chest: chest wall non-tender, rhonchi - bilaterally(minimal) Abdomen: normal bowel sounds, non tender, soft, no organomegaly Edema: no edema noted Arm (L), no edema noted Arm (R), no edema noted Leg (L), no edema noted Leg (R), no edema noted Pedal (L), no edema noted Pedal (R), no edema noted Generalized Neurologic: disoriented, unresponsive, aphasia Irvin Beltrán MD May 29, 2019 07:33
--- NOTE | 2019-05-29 08:32 | NUR ---
NURSE NOTES: Spoke with Dr Cortez in person. Ensured that he was aware of Magnesium level of 1.7 on 05/27. Suggested that repeat labs be ordered to recheck Magnesium level this morning. No verbal orders received. Dr Cortez reported that he would look at the chart and place orders if needed. Addendum: 05/29/19 at 1907 by Gisselle Perez RN Patient repositioned.
--- NOTE | 2019-05-29 08:41 | Pulmonology Progress Note ---
Assessment/Plan Assessment/Plan Impression: Fungemia KP+ history of Pneumonia/ respiratory congestion Trach, G tube, Hypertension, Cardiac disease, Dementia, Previous CVA, Seizure disorder, Respiratory failure with hypoxia Anemia, Sacral ulcer renal cyst chronic pulmonary congestion Plan antifungals antimicrobials per ID ID following and care noted overall pulmonary status slightly improved monitor imaging for change and monitor secretions Vent PRN but DNR as per family monitor labs for change and recommend further elevate head and monitor secretions monitor labs for change monitor vitals; and adjust meds; cards following; DNR. No CPR. ICU care reviewed meds noted and updated; neb therapy off load as able prognosis very poor nutrition/fees/ dietary as is; monitor residuals skin care management reviewed difficulty with placement all changes noted and discussed chronic management as able medications/laboratory data/nursing notes/ICU care reviewed in detail note reviewed and edited care discussed with RN and RT time spent x 38minutes Subjective ROS Limited/Unobtainable: Yes Allergies: Coded Allergies: CODEINE (Verified Allergy, Unknown, HIVES, 09/15/09) Subjective overnight events noted; remains poorly responsive still with congestion- needs suctioning on isolation; remains off vent for now Fungemia; noted KPC; being treated off vent ICU care issues discussed Objective Last 24 Hour Vital Signs Date Time Temp Pulse Resp B/P (MAP) Pulse Ox O2 Delivery O2 Flow Rate FiO2 05/29/19 07:03 84 21 100 T-Piece 5.0 79 19 100 05/29/19 07:03 84 21 100 T-Piece 6.0 05/29/19 07:00 80 21 138/37 (70) 100 05/29/19 06:54 100 T-Piece 5.0 05/29/19 06:00 80 21 142/35 (70) 100 05/29/19 05:00 85 16 150/68 (95) 100 05/29/19 04:21 85 20 140/63 (88) 99 05/29/19 04:00 98.8 88 17 160/122 (135) 99 05/29/19 04:00 T-piece 5.0 T-piece 5.0 T-piece 5.0 05/29/19 04:00 5.0 28 05/29/19 03:50 85 05/29/19 03:25 85 22 100 T-Piece 5.0 84 17 100 05/29/19 03:00 87 21 152/58 (89) 100 05/29/19 02:00 82 21 123/41 (68) 100 05/29/19 01:12 100 T-Piece 5.0 28 05/29/19 01:00 84 23 136/50 (78) 100 05/29/19 00:00 99.0 83 23 132/67 (88) 100 05/29/19 00:00 T-piece 5.0 T-piece 5.0 T-piece 5.0 05/29/19 00:00 5.0 28 05/28/19 23:55 81 19 100 T-Piece 5.0 28 82 21 100 05/28/19 23:11 80 05/28/19 23:00 81 21 121/41 (67) 100 05/28/19 22:00 83 25 143/40 (74) 100 05/28/19 21:00 83 137/53 05/28/19 21:00 84 24 137/53 (81) 100 05/28/19 20:00 98.6 82 23 120/45 (70) 98 05/28/19 20:00 5.0 28 05/28/19 20:00 T-piece 5.0 T-piece 5.0 T-piece 5.0 05/28/19 19:29 100 T-Piece 5.0 05/28/19 19:28 83 19 100 T-Piece 5.0 28 81 21 100 05/28/19 19:16 82 05/28/19 19:00 85 18 158/52 (87) 99 05/28/19 18:00 82 23 150/68 (95) 100 05/28/19 17:00 87 17 163/48 (86) 100 05/28/19 16:00 5.0 05/28/19 16:00 78 05/28/19 16:00 98.3 87 17 163/48 (86) 100 05/28/19 16:00 T-piece 5.0 T-piece 5.0 T-piece 5.0 05/28/19 15:39 76 18 100 T-Piece 5.0 28 72 18 100 05/28/19 15:00 87 17 163/48 (86) 100 05/28/19 14:00 85 16 147/51 (83) 100 05/28/19 13:01 100 T-Piece 5.0 28 05/28/19 13:00 82 23 145/48 (80) 100 05/28/19 12:00 89 05/28/19 12:00 98.2 87 20 142/48 (79) 100 05/28/19 12:00 T-piece 5.0 T-piece 5.0 T-piece 5.0 05/28/19 12:00 5.0 28 05/28/19 11:00 86 22 159/64 (95) 100 05/28/19 10:52 78 18 100 T-Piece 5.0 28 76 18 100 05/28/19 10:00 80 21 131/33 (65) 100 05/28/19 09:00 87 25 135/43 (73) 98 Intake and Output 05/28/19 05/29/19 19:00 07:00 Intake Total 1220 ml 1470 ml Output Total 470 ml 890 ml Balance 750 ml 580 ml Free Water 300 ml 300 ml IV Total 200 ml Tube Feeding 720 ml 720 ml Other 450 ml Output Urine Total 320 ml 650 ml Gastric Drainage Total 240 ml Other 150 ml # Bowel Movements 1 1 Objective WDWN NAD on oxygen off vent reduced breath sounds bilaterally with some rhonchi but no wheezes [id number] without MRG NABS nontender no HSM no CC some edema contractures noted nonfocal nonverbal trach and gt reviewed and edited Current Medications Medications (Trade) Dose Ordered Sig/Maicol Route PRN Reason Start Time Stop Time Status Last Admin Dose Admin Acetaminophen (Tylenol) 650 mg Q4H PRN RECTAL T>100.5 / Mild Pain 05/07/19 09:45 06/06/19 09:44 05/07/19 10:13 Albuterol/ Ipratropium (Albuterol/ Ipratropium) 3 ml Q4HRT HHN 05/27/19 03:00 06/01/19 02:59 05/29/19 06:53 Atropine Sulfate (Atropine Opth Adriana) 1 drop Q6HR SL 05/11/19 00:00 06/10/19 08:59 05/29/19 05:35 Carvedilol (Coreg) 6.25 mg EVERY 12 HOURS GT 05/23/19 21:00 06/22/19 20:59 05/28/19 08:32 Heparin Sodium (Porcine) (Heparin 5000 units/ml) 5,000 units EVERY 12 HOURS SUBQ 05/01/19 21:00 05/31/19 20:59 05/28/19 21:30 Hydralazine HCl (Apresoline) 10 mg Q4H PRN IV For High Blood Pressure 05/11/19 05:45 06/10/19 05:44 05/12/19 00:08 Magnesium Oxide (Mag-Ox 400mg) 400 mg THREE TIMES A DAY JT 05/24/19 13:00 06/23/19 12:59 05/28/19 18:00 Pantoprazole (Protonix) 40 mg DAILY IVP 05/15/19 18:15 06/14/19 18:14 05/28/19 08:32 Amaury Chan MD May 29, 2019 08:41
[2019-05-29] MEDS: Carvedilol 6.25mg Tab GT SCH ×2 (09:12→21:00)
[2019-05-29] MEDS: Magnesium Oxide 400mg tab JT SCH ×3 (09:12→18:22)
[2019-05-29] MEDS: Pantoprazole Inj IVP SCH (09:12)
[2019-05-29] MEDS: Heparin 5000 units/ml inj SUBQ SCH ×2 (09:21→21:06)
--- NOTE | 2019-05-29 09:49 | NUR ---
RD ASSESSMENT & RECOMMENDATIONS SEE CARE ACTIVITY FOR COMPLETE ASSESSMENT DAILY ESTIMATED NEEDS: Needs based on Pulmonary, wounds, bedbound/ 61kg adj 25-30 kcals/kg 8042-4145 total kcals 1.25-2 g protein/kg 76-122 g total protein 25-30 mL/kg 5241-6971 total fluid mLs NUTRITION DIAGNOSIS: * Increased kcal/prot needs R/T wound healing as evidenced by BL buttocks and sacral wound photos, refer to WC eval-> wounds resolving, sacrum healed. * Swallowing difficulty R/T respiratory status as evidenced by pt on T-collar, s/p G-J conversion ENTERAL NUTRITION RECOMMENDATIONS: VITAL AF 1.2 @ 60ml/hr x 24 hrs to provide 1440ml, 1728kcal, 108g prot, 1167ml free water - Maintain current TF as tolerated-> meets 100% est needs - HOB over 30 degrees - Rec to increase water flushes ADDITIONAL RECOMMENDATIONS: 1) Maintain calibrated bedscale wt: fluctuating daily wts 2) Wound healing: maintain Cristian BID for skin integrity -> Vit C 250 mg daily 3) Monitor for continued good TF tolerance 4) Monitor hydration status (elev BUN) -> current flush order for 1500ml free H2O daily 5) Rec NISS for improved BG control-> BG wnl
--- NOTE | 2019-05-29 09:59 | Nephrology Progress Note ---
Assessment/Plan Problem List: (1) Acute renal failure (ARF) Assessment: Cr stable (2) Chronic respiratory failure (3) Anemia (4) Sepsis Assessment Acute renal failure Respiratory failure - Trach Low Mag- Low k , Low Na Anemia UTI / Sepsis Proteinuria / HypoAlbuminemia high Trigs Sz decubs bed bound DNR Plan on Coreg now Transfused 05/09 has JT bolus Albumin as needed K and Mag and Phos supplement as needed Hydrate as needed Urine studies avoid Nephrotoxics mag K Phos supplements as needed monitor renal parameters Subjective ROS Limited/Unobtainable: Yes Objective Objective Last 24 Hour Vital Signs Date Time Temp Pulse Resp B/P (MAP) Pulse Ox O2 Delivery O2 Flow Rate FiO2 05/29/19 09:12 84 143/37 05/29/19 07:03 84 21 100 T-Piece 5.0 28 79 19 100 05/29/19 07:03 84 21 100 T-Piece 6.0 28 05/29/19 07:00 80 21 138/37 (70) 100 05/29/19 06:54 100 T-Piece 5.0 05/29/19 06:00 80 21 142/35 (70) 100 05/29/19 05:00 85 16 150/68 (95) 100 05/29/19 04:21 85 20 140/63 (88) 99 05/29/19 04:00 98.8 88 17 160/122 (135) 99 05/29/19 04:00 T-piece 5.0 T-piece 5.0 T-piece 5.0 05/29/19 04:00 5.0 28 05/29/19 03:50 85 05/29/19 03:25 85 22 100 T-Piece 5.0 84 17 100 05/29/19 03:00 87 21 152/58 (89) 100 05/29/19 02:00 82 21 123/41 (68) 100 05/29/19 01:12 100 T-Piece 5.0 28 05/29/19 01:00 84 23 136/50 (78) 100 05/29/19 00:00 99.0 83 23 132/67 (88) 100 05/29/19 00:00 T-piece 5.0 T-piece 5.0 T-piece 5.0 05/29/19 00:00 5.0 28 2/27/20 23:55 81 19 100 T-Piece 5.0 28 82 21 100 05/28/19 23:11 80 05/28/19 23:00 81 21 121/41 (67) 100 05/28/19 22:00 83 25 143/40 (74) 100 05/28/19 21:00 83 137/53 05/28/19 21:00 84 24 137/53 (81) 100 05/28/19 20:00 98.6 82 23 120/45 (70) 98 05/28/19 20:00 5.0 28 05/28/19 20:00 T-piece 5.0 T-piece 5.0 T-piece 5.0 05/28/19 19:29 100 T-Piece 5.0 28 05/28/19 19:28 83 19 100 T-Piece 5.0 28 81 21 100 05/28/19 19:16 82 05/28/19 19:00 85 18 158/52 (87) 99 05/28/19 18:00 82 23 150/68 (95) 100 05/28/19 17:00 87 17 163/48 (86) 100 05/28/19 16:00 5.0 28 05/28/19 16:00 78 05/28/19 16:00 98.3 87 17 163/48 (86) 100 05/28/19 16:00 T-piece 5.0 T-piece 5.0 T-piece 5.0 05/28/19 15:39 76 18 100 T-Piece 5.0 28 72 18 100 05/28/19 15:00 87 17 163/48 (86) 100 05/28/19 14:00 85 16 147/51 (83) 100 05/28/19 13:01 100 T-Piece 5.0 28 05/28/19 13:00 82 23 145/48 (80) 100 05/28/19 12:00 89 05/28/19 12:00 98.2 87 20 142/48 (79) 100 05/28/19 12:00 T-piece 5.0 T-piece 5.0 T-piece 5.0 05/28/19 12:00 5.0 28 05/28/19 11:00 86 22 159/64 (95) 100 05/28/19 10:52 78 18 100 T-Piece 5.0 28 76 18 100 05/28/19 10:00 80 21 131/33 (65) 100 Intake and Output 05/28/19 05/29/19 19:00 07:00 Intake Total 1220 ml 1470 ml Output Total 470 ml 890 ml Balance 750 ml 580 ml Free Water 300 ml 300 ml IV Total 200 ml Tube Feeding 720 ml 720 ml Other 450 ml Output Urine Total 320 ml 650 ml Gastric Drainage Total 240 ml Other 150 ml # Bowel Movements 1 1 Height (Feet): 5 Height (Inches): 3.00 Weight (Pounds): 124 General Appearance: no apparent distress, lethargic Respiratory/Chest: decreased breath sounds Abdomen: soft Objective no change Eric Cortez MD May 29, 2019 09:59
--- NOTE | 2019-05-29 10:35 | Infectious Diseases Prog Note ---
"Assessment/Plan Assessment/Plan antibiotics :none A 1. delano parapsilosis fungemia s/p rx 2. klebsiella sepsis s/p rx 3. respiratory failure 4. hypertension 5. CVA 6. dementia 7. rectal VRE colonization 8. leucocytosis resolved 9. pseudomonas | providencia pneumonia s/p rx P 1. continue off antibiotics Subjective ROS Limited/Unobtainable: Yes Allergies: Coded Allergies: CODEINE (Verified Allergy, Unknown, HIVES, 09/15/09) Objective Vital Signs Last 24 Hour Vital Signs Date Time Temp Pulse Resp B/P (MAP) Pulse Ox O2 Delivery O2 Flow Rate FiO2 05/29/19 10:00 80 21 140/36 (70) 97 80 05/29/19 09:12 84 143/37 05/29/19 09:00 82 20 143/37 (72) 100 82 05/29/19 08:00 98.7 83 22 142/32 (68) 100 83 05/29/19 07:03 84 21 100 T-Piece 5.0 28 79 19 100 05/29/19 07:03 84 21 100 T-Piece 6.0 05/29/19 07:00 80 21 138/37 (70) 100 05/29/19 06:54 100 T-Piece 5.0 05/29/19 06:00 80 21 142/35 (70) 100 05/29/19 05:00 85 16 150/68 (95) 100 05/29/19 04:21 85 20 140/63 (88) 99 05/29/19 04:00 98.8 88 17 160/122 (135) 99 05/29/19 04:00 T-piece 5.0 T-piece 5.0 T-piece 5.0 05/29/19 04:00 5.0 05/29/19 03:50 85 05/29/19 03:25 85 22 100 T-Piece 5.0 84 17 100 05/29/19 03:00 87 21 152/58 (89) 100 05/29/19 02:00 82 21 123/41 (68) 100 05/29/19 01:12 100 T-Piece 5.0 05/29/19 01:00 84 23 136/50 (78) 100 05/29/19 00:00 99.0 83 23 132/67 (88) 100 05/29/19 00:00 T-piece 5.0 T-piece 5.0 T-piece 5.0 05/29/19 00:00 5.0 28 05/28/19 23:55 81 19 100 T-Piece 5.0 28 82 21 100 05/28/19 23:11 80 05/28/19 23:00 81 21 121/41 (67) 100 05/28/19 22:00 83 25 143/40 (74) 100 05/28/19 21:00 83 137/53 05/28/19 21:00 84 24 137/53 (81) 100 05/28/19 20:00 98.6 82 23 120/45 (70) 98 05/28/19 20:00 5.0 28 05/28/19 20:00 T-piece 5.0 T-piece 5.0 T-piece 5.0 05/28/19 19:29 100 T-Piece 5.0 28 05/28/19 19:28 83 19 100 T-Piece 5.0 28 81 21 100 05/28/19 19:16 82 05/28/19 19:00 85 18 158/52 (87) 99 05/28/19 18:00 82 23 150/68 (95) 100 05/28/19 17:00 87 17 163/48 (86) 100 05/28/19 16:00 5.0 28 05/28/19 16:00 78 05/28/19 16:00 98.3 87 17 163/48 (86) 100 05/28/19 16:00 T-piece 5.0 T-piece 5.0 T-piece 5.0 05/28/19 15:39 76 18 100 T-Piece 5.0 28 72 18 100 05/28/19 15:00 87 17 163/48 (86) 100 05/28/19 14:00 85 16 147/51 (83) 100 05/28/19 13:01 100 T-Piece 5.0 28 05/28/19 13:00 82 23 145/48 (80) 100 05/28/19 12:00 89 05/28/19 12:00 98.2 87 20 142/48 (79) 100 05/28/19 12:00 T-piece 5.0 T-piece 5.0 T-piece 5.0 2/27/20 12:00 5.0 28 05/28/19 11:00 86 22 159/64 (95) 100 05/28/19 10:52 78 18 100 T-Piece 5.0 28 76 18 100 Height (Feet): 5 Height (Inches): 3.00 Weight (Pounds): 124 HEENT: status post trach Respiratory/Chest: crackles/rales Cardiovascular: normal rate, regular rhythm, no gallop/murmur Abdomen: soft, non tender, other - GT Extremities: no edema Current Medications Medications (Trade) Dose Ordered Sig/Maicol Route PRN Reason Start Time Stop Time Status Last Admin Dose Admin Acetaminophen (Tylenol) 650 mg Q4H PRN RECTAL T>100.5 / Mild Pain 05/07/19 09:45 06/06/19 09:44 05/07/19 10:13 Albuterol/ Ipratropium (Albuterol/ Ipratropium) 3 ml Q4HRT HHN 05/27/19 03:00 06/01/19 02:59 05/29/19 10:30 Atropine Sulfate (Atropine Opth Adriana) 1 drop Q6HR SL 05/11/19 00:00 06/10/19 08:59 05/29/19 05:35 Carvedilol (Coreg) 6.25 mg EVERY 12 HOURS GT 05/23/19 21:00 06/22/19 20:59 05/29/19 09:12 Heparin Sodium (Porcine) (Heparin 5000 units/ml) 5,000 units EVERY 12 HOURS SUBQ 05/01/19 21:00 05/31/19 20:59 05/29/19 09:21 Hydralazine HCl (Apresoline) 10 mg Q4H PRN IV For High Blood Pressure 05/11/19 05:45 06/10/19 05:44 05/12/19 00:08 Magnesium Oxide (Mag-Ox 400mg) 400 mg THREE TIMES A DAY JT 05/24/19 13:00 06/23/19 12:59 05/29/19 09:12 Pantoprazole (Protonix) 40 mg DAILY IVP 05/15/19 18:15 06/14/19 18:14 05/29/19 09:12 Geovany Yang MD May 29, 2019 10:35"
--- NOTE | 2019-05-29 12:00 | NUR ---
NURSE NOTES: Patient eyes open but she does not track. Sinus rhythm on the media monitor. T-Piece with 5L oxygen and 28% FiO2. Patient tolerating with no sign of acute distress. Patient showing no sign of acute distress. Gastrostomy/jejunostomy tube remain patent, asymptomatic, with J tube running vital AF at 60mL/hr at this time and G tube connected to low intermittent suction. Next flush due at 1300. Will follow up and flush as ordered. Purewick female external catheter remains in place at this time and connected to wall suction. Patient clean and dry. All wounds covered with dry/intact dressing. Right upper arm 24 gauge peripheral IV remains patent, asymptomatic, and saline locked at this time. Patient repositioned, tracheal suction, and oral care performed. Bed in low position with bed alarm on and call light in reach. Will continue to monitor.
--- NOTE | 2019-05-29 14:51 | NUR ---
NURSE NOTES: Report given to Jade nurse at [facility]. Patient going to room 335. Addendum: 05/29/19 at 1907 by Gisselle Perez RN Patient repositioned. Addendum: 05/29/19 at 1951 by Gisselle Perez RN Deirdre pillowcase maker reported that she would notify the patient's daughter regarding the transfer to [facility].
--- NOTE | 2019-05-29 15:07 | NUR ---
PORTER MARINA NOTES SPOKE WITH CI[facility] PT'S DAUGHTER, SHE WAS UNABLE TO VISIT THE FACILITIES DUE TO HER WORK SCHEDULE. CHIKA WILL BE IN MEETINGS UNTIL 1230 AND WILL VISIT FACILITIES AFTER THE MEETINGS. PLACED A CALL TO CHIKA @ 1500 NO ANSWER MESSAGE LEFT. WILL FOLLOW UP. Addendum: 05/29/19 at 6236 by FADY LEWIS RN RN spoke with pt's daughter Chika Menezes. Stated she will take her mother home. Endorsed to [facility] referral sent.
--- NOTE | 2019-05-29 15:33 | NUR ---
NURSE NOTES: Called and asked Dr Beltrán what medications he would lie the patient to have on discharge. Dr Beltrán reported that patient should continue to take all hospital meds when discharged. Will ensure the proper documentation is in the transfer packet for discharge.
--- NOTE | 2019-05-29 16:00 | NUR ---
NURSE NOTES: Patient eyes open but she does not track. Sinus rhythm on the rn cardiac cath. T-Piece with 5L oxygen and 28% FiO2. Patient tolerating with no sign of acute distress. Patient showing no sign of acute distress. Gastrostomy/jejunostomy tube remain patent, asymptomatic, with J tube running vital AF at 60mL/hr at this time and G tube connected to low intermittent suction. Next flush due at 1700. Will follow up and flush as ordered. Purewick female external catheter remains in place at this time and connected to wall suction. Patient clean and dry. All wound dressings replaced at this time/clean and dry. Right upper arm 24 gauge peripheral IV remains patent, asymptomatic, and saline locked at this time. Patient repositioned, tracheal suction, bed bath done, and oral care performed. Bed in low position with bed alarm on and call light in reach. Will continue to monitor.
--- NOTE | 2019-05-29 18:41 | NUR ---
NURSE NOTES: Called [facility] and reported that patient is scheduled to be picked up from here at 7pm. Patient showing no sign of acute distress. Vital signs stable. Patient repositioned and bed bath done at this time.
--- NOTE | 2019-05-29 19:09 | NUR ---
DISCHARGE DISPOSITION: PLEASE READ PATIENT TO BE DISCHARGED TO SNF PER MD ORDER [facility] [id number] [facility] T: [phone]>> CALL FOR REPORT [facility] ETA 1900 BLS IS ABLE TO ACCOMMODATE TPIECE DAUGHTER WAS PROVIDED ADDRESS AND TELEPHONE NUMBER TO SNF BY PREVIOUS CM NURSING AWARE OF DC ORDER AND DC PLAN ALL SUPERIORS AWARE OF ONGOING DC PLANNING
--- NOTE | 2019-05-29 19:45 | NUR ---
HAND-OFF: Report given to JEANNINE Sykes. Patient vital signs stable. [facility] called and reported that they would be delayed another 45 min to 1 hr. Endorsed to follow up.
--- NOTE | 2019-05-29 19:50 | NUR ---
NURSE NOTES: PATIENT OPEN EYES, RESPIRATION REGULAR, ON T-PIECE FIO2 28%, O2 SATURATION OVER 98% NOTED, HEART RATE 80'S/MIN, SINUS RHYTHM, ABDOMEN ROUND, NON TENDER, NO BM STATUS, G J TUBE INTACT AND PATENT, G TUBE LOW INTERMITTENT SUCTION STATUS, ONGOING VITAL AF 1.2 AT 60ML/HR VIA J TUBE, NO N/V NOTED, VOIDING WITH PURE WICK STATUS, CLOUDY YELLOW URINE OUTED, PPL TO RIGHT ARM, INTACT AND PATENT, ON P200 BED, KEPT HOB 30 DEGREES, SZ AND ASPIRATION PRECAUTION, ON BED ALARM AND LOCKED, MADE LOWER BED POSITION, CALL LIGHT WITHIN REACH, WILL CONTINUE TO MONITOR.
--- NOTE | 2019-05-29 20:28 | NUR ---
NURSE NOTES: LE: PT'S DAUGHTER (TAI) VISITED, CHARGE NURSE INFORMED HER REGARDING DISCHARGE TO [facility] TODAY THAT SHE WAS UPSET AND REFUSED DISCHARGE TODAY.
--- NOTE | 2019-05-29 21:26 | General Progress Note ---
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 - Anemia with OB (-) stools - Resp failure, s/p Trach - OBS, vegetative obtunded unresponsive state, bedbound with contracted extremities - h/o minor GJ tube site irritation - poor Prognosis Recommendations - No plans for immune suppression (risk benefit ratio in favor of holding off Rx ) - abx per ID - PPI daily - Cristian BID - antibiotic ointment to GJT site PRN - aspiration precautions - elevate HOB - Vital AF 1.2 - transfuse to keep Hg > 7 - J tube feeds - G tube ---> LIS Subjective Allergies: Coded Allergies: CODEINE (Verified Allergy, Unknown, HIVES, 09/15/09) Subjective above noted d/w RN tolerating TF (+) BM Objective Last 24 Hour Vital Signs Date Time Temp Pulse Resp B/P (MAP) Pulse Ox O2 Delivery O2 Flow Rate FiO2 05/29/19 19:00 80 24 131/35 (67) 100 05/29/19 18:59 100 T-Piece 5.0 05/29/19 18:59 84 19 100 T-Piece 5.0 77 22 100 05/29/19 18:00 85 23 138/61 (86) 98 05/29/19 17:00 75 25 114/31 (58) 98 05/29/19 16:00 82 05/29/19 16:00 T-piece 5.0 T-piece 5.0 T-piece 5.0 05/29/19 16:00 5.0 28 05/29/19 16:00 98.6 82 24 111/31 (57) 97 05/29/19 15:00 92 28 161/60 (93) 100 05/29/19 14:44 88 23 100 T-Piece 5.0 28 81 24 99 05/29/19 14:00 81 23 147/60 (89) 100 05/29/19 13:00 100 T-Piece 5.0 28 05/29/19 13:00 81 23 130/42 (71) 100 05/29/19 12:00 5.0 28 05/29/19 12:00 99.0 82 21 115/33 (60) 98 82 05/29/19 12:00 T-piece 5.0 T-piece 5.0 T-piece 5.0 05/29/19 12:00 83 05/29/19 11:00 81 22 127/34 (65) 96 81 05/29/19 10:40 85 22 100 T-Piece 5.0 28 79 23 98 05/29/19 10:00 80 21 140/36 (70) 97 80 05/29/19 09:12 84 143/37 05/29/19 09:00 82 20 143/37 (72) 100 82 05/29/19 08:00 T-piece 5.0 T-piece 5.0 T-piece 5.0 05/29/19 08:00 98.7 83 22 142/32 (68) 100 83 05/29/19 08:00 82 05/29/19 07:03 84 21 100 T-Piece 5.0 28 79 19 100 05/29/19 07:03 84 21 100 T-Piece 6.0 05/29/19 07:00 80 21 138/37 (70) 100 05/29/19 06:54 100 T-Piece 5.0 05/29/19 06:00 80 21 142/35 (70) 100 05/29/19 05:00 85 16 150/68 (95) 100 05/29/19 04:21 85 20 140/63 (88) 99 05/29/19 04:00 98.8 88 17 160/122 (135) 99 05/29/19 04:00 T-piece 5.0 T-piece 5.0 T-piece 5.0 05/29/19 04:00 5.0 28 05/29/19 03:50 85 05/29/19 03:25 85 22 100 T-Piece 5.0 28 84 17 100 05/29/19 03:00 87 21 152/58 (89) 100 05/29/19 02:00 82 21 123/41 (68) 100 05/29/19 01:12 100 T-Piece 5.0 05/29/19 01:00 84 23 136/50 (78) 100 05/29/19 00:00 99.0 83 23 132/67 (88) 100 05/29/19 00:00 T-piece 5.0 T-piece 5.0 T-piece 5.0 05/29/19 00:00 5.0 28 05/28/19 23:55 81 19 100 T-Piece 5.0 28 82 21 100 05/28/19 23:11 80 05/28/19 23:00 81 21 121/41 (67) 100 05/28/19 22:00 83 25 143/40 (74) 100 Intake and Output 05/28/19 05/29/19 19:00 07:00 Intake Total 1220 ml 1470 ml Output Total 470 ml 890 ml Balance 750 ml 580 ml Free Water 300 ml 300 ml IV Total 200 ml Tube Feeding 720 ml 720 ml Other 450 ml Output Urine Total 320 ml 650 ml Gastric Drainage Total 240 ml Other 150 ml # Bowel Movements 1 1 Height (Feet): 5 Height (Inches): 3.00 Weight (Pounds): 124 Objective Debilitated AA woman non-verbal, obtunded NCAT (+) trach coarse BS RR obese abd, (+) GJT, (+) (L) trunk edema no edema (+) contractured extremities Celio Vaughan MD May 29, 2019 21:26
--- NOTE | 2019-05-29 21:28 | NUR ---
NURSE NOTES: LE: CALLED BACK FROM DR. CABA, RECEIVED NEW ORDER THAT PATIENT NO DISCHARGE, CONTINUED SAME ORDER, CARRIED OUT.
--- NOTE | 2019-05-29 22:45 | NUR ---
NURSE NOTES: DAUGHTER REFUSED COREG, BP 134/46, HR 80/MIN, WILL CONTINUE TO MONITOR.
[2019-05-30] VITALS (24 sets, daily range): BP systolic 99–160; BP diastolic 32–96
--- NOTE | 2019-05-30 00:03 | NUR ---
NURSE NOTES: ORAL CARE WAS DONE, NO PAIN OR DISTRESS NOTED AT THIS TIME.
--- NOTE | 2019-05-30 00:45 | Progress Note ---
DATE: 05/29/2019 CARDIOLOGY PROGRESS NOTE SUBJECTIVE: The patient remains on ventilator support. Discharge planning in progress. OBJECTIVE: VITAL SIGNS: Blood pressure 142/35, heart rate 80, and respiratory rate 20. Monitor sinus. LUNGS: Bilateral breath sounds. CARDIAC: Regular rhythm and rate. Normal S1 and S2. ABDOMEN: Soft. GJ tube intact. EXTREMITIES: No edema. IMPRESSION: 1. Respiratory failure. 2. Advanced dementia. 3. Hypertensive heart disease. 4. Chronic diastolic congestive heart failure. 5. Sepsis with shock, now recovered. PLAN: 1. Plan of care in place. 2. We will continue to follow and fine-tune regimen based on clinical parameters. Bg Hagen M.D. DR: PIYUSH JOB#: [id number] CC:
--- NOTE | 2019-05-30 01:55 | NUR ---
NURSE NOTES: PATIENT ASLEEP STATUS, TOLERATED FEEDING, NO N/V NOTED, KEPT HOB 30 DEGREES AND ASPIRATION PRECAUTION, WILL CONTINUE PLAN OF CARE.
[2019-05-30] MEDS: Albuterol/Ipratropium 3ml neb HHN SCH ×6 (03:03→23:11)
--- NOTE | 2019-05-30 04:10 | NUR ---
NURSE NOTES: le: MORNING CARE WAS DONE, NO DISTRESS NOTED WHILE MORNING CARE.
[2019-05-30 05:45] LABS: BASOPHILS % (AUTO) 0.7 % (0.0-2.0); EOSINOPHILS % (AUTO) 4.3 % (0.0-3.0); HEMOGLOBIN 8.8 G/DL (12.0-16.0); LYMPHOCYTES % (AUTO) 33.5 % (20.0-45.0); MEAN CORPUSCULAR VOLUME 87 FL (80-99); MONOCYTES % (AUTO) 3.1 % (1.0-10.0); NEUTROPHILS % (AUTO) 58.3 % (45.0-75.0); PLATELET COUNT 332 K/UL (150-450); RED CELL DISTRIBUTION WIDTH 14.1 % (11.6-14.8); WHITE BLOOD COUNT 9.6 K/UL (4.8-10.8)
[2019-05-30 06:33] LABS: ALANINE AMINOTRANSFERASE 38 U/L (12-78); ALBUMIN 2.7 G/DL (3.4-5.0); ALBUMIN/GLOBULIN RATIO 0.5 (1.0-2.7); ALKALINE PHOSPHATASE 146 U/L (46-116); ANION GAP 7 mmol/L (5-15); ASPARTATE AMINO TRANSFERASE 23 U/L (15-37); BILIRUBIN,TOTAL 0.2 MG/DL (0.2-1.0); BLOOD UREA NITROGEN 40 mg/dL (7-18); CALCIUM 9.3 MG/DL (8.5-10.1); CARBON DIOXIDE 30 MMOL/L (21-32); CHLORIDE 104 MMOL/L (98-107); CREATININE 0.8 MG/DL (0.55-1.30); POTASSIUM 4.4 MMOL/L (3.5-5.1); SODIUM 141 MMOL/L (136-145)
--- NOTE | 2019-05-30 06:35 | NUR ---
NURSE NOTES: NO ACUTE DISTRESS NOTED AT THIS SHIFT.
--- NOTE | 2019-05-30 07:12 | NUR ---
HAND-OFF: Report given to JEANNINE MEADE.
--- NOTE | 2019-05-30 07:13 | NUR ---
NURSE NOTES: Pt received from JEANNINE Sykes without cardiopulmonary distress noted. Pt is awake in bed, obtunded, opens spontaneously, pupils are equal and round 4mm and sluggish to light reaction. Pt is SR to washing machine striper. radial pulses palpable 2+ bilaterally and dorsalis pedis pulses 2+ bilaterally. cap refill< 3 sec. Pt noted with T-piece on 5L O2 with FiO2 28%. Lung sounds noted diminished to bilat lower lung lobes. Bilat upper lung lobes noted with fine crackles. GT noted with dry and intact dressing hooked to low intermittent suction with brown, cloudy gastric secretions. JT running Vital AF 1.2 at 60 cc/hr. no nausea or vomiting noted. Abd is round, non-tender, with active bowel sounds to all quadrants. Purewick noted draining yellow urine. Skin alterations noted. Pt has a right elbow 24g IV saline locked. Bed in lowest position, alarm on, side rails up x 2 and padded per seizure precaution, call light within reach, will continue to monitor. Addendum: 05/30/19 at 0902 by Sandy Chi RN Amendment: GT secretion noted cloudy yellow (not brown)
--- NOTE | 2019-05-30 08:00 | NUR ---
NURSE NOTES: Dr Beltrán and Clement at bedside assessing pt and discussing care plan.
--- NOTE | 2019-05-30 08:16 | General Progress Note ---
Assessment/Plan Problem List: (1) Seizure ICD Codes: R56.9 - Unspecified convulsions SNOMED: 03203463 (2) Anemia ICD Codes: D64.9 - Anemia, unspecified SNOMED: 224307413 Qualifiers: Qualified Codes: D64.9 - Anemia, unspecified (3) Sepsis ICD Codes: A41.9 - Sepsis, unspecified organism SNOMED: 16580088, 644088203 Qualifiers: Qualified Codes: A41.9 - Sepsis, unspecified organism (4) Respiratory failure with hypoxia ICD Codes: J96.91 - Respiratory failure, unspecified with hypoxia SNOMED: 90183050891238516 Qualifiers: Qualified Codes: J96.21 - Acute and chronic respiratory failure with hypoxia (5) HCAP (healthcare-associated pneumonia) ICD Codes: J18.9 - Pneumonia, unspecified organism SNOMED: 150446878, 674172455 (6) Sacral decubitus ulcer ICD Codes: L89.159 - Pressure ulcer of sacral region, unspecified stage SNOMED: 064988096 (7) HTN (hypertension) ICD Codes: I10 - Essential (primary) hypertension SNOMED: 57495813 (8) Chronic vegetative state ICD Codes: R40.3 - Persistent vegetative state SNOMED: 04659226 (9) Chronic respiratory failure ICD Codes: J96.10 - Chronic respiratory failure, unspecified whether with hypoxia or hypercapnia SNOMED: 29759313 (10) Limited mobility ICD Codes: Z74.09 - Other reduced mobility SNOMED: 5193451 Status: stable, progressing Assessment/Plan: abx dcd by ID monitor for bleeding vent as needed resp rx suctioning monitor lytes j tube feeds g port to gravity skin care sz rx bowel regime monitor lfts stable for dc to lower level. olvin dtmichael who visited [facility] but according to her there was no one available to give her a tour. [facility] she agrees to [place] if bed available there Subjective ROS Limited/Unobtainable: No Constitutional: Reports: malaise, weakness HEENT: Reports: no symptoms Cardiovascular: Reports: no symptoms Respiratory: Reports: cough, shortness of breath, sputum Gastrointestinal/Abdominal: Reports: difficulty swallowing Genitourinary: Reports: no symptoms Neurologic/Psychiatric: Reports: pre-existing deficit, seizure Endocrine: Reports: no symptoms Hematologic/Lymphatic: Reports: anemia Allergies: Coded Allergies: CODEINE (Verified Allergy, Unknown, HIVES, 09/15/09) All Systems: reviewed and negative except above Subjective dtr refused transfer to [facility] stating she did not agree with the transfer. threatened to [facility] the hospital and call the "media". Objective Last 24 Hour Vital Signs Date Time Temp Pulse Resp B/P (MAP) Pulse Ox O2 Delivery O2 Flow Rate FiO2 05/30/19 07:01 100 T-Piece 5.0 28 05/30/19 07:01 79 22 100 T-Piece 5.0 28 80 24 100 05/30/19 07:00 84 22 135/38 (70) 100 05/30/19 06:00 82 24 130/38 (68) 98 05/30/19 05:00 80 22 133/36 (68) 99 05/30/19 04:00 5.0 28 05/30/19 04:00 98.7 81 23 124/43 (70) 99 05/30/19 04:00 T-piece 5.0 T-piece 5.0 T-piece 5.0 05/30/19 03:44 80 05/30/19 03:04 85 18 100 T-Piece 5.0 28 84 20 99 05/30/19 03:00 87 20 139/32 (67) 100 05/30/19 02:00 80 23 138/32 (67) 99 05/30/19 01:12 100 T-Piece 5.0 05/30/19 01:00 85 20 156/63 (94) 100 05/30/19 00:00 T-piece 5.0 T-piece 5.0 T-piece 5.0 05/30/19 00:00 5.0 28 05/30/19 00:00 98.7 81 24 129/42 (71) 99 05/29/19 23:41 80 05/29/19 23:07 76 18 100 T-Piece 5.0 28 80 24 100 05/29/19 23:00 81 23 141/38 (72) 100 05/29/19 22:00 82 22 134/46 (75) 100 05/29/19 21:00 84 20 137/58 (84) 99 05/29/19 21:00 83 134/46 05/29/19 20:35 78 05/29/19 20:00 T-piece 5.0 T-piece 5.0 T-piece 5.0 05/29/19 20:00 5.0 28 05/29/19 20:00 98.5 80 23 107/34 (58) 98 05/29/19 19:00 80 24 131/35 (67) 100 05/29/19 18:59 100 T-Piece 5.0 28 05/29/19 18:59 84 19 100 T-Piece 5.0 28 77 22 100 05/29/19 18:00 85 23 138/61 (86) 98 05/29/19 17:00 75 25 114/31 (58) 98 05/29/19 16:00 82 05/29/19 16:00 T-piece 5.0 T-piece 5.0 T-piece 5.0 05/29/19 16:00 5.0 28 05/29/19 16:00 98.6 82 24 111/31 (57) 97 05/29/19 15:00 92 28 161/60 (93) 100 05/29/19 14:44 88 23 100 T-Piece 5.0 28 81 24 99 05/29/19 14:00 81 23 147/60 (89) 100 05/29/19 13:00 100 T-Piece 5.0 28 05/29/19 13:00 81 23 130/42 (71) 100 05/29/19 12:00 5.0 28 05/29/19 12:00 99.0 82 21 115/33 (60) 98 82 05/29/19 12:00 T-piece 5.0 T-piece 5.0 T-piece 5.0 05/29/19 12:00 83 05/29/19 11:00 81 22 127/34 (65) 96 81 05/29/19 10:40 85 22 100 T-Piece 5.0 28 79 23 98 05/29/19 10:00 80 21 140/36 (70) 97 80 05/29/19 09:12 84 143/37 05/29/19 09:00 82 20 143/37 (72) 100 82 Intake and Output 05/29/19 05/30/19 19:00 07:00 Intake Total 1470 ml 1470 ml Output Total 400 ml 1100 ml Balance 1070 ml 370 ml Free Water 300 ml 300 ml Tube Feeding 720 ml 720 ml Other 450 ml 450 ml Output Urine Total 400 ml 850 ml Gastric Drainage Total 250 ml # Voids 1 # Bowel Movements 1 2 Laboratory Tests 05/30/19 04:46: White Blood Count 9.6, Red Blood Count 3.10L, Hemoglobin 8.8L, Hematocrit 27.0L , Mean Corpuscular Volume 87, Mean Corpuscular Hemoglobin 28.4, Mean Corpuscular Hemoglobin Concent 32.6, Red Cell Distribution Width 14.1, Platelet Count 332, Mean Platelet Volume 4.9L, Neutrophils (%) (Auto) 58.3, Lymphocytes ( %) (Auto) 33.5, Monocytes (%) (Auto) 3.1, Eosinophils (%) (Auto) 4.3H, Basophils (%) (Auto) 0.7, Sodium Level 141, Potassium Level 4.4, Chloride Level 104, Carbon Dioxide Level 30, Anion Gap 7, Blood Urea Nitrogen 40H, Creatinine 0.8, Estimat Glomerular Filtration Rate > 60, Glucose Level 110H, Calcium Level 9.3, Magnesium Level 1.6L, Total Bilirubin 0.2, Aspartate Amino Transf (AST/SGOT ) 23, Alanine Aminotransferase (ALT/SGPT) 38, Alkaline Phosphatase 146H, C- Reactive Protein, Quantitative 1.5H, Pro-B-Type Natriuretic Peptide 346H, Total Protein 8.1, Albumin 2.7L, Globulin 5.4, Albumin/Globulin Ratio 0.5L Height (Feet): 5 Height (Inches): 3.00 Weight (Pounds): 123 Objective General Appearance: WD/WN, confused. on trach collar Neck: supple Cardiovascular: normal rate, regular rhythm Respiratory/Chest: chest wall non-tender, rhonchi - bilaterally(minimal) Abdomen: normal bowel sounds, non tender, soft, no organomegaly Edema: no edema noted Arm (L), no edema noted Arm (R), no edema noted Leg (L), no edema noted Leg (R), no edema noted Pedal (L), no edema noted Pedal (R), no edema noted Generalized Neurologic: disoriented, unresponsive, aphasia Irvin Beltrán MD May 30, 2019 08:16
--- NOTE | 2019-05-30 08:30 | NUR ---
NURSE NOTES: Dr Cortez at bedside assessing pt.
[2019-05-30] MEDS: Magnesium Oxide 400mg tab JT SCH ×3 (08:43→17:01)
[2019-05-30] MEDS: Pantoprazole Inj IVP SCH (08:43)
[2019-05-30] MEDS: Carvedilol 6.25mg Tab GT SCH ×2 (08:44→20:45)
[2019-05-30] MEDS: Heparin 5000 units/ml inj SUBQ SCH ×2 (08:45→20:46)
--- NOTE | 2019-05-30 09:44 | Infectious Diseases Prog Note ---
Assessment/Plan Assessment/Plan A 1.Pseudomonas & Providencia pneumonia treated 2.Chronic respiratory failure 3. hypertension 4. CVA 5. dementia 6. sacral decubitus ulcer 7. rectal VRE colonization 8. Anemia 9. Proteus UTI treated 10. Acute renal failure 11. Sepsis with Klebsiella ( KPC), treated 12.delano Parapsilosis sepsis treated P 1 Observe off antibiotic Subjective ROS Limited/Unobtainable: Yes Allergies: Coded Allergies: CODEINE (Verified Allergy, Unknown, HIVES, 09/15/09) Objective Vital Signs Last 24 Hour Vital Signs Date Time Temp Pulse Resp B/P (MAP) Pulse Ox O2 Delivery O2 Flow Rate FiO2 05/30/19 09:00 82 19 145/41 (75) 99 05/30/19 08:44 80 110/37 05/30/19 08:00 5.0 28 05/30/19 08:00 T-piece 5.0 T-piece 5.0 T-piece 5.0 05/30/19 08:00 98.9 80 23 110/37 (61) 98 05/30/19 07:01 100 T-Piece 5.0 05/30/19 07:01 79 22 100 T-Piece 5.0 28 80 24 100 05/30/19 07:00 84 22 135/38 (70) 100 05/30/19 06:00 82 24 130/38 (68) 98 05/30/19 05:00 80 22 133/36 (68) 99 05/30/19 04:00 5.0 28 05/30/19 04:00 98.7 81 23 124/43 (70) 99 05/30/19 04:00 T-piece 5.0 T-piece 5.0 T-piece 5.0 05/30/19 03:44 80 05/30/19 03:04 85 18 100 T-Piece 5.0 28 84 20 99 05/30/19 03:00 87 20 139/32 (67) 100 05/30/19 02:00 80 23 138/32 (67) 99 05/30/19 01:12 100 T-Piece 5.0 28 05/30/19 01:00 85 20 156/63 (94) 100 05/30/19 00:00 T-piece 5.0 T-piece 5.0 T-piece 5.0 05/30/19 00:00 5.0 28 05/30/19 00:00 98.7 81 24 129/42 (71) 99 05/29/19 23:41 80 05/29/19 23:07 76 18 100 T-Piece 5.0 28 80 24 100 05/29/19 23:00 81 23 141/38 (72) 100 05/29/19 22:00 82 22 134/46 (75) 100 05/29/19 21:00 84 20 137/58 (84) 99 05/29/19 21:00 83 134/46 05/29/19 20:35 78 05/29/19 20:00 T-piece 5.0 T-piece 5.0 T-piece 5.0 05/29/19 20:00 5.0 28 05/29/19 20:00 98.5 80 23 107/34 (58) 98 05/29/19 19:00 80 24 131/35 (67) 100 05/29/19 18:59 100 T-Piece 5.0 05/29/19 18:59 84 19 100 T-Piece 5.0 77 22 100 05/29/19 18:00 85 23 138/61 (86) 98 05/29/19 17:00 75 25 114/31 (58) 98 05/29/19 16:00 82 05/29/19 16:00 T-piece 5.0 T-piece 5.0 T-piece 5.0 05/29/19 16:00 5.0 28 05/29/19 16:00 98.6 82 24 111/31 (57) 97 05/29/19 15:00 92 28 161/60 (93) 100 05/29/19 14:44 88 23 100 T-Piece 5.0 28 81 24 99 05/29/19 14:00 81 23 147/60 (89) 100 05/29/19 13:00 100 T-Piece 5.0 28 05/29/19 13:00 81 23 130/42 (71) 100 05/29/19 12:00 5.0 28 05/29/19 12:00 99.0 82 21 115/33 (60) 98 82 05/29/19 12:00 T-piece 5.0 T-piece 5.0 T-piece 5.0 05/29/19 12:00 83 05/29/19 11:00 81 22 127/34 (65) 96 81 05/29/19 10:40 85 22 100 T-Piece 5.0 28 79 23 98 05/29/19 10:00 80 21 140/36 (70) 97 80 Height (Feet): 5 Height (Inches): 3.00 Weight (Pounds): 123 General Appearance: no acute distress HEENT: mucous membranes moist, status post trach Respiratory/Chest: other - coarse sounds on T bar Cardiovascular: normal rate Abdomen: soft, non tender, other - GJ tube Extremities: no edema Skin: ulcers Neurologic/Psychiatric: aphasia Laboratory Tests Test 05/30/19 04:46 White Blood Count 9.6 K/UL (4.8-10.8) Red Blood Count 3.10 M/UL (4.20-5.40) L Hemoglobin 8.8 G/DL (12.0-16.0) L Hematocrit 27.0 % (37.0-47.0) L Mean Corpuscular Volume 87 FL (80-99) Mean Corpuscular Hemoglobin 28.4 PG (27.0-31.0) Mean Corpuscular Hemoglobin Concent 32.6 G/DL (32.0-36.0) Red Cell Distribution Width 14.1 % (11.6-14.8) Platelet Count 332 K/UL (150-450) Mean Platelet Volume 4.9 FL (6.5-10.1) L Neutrophils (%) (Auto) 58.3 % (45.0-75.0) Lymphocytes (%) (Auto) 33.5 % (20.0-45.0) Monocytes (%) (Auto) 3.1 % (1.0-10.0) Eosinophils (%) (Auto) 4.3 % (0.0-3.0) H Basophils (%) (Auto) 0.7 % (0.0-2.0) Sodium Level 141 MMOL/L (136-145) Potassium Level 4.4 MMOL/L (3.5-5.1) Chloride Level 104 MMOL/L (98-107) Carbon Dioxide Level 30 MMOL/L (21-32) Anion Gap 7 mmol/L (5-15) Blood Urea Nitrogen 40 mg/dL (7-18) H Creatinine 0.8 MG/DL (0.55-1.30) Estimat Glomerular Filtration Rate > 60 mL/min (>60) Glucose Level 110 MG/DL (74-106) H Calcium Level 9.3 MG/DL (8.5-10.1) Magnesium Level 1.6 MG/DL (1.8-2.4) L Total Bilirubin 0.2 MG/DL (0.2-1.0) Aspartate Amino Transf (AST/SGOT) 23 U/L (15-37) Alanine Aminotransferase (ALT/SGPT) 38 U/L (12-78) Alkaline Phosphatase 146 U/L (46-116) H C-Reactive Protein, Quantitative 1.5 mg/dL (0.00-0.90) H Pro-B-Type Natriuretic Peptide 346 pg/mL (0-125) H Total Protein 8.1 G/DL (6.4-8.2) Albumin 2.7 G/DL (3.4-5.0) L Globulin 5.4 g/dL Albumin/Globulin Ratio 0.5 (1.0-2.7) L Current Medications Medications (Trade) Dose Ordered Sig/Maicol Route PRN Reason Start Time Stop Time Status Last Admin Dose Admin Acetaminophen (Tylenol) 650 mg Q4H PRN RECTAL T>100.5 / Mild Pain 05/07/19 09:45 06/06/19 09:44 05/07/19 10:13 Albuterol/ Ipratropium (Albuterol/ Ipratropium) 3 ml Q4HRT HHN 05/27/19 03:00 06/01/19 02:59 05/30/19 07:01 Atropine Sulfate (Atropine Opth Adriana) 1 drop Q6HR SL 05/11/19 00:00 06/10/19 08:59 05/30/19 06:03 Carvedilol (Coreg) 6.25 mg EVERY 12 HOURS GT 05/23/19 21:00 06/22/19 20:59 05/30/19 08:44 Heparin Sodium (Porcine) (Heparin 5000 units/ml) 5,000 units EVERY 12 HOURS SUBQ 05/01/19 21:00 05/31/19 20:59 05/30/19 08:45 Hydralazine HCl (Apresoline) 10 mg Q4H PRN IV For High Blood Pressure 05/11/19 05:45 06/10/19 05:44 05/12/19 00:08 Magnesium Oxide (Mag-Ox 400mg) 400 mg THREE TIMES A DAY JT 05/24/19 13:00 06/23/19 12:59 05/30/19 08:43 Magnesium Sulfate 100 ml @ 100 mls/hr Q1H IVPB 05/30/19 08:00 05/30/19 11:59 05/30/19 08:43 Pantoprazole (Protonix) 40 mg DAILY IVP 05/15/19 18:15 06/14/19 18:14 05/30/19 08:43 Chaucney Liriano MD May 30, 2019 09:44
--- NOTE | 2019-05-30 09:46 | NUR ---
NURSE NOTES: Dr Jm Liriano at bedside assessing pt.
--- NOTE | 2019-05-30 10:00 | NUR ---
NURSE NOTES: Pt repositioned and orally suctioned, no acute distress noted at this time.
--- NOTE | 2019-05-30 10:27 | Nephrology Progress Note ---
Assessment/Plan Problem List: (1) Acute renal failure (ARF) Assessment: Cr stable (2) Chronic respiratory failure (3) Anemia (4) Sepsis Assessment Acute renal failure Respiratory failure - Trach Low Mag- Low k , Low Na Anemia UTI / Sepsis Proteinuria / HypoAlbuminemia high Trigs Sz decubs bed bound DNR Plan on Coreg now discussed with Dr Beltrán Transfused 05/09 has JT bolus Albumin as needed K and Mag and Phos supplement as needed Hydrate as needed Urine studies avoid Nephrotoxics mag K Phos supplements as needed monitor renal parameters Subjective ROS Limited/Unobtainable: No Constitutional: Reports: malaise Objective Objective Last 24 Hour Vital Signs Date Time Temp Pulse Resp B/P (MAP) Pulse Ox O2 Delivery O2 Flow Rate FiO2 05/30/19 10:00 80 23 129/38 (68) 97 05/30/19 09:00 82 19 145/41 (75) 99 05/30/19 08:44 80 110/37 05/30/19 08:00 5.0 28 05/30/19 08:00 T-piece 5.0 T-piece 5.0 T-piece 5.0 05/30/19 08:00 98.9 80 23 110/37 (61) 98 05/30/19 08:00 99 05/30/19 07:01 100 T-Piece 5.0 28 05/30/19 07:01 79 22 100 T-Piece 5.0 28 80 24 100 05/30/19 07:00 84 22 135/38 (70) 100 05/30/19 06:00 82 24 130/38 (68) 98 05/30/19 05:00 80 22 133/36 (68) 99 05/30/19 04:00 5.0 28 05/30/19 04:00 98.7 81 23 124/43 (70) 99 05/30/19 04:00 T-piece 5.0 T-piece 5.0 T-piece 5.0 05/30/19 03:44 80 05/30/19 03:04 85 18 100 T-Piece 5.0 28 84 20 99 05/30/19 03:00 87 20 139/32 (67) 100 05/30/19 02:00 80 23 138/32 (67) 99 05/30/19 01:12 100 T-Piece 5.0 28 05/30/19 01:00 85 20 156/63 (94) 100 05/30/19 00:00 T-piece 5.0 T-piece 5.0 T-piece 5.0 05/30/19 00:00 5.0 28 05/30/19 00:00 98.7 81 24 129/42 (71) 99 05/29/19 23:41 80 05/29/19 23:07 76 18 100 T-Piece 5.0 28 80 24 100 05/29/19 23:00 81 23 141/38 (72) 100 05/29/19 22:00 82 22 134/46 (75) 100 05/29/19 21:00 84 20 137/58 (84) 99 05/29/19 21:00 83 134/46 05/29/19 20:35 78 05/29/19 20:00 T-piece 5.0 T-piece 5.0 T-piece 5.0 05/29/19 20:00 5.0 28 05/29/19 20:00 98.5 80 23 107/34 (58) 98 05/29/19 19:00 80 24 131/35 (67) 100 05/29/19 18:59 100 T-Piece 5.0 05/29/19 18:59 84 19 100 T-Piece 5.0 28 77 22 100 05/29/19 18:00 85 23 138/61 (86) 98 05/29/19 17:00 75 25 114/31 (58) 98 05/29/19 16:00 82 05/29/19 16:00 T-piece 5.0 T-piece 5.0 T-piece 5.0 05/29/19 16:00 5.0 28 05/29/19 16:00 98.6 82 24 111/31 (57) 97 05/29/19 15:00 92 28 161/60 (93) 100 05/29/19 14:44 88 23 100 T-Piece 5.0 28 81 24 99 05/29/19 14:00 81 23 147/60 (89) 100 05/29/19 13:00 100 T-Piece 5.0 28 05/29/19 13:00 81 23 130/42 (71) 100 05/29/19 12:00 5.0 28 05/29/19 12:00 99.0 82 21 115/33 (60) 98 82 05/29/19 12:00 T-piece 5.0 T-piece 5.0 T-piece 5.0 05/29/19 12:00 83 05/29/19 11:00 81 22 127/34 (65) 96 81 05/29/19 10:40 85 22 100 T-Piece 5.0 28 79 23 98 Intake and Output 05/29/19 05/30/19 19:00 07:00 Intake Total 1470 ml 1470 ml Output Total 400 ml 1100 ml Balance 1070 ml 370 ml Free Water 300 ml 300 ml Tube Feeding 720 ml 720 ml Other 450 ml 450 ml Output Urine Total 400 ml 850 ml Gastric Drainage Total 250 ml # Voids 1 # Bowel Movements 1 2 Laboratory Tests 05/30/19 04:46: White Blood Count 9.6, Red Blood Count 3.10L, Hemoglobin 8.8L, Hematocrit 27.0L , Mean Corpuscular Volume 87, Mean Corpuscular Hemoglobin 28.4, Mean Corpuscular Hemoglobin Concent 32.6, Red Cell Distribution Width 14.1, Platelet Count 332, Mean Platelet Volume 4.9L, Neutrophils (%) (Auto) 58.3, Lymphocytes ( %) (Auto) 33.5, Monocytes (%) (Auto) 3.1, Eosinophils (%) (Auto) 4.3H, Basophils (%) (Auto) 0.7, Sodium Level 141, Potassium Level 4.4, Chloride Level 104, Carbon Dioxide Level 30, Anion Gap 7, Blood Urea Nitrogen 40H, Creatinine 0.8, Estimat Glomerular Filtration Rate > 60, Glucose Level 110H, Calcium Level 9.3, Magnesium Level 1.6L, Total Bilirubin 0.2, Aspartate Amino Transf (AST/SGOT ) 23, Alanine Aminotransferase (ALT/SGPT) 38, Alkaline Phosphatase 146H, C- Reactive Protein, Quantitative 1.5H, Pro-B-Type Natriuretic Peptide 346H, Total Protein 8.1, Albumin 2.7L, Globulin 5.4, Albumin/Globulin Ratio 0.5L Height (Feet): 5 Height (Inches): 3.00 Weight (Pounds): 123 General Appearance: no apparent distress Objective no change Eric Cortez MD May 30, 2019 10:27
--- NOTE | 2019-05-30 10:31 | Pulmonology Progress Note ---
Assessment/Plan Assessment/Plan Impression: Fungemia KP+ history of Pneumonia/ respiratory congestion Trach, G tube, Hypertension, Cardiac disease, Dementia, Previous CVA, Seizure disorder, Respiratory failure with hypoxia Anemia, Sacral ulcer renal cyst chronic pulmonary congestion Plan antifungals antimicrobials per ID ID following and care noted overall pulmonary status slightly improved monitor imaging for change and monitor secretions Vent PRN but DNR as per family monitor labs for change and recommend further elevate head and monitor secretions monitor labs for change monitor vitals; and adjust meds; cards following; DNR. No CPR. ICU care reviewed meds noted and updated; neb therapy off load as able prognosis very poor nutrition/fees/ dietary as is; monitor residuals skin care management reviewed difficulty with placement all changes noted and discussed chronic management as able medications/laboratory data/nursing notes/ICU care reviewed in detail note reviewed and edited care discussed with RN and RT time spent x 38minutes Subjective ROS Limited/Unobtainable: Yes Allergies: Coded Allergies: CODEINE (Verified Allergy, Unknown, HIVES, 09/15/09) Subjective overnight events noted; remains poorly responsive still with congestion- needs suctioning on isolation; remains off vent for now Fungemia; noted KPC; being treated off vent ICU care issues discussed Objective Last 24 Hour Vital Signs Date Time Temp Pulse Resp B/P (MAP) Pulse Ox O2 Delivery O2 Flow Rate FiO2 05/30/19 10:00 80 23 129/38 (68) 97 05/30/19 09:00 82 19 145/41 (75) 99 05/30/19 08:44 80 110/37 05/30/19 08:00 5.0 28 05/30/19 08:00 T-piece 5.0 T-piece 5.0 T-piece 5.0 05/30/19 08:00 98.9 80 23 110/37 (61) 98 05/30/19 08:00 99 05/30/19 07:01 100 T-Piece 5.0 28 05/30/19 07:01 79 22 100 T-Piece 5.0 28 80 24 100 05/30/19 07:00 84 22 135/38 (70) 100 05/30/19 06:00 82 24 130/38 (68) 98 05/30/19 05:00 80 22 133/36 (68) 99 05/30/19 04:00 5.0 28 05/30/19 04:00 98.7 81 23 124/43 (70) 99 05/30/19 04:00 T-piece 5.0 T-piece 5.0 T-piece 5.0 05/30/19 03:44 80 05/30/19 03:04 85 18 100 T-Piece 5.0 28 84 20 99 05/30/19 03:00 87 20 139/32 (67) 100 05/30/19 02:00 80 23 138/32 (67) 99 05/30/19 01:12 100 T-Piece 5.0 28 05/30/19 01:00 85 20 156/63 (94) 100 05/30/19 00:00 T-piece 5.0 T-piece 5.0 T-piece 5.0 05/30/19 00:00 5.0 28 05/30/19 00:00 98.7 81 24 129/42 (71) 99 05/29/19 23:41 80 05/29/19 23:07 76 18 100 T-Piece 5.0 28 80 24 100 05/29/19 23:00 81 23 141/38 (72) 100 05/29/19 22:00 82 22 134/46 (75) 100 05/29/19 21:00 84 20 137/58 (84) 99 05/29/19 21:00 83 134/46 05/29/19 20:35 78 05/29/19 20:00 T-piece 5.0 T-piece 5.0 T-piece 5.0 05/29/19 20:00 5.0 28 05/29/19 20:00 98.5 80 23 107/34 (58) 98 05/29/19 19:00 80 24 131/35 (67) 100 05/29/19 18:59 100 T-Piece 5.0 05/29/19 18:59 84 19 100 T-Piece 5.0 28 77 22 100 05/29/19 18:00 85 23 138/61 (86) 98 05/29/19 17:00 75 25 114/31 (58) 98 05/29/19 16:00 82 05/29/19 16:00 T-piece 5.0 T-piece 5.0 T-piece 5.0 05/29/19 16:00 5.0 28 05/29/19 16:00 98.6 82 24 111/31 (57) 97 05/29/19 15:00 92 28 161/60 (93) 100 05/29/19 14:44 88 23 100 T-Piece 5.0 28 81 24 99 05/29/19 14:00 81 23 147/60 (89) 100 05/29/19 13:00 100 T-Piece 5.0 28 05/29/19 13:00 81 23 130/42 (71) 100 05/29/19 12:00 5.0 28 05/29/19 12:00 99.0 82 21 115/33 (60) 98 82 05/29/19 12:00 T-piece 5.0 T-piece 5.0 T-piece 5.0 05/29/19 12:00 83 05/29/19 11:00 81 22 127/34 (65) 96 81 05/29/19 10:40 85 22 100 T-Piece 5.0 28 79 23 98 Intake and Output 05/29/19 05/30/19 19:00 07:00 Intake Total 1470 ml 1470 ml Output Total 400 ml 1100 ml Balance 1070 ml 370 ml Free Water 300 ml 300 ml Tube Feeding 720 ml 720 ml Other 450 ml 450 ml Output Urine Total 400 ml 850 ml Gastric Drainage Total 250 ml # Voids 1 # Bowel Movements 1 2 Objective WDWN NAD on oxygen off vent reduced breath sounds bilaterally with some rhonchi but no wheezes [id number] without MRG NABS nontender no HSM no CC some edema contractures noted nonfocal nonverbal trach and gt reviewed and edited Laboratory Tests 05/30/19 04:46: White Blood Count 9.6, Red Blood Count 3.10L, Hemoglobin 8.8L, Hematocrit 27.0L , Mean Corpuscular Volume 87, Mean Corpuscular Hemoglobin 28.4, Mean Corpuscular Hemoglobin Concent 32.6, Red Cell Distribution Width 14.1, Platelet Count 332, Mean Platelet Volume 4.9L, Neutrophils (%) (Auto) 58.3, Lymphocytes ( %) (Auto) 33.5, Monocytes (%) (Auto) 3.1, Eosinophils (%) (Auto) 4.3H, Basophils (%) (Auto) 0.7, Sodium Level 141, Potassium Level 4.4, Chloride Level 104, Carbon Dioxide Level 30, Anion Gap 7, Blood Urea Nitrogen 40H, Creatinine 0.8, Estimat Glomerular Filtration Rate > 60, Glucose Level 110H, Calcium Level 9.3, Magnesium Level 1.6L, Total Bilirubin 0.2, Aspartate Amino Transf (AST/SGOT ) 23, Alanine Aminotransferase (ALT/SGPT) 38, Alkaline Phosphatase 146H, C- Reactive Protein, Quantitative 1.5H, Pro-B-Type Natriuretic Peptide 346H, Total Protein 8.1, Albumin 2.7L, Globulin 5.4, Albumin/Globulin Ratio 0.5L Current Medications Medications (Trade) Dose Ordered Sig/Maicol Route PRN Reason Start Time Stop Time Status Last Admin Dose Admin Acetaminophen (Tylenol) 650 mg Q4H PRN RECTAL T>100.5 / Mild Pain 05/07/19 09:45 06/06/19 09:44 05/07/19 10:13 Albuterol/ Ipratropium (Albuterol/ Ipratropium) 3 ml Q4HRT HHN 05/27/19 03:00 06/01/19 02:59 05/30/19 07:01 Atropine Sulfate (Atropine Opth Adriana) 1 drop Q6HR SL 05/11/19 00:00 06/10/19 08:59 05/30/19 06:03 Carvedilol (Coreg) 6.25 mg EVERY 12 HOURS GT 05/23/19 21:00 06/22/19 20:59 05/30/19 08:44 Heparin Sodium (Porcine) (Heparin 5000 units/ml) 5,000 units EVERY 12 HOURS SUBQ 05/01/19 21:00 05/31/19 20:59 05/30/19 08:45 Hydralazine HCl (Apresoline) 10 mg Q4H PRN IV For High Blood Pressure 05/11/19 05:45 06/10/19 05:44 05/12/19 00:08 Magnesium Oxide (Mag-Ox 400mg) 400 mg THREE TIMES A DAY JT 05/24/19 13:00 06/23/19 12:59 05/30/19 08:43 Magnesium Sulfate 100 ml @ 100 mls/hr Q1H IVPB 05/30/19 08:00 05/30/19 11:59 05/30/19 09:51 Pantoprazole (Protonix) 40 mg DAILY IVP 05/15/19 18:15 06/14/19 18:14 05/30/19 08:43 Amaury Chan MD May 30, 2019 10:31
--- NOTE | 2019-05-30 12:00 | NUR ---
NURSE NOTES: Pt repositioned and cleaned, 1 brown soft BM noted. oral care performed. Pt in no acute distress at this time.
[2019-05-30] MEDS ORDERED: Tubing IV Secondary IV ONE ×2 (12:18→12:19)
[2019-05-30] MEDS ORDERED: NS 275ml ONE ×5 (12:18→13:00)
[2019-05-30] MEDS ORDERED: Sterile Water Irrig 1000ml IRRIG ONE ×3 (12:19→12:55)
--- NOTE | 2019-05-30 13:51 | NUR ---
NURSE NOTES: Dr Madera at bedside, order placed to keep left hand resolved skin tear open to air. Addendum: 05/30/19 at 1437 by Sandy Chi RN Andrew alejo.
--- NOTE | 2019-05-30 13:53 | NUR ---
NURSE NOTES: Krista at bedside visiting pt and states she requested her written consent before pt being discharged anywhere. She also states that she prefers [facility]. Dr Beltrán made aware.
--- NOTE | 2019-05-30 13:59 | Surgery Progress Note ---
Surgery Progress Note Subjective Additional Comments no acute events had placement but daughter refused states she knows [facility] has a bed in their sub acute and wants to make a donation to that facility in order to get her mother there Objective Last 24 Hour Vital Signs Date Time Temp Pulse Resp B/P (MAP) Pulse Ox O2 Delivery O2 Flow Rate FiO2 05/30/19 13:16 98 T-Piece 5.0 28 05/30/19 13:00 88 21 160/96 (117) 99 05/30/19 12:00 T-piece 5.0 T-piece 5.0 T-piece 5.0 05/30/19 12:00 81 05/30/19 12:00 5.0 28 05/30/19 12:00 98.6 79 22 128/42 (70) 96 05/30/19 11:00 77 24 125/34 (64) 99 05/30/19 10:47 80 22 100 T-Piece 5.0 28 79 24 99 05/30/19 10:00 80 23 129/38 (68) 97 05/30/19 09:00 82 19 145/41 (75) 99 05/30/19 08:44 80 110/37 05/30/19 08:00 5.0 28 05/30/19 08:00 T-piece 5.0 T-piece 5.0 T-piece 5.0 05/30/19 08:00 98.9 80 23 110/37 (61) 98 05/30/19 08:00 99 05/30/19 07:01 100 T-Piece 5.0 28 05/30/19 07:01 79 22 100 T-Piece 5.0 28 80 24 100 05/30/19 07:00 84 22 135/38 (70) 100 05/30/19 06:00 82 24 130/38 (68) 98 05/30/19 05:00 80 22 133/36 (68) 99 05/30/19 04:00 5.0 28 05/30/19 04:00 98.7 81 23 124/43 (70) 99 05/30/19 04:00 T-piece 5.0 T-piece 5.0 T-piece 5.0 05/30/19 03:44 80 05/30/19 03:04 85 18 100 T-Piece 5.0 28 84 20 99 05/30/19 03:00 87 20 139/32 (67) 100 05/30/19 02:00 80 23 138/32 (67) 99 05/30/19 01:12 100 T-Piece 5.0 28 05/30/19 01:00 85 20 156/63 (94) 100 05/30/19 00:00 T-piece 5.0 T-piece 5.0 T-piece 5.0 05/30/19 00:00 5.0 28 05/30/19 00:00 98.7 81 24 129/42 (71) 99 05/29/19 23:41 80 05/29/19 23:07 76 18 100 T-Piece 5.0 28 80 24 100 05/29/19 23:00 81 23 141/38 (72) 100 05/29/19 22:00 82 22 134/46 (75) 100 05/29/19 21:00 84 20 137/58 (84) 99 05/29/19 21:00 83 134/46 05/29/19 20:35 78 05/29/19 20:00 T-piece 5.0 T-piece 5.0 T-piece 5.0 05/29/19 20:00 5.0 28 05/29/19 20:00 98.5 80 23 107/34 (58) 98 05/29/19 19:00 80 24 131/35 (67) 100 05/29/19 18:59 100 T-Piece 5.0 28 05/29/19 18:59 84 19 100 T-Piece 5.0 28 77 22 100 05/29/19 18:00 85 23 138/61 (86) 98 05/29/19 17:00 75 25 114/31 (58) 98 05/29/19 16:00 82 05/29/19 16:00 T-piece 5.0 T-piece 5.0 T-piece 5.0 05/29/19 16:00 5.0 28 05/29/19 16:00 98.6 82 24 111/31 (57) 97 05/29/19 15:00 92 28 161/60 (93) 100 05/29/19 14:44 88 23 100 T-Piece 5.0 28 81 24 99 05/29/19 14:00 81 23 147/60 (89) 100 I&O Intake and Output 05/29/19 05/30/19 19:00 07:00 Intake Total 1470 ml 1470 ml Output Total 400 ml 1100 ml Balance 1070 ml 370 ml Free Water 300 ml 300 ml Tube Feeding 720 ml 720 ml Other 450 ml 450 ml Output Urine Total 400 ml 850 ml Gastric Drainage Total 250 ml # Voids 1 # Bowel Movements 1 2 Dressing: dry Wound: clean Cardiovascular: RSR Respiratory: clear Abdomen: soft, non-tender, present bowel sounds Extremities: no cyanosis, other Laboratory Tests Test 05/30/19 04:46 White Blood Count 9.6 K/UL (4.8-10.8) Red Blood Count 3.10 M/UL (4.20-5.40) L Hemoglobin 8.8 G/DL (12.0-16.0) L Hematocrit 27.0 % (37.0-47.0) L Mean Corpuscular Volume 87 FL (80-99) Mean Corpuscular Hemoglobin 28.4 PG (27.0-31.0) Mean Corpuscular Hemoglobin Concent 32.6 G/DL (32.0-36.0) Red Cell Distribution Width 14.1 % (11.6-14.8) Platelet Count 332 K/UL (150-450) Mean Platelet Volume 4.9 FL (6.5-10.1) L Neutrophils (%) (Auto) 58.3 % (45.0-75.0) Lymphocytes (%) (Auto) 33.5 % (20.0-45.0) Monocytes (%) (Auto) 3.1 % (1.0-10.0) Eosinophils (%) (Auto) 4.3 % (0.0-3.0) H Basophils (%) (Auto) 0.7 % (0.0-2.0) Sodium Level 141 MMOL/L (136-145) Potassium Level 4.4 MMOL/L (3.5-5.1) Chloride Level 104 MMOL/L (98-107) Carbon Dioxide Level 30 MMOL/L (21-32) Anion Gap 7 mmol/L (5-15) Blood Urea Nitrogen 40 mg/dL (7-18) H Creatinine 0.8 MG/DL (0.55-1.30) Estimat Glomerular Filtration Rate > 60 mL/min (>60) Glucose Level 110 MG/DL (74-106) H Calcium Level 9.3 MG/DL (8.5-10.1) Magnesium Level 1.6 MG/DL (1.8-2.4) L Total Bilirubin 0.2 MG/DL (0.2-1.0) Aspartate Amino Transf (AST/SGOT) 23 U/L (15-37) Alanine Aminotransferase (ALT/SGPT) 38 U/L (12-78) Alkaline Phosphatase 146 U/L (46-116) H C-Reactive Protein, Quantitative 1.5 mg/dL (0.00-0.90) H Pro-B-Type Natriuretic Peptide 346 pg/mL (0-125) H Total Protein 8.1 G/DL (6.4-8.2) Albumin 2.7 G/DL (3.4-5.0) L Globulin 5.4 g/dL Albumin/Globulin Ratio 0.5 (1.0-2.7) L Plan Problems: (1) Sacral decubitus ulcer Assessment & Plan: This is a 83-year-old female with multiple medical committees that is currently admitted for medical care and management and identified to have multiple wounds requiring care. On admission patient noted to have a resolved sacral decubitus ulcer. Has had prior care and is well-healed at this time. Will ensure it does not open up again. Patient has a right ischial decubitus ulcer that is resolved. Scar intact and well formed. Will monitor to ensure it does not open up again. Patient has a left ischial decubitus ulcer that can be identified to be stage IV with palpable bone that has been resolving as noted by the periwound tissue and scar but open area approximately 1 cm x 1.5 cm few millimeters deep to bone identified. Unsure if this is been to be completely healed prior and has since opened or if has been healing at this level. No foul odor no drainage was unsure local wound care until healed Bilateral heels soft without signs of injury Resolving pressure injury L ischium(L)1.8cm x (W)1cm.Scattered biofilm at base of wound. Edges flat and adherent with surrounding hyperpigmentation. No odor or exudate noted. Sacrum is pale pink with surrounding hyperpigmentation. Hyperpigmentation R ischium with small sheared area centrally.No areas of erythema or exudate noted. Both heels are soft but blanchable. Skin Assessed under collar of trach and no evidence of skin breakdown noted. All wound Tx. are effective and continued as ordered. Pt ahs an APM/Belén mattress overlay and is being repositioned per protocols and per tolerance.No new skin concerns noted. Full thickness pressure injury L Ischium with small amt biofilm (L)1.8cm x (W) 1cm. Surrounding pink hyperpigmentation. No odor or exudate noted. [place] hyperpigmentation from previous wound noted to sacrum. Pt also noted to have Cat 2 Skin Tear dorsal L hand, L 5th metatarsal extending into palm of hand. 80% skin flap in situ.Both heels are dry firm and blanchable. No other skin concerns noted. R ischial wound has resolved. [place] epithelial with surrounding hyperpigmentation. from historical wound. Full thickness pressure injury L ischium. [place] granulation at base of wound. Borders are macerated with Surrounding hyperpigmentation.Small amt non-odorous serous exudate noted.(L)0.7cm x (W)0.8cm. Skin hyperpigmentation from historical wound noted to Sacrum. Small sheared area noted to sacrococcygeal area.(L)0.4cm x (W)0.3cm.Small amt sanguineous exudate noted. Reabsorbed blister with semi-detached dry necrotic cap noted to web space of L thumb and L index fingers extending into palm of L hand. No odor or exudate noted. Skin assessed under tracheal collar and no erythema or evidence of Skin Breakdown noted. NO new skin concerns noted . Good hand hygiene provided to both hands. R hand contracted and fisted. Fingernails trimmed. Wound care provided along with Primary nurse. Wound Tx continued as ordered. New order obtained from to apply Betadine to wound L hand Daily. Tx done as ordered. L hand wrapped with kerlix weaving kerlix between fingers to separate fingers. Moisture Barrier applied to sacrum ,R ischium. Each site covered with Optifoam drsg. Both lower ext washed and moisturized. Cavilon Skin Barrier applied to both heels.Each heel covered with Optifoam drsgs. Pt positioned with pillows and both heels off-loaded with pillow. Pt wounds are resolving. Loose necrotic cap within web space of L index finger and L thumb easily removed with gentle friction. Base of wound is hypergranular with 10% necrosis. Borders are macerated. Application of Silver Nitrate to hypergranular base done. Cavilon Skin Barrier applied to borders . Good hand hygiene provided. Wound covered with Abd pad. L hand wrapped with Kerlix weaving Kerlix between digitsof L hand. Pressure injury L ischium resolving. Base iof wound is pale pink and dry with surrounding hyperpigmentation and scar from previous wound. Hyperpigmentation with historical scars noted to Sacrum and R ischium. Both heels are soft and blanchable. Skin Assessed under trach collar and no evidence of skin breakdown noted. Pt having frequent loose B.Ms. MASD noted to lumbar -sacral area and buttocks. Erythema with moisture denudement and satellite lesions noted to lumbar-sacral, Sacrum,R and L buttocks,both ischium and extends into perineum. Sites of recently resolved pressure injuries R and L ischium noted to be denuded and excoriated. Unfortunately her current medical condition this is inevitable decline as we have done our best to ensure proper care with extensive attention paid to the patient at all times. Bilat groin area,including mons pubis and medial aspects of both upper thighs grossly red and denuded. L breast ,L upper abd, L axilla and medial upper arm grossly red and macerated.Mild odor noted. Wound Web space of L index and L thumb has resolved. Skin Assessed under collar of trach and no evidence of skin breakdown noted. Bilat foot drop noted . Both heels and malleoli both feet are blanchable. Tx.Plan: Apply Betadine to wound L hand. Cover with Gauze and wrap with Kerlix Daily and prn. Cleanse skin L breast ,L upper abd ,L axilla and L upper arm. Pat dry. Apply Light dusting of Antifungal powder to affected areas Twice Daily. Apply Remedy Antifungal Cream to lumbar sacral area, Buttocks ,Bilat Groin and Perineum Twice daily. May apply 1:1 application with Triad Paste. Apply Triad Paste to abd folds, Bilat groin and buttocks with each incontinence care. Apply Cavilon Skin Barrier to both heels and Malleoli both feet. Cover each areas with Optifoam drsg every 7 days and prn. Cleanse L ischial wound with Saline. Apply Therahoney. Apply Moisture Barrier periwound. Cover with Optifoam drsgevery 3 days and prn. Apply Moisture Barrier Paste to R ischium and Sacrum. Cover each area with Optifoam drsg. Change every 3 days and prn. Apply Cavilon Skin Barrier to both heels. Cover each heel with Optifoam drsg. Change every 7 days and prn. Cleanse Blister Dorsal and palm of L hand with saline. Versatel One Silicone Contact Layer(Applied). Apply Silvasorb Gel. Wrap with Kerlix Gauze.Change every 7 days and prn. Apply Moisture Barrier to sacrum. Cover with Optifoam drsg. Change every 3 days and prn. APM/BELÉN Mattress overlay. Reposition at least every 2hours or as tolerated. Off-load heels with pillow. Nutritional optimization We will monitor follow with recommendations cont with above upon d/c wounds healing overall improving left hand wound almost resolved. 80% healed (2) Sepsis Assessment & Plan: IV abx as per ID trend labs improving wounds unlikely etiology likely respiratory imaging noted and okay abnormal lft's stable PICC on Abx in ICU for desaturation CXR with consolidation cont with frequent suctioning d/c planning g j via GI acute leukocytosis decompensation hypotensive on pressors pending c diff abx changed per ID daughter wants close attention to wounds and management to ensure healing Evidence of left lower lobe pneumonia, also previously demonstrated Gastrostomy in good position Mild diastasis of the rectus abdominis musculature again demonstrated Retrosacral decubitus changes, better depicted on prior exam which included the pelvis Small hiatal hernia with evidence of trace gastroesophageal reflux Discussed with GI. Recommend GJ family still pending decision transfuse prbc prn monitor h/h monitor bm LFTs improving trending down Findings: Previously demonstrated gastrostomy tube has been converted to a gastrojejunostomy. Gastrostomy balloon is in good position. The shaft of the jejunostomy portion coils in the upper gastric fundus, and the tip is in the proximal jejunum just beyond the ligament of Treitz. The distal esophagus is unremarkable. Contrast is seen within the colon. The visualized bowel demonstrates no significant distention. There is diastasis of the rectus abdominis tendon again demonstrated. The appendix is visualized, normal. The liver, gallbladder, bile ducts, pancreas, spleen, adrenals, right kidney are unremarkable. The left kidney demonstrates a large interpolar region cyst. No retroperitoneal or mesenteric mass or adenopathy. The included lung bases demonstrate groundglass opacities, right greater than left, and areas of scarring or atelectasis on the left. Previously demonstrated left lower lobe dense consolidation has improved The bones demonstrate a very slight superior endplate compression fracture deformity of the L3 vertebral body, also evident previously. Previously reported retrosacral decubitus changes are not included in the current imaging volume Impression: Interim conversion of gastrostomy to gastrojejunostomy, jejunostomy tube tip at the origin of the jejunum, just beyond the ligament of Treitz No acute abdominal abnormality Mild bilateral basilar pulmonary parenchymal groundglass opacities, right greater than left, nonspecific, could indicate atelectasis, edema, or inflammation. May also be in part due to motion artifact. There are also atelectatic changes or scarring on the left L3 vertebral body mild superior endplate compression fracture deformity, also demonstrated on prior January 2019 exam and therefore not acute. Incidental findings as noted, including rectus abdominis tendon diastasis, large left renal cyst (3) Feeding by G-tube Assessment & Plan: DAILY ESTIMATED NEEDS: Needs based on Pulmonary, wounds, bedbound/ 61kg adj 25-30 kcals/kg 1021-0627 total kcals 1.25-2 g protein/kg 76-122 g total protein 25-30 mL/kg 7156-7180 total fluid mLs NUTRITION DIAGNOSIS: * Increased kcal/prot needs R/T wound healing as evidenced by BL buttocks and sacral wound photos, refer to eval. * Swallowing difficulty R/T respiratory status as evidenced by pt on T-collar, s/p G-J conversion CURRENT TF:Glucerna 1.5 @ 50ml/hr x 24 hrs ENTERAL NUTRITION RECOMMENDATIONS: Glucerna 1.5 @ 50ml/hr x 24 hrs to provide 1200ml, 1800 kcal, 99g pro, 911ml free H2O - Maintain at current rate as tolerated to meet 100% est needs - HOB over 30 degrees - INCREASE water flush of 170ml q 6 hrs ADDITIONAL RECOMMENDATIONS: 1) RE-calibrate bedscale wt: fluctuating daily wts (108#-136# last 6 days) 2) Wound healing: Add Cristian 1pkt BID w/ continued good TF tolerance. 3) Increase water flushes, monitor for signs of water deficits 4) Monitor BGs closely, need for NISS -> now w/ improved BGs 5) Monitor for continued good TF tolerance 6) Monitor K : elev K on 03/25, s/p Kdur BID, now dc'ed. (4) Chronic vegetative state Assessment & Plan: incontinence of urine and stool. can soil dressings. nurses doing great job with monitoring and changing prn (5) Leukocytosis Additional Comments dressings removed at bedside wounds evaluated with myself and daughter wound on left hand healed and now scar doing well overall daughter taking pictures of wound Walter Madera May 30, 2019 13:59
--- NOTE | 2019-05-30 14:32 | General Progress Note ---
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 - Anemia with OB (-) stools - Resp failure, s/p Trach - OBS, vegetative obtunded unresponsive state, bedbound with contracted extremities - h/o minor GJ tube site irritation - poor Prognosis Recommendations - No plans for immune suppression (risk benefit ratio in favor of holding off Rx ) - abx per ID - PPI daily - Cristian BID - antibiotic ointment to GJT site PRN - aspiration precautions - elevate HOB - Vital AF 1.2 - transfuse to keep Hg > 7 - J tube feeds - G tube ---> LIS Subjective Allergies: Coded Allergies: CODEINE (Verified Allergy, Unknown, HIVES, 09/15/09) Subjective above noted d/w RN tolerating TF (+) BM Objective Last 24 Hour Vital Signs Date Time Temp Pulse Resp B/P (MAP) Pulse Ox O2 Delivery O2 Flow Rate FiO2 05/30/19 13:16 98 T-Piece 5.0 28 05/30/19 13:00 88 21 160/96 (117) 99 05/30/19 12:00 T-piece 5.0 T-piece 5.0 T-piece 5.0 05/30/19 12:00 81 05/30/19 12:00 5.0 28 05/30/19 12:00 98.6 79 22 128/42 (70) 96 05/30/19 11:00 77 24 125/34 (64) 99 05/30/19 10:47 80 22 100 T-Piece 5.0 28 79 24 99 05/30/19 10:00 80 23 129/38 (68) 97 05/30/19 09:00 82 19 145/41 (75) 99 05/30/19 08:44 80 110/37 05/30/19 08:00 5.0 28 05/30/19 08:00 T-piece 5.0 T-piece 5.0 T-piece 5.0 05/30/19 08:00 98.9 80 23 110/37 (61) 98 05/30/19 08:00 99 05/30/19 07:01 100 T-Piece 5.0 28 05/30/19 07:01 79 22 100 T-Piece 5.0 28 80 24 100 05/30/19 07:00 84 22 135/38 (70) 100 05/30/19 06:00 82 24 130/38 (68) 98 05/30/19 05:00 80 22 133/36 (68) 99 05/30/19 04:00 5.0 28 05/30/19 04:00 98.7 81 23 124/43 (70) 99 05/30/19 04:00 T-piece 5.0 T-piece 5.0 T-piece 5.0 05/30/19 03:44 80 05/30/19 03:04 85 18 100 T-Piece 5.0 28 84 20 99 05/30/19 03:00 87 20 139/32 (67) 100 05/30/19 02:00 80 23 138/32 (67) 99 05/30/19 01:12 100 T-Piece 5.0 05/30/19 01:00 85 20 156/63 (94) 100 05/30/19 00:00 T-piece 5.0 T-piece 5.0 T-piece 5.0 05/30/19 00:00 5.0 28 05/30/19 00:00 98.7 81 24 129/42 (71) 99 05/29/19 23:41 80 05/29/19 23:07 76 18 100 T-Piece 5.0 28 80 24 100 05/29/19 23:00 81 23 141/38 (72) 100 05/29/19 22:00 82 22 134/46 (75) 100 05/29/19 21:00 84 20 137/58 (84) 99 05/29/19 21:00 83 134/46 05/29/19 20:35 78 05/29/19 20:00 T-piece 5.0 T-piece 5.0 T-piece 5.0 05/29/19 20:00 5.0 28 05/29/19 20:00 98.5 80 23 107/34 (58) 98 05/29/19 19:00 80 24 131/35 (67) 100 05/29/19 18:59 100 T-Piece 5.0 28 05/29/19 18:59 84 19 100 T-Piece 5.0 28 77 22 100 05/29/19 18:00 85 23 138/61 (86) 98 05/29/19 17:00 75 25 114/31 (58) 98 05/29/19 16:00 82 05/29/19 16:00 T-piece 5.0 T-piece 5.0 T-piece 5.0 05/29/19 16:00 5.0 28 05/29/19 16:00 98.6 82 24 111/31 (57) 97 05/29/19 15:00 92 28 161/60 (93) 100 05/29/19 14:44 88 23 100 T-Piece 5.0 28 81 24 99 Intake and Output 05/29/19 05/30/19 19:00 07:00 Intake Total 1470 ml 1470 ml Output Total 400 ml 1100 ml Balance 1070 ml 370 ml Free Water 300 ml 300 ml Tube Feeding 720 ml 720 ml Other 450 ml 450 ml Output Urine Total 400 ml 850 ml Gastric Drainage Total 250 ml # Voids 1 # Bowel Movements 1 2 Laboratory Tests 05/30/19 04:46: White Blood Count 9.6, Red Blood Count 3.10L, Hemoglobin 8.8L, Hematocrit 27.0L , Mean Corpuscular Volume 87, Mean Corpuscular Hemoglobin 28.4, Mean Corpuscular Hemoglobin Concent 32.6, Red Cell Distribution Width 14.1, Platelet Count 332, Mean Platelet Volume 4.9L, Neutrophils (%) (Auto) 58.3, Lymphocytes ( %) (Auto) 33.5, Monocytes (%) (Auto) 3.1, Eosinophils (%) (Auto) 4.3H, Basophils (%) (Auto) 0.7, Sodium Level 141, Potassium Level 4.4, Chloride Level 104, Carbon Dioxide Level 30, Anion Gap 7, Blood Urea Nitrogen 40H, Creatinine 0.8, Estimat Glomerular Filtration Rate > 60, Glucose Level 110H, Calcium Level 9.3, Magnesium Level 1.6L, Total Bilirubin 0.2, Aspartate Amino Transf (AST/SGOT ) 23, Alanine Aminotransferase (ALT/SGPT) 38, Alkaline Phosphatase 146H, C- Reactive Protein, Quantitative 1.5H, Pro-B-Type Natriuretic Peptide 346H, Total Protein 8.1, Albumin 2.7L, Globulin 5.4, Albumin/Globulin Ratio 0.5L Height (Feet): 5 Height (Inches): 3.00 Weight (Pounds): 123 Objective Debilitated AA woman non-verbal, obtunded NCAT (+) trach coarse BS RR obese abd, (+) GJT, (+) (L) trunk edema no edema (+) contractured extremities Celio Vaughan MD May 30, 2019 14:32
--- NOTE | 2019-05-30 16:00 | NUR ---
NURSE NOTES: Pt repositioned and orally suctioned. No acute distress noted. GT site dressing changed. Addendum: 05/30/19 at 1824 by Sandy Chi RN Oral care also provided.
--- NOTE | 2019-05-30 17:30 | NUR ---
NURSE NOTES: Received report from JEANNINE Delgado. Patient opens eyes spontaneously. Patient is obtunded. Patient with Shiley 6xlt T-piece on 5L O2 with FiO2 28%. Respirations even with bialteral upper rhonchi and bialteral lower lobes diminished. GTube dressing clean dry intact set to low intermittent suction. JT running Vital AF 1.2 at 60 cc/hr with no nausea or vomiting noted. Abd is round, non-tender, with active bowel sounds to all quadrants. Purewick noted draining yellow urine. left hand wound healing and open to air. Pt has a right elbow 24g IV saline locked. Bed in lowest position, alarm on, side rails up x 2 and padded per seizure precaution, call light within reach, will continue to monitor. Addendum: 05/31/19 at 0114 by Veda Marquez RN Above note for 1929.
--- NOTE | 2019-05-30 18:00 | NUR ---
NURSE NOTES: Pt repositioned, orally sutctioned, no acute distress noted. Pt is asleep at this time. Will continue to monitor.
--- NOTE | 2019-05-30 19:47 | NUR ---
HAND-OFF: Report given to Ranjit and JEANNINE Mccollum. Endorsed to Nayana that Chika requested to be notified before her mother is discharged anywhere and that she would like to provide her prior written consent also. Chika also at bedside at this time and care plan discussed mutually.
--- NOTE | 2019-05-30 22:00 | NUR ---
NURSE NOTES: Patient asleep, arousable, opens eyes to name and light shaking. Patient repositioned and suctioned. Respirations even with Shiley 6xlt Tpiece on cool aerosol FiO2 28% and O2 5L. VSS and afebrile. Patient tolerating Vital AF at 60mL/Hr. bed locked lowest position call light within reach. will continue to monitor.
[2019-05-31] VITALS (24 sets, daily range): BP systolic 93–160; BP diastolic 23–105
--- NOTE | 2019-05-31 | NUR ---
NURSE NOTES: Patient asleep arousable to light shaking. VSS and afebrile. patient repositioned and oral care provided. No residual obtained from GTube. Abdomen round nontender with active bowel sounds x4 quadrants. Patient tolerating Jtube Vital AF 1.2 at 60mL/Hr. will continue to monitor.
--- NOTE | 2019-05-31 01:45 | Progress Note ---
DATE: 05/30/2019 CARDIOLOGY PROGRESS NOTE SUBJECTIVE: Discharge planning continues. Subacute facility being pursued. The patient without new issues. She remains on ventilator support. Monitored rhythm, sinus. OBJECTIVE: VITAL SIGNS: Blood pressure 135/38, heart rate 84, and respiratory rate 22. LUNGS: Diminished breath sounds. CARDIAC: Regular rhythm and rate. Normal S1 and S2. NECK: Thin secretions from T-tube collar. ABDOMEN: Soft. GJ tube intact. EXTREMITIES: There is trace edema. IMPRESSION: Stable cardiopulmonary parameters on current regimen. PLAN: 1. Followup lab studies done today reviewed. 2. Magnesium supplementation ordered. 3. Free water replacement to continue. 4. Medications updated. Bg Hagen M.D. DR: PIYUSH JOB#: [id number] CC:
--- NOTE | 2019-05-31 02:00 | NUR ---
NURSE NOTES: Patient asleep. VSS and afebrile. Patient repositioned and suctioned. oral care provided. will continue to monitor.
[2019-05-31] MEDS: Albuterol/Ipratropium 3ml neb HHN SCH ×6 (03:13→23:06)
--- NOTE | 2019-05-31 04:00 | NUR ---
NURSE NOTES: Patient asleep and arousable with light shaking. VSS and afebrile. Patient provided bed bath, repositioned, and oral care provided. Gtube dressing changed. Abdomen round nontender with 10mL residual obtained from Gtube set to low intermittent suction. Will continue to monitor.
--- NOTE | 2019-05-31 06:00 | NUR ---
NURSE NOTES: Patient asleep. VSS and afebrile. patient repositioned and suctioned. oral care provided. will continue to monitor.
--- NOTE | 2019-05-31 07:03 | NUR ---
HAND-OFF: Report given to JEANNINE Delgado.
--- NOTE | 2019-05-31 07:04 | NUR ---
NURSE NOTES: Pt received from Ranjit and JEANNINE Mccollum without cardiopulmonary distress noted. Pt is awake in bed, obtunded, opens spontaneously, pupils are equal and round 4mm and sluggish to light reaction. Pt is SR to [employer]. radial pulses palpable 2+ bilaterally and dorsalis pedis pulses 2+ bilaterally. cap refill< 3 sec. Pt noted with T-piece on 5L O2 with FiO2 28%. Lung sounds noted diminished to bilat lower lung lobes. Bilat upper lung lobes noted with rhonchi, pt currently receiving breathing tx per RT. GT noted with dry and intact dressing hooked to low intermittent suction with yellow, cloudy gastric secretions. JT running Vital AF 1.2 at 60 cc/hr. no nausea or vomiting noted. Abd is round, non-tender, with active bowel sounds to all quadrants. Purewick noted draining yellow urine. Skin alterations noted. Pt has a right elbow 24g IV running NS TKO at 5 cc/hr. Bed in lowest position, alarm on, side rails up x 2 and padded per seizure precaution, call light within reach, will continue to monitor.
--- NOTE | 2019-05-31 07:21 | General Progress Note ---
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 - Anemia with OB (-) stools - Resp failure, s/p Trach - OBS, vegetative obtunded unresponsive state, bedbound with contracted extremities - h/o minor GJ tube site irritation - poor Prognosis Recommendations - No plans for immune suppression (risk benefit ratio in favor of holding off Rx ) - PPI daily - Cristian BID - antibiotic ointment to GJT site PRN - aspiration precautions - elevate HOB - Vital AF 1.2 - J tube feeds and G tube ---> LIS Subjective Allergies: Coded Allergies: CODEINE (Verified Allergy, Unknown, HIVES, 09/15/09) Subjective above noted d/w RN tolerating TF Objective Last 24 Hour Vital Signs Date Time Temp Pulse Resp B/P (MAP) Pulse Ox O2 Delivery O2 Flow Rate FiO2 05/31/19 07:00 79 21 133/46 (75) 98 79 05/31/19 06:00 78 22 131/29 (63) 99 78 05/31/19 05:00 78 19 160/44 (82) 99 78 05/31/19 04:00 74 05/31/19 04:00 98.6 74 19 121/42 (68) 100 74 05/31/19 04:00 T-piece 5.0 T-piece 5.0 T-piece 5.0 05/31/19 04:00 5.0 28 05/31/19 03:13 77 23 100 T-Piece 5.0 28 76 24 100 05/31/19 03:00 84 20 132/63 (86) 100 84 05/31/19 02:00 77 21 106/33 (57) 100 77 05/31/19 01:00 76 22 102/37 (58) 97 76 05/31/19 00:55 100 T-Piece 5.0 28 05/31/19 00:00 T-piece 5.0 T-piece 5.0 T-piece 5.0 05/31/19 00:00 98.8 76 22 139/41 (73) 99 76 05/30/19 23:11 78 23 100 T-Piece 5.0 28 74 21 100 05/30/19 23:00 75 20 118/42 (67) 99 75 05/30/19 22:00 76 21 120/34 (62) 100 76 05/30/19 21:00 74 21 119/33 (61) 100 74 05/30/19 20:45 77 118/41 05/30/19 20:00 98.3 76 21 118/41 (66) 99 76 05/30/19 20:00 T-piece 5.0 T-piece 5.0 T-piece 5.0 05/30/19 20:00 76 05/30/19 20:00 5.0 28 05/30/19 19:15 99 T-Piece 5.0 28 05/30/19 19:15 81 24 100 T-Piece 5.0 28 83 25 99 05/30/19 19:00 74 21 99/45 (63) 99 05/30/19 18:00 73 22 124/40 (68) 100 05/30/19 17:00 79 19 146/82 (103) 99 05/30/19 16:00 T-piece 5.0 T-piece 5.0 T-piece 5.0 05/30/19 16:00 5.0 05/30/19 16:00 98.2 76 21 124/34 (64) 99 05/30/19 16:00 72 05/30/19 15:19 76 20 100 T-Piece 5.0 28 73 22 98 05/30/19 15:00 76 21 127/41 (69) 99 05/30/19 14:00 73 21 126/43 (70) 99 05/30/19 13:16 98 T-Piece 5.0 28 05/30/19 13:00 88 21 160/96 (117) 99 05/30/19 12:00 T-piece 5.0 T-piece 5.0 T-piece 5.0 05/30/19 12:00 81 05/30/19 12:00 5.0 28 05/30/19 12:00 98.6 79 22 128/42 (70) 96 05/30/19 11:00 77 24 125/34 (64) 99 05/30/19 10:47 80 22 100 T-Piece 5.0 28 79 24 99 05/30/19 10:00 80 23 129/38 (68) 97 05/30/19 09:00 82 19 145/41 (75) 99 05/30/19 08:44 80 110/37 05/30/19 08:00 5.0 28 05/30/19 08:00 T-piece 5.0 T-piece 5.0 T-piece 5.0 05/30/19 08:00 98.9 80 23 110/37 (61) 98 05/30/19 08:00 99 Intake and Output 05/30/19 05/31/19 19:00 07:00 Intake Total 1870 ml 1470 ml Output Total 600 ml 700 ml Balance 1270 ml 770 ml Free Water 300 ml 300 ml IV Total 400 ml Tube Feeding 720 ml 720 ml Other 450 ml 450 ml Output Urine Total 500 ml 600 ml Gastric Drainage Total 100 ml Other 100 ml # Voids 2 # Bowel Movements 3 1 Height (Feet): 5 Height (Inches): 3.00 Weight (Pounds): 126 Objective Debilitated AA woman non-verbal, obtunded NCAT (+) trach coarse BS RR obese abd, (+) GJT no edema (+) contractured extremities Celio Vaughan MD May 31, 2019 07:21
--- NOTE | 2019-05-31 08:00 | NUR ---
NURSE NOTES: Dr Beltrán at bedside assessing pt, care plan discussed. Pt also provided with oral care and suctioned. Pt repositioned at this time. No acute distress noted.
--- NOTE | 2019-05-31 08:54 | Pulmonology Progress Note ---
Assessment/Plan Assessment/Plan Impression: Fungemia KP+ history of Pneumonia/ respiratory congestion Trach, G tube, Hypertension, Cardiac disease, Dementia, Previous CVA, Seizure disorder, Respiratory failure with hypoxia Anemia, Sacral ulcer renal cyst chronic pulmonary congestion Plan antifungals antimicrobials per ID ID following and care noted overall pulmonary status slightly improved monitor imaging for change and monitor secretions Vent PRN but DNR as per family monitor labs for change and recommend further elevate head and monitor secretions monitor labs for change monitor vitals; and adjust meds; cards following; DNR. No CPR. ICU care reviewed meds noted and updated; neb therapy off load as able prognosis very poor nutrition/fees/ dietary as is; monitor residuals skin care management reviewed difficulty with placement all changes noted and discussed chronic management as able medications/laboratory data/nursing notes/ICU care reviewed in detail note reviewed and edited care discussed with RN and RT time spent x 38minutes Subjective ROS Limited/Unobtainable: Yes Allergies: Coded Allergies: CODEINE (Verified Allergy, Unknown, HIVES, 09/15/09) Subjective overnight events noted; remains poorly responsive still with congestion- needs suctioning on isolation; remains off vent for now Fungemia; noted KPC; being treated off vent ICU care issues discussed Objective Last 24 Hour Vital Signs Date Time Temp Pulse Resp B/P (MAP) Pulse Ox O2 Delivery O2 Flow Rate FiO2 05/31/19 08:00 98.8 78 22 105/23 (50) 97 05/31/19 08:00 5.0 28 05/31/19 08:00 79 05/31/19 08:00 T-piece 5.0 T-piece 5.0 T-piece 5.0 05/31/19 07:25 100 T-Piece 5.0 28 05/31/19 07:25 86 18 100 T-Piece 5.0 28 79 18 100 05/31/19 07:00 79 21 133/46 (75) 98 79 05/31/19 06:00 78 22 131/29 (63) 99 78 05/31/19 05:00 78 19 160/44 (82) 99 78 05/31/19 04:00 74 05/31/19 04:00 98.6 74 19 121/42 (68) 100 74 05/31/19 04:00 T-piece 5.0 T-piece 5.0 T-piece 5.0 05/31/19 04:00 5.0 28 05/31/19 03:13 77 23 100 T-Piece 5.0 28 76 24 100 05/31/19 03:00 84 20 132/63 (86) 100 84 05/31/19 02:00 77 21 106/33 (57) 100 77 05/31/19 01:00 76 22 102/37 (58) 97 76 05/31/19 00:55 100 T-Piece 5.0 28 05/31/19 00:00 T-piece 5.0 T-piece 5.0 T-piece 5.0 05/31/19 00:00 98.8 76 22 139/41 (73) 99 76 05/30/19 23:11 78 23 100 T-Piece 5.0 28 74 21 100 05/30/19 23:00 75 20 118/42 (67) 99 75 05/30/19 22:00 76 21 120/34 (62) 100 76 05/30/19 21:00 74 21 119/33 (61) 100 74 05/30/19 20:45 77 118/41 05/30/19 20:00 98.3 76 21 118/41 (66) 99 76 05/30/19 20:00 T-piece 5.0 T-piece 5.0 T-piece 5.0 05/30/19 20:00 76 05/30/19 20:00 5.0 28 05/30/19 19:15 99 T-Piece 5.0 28 05/30/19 19:15 81 24 100 T-Piece 5.0 28 83 25 99 05/30/19 19:00 74 21 99/45 (63) 99 05/30/19 18:00 73 22 124/40 (68) 100 05/30/19 17:00 79 19 146/82 (103) 99 05/30/19 16:00 T-piece 5.0 T-piece 5.0 T-piece 5.0 05/30/19 16:00 5.0 28 05/30/19 16:00 98.2 76 21 124/34 (64) 99 05/30/19 16:00 72 05/30/19 15:19 76 20 100 T-Piece 5.0 28 73 22 98 05/30/19 15:00 76 21 127/41 (69) 99 05/30/19 14:00 73 21 126/43 (70) 99 05/30/19 13:16 98 T-Piece 5.0 28 05/30/19 13:00 88 21 160/96 (117) 99 05/30/19 12:00 T-piece 5.0 T-piece 5.0 T-piece 5.0 05/30/19 12:00 81 05/30/19 12:00 5.0 28 05/30/19 12:00 98.6 79 22 128/42 (70) 96 05/30/19 11:00 77 24 125/34 (64) 99 05/30/19 10:47 80 22 100 T-Piece 5.0 28 79 24 99 05/30/19 10:00 80 23 129/38 (68) 97 05/30/19 09:00 82 19 145/41 (75) 99 Intake and Output 05/30/19 05/31/19 19:00 07:00 Intake Total 1870 ml 1470 ml Output Total 600 ml 700 ml Balance 1270 ml 770 ml Free Water 300 ml 300 ml IV Total 400 ml Tube Feeding 720 ml 720 ml Other 450 ml 450 ml Output Urine Total 500 ml 600 ml Gastric Drainage Total 100 ml Other 100 ml # Voids 2 # Bowel Movements 3 1 Objective WDWN NAD on oxygen off vent reduced breath sounds bilaterally with some rhonchi but no wheezes [id number] without MRG NABS nontender no HSM no CC some edema contractures noted nonfocal nonverbal trach and gt reviewed and edited Current Medications Medications (Trade) Dose Ordered Sig/Maicol Route PRN Reason Start Time Stop Time Status Last Admin Dose Admin Acetaminophen (Tylenol) 650 mg Q4H PRN RECTAL T>100.5 / Mild Pain 05/07/19 09:45 06/06/19 09:44 05/07/19 10:13 Albuterol/ Ipratropium (Albuterol/ Ipratropium) 3 ml Q4HRT HHN 05/27/19 03:00 06/01/19 02:59 05/31/19 07:15 Atropine Sulfate (Atropine Opth Adriana) 1 drop Q6HR SL 05/11/19 00:00 06/10/19 08:59 05/31/19 05:34 Carvedilol (Coreg) 6.25 mg EVERY 12 HOURS GT 05/23/19 21:00 06/22/19:59 05/30/19 20:45 Heparin Sodium (Porcine) (Heparin 5000 units/ml) 5,000 units EVERY 12 HOURS SUBQ 05/01/19 21:00 05/31/19 20:59 05/30/19 20:46 Hydralazine HCl (Apresoline) 10 mg Q4H PRN IV For High Blood Pressure 05/11/19 05:45 06/10/19 05:44 05/12/19 00:08 Magnesium Oxide (Mag-Ox 400mg) 400 mg THREE TIMES A DAY GT 05/31/19 09:00 06/23/19 12:59 Pantoprazole (Protonix) 40 mg DAILY IVP 05/15/19 18:15 06/14/19 18:14 05/30/19 08:43 Amaury Chan MD May 31, 2019 08:54
[2019-05-31] MEDS: Magnesium Oxide 400mg tab GT SCH ×3 (09:10→17:57)
[2019-05-31] MEDS: Carvedilol 6.25mg Tab GT SCH ×2 (09:10→21:14)
[2019-05-31] MEDS: Pantoprazole Inj IVP SCH (09:10)
[2019-05-31] MEDS: Heparin 5000 units/ml inj SUBQ SCH ×2 (09:12→21:21)
--- NOTE | 2019-05-31 09:56 | NUR ---
NURSE NOTES: Dr Cortez at bedside assessing pt. Pt also orally suctioned and repositioned. No acute distress noted.
--- NOTE | 2019-05-31 10:36 | Nephrology Progress Note ---
Assessment/Plan Problem List: (1) Acute renal failure (ARF) Assessment: Cr stable (2) Chronic respiratory failure (3) Anemia (4) Sepsis Assessment Acute renal failure Respiratory failure - Trach Low Mag- Low k , Low Na Anemia UTI / Sepsis Proteinuria / HypoAlbuminemia high Trigs Sz decubs bed bound DNR Plan on Coreg now discussed with Dr Beltrán Transfused 05/09 has JT bolus Albumin as needed K and Mag and Phos supplement as needed Hydrate as needed Urine studies avoid Nephrotoxics mag K Phos supplements as needed monitor renal parameters Subjective ROS Limited/Unobtainable: Yes Objective Objective Last 24 Hour Vital Signs Date Time Temp Pulse Resp B/P (MAP) Pulse Ox O2 Delivery O2 Flow Rate FiO2 05/31/19 10:00 81 22 141/39 (73) 97 05/31/19 09:10 78 122/32 05/31/19 09:00 79 22 122/32 (62) 100 05/31/19 08:00 98.8 78 22 105/23 (50) 97 05/31/19 08:00 5.0 28 05/31/19 08:00 79 05/31/19 08:00 T-piece 5.0 T-piece 5.0 T-piece 5.0 05/31/19 07:25 100 T-Piece 5.0 28 05/31/19 07:25 86 18 100 T-Piece 5.0 28 79 18 100 05/31/19 07:00 79 21 133/46 (75) 98 79 05/31/19 06:00 78 22 131/29 (63) 99 78 05/31/19 05:00 78 19 160/44 (82) 99 78 05/31/19 04:00 74 05/31/19 04:00 98.6 74 19 121/42 (68) 100 74 05/31/19 04:00 T-piece 5.0 T-piece 5.0 T-piece 5.0 05/31/19 04:00 5.0 28 05/31/19 03:13 77 23 100 T-Piece 5.0 28 76 24 100 05/31/19 03:00 84 20 132/63 (86) 100 84 05/31/19 02:00 77 21 106/33 (57) 100 77 05/31/19 01:00 76 22 102/37 (58) 97 76 05/31/19 00:55 100 T-Piece 5.0 28 05/31/19 00:00 T-piece 5.0 T-piece 5.0 T-piece 5.0 05/31/19 00:00 98.8 76 22 139/41 (73) 99 76 05/30/19 23:11 78 23 100 T-Piece 5.0 28 74 21 100 05/30/19 23:00 75 20 118/42 (67) 99 75 05/30/19 22:00 76 21 120/34 (62) 100 76 05/30/19 21:00 74 21 119/33 (61) 100 74 05/30/19 20:45 77 118/41 05/30/19 20:00 98.3 76 21 118/41 (66) 99 76 05/30/19 20:00 T-piece 5.0 T-piece 5.0 T-piece 5.0 05/30/19 20:00 76 05/30/19 20:00 5.0 28 05/30/19 19:15 99 T-Piece 5.0 28 05/30/19 19:15 81 24 100 T-Piece 5.0 28 83 25 99 05/30/19 19:00 74 21 99/45 (63) 99 05/30/19 18:00 73 22 124/40 (68) 100 05/30/19 17:00 79 19 146/82 (103) 99 05/30/19 16:00 T-piece 5.0 T-piece 5.0 T-piece 5.0 05/30/19 16:00 5.0 28 05/30/19 16:00 98.2 76 21 124/34 (64) 99 05/30/19 16:00 72 05/30/19 15:19 76 20 100 T-Piece 5.0 28 73 22 98 05/30/19 15:00 76 21 127/41 (69) 99 05/30/19 14:00 73 21 126/43 (70) 99 05/30/19 13:16 98 T-Piece 5.0 28 05/30/19 13:00 88 21 160/96 (117) 99 05/30/19 12:00 T-piece 5.0 T-piece 5.0 T-piece 5.0 05/30/19 12:00 81 05/30/19 12:00 5.0 28 05/30/19 12:00 98.6 79 22 128/42 (70) 96 05/30/19 11:00 77 24 125/34 (64) 99 05/30/19 10:47 80 22 100 T-Piece 5.0 28 79 24 99 Intake and Output 05/30/19 05/31/19 19:00 07:00 Intake Total 1870 ml 1470 ml Output Total 600 ml 700 ml Balance 1270 ml 770 ml Free Water 300 ml 300 ml IV Total 400 ml Tube Feeding 720 ml 720 ml Other 450 ml 450 ml Output Urine Total 500 ml 600 ml Gastric Drainage Total 100 ml Other 100 ml # Voids 2 # Bowel Movements 3 1 Height (Feet): 5 Height (Inches): 3.00 Weight (Pounds): 126 General Appearance: no apparent distress EENT: other - vented Cardiovascular: normal rate Respiratory/Chest: decreased breath sounds Abdomen: soft Objective no change Eric Cortez MD May 31, 2019 10:36
--- NOTE | 2019-05-31 11:01 | Infectious Diseases Prog Note ---
"Assessment/Plan Assessment/Plan antibiotics :none A 1. delano parapsilosis fungemia s/p rx 2. klebsiella sepsis s/p rx 3. respiratory failure 4. hypertension 5. CVA 6. dementia 7. rectal VRE colonization 8. leucocytosis resolved 9. pseudomonas | providencia pneumonia s/p rx P 1. continue off antibiotics Subjective ROS Limited/Unobtainable: Yes Allergies: Coded Allergies: CODEINE (Verified Allergy, Unknown, HIVES, 09/15/09) Objective Vital Signs Last 24 Hour Vital Signs Date Time Temp Pulse Resp B/P (MAP) Pulse Ox O2 Delivery O2 Flow Rate FiO2 05/31/19 10:00 81 22 141/39 (73) 97 05/31/19 09:10 78 122/32 05/31/19 09:00 79 22 122/32 (62) 100 05/31/19 08:00 98.8 78 22 105/23 (50) 97 05/31/19 08:00 5.0 28 05/31/19 08:00 79 05/31/19 08:00 T-piece 5.0 T-piece 5.0 T-piece 5.0 05/31/19 07:25 100 T-Piece 5.0 28 05/31/19 07:25 86 18 100 T-Piece 5.0 28 79 18 100 05/31/19 07:00 79 21 133/46 (75) 98 79 05/31/19 06:00 78 22 131/29 (63) 99 78 05/31/19 05:00 78 19 160/44 (82) 99 78 05/31/19 04:00 74 05/31/19 04:00 98.6 74 19 121/42 (68) 100 74 05/31/19 04:00 T-piece 5.0 T-piece 5.0 T-piece 5.0 05/31/19 04:00 5.0 28 05/31/19 03:13 77 23 100 T-Piece 5.0 28 76 24 100 05/31/19 03:00 84 20 132/63 (86) 100 84 05/31/19 02:00 77 21 106/33 (57) 100 77 05/31/19 01:00 76 22 102/37 (58) 97 76 05/31/19 00:55 100 T-Piece 5.0 28 3/1/20 00:00 T-piece 5.0 T-piece 5.0 T-piece 5.0 05/31/19 00:00 98.8 76 22 139/41 (73) 99 76 05/30/19 23:11 78 23 100 T-Piece 5.0 28 74 21 100 05/30/19 23:00 75 20 118/42 (67) 99 75 05/30/19 22:00 76 21 120/34 (62) 100 76 05/30/19 21:00 74 21 119/33 (61) 100 74 05/30/19 20:45 77 118/41 05/30/19 20:00 98.3 76 21 118/41 (66) 99 76 05/30/19 20:00 T-piece 5.0 T-piece 5.0 T-piece 5.0 05/30/19 20:00 76 05/30/19 20:00 5.0 28 05/30/19 19:15 99 T-Piece 5.0 28 05/30/19 19:15 81 24 100 T-Piece 5.0 28 83 25 99 05/30/19 19:00 74 21 99/45 (63) 99 05/30/19 18:00 73 22 124/40 (68) 100 05/30/19 17:00 79 19 146/82 (103) 99 05/30/19 16:00 T-piece 5.0 T-piece 5.0 T-piece 5.0 05/30/19 16:00 5.0 28 05/30/19 16:00 98.2 76 21 124/34 (64) 99 05/30/19 16:00 72 05/30/19 15:19 76 20 100 T-Piece 5.0 28 73 22 98 05/30/19 15:00 76 21 127/41 (69) 99 05/30/19 14:00 73 21 126/43 (70) 99 05/30/19 13:16 98 T-Piece 5.0 28 05/30/19 13:00 88 21 160/96 (117) 99 05/30/19 12:00 T-piece 5.0 T-piece 5.0 T-piece 5.0 05/30/19 12:00 81 05/30/19 12:00 5.0 28 05/30/19 12:00 98.6 79 22 128/42 (70) 96 Height (Feet): 5 Height (Inches): 3.00 Weight (Pounds): 126 HEENT: status post trach Respiratory/Chest: lungs clear Cardiovascular: normal rate, regular rhythm, no gallop/murmur Abdomen: soft, non tender, other - GT Extremities: no edema Current Medications Medications (Trade) Dose Ordered Sig/Maicol Route PRN Reason Start Time Stop Time Status Last Admin Dose Admin Acetaminophen (Tylenol) 650 mg Q4H PRN RECTAL T>100.5 / Mild Pain 05/07/19 09:45 06/06/19 09:44 05/07/19 10:13 Albuterol/ Ipratropium (Albuterol/ Ipratropium) 3 ml Q4HRT HHN 05/27/19 03:00 06/01/19 02:59 05/31/19 07:15 Atropine Sulfate (Atropine Opth Adriana) 1 drop Q6HR SL 05/11/19 00:00 06/10/19 08:59 05/31/19 05:34 Carvedilol (Coreg) 6.25 mg EVERY 12 HOURS GT 05/23/19 21:00 06/22/19 20:59 05/31/19 09:10 Heparin Sodium (Porcine) (Heparin 5000 units/ml) 5,000 units EVERY 12 HOURS SUBQ 05/01/19 21:00 05/31/19 20:59 05/31/19 09:12 Hydralazine HCl (Apresoline) 10 mg Q4H PRN IV For High Blood Pressure 05/11/19 05:45 06/10/19 05:44 05/12/19 00:08 Magnesium Oxide (Mag-Ox 400mg) 400 mg THREE TIMES A DAY GT 05/31/19 09:00 06/23/19 12:59 05/31/19 09:10 Pantoprazole (Protonix) 40 mg DAILY IVP 05/15/19 18:15 06/14/19 18:14 05/31/19 09:10 Geovany Yang MD May 31, 2019 11:01"
--- NOTE | 2019-05-31 12:00 | NUR ---
NURSE NOTES: Pt repositioned and oral care provided, pt suctioned endotracheally. No acute distress noted at this time. Pt is afebrile 98.7 F ax. Now asleep.
--- NOTE | 2019-05-31 12:02 | General Progress Note ---
Assessment/Plan Problem List: (1) Seizure ICD Codes: R56.9 - Unspecified convulsions SNOMED: 57446208 (2) Anemia ICD Codes: D64.9 - Anemia, unspecified SNOMED: 023617022 Qualifiers: Qualified Codes: D64.9 - Anemia, unspecified (3) Sepsis ICD Codes: A41.9 - Sepsis, unspecified organism SNOMED: 37574759, 151739971 Qualifiers: Qualified Codes: A41.9 - Sepsis, unspecified organism (4) Respiratory failure with hypoxia ICD Codes: J96.91 - Respiratory failure, unspecified with hypoxia SNOMED: 07307093085522350 Qualifiers: Qualified Codes: J96.21 - Acute and chronic respiratory failure with hypoxia (5) HCAP (healthcare-associated pneumonia) ICD Codes: J18.9 - Pneumonia, unspecified organism SNOMED: 106921312, 294654360 (6) Sacral decubitus ulcer ICD Codes: L89.159 - Pressure ulcer of sacral region, unspecified stage SNOMED: 220448167 (7) HTN (hypertension) ICD Codes: I10 - Essential (primary) hypertension SNOMED: 66426590 (8) Chronic vegetative state ICD Codes: R40.3 - Persistent vegetative state SNOMED: 21196885 (9) Chronic respiratory failure ICD Codes: J96.10 - Chronic respiratory failure, unspecified whether with hypoxia or hypercapnia SNOMED: 07857573 (10) Limited mobility ICD Codes: Z74.09 - Other reduced mobility SNOMED: 2431107 Status: stable, progressing Assessment/Plan: monitor off abx monitor for bleeding vent as needed resp rx suctioning monitor lytes j tube feeds g port to gravity skin care sz rx bowel regime monitor lfts stable for dc to lower level. olvin dtmichael who visited [place] but according to her there was no one available to give her a tour. [facility] she agrees to [place] if bed available there Subjective ROS Limited/Unobtainable: Yes Constitutional: Reports: malaise, weakness HEENT: Reports: no symptoms Cardiovascular: Reports: no symptoms Respiratory: Reports: cough, shortness of breath, sputum Gastrointestinal/Abdominal: Reports: difficulty swallowing Genitourinary: Reports: no symptoms Neurologic/Psychiatric: Reports: pre-existing deficit Endocrine: Reports: no symptoms Hematologic/Lymphatic: Reports: anemia Allergies: Coded Allergies: CODEINE (Verified Allergy, Unknown, HIVES, 09/15/09) All Systems: reviewed and negative except above Subjective no events. stable on the vent. no fevers or chills. nol congestion. no szs, tolerating feeds. d/w dtr x 30 mins. prefers [facility] [place] Objective Last 24 Hour Vital Signs Date Time Temp Pulse Resp B/P (MAP) Pulse Ox O2 Delivery O2 Flow Rate FiO2 05/31/19 11:00 78 22 119/28 (58) 97 05/31/19 10:00 81 22 141/39 (73) 97 05/31/19 09:10 78 122/32 05/31/19 09:00 79 22 122/32 (62) 100 05/31/19 08:00 98.8 78 22 105/23 (50) 97 05/31/19 08:00 5.0 28 05/31/19 08:00 79 05/31/19 08:00 T-piece 5.0 T-piece 5.0 T-piece 5.0 05/31/19 07:25 100 T-Piece 5.0 28 05/31/19 07:25 86 18 100 T-Piece 5.0 28 79 18 100 05/31/19 07:00 79 21 133/46 (75) 98 79 05/31/19 06:00 78 22 131/29 (63) 99 78 05/31/19 05:00 78 19 160/44 (82) 99 78 05/31/19 04:00 74 05/31/19 04:00 98.6 74 19 121/42 (68) 100 74 05/31/19 04:00 T-piece 5.0 T-piece 5.0 T-piece 5.0 05/31/19 04:00 5.0 28 05/31/19 03:13 77 23 100 T-Piece 5.0 28 76 24 100 05/31/19 03:00 84 20 132/63 (86) 100 84 05/31/19 02:00 77 21 106/33 (57) 100 77 05/31/19 01:00 76 22 102/37 (58) 97 76 05/31/19 00:55 100 T-Piece 5.0 28 05/31/19 00:00 T-piece 5.0 T-piece 5.0 T-piece 5.0 05/31/19 00:00 98.8 76 22 139/41 (73) 99 76 05/30/19 23:11 78 23 100 T-Piece 5.0 28 74 21 100 05/30/19 23:00 75 20 118/42 (67) 99 75 05/30/19 22:00 76 21 120/34 (62) 100 76 05/30/19 21:00 74 21 119/33 (61) 100 74 05/30/19 20:45 77 118/41 05/30/19 20:00 98.3 76 21 118/41 (66) 99 76 05/30/19 20:00 T-piece 5.0 T-piece 5.0 T-piece 5.0 05/30/19 20:00 76 05/30/19 20:00 5.0 28 05/30/19 19:15 99 T-Piece 5.0 28 05/30/19 19:15 81 24 100 T-Piece 5.0 28 83 25 99 05/30/19 19:00 74 21 99/45 (63) 99 05/30/19 18:00 73 22 124/40 (68) 100 05/30/19 17:00 79 19 146/82 (103) 99 05/30/19 16:00 T-piece 5.0 T-piece 5.0 T-piece 5.0 05/30/19 16:00 5.0 28 05/30/19 16:00 98.2 76 21 124/34 (64) 99 05/30/19 16:00 72 05/30/19 15:19 76 20 100 T-Piece 5.0 28 73 22 98 05/30/19 15:00 76 21 127/41 (69) 99 05/30/19 14:00 73 21 126/43 (70) 99 05/30/19 13:16 98 T-Piece 5.0 28 05/30/19 13:00 88 21 160/96 (117) 99 05/30/19 12:00 T-piece 5.0 T-piece 5.0 T-piece 5.0 05/30/19 12:00 81 05/30/19 12:00 5.0 28 05/30/19 12:00 98.6 79 22 128/42 (70) 96 Intake and Output 05/30/19 05/31/19 19:00 07:00 Intake Total 1870 ml 1470 ml Output Total 600 ml 700 ml Balance 1270 ml 770 ml Free Water 300 ml 300 ml IV Total 400 ml Tube Feeding 720 ml 720 ml Other 450 ml 450 ml Output Urine Total 500 ml 600 ml Gastric Drainage Total 100 ml Other 100 ml # Voids 2 # Bowel Movements 3 1 Height (Feet): 5 Height (Inches): 3.00 Weight (Pounds): 126 Objective General Appearance: WD/WN, confused. on trach collar Neck: supple Cardiovascular: normal rate, regular rhythm Respiratory/Chest: chest wall non-tender, rhonchi - bilaterally(minimal) Abdomen: normal bowel sounds, non tender, soft, no organomegaly Edema: no edema noted Arm (L), no edema noted Arm (R), no edema noted Leg (L), no edema noted Leg (R), no edema noted Pedal (L), no edema noted Pedal (R), no edema noted Generalized Neurologic: disoriented, unresponsive, aphasia Irvin Beltrán MD May 31, 2019 12:02
--- NOTE | 2019-05-31 14:00 | NUR ---
NURSE NOTES: Pt orally suctioned and repositioned. No acute distress noted at this time.
--- NOTE | 2019-05-31 16:00 | NUR ---
NURSE NOTES: Pt repositioned, oral care performed and pt endotracheally suctioned. GT site cleaned and dressing changed. No acute distress noted.
--- NOTE | 2019-05-31 18:00 | NUR ---
NURSE NOTES: Pt repositioned and orally suctioned. No acute distress noted at this time. Will continue to monitor.
--- NOTE | 2019-05-31 19:10 | NUR ---
HAND-OFF: Report given to JEANNINE Church.
--- NOTE | 2019-05-31 19:11 | NUR ---
NURSE NOTES: Endorsement received from JEANNINE Delgado. Patient opens eyes, does not track. Shiley XLT receiving 28%, 5 liters on cool aerosol. With GJ tube. G tube connected to low intermittent suction. J tube receiving Vital 1.2 at 60ml/hr. Purewick in place. Right forearm g24. No signs of infiltration. On P200 mattress. On seizure precautions. Call light within reach. Head of bed kept elevated. Bed locked and in low position. Bed alarm on. Will continue to monitor.
[2019-05-31] MEDS ORDERED: levETIRAcetam 500mg/5ml Liquid NG SCH (21:15)
--- NOTE | 2019-05-31 21:42 | NUR ---
NURSE NOTES: With an order from Dr. Hagen to call Pharmacist to renew medications that were last week including seizure medications. Also with an order to give one time dose of Keppra 1000 mg now then Keppra 500mg Q12 starting tomorrow morning. Keppra 1000mg given. Called Pharmacy, spoke with Pharmacist Kali, reviewed medications past 7 days and medications were already renewed.
--- NOTE | 2019-05-31 22:00 | Progress Note ---
DATE: 05/31/2019 CARDIOLOGY PROGRESS NOTE SUBJECTIVE: The patient remaining without any new distress. Vitals are stable. Monitored sinus. Discharge planning in progress. PHYSICAL EXAMINATION: VITAL SIGNS: Blood pressure , pulse 78, respiratory rate 22, afebrile. HEENT: T-tube collar. LUNGS: With few rhonchi, generally clear. HEART: Regular rhythm and rate. Normal S1, S2 with no new murmur. ABDOMEN: Soft. GJ tube intact. EXTREMITIES: Trace dependent edema. SKIN: Wounds have healed. IMPRESSION: 1. Stabilize cardiopulmonary parameters. 2. Increased pulse pressure is chronic and of no hemodynamic significance in this setting. 3. Current cardiovascular regimen is appropriate. 4. Fine tuning may be required as an outpatient. 5. We will follow up until the patient is discharged. Bg Hagen M.D. DR: Stephanie JOB#: [id number] CC:
[2019-06-01] VITALS (24 sets, daily range): BP systolic 94–146; BP diastolic 27–55
--- NOTE | 2019-06-01 | NUR ---
NURSE NOTES: Patient asleep. No signs of pain or discomfort. Secretions suctioned.
--- NOTE | 2019-06-01 02:00 | NUR ---
NURSE NOTES: Sinus rhythm on the monitor. No acute changes
--- NOTE | 2019-06-01 05:00 | NUR ---
NURSE NOTES: Oral care, bed bath, change of linens and dressings done.
--- NOTE | 2019-06-01 07:26 | NUR ---
HAND-OFF: Report given to Radha canchola RN.
--- NOTE | 2019-06-01 07:27 | NUR ---
NURSE NOTES: Report received from JEANNINE Kraus. Pt is sleeping and able to respond to tactile stimuli. Non-verbal and not able to follow commands. Opens eyes spontaneously. Sinus rhythm 70's on lunchroom monitor. Pt has T-piece with cool aerosol 28%, 5L. O2 sat 100%. RR 21. Small amount of white thin secretion from T-piece and mouth. Pt coughs at times. GJ tube in place. Via J tube, pt is receiving Vital AF 1.2 at 60cc/hr. G tube is connected to low intermittent suction. Pure-wick in place draining yellow urine via suction. IV to right FA G24 patent and asymptomatic. Bed in lowest position. Side rails up x3. Will resume plan of care.
[2019-06-01] MEDS: Carvedilol 6.25mg Tab GT SCH ×2 (08:27→21:03)
[2019-06-01] MEDS: levETIRAcetam 500mg/5ml Liquid NG SCH ×2 (08:27→21:03)
[2019-06-01] MEDS: Magnesium Oxide 400mg tab GT SCH ×3 (08:27→17:23)
[2019-06-01] MEDS: Heparin 5000 units/ml inj SUBQ SCH ×2 (08:28→21:04)
[2019-06-01] MEDS: Pantoprazole Inj IVP SCH (08:28)
--- NOTE | 2019-06-01 08:47 | Pulmonology Progress Note ---
Assessment/Plan Assessment/Plan Impression: Fungemia KPC+ history of Pneumonia/ respiratory congestion Trach, G tube, Hypertension, Cardiac disease, Dementia, Previous CVA, Seizure disorder, Respiratory failure with hypoxia Anemia, Sacral ulcer renal cyst chronic pulmonary congestion Plan antifungals antimicrobials per ID ID following and care noted overall pulmonary status slightly improved monitor imaging for change and monitor secretions Vent PRN but DNR as per family monitor labs for change and recommend further elevate head and monitor secretions monitor labs for change monitor vitals; and adjust meds; cards following; DNR. No CPR. ICU care reviewed meds noted and updated; neb therapy off load as able prognosis very poor nutrition/fees/ dietary as is; monitor residuals skin care management reviewed difficulty with placement all changes noted and discussed chronic management as able medications/laboratory data/nursing notes/ICU care reviewed in detail note reviewed and edited care discussed with RN and RT time spent x 38minutes Subjective ROS Limited/Unobtainable: Yes Allergies: Coded Allergies: CODEINE (Verified Allergy, Unknown, HIVES, 09/15/09) Subjective overnight events noted; remains poorly responsive still with congestion- needs suctioning on isolation; remains off vent for now Fungemia; noted KPC; being treated off vent ICU care issues discussed Objective Last 24 Hour Vital Signs Date Time Temp Pulse Resp B/P (MAP) Pulse Ox O2 Delivery O2 Flow Rate FiO2 06/01/19 08:27 70 120/33 06/01/19 08:00 T-piece 5.0 T-piece 5.0 T-piece 5.0 06/01/19 08:00 76 20 120/33 (62) 100 76 06/01/19 08:00 5.0 28 06/01/19 07:50 100 T-Piece 5.0 28 06/01/19 07:00 97.6 73 19 123/41 (68) 99 73 06/01/19 06:00 76 24 137/41 (73) 99 76 06/01/19 05:00 84 20 136/52 (80) 100 84 06/01/19 04:00 T-piece 5.0 T-piece 5.0 T-piece 5.0 06/01/19 04:00 98.5 79 23 109/39 (62) 100 79 06/01/19 04:00 81 06/01/19 04:00 5.0 28 06/01/19 03:00 80 23 110/43 (65) 100 80 06/01/19 02:00 78 22 105/40 (61) 100 78 06/01/19 01:20 100 T-Piece 5.0 28 06/01/19 01:00 79 20 110/38 (62) 100 79 06/01/19 00:00 T-piece 5.0 T-piece 5.0 T-piece 5.0 06/01/19 00:00 5.0 28 06/01/19 00:00 77 06/01/19 00:00 98.5 78 22 94/27 (49) 100 78 05/31/19 23:06 79 21 100 T-Piece 5.0 28 77 22 100 05/31/19 23:00 80 23 93/37 (55) 100 80 05/31/19 22:00 80 21 112/37 (62) 98 80 05/31/19 21:14 80 113/39 05/31/19 21:00 77 21 113/39 (63) 98 77 05/31/19 20:00 5.0 28 05/31/19 20:00 79 05/31/19 20:00 T-piece 5.0 T-piece 5.0 T-piece 5.0 05/31/19 20:00 98.3 78 20 114/39 (64) 100 78 05/31/19 19:22 77 21 100 T-Piece 5.0 28 79 20 100 05/31/19 19:22 100 T-Piece 5.0 28 05/31/19 19:00 77 22 96/38 (57) 98 05/31/19 18:00 79 26 131/41 (71) 97 05/31/19 17:00 76 12 116/37 (63) 98 05/31/19 16:00 81 05/31/19 16:00 98.8 83 21 135/36 (69) 98 05/31/19 16:00 T-piece 5.0 T-piece 5.0 T-piece 5.0 05/31/19 16:00 5.0 28 05/31/19 15:34 77 18 100 T-Piece 5.0 28 80 18 100 05/31/19 15:00 79 21 115/26 (55) 98 05/31/19 14:00 82 23 120/37 (64) 98 05/31/19 13:16 100 T-Piece 5.0 28 05/31/19 13:00 82 23 134/105 (115) 100 05/31/19 12:00 T-piece 5.0 T-piece 5.0 T-piece 5.0 05/31/19 12:00 5.0 28 05/31/19 12:00 77 05/31/19 12:00 98.7 78 22 123/35 (64) 99 05/31/19 11:00 78 22 119/28 (58) 97 05/31/19 10:00 81 22 141/39 (73) 97 05/31/19 09:10 78 122/32 05/31/19 09:00 79 22 122/32 (62) 100 Intake and Output 05/31/19 06/01/19 19:00 07:00 Intake Total 1470 ml 1470 ml Output Total 600 ml 500 ml Balance 870 ml 970 ml Free Water 300 ml 300 ml Tube Feeding 720 ml 720 ml Other 450 ml 450 ml Output Urine Total 500 ml 300 ml Gastric Drainage Total 100 ml 200 ml # Bowel Movements 1 Objective WDWN NAD on oxygen off vent reduced breath sounds bilaterally with some rhonchi but no wheezes D3H4OFP without MRG NABS nontender no HSM no CC some edema contractures noted nonfocal nonverbal trach and gt reviewed and edited Current Medications Medications (Trade) Dose Ordered Sig/Maicol Route PRN Reason Start Time Stop Time Status Last Admin Dose Admin Acetaminophen (Tylenol) 650 mg Q4H PRN RECTAL T>100.5 / Mild Pain 05/07/19 09:45 06/06/19 09:44 05/07/19 10:13 Atropine Sulfate (Atropine Opth Adriana) 1 drop Q6HR SL 05/11/19 00:00 06/10/19 08:59 06/01/19 06:18 Carvedilol (Coreg) 6.25 mg EVERY 12 HOURS GT 05/23/19 21:00 06/22/19 20:59 06/01/19 08:27 Heparin Sodium (Porcine) (Heparin 5000 units/ml) 5,000 units EVERY 12 HOURS SUBQ 05/31/19 21:15 06/30/19 21:14 06/01/19 08:28 Hydralazine HCl (Apresoline) 10 mg Q4H PRN IV For High Blood Pressure 05/11/19 05:45 06/10/19 05:44 05/12/19 00:08 Levetiracetam (Keppra) 500 mg Q12HR NG 06/01/19 09:00 07/01/19 08:59 06/01/19 08:27 Magnesium Oxide (Mag-Ox 400mg) 400 mg THREE TIMES A DAY GT 05/31/19 09:00 06/23/19 12:59 06/01/19 08:27 Pantoprazole (Protonix) 40 mg DAILY IVP 05/15/19 18:15 06/14/19 18:14 06/01/19 08:28 Amaury Chan MD Jun 01, 2019 08:47
--- NOTE | 2019-06-01 09:30 | NUR ---
NURSE NOTES: Dr Vaughan here to see the patient. Updated him with pt's current condition. No new orders. Suctioned via T-piece and orally. Small amount of white thin secretion noted. Will continue to monitor.
--- NOTE | 2019-06-01 09:58 | Nephrology Progress Note ---
Assessment/Plan Problem List: (1) Acute renal failure (ARF) Assessment: Cr stable (2) Chronic respiratory failure (3) Anemia (4) Sepsis Assessment Acute renal failure Respiratory failure - Trach Low Mag- Low k , Low Na Anemia UTI / Sepsis Proteinuria / HypoAlbuminemia high Trigs Sz decubs bed bound DNR Plan on Coreg now discussed with Dr Beltrán Transfused 05/09 has JT bolus Albumin as needed K and Mag and Phos supplement as needed Hydrate as needed Urine studies avoid Nephrotoxics mag K Phos supplements as needed monitor renal parameters Subjective ROS Limited/Unobtainable: Yes Objective Objective Last 24 Hour Vital Signs Date Time Temp Pulse Resp B/P (MAP) Pulse Ox O2 Delivery O2 Flow Rate FiO2 06/01/19 09:00 75 16 133/48 (76) 100 75 06/01/19 08:27 70 120/33 06/01/19 08:00 T-piece 5.0 T-piece 5.0 T-piece 5.0 06/01/19 08:00 76 20 120/33 (62) 100 76 06/01/19 08:00 75 06/01/19 08:00 5.0 28 06/01/19 07:50 100 T-Piece 5.0 28 06/01/19 07:00 97.6 73 19 123/41 (68) 99 73 06/01/19 06:00 76 24 137/41 (73) 99 76 06/01/19 05:00 84 20 136/52 (80) 100 84 06/01/19 04:00 T-piece 5.0 T-piece 5.0 T-piece 5.0 06/01/19 04:00 98.5 79 23 109/39 (62) 100 79 06/01/19 04:00 81 06/01/19 04:00 5.0 28 06/01/19 03:00 80 23 110/43 (65) 100 80 06/01/19 02:00 78 22 105/40 (61) 100 78 06/01/19 01:20 100 T-Piece 5.0 28 06/01/19 01:00 79 20 110/38 (62) 100 79 06/01/19 00:00 T-piece 5.0 T-piece 5.0 T-piece 5.0 06/01/19 00:00 5.0 28 06/01/19 00:00 77 06/01/19 00:00 98.5 78 22 94/27 (49) 100 78 05/31/19 23:06 79 21 100 T-Piece 5.0 28 77 22 100 05/31/19 23:00 80 23 93/37 (55) 100 80 05/31/19 22:00 80 21 112/37 (62) 98 80 05/31/19 21:14 80 113/39 05/31/19 21:00 77 21 113/39 (63) 98 77 05/31/19 20:00 5.0 28 05/31/19 20:00 79 05/31/19 20:00 T-piece 5.0 T-piece 5.0 T-piece 5.0 05/31/19 20:00 98.3 78 20 114/39 (64) 100 78 05/31/19 19:22 77 21 100 T-Piece 5.0 28 79 20 100 05/31/19 19:22 100 T-Piece 5.0 28 05/31/19 19:00 77 22 96/38 (57) 98 05/31/19 18:00 79 26 131/41 (71) 97 05/31/19 17:00 76 12 116/37 (63) 98 05/31/19 16:00 81 05/31/19 16:00 98.8 83 21 135/36 (69) 98 05/31/19 16:00 T-piece 5.0 T-piece 5.0 T-piece 5.0 05/31/19 16:00 5.0 28 05/31/19 15:34 77 18 100 T-Piece 5.0 28 80 18 100 05/31/19 15:00 79 21 115/26 (55) 98 05/31/19 14:00 82 23 120/37 (64) 98 05/31/19 13:16 100 T-Piece 5.0 28 05/31/19 13:00 82 23 134/105 (115) 100 05/31/19 12:00 T-piece 5.0 T-piece 5.0 T-piece 5.0 05/31/19 12:00 5.0 28 05/31/19 12:00 77 05/31/19 12:00 98.7 78 22 123/35 (64) 99 05/31/19 11:00 78 22 119/28 (58) 97 05/31/19 10:00 81 22 141/39 (73) 97 Intake and Output 05/31/19 06/01/19 19:00 07:00 Intake Total 1470 ml 1470 ml Output Total 600 ml 500 ml Balance 870 ml 970 ml Free Water 300 ml 300 ml Tube Feeding 720 ml 720 ml Other 450 ml 450 ml Output Urine Total 500 ml 300 ml Gastric Drainage Total 100 ml 200 ml # Bowel Movements 1 Height (Feet): 5 Height (Inches): 3.00 Weight (Pounds): 130 General Appearance: no apparent distress, lethargic EENT: other - vented Respiratory/Chest: decreased breath sounds Abdomen: distended Objective no change Eric Cortez MD Jun 01, 2019 09:58
[2019-06-01] MEDS: Albuterol/Ipratropium 3ml neb HHN SCH ×4 (10:42→23:44)
--- NOTE | 2019-06-01 11:02 | Infectious Diseases Prog Note ---
"Assessment/Plan Assessment/Plan antibiotics :none A 1. delano parapsilosis fungemia s/p rx 2. klebsiella sepsis s/p rx 3. respiratory failure 4. hypertension 5. CVA 6. dementia 7. rectal VRE colonization 8. leucocytosis resolved 9. pseudomonas | providencia pneumonia s/p rx P 1. continue off antibiotics Subjective ROS Limited/Unobtainable: Yes Allergies: Coded Allergies: CODEINE (Verified Allergy, Unknown, HIVES, 09/15/09) Objective Vital Signs Last 24 Hour Vital Signs Date Time Temp Pulse Resp B/P (MAP) Pulse Ox O2 Delivery O2 Flow Rate FiO2 06/01/19 10:42 74 21 100 T-Piece 5.0 28 72 22 100 06/01/19 10:00 73 20 116/49 (71) 100 73 06/01/19 09:00 75 16 133/48 (76) 100 75 06/01/19 08:27 70 120/33 06/01/19 08:00 T-piece 5.0 T-piece 5.0 T-piece 5.0 06/01/19 08:00 76 20 120/33 (62) 100 76 06/01/19 08:00 75 06/01/19 08:00 5.0 28 06/01/19 07:50 100 T-Piece 5.0 28 06/01/19 07:00 97.6 73 19 123/41 (68) 99 73 06/01/19 06:00 76 24 137/41 (73) 99 76 06/01/19 05:00 84 20 136/52 (80) 100 84 06/01/19 04:00 T-piece 5.0 T-piece 5.0 T-piece 5.0 06/01/19 04:00 98.5 79 23 109/39 (62) 100 79 06/01/19 04:00 81 06/01/19 04:00 5.0 28 06/01/19 03:00 80 23 110/43 (65) 100 80 06/01/19 02:00 78 22 105/40 (61) 100 78 06/01/19 01:20 100 T-Piece 5.0 28 06/01/19 01:00 79 20 110/38 (62) 100 79 06/01/19 00:00 T-piece 5.0 T-piece 5.0 T-piece 5.0 06/01/19 00:00 5.0 28 06/01/19 00:00 77 06/01/19 00:00 98.5 78 22 94/27 (49) 100 78 05/31/19 23:06 79 21 100 T-Piece 5.0 28 77 22 100 05/31/19 23:00 80 23 93/37 (55) 100 80 05/31/19 22:00 80 21 112/37 (62) 98 80 05/31/19 21:14 80 113/39 05/31/19 21:00 77 21 113/39 (63) 98 77 05/31/19 20:00 5.0 28 05/31/19 20:00 79 05/31/19 20:00 T-piece 5.0 T-piece 5.0 T-piece 5.0 05/31/19 20:00 98.3 78 20 114/39 (64) 100 78 05/31/19 19:22 77 21 100 T-Piece 5.0 28 79 20 100 05/31/19 19:22 100 T-Piece 5.0 28 05/31/19 19:00 77 22 96/38 (57) 98 05/31/19 18:00 79 26 131/41 (71) 97 05/31/19 17:00 76 12 116/37 (63) 98 05/31/19 16:00 81 05/31/19 16:00 98.8 83 21 135/36 (69) 98 05/31/19 16:00 T-piece 5.0 T-piece 5.0 T-piece 5.0 05/31/19 16:00 5.0 28 05/31/19 15:34 77 18 100 T-Piece 5.0 28 80 18 100 05/31/19 15:00 79 21 115/26 (55) 98 05/31/19 14:00 82 23 120/37 (64) 98 05/31/19 13:16 100 T-Piece 5.0 28 05/31/19 13:00 82 23 134/105 (115) 100 05/31/19 12:00 T-piece 5.0 T-piece 5.0 T-piece 5.0 05/31/19 12:00 5.0 28 05/31/19 12:00 77 05/31/19 12:00 98.7 78 22 123/35 (64) 99 Height (Feet): 5 Height (Inches): 3.00 Weight (Pounds): 130 HEENT: status post trach Respiratory/Chest: crackles/rales Cardiovascular: normal rate, regular rhythm, no gallop/murmur Abdomen: soft, non tender, other - GT Extremities: no edema Current Medications Medications (Trade) Dose Ordered Sig/Maicol Route PRN Reason Start Time Stop Time Status Last Admin Dose Admin Acetaminophen (Tylenol) 650 mg Q4H PRN RECTAL T>100.5 / Mild Pain 05/07/19 09:45 06/06/19 09:44 05/07/19 10:13 Albuterol/ Ipratropium (Albuterol/ Ipratropium) 3 ml Q4HRT HHN 06/01/19 11:00 06/06/19 10:59 06/01/19 10:42 Atropine Sulfate (Atropine Opth Adriana) 1 drop Q6HR SL 05/11/19 00:00 06/10/19 08:59 06/01/19 06:18 Carvedilol (Coreg) 6.25 mg EVERY 12 HOURS GT 05/23/19 21:00 06/22/19 20:59 06/01/19 08:27 Heparin Sodium (Porcine) (Heparin 5000 units/ml) 5,000 units EVERY 12 HOURS SUBQ 05/31/19 21:15 06/30/19 21:14 06/01/19 08:28 Hydralazine HCl (Apresoline) 10 mg Q4H PRN IV For High Blood Pressure 05/11/19 05:45 06/10/19 05:44 05/12/19 00:08 Levetiracetam (Keppra) 500 mg Q12HR NG 06/01/19 09:00 07/01/19 08:59 06/01/19 08:27 Magnesium Oxide (Mag-Ox 400mg) 400 mg THREE TIMES A DAY GT 05/31/19 09:00 06/23/19 12:59 06/01/19 08:27 Pantoprazole (Protonix) 40 mg DAILY IVP 05/15/19 18:15 06/14/19 18:14 06/01/19 08:28 Geovany Yang MD Jun 01, 2019 11:01"
--- NOTE | 2019-06-01 11:16 | NUR ---
*-* DISCHARGE PLANNING *-* PATIENT HAS BEEN REFERRED TOO: [facility]/SUBACUTE ATTN: JEROMY Guerrero; [phone] F: [phone]
--- NOTE | 2019-06-01 11:16 | NUR ---
NURSE NOTES: Turned and repositioned pt. Suctioned PRN. No acute distress noted. VSS. Will continue to monitor.
--- NOTE | 2019-06-01 11:30 | NUR ---
NURSE NOTES: Daughter came and stated that she just visited [facility] and wish to transfer patient to there. Charge nurse spoke with Danielle regarding transfer patient to [facility] and also possible to transfer to [place]. Awaiting call back from Danielle. Daughter at bedside. Addendum: 06/01/19 at 1430 by AMOS KHOURY RN RN NURSE NOTES: Daughter came and stated that she just visited [facility] and wish to transfer patient to there. Charge nurse spoke with Deirdre regarding transfer patient to [facility] and also possible to transfer to [place]. Awaiting call back from Deirdre. Daughter at bedside.
--- NOTE | 2019-06-01 13:35 | General Progress Note ---
Assessment/Plan Problem List: (1) Seizure ICD Codes: R56.9 - Unspecified convulsions SNOMED: 07800607 (2) Anemia ICD Codes: D64.9 - Anemia, unspecified SNOMED: 457908222 Qualifiers: Qualified Codes: D64.9 - Anemia, unspecified (3) Sepsis ICD Codes: A41.9 - Sepsis, unspecified organism SNOMED: 12976945, 070421808 Qualifiers: Qualified Codes: A41.9 - Sepsis, unspecified organism (4) Respiratory failure with hypoxia ICD Codes: J96.91 - Respiratory failure, unspecified with hypoxia SNOMED: 54625965898486857 Qualifiers: Qualified Codes: J96.21 - Acute and chronic respiratory failure with hypoxia (5) HCAP (healthcare-associated pneumonia) ICD Codes: J18.9 - Pneumonia, unspecified organism SNOMED: 665694592, 447001514 (6) Sacral decubitus ulcer ICD Codes: L89.159 - Pressure ulcer of sacral region, unspecified stage SNOMED: 594106119 (7) HTN (hypertension) ICD Codes: I10 - Essential (primary) hypertension SNOMED: 83878815 (8) Chronic vegetative state ICD Codes: R40.3 - Persistent vegetative state SNOMED: 95676023 (9) Chronic respiratory failure ICD Codes: J96.10 - Chronic respiratory failure, unspecified whether with hypoxia or hypercapnia SNOMED: 50726338 (10) Limited mobility ICD Codes: Z74.09 - Other reduced mobility SNOMED: 1199140 Status: stable, progressing Assessment/Plan: monitor off abx monitor for bleeding vent as needed resp rx suctioning monitor lytes j tube feeds g port to gravity skin care sz rx bowel regime monitor lfts stable for dc to lower level. d.w dtr- she still prefers [place] [facility] she agrees to [place] if bed available there Subjective ROS Limited/Unobtainable: Yes Constitutional: Reports: malaise, weakness HEENT: Reports: no symptoms Cardiovascular: Reports: no symptoms Respiratory: Reports: shortness of breath, sputum Gastrointestinal/Abdominal: Reports: difficulty swallowing Genitourinary: Reports: no symptoms Neurologic/Psychiatric: Reports: pre-existing deficit, seizure Endocrine: Reports: no symptoms Hematologic/Lymphatic: Reports: anemia Allergies: Coded Allergies: CODEINE (Verified Allergy, Unknown, HIVES, 09/15/09) All Systems: reviewed and negative except above Subjective no events. stable on the vent. no fevers or chills. nol congestion. no szs, tolerating feeds. d/w dtr x 30 mins. prefers [facility] Objective Last 24 Hour Vital Signs Date Time Temp Pulse Resp B/P (MAP) Pulse Ox O2 Delivery O2 Flow Rate FiO2 06/01/19 13:12 100 T-Piece 5.0 28 06/01/19 12:00 T-piece 5.0 T-piece 5.0 T-piece 5.0 06/01/19 12:00 5.0 28 06/01/19 12:00 97.7 80 23 146/52 (83) 100 80 06/01/19 11:00 73 21 124/27 (59) 100 73 06/01/19 10:42 74 21 100 T-Piece 5.0 28 72 22 100 06/01/19 10:00 73 20 116/49 (71) 100 73 06/01/19 09:00 75 16 133/48 (76) 100 75 06/01/19 08:27 70 120/33 06/01/19 08:00 T-piece 5.0 T-piece 5.0 T-piece 5.0 06/01/19 08:00 76 20 120/33 (62) 100 76 06/01/19 08:00 75 06/01/19 08:00 5.0 28 06/01/19 07:50 100 T-Piece 5.0 28 06/01/19 07:00 97.6 73 19 123/41 (68) 99 73 06/01/19 06:00 76 24 137/41 (73) 99 76 06/01/19 05:00 84 20 136/52 (80) 100 84 06/01/19 04:00 T-piece 5.0 T-piece 5.0 T-piece 5.0 06/01/19 04:00 98.5 79 23 109/39 (62) 100 79 06/01/19 04:00 81 06/01/19 04:00 5.0 28 06/01/19 03:00 80 23 110/43 (65) 100 80 06/01/19 02:00 78 22 105/40 (61) 100 78 3/2/20 01:20 100 T-Piece 5.0 28 06/01/19 01:00 79 20 110/38 (62) 100 79 06/01/19 00:00 T-piece 5.0 T-piece 5.0 T-piece 5.0 06/01/19 00:00 5.0 28 06/01/19 00:00 77 06/01/19 00:00 98.5 78 22 94/27 (49) 100 78 05/31/19 23:06 79 21 100 T-Piece 5.0 28 77 22 100 05/31/19 23:00 80 23 93/37 (55) 100 80 05/31/19 22:00 80 21 112/37 (62) 98 80 05/31/19 21:14 80 113/39 05/31/19 21:00 77 21 113/39 (63) 98 77 05/31/19 20:00 5.0 28 05/31/19 20:00 79 05/31/19 20:00 T-piece 5.0 T-piece 5.0 T-piece 5.0 05/31/19 20:00 98.3 78 20 114/39 (64) 100 78 05/31/19 19:22 77 21 100 T-Piece 5.0 28 79 20 100 05/31/19 19:22 100 T-Piece 5.0 28 05/31/19 19:00 77 22 96/38 (57) 98 05/31/19 18:00 79 26 131/41 (71) 97 05/31/19 17:00 76 12 116/37 (63) 98 05/31/19 16:00 81 05/31/19 16:00 98.8 83 21 135/36 (69) 98 05/31/19 16:00 T-piece 5.0 T-piece 5.0 T-piece 5.0 05/31/19 16:00 5.0 28 05/31/19 15:34 77 18 100 T-Piece 5.0 28 80 18 100 05/31/19 15:00 79 21 115/26 (55) 98 05/31/19 14:00 82 23 120/37 (64) 98 Intake and Output 05/31/19 06/01/19 19:00 07:00 Intake Total 1470 ml 1470 ml Output Total 600 ml 500 ml Balance 870 ml 970 ml Free Water 300 ml 300 ml Tube Feeding 720 ml 720 ml Other 450 ml 450 ml Output Urine Total 500 ml 300 ml Gastric Drainage Total 100 ml 200 ml # Bowel Movements 1 Height (Feet): 5 Height (Inches): 3.00 Weight (Pounds): 130 Objective General Appearance: WD/WN, confused. on trach collar Neck: supple Cardiovascular: normal rate, regular rhythm Respiratory/Chest: chest wall non-tender, rhonchi - bilaterally(minimal) Abdomen: normal bowel sounds, non tender, soft, no organomegaly Edema: no edema noted Arm (L), no edema noted Arm (R), no edema noted Leg (L), no edema noted Leg (R), no edema noted Pedal (L), no edema noted Pedal (R), no edema noted Generalized Neurologic: disoriented, unresponsive, aphasia Irvin Beltrán MD Jun 01, 2019 13:35
--- NOTE | 2019-06-01 14:30 | NUR ---
NURSE NOTES: Turned and repositioned pt. Afebrile. G tube is connected low intermittant suction, draining yellow emesis. J tube is receiving Vital AF 1.2 at 60cc/hr. No residual noted. Water flush to each tube as ordered.
--- NOTE | 2019-06-01 14:54 | NUR ---
NETWORK INTERNPIPE FINISHING SUPERVISOR SI: RESP FAILURE TRACH/COOL AEROSOL T. 97.7 HR 80 RR 23 B/P 146/52 TRACH FIO2 28% IS: HEPARIN SUBC KEPPRA GT ALB INLINE TX PROTONIX IV ICU STATUS
--- NOTE | 2019-06-01 14:57 | NUR ---
BICYCLE TAXI DRIVER SHARITA SPOKE WITH JEROMY FROM [facility], INQUIRY FAXED. SPOKE WITH DANIEL FROM [facility] INQUIRY RECEIVED AND GIVEN TO THE FISH HOUSEKEEPER FOR REVIEW. PER DANIEL SHE WILL CALL ME BY THE END OF THE DAY FOR WITH DECISION.WILL FOLLOW UP. SPOKE WITH ELIF FROM [facility] TO ACCEPT PT AT THIS TIME. SPOKE WITH JUNE FROM [facility] BED STILL AVAILABLE AT THIS TIME. SPOKE WITH ARY FROM [facility] BED IS STILL AVAILABLE AT THIS TIME. Addendum: 06/01/19 at 1707 by FADY LEWIS RN RN SPOKE WITH DANIEL FROM [facility], NO DECISION YET. THE ROUTE MANAGER WAS IN MEETINGS ALL DAY, WILL FOLLOW UP IN AM. UPDATED.
--- NOTE | 2019-06-01 17:00 | NUR ---
NURSE NOTES: Cleaned pt for small amount of soft brown incontinent BM. Trach collar dressing changed. Suctioned secretion from mouth and T-piece. VSS. Will continue to monitor.
--- NOTE | 2019-06-01 19:40 | NUR ---
NURSE NOTES: Received report from JEANNINE Barrett. Pt is sleeping on the bed and obtunded. Pt is nonverbal. Family;daughter stays at bedside. On quality assurance monitor body with SR. On T-piece; shiley XLT #6, 28% FiO2, O2 5L and SaO2 100% noted. Given tracheal and oral suction. Provided oral care. On J-tube feeding with vital 1.2 @ 60cc/hr and no residual noted. on G-tubed site with low intermittent suction and noted greenish color discharge. Keep HOB. Heels and sacrum dressed in Optifoam for skin protection, pt on p200 mattress. IV site intact and no sign of infiltration noted. Purewicks in place. Placed fall and seizure precaution. Will continue to care plan.
--- NOTE | 2019-06-01 19:40 | NUR ---
HAND-OFF: Report given to JEANNINE Britt.
--- NOTE | 2019-06-01 20:00 | NUR ---
NURSE NOTES: Given tracheal and oral suction. Provided oral care. Change position. No fever. Will continue to monitor any change of condition.
--- NOTE | 2019-06-01 21:50 | General Progress Note ---
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 - Anemia with OB (-) stools - Resp failure, s/p Trach - OBS, vegetative obtunded unresponsive state, bedbound with contracted extremities - h/o minor GJ tube site irritation - poor Prognosis Recommendations - No plans for immune suppression (risk benefit ratio in favor of holding off Rx ) - PPI daily - Cristian BID - antibiotic ointment to GJT site PRN - aspiration precautions - elevate HOB - Vital AF 1.2 - J tube feeds and G tube ---> LIS Subjective Allergies: Coded Allergies: CODEINE (Verified Allergy, Unknown, HIVES, 09/15/09) Subjective above noted d/w RN tolerating TF Objective Last 24 Hour Vital Signs Date Time Temp Pulse Resp B/P (MAP) Pulse Ox O2 Delivery O2 Flow Rate FiO2 06/01/19 21:03 76 125/54 06/01/19 21:00 80 18 125/32 (63) 100 74 06/01/19 20:00 75 06/01/19 20:00 98.3 75 20 123/37 (65) 100 74 06/01/19 20:00 T-piece 5.0 T-piece 5.0 T-piece 5.0 06/01/19 20:00 5.0 28 06/01/19 19:46 100 T-Piece 5.0 28 06/01/19 19:46 76 19 100 T-Piece 5.0 28 73 21 100 06/01/19 19:00 75 22 116/40 (65) 100 75 06/01/19 19:00 75 22 116/40 (65) 100 06/01/19 18:00 78 22 123/33 (63) 99 78 06/01/19 17:00 74 20 128/33 (64) 100 74 06/01/19 16:00 T-piece 5.0 T-piece 5.0 T-piece 5.0 06/01/19 16:00 5.0 28 06/01/19 16:00 97.9 75 22 131/55 (80) 100 75 06/01/19 15:00 75 21 114/43 (66) 100 06/01/19 15:00 77 20 100 T-Piece 5.0 28 76 20 100 06/01/19 14:00 74 21 104/33 (56) 100 74 06/01/19 13:12 100 T-Piece 5.0 28 06/01/19 13:00 74 23 114/29 (57) 100 74 06/01/19 12:00 T-piece 5.0 T-piece 5.0 T-piece 5.0 06/01/19 12:00 5.0 28 06/01/19 12:00 97.7 80 23 146/52 (83) 100 80 06/01/19 11:52 75 06/01/19 11:00 73 21 124/27 (59) 100 73 06/01/19 10:42 74 21 100 T-Piece 5.0 28 72 22 100 06/01/19 10:00 73 20 116/49 (71) 100 73 06/01/19 09:00 75 16 133/48 (76) 100 75 06/01/19 08:27 70 120/33 06/01/19 08:00 T-piece 5.0 T-piece 5.0 T-piece 5.0 06/01/19 08:00 76 20 120/33 (62) 100 76 06/01/19 08:00 75 06/01/19 08:00 5.0 28 06/01/19 07:50 100 T-Piece 5.0 28 06/01/19 07:00 97.6 73 19 123/41 (68) 99 73 06/01/19 06:00 76 24 137/41 (73) 99 76 06/01/19 05:00 84 20 136/52 (80) 100 84 06/01/19 04:00 T-piece 5.0 T-piece 5.0 T-piece 5.0 06/01/19 04:00 98.5 79 23 109/39 (62) 100 79 06/01/19 04:00 81 06/01/19 04:00 5.0 28 06/01/19 03:00 80 23 110/43 (65) 100 80 06/01/19 02:00 78 22 105/40 (61) 100 78 06/01/19 01:20 100 T-Piece 5.0 28 06/01/19 01:00 79 20 110/38 (62) 100 79 06/01/19 00:00 T-piece 5.0 T-piece 5.0 T-piece 5.0 06/01/19 00:00 5.0 28 06/01/19 00:00 77 06/01/19 00:00 98.5 78 22 94/27 (49) 100 78 05/31/19 23:06 79 21 100 T-Piece 5.0 28 77 22 100 05/31/19 23:00 80 23 93/37 (55) 100 80 05/31/19 22:00 80 21 112/37 (62) 98 80 Intake and Output 05/31/19 06/01/19 18:59 06:59 Intake Total 1470 ml 1470 ml Output Total 1300 ml 500 ml Balance 170 ml 970 ml Free Water 300 ml 300 ml Tube Feeding 720 ml 720 ml Other 450 ml 450 ml Output Urine Total 1100 ml 300 ml Gastric Drainage Total 100 ml 200 ml Other 100 ml # Bowel Movements 1 Height (Feet): 5 Height (Inches): 3.00 Weight (Pounds): 130 Objective Debilitated AA woman non-verbal, obtunded NCAT (+) trach coarse BS RR obese abd, (+) GJT no edema (+) contractured extremities Celio Vaughan MD Jun 01, 2019 21:50
--- NOTE | 2019-06-01 22:00 | NUR ---
NURSE NOTES: oral care was done. Given suction. On JG tube feeding and tolerated well. Changed position. Will continue to monitor any change of condition.
[2019-06-02] VITALS (19 sets, daily range): BP systolic 91–141; BP diastolic 24–48
--- NOTE | 2019-06-02 | NUR ---
NURSE NOTES: Pt is sleeping on the bed and no sign of acute distress noted. On T-piece with cool aerosol and FiO2 28% and SaO2 99-100% noted. Given tracheal and oral suction. On J-tube feeding and no residual noted and tolerated well. Changed position. Placed fall and seizure precaution. Will continue to care plan.
--- NOTE | 2019-06-02 02:00 | NUR ---
NURSE NOTES: Pt is sleeping on the bed and no sign of acute distress noted. No sigh of pain by FLACC scale. V/S stable. Tracheal and oral suction was done. Repositioned. Will continue to monitor any change of condition.
[2019-06-02] MEDS: Albuterol/Ipratropium 3ml neb HHN SCH ×4 (03:23→14:45)
--- NOTE | 2019-06-02 04:00 | NUR ---
NURSE NOTES: Morning care was done. Noted BM. Cleaned Pt and applied lotion and cream. Iv site intact and no sign of infiltration noted. tolerated well with current J-tube feeding. Given suction. Changed position. V/S stable. No fever. Will continue to monitor any change of condition.
[2019-06-02 05:36] LABS: BASOPHILS % (AUTO) 0.8 % (0.0-2.0); EOSINOPHILS % (AUTO) 6.8 % (0.0-3.0); HEMATOCRIT 25.8 % (37.0-47.0); HEMOGLOBIN 8.6 G/DL (12.0-16.0); LYMPHOCYTES % (AUTO) 30.8 % (20.0-45.0); MEAN CORPUSCULAR VOLUME 88 FL (80-99); NEUTROPHILS % (AUTO) 56.5 % (45.0-75.0); PLATELET COUNT 312 K/UL (150-450); RED BLOOD COUNT 2.95 M/UL (4.20-5.40); RED CELL DISTRIBUTION WIDTH 14.3 % (11.6-14.8); WHITE BLOOD COUNT 9.6 K/UL (4.8-10.8)
--- NOTE | 2019-06-02 05:45 | Progress Note ---
DATE: 06/01/2019 CARDIOLOGY PROGRESS NOTE SUBJECTIVE: On trach collar. No respiratory distress. Monitored rhythm, sinus. Blood pressure parameters, stable. PHYSICAL EXAMINATION: LUNGS: With few rhonchi. CARDIAC: Regular rhythm and rate. Normal S1, S2. ABDOMEN: Soft. GJ tube intact. EXTREMITIES: No edema. LABORATORY DATA: No new laboratory studies. IMPRESSION: 1. Stable cardiovascular parameters. 2. Status post septic shock. 3. Chronic respiratory failure. 4. Hypomagnesemia, status post replacement. 5. Chronic diastolic congestive heart failure. 6. Hypertensive heart disease. PLAN OF CARE: 1. To recheck laboratories. 2. Continue medications. 3. Discharge planning. Bg Hagen M.D. DR: SHIRA JOB#: [id number] CC:
--- NOTE | 2019-06-02 06:00 | NUR ---
NURSE NOTES: Pt is sleeping on the bed and no sing of acute distress noted. Suction was done. Provided oral care. No sign of pain by FLACC scale. Stable V/S. Changed position. Dr. Beltrán visited and assessed Pt. Will continue to care plan.
[2019-06-02 06:05] LABS: ALANINE AMINOTRANSFERASE 38 U/L (12-78); ALBUMIN 2.7 G/DL (3.4-5.0); ALBUMIN/GLOBULIN RATIO 0.5 (1.0-2.7); ALKALINE PHOSPHATASE 137 U/L (46-116); ANION GAP 11 mmol/L (5-15); ASPARTATE AMINO TRANSFERASE 24 U/L (15-37); BILIRUBIN,TOTAL 0.1 MG/DL (0.2-1.0); BLOOD UREA NITROGEN 51 mg/dL (7-18); CALCIUM 9.4 MG/DL (8.5-10.1); CARBON DIOXIDE 27 MMOL/L (21-32); CHLORIDE 103 MMOL/L (98-107); CREATININE 0.9 MG/DL (0.55-1.30); PHOSPHORUS 4.3 MG/DL (2.5-4.9); POTASSIUM 4.9 MMOL/L (3.5-5.1); SODIUM 141 MMOL/L (136-145)
--- NOTE | 2019-06-02 07:12 | NUR ---
NURSE NOTES: Received report from JEANNINE Britt. Pt is observed laying in bed with eyes closed, obtunded. Pt is nonverbal; however, responds to physical stimuli. SR on security threat analyst. On T-piece; shiley XLT #6, 28% FiO2, O2 5L and SaO2 100% noted. J-tube to feeding running 1.2 @ 60cc/hr. G-tube to low intermittent suction, draining greenish color gastric contents. Pt is on a p200 mattress. IV site intact and no sign of infiltration noted. Purewick in place and draining well. Seizure precautions maintained. Bed locked and in lowest position with call light within reach. Will resume plan of care.
--- NOTE | 2019-06-02 07:17 | NUR ---
HAND-OFF: Report given to JEANNINE Haynes. Pt is resting on the bed and no sign of acute distress noted.
[2019-06-02] MEDS: levETIRAcetam 500mg/5ml Liquid NG SCH (08:14)
[2019-06-02] MEDS: Pantoprazole Inj IVP SCH (08:14)
[2019-06-02] MEDS: Magnesium Oxide 400mg tab GT SCH ×2 (08:14→13:03)
[2019-06-02] MEDS: Carvedilol 6.25mg Tab GT SCH (08:15)
[2019-06-02] MEDS: Heparin 5000 units/ml inj SUBQ SCH (08:15)
[2019-06-02] MEDS ORDERED: NS 275ml ONE ×2 (08:59→09:06)
[2019-06-02] MEDS ORDERED: Sterile Water Irrig 1000ml IRRIG ONE (09:06)
--- NOTE | 2019-06-02 09:09 | Pulmonology Progress Note ---
Assessment/Plan Assessment/Plan Impression: Fungemia KPC+ history of Pneumonia/ respiratory congestion Trach, G tube, Hypertension, Cardiac disease, Dementia, Previous CVA, Seizure disorder, Respiratory failure with hypoxia Anemia, Sacral ulcer renal cyst chronic pulmonary congestion Plan antifungals antimicrobials per ID continue to off load and optimze respiratory status monitor imaging for change and monitor secretions Vent PRN but DNR as per family monitor labs for change and recommend further elevate head and monitor secretions still unable to dispo at this time monitor vitals; and adjust meds; cards following; DNR. No CPR. ICU care reviewed meds noted and updated; neb therapy off load as able prognosis very poor nutrition/fees/ dietary as is; monitor residuals skin care management reviewed difficulty with placement all changes noted and discussed chronic management as able medications/laboratory data/nursing notes/ICU care reviewed in detail note reviewed and edited care discussed with RN and RT Subjective ROS Limited/Unobtainable: Yes Allergies: Coded Allergies: CODEINE (Verified Allergy, Unknown, HIVES, 09/15/09) Subjective overnight events noted; eyes open still with some congestion- RT care discussed on isolation; remains off vent for now Fungemia; noted KPC; being treated off vent ICU care issues discussed Objective Last 24 Hour Vital Signs Date Time Temp Pulse Resp B/P (MAP) Pulse Ox O2 Delivery O2 Flow Rate FiO2 06/02/19 09:00 75 21 126/27 (60) 100 75 06/02/19 08:16 80 06/02/19 08:15 76 122/42 06/02/19 08:00 5.0 28 06/02/19 08:00 98.8 76 19 122/32 (62) 100 76 06/02/19 08:00 T-piece 5.0 T-piece 5.0 T-piece 5.0 06/02/19 07:04 70 20 100 T-Piece 5.0 28 71 20 100 06/02/19 07:00 71 20 101/41 (61) 100 71 06/02/19 06:54 100 T-Piece 5.0 28 06/02/19 06:00 73 20 120/31 (60) 100 73 06/02/19 05:00 80 17 141/36 (71) 99 73 06/02/19 04:00 T-piece 5.0 T-piece 5.0 T-piece 5.0 06/02/19 04:00 76 06/02/19 04:00 5.0 28 06/02/19 04:00 98.2 73 21 109/28 (55) 100 73 06/02/19 03:23 71 20 100 T-Piece 5.0 28 74 19 100 06/02/19 03:00 78 23 126/29 (61) 100 78 06/02/19 02:00 79 21 114/30 (58) 100 79 06/02/19 01:19 100 T-Piece 5.0 28 06/02/19 01:00 81 23 130/38 (68) 100 81 06/02/19 00:00 98.6 76 19 133/34 (67) 100 76 06/02/19 00:00 5.0 28 06/02/19 00:00 T-piece 5.0 T-piece 5.0 T-piece 5.0 06/02/19 00:00 75 06/01/19 23:45 72 21 100 T-Piece 5.0 28 69 20 99 06/01/19 23:00 78 20 114/29 (57) 99 78 06/01/19 22:00 73 21 105/29 (54) 100 73 06/01/19 21:03 76 125/54 06/01/19 21:00 80 18 125/32 (63) 100 80 06/01/19 20:00 75 06/01/19 20:00 98.3 75 20 123/37 (65) 100 75 06/01/19 20:00 T-piece 5.0 T-piece 5.0 T-piece 5.0 06/01/19 20:00 5.0 28 06/01/19 19:46 100 T-Piece 5.0 28 06/01/19 19:46 76 19 100 T-Piece 5.0 28 73 21 100 06/01/19 19:00 75 22 116/40 (65) 100 75 06/01/19 19:00 75 22 116/40 (65) 100 06/01/19 18:00 78 22 123/33 (63) 99 78 06/01/19 17:00 74 20 128/33 (64) 100 74 06/01/19 16:00 T-piece 5.0 T-piece 5.0 T-piece 5.0 06/01/19 16:00 5.0 28 06/01/19 16:00 97.9 75 22 131/55 (80) 100 75 06/01/19 15:00 75 21 114/43 (66) 100 06/01/19 15:00 77 20 100 T-Piece 5.0 28 76 20 100 06/01/19 14:00 74 21 104/33 (56) 100 74 06/01/19 13:12 100 T-Piece 5.0 28 06/01/19 13:00 74 23 114/29 (57) 100 74 06/01/19 12:00 T-piece 5.0 T-piece 5.0 T-piece 5.0 06/01/19 12:00 5.0 28 06/01/19 12:00 97.7 80 23 146/52 (83) 100 80 06/01/19 11:52 75 06/01/19 11:00 73 21 124/27 (59) 100 73 06/01/19 10:42 74 21 100 T-Piece 5.0 28 72 22 100 06/01/19 10:00 73 20 116/49 (71) 100 73 Intake and Output 06/01/19 06/02/19 19:00 07:00 Intake Total 1530 ml 1470 ml Output Total 650 ml 800 ml Balance 880 ml 670 ml Free Water 300 ml 300 ml Tube Feeding 780 ml 720 ml Other 450 ml 450 ml Output Urine Total 500 ml 600 ml Gastric Drainage Total 150 ml 200 ml # Bowel Movements 1 2 Objective WDWN NAD on oxygen off vent reduced breath sounds bilaterally with some rhonchi but no wheezes [id number] without MRG NABS nontender no HSM no CC some edema contractures noted nonfocal nonverbal trach and gt reviewed and edited Laboratory Tests 06/02/19 04:30: White Blood Count 9.6, Red Blood Count 2.95L, Hemoglobin 8.6L, Hematocrit 25.8L , Mean Corpuscular Volume 88, Mean Corpuscular Hemoglobin 29.2, Mean Corpuscular Hemoglobin Concent 33.3, Red Cell Distribution Width 14.3, Platelet Count 312, Mean Platelet Volume 5.0L, Neutrophils (%) (Auto) 56.5, Lymphocytes ( %) (Auto) 30.8, Monocytes (%) (Auto) 5.0, Eosinophils (%) (Auto) 6.8H, Basophils (%) (Auto) 0.8, Sodium Level 141, Potassium Level 4.9, Chloride Level 103, Carbon Dioxide Level 27, Anion Gap 11, Blood Urea Nitrogen 51H, Creatinine 0.9, Estimat Glomerular Filtration Rate > 60, Glucose Level 112H, Calcium Level 9.4, Phosphorus Level 4.3, Magnesium Level 1.9, Total Bilirubin 0.1L, Aspartate Amino Transf (AST/SGOT) 24, Alanine Aminotransferase (ALT/SGPT) 38, Alkaline Phosphatase 137H, C-Reactive Protein, Quantitative 1.2H, Pro-B-Type Natriuretic Peptide 106, Total Protein 8.2, Albumin 2.7L, Globulin 5.5, Albumin/Globulin Ratio 0.5L Current Medications Medications (Trade) Dose Ordered Sig/Maicol Route PRN Reason Start Time Stop Time Status Last Admin Dose Admin Acetaminophen (Tylenol) 650 mg Q4H PRN RECTAL T>100.5 / Mild Pain 05/07/19 09:45 06/06/19 09:44 05/07/19 10:13 Albuterol/ Ipratropium (Albuterol/ Ipratropium) 3 ml Q4HRT HHN 06/01/19 11:00 06/06/19 10:59 06/02/19 06:54 Atropine Sulfate (Atropine Opth Adriana) 1 drop Q6HR SL 05/11/19 00:00 06/10/19 08:59 06/02/19 06:00 Carvedilol (Coreg) 6.25 mg EVERY 12 HOURS GT 05/23/19 21:00 06/22/19 20:59 06/02/19 08:15 Heparin Sodium (Porcine) (Heparin 5000 units/ml) 5,000 units EVERY 12 HOURS SUBQ 05/31/19 21:15 06/30/19 21:14 06/02/19 08:15 Hydralazine HCl (Apresoline) 10 mg Q4H PRN IV For High Blood Pressure 05/11/19 05:45 06/10/19 05:44 05/12/19 00:08 Levetiracetam (Keppra) 500 mg Q12HR NG 06/01/19 09:00 07/01/19 08:59 06/02/19 08:14 Magnesium Oxide (Mag-Ox 400mg) 400 mg THREE TIMES A DAY GT 05/31/19 09:00 06/23/19 12:59 06/02/19 08:14 Pantoprazole (Protonix) 40 mg DAILY IVP 05/15/19 18:15 06/14/19 18:14 06/02/19 08:14 Amaury Chan MD Jun 02, 2019 09:09
--- NOTE | 2019-06-02 09:54 | NUR ---
NURSE NOTES: Dr Cortez at bedside assessing pt. Updated him on pt's current condition. No new orders at this time. No distress noted.
--- NOTE | 2019-06-02 10:39 | Infectious Diseases Prog Note ---
"Assessment/Plan Assessment/Plan antibiotics :none A 1. delano parapsilosis fungemia s/p rx 2. klebsiella sepsis s/p rx 3. respiratory failure 4. hypertension 5. CVA 6. dementia 7. rectal VRE colonization 8. leucocytosis resolved 9. pseudomonas | providencia pneumonia s/p rx P 1. continue off antibiotics Subjective ROS Limited/Unobtainable: Yes Allergies: Coded Allergies: CODEINE (Verified Allergy, Unknown, HIVES, 09/15/09) Objective Vital Signs Last 24 Hour Vital Signs Date Time Temp Pulse Resp B/P (MAP) Pulse Ox O2 Delivery O2 Flow Rate FiO2 06/02/19 10:10 76 20 125/32 (63) 100 75 06/02/19 10:00 75 21 91/24 (46) 100 75 06/02/19 09:00 75 21 126/27 (60) 100 75 06/02/19 08:16 80 06/02/19 08:15 76 122/42 06/02/19 08:00 5.0 28 06/02/19 08:00 98.8 76 19 122/32 (62) 100 76 06/02/19 08:00 T-piece 5.0 T-piece 5.0 T-piece 5.0 06/02/19 07:04 70 20 100 T-Piece 5.0 28 71 20 100 06/02/19 07:00 71 20 101/41 (61) 100 71 06/02/19 06:54 100 T-Piece 5.0 28 06/02/19 06:00 73 20 120/31 (60) 100 73 06/02/19 05:00 80 17 141/36 (71) 99 73 06/02/19 04:00 T-piece 5.0 T-piece 5.0 T-piece 5.0 06/02/19 04:00 76 06/02/19 04:00 5.0 28 06/02/19 04:00 98.2 73 21 109/28 (55) 100 73 06/02/19 03:23 71 20 100 T-Piece 5.0 28 74 19 100 06/02/19 03:00 78 23 126/29 (61) 100 78 06/02/19 02:00 79 21 114/30 (58) 100 79 06/02/19 01:19 100 T-Piece 5.0 28 06/02/19 01:00 81 23 130/38 (68) 100 81 06/02/19 00:00 98.6 76 19 133/34 (67) 100 76 06/02/19 00:00 5.0 28 06/02/19 00:00 T-piece 5.0 T-piece 5.0 T-piece 5.0 06/02/19 00:00 75 06/01/19 23:45 72 21 100 T-Piece 5.0 28 69 20 99 06/01/19 23:00 78 20 114/29 (57) 99 78 06/01/19 22:00 73 21 105/29 (54) 100 73 06/01/19 21:03 76 125/54 06/01/19 21:00 80 18 125/32 (63) 100 80 06/01/19 20:00 75 06/01/19 20:00 98.3 75 20 123/37 (65) 100 75 06/01/19 20:00 T-piece 5.0 T-piece 5.0 T-piece 5.0 06/01/19 20:00 5.0 28 06/01/19 19:46 100 T-Piece 5.0 28 06/01/19 19:46 76 19 100 T-Piece 5.0 28 73 21 100 06/01/19 19:00 75 22 116/40 (65) 100 75 06/01/19 19:00 75 22 116/40 (65) 100 06/01/19 18:00 78 22 123/33 (63) 99 78 06/01/19 17:00 74 20 128/33 (64) 100 74 06/01/19 16:00 T-piece 5.0 T-piece 5.0 T-piece 5.0 06/01/19 16:00 5.0 28 06/01/19 16:00 97.9 75 22 131/55 (80) 100 75 06/01/19 15:00 75 21 114/43 (66) 100 06/01/19 15:00 77 20 100 T-Piece 5.0 28 76 20 100 06/01/19 14:00 74 21 104/33 (56) 100 74 06/01/19 13:12 100 T-Piece 5.0 28 06/01/19 13:00 74 23 114/29 (57) 100 74 06/01/19 12:00 T-piece 5.0 T-piece 5.0 T-piece 5.0 06/01/19 12:00 5.0 28 06/01/19 12:00 97.7 80 23 146/52 (83) 100 80 06/01/19 11:52 75 06/01/19 11:00 73 21 124/27 (59) 100 73 06/01/19 10:42 74 21 100 T-Piece 5.0 28 72 22 100 Height (Feet): 5 Height (Inches): 3.00 Weight (Pounds): 133 HEENT: status post trach Respiratory/Chest: lungs clear Cardiovascular: normal rate, regular rhythm, no gallop/murmur Abdomen: soft, non tender, other - GT Extremities: no edema Laboratory Tests Test 06/02/19 04:30 White Blood Count 9.6 K/UL (4.8-10.8) Red Blood Count 2.95 M/UL (4.20-5.40) L Hemoglobin 8.6 G/DL (12.0-16.0) L Hematocrit 25.8 % (37.0-47.0) L Mean Corpuscular Volume 88 FL (80-99) Mean Corpuscular Hemoglobin 29.2 PG (27.0-31.0) Mean Corpuscular Hemoglobin Concent 33.3 G/DL (32.0-36.0) Red Cell Distribution Width 14.3 % (11.6-14.8) Platelet Count 312 K/UL (150-450) Mean Platelet Volume 5.0 FL (6.5-10.1) L Neutrophils (%) (Auto) 56.5 % (45.0-75.0) Lymphocytes (%) (Auto) 30.8 % (20.0-45.0) Monocytes (%) (Auto) 5.0 % (1.0-10.0) Eosinophils (%) (Auto) 6.8 % (0.0-3.0) H Basophils (%) (Auto) 0.8 % (0.0-2.0) Sodium Level 141 MMOL/L (136-145) Potassium Level 4.9 MMOL/L (3.5-5.1) Chloride Level 103 MMOL/L (98-107) Carbon Dioxide Level 27 MMOL/L (21-32) Anion Gap 11 mmol/L (5-15) Blood Urea Nitrogen 51 mg/dL (7-18) H Creatinine 0.9 MG/DL (0.55-1.30) Estimat Glomerular Filtration Rate > 60 mL/min (>60) Glucose Level 112 MG/DL (74-106) H Calcium Level 9.4 MG/DL (8.5-10.1) Phosphorus Level 4.3 MG/DL (2.5-4.9) Magnesium Level 1.9 MG/DL (1.8-2.4) Total Bilirubin 0.1 MG/DL (0.2-1.0) L Aspartate Amino Transf (AST/SGOT) 24 U/L (15-37) Alanine Aminotransferase (ALT/SGPT) 38 U/L (12-78) Alkaline Phosphatase 137 U/L (46-116) H C-Reactive Protein, Quantitative 1.2 mg/dL (0.00-0.90) H Pro-B-Type Natriuretic Peptide 106 pg/mL (0-125) Total Protein 8.2 G/DL (6.4-8.2) Albumin 2.7 G/DL (3.4-5.0) L Globulin 5.5 g/dL Albumin/Globulin Ratio 0.5 (1.0-2.7) L Current Medications Medications (Trade) Dose Ordered Sig/Maicol Route PRN Reason Start Time Stop Time Status Last Admin Dose Admin Acetaminophen (Tylenol) 650 mg Q4H PRN RECTAL T>100.5 / Mild Pain 05/07/19 09:45 06/06/19 09:44 05/07/19 10:13 Albuterol/ Ipratropium (Albuterol/ Ipratropium) 3 ml Q4HRT HHN 06/01/19 11:00 06/06/19 10:59 06/02/19 10:23 Atropine Sulfate (Atropine Opth Adriana) 1 drop Q6HR SL 05/11/19 00:00 06/10/19 08:59 06/02/19 06:00 Carvedilol (Coreg) 6.25 mg EVERY 12 HOURS GT 05/23/19 21:00 06/22/19 20:59 06/02/19 08:15 Heparin Sodium (Porcine) (Heparin 5000 units/ml) 5,000 units EVERY 12 HOURS SUBQ 05/31/19 21:15 06/30/19 21:14 06/02/19 08:15 Hydralazine HCl (Apresoline) 10 mg Q4H PRN IV For High Blood Pressure 05/11/19 05:45 06/10/19 05:44 05/12/19 00:08 Levetiracetam (Keppra) 500 mg Q12HR NG 06/01/19 09:00 07/01/19 08:59 06/02/19 08:14 Magnesium Oxide (Mag-Ox 400mg) 400 mg THREE TIMES A DAY GT 05/31/19 09:00 06/23/19 12:59 06/02/19 08:14 Pantoprazole (Protonix) 40 mg DAILY IVP 05/15/19 18:15 06/14/19 18:14 06/02/19 08:14 Geovany Yang MD Jun 02, 2019 10:39"
--- NOTE | 2019-06-02 12:00 | NUR ---
NURSE NOTES: Pt is observed sleeping in bed. No signs of acute distress noted. Tracheal and oral suction was done. Repositioned. Will continue to monitor for changes in condition.
--- NOTE | 2019-06-02 14:00 | NUR ---
NURSE NOTES: Oral care and suctioning was done. Pt tolerating tube feeds well via J Tube. Changed position. No distress noted.
--- NOTE | 2019-06-02 14:14 | Nephrology Progress Note ---
Assessment/Plan Problem List: (1) Acute renal failure (ARF) Assessment: Cr stable (2) Chronic respiratory failure (3) Anemia (4) Sepsis Assessment Acute renal failure Respiratory failure - Trach Low Mag- Low k , Low Na Anemia UTI / Sepsis Proteinuria / HypoAlbuminemia high Trigs Sz decubs bed bound DNR Plan on Coreg now discussed with Dr Beltrán Transfused 05/09 has JT bolus Albumin as needed K and Mag and Phos supplement as needed Hydrate as needed Urine studies avoid Nephrotoxics mag K Phos supplements as needed monitor renal parameters Subjective ROS Limited/Unobtainable: Yes Objective Objective Last 24 Hour Vital Signs Date Time Temp Pulse Resp B/P (MAP) Pulse Ox O2 Delivery O2 Flow Rate FiO2 06/02/19 14:00 85 24 96/31 (52) 99 85 06/02/19 13:00 82 23 122/37 (65) 100 82 06/02/19 12:44 97 T-Piece 5.0 28 06/02/19 12:00 98.8 79 22 126/29 (61) 100 79 06/02/19 12:00 81 06/02/19 12:00 5.0 28 06/02/19 12:00 T-piece 5.0 T-piece 5.0 T-piece 5.0 06/02/19 11:00 79 20 135/34 (67) 100 79 06/02/19 10:33 76 20 100 T-Piece 5.0 28 73 18 100 06/02/19 10:10 76 20 125/32 (63) 100 75 06/02/19 10:00 75 21 91/24 (46) 100 75 06/02/19 09:00 75 21 126/27 (60) 100 75 06/02/19 08:16 80 06/02/19 08:15 76 122/42 06/02/19 08:00 5.0 28 06/02/19 08:00 98.8 76 19 122/32 (62) 100 76 06/02/19 08:00 T-piece 5.0 T-piece 5.0 T-piece 5.0 06/02/19 07:04 70 20 100 T-Piece 5.0 28 71 20 100 06/02/19 07:00 71 20 101/41 (61) 100 71 06/02/19 06:54 100 T-Piece 5.0 28 06/02/19 06:00 73 20 120/31 (60) 100 73 06/02/19 05:00 80 17 141/36 (71) 99 73 06/02/19 04:00 T-piece 5.0 T-piece 5.0 T-piece 5.0 06/02/19 04:00 76 06/02/19 04:00 5.0 28 06/02/19 04:00 98.2 73 21 109/28 (55) 100 73 06/02/19 03:23 71 20 100 T-Piece 5.0 28 74 19 100 06/02/19 03:00 78 23 126/29 (61) 100 78 06/02/19 02:00 79 21 114/30 (58) 100 79 06/02/19 01:19 100 T-Piece 5.0 28 06/02/19 01:00 81 23 130/38 (68) 100 81 06/02/19 00:00 98.6 76 19 133/34 (67) 100 76 06/02/19 00:00 5.0 28 06/02/19 00:00 T-piece 5.0 T-piece 5.0 T-piece 5.0 06/02/19 00:00 75 06/01/19 23:45 72 21 100 T-Piece 5.0 28 69 20 99 06/01/19 23:00 78 20 114/29 (57) 99 78 06/01/19 22:00 73 21 105/29 (54) 100 73 06/01/19 21:03 76 125/54 06/01/19 21:00 80 18 125/32 (63) 100 80 06/01/19 20:00 75 06/01/19 20:00 98.3 75 20 123/37 (65) 100 75 06/01/19 20:00 T-piece 5.0 T-piece 5.0 T-piece 5.0 06/01/19 20:00 5.0 28 06/01/19 19:46 100 T-Piece 5.0 28 06/01/19 19:46 76 19 100 T-Piece 5.0 28 73 21 100 06/01/19 19:00 75 22 116/40 (65) 100 75 06/01/19 19:00 75 22 116/40 (65) 100 06/01/19 18:00 78 22 123/33 (63) 99 78 06/01/19 17:00 74 20 128/33 (64) 100 74 06/01/19 16:00 T-piece 5.0 T-piece 5.0 T-piece 5.0 06/01/19 16:00 5.0 28 06/01/19 16:00 97.9 75 22 131/55 (80) 100 75 06/01/19 15:00 75 21 114/43 (66) 100 06/01/19 15:00 77 20 100 T-Piece 5.0 28 76 20 100 Intake and Output 06/01/19 06/02/19 19:00 07:00 Intake Total 1530 ml 1470 ml Output Total 650 ml 800 ml Balance 880 ml 670 ml Free Water 300 ml 300 ml Tube Feeding 780 ml 720 ml Other 450 ml 450 ml Output Urine Total 500 ml 600 ml Gastric Drainage Total 150 ml 200 ml # Bowel Movements 1 2 Laboratory Tests 06/02/19 04:30: White Blood Count 9.6, Red Blood Count 2.95L, Hemoglobin 8.6L, Hematocrit 25.8L , Mean Corpuscular Volume 88, Mean Corpuscular Hemoglobin 29.2, Mean Corpuscular Hemoglobin Concent 33.3, Red Cell Distribution Width 14.3, Platelet Count 312, Mean Platelet Volume 5.0L, Neutrophils (%) (Auto) 56.5, Lymphocytes ( %) (Auto) 30.8, Monocytes (%) (Auto) 5.0, Eosinophils (%) (Auto) 6.8H, Basophils (%) (Auto) 0.8, Sodium Level 141, Potassium Level 4.9, Chloride Level 103, Carbon Dioxide Level 27, Anion Gap 11, Blood Urea Nitrogen 51H, Creatinine 0.9, Estimat Glomerular Filtration Rate > 60, Glucose Level 112H, Calcium Level 9.4, Phosphorus Level 4.3, Magnesium Level 1.9, Total Bilirubin 0.1L, Aspartate Amino Transf (AST/SGOT) 24, Alanine Aminotransferase (ALT/SGPT) 38, Alkaline Phosphatase 137H, C-Reactive Protein, Quantitative 1.2H, Pro-B-Type Natriuretic Peptide 106, Total Protein 8.2, Albumin 2.7L, Globulin 5.5, Albumin/Globulin Ratio 0.5L Height (Feet): 5 Height (Inches): 3.00 Weight (Pounds): 133 General Appearance: no apparent distress Neck: other - trach Cardiovascular: normal rate Respiratory/Chest: decreased breath sounds Abdomen: soft Objective no change Eric Cortez MD Jun 02, 2019 14:14
--- NOTE | 2019-06-02 15:05 | NUR ---
RD ASSESSMENT & RECOMMENDATIONS SEE CARE ACTIVITY FOR COMPLETE ASSESSMENT DAILY ESTIMATED NEEDS: Needs based on Pulmonary, wounds, bedbound/ 61kg adj 25-30 kcals/kg 0465-0053 total kcals 1.25-2 g protein/kg 76-122 g total protein 25-30 mL/kg [id number] total fluid mLs NUTRITION DIAGNOSIS: * Increased kcal/prot needs R/T wound healing as evidenced by BL buttocks and sacral wound photos, refer to WC eval-> wounds resolving, sacrum healed. * Swallowing difficulty R/T respiratory status as evidenced by pt on T-collar, s/p G-J conversion Good BG control. CURRENT TF:Vital AF 1.2 @ 60ml/hr x 24 hrs ENTERAL NUTRITION RECOMMENDATIONS: VITAL AF 1.2 @ 60ml/hr x 24 hrs to provide 1440ml, 1728kcal, 108g prot, 1167ml free water - Maintain current TF as tolerated-> meets 100% est needs - HOB over 30 degrees - Rec to increase water flushes ADDITIONAL RECOMMENDATIONS: 1) Maintain calibrated bedscale wt: fluctuating daily wts 2) Wound healing: maintain Cristian BID for skin integrity -> Vit C 250 mg daily 3) Monitor for continued good TF tolerance 4) Monitor hydration status (elev BUN) -> current flush order for 1500ml free H2O daily 5) Monitor BGs, need for NISS- now w/ improved BGs.
--- NOTE | 2019-06-02 15:10 | NUR ---
*-* DISCHARGE PLANNED *-* PATIENT HAS BEEN ACCEPTED TO: [facility] [id number] SKILLED T: [phone] FOR NURSE TO NURSE REPORT [facility] HAS BEEN ARRANGED FOR [facility] AT 4PM S/W SIVA.
--- NOTE | 2019-06-02 15:21 | NUR ---
INSURANCE [employer] SPECIALIST NOTES SPOKE WITH DANIEL FROM [facility], PT NOT ACCEPTED. MD AND FAMILY MADE AWARE.
--- NOTE | 2019-06-02 15:21 | General Progress Note ---
Assessment/Plan Problem List: (1) Seizure ICD Codes: R56.9 - Unspecified convulsions SNOMED: 72293072 (2) Anemia ICD Codes: D64.9 - Anemia, unspecified SNOMED: 664830091 Qualifiers: Qualified Codes: D64.9 - Anemia, unspecified (3) Sepsis ICD Codes: A41.9 - Sepsis, unspecified organism SNOMED: 27913838, 221198486 Qualifiers: Qualified Codes: A41.9 - Sepsis, unspecified organism (4) Respiratory failure with hypoxia ICD Codes: J96.91 - Respiratory failure, unspecified with hypoxia SNOMED: 99898167973977626 Qualifiers: Qualified Codes: J96.21 - Acute and chronic respiratory failure with hypoxia (5) HCAP (healthcare-associated pneumonia) ICD Codes: J18.9 - Pneumonia, unspecified organism SNOMED: 224773210, 914289896 (6) Sacral decubitus ulcer ICD Codes: L89.159 - Pressure ulcer of sacral region, unspecified stage SNOMED: 663414820 (7) HTN (hypertension) ICD Codes: I10 - Essential (primary) hypertension SNOMED: 10542149 (8) Chronic vegetative state ICD Codes: R40.3 - Persistent vegetative state SNOMED: 61971284 (9) Chronic respiratory failure ICD Codes: J96.10 - Chronic respiratory failure, unspecified whether with hypoxia or hypercapnia SNOMED: 86137266 (10) Limited mobility ICD Codes: Z74.09 - Other reduced mobility SNOMED: 7686253 Status: stable, progressing Assessment/Plan: monitor off abx monitor for bleeding vent as needed resp rx suctioning monitor lytes j tube feeds g port to gravity skin care sz rx bowel regime monitor lfts stable for dc to lower level. d.w dtr- she still prefers [facility] or [facility] she agrees to [facility] if bed available there Subjective ROS Limited/Unobtainable: Yes Constitutional: Reports: malaise, weakness HEENT: Reports: no symptoms Cardiovascular: Reports: no symptoms Respiratory: Reports: cough, shortness of breath Gastrointestinal/Abdominal: Reports: difficulty swallowing Genitourinary: Reports: no symptoms Neurologic/Psychiatric: Reports: pre-existing deficit, seizure Endocrine: Reports: no symptoms Hematologic/Lymphatic: Reports: anemia Allergies: Coded Allergies: CODEINE (Verified Allergy, Unknown, HIVES, 09/15/09) All Systems: reviewed and negative except above Subjective no events. stable on the vent. no fevers or chills. nol congestion. no szs, tolerating feeds. d.w staff. no new concerns Objective Last 24 Hour Vital Signs Date Time Temp Pulse Resp B/P (MAP) Pulse Ox O2 Delivery O2 Flow Rate FiO2 06/02/19 14:55 85 21 100 T-Piece 5.0 28 85 19 100 06/02/19 14:00 85 24 96/31 (52) 99 85 06/02/19 13:00 82 23 122/37 (65) 100 82 06/02/19 12:44 97 T-Piece 5.0 28 06/02/19 12:00 98.8 79 22 126/29 (61) 100 79 06/02/19 12:00 81 06/02/19 12:00 5.0 28 06/02/19 12:00 T-piece 5.0 T-piece 5.0 T-piece 5.0 06/02/19 11:00 79 20 135/34 (67) 100 79 06/02/19 10:33 76 20 100 T-Piece 5.0 28 73 18 100 06/02/19 10:10 76 20 125/32 (63) 100 75 06/02/19 10:00 75 21 91/24 (46) 100 75 06/02/19 09:00 75 21 126/27 (60) 100 75 06/02/19 08:16 80 06/02/19 08:15 76 122/42 06/02/19 08:00 5.0 28 06/02/19 08:00 98.8 76 19 122/32 (62) 100 76 06/02/19 08:00 T-piece 5.0 T-piece 5.0 T-piece 5.0 06/02/19 07:04 70 20 100 T-Piece 5.0 28 71 20 100 06/02/19 07:00 71 20 101/41 (61) 100 71 06/02/19 06:54 100 T-Piece 5.0 28 06/02/19 06:00 73 20 120/31 (60) 100 73 06/02/19 05:00 80 17 141/36 (71) 99 73 06/02/19 04:00 T-piece 5.0 T-piece 5.0 T-piece 5.0 06/02/19 04:00 76 06/02/19 04:00 5.0 28 06/02/19 04:00 98.2 73 21 109/28 (55) 100 73 06/02/19 03:23 71 20 100 T-Piece 5.0 28 74 19 100 06/02/19 03:00 78 23 126/29 (61) 100 78 06/02/19 02:00 79 21 114/30 (58) 100 79 06/02/19 01:19 100 T-Piece 5.0 28 06/02/19 01:00 81 23 130/38 (68) 100 81 06/02/19 00:00 98.6 76 19 133/34 (67) 100 76 06/02/19 00:00 5.0 28 06/02/19 00:00 T-piece 5.0 T-piece 5.0 T-piece 5.0 06/02/19 00:00 75 06/01/19 23:45 72 21 100 T-Piece 5.0 28 69 20 99 06/01/19 23:00 78 20 114/29 (57) 99 78 06/01/19 22:00 73 21 105/29 (54) 100 73 06/01/19 21:03 76 125/54 06/01/19 21:00 80 18 125/32 (63) 100 80 06/01/19 20:00 75 06/01/19 20:00 98.3 75 20 123/37 (65) 100 75 06/01/19 20:00 T-piece 5.0 T-piece 5.0 T-piece 5.0 06/01/19 20:00 5.0 28 06/01/19 19:46 100 T-Piece 5.0 28 06/01/19 19:46 76 19 100 T-Piece 5.0 28 73 21 100 06/01/19 19:00 75 22 116/40 (65) 100 75 06/01/19 19:00 75 22 116/40 (65) 100 06/01/19 18:00 78 22 123/33 (63) 99 78 06/01/19 17:00 74 20 128/33 (64) 100 74 06/01/19 16:00 T-piece 5.0 T-piece 5.0 T-piece 5.0 06/01/19 16:00 5.0 28 06/01/19 16:00 97.9 75 22 131/55 (80) 100 75 Intake and Output 06/01/19 06/02/19 19:00 07:00 Intake Total 1530 ml 1470 ml Output Total 650 ml 800 ml Balance 880 ml 670 ml Free Water 300 ml 300 ml Tube Feeding 780 ml 720 ml Other 450 ml 450 ml Output Urine Total 500 ml 600 ml Gastric Drainage Total 150 ml 200 ml # Bowel Movements 1 2 Laboratory Tests 06/02/19 04:30: White Blood Count 9.6, Red Blood Count 2.95L, Hemoglobin 8.6L, Hematocrit 25.8L , Mean Corpuscular Volume 88, Mean Corpuscular Hemoglobin 29.2, Mean Corpuscular Hemoglobin Concent 33.3, Red Cell Distribution Width 14.3, Platelet Count 312, Mean Platelet Volume 5.0L, Neutrophils (%) (Auto) 56.5, Lymphocytes ( %) (Auto) 30.8, Monocytes (%) (Auto) 5.0, Eosinophils (%) (Auto) 6.8H, Basophils (%) (Auto) 0.8, Sodium Level 141, Potassium Level 4.9, Chloride Level 103, Carbon Dioxide Level 27, Anion Gap 11, Blood Urea Nitrogen 51H, Creatinine 0.9, Estimat Glomerular Filtration Rate > 60, Glucose Level 112H, Calcium Level 9.4, Phosphorus Level 4.3, Magnesium Level 1.9, Total Bilirubin 0.1L, Aspartate Amino Transf (AST/SGOT) 24, Alanine Aminotransferase (ALT/SGPT) 38, Alkaline Phosphatase 137H, C-Reactive Protein, Quantitative 1.2H, Pro-B-Type Natriuretic Peptide 106, Total Protein 8.2, Albumin 2.7L, Globulin 5.5, Albumin/Globulin Ratio 0.5L Height (Feet): 5 Height (Inches): 3.00 Weight (Pounds): 133 Objective General Appearance: WD/WN, confused. on trach collar Neck: supple Cardiovascular: normal rate, regular rhythm Respiratory/Chest: chest wall non-tender, rhonchi - bilaterally(minimal) Abdomen: normal bowel sounds, non tender, soft, no organomegaly Edema: no edema noted Arm (L), no edema noted Arm (R), no edema noted Leg (L), no edema noted Leg (R), no edema noted Pedal (L), no edema noted Pedal (R), no edema noted Generalized Neurologic: disoriented, unresponsive, aphasia Irvin Beltrán MD Jun 02, 2019 15:21
--- NOTE | 2019-06-02 15:45 | NUR ---
NURSE NOTES: Pt fully cleaned and wound pictures taken and uploaded. Pt repositioned. Oral care and suctioning done.
--- NOTE | 2019-06-02 16:00 | NUR ---
NURSE NOTES: PT SCHEDULED FOR DISCHARGE, TO BE PICKED UP BY [facility] AT 1600. GAVE REPORT TO VIC AT [facility], ROOM# 335, @ T: [phone].
--- NOTE | 2019-06-02 16:10 | NUR ---
NURSE NOTES: Spoke to JEANNINE Riggins who informed me that [facility]ANT[facility]yson[facility], left several messages for pt's daughter Chika to let her know pt will be transferred.
--- NOTE | 2019-06-02 17:10 | NUR ---
NURSE NOTES: Pt picked up by [facility]. Gave report to
--- NOTE | 2019-06-02 17:38 | General Progress Note ---
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 - Anemia with OB (-) stools - Resp failure, s/p Trach - OBS, vegetative obtunded unresponsive state, bedbound with contracted extremities - h/o minor GJ tube site irritation - poor Prognosis Recommendations - No plans for immune suppression (risk benefit ratio in favor of holding off Rx ) - PPI daily - Cristian BID - antibiotic ointment to GJT site PRN - aspiration precautions - elevate HOB - Vital AF 1.2 - J tube feeds and G tube ---> LIS Subjective Allergies: Coded Allergies: CODEINE (Verified Allergy, Unknown, HIVES, 09/15/09) Subjective above noted d/w RN tolerating TF Objective Last 24 Hour Vital Signs Date Time Temp Pulse Resp B/P (MAP) Pulse Ox O2 Delivery O2 Flow Rate FiO2 06/02/19 17:00 93 27 122/48 (72) 100 93 06/02/19 16:00 5.0 28 06/02/19 16:00 98.8 88 25 115/44 (67) 98 88 06/02/19 16:00 T-piece 5.0 T-piece 5.0 T-piece 5.0 06/02/19 15:43 87 06/02/19 15:00 91 24 118/35 (62) 100 91 06/02/19 14:55 85 21 100 T-Piece 5.0 28 85 19 100 06/02/19 14:00 85 24 96/31 (52) 99 85 06/02/19 13:00 82 23 122/37 (65) 100 82 06/02/19 12:44 97 T-Piece 5.0 28 06/02/19 12:00 98.8 79 22 126/29 (61) 100 79 06/02/19 12:00 81 06/02/19 12:00 5.0 28 06/02/19 12:00 T-piece 5.0 T-piece 5.0 T-piece 5.0 06/02/19 11:00 79 20 135/34 (67) 100 79 06/02/19 10:33 76 20 100 T-Piece 5.0 28 73 18 100 06/02/19 10:10 76 20 125/32 (63) 100 75 06/02/19 10:00 75 21 91/24 (46) 100 75 06/02/19 09:00 75 21 126/27 (60) 100 75 06/02/19 08:16 80 06/02/19 08:15 76 122/42 06/02/19 08:00 5.0 28 06/02/19 08:00 98.8 76 19 122/32 (62) 100 76 06/02/19 08:00 T-piece 5.0 T-piece 5.0 T-piece 5.0 06/02/19 07:04 70 20 100 T-Piece 5.0 28 71 20 100 06/02/19 07:00 71 20 101/41 (61) 100 71 06/02/19 06:54 100 T-Piece 5.0 28 06/02/19 06:00 73 20 120/31 (60) 100 73 06/02/19 05:00 80 17 141/36 (71) 99 73 06/02/19 04:00 T-piece 5.0 T-piece 5.0 T-piece 5.0 06/02/19 04:00 76 06/02/19 04:00 5.0 28 06/02/19 04:00 98.2 73 21 109/28 (55) 100 73 06/02/19 03:23 71 20 100 T-Piece 5.0 28 74 19 100 06/02/19 03:00 78 23 126/29 (61) 100 78 06/02/19 02:00 79 21 114/30 (58) 100 79 06/02/19 01:19 100 T-Piece 5.0 28 06/02/19 01:00 81 23 130/38 (68) 100 81 06/02/19 00:00 98.6 76 19 133/34 (67) 100 76 06/02/19 00:00 5.0 28 06/02/19 00:00 T-piece 5.0 T-piece 5.0 T-piece 5.0 06/02/19 00:00 75 06/01/19 23:45 72 21 100 T-Piece 5.0 28 69 20 99 06/01/19 23:00 78 20 114/29 (57) 99 78 06/01/19 22:00 73 21 105/29 (54) 100 73 06/01/19 21:03 76 125/54 06/01/19 21:00 80 18 125/32 (63) 100 80 06/01/19 20:00 75 06/01/19 20:00 98.3 75 20 123/37 (65) 100 75 06/01/19 20:00 T-piece 5.0 T-piece 5.0 T-piece 5.0 06/01/19 20:00 5.0 28 06/01/19 19:46 100 T-Piece 5.0 28 06/01/19 19:46 76 19 100 T-Piece 5.0 28 73 21 100 06/01/19 19:00 75 22 116/40 (65) 100 75 06/01/19 19:00 75 22 116/40 (65) 100 06/01/19 18:00 78 22 123/33 (63) 99 78 Intake and Output 06/01/19 06/02/19 19:00 07:00 Intake Total 1530 ml 1470 ml Output Total 650 ml 800 ml Balance 880 ml 670 ml Free Water 300 ml 300 ml Tube Feeding 780 ml 720 ml Other 450 ml 450 ml Output Urine Total 500 ml 600 ml Gastric Drainage Total 150 ml 200 ml # Bowel Movements 1 2 Laboratory Tests 06/02/19 04:30: White Blood Count 9.6, Red Blood Count 2.95L, Hemoglobin 8.6L, Hematocrit 25.8L , Mean Corpuscular Volume 88, Mean Corpuscular Hemoglobin 29.2, Mean Corpuscular Hemoglobin Concent 33.3, Red Cell Distribution Width 14.3, Platelet Count 312, Mean Platelet Volume 5.0L, Neutrophils (%) (Auto) 56.5, Lymphocytes ( %) (Auto) 30.8, Monocytes (%) (Auto) 5.0, Eosinophils (%) (Auto) 6.8H, Basophils (%) (Auto) 0.8, Sodium Level 141, Potassium Level 4.9, Chloride Level 103, Carbon Dioxide Level 27, Anion Gap 11, Blood Urea Nitrogen 51H, Creatinine 0.9, Estimat Glomerular Filtration Rate > 60, Glucose Level 112H, Calcium Level 9.4, Phosphorus Level 4.3, Magnesium Level 1.9, Total Bilirubin 0.1L, Aspartate Amino Transf (AST/SGOT) 24, Alanine Aminotransferase (ALT/SGPT) 38, Alkaline Phosphatase 137H, C-Reactive Protein, Quantitative 1.2H, Pro-B-Type Natriuretic Peptide 106, Total Protein 8.2, Albumin 2.7L, Globulin 5.5, Albumin/Globulin Ratio 0.5L Height (Feet): 5 Height (Inches): 3.00 Weight (Pounds): 133 Objective Debilitated AA woman non-verbal, obtunded NCAT (+) trach coarse BS RR obese abd, (+) GJT no edema (+) contractured extremities Celio Vaughan MD Jun 02, 2019 17:38
--- NOTE | 2019-06-03 04:45 | Progress Note ---
DATE: 06/02/2019 CARDIOLOGY PROGRESS NOTE SUBJECTIVE: The patient's condition largely unchanged. Remains with sinus rhythm. Blood pressure parameters stable. On trach collar with no respiratory distress. Tolerating nutrition by GJ tube . PHYSICAL EXAMINATION: Unchanged. LABORATORY DATA: Labs reviewed with white count 9.6, hemoglobin 8.6, and platelets 312,000. Sodium 141, potassium 4.9, bicarbonate 27, BUN 51, and creatinine 0.9. IMPRESSION: Increasing renal , otherwise unchanged. PLAN: 1. Await subacute bed. 2. Increase free water replacement. 3. Continue cardiovascular regimen otherwise without change. Bg Hagen M.D. DR: PIYUSH JOB#: [id number] CC:
--- NOTE | 2019-06-09 16:00 | Discharge Summary ---
DATE OF ADMISSION: 01/23/2019 DATE OF DISCHARGE: 06/02/2019 ADMISSION DIAGNOSES: 1. Respiratory failure. 2. Sepsis. 3. Pneumonia. 4. Seizure disorder. 5. Functional quadriplegia. 6. Dysphagia. 7. Anoxic encephalopathy. 8. Prior stroke. DISCHARGE DIAGNOSES: 1. Respiratory failure. 2. Sepsis. 3. Pneumonia. 4. Seizure disorder. 5. Functional quadriplegia. 6. Dysphagia. 7. Anoxic encephalopathy. 8. Prior stroke. HOSPITAL COURSE: The patient is an unfortunate 83-year-old female with a history of chronic respiratory failure, encephalopathy secondary to stroke and anoxic encephalopathy. She was initially admitted with complaints of sepsis secondary to pneumonia. She received broad spectrum IV antibiotics. This patient was in the hospital for almost five months, course was complicated by recurrent infection. She had a bacteremia associated with a PICC line. She had seizures that were confirmed on EEG. These were controlled with seizure medications orally. Multiple consultants were involved including Cardiology, Pulmonary, and Infectious Disease. The patient remained hospitalized for a significant amount of time because of difficulty with placement. Family had several places that they had preferences for. Unfortunately, those places did not have bed for the patient and could not accept the patient. Several accepting facilities were found, although they were not in the area. The patient remained medically stable for discharge for at least one to two months. Finally, she was accepted and a bed was found at the facility. cutter [employer] knife notified family members and it was notified that they were in agreement with the discharge, and the patient was transferred to the subacute nursing home facility in stable condition. She will be followed up there by the accepting physician at the subacute nursing home facility. DISCHARGE MEDICATIONS: Please see discharge medications list for discharge medications. DIET: G-tube feedings. ACTIVITIES: Ad-ida. Irvin Beltrán M.D. DR: HOLLI JOB#: [id number] CC:
== END 2019-06-02 17:40 | DRG 870 ==
LOC: EDUNIT# 22:07 → EDBD 22:07 → EDBEDREQ 22:25 → EMR 22:35 → 2W 22:40 → EDBEDREQ 22:48 → ICU 02-17 22:40
PROC: 5A1955Z Respiratory Ventilation, Greater than 96 Consecutive Hours (ICD-10-PCS; principal; 2019-01-23)
PROC: 06HN33Z Insertion of Infusion Device into Left Femoral Vein, Percutaneous Approach (ICD-10-PCS; 2019-01-24)
PROC: B548ZZA Ultrasonography of Superior Vena Cava, Guidance (ICD-10-PCS; 2019-02-11)
PROC: 02HV33Z Insertion of Infusion Device into Superior Vena Cava, Percutaneous Approach (ICD-10-PCS; 2019-02-11)
PROC: 0DHA8UZ Insertion of Feeding Device into Jejunum, Via Natural or Artificial Opening Endoscopic (ICD-10-PCS; 2019-03-20)
DX: A41.89 Other specified sepsis (principal); L89.224 Pressure ulcer of left hip, stage 4; J15.6 Pneumonia due to other Gram-negative bacteria; E43 Unspecified severe protein-calorie malnutrition; J15.0 Pneumonia due to Klebsiella pneumoniae; J15.1 Pneumonia due to Pseudomonas; J96.21 Acute and chronic respiratory failure with hypoxia; I50.33 Acute on chronic diastolic (congestive) heart failure; R65.21 Severe sepsis with septic shock; K83.1 Obstruction of bile duct; R40.3 Persistent vegetative state; G93.40 Encephalopathy, unspecified; Z99.11 Dependence on respirator [ventilator] status; N39.0 Urinary tract infection, site not specified; Z16.21 Resistance to vancomycin; K22.10 Ulcer of esophagus without bleeding; I13.0 Hypertensive heart and chronic kidney disease with heart failure and stage 1 through stage 4 chronic kidney disease, or unspecified chronic kidney disease; E87.0 Hyperosmolality and hypernatremia; K94.23 Gastrostomy malfunction; B37.7 Candidal sepsis; Z68.30 Body mass index [BMI] 30.0-30.9, adult; Y95 Nosocomial condition; E03.9 Hypothyroidism, unspecified; G30.9 Alzheimer's disease, unspecified; F02.80 Dementia in other diseases classified elsewhere, unspecified severity, without behavioral disturbance, psychotic disturbance, mood disturbance, and anxiety; G40.909 Epilepsy, unspecified, not intractable, without status epilepticus; Z86.73 Personal history of transient ischemic attack (TIA), and cerebral infarction without residual deficits; R13.10 Dysphagia, unspecified; Z93.0 Tracheostomy status; D64.9 Anemia, unspecified; L89.159 Pressure ulcer of sacral region, unspecified stage; Z68.23 Body mass index [BMI] 23.0-23.9, adult; R11.2 Nausea with vomiting, unspecified; Z74.01 Bed confinement status; B96.4 Proteus (mirabilis) (morganii) as the cause of diseases classified elsewhere; Z66 Do not resuscitate; K21.9 Gastro-esophageal reflux disease without esophagitis; N18.9 Chronic kidney disease, unspecified; E86.0 Dehydration; K59.00 Constipation, unspecified; R74.0 Nonspecific elevation of levels of transaminase and lactic acid dehydrogenase [LDH]
CPT/HCPCS: 36415; 36569; 36600; 71045; 74018; 74150; 74160; 74176; 76700; 76770; 76937; 80048; 80053; 80061; 80076; 80202; 80299; 81003; 82150; 82270; 82550; 82553; 82607; 82728; 82746; 82784; 82803; 82962; 83540; 83550; 83605; 83690; 83735; 83880; 84100; 84300; 84443; 84484; 84550; 85007; 85025; 85610; 85651; 85730; 86039; 86140; 86225; 86235; 86256; 86665; 86695; 86705; 86709; 86803; 86850; 86900; 86901; 86920; 87040; 87045; 87070; 87081; 87086; 87181; 87205; 87324; 87340; 89050; 93005; 94002; 94003; 94150; 94640; 94664; 95819; 96361; 96365; 96367; 99291; J2405; J2765; J7030; J7620; J8499